=== PATIENT | female | born 1960 | race Caucasian/White ===

== ENCOUNTER 2018-10-16 19:24 | Inpatient (IN) | payer MEDICARE, OTHER ==
[~2018-10-16] VITALS: Ht 160 cm; Wt 58.1 kg
[2018-10-16 22:00] VITALS: BP 108/49
[2018-10-16] MEDS ORDERED: Isovue-370 150ml vial INJ PRN (23:00)
[2018-10-17] VITALS (7 sets, daily range): BP systolic 98–121; BP diastolic 51–63
[2018-10-17 04:23] LABS: BASOPHILS % (AUTO) 1.6 % (0.0-2.0); EOSINOPHILS % (AUTO) 1.5 % (0.0-3.0); HEMATOCRIT 45.8 % (37.0-47.0); LYMPHOCYTES % (AUTO) 49.9 % (20.0-45.0); MEAN CORPUSCULAR VOLUME 104 FL (80-99); MONOCYTES % (AUTO) 9.8 % (1.0-10.0); NEUTROPHILS % (AUTO) 37.2 % (45.0-75.0); PLATELET COUNT 304 K/UL (150-450); RED BLOOD COUNT 4.38 M/UL (4.20-5.40); RED CELL DISTRIBUTION WIDTH 13.9 % (11.6-14.8); WHITE BLOOD COUNT 8.4 K/UL (4.8-10.8)
[2018-10-17 04:33] LABS: ANION GAP 7 mmol/L (5-15); BLOOD UREA NITROGEN 9 mg/dL (7-18); CALCIUM 9.2 MG/DL (8.5-10.1); CARBON DIOXIDE 24 MMOL/L (21-32); CHLORIDE 107 MMOL/L (98-107); CREATININE 0.6 MG/DL (0.55-1.30); POTASSIUM 4.8 MMOL/L (3.5-5.1); SODIUM 138 MMOL/L (136-145)
[2018-10-17 04:53] LABS: ALANINE AMINOTRANSFERASE 20 U/L (12-78); ALBUMIN 2.5 G/DL (3.4-5.0); ALBUMIN/GLOBULIN RATIO 0.5 (1.0-2.7); ALKALINE PHOSPHATASE 58 U/L (46-116); ASPARTATE AMINO TRANSFERASE 24 U/L (15-37); BILIRUBIN,TOTAL 0.3 MG/DL (0.2-1.0)
[2018-10-17 04:59] LABS: CKMB 0.4 NG/ML (0.0-3.6)
--- NOTE | 2018-10-17 05:39 | Emergency Room Report ---
History of Present Illness General Chief Complaint: General Complaint Source: Medical Record, EMS Present Illness HPI 58-year-old female presents ED for evaluation. Patient was sent in for "cardiology evaluation". Coming from group home facility. Patient has cognitive delay. Per nursing staff patient was sent in because patient needs cardiology evaluation and patient has peripheral arterial disease. Upon arrival patient showing no signs of distress. No reported chest pain or shortness of breath. Patient initially hypotensive on arrival. No fevers or chills. No other aggravating relieving factors. No other associated symptoms Allergies: Coded Allergies: No Known Allergies (Unverified , 10/16/18) Patient History Past Medical History: seizures Past Surgical History: none Pertinent Family History: none Social History: Denies: smoking, alcohol use, drug use Now: No Immunizations: UTD Reviewed Nursing Documentation: PMH: Agreed; PSxH: Agreed Nursing Documentation-PMH Hx Diabetes: No - Hypothyroid Hx Seizures: Yes Review of Systems All Other Systems: limited Physical Exam Vital Signs Date Time Temp Pulse Resp B/P (MAP) Pulse Ox O2 Delivery O2 Flow Rate FiO2 10/16/18 19:35 97.5 56 18 91/56 94 Room Air Sp02 EP Interpretation: reviewed, normal General Appearance: other - cognitive delay Head: normocephalic Eyes: bilateral eye normal inspection, bilateral eye PERRL ENT: normal ENT inspection Neck: normal inspection Respiratory: chest non-tender, lungs clear, normal breath sounds, speaking full sentences Cardiovascular #1: regular rate, rhythm, no edema Gastrointestinal: normal inspection Rectal: deferred Genitourinary: no CVA tenderness Musculoskeletal: other - contracted lower extremities Neurologic: other - cognitive delay Psychiatric: other - cognitive delay Skin: normal inspection Lymphatic: normal inspection Procedures Critical Care Time Critical Care Time i. I feel this is a highly complex case requiring extensive working including EKG/Rhythm strip, Xray/CT/US, Blood/urine lab work, repeat exams while in ED, and administration of strong opiates/narcotics for pain control, admission to hospital or close patient follow up. Total time: 45 min bedside evaluation and treatment excludes procedures (EKG). Reason for critical care: hypotension Possible complications: hypotension, hypertension, SC, shock, arrhythmias, metabolic acidosis, end organ damage, respiratory failure. Interventions: labs, IVFs, EKG, CXR, venous/arterial duplex. Course: Patient sent in for cardiology evaluation. Also noted have history of peripheral arterial disease. Pulses noted in contracted extremities. Venous and arterial duplex limited due to contracted limbs. Difficult IV access obtained. Labs unremarkable. Patient hypotensive. Responded with IV fluids Consultations: nursing staff, EMS, family Performed by: Dr Campbell Tolerated well condition = serious j. because of unstable vital signs this patient had a condition that could potentially threaten life or limb. I feel this is a critical patient who required my full attention while patient was considered critical. Total Critical Care Time excluding procedures was greater than 35 minutes Medical Decision Making Diagnostic Impression: Primary Impression: Peripheral arterial disease Additional Impression: Hypotension Qualified Codes: I95.9 - Hypotension, unspecified ER Course Hospital Course 58 yo F presents to ED for 'cardiology evaluation'. also noted to have peripheral arterial disease Differential diagnoses include: SC/unstable angina, ACS, arterial occlusion Clinical course Patient placed on stretcher. on hospital monitor. After initial history and physical I ordered labs, EKG, chest x-ray, venous/arterial duplex labs reviewed- no leukocytosis, hb/hct stable, electrolyes ok, trop negative EKG - NSR, no acute ischemic changes interpreted by me Chest x-ray- no acute process venous and arterial duplex limited study due to contracted extremities. there is a distal pulse in both extremities initially hypotensive, but responded to IV hydration Case discussed with Dr. Allred and he agreed to accept the patient to his service for further care and support I. I feel this is a highly complex case requiring extensive working including EKG/Rhythm strip, Xray/CT/US, Blood/urine lab work, repeat exams while in ED, and administration of strong opiates/narcotics for pain control, admission to hospital or close patient follow up. Diagnosis - peripheral arterial disease, hypotension admitted to telemetry in serious condition Labs Test 10/17/18 04:00 White Blood Count 8.4 K/UL (4.8-10.8) Red Blood Count 4.38 M/UL (4.20-5.40) Hemoglobin 15.0 G/DL (12.0-16.0) Hematocrit 45.8 % (37.0-47.0) Mean Corpuscular Volume 104 FL (80-99) Mean Corpuscular Hemoglobin 34.3 PG (27.0-31.0) Mean Corpuscular Hemoglobin Concent 32.8 G/DL (32.0-36.0) Red Cell Distribution Width 13.9 % (11.6-14.8) Platelet Count 304 K/UL (150-450) Mean Platelet Volume 6.2 FL (6.5-10.1) Neutrophils (%) (Auto) 37.2 % (45.0-75.0) Lymphocytes (%) (Auto) 49.9 % (20.0-45.0) Monocytes (%) (Auto) 9.8 % (1.0-10.0) Eosinophils (%) (Auto) 1.5 % (0.0-3.0) Basophils (%) (Auto) 1.6 % (0.0-2.0) Prothrombin Time 10.4 SEC (9.30-11.50) Prothromb Time International Ratio 1.0 (0.9-1.1) Activated Partial Thromboplast Time 22 SEC (23-33) Sodium Level 138 MMOL/L (136-145) Potassium Level 4.8 MMOL/L (3.5-5.1) Chloride Level 107 MMOL/L (98-107) Carbon Dioxide Level 24 MMOL/L (21-32) Anion Gap 7 mmol/L (5-15) Blood Urea Nitrogen 9 mg/dL (7-18) Creatinine 0.6 MG/DL (0.55-1.30) Estimat Glomerular Filtration Rate > 60 mL/min (>60) Glucose Level 76 MG/DL (74-106) Calcium Level 9.2 MG/DL (8.5-10.1) Total Bilirubin 0.3 MG/DL (0.2-1.0) Aspartate Amino Transf (AST/SGOT) 24 U/L (15-37) Alanine Aminotransferase (ALT/SGPT) 20 U/L (12-78) Alkaline Phosphatase 58 U/L (46-116) Total Creatine Kinase 45 U/L (26-140) Creatine Kinase MB 0.4 NG/ML (0.0-3.6) Creatine Kinase MB Relative Index 0.8 Troponin I 0.005 ng/mL (0.000-0.056) Pro-B-Type Natriuretic Peptide 65 pg/mL (0-125) Total Protein 7.5 G/DL (6.4-8.2) Albumin 2.5 G/DL (3.4-5.0) Globulin 5.0 g/dL Albumin/Globulin Ratio 0.5 (1.0-2.7) EKG Diagnostic Results Rate: normal Rhythm: NSR ST Segments: no acute changes ASA given to the pt in ED: No Rhythm Strip Diag. Results EP Interpretation: yes Rhythm: NSR, no PVC's, no ectopy Chest X-Ray Diagnostic Results Chest X-Ray Diagnostic Results : Chest X-Ray Ordered: Yes # of Views/Limited/Complete: 1 View Indication: Other EP Interpretation: Yes Interpretation: no consolidation, no effusion, no pneumothorax, no acute cardiopulmonary disease Impression: No acute disease Electronically Signed by: Electronically signed by Jt Campbell MD CT/MRI/US Diagnostic Results CT/MRI/US Diagnostic Results : Imaging Test Ordered: venous and arterial duplex Impression limited due to contracted extremities. patent flow in L thigh. unable to properly evaluate distal LLE and R leg. Last Vital Signs Date Time Temp Pulse Resp B/P (MAP) Pulse Ox O2 Delivery O2 Flow Rate FiO2 10/17/18 02:15 98.3 61 21 98/51 99 Room Air Status: improved Disposition: ADMITTED INPATIENT Condition: Serious Referrals: NON PHYSICIAN (PCP) Jt Campbell MD Oct 17, 2018 05:39
[2018-10-17] MEDS ORDERED: Morphine Sulfate 4mg/ml Inj (IV/IM USE ONLY) IVP PRN (07:00)
[2018-10-17] MEDS ORDERED: dilTIAZem HCl 25mg/5ml Inj IV PRN (07:00)
[2018-10-17] MEDS ORDERED: Ketorolac 30mg Inj IV PRN (07:00)
[2018-10-17] MEDS ORDERED: Nitroglycerin Subl 0.4mg tab SL PRN (07:00)
[2018-10-17] MEDS ORDERED: Albuterol/Ipratropium 3ml neb HHN PRN (07:00)
[2018-10-17] MEDS ORDERED: Miralax 17gm pkt ORAL PRN (07:00)
[2018-10-17] MEDS ORDERED: Enalaprilat 2.5mg/2ml Inj IV PRN (07:00)
[2018-10-17] MEDS ORDERED: ATIVAN0.5 MG ORAL (08:05)
[2018-10-17] MEDS ORDERED: KEPPRA750 MG GT (08:05)
[2018-10-17] MEDS ORDERED: CALCIUM 500 +1 EAC3 PO (08:05)
[2018-10-17] MEDS ORDERED: ACETAMINOPHEN325 M1 GT (08:05)
[2018-10-17] MEDS ORDERED: VITAMIN D400 INTLU GT (08:05)
[2018-10-17] MEDS ORDERED: DEPAKOTE SPRIN125 M1 GT (08:05)
[2018-10-17] MEDS ORDERED: VITAMIN C500 M1 GT (08:05)
[2018-10-17] MEDS ORDERED: MULTIVITAMINS1 EAC8 ORAL (08:05)
[2018-10-17] MEDS ORDERED: MIRALAX17 G2 ORAL (08:05)
[2018-10-17] MEDS ORDERED: DOCUSATE SODIU100 MG GT (08:05)
[2018-10-17] MEDS ORDERED: LEVOTHYROXINE75 MCG GT (08:05)
[2018-10-17] MEDS ORDERED: MILK OF MA400 MG/51 ORAL (08:05)
[2018-10-17] MEDS ORDERED: GUAIFENESIN-CO118 M1 ORAL (08:05)
[2018-10-17] MEDS: Aspirin Baby 81mg ORAL SCH (08:57)
[2018-10-17] MEDS: Heparin 5000 units/ml inj SUBQ SCH ×2 (08:58→21:00)
--- NOTE | 2018-10-17 09:55 | Diagnostic Imaging Report ---
Indication: Left leg pain Technique: Limited study performed, only the left common femoral vein, downstream superficial femoral vein could be interrogated due to patient being very contracted Comparison: none Findings: In the interrogated veins, no evidence of intraluminal thrombus is demonstrated. Normal compressibility. Normal phasic Doppler waveforms., Impression: Very limited exam. No evidence of common femoral or downstream femoral venous thrombosis demonstrated This agrees with the preliminary interpretation provided [facility] by [facility].
--- NOTE | 2018-10-17 10:37 | Diagnostic Imaging Report ---
Indication: Left leg pain Technique: Grayscale and duplex imaging of the left lower extremity arteries. Note that only limited images could be obtained, of the common femoral and proximal to mid superficial femoral artery, patient contracture. Comparison: none Findings: Doppler waveforms at all visualized levels are biphasic with sharp systolic peaks. Color Doppler demonstrates normal luminal patency. Impression: Limited exam, as described No evidence of lower extremity arterial insufficiency to the level of the mid superficial femoral artery. Distal disease not excludable
[2018-10-17] MEDS ORDERED: DEPAKOTE SPRIN125 MG PO (10:59)
[2018-10-17] MEDS: NovoLOG Insulin Flexpen SUBQ SCH ×2 (12:00→17:41)
--- NOTE | 2018-10-17 12:11 | Diagnostic Imaging Report ---
Indication: Chest pain Technique: One view of the chest Comparison: none Findings: Patient's chin obscures the upper mediastinum. The lungs and pleural spaces are clear. Heart size is normal. Impression: No acute process
--- NOTE | 2018-10-17 12:41 | History and Physical ---
History of Present Illness General Date patient seen: Oct 17, 2018 Reason for Hospitalization: General Complaint Present Illness HPI 58 year old female with hx trisomy 21, PEG feeding tube, seizures, hypothyroid, bed bound, [facility] resident [facility] for cardiac and vascular evaluation. Pt cant give any history. It's unknown what triggered the transfer to ER for cardiac evaluation. Pt was hypotensive in ER , therefore she is admitted to telemetry for further work up. Allergies: Coded Allergies: No Known Allergies (Unverified , 10/16/18) Medication History Scheduled Ascorbic Acid* (Vitamin C*), 500 MG GT DAILY, (Reported) Docusate Sodium* (Docusate Sodium*), 100 MG GT TWICE A DAY, (Reported) Levetiracetam (Keppra), 750 MG GT TWICE A DAY, (Reported) Levothyroxine Sodium* (Levothyroxine Sodium*), 75 MCG GT DAILY, (Reported) Lorazepam* (Ativan*), 0.5 MG ORAL THREE TIMES A DAY, (Reported) Magnesium Hydroxide* (Milk Of Magnesia*), 30 ML ORAL DAILY, (Reported) Multivitamin With Minerals (Multivitamins With Minerals*), 1 TAB ORAL DAILY, ( Reported) Polyethylene Glycol 3350* (Miralax*), 17 GM ORAL DAILY, (Reported) Vitamin D (Vitamin D3), 100 UNITS GT DAILY, (Reported) Scheduled PRN Acetaminophen* (Acetaminophen 325MG Tablet*), 650 MG GT Q4H PRN for Mild Pain ( Pain Scale 1-3), (Reported) Guaifenesin/Codeine Phos* (Robitussin Ac*), 1 TSP ORAL Q4H PRN for For Cough, ( Reported) Miscellaneous Medications Calcium Carbonate/Vitamin D3 (Calcium 500 + D Tablet), 1 EACH PO, (Reported) Divalproex Sodium (Depakote Sprinkle), 500 MG PO, (Reported) Patient History Healthcare decision maker Resuscitation status Full Code Advanced Directive on File Past Medical/Surgical History Past Medical/Surgical History: (1) Trisomy 21, Down syndrome (2) Hypothyroidism (3) Seizure disorder Review of Systems All Other Systems: negative except mentioned in HPI Physical Exam General Appearance: cachetic Lines, tubes and drains: peripheral HEENT: normocephalic Neck: non-tender, normal alignment Respiratory/Chest: chest wall non-tender, lungs clear Cardiovascular/Chest: normal peripheral pulses, normal rate Abdomen: normal bowel sounds, non tender Genitourinary/Rectal: normal genital exam Extremities: normal range of motion Skin Exam: normal pigmentation Last 24 Hour Vital Signs Date Time Temp Pulse Resp B/P (MAP) Pulse Ox O2 Delivery O2 Flow Rate FiO2 10/17/18 12:00 97.2 71 20 109/55 (73) 95 10/17/18 10:07 98.3 63 16 104/55 100 Room Air 10/17/18 09:01 Room Air 10/17/18 08:07 97.0 62 21 121/57 (78) 97 10/17/18 06:15 98.3 63 16 104/55 100 Room Air 10/17/18 04:30 98.7 67 18 100/63 99 Room Air 10/17/18 02:15 98.3 61 21 98/51 99 Room Air 10/17/18 01:00 98.1 63 18 99/62 99 Room Air 10/17/18 00:15 98.1 60 14 101/62 99 Room Air 10/16/18 22:00 97.5 58 14 108/49 97 Room Air 10/16/18 19:35 97.5 56 18 91/56 94 Room Air Laboratory Tests Test 10/17/18 04:00 White Blood Count 8.4 K/UL (4.8-10.8) Red Blood Count 4.38 M/UL (4.20-5.40) Hemoglobin 15.0 G/DL (12.0-16.0) Hematocrit 45.8 % (37.0-47.0) Mean Corpuscular Volume 104 FL (80-99) H Mean Corpuscular Hemoglobin 34.3 PG (27.0-31.0) H Mean Corpuscular Hemoglobin Concent 32.8 G/DL (32.0-36.0) Red Cell Distribution Width 13.9 % (11.6-14.8) Platelet Count 304 K/UL (150-450) Mean Platelet Volume 6.2 FL (6.5-10.1) L Neutrophils (%) (Auto) 37.2 % (45.0-75.0) L Lymphocytes (%) (Auto) 49.9 % (20.0-45.0) H Monocytes (%) (Auto) 9.8 % (1.0-10.0) Eosinophils (%) (Auto) 1.5 % (0.0-3.0) Basophils (%) (Auto) 1.6 % (0.0-2.0) Prothrombin Time 10.4 SEC (9.30-11.50) Prothromb Time International Ratio 1.0 (0.9-1.1) Activated Partial Thromboplast Time 22 SEC (23-33) L Sodium Level 138 MMOL/L (136-145) Potassium Level 4.8 MMOL/L (3.5-5.1) Chloride Level 107 MMOL/L (98-107) Carbon Dioxide Level 24 MMOL/L (21-32) Anion Gap 7 mmol/L (5-15) Blood Urea Nitrogen 9 mg/dL (7-18) Creatinine 0.6 MG/DL (0.55-1.30) Estimat Glomerular Filtration Rate > 60 mL/min (>60) Glucose Level 76 MG/DL (74-106) Calcium Level 9.2 MG/DL (8.5-10.1) Total Bilirubin 0.3 MG/DL (0.2-1.0) Aspartate Amino Transf (AST/SGOT) 24 U/L (15-37) Alanine Aminotransferase (ALT/SGPT) 20 U/L (12-78) Alkaline Phosphatase 58 U/L (46-116) Total Creatine Kinase 45 U/L (26-140) Creatine Kinase MB 0.4 NG/ML (0.0-3.6) Creatine Kinase MB Relative Index 0.8 Troponin I 0.005 ng/mL (0.000-0.056) Pro-B-Type Natriuretic Peptide 65 pg/mL (0-125) Total Protein 7.5 G/DL (6.4-8.2) Albumin 2.5 G/DL (3.4-5.0) L Globulin 5.0 g/dL Albumin/Globulin Ratio 0.5 (1.0-2.7) L Height (Feet): 5 Height (Inches): 3.00 Weight (Pounds): 129 Medications Current Medications Medications (Trade) Dose Ordered Sig/Katy Route PRN Reason Start Time Stop Time Status Last Admin Dose Admin Acetaminophen (Tylenol) 650 mg Q4H PRN ORAL FEVER 10/17/18 07:00 11/16/18 06:59 Albuterol/ Ipratropium (Albuterol/ Ipratropium) 3 ml Q4H PRN HHN Shortness of Breath 10/17/18 07:00 10/22/18 06:59 Aspirin (ASA) 162 mg DAILY ORAL 10/17/18 09:00 11/16/18 08:59 10/17/18 08:57 Dextrose (Dextrose 50%) 25 ml Q30M PRN IV Hypoglycemia 10/17/18 11:15 11/16/18 11:14 Dextrose (Dextrose 50%) 50 ml Q30M PRN IV Hypoglycemia 10/17/18 11:15 11/16/18 11:14 Diltiazem HCl (Cardizem) 10 mg Q1H PRN IV heart rate more than 120, 10/17/18 07:00 11/16/18 06:59 Divalproex Sodium (Depakote Sprinkles) 500 mg Q12HR GT 10/17/18 21:00 11/16/18 20:59 Enalaprilat (Vasotec) 2.5 mg Q6H PRN IV sbp more than 160 10/17/18 07:00 11/16/18 06:59 Heparin Sodium (Porcine) (Heparin 5000 units/ml) 5,000 units EVERY 12 HOURS SUBQ 10/17/18 09:00 11/16/18 08:59 10/17/18 08:58 Insulin Aspart (NovoLOG) Q6HR SUBQ 10/17/18 12:00 11/16/18 11:59 Ketorolac Tromethamine (Toradol 30mg) 30 mg Q6H PRN IV moderate pain ( 4-6) 10/17/18 07:00 10/22/18 06:59 Levetiracetam (Keppra) 750 mg Q12HR GT 10/17/18 21:00 11/16/18 20:59 Levothyroxine Sodium (Synthroid) 75 mcg DAILY GT 10/17/18 12:30 11/16/18 12:29 UNV Levothyroxine Sodium (Synthroid) 75 mcg DAILY@0630 ORAL 10/18/18 06:30 11/17/18 06:29 Morphine Sulfate (Morphine Sulfate) 2 mg Q4H PRN IVP severe Pain (Pain Scale 7-10) 10/17/18 07:00 10/24/18 06:59 Nitroglycerin (Ntg) 0.4 mg Q5M PRN SL Prn Chest Pain 10/17/18 07:00 11/16/18 06:59 Ondansetron HCl (Zofran) 4 mg Q6H PRN IVP Nausea & Vomiting 10/17/18 07:00 11/16/18 06:59 Polyethylene Glycol (Miralax) 17 gm DAILYPRN PRN ORAL Constipation 10/17/18 07:00 11/16/18 06:59 Temazepam (Restoril) 15 mg HSPRN PRN ORAL Insomnia 10/17/18 07:00 10/24/18 06:59 Assessment/Plan Problem List: (1) Hypotension ICD Codes: I95.9 - Hypotension, unspecified SNOMED: 46554102, [id number] Qualifiers: Qualified Codes: I95.9 - Hypotension, unspecified (2) Peripheral arterial disease ICD Codes: I73.9 - Peripheral vascular disease, unspecified SNOMED: 849719936, 467151210 (3) Seizure disorder ICD Codes: G40.909 - Epilepsy, unspecified, not intractable, without status epilepticus SNOMED: 073720036 (4) Hypothyroidism ICD Codes: E03.9 - Hypothyroidism, unspecified SNOMED: 07722225 (5) Trisomy 21, Down syndrome ICD Codes: Q90.9 - Down syndrome, unspecified SNOMED: 79872206 Assessment/Plan telemetry monitoring 2D echo cardiology evaluation nutrition evaluation symptomatic treatment synthyroid replacement Elayne Allred MD Oct 17, 2018 12:41
--- NOTE | 2018-10-17 15:37 | Cardiology Report ---
APPROVED REPORT EXAM: Two-dimensional and M-mode echocardiogram with Doppler and color Doppler. M-Mode DIMENSIONS IVSd1.1 (0.7-1.1cm)Left Atrium (MM)2.5 (1.6-4.0cm) LVDd5.7 (3.5-5.6cm)Aortic Root3.5 (2.0-3.7cm) PWd0.8 (0.7-1.1cm)Aortic Cusp Exc.1.8 (1.5-2.0cm) IVSs1.4 cm LVDs3.7 (2.5-4.0cm) PWs1.3 cm Technically difficult study due to poor acoustical windows. Normal left ventricular chamber size, systolic function and wall motion to extent visualized. Left ventricular ejection fraction estimated to be 55-60 %. No evidence of left ventricular hypertrophy. Anterior Echo-free space, may be due to pericardial fat or effusion. All other cardiac chamber sizes are within normal limits. Focal aortic valve sclerosis with adequate cusp excursion. Thickened mitral valve leaflets with normal excursion. Mitral annulus and aortic root calcification. Pulmonic valve not well visualized. Normal tricuspid valve structure. IVC at normal size with physiologic collapse. A color flow and spectral Doppler study was performed and revealed: No aortic regurgitation. Trace mitral regurgitation. Mitral diastolic velocities suggest reduced left ventricular relaxation c/w mild LV diastolic dysfunction (Grade I ). Trace tricuspid regurgitation. Tricuspid systolic velocities suggests peak right ventricular systolic pressure of 10 mmHg. No pulmonic regurgitation present.
--- NOTE | 2018-10-17 15:59 | Cardiology Report ---
APPROVED REPORT EKG Measurement Heart [id number] [id number] Normal sinus rhythm Low voltage QRS Right bundle branch block Abnormal ECG
--- NOTE | 2018-10-17 20:16 | Cardiology Progress Note ---
Assessment/Plan Assessment/Plan [id number] Objective Last 24 Hour Vital Signs Date Time Temp Pulse Resp B/P (MAP) Pulse Ox O2 Delivery O2 Flow Rate FiO2 10/17/18 16:00 53 10/17/18 12:00 56 10/17/18 12:00 97.2 71 20 109/55 (73) 95 10/17/18 10:07 98.3 63 16 104/55 100 Room Air 10/17/18 09:01 Room Air 10/17/18 08:41 57 10/17/18 08:07 97.0 62 21 121/57 (78) 97 10/17/18 06:15 98.3 63 16 104/55 100 Room Air 10/17/18 04:30 98.7 67 18 100/63 99 Room Air 10/17/18 02:15 98.3 61 21 98/51 99 Room Air 10/17/18 01:00 98.1 63 18 99/62 99 Room Air 10/17/18 00:15 98.1 60 14 101/62 99 Room Air 10/16/18 22:00 97.5 58 14 108/49 97 Room Air Laboratory Tests Test 10/17/18 04:00 White Blood Count 8.4 K/UL (4.8-10.8) Red Blood Count 4.38 M/UL (4.20-5.40) Hemoglobin 15.0 G/DL (12.0-16.0) Hematocrit 45.8 % (37.0-47.0) Mean Corpuscular Volume 104 FL (80-99) H Mean Corpuscular Hemoglobin 34.3 PG (27.0-31.0) H Mean Corpuscular Hemoglobin Concent 32.8 G/DL (32.0-36.0) Red Cell Distribution Width 13.9 % (11.6-14.8) Platelet Count 304 K/UL (150-450) Mean Platelet Volume 6.2 FL (6.5-10.1) L Neutrophils (%) (Auto) 37.2 % (45.0-75.0) L Lymphocytes (%) (Auto) 49.9 % (20.0-45.0) H Monocytes (%) (Auto) 9.8 % (1.0-10.0) Eosinophils (%) (Auto) 1.5 % (0.0-3.0) Basophils (%) (Auto) 1.6 % (0.0-2.0) Prothrombin Time 10.4 SEC (9.30-11.50) Prothromb Time International Ratio 1.0 (0.9-1.1) Activated Partial Thromboplast Time 22 SEC (23-33) L Sodium Level 138 MMOL/L (136-145) Potassium Level 4.8 MMOL/L (3.5-5.1) Chloride Level 107 MMOL/L (98-107) Carbon Dioxide Level 24 MMOL/L (21-32) Anion Gap 7 mmol/L (5-15) Blood Urea Nitrogen 9 mg/dL (7-18) Creatinine 0.6 MG/DL (0.55-1.30) Estimat Glomerular Filtration Rate > 60 mL/min (>60) Glucose Level 76 MG/DL (74-106) Calcium Level 9.2 MG/DL (8.5-10.1) Total Bilirubin 0.3 MG/DL (0.2-1.0) Aspartate Amino Transf (AST/SGOT) 24 U/L (15-37) Alanine Aminotransferase (ALT/SGPT) 20 U/L (12-78) Alkaline Phosphatase 58 U/L (46-116) Total Creatine Kinase 45 U/L (26-140) Creatine Kinase MB 0.4 NG/ML (0.0-3.6) Creatine Kinase MB Relative Index 0.8 Troponin I 0.005 ng/mL (0.000-0.056) Pro-B-Type Natriuretic Peptide 65 pg/mL (0-125) Total Protein 7.5 G/DL (6.4-8.2) Albumin 2.5 G/DL (3.4-5.0) L Globulin 5.0 g/dL Albumin/Globulin Ratio 0.5 (1.0-2.7) L Josue Pantoja MD Oct 17, 2018 20:16
[2018-10-17] MEDS ORDERED: Depakote 125mg Sprinkles GT SCH (21:00)
[2018-10-17] MEDS: Depakote 125mg Sprinkles GT SCH (21:00)
[2018-10-17] MEDS: levETIRAcetam 500mg/5ml Liquid GT SCH (21:00)
--- NOTE | 2018-10-17 23:00 | Consultation ---
DATE OF CONSULTATION: 10/17/2018 CARDIAC CONSULTATION CONSULTING PHYSICIAN: Josue Pantoja M.D. REFERRING PHYSICIAN: Elayne Allred M.D. REASON FOR EVALUATION: Possible vascular insufficiency. HISTORY OF PRESENT ILLNESS: This is a middle-aged female, developmentally delayed. The patient is a resident of convalescent facility and was transferred because of possibility of vascular insufficiency of the lower extremities. Consultation was requested. The patient is not able to provide any meaningful history whatsoever. PAST MEDICAL HISTORY: Positive for Down syndrome and malnutrition, status post PEG, peripheral vascular disease, sacral decubitus ulcers being documented as part of her diagnoses. MEDICATIONS: Include Ativan, calcium, divalproex, Colace, Keppra, Synthroid, MiraLAX, multivitamin, Robitussin, Tylenol, vitamin C, vitamin D, and no other medical information is available. ALLERGIES: The patient is not allergic to any medications. SOCIAL HISTORY: She does not smoke or drink. She lives in a convalescent facility. PHYSICAL EXAMINATION: GENERAL: Shows to be a middle-aged female, in no respiratory distress. Poor dental hygiene. VITAL SIGNS: Blood pressure is 109/55 with heart rate between 53 and 71, temperature 97.2. NECK: Supple. LUNGS: Clear to auscultation. CARDIAC: Regular rate and rhythm. ABDOMEN: Soft. Difficult to examine because of contracted lower extremities over the abdomen. EXTREMITIES: Contracted severely that there are significant abnormalities of the toenail. The patient does have palpable pulses in dorsalis pedis bilaterally. NEUROLOGICAL: Awake and responsive. Not communicative. LABORATORY VALUES: An echocardiogram was performed and showed ejection fraction being normal. No significant valve pathology was noted. EKG shows sinus rhythm, but with right bundle-branch conduction defect with leftward axis. No ST-T wave abnormalities. Venous duplex study of the lower extremities, limited views, does not show any significant problems of the proximal veins of the lower extremities and arterial duplex of lower extremity did not show inflow disease in the proximal portion of the arteries, distal portion was not amenable to visualization secondary to contractures. A chest x-ray was performed in the emergency room that showed no evidence of any acute process. INR 1, PTT of 22. Sodium is 138, potassium 4.0, chloride 107, bicarbonate 24, BUN of 9, creatinine 0.8. Troponin 0.05. ProBNP is only 65. White count 8.4, hemoglobin 15, and platelet count 304,000. ASSESSMENT AND PLAN: 1. Right bundle-branch conduction defect. 2. Sinus bradycardia. 3. Severely contracted lower extremities. 4. Down syndrome. 5. History of sacral decubitus ulcers. Dr. Allred, this patient was seen in cardiac consultation. Although venous and arterial duplex of lower extremities are difficult to perform, she does have palpable pulses of the lower extremities. Her echocardiogram appears to be normal LV function. EKG shows sinus bradycardia, but no significant abnormalities are noted. I have no further recommendations from cardiac point of view at this time. Discharge planning as per yourself. Josue Pantoja M.D. DR: Ryan JOB#: [id number] CC:
[2018-10-18] MEDS: NovoLOG Insulin Flexpen SUBQ SCH ×4 (06:00→18:00)
[2018-10-18 08:00] VITALS: BP 100/59
[2018-10-18 08:04] LABS: BASOPHILS % (AUTO) 1.5 % (0.0-2.0); EOSINOPHILS % (AUTO) 1.6 % (0.0-3.0); HEMATOCRIT 39.8 % (37.0-47.0); HEMOGLOBIN 13.3 G/DL (12.0-16.0); LYMPHOCYTES % (AUTO) 51.5 % (20.0-45.0); MEAN CORPUSCULAR VOLUME 102 FL (80-99); MONOCYTES % (AUTO) 12.9 % (1.0-10.0); NEUTROPHILS % (AUTO) 32.6 % (45.0-75.0); PLATELET COUNT 353 K/UL (150-450); RED CELL DISTRIBUTION WIDTH 13.6 % (11.6-14.8); WHITE BLOOD COUNT 6.4 K/UL (4.8-10.8)
[2018-10-18] MEDS: Heparin 5000 units/ml inj SUBQ SCH ×2 (08:20→20:50)
[2018-10-18] MEDS: levETIRAcetam 500mg/5ml Liquid GT SCH ×2 (08:21→20:48)
[2018-10-18] MEDS: Depakote 125mg Sprinkles GT SCH ×2 (08:22→20:50)
[2018-10-18] MEDS: Aspirin Baby 81mg ORAL SCH (08:22)
[2018-10-18 09:25] LABS: HDL CHOLESTEROL 32 MG/DL (40-60); TRIGLYCERIDES 94 MG/DL (30-150)
[2018-10-18 11:01] LABS: CHOLESTEROL 142 MG/DL (< 200)
[2018-10-18 12:00] VITALS: BP 113/71
--- NOTE | 2018-10-18 12:06 | Pulmonology Progress Note ---
Assessment/Plan Problems: (1) Hypotension (2) Peripheral arterial disease (3) Seizure disorder (4) Hypothyroidism (5) Trisomy 21, Down syndrome Assessment/Plan bp better still bradycardic increase the dose of synthroid all noted cardiology consult appreciated echo reviewed no seizures witnessed sinus rafael with lowest rate of 44 Subjective ROS Limited/Unobtainable: No Constitutional: Reports: no symptoms HEENT: Repors: no symptoms Respiratory: Reports: no symptoms Allergies: Coded Allergies: No Known Allergies (Unverified , 10/16/18) Objective Last 24 Hour Vital Signs Date Time Temp Pulse Resp B/P (MAP) Pulse Ox O2 Delivery O2 Flow Rate FiO2 10/18/18 09:00 Room Air 10/18/18 08:50 60 18 21 10/18/18 08:00 53 10/18/18 08:00 97.8 60 20 100/59 (73) 95 10/18/18 04:00 64 10/18/18 00:00 57 10/17/18 21:00 Room Air 10/17/18 20:00 84 10/17/18 16:00 53 General Appearance: WD/WN HEENT: normocephalic, atraumatic Respiratory/Chest: chest wall non-tender, lungs clear Cardiovascular: normal peripheral pulses, normal rate Abdomen: normal bowel sounds, soft, non tender Genitourinary: normal external genitalia Extremities: no clubbing Skin: no lesions Microbiology Date/Time Source Procedure Growth Status 10/17/18 06:00 Nasal Nares MRSA Culture - Final Staphylococcus Aureus - Mrsa Complete Laboratory Tests 10/18/18 06:52: White Blood Count 6.4, Red Blood Count 3.90L, Hemoglobin 13.3, Hematocrit 39.8, Mean Corpuscular Volume 102H, Mean Corpuscular Hemoglobin 34.1H, Mean Corpuscular Hemoglobin Concent 33.5, Red Cell Distribution Width 13.6, Platelet Count 353, Mean Platelet Volume 6.8, Neutrophils (%) (Auto) 32.6L, Lymphocytes ( %) (Auto) 51.5H, Monocytes (%) (Auto) 12.9H, Eosinophils (%) (Auto) 1.6, Basophils (%) (Auto) 1.5, Prothrombin Time 10.8, Prothromb Time International Ratio 1.0, Activated Partial Thromboplast Time 30, Troponin I 0.000, C-Reactive Protein, Quantitative 2.6H, Triglycerides Level 94, Cholesterol Level 142, LDL Cholesterol 91, HDL Cholesterol 32L, Cholesterol/HDL Ratio 4.4, Thyroid Stimulating Hormone (TSH) 6.754H Current Medications Medications (Trade) Dose Ordered Sig/Katy Route PRN Reason Start Time Stop Time Status Last Admin Dose Admin Acetaminophen (Tylenol) 650 mg Q4H PRN ORAL FEVER 10/17/18 07:00 11/16/18 06:59 Albuterol/ Ipratropium (Albuterol/ Ipratropium) 3 ml Q4H PRN HHN Shortness of Breath 10/17/18 07:00 10/22/18 06:59 Aspirin (ASA) 162 mg DAILY ORAL 10/17/18 09:00 11/16/18 08:59 10/18/18 08:22 Dextrose (Dextrose 50%) 25 ml Q30M PRN IV Hypoglycemia 10/17/18 11:15 11/16/18 11:14 Dextrose (Dextrose 50%) 50 ml Q30M PRN IV Hypoglycemia 10/17/18 11:15 11/16/18 11:14 Diltiazem HCl (Cardizem) 10 mg Q1H PRN IV heart rate more than 120, 10/17/18 07:00 11/16/18 06:59 Divalproex Sodium (Depakote Sprinkles) 500 mg Q12HR GT 10/17/18 21:00 11/16/18 20:59 10/18/18 08:22 Enalaprilat (Vasotec) 2.5 mg Q6H PRN IV sbp more than 160 10/17/18 07:00 11/16/18 06:59 Heparin Sodium (Porcine) (Heparin 5000 units/ml) 5,000 units EVERY 12 HOURS SUBQ 10/17/18 09:00 11/16/18 08:59 10/18/18 08:20 Insulin Aspart (NovoLOG) Q6HR SUBQ 10/17/18 12:00 11/16/18 11:59 10/17/18 17:41 Ketorolac Tromethamine (Toradol 30mg) 30 mg Q6H PRN IV moderate pain ( 4-6) 10/17/18 07:00 10/22/18 06:59 Levetiracetam (Keppra) 750 mg Q12HR GT 10/17/18 21:00 11/16/18 20:59 10/18/18 08:21 Levothyroxine Sodium (Synthroid) 75 mcg DAILY@0630 ORAL 10/18/18 06:30 11/17/18 06:29 10/18/18 06:30 Morphine Sulfate (Morphine Sulfate) 2 mg Q4H PRN IVP severe Pain (Pain Scale 7-10) 10/17/18 07:00 10/24/18 06:59 Nitroglycerin (Ntg) 0.4 mg Q5M PRN SL Prn Chest Pain 10/17/18 07:00 11/16/18 06:59 Ondansetron HCl (Zofran) 4 mg Q6H PRN IVP Nausea & Vomiting 10/17/18 07:00 11/16/18 06:59 Polyethylene Glycol (Miralax) 17 gm DAILYPRN PRN ORAL Constipation 10/17/18 07:00 11/16/18 06:59 Temazepam (Restoril) 15 mg HSPRN PRN ORAL Insomnia 10/17/18 07:00 10/24/18 06:59 Elayne Allred MD Oct 18, 2018 12:06
[2018-10-18 16:00] VITALS: BP 114/63
[2018-10-18 20:00] VITALS: BP 104/68
--- NOTE | 2018-10-18 20:10 | Cardiology Progress Note ---
Assessment/Plan Assessment/Plan 1. Right bundle-branch conduction defect. 2. Sinus bradycardia. 3. Severely contracted lower extremities. 4. Down syndrome. 5. History of sacral decubitus ulcers. noted synthorid dose increase tele sinus no new labs Subjective ROS Limited/Unobtainable: Yes Objective Last 24 Hour Vital Signs Date Time Temp Pulse Resp B/P (MAP) Pulse Ox O2 Delivery O2 Flow Rate FiO2 10/18/18 16:00 97.0 85 19 114/63 (80) 96 10/18/18 16:00 59 10/18/18 12:00 97.0 48 20 113/71 (85) 96 10/18/18 12:00 72 10/18/18 09:00 Room Air 10/18/18 08:50 60 18 21 10/18/18 08:00 53 10/18/18 08:00 97.8 60 20 100/59 (73) 95 10/18/18 04:00 64 10/18/18 00:00 57 10/17/18 21:00 Room Air General Appearance: no apparent distress, alert Cardiovascular: normal rate Respiratory/Chest: lungs clear, normal breath sounds Abdomen: normal bowel sounds, non tender, soft Extremities: no swelling Laboratory Tests Test 10/18/18 06:52 White Blood Count 6.4 K/UL (4.8-10.8) Red Blood Count 3.90 M/UL (4.20-5.40) L Hemoglobin 13.3 G/DL (12.0-16.0) Hematocrit 39.8 % (37.0-47.0) Mean Corpuscular Volume 102 FL (80-99) H Mean Corpuscular Hemoglobin 34.1 PG (27.0-31.0) H Mean Corpuscular Hemoglobin Concent 33.5 G/DL (32.0-36.0) Red Cell Distribution Width 13.6 % (11.6-14.8) Platelet Count 353 K/UL (150-450) Mean Platelet Volume 6.8 FL (6.5-10.1) Neutrophils (%) (Auto) 32.6 % (45.0-75.0) L Lymphocytes (%) (Auto) 51.5 % (20.0-45.0) H Monocytes (%) (Auto) 12.9 % (1.0-10.0) H Eosinophils (%) (Auto) 1.6 % (0.0-3.0) Basophils (%) (Auto) 1.5 % (0.0-2.0) Prothrombin Time 10.8 SEC (9.30-11.50) Prothromb Time International Ratio 1.0 (0.9-1.1) Activated Partial Thromboplast Time 30 SEC (23-33) Troponin I 0.000 ng/mL (0.000-0.056) C-Reactive Protein, Quantitative 2.6 mg/dL (0.00-0.90) H Triglycerides Level 94 MG/DL (30-150) Cholesterol Level 142 MG/DL (< 200) LDL Cholesterol 91 mg/dL (<100) HDL Cholesterol 32 MG/DL (40-60) L Cholesterol/HDL Ratio 4.4 (3.3-4.4) Thyroid Stimulating Hormone (TSH) 6.754 uiU/mL (0.358-3.740) Free Thyroxine 0.92 NG/DL (0.76-1.46) Free Triiodothyronine 1.5 pg/mL (2.3-4.2) L Microbiology Date/Time Source Procedure Growth Status 10/17/18 06:00 Nasal Nares MRSA Culture - Final Staphylococcus Aureus - Mrsa Complete Josue Pantoja MD Oct 18, 2018 20:10
--- NOTE | 2018-10-18 23:11 | Consultation ---
History of Present Illness General Chief Complaint: General Complaint Present Illness HPI 58 yo female with hx of down syndrome who was transferred via vascular insufficiency of the lower extremities. The patient was confused and he was not able to provide any meaningful history. the pt has been suffering from DD, anxiety and mood lability. the pt has been taking Ativan and Depakote outside of the hospital . the pt is manageable however has episodes of agitation Allergies: Coded Allergies: No Known Allergies (Unverified , 10/16/18) Medication History Scheduled Ascorbic Acid* (Vitamin C*), 500 MG GT DAILY, (Reported) Docusate Sodium* (Docusate Sodium*), 100 MG GT TWICE A DAY, (Reported) Levetiracetam (Keppra), 750 MG GT TWICE A DAY, (Reported) Levothyroxine Sodium* (Levothyroxine Sodium*), 75 MCG GT DAILY, (Reported) Lorazepam* (Ativan*), 0.5 MG ORAL THREE TIMES A DAY, (Reported) Magnesium Hydroxide* (Milk Of Magnesia*), 30 ML ORAL DAILY, (Reported) Multivitamin With Minerals (Multivitamins With Minerals*), 1 TAB ORAL DAILY, ( Reported) Polyethylene Glycol 3350* (Miralax*), 17 GM ORAL DAILY, (Reported) Vitamin D (Vitamin D3), 100 UNITS GT DAILY, (Reported) Scheduled PRN Acetaminophen* (Acetaminophen 325MG Tablet*), 650 MG GT Q4H PRN for Mild Pain ( Pain Scale 1-3), (Reported) Guaifenesin/Codeine Phos* (Robitussin Ac*), 1 TSP ORAL Q4H PRN for For Cough, ( Reported) Miscellaneous Medications Calcium Carbonate/Vitamin D3 (Calcium 500 + D Tablet), 1 EACH PO, (Reported) Divalproex Sodium (Depakote Sprinkle), 500 MG PO, (Reported) Patient History Limited by: medical condition History Provided By: Medical Record, PMD Healthcare decision maker Resuscitation status Full Code Advanced Directive on File Past Medical/Surgical History Past Medical/Surgical History: (1) Trisomy 21, Down syndrome (2) Hypotension (3) Peripheral arterial disease (4) Seizure disorder (5) Hypothyroidism Review of Systems Psychiatric: Reports: emotional problems Physical Exam General Appearance: alert, confused, agitated, overweight Last 24 Hour Vital Signs Date Time Temp Pulse Resp B/P (MAP) Pulse Ox O2 Delivery O2 Flow Rate FiO2 10/18/18 21:21 69 18 Room Air 21 10/18/18 21:00 Room Air 10/18/18 20:00 97.7 74 18 104/68 (80) 92 10/18/18 20:00 74 10/18/18 16:00 97.0 85 19 114/63 (80) 96 10/18/18 16:00 59 10/18/18 12:00 97.0 48 20 113/71 (85) 96 10/18/18 12:00 72 10/18/18 09:00 Room Air 10/18/18 08:50 60 18 21 10/18/18 08:00 53 10/18/18 08:00 97.8 60 20 100/59 (73) 95 10/18/18 04:00 64 10/18/18 00:00 57 Laboratory Tests Test 10/18/18 06:52 White Blood Count 6.4 K/UL (4.8-10.8) Red Blood Count 3.90 M/UL (4.20-5.40) L Hemoglobin 13.3 G/DL (12.0-16.0) Hematocrit 39.8 % (37.0-47.0) Mean Corpuscular Volume 102 FL (80-99) H Mean Corpuscular Hemoglobin 34.1 PG (27.0-31.0) H Mean Corpuscular Hemoglobin Concent 33.5 G/DL (32.0-36.0) Red Cell Distribution Width 13.6 % (11.6-14.8) Platelet Count 353 K/UL (150-450) Mean Platelet Volume 6.8 FL (6.5-10.1) Neutrophils (%) (Auto) 32.6 % (45.0-75.0) L Lymphocytes (%) (Auto) 51.5 % (20.0-45.0) H Monocytes (%) (Auto) 12.9 % (1.0-10.0) H Eosinophils (%) (Auto) 1.6 % (0.0-3.0) Basophils (%) (Auto) 1.5 % (0.0-2.0) Prothrombin Time 10.8 SEC (9.30-11.50) Prothromb Time International Ratio 1.0 (0.9-1.1) Activated Partial Thromboplast Time 30 SEC (23-33) Troponin I 0.000 ng/mL (0.000-0.056) C-Reactive Protein, Quantitative 2.6 mg/dL (0.00-0.90) H Triglycerides Level 94 MG/DL (30-150) Cholesterol Level 142 MG/DL (< 200) LDL Cholesterol 91 mg/dL (<100) HDL Cholesterol 32 MG/DL (40-60) L Cholesterol/HDL Ratio 4.4 (3.3-4.4) Thyroid Stimulating Hormone (TSH) 6.754 uiU/mL (0.358-3.740) Free Thyroxine 0.92 NG/DL (0.76-1.46) Free Triiodothyronine 1.5 pg/mL (2.3-4.2) L Height (Feet): 5 Height (Inches): 3.00 Weight (Pounds): 128 Medications Current Medications Medications (Trade) Dose Ordered Sig/Katy Route PRN Reason Start Time Stop Time Status Last Admin Dose Admin Acetaminophen (Tylenol) 650 mg Q4H PRN ORAL FEVER 10/17/18 07:00 11/16/18 06:59 Albuterol/ Ipratropium (Albuterol/ Ipratropium) 3 ml Q4H PRN HHN Shortness of Breath 10/17/18 07:00 10/22/18 06:59 Aspirin (ASA) 162 mg DAILY ORAL 10/17/18 09:00 11/16/18 08:59 10/18/18 08:22 Dextrose (Dextrose 50%) 25 ml Q30M PRN IV Hypoglycemia 10/17/18 11:15 11/16/18 11:14 Dextrose (Dextrose 50%) 50 ml Q30M PRN IV Hypoglycemia 10/17/18 11:15 11/16/18 11:14 Divalproex Sodium (Depakote Sprinkles) 500 mg Q12HR GT 10/17/18 21:00 11/16/18 20:59 10/18/18 20:50 Heparin Sodium (Porcine) (Heparin 5000 units/ml) 5,000 units EVERY 12 HOURS SUBQ 10/17/18 09:00 11/16/18 08:59 10/18/18 20:50 Insulin Aspart (NovoLOG) Q6HR SUBQ 10/17/18 12:00 11/16/18 11:59 10/17/18 17:41 Levetiracetam (Keppra) 750 mg Q12HR GT 10/17/18 21:00 11/16/18 20:59 10/18/18 20:48 Levothyroxine Sodium (Synthroid) 125 mcg DAILY@0630 ORAL 10/19/18 06:30 11/17/18 06:29 Assessment/Plan Problem List: (1) Trisomy 21, Down syndrome ICD Codes: Q90.9 - Down syndrome, unspecified SNOMED: 65981434 (2) Seizure disorder ICD Codes: G40.909 - Epilepsy, unspecified, not intractable, without status epilepticus SNOMED: 541973666 Assessment/Plan con tdepakote cont José Antonio Landis MD Oct 18, 2018 23:11
[2018-10-18] MEDS ORDERED: LORazepam 0.5mg tab ORAL PRN (23:15)
[2018-10-19] VITALS: BP 107/61
[2018-10-19 04:00] VITALS: BP 105/66
[2018-10-19] MEDS: NovoLOG Insulin Flexpen SUBQ SCH ×5 (05:48→23:16)
[2018-10-19] MEDS ORDERED: Levothyroxine 125mcg tab ORAL SCH (06:30)
[2018-10-19 08:00] VITALS: BP 98/93
[2018-10-19] MEDS: levETIRAcetam 500mg/5ml Liquid GT SCH ×2 (08:38→21:27)
[2018-10-19] MEDS: Heparin 5000 units/ml inj SUBQ SCH ×2 (08:39→21:28)
[2018-10-19] MEDS: Aspirin Baby 81mg ORAL SCH (08:40)
[2018-10-19] MEDS: Depakote 125mg Sprinkles GT SCH ×2 (08:46→21:25)
[2018-10-19 12:00] VITALS: BP 126/77
[2018-10-19] MEDS ORDERED: LEVOTHYROXINE125 MCG ORAL (12:29)
--- NOTE | 2018-10-19 12:31 | Pulmonology Progress Note ---
Assessment/Plan Problems: (1) Hypotension (2) Peripheral arterial disease (3) Seizure disorder (4) Hypothyroidism (5) Trisomy 21, Down syndrome Assessment/Plan bp better heart rate better increase the dose of synthroid all noted cardiology consult appreciated echo reviewed no seizures witnessed check TSH in a few weeks Subjective ROS Limited/Unobtainable: No Constitutional: Reports: no symptoms HEENT: Repors: no symptoms Allergies: Coded Allergies: No Known Allergies (Unverified , 10/16/18) Objective Last 24 Hour Vital Signs Date Time Temp Pulse Resp B/P (MAP) Pulse Ox O2 Delivery O2 Flow Rate FiO2 10/19/18 11:07 72 18 Room Air 21 10/19/18 09:00 Room Air 10/19/18 08:00 86 10/19/18 08:00 97.7 91 16 98/93 (95) 94 10/19/18 04:00 97.1 71 18 105/66 (79) 94 10/19/18 04:00 70 10/19/18 00:00 62 10/19/18 00:00 97.6 65 18 107/61 (76) 93 10/18/18 21:21 69 18 Room Air 21 10/18/18 21:00 Room Air 10/18/18 20:00 97.7 74 18 104/68 (80) 92 10/18/18 20:00 74 10/18/18 16:00 97.0 85 19 114/63 (80) 96 10/18/18 16:00 59 Intake and Output 10/18/18 10/19/18 19:00 07:00 Intake Total 780 ml Balance 780 ml Intake Free Water 330 ml Tube Feeding 450 ml # Voids 2 2 General Appearance: WD/WN HEENT: normocephalic Respiratory/Chest: chest wall non-tender, lungs clear Breasts: no masses Cardiovascular: normal rate Abdomen: normal bowel sounds, soft, non tender Extremities: no cyanosis Neurologic/Psychiatric: online education manager II-XII grossly normal Microbiology Date/Time Source Procedure Growth Status 10/17/18 06:00 Nasal Nares MRSA Culture - Final Staphylococcus Aureus - Mrsa Complete 10/17/18 06:00 Rectum VRE Culture - Final Enterococcus Faecium - Vre Complete 10/17/18 06:00 Rectum - Final NO CARBAPENEM-RESISTANT ENTEROBACTERI... Complete Laboratory Tests 10/19/18 07:00: Troponin I 0.005 Current Medications Medications (Trade) Dose Ordered Sig/Katy Route PRN Reason Start Time Stop Time Status Last Admin Dose Admin Acetaminophen (Tylenol) 650 mg Q4H PRN ORAL FEVER 10/17/18 07:00 11/16/18 06:59 Albuterol/ Ipratropium (Albuterol/ Ipratropium) 3 ml Q4H PRN HHN Shortness of Breath 10/17/18 07:00 10/22/18 06:59 Aspirin (ASA) 162 mg DAILY ORAL 10/17/18 09:00 11/16/18 08:59 10/19/18 08:40 Dextrose (Dextrose 50%) 25 ml Q30M PRN IV Hypoglycemia 10/17/18 11:15 11/16/18 11:14 Dextrose (Dextrose 50%) 50 ml Q30M PRN IV Hypoglycemia 10/17/18 11:15 11/16/18 11:14 Divalproex Sodium (Depakote Sprinkles) 500 mg Q12HR GT 10/17/18 21:00 11/16/18 20:59 10/19/18 08:46 Heparin Sodium (Porcine) (Heparin 5000 units/ml) 5,000 units EVERY 12 HOURS SUBQ 10/17/18 09:00 11/16/18 08:59 10/19/18 08:39 Insulin Aspart (NovoLOG) Q6HR SUBQ 10/17/18 12:00 11/16/18 11:59 10/19/18 05:48 Levetiracetam (Keppra) 750 mg Q12HR GT 10/17/18 21:00 11/16/18 20:59 10/19/18 08:38 Levothyroxine Sodium (Synthroid) 125 mcg DAILY@0630 ORAL 10/19/18 06:30 11/17/18 06:29 10/19/18 06:00 Lorazepam (Ativan) 1 mg Q6H PRN ORAL For Anxiety 10/18/18 23:15 10/25/18 23:14 Elayne Allred MD Oct 19, 2018 12:31
--- NOTE | 2018-10-19 15:38 | General Progress Note ---
Assessment/Plan Problem List: (1) Trisomy 21, Down syndrome ICD Codes: Q90.9 - Down syndrome, unspecified SNOMED: 91070032 (2) Seizure disorder ICD Codes: G40.909 - Epilepsy, unspecified, not intractable, without status epilepticus SNOMED: 534790410 Assessment/Plan con tdepakote cont ativan Subjective Neurologic/Psychiatric: Reports: anxiety, depressed, emotional problems Allergies: Coded Allergies: No Known Allergies (Unverified , 10/16/18) Objective Last 24 Hour Vital Signs Date Time Temp Pulse Resp B/P (MAP) Pulse Ox O2 Delivery O2 Flow Rate FiO2 10/19/18 11:07 72 18 Room Air 21 10/19/18 09:00 Room Air 10/19/18 08:00 86 10/19/18 08:00 97.7 91 16 98/93 (95) 94 10/19/18 04:00 97.1 71 18 105/66 (79) 94 10/19/18 04:00 70 10/19/18 00:00 62 10/19/18 00:00 97.6 65 18 107/61 (76) 93 10/18/18 21:21 69 18 Room Air 21 10/18/18 21:00 Room Air 10/18/18 20:00 97.7 74 18 104/68 (80) 92 10/18/18 20:00 74 10/18/18 16:00 97.0 85 19 114/63 (80) 96 10/18/18 16:00 59 Intake and Output 10/18/18 10/19/18 19:00 07:00 Intake Total 780 ml Balance 780 ml Intake Free Water 330 ml Tube Feeding 450 ml # Voids 2 2 Laboratory Tests 10/19/18 07:00: Troponin I 0.005 Height (Feet): 5 Height (Inches): 3.00 Weight (Pounds): 128 General Appearance: alert, confused Neurologic: depressed affect José Antonio Wilde MD Oct 19, 2018 15:38
[2018-10-19 16:00] VITALS: BP 121/69
--- NOTE | 2018-10-19 19:33 | Cardiology Progress Note ---
Assessment/Plan Assessment/Plan 1. Right bundle-branch conduction defect. 2. Sinus bradycardia. 3. Severely contracted lower extremities. 4. Down syndrome. 5. History of sacral decubitus ulcers. noted synthorid dose increase tele sinus rate better no new labs Subjective ROS Limited/Unobtainable: Yes Objective Last 24 Hour Vital Signs Date Time Temp Pulse Resp B/P (MAP) Pulse Ox O2 Delivery O2 Flow Rate FiO2 10/19/18 16:00 98.0 79 16 121/69 (86) 92 10/19/18 12:00 98.0 79 16 126/77 (93) 93 10/19/18 11:50 78 10/19/18 11:07 72 18 Room Air 21 10/19/18 09:00 Room Air 10/19/18 08:00 86 10/19/18 08:00 97.7 91 16 98/93 (95) 94 10/19/18 04:00 97.1 71 18 105/66 (79) 94 10/19/18 04:00 70 10/19/18 00:00 62 10/19/18 00:00 97.6 65 18 107/61 (76) 93 10/18/18 21:21 69 18 Room Air 21 10/18/18 21:00 Room Air 10/18/18 20:00 97.7 74 18 104/68 (80) 92 10/18/18 20:00 74 General Appearance: no apparent distress, other - sleeping Intake and Output 10/18/18 10/19/18 18:59 06:59 Intake Total 780 ml Balance 780 ml Intake Free Water 330 ml Tube Feeding 450 ml # Voids 4 2 Laboratory Tests Test 10/19/18 07:00 Troponin I 0.005 ng/mL (0.000-0.056) Microbiology Date/Time Source Procedure Growth Status 10/17/18 06:00 Nasal Nares MRSA Culture - Final Staphylococcus Aureus - Mrsa Complete 10/17/18 06:00 Rectum VRE Culture - Final Enterococcus Faecium - Vre Complete 10/17/18 06:00 Rectum - Final NO CARBAPENEM-RESISTANT ENTEROBACTERI... Complete Josue Pantoja MD Oct 19, 2018 19:33
[2018-10-19] MEDS ORDERED: LORazepam 0.5mg tab ORAL PRN (22:00)
[2018-10-19] MEDS ORDERED: Albuterol/Ipratropium 3ml neb HHN PRN (22:30)
[2018-10-20] VITALS: BP 136/76
[2018-10-20 00:31] VITALS: BP 109/67
[2018-10-20 04:00] VITALS: BP 106/68
[2018-10-20] MEDS: NovoLOG Insulin Flexpen SUBQ SCH ×2 (06:00→11:33)
[2018-10-20] MEDS ORDERED: Levothyroxine 125mcg tab ORAL SCH (06:30)
[2018-10-20 08:00] VITALS: BP 114/82
[2018-10-20] MEDS ORDERED: Heparin 5000 units/ml inj SUBQ SCH (09:00)
[2018-10-20] MEDS ORDERED: Depakote 125mg Sprinkles GT SCH (09:00)
[2018-10-20] MEDS ORDERED: levETIRAcetam 500mg/5ml Liquid GT SCH (09:00)
[2018-10-20] MEDS ORDERED: Aspirin Baby 81mg ORAL SCH (09:00)
[2018-10-20] MEDS ORDERED: Sterile Water Irrig 1000ml IRRIG ONE (10:29)
[2018-10-20 12:00] VITALS: BP 95/44
[2018-10-20 13:35] VITALS: BP 100/58
--- NOTE | 2018-10-20 23:40 | General Progress Note ---
Assessment/Plan Problem List: (1) Trisomy 21, Down syndrome ICD Codes: Q90.9 - Down syndrome, unspecified SNOMED: 97329097 (2) Seizure disorder ICD Codes: G40.909 - Epilepsy, unspecified, not intractable, without status epilepticus SNOMED: 646731285 Assessment/Plan con tdepakote cont ativan Subjective Date patient seen: Oct 20, 2018 Neurologic/Psychiatric: Reports: anxiety, depressed, emotional problems Allergies: Coded Allergies: No Known Allergies (Unverified , 10/16/18) Objective Last 24 Hour Vital Signs Date Time Temp Pulse Resp B/P (MAP) Pulse Ox O2 Delivery O2 Flow Rate FiO2 10/20/18 13:35 97.2 77 20 100/58 (72) 93 10/20/18 12:00 97.6 51 20 95/44 (61) 97 10/20/18 09:00 Room Air 10/20/18 08:00 97.5 76 20 114/82 (93) 98 10/20/18 05:00 Nasal Cannula 2.0 10/20/18 04:00 98.9 70 20 106/68 (81) 96 10/20/18 00:31 99.4 85 20 109/67 (81) 91 10/20/18 00:00 98.5 72 20 136/76 (96) 94 Intake and Output 10/19/18 10/20/18 18:59 06:59 Intake Total 515 ml Balance 515 ml Intake Free Water 200 ml Tube Feeding 315 ml # Voids 1 1 Height (Feet): 5 Height (Inches): 3.00 Weight (Pounds): 128 General Appearance: alert, confused José Antonio Wilde MD Oct 20, 2018 23:40
--- NOTE | 2018-10-22 08:43 | Discharge Summary ---
Discharge Summary Discharge Summary _ DATE OF ADMISSION: 10/17/2018 DATE OF DISCHARGE: 10/20/2018 DISCHARGED BY: Dr. Allred REASON FOR ADMISSION: 58 years old fe male with history of trisomy 21, dysphagia , feeding by G-tube, seizure disorder, hypothyroidism, bedbound, residential resident, was brought by paramedics from [facility] for cardiac evaluation. Patient with history of peripheral arterial disease. No reported chest pain or shortness of breath. No fever , no chills. Patient by herself was unable to provide any history. Upon evaluation patient was hypotensive with blood pressure 91/56. Heart rate was 56. Distal pulse in both extremities were present. Troponin negative , EKG revealed sinus rhythm, no acute ischemic changes. Chest x-ray revealed no acute cardiopulmonary pathology. Laboratory workup revealed no leukocytosis, stable hemoglobin hematocrit. Patient initially was hypotensive but responded to IV hydration. Patient admitted for further management. CONSULTANTS: box gluer Dr. Pantoja psychiatrist [facility]: Patient initially admitted to telemetry floor and started on gentle IV hydration. Cardiology consult was requested. Venous duplex of left lower extremity was of limited value due to contracted lower extremity ; no evidence of common femoral or downstream femoral venous thrombosis was demonstrated. Arterial duplex of left lower extremity was limited due to severe contraction , but showed no evidence of lower extremity arterial insufficiency to the level of the mid superficial femoral artery. Distal disease was not excludable. Antiplatelet therapy with aspirin continued. Echocardiogram revealed preserved ejection fraction 55-60%. No evidence of left ventricular hypertrophy. No evidence of wall motion abnormality. Right ventricular systolic pressure of 10. TSH elevated with low T3 . Dose of Synthroid was increased. Seizure precautions were maintained. No evidence of seizure activity while in the hospital. Keppra and Depakote were continued. Blood sugar was managed with sliding scale of insulin. DVT prophylaxis provided. Strict aspiration precautions were maintained. Patient was able to tolerate tube feeding. Supportive care provided. Bowel regimen instituted Bradycardia was mild and resolved with IV hydration. Blood pressure stabilized with IV hydration. Patient stabilized and was ready for transfer back to facility for continuation of care. FINAL DIAGNOSES: Hypotension Peripheral arterial disease Right bundle branch conduction defect Sinus bradycardia -resolved Hypothyroidism Seizure disorder Trisomy 21/Down syndrome DISCHARGE MEDICATION See Medication Reconciliation list. DISCHARGE INSTRUCTIONS: [facility] Follow up with medical doctor at the facility. I have been assigned to dictate discharge summary for this account. I was not involved in the patient's management. Carla Jj NP Oct 22, 2018 08:43
== END 2018-10-20 15:45 | DRG 315 ==
LOC: EDBD 19:24 → EMR 22:07 → 2E 10-17 02:53 → EDBEDREQ 10-17 06:01 → 4E 10-19 22:06
DX: I95.9 Hypotension, unspecified (principal); I45.89 Other specified conduction disorders; Z43.1 Encounter for attention to gastrostomy; I73.9 Peripheral vascular disease, unspecified; R00.1 Bradycardia, unspecified; G40.909 Epilepsy, unspecified, not intractable, without status epilepticus; Q90.9 Down syndrome, unspecified; Z74.01 Bed confinement status; E03.9 Hypothyroidism, unspecified; I99.8 Other disorder of circulatory system; L89.159 Pressure ulcer of sacral region, unspecified stage; M62.462 Contracture of muscle, left lower leg; M62.461 Contracture of muscle, right lower leg
CPT/HCPCS: 36415; 71045; 80053; 80061; 82550; 82553; 82962; 83880; 84439; 84443; 84481; 84484; 85025; 85610; 85730; 86140; 87081; 93005; 93306; 93926; 93971; 94664; 96360; 96361; 99291; J1815

== ENCOUNTER 2018-11-09 18:46 | Inpatient (IN) | payer MEDICARE, OTHER ==
[~2018-11-09] VITALS: Ht 162.6 cm; Wt 58.7 kg
[~2018-11-09 18:46] MED LIST: ACETAMINOPHEN325 M1 GT; ATIVAN0.5 MG ORAL; CALCIUM 500 +1 EAC3 PO; DEPAKOTE SPRIN125 M1 GT; DEPAKOTE SPRIN125 MG PO; DOCUSATE SODIU100 MG GT; GUAIFENESIN-CO118 M1 ORAL; KEPPRA750 MG GT; LEVOTHYROXINE125 MCG ORAL; LEVOTHYROXINE75 MCG GT; MILK OF MA400 MG/51 ORAL; MIRALAX17 G2 ORAL; MULTIVITAMINS1 EAC8 ORAL; VITAMIN C500 M1 GT; VITAMIN D400 INTLU GT
[2018-11-09 19:00] VITALS: BP 110/87
[2018-11-09] MEDS ORDERED: Albuterol ud Inhalation HHN ONE (19:15)
[2018-11-09] MEDS ORDERED: Ipratropium 0.02% Inh Soln 2.5ml UD HHN ONE (19:15)
[2018-11-09] MEDS ORDERED: Solu-MEDROL 125mg Inj IVP ONE (19:15)
[2018-11-09 19:33] LABS: BASOPHILS % (AUTO) 0.9 % (0.0-2.0); EOSINOPHILS % (AUTO) 0.8 % (0.0-3.0); HEMATOCRIT 45.1 % (37.0-47.0); HEMOGLOBIN 15.1 G/DL (12.0-16.0); LYMPHOCYTES % (AUTO) 28.3 % (20.0-45.0); MEAN CORPUSCULAR VOLUME 103 FL (80-99); MONOCYTES % (AUTO) 9.2 % (1.0-10.0); NEUTROPHILS % (AUTO) 60.8 % (45.0-75.0); PLATELET COUNT 219 K/UL (150-450); RED BLOOD COUNT 4.39 M/UL (4.20-5.40); RED CELL DISTRIBUTION WIDTH 13.6 % (11.6-14.8); WHITE BLOOD COUNT 11.6 K/UL (4.8-10.8)
[2018-11-09 19:34] LABS: ANION GAP 2 mmol/L (5-15); BLOOD UREA NITROGEN 11 mg/dL (7-18); CALCIUM 8.7 MG/DL (8.5-10.1); CARBON DIOXIDE 32 MMOL/L (21-32); CHLORIDE 105 MMOL/L (98-107); CREATININE 0.5 MG/DL (0.55-1.30); POTASSIUM 4.2 MMOL/L (3.5-5.1); SODIUM 139 MMOL/L (136-145)
[2018-11-09 19:38] LABS: ALANINE AMINOTRANSFERASE 20 U/L (12-78); ALBUMIN 2.2 G/DL (3.4-5.0); ALBUMIN/GLOBULIN RATIO 0.5 (1.0-2.7); ALKALINE PHOSPHATASE 60 U/L (46-116); ASPARTATE AMINO TRANSFERASE 19 U/L (15-37); BILIRUBIN,TOTAL 0.2 MG/DL (0.2-1.0); CREATINE KINASE 45 U/L (26-308)
--- NOTE | 2018-11-09 20:13 | Diagnostic Imaging Report ---
EXAM: XR Chest, 1 View CLINICAL HISTORY: PAIN TECHNIQUE: Frontal view of the chest. COMPARISON: 10/17/2018 FINDINGS: Lungs: Nonspecific bilateral interstitial prominence can be seen in the setting of mild interstitial edema or chronic interstitial lung disease. Hypoventilatory lungs. Pleural space: Unremarkable. No pneumothorax. Heart: Stable cardiomediastinal silhouette. Mediastinum: See above. Bones/joints: No acute osseous abnormality. IMPRESSION: Nonspecific bilateral interstitial prominence can be seen in the setting of mild interstitial edema or chronic interstitial lung disease.
[2018-11-09 20:41] LABS: APPEARANCE,URINE SLIGHTLY CLOUDY; BILIRUBIN, URINE NEGATIVE (NEGATIVE); COLOR,URINE PALE YELLOW; GLUCOSE, URINE (UA) NEGATIVE (NEGATIVE); KETONES,URINE NEGATIVE (NEGATIVE); LEUKOCYTE ESTERASE ,URINE 1+ (NEGATIVE); NITRITE,URINE NEGATIVE (NEGATIVE); PH,URINE 7 (4.5-8.0); PROTEIN,URINE NEGATIVE (NEGATIVE); UROBILINOGEN,URINE NORMAL MG/DL (0.0-1.0)
[2018-11-09] MEDS ORDERED: Albuterol/Ipratropium 3ml neb HHN PRN (21:00)
[2018-11-09] MEDS ORDERED: Morphine Sulfate 4mg/ml Inj (IV/IM USE ONLY) IVP PRN (21:00)
[2018-11-09] MEDS ORDERED: LORazepam Inj 2mg/ml 1ml IV PRN (21:00)
[2018-11-09] MEDS ORDERED: Dextrose 50% 25ml Syringe IV PRN (21:00)
[2018-11-09] MEDS ORDERED: Miralax 17gm pkt ORAL PRN (21:00)
[2018-11-09] MEDS ORDERED: Miralax 17gm pkt GT PRN (21:15)
[2018-11-09] MEDS ORDERED: Acetaminophen 650mg/20.3ml GT PRN (21:15)
[2018-11-09] MEDS ORDERED: LEVOTHYROXINE125 MCG ORAL (21:25)
[2018-11-09] MEDS ORDERED: KEPPRA100 MG/1 M IV (21:25)
[2018-11-09] MEDS ORDERED: MILK OF MA400 MG/51 ORAL (21:25)
[2018-11-09] MEDS ORDERED: TYLENOL325 M1 PO (21:25)
[2018-11-09] MEDS ORDERED: ATIVAN1 MG ORAL (21:25)
[2018-11-09 21:29] VITALS: BP 111/85
--- NOTE | 2018-11-09 22:29 | Emergency Room Report ---
History of Present Illness General Chief Complaint: Upper Respiratory Illness Source: Medical Record Present Illness HPI 58-year-old female presents ED for evaluation. Referred to ED for reported cough and congestion for several days. Coming from [facility]. Chest x-ray done at [facility] which showed pneumonia. Patient afebrile. No signs of distress. No reported chest pain or shortness of breath. Patient is nonverbal at baseline. No other aggravating relieving factors. No other associated symptoms Allergies: Coded Allergies: No Known Allergies (Unverified , 10/16/18) Patient History Past Medical History: seizures, other - MR Past Surgical History: none Pertinent Family History: none Social History: Denies: smoking, alcohol use, drug use Now: No Immunizations: UTD Reviewed Nursing Documentation: PMH: Agreed; PSxH: Agreed Nursing Documentation-PMH Past Medical History: No History, Except For Hx Diabetes: No - Hypothyroid Hx Seizures: Yes Review of Systems All Other Systems: limited Physical Exam Vital Signs Date Time Temp Pulse Resp B/P (MAP) Pulse Ox O2 Delivery O2 Flow Rate FiO2 11/09/18 18:48 98.6 79 16 90/55 94 Nasal Cannula 2.0 11/09/18 19:00 99 Sp02 EP Interpretation: reviewed, normal General Appearance: no apparent distress, alert, non-toxic, other - nonverbal Head: normocephalic, atraumatic Eyes: bilateral eye normal inspection, bilateral eye PERRL ENT: hearing grossly normal, normal pharynx, no angioedema, normal voice Neck: full range of motion, supple/symm/no masses Respiratory: chest non-tender, crackles, speaking full sentences, wheezing Cardiovascular #1: regular rate, rhythm, no edema Cardiovascular #2: 2+ carotid (R), 2+ carotid (L), 2+ radial (R), 2+ radial (L) , 2+ dorsalis pedis (R), 2+ dorsalis pedis (L) Gastrointestinal: normal bowel sounds, non tender, soft, non-distended, no guarding, no rebound Rectal: deferred Genitourinary: normal inspection, no CVA tenderness Musculoskeletal: back normal, gait/station normal, normal range of motion, non- tender Neurologic: responsive, motor strength/tone normal, sensory intact, speech normal, other - nonverbal Psychiatric: other - nonverbal Reflexes: 3+ bicep (R), 3+ bicep (L), 3+ tricep (R), 3+ tricep (L), 3+ knee (R) , 3+ knee (L) Skin: normal color, no rash, warm/dry, well hydrated Lymphatic: no adenopathy Medical Decision Making Diagnostic Impression: Primary Impression: Pneumonia Qualified Codes: J18.9 - Pneumonia, unspecified organism Additional Impression: Trisomy 21, Down syndrome ER Course Hospital Course 58-year-old female presents to ED complaining of cough, congestion Differential diagnoses include: URI, bronchitis, asthma/COPD, pneumonia Clinical course Patient placed on stretcher. After initial history, physical exam reveals a female in no acute distress. Bilateral TM unremarkable. No pharyngeal erythema. No tonsillar exudates. No lymphadenopathy. lungs wheezing I ordered labs, IV fluids, nebs, solumedrol, chest x-ray. Labs reviewed-leukocytosis noted, hemoglobin/hematocrit stable, electrolytes okay, lactic ok EKG - NSR, no acute ischemic changes interpreted by me Chest x-ray shows bilateral intersitial congestion Antibiotics given. Patient will be admitted to Dr. Allred Diagnosis - pneumonia, trisomy admitted to floor in serious condition Labs Test 11/09/18 19:15 11/09/18 20:00 White Blood Count 11.6 K/UL (4.8-10.8) Red Blood Count 4.39 M/UL (4.20-5.40) Hemoglobin 15.1 G/DL (12.0-16.0) Hematocrit 45.1 % (37.0-47.0) Mean Corpuscular Volume 103 FL (80-99) Mean Corpuscular Hemoglobin 34.3 PG (27.0-31.0) Mean Corpuscular Hemoglobin Concent 33.4 G/DL (32.0-36.0) Red Cell Distribution Width 13.6 % (11.6-14.8) Platelet Count 219 K/UL (150-450) Mean Platelet Volume 7.4 FL (6.5-10.1) Neutrophils (%) (Auto) 60.8 % (45.0-75.0) Lymphocytes (%) (Auto) 28.3 % (20.0-45.0) Monocytes (%) (Auto) 9.2 % (1.0-10.0) Eosinophils (%) (Auto) 0.8 % (0.0-3.0) Basophils (%) (Auto) 0.9 % (0.0-2.0) Sodium Level 139 MMOL/L (136-145) Potassium Level 4.2 MMOL/L (3.5-5.1) Chloride Level 105 MMOL/L (98-107) Carbon Dioxide Level 32 MMOL/L (21-32) Anion Gap 2 mmol/L (5-15) Blood Urea Nitrogen 11 mg/dL (7-18) Creatinine 0.5 MG/DL (0.55-1.30) Estimat Glomerular Filtration Rate > 60 mL/min (>60) Glucose Level 102 MG/DL (74-106) Lactic Acid Level 1.10 mmol/L (0.4-2.0) Calcium Level 8.7 MG/DL (8.5-10.1) Total Bilirubin 0.2 MG/DL (0.2-1.0) Aspartate Amino Transf (AST/SGOT) 19 U/L (15-37) Alanine Aminotransferase (ALT/SGPT) 20 U/L (12-78) Alkaline Phosphatase 60 U/L (46-116) Total Creatine Kinase 45 U/L (26-308) Troponin I 0.007 ng/mL (0.000-0.056) Total Protein 7.0 G/DL (6.4-8.2) Albumin 2.2 G/DL (3.4-5.0) Globulin 4.8 g/dL Albumin/Globulin Ratio 0.5 (1.0-2.7) Urine Color Pale yellow Urine Appearance Slightly cloudy Urine pH 7 (4.5-8.0) Urine Specific [place] 1.005 (1.005-1.035) Urine Protein Negative (NEGATIVE) Urine Glucose (UA) Negative (NEGATIVE) Urine Ketones Negative (NEGATIVE) Urine Blood Negative (NEGATIVE) Urine Nitrite Negative (NEGATIVE) Urine Bilirubin Negative (NEGATIVE) Urine Urobilinogen Normal MG/DL (0.0-1.0) Urine Leukocyte Esterase 1+ (NEGATIVE) Urine RBC 0-2 /HPF (0 - 2) Urine WBC 2-4 /HPF (0 - 2) Urine Squamous Epithelial Cells Few /LPF (NONE/OCC) Urine Bacteria Few /HPF (NONE) EKG Diagnostic Results Rate: normal Rhythm: NSR ST Segments: no acute changes ASA given to the pt in ED: No Rhythm Strip Diag. Results EP Interpretation: yes Rhythm: NSR, no PVC's, no ectopy Chest X-Ray Diagnostic Results Chest X-Ray Diagnostic Results : Chest X-Ray Ordered: Yes # of Views/Limited/Complete: 1 View Indication: Shortness of Breath EP Interpretation: Yes Interpretation: no effusion, no pneumothorax, other - bilateral interstitial congestion Impression: Other Electronically Signed by: Electronically signed by Jt Campbell MD Last Vital Signs Date Time Temp Pulse Resp B/P (MAP) Pulse Ox O2 Delivery O2 Flow Rate FiO2 11/09/18 21:50 98.6 85 16 111/85 94 Nasal Cannula 2.0 21 Status: improved Disposition: ADMITTED INPATIENT Condition: Serious Referrals: NON PHYSICIAN (PCP) Jt Campbell MD Nov 09, 2018 22:29
[2018-11-09] MEDS ORDERED: Vancomycin 1 GM in D5W 275 ML IV SCH (23:00)
[2018-11-09] MEDS: Heparin 5000 units/ml inj SUBQ SCH (23:20)
[2018-11-10] MEDS ORDERED: Vancomycin 1250mg/D5W 275ml IVPB ONE
[2018-11-10] MEDS: Cefepime HCl 2 GM in D5W 110 ML IV SCH ×3 (00:34→21:00)
[2018-11-10 04:00] VITALS: BP 115/74
[2018-11-10 08:00] VITALS: BP 104/47
[2018-11-10] MEDS: Depakote 125mg Sprinkles GT SCH (08:39)
[2018-11-10] MEDS: Heparin 5000 units/ml inj SUBQ SCH ×2 (08:47→21:04)
[2018-11-10 10:32] LABS: BASOPHILS % (AUTO) 0.7 % (0.0-2.0); EOSINOPHILS % (AUTO) 0.1 % (0.0-3.0); HEMATOCRIT 44.1 % (37.0-47.0); HEMOGLOBIN 14.7 G/DL (12.0-16.0); LYMPHOCYTES % (AUTO) 23.8 % (20.0-45.0); MEAN CORPUSCULAR VOLUME 104 FL (80-99); MONOCYTES % (AUTO) 2.3 % (1.0-10.0); NEUTROPHILS % (AUTO) 73.2 % (45.0-75.0); PLATELET COUNT 218 K/UL (150-450); RED BLOOD COUNT 4.25 M/UL (4.20-5.40); RED CELL DISTRIBUTION WIDTH 13.5 % (11.6-14.8); WHITE BLOOD COUNT 8.7 K/UL (4.8-10.8)
[2018-11-10 10:38] LABS: ALBUMIN 2.3 G/DL (3.4-5.0); ANION GAP 6 mmol/L (5-15); BLOOD UREA NITROGEN 10 mg/dL (7-18); CALCIUM 9.6 MG/DL (8.5-10.1); CARBON DIOXIDE 30 MMOL/L (21-32); CHLORIDE 103 MMOL/L (98-107); CREATININE 0.6 MG/DL (0.55-1.30); PHOSPHORUS 3.5 MG/DL (2.5-4.9); POTASSIUM 4.6 MMOL/L (3.5-5.1); SODIUM 139 MMOL/L (136-145)
[2018-11-10] MEDS ORDERED: NovoLOG Insulin Flexpen SUBQ SCH (11:30)
[2018-11-10] MEDS: Vancomycin 750mg/NS 275ml IVPB SCH ×4 (11:42→23:58)
[2018-11-10 12:00] VITALS: BP 120/65
[2018-11-10] MEDS ORDERED: Tubing IV Secondary IV ONE (14:05)
--- NOTE | 2018-11-10 15:15 | History and Physical ---
History of Present Illness General Date patient seen: Nov 10, 2018 Time patient seen: 10:00 Reason for Hospitalization: Upper Respiratory Illness Present Illness HPI 58 years old female with past medical history of seizure disorder, hypothyroidism, G tube, Down syndrome, resident of shelter facility, presented to the emergency department for evaluation of cough and congestion, lasting for several days. Chest x-ray at the facility revealed pneumonia. Upon evaluation patient was afebrile, blood pressure was on the low side 90/55 ; patient required supplemental oxygen, and on 2 L of oxygen saturated 94%. Laboratory workup revealed leukocytosis, stable hemoglobin and hematocrit , stable renal parameters and electrolytes. Troponin negative, ECG revealed NSR, no acute ischemic changes. Lactic acid 1.1 . Urinalysis revealed no evidence of UTI. Chest x-ray showed nonspecific bilateral interstitial prominence , can be seen in the setting of mild interstitial edema versus chronic interstitial lung disease. Patient was started on empiric antibiotic and admitted for further management. Allergies: Coded Allergies: No Known Allergies (Unverified , 10/16/18) Medication History Scheduled Ascorbic Acid* (Vitamin C*), 500 MG GT DAILY, (Reported) Docusate Sodium* (Docusate Sodium*), 100 MG GT TWICE A DAY, (Reported) Levetiracetam (Keppra), 750 MG GT TWICE A DAY, (Reported) Levothyroxine Sodium* (Levothyroxine Sodium*), 75 MCG GT DAILY, (Reported) Levothyroxine Sodium* (Levothyroxine Sodium*), 125 MCG ORAL DAILY@0630 Levothyroxine Sodium* (Levothyroxine Sodium*), 125 MCG ORAL DAILY, (Reported) Lorazepam* (Ativan*), 0.5 MG ORAL THREE TIMES A DAY, (Reported) Lorazepam* (Ativan*), 1 MG ORAL BEDTIME, (Reported) Magnesium Hydroxide* (Milk Of Magnesia*), 30 ML ORAL DAILY, (Reported) Magnesium Hydroxide* (Milk Of Magnesia*), 30 ML ORAL DAILY, (Reported) Multivitamin With Minerals (Multivitamins With Minerals*), 1 TAB ORAL DAILY, ( Reported) Polyethylene Glycol 3350* (Miralax*), 17 GM ORAL DAILY, (Reported) Vitamin D (Vitamin D3), 100 UNITS GT DAILY, (Reported) Scheduled PRN Acetaminophen* (Acetaminophen 325MG Tablet*), 650 MG GT Q4H PRN for Mild Pain ( Pain Scale 1-3), (Reported) Guaifenesin/Codeine Phos* (Robitussin Ac*), 1 TSP ORAL Q4H PRN for For Cough, ( Reported) Miscellaneous Medications Acetaminophen (Tylenol), 325 MG PO, (Reported) Calcium Carbonate/Vitamin D3 (Calcium 500 + D Tablet), 1 EACH PO, (Reported) Divalproex Sodium (Depakote Sprinkle), 500 MG PO, (Reported) Levetiracetam (Keppra), 500 MG IV, (Reported) Patient History History Provided By: Medical Record Healthcare decision maker Resuscitation status Full Code Advanced Directive on File Past Medical/Surgical History Past Medical/Surgical History: (1) Hypothyroidism (2) Seizure disorder (3) Trisomy 21, Down syndrome Review of Systems ROS Narrative unable to obtain ROS due to patient mental status Physical Exam General Appearance: no apparent distress, other - awake, nonverbal , bedridden Lines, tubes and drains: peripheral HEENT: no JVD, other - Down syndrome facial features Neck: non-tender, supple Respiratory/Chest: other Cardiovascular/Chest: normal rate, no JVD Abdomen: normal bowel sounds, non tender, soft, feeding tube - GT with TF Skin Exam: warm/dry Neurologic: abnormal gait - bedridden , other - nonverbal Musculoskeletal: atrophy - BLE Last 24 Hour Vital Signs Date Time Temp Pulse Resp B/P (MAP) Pulse Ox O2 Delivery O2 Flow Rate FiO2 11/10/18 12:00 97.8 94 18 120/65 (83) 90 11/10/18 09:00 Nasal Cannula 2.0 11/10/18 08:00 98.5 64 17 104/47 (66) 95 11/10/18 04:01 Nasal Cannula 2.0 11/10/18 04:00 98.5 83 19 115/74 (88) 94 11/09/18 21:50 98.6 85 16 111/85 94 Nasal Cannula 2.0 21 11/09/18 21:29 98.6 85 16 111/85 94 Nasal Cannula 2.0 11/09/18 19:30 21 11/09/18 19:28 67 22 Nasal Cannula 2.0 28 11/09/18 19:25 67 22 95 Nasal Cannula 2.0 28 11/09/18 19:00 79 16 Nasal Cannula 2.0 99 11/09/18 19:00 98.6 88 16 110/87 94 Nasal Cannula 2.0 11/09/18 18:48 98.6 79 16 90/55 94 Nasal Cannula 2.0 Intake and Output 11/09/18 11/10/18 19:00 07:00 Intake Total 520 ml Balance 520 ml Intake IV Total 520 ml # Voids 3 # Bowel Movements 1 Laboratory Tests Test 11/09/18 19:15 11/09/18 20:00 11/10/18 09:45 White Blood Count 11.6 K/UL (4.8-10.8) H 8.7 K/UL (4.8-10.8) Red Blood Count 4.39 M/UL (4.20-5.40) 4.25 M/UL (4.20-5.40) Hemoglobin 15.1 G/DL (12.0-16.0) 14.7 G/DL (12.0-16.0) Hematocrit 45.1 % (37.0-47.0) 44.1 % (37.0-47.0) Mean Corpuscular Volume 103 FL (80-99) H 104 FL (80-99) H Mean Corpuscular Hemoglobin 34.3 PG (27.0-31.0) H 34.7 PG (27.0-31.0) H Mean Corpuscular Hemoglobin Concent 33.4 G/DL (32.0-36.0) 33.4 G/DL (32.0-36.0) Red Cell Distribution Width 13.6 % (11.6-14.8) 13.5 % (11.6-14.8) Platelet Count 219 K/UL (150-450) 218 K/UL (150-450) Mean Platelet Volume 7.4 FL (6.5-10.1) 7.6 FL (6.5-10.1) Neutrophils (%) (Auto) 60.8 % (45.0-75.0) 73.2 % (45.0-75.0) Lymphocytes (%) (Auto) 28.3 % (20.0-45.0) 23.8 % (20.0-45.0) Monocytes (%) (Auto) 9.2 % (1.0-10.0) 2.3 % (1.0-10.0) Eosinophils (%) (Auto) 0.8 % (0.0-3.0) 0.1 % (0.0-3.0) Basophils (%) (Auto) 0.9 % (0.0-2.0) 0.7 % (0.0-2.0) Sodium Level 139 MMOL/L (136-145) 139 MMOL/L (136-145) Potassium Level 4.2 MMOL/L (3.5-5.1) 4.6 MMOL/L (3.5-5.1) Chloride Level 105 MMOL/L (98-107) 103 MMOL/L (98-107) Carbon Dioxide Level 32 MMOL/L (21-32) 30 MMOL/L (21-32) Anion Gap 2 mmol/L (5-15) L 6 mmol/L (5-15) Blood Urea Nitrogen 11 mg/dL (7-18) 10 mg/dL (7-18) Creatinine 0.5 MG/DL (0.55-1.30) L 0.6 MG/DL (0.55-1.30) Estimat Glomerular Filtration Rate > 60 mL/min (>60) > 60 mL/min (>60) Glucose Level 102 MG/DL (74-106) 127 MG/DL (74-106) H Lactic Acid Level 1.10 mmol/L (0.4-2.0) Calcium Level 8.7 MG/DL (8.5-10.1) 9.6 MG/DL (8.5-10.1) Total Bilirubin 0.2 MG/DL (0.2-1.0) Aspartate Amino Transf (AST/SGOT) 19 U/L (15-37) Alanine Aminotransferase (ALT/SGPT) 20 U/L (12-78) Alkaline Phosphatase 60 U/L (46-116) Total Creatine Kinase 45 U/L (26-308) Troponin I 0.007 ng/mL (0.000-0.056) Total Protein 7.0 G/DL (6.4-8.2) Albumin 2.2 G/DL (3.4-5.0) L 2.3 G/DL (3.4-5.0) L Globulin 4.8 g/dL Albumin/Globulin Ratio 0.5 (1.0-2.7) L Urine Color Pale yellow Urine Appearance Slightly cloudy Urine pH 7 (4.5-8.0) Urine Specific [place] 1.005 (1.005-1.035) Urine Protein Negative (NEGATIVE) Urine Glucose (UA) Negative (NEGATIVE) Urine Ketones Negative (NEGATIVE) Urine Blood Negative (NEGATIVE) Urine Nitrite Negative (NEGATIVE) Urine Bilirubin Negative (NEGATIVE) Urine Urobilinogen Normal MG/DL (0.0-1.0) Urine Leukocyte Esterase 1+ (NEGATIVE) H Urine RBC 0-2 /HPF (0 - 2) Urine WBC 2-4 /HPF (0 - 2) Urine Squamous Epithelial Cells Few /LPF (NONE/OCC) Urine Bacteria Few /HPF (NONE) Phosphorus Level 3.5 MG/DL (2.5-4.9) Microbiology Date/Time Source Procedure Growth Status 11/09/18 20:20 Rectum Received Height (Feet): 5 Height (Inches): 4.00 Weight (Pounds): 140 Medications Current Medications Medications (Trade) Dose Ordered Sig/Katy Route PRN Reason Start Time Stop Time Status Last Admin Dose Admin Acetaminophen (Tylenol) 650 mg Q4H PRN GT FEVER (temp>100.5F) 11/09/18 21:15 12/09/18 20:59 Albuterol/ Ipratropium (Albuterol/ Ipratropium) 3 ml Q4H PRN HHN Shortness of Breath 11/09/18 21:00 11/14/18 20:59 Cefepime HCl 2 gm/ Dextrose 110 ml @ 220 mls/hr EVERY 12 HOURS IV 11/09/18 23:00 11/16/18 22:59 11/10/18 11:00 Dextrose (Dextrose 50%) 25 ml Q30M PRN IV Hypoglycemia 11/10/18 06:45 12/10/18 06:44 Dextrose (Dextrose 50%) 50 ml Q30M PRN IV Hypoglycemia 11/10/18 06:45 12/10/18 06:44 Divalproex Sodium (Depakote Sprinkles) 500 mg DAILY GT 11/10/18 09:00 12/10/18 08:59 11/10/18 08:39 Heparin Sodium (Porcine) (Heparin 5000 units/ml) 5,000 units EVERY 12 HOURS SUBQ 11/09/18 21:00 12/09/18 20:59 11/10/18 08:47 Insulin Aspart (NovoLOG) BEFORE MEALS AND HS SUBQ 11/10/18 11:30 12/10/18 11:29 11/10/18 12:58 Levothyroxine Sodium (Synthroid) 75 mcg DAILY GT 11/10/18 09:00 12/10/18 08:59 11/10/18 08:39 Lorazepam (Ativan 2mg/ml 1ml) 2 mg Q2H PRN IV For Anxiety 11/09/18 21:00 11/16/18 20:59 Morphine Sulfate (Morphine Sulfate) 4 mg Q4H PRN IVP Severe Pain (Pain Scale 7-10) 11/09/18 21:00 11/16/18 20:59 Ondansetron HCl (Zofran) 4 mg Q6H PRN IVP Nausea & Vomiting 11/09/18 21:00 12/09/18 20:59 Polyethylene Glycol (Miralax) 17 gm DAILYPRN PRN GT Constipation 11/09/18 21:15 12/09/18 20:59 Sodium Chloride 1,000 ml @ 50 mls/hr Q20H IV 11/09/18 21:00 12/09/18 20:59 11/09/18 23:18 Vancomycin HCl (Vanco rx to dose) 1 ea DAILY PRN MISC PER RX PROTOCOL 11/09/18 21:15 12/09/18 21:14 Vancomycin HCl 750 mg/Sodium Chloride 275 ml @ 183.333 mls/hr Q12HR@0000,1200 IVPB 11/10/18 12:00 11/15/18 11:59 11/10/18 11:42 Assessment/Plan Assessment/Plan ASSESSMENT Acute bronchitis Possible PNA Aspiration risk Dysphagia, G tube feeding Mentally challenged Down syndrome Seizure disorder Hypothyroidism Protein calorie malnutrition PLAN OF CARE Med Surg floor O2 titrate to keep pulse ox above 92% HHN Antitussive prn F/up with CXR on Monday Empiric antibiotics fup with cx ID consult Strict aspiration/reflux precaution G-tube feeding, monitor tolerance DVT prophylaxis Seizure precautions , continue Keppra and Depakote Continue levothyroxine ,check TSH Bowel regimen Pain management Supportive care Dietary eval re protein supplements case discussed and evaluated by supervising physician Carla Jj NP Nov 10, 2018 15:15
[2018-11-10 16:00] VITALS: BP 131/72
[2018-11-10 20:00] VITALS: BP 110/65
[2018-11-11] VITALS: BP 105/57
[2018-11-11 04:00] VITALS: BP 107/55
[2018-11-11 08:00] VITALS: BP 108/69
--- NOTE | 2018-11-11 08:15 | Pulmonology Progress Note ---
Assessment/Plan Assessment/Plan ASSESSMENT Acute bronchitis Possible PNA Aspiration risk Dysphagia, G tube feeding Mentally challenged Down syndrome Seizure disorder Hypothyroidism Protein calorie malnutrition PLAN OF CARE Med Surg floor O2 titrate to keep pulse ox above 92% HHN Antitussive prn F/up with CXR on Monday Empiric antibiotics fup with cx, sputum cx pending ID consult Strict aspiration/reflux precaution G-tube feeding, monitor tolerance DVT prophylaxis Seizure precautions , continue Keppra and Depakote Continue levothyroxine , TSH slightly low, will not change dose of Levothyroxine, very minimal change, repeat TSH in 4 wks Bowel regimen Pain management Supportive care Dietary eval re protein supplements and implements recs in POC case discussed and evaluated by supervising physician Subjective Allergies: Coded Allergies: No Known Allergies (Unverified , 10/16/18) Subjective leukocytosis resolved, afebrile, more awake and interactive Objective Last 24 Hour Vital Signs Date Time Temp Pulse Resp B/P (MAP) Pulse Ox O2 Delivery O2 Flow Rate FiO2 11/11/18 04:00 98.1 60 20 107/55 (72) 97 11/11/18 00:00 98.2 76 22 105/57 (73) 99 11/10/18 21:00 Nasal Cannula 2.0 11/10/18 20:00 97.4 73 20 110/65 (80) 95 11/10/18 16:00 98.6 71 18 131/72 (91) 96 11/10/18 12:00 97.8 94 18 120/65 (83) 90 11/10/18 09:00 Nasal Cannula 2.0 Intake and Output 11/10/18 11/11/18 19:00 07:00 Intake Total 220 ml 981.666 ml Balance 220 ml 981.666 ml Intake IV Total 50 ml 936.666 ml Tube Feeding 170 ml 45 ml # Voids 5 2 Objective General Appearance: no apparent distress, awake, speech incomprehensible , bedridden Lines, tubes and drains: peripheral HEENT: no JVD, facial features with evidence of Down syndrome Neck: non-tender, supple Respiratory/Chest: other Cardiovascular/Chest: normal rate, no JVD Abdomen: normal bowel sounds, non tender, soft, feeding tube - GT with TF Skin Exam: warm/dry Neurologic: bedridden , nonverbal Musculoskeletal: atrophy - BLE, atrophic toe nails Microbiology Date/Time Source Procedure Growth Status 11/09/18 20:03 Blood Blood Culture - Preliminary NO GROWTH AFTER 24 HOURS Resulted 11/09/18 19:47 Blood Blood Culture - Preliminary NO GROWTH AFTER 24 HOURS Resulted 11/10/18 14:44 Sputum Gram Stain - Final Resulted 11/10/18 14:44 Sputum Sputum Culture Pending Resulted 11/09/18 20:20 Rectum Received Laboratory Tests 11/10/18 09:45: White Blood Count 8.7, Red Blood Count 4.25, Hemoglobin 14.7, Hematocrit 44.1, Mean Corpuscular Volume 104H, Mean Corpuscular Hemoglobin 34.7H, Mean Corpuscular Hemoglobin Concent 33.4, Red Cell Distribution Width 13.5, Platelet Count 218, Mean Platelet Volume 7.6, Neutrophils (%) (Auto) 73.2, Lymphocytes (% ) (Auto) 23.8, Monocytes (%) (Auto) 2.3, Eosinophils (%) (Auto) 0.1, Basophils ( %) (Auto) 0.7, Sodium Level 139, Potassium Level 4.6, Chloride Level 103, Carbon Dioxide Level 30, Anion Gap 6, Blood Urea Nitrogen 10, Creatinine 0.6, Estimat Glomerular Filtration Rate > 60, Glucose Level 127H, Calcium Level 9.6, Phosphorus Level 3.5, Albumin 2.3L Current Medications Medications (Trade) Dose Ordered Sig/Katy Route PRN Reason Start Time Stop Time Status Last Admin Dose Admin Acetaminophen (Tylenol) 650 mg Q4H PRN GT FEVER (temp>100.5F) 11/09/18 21:15 12/09/18 20:59 Albuterol/ Ipratropium (Albuterol/ Ipratropium) 3 ml Q4H PRN HHN Shortness of Breath 11/09/18 21:00 11/14/18 20:59 Cefepime HCl 2 gm/ Dextrose 110 ml @ 220 mls/hr EVERY 12 HOURS IV 11/09/18 23:00 11/16/18 22:59 11/10/18 21:00 Divalproex Sodium (Depakote Sprinkles) 500 mg DAILY GT 11/10/18 09:00 12/10/18 08:59 11/10/18 08:39 Heparin Sodium (Porcine) (Heparin 5000 units/ml) 5,000 units EVERY 12 HOURS SUBQ 11/09/18 21:00 12/09/18 20:59 11/10/18 21:04 Levetiracetam (Keppra) 750 mg Q12HR ORAL 11/10/18 21:00 12/10/18 20:59 11/10/18 21:00 Levothyroxine Sodium (Synthroid) 75 mcg DAILY GT 11/10/18 09:00 12/10/18 08:59 11/10/18 08:39 Lorazepam (Ativan 2mg/ml 1ml) 2 mg Q2H PRN IV For Anxiety 11/09/18 21:00 11/16/18 20:59 Morphine Sulfate (Morphine Sulfate) 4 mg Q4H PRN IVP Severe Pain (Pain Scale 7-10) 11/09/18 21:00 11/16/18 20:59 Ondansetron HCl (Zofran) 4 mg Q6H PRN IVP Nausea & Vomiting 11/09/18 21:00 12/09/18 20:59 Polyethylene Glycol (Miralax) 17 gm DAILYPRN PRN GT Constipation 11/09/18 21:15 12/09/18 20:59 Sodium Chloride 1,000 ml @ 50 mls/hr Q20H IV 11/09/18 21:00 12/09/18 20:59 11/10/18 17:27 Vancomycin HCl (Vanco rx to dose) 1 ea DAILY PRN MISC PER RX PROTOCOL 11/09/18 21:15 12/09/18 21:14 Vancomycin HCl 750 mg/Sodium Chloride 275 ml @ 183.333 mls/hr Q12HR@0000,1200 IVPB 11/10/18 12:00 11/15/18 11:59 11/10/18 23:58 Carla Jj NP Nov 11, 2018 08:15
[2018-11-11 09:04] LABS: BASOPHILS % (AUTO) 1.4 % (0.0-2.0); EOSINOPHILS % (AUTO) 0.3 % (0.0-3.0); HEMATOCRIT 42.8 % (37.0-47.0); HEMOGLOBIN 14.1 G/DL (12.0-16.0); LYMPHOCYTES % (AUTO) 40.1 % (20.0-45.0); MEAN CORPUSCULAR VOLUME 105 FL (80-99); MONOCYTES % (AUTO) 13.1 % (1.0-10.0); NEUTROPHILS % (AUTO) 45.2 % (45.0-75.0); PLATELET COUNT 209 K/UL (150-450); RED BLOOD COUNT 4.07 M/UL (4.20-5.40); RED CELL DISTRIBUTION WIDTH 13.8 % (11.6-14.8); WHITE BLOOD COUNT 8.1 K/UL (4.8-10.8)
[2018-11-11] MEDS: Depakote 125mg Sprinkles GT SCH (09:10)
[2018-11-11] MEDS: Heparin 5000 units/ml inj SUBQ SCH ×2 (09:12→21:01)
[2018-11-11] MEDS: Cefepime HCl 2 GM in D5W 110 ML IV SCH ×2 (09:13→21:01)
[2018-11-11 09:17] LABS: ANION GAP 3 mmol/L (5-15); BLOOD UREA NITROGEN 10 mg/dL (7-18); CALCIUM 8.8 MG/DL (8.5-10.1); CARBON DIOXIDE 32 MMOL/L (21-32); CHLORIDE 108 MMOL/L (98-107); CREATININE 0.5 MG/DL (0.55-1.30); POTASSIUM 3.9 MMOL/L (3.5-5.1); SODIUM 143 MMOL/L (136-145)
[2018-11-11 12:00] VITALS: BP 108/89
--- NOTE | 2018-11-11 12:20 | Consultation ---
History of Present Illness General Date patient seen: Nov 11, 2018 Chief Complaint: Upper Respiratory Illness Present Illness HPI 58 y/o F with hx of seizure disorder, hypothyroidism, s/p PEG, Down syndrome, SNF resident presents to ED on 11/09 with cough and congestion for several days. CXR at showed PNA. Upon admission SPB 90s, WBC elevated. Dnies CP, SOB Allergies: Coded Allergies: No Known Allergies (Unverified , 10/16/18) Medication History Scheduled Ascorbic Acid* (Vitamin C*), 500 MG GT DAILY, (Reported) Docusate Sodium* (Docusate Sodium*), 100 MG GT TWICE A DAY, (Reported) Levetiracetam (Keppra), 750 MG GT TWICE A DAY, (Reported) Levothyroxine Sodium* (Levothyroxine Sodium*), 75 MCG GT DAILY, (Reported) Levothyroxine Sodium* (Levothyroxine Sodium*), 125 MCG ORAL DAILY@0630 Levothyroxine Sodium* (Levothyroxine Sodium*), 125 MCG ORAL DAILY, (Reported) Lorazepam* (Ativan*), 0.5 MG ORAL THREE TIMES A DAY, (Reported) Lorazepam* (Ativan*), 1 MG ORAL BEDTIME, (Reported) Magnesium Hydroxide* (Milk Of Magnesia*), 30 ML ORAL DAILY, (Reported) Magnesium Hydroxide* (Milk Of Magnesia*), 30 ML ORAL DAILY, (Reported) Multivitamin With Minerals (Multivitamins With Minerals*), 1 TAB ORAL DAILY, ( Reported) Polyethylene Glycol 3350* (Miralax*), 17 GM ORAL DAILY, (Reported) Vitamin D (Vitamin D3), 100 UNITS GT DAILY, (Reported) Scheduled PRN Acetaminophen* (Acetaminophen 325MG Tablet*), 650 MG GT Q4H PRN for Mild Pain ( Pain Scale 1-3), (Reported) Guaifenesin/Codeine Phos* (Robitussin Ac*), 1 TSP ORAL Q4H PRN for For Cough, ( Reported) Miscellaneous Medications Acetaminophen (Tylenol), 325 MG PO, (Reported) Calcium Carbonate/Vitamin D3 (Calcium 500 + D Tablet), 1 EACH PO, (Reported) Divalproex Sodium (Depakote Sprinkle), 500 MG PO, (Reported) Levetiracetam (Keppra), 500 MG IV, (Reported) Patient History Healthcare decision maker Resuscitation status Full Code Advanced Directive on File Patient History Narrative Pmhx: as above Shx:Denies: smoking, alcohol use, drug use Fhx: non contributory Review of Systems All Other Systems: negative except mentioned in HPI Physical Exam Physical Exam Narrative General Appearance: no apparent distress, other - awake, nonverbal , bedridden Lines, tubes and drains: peripheral HEENT: no JVD, other - Down syndrome facial features Neck: non-tender, supple Respiratory/Chest: other Cardiovascular/Chest: normal rate, no JVD Abdomen: normal bowel sounds, non tender, soft, feeding tube - GT with TF Skin Exam: warm/dry Neurologic: abnormal gait - bedridden , other - nonverbal Musculoskeletal: atrophy - BLE Last 24 Hour Vital Signs Date Time Temp Pulse Resp B/P (MAP) Pulse Ox O2 Delivery O2 Flow Rate FiO2 11/11/18 08:18 73 22 Nasal Cannula 2.0 28 11/11/18 08:00 97.1 63 20 108/69 (82) 98 11/11/18 04:00 98.1 60 20 107/55 (72) 97 11/11/18 00:00 98.2 76 22 105/57 (73) 99 11/10/18 21:00 Nasal Cannula 2.0 11/10/18 20:00 97.4 73 20 110/65 (80) 95 11/10/18 16:00 98.6 71 18 131/72 (91) 96 Intake and Output 11/10/18 11/11/18 18:59 06:59 Intake Total 220 ml 1031.666 ml Balance 220 ml 1031.666 ml IV Total 50 ml 986.666 ml Tube Feeding 170 ml 45 ml # Voids 5 2 Laboratory Tests Test 11/11/18 07:38 11/11/18 11:10 White Blood Count 8.1 K/UL (4.8-10.8) Red Blood Count 4.07 M/UL (4.20-5.40) L Hemoglobin 14.1 G/DL (12.0-16.0) Hematocrit 42.8 % (37.0-47.0) Mean Corpuscular Volume 105 FL (80-99) H Mean Corpuscular Hemoglobin 34.6 PG (27.0-31.0) H Mean Corpuscular Hemoglobin Concent 32.9 G/DL (32.0-36.0) Red Cell Distribution Width 13.8 % (11.6-14.8) Platelet Count 209 K/UL (150-450) Mean Platelet Volume 6.9 FL (6.5-10.1) Neutrophils (%) (Auto) 45.2 % (45.0-75.0) Lymphocytes (%) (Auto) 40.1 % (20.0-45.0) Monocytes (%) (Auto) 13.1 % (1.0-10.0) H Eosinophils (%) (Auto) 0.3 % (0.0-3.0) Basophils (%) (Auto) 1.4 % (0.0-2.0) Sodium Level 143 MMOL/L (136-145) Potassium Level 3.9 MMOL/L (3.5-5.1) Chloride Level 108 MMOL/L (98-107) H Carbon Dioxide Level 32 MMOL/L (21-32) Anion Gap 3 mmol/L (5-15) L Blood Urea Nitrogen 10 mg/dL (7-18) Creatinine 0.5 MG/DL (0.55-1.30) L Estimat Glomerular Filtration Rate > 60 mL/min (>60) Glucose Level 87 MG/DL (74-106) Calcium Level 8.8 MG/DL (8.5-10.1) Thyroid Stimulating Hormone (TSH) 0.349 uiU/mL (0.358-3.740) Vancomycin Level Trough Pending Microbiology Date/Time Source Procedure Growth Status 11/10/18 14:44 Sputum Gram Stain - Final Resulted 11/10/18 14:44 Sputum Sputum Culture Pending Resulted Height (Feet): 5 Height (Inches): 4.00 Weight (Pounds): 140 Medications Current Medications Medications (Trade) Dose Ordered Sig/Katy Route PRN Reason Start Time Stop Time Status Last Admin Dose Admin Acetaminophen (Tylenol) 650 mg Q4H PRN GT FEVER (temp>100.5F) 11/09/18 21:15 12/09/18 20:59 Albuterol/ Ipratropium (Albuterol/ Ipratropium) 3 ml Q4H PRN HHN Shortness of Breath 11/09/18 21:00 11/14/18 20:59 Cefepime HCl 2 gm/ Dextrose 110 ml @ 220 mls/hr EVERY 12 HOURS IV 11/09/18 23:00 11/16/18 22:59 11/11/18 09:13 Divalproex Sodium (Depakote Sprinkles) 500 mg DAILY GT 11/10/18 09:00 12/10/18 08:59 11/11/18 09:10 Heparin Sodium (Porcine) (Heparin 5000 units/ml) 5,000 units EVERY 12 HOURS SUBQ 11/09/18 21:00 12/09/18 20:59 11/11/18 09:12 Levetiracetam (Keppra) 750 mg Q12HR ORAL 11/10/18 21:00 12/10/18 20:59 11/11/18 09:10 Levothyroxine Sodium (Synthroid) 75 mcg DAILY GT 11/10/18 09:00 12/10/18 08:59 11/11/18 09:10 Lorazepam (Ativan 2mg/ml 1ml) 2 mg Q2H PRN IV For Anxiety 11/09/18 21:00 11/16/18 20:59 Morphine Sulfate (Morphine Sulfate) 4 mg Q4H PRN IVP Severe Pain (Pain Scale 7-10) 11/09/18 21:00 11/16/18 20:59 Ondansetron HCl (Zofran) 4 mg Q6H PRN IVP Nausea & Vomiting 11/09/18 21:00 12/09/18 20:59 Polyethylene Glycol (Miralax) 17 gm DAILYPRN PRN GT Constipation 11/09/18 21:15 12/09/18 20:59 Sodium Chloride 1,000 ml @ 50 mls/hr Q20H IV 11/09/18 21:00 12/09/18 20:59 11/10/18 17:27 Vancomycin HCl (Vanco rx to dose) 1 ea DAILY PRN MISC PER RX PROTOCOL 11/09/18 21:15 12/09/18 21:14 Vancomycin HCl 750 mg/Sodium Chloride 275 ml @ 183.333 mls/hr Q12HR@0000,1200 IVPB 11/10/18 12:00 11/15/18 11:59 11/10/18 23:58 Assessment/Plan Assessment/Plan Abx: IV Vancomycin 2/1- Cefepime 11/09- Assessment: Probable PNA -CXR: Nonspecific bilateral interstitial prominence can be seen in the setting of mild interstitial edema or chronic interstitial lung disease. Hypoventilatory lungs. sp cx p Mild leukocytosis, SP Afebrile Gram positive bacteremia- reaL vs contaminant seizure disorder hypothyroidism s/p PEG Down syndrome SNF resident Plan: -Continue empiric IV Vancomycin and Cefepime pending cultures -Bcx x2 -f/u cx -Monitor CBC/CMP, temperatures -influenza sc -aspiration precautions Thank you for this consultation. Will continue to follow along with you. Discussed with Suki Aguirre M.D. Nov 11, 2018 12:20
[2018-11-11] MEDS: Vancomycin 750mg/NS 275ml IVPB SCH ×2 (13:15)
[2018-11-11 16:00] VITALS: BP 106/59
[2018-11-11 20:00] VITALS: BP 108/57
[2018-11-12] VITALS: BP 105/54
[2018-11-12] MEDS: Vancomycin 750mg/NS 275ml IVPB SCH ×4 (00:18→11:36)
[2018-11-12 04:00] VITALS: BP 112/58
[2018-11-12 06:43] LABS: EOSINOPHILS % (AUTO) 1.2 % (0.0-3.0); HEMATOCRIT 39.7 % (37.0-47.0); LYMPHOCYTES % (AUTO) 37.3 % (20.0-45.0); MEAN CORPUSCULAR VOLUME 105 FL (80-99); NEUTROPHILS % (AUTO) 45.5 % (45.0-75.0); PLATELET COUNT 248 K/UL (150-450); RED BLOOD COUNT 3.79 M/UL (4.20-5.40); RED CELL DISTRIBUTION WIDTH 13.8 % (11.6-14.8); WHITE BLOOD COUNT 5.3 K/UL (4.8-10.8)
[2018-11-12 07:08] LABS: ANION GAP 5 mmol/L (5-15); BLOOD UREA NITROGEN 13 mg/dL (7-18); CALCIUM 9.1 MG/DL (8.5-10.1); CARBON DIOXIDE 29 MMOL/L (21-32); CHLORIDE 108 MMOL/L (98-107); CREATININE 0.4 MG/DL (0.55-1.30); POTASSIUM 3.6 MMOL/L (3.5-5.1); SODIUM 142 MMOL/L (136-145)
[2018-11-12 08:00] VITALS: BP 119/58
[2018-11-12] MEDS: Depakote 125mg Sprinkles GT SCH (08:10)
[2018-11-12] MEDS: Cefepime HCl 2 GM in D5W 110 ML IV SCH ×2 (08:10→22:32)
[2018-11-12] MEDS: Heparin 5000 units/ml inj SUBQ SCH ×2 (08:17→22:33)
[2018-11-12 11:55] VITALS: BP 110/67
--- NOTE | 2018-11-12 11:55 | Diagnostic Imaging Report ---
Indication: Dyspnea Comparison: 11/09/2018 A single view chest radiograph was obtained. Findings: Heart size is stable. There is patchy interstitial prominence at the lung bases probably chronic. No change compared to prior exam. Bones are osteopenic. IMPRESSION: No acute disease
--- NOTE | 2018-11-12 12:11 | Infectious Diseases Prog Note ---
Assessment/Plan Assessment/Plan Abx: IV Vancomycin 11/09- Cefepime 11/09- Assessment: Probable PNA -CXR: Nonspecific bilateral interstitial prominence can be seen in the setting of mild interstitial edema or chronic interstitial lung disease. Hypoventilatory lungs. sp cx p Mild leukocytosis, SP Afebrile Gram positive bacteremia- reaL vs contaminant seizure disorder hypothyroidism s/p PEG Down syndrome SNF resident Plan: -Continue empiric IV Vancomycin #4/ and Cefepime #4/7 pending cultures -Bcx x2 -f/u cx -Monitor CBC/CMP, temperatures -influenza sc -aspiration precautions Thank you for this consultation. Will continue to follow along with you. Subjective Allergies: Coded Allergies: No Known Allergies (Unverified , 10/16/18) Subjective Afebrile Leukocytosis resolved Objective Vital Signs Last 24 Hour Vital Signs Date Time Temp Pulse Resp B/P (MAP) Pulse Ox O2 Delivery O2 Flow Rate FiO2 11/12/18 11:55 97.1 64 20 110/67 (81) 97 11/12/18 09:00 Nasal Cannula 2.0 11/12/18 08:11 55 18 Nasal Cannula 2.0 28 11/12/18 08:00 97.4 76 20 119/58 (78) 97 11/12/18 04:00 98.2 64 18 112/58 (76) 95 11/12/18 00:53 74 18 Nasal Cannula 2.0 28 11/12/18 00:00 97.6 60 19 105/54 (71) 95 11/11/18 21:00 Nasal Cannula 2.0 11/11/18 20:00 97.8 63 19 108/57 (74) 93 11/11/18 16:00 97.7 62 18 106/59 (75) 94 Height (Feet): 5 Height (Inches): 4.00 Weight (Pounds): 140 Objective General Appearance: NAD - awake, nonverbal , bedridden HEENT: NCAT, MMM, Down syndrome facial features Respiratory/Chest: Course B/L Cardiovascular/Chest: normal rate, no JVD Abdomen: normal bowel sounds, non tender, soft, feeding tube - GT with TF Microbiology Date/Time Source Procedure Growth Status 11/09/18 20:03 Blood Blood Culture - Preliminary Gram Positive Cocci Resulted 11/09/18 19:47 Blood Blood Culture - Preliminary Gram Positive Cocci Resulted 11/10/18 14:44 Sputum Gram Stain - Final Resulted 11/10/18 14:44 Sputum Sputum Culture - Preliminary NORMAL UPPER RESPIRATORY MARIA A AT 48 ... Resulted 11/09/18 20:20 Rectum VRE Culture - Final Enterococcus Faecium - Vre Complete Laboratory Tests Test 11/12/18 06:03 White Blood Count 5.3 K/UL (4.8-10.8) Red Blood Count 3.79 M/UL (4.20-5.40) L Hemoglobin 13.0 G/DL (12.0-16.0) Hematocrit 39.7 % (37.0-47.0) Mean Corpuscular Volume 105 FL (80-99) H Mean Corpuscular Hemoglobin 34.2 PG (27.0-31.0) H Mean Corpuscular Hemoglobin Concent 32.7 G/DL (32.0-36.0) Red Cell Distribution Width 13.8 % (11.6-14.8) Platelet Count 248 K/UL (150-450) Mean Platelet Volume 6.8 FL (6.5-10.1) Neutrophils (%) (Auto) 45.5 % (45.0-75.0) Lymphocytes (%) (Auto) 37.3 % (20.0-45.0) Monocytes (%) (Auto) 14.0 % (1.0-10.0) H Eosinophils (%) (Auto) 1.2 % (0.0-3.0) Basophils (%) (Auto) 2.0 % (0.0-2.0) Sodium Level 142 MMOL/L (136-145) Potassium Level 3.6 MMOL/L (3.5-5.1) Chloride Level 108 MMOL/L (98-107) H Carbon Dioxide Level 29 MMOL/L (21-32) Anion Gap 5 mmol/L (5-15) Blood Urea Nitrogen 13 mg/dL (7-18) Creatinine 0.4 MG/DL (0.55-1.30) L Estimat Glomerular Filtration Rate > 60 mL/min (>60) Glucose Level 115 MG/DL (74-106) H Calcium Level 9.1 MG/DL (8.5-10.1) Current Medications Medications (Trade) Dose Ordered Sig/Katy Route PRN Reason Start Time Stop Time Status Last Admin Dose Admin Acetaminophen (Tylenol) 650 mg Q4H PRN GT FEVER (temp>100.5F) 11/09/18 21:15 12/09/18 20:59 Albuterol/ Ipratropium (Albuterol/ Ipratropium) 3 ml Q4H PRN HHN Shortness of Breath 11/09/18 21:00 11/14/18 20:59 Cefepime HCl 2 gm/ Dextrose 110 ml @ 220 mls/hr EVERY 12 HOURS IV 11/09/18 23:00 11/16/18 22:59 11/12/18 08:10 Divalproex Sodium (Depakote Sprinkles) 500 mg DAILY GT 11/10/18 09:00 12/10/18 08:59 11/12/18 08:10 Heparin Sodium (Porcine) (Heparin 5000 units/ml) 5,000 units EVERY 12 HOURS SUBQ 11/09/18 21:00 12/09/18 20:59 11/12/18 08:17 Levetiracetam (Keppra) 750 mg Q12HR ORAL 11/10/18 21:00 12/10/18 20:59 11/12/18 08:10 Levothyroxine Sodium (Synthroid) 75 mcg DAILY GT 11/10/18 09:00 12/10/18 08:59 11/12/18 08:10 Lorazepam (Ativan 2mg/ml 1ml) 2 mg Q2H PRN IV For Anxiety 11/09/18 21:00 11/16/18 20:59 Morphine Sulfate (Morphine Sulfate) 4 mg Q4H PRN IVP Severe Pain (Pain Scale 7-10) 11/09/18 21:00 11/16/18 20:59 Ondansetron HCl (Zofran) 4 mg Q6H PRN IVP Nausea & Vomiting 11/09/18 21:00 12/09/18 20:59 Polyethylene Glycol (Miralax) 17 gm DAILYPRN PRN GT Constipation 11/09/18 21:15 12/09/18 20:59 Sodium Chloride 1,000 ml @ 50 mls/hr Q20H IV 11/09/18 21:00 12/09/18 20:59 11/12/18 08:10 Vancomycin HCl (Vanco rx to dose) 1 ea DAILY PRN MISC PER RX PROTOCOL 11/09/18 21:15 12/09/18 21:14 Vancomycin HCl 750 mg/Sodium Chloride 275 ml @ 183.333 mls/hr Q12HR@0000,1200 IVPB 11/10/18 12:00 11/15/18 11:59 11/12/18 11:36 Chencho Corley MD Nov 12, 2018 12:11
--- NOTE | 2018-11-12 15:01 | Pulmonology Progress Note ---
Assessment/Plan Problems: (1) Pneumonia (2) Trisomy 21, Down syndrome (3) Seizure disorder (4) Hypothyroidism Assessment/Plan f/u cultures continue abx check electroltyes might get discharged once we know the cultures dvt prophylaxis. Subjective ROS Limited/Unobtainable: Yes Allergies: Coded Allergies: No Known Allergies (Unverified , 10/16/18) Objective Last 24 Hour Vital Signs Date Time Temp Pulse Resp B/P (MAP) Pulse Ox O2 Delivery O2 Flow Rate FiO2 11/12/18 11:55 97.1 64 20 110/67 (81) 97 11/12/18 09:00 Nasal Cannula 2.0 11/12/18 08:11 55 18 Nasal Cannula 2.0 28 11/12/18 08:00 97.4 76 20 119/58 (78) 97 11/12/18 04:00 98.2 64 18 112/58 (76) 95 11/12/18 00:53 74 18 Nasal Cannula 2.0 28 11/12/18 00:00 97.6 60 19 105/54 (71) 95 11/11/18 21:00 Nasal Cannula 2.0 11/11/18 20:00 97.8 63 19 108/57 (74) 93 11/11/18 16:00 97.7 62 18 106/59 (75) 94 Intake and Output 11/11/18 11/12/18 18:59 06:59 Intake Total 1430 ml 1576.666 ml Balance 1430 ml 1576.666 ml Free Water 300 ml IV Total 860 ml 1036.666 ml Tube Feeding 270 ml 540 ml # Voids 3 1 HEENT: normocephalic, atraumatic Respiratory/Chest: chest wall non-tender, normal breath sounds Breasts: no masses Cardiovascular: regular rhythm Genitourinary: normal external genitalia Extremities: no clubbing Skin: no lesions Microbiology Date/Time Source Procedure Growth Status 11/09/18 20:03 Blood Blood Culture - Preliminary Gram Positive Cocci Resulted 11/09/18 19:47 Blood Blood Culture - Preliminary Gram Positive Cocci Resulted 11/10/18 14:44 Sputum Gram Stain - Final Resulted 11/10/18 14:44 Sputum Sputum Culture - Preliminary NORMAL UPPER RESPIRATORY MARIA A AT 48 ... Resulted 11/09/18 20:20 Rectum VRE Culture - Final Enterococcus Faecium - Vre Complete Laboratory Tests 11/12/18 06:03: White Blood Count 5.3, Red Blood Count 3.79L, Hemoglobin 13.0, Hematocrit 39.7, Mean Corpuscular Volume 105H, Mean Corpuscular Hemoglobin 34.2H, Mean Corpuscular Hemoglobin Concent 32.7, Red Cell Distribution Width 13.8, Platelet Count 248, Mean Platelet Volume 6.8, Neutrophils (%) (Auto) 45.5, Lymphocytes (% ) (Auto) 37.3, Monocytes (%) (Auto) 14.0H, Eosinophils (%) (Auto) 1.2, Basophils (%) (Auto) 2.0, Sodium Level 142, Potassium Level 3.6, Chloride Level 108H, Carbon Dioxide Level 29, Anion Gap 5, Blood Urea Nitrogen 13, Creatinine 0.4L, Estimat Glomerular Filtration Rate > 60, Glucose Level 115H, Calcium Level 9.1 Current Medications Medications (Trade) Dose Ordered Sig/Katy Route PRN Reason Start Time Stop Time Status Last Admin Dose Admin Acetaminophen (Tylenol) 650 mg Q4H PRN GT FEVER (temp>100.5F) 11/09/18 21:15 12/09/18 20:59 Albuterol/ Ipratropium (Albuterol/ Ipratropium) 3 ml Q4H PRN HHN Shortness of Breath 11/09/18 21:00 11/14/18 20:59 Cefepime HCl 2 gm/ Dextrose 110 ml @ 220 mls/hr EVERY 12 HOURS IV 11/09/18 23:00 11/16/18 22:59 11/12/18 08:10 Divalproex Sodium (Depakote Sprinkles) 500 mg DAILY GT 11/10/18 09:00 12/10/18 08:59 11/12/18 08:10 Heparin Sodium (Porcine) (Heparin 5000 units/ml) 5,000 units EVERY 12 HOURS SUBQ 11/09/18 21:00 12/09/18 20:59 11/12/18 08:17 Levetiracetam (Keppra) 750 mg Q12HR ORAL 11/10/18 21:00 12/10/18 20:59 11/12/18 08:10 Levothyroxine Sodium (Synthroid) 75 mcg DAILY GT 11/10/18 09:00 12/10/18 08:59 2/4/19 08:10 Lorazepam (Ativan 2mg/ml 1ml) 2 mg Q2H PRN IV For Anxiety 11/09/18 21:00 11/16/18 20:59 Morphine Sulfate (Morphine Sulfate) 4 mg Q4H PRN IVP Severe Pain (Pain Scale 7-10) 11/09/18 21:00 11/16/18 20:59 Ondansetron HCl (Zofran) 4 mg Q6H PRN IVP Nausea & Vomiting 11/09/18 21:00 12/09/18 20:59 Polyethylene Glycol (Miralax) 17 gm DAILYPRN PRN GT Constipation 11/09/18 21:15 12/09/18 20:59 Sodium Chloride 1,000 ml @ 50 mls/hr Q20H IV 11/09/18 21:00 12/09/18 20:59 11/12/18 08:10 Vancomycin HCl (Vanco rx to dose) 1 ea DAILY PRN MISC PER RX PROTOCOL 11/09/18 21:15 12/09/18 21:14 Vancomycin HCl 1 gm/Dextrose 275 ml @ 183.708 mls/hr Q12H IVPB 11/12/18 23:00 11/17/18 22:59 Elayne Allred MD Nov 12, 2018 15:01
[2018-11-12 15:56] VITALS: BP 96/48
[2018-11-12] MEDS ORDERED: 1/2 NS 1000ml IV ONE (16:36)
[2018-11-12 20:00] VITALS: BP 110/79
[2018-11-12] MEDS: Vancomycin 1gm/D5W 275ml IVPB SCH ×2 (23:35)
[2018-11-13] VITALS: BP 152/78
[2018-11-13 04:00] VITALS: BP 109/62
[2018-11-13 08:00] VITALS: BP 118/66
[2018-11-13] MEDS ORDERED: levETIRAcetam 500mg/5ml Liquid ORAL SCH (09:00)
[2018-11-13] MEDS: Depakote 125mg Sprinkles GT SCH (09:24)
[2018-11-13] MEDS: levETIRAcetam 500mg/5ml Liquid GT SCH ×2 (09:25→21:13)
[2018-11-13] MEDS: Cefepime HCl 2 GM in D5W 110 ML IV SCH ×2 (09:26→21:12)
[2018-11-13] MEDS: Heparin 5000 units/ml inj SUBQ SCH ×2 (09:31→21:12)
--- NOTE | 2018-11-13 10:09 | Infectious Diseases Prog Note ---
Assessment/Plan Assessment/Plan Abx: IV Vancomycin 11/09- Cefepime 11/09- Assessment: Probable PNA -CXR: Nonspecific bilateral interstitial prominence can be seen in the setting of mild interstitial edema or chronic interstitial lung disease. Hypoventilatory lungs. sp cx p Mild leukocytosis, SP Afebrile Gram positive bacteremia- reaL vs contaminant seizure disorder hypothyroidism s/p PEG Down syndrome SNF resident Plan: -Continue empiric IV Vancomycin #5/ and Cefepime #5/7 pending cultures -Bcx x2 -f/u cx -Monitor CBC/CMP, temperatures -influenza sc -aspiration precautions Thank you for this consultation. Will continue to follow along with you. Subjective Allergies: Coded Allergies: No Known Allergies (Unverified , 10/16/18) Subjective Afebrile No Leukocytosis Objective Vital Signs Last 24 Hour Vital Signs Date Time Temp Pulse Resp B/P (MAP) Pulse Ox O2 Delivery O2 Flow Rate FiO2 11/13/18 04:00 98.3 65 20 109/62 (78) 97 11/13/18 00:00 98.0 78 18 152/78 (102) 100 11/12/18 21:00 Nasal Cannula 2.0 11/12/18 20:00 97.5 68 18 110/79 (89) 98 11/12/18 15:56 98.2 62 18 96/48 (64) 97 11/12/18 11:55 97.1 64 20 110/67 (81) 97 Height (Feet): 5 Height (Inches): 4.00 Weight (Pounds): 140 Objective General: NAD - awake, nonverbal HEENT: NCAT, MMM, Down syndrome facial features Respiratory/Chest: Course B/L Cardiovascular/Chest: normal rate, no JVD Abdomen: normal bowel sounds, non tender, soft, feeding tube - GT with TF Microbiology Date/Time Source Procedure Growth Status 11/11/18 15:00 Blood Blood Culture - Preliminary NO GROWTH AFTER 24 HOURS Resulted 11/11/18 15:00 Blood Blood Culture - Preliminary NO GROWTH AFTER 24 HOURS Resulted 11/10/18 14:44 Sputum Gram Stain - Final Resulted 11/10/18 14:44 Sputum Sputum Culture - Preliminary NORMAL UPPER RESPIRATORY MARIA A AT 48 ... Resulted Current Medications Medications (Trade) Dose Ordered Sig/Katy Route PRN Reason Start Time Stop Time Status Last Admin Dose Admin Acetaminophen (Tylenol) 650 mg Q4H PRN GT FEVER (temp>100.5F) 11/09/18 21:15 12/09/18 20:59 Albuterol/ Ipratropium (Albuterol/ Ipratropium) 3 ml Q4H PRN HHN Shortness of Breath 11/09/18 21:00 11/14/18 20:59 Cefepime HCl 2 gm/ Dextrose 110 ml @ 220 mls/hr EVERY 12 HOURS IV 11/09/18 23:00 11/16/18 22:59 11/13/18 09:26 Divalproex Sodium (Depakote Sprinkles) 500 mg DAILY GT 11/10/18 09:00 12/10/18 08:59 11/13/18 09:24 Heparin Sodium (Porcine) (Heparin 5000 units/ml) 5,000 units EVERY 12 HOURS SUBQ 11/09/18 21:00 12/09/18 20:59 11/13/18 09:31 Levetiracetam (Keppra) 750 mg Q12HR GT 11/13/18 09:15 12/13/18 08:59 11/13/18 09:25 Levothyroxine Sodium (Synthroid) 75 mcg DAILY GT 11/10/18 09:00 12/10/18 08:59 11/13/18 09:24 Lorazepam (Ativan 2mg/ml 1ml) 2 mg Q2H PRN IV For Anxiety 11/09/18 21:00 11/16/18 20:59 Morphine Sulfate (Morphine Sulfate) 4 mg Q4H PRN IVP Severe Pain (Pain Scale 7-10) 11/09/18 21:00 11/16/18 20:59 Ondansetron HCl (Zofran) 4 mg Q6H PRN IVP Nausea & Vomiting 11/09/18 21:00 12/09/18 20:59 Polyethylene Glycol (Miralax) 17 gm DAILYPRN PRN GT Constipation 11/09/18 21:15 12/09/18 20:59 Sodium Chloride 1,000 ml @ 50 mls/hr Q20H IV 11/09/18 21:00 12/09/18 20:59 11/12/18 08:10 Vancomycin HCl (Vanco rx to dose) 1 ea DAILY PRN MISC PER RX PROTOCOL 11/09/18 21:15 3/3/19 21:14 Vancomycin HCl 1 gm/Dextrose 275 ml @ 183.708 mls/hr Q12H IVPB 11/12/18 23:00 11/17/18 22:59 11/12/18 23:35 Chencho Corley MD Nov 13, 2018 10:09
[2018-11-13] MEDS: Vancomycin 1gm/D5W 275ml IVPB SCH ×4 (11:36→23:10)
[2018-11-13 12:00] VITALS: BP 116/64
--- NOTE | 2018-11-13 14:06 | Pulmonology Progress Note ---
Assessment/Plan Problems: (1) Pneumonia (2) Trisomy 21, Down syndrome (3) Seizure disorder (4) Hypothyroidism Assessment/Plan BC positive for GPCf/u cultures continue abx check electroltyes might get discharged once we know the cultures dvt prophylaxis. dc to [facility] when cultures are available. Subjective ROS Limited/Unobtainable: Yes Allergies: Coded Allergies: No Known Allergies (Unverified , 10/16/18) Objective Last 24 Hour Vital Signs Date Time Temp Pulse Resp B/P (MAP) Pulse Ox O2 Delivery O2 Flow Rate FiO2 11/13/18 12:00 97.2 64 18 116/64 (81) 99 11/13/18 11:24 Nasal Cannula 2.0 28 11/13/18 11:24 97 Nasal Cannula 2.0 28 11/13/18 11:24 54 18 Nasal Cannula 2.0 28 11/13/18 09:00 Nasal Cannula 2.0 11/13/18 08:00 97.2 18 118/66 (83) 98 11/13/18 04:00 98.3 65 20 109/62 (78) 97 11/13/18 00:00 98.0 78 18 152/78 (102) 100 11/12/18 21:00 Nasal Cannula 2.0 11/12/18 20:00 97.5 68 18 110/79 (89) 98 11/12/18 15:56 98.2 62 18 96/48 (64) 97 Intake and Output 11/12/18 11/13/18 18:59 06:59 Intake Total 1535.000 ml 1725.000 ml Balance 1535.000 ml 1725.000 ml Intake Oral 240 ml Free Water 150 ml 300 ml IV Total 785.000 ml 885.000 ml Tube Feeding 360 ml 540 ml # Voids 1 General Appearance: WD/WN HEENT: normocephalic, atraumatic Respiratory/Chest: chest wall non-tender, lungs clear Cardiovascular: normal peripheral pulses, regular rhythm Abdomen: normal bowel sounds, soft, non tender Genitourinary: normal external genitalia Skin: no rash Microbiology Date/Time Source Procedure Growth Status 11/11/18 15:00 Blood Blood Culture - Preliminary NO GROWTH AFTER 24 HOURS Resulted 11/11/18 15:00 Blood Blood Culture - Preliminary NO GROWTH AFTER 24 HOURS Resulted 11/10/18 14:44 Sputum Gram Stain - Final Resulted 11/10/18 14:44 Sputum Sputum Culture - Preliminary NORMAL UPPER RESPIRATORY MARIA A AT 48 ... Resulted Current Medications Medications (Trade) Dose Ordered Sig/Katy Route PRN Reason Start Time Stop Time Status Last Admin Dose Admin Acetaminophen (Tylenol) 650 mg Q4H PRN GT FEVER (temp>100.5F) 11/09/18 21:15 12/09/18 20:59 Albuterol/ Ipratropium (Albuterol/ Ipratropium) 3 ml Q4H PRN HHN Shortness of Breath 11/09/18 21:00 11/14/18 20:59 Cefepime HCl 2 gm/ Dextrose 110 ml @ 220 mls/hr EVERY 12 HOURS IV 11/09/18 23:00 11/16/18 22:59 11/13/18 09:26 Divalproex Sodium (Depakote Sprinkles) 500 mg DAILY GT 11/10/18 09:00 12/10/18 08:59 11/13/18 09:24 Heparin Sodium (Porcine) (Heparin 5000 units/ml) 5,000 units EVERY 12 HOURS SUBQ 11/09/18 21:00 12/09/18 20:59 11/13/18 09:31 Levetiracetam (Keppra) 750 mg Q12HR GT 11/13/18 09:15 12/13/18 08:59 11/13/18 09:25 Levothyroxine Sodium (Synthroid) 75 mcg DAILY GT 11/10/18 09:00 12/10/18 08:59 11/13/18 09:24 Lorazepam (Ativan 2mg/ml 1ml) 2 mg Q2H PRN IV For Anxiety 11/09/18 21:00 11/16/18 20:59 Morphine Sulfate (Morphine Sulfate) 4 mg Q4H PRN IVP Severe Pain (Pain Scale 7-10) 11/09/18 21:00 11/16/18 20:59 Ondansetron HCl (Zofran) 4 mg Q6H PRN IVP Nausea & Vomiting 11/09/18 21:00 12/09/18 20:59 Polyethylene Glycol (Miralax) 17 gm DAILYPRN PRN GT Constipation 11/09/18 21:15 12/09/18 20:59 Sodium Chloride 1,000 ml @ 50 mls/hr Q20H IV 11/09/18 21:00 12/09/18 20:59 11/12/18 08:10 Vancomycin HCl (Vanco rx to dose) 1 ea DAILY PRN MISC PER RX PROTOCOL 11/09/18 21:15 12/09/18 21:14 Vancomycin HCl 1 gm/Dextrose 275 ml @ 183.708 mls/hr Q12H IVPB 11/12/18 23:00 11/17/18 22:59 11/13/18 11:36 Elayne Allred MD Nov 13, 2018 14:06
[2018-11-13 16:00] VITALS: BP 112/58
[2018-11-13 20:00] VITALS: BP 105/55
--- NOTE | 2018-11-13 22:05 | Consultation ---
History of Present Illness General Date patient seen: Nov 10, 2018 Chief Complaint: Upper Respiratory Illness Present Illness HPI 58 years old female with past medical history of seizure disorder, hypothyroidism, G tube, Down syndrome, came to the emergency department for evaluation of cough and congestion, lasting for several days. the pt has episodes of agitation and is confused. waxing and waning of consciousness. Allergies: Coded Allergies: No Known Allergies (Unverified , 10/16/18) Medication History Scheduled Ascorbic Acid* (Vitamin C*), 500 MG GT DAILY, (Reported) Docusate Sodium* (Docusate Sodium*), 100 MG GT TWICE A DAY, (Reported) Levetiracetam (Keppra), 750 MG GT TWICE A DAY, (Reported) Levothyroxine Sodium* (Levothyroxine Sodium*), 75 MCG GT DAILY, (Reported) Levothyroxine Sodium* (Levothyroxine Sodium*), 125 MCG ORAL DAILY@0630 Levothyroxine Sodium* (Levothyroxine Sodium*), 125 MCG ORAL DAILY, (Reported) Lorazepam* (Ativan*), 0.5 MG ORAL THREE TIMES A DAY, (Reported) Lorazepam* (Ativan*), 1 MG ORAL BEDTIME, (Reported) Magnesium Hydroxide* (Milk Of Magnesia*), 30 ML ORAL DAILY, (Reported) Magnesium Hydroxide* (Milk Of Magnesia*), 30 ML ORAL DAILY, (Reported) Multivitamin With Minerals (Multivitamins With Minerals*), 1 TAB ORAL DAILY, ( Reported) Polyethylene Glycol 3350* (Miralax*), 17 GM ORAL DAILY, (Reported) Vitamin D (Vitamin D3), 100 UNITS GT DAILY, (Reported) Scheduled PRN Acetaminophen* (Acetaminophen 325MG Tablet*), 650 MG GT Q4H PRN for Mild Pain ( Pain Scale 1-3), (Reported) Guaifenesin/Codeine Phos* (Robitussin Ac*), 1 TSP ORAL Q4H PRN for For Cough, ( Reported) Miscellaneous Medications Acetaminophen (Tylenol), 325 MG PO, (Reported) Calcium Carbonate/Vitamin D3 (Calcium 500 + D Tablet), 1 EACH PO, (Reported) Divalproex Sodium (Depakote Sprinkle), 500 MG PO, (Reported) Levetiracetam (Keppra), 500 MG IV, (Reported) Patient History Limited by: medical condition History Provided By: Medical Record, PMD Healthcare decision maker Resuscitation status Full Code Advanced Directive on File Past Medical/Surgical History Past Medical/Surgical History: (1) Pneumonia (2) Trisomy 21, Down syndrome (3) Seizure disorder (4) Hypothyroidism Review of Systems Psychiatric: Reports: anxiety, emotional problems Physical Exam General Appearance: alert, confused, agitated Last 24 Hour Vital Signs Date Time Temp Pulse Resp B/P (MAP) Pulse Ox O2 Delivery O2 Flow Rate FiO2 11/13/18 20:00 98.1 71 18 105/55 (72) 98 11/13/18 16:00 97.7 62 18 112/58 (76) 98 11/13/18 12:00 97.2 64 18 116/64 (81) 99 11/13/18 11:24 Nasal Cannula 2.0 28 11/13/18 11:24 97 Nasal Cannula 2.0 28 11/13/18 11:24 54 18 Nasal Cannula 2.0 28 11/13/18 09:00 Nasal Cannula 2.0 11/13/18 08:00 97.2 18 118/66 (83) 98 11/13/18 04:00 98.3 65 20 109/62 (78) 97 11/13/18 00:00 98.0 78 18 152/78 (102) 100 Intake and Output 11/12/18 11/13/18 18:59 06:59 Intake Total 1535.000 ml 1725.000 ml Balance 1535.000 ml 1725.000 ml Intake Oral 240 ml Free Water 150 ml 300 ml IV Total 785.000 ml 885.000 ml Tube Feeding 360 ml 540 ml # Voids 1 Height (Feet): 5 Height (Inches): 4.00 Weight (Pounds): 140 Medications Current Medications Medications (Trade) Dose Ordered Sig/Katy Route PRN Reason Start Time Stop Time Status Last Admin Dose Admin Acetaminophen (Tylenol) 650 mg Q4H PRN GT FEVER (temp>100.5F) 11/09/18 21:15 12/09/18 20:59 Albuterol/ Ipratropium (Albuterol/ Ipratropium) 3 ml Q4H PRN HHN Shortness of Breath 11/09/18 21:00 11/14/18 20:59 Cefepime HCl 2 gm/ Dextrose 110 ml @ 220 mls/hr EVERY 12 HOURS IV 11/09/18 23:00 11/16/18 22:59 11/13/18 21:12 Divalproex Sodium (Depakote Sprinkles) 500 mg DAILY GT 11/10/18 09:00 12/10/18 08:59 11/13/18 09:24 Heparin Sodium (Porcine) (Heparin 5000 units/ml) 5,000 units EVERY 12 HOURS SUBQ 11/09/18 21:00 12/09/18 20:59 11/13/18 21:12 Levetiracetam (Keppra) 750 mg Q12HR GT 11/13/18 09:15 12/13/18 08:59 11/13/18 21:13 Levothyroxine Sodium (Synthroid) 75 mcg DAILY GT 11/10/18 09:00 12/10/18 08:59 11/13/18 09:24 Lorazepam (Ativan 2mg/ml 1ml) 2 mg Q2H PRN IV For Anxiety 11/09/18 21:00 11/16/18 20:59 Morphine Sulfate (Morphine Sulfate) 4 mg Q4H PRN IVP Severe Pain (Pain Scale 7-10) 11/09/18 21:00 11/16/18 20:59 Ondansetron HCl (Zofran) 4 mg Q6H PRN IVP Nausea & Vomiting 11/09/18 21:00 12/09/18 20:59 Polyethylene Glycol (Miralax) 17 gm DAILYPRN PRN GT Constipation 11/09/18 21:15 12/09/18 20:59 Sodium Chloride 1,000 ml @ 50 mls/hr Q20H IV 11/09/18 21:00 12/09/18 20:59 11/13/18 21:11 Vancomycin HCl (Vanco rx to dose) 1 ea DAILY PRN MISC PER RX PROTOCOL 11/09/18 21:15 12/09/18 21:14 Vancomycin HCl 1 gm/Dextrose 275 ml @ 183.708 mls/hr Q12H IVPB 11/12/18 23:00 11/17/18 22:59 11/13/18 11:36 Assessment/Plan Problem List: (1) Encephalopathy chronic ICD Codes: G93.49 - Other encephalopathy SNOMED: 58063040 Assessment/Plan Ativan prn Depakote would cover seizure and agitation José Antonio Wilde MD Nov 13, 2018 22:05
[2018-11-14] VITALS: BP 128/65
[2018-11-14 04:00] VITALS: BP 106/76
[2018-11-14 06:53] LABS: BASOPHILS % (AUTO) 1.3 % (0.0-2.0); EOSINOPHILS % (AUTO) 1.9 % (0.0-3.0); HEMATOCRIT 48.4 % (37.0-47.0); HEMOGLOBIN 15.8 G/DL (12.0-16.0); MEAN CORPUSCULAR VOLUME 105 FL (80-99); MONOCYTES % (AUTO) 9.6 % (1.0-10.0); NEUTROPHILS % (AUTO) 39.3 % (45.0-75.0); PLATELET COUNT 296 K/UL (150-450); RED CELL DISTRIBUTION WIDTH 13.8 % (11.6-14.8); WHITE BLOOD COUNT 6.3 K/UL (4.8-10.8)
[2018-11-14 07:09] LABS: ALANINE AMINOTRANSFERASE 53 U/L (12-78); ALBUMIN 2.6 G/DL (3.4-5.0); ALBUMIN/GLOBULIN RATIO 0.5 (1.0-2.7); ALKALINE PHOSPHATASE 69 U/L (46-116); ANION GAP 4 mmol/L (5-15); ASPARTATE AMINO TRANSFERASE 39 U/L (15-37); BILIRUBIN,TOTAL 0.4 MG/DL (0.2-1.0); BLOOD UREA NITROGEN 8 mg/dL (7-18); CALCIUM 9.8 MG/DL (8.5-10.1); CARBON DIOXIDE 32 MMOL/L (21-32); CHLORIDE 104 MMOL/L (98-107); CREATININE 0.4 MG/DL (0.55-1.30); PHOSPHORUS 3.5 MG/DL (2.5-4.9); POTASSIUM 4.5 MMOL/L (3.5-5.1); SODIUM 140 MMOL/L (136-145)
[2018-11-14 08:00] VITALS: BP 135/75
[2018-11-14] MEDS: Depakote 125mg Sprinkles GT SCH (08:59)
[2018-11-14] MEDS: levETIRAcetam 500mg/5ml Liquid GT SCH (08:59)
[2018-11-14] MEDS: Heparin 5000 units/ml inj SUBQ SCH (09:00)
[2018-11-14] MEDS: Cefepime HCl 2 GM in D5W 110 ML IV SCH (09:01)
[2018-11-14 12:00] VITALS: BP 121/71
[2018-11-14] MEDS: Vancomycin 1gm/D5W 275ml IVPB SCH ×2 (12:10)
--- NOTE | 2018-11-14 12:44 | Infectious Diseases Prog Note ---
Assessment/Plan Assessment/Plan Abx: IV Vancomycin 11/09- Cefepime 11/09- Assessment: Probable PNA -CXR: Nonspecific bilateral interstitial prominence can be seen in the setting of mild interstitial edema or chronic interstitial lung disease. Hypoventilatory lungs. 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 Will continue to follow along with you. Subjective Allergies: Coded Allergies: No Known Allergies (Unverified , 10/16/18) Subjective Doing well Afebrile No Leukocytosis Objective Vital Signs Last 24 Hour Vital Signs Date Time Temp Pulse Resp B/P (MAP) Pulse Ox O2 Delivery O2 Flow Rate FiO2 11/14/18 12:00 97.7 66 18 121/71 (88) 94 11/14/18 09:00 Nasal Cannula 2.0 11/14/18 08:00 98.3 86 19 135/75 (95) 96 11/14/18 04:00 97.4 61 16 106/76 (86) 95 11/14/18 00:00 98.3 67 18 128/65 (86) 96 11/13/18 21:00 Nasal Cannula 2.0 11/13/18 20:00 Nasal Cannula 2.0 28 11/13/18 20:00 70 18 Nasal Cannula 2.0 28 11/13/18 20:00 98.1 71 18 105/55 (72) 98 11/13/18 20:00 98 Nasal Cannula 2.0 28 11/13/18 16:00 97.7 62 18 112/58 (76) 98 Height (Feet): 5 Height (Inches): 4.00 Weight (Pounds): 129 Objective General: nonverbal HEENT: NCAT, MMM, Down syndrome facial features Respiratory/Chest: Course B/L Cardiovascular/Chest: normal rate, no JVD Abdomen: normal bowel sounds, non tender, soft, feeding tube - GT with TF Microbiology Date/Time Source Procedure Growth Status 11/11/18 15:00 Blood Blood Culture - Preliminary NO GROWTH AFTER 48 HOURS Resulted 11/11/18 15:00 Blood Blood Culture - Preliminary NO GROWTH AFTER 48 HOURS Resulted Laboratory Tests Test 11/14/18 05:40 11/14/18 10:10 White Blood Count 6.3 K/UL (4.8-10.8) Red Blood Count 4.60 M/UL (4.20-5.40) Hemoglobin 15.8 G/DL (12.0-16.0) Hematocrit 48.4 % (37.0-47.0) H Mean Corpuscular Volume 105 FL (80-99) H Mean Corpuscular Hemoglobin 34.3 PG (27.0-31.0) H Mean Corpuscular Hemoglobin Concent 32.6 G/DL (32.0-36.0) Red Cell Distribution Width 13.8 % (11.6-14.8) Platelet Count 296 K/UL (150-450) Mean Platelet Volume 6.8 FL (6.5-10.1) Neutrophils (%) (Auto) 39.3 % (45.0-75.0) L Lymphocytes (%) (Auto) 48.0 % (20.0-45.0) H Monocytes (%) (Auto) 9.6 % (1.0-10.0) Eosinophils (%) (Auto) 1.9 % (0.0-3.0) Basophils (%) (Auto) 1.3 % (0.0-2.0) Sodium Level 140 MMOL/L (136-145) Potassium Level 4.5 MMOL/L (3.5-5.1) Chloride Level 104 MMOL/L (98-107) Carbon Dioxide Level 32 MMOL/L (21-32) Anion Gap 4 mmol/L (5-15) L Blood Urea Nitrogen 8 mg/dL (7-18) Creatinine 0.4 MG/DL (0.55-1.30) L Estimat Glomerular Filtration Rate > 60 mL/min (>60) Glucose Level 89 MG/DL (74-106) Calcium Level 9.8 MG/DL (8.5-10.1) Phosphorus Level 3.5 MG/DL (2.5-4.9) Magnesium Level 2.2 MG/DL (1.8-2.4) Total Bilirubin 0.4 MG/DL (0.2-1.0) Aspartate Amino Transf (AST/SGOT) 39 U/L (15-37) H Alanine Aminotransferase (ALT/SGPT) 53 U/L (12-78) Alkaline Phosphatase 69 U/L (46-116) Total Protein 7.8 G/DL (6.4-8.2) Albumin 2.6 G/DL (3.4-5.0) L Globulin 5.2 g/dL Albumin/Globulin Ratio 0.5 (1.0-2.7) L Vancomycin Level Trough 17.1 ug/mL (5.0-12.0) H Current Medications Medications (Trade) Dose Ordered Sig/Katy Route PRN Reason Start Time Stop Time Status Last Admin Dose Admin Acetaminophen (Tylenol) 650 mg Q4H PRN GT FEVER (temp>100.5F) 11/09/18 21:15 12/09/18 20:59 Albuterol/ Ipratropium (Albuterol/ Ipratropium) 3 ml Q4H PRN HHN Shortness of Breath 11/09/18 21:00 11/14/18 20:59 Cefepime HCl 2 gm/ Dextrose 110 ml @ 220 mls/hr EVERY 12 HOURS IV 11/09/18 23:00 11/16/18 22:59 11/14/18 09:01 Divalproex Sodium (Depakote Sprinkles) 500 mg DAILY GT 11/10/18 09:00 12/10/18 08:59 11/14/18 08:59 Heparin Sodium (Porcine) (Heparin 5000 units/ml) 5,000 units EVERY 12 HOURS SUBQ 11/09/18 21:00 12/09/18 20:59 11/14/18 09:00 Levetiracetam (Keppra) 750 mg Q12HR GT 11/13/18 09:15 12/13/18 08:59 11/14/18 08:59 Levothyroxine Sodium (Synthroid) 75 mcg DAILY GT 11/10/18 09:00 12/10/18 08:59 11/14/18 08:59 Lorazepam (Ativan 2mg/ml 1ml) 2 mg Q2H PRN IV For Anxiety 11/09/18 21:00 11/16/18 20:59 Morphine Sulfate (Morphine Sulfate) 4 mg Q4H PRN IVP Severe Pain (Pain Scale 7-10) 11/09/18 21:00 11/16/18 20:59 Ondansetron HCl (Zofran) 4 mg Q6H PRN IVP Nausea & Vomiting 11/09/18 21:00 12/09/18 20:59 Polyethylene Glycol (Miralax) 17 gm DAILYPRN PRN GT Constipation 11/09/18 21:15 12/09/18 20:59 Sodium Chloride 1,000 ml @ 50 mls/hr Q20H IV 11/09/18 21:00 12/09/18 20:59 11/13/18 21:11 Vancomycin HCl (Vanco rx to dose) 1 ea DAILY PRN MISC PER RX PROTOCOL 11/09/18 21:15 12/09/18 21:14 Vancomycin HCl 1 gm/Dextrose 275 ml @ 183.708 mls/hr Q12H IVPB 11/12/18 23:00 11/17/18 22:59 11/14/18 12:10 Chencho Corley MD Nov 14, 2018 12:44
--- NOTE | 2018-11-14 13:23 | Pulmonology Progress Note ---
Assessment/Plan Problems: (1) Pneumonia (2) Trisomy 21, Down syndrome (3) Seizure disorder (4) Hypothyroidism Assessment/Plan BC positive for GPCf/u cultures, contaminated afebrile, no WBC check electroltyes might get discharged once we know the cultures dvt prophylaxis. Subjective ROS Limited/Unobtainable: No Constitutional: Reports: no symptoms HEENT: Repors: no symptoms Respiratory: Reports: no symptoms Allergies: Coded Allergies: No Known Allergies (Unverified , 10/16/18) Objective Last 24 Hour Vital Signs Date Time Temp Pulse Resp B/P (MAP) Pulse Ox O2 Delivery O2 Flow Rate FiO2 11/14/18 12:00 97.7 66 18 121/71 (88) 94 11/14/18 11:40 Room Air 21 11/14/18 11:40 97 Room Air 21 11/14/18 11:40 67 15 Nasal Cannula 2.0 28 11/14/18 09:00 Nasal Cannula 2.0 11/14/18 08:00 98.3 86 19 135/75 (95) 96 11/14/18 04:00 97.4 61 16 106/76 (86) 95 11/14/18 00:00 98.3 67 18 128/65 (86) 96 11/13/18 21:00 Nasal Cannula 2.0 11/13/18 20:00 Nasal Cannula 2.0 28 11/13/18 20:00 70 18 Nasal Cannula 2.0 28 11/13/18 20:00 98.1 71 18 105/55 (72) 98 11/13/18 20:00 98 Nasal Cannula 2.0 28 11/13/18 16:00 97.7 62 18 112/58 (76) 98 Intake and Output 11/13/18 11/14/18 19:00 07:00 Intake Total 672.416 ml 1530.000 ml Balance 672.416 ml 1530.000 ml Free Water 300 ml IV Total 627.416 ml 735.000 ml Tube Feeding 45 ml 495 ml # Voids 1 General Appearance: WD/WN HEENT: normocephalic, atraumatic Respiratory/Chest: chest wall non-tender, lungs clear Abdomen: no mass Extremities: no cyanosis, no clubbing Skin: no rash Microbiology Date/Time Source Procedure Growth Status 11/11/18 15:00 Blood Blood Culture - Preliminary NO GROWTH AFTER 48 HOURS Resulted 11/11/18 15:00 Blood Blood Culture - Preliminary NO GROWTH AFTER 48 HOURS Resulted Laboratory Tests 11/14/18 05:40: White Blood Count 6.3, Red Blood Count 4.60, Hemoglobin 15.8, Hematocrit 48.4H, Mean Corpuscular Volume 105H, Mean Corpuscular Hemoglobin 34.3H, Mean Corpuscular Hemoglobin Concent 32.6, Red Cell Distribution Width 13.8, Platelet Count 296, Mean Platelet Volume 6.8, Neutrophils (%) (Auto) 39.3L, Lymphocytes ( %) (Auto) 48.0H, Monocytes (%) (Auto) 9.6, Eosinophils (%) (Auto) 1.9, Basophils (%) (Auto) 1.3, Sodium Level 140, Potassium Level 4.5, Chloride Level 104, Carbon Dioxide Level 32, Anion Gap 4L, Blood Urea Nitrogen 8, Creatinine 0.4L, Estimat Glomerular Filtration Rate > 60, Glucose Level 89, Calcium Level 9.8, Phosphorus Level 3.5, Magnesium Level 2.2, Total Bilirubin 0.4, Aspartate Amino Transf (AST/SGOT) 39H, Alanine Aminotransferase (ALT/SGPT) 53, Alkaline Phosphatase 69, Total Protein 7.8, Albumin 2.6L, Globulin 5.2, Albumin/Globulin Ratio 0.5L 11/14/18 10:10: Vancomycin Level Trough 17.1H Current Medications Medications (Trade) Dose Ordered Sig/Katy Route PRN Reason Start Time Stop Time Status Last Admin Dose Admin Acetaminophen (Tylenol) 650 mg Q4H PRN GT FEVER (temp>100.5F) 11/09/18 21:15 12/09/18 20:59 Albuterol/ Ipratropium (Albuterol/ Ipratropium) 3 ml Q4H PRN HHN Shortness of Breath 11/09/18 21:00 11/14/18 20:59 Cefepime HCl 2 gm/ Dextrose 110 ml @ 220 mls/hr EVERY 12 HOURS IV 11/09/18 23:00 11/16/18 22:59 11/14/18 09:01 Divalproex Sodium (Depakote Sprinkles) 500 mg DAILY GT 11/10/18 09:00 12/10/18 08:59 11/14/18 08:59 Heparin Sodium (Porcine) (Heparin 5000 units/ml) 5,000 units EVERY 12 HOURS SUBQ 11/09/18 21:00 12/09/18 20:59 11/14/18 09:00 Levetiracetam (Keppra) 750 mg Q12HR GT 11/13/18 09:15 12/13/18 08:59 11/14/18 08:59 Levothyroxine Sodium (Synthroid) 75 mcg DAILY GT 11/10/18 09:00 12/10/18 08:59 11/14/18 08:59 Lorazepam (Ativan 2mg/ml 1ml) 2 mg Q2H PRN IV For Anxiety 11/09/18 21:00 11/16/18 20:59 Morphine Sulfate (Morphine Sulfate) 4 mg Q4H PRN IVP Severe Pain (Pain Scale 7-10) 11/09/18 21:00 11/16/18 20:59 Ondansetron HCl (Zofran) 4 mg Q6H PRN IVP Nausea & Vomiting 11/09/18 21:00 12/09/18 20:59 Polyethylene Glycol (Miralax) 17 gm DAILYPRN PRN GT Constipation 11/09/18 21:15 12/09/18 20:59 Sodium Chloride 1,000 ml @ 50 mls/hr Q20H IV 11/09/18 21:00 12/09/18 20:59 11/13/18 21:11 Vancomycin HCl (Vanco rx to dose) 1 ea DAILY PRN MISC PER RX PROTOCOL 11/09/18 21:15 12/09/18 21:14 Vancomycin HCl 1 gm/Dextrose 275 ml @ 183.708 mls/hr Q12H IVPB 11/12/18 23:00 11/17/18 22:59 11/14/18 12:10 Elayne Allred MD Nov 14, 2018 13:23
[2018-11-14] MEDS ORDERED: CEFEPIME-D2 GM/50 ML IVPB (14:32)
[2018-11-14] MEDS ORDERED: VANCOMYCIN HCL1 G1 IV (14:34)
[2018-11-14] MEDS ORDERED: 1/2 NS 1000ml IV ONE (15:19)
[2018-11-14 15:55] VITALS: BP 95/68
--- NOTE | 2018-11-15 10:30 | Discharge Summary ---
Discharge Summary Discharge Summary _ DATE OF ADMISSION: 11/09/2018 DATE OF DISCHARGE: 11/14/2018 DISCHARGED BY: Dr. Elayne Allred CONSULTANTS: Dr. José Antonio Corley BRIEF HOSPITAL COURSE: Patient is a 58-year-old female, with past medical history of seizure disorder, hypothyroidism, Down syndrome, G-tube, resident of a [facility] facility, presented to the emergency department for evaluation of cough and congestion for several days. Chest x-ray done at the nursing facility revealed pneumonia. Patient was nonverbal at baseline. Patient was afebrile. There were no signs of distress. No reported chest pain. On evaluation at ED, blood pressure was 90/55, pulse rate 79, she was saturating 94% on 2 L nasal cannula. Blood work showed WBC 11.6. Hemoglobin and hematocrit were stable. Lactic acid was normal. Troponin was negative. Urinalysis was essentially negative. EKG done showed normal sinus rhythm with no acute ischemic changes. Chest x-ray showed bilateral interstitial congestion. She was started empirically on levofloxacin. She was given 1 dose of Solu-Medrol. She was then admitted to [facility] for evaluation of acute bronchitis, possible pneumonia. She was given respiratory care. She was placed on strict aspiration and reflux precautions. She was placed on nebulizer treatment. She was continued on Keppra and Depakote. She was placed on seizure precautions. TSH was slightly low. She was continued on levothyroxine 75 mcg daily. Recommend repeat TSH in 4 weeks. ID was consulted. Blood culture showed growth of staph hominis. She was started empirically IV vancomycin and cefepime. Repeat blood culture was done. Sputum culture showed growth of Streptococcus and usual respiratory marie. Patient had episodes of agitation and confusion. She had waxing and waning of consciousness. She was diagnosed with encephalopathy. She was continued on Depakote for seizure and agitation. Leukocytosis resolved. Patient was afebrile. Repeat blood culture did not isolate any growth. She was eventually cleared for discharge. To continue antibiotics at the snf. FINAL DIAGNOSES: Pneumonia Trisomy 21, Down syndrome Seizure disorder Hypothyroidism Gram-positive bacteremia-real versus contaminant [facility] resident Encephalopathy High aspiration risk Dysphagia on G-tube Protein calorie malnutrition Acute bronchitis DISPOSITION: Patient was discharged to [facility]. DISCHARGE MEDICATIONS: Refer to Discharge Medication List. I have been assigned to complete a discharge summary on this account, I was not involved with the patient's management. Rina Guevara NP Nov 15, 2018 10:30
--- NOTE | 2018-11-15 14:00 | General Progress Note ---
Assessment/Plan Problem List: (1) Encephalopathy chronic ICD Codes: G93.49 - Other encephalopathy SNOMED: 75321105 Assessment/Plan Ativan prn Depakote would cover seizure and agitation Subjective Date patient seen: Nov 14, 2018 Neurologic/Psychiatric: Reports: anxiety, depressed Allergies: Coded Allergies: No Known Allergies (Unverified , 10/16/18) Objective Last 24 Hour Vital Signs Date Time Temp Pulse Resp B/P (MAP) Pulse Ox O2 Delivery O2 Flow Rate FiO2 11/14/18 15:55 97.4 82 20 95/68 (77) 97 Intake and Output 11/14/18 11/15/18 19:00 07:00 # Voids 3 Height (Feet): 5 Height (Inches): 4.00 Weight (Pounds): 129 General Appearance: alert, confused, agitated José Antonio Widle MD Nov 15, 2018 14:00
== END 2018-11-14 19:20 | DRG 194 ==
LOC: EDBD 18:46 → EMR 19:05 → 4E 20:18 → EDBEDREQ 20:33 → 4E 22:15
DX: J18.9 Pneumonia, unspecified organism (principal); E46 Unspecified protein-calorie malnutrition; G93.49 Other encephalopathy; J20.9 Acute bronchitis, unspecified; R13.10 Dysphagia, unspecified; Z93.1 Gastrostomy status; Q90.9 Down syndrome, unspecified; E03.9 Hypothyroidism, unspecified; G40.909 Epilepsy, unspecified, not intractable, without status epilepticus; D72.829 Elevated white blood cell count, unspecified; Z68.22 Body mass index [BMI] 22.0-22.9, adult; F41.9 Anxiety disorder, unspecified; F32.89 Other specified depressive episodes
CPT/HCPCS: 36415; 71045; 80048; 80053; 80069; 80202; 80299; 81003; 82550; 82962; 83605; 83735; 84100; 84443; 84484; 85025; 87040; 87070; 87081; 87181; 87205; 93005; 94640; 94664; 94760; 96365; 96375; 97802; 99285; J1815

== ENCOUNTER 2020-05-30 11:24 | Inpatient (IN) | payer MEDICARE, OTHER ==
[~2020-05-30] VITALS: Ht 160 cm; Wt 76.5 kg
[~2020-05-30 11:24] MED LIST changes: +ATIVAN1 MG ORAL; +CEFEPIME-D2 GM/50 ML IVPB; +KEPPRA100 MG/1 M IV; +MULTIVITAMINS1 EAC8 GT; -MULTIVITAMINS1 EAC8 ORAL; +TYLENOL325 M1 PO; +VANCOMYCIN HCL1 G1 IV
--- NOTE | 2020-05-30 11:30 | Emergency Room Report ---
History of Present Illness General Chief Complaint: Dyspnea/Respdistress Source: Patient, Medical Record Present Illness HPI Patient is a 59-year-old female [facility] decreased oxygen saturation beginning earlier in the day. Prior history of Down syndrome. Patient had been nonverbal at baseline. Reportedly had diminished oxygen since earlier in the day. No response to albuterol. Had been increased rales per EMS. She was started on supplemental oxygen via nonrebreather. Reportedly had negative coronavirus testing recently. Allergies: Coded Allergies: No Known Allergies (Unverified , 10/16/18) COVID-19 Screening Contact w/high risk pt: No Experienced COVID-19 symptoms?: No COVID-19 Testing performed [employer]: Yes COVID-19 Screening: Negative COVID-19 COVID-19 Testing Source: 05/18/20 Patient History Past Medical History: see triage record, seizures, other - hypothyroid Past Surgical History: other - gtube Reviewed Nursing Documentation: PMH: Agreed; PSxH: Agreed Nursing Documentation-PMH Past Medical History: No History, Except For Hx Cardiac Problems: No - PVD Hx Diabetes: No - Hypothyroid Hx Cancer: No Hx Gastrointestinal Problems: No - gastrostomy Hx Neurological Problems: Yes - down syndrome Hx Seizures: Yes Hx Speech Problem: Yes Review of Systems All Other Systems: limited - Limited by poor historian Physical Exam Vital Signs Date Time Temp Pulse Resp B/P (MAP) Pulse Ox O2 Delivery O2 Flow Rate FiO2 05/30/20 11:20 99.0 80 16 108/70 (83) 94 Non-Rebreather 15.0 Sp02 EP Interpretation: reviewed, normal General Appearance: alert, moderate distress, Chronically Ill Head: atraumatic ENT: hearing grossly normal, normal voice, other - Large amount of secretions Neck: normal inspection, supple, no bony tend, limited range of motion Respiratory: normal inspection, no respiratory distress, no retraction, no wheezing, rhonchi Cardiovascular #1: regular rate, rhythm, no edema Gastrointestinal: normal inspection, normal bowel sounds, non tender, soft, no guarding, no hernia Genitourinary: no CVA tenderness Musculoskeletal: normal inspection, back normal, normal range of motion Neurologic: alert, responsive, aphasia Psychiatric: normal inspection, judgement/insight normal, mood/affect normal Skin: no rash Procedures Critical Care Time Critical Care Time Patient had a critical medical condition which untreated could potentially result in life or limb threatening injury. Total critical care time excluding procedures approximately 45 minutes. Medical Decision Making Diagnostic Impression: Primary Impression: Pneumonia Additional Impressions: Trisomy 21, Down syndrome Seizure disorder ER Course Patient presented for shortness of breath. Differential included but was not limited to anemia, pneumonia, pneumothorax, myocardial infarction, pericardial effusion, congestive heart failure, acidosis. Because of complexity of patient' s case laboratory tests and imaging studies were ordered.Patient had previous history of hypothyroidism as well as Down syndrome and seizures. Patient was maintained on supplemental oxygen.patient was initially maintained on a nonrebreather. Patient's arterial blood gas showed no evidence of significant AA gradient. Patient was started on simple mask. Chest x-ray showed bilateral interstitial infiltrates right greater than left. Patient was orally suctioned with some improvement in respirations. Patient was admitted for further evaluation and treatment. Dr. Allred was contacted for inpatient management due to covering physician for [facility]. Laboratory Tests Test 05/31/20 06:30 05/31/20 14:10 05/31/20 17:15 05/31/20 23:10 White Blood Count 7.5 K/UL (4.8-10.8) Red Blood Count 3.84 M/UL (4.20-5.40) L Hemoglobin 13.3 G/DL (12.0-16.0) Hematocrit 39.8 % (37.0-47.0) Mean Corpuscular Volume 104 FL (80-99) H Mean Corpuscular Hemoglobin 34.5 PG (27.0-31.0) H Mean Corpuscular Hemoglobin Concent 33.3 G/DL (32.0-36.0) Red Cell Distribution Width 12.0 % (11.6-14.8) Platelet Count 206 K/UL (150-450) Mean Platelet Volume 7.0 FL (6.5-10.1) Neutrophils (%) (Auto) 61.4 % (45.0-75.0) Lymphocytes (%) (Auto) 25.7 % (20.0-45.0) Monocytes (%) (Auto) 10.9 % (1.0-10.0) H Eosinophils (%) (Auto) 1.1 % (0.0-3.0) Basophils (%) (Auto) 0.9 % (0.0-2.0) Sodium Level 135 MMOL/L (136-145) L Potassium Level 4.1 MMOL/L (3.5-5.1) Chloride Level 100 MMOL/L (98-107) Carbon Dioxide Level 28 MMOL/L (21-32) Anion Gap 7 mmol/L (5-15) Blood Urea Nitrogen 11 mg/dL (7-18) Creatinine 0.5 MG/DL (0.55-1.30) L Estimated Glomerular Filtration Rate > 60 mL/min (>60) Glucose Level 106 MG/DL (74-106) Calcium Level 8.5 MG/DL (8.5-10.1) Phosphorus Level 3.7 MG/DL (2.5-4.9) Albumin 2.1 G/DL (3.4-5.0) L Microbiology Date/Time Source Procedure Growth Status 05/31/20 14:10 Nasopharynx SARS-CoV-2 RdRp Gene Assay - Final Complete Last Vital Signs Date Time Temp Pulse Resp B/P (MAP) Pulse Ox O2 Delivery O2 Flow Rate FiO2 05/30/20 11:20 99.0 80 16 108/70 (83) 94 Non-Rebreather 15.0 Status: unchanged Disposition: ADMITTED INPATIENT Condition: Stable Jose Jensen MD May 30, 2020 11:30
[2020-05-30 11:45] VITALS: BP 108/70
--- NOTE | 2020-05-30 11:45 | NUR ---
ED Nurse Note: Patient was brought in by RA [facility] from [facility] due to respiratory distress started 0830am this morning. Patient reported to desat down to 86 % on room air. Pt came in with NR at 15 LPM sats 94% upon ED arrival. Patient has flat affect upon arrival, was placed in Trauma room, connected to the monitor, ER MD at bed side.
[2020-05-30] MEDS ORDERED: BACLOFEN10 MG GT (11:47)
[2020-05-30] MEDS ORDERED: DUONEB 0.5-3(2.53 ML HHN (11:47)
[2020-05-30] MEDS ORDERED: VITAMIN C500 M1 GT (11:47)
[2020-05-30] MEDS ORDERED: VALPROIC A250 MG/51 GT (11:47)
[2020-05-30] MEDS ORDERED: ACETAMINOPHEN325 M1 GT (11:47)
--- NOTE | 2020-05-30 11:55 | NUR ---
ED Nurse Note: RT @ bedside
[2020-05-30 12:06] LABS: BASOPHILS % (AUTO) 1.4 % (0.0-2.0); EOSINOPHILS % (AUTO) 0.3 % (0.0-3.0); HEMATOCRIT 44.3 % (37.0-47.0); HEMOGLOBIN 14.7 G/DL (12.0-16.0); LYMPHOCYTES % (AUTO) 34.1 % (20.0-45.0); MEAN CORPUSCULAR VOLUME 104 FL (80-99); NEUTROPHILS % (AUTO) 50.3 % (45.0-75.0); PLATELET COUNT 250 K/UL (150-450); RED BLOOD COUNT 4.28 M/UL (4.20-5.40); RED CELL DISTRIBUTION WIDTH 12.2 % (11.6-14.8); WHITE BLOOD COUNT 7.8 K/UL (4.8-10.8)
[2020-05-30 12:07] LABS: ANION GAP 6 mmol/L (5-15); BLOOD UREA NITROGEN 11 mg/dL (7-18); CALCIUM 8.6 MG/DL (8.5-10.1); CARBON DIOXIDE 28 MMOL/L (21-32); CHLORIDE 97 MMOL/L (98-107); CREATININE 0.5 MG/DL (0.55-1.30); POTASSIUM 3.8 MMOL/L (3.5-5.1); SODIUM 131 MMOL/L (136-145)
[2020-05-30 12:21] LABS: ALANINE AMINOTRANSFERASE 24 U/L (12-78); ALBUMIN 2.3 G/DL (3.4-5.0); ALBUMIN/GLOBULIN RATIO 0.5 (1.0-2.7); ALKALINE PHOSPHATASE 63 U/L (46-116); ASPARTATE AMINO TRANSFERASE 20 U/L (15-37); BILIRUBIN,TOTAL 0.3 MG/DL (0.2-1.0); CKMB < 0.5 NG/ML (0.0-3.6); CREATINE KINASE 31 U/L (26-308); PHOSPHORUS 3.3 MG/DL (2.5-4.9)
[2020-05-30 12:28] LABS: APPEARANCE,URINE CLEAR; BILIRUBIN, URINE NEGATIVE (NEGATIVE); COLOR,URINE PALE YELLOW; GLUCOSE, URINE (UA) NEGATIVE (NEGATIVE); KETONES,URINE NEGATIVE (NEGATIVE); LEUKOCYTE ESTERASE ,URINE 1+ (NEGATIVE); NITRITE,URINE NEGATIVE (NEGATIVE); PH,URINE 6 (4.5-8.0); PROTEIN,URINE 1+ (NEGATIVE); UROBILINOGEN,URINE NORMAL MG/DL (0.0-1.0)
--- NOTE | 2020-05-30 12:38 | Diagnostic Imaging Report ---
EXAM: XR Chest, 1 View CLINICAL HISTORY: SOB TECHNIQUE: Frontal view of the chest. COMPARISON: No relevant prior studies available. FINDINGS: Lungs: Reduced lung volumes. Patchy bilateral pulmonary opacities. Pleural space: Unremarkable. No pneumothorax. Heart: Large cardiomediastinal silhouette. Mediastinum: See above. Bones/joints: No acute fracture. IMPRESSION: Reduced lung volumes. Patchy bilateral predominantly interstitial pulmonary opacities. Could be from edema and/or pneumonia. There is a broader differential.
[2020-05-30] MEDS ORDERED: Cefepime HCl 1 GM in D5W 55 ML IVPB ONE (12:45)
[2020-05-30] MEDS ORDERED: Vancomycin 1 GM in NS 275 ML IVPB ONE (12:45)
--- NOTE | 2020-05-30 13:26 | NUR ---
ED Nurse Note: reflex lactic sent to lab
--- NOTE | 2020-05-30 13:43 | NUR ---
ED Nurse Note: per Dr. Jensen' orders, placed pt on 5 L simple mask. O2 sat 97%
--- NOTE | 2020-05-30 13:45 | NUR ---
ED Nurse Note: Recived repot from TAI Giron. Patient resting in the bed, with eyes close, VSS at this time.
--- NOTE | 2020-05-30 14:55 | NUR ---
ED Nurse Note: Patient was swabed for MRSA, VRE CRE, sent to lab
--- NOTE | 2020-05-30 15:15 | NUR ---
ED Nurse Note: Patient was admited to SDU unit due to pneumonia. Patient wa transfered to the unit via gurney by ACLS protocol. Patient has no bellongings. Patient AAO x0, VSS at this time, no skin issue found. Patient was transfered with Vancomycin 1.5 g drip.
--- NOTE | 2020-05-30 16:00 | NUR ---
NURSE NOTES: Received report from TAI Velazquez. Patient arrived to unit with simple mask on 5L SpO2 95%, patient noted with crackles - per ER nurse patient deep suctioned in ER multiple times with purulent drainage. Sputum culture sent to lab for analysis. Patient noted with medical history of down syndrome, able to open eyes, unable to answer questions at this time. Observed no presence of pain or discomfort. No belongings noted. Patient noted admitted with bilateral heel redness, bilateral feet and toes redness and dryness, sacral skin integrity is intact. Wound pictures taken, wound care plan entered, wound care nurse made aware and will be assessed tomorrow. Pericare rendered, void x 1, soft BM x 1. Patient provided purwick. Charge nurse at bedside for assessments. Dr. Allred aware of admission and admission orders to be entered by Dr. Allred. Will continue to monitor patient.
[2020-05-30] MEDS ORDERED: Miralax 17gm pkt ORAL PRN (16:15)
[2020-05-30] MEDS ORDERED: Albuterol/Ipratropium 3ml neb HHN PRN (16:15)
--- NOTE | 2020-05-30 16:41 | Consultation ---
History of Present Illness General Date patient seen: May 30, 2020 Chief Complaint: Dyspnea/Respdistress Present Illness HPI 59-year-old female with hx of trisomy 21, [facility] resident present ed to ER for decreased oxygen saturation. Patient had been nonverbal at baseline. Had been increased rales per EMS. She was started on supplemental oxygen via nonrebreather. Allergies: Coded Allergies: No Known Allergies (Unverified , 10/16/18) Medication History Scheduled Acetaminophen* (Acetaminophen 325MG Tablet*), 640 MG GT DAILY, (Reported) Ascorbic Acid* (Vitamin C*), 500 MG GT DAILY, (Reported) Ascorbic Acid* (Vitamin C*), 500 MG GT DAILY, (Reported) Baclofen* (Baclofen*), 10 MG GT Q8HR, (Reported) Cefepime Hcl/D5w (Cefepime-Dextrose 2 Gm/50 Ml), 2 GM IVPB EVERY 12 HOURS, ( Reported) Docusate Sodium* (Docusate Sodium*), 100 MG GT TWICE A DAY, (Reported) Ipratropium/Albuterol Sulfate (DuoNeb 0.5-3(2.5)mg/3ml), 3 ML HHN Q4HR, ( Reported) Levetiracetam (Keppra), 750 MG GT TWICE A DAY, (Reported) Levothyroxine Sodium* (Levothyroxine Sodium*), 75 MCG GT DAILY, (Reported) Levothyroxine Sodium* (Levothyroxine Sodium*), 125 MCG ORAL DAILY@0630 Levothyroxine Sodium* (Levothyroxine Sodium*), 125 MCG ORAL DAILY, (Reported) Lorazepam* (Ativan*), 0.5 MG ORAL THREE TIMES A DAY, (Reported) Lorazepam* (Ativan*), 1 MG ORAL BEDTIME, (Reported) Magnesium Hydroxide* (Milk Of Magnesia*), 30 ML ORAL DAILY, (Reported) Magnesium Hydroxide* (Milk Of Magnesia*), 30 ML ORAL DAILY, (Reported) Multivitamin With Minerals (Multivitamins With Minerals*), 1 TAB ORAL DAILY, ( Reported) Polyethylene Glycol 3350* (Miralax*), 17 GM ORAL DAILY, (Reported) Vancomycin Hcl (Vancomycin Hcl), 1 GM IV Q12HR, (Reported) Vitamin D (Vitamin D3), 100 UNITS GT DAILY, (Reported) Scheduled PRN Acetaminophen* (Acetaminophen 325MG Tablet*), 650 MG GT Q4H PRN for Mild Pain ( Pain Scale 1-3), (Reported) Guaifenesin/Codeine Phos* (Robitussin Ac*), 1 TSP ORAL Q4H PRN for For Cough, ( Reported) Miscellaneous Medications Acetaminophen (Tylenol), 325 MG PO, (Reported) Calcium Carbonate/Vitamin D3 (Calcium 500 + D Tablet), 1 EACH PO, (Reported) Divalproex Sodium (Depakote Sprinkle), 500 MG PO, (Reported) Levetiracetam (Keppra), 500 MG IV, (Reported) Valproate Sodium (Valproic Acid), 500 MG GT, (Reported) Patient History Healthcare decision maker Resuscitation status Advanced Directive on File Past Medical/Surgical History Past Medical/Surgical History: (1) Trisomy 21, Down syndrome (2) Seizure disorder (3) Hypothyroidism Review of Systems All Other Systems: negative except mentioned in HPI Physical Exam General Appearance: thin Lines, tubes and drains: peripheral HEENT: normocephalic, atraumatic Neck: non-tender, normal alignment Respiratory/Chest: chest wall non-tender, lungs clear Breasts: no masses Cardiovascular/Chest: normal peripheral pulses Abdomen: normal bowel sounds Last 24 Hour Vital Signs Date Time Temp Pulse Resp B/P (MAP) Pulse Ox O2 Delivery O2 Flow Rate FiO2 05/30/20 15:15 98.8 67 22 99/65 99 Simple Mask 6.0 05/30/20 11:45 80 16 Non-Rebreather 15.0 05/30/20 11:45 99.0 87 16 108/70 94 Non-Rebreather 15.0 05/30/20 11:20 99.0 80 16 108/70 (83) 94 Non-Rebreather 15.0 Laboratory Tests Test 05/30/20 11:40 05/30/20 11:50 05/30/20 12:18 05/30/20 13:20 White Blood Count 7.8 K/UL (4.8-10.8) Red Blood Count 4.28 M/UL (4.20-5.40) Hemoglobin 14.7 G/DL (12.0-16.0) Hematocrit 44.3 % (37.0-47.0) Mean Corpuscular Volume 104 FL (80-99) H Mean Corpuscular Hemoglobin 34.2 PG (27.0-31.0) H Mean Corpuscular Hemoglobin Concent 33.1 G/DL (32.0-36.0) Red Cell Distribution Width 12.2 % (11.6-14.8) Platelet Count 250 K/UL (150-450) Mean Platelet Volume 6.7 FL (6.5-10.1) Neutrophils (%) (Auto) 50.3 % (45.0-75.0) Lymphocytes (%) (Auto) 34.1 % (20.0-45.0) Monocytes (%) (Auto) 14.0 % (1.0-10.0) H Eosinophils (%) (Auto) 0.3 % (0.0-3.0) Basophils (%) (Auto) 1.4 % (0.0-2.0) Prothrombin Time 11.0 SEC (9.30-11.50) Prothromb Time International Ratio 1.0 (0.9-1.1) Activated Partial Thromboplast Time 27 SEC (23-33) Sodium Level 131 MMOL/L (136-145) L Potassium Level 3.8 MMOL/L (3.5-5.1) Chloride Level 97 MMOL/L (98-107) L Carbon Dioxide Level 28 MMOL/L (21-32) Anion Gap 6 mmol/L (5-15) Blood Urea Nitrogen 11 mg/dL (7-18) Creatinine 0.5 MG/DL (0.55-1.30) L Estimat Glomerular Filtration Rate > 60 mL/min (>60) Glucose Level 119 MG/DL (74-106) H Lactic Acid Level 2.30 mmol/L (0.4-2.0) H 2.20 mmol/L (0.66-2.22) Calcium Level 8.6 MG/DL (8.5-10.1) Phosphorus Level 3.3 MG/DL (2.5-4.9) Magnesium Level 2.2 MG/DL (1.8-2.4) Total Bilirubin 0.3 MG/DL (0.2-1.0) Aspartate Amino Transf (AST/SGOT) 20 U/L (15-37) Alanine Aminotransferase (ALT/SGPT) 24 U/L (12-78) Alkaline Phosphatase 63 U/L (46-116) Total Creatine Kinase 31 U/L (26-308) Creatine Kinase MB < 0.5 NG/ML (0.0-3.6) Creatine Kinase MB Relative Index 1.6 Troponin I 0.025 ng/mL (0.000-0.056) Pro-B-Type Natriuretic Peptide 296 pg/mL (0-125) H Total Protein 7.1 G/DL (6.4-8.2) Albumin 2.3 G/DL (3.4-5.0) L Globulin 4.8 g/dL Albumin/Globulin Ratio 0.5 (1.0-2.7) L Urine Color Pale yellow Urine Appearance Clear Urine pH 6 (4.5-8.0) Urine Specific [place] 1.015 (1.005-1.035) Urine Protein 1+ (NEGATIVE) H Urine Glucose (UA) Negative (NEGATIVE) Urine Ketones Negative (NEGATIVE) Urine Blood 1+ (NEGATIVE) H Urine Nitrite Negative (NEGATIVE) Urine Bilirubin Negative (NEGATIVE) Urine Urobilinogen Normal MG/DL (0.0-1.0) Urine Leukocyte Esterase 1+ (NEGATIVE) H Urine RBC 0-2 /HPF (0 - 2) Urine WBC 10-15 /HPF (0 - 2) H Urine Squamous Epithelial Cells Occasional /LPF Urine Bacteria Occasional /HPF (NONE) Arterial Blood pH 7.350 (7.350-7.450) Arterial Blood Partial Pressure CO2 44.7 mmHg (35.0-45.0) Arterial Blood Partial Pressure O2 306.4 mmHg (75.0-100.0) H Arterial Blood HCO3 24.1 mmol/L (22.0-26.0) Arterial Blood Oxygen Saturation 99.1 % (95-100) Arterial Blood Base Excess -1.6 (-2-2) Jonathan Test Positive Microbiology Date/Time Source Procedure Growth Status 05/30/20 11:40 Nasopharynx SARS-CoV-2 RdRp Gene Assay - Final Complete 05/30/20 11:40 Nasal Nares - Final Complete 05/30/20 11:40 Nasal Nares - Final Complete Height (Feet): 5 Height (Inches): 3.00 Weight (Pounds): 140 Medications Current Medications Medications (Trade) Dose Ordered Sig/Katy Route PRN Reason Start Time Stop Time Status Last Admin Dose Admin Acetaminophen (Tylenol) 650 mg Q4H PRN ORAL FEVER 05/30/20 16:15 06/29/20 16:14 Albuterol/ Ipratropium (Albuterol/ Ipratropium) 3 ml Q4H PRN HHN Shortness of Breath 05/30/20 16:15 06/04/20 16:14 Baclofen (Lioresal) 10 mg Q8HR GT 05/30/20 22:00 06/29/20 21:59 Dextrose (Dextrose 50%) 25 ml Q30M PRN IV Hypoglycemia 05/30/20 16:15 08/28/20 16:14 Dextrose (Dextrose 50%) 50 ml Q30M PRN IV Hypoglycemia 05/30/20 16:15 08/28/20 16:14 Heparin Sodium (Porcine) (Heparin 5000 units/ml) 5,000 units EVERY 12 HOURS SUBQ 05/30/20 21:00 07/14/20 20:59 Levothyroxine Sodium (Synthroid) 75 mcg DAILY GT 05/31/20 09:00 06/30/20 08:59 Ondansetron HCl (Zofran) 4 mg Q6H PRN IVP Nausea & Vomiting 05/30/20 16:15 06/29/20 16:14 Pantoprazole (Protonix) 40 mg DAILY IV 05/31/20 09:00 06/30/20 08:59 Piperacillin Sod/ Tazobactam Sod 3.375 gm/Sodium Chloride 110 ml @ 220 mls/hr EVERY 8 HOURS IVPB 05/30/20 22:00 06/06/20 21:59 Polyethylene Glycol (Miralax) 17 gm DAILYPRN PRN ORAL Constipation 05/30/20 16:15 06/29/20 16:14 Temazepam (Restoril) 15 mg HSPRN PRN ORAL Insomnia 05/30/20 16:15 06/06/20 16:14 Valproic Acid (Depakene) 500 mg EVERY 8 HOURS GT 05/30/20 22:00 06/29/20 21:59 Vancomycin HCl 1 gm/Dextrose 275 ml @ 183.3 mls/ hr Q12H IVPB 05/31/20 00:00 06/05/20 00:00 Assessment/Plan Problem List: (1) Respiratory distress ICD Codes: R06.03 - Acute respiratory distress SNOMED: 757911436 (2) Seizure disorder ICD Codes: G40.909 - Epilepsy, unspecified, not intractable, without status epilepticus SNOMED: 162723613 (3) Hypothyroidism ICD Codes: E03.9 - Hypothyroidism, unspecified SNOMED: 23066059 (4) Trisomy 21, Down syndrome ICD Codes: Q90.9 - Down syndrome, unspecified SNOMED: 75208077 (5) Encephalopathy chronic ICD Codes: G93.49 - Other encephalopathy SNOMED: 32546241 Assessment/Plan: respiratory treatment check sputum iv abx iv fluids seizure precaution ortiz culture resume gtube feeding dvt prophylaxis Elayne Allred MD May 30, 2020 16:41
[2020-05-30] MEDS ORDERED: Valproic Acid 250mg/5ml Liquid GT SCH (18:00)
--- NOTE | 2020-05-30 19:10 | NUR ---
NURSE NOTES: Received report from Roby Jernigan RN. patient alert x 1-2, eyes open tracks people, afebrile and has no respiratory distress noted. On Venturi mask wt FiO2 35 % saturating well at 98-100%. With GT on Jevity 1.2 at 30cc/hr intact, no residual and no sediments noted. With right hand and left hand 20G IV lines intact, patent and asymptomatic. With purewick connected to urine bag intact, no sediments and draining well. HOB elevated. Call light within reach. Bed rails are up and padded, wheels are locked. Continue plan of care
--- NOTE | 2020-05-30 19:25 | NUR ---
NURSE HAND-OFF REPORT: Important Events on Shift: Patient Status: Stable Diet: Jevity 1.2 30 ml/hr Pending Orders: None. Pending Results/Labs:None. Pending MD notification:None. Latest Vital Signs: Temperature 97.3 , Pulse 79 , B/P 96 /59 , Respiratory Rate 24 , O2 SAT 100 , Simple Mask, O2 Flow Rate 6.0 . Vital Sign Comment: Stable EKG Rhythm: Sinus Rhythm Rhythm change?: N MD Notified?: - MD Response: Latest Osorio Fall Score: 60 Fall Risk: High Risk Safety Measures: Call light Within Reach, Bed Alarm Zone 2, Side Rails Side Rails x2, Bed position Low and Locked. Fall Precautions: Yellow Socks Yellow Gown Door Sign Patient Fall Education Report given to TAI Sood.
--- NOTE | 2020-05-30 19:58 | NUR ---
NURSE NOTES: Placed a call and left a voice mail to Dr Allred regarding patient's BP 96/59. Pt is asleep at this time. Elevated foot of the bed. Awaiting for call back for any orders.
[2020-05-30 20:00] VITALS: BP 96/59
[2020-05-30] MEDS: Valproic Acid 250mg/5ml Liquid GT SCH (21:25)
[2020-05-30] MEDS: Piperacillin/Tazobactam 3.375 GM in NS 110 ML IVPB SCH (21:25)
[2020-05-30] MEDS: Heparin 5000 units/ml inj SUBQ SCH (21:26)
[2020-05-30] MEDS: Vancomycin 1 GM in D5W 275 ML IVPB SCH (23:31)
[2020-05-31] VITALS (7 sets, daily range): BP systolic 100–116; BP diastolic 52–79
--- NOTE | 2020-05-31 01:30 | NUR ---
NURSE NOTES: Patient was given partial bed bath, gown and linen changed. Pt tolerated well withotu discomforts. BP within normal limits too. Continue to monitor the patient.
[2020-05-31] MEDS: Valproic Acid 250mg/5ml Liquid GT SCH ×3 (05:06→21:37)
[2020-05-31] MEDS: Piperacillin/Tazobactam 3.375 GM in NS 110 ML IVPB SCH ×3 (05:07→21:38)
--- NOTE | 2020-05-31 07:15 | NUR ---
NURSE HAND-OFF REPORT: Important Events on Shift: Suction oral secretions PRN Patient Status: stable Diet: Jevity 1.2 at 30cc/hr Pending Orders: n Pending Results/Labs: n Pending MD notification: n Latest Vital Signs: Temperature 97.9 , Pulse 79 , B/P 112 /79 , Respiratory Rate 20 , O2 SAT 97 , Venturi Mask, O2 Flow Rate 5.0 . Vital Sign Comment: n EKG Rhythm: Sinus Rhythm Rhythm change?: N MD Notified?: - MD Response: Latest Osorio Fall Score: 60 Fall Risk: High Risk Safety Measures: Call light Within Reach, Bed Alarm Zone 1, Side Rails Side Rails x3, Bed position Low and Locked. Fall Precautions: Yellow Socks Yellow Gown Door Sign Patient Fall Education Report given to Soren Billings RN.
[2020-05-31 07:37] LABS: BASOPHILS % (AUTO) 0.9 % (0.0-2.0); EOSINOPHILS % (AUTO) 1.1 % (0.0-3.0); HEMATOCRIT 39.8 % (37.0-47.0); HEMOGLOBIN 13.3 G/DL (12.0-16.0); LYMPHOCYTES % (AUTO) 25.7 % (20.0-45.0); MEAN CORPUSCULAR VOLUME 104 FL (80-99); MONOCYTES % (AUTO) 10.9 % (1.0-10.0); NEUTROPHILS % (AUTO) 61.4 % (45.0-75.0); PLATELET COUNT 206 K/UL (150-450); RED BLOOD COUNT 3.84 M/UL (4.20-5.40); WHITE BLOOD COUNT 7.5 K/UL (4.8-10.8)
[2020-05-31 08:08] LABS: ALBUMIN 2.1 G/DL (3.4-5.0); ANION GAP 7 mmol/L (5-15); BLOOD UREA NITROGEN 11 mg/dL (7-18); CALCIUM 8.5 MG/DL (8.5-10.1); CARBON DIOXIDE 28 MMOL/L (21-32); CHLORIDE 100 MMOL/L (98-107); CREATININE 0.5 MG/DL (0.55-1.30); PHOSPHORUS 3.7 MG/DL (2.5-4.9); POTASSIUM 4.1 MMOL/L (3.5-5.1); SODIUM 135 MMOL/L (136-145)
--- NOTE | 2020-05-31 08:49 | NUR ---
NURSE NOTES: pt in bed resting. pt alert to name and non verbal. pt is very congested, contacted RT to suctioned pt. continue grooming assistant, no signs of cardiac or respiratory distress at this time. Bed locked and in lowest position, call light within reach. Will continue to monitor
--- NOTE | 2020-05-31 09:10 | NUR ---
RD ASSESSMENT & RECOMMENDATIONS SEE CARE ACTIVITY FOR COMPLETE ASSESSMENT DAILY ESTIMATED NEEDS: Needs based on TF BOARDING SPECIALIST, pulmonary 50kg abw 22-27 kcals/kg 8202-0196 total kcals 1.25-1.5 g protein/kg 63-75 g total protein 25-30 mL/kg 4064-2204 total fluid mLs NUTRITION DIAGNOSIS: Swallowing difficulty r/t dysphagia as evidenced by pt w/ Downs Syndrome, PEG dep for all nutritional needs. (CURRENT TF: Jevity 1.2 @30ml/hr) ENTERAL NUTRITION RECOMMENDATIONS: JEVITY 1.2 @50ml/hr x22 hrs + Prosource x1 daily to provide 1100ml, 1320 kcal, 61g + 11g prot, 888ml free H2O - REC TO INCREASE RATE AND TF RUN TIME TO 22 HRS PER DAY TO BETTER MEET EST NEEDS - Hold TF 1 hr before and after synthroid meds - Flush per , HOB over 30 degrees. ADDITIONAL RECOMMENDATIONS: 1) Ht of 61 inches per SNF; recalibrate bed scale for accurate CBW 2) Monitor BG, lytes, and tolerance TF 3) Weekly weights on Calibrated bed scale 4) F/up with WC eval, add LEIDY in 4oz H2O BID via GT .
[2020-05-31] MEDS: Pantoprazole Inj IV SCH (09:11)
[2020-05-31] MEDS: Heparin 5000 units/ml inj SUBQ SCH ×2 (09:18→21:36)
[2020-05-31] MEDS: Vancomycin 1 GM in D5W 275 ML IVPB SCH (12:07)
--- NOTE | 2020-05-31 12:21 | NUR ---
NURSE NOTES: notified doctor Paul about pt sputum results. He ordered a 2nd covid test for pt. today.
--- NOTE | 2020-05-31 12:50 | Consultation ---
History of Present Illness General Chief Complaint: Dyspnea/Respdistress Present Illness [facility] # [id number] Allergies: Coded Allergies: No Known Allergies (Unverified , 10/16/18) Medication History Scheduled Acetaminophen* (Acetaminophen 325MG Tablet*), 640 MG GT DAILY, (Reported) Ascorbic Acid* (Vitamin C*), 500 MG GT DAILY, (Reported) Ascorbic Acid* (Vitamin C*), 500 MG GT DAILY, (Reported) Baclofen* (Baclofen*), 10 MG GT Q8HR, (Reported) Cefepime Hcl/D5w (Cefepime-Dextrose 2 Gm/50 Ml), 2 GM IVPB EVERY 12 HOURS, ( Reported) Docusate Sodium* (Docusate Sodium*), 100 MG GT TWICE A DAY, (Reported) Ipratropium/Albuterol Sulfate (DuoNeb 0.5-3(2.5)mg/3ml), 3 ML HHN Q4HR, ( Reported) Levetiracetam (Keppra), 750 MG GT TWICE A DAY, (Reported) Levothyroxine Sodium* (Levothyroxine Sodium*), 75 MCG GT DAILY, (Reported) Levothyroxine Sodium* (Levothyroxine Sodium*), 125 MCG ORAL DAILY@0630 Levothyroxine Sodium* (Levothyroxine Sodium*), 125 MCG ORAL DAILY, (Reported) Lorazepam* (Ativan*), 0.5 MG ORAL THREE TIMES A DAY, (Reported) Lorazepam* (Ativan*), 1 MG ORAL BEDTIME, (Reported) Magnesium Hydroxide* (Milk Of Magnesia*), 30 ML ORAL DAILY, (Reported) Magnesium Hydroxide* (Milk Of Magnesia*), 30 ML ORAL DAILY, (Reported) Multivitamin With Minerals (Multivitamins With Minerals*), 1 TAB ORAL DAILY, ( Reported) Polyethylene Glycol 3350* (Miralax*), 17 GM ORAL DAILY, (Reported) Vancomycin Hcl (Vancomycin Hcl), 1 GM IV Q12HR, (Reported) Vitamin D (Vitamin D3), 100 UNITS GT DAILY, (Reported) Scheduled PRN Acetaminophen* (Acetaminophen 325MG Tablet*), 650 MG GT Q4H PRN for Mild Pain ( Pain Scale 1-3), (Reported) Guaifenesin/Codeine Phos* (Robitussin Ac*), 1 TSP ORAL Q4H PRN for For Cough, ( Reported) Miscellaneous Medications Acetaminophen (Tylenol), 325 MG PO, (Reported) Calcium Carbonate/Vitamin D3 (Calcium 500 + D Tablet), 1 EACH PO, (Reported) Divalproex Sodium (Depakote Sprinkle), 500 MG PO, (Reported) Levetiracetam (Keppra), 500 MG IV, (Reported) Valproate Sodium (Valproic Acid), 500 MG GT, (Reported) Patient History Healthcare decision maker Resuscitation status Advanced Directive on File Physical Exam Last 24 Hour Vital Signs Date Time Temp Pulse Resp B/P (MAP) Pulse Ox O2 Delivery O2 Flow Rate FiO2 05/31/20 12:00 35 05/31/20 12:00 Venturi Mask 5.0 05/31/20 10:34 Venturi Mask 5.0 05/31/20 08:15 98 Nasal Cannula 436.0 36 05/31/20 08:14 63 20 98 Nasal Cannula 4.0 36 05/31/20 08:00 70 05/31/20 08:00 97.7 68 18 100/62 (75) 98 05/31/20 08:00 35 05/31/20 08:00 Venturi Mask 5.0 05/31/20 04:00 Venturi Mask 5.0 05/31/20 04:00 35 05/31/20 04:00 97.9 79 20 112/79 (90) 97 05/31/20 03:54 82 05/31/20 00:00 Venturi Mask 5.0 05/31/20 00:00 97.7 77 20 116/54 (74) 100 05/30/20 23:39 61 05/30/20 21:00 97 Venturi Mask 6.0 35 05/30/20 20:00 Venturi Mask 5.0 05/30/20 20:00 35 05/30/20 20:00 97.3 60 24 96/59 (71) 100 05/30/20 20:00 57 20 97 Venturi Mask 6.0 35 05/30/20 19:33 61 05/30/20 16:51 Venturi Mask 6.0 05/30/20 16:00 79 05/30/20 15:15 98.8 67 22 99/65 99 Simple Mask 6.0 Intake and Output 05/30/20 05/31/20 19:00 07:00 Intake Total 1 ml 1005.0 ml Output Total 800 ml Balance 1 ml 205.0 ml Intake Oral 1 ml Free Water 150 ml IV Total 495.0 ml Tube Feeding 360 ml Output Urine Total 800 ml # Voids 1 # Bowel Movements 2 Laboratory Tests Test 05/30/20 13:20 05/31/20 06:30 Lactic Acid Level 2.20 mmol/L (0.66-2.22) White Blood Count 7.5 K/UL (4.8-10.8) Red Blood Count 3.84 M/UL (4.20-5.40) L Hemoglobin 13.3 G/DL (12.0-16.0) Hematocrit 39.8 % (37.0-47.0) Mean Corpuscular Volume 104 FL (80-99) H Mean Corpuscular Hemoglobin 34.5 PG (27.0-31.0) H Mean Corpuscular Hemoglobin Concent 33.3 G/DL (32.0-36.0) Red Cell Distribution Width 12.0 % (11.6-14.8) Platelet Count 206 K/UL (150-450) Mean Platelet Volume 7.0 FL (6.5-10.1) Neutrophils (%) (Auto) 61.4 % (45.0-75.0) Lymphocytes (%) (Auto) 25.7 % (20.0-45.0) Monocytes (%) (Auto) 10.9 % (1.0-10.0) H Eosinophils (%) (Auto) 1.1 % (0.0-3.0) Basophils (%) (Auto) 0.9 % (0.0-2.0) Sodium Level 135 MMOL/L (136-145) L Potassium Level 4.1 MMOL/L (3.5-5.1) Chloride Level 100 MMOL/L (98-107) Carbon Dioxide Level 28 MMOL/L (21-32) Anion Gap 7 mmol/L (5-15) Blood Urea Nitrogen 11 mg/dL (7-18) Creatinine 0.5 MG/DL (0.55-1.30) L Estimat Glomerular Filtration Rate > 60 mL/min (>60) Glucose Level 106 MG/DL (74-106) Calcium Level 8.5 MG/DL (8.5-10.1) Phosphorus Level 3.7 MG/DL (2.5-4.9) Albumin 2.1 G/DL (3.4-5.0) L Microbiology Date/Time Source Procedure Growth Status 05/30/20 17:29 Sputum Gram Stain - Final Resulted 05/30/20 17:29 Sputum Sputum Culture Pending Resulted Height (Feet): 5 Height (Inches): 3.00 Weight (Pounds): 140 Medications Current Medications Medications (Trade) Dose Ordered Sig/Katy Route PRN Reason Start Time Stop Time Status Last Admin Dose Admin Acetaminophen (Tylenol) 650 mg Q4H PRN ORAL FEVER 05/30/20 16:15 06/29/20 16:14 Albuterol/ Ipratropium (Albuterol/ Ipratropium) 3 ml Q4H PRN HHN Shortness of Breath 05/30/20 16:15 06/04/20 16:14 Baclofen (Lioresal) 10 mg Q8HR GT 05/30/20 22:00 06/29/20 21:59 05/31/20 05:06 Dextrose (Dextrose 50%) 25 ml Q30M PRN IV Hypoglycemia 05/30/20 16:15 08/28/20 16:14 Dextrose (Dextrose 50%) 50 ml Q30M PRN IV Hypoglycemia 05/30/20 16:15 08/28/20 16:14 Heparin Sodium (Porcine) (Heparin 5000 units/ml) 5,000 units EVERY 12 HOURS SUBQ 05/30/20 21:00 07/14/20 20:59 05/31/20 09:18 Levothyroxine Sodium (Synthroid) 75 mcg DAILY GT 05/31/20 09:00 06/30/20 08:59 05/31/20 09:11 Ondansetron HCl (Zofran) 4 mg Q6H PRN IVP Nausea & Vomiting 05/30/20 16:15 06/29/20 16:14 Pantoprazole (Protonix) 40 mg DAILY IV 05/31/20 09:00 06/30/20 08:59 05/31/20 09:11 Piperacillin Sod/ Tazobactam Sod 3.375 gm/Sodium Chloride 110 ml @ 220 mls/hr EVERY 8 HOURS IVPB 05/30/20 22:00 06/06/20 21:59 05/31/20 05:07 Polyethylene Glycol (Miralax) 17 gm DAILYPRN PRN ORAL Constipation 05/30/20 16:15 06/29/20 16:14 Temazepam (Restoril) 15 mg HSPRN PRN ORAL Insomnia 05/30/20 16:15 06/06/20 16:14 Valproic Acid (Depakene) 500 mg EVERY 8 HOURS GT 05/30/20 22:00 06/29/20 21:59 05/31/20 05:06 Vancomycin HCl 1 gm/Dextrose 275 ml @ 183.3 mls/ hr Q12H IVPB 05/31/20 00:00 06/05/20 00:00 05/31/20 12:07 Mitul Tucker MD May 31, 2020 12:50
--- NOTE | 2020-05-31 14:51 | NUR ---
CASE MANAGEMENT:REVIEW BIBA FROM [facility] CC: SOB SATS 86% ON RA SI: ACUTE RESPIRATORY DISTRESS 98.9 80 16 99/65 94% ON 15L NON REBREATHER NA-131 IS: 1L NS BOLUS IV VANCOMYCIN X1 IV CEFEPIME X1 IV FLAGYL X1 URINE CX COVID SWAB CXR : TO SDU
[2020-05-31] MEDS: Azithromycin 500 MG in D5W 275 ML IV SCH (15:44)
--- NOTE | 2020-05-31 18:09 | Pulmonology Progress Note ---
Subjective ROS Limited/Unobtainable: No Constitutional: Reports: no symptoms HEENT: Repors: no symptoms Allergies: Coded Allergies: No Known Allergies (Unverified , 10/16/18) Objective Last 24 Hour Vital Signs Date Time Temp Pulse Resp B/P (MAP) Pulse Ox O2 Delivery O2 Flow Rate FiO2 05/31/20 16:57 79 20 99 Venturi Mask 8.0 40 75 20 95 05/31/20 16:00 35 05/31/20 16:00 Venturi Mask 5.0 05/31/20 16:00 97.9 68 18 101/70 (80) 97 05/31/20 12:00 98.1 60 18 109/57 (74) 95 05/31/20 12:00 35 05/31/20 12:00 Venturi Mask 5.0 05/31/20 12:00 64 05/31/20 10:34 Venturi Mask 5.0 05/31/20 08:15 98 Nasal Cannula 436.0 36 05/31/20 08:14 63 20 98 Nasal Cannula 4.0 36 05/31/20 08:00 70 05/31/20 08:00 97.7 68 18 100/62 (75) 98 05/31/20 08:00 35 05/31/20 08:00 Venturi Mask 5.0 05/31/20 04:00 Venturi Mask 5.0 05/31/20 04:00 35 05/31/20 04:00 97.9 79 20 112/79 (90) 97 05/31/20 03:54 82 05/31/20 00:00 Venturi Mask 5.0 05/31/20 00:00 97.7 77 20 116/54 (74) 100 05/30/20 23:39 61 05/30/20 21:00 97 Venturi Mask 6.0 35 05/30/20 20:00 Venturi Mask 5.0 05/30/20 20:00 35 05/30/20 20:00 97.3 60 24 96/59 (71) 100 05/30/20 20:00 57 20 97 Venturi Mask 6.0 35 05/30/20 19:33 61 Intake and Output 05/30/20 05/31/20 19:00 07:00 Intake Total 1 ml 1005.0 ml Output Total 800 ml Balance 1 ml 205.0 ml Intake Oral 1 ml Free Water 150 ml IV Total 495.0 ml Tube Feeding 360 ml Output Urine Total 800 ml # Voids 1 # Bowel Movements 2 General Appearance: WD/WN HEENT: normocephalic, atraumatic Respiratory: chest wall non-tender, lungs clear Cardiovascular: normal peripheral pulses, normal rate Genitourinary: normal external genitalia Extremities: no cyanosis Skin: no rash 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 grossly normal Microbiology Date/Time Source Procedure Growth Status 05/30/20 11:40 Blood Blood Culture - Preliminary Resulted 05/31/20 14:10 Nasopharynx SARS-CoV-2 RdRp Gene Assay - Final Complete 05/30/20 17:29 Sputum Gram Stain - Final Resulted 05/30/20 17:29 Sputum Sputum Culture Pending Resulted 05/30/20 11:40 Nasopharynx SARS-CoV-2 RdRp Gene Assay - Final Complete 05/30/20 11:40 Nasal Nares - Final Complete 05/30/20 11:40 Nasal Nares - Final Complete Laboratory Tests 05/31/20 06:30: White Blood Count 7.5, Red Blood Count 3.84L, Hemoglobin 13.3, Hematocrit 39.8, Mean Corpuscular Volume 104H, Mean Corpuscular Hemoglobin 34.5H, Mean Corpuscular Hemoglobin Concent 33.3, Red Cell Distribution Width 12.0, Platelet Count 206, Mean Platelet Volume 7.0, Neutrophils (%) (Auto) 61.4, Lymphocytes (% ) (Auto) 25.7, Monocytes (%) (Auto) 10.9H, Eosinophils (%) (Auto) 1.1, Basophils (%) (Auto) 0.9, Sodium Level 135L, Potassium Level 4.1, Chloride Level 100, Carbon Dioxide Level 28, Anion Gap 7, Blood Urea Nitrogen 11, Creatinine 0.5L, Estimat Glomerular Filtration Rate > 60, Glucose Level 106, Calcium Level 8.5, Phosphorus Level 3.7, Albumin 2.1L 05/31/20 14:10: Urine Legionella Antigen [Pending] 05/31/20 17:15: Legionella pneumophilia IgM Group 1 [Pending], Mycoplasma pneumoniae IgM Ab Titer [Pending] Current Medications Medications (Trade) Dose Ordered Sig/Katy Route PRN Reason Start Time Stop Time Status Last Admin Dose Admin Acetaminophen (Tylenol) 650 mg Q4H PRN ORAL FEVER 05/30/20 16:15 06/29/20 16:14 Albuterol/ Ipratropium (Albuterol/ Ipratropium) 3 ml Q4H PRN HHN Shortness of Breath 05/30/20 16:15 06/04/20 16:14 05/31/20 16:59 Azithromycin 500 mg/Dextrose 275 ml @ 275 mls/hr Q24HRS IV 05/31/20 14:00 06/06/20 14:59 05/31/20 15:44 Baclofen (Lioresal) 10 mg Q8HR GT 05/30/20 22:00 06/29/20 21:59 05/31/20 15:46 Dextrose (Dextrose 50%) 25 ml Q30M PRN IV Hypoglycemia 05/30/20 16:15 08/28/20 16:14 Dextrose (Dextrose 50%) 50 ml Q30M PRN IV Hypoglycemia 05/30/20 16:15 08/28/20 16:14 Heparin Sodium (Porcine) (Heparin 5000 units/ml) 5,000 units EVERY 12 HOURS SUBQ 05/30/20 21:00 07/14/20 20:59 05/31/20 09:18 Levothyroxine Sodium (Synthroid) 75 mcg DAILY GT 05/31/20 09:00 06/30/20 08:59 05/31/20 09:11 Ondansetron HCl (Zofran) 4 mg Q6H PRN IVP Nausea & Vomiting 05/30/20 16:15 06/29/20 16:14 Pantoprazole (Protonix) 40 mg DAILY IV 05/31/20 09:00 06/30/20 08:59 05/31/20 09:11 Piperacillin Sod/ Tazobactam Sod 3.375 gm/Sodium Chloride 110 ml @ 220 mls/hr EVERY 8 HOURS IVPB 05/30/20 22:00 06/06/20 21:59 05/31/20 15:38 Polyethylene Glycol (Miralax) 17 gm DAILYPRN PRN ORAL Constipation 05/30/20 16:15 06/29/20 16:14 Temazepam (Restoril) 15 mg HSPRN PRN ORAL Insomnia 05/30/20 16:15 06/06/20 16:14 Valproic Acid (Depakene) 500 mg EVERY 8 HOURS GT 05/30/20 22:00 06/29/20 21:59 05/31/20 15:47 Vancomycin HCl 1 gm/Dextrose 275 ml @ 183.3 mls/ hr Q12H IVPB 05/31/20 00:00 06/05/20 00:00 05/31/20 12:07 Assessment/Plan Problems: (1) Respiratory distress (2) Seizure disorder (3) Hypothyroidism (4) Trisomy 21, Down syndrome (5) Encephalopathy chronic Assessment/Plan respiratory treatment check sputum iv abx iv fluids seizure precaution ortiz culture resume gtube feeding dvt prophylaxis Elayne Allred MD May 31, 2020 18:09
--- NOTE | 2020-05-31 18:49 | NUR ---
NURSE NOTES: inserted sarah for retention 16 fringe, 900ml out.
--- NOTE | 2020-05-31 19:29 | Consultation ---
DATE OF CONSULTATION: 05/31/2020 CONSULTING PHYSICIAN: Mitul Tucker M.D. REQUESTING PHYSICIAN: Elayne Allred M.D. REASON FOR CONSULTATION: Evaluation of the patient for pneumonia, sepsis, antibiotic management. HISTORY OF PRESENT ILLNESS: The patient is a 59-year-old female with multiple medical problems, who was admitted to this medical center due to hypoxemia, having fever, respiratory secretions. Infectious Disease consultation has been requested for further evaluation of the patient and for management of pneumonia. PAST MEDICAL HISTORY: 1. Down syndrome. 2. Seizure disorder. 3. History of PEG tube placement. 4. History of hypothyroidism. ALLERGIES: No known drug allergies. MEDICATIONS: The patient is on vancomycin and Zosyn. SOCIAL HISTORY: The patient lives in a alf. FAMILY HISTORY: Noncontributory. REVIEW OF SYSTEMS: Unobtainable. PHYSICAL EXAM: VITAL SIGNS: Temperature 97.7, pulse 86, respiratory rate 18, and blood pressure 100/62. HEENT: No pale conjunctivae. No icterus. NECK: No lymphadenopathy. CHEST: Coarse breathing sounds. HEART: S1 and S2. ABDOMEN: Soft. PEG tube in place. EXTREMITIES: No cyanosis at this time . NEUROLOGIC: Awake. LABS: White blood cells 7.5, hemoglobin 13, platelets 206. UA unremarkable. BUN 11, creatinine 0.1. ALT, AST, alkaline phosphatase unremarkable. Sputum culture pending. SARS COVID x 1 negative. Blood culture x1 was growing gram positive cocci in clusters. Chest x-ray, patchy bilateral interstitial opacities. ASSESSMENT: 1. Pneumonia. 2. Positive blood culture, gram-positive cocci? contaminant versus real. 3. Seizure disorder. 4. Hypothyroidism. 5. Down syndrome. PLAN: 1. We will continue the patient on vancomycin and Zosyn. We will add Zithromax for atypical coverage. 2. Monitor CBC. 3. Monitor BMP. 4. Monitor culture (blood, urine, sputum). 5. Repeat blood culture x2. 6. COVID test number 2, , discussed with RN. 7. Monitor chest x-ray. 8. Monitor the patient's clinical course and labs. Based on those, we will do further recommendation. Thank you, Dr. Allred, for allowing me to participate in the care of this patient. I will follow the patient with you at this hospitalization. Mitul Tucker M.D. DR: RIMA JOB#: [id number] CC:
--- NOTE | 2020-05-31 19:42 | NUR ---
NURSE NOTES: Received patient from TAI Oliver. Patient asleep bed in lowest position, call within reach. Venturi mask and G Tube feeding running. Will continue to monitor.
--- NOTE | 2020-05-31 19:48 | NUR ---
NURSE HAND-OFF REPORT: Important Events on Shift:inserted 16 f sarah, pt retaining 900ml urine. suction pt PRN she has a lot of phlegm sating 92-96 pt positive for gram +cocci in clusters doctor Paul sarmiento.. side rails padded Patient Status: Full code Diet: gtube feeding Pending Orders: Pending Results/Labs:urine sample Pending MD notification: Latest Vital Signs: Temperature 97.9 , Pulse 65 , B/P 101 /70 , Respiratory Rate 18 , O2 SAT 97 , Venturi Mask, O2 Flow Rate 5.0 . Vital Sign Comment: EKG Rhythm: SR w BBB Rhythm change?: N MD Notified?: - MD Response: Latest Osorio Fall Score: 60 Fall Risk: High Risk Safety Measures: Call light Within Reach, Bed Alarm Zone 1, Side Rails Side Rails x3, Bed position Low and Locked. Fall Precautions: y Yellow Socks y Yellow Gown y Door Sign Patient Fall Education y Report given to Taylor/RN.
[2020-06-01] VITALS: BP 118/62
[2020-06-01] MEDS: Vancomycin 1 GM in D5W 275 ML IVPB SCH ×3 (00:26→16:20)
[2020-06-01 04:00] VITALS: BP 128/81
--- NOTE | 2020-06-01 05:49 | NUR ---
NURSE NOTES: Left a message for Dr. Allred regarding patient's red color urine in her catheter. Awaiting for call back.
[2020-06-01] MEDS: Valproic Acid 250mg/5ml Liquid GT SCH ×3 (06:17→21:02)
[2020-06-01] MEDS: Piperacillin/Tazobactam 3.375 GM in NS 110 ML IVPB SCH ×3 (06:18→21:02)
[2020-06-01 06:56] LABS: BASOPHILS % (AUTO) 1.2 % (0.0-2.0); EOSINOPHILS % (AUTO) 1.1 % (0.0-3.0); HEMATOCRIT 39.9 % (37.0-47.0); HEMOGLOBIN 13.2 G/DL (12.0-16.0); LYMPHOCYTES % (AUTO) 29.5 % (20.0-45.0); MEAN CORPUSCULAR VOLUME 105 FL (80-99); MONOCYTES % (AUTO) 10.8 % (1.0-10.0); NEUTROPHILS % (AUTO) 57.4 % (45.0-75.0); PLATELET COUNT 242 K/UL (150-450); RED BLOOD COUNT 3.82 M/UL (4.20-5.40); RED CELL DISTRIBUTION WIDTH 12.5 % (11.6-14.8); WHITE BLOOD COUNT 8.6 K/UL (4.8-10.8)
--- NOTE | 2020-06-01 07:15 | NUR ---
NURSE HAND-OFF REPORT: Important Events on Shift: REPORTED BLOODY URINE TO MD. NO NEW ORDERS Patient Status: STABLE Diet: FEEDING Pending Orders: N Pending Results/Labs:N Pending MD notification:N Latest Vital Signs: Temperature 98.2 , Pulse 87 , B/P 128 /81 , Respiratory Rate 20 , O2 SAT 94 , Venturi Mask, O2 Flow Rate 5.0 . Vital Sign Comment: STABLE EKG Rhythm: SR w BBB Rhythm change?: N MD Notified?: - MD Response: Latest Osorio Fall Score: 60 Fall Risk: High Risk Safety Measures: Call light Within Reach, Bed Alarm Zone 1, Side Rails Side Rails x3, Bed position Low and Locked. Fall Precautions: Y Yellow Socks Y Yellow Gown Y Door Sign Y Patient Fall Education Y Report given to TAI NICOLE.
--- NOTE | 2020-06-01 07:45 | NUR ---
NURSE NOTES: Recvd pt. Pt is sleeping in bed. Pt is on venturi mask FiO2 50%. Pt has GT running Jevity 1.2 @ 30/hr and tolerating well. Pt has Gregorio cath in place and draining to gravity. Bed in lowest locked position, call light within reach, will continue with plan of care.
[2020-06-01 07:56] LABS: ALANINE AMINOTRANSFERASE 15 U/L (12-78); ALBUMIN 2.2 G/DL (3.4-5.0); ALBUMIN/GLOBULIN RATIO 0.5 (1.0-2.7); ALKALINE PHOSPHATASE 60 U/L (46-116); ANION GAP 12 mmol/L (5-15); ASPARTATE AMINO TRANSFERASE 17 U/L (15-37); BILIRUBIN,TOTAL 0.3 MG/DL (0.2-1.0); BLOOD UREA NITROGEN 8 mg/dL (7-18); CALCIUM 8.8 MG/DL (8.5-10.1); CARBON DIOXIDE 28 MMOL/L (21-32); CHLORIDE 100 MMOL/L (98-107); CREATININE 0.5 MG/DL (0.55-1.30); PHOSPHORUS 2.9 MG/DL (2.5-4.9); POTASSIUM 3.4 MMOL/L (3.5-5.1); SODIUM 140 MMOL/L (136-145)
[2020-06-01 08:00] VITALS: BP 120/69
[2020-06-01] MEDS: Heparin 5000 units/ml inj SUBQ SCH ×2 (09:00→21:00)
[2020-06-01] MEDS: Pantoprazole Inj IV SCH (09:25)
[2020-06-01 12:00] VITALS: BP 127/53
--- NOTE | 2020-06-01 12:53 | Pulmonology Progress Note ---
Subjective ROS Limited/Unobtainable: No Constitutional: Reports: no symptoms HEENT: Repors: no symptoms Respiratory: Reports: no symptoms Allergies: Coded Allergies: No Known Allergies (Unverified , 10/16/18) Objective Last 24 Hour Vital Signs Date Time Temp Pulse Resp B/P (MAP) Pulse Ox O2 Delivery O2 Flow Rate FiO2 06/01/20 12:00 Venturi Mask 5.0 06/01/20 12:00 97.9 91 20 127/53 (77) 94 06/01/20 12:00 50 06/01/20 12:00 89 06/01/20 08:00 84 06/01/20 08:00 Venturi Mask 5.0 06/01/20 08:00 97.9 81 20 120/69 (86) 94 06/01/20 08:00 50 06/01/20 04:00 98.2 85 20 128/81 (97) 94 06/01/20 04:00 Venturi Mask 5.0 06/01/20 04:00 87 06/01/20 04:00 50 06/01/20 00:00 98.4 94 28 118/62 (80) 92 06/01/20 00:00 50 06/01/20 00:00 Venturi Mask 5.0 05/31/20 20:00 Venturi Mask 5.0 05/31/20 20:00 98.4 80 20 100/52 (68) 95 05/31/20 20:00 94 Venturi Mask 6.0 35 05/31/20 20:00 80 05/31/20 19:30 81 18 94 Venturi Mask 6.0 35 05/31/20 16:57 79 20 99 Venturi Mask 8.0 40 75 20 95 05/31/20 16:00 35 05/31/20 16:00 65 05/31/20 16:00 Venturi Mask 5.0 05/31/20 16:00 97.9 68 18 101/70 (80) 97 Intake and Output 05/31/20 06/01/20 19:00 07:00 Intake Total 300 ml Output Total 350 ml Balance -50 ml Tube Feeding 300 ml Output Urine Total 350 ml # Bowel Movements 1 1 General Appearance: WD/WN HEENT: normocephalic, atraumatic Respiratory: chest wall non-tender, lungs clear Cardiovascular: normal peripheral pulses, normal rate Abdomen: normal bowel sounds, rebound tenderness Genitourinary: normal external genitalia Extremities: no cyanosis Skin: no rash Neurologic: degree clerk II-XII grossly normal Microbiology Date/Time Source Procedure Growth Status 05/30/20 11:40 Blood Blood Culture - Preliminary Gram Positive Cocci Resulted 05/30/20 11:40 Blood Blood Culture - Preliminary Resulted 05/31/20 14:10 Nasopharynx SARS-CoV-2 RdRp Gene Assay - Final Complete 05/30/20 17:29 Sputum Gram Stain - Final Resulted 05/30/20 17:29 Sputum Sputum Culture Pending Resulted 05/30/20 11:40 Nasopharynx SARS-CoV-2 RdRp Gene Assay - Final Complete 05/30/20 11:40 Nasal Nares - Final Complete 05/30/20 11:40 Nasal Nares - Final Complete 05/30/20 11:50 Urine,Clean Catch Urine Culture - Preliminary NO GROWTH AFTER 24 HOURS Resulted Laboratory Tests 05/31/20 14:10: Urine Legionella Antigen [Pending] 05/31/20 17:15: Legionella pneumophilia IgM Group 1 [Pending], Mycoplasma pneumoniae IgM Ab Titer [Pending] 05/31/20 23:10: Vancomycin Level Trough 10.2 06/01/20 03:05: White Blood Count 8.6, Red Blood Count 3.82L, Hemoglobin 13.2, Hematocrit 39.9, Mean Corpuscular Volume 105H, Mean Corpuscular Hemoglobin 34.6H, Mean Corpuscular Hemoglobin Concent 33.1, Red Cell Distribution Width 12.5, Platelet Count 242, Mean Platelet Volume 6.2L, Neutrophils (%) (Auto) 57.4, Lymphocytes ( %) (Auto) 29.5, Monocytes (%) (Auto) 10.8H, Eosinophils (%) (Auto) 1.1, Basophils (%) (Auto) 1.2, Erythrocyte Sedimentation Rate 49H, Sodium Level 140, Potassium Level 3.4L, Chloride Level 100, Carbon Dioxide Level 28, Anion Gap 12 , Blood Urea Nitrogen 8, Creatinine 0.5L, Estimat Glomerular Filtration Rate > 60, Glucose Level 87, Calcium Level 8.8, Phosphorus Level 2.9, Magnesium Level 2.1, Total Bilirubin 0.3, Aspartate Amino Transf (AST/SGOT) 17, Alanine Aminotransferase (ALT/SGPT) 15, Alkaline Phosphatase 60, C-Reactive Protein, Quantitative 2.8H, Total Protein 6.8, Albumin 2.2L, Globulin 4.6, Albumin/ Globulin Ratio 0.5L Current Medications Medications (Trade) Dose Ordered Sig/Katy Route PRN Reason Start Time Stop Time Status Last Admin Dose Admin Acetaminophen (Tylenol) 650 mg Q4H PRN ORAL FEVER 05/30/20 16:15 06/29/20 16:14 Albuterol/ Ipratropium (Albuterol/ Ipratropium) 3 ml Q4H PRN HHN Shortness of Breath 05/30/20 16:15 06/04/20 16:14 05/31/20 16:59 Azithromycin 500 mg/Dextrose 275 ml @ 275 mls/hr Q24HRS IV 05/31/20 14:00 06/06/20 14:59 05/31/20 15:44 Baclofen (Lioresal) 10 mg Q8HR GT 05/30/20 22:00 06/29/20 21:59 06/01/20 06:17 Dextrose (Dextrose 50%) 25 ml Q30M PRN IV Hypoglycemia 05/30/20 16:15 08/28/20 16:14 Dextrose (Dextrose 50%) 50 ml Q30M PRN IV Hypoglycemia 05/30/20 16:15 08/28/20 16:14 Heparin Sodium (Porcine) (Heparin 5000 units/ml) 5,000 units EVERY 12 HOURS SUBQ 05/30/20 21:00 07/14/20 20:59 05/31/20 21:36 Levothyroxine Sodium (Synthroid) 75 mcg DAILY GT 05/31/20 09:00 06/30/20 08:59 06/01/20 09:11 Ondansetron HCl (Zofran) 4 mg Q6H PRN IVP Nausea & Vomiting 05/30/20 16:15 06/29/20 16:14 Pantoprazole (Protonix) 40 mg DAILY IV 05/31/20 09:00 06/30/20 08:59 06/01/20 09:25 Piperacillin Sod/ Tazobactam Sod 3.375 gm/Sodium Chloride 110 ml @ 220 mls/hr EVERY 8 HOURS IVPB 05/30/20 22:00 06/06/20 21:59 06/01/20 06:18 Polyethylene Glycol (Miralax) 17 gm DAILYPRN PRN ORAL Constipation 05/30/20 16:15 06/29/20 16:14 Temazepam (Restoril) 15 mg HSPRN PRN ORAL Insomnia 05/30/20 16:15 06/06/20 16:14 Valproic Acid (Depakene) 500 mg EVERY 8 HOURS GT 05/30/20 22:00 06/29/20 21:59 06/01/20 06:17 Vancomycin HCl 1 gm/Dextrose 275 ml @ 183.3 mls/ hr Q8H IVPB 06/01/20 08:00 06/06/20 07:59 06/01/20 08:00 Assessment/Plan Problems: (1) Respiratory distress (2) Seizure disorder (3) Hypothyroidism (4) Trisomy 21, Down syndrome (5) Encephalopathy chronic Assessment/Plan doing better respiratory treatment check sputum iv abx iv fluids seizure precaution ortiz culture resume gtube feeding dvt prophylaxis Elayne Allred MD Jun 01, 2020 12:52
--- NOTE | 2020-06-01 13:35 | History & Physical ---
History and Physical History & Physicial Dictated for Int Med-Joni Silva MD Jun 01, 2020 13:35
[2020-06-01] MEDS: Azithromycin 500 MG in D5W 275 ML IV SCH (14:26)
--- NOTE | 2020-06-01 15:05 | NUR ---
CASE MANAGEMENT: REVIEW SI: PNA . DOWN SYNDROME . ENCEPHALOPATHY . SEIZURE DISORDER T 97.9 HR 91 RR 28 BP 100/52 SAT 94% VENTURI MASK FIO2 50 K 3.4 CR 0.5 ALBUMIN 2.2 IS: VANCOMYCIN IV Q8HR AZITHROMYCIN IV Q24HR PROTONIX IV QD VALPROIC ACID GT Q8HR ZOSYN IV Q8HR HEPARIN SUBQ Q12HR STEP DOWN UNIT STATUS DCP: PATIENT IS FROM [facility]
[2020-06-01 16:00] VITALS: BP 122/67
--- NOTE | 2020-06-01 17:10 | NUR ---
NURSE NOTES:WOUND CARE NOTES:Pt presented on admission with Moisture Intertrigo abdominal folds. Bilat groin folds are moist and erythematous. No erythema or evidence of skin breakdown noted to sacrum or buttocks. Non-Blanchable erythema without induration R Hallux. (L03cm x (W)3.5cm. R Heel is Boggy with non-Blanchable erythema. L heel is soft but easily blanches. Soft necrosis noted to tip of R 5th metatarsal(L)1.2cm x (W)1cm. Tx.Plan: Apply Moisture Barrier Paste to sacrum. Cover with Optifoam drsg. Change every 3 days and prn. Apply Phytoplex Antifungal cream to abdominal folds and groin twice daily.(May apply with Moisture Barrier paste ) Apply Cavilon Skin Barrier to both heels and malleoli.Cover each site with Optifoam drsgs. Change every 7 days and prn. Please request consult for further evaluation R 5th metatarsal. Reposition at least every 2hours or as tolerated. Place pillow between knees. Off-load heels with pillow. Addendum: 06/03/20 at 1413 by Yuri Norwood LVN ADDENDUM TO ABOVE WOUND NOTES: L 1st metatarsal deformity. toe is erythematous and mac erated with smal partial thickness wound plantar aspect (L)0.5cm x (W)0.7cm.
--- NOTE | 2020-06-01 19:20 | NUR ---
NURSE NOTES: received pt from Nell LUJAN., pt is awake and nonverbal. pt is on Ventury mask 50% with O2sat of 90%. oral suction given. Gtube site clean, intact, and patent. lef thand 20g intact clean, and patent. sarah cath draining well with gravity. side rails are padded. call light within reach. will continue to monitor pt with plan of care. bed at the lowest position, alarmed, and locked.
[2020-06-01 20:00] VITALS: BP 108/59
[2020-06-01] MEDS ORDERED: ACETAMINOP160 MG/5 M GT (20:21)
--- NOTE | 2020-06-01 20:24 | Infectious Diseases Prog Note ---
Assessment/Plan ASSESSMENT: 1. Pneumonia.- COVID 19 neg x2 Acute hypoxic resp filure on VM -COVID Rapid PCR neg 05/31, 05/31 -05/30 spc x p 2. Positive blood culture, gram-positive cocci? contaminant versus real. -05/30 Bcx 2/2 sets GPC R/o probable UTI ua/ wbc 10-15, nit neg, leuk +1; ucx NTD 3. Seizure disorder. 4. Hypothyroidism. 5. Down syndrome. History of PEG tube placement. [place] resident PLAN: 1. We will continue the patient on vancomycin #3 and Zosyn #3. Zithromax #2 for atypical coverage. -05/30 SP Cefepime x1, Flagyl x1 2. Monitor CBC. 3. Monitor BMP. 4. Monitor culture (blood, urine, sputum). 5. f/u Repeat blood culture x2. 6. COVID neg x2 7. Monitor chest x-ray. 8. Monitor the patient's clinical course and labs. Based on those, we will do further recommendation. Thank you, Dr. Allred, for allowing me to participate in the care of this patient. I will follow the patient with you at this hospitalization. Subjective Allergies: Coded Allergies: No Known Allergies (Unverified , 10/16/18) afebrile on VM 50%, 15L Objective Last 24 Hour Vital Signs Date Time Temp Pulse Resp B/P (MAP) Pulse Ox O2 Delivery O2 Flow Rate FiO2 06/01/20 16:00 90 06/01/20 16:00 97.9 92 23 122/67 (85) 97 06/01/20 16:00 Venturi Mask 15.0 06/01/20 16:00 50 06/01/20 12:00 Venturi Mask 5.0 06/01/20 12:00 97.9 91 20 127/53 (77) 94 06/01/20 12:00 50 06/01/20 12:00 89 06/01/20 08:00 84 06/01/20 08:00 Venturi Mask 5.0 06/01/20 08:00 97.9 81 20 120/69 (86) 94 06/01/20 08:00 50 06/01/20 04:00 98.2 85 20 128/81 (97) 94 06/01/20 04:00 Venturi Mask 5.0 06/01/20 04:00 87 06/01/20 04:00 50 06/01/20 00:00 98.4 94 28 118/62 (80) 92 06/01/20 00:00 50 06/01/20 00:00 Venturi Mask 5.0 Height (Feet): 5 Height (Inches): 3.00 Weight (Pounds): 144 HEENT: No pale conjunctivae. No icterus. NECK: No lymphadenopathy. CHEST: Coarse breathing sounds. HEART: S1 and S2. ABDOMEN: Soft. PEG tube in place. EXTREMITIES: No cyanosis at this time . NEUROLOGIC: Awake. Microbiology Date/Time Source Procedure Growth Status 05/30/20 11:40 Blood Blood Culture - Preliminary Gram Positive Cocci Resulted 05/30/20 11:40 Blood Blood Culture - Preliminary Resulted 05/31/20 14:10 Nasopharynx SARS-CoV-2 RdRp Gene Assay - Final Complete 05/30/20 17:29 Sputum Gram Stain - Final Resulted 05/30/20 17:29 Sputum Sputum Culture Pending Resulted 05/30/20 11:40 Nasopharynx SARS-CoV-2 RdRp Gene Assay - Final Complete 05/30/20 11:40 Nasal Nares - Final Complete 05/30/20 11:40 Nasal Nares - Final Complete 05/30/20 11:50 Urine,Clean Catch Urine Culture - Preliminary NO GROWTH AFTER 24 HOURS Resulted Laboratory Tests Test 05/31/20 23:10 06/01/20 03:05 Vancomycin Level Trough 10.2 ug/mL (5.0-12.0) White Blood Count 8.6 K/UL (4.8-10.8) Red Blood Count 3.82 M/UL (4.20-5.40) L Hemoglobin 13.2 G/DL (12.0-16.0) Hematocrit 39.9 % (37.0-47.0) Mean Corpuscular Volume 105 FL (80-99) H Mean Corpuscular Hemoglobin 34.6 PG (27.0-31.0) H Mean Corpuscular Hemoglobin Concent 33.1 G/DL (32.0-36.0) Red Cell Distribution Width 12.5 % (11.6-14.8) Platelet Count 242 K/UL (150-450) Mean Platelet Volume 6.2 FL (6.5-10.1) L Neutrophils (%) (Auto) 57.4 % (45.0-75.0) Lymphocytes (%) (Auto) 29.5 % (20.0-45.0) Monocytes (%) (Auto) 10.8 % (1.0-10.0) H Eosinophils (%) (Auto) 1.1 % (0.0-3.0) Basophils (%) (Auto) 1.2 % (0.0-2.0) Erythrocyte Sedimentation Rate 49 MM/HR (0-30) H Sodium Level 140 MMOL/L (136-145) Potassium Level 3.4 MMOL/L (3.5-5.1) L Chloride Level 100 MMOL/L (98-107) Carbon Dioxide Level 28 MMOL/L (21-32) Anion Gap 12 mmol/L (5-15) Blood Urea Nitrogen 8 mg/dL (7-18) Creatinine 0.5 MG/DL (0.55-1.30) L Estimat Glomerular Filtration Rate > 60 mL/min (>60) Glucose Level 87 MG/DL (74-106) Calcium Level 8.8 MG/DL (8.5-10.1) Phosphorus Level 2.9 MG/DL (2.5-4.9) Magnesium Level 2.1 MG/DL (1.8-2.4) Total Bilirubin 0.3 MG/DL (0.2-1.0) Aspartate Amino Transf (AST/SGOT) 17 U/L (15-37) Alanine Aminotransferase (ALT/SGPT) 15 U/L (12-78) Alkaline Phosphatase 60 U/L (46-116) C-Reactive Protein, Quantitative 2.8 mg/dL (0.00-0.90) H Total Protein 6.8 G/DL (6.4-8.2) Albumin 2.2 G/DL (3.4-5.0) L Globulin 4.6 g/dL Albumin/Globulin Ratio 0.5 (1.0-2.7) L Current Medications Medications (Trade) Dose Ordered Sig/Katy Route PRN Reason Start Time Stop Time Status Last Admin Dose Admin Acetaminophen (Tylenol) 650 mg Q4H PRN ORAL FEVER 05/30/20 16:15 06/29/20 16:14 Albuterol/ Ipratropium (Albuterol/ Ipratropium) 3 ml Q4H PRN HHN Shortness of Breath 05/30/20 16:15 06/04/20 16:14 05/31/20 16:59 Azithromycin 500 mg/Dextrose 275 ml @ 275 mls/hr Q24HRS IV 05/31/20 14:00 06/06/20 14:59 06/01/20 14:26 Baclofen (Lioresal) 10 mg Q8HR GT 05/30/20 22:00 06/29/20 21:59 06/01/20 14:26 Dextrose (Dextrose 50%) 25 ml Q30M PRN IV Hypoglycemia 05/30/20 16:15 08/28/20 16:14 Dextrose (Dextrose 50%) 50 ml Q30M PRN IV Hypoglycemia 05/30/20 16:15 08/28/20 16:14 Heparin Sodium (Porcine) (Heparin 5000 units/ml) 5,000 units EVERY 12 HOURS SUBQ 05/30/20 21:00 07/14/20 20:59 05/31/20 21:36 Levothyroxine Sodium (Synthroid) 75 mcg DAILY GT 05/31/20 09:00 06/30/20 08:59 06/01/20 09:11 Ondansetron HCl (Zofran) 4 mg Q6H PRN IVP Nausea & Vomiting 05/30/20 16:15 06/29/20 16:14 Pantoprazole (Protonix) 40 mg DAILY IV 05/31/20 09:00 06/30/20 08:59 06/01/20 09:25 Piperacillin Sod/ Tazobactam Sod 3.375 gm/Sodium Chloride 110 ml @ 220 mls/hr EVERY 8 HOURS IVPB 05/30/20 22:00 06/06/20 21:59 06/01/20 14:53 Polyethylene Glycol (Miralax) 17 gm DAILYPRN PRN ORAL Constipation 05/30/20 16:15 06/29/20 16:14 Potassium Chloride (K-Dur) 40 meq ONCE GT 06/01/20 21:00 06/01/20 22:00 Temazepam (Restoril) 15 mg HSPRN PRN ORAL Insomnia 05/30/20 16:15 06/06/20 16:14 Valproic Acid (Depakene) 500 mg EVERY 8 HOURS GT 05/30/20 22:00 06/29/20 21:59 06/01/20 14:26 Vancomycin HCl 1 gm/Dextrose 275 ml @ 183.3 mls/ hr Q8H IVPB 06/01/20 08:00 06/06/20 07:59 06/01/20 16:20 Suki Camejo M.D. Jun 01, 2020 20:24
--- NOTE | 2020-06-01 21:52 | NUR ---
NURSE NOTES: left Voice mail to Dr. Allred and notified regarding new ABG result. also notified Dr. Allred regarding pt is keep desaturating every 30 minutes after suction to 84-81%. will wait for call back. will continue to monitor pt closely.
[2020-06-02] VITALS: BP 98/60
--- NOTE | 2020-06-02 | NUR ---
NURSE NOTES: changed to non-breather mask due to desating. pt O2sat is at 95%. will continue to monitor pt with plan of care.
--- NOTE | 2020-06-02 00:06 | NUR ---
NURSE NOTES: did not administer Vaco that was scheduled on 0000, due to high level of vanco level. spoke with [facility] pharmacist Francie.
[2020-06-02 04:00] VITALS: BP 101/63
[2020-06-02] MEDS: Piperacillin/Tazobactam 3.375 GM in NS 110 ML IVPB SCH (05:48)
[2020-06-02] MEDS: Valproic Acid 250mg/5ml Liquid GT SCH ×3 (05:48→21:55)
[2020-06-02 05:49] LABS: BASOPHILS % (AUTO) 1.1 % (0.0-2.0); EOSINOPHILS % (AUTO) 0.4 % (0.0-3.0); HEMATOCRIT 42.2 % (37.0-47.0); LYMPHOCYTES % (AUTO) 29.1 % (20.0-45.0); MEAN CORPUSCULAR VOLUME 104 FL (80-99); MONOCYTES % (AUTO) 13.9 % (1.0-10.0); NEUTROPHILS % (AUTO) 55.4 % (45.0-75.0); PLATELET COUNT 264 K/UL (150-450); RED BLOOD COUNT 4.06 M/UL (4.20-5.40); RED CELL DISTRIBUTION WIDTH 12.4 % (11.6-14.8); WHITE BLOOD COUNT 12.7 K/UL (4.8-10.8)
--- NOTE | 2020-06-02 06:24 | NUR ---
NURSE NOTES: left voice mail to Dr. mayes regarding new result for ABG stat done in 0600. pt is lethargic, BP 148/80 O2sat is at 95% with non-breather mask, HR 90. will wait for call back. call light within reach. will continue to monitor pt with plan of care. ABG result: PH 7.400 PCO2 42.0 PO2 47.3 HCO3 25.4 SO2 84.0
[2020-06-02 06:44] LABS: ALANINE AMINOTRANSFERASE 10 U/L (12-78); ALBUMIN/GLOBULIN RATIO 0.4 (1.0-2.7); ALKALINE PHOSPHATASE 56 U/L (46-116); ANION GAP 6 mmol/L (5-15); ASPARTATE AMINO TRANSFERASE 28 U/L (15-37); BILIRUBIN,TOTAL 0.4 MG/DL (0.2-1.0); BLOOD UREA NITROGEN 11 mg/dL (7-18); CARBON DIOXIDE 30 MMOL/L (21-32); CHLORIDE 104 MMOL/L (98-107); CREATININE 1.3 MG/DL (0.55-1.30); POTASSIUM 4.7 MMOL/L (3.5-5.1); SODIUM 140 MMOL/L (136-145)
--- NOTE | 2020-06-02 06:57 | NUR ---
NURSE NOTES: oral suction, and deep suction done. pt is at 89%. called RT due to pt's low O2sat. call light within reach. will continue to monitor.
--- NOTE | 2020-06-02 07:04 | NUR ---
NURSE NOTES: left voice mail again to Dr. Allred regarding pt's low O2sat ranges from 81-88% at this time. left again regarding ABG result. RT at the bedside. call light within reach. will continue to monitor pt. will wait for call back.
--- NOTE | 2020-06-02 07:20 | NUR ---
NURSE HAND-OFF REPORT: Important Events on Shift:pt desat ranges from 80-88% Patient Status: full code, Diet: tube feeding Pending Orders: bIPAP Pending Results/Labs:none Pending MD notification:BIPAP, from Dr. Allred Latest Vital Signs: Temperature 97.5 , Pulse 70 , B/P 124 /60 , Respiratory Rate 23 , O2 SAT 100 , Mechanical Ventilator, O2 Flow Rate 30.0 . Vital Sign Comment: low O2sat EKG Rhythm: Sinus Rhythm Rhythm change?: N MD Notified?: - MD Response: Latest Osorio Fall Score: 35 Fall Risk: Medium Risk Safety Measures: Call light Within Reach, Bed Alarm Zone 2, Side Rails Side Rails x3, Bed position Low and Locked. Fall Precautions: Yellow Socks Yellow Gown Door Sign Patient Fall Education Report given to Ivania LUJAN
--- NOTE | 2020-06-02 07:47 | NUR ---
NURSE NOTES: Patient turned to left side, suction provided, O2 sat 93% at this time, on non-rebreather
--- NOTE | 2020-06-02 07:48 | NUR ---
NURSE NOTES: Received report from Maris Perdue RN. Patient in bed resting, no active s/s cardiac, respiratory distress noticed at this time. Patient obtunded, SR with HR 93, on non-rebreather, endorsed MD paged regarding further oxygen order. GT on hold due to increase in secretion, GT place intact, asymptomatic, patent. IV on left hand 20G, asymptomatic, patent, intact. Bed in lowest position, side rails upx3, call light within reach, bed alarm on, Will continue to monitor.
[2020-06-02 08:00] VITALS: BP 94/50
[2020-06-02] MEDS: Pantoprazole Inj IV SCH (08:18)
[2020-06-02] MEDS: Heparin 5000 units/ml inj SUBQ SCH ×2 (08:19→20:37)
--- NOTE | 2020-06-02 09:03 | NUR ---
RADIOLOGY DEPT., CHEST X-RAY DONE.-P.DYE
[2020-06-02] MEDS ORDERED: Vancomycin 750mg/D5W 275ml IVPB SCH ×2 (11:00)
[2020-06-02] MEDS ORDERED: Vancomycin 1 GM in D5W 275 ML IVPB SCH (11:00)
--- NOTE | 2020-06-02 11:38 | NUR ---
NURSE NOTES: Dr. lAlred at the nursing station, made aware of result of ABG. Per MD no need to order BIPAP at this time, patient comfortable, O2 sat 96%, titrate Oxygen if tolerated.
--- NOTE | 2020-06-02 11:39 | Pulmonology Progress Note ---
Subjective ROS Limited/Unobtainable: No Constitutional: Reports: no symptoms HEENT: Repors: no symptoms Respiratory: Reports: no symptoms Allergies: Coded Allergies: No Known Allergies (Unverified , 10/16/18) Objective Last 24 Hour Vital Signs Date Time Temp Pulse Resp B/P (MAP) Pulse Ox O2 Delivery O2 Flow Rate FiO2 06/02/20 08:30 58 06/02/20 08:00 15.0 100 06/02/20 08:00 Non-Rebreather 15.0 06/02/20 08:00 98.1 72 20 94/50 (65) 99 06/02/20 07:10 97 Non-Rebreather 15.0 100 06/02/20 07:08 84 20 97 Non-Rebreather 15.0 100 06/02/20 04:00 15.0 100 06/02/20 04:00 98.0 93 21 101/63 (76) 95 06/02/20 04:00 Non-Rebreather 15.0 06/02/20 03:35 75 06/02/20 00:00 Non-Rebreather 15.0 06/02/20 00:00 98.5 90 21 98/60 (73) 94 06/01/20 23:33 79 06/01/20 20:20 92 Venturi Mask 15.0 55 06/01/20 20:19 82 20 92 Venturi Mask 15.0 55 06/01/20 20:00 Venturi Mask 15.0 06/01/20 20:00 98.0 90 23 108/59 (75) 90 06/01/20 20:00 50 06/01/20 20:00 90 06/01/20 16:00 90 06/01/20 16:00 97.9 92 23 122/67 (85) 97 06/01/20 16:00 Venturi Mask 15.0 06/01/20 16:00 50 06/01/20 12:00 Venturi Mask 5.0 06/01/20 12:00 97.9 91 20 127/53 (77) 94 06/01/20 12:00 50 06/01/20 12:00 89 Intake and Output 06/01/20 06/02/20 19:00 07:00 Intake Total 330 ml 650 ml Output Total 850 ml 800 ml Balance -520 ml -150 ml Free Water 100 ml IV Total 220 ml Tube Feeding 330 ml 330 ml Output Urine Total 700 ml 800 ml Stool Total 150 ml General Appearance: WD/WN HEENT: normocephalic, atraumatic Respiratory: chest wall non-tender, lungs clear Cardiovascular: normal peripheral pulses, normal rate Abdomen: normal bowel sounds, rebound tenderness Genitourinary: normal external genitalia Extremities: no cyanosis Skin: no rash Neurologic: 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 II-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 grossly normal Microbiology Date/Time Source Procedure Growth Status 05/31/20 17:30 Blood Blood Culture - Preliminary Resulted 05/31/20 17:15 Blood Blood Culture - Preliminary Resulted 05/30/20 11:40 Blood Blood Culture - Preliminary Gram Positive Cocci Resulted 05/30/20 11:40 Blood Blood Culture - Preliminary Resulted 05/31/20 14:10 Nasopharynx SARS-CoV-2 RdRp Gene Assay - Final Complete 05/30/20 17:29 Sputum Gram Stain - Final Complete 05/30/20 17:29 Sputum Culture - Final Streptococcus Group G Usual Respiratory Yvonne Complete 05/30/20 11:40 Nasopharynx SARS-CoV-2 RdRp Gene Assay - Final Complete 05/30/20 11:40 Nasal Nares - Final Complete 05/30/20 11:40 Nasal Nares - Final Complete 05/30/20 11:50 Urine,Clean Catch Urine Culture - Final NO GROWTH AFTER 48 HOURS Complete Laboratory Tests 06/01/20 21:34: Arterial Blood pH 7.480H, Arterial Blood Partial Pressure CO2 39.6, Arterial Blood Partial Pressure O2 48.6*L, Arterial Blood HCO3 28.8H, Arterial Blood Oxygen Saturation 86.5*L, Arterial Blood Base Excess 5.0H, Jonathan Test Positive 06/01/20 23:00: Vancomycin Level Trough 35.3H 06/02/20 04:55: White Blood Count 12.7H, Red Blood Count 4.06L, Hemoglobin 14.0, Hematocrit 42.2 , Mean Corpuscular Volume 104H, Mean Corpuscular Hemoglobin 34.4H, Mean Corpuscular Hemoglobin Concent 33.1, Red Cell Distribution Width 12.4, Platelet Count 264, Mean Platelet Volume 6.7, Neutrophils (%) (Auto) 55.4, Lymphocytes (% ) (Auto) 29.1, Monocytes (%) (Auto) 13.9H, Eosinophils (%) (Auto) 0.4, Basophils (%) (Auto) 1.1, Sodium Level 140, Potassium Level 4.7, Chloride Level 104, Carbon Dioxide Level 30, Anion Gap 6, Blood Urea Nitrogen 11, Creatinine 1.3#, Estimat Glomerular Filtration Rate 42.1, Glucose Level 103, Calcium Level 9.0, Total Bilirubin 0.4, Aspartate Amino Transf (AST/SGOT) 28, Alanine Aminotransferase (ALT/SGPT) 10L, Alkaline Phosphatase 56, Pro-B-Type Natriuretic Peptide 1561H, Total Protein 6.7, Albumin 2.0L, Globulin 4.7, Albumin/Globulin Ratio 0.4L 06/02/20 06:14: Arterial Blood pH 7.400, Arterial Blood Partial Pressure CO2 42.0, Arterial Blood Partial Pressure O2 47.3*L, Arterial Blood HCO3 25.4, Arterial Blood Oxygen Saturation 84.0*L, Arterial Blood Base Excess 0.5, Jonathan Test Positive Current Medications Medications (Trade) Dose Ordered Sig/Katy Route PRN Reason Start Time Stop Time Status Last Admin Dose Admin Acetaminophen (Tylenol) 650 mg Q4H PRN ORAL FEVER 05/30/20 16:15 06/29/20 16:14 Albuterol/ Ipratropium (Albuterol/ Ipratropium) 3 ml Q4H PRN HHN Shortness of Breath 05/30/20 16:15 06/04/20 16:14 05/31/20 16:59 Azithromycin 500 mg/Dextrose 275 ml @ 275 mls/hr Q24HRS IV 05/31/20 14:00 06/06/20 14:59 06/01/20 14:26 Baclofen (Lioresal) 10 mg Q8HR GT 05/30/20 22:00 06/29/20 21:59 06/02/20 05:48 Dextrose (Dextrose 50%) 25 ml Q30M PRN IV Hypoglycemia 05/30/20 16:15 08/28/20 16:14 Dextrose (Dextrose 50%) 50 ml Q30M PRN IV Hypoglycemia 05/30/20 16:15 08/28/20 16:14 Heparin Sodium (Porcine) (Heparin 5000 units/ml) 5,000 units EVERY 12 HOURS SUBQ 05/30/20 21:00 07/14/20 20:59 05/31/20 21:36 Levothyroxine Sodium (Synthroid) 75 mcg DAILY GT 05/31/20 09:00 06/30/20 08:59 06/02/20 08:18 Ondansetron HCl (Zofran) 4 mg Q6H PRN IVP Nausea & Vomiting 05/30/20 16:15 06/29/20 16:14 Pantoprazole (Protonix) 40 mg DAILY IV 05/31/20 09:00 06/30/20 08:59 06/02/20 08:18 Piperacillin Sod/ Tazobactam Sod 3.375 gm/Sodium Chloride 110 ml @ 220 mls/hr EVERY 8 HOURS IVPB 05/30/20 22:00 06/06/20 21:59 06/02/20 05:48 Polyethylene Glycol (Miralax) 17 gm DAILYPRN PRN ORAL Constipation 05/30/20 16:15 06/29/20 16:14 Temazepam (Restoril) 15 mg HSPRN PRN ORAL Insomnia 05/30/20 16:15 06/06/20 16:14 Valproic Acid (Depakene) 500 mg EVERY 8 HOURS GT 05/30/20 22:00 06/29/20 21:59 06/02/20 05:48 Vancomycin HCl 1 gm/Dextrose 275 ml @ 184 mls/hr Q12H IVPB 06/02/20 11:00 06/07/20 10:59 06/02/20 11:09 Assessment/Plan Problems: (1) Respiratory distress (2) Seizure disorder (3) Hypothyroidism (4) Trisomy 21, Down syndrome (5) Encephalopathy chronic Assessment/Plan on 100% NRM respiratory treatment check sputum iv abx iv fluids seizure precaution ortiz culture tolerating gtube feeding dvt prophylaxis Elayne Allred MD Jun 02, 2020 11:39
--- NOTE | 2020-06-02 11:56 | Diagnostic Imaging Report ---
Indication: Dyspnea Technique: One view of the chest Comparison: 05/30/2020 Findings: Again demonstrated is decreased lung volume on the right, appearing progressive since the prior exam. There is interim development of a right pleural effusion. Left basilar atelectasis ectatic changes are again demonstrated, unchanged. There is increased hazy opacity at the left lung base, likely reflecting increased pleural fluid and/or consolidation. Impression: Increased atelectasis of the right lung, since prior exam of 3 days earlier New or increased right pleural effusion Increased left basilar consolidation and/or pleural fluid
[2020-06-02 12:00] VITALS: BP 109/55
--- NOTE | 2020-06-02 12:37 | Infectious Diseases Prog Note ---
Assessment/Plan ASSESSMENT: Afebrile Mild leukocytosis Pneumonia.- COVID 19 neg x2 Acute hypoxic resp filure on VM> NRB 15l 100% -COVID Rapid PCR neg 05/31, 05/31 -05/30 spc x Group G strep Persistent, high grade bacteremia- r/o MRSA; r/o endocarditis -05/30 Bcx 4/4 sets GPC; 05/31 Bcx 3/4 GPC clusters R/o probable UTI ua/ wbc 10-15, nit neg, leuk +1; ucx Neg LEANN -supratherapeutic vanco levels -Seizure disorder. - Hypothyroidism. - Down syndrome. History of PEG tube placement. [place] resident PLAN: 1. Switch IV vancomycin #4 to Daptomycin for GPC bacteremia in view of LEANN Switch Zosyn #4/5-7 to Ceftriaxone Zithromax #3/5 for atypical coverage. -05/30 SP Cefepime x1, Flagyl x1 2. Monitor CBC. 3. Monitor BMP. 4. Monitor culture 5. Repeat blood culture x2, 2d echo 6. COVID neg x2 7. Monitor chest x-ray. 8. Monitor the patient's clinical course and labs. Based on those, we will do further recommendation. Thank you, Dr. Allred, for allowing me to participate in the care of this patient. I will follow the patient with you at this hospitalization. Subjective Allergies: Coded Allergies: No Known Allergies (Unverified , 10/16/18) afebrile hypoxic, now on NRB 15L, Fio2 100% mild leukocytosis Cr increased; supratherapeutic vanco levels remains bacteremic Objective Last 24 Hour Vital Signs Date Time Temp Pulse Resp B/P (MAP) Pulse Ox O2 Delivery O2 Flow Rate FiO2 06/02/20 08:30 58 06/02/20 08:00 15.0 100 06/02/20 08:00 Non-Rebreather 15.0 06/02/20 08:00 98.1 72 20 94/50 (65) 99 06/02/20 07:10 97 Non-Rebreather 15.0 100 06/02/20 07:08 84 20 97 Non-Rebreather 15.0 100 06/02/20 04:00 15.0 100 06/02/20 04:00 98.0 93 21 101/63 (76) 95 06/02/20 04:00 Non-Rebreather 15.0 06/02/20 03:35 75 06/02/20 00:00 Non-Rebreather 15.0 06/02/20 00:00 98.5 90 21 98/60 (73) 94 06/01/20 23:33 79 06/01/20 20:20 92 Venturi Mask 15.0 55 06/01/20 20:19 82 20 92 Venturi Mask 15.0 55 06/01/20 20:00 Venturi Mask 15.0 06/01/20 20:00 98.0 90 23 108/59 (75) 90 06/01/20 20:00 50 06/01/20 20:00 90 06/01/20 16:00 90 06/01/20 16:00 97.9 92 23 122/67 (85) 97 06/01/20 16:00 Venturi Mask 15.0 06/01/20 16:00 50 Height (Feet): 5 Height (Inches): 3.00 Weight (Pounds): 145 HEENT: No pale conjunctivae. No icterus. NECK: No lymphadenopathy. CHEST: Coarse breathing sounds. HEART: S1 and S2. ABDOMEN: Soft. PEG tube in place. EXTREMITIES: No cyanosis at this time . Microbiology Date/Time Source Procedure Growth Status 05/31/20 17:30 Blood Blood Culture - Preliminary Resulted 05/31/20 17:15 Blood Blood Culture - Preliminary Resulted 05/31/20 14:10 Nasopharynx SARS-CoV-2 RdRp Gene Assay - Final Complete 05/30/20 17:29 Sputum Gram Stain - Final Complete 05/30/20 17:29 Sputum Culture - Final Streptococcus Group G Usual Respiratory Yvonne Complete Laboratory Tests Test 06/01/20 21:34 06/01/20 23:00 06/02/20 04:55 06/02/20 06:14 Arterial Blood pH 7.480 (7.350-7.450) 7.400 (7.350-7.450) Arterial Blood Partial Pressure CO2 39.6 mmHg (35.0-45.0) 42.0 mmHg (35.0-45.0) Arterial Blood Partial Pressure O2 48.6 mmHg (75.0-100.0) 47.3 mmHg (75.0-100.0) Arterial Blood HCO3 28.8 mmol/L (22.0-26.0) H 25.4 mmol/L (22.0-26.0) Arterial Blood Oxygen Saturation 86.5 % (95-100) *L 84.0 % (95-100) *L Arterial Blood Base Excess 5.0 (-2-2) H 0.5 (-2-2) Jonathan Test Positive Positive Vancomycin Level Trough 35.3 ug/mL (5.0-12.0) H White Blood Count 12.7 K/UL (4.8-10.8) H Red Blood Count 4.06 M/UL (4.20-5.40) L Hemoglobin 14.0 G/DL (12.0-16.0) Hematocrit 42.2 % (37.0-47.0) Mean Corpuscular Volume 104 FL (80-99) H Mean Corpuscular Hemoglobin 34.4 PG (27.0-31.0) H Mean Corpuscular Hemoglobin Concent 33.1 G/DL (32.0-36.0) Red Cell Distribution Width 12.4 % (11.6-14.8) Platelet Count 264 K/UL (150-450) Mean Platelet Volume 6.7 FL (6.5-10.1) Neutrophils (%) (Auto) 55.4 % (45.0-75.0) Lymphocytes (%) (Auto) 29.1 % (20.0-45.0) Monocytes (%) (Auto) 13.9 % (1.0-10.0) H Eosinophils (%) (Auto) 0.4 % (0.0-3.0) Basophils (%) (Auto) 1.1 % (0.0-2.0) Sodium Level 140 MMOL/L (136-145) Potassium Level 4.7 MMOL/L (3.5-5.1) Chloride Level 104 MMOL/L (98-107) Carbon Dioxide Level 30 MMOL/L (21-32) Anion Gap 6 mmol/L (5-15) Blood Urea Nitrogen 11 mg/dL (7-18) Creatinine 1.3 MG/DL (0.55-1.30) # Estimat Glomerular Filtration Rate 42.1 mL/min (>60) Glucose Level 103 MG/DL (74-106) Calcium Level 9.0 MG/DL (8.5-10.1) Total Bilirubin 0.4 MG/DL (0.2-1.0) Aspartate Amino Transf (AST/SGOT) 28 U/L (15-37) Alanine Aminotransferase (ALT/SGPT) 10 U/L (12-78) L Alkaline Phosphatase 56 U/L (46-116) Pro-B-Type Natriuretic Peptide 1561 pg/mL (0-125) H Total Protein 6.7 G/DL (6.4-8.2) Albumin 2.0 G/DL (3.4-5.0) L Globulin 4.7 g/dL Albumin/Globulin Ratio 0.4 (1.0-2.7) L Current Medications Medications (Trade) Dose Ordered Sig/Katy Route PRN Reason Start Time Stop Time Status Last Admin Dose Admin Acetaminophen (Tylenol) 650 mg Q4H PRN ORAL FEVER 05/30/20 16:15 06/29/20 16:14 Albuterol/ Ipratropium (Albuterol/ Ipratropium) 3 ml Q4H PRN HHN Shortness of Breath 05/30/20 16:15 06/04/20 16:14 05/31/20 16:59 Azithromycin 500 mg/Dextrose 275 ml @ 275 mls/hr Q24HRS IV 05/31/20 14:00 06/06/20 14:59 06/01/20 14:26 Baclofen (Lioresal) 10 mg Q8HR GT 05/30/20 22:00 06/29/20 21:59 06/02/20 05:48 Dextrose (Dextrose 50%) 25 ml Q30M PRN IV Hypoglycemia 05/30/20 16:15 08/28/20 16:14 Dextrose (Dextrose 50%) 50 ml Q30M PRN IV Hypoglycemia 05/30/20 16:15 08/28/20 16:14 Heparin Sodium (Porcine) (Heparin 5000 units/ml) 5,000 units EVERY 12 HOURS SUBQ 05/30/20 21:00 07/14/20 20:59 05/31/20 21:36 Levothyroxine Sodium (Synthroid) 75 mcg DAILY GT 05/31/20 09:00 06/30/20 08:59 06/02/20 08:18 Ondansetron HCl (Zofran) 4 mg Q6H PRN IVP Nausea & Vomiting 05/30/20 16:15 06/29/20 16:14 Pantoprazole (Protonix) 40 mg DAILY IV 05/31/20 09:00 06/30/20 08:59 06/02/20 08:18 Piperacillin Sod/ Tazobactam Sod 3.375 gm/Sodium Chloride 110 ml @ 220 mls/hr EVERY 8 HOURS IVPB 05/30/20 22:00 06/06/20 21:59 06/02/20 05:48 Polyethylene Glycol (Miralax) 17 gm DAILYPRN PRN ORAL Constipation 05/30/20 16:15 06/29/20 16:14 Temazepam (Restoril) 15 mg HSPRN PRN ORAL Insomnia 05/30/20 16:15 06/06/20 16:14 Valproic Acid (Depakene) 500 mg EVERY 8 HOURS GT 05/30/20 22:00 06/29/20 21:59 06/02/20 05:48 Vancomycin HCl 1 gm/Dextrose 275 ml @ 184 mls/hr Q12H IVPB 06/02/20 11:00 06/07/20 10:59 06/02/20 11:09 Suki Camejo M.D. Jun 02, 2020 12:37
[2020-06-02] MEDS ORDERED: cefTRIAXone 1 GM in D5W 55 ML IVPB SCH (13:00)
--- NOTE | 2020-06-02 13:00 | NUR ---
NURSE NOTES: RT made aware MD request titrate oxygen. Patient not tolerating venturi mask, back on Non-rebreather mask. O2 sat 97%
[2020-06-02] MEDS: Azithromycin 500 MG in D5W 275 ML IV SCH (14:06)
[2020-06-02] MEDS ORDERED: DAPTOmycin 550 MG in NS 55 ML IV SCH (15:00)
[2020-06-02 16:00] VITALS: BP 95/50
[2020-06-02] MEDS ORDERED: Tubing IV Secondary IV ONE (16:13)
[2020-06-02] MEDS ORDERED: NS 275ml ONE (16:13)
--- NOTE | 2020-06-02 18:19 | NUR ---
NURSE NOTES: Per Dr. Copeland, OB stool collection. Order noted, entered, specimen sent to lab.
--- NOTE | 2020-06-02 18:47 | Internal Med Progress Note ---
Subjective Date of Service: Jun 02, 2020 Physician Name Joni Copeland Attending Physician Elayne Allred MD Current Medications Medications (Trade) Dose Ordered Sig/Katy Route PRN Reason Start Time Stop Time Status Last Admin Dose Admin Acetaminophen (Tylenol) 650 mg Q4H PRN ORAL FEVER 05/30/20 16:15 06/29/20 16:14 Albuterol/ Ipratropium (Albuterol/ Ipratropium) 3 ml Q4H PRN HHN Shortness of Breath 05/30/20 16:15 06/04/20 16:14 05/31/20 16:59 Azithromycin 500 mg/Dextrose 275 ml @ 275 mls/hr Q24HRS IV 05/31/20 14:00 06/06/20 14:59 06/02/20 14:06 Baclofen (Lioresal) 10 mg Q8HR GT 05/30/20 22:00 06/29/20 21:59 06/02/20 14:05 Ceftriaxone Sodium 1 gm/ Dextrose 55 ml @ 110 mls/hr Q24H IVPB 06/02/20 13:00 06/09/20 12:59 06/02/20 13:02 Daptomycin 550 mg/ Sodium Chloride 55 ml @ 100 mls/hr Q24H IV 06/02/20 15:00 06/09/20 14:59 06/02/20 15:48 Dextrose (Dextrose 50%) 25 ml Q30M PRN IV Hypoglycemia 05/30/20 16:15 08/28/20 16:14 Dextrose (Dextrose 50%) 50 ml Q30M PRN IV Hypoglycemia 05/30/20 16:15 08/28/20 16:14 Heparin Sodium (Porcine) (Heparin 5000 units/ml) 5,000 units EVERY 12 HOURS SUBQ 05/30/20 21:00 07/14/20 20:59 05/31/20 21:36 Levothyroxine Sodium (Synthroid) 75 mcg DAILY GT 05/31/20 09:00 06/30/20 08:59 06/02/20 08:18 Ondansetron HCl (Zofran) 4 mg Q6H PRN IVP Nausea & Vomiting 05/30/20 16:15 06/29/20 16:14 Pantoprazole (Protonix) 40 mg DAILY IV 05/31/20 09:00 06/30/20 08:59 06/02/20 08:18 Polyethylene Glycol (Miralax) 17 gm DAILYPRN PRN ORAL Constipation 05/30/20 16:15 06/29/20 16:14 Temazepam (Restoril) 15 mg HSPRN PRN ORAL Insomnia 05/30/20 16:15 06/06/20 16:14 Valproic Acid (Depakene) 500 mg EVERY 8 HOURS GT 05/30/20 22:00 06/29/20 21:59 06/02/20 14:05 Allergies: Coded Allergies: No Known Allergies (Unverified , 10/16/18) ROS Limited/Unobtainable: Yes Subjective 59 YO F with Down's syndrome admitted with hypoxia. Now pneumonia. Cover for Int Med-DR Hawk. Step Down unit Objective Last Vital Signs Date Time Temp Pulse Resp B/P (MAP) Pulse Ox O2 Delivery O2 Flow Rate FiO2 06/02/20 16:00 68 06/02/20 16:00 15.0 100 06/02/20 16:00 Non-Rebreather 06/02/20 16:00 98.2 22 95/50 (65) 98 General Appearance: WD/WN, no apparent distress, alert EENT: PERRL/EOMI, normal ENT inspection Neck: non-tender, normal alignment, supple, normal inspection Cardiovascular: normal peripheral pulses, normal rate, regular rhythm, no gallop/murmur, no JVD Respiratory/Chest: decreased breath sounds, crackles/rales, rhonchi - bilaterally, expiratory wheezing Abdomen: normal bowel sounds, non tender, soft, no organomegaly, no mass Extremities: normal range of motion 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: 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 grossly normal Skin: normal pigmentation, warm/dry Laboratory Tests Test 06/01/20 21:34 06/01/20 23:00 06/02/20 04:55 06/02/20 06:14 Arterial Blood pH 7.480 (7.350-7.450) 7.400 (7.350-7.450) Arterial Blood Partial Pressure CO2 39.6 mmHg (35.0-45.0) 42.0 mmHg (35.0-45.0) Arterial Blood Partial Pressure O2 48.6 mmHg (75.0-100.0) 47.3 mmHg (75.0-100.0) Arterial Blood HCO3 28.8 mmol/L (22.0-26.0) H 25.4 mmol/L (22.0-26.0) Arterial Blood Oxygen Saturation 86.5 % (95-100) *L 84.0 % (95-100) *L Arterial Blood Base Excess 5.0 (-2-2) H 0.5 (-2-2) Jonathan Test Positive Positive Vancomycin Level Trough 35.3 ug/mL (5.0-12.0) H White Blood Count 12.7 K/UL (4.8-10.8) H Red Blood Count 4.06 M/UL (4.20-5.40) L Hemoglobin 14.0 G/DL (12.0-16.0) Hematocrit 42.2 % (37.0-47.0) Mean Corpuscular Volume 104 FL (80-99) H Mean Corpuscular Hemoglobin 34.4 PG (27.0-31.0) H Mean Corpuscular Hemoglobin Concent 33.1 G/DL (32.0-36.0) Red Cell Distribution Width 12.4 % (11.6-14.8) Platelet Count 264 K/UL (150-450) Mean Platelet Volume 6.7 FL (6.5-10.1) Neutrophils (%) (Auto) 55.4 % (45.0-75.0) Lymphocytes (%) (Auto) 29.1 % (20.0-45.0) Monocytes (%) (Auto) 13.9 % (1.0-10.0) H Eosinophils (%) (Auto) 0.4 % (0.0-3.0) Basophils (%) (Auto) 1.1 % (0.0-2.0) Sodium Level 140 MMOL/L (136-145) Potassium Level 4.7 MMOL/L (3.5-5.1) Chloride Level 104 MMOL/L (98-107) Carbon Dioxide Level 30 MMOL/L (21-32) Anion Gap 6 mmol/L (5-15) Blood Urea Nitrogen 11 mg/dL (7-18) Creatinine 1.3 MG/DL (0.55-1.30) # Estimat Glomerular Filtration Rate 42.1 mL/min (>60) Glucose Level 103 MG/DL (74-106) Calcium Level 9.0 MG/DL (8.5-10.1) Total Bilirubin 0.4 MG/DL (0.2-1.0) Aspartate Amino Transf (AST/SGOT) 28 U/L (15-37) Alanine Aminotransferase (ALT/SGPT) 10 U/L (12-78) L Alkaline Phosphatase 56 U/L (46-116) Pro-B-Type Natriuretic Peptide 1561 pg/mL (0-125) H Total Protein 6.7 G/DL (6.4-8.2) Albumin 2.0 G/DL (3.4-5.0) L Globulin 4.7 g/dL Albumin/Globulin Ratio 0.4 (1.0-2.7) L Microbiology Date/Time Source Procedure Growth Status 05/31/20 17:30 Blood Blood Culture - Preliminary Resulted 05/31/20 17:15 Blood Blood Culture - Preliminary Resulted 05/31/20 14:10 Nasopharynx SARS-CoV-2 RdRp Gene Assay - Final Complete Intake and Output 06/01/20 06/02/20 19:00 07:00 Intake Total 330 ml 650 ml Output Total 850 ml 800 ml Balance -520 ml -150 ml Free Water 100 ml IV Total 220 ml Tube Feeding 330 ml 330 ml Output Urine Total 700 ml 800 ml Stool Total 150 ml Assessment/Plan Problem List: (1) HCAP (healthcare-associated pneumonia) Assessment & Plan: Strep Group G. Continue daptomycin per ID=Dr Camejo. Pulmonary/Critical care=DR Allred (2) Sepsis Assessment & Plan: Gram pos cocci. Continue daptomycin and ceftriaxone per ID= Dr Camejo (3) Down's syndrome (4) Dysphagia Assessment & Plan: S/P PEG (5) Seizure disorder Assessment & Plan: Continue keppra and depakote (6) Hypothyroidism Assessment & Plan: Continue synthroid Joni Copeland MD Jun 02, 2020 18:47
--- NOTE | 2020-06-02 19:27 | NUR ---
NURSE HAND-OFF REPORT: Important Events on Shift: ELIECER, Dr. Allred made aware of ABG result Patient Status: stable Diet: Jevity 1.2 @ 30ml/h Pending Orders: na Pending Results/Labs:na Pending MD notification:eliecer Latest Vital Signs: Temperature 98.2 , Pulse 68 , B/P 95 /50 , Respiratory Rate 22 , O2 SAT 98 , Non-Rebreather, O2 Flow Rate 15.0 . Vital Sign Comment: stable EKG Rhythm: Sinus Rhythm Rhythm change?: N MD Notified?: - MD Response: Latest Osorio Fall Score: 50 Fall Risk: High Risk Safety Measures: Call light Within Reach, Bed Alarm Zone 1, Side Rails Side Rails x3, Bed position Low and Locked. Fall Precautions: Yellow Socks Yellow Gown Door Sign Patient Fall Education Report given to TAI Ca.
--- NOTE | 2020-06-02 19:30 | NUR ---
NURSE NOTES: Pt report received from SHAYLA LUJAN. pt remains stable. pt is obtunded neuro vela, however, no acute neuro abnormalities noted. pt is on a none rebreather, sating 95% O2, no other acute signs symptoms of resp distress noted. 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 pt bed is low, locked, armed, call light within easy reach, bed rails up times 3, will follow plan of care.
[2020-06-02 20:00] VITALS: BP 90/48
--- NOTE | 2020-06-02 20:14 | History and Physical Report ---
DATE OF ADMISSION: 05/30/2020 CHIEF COMPLAINT: Patient is a 59-year-old female with history of Down syndrome who presents with a chief complaint of shortness of breath. HISTORY OF PRESENT ILLNESS: Patient is a resident of [facility]. According to staff at [facility], patient began to experience shortness of breath on 05/30/2020. Patient presented to [facility] emergency room. Patient was found to be hypoxic with oxygen saturation down to the 80s. Patient is admitted with hypoxia to rule out probable pneumonia. REVIEW OF SYSTEMS: Unable to assess secondary to patient's mental status. PAST MEDICAL HISTORY: Significant for: 1. Down syndrome. 2. Seizure disorder. 3. Hypothyroidism. 4. Dysphagia. PAST SURGICAL HISTORY: Significant for PEG placement. CURRENT MEDICATIONS: 1. Vitamin C 500 mg per G-tube daily. 2. Baclofen 10 mg per G-tube q.8h p.r.n. 3. DuoNeb nebulized q.4h. p.r.n. 4. Keppra 750 mg per G-tube twice daily. 5. Levoxyl 0.075 mg per G-tube daily. 6. Depakote 500 mg per G-tube daily. 7. Vitamin D3 1000 units per G-tube daily. ALLERGIES: No known drug allergies. SOCIAL HISTORY: Patient is single and is a resident of [facility]. Patient denies tobacco or alcohol use. PHYSICAL EXAMINATION: VITAL SIGNS: Temperature 98.0, respirations 16, pulse 80, blood pressure 108/70. GENERAL: Patient is well developed, well nourished female, in no apparent distress. HEENT: Eyes, pupils are equal and responsive to light and accommodation. Extraocular movements are intact. NECK: Supple without lymphadenopathy. CHEST: Lungs are clear to auscultation bilaterally without wheezes or rales. CARDIOVASCULAR: Regular rhythm and rate. S1, S2 are normal without murmurs, rubs, gallops. ABDOMEN: Soft, nontender, nondistended. Positive bowel sounds. No evidence of hepatosplenomegaly. Currently, no rebound or guarding noted. EXTREMITIES: Negative for clubbing, cyanosis, or edema. RECTAL/GENITAL: Not performed. NEUROLOGIC: Cranial nerves II through XII are grossly intact without focal deficits. LABORATORY STUDIES: WBC 7.8, hemoglobin 14.7, hematocrit 44.3, platelets 250,000. Sodium 131, potassium 3.8, chloride 97, CO2 28, BUN 11, creatinine 0.5, glucose 119. Chest x-ray revealed bilateral interstitial opacities consistent with pneumonia. ASSESSMENT: This is a 59-year-old white female. 1. Pneumonia. 2. Hypoxia. 3. Down syndrome. 4. Seizure disorder. 5. Hypothyroidism. 6. Dysphagia. TREATMENT: 1. Pneumonia. Patient has been placed empirically on daptomycin and ceftriaxone. We will follow recommendations of Infectious Disease, Dr. Camejo. 2. Hypoxia secondary to pneumonia as above. 3. Down syndrome. 4. Seizure disorder. Continue Keppra and Depakote as above. 5. Hypothyroidism. Continue Synthroid as above. 6. Dysphagia. Patient is status post PEG placement. Joni Copeland M.D. DR: SARAH JOB#: [id number] CC:
--- NOTE | 2020-06-02 20:35 | NUR ---
NURSE NOTES: Heparin med on hold due to pending Stool specimen.
--- NOTE | 2020-06-02 22:06 | NUR ---
NURSE NOTES: called Doctor Chalino's urgent line to report Pts abnormal blood gas. stated pt is sating 95% O2 on non re breather. requested if doctor wants any new orders.
[2020-06-03] VITALS (31 sets, daily range): BP systolic 70–139; BP diastolic 25–94
--- NOTE | 2020-06-03 01:09 | NUR ---
NURSE NOTES: called doctor Mohan urgent line. left a message reading pts current ABGs. awaiting call back.
--- NOTE | 2020-06-03 01:10 | NUR ---
NURSE NOTES: pt vital signs are currently BP 121/54, HR 79, O2 sat 96% on non rebreather, respirations 20. will continue to monitor.
--- NOTE | 2020-06-03 01:13 | NUR ---
NURSE NOTES: 22 G IV line started on R hand and 22 G IV line started on L hand.
--- NOTE | 2020-06-03 01:30 | NUR ---
NURSE NOTES: large amount of secretions noted in pts mouth. called Lv RT to deep suction pt
[2020-06-03 05:42] LABS: BASOPHILS % (AUTO) 1.3 % (0.0-2.0); EOSINOPHILS % (AUTO) 0.6 % (0.0-3.0); HEMATOCRIT 34.4 % (37.0-47.0); HEMOGLOBIN 11.5 G/DL (12.0-16.0); LYMPHOCYTES % (AUTO) 12.7 % (20.0-45.0); MEAN CORPUSCULAR VOLUME 104 FL (80-99); MONOCYTES % (AUTO) 10.1 % (1.0-10.0); NEUTROPHILS % (AUTO) 75.3 % (45.0-75.0); PLATELET COUNT 223 K/UL (150-450); RED CELL DISTRIBUTION WIDTH 12.6 % (11.6-14.8); WHITE BLOOD COUNT 13.7 K/UL (4.8-10.8)
[2020-06-03] MEDS: Valproic Acid 250mg/5ml Liquid GT SCH ×3 (06:01→22:00)
[2020-06-03 06:14] LABS: ALANINE AMINOTRANSFERASE 8 U/L (12-78); ALBUMIN 1.5 G/DL (3.4-5.0); ALBUMIN/GLOBULIN RATIO 0.3 (1.0-2.7); ALKALINE PHOSPHATASE 44 U/L (46-116); ANION GAP 8 mmol/L (5-15); ASPARTATE AMINO TRANSFERASE 29 U/L (15-37); BILIRUBIN,TOTAL 0.3 MG/DL (0.2-1.0); BLOOD UREA NITROGEN 20 mg/dL (7-18); CALCIUM 8.6 MG/DL (8.5-10.1); CARBON DIOXIDE 26 MMOL/L (21-32); CHLORIDE 107 MMOL/L (98-107); CREATININE 1.8 MG/DL (0.55-1.30); POTASSIUM 4.1 MMOL/L (3.5-5.1); SODIUM 141 MMOL/L (136-145)
[2020-06-03 06:24] LABS: CREATINE KINASE 51 U/L (26-308)
--- NOTE | 2020-06-03 07:30 | NUR ---
NURSE HAND-OFF REPORT: Important Events on Shift:[CONTACTING DOCTOR ON SHIFT.] Patient Status: [STABLE.] Diet: [ DOCTOR ORDERED] Pending Orders: [AWAITING DOCTOR CALL BACK] Pending Results/Labs:[AWAITING DOCTOR CALL BACK] Pending MD notification:[AWAITING DOCTOR CALL BACK] Latest Vital Signs: Temperature 98.1 , Pulse 79 , B/P 139 /69 , Respiratory Rate 20 , O2 SAT 95 , Non-Rebreather, O2 Flow Rate 15.0 . Vital Sign Comment: [STABLE] EKG Rhythm: SR with BBB Rhythm change?: N MD Notified?: - MD Response: Latest Osorio Fall Score: 50 Fall Risk: High Risk Safety Measures: Call light Within Reach, Bed Alarm Zone 1, Side Rails Side Rails x3, Bed position Low and Locked. Fall Precautions: Yellow Socks Yellow Gown Door Sign Patient Fall Education Report given to [SHAYLA LUJAN].
--- NOTE | 2020-06-03 07:34 | NUR ---
NURSE NOTES: Received report from TAI Ca. Patient in bed, de sat 70%, deep suction provided, O2 sat 92%, patient does not open eyes at this time. BP HR 80 checked 63/25. GT feeding on hold due to change in condition. Gregorio Catheter draining well to gravity. On non-rebreather 15L, labored breathing. IV on right and left hand 22G, asymptomatic, patent, intact. Bed in lowest position, side rails upx3, call light within reach, bed alarm on, Will continue to monitor.
--- NOTE | 2020-06-03 07:35 | NUR ---
NURSE NOTES: Left message Dr. Allred regarding decreased BP. Awaiting for callback
--- NOTE | 2020-06-03 07:53 | NUR ---
NURSE NOTES: BP checked 71/36, awaiting for callback, HR 82 , O3 sat 92% on Non-rebreather mask 15L, patient labored breathing, is not responsive to deep pain stimuli.
--- NOTE | 2020-06-03 07:55 | NUR ---
CODE BLUE: See Code sheet which remains on paper. Patient unresponsive with deep pain stimuli, DISTRIBUTION SALES MANAGER initially called, patient remained unresponsive called CODE PERICO NSR with HR 60 BP 79/[address] Jensen 500ml bolus given BS 129
--- NOTE | 2020-06-03 08:08 | NUR ---
NURSE NOTES: Patient on monitor, SR 84, BP 83/51, HR 84 O2 93%, open eyes when turned, received NS bolus
--- NOTE | 2020-06-03 08:22 | NUR ---
NURSE NOTES: Per Dr. Allred, 500ml bolus once time, total of 1L NS bolus given. Order noted, entered, carried out.
[2020-06-03] MEDS: Pantoprazole Inj IV SCH (08:57)
[2020-06-03] MEDS: Heparin 5000 units/ml inj SUBQ SCH ×2 (09:00→21:00)
--- NOTE | 2020-06-03 09:00 | NUR ---
TRANSFER TO FLOOR: Patient transferred to ICU, per Dr. Allred. Report given to TAI Dhaliwal. No Belongings and medications given to TAI Dhaliwal. Family and or S/O informed of transfer.
--- NOTE | 2020-06-03 09:56 | Consultation ---
Consult Note Consult Note I am asked to evaluate the patient at the request of Dr Allred for renal failure Patient seen in room 239. RN present. Patient had a rapid response this morning. Due to low blood pressure. Serum creatinine today has risen to 1.8. This is her fourth day of hospitalization at [facility]. Patient is on nonrebreather mask. Patient examined, data reviewed Patient is a 59-year-old female presenting from long term after decreased oxygen saturation beginning earlier in the day. Prior history of Down syndrome. Patient had been nonverbal at baseline. Reportedly had diminished oxygen since earlier in the day. No response to albuterol. Had been increased rales per EMS. She was started on supplemental oxygen via nonrebreather. Reportedly had negative coronavirus testing recently. No Known Allergies (Unverified , 10/16/18) COVID-19 Screening Contact w/high risk pt: No Experienced COVID-19 symptoms?: No COVID-19 Testing performed FRONT DESK PERSON: Yes COVID-19 Screening: Negative COVID-19 COVID-19 Testing Source: 05/18/20 Past Medical History: see triage record, seizures, other - hypothyroid Past Surgical History: other - gtube Reviewed Nursing Documentation: PMH: Agreed; PSxH: Agreed Past Medical History: No History, Except For Hx Cardiac Problems: No - PVD Hx Diabetes: No - Hypothyroid Hx Gastrointestinal Problems: No - gastrostomy Hx Neurological Problems: Yes - down syndrome Hx Seizures: Yes Hx Speech Problem: Yes System review: limited - Limited by poor historian PHYSICAL EXAM: VITAL SIGNS: Temperature 97.7, pulse 86, respiratory rate 18, and blood pressure 100/62. HEENT: No pale conjunctivae. No icterus. NECK: No lymphadenopathy. CHEST: Coarse breathing sounds. HEART: S1 and S2. ABDOMEN: Soft. PEG tube in place. EXTREMITIES: No cyanosis at this time. NEUROLOGIC: Awake. LABS: White blood cells 7.5, hemoglobin 13, platelets 206. UA unremarkable. BUN 11, creatinine 0.1. ALT, AST, alkaline phosphatase unremarkable. Sputum culture pending. SARS COVID x 1 negative. Blood culture x1 was growing gram positive cocci in clusters. Chest x-ray, patchy bilateral interstitial opacities. . Assessment/Plan Impression: Acute renal failure, likely due to hypotension Acute respiratory distress, hypoxia Seizure disorder Hypothyroidism Down syndrome Full code SUggestions: Fluid challenge with IV fluids and albumin Midodrine for BP above 100 systolic Check TSH level Check Correct level Monitor renal parameters Urine studies Per orders Patient had 2 [place] [facility] [place] I spent an additional 36 minutes on review of medical records including prior hospital records,consult notes, progress notes, procedures ,imaging labs, hemodynamics, and other clinical documentation. Over 35 min Keron Pitt MD Jun 03, 2020 09:56
--- NOTE | 2020-06-03 10:00 | NUR ---
NURSE NOTES: Transfered from GENARO and received from Ivania LUJAN. Patient stable AOx0 with no s/sx of pain or distress. NSR on ekg monitor tech. Normal cardiac sounds. Rhoncus BL on inspiration and expiration with mild wheeze on expiration. RR even and unlabored on NRB. VSS. NPO. Feeding on hold Gregorio noted draining well to gravity. IV line flushed and patent. Side rails upx2, call light within reach, bed low and locked. Will contine to monitor. Oral care performed.
[2020-06-03] MEDS ORDERED: D5 1/2NS 1,000 ML IV SCH ×2 (10:30→11:30)
--- NOTE | 2020-06-03 11:00 | NUR ---
NURSE NOTES: Spoke with Dr. Allred regarding ABG results and O2 treatment.
--- NOTE | 2020-06-03 11:28 | Pulmonolgy Critical Care Note ---
Critical Care - Asmt/Plan Problems: (1) Acute respiratory failure (2) Pneumonia (3) Sepsis (4) HCAP (healthcare-associated pneumonia) (5) Seizure disorder (6) Down's syndrome Assessment/Plan: pt transferred to ICU for hypotension and desaturation. Respiratory: monitor respiratory rate, adjust FIO2, CXR Cardiac: continue pressors, continue to monitor HR/BP Renal: F/U I&O, keep IV fluid, check electrolytes Infectious Disease: check cultures, continue antibiotics Gastrointestinal: continue feedings/current rate Endocrine: monitor blood sugar, continue sliding scale insulin Hematologic: transfuse if hgb<8.5 Neurologic: PRN Ativan, keep patient comfortable Affect: PRN ativan Time Spent (Minutes): 40 Notes Reviewed: cardio, 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 with: nurses, consultants, immigration case managertown manager - Objective Last 24 Hour Vital Signs Date Time Temp Pulse Resp B/P (MAP) Pulse Ox O2 Delivery O2 Flow Rate FiO2 06/03/20 10:00 Non-Rebreather 15.0 06/03/20 09:24 69 06/03/20 08:00 Non-Rebreather 15.0 06/03/20 08:00 15.0 06/03/20 08:00 98.3 80 25 79/42 (54) 92 06/03/20 07:00 92 Non-Rebreather 15.0 100 06/03/20 07:00 78 18 92 Non-Rebreather 15.0 100 06/03/20 04:00 98.1 79 20 139/69 (92) 95 06/03/20 04:00 15.0 06/03/20 04:00 Non-Rebreather 15.0 06/03/20 03:52 67 06/03/20 00:00 Non-Rebreather 15.0 06/03/20 00:00 98.1 75 20 109/62 (78) 95 06/03/20 00:00 15.0 06/02/20 23:28 76 06/02/20 20:00 Non-Rebreather 15.0 06/02/20 20:00 67 06/02/20 20:00 15.0 06/02/20 20:00 97.9 74 20 90/48 (62) 98 06/02/20 19:37 95 Non-Rebreather 15.0 100 06/02/20 19:36 65 18 95 Non-Rebreather 15.0 100 06/02/20 16:00 68 06/02/20 16:00 15.0 100 06/02/20 16:00 Non-Rebreather 15.0 06/02/20 16:00 98.2 75 22 95/50 (65) 98 06/02/20 12:00 Non-Rebreather 15.0 06/02/20 12:00 15.0 100 06/02/20 12:00 97.3 75 21 109/55 (73) 96 06/02/20 12:00 73 Status: awake Condition: critical HEENT: atraumatic, normocephalic Lungs: clear Heart: HR/BP stable, HR/BP unstable Abdomen: soft, active bowel sounds Extremities: no C/C/E Micro: Microbiology Date/Time Source Procedure Growth Status 05/31/20 17:30 Blood Blood Culture - Preliminary Gram Positive Cocci Resulted 05/31/20 17:15 Blood Blood Culture - Preliminary Resulted 05/31/20 14:10 Nasopharynx SARS-CoV-2 RdRp Gene Assay - Final Complete Accucheck: 131 Critical Care - Subjective FI02: 100 Sputum Amount: Large Tube Feeding Amount: 30 I&O: Intake and Output 06/02/20 06/03/20 19:00 07:00 Intake Total 1000 ml 330 ml Output Total 350 ml 700 ml Balance 650 ml -370 ml Free Water 100 ml IV Total 660 ml Tube Feeding 240 ml 330 ml Output Urine Total 350 ml 700 ml # Bowel Movements 2 1 CXR: Increased atelectasis of the right lung, since prior exam of 3 days earlier. New or increased right pleural effusion Labs: Laboratory Tests Test 06/02/20 15:10 06/03/20 00:02 06/03/20 04:45 06/03/20 08:03 Stool Occult Blood Positive (NEGATIVE) Arterial Blood pH 7.390 (7.350-7.450) Arterial Blood Partial Pressure CO2 52.3 mmHg (35.0-45.0) H Arterial Blood Partial Pressure O2 52.2 mmHg (75.0-100.0) L Arterial Blood HCO3 30.9 mmol/L (22.0-26.0) H Arterial Blood Oxygen Saturation 87.1 % (95-100) *L Arterial Blood Base Excess 4.9 (-2-2) H Jonathan Test Positive White Blood Count 13.7 K/UL (4.8-10.8) H Red Blood Count 3.30 M/UL (4.20-5.40) L Hemoglobin 11.5 G/DL (12.0-16.0) L Hematocrit 34.4 % (37.0-47.0) L Mean Corpuscular Volume 104 FL (80-99) H Mean Corpuscular Hemoglobin 34.7 PG (27.0-31.0) H Mean Corpuscular Hemoglobin Concent 33.3 G/DL (32.0-36.0) Red Cell Distribution Width 12.6 % (11.6-14.8) Platelet Count 223 K/UL (150-450) Mean Platelet Volume 6.6 FL (6.5-10.1) Neutrophils (%) (Auto) 75.3 % (45.0-75.0) H Lymphocytes (%) (Auto) 12.7 % (20.0-45.0) L Monocytes (%) (Auto) 10.1 % (1.0-10.0) H Eosinophils (%) (Auto) 0.6 % (0.0-3.0) Basophils (%) (Auto) 1.3 % (0.0-2.0) Sodium Level 141 MMOL/L (136-145) Potassium Level 4.1 MMOL/L (3.5-5.1) Chloride Level 107 MMOL/L (98-107) Carbon Dioxide Level 26 MMOL/L (21-32) Anion Gap 8 mmol/L (5-15) Blood Urea Nitrogen 20 mg/dL (7-18) H Creatinine 1.8 MG/DL (0.55-1.30) H Estimat Glomerular Filtration Rate 28.9 mL/min (>60) Glucose Level 99 MG/DL (74-106) Calcium Level 8.6 MG/DL (8.5-10.1) Total Bilirubin 0.3 MG/DL (0.2-1.0) Aspartate Amino Transf (AST/SGOT) 29 U/L (15-37) Alanine Aminotransferase (ALT/SGPT) 8 U/L (12-78) L Alkaline Phosphatase 44 U/L (46-116) L Total Creatine Kinase 51 U/L (26-308) Pro-B-Type Natriuretic Peptide 1184 pg/mL (0-125) H Total Protein 5.9 G/DL (6.4-8.2) L Albumin 1.5 G/DL (3.4-5.0) L Globulin 4.4 g/dL Albumin/Globulin Ratio 0.3 (1.0-2.7) L Thyroid Stimulating Hormone (TSH) 1.309 uiU/mL (0.358-3.740) POC Whole Blood Glucose 129 MG/DL (74-106) H Elayne Allred MD Jun 03, 2020 11:28
--- NOTE | 2020-06-03 11:46 | NUR ---
CASE MANAGEMENT: REVIEW 06/03/20 SI: PNA . DOWN SYNDROME . ENCEPHALOPATHY . SEIZURE DISORDER 98.3 80 25 79/42 92% NON-REBREATHER MASK FiO2 100 WBC 13.7 BUN/CREAT 20/1.8 BNP 1184 ALB 1.5 ABG: pCO2 52.3 pO2 52.2 HCO3 30.9 O2 SAT 87.1 IS: IV ALBUMIN HUMAN BOLUS IVF NS BOLUS X2 VANCOMYCIN IV Q8HR AZITHROMYCIN IV Q24HR PROTONIX IV QD VALPROIC ACID GT Q8HR ZOSYN IV Q8HR HEPARIN SUBQ Q12HR \: TRANSFER TO ICU; ABG 02 SAT 87.1% DCP: PATIENT IS FROM [facility] Addendum: 06/03/20 at 1150 by ROME MALAVE LVN FRANK BLUE AT 0730
--- NOTE | 2020-06-03 11:58 | NUR ---
RD ASSESSMENT & RECOMMENDATIONS SEE CARE ACTIVITY FOR COMPLETE ASSESSMENT DAILY ESTIMATED NEEDS: Needs based on TF GRASS CUTTER, pulmonary 50kg abw 22-27 kcals/kg 5720-6264 total kcals 1.25-1.5 g protein/kg 63-75 g total protein 25-30 mL/kg 8585-3607 total fluid mLs NUTRITION DIAGNOSIS: Swallowing difficulty r/t dysphagia as evidenced by pt w/ Downs Syndrome, PEG dep for all nutritional needs. CURRENT TF: Jevity 1.2 @30ml/hr- ON HOLD ENTERAL NUTRITION RECOMMENDATIONS: JEVITY 1.2 @50ml/hr x22 hrs + Prosource x1 daily to provide 1100ml, 1320 kcal, 61g + 11g prot, 888ml free H2O - As medically able, restart Jevity 1.2 @20ml/hr, advance as tolerated to goal. - Hold TF 1 hr before and after synthroid meds - Flush per MD, HOB over 30 degrees. -> Rec trophic feeds if not hemodynamically stable. ADDITIONAL RECOMMENDATIONS: 1) Ht of 61 inches per SNF; recalibrate bed scale for accurate CBW 2) Monitor BG, lytes, and tolerance TF 3) Weekly weights on Calibrated bed scale 4) F/up with WC eval: add LEIDY in 4oz H2O BID via GT w/ TF orders 5) feed w/ stability, currently s/p Code, increased secretion today
[2020-06-03] MEDS ORDERED: Albuterol/Ipratropium 3ml neb HHN PRN (12:00)
[2020-06-03] MEDS ORDERED: Miralax 17gm pkt GT PRN (12:00)
--- NOTE | 2020-06-03 12:00 | NUR ---
NURSE NOTES: Wound pictures taken and uploaded. Wound care nurse applied Methasone cream on bilateral inguinal area. Dressing applied on bilateral feet and heels as per wound protocol. Order for podiatry received, noted and carried out.
--- NOTE | 2020-06-03 12:46 | Infectious Diseases Prog Note ---
Assessment/Plan ASSESSMENT: sp code blue 06/03 Afebrile Mild leukocytosis; increased Pneumonia.- COVID 19 neg x2 Acute hypoxic resp filure on VM> NRB 15l 100%; hypoxic on ABG -06/02 CXR: Increased atelectasis of the right lung, since prior exam of 3 days earlier. New or increased right pleural effusion. Increased left basilar consolidation and/or pleural fluid -COVID Rapid PCR neg 05/31, 05/31 -05/30 spc x Group G strep -05/30 CXR: Reduced lung volumes. Patchy bilateral predominantly interstitial pulmonary opacities. Could be from edema and/or pneumonia. There is a broader differential. Persistent, high grade bacteremia- r/o MRSA; r/o endocarditis -05/30 Bcx 4/4 sets S. haemolyticus; 05/31 Bcx 3/4 GPC clusters; 06/02 Bcx p -2d echo: no vegetaions seen R/o probable UTI ua/ wbc 10-15, nit neg, leuk +1; ucx Neg LEANN; worsening -supratherapeutic vanco levels -Seizure disorder. - Hypothyroidism. - Down syndrome. History of PEG tube placement. [place] resident PLAN: 1. empiric Daptomycin #2 (abx d #5) for GPC bacteremia in view of LEANN Switch Ceftriaxone #2 (abx d#5) to Meropenem given resp decompensation Zithromax #4/5 for atypical coverage. 06/02 SP IV Vancomycin #4, Zosyn #4 -05/30 SP Cefepime x1, Flagyl x1 2. Monitor CBC. 3. Monitor BMP. 4. Monitor culture 5. Repeat cx 6. COVID neg x2; repeat COVID PCR given ongoing hypoxia 7. Monitor chest x-ray. 8. Monitor the patient's clinical course and labs. Based on those, we will do further recommendation. Thank you, Dr. Allred, for allowing me to participate in the care of this patient. I will follow the patient with you at this hospitalization. Discussed with RN. Subjective Allergies: Coded Allergies: No Known Allergies (Unverified , 10/16/18) transferred to ICU this morning after patient had code blue- patient was hypotensive and hypoxic; hypoxic on ABG, currently on NRB 100% afebrile wbc and cr increased remains bacteremic Objective Last 24 Hour Vital Signs Date Time Temp Pulse Resp B/P (MAP) Pulse Ox O2 Delivery O2 Flow Rate FiO2 06/03/20 10:00 Non-Rebreather 15.0 06/03/20 09:24 69 06/03/20 08:00 Non-Rebreather 15.0 06/03/20 08:00 15.0 06/03/20 08:00 98.3 80 25 79/42 (54) 92 06/03/20 07:00 92 Non-Rebreather 15.0 100 06/03/20 07:00 78 18 92 Non-Rebreather 15.0 100 06/03/20 04:00 98.1 79 20 139/69 (92) 95 06/03/20 04:00 15.0 06/03/20 04:00 Non-Rebreather 15.0 06/03/20 03:52 67 06/03/20 00:00 Non-Rebreather 15.0 06/03/20 00:00 98.1 75 20 109/62 (78) 95 06/03/20 00:00 15.0 06/02/20 23:28 76 06/02/20 20:00 Non-Rebreather 15.0 06/02/20 20:00 67 06/02/20 20:00 15.0 06/02/20 20:00 97.9 74 20 90/48 (62) 98 06/02/20 19:37 95 Non-Rebreather 15.0 100 06/02/20 19:36 65 18 95 Non-Rebreather 15.0 100 06/02/20 16:00 68 06/02/20 16:00 15.0 100 06/02/20 16:00 Non-Rebreather 15.0 06/02/20 16:00 98.2 75 22 95/50 (65) 98 Height (Feet): 5 Height (Inches): 3.00 Weight (Pounds): 145 HEENT: No pale conjunctivae. No icterus. NRB in palce NECK: No lymphadenopathy. CHEST: Coarse breathing sounds. HEART: S1 and S2. ABDOMEN: Soft. PEG tube in place. EXTREMITIES: No cyanosis at this time . Microbiology Date/Time Source Procedure Growth Status 05/31/20 17:30 Blood Blood Culture - Preliminary Gram Positive Cocci Resulted 05/31/20 17:15 Blood Blood Culture - Preliminary Resulted 05/31/20 14:10 Nasopharynx SARS-CoV-2 RdRp Gene Assay - Final Complete Laboratory Tests Test 06/02/20 15:10 06/03/20 00:02 06/03/20 04:45 06/03/20 08:03 Stool Occult Blood Positive (NEGATIVE) Arterial Blood pH 7.390 (7.350-7.450) Arterial Blood Partial Pressure CO2 52.3 mmHg (35.0-45.0) H Arterial Blood Partial Pressure O2 52.2 mmHg (75.0-100.0) L Arterial Blood HCO3 30.9 mmol/L (22.0-26.0) H Arterial Blood Oxygen Saturation 87.1 % (95-100) *L Arterial Blood Base Excess 4.9 (-2-2) H Jonathan Test Positive White Blood Count 13.7 K/UL (4.8-10.8) H Red Blood Count 3.30 M/UL (4.20-5.40) L Hemoglobin 11.5 G/DL (12.0-16.0) L Hematocrit 34.4 % (37.0-47.0) L Mean Corpuscular Volume 104 FL (80-99) H Mean Corpuscular Hemoglobin 34.7 PG (27.0-31.0) H Mean Corpuscular Hemoglobin Concent 33.3 G/DL (32.0-36.0) Red Cell Distribution Width 12.6 % (11.6-14.8) Platelet Count 223 K/UL (150-450) Mean Platelet Volume 6.6 FL (6.5-10.1) Neutrophils (%) (Auto) 75.3 % (45.0-75.0) H Lymphocytes (%) (Auto) 12.7 % (20.0-45.0) L Monocytes (%) (Auto) 10.1 % (1.0-10.0) H Eosinophils (%) (Auto) 0.6 % (0.0-3.0) Basophils (%) (Auto) 1.3 % (0.0-2.0) Sodium Level 141 MMOL/L (136-145) Potassium Level 4.1 MMOL/L (3.5-5.1) Chloride Level 107 MMOL/L (98-107) Carbon Dioxide Level 26 MMOL/L (21-32) Anion Gap 8 mmol/L (5-15) Blood Urea Nitrogen 20 mg/dL (7-18) H Creatinine 1.8 MG/DL (0.55-1.30) H Estimat Glomerular Filtration Rate 28.9 mL/min (>60) Glucose Level 99 MG/DL (74-106) Calcium Level 8.6 MG/DL (8.5-10.1) Total Bilirubin 0.3 MG/DL (0.2-1.0) Aspartate Amino Transf (AST/SGOT) 29 U/L (15-37) Alanine Aminotransferase (ALT/SGPT) 8 U/L (12-78) L Alkaline Phosphatase 44 U/L (46-116) L Total Creatine Kinase 51 U/L (26-308) Pro-B-Type Natriuretic Peptide 1184 pg/mL (0-125) H Total Protein 5.9 G/DL (6.4-8.2) L Albumin 1.5 G/DL (3.4-5.0) L Globulin 4.4 g/dL Albumin/Globulin Ratio 0.3 (1.0-2.7) L Thyroid Stimulating Hormone (TSH) 1.309 uiU/mL (0.358-3.740) POC Whole Blood Glucose 129 MG/DL (74-106) H Current Medications Medications (Trade) Dose Ordered Sig/Katy Route PRN Reason Start Time Stop Time Status Last Admin Dose Admin Acetaminophen (Tylenol) 650 mg Q4H PRN GT FEVER 06/03/20 11:45 07/03/20 11:44 Albumin Human 500 ml @ 0 mls/hr Q0M IV 06/03/20 11:30 06/03/20 12:30 06/03/20 11:22 Albuterol/ Ipratropium (Albuterol/ Ipratropium) 3 ml Q4H PRN HHN Shortness of Breath 06/03/20 12:00 06/04/20 11:59 Azithromycin 500 mg/Dextrose 275 ml @ 275 mls/hr Q24HRS IV 06/03/20 14:00 06/06/20 14:59 Baclofen (Lioresal) 10 mg Q8HR GT 06/03/20 14:00 06/29/20 21:59 Ceftriaxone Sodium 1 gm/ Dextrose 55 ml @ 110 mls/hr Q24H IVPB 06/03/20 13:00 06/09/20 12:59 Daptomycin 550 mg/ Sodium Chloride 55 ml @ 100 mls/hr Q24H IV 06/03/20 15:00 06/09/20 14:59 Dextrose (Dextrose 50%) 25 ml Q30M PRN IV Hypoglycemia 06/03/20 11:30 08/28/20 11:29 Dextrose (Dextrose 50%) 50 ml Q30M PRN IV Hypoglycemia 06/03/20 11:30 08/28/20 11:29 Heparin Sodium (Porcine) (Heparin 5000 units/ml) 5,000 units EVERY 12 HOURS SUBQ 06/03/20 21:00 07/14/20 20:59 Levothyroxine Sodium (Synthroid) 75 mcg DAILY GT 06/04/20 09:00 06/30/20 08:59 Midodrine (Pro-Amatine) 2.5 mg Q6HR GT 06/03/20 12:00 09/01/20 11:59 06/03/20 11:46 Ondansetron HCl (Zofran) 4 mg Q6H PRN IVP Nausea & Vomiting 06/03/20 12:00 06/29/20 11:59 Pantoprazole (Protonix) 40 mg DAILY IV 06/04/20 09:00 06/30/20 08:59 Polyethylene Glycol (Miralax) 17 gm DAILYPRN PRN GT Constipation 06/03/20 12:00 06/29/20 11:59 Temazepam (Restoril) 15 mg HSPRN PRN GT Insomnia 06/03/20 21:00 06/06/20 20:59 Valproic Acid (Depakene) 500 mg EVERY 8 HOURS GT 06/03/20 14:00 06/29/20 21:59 Suki Camejo M.D. Jun 03, 2020 12:46
[2020-06-03] MEDS ORDERED: cefTRIAXone 1 GM in D5W 55 ML IVPB SCH (13:00)
--- NOTE | 2020-06-03 13:00 | NUR ---
NURSE NOTES: Patient stable resting comfortably. No s/sx of distress at this time. Medications given at this time as scheduled. Will continue to monitor.
[2020-06-03] MEDS: Azithromycin 500 MG in D5W 275 ML IV SCH (14:00)
--- NOTE | 2020-06-03 14:03 | Emergency Room Report ---
History of Present Illness General Chief Complaint: Dyspnea/Respdistress Source: Patient, Medical Record Present Illness Allergies: Coded Allergies: No Known Allergies (Unverified , 10/16/18) COVID-19 Screening Contact w/high risk pt: No Experienced COVID-19 symptoms?: No COVID-19 Testing performed STABBER: Yes COVID-19 Screening: PUI COVID-19 COVID-19 Testing Source: 05/18/20 Nursing Documentation-[facility] Past Medical History: No History, Except For Hx Cardiac Problems: No - PVD Hx Diabetes: No - Hypothyroid Hx Cancer: No Hx Gastrointestinal Problems: No - gastrostomy Hx Neurological Problems: Yes - down syndrome Hx Seizures: Yes Hx Speech Problem: Yes Physical Exam Vital Signs Date Time Temp Pulse Resp B/P (MAP) Pulse Ox O2 Delivery O2 Flow Rate FiO2 05/30/20 11:20 99.0 80 16 108/70 (83) 94 Non-Rebreather 15.0 05/30/20 20:00 35 Medical Decision Making Diagnostic Impression: Primary Impression: Pneumonia Additional Impressions: Trisomy 21, Down syndrome Seizure disorder ER Course I was called to evaluate patient after CODE BLUE. Patient had initially become unresponsive. Had diminished blood pressure. Patient had been negative for coronavirus. Patient was placed on a credit office manager and was noted to have narrow complex cardiac rhythm. Patient had spontaneous respirations and a low blood pressure. Patient started on a fluid bolus. Further management to be per primary care team. Last Vital Signs Date Time Temp Pulse Resp B/P (MAP) Pulse Ox O2 Delivery O2 Flow Rate FiO2 06/03/20 12:00 15.0 06/03/20 10:00 Non-Rebreather 06/03/20 09:24 69 06/03/20 08:00 98.3 25 79/42 (54) 92 06/03/20 07:00 100 Disposition: ADMITTED INPATIENT Condition: Stable Referrals: NON PHYSICIAN (PCP) Jose Jensen MD Jun 03, 2020 14:03
--- NOTE | 2020-06-03 14:08 | NUR ---
NURSE NOTES:WOUND CARE FOLLOW-UP NOTES: [place] Liquid Skin Protectant x1 application applied to moisture intertrigo abdominal folds.
[2020-06-03] MEDS ORDERED: Tubing IV Secondary IV ONE (14:24)
[2020-06-03] MEDS ORDERED: DAPTOmycin 550 MG in NS 55 ML IV SCH (15:00)
--- NOTE | 2020-06-03 15:19 | NUR ---
NURSE NOTES: Called and left a message to Dr Allred regarding low BP 72/28. Awaiting call back for new orders.
--- NOTE | 2020-06-03 16:12 | NUR ---
NURSE NOTES: Order for PICC line from Dr Allred received, noted, and carried out. Notified Radiology and PICC line team.
[2020-06-03] MEDS ORDERED: Heparin1,000 units/500ml Premix(Conc:2 units/ml) IV PRN (16:15)
[2020-06-03] MEDS ORDERED: Lidocaine 1% Plain 30 ml INJ PRN (16:15)
[2020-06-03 16:40] LABS: APPEARANCE,URINE CLEAR; BILIRUBIN, URINE NEGATIVE (NEGATIVE); COLOR,URINE YELLOW; GLUCOSE, URINE (UA) NEGATIVE (NEGATIVE); KETONES,URINE NEGATIVE (NEGATIVE); NITRITE,URINE NEGATIVE (NEGATIVE); PROTEIN,URINE NEGATIVE (NEGATIVE)
[2020-06-03 16:41] LABS: LEUKOCYTE ESTERASE ,URINE NEGATIVE (NEGATIVE); UROBILINOGEN,URINE NORMAL MG/DL (0.0-1.0)
--- NOTE | 2020-06-03 16:43 | NUR ---
NURSE NOTES: Attempted to obtain consent for PICC line from NOK but no answer. Guardian Kourtney Hartley unavailable and next officer available unable to give us consent and will contact her cloth laminating supervisor via email. Dr. Allred contacted.
[2020-06-03] MEDS: Meropenem 1 GM in NS 55 ML IVPB SCH (16:59)
--- NOTE | 2020-06-03 18:44 | Internal Med Progress Note ---
Subjective Date of Service: Jun 03, 2020 Physician Name Joni Copeland Attending Physician Elayne Allred MD Current Medications Medications (Trade) Dose Ordered Sig/Katy Route PRN Reason Start Time Stop Time Status Last Admin Dose Admin Acetaminophen (Tylenol) 650 mg Q4H PRN GT FEVER 06/03/20 11:45 07/03/20 11:44 Albuterol/ Ipratropium (Albuterol/ Ipratropium) 3 ml Q4H PRN HHN Shortness of Breath 06/03/20 12:00 06/04/20 11:59 Azithromycin 500 mg/Dextrose 275 ml @ 275 mls/hr Q24HRS IV 06/03/20 14:00 06/06/20 14:59 06/03/20 14:00 Baclofen (Lioresal) 10 mg Q8HR GT 06/03/20 14:00 06/29/20 21:59 06/03/20 14:00 Chlorhexidine Gluconate (Alla-Hex 2%) 1 applic DAILY@2000 TOPIC 06/03/20 20:00 09/01/20 19:59 Daptomycin 550 mg/ Sodium Chloride 55 ml @ 100 mls/hr Q24H IV 06/03/20 15:00 06/09/20 14:59 06/03/20 15:01 Dextrose (Dextrose 50%) 25 ml Q30M PRN IV Hypoglycemia 06/03/20 11:30 08/28/20 11:29 Dextrose (Dextrose 50%) 50 ml Q30M PRN IV Hypoglycemia 06/03/20 11:30 08/28/20 11:29 Heparin Sodium (Porcine) (Heparin 5000 units/ml) 5,000 units EVERY 12 HOURS SUBQ 06/03/20 21:00 07/14/20 20:59 Heparin Sodium/ Sodium Chloride (Heparin 1000 units/500ml Premix) 1,000 unit ONCE PRN IV radiology 06/03/20 16:15 06/05/20 18:00 Levothyroxine Sodium (Synthroid) 75 mcg DAILY GT 06/04/20 09:00 06/30/20 08:59 Lidocaine HCl (Xylocaine 1% 30ml) 30 ml ONCE PRN INJ radioloty 06/03/20 16:15 06/05/20 18:00 Meropenem 1 gm/ Sodium Chloride 55 ml @ 110 mls/hr Q12H IVPB 06/03/20 16:00 06/08/20 15:59 06/03/20 16:59 Midodrine (Pro-Amatine) 2.5 mg Q6HR GT 06/03/20 12:00 09/01/20 11:59 06/03/20 16:59 Ondansetron HCl (Zofran) 4 mg Q6H PRN IVP Nausea & Vomiting 06/03/20 12:00 06/29/20 11:59 Pantoprazole (Protonix) 40 mg DAILY IV 06/04/20 09:00 06/30/20 08:59 Polyethylene Glycol (Miralax) 17 gm DAILYPRN PRN GT Constipation 06/03/20 12:00 06/29/20 11:59 Temazepam (Restoril) 15 mg HSPRN PRN GT Insomnia 06/03/20 21:00 06/06/20 20:59 Valproic Acid (Depakene) 500 mg EVERY 8 HOURS GT 06/03/20 14:00 06/29/20 21:59 06/03/20 14:00 Allergies: Coded Allergies: No Known Allergies (Unverified , 10/16/18) ROS Limited/Unobtainable: Yes Subjective 59 YO F with Down's syndrome admitted with hypoxia. Now sepsis and pneumonia. Cover for Int Med-DR Hawk. ICU. Non rebreather mask Objective Last Vital Signs Date Time Temp Pulse Resp B/P (MAP) Pulse Ox O2 Delivery O2 Flow Rate FiO2 06/03/20 18:00 71 15 84/26 (45) 99 06/03/20 16:00 97.7 06/03/20 16:00 Non-Rebreather 15.0 06/03/20 07:00 100 Laboratory Tests Test 06/03/20 00:02 06/03/20 04:45 06/03/20 08:03 06/03/20 13:25 Arterial Blood pH 7.390 (7.350-7.450) Arterial Blood Partial Pressure CO2 52.3 mmHg (35.0-45.0) H Arterial Blood Partial Pressure O2 52.2 mmHg (75.0-100.0) L Arterial Blood HCO3 30.9 mmol/L (22.0-26.0) H Arterial Blood Oxygen Saturation 87.1 % (95-100) *L Arterial Blood Base Excess 4.9 (-2-2) H Jonathan Test Positive White Blood Count 13.7 K/UL (4.8-10.8) H Red Blood Count 3.30 M/UL (4.20-5.40) L Hemoglobin 11.5 G/DL (12.0-16.0) L Hematocrit 34.4 % (37.0-47.0) L Mean Corpuscular Volume 104 FL (80-99) H Mean Corpuscular Hemoglobin 34.7 PG (27.0-31.0) H Mean Corpuscular Hemoglobin Concent 33.3 G/DL (32.0-36.0) Red Cell Distribution Width 12.6 % (11.6-14.8) Platelet Count 223 K/UL (150-450) Mean Platelet Volume 6.6 FL (6.5-10.1) Neutrophils (%) (Auto) 75.3 % (45.0-75.0) H Lymphocytes (%) (Auto) 12.7 % (20.0-45.0) L Monocytes (%) (Auto) 10.1 % (1.0-10.0) H Eosinophils (%) (Auto) 0.6 % (0.0-3.0) Basophils (%) (Auto) 1.3 % (0.0-2.0) Sodium Level 141 MMOL/L (136-145) Potassium Level 4.1 MMOL/L (3.5-5.1) Chloride Level 107 MMOL/L (98-107) Carbon Dioxide Level 26 MMOL/L (21-32) Anion Gap 8 mmol/L (5-15) Blood Urea Nitrogen 20 mg/dL (7-18) H Creatinine 1.8 MG/DL (0.55-1.30) H Estimat Glomerular Filtration Rate 28.9 mL/min (>60) Glucose Level 99 MG/DL (74-106) Calcium Level 8.6 MG/DL (8.5-10.1) Total Bilirubin 0.3 MG/DL (0.2-1.0) Aspartate Amino Transf (AST/SGOT) 29 U/L (15-37) Alanine Aminotransferase (ALT/SGPT) 8 U/L (12-78) L Alkaline Phosphatase 44 U/L (46-116) L Total Creatine Kinase 51 U/L (26-308) Pro-B-Type Natriuretic Peptide 1184 pg/mL (0-125) H Total Protein 5.9 G/DL (6.4-8.2) L Albumin 1.5 G/DL (3.4-5.0) L Globulin 4.4 g/dL Albumin/Globulin Ratio 0.3 (1.0-2.7) L Thyroid Stimulating Hormone (TSH) 1.309 uiU/mL (0.358-3.740) Hepatitis B Surface Antibody, Quant Pending Hepatitis C Antibody Pending HIV (1&2) Antibody Rapid Negative (NEGATIVE) POC Whole Blood Glucose 129 MG/DL (74-106) H Urine Color Yellow Urine Appearance Clear Urine pH 5.0 (4.5-8.0) Urine Specific [place] 1.015 (1.005-1.035) Urine Protein Negative (NEGATIVE) Urine Glucose (UA) Negative (NEGATIVE) Urine Ketones Negative (NEGATIVE) Urine Blood 4+ (NEGATIVE) H Urine Nitrite Negative (NEGATIVE) Urine Bilirubin Negative (NEGATIVE) Urine Urobilinogen Normal MG/DL (0.0-1.0) Urine Leukocyte Esterase Negative (NEGATIVE) Urine RBC 20-30 /HPF (0 - 2) H Urine WBC 0-2 /HPF (0 - 2) Urine Squamous Epithelial Cells Occasional /LPF Urine Bacteria Occasional /HPF (NONE) Urine Random Sodium < 20 mmol/L (20-110) L Microbiology Date/Time Source Procedure Growth Status 06/03/20 13:20 Nasopharynx SARS-CoV-2 RdRp Gene Assay - Final Complete Intake and Output 06/02/20 06/03/20 19:00 07:00 Intake Total 1000 ml 330 ml Output Total 350 ml 700 ml Balance 650 ml -370 ml Free Water 100 ml IV Total 660 ml Tube Feeding 240 ml 330 ml Output Urine Total 350 ml 700 ml # Bowel Movements 2 1 Objective General Appearance: WD/WN, no apparent distress, alert EENT: PERRL/EOMI, normal ENT inspection Neck: non-tender, normal alignment, supple, normal inspection Cardiovascular: normal peripheral pulses, normal rate, regular rhythm, no gallop/murmur, no JVD Respiratory/Chest: Non rebreather mask; decreased breath sounds, crackles/rales , rhonchi - bilaterally, expiratory wheezing Abdomen: normal bowel sounds, non tender, soft, no organomegaly, no mass Extremities: normal range of motion Neurologic: lpn care manager II-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 Continue daptomycin per ID=Dr Caemjo. Pulmonary/Critical care=DR Allred (2) Sepsis Assessment & Plan: Staph haemolyticus. Continue daptomycin and ceftriaxone per ID=Dr Camejo (3) Down's syndrome (4) Dysphagia Assessment & Plan: S/P PEG (5) Seizure disorder Assessment & Plan: Continue keppra and depakote (6) Hypothyroidism Assessment & Plan: Continue synthroid (7) Acute respiratory failure Assessment & Plan: Pulmonary = Dr Allred; non rebreather mask Joni Copeland MD Jun 03, 2020 18:44
--- NOTE | 2020-06-03 19:32 | NUR ---
NURSE HAND-OFF REPORT: Latest Vital Signs: Temperature 97.7 , Pulse 92 , B/P 84 /32 , Respiratory Rate 18 , O2 SAT 97 , Non-Rebreather, O2 Flow Rate 15.0 . Vital Sign Comment: Hypotensive. MD aware. Currentlly SBP in 80's. O2 sat >90%. EKG Rhythm: Sinus Rhythm Rhythm change?: N MD Notified?: - MD Response: Latest Osorio Fall Score: 50 Fall Risk: High Risk Safety Measures: Call light Within Reach, Bed Alarm Zone 1, Side Rails Side Rails x3, Bed position Low and Locked. Fall Precautions: Yellow Socks Yellow Gown Door Sign Patient Fall Education Report given to Cole LUJAN. Patient remains guarded. Plan of care endorsed. RN aware that we were unable to obtain consent for PICC line.
[2020-06-03] MEDS: Dyna-Hex 2% Top Sol 2oz TOPIC SCH (19:38)
--- NOTE | 2020-06-03 19:50 | NUR ---
NURSE NOTES: PATIENT LETHARGIC, RESPIRATION REGULAR, TACHYPNEA O2 SATURATION 89% NOTED ON NRB 15LPM, NO N/V OR COUGH, KEPT ELEVATED RIGHT CHEST ORDER, ABDOMEN SOFT, G TUBE INTACT AND PATENT, KEPT NPO ORDER, KEPT ASPIRATION PRECAUTION, F/C INTACT AND PATENT, YELLOW URINE OUTED, MADE LOWER BED POSITION, ON BED ALARM AND LOCKED, WILL CONTINUE TO MONITOR.
--- NOTE | 2020-06-03 20:21 | NUR ---
NURSE NOTES: CALLED REGARDING LOWER BP 80/27 THAT LEFT MESSAGE.
--- NOTE | 2020-06-03 21:00 | NUR ---
NURSE NOTES: CALLED DR. SUN REGARDING SBP BELOW 90 THAT LEFT MESSAGE.
--- NOTE | 2020-06-03 21:36 | NUR ---
NURSE NOTES: CALLED ANIMAL SHELTER SUPERVISOR DUE NO ANSWERING FROM DR. SUN.
--- NOTE | 2020-06-03 21:48 | NUR ---
NURSE NOTES: CALLED BACK FROM DR. SUN THAT REPORTED NO PICC TERI, V/S AND PT'S SKIN IS WARM AT THIS TIME. SAID, " SKIN IS WARM, DON'T WORRY ."
--- NOTE | 2020-06-03 23:26 | NUR ---
NURSE NOTES: DESATURATION 75% NOTED, CALLED RT THAT RT CAME SUCTIONED BUT O2 SATURATION BELOW 80% NOTED AT THIS TIME, WILL CONTINUE TO MONITOR.
[2020-06-04] VITALS (75 sets, daily range): BP systolic 56–129; BP diastolic 23–95
--- NOTE | 2020-06-04 00:30 | NUR ---
RESPIRATORY NOTE: RN called because pt was desaturating 75% on 100% NRB, tried to suction pt through nasal trumpet but couldn't pass the suction catheter through it. Removed trumpet and pt started desaturating. STAT ABG ordered, confirmed and done. see lab for results. pt shows no improvement, getting pale, tachypneic. Pt placed on BiPAP 25/5, 100% for comfort measures. MD notified. Slight improvement on SpO2 and work of breathing. BiPAP plugged into red outlet, alarms on and audible, ambu bag at bedside. Will continue to monitor pt. Awaiting further MD orders Will endorse to next RT.
--- NOTE | 2020-06-04 00:43 | CDS Physician Query ---
Clarification is required for compliance, coding accuracy, and to reflect severity of illness for this patient Dear Dr. Copeland Date: 06/04/20 Event Sales Assistant/CDS Name: Prince Louis Exercise your independent professional judgment when responding to query. Question asked do not imply a particular answer is desired/expected Clinical Documentation States: Patient is a 59-year-old female with history of Down Syndrome who presents with a chief complaint of shortness of breath. (History and Physical, 06/03/20) Pneumonia. Patient has been placed empirically on daptomycin and ceftriaxone. Hypoxia secondary to pneumonia as above. (History and Physical, 06/03/20) SEPSIS: Staph haemolyticus. Continue daptomycin and ceftriaxone per ID. ( Progress note, 06/03/20) Clinical Findings Show: General variables [X] Fever (temp >38.3 degrees C or 100.4 degrees F) [] Hypothermia (temp<36 degrees C or 96.0 degrees F) [] Heart rate > 90/min [X] Tachypnea/RR > 20 bpm [] pCO2 < 32 mmHg [] Altered mental status [] Significant edema or positive fluid balance (>20 ml/kg over 24h) [] Hyperglycemia ( Plasma >140 mg/dL or 7.7 mmol/L) in the abscence of diabetes Inflammatory variables [X] Leukocytosis (WBC count > 12,000 L1 [] Leukopenia (WBC count < 4000 L1) [] Normal WBC count with greater than 10% immature forms (Bandemia) Hemodynamic variables [X] Arterial hypotension (SBP < 90 mm Hg, MAP < 70 mm Hg, or an SBP decrease > 40 mm Hg in adults or less than two sd below normal for age) Organ dysfunction variables [] Arterial hypoxemia (Pao2/Fio2 < 300) [] Acute oliguria (urine output < 0.5 mL/kg/hr for at least 2 hrs despite adequate fluid resuscitation) [X] Creatinine increase > 0.5 mg/dL or 44.2 mol/L [] Coagulation abnormalities (INR > 1.5 or aPTT > 60 s) [] Ileus (absent bowel sounds) [] Thrombocytopenia (platelet count < 100,000 L1) [] Hyperbilirubinemia (plasma total bilirubin > 4 mg/dL or 70 mol/L) Tissue Perfusion Variables [X] Hyperlactatemia (> 1 mmol/L) [] Decreased capillary refill or mottling Was SEPSIS present on admission? [X] Yes [] No [] Clinically undeterminable Physician signature Date Please also document in your Progress Notes and/or Discharge Summary and indicate if the condition was present on admission. MTDD
--- NOTE | 2020-06-04 01:15 | NUR ---
RESPIRATORY NOTE: PT RECEIVED ON BIPAP WITH INCREASED WOB. AT THIS TIME PT WAS INTUBATED PER MD ORDER. PT WAS PLACED ON MECHANICAL VENTILATION WITH THE FOLLOWING SETTINGS: AC 20, 500, 100%, +5. IMPROVED SATURATION WELL IMPROVEMENT IN WOB WAS NOTED. ALARMS ARE ON AND AUDIBLE. WILL CONTINUE TO CLOSELY MONITOR. ABG TO FOLLOW IN TWO HOURS.
--- NOTE | 2020-06-04 01:15 | NUR ---
NURSE NOTES: ER MD (Dr. Kee was here intubated pt) . Stat CXR was ordered
--- NOTE | 2020-06-04 01:29 | NUR ---
NURSE NOTES: central line was placed by ER (Dr Kee) Left femoral site.
--- NOTE | 2020-06-04 01:41 | NUR ---
NURSE NOTES: CXR was done
--- NOTE | 2020-06-04 02:11 | Emergency Room Report ---
History of Present Illness General Chief Complaint: Dyspnea/Respdistress Source: Medical Record Present Illness HPI This is a 59-year-old female from a senior living. She has a history of seizure , pneumonia, Down syndrome. She was admitted to the hospital for pneumonia and respiratory distress. COVID testing was negative. I was called to evaluate the patient in the ICU. She was hypotensive and hypoxic. She had a respiratory CODE BLUE and was placed on BiPAP earlier today. On my arrival patient was dyspneic with increased work of breathing. She was hypoxic to the low 90 percentile on BiPAP. She is also hypotensive with systolic in the 70s to 80. I proceeded to intubate the patient and place a central line for pressors. Allergies: Coded Allergies: No Known Allergies (Unverified , 10/16/18) COVID-19 Screening Contact w/high risk pt: No Experienced COVID-19 symptoms?: No COVID-19 Testing performed CHIROPRACTIC TEACHER: Yes COVID-19 Screening: Negative COVID-19 COVID-19 Testing Source: 05/18/20 Nursing Documentation-[facility] Past Medical History: No History, Except For Hx Cardiac Problems: No - PVD Hx Diabetes: No - Hypothyroid Hx Cancer: No Hx Gastrointestinal Problems: No - gastrostomy Hx Neurological Problems: Yes - down syndrome Hx Seizures: Yes Hx Speech Problem: Yes Review of Systems Respiratory: Reports: shortness of breath All Other Systems: limited - Secondary to her condition Physical Exam Vital Signs Date Time Temp Pulse Resp B/P (MAP) Pulse Ox O2 Delivery O2 Flow Rate FiO2 05/31/20 08:00 Venturi Mask 5.0 05/31/20 08:00 35 05/31/20 08:00 97.7 68 18 100/62 (75) 98 Sp02 EP Interpretation: abnormal General Appearance: severe distress, obese, Stupor Eyes: bilateral eye PERRL ENT: dry mucus membranes Neck: supple Respiratory: respiratory distress, decreased breath sounds, accessory muscle use, crackles Cardiovascular #1: regular rate, rhythm Gastrointestinal: normal inspection, normal bowel sounds, non tender Genitourinary: other - Blackish stool Musculoskeletal: other - Lower extremities contracted especially right side Neurologic: other - Grimaces to painful stimuli Skin: no rash Lymphatic: normal inspection Procedures Critical Care Time Critical Care Time Critical care is mandated in this patient who presented with vent dependent respiratory distress secondary to septic shock from pneumonia. Patient require my urgent intervention to attenuate the risks of metabolic collapse which may lead to cardiovascular collapse and . Critical care time is 35 minutes excluding any reportable procedure. Critical care time included evaluation, multiple reevaluation, looking at old charts, interpreting laboratory and diagnostic data, discussing case with patient and family and consultants, and charting. Central Line Central Line : Consent: Emergent Central Line Lumen: triple Maximal Sterile Barrier Tech: yes cap, yes mask, yes sterile gown, yes sterile gloves, yes large sterile sheet, yes hand hygiene, yes chlorhexidine prep Central Line Postion: femoral (L) US Guided Line?: No Complications: none Central Line Post Position: sutured, good blood return Attempts: One Patient Tolerated: Well Complications: None Intubation Intubation : Consent: Emergent Intubation Method: orotracheal Tube Size (cm): 7.5 Medications: Etomidate, Succinylcholine Breath Sounds after Intubation: equal Intubation Complications: no complications Post Intubation Xray: Yes Progress/Xray Impression: ETT in good position. worsening pneumonia Attempts: One Patient Tolerated: Well Complications: None Medical Decision Making Diagnostic Impression: Primary Impression: ARDS (adult respiratory distress syndrome) Additional Impressions: Septic shock HCAP (healthcare-associated pneumonia) Respiratory failure requiring intubation ER Course Patient presents with septic shock and respiratory distress secondary to worsening pneumonia. Patient is intubated without any difficulty. Central line was placed for pressors. I contacted modeling teacher Dr. Allred to update him on her condition. Chest X-Ray Diagnostic Results Chest X-Ray Diagnostic Results : Chest X-Ray Ordered: Yes # of Views/Limited/Complete: 1 View Indication: Shortness of Breath EP Interpretation: Yes Interpretation: no effusion, no pneumothorax, other - ETT in good position. worsening infiltrates Impression: Other - s/p intubation. worsening infiltrates Electronically Signed by: Demarco Kee MD Last Vital Signs Date Time Temp Pulse Resp B/P (MAP) Pulse Ox O2 Delivery O2 Flow Rate FiO2 06/04/20 00:53 84 32 64/37 (46) 93 06/04/20 00:25 100 06/04/20 00:00 99.1 06/04/20 00:00 Non-Rebreather 15.0 Status: improved Disposition: ADMITTED INPATIENT Condition: Critical Referrals: NON PHYSICIAN (PCP) Demarco Kee MD Jun 04, 2020 02:11
[2020-06-04] MEDS: Meropenem 1 GM in NS 55 ML IVPB SCH ×2 (02:17→15:54)
--- NOTE | 2020-06-04 02:17 | NUR ---
NURSE NOTES: GIVEN MERREM 1GM BY IVPB ER DR'S ORDER.
--- NOTE | 2020-06-04 02:17 | Diagnostic Imaging Report ---
EXAM: XR Chest, 1 View CLINICAL HISTORY: S/P INTUB TECHNIQUE: Frontal view of the chest. COMPARISON: 06/02/2020 FINDINGS: Limitations: The lower thorax is excluded from the [id number]. Lungs: Bilateral opacities. Improved right lung volume. Pleural space: Small to moderate bilateral pleural effusions. No pneumothorax. Heart: Stable cardiomediastinal silhouette. Mediastinum: See above. Bones/joints: No acute osseous abnormality. Tubes, lines and devices: Endotracheal tube tip projects approximately 1.9 cm above the joseph. IMPRESSION: 1. Endotracheal tube tip projects approximately 1.9 cm above the joseph. 2. Small to moderate bilateral pleural effusions. No pneumothorax. 3. Bilateral diffuse bilateral parenchymal opacities are nonspecific and may be related to edema or an infectious or inflammatory process.
--- NOTE | 2020-06-04 04:10 | NUR ---
NURSE NOTES: MORNING CARE AND ORAL CARE WAS DONE.
--- NOTE | 2020-06-04 05:25 | NUR ---
RESPIRATORY NOTE: PT REMAINED STABLE ON CMV WITH CURRENT SETTINGS. SX PRN. AIRWAY IS SECURE AND PATENT. NO S/S OF RESPIRATORY DISTRESS NOTED AT THIS TIME.
[2020-06-04] MEDS: Valproic Acid 250mg/5ml Liquid GT SCH ×3 (05:32→21:28)
[2020-06-04 06:00] LABS: HEMATOCRIT 33.1 % (37.0-47.0); HEMOGLOBIN 10.9 G/DL (12.0-16.0); MEAN CORPUSCULAR VOLUME 106 FL (80-99); PLATELET COUNT 212 K/UL (150-450); RED BLOOD COUNT 3.13 M/UL (4.20-5.40); RED CELL DISTRIBUTION WIDTH 12.8 % (11.6-14.8); WHITE BLOOD COUNT 19.8 K/UL (4.8-10.8)
--- NOTE | 2020-06-04 06:10 | NUR ---
NURSE NOTES: PATIENT NO RESPONSIVE TI TACTILE STIMULI, ONGOING LEVOPHED 22MCG/MIN AND IV FLUID NS AT 100ML/HR VIA RIGHT FEMORAL TLC, WILL CONTINUE TO MONITOR.
[2020-06-04 06:50] LABS: ALANINE AMINOTRANSFERASE 9 U/L (12-78); ALBUMIN 1.9 G/DL (3.4-5.0); ALBUMIN/GLOBULIN RATIO 0.5 (1.0-2.7); ALKALINE PHOSPHATASE 39 U/L (46-116); ANION GAP 14 mmol/L (5-15); ASPARTATE AMINO TRANSFERASE 25 U/L (15-37); BILIRUBIN,TOTAL 0.5 MG/DL (0.2-1.0); BLOOD UREA NITROGEN 19 mg/dL (7-18); CALCIUM 8.2 MG/DL (8.5-10.1); CARBON DIOXIDE 22 MMOL/L (21-32); CHLORIDE 110 MMOL/L (98-107); CHOLESTEROL 81 MG/DL (< 200); CREATININE 2.2 MG/DL (0.55-1.30); GAMMA GLUTAMYL TRANSPEPTIDASE 10 U/L (5-85); HDL CHOLESTEROL 15 MG/DL (40-60); LACTATE DEHYDROGENASE 247 U/L (81-234); PHOSPHORUS 2.7 MG/DL (2.5-4.9); POTASSIUM 3.4 MMOL/L (3.5-5.1); SODIUM 146 MMOL/L (136-145); TRIGLYCERIDES 67 MG/DL (30-150)
--- NOTE | 2020-06-04 07:15 | NUR ---
NURSE HAND-OFF REPORT: Latest Vital Signs: Temperature 99.0 , Pulse 78 , B/P 102 /46 , Respiratory Rate 20 , O2 SAT 94 , Mechanical Ventilator, O2 Flow Rate 15.0 . Vital Sign Comment: EKG Rhythm: Sinus Rhythm Rhythm change?: N MD Notified?: - MD Response: Latest Osorio Fall Score: 50 Fall Risk: High Risk Safety Measures: Call light Within Reach, Bed Alarm Zone 1, Side Rails Side Rails x3, Bed position Low and Locked. Fall Precautions: Yellow Socks Door Sign Patient Fall Education Report given to TAI JIMENEZ.
--- NOTE | 2020-06-04 07:30 | NUR ---
NURSE NOTES: Patient received from Cole RN. Patient stable AOx0 with no s/sx of pain or distress. NSR on vehicle monitor technician. Normal cardiac sounds. Rhoncus BL on inspiration and expiration with mild wheeze on expiration. RR even and unlabored ETT Shiley 7.5 lip line 22. Vent settings AC 20 500mL 100% FIO2 100% VSS. NPO. Feeding on hold. Gregorio noted draining 20mLs to gravity. IV line flushed and patent. LT Femoral patent with dressing dry and intact. Levophed infusing at 22mL/hr and IV NS @100. Oral care performed. Patient has fever of 102F. Cooling measures applied. Will administer Tylenol. Patient repositioned. Side rails upx2, call light within reach, bed low and locked. Will continue to monitor.
[2020-06-04] MEDS ORDERED: Etomidate 40mg/20ml Inj IV ONE (07:51)
[2020-06-04] MEDS ORDERED: Succinylcholine 20mg/ml 10ml vial ONE (07:51)
[2020-06-04] MEDS: Pantoprazole Inj IV SCH (08:43)
[2020-06-04] MEDS: Heparin 5000 units/ml inj SUBQ SCH ×2 (08:44→20:19)
[2020-06-04] MEDS: Acetaminophen 650mg/20.3ml GT PRN (09:00)
--- NOTE | 2020-06-04 09:00 | NUR ---
NURSE NOTES: PRN Tylenol 650mg given via GT. Initiated cooling measures. Will recheck temp.
--- NOTE | 2020-06-04 09:10 | NUR ---
NURSE NOTES: FIO2 titrated down to 90%. Patient in no distress. RR 20 o2 sat 97%.
--- NOTE | 2020-06-04 09:36 | Nephrology Progress Note ---
Assessment/Plan Problem List: (1) LEANN (acute kidney injury) (2) Respiratory failure requiring intubation (3) Down's syndrome (4) Seizure disorder (5) Hypothyroidism Assessment Acute renal failure, likely due to hypotension Acute respiratory distress, hypoxia Seizure disorder Hypothyroidism Down syndrome Full code Fluid challenge with IV fluids and albumin Midodrine for BP above 100 systolic Check TSH level Check Correct level Monitor renal parameters Urine studies Per orders Plan June 04: Patient now in ICU. Intubated. On pressors. Labs reviewed. Will increase midodrine. Aim to keep blood pressure over 100 systolic. Will give albumin bolus. Will check vancomycin level which was elevated when checked previously on June 01. Will monitor renal parameters. Continue per consultants. Subjective ROS Limited/Unobtainable: Yes Objective Objective Last 24 Hour Vital Signs Date Time Temp Pulse Resp B/P (MAP) Pulse Ox O2 Delivery O2 Flow Rate FiO2 06/04/20 09:11 74 20 100 06/04/20 08:02 99/44 06/04/20 07:26 78 20 100 06/04/20 07:00 102/46 06/04/20 07:00 83 21 102/46 (64) 94 06/04/20 06:45 78 20 90/43 (59) 94 06/04/20 06:30 79 20 89/40 (56) 93 06/04/20 06:15 79 20 94/39 (57) 98 06/04/20 06:00 80 20 89/39 (56) 93 06/04/20 06:00 89/39 06/04/20 05:45 80 20 89/51 (64) 93 06/04/20 05:41 80 20 91/38 (55) 94 06/04/20 05:30 81 20 94/36 (55) 94 06/04/20 05:25 80 20 100 06/04/20 05:15 80 20 82/36 (51) 95 06/04/20 05:08 80 20 86/37 (53) 97 06/04/20 05:00 84/36 06/04/20 05:00 81 20 85/38 (54) 98 06/04/20 04:45 85/38 06/04/20 04:45 80 20 85/38 (54) 99 06/04/20 04:30 83/37 06/04/20 04:30 79 20 83/37 (52) 99 06/04/20 04:15 78 20 89/32 (51) 100 06/04/20 04:15 89/32 06/04/20 04:05 78 20 83/31 (48) 100 06/04/20 04:00 Mechanical Ventilator 06/04/20 04:00 100 06/04/20 04:00 75/41 06/04/20 04:00 99.0 76 20 75/41 (52) 98 06/04/20 03:50 80/40 06/04/20 03:45 77 19 80/40 (53) 99 06/04/20 03:41 78 20 73/35 (48) 97 06/04/20 03:40 73/35 06/04/20 03:37 79 20 63/37 (46) 99 06/04/20 03:37 79 06/04/20 03:35 63/37 06/04/20 03:30 80 20 67/32 (44) 98 06/04/20 03:30 67/32 06/04/20 03:24 73/38 06/04/20 03:22 79 20 100 06/04/20 03:15 80 20 73/38 (50) 100 06/04/20 03:00 81 20 76/45 (55) 100 06/04/20 02:00 79 20 98/52 (67) 100 06/04/20 01:45 79 20 91/43 (59) 99 06/04/20 01:30 88 25 89/44 (59) 95 06/04/20 01:15 78 23 100 06/04/20 01:15 100 06/04/20 01:15 99 23 84/46 (59) 97 06/04/20 01:02 83 33 71/32 (45) 95 06/04/20 01:00 85 33 92 06/04/20 00:53 84 32 64/37 (46) 93 84 06/04/20 00:45 83 38 65/32 (43) 95 06/04/20 00:36 88 38 69/36 (47) 97 06/04/20 00:34 86 43 65/23 (37) 98 06/04/20 00:30 87 21 73/40 (51) 94 06/04/20 00:28 88 27 121/78 (92) 97 06/04/20 00:25 88 33 94 100 06/04/20 00:20 107 40 125/95 (105) 73 06/04/20 00:18 108 38 80/34 (49) 81 06/04/20 00:15 106 35 88/46 (60) 77 06/04/20 00:10 122 38 75/36 (49) 73 06/04/20 00:06 107 27 78/40 (53) 84 06/04/20 00:00 99.1 99 51 56/24 (35) 100 06/04/20 00:00 15.0 06/04/20 00:00 Non-Rebreather 15.0 06/04/20 00:00 99 06/03/20 23:50 90 27 110/94 (99) 39 06/03/20 23:45 96 30 100/44 (62) 78 06/03/20 23:30 93 34 70/33 (45) 66 06/03/20 23:00 90 32 83/28 (46) 84 90 06/03/20 22:30 88 32 78/29 (45) 84 06/03/20 22:15 77 31 80/26 (44) 86 06/03/20 22:00 79 33 79/29 (46) 94 06/03/20 21:30 78 36 84/31 (48) 97 06/03/20 21:15 79 23 86/27 (46) 86 06/03/20 21:00 77 17 81/29 (46) 91 06/03/20 20:45 76 19 81/30 (47) 90 06/03/20 20:30 75 20 80/25 (43) 90 06/03/20 20:15 74 18 75/29 (44) 89 06/03/20 20:00 98.2 71 21 84/32 (49) 92 06/03/20 20:00 Non-Rebreather 15.0 06/03/20 20:00 71 06/03/20 20:00 15.0 06/03/20 19:45 71 20 76/27 (43) 88 06/03/20 19:30 71 20 84/32 (49) 88 06/03/20 19:15 69 22 78/31 (47) 91 06/03/20 19:05 97 Non-Rebreather 15.0 100 06/03/20 19:05 92 18 97 Non-Rebreather 15.0 100 06/03/20 19:00 69 22 84/32 (49) 99 06/03/20 18:00 71 15 84/26 (45) 99 06/03/20 17:00 66 14 86/28 (47) 99 06/03/20 16:00 97.7 69 22 86/31 (49) 97 06/03/20 16:00 Non-Rebreather 15.0 06/03/20 16:00 15.0 06/03/20 16:00 62 06/03/20 15:00 70 18 87/31 (49) 95 06/03/20 14:00 65 19 95/33 (53) 100 06/03/20 13:00 69 18 96/43 (60) 100 06/03/20 12:00 97.2 70 15 93/36 (55) 99 06/03/20 12:00 Non-Rebreather 15.0 06/03/20 12:00 15.0 06/03/20 12:00 68 06/03/20 11:00 67 14 99/34 (55) 100 06/03/20 10:00 Non-Rebreather 15.0 06/03/20 10:00 67 14 98/41 (60) 100 Intake and Output 06/03/20 06/04/20 19:00 07:00 Intake Total 1885 ml 1230.620 ml Output Total 225 ml 255 ml Balance 1660 ml 975.620 ml IV Total 1885 ml 1140.620 ml Other 90 ml Output Urine Total 225 ml 255 ml # Bowel Movements 1 2 Laboratory Tests 06/03/20 13:25: Urine Color Yellow, Urine Appearance Clear, Urine pH 5.0, Urine Specific [place] 1.015, Urine Protein Negative, Urine Glucose (UA) Negative, Urine Ketones Negative, Urine Blood 4+H, Urine Nitrite Negative, Urine Bilirubin Negative, Urine Urobilinogen Normal, Urine Leukocyte Esterase Negative, Urine RBC 20-30H, Urine WBC 0-2, Urine Squamous Epithelial Cells Occasional, Urine Bacteria Occasional, Urine Random Sodium < 20L 06/03/20 23:59: Arterial Blood pH 7.130*L, Arterial Blood Partial Pressure CO2 77.9*H, Arterial Blood Partial Pressure O2 46.0*L, Arterial Blood HCO3 25.3, Arterial Blood Oxygen Saturation 71.7*L, Arterial Blood Base Excess -5L, Jonathan Test Negative 06/04/20 03:54: Arterial Blood pH 7.487H, Arterial Blood Partial Pressure CO2 27.4L, Arterial Blood Partial Pressure O2 53.3L, Arterial Blood HCO3 20.3L, Arterial Blood Oxygen Saturation 90.2L, Arterial Blood Base Excess -2.2L, Jonathan Test Positive 06/04/20 05:14: White Blood Count 19.8H, Red Blood Count 3.13L, Hemoglobin 10.9L, Hematocrit 33.1L, Mean Corpuscular Volume 106H, Mean Corpuscular Hemoglobin 34.7H, Mean Corpuscular Hemoglobin Concent 32.9, Red Cell Distribution Width 12.8, Platelet Count 212, Mean Platelet Volume 7.0, Neutrophils (%) (Auto) , Lymphocytes (%) ( Auto) , Monocytes (%) (Auto) , Eosinophils (%) (Auto) , Basophils (%) (Auto) , Neutrophils % (Manual) [Pending], Lymphocytes % (Manual) [Pending], Platelet Estimate [Pending], Platelet Morphology [Pending], Sodium Level 146H, Potassium Level 3.4L, Chloride Level 110H, Carbon Dioxide Level 22, Anion Gap 14, Blood Urea Nitrogen 19H, Creatinine 2.2H, Estimat Glomerular Filtration Rate 22.9, Glucose Level 79, Hemoglobin A1c 4.6, Lactic Acid Level 3.00H, Uric Acid 4.0, Calcium Level 8.2L, Phosphorus Level 2.7, Magnesium Level 2.2, Total Bilirubin 0.5, Gamma Glutamyl Transpeptidase 10, Aspartate Amino Transf (AST/SGOT) 25, Alanine Aminotransferase (ALT/SGPT) 9L, Alkaline Phosphatase 39L, Lactate Dehydrogenase 247H, Troponin I 0.057H, C-Reactive Protein, Quantitative 19.4H, Pro-B-Type Natriuretic Peptide 11768B, Total Protein 5.6L, Albumin 1.9L, Globulin 3.7, Albumin/Globulin Ratio 0.5L, Triglycerides Level 67, Cholesterol Level 81, LDL Cholesterol 51, HDL Cholesterol 15L, Cholesterol/HDL Ratio 5.4H, Valproic Acid (Depakene) Level 43L Height (Feet): 5 Height (Inches): 3.00 Weight (Pounds): 147 General Appearance: no apparent distress EENT: other - Intubated on ventilator Cardiovascular: normal rate Respiratory/Chest: decreased breath sounds Abdomen: soft Keron Pitt MD Jun 04, 2020 09:36
--- NOTE | 2020-06-04 10:11 | NUR ---
NURSE NOTES: Called and left a message to guardian regarding consent for PICC line order. Awaiting call back for the consent.
--- NOTE | 2020-06-04 10:28 | NUR ---
NURSE NOTES: FIO2 titrated to 80%.
[2020-06-04] MEDS: Norepinephrine Bitartrate 8 MG in D5W 500ml 550 ML IV SCH ×3 (10:31→23:17)
--- NOTE | 2020-06-04 10:33 | NUR ---
Social Work This SW met with patient who is currently in the ICU; intubated, sedated. Patient is from [facility] and is managed by public guardian: Kourtney Hartley ([phone]) for decision making, currently full code, full treatment. Pending current progress; SW follow as needed.
--- NOTE | 2020-06-04 11:31 | Pulmonolgy Critical Care Note ---
Critical Care - Asmt/Plan Problems: (1) Acute respiratory failure (2) Pneumonia (3) Sepsis (4) HCAP (healthcare-associated pneumonia) (5) Seizure disorder (6) Down's syndrome Respiratory: monitor respiratory rate, adjust FIO2, CXR Cardiac: continue pressors, continue to monitor HR/BP Renal: F/U I&O, keep IV fluid, check electrolytes Infectious Disease: check cultures Gastrointestinal: continue feedings/current rate Endocrine: check TSH, continue sliding scale insulin Hematologic: transfuse if hgb<8.5 Neurologic: PRN Ativan, keep patient comfortable Prophylaxis: Heparin Time Spent (Minutes): 40 Notes Reviewed: cardio, 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 with: nurses, consultants, family independence case managerrenewable energy project manager - Objective Last 24 Hour Vital Signs Date Time Temp Pulse Resp B/P (MAP) Pulse Ox O2 Delivery O2 Flow Rate FiO2 06/04/20 11:00 62 20 110/48 (68) 96 06/04/20 10:31 102/51 06/04/20 10:25 80 06/04/20 10:22 67 20 80 06/04/20 10:00 68 20 99/45 (63) 97 06/04/20 09:30 100.3 06/04/20 09:30 71 20 100/44 (62) 97 06/04/20 09:11 74 20 90 06/04/20 09:10 90 06/04/20 09:00 76 20 98/46 (63) 95 06/04/20 08:30 77 20 99/46 (63) 95 06/04/20 08:02 99/44 06/04/20 08:00 102.8 77 20 99/46 (63) 97 06/04/20 08:00 63 06/04/20 08:00 Endotracheal Tube 06/04/20 08:00 100 06/04/20 07:30 102.0 77 20 102/47 (65) 97 06/04/20 07:26 78 20 100 06/04/20 07:00 102/46 06/04/20 07:00 83 21 102/46 (64) 94 06/04/20 06:45 78 20 90/43 (59) 94 06/04/20 06:30 79 20 89/40 (56) 93 06/04/20 06:15 79 20 94/39 (57) 98 06/04/20 06:00 80 20 89/39 (56) 93 06/04/20 06:00 89/39 06/04/20 05:45 80 20 89/51 (64) 93 06/04/20 05:41 80 20 91/38 (55) 94 06/04/20 05:30 81 20 94/36 (55) 94 06/04/20 05:25 80 20 100 06/04/20 05:15 80 20 82/36 (51) 95 06/04/20 05:08 80 20 86/37 (53) 97 06/04/20 05:00 84/36 06/04/20 05:00 81 20 85/38 (54) 98 06/04/20 04:45 85/38 06/04/20 04:45 80 20 85/38 (54) 99 06/04/20 04:30 83/37 06/04/20 04:30 79 20 83/37 (52) 99 06/04/20 04:15 78 20 89/32 (51) 100 06/04/20 04:15 89/32 06/04/20 04:05 78 20 83/31 (48) 100 06/04/20 04:00 Mechanical Ventilator 06/04/20 04:00 100 06/04/20 04:00 75/41 06/04/20 04:00 99.0 76 20 75/41 (52) 98 06/04/20 03:50 80/40 06/04/20 03:45 77 19 80/40 (53) 99 06/04/20 03:41 78 20 73/35 (48) 97 06/04/20 03:40 73/35 06/04/20 03:37 79 20 63/37 (46) 99 06/04/20 03:37 79 06/04/20 03:35 63/37 06/04/20 03:30 80 20 67/32 (44) 98 06/04/20 03:30 67/32 06/04/20 03:24 73/38 06/04/20 03:22 79 20 100 06/04/20 03:15 80 20 73/38 (50) 100 06/04/20 03:00 81 20 76/45 (55) 100 06/04/20 02:00 79 20 98/52 (67) 100 06/04/20 01:45 79 20 91/43 (59) 99 06/04/20 01:30 88 25 89/44 (59) 95 06/04/20 01:15 78 23 100 06/04/20 01:15 100 06/04/20 01:15 99 23 84/46 (59) 97 06/04/20 01:02 83 33 71/32 (45) 95 06/04/20 01:00 85 33 92 06/04/20 00:53 84 32 64/37 (46) 93 84 06/04/20 00:45 83 38 65/32 (43) 95 06/04/20 00:36 88 38 69/36 (47) 97 06/04/20 00:34 86 43 65/23 (37) 98 06/04/20 00:30 87 21 73/40 (51) 94 06/04/20 00:28 88 27 121/78 (92) 97 06/04/20 00:25 88 33 94 100 06/04/20 00:20 107 40 125/95 (105) 73 06/04/20 00:18 108 38 80/34 (49) 81 06/04/20 00:15 106 35 88/46 (60) 77 06/04/20 00:10 122 38 75/36 (49) 73 06/04/20 00:06 107 27 78/40 (53) 84 06/04/20 00:00 99.1 99 51 56/24 (35) 100 06/04/20 00:00 15.0 06/04/20 00:00 Non-Rebreather 15.0 06/04/20 00:00 99 06/03/20 23:50 90 27 110/94 (99) 39 06/03/20 23:45 96 30 100/44 (62) 78 06/03/20 23:30 93 34 70/33 (45) 66 06/03/20 23:00 90 32 83/28 (46) 84 90 06/03/20 22:30 88 32 78/29 (45) 84 06/03/20 22:15 77 31 80/26 (44) 86 06/03/20 22:00 79 33 79/29 (46) 94 06/03/20 21:30 78 36 84/31 (48) 97 06/03/20 21:15 79 23 86/27 (46) 86 06/03/20 21:00 77 17 81/29 (46) 91 06/03/20 20:45 76 19 81/30 (47) 90 06/03/20 20:30 75 20 80/25 (43) 90 06/03/20 20:15 74 18 75/29 (44) 89 06/03/20 20:00 98.2 71 21 84/32 (49) 92 06/03/20 20:00 Non-Rebreather 15.0 06/03/20 20:00 71 06/03/20 20:00 15.0 06/03/20 19:45 71 20 76/27 (43) 88 06/03/20 19:30 71 20 84/32 (49) 88 06/03/20 19:15 69 22 78/31 (47) 91 06/03/20 19:05 97 Non-Rebreather 15.0 100 06/03/20 19:05 92 18 97 Non-Rebreather 15.0 100 06/03/20 19:00 69 22 84/32 (49) 99 06/03/20 18:00 71 15 84/26 (45) 99 06/03/20 17:00 66 14 86/28 (47) 99 06/03/20 16:00 97.7 69 22 86/31 (49) 97 06/03/20 16:00 Non-Rebreather 15.0 06/03/20 16:00 15.0 06/03/20 16:00 62 06/03/20 15:00 70 18 87/31 (49) 95 06/03/20 14:00 65 19 95/33 (53) 100 06/03/20 13:00 69 18 96/43 (60) 100 06/03/20 12:00 97.2 70 15 93/36 (55) 99 06/03/20 12:00 Non-Rebreather 15.0 06/03/20 12:00 15.0 06/03/20 12:00 68 Status: awake Condition: critical HEENT: atraumatic, normocephalic Neck: full ROM Lungs: clear, chest wall tender Heart: HR/BP stable Abdomen: soft Extremities: no C/C/E Micro: Microbiology Date/Time Source Procedure Growth Status 06/03/20 04:50 Blood Blood Culture - Preliminary NO GROWTH AFTER 24 HOURS Resulted 06/03/20 04:45 Blood Blood Culture - Preliminary NO GROWTH AFTER 24 HOURS Resulted 06/03/20 13:30 Sputum Expectorated Gram Stain - Final Resulted 06/03/20 13:30 Sputum Expectorated Sputum Culture Pending Resulted 06/03/20 13:20 Nasopharynx SARS-CoV-2 RdRp Gene Assay - Final Complete Accucheck: 131 Critical Care - Subjective FI02: 80 Vent Support Breath Rate: 20 Vent Support Mode: AC Vent Tidal Volume: 500 Sputum Amount: Small PEEP: 5.0 PIP: 29 Tube Feeding Amount: 30 I&O: Intake and Output 06/03/20 06/04/20 19:00 07:00 Intake Total 1885 ml 1230.620 ml Output Total 225 ml 255 ml Balance 1660 ml 975.620 ml IV Total 1885 ml 1140.620 ml Other 90 ml Output Urine Total 225 ml 255 ml # Bowel Movements 1 2 CXR: ET in good position, extensive infiltrate ET-Tube: 7.5 ET Position: 22 Labs: Laboratory Tests Test 06/03/20 13:25 06/03/20 23:59 06/04/20 03:54 06/04/20 05:14 Urine Color Yellow Urine Appearance Clear Urine pH 5.0 (4.5-8.0) Urine Specific [place] 1.015 (1.005-1.035) Urine Protein Negative (NEGATIVE) Urine Glucose (UA) Negative (NEGATIVE) Urine Ketones Negative (NEGATIVE) Urine Blood 4+ (NEGATIVE) H Urine Nitrite Negative (NEGATIVE) Urine Bilirubin Negative (NEGATIVE) Urine Urobilinogen Normal MG/DL (0.0-1.0) Urine Leukocyte Esterase Negative (NEGATIVE) Urine RBC 20-30 /HPF (0 - 2) H Urine WBC 0-2 /HPF (0 - 2) Urine Squamous Epithelial Cells Occasional /LPF Urine Bacteria Occasional /HPF (NONE) Urine Random Sodium < 20 mmol/L (20-110) L Arterial Blood pH 7.130 (7.350-7.450) 7.487 (7.350-7.450) Arterial Blood Partial Pressure CO2 77.9 mmHg (35.0-45.0) *H 27.4 mmHg (35.0-45.0) L Arterial Blood Partial Pressure O2 46.0 mmHg (75.0-100.0) 53.3 mmHg (75.0-100.0) L Arterial Blood HCO3 25.3 mmol/L (22.0-26.0) 20.3 mmol/L (22.0-26.0) L Arterial Blood Oxygen Saturation 71.7 % (95-100) *L 90.2 % (95-100) L Arterial Blood Base Excess -5 (-2-2) L -2.2 (-2-2) L Jonathan Test Negative Positive White Blood Count 19.8 K/UL (4.8-10.8) H Red Blood Count 3.13 M/UL (4.20-5.40) L Hemoglobin 10.9 G/DL (12.0-16.0) L Hematocrit 33.1 % (37.0-47.0) L Mean Corpuscular Volume 106 FL (80-99) H Mean Corpuscular Hemoglobin 34.7 PG (27.0-31.0) H Mean Corpuscular Hemoglobin Concent 32.9 G/DL (32.0-36.0) Red Cell Distribution Width 12.8 % (11.6-14.8) Platelet Count 212 K/UL (150-450) Mean Platelet Volume 7.0 FL (6.5-10.1) Neutrophils (%) (Auto) % (45.0-75.0) Lymphocytes (%) (Auto) % (20.0-45.0) Monocytes (%) (Auto) % (1.0-10.0) Eosinophils (%) (Auto) % (0.0-3.0) Basophils (%) (Auto) % (0.0-2.0) Differential Total Cells Counted 100 Neutrophils % (Manual) 84 % (45-75) H Lymphocytes % (Manual) 10 % (20-45) L Monocytes % (Manual) 6 % (1-10) Eosinophils % (Manual) 0 % (0-3) Basophils % (Manual) 0 % (0-2) Band Neutrophils 0 % (0-8) Platelet Estimate Adequate Platelet Morphology Normal Macrocytosis 1+ Sodium Level 146 MMOL/L (136-145) H Potassium Level 3.4 MMOL/L (3.5-5.1) L Chloride Level 110 MMOL/L (98-107) H Carbon Dioxide Level 22 MMOL/L (21-32) Anion Gap 14 mmol/L (5-15) Blood Urea Nitrogen 19 mg/dL (7-18) H Creatinine 2.2 MG/DL (0.55-1.30) H Estimat Glomerular Filtration Rate 22.9 mL/min (>60) Glucose Level 79 MG/DL (74-106) Hemoglobin A1c 4.6 % (4.3-6.0) Lactic Acid Level 3.00 mmol/L (0.4-2.0) H Uric Acid 4.0 MG/DL (2.6-7.2) Calcium Level 8.2 MG/DL (8.5-10.1) L Phosphorus Level 2.7 MG/DL (2.5-4.9) Magnesium Level 2.2 MG/DL (1.8-2.4) Total Bilirubin 0.5 MG/DL (0.2-1.0) Gamma Glutamyl Transpeptidase 10 U/L (5-85) Aspartate Amino Transf (AST/SGOT) 25 U/L (15-37) Alanine Aminotransferase (ALT/SGPT) 9 U/L (12-78) L Alkaline Phosphatase 39 U/L (46-116) L Lactate Dehydrogenase 247 U/L (81-234) H Troponin I 0.057 ng/mL (0.000-0.056) C-Reactive Protein, Quantitative 19.4 mg/dL (0.00-0.90) H Pro-B-Type Natriuretic Peptide 70948 pg/mL (0-125) H Total Protein 5.6 G/DL (6.4-8.2) L Albumin 1.9 G/DL (3.4-5.0) L Globulin 3.7 g/dL Albumin/Globulin Ratio 0.5 (1.0-2.7) L Triglycerides Level 67 MG/DL (30-150) Cholesterol Level 81 MG/DL (< 200) LDL Cholesterol 51 mg/dL (<100) HDL Cholesterol 15 MG/DL (40-60) L Cholesterol/HDL Ratio 5.4 (3.3-4.4) H Random Vancomycin Level 19.4 ug/mL Valproic Acid (Depakene) Level 43 MCG/ML (50-100) L Elayne Allred MD Jun 04, 2020 11:31
--- NOTE | 2020-06-04 12:00 | NUR ---
NURSE NOTES: Patient stable at this time. Bradycardic in 50's. Will continue to monitor.
[2020-06-04] MEDS ORDERED: Tubing IV Secondary IV ONE (12:37)
[2020-06-04] MEDS ORDERED: D5W 275ml ONE (12:37)
[2020-06-04] MEDS ORDERED: NS 275ml ONE (12:37)
--- NOTE | 2020-06-04 12:50 | Infectious Diseases Prog Note ---
Assessment/Plan ASSESSMENT: sp code blue 06/03 Septic Shock Fever Mild leukocytosis; increased -06/03 u/a no pyuria; ucxp \ Pneumonia.- COVID 19 neg x3 Acute hypoxic resp filure on VM> NRB 15l 100%; hypoxic on ABG> now VDRF 06/03 - Fio2 80% -06/03 sp cx p -06/02 CXR: Increased atelectasis of the right lung, since prior exam of 3 days earlier. New or increased right pleural effusion. Increased left basilar consolidation and/or pleural fluid -COVID Rapid PCR neg 05/31, 05/31, 06/03 -05/30 spc x Group G strep -05/30 CXR: Reduced lung volumes. Patchy bilateral predominantly interstitial pulmonary opacities. Could be from edema and/or pneumonia. There is a broader differential. Persistent, high grade bacteremia- r/o MRSA; r/o endocarditis -05/30 Bcx 4/4 sets S. haemolyticus; 05/31 Bcx 3/4 S/ epi; 06/03 Bcx NTD -2d echo: no vegetaions seen R/o probable UTI ua/ wbc 10-15, nit neg, leuk +1; ucx Neg LEANN; worsening -supratherapeutic vanco levels -Seizure disorder. - Hypothyroidism. - Down syndrome. History of PEG tube placement. NM resident PLAN: 1. empiric Daptomycin #3 (abx d #6) for GPC bacteremia in view of LEANN Meropenem#2 (abx d #6) given resp decompensation add empiric Micafungin 06/03 SP Azithromycin #5, Ceftriaxone #2 06/02 SP IV Vancomycin #4, Zosyn #4 -05/30 SP Cefepime x1, Flagyl x1 2. Monitor CBC. 3. Monitor BMP. 4. Monitor culture 5.f/u Repeat cx 6. COVID neg x3 7. Monitor chest x-ray. 8. Monitor the patient's clinical course and labs. Based on those, we will do further recommendation. Thank you, Dr. Allred, for allowing me to participate in the care of this patient. I will follow the patient with you at this hospitalization. Discussed with RN. Subjective Allergies: Coded Allergies: No Known Allergies (Unverified , 10/16/18) sp intubation yesterday, now FIo2 80% now on levophed at 22 wbc and cr increased Tm 102.8 Objective Last 24 Hour Vital Signs Date Time Temp Pulse Resp B/P (MAP) Pulse Ox O2 Delivery O2 Flow Rate FiO2 06/04/20 12:00 61 06/04/20 11:00 62 20 110/48 (68) 96 06/04/20 10:31 102/51 06/04/20 10:25 80 06/04/20 10:22 67 20 80 06/04/20 10:00 68 20 99/45 (63) 97 06/04/20 09:30 100.3 06/04/20 09:30 71 20 100/44 (62) 97 06/04/20 09:11 74 20 90 06/04/20 09:10 90 06/04/20 09:00 76 20 98/46 (63) 95 06/04/20 08:30 77 20 99/46 (63) 95 06/04/20 08:02 99/44 06/04/20 08:00 102.8 77 20 99/46 (63) 97 06/04/20 08:00 63 06/04/20 08:00 Endotracheal Tube 06/04/20 08:00 100 06/04/20 07:30 102.0 77 20 102/47 (65) 97 06/04/20 07:26 78 20 100 06/04/20 07:00 102/46 06/04/20 07:00 83 21 102/46 (64) 94 06/04/20 06:45 78 20 90/43 (59) 94 06/04/20 06:30 79 20 89/40 (56) 93 06/04/20 06:15 79 20 94/39 (57) 98 06/04/20 06:00 80 20 89/39 (56) 93 06/04/20 06:00 89/39 06/04/20 05:45 80 20 89/51 (64) 93 06/04/20 05:41 80 20 91/38 (55) 94 06/04/20 05:30 81 20 94/36 (55) 94 06/04/20 05:25 80 20 100 06/04/20 05:15 80 20 82/36 (51) 95 06/04/20 05:08 80 20 86/37 (53) 97 06/04/20 05:00 84/36 06/04/20 05:00 81 20 85/38 (54) 98 06/04/20 04:45 85/38 06/04/20 04:45 80 20 85/38 (54) 99 06/04/20 04:30 83/37 06/04/20 04:30 79 20 83/37 (52) 99 06/04/20 04:15 78 20 89/32 (51) 100 06/04/20 04:15 89/32 06/04/20 04:05 78 20 83/31 (48) 100 06/04/20 04:00 Mechanical Ventilator 06/04/20 04:00 100 06/04/20 04:00 75/41 06/04/20 04:00 99.0 76 20 75/41 (52) 98 06/04/20 03:50 80/40 06/04/20 03:45 77 19 80/40 (53) 99 06/04/20 03:41 78 20 73/35 (48) 97 06/04/20 03:40 73/35 06/04/20 03:37 79 20 63/37 (46) 99 06/04/20 03:37 79 06/04/20 03:35 63/37 06/04/20 03:30 80 20 67/32 (44) 98 06/04/20 03:30 67/32 06/04/20 03:24 73/38 06/04/20 03:22 79 20 100 06/04/20 03:15 80 20 73/38 (50) 100 06/04/20 03:00 81 20 76/45 (55) 100 06/04/20 02:00 79 20 98/52 (67) 100 06/04/20 01:45 79 20 91/43 (59) 99 06/04/20 01:30 88 25 89/44 (59) 95 06/04/20 01:15 78 23 100 06/04/20 01:15 100 06/04/20 01:15 99 23 84/46 (59) 97 06/04/20 01:02 83 33 71/32 (45) 95 06/04/20 01:00 85 33 92 06/04/20 00:53 84 32 64/37 (46) 93 84 06/04/20 00:45 83 38 65/32 (43) 95 06/04/20 00:36 88 38 69/36 (47) 97 06/04/20 00:34 86 43 65/23 (37) 98 06/04/20 00:30 87 21 73/40 (51) 94 06/04/20 00:28 88 27 121/78 (92) 97 06/04/20 00:25 88 33 94 100 06/04/20 00:20 107 40 125/95 (105) 73 06/04/20 00:18 108 38 80/34 (49) 81 06/04/20 00:15 106 35 88/46 (60) 77 06/04/20 00:10 122 38 75/36 (49) 73 06/04/20 00:06 107 27 78/40 (53) 84 06/04/20 00:00 99.1 99 51 56/24 (35) 100 06/04/20 00:00 15.0 06/04/20 00:00 Non-Rebreather 15.0 06/04/20 00:00 99 06/03/20 23:50 90 27 110/94 (99) 39 06/03/20 23:45 96 30 100/44 (62) 78 06/03/20 23:30 93 34 70/33 (45) 66 06/03/20 23:00 90 32 83/28 (46) 84 90 06/03/20 22:30 88 32 78/29 (45) 84 06/03/20 22:15 77 31 80/26 (44) 86 06/03/20 22:00 79 33 79/29 (46) 94 06/03/20 21:30 78 36 84/31 (48) 97 06/03/20 21:15 79 23 86/27 (46) 86 06/03/20 21:00 77 17 81/29 (46) 91 06/03/20 20:45 76 19 81/30 (47) 90 06/03/20 20:30 75 20 80/25 (43) 90 06/03/20 20:15 74 18 75/29 (44) 89 06/03/20 20:00 98.2 71 21 84/32 (49) 92 06/03/20 20:00 Non-Rebreather 15.0 06/03/20 20:00 71 06/03/20 20:00 15.0 8/26/20 19:45 71 20 76/27 (43) 88 06/03/20 19:30 71 20 84/32 (49) 88 06/03/20 19:15 69 22 78/31 (47) 91 06/03/20 19:05 97 Non-Rebreather 15.0 100 06/03/20 19:05 92 18 97 Non-Rebreather 15.0 100 06/03/20 19:00 69 22 84/32 (49) 99 06/03/20 18:00 71 15 84/26 (45) 99 06/03/20 17:00 66 14 86/28 (47) 99 06/03/20 16:00 97.7 69 22 86/31 (49) 97 06/03/20 16:00 Non-Rebreather 15.0 06/03/20 16:00 15.0 06/03/20 16:00 62 06/03/20 15:00 70 18 87/31 (49) 95 06/03/20 14:00 65 19 95/33 (53) 100 06/03/20 13:00 69 18 96/43 (60) 100 Height (Feet): 5 Height (Inches): 3.00 Weight (Pounds): 147 HEENT: No pale conjunctivae. No icterus. NRB in palce NECK: No lymphadenopathy. CHEST: Coarse breathing sounds. HEART: S1 and S2. ABDOMEN: Soft. PEG tube in place. EXTREMITIES: No cyanosis at this time . Microbiology Date/Time Source Procedure Growth Status 06/03/20 04:50 Blood Blood Culture - Preliminary NO GROWTH AFTER 24 HOURS Resulted 06/03/20 04:45 Blood Blood Culture - Preliminary NO GROWTH AFTER 24 HOURS Resulted 06/03/20 13:30 Sputum Expectorated Gram Stain - Final Resulted 06/03/20 13:30 Sputum Expectorated Sputum Culture Pending Resulted 06/03/20 13:20 Nasopharynx SARS-CoV-2 RdRp Gene Assay - Final Complete Laboratory Tests Test 06/03/20 13:25 06/03/20 23:59 06/04/20 03:54 06/04/20 05:14 Urine Color Yellow Urine Appearance Clear Urine pH 5.0 (4.5-8.0) Urine Specific [place] 1.015 (1.005-1.035) Urine Protein Negative (NEGATIVE) Urine Glucose (UA) Negative (NEGATIVE) Urine Ketones Negative (NEGATIVE) Urine Blood 4+ (NEGATIVE) H Urine Nitrite Negative (NEGATIVE) Urine Bilirubin Negative (NEGATIVE) Urine Urobilinogen Normal MG/DL (0.0-1.0) Urine Leukocyte Esterase Negative (NEGATIVE) Urine RBC 20-30 /HPF (0 - 2) H Urine WBC 0-2 /HPF (0 - 2) Urine Squamous Epithelial Cells Occasional /LPF Urine Bacteria Occasional /HPF (NONE) Urine Random Sodium < 20 mmol/L (20-110) L Arterial Blood pH 7.130 (7.350-7.450) 7.487 (7.350-7.450) Arterial Blood Partial Pressure CO2 77.9 mmHg (35.0-45.0) *H 27.4 mmHg (35.0-45.0) L Arterial Blood Partial Pressure O2 46.0 mmHg (75.0-100.0) 53.3 mmHg (75.0-100.0) L Arterial Blood HCO3 25.3 mmol/L (22.0-26.0) 20.3 mmol/L (22.0-26.0) L Arterial Blood Oxygen Saturation 71.7 % (95-100) *L 90.2 % (95-100) L Arterial Blood Base Excess -5 (-2-2) L -2.2 (-2-2) L Jonathan Test Negative Positive White Blood Count 19.8 K/UL (4.8-10.8) H Red Blood Count 3.13 M/UL (4.20-5.40) L Hemoglobin 10.9 G/DL (12.0-16.0) L Hematocrit 33.1 % (37.0-47.0) L Mean Corpuscular Volume 106 FL (80-99) H Mean Corpuscular Hemoglobin 34.7 PG (27.0-31.0) H Mean Corpuscular Hemoglobin Concent 32.9 G/DL (32.0-36.0) Red Cell Distribution Width 12.8 % (11.6-14.8) Platelet Count 212 K/UL (150-450) Mean Platelet Volume 7.0 FL (6.5-10.1) Neutrophils (%) (Auto) % (45.0-75.0) Lymphocytes (%) (Auto) % (20.0-45.0) Monocytes (%) (Auto) % (1.0-10.0) Eosinophils (%) (Auto) % (0.0-3.0) Basophils (%) (Auto) % (0.0-2.0) Differential Total Cells Counted 100 Neutrophils % (Manual) 84 % (45-75) H Lymphocytes % (Manual) 10 % (20-45) L Monocytes % (Manual) 6 % (1-10) Eosinophils % (Manual) 0 % (0-3) Basophils % (Manual) 0 % (0-2) Band Neutrophils 0 % (0-8) Platelet Estimate Adequate Platelet Morphology Normal Macrocytosis 1+ Sodium Level 146 MMOL/L (136-145) H Potassium Level 3.4 MMOL/L (3.5-5.1) L Chloride Level 110 MMOL/L (98-107) H Carbon Dioxide Level 22 MMOL/L (21-32) Anion Gap 14 mmol/L (5-15) Blood Urea Nitrogen 19 mg/dL (7-18) H Creatinine 2.2 MG/DL (0.55-1.30) H Estimat Glomerular Filtration Rate 22.9 mL/min (>60) Glucose Level 79 MG/DL (74-106) Hemoglobin A1c 4.6 % (4.3-6.0) Lactic Acid Level 3.00 mmol/L (0.4-2.0) H Uric Acid 4.0 MG/DL (2.6-7.2) Calcium Level 8.2 MG/DL (8.5-10.1) L Phosphorus Level 2.7 MG/DL (2.5-4.9) Magnesium Level 2.2 MG/DL (1.8-2.4) Total Bilirubin 0.5 MG/DL (0.2-1.0) Gamma Glutamyl Transpeptidase 10 U/L (5-85) Aspartate Amino Transf (AST/SGOT) 25 U/L (15-37) Alanine Aminotransferase (ALT/SGPT) 9 U/L (12-78) L Alkaline Phosphatase 39 U/L (46-116) L Lactate Dehydrogenase 247 U/L (81-234) H Troponin I 0.057 ng/mL (0.000-0.056) C-Reactive Protein, Quantitative 19.4 mg/dL (0.00-0.90) H Pro-B-Type Natriuretic Peptide 04787 pg/mL (0-125) H Total Protein 5.6 G/DL (6.4-8.2) L Albumin 1.9 G/DL (3.4-5.0) L Globulin 3.7 g/dL Albumin/Globulin Ratio 0.5 (1.0-2.7) L Triglycerides Level 67 MG/DL (30-150) Cholesterol Level 81 MG/DL (< 200) LDL Cholesterol 51 mg/dL (<100) HDL Cholesterol 15 MG/DL (40-60) L Cholesterol/HDL Ratio 5.4 (3.3-4.4) H Random Vancomycin Level 19.4 ug/mL Valproic Acid (Depakene) Level 43 MCG/ML (50-100) L Current Medications Medications (Trade) Dose Ordered Sig/Katy Route PRN Reason Start Time Stop Time Status Last Admin Dose Admin Acetaminophen (Tylenol) 650 mg Q4H PRN GT FEVER 06/03/20 11:45 07/03/20 11:44 06/04/20 09:00 Azithromycin 500 mg/Dextrose 275 ml @ 275 mls/hr Q24HRS IV 06/03/20 14:00 06/06/20 14:59 06/03/20 14:00 Chlorhexidine Gluconate (Alla-Hex 2%) 1 applic DAILY@2000 TOPIC 06/03/20 20:00 09/01/20 19:59 Daptomycin 350 mg/ Sodium Chloride 55 ml @ 100 mls/hr Q48H IV 06/05/20 11:00 06/09/20 10:59 Dextrose (Dextrose 50%) 25 ml Q30M PRN IV Hypoglycemia 06/03/20 11:30 08/28/20 11:29 Dextrose (Dextrose 50%) 50 ml Q30M PRN IV Hypoglycemia 06/03/20 11:30 08/28/20 11:29 Heparin Sodium (Porcine) (Heparin 5000 units/ml) 5,000 units EVERY 12 HOURS SUBQ 06/03/20 21:00 07/14/20 20:59 Heparin Sodium/ Sodium Chloride (Heparin 1000 units/500ml Premix) 1,000 unit ONCE PRN IV radiology 06/03/20 16:15 06/05/20 18:00 Levothyroxine Sodium (Synthroid) 75 mcg DAILY GT 06/04/20 09:00 06/30/20 08:59 06/04/20 08:44 Lidocaine HCl (Xylocaine 1% 30ml) 30 ml ONCE PRN INJ radioloty 06/03/20 16:15 06/05/20 18:00 Meropenem 1 gm/ Sodium Chloride 55 ml @ 110 mls/hr Q12H IVPB 06/03/20 16:00 06/08/20 15:59 06/04/20 02:17 Midodrine (Pro-Amatine) 5 mg Q6HR GT 06/04/20 12:00 09/01/20 11:59 06/04/20 12:14 Norepinephrine Bitartrate 8 mg/ Dextrose 558 ml @ 0 mls/hr Q24H IV 06/04/20 09:00 07/04/20 08:59 06/04/20 10:31 Ondansetron HCl (Zofran) 4 mg Q6H PRN IVP Nausea & Vomiting 06/03/20 12:00 06/29/20 11:59 Pantoprazole (Protonix) 40 mg DAILY IV 06/04/20 09:00 06/30/20 08:59 06/04/20 08:43 Polyethylene Glycol (Miralax) 17 gm DAILYPRN PRN GT Constipation 06/03/20 12:00 06/29/20 11:59 Sodium Chloride 1,000 ml @ 100 mls/hr Q10H IV 06/03/20 23:00 07/03/20 22:59 06/04/20 08:44 Temazepam (Restoril) 15 mg HSPRN PRN GT Insomnia 06/03/20 21:00 06/06/20 20:59 Valproic Acid (Depakene) 500 mg EVERY 8 HOURS GT 06/03/20 14:00 06/29/20 21:59 06/03/20 14:00 Suki Camejo M.D. Jun 04, 2020 12:49
[2020-06-04] MEDS: Azithromycin 500 MG in D5W 275 ML IV SCH (14:12)
[2020-06-04] MEDS: Micafungin 100 MG in NS 110 ML IVPB SCH (14:12)
--- NOTE | 2020-06-04 15:19 | NUR ---
CASE MANAGEMENT: REVIEW 06/04/20 SI: S/P CODE BLUE 06/03 PNA . DOWN SYNDROME . ENCEPHALOPATHY . SEIZURE DISORDER 99.5 61 20 110/43 95% ENDOTRACHEAL FiO2 70 TROP 0.057 BNP 26960 ALB 1.9 WBC 19.8 K+3.4 CL-110 BUN/CREAT 19/2.2 LACTIC ACID 3 LDH 247 ABG: pH 7.487 pCO2 27.4 pO2 53.3 HCO3 20.3 O2 SAT 90.2 ABG FROM 06/03@2359: pH 7.130 pCO2 77.9 pO2 46 O2 SAT 71.7 IS: LEVOPHED GTT PROTOCOL IV MEROPENEM BID IV AZITHROMYCIN QD IVF NS @100ML/HR IV SYNTHROID GT QAC IV DEPAKENE GT TID PRO-AMATINE GT Q6HR \: ICU DCP: PATIENT IS FROM [facility] PLAN: STABLE BP AND RESPIRATORY
--- NOTE | 2020-06-04 16:07 | NUR ---
NURSE NOTES: Patient titrated to 60% FIO2. Temperature 98.5F. Will start feeding now.
--- NOTE | 2020-06-04 18:58 | Internal Med Progress Note ---
Subjective Date of Service: Jun 04, 2020 Physician Name Joni Copeladn Attending Physician Elayne Allred MD Current Medications Medications (Trade) Dose Ordered Sig/Katy Route PRN Reason Start Time Stop Time Status Last Admin Dose Admin Acetaminophen (Tylenol) 650 mg Q4H PRN GT FEVER 06/03/20 11:45 07/03/20 11:44 06/04/20 09:00 Azithromycin 500 mg/Dextrose 275 ml @ 275 mls/hr Q24HRS IV 06/03/20 14:00 06/06/20 14:59 06/04/20 14:12 Chlorhexidine Gluconate (Alla-Hex 2%) 1 applic DAILY@2000 TOPIC 06/03/20 20:00 09/01/20 19:59 Daptomycin 350 mg/ Sodium Chloride 55 ml @ 100 mls/hr Q48H IV 06/05/20 11:00 06/09/20 10:59 Dextrose (Dextrose 50%) 25 ml Q30M PRN IV Hypoglycemia 06/03/20 11:30 08/28/20 11:29 Dextrose (Dextrose 50%) 50 ml Q30M PRN IV Hypoglycemia 06/03/20 11:30 08/28/20 11:29 Heparin Sodium (Porcine) (Heparin 5000 units/ml) 5,000 units EVERY 12 HOURS SUBQ 06/03/20 21:00 07/14/20 20:59 Heparin Sodium/ Sodium Chloride (Heparin 1000 units/500ml Premix) 1,000 unit ONCE PRN IV radiology 06/03/20 16:15 06/05/20 18:00 Levothyroxine Sodium (Synthroid) 75 mcg DAILY GT 06/04/20 09:00 06/30/20 08:59 06/04/20 08:44 Lidocaine HCl (Xylocaine 1% 30ml) 30 ml ONCE PRN INJ radioloty 06/03/20 16:15 06/05/20 18:00 Meropenem 1 gm/ Sodium Chloride 55 ml @ 110 mls/hr Q12H IVPB 06/03/20 16:00 06/08/20 15:59 06/04/20 15:54 Micafungin Sodium 100 mg/Sodium Chloride 110 ml @ 110 mls/hr Q24H IVPB 06/04/20 14:00 06/11/20 13:59 06/04/20 14:12 Midodrine (Pro-Amatine) 5 mg Q6HR GT 06/04/20 12:00 09/01/20 11:59 06/04/20 18:15 Norepinephrine Bitartrate 8 mg/ Dextrose 558 ml @ 0 mls/hr Q24H IV 06/04/20 09:00 07/04/20 08:59 06/04/20 17:49 Ondansetron HCl (Zofran) 4 mg Q6H PRN IVP Nausea & Vomiting 06/03/20 12:00 06/29/20 11:59 Pantoprazole (Protonix) 40 mg DAILY IV 06/04/20 09:00 06/30/20 08:59 06/04/20 08:43 Polyethylene Glycol (Miralax) 17 gm DAILYPRN PRN GT Constipation 06/03/20 12:00 06/29/20 11:59 Sodium Chloride 1,000 ml @ 100 mls/hr Q10H IV 06/03/20 23:00 07/03/20 22:59 06/04/20 18:16 Temazepam (Restoril) 15 mg HSPRN PRN GT Insomnia 06/03/20 21:00 06/06/20 20:59 Valproic Acid (Depakene) 500 mg EVERY 8 HOURS GT 06/03/20 14:00 06/29/20 21:59 06/04/20 14:12 Allergies: Coded Allergies: No Known Allergies (Unverified , 10/16/18) ROS Limited/Unobtainable: Yes Subjective 59 YO F with Down's syndrome admitted with hypoxia. Now sepsis and pneumonia. Cover for Int Med-DR [facility]. ICU. Intubated and sedated Objective Last Vital Signs Date Time Temp Pulse Resp B/P (MAP) Pulse Ox O2 Delivery O2 Flow Rate FiO2 06/04/20 18:00 60 20 104/42 (62) 94 06/04/20 16:43 60 06/04/20 16:30 98.5 06/04/20 16:00 Endotracheal Tube 06/04/20 00:00 15.0 Laboratory Tests Test 06/03/20 23:59 06/04/20 03:54 06/04/20 05:14 06/04/20 15:20 Arterial Blood pH 7.130 (7.350-7.450) 7.487 (7.350-7.450) Arterial Blood Partial Pressure CO2 77.9 mmHg (35.0-45.0) *H 27.4 mmHg (35.0-45.0) L Arterial Blood Partial Pressure O2 46.0 mmHg (75.0-100.0) 53.3 mmHg (75.0-100.0) L Arterial Blood HCO3 25.3 mmol/L (22.0-26.0) 20.3 mmol/L (22.0-26.0) L Arterial Blood Oxygen Saturation 71.7 % (95-100) *L 90.2 % (95-100) L Arterial Blood Base Excess -5 (-2-2) L -2.2 (-2-2) L Jonathan Test Negative Positive White Blood Count 19.8 K/UL (4.8-10.8) H Red Blood Count 3.13 M/UL (4.20-5.40) L Hemoglobin 10.9 G/DL (12.0-16.0) L Hematocrit 33.1 % (37.0-47.0) L Mean Corpuscular Volume 106 FL (80-99) H Mean Corpuscular Hemoglobin 34.7 PG (27.0-31.0) H Mean Corpuscular Hemoglobin Concent 32.9 G/DL (32.0-36.0) Red Cell Distribution Width 12.8 % (11.6-14.8) Platelet Count 212 K/UL (150-450) Mean Platelet Volume 7.0 FL (6.5-10.1) Neutrophils (%) (Auto) % (45.0-75.0) Lymphocytes (%) (Auto) % (20.0-45.0) Monocytes (%) (Auto) % (1.0-10.0) Eosinophils (%) (Auto) % (0.0-3.0) Basophils (%) (Auto) % (0.0-2.0) Differential Total Cells Counted 100 Neutrophils % (Manual) 84 % (45-75) H Lymphocytes % (Manual) 10 % (20-45) L Monocytes % (Manual) 6 % (1-10) Eosinophils % (Manual) 0 % (0-3) Basophils % (Manual) 0 % (0-2) Band Neutrophils 0 % (0-8) Platelet Estimate Adequate Platelet Morphology Normal Macrocytosis 1+ Sodium Level 146 MMOL/L (136-145) H Potassium Level 3.4 MMOL/L (3.5-5.1) L Chloride Level 110 MMOL/L (98-107) H Carbon Dioxide Level 22 MMOL/L (21-32) Anion Gap 14 mmol/L (5-15) Blood Urea Nitrogen 19 mg/dL (7-18) H Creatinine 2.2 MG/DL (0.55-1.30) H Estimat Glomerular Filtration Rate 22.9 mL/min (>60) Glucose Level 79 MG/DL (74-106) Hemoglobin A1c 4.6 % (4.3-6.0) Lactic Acid Level 3.00 mmol/L (0.4-2.0) H 2.50 mmol/L (0.4-2.0) H Uric Acid 4.0 MG/DL (2.6-7.2) Calcium Level 8.2 MG/DL (8.5-10.1) L Phosphorus Level 2.7 MG/DL (2.5-4.9) Magnesium Level 2.2 MG/DL (1.8-2.4) Total Bilirubin 0.5 MG/DL (0.2-1.0) Gamma Glutamyl Transpeptidase 10 U/L (5-85) Aspartate Amino Transf (AST/SGOT) 25 U/L (15-37) Alanine Aminotransferase (ALT/SGPT) 9 U/L (12-78) L Alkaline Phosphatase 39 U/L (46-116) L Lactate Dehydrogenase 247 U/L (81-234) H Troponin I 0.057 ng/mL (0.000-0.056) C-Reactive Protein, Quantitative 19.4 mg/dL (0.00-0.90) H Pro-B-Type Natriuretic Peptide 55968 pg/mL (0-125) H Total Protein 5.6 G/DL (6.4-8.2) L Albumin 1.9 G/DL (3.4-5.0) L Globulin 3.7 g/dL Albumin/Globulin Ratio 0.5 (1.0-2.7) L Triglycerides Level 67 MG/DL (30-150) Cholesterol Level 81 MG/DL (< 200) LDL Cholesterol 51 mg/dL (<100) HDL Cholesterol 15 MG/DL (40-60) L Cholesterol/HDL Ratio 5.4 (3.3-4.4) H Random Vancomycin Level 19.4 ug/mL Valproic Acid (Depakene) Level 43 MCG/ML (50-100) L Microbiology Date/Time Source Procedure Growth Status 06/03/20 04:50 Blood Blood Culture - Preliminary NO GROWTH AFTER 24 HOURS Resulted 06/03/20 04:45 Blood Blood Culture - Preliminary NO GROWTH AFTER 24 HOURS Resulted 06/03/20 13:30 Sputum Expectorated Gram Stain - Final Resulted 06/03/20 13:30 Sputum Expectorated Sputum Culture Pending Resulted 06/03/20 13:20 Nasopharynx SARS-CoV-2 RdRp Gene Assay - Final Complete Intake and Output 06/03/20 06/04/20 19:00 07:00 Intake Total 1885 ml 1230.620 ml Output Total 225 ml 255 ml Balance 1660 ml 975.620 ml IV Total 1885 ml 1140.620 ml Other 90 ml Output Urine Total 225 ml 255 ml # Bowel Movements 1 2 Objective General Appearance: WD/WN, no apparent distress, alert EENT: PERRL/EOMI, normal ENT inspection Neck: non-tender, normal alignment, supple, normal inspection Cardiovascular: normal peripheral pulses, normal rate, regular rhythm, no gallop/murmur, no JVD Respiratory/Chest: Mech vent; decreased breath sounds, crackles/rales, rhonchi - bilaterally, expiratory wheezing Abdomen: normal bowel sounds, non tender, soft, no organomegaly, no mass Extremities: normal range of motion 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 Continue daptomycin per ID=Dr Camejo. Pulmonary/Critical care=DR Allred. COVID NEG (2) Sepsis Assessment & Plan: Staph haemolyticus. Continue daptomycin and ceftriaxone per ID=Dr Camejo (3) Down's syndrome (4) Dysphagia Assessment & Plan: S/P PEG (5) Seizure disorder Assessment & Plan: Continue keppra and depakote (6) Hypothyroidism Assessment & Plan: Continue synthroid (7) Acute respiratory failure Assessment & Plan: Pulmonary = Dr Allred; [facility] vent Joni Copeland MD Jun 04, 2020 18:58
--- NOTE | 2020-06-04 19:20 | NUR ---
NURSE HAND-OFF REPORT: Latest Vital Signs: Temperature 98.5 , Pulse 61 , B/P 98 /37 , Respiratory Rate 20 , O2 SAT 94 , Endotracheal Tube, O2 Flow Rate 15.0 . Vital Sign Comment: Stable with Levophed EKG Rhythm: Sinus Rhythm Rhythm change?: N MD Notified?: - MD Response: Latest Osorio Fall Score: 50 Fall Risk: High Risk Safety Measures: Call light Within Reach, Bed Alarm Zone 1, Side Rails Side Rails x3, Bed position Low and Locked. Fall Precautions: Yellow Socks Door Sign Patient Fall Education Report given to .
--- NOTE | 2020-06-04 19:20 | NUR ---
NURSE NOTES: Received patient and report from [facility]. Patient is observed resting in bed and noted to be confused but responsive to stimuli. Pt is currently unable to follow commands. Eyes noted to open spontaneously, 4mm sluggish reaction to light and pt withdrawals to pain. No pain noted upon assessment. Pt is currently orally intubated ett size 7.5 noted to be 22 @ lip. Pt appears to be tolerating vent settings well; Vent settings as follows: AC 20 TV 500 FiO2 60% PEEP 5 with an O2 saturation of 97% noted at this time. Bilateral lower lobe breath sounds noted to be diminished upon auscultation and rhonchi noted in bilateral upper and lower lobes. Pt noted to be SR on tele monitor with a HR of 72 with no s/sx of acute cardiac distress noted. R Hand 22g and L Hand 22g IV catheters noted which remains asymptomatic, intact and patent. L femoral TLC noted which remains intact, patent and asymptomatic. Central line dressing remains clean ,dry and intact. G tube noted which remains intact and patent. Jevity 1.2 currently infusing at 20mL/hr as ordered with 35mL residual noted. Active bowel sounds noted in all four quadrants, abdomen remains large, soft and round. Diagnostics reviewed at bedside. Skin alterations noted. Pt repositioned for comfort and safety. Fall, Aspiration and Skin precautions observed. Pt remains resting in bed; Bed remains in the lowest position with the safety wheels engaged, call light within reach, side rails up x3 and bed alarm activated. Will continue plan of care. Will continue to monitor.
[2020-06-04] MEDS: Dyna-Hex 2% Top Sol 2oz TOPIC SCH (20:19)
--- NOTE | 2020-06-04 21:00 | NUR ---
NURSE NOTES: Pt provided with a CHG bed bath, oral care and linen change. ROM exercises performed per pt tolerance. Pt tolerated care well. Bedside assessment performed, assessed pt with a FLACC scale of 0 noted. VS obtained and remain stable at this time. Levophed continues to infuse at 22 mcg/min with no adverse effects noted. SBP remains between 90-104, will continue to monitor and titrate accordingly. NS continues infusing at 100mL/hr as ordered without incident. Fall, Aspiration and Skin precautions observed. Pt remains resting in bed; Bed remains in the lowest position with the safety wheels engaged, call light within reach, side rails up x3 and bed alarm activated. Will continue plan of care. Will continue to monitor.
--- NOTE | 2020-06-04 23:00 | NUR ---
NURSE NOTES: Pt provided with a CHG bed bath, oral care and linen change. ROM exercises performed per pt tolerance. Pt tolerated care well. Bedside assessment performed, assessed pt with a FLACC scale of 0 noted. VS obtained and remain stable at this time. Levophed continues to infuse at 22 mcg/min with no adverse effects noted from medication administration. VS obtained and SBP remains >90 at this time. Fall, Aspiration and Skin precautions observed. Pt remains resting in bed; Bed remains in the lowest position with the safety wheels engaged, call light within reach, side rails up x3 and bed alarm activated. Will continue plan of care. Will continue to monitor.
[2020-06-05] VITALS (75 sets, daily range): BP systolic 56–137; BP diastolic 22–109
--- NOTE | 2020-06-05 01:00 | NUR ---
NURSE NOTES: Pt provided with a bed bath, oral care and linen change. Pt tolerated care well. Bedside assessment performed, assessed pt with a FLACC scale of 0 noted. VS obtained and remain stable at this time. SBP remains >90 and Levophed continues infusing at 22 mcg/min without evidence of adverse effects. Fall, Aspiration and Skin precautions observed. Pt remains resting in bed; Bed remains in the lowest position with the safety wheels engaged, call light within reach, side rails up x3 and bed alarm activated. Will continue plan of care. Will continue to monitor.
--- NOTE | 2020-06-05 03:00 | NUR ---
NURSE NOTES: Pt provided with a bed bath, oral care and linen change. Pt tolerated care well. Bedside assessment performed, assessed pt with a FLACC scale of 0 noted. VS obtained and remain stable at this time. SBP remains >90 and Levophed continues infusing at 22 mcg/min without evidence of adverse effects. Lactic Acid ordered along with AM labs per protocol as last result was >2 Fall, Aspiration, Seizure and Skin precautions observed. Pt remains resting in bed; Bed remains in the lowest position with the safety wheels engaged, call light within reach, side rails up x3 and bed alarm activated. Will continue plan of care. Will continue to monitor.
[2020-06-05] MEDS: Meropenem 1 GM in NS 55 ML IVPB SCH ×2 (04:07→16:26)
[2020-06-05 04:57] LABS: HEMATOCRIT 33.1 % (37.0-47.0); HEMOGLOBIN 11.2 G/DL (12.0-16.0); MEAN CORPUSCULAR VOLUME 103 FL (80-99); PLATELET COUNT 201 K/UL (150-450); RED BLOOD COUNT 3.21 M/UL (4.20-5.40); RED CELL DISTRIBUTION WIDTH 12.6 % (11.6-14.8); WHITE BLOOD COUNT 15.4 K/UL (4.8-10.8)
--- NOTE | 2020-06-05 05:00 | NUR ---
NURSE NOTES: Pt provided with a bed bath, oral care and linen change. Small, black, liquid stool noted. Pt tolerated care well. Bedside assessment performed, assessed pt for pain in which she currently denies. VS obtained and remain stable at this time. SBP remains >90 and Levophed continues infusing at 22 mcg/min without evidence of adverse effects. Urine output noted to gradually increase over duration of shift. FiO2 increased to 70% as pt noted to desaturate to 87% Fall, Aspiration, Seizure and Skin precautions observed. Pt remains resting in bed; Bed remains in the lowest position with the safety wheels engaged, call light within reach, side rails up x3 and bed alarm activated. Will continue plan of care. Will continue to monitor.
[2020-06-05] MEDS: Norepinephrine Bitartrate 8 MG in D5W 500ml 550 ML IV SCH ×4 (05:03→22:43)
[2020-06-05] MEDS: Valproic Acid 250mg/5ml Liquid GT SCH ×3 (05:03→22:38)
[2020-06-05 05:40] LABS: ALANINE AMINOTRANSFERASE 9 U/L (12-78); ALBUMIN 1.3 G/DL (3.4-5.0); ALBUMIN/GLOBULIN RATIO 0.4 (1.0-2.7); ALKALINE PHOSPHATASE 55 U/L (46-116); ANION GAP 11 mmol/L (5-15); ASPARTATE AMINO TRANSFERASE 34 U/L (15-37); BILIRUBIN,TOTAL 0.2 MG/DL (0.2-1.0); BLOOD UREA NITROGEN 18 mg/dL (7-18); CALCIUM 7.6 MG/DL (8.5-10.1); CARBON DIOXIDE 20 MMOL/L (21-32); CHLORIDE 105 MMOL/L (98-107); PHOSPHORUS 2.3 MG/DL (2.5-4.9); POTASSIUM 3.5 MMOL/L (3.5-5.1); SODIUM 136 MMOL/L (136-145)
--- NOTE | 2020-06-05 07:25 | NUR ---
NURSE HAND-OFF REPORT: Latest Vital Signs: Temperature 98.8 , Pulse 63 , B/P 100 /42 , Respiratory Rate 20 , O2 SAT 95 , Endotracheal Tube, O2 Flow Rate 15.0 . Vital Sign Comment: FiO2 increased to 70% EKG Rhythm: Sinus Rhythm Rhythm change?: N MD Notified?: - MD Response: N/A Latest Osorio Fall Score: 50 Fall Risk: High Risk Safety Measures: Call light Within Reach, Bed Alarm Zone 2, Side Rails Side Rails x3, Bed position Low and Locked. Fall Precautions: Yellow Socks Door Sign Patient Fall Education Report given to Nadine. LUJAN. Endorsed plan of care.
--- NOTE | 2020-06-05 07:54 | NUR ---
NURSE NOTES: Report received from TAI Renee. Alert and open eyes to deep pain. Orally intubated 7.5 AC 20 VT 500 FiO2 100.Afebrile at this time with no apparent acute distress.On GT feeding Jevity 1.2 at 30cc /hr and tolerate well.Placement intact and no residual at this time.LF/TLC running Levophed at 22mcg/hr and NS at 100 cc/hr.Gregorio catheter in place draining clear yellow urine with no apparent sediment. Abdomen soft and non distended.Bilateral lungs sounds diminished.HOB elevated to prevent aspiration and mouth care done, suctioned as tolerate.Patient turned and repositioned for comfort.Call light within easy reach.Will continue close monitoring.
--- NOTE | 2020-06-05 07:59 | NUR ---
RD ASSESSMENT & RECOMMENDATIONS SEE CARE ACTIVITY FOR COMPLETE ASSESSMENT DAILY ESTIMATED NEEDS: Needs based on CRITICAL CARE, 50kg 22-27 kcals/kg 7174-3792 total kcals 1.25-2 g protein/kg 63-100 g total protein 25-30 mL/kg 7144-8059 total fluid mLs NUTRITION DIAGNOSIS: Swallowing difficulty r/t dysphagia as evidenced by pt w/ Downs Syndrome, PEG dep for all nutritional needs, now intubated, pressor support, ICU status. CURRENT TF: Jevity 1.2 @30ml/hr ENTERAL NUTRITION RECOMMENDATIONS: VITAL AF 1.2 @50ml/hr x22 hrs to provide 1100ml, 1320 kcal, 83g pro, 892ml free H2O - As medically able, start VITAL 1.2 @20ml/hr for critical care and high pro needs. - Advance as tolerated to goal when hemodynamically stable - Hold TF 1 hr before and after synthroid meds - Flush per MD, HOB over 30 degrees. -> Rec trophic feeds if not hemodynamically stable. ADDITIONAL RECOMMENDATIONS: 1) Ht of 61 inches per SNF; recalibrate bed scale for accurate CBW 2) Monitor BG, lytes, and tolerance TF 3) Weekly weights on Calibrated bed scale 4) F/up with WC eval: add LEIDY in 4oz H2O BID via GT w/ TF orders 5) feed w/ stability, currently s/p Code, intubated, Levo @22
[2020-06-05] MEDS ORDERED: Potassium Phosphate 20 MM in NS 275 ML IV ONE (09:00)
[2020-06-05] MEDS: Pantoprazole Inj IV SCH (09:11)
[2020-06-05] MEDS: Heparin 5000 units/ml inj SUBQ SCH ×2 (09:12→20:54)
--- NOTE | 2020-06-05 10:14 | NUR ---
NURSE NOTES: Turned and repositioned, mouth care done.Tolerate well feeding.No significant change at this time. Call light within easy reach.Seen by Dr Pitt, will follow up with new orders
[2020-06-05] MEDS: Acetaminophen 650mg/20.3ml GT PRN (10:31)
[2020-06-05] MEDS: DAPTOmycin 350 MG in NS 55 ML IV SCH (10:31)
--- NOTE | 2020-06-05 10:36 | NUR ---
CASE MANAGEMENT: REVIEW 06/05/20 SI: ACUTE RESPIRATORY FAILURE .S/P CODE BLUE 06/03 AND INTUBATED . HCAP .SEPSIS . PHX: ENCEPHALOPATHY. DOWN SYNDROME . SEIZURE DISORDER 100.5 66 20 108/49 94% ENDOTRACHEAL FiO2 100 WBC 15.4 CO2 20 CREAT 2.0 CA+ 7.6 PHOS 2.3 ALB 1.3 ABG: CO2 33.2 PO2 74.9 HCO3 18.8 O2 SAT 94.5 BASE EXCESS -5.7 IS: IV KPHOS/NS X1 LEVOPHED GTT PROTOCOL IV DAPTOMYCIN Q48HR IV MEROPENEM BID IV AZITHROMYCIN QD IVF NS @100ML/HR IV SYNTHROID GT QAC IV DEPAKENE GT TID PRO-AMATINE GT Q6HR \: ICU DCP: PATIENT IS [facility]: STABLE BP AND RESPIRATORY STATUS CONTROL FEVER
--- NOTE | 2020-06-05 10:38 | Nephrology Progress Note ---
Assessment/Plan Problem List: (1) LEANN (acute kidney injury) (2) Respiratory failure requiring intubation (3) Down's syndrome (4) Seizure disorder (5) Hypothyroidism Assessment Acute renal failure, likely due to hypotension Acute respiratory distress, hypoxia Seizure disorder Hypothyroidism Down syndrome Full code Fluid challenge with IV fluids and albumin Midodrine for BP above 100 systolic Check TSH level Check Correct level Monitor renal parameters Urine studies Per orders Plan June 05: Remains intubated. Labs reviewed. Serum creatinine lower to 2. Vancomycin level lower. Remains hypotensive on pressors. Will increase midodrine to 10 mg every 8 hours. Continue per consultants. Continue to monitor renal parameters. June 04: Patient now in ICU. Intubated. On pressors. Labs reviewed. Will increase midodrine. Aim to keep blood pressure over 100 systolic. Will give albumin bolus. Will check vancomycin level which was elevated when checked previously on June 01. Will monitor renal parameters. Continue per consultants. Subjective ROS Limited/Unobtainable: Yes Objective Objective Last 24 Hour Vital Signs Date Time Temp Pulse Resp B/P (MAP) Pulse Ox O2 Delivery O2 Flow Rate FiO2 06/05/20 10:00 68 22 97/47 (64) 98 06/05/20 09:30 73 21 98/51 (67) 98 06/05/20 09:00 73 22 94/53 (67) 97 06/05/20 08:30 70 20 92/47 (62) 96 06/05/20 08:00 81 06/05/20 08:00 Endotracheal Tube 06/05/20 08:00 74 22 108/66 (80) 100 06/05/20 08:00 100 06/05/20 07:30 100.5 66 20 108/49 (68) 94 06/05/20 07:25 62 20 100 06/05/20 07:00 101/45 06/05/20 07:00 63 20 101/45 (63) 92 06/05/20 06:30 63 20 100/42 (61) 95 06/05/20 06:00 98/39 06/05/20 06:00 70 20 98/39 (58) 94 06/05/20 05:30 73 21 107/52 (70) 92 06/05/20 05:20 70 06/05/20 05:14 67 20 70 06/05/20 05:03 96/46 06/05/20 05:02 96/43 06/05/20 05:00 96/43 06/05/20 05:00 66 20 96/43 (60) 88 06/05/20 04:30 67 20 94/43 (60) 92 06/05/20 04:00 104/41 06/05/20 04:00 98.8 71 20 104/41 (62) 91 06/05/20 04:00 Endotracheal Tube 06/05/20 04:00 60 06/05/20 03:31 68 20 60 06/05/20 03:30 68 20 107/55 (72) 97 06/05/20 03:15 69 06/05/20 03:00 99/40 06/05/20 03:00 72 20 99/40 (59) 89 06/05/20 02:30 72 19 104/41 (62) 90 06/05/20 02:00 98/46 06/05/20 02:00 72 21 98/46 (63) 92 06/05/20 01:39 68 20 60 06/05/20 01:30 67 20 93/39 (57) 93 06/05/20 01:00 71 20 108/49 (68) 97 06/05/20 01:00 108/49 06/05/20 00:30 65 20 106/51 (69) 95 06/05/20 00:00 Endotracheal Tube 06/05/20 00:00 99.1 69 20 104/40 (61) 94 06/05/20 00:00 104/40 06/05/20 00:00 60 06/04/20 23:32 74 20 60 06/04/20 23:30 68 20 109/52 (71) 93 06/04/20 23:22 62 19 129/59 (82) 93 06/04/20 23:17 94/38 06/04/20 23:16 94/38 06/04/20 23:15 71 06/04/20 23:15 71 20 64/35 (45) 87 06/04/20 23:00 98/42 06/04/20 23:00 66 20 98/42 (60) 89 06/04/20 22:30 66 20 98/44 (62) 91 06/04/20 22:00 65 20 90/38 (55) 93 06/04/20 22:00 90/38 8/27/20 21:30 75 21 104/46 (65) 97 06/04/20 21:21 71 20 60 06/04/20 21:00 78 22 98/61 (73) 99 06/04/20 21:00 103/55 06/04/20 20:30 80 19 100/85 (90) 99 06/04/20 20:00 Endotracheal Tube 06/04/20 20:00 60 06/04/20 20:00 93/38 06/04/20 20:00 99.0 62 20 93/38 (56) 97 06/04/20 19:30 59 20 98/46 (63) 98 06/04/20 19:28 61 20 60 06/04/20 19:21 61 06/04/20 19:00 61 20 97/41 (59) 94 06/04/20 19:00 98/37 06/04/20 18:30 61 20 98/37 (57) 93 06/04/20 18:00 104/42 06/04/20 18:00 60 20 104/42 (62) 94 06/04/20 17:49 102/42 06/04/20 17:30 58 20 101/46 (64) 96 06/04/20 17:00 103/49 06/04/20 17:00 58 20 103/49 (67) 100 06/04/20 16:43 70 20 60 06/04/20 16:30 98.5 58 20 81/48 (59) 99 06/04/20 16:00 Endotracheal Tube 06/04/20 16:00 61 06/04/20 16:00 114/46 06/04/20 16:00 55 20 123/86 (98) 94 06/04/20 16:00 60 06/04/20 15:30 58 20 112/49 (70) 91 06/04/20 15:00 113/62 06/04/20 15:00 65 20 113/62 (79) 99 06/04/20 14:50 59 20 50 06/04/20 14:30 60 20 120/55 (76) 98 06/04/20 14:00 116/59 06/04/20 14:00 62 20 116/58 (77) 100 06/04/20 13:30 65 15 113/47 (69) 100 06/04/20 13:15 64 20 70 06/04/20 13:00 116/46 06/04/20 13:00 60 20 116/46 (69) 96 60 06/04/20 12:45 57 20 110/47 (68) 96 06/04/20 12:30 99.5 58 20 102/48 (66) 95 06/04/20 12:00 Endotracheal Tube 06/04/20 12:00 110/43 06/04/20 12:00 61 06/04/20 12:00 99.5 62 20 110/43 (65) 95 06/04/20 11:30 64 20 114/46 (68) 95 06/04/20 11:00 106/47 06/04/20 11:00 62 20 110/48 (68) 96 Intake and Output 06/04/20 06/05/20 19:00 07:00 Intake Total 3216.13 ml 2722.856 ml Output Total 175 ml 845 ml Balance 3041.13 ml 1877.856 ml Free Water 90 ml IV Total 3156.13 ml 2352.856 ml Tube Feeding 60 ml 280 ml Output Urine Total 175 ml 845 ml # Bowel Movements 1 Laboratory Tests 06/04/20 15:20: Lactic Acid Level 2.50H 06/05/20 04:05: Lactic Acid Level 1.90, White Blood Count 15.4H, Red Blood Count 3.21L, Hemoglobin 11.2L, Hematocrit 33.1L, Mean Corpuscular Volume 103H, Mean Corpuscular Hemoglobin 34.9H, Mean Corpuscular Hemoglobin Concent 33.9, Red Cell Distribution Width 12.6, Platelet Count 201, Mean Platelet Volume 6.7, Neutrophils (%) (Auto) , Lymphocytes (%) (Auto) , Monocytes (%) (Auto) , Eosinophils (%) (Auto) , Basophils (%) (Auto) , Sodium Level 136#, Potassium Level 3.5, Chloride Level 105, Carbon Dioxide Level 20L, Anion Gap 11, Blood Urea Nitrogen 18, Creatinine 2.0H, Estimat Glomerular Filtration Rate 25.6, Glucose Level 112H, Calcium Level 7.6L, Phosphorus Level 2.3L, Magnesium Level 1.8, Total Bilirubin 0.2, Aspartate Amino Transf (AST/SGOT) 34, Alanine Aminotransferase (ALT/SGPT) 9L, Alkaline Phosphatase 55, Total Protein 5.0L, Albumin 1.3L, Globulin 3.7, Albumin/Globulin Ratio 0.4L 06/05/20 08:10: Arterial Blood pH 7.370, Arterial Blood Partial Pressure CO2 33.2L, Arterial Blood Partial Pressure O2 74.9L, Arterial Blood HCO3 18.8L, Arterial Blood Oxygen Saturation 94.5L, Arterial Blood Base Excess -5.7L, Jonathan Test Positive Height (Feet): 5 Height (Inches): 3.00 Weight (Pounds): 149 General Appearance: no apparent distress EENT: other - Intubated on ventilator Cardiovascular: normal rate Respiratory/Chest: decreased breath sounds Abdomen: distended Keron Pitt MD Jun 05, 2020 10:38
--- NOTE | 2020-06-05 11:27 | Pulmonolgy Critical Care Note ---
Critical Care - Asmt/Plan Problems: (1) Acute respiratory failure (2) Pneumonia (3) Sepsis (4) HCAP (healthcare-associated pneumonia) (5) Seizure disorder (6) Down's syndrome Respiratory: monitor respiratory rate, adjust FIO2, CXR Cardiac: continue to monitor HR/BP Renal: F/U I&O, keep IV fluid Infectious Disease: check cultures Gastrointestinal: continue feedings/current rate Endocrine: monitor blood sugar Hematologic: monitor H/H, transfuse if hgb<8.5 Neurologic: PRN Ativan, keep patient comfortable Prophylaxis: Heparin Time Spent (Minutes): 40 Discussed with: nurses, consultants, medical case managerterritory account manager - Objective Last 24 Hour Vital Signs Date Time Temp Pulse Resp B/P (MAP) Pulse Ox O2 Delivery O2 Flow Rate FiO2 06/05/20 10:00 68 22 97/47 (64) 98 06/05/20 09:30 73 21 98/51 (67) 98 06/05/20 09:00 73 22 94/53 (67) 97 06/05/20 08:30 70 20 92/47 (62) 96 06/05/20 08:00 81 06/05/20 08:00 Endotracheal Tube 06/05/20 08:00 74 22 108/66 (80) 100 06/05/20 08:00 100 06/05/20 07:30 100.5 66 20 108/49 (68) 94 06/05/20 07:25 62 20 100 06/05/20 07:00 101/45 06/05/20 07:00 63 20 101/45 (63) 92 06/05/20 06:30 63 20 100/42 (61) 95 06/05/20 06:00 98/39 06/05/20 06:00 70 20 98/39 (58) 94 06/05/20 05:30 73 21 107/52 (70) 92 06/05/20 05:20 70 06/05/20 05:14 67 20 70 06/05/20 05:03 96/46 06/05/20 05:02 96/43 06/05/20 05:00 96/43 06/05/20 05:00 66 20 96/43 (60) 88 06/05/20 04:30 67 20 94/43 (60) 92 06/05/20 04:00 104/41 06/05/20 04:00 98.8 71 20 104/41 (62) 91 06/05/20 04:00 Endotracheal Tube 06/05/20 04:00 60 06/05/20 03:31 68 20 60 06/05/20 03:30 68 20 107/55 (72) 97 06/05/20 03:15 69 06/05/20 03:00 99/40 06/05/20 03:00 72 20 99/40 (59) 89 06/05/20 02:30 72 19 104/41 (62) 90 06/05/20 02:00 98/46 06/05/20 02:00 72 21 98/46 (63) 92 06/05/20 01:39 68 20 60 06/05/20 01:30 67 20 93/39 (57) 93 06/05/20 01:00 71 20 108/49 (68) 97 06/05/20 01:00 108/49 06/05/20 00:30 65 20 106/51 (69) 95 06/05/20 00:00 Endotracheal Tube 06/05/20 00:00 99.1 69 20 104/40 (61) 94 06/05/20 00:00 104/40 06/05/20 00:00 60 06/04/20 23:32 74 20 60 06/04/20 23:30 68 20 109/52 (71) 93 06/04/20 23:22 62 19 129/59 (82) 93 06/04/20 23:17 94/38 06/04/20 23:16 94/38 06/04/20 23:15 71 06/04/20 23:15 71 20 64/35 (45) 87 06/04/20 23:00 98/42 06/04/20 23:00 66 20 98/42 (60) 89 06/04/20 22:30 66 20 98/44 (62) 91 06/04/20 22:00 65 20 90/38 (55) 93 06/04/20 22:00 90/38 06/04/20 21:30 75 21 104/46 (65) 97 06/04/20 21:21 71 20 60 06/04/20 21:00 78 22 98/61 (73) 99 06/04/20 21:00 103/55 8/27/20 20:30 80 19 100/85 (90) 99 06/04/20 20:00 Endotracheal Tube 06/04/20 20:00 60 06/04/20 20:00 93/38 06/04/20 20:00 99.0 62 20 93/38 (56) 97 06/04/20 19:30 59 20 98/46 (63) 98 06/04/20 19:28 61 20 60 06/04/20 19:21 61 06/04/20 19:00 61 20 97/41 (59) 94 06/04/20 19:00 98/37 06/04/20 18:30 61 20 98/37 (57) 93 06/04/20 18:00 104/42 06/04/20 18:00 60 20 104/42 (62) 94 06/04/20 17:49 102/42 06/04/20 17:30 58 20 101/46 (64) 96 06/04/20 17:00 103/49 06/04/20 17:00 58 20 103/49 (67) 100 06/04/20 16:43 70 20 60 06/04/20 16:30 98.5 58 20 81/48 (59) 99 06/04/20 16:00 Endotracheal Tube 06/04/20 16:00 61 06/04/20 16:00 114/46 06/04/20 16:00 55 20 123/86 (98) 94 06/04/20 16:00 60 06/04/20 15:30 58 20 112/49 (70) 91 06/04/20 15:00 113/62 06/04/20 15:00 65 20 113/62 (79) 99 06/04/20 14:50 59 20 50 06/04/20 14:30 60 20 120/55 (76) 98 06/04/20 14:00 116/59 06/04/20 14:00 62 20 116/58 (77) 100 06/04/20 13:30 65 15 113/47 (69) 100 06/04/20 13:15 64 20 70 06/04/20 13:00 116/46 06/04/20 13:00 60 20 116/46 (69) 96 60 06/04/20 12:45 57 20 110/47 (68) 96 06/04/20 12:30 99.5 58 20 102/48 (66) 95 06/04/20 12:00 Endotracheal Tube 06/04/20 12:00 110/43 06/04/20 12:00 61 06/04/20 12:00 99.5 62 20 110/43 (65) 95 06/04/20 11:30 64 20 114/46 (68) 95 Status: sedated Condition: critical, grave Neck: full ROM Lungs: clear Heart: HR/BP stable Abdomen: soft, feeding tube Extremities: no C/C/E Micro: Microbiology Date/Time Source Procedure Growth Status 06/03/20 04:50 Blood Blood Culture - Preliminary NO GROWTH AFTER 24 HOURS Resulted 06/03/20 04:45 Blood Blood Culture - Preliminary NO GROWTH AFTER 24 HOURS Resulted 06/03/20 13:30 Nasal Nares MRSA Culture - Final NO METHICILLIN RESISTANT STAPH AUREUS... Complete 06/03/20 13:30 Sputum Expectorated Gram Stain - Final Complete 06/03/20 13:30 Sputum Expectorated Sputum Culture - Final NORMAL UPPER RESPIRATORY MARIA A PRESENT Complete 06/03/20 13:20 Nasopharynx SARS-CoV-2 RdRp Gene Assay - Final Complete Accucheck: 131 Critical Care - Subjective ROS Limited/Unobtainable: Yes Interval Events: looks comfortable FI02: 100 Vent Support Breath Rate: 20 Vent Support Mode: AC Vent Tidal Volume: 500 Sputum Amount: Small PEEP: 5.0 PIP: 30 Tube Feeding Amount: 30 I&O: Intake and Output 06/04/20 06/05/20 19:00 07:00 Intake Total 3216.13 ml 2722.856 ml Output Total 175 ml 845 ml Balance 3041.13 ml 1877.856 ml Free Water 90 ml IV Total 3156.13 ml 2352.856 ml Tube Feeding 60 ml 280 ml Output Urine Total 175 ml 845 ml # Bowel Movements 1 ET-Tube: 7.5 ET Position: 22 Labs: Laboratory Tests Test 06/04/20 15:20 06/05/20 04:05 06/05/20 08:10 Lactic Acid Level 2.50 mmol/L (0.4-2.0) H 1.90 mmol/L (0.4-2.0) White Blood Count 15.4 K/UL (4.8-10.8) H Red Blood Count 3.21 M/UL (4.20-5.40) L Hemoglobin 11.2 G/DL (12.0-16.0) L Hematocrit 33.1 % (37.0-47.0) L Mean Corpuscular Volume 103 FL (80-99) H Mean Corpuscular Hemoglobin 34.9 PG (27.0-31.0) H Mean Corpuscular Hemoglobin Concent 33.9 G/DL (32.0-36.0) Red Cell Distribution Width 12.6 % (11.6-14.8) Platelet Count 201 K/UL (150-450) Mean Platelet Volume 6.7 FL (6.5-10.1) Neutrophils (%) (Auto) % (45.0-75.0) Lymphocytes (%) (Auto) % (20.0-45.0) Monocytes (%) (Auto) % (1.0-10.0) Eosinophils (%) (Auto) % (0.0-3.0) Basophils (%) (Auto) % (0.0-2.0) Sodium Level 136 MMOL/L (136-145) # Potassium Level 3.5 MMOL/L (3.5-5.1) Chloride Level 105 MMOL/L (98-107) Carbon Dioxide Level 20 MMOL/L (21-32) L Anion Gap 11 mmol/L (5-15) Blood Urea Nitrogen 18 mg/dL (7-18) Creatinine 2.0 MG/DL (0.55-1.30) H Estimat Glomerular Filtration Rate 25.6 mL/min (>60) Glucose Level 112 MG/DL (74-106) H Calcium Level 7.6 MG/DL (8.5-10.1) L Phosphorus Level 2.3 MG/DL (2.5-4.9) L Magnesium Level 1.8 MG/DL (1.8-2.4) Total Bilirubin 0.2 MG/DL (0.2-1.0) Aspartate Amino Transf (AST/SGOT) 34 U/L (15-37) Alanine Aminotransferase (ALT/SGPT) 9 U/L (12-78) L Alkaline Phosphatase 55 U/L (46-116) Total Protein 5.0 G/DL (6.4-8.2) L Albumin 1.3 G/DL (3.4-5.0) L Globulin 3.7 g/dL Albumin/Globulin Ratio 0.4 (1.0-2.7) L Arterial Blood pH 7.370 (7.350-7.450) Arterial Blood Partial Pressure CO2 33.2 mmHg (35.0-45.0) L Arterial Blood Partial Pressure O2 74.9 mmHg (75.0-100.0) L Arterial Blood HCO3 18.8 mmol/L (22.0-26.0) L Arterial Blood Oxygen Saturation 94.5 % (95-100) L Arterial Blood Base Excess -5.7 (-2-2) L Jonathan Test Positive Elayne Allred MD Jun 05, 2020 11:27
--- NOTE | 2020-06-05 11:30 | NUR ---
NURSE NOTES: Dr. Allred here- seen patient - made aware of low BP, Levophed drip at 30 mcg/mi at this time - with new order given
--- NOTE | 2020-06-05 12:19 | NUR ---
NURSE NOTES: Pt turned and repositioned for skin management.Levophed increase to 30mcg/hr due to SBP below the 60's. Seen by Dr Allred, made aware oxygen saturation and oxygen on ABG, no new orders.Will continue close monitoring.Also charge nurse spoke with legal guardian for PICC line consent.As stated she does not give telephone consent and requested consent to be faxed.Consent faxed and awaiting for feedback.
--- NOTE | 2020-06-05 12:20 | Infectious Diseases Prog Note ---
Assessment/Plan ASSESSMENT: sp code blue 06/03 Septic Shock Fever Leukocytosis; improving -06/03 u/a no pyuria Pneumonia.- COVID 19 neg x3 Acute hypoxic resp filure on VM> NRB 15l 100%; hypoxic on ABG> now VDRF 06/03 - Fio2 80% >100% -06/03 sp cx normal resp marie -06/02 CXR: Increased atelectasis of the right lung, since prior exam of 3 days earlier. New or increased right pleural effusion. Increased left basilar consolidation and/or pleural fluid -COVID Rapid PCR neg 05/31, 05/31, 06/03 -05/30 spc x Group G strep -05/30 CXR: Reduced lung volumes. Patchy bilateral predominantly interstitial pulmonary opacities. Could be from edema and/or pneumonia. There is a broader differential. Persistent, high grade bacteremia- r/o endocarditis -05/30 Bcx 4/4 sets S. haemolyticus; 05/31 Bcx 3/4 S/ epi; 06/03 Bcx NTD -2d echo: no vegetaions seen R/o probable UTI ua/ wbc 10-15, nit neg, leuk +1; ucx Neg LEANN; worsening -supratherapeutic vanco levels -Seizure disorder. - Hypothyroidism. - Down syndrome. History of PEG tube placement. [place] resident PLAN: 1. empiric Daptomycin #4 (abx d #7) for GPC bacteremia in view of LEANN Meropenem#3 (abx d #7) given resp decompensation add empiric Micafungin #2 Azithromycin #7/7 06/03 SP Ceftriaxone #2 06/02 SP IV Vancomycin #4, Zosyn #4 -05/30 SP Cefepime x1, Flagyl x1 2. Monitor CBC. 3. Monitor BMP. 4. Cocci ab, CrAg 5.f/u Repeat cx 6. COVID neg x3; will continue isolation for now given ongoing hypoxia and fever 7. Monitor chest x-ray. 8. Monitor the patient's clinical course and labs. Based on those, we will do further recommendation. Thank you, Dr. Allred, for allowing me to participate in the care of this patient. I will follow the patient with you at this hospitalization. Discussed with RN. Subjective Allergies: Coded Allergies: No Known Allergies (Unverified , 10/16/18) Tm 100.5 FIo2 on 100% wbc improving latest Bcx NTD maxed on levophed Objective Last 24 Hour Vital Signs Date Time Temp Pulse Resp B/P (MAP) Pulse Ox O2 Delivery O2 Flow Rate FiO2 06/05/20 11:46 56/22 06/05/20 10:00 68 22 97/47 (64) 98 06/05/20 09:30 73 21 98/51 (67) 98 06/05/20 09:00 73 22 94/53 (67) 97 06/05/20 08:30 70 20 92/47 (62) 96 06/05/20 08:00 81 06/05/20 08:00 Endotracheal Tube 06/05/20 08:00 74 22 108/66 (80) 100 06/05/20 08:00 100 06/05/20 07:30 100.5 66 20 108/49 (68) 94 06/05/20 07:25 62 20 100 06/05/20 07:00 101/45 06/05/20 07:00 63 20 101/45 (63) 92 06/05/20 06:30 63 20 100/42 (61) 95 06/05/20 06:00 98/39 06/05/20 06:00 70 20 98/39 (58) 94 06/05/20 05:30 73 21 107/52 (70) 92 06/05/20 05:20 70 06/05/20 05:14 67 20 70 06/05/20 05:03 96/46 06/05/20 05:02 96/43 06/05/20 05:00 96/43 06/05/20 05:00 66 20 96/43 (60) 88 06/05/20 04:30 67 20 94/43 (60) 92 06/05/20 04:00 104/41 06/05/20 04:00 98.8 71 20 104/41 (62) 91 06/05/20 04:00 Endotracheal Tube 06/05/20 04:00 60 06/05/20 03:31 68 20 60 06/05/20 03:30 68 20 107/55 (72) 97 06/05/20 03:15 69 06/05/20 03:00 99/40 06/05/20 03:00 72 20 99/40 (59) 89 06/05/20 02:30 72 19 104/41 (62) 90 06/05/20 02:00 98/46 06/05/20 02:00 72 21 98/46 (63) 92 06/05/20 01:39 68 20 60 06/05/20 01:30 67 20 93/39 (57) 93 06/05/20 01:00 71 20 108/49 (68) 97 06/05/20 01:00 108/49 06/05/20 00:30 65 20 106/51 (69) 95 06/05/20 00:00 Endotracheal Tube 06/05/20 00:00 99.1 69 20 104/40 (61) 94 06/05/20 00:00 104/40 06/05/20 00:00 60 06/04/20 23:32 74 20 60 06/04/20 23:30 68 20 109/52 (71) 93 06/04/20 23:22 62 19 129/59 (82) 93 06/04/20 23:17 94/38 06/04/20 23:16 94/38 06/04/20 23:15 71 06/04/20 23:15 71 20 64/35 (45) 87 06/04/20 23:00 98/42 06/04/20 23:00 66 20 98/42 (60) 89 06/04/20 22:30 66 20 98/44 (62) 91 06/04/20 22:00 65 20 90/38 (55) 93 06/04/20 22:00 90/38 06/04/20 21:30 75 21 104/46 (65) 97 06/04/20 21:21 71 20 60 06/04/20 21:00 78 22 98/61 (73) 99 06/04/20 21:00 103/55 06/04/20 20:30 80 19 100/85 (90) 99 06/04/20 20:00 Endotracheal Tube 06/04/20 20:00 60 06/04/20 20:00 93/38 06/04/20 20:00 99.0 62 20 93/38 (56) 97 06/04/20 19:30 59 20 98/46 (63) 98 06/04/20 19:28 61 20 60 06/04/20 19:21 61 06/04/20 19:00 61 20 97/41 (59) 94 06/04/20 19:00 98/37 06/04/20 18:30 61 20 98/37 (57) 93 06/04/20 18:00 104/42 06/04/20 18:00 60 20 104/42 (62) 94 06/04/20 17:49 102/42 06/04/20 17:30 58 20 101/46 (64) 96 06/04/20 17:00 103/49 06/04/20 17:00 58 20 103/49 (67) 100 06/04/20 16:43 70 20 60 06/04/20 16:30 98.5 58 20 81/48 (59) 99 06/04/20 16:00 Endotracheal Tube 06/04/20 16:00 61 06/04/20 16:00 114/46 06/04/20 16:00 55 20 123/86 (98) 94 06/04/20 16:00 60 06/04/20 15:30 58 20 112/49 (70) 91 06/04/20 15:00 113/62 06/04/20 15:00 65 20 113/62 (79) 99 06/04/20 14:50 59 20 50 06/04/20 14:30 60 20 120/55 (76) 98 06/04/20 14:00 116/59 06/04/20 14:00 62 20 116/58 (77) 100 06/04/20 13:30 65 15 113/47 (69) 100 06/04/20 13:15 64 20 70 06/04/20 13:00 116/46 06/04/20 13:00 60 20 116/46 (69) 96 60 06/04/20 12:45 57 20 110/47 (68) 96 06/04/20 12:30 99.5 58 20 102/48 (66) 95 Height (Feet): 5 Height (Inches): 3.00 Weight (Pounds): 149 HEENT: No pale conjunctivae. No icterus. ETT in place NECK: No lymphadenopathy. CHEST: Coarse breathing sounds. HEART: S1 and S2. ABDOMEN: Soft. PEG tube in place. EXTREMITIES: No cyanosis at this time . Microbiology Date/Time Source Procedure Growth Status 06/03/20 04:50 Blood Blood Culture - Preliminary NO GROWTH AFTER 24 HOURS Resulted 06/03/20 04:45 Blood Blood Culture - Preliminary NO GROWTH AFTER 24 HOURS Resulted 06/03/20 13:30 Nasal Nares MRSA Culture - Final NO METHICILLIN RESISTANT STAPH AUREUS... Complete 06/03/20 13:30 Sputum Expectorated Gram Stain - Final Complete 06/03/20 13:30 Sputum Expectorated Sputum Culture - Final NORMAL UPPER RESPIRATORY MARIE PRESENT Complete 06/03/20 13:20 Nasopharynx SARS-CoV-2 RdRp Gene Assay - Final Complete Laboratory Tests Test 06/04/20 15:20 06/05/20 04:05 06/05/20 08:10 Lactic Acid Level 2.50 mmol/L (0.4-2.0) H 1.90 mmol/L (0.4-2.0) White Blood Count 15.4 K/UL (4.8-10.8) H Red Blood Count 3.21 M/UL (4.20-5.40) L Hemoglobin 11.2 G/DL (12.0-16.0) L Hematocrit 33.1 % (37.0-47.0) L Mean Corpuscular Volume 103 FL (80-99) H Mean Corpuscular Hemoglobin 34.9 PG (27.0-31.0) H Mean Corpuscular Hemoglobin Concent 33.9 G/DL (32.0-36.0) Red Cell Distribution Width 12.6 % (11.6-14.8) Platelet Count 201 K/UL (150-450) Mean Platelet Volume 6.7 FL (6.5-10.1) Neutrophils (%) (Auto) % (45.0-75.0) Lymphocytes (%) (Auto) % (20.0-45.0) Monocytes (%) (Auto) % (1.0-10.0) Eosinophils (%) (Auto) % (0.0-3.0) Basophils (%) (Auto) % (0.0-2.0) Sodium Level 136 MMOL/L (136-145) # Potassium Level 3.5 MMOL/L (3.5-5.1) Chloride Level 105 MMOL/L (98-107) Carbon Dioxide Level 20 MMOL/L (21-32) L Anion Gap 11 mmol/L (5-15) Blood Urea Nitrogen 18 mg/dL (7-18) Creatinine 2.0 MG/DL (0.55-1.30) H Estimat Glomerular Filtration Rate 25.6 mL/min (>60) Glucose Level 112 MG/DL (74-106) H Calcium Level 7.6 MG/DL (8.5-10.1) L Phosphorus Level 2.3 MG/DL (2.5-4.9) L Magnesium Level 1.8 MG/DL (1.8-2.4) Total Bilirubin 0.2 MG/DL (0.2-1.0) Aspartate Amino Transf (AST/SGOT) 34 U/L (15-37) Alanine Aminotransferase (ALT/SGPT) 9 U/L (12-78) L Alkaline Phosphatase 55 U/L (46-116) Total Protein 5.0 G/DL (6.4-8.2) L Albumin 1.3 G/DL (3.4-5.0) L Globulin 3.7 g/dL Albumin/Globulin Ratio 0.4 (1.0-2.7) L Arterial Blood pH 7.370 (7.350-7.450) Arterial Blood Partial Pressure CO2 33.2 mmHg (35.0-45.0) L Arterial Blood Partial Pressure O2 74.9 mmHg (75.0-100.0) L Arterial Blood HCO3 18.8 mmol/L (22.0-26.0) L Arterial Blood Oxygen Saturation 94.5 % (95-100) L Arterial Blood Base Excess -5.7 (-2-2) L Jonathan Test Positive Current Medications Medications (Trade) Dose Ordered Sig/Katy Route PRN Reason Start Time Stop Time Status Last Admin Dose Admin Acetaminophen (Tylenol) 650 mg Q4H PRN GT FEVER 06/03/20 11:45 07/03/20 11:44 06/05/20 10:31 Azithromycin 500 mg/Dextrose 275 ml @ 275 mls/hr Q24HRS IV 06/03/20 14:00 06/06/20 14:59 06/04/20 14:12 Chlorhexidine Gluconate (Alla-Hex 2%) 1 applic DAILY@2000 TOPIC 06/03/20 20:00 09/01/20 19:59 06/04/20 20:19 Daptomycin 350 mg/ Sodium Chloride 55 ml @ 100 mls/hr Q48H IV 06/05/20 11:00 06/09/20 10:59 06/05/20 10:31 Dextrose (Dextrose 50%) 25 ml Q30M PRN IV Hypoglycemia 06/03/20 11:30 08/28/20 11:29 Dextrose (Dextrose 50%) 50 ml Q30M PRN IV Hypoglycemia 06/03/20 11:30 08/28/20 11:29 Heparin Sodium (Porcine) (Heparin 5000 units/ml) 5,000 units EVERY 12 HOURS SUBQ 06/03/20 21:00 07/14/20 20:59 06/05/20 09:12 Heparin Sodium/ Sodium Chloride (Heparin 1000 units/500ml Premix) 1,000 unit ONCE PRN IV radiology 06/03/20 16:15 06/05/20 18:00 Levothyroxine Sodium (Synthroid) 75 mcg DAILY GT 06/04/20 09:00 06/30/20 08:59 06/05/20 09:11 Lidocaine HCl (Xylocaine 1% 30ml) 30 ml ONCE PRN INJ radioloty 06/03/20 16:15 06/05/20 18:00 Meropenem 1 gm/ Sodium Chloride 55 ml @ 110 mls/hr Q12H IVPB 06/03/20 16:00 06/08/20 15:59 06/05/20 04:07 Micafungin Sodium 100 mg/Sodium Chloride 110 ml @ 110 mls/hr Q24H IVPB 06/04/20 14:00 06/11/20 13:59 06/04/20 14:12 Midodrine (Pro-Amatine) 10 mg Q8HR GT 06/05/20 14:00 09/03/20 13:59 Norepinephrine Bitartrate 8 mg/ Dextrose 558 ml @ 0 mls/hr Q24H IV 06/04/20 09:00 07/04/20 08:59 06/05/20 11:46 Ondansetron HCl (Zofran) 4 mg Q6H PRN IVP Nausea & Vomiting 06/03/20 12:00 06/29/20 11:59 Pantoprazole (Protonix) 40 mg DAILY IV 06/04/20 09:00 06/30/20 08:59 06/05/20 09:11 Polyethylene Glycol (Miralax) 17 gm DAILYPRN PRN GT Constipation 06/03/20 12:00 06/29/20 11:59 Potassium Phosphate 20 mm/ Sodium Chloride 281.6667 ml @ 46.944 m... ONCE ONCE IV 06/05/20 09:00 06/05/20 14:59 06/05/20 09:13 Sodium Chloride 1,000 ml @ 100 mls/hr Q10H IV 06/03/20 23:00 07/03/20 22:59 06/05/20 04:08 Sodium Chloride 1,000 ml @ 999 mls/hr Q1H1M IV 06/05/20 12:15 06/05/20 13:15 Temazepam (Restoril) 15 mg HSPRN PRN GT Insomnia 06/03/20 21:00 06/06/20 20:59 Valproic Acid (Depakene) 500 mg EVERY 8 HOURS GT 06/03/20 14:00 06/29/20 21:59 06/05/20 05:03 Suki Camejo M.D. Jun 05, 2020 12:20
[2020-06-05] MEDS ORDERED: NS 275ml ONE (12:32)
[2020-06-05] MEDS ORDERED: D5W 275ml ONE (12:32)
--- NOTE | 2020-06-05 12:50 | Internal Med Progress Note ---
Subjective Date of Service: Jun 05, 2020 Physician Name Joni Copeland Attending Physician Elayne Allred MD Current Medications Medications (Trade) Dose Ordered Sig/Katy Route PRN Reason Start Time Stop Time Status Last Admin Dose Admin Acetaminophen (Tylenol) 650 mg Q4H PRN GT FEVER 06/03/20 11:45 07/03/20 11:44 06/05/20 10:31 Azithromycin 500 mg/Dextrose 275 ml @ 275 mls/hr Q24HRS IV 06/03/20 14:00 06/06/20 14:59 06/04/20 14:12 Chlorhexidine Gluconate (Alla-Hex 2%) 1 applic DAILY@2000 TOPIC 06/03/20 20:00 09/01/20 19:59 06/04/20 20:19 Daptomycin 350 mg/ Sodium Chloride 55 ml @ 100 mls/hr Q48H IV 06/05/20 11:00 06/09/20 10:59 06/05/20 10:31 Dextrose (Dextrose 50%) 25 ml Q30M PRN IV Hypoglycemia 06/03/20 11:30 08/28/20 11:29 Dextrose (Dextrose 50%) 50 ml Q30M PRN IV Hypoglycemia 06/03/20 11:30 08/28/20 11:29 Heparin Sodium (Porcine) (Heparin 5000 units/ml) 5,000 units EVERY 12 HOURS SUBQ 06/03/20 21:00 07/14/20 20:59 06/05/20 09:12 Heparin Sodium/ Sodium Chloride (Heparin 1000 units/500ml Premix) 1,000 unit ONCE PRN IV radiology 06/03/20 16:15 06/05/20 18:00 Levothyroxine Sodium (Synthroid) 75 mcg DAILY GT 06/04/20 09:00 06/30/20 08:59 06/05/20 09:11 Lidocaine HCl (Xylocaine 1% 30ml) 30 ml ONCE PRN INJ radioloty 06/03/20 16:15 06/05/20 18:00 Meropenem 1 gm/ Sodium Chloride 55 ml @ 110 mls/hr Q12H IVPB 06/03/20 16:00 06/08/20 15:59 06/05/20 04:07 Micafungin Sodium 100 mg/Sodium Chloride 110 ml @ 110 mls/hr Q24H IVPB 06/04/20 14:00 06/11/20 13:59 06/04/20 14:12 Midodrine (Pro-Amatine) 10 mg Q8HR GT 06/05/20 14:00 09/03/20 13:59 Norepinephrine Bitartrate 8 mg/ Dextrose 558 ml @ 0 mls/hr Q24H IV 06/04/20 09:00 07/04/20 08:59 06/05/20 11:46 Ondansetron HCl (Zofran) 4 mg Q6H PRN IVP Nausea & Vomiting 06/03/20 12:00 06/29/20 11:59 Pantoprazole (Protonix) 40 mg DAILY IV 06/04/20 09:00 06/30/20 08:59 06/05/20 09:11 Polyethylene Glycol (Miralax) 17 gm DAILYPRN PRN GT Constipation 06/03/20 12:00 06/29/20 11:59 Potassium Phosphate 20 mm/ Sodium Chloride 281.6667 ml @ 46.944 m... ONCE ONCE IV 06/05/20 09:00 06/05/20 14:59 06/05/20 09:13 Sodium Chloride 1,000 ml @ 100 mls/hr Q10H IV 06/03/20 23:00 07/03/20 22:59 06/05/20 04:08 Sodium Chloride 1,000 ml @ 999 mls/hr Q1H1M IV 06/05/20 12:15 06/05/20 13:15 06/05/20 12:40 Temazepam (Restoril) 15 mg HSPRN PRN GT Insomnia 06/03/20 21:00 06/06/20 20:59 Valproic Acid (Depakene) 500 mg EVERY 8 HOURS GT 06/03/20 14:00 06/29/20 21:59 06/05/20 05:03 Allergies: Coded Allergies: No Known Allergies (Unverified , 10/16/18) ROS Limited/Unobtainable: Yes Subjective 59 YO F with Down's syndrome admitted with hypoxia. Now sepsis and pneumonia. Cover for Int Arturo-DR Hawk. ICU. Intubated and sedated Objective Last Vital Signs Date Time Temp Pulse Resp B/P (MAP) Pulse Ox O2 Delivery O2 Flow Rate FiO2 06/05/20 12:00 52 06/05/20 12:00 20 115/51 (72) 100 06/05/20 12:00 100 06/05/20 12:00 Endotracheal Tube 06/05/20 11:01 100.0 06/04/20 00:00 15.0 Laboratory Tests Test 06/04/20 15:20 06/05/20 04:05 06/05/20 08:10 Lactic Acid Level 2.50 mmol/L (0.4-2.0) H 1.90 mmol/L (0.4-2.0) White Blood Count 15.4 K/UL (4.8-10.8) H Red Blood Count 3.21 M/UL (4.20-5.40) L Hemoglobin 11.2 G/DL (12.0-16.0) L Hematocrit 33.1 % (37.0-47.0) L Mean Corpuscular Volume 103 FL (80-99) H Mean Corpuscular Hemoglobin 34.9 PG (27.0-31.0) H Mean Corpuscular Hemoglobin Concent 33.9 G/DL (32.0-36.0) Red Cell Distribution Width 12.6 % (11.6-14.8) Platelet Count 201 K/UL (150-450) Mean Platelet Volume 6.7 FL (6.5-10.1) Neutrophils (%) (Auto) % (45.0-75.0) Lymphocytes (%) (Auto) % (20.0-45.0) Monocytes (%) (Auto) % (1.0-10.0) Eosinophils (%) (Auto) % (0.0-3.0) Basophils (%) (Auto) % (0.0-2.0) Sodium Level 136 MMOL/L (136-145) # Potassium Level 3.5 MMOL/L (3.5-5.1) Chloride Level 105 MMOL/L (98-107) Carbon Dioxide Level 20 MMOL/L (21-32) L Anion Gap 11 mmol/L (5-15) Blood Urea Nitrogen 18 mg/dL (7-18) Creatinine 2.0 MG/DL (0.55-1.30) H Estimat Glomerular Filtration Rate 25.6 mL/min (>60) Glucose Level 112 MG/DL (74-106) H Calcium Level 7.6 MG/DL (8.5-10.1) L Phosphorus Level 2.3 MG/DL (2.5-4.9) L Magnesium Level 1.8 MG/DL (1.8-2.4) Total Bilirubin 0.2 MG/DL (0.2-1.0) Aspartate Amino Transf (AST/SGOT) 34 U/L (15-37) Alanine Aminotransferase (ALT/SGPT) 9 U/L (12-78) L Alkaline Phosphatase 55 U/L (46-116) Total Protein 5.0 G/DL (6.4-8.2) L Albumin 1.3 G/DL (3.4-5.0) L Globulin 3.7 g/dL Albumin/Globulin Ratio 0.4 (1.0-2.7) L Arterial Blood pH 7.370 (7.350-7.450) Arterial Blood Partial Pressure CO2 33.2 mmHg (35.0-45.0) L Arterial Blood Partial Pressure O2 74.9 mmHg (75.0-100.0) L Arterial Blood HCO3 18.8 mmol/L (22.0-26.0) L Arterial Blood Oxygen Saturation 94.5 % (95-100) L Arterial Blood Base Excess -5.7 (-2-2) L Jonathan Test Positive Microbiology Date/Time Source Procedure Growth Status 06/03/20 04:50 Blood Blood Culture - Preliminary NO GROWTH AFTER 24 HOURS Resulted 06/03/20 04:45 Blood Blood Culture - Preliminary NO GROWTH AFTER 24 HOURS Resulted 06/03/20 13:30 Nasal Nares MRSA Culture - Final NO METHICILLIN RESISTANT STAPH AUREUS... Complete 06/03/20 13:30 Sputum Expectorated Gram Stain - Final Complete 06/03/20 13:30 Sputum Expectorated Sputum Culture - Final NORMAL UPPER RESPIRATORY MARIA A PRESENT Complete 06/03/20 13:20 Nasopharynx SARS-CoV-2 RdRp Gene Assay - Final Complete Intake and Output 06/04/20 06/05/20 19:00 07:00 Intake Total 3216.13 ml 2722.856 ml Output Total 175 ml 845 ml Balance 3041.13 ml 1877.856 ml Free Water 90 ml IV Total 3156.13 ml 2352.856 ml Tube Feeding 60 ml 280 ml Output Urine Total 175 ml 845 ml # Bowel Movements 1 Objective General Appearance: WD/WN, no apparent distress, alert EENT: PERRL/EOMI, normal ENT inspection Neck: non-tender, normal alignment, supple, normal inspection Cardiovascular: normal peripheral pulses, normal rate, regular rhythm, no gallop/murmur, no JVD Respiratory/Chest: [facility] vent; decreased breath sounds, crackles/rales, rhonchi - bilaterally, expiratory wheezing Abdomen: normal bowel sounds, non tender, soft, no organomegaly, no mass Extremities: normal range of motion Neurologic: service order dispatcher II-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 Continue daptomycin per ID=Dr Camejo. Pulmonary/Critical care=DR Allred. COVID NEG (2) Sepsis Assessment & Plan: Staph haemolyticus. Continue daptomycin and ceftriaxone per ID=Dr Caemjo (3) Down's syndrome (4) Dysphagia Assessment & Plan: S/P PEG (5) Seizure disorder Assessment & Plan: Continue keppra and depakote (6) Hypothyroidism Assessment & Plan: Continue synthroid (7) Acute respiratory failure Assessment & Plan: Pulmonary = Dr Allred; [facility] vent Joni Copeland MD Jun 05, 2020 12:50
[2020-06-05] MEDS: Micafungin 100 MG in NS 110 ML IVPB SCH (13:36)
[2020-06-05] MEDS: Azithromycin 500 MG in D5W 275 ML IV SCH (13:36)
[2020-06-05] MEDS: Midodrine 10mg tab GT SCH ×2 (13:37→22:38)
--- NOTE | 2020-06-05 14:05 | NUR ---
NURSE NOTES: ADLs done, mouth care performed and suctioned as tolerated.HOB elevated to prevent aspiration.No apparent acute distress, no significant change.Will continue close monitoring.Call light within easy reach.
--- NOTE | 2020-06-05 16:01 | NUR ---
NURSE NOTES: Patient asleep, no apparent distress.Continue to titrate Levophed as tolerated.ADLs done, mouth care performed and suctioned as tolerated.Turned and repositioned.HOB elevated to prevent aspiration.Tolerate well feeding. Call light within easy reach.Will continue close monitoring.
--- NOTE | 2020-06-05 16:21 | Diagnostic Imaging Report ---
Indication: Dyspnea Technique: One view of the chest Comparison: 06/04/2020 Findings: There is increasing dense consolidation in the left upper lobe. Diffuse extensive infiltrates elsewhere persist, unchanged. There is pleural fluid on the right, likely increased although this area was not well imaged on the previous exam Impression: Increasing left upper lobe dense consolidation and likely increasing bilateral pleural fluid. Persistent diffuse dense consolidation elsewhere
--- NOTE | 2020-06-05 18:10 | NUR ---
NURSE NOTES: ADLs done,turned and repositioned.GT feeding held due to residual 105cc. Will continue close monitoring.HOB elevated to prevent aspiration.No significant change at this time.Will continue close monitoring.
--- NOTE | 2020-06-05 18:15 | NUR ---
HAND-OFF: Report given to TAI Marvin.
--- NOTE | 2020-06-05 19:29 | NUR ---
HAND-OFF: Report given to TAI Marvin.
--- NOTE | 2020-06-05 19:30 | NUR ---
NURSE NOTES: Received report from TAI Weston. patient in bed resting, responsive to verbal and tactile stimuli. Orally intubated 7.02/28 AC 20 VT 500 FiO2 100 satting 100%.On GT feeding Jevity 1.2 at 30cc held GT feeding due to residual of 200cc. HOB elevated. Left femoral TLC running Levophed at 22mcg/hr and NS at 100 cc/hr.Gregorio catheter in place draining clear yellow urine with no apparent sediment.Patient turned and repositioned for comfort. contact isolation and seizure precaution maintained and observed. no s/s of hypo/hyperglycemia. Bed alarm on. bed locked and in low position. Call light within easy reach.Will continue to monitor plan of care.
--- NOTE | 2020-06-05 19:59 | NUR ---
NURSE NOTES: Called regarding patient with 200cc residual from GT. will follow up. HOB elevated.
--- NOTE | 2020-06-05 20:27 | NUR ---
NURSE NOTES: Called Dr. Hawk regarding patient with 200cc gt residual, Dr. Hawk gave order noted and carried out.
[2020-06-05] MEDS: Dyna-Hex 2% Top Sol 2oz TOPIC SCH (20:53)
[2020-06-05] MEDS: Metoclopramide 10mg/2ml Inj IVP SCH (20:53)
--- NOTE | 2020-06-05 21:00 | NUR ---
NURSE NOTES: Reglan 5mg IVP given, rechecked with 100cc residual. HOB elevated. will monitor patient.
--- NOTE | 2020-06-05 23:00 | NUR ---
NURSE NOTES: patient in bed awake, no s/s of acute distress noted. HOB elevated. with 15cc gt residual. continue on Levophed drip at 28mcg/min BP 112/45. no s/s of hypo/hyperglycemia. skin warm and dry to touch. will continue plan of care.
[2020-06-06] VITALS (75 sets, daily range): BP systolic 55–154; BP diastolic 29–112
--- NOTE | 2020-06-06 01:00 | NUR ---
NURSE NOTES: Bed bath given tolerated well. no s/s of acute distress noted. Started Jevity 1.2 at 10cc/hr no residual. continue on Levophed drip at 28mcg/min BP 119/40 HR 70. no s/s of hypo/hyperglycemia. skin warm and dry to touch. will continue plan of care.
[2020-06-06] MEDS: Metoclopramide 10mg/2ml Inj IVP SCH ×2 (01:49→08:50)
--- NOTE | 2020-06-06 03:00 | NUR ---
NURSE NOTES: patient in bed sleeping. no s/s of acute distress noted. on Jevity 1.2 at 10cc/hr via GT no residual. continue on Levophed drip at 28mcg/min BP 116/49 HR 70. no s/s of hypo/hyperglycemia. skin warm and dry to touch. will continue plan of care.
[2020-06-06] MEDS: Norepinephrine Bitartrate 8 MG in D5W 500ml 550 ML IV SCH ×5 (03:27→23:34)
[2020-06-06] MEDS: Meropenem 1 GM in NS 55 ML IVPB SCH ×2 (03:27→16:10)
--- NOTE | 2020-06-06 05:00 | NUR ---
NURSE NOTES: Patient on fi02 100% satting 100%. no s/s of acute distress noted. Started Jevity 1.2 at 20cc/hr no residual. continue on Levophed drip at 28mcg/min BP 109/42 HR 64. no s/s of hypo/hyperglycemia. skin warm and dry to touch. will continue plan of care.
[2020-06-06] MEDS: Valproic Acid 250mg/5ml Liquid GT SCH ×3 (05:16→21:32)
[2020-06-06] MEDS: Midodrine 10mg tab GT SCH ×3 (05:16→21:32)
[2020-06-06 05:39] LABS: HEMATOCRIT 32.4 % (37.0-47.0); HEMOGLOBIN 10.7 G/DL (12.0-16.0); MEAN CORPUSCULAR VOLUME 104 FL (80-99); PLATELET COUNT 174 K/UL (150-450); RED BLOOD COUNT 3.13 M/UL (4.20-5.40); RED CELL DISTRIBUTION WIDTH 13.2 % (11.6-14.8); WHITE BLOOD COUNT 19.4 K/UL (4.8-10.8)
[2020-06-06 06:11] LABS: ALANINE AMINOTRANSFERASE 16 U/L (12-78); ALBUMIN 1.5 G/DL (3.4-5.0); ALBUMIN/GLOBULIN RATIO 0.5 (1.0-2.7); ALKALINE PHOSPHATASE 60 U/L (46-116); ANION GAP 9 mmol/L (5-15); ASPARTATE AMINO TRANSFERASE 32 U/L (15-37); BILIRUBIN,TOTAL 0.2 MG/DL (0.2-1.0); BLOOD UREA NITROGEN 16 mg/dL (7-18); CALCIUM 7.1 MG/DL (8.5-10.1); CARBON DIOXIDE 20 MMOL/L (21-32); CHLORIDE 107 MMOL/L (98-107); CREATININE 1.9 MG/DL (0.55-1.30); PHOSPHORUS 3.3 MG/DL (2.5-4.9); POTASSIUM 3.2 MMOL/L (3.5-5.1); SODIUM 136 MMOL/L (136-145)
--- NOTE | 2020-06-06 06:30 | NUR ---
NURSE NOTES: patient temp 99.5 axillary cooling measure provided. will continue to monitor patient.
--- NOTE | 2020-06-06 07:25 | NUR ---
HAND-OFF: Report given to Mary LUJAN.
--- NOTE | 2020-06-06 07:26 | NUR ---
NURSE NOTES: Pt received from TAI Marvin. Pt opens eyes spontaneously; does not follow commands; withdraws to pain; bilat pupils equal and round 3 mm with sluggish rxn to light. Pt is SR to cardiac cath lab manager with 2+ radial pulses and 1+ dorsalis pedis pulses present. Cap refill noted 4 sec, mottling noted to extremities. Pt is afebrile at this time. Pt is mechanically ventilated with 7.5 ETT noted 22 cm at the lip with the following settings: AC 20 TV 500 FiO2 100% Peep 5- bilat upper lung sounds noted with crackles and lower lung lobes diminished upon auscultation. SpO2 noted 99-100% - will begin to titrate down FiO2. Abd is round, and slightly distended+firm to palpation with hypoactive bowel sounds to all quadrants. GT site noted with small amount of green/yellow exudate currently running Jevity 1.2 at 20 cc/hr with 5 cc gastric residuals noted at this time. Willl f/u with ID. F/C noted draining pale, yellow urine. Skin alterations noted. Pt has a left femoral TLC with dry and intact dressing running NS at 100 cc/hr and Levophed at 28 mcg/min. BP noted 115/90 mmHg. Will begin to titrate down levo as tolerated. Bed in lowest position, alarm on, side rails up x 2 and padded per seizure precaution, call light within reach. Will continue to monitor.
--- NOTE | 2020-06-06 07:30 | NUR ---
NURSE NOTES: Received report from TAI Hernandez. Pt opens eyes spontaneously; does not follow commands; withdraws to pain. Pt is Afebrile, and ST on monitor worker Intubated on 06/04 with 7.5 ETT noted 22 cm at the lip line. Settings: AC/VC30 TV 500 FiO2 100% Peep 5 G-Tube noted, CDI. Jevity 1.2 at 20 cc/hr HOLD for unstable condition per AMRN. Gregorio noted draining pale, yellow urine. Skin alterations noted on pt's toe bilaterally. Pt has a left femoral TLC, CDI Running NS at 100 cc/hr and Levophed at 30 mcg/min. Safe measures observed. Side rails up x 2 and padded per seizure precaution. No acute distress noted. Will continue to monitor. Addendum: 06/07/20 at 0549 by Sowmya Andrea RN This is 0 note
--- NOTE | 2020-06-06 07:50 | NUR ---
RESPIRATORY NOTE: Patient received mechanically ventilated on PB 840 with current ordered vent settings. Patient is orally intubated with an ETT tube size 7.5 with 22cm at the lip line that is secured with commercial holster. Vent alarms are functional and audible. There is an ambu bag with filter available at the bedside and the vent is connected to a red outlet. Will continue to monitor.
--- NOTE | 2020-06-06 08:00 | NUR ---
NURSE NOTES: Pt repositioned, oral care provided, Carla Jj assessing pt at bedside. No distress noted. Pt endotracheally suctioned and positioned with right lung elevated. FiO2 down to 80%. SpO2 noted 98%. Will continue to monitor. Addendum: 06/06/20 at 0836 by Mary Britt RN Late entry: Carla also made aware of brief episodes of bradycardia while pt is asleep per police shift commander RN and that OBS results are positive.
--- NOTE | 2020-06-06 08:22 | NUR ---
NURSE NOTES: Dr Camejo notified of blood cutlure results positive for gram + cocci in [facility]. No new orders received. Addendum: 06/06/20 at 1141 by Mary Britt RN Late entry: Carla Jj also made aware that pt's labial folds are erythematous and indurated - she states continue to apply the phytoplex antifungal cream. Cream applied per order.
--- NOTE | 2020-06-06 08:26 | Infectious Diseases Prog Note ---
Assessment/Plan ASSESSMENT: sp code blue 06/03 Septic Shock Fever Leukocytosis; improving -06/03 u/a no pyuria Pneumonia.- COVID 19 neg x3 Acute hypoxic resp failure on VM> NRB 15l 100%; hypoxic on ABG> now VDRF 06/03 - Fio2 80% >100% 06/05 CXR: Increasing left upper lobe dense consolidation and likely increasing bilateral pleural fluid. Persistent diffuse dense consolidation elsewhere -06/03 sp cx normal resp marie -06/02 CXR: Increased atelectasis of the right lung, since prior exam of 3 days earlier. New or increased right pleural effusion. Increased left basilar consolidation and/or pleural fluid -COVID Rapid PCR neg 05/31, 05/31, 06/03 -05/30 spc x Group G strep -05/30 CXR: Reduced lung volumes. Patchy bilateral predominantly interstitial pulmonary opacities. Could be from edema and/or pneumonia. There is a broader differential. Persistent, high grade bacteremia- r/o endocarditis -05/30 Bcx 4/4 sets S. haemolyticus; 05/31 Bcx 3/4 S/ epi; 06/03 Bcx NTD -2d echo: no vegetaions seen R/o probable UTI ua/ wbc 10-15, nit neg, leuk +1; ucx Neg LEANN; worsening -supratherapeutic vanco levels -Seizure disorder. - Hypothyroidism. - Down syndrome. History of PEG tube placement. [place] resident PLAN: Start linezolid given persistent GPC bacteremia (double coverage, though not ideal for bacteremia) and pneumonia (dapto doesn't cover for pneumonia) Cont Daptomycin #5 (abx d #8) for GPC bacteremia in view of LEANN [monitor CK, was 51 on 06/03] Cont Meropenem#4 (abx d #8) given resp decompensation Cont Micafungin #3 Repeat BCx given persistent bacteremia CT chest when stable enough, not currently given on FiO2 100% and pressors If pleural effusions, should be tapped to r/o empyema, send for bacterial cx as well as cell count and diff F/u cx of exudate around G-tube Trend GIB (black stools) 06/05 SP Azithromycin #7/7 06/03 SP Ceftriaxone #2 06/02 SP IV Vancomycin #4, Zosyn #4 05/30 SP Cefepime x1, Flagyl x1 2. Monitor CBC. 3. Monitor BMP. 4. Cocci ab, CrAg 5.f/u Repeat cx 6. COVID neg x3; will continue isolation for now given ongoing hypoxia and fever 7. Monitor chest x-ray. 8. Monitor the patient's clinical course and labs. Based on those, we will do further recommendation. Thank you, Dr. Allred, for allowing me to participate in the care of this patient. I will follow the patient with you at this hospitalization. Discussed with RN and Pharmacy Subjective Allergies: Coded Allergies: No Known Allergies (Unverified , 10/16/18) AF x24hrs, improved WBC 19, overall stable from prior though not improving NAD on vent, but remains on FiO2 100% with poor saturation BCx w/ GPCs Swabbed exudate from G-tube given Objective Last 24 Hour Vital Signs Date Time Temp Pulse Resp B/P (MAP) Pulse Ox O2 Delivery O2 Flow Rate FiO2 06/06/20 08:00 98.7 78 21 120/93 (102) 94 06/06/20 08:00 70 06/06/20 07:48 78 22 70 06/06/20 07:45 78 22 90/62 (71) 100 06/06/20 07:30 74 21 115/90 (98) 97 06/06/20 07:15 59 20 117/55 (75) 97 06/06/20 07:00 117/55 06/06/20 07:00 61 20 110/54 (72) 96 06/06/20 06:30 63 20 110/46 (67) 96 06/06/20 06:00 106/54 06/06/20 06:00 62 20 108/52 (70) 96 06/06/20 05:30 64 20 105/50 (68) 95 06/06/20 05:00 65 20 105/48 (67) 94 06/06/20 05:00 109/42 06/06/20 04:36 66 20 100 06/06/20 04:30 66 20 106/50 (68) 93 06/06/20 04:00 99.5 68 20 104/48 (66) 92 06/06/20 04:00 Endotracheal Tube 06/06/20 04:00 111/58 06/06/20 04:00 100 8/29/20 03:58 70 06/06/20 03:45 69 20 105/48 (67) 92 06/06/20 03:30 70 20 104/49 (67) 92 06/06/20 03:27 116/49 06/06/20 03:15 71 21 116/49 (71) 92 06/06/20 03:03 67 22 100 06/06/20 03:00 73 23 113/52 (72) 94 06/06/20 02:45 94 22 111/58 (75) 91 06/06/20 02:30 68 20 107/54 (71) 94 06/06/20 02:15 69 20 104/55 (71) 94 06/06/20 02:00 72 21 104/51 (68) 95 06/06/20 02:00 104/55 06/06/20 01:45 76 26 110/50 (70) 95 06/06/20 01:15 73 22 119/40 (66) 93 06/06/20 01:08 74 21 100 06/06/20 01:00 74 21 118/47 (70) 93 06/06/20 01:00 119/40 06/06/20 00:30 74 23 127/38 (67) 95 06/06/20 00:00 98.4 65 20 122/39 (66) 97 06/06/20 00:00 100 06/06/20 00:00 127/36 06/06/20 00:00 Endotracheal Tube 06/06/20 00:00 77 06/05/20 23:30 71 20 121/41 (67) 98 06/05/20 23:16 71 22 100 06/05/20 23:00 122/45 06/05/20 23:00 71 20 122/45 (70) 99 06/05/20 22:43 119/45 06/05/20 22:30 71 21 119/45 (69) 99 06/05/20 22:00 72 20 115/44 (67) 99 06/05/20 22:00 115/44 06/05/20 21:49 73 20 113/47 (69) 97 06/05/20 21:48 65 20 93/60 (71) 98 06/05/20 21:32 72 20 88/51 (63) 95 06/05/20 21:15 74 23 106/64 (78) 99 06/05/20 21:00 97/82 06/05/20 21:00 75 21 97/82 (87) 100 06/05/20 20:45 70 23 122/45 (70) 99 06/05/20 20:43 70 22 100 06/05/20 20:30 70 21 131/87 (102) 99 06/05/20 20:15 70 23 112/46 (68) 99 06/05/20 20:00 98.8 67 22 112/55 (74) 99 06/05/20 20:00 70 06/05/20 20:00 112/55 06/05/20 20:00 Endotracheal Tube 06/05/20 20:00 100 06/05/20 19:52 66 20 104/49 (67) 100 06/05/20 19:45 71 23 76/52 (60) 99 06/05/20 19:30 67 21 87/57 (67) 99 06/05/20 19:22 70 22 97/45 (62) 99 06/05/20 19:19 68 22 82/49 (60) 99 06/05/20 19:15 73 25 82/58 (66) 99 06/05/20 19:02 72 22 100 06/05/20 19:00 110/68 06/05/20 19:00 72 23 110/68 (82) 99 06/05/20 18:30 88 27 137/109 (118) 94 06/05/20 18:19 79/42 06/05/20 18:15 69 17 77/39 (52) 100 06/05/20 18:00 75 22 79/41 (54) 99 06/05/20 18:00 122/58 06/05/20 17:45 69 22 85/40 (55) 99 06/05/20 17:30 65 22 122/58 (79) 100 06/05/20 17:15 63 19 124/49 (74) 100 06/05/20 17:00 68 26 115/48 (70) 100 06/05/20 17:00 111/52 06/05/20 16:45 71 27 118/56 (76) 100 06/05/20 16:30 68 30 112/56 (74) 100 06/05/20 16:15 67 31 124/57 (79) 100 8/28/20 16:00 99.8 67 31 124/57 (79) 100 06/05/20 16:00 66 06/05/20 16:00 100 06/05/20 16:00 124/57 06/05/20 16:00 Endotracheal Tube 06/05/20 15:45 87 26 122/106 (111) 99 06/05/20 15:30 61 19 123/92 (102) 100 06/05/20 15:15 61 23 120/101 (107) 100 06/05/20 15:12 60 23 100 06/05/20 15:02 73 19 59/41 (47) 99 06/05/20 15:00 72/43 06/05/20 15:00 62 18 72/43 (53) 99 06/05/20 14:45 68 20 108/69 (82) 99 06/05/20 14:30 73 20 70/43 (52) 99 06/05/20 14:15 77 18 124/43 (70) 99 06/05/20 14:00 79 27 114/44 (67) 100 06/05/20 14:00 114/44 06/05/20 13:45 92 27 123/79 (94) 96 06/05/20 13:30 79 23 119/45 (69) 99 06/05/20 13:15 75 19 128/65 (86) 100 06/05/20 13:00 71 19 128/65 (86) 99 06/05/20 13:00 128/65 06/05/20 12:45 52 19 115/47 (69) 100 06/05/20 12:30 53 17 121/48 (72) 100 06/05/20 12:15 100.0 53 18 116/59 (78) 100 06/05/20 12:00 52 06/05/20 12:00 56 20 115/51 (72) 100 06/05/20 12:00 100 06/05/20 12:00 115/51 06/05/20 12:00 Endotracheal Tube 06/05/20 11:46 56/22 06/05/20 11:45 61 21 113/42 (65) 100 06/05/20 11:30 88 18 56/22 (33) 99 06/05/20 11:29 84 20 100 06/05/20 11:17 83 20 60/30 (40) 100 06/05/20 11:15 79 20 64/27 (39) 99 06/05/20 11:01 100.0 06/05/20 11:00 65 20 101/43 (62) 100 06/05/20 11:00 101/43 06/05/20 10:30 59 21 93/53 (66) 98 06/05/20 10:00 97/47 06/05/20 10:00 68 22 97/47 (64) 98 06/05/20 09:30 73 21 98/51 (67) 98 06/05/20 09:00 73 22 94/53 (67) 97 06/05/20 09:00 98/51 06/05/20 08:30 70 20 92/47 (62) 96 Height (Feet): 5 Height (Inches): 3.00 Weight (Pounds): 155 Gen: NAD Pulm: BL chest rise Abd: Non-distended Ext: No c/c/e Skin: No visible skin rashes Microbiology Date/Time Source Procedure Growth Status 06/04/20 16:15 Blood Blood Culture - Preliminary NO GROWTH AFTER 24 HOURS Resulted 06/04/20 16:05 Blood Blood Culture - Preliminary NO GROWTH AFTER 24 HOURS Resulted 06/03/20 13:30 Nasal Nares MRSA Culture - Final NO METHICILLIN RESISTANT STAPH AUREUS... Complete 06/03/20 13:30 Sputum Expectorated Gram Stain - Final Complete 06/03/20 13:30 Sputum Expectorated Sputum Culture - Final NORMAL UPPER RESPIRATORY MARIE PRESENT Complete 06/03/20 13:20 Nasopharynx SARS-CoV-2 RdRp Gene Assay - Final Complete Laboratory Tests Test 06/06/20 04:35 06/06/20 05:00 White Blood Count 19.4 K/UL (4.8-10.8) H Red Blood Count 3.13 M/UL (4.20-5.40) L Hemoglobin 10.7 G/DL (12.0-16.0) L Hematocrit 32.4 % (37.0-47.0) L Mean Corpuscular Volume 104 FL (80-99) H Mean Corpuscular Hemoglobin 34.3 PG (27.0-31.0) H Mean Corpuscular Hemoglobin Concent 33.1 G/DL (32.0-36.0) Red Cell Distribution Width 13.2 % (11.6-14.8) Platelet Count 174 K/UL (150-450) Mean Platelet Volume 6.5 FL (6.5-10.1) Neutrophils (%) (Auto) % (45.0-75.0) Lymphocytes (%) (Auto) % (20.0-45.0) Monocytes (%) (Auto) % (1.0-10.0) Eosinophils (%) (Auto) % (0.0-3.0) Basophils (%) (Auto) % (0.0-2.0) Neutrophils % (Manual) Pending Lymphocytes % (Manual) Pending Platelet Estimate Pending Platelet Morphology Pending Sodium Level 136 MMOL/L (136-145) Potassium Level 3.2 MMOL/L (3.5-5.1) L Chloride Level 107 MMOL/L (98-107) Carbon Dioxide Level 20 MMOL/L (21-32) L Anion Gap 9 mmol/L (5-15) Blood Urea Nitrogen 16 mg/dL (7-18) Creatinine 1.9 MG/DL (0.55-1.30) H Estimat Glomerular Filtration Rate 27.2 mL/min (>60) Glucose Level 106 MG/DL (74-106) Uric Acid 4.0 MG/DL (2.6-7.2) Calcium Level 7.1 MG/DL (8.5-10.1) L Phosphorus Level 3.3 MG/DL (2.5-4.9) Magnesium Level 1.8 MG/DL (1.8-2.4) Total Bilirubin 0.2 MG/DL (0.2-1.0) Aspartate Amino Transf (AST/SGOT) 32 U/L (15-37) Alanine Aminotransferase (ALT/SGPT) 16 U/L (12-78) Alkaline Phosphatase 60 U/L (46-116) C-Reactive Protein, Quantitative 21.8 mg/dL (0.00-0.90) H Pro-B-Type Natriuretic Peptide 64928 pg/mL (0-125) H Total Protein 4.7 G/DL (6.4-8.2) L Albumin 1.5 G/DL (3.4-5.0) L Globulin 3.2 g/dL Albumin/Globulin Ratio 0.5 (1.0-2.7) L Anti-Nuclear Antibody Screen Pending c-ANCA Titer Pending p-ANCA Titer Pending Blastomyces Ab Immunodiffusion Pending Coccidioides Antibody (Comp Fix) Pending Histoplasma Mycelial Antibody Pending Histoplasma Antibody w Mycelial Ag Pending Histoplasma Antibody with Yeast Ag Pending Histoplasma Antigen Pending Current Medications Medications (Trade) Dose Ordered Sig/Katy Route PRN Reason Start Time Stop Time Status Last Admin Dose Admin Acetaminophen (Tylenol) 650 mg Q4H PRN GT FEVER 06/03/20 11:45 07/03/20 11:44 06/05/20 10:31 Azithromycin 500 mg/Dextrose 275 ml @ 275 mls/hr Q24HRS IV 06/03/20 14:00 06/06/20 14:59 06/05/20 13:36 Chlorhexidine Gluconate (Alla-Hex 2%) 1 applic DAILY@2000 TOPIC 06/03/20 20:00 09/01/20 19:59 06/05/20 20:53 Daptomycin 350 mg/ Sodium Chloride 55 ml @ 100 mls/hr Q48H IV 06/05/20 11:00 06/09/20 10:59 06/05/20 10:31 Dextrose (Dextrose 50%) 25 ml Q30M PRN IV Hypoglycemia 06/03/20 11:30 08/28/20 11:29 Dextrose (Dextrose 50%) 50 ml Q30M PRN IV Hypoglycemia 06/03/20 11:30 08/28/20 11:29 Heparin Sodium (Porcine) (Heparin 5000 units/ml) 5,000 units EVERY 12 HOURS SUBQ 06/03/20 21:00 07/14/20 20:59 06/05/20 20:54 Levothyroxine Sodium (Synthroid) 75 mcg DAILY GT 06/04/20 09:00 06/30/20 08:59 06/05/20 09:11 Meropenem 1 gm/ Sodium Chloride 55 ml @ 110 mls/hr Q12H IVPB 06/03/20 16:00 06/08/20 15:59 06/06/20 03:27 Metoclopramide HCl (Reglan) 5 mg Q6H IVP 06/05/20 20:30 07/05/20 20:29 06/06/20 01:49 Micafungin Sodium 100 mg/Sodium Chloride 110 ml @ 110 mls/hr Q24H IVPB 06/04/20 14:00 06/11/20 13:59 06/05/20 13:36 Midodrine (Pro-Amatine) 10 mg Q8HR GT 06/05/20 14:00 09/03/20 13:59 06/06/20 05:16 Norepinephrine Bitartrate 8 mg/ Dextrose 558 ml @ 0 mls/hr Q24H IV 06/04/20 09:00 07/04/20 08:59 06/06/20 03:27 Ondansetron HCl (Zofran) 4 mg Q6H PRN IVP Nausea & Vomiting 06/03/20 12:00 06/29/20 11:59 Pantoprazole (Protonix) 40 mg DAILY IV 06/04/20 09:00 06/30/20 08:59 06/05/20 09:11 Polyethylene Glycol (Miralax) 17 gm DAILYPRN PRN GT Constipation 06/03/20 12:00 06/29/20 11:59 Sodium Chloride 1,000 ml @ 100 mls/hr Q10H IV 06/03/20 23:00 07/03/20 22:59 06/06/20 01:49 Temazepam (Restoril) 15 mg HSPRN PRN GT Insomnia 06/03/20 21:00 06/06/20 20:59 Valproic Acid (Depakene) 500 mg EVERY 8 HOURS GT 06/03/20 14:00 06/29/20 21:59 06/06/20 05:16 Graciela Henry M.D. Jun 06, 2020 08:26
--- NOTE | 2020-06-06 08:32 | NUR ---
NURSE NOTES: Order received from Carla Jj for potassium replacement (40 mEq KDUR GT once), bilat lower extremity Venous duplex, and hold heparin for today for + OBS - OK to place pt on SCDs if venous duplex results return negative.
[2020-06-06] MEDS: Pantoprazole Inj IV SCH (08:50)
[2020-06-06] MEDS: Heparin 5000 units/ml inj SUBQ SCH (08:51)
[2020-06-06] MEDS ORDERED: Potassium Chloride 40 MEQ in Sodium Chloride 550 ML IVPB SCH (10:00)
--- NOTE | 2020-06-06 10:00 | NUR ---
NURSE NOTES: Pt repositioned - right lung remains elevated. Pt in no distress.
--- NOTE | 2020-06-06 10:40 | Pulmonolgy Critical Care Note ---
Critical Care - Asmt/Plan Assessment/Plan: ASSESSMENT s/p cardiopulmonary arrest Acute hypoxemic respiratory failure requiring intubation Sepsis with shock Persistent CONS bacteremia Pneumonia AINRUDH LEANN Down syndrome Hypothyroidism Seizure disorder PLAN OF CARE ICU vent support, pulmonary toilet with CPT and HHN ( COVID x 3 NGT) fup with CXR and ABG titrate settings based on results now down to 85% FiO2 Venous duplex BLE NGT, dc Heparin given stool OB + and start SCD ABG after FiO2 up to100% noted, keep settings as is and titrate Fio2 to keep sat above 92% CXR and ABG in am pressors; titrate to keep mean arterial BP > 65 also on IVF, midodrine and periodic albumin boluses Echo with pEF 65% Abx as per ID recs COVID-19 x3 NGT BCX 05/30 and 05/31 + CONS BCX 06/03 NGTD, BCX 06/04 + [facility] initial SCX + with Strep group G, repeated SCX NGT UCX NGT Echo no evidence of vegetation abx regimen broadened as per ID recs: daptomycin, meropenem, azithromycin, micafungin creatinine worsening, likely due to vancomycin IVF avoid nephrotoxic correct electrolytes as needed renal ultrasound nephro follows DVT GI prophylaxis continue levothyroxine , TSH within normal limits seizure precautions, continue Depakote 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 re necrotic toe case discussed and evaluated by supervising physician Critical Care - Objective Last 24 Hour Vital Signs Date Time Temp Pulse Resp B/P (MAP) Pulse Ox O2 Delivery O2 Flow Rate FiO2 06/06/20 10:00 81 23 100/37 (58) 91 06/06/20 09:16 85 06/06/20 09:15 75 21 101/72 (82) 94 06/06/20 09:00 77 22 91/72 (78) 93 06/06/20 09:00 91/56 06/06/20 08:00 98.7 78 21 120/93 (102) 94 06/06/20 08:00 71 06/06/20 08:00 80 06/06/20 07:48 78 22 70 06/06/20 07:45 78 22 90/62 (71) 100 06/06/20 07:30 74 21 115/90 (98) 97 06/06/20 07:15 59 20 117/55 (75) 97 06/06/20 07:00 117/55 06/06/20 07:00 61 20 110/54 (72) 96 06/06/20 06:30 63 20 110/46 (67) 96 06/06/20 06:00 106/54 06/06/20 06:00 62 20 108/52 (70) 96 06/06/20 05:30 64 20 105/50 (68) 95 06/06/20 05:00 65 20 105/48 (67) 94 06/06/20 05:00 109/42 06/06/20 04:36 66 20 100 06/06/20 04:30 66 20 106/50 (68) 93 06/06/20 04:00 99.5 68 20 104/48 (66) 92 06/06/20 04:00 Endotracheal Tube 06/06/20 04:00 111/58 06/06/20 04:00 100 06/06/20 03:58 70 06/06/20 03:45 69 20 105/48 (67) 92 06/06/20 03:30 70 20 104/49 (67) 92 06/06/20 03:27 116/49 06/06/20 03:15 71 21 116/49 (71) 92 06/06/20 03:03 67 22 100 06/06/20 03:00 73 23 113/52 (72) 94 06/06/20 02:45 94 22 111/58 (75) 91 06/06/20 02:30 68 20 107/54 (71) 94 06/06/20 02:15 69 20 104/55 (71) 94 06/06/20 02:00 72 21 104/51 (68) 95 06/06/20 02:00 104/55 06/06/20 01:45 76 26 110/50 (70) 95 06/06/20 01:15 73 22 119/40 (66) 93 06/06/20 01:08 74 21 100 06/06/20 01:00 74 21 118/47 (70) 93 06/06/20 01:00 119/40 06/06/20 00:30 74 23 127/38 (67) 95 06/06/20 00:00 98.4 65 20 122/39 (66) 97 06/06/20 00:00 100 06/06/20 00:00 127/36 8/29/20 00:00 Endotracheal Tube 06/06/20 00:00 77 06/05/20 23:30 71 20 121/41 (67) 98 06/05/20 23:16 71 22 100 06/05/20 23:00 122/45 06/05/20 23:00 71 20 122/45 (70) 99 20 22:43 119/45 06/05/20 22:30 71 21 119/45 (69) 99 06/05/20 22:00 72 20 115/44 (67) 99 06/05/20 22:00 115/44 06/05/20 21:49 73 20 113/47 (69) 97 06/05/20 21:48 65 20 93/60 (71) 98 06/05/20 21:32 72 20 88/51 (63) 95 06/05/20 21:15 74 23 106/64 (78) 99 06/05/20 21:00 97/82 06/05/20 21:00 75 21 97/82 (87) 100 06/05/20 20:45 70 23 122/45 (70) 99 06/05/20 20:43 70 22 100 06/05/20 20:30 70 21 131/87 (102) 99 06/05/20 20:15 70 23 112/46 (68) 99 06/05/20 20:00 98.8 67 22 112/55 (74) 99 06/05/20 20:00 70 06/05/20 20:00 112/55 06/05/20 20:00 Endotracheal Tube 06/05/20 20:00 100 06/05/20 19:52 66 20 104/49 (67) 100 06/05/20 19:45 71 23 76/52 (60) 99 06/05/20 19:30 67 21 87/57 (67) 99 06/05/20 19:22 70 22 97/45 (62) 99 06/05/20 19:19 68 22 82/49 (60) 99 06/05/20 19:15 73 25 82/58 (66) 99 06/05/20 19:02 72 22 100 06/05/20 19:00 110/68 06/05/20 19:00 72 23 110/68 (82) 99 06/05/20 18:30 88 27 137/109 (118) 94 06/05/20 18:19 79/42 06/05/20 18:15 69 17 77/39 (52) 100 06/05/20 18:00 75 22 79/41 (54) 99 06/05/20 18:00 122/58 06/05/20 17:45 69 22 85/40 (55) 99 06/05/20 17:30 65 22 122/58 (79) 100 06/05/20 17:15 63 19 124/49 (74) 100 06/05/20 17:00 68 26 115/48 (70) 100 06/05/20 17:00 111/52 06/05/20 16:45 71 27 118/56 (76) 100 06/05/20 16:30 68 30 112/56 (74) 100 06/05/20 16:15 67 31 124/57 (79) 100 06/05/20 16:00 99.8 67 31 124/57 (79) 100 06/05/20 16:00 66 06/05/20 16:00 100 06/05/20 16:00 124/57 06/05/20 16:00 Endotracheal Tube 06/05/20 15:45 87 26 122/106 (111) 99 06/05/20 15:30 61 19 123/92 (102) 100 06/05/20 15:15 61 23 120/101 (107) 100 06/05/20 15:12 60 23 100 06/05/20 15:02 73 19 59/41 (47) 99 06/05/20 15:00 72/43 06/05/20 15:00 62 18 72/43 (53) 99 06/05/20 14:45 68 20 108/69 (82) 99 06/05/20 14:30 73 20 70/43 (52) 99 06/05/20 14:15 77 18 124/43 (70) 99 06/05/20 14:00 79 27 114/44 (67) 100 06/05/20 14:00 114/44 06/05/20 13:45 92 27 123/79 (94) 96 06/05/20 13:30 79 23 119/45 (69) 99 06/05/20 13:15 75 19 128/65 (86) 100 06/05/20 13:00 71 19 128/65 (86) 99 06/05/20 13:00 128/65 06/05/20 12:45 52 19 115/47 (69) 100 06/05/20 12:30 53 17 121/48 (72) 100 06/05/20 12:15 100.0 53 18 116/59 (78) 100 06/05/20 12:00 52 06/05/20 12:00 56 20 115/51 (72) 100 06/05/20 12:00 100 06/05/20 12:00 115/51 06/05/20 12:00 Endotracheal Tube 06/05/20 11:46 56/22 06/05/20 11:45 61 21 113/42 (65) 100 06/05/20 11:30 88 18 56/22 (33) 99 06/05/20 11:29 84 20 100 06/05/20 11:17 83 20 60/30 (40) 100 06/05/20 11:15 79 20 64/27 (39) 99 06/05/20 11:01 100.0 06/05/20 11:00 65 20 101/43 (62) 100 06/05/20 11:00 101/43 Status: other - sedated, on Vent AC 500-20-100% PEEP5 Condition: critical HEENT: atraumatic, normocephalic, other - face with Down features, OP with ET in palce, intact Lungs: rhonchi - ANIRUDH Abdomen: soft, non-tender, feeding tube Decubiti: other - trace edema BLE Micro: Microbiology Date/Time Source Procedure Growth Status 06/04/20 16:15 Blood Blood Culture - Preliminary Resulted 06/04/20 16:05 Blood Blood Culture - Preliminary NO GROWTH AFTER 24 HOURS Resulted 06/03/20 13:30 Nasal Nares MRSA Culture - Final NO METHICILLIN RESISTANT STAPH AUREUS... Complete 06/03/20 13:30 Sputum Expectorated Gram Stain - Final Complete 06/03/20 13:30 Sputum Expectorated Sputum Culture - Final NORMAL UPPER RESPIRATORY MARIA A PRESENT Complete 06/03/20 13:20 Nasopharynx SARS-CoV-2 RdRp Gene Assay - Final Complete Accucheck: 131 Critical Care - Subjective ROS Limited/Unobtainable: Yes Interval Events: intubated, was on FiO2 85% earlier, desaturated, back to 100% CXR 06/05 increasing ANIRUDH consolidation leukocytosis worse, fevers yesterday, currently afebrile on levo 24 mcg/hr last BCX 06/04 just phoned again [facility] Condition: critical IV Access: central - femoral line intact EKG Rhythm: Sinus Rhythm FI02: 85 Vent Support Breath Rate: 20 Vent Support Mode: AC Vent Tidal Volume: 500 Sputum Amount: Scant PEEP: 5.0 PIP: 36 Drips: Levo 24 mcg/min Tube Feeding Amount: 20 I&O: Intake and Output 06/05/20 06/06/20 19:00 07:00 Intake Total 3315.996 ml 3020.35 ml Output Total 1875 ml 1425 ml Balance 1440.996 ml 1595.35 ml Free Water 290 ml 380 ml IV Total 2815.996 ml 2540.35 ml Tube Feeding 210 ml 100 ml Output Urine Total 1875 ml 1425 ml # Bowel Movements 5 2 CXR: Increasing left upper lobe dense consolidation and likely increasing bilateral pleural fluid. Persistent diffuse dense consolidation elsewhere ET-Tube: 7.5 ET Position: 22 Carla Jj BAIL BONDSMAN Jun 06, 2020 10:40
--- NOTE | 2020-06-06 11:00 | NUR ---
NURSE NOTES: ABG results for today relayed to Carla Jj, no new vent setting orders received- however, she states she will place orders for breathing Tx and CPT.
--- NOTE | 2020-06-06 11:25 | Nephrology Progress Note ---
Assessment/Plan Problem List: (1) LEANN (acute kidney injury) (2) Respiratory failure requiring intubation (3) Down's syndrome (4) Seizure disorder (5) Hypothyroidism Assessment Acute renal failure, likely due to hypotension Acute respiratory distress, hypoxia Seizure disorder Hypothyroidism Down syndrome Full code Fluid challenge with IV fluids and albumin Midodrine for BP above 100 systolic Check TSH level Check Correct level Monitor renal parameters Urine studies Per orders Plan June 06: Remains intubated. Labs reviewed. Creatinine 1.9. Blood pressure systolic 90s. Continue per consultants. June 05: Remains intubated. Labs reviewed. Serum creatinine lower to 2. Vancomycin level lower. Remains hypotensive on pressors. Will increase midodrine to 10 mg every 8 hours. Continue per consultants. Continue to monitor renal parameters. June 04: Patient now in ICU. Intubated. On pressors. Labs reviewed. Will increase midodrine. Aim to keep blood pressure over 100 systolic. Will give albumin bolus. Will check vancomycin level which was elevated when checked previously on June 01. Will monitor renal parameters. Continue per consultants. Subjective ROS Limited/Unobtainable: Yes Objective Objective Last 24 Hour Vital Signs Date Time Temp Pulse Resp B/P (MAP) Pulse Ox O2 Delivery O2 Flow Rate FiO2 06/06/20 11:00 83 24 99/44 (62) 89 06/06/20 10:45 91 27 70 06/06/20 10:00 81 23 100/37 (58) 91 06/06/20 09:16 85 06/06/20 09:15 75 21 101/72 (82) 94 06/06/20 09:00 77 22 91/72 (78) 93 06/06/20 09:00 91/56 06/06/20 08:00 Mechanical Ventilator Mechanical Ventilator 06/06/20 08:00 98.7 78 21 120/93 (102) 94 06/06/20 08:00 71 06/06/20 08:00 80 06/06/20 07:48 78 22 70 06/06/20 07:45 78 22 90/62 (71) 100 06/06/20 07:30 74 21 115/90 (98) 97 06/06/20 07:15 59 20 117/55 (75) 97 06/06/20 07:00 117/55 06/06/20 07:00 61 20 110/54 (72) 96 06/06/20 06:30 63 20 110/46 (67) 96 06/06/20 06:00 106/54 06/06/20 06:00 62 20 108/52 (70) 96 06/06/20 05:30 64 20 105/50 (68) 95 06/06/20 05:00 65 20 105/48 (67) 94 06/06/20 05:00 109/42 06/06/20 04:36 66 20 100 06/06/20 04:30 66 20 106/50 (68) 93 06/06/20 04:00 99.5 68 20 104/48 (66) 92 06/06/20 04:00 Endotracheal Tube 06/06/20 04:00 111/58 06/06/20 04:00 100 06/06/20 03:58 70 06/06/20 03:45 69 20 105/48 (67) 92 06/06/20 03:30 70 20 104/49 (67) 92 06/06/20 03:27 116/49 06/06/20 03:15 71 21 116/49 (71) 92 06/06/20 03:03 67 22 100 06/06/20 03:00 73 23 113/52 (72) 94 06/06/20 02:45 94 22 111/58 (75) 91 06/06/20 02:30 68 20 107/54 (71) 94 06/06/20 02:15 69 20 104/55 (71) 94 06/06/20 02:00 72 21 104/51 (68) 95 06/06/20 02:00 104/55 06/06/20 01:45 76 26 110/50 (70) 95 06/06/20 01:15 73 22 119/40 (66) 93 06/06/20 01:08 74 21 100 06/06/20 01:00 74 21 118/47 (70) 93 06/06/20 01:00 119/40 06/06/20 00:30 74 23 127/38 (67) 95 06/06/20 00:00 98.4 65 20 122/39 (66) 97 06/06/20 00:00 100 06/06/20 00:00 127/36 06/06/20 00:00 Endotracheal Tube 06/06/20 00:00 77 06/05/20 23:30 71 20 121/41 (67) 98 06/05/20 23:16 71 22 100 06/05/20 23:00 122/45 06/05/20 23:00 71 20 122/45 (70) 99 06/05/20 22:43 119/45 20 22:30 71 21 119/45 (69) 99 20 22:00 72 20 115/44 (67) 99 06/05/20 22:00 115/44 06/05/20 21:49 73 20 113/47 (69) 97 06/05/20 21:48 65 20 93/60 (71) 98 06/05/20 21:32 72 20 88/51 (63) 95 06/05/20 21:15 74 23 106/64 (78) 99 06/05/20 21:00 97/82 06/05/20 21:00 75 21 97/82 (87) 100 06/05/20 20:45 70 23 122/45 (70) 99 06/05/20 20:43 70 22 100 06/05/20 20:30 70 21 131/87 (102) 99 06/05/20 20:15 70 23 112/46 (68) 99 06/05/20 20:00 98.8 67 22 112/55 (74) 99 06/05/20 20:00 70 06/05/20 20:00 112/55 06/05/20 20:00 Endotracheal Tube 06/05/20 20:00 100 06/05/20 19:52 66 20 104/49 (67) 100 06/05/20 19:45 71 23 76/52 (60) 99 06/05/20 19:30 67 21 87/57 (67) 99 06/05/20 19:22 70 22 97/45 (62) 99 06/05/20 19:19 68 22 82/49 (60) 99 06/05/20 19:15 73 25 82/58 (66) 99 06/05/20 19:02 72 22 100 06/05/20 19:00 110/68 06/05/20 19:00 72 23 110/68 (82) 99 06/05/20 18:30 88 27 137/109 (118) 94 06/05/20 18:19 79/42 06/05/20 18:15 69 17 77/39 (52) 100 06/05/20 18:00 75 22 79/41 (54) 99 06/05/20 18:00 122/58 06/05/20 17:45 69 22 85/40 (55) 99 06/05/20 17:30 65 22 122/58 (79) 100 06/05/20 17:15 63 19 124/49 (74) 100 06/05/20 17:00 68 26 115/48 (70) 100 06/05/20 17:00 111/52 06/05/20 16:45 71 27 118/56 (76) 100 06/05/20 16:30 68 30 112/56 (74) 100 06/05/20 16:15 67 31 124/57 (79) 100 06/05/20 16:00 99.8 67 31 124/57 (79) 100 06/05/20 16:00 66 06/05/20 16:00 100 06/05/20 16:00 124/57 06/05/20 16:00 Endotracheal Tube 06/05/20 15:45 87 26 122/106 (111) 99 06/05/20 15:30 61 19 123/92 (102) 100 06/05/20 15:15 61 23 120/101 (107) 100 06/05/20 15:12 60 23 100 06/05/20 15:02 73 19 59/41 (47) 99 06/05/20 15:00 72/43 06/05/20 15:00 62 18 72/43 (53) 99 06/05/20 14:45 68 20 108/69 (82) 99 06/05/20 14:30 73 20 70/43 (52) 99 06/05/20 14:15 77 18 124/43 (70) 99 06/05/20 14:00 79 27 114/44 (67) 100 06/05/20 14:00 114/44 06/05/20 13:45 92 27 123/79 (94) 96 06/05/20 13:30 79 23 119/45 (69) 99 06/05/20 13:15 75 19 128/65 (86) 100 06/05/20 13:00 71 19 128/65 (86) 99 06/05/20 13:00 128/65 06/05/20 12:45 52 19 115/47 (69) 100 06/05/20 12:30 53 17 121/48 (72) 100 06/05/20 12:15 100.0 53 18 116/59 (78) 100 06/05/20 12:00 52 06/05/20 12:00 56 20 115/51 (72) 100 06/05/20 12:00 100 06/05/20 12:00 115/51 06/05/20 12:00 Endotracheal Tube 06/05/20 11:46 56/22 06/05/20 11:45 61 21 113/42 (65) 100 06/05/20 11:30 88 18 56/22 (33) 99 06/05/20 11:29 84 20 100 Intake and Output 06/05/20 06/06/20 19:00 07:00 Intake Total 3315.996 ml 3020.35 ml Output Total 1875 ml 1425 ml Balance 1440.996 ml 1595.35 ml Free Water 290 ml 380 ml IV Total 2815.996 ml 2540.35 ml Tube Feeding 210 ml 100 ml Output Urine Total 1875 ml 1425 ml # Bowel Movements 5 2 Current Medications Medications (Trade) Dose Ordered Sig/Katy Route PRN Reason Start Time Stop Time Status Last Admin Dose Admin Acetaminophen (Tylenol) 650 mg Q4H PRN GT FEVER 06/03/20 11:45 07/03/20 11:44 06/05/20 10:31 Chlorhexidine Gluconate (Alla-Hex 2%) 1 applic DAILY@2000 TOPIC 06/03/20 20:00 09/01/20 19:59 06/05/20 20:53 Daptomycin 350 mg/ Sodium Chloride 55 ml @ 100 mls/hr Q48H IV 06/05/20 11:00 06/09/20 10:59 06/05/20 10:31 Dextrose (Dextrose 50%) 25 ml Q30M PRN IV Hypoglycemia 06/03/20 11:30 08/28/20 11:29 Dextrose (Dextrose 50%) 50 ml Q30M PRN IV Hypoglycemia 06/03/20 11:30 08/28/20 11:29 Heparin Sodium (Porcine) (Heparin 5000 units/ml) 5,000 units EVERY 12 HOURS SUBQ 06/03/20 21:00 07/14/20 20:59 06/05/20 20:54 Levothyroxine Sodium (Synthroid) 75 mcg DAILY GT 06/04/20 09:00 06/30/20 08:59 06/06/20 08:50 Meropenem 1 gm/ Sodium Chloride 55 ml @ 110 mls/hr Q12H IVPB 06/03/20 16:00 06/08/20 15:59 06/06/20 03:27 Metoclopramide HCl (Reglan) 5 mg Q6H IVP 06/05/20 20:30 07/05/20 20:29 06/06/20 08:50 Micafungin Sodium 100 mg/Sodium Chloride 110 ml @ 110 mls/hr Q24H IVPB 06/04/20 14:00 06/11/20 13:59 06/05/20 13:36 Midodrine (Pro-Amatine) 10 mg Q8HR GT 06/05/20 14:00 09/03/20 13:59 06/06/20 05:16 Norepinephrine Bitartrate 8 mg/ Dextrose 558 ml @ 0 mls/hr Q24H IV 06/04/20 09:00 07/04/20 08:59 06/06/20 09:00 Ondansetron HCl (Zofran) 4 mg Q6H PRN IVP Nausea & Vomiting 06/03/20 12:00 06/29/20 11:59 Pantoprazole (Protonix) 40 mg DAILY IV 06/04/20 09:00 06/30/20 08:59 06/06/20 08:50 Polyethylene Glycol (Miralax) 17 gm DAILYPRN PRN GT Constipation 06/03/20 12:00 06/29/20 11:59 Potassium Chloride 40 meq/ Sodium Chloride 570 ml @ 142.5 mls/ hr ONCE IVPB 06/06/20 10:00 06/06/20 13:59 06/06/20 10:06 Sodium Chloride 1,000 ml @ 100 mls/hr Q10H IV 06/03/20 23:00 07/03/20 22:59 06/06/20 10:06 Temazepam (Restoril) 15 mg HSPRN PRN GT Insomnia 06/03/20 21:00 06/06/20 20:59 Valproic Acid (Depakene) 500 mg EVERY 8 HOURS GT 06/03/20 14:00 06/29/20 21:59 06/06/20 05:16 Laboratory Tests 06/06/20 04:35: White Blood Count 19.4H, Red Blood Count 3.13L, Hemoglobin 10.7L, Hematocrit 32.4L, Mean Corpuscular Volume 104H, Mean Corpuscular Hemoglobin 34.3H, Mean Corpuscular Hemoglobin Concent 33.1, Red Cell Distribution Width 13.2, Platelet Count 174, Mean Platelet Volume 6.5, Neutrophils (%) (Auto) , Lymphocytes (%) ( Auto) , Monocytes (%) (Auto) , Eosinophils (%) (Auto) , Basophils (%) (Auto) , Differential Total Cells Counted 100, Neutrophils % (Manual) 91H, Lymphocytes % (Manual) 6L, Monocytes % (Manual) 3, Eosinophils % (Manual) 0, Basophils % ( Manual) 0, Band Neutrophils 0, Platelet Estimate Adequate, Platelet Morphology Normal, Hypochromasia 2+, Anisocytosis 1+, Macrocytosis 1+, Sodium Level 136, Potassium Level 3.2L, Chloride Level 107, Carbon Dioxide Level 20L, Anion Gap 9 , Blood Urea Nitrogen 16, Creatinine 1.9H, Estimat Glomerular Filtration Rate 27.2, Glucose Level 106, Uric Acid 4.0, Calcium Level 7.1L, Phosphorus Level 3.3 , Magnesium Level 1.8, Total Bilirubin 0.2, Aspartate Amino Transf (AST/SGOT) 32 , Alanine Aminotransferase (ALT/SGPT) 16, Alkaline Phosphatase 60, C-Reactive Protein, Quantitative 21.8H, Pro-B-Type Natriuretic Peptide 56638Y, Total Protein 4.7L, Albumin 1.5L, Globulin 3.2, Albumin/Globulin Ratio 0.5L, Anti- Nuclear Antibody Screen [Pending], c-ANCA Titer [Pending], p-ANCA Titer [Pending ], Blastomyces Ab Immunodiffusion [Pending], Coccidioides Antibody (Comp Fix) [ Pending], Histoplasma Mycelial Antibody [Pending], Histoplasma Antibody w Mycelial Ag [Pending], Histoplasma Antibody with Yeast Ag [Pending] 06/06/20 05:00: Histoplasma Antigen [Pending] Height (Feet): 5 Height (Inches): 3.00 Weight (Pounds): 155 General Appearance: no apparent distress Cardiovascular: normal rate - Rate 80s Respiratory/Chest: decreased breath sounds Abdomen: soft Keron Pitt MD Jun 06, 2020 11:25
[2020-06-06] MEDS ORDERED: Albuterol/Ipratropium 3ml neb HHN PRN (11:30)
--- NOTE | 2020-06-06 11:41 | Diagnostic Imaging Report ---
EXAM: US Duplex Bilateral Lower Extremities Veins CLINICAL HISTORY: DVT TECHNIQUE: Real-time duplex ultrasound scan of the bilateral lower extremity veins integrating B-mode two-dimensional vascular structure, Doppler spectral analysis, color flow Doppler imaging and compression. COMPARISON: None FINDINGS: Right deep veins: Unremarkable. No DVT in the right common femoral, femoral, proximal deep femoral or popliteal veins. The veins demonstrate normal color flow, are normally compressible, with normal phasic flow and/or augmentation response. Right superficial veins: Unremarkable. No thrombus in the visualized right great saphenous vein. Left deep veins: Unremarkable. No DVT in the left common femoral, femoral, proximal deep femoral or popliteal veins. The veins demonstrate normal color flow, are normally compressible, with normal phasic flow and/or augmentation response. Left superficial veins: Unremarkable. No thrombus in the visualized left great saphenous vein. Soft tissues: Soft tissue edema. No popliteal cyst. IMPRESSION: No deep venous thrombosis identified in either lower extremity.
--- NOTE | 2020-06-06 11:46 | NUR ---
NURSE NOTES: Venous duplex results noted negative. SCDs applied to bilat lower extremities. Heparin d/c per order from Carla Jj for OBS positive results.
--- NOTE | 2020-06-06 11:59 | NUR ---
NURSE NOTES: bedside renal US currently being performed. Pt repositioned prior and oral care provided. bLOOD CULTURE AND gt SITE CULTURE SENT DOWN TO LAB. No distress noted at this time. WILL continue to monitor.
--- NOTE | 2020-06-06 12:00 | NUR ---
NURSE NOTES: Pt noted desaturating in 70-80s- received new vent setting orders from Carla Jj to place pt on VC plus mode with inverse I:E ratio - pt placed on new vent setting per RT. Aibgail Will continue to monitor. Addendum: 06/06/20 at 1342 by Mary Britt RN Late entry: respirations appear labored - RR noted 30-40s prior to vent settings change
--- NOTE | 2020-06-06 12:18 | Diagnostic Imaging Report ---
EXAM: US Retroperitoneal Complete, Renal CLINICAL HISTORY: RENAL-A TECHNIQUE: Real-time complete ultrasound of the retroperitoneum with image documentation. COMPARISON: None FINDINGS: Inferior vena cava: Visualized portions of the IVC are grossly unremarkable. Right kidney: Right kidney measures 10.6 cm in length. No hydronephrosis or stone. Left kidney: Left kidney measures 10.5 cm in length. No hydronephrosis or stone. Bladder: Gregorio catheter in a decompressed bladder. IMPRESSION: No hydronephrosis or stone.
--- NOTE | 2020-06-06 12:30 | NUR ---
NURSE NOTES: SpO2 now noted consistently above 92% with new vent settings - respirations also appear less labored- RR 20-22.
[2020-06-06] MEDS: Albuterol/Ipratropium 3ml neb HHN SCH ×2 (12:34→18:51)
[2020-06-06] MEDS: Micafungin 100 MG in NS 110 ML IVPB SCH (13:15)
--- NOTE | 2020-06-06 14:00 | NUR ---
NURSE NOTES: Pt repositioned with right lung remaining elevated. New levophed bag hung - rate remains 28 mcg/min BP 96/56. Will continue to monitor.
--- NOTE | 2020-06-06 15:09 | Internal Med Progress Note ---
Subjective Date of Service: Jun 06, 2020 Physician Name Joni Copeland Attending Physician Elayne Allred MD Current Medications Medications (Trade) Dose Ordered Sig/Katy Route PRN Reason Start Time Stop Time Status Last Admin Dose Admin Acetaminophen (Tylenol) 650 mg Q4H PRN GT FEVER 06/03/20 11:45 07/03/20 11:44 06/05/20 10:31 Albuterol/ Ipratropium (Albuterol/ Ipratropium) 3 ml Q4H PRN HHN Shortness of Breath 06/06/20 11:30 06/11/20 11:29 Albuterol/ Ipratropium (Albuterol/ Ipratropium) 3 ml TIDRT HHN 06/06/20 13:00 06/11/20 12:59 06/06/20 12:34 Chlorhexidine Gluconate (Alla-Hex 2%) 1 applic DAILY@2000 TOPIC 06/03/20 20:00 09/01/20 19:59 06/05/20 20:53 Daptomycin 350 mg/ Sodium Chloride 55 ml @ 100 mls/hr Q48H IV 06/05/20 11:00 06/09/20 10:59 06/05/20 10:31 Dextrose (Dextrose 50%) 25 ml Q30M PRN IV Hypoglycemia 06/03/20 11:30 08/28/20 11:29 Dextrose (Dextrose 50%) 50 ml Q30M PRN IV Hypoglycemia 06/03/20 11:30 08/28/20 11:29 Levothyroxine Sodium (Synthroid) 75 mcg DAILY GT 06/04/20 09:00 06/30/20 08:59 06/06/20 08:50 Linezolid 300 ml @ 300 mls/hr Q12H IVPB 06/06/20 15:00 06/13/20 14:59 06/06/20 13:59 Meropenem 1 gm/ Sodium Chloride 55 ml @ 110 mls/hr Q12H IVPB 06/03/20 16:00 06/08/20 15:59 06/06/20 03:27 Micafungin Sodium 100 mg/Sodium Chloride 110 ml @ 110 mls/hr Q24H IVPB 06/04/20 14:00 06/11/20 13:59 06/06/20 13:15 Midodrine (Pro-Amatine) 10 mg Q8HR GT 06/05/20 14:00 09/03/20 13:59 06/06/20 13:22 Norepinephrine Bitartrate 8 mg/ Dextrose 558 ml @ 0 mls/hr Q24H IV 06/04/20 09:00 07/04/20 08:59 06/06/20 13:59 Ondansetron HCl (Zofran) 4 mg Q6H PRN IVP Nausea & Vomiting 06/03/20 12:00 06/29/20 11:59 Pantoprazole (Protonix) 40 mg DAILY IV 06/04/20 09:00 06/30/20 08:59 06/06/20 08:50 Polyethylene Glycol (Miralax) 17 gm DAILYPRN PRN GT Constipation 06/03/20 12:00 06/29/20 11:59 Sodium Chloride 1,000 ml @ 100 mls/hr Q10H IV 06/03/20 23:00 07/03/20 22:59 06/06/20 10:06 Temazepam (Restoril) 15 mg HSPRN PRN GT Insomnia 06/03/20 21:00 06/06/20 20:59 Valproic Acid (Depakene) 500 mg EVERY 8 HOURS GT 06/03/20 14:00 06/29/20 21:59 06/06/20 13:15 Allergies: Coded Allergies: No Known Allergies (Unverified , 10/16/18) ROS Limited/Unobtainable: Yes Subjective 59 YO F with Down's syndrome admitted with hypoxia. Now sepsis and pneumonia. Cover for Int Med-DR Hawk. ICU. Intubated and sedated Objective Last Vital Signs Date Time Temp Pulse Resp B/P (MAP) Pulse Ox O2 Delivery O2 Flow Rate FiO2 06/06/20 14:00 96/56 06/06/20 14:00 64 20 94 06/06/20 12:00 98.5 06/06/20 12:00 100 06/06/20 12:00 Mechanical Ventilator Mechanical Ventilator 06/04/20 00:00 15.0 Laboratory Tests Test 06/06/20 04:35 06/06/20 05:00 06/06/20 10:43 White Blood Count 19.4 K/UL (4.8-10.8) H Red Blood Count 3.13 M/UL (4.20-5.40) L Hemoglobin 10.7 G/DL (12.0-16.0) L Hematocrit 32.4 % (37.0-47.0) L Mean Corpuscular Volume 104 FL (80-99) H Mean Corpuscular Hemoglobin 34.3 PG (27.0-31.0) H Mean Corpuscular Hemoglobin Concent 33.1 G/DL (32.0-36.0) Red Cell Distribution Width 13.2 % (11.6-14.8) Platelet Count 174 K/UL (150-450) Mean Platelet Volume 6.5 FL (6.5-10.1) Neutrophils (%) (Auto) % (45.0-75.0) Lymphocytes (%) (Auto) % (20.0-45.0) Monocytes (%) (Auto) % (1.0-10.0) Eosinophils (%) (Auto) % (0.0-3.0) Basophils (%) (Auto) % (0.0-2.0) Differential Total Cells Counted 100 Neutrophils % (Manual) 91 % (45-75) H Lymphocytes % (Manual) 6 % (20-45) L Monocytes % (Manual) 3 % (1-10) Eosinophils % (Manual) 0 % (0-3) Basophils % (Manual) 0 % (0-2) Band Neutrophils 0 % (0-8) Platelet Estimate Adequate Platelet Morphology Normal Hypochromasia 2+ Anisocytosis 1+ Macrocytosis 1+ Sodium Level 136 MMOL/L (136-145) Potassium Level 3.2 MMOL/L (3.5-5.1) L Chloride Level 107 MMOL/L (98-107) Carbon Dioxide Level 20 MMOL/L (21-32) L Anion Gap 9 mmol/L (5-15) Blood Urea Nitrogen 16 mg/dL (7-18) Creatinine 1.9 MG/DL (0.55-1.30) H Estimat Glomerular Filtration Rate 27.2 mL/min (>60) Glucose Level 106 MG/DL (74-106) Uric Acid 4.0 MG/DL (2.6-7.2) Calcium Level 7.1 MG/DL (8.5-10.1) L Phosphorus Level 3.3 MG/DL (2.5-4.9) Magnesium Level 1.8 MG/DL (1.8-2.4) Total Bilirubin 0.2 MG/DL (0.2-1.0) Aspartate Amino Transf (AST/SGOT) 32 U/L (15-37) Alanine Aminotransferase (ALT/SGPT) 16 U/L (12-78) Alkaline Phosphatase 60 U/L (46-116) C-Reactive Protein, Quantitative 21.8 mg/dL (0.00-0.90) H Pro-B-Type Natriuretic Peptide 29591 pg/mL (0-125) H Total Protein 4.7 G/DL (6.4-8.2) L Albumin 1.5 G/DL (3.4-5.0) L Globulin 3.2 g/dL Albumin/Globulin Ratio 0.5 (1.0-2.7) L Anti-Nuclear Antibody Screen Pending c-ANCA Titer Pending p-ANCA Titer Pending Blastomyces Ab Immunodiffusion Pending Coccidioides Antibody (Comp Fix) Pending Histoplasma Mycelial Antibody Pending Histoplasma Antibody w Mycelial Ag Pending Histoplasma Antibody with Yeast Ag Pending Histoplasma Antigen Pending Arterial Blood pH 7.272 (7.350-7.450) Arterial Blood Partial Pressure CO2 36.7 mmHg (35.0-45.0) Arterial Blood Partial Pressure O2 50.6 mmHg (75.0-100.0) L Arterial Blood HCO3 16.6 mmol/L (22.0-26.0) *L Arterial Blood Oxygen Saturation 84.2 % (95-100) *L Arterial Blood Base Excess -9.5 (-2-2) *L Jonathan Test Positive Microbiology Date/Time Source Procedure Growth Status 06/04/20 16:15 Blood Blood Culture - Preliminary Resulted 06/04/20 16:05 Blood Blood Culture - Preliminary NO GROWTH AFTER 24 HOURS Resulted Intake and Output 06/05/20 06/06/20 19:00 07:00 Intake Total 3315.996 ml 3020.35 ml Output Total 1875 ml 1425 ml Balance 1440.996 ml 1595.35 ml Free Water 290 ml 380 ml IV Total 2815.996 ml 2540.35 ml Tube Feeding 210 ml 100 ml Output Urine Total 1875 ml 1425 ml # Bowel Movements 5 2 Objective General Appearance: WD/WN, no apparent distress, alert EENT: PERRL/EOMI, normal ENT inspection Neck: non-tender, normal alignment, supple, normal inspection Cardiovascular: normal peripheral pulses, normal rate, regular rhythm, no gallop/murmur, no JVD Respiratory/Chest: Mec vent; decreased breath sounds, crackles/rales, rhonchi - bilaterally, expiratory wheezing Abdomen: normal bowel sounds, non tender, soft, no organomegaly, no mass Extremities: normal range of motion 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 Continue daptomycin per ID=Dr Camejo. Pulmonary/Critical care=DR Allred. COVID NEG (2) Sepsis Assessment & Plan: Staph haemolyticus. Continue daptomycin and ceftriaxone per ID=Dr Camejo (3) Down's syndrome (4) Dysphagia Assessment & Plan: S/P PEG (5) Seizure disorder Assessment & Plan: Continue keppra and depakote (6) Hypothyroidism Assessment & Plan: Continue synthroid (7) Acute respiratory failure Assessment & Plan: Pulmonary = Dr Allred; [facility] vent Joni Copeland MD Jun 06, 2020 15:09
--- NOTE | 2020-06-06 16:00 | NUR ---
NURSE NOTES: Pt repositioned with right chest up; oral care provided; afebrile at this time; 1 BM noted- pt cleaned. BP noted 83/54 - Levo titrated up to 30 mcg/min. Left message for Carla Jj with BP trends and requested stand-by order for second vasopressor. Awaiting call back.
--- NOTE | 2020-06-06 16:15 | NUR ---
NURSE NOTES: BP now 98/66 on 30 mcg/min of Levo. No distress noted. Will continue to monitor pt.
[2020-06-06] MEDS ORDERED: Tubing IV Secondary IV ONE (17:50)
[2020-06-06] MEDS ORDERED: NS 500ML ONE (17:50)
[2020-06-06] MEDS ORDERED: NS 275ml ONE (17:50)
[2020-06-06] MEDS ORDERED: D5W 550ml IV ONE (17:50)
--- NOTE | 2020-06-06 18:00 | NUR ---
NURSE NOTES: Pt repositioned, right side remains elevated.
--- NOTE | 2020-06-06 18:30 | NUR ---
NURSE NOTES: Spoke to Carla Jj, let her know pt still desaturating with AC 20. Order received to increase rate to 30 and give 1 amp of HCO3- and repeat ABG in one hour. RT notified. Addendum: 06/06/20 at 1854 by Mary Britt RN Amendment: 1 amp of NaHCO3
[2020-06-06] MEDS ORDERED: Sodium Bicarbonate 50ml Carp IV SCH (18:45)
--- NOTE | 2020-06-06 19:30 | NUR ---
NURSE NOTES: Received report from TAI Hernandez. Pt opens eyes spontaneously; does not follow commands; withdraws to pain. Pt is Afebrile, and ST on monitor technician Intubated on 06/04 with 7.5 ETT noted 22 cm at the lip line. Settings: AC/VC30 TV 500 FiO2 100% Peep 5 G-Tube noted, CDI. Jevity 1.2 at 20 cc/hr HOLD for unstable condition per AMRN. Gregorio noted draining pale, yellow urine. Skin alterations noted on pt's toe bilaterally. Pt has a left femoral TLC, CDI Running NS at 100 cc/hr and Levophed at 30 mcg/min. Safe measures observed. Side rails up x 2 and padded per seizure precaution. No acute distress noted. Will continue to monitor.
--- NOTE | 2020-06-06 19:34 | NUR ---
NURSE HAND-OFF REPORT: Latest Vital Signs: Temperature 98.9 , Pulse 77 , B/P 111 /68 , Respiratory Rate 30 , O2 SAT 94 , Mechanical Ventilator, O2 Flow Rate 15.0 . Vital Sign Comment: now stable on max levo - endorsed to titrate down Levo. ABG currently being drawn EKG Rhythm: Sinus Rhythm Rhythm change?: N MD Notified?: n/a MD Response: n/a Latest Osorio Fall Score: 50 Fall Risk: High Risk Safety Measures: Call light Within Reach, Bed Alarm Zone 2, Side Rails Side Rails x3, Bed position Low and Locked. SZ Precaution implemented. Fall Precautions: Yellow Socks Door Sign Patient Fall Education Report given to Sowmya Andrea RN.
[2020-06-06] MEDS: Dyna-Hex 2% Top Sol 2oz TOPIC SCH (20:17)
[2020-06-06] MEDS: Phenylephrine 50 MG in D5W 245 ML IV PRN (22:27)
--- NOTE | 2020-06-06 22:30 | NUR ---
NURSE NOTES: BP decreases. Phenylephrine (ZAKIYA) started @20mcg/min. Pt is asymptomatic.
[2020-06-06] MEDS: Acetaminophen 650mg/20.3ml GT PRN (23:15)
[2020-06-07] VITALS (64 sets, daily range): BP systolic 67–148; BP diastolic 14–109
--- NOTE | 2020-06-07 01:00 | NUR ---
NURSE NOTES: Pt's BP and saturation were ups and downs. Hold feeding due to unstable condition.
--- NOTE | 2020-06-07 02:30 | NUR ---
NURSE NOTES: AM care given Soiled gowns, linens, and slider all changed. 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 Settings: AC/VC30 TV 500 FiO2 100% Peep 5 G-Tube dressing changed. Jevity 1.2 at 20 cc/hr HOLD for unstable condition per AMRN. Gregorio noted draining pale, yellow urine. Skin alterations noted on pt's toe bilaterally. Pt has a left femoral TLC, CDI Running NS at 100 cc/hr and Levophed at 30 mcg/min. Safe measures observed. Side rails up x 2 and padded per seizure precaution. No acute distress noted. Will continue to monitor.
--- NOTE | 2020-06-07 03:30 | NUR ---
NURSE NOTES: 3rd loose stool withih 24 hours noted. C-Diff collected and sent to the lab.
[2020-06-07] MEDS: Meropenem 1 GM in NS 55 ML IVPB SCH ×2 (03:43→15:43)
[2020-06-07] MEDS: Norepinephrine Bitartrate 8 MG in D5W 500ml 550 ML IV SCH ×2 (04:16→08:30)
--- NOTE | 2020-06-07 05:45 | NUR ---
NURSE NOTES: Desats to 60s. primary RN and 2RTs are the bedside. Using Ambu-bag and suction. Back up to 90s. Will continue to monitor.
--- NOTE | 2020-06-07 05:48 | NUR ---
[place] fast not changed due to Pt condition. Addendum: 06/07/20 at 0550 by Oren Leavitt, RT Amended: Links added.
[2020-06-07] MEDS: Valproic Acid 250mg/5ml Liquid GT SCH ×3 (06:12→21:39)
[2020-06-07] MEDS: Midodrine 10mg tab GT SCH ×3 (06:13→21:39)
[2020-06-07 06:14] LABS: BASOPHILS % (AUTO) 0.8 % (0.0-2.0); EOSINOPHILS % (AUTO) 0.6 % (0.0-3.0); HEMATOCRIT 39.5 % (37.0-47.0); HEMOGLOBIN 12.8 G/DL (12.0-16.0); LYMPHOCYTES % (AUTO) 7.2 % (20.0-45.0); MEAN CORPUSCULAR VOLUME 106 FL (80-99); MONOCYTES % (AUTO) 7.5 % (1.0-10.0); NEUTROPHILS % (AUTO) 83.9 % (45.0-75.0); PLATELET COUNT 180 K/UL (150-450); RED BLOOD COUNT 3.73 M/UL (4.20-5.40); RED CELL DISTRIBUTION WIDTH 13.6 % (11.6-14.8)
[2020-06-07 06:33] LABS: PHOSPHORUS 2.7 MG/DL (2.5-4.9)
[2020-06-07 06:38] LABS: ALANINE AMINOTRANSFERASE 8 U/L (12-78); ALBUMIN 1.7 G/DL (3.4-5.0); ALBUMIN/GLOBULIN RATIO 0.5 (1.0-2.7); ALKALINE PHOSPHATASE 74 U/L (46-116); ANION GAP 10 mmol/L (5-15); ASPARTATE AMINO TRANSFERASE 32 U/L (15-37); BILIRUBIN,TOTAL 0.5 MG/DL (0.2-1.0); BLOOD UREA NITROGEN 14 mg/dL (7-18); CALCIUM 7.8 MG/DL (8.5-10.1); CARBON DIOXIDE 19 MMOL/L (21-32); CHLORIDE 106 MMOL/L (98-107); CREATININE 1.9 MG/DL (0.55-1.30); POTASSIUM 3.7 MMOL/L (3.5-5.1); SODIUM 135 MMOL/L (136-145)
--- NOTE | 2020-06-07 07:30 | NUR ---
HAND-OFF: Report given to TAI Zamorano. Endorsed POC.
--- NOTE | 2020-06-07 07:31 | NUR ---
NURSE NOTES: Received report from TAI Deng. Patient is obtunded. ETT 7.5/23cm at lip line with vent setting AC 30, VT 500, Peep 5 and FiO2 100%. O2 sat 94% on the monitor at this time. Gtube intact and clamped at this time. Gregorio intact and draining with yellow color urine. Left femoral TLC intact and running with levophed 30mcg/min, Wiliam 60mcg/min and NS 100mlhr. Kept dry, clean, comfortable and HOB>30. Will continue plan of care.
[2020-06-07] MEDS: Albuterol/Ipratropium 3ml neb HHN SCH ×3 (08:25→19:07)
[2020-06-07] MEDS: Pantoprazole Inj IV SCH (08:29)
--- NOTE | 2020-06-07 08:50 | NUR ---
NURSE NOTES: Seen by Carla Jj and assessed patient. She said she will put cardio consult.
--- NOTE | 2020-06-07 09:27 | Nephrology Progress Note ---
Assessment/Plan Problem List: (1) LEANN (acute kidney injury) (2) Respiratory failure requiring intubation (3) Down's syndrome (4) Seizure disorder (5) Hypothyroidism Assessment Acute renal failure, likely due to hypotension Acute respiratory distress, hypoxia Seizure disorder Hypothyroidism Down syndrome Full code Fluid challenge with IV fluids and albumin Midodrine for BP above 100 systolic Check TSH level Check Correct level Monitor renal parameters Urine studies Per orders Plan June 07: Intubated. Labs reviewed. Creatinine 1.9 unchanged. Continue same treatment plan. Per consultants. Overall poor prognosis since the patient remains on pressors and her pulmonary status is worsening. June 06: Remains intubated. Labs reviewed. Creatinine 1.9. Blood pressure systolic 90s. Continue per consultants. June 05: Remains intubated. Labs reviewed. Serum creatinine lower to 2. Vancomycin level lower. Remains hypotensive on pressors. Will increase midodrine to 10 mg every 8 hours. Continue per consultants. Continue to monitor renal parameters. June 04: Patient now in ICU. Intubated. On pressors. Labs reviewed. Will increase midodrine. Aim to keep blood pressure over 100 systolic. Will give albumin bolus. Will check vancomycin level which was elevated when checked previously on June 01. Will monitor renal parameters. Continue per consultants. Subjective ROS Limited/Unobtainable: Yes Objective Objective Last 24 Hour Vital Signs Date Time Temp Pulse Resp B/P (MAP) Pulse Ox O2 Delivery O2 Flow Rate FiO2 06/07/20 08:30 144/109 06/07/20 07:54 70 30 100 06/07/20 06:30 99.1 73 30 142/59 (86) 100 73 06/07/20 06:00 77 30 138/67 (90) 99 77 06/07/20 05:30 89 27 118/64 (82) 92 89 06/07/20 05:00 85 26 125/94 (104) 97 85 06/07/20 04:36 82 30 100 06/07/20 04:30 72 29 119/91 (100) 98 72 06/07/20 04:16 140/96 06/07/20 04:00 Mechanical Ventilator Mechanical Ventilator 06/07/20 04:00 100 06/07/20 04:00 140/96 06/07/20 04:00 72 28 140/96 (111) 100 72 06/07/20 04:00 72 06/07/20 03:30 68 30 147/61 (89) 100 68 06/07/20 03:21 68 30 100 06/07/20 03:00 76 29 125/81 (96) 97 76 06/07/20 03:00 125/81 06/07/20 02:30 99.5 71 29 133/53 (79) 100 71 06/07/20 02:00 63 29 96/60 (72) 99 63 06/07/20 02:00 96/60 06/07/20 01:30 69 26 118/68 (85) 99 69 06/07/20 01:00 71 28 87/55 (66) 99 71 06/07/20 01:00 107/89 06/07/20 01:00 67 30 107/89 (95) 98 67 06/07/20 00:38 73 30 100 06/07/20 00:30 76 29 124/65 (84) 99 76 06/07/20 00:00 82 29 118/59 (78) 97 82 06/07/20 00:00 100 06/07/20 00:00 82 06/07/20 00:00 118/59 06/07/20 00:00 Mechanical Ventilator Mechanical Ventilator 06/06/20 23:45 100.9 06/06/20 23:34 128/80 06/06/20 23:30 74 27 128/80 (96) 99 74 06/06/20 23:00 100.9 71 28 112/85 (94) 99 71 06/06/20 23:00 112/85 06/06/20 22:45 91 30 100 06/06/20 22:30 75 28 103/63 (76) 99 75 06/06/20 22:27 74 80/53 06/06/20 22:00 77 28 101/59 (73) 98 77 06/06/20 22:00 101/59 06/06/20 21:47 67 20 143/108 (120) 98 67 06/06/20 21:30 80 29 76/49 (58) 98 80 06/06/20 21:00 105/54 06/06/20 21:00 81 30 105/54 (71) 98 81 06/06/20 20:34 81 30 100 06/06/20 20:30 78 30 83/62 (69) 98 78 06/06/20 20:15 99.1 76 29 110/73 (85) 98 76 06/06/20 20:00 76 29 113/62 (79) 98 76 06/06/20 20:00 113/62 06/06/20 20:00 Mechanical Ventilator Mechanical Ventilator 06/06/20 19:00 77 30 111/68 (82) 94 06/06/20 19:00 111/68 06/06/20 18:52 72 30 94 Mechanical Ventilator 100 81 30 100 06/06/20 18:45 85 27 96/63 (74) 91 06/06/20 18:30 79 30 110/67 (81) 92 06/06/20 18:30 100 06/06/20 18:15 98 27 94/64 (74) 89 06/06/20 18:00 115/72 06/06/20 18:00 76 30 115/72 (86) 91 06/06/20 17:45 78 30 121/78 (92) 94 06/06/20 17:30 79 45 108/36 (60) 94 06/06/20 17:15 77 27 91/51 (64) 97 06/06/20 17:00 83 20 109/47 (67) 94 06/06/20 17:00 109/47 06/06/20 16:45 84 20 102/57 (72) 90 06/06/20 16:30 82 20 103/43 (63) 93 06/06/20 16:15 82 19 98/66 (77) 97 06/06/20 16:00 98.9 68 20 83/54 (64) 97 06/06/20 16:00 100 06/06/20 16:00 70 06/06/20 16:00 83/54 06/06/20 16:00 Mechanical Ventilator Mechanical Ventilator 06/06/20 15:59 68 20 70 06/06/20 15:45 68 20 91/51 (64) 97 06/06/20 15:30 74 20 118/74 (89) 97 06/06/20 15:15 70 20 111/45 (67) 97 06/06/20 15:00 119/80 06/06/20 15:00 65 20 119/80 (93) 97 06/06/20 14:45 67 20 109/39 (62) 96 06/06/20 14:30 67 20 103/53 (70) 95 06/06/20 14:15 67 20 99/57 (71) 95 06/06/20 14:00 96/56 06/06/20 14:00 64 20 96/56 (69) 94 06/06/20 13:59 126/29 06/06/20 13:45 74 20 126/29 (61) 95 06/06/20 13:30 73 21 124/78 (93) 96 06/06/20 13:15 74 20 96/52 (67) 94 06/06/20 13:00 83 20 94/68 (77) 97 06/06/20 13:00 94/68 06/06/20 12:45 76 20 154/112 (126) 100 06/06/20 12:30 87 20 118/102 (107) 94 06/06/20 12:15 112 45 102/84 (90) 86 06/06/20 12:00 98.5 114 38 94/31 (52) 87 06/06/20 12:00 94/31 06/06/20 12:00 100 06/06/20 12:00 Mechanical Ventilator Mechanical Ventilator 06/06/20 11:45 79 25 111/48 (69) 98 06/06/20 11:40 80 06/06/20 11:30 76 20 92/47 (62) 93 06/06/20 11:15 80 25 104/42 (62) 93 06/06/20 11:00 99/44 06/06/20 11:00 83 24 99/44 (62) 89 06/06/20 10:45 86 24 92/43 (59) 91 06/06/20 10:45 91 27 70 06/06/20 10:30 80 23 95/41 (59) 93 06/06/20 10:15 79 22 100/41 (60) 94 06/06/20 10:00 100/37 06/06/20 10:00 81 23 100/37 (58) 91 06/06/20 09:45 78 22 107/45 (65) 93 06/06/20 09:30 85 23 109/49 (69) 91 Intake and Output 06/06/20 06/07/20 19:00 07:00 Intake Total 3756.13 ml 1747.205 ml Output Total 1690 ml 550 ml Balance 2066.13 ml 1197.205 ml Free Water 20 ml IV Total 3696.13 ml 1667.205 ml Tube Feeding 40 ml 80 ml Output Urine Total 1690 ml 550 ml # Bowel Movements 5 1 Laboratory Tests 06/06/20 10:43: Arterial Blood pH 7.272L, Arterial Blood Partial Pressure CO2 36.7, Arterial Blood Partial Pressure O2 50.6L, Arterial Blood HCO3 16.6*L, Arterial Blood Oxygen Saturation 84.2*L, Arterial Blood Base Excess -9.5*L, Jonathan Test Positive 06/06/20 19:30: Arterial Blood pH 7.358, Arterial Blood Partial Pressure CO2 33.2L, Arterial Blood Partial Pressure O2 60.4L, Arterial Blood HCO3 18.3L, Arterial Blood Oxygen Saturation 92.6L, Arterial Blood Base Excess -6.4L, Jonathan Test Positive 06/07/20 05:49: White Blood Count 17.0H, Red Blood Count 3.73L, Hemoglobin 12.8, Hematocrit 39.5 , Mean Corpuscular Volume 106H, Mean Corpuscular Hemoglobin 34.2H, Mean Corpuscular Hemoglobin Concent 32.3, Red Cell Distribution Width 13.6, Platelet Count 180, Mean Platelet Volume 6.9, Neutrophils (%) (Auto) 83.9H, Lymphocytes ( %) (Auto) 7.2L, Monocytes (%) (Auto) 7.5, Eosinophils (%) (Auto) 0.6, Basophils (%) (Auto) 0.8, Sodium Level 135L, Potassium Level 3.7, Chloride Level 106, Carbon Dioxide Level 19L, Anion Gap 10, Blood Urea Nitrogen 14, Creatinine 1.9H , Estimat Glomerular Filtration Rate 27.2, Glucose Level 122H, Calcium Level 7.8L, Phosphorus Level 2.7, Magnesium Level 1.8, Total Bilirubin 0.5, Aspartate Amino Transf (AST/SGOT) 32, Alanine Aminotransferase (ALT/SGPT) 8L, Alkaline Phosphatase 74, Total Protein 5.3L, Albumin 1.7L, Globulin 3.6, Albumin/ Globulin Ratio 0.5L, Random Vancomycin Level 6.7 06/07/20 08:10: Arterial Blood pH 7.305L, Arterial Blood Partial Pressure CO2 33.5L, Arterial Blood Partial Pressure O2 77.3, Arterial Blood HCO3 16.3*L, Arterial Blood Oxygen Saturation 95.9, Arterial Blood Base Excess -9.0L, Jonathan Test Positive Height (Feet): 5 Height (Inches): 3.00 Weight (Pounds): 159 General Appearance: no apparent distress EENT: other - On ventilator Cardiovascular: normal rate Respiratory/Chest: decreased breath sounds Abdomen: distended Keron Pitt MD Jun 07, 2020 09:27
--- NOTE | 2020-06-07 09:27 | Diagnostic Imaging Report ---
EXAM: XR Chest, 1 View CLINICAL HISTORY: SOB TECHNIQUE: Frontal view of the chest. COMPARISON: 05/28/20 FINDINGS: Lungs: Since the prior study, there has been slight interval worsening of severe diffuse alveolar traits throughout the right lung with improving moderate diffuse left lung infiltrate. Pleural space: There is been slight increase in mild bilateral pleural effusions. No pneumothorax. Heart: Unremarkable. No cardiomegaly. Mediastinum: Unremarkable. Bones/joints: Unremarkable. Tubes, lines and devices: There is an endotracheal tube in good position. IMPRESSION: 1. Since the prior study, there has been slight interval worsening of severe diffuse alveolar traits throughout the right lung with improving moderate diffuse left lung infiltrate. 2. There is been slight increase in mild bilateral pleural effusions.
--- NOTE | 2020-06-07 09:58 | NUR ---
NURSE NOTES: Spoke to Carla Merchant NP. Dr. Pantoja on the case. Patient does not need bicarb at this time. Will continue plan of care.
--- NOTE | 2020-06-07 10:16 | Pulmonolgy Critical Care Note ---
Critical Care - Asmt/Plan Assessment/Plan: ASSESSMENT s/p cardiopulmonary arrest Acute hypoxemic respiratory failure requiring intubation Sepsis with shock Persistent CONS bacteremia Pneumonia ANIRUDH LEANN Down syndrome Hypothyroidism Seizure disorder Stool OB positive Diarrhea PLAN OF CARE ICU vent support, pulmonary toilet with CPT and HHN ( COVID x 3 NGT) start IV Hydrocortisone fup with CXR and ABG in am Venous duplex BLE NGT, stool OB + off Heparin given stool OB + on SCD HH remain stable pressors; titrate to keep mean arterial BP > 65 now on Levo and Wiliam cardio consult pending also on midodrine and periodic albumin boluses Echo with pEF 65% need Lasix, however hemodynamically unstable on 2 pressors- per cardio abx as per ID recs COVID-19 x3 NGT BCX 05/30 and 05/31 + CONS BCX 06/03 NGTD, BCX 06/04 + CONS initial SCX + with Strep group G, repeated SCX NGT UCX NGT Echo no evidence of vegetation abx regimen broadened as per ID recs: daptomycin, meropenem, azithromycin, micafungin diarrhea x3 06/06 stool C dif ordered, was cancelled due to hospital policy needing approval by ID nurse and show design supervisor if sx > 3 days in the hospital creat worsened due to Vanco s/p IVF avoid nephrotoxic correct electrolytes as needed renal ultrasound nephro follows creat 1.9 this am GI prophylaxis continue levothyroxine , TSH within normal limits seizure precautions, continue Depakote supportive care photography assistant consulted re necrotic toe case discussed and evaluated by supervising physician Critical Care - Objective Last 24 Hour Vital Signs Date Time Temp Pulse Resp B/P (MAP) Pulse Ox O2 Delivery O2 Flow Rate FiO2 06/07/20 09:30 70 30 125/51 (75) 100 06/07/20 09:15 74 29 125/62 (83) 100 06/07/20 09:00 70 30 124/53 (76) 100 06/07/20 08:45 71 30 125/65 (85) 100 06/07/20 08:30 73 29 138/71 (93) 100 06/07/20 08:30 144/109 06/07/20 08:15 75 27 144/109 (121) 100 06/07/20 08:00 100 06/07/20 08:00 Mechanical Ventilator Mechanical Ventilator 06/07/20 08:00 98.6 66 29 145/67 (93) 99 06/07/20 07:54 70 30 100 06/07/20 07:45 67 30 142/65 (90) 99 06/07/20 07:30 66 30 148/106 (120) 98 06/07/20 07:15 67 30 145/58 (87) 99 06/07/20 07:00 69 30 144/62 (89) 99 06/07/20 06:30 99.1 73 30 142/59 (86) 100 73 06/07/20 06:00 77 30 138/67 (90) 99 77 06/07/20 05:30 89 27 118/64 (82) 92 89 06/07/20 05:00 85 26 125/94 (104) 97 85 06/07/20 04:36 82 30 100 06/07/20 04:30 72 29 119/91 (100) 98 72 06/07/20 04:16 140/96 06/07/20 04:00 Mechanical Ventilator Mechanical Ventilator 06/07/20 04:00 100 06/07/20 04:00 140/96 06/07/20 04:00 72 28 140/96 (111) 100 72 06/07/20 04:00 72 06/07/20 03:30 68 30 147/61 (89) 100 68 06/07/20 03:21 68 30 100 06/07/20 03:00 76 29 125/81 (96) 97 76 06/07/20 03:00 125/81 06/07/20 02:30 99.5 71 29 133/53 (79) 100 71 06/07/20 02:00 63 29 96/60 (72) 99 63 06/07/20 02:00 96/60 06/07/20 01:30 69 26 118/68 (85) 99 69 06/07/20 01:00 71 28 87/55 (66) 99 71 06/07/20 01:00 107/89 06/07/20 01:00 67 30 107/89 (95) 98 67 06/07/20 00:38 73 30 100 06/07/20 00:30 76 29 124/65 (84) 99 76 06/07/20 00:00 82 29 118/59 (78) 97 82 06/07/20 00:00 100 06/07/20 00:00 82 06/07/20 00:00 118/59 06/07/20 00:00 Mechanical Ventilator Mechanical Ventilator 06/06/20 23:45 100.9 06/06/20 23:34 128/80 06/06/20 23:30 74 27 128/80 (96) 99 74 06/06/20 23:00 100.9 71 28 112/85 (94) 99 71 06/06/20 23:00 112/85 06/06/20 22:45 91 30 100 06/06/20 22:30 75 28 103/63 (76) 99 75 06/06/20 22:27 74 80/53 06/06/20 22:00 77 28 101/59 (73) 98 77 06/06/20 22:00 101/59 06/06/20 21:47 67 20 143/108 (120) 98 67 06/06/20 21:30 80 29 76/49 (58) 98 80 06/06/20 21:00 105/54 06/06/20 21:00 81 30 105/54 (71) 98 81 06/06/20 20:34 81 30 100 06/06/20 20:30 78 30 83/62 (69) 98 78 06/06/20 20:15 99.1 76 29 110/73 (85) 98 76 06/06/20 20:00 76 29 113/62 (79) 98 76 06/06/20 20:00 113/62 06/06/20 20:00 Mechanical Ventilator Mechanical Ventilator 06/06/20 19:00 77 30 111/68 (82) 94 06/06/20 19:00 111/68 06/06/20 18:52 72 30 94 Mechanical Ventilator 100 81 30 100 06/06/20 18:45 85 27 96/63 (74) 91 06/06/20 18:30 79 30 110/67 (81) 92 06/06/20 18:30 100 06/06/20 18:15 98 27 94/64 (74) 89 06/06/20 18:00 115/72 06/06/20 18:00 76 30 115/72 (86) 91 06/06/20 17:45 78 30 121/78 (92) 94 06/06/20 17:30 79 45 108/36 (60) 94 06/06/20 17:15 77 27 91/51 (64) 97 06/06/20 17:00 83 20 109/47 (67) 94 06/06/20 17:00 109/47 06/06/20 16:45 84 20 102/57 (72) 90 06/06/20 16:30 82 20 103/43 (63) 93 06/06/20 16:15 82 19 98/66 (77) 97 06/06/20 16:00 98.9 68 20 83/54 (64) 97 06/06/20 16:00 100 06/06/20 16:00 70 06/06/20 16:00 83/54 06/06/20 16:00 Mechanical Ventilator Mechanical Ventilator 06/06/20 15:59 68 20 70 06/06/20 15:45 68 20 91/51 (64) 97 06/06/20 15:30 74 20 118/74 (89) 97 06/06/20 15:15 70 20 111/45 (67) 97 06/06/20 15:00 119/80 06/06/20 15:00 65 20 119/80 (93) 97 06/06/20 14:45 67 20 109/39 (62) 96 06/06/20 14:30 67 20 103/53 (70) 95 06/06/20 14:15 67 20 99/57 (71) 95 06/06/20 14:00 96/56 06/06/20 14:00 64 20 96/56 (69) 94 06/06/20 13:59 126/29 06/06/20 13:45 74 20 126/29 (61) 95 06/06/20 13:30 73 21 124/78 (93) 96 06/06/20 13:15 74 20 96/52 (67) 94 06/06/20 13:00 83 20 94/68 (77) 97 06/06/20 13:00 94/68 06/06/20 12:45 76 20 154/112 (126) 100 06/06/20 12:30 87 20 118/102 (107) 94 06/06/20 12:15 112 45 102/84 (90) 86 06/06/20 12:00 98.5 114 38 94/31 (52) 87 06/06/20 12:00 94/31 06/06/20 12:00 100 06/06/20 12:00 Mechanical Ventilator Mechanical Ventilator 06/06/20 11:45 79 25 111/48 (69) 98 06/06/20 11:40 80 06/06/20 11:30 76 20 92/47 (62) 93 06/06/20 11:15 80 25 104/42 (62) 93 06/06/20 11:00 99/44 06/06/20 11:00 83 24 99/44 (62) 89 06/06/20 10:45 86 24 92/43 (59) 91 06/06/20 10:45 91 27 70 06/06/20 10:30 80 23 95/41 (59) 93 06/06/20 10:15 79 22 100/41 (60) 94 Status: other - on vent Objective: Status: sedated, on Vent AC 500-30-100% PEEP5 Condition: critical HEENT: atraumatic, normocephalic, face with Down features, OP with ET in place , intact Lungs: scattered rhonchi , isolated crackles at bases Abdomen: soft, non-tender, feeding tube Decubiti: +1 edema BLE Micro: Microbiology Date/Time Source Procedure Growth Status 06/04/20 16:15 Blood Blood Culture - Preliminary Staphylococcus Sp Coag Neg Resulted 06/04/20 16:05 Blood Blood Culture - Preliminary NO GROWTH AFTER 48 HOURS Resulted 06/06/20 09:30 Abdomen Gram Stain - Final Resulted 06/06/20 09:30 Abdomen Wound Culture Pending Resulted Accucheck: 131 Critical Care - Subjective ROS Limited/Unobtainable: Yes Interval Events: steff settings titrated 06/06, since was desaturated, now on AC 30 with FiO2 100% additional pressors -Wiliam added since levo was maxed up fevers last night, currently afebrile, leukocytosis with small trend down CXR this am w/out much change, ABG with mild met acidosis persistent CONS bacteremia Condition: critical IV Access: central - femoral CL intact FI02: 100 Vent Support Breath Rate: 30 Vent Support Mode: AC Vent Tidal Volume: 500 Sputum Amount: Scant PEEP: 5.0 PIP: 46 Drips: Levo 30 mcg/min, Wiliam 60 mcg/min Tube Feeding Amount: 0 I&O: Intake and Output 06/06/20 06/07/20 19:00 07:00 Intake Total 3756.13 ml 1747.205 ml Output Total 1690 ml 550 ml Balance 2066.13 ml 1197.205 ml Free Water 20 ml IV Total 3696.13 ml 1667.205 ml Tube Feeding 40 ml 80 ml Output Urine Total 1690 ml 550 ml # Bowel Movements 5 1 CXR: CXR 06/07 -> 1.slight interval worsening of severe diffuse alveolar traits throughout the right lung with improving moderate diffuse left lung infiltrate. 2. There is been slight increase in mild bilateral pleural effusions. ET-Tube: 7.5 ET Position: 22 Carla Jj ASSISTANT MANAGER AIRSIDE OPERATIONS Jun 07, 2020 10:16
--- NOTE | 2020-06-07 11:02 | NUR ---
NURSE NOTES: Seen by Dr. Bailey and assessed patient. Ordered Lotrimin 1% BID x 21days on bilateral foot. Will continue plan of care.
[2020-06-07] MEDS: DAPTOmycin 350 MG in NS 55 ML IV SCH (11:36)
--- NOTE | 2020-06-07 12:02 | NUR ---
NURSE NOTES: Repositioned patient. Provided oral and trach care.
[2020-06-07] MEDS: Hydrocortisone 100mg Inj IV SCH ×2 (13:03→21:39)
[2020-06-07] MEDS: Norepinephrine Bitartrate 16 MG in D5W 500ml 550 ML IV SCH ×2 (13:04→22:47)
[2020-06-07] MEDS: Micafungin 100 MG in NS 110 ML IVPB SCH (13:04)
[2020-06-07] MEDS: Phenylephrine 50 MG in D5W 245 ML IV PRN (14:00)
--- NOTE | 2020-06-07 15:50 | NUR ---
NURSE NOTES: Seen by Dr. Isaacs and assessed patient. No new orders at this time.
--- NOTE | 2020-06-07 15:52 | Consultation ---
Consult Note Consult Note Cardiology for Dr Pantjoa Full consult dictated #[id number] Brooke Isaacs MD Jun 07, 2020 15:52
--- NOTE | 2020-06-07 16:04 | Internal Med Progress Note ---
Subjective Date of Service: Jun 07, 2020 Physician Name Joni Copeland Attending Physician Elayne Allred MD Current Medications Medications (Trade) Dose Ordered Sig/Katy Route PRN Reason Start Time Stop Time Status Last Admin Dose Admin Acetaminophen (Tylenol) 650 mg Q4H PRN GT FEVER 06/03/20 11:45 07/03/20 11:44 06/06/20 23:15 Albuterol/ Ipratropium (Albuterol/ Ipratropium) 3 ml Q4H PRN HHN Shortness of Breath 06/06/20 11:30 06/11/20 11:29 Albuterol/ Ipratropium (Albuterol/ Ipratropium) 3 ml TIDRT HHN 06/06/20 13:00 06/11/20 12:59 06/07/20 15:53 Chlorhexidine Gluconate (Alla-Hex 2%) 1 applic DAILY@1999 TOPIC 06/03/20 20:00 09/01/20 19:59 06/06/20 20:17 Clotrimazole (Lotrimin) 1 applic Q12HR TOPIC 06/07/20 13:00 09/05/20 12:59 06/07/20 13:03 Daptomycin 350 mg/ Sodium Chloride 55 ml @ 100 mls/hr Q48H IV 06/05/20 11:00 06/09/20 10:59 06/07/20 11:36 Dextrose (Dextrose 50%) 25 ml Q30M PRN IV Hypoglycemia 06/03/20 11:30 08/28/20 11:29 Dextrose (Dextrose 50%) 50 ml Q30M PRN IV Hypoglycemia 06/03/20 11:30 08/28/20 11:29 Hydrocortisone (Solu-CORTEF) 100 mg EVERY 8 HOURS IV 06/07/20 14:00 09/05/20 13:59 06/07/20 13:03 Levothyroxine Sodium (Synthroid) 75 mcg DAILY GT 06/04/20 09:00 06/30/20 08:59 06/07/20 08:29 Linezolid 300 ml @ 300 mls/hr Q12H IVPB 06/06/20 15:00 06/13/20 14:59 06/07/20 14:01 Meropenem 1 gm/ Sodium Chloride 55 ml @ 110 mls/hr Q12H IVPB 06/03/20 16:00 06/08/20 15:59 06/07/20 15:43 Micafungin Sodium 100 mg/Sodium Chloride 110 ml @ 110 mls/hr Q24H IVPB 06/04/20 14:00 06/11/20 13:59 06/07/20 13:04 Midodrine (Pro-Amatine) 10 mg Q8HR GT 06/05/20 14:00 09/03/20 13:59 06/07/20 13:03 Norepinephrine Bitartrate 16 mg/ Dextrose 566 ml @ 0 mls/hr Q24H IV 06/07/20 13:00 07/07/20 12:59 06/07/20 13:04 Ondansetron HCl (Zofran) 4 mg Q6H PRN IVP Nausea & Vomiting 06/03/20 12:00 06/29/20 11:59 Pantoprazole (Protonix) 40 mg DAILY IV 06/04/20 09:00 06/30/20 08:59 06/07/20 08:29 Phenylephrine HCl 50 mg/Dextrose 250 ml @ 0 mls/hr Q24H PRN IV For hypotension 06/06/20 17:45 07/06/20 17:44 06/07/20 14:00 Polyethylene Glycol (Miralax) 17 gm DAILYPRN PRN GT Constipation 06/03/20 12:00 06/29/20 11:59 Sodium Chloride 1,000 ml @ 100 mls/hr Q10H IV 06/03/20 23:00 07/03/20 22:59 06/07/20 06:50 Valproic Acid (Depakene) 500 mg EVERY 8 HOURS GT 06/03/20 14:00 06/29/20 21:59 06/07/20 13:03 Allergies: Coded Allergies: No Known Allergies (Unverified , 10/16/18) ROS Limited/Unobtainable: Yes Subjective 59 YO F with Down's syndrome admitted with hypoxia. Now sepsis and pneumonia. Cover for Int Arturo-DR Hawk. ICU. Intubated and sedated Objective Last Vital Signs Date Time Temp Pulse Resp B/P (MAP) Pulse Ox O2 Delivery O2 Flow Rate FiO2 06/07/20 15:00 73 30 131/62 (85) 98 8/30/20 13:06 100 06/07/20 12:00 Mechanical Ventilator Mechanical Ventilator 06/07/20 12:00 98.3 06/04/20 00:00 15.0 Laboratory Tests Test 06/06/20 19:30 06/07/20 05:49 06/07/20 08:10 Arterial Blood pH 7.358 (7.350-7.450) 7.305 (7.350-7.450) Arterial Blood Partial Pressure CO2 33.2 mmHg (35.0-45.0) L 33.5 mmHg (35.0-45.0) L Arterial Blood Partial Pressure O2 60.4 mmHg (75.0-100.0) L 77.3 mmHg (75.0-100.0) Arterial Blood HCO3 18.3 mmol/L (22.0-26.0) L 16.3 mmol/L (22.0-26.0) *L Arterial Blood Oxygen Saturation 92.6 % (95-100) L 95.9 % (95-100) Arterial Blood Base Excess -6.4 (-2-2) L -9.0 (-2-2) L Jonathan Test Positive Positive White Blood Count 17.0 K/UL (4.8-10.8) H Red Blood Count 3.73 M/UL (4.20-5.40) L Hemoglobin 12.8 G/DL (12.0-16.0) Hematocrit 39.5 % (37.0-47.0) Mean Corpuscular Volume 106 FL (80-99) H Mean Corpuscular Hemoglobin 34.2 PG (27.0-31.0) H Mean Corpuscular Hemoglobin Concent 32.3 G/DL (32.0-36.0) Red Cell Distribution Width 13.6 % (11.6-14.8) Platelet Count 180 K/UL (150-450) Mean Platelet Volume 6.9 FL (6.5-10.1) Neutrophils (%) (Auto) 83.9 % (45.0-75.0) H Lymphocytes (%) (Auto) 7.2 % (20.0-45.0) L Monocytes (%) (Auto) 7.5 % (1.0-10.0) Eosinophils (%) (Auto) 0.6 % (0.0-3.0) Basophils (%) (Auto) 0.8 % (0.0-2.0) Sodium Level 135 MMOL/L (136-145) L Potassium Level 3.7 MMOL/L (3.5-5.1) Chloride Level 106 MMOL/L (98-107) Carbon Dioxide Level 19 MMOL/L (21-32) L Anion Gap 10 mmol/L (5-15) Blood Urea Nitrogen 14 mg/dL (7-18) Creatinine 1.9 MG/DL (0.55-1.30) H Estimat Glomerular Filtration Rate 27.2 mL/min (>60) Glucose Level 122 MG/DL (74-106) H Calcium Level 7.8 MG/DL (8.5-10.1) L Phosphorus Level 2.7 MG/DL (2.5-4.9) Magnesium Level 1.8 MG/DL (1.8-2.4) Total Bilirubin 0.5 MG/DL (0.2-1.0) Aspartate Amino Transf (AST/SGOT) 32 U/L (15-37) Alanine Aminotransferase (ALT/SGPT) 8 U/L (12-78) L Alkaline Phosphatase 74 U/L (46-116) Total Protein 5.3 G/DL (6.4-8.2) L Albumin 1.7 G/DL (3.4-5.0) L Globulin 3.6 g/dL Albumin/Globulin Ratio 0.5 (1.0-2.7) L Random Vancomycin Level 6.7 ug/mL Microbiology Date/Time Source Procedure Growth Status 06/04/20 16:15 Blood Blood Culture - Preliminary Staphylococcus Sp Coag Neg Resulted 06/04/20 16:05 Blood Blood Culture - Preliminary NO GROWTH AFTER 48 HOURS Resulted 06/06/20 09:30 Abdomen Gram Stain - Final Resulted 06/06/20 09:30 Abdomen Wound Culture Pending Resulted Intake and Output 06/06/20 06/07/20 19:00 07:00 Intake Total 3756.13 ml 1943.755 ml Output Total 1690 ml 550 ml Balance 2066.13 ml 1393.755 ml Free Water 20 ml IV Total 3696.13 ml 1863.755 ml Tube Feeding 40 ml 80 ml Output Urine Total 1690 ml 550 ml # Bowel Movements 5 1 Objective General Appearance: WD/WN, no apparent distress, alert EENT: PERRL/EOMI, normal ENT inspection Neck: non-tender, normal alignment, supple, normal inspection Cardiovascular: normal peripheral pulses, normal rate, regular rhythm, no gallop/murmur, no JVD Respiratory/Chest: [facility] vent; decreased breath sounds, crackles/rales, rhonchi - bilaterally, expiratory wheezing Abdomen: normal bowel sounds, non tender, soft, no organomegaly, no mass Extremities: normal range of motion Neurologic: insurance follow up representative II-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 Continue daptomycin per ID=Dr Camejo. Pulmonary/Critical care=DR Allred. COVID NEG (2) Sepsis Assessment & Plan: Staph haemolyticus. Continue daptomycin and ceftriaxone per ID=Dr Camejo (3) Down's syndrome (4) Dysphagia Assessment & Plan: S/P PEG (5) Seizure disorder Assessment & Plan: Continue keppra and depakote (6) Hypothyroidism Assessment & Plan: Continue synthroid (7) Acute respiratory failure Assessment & Plan: Pulmonary = Dr Allred; [facility] vent Joni Copeland MD Jun 07, 2020 16:04
[2020-06-07] MEDS ORDERED: NS 275ml ONE (17:14)
[2020-06-07] MEDS ORDERED: Sterile Water Irrig 1000ml IRRIG ONE (17:14)
[2020-06-07] MEDS ORDERED: D5W 275ml ONE (17:14)
[2020-06-07] MEDS ORDERED: Tubing IV Secondary IV ONE (17:14)
--- NOTE | 2020-06-07 17:46 | NUR ---
NURSE NOTES: Bed bath given. Noted with crackle lung sounds and swollen neck area. Kept dry, clean and comfortable.
--- NOTE | 2020-06-07 18:20 | NUR ---
NURSE NOTES: Stopped fluid and tube feeding d/t s/sx of fluid overload. Paged Carla Merchant NP.
--- NOTE | 2020-06-07 19:18 | NUR ---
HAND-OFF: Report given to TAI Galvan. Endorsed plan of care.
[2020-06-07] MEDS: Dyna-Hex 2% Top Sol 2oz TOPIC SCH (19:31)
--- NOTE | 2020-06-07 19:47 | NUR ---
NURSE NOTES: PATIENT OBTUNDED, ON ETT TO VENT AC 30/TV 500/FIO2 100%/PEEP 5, O2 SATURATION 99% NOTED, HR 80'S/MIN SR, ABDOMEN SOFT, NON TENDER, G TUBE INTACT AND PATENT, JEVITY 1.2 AT 20ML/HR HELD FEEDING STATUS, F/C INTACT AND PATENT, YELLOW COLOR URINE OUTED, SCD'S TO BOTH LEGS, TLC TO LEFT FEMORAL INTACT AND PATENT, ONGOING LEVOPHED 30MCG/MIN , PHENYLEPHRINE 60MCG/MIN AND IV FLUID NS AT 100ML/HR VIA TLC, ON P200 BED, MADE LOWER BED POSITION , ON BED ALARM AND LOCKED, WILL CONTINUE TO MONITOR.
--- NOTE | 2020-06-07 21:15 | NUR ---
NURSE NOTES: LE: BP 73/38MMHG NOTED, INCREASED PHENYLEPHRINE DRIP 100MCG/MIN AT THIS TIME, WILL CONTINUE TO MONITOR.
--- NOTE | 2020-06-07 22:14 | Consultation ---
DATE OF CONSULTATION: 06/07/2020 CARDIOLOGY CONSULTATION CONSULTING PHYSICIAN: Brooke Isaacs MD. REASON FOR CONSULT: Hypotension and mild troponin elevation. HISTORY OF PRESENT ILLNESS: History is obtained from the chart as the patient is intubated and unable to give any history. The patient is a 59-year-old woman with Down syndrome and hypothyroidism, who was initially admitted, transferred from a convalescent facility on 06/01/2020 with shortness of breath. She was found to have an oxygen saturation in the 80s and was admitted for treatment of pneumonia. Her initial COVID test was negative. She suffered a respiratory arrest on the telemetry unit on 06/04/2020 and was intubated, and she is now on the ventilator and has had progressive hypotension currently requiring two pressors, Levophed at 28 mcg and Wiliam-Synephrine at 40 mcg. She is noted to have bilateral diffuse infiltrates on chest x-ray. Troponin was 0.057. EKG showed sinus rhythm with right bundle-branch block. She has no previous history of cardiac disease and an echo done on admission showed normal left ventricular function, EF 65%, and no significant valve lesions. MEDICATIONS: Hydrocortisone 100 mg IV every 8 hours, norepinephrine and phenylephrine titrated to mean arterial pressure of greater than or equal to 65, linezolid q.12 hours, DuoNeb three times a day as needed, ProAmatine 10 mg every 8 hours per G-tube, daptomycin 350 mg every 48 hours, micafungin 100 mg every 24 hours, Synthroid 75 mcg daily per G-tube, Protonix 40 mg daily intravenously, meropenem 1 g IV q.12 hours, valproic acid 500 mg every 12 hours, Zofran as needed, and Tylenol as needed. ALLERGIES: No known drug allergies. PAST MEDICAL HISTORY: As noted above. History of Down's syndrome, history of hypothyroidism, history of percutaneous gastrostomy tube placement. REVIEW OF SYSTEMS: Not obtainable from the patient or chart. PHYSICAL EXAMINATION: VITAL SIGNS: Blood pressure is 131/62, pulse 73 and regular, respiratory rate 30, and temperature 98.3. GENERAL: The patient is intubated and unresponsive on the ventilator. HEENT: Endotracheal tube in place. Pupils are equal, round, and reactive to light. NECK: Supple. Jugular venous pressure is about 5 cm. LUNGS: Coarse breath sounds bilaterally. Fair air movement. HEART: Regular S1 and S2 with distant heart sounds. No murmurs or S3. ABDOMEN: Obese, soft, nontender. No palpable mass. EXTREMITIES: There is 2+ pitting edema of the distal upper and lower extremities bilaterally. LABORATORY DATA: Sodium 146, potassium 3.4, chloride 110, bicarbonate 22, BUN 19, and creatinine 2.2. Hemoglobin is 12.8, hematocrit 39, white blood count 17,100, and platelets 180,000. Cultures, blood culture from 06/04/2020, 1 positive for coag-negative Staph aureus. Blood cultures from 05/31/2020 and 1 from 06/04/2020 are positive for coag-negative staph. COVID screen was negative on 06/03/2020. Chest x-ray shows bilateral diffuse infiltrates, possible right pleural effusion. EKG from 05/30/2020 showed normal sinus rhythm, 69 beats per minute, left axis and right bundle-branch block. ASSESSMENT AND RECOMMENDATIONS: The patient is a 59-year-old woman with Down syndrome and hypothyroidism, who presents with bilateral pneumonia, ARDS, and septic shock. She did have a mild troponin elevation of 0.057 on 06/04/2020, which has not been repeated and has a proBNP of 20,015. However, in the setting of renal insufficiency this may not reflect congestive heart failure. Her elevated troponin is likely due to demand ischemia in the setting of respiratory failure and hypotension, would favor continuing on pressor support, titrating Levophed and Wiliam-Synephrine as needed to maintain MAP greater than 65. We would consider ultrasound of the right lung to determine if she might benefit from thoracentesis. Her prognosis overall appears poor. Dr. Pantoja will continue to follow her and make further recommendations based on her clinical course. Brooke Isaacs M.D. DR: GAYE JOB#: [id number] CC:
--- NOTE | 2020-06-07 23:47 | NUR ---
NURSE NOTES: VSS WITH LEVOPHED 30MCG/MIN AND PHENYLEPHRINE 100MCG/MIN AT THIS TIME, WILL CONTINUE TO MONITOR.
[2020-06-08] VITALS (74 sets, daily range): BP systolic 87–159; BP diastolic 19–108
[2020-06-08] MEDS: Phenylephrine 50 MG in D5W 245 ML IV PRN (01:49)
--- NOTE | 2020-06-08 02:15 | NUR ---
NURSE NOTES: PATIENT ASLEEP STATUS, RESPONSE TO TACTILE STIMULI, WILL CONTINUE PLAN OF CARE.
--- NOTE | 2020-06-08 02:45 | Consultation ---
DATE OF CONSULTATION: 06/07/2020 CONSULTING PHYSICIAN: Chencho Bailey DPM REFERRING PHYSICIAN: Elayne Allred MD REASON FOR CONSULTATION: Laceration to the right foot. HISTORY OF PRESENT ILLNESS: This is a 59-year-old patient with a history of Down syndrome, seen in the ICU at [facility] for cellulitis and ulceration to the right foot. Patient is bedbound and. PAST MEDICAL HISTORY: Per PCP, Dr. Allred. PODIATRY EXAMINATION: VASCULAR: Dorsalis pedis is palpable 1/4 bilaterally, noted to be swollen. Capillary filling time is less than 5 seconds. NEUROLOGICAL: Could not be assessed due to patient's current condition. MUSCULOSKELETAL: Full evaluation could not be done due to patient's bed-bound status. Patient is contracted. She was noted to be contracted as well at the MPJ and PIPJ consistent with hammertoe deformity and bunion deformity bilaterally. DERMATOLOGICAL: Attention was directed to the right hallux where a discoloration, minimal necrotic tissue is noted at the tip of the toe, stable. No sign of cellulitis, drainage, or discharge. No purulent matter. No probing or undermining was identified. The plantar foot skin was identified of scaly red patches with wound clean and erythema was identified consistent with fungal infection. ASSESSMENT AND PLAN: Bed-bound patient with history of Down syndrome identified with fungal infection to the bilateral feet. Order was written for clotrimazole cream to be applied to feet bilaterally b.i.d. x21 days. Order was written for application of Betadine to the tip of the right second toe daily as needed. No further treatment needed at this time. Chencho Bailey D.P.M DR: ZAIRE JOB#: [id number] CC: [facility]
--- NOTE | 2020-06-08 03:33 | NUR ---
NURSE NOTES: MORNING CARE AND ORAL CARE WAS DONE, NO BM STATUS.
[2020-06-08] MEDS: Meropenem 1 GM in NS 55 ML IVPB SCH ×2 (03:51→17:27)
--- NOTE | 2020-06-08 05:20 | NUR ---
NURSE NOTES: ONGOING PHENYLEPHRINE 80MCG/MIN VIA TLC, WILL CONTINUE TO MONITOR.
[2020-06-08] MEDS: Hydrocortisone 100mg Inj IV SCH ×3 (05:38→22:43)
[2020-06-08] MEDS: Midodrine 10mg tab GT SCH ×3 (05:38→22:44)
[2020-06-08] MEDS: Valproic Acid 250mg/5ml Liquid GT SCH ×3 (05:39→22:44)
[2020-06-08 06:32] LABS: HEMATOCRIT 37.9 % (37.0-47.0); HEMOGLOBIN 12.3 G/DL (12.0-16.0); MEAN CORPUSCULAR VOLUME 105 FL (80-99); PLATELET COUNT 134 K/UL (150-450); RED BLOOD COUNT 3.62 M/UL (4.20-5.40); RED CELL DISTRIBUTION WIDTH 13.6 % (11.6-14.8); WHITE BLOOD COUNT 16.4 K/UL (4.8-10.8)
--- NOTE | 2020-06-08 06:40 | NUR ---
NURSE NOTES: ONGOING LEVOPHED 28MCG/MIN AND PHENYLEPHRINE 60MCG/MIN VIA TLC, NO ACUTE DISTRESS NOTED AT THIS SHIFT.
[2020-06-08 06:59] LABS: ANION GAP 12 mmol/L (5-15); BLOOD UREA NITROGEN 17 mg/dL (7-18); CALCIUM 8.5 MG/DL (8.5-10.1); CARBON DIOXIDE 18 MMOL/L (21-32); CHLORIDE 104 MMOL/L (98-107); CREATININE 1.9 MG/DL (0.55-1.30); POTASSIUM 4.4 MMOL/L (3.5-5.1); SODIUM 134 MMOL/L (136-145)
[2020-06-08] MEDS: Albuterol/Ipratropium 3ml neb HHN SCH ×3 (07:04→20:22)
--- NOTE | 2020-06-08 07:22 | NUR ---
NURSE HAND-OFF REPORT: Latest Vital Signs: Temperature 98.9 , Pulse 81 , B/P 130 /60 , Respiratory Rate 30 , O2 SAT 100 , Mechanical Ventilator, O2 Flow Rate 15.0 . Vital Sign Comment: EKG Rhythm: Sinus Rhythm Rhythm change?: N MD Notified?: - MD Response: Latest Osorio Fall Score: 50 Fall Risk: High Risk Safety Measures: Call light Within Reach, Bed Alarm Zone 2, Side Rails Side Rails x3, Bed position Low and Locked. Fall Precautions: Yellow Socks Door Sign Patient Fall Education Report given to Ally FUCHS RN.
--- NOTE | 2020-06-08 07:25 | NUR ---
NURSE NOTES: Patient stable AOx0 with no s/sx of pain or distress. RR even and unlabored through ETT tube 7.5 lip line 22. Vent settings AC 30 500mL 100% P5. Cardiac sounds benign. BL lung sounds rhoncus. Pitting edema +2 on BL hands and feet with weak pulses to dorsalis pedis. Gregorio draining well to gravity. LT Femoral TLC line dressing dry and intact, patent. IV fluids and Levophed at 28mcg and Wiliam infusing. Bowel sounds present. Gastric tube in place with no residual. Side rails upx2 call light within reach, bed low and locked. Will continue to monitor.
[2020-06-08] MEDS: Pantoprazole Inj IV SCH (07:49)
[2020-06-08] MEDS: Norepinephrine Bitartrate 16 MG in D5W 500ml 484 ML IV SCH ×2 (07:49→08:10)
--- NOTE | 2020-06-08 08:46 | NUR ---
RD ASSESSMENT & RECOMMENDATIONS SEE CARE ACTIVITY FOR COMPLETE ASSESSMENT DAILY ESTIMATED NEEDS: Needs based on CRITICAL CARE, 50kg 22-27 kcals/kg [id number] total kcals 1.25-2 g protein/kg 63-100 g total protein 25-30 mL/kg [id number] total fluid mLs NUTRITION DIAGNOSIS: Swallowing difficulty r/t dysphagia as evdienced by pt w/ Downs Syndrome, PEG dep for all nutritional needs, now intubated, pressor support, ICU status. CURRENT TF: Jevity 1.2 @30ml/hr -> held ENTERAL NUTRITION RECOMMENDATIONS: WITH HEMODYNAMIC STBAILITY: VITAL AF 1.2 @50ml/hr x22 hrs to provide 1100ml, 1320 kcal, 83g pro, 892ml free H2O - As medically able, start VITAL 1.2 @20ml/hr for critical care and high pro needs. - Advance as tolerated to goal when hemodynamically stable - Hold TF 1 hr before and after synthroid meds - Flush per , HOB over 30 degrees. WITHOUT HEMODYANAMIC STABILITY, rec trophic feeds of Vital AF 1.2 @ 10ml/hr ADDITIONAL RECOMMENDATIONS: 1) Ht of 61 inches per SNF; recalibrate bed scale for accurate CBW 2) Monitor BG closely w/ Solucortef, need for NISS 3) Monitor hemodynamic stability: on pressors x 2 (Levo @ 28, PHE @ 60) -> rec trophic feeds while not hemodynamically stable 4) Wound healing: add Vit C 250mg QD, LEIDY in 4oz H2O BID via GT 5) Monitor lytes, replete as needed
--- NOTE | 2020-06-08 09:30 | Nephrology Progress Note ---
Assessment/Plan Problem List: (1) LEANN (acute kidney injury) (2) Respiratory failure requiring intubation (3) Down's syndrome (4) Seizure disorder (5) Hypothyroidism Assessment Acute renal failure, likely due to hypotension Acute respiratory distress, hypoxia Seizure disorder Hypothyroidism Down syndrome Full code Fluid challenge with IV fluids and albumin Midodrine for BP above 100 systolic Check TSH level Check Correct level Monitor renal parameters Urine studies Per orders Plan June 08: Continues to be intubated. Labs reviewed. Serum creatinine 1.9 unchanged. Blood pressure more stable. Off 1 of the pressors. Continue to monitor renal parameters. Continue per consultants. Patient now on hydrocortisone 100 mg every 8 hours. Will decrease IV fluid. Normal saline down to 50 cc an hour. June 07: Intubated. Labs reviewed. Creatinine 1.9 unchanged. Continue same treatment plan. Per consultants. Overall poor prognosis since the patient remains on pressors and her pulmonary status is worsening. June 06: Remains intubated. Labs reviewed. Creatinine 1.9. Blood pressure systolic 90s. Continue per consultants. June 05: Remains intubated. Labs reviewed. Serum creatinine lower to 2. Vancomycin level lower. Remains hypotensive on pressors. Will increase midodrine to 10 mg every 8 hours. Continue per consultants. Continue to monitor renal parameters. June 04: Patient now in ICU. Intubated. On pressors. Labs reviewed. Will increase midodrine. Aim to keep blood pressure over 100 systolic. Will give albumin bolus. Will check vancomycin level which was elevated when checked previously on June 01. Will monitor renal parameters. Continue per consultants. Subjective ROS Limited/Unobtainable: Yes Objective Objective Last 24 Hour Vital Signs Date Time Temp Pulse Resp B/P (MAP) Pulse Ox O2 Delivery O2 Flow Rate FiO2 06/08/20 08:10 150/64 06/08/20 07:04 95 30 100 06/08/20 07:00 77 30 148/61 (90) 99 06/08/20 06:45 77 30 134/78 (96) 99 06/08/20 06:30 82 30 130/60 (83) 100 06/08/20 06:30 130/60 06/08/20 06:20 81 30 149/49 (82) 100 06/08/20 06:15 82 30 149/108 (122) 100 06/08/20 06:15 149/108 06/08/20 06:00 136/77 06/08/20 06:00 97 31 136/77 (96) 97 06/08/20 05:34 107 32 100 06/08/20 05:30 96 29 115/75 (88) 92 06/08/20 05:00 82 30 159/96 (117) 98 06/08/20 05:00 159/96 06/08/20 04:30 85 30 138/93 (108) 95 06/08/20 04:00 100 06/08/20 04:00 98.9 82 29 113/96 (102) 98 06/08/20 04:00 75 06/08/20 04:00 113/96 06/08/20 04:00 Mechanical Ventilator Mechanical Ventilator 06/08/20 03:45 78 30 130/76 (94) 100 06/08/20 03:30 73 30 100 06/08/20 03:30 73 30 149/69 (95) 100 06/08/20 03:15 78 30 132/57 (82) 100 06/08/20 03:04 89 27 119/103 (108) 99 06/08/20 03:00 123/106 06/08/20 03:00 88 29 123/106 (112) 96 06/08/20 02:45 88 23 110/87 (95) 93 06/08/20 02:30 68 30 124/52 (76) 99 06/08/20 02:15 81 29 106/75 (85) 100 06/08/20 02:00 78 30 107/66 (80) 100 06/08/20 02:00 107/66 06/08/20 01:49 84 129/85 06/08/20 01:45 82 30 103/90 (94) 99 06/08/20 01:30 90 27 129/85 (100) 97 06/08/20 01:15 82 30 115/54 (74) 100 06/08/20 01:00 117/60 06/08/20 01:00 79 30 117/60 (79) 99 06/08/20 00:50 79 30 100 06/08/20 00:45 87 30 98/84 (89) 97 06/08/20 00:30 83 29 113/97 (102) 100 06/08/20 00:15 79 30 104/88 (93) 100 06/08/20 00:00 Mechanical Ventilator Mechanical Ventilator 06/08/20 00:00 87 06/08/20 00:00 105/85 06/08/20 00:00 99.0 87 28 105/85 (92) 96 06/08/20 00:00 100 06/07/20 23:45 87 30 112/94 (100) 100 06/07/20 23:30 88 29 109/70 (83) 98 06/07/20 23:15 94 26 97/51 (66) 97 06/07/20 23:00 83 29 109/69 (82) 99 06/07/20 23:00 109/69 06/07/20 22:55 83 30 100 06/07/20 22:47 106/57 06/07/20 22:45 81 30 106/57 (73) 99 06/07/20 22:30 85 30 91/67 (75) 99 06/07/20 22:15 89 28 91/66 (74) 94 06/07/20 22:00 103/89 06/07/20 22:00 85 26 103/89 (94) 99 06/07/20 21:45 80 30 83/65 (71) 100 06/07/20 21:30 79 30 107/44 (65) 99 06/07/20 21:21 83 30 99/60 (73) 100 06/07/20 21:15 83 30 73/38 (50) 99 06/07/20 21:15 73/38 06/07/20 21:10 87 30 97/53 (68) 93 06/07/20 21:00 88/63 06/07/20 21:00 94 26 88/63 (71) 94 06/07/20 20:45 86 28 88/66 (73) 100 06/07/20 20:36 80 30 100 06/07/20 20:30 84 30 93/51 (65) 100 06/07/20 20:15 80 30 102/59 (73) 100 06/07/20 20:00 Mechanical Ventilator Mechanical Ventilator 06/07/20 20:00 106/71 06/07/20 20:00 100 06/07/20 20:00 98.5 82 30 106/71 (83) 100 06/07/20 19:45 82 30 93/69 (77) 99 06/07/20 19:30 85 28 117/91 (100) 100 06/07/20 19:20 81 06/07/20 19:07 80 30 100 Mechanical Ventilator 100 84 30 100 06/07/20 19:00 101/53 06/07/20 19:00 80 30 98/65 (76) 100 06/07/20 18:45 98/65 06/07/20 18:30 84 30 93/60 (71) 100 06/07/20 18:30 103/65 06/07/20 18:15 93/60 06/07/20 18:00 91 30 90/54 (66) 98 06/07/20 18:00 90/54 06/07/20 17:30 98.6 99 26 117/96 (103) 93 06/07/20 17:18 89 30 100 06/07/20 17:00 93/73 06/07/20 17:00 88 30 91/29 (49) 95 06/07/20 16:30 87 30 100/69 (79) 96 06/07/20 16:00 Mechanical Ventilator Mechanical Ventilator 06/07/20 16:00 100 06/07/20 16:00 97 30 123/39 (67) 97 06/07/20 16:00 123/39 06/07/20 16:00 88 06/07/20 15:30 77 30 125/48 (73) 99 06/07/20 15:29 69 30 98 Mechanical Ventilator 100 78 30 100 06/07/20 15:00 131/62 06/07/20 15:00 73 30 131/62 (85) 98 06/07/20 14:45 130/50 06/07/20 14:30 73 30 131/32 (65) 98 06/07/20 14:30 131/32 06/07/20 14:15 113/64 06/07/20 14:00 73 30 113/64 (80) 98 06/07/20 14:00 112/86 06/07/20 14:00 75 110/61 06/07/20 13:30 75 30 67/14 (31) 98 06/07/20 13:06 71 30 100 06/07/20 13:04 126/62 06/07/20 13:00 126/62 06/07/20 13:00 72 30 126/62 (83) 98 06/07/20 12:30 72 30 138/62 (87) 98 06/07/20 12:00 100 06/07/20 12:00 Mechanical Ventilator Mechanical Ventilator 06/07/20 12:00 98.3 72 30 110/45 (66) 98 06/07/20 12:00 96/68 06/07/20 12:00 69 06/07/20 11:30 74 30 100 06/07/20 11:28 81 30 113/92 (99) 99 06/07/20 11:00 103/60 06/07/20 11:00 76 29 115/66 (82) 98 06/07/20 10:30 78 29 112/68 (83) 98 06/07/20 10:00 80/52 06/07/20 10:00 79 30 80/52 (61) 96 06/07/20 09:30 70 30 125/51 (75) 100 Intake and Output 06/07/20 06/08/20 19:00 07:00 Intake Total 2894.80 ml 2280.920 ml Output Total 1130 ml 910 ml Balance 1764.80 ml 1370.920 ml Free Water 30 ml IV Total 2744.80 ml 2140.920 ml Tube Feeding 120 ml 60 ml Other 80 ml Output Urine Total 1130 ml 910 ml # Bowel Movements 1 Laboratory Tests 06/08/20 06:09: White Blood Count 16.4H, Red Blood Count 3.62L, Hemoglobin 12.3, Hematocrit 37.9 , Mean Corpuscular Volume 105H, Mean Corpuscular Hemoglobin 34.1H, Mean Corpuscular Hemoglobin Concent 32.5, Red Cell Distribution Width 13.6, Platelet Count 134L, Mean Platelet Volume 7.2, Neutrophils (%) (Auto) , Lymphocytes (%) ( Auto) , Monocytes (%) (Auto) , Eosinophils (%) (Auto) , Basophils (%) (Auto) , Neutrophils % (Manual) [Pending], Lymphocytes % (Manual) [Pending], Platelet Estimate [Pending], Platelet Morphology [Pending], Sodium Level 134L, Potassium Level 4.4, Chloride Level 104, Carbon Dioxide Level 18L, Anion Gap 12, Blood Urea Nitrogen 17, Creatinine 1.9H, Estimat Glomerular Filtration Rate 27.2, Glucose Level 142H, Calcium Level 8.5 06/08/20 07:04: Arterial Blood pH 7.327L, Arterial Blood Partial Pressure CO2 27.7L, Arterial Blood Partial Pressure O2 95.6, Arterial Blood HCO3 14.2*L, Arterial Blood Oxygen Saturation 97.5, Arterial Blood Base Excess -10.3*L, Jonathan Test Positive Height (Feet): 5 Height (Inches): 3.00 Weight (Pounds): 177 General Appearance: no apparent distress EENT: other - Trach to vent Cardiovascular: normal rate Respiratory/Chest: decreased breath sounds Abdomen: soft Keron Pitt MD Jun 08, 2020 09:30
--- NOTE | 2020-06-08 10:09 | NUR ---
RADIOLOGY DEPT., CHEST X-RAY DONE.-P.DYE
--- NOTE | 2020-06-08 10:30 | NUR ---
NURSE NOTES: Levophed titrated down to 26mcg.
--- NOTE | 2020-06-08 10:45 | NUR ---
NURSE NOTES: Levophed titrated down to 24mcg.
--- NOTE | 2020-06-08 11:00 | NUR ---
NURSE NOTES: Levophed titrated down to 22mcg.
--- NOTE | 2020-06-08 11:12 | Pulmonolgy Critical Care Note ---
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 with: nurses, consultants, case operatorescrow manager - Objective Last 24 Hour Vital Signs Date Time Temp Pulse Resp B/P (MAP) Pulse Ox O2 Delivery O2 Flow Rate FiO2 06/08/20 09:31 63 30 100 06/08/20 09:30 71 30 114/79 (91) 100 06/08/20 09:00 74 30 108/76 (87) 100 06/08/20 08:30 70 30 133/62 (85) 100 06/08/20 08:10 150/64 06/08/20 08:00 100 06/08/20 08:00 73 06/08/20 08:00 97.8 72 30 146/63 (90) 100 06/08/20 08:00 Mechanical Ventilator Mechanical Ventilator 06/08/20 07:30 76 30 143/63 (89) 99 06/08/20 07:04 95 30 100 06/08/20 07:00 77 30 148/61 (90) 99 06/08/20 06:45 77 30 134/78 (96) 99 06/08/20 06:30 82 30 130/60 (83) 100 06/08/20 06:30 130/60 06/08/20 06:20 81 30 149/49 (82) 100 06/08/20 06:15 82 30 149/108 (122) 100 06/08/20 06:15 149/108 06/08/20 06:00 136/77 06/08/20 06:00 97 31 136/77 (96) 97 06/08/20 05:34 107 32 100 06/08/20 05:30 96 29 115/75 (88) 92 06/08/20 05:00 82 30 159/96 (117) 98 06/08/20 05:00 159/96 06/08/20 04:30 85 30 138/93 (108) 95 06/08/20 04:00 100 06/08/20 04:00 98.9 82 29 113/96 (102) 98 06/08/20 04:00 75 06/08/20 04:00 113/96 06/08/20 04:00 Mechanical Ventilator Mechanical Ventilator 06/08/20 03:45 78 30 130/76 (94) 100 06/08/20 03:30 73 30 100 06/08/20 03:30 73 30 149/69 (95) 100 06/08/20 03:15 78 30 132/57 (82) 100 06/08/20 03:04 89 27 119/103 (108) 99 06/08/20 03:00 123/106 06/08/20 03:00 88 29 123/106 (112) 96 06/08/20 02:45 88 23 110/87 (95) 93 06/08/20 02:30 68 30 124/52 (76) 99 06/08/20 02:15 81 29 106/75 (85) 100 06/08/20 02:00 78 30 107/66 (80) 100 06/08/20 02:00 107/66 06/08/20 01:49 84 129/85 06/08/20 01:45 82 30 103/90 (94) 99 06/08/20 01:30 90 27 129/85 (100) 97 06/08/20 01:15 82 30 115/54 (74) 100 06/08/20 01:00 117/60 06/08/20 01:00 79 30 117/60 (79) 99 06/08/20 00:50 79 30 100 06/08/20 00:45 87 30 98/84 (89) 97 06/08/20 00:30 83 29 113/97 (102) 100 06/08/20 00:15 79 30 104/88 (93) 100 06/08/20 00:00 Mechanical Ventilator Mechanical Ventilator 06/08/20 00:00 87 06/08/20 00:00 105/85 06/08/20 00:00 99.0 87 28 105/85 (92) 96 06/08/20 00:00 100 06/07/20 23:45 87 30 112/94 (100) 100 06/07/20 23:30 88 29 109/70 (83) 98 06/07/20 23:15 94 26 97/51 (66) 97 06/07/20 23:00 83 29 109/69 (82) 99 06/07/20 23:00 109/69 06/07/20 22:55 83 30 100 06/07/20 22:47 106/57 06/07/20 22:45 81 30 106/57 (73) 99 06/07/20 22:30 85 30 91/67 (75) 99 06/07/20 22:15 89 28 91/66 (74) 94 06/07/20 22:00 103/89 06/07/20 22:00 85 26 103/89 (94) 99 06/07/20 21:45 80 30 83/65 (71) 100 06/07/20 21:30 79 30 107/44 (65) 99 06/07/20 21:21 83 30 99/60 (73) 100 06/07/20 21:15 83 30 73/38 (50) 99 06/07/20 21:15 73/38 06/07/20 21:10 87 30 97/53 (68) 93 06/07/20 21:00 88/63 06/07/20 21:00 94 26 88/63 (71) 94 06/07/20 20:45 86 28 88/66 (73) 100 06/07/20 20:36 80 30 100 06/07/20 20:30 84 30 93/51 (65) 100 06/07/20 20:15 80 30 102/59 (73) 100 06/07/20 20:00 Mechanical Ventilator Mechanical Ventilator 06/07/20 20:00 106/71 06/07/20 20:00 100 06/07/20 20:00 98.5 82 30 106/71 (83) 100 06/07/20 19:45 82 30 93/69 (77) 99 06/07/20 19:30 85 28 117/91 (100) 100 06/07/20 19:20 81 06/07/20 19:07 80 30 100 Mechanical Ventilator 100 84 30 100 06/07/20 19:00 101/53 06/07/20 19:00 80 30 98/65 (76) 100 8/30/20 18:45 98/65 8/30/20 18:30 84 30 93/60 (71) 100 06/07/20 18:30 103/65 06/07/20 18:15 93/60 06/07/20 18:00 91 30 90/54 (66) 98 06/07/20 18:00 90/54 06/07/20 17:30 98.6 99 26 117/96 (103) 93 06/07/20 17:18 89 30 100 06/07/20 17:00 93/73 06/07/20 17:00 88 30 91/29 (49) 95 06/07/20 16:30 87 30 100/69 (79) 96 06/07/20 16:00 Mechanical Ventilator Mechanical Ventilator 06/07/20 16:00 100 06/07/20 16:00 97 30 123/39 (67) 97 06/07/20 16:00 123/39 06/07/20 16:00 88 06/07/20 15:30 77 30 125/48 (73) 99 06/07/20 15:29 69 30 98 Mechanical Ventilator 100 78 30 100 06/07/20 15:00 131/62 06/07/20 15:00 73 30 131/62 (85) 98 06/07/20 14:45 130/50 06/07/20 14:30 73 30 131/32 (65) 98 06/07/20 14:30 131/32 06/07/20 14:15 113/64 06/07/20 14:00 73 30 113/64 (80) 98 06/07/20 14:00 112/86 06/07/20 14:00 75 110/61 06/07/20 13:30 75 30 67/14 (31) 98 06/07/20 13:06 71 30 100 06/07/20 13:04 126/62 06/07/20 13:00 126/62 06/07/20 13:00 72 30 126/62 (83) 98 06/07/20 12:30 72 30 138/62 (87) 98 06/07/20 12:00 100 06/07/20 12:00 Mechanical Ventilator Mechanical Ventilator 06/07/20 12:00 98.3 72 30 110/45 (66) 98 06/07/20 12:00 96/68 8/30/20 12:00 69 06/07/20 11:30 74 30 100 06/07/20 11:28 81 30 113/92 (99) 99 Status: sedated Condition: critical, grave HEENT: atraumatic Neck: full ROM Heart: HR/BP stable, HR/BP unstable Abdomen: non-tender, feeding tube Extremities: edema Decubiti: location Micro: Microbiology Date/Time Source Procedure Growth Status 06/06/20 11:50 Blood Blood Culture - Preliminary NO GROWTH AFTER 24 HOURS Resulted 06/06/20 11:40 Blood Blood Culture - Preliminary NO GROWTH AFTER 24 HOURS Resulted 06/06/20 09:30 Abdomen Gram Stain - Final Resulted 06/06/20 09:30 Wound Culture - Preliminary Yeast Species Resulted Accucheck: 131 Critical Care - Subjective Condition: critical, unchanged FI02: 100 Vent Support Breath Rate: 30 Vent Support Mode: AC Vent Tidal Volume: 500 Sputum Amount: Scant PEEP: 5.0 PIP: 37 Tube Feeding Amount: 20 I&O: Intake and Output 06/07/20 06/08/20 19:00 07:00 Intake Total 2894.80 ml 2280.920 ml Output Total 1130 ml 910 ml Balance 1764.80 ml 1370.920 ml Free Water 30 ml IV Total 2744.80 ml 2140.920 ml Tube Feeding 120 ml 60 ml Other 80 ml Output Urine Total 1130 ml 910 ml # Bowel Movements 1 ET-Tube: 7.5 ET Position: 22 Labs: Laboratory Tests Test 06/08/20 06:09 06/08/20 07:04 White Blood Count 16.4 K/UL (4.8-10.8) H Red Blood Count 3.62 M/UL (4.20-5.40) L Hemoglobin 12.3 G/DL (12.0-16.0) Hematocrit 37.9 % (37.0-47.0) Mean Corpuscular Volume 105 FL (80-99) H Mean Corpuscular Hemoglobin 34.1 PG (27.0-31.0) H Mean Corpuscular Hemoglobin Concent 32.5 G/DL (32.0-36.0) Red Cell Distribution Width 13.6 % (11.6-14.8) Platelet Count 134 K/UL (150-450) L Mean Platelet Volume 7.2 FL (6.5-10.1) Neutrophils (%) (Auto) % (45.0-75.0) Lymphocytes (%) (Auto) % (20.0-45.0) Monocytes (%) (Auto) % (1.0-10.0) Eosinophils (%) (Auto) % (0.0-3.0) Basophils (%) (Auto) % (0.0-2.0) Differential Total Cells Counted 100 Neutrophils % (Manual) 85 % (45-75) H Lymphocytes % (Manual) 10 % (20-45) L Monocytes % (Manual) 5 % (1-10) Eosinophils % (Manual) 0 % (0-3) Basophils % (Manual) 0 % (0-2) Band Neutrophils 0 % (0-8) Platelet Estimate Decreased L Platelet Morphology Normal Anisocytosis 1+ Macrocytosis 1+ Sodium Level 134 MMOL/L (136-145) L Potassium Level 4.4 MMOL/L (3.5-5.1) Chloride Level 104 MMOL/L (98-107) Carbon Dioxide Level 18 MMOL/L (21-32) L Anion Gap 12 mmol/L (5-15) Blood Urea Nitrogen 17 mg/dL (7-18) Creatinine 1.9 MG/DL (0.55-1.30) H Estimat Glomerular Filtration Rate 27.2 mL/min (>60) Glucose Level 142 MG/DL (74-106) H Calcium Level 8.5 MG/DL (8.5-10.1) Arterial Blood pH 7.327 (7.350-7.450) Arterial Blood Partial Pressure CO2 27.7 mmHg (35.0-45.0) L Arterial Blood Partial Pressure O2 95.6 mmHg (75.0-100.0) Arterial Blood HCO3 14.2 mmol/L (22.0-26.0) *L Arterial Blood Oxygen Saturation 97.5 % (95-100) Arterial Blood Base Excess -10.3 (-2-2) *L Jonathan Test Positive Elayne Allred MD Jun 08, 2020 11:12
--- NOTE | 2020-06-08 11:15 | NUR ---
NURSE NOTES: Levophed titrated down to 20mcg.
--- NOTE | 2020-06-08 11:28 | Infectious Diseases Prog Note ---
Assessment/Plan ASSESSMENT: sp code blue 06/03 Septic Shock Fever Leukocytosis; improving -06/03 u/a no pyuria Pneumonia.- COVID 19 neg x3 Acute hypoxic resp failure on VM> NRB 15l 100%; hypoxic on ABG> now VDRF 06/03 - Fio2 80% >100% 06/05 06/05 CXR: Increasing left upper lobe dense consolidation and likely increasing bilateral pleural fluid. Persistent diffuse dense consolidation elsewhere -06/03 sp cx normal resp marie -06/02 CXR: Increased atelectasis of the right lung, since prior exam of 3 days earlier. New or increased right pleural effusion. Increased left basilar consolidation and/or pleural fluid -COVID Rapid PCR neg 05/31, 05/31, 06/03 -05/30 spc x Group G strep -05/30 CXR: Reduced lung volumes. Patchy bilateral predominantly interstitial pulmonary opacities. Could be from edema and/or pneumonia. There is a broader differential. Persistent, high grade bacteremia- r/o endocarditis -05/30 Bcx 4/4 sets S. haemolyticus; 05/31 Bcx 3/4 S/ epi; 06/04 Bcx 1.4 S. warnerri; 06/06 Bcx NTD -2d echo: no vegetaions seen R/o probable UTI ua/ wbc 10-15, nit neg, leuk +1; ucx Neg LEANN; worsening -supratherapeutic vanco levels -Seizure disorder. - Hypothyroidism. - Down syndrome. History of PEG tube placement. SD resident PLAN: Cont linezolid #3 given persistent GPC bacteremia (double coverage, though not ideal for bacteremia) and pneumonia (dapto doesn't cover for pneumonia) -monitor plts Cont Daptomycin #7(abx d #10) for GPC bacteremia in view of LEANN [monitor CK, was 51 on 06/03] Cont Meropenem#6 (abx d #10) given resp decompensation Cont Micafungin #5 f/u Repeat BCx given persistent bacteremia CT chest when stable enough, not currently given on FiO2 100% and pressors If pleural effusions, should be tapped to r/o empyema, send for bacterial cx as well as cell count and diff F/u cx of exudate around G-tube Trend GIB (black stools) 06/05 SP Azithromycin #7/7 8/26 SP Ceftriaxone #2 06/02 SP IV Vancomycin #4, Zosyn #4 05/30 SP Cefepime x1, Flagyl x1 - Monitor CBC, BMP. -f/u Cocci ab, CrAg .f/u Repeat cx - COVID neg x3; will continue isolation for now given ongoing hypoxia and fever - Monitor chest x-ray. - Monitor the patient's clinical course and labs. Based on those, we will do further recommendation. Thank you, Dr. Allred, for allowing me to participate in the care of this patient. I will follow the patient with you at this hospitalization. Discussed with RN Subjective Allergies: Coded Allergies: No Known Allergies (Unverified , 10/16/18) afebrile >24hrs remains intubated, Fio2 100% on levo at 28 and james at 60 Objective Last 24 Hour Vital Signs Date Time Temp Pulse Resp B/P (MAP) Pulse Ox O2 Delivery O2 Flow Rate FiO2 06/08/20 09:31 63 30 100 06/08/20 09:30 71 30 114/79 (91) 100 06/08/20 09:00 74 30 108/76 (87) 100 06/08/20 08:30 70 30 133/62 (85) 100 06/08/20 08:10 150/64 06/08/20 08:00 100 06/08/20 08:00 73 06/08/20 08:00 97.8 72 30 146/63 (90) 100 06/08/20 08:00 Mechanical Ventilator Mechanical Ventilator 06/08/20 07:30 76 30 143/63 (89) 99 06/08/20 07:04 95 30 100 06/08/20 07:00 77 30 148/61 (90) 99 06/08/20 06:45 77 30 134/78 (96) 99 06/08/20 06:30 82 30 130/60 (83) 100 06/08/20 06:30 130/60 06/08/20 06:20 81 30 149/49 (82) 100 06/08/20 06:15 82 30 149/108 (122) 100 06/08/20 06:15 149/108 06/08/20 06:00 136/77 06/08/20 06:00 97 31 136/77 (96) 97 06/08/20 05:34 107 32 100 06/08/20 05:30 96 29 115/75 (88) 92 06/08/20 05:00 82 30 159/96 (117) 98 06/08/20 05:00 159/96 06/08/20 04:30 85 30 138/93 (108) 95 06/08/20 04:00 100 06/08/20 04:00 98.9 82 29 113/96 (102) 98 06/08/20 04:00 75 06/08/20 04:00 113/96 06/08/20 04:00 Mechanical Ventilator Mechanical Ventilator 06/08/20 03:45 78 30 130/76 (94) 100 06/08/20 03:30 73 30 100 06/08/20 03:30 73 30 149/69 (95) 100 06/08/20 03:15 78 30 132/57 (82) 100 06/08/20 03:04 89 27 119/103 (108) 99 06/08/20 03:00 123/106 06/08/20 03:00 88 29 123/106 (112) 96 06/08/20 02:45 88 23 110/87 (95) 93 06/08/20 02:30 68 30 124/52 (76) 99 06/08/20 02:15 81 29 106/75 (85) 100 06/08/20 02:00 78 30 107/66 (80) 100 06/08/20 02:00 107/66 06/08/20 01:49 84 129/85 06/08/20 01:45 82 30 103/90 (94) 99 06/08/20 01:30 90 27 129/85 (100) 97 06/08/20 01:15 82 30 115/54 (74) 100 06/08/20 01:00 117/60 06/08/20 01:00 79 30 117/60 (79) 99 06/08/20 00:50 79 30 100 06/08/20 00:45 87 30 98/84 (89) 97 06/08/20 00:30 83 29 113/97 (102) 100 06/08/20 00:15 79 30 104/88 (93) 100 06/08/20 00:00 Mechanical Ventilator Mechanical Ventilator 06/08/20 00:00 87 06/08/20 00:00 105/85 06/08/20 00:00 99.0 87 28 105/85 (92) 96 06/08/20 00:00 100 06/07/20 23:45 87 30 112/94 (100) 100 06/07/20 23:30 88 29 109/70 (83) 98 06/07/20 23:15 94 26 97/51 (66) 97 06/07/20 23:00 83 29 109/69 (82) 99 06/07/20 23:00 109/69 06/07/20 22:55 83 30 100 06/07/20 22:47 106/57 06/07/20 22:45 81 30 106/57 (73) 99 06/07/20 22:30 85 30 91/67 (75) 99 06/07/20 22:15 89 28 91/66 (74) 94 06/07/20 22:00 103/89 06/07/20 22:00 85 26 103/89 (94) 99 06/07/20 21:45 80 30 83/65 (71) 100 06/07/20 21:30 79 30 107/44 (65) 99 06/07/20 21:21 83 30 99/60 (73) 100 06/07/20 21:15 83 30 73/38 (50) 99 06/07/20 21:15 73/38 06/07/20 21:10 87 30 97/53 (68) 93 06/07/20 21:00 88/63 06/07/20 21:00 94 26 88/63 (71) 94 06/07/20 20:45 86 28 88/66 (73) 100 06/07/20 20:36 80 30 100 06/07/20 20:30 84 30 93/51 (65) 100 06/07/20 20:15 80 30 102/59 (73) 100 06/07/20 20:00 Mechanical Ventilator Mechanical Ventilator 06/07/20 20:00 106/71 06/07/20 20:00 100 06/07/20 20:00 98.5 82 30 106/71 (83) 100 06/07/20 19:45 82 30 93/69 (77) 99 06/07/20 19:30 85 28 117/91 (100) 100 06/07/20 19:20 81 06/07/20 19:07 80 30 100 Mechanical Ventilator 100 84 30 100 06/07/20 19:00 101/53 06/07/20 19:00 80 30 98/65 (76) 100 06/07/20 18:45 98/65 06/07/20 18:30 84 30 93/60 (71) 100 06/07/20 18:30 103/65 06/07/20 18:15 93/60 06/07/20 18:00 91 30 90/54 (66) 98 06/07/20 18:00 90/54 06/07/20 17:30 98.6 99 26 117/96 (103) 93 06/07/20 17:18 89 30 100 06/07/20 17:00 93/73 06/07/20 17:00 88 30 91/29 (49) 95 06/07/20 16:30 87 30 100/69 (79) 96 06/07/20 16:00 Mechanical Ventilator Mechanical Ventilator 06/07/20 16:00 100 06/07/20 16:00 97 30 123/39 (67) 97 06/07/20 16:00 123/39 06/07/20 16:00 88 06/07/20 15:30 77 30 125/48 (73) 99 06/07/20 15:29 69 30 98 Mechanical Ventilator 100 78 30 100 06/07/20 15:00 131/62 06/07/20 15:00 73 30 131/62 (85) 98 06/07/20 14:45 130/50 06/07/20 14:30 73 30 131/32 (65) 98 06/07/20 14:30 131/32 06/07/20 14:15 113/64 06/07/20 14:00 73 30 113/64 (80) 98 06/07/20 14:00 112/86 06/07/20 14:00 75 110/61 06/07/20 13:30 75 30 67/14 (31) 98 06/07/20 13:06 71 30 100 06/07/20 13:04 126/62 06/07/20 13:00 126/62 06/07/20 13:00 72 30 126/62 (83) 98 06/07/20 12:30 72 30 138/62 (87) 98 06/07/20 12:00 100 06/07/20 12:00 Mechanical Ventilator Mechanical Ventilator 06/07/20 12:00 98.3 72 30 110/45 (66) 98 06/07/20 12:00 96/68 06/07/20 12:00 69 06/07/20 11:30 74 30 100 06/07/20 11:28 81 30 113/92 (99) 99 Height (Feet): 5 Height (Inches): 3.00 Weight (Pounds): 177 HEENT: No pale conjunctivae. No icterus. ETT in place NECK: No lymphadenopathy. CHEST: Coarse breathing sounds. HEART: S1 and S2. ABDOMEN: Soft. PEG tube in place. EXTREMITIES: No cyanosis at this time . Microbiology Date/Time Source Procedure Growth Status 06/06/20 11:50 Blood Blood Culture - Preliminary NO GROWTH AFTER 24 HOURS Resulted 06/06/20 11:40 Blood Blood Culture - Preliminary NO GROWTH AFTER 24 HOURS Resulted 06/06/20 09:30 Abdomen Gram Stain - Final Resulted 06/06/20 09:30 Wound Culture - Preliminary Yeast Species Resulted Laboratory Tests Test 06/08/20 06:09 06/08/20 07:04 White Blood Count 16.4 K/UL (4.8-10.8) H Red Blood Count 3.62 M/UL (4.20-5.40) L Hemoglobin 12.3 G/DL (12.0-16.0) Hematocrit 37.9 % (37.0-47.0) Mean Corpuscular Volume 105 FL (80-99) H Mean Corpuscular Hemoglobin 34.1 PG (27.0-31.0) H Mean Corpuscular Hemoglobin Concent 32.5 G/DL (32.0-36.0) Red Cell Distribution Width 13.6 % (11.6-14.8) Platelet Count 134 K/UL (150-450) L Mean Platelet Volume 7.2 FL (6.5-10.1) Neutrophils (%) (Auto) % (45.0-75.0) Lymphocytes (%) (Auto) % (20.0-45.0) Monocytes (%) (Auto) % (1.0-10.0) Eosinophils (%) (Auto) % (0.0-3.0) Basophils (%) (Auto) % (0.0-2.0) Differential Total Cells Counted 100 Neutrophils % (Manual) 85 % (45-75) H Lymphocytes % (Manual) 10 % (20-45) L Monocytes % (Manual) 5 % (1-10) Eosinophils % (Manual) 0 % (0-3) Basophils % (Manual) 0 % (0-2) Band Neutrophils 0 % (0-8) Platelet Estimate Decreased L Platelet Morphology Normal Anisocytosis 1+ Macrocytosis 1+ Sodium Level 134 MMOL/L (136-145) L Potassium Level 4.4 MMOL/L (3.5-5.1) Chloride Level 104 MMOL/L (98-107) Carbon Dioxide Level 18 MMOL/L (21-32) L Anion Gap 12 mmol/L (5-15) Blood Urea Nitrogen 17 mg/dL (7-18) Creatinine 1.9 MG/DL (0.55-1.30) H Estimat Glomerular Filtration Rate 27.2 mL/min (>60) Glucose Level 142 MG/DL (74-106) H Calcium Level 8.5 MG/DL (8.5-10.1) Arterial Blood pH 7.327 (7.350-7.450) Arterial Blood Partial Pressure CO2 27.7 mmHg (35.0-45.0) L Arterial Blood Partial Pressure O2 95.6 mmHg (75.0-100.0) Arterial Blood HCO3 14.2 mmol/L (22.0-26.0) *L Arterial Blood Oxygen Saturation 97.5 % (95-100) Arterial Blood Base Excess -10.3 (-2-2) *L Jonathan Test Positive Current Medications Medications (Trade) Dose Ordered Sig/Katy Route PRN Reason Start Time Stop Time Status Last Admin Dose Admin Acetaminophen (Tylenol) 650 mg Q4H PRN GT FEVER 06/03/20 11:45 07/03/20 11:44 06/06/20 23:15 Albuterol/ Ipratropium (Albuterol/ Ipratropium) 3 ml Q4H PRN HHN Shortness of Breath 06/06/20 11:30 06/11/20 11:29 Albuterol/ Ipratropium (Albuterol/ Ipratropium) 3 ml TIDRT HHN 06/06/20 13:00 06/11/20 12:59 06/08/20 07:04 Chlorhexidine Gluconate (Alla-Hex 2%) 1 applic DAILY@1999 TOPIC 06/03/20 20:00 09/01/20 19:59 06/07/20 19:31 Clotrimazole (Lotrimin) 1 applic Q12HR TOPIC 06/07/20 13:00 09/05/20 12:59 06/08/20 07:50 Daptomycin 350 mg/ Sodium Chloride 55 ml @ 100 mls/hr Q48H IV 06/05/20 11:00 06/13/20 10:59 06/07/20 11:36 Dextrose (Dextrose 50%) 25 ml Q30M PRN IV Hypoglycemia 06/03/20 11:30 08/28/20 11:29 Dextrose (Dextrose 50%) 50 ml Q30M PRN IV Hypoglycemia 06/03/20 11:30 08/28/20 11:29 Hydrocortisone (Solu-CORTEF) 100 mg EVERY 8 HOURS IV 06/07/20 14:00 09/05/20 13:59 06/08/20 05:38 Levothyroxine Sodium (Synthroid) 75 mcg DAILY GT 06/04/20 09:00 06/30/20 08:59 06/08/20 07:49 Linezolid 300 ml @ 300 mls/hr Q12H IVPB 06/06/20 15:00 06/13/20 14:59 06/08/20 03:12 Meropenem 1 gm/ Sodium Chloride 55 ml @ 110 mls/hr Q12H IVPB 06/03/20 16:00 06/13/20 15:59 06/08/20 03:51 Micafungin Sodium 100 mg/Sodium Chloride 110 ml @ 110 mls/hr Q24H IVPB 06/04/20 14:00 06/11/20 13:59 06/07/20 13:04 Midodrine (Pro-Amatine) 10 mg Q8HR GT 06/05/20 14:00 09/03/20 13:59 06/08/20 05:38 Norepinephrine Bitartrate 16 mg/ Dextrose 500 ml @ 0 mls/hr Q24H IV 06/08/20 07:45 07/07/20 12:59 06/08/20 08:10 Ondansetron HCl (Zofran) 4 mg Q6H PRN IVP Nausea & Vomiting 06/03/20 12:00 06/29/20 11:59 Pantoprazole (Protonix) 40 mg DAILY IV 06/04/20 09:00 06/30/20 08:59 06/08/20 07:49 Phenylephrine HCl 50 mg/Dextrose 250 ml @ 0 mls/hr Q24H PRN IV For hypotension 06/06/20 17:45 07/06/20 17:44 06/08/20 01:49 Polyethylene Glycol (Miralax) 17 gm DAILYPRN PRN GT Constipation 06/03/20 12:00 06/29/20 11:59 Sodium Chloride 1,000 ml @ 50 mls/hr Q20H IV 06/08/20 09:32 07/08/20 09:31 06/08/20 10:10 Valproic Acid (Depakene) 500 mg EVERY 8 HOURS GT 06/03/20 14:00 06/29/20 21:59 06/07/20 13:03 Suki Camejo M.D. Jun 08, 2020 11:28
--- NOTE | 2020-06-08 12:00 | NUR ---
NURSE NOTES: Levophed titrated down to 14mcg. BP 110/67 HR 68. Will wait to titrate again. Patient stable at this time.
--- NOTE | 2020-06-08 12:16 | Diagnostic Imaging Report ---
Indication: Tortuous of breath Technique: One view of the chest Comparison: 06/07/2020 Findings: Extensive bilateral interstitial and airspace disease appears similar to the prior exam. Moderate to large bilateral pleural effusions appear unchanged. Stable satisfactory position of endotracheal tube. The heart size is difficult to assess, probably enlarged Impression: Unchanged, over one day, findings as above.
[2020-06-08] MEDS ORDERED: Lidocaine 1% Plain 30 ml INJ PRN ×2 (12:36→14:41)
[2020-06-08] MEDS ORDERED: Heparin1,000 units/500ml Premix(Conc:2 units/ml) IV PRN ×2 (12:37→14:41)
--- NOTE | 2020-06-08 14:00 | NUR ---
NURSE NOTES: Patient stable at this time. No s/sx of pain or distress at this time.
[2020-06-08] MEDS: Micafungin 100 MG in NS 110 ML IVPB SCH (15:06)
--- NOTE | 2020-06-08 15:34 | NUR ---
CASE MANAGEMENT: REVIEW 06/08/20 SI: BACTEREMIA . LEANN . ACUTE RESPIRATORY FAILURE .S/P CODE BLUE 06/03 AND INTUBATED . HCAP .SEPSIS . PHX: ENCEPHALOPATHY. DOWN SYNDROME . SEIZURE DISORDER 97.8 72 30 146/63 100% ENDOTRACHEAL FiO2 100 WBC 16.4 PLT 134 CREAT 1.9 ABG: pH 7.327 CO2 27.7 HCO3 14.2 BASE EXCESS -10.3 IS: LEVOPHED GTT PROTOCOL IV DAPTOMYCIN Q48HR IV MEROPENEM BID IV AZITHROMYCIN QD IVF NS @50ML/HR IV SYNTHROID GT QAC IV DEPAKENE GT TID PRO-AMATINE GT Q6HR \: ICU [facility]: [facility] C[facility] FRO LACERATION TO FOOT IV HYDRATION WEANING OFF LEVOPHED PICC LINE TODAY
--- NOTE | 2020-06-08 16:00 | NUR ---
NURSE NOTES: Patient stable oral care performed. Patient cleaned. FIO2 dropped to 60%. VSS.
--- NOTE | 2020-06-08 16:45 | Brief Operative Note ---
Immediate Post Operative Note Operative Note Pre-op Diagnosis: needs long term acute care registered nurse IV access Procedure: PICC Surgeon: Abhijeet Last Anesthesia: local Specimen: none Complications: none Fluids: none Implant(s) used?: No Huey Last MD Jun 08, 2020 16:45
--- NOTE | 2020-06-08 16:51 | NUR ---
RADIOLOGY NOTE: LEFT UPPER EXTREMITY PICC LINE PLACEMENT BY DR. MAYRA DEAL AT [id number]. FA
--- NOTE | 2020-06-08 17:00 | NUR ---
NURSE NOTES: Levophed dropped to 12mcg. VSS.
--- NOTE | 2020-06-08 17:15 | NUR ---
NURSE NOTES: Levophed dropped to 10mcg. VSS.
--- NOTE | 2020-06-08 17:16 | Diagnostic Imaging Report ---
Indications: Needs long-term IV access Technique: Procedure performed at bedside. Procedural timeout performed. Ultrasound confirms patent compressible left distal vein. Total sterile technique, including sterile probe cover and sterile gel, sterile gloves, hand hygiene, hat, mask,, sterile gown, large sterile drape, and preparation with 2% chlorhexidine utilized. Local anesthesia with 1% lidocaine. Under real-time ultrasound guidance, puncture basilic vein using 21-gauge needle, passage 0.018 guidewire, exchange for 4 [place] peel-away sheath. 4 [place] Bard dual-lumen power PICC cut to 40 cm. It was inserted through the peel-away sheath. Peel-away sheath and guidewire removed. Catheter fixed to the skin. Both catheter ports aspirated and flushed. Patient tolerated procedure well, without immediate complication. Followup chest x-ray obtained, documents catheter tip position at the cavoatrial junction Impression: Successful bedside placement of left arm PICC under sonographic guidance, as described above.
--- NOTE | 2020-06-08 17:30 | NUR ---
NURSE NOTES: Levophed dropped to 8mcg. VSS. Will monitor at this time before changing rate. Addendum: 06/08/20 at 1935 by MIKE FUCHS RN Levophed not changed at this time. Rate still at 10mcg.
--- NOTE | 2020-06-08 18:00 | NUR ---
NURSE NOTES: LT Femoral TLC discontinued as ordered. LT UA used now for IV medications.
--- NOTE | 2020-06-08 19:30 | NUR ---
NURSE NOTES: Received pt obtunded opened eyes to pain stimuli only,orally intubated on ac mode, with 60% fio2 02 sat 95% SR on the monitor, Bp been supported with Levophed drip at 10mcg/min as well as Ns at 50ml/hr. Tolerating Jevity 1.2 at 20c/hr, residuals been acceptable Gregorio to gravity with yellowish urine moderate in amt. Pt with new JODY PICC line where IV drips infusing well. Site with drsg dry and intact. Pt with sacral redness , bilateral toes with fungal infection mds are aware with TX on. Pt also has generalized body swelling, extremities supported with pillows, padded siderails up placed on seizure precautions. Will continue to monitor.
[2020-06-08] MEDS: Dyna-Hex 2% Top Sol 2oz TOPIC SCH (19:33)
--- NOTE | 2020-06-08 19:33 | NUR ---
NURSE HAND-OFF REPORT: Latest Vital Signs: Temperature 97.5 , Pulse 72 , B/P 103 /53 , Respiratory Rate 30 , O2 SAT 96 , Mechanical Ventilator, O2 Flow Rate 15.0 . Vital Sign Comment: STABLE EKG Rhythm: Sinus Rhythm Rhythm change?: N MD Notified?: - MD Response: Latest Osorio Fall Score: 50 Fall Risk: High Risk Safety Measures: Call light Within Reach, Bed Alarm Zone 2, Side Rails Side Rails x3, Bed position Low and Locked. Fall Precautions: Yellow Socks Door Sign Patient Fall Education Report given to Grisel LUJAN. Patient stable. Plan of care endorsed. [place] [facility].
--- NOTE | 2020-06-08 19:36 | Internal Med Progress Note ---
Subjective Date of Service: Jun 08, 2020 Physician Name Joni Copeland Attending Physician Elayne Allred MD Current Medications Medications (Trade) Dose Ordered Sig/Katy Route PRN Reason Start Time Stop Time Status Last Admin Dose Admin Acetaminophen (Tylenol) 650 mg Q4H PRN GT FEVER 06/03/20 11:45 07/03/20 11:44 06/06/20 23:15 Albuterol/ Ipratropium (Albuterol/ Ipratropium) 3 ml Q4H PRN HHN Shortness of Breath 06/06/20 11:30 06/11/20 11:29 Albuterol/ Ipratropium (Albuterol/ Ipratropium) 3 ml TIDRT HHN 06/06/20 13:00 06/11/20 12:59 06/08/20 12:24 Chlorhexidine Gluconate (Alla-Hex 2%) 1 applic DAILY@1999 TOPIC 06/08/20 20:00 09/06/20 19:59 06/08/20 19:33 Clotrimazole (Lotrimin) 1 applic Q12HR TOPIC 06/07/20 13:00 09/05/20 12:59 06/08/20 07:50 Daptomycin 350 mg/ Sodium Chloride 55 ml @ 100 mls/hr Q48H IV 06/05/20 11:00 06/13/20 10:59 06/07/20 11:36 Dextrose (Dextrose 50%) 25 ml Q30M PRN IV Hypoglycemia 06/03/20 11:30 08/28/20 11:29 Dextrose (Dextrose 50%) 50 ml Q30M PRN IV Hypoglycemia 06/03/20 11:30 08/28/20 11:29 Heparin Sodium/ Sodium Chloride (Heparin 1000 units/500ml Premix) 1,000 unit ONCE PRN IV PICC 06/08/20 12:37 06/08/20 23:59 Heparin Sodium/ Sodium Chloride (Heparin 1000 units/500ml Premix) 1,000 unit ONCE PRN IV PICC 06/08/20 14:41 06/08/20 23:59 Hydrocortisone (Solu-CORTEF) 100 mg EVERY 8 HOURS IV 06/07/20 14:00 09/05/20 13:59 06/08/20 15:06 Levothyroxine Sodium (Synthroid) 75 mcg DAILY GT 06/04/20 09:00 06/30/20 08:59 06/08/20 07:49 Lidocaine HCl (Xylocaine 1% 30ml) 30 ml ONCE PRN INJ PICC 06/08/20 12:36 06/08/20 23:59 Lidocaine HCl (Xylocaine 1% 30ml) 30 ml ONCE PRN INJ PICC 06/08/20 14:41 06/08/20 23:59 Linezolid 300 ml @ 300 mls/hr Q12H IVPB 06/06/20 15:00 06/13/20 14:59 06/08/20 15:06 Meropenem 1 gm/ Sodium Chloride 55 ml @ 110 mls/hr Q12H IVPB 06/03/20 16:00 06/13/20 15:59 06/08/20 17:27 Micafungin Sodium 100 mg/Sodium Chloride 110 ml @ 110 mls/hr Q24H IVPB 06/04/20 14:00 06/11/20 13:59 06/08/20 15:06 Midodrine (Pro-Amatine) 10 mg Q8HR GT 06/05/20 14:00 09/03/20 13:59 06/08/20 15:06 Norepinephrine Bitartrate 16 mg/ Dextrose 500 ml @ 0 mls/hr Q24H IV 06/08/20 07:45 07/07/20 12:59 06/08/20 08:10 Ondansetron HCl (Zofran) 4 mg Q6H PRN IVP Nausea & Vomiting 06/03/20 12:00 06/29/20 11:59 Pantoprazole (Protonix) 40 mg DAILY IV 06/04/20 09:00 06/30/20 08:59 06/08/20 07:49 Phenylephrine HCl 50 mg/Dextrose 250 ml @ 0 mls/hr Q24H PRN IV For hypotension 06/06/20 17:45 07/06/20 17:44 06/08/20 01:49 Polyethylene Glycol (Miralax) 17 gm DAILYPRN PRN GT Constipation 06/03/20 12:00 06/29/20 11:59 Sodium Chloride 1,000 ml @ 50 mls/hr Q20H IV 06/08/20 09:32 07/08/20 09:31 06/08/20 10:10 Valproic Acid (Depakene) 500 mg EVERY 8 HOURS GT 06/03/20 14:00 06/29/20 21:59 06/08/20 15:06 Allergies: Coded Allergies: No Known Allergies (Unverified , 10/16/18) ROS Limited/Unobtainable: Yes Subjective 59 YO F with Down's syndrome admitted with hypoxia. Now sepsis and pneumonia. Cover for Int [facility]. ICU. Intubated and sedated Objective Last Vital Signs Date Time Temp Pulse Resp B/P (MAP) Pulse Ox O2 Delivery O2 Flow Rate FiO2 06/08/20 19:00 72 30 103/53 (70) 96 06/08/20 17:15 97.5 06/08/20 17:00 Mechanical Ventilator Mechanical Ventilator 06/08/20 17:00 60 06/04/20 00:00 15.0 Laboratory Tests Test 06/08/20 06:09 06/08/20 07:04 White Blood Count 16.4 K/UL (4.8-10.8) H Red Blood Count 3.62 M/UL (4.20-5.40) L Hemoglobin 12.3 G/DL (12.0-16.0) Hematocrit 37.9 % (37.0-47.0) Mean Corpuscular Volume 105 FL (80-99) H Mean Corpuscular Hemoglobin 34.1 PG (27.0-31.0) H Mean Corpuscular Hemoglobin Concent 32.5 G/DL (32.0-36.0) Red Cell Distribution Width 13.6 % (11.6-14.8) Platelet Count 134 K/UL (150-450) L Mean Platelet Volume 7.2 FL (6.5-10.1) Neutrophils (%) (Auto) % (45.0-75.0) Lymphocytes (%) (Auto) % (20.0-45.0) Monocytes (%) (Auto) % (1.0-10.0) Eosinophils (%) (Auto) % (0.0-3.0) Basophils (%) (Auto) % (0.0-2.0) Differential Total Cells Counted 100 Neutrophils % (Manual) 85 % (45-75) H Lymphocytes % (Manual) 10 % (20-45) L Monocytes % (Manual) 5 % (1-10) Eosinophils % (Manual) 0 % (0-3) Basophils % (Manual) 0 % (0-2) Band Neutrophils 0 % (0-8) Platelet Estimate Decreased L Platelet Morphology Normal Anisocytosis 1+ Macrocytosis 1+ Sodium Level 134 MMOL/L (136-145) L Potassium Level 4.4 MMOL/L (3.5-5.1) Chloride Level 104 MMOL/L (98-107) Carbon Dioxide Level 18 MMOL/L (21-32) L Anion Gap 12 mmol/L (5-15) Blood Urea Nitrogen 17 mg/dL (7-18) Creatinine 1.9 MG/DL (0.55-1.30) H Estimat Glomerular Filtration Rate 27.2 mL/min (>60) Glucose Level 142 MG/DL (74-106) H Calcium Level 8.5 MG/DL (8.5-10.1) Arterial Blood pH 7.327 (7.350-7.450) Arterial Blood Partial Pressure CO2 27.7 mmHg (35.0-45.0) L Arterial Blood Partial Pressure O2 95.6 mmHg (75.0-100.0) Arterial Blood HCO3 14.2 mmol/L (22.0-26.0) *L Arterial Blood Oxygen Saturation 97.5 % (95-100) Arterial Blood Base Excess -10.3 (-2-2) *L Jonathan Test Positive Microbiology Date/Time Source Procedure Growth Status 06/06/20 11:50 Blood Blood Culture - Preliminary NO GROWTH AFTER 24 HOURS Resulted 06/06/20 11:40 Blood Blood Culture - Preliminary NO GROWTH AFTER 24 HOURS Resulted 06/06/20 09:30 Abdomen Gram Stain - Final Resulted 06/06/20 09:30 Wound Culture - Preliminary Yeast Species Resulted Intake and Output 06/07/20 06/08/20 19:00 07:00 Intake Total 2894.80 ml 2280.920 ml Output Total 1130 ml 910 ml Balance 1764.80 ml 1370.920 ml Free Water 30 ml IV Total 2744.80 ml 2140.920 ml Tube Feeding 120 ml 60 ml Other 80 ml Output Urine Total 1130 ml 910 ml # Bowel Movements 1 Objective General Appearance: WD/WN, no apparent distress, alert EENT: PERRL/EOMI, normal ENT inspection Neck: non-tender, normal alignment, supple, normal inspection Cardiovascular: normal peripheral pulses, normal rate, regular rhythm, no gallop/murmur, no JVD Respiratory/Chest: Mech vent; decreased breath sounds, crackles/rales, rhonchi - bilaterally, expiratory wheezing Abdomen: normal bowel sounds, non tender, soft, no organomegaly, no mass Extremities: normal range of motion Neurologic: investment consultant II-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 Continue daptomycin per ID=Dr Camejo. Pulmonary/Critical care=DR Allred. COVID NEG (2) Sepsis Assessment & Plan: Staph haemolyticus. Continue daptomycin and ceftriaxone per ID=Dr Camejo (3) Down's syndrome (4) Dysphagia Assessment & Plan: S/P PEG (5) Seizure disorder Assessment & Plan: Continue keppra and depakote (6) Hypothyroidism Assessment & Plan: Continue synthroid (7) Acute respiratory failure Assessment & Plan: Pulmonary = Dr Allred; [facility] vent Joni Copeland MD Jun 08, 2020 19:36
[2020-06-08] MEDS ORDERED: Dyna-Hex 2% Top Sol 2oz TOPIC SCH (20:00)
--- NOTE | 2020-06-08 21:30 | NUR ---
NURSE NOTES: Suctioned tn whitish secretions moderate in amt. 02 sat >95%
--- NOTE | 2020-06-08 23:30 | NUR ---
NURSE NOTES: Had x1 soft brownish stool, cleaned up pt,.
[2020-06-09] VITALS (56 sets, daily range): BP systolic 66–141; BP diastolic 36–113
--- NOTE | 2020-06-09 01:30 | NUR ---
NURSE NOTES: Pt continue to tolerate GT fdg . HOB kept elevated. On aspiration precaution.
--- NOTE | 2020-06-09 02:00 | NUR ---
NURSE NOTES: BP 75/21, Increased Levophed derip up to 15mcg/min.
[2020-06-09] MEDS: Norepinephrine Bitartrate 16 MG in D5W 500ml 484 ML IV SCH (02:44)
--- NOTE | 2020-06-09 03:00 | NUR ---
NURSE NOTES: bp 141/68, Levophed drip down to 10mcg/min at this time.
[2020-06-09] MEDS: Meropenem 1 GM in NS 55 ML IVPB SCH ×2 (04:03→16:03)
--- NOTE | 2020-06-09 04:56 | NUR ---
NURSE NOTES: complete bed bath with bed changed done.
[2020-06-09 05:24] LABS: HEMATOCRIT 29.2 % (37.0-47.0); HEMOGLOBIN 9.7 G/DL (12.0-16.0); MEAN CORPUSCULAR VOLUME 103 FL (80-99); PLATELET COUNT 99 K/UL (150-450); RED BLOOD COUNT 2.83 M/UL (4.20-5.40); RED CELL DISTRIBUTION WIDTH 13.4 % (11.6-14.8); WHITE BLOOD COUNT 13.5 K/UL (4.8-10.8)
[2020-06-09 05:53] LABS: ALBUMIN 1.2 G/DL (3.4-5.0); ALBUMIN/GLOBULIN RATIO 0.3 (1.0-2.7); ALKALINE PHOSPHATASE 61 U/L (46-116); ANION GAP 10 mmol/L (5-15); ASPARTATE AMINO TRANSFERASE 20 U/L (15-37); BILIRUBIN,TOTAL 0.3 MG/DL (0.2-1.0); BLOOD UREA NITROGEN 26 mg/dL (7-18); CALCIUM 8.1 MG/DL (8.5-10.1); CARBON DIOXIDE 19 MMOL/L (21-32); CHLORIDE 106 MMOL/L (98-107); PHOSPHORUS 4.9 MG/DL (2.5-4.9); POTASSIUM 3.5 MMOL/L (3.5-5.1); SODIUM 135 MMOL/L (136-145)
[2020-06-09] MEDS: Hydrocortisone 100mg Inj IV SCH ×3 (06:13→21:34)
[2020-06-09] MEDS: Valproic Acid 250mg/5ml Liquid GT SCH ×3 (06:13→21:34)
[2020-06-09] MEDS: Midodrine 10mg tab GT SCH ×3 (06:13→21:34)
--- NOTE | 2020-06-09 06:30 | NUR ---
NURSE NOTES: Bp still labile , Pt was kept on Levophed drip at 10mcg/min.
[2020-06-09] MEDS: Albuterol/Ipratropium 3ml neb HHN SCH ×3 (07:05→19:40)
--- NOTE | 2020-06-09 07:16 | NUR ---
NURSE HAND-OFF REPORT: Latest Vital Signs: Temperature 98.8 , Pulse 82 , B/P 120 /59 , Respiratory Rate 30 , O2 SAT 96 , Mechanical Ventilator, O2 Flow Rate 15.0 . Vital Sign Comment: EKG Rhythm: Sinus Rhythm Rhythm change?: N MD Notified?: - MD Response: Latest Osorio Fall Score: 50 Fall Risk: High Risk Safety Measures: Call light Within Reach, Bed Alarm Zone 2, Side Rails Side Rails x3, Bed position Low and Locked. Fall Precautions: Yellow Socks Door Sign Patient Fall Education Report given to Vivien Doty RN.
--- NOTE | 2020-06-09 07:20 | NUR ---
NURSE NOTES: Patient received from Marci LUJAN. Patient stable AOx0 with no s/sx of pain or distress. RR even and unlabored through ETT tube 7.5 lip line 22. Vent settings AC 30 500mL 60% P5. Cardiac sounds benign. BL lung sounds rhoncus. Pitting edema +2 on BL hands and feet with weak pulses to dorsalis pedis. Gregorio draining well to gravity. LT UA PICC line dressing dry and intact, patent. IV fluids and Levophed at 10mcg infusing. Bowel sounds hyperactive. Gastric tube in place with no residual. Side rails upx2 call light within reach, bed low and locked. Will continue to monitor.
[2020-06-09 07:26] LABS: ALANINE AMINOTRANSFERASE 11 U/L (12-78); CREATININE 1.9 MG/DL (0.55-1.30)
[2020-06-09] MEDS ORDERED: NS 275ml ONE (08:15)
[2020-06-09] MEDS ORDERED: Tubing IV Secondary IV ONE (08:15)
--- NOTE | 2020-06-09 08:30 | NUR ---
NURSE NOTES: Feeding held prior to synthroid administration. Magnesium will be given now.
--- NOTE | 2020-06-09 08:45 | NUR ---
NURSE NOTES: Levophed titrated to 8mcg. VSS. Will continue to monitor.
--- NOTE | 2020-06-09 09:30 | NUR ---
NURSE NOTES: Levophed dropped to 6mcg. Will continue to monitor.
[2020-06-09] MEDS: Pantoprazole Inj IV SCH (09:43)
--- NOTE | 2020-06-09 10:00 | NUR ---
NURSE NOTES: Patient's levophed titrated down to 4mcg at 0945. Patient tolerated with VSS.
--- NOTE | 2020-06-09 11:06 | Pulmonolgy Critical Care Note ---
Critical Care - Asmt/Plan Problems: (1) Acute respiratory failure (2) Bacteremia (3) Pneumonia (4) Sepsis (5) HCAP (healthcare-associated pneumonia) (6) Seizure disorder (7) Down's syndrome Respiratory: monitor respiratory rate, adjust FIO2, CXR Cardiac: continue pressors, continue to monitor HR/BP Renal: F/U I&O, check electrolytes Infectious Disease: check cultures Gastrointestinal: continue feedings/current rate Endocrine: monitor blood sugar, check HgA1C Hematologic: transfuse if hgb<8.5 Neurologic: PRN Ativan Affect: PRN ativan Prophylaxis: Protonix, Heparin Notes Reviewed: logistics officer, cardio, 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 with: nurses, consultants, case management rnresearch project manager - Objective Last 24 Hour Vital Signs Date Time Temp Pulse Resp B/P (MAP) Pulse Ox O2 Delivery O2 Flow Rate FiO2 06/09/20 10:54 65 30 60 06/09/20 10:15 69 30 96/44 (61) 97 06/09/20 10:00 71 30 96/50 (65) 96 06/09/20 10:00 96/50 06/09/20 09:45 103/90 06/09/20 09:45 82 25 103/90 (94) 95 06/09/20 09:30 116/56 06/09/20 09:30 75 30 103/51 (68) 96 06/09/20 09:15 82 27 116/56 (76) 91 06/09/20 09:14 73 30 60 06/09/20 09:00 81 26 130/63 (85) 93 06/09/20 09:00 130/63 06/09/20 08:45 70 30 123/47 (72) 96 06/09/20 08:45 123/47 06/09/20 08:30 73 30 130/67 (88) 96 06/09/20 08:00 78 06/09/20 08:00 60 06/09/20 08:00 97.7 75 30 115/53 (73) 96 06/09/20 08:00 115/53 06/09/20 08:00 Mechanical Ventilator Mechanical Ventilator 06/09/20 07:00 82 30 99 Mechanical Ventilator 60 79 30 60 06/09/20 07:00 120/59 06/09/20 07:00 80 30 120/59 (79) 99 06/09/20 06:30 73 30 126/52 (76) 96 06/09/20 06:15 85 30 106/56 (73) 94 06/09/20 06:00 106/56 06/09/20 06:00 86 29 95/67 (76) 96 06/09/20 05:48 99 28 87/65 (72) 87 06/09/20 05:45 87 24 66/44 (51) 89 06/09/20 05:30 82 25 102/79 (87) 91 06/09/20 05:29 87 30 60 06/09/20 05:00 136/60 06/09/20 05:00 69 30 113/62 (79) 94 06/09/20 04:30 70 30 130/71 (90) 94 06/09/20 04:00 119/74 06/09/20 04:00 98.8 86 30 122/106 (111) 95 06/09/20 04:00 72 06/09/20 04:00 Mechanical Ventilator Mechanical Ventilator 06/09/20 04:00 60 06/09/20 03:30 77 30 60 06/09/20 03:30 82 29 136/69 (91) 95 06/09/20 03:00 84 29 133/73 (93) 94 06/09/20 03:00 100/60 06/09/20 02:44 80/45 06/09/20 02:30 75 26 128/90 (103) 94 06/09/20 02:00 79 30 71/36 (48) 94 06/09/20 02:00 75/21 06/09/20 01:30 84 29 141/113 (122) 93 06/09/20 01:30 79 30 60 06/09/20 01:00 79 30 120/64 (82) 95 06/09/20 01:00 129/58 06/09/20 00:30 76 30 120/54 (76) 96 06/09/20 00:00 60 06/09/20 00:00 Mechanical Ventilator Mechanical Ventilator 06/09/20 00:00 122/56 06/09/20 00:00 98.4 83 30 118/47 (70) 96 06/09/20 00:00 81 06/08/20 23:30 82 30 107/69 (82) 95 06/08/20 23:24 93 30 60 06/08/20 23:15 82 29 115/60 (78) 94 06/08/20 23:00 85 27 104/19 (47) 93 06/08/20 23:00 104/55 06/08/20 22:30 78 29 123/60 (81) 96 06/08/20 22:15 79 30 112/53 (72) 96 06/08/20 22:00 75 30 115/49 (71) 96 06/08/20 22:00 115/49 06/08/20 21:45 75 30 113/57 (75) 95 06/08/20 21:30 88 29 103/48 (66) 93 06/08/20 21:29 84 30 60 06/08/20 21:15 90 28 106/60 (75) 92 06/08/20 21:00 108/50 06/08/20 21:00 80 30 108/50 (69) 94 06/08/20 20:45 90 26 111/74 (86) 90 06/08/20 20:30 86 28 102/59 (73) 94 06/08/20 20:17 87 27 108/57 (74) 93 06/08/20 20:00 98.8 81 30 109/45 (66) 95 06/08/20 20:00 86 06/08/20 20:00 109/45 06/08/20 20:00 Mechanical Ventilator Mechanical Ventilator 06/08/20 19:45 85 30 113/60 (77) 95 06/08/20 19:30 86 29 105/62 (76) 94 06/08/20 19:30 87 30 94 Mechanical Ventilator 60 90 30 60 06/08/20 19:00 72 30 103/53 (70) 96 06/08/20 19:00 103/53 06/08/20 18:30 74 30 105/57 (73) 95 06/08/20 18:15 82 28 110/65 (80) 95 06/08/20 18:00 110/55 06/08/20 18:00 83 30 110/55 (73) 94 06/08/20 17:45 75 29 119/62 (81) 97 06/08/20 17:30 73 30 122/63 (82) 97 06/08/20 17:15 119/61 06/08/20 17:15 97.5 74 30 119/61 (80) 97 06/08/20 17:00 Mechanical Ventilator Mechanical Ventilator 06/08/20 17:00 111/61 06/08/20 17:00 60 06/08/20 17:00 74 30 111/64 (80) 96 06/08/20 16:41 84 30 60 06/08/20 16:30 84 29 116/59 (78) 96 06/08/20 16:00 93 06/08/20 16:00 83 29 123/89 (100) 97 06/08/20 16:00 123/89 06/08/20 16:00 100 06/08/20 16:00 Mechanical Ventilator Mechanical Ventilator 06/08/20 15:30 82 30 87/48 (61) 97 06/08/20 15:00 87 29 102/60 (74) 94 06/08/20 15:00 102/60 06/08/20 14:48 81 30 100 06/08/20 14:30 79 29 104/68 (80) 100 06/08/20 14:00 93/58 06/08/20 14:00 89 27 93/58 (70) 100 06/08/20 13:30 80 29 87/65 (72) 100 06/08/20 13:00 75 30 112/62 (79) 100 06/08/20 13:00 95/65 06/08/20 12:45 98.6 71 29 95/65 (75) 100 06/08/20 12:30 72 29 125/82 (96) 100 06/08/20 12:25 67 30 100 Mechanical Ventilator 100 65 30 100 06/08/20 12:00 Mechanical Ventilator Mechanical Ventilator 06/08/20 12:00 119/70 06/08/20 12:00 100 06/08/20 12:00 82 06/08/20 12:00 68 30 119/70 (86) 100 06/08/20 11:45 67 30 110/67 (81) 100 06/08/20 11:45 110/67 06/08/20 11:30 133/57 06/08/20 11:30 64 30 133/57 (82) 100 06/08/20 11:15 69 29 128/62 (84) 100 06/08/20 11:15 131/62 Status: sedated Condition: critical HEENT: atraumatic Neck: full ROM Lungs: clear Heart: HR/BP unstable Abdomen: soft Extremities: no C/C/E Micro: Microbiology Date/Time Source Procedure Growth Status 06/06/20 11:50 Blood Blood Culture - Preliminary NO GROWTH AFTER 48 HOURS Resulted 06/06/20 11:40 Blood Blood Culture - Preliminary NO GROWTH AFTER 48 HOURS Resulted Accucheck: 131 Critical Care - Subjective ROS Limited/Unobtainable: Yes Condition: critical EKG Rhythm: Sinus Rhythm FI02: 60 Vent Support Breath Rate: 30 Vent Support Mode: AC Vent Tidal Volume: 500 Sputum Amount: Small PEEP: 5.0 PIP: 34 Tube Feeding Amount: 20 I&O: Intake and Output 06/08/20 06/09/20 19:00 07:00 Intake Total 1822.0000 ml 1469.37 ml Output Total 550 ml 670 ml Balance 1272.0000 ml 799.37 ml Free Water 90 ml IV Total 1622.0000 ml 1139.37 ml Tube Feeding 200 ml 240 ml Output Urine Total 550 ml 670 ml # Bowel Movements 1 5 CXR: extensive dense, bilateral infiltrate ET-Tube: 7.5 ET Position: 22 Labs: Laboratory Tests Test 06/09/20 04:00 White Blood Count 13.5 K/UL (4.8-10.8) H Red Blood Count 2.83 M/UL (4.20-5.40) L Hemoglobin 9.7 G/DL (12.0-16.0) L Hematocrit 29.2 % (37.0-47.0) L Mean Corpuscular Volume 103 FL (80-99) H Mean Corpuscular Hemoglobin 34.2 PG (27.0-31.0) H Mean Corpuscular Hemoglobin Concent 33.2 G/DL (32.0-36.0) Red Cell Distribution Width 13.4 % (11.6-14.8) Platelet Count 99 K/UL (150-450) L Mean Platelet Volume 8.2 FL (6.5-10.1) Neutrophils (%) (Auto) % (45.0-75.0) Lymphocytes (%) (Auto) % (20.0-45.0) Monocytes (%) (Auto) % (1.0-10.0) Eosinophils (%) (Auto) % (0.0-3.0) Basophils (%) (Auto) % (0.0-2.0) Differential Total Cells Counted 100 Neutrophils % (Manual) 84 % (45-75) H Lymphocytes % (Manual) 10 % (20-45) L Monocytes % (Manual) 6 % (1-10) Eosinophils % (Manual) 0 % (0-3) Basophils % (Manual) 0 % (0-2) Band Neutrophils 0 % (0-8) Platelet Estimate Decreased L Platelet Morphology Normal Macrocytosis 1+ Erythrocyte Sedimentation Rate 68 MM/HR (0-30) H Sodium Level 135 MMOL/L (136-145) L Potassium Level 3.5 MMOL/L (3.5-5.1) Chloride Level 106 MMOL/L (98-107) Carbon Dioxide Level 19 MMOL/L (21-32) L Anion Gap 10 mmol/L (5-15) Blood Urea Nitrogen 26 mg/dL (7-18) H Creatinine 1.9 MG/DL (0.55-1.30) H Estimat Glomerular Filtration Rate 27.2 mL/min (>60) Glucose Level 114 MG/DL (74-106) H Uric Acid 4.4 MG/DL (2.6-7.2) Calcium Level 8.1 MG/DL (8.5-10.1) L Phosphorus Level 4.9 MG/DL (2.5-4.9) Magnesium Level 1.7 MG/DL (1.8-2.4) L Total Bilirubin 0.3 MG/DL (0.2-1.0) Aspartate Amino Transf (AST/SGOT) 20 U/L (15-37) Alanine Aminotransferase (ALT/SGPT) 11 U/L (12-78) L Alkaline Phosphatase 61 U/L (46-116) C-Reactive Protein, Quantitative 10.7 mg/dL (0.00-0.90) H Pro-B-Type Natriuretic Peptide 95119 pg/mL (0-125) H Total Protein 4.8 G/DL (6.4-8.2) L Albumin 1.2 G/DL (3.4-5.0) L Globulin 3.6 g/dL Albumin/Globulin Ratio 0.3 (1.0-2.7) L Elayne Allred MD Jun 09, 2020 11:06
[2020-06-09] MEDS: DAPTOmycin 350 MG in NS 55 ML IV SCH (11:09)
--- NOTE | 2020-06-09 11:47 | Infectious Diseases Prog Note ---
Assessment/Plan ASSESSMENT: sp code blue 06/03 Septic Shock; pressors requirements improving Fever, SP Leukocytosis; improving -06/03 u/a no pyuria Pneumonia.- COVID 19 neg x3 Acute hypoxic resp failure on VM> NRB 15l 100%; hypoxic on ABG> now VDRF 06/03 - Fio2 80% >100% 06/05> 60% 06/09 06/08 CXR: Extensive bilateral interstitial and airspace disease appears similar to the prior exam. Moderate to large bilateral pleural effusions appear unchanged. 06/05 CXR: Increasing left upper lobe dense consolidation and likely increasing bilateral pleural fluid. Persistent diffuse dense consolidation elsewhere -06/03 sp cx normal resp marie -06/02 CXR: Increased atelectasis of the right lung, since prior exam of 3 days earlier. New or increased right pleural effusion. Increased left basilar consolidation and/or pleural fluid -COVID Rapid PCR neg 05/31, 05/31, 06/03 -05/30 spc x Group G strep -05/30 CXR: Reduced lung volumes. Patchy bilateral predominantly interstitial pulmonary opacities. Could be from edema and/or pneumonia. There is a broader differential. Persistent, high grade bacteremia- r/o endocarditis -05/30 Bcx 4/4 sets S. haemolyticus; 05/31 Bcx 3/4 S/ epi; 06/04 Bcx 1.4 S. warnerri; 06/06 Bcx NTD -2d echo: no vegetaions seen ua/ wbc 10-15, nit neg, leuk +1; ucx Neg LEANN; -supratherapeutic vanco levels -Seizure disorder. - Hypothyroidism. - Down syndrome. History of PEG tube placement. [place] resident PLAN: Cont linezolid #4 given persistent GPC bacteremia (double coverage, though not ideal for bacteremia) and pneumonia (dapto doesn't cover for pneumonia) -monitor plts Cont Daptomycin #8(abx d #11) for GPC bacteremia in view of LEANN [monitor CK, was 51 on 06/03] Cont Meropenem#7 (abx d #11) given resp decompensation Cont Micafungin #6/7 f/u Repeat BCx given persistent bacteremia CT chest when stable enough, not currently given on FiO2 100% and pressors If pleural effusions, should be tapped to r/o empyema, send for bacterial cx as well as cell count and diff F/u cx of exudate around G-tube Trend GIB (black stools) 06/05 SP Azithromycin #7/7 06/03 SP Ceftriaxone #2 06/02 SP IV Vancomycin #4, Zosyn #4 05/30 SP Cefepime x1, Flagyl x1 - Monitor CBC, BMP. -f/u Cocci ab, CrAg .f/u Repeat cx - COVID neg x3; ok to dc isolation as afebrile >48hrs, alternative diagnosis - Monitor chest x-ray. - Monitor the patient's clinical course and labs. Based on those, we will do further recommendation. Thank you, Dr. Allred, for allowing me to participate in the care of this patient. I will follow the patient with you at this hospitalization. Discussed with RN Subjective Allergies: Coded Allergies: No Known Allergies (Unverified , 10/16/18) afebrile >48hrs remains intubated, Fio2 down to 60% levo down to 4 and james down to 20 Objective Last 24 Hour Vital Signs Date Time Temp Pulse Resp B/P (MAP) Pulse Ox O2 Delivery O2 Flow Rate FiO2 06/09/20 10:54 65 30 60 06/09/20 10:15 69 30 96/44 (61) 97 06/09/20 10:00 71 30 96/50 (65) 96 06/09/20 10:00 96/50 06/09/20 09:45 103/90 06/09/20 09:45 82 25 103/90 (94) 95 06/09/20 09:30 116/56 06/09/20 09:30 75 30 103/51 (68) 96 06/09/20 09:15 82 27 116/56 (76) 91 06/09/20 09:14 73 30 60 06/09/20 09:00 81 26 130/63 (85) 93 06/09/20 09:00 130/63 06/09/20 08:45 70 30 123/47 (72) 96 06/09/20 08:45 123/47 06/09/20 08:30 73 30 130/67 (88) 96 06/09/20 08:00 78 06/09/20 08:00 60 06/09/20 08:00 97.7 75 30 115/53 (73) 96 06/09/20 08:00 115/53 06/09/20 08:00 Mechanical Ventilator Mechanical Ventilator 06/09/20 07:00 82 30 99 Mechanical Ventilator 60 79 30 60 06/09/20 07:00 120/59 06/09/20 07:00 80 30 120/59 (79) 99 06/09/20 06:30 73 30 126/52 (76) 96 06/09/20 06:15 85 30 106/56 (73) 94 06/09/20 06:00 106/56 06/09/20 06:00 86 29 95/67 (76) 96 06/09/20 05:48 99 28 87/65 (72) 87 06/09/20 05:45 87 24 66/44 (51) 89 06/09/20 05:30 82 25 102/79 (87) 91 06/09/20 05:29 87 30 60 06/09/20 05:00 136/60 06/09/20 05:00 69 30 113/62 (79) 94 06/09/20 04:30 70 30 130/71 (90) 94 06/09/20 04:00 119/74 06/09/20 04:00 98.8 86 30 122/106 (111) 95 06/09/20 04:00 72 06/09/20 04:00 Mechanical Ventilator Mechanical Ventilator 06/09/20 04:00 60 06/09/20 03:30 77 30 60 06/09/20 03:30 82 29 136/69 (91) 95 06/09/20 03:00 84 29 133/73 (93) 94 06/09/20 03:00 100/60 06/09/20 02:44 80/45 06/09/20 02:30 75 26 128/90 (103) 94 06/09/20 02:00 79 30 71/36 (48) 94 06/09/20 02:00 75/21 06/09/20 01:30 84 29 141/113 (122) 93 06/09/20 01:30 79 30 60 06/09/20 01:00 79 30 120/64 (82) 95 06/09/20 01:00 129/58 06/09/20 00:30 76 30 120/54 (76) 96 06/09/20 00:00 60 06/09/20 00:00 Mechanical Ventilator Mechanical Ventilator 06/09/20 00:00 122/56 06/09/20 00:00 98.4 83 30 118/47 (70) 96 06/09/20 00:00 81 06/08/20 23:30 82 30 107/69 (82) 95 06/08/20 23:24 93 30 60 06/08/20 23:15 82 29 115/60 (78) 94 06/08/20 23:00 85 27 104/19 (47) 93 06/08/20 23:00 104/55 06/08/20 22:30 78 29 123/60 (81) 96 06/08/20 22:15 79 30 112/53 (72) 96 06/08/20 22:00 75 30 115/49 (71) 96 06/08/20 22:00 115/49 06/08/20 21:45 75 30 113/57 (75) 95 06/08/20 21:30 88 29 103/48 (66) 93 06/08/20 21:29 84 30 60 06/08/20 21:15 90 28 106/60 (75) 92 06/08/20 21:00 108/50 06/08/20 21:00 80 30 108/50 (69) 94 06/08/20 20:45 90 26 111/74 (86) 90 06/08/20 20:30 86 28 102/59 (73) 94 06/08/20 20:17 87 27 108/57 (74) 93 06/08/20 20:00 98.8 81 30 109/45 (66) 95 06/08/20 20:00 86 06/08/20 20:00 109/45 06/08/20 20:00 Mechanical Ventilator Mechanical Ventilator 06/08/20 19:45 85 30 113/60 (77) 95 06/08/20 19:30 86 29 105/62 (76) 94 06/08/20 19:30 87 30 94 Mechanical Ventilator 60 90 30 60 06/08/20 19:00 72 30 103/53 (70) 96 06/08/20 19:00 103/53 06/08/20 18:30 74 30 105/57 (73) 95 06/08/20 18:15 82 28 110/65 (80) 95 06/08/20 18:00 110/55 8/31/20 18:00 83 30 110/55 (73) 94 06/08/20 17:45 75 29 119/62 (81) 97 06/08/20 17:30 73 30 122/63 (82) 97 06/08/20 17:15 119/61 06/08/20 17:15 97.5 74 30 119/61 (80) 97 06/08/20 17:00 Mechanical Ventilator Mechanical Ventilator 06/08/20 17:00 111/61 06/08/20 17:00 60 06/08/20 17:00 74 30 111/64 (80) 96 06/08/20 16:41 84 30 60 06/08/20 16:30 84 29 116/59 (78) 96 06/08/20 16:00 93 06/08/20 16:00 83 29 123/89 (100) 97 06/08/20 16:00 123/89 06/08/20 16:00 100 06/08/20 16:00 Mechanical Ventilator Mechanical Ventilator 06/08/20 15:30 82 30 87/48 (61) 97 06/08/20 15:00 87 29 102/60 (74) 94 06/08/20 15:00 102/60 06/08/20 14:48 81 30 100 06/08/20 14:30 79 29 104/68 (80) 100 06/08/20 14:00 93/58 06/08/20 14:00 89 27 93/58 (70) 100 06/08/20 13:30 80 29 87/65 (72) 100 06/08/20 13:00 75 30 112/62 (79) 100 06/08/20 13:00 95/65 06/08/20 12:45 98.6 71 29 95/65 (75) 100 06/08/20 12:30 72 29 125/82 (96) 100 06/08/20 12:25 67 30 100 Mechanical Ventilator 100 65 30 100 06/08/20 12:00 Mechanical Ventilator Mechanical Ventilator 06/08/20 12:00 119/70 06/08/20 12:00 100 06/08/20 12:00 82 06/08/20 12:00 68 30 119/70 (86) 100 06/08/20 11:45 67 30 110/67 (81) 100 06/08/20 11:45 110/67 Height (Feet): 5 Height (Inches): 3.00 Weight (Pounds): 172 HEENT: No pale conjunctivae. No icterus. ETT in place NECK: No lymphadenopathy. CHEST: Coarse breathing sounds. HEART: S1 and S2. ABDOMEN: Soft. PEG tube in place. EXTREMITIES: No cyanosis at this time . SKIN: no rash Microbiology Date/Time Source Procedure Growth Status 06/06/20 11:50 Blood Blood Culture - Preliminary NO GROWTH AFTER 48 HOURS Resulted Laboratory Tests Test 06/09/20 04:00 White Blood Count 13.5 K/UL (4.8-10.8) H Red Blood Count 2.83 M/UL (4.20-5.40) L Hemoglobin 9.7 G/DL (12.0-16.0) L Hematocrit 29.2 % (37.0-47.0) L Mean Corpuscular Volume 103 FL (80-99) H Mean Corpuscular Hemoglobin 34.2 PG (27.0-31.0) H Mean Corpuscular Hemoglobin Concent 33.2 G/DL (32.0-36.0) Red Cell Distribution Width 13.4 % (11.6-14.8) Platelet Count 99 K/UL (150-450) L Mean Platelet Volume 8.2 FL (6.5-10.1) Neutrophils (%) (Auto) % (45.0-75.0) Lymphocytes (%) (Auto) % (20.0-45.0) Monocytes (%) (Auto) % (1.0-10.0) Eosinophils (%) (Auto) % (0.0-3.0) Basophils (%) (Auto) % (0.0-2.0) Differential Total Cells Counted 100 Neutrophils % (Manual) 84 % (45-75) H Lymphocytes % (Manual) 10 % (20-45) L Monocytes % (Manual) 6 % (1-10) Eosinophils % (Manual) 0 % (0-3) Basophils % (Manual) 0 % (0-2) Band Neutrophils 0 % (0-8) Platelet Estimate Decreased L Platelet Morphology Normal Macrocytosis 1+ Erythrocyte Sedimentation Rate 68 MM/HR (0-30) H Sodium Level 135 MMOL/L (136-145) L Potassium Level 3.5 MMOL/L (3.5-5.1) Chloride Level 106 MMOL/L (98-107) Carbon Dioxide Level 19 MMOL/L (21-32) L Anion Gap 10 mmol/L (5-15) Blood Urea Nitrogen 26 mg/dL (7-18) H Creatinine 1.9 MG/DL (0.55-1.30) H Estimat Glomerular Filtration Rate 27.2 mL/min (>60) Glucose Level 114 MG/DL (74-106) H Uric Acid 4.4 MG/DL (2.6-7.2) Calcium Level 8.1 MG/DL (8.5-10.1) L Phosphorus Level 4.9 MG/DL (2.5-4.9) Magnesium Level 1.7 MG/DL (1.8-2.4) L Total Bilirubin 0.3 MG/DL (0.2-1.0) Aspartate Amino Transf (AST/SGOT) 20 U/L (15-37) Alanine Aminotransferase (ALT/SGPT) 11 U/L (12-78) L Alkaline Phosphatase 61 U/L (46-116) C-Reactive Protein, Quantitative 10.7 mg/dL (0.00-0.90) H Pro-B-Type Natriuretic Peptide 62250 pg/mL (0-125) H Total Protein 4.8 G/DL (6.4-8.2) L Albumin 1.2 G/DL (3.4-5.0) L Globulin 3.6 g/dL Albumin/Globulin Ratio 0.3 (1.0-2.7) L Current Medications Medications (Trade) Dose Ordered Sig/Katy Route PRN Reason Start Time Stop Time Status Last Admin Dose Admin Acetaminophen (Tylenol) 650 mg Q4H PRN GT FEVER 06/03/20 11:45 07/03/20 11:44 06/06/20 23:15 Albuterol/ Ipratropium (Albuterol/ Ipratropium) 3 ml Q4H PRN HHN Shortness of Breath 06/06/20 11:30 06/11/20 11:29 Albuterol/ Ipratropium (Albuterol/ Ipratropium) 3 ml TIDRT HHN 06/06/20 13:00 06/11/20 12:59 06/09/20 07:05 Chlorhexidine Gluconate (Alla-Hex 2%) 1 applic DAILY@1999 TOPIC 06/08/20 20:00 09/06/20 19:59 06/08/20 19:33 Clotrimazole (Lotrimin) 1 applic Q12HR TOPIC 06/07/20 13:00 09/05/20 12:59 06/09/20 09:43 Daptomycin 350 mg/ Sodium Chloride 55 ml @ 100 mls/hr Q48H IV 06/05/20 11:00 06/13/20 10:59 06/09/20 11:09 Dextrose (Dextrose 50%) 25 ml Q30M PRN IV Hypoglycemia 06/03/20 11:30 08/28/20 11:29 Dextrose (Dextrose 50%) 50 ml Q30M PRN IV Hypoglycemia 06/03/20 11:30 08/28/20 11:29 Hydrocortisone (Solu-CORTEF) 100 mg EVERY 8 HOURS IV 06/07/20 14:00 09/05/20 13:59 06/09/20 06:13 Levothyroxine Sodium (Synthroid) 75 mcg DAILY GT 06/04/20 09:00 06/30/20 08:59 06/09/20 09:44 Linezolid 300 ml @ 300 mls/hr Q12H IVPB 06/06/20 15:00 06/13/20 14:59 06/09/20 02:44 Meropenem 1 gm/ Sodium Chloride 55 ml @ 110 mls/hr Q12H IVPB 06/03/20 16:00 06/13/20 15:59 06/09/20 04:03 Micafungin Sodium 100 mg/Sodium Chloride 110 ml @ 110 mls/hr Q24H IVPB 06/04/20 14:00 06/11/20 13:59 06/08/20 15:06 Midodrine (Pro-Amatine) 10 mg Q8HR GT 06/05/20 14:00 09/03/20 13:59 06/09/20 06:13 Norepinephrine Bitartrate 16 mg/ Dextrose 500 ml @ 0 mls/hr Q24H IV 06/08/20 07:45 07/07/20 12:59 06/09/20 02:44 Ondansetron HCl (Zofran) 4 mg Q6H PRN IVP Nausea & Vomiting 06/03/20 12:00 06/29/20 11:59 Pantoprazole (Protonix) 40 mg DAILY IV 06/04/20 09:00 06/30/20 08:59 06/09/20 09:43 Phenylephrine HCl 50 mg/Dextrose 250 ml @ 0 mls/hr Q24H PRN IV For hypotension 06/06/20 17:45 07/06/20 17:44 06/08/20 01:49 Polyethylene Glycol (Miralax) 17 gm DAILYPRN PRN GT Constipation 06/03/20 12:00 06/29/20 11:59 Sodium Chloride 1,000 ml @ 50 mls/hr Q20H IV 06/08/20 09:32 07/08/20 09:31 06/09/20 06:10 Valproic Acid (Depakene) 500 mg EVERY 8 HOURS GT 06/03/20 14:00 06/29/20 21:59 06/09/20 06:13 Suki Camejo M.D. Jun 09, 2020 11:47
--- NOTE | 2020-06-09 11:51 | NUR ---
NURSE NOTES: RT called for sputum culture.
--- NOTE | 2020-06-09 13:48 | Cardiology Progress Note ---
Assessment/Plan Assessment/Plan sepsis respiratory failure ards renal insuf bacteremia abn cardiac enzyme due to demand covid isolation removed as covid -x3 min trop abn ekg lat one form 05/30 reviewed non ischemic echo preformed 06/02 nl lv function personally reviewed pressor as need vent support abx noted recommendation for possible thoracentesis tele sinus now wbc improved renal insuf not seems to have changed Subjective ROS Limited/Unobtainable: Yes Subjective on [place] not communicative Objective Last 24 Hour Vital Signs Date Time Temp Pulse Resp B/P (MAP) Pulse Ox O2 Delivery O2 Flow Rate FiO2 06/09/20 13:00 77 29 93/53 (66) 96 06/09/20 12:32 73 30 98 Mechanical Ventilator 60 75 30 60 06/09/20 12:30 74 29 84/47 (59) 96 06/09/20 12:00 70 28 94/60 (71) 95 06/09/20 12:00 70 06/09/20 11:30 61 30 112/44 (66) 97 06/09/20 11:15 62 30 105/41 (62) 96 06/09/20 11:00 63 30 100/52 (68) 97 06/09/20 10:54 65 30 60 06/09/20 10:45 70 30 108/49 (68) 97 06/09/20 10:30 66 30 97/46 (63) 97 06/09/20 10:15 69 30 96/44 (61) 97 06/09/20 10:00 71 30 96/50 (65) 96 06/09/20 10:00 96/50 06/09/20 09:45 103/90 06/09/20 09:45 82 25 103/90 (94) 95 06/09/20 09:30 116/56 06/09/20 09:30 75 30 103/51 (68) 96 06/09/20 09:15 82 27 116/56 (76) 91 06/09/20 09:14 73 30 60 06/09/20 09:00 81 26 130/63 (85) 93 06/09/20 09:00 130/63 06/09/20 08:45 70 30 123/47 (72) 96 06/09/20 08:45 123/47 06/09/20 08:30 73 30 130/67 (88) 96 06/09/20 08:00 78 06/09/20 08:00 60 06/09/20 08:00 97.7 75 30 115/53 (73) 96 06/09/20 08:00 115/53 06/09/20 08:00 Mechanical Ventilator Mechanical Ventilator 06/09/20 07:00 82 30 99 Mechanical Ventilator 60 79 30 60 06/09/20 07:00 120/59 06/09/20 07:00 80 30 120/59 (79) 99 06/09/20 06:30 73 30 126/52 (76) 96 06/09/20 06:15 85 30 106/56 (73) 94 06/09/20 06:00 106/56 06/09/20 06:00 86 29 95/67 (76) 96 06/09/20 05:48 99 28 87/65 (72) 87 06/09/20 05:45 87 24 66/44 (51) 89 06/09/20 05:30 82 25 102/79 (87) 91 06/09/20 05:29 87 30 60 06/09/20 05:00 136/60 06/09/20 05:00 69 30 113/62 (79) 94 06/09/20 04:30 70 30 130/71 (90) 94 06/09/20 04:00 119/74 06/09/20 04:00 98.8 86 30 122/106 (111) 95 06/09/20 04:00 72 06/09/20 04:00 Mechanical Ventilator Mechanical Ventilator 06/09/20 04:00 60 06/09/20 03:30 77 30 60 06/09/20 03:30 82 29 136/69 (91) 95 06/09/20 03:00 84 29 133/73 (93) 94 06/09/20 03:00 100/60 06/09/20 02:44 80/45 06/09/20 02:30 75 26 128/90 (103) 94 06/09/20 02:00 79 30 71/36 (48) 94 06/09/20 02:00 75/21 06/09/20 01:30 84 29 141/113 (122) 93 06/09/20 01:30 79 30 60 06/09/20 01:00 79 30 120/64 (82) 95 06/09/20 01:00 129/58 06/09/20 00:30 76 30 120/54 (76) 96 06/09/20 00:00 60 06/09/20 00:00 Mechanical Ventilator Mechanical Ventilator 06/09/20 00:00 122/56 06/09/20 00:00 98.4 83 30 118/47 (70) 96 06/09/20 00:00 81 06/08/20 23:30 82 30 107/69 (82) 95 06/08/20 23:24 93 30 60 06/08/20 23:15 82 29 115/60 (78) 94 06/08/20 23:00 85 27 104/19 (47) 93 06/08/20 23:00 104/55 06/08/20 22:30 78 29 123/60 (81) 96 06/08/20 22:15 79 30 112/53 (72) 96 06/08/20 22:00 75 30 115/49 (71) 96 06/08/20 22:00 115/49 06/08/20 21:45 75 30 113/57 (75) 95 06/08/20 21:30 88 29 103/48 (66) 93 06/08/20 21:29 84 30 60 06/08/20 21:15 90 28 106/60 (75) 92 06/08/20 21:00 108/50 06/08/20 21:00 80 30 108/50 (69) 94 06/08/20 20:45 90 26 111/74 (86) 90 06/08/20 20:30 86 28 102/59 (73) 94 06/08/20 20:17 87 27 108/57 (74) 93 06/08/20 20:00 98.8 81 30 109/45 (66) 95 06/08/20 20:00 86 06/08/20 20:00 109/45 06/08/20 20:00 Mechanical Ventilator Mechanical Ventilator 06/08/20 19:45 85 30 113/60 (77) 95 06/08/20 19:30 86 29 105/62 (76) 94 06/08/20 19:30 87 30 94 Mechanical Ventilator 60 90 30 60 06/08/20 19:00 72 30 103/53 (70) 96 06/08/20 19:00 103/53 06/08/20 18:30 74 30 105/57 (73) 95 06/08/20 18:15 82 28 110/65 (80) 95 06/08/20 18:00 110/55 06/08/20 18:00 83 30 110/55 (73) 94 06/08/20 17:45 75 29 119/62 (81) 97 06/08/20 17:30 73 30 122/63 (82) 97 06/08/20 17:15 119/61 06/08/20 17:15 97.5 74 30 119/61 (80) 97 06/08/20 17:00 Mechanical Ventilator Mechanical Ventilator 06/08/20 17:00 111/61 06/08/20 17:00 60 06/08/20 17:00 74 30 111/64 (80) 96 06/08/20 16:41 84 30 60 06/08/20 16:30 84 29 116/59 (78) 96 06/08/20 16:00 93 06/08/20 16:00 83 29 123/89 (100) 97 06/08/20 16:00 123/89 06/08/20 16:00 100 06/08/20 16:00 Mechanical Ventilator Mechanical Ventilator 06/08/20 15:30 82 30 87/48 (61) 97 06/08/20 15:00 87 29 102/60 (74) 94 06/08/20 15:00 102/60 06/08/20 14:48 81 30 100 06/08/20 14:30 79 29 104/68 (80) 100 06/08/20 14:00 93/58 06/08/20 14:00 89 27 93/58 (70) 100 General Appearance: no apparent distress, obese, on vent, patient on isolation Neck: supple Cardiovascular: normal rate Respiratory/Chest: crackles/rales Abdomen: normal bowel sounds, non tender, soft Extremities: no swelling Intake and Output 06/08/20 06/09/20 19:00 07:00 Intake Total 1822.0000 ml 1469.37 ml Output Total 550 ml 670 ml Balance 1272.0000 ml 799.37 ml Free Water 90 ml IV Total 1622.0000 ml 1139.37 ml Tube Feeding 200 ml 240 ml Output Urine Total 550 ml 670 ml # Bowel Movements 1 5 Laboratory Tests Test 06/09/20 04:00 White Blood Count 13.5 K/UL (4.8-10.8) H Red Blood Count 2.83 M/UL (4.20-5.40) L Hemoglobin 9.7 G/DL (12.0-16.0) L Hematocrit 29.2 % (37.0-47.0) L Mean Corpuscular Volume 103 FL (80-99) H Mean Corpuscular Hemoglobin 34.2 PG (27.0-31.0) H Mean Corpuscular Hemoglobin Concent 33.2 G/DL (32.0-36.0) Red Cell Distribution Width 13.4 % (11.6-14.8) Platelet Count 99 K/UL (150-450) L Mean Platelet Volume 8.2 FL (6.5-10.1) Neutrophils (%) (Auto) % (45.0-75.0) Lymphocytes (%) (Auto) % (20.0-45.0) Monocytes (%) (Auto) % (1.0-10.0) Eosinophils (%) (Auto) % (0.0-3.0) Basophils (%) (Auto) % (0.0-2.0) Differential Total Cells Counted 100 Neutrophils % (Manual) 84 % (45-75) H Lymphocytes % (Manual) 10 % (20-45) L Monocytes % (Manual) 6 % (1-10) Eosinophils % (Manual) 0 % (0-3) Basophils % (Manual) 0 % (0-2) Band Neutrophils 0 % (0-8) Platelet Estimate Decreased L Platelet Morphology Normal Macrocytosis 1+ Erythrocyte Sedimentation Rate 68 MM/HR (0-30) H Sodium Level 135 MMOL/L (136-145) L Potassium Level 3.5 MMOL/L (3.5-5.1) Chloride Level 106 MMOL/L (98-107) Carbon Dioxide Level 19 MMOL/L (21-32) L Anion Gap 10 mmol/L (5-15) Blood Urea Nitrogen 26 mg/dL (7-18) H Creatinine 1.9 MG/DL (0.55-1.30) H Estimat Glomerular Filtration Rate 27.2 mL/min (>60) Glucose Level 114 MG/DL (74-106) H Uric Acid 4.4 MG/DL (2.6-7.2) Calcium Level 8.1 MG/DL (8.5-10.1) L Phosphorus Level 4.9 MG/DL (2.5-4.9) Magnesium Level 1.7 MG/DL (1.8-2.4) L Total Bilirubin 0.3 MG/DL (0.2-1.0) Aspartate Amino Transf (AST/SGOT) 20 U/L (15-37) Alanine Aminotransferase (ALT/SGPT) 11 U/L (12-78) L Alkaline Phosphatase 61 U/L (46-116) C-Reactive Protein, Quantitative 10.7 mg/dL (0.00-0.90) H Pro-B-Type Natriuretic Peptide 12370 pg/mL (0-125) H Total Protein 4.8 G/DL (6.4-8.2) L Albumin 1.2 G/DL (3.4-5.0) L Globulin 3.6 g/dL Albumin/Globulin Ratio 0.3 (1.0-2.7) L Josue Pantoja MD Jun 09, 2020 13:48
--- NOTE | 2020-06-09 14:00 | NUR ---
NURSE NOTES: Patient stable at this time. No s/sx of pain or distress. More awake now. Makes eye contact and tracks. Trying to cough up and push out bite block. Bite block resecured again. Will continue to monitor.
[2020-06-09] MEDS: Micafungin 100 MG in NS 110 ML IVPB SCH (15:07)
--- NOTE | 2020-06-09 15:36 | Nephrology Progress Note ---
Assessment/Plan Problem List: (1) LEANN (acute kidney injury) (2) Respiratory failure requiring intubation (3) Down's syndrome (4) Seizure disorder (5) Hypothyroidism Assessment Acute renal failure, likely due to hypotension Acute respiratory distress, hypoxia Seizure disorder Hypothyroidism Down syndrome Full code Fluid challenge with IV fluids and albumin Midodrine for BP above 100 systolic Check TSH level Check Correct level Monitor renal parameters Urine studies Per orders Plan June 09: Requires less pressors. Albumin bolus given. 1 dose of Lasix IV ordered as the patient severely edematous. Patient serum albumin is very low. Continue per consultants. June 08: Continues to be intubated. Labs reviewed. Serum creatinine 1.9 unchanged. Blood pressure more stable. Off 1 of the pressors. Continue to monitor renal parameters. Continue per consultants. Patient now on hydrocortisone 100 mg every 8 hours. Will decrease IV fluid. Normal saline down to 50 cc an hour. June 07: Intubated. Labs reviewed. Creatinine 1.9 unchanged. Continue same treatment plan. Per consultants. Overall poor prognosis since the patient remains on pressors and her pulmonary status is worsening. June 06: Remains intubated. Labs reviewed. Creatinine 1.9. Blood pressure systolic 90s. Continue per consultants. June 05: Remains intubated. Labs reviewed. Serum creatinine lower to 2. Vancomycin level lower. Remains hypotensive on pressors. Will increase midodrine to 10 mg every 8 hours. Continue per consultants. Continue to monitor renal parameters. June 04: Patient now in ICU. Intubated. On pressors. Labs reviewed. Will increase midodrine. Aim to keep blood pressure over 100 systolic. Will give albumin bolus. Will check vancomycin level which was elevated when checked previously on June 01. Will monitor renal parameters. Continue per consultants. Subjective ROS Limited/Unobtainable: Yes Objective Objective Last 24 Hour Vital Signs Date Time Temp Pulse Resp B/P (MAP) Pulse Ox O2 Delivery O2 Flow Rate FiO2 06/09/20 15:02 71 30 60 06/09/20 13:00 77 29 93/53 (66) 96 06/09/20 12:32 73 30 98 Mechanical Ventilator 60 75 30 60 06/09/20 12:30 74 29 84/47 (59) 96 06/09/20 12:00 70 28 94/60 (71) 95 06/09/20 12:00 70 06/09/20 11:30 61 30 112/44 (66) 97 06/09/20 11:15 62 30 105/41 (62) 96 06/09/20 11:00 63 30 100/52 (68) 97 06/09/20 10:54 65 30 60 06/09/20 10:45 70 30 108/49 (68) 97 06/09/20 10:30 66 30 97/46 (63) 97 06/09/20 10:15 69 30 96/44 (61) 97 06/09/20 10:00 71 30 96/50 (65) 96 06/09/20 10:00 96/50 06/09/20 09:45 103/90 06/09/20 09:45 82 25 103/90 (94) 95 06/09/20 09:30 116/56 06/09/20 09:30 75 30 103/51 (68) 96 06/09/20 09:15 82 27 116/56 (76) 91 06/09/20 09:14 73 30 60 06/09/20 09:00 81 26 130/63 (85) 93 06/09/20 09:00 130/63 06/09/20 08:45 70 30 123/47 (72) 96 06/09/20 08:45 123/47 06/09/20 08:30 73 30 130/67 (88) 96 06/09/20 08:00 78 06/09/20 08:00 60 06/09/20 08:00 97.7 75 30 115/53 (73) 96 06/09/20 08:00 115/53 06/09/20 08:00 Mechanical Ventilator Mechanical Ventilator 06/09/20 07:00 82 30 99 Mechanical Ventilator 60 79 30 60 06/09/20 07:00 120/59 06/09/20 07:00 80 30 120/59 (79) 99 06/09/20 06:30 73 30 126/52 (76) 96 06/09/20 06:15 85 30 106/56 (73) 94 06/09/20 06:00 106/56 06/09/20 06:00 86 29 95/67 (76) 96 06/09/20 05:48 99 28 87/65 (72) 87 06/09/20 05:45 87 24 66/44 (51) 89 06/09/20 05:30 82 25 102/79 (87) 91 06/09/20 05:29 87 30 60 06/09/20 05:00 136/60 06/09/20 05:00 69 30 113/62 (79) 94 06/09/20 04:30 70 30 130/71 (90) 94 06/09/20 04:00 119/74 06/09/20 04:00 98.8 86 30 122/106 (111) 95 06/09/20 04:00 72 06/09/20 04:00 Mechanical Ventilator Mechanical Ventilator 06/09/20 04:00 60 06/09/20 03:30 77 30 60 06/09/20 03:30 82 29 136/69 (91) 95 06/09/20 03:00 84 29 133/73 (93) 94 06/09/20 03:00 100/60 06/09/20 02:44 80/45 06/09/20 02:30 75 26 128/90 (103) 94 06/09/20 02:00 79 30 71/36 (48) 94 06/09/20 02:00 75/21 06/09/20 01:30 84 29 141/113 (122) 93 06/09/20 01:30 79 30 60 06/09/20 01:00 79 30 120/64 (82) 95 06/09/20 01:00 129/58 06/09/20 00:30 76 30 120/54 (76) 96 06/09/20 00:00 60 06/09/20 00:00 Mechanical Ventilator Mechanical Ventilator 06/09/20 00:00 122/56 06/09/20 00:00 98.4 83 30 118/47 (70) 96 06/09/20 00:00 81 06/08/20 23:30 82 30 107/69 (82) 95 06/08/20 23:24 93 30 60 06/08/20 23:15 82 29 115/60 (78) 94 06/08/20 23:00 85 27 104/19 (47) 93 06/08/20 23:00 104/55 06/08/20 22:30 78 29 123/60 (81) 96 06/08/20 22:15 79 30 112/53 (72) 96 06/08/20 22:00 75 30 115/49 (71) 96 06/08/20 22:00 115/49 06/08/20 21:45 75 30 113/57 (75) 95 06/08/20 21:30 88 29 103/48 (66) 93 06/08/20 21:29 84 30 60 06/08/20 21:15 90 28 106/60 (75) 92 06/08/20 21:00 108/50 06/08/20 21:00 80 30 108/50 (69) 94 06/08/20 20:45 90 26 111/74 (86) 90 06/08/20 20:30 86 28 102/59 (73) 94 06/08/20 20:17 87 27 108/57 (74) 93 06/08/20 20:00 98.8 81 30 109/45 (66) 95 06/08/20 20:00 86 06/08/20 20:00 109/45 06/08/20 20:00 Mechanical Ventilator Mechanical Ventilator 06/08/20 19:45 85 30 113/60 (77) 95 06/08/20 19:30 86 29 105/62 (76) 94 06/08/20 19:30 87 30 94 Mechanical Ventilator 60 90 30 60 06/08/20 19:00 72 30 103/53 (70) 96 06/08/20 19:00 103/53 06/08/20 18:30 74 30 105/57 (73) 95 06/08/20 18:15 82 28 110/65 (80) 95 06/08/20 18:00 110/55 06/08/20 18:00 83 30 110/55 (73) 94 06/08/20 17:45 75 29 119/62 (81) 97 06/08/20 17:30 73 30 122/63 (82) 97 06/08/20 17:15 119/61 06/08/20 17:15 97.5 74 30 119/61 (80) 97 06/08/20 17:00 Mechanical Ventilator Mechanical Ventilator 06/08/20 17:00 111/61 06/08/20 17:00 60 06/08/20 17:00 74 30 111/64 (80) 96 06/08/20 16:41 84 30 60 06/08/20 16:30 84 29 116/59 (78) 96 06/08/20 16:00 93 06/08/20 16:00 83 29 123/89 (100) 97 06/08/20 16:00 123/89 06/08/20 16:00 100 06/08/20 16:00 Mechanical Ventilator Mechanical Ventilator Intake and Output 06/08/20 06/09/20 19:00 07:00 Intake Total 1822.0000 ml 1469.37 ml Output Total 550 ml 670 ml Balance 1272.0000 ml 799.37 ml Free Water 90 ml IV Total 1622.0000 ml 1139.37 ml Tube Feeding 200 ml 240 ml Output Urine Total 550 ml 670 ml # Bowel Movements 1 5 Laboratory Tests 06/09/20 04:00: White Blood Count 13.5H, Red Blood Count 2.83L, Hemoglobin 9.7L, Hematocrit 29.2L, Mean Corpuscular Volume 103H, Mean Corpuscular Hemoglobin 34.2H, Mean Corpuscular Hemoglobin Concent 33.2, Red Cell Distribution Width 13.4, Platelet Count 99L, Mean Platelet Volume 8.2, Neutrophils (%) (Auto) , Lymphocytes (%) ( Auto) , Monocytes (%) (Auto) , Eosinophils (%) (Auto) , Basophils (%) (Auto) , Differential Total Cells Counted 100, Neutrophils % (Manual) 84H, Lymphocytes % (Manual) 10L, Monocytes % (Manual) 6, Eosinophils % (Manual) 0, Basophils % ( Manual) 0, Band Neutrophils 0, Platelet Estimate DecreasedL, Platelet Morphology Normal, Macrocytosis 1+, Erythrocyte Sedimentation Rate 68H, Sodium Level 135L, Potassium Level 3.5, Chloride Level 106, Carbon Dioxide Level 19L, Anion Gap 10, Blood Urea Nitrogen 26H, Creatinine 1.9H, Estimat Glomerular Filtration Rate 27.2, Glucose Level 114H, Uric Acid 4.4, Calcium Level 8.1L, Phosphorus Level 4.9, Magnesium Level 1.7L, Total Bilirubin 0.3, Aspartate Amino Transf (AST/SGOT) 20, Alanine Aminotransferase (ALT/SGPT) 11L, Alkaline Phosphatase 61, C-Reactive Protein, Quantitative 10.7H, Pro-B-Type Natriuretic Peptide 95512O, Total Protein 4.8L, Albumin 1.2L, Globulin 3.6, Albumin/ Globulin Ratio 0.3L Height (Feet): 5 Height (Inches): 3.00 Weight (Pounds): 172 General Appearance: no apparent distress EENT: other - On ventilator Cardiovascular: normal rate Respiratory/Chest: decreased breath sounds Abdomen: distended Keron Pitt MD Jun 09, 2020 15:36
--- NOTE | 2020-06-09 15:53 | NUR ---
CASE MANAGEMENT: REVIEW SI: PNA . DOWN SYNDROME . SEIZURE DISORDER T 97.7 HR 72 RR 30 BP 91/45 SAT 93% MECH VENT FIO2 60 WBC 13.5 H/H 9.7/29.2 NA 135 CR 1.9 BNP 60616 IS: ALBUMIN IV X1 LASIX IV X1 MAG SULFATE IV X1 ZYVOX IV Q12HR LEVOPHED IV Q24HR DAPTOMYCIN IV Q24HR MICAFUNGIN IV Q24HR MEROPENEM IV Q12HR ICU STATUS DCP: PATIENT IS FROM HOME [facility]
--- NOTE | 2020-06-09 16:00 | NUR ---
NURSE NOTES: Patient cleaned and bathed. BM at this time with liquid consistency. Medications given. Feeding tubing changed. Gtube flushed and patent.
--- NOTE | 2020-06-09 18:31 | Internal Med Progress Note ---
Subjective Date of Service: Jun 09, 2020 Physician Name Joni Copeland Attending Physician Elayne Allred MD Current Medications Medications (Trade) Dose Ordered Sig/Katy Route PRN Reason Start Time Stop Time Status Last Admin Dose Admin Acetaminophen (Tylenol) 650 mg Q4H PRN GT FEVER 06/03/20 11:45 07/03/20 11:44 06/06/20 23:15 Albuterol/ Ipratropium (Albuterol/ Ipratropium) 3 ml Q4H PRN HHN Shortness of Breath 06/06/20 11:30 06/11/20 11:29 Albuterol/ Ipratropium (Albuterol/ Ipratropium) 3 ml TIDRT HHN 06/06/20 13:00 06/11/20 12:59 06/09/20 12:35 Chlorhexidine Gluconate (Alla-Hex 2%) 1 applic DAILY@1999 TOPIC 06/08/20 20:00 09/06/20 19:59 06/08/20 19:33 Clotrimazole (Lotrimin) 1 applic Q12HR TOPIC 06/07/20 13:00 09/05/20 12:59 06/09/20 09:43 Daptomycin 350 mg/ Sodium Chloride 55 ml @ 100 mls/hr Q48H IV 06/05/20 11:00 06/13/20 10:59 06/09/20 11:09 Dextrose (Dextrose 50%) 25 ml Q30M PRN IV Hypoglycemia 06/03/20 11:30 08/28/20 11:29 Dextrose (Dextrose 50%) 50 ml Q30M PRN IV Hypoglycemia 06/03/20 11:30 08/28/20 11:29 Hydrocortisone (Solu-CORTEF) 100 mg EVERY 8 HOURS IV 06/07/20 14:00 09/05/20 13:59 06/09/20 15:07 Levothyroxine Sodium (Synthroid) 75 mcg DAILY GT 06/04/20 09:00 06/30/20 08:59 06/09/20 09:44 Linezolid 300 ml @ 300 mls/hr Q12H IVPB 06/06/20 15:00 06/13/20 14:59 06/09/20 16:03 Meropenem 1 gm/ Sodium Chloride 55 ml @ 110 mls/hr Q12H IVPB 06/03/20 16:00 06/13/20 15:59 06/09/20 16:03 Micafungin Sodium 100 mg/Sodium Chloride 110 ml @ 110 mls/hr Q24H IVPB 06/04/20 14:00 06/11/20 13:59 06/09/20 15:07 Midodrine (Pro-Amatine) 10 mg Q8HR GT 06/05/20 14:00 09/03/20 13:59 06/09/20 15:07 Norepinephrine Bitartrate 16 mg/ Dextrose 500 ml @ 0 mls/hr Q24H IV 06/08/20 07:45 07/07/20 12:59 06/09/20 02:44 Ondansetron HCl (Zofran) 4 mg Q6H PRN IVP Nausea & Vomiting 06/03/20 12:00 06/29/20 11:59 Pantoprazole (Protonix) 40 mg DAILY IV 06/04/20 09:00 06/30/20 08:59 06/09/20 09:43 Phenylephrine HCl 50 mg/Dextrose 250 ml @ 0 mls/hr Q24H PRN IV For hypotension 06/06/20 17:45 07/06/20 17:44 06/08/20 01:49 Polyethylene Glycol (Miralax) 17 gm DAILYPRN PRN GT Constipation 06/03/20 12:00 06/29/20 11:59 Sodium Chloride 1,000 ml @ 50 mls/hr Q20H IV 06/08/20 09:32 07/08/20 09:31 06/09/20 06:10 Valproic Acid (Depakene) 500 mg EVERY 8 HOURS GT 06/03/20 14:00 06/29/20 21:59 06/09/20 15:07 Allergies: Coded Allergies: No Known Allergies (Unverified , 10/16/18) ROS Limited/Unobtainable: Yes Subjective 59 YO F with Down's syndrome admitted with hypoxia. Now sepsis and pneumonia. Cover for Int [facility]. ICU. Intubated and sedated Objective Last Vital Signs Date Time Temp Pulse Resp B/P (MAP) Pulse Ox O2 Delivery O2 Flow Rate FiO2 06/09/20 18:01 82 27 116/58 (77) 90 06/09/20 16:00 Mechanical Ventilator Mechanical Ventilator 06/09/20 16:00 60 06/09/20 08:00 97.7 06/04/20 00:00 15.0 Laboratory Tests Test 06/09/20 04:00 White Blood Count 13.5 K/UL (4.8-10.8) H Red Blood Count 2.83 M/UL (4.20-5.40) L Hemoglobin 9.7 G/DL (12.0-16.0) L Hematocrit 29.2 % (37.0-47.0) L Mean Corpuscular Volume 103 FL (80-99) H Mean Corpuscular Hemoglobin 34.2 PG (27.0-31.0) H Mean Corpuscular Hemoglobin Concent 33.2 G/DL (32.0-36.0) Red Cell Distribution Width 13.4 % (11.6-14.8) Platelet Count 99 K/UL (150-450) L Mean Platelet Volume 8.2 FL (6.5-10.1) Neutrophils (%) (Auto) % (45.0-75.0) Lymphocytes (%) (Auto) % (20.0-45.0) Monocytes (%) (Auto) % (1.0-10.0) Eosinophils (%) (Auto) % (0.0-3.0) Basophils (%) (Auto) % (0.0-2.0) Differential Total Cells Counted 100 Neutrophils % (Manual) 84 % (45-75) H Lymphocytes % (Manual) 10 % (20-45) L Monocytes % (Manual) 6 % (1-10) Eosinophils % (Manual) 0 % (0-3) Basophils % (Manual) 0 % (0-2) Band Neutrophils 0 % (0-8) Platelet Estimate Decreased L Platelet Morphology Normal Macrocytosis 1+ Erythrocyte Sedimentation Rate 68 MM/HR (0-30) H Sodium Level 135 MMOL/L (136-145) L Potassium Level 3.5 MMOL/L (3.5-5.1) Chloride Level 106 MMOL/L (98-107) Carbon Dioxide Level 19 MMOL/L (21-32) L Anion Gap 10 mmol/L (5-15) Blood Urea Nitrogen 26 mg/dL (7-18) H Creatinine 1.9 MG/DL (0.55-1.30) H Estimat Glomerular Filtration Rate 27.2 mL/min (>60) Glucose Level 114 MG/DL (74-106) H Uric Acid 4.4 MG/DL (2.6-7.2) Calcium Level 8.1 MG/DL (8.5-10.1) L Phosphorus Level 4.9 MG/DL (2.5-4.9) Magnesium Level 1.7 MG/DL (1.8-2.4) L Total Bilirubin 0.3 MG/DL (0.2-1.0) Aspartate Amino Transf (AST/SGOT) 20 U/L (15-37) Alanine Aminotransferase (ALT/SGPT) 11 U/L (12-78) L Alkaline Phosphatase 61 U/L (46-116) C-Reactive Protein, Quantitative 10.7 mg/dL (0.00-0.90) H Pro-B-Type Natriuretic Peptide 56464 pg/mL (0-125) H Total Protein 4.8 G/DL (6.4-8.2) L Albumin 1.2 G/DL (3.4-5.0) L Globulin 3.6 g/dL Albumin/Globulin Ratio 0.3 (1.0-2.7) L Intake and Output 06/08/20 06/09/20 19:00 07:00 Intake Total 1822.0000 ml 1469.37 ml Output Total 550 ml 670 ml Balance 1272.0000 ml 799.37 ml Free Water 90 ml IV Total 1622.0000 ml 1139.37 ml Tube Feeding 200 ml 240 ml Output Urine Total 550 ml 670 ml # Bowel Movements 1 5 Objective General Appearance: WD/WN, no apparent distress, alert EENT: PERRL/EOMI, normal ENT inspection Neck: non-tender, normal alignment, supple, normal inspection Cardiovascular: normal peripheral pulses, normal rate, regular rhythm, no gallop/murmur, no JVD Respiratory/Chest: Mech vent; decreased breath sounds, crackles/rales, rhonchi - bilaterally, expiratory wheezing Abdomen: normal bowel sounds, non tender, soft, no organomegaly, no mass Extremities: normal range of motion Neurologic: clinical counselor II-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 Continue daptomycin per ID=Dr Camejo. Pulmonary/Critical care=DR Allred. COVID NEG (2) Sepsis Assessment & Plan: Staph haemolyticus. Continue daptomycin and ceftriaxone per ID=Dr Camejo (3) Down's syndrome (4) Dysphagia Assessment & Plan: S/P PEG (5) Seizure disorder Assessment & Plan: Continue keppra and depakote (6) Hypothyroidism Assessment & Plan: Continue synthroid (7) Acute respiratory failure Assessment & Plan: Pulmonary = Dr Allred; [facility] Joni Copeland MD Jun 09, 2020 18:31
--- NOTE | 2020-06-09 19:25 | NUR ---
NURSE HAND-OFF REPORT: Latest Vital Signs: Temperature 99.0 , Pulse 73 , B/P 107 /45 , Respiratory Rate 30 , O2 SAT 93 , Mechanical Ventilator, O2 Flow Rate 15.0 . Vital Sign Comment: STABLE EKG Rhythm: Sinus Rhythm Rhythm change?: N MD Notified?: - MD Response: Latest Osorio Fall Score: 50 Fall Risk: High Risk Safety Measures: Call light Within Reach, Bed Alarm Zone 2, Side Rails Side Rails x3, Bed position Low and Locked. Fall Precautions: Yellow Socks Door Sign Patient Fall Education Report given to Marci LUJAN. Patient stable. Plan of care endorsed. Patient now on 4mcg of Levophed.
--- NOTE | 2020-06-09 19:30 | NUR ---
NURSE NOTES: Received pt awake, opened eyes to tactile stimulation, (more awake at this time), orally intubated on ac mode SR on the monitor, Bp been supported with Levophed drip at 4mcg/min, infusing to JODY PICC , site with drsg dry and intact. will continue to monitor.
[2020-06-09] MEDS: Dyna-Hex 2% Top Sol 2oz TOPIC SCH (19:54)
--- NOTE | 2020-06-09 20:00 | NUR ---
NURSE NOTES: Tolerating Jevity 1.2 at 20cc/hr with acceptable residuals. HOb kept elevated, on aspiration precaution.
--- NOTE | 2020-06-09 22:00 | NUR ---
NURSE NOTES: Had x1 soft to watery stools. Cleaned up pt.
[2020-06-10] VITALS (67 sets, daily range): BP systolic 77–136; BP diastolic 27–96
--- NOTE | 2020-06-10 | NUR ---
NURSE NOTES: Levophed drip down to 3mcg/min SBP >100
--- NOTE | 2020-06-10 02:00 | NUR ---
NURSE NOTES: Pts desat easily down to 88%, during bed bath, bagged with 100% and pt 02 sat back to >90s
[2020-06-10] MEDS: Meropenem 1 GM in NS 55 ML IVPB SCH ×2 (03:50→15:46)
--- NOTE | 2020-06-10 04:00 | NUR ---
NURSE NOTES: Had another episode of soft to watery stools, cleaned up pt.
[2020-06-10 05:30] LABS: HEMATOCRIT 24.9 % (37.0-47.0); HEMOGLOBIN 8.3 G/DL (12.0-16.0); MEAN CORPUSCULAR VOLUME 102 FL (80-99); PLATELET COUNT 73 K/UL (150-450); RED BLOOD COUNT 2.43 M/UL (4.20-5.40); RED CELL DISTRIBUTION WIDTH 13.5 % (11.6-14.8); WHITE BLOOD COUNT 10.3 K/UL (4.8-10.8)
[2020-06-10] MEDS: Hydrocortisone 100mg Inj IV SCH ×3 (05:45→21:06)
[2020-06-10] MEDS: Midodrine 10mg tab GT SCH ×3 (05:45→21:06)
[2020-06-10] MEDS: Valproic Acid 250mg/5ml Liquid GT SCH ×3 (05:45→21:05)
[2020-06-10 05:56] LABS: ALANINE AMINOTRANSFERASE 13 U/L (12-78); ALBUMIN 1.6 G/DL (3.4-5.0); ALBUMIN/GLOBULIN RATIO 0.6 (1.0-2.7); ALKALINE PHOSPHATASE 43 U/L (46-116); ANION GAP 13 mmol/L (5-15); ASPARTATE AMINO TRANSFERASE 26 U/L (15-37); BILIRUBIN,TOTAL 0.4 MG/DL (0.2-1.0); BLOOD UREA NITROGEN 31 mg/dL (7-18); CALCIUM 8.4 MG/DL (8.5-10.1); CARBON DIOXIDE 19 MMOL/L (21-32); CHLORIDE 111 MMOL/L (98-107); CREATINE KINASE 9 U/L (26-308); POTASSIUM 3.2 MMOL/L (3.5-5.1); SODIUM 143 MMOL/L (136-145)
--- NOTE | 2020-06-10 06:00 | NUR ---
NURSE NOTES: Pts left eye slightly swollen due to constant positioning with Rt Chest elevated as well as pulling of fluids. Aware gastroenterology professorTAI Dao. Will endorsed to TAI Hwang to notify Dr Allred.
[2020-06-10 06:14] LABS: PHOSPHORUS 3.1 MG/DL (2.5-4.9)
--- NOTE | 2020-06-10 07:10 | NUR ---
NURSE HAND-OFF REPORT: Latest Vital Signs: Temperature 98.2 , Pulse 73 , B/P 98 /44 , Respiratory Rate 30 , O2 SAT 92 , Mechanical Ventilator, O2 Flow Rate 15.0 . Vital Sign Comment: EKG Rhythm: Sinus Rhythm Rhythm change?: N MD Notified?: - MD Response: Latest Osorio Fall Score: 50 Fall Risk: High Risk Safety Measures: Call light Within Reach, Bed Alarm Zone 2, Side Rails Side Rails x3, Bed position Low and Locked. Fall Precautions: Yellow Socks Door Sign Patient Fall Education Report given to Vivien Doty RN.
--- NOTE | 2020-06-10 07:13 | NUR ---
NURSE NOTES: Patient received from Marci LUJAN. VSS. NSR. Patient stable AOx0 with no s/sx of pain or distress. Patient now able to make eye contact and track. Eyes MARTY but unable to determine size due to pupil shape. RR even and unlabored through ETT tube 7.5 lip line 22. Vent settings AC 30 500mL 60% P5. Cardiac sounds benign. BL lung sounds rales. Pitting edema +2 on BL hands and feet with weak pulses to dorsalis pedis. +1 edema to arms. Gregorio draining well to gravity with 50mL. LT UA PICC line dressing dry and intact, patent. IV fluids and Levophed at 3mcg infusing. Bowel sounds hyperactive. Gastric tube in place. Feeding held at this time prior to synthroid admiistration.Side rails upx2 call light within reach, bed low and locked. Will continue to monitor.
--- NOTE | 2020-06-10 07:57 | NUR ---
NURSE NOTES: Patient is hypoxic based on ABG. FIO2 changed to 80%
[2020-06-10] MEDS: Norepinephrine Bitartrate 16 MG in D5W 500ml 484 ML IV SCH (08:20)
[2020-06-10] MEDS: Pantoprazole Inj IV SCH (08:20)
--- NOTE | 2020-06-10 08:27 | NUR ---
RADIOLOGY DEPT., CHEST X-RAY DONE.-P.DYE
[2020-06-10] MEDS: Albuterol/Ipratropium 3ml neb HHN SCH ×3 (08:30→19:51)
--- NOTE | 2020-06-10 08:45 | NUR ---
NURSE NOTES: ABG reported to Dr. Allred. Orders received to increase peep to 10. RT called and notified. Addendum: 06/10/20 at 0853 by MIKE FUCHS RN Peep changed to 10 as ordered.
--- NOTE | 2020-06-10 09:23 | Nephrology Progress Note ---
Assessment/Plan Problem List: (1) LEANN (acute kidney injury) (2) Respiratory failure requiring intubation (3) Down's syndrome (4) Seizure disorder (5) Hypothyroidism Assessment Acute renal failure, likely due to hypotension Acute respiratory distress, hypoxia Seizure disorder Hypothyroidism Down syndrome Full code Fluid challenge with IV fluids and albumin Midodrine for BP above 100 systolic Check TSH level Check Correct level Monitor renal parameters Urine studies Per orders Plan June 10: Status quo. Labs reviewed. Phosphorus supplement IV given. Serum creatinine 2. Continue per consultants. June 09: Requires less pressors. Albumin bolus given. 1 dose of Lasix IV ordered as the patient severely edematous. Patient serum albumin is very low. Continue per consultants. June 08: Continues to be intubated. Labs reviewed. Serum creatinine 1.9 unchanged. Blood pressure more stable. Off 1 of the pressors. Continue to monitor renal parameters. Continue per consultants. Patient now on hydrocortisone 100 mg every 8 hours. Will decrease IV fluid. Normal saline down to 50 cc an hour. June 07: Intubated. Labs reviewed. Creatinine 1.9 unchanged. Continue same treatment plan. Per consultants. Overall poor prognosis since the patient remains on pressors and her pulmonary status is worsening. June 06: Remains intubated. Labs reviewed. Creatinine 1.9. Blood pressure systolic 90s. Continue per consultants. June 05: Remains intubated. Labs reviewed. Serum creatinine lower to 2. Vancomycin level lower. Remains hypotensive on pressors. Will increase midodrine to 10 mg every 8 hours. Continue per consultants. Continue to monitor renal parameters. June 04: Patient now in ICU. Intubated. On pressors. Labs reviewed. Will increase midodrine. Aim to keep blood pressure over 100 systolic. Will give albumin bolus. Will check vancomycin level which was elevated when checked previously on June 01. Will monitor renal parameters. Continue per consultants. Subjective ROS Limited/Unobtainable: Yes Objective Objective Last 24 Hour Vital Signs Date Time Temp Pulse Resp B/P (MAP) Pulse Ox O2 Delivery O2 Flow Rate FiO2 06/10/20 08:52 80 06/10/20 08:20 115/60 06/10/20 08:00 63 06/10/20 07:56 80 06/10/20 07:50 Mechanical Ventilator Mechanical Ventilator 06/10/20 07:47 60 06/10/20 07:30 64 29 107/58 (74) 94 06/10/20 07:00 107/58 06/10/20 07:00 68 29 110/50 (70) 92 06/10/20 06:30 69 30 98/44 (62) 94 06/10/20 06:00 73 30 96/49 (65) 92 06/10/20 06:00 98/44 06/10/20 05:30 83 32 99/47 (64) 94 06/10/20 05:15 84 30 60 06/10/20 05:00 84 35 95/59 (71) 87 06/10/20 05:00 99/47 06/10/20 04:30 73 30 95/44 (61) 91 06/10/20 04:00 80 06/10/20 04:00 Mechanical Ventilator Mechanical Ventilator 06/10/20 04:00 95/44 06/10/20 04:00 60 06/10/20 04:00 98.2 81 30 110/51 (70) 95 06/10/20 03:30 75 28 111/50 (70) 94 06/10/20 03:02 77 32 60 06/10/20 03:00 111/50 06/10/20 03:00 67 30 129/59 (82) 95 06/10/20 02:30 79 29 97/65 (76) 92 06/10/20 02:00 72 30 120/65 (83) 96 06/10/20 02:00 97/65 06/10/20 01:30 74 31 60 06/10/20 01:30 82 30 121/94 (103) 91 06/10/20 01:00 121/94 06/10/20 01:00 70 30 116/51 (72) 94 06/10/20 00:30 79 27 98/57 (71) 90 06/10/20 00:00 60 06/10/20 00:00 98/57 06/10/20 00:00 Mechanical Ventilator Mechanical Ventilator 06/10/20 00:00 72 06/10/20 00:00 98.2 83 23 111/57 (75) 87 06/09/20 23:30 71 30 96/54 (68) 93 06/09/20 23:00 77 30 98/51 (67) 95 06/09/20 23:00 96/54 06/09/20 22:51 82 33 60 06/09/20 22:30 80 30 124/55 (78) 94 06/09/20 22:00 124/55 06/09/20 22:00 82 30 95/53 (67) 93 06/09/20 21:30 84 29 104/45 (64) 92 06/09/20 21:12 72 30 60 06/09/20 21:00 104/45 06/09/20 21:00 79 27 100/50 (67) 94 06/09/20 20:30 83 27 113/99 (104) 93 06/09/20 20:00 72 06/09/20 20:00 98.4 83 28 114/57 (76) 93 06/09/20 20:00 60 06/09/20 20:00 113/99 06/09/20 20:00 Mechanical Ventilator Mechanical Ventilator 06/09/20 19:30 68 30 111/90 (97) 93 06/09/20 19:30 73 30 100 Mechanical Ventilator 60 80 30 60 06/09/20 19:00 107/45 06/09/20 18:45 73 30 107/45 (65) 93 06/09/20 18:30 99.0 71 30 113/52 (72) 93 06/09/20 18:01 82 27 116/58 (77) 90 06/09/20 18:00 116/58 06/09/20 17:30 81 26 109/51 (70) 91 06/09/20 17:00 80 25 104/58 (73) 98 06/09/20 17:00 104/48 06/09/20 16:30 81 27 90/53 (65) 93 06/09/20 16:00 72 30 98/42 (60) 93 06/09/20 16:00 Mechanical Ventilator Mechanical Ventilator 06/09/20 16:00 99.0 06/09/20 16:00 110/51 06/09/20 16:00 72 06/09/20 16:00 60 06/09/20 15:30 81 26 94/70 (78) 94 06/09/20 15:02 71 30 60 06/09/20 15:00 105/50 06/09/20 15:00 80 29 110/71 (84) 94 06/09/20 14:30 74 29 97/71 (80) 96 06/09/20 14:00 72 28 91/45 (60) 96 06/09/20 14:00 91/70 06/09/20 13:30 79 28 75/55 (62) 96 06/09/20 13:00 77 29 93/53 (66) 96 06/09/20 13:00 93/53 06/09/20 12:32 73 30 98 Mechanical Ventilator 60 75 30 60 06/09/20 12:30 74 29 84/47 (59) 96 06/09/20 12:00 Mechanical Ventilator Mechanical Ventilator 06/09/20 12:00 70 28 94/60 (71) 95 06/09/20 12:00 94/60 06/09/20 12:00 70 06/09/20 11:30 61 30 112/44 (66) 97 06/09/20 11:15 62 30 105/41 (62) 96 06/09/20 11:00 63 30 100/52 (68) 97 06/09/20 11:00 105/41 06/09/20 10:54 65 30 60 06/09/20 10:45 70 30 108/49 (68) 97 06/09/20 10:30 66 30 97/46 (63) 97 06/09/20 10:15 69 30 96/44 (61) 97 06/09/20 10:00 71 30 96/50 (65) 96 06/09/20 10:00 96/50 06/09/20 09:45 103/90 06/09/20 09:45 82 25 103/90 (94) 95 06/09/20 09:30 116/56 06/09/20 09:30 75 30 103/51 (68) 96 Intake and Output 06/09/20 06/10/20 19:00 07:00 Intake Total 1736.2545 ml 1389.96 ml Output Total 1025 ml 1390 ml Balance 711.2545 ml -0.04 ml Free Water 120 ml IV Total 1536.2545 ml 1029.96 ml Tube Feeding 200 ml 240 ml Output Urine Total 1025 ml 1390 ml # Bowel Movements 1 5 Current Medications Medications (Trade) Dose Ordered Sig/Katy Route PRN Reason Start Time Stop Time Status Last Admin Dose Admin Acetaminophen (Tylenol) 650 mg Q4H PRN GT FEVER 06/03/20 11:45 07/03/20 11:44 06/06/20 23:15 Albuterol/ Ipratropium (Albuterol/ Ipratropium) 3 ml Q4H PRN HHN Shortness of Breath 06/06/20 11:30 06/11/20 11:29 Albuterol/ Ipratropium (Albuterol/ Ipratropium) 3 ml TIDRT HHN 06/06/20 13:00 06/11/20 12:59 06/10/20 08:30 Chlorhexidine Gluconate (Alla-Hex 2%) 1 applic DAILY@2000 TOPIC 06/08/20 20:00 09/06/20 19:59 06/09/20 19:54 Clotrimazole (Lotrimin) 1 applic Q12HR TOPIC 06/07/20 13:00 09/05/20 12:59 06/10/20 08:21 Daptomycin 350 mg/ Sodium Chloride 55 ml @ 100 mls/hr Q48H IV 06/05/20 11:00 06/13/20 10:59 06/09/20 11:09 Dextrose (Dextrose 50%) 25 ml Q30M PRN IV Hypoglycemia 06/03/20 11:30 08/28/20 11:29 Dextrose (Dextrose 50%) 50 ml Q30M PRN IV Hypoglycemia 06/03/20 11:30 08/28/20 11:29 Hydrocortisone (Solu-CORTEF) 100 mg EVERY 8 HOURS IV 06/07/20 14:00 09/05/20 13:59 06/10/20 05:45 Levothyroxine Sodium (Synthroid) 75 mcg DAILY GT 06/04/20 09:00 06/30/20 08:59 06/10/20 08:20 Linezolid 300 ml @ 300 mls/hr Q12H IVPB 06/06/20 15:00 06/13/20 14:59 06/10/20 02:47 Meropenem 1 gm/ Sodium Chloride 55 ml @ 110 mls/hr Q12H IVPB 06/03/20 16:00 06/13/20 15:59 06/10/20 03:50 Micafungin Sodium 100 mg/Sodium Chloride 110 ml @ 110 mls/hr Q24H IVPB 06/04/20 14:00 06/11/20 13:59 06/09/20 15:07 Midodrine (Pro-Amatine) 10 mg Q8HR GT 06/05/20 14:00 09/03/20 13:59 06/10/20 05:45 Norepinephrine Bitartrate 16 mg/ Dextrose 500 ml @ 0 mls/hr Q24H IV 06/08/20 07:45 07/07/20 12:59 06/10/20 08:20 Ondansetron HCl (Zofran) 4 mg Q6H PRN IVP Nausea & Vomiting 06/03/20 12:00 06/29/20 11:59 Pantoprazole (Protonix) 40 mg DAILY IV 06/04/20 09:00 06/30/20 08:59 06/10/20 08:20 Phenylephrine HCl 50 mg/Dextrose 250 ml @ 0 mls/hr Q24H PRN IV For hypotension 06/06/20 17:45 07/06/20 17:44 06/08/20 01:49 Polyethylene Glycol (Miralax) 17 gm DAILYPRN PRN GT Constipation 06/03/20 12:00 06/29/20 11:59 Potassium Chloride 100 ml @ 50 mls/hr ONCE ONCE IVPB 06/10/20 08:00 06/10/20 09:59 06/10/20 08:19 Sodium Chloride 1,000 ml @ 50 mls/hr Q20H IV 06/08/20 09:32 07/08/20 09:31 06/09/20 22:51 Valproic Acid (Depakene) 500 mg EVERY 8 HOURS GT 06/03/20 14:00 06/29/20 21:59 06/10/20 05:45 Laboratory Tests 06/10/20 04:35: White Blood Count 10.3, Red Blood Count 2.43L, Hemoglobin 8.3L, Hematocrit 24.9L , Mean Corpuscular Volume 102H, Mean Corpuscular Hemoglobin 34.1H, Mean Corpuscular Hemoglobin Concent 33.3, Red Cell Distribution Width 13.5, Platelet Count 73L, Mean Platelet Volume 8.6, Neutrophils (%) (Auto) , Lymphocytes (%) ( Auto) , Monocytes (%) (Auto) , Eosinophils (%) (Auto) , Basophils (%) (Auto) , Differential Total Cells Counted 100, Neutrophils % (Manual) 84H, Lymphocytes % (Manual) 6L, Monocytes % (Manual) 10, Eosinophils % (Manual) 0, Basophils % ( Manual) 0, Band Neutrophils 0, Nucleated Red Blood Cells 1, Platelet Estimate DecreasedL, Platelet Morphology Normal, Hypochromasia 2+, Anisocytosis 1+, Macrocytosis 1+, Sodium Level 143, Potassium Level 3.2L, Chloride Level 111H, Carbon Dioxide Level 19L, Anion Gap 13, Blood Urea Nitrogen 31H, Creatinine 2.0H , Estimat Glomerular Filtration Rate 25.6, Glucose Level 109H, Calcium Level 8.4L, Phosphorus Level 3.1, Magnesium Level 2.0, Total Bilirubin 0.4, Aspartate Amino Transf (AST/SGOT) 26, Alanine Aminotransferase (ALT/SGPT) 13, Alkaline Phosphatase 43L, Total Creatine Kinase 9L, Total Protein 4.3L, Albumin 1.6L, Globulin 2.7, Albumin/Globulin Ratio 0.6L 06/10/20 07:42: Arterial Blood pH 7.390, Arterial Blood Partial Pressure CO2 26.3L, Arterial Blood Partial Pressure O2 54.0L, Arterial Blood HCO3 15.6*L, Arterial Blood Oxygen Saturation 88.0*L, Arterial Blood Base Excess -8.2L, Jonathan Test Positive Height (Feet): 5 Height (Inches): 3.00 Weight (Pounds): 172 General Appearance: no apparent distress Cardiovascular: normal rate Respiratory/Chest: decreased breath sounds Abdomen: distended Keron Pitt MD Jun 10, 2020 09:23
--- NOTE | 2020-06-10 09:40 | NUR ---
NURSE NOTES: Dr. Camejo called and message left regarding 4 bowel movement today. Asked if stool should be tested. Awaiting call back. Addendum: 06/10/20 at 1011 by MIKE FUCHS RN No new orders. Continue to monitor.
--- NOTE | 2020-06-10 10:10 | NUR ---
NURSE NOTES: At 1055 SBP 77. Levophed titrated up to 5mcg. After 5min, SBP 86. Levophed titrated again to 6mcg. After 5min at 1005, SBP in 90's. Will continue to monitor.
--- NOTE | 2020-06-10 11:01 | NUR ---
NURSE NOTES: Order received for feeding to be increased to 50mL/hr with [place] BID and Vitamin C. Feeding increased now to 30mL/hr. Will reassess for tolerance. Addendum: 06/10/20 at 1235 by MIKE FUCHS RN Also reported at this time to Dr. Allred, LT facial swelling, pitting edema and blue discoloration around joints of finger.
--- NOTE | 2020-06-10 11:02 | Pulmonolgy Critical Care Note ---
Critical Care - Asmt/Plan Problems: (1) Acute respiratory failure (2) Bacteremia (3) Pneumonia (4) Sepsis (5) HCAP (healthcare-associated pneumonia) (6) Seizure disorder (7) Down's syndrome Respiratory: adjust tidal volume, monitor respiratory rate, adjust FIO2, CXR, ABG Cardiac: continue pressors, continue to monitor HR/BP Renal: F/U I&O, keep IV fluid Infectious Disease: check cultures, continue antibiotics Gastrointestinal: start feedings Endocrine: monitor blood sugar, check TSH, check HgA1C Hematologic: monitor H/H Neurologic: PRN Ativan, PRN Morphine Affect: PRN ativan Prophylaxis: Protonix, Heparin Time Spent (Minutes): 40 Notes 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, 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, 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 with: nurses, consultants, home health care case managermanager program - Objective Last 24 Hour Vital Signs Date Time Temp Pulse Resp B/P (MAP) Pulse Ox O2 Delivery O2 Flow Rate FiO2 06/10/20 10:30 76 27 114/42 (66) 100 06/10/20 10:15 76 28 95/56 (69) 98 06/10/20 10:10 72 30 96/43 (60) 99 06/10/20 10:05 72 30 96/43 (60) 99 06/10/20 10:00 71 30 86/37 (53) 99 06/10/20 10:00 86/37 06/10/20 09:55 77/41 06/10/20 09:55 73 30 77/41 (53) 100 06/10/20 09:30 83 25 100/33 (55) 98 06/10/20 09:29 68 31 60 06/10/20 09:00 76 29 101/57 (72) 95 06/10/20 09:00 101/57 06/10/20 08:52 80 06/10/20 08:30 70 26 104/55 (71) 94 06/10/20 08:20 115/60 06/10/20 08:00 63 06/10/20 08:00 98.2 62 30 115/60 (78) 97 06/10/20 08:00 115/60 06/10/20 07:56 80 06/10/20 07:50 Mechanical Ventilator Mechanical Ventilator 06/10/20 07:47 60 06/10/20 07:30 64 29 107/58 (74) 94 06/10/20 07:16 64 30 60 06/10/20 07:00 107/58 06/10/20 07:00 68 29 110/50 (70) 92 06/10/20 06:30 69 30 98/44 (62) 94 06/10/20 06:00 73 30 96/49 (65) 92 06/10/20 06:00 98/44 06/10/20 05:30 83 32 99/47 (64) 94 06/10/20 05:15 84 30 60 06/10/20 05:00 84 35 95/59 (71) 87 06/10/20 05:00 99/47 06/10/20 04:30 73 30 95/44 (61) 91 06/10/20 04:00 80 06/10/20 04:00 Mechanical Ventilator Mechanical Ventilator 06/10/20 04:00 95/44 06/10/20 04:00 60 06/10/20 04:00 98.2 81 30 110/51 (70) 95 06/10/20 03:30 75 28 111/50 (70) 94 06/10/20 03:02 77 32 60 06/10/20 03:00 111/50 06/10/20 03:00 67 30 129/59 (82) 95 06/10/20 02:30 79 29 97/65 (76) 92 06/10/20 02:00 72 30 120/65 (83) 96 06/10/20 02:00 97/65 06/10/20 01:30 74 31 60 06/10/20 01:30 82 30 121/94 (103) 91 06/10/20 01:00 121/94 06/10/20 01:00 70 30 116/51 (72) 94 06/10/20 00:30 79 27 98/57 (71) 90 06/10/20 00:00 60 06/10/20 00:00 98/57 06/10/20 00:00 Mechanical Ventilator Mechanical Ventilator 06/10/20 00:00 72 06/10/20 00:00 98.2 83 23 111/57 (75) 87 06/09/20 23:30 71 30 96/54 (68) 93 06/09/20 23:00 77 30 98/51 (67) 95 06/09/20 23:00 96/54 06/09/20 22:51 82 33 60 06/09/20 22:30 80 30 124/55 (78) 94 06/09/20 22:00 124/55 06/09/20 22:00 82 30 95/53 (67) 93 06/09/20 21:30 84 29 104/45 (64) 92 06/09/20 21:12 72 30 60 06/09/20 21:00 104/45 06/09/20 21:00 79 27 100/50 (67) 94 06/09/20 20:30 83 27 113/99 (104) 93 06/09/20 20:00 72 06/09/20 20:00 98.4 83 28 114/57 (76) 93 06/09/20 20:00 60 06/09/20 20:00 113/99 06/09/20 20:00 Mechanical Ventilator Mechanical Ventilator 06/09/20 19:30 68 30 111/90 (97) 93 06/09/20 19:30 73 30 100 Mechanical Ventilator 60 80 30 60 06/09/20 19:00 107/45 06/09/20 18:45 73 30 107/45 (65) 93 06/09/20 18:30 99.0 71 30 113/52 (72) 93 06/09/20 18:01 82 27 116/58 (77) 90 06/09/20 18:00 116/58 06/09/20 17:30 81 26 109/51 (70) 91 06/09/20 17:00 80 25 104/58 (73) 98 06/09/20 17:00 104/48 06/09/20 16:30 81 27 90/53 (65) 93 06/09/20 16:00 72 30 98/42 (60) 93 06/09/20 16:00 Mechanical Ventilator Mechanical Ventilator 06/09/20 16:00 99.0 06/09/20 16:00 110/51 06/09/20 16:00 72 06/09/20 16:00 60 06/09/20 15:30 81 26 94/70 (78) 94 06/09/20 15:02 71 30 60 06/09/20 15:00 105/50 06/09/20 15:00 80 29 110/71 (84) 94 06/09/20 14:30 74 29 97/71 (80) 96 06/09/20 14:00 72 28 91/45 (60) 96 06/09/20 14:00 91/70 06/09/20 13:30 79 28 75/55 (62) 96 06/09/20 13:00 77 29 93/53 (66) 96 06/09/20 13:00 93/53 06/09/20 12:32 73 30 98 Mechanical Ventilator 60 75 30 60 06/09/20 12:30 74 29 84/47 (59) 96 06/09/20 12:00 Mechanical Ventilator Mechanical Ventilator 06/09/20 12:00 70 28 94/60 (71) 95 06/09/20 12:00 94/60 06/09/20 12:00 70 06/09/20 11:30 61 30 112/44 (66) 97 06/09/20 11:15 62 30 105/41 (62) 96 Status: sedated Condition: critical, grave HEENT: atraumatic, normocephalic Lungs: rales, rhonchi Heart: HR/BP stable Abdomen: feeding tube Extremities: edema Micro: Microbiology Date/Time Source Procedure Growth Status 06/09/20 16:14 Sputum Gram Stain Pending Resulted 06/09/20 16:14 Sputum Sputum Culture - Preliminary NO GROWTH Resulted Accucheck: 131 Critical Care - Subjective ROS Limited/Unobtainable: Yes Condition: critical EKG Rhythm: Sinus Rhythm FI02: 60 Vent Support Breath Rate: 30 Vent Support Mode: AC Vent Tidal Volume: 500 Sputum Amount: Small PEEP: 10.0 PIP: 45 Tube Feeding Amount: 20 I&O: Intake and Output 06/09/20 06/10/20 19:00 07:00 Intake Total 1736.2545 ml 1389.96 ml Output Total 1025 ml 1390 ml Balance 711.2545 ml -0.04 ml Free Water 120 ml IV Total 1536.2545 ml 1029.96 ml Tube Feeding 200 ml 240 ml Output Urine Total 1025 ml 1390 ml # Bowel Movements 1 5 ET-Tube: 7.5 ET Position: 22 Labs: Laboratory Tests Test 06/10/20 04:35 06/10/20 07:42 White Blood Count 10.3 K/UL (4.8-10.8) Red Blood Count 2.43 M/UL (4.20-5.40) L Hemoglobin 8.3 G/DL (12.0-16.0) L Hematocrit 24.9 % (37.0-47.0) L Mean Corpuscular Volume 102 FL (80-99) H Mean Corpuscular Hemoglobin 34.1 PG (27.0-31.0) H Mean Corpuscular Hemoglobin Concent 33.3 G/DL (32.0-36.0) Red Cell Distribution Width 13.5 % (11.6-14.8) Platelet Count 73 K/UL (150-450) L Mean Platelet Volume 8.6 FL (6.5-10.1) Neutrophils (%) (Auto) % (45.0-75.0) Lymphocytes (%) (Auto) % (20.0-45.0) Monocytes (%) (Auto) % (1.0-10.0) Eosinophils (%) (Auto) % (0.0-3.0) Basophils (%) (Auto) % (0.0-2.0) Differential Total Cells Counted 100 Neutrophils % (Manual) 84 % (45-75) H Lymphocytes % (Manual) 6 % (20-45) L Monocytes % (Manual) 10 % (1-10) Eosinophils % (Manual) 0 % (0-3) Basophils % (Manual) 0 % (0-2) Band Neutrophils 0 % (0-8) Nucleated Red Blood Cells 1 /100 WBC Platelet Estimate Decreased L Platelet Morphology Normal Hypochromasia 2+ Anisocytosis 1+ Macrocytosis 1+ Sodium Level 143 MMOL/L (136-145) Potassium Level 3.2 MMOL/L (3.5-5.1) L Chloride Level 111 MMOL/L (98-107) H Carbon Dioxide Level 19 MMOL/L (21-32) L Anion Gap 13 mmol/L (5-15) Blood Urea Nitrogen 31 mg/dL (7-18) H Creatinine 2.0 MG/DL (0.55-1.30) H Estimat Glomerular Filtration Rate 25.6 mL/min (>60) Glucose Level 109 MG/DL (74-106) H Calcium Level 8.4 MG/DL (8.5-10.1) L Phosphorus Level 3.1 MG/DL (2.5-4.9) Magnesium Level 2.0 MG/DL (1.8-2.4) Total Bilirubin 0.4 MG/DL (0.2-1.0) Aspartate Amino Transf (AST/SGOT) 26 U/L (15-37) Alanine Aminotransferase (ALT/SGPT) 13 U/L (12-78) Alkaline Phosphatase 43 U/L (46-116) L Total Creatine Kinase 9 U/L (26-308) L Total Protein 4.3 G/DL (6.4-8.2) L Albumin 1.6 G/DL (3.4-5.0) L Globulin 2.7 g/dL Albumin/Globulin Ratio 0.6 (1.0-2.7) L Arterial Blood pH 7.390 (7.350-7.450) Arterial Blood Partial Pressure CO2 26.3 mmHg (35.0-45.0) L Arterial Blood Partial Pressure O2 54.0 mmHg (75.0-100.0) L Arterial Blood HCO3 15.6 mmol/L (22.0-26.0) *L Arterial Blood Oxygen Saturation 88.0 % (95-100) *L Arterial Blood Base Excess -8.2 (-2-2) L Jonathan Test Positive Elayne Allred MD Jun 10, 2020 11:02
--- NOTE | 2020-06-10 11:47 | NUR ---
NURSE NOTES: FIO2 changed to 70%. Will continue to monitor.
--- NOTE | 2020-06-10 12:00 | NUR ---
NURSE NOTES: No residual from Gtube. Will increase feed to 40mL/hr. Will reassess in 1 hour.
--- NOTE | 2020-06-10 12:03 | Infectious Diseases Prog Note ---
Assessment/Plan ASSESSMENT: sp code blue 06/03 Septic Shock; pressors requirements improving Fever, SP Leukocytosis; SP -06/03 u/a no pyuria Pneumonia.- COVID 19 neg x3 Acute hypoxic resp failure on VM> NRB 15l 100%; hypoxic on ABG> now VDRF 06/03 - Fio2 80% >100% 06/05> 60% 06/09 >80% 06/10 -06/09 sp cx NTD 06/08 CXR: Extensive bilateral interstitial and airspace disease appears similar to the prior exam. Moderate to large bilateral pleural effusions appear unchanged. 06/05 CXR: Increasing left upper lobe dense consolidation and likely increasing bilateral pleural fluid. Persistent diffuse dense consolidation elsewhere -06/03 sp cx normal resp marie -06/02 CXR: Increased atelectasis of the right lung, since prior exam of 3 days earlier. New or increased right pleural effusion. Increased left basilar consolidation and/or pleural fluid -COVID Rapid PCR neg 05/31, 05/31, 06/03 -05/30 spc x Group G strep -05/30 CXR: Reduced lung volumes. Patchy bilateral predominantly interstitial pulmonary opacities. Could be from edema and/or pneumonia. There is a broader differential. Persistent, high grade bacteremia- r/o endocarditis -05/30 Bcx 4/4 sets S. haemolyticus; 05/31 Bcx 3/4 S/ epi; 06/04 Bcx 1.4 S. warnerri; 06/06 Bcx NTD -2d echo: no vegetaions seen ua/ wbc 10-15, nit neg, leuk +1; ucx Neg LEANN; -supratherapeutic vanco levels -Seizure disorder. - Hypothyroidism. - Down syndrome. History of PEG tube placement. CT resident PLAN: Dc empiric linezolid #5 no MRSA in sp cx and thrombocytopenia Cont Daptomycin #9(abx d #12) for GPC bacteremia in view of LEANN [monitor CK, was 51 on 06/03] Cont Meropenem#8 (abx d #12) given resp decompensation Cont Micafungin #7/7 f/u Repeat BCx given persistent bacteremia CT chest when stable enough, not currently given on FiO2 100% and pressors If pleural effusions, should be tapped to r/o empyema, send for bacterial cx as well as cell count and diff F/u cx of exudate around G-tube Trend GIB (black stools) 06/05 SP Azithromycin #7/7 06/03 SP Ceftriaxone #2 06/02 SP IV Vancomycin #4, Zosyn #4 05/30 SP Cefepime x1, Flagyl x1 - Monitor CBC, BMP. -f/u Cocci ab, CrAg .f/u Repeat cx - COVID neg x3; ok to dc isolation as afebrile >48hrs, alternative diagnosis - Monitor chest x-ray. - Monitor the patient's clinical course and labs. Based on those, we will do further recommendation. Thank you, Dr. Allred, for allowing me to participate in the care of this patient. I will follow the patient with you at this hospitalization. Discussed with RN Subjective Allergies: Coded Allergies: No Known Allergies (Unverified , 10/16/18) afebrile >48hrs remains intubated, Fio2 down to 60% levo down to 4 and james down to 20 Objective Last 24 Hour Vital Signs Date Time Temp Pulse Resp B/P (MAP) Pulse Ox O2 Delivery O2 Flow Rate FiO2 06/10/20 11:53 Mechanical Ventilator Mechanical Ventilator 06/10/20 11:47 70 06/10/20 11:30 84 22 106/49 (68) 97 06/10/20 11:15 78 26 104/46 (65) 99 06/10/20 11:00 78 25 103/27 (52) 96 06/10/20 10:45 67 29 103/49 (67) 99 06/10/20 10:30 76 27 114/42 (66) 100 06/10/20 10:15 76 28 95/56 (69) 98 06/10/20 10:10 72 30 96/43 (60) 99 06/10/20 10:05 72 30 96/43 (60) 99 06/10/20 10:00 71 30 86/37 (53) 99 06/10/20 10:00 86/37 06/10/20 09:55 77/41 06/10/20 09:55 73 30 77/41 (53) 100 06/10/20 09:30 83 25 100/33 (55) 98 06/10/20 09:29 68 31 60 06/10/20 09:00 76 29 101/57 (72) 95 06/10/20 09:00 101/57 06/10/20 08:52 80 06/10/20 08:30 70 26 104/55 (71) 94 06/10/20 08:20 115/60 06/10/20 08:00 63 06/10/20 08:00 98.2 62 30 115/60 (78) 97 06/10/20 08:00 115/60 06/10/20 07:56 80 06/10/20 07:50 Mechanical Ventilator Mechanical Ventilator 06/10/20 07:47 60 06/10/20 07:30 64 29 107/58 (74) 94 06/10/20 07:16 64 30 60 06/10/20 07:00 107/58 06/10/20 07:00 68 29 110/50 (70) 92 06/10/20 06:30 69 30 98/44 (62) 94 06/10/20 06:00 73 30 96/49 (65) 92 06/10/20 06:00 98/44 06/10/20 05:30 83 32 99/47 (64) 94 06/10/20 05:15 84 30 60 06/10/20 05:00 84 35 95/59 (71) 87 06/10/20 05:00 99/47 06/10/20 04:30 73 30 95/44 (61) 91 06/10/20 04:00 80 06/10/20 04:00 Mechanical Ventilator Mechanical Ventilator 06/10/20 04:00 95/44 06/10/20 04:00 60 06/10/20 04:00 98.2 81 30 110/51 (70) 95 06/10/20 03:30 75 28 111/50 (70) 94 06/10/20 03:02 77 32 60 06/10/20 03:00 111/50 06/10/20 03:00 67 30 129/59 (82) 95 06/10/20 02:30 79 29 97/65 (76) 92 06/10/20 02:00 72 30 120/65 (83) 96 06/10/20 02:00 97/65 06/10/20 01:30 74 31 60 06/10/20 01:30 82 30 121/94 (103) 91 06/10/20 01:00 121/94 06/10/20 01:00 70 30 116/51 (72) 94 9/2/20 00:30 79 27 98/57 (71) 90 06/10/20 00:00 60 06/10/20 00:00 98/57 06/10/20 00:00 Mechanical Ventilator Mechanical Ventilator 06/10/20 00:00 72 06/10/20 00:00 98.2 83 23 111/57 (75) 87 06/09/20 23:30 71 30 96/54 (68) 93 06/09/20 23:00 77 30 98/51 (67) 95 06/09/20 23:00 96/54 06/09/20 22:51 82 33 60 06/09/20 22:30 80 30 124/55 (78) 94 06/09/20 22:00 124/55 06/09/20 22:00 82 30 95/53 (67) 93 06/09/20 21:30 84 29 104/45 (64) 92 06/09/20 21:12 72 30 60 06/09/20 21:00 104/45 06/09/20 21:00 79 27 100/50 (67) 94 06/09/20 20:30 83 27 113/99 (104) 93 06/09/20 20:00 72 06/09/20 20:00 98.4 83 28 114/57 (76) 93 06/09/20 20:00 60 06/09/20 20:00 113/99 06/09/20 20:00 Mechanical Ventilator Mechanical Ventilator 06/09/20 19:30 68 30 111/90 (97) 93 06/09/20 19:30 73 30 100 Mechanical Ventilator 60 80 30 60 06/09/20 19:00 107/45 06/09/20 18:45 73 30 107/45 (65) 93 06/09/20 18:30 99.0 71 30 113/52 (72) 93 06/09/20 18:01 82 27 116/58 (77) 90 06/09/20 18:00 116/58 06/09/20 17:30 81 26 109/51 (70) 91 06/09/20 17:00 80 25 104/58 (73) 98 06/09/20 17:00 104/48 06/09/20 16:30 81 27 90/53 (65) 93 06/09/20 16:00 72 30 98/42 (60) 93 06/09/20 16:00 Mechanical Ventilator Mechanical Ventilator 06/09/20 16:00 99.0 06/09/20 16:00 110/51 06/09/20 16:00 72 06/09/20 16:00 60 06/09/20 15:30 81 26 94/70 (78) 94 06/09/20 15:02 71 30 60 06/09/20 15:00 105/50 06/09/20 15:00 80 29 110/71 (84) 94 06/09/20 14:30 74 29 97/71 (80) 96 06/09/20 14:00 72 28 91/45 (60) 96 06/09/20 14:00 91/70 06/09/20 13:30 79 28 75/55 (62) 96 06/09/20 13:00 77 29 93/53 (66) 96 06/09/20 13:00 93/53 06/09/20 12:32 73 30 98 Mechanical Ventilator 60 75 30 60 06/09/20 12:30 74 29 84/47 (59) 96 06/09/20 12:00 Mechanical Ventilator Mechanical Ventilator 06/09/20 12:00 70 28 94/60 (71) 95 06/09/20 12:00 94/60 06/09/20 12:00 70 Height (Feet): 5 Height (Inches): 3.00 Weight (Pounds): 172 HEENT: No pale conjunctivae. No icterus. ETT in place NECK: No lymphadenopathy. CHEST: Coarse breathing sounds. HEART: S1 and S2. ABDOMEN: Soft. PEG tube in place. EXTREMITIES: No cyanosis at this time . SKIN: no rash Microbiology Date/Time Source Procedure Growth Status 06/09/20 16:14 Sputum Gram Stain Pending Resulted 06/09/20 16:14 Sputum Sputum Culture - Preliminary NO GROWTH Resulted Laboratory Tests Test 06/10/20 04:35 06/10/20 07:42 White Blood Count 10.3 K/UL (4.8-10.8) Red Blood Count 2.43 M/UL (4.20-5.40) L Hemoglobin 8.3 G/DL (12.0-16.0) L Hematocrit 24.9 % (37.0-47.0) L Mean Corpuscular Volume 102 FL (80-99) H Mean Corpuscular Hemoglobin 34.1 PG (27.0-31.0) H Mean Corpuscular Hemoglobin Concent 33.3 G/DL (32.0-36.0) Red Cell Distribution Width 13.5 % (11.6-14.8) Platelet Count 73 K/UL (150-450) L Mean Platelet Volume 8.6 FL (6.5-10.1) Neutrophils (%) (Auto) % (45.0-75.0) Lymphocytes (%) (Auto) % (20.0-45.0) Monocytes (%) (Auto) % (1.0-10.0) Eosinophils (%) (Auto) % (0.0-3.0) Basophils (%) (Auto) % (0.0-2.0) Differential Total Cells Counted 100 Neutrophils % (Manual) 84 % (45-75) H Lymphocytes % (Manual) 6 % (20-45) L Monocytes % (Manual) 10 % (1-10) Eosinophils % (Manual) 0 % (0-3) Basophils % (Manual) 0 % (0-2) Band Neutrophils 0 % (0-8) Nucleated Red Blood Cells 1 /100 WBC Platelet Estimate Decreased L Platelet Morphology Normal Hypochromasia 2+ Anisocytosis 1+ Macrocytosis 1+ Sodium Level 143 MMOL/L (136-145) Potassium Level 3.2 MMOL/L (3.5-5.1) L Chloride Level 111 MMOL/L (98-107) H Carbon Dioxide Level 19 MMOL/L (21-32) L Anion Gap 13 mmol/L (5-15) Blood Urea Nitrogen 31 mg/dL (7-18) H Creatinine 2.0 MG/DL (0.55-1.30) H Estimat Glomerular Filtration Rate 25.6 mL/min (>60) Glucose Level 109 MG/DL (74-106) H Calcium Level 8.4 MG/DL (8.5-10.1) L Phosphorus Level 3.1 MG/DL (2.5-4.9) Magnesium Level 2.0 MG/DL (1.8-2.4) Total Bilirubin 0.4 MG/DL (0.2-1.0) Aspartate Amino Transf (AST/SGOT) 26 U/L (15-37) Alanine Aminotransferase (ALT/SGPT) 13 U/L (12-78) Alkaline Phosphatase 43 U/L (46-116) L Total Creatine Kinase 9 U/L (26-308) L Total Protein 4.3 G/DL (6.4-8.2) L Albumin 1.6 G/DL (3.4-5.0) L Globulin 2.7 g/dL Albumin/Globulin Ratio 0.6 (1.0-2.7) L Arterial Blood pH 7.390 (7.350-7.450) Arterial Blood Partial Pressure CO2 26.3 mmHg (35.0-45.0) L Arterial Blood Partial Pressure O2 54.0 mmHg (75.0-100.0) L Arterial Blood HCO3 15.6 mmol/L (22.0-26.0) *L Arterial Blood Oxygen Saturation 88.0 % (95-100) *L Arterial Blood Base Excess -8.2 (-2-2) L Jonathan Test Positive Current Medications Medications (Trade) Dose Ordered Sig/Katy Route PRN Reason Start Time Stop Time Status Last Admin Dose Admin Acetaminophen (Tylenol) 650 mg Q4H PRN GT FEVER 06/03/20 11:45 07/03/20 11:44 06/06/20 23:15 Albuterol/ Ipratropium (Albuterol/ Ipratropium) 3 ml Q4H PRN HHN Shortness of Breath 06/06/20 11:30 06/11/20 11:29 Albuterol/ Ipratropium (Albuterol/ Ipratropium) 3 ml TIDRT HHN 06/06/20 13:00 06/11/20 12:59 06/10/20 08:30 Ascorbic Acid (Vitamin C) 250 mg DAILY GT 06/11/20 09:00 07/11/20 08:59 Chlorhexidine Gluconate (Alla-Hex 2%) 1 applic DAILY@1999 TOPIC 06/08/20 20:00 09/06/20 19:59 06/09/20 19:54 Clotrimazole (Lotrimin) 1 applic Q12HR TOPIC 06/07/20 13:00 09/05/20 12:59 06/10/20 08:21 Daptomycin 350 mg/ Sodium Chloride 55 ml @ 100 mls/hr Q48H IV 06/05/20 11:00 06/13/20 10:59 06/09/20 11:09 Dextrose (Dextrose 50%) 25 ml Q30M PRN IV Hypoglycemia 06/03/20 11:30 08/28/20 11:29 Dextrose (Dextrose 50%) 50 ml Q30M PRN IV Hypoglycemia 06/03/20 11:30 08/28/20 11:29 Hydrocortisone (Solu-CORTEF) 100 mg EVERY 8 HOURS IV 06/07/20 14:00 09/05/20 13:59 06/10/20 05:45 Levothyroxine Sodium (Synthroid) 75 mcg DAILY GT 06/04/20 09:00 06/30/20 08:59 06/10/20 08:20 Linezolid 300 ml @ 300 mls/hr Q12H IVPB 06/06/20 15:00 06/13/20 14:59 06/10/20 02:47 Meropenem 1 gm/ Sodium Chloride 55 ml @ 110 mls/hr Q12H IVPB 06/03/20 16:00 06/13/20 15:59 06/10/20 03:50 Micafungin Sodium 100 mg/Sodium Chloride 110 ml @ 110 mls/hr Q24H IVPB 06/04/20 14:00 06/11/20 13:59 06/09/20 15:07 Midodrine (Pro-Amatine) 10 mg Q8HR GT 06/05/20 14:00 09/03/20 13:59 06/10/20 05:45 Norepinephrine Bitartrate 16 mg/ Dextrose 500 ml @ 0 mls/hr Q24H IV 06/08/20 07:45 07/07/20 12:59 06/10/20 08:20 Ondansetron HCl (Zofran) 4 mg Q6H PRN IVP Nausea & Vomiting 06/03/20 12:00 06/29/20 11:59 Pantoprazole (Protonix) 40 mg DAILY IV 06/04/20 09:00 06/30/20 08:59 06/10/20 08:20 Phenylephrine HCl 50 mg/Dextrose 250 ml @ 0 mls/hr Q24H PRN IV For hypotension 06/06/20 17:45 07/06/20 17:44 06/08/20 01:49 Polyethylene Glycol (Miralax) 17 gm DAILYPRN PRN GT Constipation 06/03/20 12:00 06/29/20 11:59 Sodium Chloride 1,000 ml @ 50 mls/hr Q20H IV 06/08/20 09:32 07/08/20 09:31 06/09/20 22:51 Valproic Acid (Depakene) 500 mg EVERY 8 HOURS GT 06/03/20 14:00 06/29/20 21:59 06/10/20 05:45 Suki Camejo M.D. Jun 10, 2020 12:03
--- NOTE | 2020-06-10 12:28 | Diagnostic Imaging Report ---
Indication: Dyspnea Technique: One view of the chest Comparison: 06/08/2020 Findings: Stable satisfactory position of endotracheal tube, left arm PICC. Bilateral extensive diffuse infiltrates versus edema and bilateral large pleural effusions persist Impression: Unchanged, over 2 days, findings as above.
--- NOTE | 2020-06-10 13:00 | NUR ---
NURSE NOTES: Residual of 50mL. Will monitor feeding for now.
[2020-06-10] MEDS: Micafungin 100 MG in NS 110 ML IVPB SCH (13:39)
[2020-06-10] MEDS ORDERED: Tubing IV Secondary IV ONE (13:47)
--- NOTE | 2020-06-10 14:00 | NUR ---
NURSE NOTES: Residual of 10mLs. Feeding continued and medications given. Patient continues to be stable with no s/sx of pain or distress. Appears more alert and is able to follow simple commands. Able to squeeze hand when asked with strength 2/5 BL. Urine output 60mLs. No BM at this time. Patient repositioned and suctioned.
--- NOTE | 2020-06-10 16:10 | NUR ---
NURSE NOTES: Patient cleaned and prior to lowering the head of the bed, patient desated to 84%. RT called and Fio2 changed to 100%. Patient had 1 BM, soft. urine output 50mLs. Levophed running at 6mcg and abx. Feeding running at 40mL/hr with 10mL residual. Oral care and suctioning performed.
--- NOTE | 2020-06-10 17:15 | NUR ---
NURSE NOTES: Patient's SBP consistantly over 110 and as high as 130. Levophed titrated to 4mcg. Addendum: 06/10/20 at 1739 by MIKE FUCHS RN FIO2 changed to 80%.
--- NOTE | 2020-06-10 17:31 | Internal Med Progress Note ---
Subjective Physician Name Guillaume Hawk Attending Physician Elayne Allred MD Current Medications Medications (Trade) Dose Ordered Sig/Katy Route PRN Reason Start Time Stop Time Status Last Admin Dose Admin Acetaminophen (Tylenol) 650 mg Q4H PRN GT FEVER 06/03/20 11:45 07/03/20 11:44 06/06/20 23:15 Albuterol/ Ipratropium (Albuterol/ Ipratropium) 3 ml Q4H PRN HHN Shortness of Breath 06/06/20 11:30 06/11/20 11:29 Albuterol/ Ipratropium (Albuterol/ Ipratropium) 3 ml TIDRT HHN 06/06/20 13:00 06/11/20 12:59 06/10/20 14:28 Ascorbic Acid (Vitamin C) 250 mg DAILY GT 06/11/20 09:00 07/11/20 08:59 Chlorhexidine Gluconate (Alla-Hex 2%) 1 applic DAILY@1999 TOPIC 06/08/20 20:00 09/06/20 19:59 06/09/20 19:54 Clotrimazole (Lotrimin) 1 applic Q12HR TOPIC 06/07/20 13:00 09/05/20 12:59 06/10/20 08:21 Daptomycin 350 mg/ Sodium Chloride 55 ml @ 100 mls/hr Q48H IV 06/05/20 11:00 06/13/20 10:59 06/09/20 11:09 Dextrose (Dextrose 50%) 25 ml Q30M PRN IV Hypoglycemia 06/03/20 11:30 08/28/20 11:29 Dextrose (Dextrose 50%) 50 ml Q30M PRN IV Hypoglycemia 06/03/20 11:30 08/28/20 11:29 Hydrocortisone (Solu-CORTEF) 100 mg EVERY 8 HOURS IV 06/07/20 14:00 09/05/20 13:59 06/10/20 13:39 Levothyroxine Sodium (Synthroid) 75 mcg DAILY GT 06/04/20 09:00 06/30/20 08:59 06/10/20 08:20 Meropenem 1 gm/ Sodium Chloride 55 ml @ 110 mls/hr Q12H IVPB 06/03/20 16:00 06/13/20 15:59 06/10/20 15:46 Micafungin Sodium 100 mg/Sodium Chloride 110 ml @ 110 mls/hr Q24H IVPB 06/04/20 14:00 06/11/20 13:59 06/10/20 13:39 Midodrine (Pro-Amatine) 10 mg Q8HR GT 06/05/20 14:00 09/03/20 13:59 06/10/20 13:39 Norepinephrine Bitartrate 16 mg/ Dextrose 500 ml @ 0 mls/hr Q24H IV 06/08/20 07:45 07/07/20 12:59 06/10/20 08:20 Ondansetron HCl (Zofran) 4 mg Q6H PRN IVP Nausea & Vomiting 06/03/20 12:00 06/29/20 11:59 Pantoprazole (Protonix) 40 mg DAILY IV 06/04/20 09:00 06/30/20 08:59 06/10/20 08:20 Phenylephrine HCl 50 mg/Dextrose 250 ml @ 0 mls/hr Q24H PRN IV For hypotension 06/06/20 17:45 07/06/20 17:44 06/08/20 01:49 Polyethylene Glycol (Miralax) 17 gm DAILYPRN PRN GT Constipation 06/03/20 12:00 06/29/20 11:59 Sodium Chloride 1,000 ml @ 50 mls/hr Q20H IV 06/08/20 09:32 07/08/20 09:31 06/10/20 14:03 Valproic Acid (Depakene) 500 mg EVERY 8 HOURS GT 06/03/20 14:00 06/29/20 21:59 06/10/20 13:39 Allergies: Coded Allergies: No Known Allergies (Unverified , 10/16/18) Subjective in ICU, remained intubated on the vent, open eyes, unable to follow command. Objective Last Vital Signs Date Time Temp Pulse Resp B/P (MAP) Pulse Ox O2 Delivery O2 Flow Rate FiO2 06/10/20 16:30 70 29 136/71 (92) 100 06/10/20 16:05 100 06/10/20 16:00 Mechanical Ventilator Mechanical Ventilator 06/10/20 16:00 97.8 06/04/20 00:00 15.0 Laboratory Tests Test 06/10/20 04:35 06/10/20 07:42 White Blood Count 10.3 K/UL (4.8-10.8) Red Blood Count 2.43 M/UL (4.20-5.40) L Hemoglobin 8.3 G/DL (12.0-16.0) L Hematocrit 24.9 % (37.0-47.0) L Mean Corpuscular Volume 102 FL (80-99) H Mean Corpuscular Hemoglobin 34.1 PG (27.0-31.0) H Mean Corpuscular Hemoglobin Concent 33.3 G/DL (32.0-36.0) Red Cell Distribution Width 13.5 % (11.6-14.8) Platelet Count 73 K/UL (150-450) L Mean Platelet Volume 8.6 FL (6.5-10.1) Neutrophils (%) (Auto) % (45.0-75.0) Lymphocytes (%) (Auto) % (20.0-45.0) Monocytes (%) (Auto) % (1.0-10.0) Eosinophils (%) (Auto) % (0.0-3.0) Basophils (%) (Auto) % (0.0-2.0) Differential Total Cells Counted 100 Neutrophils % (Manual) 84 % (45-75) H Lymphocytes % (Manual) 6 % (20-45) L Monocytes % (Manual) 10 % (1-10) Eosinophils % (Manual) 0 % (0-3) Basophils % (Manual) 0 % (0-2) Band Neutrophils 0 % (0-8) Nucleated Red Blood Cells 1 /100 WBC Platelet Estimate Decreased L Platelet Morphology Normal Hypochromasia 2+ Anisocytosis 1+ Macrocytosis 1+ Sodium Level 143 MMOL/L (136-145) Potassium Level 3.2 MMOL/L (3.5-5.1) L Chloride Level 111 MMOL/L (98-107) H Carbon Dioxide Level 19 MMOL/L (21-32) L Anion Gap 13 mmol/L (5-15) Blood Urea Nitrogen 31 mg/dL (7-18) H Creatinine 2.0 MG/DL (0.55-1.30) H Estimat Glomerular Filtration Rate 25.6 mL/min (>60) Glucose Level 109 MG/DL (74-106) H Calcium Level 8.4 MG/DL (8.5-10.1) L Phosphorus Level 3.1 MG/DL (2.5-4.9) Magnesium Level 2.0 MG/DL (1.8-2.4) Total Bilirubin 0.4 MG/DL (0.2-1.0) Aspartate Amino Transf (AST/SGOT) 26 U/L (15-37) Alanine Aminotransferase (ALT/SGPT) 13 U/L (12-78) Alkaline Phosphatase 43 U/L (46-116) L Total Creatine Kinase 9 U/L (26-308) L Total Protein 4.3 G/DL (6.4-8.2) L Albumin 1.6 G/DL (3.4-5.0) L Globulin 2.7 g/dL Albumin/Globulin Ratio 0.6 (1.0-2.7) L Arterial Blood pH 7.390 (7.350-7.450) Arterial Blood Partial Pressure CO2 26.3 mmHg (35.0-45.0) L Arterial Blood Partial Pressure O2 54.0 mmHg (75.0-100.0) L Arterial Blood HCO3 15.6 mmol/L (22.0-26.0) *L Arterial Blood Oxygen Saturation 88.0 % (95-100) *L Arterial Blood Base Excess -8.2 (-2-2) L Jonathan Test Positive Microbiology Date/Time Source Procedure Growth Status 06/09/20 16:14 Sputum Gram Stain - Final Resulted 06/09/20 16:14 Sputum Sputum Culture - Preliminary NO GROWTH Resulted Intake and Output 06/09/20 06/10/20 19:00 07:00 Intake Total 1736.2545 ml 1389.96 ml Output Total 1025 ml 1390 ml Balance 711.2545 ml -0.04 ml Free Water 120 ml IV Total 1536.2545 ml 1029.96 ml Tube Feeding 200 ml 240 ml Output Urine Total 1025 ml 1390 ml # Bowel Movements 1 5 Objective General: remain intubated, unable to follow command, open eyes. HEENT: NCAT, sclera anicteric, PERRL, ET Tube. Neck: Supple, no significant jugular venous distention, Lungs: mechanical breath sounds decreased air at the bases, no Wheeze or Rales. Heart: Regular rate and rhythm, normal S1/S2, no murmurs/gallops Abdomen: soft, not tender, not distended. + bowel sounds, Morbid Obesity, PEG site intact. Extremities: No Cyanosis , clubbing, upper extremities edema. left upper extremity PICC line. Neuro: limited secondary to patient status, unable to follow command, bilateral upper and lower extremities contracted. Assessment/Plan Assessment/Plan Problem List: (1) HCAP (healthcare-associated pneumonia) (2) Sepsis (3) Down's syndrome (4) Dysphagia S/P PEG (5) Seizure disorder (6) Hypothyroidism (7) Acute Hypoxemic respiratory failure Plan: Tolerated tube feeding @ 40 cc/hr Follow-up with laboratory and cultures Cont Daptomycin #9(abx d #12) for GPC bacteremia in view of LEANN [monitor CK, was 51 on 06/03] Cont Meropenem#8 (abx d #12) given resp decompensation Cont Micafungin #7/7 COVID neg x3; Guillaume Hawk MD Jun 10, 2020 17:31
--- NOTE | 2020-06-10 19:25 | NUR ---
NURSE HAND-OFF REPORT: Latest Vital Signs: Temperature 97.8 , Pulse 64 , B/P 117 /60 , Respiratory Rate 29 , O2 SAT 100 , Mechanical Ventilator, O2 Flow Rate 15.0 . Vital Sign Comment: STABLE. Titrated Levophed to 2mcg at 1830. RN Sowmya aware. EKG Rhythm: Sinus Rhythm Rhythm change?: N Notified?: - MD Response: Latest Osorio Fall Score: 50 Fall Risk: High Risk Safety Measures: Call light Within Reach, Bed Alarm Zone 2, Side Rails Side Rails x3, Bed position Low and Locked. Fall Precautions: Yellow Socks Door Sign Patient Fall Education Report given to Sowmya LUJAN. Patient stable. Plan of care endorsed. RN aware that feeding is on hold due to a residual of 150mLs at 1800. Reassessed at 1900 and residual found to be 60mLs.
--- NOTE | 2020-06-10 19:28 | NUR ---
NURSE NOTES: Received report from TAI Hwang. Pt opens eyes spontaneously; follow simple commands. Pt is Afebrile, and SR on youth nutritional monitor Intubated on 06/04 with 7.5 ETT noted 22 cm at the lip line. Settings: AC/VC30 TV 500 FiO2 80% Peep 10 G-Tube noted, CDI. Jevity 1.2 at 50 cc/hr. HOLD now for residual 150cc per AMRN. Gregorio noted draining pale, yellow urine 50mL/hr Skin: see assessment. Pt has PICC JODY with double lumen, CDI Running NS at 50 mL/hr and Levophed at 2 mcg/min. Safe measures observed. Side rails up x 2 and padded per seizure precaution. No acute distress noted. Will continue to monitor.
[2020-06-10] MEDS: Dyna-Hex 2% Top Sol 2oz TOPIC SCH (19:42)
--- NOTE | 2020-06-10 20:00 | NUR ---
NURSE NOTES: Volume has not been delivered. Suctioned several times. RT and promary RN are at the bedside to fix the volume.
--- NOTE | 2020-06-10 20:30 | NUR ---
NURSE NOTES: BP decrease 81/54. Levo increased to 4mcg. Notified to chargemaster specialist. Pt is asymptomatic. Will continue to monitor.
--- NOTE | 2020-06-10 21:00 | NUR ---
NURSE NOTES: PM med given. Pt is comfortably asleep. Afebrile and VSS. BP is stable with Levo 4mcgs. Safety measures observed. Will continue to monitor.
--- NOTE | 2020-06-10 23:00 | NUR ---
NURSE NOTES: Suctioned and oral care provided. Afebrile and VSS. Feeding kept holding due to high residual. BP stable with Levo 4mcg/min. Safety measures observed. Will continue to monitor.
[2020-06-11] VITALS (51 sets, daily range): BP systolic 94–150; BP diastolic 43–115
--- NOTE | 2020-06-11 01:30 | NUR ---
NURSE NOTES: Am care provided Changed soiled gowns, linens, and sliders Moderate soft BM noted Prophylaxis Optiform applied on sacram Suctioned and oral care provided Afebrile and VSS PICC line and IV sites are CDI Gregorio is intact Safety measures observed and will continue to monitor
[2020-06-11] MEDS: Meropenem 1 GM in NS 55 ML IVPB SCH ×2 (03:09→16:00)
--- NOTE | 2020-06-11 03:30 | NUR ---
NURSE NOTES: Suctioned and oral care provided Afebrile and VSS PICC line and IV sites are CDI Gregorio is intact Safety measures observed and will continue to monitor
[2020-06-11 05:07] LABS: HEMATOCRIT 26.9 % (37.0-47.0); HEMOGLOBIN 8.8 G/DL (12.0-16.0); MEAN CORPUSCULAR VOLUME 102 FL (80-99); PLATELET COUNT 68 K/UL (150-450); RED BLOOD COUNT 2.63 M/UL (4.20-5.40); RED CELL DISTRIBUTION WIDTH 13.5 % (11.6-14.8); WHITE BLOOD COUNT 9.7 K/UL (4.8-10.8)
[2020-06-11 05:33] LABS: ALANINE AMINOTRANSFERASE 12 U/L (12-78); ALBUMIN 1.6 G/DL (3.4-5.0); ALBUMIN/GLOBULIN RATIO 0.5 (1.0-2.7); ALKALINE PHOSPHATASE 50 U/L (46-116); ANION GAP 11 mmol/L (5-15); ASPARTATE AMINO TRANSFERASE 23 U/L (15-37); BILIRUBIN,TOTAL 0.5 MG/DL (0.2-1.0); BLOOD UREA NITROGEN 37 mg/dL (7-18); CALCIUM 8.8 MG/DL (8.5-10.1); CARBON DIOXIDE 20 MMOL/L (21-32); CHLORIDE 112 MMOL/L (98-107); CREATININE 1.8 MG/DL (0.55-1.30); PHOSPHORUS 3.9 MG/DL (2.5-4.9); POTASSIUM 3.4 MMOL/L (3.5-5.1); SODIUM 143 MMOL/L (136-145)
[2020-06-11] MEDS: Valproic Acid 250mg/5ml Liquid GT SCH ×3 (05:49→21:05)
[2020-06-11] MEDS: Hydrocortisone 100mg Inj IV SCH ×3 (05:50→21:05)
[2020-06-11] MEDS: Midodrine 10mg tab GT SCH ×3 (05:50→21:05)
--- NOTE | 2020-06-11 06:30 | NUR ---
NURSE NOTES: Suctioned and oral care provided Afebrile and VSS PICC line and IV sites are CDI Gregorio is intact GT intact. Residual 25mL. feeding started. Safety measures observed and will continue to monitor
[2020-06-11] MEDS: Albuterol/Ipratropium 3ml neb HHN SCH (07:14)
--- NOTE | 2020-06-11 07:15 | NUR ---
HAND-OFF: Report given to TAI Hwang. Endorsed POC.
--- NOTE | 2020-06-11 07:20 | NUR ---
NURSE NOTES: Patient received from Sowmya LUJAN. VSS with BP 120/78 HR 58. SB. Patient stable AOx0 with no s/sx of pain or distress. Patient still making eye contact and tracking. When asked to squeeze hand, patient is able to follow command. BL hand strength 2/5. Eyes MARTY but unable to determine size due to pupil shape. LT facial swelling improved. RR even and unlabored through ETT tube 7.5 lip line 22. Vent settings AC 30 500mL 80% P10. Cardiac sounds benign. BL lung sounds rales improved from yesterday. Pitting edema +2 on BL hands and feet with weak pulses to dorsalis pedis. Generalized edema +1 edema. Gregorio draining well to gravity with 25mL. LT UA PICC line dressing dry and intact, patent. IV fluids and Levophed at 4mcg infusing. Will monitor BP and titrate down if patient SBP is maintained above 110. Bowel sounds hypoactive. Gastric tube in place. Feeding held at this time prior to synthroid admiistration.Side rails upx2 call light within reach, bed low and locked. Will continue to monitor.
--- NOTE | 2020-06-11 07:33 | NUR ---
NURSE NOTES: Dr. Allred contacted regarding ABG results. Awaiting response.
[2020-06-11] MEDS: Norepinephrine Bitartrate 16 MG in D5W 500ml 484 ML IV SCH (07:39)
--- NOTE | 2020-06-11 08:16 | NUR ---
RD ASSESSMENT & RECOMMENDATIONS SEE CARE ACTIVITY FOR COMPLETE ASSESSMENT DAILY ESTIMATED NEEDS: Needs based on CRITICAL CARE, 50kg 22-27 kcals/kg 5800-2265 total kcals 1.25-2 g protein/kg 63-100 g total protein 25-30 mL/kg 3896-3035 total fluid mLs NUTRITION DIAGNOSIS: Swallowing difficulty r/t dysphagia as evdienced by pt w/ Downs Syndrome, PEG dep for all nutritional needs, now intubated, pressor support, ICU status. CURRENT TF: Jevity 1.2 @50ml/hr x 22 hrs ENTERAL NUTRITION RECOMMENDATIONS: VITAL AF 1.2 @ 50ml/hr x22 hrs to provide 1100ml, 1320 kcal, 83g pro, 892ml free H2O - Rec VITAL AF 1.2 for critical care, high pro needs, possible improved tolerance. - Initiate @ 20ml/hr x 6hrs, advance as tolerated to goal w/ hemodynamic stability. - Hold TF 1 hr before and after Synthroid med - Flush per , HOB over 30 degrees. WITHOUT HEMODYANAMIC STABILITY, rec trophic feeds of Vital AF 1.2 @ 10ml/hr ADDITIONAL RECOMMENDATIONS: 1) Ht of 61 inches per SNF; recalibrate bed scale for accurate CBW 2) Monitor BG closely w/ Solucortef, need for NISS 3) Monitor hemodynamic stability: on pressors x 2, titrating down -> rec trophic feeds while not hemodyanmically stable 4) Wound healing: Continue Vit C 250mg QD + [place] BID 5) Monitor lytes, replete as needed 6) Rec prokinetics w/ continued residuals.
--- NOTE | 2020-06-11 08:31 | NUR ---
RADIOLOGY NOTE: PORTABLE CHEST X-RAY AT 0800 HRS. FA
--- NOTE | 2020-06-11 08:45 | NUR ---
CASE MANAGEMENT: REVIEW 06/10/20 SI: PNA . DOWN SYNDROME . SEIZURE DISORDER 97.5 67 30 112/91 100% MECH VENT FIO2 80 H/H 8.8/26.9 PLT 68 BUN/CREAT 37/1.8 ALB 1.6 K+3.4 ABG pCO2 26.3 pO2 54.0 HCO3 15.6 O2 SAT 94.5 IS: LEVOPHED QD PROTOCOL TITRATED IV NS @50ML/HR IV PHENYLEPHRINE QD PROTOCOL TITRATE DAPTOMYCIN Q48HR ALBUTEROL HHN PRO-AMATINE GT TID DEPAKENE GT TID ICU STATUS DCP: PATIENT IS FROM HOME [facility]
[2020-06-11] MEDS: Ascorbic Acid 500mg tab GT SCH (09:53)
[2020-06-11] MEDS: Pantoprazole Inj IV SCH (09:53)
--- NOTE | 2020-06-11 10:05 | Diagnostic Imaging Report ---
Indication: Dyspnea Technique: One view of the chest Comparison: 06/10/2020 Findings: Stable satisfactory position of endotracheal tube and PICC. Bilateral extensive diffuse infiltrates versus edema, bilateral left greater than right pleural effusions are unchanged. Impression: Unchanged, over one day, findings as above.
--- NOTE | 2020-06-11 11:16 | NUR ---
NURSE NOTES: Spoke with Dialysis nurse Kavin who will be dializing patient now. Also called pharmacy for scheduled cubicin.
[2020-06-11] MEDS: DAPTOmycin 350 MG in NS 55 ML IV SCH (11:25)
--- NOTE | 2020-06-11 11:57 | Infectious Diseases Prog Note ---
Assessment/Plan ASSESSMENT: sp code blue 06/03 Septic Shock; pressors requirements improving Fever, SP Leukocytosis; SP -06/03 u/a no pyuria Pneumonia.- COVID 19 neg x3 Acute hypoxic resp failure on VM> NRB 15l 100%; hypoxic on ABG> now VDRF 06/03 - Fio2 80% >100% 06/05> 60% 06/09 >80% 06/10 -06/09 sp cx NTD 06/08 CXR: Extensive bilateral interstitial and airspace disease appears similar to the prior exam. Moderate to large bilateral pleural effusions appear unchanged. 06/05 CXR: Increasing left upper lobe dense consolidation and likely increasing bilateral pleural fluid. Persistent diffuse dense consolidation elsewhere -06/03 sp cx normal resp marie -06/02 CXR: Increased atelectasis of the right lung, since prior exam of 3 days earlier. New or increased right pleural effusion. Increased left basilar consolidation and/or pleural fluid -COVID Rapid PCR neg 05/31, 05/31, 06/03 -05/30 spc x Group G strep -05/30 CXR: Reduced lung volumes. Patchy bilateral predominantly interstitial pulmonary opacities. Could be from edema and/or pneumonia. There is a broader differential. -legionella ag urine, blasto ab, Histo ab, HIV ab screen neg Persistent, high grade bacteremia- r/o endocarditis -05/30 Bcx 4/4 sets S. haemolyticus; 05/31 Bcx 3/4 S/ epi; 06/04 Bcx 1.4 S. warnerri; 06/06 Bcx NTD -2d echo: no vegetaions seen ua/ wbc 10-15, nit neg, leuk +1; ucx Neg LEANN; -supratherapeutic vanco levels -Seizure disorder. - Hypothyroidism. - Down syndrome. History of PEG tube placement. ID resident PLAN: Cont Daptomycin #10(abx d #13) for GPC bacteremia in view of LEANN [monitor CK, was 51 on 06/03] Cont Meropenem#9 (abx d #13) given resp decompensation -06/10 SP MIcafungin #7, Linezolid #5 f/u Repeat BCx given persistent bacteremia CT chest when stable enough, not currently given on FiO2 100% and pressors If pleural effusions, should be tapped to r/o empyema, send for bacterial cx as well as cell count and diff F/u cx of exudate around G-tube Trend GIB (black stools) 06/05 SP Azithromycin #7/7 06/03 SP Ceftriaxone #2 06/02 SP IV Vancomycin #4, Zosyn #4 05/30 SP Cefepime x1, Flagyl x1 - Monitor CBC, BMP. -f/u Cocci ab, CrAg .f/u Repeat cx - COVID neg x3 - Monitor chest x-ray. - Monitor the patient's clinical course and labs. Based on those, we will do further recommendation. Thank you, Dr. Allred, for allowing me to participate in the care of this patient. I will follow the patient with you at this hospitalization. Discussed with RN Subjective Allergies: Coded Allergies: No Known Allergies (Unverified , 10/16/18) afebrile remains intubated, Fio2 up to 80% levo at 4 and james at 20 Objective Last 24 Hour Vital Signs Date Time Temp Pulse Resp B/P (MAP) Pulse Ox O2 Delivery O2 Flow Rate FiO2 06/11/20 11:00 63 30 106/60 (75) 98 06/11/20 10:30 63 30 110/54 (72) 99 06/11/20 10:00 65 25 94/74 (81) 06/11/20 09:30 66 27 119/71 (87) 91 06/11/20 09:00 64 29 124/64 (84) 91 06/11/20 08:30 67 25 129/56 (80) 95 06/11/20 08:00 Mechanical Ventilator Mechanical Ventilator 06/11/20 08:00 98.6 64 29 112/65 (81) 96 06/11/20 08:00 71 06/11/20 08:00 80 06/11/20 07:45 70 28 139/93 (108) 97 06/11/20 07:30 69 27 134/115 (121) 97 06/11/20 07:05 60 30 97 Mechanical Ventilator 80 65 30 06/11/20 07:00 60 30 120/70 (87) 95 06/11/20 07:00 120/70 06/11/20 06:45 60 30 106/72 (83) 95 06/11/20 06:30 63 27 112/64 (80) 96 06/11/20 06:15 68 25 106/65 (79) 96 06/11/20 06:00 65 29 114/58 (76) 95 06/11/20 06:00 114/58 06/11/20 05:45 61 30 120/54 (76) 98 06/11/20 05:30 64 27 111/62 (78) 97 06/11/20 05:15 64 28 120/78 (92) 98 06/11/20 05:00 62 29 108/91 (97) 97 06/11/20 05:00 69 30 80 06/11/20 05:00 108/91 06/11/20 04:45 64 28 120/78 (92) 98 06/11/20 04:30 63 29 132/65 (87) 97 06/11/20 04:15 64 25 119/75 (90) 97 06/11/20 04:00 67 25 113/77 (89) 97 06/11/20 04:00 80 06/11/20 04:00 67 06/11/20 04:00 113/77 06/11/20 04:00 Mechanical Ventilator Mechanical Ventilator 06/11/20 03:45 64 27 135/95 (108) 97 06/11/20 03:30 66 26 122/63 (82) 98 06/11/20 03:15 69 32 80 06/11/20 03:15 72 25 135/81 (99) 97 06/11/20 03:00 61 29 130/67 (88) 99 06/11/20 03:00 130/67 06/11/20 02:45 62 29 112/70 (84) 99 06/11/20 02:30 68 27 116/85 (95) 99 06/11/20 02:15 68 27 133/57 (82) 100 06/11/20 02:00 64 27 115/57 (76) 100 06/11/20 02:00 115/57 06/11/20 01:45 73 31 109/43 (65) 99 06/11/20 01:40 74 33 80 06/11/20 01:30 85 25 122/70 (87) 86 06/11/20 01:15 67 27 115/68 (84) 98 06/11/20 01:00 109/92 06/11/20 01:00 69 23 109/92 (98) 98 9/3/20 00:45 71 26 103/69 (80) 96 06/11/20 00:30 66 28 121/67 (85) 99 06/11/20 00:15 72 26 117/79 (92) 98 06/11/20 00:00 74 24 150/84 (106) 96 06/11/20 00:00 80 06/11/20 00:00 150/84 06/11/20 00:00 Mechanical Ventilator Mechanical Ventilator 06/10/20 23:30 73 32 80 06/10/20 23:30 61 30 117/57 (77) 98 06/10/20 23:15 78 22 125/67 (86) 97 06/10/20 23:00 65 28 109/58 (75) 96 06/10/20 23:00 109/58 06/10/20 22:45 71 24 102/67 (79) 97 06/10/20 22:30 75 24 110/88 (95) 97 06/10/20 22:15 64 30 118/74 (89) 100 06/10/20 22:00 72 30 98/68 (78) 100 06/10/20 22:00 98/68 06/10/20 21:45 74 27 97/57 (70) 100 06/10/20 21:43 76 30 80 06/10/20 21:30 68 30 108/57 (74) 100 06/10/20 21:30 108/57 06/10/20 21:15 72 29 101/58 (72) 100 06/10/20 21:15 101/58 06/10/20 21:00 74 28 97/55 (69) 100 06/10/20 21:00 97/55 06/10/20 20:45 72 28 110/81 (91) 100 06/10/20 20:45 110/81 06/10/20 20:30 72 28 81/54 (63) 100 06/10/20 20:30 81/54 06/10/20 20:15 77 27 114/53 (73) 98 06/10/20 20:00 97.5 67 30 112/91 (98) 100 06/10/20 20:00 112/91 06/10/20 20:00 67 06/10/20 20:00 Mechanical Ventilator Mechanical Ventilator 06/10/20 19:45 79 20 115/96 (102) 95 06/10/20 19:45 76 32 100 Mechanical Ventilator 80 79 30 80 06/10/20 19:30 59 30 89/67 (74) 100 06/10/20 19:15 64 29 117/60 (79) 100 06/10/20 19:00 95/46 06/10/20 19:00 66 29 95/46 (62) 100 06/10/20 18:45 69 29 108/54 (72) 99 06/10/20 18:30 123/96 06/10/20 18:30 75 29 123/96 (105) 98 06/10/20 18:15 64 30 116/72 (87) 98 06/10/20 18:00 102/61 06/10/20 18:00 64 30 102/61 (75) 100 06/10/20 17:45 71 30 104/57 (73) 100 06/10/20 17:30 80 06/10/20 17:30 64 30 112/45 (67) 100 06/10/20 17:29 62 30 80 06/10/20 17:15 127/91 06/10/20 17:15 80 26 127/91 (103) 100 06/10/20 17:00 125/61 06/10/20 17:00 64 30 125/61 (82) 100 06/10/20 16:30 70 29 136/71 (92) 100 06/10/20 16:05 100 06/10/20 16:00 66 06/10/20 16:00 Mechanical Ventilator Mechanical Ventilator 06/10/20 16:00 97.8 65 30 118/53 (74) 97 06/10/20 16:00 118/53 06/10/20 15:30 66 30 114/52 (72) 97 06/10/20 15:00 112/51 06/10/20 15:00 69 30 112/50 (70) 97 06/10/20 15:00 60 06/10/20 14:40 74 30 97 Mechanical Ventilator 60 71 30 60 06/10/20 14:30 77 23 118/79 (92) 98 06/10/20 14:01 83 20 99/48 (65) 97 06/10/20 14:00 99/48 06/10/20 13:30 73 24 100/53 (69) 95 06/10/20 13:16 76 33 70 06/10/20 13:00 63 30 109/54 (72) 96 06/10/20 13:00 109/54 06/10/20 12:30 66 30 110/52 (71) 97 06/10/20 12:00 98.1 80 28 100/45 (63) 98 06/10/20 12:00 68 06/10/20 12:00 100/45 06/10/20 11:53 Mechanical Ventilator Mechanical Ventilator Height (Feet): 5 Height (Inches): 3.00 Weight (Pounds): 172 HEENT: No pale conjunctivae. No icterus. ETT in place NECK: No lymphadenopathy. CHEST: Coarse breathing sounds. HEART: S1 and S2. ABDOMEN: Soft. PEG tube in place. EXTREMITIES: No cyanosis at this time . SKIN: no rash Microbiology Date/Time Source Procedure Growth Status 06/09/20 16:14 Sputum Gram Stain - Final Resulted 06/09/20 16:14 Sputum Sputum Culture - Preliminary NO GROWTH AFTER 24 HOURS Resulted Laboratory Tests Test 06/11/20 04:10 06/11/20 07:10 White Blood Count 9.7 K/UL (4.8-10.8) Red Blood Count 2.63 M/UL (4.20-5.40) L Hemoglobin 8.8 G/DL (12.0-16.0) L Hematocrit 26.9 % (37.0-47.0) L Mean Corpuscular Volume 102 FL (80-99) H Mean Corpuscular Hemoglobin 33.7 PG (27.0-31.0) H Mean Corpuscular Hemoglobin Concent 32.9 G/DL (32.0-36.0) Red Cell Distribution Width 13.5 % (11.6-14.8) Platelet Count 68 K/UL (150-450) L Mean Platelet Volume 8.8 FL (6.5-10.1) Neutrophils (%) (Auto) % (45.0-75.0) Lymphocytes (%) (Auto) % (20.0-45.0) Monocytes (%) (Auto) % (1.0-10.0) Eosinophils (%) (Auto) % (0.0-3.0) Basophils (%) (Auto) % (0.0-2.0) Differential Total Cells Counted 100 Neutrophils % (Manual) 84 % (45-75) H Lymphocytes % (Manual) 11 % (20-45) L Monocytes % (Manual) 5 % (1-10) Eosinophils % (Manual) 0 % (0-3) Basophils % (Manual) 0 % (0-2) Band Neutrophils 0 % (0-8) Platelet Estimate Decreased L Platelet Morphology Normal Hypochromasia 2+ Anisocytosis 1+ Macrocytosis 1+ Sodium Level 143 MMOL/L (136-145) Potassium Level 3.4 MMOL/L (3.5-5.1) L Chloride Level 112 MMOL/L (98-107) H Carbon Dioxide Level 20 MMOL/L (21-32) L Anion Gap 11 mmol/L (5-15) Blood Urea Nitrogen 37 mg/dL (7-18) H Creatinine 1.8 MG/DL (0.55-1.30) H Estimat Glomerular Filtration Rate 28.9 mL/min (>60) Glucose Level 96 MG/DL (74-106) Calcium Level 8.8 MG/DL (8.5-10.1) Phosphorus Level 3.9 MG/DL (2.5-4.9) Magnesium Level 2.1 MG/DL (1.8-2.4) Total Bilirubin 0.5 MG/DL (0.2-1.0) Aspartate Amino Transf (AST/SGOT) 23 U/L (15-37) Alanine Aminotransferase (ALT/SGPT) 12 U/L (12-78) Alkaline Phosphatase 50 U/L (46-116) Total Protein 4.8 G/DL (6.4-8.2) L Albumin 1.6 G/DL (3.4-5.0) L Globulin 3.2 g/dL Albumin/Globulin Ratio 0.5 (1.0-2.7) L Arterial Blood pH 7.438 (7.350-7.450) Arterial Blood Partial Pressure CO2 23.3 mmHg (35.0-45.0) *L Arterial Blood Partial Pressure O2 77.1 mmHg (75.0-100.0) Arterial Blood HCO3 15.4 mmol/L (22.0-26.0) *L Arterial Blood Oxygen Saturation 94.5 % (95-100) L Arterial Blood Base Excess -7.5 (-2-2) L Jonathan Test Positive Current Medications Medications (Trade) Dose Ordered Sig/Katy Route PRN Reason Start Time Stop Time Status Last Admin Dose Admin Acetaminophen (Tylenol) 650 mg Q4H PRN GT FEVER 06/03/20 11:45 07/03/20 11:44 06/06/20 23:15 Albuterol/ Ipratropium (Albuterol/ Ipratropium) 3 ml TIDRT HHN 06/06/20 13:00 06/11/20 12:59 06/11/20 07:14 Ascorbic Acid (Vitamin C) 250 mg DAILY GT 06/11/20 09:00 07/11/20 08:59 06/11/20 09:53 Chlorhexidine Gluconate (Alla-Hex 2%) 1 applic DAILY@2000 TOPIC 06/08/20 20:00 09/06/20 19:59 06/10/20 19:42 Clotrimazole (Lotrimin) 1 applic Q12HR TOPIC 06/07/20 13:00 09/05/20 12:59 06/11/20 09:53 Daptomycin 350 mg/ Sodium Chloride 55 ml @ 100 mls/hr Q48H IV 06/05/20 11:00 06/13/20 10:59 06/11/20 11:25 Dextrose (Dextrose 50%) 25 ml Q30M PRN IV Hypoglycemia 06/03/20 11:30 08/28/20 11:29 Dextrose (Dextrose 50%) 50 ml Q30M PRN IV Hypoglycemia 06/03/20 11:30 08/28/20 11:29 Hydrocortisone (Solu-CORTEF) 100 mg EVERY 8 HOURS IV 06/07/20 14:00 09/05/20 13:59 06/11/20 05:50 Levothyroxine Sodium (Synthroid) 75 mcg DAILY GT 06/04/20 09:00 06/30/20 08:59 06/11/20 09:53 Meropenem 1 gm/ Sodium Chloride 55 ml @ 110 mls/hr Q12H IVPB 06/03/20 16:00 06/13/20 15:59 06/11/20 03:09 Micafungin Sodium 100 mg/Sodium Chloride 110 ml @ 110 mls/hr Q24H IVPB 06/04/20 14:00 06/11/20 13:59 06/10/20 13:39 Midodrine (Pro-Amatine) 10 mg Q8HR GT 06/05/20 14:00 09/03/20 13:59 06/11/20 05:50 Norepinephrine Bitartrate 16 mg/ Dextrose 500 ml @ 0 mls/hr Q24H IV 06/08/20 07:45 07/07/20 12:59 06/10/20 08:20 Ondansetron HCl (Zofran) 4 mg Q6H PRN IVP Nausea & Vomiting 06/03/20 12:00 06/29/20 11:59 Pantoprazole (Protonix) 40 mg DAILY IV 06/04/20 09:00 06/30/20 08:59 06/11/20 09:53 Phenylephrine HCl 50 mg/Dextrose 250 ml @ 0 mls/hr Q24H PRN IV For hypotension 06/06/20 17:45 07/06/20 17:44 06/08/20 01:49 Polyethylene Glycol (Miralax) 17 gm DAILYPRN PRN GT Constipation 06/03/20 12:00 06/29/20 11:59 Sodium Chloride 1,000 ml @ 50 mls/hr Q20H IV 06/08/20 09:32 07/08/20 09:31 06/11/20 06:46 Valproic Acid (Depakene) 500 mg EVERY 8 HOURS GT 06/03/20 14:00 06/29/20 21:59 06/11/20 05:49 Suki Camejo M.D. Jun 11, 2020 11:57
--- NOTE | 2020-06-11 12:07 | Nephrology Progress Note ---
Assessment/Plan Problem List: (1) LEANN (acute kidney injury) (2) Respiratory failure requiring intubation (3) Down's syndrome (4) Seizure disorder (5) Hypothyroidism Assessment Acute renal failure, likely due to hypotension Acute respiratory distress, hypoxia Seizure disorder Hypothyroidism Down syndrome Full code Fluid challenge with IV fluids and albumin Midodrine for BP above 100 systolic Check TSH level Check Correct level Monitor renal parameters Urine studies Per orders Plan June 11: Status quo. Labs reviewed. Electrolytes adjusted. Serum creatinine down to 1.8. Continue per consultants. June 10: Status quo. Labs reviewed. Phosphorus supplement IV given. Serum creatinine 2. Continue per consultants. June 09: Requires less pressors. Albumin bolus given. 1 dose of Lasix IV ordered as the patient severely edematous. Patient serum albumin is very low. Continue per consultants. June 08: Continues to be intubated. Labs reviewed. Serum creatinine 1.9 unchanged. Blood pressure more stable. Off 1 of the pressors. Continue to monitor renal parameters. Continue per consultants. Patient now on hydrocortisone 100 mg every 8 hours. Will decrease IV fluid. Normal saline down to 50 cc an hour. June 07: Intubated. Labs reviewed. Creatinine 1.9 unchanged. Continue same treatment plan. Per consultants. Overall poor prognosis since the patient remains on pressors and her pulmonary status is worsening. June 06: Remains intubated. Labs reviewed. Creatinine 1.9. Blood pressure systolic 90s. Continue per consultants. June 05: Remains intubated. Labs reviewed. Serum creatinine lower to 2. Vancomycin level lower. Remains hypotensive on pressors. Will increase midodrine to 10 mg every 8 hours. Continue per consultants. Continue to monitor renal parameters. June 04: Patient now in ICU. Intubated. On pressors. Labs reviewed. Will increase midodrine. Aim to keep blood pressure over 100 systolic. Will give albumin bolus. Will check vancomycin level which was elevated when checked previously on June 01. Will monitor renal parameters. Continue per consultants. Subjective ROS Limited/Unobtainable: Yes Objective Objective Last 24 Hour Vital Signs Date Time Temp Pulse Resp B/P (MAP) Pulse Ox O2 Delivery O2 Flow Rate FiO2 06/11/20 11:00 63 30 106/60 (75) 98 06/11/20 10:30 63 30 110/54 (72) 99 06/11/20 10:00 65 25 94/74 (81) 06/11/20 09:30 66 27 119/71 (87) 91 06/11/20 09:00 64 29 124/64 (84) 91 06/11/20 08:30 67 25 129/56 (80) 95 06/11/20 08:00 Mechanical Ventilator Mechanical Ventilator 06/11/20 08:00 98.6 64 29 112/65 (81) 96 06/11/20 08:00 71 06/11/20 08:00 80 06/11/20 07:45 70 28 139/93 (108) 97 06/11/20 07:30 69 27 134/115 (121) 97 06/11/20 07:05 60 30 97 Mechanical Ventilator 80 65 30 06/11/20 07:00 60 30 120/70 (87) 95 06/11/20 07:00 120/70 06/11/20 06:45 60 30 106/72 (83) 95 06/11/20 06:30 63 27 112/64 (80) 96 06/11/20 06:15 68 25 106/65 (79) 96 06/11/20 06:00 65 29 114/58 (76) 95 06/11/20 06:00 114/58 06/11/20 05:45 61 30 120/54 (76) 98 06/11/20 05:30 64 27 111/62 (78) 97 06/11/20 05:15 64 28 120/78 (92) 98 06/11/20 05:00 62 29 108/91 (97) 97 06/11/20 05:00 69 30 80 06/11/20 05:00 108/91 06/11/20 04:45 64 28 120/78 (92) 98 06/11/20 04:30 63 29 132/65 (87) 97 06/11/20 04:15 64 25 119/75 (90) 97 06/11/20 04:00 67 25 113/77 (89) 97 06/11/20 04:00 80 06/11/20 04:00 67 06/11/20 04:00 113/77 06/11/20 04:00 Mechanical Ventilator Mechanical Ventilator 06/11/20 03:45 64 27 135/95 (108) 97 06/11/20 03:30 66 26 122/63 (82) 98 06/11/20 03:15 69 32 80 06/11/20 03:15 72 25 135/81 (99) 97 06/11/20 03:00 61 29 130/67 (88) 99 06/11/20 03:00 130/67 06/11/20 02:45 62 29 112/70 (84) 99 06/11/20 02:30 68 27 116/85 (95) 99 06/11/20 02:15 68 27 133/57 (82) 100 06/11/20 02:00 64 27 115/57 (76) 100 06/11/20 02:00 115/57 06/11/20 01:45 73 31 109/43 (65) 99 06/11/20 01:40 74 33 80 06/11/20 01:30 85 25 122/70 (87) 86 06/11/20 01:15 67 27 115/68 (84) 98 06/11/20 01:00 109/92 06/11/20 01:00 69 23 109/92 (98) 98 06/11/20 00:45 71 26 103/69 (80) 96 06/11/20 00:30 66 28 121/67 (85) 99 06/11/20 00:15 72 26 117/79 (92) 98 06/11/20 00:00 74 24 150/84 (106) 96 06/11/20 00:00 80 06/11/20 00:00 150/84 06/11/20 00:00 Mechanical Ventilator Mechanical Ventilator 06/10/20 23:30 73 32 80 06/10/20 23:30 61 30 117/57 (77) 98 06/10/20 23:15 78 22 125/67 (86) 97 06/10/20 23:00 65 28 109/58 (75) 96 06/10/20 23:00 109/58 06/10/20 22:45 71 24 102/67 (79) 97 06/10/20 22:30 75 24 110/88 (95) 97 06/10/20 22:15 64 30 118/74 (89) 100 06/10/20 22:00 72 30 98/68 (78) 100 06/10/20 22:00 98/68 06/10/20 21:45 74 27 97/57 (70) 100 06/10/20 21:43 76 30 80 06/10/20 21:30 68 30 108/57 (74) 100 06/10/20 21:30 108/57 06/10/20 21:15 72 29 101/58 (72) 100 06/10/20 21:15 101/58 06/10/20 21:00 74 28 97/55 (69) 100 06/10/20 21:00 97/55 06/10/20 20:45 72 28 110/81 (91) 100 06/10/20 20:45 110/81 06/10/20 20:30 72 28 81/54 (63) 100 06/10/20 20:30 81/54 06/10/20 20:15 77 27 114/53 (73) 98 06/10/20 20:00 97.5 67 30 112/91 (98) 100 06/10/20 20:00 112/91 06/10/20 20:00 67 06/10/20 20:00 Mechanical Ventilator Mechanical Ventilator 06/10/20 19:45 79 20 115/96 (102) 95 06/10/20 19:45 76 32 100 Mechanical Ventilator 80 79 30 80 06/10/20 19:30 59 30 89/67 (74) 100 06/10/20 19:15 64 29 117/60 (79) 100 06/10/20 19:00 95/46 06/10/20 19:00 66 29 95/46 (62) 100 06/10/20 18:45 69 29 108/54 (72) 99 06/10/20 18:30 123/96 06/10/20 18:30 75 29 123/96 (105) 98 06/10/20 18:15 64 30 116/72 (87) 98 06/10/20 18:00 102/61 06/10/20 18:00 64 30 102/61 (75) 100 06/10/20 17:45 71 30 104/57 (73) 100 06/10/20 17:30 80 06/10/20 17:30 64 30 112/45 (67) 100 06/10/20 17:29 62 30 80 06/10/20 17:15 127/91 06/10/20 17:15 80 26 127/91 (103) 100 06/10/20 17:00 125/61 06/10/20 17:00 64 30 125/61 (82) 100 06/10/20 16:30 70 29 136/71 (92) 100 06/10/20 16:05 100 06/10/20 16:00 66 06/10/20 16:00 Mechanical Ventilator Mechanical Ventilator 06/10/20 16:00 97.8 65 30 118/53 (74) 97 06/10/20 16:00 118/53 06/10/20 15:30 66 30 114/52 (72) 97 06/10/20 15:00 112/51 06/10/20 15:00 69 30 112/50 (70) 97 06/10/20 15:00 60 06/10/20 14:40 74 30 97 Mechanical Ventilator 60 71 30 60 06/10/20 14:30 77 23 118/79 (92) 98 06/10/20 14:01 83 20 99/48 (65) 97 06/10/20 14:00 99/48 06/10/20 13:30 73 24 100/53 (69) 95 06/10/20 13:16 76 33 70 06/10/20 13:00 63 30 109/54 (72) 96 06/10/20 13:00 109/54 06/10/20 12:30 66 30 110/52 (71) 97 Intake and Output 06/10/20 06/11/20 19:00 07:00 Intake Total 1284.9555 ml 654.375 ml Output Total 701 ml 410 ml Balance 583.9555 ml 244.375 ml Free Water 30 ml IV Total 974.9555 ml 584.375 ml Tube Feeding 310 ml 40 ml Output Urine Total 700 ml 410 ml Stool Total 1 ml # Bowel Movements 2 Laboratory Tests 06/11/20 04:10: White Blood Count 9.7, Red Blood Count 2.63L, Hemoglobin 8.8L, Hematocrit 26.9L , Mean Corpuscular Volume 102H, Mean Corpuscular Hemoglobin 33.7H, Mean Corpuscular Hemoglobin Concent 32.9, Red Cell Distribution Width 13.5, Platelet Count 68L, Mean Platelet Volume 8.8, Neutrophils (%) (Auto) , Lymphocytes (%) ( Auto) , Monocytes (%) (Auto) , Eosinophils (%) (Auto) , Basophils (%) (Auto) , Differential Total Cells Counted 100, Neutrophils % (Manual) 84H, Lymphocytes % (Manual) 11L, Monocytes % (Manual) 5, Eosinophils % (Manual) 0, Basophils % ( Manual) 0, Band Neutrophils 0, Platelet Estimate DecreasedL, Platelet Morphology Normal, Hypochromasia 2+, Anisocytosis 1+, Macrocytosis 1+, Sodium Level 143, Potassium Level 3.4L, Chloride Level 112H, Carbon Dioxide Level 20L, Anion Gap 11, Blood Urea Nitrogen 37H, Creatinine 1.8H, Estimat Glomerular Filtration Rate 28.9, Glucose Level 96, Calcium Level 8.8, Phosphorus Level 3.9 , Magnesium Level 2.1, Total Bilirubin 0.5, Aspartate Amino Transf (AST/SGOT) 23 , Alanine Aminotransferase (ALT/SGPT) 12, Alkaline Phosphatase 50, Total Protein 4.8L, Albumin 1.6L, Globulin 3.2, Albumin/Globulin Ratio 0.5L 06/11/20 07:10: Arterial Blood pH 7.438, Arterial Blood Partial Pressure CO2 23.3*L, Arterial Blood Partial Pressure O2 77.1, Arterial Blood HCO3 15.4*L, Arterial Blood Oxygen Saturation 94.5L, Arterial Blood Base Excess -7.5L, Jonathan Test Positive Height (Feet): 5 Height (Inches): 3.00 Weight (Pounds): 172 General Appearance: no apparent distress EENT: other - Patient is vented Cardiovascular: normal rate Respiratory/Chest: decreased breath sounds Abdomen: distended Keron Pitt MD Jun 11, 2020 12:07
--- NOTE | 2020-06-11 19:00 | NUR ---
NURSE NOTES: Received patient and report from TAI Hand. Patient is observed resting in bed and noted to be lethargic but responsive to stimuli; withdraws to pain, opens eyes spontaneously, MARTY and tracks. Pt is currently unable to follow commands. Eyes noted to open spontaneously, 4mm sluggish reaction to light and pt withdrawals to pain. No pain noted upon assessment. Pt is currently orally intubated ett size 7.5 noted to be 22 @ lip. Pt appears to be tolerating vent settings well; Vent settings as follows: AC 30 TV 500 FiO2 100% PEEP 10 with an O2 saturation of 100% noted at this time. Bilateral lower lobe breath sounds noted to be diminished upon auscultation and rhonchi noted in bilateral upper and lower lobes. Pt noted to be SB on tele monitor with a HR of 54 with no s/sx of acute cardiac distress noted. Cardiology notified of change in pt rhythm by previous shift, no further orders at this time. Left upper arm PICC line noted which remains asymptomatic, intact and patent. Central line dressing remains clean ,dry and intact. G tube noted which remains intact and patent. Jevity 1.2 currently infusing at 20mL/hr as ordered with 30mL residual noted. Milan administered as ordered and flushed appropriately, will continue to monitor residual. Active bowel sounds noted in all four quadrants, abdomen remains large, soft and round. Diagnostics reviewed at bedside. Skin alterations noted. Pt repositioned for comfort and safety. Fall, Aspiration, Seizure and Skin precautions observed. Pt remains resting in bed; Bed remains in the lowest position with the safety wheels engaged, call light within reach, side rails up x3 and bed alarm activated. Will continue plan of care. Will continue to monitor. Addendum: 06/11/20 at 2036 by TRISTEN RINALDI RN Levophed currently infusing at 4mcg/min
--- NOTE | 2020-06-11 19:30 | NUR ---
NURSE HAND-OFF REPORT: Latest Vital Signs: Temperature 98.2 , Pulse 54 , B/P 133 /65 , Respiratory Rate 30 , O2 SAT 100 , Mechanical Ventilator, O2 Flow Rate 15.0 . Vital Sign Comment: STABLE EKG Rhythm: Sinus Bradycardia Rhythm change?: Y Notified?: Dr. Scarlett PRAKASH Response: Order for EKG. Aware of results. No new orders. Latest Osorio Fall Score: 50 Fall Risk: High Risk Safety Measures: Call light Within Reach, Bed Alarm Zone 2, Side Rails Side Rails x3, Bed position Low and Locked. Fall Precautions: Patient Fall Education Report given to Thelma RN. Patient stable. Plan of care endorsed. Aware that sacral picture not taken.
--- NOTE | 2020-06-11 19:53 | Pulmonolgy Critical Care Note ---
Critical Care - Asmt/Plan Problems: (1) Acute respiratory failure (2) Bacteremia (3) Pneumonia (4) Sepsis (5) HCAP (healthcare-associated pneumonia) (6) Seizure disorder (7) Down's syndrome Respiratory: monitor respiratory rate, adjust FIO2, CXR Cardiac: continue to monitor HR/BP Renal: F/U I&O, keep IV fluid, check electrolytes Infectious Disease: check cultures Gastrointestinal: hold feedings Endocrine: check TSH, check HgA1C Hematologic: transfuse if hgb<8.5 Neurologic: PRN Ativan, keep patient comfortable Affect: PRN ativan Time Spent (Minutes): 40 Notes Reviewed: cardio, 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 with: nurses, consultants, case manager specialistdeveloper relations manager - Objective Last 24 Hour Vital Signs Date Time Temp Pulse Resp B/P (MAP) Pulse Ox O2 Delivery O2 Flow Rate FiO2 06/11/20 19:14 60 30 80 06/11/20 11:00 63 30 106/60 (75) 98 06/11/20 10:30 63 30 110/54 (72) 99 06/11/20 10:00 65 25 94/74 (81) 06/11/20 09:30 66 27 119/71 (87) 91 06/11/20 09:00 64 29 124/64 (84) 91 06/11/20 08:30 67 25 129/56 (80) 95 06/11/20 08:00 Mechanical Ventilator Mechanical Ventilator 06/11/20 08:00 98.6 64 29 112/65 (81) 96 06/11/20 08:00 71 06/11/20 08:00 80 06/11/20 07:45 70 28 139/93 (108) 97 06/11/20 07:30 69 27 134/115 (121) 97 06/11/20 07:05 60 30 97 Mechanical Ventilator 80 65 30 06/11/20 07:00 60 30 120/70 (87) 95 06/11/20 07:00 120/70 06/11/20 06:45 60 30 106/72 (83) 95 06/11/20 06:30 63 27 112/64 (80) 96 06/11/20 06:15 68 25 106/65 (79) 96 06/11/20 06:00 65 29 114/58 (76) 95 06/11/20 06:00 114/58 06/11/20 05:45 61 30 120/54 (76) 98 06/11/20 05:30 64 27 111/62 (78) 97 06/11/20 05:15 64 28 120/78 (92) 98 06/11/20 05:00 62 29 108/91 (97) 97 06/11/20 05:00 69 30 80 06/11/20 05:00 108/91 06/11/20 04:45 64 28 120/78 (92) 98 06/11/20 04:30 63 29 132/65 (87) 97 06/11/20 04:15 64 25 119/75 (90) 97 06/11/20 04:00 67 25 113/77 (89) 97 06/11/20 04:00 80 06/11/20 04:00 67 06/11/20 04:00 113/77 06/11/20 04:00 Mechanical Ventilator Mechanical Ventilator 06/11/20 03:45 64 27 135/95 (108) 97 06/11/20 03:30 66 26 122/63 (82) 98 06/11/20 03:15 69 32 80 06/11/20 03:15 72 25 135/81 (99) 97 06/11/20 03:00 61 29 130/67 (88) 99 06/11/20 03:00 130/67 06/11/20 02:45 62 29 112/70 (84) 99 06/11/20 02:30 68 27 116/85 (95) 99 06/11/20 02:15 68 27 133/57 (82) 100 06/11/20 02:00 64 27 115/57 (76) 100 06/11/20 02:00 115/57 06/11/20 01:45 73 31 109/43 (65) 99 06/11/20 01:40 74 33 80 06/11/20 01:30 85 25 122/70 (87) 86 06/11/20 01:15 67 27 115/68 (84) 98 06/11/20 01:00 109/92 06/11/20 01:00 69 23 109/92 (98) 98 06/11/20 00:45 71 26 103/69 (80) 96 06/11/20 00:30 66 28 121/67 (85) 99 06/11/20 00:15 72 26 117/79 (92) 98 9/3/20 00:00 74 24 150/84 (106) 96 06/11/20 00:00 80 06/11/20 00:00 150/84 06/11/20 00:00 Mechanical Ventilator Mechanical Ventilator 06/10/20 23:30 73 32 80 06/10/20 23:30 61 30 117/57 (77) 98 06/10/20 23:15 78 22 125/67 (86) 97 06/10/20 23:00 65 28 109/58 (75) 96 06/10/20 23:00 109/58 06/10/20 22:45 71 24 102/67 (79) 97 06/10/20 22:30 75 24 110/88 (95) 97 06/10/20 22:15 64 30 118/74 (89) 100 06/10/20 22:00 72 30 98/68 (78) 100 06/10/20 22:00 98/68 06/10/20 21:45 74 27 97/57 (70) 100 06/10/20 21:43 76 30 80 06/10/20 21:30 68 30 108/57 (74) 100 06/10/20 21:30 108/57 06/10/20 21:15 72 29 101/58 (72) 100 06/10/20 21:15 101/58 06/10/20 21:00 74 28 97/55 (69) 100 06/10/20 21:00 97/55 06/10/20 20:45 72 28 110/81 (91) 100 06/10/20 20:45 110/81 06/10/20 20:30 72 28 81/54 (63) 100 06/10/20 20:30 81/54 06/10/20 20:15 77 27 114/53 (73) 98 06/10/20 20:00 97.5 67 30 112/91 (98) 100 06/10/20 20:00 112/91 06/10/20 20:00 67 06/10/20 20:00 Mechanical Ventilator Mechanical Ventilator Status: sedated Condition: critical HEENT: atraumatic, normocephalic Lungs: rales, rhonchi Heart: HR/BP unstable Abdomen: soft, non-tender, feeding tube Extremities: edema Micro: Microbiology Date/Time Source Procedure Growth Status 06/09/20 16:14 Sputum Gram Stain - Final Resulted 06/09/20 16:14 Sputum Sputum Culture - Preliminary NO GROWTH AFTER 24 HOURS Resulted Accucheck: 131 Critical Care - Subjective FI02: 80 Vent Support Breath Rate: 30 Vent Support Mode: AC Vent Tidal Volume: 500 Sputum Amount: Small PEEP: 10.0 PIP: 41 Tube Feeding Amount: 20 I&O: Intake and Output 06/10/20 06/11/20 19:00 07:00 Intake Total 1284.9555 ml 654.375 ml Output Total 701 ml 410 ml Balance 583.9555 ml 244.375 ml Free Water 30 ml IV Total 974.9555 ml 584.375 ml Tube Feeding 310 ml 40 ml Output Urine Total 700 ml 410 ml Stool Total 1 ml # Bowel Movements 2 ET-Tube: 7.5 ET Position: 22 Labs: Laboratory Tests Test 06/11/20 04:10 06/11/20 07:10 White Blood Count 9.7 K/UL (4.8-10.8) Red Blood Count 2.63 M/UL (4.20-5.40) L Hemoglobin 8.8 G/DL (12.0-16.0) L Hematocrit 26.9 % (37.0-47.0) L Mean Corpuscular Volume 102 FL (80-99) H Mean Corpuscular Hemoglobin 33.7 PG (27.0-31.0) H Mean Corpuscular Hemoglobin Concent 32.9 G/DL (32.0-36.0) Red Cell Distribution Width 13.5 % (11.6-14.8) Platelet Count 68 K/UL (150-450) L Mean Platelet Volume 8.8 FL (6.5-10.1) Neutrophils (%) (Auto) % (45.0-75.0) Lymphocytes (%) (Auto) % (20.0-45.0) Monocytes (%) (Auto) % (1.0-10.0) Eosinophils (%) (Auto) % (0.0-3.0) Basophils (%) (Auto) % (0.0-2.0) Differential Total Cells Counted 100 Neutrophils % (Manual) 84 % (45-75) H Lymphocytes % (Manual) 11 % (20-45) L Monocytes % (Manual) 5 % (1-10) Eosinophils % (Manual) 0 % (0-3) Basophils % (Manual) 0 % (0-2) Band Neutrophils 0 % (0-8) Platelet Estimate Decreased L Platelet Morphology Normal Hypochromasia 2+ Anisocytosis 1+ Macrocytosis 1+ Sodium Level 143 MMOL/L (136-145) Potassium Level 3.4 MMOL/L (3.5-5.1) L Chloride Level 112 MMOL/L (98-107) H Carbon Dioxide Level 20 MMOL/L (21-32) L Anion Gap 11 mmol/L (5-15) Blood Urea Nitrogen 37 mg/dL (7-18) H Creatinine 1.8 MG/DL (0.55-1.30) H Estimat Glomerular Filtration Rate 28.9 mL/min (>60) Glucose Level 96 MG/DL (74-106) Calcium Level 8.8 MG/DL (8.5-10.1) Phosphorus Level 3.9 MG/DL (2.5-4.9) Magnesium Level 2.1 MG/DL (1.8-2.4) Total Bilirubin 0.5 MG/DL (0.2-1.0) Aspartate Amino Transf (AST/SGOT) 23 U/L (15-37) Alanine Aminotransferase (ALT/SGPT) 12 U/L (12-78) Alkaline Phosphatase 50 U/L (46-116) Total Protein 4.8 G/DL (6.4-8.2) L Albumin 1.6 G/DL (3.4-5.0) L Globulin 3.2 g/dL Albumin/Globulin Ratio 0.5 (1.0-2.7) L Arterial Blood pH 7.438 (7.350-7.450) Arterial Blood Partial Pressure CO2 23.3 mmHg (35.0-45.0) *L Arterial Blood Partial Pressure O2 77.1 mmHg (75.0-100.0) Arterial Blood HCO3 15.4 mmol/L (22.0-26.0) *L Arterial Blood Oxygen Saturation 94.5 % (95-100) L Arterial Blood Base Excess -7.5 (-2-2) L Jonathan Test Positive Elayne Allred MD Jun 11, 2020 19:53
[2020-06-11] MEDS: Dyna-Hex 2% Top Sol 2oz TOPIC SCH (20:11)
--- NOTE | 2020-06-11 20:24 | NUR ---
NURSE NOTES: Dr Pantoja present at bedside to assess patient. Discussed current pt condition and plan of care. Pt BP noted to be stable attempting to titrate Levophed to 2mcg/min from 4mcg/min Will continue to evaluate and monitor pt
--- NOTE | 2020-06-11 20:30 | Cardiology Progress Note ---
Assessment/Plan Assessment/Plan sepsis respiratory failure ards renal insuf bacteremia abn cardiac enzyme due to demand sinsu rafael thrombocytopenia covid isolation removed as covid -x3 min trop abn ekg lat one form 05/30 reviewed non ischemic echo preformed 06/02 nl lv function pressor beign titrated off vent support abx tele sinus now i was called by miguel hall ekg persoanlly reviewed tele personally reviewed no pauses wbc improved renal insuf min better titrate off pressor if needed adn if rafael can use DA insted but at this time not needed Subjective ROS Limited/Unobtainable: Yes Subjective on [place] not communicative Objective Last 24 Hour Vital Signs Date Time Temp Pulse Resp B/P (MAP) Pulse Ox O2 Delivery O2 Flow Rate FiO2 06/11/20 20:00 100 06/11/20 20:00 133/65 06/11/20 20:00 Mechanical Ventilator Mechanical Ventilator 06/11/20 20:00 98.2 54 30 133/55 (81) 100 06/11/20 19:33 60 06/11/20 19:30 58 27 113/76 (88) 100 06/11/20 19:14 60 30 80 06/11/20 19:00 59 25 117/65 (82) 100 06/11/20 19:00 117/65 06/11/20 16:00 66 06/11/20 12:00 59 06/11/20 11:00 63 30 106/60 (75) 98 06/11/20 10:30 63 30 110/54 (72) 99 06/11/20 10:00 65 25 94/74 (81) 06/11/20 09:30 66 27 119/71 (87) 91 06/11/20 09:00 64 29 124/64 (84) 91 06/11/20 08:30 67 25 129/56 (80) 95 06/11/20 08:00 Mechanical Ventilator Mechanical Ventilator 06/11/20 08:00 98.6 64 29 112/65 (81) 96 06/11/20 08:00 71 06/11/20 08:00 80 06/11/20 07:45 70 28 139/93 (108) 97 06/11/20 07:30 69 27 134/115 (121) 97 06/11/20 07:05 60 30 97 Mechanical Ventilator 80 65 30 06/11/20 07:00 60 30 120/70 (87) 95 06/11/20 07:00 120/70 06/11/20 06:45 60 30 106/72 (83) 95 06/11/20 06:30 63 27 112/64 (80) 96 06/11/20 06:15 68 25 106/65 (79) 96 06/11/20 06:00 65 29 114/58 (76) 95 06/11/20 06:00 114/58 06/11/20 05:45 61 30 120/54 (76) 98 06/11/20 05:30 64 27 111/62 (78) 97 06/11/20 05:15 64 28 120/78 (92) 98 06/11/20 05:00 62 29 108/91 (97) 97 06/11/20 05:00 69 30 80 06/11/20 05:00 108/91 06/11/20 04:45 64 28 120/78 (92) 98 06/11/20 04:30 63 29 132/65 (87) 97 06/11/20 04:15 64 25 119/75 (90) 97 06/11/20 04:00 67 25 113/77 (89) 97 06/11/20 04:00 80 06/11/20 04:00 67 06/11/20 04:00 113/77 06/11/20 04:00 Mechanical Ventilator Mechanical Ventilator 06/11/20 03:45 64 27 135/95 (108) 97 06/11/20 03:30 66 26 122/63 (82) 98 06/11/20 03:15 69 32 80 06/11/20 03:15 72 25 135/81 (99) 97 06/11/20 03:00 61 29 130/67 (88) 99 06/11/20 03:00 130/67 06/11/20 02:45 62 29 112/70 (84) 99 06/11/20 02:30 68 27 116/85 (95) 99 06/11/20 02:15 68 27 133/57 (82) 100 06/11/20 02:00 64 27 115/57 (76) 100 06/11/20 02:00 115/57 06/11/20 01:45 73 31 109/43 (65) 99 06/11/20 01:40 74 33 80 06/11/20 01:30 85 25 122/70 (87) 86 06/11/20 01:15 67 27 115/68 (84) 98 06/11/20 01:00 109/92 06/11/20 01:00 69 23 109/92 (98) 98 06/11/20 00:45 71 26 103/69 (80) 96 06/11/20 00:30 66 28 121/67 (85) 99 06/11/20 00:15 72 26 117/79 (92) 98 06/11/20 00:00 74 24 150/84 (106) 96 06/11/20 00:00 80 06/11/20 00:00 150/84 06/11/20 00:00 Mechanical Ventilator Mechanical Ventilator 06/10/20 23:30 73 32 80 06/10/20 23:30 61 30 117/57 (77) 98 06/10/20 23:15 78 22 125/67 (86) 97 06/10/20 23:00 65 28 109/58 (75) 96 06/10/20 23:00 109/58 06/10/20 22:45 71 24 102/67 (79) 97 06/10/20 22:30 75 24 110/88 (95) 97 06/10/20 22:15 64 30 118/74 (89) 100 06/10/20 22:00 72 30 98/68 (78) 100 06/10/20 22:00 98/68 06/10/20 21:45 74 27 97/57 (70) 100 06/10/20 21:43 76 30 80 06/10/20 21:30 68 30 108/57 (74) 100 06/10/20 21:30 108/57 06/10/20 21:15 72 29 101/58 (72) 100 06/10/20 21:15 101/58 06/10/20 21:00 74 28 97/55 (69) 100 06/10/20 21:00 97/55 06/10/20 20:45 72 28 110/81 (91) 100 06/10/20 20:45 110/81 06/10/20 20:30 72 28 81/54 (63) 100 06/10/20 20:30 81/54 General Appearance: no apparent distress, alert, on vent, patient on isolation , isolation precautions Cardiovascular: normal rate Respiratory/Chest: rhonchi - bilaterally Abdomen: normal bowel sounds, non tender, soft Extremities: no swelling Intake and Output 06/10/20 06/11/20 19:00 07:00 Intake Total 1284.9555 ml 654.375 ml Output Total 701 ml 410 ml Balance 583.9555 ml 244.375 ml Free Water 30 ml IV Total 974.9555 ml 584.375 ml Tube Feeding 310 ml 40 ml Output Urine Total 700 ml 410 ml Stool Total 1 ml # Bowel Movements 2 Laboratory Tests Test 06/11/20 04:10 06/11/20 07:10 White Blood Count 9.7 K/UL (4.8-10.8) Red Blood Count 2.63 M/UL (4.20-5.40) L Hemoglobin 8.8 G/DL (12.0-16.0) L Hematocrit 26.9 % (37.0-47.0) L Mean Corpuscular Volume 102 FL (80-99) H Mean Corpuscular Hemoglobin 33.7 PG (27.0-31.0) H Mean Corpuscular Hemoglobin Concent 32.9 G/DL (32.0-36.0) Red Cell Distribution Width 13.5 % (11.6-14.8) Platelet Count 68 K/UL (150-450) L Mean Platelet Volume 8.8 FL (6.5-10.1) Neutrophils (%) (Auto) % (45.0-75.0) Lymphocytes (%) (Auto) % (20.0-45.0) Monocytes (%) (Auto) % (1.0-10.0) Eosinophils (%) (Auto) % (0.0-3.0) Basophils (%) (Auto) % (0.0-2.0) Differential Total Cells Counted 100 Neutrophils % (Manual) 84 % (45-75) H Lymphocytes % (Manual) 11 % (20-45) L Monocytes % (Manual) 5 % (1-10) Eosinophils % (Manual) 0 % (0-3) Basophils % (Manual) 0 % (0-2) Band Neutrophils 0 % (0-8) Platelet Estimate Decreased L Platelet Morphology Normal Hypochromasia 2+ Anisocytosis 1+ Macrocytosis 1+ Sodium Level 143 MMOL/L (136-145) Potassium Level 3.4 MMOL/L (3.5-5.1) L Chloride Level 112 MMOL/L (98-107) H Carbon Dioxide Level 20 MMOL/L (21-32) L Anion Gap 11 mmol/L (5-15) Blood Urea Nitrogen 37 mg/dL (7-18) H Creatinine 1.8 MG/DL (0.55-1.30) H Estimat Glomerular Filtration Rate 28.9 mL/min (>60) Glucose Level 96 MG/DL (74-106) Calcium Level 8.8 MG/DL (8.5-10.1) Phosphorus Level 3.9 MG/DL (2.5-4.9) Magnesium Level 2.1 MG/DL (1.8-2.4) Total Bilirubin 0.5 MG/DL (0.2-1.0) Aspartate Amino Transf (AST/SGOT) 23 U/L (15-37) Alanine Aminotransferase (ALT/SGPT) 12 U/L (12-78) Alkaline Phosphatase 50 U/L (46-116) Total Protein 4.8 G/DL (6.4-8.2) L Albumin 1.6 G/DL (3.4-5.0) L Globulin 3.2 g/dL Albumin/Globulin Ratio 0.5 (1.0-2.7) L Arterial Blood pH 7.438 (7.350-7.450) Arterial Blood Partial Pressure CO2 23.3 mmHg (35.0-45.0) *L Arterial Blood Partial Pressure O2 77.1 mmHg (75.0-100.0) Arterial Blood HCO3 15.4 mmol/L (22.0-26.0) *L Arterial Blood Oxygen Saturation 94.5 % (95-100) L Arterial Blood Base Excess -7.5 (-2-2) L Jonathan Test Positive Microbiology Date/Time Source Procedure Growth Status 06/09/20 16:14 Sputum Gram Stain - Final Resulted 06/09/20 16:14 Sputum Sputum Culture - Preliminary NO GROWTH AFTER 24 HOURS Resulted Josue Pantoja MD Jun 11, 2020 20:30
--- NOTE | 2020-06-11 21:00 | NUR ---
NURSE NOTES: Bedside assessment performed, assessed pt with a FLACC scale of 0 noted. VS obtained and remain stable at this time. Levophed continues to infuse at 2 mcg/min with no adverse effects noted. SBP remains >90 at this time, will continue to monitor and titrate accordingly. NS continues infusing at 50 mL/hr as ordered without incident. GT residual noted to decrease from 30mL to 10mL, will reassess and increase infusion rate as indicated towards goal. Fall, Aspiration, Seizure and Skin precautions observed. Pt remains resting in bed; Bed remains in the lowest position with the safety wheels engaged, call light within reach, side rails up x3 and bed alarm activated. Will continue plan of care. Will continue to monitor.
--- NOTE | 2020-06-11 23:00 | NUR ---
NURSE NOTES: Pt provided with a CHG bed bath, oral care and linen change. Anchorfast changed without incident due to soiling. ROM exercises performed per pt tolerance. Pt tolerated care well. Bedside assessment performed, assessed pt with a FLACC scale of 0 noted. VS obtained and remain stable at this time. Levophed continues to infuse at 2 mcg/min with no adverse effects noted from medication administration. VS obtained and SBP remains >90 at this time. Fall, Aspiration and Skin precautions observed. Pt remains resting in bed; Bed remains in the lowest position with the safety wheels engaged, call light within reach, side rails up x3 and bed alarm activated. Will continue plan of care. Will continue to monitor.
--- NOTE | 2020-06-11 23:03 | Internal Med Progress Note ---
Subjective Physician Name Guillaume Hawk Attending Physician Elayne Allred MD Current Medications Medications (Trade) Dose Ordered Sig/Katy Route PRN Reason Start Time Stop Time Status Last Admin Dose Admin Acetaminophen (Tylenol) 650 mg Q4H PRN GT FEVER 06/03/20 11:45 07/03/20 11:44 06/06/20 23:15 Ascorbic Acid (Vitamin C) 250 mg DAILY GT 06/11/20 09:00 07/11/20 08:59 06/11/20 09:53 Chlorhexidine Gluconate (Alla-Hex 2%) 1 applic DAILY@1999 TOPIC 06/08/20 20:00 09/06/20 19:59 06/11/20 20:11 Clotrimazole (Lotrimin) 1 applic Q12HR TOPIC 06/07/20 13:00 09/05/20 12:59 06/11/20 20:11 Daptomycin 350 mg/ Sodium Chloride 55 ml @ 100 mls/hr Q48H IV 06/05/20 11:00 06/13/20 10:59 06/11/20 11:25 Dextrose (Dextrose 50%) 25 ml Q30M PRN IV Hypoglycemia 06/03/20 11:30 08/28/20 11:29 Dextrose (Dextrose 50%) 50 ml Q30M PRN IV Hypoglycemia 06/03/20 11:30 08/28/20 11:29 Hydrocortisone (Solu-CORTEF) 100 mg EVERY 8 HOURS IV 06/07/20 14:00 09/05/20 13:59 06/11/20 21:05 Levothyroxine Sodium (Synthroid) 75 mcg DAILY GT 06/04/20 09:00 06/30/20 08:59 06/11/20 09:53 Meropenem 1 gm/ Sodium Chloride 55 ml @ 110 mls/hr Q12H IVPB 06/03/20 16:00 06/13/20 15:59 06/11/20 03:09 Midodrine (Pro-Amatine) 10 mg Q8HR GT 06/05/20 14:00 09/03/20 13:59 06/11/20 21:05 Norepinephrine Bitartrate 16 mg/ Dextrose 500 ml @ 0 mls/hr Q24H IV 06/08/20 07:45 07/07/20 12:59 06/10/20 08:20 Ondansetron HCl (Zofran) 4 mg Q6H PRN IVP Nausea & Vomiting 06/03/20 12:00 06/29/20 11:59 Pantoprazole (Protonix) 40 mg DAILY IV 06/04/20 09:00 06/30/20 08:59 06/11/20 09:53 Phenylephrine HCl 50 mg/Dextrose 250 ml @ 0 mls/hr Q24H PRN IV For hypotension 06/06/20 17:45 07/06/20 17:44 06/08/20 01:49 Polyethylene Glycol (Miralax) 17 gm DAILYPRN PRN GT Constipation 06/03/20 12:00 06/29/20 11:59 Sodium Chloride 1,000 ml @ 50 mls/hr Q20H IV 06/08/20 09:32 07/08/20 09:31 06/11/20 06:46 Valproic Acid (Depakene) 500 mg EVERY 8 HOURS GT 06/03/20 14:00 06/29/20 21:59 06/11/20 21:05 Allergies: Coded Allergies: No Known Allergies (Unverified , 10/16/18) Subjective in ICU, remained intubated on the vent, open eyes, unable to follow command. WBC : 9.7. Renal function improving. Objective Last Vital Signs Date Time Temp Pulse Resp B/P (MAP) Pulse Ox O2 Delivery O2 Flow Rate FiO2 06/11/20 22:54 65 30 80 06/11/20 22:30 109/55 (73) 100 06/11/20 20:00 Mechanical Ventilator Mechanical Ventilator 06/11/20 20:00 98.2 06/04/20 00:00 15.0 Laboratory Tests Test 06/11/20 04:10 06/11/20 07:10 White Blood Count 9.7 K/UL (4.8-10.8) Red Blood Count 2.63 M/UL (4.20-5.40) L Hemoglobin 8.8 G/DL (12.0-16.0) L Hematocrit 26.9 % (37.0-47.0) L Mean Corpuscular Volume 102 FL (80-99) H Mean Corpuscular Hemoglobin 33.7 PG (27.0-31.0) H Mean Corpuscular Hemoglobin Concent 32.9 G/DL (32.0-36.0) Red Cell Distribution Width 13.5 % (11.6-14.8) Platelet Count 68 K/UL (150-450) L Mean Platelet Volume 8.8 FL (6.5-10.1) Neutrophils (%) (Auto) % (45.0-75.0) Lymphocytes (%) (Auto) % (20.0-45.0) Monocytes (%) (Auto) % (1.0-10.0) Eosinophils (%) (Auto) % (0.0-3.0) Basophils (%) (Auto) % (0.0-2.0) Differential Total Cells Counted 100 Neutrophils % (Manual) 84 % (45-75) H Lymphocytes % (Manual) 11 % (20-45) L Monocytes % (Manual) 5 % (1-10) Eosinophils % (Manual) 0 % (0-3) Basophils % (Manual) 0 % (0-2) Band Neutrophils 0 % (0-8) Platelet Estimate Decreased L Platelet Morphology Normal Hypochromasia 2+ Anisocytosis 1+ Macrocytosis 1+ Sodium Level 143 MMOL/L (136-145) Potassium Level 3.4 MMOL/L (3.5-5.1) L Chloride Level 112 MMOL/L (98-107) H Carbon Dioxide Level 20 MMOL/L (21-32) L Anion Gap 11 mmol/L (5-15) Blood Urea Nitrogen 37 mg/dL (7-18) H Creatinine 1.8 MG/DL (0.55-1.30) H Estimat Glomerular Filtration Rate 28.9 mL/min (>60) Glucose Level 96 MG/DL (74-106) Calcium Level 8.8 MG/DL (8.5-10.1) Phosphorus Level 3.9 MG/DL (2.5-4.9) Magnesium Level 2.1 MG/DL (1.8-2.4) Total Bilirubin 0.5 MG/DL (0.2-1.0) Aspartate Amino Transf (AST/SGOT) 23 U/L (15-37) Alanine Aminotransferase (ALT/SGPT) 12 U/L (12-78) Alkaline Phosphatase 50 U/L (46-116) Total Protein 4.8 G/DL (6.4-8.2) L Albumin 1.6 G/DL (3.4-5.0) L Globulin 3.2 g/dL Albumin/Globulin Ratio 0.5 (1.0-2.7) L Arterial Blood pH 7.438 (7.350-7.450) Arterial Blood Partial Pressure CO2 23.3 mmHg (35.0-45.0) *L Arterial Blood Partial Pressure O2 77.1 mmHg (75.0-100.0) Arterial Blood HCO3 15.4 mmol/L (22.0-26.0) *L Arterial Blood Oxygen Saturation 94.5 % (95-100) L Arterial Blood Base Excess -7.5 (-2-2) L Jonathan Test Positive Microbiology Date/Time Source Procedure Growth Status 06/09/20 16:14 Sputum Gram Stain - Final Resulted 06/09/20 16:14 Sputum Sputum Culture - Preliminary NO GROWTH AFTER 24 HOURS Resulted Intake and Output 06/10/20 06/11/20 19:00 07:00 Intake Total 1284.9555 ml 654.375 ml Output Total 701 ml 410 ml Balance 583.9555 ml 244.375 ml Free Water 30 ml IV Total 974.9555 ml 584.375 ml Tube Feeding 310 ml 40 ml Output Urine Total 700 ml 410 ml Stool Total 1 ml # Bowel Movements 2 Objective General: remain intubated, unable to follow command, open eyes. HEENT: NCAT, sclera anicteric, PERRL, ET Tube. Neck: Supple, no significant jugular venous distention, Lungs: mechanical breath sounds decreased air at the bases, no Wheeze or Rales. Heart: Regular rate and rhythm, normal S1/S2, no murmurs/gallops Abdomen: soft, not tender, not distended. + bowel sounds, Morbid Obesity, PEG site intact. Extremities: No Cyanosis , clubbing, upper extremities edema. left upper extremity PICC line. Neuro: limited secondary to patient status, unable to follow command, bilateral upper and lower extremities contracted. Assessment/Plan Assessment/Plan Problem List: (1) HCAP (healthcare-associated pneumonia) (2) Sepsis (3) Down's syndrome (4) Dysphagia S/P PEG (5) Seizure disorder (6) Hypothyroidism (7) Acute Hypoxemic respiratory failure (8) Persistent, high grade bacteremia- r/o endocarditis (9) LEANN Plan: Tolerated tube feeding @ 40 cc/hr Follow-up with laboratory and cultures on Levophed drip @ 4 MCG Cont Daptomycin #10(abx d #13) for GPC bacteremia in view of LEANN Cont Meropenem#9 (abx d #13) given resp decompensation Guillaume Hawk MD Jun 11, 2020 23:03
[2020-06-12] VITALS (69 sets, daily range): BP systolic 72–154; BP diastolic 36–81
--- NOTE | 2020-06-12 01:00 | NUR ---
NURSE NOTES: Bedside assessment performed, assessed pt with a FLACC scale of 0 noted. VS obtained and remain stable at this time. Levophed continues to infuse at 2 mcg/min with no adverse effects noted. SBP remains >90 at this time, will continue to monitor and titrate accordingly. NS continues infusing at 50 mL/hr as ordered without incident. GT residual noted to be 10mL, will reassess and increase infusion rate as indicated towards goal. Wound care performed per orders without incident. Pt tolerated care well. Fall, Aspiration, Seizure and Skin precautions observed. Pt remains resting in bed; Bed remains in the lowest position with the safety wheels engaged, call light within reach, side rails up x3 and bed alarm activated. Will continue plan of care. Will continue to monitor.
--- NOTE | 2020-06-12 03:00 | NUR ---
NURSE NOTES: Bedside assessment performed, assessed pt with a FLACC scale of 0 noted. VS obtained and remain stable at this time. Levophed continues to infuse at 2 mcg/min with no adverse effects noted. SBP remains >90 at this time, will continue to monitor and titrate accordingly. RT present at bedside performing pt care. Pt noted to have a large amount of thick, clear/white secretions. Pt O2 saturation remains between 97-100% at this time. Fall, Aspiration, Seizure and Skin precautions observed. Pt remains resting in bed; Bed remains in the lowest position with the safety wheels engaged, call light within reach, side rails up x3 and bed alarm activated. Will continue plan of care. Will continue to monitor.
[2020-06-12] MEDS: Meropenem 1 GM in NS 55 ML IVPB SCH ×2 (04:12→15:28)
--- NOTE | 2020-06-12 05:00 | NUR ---
NURSE NOTES: Bedside assessment performed, assessed pt with a FLACC scale of 0 noted. VS obtained and remain stable at this time. Levophed continues to infuse at 2 mcg/min with no adverse effects noted. SBP remains >90 at this time, will continue to monitor and titrate accordingly. RT present at bedside performing pt care. Pt still noted to have a large amount of secretions. Pt O2 saturation remains between 97-100% at this time. Fall, Aspiration, Seizure and Skin precautions observed. Pt remains resting in bed; Bed remains in the lowest position with the safety wheels engaged, call light within reach, side rails up x3 and bed alarm activated. Will continue plan of care. Will continue to monitor.
[2020-06-12] MEDS: Valproic Acid 250mg/5ml Liquid GT SCH ×3 (05:19→21:19)
[2020-06-12] MEDS: Midodrine 10mg tab GT SCH ×3 (05:19→21:19)
[2020-06-12] MEDS: Hydrocortisone 100mg Inj IV SCH ×3 (05:19→21:19)
[2020-06-12 05:21] LABS: HEMATOCRIT 24.6 % (37.0-47.0); HEMOGLOBIN 8.3 G/DL (12.0-16.0); MEAN CORPUSCULAR VOLUME 101 FL (80-99); PLATELET COUNT 53 K/UL (150-450); RED BLOOD COUNT 2.44 M/UL (4.20-5.40); RED CELL DISTRIBUTION WIDTH 12.7 % (11.6-14.8); WHITE BLOOD COUNT 9.1 K/UL (4.8-10.8)
[2020-06-12 06:03] LABS: ALANINE AMINOTRANSFERASE 14 U/L (12-78); ALBUMIN 1.4 G/DL (3.4-5.0); ALBUMIN/GLOBULIN RATIO 0.5 (1.0-2.7); ALKALINE PHOSPHATASE 48 U/L (46-116); ANION GAP 13 mmol/L (5-15); ASPARTATE AMINO TRANSFERASE 28 U/L (15-37); BILIRUBIN,TOTAL 0.5 MG/DL (0.2-1.0); BLOOD UREA NITROGEN 43 mg/dL (7-18); CALCIUM 8.4 MG/DL (8.5-10.1); CARBON DIOXIDE 18 MMOL/L (21-32); CHLORIDE 116 MMOL/L (98-107); CREATININE 1.6 MG/DL (0.55-1.30); PHOSPHORUS 3.2 MG/DL (2.5-4.9); POTASSIUM 3.5 MMOL/L (3.5-5.1); SODIUM 147 MMOL/L (136-145)
--- NOTE | 2020-06-12 07:06 | NUR ---
NURSE HAND-OFF REPORT: Latest Vital Signs: Temperature 98.1 , Pulse 54 , B/P 113 /52 , Respiratory Rate 30 , O2 SAT 99 , Mechanical Ventilator, O2 Flow Rate 15.0 . Vital Sign Comment: - EKG Rhythm: Sinus Bradycardia Rhythm change?: N MD Notified?: - MD Response: Latest Osorio Fall Score: 50 Fall Risk: High Risk Safety Measures: Call light Within Reach, Bed Alarm Zone 2, Side Rails Side Rails x3, Bed position Low and Locked. Fall Precautions: Door Sign Patient Fall Education Report given to TAI Weston. Endorsed plan of care.
--- NOTE | 2020-06-12 07:31 | NUR ---
NURSE NOTES: Report received from TAI Renee. Patient noted with short episode of HR 49 for less than 1 second and go back to between 51-66, message left to Dr Gamez, awaiting new order.Patient afebrile and orally intubated 7.02/27 AC 30 VT 500 FIO2 100% Peep 10.On GT feeding Jevity 1.2 at 30cc/hr goal 50cc. Tolerate well at this time and placement intact.Keep HOB elevated at 35 degree to prevent risks for aspiration.On P20 mattress for sacral wound stage II. JODY PICC dressing clean dry and intact running Levophed at 2mcg/hr and NS at 50 cc/hr.Gregorio catheter intact draining clear yellow urine with no apparent sediments.Turned and repositioned,kept clean and dry.Call light within easy reach.Will continue same care plan Addendum: 06/12/20 at 0751 by Trista Montes RN Per Dr Gamez if patient does not need dopamine for BP than she does not need it for bradycardia yet.
[2020-06-12] MEDS: Norepinephrine Bitartrate 16 MG in D5W 500ml 484 ML IV SCH ×2 (07:45→08:43)
[2020-06-12] MEDS: Ascorbic Acid 500mg tab GT SCH (08:24)
[2020-06-12] MEDS: Pantoprazole Inj IV SCH (08:24)
[2020-06-12] MEDS ORDERED: NS 275ml ONE ×2 (09:25→18:42)
--- NOTE | 2020-06-12 10:10 | NUR ---
Payment Analyst: Patient seen by Dr Allred, will follow up with new orders.Made aware Sodium level. Turned and repositioned, no significant change in condition.Off Levophed ,will continue close monitoring.HOB remains elevated to prevent aspiration. Addendum: 06/12/20 at 1043 by Trista Montes RN NURSE NOTES: Patient seen by Dr Allred, will follow up with new orders.Made aware Sodium level. Turned and repositioned, no significant change in condition.Off Levophed ,will continue close monitoring.HOB remains elevated to prevent aspiration.
--- NOTE | 2020-06-12 10:55 | NUR ---
NURSE NOTES: Patient was noted for episode of bradycardia at 48, Dr Allred aware order to start Dopamine drip
--- NOTE | 2020-06-12 11:13 | Pulmonolgy Critical Care Note ---
Critical Care - Asmt/Plan Problems: (1) Acute respiratory failure (2) Bacteremia (3) Pneumonia (4) Sepsis (5) HCAP (healthcare-associated pneumonia) (6) Seizure disorder (7) Down's syndrome Respiratory: monitor respiratory rate, adjust FIO2, CXR Cardiac: continue pressors, continue to monitor HR/BP Renal: F/U I&O, keep IV fluid, check electrolytes Infectious Disease: check cultures, continue antibiotics Gastrointestinal: continue feedings/current rate Endocrine: monitor blood sugar, check HgA1C Neurologic: PRN Ativan, PRN Morphine Affect: PRN ativan Prophylaxis: Heparin Time Spent (Minutes): 40 Notes 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, 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, 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, ID Critical Care - Objective Last 24 Hour Vital Signs Date Time Temp Pulse Resp B/P (MAP) Pulse Ox O2 Delivery O2 Flow Rate FiO2 06/12/20 11:00 50 30 113/52 (72) 100 06/12/20 10:45 54 30 98/50 (66) 100 06/12/20 10:30 58 29 109/53 (71) 99 06/12/20 10:15 55 30 108/52 (70) 100 06/12/20 10:00 98/50 06/12/20 10:00 57 27 96/50 (65) 99 06/12/20 09:45 61 29 107/68 (81) 99 06/12/20 09:30 55 27 126/57 (80) 97 06/12/20 09:15 53 30 111/51 (71) 100 06/12/20 09:00 59 28 109/53 (71) 100 06/12/20 09:00 107/68 06/12/20 08:57 54 30 80 06/12/20 08:45 61 25 116/47 (70) 99 06/12/20 08:43 135/58 06/12/20 08:30 53 30 135/58 (83) 99 06/12/20 08:15 98.4 53 30 140/65 (90) 99 06/12/20 08:00 51 06/12/20 08:00 Mechanical Ventilator Mechanical Ventilator 06/12/20 08:00 53 29 122/62 (82) 99 06/12/20 08:00 100 06/12/20 07:45 140/78 06/12/20 07:30 60 24 108/51 (70) 98 06/12/20 07:29 58 30 80 06/12/20 07:00 108/71 06/12/20 07:00 53 30 108/51 (70) 100 06/12/20 06:30 54 30 113/52 (72) 99 06/12/20 06:15 55 30 121/48 (72) 99 06/12/20 06:00 122/57 06/12/20 06:00 56 30 122/57 (78) 99 06/12/20 05:47 62 30 72/47 (55) 99 06/12/20 05:45 72/47 06/12/20 05:30 61 26 109/44 (65) 99 06/12/20 05:30 109/44 06/12/20 05:05 70 30 80 06/12/20 05:00 112/59 06/12/20 05:00 60 25 112/59 (76) 99 06/12/20 04:30 62 28 103/58 (73) 99 06/12/20 04:00 98.1 56 29 105/57 (73) 99 06/12/20 04:00 105/57 06/12/20 04:00 100 06/12/20 04:00 Mechanical Ventilator Mechanical Ventilator 06/12/20 03:30 59 29 102/53 (69) 100 06/12/20 03:14 68 32 80 06/12/20 03:11 61 06/12/20 03:00 63 25 92/53 (66) 99 06/12/20 03:00 92/53 06/12/20 02:30 59 28 102/56 (71) 99 06/12/20 02:00 72 30 125/73 (90) 98 06/12/20 02:00 125/73 06/12/20 01:30 61 27 115/60 (78) 97 06/12/20 01:00 102/69 06/12/20 01:00 59 27 102/69 (80) 99 06/12/20 00:56 63 30 80 06/12/20 00:30 54 30 103/58 (73) 99 06/12/20 00:00 100 06/12/20 00:00 98.2 55 30 111/49 (69) 98 06/12/20 00:00 Mechanical Ventilator Mechanical Ventilator 06/12/20 00:00 111/49 06/11/20 23:30 57 30 108/54 (72) 99 06/11/20 23:17 67 06/11/20 23:00 102/49 06/11/20 23:00 64 27 102/49 (66) 100 06/11/20 22:54 65 30 80 06/11/20 22:30 59 28 109/55 (73) 100 06/11/20 22:00 59 25 108/52 (70) 100 06/11/20 22:00 108/52 06/11/20 21:45 61 27 103/50 (67) 99 06/11/20 21:30 55 30 102/55 (71) 100 06/11/20 21:15 63 28 97/47 (64) 99 06/11/20 21:00 100/55 06/11/20 21:00 61 27 100/55 (70) 99 06/11/20 20:57 68 30 80 06/11/20 20:45 58 26 101/51 (68) 100 06/11/20 20:30 66 23 94/53 (67) 99 06/11/20 20:25 118/57 06/11/20 20:00 100 06/11/20 20:00 133/65 06/11/20 20:00 Mechanical Ventilator Mechanical Ventilator 06/11/20 20:00 98.2 54 30 133/55 (81) 100 06/11/20 19:33 60 06/11/20 19:30 58 27 113/76 (88) 100 06/11/20 19:14 60 30 80 06/11/20 19:00 59 25 117/65 (82) 100 06/11/20 19:00 117/65 06/11/20 16:00 66 06/11/20 12:00 59 Status: sedated Condition: critical HEENT: atraumatic Neck: full ROM Heart: HR/BP stable, regular Abdomen: soft, active bowel sounds Extremities: no C/C/E, edema Micro: Microbiology Date/Time Source Procedure Growth Status 06/09/20 16:14 Sputum Gram Stain - Final Complete 06/09/20 16:14 Sputum Sputum Culture - Final NO GROWTH AFTER 48 HOURS Complete Accucheck: 131 Critical Care - Subjective ROS Limited/Unobtainable: Yes Condition: critical EKG Rhythm: Sinus Rhythm FI02: 80 Vent Support Breath Rate: 30 Vent Support Mode: AC Vent Tidal Volume: 500 Sputum Amount: Scant PEEP: 10.0 PIP: 45 Tube Feeding Amount: 30 I&O: Intake and Output 06/11/20 06/12/20 19:00 07:00 Intake Total 97.5 ml 1044.3725 ml Output Total 175 ml 550 ml Balance -77.5 ml 494.3725 ml Free Water 120 ml IV Total 57.5 ml 674.3725 ml Tube Feeding 40 ml 250 ml Output Urine Total 175 ml 550 ml CXR: right effusion, ET in good position ET-Tube: 7.5 ET Position: 22 Labs: Laboratory Tests Test 06/12/20 04:20 06/12/20 07:30 White Blood Count 9.1 K/UL (4.8-10.8) Red Blood Count 2.44 M/UL (4.20-5.40) L Hemoglobin 8.3 G/DL (12.0-16.0) L Hematocrit 24.6 % (37.0-47.0) L Mean Corpuscular Volume 101 FL (80-99) H Mean Corpuscular Hemoglobin 33.9 PG (27.0-31.0) H Mean Corpuscular Hemoglobin Concent 33.7 G/DL (32.0-36.0) Red Cell Distribution Width 12.7 % (11.6-14.8) Platelet Count 53 K/UL (150-450) L Mean Platelet Volume 8.9 FL (6.5-10.1) Neutrophils (%) (Auto) % (45.0-75.0) Lymphocytes (%) (Auto) % (20.0-45.0) Monocytes (%) (Auto) % (1.0-10.0) Eosinophils (%) (Auto) % (0.0-3.0) Basophils (%) (Auto) % (0.0-2.0) Sodium Level 147 MMOL/L (136-145) H Potassium Level 3.5 MMOL/L (3.5-5.1) Chloride Level 116 MMOL/L (98-107) H Carbon Dioxide Level 18 MMOL/L (21-32) L Anion Gap 13 mmol/L (5-15) Blood Urea Nitrogen 43 mg/dL (7-18) H Creatinine 1.6 MG/DL (0.55-1.30) H Estimat Glomerular Filtration Rate 33.1 mL/min (>60) Glucose Level 99 MG/DL (74-106) Calcium Level 8.4 MG/DL (8.5-10.1) L Phosphorus Level 3.2 MG/DL (2.5-4.9) Magnesium Level 2.2 MG/DL (1.8-2.4) Total Bilirubin 0.5 MG/DL (0.2-1.0) Aspartate Amino Transf (AST/SGOT) 28 U/L (15-37) Alanine Aminotransferase (ALT/SGPT) 14 U/L (12-78) Alkaline Phosphatase 48 U/L (46-116) Total Protein 4.4 G/DL (6.4-8.2) L Albumin 1.4 G/DL (3.4-5.0) L Globulin 3.0 g/dL Albumin/Globulin Ratio 0.5 (1.0-2.7) L Cryptococcus Antigen Pending Arterial Blood pH 7.477 (7.350-7.450) Arterial Blood Partial Pressure CO2 20.4 mmHg (35.0-45.0) *L Arterial Blood Partial Pressure O2 82.0 mmHg (75.0-100.0) Arterial Blood HCO3 14.7 mmol/L (22.0-26.0) *L Arterial Blood Oxygen Saturation 95.1 % (95-100) Arterial Blood Base Excess -7.5 (-2-2) L Jonathan Test Positive Elayne Allred MD Jun 12, 2020 11:13
--- NOTE | 2020-06-12 11:14 | Nephrology Progress Note ---
Assessment/Plan Problem List: (1) LEANN (acute kidney injury) (2) Respiratory failure requiring intubation (3) Down's syndrome (4) Seizure disorder (5) Hypothyroidism Assessment Acute renal failure, likely due to hypotension Acute respiratory distress, hypoxia Seizure disorder Hypothyroidism Down syndrome Full code Fluid challenge with IV fluids and albumin Midodrine for BP above 100 systolic Check TSH level Check Correct level Monitor renal parameters Urine studies Per orders Plan June 12: Status quo. Labs reviewed. Renal parameters stable. Serum creatinine down to 1.6. Medication list reviewed. Continues to be on midodrine. Continue per consultants. June 11: Status quo. Labs reviewed. Electrolytes adjusted. Serum creatinine down to 1.8. Continue per consultants. June 10: Status quo. Labs reviewed. Phosphorus supplement IV given. Serum creatinine 2. Continue per consultants. June 09: Requires less pressors. Albumin bolus given. 1 dose of Lasix IV ordered as the patient severely edematous. Patient serum albumin is very low. Continue per consultants. June 08: Continues to be intubated. Labs reviewed. Serum creatinine 1.9 unchanged. Blood pressure more stable. Off 1 of the pressors. Continue to monitor renal parameters. Continue per consultants. Patient now on hydrocortisone 100 mg every 8 hours. Will decrease IV fluid. Normal saline down to 50 cc an hour. June 07: Intubated. Labs reviewed. Creatinine 1.9 unchanged. Continue same treatment plan. Per consultants. Overall poor prognosis since the patient remains on pressors and her pulmonary status is worsening. June 06: Remains intubated. Labs reviewed. Creatinine 1.9. Blood pressure systolic 90s. Continue per consultants. June 05: Remains intubated. Labs reviewed. Serum creatinine lower to 2. Vancomycin level lower. Remains hypotensive on pressors. Will increase midodrine to 10 mg every 8 hours. Continue per consultants. Continue to monitor renal parameters. June 04: Patient now in ICU. Intubated. On pressors. Labs reviewed. Will increase midodrine. Aim to keep blood pressure over 100 systolic. Will give albumin bolus. Will check vancomycin level which was elevated when checked previously on June 01. Will monitor renal parameters. Continue per consultants. Subjective ROS Limited/Unobtainable: Yes Objective Objective Last 24 Hour Vital Signs Date Time Temp Pulse Resp B/P (MAP) Pulse Ox O2 Delivery O2 Flow Rate FiO2 06/12/20 11:00 50 30 113/52 (72) 100 06/12/20 10:45 54 30 98/50 (66) 100 06/12/20 10:30 58 29 109/53 (71) 99 06/12/20 10:15 55 30 108/52 (70) 100 06/12/20 10:00 98/50 06/12/20 10:00 57 27 96/50 (65) 99 06/12/20 09:45 61 29 107/68 (81) 99 06/12/20 09:30 55 27 126/57 (80) 97 06/12/20 09:15 53 30 111/51 (71) 100 06/12/20 09:00 59 28 109/53 (71) 100 06/12/20 09:00 107/68 06/12/20 08:57 54 30 80 06/12/20 08:45 61 25 116/47 (70) 99 06/12/20 08:43 135/58 06/12/20 08:30 53 30 135/58 (83) 99 06/12/20 08:15 98.4 53 30 140/65 (90) 99 06/12/20 08:00 51 06/12/20 08:00 Mechanical Ventilator Mechanical Ventilator 06/12/20 08:00 53 29 122/62 (82) 99 06/12/20 08:00 100 06/12/20 07:45 140/78 06/12/20 07:30 60 24 108/51 (70) 98 06/12/20 07:29 58 30 80 06/12/20 07:00 108/71 06/12/20 07:00 53 30 108/51 (70) 100 06/12/20 06:30 54 30 113/52 (72) 99 06/12/20 06:15 55 30 121/48 (72) 99 06/12/20 06:00 122/57 06/12/20 06:00 56 30 122/57 (78) 99 06/12/20 05:47 62 30 72/47 (55) 99 06/12/20 05:45 72/47 06/12/20 05:30 61 26 109/44 (65) 99 06/12/20 05:30 109/44 06/12/20 05:05 70 30 80 06/12/20 05:00 112/59 9/4/20 05:00 60 25 112/59 (76) 99 06/12/20 04:30 62 28 103/58 (73) 99 06/12/20 04:00 98.1 56 29 105/57 (73) 99 06/12/20 04:00 105/57 06/12/20 04:00 100 06/12/20 04:00 Mechanical Ventilator Mechanical Ventilator 06/12/20 03:30 59 29 102/53 (69) 100 06/12/20 03:14 68 32 80 06/12/20 03:11 61 06/12/20 03:00 63 25 92/53 (66) 99 06/12/20 03:00 92/53 06/12/20 02:30 59 28 102/56 (71) 99 06/12/20 02:00 72 30 125/73 (90) 98 06/12/20 02:00 125/73 06/12/20 01:30 61 27 115/60 (78) 97 06/12/20 01:00 102/69 06/12/20 01:00 59 27 102/69 (80) 99 06/12/20 00:56 63 30 80 06/12/20 00:30 54 30 103/58 (73) 99 06/12/20 00:00 100 06/12/20 00:00 98.2 55 30 111/49 (69) 98 06/12/20 00:00 Mechanical Ventilator Mechanical Ventilator 06/12/20 00:00 111/49 06/11/20 23:30 57 30 108/54 (72) 99 06/11/20 23:17 67 06/11/20 23:00 102/49 06/11/20 23:00 64 27 102/49 (66) 100 06/11/20 22:54 65 30 80 06/11/20 22:30 59 28 109/55 (73) 100 06/11/20 22:00 59 25 108/52 (70) 100 06/11/20 22:00 108/52 06/11/20 21:45 61 27 103/50 (67) 99 06/11/20 21:30 55 30 102/55 (71) 100 06/11/20 21:15 63 28 97/47 (64) 99 06/11/20 21:00 100/55 06/11/20 21:00 61 27 100/55 (70) 99 06/11/20 20:57 68 30 80 06/11/20 20:45 58 26 101/51 (68) 100 06/11/20 20:30 66 23 94/53 (67) 99 06/11/20 20:25 118/57 06/11/20 20:00 100 06/11/20 20:00 133/65 06/11/20 20:00 Mechanical Ventilator Mechanical Ventilator 06/11/20 20:00 98.2 54 30 133/55 (81) 100 06/11/20 19:33 60 06/11/20 19:30 58 27 113/76 (88) 100 06/11/20 19:14 60 30 80 06/11/20 19:00 59 25 117/65 (82) 100 06/11/20 19:00 117/65 06/11/20 16:00 66 06/11/20 12:00 59 Intake and Output 06/11/20 06/12/20 19:00 07:00 Intake Total 97.5 ml 1044.3725 ml Output Total 175 ml 550 ml Balance -77.5 ml 494.3725 ml Free Water 120 ml IV Total 57.5 ml 674.3725 ml Tube Feeding 40 ml 250 ml Output Urine Total 175 ml 550 ml Laboratory Tests 06/12/20 04:20: White Blood Count 9.1, Red Blood Count 2.44L, Hemoglobin 8.3L, Hematocrit 24.6L , Mean Corpuscular Volume 101H, Mean Corpuscular Hemoglobin 33.9H, Mean Corpuscular Hemoglobin Concent 33.7, Red Cell Distribution Width 12.7, Platelet Count 53L, Mean Platelet Volume 8.9, Neutrophils (%) (Auto) , Lymphocytes (%) ( Auto) , Monocytes (%) (Auto) , Eosinophils (%) (Auto) , Basophils (%) (Auto) , Sodium Level 147H, Potassium Level 3.5, Chloride Level 116H, Carbon Dioxide Level 18L, Anion Gap 13, Blood Urea Nitrogen 43H, Creatinine 1.6H, Estimat Glomerular Filtration Rate 33.1, Glucose Level 99, Calcium Level 8.4L, Phosphorus Level 3.2, Magnesium Level 2.2, Total Bilirubin 0.5, Aspartate Amino Transf (AST/SGOT) 28, Alanine Aminotransferase (ALT/SGPT) 14, Alkaline Phosphatase 48, Total Protein 4.4L, Albumin 1.4L, Globulin 3.0, Albumin/ Globulin Ratio 0.5L, Cryptococcus Antigen [Pending] 06/12/20 07:30: Arterial Blood pH 7.477H, Arterial Blood Partial Pressure CO2 20.4*L, Arterial Blood Partial Pressure O2 82.0, Arterial Blood HCO3 14.7*L, Arterial Blood Oxygen Saturation 95.1, Arterial Blood Base Excess -7.5L, Jonathan Test Positive Height (Feet): 5 Height (Inches): 3.00 Weight (Pounds): 172 General Appearance: no apparent distress EENT: other - Continues to be vented Cardiovascular: bradycardia - Rate 50s Respiratory/Chest: decreased breath sounds Abdomen: distended Keron Pitt MD Jun 12, 2020 11:14
[2020-06-12] MEDS: DOPamine 400mg/250ml 250 ML IV SCH (11:19)
--- NOTE | 2020-06-12 12:47 | NUR ---
NURSE NOTES: Patient remains on Dopamine drip , increase rate at 3mcg/hr HR at 52 bpm, will continue to monitor.No significant change in condition at this time.Will continue close monitoring.Call light within easy reach.
--- NOTE | 2020-06-12 14:02 | Infectious Diseases Prog Note ---
Assessment/Plan ASSESSMENT: sp code blue 06/03 Septic Shock; SP Fever, SP Leukocytosis; SP -06/03 u/a no pyuria Pneumonia.- COVID 19 neg x3 Acute hypoxic resp failure on VM> NRB 15l 100%; hypoxic on ABG> now VDRF 06/03 - Fio2 80% >100% 06/05> 60% 06/09 >80% 06/10 -06/09 sp cx Neg 06/08 CXR: Extensive bilateral interstitial and airspace disease appears similar to the prior exam. Moderate to large bilateral pleural effusions appear unchanged. 06/05 CXR: Increasing left upper lobe dense consolidation and likely increasing bilateral pleural fluid. Persistent diffuse dense consolidation elsewhere -06/03 sp cx normal resp marie -06/02 CXR: Increased atelectasis of the right lung, since prior exam of 3 days earlier. New or increased right pleural effusion. Increased left basilar consolidation and/or pleural fluid -COVID Rapid PCR neg 05/31, 05/31, 06/03 -05/30 spc x Group G strep -05/30 CXR: Reduced lung volumes. Patchy bilateral predominantly interstitial pulmonary opacities. Could be from edema and/or pneumonia. There is a broader differential. -legionella ag urine, blasto ab, Histo ab, HIV ab screen neg Persistent, high grade bacteremia- -05/30 Bcx 4/4 sets S. haemolyticus; 05/31 Bcx 3/4 S/ epi; 06/04 Bcx 1.4 S. warnerri; 06/06 Bcx Neg -2d echo: no vegetaions seen ua/ wbc 10-15, nit neg, leuk +1; ucx Neg LEANN; -supratherapeutic vanco levels -Seizure disorder. - Hypothyroidism. - Down syndrome. History of PEG tube placement. [facility] resident PLAN: Cont Daptomycin #11(abx d #14/14) for GPC bacteremia in view of LEANN [monitor CK , was 51 on 06/03] Cont Meropenem#10/10-14 (abx d #14) given resp decompensation -06/10 SP MIcafungin #7, Linezolid #5 f/u Repeat BCx given persistent bacteremia CT chest when stable enough, not currently given on FiO2 100% and pressors If pleural effusions, should be tapped to r/o empyema, send for bacterial cx as well as cell count and diff F/u cx of exudate around G-tube Trend GIB (black stools) 06/05 SP Azithromycin #7/7 06/03 SP Ceftriaxone #2 06/02 SP IV Vancomycin #4, Zosyn #4 05/30 SP Cefepime x1, Flagyl x1 - Monitor CBC, BMP. -f/u Cocci ab, CrAg .f/u Repeat cx - COVID neg x3 - Monitor chest x-ray. - Monitor the patient's clinical course and labs. Based on those, we will do further recommendation. Thank you, Dr. Allred, for allowing me to participate in the care of this patient. I will follow the patient with you at this hospitalization. Discussed with RN Subjective Allergies: Coded Allergies: No Known Allergies (Unverified , 10/16/18) afebrile remains intubated, Fio2 80% off pressors now Objective Last 24 Hour Vital Signs Date Time Temp Pulse Resp B/P (MAP) Pulse Ox O2 Delivery O2 Flow Rate FiO2 06/12/20 13:00 58 29 154/56 (88) 95 06/12/20 13:00 154/58 06/12/20 12:51 53 30 80 06/12/20 12:45 53 30 122/50 (74) 96 06/12/20 12:30 53 30 123/54 (77) 95 06/12/20 12:15 55 30 126/57 (80) 95 06/12/20 12:00 98.6 57 30 123/48 (73) 96 06/12/20 12:00 Mechanical Ventilator Mechanical Ventilator 06/12/20 12:00 100 06/12/20 12:00 61 06/12/20 12:00 128/57 06/12/20 11:45 78 28 151/74 (99) 95 06/12/20 11:30 57 28 111/74 (86) 99 06/12/20 11:26 66 30 80 06/12/20 11:19 100/46 06/12/20 11:15 49 30 100/46 (64) 99 06/12/20 11:00 50 30 113/52 (72) 100 06/12/20 10:45 54 30 98/50 (66) 100 06/12/20 10:30 58 29 109/53 (71) 99 06/12/20 10:15 55 30 108/52 (70) 100 06/12/20 10:00 98/50 06/12/20 10:00 57 27 96/50 (65) 99 06/12/20 09:45 61 29 107/68 (81) 99 06/12/20 09:30 55 27 126/57 (80) 97 06/12/20 09:15 53 30 111/51 (71) 100 06/12/20 09:00 59 28 109/53 (71) 100 06/12/20 09:00 107/68 06/12/20 08:57 54 30 80 06/12/20 08:45 61 25 116/47 (70) 99 06/12/20 08:43 135/58 06/12/20 08:30 53 30 135/58 (83) 99 06/12/20 08:15 98.4 53 30 140/65 (90) 99 06/12/20 08:00 51 06/12/20 08:00 Mechanical Ventilator Mechanical Ventilator 06/12/20 08:00 53 29 122/62 (82) 99 06/12/20 08:00 100 06/12/20 07:45 140/78 06/12/20 07:30 60 24 108/51 (70) 98 06/12/20 07:29 58 30 80 06/12/20 07:00 108/71 06/12/20 07:00 53 30 108/51 (70) 100 06/12/20 06:30 54 30 113/52 (72) 99 06/12/20 06:15 55 30 121/48 (72) 99 06/12/20 06:00 122/57 06/12/20 06:00 56 30 122/57 (78) 99 06/12/20 05:47 62 30 72/47 (55) 99 06/12/20 05:45 72/47 06/12/20 05:30 61 26 109/44 (65) 99 06/12/20 05:30 109/44 06/12/20 05:05 70 30 80 06/12/20 05:00 112/59 06/12/20 05:00 60 25 112/59 (76) 99 06/12/20 04:30 62 28 103/58 (73) 99 06/12/20 04:00 98.1 56 29 105/57 (73) 99 06/12/20 04:00 105/57 06/12/20 04:00 100 06/12/20 04:00 Mechanical Ventilator Mechanical Ventilator 06/12/20 03:30 59 29 102/53 (69) 100 06/12/20 03:14 68 32 80 06/12/20 03:11 61 06/12/20 03:00 63 25 92/53 (66) 99 06/12/20 03:00 92/53 06/12/20 02:30 59 28 102/56 (71) 99 06/12/20 02:00 72 30 125/73 (90) 98 06/12/20 02:00 125/73 06/12/20 01:30 61 27 115/60 (78) 97 06/12/20 01:00 102/69 06/12/20 01:00 59 27 102/69 (80) 99 06/12/20 00:56 63 30 80 06/12/20 00:30 54 30 103/58 (73) 99 06/12/20 00:00 100 06/12/20 00:00 98.2 55 30 111/49 (69) 98 06/12/20 00:00 Mechanical Ventilator Mechanical Ventilator 06/12/20 00:00 111/49 06/11/20 23:30 57 30 108/54 (72) 99 06/11/20 23:17 67 06/11/20 23:00 102/49 06/11/20 23:00 64 27 102/49 (66) 100 06/11/20 22:54 65 30 80 06/11/20 22:30 59 28 109/55 (73) 100 06/11/20 22:00 59 25 108/52 (70) 100 06/11/20 22:00 108/52 06/11/20 21:45 61 27 103/50 (67) 99 06/11/20 21:30 55 30 102/55 (71) 100 06/11/20 21:15 63 28 97/47 (64) 99 06/11/20 21:00 100/55 06/11/20 21:00 61 27 100/55 (70) 99 06/11/20 20:57 68 30 80 06/11/20 20:45 58 26 101/51 (68) 100 06/11/20 20:30 66 23 94/53 (67) 99 06/11/20 20:25 118/57 06/11/20 20:00 100 06/11/20 20:00 133/65 06/11/20 20:00 Mechanical Ventilator Mechanical Ventilator 06/11/20 20:00 98.2 54 30 133/55 (81) 100 06/11/20 19:33 60 06/11/20 19:30 58 27 113/76 (88) 100 06/11/20 19:14 60 30 80 06/11/20 19:00 59 25 117/65 (82) 100 06/11/20 19:00 117/65 06/11/20 16:00 66 Height (Feet): 5 Height (Inches): 3.00 Weight (Pounds): 172 HEENT: No pale conjunctivae. No icterus. ETT in place NECK: No lymphadenopathy. CHEST: Coarse breathing sounds. HEART: S1 and S2. ABDOMEN: Soft. PEG tube in place. EXTREMITIES: No cyanosis at this time . SKIN: no rash Microbiology Date/Time Source Procedure Growth Status 06/09/20 16:14 Sputum Gram Stain - Final Complete 06/09/20 16:14 Sputum Sputum Culture - Final NO GROWTH AFTER 48 HOURS Complete Laboratory Tests Test 06/12/20 04:20 06/12/20 07:30 White Blood Count 9.1 K/UL (4.8-10.8) Red Blood Count 2.44 M/UL (4.20-5.40) L Hemoglobin 8.3 G/DL (12.0-16.0) L Hematocrit 24.6 % (37.0-47.0) L Mean Corpuscular Volume 101 FL (80-99) H Mean Corpuscular Hemoglobin 33.9 PG (27.0-31.0) H Mean Corpuscular Hemoglobin Concent 33.7 G/DL (32.0-36.0) Red Cell Distribution Width 12.7 % (11.6-14.8) Platelet Count 53 K/UL (150-450) L Mean Platelet Volume 8.9 FL (6.5-10.1) Neutrophils (%) (Auto) % (45.0-75.0) Lymphocytes (%) (Auto) % (20.0-45.0) Monocytes (%) (Auto) % (1.0-10.0) Eosinophils (%) (Auto) % (0.0-3.0) Basophils (%) (Auto) % (0.0-2.0) Sodium Level 147 MMOL/L (136-145) H Potassium Level 3.5 MMOL/L (3.5-5.1) Chloride Level 116 MMOL/L (98-107) H Carbon Dioxide Level 18 MMOL/L (21-32) L Anion Gap 13 mmol/L (5-15) Blood Urea Nitrogen 43 mg/dL (7-18) H Creatinine 1.6 MG/DL (0.55-1.30) H Estimat Glomerular Filtration Rate 33.1 mL/min (>60) Glucose Level 99 MG/DL (74-106) Calcium Level 8.4 MG/DL (8.5-10.1) L Phosphorus Level 3.2 MG/DL (2.5-4.9) Magnesium Level 2.2 MG/DL (1.8-2.4) Total Bilirubin 0.5 MG/DL (0.2-1.0) Aspartate Amino Transf (AST/SGOT) 28 U/L (15-37) Alanine Aminotransferase (ALT/SGPT) 14 U/L (12-78) Alkaline Phosphatase 48 U/L (46-116) Total Protein 4.4 G/DL (6.4-8.2) L Albumin 1.4 G/DL (3.4-5.0) L Globulin 3.0 g/dL Albumin/Globulin Ratio 0.5 (1.0-2.7) L Cryptococcus Antigen Pending Arterial Blood pH 7.477 (7.350-7.450) Arterial Blood Partial Pressure CO2 20.4 mmHg (35.0-45.0) *L Arterial Blood Partial Pressure O2 82.0 mmHg (75.0-100.0) Arterial Blood HCO3 14.7 mmol/L (22.0-26.0) *L Arterial Blood Oxygen Saturation 95.1 % (95-100) Arterial Blood Base Excess -7.5 (-2-2) L Jonathan Test Positive Current Medications Medications (Trade) Dose Ordered Sig/Katy Route PRN Reason Start Time Stop Time Status Last Admin Dose Admin Acetaminophen (Tylenol) 650 mg Q4H PRN GT FEVER 06/03/20 11:45 07/03/20 11:44 06/06/20 23:15 Ascorbic Acid (Vitamin C) 250 mg DAILY GT 06/11/20 09:00 07/11/20 08:59 06/12/20 08:24 Chlorhexidine Gluconate (Alla-Hex 2%) 1 applic DAILY@2000 TOPIC 06/08/20 20:00 09/06/20 19:59 06/11/20 20:11 Clotrimazole (Lotrimin) 1 applic Q12HR TOPIC 06/07/20 13:00 09/05/20 12:59 06/12/20 08:42 Daptomycin 350 mg/ Sodium Chloride 55 ml @ 100 mls/hr Q48H IV 06/05/20 11:00 06/13/20 10:59 06/11/20 11:25 Dextrose (Dextrose 50%) 25 ml Q30M PRN IV Hypoglycemia 06/03/20 11:30 08/28/20 11:29 Dextrose (Dextrose 50%) 50 ml Q30M PRN IV Hypoglycemia 06/03/20 11:30 08/28/20 11:29 Dopamine HCl/ Dextrose 250 ml @ 0 mls/hr Q24H IV 06/12/20 11:15 09/10/20 11:14 06/12/20 11:19 Hydrocortisone (Solu-CORTEF) 100 mg EVERY 8 HOURS IV 06/07/20 14:00 09/05/20 13:59 06/12/20 13:30 Levothyroxine Sodium (Synthroid) 75 mcg DAILY GT 06/04/20 09:00 06/30/20 08:59 06/12/20 08:24 Meropenem 1 gm/ Sodium Chloride 55 ml @ 110 mls/hr Q12H IVPB 06/03/20 16:00 06/13/20 15:59 06/12/20 04:12 Midodrine (Pro-Amatine) 10 mg Q8HR GT 06/05/20 14:00 09/03/20 13:59 06/12/20 05:19 Norepinephrine Bitartrate 16 mg/ Dextrose 500 ml @ 0 mls/hr Q24H IV 06/08/20 07:45 07/07/20 12:59 06/12/20 08:43 Ondansetron HCl (Zofran) 4 mg Q6H PRN IVP Nausea & Vomiting 06/03/20 12:00 06/29/20 11:59 Pantoprazole (Protonix) 40 mg DAILY IV 06/04/20 09:00 06/30/20 08:59 06/12/20 08:24 Phenylephrine HCl 50 mg/Dextrose 250 ml @ 0 mls/hr Q24H PRN IV For hypotension 06/06/20 17:45 07/06/20 17:44 06/08/20 01:49 Polyethylene Glycol (Miralax) 17 gm DAILYPRN PRN GT Constipation 06/03/20 12:00 06/29/20 11:59 Valproic Acid (Depakene) 500 mg EVERY 8 HOURS GT 06/03/20 14:00 06/29/20 21:59 06/12/20 13:30 Suki Camejo M.D. Jun 12, 2020 14:02
--- NOTE | 2020-06-12 14:11 | NUR ---
NURSE NOTES: Patient turned and repositioned, no significant change. Continue titrate Dopamine as tolerated. Tolerate well feeding.Call light within easy reach.
--- NOTE | 2020-06-12 15:04 | NUR ---
NURSE NOTES: Patient seen by Dr Hawk, order to give 1 dose of Lasix 20mg, order noted and carry out
--- NOTE | 2020-06-12 16:40 | NUR ---
NURSE NOTES: ADLs done, mouth care performed,patient suctioned as tolerated.No significant change at this time.Feeding increase to 40cc/hr and tolerate well.Turned and repositioned.HOB elevated to prevent aspiration.Call light within easy reach.Kept clean dry and comfortable.Will continue same care plan
--- NOTE | 2020-06-12 16:45 | Diagnostic Imaging Report ---
Indication: Shortness of breath Technique: One view of the chest Comparison: 06/11/2020 Findings: Patient is rotated to the left. Right-sided pleural effusion appears slightly improved. Left-sided pleural effusion likewise appears somewhat improved. Bilateral interstitial and airspace edema appear unchanged. Stable satisfactory position of endotracheal tube Impression: Apparent improvement in bilateral pleural effusions, over one day Stable bilateral parenchymal disease
[2020-06-12] MEDS ORDERED: LORazepam Inj 2mg/ml 1ml IV PRN (17:30)
--- NOTE | 2020-06-12 17:43 | NUR ---
NURSE NOTES: Patient noted with episode of fighting the vent and RR 44, Dr Allred made aware with new order Ativan 2mg IV Q2hrs PRN. One dose given will continue close monitoring
--- NOTE | 2020-06-12 18:21 | NUR ---
NURSE NOTES: ADLs done,turned and repositioned. Mouth care performed. Anxiety has slightly decreased, RR 28 after Ativan.Will continue close monitoring.Call light within easy reach.
[2020-06-12] MEDS ORDERED: Tubing IV Secondary IV ONE (18:42)
--- NOTE | 2020-06-12 19:00 | NUR ---
NURSE NOTES: Received patient and report from TAI Weston. Patient is observed resting in bed and noted to be lethargic but responsive to stimuli; withdraws to pain, opens eyes spontaneously, MARTY and not noted to track at this time. Pt is currently unable to follow commands. No pain noted upon assessment. Pt is currently orally intubated ett size 7.5 noted to be 22 @ lip. Vent settings as follows: AC 30 TV 500 FiO2 100% PEEP 10 with an O2 saturation of 97% noted at this time. Pt noted to be tachypneic with increased WOB. RT present at bedside to assist with pt care, mucous plug noted and tubing changed as indicated. Bilateral lower lobe breath sounds noted to be diminished upon auscultation and rhonchi noted in bilateral upper and lower lobes. Pt noted to be SR on tele monitor with a HR of 61 with no s/sx of acute cardiac distress noted. Dr Pantoja present at bedside to assess patient. Left upper arm PICC line noted which remains asymptomatic, intact and patent. Central line dressing remains clean ,dry and intact. Dopamine currently infusing at 4mch/kg/min. No s/sx of adverse effects noted at this time from medication administration. G tube noted which remains intact and patent. Jevity 1.2 currently paused due to respiratory condition; no residual noted. Hypoactive bowel sounds noted in all four quadrants, abdomen remains large, soft and round. Diagnostics reviewed at bedside. Skin alterations noted. Pt repositioned for comfort and safety. Fall, Aspiration, Seizure and Skin precautions observed. Pt remains resting in bed; Bed remains in the lowest position with the safety wheels engaged, call light within reach, side rails up x3 and bed alarm activated. Will continue plan of care. Will continue to monitor.
--- NOTE | 2020-06-12 19:03 | NUR ---
HAND-OFF: Report given to TAI Renee.Patient seen by Dr Gamez endorsed to next nurse to follow up with new orders.Patient seen by Dr Gamez,endorsed to next nurse for follow up.
--- NOTE | 2020-06-12 19:05 | Cardiology Progress Note ---
Assessment/Plan Assessment/Plan sepsis respiratory failure ards renal insuf bacteremia abn cardiac enzyme due to demand sinsu rafael thrombocytopenia covid isolation removed as covid -x3 min trop abn ekg lat one form 05/30 reviewed non ischemic echo preformed 06/02 nl lv function pressor vent support abx tele sinus now sinus rafael imrpoved on DA ekg persoanlly reviewed tele personally reviewed no pauses wbc improved renal insuf min better 3rd spacing but bp now allwo effective diureisis yet Subjective ROS Limited/Unobtainable: Yes Subjective on [place] not communicative Objective Last 24 Hour Vital Signs Date Time Temp Pulse Resp B/P (MAP) Pulse Ox O2 Delivery O2 Flow Rate FiO2 06/12/20 18:30 73 33 101/37 (58) 100 06/12/20 18:07 70 28 85/36 99 06/12/20 18:00 77 33 88/36 (53) 92 06/12/20 18:00 85/36 06/12/20 17:37 81 51 100 06/12/20 17:37 80 44 95/56 06/12/20 17:30 72 40 94/56 (69) 99 06/12/20 17:17 69 37 80 06/12/20 17:00 67 22 108/81 (90) 97 06/12/20 17:00 108/81 06/12/20 16:30 60 30 108/46 (66) 94 06/12/20 16:00 Mechanical Ventilator Mechanical Ventilator 06/12/20 16:00 80 06/12/20 16:00 64 06/12/20 16:00 108/46 06/12/20 16:00 98.0 55 30 108/54 (72) 94 06/12/20 15:45 53 30 134/80 (98) 97 06/12/20 15:30 58 29 145/54 (84) 94 06/12/20 15:24 52 30 80 06/12/20 15:15 53 30 109/62 (78) 95 06/12/20 15:00 128/57 06/12/20 15:00 55 29 128/57 (80) 96 06/12/20 14:45 52 30 113/53 (73) 97 06/12/20 14:30 55 30 119/53 (75) 95 06/12/20 14:15 55 30 112/49 (70) 94 06/12/20 14:00 113/53 06/12/20 14:00 60 29 123/52 (75) 93 06/12/20 13:45 59 29 127/52 (77) 94 06/12/20 13:30 52 30 112/55 (74) 96 06/12/20 13:15 58 29 119/50 (73) 95 06/12/20 13:00 58 29 154/56 (88) 95 06/12/20 13:00 154/58 06/12/20 12:51 53 30 80 06/12/20 12:45 53 30 122/50 (74) 96 06/12/20 12:30 53 30 123/54 (77) 95 06/12/20 12:15 55 30 126/57 (80) 95 06/12/20 12:00 98.6 57 30 123/48 (73) 96 06/12/20 12:00 Mechanical Ventilator Mechanical Ventilator 06/12/20 12:00 100 06/12/20 12:00 61 06/12/20 12:00 128/57 06/12/20 11:45 78 28 151/74 (99) 95 06/12/20 11:30 57 28 111/74 (86) 99 06/12/20 11:26 66 30 80 06/12/20 11:19 100/46 06/12/20 11:15 49 30 100/46 (64) 99 06/12/20 11:00 50 30 113/52 (72) 100 06/12/20 10:45 54 30 98/50 (66) 100 06/12/20 10:30 58 29 109/53 (71) 99 06/12/20 10:15 55 30 108/52 (70) 100 06/12/20 10:00 98/50 06/12/20 10:00 57 27 96/50 (65) 99 06/12/20 09:45 61 29 107/68 (81) 99 06/12/20 09:30 55 27 126/57 (80) 97 06/12/20 09:15 53 30 111/51 (71) 100 06/12/20 09:00 59 28 109/53 (71) 100 06/12/20 09:00 107/68 06/12/20 08:57 54 30 80 06/12/20 08:45 61 25 116/47 (70) 99 06/12/20 08:43 135/58 06/12/20 08:30 53 30 135/58 (83) 99 06/12/20 08:15 98.4 53 30 140/65 (90) 99 06/12/20 08:00 51 06/12/20 08:00 Mechanical Ventilator Mechanical Ventilator 06/12/20 08:00 53 29 122/62 (82) 99 06/12/20 08:00 100 06/12/20 07:45 140/78 06/12/20 07:30 60 24 108/51 (70) 98 06/12/20 07:29 58 30 80 06/12/20 07:00 108/71 06/12/20 07:00 53 30 108/51 (70) 100 06/12/20 06:30 54 30 113/52 (72) 99 06/12/20 06:15 55 30 121/48 (72) 99 06/12/20 06:00 122/57 06/12/20 06:00 56 30 122/57 (78) 99 06/12/20 05:47 62 30 72/47 (55) 99 06/12/20 05:45 72/47 06/12/20 05:30 61 26 109/44 (65) 99 06/12/20 05:30 109/44 06/12/20 05:05 70 30 80 06/12/20 05:00 112/59 06/12/20 05:00 60 25 112/59 (76) 99 06/12/20 04:30 62 28 103/58 (73) 99 06/12/20 04:00 98.1 56 29 105/57 (73) 99 06/12/20 04:00 105/57 06/12/20 04:00 100 06/12/20 04:00 Mechanical Ventilator Mechanical Ventilator 06/12/20 03:30 59 29 102/53 (69) 100 06/12/20 03:14 68 32 80 06/12/20 03:11 61 06/12/20 03:00 63 25 92/53 (66) 99 06/12/20 03:00 92/53 06/12/20 02:30 59 28 102/56 (71) 99 06/12/20 02:00 72 30 125/73 (90) 98 06/12/20 02:00 125/73 06/12/20 01:30 61 27 115/60 (78) 97 06/12/20 01:00 102/69 06/12/20 01:00 59 27 102/69 (80) 99 06/12/20 00:56 63 30 80 06/12/20 00:30 54 30 103/58 (73) 99 06/12/20 00:00 100 06/12/20 00:00 98.2 55 30 111/49 (69) 98 06/12/20 00:00 Mechanical Ventilator Mechanical Ventilator 06/12/20 00:00 111/49 06/11/20 23:30 57 30 108/54 (72) 99 06/11/20 23:17 67 06/11/20 23:00 102/49 06/11/20 23:00 64 27 102/49 (66) 100 06/11/20 22:54 65 30 80 06/11/20 22:30 59 28 109/55 (73) 100 06/11/20 22:00 59 25 108/52 (70) 100 06/11/20 22:00 108/52 06/11/20 21:45 61 27 103/50 (67) 99 06/11/20 21:30 55 30 102/55 (71) 100 06/11/20 21:15 63 28 97/47 (64) 99 06/11/20 21:00 100/55 06/11/20 21:00 61 27 100/55 (70) 99 06/11/20 20:57 68 30 80 06/11/20 20:45 58 26 101/51 (68) 100 06/11/20 20:30 66 23 94/53 (67) 99 06/11/20 20:25 118/57 06/11/20 20:00 100 06/11/20 20:00 133/65 06/11/20 20:00 Mechanical Ventilator Mechanical Ventilator 06/11/20 20:00 98.2 54 30 133/55 (81) 100 06/11/20 19:33 60 06/11/20 19:30 58 27 113/76 (88) 100 06/11/20 19:14 60 30 80 General Appearance: no apparent distress, on vent, patient on isolation Cardiovascular: normal rate Respiratory/Chest: rhonchi - bilaterally Abdomen: normal bowel sounds, non tender, soft Extremities: moderate edema Intake and Output 06/11/20 06/12/20 19:00 07:00 Intake Total 97.5 ml 1044.3725 ml Output Total 175 ml 550 ml Balance -77.5 ml 494.3725 ml Free Water 120 ml IV Total 57.5 ml 674.3725 ml Tube Feeding 40 ml 250 ml Output Urine Total 175 ml 550 ml Laboratory Tests Test 06/12/20 04:20 06/12/20 07:30 White Blood Count 9.1 K/UL (4.8-10.8) Red Blood Count 2.44 M/UL (4.20-5.40) L Hemoglobin 8.3 G/DL (12.0-16.0) L Hematocrit 24.6 % (37.0-47.0) L Mean Corpuscular Volume 101 FL (80-99) H Mean Corpuscular Hemoglobin 33.9 PG (27.0-31.0) H Mean Corpuscular Hemoglobin Concent 33.7 G/DL (32.0-36.0) Red Cell Distribution Width 12.7 % (11.6-14.8) Platelet Count 53 K/UL (150-450) L Mean Platelet Volume 8.9 FL (6.5-10.1) Neutrophils (%) (Auto) % (45.0-75.0) Lymphocytes (%) (Auto) % (20.0-45.0) Monocytes (%) (Auto) % (1.0-10.0) Eosinophils (%) (Auto) % (0.0-3.0) Basophils (%) (Auto) % (0.0-2.0) Sodium Level 147 MMOL/L (136-145) H Potassium Level 3.5 MMOL/L (3.5-5.1) Chloride Level 116 MMOL/L (98-107) H Carbon Dioxide Level 18 MMOL/L (21-32) L Anion Gap 13 mmol/L (5-15) Blood Urea Nitrogen 43 mg/dL (7-18) H Creatinine 1.6 MG/DL (0.55-1.30) H Estimat Glomerular Filtration Rate 33.1 mL/min (>60) Glucose Level 99 MG/DL (74-106) Calcium Level 8.4 MG/DL (8.5-10.1) L Phosphorus Level 3.2 MG/DL (2.5-4.9) Magnesium Level 2.2 MG/DL (1.8-2.4) Total Bilirubin 0.5 MG/DL (0.2-1.0) Aspartate Amino Transf (AST/SGOT) 28 U/L (15-37) Alanine Aminotransferase (ALT/SGPT) 14 U/L (12-78) Alkaline Phosphatase 48 U/L (46-116) Total Protein 4.4 G/DL (6.4-8.2) L Albumin 1.4 G/DL (3.4-5.0) L Globulin 3.0 g/dL Albumin/Globulin Ratio 0.5 (1.0-2.7) L Cryptococcus Antigen Pending Arterial Blood pH 7.477 (7.350-7.450) Arterial Blood Partial Pressure CO2 20.4 mmHg (35.0-45.0) *L Arterial Blood Partial Pressure O2 82.0 mmHg (75.0-100.0) Arterial Blood HCO3 14.7 mmol/L (22.0-26.0) *L Arterial Blood Oxygen Saturation 95.1 % (95-100) Arterial Blood Base Excess -7.5 (-2-2) L Jonathan Test Positive Josue Pantoja MD Jun 12, 2020 19:05
--- NOTE | 2020-06-12 19:23 | NUR ---
RESPIRATORY NOTES: Received pt on vent settings 30/ 500/ 100%/ +10. pt is 7.5/ 22 at the lips secured by anchor fast.. pt saturation 100% on 100 Fio2. pt was tachy breathing 40's- 50's, fighting the vent. Rn aware. sx small amount of clear secretions. alarms are on and audible, vent plugged into red outlet, bmv at bedside. will continue to monitor throughout the night.
[2020-06-12] MEDS: Dyna-Hex 2% Top Sol 2oz TOPIC SCH (20:33)
--- NOTE | 2020-06-12 21:00 | NUR ---
NURSE NOTES: Bedside assessment performed, assessed pt with a FLACC scale of 0 noted. VS obtained and remain stable at this time. Dopamine continues to infuse at 4 mcg/kg/min with no adverse effects noted. Will continue to monitor and titrate accordingly. Respiratory status now stable, decrease in WOB and RR of 30, consistent with vent settings, noted. Enteral support reinitiated, will increase rate towards goal as pt condition allows. Pt remains clean and dry. Pt repositioned for safety and comfort. Fall, Aspiration, Seizure and Skin precautions observed. Pt remains resting in bed; Bed remains in the lowest position with the safety wheels engaged, call light within reach, side rails up x3 and bed alarm activated. Will continue plan of care. Will continue to monitor.
--- NOTE | 2020-06-12 21:20 | NUR ---
NURSE NOTES: Elected to hold Midodrine due to current pt BP/HR and potential for changing rate on Dopamine. Pill already crushed, disposed of per protocol with cuprous chloride operator.
--- NOTE | 2020-06-12 21:35 | Internal Med Progress Note ---
Subjective Physician Name Guillaume Hawk Attending Physician Elayne Allred MD Current Medications Medications (Trade) Dose Ordered Sig/Katy Route PRN Reason Start Time Stop Time Status Last Admin Dose Admin Acetaminophen (Tylenol) 650 mg Q4H PRN GT FEVER 06/03/20 11:45 07/03/20 11:44 06/06/20 23:15 Ascorbic Acid (Vitamin C) 250 mg DAILY GT 06/11/20 09:00 07/11/20 08:59 06/12/20 08:24 Chlorhexidine Gluconate (Alla-Hex 2%) 1 applic DAILY@1999 TOPIC 06/08/20 20:00 09/06/20 19:59 06/12/20 20:33 Clotrimazole (Lotrimin) 1 applic Q12HR TOPIC 06/07/20 13:00 09/05/20 12:59 06/12/20 21:18 Daptomycin 350 mg/ Sodium Chloride 55 ml @ 100 mls/hr Q48H IV 06/05/20 11:00 06/13/20 10:59 06/11/20 11:25 Dextrose (Dextrose 50%) 25 ml Q30M PRN IV Hypoglycemia 06/03/20 11:30 08/28/20 11:29 Dextrose (Dextrose 50%) 50 ml Q30M PRN IV Hypoglycemia 06/03/20 11:30 08/28/20 11:29 Dopamine HCl/ Dextrose 250 ml @ 0 mls/hr Q24H IV 06/12/20 11:15 09/10/20 11:14 06/12/20 11:19 Hydrocortisone (Solu-CORTEF) 100 mg EVERY 8 HOURS IV 06/07/20 14:00 09/05/20 13:59 06/12/20 21:19 Levothyroxine Sodium (Synthroid) 75 mcg DAILY GT 06/04/20 09:00 06/30/20 08:59 06/12/20 08:24 Lorazepam (Ativan 2mg/ml 1ml) 2 mg Q2H PRN IV For Anxiety 06/12/20 17:30 06/19/20 17:29 06/12/20 17:37 Meropenem 1 gm/ Sodium Chloride 55 ml @ 110 mls/hr Q12H IVPB 06/03/20 16:00 06/18/20 15:59 06/12/20 15:28 Midodrine (Pro-Amatine) 10 mg Q8HR GT 06/05/20 14:00 09/03/20 13:59 06/12/20 05:19 Norepinephrine Bitartrate 16 mg/ Dextrose 500 ml @ 0 mls/hr Q24H IV 06/08/20 07:45 07/07/20 12:59 06/12/20 08:43 Ondansetron HCl (Zofran) 4 mg Q6H PRN IVP Nausea & Vomiting 06/03/20 12:00 06/29/20 11:59 Pantoprazole (Protonix) 40 mg DAILY IV 06/04/20 09:00 06/30/20 08:59 06/12/20 08:24 Phenylephrine HCl 50 mg/Dextrose 250 ml @ 0 mls/hr Q24H PRN IV For hypotension 06/06/20 17:45 07/06/20 17:44 06/08/20 01:49 Polyethylene Glycol (Miralax) 17 gm DAILYPRN PRN GT Constipation 06/03/20 12:00 06/29/20 11:59 Valproic Acid (Depakene) 500 mg EVERY 8 HOURS GT 06/03/20 14:00 06/29/20 21:59 06/12/20 21:19 Allergies: Coded Allergies: No Known Allergies (Unverified , 10/16/18) Subjective in ICU, remained intubated on the vent, open eyes, unable to follow command. WBC : 9.1. Renal function improving. Objective Last Vital Signs Date Time Temp Pulse Resp B/P (MAP) Pulse Ox O2 Delivery O2 Flow Rate FiO2 06/12/20 20:43 50 30 100 06/12/20 20:30 120/57 (78) 100 06/12/20 20:00 Mechanical Ventilator Mechanical Ventilator 06/12/20 16:00 98.0 06/04/20 00:00 15.0 Laboratory Tests Test 06/12/20 04:20 06/12/20 07:30 White Blood Count 9.1 K/UL (4.8-10.8) Red Blood Count 2.44 M/UL (4.20-5.40) L Hemoglobin 8.3 G/DL (12.0-16.0) L Hematocrit 24.6 % (37.0-47.0) L Mean Corpuscular Volume 101 FL (80-99) H Mean Corpuscular Hemoglobin 33.9 PG (27.0-31.0) H Mean Corpuscular Hemoglobin Concent 33.7 G/DL (32.0-36.0) Red Cell Distribution Width 12.7 % (11.6-14.8) Platelet Count 53 K/UL (150-450) L Mean Platelet Volume 8.9 FL (6.5-10.1) Neutrophils (%) (Auto) % (45.0-75.0) Lymphocytes (%) (Auto) % (20.0-45.0) Monocytes (%) (Auto) % (1.0-10.0) Eosinophils (%) (Auto) % (0.0-3.0) Basophils (%) (Auto) % (0.0-2.0) Sodium Level 147 MMOL/L (136-145) H Potassium Level 3.5 MMOL/L (3.5-5.1) Chloride Level 116 MMOL/L (98-107) H Carbon Dioxide Level 18 MMOL/L (21-32) L Anion Gap 13 mmol/L (5-15) Blood Urea Nitrogen 43 mg/dL (7-18) H Creatinine 1.6 MG/DL (0.55-1.30) H Estimat Glomerular Filtration Rate 33.1 mL/min (>60) Glucose Level 99 MG/DL (74-106) Calcium Level 8.4 MG/DL (8.5-10.1) L Phosphorus Level 3.2 MG/DL (2.5-4.9) Magnesium Level 2.2 MG/DL (1.8-2.4) Total Bilirubin 0.5 MG/DL (0.2-1.0) Aspartate Amino Transf (AST/SGOT) 28 U/L (15-37) Alanine Aminotransferase (ALT/SGPT) 14 U/L (12-78) Alkaline Phosphatase 48 U/L (46-116) Total Protein 4.4 G/DL (6.4-8.2) L Albumin 1.4 G/DL (3.4-5.0) L Globulin 3.0 g/dL Albumin/Globulin Ratio 0.5 (1.0-2.7) L Cryptococcus Antigen Pending Arterial Blood pH 7.477 (7.350-7.450) Arterial Blood Partial Pressure CO2 20.4 mmHg (35.0-45.0) *L Arterial Blood Partial Pressure O2 82.0 mmHg (75.0-100.0) Arterial Blood HCO3 14.7 mmol/L (22.0-26.0) *L Arterial Blood Oxygen Saturation 95.1 % (95-100) Arterial Blood Base Excess -7.5 (-2-2) L Jonathan Test Positive Intake and Output 06/11/20 06/12/20 19:00 07:00 Intake Total 97.5 ml 1044.3725 ml Output Total 175 ml 550 ml Balance -77.5 ml 494.3725 ml Free Water 120 ml IV Total 57.5 ml 674.3725 ml Tube Feeding 40 ml 250 ml Output Urine Total 175 ml 550 ml Objective General: remain intubated, unable to follow command, open eyes. HEENT: NCAT, sclera anicteric, PERRL, ET Tube. Neck: Supple, no significant jugular venous distention, Lungs: mechanical breath sounds decreased air at the bases, no Wheeze or Rales. Heart: Regular rate and rhythm, normal S1/S2, no murmurs/gallops Abdomen: soft, not tender, not distended. + bowel sounds, Morbid Obesity, PEG site intact. Extremities: No Cyanosis , clubbing, upper extremities edema. left upper extremity PICC line. Neuro: limited secondary to patient status, unable to follow command, bilateral upper and lower extremities contracted. Assessment/Plan Assessment/Plan Problem List: (1) HCAP (healthcare-associated pneumonia) (2) Sepsis (3) Down's syndrome (4) Dysphagia S/P PEG (5) Seizure disorder (6) Hypothyroidism (7) Acute Hypoxemic respiratory failure (8) Persistent, high grade bacteremia- r/o endocarditis (9) LEANN Plan: Tolerated tube feeding @ 30 cc/hr Follow-up with laboratory and cultures on Levophed drip and dopamine drip. Hydrocortisone 100 mg IV every 8 Cont Daptomycin #11(abx d #14/14) for GPC bacteremia in view of LEANN. Cont Meropenem#10/10-14 (abx d #14) given resp decompensation chest x-ray: Improving. Lasix 20 mg IV 1 dose Guillaume Hawk MD Jun 12, 2020 21:35
--- NOTE | 2020-06-12 23:00 | NUR ---
NURSE NOTES: Pt provided with a CHG bed bath, oral care and linen change. ROM exercises performed per pt tolerance. Pt tolerated care well. Bedside assessment performed, assessed pt with a FLACC scale of 0 noted. VS obtained and remain stable at this time. Dopamine continues to infuse at 2 mcg/kg/min with no adverse effects noted from medication administration. Decreased Dopamine from 4mcg/kg/min r/t increasing SBP with static HR. VS obtained and SBP remains >100 and HR remains >50 at this time. Respiratory status remains stable, RR remains between 30-32 consistent with ventilator settings. WOB notably decreased from start of shift. Pt remains clean and dry. Pt repositioned for comfort and safety. Fall, Aspiration, Seizure and Skin precautions observed. Pt remains resting in bed; Bed remains in the lowest position with the safety wheels engaged, call light within reach, side rails up x3 and bed alarm activated. Will continue plan of care. Will continue to monitor.
[2020-06-13] VITALS (48 sets, daily range): BP systolic 84–119; BP diastolic 38–60
--- NOTE | 2020-06-13 01:00 | NUR ---
NURSE NOTES: Pt provided with a partial bed bath, oral care and wound care per orders. Moderate, brown liquid stool noted. ROM exercises performed per pt tolerance. Pt tolerated care well. Bedside assessment performed, assessed pt with a FLACC scale of 0 noted. VS obtained and remain stable at this time. Dopamine continues to infuse at 2 mcg/kg/min with no adverse effects noted from medication administration. VS obtained and SBP remains >100 and HR remains >50 at this time. Respiratory status remains stable, RR remains between 30-31 consistent with ventilator settings. WOB remains notably decreased from start of shift. Pt remains clean and dry. Pt repositioned for comfort and safety. Bilateral upper and lower extremities elevated, dependent edema noted. Fall, Aspiration, Seizure and Skin precautions observed. Pt remains resting in bed; Bed remains in the lowest position with the safety wheels engaged, call light within reach, side rails up x3 and bed alarm activated. Will continue plan of care. Will continue to monitor.
[2020-06-13] MEDS: Meropenem 1 GM in NS 55 ML IVPB SCH ×2 (03:00→16:18)
--- NOTE | 2020-06-13 03:00 | NUR ---
NURSE NOTES: Bedside assessment performed, assessed pt with a FLACC scale of 0 noted. VS obtained and remain stable at this time. Dopamine continues to infuse at 2 mcg/kg/min with no adverse effects noted from medication administration. VS obtained remain consistent and stable at this time.. Respiratory status remains stable, RR remains at 30 consistent with ventilator settings. Pt remains clean and dry. Pt repositioned for comfort and safety. Bilateral upper and lower extremities elevated, dependent edema noted. Pt noted to be tolerating GT feeding well, minimal residual 0-10mL noted for duration of shift. Fall, Aspiration, Seizure and Skin precautions observed. Pt remains resting in bed; Bed remains in the lowest position with the safety wheels engaged, call light within reach, side rails up x3 and bed alarm activated. Will continue plan of care. Will continue to monitor.
[2020-06-13 04:28] LABS: HEMATOCRIT 25.9 % (37.0-47.0); HEMOGLOBIN 8.9 G/DL (12.0-16.0); MEAN CORPUSCULAR VOLUME 99 FL (80-99); PLATELET COUNT 57 K/UL (150-450); RED BLOOD COUNT 2.61 M/UL (4.20-5.40); RED CELL DISTRIBUTION WIDTH 13.6 % (11.6-14.8); WHITE BLOOD COUNT 11.3 K/UL (4.8-10.8)
--- NOTE | 2020-06-13 05:00 | NUR ---
NURSE NOTES: Bedside assessment performed, assessed pt with a FLACC scale of 0 noted. VS obtained and remain stable at this time. Dopamine continues to infuse at 2 mcg/kg/min with no adverse effects noted from medication administration. VS obtained remain consistent and stable at this time. Respiratory status remains stable, RR remains at 30 consistent with ventilator settings. Thick, yellow secretions noted while suctioning. Pt remains clean and dry. Pt repositioned for comfort and safety. Pt noted to be tolerating GT feeding well, minimal residual 0mL noted at this time, increased GT feeding rate to 50mL, goal met. Will consult with nutrition in order to obtain [place] as prescribed. Fall, Aspiration, Seizure and Skin precautions observed. Pt remains resting in bed; Bed remains in the lowest position with the safety wheels engaged, call light within reach, side rails up x3 and bed alarm activated. Will continue plan of care. Will continue to monitor.
[2020-06-13] MEDS: Hydrocortisone 100mg Inj IV SCH ×3 (05:01→21:02)
[2020-06-13] MEDS: Midodrine 10mg tab GT SCH ×3 (05:01→21:02)
[2020-06-13] MEDS: Valproic Acid 250mg/5ml Liquid GT SCH ×3 (05:01→21:02)
[2020-06-13 05:11] LABS: ALBUMIN 1.5 G/DL (3.4-5.0); ALBUMIN/GLOBULIN RATIO 0.4 (1.0-2.7); ALKALINE PHOSPHATASE 53 U/L (46-116); ANION GAP 13 mmol/L (5-15); ASPARTATE AMINO TRANSFERASE 21 U/L (15-37); BLOOD UREA NITROGEN 49 mg/dL (7-18); CALCIUM 8.3 MG/DL (8.5-10.1); CARBON DIOXIDE 19 MMOL/L (21-32); CHLORIDE 115 MMOL/L (98-107); CREATININE 1.6 MG/DL (0.55-1.30); SODIUM 148 MMOL/L (136-145)
[2020-06-13 05:13] LABS: POTASSIUM 2.7 MMOL/L (3.5-5.1)
[2020-06-13 05:39] LABS: ALANINE AMINOTRANSFERASE 16 U/L (12-78); PHOSPHORUS 3.3 MG/DL (2.5-4.9)
--- NOTE | 2020-06-13 06:40 | NUR ---
NURSE NOTES: Left message for physician to report abnormal lab values including k Will await a call back and continue to monitor.
--- NOTE | 2020-06-13 07:11 | NUR ---
NURSE HAND-OFF REPORT: Latest Vital Signs: Temperature 97.6 , Pulse 52 , B/P 111 /49 , Respiratory Rate 30 , O2 SAT 100 , Mechanical Ventilator, O2 Flow Rate 15.0 . Vital Sign Comment: VS remain stable; improvement in RR and WOB, titrated Dopamine infusion to 2mcg/kg/min without incident EKG Rhythm: Sinus Bradycardia Rhythm change?: N MD Notified?: - MD Response: N/A Latest Osorio Fall Score: 50 Fall Risk: High Risk Safety Measures: Call light Within Reach, Bed Alarm Zone 2, Side Rails Side Rails x3, Bed position Low and Locked. Fall Precautions: Door Sign Patient Fall Education Report given to TAI Pereira. Endorsed plan of care and pending call regarding abnormal lab values.
--- NOTE | 2020-06-13 07:12 | NUR ---
NURSE NOTES: Received patient from Nevin LUJAN. Patient is obtunded, Sinus Bradycardia on the heart monitor, HR 51. Receiving oxygen via ET Tube 7.5 23cm at the lip line, vent settings: AC 30, TV 500, FiO2 100%, PEEP 10. Left Upper Arm PICC is intact and receiving Dopamine at 2mcg/kg/min. G-tube is intact and receiving Jevity @50cc/hr. Gregorio catheter is intact and draining. Bed is locked placed in lowest position, side rails up x3, bed alarm on, head of bed elevated. Will continue to monitor. Addendum: 06/13/20 at 0804 by Dalton Johnston RN NURSE NOTES: Received patient from Nevin LUJAN. Patient is obtunded, Sinus Bradycardia on the heart monitor, HR 51. Receiving oxygen via ET Tube 7.5 22cm at the lip line, vent settings: AC 30, TV 500, FiO2 100%, PEEP 10. Left Upper Arm PICC is intact and receiving Dopamine at 2mcg/kg/min. G-tube is intact and receiving Jevity @50cc/hr. Gregorio catheter is intact and draining. Bed is locked placed in lowest position, side rails up x3, bed alarm on, head of bed elevated. Will continue to monitor.
--- NOTE | 2020-06-13 08:27 | Pulmonolgy Critical Care Note ---
Critical Care - Asmt/Plan Problems: (1) Acute respiratory failure (2) Bacteremia (3) Pneumonia (4) Sepsis (5) HCAP (healthcare-associated pneumonia) (6) Seizure disorder (7) Down's syndrome Respiratory: monitor respiratory rate, adjust FIO2, CXR Cardiac: continue pressors, continue to monitor HR/BP Renal: F/U I&O, keep IV fluid, check electrolytes Infectious Disease: check cultures, continue antibiotics Gastrointestinal: continue feedings/current rate Endocrine: monitor blood sugar, continue sliding scale insulin Hematologic: monitor H/H, transfuse if hgb<8.5 Neurologic: PRN Ativan, keep patient comfortable Affect: PRN ativan Time Spent (Minutes): 40 Notes 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: 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, 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, 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 with: nurses, consultants, catalytic case operatorhardware manager - Objective Last 24 Hour Vital Signs Date Time Temp Pulse Resp B/P (MAP) Pulse Ox O2 Delivery O2 Flow Rate FiO2 06/13/20 08:00 97.5 65 29 106/51 (69) 99 06/13/20 08:00 100 06/13/20 08:00 Mechanical Ventilator Mechanical Ventilator 06/13/20 07:30 51 30 100 06/13/20 07:30 76 26 101/48 (65) 97 06/13/20 07:00 52 30 101/51 (68) 100 06/13/20 07:00 101/51 06/13/20 06:30 52 30 111/49 (69) 100 06/13/20 06:00 52 30 100/50 (67) 100 06/13/20 06:00 100/50 06/13/20 05:30 52 30 107/50 (69) 100 06/13/20 05:01 53 30 100 06/13/20 05:00 50 29 104/51 (68) 100 06/13/20 05:00 104/51 06/13/20 04:30 50 30 108/54 (72) 100 06/13/20 04:00 Mechanical Ventilator Mechanical Ventilator 06/13/20 04:00 97.6 50 30 108/54 (72) 100 06/13/20 04:00 108/54 06/13/20 04:00 100 06/13/20 03:30 50 30 113/54 (73) 100 06/13/20 03:24 53 06/13/20 03:08 52 30 100 06/13/20 03:00 109/53 06/13/20 03:00 51 30 109/53 (71) 100 06/13/20 02:30 51 30 103/50 (67) 100 06/13/20 02:00 107/50 06/13/20 02:00 52 30 107/50 (69) 100 06/13/20 01:30 51 30 113/57 (75) 100 06/13/20 01:00 51 30 100 06/13/20 01:00 51 30 113/55 (74) 100 06/13/20 01:00 113/55 06/13/20 00:30 51 29 110/56 (74) 100 06/13/20 00:00 100 06/13/20 00:00 114/58 06/13/20 00:00 97.4 52 30 114/58 (76) 100 06/13/20 00:00 Mechanical Ventilator Mechanical Ventilator 06/12/20 23:45 51 30 112/56 (74) 100 06/12/20 23:30 51 30 108/55 (72) 100 06/12/20 23:17 51 06/12/20 23:15 51 30 108/52 (70) 100 06/12/20 23:08 55 30 100 06/12/20 23:00 52 30 105/55 (72) 100 06/12/20 23:00 105/55 06/12/20 22:45 52 30 109/56 (73) 100 06/12/20 22:30 51 29 98/55 (69) 100 06/12/20 22:15 154/60 06/12/20 22:00 51 29 135/64 (87) 100 06/12/20 22:00 135/64 06/12/20 21:30 49 30 136/63 (87) 100 06/12/20 21:00 115/55 06/12/20 21:00 52 29 115/55 (75) 100 06/12/20 20:43 50 30 100 06/12/20 20:30 51 30 120/57 (78) 100 06/12/20 20:00 117/59 06/12/20 20:00 55 30 117/59 (78) 100 06/12/20 20:00 Mechanical Ventilator Mechanical Ventilator 06/12/20 20:00 100 06/12/20 19:39 64 06/12/20 19:32 71 21 89/46 (60) 100 06/12/20 19:06 95 42 100 06/12/20 19:00 84 35 94/44 (61) 100 06/12/20 19:00 94/44 06/12/20 18:30 73 33 101/37 (58) 100 06/12/20 18:07 70 28 85/36 99 06/12/20 18:00 77 33 88/36 (53) 92 06/12/20 18:00 85/36 06/12/20 17:37 81 51 100 06/12/20 17:37 80 44 95/56 06/12/20 17:30 72 40 94/56 (69) 99 06/12/20 17:17 69 37 80 06/12/20 17:00 67 22 108/81 (90) 97 06/12/20 17:00 108/81 06/12/20 16:30 60 30 108/46 (66) 94 06/12/20 16:00 Mechanical Ventilator Mechanical Ventilator 06/12/20 16:00 80 06/12/20 16:00 64 06/12/20 16:00 108/46 06/12/20 16:00 98.0 55 30 108/54 (72) 94 06/12/20 15:45 53 30 134/80 (98) 97 06/12/20 15:30 58 29 145/54 (84) 94 06/12/20 15:24 52 30 80 06/12/20 15:15 53 30 109/62 (78) 95 06/12/20 15:00 128/57 06/12/20 15:00 55 29 128/57 (80) 96 06/12/20 14:45 52 30 113/53 (73) 97 06/12/20 14:30 55 30 119/53 (75) 95 06/12/20 14:15 55 30 112/49 (70) 94 06/12/20 14:00 113/53 06/12/20 14:00 60 29 123/52 (75) 93 06/12/20 13:45 59 29 127/52 (77) 94 06/12/20 13:30 52 30 112/55 (74) 96 06/12/20 13:15 58 29 119/50 (73) 95 06/12/20 13:00 58 29 154/56 (88) 95 06/12/20 13:00 154/58 06/12/20 12:51 53 30 80 06/12/20 12:45 53 30 122/50 (74) 96 06/12/20 12:30 53 30 123/54 (77) 95 06/12/20 12:15 55 30 126/57 (80) 95 06/12/20 12:00 98.6 57 30 123/48 (73) 96 06/12/20 12:00 Mechanical Ventilator Mechanical Ventilator 06/12/20 12:00 100 06/12/20 12:00 61 06/12/20 12:00 128/57 06/12/20 11:45 78 28 151/74 (99) 95 06/12/20 11:30 57 28 111/74 (86) 99 06/12/20 11:26 66 30 80 06/12/20 11:19 100/46 06/12/20 11:15 49 30 100/46 (64) 99 06/12/20 11:00 50 30 113/52 (72) 100 06/12/20 10:45 54 30 98/50 (66) 100 06/12/20 10:30 58 29 109/53 (71) 99 06/12/20 10:15 55 30 108/52 (70) 100 06/12/20 10:00 98/50 06/12/20 10:00 57 27 96/50 (65) 99 06/12/20 09:45 61 29 107/68 (81) 99 06/12/20 09:30 55 27 126/57 (80) 97 06/12/20 09:15 53 30 111/51 (71) 100 06/12/20 09:00 59 28 109/53 (71) 100 06/12/20 09:00 107/68 06/12/20 08:57 54 30 80 06/12/20 08:45 61 25 116/47 (70) 99 06/12/20 08:43 135/58 06/12/20 08:30 53 30 135/58 (83) 99 Status: sedated Condition: critical HEENT: atraumatic, normocephalic Neck: full ROM Heart: HR/BP stable Abdomen: soft, non-tender, feeding tube Extremities: edema Decubiti: stage Accucheck: 131 Critical Care - Subjective ROS Limited/Unobtainable: Yes Condition: critical EKG Rhythm: Sinus Rhythm FI02: 100 Vent Support Breath Rate: 30 Vent Support Mode: AC Vent Tidal Volume: 500 Sputum Amount: Scant PEEP: 10.0 PIP: 56 Tube Feeding Amount: 50 I&O: Intake and Output 06/12/20 06/13/20 19:00 07:00 Intake Total 771.02767 ml 777.34717 ml Output Total 1060 ml 940 ml Balance -288.06953 ml -162.83816 ml Free Water 90 ml 90 ml IV Total 281.17346 ml 177.79796 ml Tube Feeding 400 ml 510 ml Output Urine Total 1060 ml 940 ml # Bowel Movements 1 1 ET-Tube: 7.5 ET Position: 22 Labs: Laboratory Tests Test 06/13/20 04:00 06/13/20 07:30 White Blood Count 11.3 K/UL (4.8-10.8) H Red Blood Count 2.61 M/UL (4.20-5.40) L Hemoglobin 8.9 G/DL (12.0-16.0) L Hematocrit 25.9 % (37.0-47.0) L Mean Corpuscular Volume 99 FL (80-99) Mean Corpuscular Hemoglobin 33.9 PG (27.0-31.0) H Mean Corpuscular Hemoglobin Concent 34.3 G/DL (32.0-36.0) Red Cell Distribution Width 13.6 % (11.6-14.8) Platelet Count 57 K/UL (150-450) L Mean Platelet Volume 7.7 FL (6.5-10.1) Neutrophils (%) (Auto) % (45.0-75.0) Lymphocytes (%) (Auto) % (20.0-45.0) Monocytes (%) (Auto) % (1.0-10.0) Eosinophils (%) (Auto) % (0.0-3.0) Basophils (%) (Auto) % (0.0-2.0) Sodium Level 148 MMOL/L (136-145) H Potassium Level 2.7 MMOL/L (3.5-5.1) *L Chloride Level 115 MMOL/L (98-107) H Carbon Dioxide Level 19 MMOL/L (21-32) L Anion Gap 13 mmol/L (5-15) Blood Urea Nitrogen 49 mg/dL (7-18) H Creatinine 1.6 MG/DL (0.55-1.30) H Estimat Glomerular Filtration Rate 33.1 mL/min (>60) Glucose Level 128 MG/DL (74-106) H Calcium Level 8.3 MG/DL (8.5-10.1) L Phosphorus Level 3.3 MG/DL (2.5-4.9) Magnesium Level 2.2 MG/DL (1.8-2.4) Total Bilirubin 1.0 MG/DL (0.2-1.0) Aspartate Amino Transf (AST/SGOT) 21 U/L (15-37) Alanine Aminotransferase (ALT/SGPT) 16 U/L (12-78) Alkaline Phosphatase 53 U/L (46-116) C-Reactive Protein, Quantitative 2.1 mg/dL (0.00-0.90) H Total Protein 4.9 G/DL (6.4-8.2) L Albumin 1.5 G/DL (3.4-5.0) L Globulin 3.4 g/dL Albumin/Globulin Ratio 0.4 (1.0-2.7) L Thyroid Stimulating Hormone (TSH) 0.332 uiU/mL (0.358-3.740) Valproic Acid (Depakene) Level 28 MCG/ML (50-100) L Arterial Blood pH 7.482 (7.350-7.450) Arterial Blood Partial Pressure CO2 21.8 mmHg (35.0-45.0) *L Arterial Blood Partial Pressure O2 146.5 mmHg (75.0-100.0) H Arterial Blood HCO3 15.9 mmol/L (22.0-26.0) *L Arterial Blood Oxygen Saturation 98.0 % (95-100) Arterial Blood Base Excess -6.3 (-2-2) L Jonathan Test Positive Elayne Allred MD Jun 13, 2020 08:27
[2020-06-13] MEDS: Pantoprazole Inj IV SCH (09:01)
--- NOTE | 2020-06-13 10:00 | Diagnostic Imaging Report ---
EXAM: XR Chest, 1 View CLINICAL HISTORY: DYSPNEA TECHNIQUE: Frontal view of the chest. COMPARISON: Chest radiograph June 12, 2020. FINDINGS/IMPRESSION: Endotracheal tube terminates 1.4 cm above the joseph. Retraction by approximately 2.5 cm recommended. EKG leads overlie the patient. Small bilateral pleural effusions with minor edema. Stable edema with mild worsening in the degree of pleural effusion on the right. Cardiomegaly.
--- NOTE | 2020-06-13 10:29 | NUR ---
NURSE NOTES: Medications given as prescribed, no adverse reaction noted. Provided oral care for patient, turned and repositioned. Will continue to monitor.
--- NOTE | 2020-06-13 10:51 | NUR ---
NURSE NOTES: Patient seen and assessed by Dr. Pitt.
[2020-06-13] MEDS: DOPamine 400mg/250ml 250 ML IV SCH ×2 (11:15→14:00)
--- NOTE | 2020-06-13 11:22 | Nephrology Progress Note ---
Assessment/Plan Problem List: (1) LEANN (acute kidney injury) (2) Respiratory failure requiring intubation (3) Down's syndrome (4) Seizure disorder (5) Hypothyroidism Assessment Acute renal failure, likely due to hypotension Acute respiratory distress, hypoxia Seizure disorder Hypothyroidism Down syndrome Full code Fluid challenge with IV fluids and albumin Midodrine for BP above 100 systolic Check TSH level Check Correct level Monitor renal parameters Urine studies Per orders Plan June 13: Status unchanged. Lab reviewed. Serum potassium 2.7. IV potassium chloride ordered. Serum creatinine low at 1.6 stable. Blood pressure 90s systolic June 12: Status quo. Labs reviewed. Renal parameters stable. Serum creatinine down to 1.6. Medication list reviewed. Continues to be on midodrine. Continue per consultants. June 11: Status quo. Labs reviewed. Electrolytes adjusted. Serum creatinine down to 1.8. Continue per consultants. June 10: Status quo. Labs reviewed. Phosphorus supplement IV given. Serum creatinine 2. Continue per consultants. June 09: Requires less pressors. Albumin bolus given. 1 dose of Lasix IV ordered as the patient severely edematous. Patient serum albumin is very low. Continue per consultants. June 08: Continues to be intubated. Labs reviewed. Serum creatinine 1.9 unchanged. Blood pressure more stable. Off 1 of the pressors. Continue to monitor renal parameters. Continue per consultants. Patient now on hydrocortisone 100 mg every 8 hours. Will decrease IV fluid. Normal saline down to 50 cc an hour. June 07: Intubated. Labs reviewed. Creatinine 1.9 unchanged. Continue same treatment plan. Per consultants. Overall poor prognosis since the patient remains on pressors and her pulmonary status is worsening. June 06: Remains intubated. Labs reviewed. Creatinine 1.9. Blood pressure systolic 90s. Continue per consultants. June 05: Remains intubated. Labs reviewed. Serum creatinine lower to 2. Vancomycin level lower. Remains hypotensive on pressors. Will increase midodrine to 10 mg every 8 hours. Continue per consultants. Continue to monitor renal parameters. June 04: Patient now in ICU. Intubated. On pressors. Labs reviewed. Will increase midodrine. Aim to keep blood pressure over 100 systolic. Will give albumin bolus. Will check vancomycin level which was elevated when checked previously on June 01. Will monitor renal parameters. Continue per consultants. Subjective ROS Limited/Unobtainable: Yes Objective Objective Last 24 Hour Vital Signs Date Time Temp Pulse Resp B/P (MAP) Pulse Ox O2 Delivery O2 Flow Rate FiO2 06/13/20 10:30 54 26 95/48 (64) 100 06/13/20 10:00 99/39 06/13/20 10:00 54 26 99/39 (59) 100 06/13/20 09:30 54 26 95/45 (62) 100 06/13/20 09:00 98/48 06/13/20 09:00 54 30 98/48 (65) 100 06/13/20 08:58 53 26 100 06/13/20 08:30 54 26 98/48 (65) 100 06/13/20 08:00 52 06/13/20 08:00 106/51 06/13/20 08:00 97.5 65 29 106/51 (69) 99 06/13/20 08:00 100 06/13/20 08:00 Mechanical Ventilator Mechanical Ventilator 06/13/20 07:30 51 30 100 06/13/20 07:30 76 26 101/48 (65) 97 06/13/20 07:00 52 30 101/51 (68) 100 06/13/20 07:00 101/51 06/13/20 06:30 52 30 111/49 (69) 100 06/13/20 06:00 52 30 100/50 (67) 100 06/13/20 06:00 100/50 06/13/20 05:30 52 30 107/50 (69) 100 06/13/20 05:01 53 30 100 06/13/20 05:00 50 29 104/51 (68) 100 06/13/20 05:00 104/51 06/13/20 04:30 50 30 108/54 (72) 100 06/13/20 04:00 Mechanical Ventilator Mechanical Ventilator 06/13/20 04:00 97.6 50 30 108/54 (72) 100 06/13/20 04:00 108/54 06/13/20 04:00 100 06/13/20 03:30 50 30 113/54 (73) 100 06/13/20 03:24 53 06/13/20 03:08 52 30 100 06/13/20 03:00 109/53 06/13/20 03:00 51 30 109/53 (71) 100 06/13/20 02:30 51 30 103/50 (67) 100 06/13/20 02:00 107/50 06/13/20 02:00 52 30 107/50 (69) 100 06/13/20 01:30 51 30 113/57 (75) 100 06/13/20 01:00 51 30 100 06/13/20 01:00 51 30 113/55 (74) 100 06/13/20 01:00 113/55 06/13/20 00:30 51 29 110/56 (74) 100 06/13/20 00:00 100 06/13/20 00:00 114/58 06/13/20 00:00 97.4 52 30 114/58 (76) 100 06/13/20 00:00 Mechanical Ventilator Mechanical Ventilator 06/12/20 23:45 51 30 112/56 (74) 100 06/12/20 23:30 51 30 108/55 (72) 100 06/12/20 23:17 51 06/12/20 23:15 51 30 108/52 (70) 100 06/12/20 23:08 55 30 100 06/12/20 23:00 52 30 105/55 (72) 100 06/12/20 23:00 105/55 06/12/20 22:45 52 30 109/56 (73) 100 06/12/20 22:30 51 29 98/55 (69) 100 06/12/20 22:15 154/60 06/12/20 22:00 51 29 135/64 (87) 100 06/12/20 22:00 135/64 06/12/20 21:30 49 30 136/63 (87) 100 06/12/20 21:00 115/55 06/12/20 21:00 52 29 115/55 (75) 100 06/12/20 20:43 50 30 100 06/12/20 20:30 51 30 120/57 (78) 100 06/12/20 20:00 117/59 06/12/20 20:00 55 30 117/59 (78) 100 06/12/20 20:00 Mechanical Ventilator Mechanical Ventilator 06/12/20 20:00 100 06/12/20 19:39 64 06/12/20 19:32 71 21 89/46 (60) 100 06/12/20 19:06 95 42 100 06/12/20 19:00 84 35 94/44 (61) 100 06/12/20 19:00 94/44 06/12/20 18:30 73 33 101/37 (58) 100 06/12/20 18:07 70 28 85/36 99 06/12/20 18:00 77 33 88/36 (53) 92 06/12/20 18:00 85/36 06/12/20 17:37 81 51 100 06/12/20 17:37 80 44 95/56 06/12/20 17:30 72 40 94/56 (69) 99 06/12/20 17:17 69 37 80 06/12/20 17:00 67 22 108/81 (90) 97 06/12/20 17:00 108/81 06/12/20 16:30 60 30 108/46 (66) 94 06/12/20 16:00 Mechanical Ventilator Mechanical Ventilator 06/12/20 16:00 80 06/12/20 16:00 64 06/12/20 16:00 108/46 06/12/20 16:00 98.0 55 30 108/54 (72) 94 06/12/20 15:45 53 30 134/80 (98) 97 06/12/20 15:30 58 29 145/54 (84) 94 06/12/20 15:24 52 30 80 06/12/20 15:15 53 30 109/62 (78) 95 06/12/20 15:00 128/57 06/12/20 15:00 55 29 128/57 (80) 96 06/12/20 14:45 52 30 113/53 (73) 97 06/12/20 14:30 55 30 119/53 (75) 95 06/12/20 14:15 55 30 112/49 (70) 94 06/12/20 14:00 113/53 06/12/20 14:00 60 29 123/52 (75) 93 06/12/20 13:45 59 29 127/52 (77) 94 06/12/20 13:30 52 30 112/55 (74) 96 06/12/20 13:15 58 29 119/50 (73) 95 06/12/20 13:00 58 29 154/56 (88) 95 06/12/20 13:00 154/58 06/12/20 12:51 53 30 80 06/12/20 12:45 53 30 122/50 (74) 96 06/12/20 12:30 53 30 123/54 (77) 95 06/12/20 12:15 55 30 126/57 (80) 95 06/12/20 12:00 98.6 57 30 123/48 (73) 96 06/12/20 12:00 Mechanical Ventilator Mechanical Ventilator 06/12/20 12:00 100 06/12/20 12:00 61 06/12/20 12:00 128/57 06/12/20 11:45 78 28 151/74 (99) 95 06/12/20 11:30 57 28 111/74 (86) 99 06/12/20 11:26 66 30 80 Intake and Output 06/12/20 06/13/20 19:00 07:00 Intake Total 771.29881 ml 777.04323 ml Output Total 1060 ml 940 ml Balance -288.22458 ml -162.90579 ml Free Water 90 ml 90 ml IV Total 281.07320 ml 177.61346 ml Tube Feeding 400 ml 510 ml Output Urine Total 1060 ml 940 ml # Bowel Movements 1 1 Laboratory Tests 06/13/20 04:00: White Blood Count 11.3H, Red Blood Count 2.61L, Hemoglobin 8.9L, Hematocrit 25.9L, Mean Corpuscular Volume 99, Mean Corpuscular Hemoglobin 33.9H, Mean Corpuscular Hemoglobin Concent 34.3, Red Cell Distribution Width 13.6, Platelet Count 57L, Mean Platelet Volume 7.7, Neutrophils (%) (Auto) , Lymphocytes (%) ( Auto) , Monocytes (%) (Auto) , Eosinophils (%) (Auto) , Basophils (%) (Auto) , Neutrophils % (Manual) [Pending], Lymphocytes % (Manual) [Pending], Platelet Estimate [Pending], Platelet Morphology [Pending], Sodium Level 148H, Potassium Level 2.7*L, Chloride Level 115H, Carbon Dioxide Level 19L, Anion Gap 13, Blood Urea Nitrogen 49H, Creatinine 1.6H, Estimat Glomerular Filtration Rate 33.1, Glucose Level 128H, Calcium Level 8.3L, Phosphorus Level 3.3, Magnesium Level 2.2, Total Bilirubin 1.0, Aspartate Amino Transf (AST/SGOT) 21, Alanine Aminotransferase (ALT/SGPT) 16, Alkaline Phosphatase 53, C-Reactive Protein, Quantitative 2.1H, Total Protein 4.9L, Albumin 1.5L, Globulin 3.4, Albumin/ Globulin Ratio 0.4L, Thyroid Stimulating Hormone (TSH) 0.332L, Valproic Acid ( Depakene) Level 28L 06/13/20 07:30: Arterial Blood pH 7.482H, Arterial Blood Partial Pressure CO2 21.8*L, Arterial Blood Partial Pressure O2 146.5H, Arterial Blood HCO3 15.9*L, Arterial Blood Oxygen Saturation 98.0, Arterial Blood Base Excess -6.3L, Jonathan Test Positive Height (Feet): 5 Height (Inches): 3.00 Weight (Pounds): 172 General Appearance: no apparent distress, lethargic EENT: other - Trach to vent Cardiovascular: normal rate, bradycardia Respiratory/Chest: decreased breath sounds Abdomen: distended Keron Pitt MD Jun 13, 2020 11:22
--- NOTE | 2020-06-13 15:13 | NUR ---
NURSE NOTES: Bed bath given to patient, turned and repositioned. Patient tolerated well, patient is stable, and all safety measures met. Will continue to monitor.
--- NOTE | 2020-06-13 16:13 | NUR ---
CASE MANAGEMENT: REVIEW 06/12/20 SI: PNA . DOWN SYNDROME . SEIZURE DISORDER. THROMBOCYTOPENIA 98.4 53 30 140/65 99% MECH VENT FIO2 80 H/H 8.3/24.6 PLT 53 NA + 147 BUN/CREAT 43/1.6 ABG: pH 7.477 pCO2 20.4 HCO3 14.7 IS: LEVOPHED QD PROTOCOL TITRATED DOPAMINE QD PROTOCOL IV PHENYLEPHRINE QD PROTOCOL TITRATE IV LASIX X1 ICU STATUS DCP: PATIENT IS FROM HOME [employer]: ACTIVELY WEANING FAILED WEANING ATTEMPTS
--- NOTE | 2020-06-13 18:11 | Cardiology Progress Note ---
Assessment/Plan Assessment/Plan pneumonia, severe hypotension,on pressors, attempt to wean off Subjective Subjective The patient is sedated and intubated. Does not respond to verbal stimuli Objective Last 24 Hour Vital Signs Date Time Temp Pulse Resp B/P (MAP) Pulse Ox O2 Delivery O2 Flow Rate FiO2 06/13/20 17:30 55 26 93/48 (63) 100 06/13/20 17:00 93/48 06/13/20 17:00 56 26 89/45 (60) 100 06/13/20 16:41 60 26 100 06/13/20 16:30 65 26 93/44 (60) 100 06/13/20 16:00 100 06/13/20 16:00 Mechanical Ventilator Mechanical Ventilator 06/13/20 16:00 63 06/13/20 16:00 89/45 06/13/20 16:00 99.2 64 26 84/44 (57) 100 06/13/20 15:30 63 26 119/60 (79) 100 06/13/20 15:00 72 26 93/40 (57) 100 06/13/20 15:00 93/40 06/13/20 14:30 61 26 100 06/13/20 14:30 68 26 99/38 (58) 100 06/13/20 14:00 96/41 06/13/20 14:00 99/38 06/13/20 14:00 66 26 96/41 (59) 100 06/13/20 13:30 64 26 92/42 (59) 100 06/13/20 13:00 98/44 06/13/20 13:00 57 26 98/44 (62) 100 06/13/20 12:52 54 26 100 06/13/20 12:30 55 26 89/49 (62) 100 06/13/20 12:00 98.5 55 26 95/47 (63) 99 06/13/20 12:00 95/47 06/13/20 12:00 Mechanical Ventilator Mechanical Ventilator 06/13/20 12:00 100 06/13/20 11:30 55 26 98/51 (67) 100 06/13/20 11:30 56 06/13/20 11:15 95/47 06/13/20 11:05 55 26 100 06/13/20 11:00 97/49 06/13/20 11:00 54 26 97/49 (65) 100 06/13/20 10:30 54 26 95/48 (64) 100 06/13/20 10:00 99/39 06/13/20 10:00 54 26 99/39 (59) 100 06/13/20 09:30 54 26 95/45 (62) 100 06/13/20 09:00 98/48 06/13/20 09:00 54 30 98/48 (65) 100 06/13/20 08:58 53 26 100 06/13/20 08:30 54 26 98/48 (65) 100 06/13/20 08:00 52 06/13/20 08:00 106/51 06/13/20 08:00 97.5 65 29 106/51 (69) 99 06/13/20 08:00 100 06/13/20 08:00 Mechanical Ventilator Mechanical Ventilator 06/13/20 07:30 51 30 100 06/13/20 07:30 76 26 101/48 (65) 97 06/13/20 07:00 52 30 101/51 (68) 100 06/13/20 07:00 101/51 06/13/20 06:30 52 30 111/49 (69) 100 06/13/20 06:00 52 30 100/50 (67) 100 06/13/20 06:00 100/50 06/13/20 05:30 52 30 107/50 (69) 100 06/13/20 05:01 53 30 100 06/13/20 05:00 50 29 104/51 (68) 100 06/13/20 05:00 104/51 06/13/20 04:30 50 30 108/54 (72) 100 06/13/20 04:00 Mechanical Ventilator Mechanical Ventilator 06/13/20 04:00 97.6 50 30 108/54 (72) 100 06/13/20 04:00 108/54 06/13/20 04:00 100 06/13/20 03:30 50 30 113/54 (73) 100 06/13/20 03:24 53 06/13/20 03:08 52 30 100 06/13/20 03:00 109/53 06/13/20 03:00 51 30 109/53 (71) 100 06/13/20 02:30 51 30 103/50 (67) 100 06/13/20 02:00 107/50 06/13/20 02:00 52 30 107/50 (69) 100 06/13/20 01:30 51 30 113/57 (75) 100 06/13/20 01:00 51 30 100 06/13/20 01:00 51 30 113/55 (74) 100 06/13/20 01:00 113/55 06/13/20 00:30 51 29 110/56 (74) 100 06/13/20 00:00 100 06/13/20 00:00 114/58 06/13/20 00:00 97.4 52 30 114/58 (76) 100 06/13/20 00:00 Mechanical Ventilator Mechanical Ventilator 06/12/20 23:45 51 30 112/56 (74) 100 06/12/20 23:30 51 30 108/55 (72) 100 06/12/20 23:17 51 06/12/20 23:15 51 30 108/52 (70) 100 06/12/20 23:08 55 30 100 06/12/20 23:00 52 30 105/55 (72) 100 06/12/20 23:00 105/55 06/12/20 22:45 52 30 109/56 (73) 100 06/12/20 22:30 51 29 98/55 (69) 100 06/12/20 22:15 154/60 06/12/20 22:00 51 29 135/64 (87) 100 06/12/20 22:00 135/64 06/12/20 21:30 49 30 136/63 (87) 100 06/12/20 21:00 115/55 06/12/20 21:00 52 29 115/55 (75) 100 06/12/20 20:43 50 30 100 06/12/20 20:30 51 30 120/57 (78) 100 06/12/20 20:00 117/59 06/12/20 20:00 55 30 117/59 (78) 100 06/12/20 20:00 Mechanical Ventilator Mechanical Ventilator 06/12/20 20:00 100 06/12/20 19:39 64 06/12/20 19:32 71 21 89/46 (60) 100 06/12/20 19:06 95 42 100 06/12/20 19:00 84 35 94/44 (61) 100 06/12/20 19:00 94/44 9/4/20 18:30 73 33 101/37 (58) 100 General Appearance: on vent, other - not responsive EENT: other - no asymmetry Neck: no JVD Rhythm: SB Cardiovascular: bradycardia, systolic murmur Respiratory/Chest: decreased breath sounds, crackles/rales Abdomen: other Extremities: other - generalized edema Intake and Output 06/12/20 06/13/20 19:00 07:00 Intake Total 771.80162 ml 777.51041 ml Output Total 1060 ml 940 ml Balance -288.46943 ml -162.00952 ml Free Water 90 ml 90 ml IV Total 281.50469 ml 177.67429 ml Tube Feeding 400 ml 510 ml Output Urine Total 1060 ml 940 ml # Bowel Movements 1 1 Laboratory Tests Test 06/13/20 04:00 06/13/20 07:30 White Blood Count 11.3 K/UL (4.8-10.8) H Red Blood Count 2.61 M/UL (4.20-5.40) L Hemoglobin 8.9 G/DL (12.0-16.0) L Hematocrit 25.9 % (37.0-47.0) L Mean Corpuscular Volume 99 FL (80-99) Mean Corpuscular Hemoglobin 33.9 PG (27.0-31.0) H Mean Corpuscular Hemoglobin Concent 34.3 G/DL (32.0-36.0) Red Cell Distribution Width 13.6 % (11.6-14.8) Platelet Count 57 K/UL (150-450) L Mean Platelet Volume 7.7 FL (6.5-10.1) Neutrophils (%) (Auto) % (45.0-75.0) Lymphocytes (%) (Auto) % (20.0-45.0) Monocytes (%) (Auto) % (1.0-10.0) Eosinophils (%) (Auto) % (0.0-3.0) Basophils (%) (Auto) % (0.0-2.0) Differential Total Cells Counted 100 Neutrophils % (Manual) 81 % (45-75) H Lymphocytes % (Manual) 10 % (20-45) L Monocytes % (Manual) 7 % (1-10) Eosinophils % (Manual) 0 % (0-3) Basophils % (Manual) 0 % (0-2) Band Neutrophils 2 % (0-8) Platelet Estimate Decreased L Platelet Morphology Normal Hypochromasia 1+ Sodium Level 148 MMOL/L (136-145) H Potassium Level 2.7 MMOL/L (3.5-5.1) *L Chloride Level 115 MMOL/L (98-107) H Carbon Dioxide Level 19 MMOL/L (21-32) L Anion Gap 13 mmol/L (5-15) Blood Urea Nitrogen 49 mg/dL (7-18) H Creatinine 1.6 MG/DL (0.55-1.30) H Estimat Glomerular Filtration Rate 33.1 mL/min (>60) Glucose Level 128 MG/DL (74-106) H Calcium Level 8.3 MG/DL (8.5-10.1) L Phosphorus Level 3.3 MG/DL (2.5-4.9) Magnesium Level 2.2 MG/DL (1.8-2.4) Total Bilirubin 1.0 MG/DL (0.2-1.0) Aspartate Amino Transf (AST/SGOT) 21 U/L (15-37) Alanine Aminotransferase (ALT/SGPT) 16 U/L (12-78) Alkaline Phosphatase 53 U/L (46-116) C-Reactive Protein, Quantitative 2.1 mg/dL (0.00-0.90) H Total Protein 4.9 G/DL (6.4-8.2) L Albumin 1.5 G/DL (3.4-5.0) L Globulin 3.4 g/dL Albumin/Globulin Ratio 0.4 (1.0-2.7) L Thyroid Stimulating Hormone (TSH) 0.332 uiU/mL (0.358-3.740) Valproic Acid (Depakene) Level 28 MCG/ML (50-100) L Arterial Blood pH 7.482 (7.350-7.450) Arterial Blood Partial Pressure CO2 21.8 mmHg (35.0-45.0) *L Arterial Blood Partial Pressure O2 146.5 mmHg (75.0-100.0) H Arterial Blood HCO3 15.9 mmol/L (22.0-26.0) *L Arterial Blood Oxygen Saturation 98.0 % (95-100) Arterial Blood Base Excess -6.3 (-2-2) L Jonathan Test Positive Tequila,Lesley Y. MD Jun 13, 2020 18:11
--- NOTE | 2020-06-13 18:43 | NUR ---
NURSE NOTES: Patient seen and assessed by Dr. Hawk.
--- NOTE | 2020-06-13 19:00 | NUR ---
NURSE NOTES: Received patient and report from TAI Pereira. Patient is observed resting in bed and noted to be lethargic but responsive to stimuli; withdraws to pain, opens eyes spontaneously, MARTY and noted to be tracking. Pt is currently able to follow very simple commands. No pain noted upon assessment. Pt is currently orally intubated ett size 7.5 noted to be 22 @ lip. Vent settings as follows: AC 26 TV 500 FiO2 100% PEEP 10 with an O2 saturation of 100% noted at this time. No s/sx of acute respiratory distress noted at this time, pt tolerating current vent settings well. Bilateral lower lobe breath sounds noted to be diminished upon auscultation and rhonchi noted in bilateral upper and lower lobes. Pt noted to be SB on tele monitor with a HR of 52 with no s/sx of acute cardiac distress noted. Left upper arm PICC line noted which remains asymptomatic, intact and patent. Central line dressing remains clean ,dry and intact. Dopamine currently infusing at 2 mcg/kg/min. No s/sx of adverse effects noted at this time from medication administration. G tube noted which remains intact and patent. Jevity 1.2 infusing at 50mL/hr as prescribed with no residual noted at this time. Active bowel sounds noted in all four quadrants, abdomen remains large, soft and round. Diagnostics reviewed at bedside. Skin alterations noted. Pt repositioned for comfort and safety. Fall, Aspiration, Seizure and Skin precautions observed. Pt remains resting in bed; Bed remains in the lowest position with the safety wheels engaged, call light within reach, side rails up x3 and bed alarm activated. Will continue plan of care. Will continue to monitor.
--- NOTE | 2020-06-13 19:10 | NUR ---
NURSE HAND-OFF REPORT: Latest Vital Signs: Temperature 99.2 , Pulse 53 , B/P 102 /52 , Respiratory Rate 26 , O2 SAT 100 , Mechanical Ventilator, O2 Flow Rate 15.0 . Vital Sign Comment: EKG Rhythm: Sinus Rhythm Rhythm change?: N MD Notified?: - MD Response: Latest Osorio Fall Score: 50 Fall Risk: High Risk Safety Measures: Call light Within Reach, Bed Alarm Zone 2, Side Rails Side Rails x3, Bed position Low and Locked. Fall Precautions: Door Sign Patient Fall Education Report given to Nevin LUJAN.
[2020-06-13] MEDS: Dyna-Hex 2% Top Sol 2oz TOPIC SCH (20:07)
--- NOTE | 2020-06-13 21:28 | NUR ---
NURSE NOTES: Bedside assessment performed, assessed pt with a FLACC scale of 0 noted. VS obtained and remain stable at this time. Dopamine continues to infuse at 2 mcg/kg/min with no adverse effects noted. SBP remains between 93-105 at this time. Will continue to monitor and titrate accordingly. Respiratory status remains stable with no s/sx of acute distress noted. Pt tolerating current vent settings well. Neuro assessment remains consistent with previous physical assessment, no s/sx of seizures noted. Pt remains clean and dry. Pt repositioned for safety and comfort. Fall, Aspiration, Seizure and Skin precautions observed. Pt remains resting in bed; Bed remains in the lowest position with the safety wheels engaged, call light within reach, side rails up x3 and bed alarm activated. Will continue plan of care. Will continue to monitor.
--- NOTE | 2020-06-13 23:00 | NUR ---
NURSE NOTES: Pt provided with a CHG bed bath, oral care and linen change. ROM exercises performed per pt tolerance. Pt tolerated care well. Bedside assessment performed, assessed pt with a FLACC scale of 0 noted. VS obtained and remain stable at this time. Dopamine continues to infuse at 2 mcg/kg/min with no adverse effects noted from medication administration. Respiratory status remains stable, RR remains between 26-28 consistent with ventilator settings. Pt remains clean and dry. Pt repositioned for comfort and safety. Fall, Aspiration, Seizure and Skin precautions observed. Pt remains resting in bed; Bed remains in the lowest position with the safety wheels engaged, call light within reach, side rails up x3 and bed alarm activated. Will continue plan of care. Will continue to monitor.
--- NOTE | 2020-06-13 23:39 | Internal Med Progress Note ---
Subjective Physician Name Guillaume Hawk Attending Physician Elayne Allred MD Current Medications Medications (Trade) Dose Ordered Sig/Katy Route PRN Reason Start Time Stop Time Status Last Admin Dose Admin Acetaminophen (Tylenol) 650 mg Q4H PRN GT FEVER 06/03/20 11:45 07/03/20 11:44 06/06/20 23:15 Chlorhexidine Gluconate (Alla-Hex 2%) 1 applic DAILY@2000 TOPIC 06/08/20 20:00 09/06/20 19:59 06/13/20 20:07 Clotrimazole (Lotrimin) 1 applic Q12HR TOPIC 06/07/20 13:00 09/05/20 12:59 06/13/20 20:07 Dextrose (Dextrose 50%) 25 ml Q30M PRN IV Hypoglycemia 06/03/20 11:30 08/28/20 11:29 Dextrose (Dextrose 50%) 50 ml Q30M PRN IV Hypoglycemia 06/03/20 11:30 08/28/20 11:29 Dopamine HCl/ Dextrose 250 ml @ 0 mls/hr Q24H IV 06/12/20 11:15 09/10/20 11:14 06/13/20 14:00 Hydrocortisone (Solu-CORTEF) 100 mg EVERY 8 HOURS IV 06/07/20 14:00 09/05/20 13:59 06/13/20 21:02 Levothyroxine Sodium (Synthroid) 75 mcg DAILY GT 06/04/20 09:00 06/30/20 08:59 06/13/20 09:01 Lorazepam (Ativan 2mg/ml 1ml) 2 mg Q2H PRN IV For Anxiety 06/12/20 17:30 06/19/20 17:29 06/12/20 17:37 Meropenem 1 gm/ Sodium Chloride 55 ml @ 110 mls/hr Q12H IVPB 06/03/20 16:00 06/18/20 15:59 06/13/20 16:18 Midodrine (Pro-Amatine) 10 mg Q8HR GT 06/05/20 14:00 09/03/20 13:59 06/13/20 21:02 Norepinephrine Bitartrate 16 mg/ Dextrose 500 ml @ 0 mls/hr Q24H IV 06/08/20 07:45 07/07/20 12:59 06/12/20 08:43 Ondansetron HCl (Zofran) 4 mg Q6H PRN IVP Nausea & Vomiting 06/03/20 12:00 06/29/20 11:59 Pantoprazole (Protonix) 40 mg DAILY IV 06/04/20 09:00 06/30/20 08:59 06/13/20 09:01 Phenylephrine HCl 50 mg/Dextrose 250 ml @ 0 mls/hr Q24H PRN IV For hypotension 06/06/20 17:45 07/06/20 17:44 06/08/20 01:49 Polyethylene Glycol (Miralax) 17 gm DAILYPRN PRN GT Constipation 06/03/20 12:00 06/29/20 11:59 Valproic Acid (Depakene) 500 mg EVERY 8 HOURS GT 06/03/20 14:00 06/29/20 21:59 06/13/20 21:02 Allergies: Coded Allergies: No Known Allergies (Unverified , 10/16/18) Subjective in ICU, remained intubated on the vent, open eyes, unable to follow command. WBC : 11.3, K: 2.7. Renal function stable Objective Last Vital Signs Date Time Temp Pulse Resp B/P (MAP) Pulse Ox O2 Delivery O2 Flow Rate FiO2 06/13/20 23:00 98/50 06/13/20 23:00 56 25 100 06/13/20 20:45 100 06/13/20 20:00 Mechanical Ventilator Mechanical Ventilator 06/13/20 20:00 98.4 Laboratory Tests Test 06/13/20 04:00 06/13/20 07:30 White Blood Count 11.3 K/UL (4.8-10.8) H Red Blood Count 2.61 M/UL (4.20-5.40) L Hemoglobin 8.9 G/DL (12.0-16.0) L Hematocrit 25.9 % (37.0-47.0) L Mean Corpuscular Volume 99 FL (80-99) Mean Corpuscular Hemoglobin 33.9 PG (27.0-31.0) H Mean Corpuscular Hemoglobin Concent 34.3 G/DL (32.0-36.0) Red Cell Distribution Width 13.6 % (11.6-14.8) Platelet Count 57 K/UL (150-450) L Mean Platelet Volume 7.7 FL (6.5-10.1) Neutrophils (%) (Auto) % (45.0-75.0) Lymphocytes (%) (Auto) % (20.0-45.0) Monocytes (%) (Auto) % (1.0-10.0) Eosinophils (%) (Auto) % (0.0-3.0) Basophils (%) (Auto) % (0.0-2.0) Differential Total Cells Counted 100 Neutrophils % (Manual) 81 % (45-75) H Lymphocytes % (Manual) 10 % (20-45) L Monocytes % (Manual) 7 % (1-10) Eosinophils % (Manual) 0 % (0-3) Basophils % (Manual) 0 % (0-2) Band Neutrophils 2 % (0-8) Platelet Estimate Decreased L Platelet Morphology Normal Hypochromasia 1+ Sodium Level 148 MMOL/L (136-145) H Potassium Level 2.7 MMOL/L (3.5-5.1) *L Chloride Level 115 MMOL/L (98-107) H Carbon Dioxide Level 19 MMOL/L (21-32) L Anion Gap 13 mmol/L (5-15) Blood Urea Nitrogen 49 mg/dL (7-18) H Creatinine 1.6 MG/DL (0.55-1.30) H Estimat Glomerular Filtration Rate 33.1 mL/min (>60) Glucose Level 128 MG/DL (74-106) H Calcium Level 8.3 MG/DL (8.5-10.1) L Phosphorus Level 3.3 MG/DL (2.5-4.9) Magnesium Level 2.2 MG/DL (1.8-2.4) Total Bilirubin 1.0 MG/DL (0.2-1.0) Aspartate Amino Transf (AST/SGOT) 21 U/L (15-37) Alanine Aminotransferase (ALT/SGPT) 16 U/L (12-78) Alkaline Phosphatase 53 U/L (46-116) C-Reactive Protein, Quantitative 2.1 mg/dL (0.00-0.90) H Total Protein 4.9 G/DL (6.4-8.2) L Albumin 1.5 G/DL (3.4-5.0) L Globulin 3.4 g/dL Albumin/Globulin Ratio 0.4 (1.0-2.7) L Thyroid Stimulating Hormone (TSH) 0.332 uiU/mL (0.358-3.740) Valproic Acid (Depakene) Level 28 MCG/ML (50-100) L Arterial Blood pH 7.482 (7.350-7.450) Arterial Blood Partial Pressure CO2 21.8 mmHg (35.0-45.0) *L Arterial Blood Partial Pressure O2 146.5 mmHg (75.0-100.0) H Arterial Blood HCO3 15.9 mmol/L (22.0-26.0) *L Arterial Blood Oxygen Saturation 98.0 % (95-100) Arterial Blood Base Excess -6.3 (-2-2) L Jonathan Test Positive Intake and Output 06/12/20 06/13/20 19:00 07:00 Intake Total 771.74652 ml 777.82579 ml Output Total 1060 ml 940 ml Balance -288.24787 ml -162.78894 ml Free Water 90 ml 90 ml IV Total 281.55487 ml 177.52528 ml Tube Feeding 400 ml 510 ml Output Urine Total 1060 ml 940 ml # Bowel Movements 1 1 Objective General: remain intubated, unable to follow command, open eyes. HEENT: NCAT, sclera anicteric, PERRL, ET Tube. Neck: Supple, no significant jugular venous distention, Lungs: mechanical breath sounds decreased air at the bases, no Wheeze or Rales. Heart: Regular rate and rhythm, normal S1/S2, no murmurs/gallops Abdomen: soft, not tender, not distended. + bowel sounds, Morbid Obesity, PEG site intact. Extremities: No Cyanosis , clubbing, upper extremities less edema. left upper extremity PICC line. Neuro: limited secondary to patient status, unable to follow command, bilateral upper and lower extremities contracted. Assessment/Plan Assessment/Plan Problem List: (1) HCAP (healthcare-associated pneumonia) (2) Sepsis (3) Down's syndrome (4) Dysphagia S/P PEG (5) Seizure disorder (6) Hypothyroidism (7) Acute Hypoxemic respiratory failure (8) Persistent, high grade bacteremia- r/o endocarditis (9) LEANN Plan: Tolerated tube feeding @ 50 cc/hr Follow-up with laboratory and cultures on Dopamine drip @ 2 Mcq Hydrocortisone 100 mg IV every 8 Cont Daptomycin #12(abx d #14/14) for GPC bacteremia in view of LEANN. Cont Meropenem#11/10-14 (abx d #14) given resp decompensation chest x-ray: Improving. Guillaume Hawk MD Jun 13, 2020 23:39
[2020-06-14] VITALS (53 sets, daily range): BP systolic 89–119; BP diastolic 40–92
--- NOTE | 2020-06-14 01:00 | NUR ---
NURSE NOTES: Bedside assessment performed, assessed pt with a FLACC scale of 0 noted. Pt observed to be resting comfortably in bed. VS obtained and remain stable at this time. Dopamine continues to infuse at 2 mcg/kg/min with no adverse effects noted. Respiratory status remains stable with no s/sx of acute distress noted, consistent with ventilator settings at this time. Neuro assessment remains consistent with previous physical assessment, no s/sx of seizures noted. Pt remains clean and dry. Pt repositioned for safety and comfort. Fall, Aspiration, Seizure and Skin precautions observed. Pt remains resting in bed; Bed remains in the lowest position with the safety wheels engaged, call light within reach, side rails up x3 and bed alarm activated. Will continue plan of care. Will continue to monitor.
--- NOTE | 2020-06-14 03:00 | NUR ---
NURSE NOTES: Bedside assessment performed, assessed pt with a FLACC scale of 0 noted. Pt observed to be resting comfortably in bed. VS obtained and remain stable at this time. Pt provided with a partial bed bath and oral care. Dopamine continues to infuse at 2 mcg/kg/min with no adverse effects noted. Respiratory status remains stable with no s/sx of acute distress noted, consistent with ventilator settings at this time. Pt remains clean and dry. Pt repositioned for safety and comfort. Fall, Aspiration, Seizure and Skin precautions observed. Pt remains resting in bed; Bed remains in the lowest position with the safety wheels engaged, call light within reach, side rails up x3 and bed alarm activated. Will continue plan of care. Will continue to monitor.
[2020-06-14] MEDS: Meropenem 1 GM in NS 55 ML IVPB SCH ×3 (03:02→19:46)
--- NOTE | 2020-06-14 05:00 | NUR ---
NURSE NOTES: Bedside assessment performed, assessed pt with a FLACC scale of 0 noted. Pt observed to be resting comfortably in bed. VS obtained and remain stable at this time. Pt provided with a partial bed bath and oral care. Dopamine continues to infuse at 2 mcg/kg/min with no adverse effects noted. Respiratory status remains stable with no s/sx of acute distress noted, consistent with ventilator settings at this time. AM lab draw performed without incident and samples delivered to laboratory for analysis. Will await results and continue to monitor. No change in neurological assessment, findings remain consistent with previous physical assessment. No s/sx of seizures noted for duration of shift. Pt remains clean and dry. Pt repositioned for safety and comfort. Fall, Aspiration, Seizure and Skin precautions observed. Pt remains resting in bed; Bed remains in the lowest position with the safety wheels engaged, call light within reach, side rails up x3 and bed alarm activated. Will continue plan of care. Will continue to monitor.
[2020-06-14 05:20] LABS: HEMATOCRIT 24.3 % (37.0-47.0); HEMOGLOBIN 8.3 G/DL (12.0-16.0); MEAN CORPUSCULAR VOLUME 100 FL (80-99); PLATELET COUNT 58 K/UL (150-450); RED BLOOD COUNT 2.44 M/UL (4.20-5.40); RED CELL DISTRIBUTION WIDTH 14.2 % (11.6-14.8); WHITE BLOOD COUNT 14.9 K/UL (4.8-10.8)
[2020-06-14] MEDS: Hydrocortisone 100mg Inj IV SCH ×3 (05:23→19:46)
[2020-06-14] MEDS: Midodrine 10mg tab GT SCH ×3 (05:23→19:46)
[2020-06-14] MEDS: Valproic Acid 250mg/5ml Liquid GT SCH ×3 (05:23→19:46)
--- NOTE | 2020-06-14 06:28 | NUR ---
NURSE NOTES: Nutrition present at bedside, discussed current pt condition and plan of care. [place] obtained per order.
[2020-06-14 06:39] LABS: ALANINE AMINOTRANSFERASE 86 U/L (12-78); ALBUMIN 1.4 G/DL (3.4-5.0); ALBUMIN/GLOBULIN RATIO 0.4 (1.0-2.7); ALKALINE PHOSPHATASE 61 U/L (46-116); ANION GAP 11 mmol/L (5-15); ASPARTATE AMINO TRANSFERASE 83 U/L (15-37); BILIRUBIN,TOTAL 0.7 MG/DL (0.2-1.0); BLOOD UREA NITROGEN 45 mg/dL (7-18); CALCIUM 8.3 MG/DL (8.5-10.1); CARBON DIOXIDE 22 MMOL/L (21-32); CHLORIDE 117 MMOL/L (98-107); CREATININE 1.4 MG/DL (0.55-1.30); PHOSPHORUS 3.1 MG/DL (2.5-4.9); POTASSIUM 3.4 MMOL/L (3.5-5.1); SODIUM 150 MMOL/L (136-145)
--- NOTE | 2020-06-14 07:13 | NUR ---
NURSE HAND-OFF REPORT: Latest Vital Signs: Temperature 98.5 , Pulse 58 , B/P 119 /73 , Respiratory Rate 26 , O2 SAT 100 , Mechanical Ventilator, O2 Flow Rate 15.0 . Vital Sign Comment: - EKG Rhythm: Sinus Bradycardia Rhythm change?: N MD Notified?: - MD Response: N/A Latest Osorio Fall Score: 50 Fall Risk: High Risk Safety Measures: Call light Within Reach, Bed Alarm Zone 2, Side Rails Side Rails x3, Bed position Low and Locked. Fall Precautions: Door Sign Patient Fall Education Report given to TAI Zamorano. Endorsed plan of care.
--- NOTE | 2020-06-14 07:15 | NUR ---
NURSE NOTES: Received report from TAI Rooney. Patient asleep and responsive to shaking. ETT 7.5/22cm at lip line with vent setting AC 26, VT 500, FiO2 100% and Peep 10. O2 sat 100% on the monitor. Gtube intact and running with Jevity 1.2 @50ml/hr. Gregorio intact, patent and draining with yellow color urine. Left upper arm PICC intact and running Dopamine 2mcg/kg/min. Kept dry, clean, comfortable and HOB>30. Will continue plan of care.
[2020-06-14] MEDS: Norepinephrine Bitartrate 16 MG in D5W 500ml 484 ML IV SCH (07:45)
[2020-06-14] MEDS: Pantoprazole Inj IV SCH (08:31)
--- NOTE | 2020-06-14 11:55 | Infectious Diseases Prog Note ---
Assessment/Plan ASSESSMENT: sp code blue 06/03 Septic Shock; SP Fever, SP Leukocytosis; SP -06/03 u/a no pyuria Pneumonia.- COVID 19 neg x3 Acute hypoxic resp failure on VM> NRB 15l 100%; hypoxic on ABG> now VDRF 06/03 - Fio2 80% >100% 06/05> 60% 06/09 >80% 06/10 -06/09 sp cx Neg 06/08 CXR: Extensive bilateral interstitial and airspace disease appears similar to the prior exam. Moderate to large bilateral pleural effusions appear unchanged. 06/05 CXR: Increasing left upper lobe dense consolidation and likely increasing bilateral pleural fluid. Persistent diffuse dense consolidation elsewhere -06/03 sp cx normal resp marie -06/02 CXR: Increased atelectasis of the right lung, since prior exam of 3 days earlier. New or increased right pleural effusion. Increased left basilar consolidation and/or pleural fluid -COVID Rapid PCR neg 05/31, 05/31, 06/03 -05/30 spc x Group G strep -05/30 CXR: Reduced lung volumes. Patchy bilateral predominantly interstitial pulmonary opacities. Could be from edema and/or pneumonia. There is a broader differential. -legionella ag urine, blasto ab, Histo ab, HIV ab screen neg Persistent, high grade bacteremia- -05/30 Bcx 4/4 sets S. haemolyticus; 05/31 Bcx 3/4 S/ epi; 06/04 Bcx 1.4 S. warnerri; 06/06 Bcx Neg -2d echo: no vegetaions seen ua/ wbc 10-15, nit neg, leuk +1; ucx Neg LEANN; -supratherapeutic vanco levels -Seizure disorder. - Hypothyroidism. - Down syndrome. History of PEG tube placement. [place] resident PLAN: -repeat blood Cx Cont Meropenem#12/10-14 (abx d #16) given resp decompensation -06/10 SP MIcafungin #7, Linezolid #5 f/u Repeat BCx given persistent bacteremia CT chest when stable enough, not currently given on FiO2 100% and pressors If pleural effusions, should be tapped to r/o empyema, send for bacterial cx as well as cell count and diff F/u cx of exudate around G-tube Trend GIB (black stools) 06/12/20 SP Daptomycin #11 06/05 SP Azithromycin #7/7 06/03 SP Ceftriaxone #2 06/02 SP IV Vancomycin #4, Zosyn #4 05/30 SP Cefepime x1, Flagyl x1 - Monitor CBC, BMP. -f/u Cocci ab, CrAg .f/u Repeat cx - COVID neg x3 - Monitor chest x-ray. - Monitor the patient's clinical course and labs. Based on those, we will do further recommendation. Thank you, Dr. Allred, for allowing me to participate in the care of this patient. I will follow the patient with you at this hospitalization. Discussed with RN Subjective Allergies: Coded Allergies: No Known Allergies (Unverified , 10/16/18) Objective Last 24 Hour Vital Signs Date Time Temp Pulse Resp B/P (MAP) Pulse Ox O2 Delivery O2 Flow Rate FiO2 06/14/20 11:30 67 26 104/44 (64) 100 06/14/20 11:01 63 26 100 06/14/20 11:00 61 26 107/47 (67) 100 06/14/20 10:30 61 26 96/44 (61) 100 06/14/20 10:00 59 26 104/46 (65) 100 06/14/20 09:30 62 26 98/44 (62) 100 06/14/20 09:00 59 26 102/46 (64) 100 06/14/20 08:30 59 26 100 06/14/20 08:30 59 26 101/51 (68) 100 06/14/20 08:00 98.2 61 26 104/48 (66) 100 06/14/20 08:00 Mechanical Ventilator Mechanical Ventilator 06/14/20 08:00 100 06/14/20 07:45 99/45 06/14/20 07:30 59 26 103/47 (65) 100 06/14/20 07:11 59 26 100 06/14/20 07:00 99/45 06/14/20 07:00 57 26 99/45 (63) 100 06/14/20 06:30 58 26 119/73 (88) 100 06/14/20 06:00 56 26 104/45 (64) 100 06/14/20 05:30 61 26 97/46 (63) 100 06/14/20 05:05 56 26 100 06/14/20 05:00 66 26 108/47 (67) 100 06/14/20 05:00 108/47 06/14/20 04:30 55 26 98/47 (64) 100 06/14/20 04:00 55 06/14/20 04:00 100 06/14/20 04:00 98.5 57 26 97/48 (64) 100 06/14/20 04:00 97/48 06/14/20 04:00 Mechanical Ventilator Mechanical Ventilator 06/14/20 03:30 64 25 109/50 (69) 100 06/14/20 03:00 55 26 107/47 (67) 100 06/14/20 03:00 107/47 06/14/20 02:39 52 26 100 06/14/20 02:30 54 26 106/45 (65) 100 06/14/20 02:00 57 26 105/49 (67) 100 06/14/20 02:00 105/49 06/14/20 01:30 52 26 105/47 (66) 100 06/14/20 01:30 51 26 100 06/14/20 01:00 101/45 06/14/20 01:00 57 26 101/45 (63) 100 06/14/20 00:30 57 26 97/50 (66) 100 06/14/20 00:19 58 06/14/20 00:00 99/50 06/14/20 00:00 98.2 63 21 99/50 (66) 100 06/14/20 00:00 Mechanical Ventilator Mechanical Ventilator 06/14/20 00:00 100 06/13/20 23:30 66 26 100 06/13/20 23:30 84 20 87/57 (67) 97 06/13/20 23:00 98/50 06/13/20 23:00 56 25 98/50 (66) 100 06/13/20 22:30 66 22 92/50 (64) 94 06/13/20 22:00 57 26 91/48 (62) 100 06/13/20 22:00 91/48 06/13/20 21:30 59 26 94/45 (61) 100 06/13/20 21:00 93/53 06/13/20 21:00 61 26 93/53 (66) 100 06/13/20 20:45 55 26 100 06/13/20 20:30 60 25 93/48 (63) 99 06/13/20 20:00 Mechanical Ventilator Mechanical Ventilator 06/13/20 20:00 98.4 61 26 98/45 (62) 100 06/13/20 20:00 98/45 06/13/20 20:00 100 06/13/20 19:30 56 26 100 06/13/20 19:30 53 26 91/47 (62) 100 06/13/20 19:14 52 06/13/20 19:00 102/52 06/13/20 19:00 53 26 102/52 (69) 100 06/13/20 18:28 59 26 103/55 (71) 100 06/13/20 18:00 54 26 101/45 (63) 100 06/13/20 18:00 101/45 06/13/20 17:30 55 26 93/48 (63) 100 06/13/20 17:00 93/48 06/13/20 17:00 56 26 89/45 (60) 100 06/13/20 16:41 60 26 100 06/13/20 16:30 65 26 93/44 (60) 100 06/13/20 16:00 100 06/13/20 16:00 Mechanical Ventilator Mechanical Ventilator 06/13/20 16:00 63 06/13/20 16:00 89/45 06/13/20 16:00 99.2 64 26 84/44 (57) 100 06/13/20 15:30 63 26 119/60 (79) 100 06/13/20 15:00 72 26 93/40 (57) 100 06/13/20 15:00 93/40 06/13/20 14:30 61 26 100 06/13/20 14:30 68 26 99/38 (58) 100 06/13/20 14:00 96/41 06/13/20 14:00 99/38 06/13/20 14:00 66 26 96/41 (59) 100 06/13/20 13:30 64 26 92/42 (59) 100 06/13/20 13:00 98/44 06/13/20 13:00 57 26 98/44 (62) 100 06/13/20 12:52 54 26 100 06/13/20 12:30 55 26 89/49 (62) 100 06/13/20 12:00 98.5 55 26 95/47 (63) 99 06/13/20 12:00 95/47 06/13/20 12:00 Mechanical Ventilator Mechanical Ventilator 06/13/20 12:00 100 Height (Feet): 5 Height (Inches): 3.00 Weight (Pounds): 172 GEN: NAD on Vent HEENT: NCAT,Intubated Pulm: Equal chest rise and fall B/L, No accessory muscle use ABD: Soft, ND SKIN: Exposed skin with no rash, Normal in color Laboratory Tests Test 06/14/20 04:00 White Blood Count 14.9 K/UL (4.8-10.8) H Red Blood Count 2.44 M/UL (4.20-5.40) L Hemoglobin 8.3 G/DL (12.0-16.0) L Hematocrit 24.3 % (37.0-47.0) L Mean Corpuscular Volume 100 FL (80-99) H Mean Corpuscular Hemoglobin 34.0 PG (27.0-31.0) H Mean Corpuscular Hemoglobin Concent 34.1 G/DL (32.0-36.0) Red Cell Distribution Width 14.2 % (11.6-14.8) Platelet Count 58 K/UL (150-450) L Mean Platelet Volume 8.0 FL (6.5-10.1) Neutrophils (%) (Auto) % (45.0-75.0) Lymphocytes (%) (Auto) % (20.0-45.0) Monocytes (%) (Auto) % (1.0-10.0) Eosinophils (%) (Auto) % (0.0-3.0) Basophils (%) (Auto) % (0.0-2.0) Differential Total Cells Counted 100 Neutrophils % (Manual) 80 % (45-75) H Lymphocytes % (Manual) 10 % (20-45) L Monocytes % (Manual) 10 % (1-10) Eosinophils % (Manual) 0 % (0-3) Basophils % (Manual) 0 % (0-2) Band Neutrophils 0 % (0-8) Platelet Estimate Decreased L Platelet Morphology Normal Hypochromasia 2+ Anisocytosis 1+ Macrocytosis 1+ Sodium Level 150 MMOL/L (136-145) H Potassium Level 3.4 MMOL/L (3.5-5.1) L Chloride Level 117 MMOL/L (98-107) H Carbon Dioxide Level 22 MMOL/L (21-32) Anion Gap 11 mmol/L (5-15) Blood Urea Nitrogen 45 mg/dL (7-18) H Creatinine 1.4 MG/DL (0.55-1.30) H Estimat Glomerular Filtration Rate 38.7 mL/min (>60) Glucose Level 147 MG/DL (74-106) H Calcium Level 8.3 MG/DL (8.5-10.1) L Phosphorus Level 3.1 MG/DL (2.5-4.9) Magnesium Level 2.1 MG/DL (1.8-2.4) Total Bilirubin 0.7 MG/DL (0.2-1.0) Aspartate Amino Transf (AST/SGOT) 83 U/L (15-37) H Alanine Aminotransferase (ALT/SGPT) 86 U/L (12-78) H Alkaline Phosphatase 61 U/L (46-116) C-Reactive Protein, Quantitative 1.3 mg/dL (0.00-0.90) H Pro-B-Type Natriuretic Peptide 6073 pg/mL (0-125) H Total Protein 5.0 G/DL (6.4-8.2) L Albumin 1.4 G/DL (3.4-5.0) L Globulin 3.6 g/dL Albumin/Globulin Ratio 0.4 (1.0-2.7) L Current Medications Medications (Trade) Dose Ordered Sig/Katy Route PRN Reason Start Time Stop Time Status Last Admin Dose Admin Acetaminophen (Tylenol) 650 mg Q4H PRN GT FEVER 06/03/20 11:45 07/03/20 11:44 06/06/20 23:15 Chlorhexidine Gluconate (Alla-Hex 2%) 1 applic DAILY@1999 TOPIC 06/08/20 20:00 09/06/20 19:59 06/13/20 20:07 Clotrimazole (Lotrimin) 1 applic Q12HR TOPIC 06/07/20 13:00 09/05/20 12:59 06/14/20 08:31 Dextrose 500 ml @ 500 mls/hr ONCE IV 06/14/20 10:00 06/14/20 12:00 06/14/20 10:17 Dextrose (Dextrose 50%) 25 ml Q30M PRN IV Hypoglycemia 06/03/20 11:30 08/28/20 11:29 Dextrose (Dextrose 50%) 50 ml Q30M PRN IV Hypoglycemia 06/03/20 11:30 08/28/20 11:29 Dopamine HCl/ Dextrose 250 ml @ 0 mls/hr Q24H IV 06/12/20 11:15 09/10/20 11:14 06/13/20 14:00 Hydrocortisone (Solu-CORTEF) 100 mg EVERY 8 HOURS IV 06/07/20 14:00 09/05/20 13:59 06/14/20 05:23 Levothyroxine Sodium (Synthroid) 75 mcg DAILY GT 06/04/20 09:00 06/30/20 08:59 06/14/20 08:31 Lorazepam (Ativan 2mg/ml 1ml) 2 mg Q2H PRN IV For Anxiety 06/12/20 17:30 06/19/20 17:29 06/12/20 17:37 Meropenem 1 gm/ Sodium Chloride 55 ml @ 110 mls/hr Q8H IVPB 06/14/20 12:00 06/19/20 11:59 06/14/20 11:29 Midodrine (Pro-Amatine) 10 mg Q8HR GT 06/05/20 14:00 09/03/20 13:59 06/14/20 05:23 Norepinephrine Bitartrate 16 mg/ Dextrose 500 ml @ 0 mls/hr Q24H IV 06/08/20 07:45 07/07/20 12:59 06/12/20 08:43 Ondansetron HCl (Zofran) 4 mg Q6H PRN IVP Nausea & Vomiting 06/03/20 12:00 06/29/20 11:59 Pantoprazole (Protonix) 40 mg DAILY IV 06/04/20 09:00 06/30/20 08:59 06/14/20 08:31 Phenylephrine HCl 50 mg/Dextrose 250 ml @ 0 mls/hr Q24H PRN IV For hypotension 06/06/20 17:45 07/06/20 17:44 06/08/20 01:49 Polyethylene Glycol (Miralax) 17 gm DAILYPRN PRN GT Constipation 06/03/20 12:00 06/29/20 11:59 Potassium Chloride 100 ml @ 50 mls/hr ONCE ONCE IVPB 06/14/20 10:00 06/14/20 11:59 06/14/20 10:15 Valproic Acid (Depakene) 500 mg EVERY 8 HOURS GT 06/03/20 14:00 06/29/20 21:59 06/14/20 05:23 Chencho Corley MD Jun 14, 2020 11:55
--- NOTE | 2020-06-14 12:10 | Nephrology Progress Note ---
Assessment/Plan Problem List: (1) LEANN (acute kidney injury) (2) Respiratory failure requiring intubation (3) Down's syndrome (4) Seizure disorder (5) Hypothyroidism Assessment Acute renal failure, likely due to hypotension Acute respiratory distress, hypoxia Seizure disorder Hypothyroidism Down syndrome Full code Fluid challenge with IV fluids and albumin Midodrine for BP above 100 systolic Check TSH level Check Correct level Monitor renal parameters Urine studies Per orders Plan June 14: Electrolyte abnormalities addressed. Serum creatinine lower. Continue per current management. June 13: Status unchanged. Lab reviewed. Serum potassium 2.7. IV potassium chloride ordered. Serum creatinine low at 1.6 stable. Blood pressure 90s systolic June 12: Status quo. Labs reviewed. Renal parameters stable. Serum creatinine down to 1.6. Medication list reviewed. Continues to be on midodrine. Continue per consultants. June 11: Status quo. Labs reviewed. Electrolytes adjusted. Serum creatinine down to 1.8. Continue per consultants. June 10: Status quo. Labs reviewed. Phosphorus supplement IV given. Serum creatinine 2. Continue per consultants. June 09: Requires less pressors. Albumin bolus given. 1 dose of Lasix IV ordered as the patient severely edematous. Patient serum albumin is very low. Continue per consultants. June 08: Continues to be intubated. Labs reviewed. Serum creatinine 1.9 unchanged. Blood pressure more stable. Off 1 of the pressors. Continue to monitor renal parameters. Continue per consultants. Patient now on hydrocortisone 100 mg every 8 hours. Will decrease IV fluid. Normal saline down to 50 cc an hour. June 07: Intubated. Labs reviewed. Creatinine 1.9 unchanged. Continue same treatment plan. Per consultants. Overall poor prognosis since the patient remains on pressors and her pulmonary status is worsening. June 06: Remains intubated. Labs reviewed. Creatinine 1.9. Blood pressure systolic 90s. Continue per consultants. June 05: Remains intubated. Labs reviewed. Serum creatinine lower to 2. Vancomycin level lower. Remains hypotensive on pressors. Will increase midodrine to 10 mg every 8 hours. Continue per consultants. Continue to monitor renal parameters. June 04: Patient now in ICU. Intubated. On pressors. Labs reviewed. Will increase midodrine. Aim to keep blood pressure over 100 systolic. Will give albumin bolus. Will check vancomycin level which was elevated when checked previously on June 01. Will monitor renal parameters. Continue per consultants. Subjective ROS Limited/Unobtainable: Yes Objective Objective Last 24 Hour Vital Signs Date Time Temp Pulse Resp B/P (MAP) Pulse Ox O2 Delivery O2 Flow Rate FiO2 06/14/20 11:30 67 26 104/44 (64) 100 06/14/20 11:01 63 26 100 06/14/20 11:00 61 26 107/47 (67) 100 06/14/20 10:30 61 26 96/44 (61) 100 06/14/20 10:00 59 26 104/46 (65) 100 06/14/20 09:30 62 26 98/44 (62) 100 06/14/20 09:00 59 26 102/46 (64) 100 06/14/20 08:30 59 26 100 06/14/20 08:30 59 26 101/51 (68) 100 06/14/20 08:00 98.2 61 26 104/48 (66) 100 06/14/20 08:00 Mechanical Ventilator Mechanical Ventilator 06/14/20 08:00 100 06/14/20 07:45 99/45 06/14/20 07:30 59 26 103/47 (65) 100 06/14/20 07:11 59 26 100 06/14/20 07:00 99/45 06/14/20 07:00 57 26 99/45 (63) 100 06/14/20 06:30 58 26 119/73 (88) 100 06/14/20 06:00 56 26 104/45 (64) 100 06/14/20 05:30 61 26 97/46 (63) 100 06/14/20 05:05 56 26 100 06/14/20 05:00 66 26 108/47 (67) 100 06/14/20 05:00 108/47 06/14/20 04:30 55 26 98/47 (64) 100 06/14/20 04:00 55 06/14/20 04:00 100 06/14/20 04:00 98.5 57 26 97/48 (64) 100 06/14/20 04:00 97/48 06/14/20 04:00 Mechanical Ventilator Mechanical Ventilator 06/14/20 03:30 64 25 109/50 (69) 100 06/14/20 03:00 55 26 107/47 (67) 100 06/14/20 03:00 107/47 06/14/20 02:39 52 26 100 06/14/20 02:30 54 26 106/45 (65) 100 06/14/20 02:00 57 26 105/49 (67) 100 06/14/20 02:00 105/49 06/14/20 01:30 52 26 105/47 (66) 100 06/14/20 01:30 51 26 100 06/14/20 01:00 101/45 06/14/20 01:00 57 26 101/45 (63) 100 06/14/20 00:30 57 26 97/50 (66) 100 06/14/20 00:19 58 06/14/20 00:00 99/50 06/14/20 00:00 98.2 63 21 99/50 (66) 100 06/14/20 00:00 Mechanical Ventilator Mechanical Ventilator 06/14/20 00:00 100 06/13/20 23:30 66 26 100 06/13/20 23:30 84 20 87/57 (67) 97 06/13/20 23:00 98/50 06/13/20 23:00 56 25 98/50 (66) 100 06/13/20 22:30 66 22 92/50 (64) 94 06/13/20 22:00 57 26 91/48 (62) 100 06/13/20 22:00 91/48 06/13/20 21:30 59 26 94/45 (61) 100 06/13/20 21:00 93/53 06/13/20 21:00 61 26 93/53 (66) 100 06/13/20 20:45 55 26 100 06/13/20 20:30 60 25 93/48 (63) 99 06/13/20 20:00 Mechanical Ventilator Mechanical Ventilator 06/13/20 20:00 98.4 61 26 98/45 (62) 100 06/13/20 20:00 98/45 06/13/20 20:00 100 06/13/20 19:30 56 26 100 06/13/20 19:30 53 26 91/47 (62) 100 06/13/20 19:14 52 06/13/20 19:00 102/52 06/13/20 19:00 53 26 102/52 (69) 100 9/5/20 18:28 59 26 103/55 (71) 100 06/13/20 18:00 54 26 101/45 (63) 100 06/13/20 18:00 101/45 06/13/20 17:30 55 26 93/48 (63) 100 06/13/20 17:00 93/48 06/13/20 17:00 56 26 89/45 (60) 100 06/13/20 16:41 60 26 100 06/13/20 16:30 65 26 93/44 (60) 100 06/13/20 16:00 100 06/13/20 16:00 Mechanical Ventilator Mechanical Ventilator 06/13/20 16:00 63 06/13/20 16:00 89/45 06/13/20 16:00 99.2 64 26 84/44 (57) 100 06/13/20 15:30 63 26 119/60 (79) 100 06/13/20 15:00 72 26 93/40 (57) 100 06/13/20 15:00 93/40 06/13/20 14:30 61 26 100 06/13/20 14:30 68 26 99/38 (58) 100 06/13/20 14:00 96/41 06/13/20 14:00 99/38 06/13/20 14:00 66 26 96/41 (59) 100 06/13/20 13:30 64 26 92/42 (59) 100 06/13/20 13:00 98/44 06/13/20 13:00 57 26 98/44 (62) 100 06/13/20 12:52 54 26 100 06/13/20 12:30 55 26 89/49 (62) 100 Intake and Output 06/13/20 06/14/20 19:00 07:00 Intake Total 751.01195 ml 863.275 ml Output Total 390 ml 685 ml Balance 361.66447 ml 178.275 ml Free Water 120 ml IV Total 251.04078 ml 143.275 ml Tube Feeding 500 ml 600 ml Output Urine Total 390 ml 685 ml # Bowel Movements 1 1 Laboratory Tests 06/14/20 04:00: White Blood Count 14.9H, Red Blood Count 2.44L, Hemoglobin 8.3L, Hematocrit 24.3L, Mean Corpuscular Volume 100H, Mean Corpuscular Hemoglobin 34.0H, Mean Corpuscular Hemoglobin Concent 34.1, Red Cell Distribution Width 14.2, Platelet Count 58L, Mean Platelet Volume 8.0, Neutrophils (%) (Auto) , Lymphocytes (%) ( Auto) , Monocytes (%) (Auto) , Eosinophils (%) (Auto) , Basophils (%) (Auto) , Differential Total Cells Counted 100, Neutrophils % (Manual) 80H, Lymphocytes % (Manual) 10L, Monocytes % (Manual) 10, Eosinophils % (Manual) 0, Basophils % ( Manual) 0, Band Neutrophils 0, Platelet Estimate DecreasedL, Platelet Morphology Normal, Hypochromasia 2+, Anisocytosis 1+, Macrocytosis 1+, Sodium Level 150H, Potassium Level 3.4L, Chloride Level 117H, Carbon Dioxide Level 22, Anion Gap 11, Blood Urea Nitrogen 45H, Creatinine 1.4H, Estimat Glomerular Filtration Rate 38.7, Glucose Level 147H, Calcium Level 8.3L, Phosphorus Level 3.1, Magnesium Level 2.1, Total Bilirubin 0.7, Aspartate Amino Transf (AST/SGOT ) 83H, Alanine Aminotransferase (ALT/SGPT) 86H, Alkaline Phosphatase 61, C- Reactive Protein, Quantitative 1.3H, Pro-B-Type Natriuretic Peptide 6073H, Total Protein 5.0L, Albumin 1.4L, Globulin 3.6, Albumin/Globulin Ratio 0.4L Height (Feet): 5 Height (Inches): 3.00 Weight (Pounds): 172 General Appearance: no apparent distress EENT: other - Connected to ventilator Cardiovascular: normal rate - Rate 60s Respiratory/Chest: decreased breath sounds Abdomen: distended Keron Pitt MD Jun 14, 2020 12:10
--- NOTE | 2020-06-14 12:25 | NUR ---
NURSE NOTES: Seen by Dr. Corley and assessed patient. He said he ordered blood culture. Will follow up.
--- NOTE | 2020-06-14 13:12 | NUR ---
RD ASSESSMENT & RECOMMENDATIONS SEE CARE ACTIVITY FOR COMPLETE ASSESSMENT DAILY ESTIMATED NEEDS: Needs based on CRITICAL CARE, 50kg 22-27 kcals/kg 2366-6226 total kcals 1.25-2 g protein/kg 63-100 g total protein 25-30 mL/kg 4971-7721 total fluid mLs NUTRITION DIAGNOSIS: Swallowing difficulty r/t dysphagia as evidenced by pt w/ Downs Syndrome, PEG dep for all nutritional needs, now intubated, pressor support, ICU status. CURRENT TF: Jevity 1.2 @50ml/hr x 22 hrs ENTERAL NUTRITION RECOMMENDATIONS: VITAL AF 1.2 @ 50ml/hr x22 hrs to provide 1100ml, 1320 kcal, 83g pro, 892ml free H2O - Rec VITAL AF 1.2 for critical care, high pro needs, possible improved tolerance. - Initiate @ 20ml/hr x 6hrs, advance as tolerated to goal w/ hemodynamic stability. - Hold TF 1 hr before and after synthroid meds. - Flush per , HOB over 30 degrees. WITHOUT HEMODYANAMIC STABILITY, rec trophic feeds of Vital AF 1.2 @ 10ml/hr ADDITIONAL RECOMMENDATIONS: 1) Ht of 61 inches per SNF; recalibrate bed scale for accurate CBW 2) Monitor BG closely w/ Solucortef, need for NISS 3) Monitor hemodynamic stability: on pressors x 2, titrating down -> rec trophic feeds while not hemodynamically stable 4) Wound healing: Continue Vit C 250mg QD + [place] BID 5) Monitor lytes, replete as needed 6) Rec prokinetics w/ continued residuals.
--- NOTE | 2020-06-14 13:42 | NUR ---
NURSE NOTES: Seen by Dr. Mandel and assessed patient. No new orders at this time.
--- NOTE | 2020-06-14 15:05 | NUR ---
NURSE NOTES: Collected blood for culture and sent to lab.
--- NOTE | 2020-06-14 16:02 | NUR ---
NURSE NOTES: Seen by Dr. Allred and assessed patient. No new order at this time.
--- NOTE | 2020-06-14 16:19 | Pulmonolgy Critical Care Note ---
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 with: nurses, consultants, 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 - Objective Last 24 Hour Vital Signs Date Time Temp Pulse Resp B/P (MAP) Pulse Ox O2 Delivery O2 Flow Rate FiO2 06/14/20 15:00 104/43 06/14/20 15:00 63 26 107/92 (97) 100 06/14/20 14:51 61 26 100 06/14/20 14:30 78 26 92/40 (57) 98 06/14/20 14:00 71 26 96/41 (59) 99 06/14/20 14:00 96/41 06/14/20 13:30 72 27 91/44 (60) 100 06/14/20 13:00 98/45 06/14/20 13:00 68 24 98/45 (62) 100 06/14/20 12:43 67 26 100 06/14/20 12:30 61 26 99/44 (62) 100 06/14/20 12:00 Mechanical Ventilator Mechanical Ventilator 06/14/20 12:00 100 06/14/20 12:00 102/43 06/14/20 12:00 98.4 70 25 102/43 (62) 100 06/14/20 11:30 67 26 104/44 (64) 100 06/14/20 11:01 63 26 100 06/14/20 11:00 61 26 107/47 (67) 100 06/14/20 11:00 107/47 06/14/20 10:30 61 26 96/44 (61) 100 06/14/20 10:00 104/46 06/14/20 10:00 59 26 104/46 (65) 100 06/14/20 09:30 62 26 98/44 (62) 100 06/14/20 09:00 59 26 102/46 (64) 100 06/14/20 09:00 102/46 06/14/20 08:30 59 26 100 06/14/20 08:30 59 26 101/51 (68) 100 06/14/20 08:00 98.2 61 26 104/48 (66) 100 06/14/20 08:00 104/48 06/14/20 08:00 Mechanical Ventilator Mechanical Ventilator 06/14/20 08:00 100 06/14/20 07:45 99/45 06/14/20 07:30 59 26 103/47 (65) 100 06/14/20 07:11 59 26 100 06/14/20 07:00 99/45 06/14/20 07:00 57 26 99/45 (63) 100 06/14/20 06:30 58 26 119/73 (88) 100 06/14/20 06:00 56 26 104/45 (64) 100 06/14/20 05:30 61 26 97/46 (63) 100 06/14/20 05:05 56 26 100 06/14/20 05:00 66 26 108/47 (67) 100 06/14/20 05:00 108/47 06/14/20 04:30 55 26 98/47 (64) 100 06/14/20 04:00 55 06/14/20 04:00 100 06/14/20 04:00 98.5 57 26 97/48 (64) 100 06/14/20 04:00 97/48 06/14/20 04:00 Mechanical Ventilator Mechanical Ventilator 06/14/20 03:30 64 25 109/50 (69) 100 06/14/20 03:00 55 26 107/47 (67) 100 06/14/20 03:00 107/47 06/14/20 02:39 52 26 100 06/14/20 02:30 54 26 106/45 (65) 100 06/14/20 02:00 57 26 105/49 (67) 100 06/14/20 02:00 105/49 06/14/20 01:30 52 26 105/47 (66) 100 06/14/20 01:30 51 26 100 06/14/20 01:00 101/45 06/14/20 01:00 57 26 101/45 (63) 100 06/14/20 00:30 57 26 97/50 (66) 100 06/14/20 00:19 58 06/14/20 00:00 99/50 06/14/20 00:00 98.2 63 21 99/50 (66) 100 06/14/20 00:00 Mechanical Ventilator Mechanical Ventilator 06/14/20 00:00 100 06/13/20 23:30 66 26 100 06/13/20 23:30 84 20 87/57 (67) 97 06/13/20 23:00 98/50 06/13/20 23:00 56 25 98/50 (66) 100 06/13/20 22:30 66 22 92/50 (64) 94 06/13/20 22:00 57 26 91/48 (62) 100 06/13/20 22:00 91/48 06/13/20 21:30 59 26 94/45 (61) 100 06/13/20 21:00 93/53 06/13/20 21:00 61 26 93/53 (66) 100 06/13/20 20:45 55 26 100 06/13/20 20:30 60 25 93/48 (63) 99 06/13/20 20:00 Mechanical Ventilator Mechanical Ventilator 06/13/20 20:00 98.4 61 26 98/45 (62) 100 06/13/20 20:00 98/45 06/13/20 20:00 100 06/13/20 19:30 56 26 100 06/13/20 19:30 53 26 91/47 (62) 100 06/13/20 19:14 52 06/13/20 19:00 102/52 06/13/20 19:00 53 26 102/52 (69) 100 06/13/20 18:28 59 26 103/55 (71) 100 06/13/20 18:00 54 26 101/45 (63) 100 06/13/20 18:00 101/45 06/13/20 17:30 55 26 93/48 (63) 100 06/13/20 17:00 93/48 06/13/20 17:00 56 26 89/45 (60) 100 06/13/20 16:41 60 26 100 06/13/20 16:30 65 26 93/44 (60) 100 Status: sedated Condition: critical HEENT: atraumatic Neck: full ROM Heart: HR/BP stable, HR/BP unstable Abdomen: non-tender Accucheck: 131 Critical Care - Subjective ROS Limited/Unobtainable: Yes Condition: critical EKG Rhythm: Sinus Rhythm FI02: 100 Vent Support Breath Rate: 26 Vent Support Mode: AC Vent Tidal Volume: 500 Sputum Amount: Scant PEEP: 10.0 PIP: 39 Tube Feeding Amount: 50 I&O: Intake and Output 06/13/20 06/14/20 19:00 07:00 Intake Total 751.42808 ml 863.275 ml Output Total 390 ml 685 ml Balance 361.60916 ml 178.275 ml Free Water 120 ml IV Total 251.67966 ml 143.275 ml Tube Feeding 500 ml 600 ml Output Urine Total 390 ml 685 ml # Bowel Movements 1 1 ET-Tube: 7.5 ET Position: 22 Labs: Laboratory Tests Test 06/14/20 04:00 White Blood Count 14.9 K/UL (4.8-10.8) H Red Blood Count 2.44 M/UL (4.20-5.40) L Hemoglobin 8.3 G/DL (12.0-16.0) L Hematocrit 24.3 % (37.0-47.0) L Mean Corpuscular Volume 100 FL (80-99) H Mean Corpuscular Hemoglobin 34.0 PG (27.0-31.0) H Mean Corpuscular Hemoglobin Concent 34.1 G/DL (32.0-36.0) Red Cell Distribution Width 14.2 % (11.6-14.8) Platelet Count 58 K/UL (150-450) L Mean Platelet Volume 8.0 FL (6.5-10.1) Neutrophils (%) (Auto) % (45.0-75.0) Lymphocytes (%) (Auto) % (20.0-45.0) Monocytes (%) (Auto) % (1.0-10.0) Eosinophils (%) (Auto) % (0.0-3.0) Basophils (%) (Auto) % (0.0-2.0) Differential Total Cells Counted 100 Neutrophils % (Manual) 80 % (45-75) H Lymphocytes % (Manual) 10 % (20-45) L Monocytes % (Manual) 10 % (1-10) Eosinophils % (Manual) 0 % (0-3) Basophils % (Manual) 0 % (0-2) Band Neutrophils 0 % (0-8) Platelet Estimate Decreased L Platelet Morphology Normal Hypochromasia 2+ Anisocytosis 1+ Macrocytosis 1+ Sodium Level 150 MMOL/L (136-145) H Potassium Level 3.4 MMOL/L (3.5-5.1) L Chloride Level 117 MMOL/L (98-107) H Carbon Dioxide Level 22 MMOL/L (21-32) Anion Gap 11 mmol/L (5-15) Blood Urea Nitrogen 45 mg/dL (7-18) H Creatinine 1.4 MG/DL (0.55-1.30) H Estimat Glomerular Filtration Rate 38.7 mL/min (>60) Glucose Level 147 MG/DL (74-106) H Calcium Level 8.3 MG/DL (8.5-10.1) L Phosphorus Level 3.1 MG/DL (2.5-4.9) Magnesium Level 2.1 MG/DL (1.8-2.4) Total Bilirubin 0.7 MG/DL (0.2-1.0) Aspartate Amino Transf (AST/SGOT) 83 U/L (15-37) H Alanine Aminotransferase (ALT/SGPT) 86 U/L (12-78) H Alkaline Phosphatase 61 U/L (46-116) C-Reactive Protein, Quantitative 1.3 mg/dL (0.00-0.90) H Pro-B-Type Natriuretic Peptide 6073 pg/mL (0-125) H Total Protein 5.0 G/DL (6.4-8.2) L Albumin 1.4 G/DL (3.4-5.0) L Globulin 3.6 g/dL Albumin/Globulin Ratio 0.4 (1.0-2.7) L Elayne Allred MD Jun 14, 2020 16:19
--- NOTE | 2020-06-14 17:17 | Internal Med Progress Note ---
Subjective Physician Name Guillaume Hawk Attending Physician Elayne Allred MD Current Medications Medications (Trade) Dose Ordered Sig/Katy Route PRN Reason Start Time Stop Time Status Last Admin Dose Admin Acetaminophen (Tylenol) 650 mg Q4H PRN GT FEVER 06/03/20 11:45 07/03/20 11:44 06/06/20 23:15 Chlorhexidine Gluconate (Alla-Hex 2%) 1 applic DAILY@2000 TOPIC 06/08/20 20:00 09/06/20 19:59 06/13/20 20:07 Clotrimazole (Lotrimin) 1 applic Q12HR TOPIC 06/07/20 13:00 09/05/20 12:59 06/14/20 08:31 Dextrose (Dextrose 50%) 25 ml Q30M PRN IV Hypoglycemia 06/03/20 11:30 08/28/20 11:29 Dextrose (Dextrose 50%) 50 ml Q30M PRN IV Hypoglycemia 06/03/20 11:30 08/28/20 11:29 Dopamine HCl/ Dextrose 250 ml @ 0 mls/hr Q24H IV 06/12/20 11:15 09/10/20 11:14 06/13/20 14:00 Hydrocortisone (Solu-CORTEF) 100 mg EVERY 8 HOURS IV 06/07/20 14:00 09/05/20 13:59 06/14/20 13:41 Levothyroxine Sodium (Synthroid) 75 mcg DAILY GT 06/04/20 09:00 06/30/20 08:59 06/14/20 08:31 Lorazepam (Ativan 2mg/ml 1ml) 2 mg Q2H PRN IV For Anxiety 06/12/20 17:30 06/19/20 17:29 06/12/20 17:37 Meropenem 1 gm/ Sodium Chloride 55 ml @ 110 mls/hr Q8H IVPB 06/14/20 12:00 06/19/20 11:59 06/14/20 11:29 Midodrine (Pro-Amatine) 10 mg Q8HR GT 06/05/20 14:00 09/03/20 13:59 06/14/20 13:41 Norepinephrine Bitartrate 16 mg/ Dextrose 500 ml @ 0 mls/hr Q24H IV 06/08/20 07:45 07/07/20 12:59 06/12/20 08:43 Ondansetron HCl (Zofran) 4 mg Q6H PRN IVP Nausea & Vomiting 06/03/20 12:00 06/29/20 11:59 Pantoprazole (Protonix) 40 mg DAILY IV 06/04/20 09:00 06/30/20 08:59 06/14/20 08:31 Phenylephrine HCl 50 mg/Dextrose 250 ml @ 0 mls/hr Q24H PRN IV For hypotension 06/06/20 17:45 07/06/20 17:44 06/08/20 01:49 Polyethylene Glycol (Miralax) 17 gm DAILYPRN PRN GT Constipation 06/03/20 12:00 06/29/20 11:59 Valproic Acid (Depakene) 500 mg EVERY 8 HOURS GT 06/03/20 14:00 06/29/20 21:59 06/14/20 13:41 Allergies: Coded Allergies: No Known Allergies (Unverified , 10/16/18) Subjective in ICU, remained intubated on the vent, open eyes, unable to follow command. WBC : 14.9 K: 3.4. Renal function stable Objective Last Vital Signs Date Time Temp Pulse Resp B/P (MAP) Pulse Ox O2 Delivery O2 Flow Rate FiO2 06/14/20 15:00 104/43 06/14/20 15:00 63 26 100 06/14/20 14:51 100 06/14/20 12:00 Mechanical Ventilator Mechanical Ventilator 06/14/20 12:00 98.4 Laboratory Tests Test 06/14/20 04:00 White Blood Count 14.9 K/UL (4.8-10.8) H Red Blood Count 2.44 M/UL (4.20-5.40) L Hemoglobin 8.3 G/DL (12.0-16.0) L Hematocrit 24.3 % (37.0-47.0) L Mean Corpuscular Volume 100 FL (80-99) H Mean Corpuscular Hemoglobin 34.0 PG (27.0-31.0) H Mean Corpuscular Hemoglobin Concent 34.1 G/DL (32.0-36.0) Red Cell Distribution Width 14.2 % (11.6-14.8) Platelet Count 58 K/UL (150-450) L Mean Platelet Volume 8.0 FL (6.5-10.1) Neutrophils (%) (Auto) % (45.0-75.0) Lymphocytes (%) (Auto) % (20.0-45.0) Monocytes (%) (Auto) % (1.0-10.0) Eosinophils (%) (Auto) % (0.0-3.0) Basophils (%) (Auto) % (0.0-2.0) Differential Total Cells Counted 100 Neutrophils % (Manual) 80 % (45-75) H Lymphocytes % (Manual) 10 % (20-45) L Monocytes % (Manual) 10 % (1-10) Eosinophils % (Manual) 0 % (0-3) Basophils % (Manual) 0 % (0-2) Band Neutrophils 0 % (0-8) Platelet Estimate Decreased L Platelet Morphology Normal Hypochromasia 2+ Anisocytosis 1+ Macrocytosis 1+ Sodium Level 150 MMOL/L (136-145) H Potassium Level 3.4 MMOL/L (3.5-5.1) L Chloride Level 117 MMOL/L (98-107) H Carbon Dioxide Level 22 MMOL/L (21-32) Anion Gap 11 mmol/L (5-15) Blood Urea Nitrogen 45 mg/dL (7-18) H Creatinine 1.4 MG/DL (0.55-1.30) H Estimat Glomerular Filtration Rate 38.7 mL/min (>60) Glucose Level 147 MG/DL (74-106) H Calcium Level 8.3 MG/DL (8.5-10.1) L Phosphorus Level 3.1 MG/DL (2.5-4.9) Magnesium Level 2.1 MG/DL (1.8-2.4) Total Bilirubin 0.7 MG/DL (0.2-1.0) Aspartate Amino Transf (AST/SGOT) 83 U/L (15-37) H Alanine Aminotransferase (ALT/SGPT) 86 U/L (12-78) H Alkaline Phosphatase 61 U/L (46-116) C-Reactive Protein, Quantitative 1.3 mg/dL (0.00-0.90) H Pro-B-Type Natriuretic Peptide 6073 pg/mL (0-125) H Total Protein 5.0 G/DL (6.4-8.2) L Albumin 1.4 G/DL (3.4-5.0) L Globulin 3.6 g/dL Albumin/Globulin Ratio 0.4 (1.0-2.7) L Intake and Output 06/13/20 06/14/20 19:00 07:00 Intake Total 751.04641 ml 863.275 ml Output Total 390 ml 685 ml Balance 361.01399 ml 178.275 ml Free Water 120 ml IV Total 251.88856 ml 143.275 ml Tube Feeding 500 ml 600 ml Output Urine Total 390 ml 685 ml # Bowel Movements 1 1 Objective General: remain intubated, unable to follow command, open eyes. HEENT: NCAT, sclera anicteric, PERRL, ET Tube. Neck: Supple, no significant jugular venous distention, Lungs: mechanical breath sounds decreased air at the bases, no Wheeze or Rales. Heart: Regular rate and rhythm, normal S1/S2, no murmurs/gallops Abdomen: soft, not tender, not distended. + bowel sounds, Morbid Obesity, PEG site intact. Extremities: No Cyanosis , clubbing, upper extremities less edema. left upper extremity PICC line. Neuro: limited secondary to patient status, unable to follow command, bilateral upper and lower extremities contracted. Assessment/Plan Assessment/Plan Problem List: (1) HCAP (healthcare-associated pneumonia) (2) Sepsis (3) Down's syndrome (4) Dysphagia S/P PEG (5) Seizure disorder (6) Hypothyroidism (7) Acute Hypoxemic respiratory failure (8) Persistent, high grade bacteremia- r/o endocarditis (9) LEANN Plan: Tolerated tube feeding @ 50 cc/hr Follow-up with laboratory and cultures on Dopamine drip @ 2 Mcq Hydrocortisone 100 mg IV every 8 Cont Daptomycin #13(abx d #14/14) for GPC bacteremia in view of LEANN. Kcl supplements. Guillaume Hawk MD Jun 14, 2020 17:17
--- NOTE | 2020-06-14 18:01 | NUR ---
NURSE NOTES: Bed bath given. Kept dry, clean and comfortable. Still on dopamine @ 2mcg/kg/min. SBP 100s on the monitor. Will continue plan of care.
[2020-06-14] MEDS: Dyna-Hex 2% Top Sol 2oz TOPIC SCH (19:45)
[2020-06-14] MEDS: DOPamine 400mg/250ml 250 ML IV SCH (19:47)
--- NOTE | 2020-06-14 19:47 | Cardiology Progress Note ---
Assessment/Plan Assessment/Plan pneumonia, severe hypotension,on pressors, attempt to wean off Subjective Subjective The patient is more alert today and looking around Objective Last 24 Hour Vital Signs Date Time Temp Pulse Resp B/P (MAP) Pulse Ox O2 Delivery O2 Flow Rate FiO2 06/14/20 19:00 102/51 06/14/20 19:00 62 26 102/51 (68) 100 06/14/20 18:30 68 26 114/42 (66) 100 06/14/20 18:00 72 25 96/44 (61) 100 06/14/20 18:00 96/44 06/14/20 17:30 68 25 100/61 (74) 100 06/14/20 17:00 94/43 06/14/20 17:00 65 26 94/43 (60) 100 06/14/20 16:30 68 26 100 06/14/20 16:30 62 26 100/45 (63) 100 06/14/20 16:00 100 06/14/20 16:00 62 06/14/20 16:00 98.3 68 26 98/44 (62) 97 06/14/20 16:00 Mechanical Ventilator Mechanical Ventilator 06/14/20 16:00 98/44 06/14/20 15:30 62 26 99/44 (62) 98 06/14/20 15:00 104/43 06/14/20 15:00 63 26 107/92 (97) 100 06/14/20 14:51 61 26 100 06/14/20 14:30 78 26 92/40 (57) 98 06/14/20 14:00 71 26 96/41 (59) 99 06/14/20 14:00 96/41 06/14/20 13:30 72 27 91/44 (60) 100 06/14/20 13:00 98/45 06/14/20 13:00 68 24 98/45 (62) 100 06/14/20 12:43 67 26 100 06/14/20 12:30 61 26 99/44 (62) 100 06/14/20 12:00 Mechanical Ventilator Mechanical Ventilator 06/14/20 12:00 100 06/14/20 12:00 102/43 06/14/20 12:00 98.4 70 25 102/43 (62) 100 06/14/20 12:00 61 06/14/20 11:30 67 26 104/44 (64) 100 06/14/20 11:01 63 26 100 06/14/20 11:00 61 26 107/47 (67) 100 06/14/20 11:00 107/47 06/14/20 10:30 61 26 96/44 (61) 100 06/14/20 10:00 104/46 06/14/20 10:00 59 26 104/46 (65) 100 06/14/20 09:30 62 26 98/44 (62) 100 06/14/20 09:00 59 26 102/46 (64) 100 06/14/20 09:00 102/46 06/14/20 08:30 59 26 100 06/14/20 08:30 59 26 101/51 (68) 100 06/14/20 08:00 98.2 61 26 104/48 (66) 100 06/14/20 08:00 104/48 06/14/20 08:00 66 06/14/20 08:00 Mechanical Ventilator Mechanical Ventilator 06/14/20 08:00 100 06/14/20 07:45 99/45 06/14/20 07:30 59 26 103/47 (65) 100 06/14/20 07:11 59 26 100 06/14/20 07:00 99/45 06/14/20 07:00 57 26 99/45 (63) 100 06/14/20 06:30 58 26 119/73 (88) 100 06/14/20 06:00 56 26 104/45 (64) 100 06/14/20 05:30 61 26 97/46 (63) 100 06/14/20 05:05 56 26 100 06/14/20 05:00 66 26 108/47 (67) 100 06/14/20 05:00 108/47 06/14/20 04:30 55 26 98/47 (64) 100 06/14/20 04:00 55 06/14/20 04:00 100 06/14/20 04:00 98.5 57 26 97/48 (64) 100 06/14/20 04:00 97/48 06/14/20 04:00 Mechanical Ventilator Mechanical Ventilator 06/14/20 03:30 64 25 109/50 (69) 100 06/14/20 03:00 55 26 107/47 (67) 100 06/14/20 03:00 107/47 06/14/20 02:39 52 26 100 06/14/20 02:30 54 26 106/45 (65) 100 06/14/20 02:00 57 26 105/49 (67) 100 06/14/20 02:00 105/49 06/14/20 01:30 52 26 105/47 (66) 100 06/14/20 01:30 51 26 100 06/14/20 01:00 101/45 06/14/20 01:00 57 26 101/45 (63) 100 06/14/20 00:30 57 26 97/50 (66) 100 06/14/20 00:19 58 06/14/20 00:00 99/50 06/14/20 00:00 98.2 63 21 99/50 (66) 100 06/14/20 00:00 Mechanical Ventilator Mechanical Ventilator 06/14/20 00:00 100 06/13/20 23:30 66 26 100 06/13/20 23:30 84 20 87/57 (67) 97 06/13/20 23:00 98/50 06/13/20 23:00 56 25 98/50 (66) 100 06/13/20 22:30 66 22 92/50 (64) 94 06/13/20 22:00 57 26 91/48 (62) 100 06/13/20 22:00 91/48 06/13/20 21:30 59 26 94/45 (61) 100 06/13/20 21:00 93/53 06/13/20 21:00 61 26 93/53 (66) 100 06/13/20 20:45 55 26 100 06/13/20 20:30 60 25 93/48 (63) 99 06/13/20 20:00 Mechanical Ventilator Mechanical Ventilator 06/13/20 20:00 98.4 61 26 98/45 (62) 100 06/13/20 20:00 98/45 06/13/20 20:00 100 General Appearance: alert, on vent EENT: PERRL/EOMI Rhythm: SB Cardiovascular: normal rate, bradycardia Respiratory/Chest: crackles/rales Abdomen: soft Extremities: other - generalzied edema Intake and Output 06/13/20 06/14/20 19:00 07:00 Intake Total 751.11226 ml 863.275 ml Output Total 390 ml 685 ml Balance 361.76301 ml 178.275 ml Free Water 120 ml IV Total 251.34695 ml 143.275 ml Tube Feeding 500 ml 600 ml Output Urine Total 390 ml 685 ml # Bowel Movements 1 1 Laboratory Tests Test 06/14/20 04:00 White Blood Count 14.9 K/UL (4.8-10.8) H Red Blood Count 2.44 M/UL (4.20-5.40) L Hemoglobin 8.3 G/DL (12.0-16.0) L Hematocrit 24.3 % (37.0-47.0) L Mean Corpuscular Volume 100 FL (80-99) H Mean Corpuscular Hemoglobin 34.0 PG (27.0-31.0) H Mean Corpuscular Hemoglobin Concent 34.1 G/DL (32.0-36.0) Red Cell Distribution Width 14.2 % (11.6-14.8) Platelet Count 58 K/UL (150-450) L Mean Platelet Volume 8.0 FL (6.5-10.1) Neutrophils (%) (Auto) % (45.0-75.0) Lymphocytes (%) (Auto) % (20.0-45.0) Monocytes (%) (Auto) % (1.0-10.0) Eosinophils (%) (Auto) % (0.0-3.0) Basophils (%) (Auto) % (0.0-2.0) Differential Total Cells Counted 100 Neutrophils % (Manual) 80 % (45-75) H Lymphocytes % (Manual) 10 % (20-45) L Monocytes % (Manual) 10 % (1-10) Eosinophils % (Manual) 0 % (0-3) Basophils % (Manual) 0 % (0-2) Band Neutrophils 0 % (0-8) Platelet Estimate Decreased L Platelet Morphology Normal Hypochromasia 2+ Anisocytosis 1+ Macrocytosis 1+ Sodium Level 150 MMOL/L (136-145) H Potassium Level 3.4 MMOL/L (3.5-5.1) L Chloride Level 117 MMOL/L (98-107) H Carbon Dioxide Level 22 MMOL/L (21-32) Anion Gap 11 mmol/L (5-15) Blood Urea Nitrogen 45 mg/dL (7-18) H Creatinine 1.4 MG/DL (0.55-1.30) H Estimat Glomerular Filtration Rate 38.7 mL/min (>60) Glucose Level 147 MG/DL (74-106) H Calcium Level 8.3 MG/DL (8.5-10.1) L Phosphorus Level 3.1 MG/DL (2.5-4.9) Magnesium Level 2.1 MG/DL (1.8-2.4) Total Bilirubin 0.7 MG/DL (0.2-1.0) Aspartate Amino Transf (AST/SGOT) 83 U/L (15-37) H Alanine Aminotransferase (ALT/SGPT) 86 U/L (12-78) H Alkaline Phosphatase 61 U/L (46-116) C-Reactive Protein, Quantitative 1.3 mg/dL (0.00-0.90) H Pro-B-Type Natriuretic Peptide 6073 pg/mL (0-125) H Total Protein 5.0 G/DL (6.4-8.2) L Albumin 1.4 G/DL (3.4-5.0) L Globulin 3.6 g/dL Albumin/Globulin Ratio 0.4 (1.0-2.7) L Lesley Mandel MD Jun 14, 2020 19:47
--- NOTE | 2020-06-14 20:00 | NUR ---
NURSE NOTES: Received patient and report from TAI Pereira. Patient is observed resting in bed and noted to be lethargic but responsive to stimuli; withdraws to pain, opens eyes spontaneously, MARTY and noted to be tracking. Pt is currently able to follow very simple commands. No pain noted upon assessment. Pt is currently orally intubated ett size 7.5 noted to be 22 @ lip. Vent settings as follows: AC 26 TV 500 FiO2 100% PEEP 10 with an O2 saturation of 100% noted at this time. No s/sx of acute respiratory distress noted at this time, pt tolerating current vent settings well. Bilateral lower lobe breath sounds noted to be diminished upon auscultation and rhonchi noted in bilateral upper and lower lobes. Pt noted to be SR on tele monitor with a HR of 62 with no s/sx of acute cardiac distress noted. Left upper arm PICC line noted which remains asymptomatic, intact and patent. Central line dressing remains clean ,dry and intact. Dopamine currently infusing at 2 mcg/kg/min. No s/sx of adverse effects noted at this time from medication administration. G tube noted which remains intact and patent. Jevity 1.2 infusing at 50mL/hr as prescribed with no residual noted at this time. Active bowel sounds noted in all four quadrants, abdomen remains large, soft and round. Diagnostics reviewed at bedside. Skin alterations noted. Pt repositioned for comfort and safety. Fall, Aspiration, Seizure and Skin precautions observed. Pt remains resting in bed; Bed remains in the lowest position with the safety wheels engaged, call light within reach, side rails up x3 and bed alarm activated. Will continue plan of care. Will continue to monitor.
--- NOTE | 2020-06-14 21:00 | NUR ---
NURSE NOTES: Bedside assessment performed, assessed pt with a FLACC scale of 0 noted. VS obtained and remain stable at this time. Dopamine decreased and now at 1 mcg/kg/min with no adverse effects noted. All due meds given, water flush given about 60ml. SBP remains between 93-105 at this time. Will continue to monitor and titrate accordingly. Fio2 brouhght down to 85%. Respiratory status remains stable with no s/sx of acute distress noted. Pt tolerating current vent settings well. Neuro assessment remains consistent with previous physical assessment, no s/sx of seizures noted. Pt remains clean and dry. Pt repositioned for safety and comfort. Fall, Aspiration, Seizure and Skin precautions observed. Pt remains resting in bed; Bed remains in the lowest position with the safety wheels engaged, call light within reach, side rails up x3 and bed alarm activated. Will continue plan of care. Will continue to monitor.
[2020-06-15] VITALS (52 sets, daily range): BP systolic 87–128; BP diastolic 39–77
--- NOTE | 2020-06-15 00:24 | NUR ---
NURSE NOTES: Bedside assessment performed, assessed pt with a FLACC scale of 0 noted. Pt observed to be resting comfortably in bed. VS obtained and remain stable at this time. Dopamine continues to infuse at 1 mcg/kg/min with no adverse effects noted. Respiratory status remains stable with no s/sx of acute distress noted, consistent with ventilator settings at this time. Neuro assessment remains consistent with previous physical assessment, no s/sx of seizures noted. Pt remains clean and dry. Pt repositioned for safety and comfort. Fall, Aspiration, Seizure and Skin precautions observed. Pt remains resting in bed; Bed remains in the lowest position with the safety wheels engaged, call light within reach, side rails up x3 and bed alarm activated. Will continue plan of care. Will continue to monitor.
[2020-06-15] MEDS: Acetaminophen 650mg/20.3ml GT PRN (03:17)
--- NOTE | 2020-06-15 03:17 | NUR ---
NURSE NOTES: Tylenol 650mg via GT for temperature of 99.9F (ax)
--- NOTE | 2020-06-15 04:00 | NUR ---
NURSE NOTES: Bedside assessment performed, assessed pt with a FLACC scale of 0 noted. Pt observed to be resting comfortably in bed. VS obtained and remain stable at this time. Pt provided with a complete bed bath and oral care. Dopamine continues to infuse at 1 mcg/kg/min with no adverse effects noted. Blood drawn and sent to lab. Respiratory status remains stable with no s/sx of acute distress noted, consistent with ventilator settings at this time. Pt remains clean and dry. Pt repositioned for safety and comfort. Fall, Aspiration, Seizure and Skin precautions observed. Pt remains resting in bed; Bed remains in the lowest position with the safety wheels engaged, call light within reach, side rails up x3 and bed alarm activated. Will continue plan of care. Will continue to monitor.
--- NOTE | 2020-06-15 04:10 | NUR ---
NURSE NOTES: Temperature reassessment; temperature now is 99.5F ax
[2020-06-15] MEDS: Meropenem 1 GM in NS 55 ML IVPB SCH ×3 (04:26→19:54)
[2020-06-15] MEDS: Hydrocortisone 100mg Inj IV SCH ×3 (04:48→21:38)
[2020-06-15] MEDS: Valproic Acid 250mg/5ml Liquid GT SCH ×3 (04:48→21:38)
[2020-06-15] MEDS: Midodrine 10mg tab GT SCH ×3 (04:48→21:38)
[2020-06-15 05:53] LABS: HEMATOCRIT 20.9 % (37.0-47.0); MEAN CORPUSCULAR VOLUME 100 FL (80-99); PLATELET COUNT 71 K/UL (150-450); RED BLOOD COUNT 2.09 M/UL (4.20-5.40); RED CELL DISTRIBUTION WIDTH 14.9 % (11.6-14.8); WHITE BLOOD COUNT 18.8 K/UL (4.8-10.8)
[2020-06-15 06:20] LABS: ANION GAP 5 mmol/L (5-15); BLOOD UREA NITROGEN 47 mg/dL (7-18); CALCIUM 8.2 MG/DL (8.5-10.1); CARBON DIOXIDE 24 MMOL/L (21-32); CHLORIDE 119 MMOL/L (98-107); CREATININE 1.2 MG/DL (0.55-1.30); POTASSIUM 3.6 MMOL/L (3.5-5.1); SODIUM 148 MMOL/L (136-145)
--- NOTE | 2020-06-15 07:30 | NUR ---
NURSE NOTES: Pt received from TAI Hicks. Pt is awake in bed, opens eyes spontaneously and makes eye contact when called by name but unable to follow simple commands. pupils are equal and round 4 mm bilaterally with brisk rxn to light. 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 radial pulses 2+ and dorsalis pedis pulses 1+. 2+ pitting edema noted to bilat upper extremities and feet. Temp 99.4 F ax. Pt is mechanically ventilated with a 7.5 ETT noted 22 cm at the lip line with following settings: AC 26 TV 500 FiO2 80% Peep 10. All lung lobes sound diminished upon auscultation. Abd appears slightly distended and firm with active bowel sounds to all quadrants. Pt has a GT clamped at this time for 0900 Synthroid administration. Will resume 1 hr after administration. F/C noted draining yellow, clear urine. Skin alterations noted. Pt on CACHORRO mattress. Pt has a JODY PICC with dry and intact dressing running dopamine gtt at 1 mcg/kg/min. Bed in lowest position, alarm on, side rails up x 2 and padded per seizure precaution. Call light within reach. Will continue to monitor pt and f/u with Dr Allred regarding Hgb and possible order for ABG.
[2020-06-15] MEDS: Norepinephrine Bitartrate 16 MG in D5W 500ml 484 ML IV SCH (07:45)
[2020-06-15] MEDS: Pantoprazole Inj IV SCH (08:51)
--- NOTE | 2020-06-15 09:53 | Nephrology Progress Note ---
Assessment/Plan Problem List: (1) LEANN (acute kidney injury) (2) Respiratory failure requiring intubation (3) Down's syndrome (4) Seizure disorder (5) Hypothyroidism Assessment Acute renal failure, likely due to hypotension Acute respiratory distress, hypoxia Seizure disorder Hypothyroidism Down syndrome Full code Fluid challenge with IV fluids and albumin Midodrine for BP above 100 systolic Check TSH level Check Correct level Monitor renal parameters Urine studies Per orders Plan June 15: Status quo. Overall condition poor. Very low albumin. Edematous. Hypotensive. Hemoglobin lower. Anemia work-up ordered. I favor transfusion 2 units of packed RBCs. Patient remains full code. I favor supportive care only. Will discuss. June 14: Electrolyte abnormalities addressed. Serum creatinine lower. Continue per current management. June 13: Status unchanged. Lab reviewed. Serum potassium 2.7. IV potassium chloride ordered. Serum creatinine low at 1.6 stable. Blood pressure 90s systolic June 12: Status quo. Labs reviewed. Renal parameters stable. Serum creatinine down to 1.6. Medication list reviewed. Continues to be on midodrine. Continue per consultants. June 11: Status quo. Labs reviewed. Electrolytes adjusted. Serum creatinine down to 1.8. Continue per consultants. June 10: Status quo. Labs reviewed. Phosphorus supplement IV given. Serum creatinine 2. Continue per consultants. June 09: Requires less pressors. Albumin bolus given. 1 dose of Lasix IV ordered as the patient severely edematous. Patient serum albumin is very low. Continue per consultants. June 08: Continues to be intubated. Labs reviewed. Serum creatinine 1.9 unchanged. Blood pressure more stable. Off 1 of the pressors. Continue to monitor renal parameters. Continue per consultants. Patient now on hydrocortisone 100 mg every 8 hours. Will decrease IV fluid. Normal saline down to 50 cc an hour. June 07: Intubated. Labs reviewed. Creatinine 1.9 unchanged. Continue same treatment plan. Per consultants. Overall poor prognosis since the patient remains on pressors and her pulmonary status is worsening. June 06: Remains intubated. Labs reviewed. Creatinine 1.9. Blood pressure systolic 90s. Continue per consultants. June 05: Remains intubated. Labs reviewed. Serum creatinine lower to 2. Vancomycin level lower. Remains hypotensive on pressors. Will increase midodrine to 10 mg every 8 hours. Continue per consultants. Continue to monitor renal parameters. June 04: Patient now in ICU. Intubated. On pressors. Labs reviewed. Will increase midodrine. Aim to keep blood pressure over 100 systolic. Will give albumin bolus. Will check vancomycin level which was elevated when checked previously on June 01. Will monitor renal parameters. Continue per consultants. Subjective ROS Limited/Unobtainable: Yes Objective Objective Last 24 Hour Vital Signs Date Time Temp Pulse Resp B/P (MAP) Pulse Ox O2 Delivery O2 Flow Rate FiO2 06/15/20 09:00 99/47 06/15/20 09:00 76 26 99/47 (64) 93 06/15/20 08:30 69 26 101/46 (64) 94 06/15/20 08:00 80 06/15/20 08:00 104/55 06/15/20 08:00 99.4 65 26 104/55 (71) 94 06/15/20 07:45 70 26 104/53 (70) 94 06/15/20 07:45 104/53 06/15/20 07:30 69 26 98/51 (67) 94 06/15/20 07:10 67 26 80 06/15/20 07:00 69 26 93/48 (63) 93 06/15/20 07:00 93/48 06/15/20 06:45 62 26 95/48 (64) 93 06/15/20 06:30 66 26 96/50 (65) 92 06/15/20 06:00 67 26 102/50 (67) 93 06/15/20 06:00 99/52 06/15/20 05:30 78 28 95/46 (62) 94 06/15/20 05:15 71 26 80 06/15/20 05:00 95/50 06/15/20 05:00 67 27 95/51 (66) 95 06/15/20 04:00 99.5 84 29 97/56 (70) 97 06/15/20 04:00 Mechanical Ventilator Mechanical Ventilator 06/15/20 04:00 65 06/15/20 04:00 97/56 06/15/20 04:00 80 06/15/20 03:54 78 30 70 06/15/20 03:47 99.7 06/15/20 03:30 72 27 91/48 (62) 91 06/15/20 03:00 99.9 85 24 92/49 (63) 96 06/15/20 03:00 92/49 06/15/20 02:30 64 26 96/43 (60) 93 06/15/20 02:00 66 26 90/39 (56) 93 06/15/20 02:00 90/39 06/15/20 01:30 64 26 92/43 (59) 94 06/15/20 01:11 63 26 60 06/15/20 01:00 93/41 06/15/20 01:00 64 26 93/41 (58) 94 06/15/20 00:30 65 26 92/43 (59) 95 06/15/20 00:15 66 26 97/42 (60) 97 06/15/20 00:00 Mechanical Ventilator Mechanical Ventilator 06/15/20 00:00 70 06/15/20 00:00 98.7 68 26 97/41 (59) 96 06/15/20 00:00 97/42 06/15/20 00:00 61 06/14/20 23:48 80 26 70 06/14/20 23:45 79 26 89/40 (56) 95 06/14/20 23:30 81 26 93/47 (62) 97 06/14/20 23:15 68 26 103/44 (63) 98 06/14/20 23:00 75 24 99/51 (67) 98 06/14/20 23:00 93/47 06/14/20 22:45 72 26 102/44 (63) 98 06/14/20 22:30 67 26 98/45 (62) 98 06/14/20 22:00 64 26 111/59 (76) 100 06/14/20 21:52 60 26 100 20 21:45 61 26 108/47 (67) 99 06/14/20 21:30 65 26 111/54 (73) 100 06/14/20 21:15 62 26 102/48 (66) 99 06/14/20 21:00 64 26 105/47 (66) 100 20 21:00 111/59 06/14/20 20:30 63 26 104/52 (69) 100 06/14/20 20:00 100 06/14/20 20:00 64 20 20:00 108/56 9/6/20 20:00 105/47 9/6/20 20:00 99.0 61 26 108/46 (66) 100 06/14/20 20:00 Mechanical Ventilator Mechanical Ventilator 06/14/20 19:56 63 26 100 06/14/20 19:47 102/51 06/14/20 19:30 70 24 96/47 (63) 100 06/14/20 19:00 102/51 06/14/20 19:00 62 26 102/51 (68) 100 06/14/20 18:30 68 26 114/42 (66) 100 06/14/20 18:00 72 25 96/44 (61) 100 06/14/20 18:00 96/44 06/14/20 17:30 68 25 100/61 (74) 100 06/14/20 17:00 94/43 06/14/20 17:00 65 26 94/43 (60) 100 06/14/20 16:30 68 26 100 06/14/20 16:30 62 26 100/45 (63) 100 06/14/20 16:00 100 06/14/20 16:00 62 06/14/20 16:00 98.3 68 26 98/44 (62) 97 06/14/20 16:00 Mechanical Ventilator Mechanical Ventilator 06/14/20 16:00 98/44 06/14/20 15:30 62 26 99/44 (62) 98 06/14/20 15:00 104/43 06/14/20 15:00 63 26 107/92 (97) 100 06/14/20 14:51 61 26 100 06/14/20 14:30 78 26 92/40 (57) 98 06/14/20 14:00 71 26 96/41 (59) 99 06/14/20 14:00 96/41 06/14/20 13:30 72 27 91/44 (60) 100 06/14/20 13:00 98/45 06/14/20 13:00 68 24 98/45 (62) 100 06/14/20 12:43 67 26 100 06/14/20 12:30 61 26 99/44 (62) 100 06/14/20 12:00 Mechanical Ventilator Mechanical Ventilator 06/14/20 12:00 100 06/14/20 12:00 102/43 06/14/20 12:00 98.4 70 25 102/43 (62) 100 06/14/20 12:00 61 06/14/20 11:30 67 26 104/44 (64) 100 06/14/20 11:01 63 26 100 06/14/20 11:00 61 26 107/47 (67) 100 06/14/20 11:00 107/47 06/14/20 10:30 61 26 96/44 (61) 100 06/14/20 10:00 104/46 06/14/20 10:00 59 26 104/46 (65) 100 Intake and Output 06/14/20 06/15/20 19:00 07:00 Intake Total 1211.300 ml 882.168 ml Output Total 755 ml 1000 ml Balance 456.300 ml -117.832 ml Free Water 110 ml 120 ml IV Total 651.300 ml 162.168 ml Tube Feeding 450 ml 600 ml Output Urine Total 755 ml 1000 ml Current Medications Medications (Trade) Dose Ordered Sig/Katy Route PRN Reason Start Time Stop Time Status Last Admin Dose Admin Acetaminophen (Tylenol) 650 mg Q4H PRN GT FEVER 06/03/20 11:45 07/03/20 11:44 06/15/20 03:17 Chlorhexidine Gluconate (Alla-Hex 2%) 1 applic DAILY@1999 TOPIC 06/08/20 20:00 09/06/20 19:59 06/14/20 19:45 Clotrimazole (Lotrimin) 1 applic Q12HR TOPIC 06/07/20 13:00 09/05/20 12:59 06/15/20 09:02 Dextrose (Dextrose 50%) 25 ml Q30M PRN IV Hypoglycemia 06/03/20 11:30 08/28/20 11:29 Dextrose (Dextrose 50%) 50 ml Q30M PRN IV Hypoglycemia 06/03/20 11:30 08/28/20 11:29 Dopamine HCl/ Dextrose 250 ml @ 0 mls/hr Q24H IV 06/12/20 11:15 09/10/20 11:14 06/14/20 19:47 Hydrocortisone (Solu-CORTEF) 100 mg EVERY 8 HOURS IV 06/07/20 14:00 09/05/20 13:59 06/15/20 04:48 Levothyroxine Sodium (Synthroid) 75 mcg DAILY GT 06/04/20 09:00 06/30/20 08:59 06/15/20 08:51 Lorazepam (Ativan 2mg/ml 1ml) 2 mg Q2H PRN IV For Anxiety 06/12/20 17:30 06/19/20 17:29 06/12/20 17:37 Meropenem 1 gm/ Sodium Chloride 55 ml @ 110 mls/hr Q8H IVPB 06/14/20 12:00 06/19/20 11:59 06/15/20 04:26 Midodrine (Pro-Amatine) 10 mg Q8HR GT 06/05/20 14:00 09/03/20 13:59 06/15/20 04:48 Norepinephrine Bitartrate 16 mg/ Dextrose 500 ml @ 0 mls/hr Q24H IV 06/08/20 07:45 07/07/20 12:59 06/12/20 08:43 Ondansetron HCl (Zofran) 4 mg Q6H PRN IVP Nausea & Vomiting 06/03/20 12:00 06/29/20 11:59 Pantoprazole (Protonix) 40 mg DAILY IV 06/04/20 09:00 06/30/20 08:59 06/15/20 08:51 Phenylephrine HCl 50 mg/Dextrose 250 ml @ 0 mls/hr Q24H PRN IV For hypotension 06/06/20 17:45 07/06/20 17:44 06/08/20 01:49 Polyethylene Glycol (Miralax) 17 gm DAILYPRN PRN GT Constipation 06/03/20 12:00 06/29/20 11:59 Valproic Acid (Depakene) 500 mg EVERY 8 HOURS GT 06/03/20 14:00 06/29/20 21:59 06/15/20 04:48 Laboratory Tests 06/15/20 04:45: White Blood Count 18.8H, Red Blood Count 2.09L, Hemoglobin 7.0L, Hematocrit 20.9L, Mean Corpuscular Volume 100H, Mean Corpuscular Hemoglobin 33.3H, Mean Corpuscular Hemoglobin Concent 33.3, Red Cell Distribution Width 14.9H, Platelet Count 71L, Mean Platelet Volume 9.1, Neutrophils (%) (Auto) , Lymphocytes (%) (Auto) , Monocytes (%) (Auto) , Eosinophils (%) (Auto) , Basophils (%) (Auto) , Neutrophils % (Manual) [Pending], Lymphocytes % (Manual) [Pending], Platelet Estimate [Pending], Platelet Morphology [Pending], Sodium Level 148H, Potassium Level 3.6, Chloride Level 119H, Carbon Dioxide Level 24, Anion Gap 5, Blood Urea Nitrogen 47H, Creatinine 1.2, Estimat Glomerular Filtration Rate 46.2, Glucose Level 129H, Calcium Level 8.2L Height (Feet): 5 Height (Inches): 3.00 Weight (Pounds): 172 General Appearance: no apparent distress EENT: other - On ventilator Cardiovascular: normal rate Respiratory/Chest: decreased breath sounds Abdomen: distended Extremities: other - Edematous Keron Pitt MD Jun 15, 2020 09:53
--- NOTE | 2020-06-15 10:00 | NUR ---
NURSE NOTES: Dr Pitt assessing pt at bedside - all labs reviewed for today - discussed Hgb level - will f/u with Dr Allred for further evaluation. Pt repositioned in bed, no acute distress noted at this time. Will continue to monitor.
--- NOTE | 2020-06-15 11:17 | Infectious Diseases Prog Note ---
Assessment/Plan ASSESSMENT: sp code blue 06/03 Septic Shock; SP Fever, SP Leukocytosis; SP -06/03 u/a no pyuria Pneumonia.- COVID 19 neg x3 Acute hypoxic resp failure on VM> NRB 15l 100%; hypoxic on ABG> now VDRF 06/03 - Fio2 80% >100% 06/05> 60% 06/09 >80% 06/10 -06/09 sp cx Neg 06/08 CXR: Extensive bilateral interstitial and airspace disease appears similar to the prior exam. Moderate to large bilateral pleural effusions appear unchanged. 06/05 CXR: Increasing left upper lobe dense consolidation and likely increasing bilateral pleural fluid. Persistent diffuse dense consolidation elsewhere -06/03 sp cx normal resp marie -06/02 CXR: Increased atelectasis of the right lung, since prior exam of 3 days earlier. New or increased right pleural effusion. Increased left basilar consolidation and/or pleural fluid -COVID Rapid PCR neg 05/31, 05/31, 06/03 -05/30 spc x Group G strep -05/30 CXR: Reduced lung volumes. Patchy bilateral predominantly interstitial pulmonary opacities. Could be from edema and/or pneumonia. There is a broader differential. -legionella ag urine, blasto ab, Histo ab, HIV ab screen neg Persistent, high grade bacteremia- -05/30 Bcx 4/4 sets S. haemolyticus; 05/31 Bcx 3/4 S/ epi; 06/04 Bcx 1.4 S. warnerri; 06/06 Bcx Neg -2d echo: no vegetaions seen ua/ wbc 10-15, nit neg, leuk +1; ucx Neg LEANN; -supratherapeutic vanco levels -Seizure disorder. - Hypothyroidism. - Down syndrome. History of PEG tube placement. SD resident PLAN: -repeat blood Cx sputum and Urine Cx Cont Meropenem#12/10-14 (abx d #16) given resp decompensation -06/10 SP MIcafungin #7, Linezolid #5 f/u Repeat BCx given persistent bacteremia CT chest when stable enough, not currently given on FiO2 100% and pressors If pleural effusions, should be tapped to r/o empyema, send for bacterial cx as well as cell count and diff F/u cx of exudate around G-tube Trend GIB (black stools) 06/12/20 SP Daptomycin #11 06/05 SP Azithromycin #7/7 06/03 SP Ceftriaxone #2 06/02 SP IV Vancomycin #4, Zosyn #4 05/30 SP Cefepime x1, Flagyl x1 - Monitor CBC, BMP. -f/u Cocci ab, CrAg .f/u Repeat cx - COVID neg x3 - Monitor chest x-ray. - Monitor the patient's clinical course and labs. Based on those, we will do further recommendation. Thank you, Dr. Allred, for allowing me to participate in the care of this patient. I will follow the patient with you at this hospitalization. Discussed with RN Subjective Allergies: Coded Allergies: No Known Allergies (Unverified , 10/16/18) increasing wbcs afebrile Objective Last 24 Hour Vital Signs Date Time Temp Pulse Resp B/P (MAP) Pulse Ox O2 Delivery O2 Flow Rate FiO2 06/15/20 11:06 86 30 80 06/15/20 10:30 68 26 99/53 (68) 92 06/15/20 10:00 70 26 90/64 (73) 93 06/15/20 10:00 90/64 06/15/20 09:30 77 27 92/48 (63) 92 06/15/20 09:00 99/47 06/15/20 09:00 76 26 99/47 (64) 93 06/15/20 08:30 69 26 101/46 (64) 94 06/15/20 08:00 80 06/15/20 08:00 104/55 06/15/20 08:00 99.4 65 26 104/55 (71) 94 06/15/20 08:00 Mechanical Ventilator Mechanical Ventilator 06/15/20 08:00 74 06/15/20 07:45 70 26 104/53 (70) 94 06/15/20 07:45 104/53 06/15/20 07:30 69 26 98/51 (67) 94 06/15/20 07:10 67 26 80 06/15/20 07:00 69 26 93/48 (63) 93 06/15/20 07:00 93/48 06/15/20 06:45 62 26 95/48 (64) 93 06/15/20 06:30 66 26 96/50 (65) 92 06/15/20 06:00 67 26 102/50 (67) 93 06/15/20 06:00 99/52 06/15/20 05:30 78 28 95/46 (62) 94 06/15/20 05:15 71 26 80 06/15/20 05:00 95/50 06/15/20 05:00 67 27 95/51 (66) 95 06/15/20 04:00 99.5 84 29 97/56 (70) 97 06/15/20 04:00 Mechanical Ventilator Mechanical Ventilator 06/15/20 04:00 65 06/15/20 04:00 97/56 06/15/20 04:00 80 06/15/20 03:54 78 30 70 06/15/20 03:47 99.7 06/15/20 03:30 72 27 91/48 (62) 91 06/15/20 03:00 99.9 85 24 92/49 (63) 96 06/15/20 03:00 92/49 06/15/20 02:30 64 26 96/43 (60) 93 06/15/20 02:00 66 26 90/39 (56) 93 06/15/20 02:00 90/39 06/15/20 01:30 64 26 92/43 (59) 94 06/15/20 01:11 63 26 60 06/15/20 01:00 93/41 06/15/20 01:00 64 26 93/41 (58) 94 06/15/20 00:30 65 26 92/43 (59) 95 06/15/20 00:15 66 26 97/42 (60) 97 06/15/20 00:00 Mechanical Ventilator Mechanical Ventilator 06/15/20 00:00 70 06/15/20 00:00 98.7 68 26 97/41 (59) 96 06/15/20 00:00 97/42 06/15/20 00:00 61 06/14/20 23:48 80 26 70 06/14/20 23:45 79 26 89/40 (56) 95 06/14/20 23:30 81 26 93/47 (62) 97 06/14/20 23:15 68 26 103/44 (63) 98 06/14/20 23:00 75 24 99/51 (67) 98 06/14/20 23:00 93/47 06/14/20 22:45 72 26 102/44 (63) 98 06/14/20 22:30 67 26 98/45 (62) 98 06/14/20 22:00 64 26 111/59 (76) 100 06/14/20 21:52 60 26 100 06/14/20 21:45 61 26 108/47 (67) 99 06/14/20 21:30 65 26 111/54 (73) 100 06/14/20 21:15 62 26 102/48 (66) 99 06/14/20 21:00 64 26 105/47 (66) 100 06/14/20 21:00 111/59 06/14/20 20:30 63 26 104/52 (69) 100 06/14/20 20:00 100 06/14/20 20:00 64 06/14/20 20:00 108/56 06/14/20 20:00 105/47 06/14/20 20:00 99.0 61 26 108/46 (66) 100 06/14/20 20:00 Mechanical Ventilator Mechanical Ventilator 06/14/20 19:56 63 26 100 06/14/20 19:47 102/51 06/14/20 19:30 70 24 96/47 (63) 100 06/14/20 19:00 102/51 06/14/20 19:00 62 26 102/51 (68) 100 06/14/20 18:30 68 26 114/42 (66) 100 06/14/20 18:00 72 25 96/44 (61) 100 06/14/20 18:00 96/44 06/14/20 17:30 68 25 100/61 (74) 100 06/14/20 17:00 94/43 06/14/20 17:00 65 26 94/43 (60) 100 06/14/20 16:30 68 26 100 06/14/20 16:30 62 26 100/45 (63) 100 06/14/20 16:00 100 06/14/20 16:00 62 06/14/20 16:00 98.3 68 26 98/44 (62) 97 06/14/20 16:00 Mechanical Ventilator Mechanical Ventilator 06/14/20 16:00 98/44 06/14/20 15:30 62 26 99/44 (62) 98 06/14/20 15:00 104/43 06/14/20 15:00 63 26 107/92 (97) 100 06/14/20 14:51 61 26 100 06/14/20 14:30 78 26 92/40 (57) 98 06/14/20 14:00 71 26 96/41 (59) 99 06/14/20 14:00 96/41 06/14/20 13:30 72 27 91/44 (60) 100 06/14/20 13:00 98/45 06/14/20 13:00 68 24 98/45 (62) 100 06/14/20 12:43 67 26 100 06/14/20 12:30 61 26 99/44 (62) 100 06/14/20 12:00 Mechanical Ventilator Mechanical Ventilator 06/14/20 12:00 100 06/14/20 12:00 102/43 06/14/20 12:00 98.4 70 25 102/43 (62) 100 06/14/20 12:00 61 06/14/20 11:30 67 26 104/44 (64) 100 Height (Feet): 5 Height (Inches): 3.00 Weight (Pounds): 172 GEN: NAD on Vent 80% HEENT: NCAT, Intubated Pulm: Equal chest rise and fall B/L, No accessory muscle use ABD: Soft, ND SKIN: Exposed skin with no rash, Normal in color Laboratory Tests Test 06/15/20 04:45 06/15/20 10:09 White Blood Count 18.8 K/UL (4.8-10.8) H Red Blood Count 2.09 M/UL (4.20-5.40) L Hemoglobin 7.0 G/DL (12.0-16.0) L Hematocrit 20.9 % (37.0-47.0) L Mean Corpuscular Volume 100 FL (80-99) H Mean Corpuscular Hemoglobin 33.3 PG (27.0-31.0) H Mean Corpuscular Hemoglobin Concent 33.3 G/DL (32.0-36.0) Red Cell Distribution Width 14.9 % (11.6-14.8) H Platelet Count 71 K/UL (150-450) L Mean Platelet Volume 9.1 FL (6.5-10.1) Neutrophils (%) (Auto) % (45.0-75.0) Lymphocytes (%) (Auto) % (20.0-45.0) Monocytes (%) (Auto) % (1.0-10.0) Eosinophils (%) (Auto) % (0.0-3.0) Basophils (%) (Auto) % (0.0-2.0) Differential Total Cells Counted 100 Neutrophils % (Manual) 86 % (45-75) H Lymphocytes % (Manual) 5 % (20-45) L Monocytes % (Manual) 9 % (1-10) Eosinophils % (Manual) 0 % (0-3) Basophils % (Manual) 0 % (0-2) Band Neutrophils 0 % (0-8) Platelet Estimate Decreased L Platelet Morphology Normal Hypochromasia 3+ Anisocytosis 1+ Spherocytes 2+ Sodium Level 148 MMOL/L (136-145) H Potassium Level 3.6 MMOL/L (3.5-5.1) Chloride Level 119 MMOL/L (98-107) H Carbon Dioxide Level 24 MMOL/L (21-32) Anion Gap 5 mmol/L (5-15) Blood Urea Nitrogen 47 mg/dL (7-18) H Creatinine 1.2 MG/DL (0.55-1.30) Estimat Glomerular Filtration Rate 46.2 mL/min (>60) Glucose Level 129 MG/DL (74-106) H Calcium Level 8.2 MG/DL (8.5-10.1) L Iron Level Pending Unsaturated Iron Binding Pending Ferritin Pending Vitamin B12 Level Pending Folate Pending Current Medications Medications (Trade) Dose Ordered Sig/Katy Route PRN Reason Start Time Stop Time Status Last Admin Dose Admin Acetaminophen (Tylenol) 650 mg Q4H PRN GT FEVER 06/03/20 11:45 07/03/20 11:44 06/15/20 03:17 Chlorhexidine Gluconate (Alla-Hex 2%) 1 applic DAILY@1999 TOPIC 06/08/20 20:00 09/06/20 19:59 06/14/20 19:45 Clotrimazole (Lotrimin) 1 applic Q12HR TOPIC 06/07/20 13:00 09/05/20 12:59 06/15/20 09:02 Dextrose (Dextrose 50%) 25 ml Q30M PRN IV Hypoglycemia 06/03/20 11:30 08/28/20 11:29 Dextrose (Dextrose 50%) 50 ml Q30M PRN IV Hypoglycemia 06/03/20 11:30 08/28/20 11:29 Dopamine HCl/ Dextrose 250 ml @ 0 mls/hr Q24H IV 06/12/20 11:15 09/10/20 11:14 06/14/20 19:47 Hydrocortisone (Solu-CORTEF) 100 mg EVERY 8 HOURS IV 06/07/20 14:00 09/05/20 13:59 06/15/20 04:48 Levothyroxine Sodium (Synthroid) 75 mcg DAILY GT 06/04/20 09:00 06/30/20 08:59 06/15/20 08:51 Lorazepam (Ativan 2mg/ml 1ml) 2 mg Q2H PRN IV For Anxiety 06/12/20 17:30 06/19/20 17:29 06/12/20 17:37 Meropenem 1 gm/ Sodium Chloride 55 ml @ 110 mls/hr Q8H IVPB 06/14/20 12:00 06/19/20 11:59 06/15/20 04:26 Midodrine (Pro-Amatine) 10 mg Q8HR GT 06/05/20 14:00 09/03/20 13:59 06/15/20 04:48 Norepinephrine Bitartrate 16 mg/ Dextrose 500 ml @ 0 mls/hr Q24H IV 06/08/20 07:45 07/07/20 12:59 06/12/20 08:43 Ondansetron HCl (Zofran) 4 mg Q6H PRN IVP Nausea & Vomiting 06/03/20 12:00 06/29/20 11:59 Pantoprazole (Protonix) 40 mg DAILY IV 06/04/20 09:00 06/30/20 08:59 06/15/20 08:51 Phenylephrine HCl 50 mg/Dextrose 250 ml @ 0 mls/hr Q24H PRN IV For hypotension 06/06/20 17:45 07/06/20 17:44 06/08/20 01:49 Polyethylene Glycol (Miralax) 17 gm DAILYPRN PRN GT Constipation 06/03/20 12:00 06/29/20 11:59 Valproic Acid (Depakene) 500 mg EVERY 8 HOURS GT 06/03/20 14:00 06/29/20 21:59 06/15/20 04:48 Chencho Corley MD Jun 15, 2020 11:17
--- NOTE | 2020-06-15 12:00 | NUR ---
NURSE NOTES: Pt repositioned, Oral care provided, no distress noted at this time. Dr Corley assessing pt at bedside. Orders placed to collect urine and sputum for culture.
--- NOTE | 2020-06-15 13:20 | NUR ---
RESPIRATORY NOTE: PT RECEIVED STABLE ON CURRENT SETTINGS. ACVC+: 26, 500, 80%, +10. ALARMS ARE ON AND AUDIBLE. NO S/S OF RESPIRATORY DISTRESS ARE NOTED AT THIS TIME.
[2020-06-15 13:21] LABS: % IRON SATURATION 16 % (15-50); IRON 18 ug/dL (50-175); TOTAL IRON BINDING CAPACITY 112 ug/dL (250-450)
--- NOTE | 2020-06-15 13:28 | Pulmonolgy Critical Care Note ---
Critical Care - Asmt/Plan Problems: (1) Acute respiratory failure (2) Bacteremia (3) Pneumonia (4) Sepsis (5) HCAP (healthcare-associated pneumonia) (6) Seizure disorder (7) Down's syndrome Respiratory: monitor respiratory rate, adjust FIO2, CXR Cardiac: continue to monitor HR/BP Renal: F/U I&O, check electrolytes Infectious Disease: check cultures, continue antibiotics Gastrointestinal: continue feedings/current rate Endocrine: monitor blood sugar Hematologic: monitor H/H, transfuse if hgb<8.5 Neurologic: keep patient comfortable Affect: PRN ativan Prophylaxis: Protonix, Heparin Disposition: keep in ICU Time Spent (Minutes): 40 Notes 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, 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 with: nurses, consultants, 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 operations manager - Objective Last 24 Hour Vital Signs Date Time Temp Pulse Resp B/P (MAP) Pulse Ox O2 Delivery O2 Flow Rate FiO2 06/15/20 12:30 71 26 96/50 (65) 95 06/15/20 12:00 99.6 65 26 95/50 (65) 94 06/15/20 12:00 80 06/15/20 11:30 67 26 98/50 (66) 94 06/15/20 11:06 86 30 80 06/15/20 11:00 93/48 06/15/20 11:00 66 26 93/48 (63) 93 06/15/20 10:30 68 26 99/53 (68) 92 06/15/20 10:00 70 26 90/64 (73) 93 06/15/20 10:00 90/64 06/15/20 09:30 77 27 92/48 (63) 92 06/15/20 09:15 70 26 80 06/15/20 09:00 99/47 06/15/20 09:00 76 26 99/47 (64) 93 06/15/20 08:30 69 26 101/46 (64) 94 06/15/20 08:00 80 06/15/20 08:00 104/55 06/15/20 08:00 99.4 65 26 104/55 (71) 94 06/15/20 08:00 Mechanical Ventilator Mechanical Ventilator 06/15/20 08:00 74 06/15/20 07:45 70 26 104/53 (70) 94 06/15/20 07:45 104/53 06/15/20 07:30 69 26 98/51 (67) 94 06/15/20 07:10 67 26 80 06/15/20 07:00 69 26 93/48 (63) 93 06/15/20 07:00 93/48 06/15/20 06:45 62 26 95/48 (64) 93 06/15/20 06:30 66 26 96/50 (65) 92 06/15/20 06:00 67 26 102/50 (67) 93 06/15/20 06:00 99/52 06/15/20 05:30 78 28 95/46 (62) 94 06/15/20 05:15 71 26 80 06/15/20 05:00 95/50 06/15/20 05:00 67 27 95/51 (66) 95 06/15/20 04:00 99.5 84 29 97/56 (70) 97 06/15/20 04:00 Mechanical Ventilator Mechanical Ventilator 06/15/20 04:00 65 06/15/20 04:00 97/56 06/15/20 04:00 80 06/15/20 03:54 78 30 70 06/15/20 03:47 99.7 06/15/20 03:30 72 27 91/48 (62) 91 06/15/20 03:00 99.9 85 24 92/49 (63) 96 06/15/20 03:00 92/49 06/15/20 02:30 64 26 96/43 (60) 93 06/15/20 02:00 66 26 90/39 (56) 93 06/15/20 02:00 90/39 06/15/20 01:30 64 26 92/43 (59) 94 06/15/20 01:11 63 26 60 06/15/20 01:00 93/41 06/15/20 01:00 64 26 93/41 (58) 94 06/15/20 00:30 65 26 92/43 (59) 95 06/15/20 00:15 66 26 97/42 (60) 97 06/15/20 00:00 Mechanical Ventilator Mechanical Ventilator 06/15/20 00:00 70 06/15/20 00:00 98.7 68 26 97/41 (59) 96 06/15/20 00:00 97/42 06/15/20 00:00 61 06/14/20 23:48 80 26 70 06/14/20 23:45 79 26 89/40 (56) 95 06/14/20 23:30 81 26 93/47 (62) 97 06/14/20 23:15 68 26 103/44 (63) 98 20 23:00 75 24 99/51 (67) 98 20 23:00 93/47 06/14/20 22:45 72 26 102/44 (63) 98 20 22:30 67 26 98/45 (62) 98 20 22:00 64 26 111/59 (76) 100 06/14/20 21:52 60 26 100 06/14/20 21:45 61 26 108/47 (67) 99 06/14/20 21:30 65 26 111/54 (73) 100 06/14/20 21:15 62 26 102/48 (66) 99 06/14/20 21:00 64 26 105/47 (66) 100 06/14/20 21:00 111/59 06/14/20 20:30 63 26 104/52 (69) 100 06/14/20 20:00 100 06/14/20 20:00 64 06/14/20 20:00 108/56 06/14/20 20:00 105/47 06/14/20 20:00 99.0 61 26 108/46 (66) 100 06/14/20 20:00 Mechanical Ventilator Mechanical Ventilator 06/14/20 19:56 63 26 100 06/14/20 19:47 102/51 06/14/20 19:30 70 24 96/47 (63) 100 06/14/20 19:00 102/51 20 19:00 62 26 102/51 (68) 100 06/14/20 18:30 68 26 114/42 (66) 100 06/14/20 18:00 72 25 96/44 (61) 100 20 18:00 96/44 06/14/20 17:30 68 25 100/61 (74) 100 20 17:00 94/43 20 17:00 65 26 94/43 (60) 100 06/14/20 16:30 68 26 100 20 16:30 62 26 100/45 (63) 100 06/14/20 16:00 100 06/14/20 16:00 62 06/14/20 16:00 98.3 68 26 98/44 (62) 97 06/14/20 16:00 Mechanical Ventilator Mechanical Ventilator 06/14/20 16:00 98/44 06/14/20 15:30 62 26 99/44 (62) 98 06/14/20 15:00 104/43 06/14/20 15:00 63 26 107/92 (97) 100 06/14/20 14:51 61 26 100 06/14/20 14:30 78 26 92/40 (57) 98 06/14/20 14:00 71 26 96/41 (59) 99 06/14/20 14:00 96/41 06/14/20 13:30 72 27 91/44 (60) 100 Status: sedated Condition: critical HEENT: atraumatic Lungs: clear Heart: HR/BP stable, regular Abdomen: soft, non-tender, feeding tube Extremities: no C/C/E Decubiti: stage Accucheck: 131 Critical Care - Subjective ROS Limited/Unobtainable: Yes Condition: critical EKG Rhythm: Sinus Rhythm FI02: 80 Vent Support Breath Rate: 26 Vent Support Mode: AC Vent Tidal Volume: 500 Sputum Amount: Scant PEEP: 10.0 PIP: 36 Tube Feeding Amount: 50 I&O: Intake and Output 06/14/20 06/15/20 19:00 07:00 Intake Total 1211.300 ml 882.168 ml Output Total 755 ml 1000 ml Balance 456.300 ml -117.832 ml Free Water 110 ml 120 ml IV Total 651.300 ml 162.168 ml Tube Feeding 450 ml 600 ml Output Urine Total 755 ml 1000 ml CXR: no change ET-Tube: 7.5 ET Position: 22 Labs: Laboratory Tests Test 06/15/20 04:45 06/15/20 10:09 White Blood Count 18.8 K/UL (4.8-10.8) H Red Blood Count 2.09 M/UL (4.20-5.40) L Hemoglobin 7.0 G/DL (12.0-16.0) L Hematocrit 20.9 % (37.0-47.0) L Mean Corpuscular Volume 100 FL (80-99) H Mean Corpuscular Hemoglobin 33.3 PG (27.0-31.0) H Mean Corpuscular Hemoglobin Concent 33.3 G/DL (32.0-36.0) Red Cell Distribution Width 14.9 % (11.6-14.8) H Platelet Count 71 K/UL (150-450) L Mean Platelet Volume 9.1 FL (6.5-10.1) Neutrophils (%) (Auto) % (45.0-75.0) Lymphocytes (%) (Auto) % (20.0-45.0) Monocytes (%) (Auto) % (1.0-10.0) Eosinophils (%) (Auto) % (0.0-3.0) Basophils (%) (Auto) % (0.0-2.0) Differential Total Cells Counted 100 Neutrophils % (Manual) 86 % (45-75) H Lymphocytes % (Manual) 5 % (20-45) L Monocytes % (Manual) 9 % (1-10) Eosinophils % (Manual) 0 % (0-3) Basophils % (Manual) 0 % (0-2) Band Neutrophils 0 % (0-8) Platelet Estimate Decreased L Platelet Morphology Normal Hypochromasia 3+ Anisocytosis 1+ Spherocytes 2+ Sodium Level 148 MMOL/L (136-145) H Potassium Level 3.6 MMOL/L (3.5-5.1) Chloride Level 119 MMOL/L (98-107) H Carbon Dioxide Level 24 MMOL/L (21-32) Anion Gap 5 mmol/L (5-15) Blood Urea Nitrogen 47 mg/dL (7-18) H Creatinine 1.2 MG/DL (0.55-1.30) Estimat Glomerular Filtration Rate 46.2 mL/min (>60) Glucose Level 129 MG/DL (74-106) H Calcium Level 8.2 MG/DL (8.5-10.1) L Iron Level 18 ug/dL (50-175) L Total Iron Binding Capacity 112 ug/dL (250-450) L Percent Iron Saturation 16 % (15-50) Unsaturated Iron Binding 94 ug/dL (112-346) L Ferritin Pending Vitamin B12 Level 989 PG/ML (193-986) H Folate 10.0 NG/ML (8.6-58.9) Elayne Allred MD Jun 15, 2020 13:28
--- NOTE | 2020-06-15 13:32 | General Progress Note ---
Progress Note Progress Note Pt is critically ill in ICU. She needs urgently blood transfusion. She is under the care of public guardian, who defers the consent for blood transfusion to medical staff taking care her. Elayne Allred MD Jun 15, 2020 13:32
--- NOTE | 2020-06-15 13:45 | NUR ---
NURSE NOTES: Dr Allred assessing pt at bedside - 1 unit of PRBCs ordered. Will draw ABO/RH and send down to lab.
--- NOTE | 2020-06-15 14:00 | NUR ---
NURSE NOTES: Left message for Dr Allred with recent ABG results. Awaiting call back for new vent setting orders. Pt repositioned, no distress noted.
--- NOTE | 2020-06-15 14:14 | Internal Med Progress Note ---
Subjective Physician Name Guillaume Hawk Attending Physician Elayne Allred MD Current Medications Medications (Trade) Dose Ordered Sig/Katy Route PRN Reason Start Time Stop Time Status Last Admin Dose Admin Acetaminophen (Tylenol) 650 mg Q4H PRN GT FEVER 06/03/20 11:45 07/03/20 11:44 06/15/20 03:17 Chlorhexidine Gluconate (Alla-Hex 2%) 1 applic DAILY@2000 TOPIC 06/08/20 20:00 09/06/20 19:59 06/14/20 19:45 Clotrimazole (Lotrimin) 1 applic Q12HR TOPIC 06/07/20 13:00 09/05/20 12:59 06/15/20 09:02 Dextrose (Dextrose 50%) 25 ml Q30M PRN IV Hypoglycemia 06/03/20 11:30 08/28/20 11:29 Dextrose (Dextrose 50%) 50 ml Q30M PRN IV Hypoglycemia 06/03/20 11:30 08/28/20 11:29 Dopamine HCl/ Dextrose 250 ml @ 0 mls/hr Q24H IV 06/12/20 11:15 09/10/20 11:14 06/14/20 19:47 Hydrocortisone (Solu-CORTEF) 100 mg EVERY 8 HOURS IV 06/07/20 14:00 09/05/20 13:59 06/15/20 04:48 Levothyroxine Sodium (Synthroid) 75 mcg DAILY GT 06/04/20 09:00 06/30/20 08:59 06/15/20 08:51 Lorazepam (Ativan 2mg/ml 1ml) 2 mg Q2H PRN IV For Anxiety 06/12/20 17:30 06/19/20 17:29 06/12/20 17:37 Meropenem 1 gm/ Sodium Chloride 55 ml @ 110 mls/hr Q8H IVPB 06/14/20 12:00 06/19/20 11:59 06/15/20 11:59 Midodrine (Pro-Amatine) 10 mg Q8HR GT 06/05/20 14:00 09/03/20 13:59 06/15/20 04:48 Norepinephrine Bitartrate 16 mg/ Dextrose 500 ml @ 0 mls/hr Q24H IV 06/08/20 07:45 07/07/20 12:59 06/12/20 08:43 Ondansetron HCl (Zofran) 4 mg Q6H PRN IVP Nausea & Vomiting 06/03/20 12:00 06/29/20 11:59 Pantoprazole (Protonix) 40 mg DAILY IV 06/04/20 09:00 06/30/20 08:59 06/15/20 08:51 Phenylephrine HCl 50 mg/Dextrose 250 ml @ 0 mls/hr Q24H PRN IV For hypotension 06/06/20 17:45 07/06/20 17:44 06/08/20 01:49 Polyethylene Glycol (Miralax) 17 gm DAILYPRN PRN GT Constipation 06/03/20 12:00 06/29/20 11:59 Valproic Acid (Depakene) 500 mg EVERY 8 HOURS GT 06/03/20 14:00 06/29/20 21:59 06/15/20 04:48 Allergies: Coded Allergies: No Known Allergies (Unverified , 10/16/18) Subjective in ICU, remained intubated on the vent, open eyes, unable to follow command. WBC : 18.8, Hgb: 7.0 Objective Last Vital Signs Date Time Temp Pulse Resp B/P (MAP) Pulse Ox O2 Delivery O2 Flow Rate FiO2 06/15/20 14:00 78 28 92/53 (66) 91 06/15/20 12:00 Mechanical Ventilator Mechanical Ventilator 06/15/20 12:00 99.6 06/15/20 12:00 80 Laboratory Tests Test 06/15/20 04:45 06/15/20 10:09 06/15/20 13:38 White Blood Count 18.8 K/UL (4.8-10.8) H Red Blood Count 2.09 M/UL (4.20-5.40) L Hemoglobin 7.0 G/DL (12.0-16.0) L Hematocrit 20.9 % (37.0-47.0) L Mean Corpuscular Volume 100 FL (80-99) H Mean Corpuscular Hemoglobin 33.3 PG (27.0-31.0) H Mean Corpuscular Hemoglobin Concent 33.3 G/DL (32.0-36.0) Red Cell Distribution Width 14.9 % (11.6-14.8) H Platelet Count 71 K/UL (150-450) L Mean Platelet Volume 9.1 FL (6.5-10.1) Neutrophils (%) (Auto) % (45.0-75.0) Lymphocytes (%) (Auto) % (20.0-45.0) Monocytes (%) (Auto) % (1.0-10.0) Eosinophils (%) (Auto) % (0.0-3.0) Basophils (%) (Auto) % (0.0-2.0) Differential Total Cells Counted 100 Neutrophils % (Manual) 86 % (45-75) H Lymphocytes % (Manual) 5 % (20-45) L Monocytes % (Manual) 9 % (1-10) Eosinophils % (Manual) 0 % (0-3) Basophils % (Manual) 0 % (0-2) Band Neutrophils 0 % (0-8) Platelet Estimate Decreased L Platelet Morphology Normal Hypochromasia 3+ Anisocytosis 1+ Spherocytes 2+ Sodium Level 148 MMOL/L (136-145) H Potassium Level 3.6 MMOL/L (3.5-5.1) Chloride Level 119 MMOL/L (98-107) H Carbon Dioxide Level 24 MMOL/L (21-32) Anion Gap 5 mmol/L (5-15) Blood Urea Nitrogen 47 mg/dL (7-18) H Creatinine 1.2 MG/DL (0.55-1.30) Estimat Glomerular Filtration Rate 46.2 mL/min (>60) Glucose Level 129 MG/DL (74-106) H Calcium Level 8.2 MG/DL (8.5-10.1) L Iron Level 18 ug/dL (50-175) L Total Iron Binding Capacity 112 ug/dL (250-450) L Percent Iron Saturation 16 % (15-50) Unsaturated Iron Binding 94 ug/dL (112-346) L Ferritin Pending Vitamin B12 Level 989 PG/ML (193-986) H Folate 10.0 NG/ML (8.6-58.9) Arterial Blood pH 7.466 (7.350-7.450) Arterial Blood Partial Pressure CO2 28.0 mmHg (35.0-45.0) L Arterial Blood Partial Pressure O2 59.6 mmHg (75.0-100.0) L Arterial Blood HCO3 19.7 mmol/L (22.0-26.0) L Arterial Blood Oxygen Saturation 91.1 % (95-100) L Arterial Blood Base Excess -3.4 (-2-2) L Jonathan Test Positive Intake and Output 06/14/20 06/15/20 19:00 07:00 Intake Total 1211.300 ml 882.168 ml Output Total 755 ml 1000 ml Balance 456.300 ml -117.832 ml Free Water 110 ml 120 ml IV Total 651.300 ml 162.168 ml Tube Feeding 450 ml 600 ml Output Urine Total 755 ml 1000 ml Objective General: remain intubated, unable to follow command, open eyes. HEENT: NCAT, sclera anicteric, PERRL, ET Tube. Neck: Supple, no significant jugular venous distention, Lungs: mechanical breath sounds decreased air at the bases, no Wheeze or Rales. Heart: Regular rate and rhythm, normal S1/S2, no murmurs/gallops Abdomen: soft, not tender, not distended. + bowel sounds, Morbid Obesity, PEG site intact. Extremities: No Cyanosis , clubbing, upper extremities less edema. left upper extremity PICC line. Neuro: limited secondary to patient status, unable to follow command, bilateral upper and lower extremities contracted. Assessment/Plan Assessment/Plan Problem List: (1) HCAP (healthcare-associated pneumonia) (2) Sepsis (3) Down's syndrome (4) Dysphagia S/P PEG (5) Seizure disorder (6) Hypothyroidism (7) Acute Hypoxemic respiratory failure (8) Persistent, high grade bacteremia- r/o endocarditis (9) LEANN Plan: Tolerated tube feeding @ 50 cc/hr Follow-up with laboratory and cultures on Dopamine drip Hydrocortisone 100 mg IV every 8 Cont Meropenem#12/10-14 (abx d #16) given resp decompensation Transfuse PR[facility] GI consult Guillaume Hawk MD Jun 15, 2020 14:14
[2020-06-15 14:47] LABS: FERRITIN 732 NG/ML (8-388)
--- NOTE | 2020-06-15 14:49 | NUR ---
NURSE NOTES: urine, sputum, and ABO/RH sent down to lab for processing.
--- NOTE | 2020-06-15 15:15 | NUR ---
NURSE NOTES: Received call back from Dr Allred with order to increase peep to 12. vent settings changed per RT.
--- NOTE | 2020-06-15 15:16 | NUR ---
NURSE HAND-OFF REPORT: Latest Vital Signs: Temperature 99.6 , Pulse 79 , B/P 95 /51 , Respiratory Rate 28 , O2 SAT 92 , Mechanical Ventilator, O2 Flow Rate 15.0 . Vital Sign Comment: stable on 1 mcg/kg/min of dopa EKG Rhythm: Sinus Rhythm Rhythm change?: N MD Notified?: n/a MD Response: n/a Latest Osorio Fall Score: 50 Fall Risk: High Risk Safety Measures: Call light Within Reach, Bed Alarm Zone 2, Side Rails Side Rails x3, Bed position Low and Locked. Fall Precautions: Yellow Socks Yellow Gown Door Sign Patient Fall Education Report given to TAI Small.
--- NOTE | 2020-06-15 15:17 | NUR ---
NURSE NOTES: Received patient in bed. Orally intubated, vent dependent. Able to open eyes, non verbal. No facial grimace, no respiratory distress. On continuous GTF per order. Gregorio cath inplace. Contact isolation observed. Will continue plan of care.
--- NOTE | 2020-06-15 16:00 | NUR ---
NURSE NOTES: On continuous dopamine drip at 1mcg/hour. Vital signs remains stable.
--- NOTE | 2020-06-15 16:54 | NUR ---
RESPIRATORY NOTE: PT REMAINED STABLE ON CMV WITH CURRENT SETTINGS. SXN'D PRN WITH NO COMPLICATIONS. AIRWAY IS SECURE AND PATENT. NO S/S OF RESPIRATORY DISTRESS NOTED.
--- NOTE | 2020-06-15 17:00 | NUR ---
NURSE NOTES: Oral care provided. No signs and symptoms of bleeding at this time.
--- NOTE | 2020-06-15 18:15 | NUR ---
NURSE NOTES: 1 PRBC started, will monitor for transfusion reaction.
--- NOTE | 2020-06-15 18:30 | NUR ---
NURSE NOTES: No blood transfusion reaction noted after 15 mins. Will continue blood transfusion per protocol.
--- NOTE | 2020-06-15 19:25 | NUR ---
NURSE HAND-OFF REPORT: Latest Vital Signs: Temperature 99.1 , Pulse 73 , B/P 98 /48 , Respiratory Rate 26 , O2 SAT 100 , Mechanical Ventilator, FiO2 90%. Vital Sign Comment: Currently on 1 PRBC transfusion. EKG Rhythm: Sinus Rhythm Rhythm change?: N On continuous GTF as tolerated. Latest Osorio Fall Score: 50 Fall Risk: High Risk Safety Measures: Call light Within Reach, Bed Alarm Zone 2, Side Rails Side Rails x3, Bed position Low and Locked. Fall Precautions: Yellow Socks Yellow Gown Door Sign Patient Fall Education Contact isolation endorsed Report given to Marci Perez RN.
--- NOTE | 2020-06-15 19:30 | NUR ---
NURSE NOTES: received pt with Dx PNA, Hx down syndrome, opened eyes to tactile stimulation, SR on the monitor Bp been supported with Dopamine drip at 1 mcg/kg/min,infusing to JODY PICC line, site with drsg dry and intact, orally intubated on ac mode, Suctioned tn tk whitish to beige secretions moderate in amt. Will continue to monitor.
[2020-06-15] MEDS: Dyna-Hex 2% Top Sol 2oz TOPIC SCH (19:54)
--- NOTE | 2020-06-15 21:15 | NUR ---
NURSE NOTES: 1 unit PRBC was finished , no reactions noted.
--- NOTE | 2020-06-15 21:45 | Cardiology Progress Note ---
Assessment/Plan Assessment/Plan pneumonia, severe hypotension,on pressors, dopamine is weaned to 1 mcg/kg/hour Subjective Subjective The patient is more alert today and looking around Objective Last 24 Hour Vital Signs Date Time Temp Pulse Resp B/P (MAP) Pulse Ox O2 Delivery O2 Flow Rate FiO2 06/15/20 19:30 73 26 98/48 (65) 100 06/15/20 19:00 101/50 06/15/20 19:00 73 25 101/50 (67) 100 06/15/20 18:53 75 27 90 06/15/20 18:45 69 24 97/51 (66) 100 06/15/20 18:30 99.1 67 26 99/51 (67) 100 06/15/20 18:15 99.4 76 25 99/53 (68) 100 06/15/20 18:00 97/50 06/15/20 18:00 70 25 97/50 (66) 99 06/15/20 17:30 69 26 96/50 (65) 99 06/15/20 17:00 87/74 06/15/20 17:00 74 25 87/74 (78) 99 06/15/20 16:54 67 26 90 06/15/20 16:30 68 26 98/50 (66) 99 06/15/20 16:06 78 06/15/20 16:00 99.2 73 26 98/47 (64) 99 06/15/20 16:00 Mechanical Ventilator Mechanical Ventilator 06/15/20 16:00 98/47 06/15/20 16:00 90 06/15/20 15:30 74 23 91/46 (61) 99 06/15/20 15:16 90 06/15/20 15:14 74 26 90 06/15/20 15:00 107/61 06/15/20 15:00 90 27 107/61 (76) 92 90 06/15/20 14:30 79 28 95/51 (66) 92 06/15/20 14:00 78 28 92/53 (66) 91 06/15/20 14:00 92/53 06/15/20 13:45 90 06/15/20 13:30 77 26 93/77 (82) 93 06/15/20 13:20 75 26 80 06/15/20 13:00 98/50 9/7/20 13:00 70 26 98/50 (66) 93 06/15/20 12:30 71 26 96/50 (65) 95 06/15/20 12:00 Mechanical Ventilator Mechanical Ventilator 06/15/20 12:00 99.6 65 26 95/50 (65) 94 06/15/20 12:00 66 06/15/20 12:00 80 06/15/20 12:00 95/50 06/15/20 11:30 67 26 98/50 (66) 94 06/15/20 11:06 86 30 80 06/15/20 11:00 93/48 06/15/20 11:00 66 26 93/48 (63) 93 06/15/20 10:30 68 26 99/53 (68) 92 06/15/20 10:00 70 26 90/64 (73) 93 06/15/20 10:00 90/64 06/15/20 09:30 77 27 92/48 (63) 92 06/15/20 09:15 70 26 80 06/15/20 09:00 99/47 06/15/20 09:00 76 26 99/47 (64) 93 06/15/20 08:30 69 26 101/46 (64) 94 06/15/20 08:00 80 06/15/20 08:00 104/55 06/15/20 08:00 99.4 65 26 104/55 (71) 94 06/15/20 08:00 Mechanical Ventilator Mechanical Ventilator 06/15/20 08:00 74 06/15/20 07:45 70 26 104/53 (70) 94 06/15/20 07:45 104/53 06/15/20 07:30 69 26 98/51 (67) 94 06/15/20 07:10 67 26 80 06/15/20 07:00 69 26 93/48 (63) 93 06/15/20 07:00 93/48 06/15/20 06:45 62 26 95/48 (64) 93 06/15/20 06:30 66 26 96/50 (65) 92 06/15/20 06:00 67 26 102/50 (67) 93 06/15/20 06:00 99/52 06/15/20 05:30 78 28 95/46 (62) 94 06/15/20 05:15 71 26 80 06/15/20 05:00 95/50 06/15/20 05:00 67 27 95/51 (66) 95 06/15/20 04:00 99.5 84 29 97/56 (70) 97 06/15/20 04:00 Mechanical Ventilator Mechanical Ventilator 06/15/20 04:00 65 06/15/20 04:00 97/56 06/15/20 04:00 80 06/15/20 03:54 78 30 70 06/15/20 03:47 99.7 06/15/20 03:30 72 27 91/48 (62) 91 06/15/20 03:00 99.9 85 24 92/49 (63) 96 06/15/20 03:00 92/49 06/15/20 02:30 64 26 96/43 (60) 93 06/15/20 02:00 66 26 90/39 (56) 93 06/15/20 02:00 90/39 06/15/20 01:30 64 26 92/43 (59) 94 06/15/20 01:11 63 26 60 06/15/20 01:00 93/41 06/15/20 01:00 64 26 93/41 (58) 94 06/15/20 00:30 65 26 92/43 (59) 95 06/15/20 00:15 66 26 97/42 (60) 97 06/15/20 00:00 Mechanical Ventilator Mechanical Ventilator 06/15/20 00:00 70 06/15/20 00:00 98.7 68 26 97/41 (59) 96 06/15/20 00:00 97/42 06/15/20 00:00 61 06/14/20 23:48 80 26 70 06/14/20 23:45 79 26 89/40 (56) 95 06/14/20 23:30 81 26 93/47 (62) 97 06/14/20 23:15 68 26 103/44 (63) 98 06/14/20 23:00 75 24 99/51 (67) 98 06/14/20 23:00 93/47 06/14/20 22:45 72 26 102/44 (63) 98 06/14/20 22:30 67 26 98/45 (62) 98 06/14/20 22:00 64 26 111/59 (76) 100 9/6/20 21:52 60 26 100 06/14/20 21:45 61 26 108/47 (67) 99 General Appearance: on vent EENT: PERRL/EOMI Neck: no JVD Rhythm: SB Cardiovascular: regular rhythm Respiratory/Chest: rhonchi - bilaterally Abdomen: soft Extremities: other - generalized edema Intake and Output 06/14/20 06/15/20 19:00 07:00 Intake Total 1211.300 ml 882.168 ml Output Total 755 ml 1000 ml Balance 456.300 ml -117.832 ml Free Water 110 ml 120 ml IV Total 651.300 ml 162.168 ml Tube Feeding 450 ml 600 ml Output Urine Total 755 ml 1000 ml Laboratory Tests Test 06/15/20 04:45 06/15/20 10:09 06/15/20 13:38 White Blood Count 18.8 K/UL (4.8-10.8) H Red Blood Count 2.09 M/UL (4.20-5.40) L Hemoglobin 7.0 G/DL (12.0-16.0) L Hematocrit 20.9 % (37.0-47.0) L Mean Corpuscular Volume 100 FL (80-99) H Mean Corpuscular Hemoglobin 33.3 PG (27.0-31.0) H Mean Corpuscular Hemoglobin Concent 33.3 G/DL (32.0-36.0) Red Cell Distribution Width 14.9 % (11.6-14.8) H Platelet Count 71 K/UL (150-450) L Mean Platelet Volume 9.1 FL (6.5-10.1) Neutrophils (%) (Auto) % (45.0-75.0) Lymphocytes (%) (Auto) % (20.0-45.0) Monocytes (%) (Auto) % (1.0-10.0) Eosinophils (%) (Auto) % (0.0-3.0) Basophils (%) (Auto) % (0.0-2.0) Differential Total Cells Counted 100 Neutrophils % (Manual) 86 % (45-75) H Lymphocytes % (Manual) 5 % (20-45) L Monocytes % (Manual) 9 % (1-10) Eosinophils % (Manual) 0 % (0-3) Basophils % (Manual) 0 % (0-2) Band Neutrophils 0 % (0-8) Platelet Estimate Decreased L Platelet Morphology Normal Hypochromasia 3+ Anisocytosis 1+ Spherocytes 2+ Sodium Level 148 MMOL/L (136-145) H Potassium Level 3.6 MMOL/L (3.5-5.1) Chloride Level 119 MMOL/L (98-107) H Carbon Dioxide Level 24 MMOL/L (21-32) Anion Gap 5 mmol/L (5-15) Blood Urea Nitrogen 47 mg/dL (7-18) H Creatinine 1.2 MG/DL (0.55-1.30) Estimat Glomerular Filtration Rate 46.2 mL/min (>60) Glucose Level 129 MG/DL (74-106) H Calcium Level 8.2 MG/DL (8.5-10.1) L Iron Level 18 ug/dL (50-175) L Total Iron Binding Capacity 112 ug/dL (250-450) L Percent Iron Saturation 16 % (15-50) Unsaturated Iron Binding 94 ug/dL (112-346) L Ferritin 732 NG/ML (8-388) H Vitamin B12 Level 989 PG/ML (193-986) H Folate 10.0 NG/ML (8.6-58.9) Arterial Blood pH 7.466 (7.350-7.450) Arterial Blood Partial Pressure CO2 28.0 mmHg (35.0-45.0) L Arterial Blood Partial Pressure O2 59.6 mmHg (75.0-100.0) L Arterial Blood HCO3 19.7 mmol/L (22.0-26.0) L Arterial Blood Oxygen Saturation 91.1 % (95-100) L Arterial Blood Base Excess -3.4 (-2-2) L Jonathan Test Positive Lesley Mandel MD Jun 15, 2020 21:45
--- NOTE | 2020-06-15 23:00 | NUR ---
NURSE NOTES: Suctioned tn tk whitish secretions moderate in amt. Turned q 2hrs prn with good skin care done.
[2020-06-16] VITALS (31 sets, daily range): BP systolic 92–138; BP diastolic 45–99
--- NOTE | 2020-06-16 01:00 | NUR ---
NURSE NOTES: Had x1 soft brownish stool. cleaned up pt.
--- NOTE | 2020-06-16 01:00 | NUR ---
NURSE NOTES: Turned off dopamine drip SBP >90.
--- NOTE | 2020-06-16 04:00 | NUR ---
NURSE NOTES: Complete bed bath with bed changed done.
[2020-06-16] MEDS: Meropenem 1 GM in NS 55 ML IVPB SCH ×3 (04:08→20:13)
[2020-06-16 05:25] LABS: HEMATOCRIT 25.4 % (37.0-47.0); HEMOGLOBIN 8.6 G/DL (12.0-16.0); MEAN CORPUSCULAR VOLUME 96 FL (80-99); PLATELET COUNT 100 K/UL (150-450); RED BLOOD COUNT 2.65 M/UL (4.20-5.40); RED CELL DISTRIBUTION WIDTH 15.5 % (11.6-14.8)
--- NOTE | 2020-06-16 06:00 | NUR ---
NURSE NOTES: Dopamine still off . VSS, neuro unchanged.
[2020-06-16] MEDS: Midodrine 10mg tab GT SCH ×3 (06:07→21:47)
[2020-06-16] MEDS: Hydrocortisone 100mg Inj IV SCH ×3 (06:07→21:47)
[2020-06-16] MEDS: Valproic Acid 250mg/5ml Liquid GT SCH ×3 (06:07→21:47)
--- NOTE | 2020-06-16 07:10 | NUR ---
NURSE HAND-OFF REPORT: Latest Vital Signs: Temperature 99.8 , Pulse 69 , B/P 95 /50 , Respiratory Rate 25 , O2 SAT 93 , Mechanical Ventilator, O2 Flow Rate 15.0 . Vital Sign Comment: EKG Rhythm: Sinus Rhythm Rhythm change?: N MD Notified?: - MD Response: Latest Osorio Fall Score: 50 Fall Risk: High Risk Safety Measures: Call light Within Reach, Bed Alarm Zone 2, Side Rails Side Rails x3, Bed position Low and Locked. Fall Precautions: Yellow Socks Yellow Gown Door Sign Patient Fall Education Report given to Delmar LUJAN
[2020-06-16 07:12] LABS: ALANINE AMINOTRANSFERASE 221 U/L (12-78); ALBUMIN 1.2 G/DL (3.4-5.0); ALBUMIN/GLOBULIN RATIO 0.4 (1.0-2.7); ALKALINE PHOSPHATASE 60 U/L (46-116); ANION GAP 7 mmol/L (5-15); ASPARTATE AMINO TRANSFERASE 81 U/L (15-37); BILIRUBIN,TOTAL 0.4 MG/DL (0.2-1.0); BLOOD UREA NITROGEN 46 mg/dL (7-18); CALCIUM 7.9 MG/DL (8.5-10.1); CARBON DIOXIDE 25 MMOL/L (21-32); CHLORIDE 120 MMOL/L (98-107); CREATININE 1.2 MG/DL (0.55-1.30); GAMMA GLUTAMYL TRANSPEPTIDASE 45 U/L (5-85); PHOSPHORUS 2.8 MG/DL (2.5-4.9); POTASSIUM 3.5 MMOL/L (3.5-5.1); SODIUM 152 MMOL/L (136-145)
--- NOTE | 2020-06-16 07:12 | NUR ---
NURSE NOTES: Received report from TAI Covarrubias. Patient asleep and responsive to verbal with eye tracking. ETT 7.5/22cm at lip line with vent setting AC 26, VT 500, FiO2 80% and Peep 12. Gtube intact and running with jevity 1.2 @50ml/hr. Gregorio intact and draining with yellow color urine. Left upper arm PICC intact and clean with TKO. kept dry, clean, comfortable and HOB>30. Will continue plan of care.
[2020-06-16] MEDS: Norepinephrine Bitartrate 16 MG in D5W 500ml 484 ML IV SCH (07:45)
[2020-06-16] MEDS: Pantoprazole Inj IV SCH (08:17)
--- NOTE | 2020-06-16 08:39 | NUR ---
RADIOLOGY DEPT., CHEST X-RAY DONE.-P.DYE
--- NOTE | 2020-06-16 10:01 | NUR ---
NURSE NOTES: Seen by Dr. Allred and assessed patient. Updated patient's status.
--- NOTE | 2020-06-16 10:06 | Nephrology Progress Note ---
Assessment/Plan Problem List: (1) LEANN (acute kidney injury) (2) Respiratory failure requiring intubation (3) Down's syndrome (4) Seizure disorder (5) Hypothyroidism Assessment Acute renal failure, likely due to hypotension Acute respiratory distress, hypoxia Seizure disorder Hypothyroidism Down syndrome Full code Fluid challenge with IV fluids and albumin Midodrine for BP above 100 systolic Check TSH level Check Correct level Monitor renal parameters Urine studies Per orders Plan June 16: Status quo. Labs reviewed. Overall condition unchanged. Patient was transfused and hemoglobin higher. Continue current management. Patient remains full code. June 15: Status quo. Overall condition poor. Very low albumin. Edematous. Hypotensive. Hemoglobin lower. Anemia work-up ordered. I favor transfusion 2 units of packed RBCs. Patient remains full code. I favor supportive care only. Will discuss. June 14: Electrolyte abnormalities addressed. Serum creatinine lower. Continue per current management. June 13: Status unchanged. Lab reviewed. Serum potassium 2.7. IV potassium chloride ordered. Serum creatinine low at 1.6 stable. Blood pressure 90s systolic June 12: Status quo. Labs reviewed. Renal parameters stable. Serum creatinine down to 1.6. Medication list reviewed. Continues to be on midodrine. Continue per consultants. June 11: Status quo. Labs reviewed. Electrolytes adjusted. Serum creatinine down to 1.8. Continue per consultants. June 10: Status quo. Labs reviewed. Phosphorus supplement IV given. Serum creatinine 2. Continue per consultants. June 09: Requires less pressors. Albumin bolus given. 1 dose of Lasix IV ordered as the patient severely edematous. Patient serum albumin is very low. Continue per consultants. June 08: Continues to be intubated. Labs reviewed. Serum creatinine 1.9 unchanged. Blood pressure more stable. Off 1 of the pressors. Continue to monitor renal parameters. Continue per consultants. Patient now on hydrocortisone 100 mg every 8 hours. Will decrease IV fluid. Normal saline down to 50 cc an hour. June 07: Intubated. Labs reviewed. Creatinine 1.9 unchanged. Continue same treatment plan. Per consultants. Overall poor prognosis since the patient remains on pressors and her pulmonary status is worsening. June 06: Remains intubated. Labs reviewed. Creatinine 1.9. Blood pressure systolic 90s. Continue per consultants. June 05: Remains intubated. Labs reviewed. Serum creatinine lower to 2. Vancomycin level lower. Remains hypotensive on pressors. Will increase midodrine to 10 mg every 8 hours. Continue per consultants. Continue to monitor renal parameters. June 04: Patient now in ICU. Intubated. On pressors. Labs reviewed. Will increase midodrine. Aim to keep blood pressure over 100 systolic. Will give albumin bolus. Will check vancomycin level which was elevated when checked previously on June 01. Will monitor renal parameters. Continue per consultants. Subjective ROS Limited/Unobtainable: Yes Objective Objective Last 24 Hour Vital Signs Date Time Temp Pulse Resp B/P (MAP) Pulse Ox O2 Delivery O2 Flow Rate FiO2 06/16/20 09:00 63 26 114/56 (75) 90 06/16/20 08:00 Mechanical Ventilator Mechanical Ventilator 06/16/20 08:00 99.4 63 25 121/59 (79) 94 06/16/20 08:00 70 06/16/20 07:45 117/54 06/16/20 07:24 59 26 70 06/16/20 07:00 73 25 117/54 (75) 93 06/16/20 06:30 69 25 95/50 (65) 93 06/16/20 06:00 99.8 81 20 99/45 (63) 91 06/16/20 05:30 66 26 99/45 (63) 93 06/16/20 05:00 83 23 99/52 (68) 96 06/16/20 05:00 74 27 70 06/16/20 04:30 63 26 111/47 (68) 96 06/16/20 04:00 Mechanical Ventilator Mechanical Ventilator 06/16/20 04:00 100.4 62 26 109/50 (69) 96 06/16/20 04:00 80 06/16/20 04:00 92 06/16/20 03:30 61 26 94/70 (78) 97 06/16/20 03:00 67 26 110/52 (71) 98 06/16/20 02:46 79 28 80 06/16/20 02:30 79 25 93/71 (78) 98 06/16/20 02:00 110/50 06/16/20 02:00 71 25 94/80 (85) 96 06/16/20 01:30 65 25 116/55 (75) 97 06/16/20 01:00 65 26 117/52 (73) 98 06/16/20 01:00 116/55 06/16/20 00:30 68 26 121/68 (85) 98 06/16/20 00:00 98.8 67 26 134/68 (90) 97 06/16/20 00:00 Mechanical Ventilator Mechanical Ventilator 06/16/20 00:00 121/68 06/16/20 00:00 72 06/16/20 00:00 80 06/15/20 23:30 66 26 121/61 (81) 97 06/15/20 23:00 70 26 115/69 (84) 98 06/15/20 23:00 115/69 06/15/20 22:56 76 30 80 06/15/20 22:30 69 25 122/59 (80) 99 06/15/20 22:00 104/54 06/15/20 22:00 67 26 104/54 (71) 100 06/15/20 21:30 72 25 104/56 (72) 100 06/15/20 21:00 68 24 128/65 (86) 100 06/15/20 21:00 128/65 06/15/20 20:30 68 26 100/51 (67) 100 06/15/20 20:00 98.6 72 24 113/56 (75) 100 06/15/20 20:00 113/56 06/15/20 20:00 80 06/15/20 20:00 Mechanical Ventilator Mechanical Ventilator 06/15/20 20:00 69 06/15/20 19:30 73 26 98/48 (65) 100 06/15/20 19:00 101/50 06/15/20 19:00 73 25 101/50 (67) 100 06/15/20 18:53 75 27 90 06/15/20 18:45 69 24 97/51 (66) 100 06/15/20 18:30 99.1 67 26 99/51 (67) 100 06/15/20 18:15 99.4 76 25 99/53 (68) 100 06/15/20 18:00 97/50 06/15/20 18:00 70 25 97/50 (66) 99 06/15/20 17:30 69 26 96/50 (65) 99 06/15/20 17:00 87/74 06/15/20 17:00 74 25 87/74 (78) 99 06/15/20 16:54 67 26 90 06/15/20 16:30 68 26 98/50 (66) 99 06/15/20 16:06 78 06/15/20 16:00 99.2 73 26 98/47 (64) 99 06/15/20 16:00 Mechanical Ventilator Mechanical Ventilator 06/15/20 16:00 98/47 06/15/20 16:00 90 06/15/20 15:30 74 23 91/46 (61) 99 06/15/20 15:16 90 06/15/20 15:14 74 26 90 06/15/20 15:00 107/61 06/15/20 15:00 90 27 107/61 (76) 92 90 06/15/20 14:30 79 28 95/51 (66) 92 06/15/20 14:00 78 28 92/53 (66) 91 06/15/20 14:00 92/53 06/15/20 13:45 90 06/15/20 13:30 77 26 93/77 (82) 93 06/15/20 13:20 75 26 80 06/15/20 13:00 98/50 06/15/20 13:00 70 26 98/50 (66) 93 06/15/20 12:30 71 26 96/50 (65) 95 06/15/20 12:00 Mechanical Ventilator Mechanical Ventilator 06/15/20 12:00 99.6 65 26 95/50 (65) 94 06/15/20 12:00 66 06/15/20 12:00 80 06/15/20 12:00 95/50 06/15/20 11:30 67 26 98/50 (66) 94 06/15/20 11:06 86 30 80 06/15/20 11:00 93/48 06/15/20 11:00 66 26 93/48 (63) 93 06/15/20 10:30 68 26 99/53 (68) 92 Intake and Output 06/15/20 06/16/20 19:00 07:00 Intake Total 668.156 ml 1144.068 ml Output Total 1355 ml 870 ml Balance -686.844 ml 274.068 ml Free Water 10 ml 110 ml IV Total 158.156 ml 134.068 ml Tube Feeding 500 ml 600 ml Blood Product 300 ml Output Urine Total 1355 ml 870 ml # Bowel Movements 1 3 Laboratory Tests 06/15/20 10:09: Iron Level 18L, Total Iron Binding Capacity 112L, Percent Iron Saturation 16, Unsaturated Iron Binding 94L, Ferritin 732H, Vitamin B12 Level 989H, Folate 10.0 06/15/20 13:38: Arterial Blood pH 7.466H, Arterial Blood Partial Pressure CO2 28.0L, Arterial Blood Partial Pressure O2 59.6L, Arterial Blood HCO3 19.7L, Arterial Blood Oxygen Saturation 91.1L, Arterial Blood Base Excess -3.4L, Jonathan Test Positive 06/16/20 04:00: White Blood Count 22.0H, Red Blood Count 2.65L, Hemoglobin 8.6L, Hematocrit 25.4L, Mean Corpuscular Volume 96, Mean Corpuscular Hemoglobin 32.6H, Mean Corpuscular Hemoglobin Concent 34.1, Red Cell Distribution Width 15.5H, Platelet Count 100L, Mean Platelet Volume 10.7H, Neutrophils (%) (Auto) , Lymphocytes (%) (Auto) , Monocytes (%) (Auto) , Eosinophils (%) (Auto) , Basophils (%) (Auto) , Neutrophils % (Manual) [Pending], Lymphocytes % (Manual) [Pending], Platelet Estimate [Pending], Platelet Morphology [Pending], Sodium Level 152H, Potassium Level 3.5, Chloride Level 120H, Carbon Dioxide Level 25, Anion Gap 7, Blood Urea Nitrogen 46H, Creatinine 1.2, Estimat Glomerular Filtration Rate 46.2, Glucose Level 134H, Calcium Level 7.9L, Phosphorus Level 2.8, Magnesium Level 2.1, Total Bilirubin 0.4, Gamma Glutamyl Transpeptidase 45 , Aspartate Amino Transf (AST/SGOT) 81H, Alanine Aminotransferase (ALT/SGPT) 221H, Alkaline Phosphatase 60, C-Reactive Protein, Quantitative 0.6, Pro-B-Type Natriuretic Peptide 6066H, Total Protein 4.4L, Albumin 1.2L, Globulin 3.2, Albumin/Globulin Ratio 0.4L, Thyroid Stimulating Hormone (TSH) 0.894 06/16/20 08:48: Arterial Blood pH 7.479H, Arterial Blood Partial Pressure CO2 29.3L, Arterial Blood Partial Pressure O2 56.8L, Arterial Blood HCO3 21.3L, Arterial Blood Oxygen Saturation 88.6*L, Arterial Blood Base Excess -1.7, Jonathan Test Positive Height (Feet): 5 Height (Inches): 3.00 Weight (Pounds): 172 General Appearance: no apparent distress, lethargic EENT: other - Connected to ventilator Cardiovascular: normal rate Respiratory/Chest: decreased breath sounds Abdomen: distended Extremities: other - Edematous extremities Keron Pitt MD Jun 16, 2020 10:06
--- NOTE | 2020-06-16 10:13 | Pulmonolgy Critical Care Note ---
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, 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, 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 with: nurses, consultants, special education case managerbusiness affairs manager - Objective Last 24 Hour Vital Signs Date Time Temp Pulse Resp B/P (MAP) Pulse Ox O2 Delivery O2 Flow Rate FiO2 06/16/20 09:00 63 26 114/56 (75) 90 06/16/20 08:00 Mechanical Ventilator Mechanical Ventilator 06/16/20 08:00 99.4 63 25 121/59 (79) 94 06/16/20 08:00 70 06/16/20 07:45 117/54 06/16/20 07:24 59 26 70 06/16/20 07:00 73 25 117/54 (75) 93 06/16/20 06:30 69 25 95/50 (65) 93 06/16/20 06:00 99.8 81 20 99/45 (63) 91 06/16/20 05:30 66 26 99/45 (63) 93 06/16/20 05:00 83 23 99/52 (68) 96 06/16/20 05:00 74 27 70 06/16/20 04:30 63 26 111/47 (68) 96 06/16/20 04:00 Mechanical Ventilator Mechanical Ventilator 06/16/20 04:00 100.4 62 26 109/50 (69) 96 06/16/20 04:00 80 06/16/20 04:00 92 06/16/20 03:30 61 26 94/70 (78) 97 06/16/20 03:00 67 26 110/52 (71) 98 06/16/20 02:46 79 28 80 06/16/20 02:30 79 25 93/71 (78) 98 06/16/20 02:00 110/50 9/8/20 02:00 71 25 94/80 (85) 96 06/16/20 01:30 65 25 116/55 (75) 97 06/16/20 01:00 65 26 117/52 (73) 98 06/16/20 01:00 116/55 06/16/20 00:30 68 26 121/68 (85) 98 06/16/20 00:00 98.8 67 26 134/68 (90) 97 06/16/20 00:00 Mechanical Ventilator Mechanical Ventilator 06/16/20 00:00 121/68 06/16/20 00:00 72 06/16/20 00:00 80 06/15/20 23:30 66 26 121/61 (81) 97 06/15/20 23:00 70 26 115/69 (84) 98 06/15/20 23:00 115/69 06/15/20 22:56 76 30 80 06/15/20 22:30 69 25 122/59 (80) 99 06/15/20 22:00 104/54 06/15/20 22:00 67 26 104/54 (71) 100 06/15/20 21:30 72 25 104/56 (72) 100 06/15/20 21:00 68 24 128/65 (86) 100 06/15/20 21:00 128/65 06/15/20 20:30 68 26 100/51 (67) 100 06/15/20 20:00 98.6 72 24 113/56 (75) 100 06/15/20 20:00 113/56 06/15/20 20:00 80 06/15/20 20:00 Mechanical Ventilator Mechanical Ventilator 06/15/20 20:00 69 06/15/20 19:30 73 26 98/48 (65) 100 06/15/20 19:00 101/50 06/15/20 19:00 73 25 101/50 (67) 100 06/15/20 18:53 75 27 90 06/15/20 18:45 69 24 97/51 (66) 100 06/15/20 18:30 99.1 67 26 99/51 (67) 100 06/15/20 18:15 99.4 76 25 99/53 (68) 100 06/15/20 18:00 97/50 06/15/20 18:00 70 25 97/50 (66) 99 06/15/20 17:30 69 26 96/50 (65) 99 06/15/20 17:00 87/74 06/15/20 17:00 74 25 87/74 (78) 99 06/15/20 16:54 67 26 90 06/15/20 16:30 68 26 98/50 (66) 99 06/15/20 16:06 78 06/15/20 16:00 99.2 73 26 98/47 (64) 99 06/15/20 16:00 Mechanical Ventilator Mechanical Ventilator 06/15/20 16:00 98/47 06/15/20 16:00 90 06/15/20 15:30 74 23 91/46 (61) 99 06/15/20 15:16 90 06/15/20 15:14 74 26 90 06/15/20 15:00 107/61 06/15/20 15:00 90 27 107/61 (76) 92 90 06/15/20 14:30 79 28 95/51 (66) 92 06/15/20 14:00 78 28 92/53 (66) 91 06/15/20 14:00 92/53 06/15/20 13:45 90 06/15/20 13:30 77 26 93/77 (82) 93 06/15/20 13:20 75 26 80 06/15/20 13:00 98/50 06/15/20 13:00 70 26 98/50 (66) 93 06/15/20 12:30 71 26 96/50 (65) 95 06/15/20 12:00 Mechanical Ventilator Mechanical Ventilator 06/15/20 12:00 99.6 65 26 95/50 (65) 94 06/15/20 12:00 66 06/15/20 12:00 80 06/15/20 12:00 95/50 06/15/20 11:30 67 26 98/50 (66) 94 06/15/20 11:06 86 30 80 06/15/20 11:00 93/48 06/15/20 11:00 66 26 93/48 (63) 93 06/15/20 10:30 68 26 99/53 (68) 92 Status: awake Condition: critical HEENT: atraumatic, normocephalic Lungs: chest wall tender Heart: HR/BP stable Abdomen: soft Extremities: no C/C/E Micro: Microbiology Date/Time Source Procedure Growth Status 06/14/20 13:35 Blood Blood Culture - Preliminary NO GROWTH AFTER 24 HOURS Resulted 06/14/20 13:35 Blood Blood Culture - Preliminary NO GROWTH AFTER 24 HOURS Resulted 06/15/20 14:00 Indwelling Cath Urine Culture - Preliminary NO GROWTH Resulted Accucheck: 131 Critical Care - Subjective ROS Limited/Unobtainable: Yes Condition: critical FI02: 70 Vent Support Breath Rate: 26 Vent Support Mode: AC Vent Tidal Volume: 500 Sputum Amount: Small PEEP: 12.0 PIP: 41 Tube Feeding Amount: 50 I&O: Intake and Output 06/15/20 06/16/20 19:00 07:00 Intake Total 668.156 ml 1144.068 ml Output Total 1355 ml 870 ml Balance -686.844 ml 274.068 ml Free Water 10 ml 110 ml IV Total 158.156 ml 134.068 ml Tube Feeding 500 ml 600 ml Blood Product 300 ml Output Urine Total 1355 ml 870 ml # Bowel Movements 1 3 ET-Tube: 7.5 ET Position: 22 Labs: Laboratory Tests Test 06/15/20 13:38 06/16/20 04:00 06/16/20 08:48 Arterial Blood pH 7.466 (7.350-7.450) 7.479 (7.350-7.450) Arterial Blood Partial Pressure CO2 28.0 mmHg (35.0-45.0) L 29.3 mmHg (35.0-45.0) L Arterial Blood Partial Pressure O2 59.6 mmHg (75.0-100.0) L 56.8 mmHg (75.0-100.0) L Arterial Blood HCO3 19.7 mmol/L (22.0-26.0) L 21.3 mmol/L (22.0-26.0) L Arterial Blood Oxygen Saturation 91.1 % (95-100) L 88.6 % (95-100) *L Arterial Blood Base Excess -3.4 (-2-2) L -1.7 (-2-2) Jonathan Test Positive Positive White Blood Count 22.0 K/UL (4.8-10.8) H Red Blood Count 2.65 M/UL (4.20-5.40) L Hemoglobin 8.6 G/DL (12.0-16.0) L Hematocrit 25.4 % (37.0-47.0) L Mean Corpuscular Volume 96 FL (80-99) Mean Corpuscular Hemoglobin 32.6 PG (27.0-31.0) H Mean Corpuscular Hemoglobin Concent 34.1 G/DL (32.0-36.0) Red Cell Distribution Width 15.5 % (11.6-14.8) H Platelet Count 100 K/UL (150-450) L Mean Platelet Volume 10.7 FL (6.5-10.1) H Neutrophils (%) (Auto) % (45.0-75.0) Lymphocytes (%) (Auto) % (20.0-45.0) Monocytes (%) (Auto) % (1.0-10.0) Eosinophils (%) (Auto) % (0.0-3.0) Basophils (%) (Auto) % (0.0-2.0) Differential Total Cells Counted 100 Neutrophils % (Manual) 89 % (45-75) H Lymphocytes % (Manual) 5 % (20-45) L Monocytes % (Manual) 6 % (1-10) Eosinophils % (Manual) 0 % (0-3) Basophils % (Manual) 0 % (0-2) Band Neutrophils 0 % (0-8) Platelet Estimate Decreased L Platelet Morphology Giant Platelets Rare Polychromasia 1+ Hypochromasia 1+ Anisocytosis 1+ Sodium Level 152 MMOL/L (136-145) H Potassium Level 3.5 MMOL/L (3.5-5.1) Chloride Level 120 MMOL/L (98-107) H Carbon Dioxide Level 25 MMOL/L (21-32) Anion Gap 7 mmol/L (5-15) Blood Urea Nitrogen 46 mg/dL (7-18) H Creatinine 1.2 MG/DL (0.55-1.30) Estimat Glomerular Filtration Rate 46.2 mL/min (>60) Glucose Level 134 MG/DL (74-106) H Calcium Level 7.9 MG/DL (8.5-10.1) L Phosphorus Level 2.8 MG/DL (2.5-4.9) Magnesium Level 2.1 MG/DL (1.8-2.4) Total Bilirubin 0.4 MG/DL (0.2-1.0) Gamma Glutamyl Transpeptidase 45 U/L (5-85) Aspartate Amino Transf (AST/SGOT) 81 U/L (15-37) H Alanine Aminotransferase (ALT/SGPT) 221 U/L (12-78) H Alkaline Phosphatase 60 U/L (46-116) C-Reactive Protein, Quantitative 0.6 mg/dL (0.00-0.90) Pro-B-Type Natriuretic Peptide 6066 pg/mL (0-125) H Total Protein 4.4 G/DL (6.4-8.2) L Albumin 1.2 G/DL (3.4-5.0) L Globulin 3.2 g/dL Albumin/Globulin Ratio 0.4 (1.0-2.7) L Thyroid Stimulating Hormone (TSH) 0.894 uiU/mL (0.358-3.740) Elayne Allred MD Jun 16, 2020 10:13
[2020-06-16] MEDS: DOPamine 400mg/250ml 250 ML IV SCH (11:15)
--- NOTE | 2020-06-16 11:52 | Infectious Diseases Prog Note ---
Assessment/Plan ASSESSMENT: sp code blue 06/03 Septic Shock; SP Fever, recurrent Leukocytosis; recurrent; worsening -06/14 Bcx NTD ucx NTD sp cx p -06/03 u/a no pyuria Pneumonia.- COVID 19 neg x3 Acute hypoxic resp failure on VM> NRB 15l 100%; hypoxic on ABG> now VDRF 06/03 - Fio2 80% >100% 06/05> 60% 06/09 >80% 06/10 -06/13 CXR:Small bilateral pleural effusions with minor edema. Stable edema with mild worsening in the degree of pleural effusion on the right. -06/09 sp cx Neg 06/08 CXR: Extensive bilateral interstitial and airspace disease appears similar to the prior exam. Moderate to large bilateral pleural effusions appear unchanged. 06/05 CXR: Increasing left upper lobe dense consolidation and likely increasing bilateral pleural fluid. Persistent diffuse dense consolidation elsewhere -06/03 sp cx normal resp marie -06/02 CXR: Increased atelectasis of the right lung, since prior exam of 3 days earlier. New or increased right pleural effusion. Increased left basilar consolidation and/or pleural fluid -COVID Rapid PCR neg 05/31, 05/31, 06/03 -05/30 spc x Group G strep -05/30 CXR: Reduced lung volumes. Patchy bilateral predominantly interstitial pulmonary opacities. Could be from edema and/or pneumonia. There is a broader differential. -legionella ag urine, blasto ab, Histo ab, HIV ab screen, FRANCIS, ANCA neg Persistent, high grade bacteremia- -05/30 Bcx 4/4 sets S. haemolyticus; 05/31 Bcx 3/4 S/ epi; 06/04 Bcx 1.4 S. warnerri; 06/06 Bcx Neg -2d echo: no vegetaions seen ua/ wbc 10-15, nit neg, leuk +1; ucx Neg LEANN; -supratherapeutic vanco levels -Seizure disorder. - Hypothyroidism. - Down syndrome. History of PEG tube placement. PR resident PLAN: -f/u repeat blood Cx sputum and Urine Cx Cont Meropenem#13/14 (abx d #17) given resp decompensation Empiric Amikacin x1 pending repeat cultures 06/12/20 SP Daptomycin #11 06/10 SP MIcafungin #7, Linezolid #5 06/05 SP Azithromycin #7/7 06/03 SP Ceftriaxone #2 06/02 SP IV Vancomycin #4, Zosyn #4 05/30 SP Cefepime x1, Flagyl x1 - Monitor CBC, BMP. -f/u Cocci ab, CrAg .f/u Repeat cx - COVID neg x3 - Monitor chest x-ray. - Monitor the patient's clinical course and labs. Based on those, we will do further recommendation. -Bcx from picc line, cdiff if diarrhea Thank you, Dr. Allred, for allowing me to participate in the care of this patient. I will follow the patient with you at this hospitalization. Discussed with RN Subjective Allergies: Coded Allergies: No Known Allergies (Unverified , 10/16/18) Tm 100.4 off pressors wbc increasing Fio2 100% Objective Last 24 Hour Vital Signs Date Time Temp Pulse Resp B/P (MAP) Pulse Ox O2 Delivery O2 Flow Rate FiO2 06/16/20 11:26 100 06/16/20 11:00 60 26 113/56 (75) 92 06/16/20 10:00 61 26 120/59 (79) 91 06/16/20 09:00 63 26 114/56 (75) 90 06/16/20 08:00 Mechanical Ventilator Mechanical Ventilator 06/16/20 08:00 99.4 63 25 121/59 (79) 94 06/16/20 08:00 70 06/16/20 07:45 117/54 06/16/20 07:24 59 26 70 06/16/20 07:00 73 25 117/54 (75) 93 06/16/20 06:30 69 25 95/50 (65) 93 06/16/20 06:00 99.8 81 20 99/45 (63) 91 06/16/20 05:30 66 26 99/45 (63) 93 06/16/20 05:00 83 23 99/52 (68) 96 06/16/20 05:00 74 27 70 06/16/20 04:30 63 26 111/47 (68) 96 06/16/20 04:00 Mechanical Ventilator Mechanical Ventilator 06/16/20 04:00 100.4 62 26 109/50 (69) 96 06/16/20 04:00 80 06/16/20 04:00 92 06/16/20 03:30 61 26 94/70 (78) 97 06/16/20 03:00 67 26 110/52 (71) 98 06/16/20 02:46 79 28 80 06/16/20 02:30 79 25 93/71 (78) 98 06/16/20 02:00 110/50 06/16/20 02:00 71 25 94/80 (85) 96 06/16/20 01:30 65 25 116/55 (75) 97 06/16/20 01:00 65 26 117/52 (73) 98 06/16/20 01:00 116/55 06/16/20 00:30 68 26 121/68 (85) 98 06/16/20 00:00 98.8 67 26 134/68 (90) 97 06/16/20 00:00 Mechanical Ventilator Mechanical Ventilator 06/16/20 00:00 121/68 06/16/20 00:00 72 06/16/20 00:00 80 06/15/20 23:30 66 26 121/61 (81) 97 06/15/20 23:00 70 26 115/69 (84) 98 06/15/20 23:00 115/69 06/15/20 22:56 76 30 80 06/15/20 22:30 69 25 122/59 (80) 99 06/15/20 22:00 104/54 06/15/20 22:00 67 26 104/54 (71) 100 06/15/20 21:30 72 25 104/56 (72) 100 06/15/20 21:00 68 24 128/65 (86) 100 06/15/20 21:00 128/65 06/15/20 20:30 68 26 100/51 (67) 100 06/15/20 20:00 98.6 72 24 113/56 (75) 100 06/15/20 20:00 113/56 06/15/20 20:00 80 06/15/20 20:00 Mechanical Ventilator Mechanical Ventilator 06/15/20 20:00 69 06/15/20 19:30 73 26 98/48 (65) 100 06/15/20 19:00 101/50 06/15/20 19:00 73 25 101/50 (67) 100 06/15/20 18:53 75 27 90 06/15/20 18:45 69 24 97/51 (66) 100 06/15/20 18:30 99.1 67 26 99/51 (67) 100 06/15/20 18:15 99.4 76 25 99/53 (68) 100 06/15/20 18:00 97/50 06/15/20 18:00 70 25 97/50 (66) 99 06/15/20 17:30 69 26 96/50 (65) 99 06/15/20 17:00 87/74 06/15/20 17:00 74 25 87/74 (78) 99 06/15/20 16:54 67 26 90 06/15/20 16:30 68 26 98/50 (66) 99 06/15/20 16:06 78 06/15/20 16:00 99.2 73 26 98/47 (64) 99 06/15/20 16:00 Mechanical Ventilator Mechanical Ventilator 06/15/20 16:00 98/47 06/15/20 16:00 90 06/15/20 15:30 74 23 91/46 (61) 99 06/15/20 15:16 90 06/15/20 15:14 74 26 90 06/15/20 15:00 107/61 06/15/20 15:00 90 27 107/61 (76) 92 90 06/15/20 14:30 79 28 95/51 (66) 92 06/15/20 14:00 78 28 92/53 (66) 91 06/15/20 14:00 92/53 06/15/20 13:45 90 06/15/20 13:30 77 26 93/77 (82) 93 06/15/20 13:20 75 26 80 06/15/20 13:00 98/50 06/15/20 13:00 70 26 98/50 (66) 93 06/15/20 12:30 71 26 96/50 (65) 95 06/15/20 12:00 Mechanical Ventilator Mechanical Ventilator 06/15/20 12:00 99.6 65 26 95/50 (65) 94 06/15/20 12:00 66 06/15/20 12:00 80 06/15/20 12:00 95/50 Height (Feet): 5 Height (Inches): 3.00 Weight (Pounds): 172 HEENT: No pale conjunctivae. No icterus. ETT in place NECK: No lymphadenopathy. CHEST: Coarse breathing sounds. HEART: S1 and S2. ABDOMEN: Soft. PEG tube in place. EXTREMITIES: No cyanosis at this time . SKIN: no rash Microbiology Date/Time Source Procedure Growth Status 06/14/20 13:35 Blood Blood Culture - Preliminary NO GROWTH AFTER 24 HOURS Resulted 06/14/20 13:35 Blood Blood Culture - Preliminary NO GROWTH AFTER 24 HOURS Resulted 06/15/20 14:00 Indwelling Cath Urine Culture - Preliminary NO GROWTH Resulted Laboratory Tests Test 06/15/20 13:38 06/16/20 04:00 06/16/20 08:48 Arterial Blood pH 7.466 (7.350-7.450) 7.479 (7.350-7.450) Arterial Blood Partial Pressure CO2 28.0 mmHg (35.0-45.0) L 29.3 mmHg (35.0-45.0) L Arterial Blood Partial Pressure O2 59.6 mmHg (75.0-100.0) L 56.8 mmHg (75.0-100.0) L Arterial Blood HCO3 19.7 mmol/L (22.0-26.0) L 21.3 mmol/L (22.0-26.0) L Arterial Blood Oxygen Saturation 91.1 % (95-100) L 88.6 % (95-100) *L Arterial Blood Base Excess -3.4 (-2-2) L -1.7 (-2-2) Jonathan Test Positive Positive White Blood Count 22.0 K/UL (4.8-10.8) H Red Blood Count 2.65 M/UL (4.20-5.40) L Hemoglobin 8.6 G/DL (12.0-16.0) L Hematocrit 25.4 % (37.0-47.0) L Mean Corpuscular Volume 96 FL (80-99) Mean Corpuscular Hemoglobin 32.6 PG (27.0-31.0) H Mean Corpuscular Hemoglobin Concent 34.1 G/DL (32.0-36.0) Red Cell Distribution Width 15.5 % (11.6-14.8) H Platelet Count 100 K/UL (150-450) L Mean Platelet Volume 10.7 FL (6.5-10.1) H Neutrophils (%) (Auto) % (45.0-75.0) Lymphocytes (%) (Auto) % (20.0-45.0) Monocytes (%) (Auto) % (1.0-10.0) Eosinophils (%) (Auto) % (0.0-3.0) Basophils (%) (Auto) % (0.0-2.0) Differential Total Cells Counted 100 Neutrophils % (Manual) 89 % (45-75) H Lymphocytes % (Manual) 5 % (20-45) L Monocytes % (Manual) 6 % (1-10) Eosinophils % (Manual) 0 % (0-3) Basophils % (Manual) 0 % (0-2) Band Neutrophils 0 % (0-8) Platelet Estimate Decreased L Platelet Morphology Giant Platelets Rare Polychromasia 1+ Hypochromasia 1+ Anisocytosis 1+ Sodium Level 152 MMOL/L (136-145) H Potassium Level 3.5 MMOL/L (3.5-5.1) Chloride Level 120 MMOL/L (98-107) H Carbon Dioxide Level 25 MMOL/L (21-32) Anion Gap 7 mmol/L (5-15) Blood Urea Nitrogen 46 mg/dL (7-18) H Creatinine 1.2 MG/DL (0.55-1.30) Estimat Glomerular Filtration Rate 46.2 mL/min (>60) Glucose Level 134 MG/DL (74-106) H Calcium Level 7.9 MG/DL (8.5-10.1) L Phosphorus Level 2.8 MG/DL (2.5-4.9) Magnesium Level 2.1 MG/DL (1.8-2.4) Total Bilirubin 0.4 MG/DL (0.2-1.0) Gamma Glutamyl Transpeptidase 45 U/L (5-85) Aspartate Amino Transf (AST/SGOT) 81 U/L (15-37) H Alanine Aminotransferase (ALT/SGPT) 221 U/L (12-78) H Alkaline Phosphatase 60 U/L (46-116) C-Reactive Protein, Quantitative 0.6 mg/dL (0.00-0.90) Pro-B-Type Natriuretic Peptide 6066 pg/mL (0-125) H Total Protein 4.4 G/DL (6.4-8.2) L Albumin 1.2 G/DL (3.4-5.0) L Globulin 3.2 g/dL Albumin/Globulin Ratio 0.4 (1.0-2.7) L Thyroid Stimulating Hormone (TSH) 0.894 uiU/mL (0.358-3.740) Current Medications Medications (Trade) Dose Ordered Sig/Katy Route PRN Reason Start Time Stop Time Status Last Admin Dose Admin Acetaminophen (Tylenol) 650 mg Q4H PRN GT FEVER 06/03/20 11:45 07/03/20 11:44 06/15/20 03:17 Chlorhexidine Gluconate (Alla-Hex 2%) 1 applic DAILY@2000 TOPIC 06/08/20 20:00 09/06/20 19:59 06/15/20 19:54 Clotrimazole (Lotrimin) 1 applic Q12HR TOPIC 06/07/20 13:00 09/05/20 12:59 06/16/20 08:18 Dextrose (Dextrose 50%) 25 ml Q30M PRN IV Hypoglycemia 06/03/20 11:30 08/28/20 11:29 Dextrose (Dextrose 50%) 50 ml Q30M PRN IV Hypoglycemia 06/03/20 11:30 08/28/20 11:29 Dopamine HCl/ Dextrose 250 ml @ 0 mls/hr Q24H IV 06/12/20 11:15 09/10/20 11:14 06/14/20 19:47 Hydrocortisone (Solu-CORTEF) 100 mg EVERY 8 HOURS IV 06/07/20 14:00 09/05/20 13:59 06/16/20 06:07 Levothyroxine Sodium (Synthroid) 75 mcg DAILY GT 06/04/20 09:00 06/30/20 08:59 06/16/20 08:16 Lorazepam (Ativan 2mg/ml 1ml) 2 mg Q2H PRN IV For Anxiety 06/12/20 17:30 06/19/20 17:29 06/12/20 17:37 Meropenem 1 gm/ Sodium Chloride 55 ml @ 110 mls/hr Q8H IVPB 06/14/20 12:00 06/19/20 11:59 06/16/20 04:08 Midodrine (Pro-Amatine) 10 mg Q8HR GT 06/05/20 14:00 09/03/20 13:59 06/16/20 06:07 Norepinephrine Bitartrate 16 mg/ Dextrose 500 ml @ 0 mls/hr Q24H IV 06/08/20 07:45 07/07/20 12:59 06/12/20 08:43 Ondansetron HCl (Zofran) 4 mg Q6H PRN IVP Nausea & Vomiting 06/03/20 12:00 06/29/20 11:59 Pantoprazole (Protonix) 40 mg DAILY IV 06/04/20 09:00 06/30/20 08:59 06/16/20 08:17 Phenylephrine HCl 50 mg/Dextrose 250 ml @ 0 mls/hr Q24H PRN IV For hypotension 06/06/20 17:45 07/06/20 17:44 06/08/20 01:49 Polyethylene Glycol (Miralax) 17 gm DAILYPRN PRN GT Constipation 06/03/20 12:00 06/29/20 11:59 Valproic Acid (Depakene) 500 mg EVERY 8 HOURS GT 06/03/20 14:00 06/29/20 21:59 06/16/20 06:07 Suki Camejo M.D. Jun 16, 2020 11:52
[2020-06-16] MEDS ORDERED: Amikacin Rx to dose MISC PRN (12:00)
--- NOTE | 2020-06-16 12:45 | NUR ---
NURSE NOTES: Seen by Dr. Pantoja and assessed patient. Updated patient's status. No new orders at this time.
--- NOTE | 2020-06-16 12:47 | Cardiology Progress Note ---
Assessment/Plan Assessment/Plan sepsis respiratory failure ards renal insuf bacteremia abn cardiac enzyme due to demand sinus rafael stable thrombocytopenia resolved hypernatremia covid isolation removed as covid -x3 min trop abn ekg last one form 05/30 reviewed non ischemic echo preformed 06/02 nl lv function now off pressor vent support abx ekg personally reviewed tele personally reviewed no pauses wbc up na increased renal insuf min better 3rd spacing alot now on peep 12 an 100 % oxygen cxr form 06/13 reviewed tsh seems fine Subjective ROS Limited/Unobtainable: Yes Subjective on a vent not communicative Objective Last 24 Hour Vital Signs Date Time Temp Pulse Resp B/P (MAP) Pulse Ox O2 Delivery O2 Flow Rate FiO2 06/16/20 11:26 100 06/16/20 11:24 58 26 100 06/16/20 11:15 113/56 06/16/20 11:00 60 26 113/56 (75) 92 06/16/20 10:00 61 26 120/59 (79) 91 06/16/20 09:00 63 26 114/56 (75) 90 06/16/20 08:00 Mechanical Ventilator Mechanical Ventilator 06/16/20 08:00 99.4 63 25 121/59 (79) 94 06/16/20 08:00 70 06/16/20 07:45 117/54 06/16/20 07:24 59 26 70 06/16/20 07:00 73 25 117/54 (75) 93 06/16/20 06:30 69 25 95/50 (65) 93 06/16/20 06:00 99.8 81 20 99/45 (63) 91 06/16/20 05:30 66 26 99/45 (63) 93 06/16/20 05:00 83 23 99/52 (68) 96 06/16/20 05:00 74 27 70 06/16/20 04:30 63 26 111/47 (68) 96 06/16/20 04:00 Mechanical Ventilator Mechanical Ventilator 06/16/20 04:00 100.4 62 26 109/50 (69) 96 06/16/20 04:00 80 06/16/20 04:00 92 06/16/20 03:30 61 26 94/70 (78) 97 06/16/20 03:00 67 26 110/52 (71) 98 06/16/20 02:46 79 28 80 06/16/20 02:30 79 25 93/71 (78) 98 06/16/20 02:00 110/50 06/16/20 02:00 71 25 94/80 (85) 96 06/16/20 01:30 65 25 116/55 (75) 97 06/16/20 01:00 65 26 117/52 (73) 98 06/16/20 01:00 116/55 06/16/20 00:30 68 26 121/68 (85) 98 06/16/20 00:00 98.8 67 26 134/68 (90) 97 06/16/20 00:00 Mechanical Ventilator Mechanical Ventilator 06/16/20 00:00 121/68 06/16/20 00:00 72 06/16/20 00:00 80 06/15/20 23:30 66 26 121/61 (81) 97 06/15/20 23:00 70 26 115/69 (84) 98 06/15/20 23:00 115/69 06/15/20 22:56 76 30 80 06/15/20 22:30 69 25 122/59 (80) 99 06/15/20 22:00 104/54 06/15/20 22:00 67 26 104/54 (71) 100 06/15/20 21:30 72 25 104/56 (72) 100 06/15/20 21:00 68 24 128/65 (86) 100 06/15/20 21:00 128/65 06/15/20 20:30 68 26 100/51 (67) 100 06/15/20 20:00 98.6 72 24 113/56 (75) 100 06/15/20 20:00 113/56 06/15/20 20:00 80 06/15/20 20:00 Mechanical Ventilator Mechanical Ventilator 06/15/20 20:00 69 06/15/20 19:30 73 26 98/48 (65) 100 06/15/20 19:00 101/50 06/15/20 19:00 73 25 101/50 (67) 100 06/15/20 18:53 75 27 90 06/15/20 18:45 69 24 97/51 (66) 100 06/15/20 18:30 99.1 67 26 99/51 (67) 100 9/7/20 18:15 99.4 76 25 99/53 (68) 100 06/15/20 18:00 97/50 06/15/20 18:00 70 25 97/50 (66) 99 06/15/20 17:30 69 26 96/50 (65) 99 06/15/20 17:00 87/74 06/15/20 17:00 74 25 87/74 (78) 99 06/15/20 16:54 67 26 90 06/15/20 16:30 68 26 98/50 (66) 99 06/15/20 16:06 78 06/15/20 16:00 99.2 73 26 98/47 (64) 99 06/15/20 16:00 Mechanical Ventilator Mechanical Ventilator 06/15/20 16:00 98/47 06/15/20 16:00 90 06/15/20 15:30 74 23 91/46 (61) 99 06/15/20 15:16 90 06/15/20 15:14 74 26 90 06/15/20 15:00 107/61 06/15/20 15:00 90 27 107/61 (76) 92 90 06/15/20 14:30 79 28 95/51 (66) 92 06/15/20 14:00 78 28 92/53 (66) 91 06/15/20 14:00 92/53 06/15/20 13:45 90 06/15/20 13:30 77 26 93/77 (82) 93 06/15/20 13:20 75 26 80 06/15/20 13:00 98/50 06/15/20 13:00 70 26 98/50 (66) 93 General Appearance: no apparent distress, alert, on vent, patient on isolation Neck: supple Cardiovascular: normal rate Respiratory/Chest: lungs clear - ant Abdomen: normal bowel sounds, non tender, soft Extremities: no swelling Intake and Output 06/15/20 06/16/20 19:00 07:00 Intake Total 668.156 ml 1144.068 ml Output Total 1355 ml 870 ml Balance -686.844 ml 274.068 ml Free Water 10 ml 110 ml IV Total 158.156 ml 134.068 ml Tube Feeding 500 ml 600 ml Blood Product 300 ml Output Urine Total 1355 ml 870 ml # Bowel Movements 1 3 Laboratory Tests Test 06/15/20 13:38 06/16/20 04:00 06/16/20 08:48 Arterial Blood pH 7.466 (7.350-7.450) 7.479 (7.350-7.450) Arterial Blood Partial Pressure CO2 28.0 mmHg (35.0-45.0) L 29.3 mmHg (35.0-45.0) L Arterial Blood Partial Pressure O2 59.6 mmHg (75.0-100.0) L 56.8 mmHg (75.0-100.0) L Arterial Blood HCO3 19.7 mmol/L (22.0-26.0) L 21.3 mmol/L (22.0-26.0) L Arterial Blood Oxygen Saturation 91.1 % (95-100) L 88.6 % (95-100) *L Arterial Blood Base Excess -3.4 (-2-2) L -1.7 (-2-2) Jonathan Test Positive Positive White Blood Count 22.0 K/UL (4.8-10.8) H Red Blood Count 2.65 M/UL (4.20-5.40) L Hemoglobin 8.6 G/DL (12.0-16.0) L Hematocrit 25.4 % (37.0-47.0) L Mean Corpuscular Volume 96 FL (80-99) Mean Corpuscular Hemoglobin 32.6 PG (27.0-31.0) H Mean Corpuscular Hemoglobin Concent 34.1 G/DL (32.0-36.0) Red Cell Distribution Width 15.5 % (11.6-14.8) H Platelet Count 100 K/UL (150-450) L Mean Platelet Volume 10.7 FL (6.5-10.1) H Neutrophils (%) (Auto) % (45.0-75.0) Lymphocytes (%) (Auto) % (20.0-45.0) Monocytes (%) (Auto) % (1.0-10.0) Eosinophils (%) (Auto) % (0.0-3.0) Basophils (%) (Auto) % (0.0-2.0) Differential Total Cells Counted 100 Neutrophils % (Manual) 89 % (45-75) H Lymphocytes % (Manual) 5 % (20-45) L Monocytes % (Manual) 6 % (1-10) Eosinophils % (Manual) 0 % (0-3) Basophils % (Manual) 0 % (0-2) Band Neutrophils 0 % (0-8) Platelet Estimate Decreased L Platelet Morphology Giant Platelets Rare Polychromasia 1+ Hypochromasia 1+ Anisocytosis 1+ Sodium Level 152 MMOL/L (136-145) H Potassium Level 3.5 MMOL/L (3.5-5.1) Chloride Level 120 MMOL/L (98-107) H Carbon Dioxide Level 25 MMOL/L (21-32) Anion Gap 7 mmol/L (5-15) Blood Urea Nitrogen 46 mg/dL (7-18) H Creatinine 1.2 MG/DL (0.55-1.30) Estimat Glomerular Filtration Rate 46.2 mL/min (>60) Glucose Level 134 MG/DL (74-106) H Calcium Level 7.9 MG/DL (8.5-10.1) L Phosphorus Level 2.8 MG/DL (2.5-4.9) Magnesium Level 2.1 MG/DL (1.8-2.4) Total Bilirubin 0.4 MG/DL (0.2-1.0) Gamma Glutamyl Transpeptidase 45 U/L (5-85) Aspartate Amino Transf (AST/SGOT) 81 U/L (15-37) H Alanine Aminotransferase (ALT/SGPT) 221 U/L (12-78) H Alkaline Phosphatase 60 U/L (46-116) C-Reactive Protein, Quantitative 0.6 mg/dL (0.00-0.90) Pro-B-Type Natriuretic Peptide 6066 pg/mL (0-125) H Total Protein 4.4 G/DL (6.4-8.2) L Albumin 1.2 G/DL (3.4-5.0) L Globulin 3.2 g/dL Albumin/Globulin Ratio 0.4 (1.0-2.7) L Thyroid Stimulating Hormone (TSH) 0.894 uiU/mL (0.358-3.740) Microbiology Date/Time Source Procedure Growth Status 06/14/20 13:35 Blood Blood Culture - Preliminary NO GROWTH AFTER 24 HOURS Resulted 06/14/20 13:35 Blood Blood Culture - Preliminary NO GROWTH AFTER 24 HOURS Resulted 06/15/20 14:00 Indwelling Cath Urine Culture - Preliminary NO GROWTH Resulted Josue Pantoja MD Jun 16, 2020:47
--- NOTE | 2020-06-16 13:12 | NUR ---
NURSE NOTES: Sent blood culture to lab.
--- NOTE | 2020-06-16 13:43 | Diagnostic Imaging Report ---
Indication: Dyspnea Technique: One view of the chest Comparison: 06/13/2020 Findings: Left arm PICC is again demonstrated. Bilateral interstitial and airspace infiltrates versus edema again demonstrated, unchanged. Left-sided pleural effusion appears slightly decreased. Small right-sided pleural effusion is probably unchanged. The heart remains enlarged. Impression: Unchanged bilateral parenchymal disease Evidence of slightly improved left pleural effusion
[2020-06-16] MEDS: Amikacin 1,000 MG in NS 110 ML IV SCH (13:56)
--- NOTE | 2020-06-16 14:15 | Consultation ---
DATE OF CONSULTATION: 06/16/2020 CHIEF COMPLAINT: Anemia, GI bleeding, dysphagia. HISTORY OF PRESENT ILLNESS: Most of history per chart. The patient is intubated in ICU. PAST MEDICAL HISTORY: 1. History of Down syndrome. 2. Dysphagia with G-tube. 3. Seizure disorder. 4. Hypothyroidism. 5. LEANN. 6. Pneumonia. 7. Sepsis. ALLERGIES: No known allergies. MEDICATIONS: Please see medication reconciliation list. SOCIAL HISTORY: There is no history of tobacco, alcohol, or drug abuse. FAMILY HISTORY: Noncontributory. REVIEW OF SYSTEMS: Limited. PHYSICAL EXAMINATION: VITAL SIGNS: Temperature is 99.4, pulse 68, respirations 26, blood pressure is 113/56. HEENT: Normocephalic and atraumatic. Pale conjunctivae. NECK: Supple. CARDIOVASCULAR: Tachy. Regular rate. Plus S1, S2. LUNGS: Decreased breath sounds bilaterally. The patient has crackles on both lung bases. ABDOMEN: Soft and nontender. G-tube in place. No rebound. No guarding. No peritoneal sign. EXTREMITIES: Bilateral lower extremity edema. The patient has anasarca. LABORATORY DATA: White count is 22,000, hemoglobin 8.6, hematocrit 25, platelets of 100. Chem-7, sodium is 152, potassium 3.5, BUN is 46, creatinine is 1.2. ASSESSMENT AND PLAN: This is a 59-year-old female with numerous medical problems. From GI standpoint, has a dysphagia with a G-tube, anemia. PLAN: In terms of anemia, the patient has no overt evidence of GI bleeding, although the stool OB x1 has been positive. The patient had a unit of blood transfusion with a good response. The patient is very sick and not very stable to have any GI procedures. At this time, she is on vent setting. Plan to monitor hemoglobin and hematocrit. Transfuse as needed. Send the repeat stool for OB. Continue on PPI. In terms G-tube feeding, the patient is tolerating feeding without any residuals. We will continue. I want to thank, Dr. Guillaume Hawk, for this kind referral. Nehemiah Perez M.D. DR: Alyx JOB#: [id number] CC: Guillaume Hawk M.D.; Fax#: [phone]
--- NOTE | 2020-06-16 16:26 | NUR ---
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 99.0 HR 61 RR 26 B/P 110/61 AC 26 TV 500 FIO2 100% PEEP 12 PH 7.47 PCO2 29.3 PO2 56.8 HCO3 21.3 O2 SAT 88.6 WBC 22.0 H/H 8.6/25.4 NA 152 BUN 46 BNP 6068 IS: DOPAMINE GTT MEROPENEM IV SOLU CORTEF IV ICU STATUS
--- NOTE | 2020-06-16 17:00 | NUR ---
NURSE NOTES: Seen by Dr. Camejo and assessed patient. No new orders at this time.
[2020-06-16] MEDS ORDERED: Tubing IV Secondary IV ONE (17:43)
[2020-06-16] MEDS ORDERED: D5W 550ml IV ONE (17:43)
[2020-06-16] MEDS ORDERED: NS 500ML ONE (17:43)
[2020-06-16] MEDS ORDERED: NS 275ml ONE ×3 (17:43→17:47)
[2020-06-16] MEDS ORDERED: Tubing Blood Filter IV ONE (17:47)
[2020-06-16] MEDS ORDERED: Sterile Water Irrig 1000ml IRRIG ONE (17:47)
--- NOTE | 2020-06-16 19:09 | NUR ---
HAND-OFF: Report given to TAI Covarrubias. Endorsed plan of care.
--- NOTE | 2020-06-16 19:12 | Internal Med Progress Note ---
Subjective Date of Service: Jun 16, 2020 Physician Name Joni Copeland Attending Physician Elayne Allred MD Current Medications Medications (Trade) Dose Ordered Sig/Katy Route PRN Reason Start Time Stop Time Status Last Admin Dose Admin Acetaminophen (Tylenol) 650 mg Q4H PRN GT FEVER 06/03/20 11:45 07/03/20 11:44 06/15/20 03:17 Amikacin Protocol (Amikacin pharmacy to dose) 1 ea DAILY PRN MISC Per rx protocol 06/16/20 12:00 07/16/20 11:59 Amikacin Sulfate 1000 mg/Sodium Chloride 114 ml @ 114 mls/hr Q36H IV 06/16/20 14:00 06/23/20 13:59 06/16/20 13:56 Chlorhexidine Gluconate (Alla-Hex 2%) 1 applic DAILY@1999 TOPIC 06/08/20 20:00 09/06/20 19:59 06/15/20 19:54 Clotrimazole (Lotrimin) 1 applic Q12HR TOPIC 06/07/20 13:00 09/05/20 12:59 06/16/20 08:18 Dextrose (Dextrose 50%) 25 ml Q30M PRN IV Hypoglycemia 06/03/20 11:30 08/28/20 11:29 Dextrose (Dextrose 50%) 50 ml Q30M PRN IV Hypoglycemia 06/03/20 11:30 08/28/20 11:29 Dopamine HCl/ Dextrose 250 ml @ 0 mls/hr Q24H IV 06/12/20 11:15 09/10/20 11:14 06/14/20 19:47 Hydrocortisone (Solu-CORTEF) 100 mg EVERY 8 HOURS IV 06/07/20 14:00 09/05/20 13:59 06/16/20 13:38 Levothyroxine Sodium (Synthroid) 75 mcg DAILY GT 06/04/20 09:00 06/30/20 08:59 06/16/20 08:16 Lorazepam (Ativan 2mg/ml 1ml) 2 mg Q2H PRN IV For Anxiety 06/12/20 17:30 06/19/20 17:29 06/12/20 17:37 Meropenem 1 gm/ Sodium Chloride 55 ml @ 110 mls/hr Q8H IVPB 06/14/20 12:00 06/19/20 11:59 06/16/20 12:20 Midodrine (Pro-Amatine) 10 mg Q8HR GT 06/05/20 14:00 09/03/20 13:59 06/16/20 13:37 Norepinephrine Bitartrate 16 mg/ Dextrose 500 ml @ 0 mls/hr Q24H IV 06/08/20 07:45 07/07/20 12:59 06/12/20 08:43 Ondansetron HCl (Zofran) 4 mg Q6H PRN IVP Nausea & Vomiting 06/03/20 12:00 06/29/20 11:59 Pantoprazole (Protonix) 40 mg DAILY IV 06/04/20 09:00 06/30/20 08:59 06/16/20 08:17 Phenylephrine HCl 50 mg/Dextrose 250 ml @ 0 mls/hr Q24H PRN IV For hypotension 06/06/20 17:45 07/06/20 17:44 06/08/20 01:49 Polyethylene Glycol (Miralax) 17 gm DAILYPRN PRN GT Constipation 06/03/20 12:00 06/29/20 11:59 Valproic Acid (Depakene) 500 mg EVERY 8 HOURS GT 06/03/20 14:00 06/29/20 21:59 06/16/20 13:37 Allergies: Coded Allergies: No Known Allergies (Unverified , 10/16/18) ROS Limited/Unobtainable: Yes Subjective 59 YO F with Down's syndrome admitted with hypoxia. Now sepsis and pneumonia. Cover for Int Arturo-DR Hawk. ICU. Intubated and sedated Objective Last Vital Signs Date Time Temp Pulse Resp B/P (MAP) Pulse Ox O2 Delivery O2 Flow Rate FiO2 06/16/20 18:00 84 23 138/99 (112) 93 06/16/20 16:00 Mechanical Ventilator Mechanical Ventilator 06/16/20 16:00 100 06/16/20 16:00 99.3 Laboratory Tests Test 06/16/20 04:00 06/16/20 08:48 White Blood Count 22.0 K/UL (4.8-10.8) H Red Blood Count 2.65 M/UL (4.20-5.40) L Hemoglobin 8.6 G/DL (12.0-16.0) L Hematocrit 25.4 % (37.0-47.0) L Mean Corpuscular Volume 96 FL (80-99) Mean Corpuscular Hemoglobin 32.6 PG (27.0-31.0) H Mean Corpuscular Hemoglobin Concent 34.1 G/DL (32.0-36.0) Red Cell Distribution Width 15.5 % (11.6-14.8) H Platelet Count 100 K/UL (150-450) L Mean Platelet Volume 10.7 FL (6.5-10.1) H Neutrophils (%) (Auto) % (45.0-75.0) Lymphocytes (%) (Auto) % (20.0-45.0) Monocytes (%) (Auto) % (1.0-10.0) Eosinophils (%) (Auto) % (0.0-3.0) Basophils (%) (Auto) % (0.0-2.0) Differential Total Cells Counted 100 Neutrophils % (Manual) 89 % (45-75) H Lymphocytes % (Manual) 5 % (20-45) L Monocytes % (Manual) 6 % (1-10) Eosinophils % (Manual) 0 % (0-3) Basophils % (Manual) 0 % (0-2) Band Neutrophils 0 % (0-8) Platelet Estimate Decreased L Platelet Morphology Giant Platelets Rare Polychromasia 1+ Hypochromasia 1+ Anisocytosis 1+ Sodium Level 152 MMOL/L (136-145) H Potassium Level 3.5 MMOL/L (3.5-5.1) Chloride Level 120 MMOL/L (98-107) H Carbon Dioxide Level 25 MMOL/L (21-32) Anion Gap 7 mmol/L (5-15) Blood Urea Nitrogen 46 mg/dL (7-18) H Creatinine 1.2 MG/DL (0.55-1.30) Estimat Glomerular Filtration Rate 46.2 mL/min (>60) Glucose Level 134 MG/DL (74-106) H Calcium Level 7.9 MG/DL (8.5-10.1) L Phosphorus Level 2.8 MG/DL (2.5-4.9) Magnesium Level 2.1 MG/DL (1.8-2.4) Total Bilirubin 0.4 MG/DL (0.2-1.0) Gamma Glutamyl Transpeptidase 45 U/L (5-85) Aspartate Amino Transf (AST/SGOT) 81 U/L (15-37) H Alanine Aminotransferase (ALT/SGPT) 221 U/L (12-78) H Alkaline Phosphatase 60 U/L (46-116) C-Reactive Protein, Quantitative 0.6 mg/dL (0.00-0.90) Pro-B-Type Natriuretic Peptide 6066 pg/mL (0-125) H Total Protein 4.4 G/DL (6.4-8.2) L Albumin 1.2 G/DL (3.4-5.0) L Globulin 3.2 g/dL Albumin/Globulin Ratio 0.4 (1.0-2.7) L Thyroid Stimulating Hormone (TSH) 0.894 uiU/mL (0.358-3.740) Arterial Blood pH 7.479 (7.350-7.450) Arterial Blood Partial Pressure CO2 29.3 mmHg (35.0-45.0) L Arterial Blood Partial Pressure O2 56.8 mmHg (75.0-100.0) L Arterial Blood HCO3 21.3 mmol/L (22.0-26.0) L Arterial Blood Oxygen Saturation 88.6 % (95-100) *L Arterial Blood Base Excess -1.7 (-2-2) Jonathan Test Positive Microbiology Date/Time Source Procedure Growth Status 06/14/20 13:35 Blood Blood Culture - Preliminary NO GROWTH AFTER 24 HOURS Resulted 06/14/20 13:35 Blood Blood Culture - Preliminary NO GROWTH AFTER 24 HOURS Resulted 06/15/20 14:00 Indwelling Cath Urine Culture - Preliminary NO GROWTH Resulted Intake and Output 06/15/20 06/16/20 19:00 07:00 Intake Total 668.156 ml 1144.068 ml Output Total 1355 ml 870 ml Balance -686.844 ml 274.068 ml Free Water 10 ml 110 ml IV Total 158.156 ml 134.068 ml Tube Feeding 500 ml 600 ml Blood Product 300 ml Output Urine Total 1355 ml 870 ml # Bowel Movements 1 3 Objective General Appearance: WD/WN, no apparent distress, alert EENT: PERRL/EOMI, normal ENT inspection Neck: non-tender, normal alignment, supple, normal inspection Cardiovascular: normal peripheral pulses, normal rate, regular rhythm, no gallop/murmur, no JVD Respiratory/Chest: Mech vent; decreased breath sounds, crackles/rales, rhonchi - bilaterally, expiratory wheezing Abdomen: normal bowel sounds, non tender, soft, no organomegaly, no mass Extremities: normal range of motion Neurologic: mainspring torque tester II-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 Continue daptomycin per ID=Dr Camejo. Pulmonary/Critical care=DR Allred. COVID NEG (2) Sepsis Assessment & Plan: Staph haemolyticus. Continue daptomycin and ceftriaxone per ID=Dr Camejo (3) Down's syndrome (4) Dysphagia Assessment & Plan: S/P PEG (5) Seizure disorder Assessment & Plan: Continue keppra and depakote (6) Hypothyroidism Assessment & Plan: Continue synthroid (7) Acute respiratory failure Assessment & Plan: Pulmonary = Dr Allred; [facility] vent Joni Copeland MD Jun 16, 2020 19:12
--- NOTE | 2020-06-16 19:30 | NUR ---
NURSE NOTES: received pt awake, respond to pain stimuli only with good eye contact. Orally intubated on ac mode, SR on the monitor, Bp stable. afebrile. pt been off dopamine drip. Ns at tko rate been infusing to JODY PICC line, Site with drsg dry and intact. pt has 2-3+ edema to all extremities. pt has redness on the buttocks area covered with optifoam as well as fungal infection, lower abdomen and underbreast, as well as bilateral toes treated with lotrimen cream.Tolerated GT fdg. HOB kept elevated. on aspiration precaution. will continue to monitor.
[2020-06-16] MEDS: Dyna-Hex 2% Top Sol 2oz TOPIC SCH (20:03)
--- NOTE | 2020-06-16 21:00 | NUR ---
NURSE NOTES: Suctioned tn whitish secretions from ETT and mouth. Turned q 2hrs prn with good skin care done.
--- NOTE | 2020-06-16 23:00 | NUR ---
NURSE NOTES: Bp remained stable, afebrile.
[2020-06-17] VITALS (26 sets, daily range): BP systolic 93–136; BP diastolic 47–69
--- NOTE | 2020-06-17 | NUR ---
NURSE NOTES: turned q 2hrs prn with good skin care done.
--- NOTE | 2020-06-17 01:48 | Cardiology Report ---
APPROVED REPORT EXAM: Two-dimensional and M-mode echocardiogram with Doppler and color Doppler. INDICATION Veg[employer] M-Mode DIMENSIONS IVSd0.9 (0.7-1.1cm)Left Atrium (MM)3.4 (1.6-4.0cm) LVDd5.4 (3.5-5.6cm)Aortic Root3.5 (2.0-3.7cm) PWd0.7 (0.7-1.1cm)Aortic Cusp Exc.1.8 (1.5-2.0cm) IVSs1.8 cmEPSS0.7 (>1.0cm) LVDs2.9 (2.5-4.0cm) PWs1.5 cm <Conclusion> Technically difficult study due to poor acoustic windows. Normal left ventricular chamber size, systolic function and wall motion to extent visualized. Left ventricular ejection fraction grossly estimated to be 65 %. Mild left ventricular hypertrophy. Anterior Echo-free space, may be due to pericardial fat or effusion. All other cardiac chamber sizes are within normal limits. Focal aortic valve sclerosis with adequate cusp excursion. Thickened mitral valve leaflets with normal excursion. Mitral annulus and aortic root calcification. Pulmonic valve not well visualized. Normal tricuspid valve structure. IVC view is not obtainable due to GI-tube. No discrete vegetations seen, however SBE may not be excluded by transthoracic 2-D echo. A color flow and spectral Doppler study was performed and revealed: No aortic regurgitation. Trace mitral regurgitation. Mitral diastolic velocities suggest mild left ventricular diastolic dysfunction (Grade I). Trace tricuspid regurgitation. Tricuspid systolic velocities suggests peak right ventricular systolic pressure of 12 mmHg.
--- NOTE | 2020-06-17 01:48 | Cardiology Report ---
APPROVED REPORT EKG Measurement Heart [id number] MD [id number] <Conclusion> Normal sinus rhythm Left axis deviation Right bundle branch block Abnormal ECG
--- NOTE | 2020-06-17 02:15 | NUR ---
NURSE NOTES: Amikacin random was drawn via PICC line.
[2020-06-17] MEDS: Meropenem 1 GM in NS 55 ML IVPB SCH ×3 (03:32→20:47)
--- NOTE | 2020-06-17 04:00 | NUR ---
NURSE NOTES: Sent stool specimen for occult blood.
[2020-06-17 05:13] LABS: HEMATOCRIT 26.2 % (37.0-47.0); MEAN CORPUSCULAR VOLUME 97 FL (80-99); PLATELET COUNT 127 K/UL (150-450); RED BLOOD COUNT 2.71 M/UL (4.20-5.40); RED CELL DISTRIBUTION WIDTH 15.1 % (11.6-14.8)
--- NOTE | 2020-06-17 05:30 | NUR ---
NURSE NOTES: complete bed bath with bed changed was done.
[2020-06-17] MEDS: Midodrine 10mg tab GT SCH ×3 (05:32→21:28)
[2020-06-17] MEDS: Hydrocortisone 100mg Inj IV SCH ×3 (05:32→21:28)
[2020-06-17] MEDS: Valproic Acid 250mg/5ml Liquid GT SCH ×3 (05:33→21:27)
[2020-06-17 05:35] LABS: WHITE BLOOD COUNT 22.8 K/UL (4.8-10.8)
[2020-06-17 05:43] LABS: ALANINE AMINOTRANSFERASE 169 U/L (12-78); ALBUMIN 1.2 G/DL (3.4-5.0); ALBUMIN/GLOBULIN RATIO 0.4 (1.0-2.7); ALKALINE PHOSPHATASE 60 U/L (46-116); ANION GAP 6 mmol/L (5-15); ASPARTATE AMINO TRANSFERASE 54 U/L (15-37); BILIRUBIN,TOTAL 0.4 MG/DL (0.2-1.0); BLOOD UREA NITROGEN 44 mg/dL (7-18); CALCIUM 7.5 MG/DL (8.5-10.1); CARBON DIOXIDE 26 MMOL/L (21-32); CHLORIDE 119 MMOL/L (98-107); CREATININE 1.1 MG/DL (0.55-1.30); POTASSIUM 3.8 MMOL/L (3.5-5.1); SODIUM 151 MMOL/L (136-145)
--- NOTE | 2020-06-17 07:15 | NUR ---
NURSE HAND-OFF REPORT: Latest Vital Signs: Temperature 98.8 , Pulse 58 , B/P 136 /67 , Respiratory Rate 24 , O2 SAT 98 , Mechanical Ventilator, O2 Flow Rate 15.0 . Vital Sign Comment: EKG Rhythm: Sinus Bradycardia Rhythm change?: N MD Notified?: - MD Response: Latest Osorio Fall Score: 50 Fall Risk: High Risk Safety Measures: Call light Within Reach, Bed Alarm Zone 2, Side Rails Side Rails x3, Bed position Low and Locked. Fall Precautions: Yellow Socks Yellow Gown Door Sign Patient Fall Education Report given to Delmar LUJAN
--- NOTE | 2020-06-17 07:29 | NUR ---
NURSE NOTES: Received report from TAI Covarrubias. Patient asleep and responsive when shaking. ETT 7.5/22cm at lip line with vent setting AC 26, VT 500, Peep 12 and FiO2 90%. O2 Sat 98% on the monitor. Gtube intact, clean and running Jevity 1.2 @50ml/hr. Gregorio intact and draining with yellow color urine. Left upper arm PICC intact, clean and running TKO. Kept dry, clean, comfortable and HOB>30. Call light placed in easy reach. Bed in lowest position and locked. Will continue plan of care.
[2020-06-17] MEDS: Norepinephrine Bitartrate 16 MG in D5W 500ml 484 ML IV SCH (07:45)
[2020-06-17] MEDS: Pantoprazole Inj IV SCH (08:57)
--- NOTE | 2020-06-17 09:14 | NUR ---
NURSE NOTES: Seen by Dr. Allred and assessed patient. Ordered new vent setting. Will follow up with RT.
--- NOTE | 2020-06-17 09:43 | NUR ---
RD ASSESSMENT & RECOMMENDATIONS SEE CARE ACTIVITY FOR COMPLETE ASSESSMENT DAILY ESTIMATED NEEDS: Needs based on CRITICAL CARE, 50kg 22-27 kcals/kg 4424-9583 total kcals 1.25-2 g protein/kg 63-100 g total protein 25-30 mL/kg 6540-3416 total fluid mLs NUTRITION DIAGNOSIS: Swallowing difficulty r/t dysphagia as evidenced by pt w/ Downs Syndrome, PEG dep for all nutritional needs, now intubated, pressor support, ICU status. CURRENT TF: Jevity 1.2 @50ml/hr x 22 hrs ENTERAL NUTRITION RECOMMENDATIONS: VITAL AF 1.2 @ 50ml/hr x22 hrs to provide 1100ml, 1320 kcal, 83g pro, 892ml free H2O - Rec VITAL AF 1.2 for critical care, high pro needs, possible improved tolerance. - Initiate @ 20ml/hr x 6hrs, advance as tolerated to goal w/ hemodynamic stability. - Hold TF 1 hr before and after synthroid meds. - Flush per MD HOB over 30 degrees. WITHOUT HEMODYNAMIC STABILITY, rec trophic feeds of Vital AF 1.2 @ 10ml/hr ADDITIONAL RECOMMENDATIONS: 1) Ht of 61 inches per SNF; recalibrate bed scale for accurate CBW 2) Monitor BG closely w/ Solucortef-> rec lawanda for BG control 3) Monitor hemodynamic stability: on pressors x 2, titrating down -> rec trophic feeds while not hemodynamically stable 4) Wound healing: Continue Vit C 250mg QD + [place] BID 5) Monitor lytes, replete as needed 6) Rec prokinetics w/ continued residuals-> minimal now, 6ml, 8ml.
--- NOTE | 2020-06-17 11:02 | NUR ---
NURSE NOTES: Seen by Dr. Pitt and assessed patient.
--- NOTE | 2020-06-17 11:08 | General Progress Note ---
Assessment/Plan Assessment/Plan: 1. History of Down syndrome. 2. Dysphagia with G-tube. 3. Seizure disorder. 4. Hypothyroidism. 5. LEANN. 6. Pneumonia. 7. Sepsis. fu H&H ppi GTF hold GI procedures for now Subjective ROS Limited/Unobtainable: No Allergies: Coded Allergies: No Known Allergies (Unverified , 10/16/18) Objective Last 24 Hour Vital Signs Date Time Temp Pulse Resp B/P (MAP) Pulse Ox O2 Delivery O2 Flow Rate FiO2 06/17/20 10:00 51 26 130/63 (85) 90 06/17/20 09:00 100 06/17/20 09:00 56 24 120/63 (82) 98 06/17/20 08:00 97.8 60 24 120/63 (82) 94 06/17/20 08:00 100 06/17/20 08:00 Mechanical Ventilator Mechanical Ventilator 06/17/20 08:00 51 06/17/20 07:45 136/67 06/17/20 07:15 59 26 90 06/17/20 07:00 58 24 136/67 (90) 98 06/17/20 06:00 55 26 110/56 (74) 98 06/17/20 05:00 59 27 109/50 (69) 97 06/17/20 04:00 100 06/17/20 04:00 Mechanical Ventilator Mechanical Ventilator 06/17/20 04:00 98.8 66 26 95/57 (70) 98 06/17/20 04:00 61 06/17/20 03:00 67 27 107/63 (78) 97 06/17/20 02:41 65 30 100 06/17/20 02:00 56 26 113/65 (81) 98 06/17/20 01:30 59 26 120/69 (86) 96 06/17/20 01:00 61 25 104/53 (70) 96 06/17/20 00:30 58 26 117/54 (75) 94 06/17/20 00:00 Mechanical Ventilator Mechanical Ventilator 06/17/20 00:00 98.8 62 26 119/62 (81) 96 06/16/20 23:00 57 26 106/76 (86) 97 06/16/20 22:39 58 26 100 06/16/20 22:00 62 25 92/65 (74) 91 06/16/20 21:00 61 26 96/49 (65) 94 06/16/20 20:00 Mechanical Ventilator Mechanical Ventilator 06/16/20 20:00 100 06/16/20 20:00 60 06/16/20 20:00 99.0 54 26 109/52 (71) 93 06/16/20 19:06 58 26 100 06/16/20 19:00 62 26 104/52 (69) 94 06/16/20 18:00 84 23 138/99 (112) 93 06/16/20 17:03 69 26 108/52 (70) 93 06/16/20 16:00 Mechanical Ventilator Mechanical Ventilator 06/16/20 16:00 63 06/16/20 16:00 100 06/16/20 16:00 99.3 70 28 109/52 (71) 93 06/16/20 16:00 70 28 109/52 (71) 93 06/16/20 16:00 62 06/16/20 15:28 62 26 100 06/16/20 15:00 69 26 105/57 (73) 91 06/16/20 14:00 67 26 106/50 (68) 91 06/16/20 13:00 57 26 110/61 (77) 91 06/16/20 12:00 109 06/16/20 12:00 Mechanical Ventilator Mechanical Ventilator 06/16/20 12:00 99.0 61 25 119/61 (80) 92 06/16/20 11:26 100 06/16/20 11:24 58 26 100 06/16/20 11:15 113/56 Intake and Output 06/16/20 06/17/20 19:00 07:00 Intake Total 1189 ml 680 ml Output Total 550 ml 610 ml Balance 639 ml 70 ml Free Water 120 ml 80 ml IV Total 669 ml Tube Feeding 400 ml 600 ml Output Urine Total 550 ml 610 ml # Bowel Movements 2 Laboratory Tests 06/17/20 02:00: Random Amikacin Level [Pending] 06/17/20 04:00: Stool Occult Blood [Pending] 06/17/20 04:30: White Blood Count 22.8*H, Red Blood Count 2.71L, Hemoglobin 9.0L, Hematocrit 26.2L, Mean Corpuscular Volume 97, Mean Corpuscular Hemoglobin 33.0H, Mean Corpuscular Hemoglobin Concent 34.2, Red Cell Distribution Width 15.1H, Platelet Count 127L, Mean Platelet Volume 9.0, Neutrophils (%) (Auto) , Lymphocytes (%) (Auto) , Monocytes (%) (Auto) , Eosinophils (%) (Auto) , Basophils (%) (Auto) , Differential Total Cells Counted 100, Neutrophils % ( Manual) 89H, Lymphocytes % (Manual) 7L, Monocytes % (Manual) 4, Eosinophils % ( Manual) 0, Basophils % (Manual) 0, Band Neutrophils 0, Platelet Estimate DecreasedL, Platelet Morphology Normal, Anisocytosis 1+, Sodium Level 151H, Potassium Level 3.8, Chloride Level 119H, Carbon Dioxide Level 26, Anion Gap 6, Blood Urea Nitrogen 44H, Creatinine 1.1, Estimat Glomerular Filtration Rate 51.0 , Glucose Level 177H, Calcium Level 7.5L, Phosphorus Level 3.0, Magnesium Level 2.1, Total Bilirubin 0.4, Aspartate Amino Transf (AST/SGOT) 54H, Alanine Aminotransferase (ALT/SGPT) 169H, Alkaline Phosphatase 60, Total Protein 4.6L, Albumin 1.2L, Globulin 3.4, Albumin/Globulin Ratio 0.4L 06/17/20 07:29: Arterial Blood pH 7.479H, Arterial Blood Partial Pressure CO2 30.4L, Arterial Blood Partial Pressure O2 80.1, Arterial Blood HCO3 22.1, Arterial Blood Oxygen Saturation 94.8L, Arterial Blood Base Excess -0.9, Jonathan Test Positive Height (Feet): 5 Height (Inches): 3.00 Weight (Pounds): 172 General Appearance: no apparent distress EENT: normal ENT inspection Neck: supple Cardiovascular: normal rate Respiratory/Chest: decreased breath sounds Abdomen: normal bowel sounds, non tender, soft Extremities: non-tender Nehemiah Perez MD Jun 17, 2020 11:08
[2020-06-17] MEDS: DOPamine 400mg/250ml 250 ML IV SCH (11:15)
--- NOTE | 2020-06-17 11:43 | Internal Med Progress Note ---
Subjective Date of Service: Jun 17, 2020 Physician Name Joni Copeland Attending Physician Elayne Allred MD Current Medications Medications (Trade) Dose Ordered Sig/Katy Route PRN Reason Start Time Stop Time Status Last Admin Dose Admin Acetaminophen (Tylenol) 650 mg Q4H PRN GT FEVER 06/03/20 11:45 07/03/20 11:44 06/15/20 03:17 Amikacin Protocol (Amikacin pharmacy to dose) 1 ea DAILY PRN MISC Per rx protocol 06/16/20 12:00 07/16/20 11:59 Amikacin Sulfate 1000 mg/Sodium Chloride 114 ml @ 114 mls/hr Q36H IV 06/16/20 14:00 06/23/20 13:59 06/16/20 13:56 Chlorhexidine Gluconate (Alla-Hex 2%) 1 applic DAILY@1999 TOPIC 06/08/20 20:00 09/06/20 19:59 06/16/20 20:03 Clotrimazole (Lotrimin) 1 applic Q12HR TOPIC 06/07/20 13:00 09/05/20 12:59 06/17/20 08:57 Dextrose (Dextrose 50%) 25 ml Q30M PRN IV Hypoglycemia 06/03/20 11:30 08/28/20 11:29 Dextrose (Dextrose 50%) 50 ml Q30M PRN IV Hypoglycemia 06/03/20 11:30 08/28/20 11:29 Dopamine HCl/ Dextrose 250 ml @ 0 mls/hr Q24H IV 06/12/20 11:15 09/10/20 11:14 06/14/20 19:47 Hydrocortisone (Solu-CORTEF) 100 mg EVERY 8 HOURS IV 06/07/20 14:00 09/05/20 13:59 06/17/20 05:32 Levothyroxine Sodium (Synthroid) 75 mcg DAILY GT 06/04/20 09:00 06/30/20 08:59 06/17/20 08:57 Lorazepam (Ativan 2mg/ml 1ml) 2 mg Q2H PRN IV For Anxiety 06/12/20 17:30 06/19/20 17:29 06/12/20 17:37 Meropenem 1 gm/ Sodium Chloride 55 ml @ 110 mls/hr Q8H IVPB 06/14/20 12:00 06/19/20 11:59 06/17/20 11:13 Midodrine (Pro-Amatine) 10 mg Q8HR GT 06/05/20 14:00 09/03/20 13:59 06/17/20 05:32 Norepinephrine Bitartrate 16 mg/ Dextrose 500 ml @ 0 mls/hr Q24H IV 06/08/20 07:45 07/07/20 12:59 06/12/20 08:43 Ondansetron HCl (Zofran) 4 mg Q6H PRN IVP Nausea & Vomiting 06/03/20 12:00 06/29/20 11:59 Pantoprazole (Protonix) 40 mg DAILY IV 06/04/20 09:00 06/30/20 08:59 06/17/20 08:57 Phenylephrine HCl 50 mg/Dextrose 250 ml @ 0 mls/hr Q24H PRN IV For hypotension 06/06/20 17:45 07/06/20 17:44 06/08/20 01:49 Polyethylene Glycol (Miralax) 17 gm DAILYPRN PRN GT Constipation 06/03/20 12:00 06/29/20 11:59 Valproic Acid (Depakene) 500 mg EVERY 8 HOURS GT 06/03/20 14:00 06/29/20 21:59 06/17/20 05:33 Allergies: Coded Allergies: No Known Allergies (Unverified , 10/16/18) ROS Limited/Unobtainable: Yes Subjective 59 YO F with Down's syndrome admitted with hypoxia. Now sepsis and pneumonia. Cover for Int Med-[facility]. ICU. Intubated and sedated Objective Last Vital Signs Date Time Temp Pulse Resp B/P (MAP) Pulse Ox O2 Delivery O2 Flow Rate FiO2 06/17/20 11:30 55 26 90 06/17/20 11:15 130/63 06/17/20 11:00 90 06/17/20 08:00 97.8 06/17/20 08:00 Mechanical Ventilator Mechanical Ventilator Laboratory Tests Test 06/17/20 02:00 06/17/20 04:00 06/17/20 04:30 06/17/20 07:29 Random Amikacin Level 15.8 MG/L Stool Occult Blood Pending White Blood Count 22.8 K/UL (4.8-10.8) *H Red Blood Count 2.71 M/UL (4.20-5.40) L Hemoglobin 9.0 G/DL (12.0-16.0) L Hematocrit 26.2 % (37.0-47.0) L Mean Corpuscular Volume 97 FL (80-99) Mean Corpuscular Hemoglobin 33.0 PG (27.0-31.0) H Mean Corpuscular Hemoglobin Concent 34.2 G/DL (32.0-36.0) Red Cell Distribution Width 15.1 % (11.6-14.8) H Platelet Count 127 K/UL (150-450) L Mean Platelet Volume 9.0 FL (6.5-10.1) Neutrophils (%) (Auto) % (45.0-75.0) Lymphocytes (%) (Auto) % (20.0-45.0) Monocytes (%) (Auto) % (1.0-10.0) Eosinophils (%) (Auto) % (0.0-3.0) Basophils (%) (Auto) % (0.0-2.0) Differential Total Cells Counted 100 Neutrophils % (Manual) 89 % (45-75) H Lymphocytes % (Manual) 7 % (20-45) L Monocytes % (Manual) 4 % (1-10) Eosinophils % (Manual) 0 % (0-3) Basophils % (Manual) 0 % (0-2) Band Neutrophils 0 % (0-8) Platelet Estimate Decreased L Platelet Morphology Normal Anisocytosis 1+ Sodium Level 151 MMOL/L (136-145) H Potassium Level 3.8 MMOL/L (3.5-5.1) Chloride Level 119 MMOL/L (98-107) H Carbon Dioxide Level 26 MMOL/L (21-32) Anion Gap 6 mmol/L (5-15) Blood Urea Nitrogen 44 mg/dL (7-18) H Creatinine 1.1 MG/DL (0.55-1.30) Estimat Glomerular Filtration Rate 51.0 mL/min (>60) Glucose Level 177 MG/DL (74-106) H Calcium Level 7.5 MG/DL (8.5-10.1) L Phosphorus Level 3.0 MG/DL (2.5-4.9) Magnesium Level 2.1 MG/DL (1.8-2.4) Total Bilirubin 0.4 MG/DL (0.2-1.0) Aspartate Amino Transf (AST/SGOT) 54 U/L (15-37) H Alanine Aminotransferase (ALT/SGPT) 169 U/L (12-78) H Alkaline Phosphatase 60 U/L (46-116) Total Protein 4.6 G/DL (6.4-8.2) L Albumin 1.2 G/DL (3.4-5.0) L Globulin 3.4 g/dL Albumin/Globulin Ratio 0.4 (1.0-2.7) L Arterial Blood pH 7.479 (7.350-7.450) Arterial Blood Partial Pressure CO2 30.4 mmHg (35.0-45.0) L Arterial Blood Partial Pressure O2 80.1 mmHg (75.0-100.0) Arterial Blood HCO3 22.1 mmol/L (22.0-26.0) Arterial Blood Oxygen Saturation 94.8 % (95-100) L Arterial Blood Base Excess -0.9 (-2-2) Jonathan Test Positive Microbiology Date/Time Source Procedure Growth Status 06/14/20 13:35 Blood Blood Culture - Preliminary NO GROWTH AFTER 48 HOURS Resulted 06/14/20 13:35 Blood Blood Culture - Preliminary NO GROWTH AFTER 48 HOURS Resulted 06/15/20 14:00 Sputum Gram Stain Pending Resulted 06/15/20 14:00 Sputum Sputum Culture - Preliminary NO GROWTH AFTER 24 HOURS Resulted 06/15/20 14:00 Indwelling Cath Urine Culture - Preliminary NO GROWTH AFTER 24 HOURS Resulted Intake and Output 06/16/20 06/17/20 19:00 07:00 Intake Total 1189 ml 735 ml Output Total 550 ml 610 ml Balance 639 ml 125 ml Free Water 120 ml 80 ml IV Total 669 ml 55 ml Tube Feeding 400 ml 600 ml Output Urine Total 550 ml 610 ml # Bowel Movements 2 Objective General Appearance: WD/WN, no apparent distress, alert EENT: PERRL/EOMI, normal ENT inspection Neck: non-tender, normal alignment, supple, normal inspection Cardiovascular: normal peripheral pulses, normal rate, regular rhythm, no gallop/murmur, no JVD Respiratory/Chest: Mech vent; decreased breath sounds, crackles/rales, rhonchi - bilaterally, expiratory wheezing Abdomen: normal bowel sounds, non tender, soft, no organomegaly, no mass Extremities: normal range of motion 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 Continue daptomycin per ID=Dr Camejo. Pulmonary/Critical care=DR Allred. COVID NEG (2) Sepsis Assessment & Plan: Staph haemolyticus. Continue amikacin and meropenem per ID= Dr Camejo (3) Down's syndrome (4) Dysphagia Assessment & Plan: S/P PEG (5) Seizure disorder Assessment & Plan: Continue keppra and depakote (6) Hypothyroidism Assessment & Plan: Continue synthroid (7) Acute respiratory failure Assessment & Plan: Pulmonary = Dr Allred; [facility] Joni Copeland MD Jun 17, 2020 11:43
--- NOTE | 2020-06-17 12:08 | Diagnostic Imaging Report ---
Indication: Dyspnea Technique: One view of the chest Comparison: 06/16/2020 Findings: Stable satisfactory position of endotracheal tube. Bilateral interstitial and airspace infiltrates versus edema are unchanged. Left sided PICC remains. Impression: Unchanged, over one day, findings as above.
--- NOTE | 2020-06-17 12:20 | NUR ---
NURSE NOTES: Repositioned patient. Started tube feeding vital af 1.2 @ 50ml/hr.
--- NOTE | 2020-06-17 12:46 | Infectious Diseases Prog Note ---
Assessment/Plan ASSESSMENT: sp code blue 06/03 Septic Shock; SP Fever, recurrent Leukocytosis; recurrent; worsening -06/14 Bcx NTD ucx NTD sp cx NTD -06/03 u/a no pyuria Pneumonia.- COVID 19 neg x3 Acute hypoxic resp failure on VM> NRB 15l 100%; hypoxic on ABG> now VDRF 06/03 - Fio2 80% >100% 06/05> 60% 06/09 >80% 06/10 -06/13 CXR:Small bilateral pleural effusions with minor edema. Stable edema with mild worsening in the degree of pleural effusion on the right. -06/09 sp cx Neg 06/08 CXR: Extensive bilateral interstitial and airspace disease appears similar to the prior exam. Moderate to large bilateral pleural effusions appear unchanged. 06/05 CXR: Increasing left upper lobe dense consolidation and likely increasing bilateral pleural fluid. Persistent diffuse dense consolidation elsewhere -06/03 sp cx normal resp marie -06/02 CXR: Increased atelectasis of the right lung, since prior exam of 3 days earlier. New or increased right pleural effusion. Increased left basilar consolidation and/or pleural fluid -COVID Rapid PCR neg 05/31, 05/31, 06/03 -05/30 spc x Group G strep -05/30 CXR: Reduced lung volumes. Patchy bilateral predominantly interstitial pulmonary opacities. Could be from edema and/or pneumonia. There is a broader differential. -legionella ag urine, blasto ab, Histo ab, HIV ab screen, FRANCIS, ANCA neg Persistent, high grade bacteremia- -05/30 Bcx 4/4 sets S. haemolyticus; 05/31 Bcx 3/4 S/ epi; 06/04 Bcx 1.4 S. warnerri; 06/06 Bcx Neg -2d echo: no vegetaions seen ua/ wbc 10-15, nit neg, leuk +1; ucx Neg LEANN; -supratherapeutic vanco levels -Seizure disorder. - Hypothyroidism. - Down syndrome. History of PEG tube placement. ID resident PLAN: -f/u repeat blood Cx sputum and Urine Cx Cont Meropenem#14/14 (abx d #18) given resp decompensation Empiric Amikacin #2 pending repeat cultures 06/12/20 SP Daptomycin #11 06/10 SP MIcafungin #7, Linezolid #5 06/05 SP Azithromycin #7/7 06/03 SP Ceftriaxone #2 06/02 SP IV Vancomycin #4, Zosyn #4 05/30 SP Cefepime x1, Flagyl x1 - Monitor CBC, BMP. -f/u Cocci ab, CrAg .f/u Repeat cx - COVID neg x3 - Monitor chest x-ray. - Monitor the patient's clinical course and labs. Based on those, we will do further recommendation. -f/u Bcx from picc line, cdiff if diarrhea Thank you, Dr. Allred, for allowing me to participate in the care of this patient. I will follow the patient with you at this hospitalization. Discussed with RN Subjective Allergies: Coded Allergies: No Known Allergies (Unverified , 10/16/18) afebrile >24hrs off pressors Fio2 90% Objective Last 24 Hour Vital Signs Date Time Temp Pulse Resp B/P (MAP) Pulse Ox O2 Delivery O2 Flow Rate FiO2 06/17/20 12:00 98.0 55 26 105/56 (72) 94 06/17/20 12:00 Mechanical Ventilator Mechanical Ventilator 06/17/20 12:00 55 06/17/20 12:00 90 06/17/20 11:30 55 26 90 06/17/20 11:15 130/63 06/17/20 11:00 55 25 114/57 (76) 90 06/17/20 10:00 51 26 130/63 (85) 90 06/17/20 09:16 56 26 90 06/17/20 09:00 90 06/17/20 09:00 56 24 120/63 (82) 98 06/17/20 08:00 97.8 60 24 120/63 (82) 94 06/17/20 08:00 90 06/17/20 08:00 Mechanical Ventilator Mechanical Ventilator 06/17/20 08:00 51 06/17/20 07:45 136/67 06/17/20 07:15 59 26 90 06/17/20 07:00 58 24 136/67 (90) 98 06/17/20 06:00 55 26 110/56 (74) 98 06/17/20 05:00 59 27 109/50 (69) 97 06/17/20 04:00 100 06/17/20 04:00 Mechanical Ventilator Mechanical Ventilator 06/17/20 04:00 98.8 66 26 95/57 (70) 98 06/17/20 04:00 61 06/17/20 03:00 67 27 107/63 (78) 97 06/17/20 02:41 65 30 100 06/17/20 02:00 56 26 113/65 (81) 98 06/17/20 01:30 59 26 120/69 (86) 96 06/17/20 01:00 61 25 104/53 (70) 96 06/17/20 00:30 58 26 117/54 (75) 94 06/17/20 00:00 Mechanical Ventilator Mechanical Ventilator 06/17/20 00:00 98.8 62 26 119/62 (81) 96 06/16/20 23:00 57 26 106/76 (86) 97 06/16/20 22:39 58 26 100 06/16/20 22:00 62 25 92/65 (74) 91 06/16/20 21:00 61 26 96/49 (65) 94 06/16/20 20:00 Mechanical Ventilator Mechanical Ventilator 06/16/20 20:00 100 06/16/20 20:00 60 06/16/20 20:00 99.0 54 26 109/52 (71) 93 06/16/20 19:06 58 26 100 06/16/20 19:00 62 26 104/52 (69) 94 06/16/20 18:00 84 23 138/99 (112) 93 06/16/20 17:03 69 26 108/52 (70) 93 06/16/20 16:00 Mechanical Ventilator Mechanical Ventilator 06/16/20 16:00 63 06/16/20 16:00 100 06/16/20 16:00 99.3 70 28 109/52 (71) 93 06/16/20 16:00 70 28 109/52 (71) 93 06/16/20 16:00 62 06/16/20 15:28 62 26 100 06/16/20 15:00 69 26 105/57 (73) 91 06/16/20 14:00 67 26 106/50 (68) 91 06/16/20 13:00 57 26 110/61 (77) 91 Height (Feet): 5 Height (Inches): 3.00 Weight (Pounds): 172 HEENT: No pale conjunctivae. No icterus. ETT in place NECK: No lymphadenopathy. CHEST: Coarse breathing sounds. HEART: S1 and S2. ABDOMEN: Soft. PEG tube in place. EXTREMITIES: No cyanosis at this time . SKIN: no rash Microbiology Date/Time Source Procedure Growth Status 06/14/20 13:35 Blood Blood Culture - Preliminary NO GROWTH AFTER 48 HOURS Resulted 06/14/20 13:35 Blood Blood Culture - Preliminary NO GROWTH AFTER 48 HOURS Resulted 06/15/20 14:00 Sputum Gram Stain Pending Resulted 06/15/20 14:00 Sputum Sputum Culture - Preliminary NO GROWTH AFTER 24 HOURS Resulted 06/15/20 14:00 Indwelling Cath Urine Culture - Preliminary NO GROWTH AFTER 24 HOURS Resulted Laboratory Tests Test 06/17/20 02:00 06/17/20 04:00 06/17/20 04:30 06/17/20 07:29 Random Amikacin Level 15.8 MG/L Stool Occult Blood Negative (NEGATIVE) White Blood Count 22.8 K/UL (4.8-10.8) *H Red Blood Count 2.71 M/UL (4.20-5.40) L Hemoglobin 9.0 G/DL (12.0-16.0) L Hematocrit 26.2 % (37.0-47.0) L Mean Corpuscular Volume 97 FL (80-99) Mean Corpuscular Hemoglobin 33.0 PG (27.0-31.0) H Mean Corpuscular Hemoglobin Concent 34.2 G/DL (32.0-36.0) Red Cell Distribution Width 15.1 % (11.6-14.8) H Platelet Count 127 K/UL (150-450) L Mean Platelet Volume 9.0 FL (6.5-10.1) Neutrophils (%) (Auto) % (45.0-75.0) Lymphocytes (%) (Auto) % (20.0-45.0) Monocytes (%) (Auto) % (1.0-10.0) Eosinophils (%) (Auto) % (0.0-3.0) Basophils (%) (Auto) % (0.0-2.0) Differential Total Cells Counted 100 Neutrophils % (Manual) 89 % (45-75) H Lymphocytes % (Manual) 7 % (20-45) L Monocytes % (Manual) 4 % (1-10) Eosinophils % (Manual) 0 % (0-3) Basophils % (Manual) 0 % (0-2) Band Neutrophils 0 % (0-8) Platelet Estimate Decreased L Platelet Morphology Normal Anisocytosis 1+ Sodium Level 151 MMOL/L (136-145) H Potassium Level 3.8 MMOL/L (3.5-5.1) Chloride Level 119 MMOL/L (98-107) H Carbon Dioxide Level 26 MMOL/L (21-32) Anion Gap 6 mmol/L (5-15) Blood Urea Nitrogen 44 mg/dL (7-18) H Creatinine 1.1 MG/DL (0.55-1.30) Estimat Glomerular Filtration Rate 51.0 mL/min (>60) Glucose Level 177 MG/DL (74-106) H Calcium Level 7.5 MG/DL (8.5-10.1) L Phosphorus Level 3.0 MG/DL (2.5-4.9) Magnesium Level 2.1 MG/DL (1.8-2.4) Total Bilirubin 0.4 MG/DL (0.2-1.0) Aspartate Amino Transf (AST/SGOT) 54 U/L (15-37) H Alanine Aminotransferase (ALT/SGPT) 169 U/L (12-78) H Alkaline Phosphatase 60 U/L (46-116) Total Protein 4.6 G/DL (6.4-8.2) L Albumin 1.2 G/DL (3.4-5.0) L Globulin 3.4 g/dL Albumin/Globulin Ratio 0.4 (1.0-2.7) L Arterial Blood pH 7.479 (7.350-7.450) Arterial Blood Partial Pressure CO2 30.4 mmHg (35.0-45.0) L Arterial Blood Partial Pressure O2 80.1 mmHg (75.0-100.0) Arterial Blood HCO3 22.1 mmol/L (22.0-26.0) Arterial Blood Oxygen Saturation 94.8 % (95-100) L Arterial Blood Base Excess -0.9 (-2-2) Jonathan Test Positive Current Medications Medications (Trade) Dose Ordered Sig/Katy Route PRN Reason Start Time Stop Time Status Last Admin Dose Admin Acetaminophen (Tylenol) 650 mg Q4H PRN GT FEVER 06/03/20 11:45 07/03/20 11:44 06/15/20 03:17 Amikacin Protocol (Amikacin pharmacy to dose) 1 ea DAILY PRN MISC Per rx protocol 06/16/20 12:00 07/16/20 11:59 Amikacin Sulfate 1000 mg/Sodium Chloride 114 ml @ 114 mls/hr Q36H IV 06/16/20 14:00 06/23/20 13:59 06/16/20 13:56 Chlorhexidine Gluconate (Alla-Hex 2%) 1 applic DAILY@2000 TOPIC 06/08/20 20:00 09/06/20 19:59 06/16/20 20:03 Clotrimazole (Lotrimin) 1 applic Q12HR TOPIC 06/07/20 13:00 09/05/20 12:59 06/17/20 08:57 Dextrose (Dextrose 50%) 25 ml Q30M PRN IV Hypoglycemia 06/03/20 11:30 08/28/20 11:29 Dextrose (Dextrose 50%) 50 ml Q30M PRN IV Hypoglycemia 06/03/20 11:30 08/28/20 11:29 Dopamine HCl/ Dextrose 250 ml @ 0 mls/hr Q24H IV 06/12/20 11:15 09/10/20 11:14 06/14/20 19:47 Hydrocortisone (Solu-CORTEF) 100 mg EVERY 8 HOURS IV 06/07/20 14:00 09/05/20 13:59 06/17/20 05:32 Levothyroxine Sodium (Synthroid) 75 mcg DAILY GT 06/04/20 09:00 06/30/20 08:59 06/17/20 08:57 Lorazepam (Ativan 2mg/ml 1ml) 2 mg Q2H PRN IV For Anxiety 06/12/20 17:30 06/19/20 17:29 06/12/20 17:37 Meropenem 1 gm/ Sodium Chloride 55 ml @ 110 mls/hr Q8H IVPB 06/14/20 12:00 06/19/20 11:59 06/17/20 11:13 Midodrine (Pro-Amatine) 10 mg Q8HR GT 06/05/20 14:00 09/03/20 13:59 06/17/20 05:32 Norepinephrine Bitartrate 16 mg/ Dextrose 500 ml @ 0 mls/hr Q24H IV 06/08/20 07:45 07/07/20 12:59 06/12/20 08:43 Ondansetron HCl (Zofran) 4 mg Q6H PRN IVP Nausea & Vomiting 06/03/20 12:00 06/29/20 11:59 Pantoprazole (Protonix) 40 mg DAILY IV 06/04/20 09:00 06/30/20 08:59 06/17/20 08:57 Phenylephrine HCl 50 mg/Dextrose 250 ml @ 0 mls/hr Q24H PRN IV For hypotension 06/06/20 17:45 07/06/20 17:44 06/08/20 01:49 Polyethylene Glycol (Miralax) 17 gm DAILYPRN PRN GT Constipation 06/03/20 12:00 06/29/20 11:59 Valproic Acid (Depakene) 500 mg EVERY 8 HOURS GT 06/03/20 14:00 06/29/20 21:59 06/17/20 05:33 Suki Camejo M.D. Jun 17, 2020 12:46
--- NOTE | 2020-06-17 15:02 | NUR ---
NURSE NOTES: Seen by Dr. Camejo and assessed patient.
--- NOTE | 2020-06-17 15:25 | Nephrology Progress Note ---
Assessment/Plan Problem List: (1) LEANN (acute kidney injury) (2) Respiratory failure requiring intubation (3) Down's syndrome (4) Seizure disorder (5) Hypothyroidism Assessment Acute renal failure, likely due to hypotension Acute respiratory distress, hypoxia Seizure disorder Hypothyroidism Down syndrome Full code Fluid challenge with IV fluids and albumin Midodrine for BP above 100 systolic Check TSH level Check Correct level Monitor renal parameters Urine studies Per orders Plan June 17: Labs reviewed. Status quo. D5W 500 cc IV ordered. Continue to monitor renal parameters. June 16: Status quo. Labs reviewed. Overall condition unchanged. Patient was transfused and hemoglobin higher. Continue current management. Patient remains full code. June 15: Status quo. Overall condition poor. Very low albumin. Edematous. Hypotensive. Hemoglobin lower. Anemia work-up ordered. I favor transfusion 2 units of packed RBCs. Patient remains full code. I favor supportive care only. Will discuss. June 14: Electrolyte abnormalities addressed. Serum creatinine lower. Continue per current management. June 13: Status unchanged. Lab reviewed. Serum potassium 2.7. IV potassium chloride ordered. Serum creatinine low at 1.6 stable. Blood pressure 90s systolic June 12: Status quo. Labs reviewed. Renal parameters stable. Serum creatinine down to 1.6. Medication list reviewed. Continues to be on midodrine. Continue per consultants. June 11: Status quo. Labs reviewed. Electrolytes adjusted. Serum creatinine down to 1.8. Continue per consultants. June 10: Status quo. Labs reviewed. Phosphorus supplement IV given. Serum creatinine 2. Continue per consultants. June 09: Requires less pressors. Albumin bolus given. 1 dose of Lasix IV ordered as the patient severely edematous. Patient serum albumin is very low. Continue per consultants. June 08: Continues to be intubated. Labs reviewed. Serum creatinine 1.9 unchanged. Blood pressure more stable. Off 1 of the pressors. Continue to monitor renal parameters. Continue per consultants. Patient now on hydrocortisone 100 mg every 8 hours. Will decrease IV fluid. Normal saline down to 50 cc an hour. June 07: Intubated. Labs reviewed. Creatinine 1.9 unchanged. Continue same treatment plan. Per consultants. Overall poor prognosis since the patient remains on pressors and her pulmonary status is worsening. June 06: Remains intubated. Labs reviewed. Creatinine 1.9. Blood pressure systolic 90s. Continue per consultants. June 05: Remains intubated. Labs reviewed. Serum creatinine lower to 2. Vancomycin level lower. Remains hypotensive on pressors. Will increase midodrine to 10 mg every 8 hours. Continue per consultants. Continue to monitor renal parameters. June 04: Patient now in ICU. Intubated. On pressors. Labs reviewed. Will increase midodrine. Aim to keep blood pressure over 100 systolic. Will give albumin bolus. Will check vancomycin level which was elevated when checked previously on June 01. Will monitor renal parameters. Continue per consultants. Subjective ROS Limited/Unobtainable: Yes Objective Objective Last 24 Hour Vital Signs Date Time Temp Pulse Resp B/P (MAP) Pulse Ox O2 Delivery O2 Flow Rate FiO2 06/17/20 13:00 58 26 108/58 (75) 92 06/17/20 12:00 98.0 55 26 105/56 (72) 94 06/17/20 12:00 Mechanical Ventilator Mechanical Ventilator 06/17/20 12:00 55 06/17/20 12:00 90 06/17/20 11:30 55 26 90 06/17/20 11:15 130/63 06/17/20 11:00 55 25 114/57 (76) 90 06/17/20 10:00 51 26 130/63 (85) 90 06/17/20 09:16 56 26 90 06/17/20 09:00 90 06/17/20 09:00 56 24 120/63 (82) 98 06/17/20 08:00 97.8 60 24 120/63 (82) 94 06/17/20 08:00 90 06/17/20 08:00 Mechanical Ventilator Mechanical Ventilator 06/17/20 08:00 51 06/17/20 07:45 136/67 06/17/20 07:15 59 26 90 06/17/20 07:00 58 24 136/67 (90) 98 06/17/20 06:00 55 26 110/56 (74) 98 06/17/20 05:00 59 27 109/50 (69) 97 06/17/20 04:00 100 06/17/20 04:00 Mechanical Ventilator Mechanical Ventilator 06/17/20 04:00 98.8 66 26 95/57 (70) 98 06/17/20 04:00 61 06/17/20 03:00 67 27 107/63 (78) 97 06/17/20 02:41 65 30 100 06/17/20 02:00 56 26 113/65 (81) 98 06/17/20 01:30 59 26 120/69 (86) 96 06/17/20 01:00 61 25 104/53 (70) 96 06/17/20 00:30 58 26 117/54 (75) 94 06/17/20 00:00 Mechanical Ventilator Mechanical Ventilator 06/17/20 00:00 98.8 62 26 119/62 (81) 96 06/16/20 23:00 57 26 106/76 (86) 97 06/16/20 22:39 58 26 100 06/16/20 22:00 62 25 92/65 (74) 91 06/16/20 21:00 61 26 96/49 (65) 94 06/16/20 20:00 Mechanical Ventilator Mechanical Ventilator 06/16/20 20:00 100 06/16/20 20:00 60 06/16/20 20:00 99.0 54 26 109/52 (71) 93 06/16/20 19:06 58 26 100 06/16/20 19:00 62 26 104/52 (69) 94 06/16/20 18:00 84 23 138/99 (112) 93 06/16/20 17:03 69 26 108/52 (70) 93 06/16/20 16:00 Mechanical Ventilator Mechanical Ventilator 06/16/20 16:00 63 06/16/20 16:00 100 06/16/20 16:00 99.3 70 28 109/52 (71) 93 06/16/20 16:00 70 28 109/52 (71) 93 06/16/20 16:00 62 06/16/20 15:28 62 26 100 Intake and Output 06/16/20 06/17/20 19:00 07:00 Intake Total 1189 ml 735 ml Output Total 550 ml 610 ml Balance 639 ml 125 ml Free Water 120 ml 80 ml IV Total 669 ml 55 ml Tube Feeding 400 ml 600 ml Output Urine Total 550 ml 610 ml # Bowel Movements 2 Laboratory Tests 06/17/20 02:00: Random Amikacin Level 15.8 06/17/20 04:00: Stool Occult Blood Negative 06/17/20 04:30: White Blood Count 22.8*H, Red Blood Count 2.71L, Hemoglobin 9.0L, Hematocrit 26.2L, Mean Corpuscular Volume 97, Mean Corpuscular Hemoglobin 33.0H, Mean Corpuscular Hemoglobin Concent 34.2, Red Cell Distribution Width 15.1H, Platelet Count 127L, Mean Platelet Volume 9.0, Neutrophils (%) (Auto) , Lymphocytes (%) (Auto) , Monocytes (%) (Auto) , Eosinophils (%) (Auto) , Basophils (%) (Auto) , Differential Total Cells Counted 100, Neutrophils % ( Manual) 89H, Lymphocytes % (Manual) 7L, Monocytes % (Manual) 4, Eosinophils % ( Manual) 0, Basophils % (Manual) 0, Band Neutrophils 0, Platelet Estimate DecreasedL, Platelet Morphology Normal, Anisocytosis 1+, Sodium Level 151H, Potassium Level 3.8, Chloride Level 119H, Carbon Dioxide Level 26, Anion Gap 6, Blood Urea Nitrogen 44H, Creatinine 1.1, Estimat Glomerular Filtration Rate 51.0 , Glucose Level 177H, Calcium Level 7.5L, Phosphorus Level 3.0, Magnesium Level 2.1, Total Bilirubin 0.4, Aspartate Amino Transf (AST/SGOT) 54H, Alanine Aminotransferase (ALT/SGPT) 169H, Alkaline Phosphatase 60, Total Protein 4.6L, Albumin 1.2L, Globulin 3.4, Albumin/Globulin Ratio 0.4L 06/17/20 07:29: Arterial Blood pH 7.479H, Arterial Blood Partial Pressure CO2 30.4L, Arterial Blood Partial Pressure O2 80.1, Arterial Blood HCO3 22.1, Arterial Blood Oxygen Saturation 94.8L, Arterial Blood Base Excess -0.9, Jonathan Test Positive Height (Feet): 5 Height (Inches): 3.00 Weight (Pounds): 172 General Appearance: no apparent distress EENT: other - Being vented Cardiovascular: bradycardia Respiratory/Chest: decreased breath sounds Abdomen: distended Keron Pitt MD Jun 17, 2020 15:25
[2020-06-17 15:27] LABS: APPEARANCE,URINE CLEAR; BILIRUBIN, URINE NEGATIVE (NEGATIVE); GLUCOSE, URINE (UA) NEGATIVE (NEGATIVE); KETONES,URINE NEGATIVE (NEGATIVE); LEUKOCYTE ESTERASE ,URINE NEGATIVE (NEGATIVE); NITRITE,URINE NEGATIVE (NEGATIVE); PH,URINE 6 (4.5-8.0); PROTEIN,URINE 2+ (NEGATIVE); UROBILINOGEN,URINE NORMAL MG/DL (0.0-1.0)
[2020-06-17 15:29] LABS: COLOR,URINE YELLOW
--- NOTE | 2020-06-17 16:42 | NUR ---
NURSE NOTES: Bed bath given. Patient had small soft brown color BM.
--- NOTE | 2020-06-17 18:10 | NUR ---
NURSE NOTES: Vent setting AC 26, VT 500, FiO2 90% and Peep 10. O2 sat 93% on the monitor. SB 50s on the monitor. No distress noted. Kept dry, clean, comfortable. Will continue plan of care.
--- NOTE | 2020-06-17 19:15 | NUR ---
HAND-OFF: Report given to TAI Marvin. Endorsed plan of care.
--- NOTE | 2020-06-17 19:30 | NUR ---
NURSE NOTES: Received report from TAI Zamorano. Patient in bed sleeping comfortable, no s/s of acute distress noted. No fever. Orally intubated Fi02 90%O2 Sat 94% on the monitor. HOB elevated.G-tube intact, clean and running Vital AF 1.2 at 60ml/hr. Gregorio intact and draining with yellow color urine. Left upper arm PICC intact, clean and running TKO. Kept dry, clean, comfortable and HOB>30. Call light placed in easy reach. Bed in lowest position and locked. Seizure precaution and contact isolation maintained and observed.SCD on bilateral legs. Will continue plan of care.
--- NOTE | 2020-06-17 19:33 | Pulmonolgy Critical Care Note ---
Critical Care - Asmt/Plan Problems: (1) Acute respiratory failure (2) Bacteremia (3) Pneumonia (4) Sepsis (5) HCAP (healthcare-associated pneumonia) (6) Seizure disorder (7) Down's syndrome Respiratory: monitor respiratory rate, adjust FIO2 Cardiac: continue pressors, stop pressors, continue to monitor HR/BP Renal: keep IV fluid, check electrolytes Infectious Disease: check cultures Gastrointestinal: continue feedings/current rate Endocrine: continue sliding scale insulin Hematologic: transfuse if hgb<8.5 Neurologic: PRN Ativan, PRN Morphine, keep patient comfortable Prophylaxis: Protonix, Heparin Notes Reviewed: police magistrate, 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 with: nurses, consultants, pillowcase cuttermanager parking - Objective Last 24 Hour Vital Signs Date Time Temp Pulse Resp B/P (MAP) Pulse Ox O2 Delivery O2 Flow Rate FiO2 06/17/20 19:00 54 26 101/51 (68) 93 06/17/20 18:00 54 26 109/50 (69) 91 06/17/20 17:00 57 26 97/47 (64) 94 06/17/20 16:00 65 06/17/20 16:00 98.8 59 26 121/58 (79) 94 06/17/20 16:00 90 06/17/20 16:00 Mechanical Ventilator Mechanical Ventilator 06/17/20 15:25 67 26 90 06/17/20 15:00 61 25 128/60 (82) 94 06/17/20 14:00 58 25 107/67 (80) 93 06/17/20 13:00 58 26 108/58 (75) 92 06/17/20 12:00 98.0 55 26 105/56 (72) 94 06/17/20 12:00 Mechanical Ventilator Mechanical Ventilator 06/17/20 12:00 55 06/17/20 12:00 90 06/17/20 11:30 55 26 90 06/17/20 11:15 130/63 06/17/20 11:00 55 25 114/57 (76) 90 06/17/20 10:00 51 26 130/63 (85) 90 06/17/20 09:16 56 26 90 06/17/20 09:00 90 06/17/20 09:00 56 24 120/63 (82) 98 06/17/20 08:00 97.8 60 24 120/63 (82) 94 06/17/20 08:00 90 06/17/20 08:00 Mechanical Ventilator Mechanical Ventilator 06/17/20 08:00 51 06/17/20 07:45 136/67 06/17/20 07:15 59 26 90 06/17/20 07:00 58 24 136/67 (90) 98 06/17/20 06:00 55 26 110/56 (74) 98 06/17/20 05:00 59 27 109/50 (69) 97 06/17/20 04:00 100 06/17/20 04:00 Mechanical Ventilator Mechanical Ventilator 06/17/20 04:00 98.8 66 26 95/57 (70) 98 06/17/20 04:00 61 06/17/20 03:00 67 27 107/63 (78) 97 06/17/20 02:41 65 30 100 06/17/20 02:00 56 26 113/65 (81) 98 06/17/20 01:30 59 26 120/69 (86) 96 06/17/20 01:00 61 25 104/53 (70) 96 06/17/20 00:30 58 26 117/54 (75) 94 06/17/20 00:00 Mechanical Ventilator Mechanical Ventilator 06/17/20 00:00 98.8 62 26 119/62 (81) 96 06/16/20 23:00 57 26 106/76 (86) 97 06/16/20 22:39 58 26 100 06/16/20 22:00 62 25 92/65 (74) 91 06/16/20 21:00 61 26 96/49 (65) 94 06/16/20 20:00 Mechanical Ventilator Mechanical Ventilator 06/16/20 20:00 100 06/16/20 20:00 60 06/16/20 20:00 99.0 54 26 109/52 (71) 93 Status: sedated Condition: critical HEENT: atraumatic, normocephalic Neck: full ROM Heart: HR/BP stable Abdomen: non-tender Extremities: no C/C/E Decubiti: stage Micro: Microbiology Date/Time Source Procedure Growth Status 06/15/20 14:00 Sputum Gram Stain - Final Resulted 06/15/20 14:00 Sputum Sputum Culture - Preliminary NO GROWTH AFTER 24 HOURS Resulted 06/15/20 14:00 Indwelling Cath Urine Culture - Preliminary NO GROWTH AFTER 24 HOURS Resulted Accucheck: 131 Critical Care - Subjective ROS Limited/Unobtainable: Yes FI02: 90 Vent Support Breath Rate: 26 Vent Support Mode: AC Vent Tidal Volume: 500 Sputum Amount: Small PEEP: 10.0 PIP: 55 Tube Feeding Amount: 60 I&O: Intake and Output 06/16/20 06/17/20 19:00 07:00 Intake Total 1189 ml 735 ml Output Total 550 ml 610 ml Balance 639 ml 125 ml Free Water 120 ml 80 ml IV Total 669 ml 55 ml Tube Feeding 400 ml 600 ml Output Urine Total 550 ml 610 ml # Bowel Movements 2 ET-Tube: 7.5 ET Position: 22 Labs: Laboratory Tests Test 06/17/20 02:00 06/17/20 04:00 06/17/20 04:30 06/17/20 07:29 Random Amikacin Level 15.8 MG/L Stool Occult Blood Negative (NEGATIVE) White Blood Count 22.8 K/UL (4.8-10.8) *H Red Blood Count 2.71 M/UL (4.20-5.40) L Hemoglobin 9.0 G/DL (12.0-16.0) L Hematocrit 26.2 % (37.0-47.0) L Mean Corpuscular Volume 97 FL (80-99) Mean Corpuscular Hemoglobin 33.0 PG (27.0-31.0) H Mean Corpuscular Hemoglobin Concent 34.2 G/DL (32.0-36.0) Red Cell Distribution Width 15.1 % (11.6-14.8) H Platelet Count 127 K/UL (150-450) L Mean Platelet Volume 9.0 FL (6.5-10.1) Neutrophils (%) (Auto) % (45.0-75.0) Lymphocytes (%) (Auto) % (20.0-45.0) Monocytes (%) (Auto) % (1.0-10.0) Eosinophils (%) (Auto) % (0.0-3.0) Basophils (%) (Auto) % (0.0-2.0) Differential Total Cells Counted 100 Neutrophils % (Manual) 89 % (45-75) H Lymphocytes % (Manual) 7 % (20-45) L Monocytes % (Manual) 4 % (1-10) Eosinophils % (Manual) 0 % (0-3) Basophils % (Manual) 0 % (0-2) Band Neutrophils 0 % (0-8) Platelet Estimate Decreased L Platelet Morphology Normal Anisocytosis 1+ Sodium Level 151 MMOL/L (136-145) H Potassium Level 3.8 MMOL/L (3.5-5.1) Chloride Level 119 MMOL/L (98-107) H Carbon Dioxide Level 26 MMOL/L (21-32) Anion Gap 6 mmol/L (5-15) Blood Urea Nitrogen 44 mg/dL (7-18) H Creatinine 1.1 MG/DL (0.55-1.30) Estimat Glomerular Filtration Rate 51.0 mL/min (>60) Glucose Level 177 MG/DL (74-106) H Calcium Level 7.5 MG/DL (8.5-10.1) L Phosphorus Level 3.0 MG/DL (2.5-4.9) Magnesium Level 2.1 MG/DL (1.8-2.4) Total Bilirubin 0.4 MG/DL (0.2-1.0) Aspartate Amino Transf (AST/SGOT) 54 U/L (15-37) H Alanine Aminotransferase (ALT/SGPT) 169 U/L (12-78) H Alkaline Phosphatase 60 U/L (46-116) Total Protein 4.6 G/DL (6.4-8.2) L Albumin 1.2 G/DL (3.4-5.0) L Globulin 3.4 g/dL Albumin/Globulin Ratio 0.4 (1.0-2.7) L Arterial Blood pH 7.479 (7.350-7.450) Arterial Blood Partial Pressure CO2 30.4 mmHg (35.0-45.0) L Arterial Blood Partial Pressure O2 80.1 mmHg (75.0-100.0) Arterial Blood HCO3 22.1 mmol/L (22.0-26.0) Arterial Blood Oxygen Saturation 94.8 % (95-100) L Arterial Blood Base Excess -0.9 (-2-2) Jonathan Test Positive Test 06/17/20 13:55 Urine Color Yellow Urine Appearance Clear Urine pH 6 (4.5-8.0) Urine Specific [place] 1.015 (1.005-1.035) Urine Protein 2+ (NEGATIVE) H Urine Glucose (UA) Negative (NEGATIVE) Urine Ketones Negative (NEGATIVE) Urine Blood 5+ (NEGATIVE) H Urine Nitrite Negative (NEGATIVE) Urine Bilirubin Negative (NEGATIVE) Urine Urobilinogen Normal MG/DL (0.0-1.0) Urine Leukocyte Esterase Negative (NEGATIVE) Urine RBC 15-20 /HPF (0 - 2) H Urine WBC 0-2 /HPF (0 - 2) Urine Squamous Epithelial Cells Occasional /LPF Urine Bacteria Few /HPF (NONE) Elayne Allred MD Jun 17, 2020 19:33
[2020-06-17] MEDS: Dyna-Hex 2% Top Sol 2oz TOPIC SCH (20:44)
--- NOTE | 2020-06-17 22:00 | NUR ---
NURSE NOTES: patient in bed suctioned orally. no s/s of acute distress noted. HOB elevated. Gt intact no residual. seizure precaution and contact isolation maintained and observed. frequent visual checks continued.
[2020-06-18] VITALS (24 sets, daily range): BP systolic 95–127; BP diastolic 45–72
--- NOTE | 2020-06-18 | NUR ---
NURSE NOTES: Bed bath given tolerated well.
[2020-06-18] MEDS: Amikacin 1,000 MG in NS 110 ML IV SCH (01:31)
[2020-06-18] MEDS: Meropenem 1 GM in NS 55 ML IVPB SCH ×3 (03:50→20:45)
--- NOTE | 2020-06-18 04:00 | NUR ---
NURSE NOTES: Patient in bed sleeping comfortable, no s/s of acute distress noted. No fever. Orally intubated Fi02 95%O2 Sat 92% on the monitor. HOB elevated.G-tube intact, clean and running Vital AF 1.2 at 60ml/hr. Gregorio intact and draining with yellow color urine. Left upper arm PICC intact, clean and running TKO. Kept dry, clean, comfortable and HOB>30. Call light placed in easy reach. Bed in lowest position and locked. Seizure precaution and contact isolation maintained and observed.SCD on bilateral legs. Will continue plan of care.
[2020-06-18 05:27] LABS: HEMOGLOBIN 9.1 G/DL (12.0-16.0); MEAN CORPUSCULAR VOLUME 97 FL (80-99); PLATELET COUNT 161 K/UL (150-450); RED BLOOD COUNT 2.79 M/UL (4.20-5.40); RED CELL DISTRIBUTION WIDTH 14.8 % (11.6-14.8); WHITE BLOOD COUNT 20.4 K/UL (4.8-10.8)
[2020-06-18 05:41] LABS: ALANINE AMINOTRANSFERASE 155 U/L (12-78); ALBUMIN 1.2 G/DL (3.4-5.0); ALBUMIN/GLOBULIN RATIO 0.3 (1.0-2.7); ALKALINE PHOSPHATASE 63 U/L (46-116); ANION GAP 5 mmol/L (5-15); ASPARTATE AMINO TRANSFERASE 60 U/L (15-37); BILIRUBIN,TOTAL 0.4 MG/DL (0.2-1.0); BLOOD UREA NITROGEN 41 mg/dL (7-18); CALCIUM 7.5 MG/DL (8.5-10.1); CARBON DIOXIDE 27 MMOL/L (21-32); CHLORIDE 119 MMOL/L (98-107); POTASSIUM 3.5 MMOL/L (3.5-5.1); SODIUM 151 MMOL/L (136-145)
[2020-06-18] MEDS: Hydrocortisone 100mg Inj IV SCH ×3 (05:59→22:16)
[2020-06-18] MEDS: Midodrine 10mg tab GT SCH ×3 (05:59→22:16)
[2020-06-18] MEDS: Valproic Acid 250mg/5ml Liquid GT SCH ×3 (05:59→22:16)
--- NOTE | 2020-06-18 06:00 | NUR ---
NURSE NOTES: patient in bed awake, Repositioned patient in bed. TV therapy provided. no s/s of acute distress noted. HOB elevated. Gt intact no residual. seizure precaution and contact isolation maintained and observed. frequent visual checks continued. no s/s of hypo/hyperglycemia. SR on groundwater monitoring technician HR 67. will continue plan of care.
--- NOTE | 2020-06-18 07:12 | NUR ---
HAND-OFF: Report given to Fredrick LUJAN.
--- NOTE | 2020-06-18 07:15 | NUR ---
NURSE NOTES: Report received from Shavonne Billings RN.Pt resting quietly in bed awake,with flat affect, Down Syndrome noted no resp distress,orally intubated,ETT 7.5,Lip line 22cm, hooked to vent,ordered vent settings tolerated ,GTF Vital AF 1.2 at 60 ml/hr no residual noted,Gregorio cath draining yellow urine with adequate amount,skin warm,dry and edematous,IV site to JODY PICC line intact ,SR up x2 HOB elevated,bed lock in lowest position,will continue with plans of care.
[2020-06-18] MEDS: Norepinephrine Bitartrate 16 MG in D5W 500ml 484 ML IV SCH (07:45)
[2020-06-18] MEDS: Pantoprazole Inj IV SCH (08:59)
--- NOTE | 2020-06-18 09:00 | NUR ---
NURSE NOTES: Pulled up and repositioned,ETT suctioning done PRN,no resp distress noted,pt stable.
--- NOTE | 2020-06-18 09:14 | Nephrology Progress Note ---
Assessment/Plan Problem List: (1) LEANN (acute kidney injury) (2) Respiratory failure requiring intubation (3) Down's syndrome (4) Seizure disorder (5) Hypothyroidism Assessment Acute renal failure, likely due to hypotension Acute respiratory distress, hypoxia Seizure disorder Hypothyroidism Down syndrome Full code Fluid challenge with IV fluids and albumin Midodrine for BP above 100 systolic Check TSH level Check Correct level Monitor renal parameters Urine studies Per orders Plan June 18: Lab reviewed. Status unchanged. Serum sodium 151 unchanged. Stable from renal standpoint of view. June 17: Labs reviewed. Status quo. D5W 500 cc IV ordered. Continue to monitor renal parameters. June 16: Status quo. Labs reviewed. Overall condition unchanged. Patient was transfused and hemoglobin higher. Continue current management. Patient remains full code. June 15: Status quo. Overall condition poor. Very low albumin. Edematous. Hypotensive. Hemoglobin lower. Anemia work-up ordered. I favor transfusion 2 units of packed RBCs. Patient remains full code. I favor supportive care only. Will discuss. June 14: Electrolyte abnormalities addressed. Serum creatinine lower. Continue per current management. June 13: Status unchanged. Lab reviewed. Serum potassium 2.7. IV potassium chloride ordered. Serum creatinine low at 1.6 stable. Blood pressure 90s systolic June 12: Status quo. Labs reviewed. Renal parameters stable. Serum creatinine down to 1.6. Medication list reviewed. Continues to be on midodrine. Continue per consultants. June 11: Status quo. Labs reviewed. Electrolytes adjusted. Serum creatinine down to 1.8. Continue per consultants. June 10: Status quo. Labs reviewed. Phosphorus supplement IV given. Serum creatinine 2. Continue per consultants. June 09: Requires less pressors. Albumin bolus given. 1 dose of Lasix IV ordered as the patient severely edematous. Patient serum albumin is very low. Continue per consultants. June 08: Continues to be intubated. Labs reviewed. Serum creatinine 1.9 unchanged. Blood pressure more stable. Off 1 of the pressors. Continue to monitor renal parameters. Continue per consultants. Patient now on hydrocortisone 100 mg every 8 hours. Will decrease IV fluid. Normal saline down to 50 cc an hour. June 07: Intubated. Labs reviewed. Creatinine 1.9 unchanged. Continue same treatment plan. Per consultants. Overall poor prognosis since the patient remains on pressors and her pulmonary status is worsening. June 06: Remains intubated. Labs reviewed. Creatinine 1.9. Blood pressure systolic 90s. Continue per consultants. June 05: Remains intubated. Labs reviewed. Serum creatinine lower to 2. Vancomycin level lower. Remains hypotensive on pressors. Will increase midodrine to 10 mg every 8 hours. Continue per consultants. Continue to monitor renal parameters. June 04: Patient now in ICU. Intubated. On pressors. Labs reviewed. Will increase midodrine. Aim to keep blood pressure over 100 systolic. Will give albumin bolus. Will check vancomycin level which was elevated when checked previously on June 01. Will monitor renal parameters. Continue per consultants. Subjective ROS Limited/Unobtainable: Yes Objective Objective Last 24 Hour Vital Signs Date Time Temp Pulse Resp B/P (MAP) Pulse Ox O2 Delivery O2 Flow Rate FiO2 06/18/20 08:00 95 06/18/20 08:00 98.5 64 25 107/61 (76) 94 06/18/20 07:00 69 25 107/72 (84) 94 06/18/20 06:50 66 27 95 06/18/20 06:00 62 25 95/72 (80) 91 06/18/20 05:00 68 23 98/51 (67) 92 06/18/20 04:00 Mechanical Ventilator Mechanical Ventilator 06/18/20 04:00 95 06/18/20 04:00 98.0 67 25 101/52 (68) 91 06/18/20 03:42 66 06/18/20 03:17 61 26 95 06/18/20 03:00 52 24 127/62 (83) 93 06/18/20 02:00 47 26 116/61 (79) 90 06/18/20 01:00 48 26 110/66 (81) 93 06/18/20 00:00 68 06/18/20 00:00 95 06/18/20 00:00 75 25 117/57 (77) 93 06/18/20 00:00 Mechanical Ventilator Mechanical Ventilator 06/17/20 23:05 58 26 95 06/17/20 23:00 59 26 114/49 (70) 94 06/17/20 22:00 64 26 93/50 (64) 93 06/17/20 21:00 58 26 98/53 (68) 92 06/17/20 20:00 Mechanical Ventilator Mechanical Ventilator 06/17/20 20:00 98.9 62 26 107/50 (69) 91 06/17/20 20:00 60 06/17/20 20:00 95 06/17/20 19:30 62 26 95 06/17/20 19:00 54 26 101/51 (68) 93 06/17/20 18:00 54 26 109/50 (69) 91 06/17/20 17:00 57 26 97/47 (64) 94 06/17/20 16:00 65 06/17/20 16:00 98.8 59 26 121/58 (79) 94 06/17/20 16:00 90 06/17/20 16:00 Mechanical Ventilator Mechanical Ventilator 06/17/20 15:25 67 26 90 06/17/20 15:00 61 25 128/60 (82) 94 06/17/20 14:00 58 25 107/67 (80) 93 06/17/20 13:00 58 26 108/58 (75) 92 06/17/20 12:00 98.0 55 26 105/56 (72) 94 06/17/20 12:00 Mechanical Ventilator Mechanical Ventilator 06/17/20 12:00 55 06/17/20 12:00 90 06/17/20 11:30 55 26 90 06/17/20 11:15 130/63 06/17/20 11:00 55 25 114/57 (76) 90 06/17/20 10:00 51 26 130/63 (85) 90 06/17/20 09:16 56 26 90 Intake and Output 06/17/20 06/18/20 19:00 07:00 Intake Total 1175 ml 1314 ml Output Total 680 ml 670 ml Balance 495 ml 644 ml Free Water 130 ml 150 ml IV Total 555 ml 334 ml Tube Feeding 490 ml 770 ml Other 60 ml Output Urine Total 680 ml 670 ml # Bowel Movements 2 4 Laboratory Tests 06/17/20 13:55: Urine Color Yellow, Urine Appearance Clear, Urine pH 6, Urine Specific [place] 1.015, Urine Protein 2+H, Urine Glucose (UA) Negative, Urine Ketones Negative, Urine Blood 5+H, Urine Nitrite Negative, Urine Bilirubin Negative, Urine Urobilinogen Normal, Urine Leukocyte Esterase Negative, Urine RBC 15-20H, Urine WBC 0-2, Urine Squamous Epithelial Cells Occasional, Urine Bacteria Few 06/18/20 04:30: White Blood Count 20.4H, Red Blood Count 2.79L, Hemoglobin 9.1L, Hematocrit 27.0L, Mean Corpuscular Volume 97, Mean Corpuscular Hemoglobin 32.6H, Mean Corpuscular Hemoglobin Concent 33.7, Red Cell Distribution Width 14.8, Platelet Count 161, Mean Platelet Volume 9.1, Neutrophils (%) (Auto) , Lymphocytes (%) ( Auto) , Monocytes (%) (Auto) , Eosinophils (%) (Auto) , Basophils (%) (Auto) , Differential Total Cells Counted 100, Neutrophils % (Manual) 93H, Lymphocytes % (Manual) 5L, Monocytes % (Manual) 2, Eosinophils % (Manual) 0, Basophils % ( Manual) 0, Band Neutrophils 0, Platelet Estimate Adequate, Platelet Morphology Normal, Hypochromasia 1+, Anisocytosis 1+, Macrocytosis 1+, Sodium Level 151H, Potassium Level 3.5, Chloride Level 119H, Carbon Dioxide Level 27, Anion Gap 5, Blood Urea Nitrogen 41H, Creatinine 1.0, Estimat Glomerular Filtration Rate 56.9 , Glucose Level 143H, Calcium Level 7.5L, Phosphorus Level 3.0, Magnesium Level 2.0, Total Bilirubin 0.4, Aspartate Amino Transf (AST/SGOT) 60H, Alanine Aminotransferase (ALT/SGPT) 155H, Alkaline Phosphatase 63, Total Protein 4.7L, Albumin 1.2L, Globulin 3.5, Albumin/Globulin Ratio 0.3L 06/18/20 08:30: Arterial Blood pH 7.483H, Arterial Blood Partial Pressure CO2 30.1L, Arterial Blood Partial Pressure O2 63.4L, Arterial Blood HCO3 22.1, Arterial Blood Oxygen Saturation 91.9L, Arterial Blood Base Excess -0.8, Jonathan Test Positive Height (Feet): 5 Height (Inches): 3.00 Weight (Pounds): 172 General Appearance: no apparent distress EENT: other Cardiovascular: normal rate Respiratory/Chest: decreased breath sounds Abdomen: distended Keron Pitt MD Jun 18, 2020 09:14
[2020-06-18] MEDS: DOPamine 400mg/250ml 250 ML IV SCH (11:15)
--- NOTE | 2020-06-18 11:45 | Pulmonolgy Critical Care Note ---
Critical Care - Asmt/Plan Problems: (1) Acute respiratory failure (2) Bacteremia (3) Pneumonia (4) Sepsis (5) HCAP (healthcare-associated pneumonia) (6) Seizure disorder (7) Down's syndrome Respiratory: monitor respiratory rate, adjust FIO2, CXR Cardiac: continue pressors, continue to monitor HR/BP Renal: F/U I&O, check electrolytes Infectious Disease: check cultures Gastrointestinal: continue feedings/current rate Endocrine: monitor blood sugar Hematologic: monitor H/H, transfuse if hgb<8.5 Neurologic: PRN Ativan, keep patient comfortable Affect: PRN ativan Prophylaxis: Protonix Time Spent (Minutes): 40 Notes 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, 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, 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 with: nurses, consultants, residential case managersenior consulting manager - Objective Last 24 Hour Vital Signs Date Time Temp Pulse Resp B/P (MAP) Pulse Ox O2 Delivery O2 Flow Rate FiO2 06/18/20 11:00 68 25 113/66 (82) 92 06/18/20 10:50 60 26 95 06/18/20 10:00 65 25 101/58 (72) 90 06/18/20 09:00 66 26 113/67 (82) 94 06/18/20 08:00 65 06/18/20 08:00 Mechanical Ventilator Mechanical Ventilator 06/18/20 08:00 95 06/18/20 08:00 98.5 64 25 107/61 (76) 94 06/18/20 07:00 69 25 107/72 (84) 94 06/18/20 06:50 66 27 95 06/18/20 06:00 62 25 95/72 (80) 91 06/18/20 05:00 68 23 98/51 (67) 92 06/18/20 04:00 Mechanical Ventilator Mechanical Ventilator 06/18/20 04:00 95 06/18/20 04:00 98.0 67 25 101/52 (68) 91 06/18/20 03:42 66 06/18/20 03:17 61 26 95 06/18/20 03:00 52 24 127/62 (83) 93 06/18/20 02:00 47 26 116/61 (79) 90 06/18/20 01:00 48 26 110/66 (81) 93 06/18/20 00:00 68 06/18/20 00:00 95 06/18/20 00:00 75 25 117/57 (77) 93 06/18/20 00:00 Mechanical Ventilator Mechanical Ventilator 06/17/20 23:05 58 26 95 06/17/20 23:00 59 26 114/49 (70) 94 06/17/20 22:00 64 26 93/50 (64) 93 06/17/20 21:00 58 26 98/53 (68) 92 06/17/20 20:00 Mechanical Ventilator Mechanical Ventilator 06/17/20 20:00 98.9 62 26 107/50 (69) 91 06/17/20 20:00 60 06/17/20 20:00 95 06/17/20 19:30 62 26 95 06/17/20 19:00 54 26 101/51 (68) 93 06/17/20 18:00 54 26 109/50 (69) 91 06/17/20 17:00 57 26 97/47 (64) 94 06/17/20 16:00 65 06/17/20 16:00 98.8 59 26 121/58 (79) 94 06/17/20 16:00 90 06/17/20 16:00 Mechanical Ventilator Mechanical Ventilator 06/17/20 15:25 67 26 90 06/17/20 15:00 61 25 128/60 (82) 94 06/17/20 14:00 58 25 107/67 (80) 93 06/17/20 13:00 58 26 108/58 (75) 92 06/17/20 12:00 98.0 55 26 105/56 (72) 94 06/17/20 12:00 Mechanical Ventilator Mechanical Ventilator 06/17/20 12:00 55 06/17/20 12:00 90 Status: sedated Condition: critical HEENT: atraumatic, normocephalic Lungs: clear, chest wall tender Heart: HR/BP stable Abdomen: soft, non-tender Extremities: edema Decubiti: location Micro: Microbiology Date/Time Source Procedure Growth Status 06/16/20 13:11 Blood Blood Culture - Preliminary NO GROWTH AFTER 24 HOURS Resulted 06/15/20 14:00 Sputum Gram Stain - Final Resulted 06/15/20 14:00 Sputum Culture - Preliminary Yeast Species Resulted 06/15/20 14:00 Indwelling Cath Urine Culture - Final NO GROWTH AFTER 48 HOURS Complete Accucheck: 131 Critical Care - Subjective ROS Limited/Unobtainable: Yes Condition: critical EKG Rhythm: Sinus Rhythm FI02: 95 Vent Support Breath Rate: 26 Vent Support Mode: AC Vent Tidal Volume: 500 Sputum Amount: Small PEEP: 10.0 PIP: 54 Tube Feeding Amount: 60 I&O: Intake and Output 06/17/20 06/18/20 19:00 07:00 Intake Total 1175 ml 1314 ml Output Total 680 ml 670 ml Balance 495 ml 644 ml Free Water 130 ml 150 ml IV Total 555 ml 334 ml Tube Feeding 490 ml 770 ml Other 60 ml Output Urine Total 680 ml 670 ml # Bowel Movements 2 4 CXR: extensive infiltrate ET-Tube: 7.5 ET Position: 22 Labs: Laboratory Tests Test 06/17/20 13:55 06/18/20 04:30 06/18/20 08:30 Urine Color Yellow Urine Appearance Clear Urine pH 6 (4.5-8.0) Urine Specific [place] 1.015 (1.005-1.035) Urine Protein 2+ (NEGATIVE) H Urine Glucose (UA) Negative (NEGATIVE) Urine Ketones Negative (NEGATIVE) Urine Blood 5+ (NEGATIVE) H Urine Nitrite Negative (NEGATIVE) Urine Bilirubin Negative (NEGATIVE) Urine Urobilinogen Normal MG/DL (0.0-1.0) Urine Leukocyte Esterase Negative (NEGATIVE) Urine RBC 15-20 /HPF (0 - 2) H Urine WBC 0-2 /HPF (0 - 2) Urine Squamous Epithelial Cells Occasional /LPF Urine Bacteria Few /HPF (NONE) White Blood Count 20.4 K/UL (4.8-10.8) H Red Blood Count 2.79 M/UL (4.20-5.40) L Hemoglobin 9.1 G/DL (12.0-16.0) L Hematocrit 27.0 % (37.0-47.0) L Mean Corpuscular Volume 97 FL (80-99) Mean Corpuscular Hemoglobin 32.6 PG (27.0-31.0) H Mean Corpuscular Hemoglobin Concent 33.7 G/DL (32.0-36.0) Red Cell Distribution Width 14.8 % (11.6-14.8) Platelet Count 161 K/UL (150-450) Mean Platelet Volume 9.1 FL (6.5-10.1) Neutrophils (%) (Auto) % (45.0-75.0) Lymphocytes (%) (Auto) % (20.0-45.0) Monocytes (%) (Auto) % (1.0-10.0) Eosinophils (%) (Auto) % (0.0-3.0) Basophils (%) (Auto) % (0.0-2.0) Differential Total Cells Counted 100 Neutrophils % (Manual) 93 % (45-75) H Lymphocytes % (Manual) 5 % (20-45) L Monocytes % (Manual) 2 % (1-10) Eosinophils % (Manual) 0 % (0-3) Basophils % (Manual) 0 % (0-2) Band Neutrophils 0 % (0-8) Platelet Estimate Adequate Platelet Morphology Normal Hypochromasia 1+ Anisocytosis 1+ Macrocytosis 1+ Sodium Level 151 MMOL/L (136-145) H Potassium Level 3.5 MMOL/L (3.5-5.1) Chloride Level 119 MMOL/L (98-107) H Carbon Dioxide Level 27 MMOL/L (21-32) Anion Gap 5 mmol/L (5-15) Blood Urea Nitrogen 41 mg/dL (7-18) H Creatinine 1.0 MG/DL (0.55-1.30) Estimat Glomerular Filtration Rate 56.9 mL/min (>60) Glucose Level 143 MG/DL (74-106) H Calcium Level 7.5 MG/DL (8.5-10.1) L Phosphorus Level 3.0 MG/DL (2.5-4.9) Magnesium Level 2.0 MG/DL (1.8-2.4) Total Bilirubin 0.4 MG/DL (0.2-1.0) Aspartate Amino Transf (AST/SGOT) 60 U/L (15-37) H Alanine Aminotransferase (ALT/SGPT) 155 U/L (12-78) H Alkaline Phosphatase 63 U/L (46-116) Total Protein 4.7 G/DL (6.4-8.2) L Albumin 1.2 G/DL (3.4-5.0) L Globulin 3.5 g/dL Albumin/Globulin Ratio 0.3 (1.0-2.7) L Arterial Blood pH 7.483 (7.350-7.450) Arterial Blood Partial Pressure CO2 30.1 mmHg (35.0-45.0) L Arterial Blood Partial Pressure O2 63.4 mmHg (75.0-100.0) L Arterial Blood HCO3 22.1 mmol/L (22.0-26.0) Arterial Blood Oxygen Saturation 91.9 % (95-100) L Arterial Blood Base Excess -0.8 (-2-2) Jonathan Test Positive Elayne Allred MD Jun 18, 2020 11:45
--- NOTE | 2020-06-18 12:00 | NUR ---
NURSE NOTES: ETT suctioned PRN,HOB elevated,no resp distress presented ,asleep on and off.
--- NOTE | 2020-06-18 12:26 | Diagnostic Imaging Report ---
Indication: Dyspnea Technique: One view of the chest Comparison: 06/17/2020 Findings: Stable satisfactory position of endotracheal tube. Left arm PICC is again aerated. Bilateral interstitial and airspace diffuse infiltrates versus edema are unchanged. Impression: Unchanged, over one day, findings as above.
--- NOTE | 2020-06-18 12:30 | Infectious Diseases Prog Note ---
Assessment/Plan ASSESSMENT: sp code blue 06/03 Septic Shock; SP Fever, recurrent Leukocytosis; recurrent; persistent -06/17 u/a no pyuria -06/16 Bcx NTD (Picc line) -06/14 Bcx NTD ucx Neg sp cx yeast (prelim) -06/03 u/a no pyuria Pneumonia.- COVID 19 neg x3 Acute hypoxic resp failure on VM> NRB 15l 100%; hypoxic on ABG> now VDRF 06/03 - Fio2 80% >100% 06/05> 60% 06/09 >80% 06/10 >95% 06/18 -06/13 CXR:Small bilateral pleural effusions with minor edema. Stable edema with mild worsening in the degree of pleural effusion on the right. -06/09 sp cx Neg 06/08 CXR: Extensive bilateral interstitial and airspace disease appears similar to the prior exam. Moderate to large bilateral pleural effusions appear unchanged. 06/05 CXR: Increasing left upper lobe dense consolidation and likely increasing bilateral pleural fluid. Persistent diffuse dense consolidation elsewhere -06/03 sp cx normal resp marie -06/02 CXR: Increased atelectasis of the right lung, since prior exam of 3 days earlier. New or increased right pleural effusion. Increased left basilar consolidation and/or pleural fluid -COVID Rapid PCR neg 05/31, 05/31, 06/03 -05/30 spc x Group G strep -05/30 CXR: Reduced lung volumes. Patchy bilateral predominantly interstitial pulmonary opacities. Could be from edema and/or pneumonia. There is a broader differential. -legionella ag urine, blasto ab, Histo ab, HIV ab screen, FRANCIS, ANCA neg Persistent, high grade bacteremia- -05/30 Bcx 4/4 sets S. haemolyticus; 05/31 Bcx 3/4 S/ epi; 06/04 Bcx 1.4 S. warnerri; 06/06 Bcx Neg -2d echo: no vegetaions seen ua/ wbc 10-15, nit neg, leuk +1; ucx Neg LEANN; -supratherapeutic vanco levels -Seizure disorder. - Hypothyroidism. - Down syndrome. History of PEG tube placement. [place] resident PLAN: -f/u repeat blood Cx sputum and Urine Cx Cont Meropenem#15/14 (abx d #18-21) given resp decompensation Empiric Amikacin #3 pending repeat cultures 06/12/20 SP Daptomycin #11 9 SP MIcafungin #7, Linezolid #5 06/05 SP Azithromycin #7/7 06/03 SP Ceftriaxone #2 06/02 SP IV Vancomycin #4, Zosyn #4 05/30 SP Cefepime x1, Flagyl x1 - Monitor CBC, BMP. .f/u Repeat cx - COVID neg x3 - Monitor chest x-ray. - Monitor the patient's clinical course and labs. Based on those, we will do further recommendation. -f/u Bcx from picc line, cdiff if diarrhea -Fungitell, asp ag, flow cytometry -Once stable, CT chest/abd/pw/ given persistent leukocytosis Thank you, Dr. Allred, for allowing me to participate in the care of this patient. I will follow the patient with you at this hospitalization. Discussed with RN Subjective Allergies: Coded Allergies: No Known Allergies (Unverified , 10/16/18) afebrile >48hrs off pressors Fio2 95% wbc slightly improved but still on the 20s Objective Last 24 Hour Vital Signs Date Time Temp Pulse Resp B/P (MAP) Pulse Ox O2 Delivery O2 Flow Rate FiO2 06/18/20 12:04 Mechanical Ventilator Mechanical Ventilator 06/18/20 12:00 98.9 66 26 96/59 (71) 92 06/18/20 12:00 95 06/18/20 11:00 68 25 113/66 (82) 92 06/18/20 10:50 60 26 95 06/18/20 10:00 65 25 101/58 (72) 90 06/18/20 09:00 66 26 113/67 (82) 94 06/18/20 08:00 65 06/18/20 08:00 Mechanical Ventilator Mechanical Ventilator 06/18/20 08:00 95 06/18/20 08:00 98.5 64 25 107/61 (76) 94 06/18/20 07:00 69 25 107/72 (84) 94 06/18/20 06:50 66 27 95 06/18/20 06:00 62 25 95/72 (80) 91 06/18/20 05:00 68 23 98/51 (67) 92 06/18/20 04:00 Mechanical Ventilator Mechanical Ventilator 9/10/20 04:00 95 06/18/20 04:00 98.0 67 25 101/52 (68) 91 06/18/20 03:42 66 06/18/20 03:17 61 26 95 06/18/20 03:00 52 24 127/62 (83) 93 06/18/20 02:00 47 26 116/61 (79) 90 06/18/20 01:00 48 26 110/66 (81) 93 06/18/20 00:00 68 06/18/20 00:00 95 06/18/20 00:00 75 25 117/57 (77) 93 06/18/20 00:00 Mechanical Ventilator Mechanical Ventilator 06/17/20 23:05 58 26 95 06/17/20 23:00 59 26 114/49 (70) 94 06/17/20 22:00 64 26 93/50 (64) 93 06/17/20 21:00 58 26 98/53 (68) 92 06/17/20 20:00 Mechanical Ventilator Mechanical Ventilator 06/17/20 20:00 98.9 62 26 107/50 (69) 91 06/17/20 20:00 60 06/17/20 20:00 95 06/17/20 19:30 62 26 95 06/17/20 19:00 54 26 101/51 (68) 93 06/17/20 18:00 54 26 109/50 (69) 91 06/17/20 17:00 57 26 97/47 (64) 94 06/17/20 16:00 65 06/17/20 16:00 98.8 59 26 121/58 (79) 94 06/17/20 16:00 90 06/17/20 16:00 Mechanical Ventilator Mechanical Ventilator 06/17/20 15:25 67 26 90 06/17/20 15:00 61 25 128/60 (82) 94 06/17/20 14:00 58 25 107/67 (80) 93 06/17/20 13:00 58 26 108/58 (75) 92 Height (Feet): 5 Height (Inches): 3.00 Weight (Pounds): 172 HEENT: No pale conjunctivae. No icterus. ETT in place NECK: No lymphadenopathy. CHEST: Coarse breathing sounds. HEART: S1 and S2. ABDOMEN: Soft. PEG tube in place. EXTREMITIES: No cyanosis at this time . SKIN: no rash Microbiology Date/Time Source Procedure Growth Status 06/16/20 13:11 Blood Blood Culture - Preliminary NO GROWTH AFTER 24 HOURS Resulted 06/15/20 14:00 Sputum Gram Stain - Final Resulted 06/15/20 14:00 Sputum Culture - Preliminary Yeast Species Resulted 06/15/20 14:00 Indwelling Cath Urine Culture - Final NO GROWTH AFTER 48 HOURS Complete Laboratory Tests Test 06/17/20 13:55 06/18/20 04:30 06/18/20 08:30 Urine Color Yellow Urine Appearance Clear Urine pH 6 (4.5-8.0) Urine Specific [place] 1.015 (1.005-1.035) Urine Protein 2+ (NEGATIVE) H Urine Glucose (UA) Negative (NEGATIVE) Urine Ketones Negative (NEGATIVE) Urine Blood 5+ (NEGATIVE) H Urine Nitrite Negative (NEGATIVE) Urine Bilirubin Negative (NEGATIVE) Urine Urobilinogen Normal MG/DL (0.0-1.0) Urine Leukocyte Esterase Negative (NEGATIVE) Urine RBC 15-20 /HPF (0 - 2) H Urine WBC 0-2 /HPF (0 - 2) Urine Squamous Epithelial Cells Occasional /LPF Urine Bacteria Few /HPF (NONE) White Blood Count 20.4 K/UL (4.8-10.8) H Red Blood Count 2.79 M/UL (4.20-5.40) L Hemoglobin 9.1 G/DL (12.0-16.0) L Hematocrit 27.0 % (37.0-47.0) L Mean Corpuscular Volume 97 FL (80-99) Mean Corpuscular Hemoglobin 32.6 PG (27.0-31.0) H Mean Corpuscular Hemoglobin Concent 33.7 G/DL (32.0-36.0) Red Cell Distribution Width 14.8 % (11.6-14.8) Platelet Count 161 K/UL (150-450) Mean Platelet Volume 9.1 FL (6.5-10.1) Neutrophils (%) (Auto) % (45.0-75.0) Lymphocytes (%) (Auto) % (20.0-45.0) Monocytes (%) (Auto) % (1.0-10.0) Eosinophils (%) (Auto) % (0.0-3.0) Basophils (%) (Auto) % (0.0-2.0) Differential Total Cells Counted 100 Neutrophils % (Manual) 93 % (45-75) H Lymphocytes % (Manual) 5 % (20-45) L Monocytes % (Manual) 2 % (1-10) Eosinophils % (Manual) 0 % (0-3) Basophils % (Manual) 0 % (0-2) Band Neutrophils 0 % (0-8) Platelet Estimate Adequate Platelet Morphology Normal Hypochromasia 1+ Anisocytosis 1+ Macrocytosis 1+ Sodium Level 151 MMOL/L (136-145) H Potassium Level 3.5 MMOL/L (3.5-5.1) Chloride Level 119 MMOL/L (98-107) H Carbon Dioxide Level 27 MMOL/L (21-32) Anion Gap 5 mmol/L (5-15) Blood Urea Nitrogen 41 mg/dL (7-18) H Creatinine 1.0 MG/DL (0.55-1.30) Estimat Glomerular Filtration Rate 56.9 mL/min (>60) Glucose Level 143 MG/DL (74-106) H Calcium Level 7.5 MG/DL (8.5-10.1) L Phosphorus Level 3.0 MG/DL (2.5-4.9) Magnesium Level 2.0 MG/DL (1.8-2.4) Total Bilirubin 0.4 MG/DL (0.2-1.0) Aspartate Amino Transf (AST/SGOT) 60 U/L (15-37) H Alanine Aminotransferase (ALT/SGPT) 155 U/L (12-78) H Alkaline Phosphatase 63 U/L (46-116) Total Protein 4.7 G/DL (6.4-8.2) L Albumin 1.2 G/DL (3.4-5.0) L Globulin 3.5 g/dL Albumin/Globulin Ratio 0.3 (1.0-2.7) L Arterial Blood pH 7.483 (7.350-7.450) Arterial Blood Partial Pressure CO2 30.1 mmHg (35.0-45.0) L Arterial Blood Partial Pressure O2 63.4 mmHg (75.0-100.0) L Arterial Blood HCO3 22.1 mmol/L (22.0-26.0) Arterial Blood Oxygen Saturation 91.9 % (95-100) L Arterial Blood Base Excess -0.8 (-2-2) Jonathan Test Positive Current Medications Medications (Trade) Dose Ordered Sig/Katy Route PRN Reason Start Time Stop Time Status Last Admin Dose Admin Acetaminophen (Tylenol) 650 mg Q4H PRN GT FEVER 06/03/20 11:45 07/03/20 11:44 06/15/20 03:17 Amikacin Protocol (Amikacin pharmacy to dose) 1 ea DAILY PRN MISC Per rx protocol 06/16/20 12:00 07/16/20 11:59 Amikacin Sulfate 1000 mg/Sodium Chloride 114 ml @ 114 mls/hr Q36H IV 06/16/20 14:00 06/23/20 13:59 06/18/20 01:31 Chlorhexidine Gluconate (Alla-Hex 2%) 1 applic DAILY@1999 TOPIC 06/08/20 20:00 09/06/20 19:59 06/17/20 20:44 Clotrimazole (Lotrimin) 1 applic Q12HR TOPIC 06/07/20 13:00 09/05/20 12:59 06/18/20 08:59 Dextrose (Dextrose 50%) 25 ml Q30M PRN IV Hypoglycemia 06/03/20 11:30 08/28/20 11:29 Dextrose (Dextrose 50%) 50 ml Q30M PRN IV Hypoglycemia 06/03/20 11:30 08/28/20 11:29 Dopamine HCl/ Dextrose 250 ml @ 0 mls/hr Q24H IV 06/12/20 11:15 09/10/20 11:14 06/14/20 19:47 Hydrocortisone (Solu-CORTEF) 100 mg EVERY 8 HOURS IV 06/07/20 14:00 09/05/20 13:59 06/18/20 05:59 Levothyroxine Sodium (Synthroid) 75 mcg DAILY GT 06/04/20 09:00 06/30/20 08:59 06/18/20 08:59 Lorazepam (Ativan 2mg/ml 1ml) 2 mg Q2H PRN IV For Anxiety 06/12/20 17:30 06/19/20 17:29 06/12/20 17:37 Meropenem 1 gm/ Sodium Chloride 55 ml @ 110 mls/hr Q8H IVPB 06/14/20 12:00 06/19/20 11:59 06/18/20 11:55 Midodrine (Pro-Amatine) 10 mg Q8HR GT 06/05/20 14:00 09/03/20 13:59 06/18/20 05:59 Norepinephrine Bitartrate 16 mg/ Dextrose 500 ml @ 0 mls/hr Q24H IV 06/08/20 07:45 07/07/20 12:59 06/12/20 08:43 Ondansetron HCl (Zofran) 4 mg Q6H PRN IVP Nausea & Vomiting 06/03/20 12:00 06/29/20 11:59 Pantoprazole (Protonix) 40 mg DAILY IV 06/04/20 09:00 06/30/20 08:59 06/18/20 08:59 Phenylephrine HCl 50 mg/Dextrose 250 ml @ 0 mls/hr Q24H PRN IV For hypotension 06/06/20 17:45 07/06/20 17:44 06/08/20 01:49 Polyethylene Glycol (Miralax) 17 gm DAILYPRN PRN GT Constipation 06/03/20 12:00 06/29/20 11:59 Valproic Acid (Depakene) 500 mg EVERY 8 HOURS GT 06/03/20 14:00 06/29/20 21:59 06/18/20 05:59 Suki Camejo M.D. Jun 18, 2020 12:30
--- NOTE | 2020-06-18 13:00 | NUR ---
NURSE NOTES: Dr Allred at bedside,updated re pt's status,pt stable no resp distress presented.
--- NOTE | 2020-06-18 13:01 | NUR ---
RADIOLOGY DEPT., CHEST X-RAY DONE.-P.DYE
--- NOTE | 2020-06-18 13:36 | General Progress Note ---
Assessment/Plan Assessment/Plan: 1. History of Down syndrome. 2. Dysphagia with G-tube. 3. Seizure disorder. 4. Hypothyroidism. 5. LEANN. 6. Pneumonia. 7. Sepsis. fu H&H ppi GTF hold GI procedures for now Subjective ROS Limited/Unobtainable: No Allergies: Coded Allergies: No Known Allergies (Unverified , 10/16/18) Objective Last 24 Hour Vital Signs Date Time Temp Pulse Resp B/P (MAP) Pulse Ox O2 Delivery O2 Flow Rate FiO2 06/18/20 13:00 56 25 98/55 (69) 90 06/18/20 12:04 Mechanical Ventilator Mechanical Ventilator 06/18/20 12:00 57 06/18/20 12:00 98.9 66 26 96/59 (71) 92 06/18/20 12:00 95 06/18/20 11:00 68 25 113/66 (82) 92 06/18/20 10:50 60 26 95 06/18/20 10:00 65 25 101/58 (72) 90 06/18/20 09:00 66 26 113/67 (82) 94 06/18/20 08:00 65 06/18/20 08:00 Mechanical Ventilator Mechanical Ventilator 06/18/20 08:00 95 06/18/20 08:00 98.5 64 25 107/61 (76) 94 06/18/20 07:00 69 25 107/72 (84) 94 06/18/20 06:50 66 27 95 06/18/20 06:00 62 25 95/72 (80) 91 06/18/20 05:00 68 23 98/51 (67) 92 06/18/20 04:00 Mechanical Ventilator Mechanical Ventilator 06/18/20 04:00 95 06/18/20 04:00 98.0 67 25 101/52 (68) 91 06/18/20 03:42 66 06/18/20 03:17 61 26 95 06/18/20 03:00 52 24 127/62 (83) 93 06/18/20 02:00 47 26 116/61 (79) 90 06/18/20 01:00 48 26 110/66 (81) 93 06/18/20 00:00 68 06/18/20 00:00 95 06/18/20 00:00 75 25 117/57 (77) 93 06/18/20 00:00 Mechanical Ventilator Mechanical Ventilator 06/17/20 23:05 58 26 95 06/17/20 23:00 59 26 114/49 (70) 94 06/17/20 22:00 64 26 93/50 (64) 93 06/17/20 21:00 58 26 98/53 (68) 92 06/17/20 20:00 Mechanical Ventilator Mechanical Ventilator 06/17/20 20:00 98.9 62 26 107/50 (69) 91 06/17/20 20:00 60 06/17/20 20:00 95 06/17/20 19:30 62 26 95 06/17/20 19:00 54 26 101/51 (68) 93 06/17/20 18:00 54 26 109/50 (69) 91 06/17/20 17:00 57 26 97/47 (64) 94 06/17/20 16:00 65 06/17/20 16:00 98.8 59 26 121/58 (79) 94 06/17/20 16:00 90 06/17/20 16:00 Mechanical Ventilator Mechanical Ventilator 06/17/20 15:25 67 26 90 06/17/20 15:00 61 25 128/60 (82) 94 06/17/20 14:00 58 25 107/67 (80) 93 Intake and Output 06/17/20 06/18/20 19:00 07:00 Intake Total 1175 ml 1314 ml Output Total 680 ml 670 ml Balance 495 ml 644 ml Free Water 130 ml 150 ml IV Total 555 ml 334 ml Tube Feeding 490 ml 770 ml Other 60 ml Output Urine Total 680 ml 670 ml # Bowel Movements 2 4 Laboratory Tests 06/17/20 13:55: Urine Color Yellow, Urine Appearance Clear, Urine pH 6, Urine Specific [place] 1.015, Urine Protein 2+H, Urine Glucose (UA) Negative, Urine Ketones Negative, Urine Blood 5+H, Urine Nitrite Negative, Urine Bilirubin Negative, Urine Urobilinogen Normal, Urine Leukocyte Esterase Negative, Urine RBC 15-20H, Urine WBC 0-2, Urine Squamous Epithelial Cells Occasional, Urine Bacteria Few 06/18/20 04:30: White Blood Count 20.4H, Red Blood Count 2.79L, Hemoglobin 9.1L, Hematocrit 27.0L, Mean Corpuscular Volume 97, Mean Corpuscular Hemoglobin 32.6H, Mean Corpuscular Hemoglobin Concent 33.7, Red Cell Distribution Width 14.8, Platelet Count 161, Mean Platelet Volume 9.1, Neutrophils (%) (Auto) , Lymphocytes (%) ( Auto) , Monocytes (%) (Auto) , Eosinophils (%) (Auto) , Basophils (%) (Auto) , Differential Total Cells Counted 100, Neutrophils % (Manual) 93H, Lymphocytes % (Manual) 5L, Monocytes % (Manual) 2, Eosinophils % (Manual) 0, Basophils % ( Manual) 0, Band Neutrophils 0, Platelet Estimate Adequate, Platelet Morphology Normal, Hypochromasia 1+, Anisocytosis 1+, Macrocytosis 1+, Sodium Level 151H, Potassium Level 3.5, Chloride Level 119H, Carbon Dioxide Level 27, Anion Gap 5, Blood Urea Nitrogen 41H, Creatinine 1.0, Estimat Glomerular Filtration Rate 56.9 , Glucose Level 143H, Calcium Level 7.5L, Phosphorus Level 3.0, Magnesium Level 2.0, Total Bilirubin 0.4, Aspartate Amino Transf (AST/SGOT) 60H, Alanine Aminotransferase (ALT/SGPT) 155H, Alkaline Phosphatase 63, Total Protein 4.7L, Albumin 1.2L, Globulin 3.5, Albumin/Globulin Ratio 0.3L 06/18/20 08:30: Arterial Blood pH 7.483H, Arterial Blood Partial Pressure CO2 30.1L, Arterial Blood Partial Pressure O2 63.4L, Arterial Blood HCO3 22.1, Arterial Blood Oxygen Saturation 91.9L, Arterial Blood Base Excess -0.8, Jonathan Test Positive Height (Feet): 5 Height (Inches): 3.00 Weight (Pounds): 172 General Appearance: no apparent distress EENT: normal ENT inspection Neck: supple Cardiovascular: normal rate Respiratory/Chest: decreased breath sounds Abdomen: normal bowel sounds, non tender, soft Extremities: non-tender Nehemiah Perez MD Jun 18, 2020 13:36
--- NOTE | 2020-06-18 15:32 | NUR ---
HEDIS SPECIALISTSHIPMASTER SI: RESP FAILURE ETT/VENT SUPPORT,PNA T. 98.9 HR 56 RR 25 B/P 96/69 AC 12 TV 500 FIO2 95% PEEP 10 WBC 25.4 NA 151 BUN 41 IS: AMIKACIN IV MEROPENEM IV SOLU CORTEF IV PROTONIX IV ICU STATUS
--- NOTE | 2020-06-18 16:30 | NUR ---
NURSE NOTES: Dr Camejo at bedside,updated re pt's status.
[2020-06-18] MEDS ORDERED: NS 500ML ONE (17:06)
[2020-06-18] MEDS ORDERED: Tubing IV Secondary IV ONE (17:06)
[2020-06-18] MEDS ORDERED: NS 275ml ONE (17:06)
--- NOTE | 2020-06-18 17:30 | NUR ---
NURSE NOTES: Pt noted with large BM to formed brown stools,bed bath given, pulled up repositioned to LT side.
--- NOTE | 2020-06-18 19:04 | Internal Med Progress Note ---
Subjective Date of Service: Jun 18, 2020 Physician Name Joni Copeland Attending Physician Elayne Allred MD Current Medications Medications (Trade) Dose Ordered Sig/Katy Route PRN Reason Start Time Stop Time Status Last Admin Dose Admin Acetaminophen (Tylenol) 650 mg Q4H PRN GT FEVER 06/03/20 11:45 07/03/20 11:44 06/15/20 03:17 Amikacin Protocol (Amikacin pharmacy to dose) 1 ea DAILY PRN MISC Per rx protocol 06/16/20 12:00 07/16/20 11:59 Amikacin Sulfate 1000 mg/Sodium Chloride 114 ml @ 114 mls/hr Q36H IV 06/16/20 14:00 06/23/20 13:59 06/18/20 01:31 Chlorhexidine Gluconate (Alla-Hex 2%) 1 applic DAILY@1999 TOPIC 06/08/20 20:00 09/06/20 19:59 06/17/20 20:44 Clotrimazole (Lotrimin) 1 applic Q12HR TOPIC 06/07/20 13:00 09/05/20 12:59 06/18/20 08:59 Dextrose (Dextrose 50%) 25 ml Q30M PRN IV Hypoglycemia 06/03/20 11:30 08/28/20 11:29 Dextrose (Dextrose 50%) 50 ml Q30M PRN IV Hypoglycemia 06/03/20 11:30 08/28/20 11:29 Dopamine HCl/ Dextrose 250 ml @ 0 mls/hr Q24H IV 06/12/20 11:15 09/10/20 11:14 06/14/20 19:47 Hydrocortisone (Solu-CORTEF) 100 mg EVERY 8 HOURS IV 06/07/20 14:00 09/05/20 13:59 06/18/20 13:17 Levothyroxine Sodium (Synthroid) 75 mcg DAILY GT 06/04/20 09:00 06/30/20 08:59 06/18/20 08:59 Lorazepam (Ativan 2mg/ml 1ml) 2 mg Q2H PRN IV For Anxiety 06/12/20 17:30 06/19/20 17:29 06/12/20 17:37 Meropenem 1 gm/ Sodium Chloride 55 ml @ 110 mls/hr Q8H IVPB 06/14/20 12:00 06/20/20 11:59 06/18/20 11:55 Midodrine (Pro-Amatine) 10 mg Q8HR GT 06/05/20 14:00 09/03/20 13:59 06/18/20 13:17 Norepinephrine Bitartrate 16 mg/ Dextrose 500 ml @ 0 mls/hr Q24H IV 06/08/20 07:45 07/07/20 12:59 06/12/20 08:43 Ondansetron HCl (Zofran) 4 mg Q6H PRN IVP Nausea & Vomiting 06/03/20 12:00 06/29/20 11:59 Pantoprazole (Protonix) 40 mg DAILY IV 06/04/20 09:00 06/30/20 08:59 06/18/20 08:59 Phenylephrine HCl 50 mg/Dextrose 250 ml @ 0 mls/hr Q24H PRN IV For hypotension 06/06/20 17:45 07/06/20 17:44 06/08/20 01:49 Polyethylene Glycol (Miralax) 17 gm DAILYPRN PRN GT Constipation 06/03/20 12:00 06/29/20 11:59 Valproic Acid (Depakene) 500 mg EVERY 8 HOURS GT 06/03/20 14:00 06/29/20 21:59 06/18/20 13:17 Allergies: Coded Allergies: No Known Allergies (Unverified , 10/16/18) ROS Limited/Unobtainable: Yes Subjective 59 YO F with Down's syndrome admitted with hypoxia. Now sepsis and pneumonia. Cover for Int Arturo-DR Hawk. ICU. Intubated and sedated Objective Last Vital Signs Date Time Temp Pulse Resp B/P (MAP) Pulse Ox O2 Delivery O2 Flow Rate FiO2 06/18/20 18:05 57 26 119/47 (71) 94 06/18/20 17:00 Mechanical Ventilator Mechanical Ventilator 06/18/20 16:00 98.9 06/18/20 16:00 95 Laboratory Tests Test 06/18/20 04:30 06/18/20 08:30 White Blood Count 20.4 K/UL (4.8-10.8) H Red Blood Count 2.79 M/UL (4.20-5.40) L Hemoglobin 9.1 G/DL (12.0-16.0) L Hematocrit 27.0 % (37.0-47.0) L Mean Corpuscular Volume 97 FL (80-99) Mean Corpuscular Hemoglobin 32.6 PG (27.0-31.0) H Mean Corpuscular Hemoglobin Concent 33.7 G/DL (32.0-36.0) Red Cell Distribution Width 14.8 % (11.6-14.8) Platelet Count 161 K/UL (150-450) Mean Platelet Volume 9.1 FL (6.5-10.1) Neutrophils (%) (Auto) % (45.0-75.0) Lymphocytes (%) (Auto) % (20.0-45.0) Monocytes (%) (Auto) % (1.0-10.0) Eosinophils (%) (Auto) % (0.0-3.0) Basophils (%) (Auto) % (0.0-2.0) Differential Total Cells Counted 100 Neutrophils % (Manual) 93 % (45-75) H Lymphocytes % (Manual) 5 % (20-45) L Monocytes % (Manual) 2 % (1-10) Eosinophils % (Manual) 0 % (0-3) Basophils % (Manual) 0 % (0-2) Band Neutrophils 0 % (0-8) Platelet Estimate Adequate Platelet Morphology Normal Hypochromasia 1+ Anisocytosis 1+ Macrocytosis 1+ Sodium Level 151 MMOL/L (136-145) H Potassium Level 3.5 MMOL/L (3.5-5.1) Chloride Level 119 MMOL/L (98-107) H Carbon Dioxide Level 27 MMOL/L (21-32) Anion Gap 5 mmol/L (5-15) Blood Urea Nitrogen 41 mg/dL (7-18) H Creatinine 1.0 MG/DL (0.55-1.30) Estimat Glomerular Filtration Rate 56.9 mL/min (>60) Glucose Level 143 MG/DL (74-106) H Calcium Level 7.5 MG/DL (8.5-10.1) L Phosphorus Level 3.0 MG/DL (2.5-4.9) Magnesium Level 2.0 MG/DL (1.8-2.4) Total Bilirubin 0.4 MG/DL (0.2-1.0) Aspartate Amino Transf (AST/SGOT) 60 U/L (15-37) H Alanine Aminotransferase (ALT/SGPT) 155 U/L (12-78) H Alkaline Phosphatase 63 U/L (46-116) Total Protein 4.7 G/DL (6.4-8.2) L Albumin 1.2 G/DL (3.4-5.0) L Globulin 3.5 g/dL Albumin/Globulin Ratio 0.3 (1.0-2.7) L Arterial Blood pH 7.483 (7.350-7.450) Arterial Blood Partial Pressure CO2 30.1 mmHg (35.0-45.0) L Arterial Blood Partial Pressure O2 63.4 mmHg (75.0-100.0) L Arterial Blood HCO3 22.1 mmol/L (22.0-26.0) Arterial Blood Oxygen Saturation 91.9 % (95-100) L Arterial Blood Base Excess -0.8 (-2-2) Jonathan Test Positive Microbiology Date/Time Source Procedure Growth Status 06/16/20 13:11 Blood Blood Culture - Preliminary NO GROWTH AFTER 24 HOURS Resulted Intake and Output 06/17/20 06/18/20 19:00 07:00 Intake Total 1175 ml 1314 ml Output Total 680 ml 670 ml Balance 495 ml 644 ml Free Water 130 ml 150 ml IV Total 555 ml 334 ml Tube Feeding 490 ml 770 ml Other 60 ml Output Urine Total 680 ml 670 ml # Bowel Movements 2 4 Objective General Appearance: WD/WN, no apparent distress, alert EENT: PERRL/EOMI, normal ENT inspection Neck: non-tender, normal alignment, supple, normal inspection Cardiovascular: normal peripheral pulses, normal rate, regular rhythm, no gallop/murmur, no JVD Respiratory/Chest: Mech vent; decreased breath sounds, crackles/rales, rhonchi - bilaterally, expiratory wheezing Abdomen: normal bowel sounds, non tender, soft, no organomegaly, no mass Extremities: normal range of motion Neurologic: [employer] demonstr[employer] II-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 Continue daptomycin per ID=Dr Camejo. Pulmonary/Critical care=DR Allred. COVID NEG (2) Sepsis Assessment & Plan: Staph haemolyticus. Continue amikacin and meropenem per ID= Dr Camejo (3) Down's syndrome (4) Dysphagia Assessment & Plan: S/P PEG (5) Seizure disorder Assessment & Plan: Continue keppra and depakote (6) Hypothyroidism Assessment & Plan: Continue synthroid (7) Acute respiratory failure Assessment & Plan: Pulmonary = Dr Allred; [facility] Joni Copeland MD Jun 18, 2020 19:04
--- NOTE | 2020-06-18 19:08 | NUR ---
RESPIRATORY NOTE: Received pt on AC 26, 500VT, 95%, PEEP +10. Pt intubated w/ ETT 7.5 @ 22cm lipline, secured by anchorfast. Pt is awake/disoriented, responds to stimuli. B/S sissy. rhonchi, sxn small amounts of thin/frothy, pale-yellow secretions. Vent plugged into red outlet, [place] at bedside. Pt resting comfortably, in no apparent distress at this time. Will continue to monitor pt.
--- NOTE | 2020-06-18 19:25 | NUR ---
NURSE HAND-OFF REPORT: Latest Vital Signs: Temperature 98.9 , Pulse 63 , B/P 108 /58 , Respiratory Rate 26 , O2 SAT 92 , Mechanical Ventilator, O2 Flow Rate 15.0 . Vital Sign Comment: stable EKG Rhythm: Sinus Bradycardia Rhythm change?: N MD Notified?: - MD Response: Latest Osorio Fall Score: 50 Fall Risk: High Risk Safety Measures: Call light Within Reach, Bed Alarm Zone 3, Side Rails Side Rails x2, Bed position Low and Locked. Fall Precautions: Yellow Socks Yellow Gown Door Sign Patient Fall Education Report given to .Shavonne Billings RN.
--- NOTE | 2020-06-18 19:27 | Cardiology Progress Note ---
Assessment/Plan Assessment/Plan sepsis respiratory failure ards renal insuf bacteremia abn cardiac enzyme due to demand sinus rafael stable thrombocytopenia resolved hypernatremia covid isolation removed as covid -x3 min trop abn ekg last one form 05/30 reviewed non ischemic echo preformed 06/02 nl lv function now off pressor vent support abx tele personally reviewed no pauses wbc improved but still up as ofn 06/18 na increased still renal insuf min better 3rd spacing alot cxr form 06/18 reviewed tsh seems fine sig edema with hypernatremia need nauteresis eventually when bp is better Subjective ROS Limited/Unobtainable: Yes Subjective on a vent not communicative Objective Last 24 Hour Vital Signs Date Time Temp Pulse Resp B/P (MAP) Pulse Ox O2 Delivery O2 Flow Rate FiO2 06/18/20 19:05 63 26 95 06/18/20 18:05 57 26 119/47 (71) 94 06/18/20 17:00 65 26 106/45 (65) 97 06/18/20 17:00 Mechanical Ventilator Mechanical Ventilator 06/18/20 16:00 98.9 68 26 118/67 (84) 93 06/18/20 16:00 66 06/18/20 16:00 Mechanical Ventilator Mechanical Ventilator 06/18/20 16:00 95 06/18/20 15:20 69 26 95 06/18/20 15:00 67 28 122/62 (82) 91 06/18/20 14:00 60 26 98/55 (69) 91 06/18/20 13:00 56 25 98/55 (69) 90 06/18/20 12:04 Mechanical Ventilator Mechanical Ventilator 06/18/20 12:00 57 06/18/20 12:00 98.9 66 26 96/59 (71) 92 06/18/20 12:00 95 06/18/20 11:00 68 25 113/66 (82) 92 06/18/20 10:50 60 26 95 06/18/20 10:00 65 25 101/58 (72) 90 06/18/20 09:00 66 26 113/67 (82) 94 06/18/20 08:00 65 06/18/20 08:00 Mechanical Ventilator Mechanical Ventilator 06/18/20 08:00 95 06/18/20 08:00 98.5 64 25 107/61 (76) 94 06/18/20 07:00 69 25 107/72 (84) 94 06/18/20 06:50 66 27 95 06/18/20 06:00 62 25 95/72 (80) 91 06/18/20 05:00 68 23 98/51 (67) 92 06/18/20 04:00 Mechanical Ventilator Mechanical Ventilator 06/18/20 04:00 95 06/18/20 04:00 98.0 67 25 101/52 (68) 91 06/18/20 03:42 66 06/18/20 03:17 61 26 95 06/18/20 03:00 52 24 127/62 (83) 93 06/18/20 02:00 47 26 116/61 (79) 90 06/18/20 01:00 48 26 110/66 (81) 93 06/18/20 00:00 68 06/18/20 00:00 95 06/18/20 00:00 75 25 117/57 (77) 93 06/18/20 00:00 Mechanical Ventilator Mechanical Ventilator 06/17/20 23:05 58 26 95 06/17/20 23:00 59 26 114/49 (70) 94 06/17/20 22:00 64 26 93/50 (64) 93 06/17/20 21:00 58 26 98/53 (68) 92 06/17/20 20:00 Mechanical Ventilator Mechanical Ventilator 06/17/20 20:00 98.9 62 26 107/50 (69) 91 06/17/20 20:00 60 06/17/20 20:00 95 06/17/20 19:30 62 26 95 General Appearance: no apparent distress, on vent, patient on isolation, isolation precautions Neck: supple Cardiovascular: normal rate Respiratory/Chest: lungs clear Abdomen: normal bowel sounds, non tender, soft Extremities: moderate edema Intake and Output 06/17/20 06/18/20 19:00 07:00 Intake Total 1175 ml 1314 ml Output Total 680 ml 670 ml Balance 495 ml 644 ml Free Water 130 ml 150 ml IV Total 555 ml 334 ml Tube Feeding 490 ml 770 ml Other 60 ml Output Urine Total 680 ml 670 ml # Bowel Movements 2 4 Laboratory Tests Test 06/18/20 04:30 06/18/20 08:30 White Blood Count 20.4 K/UL (4.8-10.8) H Red Blood Count 2.79 M/UL (4.20-5.40) L Hemoglobin 9.1 G/DL (12.0-16.0) L Hematocrit 27.0 % (37.0-47.0) L Mean Corpuscular Volume 97 FL (80-99) Mean Corpuscular Hemoglobin 32.6 PG (27.0-31.0) H Mean Corpuscular Hemoglobin Concent 33.7 G/DL (32.0-36.0) Red Cell Distribution Width 14.8 % (11.6-14.8) Platelet Count 161 K/UL (150-450) Mean Platelet Volume 9.1 FL (6.5-10.1) Neutrophils (%) (Auto) % (45.0-75.0) Lymphocytes (%) (Auto) % (20.0-45.0) Monocytes (%) (Auto) % (1.0-10.0) Eosinophils (%) (Auto) % (0.0-3.0) Basophils (%) (Auto) % (0.0-2.0) Differential Total Cells Counted 100 Neutrophils % (Manual) 93 % (45-75) H Lymphocytes % (Manual) 5 % (20-45) L Monocytes % (Manual) 2 % (1-10) Eosinophils % (Manual) 0 % (0-3) Basophils % (Manual) 0 % (0-2) Band Neutrophils 0 % (0-8) Platelet Estimate Adequate Platelet Morphology Normal Hypochromasia 1+ Anisocytosis 1+ Macrocytosis 1+ Sodium Level 151 MMOL/L (136-145) H Potassium Level 3.5 MMOL/L (3.5-5.1) Chloride Level 119 MMOL/L (98-107) H Carbon Dioxide Level 27 MMOL/L (21-32) Anion Gap 5 mmol/L (5-15) Blood Urea Nitrogen 41 mg/dL (7-18) H Creatinine 1.0 MG/DL (0.55-1.30) Estimat Glomerular Filtration Rate 56.9 mL/min (>60) Glucose Level 143 MG/DL (74-106) H Calcium Level 7.5 MG/DL (8.5-10.1) L Phosphorus Level 3.0 MG/DL (2.5-4.9) Magnesium Level 2.0 MG/DL (1.8-2.4) Total Bilirubin 0.4 MG/DL (0.2-1.0) Aspartate Amino Transf (AST/SGOT) 60 U/L (15-37) H Alanine Aminotransferase (ALT/SGPT) 155 U/L (12-78) H Alkaline Phosphatase 63 U/L (46-116) Total Protein 4.7 G/DL (6.4-8.2) L Albumin 1.2 G/DL (3.4-5.0) L Globulin 3.5 g/dL Albumin/Globulin Ratio 0.3 (1.0-2.7) L Arterial Blood pH 7.483 (7.350-7.450) Arterial Blood Partial Pressure CO2 30.1 mmHg (35.0-45.0) L Arterial Blood Partial Pressure O2 63.4 mmHg (75.0-100.0) L Arterial Blood HCO3 22.1 mmol/L (22.0-26.0) Arterial Blood Oxygen Saturation 91.9 % (95-100) L Arterial Blood Base Excess -0.8 (-2-2) Jonathan Test Positive Microbiology Date/Time Source Procedure Growth Status 06/16/20 13:11 Blood Blood Culture - Preliminary NO GROWTH AFTER 24 HOURS Resulted Josue Pantoja MD Jun 18, 2020 19:27
[2020-06-18] MEDS: Dyna-Hex 2% Top Sol 2oz TOPIC SCH (20:45)
--- NOTE | 2020-06-18 23:30 | NUR ---
NURSE NOTES: patient in bed sleeping comfortably. no s/s of acute distress noted. HOB elevated. Gt intact no residual. seizure precaution and contact isolation maintained and observed. frequent visual checks continued
[2020-06-19] VITALS (24 sets, daily range): BP systolic 92–125; BP diastolic 48–86
--- NOTE | 2020-06-19 01:30 | NUR ---
NURSE NOTES: Bed bath given tolerated well.
--- NOTE | 2020-06-19 03:30 | NUR ---
NURSE NOTES: Patient in bed sleeping comfortable, no s/s of acute distress noted. No fever. Orally intubated Fi02 90%O2 Sat 94% on the monitor. HOB elevated.G-tube intact, clean and running Vital AF 1.2 at 60ml/hr. Gregorio intact and draining with yellow color urine. Left upper arm PICC intact, clean and running TKO. Kept dry, clean, comfortable and HOB>30. Call light placed in easy reach. Bed in lowest position and locked. Seizure precaution and contact isolation maintained and observed.SCD on bilateral legs. Will continue plan of care.
[2020-06-19] MEDS: Meropenem 1 GM in NS 55 ML IVPB SCH ×3 (04:28→19:58)
[2020-06-19 05:14] LABS: HEMATOCRIT 25.4 % (37.0-47.0); HEMOGLOBIN 8.5 G/DL (12.0-16.0); MEAN CORPUSCULAR VOLUME 96 FL (80-99); PLATELET COUNT 161 K/UL (150-450); RED BLOOD COUNT 2.64 M/UL (4.20-5.40); RED CELL DISTRIBUTION WIDTH 14.7 % (11.6-14.8); WHITE BLOOD COUNT 19.2 K/UL (4.8-10.8)
--- NOTE | 2020-06-19 05:30 | NUR ---
NURSE NOTES: patient in bed awake, Repositioned patient in bed. TV therapy provided. no s/s of acute distress noted. HOB elevated. Gt intact no residual. seizure precaution and contact isolation maintained and observed. frequent visual checks continued. no s/s of hypo/hyperglycemia. SR on cardiac rn HR 67. will continue plan of care.
[2020-06-19] MEDS: Midodrine 10mg tab GT SCH ×3 (05:33→21:38)
[2020-06-19] MEDS: Valproic Acid 250mg/5ml Liquid GT SCH ×3 (05:33→21:38)
[2020-06-19 05:36] LABS: ANION GAP 8 mmol/L (5-15); BLOOD UREA NITROGEN 38 mg/dL (7-18); CALCIUM 7.7 MG/DL (8.5-10.1); CARBON DIOXIDE 27 MMOL/L (21-32); CHLORIDE 117 MMOL/L (98-107); CREATININE 0.9 MG/DL (0.55-1.30); POTASSIUM 3.1 MMOL/L (3.5-5.1); SODIUM 152 MMOL/L (136-145)
[2020-06-19] MEDS: Hydrocortisone 100mg Inj IV SCH ×3 (05:37→21:38)
--- NOTE | 2020-06-19 07:10 | NUR ---
HAND-OFF: Report given to Fredrick LUJAN.
--- NOTE | 2020-06-19 07:15 | NUR ---
NURSE NOTES: Report received from Shavonne Billings RN.Pt asleep noted no resp distress,orally intubated,connected to vent,ETT 7.5 lip line 22cm,AC 26,TV 500,Fio2 95%,PEEP 5,no signs of pain or discomfort,S-R on the monitor,GTF Vital AF 1.2 at 60 ml/hr,with 30 ml residual,Gregorio cath draining yellow urine,skin warm,dry and edematous, SCD's to bilat lower extremities,IV site to JODY PICC line intact,SR up x2 HOB elevated ,bed lock in lowest position,will continue with plans of care.
[2020-06-19] MEDS: Norepinephrine Bitartrate 16 MG in D5W 500ml 484 ML IV SCH (07:45)
[2020-06-19] MEDS: Pantoprazole Inj IV SCH (08:26)
--- NOTE | 2020-06-19 09:00 | NUR ---
NURSE NOTES: Oral /ETT secretions suctioned PRN,oral care done,repositioned to keep RT side up.
--- NOTE | 2020-06-19 10:01 | General Progress Note ---
Assessment/Plan Assessment/Plan: 1. History of Down syndrome. 2. Dysphagia with G-tube. 3. Seizure disorder. 4. Hypothyroidism. 5. LEANN. 6. Pneumonia. 7. Sepsis. fu H&H ppi GTF hold GI procedures for now Subjective ROS Limited/Unobtainable: No Allergies: Coded Allergies: No Known Allergies (Unverified , 10/16/18) Objective Last 24 Hour Vital Signs Date Time Temp Pulse Resp B/P (MAP) Pulse Ox O2 Delivery O2 Flow Rate FiO2 06/19/20 09:00 98.0 57 17 104/58 (73) 99 06/19/20 08:05 95 06/19/20 08:00 Mechanical Ventilator Mechanical Ventilator 06/19/20 08:00 98.9 85 25 107/64 (78) 100 06/19/20 08:00 63 06/19/20 07:45 104/58 06/19/20 07:15 55 26 95 06/19/20 07:00 61 24 114/58 (76) 98 06/19/20 06:00 65 23 108/58 (75) 97 06/19/20 05:00 68 17 112/57 (75) 96 06/19/20 04:00 98.9 64 20 97/55 (69) 97 06/19/20 04:00 Mechanical Ventilator Mechanical Ventilator 06/19/20 04:00 95 06/19/20 03:55 63 06/19/20 03:00 71 23 114/53 (73) 95 06/19/20 02:59 74 26 95 06/19/20 02:00 73 25 103/66 (78) 96 06/19/20 01:00 76 25 98/73 (81) 97 06/19/20 00:00 73 24 113/55 (74) 96 06/19/20 00:00 Mechanical Ventilator Mechanical Ventilator 06/19/20 00:00 95 06/19/20 00:00 66 06/18/20 23:00 69 24 115/52 (73) 97 06/18/20 22:56 68 26 95 06/18/20 22:00 72 24 114/60 (78) 97 06/18/20 21:00 66 24 105/58 (74) 94 06/18/20 20:00 Mechanical Ventilator Mechanical Ventilator 06/18/20 20:00 98.9 59 25 115/56 (75) 92 06/18/20 20:00 71 06/18/20 20:00 95 06/18/20 19:05 63 26 95 06/18/20 19:00 58 26 108/58 (75) 92 06/18/20 18:05 57 26 119/47 (71) 94 06/18/20 17:00 65 26 106/45 (65) 97 06/18/20 17:00 Mechanical Ventilator Mechanical Ventilator 06/18/20 16:00 98.9 68 26 118/67 (84) 93 06/18/20 16:00 66 06/18/20 16:00 Mechanical Ventilator Mechanical Ventilator 06/18/20 16:00 95 06/18/20 15:20 69 26 95 06/18/20 15:00 67 28 122/62 (82) 91 06/18/20 14:00 60 26 98/55 (69) 91 06/18/20 13:00 56 25 98/55 (69) 90 06/18/20 12:04 Mechanical Ventilator Mechanical Ventilator 06/18/20 12:00 57 06/18/20 12:00 98.9 66 26 96/59 (71) 92 06/18/20 12:00 95 06/18/20 11:00 68 25 113/66 (82) 92 06/18/20 10:50 60 26 95 Intake and Output 06/18/20 06/19/20 19:00 07:00 Intake Total 1000 ml 1160 ml Output Total 710 ml 880 ml Balance 290 ml 280 ml Free Water 100 ml 100 ml IV Total 220 ml Tube Feeding 720 ml 720 ml Other 180 ml 120 ml Output Urine Total 710 ml 880 ml # Bowel Movements 2 5 Laboratory Tests 06/19/20 04:25: White Blood Count 19.2H, Red Blood Count 2.64L, Hemoglobin 8.5L, Hematocrit 25.4L, Mean Corpuscular Volume 96, Mean Corpuscular Hemoglobin 32.4H, Mean Corpuscular Hemoglobin Concent 33.6, Red Cell Distribution Width 14.7, Platelet Count 161, Mean Platelet Volume 8.7, Neutrophils (%) (Auto) , Lymphocytes (%) ( Auto) , Monocytes (%) (Auto) , Eosinophils (%) (Auto) , Basophils (%) (Auto) , Neutrophils % (Manual) [Pending], Lymphocytes % (Manual) [Pending], Platelet Estimate [Pending], Platelet Morphology [Pending], Sodium Level 152H, Potassium Level 3.1L, Chloride Level 117H, Carbon Dioxide Level 27, Anion Gap 8, Blood Urea Nitrogen 38H, Creatinine 0.9, Estimat Glomerular Filtration Rate > 60, Glucose Level 177H, Calcium Level 7.7L Height (Feet): 5 Height (Inches): 3.00 Weight (Pounds): 172 General Appearance: no apparent distress EENT: normal ENT inspection Neck: supple Cardiovascular: normal rate Respiratory/Chest: decreased breath sounds Abdomen: normal bowel sounds, non tender, soft Extremities: non-tender Nehemiah Perez MD Jun 19, 2020 10:01
--- NOTE | 2020-06-19 10:45 | NUR ---
NURSE NOTES: Dr Allred at bedside,updated re pt's status.
[2020-06-19] MEDS: DOPamine 400mg/250ml 250 ML IV SCH (11:15)
--- NOTE | 2020-06-19 11:19 | Pulmonolgy Critical Care Note ---
Critical Care - Asmt/Plan Problems: (1) Acute respiratory failure (2) Bacteremia (3) Pneumonia (4) Sepsis (5) HCAP (healthcare-associated pneumonia) (6) Seizure disorder (7) Down's syndrome Respiratory: monitor respiratory rate, adjust FIO2, CXR Cardiac: continue pressors, continue to monitor HR/BP Renal: F/U I&O, keep IV fluid, check electrolytes Infectious Disease: check cultures Gastrointestinal: continue feedings/current rate Endocrine: monitor blood sugar, continue sliding scale insulin Hematologic: monitor H/H, transfuse if hgb<8.5 Neurologic: keep patient comfortable Affect: PRN ativan Notes Reviewed: stable manager, cardio, 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 with: nurses, consultants, case specialistmanager clinical informatics - Objective Last 24 Hour Vital Signs Date Time Temp Pulse Resp B/P (MAP) Pulse Ox O2 Delivery O2 Flow Rate FiO2 06/19/20 11:00 65 26 99/48 (65) 98 06/19/20 10:00 59 23 114/57 (76) 98 06/19/20 09:00 98.0 57 17 104/58 (73) 99 06/19/20 08:05 95 06/19/20 08:00 Mechanical Ventilator Mechanical Ventilator 06/19/20 08:00 98.9 85 25 107/64 (78) 100 06/19/20 08:00 63 06/19/20 07:45 104/58 06/19/20 07:15 55 26 95 06/19/20 07:00 61 24 114/58 (76) 98 06/19/20 06:00 65 23 108/58 (75) 97 06/19/20 05:00 68 17 112/57 (75) 96 06/19/20 04:00 98.9 64 20 97/55 (69) 97 06/19/20 04:00 Mechanical Ventilator Mechanical Ventilator 06/19/20 04:00 95 06/19/20 03:55 63 06/19/20 03:00 71 23 114/53 (73) 95 06/19/20 02:59 74 26 95 06/19/20 02:00 73 25 103/66 (78) 96 06/19/20 01:00 76 25 98/73 (81) 97 06/19/20 00:00 73 24 113/55 (74) 96 06/19/20 00:00 Mechanical Ventilator Mechanical Ventilator 06/19/20 00:00 95 06/19/20 00:00 66 06/18/20 23:00 69 24 115/52 (73) 97 06/18/20 22:56 68 26 95 06/18/20 22:00 72 24 114/60 (78) 97 06/18/20 21:00 66 24 105/58 (74) 94 06/18/20 20:00 Mechanical Ventilator Mechanical Ventilator 06/18/20 20:00 98.9 59 25 115/56 (75) 92 06/18/20 20:00 71 06/18/20 20:00 95 06/18/20 19:05 63 26 95 06/18/20 19:00 58 26 108/58 (75) 92 06/18/20 18:05 57 26 119/47 (71) 94 06/18/20 17:00 65 26 106/45 (65) 97 06/18/20 17:00 Mechanical Ventilator Mechanical Ventilator 06/18/20 16:00 98.9 68 26 118/67 (84) 93 06/18/20 16:00 66 06/18/20 16:00 Mechanical Ventilator Mechanical Ventilator 06/18/20 16:00 95 06/18/20 15:20 69 26 95 06/18/20 15:00 67 28 122/62 (82) 91 06/18/20 14:00 60 26 98/55 (69) 91 06/18/20 13:00 56 25 98/55 (69) 90 06/18/20 12:04 Mechanical Ventilator Mechanical Ventilator 06/18/20 12:00 57 06/18/20 12:00 98.9 66 26 96/59 (71) 92 06/18/20 12:00 95 Status: sedated Condition: critical HEENT: atraumatic, normocephalic Lungs: chest wall tender Heart: HR/BP unstable Abdomen: soft, non-tender Micro: Microbiology Date/Time Source Procedure Growth Status 06/16/20 13:11 Blood Blood Culture - Preliminary NO GROWTH AFTER 48 HOURS Resulted Accucheck: 131 Critical Care - Subjective ROS Limited/Unobtainable: Yes Condition: critical EKG Rhythm: Sinus Rhythm FI02: 95 Vent Support Breath Rate: 26 Vent Support Mode: AC Vent Tidal Volume: 500 Sputum Amount: Moderate PEEP: 10.0 PIP: 44 Tube Feeding Amount: 60 I&O: Intake and Output 06/18/20 06/19/20 19:00 07:00 Intake Total 1000 ml 1160 ml Output Total 710 ml 880 ml Balance 290 ml 280 ml Free Water 100 ml 100 ml IV Total 220 ml Tube Feeding 720 ml 720 ml Other 180 ml 120 ml Output Urine Total 710 ml 880 ml # Bowel Movements 2 5 ET-Tube: 7.5 ET Position: 22 Labs: Laboratory Tests Test 06/19/20 04:25 06/19/20 10:55 White Blood Count 19.2 K/UL (4.8-10.8) H Red Blood Count 2.64 M/UL (4.20-5.40) L Hemoglobin 8.5 G/DL (12.0-16.0) L Hematocrit 25.4 % (37.0-47.0) L Mean Corpuscular Volume 96 FL (80-99) Mean Corpuscular Hemoglobin 32.4 PG (27.0-31.0) H Mean Corpuscular Hemoglobin Concent 33.6 G/DL (32.0-36.0) Red Cell Distribution Width 14.7 % (11.6-14.8) Platelet Count 161 K/UL (150-450) Mean Platelet Volume 8.7 FL (6.5-10.1) Neutrophils (%) (Auto) % (45.0-75.0) Lymphocytes (%) (Auto) % (20.0-45.0) Monocytes (%) (Auto) % (1.0-10.0) Eosinophils (%) (Auto) % (0.0-3.0) Basophils (%) (Auto) % (0.0-2.0) Differential Total Cells Counted 100 Neutrophils % (Manual) 89 % (45-75) H Lymphocytes % (Manual) 6 % (20-45) L Monocytes % (Manual) 5 % (1-10) Eosinophils % (Manual) 0 % (0-3) Basophils % (Manual) 0 % (0-2) Band Neutrophils 0 % (0-8) Platelet Estimate Adequate Platelet Morphology Normal Hypochromasia 2+ Anisocytosis 1+ Sodium Level 152 MMOL/L (136-145) H Potassium Level 3.1 MMOL/L (3.5-5.1) L Chloride Level 117 MMOL/L (98-107) H Carbon Dioxide Level 27 MMOL/L (21-32) Anion Gap 8 mmol/L (5-15) Blood Urea Nitrogen 38 mg/dL (7-18) H Creatinine 0.9 MG/DL (0.55-1.30) Estimat Glomerular Filtration Rate > 60 mL/min (>60) Glucose Level 177 MG/DL (74-106) H Calcium Level 7.7 MG/DL (8.5-10.1) L Aspergillus galactomannan Antigen Pending Beta-(1,3)-D-Glucan Pending Elayne Allred MD Jun 19, 2020 11:19
--- NOTE | 2020-06-19 11:29 | NUR ---
NURSE NOTES: Pt asleep noted no distress,pt's goes bradycardia HR 57/min and BP 98/48 when asleep.
--- NOTE | 2020-06-19 11:33 | Nephrology Progress Note ---
Assessment/Plan Problem List: (1) LEANN (acute kidney injury) (2) Respiratory failure requiring intubation (3) Down's syndrome (4) Seizure disorder (5) Hypothyroidism Assessment Acute renal failure, likely due to hypotension Acute respiratory distress, hypoxia Seizure disorder Hypothyroidism Down syndrome Full code Fluid challenge with IV fluids and albumin Midodrine for BP above 100 systolic Check TSH level Check Correct level Monitor renal parameters Urine studies Per orders Plan June 19: Lab reviewed. Electrolyte abnormalities addressed. Continue per pulmonary and ID. June 18: Lab reviewed. Status unchanged. Serum sodium 151 unchanged. Stable from renal standpoint of view. June 17: Labs reviewed. Status quo. D5W 500 cc IV ordered. Continue to monitor renal parameters. June 16: Status quo. Labs reviewed. Overall condition unchanged. Patient was transfused and hemoglobin higher. Continue current management. Patient remains full code. June 15: Status quo. Overall condition poor. Very low albumin. Edematous. Hypotensive. Hemoglobin lower. Anemia work-up ordered. I favor transfusion 2 units of packed RBCs. Patient remains full code. I favor supportive care only. Will discuss. June 14: Electrolyte abnormalities addressed. Serum creatinine lower. Continue per current management. June 13: Status unchanged. Lab reviewed. Serum potassium 2.7. IV potassium chloride ordered. Serum creatinine low at 1.6 stable. Blood pressure 90s systolic June 12: Status quo. Labs reviewed. Renal parameters stable. Serum creatinine down to 1.6. Medication list reviewed. Continues to be on midodrine. Continue per consultants. June 11: Status quo. Labs reviewed. Electrolytes adjusted. Serum creatinine down to 1.8. Continue per consultants. June 10: Status quo. Labs reviewed. Phosphorus supplement IV given. Serum creatinine 2. Continue per consultants. June 09: Requires less pressors. Albumin bolus given. 1 dose of Lasix IV ordered as the patient severely edematous. Patient serum albumin is very low. Continue per consultants. June 08: Continues to be intubated. Labs reviewed. Serum creatinine 1.9 unchanged. Blood pressure more stable. Off 1 of the pressors. Continue to monitor renal parameters. Continue per consultants. Patient now on hydrocortisone 100 mg every 8 hours. Will decrease IV fluid. Normal saline down to 50 cc an hour. June 07: Intubated. Labs reviewed. Creatinine 1.9 unchanged. Continue same treatment plan. Per consultants. Overall poor prognosis since the patient remains on pressors and her pulmonary status is worsening. June 06: Remains intubated. Labs reviewed. Creatinine 1.9. Blood pressure systolic 90s. Continue per consultants. June 05: Remains intubated. Labs reviewed. Serum creatinine lower to 2. Vancomycin level lower. Remains hypotensive on pressors. Will increase midodrine to 10 mg every 8 hours. Continue per consultants. Continue to monitor renal parameters. June 04: Patient now in ICU. Intubated. On pressors. Labs reviewed. Will increase midodrine. Aim to keep blood pressure over 100 systolic. Will give albumin bolus. Will check vancomycin level which was elevated when checked previously on June 01. Will monitor renal parameters. Continue per consultants. Subjective ROS Limited/Unobtainable: Yes Objective Objective Last 24 Hour Vital Signs Date Time Temp Pulse Resp B/P (MAP) Pulse Ox O2 Delivery O2 Flow Rate FiO2 06/19/20 11:00 65 26 99/48 (65) 98 06/19/20 10:00 59 23 114/57 (76) 98 06/19/20 09:00 98.0 57 17 104/58 (73) 99 06/19/20 08:05 95 06/19/20 08:00 Mechanical Ventilator Mechanical Ventilator 06/19/20 08:00 98.9 85 25 107/64 (78) 100 06/19/20 08:00 63 06/19/20 07:45 104/58 06/19/20 07:15 55 26 95 06/19/20 07:00 61 24 114/58 (76) 98 06/19/20 06:00 65 23 108/58 (75) 97 06/19/20 05:00 68 17 112/57 (75) 96 06/19/20 04:00 98.9 64 20 97/55 (69) 97 06/19/20 04:00 Mechanical Ventilator Mechanical Ventilator 06/19/20 04:00 95 06/19/20 03:55 63 06/19/20 03:00 71 23 114/53 (73) 95 06/19/20 02:59 74 26 95 06/19/20 02:00 73 25 103/66 (78) 96 06/19/20 01:00 76 25 98/73 (81) 97 06/19/20 00:00 73 24 113/55 (74) 96 06/19/20 00:00 Mechanical Ventilator Mechanical Ventilator 06/19/20 00:00 95 06/19/20 00:00 66 06/18/20 23:00 69 24 115/52 (73) 97 06/18/20 22:56 68 26 95 06/18/20 22:00 72 24 114/60 (78) 97 06/18/20 21:00 66 24 105/58 (74) 94 06/18/20 20:00 Mechanical Ventilator Mechanical Ventilator 06/18/20 20:00 98.9 59 25 115/56 (75) 92 06/18/20 20:00 71 06/18/20 20:00 95 06/18/20 19:05 63 26 95 06/18/20 19:00 58 26 108/58 (75) 92 06/18/20 18:05 57 26 119/47 (71) 94 06/18/20 17:00 65 26 106/45 (65) 97 06/18/20 17:00 Mechanical Ventilator Mechanical Ventilator 06/18/20 16:00 98.9 68 26 118/67 (84) 93 06/18/20 16:00 66 06/18/20 16:00 Mechanical Ventilator Mechanical Ventilator 06/18/20 16:00 95 06/18/20 15:20 69 26 95 06/18/20 15:00 67 28 122/62 (82) 91 06/18/20 14:00 60 26 98/55 (69) 91 06/18/20 13:00 56 25 98/55 (69) 90 06/18/20 12:04 Mechanical Ventilator Mechanical Ventilator 06/18/20 12:00 57 06/18/20 12:00 98.9 66 26 96/59 (71) 92 06/18/20 12:00 95 Intake and Output 06/18/20 06/19/20 19:00 07:00 Intake Total 1000 ml 1160 ml Output Total 710 ml 880 ml Balance 290 ml 280 ml Free Water 100 ml 100 ml IV Total 220 ml Tube Feeding 720 ml 720 ml Other 180 ml 120 ml Output Urine Total 710 ml 880 ml # Bowel Movements 2 5 Laboratory Tests 06/19/20 04:25: White Blood Count 19.2H, Red Blood Count 2.64L, Hemoglobin 8.5L, Hematocrit 25.4L, Mean Corpuscular Volume 96, Mean Corpuscular Hemoglobin 32.4H, Mean Corpuscular Hemoglobin Concent 33.6, Red Cell Distribution Width 14.7, Platelet Count 161, Mean Platelet Volume 8.7, Neutrophils (%) (Auto) , Lymphocytes (%) ( Auto) , Monocytes (%) (Auto) , Eosinophils (%) (Auto) , Basophils (%) (Auto) , Differential Total Cells Counted 100, Neutrophils % (Manual) 89H, Lymphocytes % (Manual) 6L, Monocytes % (Manual) 5, Eosinophils % (Manual) 0, Basophils % ( Manual) 0, Band Neutrophils 0, Platelet Estimate Adequate, Platelet Morphology Normal, Hypochromasia 2+, Anisocytosis 1+, Sodium Level 152H, Potassium Level 3.1L, Chloride Level 117H, Carbon Dioxide Level 27, Anion Gap 8, Blood Urea Nitrogen 38H, Creatinine 0.9, Estimat Glomerular Filtration Rate > 60, Glucose Level 177H, Calcium Level 7.7L 06/19/20 10:55: Aspergillus galactomannan Antigen [Pending], Beta-(1,3)-D-Glucan [Pending] Height (Feet): 5 Height (Inches): 3.00 Weight (Pounds): 172 General Appearance: no apparent distress EENT: other - Intubated on ventilator Cardiovascular: normal rate, other - Heart rate variable from 60-85 Respiratory/Chest: decreased breath sounds Keron Pitt MD Jun 19, 2020 11:33
--- NOTE | 2020-06-19 12:46 | Infectious Diseases Prog Note ---
Assessment/Plan ASSESSMENT: sp code blue 06/03 Septic Shock; SP Fever, recurrent Leukocytosis; recurrent; persistent -06/17 u/a no pyuria -06/16 Bcx NTD (Picc line) -06/14 Bcx NTD ucx Neg sp cx yeast (prelim) -06/03 u/a no pyuria Pneumonia.- COVID 19 neg x3 Acute hypoxic resp failure on VM> NRB 15l 100%; hypoxic on ABG> now VDRF 06/03 - Fio2 80% >100% 06/05> 60% 06/09 >80% 06/10 >95% 06/18 -06/13 CXR:Small bilateral pleural effusions with minor edema. Stable edema with mild worsening in the degree of pleural effusion on the right. -06/09 sp cx Neg 06/08 CXR: Extensive bilateral interstitial and airspace disease appears similar to the prior exam. Moderate to large bilateral pleural effusions appear unchanged. 06/05 CXR: Increasing left upper lobe dense consolidation and likely increasing bilateral pleural fluid. Persistent diffuse dense consolidation elsewhere -06/03 sp cx normal resp marie -06/02 CXR: Increased atelectasis of the right lung, since prior exam of 3 days earlier. New or increased right pleural effusion. Increased left basilar consolidation and/or pleural fluid -COVID Rapid PCR neg 05/31, 05/31, 06/03 -05/30 spc x Group G strep -05/30 CXR: Reduced lung volumes. Patchy bilateral predominantly interstitial pulmonary opacities. Could be from edema and/or pneumonia. There is a broader differential. -legionella ag urine, blasto ab, Histo ab, HIV ab screen, FRANCIS, ANCA neg Persistent, high grade bacteremia- -05/30 Bcx 4/4 sets S. haemolyticus; 05/31 Bcx 3/4 S/ epi; 06/04 Bcx 1.4 S. warnerri; 06/06 Bcx Neg -2d echo: no vegetaions seen ua/ wbc 10-15, nit neg, leuk +1; ucx Neg LEANN; -supratherapeutic vanco levels -Seizure disorder. - Hypothyroidism. - Down syndrome. History of PEG tube placement. [place] resident PLAN: -f/u repeat blood Cx sputum and Urine Cx Cont Meropenem#15(abx d #/) given resp decompensation Empiric Amikacin #4 pending repeat cultures 06/12/20 SP Daptomycin #11 9/ SP MIcafungin #7, Linezolid #5 06/05 SP Azithromycin #7/7 06/03 SP Ceftriaxone #2 06/02 SP IV Vancomycin #4, Zosyn #4 05/30 SP Cefepime x1, Flagyl x1 - Monitor CBC, BMP. .f/u Repeat cx - COVID neg x3 - Monitor chest x-ray. - Monitor the patient's clinical course and labs. Based on those, we will do further recommendation. -f/u Bcx from picc line, cdiff if diarrhea -f/u Fungitell, asp ag, flow cytometry -Once stable, CT chest/abd/pw/ given persistent leukocytosis Thank you, Dr. Allred, for allowing me to participate in the care of this patient. I will follow the patient with you at this hospitalization. Discussed with RN Subjective Allergies: Coded Allergies: No Known Allergies (Unverified , 10/16/18) afebrile >72hrs off pressors Fio2 95% wbc improving slightly bcx NTD Objective Last 24 Hour Vital Signs Date Time Temp Pulse Resp B/P (MAP) Pulse Ox O2 Delivery O2 Flow Rate FiO2 06/19/20 12:13 95 06/19/20 12:11 99.0 67 26 105/57 (73) 99 06/19/20 12:00 Mechanical Ventilator Mechanical Ventilator 06/19/20 12:00 60 06/19/20 11:00 65 26 99/48 (65) 98 06/19/20 10:54 55 26 95 06/19/20 10:00 59 23 114/57 (76) 98 06/19/20 09:00 98.0 57 17 104/58 (73) 99 06/19/20 08:05 95 06/19/20 08:00 Mechanical Ventilator Mechanical Ventilator 06/19/20 08:00 98.9 85 25 107/64 (78) 100 06/19/20 08:00 63 06/19/20 07:45 104/58 06/19/20 07:15 55 26 95 06/19/20 07:00 61 24 114/58 (76) 98 06/19/20 06:00 65 23 108/58 (75) 97 06/19/20 05:00 68 17 112/57 (75) 96 06/19/20 04:00 98.9 64 20 97/55 (69) 97 06/19/20 04:00 Mechanical Ventilator Mechanical Ventilator 06/19/20 04:00 95 06/19/20 03:55 63 06/19/20 03:00 71 23 114/53 (73) 95 06/19/20 02:59 74 26 95 06/19/20 02:00 73 25 103/66 (78) 96 06/19/20 01:00 76 25 98/73 (81) 97 06/19/20 00:00 73 24 113/55 (74) 96 06/19/20 00:00 Mechanical Ventilator Mechanical Ventilator 06/19/20 00:00 95 06/19/20 00:00 66 06/18/20 23:00 69 24 115/52 (73) 97 06/18/20 22:56 68 26 95 06/18/20 22:00 72 24 114/60 (78) 97 06/18/20 21:00 66 24 105/58 (74) 94 06/18/20 20:00 Mechanical Ventilator Mechanical Ventilator 06/18/20 20:00 98.9 59 25 115/56 (75) 92 06/18/20 20:00 71 06/18/20 20:00 95 06/18/20 19:05 63 26 95 06/18/20 19:00 58 26 108/58 (75) 92 06/18/20 18:05 57 26 119/47 (71) 94 06/18/20 17:00 65 26 106/45 (65) 97 06/18/20 17:00 Mechanical Ventilator Mechanical Ventilator 06/18/20 16:00 98.9 68 26 118/67 (84) 93 06/18/20 16:00 66 06/18/20 16:00 Mechanical Ventilator Mechanical Ventilator 06/18/20 16:00 95 06/18/20 15:20 69 26 95 06/18/20 15:00 67 28 122/62 (82) 91 06/18/20 14:00 60 26 98/55 (69) 91 06/18/20 13:00 56 25 98/55 (69) 90 Height (Feet): 5 Height (Inches): 3.00 Weight (Pounds): 172 HEENT: No pale conjunctivae. No icterus. ETT in place NECK: No lymphadenopathy. CHEST: Coarse breathing sounds. HEART: S1 and S2. ABDOMEN: Soft. PEG tube in place. EXTREMITIES: No cyanosis at this time . SKIN: no rash Microbiology Date/Time Source Procedure Growth Status 06/16/20 13:11 Blood Blood Culture - Preliminary NO GROWTH AFTER 48 HOURS Resulted Laboratory Tests Test 06/19/20 04:25 06/19/20 10:55 White Blood Count 19.2 K/UL (4.8-10.8) H Red Blood Count 2.64 M/UL (4.20-5.40) L Hemoglobin 8.5 G/DL (12.0-16.0) L Hematocrit 25.4 % (37.0-47.0) L Mean Corpuscular Volume 96 FL (80-99) Mean Corpuscular Hemoglobin 32.4 PG (27.0-31.0) H Mean Corpuscular Hemoglobin Concent 33.6 G/DL (32.0-36.0) Red Cell Distribution Width 14.7 % (11.6-14.8) Platelet Count 161 K/UL (150-450) Mean Platelet Volume 8.7 FL (6.5-10.1) Neutrophils (%) (Auto) % (45.0-75.0) Lymphocytes (%) (Auto) % (20.0-45.0) Monocytes (%) (Auto) % (1.0-10.0) Eosinophils (%) (Auto) % (0.0-3.0) Basophils (%) (Auto) % (0.0-2.0) Differential Total Cells Counted 100 Neutrophils % (Manual) 89 % (45-75) H Lymphocytes % (Manual) 6 % (20-45) L Monocytes % (Manual) 5 % (1-10) Eosinophils % (Manual) 0 % (0-3) Basophils % (Manual) 0 % (0-2) Band Neutrophils 0 % (0-8) Platelet Estimate Adequate Platelet Morphology Normal Hypochromasia 2+ Anisocytosis 1+ Sodium Level 152 MMOL/L (136-145) H Potassium Level 3.1 MMOL/L (3.5-5.1) L Chloride Level 117 MMOL/L (98-107) H Carbon Dioxide Level 27 MMOL/L (21-32) Anion Gap 8 mmol/L (5-15) Blood Urea Nitrogen 38 mg/dL (7-18) H Creatinine 0.9 MG/DL (0.55-1.30) Estimat Glomerular Filtration Rate > 60 mL/min (>60) Glucose Level 177 MG/DL (74-106) H Calcium Level 7.7 MG/DL (8.5-10.1) L Aspergillus galactomannan Antigen Pending Beta-(1,3)-D-Glucan Pending Current Medications Medications (Trade) Dose Ordered Sig/Katy Route PRN Reason Start Time Stop Time Status Last Admin Dose Admin Acetaminophen (Tylenol) 650 mg Q4H PRN GT FEVER 06/03/20 11:45 07/03/20 11:44 06/15/20 03:17 Amikacin Protocol (Amikacin pharmacy to dose) 1 ea DAILY PRN MISC Per rx protocol 06/16/20 12:00 07/16/20 11:59 Amikacin Sulfate 1000 mg/Sodium Chloride 114 ml @ 114 mls/hr Q36H IV 06/16/20 14:00 06/23/20 13:59 06/18/20 01:31 Chlorhexidine Gluconate (Alla-Hex 2%) 1 applic DAILY@1999 TOPIC 06/08/20 20:00 09/06/20 19:59 06/18/20 20:45 Clotrimazole (Lotrimin) 1 applic Q12HR TOPIC 06/07/20 13:00 09/05/20 12:59 06/19/20 08:27 Dextrose (Dextrose 50%) 25 ml Q30M PRN IV Hypoglycemia 06/03/20 11:30 08/28/20 11:29 Dextrose (Dextrose 50%) 50 ml Q30M PRN IV Hypoglycemia 06/03/20 11:30 08/28/20 11:29 Dopamine HCl/ Dextrose 250 ml @ 0 mls/hr Q24H IV 06/12/20 11:15 09/10/20 11:14 06/14/20 19:47 Hydrocortisone (Solu-CORTEF) 100 mg EVERY 8 HOURS IV 06/07/20 14:00 09/05/20 13:59 06/19/20 05:37 Levothyroxine Sodium (Synthroid) 75 mcg DAILY GT 06/04/20 09:00 06/30/20 08:59 06/19/20 08:26 Lorazepam (Ativan 2mg/ml 1ml) 2 mg Q2H PRN IV For Anxiety 06/12/20 17:30 06/19/20 17:29 06/12/20 17:37 Meropenem 1 gm/ Sodium Chloride 55 ml @ 110 mls/hr Q8H IVPB 06/14/20 12:00 06/24/20 23:59 06/19/20 12:10 Midodrine (Pro-Amatine) 10 mg Q8HR GT 06/05/20 14:00 09/03/20 13:59 06/19/20 05:33 Norepinephrine Bitartrate 16 mg/ Dextrose 500 ml @ 0 mls/hr Q24H IV 06/08/20 07:45 07/07/20 12:59 06/12/20 08:43 Ondansetron HCl (Zofran) 4 mg Q6H PRN IVP Nausea & Vomiting 06/03/20 12:00 06/29/20 11:59 Pantoprazole (Protonix) 40 mg DAILY IV 06/04/20 09:00 06/30/20 08:59 06/19/20 08:26 Phenylephrine HCl 50 mg/Dextrose 250 ml @ 0 mls/hr Q24H PRN IV For hypotension 06/06/20 17:45 07/06/20 17:44 06/08/20 01:49 Polyethylene Glycol (Miralax) 17 gm DAILYPRN PRN GT Constipation 06/03/20 12:00 06/29/20 11:59 Valproic Acid (Depakene) 500 mg EVERY 8 HOURS GT 06/03/20 14:00 06/29/20 21:59 06/19/20 05:33 Suki Camejo M.D. Jun 19, 2020 12:46
--- NOTE | 2020-06-19 14:00 | NUR ---
NURSE NOTES: Patient asleep with no sign of distress noted. On GT feed and tolerating well. Will continue to monitor.
[2020-06-19] MEDS: Amikacin 1,000 MG in NS 110 ML IV SCH (15:23)
--- NOTE | 2020-06-19 16:00 | NUR ---
NURSE NOTES: Patient awake and maintains eye contact. No apparent signs or symptoms of distress of pain noted. Tolerating GT feed well. GT patent and flushing well. Will continue with current plan of care.
--- NOTE | 2020-06-19 16:40 | NUR ---
CASE MANAGEMENT: REVIEW 06/19/2020 SI:SEPSIS. PNA. VS: T 99 HR 65 RR 26 B/P 119/60 SATS 99% ON MECH VENT FIO2 95 LABS: WBC 19.2 NA 152 K 3.1 CL 117 BUN 38 GLU 177 CA 7.7 IS:DEPAKENE GT Q8H SOLU CORTEF IV Q8H PROTONIX IV QD LEVOPHED IV PER PARAMETERS DOPAMINE IV PER PARAMETERS AMIKACIN IV Q36H MEROPENEM IV Q8H ICU PLAN OF CARE: Fluid challenge with IV fluids and albumin fu H&H ppi GTF
--- NOTE | 2020-06-19 18:00 | NUR ---
NURSE NOTES: Patient asleep, and resting. Noted with soft BM. Gregorio catheter patent and flushing well, noted with clear yellow urine. Perineal care provided. Kept clean and dry at all times. will continue to monitor.
--- NOTE | 2020-06-19 18:43 | Cardiology Progress Note ---
Assessment/Plan Assessment/Plan sepsis respiratory failure ards renal insuf bacteremia abn cardiac enzyme due to demand sinus rafael stable thrombocytopenia resolved hypernatremia covid isolation removed as covid -x3 min trop abn ekg last one form 05/30 reviewed non ischemic echo preformed 06/02 nl lv function now off pressor bp borderline again vent support abx tele personally reviewed no pauses wbc improved but still up as ofn 06/18 na increased still renal insuf min better 3rd spacing alot cxr form 06/18 reviewed tsh seems fine sig edema with hypernatremia need nauteresis eventually when bp is better Subjective Subjective on a vent not communicative Objective Last 24 Hour Vital Signs Date Time Temp Pulse Resp B/P (MAP) Pulse Ox O2 Delivery O2 Flow Rate FiO2 06/19/20 18:00 57 26 96/53 (67) 96 06/19/20 17:00 66 26 109/55 (73) 99 06/19/20 16:10 95 06/19/20 16:06 99.0 65 26 119/60 (79) 99 06/19/20 16:00 65 06/19/20 16:00 Mechanical Ventilator Mechanical Ventilator 06/19/20 15:41 62 26 95 06/19/20 15:00 68 21 93/55 (68) 99 06/19/20 14:00 64 23 103/52 (69) 99 06/19/20 13:00 99.0 61 26 99/86 (90) 99 06/19/20 12:13 95 06/19/20 12:11 99.0 67 26 105/57 (73) 99 06/19/20 12:00 Mechanical Ventilator Mechanical Ventilator 06/19/20 12:00 60 06/19/20 11:00 65 26 99/48 (65) 98 06/19/20 10:54 55 26 95 06/19/20 10:00 59 23 114/57 (76) 98 06/19/20 09:00 98.0 57 17 104/58 (73) 99 06/19/20 08:05 95 06/19/20 08:00 Mechanical Ventilator Mechanical Ventilator 06/19/20 08:00 98.9 85 25 107/64 (78) 100 06/19/20 08:00 63 06/19/20 07:45 104/58 06/19/20 07:15 55 26 95 06/19/20 07:00 61 24 114/58 (76) 98 06/19/20 06:00 65 23 108/58 (75) 97 06/19/20 05:00 68 17 112/57 (75) 96 06/19/20 04:00 98.9 64 20 97/55 (69) 97 06/19/20 04:00 Mechanical Ventilator Mechanical Ventilator 06/19/20 04:00 95 06/19/20 03:55 63 06/19/20 03:00 71 23 114/53 (73) 95 06/19/20 02:59 74 26 95 06/19/20 02:00 73 25 103/66 (78) 96 06/19/20 01:00 76 25 98/73 (81) 97 06/19/20 00:00 73 24 113/55 (74) 96 06/19/20 00:00 Mechanical Ventilator Mechanical Ventilator 06/19/20 00:00 95 06/19/20 00:00 66 06/18/20 23:00 69 24 115/52 (73) 97 06/18/20 22:56 68 26 95 06/18/20 22:00 72 24 114/60 (78) 97 06/18/20 21:00 66 24 105/58 (74) 94 06/18/20 20:00 Mechanical Ventilator Mechanical Ventilator 06/18/20 20:00 98.9 59 25 115/56 (75) 92 06/18/20 20:00 71 06/18/20 20:00 95 06/18/20 19:05 63 26 95 06/18/20 19:00 58 26 108/58 (75) 92 General Appearance: no apparent distress, on vent, patient on isolation, isolation precautions Neck: supple Cardiovascular: normal rate Respiratory/Chest: rhonchi - bilaterally Abdomen: normal bowel sounds, non tender, soft Extremities: moderate edema Intake and Output 06/18/20 06/19/20 19:00 07:00 Intake Total 1000 ml 1160 ml Output Total 710 ml 880 ml Balance 290 ml 280 ml Free Water 100 ml 100 ml IV Total 220 ml Tube Feeding 720 ml 720 ml Other 180 ml 120 ml Output Urine Total 710 ml 880 ml # Bowel Movements 2 5 Laboratory Tests Test 06/19/20 04:25 06/19/20 10:55 White Blood Count 19.2 K/UL (4.8-10.8) H Red Blood Count 2.64 M/UL (4.20-5.40) L Hemoglobin 8.5 G/DL (12.0-16.0) L Hematocrit 25.4 % (37.0-47.0) L Mean Corpuscular Volume 96 FL (80-99) Mean Corpuscular Hemoglobin 32.4 PG (27.0-31.0) H Mean Corpuscular Hemoglobin Concent 33.6 G/DL (32.0-36.0) Red Cell Distribution Width 14.7 % (11.6-14.8) Platelet Count 161 K/UL (150-450) Mean Platelet Volume 8.7 FL (6.5-10.1) Neutrophils (%) (Auto) % (45.0-75.0) Lymphocytes (%) (Auto) % (20.0-45.0) Monocytes (%) (Auto) % (1.0-10.0) Eosinophils (%) (Auto) % (0.0-3.0) Basophils (%) (Auto) % (0.0-2.0) Differential Total Cells Counted 100 Neutrophils % (Manual) 89 % (45-75) H Lymphocytes % (Manual) 6 % (20-45) L Monocytes % (Manual) 5 % (1-10) Eosinophils % (Manual) 0 % (0-3) Basophils % (Manual) 0 % (0-2) Band Neutrophils 0 % (0-8) Platelet Estimate Adequate Platelet Morphology Normal Hypochromasia 2+ Anisocytosis 1+ Sodium Level 152 MMOL/L (136-145) H Potassium Level 3.1 MMOL/L (3.5-5.1) L Chloride Level 117 MMOL/L (98-107) H Carbon Dioxide Level 27 MMOL/L (21-32) Anion Gap 8 mmol/L (5-15) Blood Urea Nitrogen 38 mg/dL (7-18) H Creatinine 0.9 MG/DL (0.55-1.30) Estimat Glomerular Filtration Rate > 60 mL/min (>60) Glucose Level 177 MG/DL (74-106) H Calcium Level 7.7 MG/DL (8.5-10.1) L Aspergillus galactomannan Antigen Pending Beta-(1,3)-D-Glucan Pending Josue Pantoja MD Jun 19, 2020 18:43
--- NOTE | 2020-06-19 19:10 | NUR ---
NURSE HAND-OFF REPORT: Latest Vital Signs: Temperature 99.0 , Pulse 57 , B/P 96 /53 , Respiratory Rate 26 , O2 SAT 96 , Mechanical Ventilator, O2 Flow Rate 15.0 . Vital Sign Comment: Stable EKG Rhythm: Sinus Rhythm Rhythm change?: N MD Notified?: - MD Response: Latest Osorio Fall Score: 50 Fall Risk: High Risk Safety Measures: Call light Within Reach, Bed Alarm Zone 3, Side Rails Side Rails x2, Bed position Low and Locked. Fall Precautions: Yellow Socks Yellow Gown Door Sign Patient Fall Education Report given to Shavonne Billings RN.
--- NOTE | 2020-06-19 19:30 | NUR ---
NURSE NOTES: Received report from TAI Alcala. Patient in bed awake with eyes open, watching TV, no s/s of acute distress noted. No fever. Full code. Orally intubated Fi02 95%O2 Sat 95% on the monitor. SR on laboratory monitor HR 72. HOB elevated.G-tube intact, clean and running Vital AF 1.2 at 60ml/hr. Gregorio intact and draining with yellow color urine. Left upper arm PICC intact, clean and running TKO. Kept dry, clean, comfortable and HOB>30. Call light placed in easy reach. Bed in lowest position and locked. Seizure precaution and contact isolation maintained and observed.SCD on bilateral legs. no bleeding. Will continue plan of care.
[2020-06-19] MEDS: Dyna-Hex 2% Top Sol 2oz TOPIC SCH (19:57)
--- NOTE | 2020-06-19 20:37 | Internal Med Progress Note ---
Subjective Physician Name Guillaume Hawk Attending Physician Elayne Allred MD Current Medications Medications (Trade) Dose Ordered Sig/Katy Route PRN Reason Start Time Stop Time Status Last Admin Dose Admin Acetaminophen (Tylenol) 650 mg Q4H PRN GT FEVER 06/03/20 11:45 07/03/20 11:44 06/15/20 03:17 Amikacin Protocol (Amikacin pharmacy to dose) 1 ea DAILY PRN MISC Per rx protocol 06/16/20 12:00 07/16/20 11:59 Amikacin Sulfate 1000 mg/Sodium Chloride 114 ml @ 114 mls/hr Q36H IV 06/16/20 14:00 06/23/20 13:59 06/19/20 15:23 Chlorhexidine Gluconate (Alla-Hex 2%) 1 applic DAILY@1999 TOPIC 06/08/20 20:00 09/06/20 19:59 06/19/20 19:57 Clotrimazole (Lotrimin) 1 applic Q12HR TOPIC 06/07/20 13:00 09/05/20 12:59 06/19/20 08:27 Dextrose (Dextrose 50%) 25 ml Q30M PRN IV Hypoglycemia 06/03/20 11:30 08/28/20 11:29 Dextrose (Dextrose 50%) 50 ml Q30M PRN IV Hypoglycemia 06/03/20 11:30 08/28/20 11:29 Dopamine HCl/ Dextrose 250 ml @ 0 mls/hr Q24H IV 06/12/20 11:15 09/10/20 11:14 06/14/20 19:47 Hydrocortisone (Solu-CORTEF) 100 mg EVERY 8 HOURS IV 06/07/20 14:00 09/05/20 13:59 06/19/20 15:21 Levothyroxine Sodium (Synthroid) 75 mcg DAILY GT 06/04/20 09:00 06/30/20 08:59 06/19/20 08:26 Meropenem 1 gm/ Sodium Chloride 55 ml @ 110 mls/hr Q8H IVPB 06/14/20 12:00 06/24/20 23:59 06/19/20 19:58 Midodrine (Pro-Amatine) 10 mg Q8HR GT 06/05/20 14:00 09/03/20 13:59 06/19/20 15:22 Norepinephrine Bitartrate 16 mg/ Dextrose 500 ml @ 0 mls/hr Q24H IV 06/08/20 07:45 07/07/20 12:59 06/12/20 08:43 Ondansetron HCl (Zofran) 4 mg Q6H PRN IVP Nausea & Vomiting 06/03/20 12:00 06/29/20 11:59 Pantoprazole (Protonix) 40 mg DAILY IV 06/04/20 09:00 06/30/20 08:59 06/19/20 08:26 Phenylephrine HCl 50 mg/Dextrose 250 ml @ 0 mls/hr Q24H PRN IV For hypotension 06/06/20 17:45 07/06/20 17:44 06/08/20 01:49 Polyethylene Glycol (Miralax) 17 gm DAILYPRN PRN GT Constipation 06/03/20 12:00 06/29/20 11:59 Valproic Acid (Depakene) 500 mg EVERY 8 HOURS GT 06/03/20 14:00 06/29/20 21:59 06/19/20 15:22 Allergies: Coded Allergies: No Known Allergies (Unverified , 10/16/18) Subjective in ICU, remained intubated on the vent, open eyes, unable to follow command. WBC : 18.2, K; 3.1 Objective Last Vital Signs Date Time Temp Pulse Resp B/P (MAP) Pulse Ox O2 Delivery O2 Flow Rate FiO2 06/19/20 19:16 51 26 95 06/19/20 18:00 96/53 (67) 96 06/19/20 16:06 99.0 06/19/20 16:00 Mechanical Ventilator Mechanical Ventilator Laboratory Tests Test 06/19/20 04:25 06/19/20 10:55 White Blood Count 19.2 K/UL (4.8-10.8) H Red Blood Count 2.64 M/UL (4.20-5.40) L Hemoglobin 8.5 G/DL (12.0-16.0) L Hematocrit 25.4 % (37.0-47.0) L Mean Corpuscular Volume 96 FL (80-99) Mean Corpuscular Hemoglobin 32.4 PG (27.0-31.0) H Mean Corpuscular Hemoglobin Concent 33.6 G/DL (32.0-36.0) Red Cell Distribution Width 14.7 % (11.6-14.8) Platelet Count 161 K/UL (150-450) Mean Platelet Volume 8.7 FL (6.5-10.1) Neutrophils (%) (Auto) % (45.0-75.0) Lymphocytes (%) (Auto) % (20.0-45.0) Monocytes (%) (Auto) % (1.0-10.0) Eosinophils (%) (Auto) % (0.0-3.0) Basophils (%) (Auto) % (0.0-2.0) Differential Total Cells Counted 100 Neutrophils % (Manual) 89 % (45-75) H Lymphocytes % (Manual) 6 % (20-45) L Monocytes % (Manual) 5 % (1-10) Eosinophils % (Manual) 0 % (0-3) Basophils % (Manual) 0 % (0-2) Band Neutrophils 0 % (0-8) Platelet Estimate Adequate Platelet Morphology Normal Hypochromasia 2+ Anisocytosis 1+ Sodium Level 152 MMOL/L (136-145) H Potassium Level 3.1 MMOL/L (3.5-5.1) L Chloride Level 117 MMOL/L (98-107) H Carbon Dioxide Level 27 MMOL/L (21-32) Anion Gap 8 mmol/L (5-15) Blood Urea Nitrogen 38 mg/dL (7-18) H Creatinine 0.9 MG/DL (0.55-1.30) Estimat Glomerular Filtration Rate > 60 mL/min (>60) Glucose Level 177 MG/DL (74-106) H Calcium Level 7.7 MG/DL (8.5-10.1) L Aspergillus galactomannan Antigen Pending Beta-(1,3)-D-Glucan Pending Intake and Output 06/18/20 06/19/20 19:00 07:00 Intake Total 1000 ml 1160 ml Output Total 710 ml 880 ml Balance 290 ml 280 ml Free Water 100 ml 100 ml IV Total 220 ml Tube Feeding 720 ml 720 ml Other 180 ml 120 ml Output Urine Total 710 ml 880 ml # Bowel Movements 2 5 Objective General: remain intubated, unable to follow command, open eyes. HEENT: NCAT, sclera anicteric, PERRL, ET Tube. Neck: Supple, no significant jugular venous distention, Lungs: mechanical breath sounds decreased air at the bases, no Wheeze or Rales. Heart: Regular rate and rhythm, normal S1/S2, no murmurs/gallops Abdomen: soft, not tender, not distended. + bowel sounds, Morbid Obesity, PEG site intact. Extremities: No Cyanosis , clubbing, resolving upper extremities edema. left upper extremity PICC line. Neuro: limited secondary to patient status, unable to follow command, bilateral upper and lower extremities contracted. Assessment/Plan Assessment/Plan Problem List: (1) HCAP (healthcare-associated pneumonia) (2) Sepsis (3) Down's syndrome (4) Dysphagia S/P PEG (5) Seizure disorder (6) Hypothyroidism (7) Acute Hypoxemic respiratory failure (8) Persistent, high grade bacteremia- r/o endocarditis (9) LEANN Plan: Tolerated tube feeding @ 60 cc/hr Follow-up with laboratory and cultures Hydrocortisone 100 mg IV every 8 Cont Meropenem#15(abx d #20/) Empiric Amikacin #4 Guillaume Hawk MD Jun 19, 2020 20:37
--- NOTE | 2020-06-19 21:30 | NUR ---
NURSE NOTES: patient in bed awake, suctioned orally. no s/s of acute distress noted. no moaning no facial grimaces. HOB elevated. Temp 98.9 axillary. Gt intact no residual. seizure precaution and contact isolation maintained and observed. frequent visual checks continued
--- NOTE | 2020-06-19 23:30 | NUR ---
NURSE NOTES: patient in bed sleeping comfortably. Sinus Blair on cardiac cath rn HR 55. no s/s of acute distress. no s/s of hypo/hyperglycemia. Repositioned patient in bed with pillow support. call light within easy reach.
[2020-06-20] VITALS (24 sets, daily range): BP systolic 94–121; BP diastolic 47–72
--- NOTE | 2020-06-20 01:30 | NUR ---
NURSE NOTES: Bed bath given tolerated well. no s/s of acute distress. no fever. no diarrhea. no n/v. will continue plan of care.
--- NOTE | 2020-06-20 03:30 | NUR ---
NURSE NOTES: patient in bed sleeping comfortably. Sinus Blair on cardiac specialist HR 59. no s/s of acute distress. no s/s of hypo/hyperglycemia. Suctioned patient orally. Repositioned patient in bed with pillow support. call light within easy reach.
[2020-06-20] MEDS: Meropenem 1 GM in NS 55 ML IVPB SCH ×3 (04:01→19:44)
--- NOTE | 2020-06-20 05:30 | NUR ---
NURSE NOTES: patient in bed awake, suctioned orally. no s/s of acute distress noted. no moaning no facial grimaces. HOB elevated. Temp 98.0 axillary. Gt intact no residual. seizure precaution and contact isolation maintained and observed. frequent visual checks continued
[2020-06-20] MEDS: Midodrine 10mg tab GT SCH ×3 (05:31→21:34)
[2020-06-20] MEDS: Valproic Acid 250mg/5ml Liquid GT SCH ×3 (05:32→21:34)
[2020-06-20] MEDS: Hydrocortisone 100mg Inj IV SCH ×3 (05:32→21:34)
[2020-06-20 05:44] LABS: HEMATOCRIT 25.9 % (37.0-47.0); HEMOGLOBIN 8.7 G/DL (12.0-16.0); MEAN CORPUSCULAR VOLUME 97 FL (80-99); PLATELET COUNT 178 K/UL (150-450); RED BLOOD COUNT 2.67 M/UL (4.20-5.40); RED CELL DISTRIBUTION WIDTH 14.5 % (11.6-14.8); WHITE BLOOD COUNT 11.3 K/UL (4.8-10.8)
[2020-06-20 05:53] LABS: ALANINE AMINOTRANSFERASE 118 U/L (12-78); ALBUMIN 1.1 G/DL (3.4-5.0); ALBUMIN/GLOBULIN RATIO 0.3 (1.0-2.7); ALKALINE PHOSPHATASE 59 U/L (46-116); ANION GAP 4 mmol/L (5-15); ASPARTATE AMINO TRANSFERASE 40 U/L (15-37); BILIRUBIN,TOTAL 0.5 MG/DL (0.2-1.0); BLOOD UREA NITROGEN 35 mg/dL (7-18); CALCIUM 7.5 MG/DL (8.5-10.1); CARBON DIOXIDE 29 MMOL/L (21-32); CHLORIDE 117 MMOL/L (98-107); CREATININE 0.9 MG/DL (0.55-1.30); POTASSIUM 3.2 MMOL/L (3.5-5.1); SODIUM 150 MMOL/L (136-145)
--- NOTE | 2020-06-20 07:08 | NUR ---
HAND-OFF: Report given to Madhuri LUJAN.
--- NOTE | 2020-06-20 07:09 | NUR ---
NURSE NOTES: Report received from TAI Marvin. Patient is awake and resting in bed. Eyes follow. Oriented to name. Non-verbal. Unable to follow commands. SR on bus driver/monitor. ETT 7.5/22 cm at lip line. AC 26, TV 500, FiO2 95%, P 10. O2 sat 93-94%. GT in place, receiving Vital AF 1.2 at 60cc/hr. No residual noted. Pitting +2 edema on bilateral upper extremitas and feet noted. Gregorio in place draining to gravity. JODY PICC line patent and asymptomatic, open for TKO. Bed in lowest position. Side rails up x3. Will resume plan of care.
[2020-06-20] MEDS: Norepinephrine Bitartrate 16 MG in D5W 500ml 484 ML IV SCH (07:45)
--- NOTE | 2020-06-20 08:06 | Pulmonolgy Critical Care Note ---
Critical Care - Asmt/Plan Problems: (1) Acute respiratory failure (2) Bacteremia (3) Pneumonia (4) Sepsis (5) HCAP (healthcare-associated pneumonia) (6) Seizure disorder (7) Down's syndrome Respiratory: monitor respiratory rate, adjust FIO2, CXR Cardiac: continue to monitor HR/BP Renal: F/U I&O, keep IV fluid, check electrolytes Infectious Disease: check cultures Gastrointestinal: continue feedings/current rate Hematologic: monitor H/H, transfuse if hgb<8.5 Neurologic: PRN Ativan, keep patient comfortable Affect: PRN ativan Prophylaxis: Protonix, Heparin Disposition: keep in ICU Time Spent (Minutes): 40 Notes Reviewed: 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 crew member, cardio Discussed with: nurses, consultants, case management 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 - Objective Last 24 Hour Vital Signs Date Time Temp Pulse Resp B/P (MAP) Pulse Ox O2 Delivery O2 Flow Rate FiO2 06/20/20 07:00 58 25 112/51 (71) 95 06/20/20 06:00 62 25 104/47 (66) 94 06/20/20 05:00 70 24 114/66 (82) 90 06/20/20 04:00 98.0 59 25 107/47 (67) 92 06/20/20 04:00 Mechanical Ventilator Mechanical Ventilator 06/20/20 04:00 95 06/20/20 03:41 57 06/20/20 03:16 59 26 95 06/20/20 03:00 57 23 102/49 (66) 95 06/20/20 02:00 59 24 103/56 (72) 94 06/20/20 01:00 50 26 118/59 (78) 94 06/20/20 00:00 98.7 51 26 121/61 (81) 95 06/20/20 00:00 Mechanical Ventilator Mechanical Ventilator 06/20/20 00:00 95 06/20/20 00:00 53 06/19/20 23:00 52 26 125/63 (83) 97 06/19/20 22:59 57 26 95 06/19/20 22:00 67 26 103/52 (69) 98 06/19/20 21:00 67 26 99/52 (68) 98 06/19/20 20:00 95 06/19/20 20:00 56 06/19/20 20:00 98.9 58 26 119/63 (81) 99 06/19/20 20:00 Mechanical Ventilator Mechanical Ventilator 06/19/20 19:16 51 26 95 06/19/20 19:00 52 26 92/50 (64) 97 06/19/20 18:00 57 26 96/53 (67) 96 06/19/20 17:00 66 26 109/55 (73) 99 06/19/20 16:10 95 06/19/20 16:06 99.0 65 26 119/60 (79) 99 06/19/20 16:00 65 06/19/20 16:00 Mechanical Ventilator Mechanical Ventilator 06/19/20 15:41 62 26 95 06/19/20 15:00 68 21 93/55 (68) 99 06/19/20 14:00 64 23 103/52 (69) 99 06/19/20 13:00 99.0 61 26 99/86 (90) 99 06/19/20 12:13 95 06/19/20 12:11 99.0 67 26 105/57 (73) 99 06/19/20 12:00 Mechanical Ventilator Mechanical Ventilator 06/19/20 12:00 60 06/19/20 11:00 65 26 99/48 (65) 98 06/19/20 10:54 55 26 95 06/19/20 10:00 59 23 114/57 (76) 98 06/19/20 09:00 98.0 57 17 104/58 (73) 99 Status: awake Condition: critical HEENT: atraumatic, normocephalic Neck: full ROM Heart: HR/BP stable Abdomen: non-tender Extremities: no C/C/E, edema Accucheck: 131 Critical Care - Subjective ROS Limited/Unobtainable: Yes Condition: critical EKG Rhythm: Sinus Rhythm FI02: 95 Vent Support Breath Rate: 26 Vent Support Mode: AC Vent Tidal Volume: 500 Sputum Amount: Moderate PEEP: 10.0 PIP: 50 Tube Feeding Amount: 60 I&O: Intake and Output 06/19/20 06/20/20 19:00 07:00 Intake Total 1020 ml 1260 ml Output Total 1255 ml 705 ml Balance -235 ml 555 ml Free Water 200 ml 200 ml IV Total 220 ml Tube Feeding 720 ml 720 ml Other 100 ml 120 ml Output Urine Total 1255 ml 705 ml # Bowel Movements 4 3 ET-Tube: 7.5 ET Position: 22 Labs: Laboratory Tests Test 06/19/20 10:55 06/20/20 04:00 Aspergillus galactomannan Antigen Pending Beta-(1,3)-D-Glucan Pending White Blood Count 11.3 K/UL (4.8-10.8) H Red Blood Count 2.67 M/UL (4.20-5.40) L Hemoglobin 8.7 G/DL (12.0-16.0) L Hematocrit 25.9 % (37.0-47.0) L Mean Corpuscular Volume 97 FL (80-99) Mean Corpuscular Hemoglobin 32.6 PG (27.0-31.0) H Mean Corpuscular Hemoglobin Concent 33.6 G/DL (32.0-36.0) Red Cell Distribution Width 14.5 % (11.6-14.8) Platelet Count 178 K/UL (150-450) Mean Platelet Volume 8.8 FL (6.5-10.1) Neutrophils (%) (Auto) % (45.0-75.0) Lymphocytes (%) (Auto) % (20.0-45.0) Monocytes (%) (Auto) % (1.0-10.0) Eosinophils (%) (Auto) % (0.0-3.0) Basophils (%) (Auto) % (0.0-2.0) Neutrophils % (Manual) Pending Lymphocytes % (Manual) Pending Platelet Estimate Pending Platelet Morphology Pending Sodium Level 150 MMOL/L (136-145) H Potassium Level 3.2 MMOL/L (3.5-5.1) L Chloride Level 117 MMOL/L (98-107) H Carbon Dioxide Level 29 MMOL/L (21-32) Anion Gap 4 mmol/L (5-15) L Blood Urea Nitrogen 35 mg/dL (7-18) H Creatinine 0.9 MG/DL (0.55-1.30) Estimat Glomerular Filtration Rate > 60 mL/min (>60) Glucose Level 158 MG/DL (74-106) H Calcium Level 7.5 MG/DL (8.5-10.1) L Phosphorus Level 3.0 MG/DL (2.5-4.9) Magnesium Level 1.8 MG/DL (1.8-2.4) Total Bilirubin 0.5 MG/DL (0.2-1.0) Aspartate Amino Transf (AST/SGOT) 40 U/L (15-37) H Alanine Aminotransferase (ALT/SGPT) 118 U/L (12-78) H Alkaline Phosphatase 59 U/L (46-116) Total Protein 4.6 G/DL (6.4-8.2) L Albumin 1.1 G/DL (3.4-5.0) L Globulin 3.5 g/dL Albumin/Globulin Ratio 0.3 (1.0-2.7) L Elayne Allred MD Jun 20, 2020 08:06
--- NOTE | 2020-06-20 08:06 | NUR ---
NURSE NOTES: Dr Allred here to see the patient. Updated him with patient's current condition. No new orders for now.
[2020-06-20] MEDS: Pantoprazole Inj IV SCH (08:39)
[2020-06-20] MEDS: KCl 20mEq 100ml Premix IVPB SCH ×2 (08:39→11:03)
--- NOTE | 2020-06-20 10:00 | NUR ---
NURSE NOTES: Turned patient to left side to keep the right chest elevated as per order. Suctioned as needed. Patient is watching TV in bed. No acute distress noted.
--- NOTE | 2020-06-20 10:27 | Nephrology Progress Note ---
Assessment/Plan Problem List: (1) LEANN (acute kidney injury) (2) Respiratory failure requiring intubation (3) Down's syndrome (4) Seizure disorder (5) Hypothyroidism Assessment Acute renal failure, likely due to hypotension Acute respiratory distress, hypoxia Seizure disorder Hypothyroidism Down syndrome Full code Fluid challenge with IV fluids and albumin Midodrine for BP above 100 systolic Check TSH level Check Correct level Monitor renal parameters Urine studies Per orders Plan June 20: Labs reviewed. Potassium supplement given. Patient remains full code. Continue per consultants. June 19: Lab reviewed. Electrolyte abnormalities addressed. Continue per pulmonary and ID. June 18: Lab reviewed. Status unchanged. Serum sodium 151 unchanged. Stable from renal standpoint of view. June 17: Labs reviewed. Status quo. D5W 500 cc IV ordered. Continue to monitor renal parameters. June 16: Status quo. Labs reviewed. Overall condition unchanged. Patient was transfused and hemoglobin higher. Continue current management. Patient remains full code. June 15: Status quo. Overall condition poor. Very low albumin. Edematous. Hypotensive. Hemoglobin lower. Anemia work-up ordered. I favor transfusion 2 units of packed RBCs. Patient remains full code. I favor supportive care only. Will discuss. June 14: Electrolyte abnormalities addressed. Serum creatinine lower. Continue per current management. June 13: Status unchanged. Lab reviewed. Serum potassium 2.7. IV potassium chloride ordered. Serum creatinine low at 1.6 stable. Blood pressure 90s systolic June 12: Status quo. Labs reviewed. Renal parameters stable. Serum creatinine down to 1.6. Medication list reviewed. Continues to be on midodrine. Continue per consultants. June 11: Status quo. Labs reviewed. Electrolytes adjusted. Serum creatinine down to 1.8. Continue per consultants. June 10: Status quo. Labs reviewed. Phosphorus supplement IV given. Serum creatinine 2. Continue per consultants. June 09: Requires less pressors. Albumin bolus given. 1 dose of Lasix IV ordered as the patient severely edematous. Patient serum albumin is very low. Continue per consultants. June 08: Continues to be intubated. Labs reviewed. Serum creatinine 1.9 unchanged. Blood pressure more stable. Off 1 of the pressors. Continue to monitor renal parameters. Continue per consultants. Patient now on hydrocortisone 100 mg every 8 hours. Will decrease IV fluid. Normal saline down to 50 cc an hour. June 07: Intubated. Labs reviewed. Creatinine 1.9 unchanged. Continue same treatment plan. Per consultants. Overall poor prognosis since the patient remains on pressors and her pulmonary status is worsening. June 06: Remains intubated. Labs reviewed. Creatinine 1.9. Blood pressure systolic 90s. Continue per consultants. June 05: Remains intubated. Labs reviewed. Serum creatinine lower to 2. Vancomycin level lower. Remains hypotensive on pressors. Will increase midodrine to 10 mg every 8 hours. Continue per consultants. Continue to monitor renal parameters. June 04: Patient now in ICU. Intubated. On pressors. Labs reviewed. Will increase midodrine. Aim to keep blood pressure over 100 systolic. Will give albumin bolus. Will check vancomycin level which was elevated when checked previously on June 01. Will monitor renal parameters. Continue per consultants. Subjective ROS Limited/Unobtainable: Yes Objective Objective Last 24 Hour Vital Signs Date Time Temp Pulse Resp B/P (MAP) Pulse Ox O2 Delivery O2 Flow Rate FiO2 06/20/20 10:00 69 23 107/54 (71) 78 06/20/20 09:00 57 26 97/49 (65) 95 06/20/20 08:00 58 06/20/20 08:00 98.6 58 26 106/49 (68) 92 06/20/20 08:00 Mechanical Ventilator Mechanical Ventilator 06/20/20 08:00 95 06/20/20 07:00 58 25 112/51 (71) 95 06/20/20 06:00 62 25 104/47 (66) 94 06/20/20 05:00 70 24 114/66 (82) 90 06/20/20 04:00 98.0 59 25 107/47 (67) 92 06/20/20 04:00 Mechanical Ventilator Mechanical Ventilator 06/20/20 04:00 95 06/20/20 03:41 57 06/20/20 03:16 59 26 95 06/20/20 03:00 57 23 102/49 (66) 95 06/20/20 02:00 59 24 103/56 (72) 94 06/20/20 01:00 50 26 118/59 (78) 94 06/20/20 00:00 98.7 51 26 121/61 (81) 95 06/20/20 00:00 Mechanical Ventilator Mechanical Ventilator 06/20/20 00:00 95 06/20/20 00:00 53 06/19/20 23:00 52 26 125/63 (83) 97 06/19/20 22:59 57 26 95 06/19/20 22:00 67 26 103/52 (69) 98 06/19/20 21:00 67 26 99/52 (68) 98 06/19/20 20:00 95 06/19/20 20:00 56 06/19/20 20:00 98.9 58 26 119/63 (81) 99 06/19/20 20:00 Mechanical Ventilator Mechanical Ventilator 06/19/20 19:16 51 26 95 06/19/20 19:00 52 26 92/50 (64) 97 06/19/20 18:00 57 26 96/53 (67) 96 06/19/20 17:00 66 26 109/55 (73) 99 06/19/20 16:10 95 06/19/20 16:06 99.0 65 26 119/60 (79) 99 06/19/20 16:00 65 06/19/20 16:00 Mechanical Ventilator Mechanical Ventilator 06/19/20 15:41 62 26 95 06/19/20 15:00 68 21 93/55 (68) 99 06/19/20 14:00 64 23 103/52 (69) 99 06/19/20 13:00 99.0 61 26 99/86 (90) 99 06/19/20 12:13 95 06/19/20 12:11 99.0 67 26 105/57 (73) 99 06/19/20 12:00 Mechanical Ventilator Mechanical Ventilator 06/19/20 12:00 60 06/19/20 11:00 65 26 99/48 (65) 98 06/19/20 10:54 55 26 95 Intake and Output 06/19/20 06/20/20 19:00 07:00 Intake Total 1020 ml 1260 ml Output Total 1255 ml 705 ml Balance -235 ml 555 ml Free Water 200 ml 200 ml IV Total 220 ml Tube Feeding 720 ml 720 ml Other 100 ml 120 ml Output Urine Total 1255 ml 705 ml # Bowel Movements 4 3 Laboratory Tests 06/19/20 10:55: Aspergillus galactomannan Antigen [Pending], Beta-(1,3)-D-Glucan [Pending] 06/20/20 04:00: White Blood Count 11.3H, Red Blood Count 2.67L, Hemoglobin 8.7L, Hematocrit 25.9L, Mean Corpuscular Volume 97, Mean Corpuscular Hemoglobin 32.6H, Mean Corpuscular Hemoglobin Concent 33.6, Red Cell Distribution Width 14.5, Platelet Count 178, Mean Platelet Volume 8.8, Neutrophils (%) (Auto) , Lymphocytes (%) ( Auto) , Monocytes (%) (Auto) , Eosinophils (%) (Auto) , Basophils (%) (Auto) , Differential Total Cells Counted 100, Neutrophils % (Manual) 90H, Lymphocytes % (Manual) 6L, Monocytes % (Manual) 3, Eosinophils % (Manual) 1, Basophils % ( Manual) 0, Band Neutrophils 0, Platelet Estimate Adequate, Platelet Morphology Normal, Hypochromasia 2+, Anisocytosis 1+, Spherocytes 1+, Sodium Level 150H, Potassium Level 3.2L, Chloride Level 117H, Carbon Dioxide Level 29, Anion Gap 4L , Blood Urea Nitrogen 35H, Creatinine 0.9, Estimat Glomerular Filtration Rate > 60, Glucose Level 158H, Calcium Level 7.5L, Phosphorus Level 3.0, Magnesium Level 1.8, Total Bilirubin 0.5, Aspartate Amino Transf (AST/SGOT) 40H, Alanine Aminotransferase (ALT/SGPT) 118H, Alkaline Phosphatase 59, Total Protein 4.6L, Albumin 1.1L, Globulin 3.5, Albumin/Globulin Ratio 0.3L Height (Feet): 5 Height (Inches): 3.00 Weight (Pounds): 172 General Appearance: no apparent distress EENT: other - On ventilator Cardiovascular: normal rate Respiratory/Chest: decreased breath sounds Abdomen: distended Keron Pitt MD Jun 20, 2020 10:27
--- NOTE | 2020-06-20 10:30 | NUR ---
NURSE NOTES: Dr Pitt here to see the patient. Updated him with patient's current condition, including low K level. Replacement is already ordered and running. Will continue to monitor.
[2020-06-20] MEDS: DOPamine 400mg/250ml 250 ML IV SCH (11:03)
--- NOTE | 2020-06-20 12:29 | NUR ---
RD ASSESSMENT & RECOMMENDATIONS SEE CARE ACTIVITY FOR COMPLETE ASSESSMENT DAILY ESTIMATED NEEDS: Needs based on CRITICAL CARE, 50kg 22-27 kcals/kg 3039-4635 total kcals 1.25-2 g protein/kg 63-100 g total protein 25-30 mL/kg 0539-8060 total fluid mLs NUTRITION DIAGNOSIS: Swallowing difficulty r/t dysphagia as evidenced by pt w/ Downs Syndrome, PEG dep for all nutritional needs, now intubated, now off pressor support, ICU status. CURRENT TF:Vital AF 1.2 @ 60ml/hr x 22 hrs ENTERAL NUTRITION RECOMMENDATIONS: VITAL AF 1.2 @ 50ml/hr x22 hrs to provide 1100ml, 1320 kcal, 83g pro, 892ml free H2O - LOWER goal rate to 50ml/hr not to exceed est kcal needs -> will meet 100% est kcal/prot needs - Hold TF 1 hr before and after synthroid meds. - Flush per MD, HOB over 30 degrees. WITHOUT HEMODYNAMIC STABILITY, rec trophic feeds of Vital AF 1.2 @ 10ml/hr ADDITIONAL RECOMMENDATIONS: 1) Ht of 61 inches per SNF; recalibrate bed scale for accurate CBW 2) Monitor BG closely w/ Solucortef-> rec add novolog for BG control 3) Monitor hemodynamic stability: pressors held at this time 4) Wound healing: Continue Vit C 250mg QD + [place] BID 5) Monitor lytes, replete as needed 6) Monitor TF tolerance: h/o elev residuals, TF now well tolerated 6) Rec prokinetics w/ continued residuals-> minimal now, 6ml, 8ml.
--- NOTE | 2020-06-20 12:51 | NUR ---
NURSE NOTES: Turned and repositioned patient. Afebrile. IV KCL placement is still running as ordered. No signs or symptoms of pain or discomfort noted.
--- NOTE | 2020-06-20 14:00 | NUR ---
NURSE NOTES: Patient is sleeping in bed. Blair down to 50's when sleeping. Turned and repositioned patient. HR back up to 60's. Will closely monitor HR.
--- NOTE | 2020-06-20 14:06 | Infectious Diseases Prog Note ---
Assessment/Plan ASSESSMENT: sp code blue 06/03 Septic Shock; SP Fever, recurrent Leukocytosis; recurrent; persistent -06/17 u/a no pyuria -06/16 Bcx NTD (Picc line) -06/14 Bcx NTD ucx Neg sp cx C. parapsilopsis -06/03 u/a no pyuria Pneumonia.- COVID 19 neg x3 Acute hypoxic resp failure on VM> NRB 15l 100%; hypoxic on ABG> now VDRF 06/03 - Fio2 80% >100% 06/05> 60% 06/09 >80% 06/10 >95% 06/18 -06/13 CXR:Small bilateral pleural effusions with minor edema. Stable edema with mild worsening in the degree of pleural effusion on the right. -06/09 sp cx Neg 06/08 CXR: Extensive bilateral interstitial and airspace disease appears similar to the prior exam. Moderate to large bilateral pleural effusions appear unchanged. 06/05 CXR: Increasing left upper lobe dense consolidation and likely increasing bilateral pleural fluid. Persistent diffuse dense consolidation elsewhere -06/03 sp cx normal resp marie -06/02 CXR: Increased atelectasis of the right lung, since prior exam of 3 days earlier. New or increased right pleural effusion. Increased left basilar consolidation and/or pleural fluid -COVID Rapid PCR neg 05/31, 05/31, 06/03 -05/30 spc x Group G strep -05/30 CXR: Reduced lung volumes. Patchy bilateral predominantly interstitial pulmonary opacities. Could be from edema and/or pneumonia. There is a broader differential. -legionella ag urine, blasto ab, Histo ab, HIV ab screen, FRANCIS, ANCA neg Persistent, high grade bacteremia- -05/30 Bcx 4/4 sets S. haemolyticus; 05/31 Bcx 3/4 S/ epi; 06/04 Bcx 1.4 S. warnerri; 06/06 Bcx Neg -2d echo: no vegetaions seen ua/ wbc 10-15, nit neg, leuk +1; ucx Neg LEANN; -supratherapeutic vanco levels -Seizure disorder. - Hypothyroidism. - Down syndrome. History of PEG tube placement. CT resident PLAN: -f/u repeat blood Cx sputum and Urine Cx Cont Meropenem#16(abx d #) given resp decompensation Empiric Amikacin #5/5-7 pending repeat cultures 06/12/20 SP Daptomycin #11 06/10 SP MIcafungin #7, Linezolid #5 06/05 SP Azithromycin #7/7 06/03 SP Ceftriaxone #2 06/02 SP IV Vancomycin #4, Zosyn #4 05/30 SP Cefepime x1, Flagyl x1 - Monitor CBC, BMP. .f/u Repeat cx - COVID neg x3 - Monitor chest x-ray. - Monitor the patient's clinical course and labs. Based on those, we will do further recommendation. -f/u Bcx from picc line, cdiff if diarrhea -f/u Fungitell, asp ag, flow cytometry -Once stable, CT chest/abd/pw/ given persistent leukocytosis Thank you, Dr. Allred, for allowing me to participate in the care of this patient. I will follow the patient with you at this hospitalization. Discussed with RN Subjective Allergies: Coded Allergies: No Known Allergies (Unverified , 10/16/18) afebrile leukocytosis resolving Bcx NTD Fio2 95% Objective Last 24 Hour Vital Signs Date Time Temp Pulse Resp B/P (MAP) Pulse Ox O2 Delivery O2 Flow Rate FiO2 06/20/20 13:00 62 26 105/56 (72) 96 06/20/20 12:00 64 25 106/51 (69) 96 06/20/20 12:00 Mechanical Ventilator Mechanical Ventilator 06/20/20 12:00 95 06/20/20 12:00 63 06/20/20 11:28 63 26 95 06/20/20 11:00 62 23 97/56 (70) 92 06/20/20 10:00 69 23 107/54 (71) 92 06/20/20 09:00 57 26 97/49 (65) 95 06/20/20 08:00 58 06/20/20 08:00 98.6 58 26 106/49 (68) 92 06/20/20 08:00 Mechanical Ventilator Mechanical Ventilator 06/20/20 08:00 95 06/20/20 07:16 68 27 95 06/20/20 07:00 58 25 112/51 (71) 95 06/20/20 06:00 62 25 104/47 (66) 94 06/20/20 05:00 70 24 114/66 (82) 90 06/20/20 04:00 98.0 59 25 107/47 (67) 92 06/20/20 04:00 Mechanical Ventilator Mechanical Ventilator 06/20/20 04:00 95 06/20/20 03:41 57 06/20/20 03:16 59 26 95 06/20/20 03:00 57 23 102/49 (66) 95 06/20/20 02:00 59 24 103/56 (72) 94 06/20/20 01:00 50 26 118/59 (78) 94 06/20/20 00:00 98.7 51 26 121/61 (81) 95 06/20/20 00:00 Mechanical Ventilator Mechanical Ventilator 06/20/20 00:00 95 06/20/20 00:00 53 06/19/20 23:00 52 26 125/63 (83) 97 06/19/20 22:59 57 26 95 06/19/20 22:00 67 26 103/52 (69) 98 06/19/20 21:00 67 26 99/52 (68) 98 06/19/20 20:00 95 06/19/20 20:00 56 06/19/20 20:00 98.9 58 26 119/63 (81) 99 06/19/20 20:00 Mechanical Ventilator Mechanical Ventilator 06/19/20 19:16 51 26 95 06/19/20 19:00 52 26 92/50 (64) 97 06/19/20 18:00 57 26 96/53 (67) 96 06/19/20 17:00 66 26 109/55 (73) 99 06/19/20 16:10 95 06/19/20 16:06 99.0 65 26 119/60 (79) 99 06/19/20 16:00 65 06/19/20 16:00 Mechanical Ventilator Mechanical Ventilator 06/19/20 15:41 62 26 95 06/19/20 15:00 68 21 93/55 (68) 99 Height (Feet): 5 Height (Inches): 3.00 Weight (Pounds): 172 HEENT: No pale conjunctivae. No icterus. ETT in place NECK: No lymphadenopathy. CHEST: Coarse breathing sounds. HEART: S1 and S2. ABDOMEN: Soft. PEG tube in place. EXTREMITIES: No cyanosis at this time . SKIN: no rash Laboratory Tests Test 06/20/20 04:00 White Blood Count 11.3 K/UL (4.8-10.8) H Red Blood Count 2.67 M/UL (4.20-5.40) L Hemoglobin 8.7 G/DL (12.0-16.0) L Hematocrit 25.9 % (37.0-47.0) L Mean Corpuscular Volume 97 FL (80-99) Mean Corpuscular Hemoglobin 32.6 PG (27.0-31.0) H Mean Corpuscular Hemoglobin Concent 33.6 G/DL (32.0-36.0) Red Cell Distribution Width 14.5 % (11.6-14.8) Platelet Count 178 K/UL (150-450) Mean Platelet Volume 8.8 FL (6.5-10.1) Neutrophils (%) (Auto) % (45.0-75.0) Lymphocytes (%) (Auto) % (20.0-45.0) Monocytes (%) (Auto) % (1.0-10.0) Eosinophils (%) (Auto) % (0.0-3.0) Basophils (%) (Auto) % (0.0-2.0) Differential Total Cells Counted 100 Neutrophils % (Manual) 90 % (45-75) H Lymphocytes % (Manual) 6 % (20-45) L Monocytes % (Manual) 3 % (1-10) Eosinophils % (Manual) 1 % (0-3) Basophils % (Manual) 0 % (0-2) Band Neutrophils 0 % (0-8) Platelet Estimate Adequate Platelet Morphology Normal Hypochromasia 2+ Anisocytosis 1+ Spherocytes 1+ Sodium Level 150 MMOL/L (136-145) H Potassium Level 3.2 MMOL/L (3.5-5.1) L Chloride Level 117 MMOL/L (98-107) H Carbon Dioxide Level 29 MMOL/L (21-32) Anion Gap 4 mmol/L (5-15) L Blood Urea Nitrogen 35 mg/dL (7-18) H Creatinine 0.9 MG/DL (0.55-1.30) Estimat Glomerular Filtration Rate > 60 mL/min (>60) Glucose Level 158 MG/DL (74-106) H Calcium Level 7.5 MG/DL (8.5-10.1) L Phosphorus Level 3.0 MG/DL (2.5-4.9) Magnesium Level 1.8 MG/DL (1.8-2.4) Total Bilirubin 0.5 MG/DL (0.2-1.0) Aspartate Amino Transf (AST/SGOT) 40 U/L (15-37) H Alanine Aminotransferase (ALT/SGPT) 118 U/L (12-78) H Alkaline Phosphatase 59 U/L (46-116) Total Protein 4.6 G/DL (6.4-8.2) L Albumin 1.1 G/DL (3.4-5.0) L Globulin 3.5 g/dL Albumin/Globulin Ratio 0.3 (1.0-2.7) L Current Medications Medications (Trade) Dose Ordered Sig/Katy Route PRN Reason Start Time Stop Time Status Last Admin Dose Admin Acetaminophen (Tylenol) 650 mg Q4H PRN GT FEVER 06/03/20 11:45 07/03/20 11:44 06/15/20 03:17 Amikacin Protocol (Amikacin pharmacy to dose) 1 ea DAILY PRN MISC Per rx protocol 06/16/20 12:00 07/16/20 11:59 Amikacin Sulfate 1000 mg/Sodium Chloride 114 ml @ 114 mls/hr Q36H IV 06/16/20 14:00 06/23/20 13:59 06/19/20 15:23 Chlorhexidine Gluconate (Alla-Hex 2%) 1 applic DAILY@1999 TOPIC 06/08/20 20:00 09/06/20 19:59 06/19/20 19:57 Clotrimazole (Lotrimin) 1 applic Q12HR TOPIC 06/07/20 13:00 09/05/20 12:59 06/20/20 08:40 Dextrose (Dextrose 50%) 25 ml Q30M PRN IV Hypoglycemia 06/03/20 11:30 08/28/20 11:29 Dextrose (Dextrose 50%) 50 ml Q30M PRN IV Hypoglycemia 06/03/20 11:30 08/28/20 11:29 Dopamine HCl/ Dextrose 250 ml @ 0 mls/hr Q24H IV 06/12/20 11:15 09/10/20 11:14 06/14/20 19:47 Hydrocortisone (Solu-CORTEF) 100 mg EVERY 8 HOURS IV 06/07/20 14:00 09/05/20 13:59 06/20/20 13:19 Levothyroxine Sodium (Synthroid) 75 mcg DAILY GT 06/04/20 09:00 06/30/20 08:59 06/20/20 08:40 Meropenem 1 gm/ Sodium Chloride 55 ml @ 110 mls/hr Q8H IVPB 06/14/20 12:00 06/24/20 23:59 06/20/20 11:26 Midodrine (Pro-Amatine) 10 mg Q8HR GT 06/05/20 14:00 09/03/20 13:59 06/20/20 13:19 Norepinephrine Bitartrate 16 mg/ Dextrose 500 ml @ 0 mls/hr Q24H IV 06/08/20 07:45 07/07/20 12:59 06/12/20 08:43 Ondansetron HCl (Zofran) 4 mg Q6H PRN IVP Nausea & Vomiting 06/03/20 12:00 06/29/20 11:59 Pantoprazole (Protonix) 40 mg DAILY IV 06/04/20 09:00 06/30/20 08:59 06/20/20 08:39 Phenylephrine HCl 50 mg/Dextrose 250 ml @ 0 mls/hr Q24H PRN IV For hypotension 06/06/20 17:45 07/06/20 17:44 06/08/20 01:49 Polyethylene Glycol (Miralax) 17 gm DAILYPRN PRN GT Constipation 06/03/20 12:00 06/29/20 11:59 Valproic Acid (Depakene) 500 mg EVERY 8 HOURS GT 06/03/20 14:00 06/29/20 21:59 06/20/20 13:19 Suki Camejo M.D. Jun 20, 2020 14:06
--- NOTE | 2020-06-20 14:42 | Cardiology Progress Note ---
Assessment/Plan Assessment/Plan sepsis respiratory failure ards renal insuf bacteremia abn cardiac enzyme due to demand sinus rafael stable thrombocytopenia resolved hypernatremia covid isolation removed as covid -x3 min trop abn ekg last one form 05/30 reviewed non ischemic echo preformed 06/02 nl lv function off pressor bp borderline again vent support abx wbc improved na increased still renal insuf min better 3rd spacing alot cxr form 06/18 reviewed tsh seems fine sig edema with hypernatremia need nauteresis eventually when bp is better Subjective ROS Limited/Unobtainable: Yes Subjective on a vent not communicative Objective Last 24 Hour Vital Signs Date Time Temp Pulse Resp B/P (MAP) Pulse Ox O2 Delivery O2 Flow Rate FiO2 06/20/20 13:00 62 26 105/56 (72) 96 06/20/20 12:00 64 25 106/51 (69) 96 06/20/20 12:00 Mechanical Ventilator Mechanical Ventilator 06/20/20 12:00 95 06/20/20 12:00 63 06/20/20 11:28 63 26 95 06/20/20 11:00 62 23 97/56 (70) 92 06/20/20 10:00 69 23 107/54 (71) 92 06/20/20 09:00 57 26 97/49 (65) 95 06/20/20 08:00 58 06/20/20 08:00 98.6 58 26 106/49 (68) 92 06/20/20 08:00 Mechanical Ventilator Mechanical Ventilator 06/20/20 08:00 95 06/20/20 07:16 68 27 95 06/20/20 07:00 58 25 112/51 (71) 95 06/20/20 06:00 62 25 104/47 (66) 94 06/20/20 05:00 70 24 114/66 (82) 90 06/20/20 04:00 98.0 59 25 107/47 (67) 92 06/20/20 04:00 Mechanical Ventilator Mechanical Ventilator 06/20/20 04:00 95 06/20/20 03:41 57 06/20/20 03:16 59 26 95 06/20/20 03:00 57 23 102/49 (66) 95 06/20/20 02:00 59 24 103/56 (72) 94 06/20/20 01:00 50 26 118/59 (78) 94 06/20/20 00:00 98.7 51 26 121/61 (81) 95 06/20/20 00:00 Mechanical Ventilator Mechanical Ventilator 06/20/20 00:00 95 06/20/20 00:00 53 06/19/20 23:00 52 26 125/63 (83) 97 06/19/20 22:59 57 26 95 06/19/20 22:00 67 26 103/52 (69) 98 06/19/20 21:00 67 26 99/52 (68) 98 06/19/20 20:00 95 06/19/20 20:00 56 06/19/20 20:00 98.9 58 26 119/63 (81) 99 06/19/20 20:00 Mechanical Ventilator Mechanical Ventilator 06/19/20 19:16 51 26 95 06/19/20 19:00 52 26 92/50 (64) 97 06/19/20 18:00 57 26 96/53 (67) 96 06/19/20 17:00 66 26 109/55 (73) 99 06/19/20 16:10 95 06/19/20 16:06 99.0 65 26 119/60 (79) 99 06/19/20 16:00 65 06/19/20 16:00 Mechanical Ventilator Mechanical Ventilator 06/19/20 15:41 62 26 95 06/19/20 15:00 68 21 93/55 (68) 99 Intake and Output 06/19/20 06/20/20 19:00 07:00 Intake Total 1020 ml 1260 ml Output Total 1255 ml 705 ml Balance -235 ml 555 ml Free Water 200 ml 200 ml IV Total 220 ml Tube Feeding 720 ml 720 ml Other 100 ml 120 ml Output Urine Total 1255 ml 705 ml # Bowel Movements 4 3 Laboratory Tests Test 06/20/20 04:00 White Blood Count 11.3 K/UL (4.8-10.8) H Red Blood Count 2.67 M/UL (4.20-5.40) L Hemoglobin 8.7 G/DL (12.0-16.0) L Hematocrit 25.9 % (37.0-47.0) L Mean Corpuscular Volume 97 FL (80-99) Mean Corpuscular Hemoglobin 32.6 PG (27.0-31.0) H Mean Corpuscular Hemoglobin Concent 33.6 G/DL (32.0-36.0) Red Cell Distribution Width 14.5 % (11.6-14.8) Platelet Count 178 K/UL (150-450) Mean Platelet Volume 8.8 FL (6.5-10.1) Neutrophils (%) (Auto) % (45.0-75.0) Lymphocytes (%) (Auto) % (20.0-45.0) Monocytes (%) (Auto) % (1.0-10.0) Eosinophils (%) (Auto) % (0.0-3.0) Basophils (%) (Auto) % (0.0-2.0) Differential Total Cells Counted 100 Neutrophils % (Manual) 90 % (45-75) H Lymphocytes % (Manual) 6 % (20-45) L Monocytes % (Manual) 3 % (1-10) Eosinophils % (Manual) 1 % (0-3) Basophils % (Manual) 0 % (0-2) Band Neutrophils 0 % (0-8) Platelet Estimate Adequate Platelet Morphology Normal Hypochromasia 2+ Anisocytosis 1+ Spherocytes 1+ Sodium Level 150 MMOL/L (136-145) H Potassium Level 3.2 MMOL/L (3.5-5.1) L Chloride Level 117 MMOL/L (98-107) H Carbon Dioxide Level 29 MMOL/L (21-32) Anion Gap 4 mmol/L (5-15) L Blood Urea Nitrogen 35 mg/dL (7-18) H Creatinine 0.9 MG/DL (0.55-1.30) Estimat Glomerular Filtration Rate > 60 mL/min (>60) Glucose Level 158 MG/DL (74-106) H Calcium Level 7.5 MG/DL (8.5-10.1) L Phosphorus Level 3.0 MG/DL (2.5-4.9) Magnesium Level 1.8 MG/DL (1.8-2.4) Total Bilirubin 0.5 MG/DL (0.2-1.0) Aspartate Amino Transf (AST/SGOT) 40 U/L (15-37) H Alanine Aminotransferase (ALT/SGPT) 118 U/L (12-78) H Alkaline Phosphatase 59 U/L (46-116) Total Protein 4.6 G/DL (6.4-8.2) L Albumin 1.1 G/DL (3.4-5.0) L Globulin 3.5 g/dL Albumin/Globulin Ratio 0.3 (1.0-2.7) L Josue Pantoja MD Jun 20, 2020 14:42
--- NOTE | 2020-06-20 15:05 | Internal Med Progress Note ---
Subjective Date of Service: Jun 20, 2020 Physician Name Joni Copeland Attending Physician Elayne Allred MD Current Medications Medications (Trade) Dose Ordered Sig/Katy Route PRN Reason Start Time Stop Time Status Last Admin Dose Admin Acetaminophen (Tylenol) 650 mg Q4H PRN GT FEVER 06/03/20 11:45 07/03/20 11:44 06/15/20 03:17 Amikacin Protocol (Amikacin pharmacy to dose) 1 ea DAILY PRN MISC Per rx protocol 06/16/20 12:00 07/16/20 11:59 Amikacin Sulfate 1000 mg/Sodium Chloride 114 ml @ 114 mls/hr Q36H IV 06/16/20 14:00 06/23/20 13:59 06/19/20 15:23 Chlorhexidine Gluconate (Alla-Hex 2%) 1 applic DAILY@1999 TOPIC 06/08/20 20:00 09/06/20 19:59 06/19/20 19:57 Clotrimazole (Lotrimin) 1 applic Q12HR TOPIC 06/07/20 13:00 09/05/20 12:59 06/20/20 08:40 Dextrose (Dextrose 50%) 25 ml Q30M PRN IV Hypoglycemia 06/03/20 11:30 08/28/20 11:29 Dextrose (Dextrose 50%) 50 ml Q30M PRN IV Hypoglycemia 06/03/20 11:30 08/28/20 11:29 Dopamine HCl/ Dextrose 250 ml @ 0 mls/hr Q24H IV 06/12/20 11:15 09/10/20 11:14 06/14/20 19:47 Hydrocortisone (Solu-CORTEF) 100 mg EVERY 8 HOURS IV 06/07/20 14:00 09/05/20 13:59 06/20/20 13:19 Levothyroxine Sodium (Synthroid) 75 mcg DAILY GT 06/04/20 09:00 06/30/20 08:59 06/20/20 08:40 Meropenem 1 gm/ Sodium Chloride 55 ml @ 110 mls/hr Q8H IVPB 06/14/20 12:00 06/24/20 23:59 06/20/20 11:26 Midodrine (Pro-Amatine) 10 mg Q8HR GT 06/05/20 14:00 09/03/20 13:59 06/20/20 13:19 Norepinephrine Bitartrate 16 mg/ Dextrose 500 ml @ 0 mls/hr Q24H IV 06/08/20 07:45 07/07/20 12:59 06/12/20 08:43 Ondansetron HCl (Zofran) 4 mg Q6H PRN IVP Nausea & Vomiting 06/03/20 12:00 06/29/20 11:59 Pantoprazole (Protonix) 40 mg DAILY IV 06/04/20 09:00 06/30/20 08:59 06/20/20 08:39 Phenylephrine HCl 50 mg/Dextrose 250 ml @ 0 mls/hr Q24H PRN IV For hypotension 06/06/20 17:45 07/06/20 17:44 06/08/20 01:49 Polyethylene Glycol (Miralax) 17 gm DAILYPRN PRN GT Constipation 06/03/20 12:00 06/29/20 11:59 Valproic Acid (Depakene) 500 mg EVERY 8 HOURS GT 06/03/20 14:00 06/29/20 21:59 06/20/20 13:19 Allergies: Coded Allergies: No Known Allergies (Unverified , 10/16/18) ROS Limited/Unobtainable: Yes Subjective 59 YO F with Down's syndrome admitted with hypoxia. Now sepsis and pneumonia. Cover for Int Med-DR Hawk. ICU. Intubated and sedated Objective Last Vital Signs Date Time Temp Pulse Resp B/P (MAP) Pulse Ox O2 Delivery O2 Flow Rate FiO2 06/20/20 14:00 51 26 101/52 (68) 94 06/20/20 12:00 Mechanical Ventilator Mechanical Ventilator 06/20/20 12:00 95 06/20/20 08:00 98.6 Laboratory Tests Test 06/20/20 04:00 White Blood Count 11.3 K/UL (4.8-10.8) H Red Blood Count 2.67 M/UL (4.20-5.40) L Hemoglobin 8.7 G/DL (12.0-16.0) L Hematocrit 25.9 % (37.0-47.0) L Mean Corpuscular Volume 97 FL (80-99) Mean Corpuscular Hemoglobin 32.6 PG (27.0-31.0) H Mean Corpuscular Hemoglobin Concent 33.6 G/DL (32.0-36.0) Red Cell Distribution Width 14.5 % (11.6-14.8) Platelet Count 178 K/UL (150-450) Mean Platelet Volume 8.8 FL (6.5-10.1) Neutrophils (%) (Auto) % (45.0-75.0) Lymphocytes (%) (Auto) % (20.0-45.0) Monocytes (%) (Auto) % (1.0-10.0) Eosinophils (%) (Auto) % (0.0-3.0) Basophils (%) (Auto) % (0.0-2.0) Differential Total Cells Counted 100 Neutrophils % (Manual) 90 % (45-75) H Lymphocytes % (Manual) 6 % (20-45) L Monocytes % (Manual) 3 % (1-10) Eosinophils % (Manual) 1 % (0-3) Basophils % (Manual) 0 % (0-2) Band Neutrophils 0 % (0-8) Platelet Estimate Adequate Platelet Morphology Normal Hypochromasia 2+ Anisocytosis 1+ Spherocytes 1+ Sodium Level 150 MMOL/L (136-145) H Potassium Level 3.2 MMOL/L (3.5-5.1) L Chloride Level 117 MMOL/L (98-107) H Carbon Dioxide Level 29 MMOL/L (21-32) Anion Gap 4 mmol/L (5-15) L Blood Urea Nitrogen 35 mg/dL (7-18) H Creatinine 0.9 MG/DL (0.55-1.30) Estimat Glomerular Filtration Rate > 60 mL/min (>60) Glucose Level 158 MG/DL (74-106) H Calcium Level 7.5 MG/DL (8.5-10.1) L Phosphorus Level 3.0 MG/DL (2.5-4.9) Magnesium Level 1.8 MG/DL (1.8-2.4) Total Bilirubin 0.5 MG/DL (0.2-1.0) Aspartate Amino Transf (AST/SGOT) 40 U/L (15-37) H Alanine Aminotransferase (ALT/SGPT) 118 U/L (12-78) H Alkaline Phosphatase 59 U/L (46-116) Total Protein 4.6 G/DL (6.4-8.2) L Albumin 1.1 G/DL (3.4-5.0) L Globulin 3.5 g/dL Albumin/Globulin Ratio 0.3 (1.0-2.7) L Intake and Output 06/19/20 06/20/20 19:00 07:00 Intake Total 1020 ml 1260 ml Output Total 1255 ml 705 ml Balance -235 ml 555 ml Free Water 200 ml 200 ml IV Total 220 ml Tube Feeding 720 ml 720 ml Other 100 ml 120 ml Output Urine Total 1255 ml 705 ml # Bowel Movements 4 3 Objective General Appearance: WD/WN, no apparent distress, alert EENT: PERRL/EOMI, normal ENT inspection Neck: non-tender, normal alignment, supple, normal inspection Cardiovascular: normal peripheral pulses, normal rate, regular rhythm, no gallop/murmur, no JVD Respiratory/Chest: Mech vent; decreased breath sounds, crackles/rales, rhonchi - bilaterally, expiratory wheezing Abdomen: normal bowel sounds, non tender, soft, no organomegaly, no mass Extremities: normal range of motion Neurologic: junior underwriter II-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 Continue daptomycin per ID=Dr Camejo. Pulmonary/Critical care=DR Allred. COVID NEG (2) Sepsis Assessment & Plan: Staph haemolyticus. Continue amikacin and meropenem per ID= Dr Camejo (3) Down's syndrome (4) Dysphagia Assessment & Plan: S/P PEG (5) Seizure disorder Assessment & Plan: Continue keppra and depakote (6) Hypothyroidism Assessment & Plan: Continue synthroid (7) Acute respiratory failure Assessment & Plan: Pulmonary = Dr Allred; [facility] vent Joni Copeland MD Jun 20, 2020 15:05
--- NOTE | 2020-06-20 16:40 | NUR ---
NURSE NOTES: Cleaned patient for 1 moderate amount of brown soft BM. Turned and repositioned patient. O2 sat 93-95% on FiO2 95%. RR 25. Will continue to monitor.
--- NOTE | 2020-06-20 19:05 | NUR ---
NURSE HAND-OFF REPORT: Latest Vital Signs: Temperature 98.9 , Pulse 59 , B/P 108 /54 , Respiratory Rate 25 , O2 SAT 96 , Mechanical Ventilator, O2 Flow Rate 15.0 . Vital Sign Comment: EKG Rhythm: Sinus Bradycardia Rhythm change?: N MD Notified?: - MD Response: Latest Osorio Fall Score: 70 Fall Risk: High Risk Safety Measures: Call light Within Reach, Bed Alarm Zone 3, Side Rails Side Rails x2, Bed position Low and Locked. Fall Precautions: Yellow Socks Yellow Gown Door Sign Patient Fall Education Report given to Cole Benitez RN.
[2020-06-20] MEDS: Dyna-Hex 2% Top Sol 2oz TOPIC SCH (19:44)
--- NOTE | 2020-06-20 19:45 | NUR ---
NURSE NOTES: PATIENT AWOKE, OPEN EYES, ON ETT TO VENT, AC 26/TV 500/FIO2 95%/PEEP 10, O2 SATURATION 96% NOTED, HR 60'S/MIN, SR NOTED, G TUBE INTACT AND PATENT, ONGOING VITAL AF 1.2 AT 60ML/HR, RESIDUE 40ML NOTED, KEPT HOB OVER 30 DEGREES, ASPIRATION AND SZ PRECAUTION, ABDOMEN SOFT, NON TENDER, F/C INTACT AND PATENT, HARISH COLOR URINE OUTED, PICC LINE TO LEFT UPPER ARM, INTACT AND PATENT, TKO STATUS, ON P200 BED, MADE LOWER BED POSITION, ON BED ALARM AND LOCKED, PLACE CALL LIGHT WITHIN REACH, WILL CONTINUE TO MONITOR.
--- NOTE | 2020-06-20 22:00 | NUR ---
NURSE NOTES: PATIENT AWOKE, NO PAIN OR SOB NOTED AT THIS TIME, NO RESISTANCE TO CARE STATUS, WILL CONTINUE TO MONITOR.
[2020-06-21] VITALS (25 sets, daily range): BP systolic 96–153; BP diastolic 29–102
--- NOTE | 2020-06-21 00:10 | NUR ---
NURSE NOTES: PATIENT AWOKE, VSS, TOLERATED G TUBE FEEDING, MADE CALM ENVIRONMENT, WILL CONTINUE TO MONITOR.
[2020-06-21] MEDS: Amikacin 1,000 MG in NS 110 ML IV SCH (01:51)
--- NOTE | 2020-06-21 02:17 | NUR ---
NURSE NOTES: NO PAIN OR DISTRESS NOTED AT THIS TIME, VSS, WILL CONTINUE PLAN OF CARE.
[2020-06-21] MEDS: Meropenem 1 GM in NS 55 ML IVPB SCH ×3 (03:31→19:47)
--- NOTE | 2020-06-21 04:15 | NUR ---
NURSE NOTES: MORNING CARE AND ORAL CARE WAS DONE, NO BM STATUS, WILL CONTINUE TO MONITOR.
[2020-06-21] MEDS: Midodrine 10mg tab GT SCH ×3 (05:30→21:44)
[2020-06-21] MEDS: Hydrocortisone 100mg Inj IV SCH ×3 (05:30→21:44)
[2020-06-21] MEDS: Valproic Acid 250mg/5ml Liquid GT SCH ×3 (05:30→21:44)
--- NOTE | 2020-06-21 06:30 | NUR ---
NURSE NOTES: PATIENT ASLEEP STATUS, HR 50'S/MIN SB NOTED, NO ACUTE DISTRESS NOTED AT THIS SHIFT.
--- NOTE | 2020-06-21 07:02 | NUR ---
NURSE HAND-OFF REPORT: Latest Vital Signs: Temperature 98.9 , Pulse 57 , B/P 128 /64 , Respiratory Rate 25 , O2 SAT 99 , Mechanical Ventilator, O2 Flow Rate 15.0 . Vital Sign Comment: EKG Rhythm: Sinus Bradycardia Rhythm change?: N MD Notified?: - MD Response: Latest Osorio Fall Score: 70 Fall Risk: High Risk Safety Measures: Call light Within Reach, Bed Alarm Zone 1, Side Rails Side Rails x3, Bed position Low and Locked. Fall Precautions: Yellow Socks Door Sign Patient Fall Education Report given to TAI JIMENEZ.
--- NOTE | 2020-06-21 07:03 | NUR ---
NURSE NOTES: Report received from Cole Benitez RN. Patient is sleeping in bed. Eyes follow. Oriented to name. Non-verbal. Unable to follow commands. Afebrile. SB on monitoring analyst in HR 50's. ETT 7.5/22 cm at lip line. AC 26, TV 500, FiO2 95%, P 10. O2 sat 95-96%. GT in place, receiving Vital AF 1.2 at 60cc/hr. No residual noted. Pitting +2 edema on bilateral upper extremitas and feet noted. Gregorio in place draining to gravity. JODY PICC line patent and asymptomatic, open for TKO. Bed in lowest position. Side rails up x3. Will resume plan of care.
[2020-06-21] MEDS: Norepinephrine Bitartrate 16 MG in D5W 500ml 484 ML IV SCH (07:07)
[2020-06-21 07:33] LABS: HEMATOCRIT 24.4 % (37.0-47.0); HEMOGLOBIN 8.1 G/DL (12.0-16.0); MEAN CORPUSCULAR VOLUME 98 FL (80-99); PLATELET COUNT 164 K/UL (150-450); RED BLOOD COUNT 2.49 M/UL (4.20-5.40)
[2020-06-21 09:01] LABS: ALANINE AMINOTRANSFERASE 77 U/L (12-78); ALBUMIN 1.1 G/DL (3.4-5.0); ALBUMIN/GLOBULIN RATIO 0.3 (1.0-2.7); ALKALINE PHOSPHATASE 54 U/L (46-116); ANION GAP 8 mmol/L (5-15); ASPARTATE AMINO TRANSFERASE 27 U/L (15-37); BILIRUBIN,TOTAL 0.5 MG/DL (0.2-1.0); BLOOD UREA NITROGEN 33 mg/dL (7-18); CALCIUM 7.1 MG/DL (8.5-10.1); CARBON DIOXIDE 27 MMOL/L (21-32); CHLORIDE 120 MMOL/L (98-107); CREATININE 0.8 MG/DL (0.55-1.30); PHOSPHORUS 2.3 MG/DL (2.5-4.9); POTASSIUM 3.1 MMOL/L (3.5-5.1); SODIUM 155 MMOL/L (136-145)
[2020-06-21] MEDS: Pantoprazole Inj IV SCH (09:01)
--- NOTE | 2020-06-21 09:26 | Pulmonolgy Critical Care Note ---
Critical Care - Asmt/Plan Problems: (1) Acute respiratory failure (2) Bacteremia (3) Pneumonia (4) Sepsis (5) HCAP (healthcare-associated pneumonia) (6) Seizure disorder (7) Down's syndrome Respiratory: monitor respiratory rate, adjust FIO2 Cardiac: continue to monitor HR/BP Renal: F/U I&O, keep IV fluid, check electrolytes Infectious Disease: check cultures Gastrointestinal: continue feedings/current rate Endocrine: monitor blood sugar, continue sliding scale insulin Hematologic: transfuse if hgb<8.5 Neurologic: PRN Ativan, keep patient comfortable Affect: PRN ativan Time Spent (Minutes): 40 Notes Reviewed: cardio, 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 with: nurses, 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, 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 - Objective Last 24 Hour Vital Signs Date Time Temp Pulse Resp B/P (MAP) Pulse Ox O2 Delivery O2 Flow Rate FiO2 06/21/20 08:10 80 06/21/20 07:26 51 26 80 06/21/20 07:00 47 26 140/69 (92) 99 06/21/20 06:13 57 25 128/64 (85) 99 06/21/20 06:00 55 26 128/102 (111) 99 06/21/20 05:00 68 23 114/85 (95) 98 06/21/20 04:00 Mechanical Ventilator Mechanical Ventilator 06/21/20 04:00 98.9 72 24 114/90 (98) 99 06/21/20 04:00 72 06/21/20 04:00 95 06/21/20 03:30 48 26 95 06/21/20 03:00 70 24 153/77 (102) 99 06/21/20 02:00 64 24 106/80 (89) 99 06/21/20 01:00 62 23 109/61 (77) 97 06/21/20 00:05 64 26 95 06/21/20 00:00 98.6 60 24 106/59 (75) 98 06/21/20 00:00 Mechanical Ventilator Mechanical Ventilator 06/21/20 00:00 60 06/21/20 00:00 95 06/20/20 23:00 61 22 111/67 (82) 98 06/20/20 22:00 64 21 105/64 (78) 99 06/20/20 21:00 58 25 105/56 (72) 98 06/20/20 20:00 98.7 58 26 98/52 (67) 96 06/20/20 20:00 95 06/20/20 20:00 Mechanical Ventilator Mechanical Ventilator 06/20/20 19:29 59 06/20/20 19:25 66 26 95 06/20/20 19:00 59 25 108/54 (72) 96 06/20/20 19:00 71 24 95/49 (64) 97 06/20/20 18:00 71 24 95/49 (64) 97 06/20/20 17:00 61 26 98/59 (72) 95 06/20/20 16:00 60 06/20/20 16:00 95 06/20/20 16:00 98.9 53 26 105/72 (83) 95 06/20/20 16:00 Mechanical Ventilator Mechanical Ventilator 06/20/20 15:28 69 26 95 06/20/20 15:00 47 26 94/52 (66) 94 06/20/20 14:00 51 26 101/52 (68) 94 06/20/20 13:00 62 26 105/56 (72) 96 06/20/20 12:00 98.8 64 25 106/51 (69) 96 06/20/20 12:00 Mechanical Ventilator Mechanical Ventilator 06/20/20 12:00 95 06/20/20 12:00 63 06/20/20 11:28 63 26 95 06/20/20 11:00 62 23 97/56 (70) 92 06/20/20 10:00 69 23 107/54 (71) 92 Status: awake Condition: critical HEENT: atraumatic, normocephalic Lungs: rales, rhonchi Heart: HR/BP stable Abdomen: soft Extremities: no C/C/E Accucheck: 131 Critical Care - Subjective ROS Limited/Unobtainable: Yes FI02: 80 Vent Support Breath Rate: 26 Vent Support Mode: AC Vent Tidal Volume: 500 Sputum Amount: Moderate PEEP: 10.0 PIP: 49 Tube Feeding Amount: 60 I&O: Intake and Output 06/20/20 06/21/20 19:00 07:00 Intake Total 905 ml 1204 ml Output Total 730 ml 800 ml Balance 175 ml 404 ml IV Total 255 ml 224 ml Tube Feeding 600 ml 780 ml Other 50 ml 200 ml Output Urine Total 730 ml 800 ml # Bowel Movements 3 ET-Tube: 7.5 ET Position: 22 Labs: Laboratory Tests Test 06/21/20 05:35 White Blood Count 12.0 K/UL (4.8-10.8) H Red Blood Count 2.49 M/UL (4.20-5.40) L Hemoglobin 8.1 G/DL (12.0-16.0) L Hematocrit 24.4 % (37.0-47.0) L Mean Corpuscular Volume 98 FL (80-99) Mean Corpuscular Hemoglobin 32.7 PG (27.0-31.0) H Mean Corpuscular Hemoglobin Concent 33.4 G/DL (32.0-36.0) Red Cell Distribution Width 15.0 % (11.6-14.8) H Platelet Count 164 K/UL (150-450) Mean Platelet Volume 8.8 FL (6.5-10.1) Neutrophils (%) (Auto) % (45.0-75.0) Lymphocytes (%) (Auto) % (20.0-45.0) Monocytes (%) (Auto) % (1.0-10.0) Eosinophils (%) (Auto) % (0.0-3.0) Basophils (%) (Auto) % (0.0-2.0) Neutrophils % (Manual) Pending Lymphocytes % (Manual) Pending Platelet Estimate Pending Platelet Morphology Pending Erythrocyte Sedimentation Rate Pending Sodium Level 155 MMOL/L (136-145) H Potassium Level 3.1 MMOL/L (3.5-5.1) L Chloride Level 120 MMOL/L (98-107) H Carbon Dioxide Level 27 MMOL/L (21-32) Anion Gap 8 mmol/L (5-15) Blood Urea Nitrogen 33 mg/dL (7-18) H Creatinine 0.8 MG/DL (0.55-1.30) Estimat Glomerular Filtration Rate > 60 mL/min (>60) Glucose Level 182 MG/DL (74-106) H Calcium Level 7.1 MG/DL (8.5-10.1) L Phosphorus Level 2.3 MG/DL (2.5-4.9) L Magnesium Level 1.8 MG/DL (1.8-2.4) Total Bilirubin 0.5 MG/DL (0.2-1.0) Aspartate Amino Transf (AST/SGOT) 27 U/L (15-37) Alanine Aminotransferase (ALT/SGPT) 77 U/L (12-78) Alkaline Phosphatase 54 U/L (46-116) C-Reactive Protein, Quantitative 1.9 mg/dL (0.00-0.90) H Total Protein 4.4 G/DL (6.4-8.2) L Albumin 1.1 G/DL (3.4-5.0) L Globulin 3.3 g/dL Albumin/Globulin Ratio 0.3 (1.0-2.7) L Elayne Allred MD Jun 21, 2020 09:26
--- NOTE | 2020-06-21 09:40 | NUR ---
NURSE NOTES: Turned and repositioned patient. Oral care done. Suctioned small amount of clear and white thick secretion. Will continue to monitor.
[2020-06-21] MEDS: DOPamine 400mg/250ml 250 ML IV SCH (11:15)
--- NOTE | 2020-06-21 12:03 | NUR ---
NURSE NOTES: Turned and repositioned patient. Oral are done. BP 145/71, HR 58, O2 sat 95% on FiO2 80%. No signs and symptoms of pain or discomfort noted. Will continue to monitor.
--- NOTE | 2020-06-21 12:35 | NUR ---
NURSE NOTES: Dr Pantoja here to see the patient. Updated him with patient's current condition. Notified him that patient does rafael lowest 47 when she sleeps. No new orders.
--- NOTE | 2020-06-21 12:35 | Cardiology Progress Note ---
Assessment/Plan Assessment/Plan sepsis respiratory failure ards renal insuf bacteremia abn cardiac enzyme due to demand sinus rafael stable thrombocytopenia resolved hypernatremia vent support abx wbc improved na increased still 3rd spacing alot cxr form 06/18 reviewed tsh seems fine sig edema with hypernatremia need nauteresis eventually remains off pressor hr inthe 40's-60's no sig pauses on tlee tele personally reviewed Subjective ROS Limited/Unobtainable: Yes Subjective on a vent not communicative Objective Last 24 Hour Vital Signs Date Time Temp Pulse Resp B/P (MAP) Pulse Ox O2 Delivery O2 Flow Rate FiO2 06/21/20 12:00 80 06/21/20 12:00 Mechanical Ventilator Mechanical Ventilator 06/21/20 12:00 58 21 145/71 (95) 95 06/21/20 11:39 59 26 80 06/21/20 11:00 56 23 138/68 (91) 94 06/21/20 10:00 60 23 123/93 (103) 95 06/21/20 09:00 51 26 115/91 (99) 95 06/21/20 08:10 80 06/21/20 08:00 97.9 49 26 144/70 (94) 98 06/21/20 08:00 Mechanical Ventilator Mechanical Ventilator 06/21/20 07:43 52 06/21/20 07:26 51 26 80 06/21/20 07:00 47 26 140/69 (92) 99 06/21/20 06:13 57 25 128/64 (85) 99 06/21/20 06:00 55 26 128/102 (111) 99 06/21/20 05:00 68 23 114/85 (95) 98 06/21/20 04:00 Mechanical Ventilator Mechanical Ventilator 06/21/20 04:00 98.9 72 24 114/90 (98) 99 06/21/20 04:00 72 06/21/20 04:00 95 06/21/20 03:30 48 26 95 06/21/20 03:00 70 24 153/77 (102) 99 06/21/20 02:00 64 24 106/80 (89) 99 06/21/20 01:00 62 23 109/61 (77) 97 06/21/20 00:05 64 26 95 06/21/20 00:00 98.6 60 24 106/59 (75) 98 06/21/20 00:00 Mechanical Ventilator Mechanical Ventilator 06/21/20 00:00 60 06/21/20 00:00 95 06/20/20 23:00 61 22 111/67 (82) 98 06/20/20 22:00 64 21 105/64 (78) 99 06/20/20 21:00 58 25 105/56 (72) 98 06/20/20 20:00 98.7 58 26 98/52 (67) 96 06/20/20 20:00 95 06/20/20 20:00 Mechanical Ventilator Mechanical Ventilator 06/20/20 19:29 59 06/20/20 19:25 66 26 95 06/20/20 19:00 59 25 108/54 (72) 96 06/20/20 19:00 71 24 95/49 (64) 97 06/20/20 18:00 71 24 95/49 (64) 97 06/20/20 17:00 61 26 98/59 (72) 95 06/20/20 16:00 60 06/20/20 16:00 95 06/20/20 16:00 98.9 53 26 105/72 (83) 95 06/20/20 16:00 Mechanical Ventilator Mechanical Ventilator 06/20/20 15:28 69 26 95 06/20/20 15:00 47 26 94/52 (66) 94 06/20/20 14:00 51 26 101/52 (68) 94 06/20/20 13:00 62 26 105/56 (72) 96 General Appearance: on vent, patient on isolation, other - awake Cardiovascular: normal rate Respiratory/Chest: lungs clear Abdomen: non tender, soft Extremities: moderate edema Intake and Output 06/20/20 06/21/20 19:00 07:00 Intake Total 905 ml 1204 ml Output Total 730 ml 800 ml Balance 175 ml 404 ml IV Total 255 ml 224 ml Tube Feeding 600 ml 780 ml Other 50 ml 200 ml Output Urine Total 730 ml 800 ml # Bowel Movements 3 Laboratory Tests Test 06/21/20 05:35 White Blood Count 12.0 K/UL (4.8-10.8) H Red Blood Count 2.49 M/UL (4.20-5.40) L Hemoglobin 8.1 G/DL (12.0-16.0) L Hematocrit 24.4 % (37.0-47.0) L Mean Corpuscular Volume 98 FL (80-99) Mean Corpuscular Hemoglobin 32.7 PG (27.0-31.0) H Mean Corpuscular Hemoglobin Concent 33.4 G/DL (32.0-36.0) Red Cell Distribution Width 15.0 % (11.6-14.8) H Platelet Count 164 K/UL (150-450) Mean Platelet Volume 8.8 FL (6.5-10.1) Neutrophils (%) (Auto) % (45.0-75.0) Lymphocytes (%) (Auto) % (20.0-45.0) Monocytes (%) (Auto) % (1.0-10.0) Eosinophils (%) (Auto) % (0.0-3.0) Basophils (%) (Auto) % (0.0-2.0) Differential Total Cells Counted 100 Neutrophils % (Manual) 89 % (45-75) H Lymphocytes % (Manual) 7 % (20-45) L Monocytes % (Manual) 4 % (1-10) Eosinophils % (Manual) 0 % (0-3) Basophils % (Manual) 0 % (0-2) Band Neutrophils 0 % (0-8) Platelet Estimate Adequate Platelet Morphology Normal Hypochromasia 2+ Anisocytosis 1+ Erythrocyte Sedimentation Rate 35 MM/HR (0-30) H Sodium Level 155 MMOL/L (136-145) H Potassium Level 3.1 MMOL/L (3.5-5.1) L Chloride Level 120 MMOL/L (98-107) H Carbon Dioxide Level 27 MMOL/L (21-32) Anion Gap 8 mmol/L (5-15) Blood Urea Nitrogen 33 mg/dL (7-18) H Creatinine 0.8 MG/DL (0.55-1.30) Estimat Glomerular Filtration Rate > 60 mL/min (>60) Glucose Level 182 MG/DL (74-106) H Calcium Level 7.1 MG/DL (8.5-10.1) L Phosphorus Level 2.3 MG/DL (2.5-4.9) L Magnesium Level 1.8 MG/DL (1.8-2.4) Total Bilirubin 0.5 MG/DL (0.2-1.0) Aspartate Amino Transf (AST/SGOT) 27 U/L (15-37) Alanine Aminotransferase (ALT/SGPT) 77 U/L (12-78) Alkaline Phosphatase 54 U/L (46-116) C-Reactive Protein, Quantitative 1.9 mg/dL (0.00-0.90) H Total Protein 4.4 G/DL (6.4-8.2) L Albumin 1.1 G/DL (3.4-5.0) L Globulin 3.3 g/dL Albumin/Globulin Ratio 0.3 (1.0-2.7) L Josue Pantoja MD Jun 21, 2020 12:35
[2020-06-21] MEDS ORDERED: Potassium Phosphate 20 MM in NS 275 ML IV ONE (14:00)
--- NOTE | 2020-06-21 14:04 | Nephrology Progress Note ---
Assessment/Plan Problem List: (1) LEANN (acute kidney injury) (2) Respiratory failure requiring intubation (3) Down's syndrome (4) Seizure disorder (5) Hypothyroidism Assessment Acute renal failure, likely due to hypotension Acute respiratory distress, hypoxia Seizure disorder Hypothyroidism Down syndrome Full code Fluid challenge with IV fluids and albumin Midodrine for BP above 100 systolic Check TSH level Check Correct level Monitor renal parameters Urine studies Per orders Plan June 21: Lab reviewed. Abnormal electrolytes noted and addressed. June 20: Labs reviewed. Potassium supplement given. Patient remains full code. Continue per consultants. June 19: Lab reviewed. Electrolyte abnormalities addressed. Continue per pulmonary and ID. June 18: Lab reviewed. Status unchanged. Serum sodium 151 unchanged. Stable from renal standpoint of view. June 17: Labs reviewed. Status quo. D5W 500 cc IV ordered. Continue to monitor renal parameters. June 16: Status quo. Labs reviewed. Overall condition unchanged. Patient was transfused and hemoglobin higher. Continue current management. Patient remains full code. June 15: Status quo. Overall condition poor. Very low albumin. Edematous. Hypotensive. Hemoglobin lower. Anemia work-up ordered. I favor transfusion 2 units of packed RBCs. Patient remains full code. I favor supportive care only. Will discuss. June 14: Electrolyte abnormalities addressed. Serum creatinine lower. Continue per current management. June 13: Status unchanged. Lab reviewed. Serum potassium 2.7. IV potassium chloride ordered. Serum creatinine low at 1.6 stable. Blood pressure 90s systolic June 12: Status quo. Labs reviewed. Renal parameters stable. Serum creatinine down to 1.6. Medication list reviewed. Continues to be on midodrine. Continue per consultants. June 11: Status quo. Labs reviewed. Electrolytes adjusted. Serum creatinine down to 1.8. Continue per consultants. June 10: Status quo. Labs reviewed. Phosphorus supplement IV given. Serum creatinine 2. Continue per consultants. June 09: Requires less pressors. Albumin bolus given. 1 dose of Lasix IV ordered as the patient severely edematous. Patient serum albumin is very low. Continue per consultants. June 08: Continues to be intubated. Labs reviewed. Serum creatinine 1.9 unchanged. Blood pressure more stable. Off 1 of the pressors. Continue to monitor renal parameters. Continue per consultants. Patient now on hydrocortisone 100 mg every 8 hours. Will decrease IV fluid. Normal saline down to 50 cc an hour. June 07: Intubated. Labs reviewed. Creatinine 1.9 unchanged. Continue same treatment plan. Per consultants. Overall poor prognosis since the patient remains on pressors and her pulmonary status is worsening. June 06: Remains intubated. Labs reviewed. Creatinine 1.9. Blood pressure systolic 90s. Continue per consultants. June 05: Remains intubated. Labs reviewed. Serum creatinine lower to 2. Vancomycin level lower. Remains hypotensive on pressors. Will increase midodrine to 10 mg every 8 hours. Continue per consultants. Continue to monitor renal parameters. June 04: Patient now in ICU. Intubated. On pressors. Labs reviewed. Will increase midodrine. Aim to keep blood pressure over 100 systolic. Will give albumin bolus. Will check vancomycin level which was elevated when checked previously on June 01. Will monitor renal parameters. Continue per consultants. Subjective ROS Limited/Unobtainable: Yes Objective Objective Last 24 Hour Vital Signs Date Time Temp Pulse Resp B/P (MAP) Pulse Ox O2 Delivery O2 Flow Rate FiO2 06/21/20 12:00 80 06/21/20 12:00 Mechanical Ventilator Mechanical Ventilator 06/21/20 12:00 58 21 145/71 (95) 95 06/21/20 11:39 59 26 80 06/21/20 11:00 56 23 138/68 (91) 94 06/21/20 10:00 60 23 123/93 (103) 95 06/21/20 09:00 51 26 115/91 (99) 95 06/21/20 08:10 80 06/21/20 08:00 97.9 49 26 144/70 (94) 98 06/21/20 08:00 Mechanical Ventilator Mechanical Ventilator 06/21/20 07:43 52 06/21/20 07:26 51 26 80 06/21/20 07:00 47 26 140/69 (92) 99 06/21/20 06:13 57 25 128/64 (85) 99 06/21/20 06:00 55 26 128/102 (111) 99 06/21/20 05:00 68 23 114/85 (95) 98 06/21/20 04:00 Mechanical Ventilator Mechanical Ventilator 06/21/20 04:00 98.9 72 24 114/90 (98) 99 06/21/20 04:00 72 06/21/20 04:00 95 06/21/20 03:30 48 26 95 06/21/20 03:00 70 24 153/77 (102) 99 06/21/20 02:00 64 24 106/80 (89) 99 06/21/20 01:00 62 23 109/61 (77) 97 06/21/20 00:05 64 26 95 06/21/20 00:00 98.6 60 24 106/59 (75) 98 06/21/20 00:00 Mechanical Ventilator Mechanical Ventilator 06/21/20 00:00 60 06/21/20 00:00 95 06/20/20 23:00 61 22 111/67 (82) 98 06/20/20 22:00 64 21 105/64 (78) 99 06/20/20 21:00 58 25 105/56 (72) 98 06/20/20 20:00 98.7 58 26 98/52 (67) 96 06/20/20 20:00 95 06/20/20 20:00 Mechanical Ventilator Mechanical Ventilator 06/20/20 19:29 59 06/20/20 19:25 66 26 95 06/20/20 19:00 59 25 108/54 (72) 96 06/20/20 19:00 71 24 95/49 (64) 97 06/20/20 18:00 71 24 95/49 (64) 97 06/20/20 17:00 61 26 98/59 (72) 95 06/20/20 16:00 60 06/20/20 16:00 95 06/20/20 16:00 98.9 53 26 105/72 (83) 95 06/20/20 16:00 Mechanical Ventilator Mechanical Ventilator 06/20/20 15:28 69 26 95 06/20/20 15:00 47 26 94/52 (66) 94 Intake and Output 06/20/20 06/21/20 19:00 07:00 Intake Total 905 ml 1204 ml Output Total 730 ml 800 ml Balance 175 ml 404 ml IV Total 255 ml 224 ml Tube Feeding 600 ml 780 ml Other 50 ml 200 ml Output Urine Total 730 ml 800 ml # Bowel Movements 3 Laboratory Tests 06/21/20 05:35: White Blood Count 12.0H, Red Blood Count 2.49L, Hemoglobin 8.1L, Hematocrit 24.4L, Mean Corpuscular Volume 98, Mean Corpuscular Hemoglobin 32.7H, Mean Corpuscular Hemoglobin Concent 33.4, Red Cell Distribution Width 15.0H, Platelet Count 164, Mean Platelet Volume 8.8, Neutrophils (%) (Auto) , Lymphocytes (%) (Auto) , Monocytes (%) (Auto) , Eosinophils (%) (Auto) , Basophils (%) (Auto) , Differential Total Cells Counted 100, Neutrophils % ( Manual) 89H, Lymphocytes % (Manual) 7L, Monocytes % (Manual) 4, Eosinophils % ( Manual) 0, Basophils % (Manual) 0, Band Neutrophils 0, Platelet Estimate Adequate, Platelet Morphology Normal, Hypochromasia 2+, Anisocytosis 1+, Erythrocyte Sedimentation Rate 35H, Sodium Level 155H, Potassium Level 3.1L, Chloride Level 120H, Carbon Dioxide Level 27, Anion Gap 8, Blood Urea Nitrogen 33H, Creatinine 0.8, Estimat Glomerular Filtration Rate > 60, Glucose Level 182H , Calcium Level 7.1L, Phosphorus Level 2.3L, Magnesium Level 1.8, Total Bilirubin 0.5, Aspartate Amino Transf (AST/SGOT) 27, Alanine Aminotransferase ( ALT/SGPT) 77, Alkaline Phosphatase 54, C-Reactive Protein, Quantitative 1.9H, Total Protein 4.4L, Albumin 1.1L, Globulin 3.3, Albumin/Globulin Ratio 0.3L Height (Feet): 5 Height (Inches): 3.00 Weight (Pounds): 172 General Appearance: no apparent distress EENT: other - Intubated on ventilator Cardiovascular: normal rate Respiratory/Chest: decreased breath sounds Abdomen: soft Keron Pitt MD Jun 21, 2020 14:04
--- NOTE | 2020-06-21 14:30 | NUR ---
NURSE NOTES: Patient is sleeping. Turned and repositioned patient. Oral care done. No signs of pain or discomfort noted. O2 sat 92% on FiO2 80%. SB with HR 47 on clinical research monitor. Will continue to monitor.
--- NOTE | 2020-06-21 15:37 | Internal Med Progress Note ---
Subjective Date of Service: Jun 21, 2020 Physician Name Joni Copeland Attending Physician Elayne Allred MD Current Medications Medications (Trade) Dose Ordered Sig/Katy Route PRN Reason Start Time Stop Time Status Last Admin Dose Admin Acetaminophen (Tylenol) 650 mg Q4H PRN GT FEVER 06/03/20 11:45 07/03/20 11:44 06/15/20 03:17 Amikacin Protocol (Amikacin pharmacy to dose) 1 ea DAILY PRN MISC Per rx protocol 06/16/20 12:00 07/16/20 11:59 Amikacin Sulfate 1000 mg/Sodium Chloride 114 ml @ 114 mls/hr Q36H IV 06/16/20 14:00 06/23/20 13:59 06/21/20 01:51 Chlorhexidine Gluconate (Alla-Hex 2%) 1 applic DAILY@1999 TOPIC 06/08/20 20:00 09/06/20 19:59 06/20/20 19:44 Clotrimazole (Lotrimin) 1 applic Q12HR TOPIC 06/07/20 13:00 09/05/20 12:59 06/21/20 09:01 Dextrose (Dextrose 50%) 25 ml Q30M PRN IV Hypoglycemia 06/03/20 11:30 08/28/20 11:29 Dextrose (Dextrose 50%) 50 ml Q30M PRN IV Hypoglycemia 06/03/20 11:30 08/28/20 11:29 Dopamine HCl/ Dextrose 250 ml @ 0 mls/hr Q24H IV 06/12/20 11:15 09/10/20 11:14 06/14/20 19:47 Hydrocortisone (Solu-CORTEF) 100 mg EVERY 8 HOURS IV 06/07/20 14:00 09/05/20 13:59 06/21/20 14:36 Levothyroxine Sodium (Synthroid) 75 mcg DAILY GT 06/04/20 09:00 06/30/20 08:59 06/21/20 09:01 Meropenem 1 gm/ Sodium Chloride 55 ml @ 110 mls/hr Q8H IVPB 06/14/20 12:00 06/24/20 23:59 06/21/20 11:55 Midodrine (Pro-Amatine) 10 mg Q8HR GT 06/05/20 14:00 09/03/20 13:59 06/21/20 14:35 Norepinephrine Bitartrate 16 mg/ Dextrose 500 ml @ 0 mls/hr Q24H IV 06/08/20 07:45 07/07/20 12:59 06/12/20 08:43 Ondansetron HCl (Zofran) 4 mg Q6H PRN IVP Nausea & Vomiting 06/03/20 12:00 06/29/20 11:59 Pantoprazole (Protonix) 40 mg DAILY IV 06/04/20 09:00 06/30/20 08:59 06/21/20 09:01 Phenylephrine HCl 50 mg/Dextrose 250 ml @ 0 mls/hr Q24H PRN IV For hypotension 06/06/20 17:45 07/06/20 17:44 06/08/20 01:49 Polyethylene Glycol (Miralax) 17 gm DAILYPRN PRN GT Constipation 06/03/20 12:00 06/29/20 11:59 Potassium Phosphate 20 mm/ Sodium Chloride 281.6667 ml @ 46.944 m... ONCE ONCE IV 06/21/20 14:00 06/21/20 19:59 06/21/20 14:35 Valproic Acid (Depakene) 500 mg EVERY 8 HOURS GT 06/03/20 14:00 06/29/20 21:59 06/21/20 14:35 Allergies: Coded Allergies: No Known Allergies (Unverified , 10/16/18) ROS Limited/Unobtainable: Yes Subjective 59 YO F with Down's syndrome admitted with hypoxia. Now sepsis and pneumonia. Cover for Int Med-[facility]. ICU. Intubated and sedated Objective Last Vital Signs Date Time Temp Pulse Resp B/P (MAP) Pulse Ox O2 Delivery O2 Flow Rate FiO2 06/21/20 15:33 75 26 80 06/21/20 12:00 Mechanical Ventilator Mechanical Ventilator 06/21/20 12:00 145/71 (95) 95 06/21/20 08:00 97.9 Laboratory Tests Test 06/21/20 05:35 White Blood Count 12.0 K/UL (4.8-10.8) H Red Blood Count 2.49 M/UL (4.20-5.40) L Hemoglobin 8.1 G/DL (12.0-16.0) L Hematocrit 24.4 % (37.0-47.0) L Mean Corpuscular Volume 98 FL (80-99) Mean Corpuscular Hemoglobin 32.7 PG (27.0-31.0) H Mean Corpuscular Hemoglobin Concent 33.4 G/DL (32.0-36.0) Red Cell Distribution Width 15.0 % (11.6-14.8) H Platelet Count 164 K/UL (150-450) Mean Platelet Volume 8.8 FL (6.5-10.1) Neutrophils (%) (Auto) % (45.0-75.0) Lymphocytes (%) (Auto) % (20.0-45.0) Monocytes (%) (Auto) % (1.0-10.0) Eosinophils (%) (Auto) % (0.0-3.0) Basophils (%) (Auto) % (0.0-2.0) Differential Total Cells Counted 100 Neutrophils % (Manual) 89 % (45-75) H Lymphocytes % (Manual) 7 % (20-45) L Monocytes % (Manual) 4 % (1-10) Eosinophils % (Manual) 0 % (0-3) Basophils % (Manual) 0 % (0-2) Band Neutrophils 0 % (0-8) Platelet Estimate Adequate Platelet Morphology Normal Hypochromasia 2+ Anisocytosis 1+ Erythrocyte Sedimentation Rate 35 MM/HR (0-30) H Sodium Level 155 MMOL/L (136-145) H Potassium Level 3.1 MMOL/L (3.5-5.1) L Chloride Level 120 MMOL/L (98-107) H Carbon Dioxide Level 27 MMOL/L (21-32) Anion Gap 8 mmol/L (5-15) Blood Urea Nitrogen 33 mg/dL (7-18) H Creatinine 0.8 MG/DL (0.55-1.30) Estimat Glomerular Filtration Rate > 60 mL/min (>60) Glucose Level 182 MG/DL (74-106) H Calcium Level 7.1 MG/DL (8.5-10.1) L Phosphorus Level 2.3 MG/DL (2.5-4.9) L Magnesium Level 1.8 MG/DL (1.8-2.4) Total Bilirubin 0.5 MG/DL (0.2-1.0) Aspartate Amino Transf (AST/SGOT) 27 U/L (15-37) Alanine Aminotransferase (ALT/SGPT) 77 U/L (12-78) Alkaline Phosphatase 54 U/L (46-116) C-Reactive Protein, Quantitative 1.9 mg/dL (0.00-0.90) H Total Protein 4.4 G/DL (6.4-8.2) L Albumin 1.1 G/DL (3.4-5.0) L Globulin 3.3 g/dL Albumin/Globulin Ratio 0.3 (1.0-2.7) L Intake and Output 06/20/20 06/21/20 19:00 07:00 Intake Total 905 ml 1204 ml Output Total 730 ml 800 ml Balance 175 ml 404 ml IV Total 255 ml 224 ml Tube Feeding 600 ml 780 ml Other 50 ml 200 ml Output Urine Total 730 ml 800 ml # Bowel Movements 3 Objective General Appearance: WD/WN, no apparent distress, alert EENT: PERRL/EOMI, normal ENT inspection Neck: non-tender, normal alignment, supple, normal inspection Cardiovascular: normal peripheral pulses, normal rate, regular rhythm, no gallop/murmur, no JVD Respiratory/Chest: Mech vent; decreased breath sounds, crackles/rales, rhonchi - bilaterally, expiratory wheezing Abdomen: normal bowel sounds, non tender, soft, no organomegaly, no mass Extremities: normal range of motion Neurologic: tray filler II-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 Continue daptomycin per ID=Dr Camejo. Pulmonary/Critical care=DR Allred. COVID NEG (2) Sepsis Assessment & Plan: Staph haemolyticus. Continue amikacin and meropenem per ID= Dr Camejo (3) Down's syndrome (4) Dysphagia Assessment & Plan: S/P PEG (5) Seizure disorder Assessment & Plan: Continue keppra and depakote (6) Hypothyroidism Assessment & Plan: Continue synthroid (7) Acute respiratory failure Assessment & Plan: Pulmonary = Dr Allred; [facility] vent Joni Copeland MD Jun 21, 2020 15:37
--- NOTE | 2020-06-21 17:50 | NUR ---
NURSE NOTES: Cleaned patient for small amount of soft brown BM. Turned and repositioned patient. Will continue to monitor.
--- NOTE | 2020-06-21 19:30 | NUR ---
NURSE HAND-OFF REPORT: Latest Vital Signs: Temperature 98.1 , Pulse 51 , B/P 120 /72 , Respiratory Rate 26 , O2 SAT 94 , Mechanical Ventilator, O2 Flow Rate 15.0 . Vital Sign Comment: EKG Rhythm: Sinus Bradycardia Rhythm change?: N MD Notified?: - MD Response: Latest Osorio Fall Score: 70 Fall Risk: High Risk Safety Measures: Call light Within Reach, Bed Alarm Zone 1, Side Rails Side Rails x3, Bed position Low and Locked. Fall Precautions: Yellow Socks Door Sign Patient Fall Education Report given to Cole Benitez RN .
--- NOTE | 2020-06-21 19:45 | NUR ---
NURSE NOTES: PATIENT AWOKE, OPEN EYES, DID NOT FOLLOW COMMANS, ON ETT TO VENT, AC 26/TV 500/FIO2 80%/PEEP 10, O2 SATURATION 97% NOTED, HR 60'S/MIN, SR NOTED, G TUBE INTACT AND PATENT, ONGOING VITAL AF 1.2 AT 60ML/HR, RESIDUE 30ML NOTED, KEPT HOB OVER 30 DEGREES, ASPIRATION AND SZ PRECAUTION, ABDOMEN SOFT, NON TENDER, F/C INTACT AND PATENT, HARISH COLOR URINE OUTED, PICC LINE TO LEFT UPPER ARM, INTACT AND PATENT, TKO STATUS, ON P200 BED, MADE LOWER BED POSITION, ON BED ALARM AND LOCKED, PLACE CALL LIGHT WITHIN REACH, WILL CONTINUE TO MONITOR.
[2020-06-21] MEDS: Dyna-Hex 2% Top Sol 2oz TOPIC SCH (19:47)
--- NOTE | 2020-06-21 21:50 | NUR ---
NURSE NOTES: PATIENT AWOKE, WATCHING TV STATUS, NO PAIN OR SOB NOTED AT THIS TIME, WILL CONTINUE TO MONITOR.
[2020-06-21] MEDS ORDERED: D5W 550ml IV ONE (22:51)
[2020-06-21] MEDS ORDERED: NS 275ml ONE (22:51)
[2020-06-21] MEDS ORDERED: Tubing IV Secondary IV ONE ×2 (22:51→22:52)
[2020-06-21] MEDS ORDERED: D5NS 1000ml IV ONE (22:52)
--- NOTE | 2020-06-21 23:55 | NUR ---
NURSE NOTES: PATIENT CALM, VSS, TOLERATED G TUBE FEEDING, KEPT HOB 30 DEGREES AND ASPIRATION PRECAUTION, WILL CONTINUE TO MONITOR.
[2020-06-22] VITALS (24 sets, daily range): BP systolic 93–139; BP diastolic 45–104
--- NOTE | 2020-06-22 02:10 | NUR ---
NURSE NOTES: PATIENT AWOKE STATUS, MADE CALM ENVIRONMENT, VSS, WILL CONTINUE TO MONITOR.
[2020-06-22] MEDS: Meropenem 1 GM in NS 55 ML IVPB SCH ×2 (03:35→13:00)
--- NOTE | 2020-06-22 04:30 | NUR ---
NURSE NOTES: LE; MORNING CARE WAS DONE, INSERTED RECTAL TUBE DUE TO DIARRHEA, WILL CONTINUE TO MONITOR.
[2020-06-22] MEDS: Hydrocortisone 100mg Inj IV SCH ×3 (05:56→21:40)
[2020-06-22] MEDS: Valproic Acid 250mg/5ml Liquid GT SCH ×3 (05:57→21:41)
[2020-06-22] MEDS: Midodrine 10mg tab GT SCH ×3 (05:57→21:40)
--- NOTE | 2020-06-22 06:40 | NUR ---
NURSE NOTES: PATIENT ASLEEP STATUS, NO ACUTE DISTRESS NOTED AT THIS SHIFT.
--- NOTE | 2020-06-22 07:20 | NUR ---
NURSE HAND-OFF REPORT: Latest Vital Signs: Temperature 99.1 , Pulse 45 , B/P 134 /71 , Respiratory Rate 26 , O2 SAT 100 , Mechanical Ventilator, O2 Flow Rate 15.0 . Vital Sign Comment: EKG Rhythm: Sinus Bradycardia Rhythm change?: N MD Notified?: - MD Response: Latest Osorio Fall Score: 70 Fall Risk: High Risk Safety Measures: Call light Within Reach, Bed Alarm Zone 1, Side Rails Side Rails x3, Bed position Low and Locked. Fall Precautions: Yellow Socks Door Sign Patient Fall Education Report given to PEDRO FUCHS RN.
[2020-06-22 07:30] LABS: HEMATOCRIT 24.6 % (37.0-47.0); HEMOGLOBIN 8.1 G/DL (12.0-16.0); MEAN CORPUSCULAR VOLUME 99 FL (80-99); PLATELET COUNT 166 K/UL (150-450); RED BLOOD COUNT 2.49 M/UL (4.20-5.40); RED CELL DISTRIBUTION WIDTH 15.4 % (11.6-14.8); WHITE BLOOD COUNT 12.9 K/UL (4.8-10.8)
[2020-06-22 07:42] LABS: ALANINE AMINOTRANSFERASE 69 U/L (12-78); ALBUMIN 1.1 G/DL (3.4-5.0); ALBUMIN/GLOBULIN RATIO 0.3 (1.0-2.7); ALKALINE PHOSPHATASE 52 U/L (46-116); ANION GAP 9 mmol/L (5-15); ASPARTATE AMINO TRANSFERASE 26 U/L (15-37); BILIRUBIN,TOTAL 0.4 MG/DL (0.2-1.0); BLOOD UREA NITROGEN 32 mg/dL (7-18); CARBON DIOXIDE 28 MMOL/L (21-32); CHLORIDE 120 MMOL/L (98-107); CREATININE 0.8 MG/DL (0.55-1.30); PHOSPHORUS 2.7 MG/DL (2.5-4.9); POTASSIUM 3.1 MMOL/L (3.5-5.1); SODIUM 156 MMOL/L (136-145)
[2020-06-22] MEDS: Norepinephrine Bitartrate 16 MG in D5W 500ml 484 ML IV SCH (07:45)
--- NOTE | 2020-06-22 10:00 | NUR ---
NURSE NOTES: Patient stable, opening eyes and making eye contact. Patient stable with no s/sx of pain or distress.
--- NOTE | 2020-06-22 10:42 | Diagnostic Imaging Report ---
Procedure: XRAY Chest 1v Reason for study: Reason For Exam: [id number] Comparison films: 06/18/2020. FINDINGS: Endotracheal tube remain in place. There is slightly improved aeration of both lungs. There is still residual alveolar densities bilaterally. Cardiac and mediastinal silhouette are within normal limits. Small left effusion noted. The bony thorax appear unremarkable. IMPRESSION: Improved aeration of both lungs.
--- NOTE | 2020-06-22 10:57 | Pulmonolgy Critical Care Note ---
Critical Care - Asmt/Plan Problems: (1) Acute respiratory failure (2) Bacteremia (3) Pneumonia (4) Sepsis (5) HCAP (healthcare-associated pneumonia) (6) Seizure disorder (7) Down's syndrome Respiratory: monitor respiratory rate, adjust FIO2, CXR Cardiac: continue to monitor HR/BP Renal: F/U I&O, keep IV fluid, check electrolytes Infectious Disease: check cultures, continue antibiotics, add antibiotics Gastrointestinal: continue feedings/current rate Endocrine: monitor blood sugar Hematologic: transfuse if hgb<8.5 Neurologic: PRN Ativan, PRN Morphine, keep patient comfortable Prophylaxis: Protonix, Heparin Disposition: transfer to Notes Reviewed: 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, cardio, 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 with: nurses, consultants, case management specialistesthetician and manager medical spa - Objective Last 24 Hour Vital Signs Date Time Temp Pulse Resp B/P (MAP) Pulse Ox O2 Delivery O2 Flow Rate FiO2 06/22/20 08:56 100 06/22/20 07:15 45 26 80 06/22/20 07:00 47 26 115/64 (81) 100 06/22/20 06:00 51 26 134/71 (92) 100 06/22/20 05:00 51 26 116/61 (79) 100 06/22/20 04:00 85 06/22/20 04:00 99.1 85 25 117/71 (86) 98 06/22/20 04:00 Mechanical Ventilator Mechanical Ventilator 06/22/20 04:00 80 06/22/20 03:00 67 34 139/79 (99) 100 06/22/20 02:50 67 26 80 06/22/20 02:00 69 29 119/81 (94) 100 06/22/20 01:00 57 16 119/66 (83) 100 06/22/20 00:00 80 06/22/20 00:00 62 06/22/20 00:00 Mechanical Ventilator Mechanical Ventilator 06/22/20 00:00 98.8 62 15 119/71 (87) 100 06/21/20 23:11 63 26 80 06/21/20 23:00 63 17 133/82 (99) 100 06/21/20 22:00 66 21 115/29 (57) 100 06/21/20 21:00 60 20 101/56 (71) 100 06/21/20 20:00 Mechanical Ventilator Mechanical Ventilator 06/21/20 20:00 98.5 64 20 111/89 (96) 100 06/21/20 20:00 80 06/21/20 19:34 61 06/21/20 19:29 76 26 80 06/21/20 19:00 51 26 120/72 (88) 94 06/21/20 19:00 60 22 116/67 (83) 100 06/21/20 18:00 51 26 120/72 (88) 94 06/21/20 17:00 66 25 109/54 (72) 97 06/21/20 16:00 98.1 67 21 96/72 (80) 97 06/21/20 16:00 80 06/21/20 16:00 Mechanical Ventilator Mechanical Ventilator 06/21/20 15:54 60 06/21/20 15:33 75 26 80 06/21/20 15:00 58 22 133/73 (93) 95 06/21/20 14:00 47 26 113/59 (77) 94 06/21/20 13:00 98.2 49 26 114/59 (77) 92 06/21/20 12:26 55 06/21/20 12:00 80 06/21/20 12:00 Mechanical Ventilator Mechanical Ventilator 06/21/20 12:00 58 21 145/71 (95) 95 06/21/20 11:39 59 26 80 06/21/20 11:00 56 23 138/68 (91) 94 Status: awake Condition: critical HEENT: atraumatic, normocephalic Lungs: chest wall tender Heart: HR/BP unstable Abdomen: soft, active bowel sounds Extremities: no C/C/E Accucheck: 131 Critical Care - Subjective ROS Limited/Unobtainable: Yes Condition: critical EKG Rhythm: Sinus Rhythm FI02: 100 Vent Support Breath Rate: 26 Vent Support Mode: AC Vent Tidal Volume: 500 Sputum Amount: Moderate PEEP: 10.0 PIP: 66 Tube Feeding Amount: 60 I&O: Intake and Output 06/21/20 06/22/20 19:00 07:00 Intake Total 942.776 ml 930 ml Output Total 685 ml 680 ml Balance 257.776 ml 250 ml IV Total 242.776 ml 110 ml Tube Feeding 600 ml 720 ml Other 100 ml 100 ml Output Urine Total 685 ml 680 ml Stool Total 0 ml # Bowel Movements 2 2 ET-Tube: 7.5 ET Position: 22 Labs: Laboratory Tests Test 06/22/20 05:10 06/22/20 08:04 White Blood Count 12.9 K/UL (4.8-10.8) H Red Blood Count 2.49 M/UL (4.20-5.40) L Hemoglobin 8.1 G/DL (12.0-16.0) L Hematocrit 24.6 % (37.0-47.0) L Mean Corpuscular Volume 99 FL (80-99) Mean Corpuscular Hemoglobin 32.4 PG (27.0-31.0) H Mean Corpuscular Hemoglobin Concent 32.8 G/DL (32.0-36.0) Red Cell Distribution Width 15.4 % (11.6-14.8) H Platelet Count 166 K/UL (150-450) Mean Platelet Volume 8.9 FL (6.5-10.1) Neutrophils (%) (Auto) % (45.0-75.0) Lymphocytes (%) (Auto) % (20.0-45.0) Monocytes (%) (Auto) % (1.0-10.0) Eosinophils (%) (Auto) % (0.0-3.0) Basophils (%) (Auto) % (0.0-2.0) Differential Total Cells Counted 100 Neutrophils % (Manual) 97 % (45-75) H Lymphocytes % (Manual) 2 % (20-45) L Monocytes % (Manual) 1 % (1-10) Eosinophils % (Manual) 0 % (0-3) Basophils % (Manual) 0 % (0-2) Band Neutrophils 0 % (0-8) Platelet Estimate Adequate Platelet Morphology Normal Hypochromasia 2+ Anisocytosis 1+ Sodium Level 156 MMOL/L (136-145) H Potassium Level 3.1 MMOL/L (3.5-5.1) L Chloride Level 120 MMOL/L (98-107) H Carbon Dioxide Level 28 MMOL/L (21-32) Anion Gap 9 mmol/L (5-15) Blood Urea Nitrogen 32 mg/dL (7-18) H Creatinine 0.8 MG/DL (0.55-1.30) Estimat Glomerular Filtration Rate > 60 mL/min (>60) Glucose Level 179 MG/DL (74-106) H Calcium Level 7.0 MG/DL (8.5-10.1) L Phosphorus Level 2.7 MG/DL (2.5-4.9) Magnesium Level 1.8 MG/DL (1.8-2.4) Total Bilirubin 0.4 MG/DL (0.2-1.0) Aspartate Amino Transf (AST/SGOT) 26 U/L (15-37) Alanine Aminotransferase (ALT/SGPT) 69 U/L (12-78) Alkaline Phosphatase 52 U/L (46-116) Total Protein 4.4 G/DL (6.4-8.2) L Albumin 1.1 G/DL (3.4-5.0) L Globulin 3.3 g/dL Albumin/Globulin Ratio 0.3 (1.0-2.7) L Arterial Blood pH 7.425 (7.350-7.450) Arterial Blood Partial Pressure CO2 41.3 mmHg (35.0-45.0) Arterial Blood Partial Pressure O2 52.7 mmHg (75.0-100.0) L Arterial Blood HCO3 26.5 mmol/L (22.0-26.0) H Arterial Blood Oxygen Saturation 84.7 % (95-100) *L Arterial Blood Base Excess 1.9 (-2-2) Jonathan Test Positive Elayne Allred MD Jun 22, 2020 10:57
[2020-06-22] MEDS: DOPamine 400mg/250ml 250 ML IV SCH (11:15)
[2020-06-22] MEDS: Pantoprazole Inj IV SCH (11:16)
--- NOTE | 2020-06-22 12:00 | NUR ---
NURSE NOTES: Patient stable, opening eyes and making eye contact. Patient stable with no s/sx of pain or distress.
--- NOTE | 2020-06-22 12:10 | General Progress Note ---
Assessment/Plan Assessment/Plan: 1. History of Down syndrome. 2. Dysphagia with G-tube. 3. Seizure disorder. 4. Hypothyroidism. 5. LEANN. 6. Pneumonia. 7. Sepsis. fu H&H ppi GTF hold GI procedures for now check C.diff Subjective ROS Limited/Unobtainable: No Allergies: Coded Allergies: No Known Allergies (Unverified , 10/16/18) Objective Last 24 Hour Vital Signs Date Time Temp Pulse Resp B/P (MAP) Pulse Ox O2 Delivery O2 Flow Rate FiO2 06/22/20 11:00 55 26 111/70 (84) 100 06/22/20 10:59 55 26 90 06/22/20 10:00 58 26 121/104 (110) 100 06/22/20 09:00 67 26 128/68 (88) 100 06/22/20 08:56 100 06/22/20 08:00 98.9 59 24 124/72 (89) 99 06/22/20 08:00 Mechanical Ventilator Mechanical Ventilator 06/22/20 08:00 100 06/22/20 07:15 45 26 80 06/22/20 07:00 47 26 115/64 (81) 100 06/22/20 06:00 51 26 134/71 (92) 100 06/22/20 05:00 51 26 116/61 (79) 100 06/22/20 04:00 85 06/22/20 04:00 99.1 85 25 117/71 (86) 98 06/22/20 04:00 Mechanical Ventilator Mechanical Ventilator 06/22/20 04:00 80 06/22/20 03:00 67 34 139/79 (99) 100 06/22/20 02:50 67 26 80 06/22/20 02:00 69 29 119/81 (94) 100 06/22/20 01:00 57 16 119/66 (83) 100 06/22/20 00:00 80 06/22/20 00:00 62 06/22/20 00:00 Mechanical Ventilator Mechanical Ventilator 06/22/20 00:00 98.8 62 15 119/71 (87) 100 06/21/20 23:11 63 26 80 06/21/20 23:00 63 17 133/82 (99) 100 06/21/20 22:00 66 21 115/29 (57) 100 06/21/20 21:00 60 20 101/56 (71) 100 06/21/20 20:00 Mechanical Ventilator Mechanical Ventilator 06/21/20 20:00 98.5 64 20 111/89 (96) 100 06/21/20 20:00 80 06/21/20 19:34 61 06/21/20 19:29 76 26 80 06/21/20 19:00 51 26 120/72 (88) 94 06/21/20 19:00 60 22 116/67 (83) 100 06/21/20 18:00 51 26 120/72 (88) 94 06/21/20 17:00 66 25 109/54 (72) 97 06/21/20 16:00 98.1 67 21 96/72 (80) 97 06/21/20 16:00 80 06/21/20 16:00 Mechanical Ventilator Mechanical Ventilator 06/21/20 15:54 60 06/21/20 15:33 75 26 80 06/21/20 15:00 58 22 133/73 (93) 95 06/21/20 14:00 47 26 113/59 (77) 94 06/21/20 13:00 98.2 49 26 114/59 (77) 92 06/21/20 12:26 55 Intake and Output 06/21/20 06/22/20 19:00 07:00 Intake Total 942.776 ml 930 ml Output Total 685 ml 680 ml Balance 257.776 ml 250 ml IV Total 242.776 ml 110 ml Tube Feeding 600 ml 720 ml Other 100 ml 100 ml Output Urine Total 685 ml 680 ml Stool Total 0 ml # Bowel Movements 2 2 Laboratory Tests 06/22/20 05:10: White Blood Count 12.9H, Red Blood Count 2.49L, Hemoglobin 8.1L, Hematocrit 24.6L, Mean Corpuscular Volume 99, Mean Corpuscular Hemoglobin 32.4H, Mean Corpuscular Hemoglobin Concent 32.8, Red Cell Distribution Width 15.4H, Platelet Count 166, Mean Platelet Volume 8.9, Neutrophils (%) (Auto) , Lymphocytes (%) (Auto) , Monocytes (%) (Auto) , Eosinophils (%) (Auto) , Basophils (%) (Auto) , Differential Total Cells Counted 100, Neutrophils % ( Manual) 97H, Lymphocytes % (Manual) 2L, Monocytes % (Manual) 1, Eosinophils % ( Manual) 0, Basophils % (Manual) 0, Band Neutrophils 0, Platelet Estimate Adequate, Platelet Morphology Normal, Hypochromasia 2+, Anisocytosis 1+, Sodium Level 156H, Potassium Level 3.1L, Chloride Level 120H, Carbon Dioxide Level 28, Anion Gap 9, Blood Urea Nitrogen 32H, Creatinine 0.8, Estimat Glomerular Filtration Rate > 60, Glucose Level 179H, Calcium Level 7.0L, Phosphorus Level 2.7, Magnesium Level 1.8, Total Bilirubin 0.4, Aspartate Amino Transf (AST/SGOT ) 26, Alanine Aminotransferase (ALT/SGPT) 69, Alkaline Phosphatase 52, Total Protein 4.4L, Albumin 1.1L, Globulin 3.3, Albumin/Globulin Ratio 0.3L 06/22/20 08:04: Arterial Blood pH 7.425, Arterial Blood Partial Pressure CO2 41.3, Arterial Blood Partial Pressure O2 52.7L, Arterial Blood HCO3 26.5H, Arterial Blood Oxygen Saturation 84.7*L, Arterial Blood Base Excess 1.9, Jonathan Test Positive Height (Feet): 5 Height (Inches): 3.00 Weight (Pounds): 172 General Appearance: no apparent distress EENT: normal ENT inspection Neck: supple Cardiovascular: normal rate Respiratory/Chest: decreased breath sounds Abdomen: normal bowel sounds, non tender, soft Extremities: non-tender Nehemiah Perez MD Jun 22, 2020 12:10
--- NOTE | 2020-06-22 12:22 | Nephrology Progress Note ---
Assessment/Plan Problem List: (1) LEANN (acute kidney injury) (2) Respiratory failure requiring intubation (3) Down's syndrome (4) Seizure disorder (5) Hypothyroidism Assessment Acute renal failure, likely due to hypotension Acute respiratory distress, hypoxia Seizure disorder Hypothyroidism Down syndrome Full code Fluid challenge with IV fluids and albumin Midodrine for BP above 100 systolic Check TSH level Check Correct level Monitor renal parameters Urine studies Per orders Plan June 22: Labs reviewed. Low potassium and high sodium noted. Hemoglobin 8.1 stable. Aim to correct abnormal electrolyte. Continue rest. Will give 2 boluses of D5W 500 cc. June 21: Lab reviewed. Abnormal electrolytes noted and addressed. June 20: Labs reviewed. Potassium supplement given. Patient remains full code. Continue per consultants. June 19: Lab reviewed. Electrolyte abnormalities addressed. Continue per pulmonary and ID. June 18: Lab reviewed. Status unchanged. Serum sodium 151 unchanged. Stable from renal standpoint of view. June 17: Labs reviewed. Status quo. D5W 500 cc IV ordered. Continue to monitor renal parameters. June 16: Status quo. Labs reviewed. Overall condition unchanged. Patient was transfused and hemoglobin higher. Continue current management. Patient remains full code. June 15: Status quo. Overall condition poor. Very low albumin. Edematous. Hypotensive. Hemoglobin lower. Anemia work-up ordered. I favor transfusion 2 units of packed RBCs. Patient remains full code. I favor supportive care only. Will discuss. June 14: Electrolyte abnormalities addressed. Serum creatinine lower. Continue per current management. June 13: Status unchanged. Lab reviewed. Serum potassium 2.7. IV potassium chloride ordered. Serum creatinine low at 1.6 stable. Blood pressure 90s systolic June 12: Status quo. Labs reviewed. Renal parameters stable. Serum creatinine down to 1.6. Medication list reviewed. Continues to be on midodrine. Continue per consultants. June 11: Status quo. Labs reviewed. Electrolytes adjusted. Serum creatinine down to 1.8. Continue per consultants. June 10: Status quo. Labs reviewed. Phosphorus supplement IV given. Serum creatinine 2. Continue per consultants. June 09: Requires less pressors. Albumin bolus given. 1 dose of Lasix IV ordered as the patient severely edematous. Patient serum albumin is very low. Continue per consultants. June 08: Continues to be intubated. Labs reviewed. Serum creatinine 1.9 unchanged. Blood pressure more stable. Off 1 of the pressors. Continue to monitor renal parameters. Continue per consultants. Patient now on hydrocortisone 100 mg every 8 hours. Will decrease IV fluid. Normal saline down to 50 cc an hour. June 07: Intubated. Labs reviewed. Creatinine 1.9 unchanged. Continue same treatment plan. Per consultants. Overall poor prognosis since the patient remains on pressors and her pulmonary status is worsening. June 06: Remains intubated. Labs reviewed. Creatinine 1.9. Blood pressure systolic 90s. Continue per consultants. June 05: Remains intubated. Labs reviewed. Serum creatinine lower to 2. Vancomycin level lower. Remains hypotensive on pressors. Will increase midodrine to 10 mg every 8 hours. Continue per consultants. Continue to monitor renal parameters. June 04: Patient now in ICU. Intubated. On pressors. Labs reviewed. Will increase midodrine. Aim to keep blood pressure over 100 systolic. Will give albumin bolus. Will check vancomycin level which was elevated when checked previously on June 01. Will monitor renal parameters. Continue per consultants. Subjective ROS Limited/Unobtainable: Yes Objective Objective Last 24 Hour Vital Signs Date Time Temp Pulse Resp B/P (MAP) Pulse Ox O2 Delivery O2 Flow Rate FiO2 06/22/20 11:00 55 26 111/70 (84) 100 06/22/20 10:59 55 26 90 06/22/20 10:00 58 26 121/104 (110) 100 06/22/20 09:00 67 26 128/68 (88) 100 06/22/20 08:56 100 06/22/20 08:00 98.9 59 24 124/72 (89) 99 06/22/20 08:00 Mechanical Ventilator Mechanical Ventilator 06/22/20 08:00 100 06/22/20 07:15 45 26 80 06/22/20 07:00 47 26 115/64 (81) 100 06/22/20 06:00 51 26 134/71 (92) 100 06/22/20 05:00 51 26 116/61 (79) 100 06/22/20 04:00 85 06/22/20 04:00 99.1 85 25 117/71 (86) 98 06/22/20 04:00 Mechanical Ventilator Mechanical Ventilator 06/22/20 04:00 80 06/22/20 03:00 67 34 139/79 (99) 100 06/22/20 02:50 67 26 80 06/22/20 02:00 69 29 119/81 (94) 100 06/22/20 01:00 57 16 119/66 (83) 100 06/22/20 00:00 80 06/22/20 00:00 62 06/22/20 00:00 Mechanical Ventilator Mechanical Ventilator 06/22/20 00:00 98.8 62 15 119/71 (87) 100 06/21/20 23:11 63 26 80 06/21/20 23:00 63 17 133/82 (99) 100 06/21/20 22:00 66 21 115/29 (57) 100 06/21/20 21:00 60 20 101/56 (71) 100 06/21/20 20:00 Mechanical Ventilator Mechanical Ventilator 06/21/20 20:00 98.5 64 20 111/89 (96) 100 06/21/20 20:00 80 06/21/20 19:34 61 06/21/20 19:29 76 26 80 06/21/20 19:00 51 26 120/72 (88) 94 06/21/20 19:00 60 22 116/67 (83) 100 06/21/20 18:00 51 26 120/72 (88) 94 06/21/20 17:00 66 25 109/54 (72) 97 06/21/20 16:00 98.1 67 21 96/72 (80) 97 06/21/20 16:00 80 06/21/20 16:00 Mechanical Ventilator Mechanical Ventilator 06/21/20 15:54 60 06/21/20 15:33 75 26 80 06/21/20 15:00 58 22 133/73 (93) 95 06/21/20 14:00 47 26 113/59 (77) 94 06/21/20 13:00 98.2 49 26 114/59 (77) 92 06/21/20 12:26 55 Intake and Output 06/21/20 06/22/20 19:00 07:00 Intake Total 942.776 ml 930 ml Output Total 685 ml 680 ml Balance 257.776 ml 250 ml IV Total 242.776 ml 110 ml Tube Feeding 600 ml 720 ml Other 100 ml 100 ml Output Urine Total 685 ml 680 ml Stool Total 0 ml # Bowel Movements 2 2 Laboratory Tests 06/22/20 05:10: White Blood Count 12.9H, Red Blood Count 2.49L, Hemoglobin 8.1L, Hematocrit 24.6L, Mean Corpuscular Volume 99, Mean Corpuscular Hemoglobin 32.4H, Mean Corpuscular Hemoglobin Concent 32.8, Red Cell Distribution Width 15.4H, Platelet Count 166, Mean Platelet Volume 8.9, Neutrophils (%) (Auto) , Lymphocytes (%) (Auto) , Monocytes (%) (Auto) , Eosinophils (%) (Auto) , Basophils (%) (Auto) , Differential Total Cells Counted 100, Neutrophils % ( Manual) 97H, Lymphocytes % (Manual) 2L, Monocytes % (Manual) 1, Eosinophils % ( Manual) 0, Basophils % (Manual) 0, Band Neutrophils 0, Platelet Estimate Adequate, Platelet Morphology Normal, Hypochromasia 2+, Anisocytosis 1+, Sodium Level 156H, Potassium Level 3.1L, Chloride Level 120H, Carbon Dioxide Level 28, Anion Gap 9, Blood Urea Nitrogen 32H, Creatinine 0.8, Estimat Glomerular Filtration Rate > 60, Glucose Level 179H, Calcium Level 7.0L, Phosphorus Level 2.7, Magnesium Level 1.8, Total Bilirubin 0.4, Aspartate Amino Transf (AST/SGOT ) 26, Alanine Aminotransferase (ALT/SGPT) 69, Alkaline Phosphatase 52, Total Protein 4.4L, Albumin 1.1L, Globulin 3.3, Albumin/Globulin Ratio 0.3L 06/22/20 08:04: Arterial Blood pH 7.425, Arterial Blood Partial Pressure CO2 41.3, Arterial Blood Partial Pressure O2 52.7L, Arterial Blood HCO3 26.5H, Arterial Blood Oxygen Saturation 84.7*L, Arterial Blood Base Excess 1.9, Jonathan Test Positive Height (Feet): 5 Height (Inches): 3.00 Weight (Pounds): 172 General Appearance: no apparent distress EENT: other - On mechanical ventilation Cardiovascular: normal rate - Heart rate in 50s Respiratory/Chest: decreased breath sounds Abdomen: soft, distended Keron Pitt MD Jun 22, 2020 12:22
--- NOTE | 2020-06-22 13:31 | Infectious Diseases Prog Note ---
Assessment/Plan ASSESSMENT: sp code blue 06/03 Septic Shock; SP Fever, recurrent Leukocytosis; recurrent; improved -06/17 u/a no pyuria -06/16 Bcx NTD (Picc line) -06/14 Bcx NTD ucx Neg sp cx C. parapsilopsis -06/03 u/a no pyuria Pneumonia.- COVID 19 neg x3 Acute hypoxic resp failure on VM> NRB 15l 100%; hypoxic on ABG> now VDRF 06/03 - Fio2 80% >100% 06/05> 60% 06/09 >80% 06/10 >95% 06/18 >90% 06/22 -06/22 CXR: Improved aeration of both lungs. -06/13 CXR:Small bilateral pleural effusions with minor edema. Stable edema with mild worsening in the degree of pleural effusion on the right. -06/09 sp cx Neg 06/08 CXR: Extensive bilateral interstitial and airspace disease appears similar to the prior exam. Moderate to large bilateral pleural effusions appear unchanged. 06/05 CXR: Increasing left upper lobe dense consolidation and likely increasing bilateral pleural fluid. Persistent diffuse dense consolidation elsewhere -06/03 sp cx normal resp marie -06/02 CXR: Increased atelectasis of the right lung, since prior exam of 3 days earlier. New or increased right pleural effusion. Increased left basilar consolidation and/or pleural fluid -COVID Rapid PCR neg 05/31, 05/31, 06/03 -05/30 spc x Group G strep -05/30 CXR: Reduced lung volumes. Patchy bilateral predominantly interstitial pulmonary opacities. Could be from edema and/or pneumonia. There is a broader differential. -legionella ag urine, blasto ab, Histo ab, HIV ab screen, FRANCIS, ANCA neg Persistent, high grade bacteremia- -05/30 Bcx 4/4 sets S. haemolyticus; 05/31 Bcx 3/4 S/ epi; 06/04 Bcx 1.4 S. warnerri; 06/06 Bcx Neg -2d echo: no vegetaions seen ua/ wbc 10-15, nit neg, leuk +1; ucx Neg LEANN; -supratherapeutic vanco levels -Seizure disorder. - Hypothyroidism. - Down syndrome. History of PEG tube placement. [place] resident PLAN: Dc Meropenem#18(abx d #) given resp decompensation Empiric Amikacin #7/7 pending repeat cultures 06/12/20 SP Daptomycin #11 9/ SP MIcafungin #7, Linezolid #5 06/05 SP Azithromycin #7/7 06/03 SP Ceftriaxone #2 06/02 SP IV Vancomycin #4, Zosyn #4 05/30 SP Cefepime x1, Flagyl x1 - Monitor CBC, BMP. .f/u Repeat cx - COVID neg x3 - Monitor chest x-ray. - Monitor the patient's clinical course and labs. Based on those, we will do further recommendation. -f/u Bcx from picc line, cdiff if diarrhea -f/u Fungitell, asp ag, flow cytometry -Once stable, CT chest/abd/pw/ given persistent leukocytosis Thank you, Dr. Allred, for allowing me to participate in the care of this patient. I will follow the patient with you at this hospitalization. Discussed with RN Subjective Allergies: Coded Allergies: No Known Allergies (Unverified , 10/16/18) afebrile leukocytosis improving Bcx NTD Fio2 90% CXR improving Objective Last 24 Hour Vital Signs Date Time Temp Pulse Resp B/P (MAP) Pulse Ox O2 Delivery O2 Flow Rate FiO2 06/22/20 11:00 55 26 111/70 (84) 100 06/22/20 10:59 55 26 90 06/22/20 10:00 58 26 121/104 (110) 100 06/22/20 09:00 67 26 128/68 (88) 100 06/22/20 08:56 100 06/22/20 08:00 98.9 59 24 124/72 (89) 99 06/22/20 08:00 Mechanical Ventilator Mechanical Ventilator 06/22/20 08:00 100 06/22/20 07:15 45 26 80 06/22/20 07:00 47 26 115/64 (81) 100 06/22/20 06:00 51 26 134/71 (92) 100 06/22/20 05:00 51 26 116/61 (79) 100 06/22/20 04:00 85 06/22/20 04:00 99.1 85 25 117/71 (86) 98 06/22/20 04:00 Mechanical Ventilator Mechanical Ventilator 06/22/20 04:00 80 06/22/20 03:00 67 34 139/79 (99) 100 06/22/20 02:50 67 26 80 06/22/20 02:00 69 29 119/81 (94) 100 06/22/20 01:00 57 16 119/66 (83) 100 06/22/20 00:00 80 06/22/20 00:00 62 06/22/20 00:00 Mechanical Ventilator Mechanical Ventilator 06/22/20 00:00 98.8 62 15 119/71 (87) 100 06/21/20 23:11 63 26 80 06/21/20 23:00 63 17 133/82 (99) 100 06/21/20 22:00 66 21 115/29 (57) 100 06/21/20 21:00 60 20 101/56 (71) 100 06/21/20 20:00 Mechanical Ventilator Mechanical Ventilator 06/21/20 20:00 98.5 64 20 111/89 (96) 100 06/21/20 20:00 80 06/21/20 19:34 61 06/21/20 19:29 76 26 80 06/21/20 19:00 51 26 120/72 (88) 94 06/21/20 19:00 60 22 116/67 (83) 100 06/21/20 18:00 51 26 120/72 (88) 94 06/21/20 17:00 66 25 109/54 (72) 97 06/21/20 16:00 98.1 67 21 96/72 (80) 97 06/21/20 16:00 80 06/21/20 16:00 Mechanical Ventilator Mechanical Ventilator 06/21/20 15:54 60 06/21/20 15:33 75 26 80 06/21/20 15:00 58 22 133/73 (93) 95 06/21/20 14:00 47 26 113/59 (77) 94 Height (Feet): 5 Height (Inches): 3.00 Weight (Pounds): 172 HEENT: No pale conjunctivae. No icterus. ETT in place NECK: No lymphadenopathy. CHEST: Coarse breathing sounds. HEART: S1 and S2. ABDOMEN: Soft. PEG tube in place. EXTREMITIES: No cyanosis at this time . SKIN: no rash Laboratory Tests Test 06/22/20 05:10 06/22/20 08:04 White Blood Count 12.9 K/UL (4.8-10.8) H Red Blood Count 2.49 M/UL (4.20-5.40) L Hemoglobin 8.1 G/DL (12.0-16.0) L Hematocrit 24.6 % (37.0-47.0) L Mean Corpuscular Volume 99 FL (80-99) Mean Corpuscular Hemoglobin 32.4 PG (27.0-31.0) H Mean Corpuscular Hemoglobin Concent 32.8 G/DL (32.0-36.0) Red Cell Distribution Width 15.4 % (11.6-14.8) H Platelet Count 166 K/UL (150-450) Mean Platelet Volume 8.9 FL (6.5-10.1) Neutrophils (%) (Auto) % (45.0-75.0) Lymphocytes (%) (Auto) % (20.0-45.0) Monocytes (%) (Auto) % (1.0-10.0) Eosinophils (%) (Auto) % (0.0-3.0) Basophils (%) (Auto) % (0.0-2.0) Differential Total Cells Counted 100 Neutrophils % (Manual) 97 % (45-75) H Lymphocytes % (Manual) 2 % (20-45) L Monocytes % (Manual) 1 % (1-10) Eosinophils % (Manual) 0 % (0-3) Basophils % (Manual) 0 % (0-2) Band Neutrophils 0 % (0-8) Platelet Estimate Adequate Platelet Morphology Normal Hypochromasia 2+ Anisocytosis 1+ Sodium Level 156 MMOL/L (136-145) H Potassium Level 3.1 MMOL/L (3.5-5.1) L Chloride Level 120 MMOL/L (98-107) H Carbon Dioxide Level 28 MMOL/L (21-32) Anion Gap 9 mmol/L (5-15) Blood Urea Nitrogen 32 mg/dL (7-18) H Creatinine 0.8 MG/DL (0.55-1.30) Estimat Glomerular Filtration Rate > 60 mL/min (>60) Glucose Level 179 MG/DL (74-106) H Calcium Level 7.0 MG/DL (8.5-10.1) L Phosphorus Level 2.7 MG/DL (2.5-4.9) Magnesium Level 1.8 MG/DL (1.8-2.4) Total Bilirubin 0.4 MG/DL (0.2-1.0) Aspartate Amino Transf (AST/SGOT) 26 U/L (15-37) Alanine Aminotransferase (ALT/SGPT) 69 U/L (12-78) Alkaline Phosphatase 52 U/L (46-116) Total Protein 4.4 G/DL (6.4-8.2) L Albumin 1.1 G/DL (3.4-5.0) L Globulin 3.3 g/dL Albumin/Globulin Ratio 0.3 (1.0-2.7) L Arterial Blood pH 7.425 (7.350-7.450) Arterial Blood Partial Pressure CO2 41.3 mmHg (35.0-45.0) Arterial Blood Partial Pressure O2 52.7 mmHg (75.0-100.0) L Arterial Blood HCO3 26.5 mmol/L (22.0-26.0) H Arterial Blood Oxygen Saturation 84.7 % (95-100) *L Arterial Blood Base Excess 1.9 (-2-2) Jonathan Test Positive Current Medications Medications (Trade) Dose Ordered Sig/Katy Route PRN Reason Start Time Stop Time Status Last Admin Dose Admin Acetaminophen (Tylenol) 650 mg Q4H PRN GT FEVER 06/03/20 11:45 07/03/20 11:44 06/15/20 03:17 Amikacin Protocol (Amikacin pharmacy to dose) 1 ea DAILY PRN MISC Per rx protocol 06/16/20 12:00 07/16/20 11:59 Amikacin Sulfate 1000 mg/Sodium Chloride 114 ml @ 114 mls/hr Q36H IV 06/16/20 14:00 06/23/20 13:59 06/21/20 01:51 Chlorhexidine Gluconate (Alla-Hex 2%) 1 applic DAILY@1999 TOPIC 06/08/20 20:00 09/06/20 19:59 06/21/20 19:47 Clotrimazole (Lotrimin) 1 applic Q12HR TOPIC 06/07/20 13:00 09/05/20 12:59 06/22/20 11:16 Dextrose 500 ml @ 500 mls/hr ONCE ONCE IV 06/22/20 12:30 06/22/20 13:29 06/22/20 13:07 Dextrose (Dextrose 50%) 25 ml Q30M PRN IV Hypoglycemia 06/03/20 11:30 08/28/20 11:29 Dextrose (Dextrose 50%) 50 ml Q30M PRN IV Hypoglycemia 06/03/20 11:30 08/28/20 11:29 Dopamine HCl/ Dextrose 250 ml @ 0 mls/hr Q24H IV 06/12/20 11:15 09/10/20 11:14 06/14/20 19:47 Hydrocortisone (Solu-CORTEF) 100 mg EVERY 8 HOURS IV 06/07/20 14:00 09/05/20 13:59 06/22/20 05:56 Levothyroxine Sodium (Synthroid) 75 mcg DAILY GT 06/04/20 09:00 06/30/20 08:59 06/22/20 11:16 Meropenem 1 gm/ Sodium Chloride 55 ml @ 110 mls/hr Q8H IVPB 06/14/20 12:00 06/24/20 23:59 06/22/20 13:00 Midodrine (Pro-Amatine) 10 mg Q8HR GT 06/05/20 14:00 09/03/20 13:59 06/22/20 05:57 Norepinephrine Bitartrate 16 mg/ Dextrose 500 ml @ 0 mls/hr Q24H IV 06/08/20 07:45 07/07/20 12:59 06/12/20 08:43 Ondansetron HCl (Zofran) 4 mg Q6H PRN IVP Nausea & Vomiting 06/03/20 12:00 06/29/20 11:59 Pantoprazole (Protonix) 40 mg DAILY IV 06/04/20 09:00 06/30/20 08:59 06/22/20 11:16 Phenylephrine HCl 50 mg/Dextrose 250 ml @ 0 mls/hr Q24H PRN IV For hypotension 06/06/20 17:45 07/06/20 17:44 06/08/20 01:49 Polyethylene Glycol (Miralax) 17 gm DAILYPRN PRN GT Constipation 06/03/20 12:00 06/29/20 11:59 Valproic Acid (Depakene) 500 mg EVERY 8 HOURS GT 06/03/20 14:00 06/29/20 21:59 06/22/20 05:57 Suki Camejo M.D. Jun 22, 2020 13:31
--- NOTE | 2020-06-22 14:00 | NUR ---
NURSE NOTES: Patient stable, opening eyes and making eye contact. Patient stable with no s/sx of pain or distress.
[2020-06-22] MEDS: Amikacin 1,000 MG in NS 110 ML IV SCH (15:58)
--- NOTE | 2020-06-22 16:00 | NUR ---
NURSE NOTES: Patient stable, opening eyes and making eye contact. Patient stable with no s/sx of pain or distress. Oral care performed.
--- NOTE | 2020-06-22 16:52 | NUR ---
CASE MANAGEMENT: REVIEW 06/22/2020 SI:SEPSIS. PNA. 98.9 59 24 124/72 99% ON MECH VENT FIO2 100 WBC 12.9 H/H 8.1/24.6 NA+156 K+3.1 CL-120 BUN 32 BG 179 CA+ 7.0 ALB 1.1 ABG: pO2 52.7 HCO3 26.5 O2 SAT% 84.7 IS:IV D5 BOLUS X1 IV LEVOPHED PROTOCOL ~TITRATED IV DOPAMINE PROTOCOL ~TITRATED IV AMIKACIN Q36HR GT DEPAKENE TID CHEST X-RAY -improved aeration of both lungs. ICU PLAN OF CARE: PLACE RECTAL TUBE ADJUST FiO2 CONT REPARATORY CARE ~WEAN
--- NOTE | 2020-06-22 18:00 | NUR ---
NURSE NOTES: Patient stable, opening eyes and making eye contact. Patient stable with no s/sx of pain or distress. Patient cleaned, rectal tube replaced and stool sample collected.
[2020-06-22] MEDS ORDERED: Tubing IV Secondary IV ONE (18:44)
[2020-06-22] MEDS ORDERED: NS 275ml ONE (18:44)
--- NOTE | 2020-06-22 18:44 | Internal Med Progress Note ---
Subjective Date of Service: Jun 22, 2020 Physician Name Joni Copeland Attending Physician Elayne Allred MD Current Medications Medications (Trade) Dose Ordered Sig/Katy Route PRN Reason Start Time Stop Time Status Last Admin Dose Admin Acetaminophen (Tylenol) 650 mg Q4H PRN GT FEVER 06/03/20 11:45 07/03/20 11:44 06/15/20 03:17 Amikacin Protocol (Amikacin pharmacy to dose) 1 ea DAILY PRN MISC Per rx protocol 06/16/20 12:00 07/16/20 11:59 Amikacin Sulfate 1000 mg/Sodium Chloride 114 ml @ 114 mls/hr Q36H IV 06/16/20 14:00 06/23/20 13:59 06/22/20 15:58 Chlorhexidine Gluconate (Alla-Hex 2%) 1 applic DAILY@1999 TOPIC 06/08/20 20:00 09/06/20 19:59 06/21/20 19:47 Clotrimazole (Lotrimin) 1 applic Q12HR TOPIC 06/07/20 13:00 09/05/20 12:59 06/22/20 11:16 Dextrose (Dextrose 50%) 25 ml Q30M PRN IV Hypoglycemia 06/03/20 11:30 08/28/20 11:29 Dextrose (Dextrose 50%) 50 ml Q30M PRN IV Hypoglycemia 06/03/20 11:30 08/28/20 11:29 Dopamine HCl/ Dextrose 250 ml @ 0 mls/hr Q24H IV 06/12/20 11:15 09/10/20 11:14 06/14/20 19:47 Hydrocortisone (Solu-CORTEF) 100 mg EVERY 8 HOURS IV 06/07/20 14:00 09/05/20 13:59 06/22/20 15:58 Levothyroxine Sodium (Synthroid) 75 mcg DAILY GT 06/04/20 09:00 06/30/20 08:59 06/22/20 11:16 Midodrine (Pro-Amatine) 10 mg Q8HR GT 06/05/20 14:00 09/03/20 13:59 06/22/20 15:57 Norepinephrine Bitartrate 16 mg/ Dextrose 500 ml @ 0 mls/hr Q24H IV 06/08/20 07:45 07/07/20 12:59 06/12/20 08:43 Ondansetron HCl (Zofran) 4 mg Q6H PRN IVP Nausea & Vomiting 06/03/20 12:00 06/29/20 11:59 Pantoprazole (Protonix) 40 mg DAILY IV 06/04/20 09:00 06/30/20 08:59 06/22/20 11:16 Phenylephrine HCl 50 mg/Dextrose 250 ml @ 0 mls/hr Q24H PRN IV For hypotension 06/06/20 17:45 07/06/20 17:44 06/08/20 01:49 Polyethylene Glycol (Miralax) 17 gm DAILYPRN PRN GT Constipation 06/03/20 12:00 06/29/20 11:59 Potassium Chloride 100 ml @ 50 mls/hr Q2H IVPB 06/22/20 18:30 06/22/20 22:29 Valproic Acid (Depakene) 500 mg EVERY 8 HOURS GT 06/03/20 14:00 06/29/20 21:59 06/22/20 15:57 Allergies: Coded Allergies: No Known Allergies (Unverified , 10/16/18) ROS Limited/Unobtainable: Yes Subjective 59 YO F with Down's syndrome admitted with hypoxia. Now sepsis and pneumonia. Cover for Int Med-DR Hawk. ICU. Intubated and sedated Objective Last Vital Signs Date Time Temp Pulse Resp B/P (MAP) Pulse Ox O2 Delivery O2 Flow Rate FiO2 06/22/20 16:00 Mechanical Ventilator Mechanical Ventilator 06/22/20 16:00 100 06/22/20 16:00 59 06/22/20 15:03 26 06/22/20 15:00 93/61 (72) 100 06/22/20 12:00 98.4 Laboratory Tests Test 06/22/20 05:10 06/22/20 08:04 White Blood Count 12.9 K/UL (4.8-10.8) H Red Blood Count 2.49 M/UL (4.20-5.40) L Hemoglobin 8.1 G/DL (12.0-16.0) L Hematocrit 24.6 % (37.0-47.0) L Mean Corpuscular Volume 99 FL (80-99) Mean Corpuscular Hemoglobin 32.4 PG (27.0-31.0) H Mean Corpuscular Hemoglobin Concent 32.8 G/DL (32.0-36.0) Red Cell Distribution Width 15.4 % (11.6-14.8) H Platelet Count 166 K/UL (150-450) Mean Platelet Volume 8.9 FL (6.5-10.1) Neutrophils (%) (Auto) % (45.0-75.0) Lymphocytes (%) (Auto) % (20.0-45.0) Monocytes (%) (Auto) % (1.0-10.0) Eosinophils (%) (Auto) % (0.0-3.0) Basophils (%) (Auto) % (0.0-2.0) Differential Total Cells Counted 100 Neutrophils % (Manual) 97 % (45-75) H Lymphocytes % (Manual) 2 % (20-45) L Monocytes % (Manual) 1 % (1-10) Eosinophils % (Manual) 0 % (0-3) Basophils % (Manual) 0 % (0-2) Band Neutrophils 0 % (0-8) Platelet Estimate Adequate Platelet Morphology Normal Hypochromasia 2+ Anisocytosis 1+ Sodium Level 156 MMOL/L (136-145) H Potassium Level 3.1 MMOL/L (3.5-5.1) L Chloride Level 120 MMOL/L (98-107) H Carbon Dioxide Level 28 MMOL/L (21-32) Anion Gap 9 mmol/L (5-15) Blood Urea Nitrogen 32 mg/dL (7-18) H Creatinine 0.8 MG/DL (0.55-1.30) Estimat Glomerular Filtration Rate > 60 mL/min (>60) Glucose Level 179 MG/DL (74-106) H Calcium Level 7.0 MG/DL (8.5-10.1) L Phosphorus Level 2.7 MG/DL (2.5-4.9) Magnesium Level 1.8 MG/DL (1.8-2.4) Total Bilirubin 0.4 MG/DL (0.2-1.0) Aspartate Amino Transf (AST/SGOT) 26 U/L (15-37) Alanine Aminotransferase (ALT/SGPT) 69 U/L (12-78) Alkaline Phosphatase 52 U/L (46-116) Total Protein 4.4 G/DL (6.4-8.2) L Albumin 1.1 G/DL (3.4-5.0) L Globulin 3.3 g/dL Albumin/Globulin Ratio 0.3 (1.0-2.7) L Arterial Blood pH 7.425 (7.350-7.450) Arterial Blood Partial Pressure CO2 41.3 mmHg (35.0-45.0) Arterial Blood Partial Pressure O2 52.7 mmHg (75.0-100.0) L Arterial Blood HCO3 26.5 mmol/L (22.0-26.0) H Arterial Blood Oxygen Saturation 84.7 % (95-100) *L Arterial Blood Base Excess 1.9 (-2-2) Jonathan Test Positive Intake and Output 06/21/20 06/22/20 19:00 07:00 Intake Total 942.776 ml 930 ml Output Total 685 ml 680 ml Balance 257.776 ml 250 ml IV Total 242.776 ml 110 ml Tube Feeding 600 ml 720 ml Other 100 ml 100 ml Output Urine Total 685 ml 680 ml Stool Total 0 ml # Bowel Movements 2 2 Objective General Appearance: WD/WN, no apparent distress, alert EENT: PERRL/EOMI, normal ENT inspection Neck: non-tender, normal alignment, supple, normal inspection Cardiovascular: normal peripheral pulses, normal rate, regular rhythm, no gallop/murmur, no JVD Respiratory/Chest: [facility] vent; decreased breath sounds, crackles/rales, rhonchi - bilaterally, expiratory wheezing Abdomen: normal bowel sounds, non tender, soft, no organomegaly, no mass Extremities: normal range of motion Neurologic: information services consultant II-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 Continue daptomycin per ID=Dr Camejo. Pulmonary/Critical care=DR Allred. COVID NEG (2) Sepsis Assessment & Plan: Staph haemolyticus. Continue amikacin and meropenem per ID= Dr Camejo (3) Down's syndrome (4) Dysphagia Assessment & Plan: S/P PEG (5) Seizure disorder Assessment & Plan: Continue keppra and depakote (6) Hypothyroidism Assessment & Plan: Continue synthroid (7) Acute respiratory failure Assessment & Plan: Pulmonary = Dr Allred; [facility] vent Joni Copeland MD Jun 22, 2020 18:44
--- NOTE | 2020-06-22 18:58 | Cardiology Progress Note ---
Assessment/Plan Assessment/Plan sepsis respiratory failure ards renal insuf bacteremia abn cardiac enzyme due to demand sinus rafael stable thrombocytopenia resolved hypernatremia vent support abx wbc min increased na increased still 3rd spacing alot cxr form 06/18 reviewed and compared to cxr from today appears improved to my reading and with radiologsit reading as well tsh seems fine sig edema with hypernatremia need nauteresis eventually remains off pressor still at this time hr inthe 40's-60's no sig pauses on tele slower heart rate occure during sleep per [place] personally reviewed hopefully will be able to wean Subjective Subjective on a vent not communicative but look awake Objective Last 24 Hour Vital Signs Date Time Temp Pulse Resp B/P (MAP) Pulse Ox O2 Delivery O2 Flow Rate FiO2 06/22/20 16:00 Mechanical Ventilator Mechanical Ventilator 06/22/20 16:00 100 06/22/20 16:00 59 06/22/20 15:03 50 26 80 06/22/20 15:00 56 26 93/61 (72) 100 06/22/20 14:00 63 24 108/67 (81) 100 06/22/20 13:00 55 26 110/78 (89) 100 06/22/20 12:00 Mechanical Ventilator Mechanical Ventilator 06/22/20 12:00 98.4 59 26 120/87 (98) 100 06/22/20 12:00 60 06/22/20 12:00 100 06/22/20 11:00 55 26 111/70 (84) 100 06/22/20 10:59 55 26 90 06/22/20 10:00 58 26 121/104 (110) 100 06/22/20 09:00 67 26 128/68 (88) 100 06/22/20 08:56 100 06/22/20 08:00 98.9 59 24 124/72 (89) 99 06/22/20 08:00 65 06/22/20 08:00 Mechanical Ventilator Mechanical Ventilator 06/22/20 08:00 100 06/22/20 07:15 45 26 80 06/22/20 07:00 47 26 115/64 (81) 100 06/22/20 06:00 51 26 134/71 (92) 100 06/22/20 05:00 51 26 116/61 (79) 100 06/22/20 04:00 85 06/22/20 04:00 99.1 85 25 117/71 (86) 98 06/22/20 04:00 Mechanical Ventilator Mechanical Ventilator 06/22/20 04:00 80 06/22/20 03:00 67 34 139/79 (99) 100 06/22/20 02:50 67 26 80 06/22/20 02:00 69 29 119/81 (94) 100 06/22/20 01:00 57 16 119/66 (83) 100 06/22/20 00:00 80 06/22/20 00:00 62 06/22/20 00:00 Mechanical Ventilator Mechanical Ventilator 06/22/20 00:00 98.8 62 15 119/71 (87) 100 06/21/20 23:11 63 26 80 06/21/20 23:00 63 17 133/82 (99) 100 06/21/20 22:00 66 21 115/29 (57) 100 06/21/20 21:00 60 20 101/56 (71) 100 06/21/20 20:00 Mechanical Ventilator Mechanical Ventilator 06/21/20 20:00 98.5 64 20 111/89 (96) 100 06/21/20 20:00 80 06/21/20 19:34 61 06/21/20 19:29 76 26 80 06/21/20 19:00 51 26 120/72 (88) 94 06/21/20 19:00 60 22 116/67 (83) 100 General Appearance: on vent, patient on isolation, other - awake Cardiovascular: normal rate Respiratory/Chest: lungs clear Abdomen: normal bowel sounds, non tender, soft Extremities: moderate edema Intake and Output 06/21/20 06/22/20 19:00 07:00 Intake Total 942.776 ml 930 ml Output Total 685 ml 680 ml Balance 257.776 ml 250 ml IV Total 242.776 ml 110 ml Tube Feeding 600 ml 720 ml Other 100 ml 100 ml Output Urine Total 685 ml 680 ml Stool Total 0 ml # Bowel Movements 2 2 Laboratory Tests Test 06/22/20 05:10 06/22/20 08:04 White Blood Count 12.9 K/UL (4.8-10.8) H Red Blood Count 2.49 M/UL (4.20-5.40) L Hemoglobin 8.1 G/DL (12.0-16.0) L Hematocrit 24.6 % (37.0-47.0) L Mean Corpuscular Volume 99 FL (80-99) Mean Corpuscular Hemoglobin 32.4 PG (27.0-31.0) H Mean Corpuscular Hemoglobin Concent 32.8 G/DL (32.0-36.0) Red Cell Distribution Width 15.4 % (11.6-14.8) H Platelet Count 166 K/UL (150-450) Mean Platelet Volume 8.9 FL (6.5-10.1) Neutrophils (%) (Auto) % (45.0-75.0) Lymphocytes (%) (Auto) % (20.0-45.0) Monocytes (%) (Auto) % (1.0-10.0) Eosinophils (%) (Auto) % (0.0-3.0) Basophils (%) (Auto) % (0.0-2.0) Differential Total Cells Counted 100 Neutrophils % (Manual) 97 % (45-75) H Lymphocytes % (Manual) 2 % (20-45) L Monocytes % (Manual) 1 % (1-10) Eosinophils % (Manual) 0 % (0-3) Basophils % (Manual) 0 % (0-2) Band Neutrophils 0 % (0-8) Platelet Estimate Adequate Platelet Morphology Normal Hypochromasia 2+ Anisocytosis 1+ Sodium Level 156 MMOL/L (136-145) H Potassium Level 3.1 MMOL/L (3.5-5.1) L Chloride Level 120 MMOL/L (98-107) H Carbon Dioxide Level 28 MMOL/L (21-32) Anion Gap 9 mmol/L (5-15) Blood Urea Nitrogen 32 mg/dL (7-18) H Creatinine 0.8 MG/DL (0.55-1.30) Estimat Glomerular Filtration Rate > 60 mL/min (>60) Glucose Level 179 MG/DL (74-106) H Calcium Level 7.0 MG/DL (8.5-10.1) L Phosphorus Level 2.7 MG/DL (2.5-4.9) Magnesium Level 1.8 MG/DL (1.8-2.4) Total Bilirubin 0.4 MG/DL (0.2-1.0) Aspartate Amino Transf (AST/SGOT) 26 U/L (15-37) Alanine Aminotransferase (ALT/SGPT) 69 U/L (12-78) Alkaline Phosphatase 52 U/L (46-116) Total Protein 4.4 G/DL (6.4-8.2) L Albumin 1.1 G/DL (3.4-5.0) L Globulin 3.3 g/dL Albumin/Globulin Ratio 0.3 (1.0-2.7) L Arterial Blood pH 7.425 (7.350-7.450) Arterial Blood Partial Pressure CO2 41.3 mmHg (35.0-45.0) Arterial Blood Partial Pressure O2 52.7 mmHg (75.0-100.0) L Arterial Blood HCO3 26.5 mmol/L (22.0-26.0) H Arterial Blood Oxygen Saturation 84.7 % (95-100) *L Arterial Blood Base Excess 1.9 (-2-2) Jonathan Test Positive Josue Pantoja MD Jun 22, 2020 18:58
--- NOTE | 2020-06-22 19:15 | NUR ---
NURSE HAND-OFF REPORT: Latest Vital Signs: Temperature 98.8 , Pulse 58 , B/P 108 /73 , Respiratory Rate 22 , O2 SAT 100 , Mechanical Ventilator, O2 Flow Rate 15.0 . Vital Sign Comment: STABLe EKG Rhythm: Sinus Bradycardia Rhythm change?: N MD Notified?: Dr. Scarlett PRAKASH Response: In person notified of lowest HR of 42 Latest Osorio Fall Score: 70 Fall Risk: High Risk Safety Measures: Call light Within Reach, Bed Alarm Zone 1, Side Rails Side Rails x3, Bed position Low and Locked. Fall Precautions: Yellow Socks Door Sign Patient Fall Education Report given to Cole. Plan of care endorsed.
--- NOTE | 2020-06-22 19:40 | NUR ---
NURSE NOTES: PATIENT AWOKE, OPEN EYES, DID NOT FOLLOW COMMAND, ON ETT TO VENT, AC 26/TV 500/FIO2 90%/PEEP 10, O2 SATURATION OVER 96% NOTED, HR 60'S/MIN, SR NOTED, G TUBE INTACT AND PATENT, ONGOING VITAL AF 1.2 AT 60ML/HR, RESIDUE 30ML NOTED, KEPT HOB OVER 30 DEGREES, ASPIRATION AND SZ PRECAUTION, ABDOMEN SOFT, NON TENDER, RECTAL TUBE INTACT AND PATENT, BROWN COLOR STOOL OUTED, F/C INTACT AND PATENT, HARISH COLOR URINE OUTED, PICC LINE TO LEFT UPPER ARM, INTACT AND PATENT, RUNNING POTASSIUM 20MEQ/100ML AT 50ML/HR STATUS, ON P200 BED, MADE LOWER BED POSITION, ON BED ALARM AND LOCKED, PLACE CALL LIGHT WITHIN REACH, WILL CONTINUE TO MONITOR.
[2020-06-22] MEDS: Dyna-Hex 2% Top Sol 2oz TOPIC SCH (20:27)
--- NOTE | 2020-06-22 21:00 | NUR ---
NURSE NOTES: CHANGED FIO2 70% BY RT, O2 SATURATION 100% NOTED AT THIS TIME, WILL CONTINUE TO MONITOR.
--- NOTE | 2020-06-22 23:00 | NUR ---
NURSE NOTES: PATIENT AWOKE, VSS, NO PAIN OR SOB NOTED AT THIS TIME.
[2020-06-23] VITALS (24 sets, daily range): BP systolic 107–160; BP diastolic 54–168
--- NOTE | 2020-06-23 01:44 | NUR ---
NURSE NOTES: PATIENT ASLEEP STATUS, NO PAIN OR SOB NOTED AT THIS TIME, WILL CONTINUE TO MONITOR.
--- NOTE | 2020-06-23 04:01 | NUR ---
NURSE NOTES: MORNING CARE AND ORAL CARE WAS DONE, RECTAL TUBE INTACT AND PATENT, WILL CONTINUE PLAN OF CARE.
[2020-06-23] MEDS: Valproic Acid 250mg/5ml Liquid GT SCH ×3 (05:34→22:18)
[2020-06-23] MEDS: Hydrocortisone 100mg Inj IV SCH ×3 (05:34→22:18)
[2020-06-23] MEDS: Midodrine 10mg tab GT SCH ×3 (05:34→22:18)
[2020-06-23 05:53] LABS: HEMATOCRIT 25.1 % (37.0-47.0); HEMOGLOBIN 8.4 G/DL (12.0-16.0); MEAN CORPUSCULAR VOLUME 99 FL (80-99); PLATELET COUNT 150 K/UL (150-450); RED BLOOD COUNT 2.54 M/UL (4.20-5.40); RED CELL DISTRIBUTION WIDTH 15.2 % (11.6-14.8); WHITE BLOOD COUNT 16.3 K/UL (4.8-10.8)
[2020-06-23 05:55] LABS: ALANINE AMINOTRANSFERASE 86 U/L (12-78); ALBUMIN 1.3 G/DL (3.4-5.0); ALBUMIN/GLOBULIN RATIO 0.4 (1.0-2.7); ALKALINE PHOSPHATASE 54 U/L (46-116); ANION GAP 7 mmol/L (5-15); ASPARTATE AMINO TRANSFERASE 27 U/L (15-37); BILIRUBIN,TOTAL 0.6 MG/DL (0.2-1.0); BLOOD UREA NITROGEN 31 mg/dL (7-18); CALCIUM 7.6 MG/DL (8.5-10.1); CARBON DIOXIDE 28 MMOL/L (21-32); CHLORIDE 116 MMOL/L (98-107); CREATININE 0.8 MG/DL (0.55-1.30); PHOSPHORUS 6.3 MG/DL (2.5-4.9); POTASSIUM 3.4 MMOL/L (3.5-5.1); SODIUM 151 MMOL/L (136-145)
--- NOTE | 2020-06-23 06:07 | NUR ---
NURSE NOTES: PATIENT ASLEEP STATUS, NO ACUTE DISTRESS NOTED AT THIS TIME.
--- NOTE | 2020-06-23 07:08 | NUR ---
NURSE HAND-OFF REPORT: Latest Vital Signs: Temperature 98.5 , Pulse 62 , B/P 128 /66 , Respiratory Rate 24 , O2 SAT 99 , Mechanical Ventilator, O2 Flow Rate 15.0 . Vital Sign Comment: EKG Rhythm: Sinus Rhythm Rhythm change?: N MD Notified?: - MD Response: Latest Osorio Fall Score: 70 Fall Risk: High Risk Safety Measures: Call light Within Reach, Bed Alarm Zone 1, Side Rails Side Rails x3, Bed position Low and Locked. Fall Precautions: Yellow Socks Door Sign Patient Fall Education Report given to TAI DE LEON.
--- NOTE | 2020-06-23 07:09 | NUR ---
NURSE NOTES: Received patient from Cole RN. Patient is awake, alert and oriented x2. Sinus Rhythm on the heart monitor, HR 68. Receiving oxygen via ET Tube 7.5 22cm at the lip line, vent settings: AC 26, TV 500, FiO2 60%, PEEP 10. IV site is Left Upper Arm PICC patent and intact. G-tube is intact and receiving Vital AF at 60cc/hr. Gregorio catheter is intact and draining, rectal tube is also intact and draining. Bed is locked, placed in lowest position, side rails up x3, bed alarm on, head of bed elevated, call light within reach. Will continue to monitor.
--- NOTE | 2020-06-23 07:30 | General Progress Note ---
Assessment/Plan Assessment/Plan: 1. History of Down syndrome. 2. Dysphagia with G-tube. 3. Seizure disorder. 4. Hypothyroidism. 5. LEANN. 6. Pneumonia. 7. Sepsis. fu H&H ppi GTF hold GI procedures for now check C.diff stool ob + 1/2 Subjective ROS Limited/Unobtainable: No Allergies: Coded Allergies: No Known Allergies (Unverified , 10/16/18) Objective Last 24 Hour Vital Signs Date Time Temp Pulse Resp B/P (MAP) Pulse Ox O2 Delivery O2 Flow Rate FiO2 06/23/20 07:08 59 26 60 06/23/20 07:00 48 26 140/66 (90) 98 06/23/20 06:00 62 24 128/66 (86) 99 06/23/20 05:00 75 24 110/72 (85) 99 06/23/20 04:00 Mechanical Ventilator Mechanical Ventilator 06/23/20 04:00 60 06/23/20 04:00 98.5 106 32 119/101 (107) 100 06/23/20 04:00 106 06/23/20 03:40 68 26 60 06/23/20 03:00 60 23 125/74 (91) 99 06/23/20 02:00 59 24 114/56 (75) 98 06/23/20 01:00 60 26 124/54 (77) 99 06/23/20 00:00 60 06/23/20 00:00 Mechanical Ventilator Mechanical Ventilator 06/23/20 00:00 98.6 59 21 124/82 (96) 99 06/23/20 00:00 59 06/22/20 23:40 57 26 60 06/22/20 23:40 60 06/22/20 23:00 57 22 116/60 (78) 100 06/22/20 22:00 58 20 124/77 (93) 99 06/22/20 21:00 70 06/22/20 21:00 55 26 122/69 (86) 100 06/22/20 20:00 98.5 61 26 109/50 (69) 100 06/22/20 20:00 Mechanical Ventilator Mechanical Ventilator 06/22/20 20:00 90 06/22/20 19:45 62 06/22/20 19:30 64 26 70 06/22/20 19:00 58 22 108/73 (85) 100 06/22/20 18:00 53 26 131/66 (87) 100 06/22/20 17:00 65 25 117/57 (77) 100 06/22/20 16:09 98.8 61 23 113/45 (67) 99 06/22/20 16:00 Mechanical Ventilator Mechanical Ventilator 06/22/20 16:00 100 06/22/20 16:00 59 06/22/20 15:03 50 26 80 06/22/20 15:00 56 26 93/61 (72) 100 06/22/20 14:00 63 24 108/67 (81) 100 06/22/20 13:00 55 26 110/78 (89) 100 06/22/20 12:00 Mechanical Ventilator Mechanical Ventilator 06/22/20 12:00 98.4 59 26 120/87 (98) 100 06/22/20 12:00 60 06/22/20 12:00 100 06/22/20 11:00 55 26 111/70 (84) 100 06/22/20 10:59 55 26 90 06/22/20 10:00 58 26 121/104 (110) 100 06/22/20 09:00 67 26 128/68 (88) 100 06/22/20 08:56 100 06/22/20 08:00 98.9 59 24 124/72 (89) 99 06/22/20 08:00 65 06/22/20 08:00 Mechanical Ventilator Mechanical Ventilator 06/22/20 08:00 100 Intake and Output 06/22/20 06/23/20 19:00 07:00 Intake Total 720 ml 1120 ml Output Total 550 ml 690 ml Balance 170 ml 430 ml IV Total 200 ml Tube Feeding 720 ml 720 ml Other 200 ml Output Urine Total 550 ml 590 ml Stool Total 100 ml # Bowel Movements 1 Laboratory Tests 06/22/20 08:04: Arterial Blood pH 7.425, Arterial Blood Partial Pressure CO2 41.3, Arterial Blood Partial Pressure O2 52.7L, Arterial Blood HCO3 26.5H, Arterial Blood Oxygen Saturation 84.7*L, Arterial Blood Base Excess 1.9, Jonathan Test Positive 06/23/20 03:40: White Blood Count 16.3H, Red Blood Count 2.54L, Hemoglobin 8.4L, Hematocrit 25.1L, Mean Corpuscular Volume 99, Mean Corpuscular Hemoglobin 33.1H, Mean Corpuscular Hemoglobin Concent 33.5, Red Cell Distribution Width 15.2H, Platelet Count 150, Mean Platelet Volume 9.2, Neutrophils (%) (Auto) , Lymphocytes (%) (Auto) , Monocytes (%) (Auto) , Eosinophils (%) (Auto) , Basophils (%) (Auto) , Neutrophils % (Manual) [Pending], Lymphocytes % (Manual) [Pending], Platelet Estimate [Pending], Platelet Morphology [Pending], Sodium Level 151H, Potassium Level 3.4L, Chloride Level 116H, Carbon Dioxide Level 28, Anion Gap 7, Blood Urea Nitrogen 31H, Creatinine 0.8, Estimat Glomerular Filtration Rate > 60, Glucose Level 197H, Calcium Level 7.6L, Phosphorus Level 6.3H, Magnesium Level 1.8, Total Bilirubin 0.6, Aspartate Amino Transf (AST/SGOT ) 27, Alanine Aminotransferase (ALT/SGPT) 86H, Alkaline Phosphatase 54, Total Protein 4.8L, Albumin 1.3L, Globulin 3.5, Albumin/Globulin Ratio 0.4L Height (Feet): 5 Height (Inches): 3.00 Weight (Pounds): 172 General Appearance: lethargic EENT: normal ENT inspection Neck: supple Cardiovascular: normal rate Respiratory/Chest: decreased breath sounds Abdomen: normal bowel sounds, non tender, soft Extremities: non-tender Nehemiah Perez MD Jun 23, 2020 07:30
[2020-06-23] MEDS: Norepinephrine Bitartrate 16 MG in D5W 500ml 484 ML IV SCH (07:45)
[2020-06-23] MEDS: Pantoprazole Inj IV SCH (08:36)
--- NOTE | 2020-06-23 08:49 | NUR ---
NURSE NOTES: Turned and repositioned patient. Medications given as prescribed, no adverse reaction noted. Patient is afebrile and FLACC score 0.
--- NOTE | 2020-06-23 09:08 | NUR ---
RD ASSESSMENT & RECOMMENDATIONS SEE CARE ACTIVITY FOR COMPLETE ASSESSMENT DAILY ESTIMATED NEEDS: Needs based on CRITICAL CARE, 50kg 22-27 kcals/kg 8077-3836 total kcals 1.25-2 g protein/kg 63-100 g total protein 25-30 mL/kg 2531-0384 total fluid mLs NUTRITION DIAGNOSIS: Swallowing difficulty r/t dysphagia as evidenced by pt w/ Downs Syndrome, PEG dep for all nutritional needs, now intubated, now off pressor support, ICU status. CURRENT TF:Vital AF 1.2 @ 60ml/hr x 22 hrs ENTERAL NUTRITION RECOMMENDATIONS: VITAL AF 1.2 @ 50ml/hr x22 hrs to provide 1100ml, 1320 kcal, 83g pro, 892ml free H2O - LOWER goal rate to 50ml/hr not to exceed est kcal needs -> will meet 100% est kcal/prot needs - Hold TF 1 hr before and after synthroid meds. - Flush per MD, HOB over 30 degrees. ADDITIONAL RECOMMENDATIONS: 1) Ht of 61 inches per SNF; recalibrate bed scale for accurate CBW 2) Monitor BG closely w/ Solucortef-> rec lawanda for BG control 3) Monitor hemodynamic stability: pressors held at this time 4) Wound healing: Continue Vit C 250mg QD + [place] BID 5) Monitor lytes, replete as needed (low K)/ trend phos (elev 06/23) 6) Monitor TF tolerance: h/o elev residuals, now well tolerated .
--- NOTE | 2020-06-23 09:30 | NUR ---
NURSE NOTES: Patient seen and assessed by Carla Jj NP.
--- NOTE | 2020-06-23 10:30 | NUR ---
NURSE NOTES: Informed Dr. Allred regarding patient being hypertensive and Potassium level. Orders received.
[2020-06-23] MEDS: DOPamine 400mg/250ml 250 ML IV SCH (10:50)
--- NOTE | 2020-06-23 11:24 | Pulmonolgy Critical Care Note ---
Critical Care - Asmt/Plan Problems: (1) Acute respiratory failure (2) Bacteremia (3) Pneumonia (4) Sepsis (5) HCAP (healthcare-associated pneumonia) (6) Seizure disorder (7) Down's syndrome Respiratory: monitor respiratory rate, adjust FIO2, CXR Cardiac: continue pressors, continue to monitor HR/BP Renal: F/U I&O, keep IV fluid, check electrolytes Infectious Disease: check cultures, continue antibiotics Gastrointestinal: continue feedings/current rate Endocrine: monitor blood sugar, continue sliding scale insulin Hematologic: monitor H/H, transfuse if hgb<8.5 Neurologic: PRN Ativan, keep patient comfortable Time Spent (Minutes): 40 Notes Reviewed: chicken cleaner, cardio, 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 with: nurses, consultants, case monitorfreight manager - Objective Last 24 Hour Vital Signs Date Time Temp Pulse Resp B/P (MAP) Pulse Ox O2 Delivery O2 Flow Rate FiO2 06/23/20 11:00 61 23 137/62 (87) 90 06/23/20 10:50 160/99 06/23/20 10:00 52 26 160/99 (119) 93 06/23/20 09:00 57 23 138/118 (125) 96 06/23/20 08:00 98.8 55 24 141/75 (97) 98 06/23/20 08:00 60 06/23/20 08:00 Mechanical Ventilator Mechanical Ventilator 06/23/20 07:47 57 06/23/20 07:45 140/66 06/23/20 07:08 59 26 60 06/23/20 07:00 48 26 140/66 (90) 98 06/23/20 06:00 62 24 128/66 (86) 99 06/23/20 05:00 75 24 110/72 (85) 99 06/23/20 04:00 Mechanical Ventilator Mechanical Ventilator 06/23/20 04:00 60 06/23/20 04:00 98.5 106 32 119/101 (107) 100 06/23/20 04:00 106 06/23/20 03:40 68 26 60 06/23/20 03:00 60 23 125/74 (91) 99 06/23/20 02:00 59 24 114/56 (75) 98 06/23/20 01:00 60 26 124/54 (77) 99 06/23/20 00:00 60 06/23/20 00:00 Mechanical Ventilator Mechanical Ventilator 06/23/20 00:00 98.6 59 21 124/82 (96) 99 06/23/20 00:00 59 06/22/20 23:40 57 26 60 06/22/20 23:40 60 06/22/20 23:00 57 22 116/60 (78) 100 06/22/20 22:00 58 20 124/77 (93) 99 06/22/20 21:00 70 06/22/20 21:00 55 26 122/69 (86) 100 06/22/20 20:00 98.5 61 26 109/50 (69) 100 06/22/20 20:00 Mechanical Ventilator Mechanical Ventilator 06/22/20 20:00 90 06/22/20 19:45 62 06/22/20 19:30 64 26 70 06/22/20 19:00 58 22 108/73 (85) 100 06/22/20 18:00 53 26 131/66 (87) 100 06/22/20 17:00 65 25 117/57 (77) 100 06/22/20 16:09 98.8 61 23 113/45 (67) 99 06/22/20 16:00 Mechanical Ventilator Mechanical Ventilator 06/22/20 16:00 100 06/22/20 16:00 59 06/22/20 15:03 50 26 80 06/22/20 15:00 56 26 93/61 (72) 100 06/22/20 14:00 63 24 108/67 (81) 100 06/22/20 13:00 55 26 110/78 (89) 100 06/22/20 12:00 Mechanical Ventilator Mechanical Ventilator 06/22/20 12:00 98.4 59 26 120/87 (98) 100 06/22/20 12:00 60 06/22/20 12:00 100 Status: awake Condition: critical HEENT: atraumatic, normocephalic Lungs: rales, rhonchi Heart: HR/BP stable Abdomen: soft, non-tender Extremities: no C/C/E Decubiti: location Micro: Microbiology Date/Time Source Procedure Growth Status 06/22/20 18:05 Stool Clostridium difficile Toxin Assay - Final Complete Accucheck: 131 Critical Care - Subjective ROS Limited/Unobtainable: Yes Condition: critical EKG Rhythm: Sinus Rhythm FI02: 60 Vent Support Breath Rate: 26 Vent Support Mode: AC Vent Tidal Volume: 500 Sputum Amount: Moderate PEEP: 10.0 PIP: 46 Tube Feeding Amount: 60 I&O: Intake and Output 06/22/20 06/23/20 19:00 07:00 Intake Total 720 ml 1120 ml Output Total 550 ml 690 ml Balance 170 ml 430 ml IV Total 200 ml Tube Feeding 720 ml 720 ml Other 200 ml Output Urine Total 550 ml 590 ml Stool Total 100 ml # Bowel Movements 1 CXR: ET in good position ET-Tube: 7.5 ET Position: 22 Labs: Laboratory Tests Test 06/23/20 03:40 White Blood Count 16.3 K/UL (4.8-10.8) H Red Blood Count 2.54 M/UL (4.20-5.40) L Hemoglobin 8.4 G/DL (12.0-16.0) L Hematocrit 25.1 % (37.0-47.0) L Mean Corpuscular Volume 99 FL (80-99) Mean Corpuscular Hemoglobin 33.1 PG (27.0-31.0) H Mean Corpuscular Hemoglobin Concent 33.5 G/DL (32.0-36.0) Red Cell Distribution Width 15.2 % (11.6-14.8) H Platelet Count 150 K/UL (150-450) Mean Platelet Volume 9.2 FL (6.5-10.1) Neutrophils (%) (Auto) % (45.0-75.0) Lymphocytes (%) (Auto) % (20.0-45.0) Monocytes (%) (Auto) % (1.0-10.0) Eosinophils (%) (Auto) % (0.0-3.0) Basophils (%) (Auto) % (0.0-2.0) Differential Total Cells Counted 100 Neutrophils % (Manual) 89 % (45-75) H Lymphocytes % (Manual) 4 % (20-45) L Monocytes % (Manual) 7 % (1-10) Eosinophils % (Manual) 0 % (0-3) Basophils % (Manual) 0 % (0-2) Band Neutrophils 0 % (0-8) Platelet Estimate Adequate Platelet Morphology Normal Hypochromasia 1+ Anisocytosis 1+ Sodium Level 151 MMOL/L (136-145) H Potassium Level 3.4 MMOL/L (3.5-5.1) L Chloride Level 116 MMOL/L (98-107) H Carbon Dioxide Level 28 MMOL/L (21-32) Anion Gap 7 mmol/L (5-15) Blood Urea Nitrogen 31 mg/dL (7-18) H Creatinine 0.8 MG/DL (0.55-1.30) Estimat Glomerular Filtration Rate > 60 mL/min (>60) Glucose Level 197 MG/DL (74-106) H Calcium Level 7.6 MG/DL (8.5-10.1) L Phosphorus Level 6.3 MG/DL (2.5-4.9) H Magnesium Level 1.8 MG/DL (1.8-2.4) Total Bilirubin 0.6 MG/DL (0.2-1.0) Aspartate Amino Transf (AST/SGOT) 27 U/L (15-37) Alanine Aminotransferase (ALT/SGPT) 86 U/L (12-78) H Alkaline Phosphatase 54 U/L (46-116) Total Protein 4.8 G/DL (6.4-8.2) L Albumin 1.3 G/DL (3.4-5.0) L Globulin 3.5 g/dL Albumin/Globulin Ratio 0.4 (1.0-2.7) L Elayne Allred MD Jun 23, 2020 11:24
--- NOTE | 2020-06-23 11:46 | NUR ---
NURSE NOTES: Endotracheal suctioning done on patient, O2 saturation raised from 89% to 99%.
--- NOTE | 2020-06-23 13:29 | Nephrology Progress Note ---
Assessment/Plan Problem List: (1) LEANN (acute kidney injury) (2) Respiratory failure requiring intubation (3) Down's syndrome (4) Seizure disorder (5) Hypothyroidism Assessment Acute renal failure, likely due to hypotension Acute respiratory distress, hypoxia Seizure disorder Hypothyroidism Down syndrome Full code Fluid challenge with IV fluids and albumin Midodrine for BP above 100 systolic Check TSH level Check Correct level Monitor renal parameters Urine studies Per orders Plan June 23: Labs reviewed. Patient continues to be on ventilator. D5W for high sodium and also potassium chloride intravenously as supplement given. Hemoglobin 8.4. Continue to monitor electrolytes and renal parameters. June 22: Labs reviewed. Low potassium and high sodium noted. Hemoglobin 8.1 stable. Aim to correct abnormal electrolyte. Continue rest. Will give 2 boluses of D5W 500 cc. June 21: Lab reviewed. Abnormal electrolytes noted and addressed. June 20: Labs reviewed. Potassium supplement given. Patient remains full code. Continue per consultants. June 19: Lab reviewed. Electrolyte abnormalities addressed. Continue per pulmonary and ID. June 18: Lab reviewed. Status unchanged. Serum sodium 151 unchanged. Stable from renal standpoint of view. June 17: Labs reviewed. Status quo. D5W 500 cc IV ordered. Continue to monitor renal parameters. June 16: Status quo. Labs reviewed. Overall condition unchanged. Patient was transfused and hemoglobin higher. Continue current management. Patient remains full code. June 15: Status quo. Overall condition poor. Very low albumin. Edematous. Hypotensive. Hemoglobin lower. Anemia work-up ordered. I favor transfusion 2 units of packed RBCs. Patient remains full code. I favor supportive care only. Will discuss. June 14: Electrolyte abnormalities addressed. Serum creatinine lower. Continue per current management. June 13: Status unchanged. Lab reviewed. Serum potassium 2.7. IV potassium chloride ordered. Serum creatinine low at 1.6 stable. Blood pressure 90s systolic June 12: Status quo. Labs reviewed. Renal parameters stable. Serum creatinine down to 1.6. Medication list reviewed. Continues to be on midodrine. Continue per consultants. June 11: Status quo. Labs reviewed. Electrolytes adjusted. Serum creatinine down to 1.8. Continue per consultants. June 10: Status quo. Labs reviewed. Phosphorus supplement IV given. Serum creatinine 2. Continue per consultants. June 09: Requires less pressors. Albumin bolus given. 1 dose of Lasix IV ordered as the patient severely edematous. Patient serum albumin is very low. Continue per consultants. June 08: Continues to be intubated. Labs reviewed. Serum creatinine 1.9 unchanged. Blood pressure more stable. Off 1 of the pressors. Continue to monitor renal parameters. Continue per consultants. Patient now on hydrocortisone 100 mg every 8 hours. Will decrease IV fluid. Normal saline down to 50 cc an hour. June 07: Intubated. Labs reviewed. Creatinine 1.9 unchanged. Continue same treatment plan. Per consultants. Overall poor prognosis since the patient remains on pressors and her pulmonary status is worsening. June 06: Remains intubated. Labs reviewed. Creatinine 1.9. Blood pressure systolic 90s. Continue per consultants. June 05: Remains intubated. Labs reviewed. Serum creatinine lower to 2. Vancomycin level lower. Remains hypotensive on pressors. Will increase midodrine to 10 mg every 8 hours. Continue per consultants. Continue to monitor renal parameters. June 04: Patient now in ICU. Intubated. On pressors. Labs reviewed. Will increase midodrine. Aim to keep blood pressure over 100 systolic. Will give albumin bolus. Will check vancomycin level which was elevated when checked previously on June 01. Will monitor renal parameters. Continue per consultants. Subjective ROS Limited/Unobtainable: Yes Objective Objective Last 24 Hour Vital Signs Date Time Temp Pulse Resp B/P (MAP) Pulse Ox O2 Delivery O2 Flow Rate FiO2 06/23/20 12:31 70 26 60 06/23/20 12:00 60 06/23/20 12:00 Mechanical Ventilator Mechanical Ventilator 06/23/20 12:00 62 18 115/65 (82) 96 06/23/20 12:00 63 06/23/20 11:00 61 23 137/62 (87) 90 06/23/20 10:50 160/99 06/23/20 10:00 52 26 160/99 (119) 93 06/23/20 09:00 57 23 138/118 (125) 96 06/23/20 08:00 98.8 55 24 141/75 (97) 98 06/23/20 08:00 60 06/23/20 08:00 Mechanical Ventilator Mechanical Ventilator 06/23/20 07:47 57 06/23/20 07:45 140/66 06/23/20 07:08 59 26 60 06/23/20 07:00 48 26 140/66 (90) 98 06/23/20 06:00 62 24 128/66 (86) 99 06/23/20 05:00 75 24 110/72 (85) 99 06/23/20 04:00 Mechanical Ventilator Mechanical Ventilator 06/23/20 04:00 60 06/23/20 04:00 98.5 106 32 119/101 (107) 100 06/23/20 04:00 106 06/23/20 03:40 68 26 60 06/23/20 03:00 60 23 125/74 (91) 99 06/23/20 02:00 59 24 114/56 (75) 98 06/23/20 01:00 60 26 124/54 (77) 99 06/23/20 00:00 60 06/23/20 00:00 Mechanical Ventilator Mechanical Ventilator 06/23/20 00:00 98.6 59 21 124/82 (96) 99 06/23/20 00:00 59 06/22/20 23:40 57 26 60 06/22/20 23:40 60 06/22/20 23:00 57 22 116/60 (78) 100 06/22/20 22:00 58 20 124/77 (93) 99 06/22/20 21:00 70 06/22/20 21:00 55 26 122/69 (86) 100 06/22/20 20:00 98.5 61 26 109/50 (69) 100 06/22/20 20:00 Mechanical Ventilator Mechanical Ventilator 06/22/20 20:00 90 06/22/20 19:45 62 06/22/20 19:30 64 26 70 06/22/20 19:00 58 22 108/73 (85) 100 06/22/20 18:00 53 26 131/66 (87) 100 06/22/20 17:00 65 25 117/57 (77) 100 06/22/20 16:09 98.8 61 23 113/45 (67) 99 06/22/20 16:00 Mechanical Ventilator Mechanical Ventilator 06/22/20 16:00 100 06/22/20 16:00 59 06/22/20 15:03 50 26 80 06/22/20 15:00 56 26 93/61 (72) 100 06/22/20 14:00 63 24 108/67 (81) 100 Intake and Output 06/22/20 06/23/20 19:00 07:00 Intake Total 720 ml 1120 ml Output Total 550 ml 690 ml Balance 170 ml 430 ml IV Total 200 ml Tube Feeding 720 ml 720 ml Other 200 ml Output Urine Total 550 ml 590 ml Stool Total 100 ml # Bowel Movements 1 Laboratory Tests 06/23/20 03:40: White Blood Count 16.3H, Red Blood Count 2.54L, Hemoglobin 8.4L, Hematocrit 25.1L, Mean Corpuscular Volume 99, Mean Corpuscular Hemoglobin 33.1H, Mean Corpuscular Hemoglobin Concent 33.5, Red Cell Distribution Width 15.2H, Platelet Count 150, Mean Platelet Volume 9.2, Neutrophils (%) (Auto) , Lymphocytes (%) (Auto) , Monocytes (%) (Auto) , Eosinophils (%) (Auto) , Basophils (%) (Auto) , Differential Total Cells Counted 100, Neutrophils % ( Manual) 89H, Lymphocytes % (Manual) 4L, Monocytes % (Manual) 7, Eosinophils % ( Manual) 0, Basophils % (Manual) 0, Band Neutrophils 0, Platelet Estimate Adequate, Platelet Morphology Normal, Hypochromasia 1+, Anisocytosis 1+, Sodium Level 151H, Potassium Level 3.4L, Chloride Level 116H, Carbon Dioxide Level 28, Anion Gap 7, Blood Urea Nitrogen 31H, Creatinine 0.8, Estimat Glomerular Filtration Rate > 60, Glucose Level 197H, Calcium Level 7.6L, Phosphorus Level 6.3H, Magnesium Level 1.8, Total Bilirubin 0.6, Aspartate Amino Transf (AST/SGOT ) 27, Alanine Aminotransferase (ALT/SGPT) 86H, Alkaline Phosphatase 54, Total Protein 4.8L, Albumin 1.3L, Globulin 3.5, Albumin/Globulin Ratio 0.4L Height (Feet): 5 Height (Inches): 3.00 Weight (Pounds): 172 General Appearance: no apparent distress EENT: other - On ventilator Cardiovascular: normal rate Respiratory/Chest: decreased breath sounds Abdomen: distended Keron Pitt MD Jun 23, 2020 13:29
--- NOTE | 2020-06-23 15:01 | Infectious Diseases Prog Note ---
Assessment/Plan ASSESSMENT: sp code blue 06/03 Septic Shock; SP Fever, recurrent Leukocytosis; persistent/fluctuating -06/17 u/a no pyuria -06/16 Bcx NTD (Picc line) -06/14 Bcx NTD ucx Neg sp cx C. parapsilopsis -06/03 u/a no pyuria Pneumonia.- COVID 19 neg x3 Acute hypoxic resp failure on VM> NRB 15l 100%; hypoxic on ABG> now VDRF 06/03 - Fio2 80% >100% 06/05> 60% 06/09 >80% 06/10 >95% 06/18 >90% 06/22 >60% 06/23 -06/22 CXR: Improved aeration of both lungs. -06/13 CXR:Small bilateral pleural effusions with minor edema. Stable edema with mild worsening in the degree of pleural effusion on the right. -06/09 sp cx Neg 06/08 CXR: Extensive bilateral interstitial and airspace disease appears similar to the prior exam. Moderate to large bilateral pleural effusions appear unchanged. 06/05 CXR: Increasing left upper lobe dense consolidation and likely increasing bilateral pleural fluid. Persistent diffuse dense consolidation elsewhere -06/03 sp cx normal resp marie -06/02 CXR: Increased atelectasis of the right lung, since prior exam of 3 days earlier. New or increased right pleural effusion. Increased left basilar consolidation and/or pleural fluid -COVID Rapid PCR neg 05/31, 05/31, 06/03 -05/30 spc x Group G strep -05/30 CXR: Reduced lung volumes. Patchy bilateral predominantly interstitial pulmonary opacities. Could be from edema and/or pneumonia. There is a broader differential. -legionella ag urine, blasto ab, Histo ab, HIV ab screen, FRANCIS, ANCA neg Persistent, high grade bacteremia- -05/30 Bcx 4/4 sets S. haemolyticus; 05/31 Bcx 3/4 S/ epi; 06/04 Bcx 1.4 S. warnerri; 06/06 Bcx Neg -2d echo: no vegetaions seen ua/ wbc 10-15, nit neg, leuk +1; ucx Neg LEANN; -supratherapeutic vanco levels -Seizure disorder. - Hypothyroidism. - Down syndrome. History of PEG tube placement. [place] resident PLAN: Continue to monitor off abx 06/22 SP Meropenem #18, IV AMikacin #7 06/12/20 SP Daptomycin #11 06/10 SP MIcafungin #7, Linezolid #5 06/05 SP Azithromycin #7/7 06/03 SP Ceftriaxone #2 06/02 SP IV Vancomycin #4, Zosyn #4 05/30 SP Cefepime x1, Flagyl x1 - Monitor CBC, BMP. .f/u Repeat cx - COVID neg x3 - Monitor chest x-ray. - Monitor the patient's clinical course and labs. Based on those, we will do further recommendation. -f/u Bcx from picc line, cdiff if diarrhea -f/u Fungitell, asp ag, flow cytometry -Once stable, CT chest/abd/pw/ given persistent leukocytosis Thank you, Dr. Allred, for allowing me to participate in the care of this patient. I will follow the patient with you at this hospitalization. Discussed with RN Subjective Allergies: Coded Allergies: No Known Allergies (Unverified , 10/16/18) afebrile wbc increased now off abx fio2 down to 60% cdif neg Objective Last 24 Hour Vital Signs Date Time Temp Pulse Resp B/P (MAP) Pulse Ox O2 Delivery O2 Flow Rate FiO2 06/23/20 14:00 47 26 107/57 (74) 96 06/23/20 13:00 62 22 111/59 (76) 95 06/23/20 12:31 70 26 60 06/23/20 12:00 98.4 62 18 115/65 (82) 96 06/23/20 12:00 60 06/23/20 12:00 Mechanical Ventilator Mechanical Ventilator 06/23/20 12:00 62 18 115/65 (82) 96 06/23/20 12:00 63 06/23/20 11:00 61 23 137/62 (87) 90 06/23/20 10:50 160/99 06/23/20 10:00 52 26 160/99 (119) 93 06/23/20 09:00 57 23 138/118 (125) 96 06/23/20 08:00 98.8 55 24 141/75 (97) 98 06/23/20 08:00 60 06/23/20 08:00 Mechanical Ventilator Mechanical Ventilator 06/23/20 07:47 57 06/23/20 07:45 140/66 06/23/20 07:08 59 26 60 06/23/20 07:00 48 26 140/66 (90) 98 06/23/20 06:00 62 24 128/66 (86) 99 06/23/20 05:00 75 24 110/72 (85) 99 06/23/20 04:00 Mechanical Ventilator Mechanical Ventilator 06/23/20 04:00 60 06/23/20 04:00 98.5 106 32 119/101 (107) 100 06/23/20 04:00 106 06/23/20 03:40 68 26 60 06/23/20 03:00 60 23 125/74 (91) 99 06/23/20 02:00 59 24 114/56 (75) 98 06/23/20 01:00 60 26 124/54 (77) 99 06/23/20 00:00 60 06/23/20 00:00 Mechanical Ventilator Mechanical Ventilator 06/23/20 00:00 98.6 59 21 124/82 (96) 99 06/23/20 00:00 59 06/22/20 23:40 57 26 60 06/22/20 23:40 60 06/22/20 23:00 57 22 116/60 (78) 100 06/22/20 22:00 58 20 124/77 (93) 99 06/22/20 21:00 70 06/22/20 21:00 55 26 122/69 (86) 100 06/22/20 20:00 98.5 61 26 109/50 (69) 100 06/22/20 20:00 Mechanical Ventilator Mechanical Ventilator 06/22/20 20:00 90 06/22/20 19:45 62 06/22/20 19:30 64 26 70 06/22/20 19:00 58 22 108/73 (85) 100 06/22/20 18:00 53 26 131/66 (87) 100 06/22/20 17:00 65 25 117/57 (77) 100 06/22/20 16:09 98.8 61 23 113/45 (67) 99 06/22/20 16:00 Mechanical Ventilator Mechanical Ventilator 06/22/20 16:00 100 06/22/20 16:00 59 06/22/20 15:03 50 26 80 06/22/20 15:00 56 26 93/61 (72) 100 Height (Feet): 5 Height (Inches): 3.00 Weight (Pounds): 172 HEENT: No pale conjunctivae. No icterus. ETT in place NECK: No lymphadenopathy. CHEST: Coarse breathing sounds. HEART: S1 and S2. ABDOMEN: Soft. PEG tube in place. EXTREMITIES: No cyanosis at this time . SKIN: no rash Microbiology Date/Time Source Procedure Growth Status 06/22/20 18:05 Stool Clostridium difficile Toxin Assay - Final Complete Laboratory Tests Test 06/23/20 03:40 White Blood Count 16.3 K/UL (4.8-10.8) H Red Blood Count 2.54 M/UL (4.20-5.40) L Hemoglobin 8.4 G/DL (12.0-16.0) L Hematocrit 25.1 % (37.0-47.0) L Mean Corpuscular Volume 99 FL (80-99) Mean Corpuscular Hemoglobin 33.1 PG (27.0-31.0) H Mean Corpuscular Hemoglobin Concent 33.5 G/DL (32.0-36.0) Red Cell Distribution Width 15.2 % (11.6-14.8) H Platelet Count 150 K/UL (150-450) Mean Platelet Volume 9.2 FL (6.5-10.1) Neutrophils (%) (Auto) % (45.0-75.0) Lymphocytes (%) (Auto) % (20.0-45.0) Monocytes (%) (Auto) % (1.0-10.0) Eosinophils (%) (Auto) % (0.0-3.0) Basophils (%) (Auto) % (0.0-2.0) Differential Total Cells Counted 100 Neutrophils % (Manual) 89 % (45-75) H Lymphocytes % (Manual) 4 % (20-45) L Monocytes % (Manual) 7 % (1-10) Eosinophils % (Manual) 0 % (0-3) Basophils % (Manual) 0 % (0-2) Band Neutrophils 0 % (0-8) Platelet Estimate Adequate Platelet Morphology Normal Hypochromasia 1+ Anisocytosis 1+ Sodium Level 151 MMOL/L (136-145) H Potassium Level 3.4 MMOL/L (3.5-5.1) L Chloride Level 116 MMOL/L (98-107) H Carbon Dioxide Level 28 MMOL/L (21-32) Anion Gap 7 mmol/L (5-15) Blood Urea Nitrogen 31 mg/dL (7-18) H Creatinine 0.8 MG/DL (0.55-1.30) Estimat Glomerular Filtration Rate > 60 mL/min (>60) Glucose Level 197 MG/DL (74-106) H Calcium Level 7.6 MG/DL (8.5-10.1) L Phosphorus Level 6.3 MG/DL (2.5-4.9) H Magnesium Level 1.8 MG/DL (1.8-2.4) Total Bilirubin 0.6 MG/DL (0.2-1.0) Aspartate Amino Transf (AST/SGOT) 27 U/L (15-37) Alanine Aminotransferase (ALT/SGPT) 86 U/L (12-78) H Alkaline Phosphatase 54 U/L (46-116) Total Protein 4.8 G/DL (6.4-8.2) L Albumin 1.3 G/DL (3.4-5.0) L Globulin 3.5 g/dL Albumin/Globulin Ratio 0.4 (1.0-2.7) L Current Medications Medications (Trade) Dose Ordered Sig/Katy Route PRN Reason Start Time Stop Time Status Last Admin Dose Admin Acetaminophen (Tylenol) 650 mg Q4H PRN GT FEVER 06/03/20 11:45 07/03/20 11:44 06/15/20 03:17 Chlorhexidine Gluconate (Alla-Hex 2%) 1 applic DAILY@1999 TOPIC 06/08/20 20:00 09/06/20 19:59 06/22/20 20:27 Clotrimazole (Lotrimin) 1 applic Q12HR TOPIC 06/07/20 13:00 09/05/20 12:59 06/23/20 08:37 Dextrose 500 ml @ 500 mls/hr ONCE ONCE IV 06/23/20 17:00 06/23/20 17:59 Dextrose (Dextrose 50%) 25 ml Q30M PRN IV Hypoglycemia 06/03/20 11:30 08/28/20 11:29 Dextrose (Dextrose 50%) 50 ml Q30M PRN IV Hypoglycemia 06/03/20 11:30 08/28/20 11:29 Dopamine HCl/ Dextrose 250 ml @ 0 mls/hr Q24H IV 06/12/20 11:15 09/10/20 11:14 06/14/20 19:47 Hydrocortisone (Solu-CORTEF) 100 mg EVERY 8 HOURS IV 06/07/20 14:00 09/05/20 13:59 06/23/20 13:28 Levothyroxine Sodium (Synthroid) 75 mcg DAILY GT 06/04/20 09:00 06/30/20 08:59 06/23/20 08:36 Midodrine (Pro-Amatine) 10 mg Q8HR GT 06/05/20 14:00 09/03/20 13:59 06/23/20 13:28 Norepinephrine Bitartrate 16 mg/ Dextrose 500 ml @ 0 mls/hr Q24H IV 06/08/20 07:45 07/07/20 12:59 06/12/20 08:43 Ondansetron HCl (Zofran) 4 mg Q6H PRN IVP Nausea & Vomiting 06/03/20 12:00 06/29/20 11:59 Pantoprazole (Protonix) 40 mg DAILY IV 06/04/20 09:00 06/30/20 08:59 06/23/20 08:36 Phenylephrine HCl 50 mg/Dextrose 250 ml @ 0 mls/hr Q24H PRN IV For hypotension 06/06/20 17:45 07/06/20 17:44 06/08/20 01:49 Polyethylene Glycol (Miralax) 17 gm DAILYPRN PRN GT Constipation 06/03/20 12:00 06/29/20 11:59 Potassium Chloride 100 ml @ 50 mls/hr Q2H IVPB 06/23/20 11:00 06/23/20 14:59 06/23/20 13:28 Valproic Acid (Depakene) 500 mg EVERY 8 HOURS GT 06/03/20 14:00 06/29/20 21:59 06/23/20 13:28 Suki Camejo M.D. Jun 23, 2020 15:01
[2020-06-23] MEDS ORDERED: NS 275ml ONE ×2 (15:13→15:38)
[2020-06-23] MEDS ORDERED: Tubing IV Secondary IV ONE ×2 (15:13→15:38)
[2020-06-23] MEDS ORDERED: D5W 550ml IV ONE (15:38)
--- NOTE | 2020-06-23 16:37 | Internal Med Progress Note ---
Subjective Date of Service: Jun 23, 2020 Physician Name Joni Copeland Attending Physician Elayne Allred MD Current Medications Medications (Trade) Dose Ordered Sig/Katy Route PRN Reason Start Time Stop Time Status Last Admin Dose Admin Acetaminophen (Tylenol) 650 mg Q4H PRN GT FEVER 06/03/20 11:45 07/03/20 11:44 06/15/20 03:17 Chlorhexidine Gluconate (Alla-Hex 2%) 1 applic DAILY@1999 TOPIC 06/08/20 20:00 09/06/20 19:59 06/22/20 20:27 Clotrimazole (Lotrimin) 1 applic Q12HR TOPIC 06/07/20 13:00 09/05/20 12:59 06/23/20 08:37 Dextrose 500 ml @ 500 mls/hr ONCE ONCE IV 06/23/20 17:00 06/23/20 17:59 Dextrose (Dextrose 50%) 25 ml Q30M PRN IV Hypoglycemia 06/03/20 11:30 08/28/20 11:29 Dextrose (Dextrose 50%) 50 ml Q30M PRN IV Hypoglycemia 06/03/20 11:30 08/28/20 11:29 Dopamine HCl/ Dextrose 250 ml @ 0 mls/hr Q24H IV 06/12/20 11:15 09/10/20 11:14 06/14/20 19:47 Hydrocortisone (Solu-CORTEF) 100 mg EVERY 8 HOURS IV 06/07/20 14:00 09/05/20 13:59 06/23/20 13:28 Levothyroxine Sodium (Synthroid) 75 mcg DAILY GT 06/04/20 09:00 06/30/20 08:59 06/23/20 08:36 Midodrine (Pro-Amatine) 10 mg Q8HR GT 06/05/20 14:00 09/03/20 13:59 06/23/20 13:28 Norepinephrine Bitartrate 16 mg/ Dextrose 500 ml @ 0 mls/hr Q24H IV 06/08/20 07:45 07/07/20 12:59 06/12/20 08:43 Ondansetron HCl (Zofran) 4 mg Q6H PRN IVP Nausea & Vomiting 06/03/20 12:00 06/29/20 11:59 Pantoprazole (Protonix) 40 mg DAILY IV 06/04/20 09:00 06/30/20 08:59 06/23/20 08:36 Phenylephrine HCl 50 mg/Dextrose 250 ml @ 0 mls/hr Q24H PRN IV For hypotension 06/06/20 17:45 07/06/20 17:44 06/08/20 01:49 Polyethylene Glycol (Miralax) 17 gm DAILYPRN PRN GT Constipation 06/03/20 12:00 06/29/20 11:59 Valproic Acid (Depakene) 500 mg EVERY 8 HOURS GT 06/03/20 14:00 06/29/20 21:59 06/23/20 13:28 Allergies: Coded Allergies: No Known Allergies (Unverified , 10/16/18) ROS Limited/Unobtainable: Yes Subjective 59 YO F with Down's syndrome admitted with hypoxia. Now sepsis and pneumonia. Cover for Int Med-[facility]. ICU. Intubated and sedated Objective Last Vital Signs Date Time Temp Pulse Resp B/P (MAP) Pulse Ox O2 Delivery O2 Flow Rate FiO2 06/23/20 15:29 45 26 100 06/23/20 15:00 132/90 (104) 97 06/23/20 12:00 98.4 06/23/20 12:00 Mechanical Ventilator Mechanical Ventilator Laboratory Tests Test 06/23/20 03:40 White Blood Count 16.3 K/UL (4.8-10.8) H Red Blood Count 2.54 M/UL (4.20-5.40) L Hemoglobin 8.4 G/DL (12.0-16.0) L Hematocrit 25.1 % (37.0-47.0) L Mean Corpuscular Volume 99 FL (80-99) Mean Corpuscular Hemoglobin 33.1 PG (27.0-31.0) H Mean Corpuscular Hemoglobin Concent 33.5 G/DL (32.0-36.0) Red Cell Distribution Width 15.2 % (11.6-14.8) H Platelet Count 150 K/UL (150-450) Mean Platelet Volume 9.2 FL (6.5-10.1) Neutrophils (%) (Auto) % (45.0-75.0) Lymphocytes (%) (Auto) % (20.0-45.0) Monocytes (%) (Auto) % (1.0-10.0) Eosinophils (%) (Auto) % (0.0-3.0) Basophils (%) (Auto) % (0.0-2.0) Differential Total Cells Counted 100 Neutrophils % (Manual) 89 % (45-75) H Lymphocytes % (Manual) 4 % (20-45) L Monocytes % (Manual) 7 % (1-10) Eosinophils % (Manual) 0 % (0-3) Basophils % (Manual) 0 % (0-2) Band Neutrophils 0 % (0-8) Platelet Estimate Adequate Platelet Morphology Normal Hypochromasia 1+ Anisocytosis 1+ Sodium Level 151 MMOL/L (136-145) H Potassium Level 3.4 MMOL/L (3.5-5.1) L Chloride Level 116 MMOL/L (98-107) H Carbon Dioxide Level 28 MMOL/L (21-32) Anion Gap 7 mmol/L (5-15) Blood Urea Nitrogen 31 mg/dL (7-18) H Creatinine 0.8 MG/DL (0.55-1.30) Estimat Glomerular Filtration Rate > 60 mL/min (>60) Glucose Level 197 MG/DL (74-106) H Calcium Level 7.6 MG/DL (8.5-10.1) L Phosphorus Level 6.3 MG/DL (2.5-4.9) H Magnesium Level 1.8 MG/DL (1.8-2.4) Total Bilirubin 0.6 MG/DL (0.2-1.0) Aspartate Amino Transf (AST/SGOT) 27 U/L (15-37) Alanine Aminotransferase (ALT/SGPT) 86 U/L (12-78) H Alkaline Phosphatase 54 U/L (46-116) Total Protein 4.8 G/DL (6.4-8.2) L Albumin 1.3 G/DL (3.4-5.0) L Globulin 3.5 g/dL Albumin/Globulin Ratio 0.4 (1.0-2.7) L Microbiology Date/Time Source Procedure Growth Status 06/22/20 18:05 Stool Clostridium difficile Toxin Assay - Final Complete Intake and Output 06/22/20 06/23/20 19:00 07:00 Intake Total 720 ml 1120 ml Output Total 550 ml 690 ml Balance 170 ml 430 ml IV Total 200 ml Tube Feeding 720 ml 720 ml Other 200 ml Output Urine Total 550 ml 590 ml Stool Total 100 ml # Bowel Movements 1 Objective General Appearance: WD/WN, no apparent distress, alert EENT: PERRL/EOMI, normal ENT inspection Neck: non-tender, normal alignment, supple, normal inspection Cardiovascular: normal peripheral pulses, normal rate, regular rhythm, no gallop/murmur, no JVD Respiratory/Chest: Mech vent; decreased breath sounds, crackles/rales, rhonchi - bilaterally, expiratory wheezing Abdomen: normal bowel sounds, non tender, soft, no organomegaly, no mass Extremities: normal range of motion Neurologic: envelope adjuster II-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 Continue amikacin per ID=Dr Camejo. Pulmonary/Critical care=DR Allred. COVID NEG (2) Sepsis Assessment & Plan: Staph haemolyticus. Continue amikacin per ID=Dr Camejo (3) Down's syndrome (4) Dysphagia Assessment & Plan: S/P PEG (5) Seizure disorder Assessment & Plan: Continue keppra and depakote (6) Hypothyroidism Assessment & Plan: Continue synthroid (7) Acute respiratory failure Assessment & Plan: Pulmonary = Dr Allred; [facility] vent Joni Copeland MD Jun 23, 2020 16:37
--- NOTE | 2020-06-23 17:17 | Cardiology Progress Note ---
Assessment/Plan Assessment/Plan sepsis respiratory failure ards renal insuf bacteremia abn cardiac enzyme due to demand sinus rafael stable thrombocytopenia resolved hypernatremia vent support abx wbc higher na increased still 3rd spacing alot cxr from 06/22 appears improved to my reading and with radiologsit reading as well tsh seems fine sig edema with hypernatremia need nauteresis eventually remains off pressor still at this time hr inthe 40's-60's no sig pauses on tele slower heart rate occure during sleep per rn teacher personally reviewed hopefully will be able to wean soon Subjective ROS Limited/Unobtainable: Yes Subjective on a vent not communicative but look awake Objective Last 24 Hour Vital Signs Date Time Temp Pulse Resp B/P (MAP) Pulse Ox O2 Delivery O2 Flow Rate FiO2 06/23/20 15:29 45 26 100 06/23/20 15:00 54 26 132/90 (104) 97 06/23/20 14:00 47 26 107/57 (74) 96 06/23/20 13:00 62 22 111/59 (76) 95 06/23/20 12:31 70 26 60 06/23/20 12:00 98.4 62 18 115/65 (82) 96 06/23/20 12:00 60 06/23/20 12:00 Mechanical Ventilator Mechanical Ventilator 06/23/20 12:00 62 18 115/65 (82) 96 06/23/20 12:00 63 06/23/20 11:00 61 23 137/62 (87) 90 06/23/20 10:50 160/99 06/23/20 10:00 52 26 160/99 (119) 93 06/23/20 09:00 57 23 138/118 (125) 96 06/23/20 08:00 98.8 55 24 141/75 (97) 98 06/23/20 08:00 60 06/23/20 08:00 Mechanical Ventilator Mechanical Ventilator 06/23/20 07:47 57 06/23/20 07:45 140/66 06/23/20 07:08 59 26 60 06/23/20 07:00 48 26 140/66 (90) 98 06/23/20 06:00 62 24 128/66 (86) 99 06/23/20 05:00 75 24 110/72 (85) 99 06/23/20 04:00 Mechanical Ventilator Mechanical Ventilator 06/23/20 04:00 60 06/23/20 04:00 98.5 106 32 119/101 (107) 100 06/23/20 04:00 106 06/23/20 03:40 68 26 60 06/23/20 03:00 60 23 125/74 (91) 99 06/23/20 02:00 59 24 114/56 (75) 98 06/23/20 01:00 60 26 124/54 (77) 99 06/23/20 00:00 60 06/23/20 00:00 Mechanical Ventilator Mechanical Ventilator 06/23/20 00:00 98.6 59 21 124/82 (96) 99 06/23/20 00:00 59 06/22/20 23:40 57 26 60 06/22/20 23:40 60 06/22/20 23:00 57 22 116/60 (78) 100 06/22/20 22:00 58 20 124/77 (93) 99 06/22/20 21:00 70 06/22/20 21:00 55 26 122/69 (86) 100 06/22/20 20:00 98.5 61 26 109/50 (69) 100 06/22/20 20:00 Mechanical Ventilator Mechanical Ventilator 06/22/20 20:00 90 06/22/20 19:45 62 06/22/20 19:30 64 26 70 06/22/20 19:00 58 22 108/73 (85) 100 06/22/20 18:00 53 26 131/66 (87) 100 General Appearance: no apparent distress, alert, on vent, patient on isolation , isolation precautions Cardiovascular: normal rate Respiratory/Chest: lungs clear Abdomen: normal bowel sounds, non tender, soft Extremities: moderate edema Intake and Output 06/22/20 06/23/20 19:00 07:00 Intake Total 720 ml 1120 ml Output Total 550 ml 690 ml Balance 170 ml 430 ml IV Total 200 ml Tube Feeding 720 ml 720 ml Other 200 ml Output Urine Total 550 ml 590 ml Stool Total 100 ml # Bowel Movements 1 Laboratory Tests Test 06/23/20 03:40 White Blood Count 16.3 K/UL (4.8-10.8) H Red Blood Count 2.54 M/UL (4.20-5.40) L Hemoglobin 8.4 G/DL (12.0-16.0) L Hematocrit 25.1 % (37.0-47.0) L Mean Corpuscular Volume 99 FL (80-99) Mean Corpuscular Hemoglobin 33.1 PG (27.0-31.0) H Mean Corpuscular Hemoglobin Concent 33.5 G/DL (32.0-36.0) Red Cell Distribution Width 15.2 % (11.6-14.8) H Platelet Count 150 K/UL (150-450) Mean Platelet Volume 9.2 FL (6.5-10.1) Neutrophils (%) (Auto) % (45.0-75.0) Lymphocytes (%) (Auto) % (20.0-45.0) Monocytes (%) (Auto) % (1.0-10.0) Eosinophils (%) (Auto) % (0.0-3.0) Basophils (%) (Auto) % (0.0-2.0) Differential Total Cells Counted 100 Neutrophils % (Manual) 89 % (45-75) H Lymphocytes % (Manual) 4 % (20-45) L Monocytes % (Manual) 7 % (1-10) Eosinophils % (Manual) 0 % (0-3) Basophils % (Manual) 0 % (0-2) Band Neutrophils 0 % (0-8) Platelet Estimate Adequate Platelet Morphology Normal Hypochromasia 1+ Anisocytosis 1+ Sodium Level 151 MMOL/L (136-145) H Potassium Level 3.4 MMOL/L (3.5-5.1) L Chloride Level 116 MMOL/L (98-107) H Carbon Dioxide Level 28 MMOL/L (21-32) Anion Gap 7 mmol/L (5-15) Blood Urea Nitrogen 31 mg/dL (7-18) H Creatinine 0.8 MG/DL (0.55-1.30) Estimat Glomerular Filtration Rate > 60 mL/min (>60) Glucose Level 197 MG/DL (74-106) H Calcium Level 7.6 MG/DL (8.5-10.1) L Phosphorus Level 6.3 MG/DL (2.5-4.9) H Magnesium Level 1.8 MG/DL (1.8-2.4) Total Bilirubin 0.6 MG/DL (0.2-1.0) Aspartate Amino Transf (AST/SGOT) 27 U/L (15-37) Alanine Aminotransferase (ALT/SGPT) 86 U/L (12-78) H Alkaline Phosphatase 54 U/L (46-116) Total Protein 4.8 G/DL (6.4-8.2) L Albumin 1.3 G/DL (3.4-5.0) L Globulin 3.5 g/dL Albumin/Globulin Ratio 0.4 (1.0-2.7) L Microbiology Date/Time Source Procedure Growth Status 06/22/20 18:05 Stool Clostridium difficile Toxin Assay - Final Complete Josue Pantoja MD Jun 23, 2020 17:17
--- NOTE | 2020-06-23 18:32 | NUR ---
NURSE NOTES: Patient is resting comfortably in bed, afebrile, FLACC score 0.
--- NOTE | 2020-06-23 19:13 | NUR ---
NURSE HAND-OFF REPORT: Latest Vital Signs: Temperature 98.4 , Pulse 60 , B/P 120 /72 , Respiratory Rate 20 , O2 SAT 100 , Mechanical Ventilator, O2 Flow Rate 15.0 . Vital Sign Comment: EKG Rhythm: Sinus Rhythm Rhythm change?: N MD Notified?: - MD Response: Latest Osorio Fall Score: 70 Fall Risk: High Risk Safety Measures: Call light Within Reach, Bed Alarm Zone 1, Side Rails Side Rails x3, Bed position Low and Locked. Fall Precautions: Yellow Socks Door Sign Patient Fall Education Report given to Cole RN.
[2020-06-23] MEDS: Dyna-Hex 2% Top Sol 2oz TOPIC SCH (19:38)
--- NOTE | 2020-06-23 19:40 | NUR ---
NURSE NOTES: PATIENT AWOKE, OPEN EYES, ABLE TO EYE CONTACT BUT DID NOT FOLLOW COMMAND, ON ETT TO VENT, AC 26/TV 500/FIO2 100%/PEEP 10, O2 SATURATION OVER 99% NOTED, HR 60'S/MIN, SR NOTED, G TUBE INTACT AND PATENT, ONGOING VITAL AF 1.2 AT 60ML/HR, RESIDUE 20ML NOTED, KEPT HOB OVER 30 DEGREES, ASPIRATION AND SZ PRECAUTION, ABDOMEN SOFT, NON TENDER, RECTAL TUBE INTACT AND PATENT, BROWN COLOR STOOL OUTED, F/C INTACT AND PATENT, HARISH COLOR URINE OUTED, PICC LINE TO LEFT UPPER ARM, INTACT AND PATENT, TKO STATUS, ON P200 BED, MADE LOWER BED POSITION, ON BED ALARM AND LOCKED, PLACE CALL LIGHT WITHIN REACH, WILL CONTINUE TO MONITOR.
--- NOTE | 2020-06-23 22:10 | NUR ---
NURSE NOTES: PATIENT CALM, REPOSITIONED, ORAL CARE WAS DONE, NO DISTRESS NOTED AT THIS TIME.
[2020-06-24] VITALS (26 sets, daily range): BP systolic 97–147; BP diastolic 49–135
--- NOTE | 2020-06-24 00:05 | NUR ---
NURSE NOTES: PATIENT ASLEEP STATUS, VSS, HR 50'S/MIN SB NOTED AT THIS TIME, WILL CONTINUE TO MONITOR.
--- NOTE | 2020-06-24 02:51 | NUR ---
NURSE NOTES: PATIENT AWOKE, TOLERATED G TUBE FEEDING, NO N/V NOTED, WILL CONTINUE TO MONITOR.
--- NOTE | 2020-06-24 05:00 | NUR ---
NURSE NOTES: MORNING CARE AND ORAL CARE WAS DONE, RECTAL TUBE INTACT AND PATENT, BROWN COLOR SOLID STOOL OUTED.
[2020-06-24] MEDS: Hydrocortisone 100mg Inj IV SCH ×3 (05:31→21:48)
[2020-06-24] MEDS: Valproic Acid 250mg/5ml Liquid GT SCH ×3 (05:32→21:49)
[2020-06-24] MEDS: Midodrine 10mg tab GT SCH ×3 (05:32→21:49)
[2020-06-24 05:44] LABS: HEMATOCRIT 24.3 % (37.0-47.0); HEMOGLOBIN 7.9 G/DL (12.0-16.0); MEAN CORPUSCULAR VOLUME 99 FL (80-99); PLATELET COUNT 140 K/UL (150-450); RED BLOOD COUNT 2.45 M/UL (4.20-5.40); RED CELL DISTRIBUTION WIDTH 14.8 % (11.6-14.8); WHITE BLOOD COUNT 15.3 K/UL (4.8-10.8)
--- NOTE | 2020-06-24 06:11 | NUR ---
NURSE NOTES: NO ACUTE DISTRESS NOTED AT THIS SHIFT.
[2020-06-24 06:14] LABS: ALANINE AMINOTRANSFERASE 69 U/L (12-78); ALBUMIN 1.3 G/DL (3.4-5.0); ALBUMIN/GLOBULIN RATIO 0.4 (1.0-2.7); ALKALINE PHOSPHATASE 55 U/L (46-116); ANION GAP 9 mmol/L (5-15); ASPARTATE AMINO TRANSFERASE 29 U/L (15-37); BILIRUBIN,TOTAL 0.5 MG/DL (0.2-1.0); BLOOD UREA NITROGEN 30 mg/dL (7-18); CALCIUM 7.4 MG/DL (8.5-10.1); CARBON DIOXIDE 28 MMOL/L (21-32); CHLORIDE 116 MMOL/L (98-107); CREATININE 0.7 MG/DL (0.55-1.30); PHOSPHORUS 1.8 MG/DL (2.5-4.9); POTASSIUM 3.1 MMOL/L (3.5-5.1); SODIUM 153 MMOL/L (136-145)
--- NOTE | 2020-06-24 07:31 | NUR ---
NURSE HAND-OFF REPORT: Latest Vital Signs: Temperature 98.7 , Pulse 46 , B/P 128 /55 , Respiratory Rate 25 , O2 SAT 100 , Mechanical Ventilator, O2 Flow Rate 15.0 . Vital Sign Comment: EKG Rhythm: Sinus Bradycardia Rhythm change?: N MD Notified?: - MD Response: Latest Osorio Fall Score: 70 Fall Risk: High Risk Safety Measures: Call light Within Reach, Bed Alarm Zone 1, Side Rails Side Rails x3, Bed position Low and Locked. Fall Precautions: Yellow Socks Door Sign Patient Fall Education Report given to TAI JIMENEZ.
--- NOTE | 2020-06-24 07:32 | NUR ---
NURSE NOTES: Report received from Cole Benitez RN. Patient is awake and resting in bed. Able to make eye contacts. Oriented to name. Non-verbal. Unable to follow commands. Afebrile. SB on monitor and storage bin tender with HR 57-58. ETT 7.5/22 cm at lip line. AC 26, TV 500, FiO2 100%, P 10. O2 sat 93-96%. White and clear thin secretion from mouth noted and suctioned. GT in place, receiving Vital AF 1.2 at 60cc/hr. 20cc residual noted. Pitting +2 edema on bilateral upper extremitas and feet noted. Non-pitting edema on bilateral legs. Gregorio in place draining to gravity. JODY PICC line patent and asymptomatic, open for TKO. Bed in lowest position. Side rails up x3. Will resume plan of care.
[2020-06-24] MEDS: Norepinephrine Bitartrate 16 MG in D5W 500ml 484 ML IV SCH (07:40)
[2020-06-24] MEDS ORDERED: Potassium Phosphate 20 MM in NS 275 ML IV SCH (08:30)
--- NOTE | 2020-06-24 08:50 | Pulmonolgy Critical Care Note ---
Critical Care - Asmt/Plan Problems: (1) Acute respiratory failure (2) Bacteremia (3) Pneumonia (4) Sepsis (5) HCAP (healthcare-associated pneumonia) (6) Seizure disorder (7) Down's syndrome Respiratory: monitor respiratory rate, adjust FIO2, CXR Cardiac: continue to monitor HR/BP Renal: F/U I&O, keep IV fluid, check electrolytes Infectious Disease: check cultures, continue antibiotics Gastrointestinal: continue feedings/current rate, hold feedings Endocrine: monitor blood sugar Hematologic: transfuse if hgb<8.5 Neurologic: PRN Ativan, PRN Morphine, keep patient comfortable Affect: PRN ativan Prophylaxis: Protonix Time Spent (Minutes): 40 Notes Reviewed: user experience researcher, cardio Discussed with: nurses, consultants, test case developershared services manager - Objective Last 24 Hour Vital Signs Date Time Temp Pulse Resp B/P (MAP) Pulse Ox O2 Delivery O2 Flow Rate FiO2 06/24/20 07:00 46 25 128/55 (79) 100 06/24/20 06:00 55 21 129/60 (83) 100 06/24/20 05:00 63 24 100/61 (74) 100 06/24/20 04:00 98.7 57 26 102/49 (66) 98 06/24/20 04:00 Mechanical Ventilator Mechanical Ventilator 06/24/20 04:00 100 06/24/20 04:00 57 06/24/20 03:00 59 17 123/56 (78) 93 06/24/20 02:43 60 26 100 06/24/20 02:30 63 22 117/61 (79) 99 06/24/20 02:18 65 25 147/120 (129) 98 06/24/20 02:00 56 23 147/135 (139) 99 06/24/20 01:00 53 21 146/90 (108) 100 06/24/20 00:00 Mechanical Ventilator Mechanical Ventilator 06/24/20 00:00 98.4 55 26 129/62 (84) 99 06/24/20 00:00 100 06/24/20 00:00 55 06/23/20 23:30 54 26 100 06/23/20 23:00 57 21 126/88 (101) 99 06/23/20 22:00 48 26 123/67 (85) 100 06/23/20 21:00 50 26 135/79 (97) 97 06/23/20 20:00 100 06/23/20 20:00 98.6 61 21 115/97 (103) 99 06/23/20 20:00 Mechanical Ventilator Mechanical Ventilator 06/23/20 19:30 58 26 100 06/23/20 19:30 60 06/23/20 19:00 60 20 120/72 (88) 100 06/23/20 18:00 58 26 118/168 (152) 100 06/23/20 17:00 58 26 116/84 (95) 100 06/23/20 16:00 62 06/23/20 16:00 62 23 126/95 (105) 100 06/23/20 16:00 60 06/23/20 16:00 Mechanical Ventilator Mechanical Ventilator 06/23/20 15:29 45 26 100 06/23/20 15:00 54 26 132/90 (104) 97 06/23/20 14:00 47 26 107/57 (74) 96 06/23/20 13:00 62 22 111/59 (76) 95 06/23/20 12:31 70 26 60 06/23/20 12:00 98.4 62 18 115/65 (82) 96 06/23/20 12:00 60 06/23/20 12:00 Mechanical Ventilator Mechanical Ventilator 06/23/20 12:00 62 18 115/65 (82) 96 06/23/20 12:00 63 06/23/20 11:00 61 23 137/62 (87) 90 06/23/20 10:50 160/99 06/23/20 10:00 52 26 160/99 (119) 93 06/23/20 09:00 57 23 138/118 (125) 96 Status: awake, sedated Condition: critical HEENT: atraumatic Neck: full ROM Lungs: clear Heart: HR/BP stable Abdomen: soft, active bowel sounds Extremities: no C/C/E Decubiti: location Micro: Microbiology Date/Time Source Procedure Growth Status 06/22/20 18:05 Stool Clostridium difficile Toxin Assay - Final Complete Accucheck: 131 Critical Care - Subjective ROS Limited/Unobtainable: Yes Condition: critical EKG Rhythm: Sinus Rhythm FI02: 100 Vent Support Breath Rate: 26 Vent Support Mode: AC Vent Tidal Volume: 500 Sputum Amount: Small PEEP: 10.0 PIP: 51 Tube Feeding Amount: 60 I&O: Intake and Output 06/23/20 06/24/20 19:00 07:00 Intake Total 946.66 ml 880 ml Output Total 1120 ml 800 ml Balance -173.34 ml 80 ml Free Water 100 ml IV Total 126.66 ml Tube Feeding 720 ml 720 ml Other 160 ml Output Urine Total 1020 ml 700 ml Stool Total 100 ml 100 ml ET-Tube: 7.5 ET Position: 22 Labs: Laboratory Tests Test 06/24/20 03:10 White Blood Count 15.3 K/UL (4.8-10.8) H Red Blood Count 2.45 M/UL (4.20-5.40) L Hemoglobin 7.9 G/DL (12.0-16.0) L Hematocrit 24.3 % (37.0-47.0) L Mean Corpuscular Volume 99 FL (80-99) Mean Corpuscular Hemoglobin 32.4 PG (27.0-31.0) H Mean Corpuscular Hemoglobin Concent 32.7 G/DL (32.0-36.0) Red Cell Distribution Width 14.8 % (11.6-14.8) Platelet Count 140 K/UL (150-450) L Mean Platelet Volume 9.4 FL (6.5-10.1) Neutrophils (%) (Auto) % (45.0-75.0) Lymphocytes (%) (Auto) % (20.0-45.0) Monocytes (%) (Auto) % (1.0-10.0) Eosinophils (%) (Auto) % (0.0-3.0) Basophils (%) (Auto) % (0.0-2.0) Neutrophils % (Manual) Pending Lymphocytes % (Manual) Pending Platelet Estimate Pending Platelet Morphology Pending Sodium Level 153 MMOL/L (136-145) H Potassium Level 3.1 MMOL/L (3.5-5.1) L Chloride Level 116 MMOL/L (98-107) H Carbon Dioxide Level 28 MMOL/L (21-32) Anion Gap 9 mmol/L (5-15) Blood Urea Nitrogen 30 mg/dL (7-18) H Creatinine 0.7 MG/DL (0.55-1.30) Estimat Glomerular Filtration Rate > 60 mL/min (>60) Glucose Level 246 MG/DL (74-106) H Calcium Level 7.4 MG/DL (8.5-10.1) L Phosphorus Level 1.8 MG/DL (2.5-4.9) L Magnesium Level 1.6 MG/DL (1.8-2.4) L Total Bilirubin 0.5 MG/DL (0.2-1.0) Aspartate Amino Transf (AST/SGOT) 29 U/L (15-37) Alanine Aminotransferase (ALT/SGPT) 69 U/L (12-78) Alkaline Phosphatase 55 U/L (46-116) Total Protein 4.7 G/DL (6.4-8.2) L Albumin 1.3 G/DL (3.4-5.0) L Globulin 3.4 g/dL Albumin/Globulin Ratio 0.4 (1.0-2.7) L Valproic Acid (Depakene) Level Pending Elayne Allred MD Jun 24, 2020 08:50
--- NOTE | 2020-06-24 08:58 | General Progress Note ---
Assessment/Plan Assessment/Plan: 1. History of Down syndrome. 2. Dysphagia with G-tube. 3. Seizure disorder. 4. Hypothyroidism. 5. LEANN. 6. Pneumonia. 7. Sepsis. fu H&H ppi GTF hold GI procedures for now check C.diff stool ob + / Subjective ROS Limited/Unobtainable: No Allergies: Coded Allergies: No Known Allergies (Unverified , 10/16/18) Objective Last 24 Hour Vital Signs Date Time Temp Pulse Resp B/P (MAP) Pulse Ox O2 Delivery O2 Flow Rate FiO2 06/24/20 08:00 98.8 55 23 122/107 (112) 99 06/24/20 07:00 46 25 128/55 (79) 100 06/24/20 06:00 55 21 129/60 (83) 100 06/24/20 05:00 63 24 100/61 (74) 100 06/24/20 04:00 98.7 57 26 102/49 (66) 98 06/24/20 04:00 Mechanical Ventilator Mechanical Ventilator 06/24/20 04:00 100 06/24/20 04:00 57 06/24/20 03:00 59 17 123/56 (78) 93 06/24/20 02:43 60 26 100 06/24/20 02:30 63 22 117/61 (79) 99 06/24/20 02:18 65 25 147/120 (129) 98 06/24/20 02:00 56 23 147/135 (139) 99 06/24/20 01:00 53 21 146/90 (108) 100 06/24/20 00:00 Mechanical Ventilator Mechanical Ventilator 06/24/20 00:00 98.4 55 26 129/62 (84) 99 06/24/20 00:00 100 06/24/20 00:00 55 06/23/20 23:30 54 26 100 06/23/20 23:00 57 21 126/88 (101) 99 06/23/20 22:00 48 26 123/67 (85) 100 06/23/20 21:00 50 26 135/79 (97) 97 06/23/20 20:00 100 06/23/20 20:00 98.6 61 21 115/97 (103) 99 06/23/20 20:00 Mechanical Ventilator Mechanical Ventilator 06/23/20 19:30 58 26 100 06/23/20 19:30 60 06/23/20 19:00 60 20 120/72 (88) 100 06/23/20 18:00 58 26 118/168 (152) 100 06/23/20 17:00 58 26 116/84 (95) 100 06/23/20 16:00 62 06/23/20 16:00 62 23 126/95 (105) 100 06/23/20 16:00 60 06/23/20 16:00 Mechanical Ventilator Mechanical Ventilator 06/23/20 15:29 45 26 100 06/23/20 15:00 54 26 132/90 (104) 97 06/23/20 14:00 47 26 107/57 (74) 96 06/23/20 13:00 62 22 111/59 (76) 95 06/23/20 12:31 70 26 60 06/23/20 12:00 98.4 62 18 115/65 (82) 96 06/23/20 12:00 60 06/23/20 12:00 Mechanical Ventilator Mechanical Ventilator 06/23/20 12:00 62 18 115/65 (82) 96 06/23/20 12:00 63 06/23/20 11:00 61 23 137/62 (87) 90 06/23/20 10:50 160/99 06/23/20 10:00 52 26 160/99 (119) 93 06/23/20 09:00 57 23 138/118 (125) 96 Intake and Output 06/23/20 06/24/20 19:00 07:00 Intake Total 946.66 ml 880 ml Output Total 1120 ml 800 ml Balance -173.34 ml 80 ml Free Water 100 ml IV Total 126.66 ml Tube Feeding 720 ml 720 ml Other 160 ml Output Urine Total 1020 ml 700 ml Stool Total 100 ml 100 ml Laboratory Tests 06/24/20 03:10: White Blood Count 15.3H, Red Blood Count 2.45L, Hemoglobin 7.9L, Hematocrit 24.3L, Mean Corpuscular Volume 99, Mean Corpuscular Hemoglobin 32.4H, Mean Corpuscular Hemoglobin Concent 32.7, Red Cell Distribution Width 14.8, Platelet Count 140L, Mean Platelet Volume 9.4, Neutrophils (%) (Auto) , Lymphocytes (%) (Auto) , Monocytes (%) (Auto) , Eosinophils (%) (Auto) , Basophils (%) (Auto) , Neutrophils % (Manual) [Pending], Lymphocytes % (Manual) [Pending], Platelet Estimate [Pending], Platelet Morphology [Pending], Sodium Level 153H, Potassium Level 3.1L, Chloride Level 116H, Carbon Dioxide Level 28, Anion Gap 9, Blood Urea Nitrogen 30H, Creatinine 0.7, Estimat Glomerular Filtration Rate > 60, Glucose Level 246H, Calcium Level 7.4L, Phosphorus Level 1.8L, Magnesium Level 1.6L, Total Bilirubin 0.5, Aspartate Amino Transf (AST/SGOT) 29, Alanine Ami notransferase (ALT/SGPT) 69, Alkaline Phosphatase 55, Total Protein 4.7L, Albumin 1.3L, Globulin 3.4, Albumin/Globulin Ratio 0.4L, Valproic Acid (Depakene) Level [Pending] Height (Feet): 5 Height (Inches): 3.00 Weight (Pounds): 172 General Appearance: no apparent distress EENT: normal ENT inspection Neck: supple Cardiovascular: normal rate Respiratory/Chest: decreased breath sounds Abdomen: hypoactive bowel sounds Extremities: non-tender Nehemiah Perez MD Jun 24, 2020 08:58
--- NOTE | 2020-06-24 09:20 | NUR ---
NURSE HAND-OFF REPORT: Latest Vital Signs: Temperature 98.8 , Pulse 55 , B/P 118 /59 , Respiratory Rate 24 , O2 SAT 99 , Mechanical Ventilator, O2 Flow Rate 15.0 . Vital Sign Comment: EKG Rhythm: Sinus Bradycardia Rhythm change?: N MD Notified?: - MD Response: Latest Osorio Fall Score: 70 Fall Risk: High Risk Safety Measures: Call light Within Reach, Bed Alarm Zone 1, Side Rails Side Rails x3, Bed position Low and Locked. Fall Precautions: Yellow Socks Door Sign Patient Fall Education Report given to TAI Oh.
--- NOTE | 2020-06-24 09:22 | NUR ---
NURSE NOTES: Patient received lying in bed, awake, makes eye contact. Orally intubated, on vent settings: AC-24, TV-500, FiO2-100%, PEEP - 10, oxygen saturation 100%, respiration even and unlabored. No respiratory distress. On g-tube feeding, Vital 1.2 at 60 ml/hr, restarted. Placed on semi-cabrera's position, on aspiration precaution. On rectal tube, draining brown output. Gregorio catheter patent and draining, yellow urine noted. Left upper arm PICC dressing intact, running TKO. Upper and lower extremities elevated, edema noted to both. Sinus bradycardia, rate of 50s. Safety measures implemented, bed kept at lowest position. Will continue to monitor.
[2020-06-24] MEDS: Pantoprazole Inj IV SCH (09:58)
--- NOTE | 2020-06-24 10:17 | Nephrology Progress Note ---
Assessment/Plan Problem List: (1) LEANN (acute kidney injury) (2) Respiratory failure requiring intubation (3) Down's syndrome (4) Seizure disorder (5) Hypothyroidism Assessment Acute renal failure, likely due to hypotension Acute respiratory distress, hypoxia Seizure disorder Hypothyroidism Down syndrome Full code Fluid challenge with IV fluids and albumin Midodrine for BP above 100 systolic Check TSH level Check Correct level Monitor renal parameters Urine studies Per orders Plan June 24: Lab reviewed. Low phosphorus low magnesium and low potassium was addressed. Hemoglobin drifting lower. Continue per consultants. Patient remains full code. June 23: Labs reviewed. Patient continues to be on ventilator. D5W for high sodium and also potassium chloride intravenously as supplement given. H emoglobin 8.4. Continue to monitor electrolytes and renal parameters. June 22: Labs reviewed. Low potassium and high sodium noted. Hemoglobin 8.1 stable. Aim to correct abnormal electrolyte. Continue rest. Will give 2 boluses of D5W 500 cc. June 21: Lab reviewed. Abnormal electrolytes noted and addressed. June 20: Labs reviewed. Potassium supplement given. Patient remains full code. Continue per consultants. June 19: Lab reviewed. Electrolyte abnormalities addressed. Continue per pulmonary and ID. June 18: Lab reviewed. Status unchanged. Serum sodium 151 unchanged. Stable from renal standpoint of view. June 17: Labs reviewed. Status quo. D5W 500 cc IV ordered. Continue to monitor renal parameters. June 16: Status quo. Labs reviewed. Overall condition unchanged. Patient was transfused and hemoglobin higher. Continue current management. Patient remains full code. June 15: Status quo. Overall condition poor. Very low albumin. Edematous. Hypotensive. Hemoglobin lower. Anemia work-up ordered. I favor transfusion 2 units of packed RBCs. Patient remains full code. I favor supportive care only. Will discuss. June 14: Electrolyte abnormalities addressed. Serum creatinine lower. Continue per current management. June 13: Status unchanged. Lab reviewed. Serum potassium 2.7. IV potassium chloride ordered. Serum creatinine low at 1.6 stable. Blood pressure 90s systolic June 12: Status quo. Labs reviewed. Renal parameters stable. Serum creatinine down to 1.6. Medication list reviewed. Continues to be on midodrine. Continue per consultants. June 11: Status quo. Labs reviewed. Electrolytes adjusted. Serum creatinine down to 1.8. Continue per consultants. June 10: Status quo. Labs reviewed. Phosphorus supplement IV given. Serum creatinine 2. Continue per consultants. June 09: Requires less pressors. Albumin bolus given. 1 dose of Lasix IV ordered as the patient severely edematous. Patient serum albumin is very low. Continue per consultants. June 08: Continues to be intubated. Labs reviewed. Serum creatinine 1.9 unchanged. Blood pressure more stable. Off 1 of the pressors. Continue to monitor renal parameters. Continue per consultants. Patient now on hydroc ortisone 100 mg every 8 hours. Will decrease IV fluid. Normal saline down to 50 cc an hour. June 07: Intubated. Labs reviewed. Creatinine 1.9 unchanged. Continue same treatment plan. Per consultants. Overall poor prognosis since the patient remains on pressors and her pulmonary status is worsening. June 06: Remains intubated. Labs reviewed. Creatinine 1.9. Blood pressure systolic 90s. Continue per consultants. June 05: Remains intubated. Labs reviewed. Serum creatinine lower to 2. Vancomycin level lower. Remains hypotensive on pressors. Will increase midodrine to 10 mg every 8 hours. Continue per consultants. Continue to monitor renal parameters. June 04: Patient now in ICU. Intubated. On pressors. Labs reviewed. Will increase midodrine. Aim to keep blood pressure over 100 systolic. Will give albumin bolus. Will check vancomycin level which was elevated when checked previously on June 01. Will monitor renal parameters. Continue per consultants. Subjective ROS Limited/Unobtainable: Yes Objective Objective Last 24 Hour Vital Signs Date Time Temp Pulse Resp B/P (MAP) Pulse Ox O2 Delivery O2 Flow Rate FiO2 06/24/20 09:00 55 24 118/59 (78) 99 06/24/20 08:00 Mechanical Ventilator Mechanical Ventilator 06/24/20 08:00 100 06/24/20 08:00 98.8 55 23 122/107 (112) 99 06/24/20 07:41 49 06/24/20 07:05 46 27 100 06/24/20 07:00 46 25 128/55 (79) 100 06/24/20 06:00 55 21 129/60 (83) 100 06/24/20 05:00 63 24 100/61 (74) 100 06/24/20 04:00 98.7 57 26 102/49 (66) 98 06/24/20 04:00 Mechanical Ventilator Mechanical Ventilator 06/24/20 04:00 100 06/24/20 04:00 57 06/24/20 03:00 59 17 123/56 (78) 93 06/24/20 02:43 60 26 100 06/24/20 02:30 63 22 117/61 (79) 99 06/24/20 02:18 65 25 147/120 (129) 98 06/24/20 02:00 56 23 147/135 (139) 99 06/24/20 01:00 53 21 146/90 (108) 100 06/24/20 00:00 Mechanical Ventilator Mechanical Ventilator 06/24/20 00:00 98.4 55 26 129/62 (84) 99 06/24/20 00:00 100 06/24/20 00:00 55 06/23/20 23:30 54 26 100 06/23/20 23:00 57 21 126/88 (101) 99 06/23/20 22:00 48 26 123/67 (85) 100 06/23/20 21:00 50 26 135/79 (97) 97 06/23/20 20:00 100 06/23/20 20:00 98.6 61 21 115/97 (103) 99 06/23/20 20:00 Mechanical Ventilator Mechanical Ventilator 06/23/20 19:30 58 26 100 06/23/20 19:30 60 06/23/20 19:00 60 20 120/72 (88) 100 06/23/20 18:00 58 26 118/168 (152) 100 06/23/20 17:00 58 26 116/84 (95) 100 06/23/20 16:00 62 06/23/20 16:00 62 23 126/95 (105) 100 06/23/20 16:00 60 06/23/20 16:00 Mechanical Ventilator Mechanical Ventilator 06/23/20 15:29 45 26 100 06/23/20 15:00 54 26 132/90 (104) 97 06/23/20 14:00 47 26 107/57 (74) 96 06/23/20 13:00 62 22 111/59 (76) 95 06/23/20 12:31 70 26 60 06/23/20 12:00 98.4 62 18 115/65 (82) 96 06/23/20 12:00 60 06/23/20 12:00 Mechanical Ventilator Mechanical Ventilator 06/23/20 12:00 62 18 115/65 (82) 96 06/23/20 12:00 63 06/23/20 11:00 61 23 137/62 (87) 90 06/23/20 10:50 160/99 Intake and Output 06/23/20 06/24/20 19:00 07:00 Intake Total 946.66 ml 880 ml Output Total 1120 ml 800 ml Balance -173.34 ml 80 ml Free Water 100 ml IV Total 126.66 ml Tube Feeding 720 ml 720 ml Other 160 ml Output Urine Total 1020 ml 700 ml Stool Total 100 ml 100 ml Laboratory Tests 06/24/20 03:10: White Blood Count 15.3H, Red Blood Count 2.45L, Hemoglobin 7.9L, Hematocrit 24.3L, Mean Corpuscular Volume 99, Mean Corpuscular Hemoglobin 32.4H, Mean Corpuscular Hemoglobin Concent 32.7, Red Cell Distribution Width 14.8, Platelet Count 140L, Mean Platelet Volume 9.4, Neutrophils (%) (Auto) , Lymphocytes (%) (Auto) , Monocytes (%) (Auto) , Eosinophils (%) (Auto) , Basophils (%) (Auto) , Differential Total Cells Counted 100, Neutrophils % (Manual) 88H, Lymphocytes % (Manual) 5L, Monocytes % (Manual) 7, Eosinophils % (Manual) 0, Basophils % (Manual) 0, Band Neutrophils 0, Platelet Estimate DecreasedL, Platelet Morphology Normal, Hypochromasia 3+, Anisocytosis 1+, Sodium Level 153H, Potassium Level 3.1L, Chloride Level 116H, Carbon Dioxide Level 28, Anion Gap 9, Blood Urea Nitrogen 30H, Creatinine 0.7, Estimat Glomerular Filtration Rate > 60, Glucose Level 246H, Calcium Level 7.4L, Phosphorus Level 1.8L, Magnesium Level 1.6L, Total Bilirubin 0.5, Aspartate Amino Transf (AST/SGOT) 29, Alanine Aminotransferase (ALT/SGPT) 69, Alkaline Phosphatase 55, Total Protein 4.7L, Albumin 1.3L, Globulin 3.4, Albumin/Globulin Ratio 0.4L, Valproic Acid (Depakene) Level [Pending] Height (Feet): 5 Height (Inches): 3.00 Weight (Pounds): 172 General Appearance: no apparent distress EENT: other - On ventilator Cardiovascular: normal rate - Rate in 50s Respiratory/Chest: decreased breath sounds Abdomen: distended Extremities: moderate edema Keron Pitt MD Jun 24, 2020 10:17
[2020-06-24] MEDS: DOPamine 400mg/250ml 250 ML IV SCH (11:15)
--- NOTE | 2020-06-24 11:49 | Infectious Diseases Prog Note ---
Assessment/Plan ASSESSMENT: sp code blue 06/03 Septic Shock; SP Fever, recurrent- SP Leukocytosis; persistent/fluctuating -06/17 u/a no pyuria -06/16 Bcx NTD (Picc line) -06/14 Bcx NTD ucx Neg sp cx C. parapsilopsis -06/03 u/a no pyuria Pneumonia.- COVID 19 neg x3 Acute hypoxic resp failure on VM> NRB 15l 100%; hypoxic on ABG> now VDRF 06/03- Fio2 80% >100% 06/05> 60% 06/09 >80% 06/10 >95% 06/18 >90% 06/22 >60% 06/23 -06/22 CXR: Improved aeration of both lungs. -06/13 CXR:Small bilateral pleural effusions with minor edema. Stable edema with mild worsening in the degree of pleural effusion on the right. -06/09 sp cx Neg 06/08 CXR: Extensive bilateral interstitial and airspace disease appears similar to the prior exam. Moderate to large bilateral pleural effusions appear unchanged. 06/05 CXR: Increasing left upper lobe dense consolidation and likely increasing bilateral pleural fluid. Persistent diffuse dense consolidation elsewhere -06/03 sp cx normal resp marie -06/02 CXR: Increased atelectasis of the right lung, since prior exam of 3 days earlier. New or increased right pleural effusion. Increased left basilar consolidation and/or pleural fluid -COVID Rapid PCR neg 05/31, 05/31, 06/03 -05/30 spc x Group G strep -05/30 CXR: Reduced lung volumes. Patchy bilateral predominantly interstitial pulmonary opacities. Could be from edema and/or pneumonia. There is a broader differential. -legionella ag urine, blasto ab, Histo ab, HIV ab screen, FRANCIS, ANCA neg Persistent, high grade bacteremia- -05/30 Bcx 4/4 sets S. haemolyticus; 05/31 Bcx 3/4 S/ epi; 06/04 Bcx 1.4 S. warnerri; 06/06 Bcx Neg -2d echo: no vegetaions seen ua/ wbc 10-15, nit neg, leuk +1; ucx Neg LEANN; -supratherapeutic vanco levels -Seizure disorder. - Hypothyroidism. - Down syndrome. History of PEG tube placement. [place] resident PLAN: Continue to monitor off abx 06/22 SP Meropenem #18, IV AMikacin #7 06/12/20 SP Daptomycin #11 06/10 SP MIcafungin #7, Linezolid #5 06/05 SP Azithromycin #7/7 06/03 SP Ceftriaxone #2 06/02 SP IV Vancomycin #4, Zosyn #4 05/30 SP Cefepime x1, Flagyl x1 - Monitor CBC, BMP. .f/u Repeat cx - COVID neg x3 - Monitor chest x-ray. - Monitor the patient's clinical course and labs. Based on those, we will do further recommendation. -f/u Bcx from picc line, cdiff if diarrhea -f/u Fungitell, asp ag, flow cytometry -Once stable, CT chest/abd/pw/ given persistent leukocytosis -poor prognosis Thank you, Dr. Allred, for allowing me to participate in the care of this patient. I will follow the patient with you at this hospitalization. Discussed with RN Subjective Allergies: Coded Allergies: No Known Allergies (Unverified , 10/16/18) afebrile wbc improving remains on 100% FIo2 Objective Last 24 Hour Vital Signs Date Time Temp Pulse Resp B/P (MAP) Pulse Ox O2 Delivery O2 Flow Rate FiO2 06/24/20 11:00 46 26 127/54 (78) 99 06/24/20 11:00 45 26 100 06/24/20 10:00 47 26 125/84 (98) 100 06/24/20 09:00 55 24 118/59 (78) 99 06/24/20 08:00 Mechanical Ventilator Mechanical Ventilator 06/24/20 08:00 100 06/24/20 08:00 98.8 55 23 122/107 (112) 99 06/24/20 07:41 49 06/24/20 07:05 46 27 100 06/24/20 07:00 46 25 128/55 (79) 100 06/24/20 06:00 55 21 129/60 (83) 100 06/24/20 05:00 63 24 100/61 (74) 100 06/24/20 04:00 98.7 57 26 102/49 (66) 98 06/24/20 04:00 Mechanical Ventilator Mechanical Ventilator 06/24/20 04:00 100 06/24/20 04:00 57 06/24/20 03:00 59 17 123/56 (78) 93 06/24/20 02:43 60 26 100 06/24/20 02:30 63 22 117/61 (79) 99 06/24/20 02:18 65 25 147/120 (129) 98 06/24/20 02:00 56 23 147/135 (139) 99 06/24/20 01:00 53 21 146/90 (108) 100 06/24/20 00:00 Mechanical Ventilator Mechanical Ventilator 06/24/20 00:00 98.4 55 26 129/62 (84) 99 06/24/20 00:00 100 06/24/20 00:00 55 06/23/20 23:30 54 26 100 06/23/20 23:00 57 21 126/88 (101) 99 06/23/20 22:00 48 26 123/67 (85) 100 06/23/20 21:00 50 26 135/79 (97) 97 06/23/20 20:00 100 06/23/20 20:00 98.6 61 21 115/97 (103) 99 06/23/20 20:00 Mechanical Ventilator Mechanical Ventilator 06/23/20 19:30 58 26 100 06/23/20 19:30 60 06/23/20 19:00 60 20 120/72 (88) 100 06/23/20 18:00 58 26 118/168 (152) 100 06/23/20 17:00 58 26 116/84 (95) 100 06/23/20 16:00 62 06/23/20 16:00 62 23 126/95 (105) 100 06/23/20 16:00 60 06/23/20 16:00 Mechanical Ventilator Mechanical Ventilator 06/23/20 15:29 45 26 100 06/23/20 15:00 54 26 132/90 (104) 97 06/23/20 14:00 47 26 107/57 (74) 96 06/23/20 13:00 62 22 111/59 (76) 95 06/23/20 12:31 70 26 60 06/23/20 12:00 98.4 62 18 115/65 (82) 96 06/23/20 12:00 60 06/23/20 12:00 Mechanical Ventilator Mechanical Ventilator 06/23/20 12:00 62 18 115/65 (82) 96 06/23/20 12:00 63 Height (Feet): 5 Height (Inches): 3.00 Weight (Pounds): 172 HEENT: No pale conjunctivae. No icterus. ETT in place NECK: No lymphadenopathy. CHEST: Coarse breathing sounds. HEART: S1 and S2. ABDOMEN: Soft. PEG tube in place. EXTREMITIES: No cyanosis at this time . SKIN: no rash Microbiology Date/Time Source Procedure Growth Status 06/22/20 18:05 Stool Clostridium difficile Toxin Assay - Final Complete Laboratory Tests Test 06/24/20 03:10 White Blood Count 15.3 K/UL (4.8-10.8) H Red Blood Count 2.45 M/UL (4.20-5.40) L Hemoglobin 7.9 G/DL (12.0-16.0) L Hematocrit 24.3 % (37.0-47.0) L Mean Corpuscular Volume 99 FL (80-99) Mean Corpuscular Hemoglobin 32.4 PG (27.0-31.0) H Mean Corpuscular Hemoglobin Concent 32.7 G/DL (32.0-36.0) Red Cell Distribution Width 14.8 % (11.6-14.8) Platelet Count 140 K/UL (150-450) L Mean Platelet Volume 9.4 FL (6.5-10.1) Neutrophils (%) (Auto) % (45.0-75.0) Lymphocytes (%) (Auto) % (20.0-45.0) Monocytes (%) (Auto) % (1.0-10.0) Eosinophils (%) (Auto) % (0.0-3.0) Basophils (%) (Auto) % (0.0-2.0) Differential Total Cells Counted 100 Neutrophils % (Manual) 88 % (45-75) H Lymphocytes % (Manual) 5 % (20-45) L Monocytes % (Manual) 7 % (1-10) Eosinophils % (Manual) 0 % (0-3) Basophils % (Manual) 0 % (0-2) Band Neutrophils 0 % (0-8) Platelet Estimate Decreased L Platelet Morphology Normal Hypochromasia 3+ Anisocytosis 1+ Sodium Level 153 MMOL/L (136-145) H Potassium Level 3.1 MMOL/L (3.5-5.1) L Chloride Level 116 MMOL/L (98-107) H Carbon Dioxide Level 28 MMOL/L (21-32) Anion Gap 9 mmol/L (5-15) Blood Urea Nitrogen 30 mg/dL (7-18) H Creatinine 0.7 MG/DL (0.55-1.30) Estimat Glomerular Filtration Rate > 60 mL/min (>60) Glucose Level 246 MG/DL (74-106) H Calcium Level 7.4 MG/DL (8.5-10.1) L Phosphorus Level 1.8 MG/DL (2.5-4.9) L Magnesium Level 1.6 MG/DL (1.8-2.4) L Total Bilirubin 0.5 MG/DL (0.2-1.0) Aspartate Amino Transf (AST/SGOT) 29 U/L (15-37) Alanine Aminotransferase (ALT/SGPT) 69 U/L (12-78) Alkaline Phosphatase 55 U/L (46-116) Total Protein 4.7 G/DL (6.4-8.2) L Albumin 1.3 G/DL (3.4-5.0) L Globulin 3.4 g/dL Albumin/Globulin Ratio 0.4 (1.0-2.7) L Valproic Acid (Depakene) Level 21 MCG/ML (50-100) L Current Medications Medications (Trade) Dose Ordered Sig/Katy Route PRN Reason Start Time Stop Time Status Last Admin Dose Admin Acetaminophen (Tylenol) 650 mg Q4H PRN GT FEVER 06/03/20 11:45 07/03/20 11:44 06/15/20 03:17 Chlorhexidine Gluconate (Alla-Hex 2%) 1 applic DAILY@1999 TOPIC 06/08/20 20:00 09/06/20 19:59 06/23/20 19:38 Clotrimazole (Lotrimin) 1 applic Q12HR TOPIC 06/07/20 13:00 09/05/20 12:59 06/24/20 08:19 Dextrose (Dextrose 50%) 25 ml Q30M PRN IV Hypoglycemia 06/03/20 11:30 08/28/20 11:29 Dextrose (Dextrose 50%) 50 ml Q30M PRN IV Hypoglycemia 06/03/20 11:30 08/28/20 11:29 Dopamine HCl/ Dextrose 250 ml @ 0 mls/hr Q24H IV 06/12/20 11:15 09/10/20 11:14 06/14/20 19:47 Hydrocortisone (Solu-CORTEF) 100 mg EVERY 8 HOURS IV 06/07/20 14:00 09/05/20 13:59 06/24/20 05:31 Levothyroxine Sodium (Synthroid) 75 mcg DAILY GT 06/04/20 09:00 06/30/20 08:59 06/24/20 08:19 Loperamide HCl (Imodium) 2 mg Q6H PRN NG Diarrhea 06/24/20 10:30 07/24/20 10:29 Midodrine (Pro-Amatine) 10 mg Q8HR GT 06/05/20 14:00 09/03/20 13:59 06/24/20 05:32 Norepinephrine Bitartrate 16 mg/ Dextrose 500 ml @ 0 mls/hr Q24H IV 06/08/20 07:45 07/07/20 12:59 06/12/20 08:43 Ondansetron HCl (Zofran) 4 mg Q6H PRN IVP Nausea & Vomiting 06/03/20 12:00 06/29/20 11:59 Pantoprazole (Protonix) 40 mg DAILY IV 06/04/20 09:00 06/30/20 08:59 06/24/20 09:58 Phenylephrine HCl 50 mg/Dextrose 250 ml @ 0 mls/hr Q24H PRN IV For hypotension 06/06/20 17:45 07/06/20 17:44 06/08/20 01:49 Polyethylene Glycol (Miralax) 17 gm DAILYPRN PRN GT Constipation 06/03/20 12:00 06/29/20 11:59 Valproic Acid (Depakene) 500 mg EVERY 8 HOURS GT 06/03/20 14:00 06/29/20 21:59 06/24/20 05:32 Suki Camejo M.D. Jun 24, 2020 11:49
--- NOTE | 2020-06-24 12:00 | NUR ---
NURSE NOTES: Patient remains stable at this time. Respirations even and unlabored.
--- NOTE | 2020-06-24 13:01 | Internal Med Progress Note ---
Subjective Date of Service: Jun 24, 2020 Physician Name Joni Copeland Attending Physician Elayne Allred MD Current Medications Medications (Trade) Dose Ordered Sig/Katy Route PRN Reason Start Time Stop Time Status Last Admin Dose Admin Acetaminophen (Tylenol) 650 mg Q4H PRN GT FEVER 06/03/20 11:45 07/03/20 11:44 06/15/20 03:17 Chlorhexidine Gluconate (Alla-Hex 2%) 1 applic DAILY@1999 TOPIC 06/08/20 20:00 09/06/20 19:59 06/23/20 19:38 Clotrimazole (Lotrimin) 1 applic Q12HR TOPIC 06/07/20 13:00 09/05/20 12:59 06/24/20 08:19 Dextrose (Dextrose 50%) 25 ml Q30M PRN IV Hypoglycemia 06/03/20 11:30 08/28/20 11:29 Dextrose (Dextrose 50%) 50 ml Q30M PRN IV Hypoglycemia 06/03/20 11:30 08/28/20 11:29 Dopamine HCl/ Dextrose 250 ml @ 0 mls/hr Q24H IV 06/12/20 11:15 09/10/20 11:14 06/14/20 19:47 Hydrocortisone (Solu-CORTEF) 100 mg EVERY 8 HOURS IV 06/07/20 14:00 09/05/20 13:59 06/24/20 05:31 Levothyroxine Sodium (Synthroid) 75 mcg DAILY GT 06/04/20 09:00 06/30/20 08:59 06/24/20 08:19 Loperamide HCl (Imodium) 2 mg Q6H PRN NG Diarrhea 06/24/20 10:30 07/24/20 10:29 Midodrine (Pro-Amatine) 10 mg Q8HR GT 06/05/20 14:00 09/03/20 13:59 06/24/20 05:32 Norepinephrine Bitartrate 16 mg/ Dextrose 500 ml @ 0 mls/hr Q24H IV 06/08/20 07:45 07/07/20 12:59 06/12/20 08:43 Ondansetron HCl (Zofran) 4 mg Q6H PRN IVP Nausea & Vomiting 06/03/20 12:00 06/29/20 11:59 Pantoprazole (Protonix) 40 mg DAILY IV 06/04/20 09:00 06/30/20 08:59 06/24/20 09:58 Phenylephrine HCl 50 mg/Dextrose 250 ml @ 0 mls/hr Q24H PRN IV For hypotension 06/06/20 17:45 07/06/20 17:44 06/08/20 01:49 Polyethylene Glycol (Miralax) 17 gm DAILYPRN PRN GT Constipation 06/03/20 12:00 06/29/20 11:59 Valproic Acid (Depakene) 500 mg EVERY 8 HOURS GT 06/03/20 14:00 06/29/20 21:59 06/24/20 05:32 Allergies: Coded Allergies: No Known Allergies (Unverified , 10/16/18) ROS Limited/Unobtainable: Yes Subjective 59 YO F with Down's syndrome admitted with hypoxia. Now sepsis and pneumonia. Cover for Int Med-DR Hawk. ICU. Intubated and sedated Objective Last Vital Signs Date Time Temp Pulse Resp B/P (MAP) Pulse Ox O2 Delivery O2 Flow Rate FiO2 06/24/20 11:00 46 26 127/54 (78) 99 06/24/20 11:00 100 06/24/20 08:00 Mechanical Ventilator Mechanical Ventilator 06/24/20 08:00 98.8 Laboratory Tests Test 06/24/20 03:10 White Blood Count 15.3 K/UL (4.8-10.8) H Red Blood Count 2.45 M/UL (4.20-5.40) L Hemoglobin 7.9 G/DL (12.0-16.0) L Hematocrit 24.3 % (37.0-47.0) L Mean Corpuscular Volume 99 FL (80-99) Mean Corpuscular Hemoglobin 32.4 PG (27.0-31.0) H Mean Corpuscular Hemoglobin Concent 32.7 G/DL (32.0-36.0) Red Cell Distribution Width 14.8 % (11.6-14.8) Platelet Count 140 K/UL (150-450) L Mean Platelet Volume 9.4 FL (6.5-10.1) Neutrophils (%) (Auto) % (45.0-75.0) Lymphocytes (%) (Auto) % (20.0-45.0) Monocytes (%) (Auto) % (1.0-10.0) Eosinophils (%) (Auto) % (0.0-3.0) Basophils (%) (Auto) % (0.0-2.0) Differential Total Cells Counted 100 Neutrophils % (Manual) 88 % (45-75) H Lymphocytes % (Manual) 5 % (20-45) L Monocytes % (Manual) 7 % (1-10) Eosinophils % (Manual) 0 % (0-3) Basophils % (Manual) 0 % (0-2) Band Neutrophils 0 % (0-8) Platelet Estimate Decreased L Platelet Morphology Normal Hypochromasia 3+ Anisocytosis 1+ Sodium Level 153 MMOL/L (136-145) H Potassium Level 3.1 MMOL/L (3.5-5.1) L Chloride Level 116 MMOL/L (98-107) H Carbon Dioxide Level 28 MMOL/L (21-32) Anion Gap 9 mmol/L (5-15) Blood Urea Nitrogen 30 mg/dL (7-18) H Creatinine 0.7 MG/DL (0.55-1.30) Estimat Glomerular Filtration Rate > 60 mL/min (>60) Glucose Level 246 MG/DL (74-106) H Calcium Level 7.4 MG/DL (8.5-10.1) L Phosphorus Level 1.8 MG/DL (2.5-4.9) L Magnesium Level 1.6 MG/DL (1.8-2.4) L Total Bilirubin 0.5 MG/DL (0.2-1.0) Aspartate Amino Transf (AST/SGOT) 29 U/L (15-37) Alanine Aminotransferase (ALT/SGPT) 69 U/L (12-78) Alkaline Phosphatase 55 U/L (46-116) Total Protein 4.7 G/DL (6.4-8.2) L Albumin 1.3 G/DL (3.4-5.0) L Globulin 3.4 g/dL Albumin/Globulin Ratio 0.4 (1.0-2.7) L Valproic Acid (Depakene) Level 21 MCG/ML (50-100) L Microbiology Date/Time Source Procedure Growth Status 06/22/20 18:05 Stool Clostridium difficile Toxin Assay - Final Complete Intake and Output 06/23/20 06/24/20 19:00 07:00 Intake Total 946.66 ml 880 ml Output Total 1120 ml 800 ml Balance -173.34 ml 80 ml Free Water 100 ml IV Total 126.66 ml Tube Feeding 720 ml 720 ml Other 160 ml Output Urine Total 1020 ml 700 ml Stool Total 100 ml 100 ml Objective General Appearance: WD/WN, no apparent distress, alert EENT: PERRL/EOMI, normal ENT inspection Neck: non-tender, normal alignment, supple, normal inspection Cardiovascular: normal peripheral pulses, normal rate, regular rhythm, no gallop/murmur, no JVD Respiratory/Chest: Mech vent; decreased breath sounds, crackles/rales, rhonchi - bilaterally, expiratory wheezing Abdomen: normal bowel sounds, non tender, soft, no organomegaly, no mass Extremities: normal range of motion Neurologic: private advisor II-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 Continue amikacin per ID=Dr Camejo. Pulmonary/Critical care=DR Allred. COVID NEG (2) Sepsis Assessment & Plan: Staph haemolyticus. Continue amikacin per ID=Dr Camejo (3) Down's syndrome (4) Dysphagia Assessment & Plan: S/P PEG (5) Seizure disorder Assessment & Plan: Continue keppra and depakote (6) Hypothyroidism Assessment & Plan: Continue synthroid (7) Acute respiratory failure Assessment & Plan: Pulmonary = Dr Allred; [facility] vent Joni Copeland MD Jun 24, 2020 13:01
--- NOTE | 2020-06-24 13:18 | NUR ---
CASE MANAGEMENT: REVIEW 06/24/2020 SI:SEPSIS. PNA. HX: DOWN SYNDROME 98.8 55 23 122/107 99% ON MECH VENT ET FIO2 100 WBC 15.3 H/H 7.9/24.3 NA+153 K+3.1 CL-116 BUN 30 BG 246 CA+7.4 PHOS 1.8 MG 1.6 ALB 1.3 IS:IV KPHOS/NS BOLUS X1 IV KCL BOLUS X1 IV MG SULFATE X2 BAGS IV LEVOPHED PROTOCOL ~TITRATED IV DOPAMINE PROTOCOL ~TITRATED LOTRIMIN TP BID CHEST X-RAY -improved aeration of both lungs. ICU PLAN OF CARE: PLACE RECTAL TUBE ADJUST FiO2 CONT REPARATORY CARE ~WEAN
--- NOTE | 2020-06-24 16:00 | NUR ---
NURSE NOTES: Patient provided with oral suctioning. Tolerated well. HOB remains elevated for aspiration precaution.
[2020-06-24] MEDS ORDERED: Tubing IV Secondary IV ONE (16:15)
[2020-06-24] MEDS ORDERED: D5W 550ml IV ONE (16:15)
[2020-06-24] MEDS ORDERED: NS 275ml ONE (16:15)
--- NOTE | 2020-06-24 18:41 | Cardiology Progress Note ---
Assessment/Plan Assessment/Plan sepsis respiratory failure ards renal insuf bacteremia abn cardiac enzyme due to demand sinus rafael stable thrombocytopenia resolved hypernatremia vent support abx wbc higher na increased still 3rd spacing alot cxr from 06/22 appears improved to my reading and with radiologsit reading as well tsh seems fine sig edema with hypernatremia need nauteresis eventually remains off pressor still at this time hr inthe 40's-60's no sig pauses on tele slower heart rate occur during sleep per technical support internship personally reviewed hopefully will be able to wean soon Subjective ROS Limited/Unobtainable: Yes Subjective on a vent not communicative but look awake Objective Last 24 Hour Vital Signs Date Time Temp Pulse Resp B/P (MAP) Pulse Ox O2 Delivery O2 Flow Rate FiO2 06/24/20 18:00 57 23 146/57 (86) 100 06/24/20 17:00 46 26 123/70 (87) 98 06/24/20 16:00 85 06/24/20 16:00 Mechanical Ventilator Mechanical Ventilator 06/24/20 16:00 50 26 116/56 (76) 98 06/24/20 16:00 62 06/24/20 15:05 58 26 85 06/24/20 15:00 56 26 117/75 (89) 99 06/24/20 14:00 58 25 108/64 (79) 100 06/24/20 13:00 50 24 117/54 (75) 98 06/24/20 12:00 100 06/24/20 12:00 Mechanical Ventilator Mechanical Ventilator 06/24/20 12:00 44 06/24/20 12:00 97.1 45 26 98/51 (67) 99 06/24/20 11:00 46 26 127/54 (78) 99 06/24/20 11:00 45 26 100 06/24/20 10:00 47 26 125/84 (98) 100 06/24/20 09:00 55 24 118/59 (78) 99 06/24/20 08:00 Mechanical Ventilator Mechanical Ventilator 06/24/20 08:00 100 06/24/20 08:00 98.8 55 23 122/107 (112) 99 06/24/20 07:41 49 06/24/20 07:05 46 27 100 06/24/20 07:00 46 25 128/55 (79) 100 06/24/20 06:00 55 21 129/60 (83) 100 06/24/20 05:00 63 24 100/61 (74) 100 06/24/20 04:00 98.7 57 26 102/49 (66) 98 06/24/20 04:00 Mechanical Ventilator Mechanical Ventilator 06/24/20 04:00 100 06/24/20 04:00 57 06/24/20 03:00 59 17 123/56 (78) 93 06/24/20 02:43 60 26 100 06/24/20 02:30 63 22 117/61 (79) 99 06/24/20 02:18 65 25 147/120 (129) 98 06/24/20 02:00 56 23 147/135 (139) 99 06/24/20 01:00 53 21 146/90 (108) 100 06/24/20 00:00 Mechanical Ventilator Mechanical Ventilator 06/24/20 00:00 98.4 55 26 129/62 (84) 99 06/24/20 00:00 100 06/24/20 00:00 55 06/23/20 23:30 54 26 100 06/23/20 23:00 57 21 126/88 (101) 99 06/23/20 22:00 48 26 123/67 (85) 100 06/23/20 21:00 50 26 135/79 (97) 97 06/23/20 20:00 100 06/23/20 20:00 98.6 61 21 115/97 (103) 99 06/23/20 20:00 Mechanical Ventilator Mechanical Ventilator 06/23/20 19:30 58 26 100 06/23/20 19:30 60 06/23/20 19:00 60 20 120/72 (88) 100 General Appearance: no apparent distress, on vent, patient on isolation, isolation precautions Cardiovascular: normal rate, bradycardia Respiratory/Chest: lungs clear Abdomen: normal bowel sounds, non tender, soft Extremities: no swelling Intake and Output 06/23/20 06/24/20 19:00 07:00 Intake Total 946.66 ml 880 ml Output Total 1120 ml 800 ml Balance -173.34 ml 80 ml Free Water 100 ml IV Total 126.66 ml Tube Feeding 720 ml 720 ml Other 160 ml Output Urine Total 1020 ml 700 ml Stool Total 100 ml 100 ml Laboratory Tests Test 06/24/20 03:10 White Blood Count 15.3 K/UL (4.8-10.8) H Red Blood Count 2.45 M/UL (4.20-5.40) L Hemoglobin 7.9 G/DL (12.0-16.0) L Hematocrit 24.3 % (37.0-47.0) L Mean Corpuscular Volume 99 FL (80-99) Mean Corpuscular Hemoglobin 32.4 PG (27.0-31.0) H Mean Corpuscular Hemoglobin Concent 32.7 G/DL (32.0-36.0) Red Cell Distribution Width 14.8 % (11.6-14.8) Platelet Count 140 K/UL (150-450) L Mean Platelet Volume 9.4 FL (6.5-10.1) Neutrophils (%) (Auto) % (45.0-75.0) Lymphocytes (%) (Auto) % (20.0-45.0) Monocytes (%) (Auto) % (1.0-10.0) Eosinophils (%) (Auto) % (0.0-3.0) Basophils (%) (Auto) % (0.0-2.0) Differential Total Cells Counted 100 Neutrophils % (Manual) 88 % (45-75) H Lymphocytes % (Manual) 5 % (20-45) L Monocytes % (Manual) 7 % (1-10) Eosinophils % (Manual) 0 % (0-3) Basophils % (Manual) 0 % (0-2) Band Neutrophils 0 % (0-8) Platelet Estimate Decreased L Platelet Morphology Normal Hypochromasia 3+ Anisocytosis 1+ Sodium Level 153 MMOL/L (136-145) H Potassium Level 3.1 MMOL/L (3.5-5.1) L Chloride Level 116 MMOL/L (98-107) H Carbon Dioxide Level 28 MMOL/L (21-32) Anion Gap 9 mmol/L (5-15) Blood Urea Nitrogen 30 mg/dL (7-18) H Creatinine 0.7 MG/DL (0.55-1.30) Estimat Glomerular Filtration Rate > 60 mL/min (>60) Glucose Level 246 MG/DL (74-106) H Calcium Level 7.4 MG/DL (8.5-10.1) L Phosphorus Level 1.8 MG/DL (2.5-4.9) L Magnesium Level 1.6 MG/DL (1.8-2.4) L Total Bilirubin 0.5 MG/DL (0.2-1.0) Aspartate Amino Transf (AST/SGOT) 29 U/L (15-37) Alanine Aminotransferase (ALT/SGPT) 69 U/L (12-78) Alkaline Phosphatase 55 U/L (46-116) Total Protein 4.7 G/DL (6.4-8.2) L Albumin 1.3 G/DL (3.4-5.0) L Globulin 3.4 g/dL Albumin/Globulin Ratio 0.4 (1.0-2.7) L Valproic Acid (Depakene) Level 21 MCG/ML (50-100) L Microbiology Date/Time Source Procedure Growth Status 06/22/20 18:05 Stool Clostridium difficile Toxin Assay - Final Complete Josue Pantoja MD Jun 24, 2020 18:41
--- NOTE | 2020-06-24 19:21 | NUR ---
NURSE HAND-OFF REPORT: Latest Vital Signs: Temperature 97.1 , Pulse 69 , B/P 105 /57 , Respiratory Rate 22 , O2 SAT 94 , Mechanical Ventilator, O2 Flow Rate 15.0 . Vital Sign Comment: EKG Rhythm: Sinus Bradycardia Rhythm change?: N MD Notified?: - MD Response: Latest Osorio Fall Score: 70 Fall Risk: High Risk Safety Measures: Call light Within Reach, Bed Alarm Zone 1, Side Rails Side Rails x3, Bed position Low and Locked. Fall Precautions: Yellow Socks Door Sign Patient Fall Education Report given to Cole .
[2020-06-24] MEDS: Dyna-Hex 2% Top Sol 2oz TOPIC SCH (19:31)
--- NOTE | 2020-06-24 19:51 | NUR ---
NURSE NOTES: PATIENT AWOKE, OPEN EYES, ABLE TO EYE CONTACT BUT DID NOT FOLLOW COMMANDS, ON ETT TO VENT, AC 26/TV 500/FIO2 85%/PEEP 10, O2 SATURATION OVER 98% NOTED, HR 60'S/MIN, SR NOTED, G TUBE INTACT AND PATENT, ONGOING VITAL AF 1.2 AT 60ML/HR, RESIDUE 20ML NOTED, KEPT HOB OVER 30 DEGREES, ASPIRATION AND SZ PRECAUTION, ABDOMEN SOFT, NON TENDER, RECTAL TUBE INTACT AND PATENT, BROWN COLOR STOOL OUTED, F/C INTACT AND PATENT, HARISH COLOR URINE OUTED, PICC LINE TO LEFT UPPER ARM, INTACT AND PATENT, ON P200 BED, MADE LOWER BED POSITION, ON BED ALARM AND LOCKED, PLACE CALL LIGHT WITHIN REACH, WILL CONTINUE TO MONITOR.
--- NOTE | 2020-06-24 21:55 | NUR ---
NURSE NOTES: PATIENT AWOKE, NO DISTRESS NOTED, REPOSITIONED, WILL CONTINUE TO MONITOR.
[2020-06-25] VITALS (24 sets, daily range): BP systolic 99–143; BP diastolic 45–84
--- NOTE | 2020-06-25 00:10 | NUR ---
NURSE NOTES: PATIENT AWOKE, NO HULL OR SOB NOTED AT THIS TIME, WILL CONTINUE TO MONITOR.
--- NOTE | 2020-06-25 02:19 | NUR ---
NURSE NOTES: PATIENT AWOKE, TOLERATED G TUBE FEEDING, F/C INTACT AND PATENT, HARISH COLOR URINE OUTED, WILL CONTINUE TO MONITOR.
--- NOTE | 2020-06-25 04:15 | NUR ---
NURSE NOTES: MORNING CARE AND ORAL CARE WAS DONE, RECTAL TUBE LEAKED, FIXED RECTAL TUBE, WILL CONTINUE TO MONITOR.
[2020-06-25 04:36] LABS: HEMATOCRIT 23.9 % (37.0-47.0); MEAN CORPUSCULAR VOLUME 98 FL (80-99); PLATELET COUNT 126 K/UL (150-450); RED BLOOD COUNT 2.45 M/UL (4.20-5.40); RED CELL DISTRIBUTION WIDTH 14.7 % (11.6-14.8); WHITE BLOOD COUNT 15.7 K/UL (4.8-10.8)
[2020-06-25 05:01] LABS: ALANINE AMINOTRANSFERASE 59 U/L (12-78); ALBUMIN 1.3 G/DL (3.4-5.0); ALBUMIN/GLOBULIN RATIO 0.4 (1.0-2.7); ALKALINE PHOSPHATASE 56 U/L (46-116); ANION GAP 10 mmol/L (5-15); ASPARTATE AMINO TRANSFERASE 20 U/L (15-37); BILIRUBIN,TOTAL 0.5 MG/DL (0.2-1.0); BLOOD UREA NITROGEN 30 mg/dL (7-18); CALCIUM 7.3 MG/DL (8.5-10.1); CARBON DIOXIDE 26 MMOL/L (21-32); CHLORIDE 114 MMOL/L (98-107); CREATININE 0.7 MG/DL (0.55-1.30); PHOSPHORUS 2.2 MG/DL (2.5-4.9); POTASSIUM 2.8 MMOL/L (3.5-5.1); SODIUM 149 MMOL/L (136-145)
[2020-06-25] MEDS: Valproic Acid 250mg/5ml Liquid GT SCH ×3 (05:33→21:36)
[2020-06-25] MEDS: Midodrine 10mg tab GT SCH ×3 (05:34→21:36)
[2020-06-25] MEDS: Hydrocortisone 100mg Inj IV SCH ×3 (05:34→21:36)
--- NOTE | 2020-06-25 06:31 | NUR ---
NURSE NOTES: PATIENT ASLEEP STATUS, NO ACUTE DISTRESS NOTED AT THIS SHIFT.
--- NOTE | 2020-06-25 06:49 | NUR ---
NURSE NOTES: LE: CALLED DR. SUN REGARDING POTASSIUM LEVEL 2.8 THAT LEFT MESSAGE.
--- NOTE | 2020-06-25 07:30 | NUR ---
NURSE HAND-OFF REPORT: Latest Vital Signs: Temperature 98.4 , Pulse 67 , B/P 129 /69 , Respiratory Rate 21 , O2 SAT 99 , Mechanical Ventilator, O2 Flow Rate 15.0 . Vital Sign Comment: EKG Rhythm: Sinus Rhythm Rhythm change?: N MD Notified?: - MD Response: Latest Osorio Fall Score: 70 Fall Risk: High Risk Safety Measures: Call light Within Reach, Bed Alarm Zone 1, Side Rails Side Rails x3, Bed position Low and Locked. Fall Precautions: Yellow Socks Door Sign Patient Fall Education Report given to TAI DE LEON.
--- NOTE | 2020-06-25 07:31 | NUR ---
NURSE NOTES: Received patient from Cole RN. Patient is awake, alert and oriented x2. Sinus Rhythm on the heart monitor, HR 66. Receiving oxygen via ET Tube 7.5 22cm at the lip line, vent settings: AC 26, TV 500, FiO2 85%, PEEP 10. IV site is Left Upper Arm PICC patent and intact. G-tube is intact and receiving Vital AF at 60cc/hr. Gregorio catheter is intact and draining, rectal tube is also intact and draining. Bed is locked, placed in lowest position, side rails up x3, bed alarm on, head of bed elevated, call light within reach. Will continue to monitor.
[2020-06-25] MEDS: Norepinephrine Bitartrate 16 MG in D5W 500ml 484 ML IV SCH (07:45)
[2020-06-25] MEDS: Pantoprazole Inj IV SCH (08:25)
--- NOTE | 2020-06-25 08:30 | NUR ---
NURSE NOTES: Medications given as prescribed, no adverse reaction noted. Turned and repositioned patient. Pain assessment patient's FLACC score was 0. Patient is afebrile, will continue to monitor.
[2020-06-25] MEDS ORDERED: Potassium Phosphate 15mm/250ml 250 ML IVPB SCH (09:00)
[2020-06-25] MEDS: Potassium Phosphate 15 MM in NS 275 ML IV SCH ×2 (09:28→13:28)
--- NOTE | 2020-06-25 09:31 | NUR ---
RADIOLOGY DEPT., CHEST X-RAY DONE.-P.DYE
--- NOTE | 2020-06-25 10:20 | Infectious Diseases Prog Note ---
Assessment/Plan ASSESSMENT: sp code blue 06/03 Septic Shock; SP Fever, recurrent- SP Leukocytosis; persistent/fluctuating -06/17 u/a no pyuria -06/16 Bcx NTD (Picc line) -06/14 Bcx NTD ucx Neg sp cx C. parapsilopsis -06/03 u/a no pyuria Pneumonia.- COVID 19 neg x3 Acute hypoxic resp failure on VM> NRB 15l 100%; hypoxic on ABG> now VDRF 06/03- Fio2 80% >100% 06/05> 60% 06/09 >80% 06/10 >95% 06/18 >90% 06/22 >60% 06/23 -06/22 CXR: Improved aeration of both lungs. -06/13 CXR:Small bilateral pleural effusions with minor edema. Stable edema with mild worsening in the degree of pleural effusion on the right. -06/09 sp cx Neg 06/08 CXR: Extensive bilateral interstitial and airspace disease appears similar to the prior exam. Moderate to large bilateral pleural effusions appear unchanged. 06/05 CXR: Increasing left upper lobe dense consolidation and likely increasing bilateral pleural fluid. Persistent diffuse dense consolidation elsewhere -06/03 sp cx normal resp marie -06/02 CXR: Increased atelectasis of the right lung, since prior exam of 3 days earlier. New or increased right pleural effusion. Increased left basilar consolidation and/or pleural fluid -COVID Rapid PCR neg 05/31, 05/31, 06/03 -05/30 spc x Group G strep -05/30 CXR: Reduced lung volumes. Patchy bilateral predominantly interstitial pulmonary opacities. Could be from edema and/or pneumonia. There is a broader differential. -legionella ag urine, blasto ab, Histo ab, HIV ab screen, FRANCIS, ANCA neg Persistent, high grade bacteremia- -05/30 Bcx 4/4 sets S. haemolyticus; 05/31 Bcx 3/4 S/ epi; 06/04 Bcx 1.4 S. warnerri; 06/06 Bcx Neg -2d echo: no vegetaions seen ua/ wbc 10-15, nit neg, leuk +1; ucx Neg LEANN; -supratherapeutic vanco levels -Seizure disorder. - Hypothyroidism. - Down syndrome. History of PEG tube placement. OR resident PLAN: Continue to monitor off abx 06/22 SP Meropenem #18, IV AMikacin #7 06/12/20 SP Daptomycin #11 06/10 SP MIcafungin #7, Linezolid #5 06/05 SP Azithromycin #7/7 06/03 SP Ceftriaxone #2 06/02 SP IV Vancomycin #4, Zosyn #4 05/30 SP Cefepime x1, Flagyl x1 - Monitor CBC, BMP. .f/u Repeat cx - COVID neg x3 - Monitor chest x-ray. - Monitor the patient's clinical course and labs. Based on those, we will do further recommendation. -f/u Bcx from picc line, cdiff if diarrhea -f/u Fungitell, asp ag, flow cytometry -Once stable, CT chest/abd/pw/ given persistent leukocytosis -poor prognosis Thank you, Dr. Allred, for allowing me to participate in the care of this patient. I will follow the patient with you at this hospitalization. Discussed with RN Subjective Allergies: Coded Allergies: No Known Allergies (Unverified , 10/16/18) afebrile wbc remains at 15 Fio2 85% off abx Objective Last 24 Hour Vital Signs Date Time Temp Pulse Resp B/P (MAP) Pulse Ox O2 Delivery O2 Flow Rate FiO2 06/25/20 08:00 85 06/25/20 08:00 99.2 66 21 124/81 (95) 97 06/25/20 08:00 Mechanical Ventilator Mechanical Ventilator 06/25/20 07:45 124/81 06/25/20 07:09 50 26 85 06/25/20 07:00 60 24 106/67 (80) 99 06/25/20 06:00 67 21 129/69 (89) 99 06/25/20 05:00 65 22 126/68 (87) 100 06/25/20 04:00 67 06/25/20 04:00 85 06/25/20 04:00 Mechanical Ventilator Mechanical Ventilator 06/25/20 04:00 98.4 67 26 111/77 (88) 100 06/25/20 03:20 78 26 85 06/25/20 03:00 73 20 102/66 (78) 99 06/25/20 02:00 66 24 121/66 (84) 100 06/25/20 01:00 63 21 121/59 (79) 100 06/25/20 00:00 85 06/25/20 00:00 98.4 60 22 116/55 (75) 100 06/25/20 00:00 Mechanical Ventilator Mechanical Ventilator 06/24/20 23:58 59 06/24/20 23:00 65 21 131/77 (95) 100 06/24/20 22:50 48 26 85 06/24/20 22:00 61 22 107/75 (86) 100 06/24/20 21:00 57 23 105/54 (71) 100 06/24/20 20:00 85 06/24/20 20:00 Mechanical Ventilator Mechanical Ventilator 06/24/20 20:00 98.4 58 19 97/54 (68) 100 06/24/20 19:32 59 06/24/20 19:00 69 22 105/57 (73) 94 06/24/20 18:51 55 26 85 06/24/20 18:00 57 23 146/57 (86) 100 06/24/20 17:00 46 26 123/70 (87) 98 06/24/20 16:00 85 06/24/20 16:00 Mechanical Ventilator Mechanical Ventilator 06/24/20 16:00 50 26 116/56 (76) 98 06/24/20 16:00 62 06/24/20 15:05 58 26 85 06/24/20 15:00 56 26 117/75 (89) 99 06/24/20 14:00 58 25 108/64 (79) 100 06/24/20 13:00 50 24 117/54 (75) 98 06/24/20 12:00 100 06/24/20 12:00 Mechanical Ventilator Mechanical Ventilator 06/24/20 12:00 44 06/24/20 12:00 97.1 45 26 98/51 (67) 99 06/24/20 11:00 46 26 127/54 (78) 99 06/24/20 11:00 45 26 100 Height (Feet): 5 Height (Inches): 3.00 Weight (Pounds): 172 HEENT: No pale conjunctivae. No icterus. ETT in place NECK: No lymphadenopathy. CHEST: Coarse breathing sounds. HEART: S1 and S2. ABDOMEN: Soft. PEG tube in place. EXTREMITIES: No cyanosis at this time . SKIN: no rash Microbiology Date/Time Source Procedure Growth Status 06/22/20 18:05 Stool Clostridium difficile Toxin Assay - Final Complete Laboratory Tests Test 06/25/20 03:50 06/25/20 08:05 White Blood Count 15.7 K/UL (4.8-10.8) H Red Blood Count 2.45 M/UL (4.20-5.40) L Hemoglobin 8.0 G/DL (12.0-16.0) L Hematocrit 23.9 % (37.0-47.0) L Mean Corpuscular Volume 98 FL (80-99) Mean Corpuscular Hemoglobin 32.8 PG (27.0-31.0) H Mean Corpuscular Hemoglobin Concent 33.6 G/DL (32.0-36.0) Red Cell Distribution Width 14.7 % (11.6-14.8) Platelet Count 126 K/UL (150-450) L Mean Platelet Volume 9.0 FL (6.5-10.1) Neutrophils (%) (Auto) % (45.0-75.0) Lymphocytes (%) (Auto) % (20.0-45.0) Monocytes (%) (Auto) % (1.0-10.0) Eosinophils (%) (Auto) % (0.0-3.0) Basophils (%) (Auto) % (0.0-2.0) Neutrophils % (Manual) Pending Lymphocytes % (Manual) Pending Platelet Estimate Pending Platelet Morphology Pending Sodium Level 149 MMOL/L (136-145) H Potassium Level 2.8 MMOL/L (3.5-5.1) L Chloride Level 114 MMOL/L (98-107) H Carbon Dioxide Level 26 MMOL/L (21-32) Anion Gap 10 mmol/L (5-15) Blood Urea Nitrogen 30 mg/dL (7-18) H Creatinine 0.7 MG/DL (0.55-1.30) Estimat Glomerular Filtration Rate > 60 mL/min (>60) Glucose Level 252 MG/DL (74-106) H Calcium Level 7.3 MG/DL (8.5-10.1) L Phosphorus Level 2.2 MG/DL (2.5-4.9) L Magnesium Level 2.0 MG/DL (1.8-2.4) Total Bilirubin 0.5 MG/DL (0.2-1.0) Aspartate Amino Transf (AST/SGOT) 20 U/L (15-37) Alanine Aminotransferase (ALT/SGPT) 59 U/L (12-78) Alkaline Phosphatase 56 U/L (46-116) Total Protein 4.9 G/DL (6.4-8.2) L Albumin 1.3 G/DL (3.4-5.0) L Globulin 3.6 g/dL Albumin/Globulin Ratio 0.4 (1.0-2.7) L Arterial Blood pH 7.558 (7.350-7.450) Arterial Blood Partial Pressure CO2 33.5 mmHg (35.0-45.0) L Arterial Blood Partial Pressure O2 87.5 mmHg (75.0-100.0) Arterial Blood HCO3 29.2 mmol/L (22.0-26.0) H Arterial Blood Oxygen Saturation 96.2 % (95-100) Arterial Blood Base Excess 6.6 (-2-2) H Jonathan Test Positive Current Medications Medications (Trade) Dose Ordered Sig/Katy Route PRN Reason Start Time Stop Time Status Last Admin Dose Admin Acetaminophen (Tylenol) 650 mg Q4H PRN GT FEVER 06/03/20 11:45 07/03/20 11:44 06/15/20 03:17 Chlorhexidine Gluconate (Alla-Hex 2%) 1 applic DAILY@1999 TOPIC 06/08/20 20:00 09/06/20 19:59 06/24/20 19:31 Clotrimazole (Lotrimin) 1 applic Q12HR TOPIC 06/07/20 13:00 09/05/20 12:59 06/25/20 08:25 Dextrose (Dextrose 50%) 25 ml Q30M PRN IV Hypoglycemia 06/03/20 11:30 08/28/20 11:29 Dextrose (Dextrose 50%) 50 ml Q30M PRN IV Hypoglycemia 06/03/20 11:30 08/28/20 11:29 Dopamine HCl/ Dextrose 250 ml @ 0 mls/hr Q24H IV 06/12/20 11:15 09/10/20 11:14 06/14/20 19:47 Hydrocortisone (Solu-CORTEF) 100 mg EVERY 8 HOURS IV 06/07/20 14:00 09/05/20 13:59 06/25/20 05:34 Levothyroxine Sodium (Synthroid) 75 mcg DAILY GT 06/04/20 09:00 06/30/20 08:59 06/25/20 08:25 Loperamide HCl (Imodium) 2 mg Q6H PRN NG Diarrhea 06/24/20 10:30 07/24/20 10:29 Midodrine (Pro-Amatine) 10 mg Q8HR GT 06/05/20 14:00 09/03/20 13:59 06/25/20 05:34 Norepinephrine Bitartrate 16 mg/ Dextrose 500 ml @ 0 mls/hr Q24H IV 06/08/20 07:45 07/07/20 12:59 06/12/20 08:43 Ondansetron HCl (Zofran) 4 mg Q6H PRN IVP Nausea & Vomiting 06/03/20 12:00 06/29/20 11:59 Pantoprazole (Protonix) 40 mg DAILY IV 06/04/20 09:00 06/30/20 08:59 06/25/20 08:25 Phenylephrine HCl 50 mg/Dextrose 250 ml @ 0 mls/hr Q24H PRN IV For hypotension 06/06/20 17:45 07/06/20 17:44 06/08/20 01:49 Polyethylene Glycol (Miralax) 17 gm DAILYPRN PRN GT Constipation 06/03/20 12:00 06/29/20 11:59 Potassium Phosphate 15 mm/ Sodium Chloride 280 ml @ 70 mls/hr Q4H IV 06/25/20 09:00 06/25/20 16:59 06/25/20 09:28 Potassium Chloride 100 ml @ 50 mls/hr EVERY 2 HOURS IVPB 06/25/20 08:00 06/25/20 15:59 06/25/20 08:25 Valproic Acid (Depakene) 500 mg EVERY 8 HOURS GT 06/03/20 14:00 06/29/20 21:59 06/25/20 05:33 Suki Camejo M.D. Jun 25, 2020 10:19
[2020-06-25] MEDS: DOPamine 400mg/250ml 250 ML IV SCH (10:43)
--- NOTE | 2020-06-25 10:44 | Pulmonolgy Critical Care Note ---
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, 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, 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 with: nurses, 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, 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 - Objective Last 24 Hour Vital Signs Date Time Temp Pulse Resp B/P (MAP) Pulse Ox O2 Delivery O2 Flow Rate FiO2 06/25/20 10:38 55 26 85 06/25/20 10:00 48 26 115/59 (77) 98 06/25/20 09:00 48 26 131/56 (81) 99 06/25/20 08:07 59 06/25/20 08:00 85 06/25/20 08:00 99.2 66 21 124/81 (95) 97 06/25/20 08:00 Mechanical Ventilator Mechanical Ventilator 06/25/20 07:45 124/81 06/25/20 07:09 50 26 85 06/25/20 07:00 60 24 106/67 (80) 99 06/25/20 06:00 67 21 129/69 (89) 99 06/25/20 05:00 65 22 126/68 (87) 100 06/25/20 04:00 67 06/25/20 04:00 85 06/25/20 04:00 Mechanical Ventilator Mechanical Ventilator 06/25/20 04:00 98.4 67 26 111/77 (88) 100 06/25/20 03:20 78 26 85 06/25/20 03:00 73 20 102/66 (78) 99 06/25/20 02:00 66 24 121/66 (84) 100 06/25/20 01:00 63 21 121/59 (79) 100 06/25/20 00:00 85 06/25/20 00:00 98.4 60 22 116/55 (75) 100 06/25/20 00:00 Mechanical Ventilator Mechanical Ventilator 06/24/20 23:58 59 06/24/20 23:00 65 21 131/77 (95) 100 06/24/20 22:50 48 26 85 06/24/20 22:00 61 22 107/75 (86) 100 06/24/20 21:00 57 23 105/54 (71) 100 06/24/20 20:00 85 06/24/20 20:00 Mechanical Ventilator Mechanical Ventilator 06/24/20 20:00 98.4 58 19 97/54 (68) 100 06/24/20 19:32 59 06/24/20 19:00 69 22 105/57 (73) 94 06/24/20 18:51 55 26 85 06/24/20 18:00 57 23 146/57 (86) 100 06/24/20 17:00 46 26 123/70 (87) 98 06/24/20 16:00 85 06/24/20 16:00 Mechanical Ventilator Mechanical Ventilator 06/24/20 16:00 50 26 116/56 (76) 98 06/24/20 16:00 62 06/24/20 15:05 58 26 85 06/24/20 15:00 56 26 117/75 (89) 99 06/24/20 14:00 58 25 108/64 (79) 100 06/24/20 13:00 50 24 117/54 (75) 98 06/24/20 12:00 100 06/24/20 12:00 Mechanical Ventilator Mechanical Ventilator 06/24/20 12:00 44 06/24/20 12:00 97.1 45 26 98/51 (67) 99 06/24/20 11:00 46 26 127/54 (78) 99 06/24/20 11:00 45 26 100 Status: awake HEENT: atraumatic Neck: full ROM Lungs: rales, rhonchi Heart: HR/BP stable Abdomen: soft, active bowel sounds Extremities: no C/C/E Micro: Microbiology Date/Time Source Procedure Growth Status 06/22/20 18:05 Stool Clostridium difficile Toxin Assay - Final Complete Accucheck: 131 Critical Care - Subjective ROS Limited/Unobtainable: Yes FI02: 85 Vent Support Breath Rate: 26 Vent Support Mode: AC Vent Tidal Volume: 500 Sputum Amount: Moderate PEEP: 10.0 PIP: 45 Tube Feeding Amount: 60 I&O: Intake and Output 06/24/20 06/25/20 19:00 07:00 Intake Total 1241.6667 ml 880 ml Output Total 845 ml 1000 ml Balance 396.6667 ml -120 ml Free Water 60 ml IV Total 581.6667 ml Tube Feeding 600 ml 720 ml Other 160 ml Output Urine Total 825 ml 1000 ml Stool Total 20 ml 0 ml # Bowel Movements 1 CXR: no change ET-Tube: 7.5 ET Position: 22 Labs: Laboratory Tests Test 06/25/20 03:50 06/25/20 08:05 White Blood Count 15.7 K/UL (4.8-10.8) H Red Blood Count 2.45 M/UL (4.20-5.40) L Hemoglobin 8.0 G/DL (12.0-16.0) L Hematocrit 23.9 % (37.0-47.0) L Mean Corpuscular Volume 98 FL (80-99) Mean Corpuscular Hemoglobin 32.8 PG (27.0-31.0) H Mean Corpuscular Hemoglobin Concent 33.6 G/DL (32.0-36.0) Red Cell Distribution Width 14.7 % (11.6-14.8) Platelet Count 126 K/UL (150-450) L Mean Platelet Volume 9.0 FL (6.5-10.1) Neutrophils (%) (Auto) % (45.0-75.0) Lymphocytes (%) (Auto) % (20.0-45.0) Monocytes (%) (Auto) % (1.0-10.0) Eosinophils (%) (Auto) % (0.0-3.0) Basophils (%) (Auto) % (0.0-2.0) Neutrophils % (Manual) Pending Lymphocytes % (Manual) Pending Platelet Estimate Pending Platelet Morphology Pending Sodium Level 149 MMOL/L (136-145) H Potassium Level 2.8 MMOL/L (3.5-5.1) L Chloride Level 114 MMOL/L (98-107) H Carbon Dioxide Level 26 MMOL/L (21-32) Anion Gap 10 mmol/L (5-15) Blood Urea Nitrogen 30 mg/dL (7-18) H Creatinine 0.7 MG/DL (0.55-1.30) Estimat Glomerular Filtration Rate > 60 mL/min (>60) Glucose Level 252 MG/DL (74-106) H Calcium Level 7.3 MG/DL (8.5-10.1) L Phosphorus Level 2.2 MG/DL (2.5-4.9) L Magnesium Level 2.0 MG/DL (1.8-2.4) Total Bilirubin 0.5 MG/DL (0.2-1.0) Aspartate Amino Transf (AST/SGOT) 20 U/L (15-37) Alanine Aminotransferase (ALT/SGPT) 59 U/L (12-78) Alkaline Phosphatase 56 U/L (46-116) Total Protein 4.9 G/DL (6.4-8.2) L Albumin 1.3 G/DL (3.4-5.0) L Globulin 3.6 g/dL Albumin/Globulin Ratio 0.4 (1.0-2.7) L Arterial Blood pH 7.558 (7.350-7.450) Arterial Blood Partial Pressure CO2 33.5 mmHg (35.0-45.0) L Arterial Blood Partial Pressure O2 87.5 mmHg (75.0-100.0) Arterial Blood HCO3 29.2 mmol/L (22.0-26.0) H Arterial Blood Oxygen Saturation 96.2 % (95-100) Arterial Blood Base Excess 6.6 (-2-2) H Jonathan Test Positive Elayne Allred MD Jun 25, 2020 10:44
--- NOTE | 2020-06-25 13:42 | NUR ---
NURSE NOTES: Endotracheal suctioning done on patient, thin clear copious amounts of sputum removed. Turned and repositioned patient, oral care given. Will continue to monitor.
[2020-06-25] MEDS ORDERED: NS 275ml ONE (13:57)
[2020-06-25] MEDS ORDERED: Tubing IV Secondary IV ONE (13:57)
--- NOTE | 2020-06-25 14:03 | Diagnostic Imaging Report ---
Indication: Dyspnea Technique: Portable AP view of the chest Comparison: 06/22/2020 Findings: Endotracheal tube and left arm PICC line remain in place, satisfactory position. Heart size appears stable. There is persistent interstitial and bilateral alveolar opacities. There is slight interval worsening of aeration particularly left mid and upper lung. No appreciable pneumothorax. Small left pleural effusion not excluded. Osseous structures grossly stable. IMPRESSION: Extensive interstitial and bilateral alveolar opacities, with interval worsening of aeration of the left mid and upper lung compared to the prior exam. Endotracheal tube and left arm PICC line remain in place.
--- NOTE | 2020-06-25 14:46 | Nephrology Progress Note ---
Assessment/Plan Problem List: (1) LEANN (acute kidney injury) (2) Respiratory failure requiring intubation (3) Down's syndrome (4) Seizure disorder (5) Hypothyroidism Assessment Acute renal failure, likely due to hypotension Acute respiratory distress, hypoxia Seizure disorder Hypothyroidism Down syndrome Full code Fluid challenge with IV fluids and albumin Midodrine for BP above 100 systolic Check TSH level Check Correct level Monitor renal parameters Urine studies Per orders Plan June 25: Labs reviewed. Potassium, phosphorus, hemoglobin, are all low. Potassium and phosphorus IV replacement given. Continue to monitor electrolytes and CBC. Patient remains full code. June 24: Lab reviewed. Low phosphorus low magnesium and low potassium was addressed. Hemoglobin drifting lower. Continue per consultants. Patient remains full code. June 23: Labs reviewed. Patient continues to be on ventilator. D5W for high sodium and also potassium chloride intravenously as supplement given. Hemoglobin 8.4. Continue to monitor electrolytes and renal parameters. June 22: Labs reviewed. Low potassium and high sodium noted. Hemoglobin 8.1 stable. Aim to correct abnormal electrolyte. Continue rest. Will give 2 boluses of D5W 500 cc. June 21: Lab reviewed. Abnormal electrolytes noted and addressed. June 20: Labs reviewed. Potassium supplement given. Patient remains full code. Continue per consultants. June 19: Lab reviewed. Electrolyte abnormalities addressed. Continue per pulmonary and ID. June 18: Lab reviewed. Status unchanged. Serum sodium 151 unchanged. Stable from renal standpoint of view. June 17: Labs reviewed. Status quo. D5W 500 cc IV ordered. Continue to monitor renal parameters. June 16: Status quo. Labs reviewed. Overall condition unchanged. Patient was transfused and hemoglobin higher. Continue current management. Patient remains full code. June 15: Status quo. Overall condition poor. Very low albumin. Edematous. Hypotensive. Hemoglobin lower. Anemia work-up ordered. I favor transfusion 2 units of packed RBCs. Patient remains full code. I favor supportive care only. Will discuss. June 14: Electrolyte abnormalities addressed. Serum creatinine lower. Continue per current management. June 13: Status unchanged. Lab reviewed. Serum potassium 2.7. IV potassium chloride ordered. Serum creatinine low at 1.6 stable. Blood pressure 90s systolic June 12: Status quo. Labs reviewed. Renal parameters stable. Serum creatinine down to 1.6. Medication list reviewed. Continues to be on midodrine. Continue per consultants. Sofie 3: Status quo. Labs reviewed. Electrolytes adjusted. Serum creat inine down to 1.8. Continue per consultants. June 10: Status quo. Labs reviewed. Phosphorus supplement IV given. Serum creatinine 2. Continue per consultants. June 09: Requires less pressors. Albumin bolus given. 1 dose of Lasix IV ordered as the patient severely edematous. Patient serum albumin is very low. Continue per consultants. June 08: Continues to be intubated. Labs reviewed. Serum creatinine 1.9 unchanged. Blood pressure more stable. Off 1 of the pressors. Continue to monitor renal parameters. Continue per consultants. Patient now on hydrocortisone 100 mg every 8 hours. Will decrease IV fluid. Normal saline down to 50 cc an hour. June 07: Intubated. Labs reviewed. Creatinine 1.9 unchanged. Continue same treatment plan. Per consultants. Overall poor prognosis since the patient remains on pressors and her pulmonary status is worsening. June 06: Remains intubated. Labs reviewed. Creatinine 1.9. Blood pressure systolic 90s. Continue per consultants. June 05: Remains intubated. Labs reviewed. Serum creatinine lower to 2. Vancomycin level lower. Remains hypotensive on pressors. Will increase midodrine to 10 mg every 8 hours. Continue per consultants. Continue to monitor renal parameters. June 04: Patient now in ICU. Intubated. On pressors. Labs reviewed. Will increase midodrine. Aim to keep blood pressure over 100 systolic. Will give albumin bolus. Will check vancomycin level which was elevated when checked previously on June 01. Will monitor renal parameters. Continue per consultants. Subjective ROS Limited/Unobtainable: Yes Objective Objective Last 24 Hour Vital Signs Date Time Temp Pulse Resp B/P (MAP) Pulse Ox O2 Delivery O2 Flow Rate FiO2 06/25/20 14:00 61 25 116/70 (85) 99 06/25/20 14:00 61 21 116/70 (85) 98 06/25/20 13:00 50 26 129/58 (81) 98 06/25/20 12:00 Mechanical Ventilator Mechanical Ventilator 06/25/20 12:00 85 06/25/20 12:00 98.7 50 23 143/57 (85) 98 06/25/20 11:39 49 06/25/20 11:00 48 26 121/45 (70) 97 9/17/20 10:43 115/59 06/25/20 10:38 55 26 85 06/25/20 10:00 48 26 115/59 (77) 98 06/25/20 09:00 48 26 131/56 (81) 99 06/25/20 08:07 59 06/25/20 08:00 85 06/25/20 08:00 99.2 66 21 124/81 (95) 97 06/25/20 08:00 Mechanical Ventilator Mechanical Ventilator 06/25/20 07:45 124/81 06/25/20 07:09 50 26 85 06/25/20 07:00 60 24 106/67 (80) 99 06/25/20 06:00 67 21 129/69 (89) 99 06/25/20 05:00 65 22 126/68 (87) 100 06/25/20 04:00 67 06/25/20 04:00 85 06/25/20 04:00 Mechanical Ventilator Mechanical Ventilator 06/25/20 04:00 98.4 67 26 111/77 (88) 100 06/25/20 03:20 78 26 85 06/25/20 03:00 73 20 102/66 (78) 99 06/25/20 02:00 66 24 121/66 (84) 100 06/25/20 01:00 63 21 121/59 (79) 100 06/25/20 00:00 85 06/25/20 00:00 98.4 60 22 116/55 (75) 100 06/25/20 00:00 Mechanical Ventilator Mechanical Ventilator 06/24/20 23:58 59 06/24/20 23:00 65 21 131/77 (95) 100 06/24/20 22:50 48 26 85 06/24/20 22:00 61 22 107/75 (86) 100 06/24/20 21:00 57 23 105/54 (71) 100 06/24/20 20:00 85 06/24/20 20:00 Mechanical Ventilator Mechanical Ventilator 06/24/20 20:00 98.4 58 19 97/54 (68) 100 06/24/20 19:32 59 06/24/20 19:00 69 22 105/57 (73) 94 06/24/20 18:51 55 26 85 06/24/20 18:00 57 23 146/57 (86) 100 06/24/20 17:00 46 26 123/70 (87) 98 06/24/20 16:00 85 06/24/20 16:00 Mechanical Ventilator Mechanical Ventilator 06/24/20 16:00 50 26 116/56 (76) 98 06/24/20 16:00 62 06/24/20 15:05 58 26 85 06/24/20 15:00 56 26 117/75 (89) 99 Intake and Output 06/24/20 06/25/20 19:00 07:00 Intake Total 1241.6667 ml 880 ml Output Total 845 ml 1000 ml Balance 396.6667 ml -120 ml Free Water 60 ml IV Total 581.6667 ml Tube Feeding 600 ml 720 ml Other 160 ml Output Urine Total 825 ml 1000 ml Stool Total 20 ml 0 ml # Bowel Movements 1 Laboratory Tests 06/25/20 03:50: White Blood Count 15.7H, Red Blood Count 2.45L, Hemoglobin 8.0L, Hematocrit 23.9L, Mean Corpuscular Volume 98, Mean Corpuscular Hemoglobin 32.8H, Mean Corpuscular Hemoglobin Concent 33.6, Red Cell Distribution Width 14.7, Platelet Count 126L, Mean Platelet Volume 9.0, Neutrophils (%) (Auto) , Lymphocytes (%) (Auto) , Monocytes (%) (Auto) , Eosinophils (%) (Auto) , Basophils (%) (Auto) , Differential Total Cells Counted 100, Neutrophils % (Manual) 94H, Lymphocytes % (Manual) 3L, Monocytes % (Manual) 3, Eosinophils % (Manual) 0, Basophils % (Manual) 0, Band Neutrophils 0, Platelet Estimate DecreasedL, Platelet Morphology Normal, Hypochromasia 2+, Anisocytosis 1+, Sodium Level 149H, Potassium Level 2.8L, Chloride Level 114H, Carbon Dioxide Level 26, Anion Gap 10, Blood Urea Nitrogen 30H, Creatinine 0.7, Estimat Glomerular Filtration Rate > 60, Glucose Level 252H, Calcium Level 7.3L, Phosphorus Level 2.2L, Magnesium Level 2.0, Total Bilirubin 0.5, Aspartate Amino Transf (AST/SGOT) 20, Alanine Aminotransferase (ALT/SGPT) 59, Alkaline Phosphatase 56, Total Protein 4.9L, Albumin 1.3L, Globulin 3.6, Albumin/Globulin Ratio 0.4L 06/25/20 08:05: Arterial Blood pH 7.558*H, Arterial Blood Partial Pressure CO2 33.5L, Arterial Blood Partial Pressure O2 87.5, Arterial Blood HCO3 29.2H, Arterial Blood Oxygen Saturation 96.2, Arterial Blood Base Excess 6.6H, Jonathan Test Positive Height (Feet): 5 Height (Inches): 3.00 Weight (Pounds): 172 General Appearance: no apparent distress, lethargic EENT: other - On ventilator Cardiovascular: tachycardia Respiratory/Chest: decreased breath sounds Abdomen: distended Keron Pitt MD Jun 25, 2020 14:46
--- NOTE | 2020-06-25 16:20 | NUR ---
NURSE NOTES: Bed bath given to patient, turned and repositioned. Sacral wound dressing replaced. Rectal tube was found out of place, approximately 100ml of liquid stool was on bed linen. Reinserted rectal tube and it is draining properly.
--- NOTE | 2020-06-25 19:21 | NUR ---
NURSE HAND-OFF REPORT: Latest Vital Signs: Temperature 99.0 , Pulse 65 , B/P 122 /84 , Respiratory Rate 20 , O2 SAT 100 , Mechanical Ventilator, O2 Flow Rate 15.0 . Vital Sign Comment: EKG Rhythm: Sinus Rhythm Rhythm change?: N MD Notified?: - MD Response: Latest Osorio Fall Score: 70 Fall Risk: High Risk Safety Measures: Call light Within Reach, Bed Alarm Zone 1, Side Rails Side Rails x3, Bed position Low and Locked. Fall Precautions: Yellow Socks Door Sign Patient Fall Education Report given to Marci LUJAN.
--- NOTE | 2020-06-25 19:25 | NUR ---
NURSE NOTES: Received pt, with Dx PNA, , a down syndrome, AO x2, SB-SR on the monitor, Bp stable,afebrile. With fio2 85% 02 sat 98%, suctioned lg amt of whitish secretions orally and moderate amt of beige secretions through ETT.Pt was orally intubated on ac mode. Tolerated GT fdg Vital AF at 60ml/hr with acceptable residuals. Rectal tube to gravity with moderate amt of brownish liquid stools. Gregorio to gravity with yellowish urine approx. 50-100ml/hr pt with sacral and perinneal area redness, On [id number].Turned q 2hrs prn with good skin care done. Pt turned only on his back and left side per Dr Preston order due to CXR result. Will continue to monitor.
--- NOTE | 2020-06-25 20:14 | Internal Med Progress Note ---
Subjective Date of Service: Jun 25, 2020 Physician Name Joni Copeland Attending Physician Elayne Allred MD Current Medications Medications (Trade) Dose Ordered Sig/Katy Route PRN Reason Start Time Stop Time Status Last Admin Dose Admin Acetaminophen (Tylenol) 650 mg Q4H PRN GT FEVER 06/03/20 11:45 07/03/20 11:44 06/15/20 03:17 Chlorhexidine Gluconate (Alla-Hex 2%) 1 applic DAILY@1999 TOPIC 06/08/20 20:00 09/06/20 19:59 06/24/20 19:31 Clotrimazole (Lotrimin) 1 applic Q12HR TOPIC 06/07/20 13:00 09/05/20 12:59 06/25/20 08:25 Dextrose (Dextrose 50%) 25 ml Q30M PRN IV Hypoglycemia 06/03/20 11:30 08/28/20 11:29 Dextrose (Dextrose 50%) 50 ml Q30M PRN IV Hypoglycemia 06/03/20 11:30 08/28/20 11:29 Dopamine HCl/ Dextrose 250 ml @ 0 mls/hr Q24H IV 06/12/20 11:15 09/10/20 11:14 06/14/20 19:47 Hydrocortisone (Solu-CORTEF) 100 mg EVERY 8 HOURS IV 06/07/20 14:00 09/05/20 13:59 06/25/20 13:27 Levothyroxine Sodium (Synthroid) 75 mcg DAILY GT 06/04/20 09:00 06/30/20 08:59 06/25/20 08:25 Loperamide HCl (Imodium) 2 mg Q6H PRN NG Diarrhea 06/24/20 10:30 07/24/20 10:29 Midodrine (Pro-Amatine) 10 mg Q8HR GT 06/05/20 14:00 09/03/20 13:59 06/25/20 13:27 Norepinephrine Bitartrate 16 mg/ Dextrose 500 ml @ 0 mls/hr Q24H IV 06/08/20 07:45 07/07/20 12:59 06/12/20 08:43 Ondansetron HCl (Zofran) 4 mg Q6H PRN IVP Nausea & Vomiting 06/03/20 12:00 06/29/20 11:59 Pantoprazole (Protonix) 40 mg DAILY IV 06/04/20 09:00 06/30/20 08:59 06/25/20 08:25 Phenylephrine HCl 50 mg/Dextrose 250 ml @ 0 mls/hr Q24H PRN IV For hypotension 06/06/20 17:45 07/06/20 17:44 06/08/20 01:49 Polyethylene Glycol (Miralax) 17 gm DAILYPRN PRN GT Constipation 06/03/20 12:00 06/29/20 11:59 Valproic Acid (Depakene) 500 mg EVERY 8 HOURS GT 06/03/20 14:00 06/29/20 21:59 06/25/20 13:27 Allergies: Coded Allergies: No Known Allergies (Unverified , 10/16/18) Subjective 59 YO F with Down's syndrome admitted with hypoxia. Now sepsis and pneumonia. Cover for Int Arturo-DR Hawk. ICU. Intubated and sedated Objective Last Vital Signs Date Time Temp Pulse Resp B/P (MAP) Pulse Ox O2 Delivery O2 Flow Rate FiO2 06/25/20 19:15 67 26 85 06/25/20 19:00 122/84 (97) 100 06/25/20 16:00 99.0 06/25/20 16:00 Mechanical Ventilator Mechanical Ventilator Laboratory Tests Test 06/25/20 03:50 06/25/20 08:05 White Blood Count 15.7 K/UL (4.8-10.8) H Red Blood Count 2.45 M/UL (4.20-5.40) L Hemoglobin 8.0 G/DL (12.0-16.0) L Hematocrit 23.9 % (37.0-47.0) L Mean Corpuscular Volume 98 FL (80-99) Mean Corpuscular Hemoglobin 32.8 PG (27.0-31.0) H Mean Corpuscular Hemoglobin Concent 33.6 G/DL (32.0-36.0) Red Cell Distribution Width 14.7 % (11.6-14.8) Platelet Count 126 K/UL (150-450) L Mean Platelet Volume 9.0 FL (6.5-10.1) Neutrophils (%) (Auto) % (45.0-75.0) Lymphocytes (%) (Auto) % (20.0-45.0) Monocytes (%) (Auto) % (1.0-10.0) Eosinophils (%) (Auto) % (0.0-3.0) Basophils (%) (Auto) % (0.0-2.0) Differential Total Cells Counted 100 Neutrophils % (Manual) 94 % (45-75) H Lymphocytes % (Manual) 3 % (20-45) L Monocytes % (Manual) 3 % (1-10) Eosinophils % (Manual) 0 % (0-3) Basophils % (Manual) 0 % (0-2) Band Neutrophils 0 % (0-8) Platelet Estimate Decreased L Platelet Morphology Normal Hypochromasia 2+ Anisocytosis 1+ Sodium Level 149 MMOL/L (136-145) H Potassium Level 2.8 MMOL/L (3.5-5.1) L Chloride Level 114 MMOL/L (98-107) H Carbon Dioxide Level 26 MMOL/L (21-32) Anion Gap 10 mmol/L (5-15) Blood Urea Nitrogen 30 mg/dL (7-18) H Creatinine 0.7 MG/DL (0.55-1.30) Estimat Glomerular Filtration Rate > 60 mL/min (>60) Glucose Level 252 MG/DL (74-106) H Calcium Level 7.3 MG/DL (8.5-10.1) L Phosphorus Level 2.2 MG/DL (2.5-4.9) L Magnesium Level 2.0 MG/DL (1.8-2.4) Total Bilirubin 0.5 MG/DL (0.2-1.0) Aspartate Amino Transf (AST/SGOT) 20 U/L (15-37) Alanine Aminotransferase (ALT/SGPT) 59 U/L (12-78) Alkaline Phosphatase 56 U/L (46-116) Total Protein 4.9 G/DL (6.4-8.2) L Albumin 1.3 G/DL (3.4-5.0) L Globulin 3.6 g/dL Albumin/Globulin Ratio 0.4 (1.0-2.7) L Arterial Blood pH 7.558 (7.350-7.450) Arterial Blood Partial Pressure CO2 33.5 mmHg (35.0-45.0) L Arterial Blood Partial Pressure O2 87.5 mmHg (75.0-100.0) Arterial Blood HCO3 29.2 mmol/L (22.0-26.0) H Arterial Blood Oxygen Saturation 96.2 % (95-100) Arterial Blood Base Excess 6.6 (-2-2) H Jonathan Test Positive Intake and Output 06/24/20 06/25/20 19:00 07:00 Intake Total 1241.6667 ml 880 ml Output Total 845 ml 1000 ml Balance 396.6667 ml -120 ml Free Water 60 ml IV Total 581.6667 ml Tube Feeding 600 ml 720 ml Other 160 ml Output Urine Total 825 ml 1000 ml Stool Total 20 ml 0 ml # Bowel Movements 1 Objective General Appearance: WD/WN, no apparent distress, alert EENT: PERRL/EOMI, normal ENT inspection Neck: non-tender, normal alignment, supple, normal inspection Cardiovascular: normal peripheral pulses, normal rate, regular rhythm, no gallop/murmur, no JVD Respiratory/Chest: Mech vent; decreased breath sounds, crackles/rales, rhonchi - bilaterally, expiratory wheezing Abdomen: normal bowel sounds, non tender, soft, no organomegaly, no mass Extremities: normal range of motion 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 Continue amikacin per ID=Dr Camejo. Pulmonary/Critical care=DR Allred. COVID NEG (2) Sepsis Assessment & Plan: Staph haemolyticus. Continue amikacin per ID=Dr Camejo (3) Down's syndrome (4) Dysphagia Assessment & Plan: S/P PEG (5) Seizure disorder Assessment & Plan: Continue keppra and depakote (6) Hypothyroidism Assessment & Plan: Continue synthroid (7) Acute respiratory failure Assessment & Plan: Pulmonary = Dr Allred; [facility] Joni Copeland MD Jun 25, 2020 20:14
--- NOTE | 2020-06-25 20:38 | Cardiology Progress Note ---
Assessment/Plan Assessment/Plan sepsis respiratory failure ards renal insuf bacteremia abn cardiac enzyme due to demand sinus rafael stable thrombocytopenia resolved hypernatremia vent support abx wbc higher na increased still but i mproved 3rd spacing alot cxr worsse tsh seems fine sig edema with hypernatremia need nauteresis eventually remains off pressor still at this time hr inthe 40's-60's no sig pauses on tele slower heart rate occur during sleep per pattern keeper personally reviewed Subjective ROS Limited/Unobtainable: Yes Subjective on a vent not communicative but look awake Objective Last 24 Hour Vital Signs Date Time Temp Pulse Resp B/P (MAP) Pulse Ox O2 Delivery O2 Flow Rate FiO2 06/25/20 19:15 67 26 85 06/25/20 19:00 65 20 122/84 (97) 100 06/25/20 18:00 66 18 119/69 (86) 100 06/25/20 17:00 58 26 116/54 (74) 97 06/25/20 16:00 74 34 131/74 (93) 96 06/25/20 16:00 85 06/25/20 16:00 99.0 74 34 131/74 (93) 96 06/25/20 16:00 Mechanical Ventilator Mechanical Ventilator 06/25/20 16:00 74 06/25/20 15:30 74 26 85 06/25/20 15:00 62 21 130/62 (84) 99 06/25/20 14:00 61 25 116/70 (85) 99 06/25/20 14:00 61 21 116/70 (85) 98 06/25/20 13:00 50 26 129/58 (81) 98 06/25/20 12:00 Mechanical Ventilator Mechanical Ventilator 06/25/20 12:00 85 06/25/20 12:00 98.7 50 23 143/57 (85) 98 06/25/20 11:39 49 06/25/20 11:00 48 26 121/45 (70) 97 06/25/20 10:43 115/59 06/25/20 10:38 55 26 85 06/25/20 10:00 48 26 115/59 (77) 98 06/25/20 09:00 48 26 131/56 (81) 99 06/25/20 08:07 59 06/25/20 08:00 85 9/17/20 08:00 99.2 66 21 124/81 (95) 97 06/25/20 08:00 Mechanical Ventilator Mechanical Ventilator 06/25/20 07:45 124/81 06/25/20 07:09 50 26 85 06/25/20 07:00 60 24 106/67 (80) 99 06/25/20 06:00 67 21 129/69 (89) 99 06/25/20 05:00 65 22 126/68 (87) 100 06/25/20 04:00 67 06/25/20 04:00 85 06/25/20 04:00 Mechanical Ventilator Mechanical Ventilator 06/25/20 04:00 98.4 67 26 111/77 (88) 100 06/25/20 03:20 78 26 85 06/25/20 03:00 73 20 102/66 (78) 99 06/25/20 02:00 66 24 121/66 (84) 100 06/25/20 01:00 63 21 121/59 (79) 100 06/25/20 00:00 85 06/25/20 00:00 98.4 60 22 116/55 (75) 100 06/25/20 00:00 Mechanical Ventilator Mechanical Ventilator 06/24/20 23:58 59 06/24/20 23:00 65 21 131/77 (95) 100 06/24/20 22:50 48 26 85 06/24/20 22:00 61 22 107/75 (86) 100 06/24/20 21:00 57 23 105/54 (71) 100 General Appearance: no apparent distress, on vent, patient on isolation, isolation precautions Cardiovascular: normal rate Respiratory/Chest: lungs clear Abdomen: normal bowel sounds, non tender, soft Extremities: moderate edema Intake and Output 06/24/20 06/25/20 19:00 07:00 Intake Total 1241.6667 ml 880 ml Output Total 845 ml 1000 ml Balance 396.6667 ml -120 ml Free Water 60 ml IV Total 581.6667 ml Tube Feeding 600 ml 720 ml Other 160 ml Output Urine Total 825 ml 1000 ml Stool Total 20 ml 0 ml # Bowel Movements 1 Laboratory Tests Test 06/25/20 03:50 06/25/20 08:05 White Blood Count 15.7 K/UL (4.8-10.8) H Red Blood Count 2.45 M/UL (4.20-5.40) L Hemoglobin 8.0 G/DL (12.0-16.0) L Hematocrit 23.9 % (37.0-47.0) L Mean Corpuscular Volume 98 FL (80-99) Mean Corpuscular Hemoglobin 32.8 PG (27.0-31.0) H Mean Corpuscular Hemoglobin Concent 33.6 G/DL (32.0-36.0) Red Cell Distribution Width 14.7 % (11.6-14.8) Platelet Count 126 K/UL (150-450) L Mean Platelet Volume 9.0 FL (6.5-10.1) Neutrophils (%) (Auto) % (45.0-75.0) Lymphocytes (%) (Auto) % (20.0-45.0) Monocytes (%) (Auto) % (1.0-10.0) Eosinophils (%) (Auto) % (0.0-3.0) Basophils (%) (Auto) % (0.0-2.0) Differential Total Cells Counted 100 Neutrophils % (Manual) 94 % (45-75) H Lymphocytes % (Manual) 3 % (20-45) L Monocytes % (Manual) 3 % (1-10) Eosinophils % (Manual) 0 % (0-3) Basophils % (Manual) 0 % (0-2) Band Neutrophils 0 % (0-8) Platelet Estimate Decreased L Platelet Morphology Normal Hypochromasia 2+ Anisocytosis 1+ Sodium Level 149 MMOL/L (136-145) H Potassium Level 2.8 MMOL/L (3.5-5.1) L Chloride Level 114 MMOL/L (98-107) H Carbon Dioxide Level 26 MMOL/L (21-32) Anion Gap 10 mmol/L (5-15) Blood Urea Nitrogen 30 mg/dL (7-18) H Creatinine 0.7 MG/DL (0.55-1.30) Estimat Glomerular Filtration Rate > 60 mL/min (>60) Glucose Level 252 MG/DL (74-106) H Calcium Level 7.3 MG/DL (8.5-10.1) L Phosphorus Level 2.2 MG/DL (2.5-4.9) L Magnesium Level 2.0 MG/DL (1.8-2.4) Total Bilirubin 0.5 MG/DL (0.2-1.0) Aspartate Amino Transf (AST/SGOT) 20 U/L (15-37) Alanine Aminotransferase (ALT/SGPT) 59 U/L (12-78) Alkaline Phosphatase 56 U/L (46-116) Total Protein 4.9 G/DL (6.4-8.2) L Albumin 1.3 G/DL (3.4-5.0) L Globulin 3.6 g/dL Albumin/Globulin Ratio 0.4 (1.0-2.7) L Arterial Blood pH 7.558 (7.350-7.450) Arterial Blood Partial Pressure CO2 33.5 mmHg (35.0-45.0) L Arterial Blood Partial Pressure O2 87.5 mmHg (75.0-100.0) Arterial Blood HCO3 29.2 mmol/L (22.0-26.0) H Arterial Blood Oxygen Saturation 96.2 % (95-100) Arterial Blood Base Excess 6.6 (-2-2) H Jonathan Test Positive Josue Pantoja MD Jun 25, 2020 20:38
[2020-06-25] MEDS: Dyna-Hex 2% Top Sol 2oz TOPIC SCH (20:53)
--- NOTE | 2020-06-25 21:30 | NUR ---
NURSE NOTES: Rectal tube accidentally came out, balloon deflated and reinserted.
--- NOTE | 2020-06-25 23:30 | NUR ---
NURSE NOTES: Suctioned tn tk whitish secretions moderate in amt. Turned pt only from back to left side per Dr Chalino tolentino.
[2020-06-26] VITALS (24 sets, daily range): BP systolic 109–153; BP diastolic 49–97
--- NOTE | 2020-06-26 02:30 | NUR ---
NURSE NOTES: Remained on SB-SR bp stable, more awake at this time, afebrile
--- NOTE | 2020-06-26 04:30 | NUR ---
NURSE NOTES: Complete bed bath with bed changed was done.
[2020-06-26 04:55] LABS: HEMATOCRIT 22.4 % (37.0-47.0); HEMOGLOBIN 7.5 G/DL (12.0-16.0); MEAN CORPUSCULAR VOLUME 97 FL (80-99); PLATELET COUNT 116 K/UL (150-450); RED BLOOD COUNT 2.31 M/UL (4.20-5.40); RED CELL DISTRIBUTION WIDTH 15.3 % (11.6-14.8); WHITE BLOOD COUNT 16.2 K/UL (4.8-10.8)
[2020-06-26 05:07] LABS: ALANINE AMINOTRANSFERASE 41 U/L (12-78); ALBUMIN 1.3 G/DL (3.4-5.0); ALBUMIN/GLOBULIN RATIO 0.4 (1.0-2.7); ALKALINE PHOSPHATASE 53 U/L (46-116); ANION GAP 10 mmol/L (5-15); ASPARTATE AMINO TRANSFERASE 16 U/L (15-37); BILIRUBIN,TOTAL 0.5 MG/DL (0.2-1.0); BLOOD UREA NITROGEN 26 mg/dL (7-18); CALCIUM 7.2 MG/DL (8.5-10.1); CARBON DIOXIDE 26 MMOL/L (21-32); CHLORIDE 114 MMOL/L (98-107); CREATININE 0.7 MG/DL (0.55-1.30); PHOSPHORUS 2.4 MG/DL (2.5-4.9); POTASSIUM 3.2 MMOL/L (3.5-5.1); SODIUM 150 MMOL/L (136-145)
[2020-06-26] MEDS: Valproic Acid 250mg/5ml Liquid GT SCH ×3 (05:44→21:30)
[2020-06-26] MEDS: Hydrocortisone 100mg Inj IV SCH ×3 (05:44→21:30)
[2020-06-26] MEDS: Midodrine 10mg tab GT SCH ×3 (05:44→21:30)
--- NOTE | 2020-06-26 07:00 | NUR ---
NURSE NOTES: No resp. distress noted. vss
--- NOTE | 2020-06-26 07:29 | NUR ---
NURSE HAND-OFF REPORT: Latest Vital Signs: Temperature 99.0 , Pulse 61 , B/P 133 /69 , Respiratory Rate 26 , O2 SAT 98 , Mechanical Ventilator, O2 Flow Rate 15.0 . Vital Sign Comment: EKG Rhythm: Sinus Rhythm Rhythm change?: N MD Notified?: - MD Response: Latest Osorio Fall Score: 70 Fall Risk: High Risk Safety Measures: Call light Within Reach, Bed Alarm Zone 1, Side Rails Side Rails x3, Bed position Low and Locked. Fall Precautions: Yellow Socks Door Sign Patient Fall Education Report given to Bree LUJAN.
[2020-06-26] MEDS: Norepinephrine Bitartrate 16 MG in D5W 500ml 484 ML IV SCH (07:41)
--- NOTE | 2020-06-26 07:41 | NUR ---
RD ASSESSMENT & RECOMMENDATIONS SEE CARE ACTIVITY FOR COMPLETE ASSESSMENT DAILY ESTIMATED NEEDS: Needs based on CRITICAL CARE, 50kg 22-28 kcals/kg 9701-4674 total kcals 1.25-2 g protein/kg 63-100 g total protein 25-30 mL/kg 0187-9860 total fluid mLs NUTRITION DIAGNOSIS: Swallowing difficulty r/t dysphagia as evidenced by pt w/ Downs Syndrome, PEG dep for all nutritional needs, now intubated, now off pressor support, ICU status. CURRENT TF:Vital AF 1.2 @ 60ml/hr x 22 hrs ENTERAL NUTRITION RECOMMENDATIONS: VITAL AF 1.2 @ 50ml/hr x22 hrs to provide 1100ml, 1320 kcal, 83g pro, 892ml free H2O - Maintain Vital AF for carb control, critical care, & elemental feeds for diarrhea - LOWER goal rate to 50ml/hr not to exceed est kcal needs, also for improved BG control and help alleviate diarrhea -> will meet 100% est kcal/prot needs - Hold TF 1 hr before and after synthroid meds. - Flush per MD, HOB over 30 degrees. ADDITIONAL RECOMMENDATIONS: 1) Ht of 61 inches per SNF; recalibrate bed scale for accurate CBW 2) Add NISS: BGs now in the 200's, on Solucortef 3) Monitor hemodynamic stability: pressors held at this time 4) Wound healing: Continue Vit C 250mg QD + [place] BID 5) Monitor lytes, replete as needed (low K and phos) 6) Add probiotics for diarrhea .
--- NOTE | 2020-06-26 08:00 | NUR ---
NURSE NOTES: Report received from TAI Covarrubias. Pt lying comfortably in semi-fowlers with no signs of acute distress noted. A+Ox1, with eyes closed, opens eyes to voice and tracks with eyes. Pt nonverbal and does not follow commands. Pt SR on the monitor @ 65. Respirations even and unlabored on mech vent with ETT 7.5, 22 cm @ the lip. Rhonchi heard bilaterally on auscultation. Vent settings AC 26 VT 500, peep of 10, 85% fio2. G-tube noted running feeding @ prescribed rate. Left upper arm PICC running TKO. Patient has sacral and perianal redness with labia swelling, clean and dry. All other vitals stable as documented. Bed at lowest position, brakes engaged, siderails x3, bed alarm on, and call light within reach. Pt at stable condition at this time, will continue to monitor.
[2020-06-26] MEDS: Pantoprazole Inj IV SCH (08:07)
[2020-06-26 08:37] LABS: % IRON SATURATION 22 % (15-50); IRON 28 ug/dL (50-175); TOTAL IRON BINDING CAPACITY 126 ug/dL (250-450)
--- NOTE | 2020-06-26 09:08 | Nephrology Progress Note ---
Assessment/Plan Problem List: (1) LEANN (acute kidney injury) (2) Respiratory failure requiring intubation (3) Down's syndrome (4) Seizure disorder (5) Hypothyroidism Assessment Acute renal failure, likely due to hypotension Acute respiratory distress, hypoxia Seizure disorder Hypothyroidism Down syndrome Full code Fluid challenge with IV fluids and albumin Midodrine for BP above 100 systolic Check TSH level Check Correct level Monitor renal parameters Urine studies Per orders Plan June 26: Day 27 of hospitalization. Full code. Labs reviewed. Hemoglobin down to 7.5. Electrolyte abnormalities addressed and corrections ordered. Continue to monitor renal parameters. Continue per consultants. Start on Levemir for blood sugar management. Questioning continuation of hydrocortisone? June 25: Labs reviewed. Potassium, phosphorus, hemoglobin, are all low. Potassium and phosphorus IV replacement given. Continue to monitor electrolytes and CBC. Patient remains full code. June 24: Lab reviewed. Low phosphorus low magnesium and low potassium was addressed. Hemoglobin drifting lower. Continue per consultants. Patient remains full code. June 23: Labs reviewed. Patient continues to be on ventilator. D5W for high sodium and also potassium chloride intravenously as supplement given. Hem oglobin 8.4. Continue to monitor electrolytes and renal parameters. June 22: Labs reviewed. Low potassium and high sodium noted. Hemoglobin 8.1 stable. Aim to correct abnormal electrolyte. Continue rest. Will give 2 boluses of D5W 500 cc. June 21: Lab reviewed. Abnormal electrolytes noted and addressed. June 20: Labs reviewed. Potassium supplement given. Patient remains full code. Continue per consultants. June 19: Lab reviewed. Electrolyte abnormalities addressed. Continue per pulmonary and ID. June 18: Lab reviewed. Status unchanged. Serum sodium 151 unchanged. Stable from renal standpoint of view. June 17: Labs reviewed. Status quo. D5W 500 cc IV ordered. Continue to monitor renal parameters. June 16: Status quo. Labs reviewed. Overall condition unchanged. Patient was transfused and hemoglobin higher. Continue current management. Patient remains full code. June 15: Status quo. Overall condition poor. Very low albumin. Edematous. Hypotensive. Hemoglobin lower. Anemia work-up ordered. I favor transfusion 2 units of packed RBCs. Patient remains full code. I favor supportive care only. Will discuss. June 14: Electrolyte abnormalities addressed. Serum creatinine lower. Continue per current management. June 13: Status unchanged. Lab reviewed. Serum potassium 2.7. IV potassium chloride ordered. Serum creatinine low at 1.6 stable. Blood pressure 90s systolic June 12: Status quo. Labs reviewed. Renal parameters stable. Serum c reatinine down to 1.6. Medication list reviewed. Continues to be on midodrine. Continue per consultants. June 11: Status quo. Labs reviewed. Electrolytes adjusted. Serum creatinine down to 1.8. Continue per consultants. June 10: Status quo. Labs reviewed. Phosphorus supplement IV given. Serum creatinine 2. Continue per consultants. June 09: Requires less pressors. Albumin bolus given. 1 dose of Lasix IV ordered as the patient severely edematous. Patient serum albumin is very low. Continue per consultants. June 08: Continues to be intubated. Labs reviewed. Serum creatinine 1.9 unchanged. Blood pressure more stable. Off 1 of the pressors. Continue to monitor renal parameters. Continue per consultants. Patient now on hydrocor tisone 100 mg every 8 hours. Will decrease IV fluid. Normal saline down to 50 cc an hour. June 07: Intubated. Labs reviewed. Creatinine 1.9 unchanged. Continue same treatment plan. Per consultants. Overall poor prognosis since the patient remains on pressors and her pulmonary status is worsening. June 06: Remains intubated. Labs reviewed. Creatinine 1.9. Blood pressure systolic 90s. Continue per consultants. June 05: Remains intubated. Labs reviewed. Serum creatinine lower to 2. Vancomycin level lower. Remains hypotensive on pressors. Will increase midodrine to 10 mg every 8 hours. Continue per consultants. Continue to monitor renal parameters. June 04: Patient now in ICU. Intubated. On pressors. Labs reviewed. Will increase midodrine. Aim to keep blood pressure over 100 systolic. Will give albumin bolus. Will check vancomycin level which was elevated when checked previously on June 01. Will monitor renal parameters. Continue per consultants. Subjective ROS Limited/Unobtainable: Yes Objective Objective Last 24 Hour Vital Signs Date Time Temp Pulse Resp B/P (MAP) Pulse Ox O2 Delivery O2 Flow Rate FiO2 06/26/20 08:00 85 06/26/20 07:20 78 26 85 06/26/20 06:00 61 26 133/69 (90) 98 06/26/20 05:00 58 26 143/64 (90) 98 06/26/20 04:00 Mechanical Ventilator Mechanical Ventilator 06/26/20 04:00 99.0 84 21 119/68 (85) 93 06/26/20 04:00 85 06/26/20 04:00 70 06/26/20 03:10 81 26 85 06/26/20 03:00 59 26 130/72 (91) 97 06/26/20 02:00 62 25 133/72 (92) 93 06/26/20 01:00 73 22 128/66 (86) 96 06/26/20 00:00 Mechanical Ventilator Mechanical Ventilator 06/26/20 00:00 75 06/26/20 00:00 99.2 68 23 130/97 (108) 86 06/26/20 00:00 85 06/25/20 23:10 73 26 85 06/25/20 23:00 58 26 125/71 (89) 97 06/25/20 22:00 77 23 123/51 (75) 99 06/25/20 21:00 73 19 108/50 (69) 94 06/25/20 20:00 99.0 68 21 99/51 (67) 98 06/25/20 20:00 85 06/25/20 20:00 Mechanical Ventilator Mechanical Ventilator 06/25/20 19:15 67 26 85 06/25/20 19:00 65 20 122/84 (97) 100 06/25/20 18:00 66 18 119/69 (86) 100 06/25/20 17:00 58 26 116/54 (74) 97 06/25/20 16:00 74 34 131/74 (93) 96 06/25/20 16:00 85 06/25/20 16:00 99.0 74 34 131/74 (93) 96 06/25/20 16:00 Mechanical Ventilator Mechanical Ventilator 06/25/20 16:00 74 06/25/20 15:30 74 26 85 06/25/20 15:00 62 21 130/62 (84) 99 06/25/20 14:00 61 25 116/70 (85) 99 06/25/20 14:00 61 21 116/70 (85) 98 06/25/20 13:00 50 26 129/58 (81) 98 06/25/20 12:00 Mechanical Ventilator Mechanical Ventilator 06/25/20 12:00 85 06/25/20 12:00 98.7 50 23 143/57 (85) 98 06/25/20 11:39 49 06/25/20 11:00 48 26 121/45 (70) 97 06/25/20 10:43 115/59 06/25/20 10:38 55 26 85 06/25/20 10:00 48 26 115/59 (77) 98 Intake and Output 06/25/20 06/26/20 19:00 07:00 Intake Total 1680.000 ml 810 ml Output Total 1035 ml 1080 ml Balance 645.000 ml -270 ml Free Water 90 ml IV Total 960.000 ml Tube Feeding 720 ml 720 ml Output Urine Total 935 ml 800 ml Stool Total 100 ml 280 ml Laboratory Tests 06/26/20 04:10: White Blood Count 16.2H, Red Blood Count 2.31L, Hemoglobin 7.5L, Hematocrit 22.4L, Mean Corpuscular Volume 97, Mean Corpuscular Hemoglobin 32.5H, Mean Corpuscular Hemoglobin Concent 33.5, Red Cell Distribution Width 15.3H, Platelet Count 116L, Mean Platelet Volume 9.6, Neutrophils (%) (Auto) , Lymphocytes (%) (Auto) , Monocytes (%) (Auto) , Eosinophils (%) (Auto) , Basophils (%) (Auto) , Differential Total Cells Counted 100, Neutrophils % (Manual) 94H, Lymphocytes % (Manual) 4L, Monocytes % (Manual) 2, Eosinophils % (Manual) 0, Basophils % (Manual) 0, Band Neutrophils 0, Platelet Estimate DecreasedL, Platelet Morphology Normal, Hypochromasia 1+, Anisocytosis 1+, Erythrocyte Sedimentation Rate 50H, Sodium Level 150H, Potassium Level 3.2L, Chloride Level 114H, Carbon Dioxide Level 26, Anion Gap 10, Blood Urea Nitrogen 26H, Creatinine 0.7, Estimat Glomerular Filtration Rate > 60, Glucose Level 283H, Calcium Level 7.2L, Phosphorus Level 2.4L, Magnesium Level 1.9, Iron Level 28L, Total Iron Binding Capacity 126L, Percent Iron Saturation 22, Unsaturated Iron Binding 98L, Ferritin [Pending], Total Bilirubin 0.5, Aspartate Amino Transf (AST/SGOT) 16, Alanine Aminotransferase (ALT/SGPT) 41, Alkaline Phosphatase 53, C-Reactive Protein, Quantitative 1.9H, Pro-B-Type Natriuretic Peptide 6967H, Total Protein 4.7L, Albumin 1.3L, Globulin 3.4, Albumin/Globulin Ratio 0.4L Height (Feet): 5 Height (Inches): 3.00 Weight (Pounds): 172 General Appearance: no apparent distress Neck: other - On mechanical ventilator Cardiovascular: normal rate Respiratory/Chest: decreased breath sounds Abdomen: distended Keron Pitt MD Jun 26, 2020 09:08
[2020-06-26 09:15] LABS: FERRITIN 369 NG/ML (8-388)
[2020-06-26] MEDS: Potassium Phosphate 15mm/250ml 250 ML IVPB SCH ×2 (09:31→14:05)
--- NOTE | 2020-06-26 10:06 | NUR ---
NURSE NOTES: Pt repositioned, oral care done. Pt pulled up in bed and suctioned.
[2020-06-26] MEDS: Levemir Flexpen SUBQ SCH ×2 (10:36→21:02)
[2020-06-26] MEDS: DOPamine 400mg/250ml 250 ML IV SCH (10:38)
--- NOTE | 2020-06-26 11:40 | Pulmonolgy Critical Care Note ---
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 with: nurses, consultants Critical Care - Objective Last 24 Hour Vital Signs Date Time Temp Pulse Resp B/P (MAP) Pulse Ox O2 Delivery O2 Flow Rate FiO2 06/26/20 11:08 78 26 85 06/26/20 11:00 78 21 125/92 (103) 100 06/26/20 10:00 72 24 132/86 (101) 100 06/26/20 09:00 60 26 131/85 (100) 99 06/26/20 08:00 Mechanical Ventilator Mechanical Ventilator 06/26/20 08:00 58 06/26/20 08:00 85 06/26/20 08:00 99.3 70 22 139/69 (92) 99 06/26/20 07:20 78 26 85 06/26/20 07:00 60 26 144/74 (97) 100 06/26/20 06:00 61 26 133/69 (90) 98 06/26/20 05:00 58 26 143/64 (90) 98 06/26/20 04:00 Mechanical Ventilator Mechanical Ventilator 06/26/20 04:00 99.0 84 21 119/68 (85) 93 06/26/20 04:00 85 06/26/20 04:00 70 06/26/20 03:10 81 26 85 06/26/20 03:00 59 26 130/72 (91) 97 06/26/20 02:00 62 25 133/72 (92) 93 06/26/20 01:00 73 22 128/66 (86) 96 06/26/20 00:00 Mechanical Ventilator Mechanical Ventilator 06/26/20 00:00 75 06/26/20 00:00 99.2 68 23 130/97 (108) 86 06/26/20 00:00 85 06/25/20 23:10 73 26 85 06/25/20 23:00 58 26 125/71 (89) 97 06/25/20 22:00 77 23 123/51 (75) 99 06/25/20 21:00 73 19 108/50 (69) 94 06/25/20 20:00 99.0 68 21 99/51 (67) 98 06/25/20 20:00 85 06/25/20 20:00 Mechanical Ventilator Mechanical Ventilator 06/25/20 19:15 67 26 85 06/25/20 19:00 65 20 122/84 (97) 100 06/25/20 18:00 66 18 119/69 (86) 100 06/25/20 17:00 58 26 116/54 (74) 97 06/25/20 16:00 74 34 131/74 (93) 96 06/25/20 16:00 85 06/25/20 16:00 99.0 74 34 131/74 (93) 96 06/25/20 16:00 Mechanical Ventilator Mechanical Ventilator 06/25/20 16:00 74 06/25/20 15:30 74 26 85 06/25/20 15:00 62 21 130/62 (84) 99 06/25/20 14:00 61 25 116/70 (85) 99 06/25/20 14:00 61 21 116/70 (85) 98 06/25/20 13:00 50 26 129/58 (81) 98 06/25/20 12:00 Mechanical Ventilator Mechanical Ventilator 06/25/20 12:00 85 06/25/20 12:00 98.7 50 23 143/57 (85) 98 Status: awake Condition: critical HEENT: atraumatic Neck: full ROM Lungs: clear Heart: HR/BP stable Abdomen: soft Extremities: no C/C/E Accucheck: 264 Critical Care - Subjective ROS Limited/Unobtainable: Yes Condition: grave EKG Rhythm: Sinus Rhythm FI02: 85 Vent Support Breath Rate: 26 Vent Support Mode: AC Vent Tidal Volume: 500 Sputum Amount: Small PEEP: 10.0 PIP: 35 Tube Feeding Amount: 50 I&O: Intake and Output 06/25/20 06/26/20 19:00 07:00 Intake Total 1680.000 ml 810 ml Output Total 1035 ml 1080 ml Balance 645.000 ml -270 ml Free Water 90 ml IV Total 960.000 ml Tube Feeding 720 ml 720 ml Output Urine Total 935 ml 800 ml Stool Total 100 ml 280 ml CXR: no change ET-Tube: 7.5 ET Position: 22 Labs: Laboratory Tests Test 06/26/20 04:10 White Blood Count 16.2 K/UL (4.8-10.8) H Red Blood Count 2.31 M/UL (4.20-5.40) L Hemoglobin 7.5 G/DL (12.0-16.0) L Hematocrit 22.4 % (37.0-47.0) L Mean Corpuscular Volume 97 FL (80-99) Mean Corpuscular Hemoglobin 32.5 PG (27.0-31.0) H Mean Corpuscular Hemoglobin Concent 33.5 G/DL (32.0-36.0) Red Cell Distribution Width 15.3 % (11.6-14.8) H Platelet Count 116 K/UL (150-450) L Mean Platelet Volume 9.6 FL (6.5-10.1) Neutrophils (%) (Auto) % (45.0-75.0) Lymphocytes (%) (Auto) % (20.0-45.0) Monocytes (%) (Auto) % (1.0-10.0) Eosinophils (%) (Auto) % (0.0-3.0) Basophils (%) (Auto) % (0.0-2.0) Differential Total Cells Counted 100 Neutrophils % (Manual) 94 % (45-75) H Lymphocytes % (Manual) 4 % (20-45) L Monocytes % (Manual) 2 % (1-10) Eosinophils % (Manual) 0 % (0-3) Basophils % (Manual) 0 % (0-2) Band Neutrophils 0 % (0-8) Platelet Estimate Decreased L Platelet Morphology Normal Hypochromasia 1+ Anisocytosis 1+ Erythrocyte Sedimentation Rate 50 MM/HR (0-30) H Sodium Level 150 MMOL/L (136-145) H Potassium Level 3.2 MMOL/L (3.5-5.1) L Chloride Level 114 MMOL/L (98-107) H Carbon Dioxide Level 26 MMOL/L (21-32) Anion Gap 10 mmol/L (5-15) Blood Urea Nitrogen 26 mg/dL (7-18) H Creatinine 0.7 MG/DL (0.55-1.30) Estimat Glomerular Filtration Rate > 60 mL/min (>60) Glucose Level 283 MG/DL (74-106) H Calcium Level 7.2 MG/DL (8.5-10.1) L Phosphorus Level 2.4 MG/DL (2.5-4.9) L Magnesium Level 1.9 MG/DL (1.8-2.4) Iron Level 28 ug/dL (50-175) L Total Iron Binding Capacity 126 ug/dL (250-450) L Percent Iron Saturation 22 % (15-50) Unsaturated Iron Binding 98 ug/dL (112-346) L Ferritin 369 NG/ML (8-388) Total Bilirubin 0.5 MG/DL (0.2-1.0) Aspartate Amino Transf (AST/SGOT) 16 U/L (15-37) Alanine Aminotransferase (ALT/SGPT) 41 U/L (12-78) Alkaline Phosphatase 53 U/L (46-116) C-Reactive Protein, Quantitative 1.9 mg/dL (0.00-0.90) H Pro-B-Type Natriuretic Peptide 6967 pg/mL (0-125) H Total Protein 4.7 G/DL (6.4-8.2) L Albumin 1.3 G/DL (3.4-5.0) L Globulin 3.4 g/dL Albumin/Globulin Ratio 0.4 (1.0-2.7) L Elayne Allred MD Jun 26, 2020 11:40
--- NOTE | 2020-06-26 12:07 | NUR ---
NURSE NOTES: Pt repositioned and suctioned. no acute distress noted.
--- NOTE | 2020-06-26 12:23 | Infectious Diseases Prog Note ---
Assessment/Plan ASSESSMENT: sp code blue 06/03 Septic Shock; SP Fever, recurrent- SP Leukocytosis; persistent/fluctuating -06/17 u/a no pyuria -06/16 Bcx NTD (Picc line) -06/14 Bcx NTD ucx Neg sp cx C. parapsilopsis -06/03 u/a no pyuria Pneumonia.- COVID 19 neg x3 Acute hypoxic resp failure on VM> NRB 15l 100%; hypoxic on ABG> now VDRF 06/03- Fio2 80% >100% 06/05> 60% 06/09 >80% 06/10 >95% 06/18 >90% 06/22 >60% 06/23 -06/22 CXR: Improved aeration of both lungs. -06/13 CXR:Small bilateral pleural effusions with minor edema. Stable edema with mild worsening in the degree of pleural effusion on the right. -06/09 sp cx Neg 06/08 CXR: Extensive bilateral interstitial and airspace disease appears similar to the prior exam. Moderate to large bilateral pleural effusions appear unchanged. 06/05 CXR: Increasing left upper lobe dense consolidation and likely increasing bilateral pleural fluid. Persistent diffuse dense consolidation elsewhere -06/03 sp cx normal resp marie -06/02 CXR: Increased atelectasis of the right lung, since prior exam of 3 days earlier. New or increased right pleural effusion. Increased left basilar consolidation and/or pleural fluid -COVID Rapid PCR neg 05/31, 05/31, 06/03 -05/30 spc x Group G strep -05/30 CXR: Reduced lung volumes. Patchy bilateral predominantly interstitial pulmonary opacities. Could be from edema and/or pneumonia. There is a broader differential. -legionella ag urine, blasto ab, Histo ab, HIV ab screen, FRANCIS, ANCA neg Persistent, high grade bacteremia- -05/30 Bcx 4/4 sets S. haemolyticus; 05/31 Bcx 3/4 S/ epi; 06/04 Bcx 1.4 S. warnerri; 06/06 Bcx Neg -2d echo: no vegetaions seen ua/ wbc 10-15, nit neg, leuk +1; ucx Neg LEANN; -supratherapeutic vanco levels -Seizure disorder. - Hypothyroidism. - Down syndrome. History of PEG tube placement. [place] resident PLAN: Continue to monitor off abx 06/22 SP Meropenem #18, IV AMikacin #7 06/12/20 SP Daptomycin #11 06/10 SP MIcafungin #7, Linezolid #5 06/05 SP Azithromycin #7/7 06/03 SP Ceftriaxone #2 06/02 SP IV Vancomycin #4, Zosyn #4 05/30 SP Cefepime x1, Flagyl x1 - Monitor CBC, BMP. .f/u Repeat cx - COVID neg x3 - Monitor chest x-ray. - Monitor the patient's clinical course and labs. Based on those, we will do further recommendation. -f/u Bcx from picc line, cdiff if diarrhea -f/u Fungitell, asp ag, flow cytometry -Once stable, CT chest/abd/pw/ given persistent leukocytosis -poor prognosis Thank you, Dr. Allred, for allowing me to participate in the care of this patient. I will follow the patient with you at this hospitalization. Discussed with RN Subjective Allergies: Coded Allergies: No Known Allergies (Unverified , 10/16/18) afebrile wbc bt 15-16 Fio2 85% off abx Objective Last 24 Hour Vital Signs Date Time Temp Pulse Resp B/P (MAP) Pulse Ox O2 Delivery O2 Flow Rate FiO2 06/26/20 11:08 78 26 85 06/26/20 11:00 78 21 125/92 (103) 100 06/26/20 10:00 72 24 132/86 (101) 100 06/26/20 09:00 60 26 131/85 (100) 99 06/26/20 08:00 Mechanical Ventilator Mechanical Ventilator 06/26/20 08:00 58 06/26/20 08:00 85 06/26/20 08:00 99.3 70 22 139/69 (92) 99 06/26/20 07:20 78 26 85 06/26/20 07:00 60 26 144/74 (97) 100 06/26/20 06:00 61 26 133/69 (90) 98 06/26/20 05:00 58 26 143/64 (90) 98 06/26/20 04:00 Mechanical Ventilator Mechanical Ventilator 06/26/20 04:00 99.0 84 21 119/68 (85) 93 06/26/20 04:00 85 06/26/20 04:00 70 06/26/20 03:10 81 26 85 06/26/20 03:00 59 26 130/72 (91) 97 06/26/20 02:00 62 25 133/72 (92) 93 06/26/20 01:00 73 22 128/66 (86) 96 06/26/20 00:00 Mechanical Ventilator Mechanical Ventilator 06/26/20 00:00 75 06/26/20 00:00 99.2 68 23 130/97 (108) 86 06/26/20 00:00 85 06/25/20 23:10 73 26 85 06/25/20 23:00 58 26 125/71 (89) 97 06/25/20 22:00 77 23 123/51 (75) 99 06/25/20 21:00 73 19 108/50 (69) 94 06/25/20 20:00 99.0 68 21 99/51 (67) 98 06/25/20 20:00 85 06/25/20 20:00 Mechanical Ventilator Mechanical Ventilator 06/25/20 19:15 67 26 85 06/25/20 19:00 65 20 122/84 (97) 100 06/25/20 18:00 66 18 119/69 (86) 100 06/25/20 17:00 58 26 116/54 (74) 97 06/25/20 16:00 74 34 131/74 (93) 96 06/25/20 16:00 85 06/25/20 16:00 99.0 74 34 131/74 (93) 96 06/25/20 16:00 Mechanical Ventilator Mechanical Ventilator 06/25/20 16:00 74 06/25/20 15:30 74 26 85 06/25/20 15:00 62 21 130/62 (84) 99 06/25/20 14:00 61 25 116/70 (85) 99 06/25/20 14:00 61 21 116/70 (85) 98 06/25/20 13:00 50 26 129/58 (81) 98 Height (Feet): 5 Height (Inches): 3.00 Weight (Pounds): 172 HEENT: No pale conjunctivae. No icterus. ETT in place NECK: No lymphadenopathy. CHEST: Coarse breathing sounds. HEART: S1 and S2. ABDOMEN: Soft. PEG tube in place. EXTREMITIES: No cyanosis at this time . SKIN: no rash Laboratory Tests Test 06/26/20 04:10 White Blood Count 16.2 K/UL (4.8-10.8) H Red Blood Count 2.31 M/UL (4.20-5.40) L Hemoglobin 7.5 G/DL (12.0-16.0) L Hematocrit 22.4 % (37.0-47.0) L Mean Corpuscular Volume 97 FL (80-99) Mean Corpuscular Hemoglobin 32.5 PG (27.0-31.0) H Mean Corpuscular Hemoglobin Concent 33.5 G/DL (32.0-36.0) Red Cell Distribution Width 15.3 % (11.6-14.8) H Platelet Count 116 K/UL (150-450) L Mean Platelet Volume 9.6 FL (6.5-10.1) Neutrophils (%) (Auto) % (45.0-75.0) Lymphocytes (%) (Auto) % (20.0-45.0) Monocytes (%) (Auto) % (1.0-10.0) Eosinophils (%) (Auto) % (0.0-3.0) Basophils (%) (Auto) % (0.0-2.0) Differential Total Cells Counted 100 Neutrophils % (Manual) 94 % (45-75) H Lymphocytes % (Manual) 4 % (20-45) L Monocytes % (Manual) 2 % (1-10) Eosinophils % (Manual) 0 % (0-3) Basophils % (Manual) 0 % (0-2) Band Neutrophils 0 % (0-8) Platelet Estimate Decreased L Platelet Morphology Normal Hypochromasia 1+ Anisocytosis 1+ Erythrocyte Sedimentation Rate 50 MM/HR (0-30) H Sodium Level 150 MMOL/L (136-145) H Potassium Level 3.2 MMOL/L (3.5-5.1) L Chloride Level 114 MMOL/L (98-107) H Carbon Dioxide Level 26 MMOL/L (21-32) Anion Gap 10 mmol/L (5-15) Blood Urea Nitrogen 26 mg/dL (7-18) H Creatinine 0.7 MG/DL (0.55-1.30) Estimat Glomerular Filtration Rate > 60 mL/min (>60) Glucose Level 283 MG/DL (74-106) H Calcium Level 7.2 MG/DL (8.5-10.1) L Phosphorus Level 2.4 MG/DL (2.5-4.9) L Magnesium Level 1.9 MG/DL (1.8-2.4) Iron Level 28 ug/dL (50-175) L Total Iron Binding Capacity 126 ug/dL (250-450) L Percent Iron Saturation 22 % (15-50) Unsaturated Iron Binding 98 ug/dL (112-346) L Ferritin 369 NG/ML (8-388) Total Bilirubin 0.5 MG/DL (0.2-1.0) Aspartate Amino Transf (AST/SGOT) 16 U/L (15-37) Alanine Aminotransferase (ALT/SGPT) 41 U/L (12-78) Alkaline Phosphatase 53 U/L (46-116) C-Reactive Protein, Quantitative 1.9 mg/dL (0.00-0.90) H Pro-B-Type Natriuretic Peptide 6967 pg/mL (0-125) H Total Protein 4.7 G/DL (6.4-8.2) L Albumin 1.3 G/DL (3.4-5.0) L Globulin 3.4 g/dL Albumin/Globulin Ratio 0.4 (1.0-2.7) L Current Medications Medications (Trade) Dose Ordered Sig/Katy Route PRN Reason Start Time Stop Time Status Last Admin Dose Admin Acetaminophen (Tylenol) 650 mg Q4H PRN GT FEVER 06/03/20 11:45 07/03/20 11:44 06/15/20 03:17 Chlorhexidine Gluconate (Alla-Hex 2%) 1 applic DAILY@1999 TOPIC 06/08/20 20:00 09/06/20 19:59 06/25/20 20:53 Clotrimazole (Lotrimin) 1 applic Q12HR TOPIC 06/07/20 13:00 09/05/20 12:59 06/26/20 08:07 Dextrose (Dextrose 50%) 25 ml Q30M PRN IV Hypoglycemia 06/03/20 11:30 08/28/20 11:29 Dextrose (Dextrose 50%) 50 ml Q30M PRN IV Hypoglycemia 06/03/20 11:30 08/28/20 11:29 Dopamine HCl/ Dextrose 250 ml @ 0 mls/hr Q24H IV 06/12/20 11:15 09/10/20 11:14 9/6/20 19:47 Hydrocortisone (Solu-CORTEF) 100 mg EVERY 8 HOURS IV 06/07/20 14:00 09/05/20 13:59 06/26/20 05:44 Insulin Aspart (NovoLOG) Q6HR SUBQ 06/26/20 12:00 09/24/20 11:59 Insulin Detemir (Levemir) 10 units Q12HR SUBQ 06/26/20 10:00 09/24/20 09:59 06/26/20 10:36 Levothyroxine Sodium (Synthroid) 75 mcg DAILY GT 06/04/20 09:00 06/30/20 08:59 06/26/20 08:06 Loperamide HCl (Imodium) 2 mg Q6H PRN NG Diarrhea 06/24/20 10:30 07/24/20 10:29 Midodrine (Pro-Amatine) 10 mg Q8HR GT 06/05/20 14:00 09/03/20 13:59 06/26/20 05:44 Norepinephrine Bitartrate 16 mg/ Dextrose 500 ml @ 0 mls/hr Q24H IV 06/08/20 07:45 07/07/20 12:59 06/12/20 08:43 Ondansetron HCl (Zofran) 4 mg Q6H PRN IVP Nausea & Vomiting 06/03/20 12:00 06/29/20 11:59 Pantoprazole (Protonix) 40 mg DAILY IV 06/04/20 09:00 06/30/20 08:59 06/26/20 08:07 Phenylephrine HCl 50 mg/Dextrose 250 ml @ 0 mls/hr Q24H PRN IV For hypotension 06/06/20 17:45 07/06/20 17:44 06/08/20 01:49 Polyethylene Glycol (Miralax) 17 gm DAILYPRN PRN GT Constipation 06/03/20 12:00 06/29/20 11:59 Potassium Phosphate 250 ml @ 62.5 mls/hr Q4H IVPB 06/26/20 09:00 06/26/20 16:59 06/26/20 09:31 Valproic Acid (Depakene) 500 mg EVERY 8 HOURS GT 06/03/20 14:00 06/29/20 21:59 06/26/20 05:44 Suki Camejo M.D. Jun 26, 2020 12:23
[2020-06-26] MEDS: NovoLOG Insulin Flexpen SUBQ SCH ×3 (12:32→23:43)
--- NOTE | 2020-06-26 12:46 | General Progress Note ---
Subjective ROS Limited/Unobtainable: No Allergies: Coded Allergies: No Known Allergies (Unverified , 10/16/18) Objective Last 24 Hour Vital Signs Date Time Temp Pulse Resp B/P (MAP) Pulse Ox O2 Delivery O2 Flow Rate FiO2 06/26/20 11:08 78 26 85 06/26/20 11:00 78 21 125/92 (103) 100 06/26/20 10:00 72 24 132/86 (101) 100 06/26/20 09:00 60 26 131/85 (100) 99 06/26/20 08:00 Mechanical Ventilator Mechanical Ventilator 06/26/20 08:00 58 06/26/20 08:00 85 06/26/20 08:00 99.3 70 22 139/69 (92) 99 06/26/20 07:20 78 26 85 06/26/20 07:00 60 26 144/74 (97) 100 06/26/20 06:00 61 26 133/69 (90) 98 06/26/20 05:00 58 26 143/64 (90) 98 06/26/20 04:00 Mechanical Ventilator Mechanical Ventilator 06/26/20 04:00 99.0 84 21 119/68 (85) 93 06/26/20 04:00 85 06/26/20 04:00 70 06/26/20 03:10 81 26 85 06/26/20 03:00 59 26 130/72 (91) 97 06/26/20 02:00 62 25 133/72 (92) 93 06/26/20 01:00 73 22 128/66 (86) 96 06/26/20 00:00 Mechanical Ventilator Mechanical Ventilator 06/26/20 00:00 75 06/26/20 00:00 99.2 68 23 130/97 (108) 86 06/26/20 00:00 85 06/25/20 23:10 73 26 85 06/25/20 23:00 58 26 125/71 (89) 97 06/25/20 22:00 77 23 123/51 (75) 99 06/25/20 21:00 73 19 108/50 (69) 94 06/25/20 20:00 99.0 68 21 99/51 (67) 98 06/25/20 20:00 85 06/25/20 20:00 Mechanical Ventilator Mechanical Ventilator 06/25/20 19:15 67 26 85 06/25/20 19:00 65 20 122/84 (97) 100 06/25/20 18:00 66 18 119/69 (86) 100 06/25/20 17:00 58 26 116/54 (74) 97 06/25/20 16:00 74 34 131/74 (93) 96 06/25/20 16:00 85 06/25/20 16:00 99.0 74 34 131/74 (93) 96 06/25/20 16:00 Mechanical Ventilator Mechanical Ventilator 06/25/20 16:00 74 06/25/20 15:30 74 26 85 06/25/20 15:00 62 21 130/62 (84) 99 06/25/20 14:00 61 25 116/70 (85) 99 06/25/20 14:00 61 21 116/70 (85) 98 06/25/20 13:00 50 26 129/58 (81) 98 Intake and Output 06/25/20 06/26/20 19:00 07:00 Intake Total 1680.000 ml 810 ml Output Total 1035 ml 1080 ml Balance 645.000 ml -270 ml Free Water 90 ml IV Total 960.000 ml Tube Feeding 720 ml 720 ml Output Urine Total 935 ml 800 ml Stool Total 100 ml 280 ml Laboratory Tests 06/26/20 04:10: White Blood Count 16.2H, Red Blood Count 2.31L, Hemoglobin 7.5L, Hematocrit 22.4 L, Mean Corpuscular Volume 97, Mean Corpuscular Hemoglobin 32.5H, Mean Corpuscular Hemoglobin Concent 33.5, Red Cell Distribution Width 15.3H, Platelet Count 116L, Mean Platelet Volume 9.6, Neutrophils (%) (Auto) , Lymphocytes (%) (Auto) , Monocytes (%) (Auto) , Eosinophils (%) (Auto) , Basophils (%) (Auto) , Differential Total Cells Counted 100, Neutrophils % (Manual) 94H, Lymphocytes % (Manual) 4L, Monocytes % (Manual) 2, Eosinophils % (Manual) 0, Basophils % (Manual) 0, Band Neutrophils 0, Platelet Estimate DecreasedL, Platelet Morphology Normal, Hypochromasia 1+, Anisocytosis 1+, Erythrocyte Sedimentation Rate 50H, Sodium Level 150H, Potassium Level 3.2L, Chloride Level 114H, Carbon Dioxide Level 26, Anion Gap 10, Blood Urea Nitrogen 26H, Creatinine 0.7, Estimat Glomerular Filtration Rate > 60, Glucose Level 283H, Calcium Level 7.2L, Phosphorus Level 2.4L, Magnesium Level 1.9, Iron Level 28L, Total Iron Binding Capacity 126L, Percent Iron Saturation 22, Unsaturated Iron Binding 98L, Ferritin 369, Total Bilirubin 0.5, Aspartate Amino Transf (AST/SGOT) 16, Alanine Aminotransferase (ALT/SGPT) 41, Alkaline Phosphatase 53, C-Reactive Protein, Quantitative 1.9H, Pro-B-Type Natriuretic Peptide 6967H, Total Protein 4.7L, Albumin 1.3L, Globulin 3.4, Albumin/Globulin Ratio 0.4L Height (Feet): 5 Height (Inches): 3.00 Weight (Pounds): 172 General Appearance: no apparent distress EENT: normal ENT inspection Neck: supple Cardiovascular: normal rate Respiratory/Chest: decreased breath sounds Abdomen: hypoactive bowel sounds Extremities: non-tender, swelling Assessment/Plan Assessment/Plan: 1. History of Down syndrome. 2. Dysphagia with G-tube. 3. Seizure disorder. 4. Hypothyroidism. 5. LEANN. 6. Pneumonia. 7. Sepsis. fu H&H ppi GTF hold GI procedures for now check C.diff stool ob + 1/2 Nehemiah Perez MD Jun 26, 2020 12:46
[2020-06-26] MEDS: Acetaminophen 650mg/20.3ml GT PRN (12:48)
--- NOTE | 2020-06-26 13:06 | NUR ---
NURSE NOTES: Previous bag not finished of potassium phosphate. Spoke with pharmacist who said okay to give late when 1st bag finished.
--- NOTE | 2020-06-26 13:30 | NUR ---
NURSE NOTES: pt still febrile after tylenol administration. Cooling measures placed.
--- NOTE | 2020-06-26 15:52 | NUR ---
CASE MANAGEMENT: REVIEW 06/26/2020 SI:SEPSIS. PNA. HX: DOWN SYNDROME 100.3 64 26 115/49 98% ON MECH VENT ET FIO2 85 WBC 16.3 H/H 7.5/22.4 PLT 116 NA+150 K+3.2 CL-114 BUN 26 BG 283 CA+7.2 PHOS 2.4 BNP 6967 ALB 1.3 IS:IV KPHOS/NS BOLUS X2 PRO-AMATINE GT TID DEPAKENE GT TID LEVEMIR SQ BID IV PROTONIX QD LOTRIMIN TP BID CHEST X-RAY- Extensive interstitial and bilateral alveolar opacities, with interval worsening of aeration of the left mid and upper lung compared to the prior exam.Endotracheal tube and left arm PICC line remain in place. ICU PLAN OF CARE: PLACE RECTAL TUBE ADJUST FiO2 CONT REPARATORY CARE ~WEAN CONSERVATOR TO TRACH PLACEMENT
--- NOTE | 2020-06-26 17:45 | NUR ---
NURSE NOTES: Rectal tube in place with no leakage. Bed bath given and linen changed. Pt repositioned and suctioned
--- NOTE | 2020-06-26 18:14 | Internal Med Progress Note ---
Subjective Physician Name Guillaume Hawk Attending Physician Elayne Allred MD Current Medications Medications (Trade) Dose Ordered Sig/Katy Route PRN Reason Start Time Stop Time Status Last Admin Dose Admin Acetaminophen (Tylenol) 650 mg Q4H PRN GT FEVER 06/03/20 11:45 07/03/20 11:44 06/26/20 12:48 Chlorhexidine Gluconate (Alla-Hex 2%) 1 applic DAILY@2000 TOPIC 06/08/20 20:00 09/06/20 19:59 06/25/20 20:53 Clotrimazole (Lotrimin) 1 applic Q12HR TOPIC 06/07/20 13:00 09/05/20 12:59 06/26/20 08:07 Dextrose (Dextrose 50%) 25 ml Q30M PRN IV Hypoglycemia 06/03/20 11:30 08/28/20 11:29 Dextrose (Dextrose 50%) 50 ml Q30M PRN IV Hypoglycemia 06/03/20 11:30 08/28/20 11:29 Dopamine HCl/ Dextrose 250 ml @ 0 mls/hr Q24H IV 06/12/20 11:15 09/10/20 11:14 06/14/20 19:47 Hydrocortisone (Solu-CORTEF) 100 mg EVERY 8 HOURS IV 06/07/20 14:00 09/05/20 13:59 06/26/20 14:05 Insulin Aspart (NovoLOG) Q6HR SUBQ 06/26/20 12:00 09/24/20 11:59 06/26/20 17:23 Insulin Detemir (Levemir) 10 units Q12HR SUBQ 06/26/20 10:00 09/24/20 09:59 06/26/20 10:36 Levothyroxine Sodium (Synthroid) 75 mcg DAILY GT 06/04/20 09:00 06/30/20 08:59 06/26/20 08:06 Loperamide HCl (Imodium) 2 mg Q6H PRN NG Diarrhea 06/24/20 10:30 07/24/20 10:29 Midodrine (Pro-Amatine) 10 mg Q8HR GT 06/05/20 14:00 09/03/20 13:59 06/26/20 14:05 Norepinephrine Bitartrate 16 mg/ Dextrose 500 ml @ 0 mls/hr Q24H IV 06/08/20 07:45 07/07/20 12:59 06/12/20 08:43 Ondansetron HCl (Zofran) 4 mg Q6H PRN IVP Nausea & Vomiting 06/03/20 12:00 06/29/20 11:59 Pantoprazole (Protonix) 40 mg DAILY IV 06/04/20 09:00 06/30/20 08:59 06/26/20 08:07 Phenylephrine HCl 50 mg/Dextrose 250 ml @ 0 mls/hr Q24H PRN IV For hypotension 06/06/20 17:45 07/06/20 17:44 06/08/20 01:49 Polyethylene Glycol (Miralax) 17 gm DAILYPRN PRN GT Constipation 06/03/20 12:00 06/29/20 11:59 Valproic Acid (Depakene) 500 mg EVERY 8 HOURS GT 06/03/20 14:00 06/29/20 21:59 06/26/20 14:05 Allergies: Coded Allergies: No Known Allergies (Unverified , 10/16/18) Subjective in ICU, remained intubated on the vent, unable to follow command. WBC: 16.2, K: 3.2 Objective Last Vital Signs Date Time Temp Pulse Resp B/P (MAP) Pulse Ox O2 Delivery O2 Flow Rate FiO2 06/26/20 17:00 61 26 126/54 (78) 100 06/26/20 16:00 85 06/26/20 16:00 100.0 06/26/20 16:00 Mechanical Ventilator Mechanical Ventilator Laboratory Tests Test 06/26/20 04:10 White Blood Count 16.2 K/UL (4.8-10.8) H Red Blood Count 2.31 M/UL (4.20-5.40) L Hemoglobin 7.5 G/DL (12.0-16.0) L Hematocrit 22.4 % (37.0-47.0) L Mean Corpuscular Volume 97 FL (80-99) Mean Corpuscular Hemoglobin 32.5 PG (27.0-31.0) H Mean Corpuscular Hemoglobin Concent 33.5 G/DL (32.0-36.0) Red Cell Distribution Width 15.3 % (11.6-14.8) H Platelet Count 116 K/UL (150-450) L Mean Platelet Volume 9.6 FL (6.5-10.1) Neutrophils (%) (Auto) % (45.0-75.0) Lymphocytes (%) (Auto) % (20.0-45.0) Monocytes (%) (Auto) % (1.0-10.0) Eosinophils (%) (Auto) % (0.0-3.0) Basophils (%) (Auto) % (0.0-2.0) Differential Total Cells Counted 100 Neutrophils % (Manual) 94 % (45-75) H Lymphocytes % (Manual) 4 % (20-45) L Monocytes % (Manual) 2 % (1-10) Eosinophils % (Manual) 0 % (0-3) Basophils % (Manual) 0 % (0-2) Band Neutrophils 0 % (0-8) Platelet Estimate Decreased L Platelet Morphology Normal Hypochromasia 1+ Anisocytosis 1+ Erythrocyte Sedimentation Rate 50 MM/HR (0-30) H Sodium Level 150 MMOL/L (136-145) H Potassium Level 3.2 MMOL/L (3.5-5.1) L Chloride Level 114 MMOL/L (98-107) H Carbon Dioxide Level 26 MMOL/L (21-32) Anion Gap 10 mmol/L (5-15) Blood Urea Nitrogen 26 mg/dL (7-18) H Creatinine 0.7 MG/DL (0.55-1.30) Estimat Glomerular Filtration Rate > 60 mL/min (>60) Glucose Level 283 MG/DL (74-106) H Calcium Level 7.2 MG/DL (8.5-10.1) L Phosphorus Level 2.4 MG/DL (2.5-4.9) L Magnesium Level 1.9 MG/DL (1.8-2.4) Iron Level 28 ug/dL (50-175) L Total Iron Binding Capacity 126 ug/dL (250-450) L Percent Iron Saturation 22 % (15-50) Unsaturated Iron Binding 98 ug/dL (112-346) L Ferritin 369 NG/ML (8-388) Total Bilirubin 0.5 MG/DL (0.2-1.0) Aspartate Amino Transf (AST/SGOT) 16 U/L (15-37) Alanine Aminotransferase (ALT/SGPT) 41 U/L (12-78) Alkaline Phosphatase 53 U/L (46-116) C-Reactive Protein, Quantitative 1.9 mg/dL (0.00-0.90) H Pro-B-Type Natriuretic Peptide 6967 pg/mL (0-125) H Total Protein 4.7 G/DL (6.4-8.2) L Albumin 1.3 G/DL (3.4-5.0) L Globulin 3.4 g/dL Albumin/Globulin Ratio 0.4 (1.0-2.7) L Intake and Output 06/25/20 06/26/20 19:00 07:00 Intake Total 1680.000 ml 810 ml Output Total 1035 ml 1080 ml Balance 645.000 ml -270 ml Free Water 90 ml IV Total 960.000 ml Tube Feeding 720 ml 720 ml Output Urine Total 935 ml 800 ml Stool Total 100 ml 280 ml Objective General: remain intubated, unable to follow command, open eyes with deep stimuli. HEENT: NCAT, sclera anicteric, PERRL, ET Tube. Neck: Supple, no significant jugular venous distention, Lungs: mechanical breath sounds decreased air at the bases, no Wheeze or Rales. Heart: Regular rate and rhythm, normal S1/S2, no murmurs/gallops Abdomen: soft, not tender, not distended. + bowel sounds, Morbid Obesity, PEG site intact. Extremities: No Cyanosis , clubbing, resolving upper extremities edema. left upper extremity PICC line. Neuro: limited secondary to patient status, unable to follow command, bilateral upper and lower extremities contracted. Assessment/Plan Assessment/Plan Problem List: (1) HCAP (healthcare-associated pneumonia) (2) Sepsis (3) Down's syndrome (4) Dysphagia S/P PEG (5) Seizure disorder (6) Hypothyroidism (7) Acute Hypoxemic respiratory failure (8) Persistent, high grade bacteremia- r/o endocarditis (9) LEANN Plan: Tolerated tube feeding @ 50 cc/hr Follow-up with laboratory and cultures Hydrocortisone 100 mg IV every 8 Continue to monitor off abx Kcl supplements Poor prognosis Guillaume Hawk MD Jun 26, 2020 18:14
--- NOTE | 2020-06-26 19:06 | NUR ---
NURSE HAND-OFF REPORT: Latest Vital Signs: Temperature 100.0 , Pulse 71 , B/P 129 /61 , Respiratory Rate 26 , O2 SAT 99 , Mechanical Ventilator, O2 Flow Rate 15.0 . Vital Sign Comment: EKG Rhythm: Sinus Rhythm Rhythm change?: N MD Notified?: - MD Response: Latest Osorio Fall Score: 70 Fall Risk: High Risk Safety Measures: Call light Within Reach, Bed Alarm Zone 1, Side Rails Side Rails x3, Bed position Low and Locked. Fall Precautions: Yellow Socks Door Sign Patient Fall Education Report given to TAI Galvan.
--- NOTE | 2020-06-26 19:50 | NUR ---
NURSE NOTES: PATIENT AWOKE, OPEN EYES, ABLE TO EYE CONTACT BUT DID NOT FOLLOW COMMANDS, ON ETT TO VENT, AC 26/TV 500/FIO2 85%/PEEP 10, O2 SATURATION 98% NOTED, HR 60'S/MIN, SR NOTED, G TUBE INTACT AND PATENT, ONGOING VITAL AF 1.2 AT 50ML/HR, NO RESIDUE NOTED, KEPT HOB OVER 30 DEGREES, ASPIRATION AND SZ PRECAUTION, ABDOMEN SOFT, NON TENDER, RECTAL TUBE INTACT AND PATENT, BROWN COLOR STOOL OUTED, F/C INTACT AND PATENT, HARISH COLOR URINE OUTED, PICC LINE TO LEFT UPPER ARM, INTACT AND PATENT, ON P200 BED, MADE LOWER BED POSITION, ON BED ALARM AND LOCKED, PLACE CALL LIGHT WITHIN REACH, WILL CONTINUE TO MONITOR.
[2020-06-26] MEDS: Dyna-Hex 2% Top Sol 2oz TOPIC SCH (19:51)
--- NOTE | 2020-06-26 20:00 | NUR ---
NURSE NOTES: TEMP 100.5F, APPLIED COOLING MEASURE, WILL CONTINUE TO MONITOR.
[2020-06-26] MEDS ORDERED: Tubing IV Secondary IV ONE (20:03)
--- NOTE | 2020-06-26 22:10 | NUR ---
NURSE NOTES: PATIENT ASLEEP STATUS, NO PAIN OR DISTRESS NOTED, WILL CONTINUE TO MONITOR.
[2020-06-27] VITALS (24 sets, daily range): BP systolic 98–157; BP diastolic 53–84
--- NOTE | 2020-06-27 00:05 | NUR ---
NURSE NOTES: PATIENT ASLEEP STATUS, REPOSITIONED, ORAL CARE WAS DONE, WILL CONTINUE TO MONITOR.
--- NOTE | 2020-06-27 02:30 | NUR ---
NURSE NOTES: PATIENT AWOKE, NO ACUTE DISTRESS NOTED AT THIS TIME, WILL CONTINUE PLAN OF CARE.
--- NOTE | 2020-06-27 04:53 | NUR ---
NURSE NOTES: MORNING CARE AND ORAL CARE WAS DONE.
[2020-06-27] MEDS: Valproic Acid 250mg/5ml Liquid GT SCH ×3 (05:33→20:56)
[2020-06-27] MEDS: Hydrocortisone 100mg Inj IV SCH ×3 (05:33→20:57)
[2020-06-27] MEDS: Midodrine 10mg tab GT SCH ×3 (05:33→20:56)
[2020-06-27] MEDS: NovoLOG Insulin Flexpen SUBQ SCH ×3 (05:34→18:15)
[2020-06-27 05:48] LABS: HEMATOCRIT 21.3 % (37.0-47.0); HEMOGLOBIN 7.1 G/DL (12.0-16.0); MEAN CORPUSCULAR VOLUME 98 FL (80-99); PLATELET COUNT 101 K/UL (150-450); RED BLOOD COUNT 2.18 M/UL (4.20-5.40); RED CELL DISTRIBUTION WIDTH 15.9 % (11.6-14.8); WHITE BLOOD COUNT 14.1 K/UL (4.8-10.8)
[2020-06-27 06:20] LABS: ALANINE AMINOTRANSFERASE 36 U/L (12-78); ALBUMIN 1.3 G/DL (3.4-5.0); ALBUMIN/GLOBULIN RATIO 0.4 (1.0-2.7); ALKALINE PHOSPHATASE 46 U/L (46-116); ANION GAP 8 mmol/L (5-15); ASPARTATE AMINO TRANSFERASE 18 U/L (15-37); BILIRUBIN,TOTAL 0.4 MG/DL (0.2-1.0); BLOOD UREA NITROGEN 24 mg/dL (7-18); CALCIUM 7.2 MG/DL (8.5-10.1); CARBON DIOXIDE 29 MMOL/L (21-32); CHLORIDE 116 MMOL/L (98-107); CREATININE 0.7 MG/DL (0.55-1.30); PHOSPHORUS 2.4 MG/DL (2.5-4.9); SODIUM 154 MMOL/L (136-145)
--- NOTE | 2020-06-27 06:27 | NUR ---
NURSE NOTES: PATIENT ASLEEP STATUS, HR 46/MIN SB NOTED AT THIS TIME, WILL CONTINUE TO MONITOR.
[2020-06-27 06:35] LABS: POTASSIUM 2.5 MMOL/L (3.5-5.1)
--- NOTE | 2020-06-27 06:56 | NUR ---
NURSE NOTES: CALLED DR. DIETZ REGARDING POTASSIUM LEVEL 2.5 THAT LEFT MESSAGE AWAIT CALL AT [id number].
--- NOTE | 2020-06-27 07:02 | NUR ---
NURSE HAND-OFF REPORT: Latest Vital Signs: Temperature 98.3 , Pulse 51 , B/P 108 /59 , Respiratory Rate 26 , O2 SAT 99 , Mechanical Ventilator, O2 Flow Rate 15.0 . Vital Sign Comment: EKG Rhythm: Sinus Bradycardia Rhythm change?: N MD Notified?: - MD Response: Latest Osorio Fall Score: 70 Fall Risk: High Risk Safety Measures: Call light Within Reach, Bed Alarm Zone 1, Side Rails Side Rails x3, Bed position Low and Locked. Fall Precautions: Yellow Socks Door Sign Patient Fall Education Report given to TAI DE LEON.
--- NOTE | 2020-06-27 07:03 | NUR ---
NURSE NOTES: Received patient from Cole RN. Patient is awake, alert and oriented x2. Sinus Bradycardia on the heart monitor, HR 48. Receiving oxygen via ET Tube 7.5 22cm at the lip line, vent settings: AC 26, TV 500, FiO2 85%, PEEP 10. IV site is Left Upper Arm PICC patent and intact. G-tube is intact and receiving Vital AF at 50cc/hr. Gregorio catheter is intact and draining, rectal tube is also intact and draining. Bed is locked, placed in lowest position, side rails up x3, bed alarm on, head of bed elevated, call light within reach. Will continue to monitor.
[2020-06-27] MEDS: Norepinephrine Bitartrate 16 MG in D5W 500ml 484 ML IV SCH (07:43)
--- NOTE | 2020-06-27 07:50 | NUR ---
NURSE NOTES: Patient seen and assessed by Dr. Allred.
[2020-06-27] MEDS: Pantoprazole Inj IV SCH (08:05)
[2020-06-27] MEDS: Levemir Flexpen SUBQ SCH ×2 (08:07→21:04)
--- NOTE | 2020-06-27 08:13 | Pulmonolgy Critical Care Note ---
Critical Care - Asmt/Plan Problems: (1) Acute respiratory failure (2) Bacteremia (3) Pneumonia (4) Sepsis (5) HCAP (healthcare-associated pneumonia) (6) Seizure disorder (7) Down's syndrome Respiratory: monitor respiratory rate, adjust FIO2, CXR Cardiac: continue to monitor HR/BP Renal: F/U I&O, keep IV fluid, check electrolytes Infectious Disease: check cultures, continue antibiotics Gastrointestinal: continue feedings/current rate Endocrine: monitor blood sugar Hematologic: monitor H/H, transfuse if hgb<8.5 Neurologic: PRN Ativan, keep patient comfortable Affect: PRN ativan Prophylaxis: Protonix Disposition: keep in ICU 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, 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, 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, ID Critical Care - Objective Last 24 Hour Vital Signs Date Time Temp Pulse Resp B/P (MAP) Pulse Ox O2 Delivery O2 Flow Rate FiO2 06/27/20 07:43 149/60 06/27/20 07:00 49 18 149/60 (89) 97 06/27/20 06:47 51 26 85 06/27/20 06:00 48 26 108/59 (75) 99 06/27/20 05:00 46 26 115/64 (81) 99 06/27/20 04:00 98.3 46 26 116/60 (78) 100 06/27/20 04:00 Mechanical Ventilator Mechanical Ventilator 06/27/20 04:00 85 06/27/20 03:00 59 23 123/67 (85) 100 06/27/20 02:30 78 26 85 06/27/20 02:00 68 23 132/76 (94) 99 06/27/20 01:00 67 23 138/64 (88) 100 06/27/20 00:07 57 06/27/20 00:00 85 06/27/20 00:00 97.5 58 12 130/62 (84) 97 06/27/20 00:00 Mechanical Ventilator Mechanical Ventilator 06/26/20 23:10 65 26 85 06/26/20 23:00 64 26 153/63 (93) 99 06/26/20 22:00 61 26 119/58 (78) 99 06/26/20 21:00 80 25 139/55 (83) 100 06/26/20 20:00 100.1 72 25 124/57 (79) 100 06/26/20 20:00 72 06/26/20 20:00 85 06/26/20 20:00 Mechanical Ventilator Mechanical Ventilator 06/26/20 19:35 89 26 85 06/26/20 19:00 70 25 129/63 (85) 99 06/26/20 18:00 71 26 129/61 (83) 99 06/26/20 17:00 61 26 126/54 (78) 100 06/26/20 16:00 85 06/26/20 16:00 100.0 69 26 133/55 (81) 100 06/26/20 16:00 66 06/26/20 16:00 Mechanical Ventilator Mechanical Ventilator 06/26/20 15:41 63 26 85 06/26/20 15:00 64 26 113/51 (71) 100 06/26/20 14:00 93 30 109/88 (95) 99 06/26/20 13:18 100.3 06/26/20 13:00 96 24 130/60 (83) 98 06/26/20 12:00 72 06/26/20 12:00 85 06/26/20 12:00 100.3 64 26 115/49 (71) 98 06/26/20 12:00 Mechanical Ventilator Mechanical Ventilator 06/26/20 11:08 78 26 85 06/26/20 11:00 78 21 125/92 (103) 100 06/26/20 10:00 72 24 132/86 (101) 100 06/26/20 09:00 60 26 131/85 (100) 99 Status: awake Condition: critical HEENT: atraumatic, normocephalic Neck: full ROM Lungs: clear, chest wall tender Heart: HR/BP stable Abdomen: soft, non-tender Extremities: no C/C/E Accucheck: 163 Critical Care - Subjective ROS Limited/Unobtainable: Yes Condition: critical EKG Rhythm: Sinus Rhythm FI02: 85 Vent Support Breath Rate: 26 Vent Support Mode: AC Vent Tidal Volume: 500 Sputum Amount: Small PEEP: 10.0 PIP: 37 Tube Feeding Amount: 50 I&O: Intake and Output 06/26/20 06/27/20 19:00 07:00 Intake Total 1120 ml 800 ml Output Total 1030 ml 1100 ml Balance 90 ml -300 ml IV Total 500 ml Tube Feeding 620 ml 600 ml Other 200 ml Output Urine Total 980 ml 1050 ml Stool Total 50 ml 50 ml ET-Tube: 7.5 ET Position: 22 Labs: Laboratory Tests Test 06/26/20 20:22 06/27/20 04:25 POC Whole Blood Glucose 236 MG/DL (74-106) H White Blood Count 14.1 K/UL (4.8-10.8) H Red Blood Count 2.18 M/UL (4.20-5.40) L Hemoglobin 7.1 G/DL (12.0-16.0) L Hematocrit 21.3 % (37.0-47.0) L Mean Corpuscular Volume 98 FL (80-99) Mean Corpuscular Hemoglobin 32.7 PG (27.0-31.0) H Mean Corpuscular Hemoglobin Concent 33.5 G/DL (32.0-36.0) Red Cell Distribution Width 15.9 % (11.6-14.8) H Platelet Count 101 K/UL (150-450) L Mean Platelet Volume 8.5 FL (6.5-10.1) Neutrophils (%) (Auto) % (45.0-75.0) Lymphocytes (%) (Auto) % (20.0-45.0) Monocytes (%) (Auto) % (1.0-10.0) Eosinophils (%) (Auto) % (0.0-3.0) Basophils (%) (Auto) % (0.0-2.0) Neutrophils % (Manual) Pending Lymphocytes % (Manual) Pending Platelet Estimate Pending Platelet Morphology Pending Sodium Level 154 MMOL/L (136-145) H Potassium Level 2.5 MMOL/L (3.5-5.1) *L Chloride Level 116 MMOL/L (98-107) H Carbon Dioxide Level 29 MMOL/L (21-32) Anion Gap 8 mmol/L (5-15) Blood Urea Nitrogen 24 mg/dL (7-18) H Creatinine 0.7 MG/DL (0.55-1.30) Estimat Glomerular Filtration Rate > 60 mL/min (>60) Glucose Level 171 MG/DL (74-106) #H Calcium Level 7.2 MG/DL (8.5-10.1) L Phosphorus Level 2.4 MG/DL (2.5-4.9) L Magnesium Level 1.9 MG/DL (1.8-2.4) Total Bilirubin 0.4 MG/DL (0.2-1.0) Aspartate Amino Transf (AST/SGOT) 18 U/L (15-37) Alanine Aminotransferase (ALT/SGPT) 36 U/L (12-78) Alkaline Phosphatase 46 U/L (46-116) C-Reactive Protein, Quantitative 1.5 mg/dL (0.00-0.90) H Pro-B-Type Natriuretic Peptide 45762 pg/mL (0-125) H Total Protein 4.6 G/DL (6.4-8.2) L Albumin 1.3 G/DL (3.4-5.0) L Globulin 3.3 g/dL Albumin/Globulin Ratio 0.4 (1.0-2.7) L Elayne Allred MD Jun 27, 2020 08:13
--- NOTE | 2020-06-27 09:20 | NUR ---
NURSE NOTES: Patient is resting in bed comfortably, no signs of acute distress. Medications given as prescribed, turned and repositioned patient, oral care given. Will continue to monitor.
--- NOTE | 2020-06-27 10:06 | General Progress Note ---
Subjective ROS Limited/Unobtainable: No Allergies: Coded Allergies: No Known Allergies (Unverified , 10/16/18) Objective Last 24 Hour Vital Signs Date Time Temp Pulse Resp B/P (MAP) Pulse Ox O2 Delivery O2 Flow Rate FiO2 06/27/20 09:00 44 34 118/60 (79) 94 06/27/20 08:05 48 06/27/20 08:00 98.3 49 35 143/65 (91) 94 06/27/20 08:00 75 06/27/20 08:00 Mechanical Ventilator Mechanical Ventilator 06/27/20 07:43 149/60 06/27/20 07:00 49 18 149/60 (89) 97 06/27/20 06:47 51 26 85 06/27/20 06:00 48 26 108/59 (75) 99 06/27/20 05:00 46 26 115/64 (81) 99 06/27/20 04:00 98.3 46 26 116/60 (78) 100 06/27/20 04:00 Mechanical Ventilator Mechanical Ventilator 06/27/20 04:00 85 06/27/20 03:00 59 23 123/67 (85) 100 06/27/20 02:30 78 26 85 06/27/20 02:00 68 23 132/76 (94) 99 06/27/20 01:00 67 23 138/64 (88) 100 06/27/20 00:07 57 06/27/20 00:00 85 06/27/20 00:00 97.5 58 12 130/62 (84) 97 06/27/20 00:00 Mechanical Ventilator Mechanical Ventilator 06/26/20 23:10 65 26 85 06/26/20 23:00 64 26 153/63 (93) 99 06/26/20 22:00 61 26 119/58 (78) 99 06/26/20 21:00 80 25 139/55 (83) 100 06/26/20 20:00 100.1 72 25 124/57 (79) 100 06/26/20 20:00 72 06/26/20 20:00 85 06/26/20 20:00 Mechanical Ventilator Mechanical Ventilator 06/26/20 19:35 89 26 85 06/26/20 19:00 70 25 129/63 (85) 99 06/26/20 18:00 71 26 129/61 (83) 99 06/26/20 17:00 61 26 126/54 (78) 100 06/26/20 16:00 85 06/26/20 16:00 100.0 69 26 133/55 (81) 100 06/26/20 16:00 66 06/26/20 16:00 Mechanical Ventilator Mechanical Ventilator 06/26/20 15:41 63 26 85 06/26/20 15:00 64 26 113/51 (71) 100 06/26/20 14:00 93 30 109/88 (95) 99 06/26/20 13:18 100.3 06/26/20 13:00 96 24 130/60 (83) 98 06/26/20 12:00 72 06/26/20 12:00 85 06/26/20 12:00 100.3 64 26 115/49 (71) 98 06/26/20 12:00 Mechanical Ventilator Mechanical Ventilator 06/26/20 11:08 78 26 85 06/26/20 11:00 78 21 125/92 (103) 100 Intake and Output 06/26/20 06/27/20 19:00 07:00 Intake Total 1120 ml 800 ml Output Total 1030 ml 1100 ml Balance 90 ml -300 ml IV Total 500 ml Tube Feeding 620 ml 600 ml Other 200 ml Output Urine Total 980 ml 1050 ml Stool Total 50 ml 50 ml Laboratory Tests 06/26/20 20:22: POC Whole Blood Glucose 236H 06/27/20 04:25: White Blood Count 14.1H, Red Blood Count 2.18L, Hemoglobin 7.1L, Hematocrit 21.3L, Mean Corpuscular Volume 98, Mean Corpuscular Hemoglobin 32.7H, Mean Corpuscular Hemoglobin Concent 33.5, Red Cell Distribution Width 15.9H, Platelet Count 101L, Mean Platelet Volume 8.5, Neutrophils (%) (Auto) , Lymphocytes (%) (Auto) , Monocytes (%) (Auto) , Eosinophils (%) (Auto) , Basophils (%) (Auto) , Neutrophils % (Manual) [Pending], Lymphocytes % (Manual) [Pending], Platelet Estimate [Pending], Platelet Morphology [Pending], Sodium Level 154H, Potassium Level 2.5*L, Chloride Level 116H, Carbon Dioxide Level 29, Anion Gap 8, Blood Urea Nitrogen 24H, Creatinine 0.7, Estimat Glomerular Filtration Rate > 60, Glucose Level 171#H, Calcium Level 7.2L, Phosphorus Level 2.4L, Magnesium Level 1.9, Total Bilirubin 0.4, Aspartate Amino Transf (AST/SGOT) 18, Alanine Aminotransferase (ALT/SGPT) 36, Alkaline Phosphatase 46, C-Reactive Protein, Quantitative 1.5H, Pro-B-Type Natriuretic Peptide [id number], Total Protein 4.6L, Albumin 1.3L, Globulin 3.3, Albumin/Globulin Ratio 0.4L Height (Feet): 5 Height (Inches): 3.00 Weight (Pounds): 172 General Appearance: lethargic EENT: normal ENT inspection Neck: supple Cardiovascular: normal rate Respiratory/Chest: decreased breath sounds Abdomen: non tender, soft, decreased bowel sounds Extremities: non-tender Assessment/Plan Assessment/Plan: 1. History of Down syndrome. 2. Dysphagia with G-tube. 3. Seizure disorder. 4. Hypothyroidism. 5. LEANN. 6. Pneumonia. 7. Sepsis. fu H&H prn blood transfusion to keep HGB above 7 ppi GTF hold GI procedures for now stool ob + 1/2 Nehemiah Perez MD Jun 27, 2020 10:06
--- NOTE | 2020-06-27 10:07 | NUR ---
NURSE NOTES: Patient became tachypneic, RR 33 and O2 saturation at 89%. Increased patient's FiO2 to 80%, Patient's RR 24, O2 Saturation at 97%.
--- NOTE | 2020-06-27 10:33 | NUR ---
NURSE NOTES: Blood draw done on patient, sent sample to lab.
[2020-06-27] MEDS: DOPamine 400mg/250ml 250 ML IV SCH (11:09)
--- NOTE | 2020-06-27 13:41 | NUR ---
NURSE NOTES: Blood transfusion started on patient, Temperature 98.0 degrees Fahrenheit via axillary, Pulse 68, BP 98/53.
--- NOTE | 2020-06-27 13:56 | NUR ---
NURSE NOTES: Post 15 minutes of blood transfusion, patient is tolerating well. Temperature 98.1, B/P 119/66, Pulse 65.
--- NOTE | 2020-06-27 14:20 | NUR ---
NURSE NOTES: Patient not receiving full volume from ventilator. Assessed patient with RT and notified Dr. Allred.
--- NOTE | 2020-06-27 15:12 | Infectious Diseases Prog Note ---
Assessment/Plan ASSESSMENT: sp code blue 06/03 Septic Shock; SP Fever, recurrent- low grade over night Leukocytosis; persistent/fluctuating, improved -06/17 u/a no pyuria -06/16 Bcx NTD (Picc line) -06/14 Bcx NTD ucx Neg sp cx C. parapsilopsis -06/03 u/a no pyuria Pneumonia.- COVID 19 neg x3 Acute hypoxic resp failure on VM> NRB 15l 100%; hypoxic on ABG> now VDRF 06/03- Fio2 80% >100% 06/05> 60% 06/09 >80% 06/10 >95% 06/18 >90% 06/22 >60% 06/23 -06/22 CXR: Improved aeration of both lungs. -06/13 CXR:Small bilateral pleural effusions with minor edema. Stable edema with mild worsening in the degree of pleural effusion on the right. -06/09 sp cx Neg 06/08 CXR: Extensive bilateral interstitial and airspace disease appears similar to the prior exam. Moderate to large bilateral pleural effusions appear unchanged. 06/05 CXR: Increasing left upper lobe dense consolidation and likely increasing bilateral pleural fluid. Persistent diffuse dense consolidation elsewhere -06/03 sp cx normal resp marie -06/02 CXR: Increased atelectasis of the right lung, since prior exam of 3 days earlier. New or increased right pleural effusion. Increased left basilar consolidation and/or pleural fluid -COVID Rapid PCR neg 05/31, 05/31, 06/03 -05/30 spc x Group G strep -05/30 CXR: Reduced lung volumes. Patchy bilateral predominantly interstitial pulmonary opacities. Could be from edema and/or pneumonia. There is a broader differential. -legionella ag urine, blasto ab, Histo ab, HIV ab screen, FRANCIS, ANCA neg Persistent, high grade bacteremia- -05/30 Bcx 4/4 sets S. haemolyticus; 05/31 Bcx 3/4 S/ epi; 06/04 Bcx 1.4 S. warnerri; 06/06 Bcx Neg -2d echo: no vegetaions seen ua/ wbc 10-15, nit neg, leuk +1; ucx Neg LEANN; -supratherapeutic vanco levels -Seizure disorder. - Hypothyroidism. - Down syndrome. History of PEG tube placement. [place] resident PLAN: Continue to monitor off abx, if more episode of fever, will start Empiric AB Rx 06/22 SP Meropenem #18, IV AMikacin #7 06/12/20 SP Daptomycin #11 06/10 SP MIcafungin #7, Linezolid #5 06/05 SP Azithromycin #7/7 06/03 SP Ceftriaxone #2 06/02 SP IV Vancomycin #4, Zosyn #4 05/30 SP Cefepime x1, Flagyl x1 - Monitor CBC, BMP. .f/u Repeat cx - COVID neg x3 - Monitor chest x-ray. - Monitor the patient's clinical course and labs. Based on those, we will do further recommendation. -f/u Bcx from picc line, cdiff if diarrhea -f/u Fungitell, asp ag, flow cytometry -Once stable, CT chest/abd/pw/ given persistent leukocytosis -poor prognosis - ortiz Cx ( B,U, S) Thank you, Dr. Allred, for allowing me to participate in the care of this patient. I will follow the patient with you at this hospitalization. Discussed with RN Subjective Allergies: Coded Allergies: No Known Allergies (Unverified , 10/16/18) in ICU Afebrile Objective Last 24 Hour Vital Signs Date Time Temp Pulse Resp B/P (MAP) Pulse Ox O2 Delivery O2 Flow Rate FiO2 06/27/20 14:00 53 43 112/61 (78) 94 06/27/20 13:00 49 48 98/53 (68) 96 06/27/20 12:00 98.3 52 39 106/59 (75) 93 06/27/20 12:00 85 06/27/20 12:00 Mechanical Ventilator Mechanical Ventilator 06/27/20 11:46 53 26 85 06/27/20 11:42 55 06/27/20 11:00 56 41 117/60 (79) 95 06/27/20 10:00 55 26 134/68 (90) 94 06/27/20 09:00 44 34 118/60 (79) 94 06/27/20 08:05 48 06/27/20 08:00 98.3 49 35 143/65 (91) 94 06/27/20 08:00 75 06/27/20 08:00 Mechanical Ventilator Mechanical Ventilator 06/27/20 07:43 149/60 06/27/20 07:00 49 18 149/60 (89) 97 06/27/20 06:47 51 26 85 06/27/20 06:00 48 26 108/59 (75) 99 06/27/20 05:00 46 26 115/64 (81) 99 06/27/20 04:00 98.3 46 26 116/60 (78) 100 06/27/20 04:00 Mechanical Ventilator Mechanical Ventilator 06/27/20 04:00 85 06/27/20 03:00 59 23 123/67 (85) 100 06/27/20 02:30 78 26 85 06/27/20 02:00 68 23 132/76 (94) 99 06/27/20 01:00 67 23 138/64 (88) 100 06/27/20 00:07 57 06/27/20 00:00 85 06/27/20 00:00 97.5 58 12 130/62 (84) 97 06/27/20 00:00 Mechanical Ventilator Mechanical Ventilator 06/26/20 23:10 65 26 85 06/26/20 23:00 64 26 153/63 (93) 99 06/26/20 22:00 61 26 119/58 (78) 99 06/26/20 21:00 80 25 139/55 (83) 100 06/26/20 20:00 100.1 72 25 124/57 (79) 100 06/26/20 20:00 72 06/26/20 20:00 85 06/26/20 20:00 Mechanical Ventilator Mechanical Ventilator 06/26/20 19:35 89 26 85 06/26/20 19:00 70 25 129/63 (85) 99 06/26/20 18:00 71 26 129/61 (83) 99 06/26/20 17:00 61 26 126/54 (78) 100 06/26/20 16:00 85 06/26/20 16:00 100.0 69 26 133/55 (81) 100 06/26/20 16:00 66 06/26/20 16:00 Mechanical Ventilator Mechanical Ventilator 06/26/20 15:41 63 26 85 Height (Feet): 5 Height (Inches): 3.00 Weight (Pounds): 172 HEENT: atraumatic Respiratory/Chest: normal breath sounds Cardiovascular: regular rhythm Abdomen: no organomegaly Laboratory Tests Test 06/26/20 20:22 9/19/20 04:25 POC Whole Blood Glucose 236 MG/DL (74-106) H White Blood Count 14.1 K/UL (4.8-10.8) H Red Blood Count 2.18 M/UL (4.20-5.40) L Hemoglobin 7.1 G/DL (12.0-16.0) L Hematocrit 21.3 % (37.0-47.0) L Mean Corpuscular Volume 98 FL (80-99) Mean Corpuscular Hemoglobin 32.7 PG (27.0-31.0) H Mean Corpuscular Hemoglobin Concent 33.5 G/DL (32.0-36.0) Red Cell Distribution Width 15.9 % (11.6-14.8) H Platelet Count 101 K/UL (150-450) L Mean Platelet Volume 8.5 FL (6.5-10.1) Neutrophils (%) (Auto) % (45.0-75.0) Lymphocytes (%) (Auto) % (20.0-45.0) Monocytes (%) (Auto) % (1.0-10.0) Eosinophils (%) (Auto) % (0.0-3.0) Basophils (%) (Auto) % (0.0-2.0) Differential Total Cells Counted 100 Neutrophils % (Manual) 93 % (45-75) H Lymphocytes % (Manual) 4 % (20-45) L Monocytes % (Manual) 2 % (1-10) Eosinophils % (Manual) 0 % (0-3) Basophils % (Manual) 0 % (0-2) Band Neutrophils 1 % (0-8) Platelet Estimate Decreased L Platelet Morphology Normal Anisocytosis 1+ Sodium Level 154 MMOL/L (136-145) H Potassium Level 2.5 MMOL/L (3.5-5.1) *L Chloride Level 116 MMOL/L (98-107) H Carbon Dioxide Level 29 MMOL/L (21-32) Anion Gap 8 mmol/L (5-15) Blood Urea Nitrogen 24 mg/dL (7-18) H Creatinine 0.7 MG/DL (0.55-1.30) Estimat Glomerular Filtration Rate > 60 mL/min (>60) Glucose Level 171 MG/DL (74-106) #H Calcium Level 7.2 MG/DL (8.5-10.1) L Phosphorus Level 2.4 MG/DL (2.5-4.9) L Magnesium Level 1.9 MG/DL (1.8-2.4) Total Bilirubin 0.4 MG/DL (0.2-1.0) Aspartate Amino Transf (AST/SGOT) 18 U/L (15-37) Alanine Aminotransferase (ALT/SGPT) 36 U/L (12-78) Alkaline Phosphatase 46 U/L (46-116) C-Reactive Protein, Quantitative 1.5 mg/dL (0.00-0.90) H Pro-B-Type Natriuretic Peptide 82792 pg/mL (0-125) H Total Protein 4.6 G/DL (6.4-8.2) L Albumin 1.3 G/DL (3.4-5.0) L Globulin 3.3 g/dL Albumin/Globulin Ratio 0.4 (1.0-2.7) L Current Medications Medications (Trade) Dose Ordered Sig/Katy Route PRN Reason Start Time Stop Time Status Last Admin Dose Admin Acetaminophen (Tylenol) 650 mg Q4H PRN GT FEVER 06/03/20 11:45 07/03/20 11:44 06/26/20 12:48 Chlorhexidine Gluconate (Alla-Hex 2%) 1 applic DAILY@1999 TOPIC 06/08/20 20:00 09/06/20 19:59 06/26/20 19:51 Clotrimazole (Lotrimin) 1 applic Q12HR TOPIC 06/07/20 13:00 09/05/20 12:59 06/27/20 08:07 Dextrose (Dextrose 50%) 25 ml Q30M PRN IV Hypoglycemia 06/03/20 11:30 08/28/20 11:29 Dextrose (Dextrose 50%) 50 ml Q30M PRN IV Hypoglycemia 06/03/20 11:30 08/28/20 11:29 Dopamine HCl/ Dextrose 250 ml @ 0 mls/hr Q24H IV 06/12/20 11:15 09/10/20 11:14 06/14/20 19:47 Hydrocortisone (Solu-CORTEF) 100 mg EVERY 8 HOURS IV 06/07/20 14:00 09/05/20 13:59 06/27/20 14:02 Insulin Aspart (NovoLOG) Q6HR SUBQ 06/26/20 12:00 09/24/20 11:59 06/27/20 12:20 Insulin Detemir (Levemir) 10 units Q12HR SUBQ 06/26/20 10:00 09/24/20 09:59 06/27/20 08:07 Levothyroxine Sodium (Synthroid) 75 mcg DAILY GT 06/04/20 09:00 06/30/20 08:59 06/27/20 08:05 Loperamide HCl (Imodium) 2 mg Q6H PRN NG Diarrhea 06/24/20 10:30 07/24/20 10:29 Midodrine (Pro-Amatine) 10 mg Q8HR GT 06/05/20 14:00 09/03/20 13:59 06/27/20 14:02 Norepinephrine Bitartrate 16 mg/ Dextrose 500 ml @ 0 mls/hr Q24H IV 06/08/20 07:45 07/07/20 12:59 06/12/20 08:43 Ondansetron HCl (Zofran) 4 mg Q6H PRN IVP Nausea & Vomiting 06/03/20 12:00 06/29/20 11:59 Pantoprazole (Protonix) 40 mg DAILY IV 06/04/20 09:00 06/30/20 08:59 06/27/20 08:05 Phenylephrine HCl 50 mg/Dextrose 250 ml @ 0 mls/hr Q24H PRN IV For hypotension 06/06/20 17:45 07/06/20 17:44 06/08/20 01:49 Polyethylene Glycol (Miralax) 17 gm DAILYPRN PRN GT Constipation 06/03/20 12:00 06/29/20 11:59 Valproic Acid (Depakene) 500 mg EVERY 8 HOURS GT 06/03/20 14:00 06/29/20 21:59 06/27/20 14:02 Mitul Tucker MD Jun 27, 2020 15:12
--- NOTE | 2020-06-27 15:41 | Nephrology Progress Note ---
Assessment/Plan Problem List: (1) LEANN (acute kidney injury) (2) Respiratory failure requiring intubation (3) Down's syndrome (4) Seizure disorder (5) Hypothyroidism Assessment Acute renal failure, likely due to hypotension Acute respiratory distress, hypoxia Seizure disorder Hypothyroidism Down syndrome Full code Fluid challenge with IV fluids and albumin Midodrine for BP above 100 systolic Check TSH level Check Correct level Monitor renal parameters Urine studies Per orders Plan June 27: Labs reviewed. Abnormal electrolyte addressed. Remains full code. Remains vented. June 26: Day 27 of hospitalization. Full code. Labs reviewed. Hemoglobin down to 7.5. Electrolyte abnormalities addressed and corrections ordered. Continue to monitor renal parameters. Continue per consultants. Start on Levemir for blood sugar management. Questioning continuation of hydrocortisone? June 25: Labs reviewed. Potassium, phosphorus, hemoglobin, are all low. Potassium and phosphorus IV replacement given. Continue to monitor electrolytes and CBC. Patient remains full code. June 24: Lab reviewed. Low phosphorus low magnesium and low potassium was addressed. Hemoglobin drifting lower. Continue per consultants. Patient remains full code. June 23: Labs reviewed. Patient continues to be on ventilator. D5W for high sodium and also potassium chloride intravenously as supplement given. Hemoglobin 8.4. Continue to monitor electrolytes and renal parameters. June 22: Labs reviewed. Low potassium and high sodium noted. Hemoglobin 8.1 stable. Aim to correct abnormal electrolyte. Continue rest. Will give 2 boluses of D5W 500 cc. June 21: Lab reviewed. Abnormal electrolytes noted and addressed. June 20: Labs reviewed. Potassium supplement given. Patient remains full code. Continue per consultants. June 19: Lab reviewed. Electrolyte abnormalities addressed. Continue per pulmonary and ID. June 18: Lab reviewed. Status unchanged. Serum sodium 151 unchanged. Stable from renal standpoint of view. June 17: Labs reviewed. Status quo. D5W 500 cc IV ordered. Continue to monitor renal parameters. June 16: Status quo. Labs reviewed. Overall condition unchanged. Patient was transfused and hemoglobin higher. Continue current management. Patient remains full code. June 15: Status quo. Overall condition poor. Very low albumin. Edematous. Hypotensive. Hemoglobin lower. Anemia work-up ordered. I favor transfusion 2 units of packed RBCs. Patient remains full code. I favor supportive care only. Will discuss. June 14: Electrolyte abnormalities addressed. Serum creatinine lower. Continue per current management. Sofie 5: Status unchanged. Lab reviewed. Serum potassium 2.7. IV potassium chloride ordered. Serum creatinine low at 1.6 stable. Blood pressure 90s systolic June 12: Status quo. Labs reviewed. Renal parameters stable. Serum creatinine down to 1.6. Medication list reviewed. Continues to be on midodrine. Continue per consultants. June 11: Status quo. Labs reviewed. Electrolytes adjusted. Serum creatinine down to 1.8. Continue per consultants. June 10: Status quo. Labs reviewed. Phosphorus supplement IV given. Serum creatinine 2. Continue per consultants. June 09: Requires less pressors. Albumin bolus given. 1 dose of Lasix IV ordered as the patient severely edematous. Patient serum albumin is very low. Continue per consultants. June 08: Continues to be intubated. Labs reviewed. Serum creatinine 1.9 unchanged. Blood pressure more stable. Off 1 of the pressors. Continue to monitor renal parameters. Continue per consultants. Patient now on hydrocortisone 100 mg every 8 hours. Will decrease IV fluid. Normal saline down to 50 cc an hour. June 07: Intubated. Labs reviewed. Creatinine 1.9 unchanged. Continue same treatment plan. Per consultants. Overall poor prognosis since the patient remains on pressors and her pulmonary status is worsening. June 06: Remains intubated. Labs reviewed. Creatinine 1.9. Blood pressure systolic 90s. Continue per consultants. June 05: Remains intubated. Labs reviewed. Serum creatinine lower to 2. Vancomycin level lower. Remains hypotensive on pressors. Will increase midodrine to 10 mg every 8 hours. Continue per consultants. Continue to monitor renal parameters. June 04: Patient now in ICU. Intubated. On pressors. Labs reviewed. Will increase midodrine. Aim to keep blood pressure over 100 systolic. Will give albumin bolus. Will check vancomycin level which was elevated when checked previously on June 01. Will monitor renal parameters. Continue per consultants. Subjective ROS Limited/Unobtainable: Yes Objective Objective Last 24 Hour Vital Signs Date Time Temp Pulse Resp B/P (MAP) Pulse Ox O2 Delivery O2 Flow Rate FiO2 06/27/20 14:00 53 43 112/61 (78) 94 06/27/20 13:00 49 48 98/53 (68) 96 06/27/20 12:00 98.3 52 39 106/59 (75) 93 06/27/20 12:00 85 06/27/20 12:00 Mechanical Ventilator Mechanical Ventilator 06/27/20 11:46 53 26 85 06/27/20 11:42 55 06/27/20 11:00 56 41 117/60 (79) 95 06/27/20 10:00 55 26 134/68 (90) 94 06/27/20 09:00 44 34 118/60 (79) 94 06/27/20 08:05 48 06/27/20 08:00 98.3 49 35 143/65 (91) 94 06/27/20 08:00 75 06/27/20 08:00 Mechanical Ventilator Mechanical Ventilator 06/27/20 07:43 149/60 06/27/20 07:00 49 18 149/60 (89) 97 06/27/20 06:47 51 26 85 06/27/20 06:00 48 26 108/59 (75) 99 06/27/20 05:00 46 26 115/64 (81) 99 06/27/20 04:00 98.3 46 26 116/60 (78) 100 06/27/20 04:00 Mechanical Ventilator Mechanical Ventilator 06/27/20 04:00 85 06/27/20 03:00 59 23 123/67 (85) 100 06/27/20 02:30 78 26 85 06/27/20 02:00 68 23 132/76 (94) 99 06/27/20 01:00 67 23 138/64 (88) 100 06/27/20 00:07 57 06/27/20 00:00 85 06/27/20 00:00 97.5 58 12 130/62 (84) 97 06/27/20 00:00 Mechanical Ventilator Mechanical Ventilator 06/26/20 23:10 65 26 85 06/26/20 23:00 64 26 153/63 (93) 99 06/26/20 22:00 61 26 119/58 (78) 99 06/26/20 21:00 80 25 139/55 (83) 100 06/26/20 20:00 100.1 72 25 124/57 (79) 100 06/26/20 20:00 72 06/26/20 20:00 85 06/26/20 20:00 Mechanical Ventilator Mechanical Ventilator 06/26/20 19:35 89 26 85 06/26/20 19:00 70 25 129/63 (85) 99 06/26/20 18:00 71 26 129/61 (83) 99 06/26/20 17:00 61 26 126/54 (78) 100 06/26/20 16:00 85 06/26/20 16:00 100.0 69 26 133/55 (81) 100 06/26/20 16:00 66 06/26/20 16:00 Mechanical Ventilator Mechanical Ventilator 06/26/20 15:41 63 26 85 Intake and Output 06/26/20 06/27/20 19:00 07:00 Intake Total 1120 ml 800 ml Output Total 1030 ml 1100 ml Balance 90 ml -300 ml IV Total 500 ml Tube Feeding 620 ml 600 ml Other 200 ml Output Urine Total 980 ml 1050 ml Stool Total 50 ml 50 ml Laboratory Tests 06/26/20 20:22: POC Whole Blood Glucose 236H 06/27/20 04:25: White Blood Count 14.1H, Red Blood Count 2.18L, Hemoglobin 7.1L, Hematocrit 21.3L, Mean Corpuscular Volume 98, Mean Corpuscular Hemoglobin 32.7H, Mean Corpuscular Hemoglobin Concent 33.5, Red Cell Distribution Width 15.9H, Platelet Count 101L, Mean Platelet Volume 8.5, Neutrophils (%) (Auto) , Lymphocytes (%) (Auto) , Monocytes (%) (Auto) , Eosinophils (%) (Auto) , Basophils (%) (Auto) , Differential Total Cells Counted 100, Neutrophils % (Manual) 93H, Lymphocytes % (Manual) 4L, Monocytes % (Manual) 2, Eosinophils % (Manual) 0, Basophils % (Manual) 0, Band Neutrophils 1, Platelet Estimate DecreasedL, Platelet Morphology Normal, Anisocytosis 1+, Sodium Level 154H, Potassium Level 2.5*L, Chloride Level 116H, Carbon Dioxide Level 29, Anion Gap 8, Blood Urea Nitrogen 24H, Creatinine 0.7, Estimat Glomerular Filtration Rate > 60, Glucose Level 171#H, Calcium Level 7.2L, Phosphorus Level 2.4L, Magnesium Level 1.9, Total Bilirubin 0.4, Aspartate Amino Transf (AST/SGOT) 18, Alanine Aminotransferase (ALT/SGPT) 36, Alkaline Phosphatase 46, C-Reactive Protein, Quantitative 1.5H, Pro-B-Type Natriuretic Peptide 70920B, Total Protein 4.6L, Albumin 1.3L, Globulin 3.3, Albumin/Globulin Ratio 0.4L Height (Feet): 5 Height (Inches): 3.00 Weight (Pounds): 172 General Appearance: no apparent distress EENT: other - On ventilator Cardiovascular: normal rate Respiratory/Chest: decreased breath sounds Abdomen: distended Keron Pitt MD Jun 27, 2020 15:41
--- NOTE | 2020-06-27 16:34 | Internal Med Progress Note ---
Subjective Date of Service: Jun 27, 2020 Physician Name Joni Copeland Attending Physician Elayne Allred MD Current Medications Medications (Trade) Dose Ordered Sig/Katy Route PRN Reason Start Time Stop Time Status Last Admin Dose Admin Acetaminophen (Tylenol) 650 mg Q4H PRN GT FEVER 06/03/20 11:45 07/03/20 11:44 06/26/20 12:48 Chlorhexidine Gluconate (Alla-Hex 2%) 1 applic DAILY@2000 TOPIC 06/08/20 20:00 09/06/20 19:59 06/26/20 19:51 Clotrimazole (Lotrimin) 1 applic Q12HR TOPIC 06/07/20 13:00 09/05/20 12:59 06/27/20 08:07 Dextrose (Dextrose 50%) 25 ml Q30M PRN IV Hypoglycemia 06/03/20 11:30 08/28/20 11:29 Dextrose (Dextrose 50%) 50 ml Q30M PRN IV Hypoglycemia 06/03/20 11:30 08/28/20 11:29 Dopamine HCl/ Dextrose 250 ml @ 0 mls/hr Q24H IV 06/12/20 11:15 09/10/20 11:14 06/14/20 19:47 Hydrocortisone (Solu-CORTEF) 100 mg EVERY 8 HOURS IV 06/07/20 14:00 09/05/20 13:59 06/27/20 14:02 Insulin Aspart (NovoLOG) Q6HR SUBQ 06/26/20 12:00 09/24/20 11:59 06/27/20 12:20 Insulin Detemir (Levemir) 10 units Q12HR SUBQ 06/26/20 10:00 09/24/20 09:59 06/27/20 08:07 Levothyroxine Sodium (Synthroid) 75 mcg DAILY GT 06/04/20 09:00 06/30/20 08:59 06/27/20 08:05 Loperamide HCl (Imodium) 2 mg Q6H PRN NG Diarrhea 06/24/20 10:30 07/24/20 10:29 Midodrine (Pro-Amatine) 10 mg Q8HR GT 06/05/20 14:00 09/03/20 13:59 06/27/20 14:02 Norepinephrine Bitartrate 16 mg/ Dextrose 500 ml @ 0 mls/hr Q24H IV 06/08/20 07:45 07/07/20 12:59 06/12/20 08:43 Ondansetron HCl (Zofran) 4 mg Q6H PRN IVP Nausea & Vomiting 06/03/20 12:00 06/29/20 11:59 Pantoprazole (Protonix) 40 mg DAILY IV 06/04/20 09:00 06/30/20 08:59 06/27/20 08:05 Phenylephrine HCl 50 mg/Dextrose 250 ml @ 0 mls/hr Q24H PRN IV For hypotension 06/06/20 17:45 07/06/20 17:44 06/08/20 01:49 Polyethylene Glycol (Miralax) 17 gm DAILYPRN PRN GT Constipation 06/03/20 12:00 06/29/20 11:59 Valproic Acid (Depakene) 500 mg EVERY 8 HOURS GT 06/03/20 14:00 06/29/20 21:59 06/27/20 14:02 Allergies: Coded Allergies: No Known Allergies (Unverified , 10/16/18) ROS Limited/Unobtainable: Yes Subjective 59 YO F with Down's syndrome admitted with hypoxia. Now sepsis and pneumonia. Cover for Int Med-DR Hawk. ICU. Intubated and sedated Objective Last Vital Signs Date Time Temp Pulse Resp B/P (MAP) Pulse Ox O2 Delivery O2 Flow Rate FiO2 06/27/20 15:20 52 26 85 06/27/20 14:00 112/61 (78) 94 06/27/20 12:00 98.3 06/27/20 12:00 Mechanical Ventilator Mechanical Ventilator Laboratory Tests Test 06/26/20 20:22 06/27/20 04:25 POC Whole Blood Glucose 236 MG/DL (74-106) H White Blood Count 14.1 K/UL (4.8-10.8) H Red Blood Count 2.18 M/UL (4.20-5.40) L Hemoglobin 7.1 G/DL (12.0-16.0) L Hematocrit 21.3 % (37.0-47.0) L Mean Corpuscular Volume 98 FL (80-99) Mean Corpuscular Hemoglobin 32.7 PG (27.0-31.0) H Mean Corpuscular Hemoglobin Concent 33.5 G/DL (32.0-36.0) Red Cell Distribution Width 15.9 % (11.6-14.8) H Platelet Count 101 K/UL (150-450) L Mean Platelet Volume 8.5 FL (6.5-10.1) Neutrophils (%) (Auto) % (45.0-75.0) Lymphocytes (%) (Auto) % (20.0-45.0) Monocytes (%) (Auto) % (1.0-10.0) Eosinophils (%) (Auto) % (0.0-3.0) Basophils (%) (Auto) % (0.0-2.0) Differential Total Cells Counted 100 Neutrophils % (Manual) 93 % (45-75) H Lymphocytes % (Manual) 4 % (20-45) L Monocytes % (Manual) 2 % (1-10) Eosinophils % (Manual) 0 % (0-3) Basophils % (Manual) 0 % (0-2) Band Neutrophils 1 % (0-8) Platelet Estimate Decreased L Platelet Morphology Normal Anisocytosis 1+ Sodium Level 154 MMOL/L (136-145) H Potassium Level 2.5 MMOL/L (3.5-5.1) *L Chloride Level 116 MMOL/L (98-107) H Carbon Dioxide Level 29 MMOL/L (21-32) Anion Gap 8 mmol/L (5-15) Blood Urea Nitrogen 24 mg/dL (7-18) H Creatinine 0.7 MG/DL (0.55-1.30) Estimat Glomerular Filtration Rate > 60 mL/min (>60) Glucose Level 171 MG/DL (74-106) #H Calcium Level 7.2 MG/DL (8.5-10.1) L Phosphorus Level 2.4 MG/DL (2.5-4.9) L Magnesium Level 1.9 MG/DL (1.8-2.4) Total Bilirubin 0.4 MG/DL (0.2-1.0) Aspartate Amino Transf (AST/SGOT) 18 U/L (15-37) Alanine Aminotransferase (ALT/SGPT) 36 U/L (12-78) Alkaline Phosphatase 46 U/L (46-116) C-Reactive Protein, Quantitative 1.5 mg/dL (0.00-0.90) H Pro-B-Type Natriuretic Peptide 01111 pg/mL (0-125) H Total Protein 4.6 G/DL (6.4-8.2) L Albumin 1.3 G/DL (3.4-5.0) L Globulin 3.3 g/dL Albumin/Globulin Ratio 0.4 (1.0-2.7) L Intake and Output 06/26/20 06/27/20 19:00 07:00 Intake Total 1120 ml 800 ml Output Total 1030 ml 1100 ml Balance 90 ml -300 ml IV Total 500 ml Tube Feeding 620 ml 600 ml Other 200 ml Output Urine Total 980 ml 1050 ml Stool Total 50 ml 50 ml Objective General Appearance: WD/WN, no apparent distress, alert EENT: PERRL/EOMI, normal ENT inspection Neck: non-tender, normal alignment, supple, normal inspection Cardiovascular: normal peripheral pulses, normal rate, regular rhythm, no gallop/murmur, no JVD Respiratory/Chest: Mech vent; decreased breath sounds, crackles/rales, rhonchi - bilaterally, expiratory wheezing Abdomen: normal bowel sounds, non tender, soft, no organomegaly, no mass Extremities: normal range of motion 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 Continue amikacin per ID=Dr Camejo. Pulmonary/Critical care=DR Allred. COVID NEG (2) Sepsis Assessment & Plan: Staph haemolyticus. Continue amikacin per ID=Dr Camejo (3) Down's syndrome (4) Dysphagia Assessment & Plan: S/P PEG (5) Seizure disorder Assessment & Plan: Continue keppra and depakote (6) Hypothyroidism Assessment & Plan: Continue synthroid (7) Acute respiratory failure Assessment & Plan: Pulmonary = Dr Allred; [facility] vent Joni Copeland MD Jun 27, 2020 16:34
--- NOTE | 2020-06-27 17:00 | Cardiology Progress Note ---
Assessment/Plan Problem List: (1) Diarrhea (2) Anemia (3) Hypernatremia (4) Hypokalemia (5) Down's syndrome (6) Acute respiratory failure (7) Pneumonia (8) Respiratory failure requiring intubation Status: stable, unchanged Status Narrative Pt w/ pneumonia, respiratory failure. previous s epi bacteremia She has sinus bradycardia, while sedated, without hemodynamic compromise. Diarrhea - ? cause. C diff negative Has hypokalemia, hypernatrema, due to diarrhea, vol depletion. Assessment/Plan Rec supplement K, free water hydration Check stool guiacs. continue iv abx, vent support for pneumonia as per ID, pulmonary. Recheck cultures. repeat labs in am Subjective ROS Limited/Unobtainable: Yes Subjective Cardiology for Dr. Pantoja Intubated, sedated Objective Last 24 Hour Vital Signs Date Time Temp Pulse Resp B/P (MAP) Pulse Ox O2 Delivery O2 Flow Rate FiO2 06/27/20 15:20 52 26 85 06/27/20 14:00 53 43 112/61 (78) 94 06/27/20 13:00 49 48 98/53 (68) 96 06/27/20 12:00 98.3 52 39 106/59 (75) 93 06/27/20 12:00 85 06/27/20 12:00 Mechanical Ventilator Mechanical Ventilator 06/27/20 11:46 53 26 85 06/27/20 11:42 55 06/27/20 11:00 56 41 117/60 (79) 95 06/27/20 10:00 55 26 134/68 (90) 94 06/27/20 09:00 44 34 118/60 (79) 94 06/27/20 08:05 48 06/27/20 08:00 98.3 49 35 143/65 (91) 94 06/27/20 08:00 75 06/27/20 08:00 Mechanical Ventilator Mechanical Ventilator 06/27/20 07:43 149/60 06/27/20 07:00 49 18 149/60 (89) 97 06/27/20 06:47 51 26 85 06/27/20 06:00 48 26 108/59 (75) 99 06/27/20 05:00 46 26 115/64 (81) 99 06/27/20 04:00 98.3 46 26 116/60 (78) 100 06/27/20 04:00 Mechanical Ventilator Mechanical Ventilator 06/27/20 04:00 85 06/27/20 03:00 59 23 123/67 (85) 100 06/27/20 02:30 78 26 85 06/27/20 02:00 68 23 132/76 (94) 99 06/27/20 01:00 67 23 138/64 (88) 100 06/27/20 00:07 57 06/27/20 00:00 85 06/27/20 00:00 97.5 58 12 130/62 (84) 97 06/27/20 00:00 Mechanical Ventilator Mechanical Ventilator 06/26/20 23:10 65 26 85 06/26/20 23:00 64 26 153/63 (93) 99 06/26/20 22:00 61 26 119/58 (78) 99 06/26/20 21:00 80 25 139/55 (83) 100 06/26/20 20:00 100.1 72 25 124/57 (79) 100 06/26/20 20:00 72 06/26/20 20:00 85 06/26/20 20:00 Mechanical Ventilator Mechanical Ventilator 06/26/20 19:35 89 26 85 06/26/20 19:00 70 25 129/63 (85) 99 06/26/20 18:00 71 26 129/61 (83) 99 06/26/20 17:00 61 26 126/54 (78) 100 General Appearance: WD/WN, on vent EENT: PERRL/EOMI, other - et tube Neck: no JVD Rhythm: NSR, SB Cardiovascular: regular rhythm, no gallop/murmur, bradycardia Respiratory/Chest: other - occ rhonchi. Transmitted upper airway sounds Abdomen: non tender, soft, other - + g tube Extremities: other - 1+ pedal edema bilat Intake and Output 06/26/20 06/27/20 19:00 07:00 Intake Total 1120 ml 800 ml Output Total 1030 ml 1100 ml Balance 90 ml -300 ml IV Total 500 ml Tube Feeding 620 ml 600 ml Other 200 ml Output Urine Total 980 ml 1050 ml Stool Total 50 ml 50 ml Laboratory Tests Test 06/26/20 20:22 06/27/20 04:25 POC Whole Blood Glucose 236 MG/DL (74-106) H White Blood Count 14.1 K/UL (4.8-10.8) H Red Blood Count 2.18 M/UL (4.20-5.40) L Hemoglobin 7.1 G/DL (12.0-16.0) L Hematocrit 21.3 % (37.0-47.0) L Mean Corpuscular Volume 98 FL (80-99) Mean Corpuscular Hemoglobin 32.7 PG (27.0-31.0) H Mean Corpuscular Hemoglobin Concent 33.5 G/DL (32.0-36.0) Red Cell Distribution Width 15.9 % (11.6-14.8) H Platelet Count 101 K/UL (150-450) L Mean Platelet Volume 8.5 FL (6.5-10.1) Neutrophils (%) (Auto) % (45.0-75.0) Lymphocytes (%) (Auto) % (20.0-45.0) Monocytes (%) (Auto) % (1.0-10.0) Eosinophils (%) (Auto) % (0.0-3.0) Basophils (%) (Auto) % (0.0-2.0) Differential Total Cells Counted 100 Neutrophils % (Manual) 93 % (45-75) H Lymphocytes % (Manual) 4 % (20-45) L Monocytes % (Manual) 2 % (1-10) Eosinophils % (Manual) 0 % (0-3) Basophils % (Manual) 0 % (0-2) Band Neutrophils 1 % (0-8) Platelet Estimate Decreased L Platelet Morphology Normal Anisocytosis 1+ Sodium Level 154 MMOL/L (136-145) H Potassium Level 2.5 MMOL/L (3.5-5.1) *L Chloride Level 116 MMOL/L (98-107) H Carbon Dioxide Level 29 MMOL/L (21-32) Anion Gap 8 mmol/L (5-15) Blood Urea Nitrogen 24 mg/dL (7-18) H Creatinine 0.7 MG/DL (0.55-1.30) Estimat Glomerular Filtration Rate > 60 mL/min (>60) Glucose Level 171 MG/DL (74-106) #H Calcium Level 7.2 MG/DL (8.5-10.1) L Phosphorus Level 2.4 MG/DL (2.5-4.9) L Magnesium Level 1.9 MG/DL (1.8-2.4) Total Bilirubin 0.4 MG/DL (0.2-1.0) Aspartate Amino Transf (AST/SGOT) 18 U/L (15-37) Alanine Aminotransferase (ALT/SGPT) 36 U/L (12-78) Alkaline Phosphatase 46 U/L (46-116) C-Reactive Protein, Quantitative 1.5 mg/dL (0.00-0.90) H Pro-B-Type Natriuretic Peptide 18384 pg/mL (0-125) H Total Protein 4.6 G/DL (6.4-8.2) L Albumin 1.3 G/DL (3.4-5.0) L Globulin 3.3 g/dL Albumin/Globulin Ratio 0.4 (1.0-2.7) Brooke Nascimento MD Jun 27, 2020 17:00
--- NOTE | 2020-06-27 18:02 | NUR ---
NURSE NOTES: Bed bath given to patient, reinserted rectal tube. Turned and repositioned, will continue to monitor.
--- NOTE | 2020-06-27 19:10 | NUR ---
NURSE NOTES: Received patient from TAI Mullen. Pt A/A/Ox2. SB on bus driver/monitor, HR 45. ET Tube at 7.5 22cm at lip line. Vent settings: AC 26, TV 500, FiO2 85%, PEEP 10. Left Upper Arm PICC intact w/drsg dry, clean and intact. G-tube infusing Vital AF at 50cc/hr. w/no residual noted. F/c draining well of clear yellow urine. Rectal tube in place. Bed locked in lowest position, side rails up x3, bed alarm engaged, head of bed elevated, call light within reach. Will continue POC.
--- NOTE | 2020-06-27 19:18 | NUR ---
NURSE HAND-OFF REPORT: Latest Vital Signs: Temperature 98.1 , Pulse 43 , B/P 145 /68 , Respiratory Rate 26 , O2 SAT 100 , Mechanical Ventilator, O2 Flow Rate 15.0 . Vital Sign Comment: EKG Rhythm: Sinus Bradycardia Rhythm change?: N MD Notified?: - MD Response: Latest Osorio Fall Score: 70 Fall Risk: High Risk Safety Measures: Call light Within Reach, Bed Alarm Zone 1, Side Rails Side Rails x3, Bed position Low and Locked. Fall Precautions: Yellow Socks Door Sign Patient Fall Education Report given to Roby LUJAN.
[2020-06-27] MEDS: Dyna-Hex 2% Top Sol 2oz TOPIC SCH (20:55)
[2020-06-28] VITALS (23 sets, daily range): BP systolic 89–152; BP diastolic 54–73
[2020-06-28] MEDS: NovoLOG Insulin Flexpen SUBQ SCH ×4 (00:14→17:16)
--- NOTE | 2020-06-28 01:00 | NUR ---
NURSE NOTES: Picture to left toe taken.
--- NOTE | 2020-06-28 04:00 | NUR ---
NURSE NOTES: Remain SB on hall monitor all night, HR 42-55. ET Tube at 7.5 22cm at lip line. Vent settings: AC 26, TV 500, FiO2 85%PEEP 10. Left Upper Arm PICC intact w/drsg dry, clean and intact. G-tube infusing Vital AF at 50cc/hr. w/no residual noted. F/c draining well of clear yellow urine. Rectal tube in place. Bed locked in lowest position, side rails up x3, bed alarm engaged, head of bed elevated, call light within reach. No SOB or distress noted. Will continue POC.
--- NOTE | 2020-06-28 05:00 | NUR ---
NURSE NOTES: AM Blood draw sent to lab
[2020-06-28] MEDS: Hydrocortisone 100mg Inj IV SCH ×3 (06:02→21:37)
[2020-06-28] MEDS: Valproic Acid 250mg/5ml Liquid GT SCH ×3 (06:03→21:37)
[2020-06-28] MEDS: Midodrine 10mg tab GT SCH ×3 (06:03→21:37)
[2020-06-28 06:11] LABS: HEMOGLOBIN 8.8 G/DL (12.0-16.0); MEAN CORPUSCULAR VOLUME 92 FL (80-99); PLATELET COUNT 90 K/UL (150-450); RED BLOOD COUNT 2.83 M/UL (4.20-5.40); RED CELL DISTRIBUTION WIDTH 18.8 % (11.6-14.8); WHITE BLOOD COUNT 12.4 K/UL (4.8-10.8)
[2020-06-28 07:03] LABS: ALANINE AMINOTRANSFERASE 32 U/L (12-78); ALBUMIN 1.2 G/DL (3.4-5.0); ALBUMIN/GLOBULIN RATIO 0.4 (1.0-2.7); ALKALINE PHOSPHATASE 43 U/L (46-116); ANION GAP 5 mmol/L (5-15); ASPARTATE AMINO TRANSFERASE 23 U/L (15-37); BILIRUBIN,TOTAL 0.6 MG/DL (0.2-1.0); BLOOD UREA NITROGEN 25 mg/dL (7-18); CALCIUM 7.7 MG/DL (8.5-10.1); CARBON DIOXIDE 30 MMOL/L (21-32); CHLORIDE 115 MMOL/L (98-107); CREATININE 0.7 MG/DL (0.55-1.30); SODIUM 151 MMOL/L (136-145)
--- NOTE | 2020-06-28 07:15 | NUR ---
HAND-OFF: Report given to Sheyla Alcala RN.
--- NOTE | 2020-06-28 07:20 | NUR ---
NURSE NOTES: Report received from Roby Rodriguez RN.Pt asleep noted no resp distress,orally intubated,ETT 7.5 lip line 22 cm ,AC26,TV500,Fio2 85%,PEEP5,GTF Vital AF1.2 at 50 ml/hr,no residual noted,Gregorio cath draining yellow urine,Rectal tube in placed with liquid brown stools,skin warm and dry IV site to JODY PICC line intact ,SR up x2 HOB elevated ,bed lock in lowest position ,will continue with plans of care.
[2020-06-28 07:25] LABS: POTASSIUM 2.6 MMOL/L (3.5-5.1)
[2020-06-28] MEDS: Norepinephrine Bitartrate 16 MG in D5W 500ml 484 ML IV SCH (07:45)
--- NOTE | 2020-06-28 09:07 | NUR ---
NURSE NOTES: pt awake on and off but sleeps most of the time,remains bradycardic while asleep,asymptomatic no distress presented .
[2020-06-28] MEDS: Pantoprazole Inj IV SCH (09:10)
[2020-06-28] MEDS: Levemir Flexpen SUBQ SCH ×2 (09:11→21:01)
--- NOTE | 2020-06-28 09:16 | General Progress Note ---
Subjective ROS Limited/Unobtainable: No Allergies: Coded Allergies: No Known Allergies (Unverified , 10/16/18) Objective Last 24 Hour Vital Signs Date Time Temp Pulse Resp B/P (MAP) Pulse Ox O2 Delivery O2 Flow Rate FiO2 06/28/20 08:00 85 06/28/20 08:00 97.5 46 29 149/61 (90) 97 06/28/20 08:00 Mechanical Ventilator Mechanical Ventilator 06/28/20 07:45 122/57 06/28/20 07:28 49 26 85 06/28/20 07:00 44 42 126/58 (80) 99 06/28/20 06:00 97.2 52 29 122/57 (78) 99 06/28/20 05:00 47 46 113/55 (74) 93 06/28/20 04:00 Mechanical Ventilator Mechanical Ventilator 06/28/20 04:00 47 06/28/20 04:00 46 29 99 06/28/20 04:00 85 06/28/20 03:25 47 26 85 06/28/20 03:00 47 30 126/65 (85) 100 06/28/20 02:00 43 26 140/59 (86) 100 06/28/20 01:00 41 26 136/68 (90) 99 06/28/20 00:00 98.2 42 26 152/69 (96) 99 06/28/20 00:00 85 06/28/20 00:00 Mechanical Ventilator Mechanical Ventilator 06/27/20 23:00 43 26 144/79 (100) 100 06/27/20 22:55 40 26 85 06/27/20 22:00 46 26 157/65 (95) 100 06/27/20 21:00 53 26 128/57 (80) 100 06/27/20 20:00 Mechanical Ventilator Mechanical Ventilator 06/27/20 20:00 48 06/27/20 20:00 98.8 52 26 135/62 (86) 100 06/27/20 20:00 85 06/27/20 19:31 42 26 85 06/27/20 19:00 43 26 145/68 (93) 100 06/27/20 18:00 46 25 129/70 (89) 100 06/27/20 17:00 67 31 138/84 (102) 98 06/27/20 16:00 Mechanical Ventilator Mechanical Ventilator 06/27/20 16:00 85 06/27/20 16:00 98.1 49 42 137/70 (92) 98 06/27/20 15:28 45 06/27/20 15:20 52 26 85 06/27/20 15:00 53 35 131/62 (85) 95 06/27/20 14:00 53 43 112/61 (78) 94 06/27/20 13:00 49 48 98/53 (68) 96 06/27/20 12:00 98.3 52 39 106/59 (75) 93 06/27/20 12:00 85 06/27/20 12:00 Mechanical Ventilator Mechanical Ventilator 06/27/20 11:46 53 26 85 06/27/20 11:42 55 06/27/20 11:00 56 41 117/60 (79) 95 06/27/20 10:00 55 26 134/68 (90) 94 Intake and Output 06/27/20 06/28/20 19:00 07:00 Intake Total 950 ml 600 ml Output Total 1435 ml 650 ml Balance -485 ml -50 ml IV Total 300 ml Tube Feeding 650 ml 600 ml Output Urine Total 1335 ml 600 ml Stool Total 100 ml 50 ml Laboratory Tests 06/28/20 05:10: White Blood Count 12.4H, Red Blood Count 2.83L, Hemoglobin 8.8L, Hematocrit 26.0L, Mean Corpuscular Volume 92, Mean Corpuscular Hemoglobin 31.3H, Mean Corpuscular Hemoglobin Concent 34.0, Red Cell Distribution Width 18.8H, Platelet Count 90L, Mean Platelet Volume 9.0, Neutrophils (%) (Auto) , Lymphocytes (%) (Auto) , Monocytes (%) (Auto) , Eosinophils (%) (Auto) , Basophils (%) (Auto) , Differential Total Cells Counted 100, Neutrophils % (Manual) 92H, Lymphocytes % (Manual) 5L, Monocytes % (Manual) 3, Eosinophils % (Manual) 0, Basophils % (Manual) 0, Band Neutrophils 0, Platelet Estimate DecreasedL, Platelet Morphology Normal, Hypochromasia 1+, Anisocytosis 2+, Sodium Level 151H, Potassium Level 2.6*L, Chloride Level 115H, Carbon Dioxide Level 30, Anion Gap 5, Blood Urea Nitrogen 25H, Creatinine 0.7, Estimat Glomerular Filtration Rate > 60, Glucose Level 132H, Calcium Level 7.7L, Phosphorus Level 3.0, Magnesium Level 1.7L, Total Bilirubin 0.6, Aspartate Amino Transf (AST/SGOT) 23, Alanine Aminotransferase (ALT/SGPT) 32, Alkaline Phosphatase 43L, Total Protein 4.6L, Albumin 1.2L, Globulin 3.4, Albumin/Globulin Ratio 0.4L 06/28/20 09:06: POC Whole Blood Glucose 153H Height (Feet): 5 Height (Inches): 3.00 Weight (Pounds): 172 General Appearance: no apparent distress EENT: normal ENT inspection Neck: supple Cardiovascular: normal rate Respiratory/Chest: decreased breath sounds Abdomen: normal bowel sounds, non tender, soft Extremities: non-tender Assessment/Plan Status: stable, unchanged Assessment/Plan: 1. History of Down syndrome. 2. Dysphagia with G-tube. 3. Seizure disorder. 4. Hypothyroidism. 5. LEANN. 6. Pneumonia. 7. Sepsis. fu H&H prn blood transfusion to keep HGB above 7 ppi GTF hold GI procedures for now stool ob + 1/2 Nehemiah Perez MD Jun 28, 2020 09:16
--- NOTE | 2020-06-28 10:16 | Pulmonolgy Critical Care Note ---
Critical Care - Asmt/Plan Problems: (1) Acute respiratory failure (2) Bacteremia (3) Pneumonia (4) Sepsis (5) HCAP (healthcare-associated pneumonia) (6) Seizure disorder (7) Down's syndrome Respiratory: monitor respiratory rate, adjust FIO2, CXR Cardiac: continue to monitor HR/BP Renal: F/U I&O, keep IV fluid, check electrolytes Infectious Disease: check cultures Gastrointestinal: continue feedings/current rate Endocrine: monitor blood sugar, continue sliding scale insulin Hematologic: monitor H/H, transfuse if hgb<8.5 Neurologic: PRN Morphine, keep patient comfortable Prophylaxis: Protonix Notes Reviewed: cone former, 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 with: nurses, consultants, case assembleraudience development manager - Objective Last 24 Hour Vital Signs Date Time Temp Pulse Resp B/P (MAP) Pulse Ox O2 Delivery O2 Flow Rate FiO2 06/28/20 08:00 85 06/28/20 08:00 97.5 46 29 149/61 (90) 97 06/28/20 08:00 Mechanical Ventilator Mechanical Ventilator 06/28/20 07:45 122/57 06/28/20 07:28 49 26 85 06/28/20 07:00 44 42 126/58 (80) 99 06/28/20 06:00 97.2 52 29 122/57 (78) 99 06/28/20 05:00 47 46 113/55 (74) 93 06/28/20 04:00 Mechanical Ventilator Mechanical Ventilator 06/28/20 04:00 47 06/28/20 04:00 46 29 99 06/28/20 04:00 85 06/28/20 03:25 47 26 85 06/28/20 03:00 47 30 126/65 (85) 100 06/28/20 02:00 43 26 140/59 (86) 100 06/28/20 01:00 41 26 136/68 (90) 99 06/28/20 00:00 98.2 42 26 152/69 (96) 99 06/28/20 00:00 85 06/28/20 00:00 Mechanical Ventilator Mechanical Ventilator 06/27/20 23:00 43 26 144/79 (100) 100 06/27/20 22:55 40 26 85 06/27/20 22:00 46 26 157/65 (95) 100 06/27/20 21:00 53 26 128/57 (80) 100 06/27/20 20:00 Mechanical Ventilator Mechanical Ventilator 06/27/20 20:00 48 06/27/20 20:00 98.8 52 26 135/62 (86) 100 06/27/20 20:00 85 06/27/20 19:31 42 26 85 06/27/20 19:00 43 26 145/68 (93) 100 06/27/20 18:00 46 25 129/70 (89) 100 06/27/20 17:00 67 31 138/84 (102) 98 06/27/20 16:00 Mechanical Ventilator Mechanical Ventilator 06/27/20 16:00 85 06/27/20 16:00 98.1 49 42 137/70 (92) 98 06/27/20 15:28 45 06/27/20 15:20 52 26 85 06/27/20 15:00 53 35 131/62 (85) 95 06/27/20 14:00 53 43 112/61 (78) 94 06/27/20 13:00 49 48 98/53 (68) 96 06/27/20 12:00 98.3 52 39 106/59 (75) 93 06/27/20 12:00 85 06/27/20 12:00 Mechanical Ventilator Mechanical Ventilator 06/27/20 11:46 53 26 85 06/27/20 11:42 55 06/27/20 11:00 56 41 117/60 (79) 95 Status: awake Condition: critical HEENT: atraumatic Neck: full ROM Heart: HR/BP stable Abdomen: soft, active bowel sounds, feeding tube Extremities: no C/C/E Decubiti: location Micro: Microbiology Date/Time Source Procedure Growth Status 06/27/20 16:34 Urine,Clean Catch Urine Culture - Preliminary NO GROWTH Resulted 06/27/20 16:34 Sputum Gram Stain - Final Resulted 06/27/20 16:34 Sputum Sputum Culture - Preliminary NO GROWTH Resulted Accucheck: 153 Critical Care - Subjective ROS Limited/Unobtainable: Yes Condition: critical FI02: 85 Vent Support Breath Rate: 26 Vent Support Mode: AC Vent Tidal Volume: 500 Sputum Amount: Moderate PEEP: 10.0 PIP: 51 Tube Feeding Amount: 50 I&O: Intake and Output 06/27/20 06/28/20 19:00 07:00 Intake Total 950 ml 600 ml Output Total 1435 ml 650 ml Balance -485 ml -50 ml IV Total 300 ml Tube Feeding 650 ml 600 ml Output Urine Total 1335 ml 600 ml Stool Total 100 ml 50 ml ET-Tube: 7.5 ET Position: 22 Labs: Laboratory Tests Test 06/28/20 05:10 06/28/20 09:06 White Blood Count 12.4 K/UL (4.8-10.8) H Red Blood Count 2.83 M/UL (4.20-5.40) L Hemoglobin 8.8 G/DL (12.0-16.0) L Hematocrit 26.0 % (37.0-47.0) L Mean Corpuscular Volume 92 FL (80-99) Mean Corpuscular Hemoglobin 31.3 PG (27.0-31.0) H Mean Corpuscular Hemoglobin Concent 34.0 G/DL (32.0-36.0) Red Cell Distribution Width 18.8 % (11.6-14.8) H Platelet Count 90 K/UL (150-450) L Mean Platelet Volume 9.0 FL (6.5-10.1) Neutrophils (%) (Auto) % (45.0-75.0) Lymphocytes (%) (Auto) % (20.0-45.0) Monocytes (%) (Auto) % (1.0-10.0) Eosinophils (%) (Auto) % (0.0-3.0) Basophils (%) (Auto) % (0.0-2.0) Differential Total Cells Counted 100 Neutrophils % (Manual) 92 % (45-75) H Lymphocytes % (Manual) 5 % (20-45) L Monocytes % (Manual) 3 % (1-10) Eosinophils % (Manual) 0 % (0-3) Basophils % (Manual) 0 % (0-2) Band Neutrophils 0 % (0-8) Platelet Estimate Decreased L Platelet Morphology Normal Hypochromasia 1+ Anisocytosis 2+ Sodium Level 151 MMOL/L (136-145) H Potassium Level 2.6 MMOL/L (3.5-5.1) *L Chloride Level 115 MMOL/L (98-107) H Carbon Dioxide Level 30 MMOL/L (21-32) Anion Gap 5 mmol/L (5-15) Blood Urea Nitrogen 25 mg/dL (7-18) H Creatinine 0.7 MG/DL (0.55-1.30) Estimat Glomerular Filtration Rate > 60 mL/min (>60) Glucose Level 132 MG/DL (74-106) H Calcium Level 7.7 MG/DL (8.5-10.1) L Phosphorus Level 3.0 MG/DL (2.5-4.9) Magnesium Level 1.7 MG/DL (1.8-2.4) L Total Bilirubin 0.6 MG/DL (0.2-1.0) Aspartate Amino Transf (AST/SGOT) 23 U/L (15-37) Alanine Aminotransferase (ALT/SGPT) 32 U/L (12-78) Alkaline Phosphatase 43 U/L (46-116) L Total Protein 4.6 G/DL (6.4-8.2) L Albumin 1.2 G/DL (3.4-5.0) L Globulin 3.4 g/dL Albumin/Globulin Ratio 0.4 (1.0-2.7) L POC Whole Blood Glucose 153 MG/DL (74-106) H Elayne Allred MD Jun 28, 2020 10:15
--- NOTE | 2020-06-28 10:30 | NUR ---
NURSE NOTES: K level 2.6,K replacement given,pt will need 60 MEQ KCL IVPB per JODY PICC LINE.
[2020-06-28] MEDS: DOPamine 400mg/250ml 250 ML IV SCH (10:46)
--- NOTE | 2020-06-28 11:35 | NUR ---
NURSE NOTES: Dr Pitt at bedside,updated re pt's status and low Phos level.
--- NOTE | 2020-06-28 12:00 | NUR ---
NURSE NOTES: Oral care done ,turned to LT side ,pulled up and kept HOB elevated 30 degrees.
--- NOTE | 2020-06-28 12:18 | Nephrology Progress Note ---
Assessment/Plan Problem List: (1) LEANN (acute kidney injury) (2) Respiratory failure requiring intubation (3) Down's syndrome (4) Seizure disorder (5) Hypothyroidism Assessment Acute renal failure, likely due to hypotension Acute respiratory distress, hypoxia Seizure disorder Hypothyroidism Down syndrome Full code Fluid challenge with IV fluids and albumin Midodrine for BP above 100 systolic Check TSH level Check Correct level Monitor renal parameters Urine studies Per orders Plan June 28: Labs reviewed. Serum potassium again low today. Potassium supplement IV and through GT given. Patient remains full code and is on ventilator. Continue per consultants. Continue to monitor electrolytes and renal parameters. June 27: Labs reviewed. Abnormal electrolyte addressed. Remains full code. Remains vented. June 26: Day 27 of hospitalization. Full code. Labs reviewed. Hemoglobin down to 7.5. Electrolyte abnormalities addressed and corrections ordered. Continue to monitor renal parameters. Continue per consultants. Start on Levemir for blood sugar management. Questioning continuation of hydrocortisone? June 25: Labs reviewed. Potassium, phosphorus, hemoglobin, are all low. Potassium and phosphorus IV replacement given. Continue to monitor electrolytes and CBC. Patient remains full code. June 24: Lab reviewed. Low phosphorus low magnesium and low potassium was addressed. Hemoglobin drifting lower. Continue per consultants. Patient remains full code. June 23: Labs reviewed. Patient continues to be on ventilator. D5W for high sodium and also potassium chloride intravenously as supplement given. Hemoglobin 8.4. Continue to monitor electrolytes and renal parameters. June 22: Labs reviewed. Low potassium and high sodium noted. Hemoglobin 8.1 stable. Aim to correct abnormal electrolyte. Continue rest. Will give 2 boluses of D5W 500 cc. June 21: Lab reviewed. Abnormal electrolytes noted and addressed. June 20: Labs reviewed. Potassium supplement given. Patient remains full code. Continue per consultants. June 19: Lab reviewed. Electrolyte abnormalities addressed. Continue per pulmonary and ID. June 18: Lab reviewed. Status unchanged. Serum sodium 151 unchanged. Stable from renal standpoint of view. June 17: Labs reviewed. Status quo. D5W 500 cc IV ordered. Continue to monitor renal parameters. June 16: Status quo. Labs reviewed. Overall condition unchanged. Patient was transfused and hemoglobin higher. Continue current management. Patient remains full code. June 15: Status quo. Overall condition poor. Very low albumin. Edematous. Hypotensive. Hemoglobin lower. Anemia work-up ordered. I favor transfusion 2 units of packed RBCs. Patient remains full code. I favor supportive care only. Will discuss. June 14: Electrolyte abnormalities addressed. Serum creatinine lower. Continue per current management. June 13: Status unchanged. Lab reviewed. Serum potassium 2.7. IV potassium chloride ordered. Serum creatinine low at 1.6 stable. Blood pressure 90s systolic June 12: Status quo. Labs reviewed. Renal parameters stable. Serum creatinine down to 1.6. Medication list reviewed. Continues to be on midodrine. Continue per consultants. June 11: Status quo. Labs reviewed. Electrolytes adjusted. Serum creatinine down to 1.8. Continue per consultants. June 10: Status quo. Labs reviewed. Phosphorus supplement IV given. Serum creatinine 2. Continue per consultants. June 09: Requires less pressors. Albumin bolus given. 1 dose of Lasix IV ordered as the patient severely edematous. Patient serum albumin is very low. Continue per consultants. June 08: Continues to be intubated. Labs reviewed. Serum creatinine 1.9 unchanged. Blood pressure more stable. Off 1 of the pressors. Continue to monitor renal parameters. Continue per consultants. Patient now on hydrocortisone 100 mg every 8 hours. Will decrease IV fluid. Normal saline down to 50 cc an hour. June 07: Intubated. Labs reviewed. Creatinine 1.9 unchanged. Continue same treatment plan. Per consultants. Overall poor prognosis since the patient remains on pressors and her pulmonary status is worsening. June 06: Remains intubated. Labs reviewed. Creatinine 1.9. Blood pressure systolic 90s. Continue per consultants. June 05: Remains intubated. Labs reviewed. Serum creatinine lower to 2. Vancomycin level lower. Remains hypotensive on pressors. Will increase midodrine to 10 mg every 8 hours. Continue per consultants. Continue to monitor renal parameters. June 04: Patient now in ICU. Intubated. On pressors. Labs reviewed. Will increase midodrine. Aim to keep blood pressure over 100 systolic. Will give albumin bolus. Will check vancomycin level which was elevated when checked previously on June 01. Will monitor renal parameters. Continue per consultants. Subjective ROS Limited/Unobtainable: Yes Objective Objective Last 24 Hour Vital Signs Date Time Temp Pulse Resp B/P (MAP) Pulse Ox O2 Delivery O2 Flow Rate FiO2 06/28/20 11:03 40 26 85 06/28/20 11:00 41 26 119/61 (80) 96 06/28/20 10:46 149/61 06/28/20 10:00 44 26 139/70 (93) 97 06/28/20 09:00 46 26 124/57 (79) 97 06/28/20 08:00 45 06/28/20 08:00 47 06/28/20 08:00 85 06/28/20 08:00 97.5 46 29 149/61 (90) 97 06/28/20 08:00 Mechanical Ventilator Mechanical Ventilator 06/28/20 07:45 122/57 06/28/20 07:28 49 26 85 06/28/20 07:00 44 42 126/58 (80) 99 06/28/20 06:00 97.2 52 29 122/57 (78) 99 06/28/20 05:00 47 46 113/55 (74) 93 06/28/20 04:00 Mechanical Ventilator Mechanical Ventilator 06/28/20 04:00 47 06/28/20 04:00 46 29 99 06/28/20 04:00 85 06/28/20 03:25 47 26 85 06/28/20 03:00 47 30 126/65 (85) 100 06/28/20 02:00 43 26 140/59 (86) 100 06/28/20 01:00 41 26 136/68 (90) 99 06/28/20 00:00 98.2 42 26 152/69 (96) 99 06/28/20 00:00 85 06/28/20 00:00 Mechanical Ventilator Mechanical Ventilator 06/27/20 23:00 43 26 144/79 (100) 100 06/27/20 22:55 40 26 85 06/27/20 22:00 46 26 157/65 (95) 100 06/27/20 21:00 53 26 128/57 (80) 100 20 20:00 Mechanical Ventilator Mechanical Ventilator 06/27/20 20:00 48 06/27/20 20:00 98.8 52 26 135/62 (86) 100 20 20:00 85 06/27/20 19:31 42 26 85 06/27/20 19:00 43 26 145/68 (93) 100 06/27/20 18:00 46 25 129/70 (89) 100 06/27/20 17:00 67 31 138/84 (102) 98 06/27/20 16:00 Mechanical Ventilator Mechanical Ventilator 06/27/20 16:00 85 06/27/20 16:00 98.1 49 42 137/70 (92) 98 06/27/20 15:28 45 06/27/20 15:20 52 26 85 06/27/20 15:00 53 35 131/62 (85) 95 06/27/20 14:00 53 43 112/61 (78) 94 06/27/20 13:00 49 48 98/53 (68) 96 Intake and Output 06/27/20 06/28/20 19:00 07:00 Intake Total 950 ml 600 ml Output Total 1435 ml 650 ml Balance -485 ml -50 ml IV Total 300 ml Tube Feeding 650 ml 600 ml Output Urine Total 1335 ml 600 ml Stool Total 100 ml 50 ml Laboratory Tests 06/28/20 05:10: White Blood Count 12.4H, Red Blood Count 2.83L, Hemoglobin 8.8L, Hematocrit 26.0L, Mean Corpuscular Volume 92, Mean Corpuscular Hemoglobin 31.3H, Mean Corpuscular Hemoglobin Concent 34.0, Red Cell Distribution Width 18.8H, Platelet Count 90L, Mean Platelet Volume 9.0, Neutrophils (%) (Auto) , Lymphocytes (%) (Auto) , Monocytes (%) (Auto) , Eosinophils (%) (Auto) , Basophils (%) (Auto) , Differential Total Cells Counted 100, Neutrophils % (Manual) 92H, Lymphocytes % (Manual) 5L, Monocytes % (Manual) 3, Eosinophils % (Manual) 0, Basophils % (Manual) 0, Band Neutrophils 0, Platelet Estimate DecreasedL, Platelet Morphology Normal, Hypochromasia 1+, Anisocytosis 2+, Sodium Level 151H, Potassium Level 2.6*L, Chloride Level 115H, Carbon Dioxide Level 30, Anion Gap 5, Blood Urea Nitrogen 25H, Creatinine 0.7, Estimat Glomerular Filtration Rate > 60, Glucose Level 132H, Calcium Level 7.7L, Phosphorus Level 3.0, Magnesium Level 1.7L, Total Bilirubin 0.6, Aspartate Amino Transf (AST/SGOT) 23, Alanine Aminotransferase (ALT/SGPT) 32, Alkaline Phosphatase 43L, Total Protein 4.6L, Albumin 1.2L, Globulin 3.4, Albumin/Globulin Ratio 0.4L 06/28/20 09:06: POC Whole Blood Glucose 153H Height (Feet): 5 Height (Inches): 3.00 Weight (Pounds): 172 General Appearance: no apparent distress EENT: other - Remains intubated on ventilator Cardiovascular: tachycardia Respiratory/Chest: decreased breath sounds Abdomen: distended Keron Pitt MD Jun 28, 2020 12:18
--- NOTE | 2020-06-28 15:00 | NUR ---
NURSE NOTES: Pt awake on and off ,noted no resp distress,always Bradycardic thru out the shift.
--- NOTE | 2020-06-28 17:00 | NUR ---
NURSE NOTES: Rectal tube came out ,bed bath given, liquid stools for OB collected, and sent to lab ,stools very aromatic in odor.
--- NOTE | 2020-06-28 17:01 | Internal Med Progress Note ---
Subjective Date of Service: Jun 28, 2020 Physician Name Joni Copeland Attending Physician Elayne Allred MD Current Medications Medications (Trade) Dose Ordered Sig/Katy Route PRN Reason Start Time Stop Time Status Last Admin Dose Admin Acetaminophen (Tylenol) 650 mg Q4H PRN GT FEVER 06/03/20 11:45 07/03/20 11:44 06/26/20 12:48 Chlorhexidine Gluconate (Alla-Hex 2%) 1 applic DAILY@2000 TOPIC 06/08/20 20:00 09/06/20 19:59 06/27/20 20:55 Clotrimazole (Lotrimin) 1 applic Q12HR TOPIC 06/07/20 13:00 09/05/20 12:59 06/28/20 09:09 Dextrose (Dextrose 50%) 25 ml Q30M PRN IV Hypoglycemia 06/03/20 11:30 08/28/20 11:29 Dextrose (Dextrose 50%) 50 ml Q30M PRN IV Hypoglycemia 06/03/20 11:30 08/28/20 11:29 Dopamine HCl/ Dextrose 250 ml @ 0 mls/hr Q24H IV 06/12/20 11:15 09/10/20 11:14 06/14/20 19:47 Hydrocortisone (Solu-CORTEF) 100 mg EVERY 8 HOURS IV 06/07/20 14:00 09/05/20 13:59 06/28/20 13:07 Insulin Aspart (NovoLOG) Q6HR SUBQ 06/26/20 12:00 09/24/20 11:59 06/28/20 00:14 Insulin Detemir (Levemir) 10 units Q12HR SUBQ 06/26/20 10:00 09/24/20 09:59 06/28/20 09:11 Levothyroxine Sodium (Synthroid) 75 mcg DAILY GT 06/04/20 09:00 06/30/20 08:59 06/28/20 09:10 Loperamide HCl (Imodium) 2 mg Q6H PRN NG Diarrhea 06/24/20 10:30 07/24/20 10:29 Midodrine (Pro-Amatine) 10 mg Q8HR GT 06/05/20 14:00 09/03/20 13:59 06/28/20 13:07 Norepinephrine Bitartrate 16 mg/ Dextrose 500 ml @ 0 mls/hr Q24H IV 06/08/20 07:45 07/07/20 12:59 06/12/20 08:43 Ondansetron HCl (Zofran) 4 mg Q6H PRN IVP Nausea & Vomiting 06/03/20 12:00 06/29/20 11:59 Pantoprazole (Protonix) 40 mg DAILY IV 06/04/20 09:00 06/30/20 08:59 06/28/20 09:10 Phenylephrine HCl 50 mg/Dextrose 250 ml @ 0 mls/hr Q24H PRN IV For hypotension 06/06/20 17:45 07/06/20 17:44 06/08/20 01:49 Polyethylene Glycol (Miralax) 17 gm DAILYPRN PRN GT Constipation 06/03/20 12:00 06/29/20 11:59 Potassium Chloride (K-Dur) 40 meq TWICE A DAY GT 06/28/20 12:15 09/26/20 12:14 06/28/20 13:17 Valproic Acid (Depakene) 500 mg EVERY 8 HOURS GT 06/03/20 14:00 06/29/20 21:59 06/28/20 13:07 Allergies: Coded Allergies: No Known Allergies (Unverified , 10/16/18) ROS Limited/Unobtainable: Yes Subjective 59 YO F with Down's syndrome admitted with hypoxia. Now sepsis and pneumonia. Cover for Int Arturo-DR Hawk. ICU. Intubated and sedated Objective Last Vital Signs Date Time Temp Pulse Resp B/P (MAP) Pulse Ox O2 Delivery O2 Flow Rate FiO2 06/28/20 16:00 47 06/28/20 16:00 96.8 30 143/70 (94) 98 06/28/20 16:00 Mechanical Ventilator Mechanical Ventilator 06/28/20 16:00 85 Laboratory Tests Test 06/28/20 05:10 06/28/20 09:06 White Blood Count 12.4 K/UL (4.8-10.8) H Red Blood Count 2.83 M/UL (4.20-5.40) L Hemoglobin 8.8 G/DL (12.0-16.0) L Hematocrit 26.0 % (37.0-47.0) L Mean Corpuscular Volume 92 FL (80-99) Mean Corpuscular Hemoglobin 31.3 PG (27.0-31.0) H Mean Corpuscular Hemoglobin Concent 34.0 G/DL (32.0-36.0) Red Cell Distribution Width 18.8 % (11.6-14.8) H Platelet Count 90 K/UL (150-450) L Mean Platelet Volume 9.0 FL (6.5-10.1) Neutrophils (%) (Auto) % (45.0-75.0) Lymphocytes (%) (Auto) % (20.0-45.0) Monocytes (%) (Auto) % (1.0-10.0) Eosinophils (%) (Auto) % (0.0-3.0) Basophils (%) (Auto) % (0.0-2.0) Differential Total Cells Counted 100 Neutrophils % (Manual) 92 % (45-75) H Lymphocytes % (Manual) 5 % (20-45) L Monocytes % (Manual) 3 % (1-10) Eosinophils % (Manual) 0 % (0-3) Basophils % (Manual) 0 % (0-2) Band Neutrophils 0 % (0-8) Platelet Estimate Decreased L Platelet Morphology Normal Hypochromasia 1+ Anisocytosis 2+ Sodium Level 151 MMOL/L (136-145) H Potassium Level 2.6 MMOL/L (3.5-5.1) *L Chloride Level 115 MMOL/L (98-107) H Carbon Dioxide Level 30 MMOL/L (21-32) Anion Gap 5 mmol/L (5-15) Blood Urea Nitrogen 25 mg/dL (7-18) H Creatinine 0.7 MG/DL (0.55-1.30) Estimat Glomerular Filtration Rate > 60 mL/min (>60) Glucose Level 132 MG/DL (74-106) H Calcium Level 7.7 MG/DL (8.5-10.1) L Phosphorus Level 3.0 MG/DL (2.5-4.9) Magnesium Level 1.7 MG/DL (1.8-2.4) L Total Bilirubin 0.6 MG/DL (0.2-1.0) Aspartate Amino Transf (AST/SGOT) 23 U/L (15-37) Alanine Aminotransferase (ALT/SGPT) 32 U/L (12-78) Alkaline Phosphatase 43 U/L (46-116) L Total Protein 4.6 G/DL (6.4-8.2) L Albumin 1.2 G/DL (3.4-5.0) L Globulin 3.4 g/dL Albumin/Globulin Ratio 0.4 (1.0-2.7) L POC Whole Blood Glucose 153 MG/DL (74-106) H Microbiology Date/Time Source Procedure Growth Status 06/27/20 16:34 Urine,Clean Catch Urine Culture - Preliminary NO GROWTH Resulted 06/27/20 16:34 Sputum Gram Stain - Final Resulted 06/27/20 16:34 Sputum Sputum Culture - Preliminary NO GROWTH Resulted Intake and Output 06/27/20 06/28/20 19:00 07:00 Intake Total 950 ml 600 ml Output Total 1435 ml 650 ml Balance -485 ml -50 ml IV Total 300 ml Tube Feeding 650 ml 600 ml Output Urine Total 1335 ml 600 ml Stool Total 100 ml 50 ml Objective General Appearance: WD/WN, no apparent distress, alert EENT: PERRL/EOMI, normal ENT inspection Neck: non-tender, normal alignment, supple, normal inspection Cardiovascular: normal peripheral pulses, normal rate, regular rhythm, no gallop/murmur, no JVD Respiratory/Chest: Mech vent; decreased breath sounds, crackles/rales, rhonchi - bilaterally, expiratory wheezing Abdomen: normal bowel sounds, non tender, soft, no organomegaly, no mass Extremities: normal range of motion Neurologic: slider assembler II-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 Continue amikacin per ID=Dr Camejo. Pulmonary/Critical care=DR Allred. COVID NEG (2) Sepsis Assessment & Plan: Staph haemolyticus. Continue amikacin per ID=Dr Camejo (3) Down's syndrome (4) Dysphagia Assessment & Plan: S/P PEG (5) Seizure disorder Assessment & Plan: Continue keppra and depakote (6) Hypothyroidism Assessment & Plan: Continue synthroid (7) Acute respiratory failure Assessment & Plan: Pulmonary = Dr Allred; mech vent Joni Copeland MD Jun 28, 2020 17:01
--- NOTE | 2020-06-28 18:00 | NUR ---
NURSE NOTES: Reinserted Rectal tube ,draining liquid brown stools.Turned to Lt side with Rt side up.
--- NOTE | 2020-06-28 19:11 | NUR ---
NURSE HAND-OFF REPORT: Latest Vital Signs: Temperature 96.8 , Pulse 44 , B/P 135 /60 , Respiratory Rate 26 , O2 SAT 100 , Mechanical Ventilator, O2 Flow Rate 15.0 . Vital Sign Comment: stable EKG Rhythm: Sinus Bradycardia Rhythm change?: N MD Notified?: -N aware MD Response: Latest Osorio Fall Score: 70 Fall Risk: High Risk Safety Measures: Call light Within Reach, Bed Alarm Zone 1, Side Rails Side Rails x3, Bed position Low and Locked. Fall Precautions: Yellow Socks Door Sign Patient Fall Education Report given to Tj LUJAN.
--- NOTE | 2020-06-28 19:42 | NUR ---
NURSE NOTES: received report from esperanza rivera pt orally intubated -vent o2sat 100% hr 48 TOLERATING TUBE FEEDING NO RESIDUAL URINARY OUTPUT 50CC/HR IV SITE PATENT INFUSING TKO REPOSITION AND SUCTION
--- NOTE | 2020-06-28 20:03 | Cardiology Progress Note ---
Assessment/Plan Problem List: (1) Diarrhea (2) Anemia (3) Hypernatremia (4) Hypokalemia (5) Down's syndrome (6) Acute respiratory failure (7) Pneumonia (8) Respiratory failure requiring intubation Status: stable, not improved, unchanged Status Narrative Pt w/ Down's syndrome, admitted w/ pneumonia, respiratory failure. previous s epi bacteremia. Covid negative She has sinus bradycardia, while sedated, without hemodynamic compromise. Diarrhea - ? cause. C diff negative Has hypokalemia, hypernatrema, due to diarrhea, vol depletion. Assessment/Plan continue free water and K supplementation Check stool guiacs. Evaluation for cause of diarrhea per primary team continue iv abx per ID, Wean Fi02, as tolerated. . . Subjective ROS Limited/Unobtainable: Yes Subjective Cardiology for Dr. Pantoja Intubated, opens eyes to voice Objective Last 24 Hour Vital Signs Date Time Temp Pulse Resp B/P (MAP) Pulse Ox O2 Delivery O2 Flow Rate FiO2 06/28/20 19:08 44 26 85 06/28/20 19:03 42 26 135/60 (85) 100 06/28/20 18:00 45 23 116/54 (74) 100 06/28/20 18:00 51 28 89/56 (67) 100 06/28/20 17:00 48 141/69 (93) 99 06/28/20 17:00 48 26 141/69 (93) 100 06/28/20 16:00 47 06/28/20 16:00 96.8 44 30 143/70 (94) 98 06/28/20 16:00 Mechanical Ventilator Mechanical Ventilator 06/28/20 16:00 45 06/28/20 16:00 85 06/28/20 15:00 48 20 138/69 (92) 97 06/28/20 14:56 64 26 85 06/28/20 14:00 44 20 117/58 (77) 97 06/28/20 13:00 51 20 117/56 (76) 97 06/28/20 12:00 85 06/28/20 12:00 47 06/28/20 12:00 98.2 48 18 123/59 (80) 98 06/28/20 12:00 Mechanical Ventilator Mechanical Ventilator 06/28/20 11:03 40 26 85 06/28/20 11:00 41 26 119/61 (80) 96 06/28/20 10:46 149/61 06/28/20 10:00 44 26 139/70 (93) 97 06/28/20 09:00 46 26 124/57 (79) 97 06/28/20 08:00 45 06/28/20 08:00 47 06/28/20 08:00 85 06/28/20 08:00 97.5 46 29 149/61 (90) 97 06/28/20 08:00 Mechanical Ventilator Mechanical Ventilator 06/28/20 07:45 122/57 06/28/20 07:28 49 26 85 06/28/20 07:00 44 42 126/58 (80) 99 06/28/20 06:00 97.2 52 29 122/57 (78) 99 06/28/20 05:00 47 46 113/55 (74) 93 06/28/20 04:00 Mechanical Ventilator Mechanical Ventilator 06/28/20 04:00 47 06/28/20 04:00 46 29 99 06/28/20 04:00 85 06/28/20 03:25 47 26 85 06/28/20 03:00 47 30 126/65 (85) 100 06/28/20 02:00 43 26 140/59 (86) 100 06/28/20 01:00 41 26 136/68 (90) 99 06/28/20 00:00 98.2 42 26 152/69 (96) 99 06/28/20 00:00 85 06/28/20 00:00 Mechanical Ventilator Mechanical Ventilator 06/27/20 23:00 43 26 144/79 (100) 100 06/27/20 22:55 40 26 85 06/27/20 22:00 46 26 157/65 (95) 100 06/27/20 21:00 53 26 128/57 (80) 100 06/27/20 20:00 Mechanical Ventilator Mechanical Ventilator 06/27/20 20:00 48 06/27/20 20:00 98.8 52 26 135/62 (86) 100 06/27/20 20:00 85 General Appearance: on vent EENT: PERRL/EOMI, other - ET tube Neck: no JVD Rhythm: NSR Cardiovascular: normal rate, regular rhythm, no gallop/murmur Respiratory/Chest: other - occ rhonchi Abdomen: non tender, soft, other - + g tube Extremities: moderate edema - 1-2+ peripheral edema bilat Intake and Output 06/27/20 06/28/20 19:00 07:00 Intake Total 950 ml 600 ml Output Total 1435 ml 650 ml Balance -485 ml -50 ml IV Total 300 ml Tube Feeding 650 ml 600 ml Output Urine Total 1335 ml 600 ml Stool Total 100 ml 50 ml Laboratory Tests Test 06/28/20 05:10 06/28/20 09:06 06/28/20 18:00 White Blood Count 12.4 K/UL (4.8-10.8) H Red Blood Count 2.83 M/UL (4.20-5.40) L Hemoglobin 8.8 G/DL (12.0-16.0) L Hematocrit 26.0 % (37.0-47.0) L Mean Corpuscular Volume 92 FL (80-99) Mean Corpuscular Hemoglobin 31.3 PG (27.0-31.0) H Mean Corpuscular Hemoglobin Concent 34.0 G/DL (32.0-36.0) Red Cell Distribution Width 18.8 % (11.6-14.8) H Platelet Count 90 K/UL (150-450) L Mean Platelet Volume 9.0 FL (6.5-10.1) Neutrophils (%) (Auto) % (45.0-75.0) Lymphocytes (%) (Auto) % (20.0-45.0) Monocytes (%) (Auto) % (1.0-10.0) Eosinophils (%) (Auto) % (0.0-3.0) Basophils (%) (Auto) % (0.0-2.0) Differential Total Cells Counted 100 Neutrophils % (Manual) 92 % (45-75) H Lymphocytes % (Manual) 5 % (20-45) L Monocytes % (Manual) 3 % (1-10) Eosinophils % (Manual) 0 % (0-3) Basophils % (Manual) 0 % (0-2) Band Neutrophils 0 % (0-8) Platelet Estimate Decreased L Platelet Morphology Normal Hypochromasia 1+ Anisocytosis 2+ Sodium Level 151 MMOL/L (136-145) H Potassium Level 2.6 MMOL/L (3.5-5.1) *L Chloride Level 115 MMOL/L (98-107) H Carbon Dioxide Level 30 MMOL/L (21-32) Anion Gap 5 mmol/L (5-15) Blood Urea Nitrogen 25 mg/dL (7-18) H Creatinine 0.7 MG/DL (0.55-1.30) Estimat Glomerular Filtration Rate > 60 mL/min (>60) Glucose Level 132 MG/DL (74-106) H Calcium Level 7.7 MG/DL (8.5-10.1) L Phosphorus Level 3.0 MG/DL (2.5-4.9) Magnesium Level 1.7 MG/DL (1.8-2.4) L Total Bilirubin 0.6 MG/DL (0.2-1.0) Aspartate Amino Transf (AST/SGOT) 23 U/L (15-37) Alanine Aminotransferase (ALT/SGPT) 32 U/L (12-78) Alkaline Phosphatase 43 U/L (46-116) L Total Protein 4.6 G/DL (6.4-8.2) L Albumin 1.2 G/DL (3.4-5.0) L Globulin 3.4 g/dL Albumin/Globulin Ratio 0.4 (1.0-2.7) L POC Whole Blood Glucose 153 MG/DL (74-106) H Stool Occult Blood Pending Microbiology Date/Time Source Procedure Growth Status 06/27/20 16:34 Urine,Clean Catch Urine Culture - Preliminary NO GROWTH Resulted 06/27/20 16:34 Sputum Gram Stain - Final Resulted 06/27/20 16:34 Sputum Sputum Culture - Preliminary NO GROWTH Resulted Brooke Isaacs MD Jun 28, 2020 20:03
[2020-06-28] MEDS: Dyna-Hex 2% Top Sol 2oz TOPIC SCH (20:59)
--- NOTE | 2020-06-28 22:00 | NUR ---
NURSE NOTES: reposition and suction
[2020-06-29] VITALS (26 sets, daily range): BP systolic 78–165; BP diastolic 36–93
--- NOTE | 2020-06-29 | NUR ---
NURSE NOTES:pt having resp distress tv 0 peep pressure 70 ett ballon basted resp tech suction and ett flush and dr chapa was call and al 4x did not anser all caii nursing paint roller covers supervisor and charge nurse was notify resp tech able to in>[id number] pt able open eyes to touch vs stable
[2020-06-29] MEDS: NovoLOG Insulin Flexpen SUBQ SCH ×4 (00:27→17:30)
--- NOTE | 2020-06-29 04:00 | NUR ---
NURSE NOTES: complete bed bath oral care wound care done suction and reposition
[2020-06-29] MEDS: Midodrine 10mg tab GT SCH ×3 (05:20→21:48)
[2020-06-29] MEDS: Hydrocortisone 100mg Inj IV SCH ×3 (05:20→21:48)
[2020-06-29] MEDS: Valproic Acid 250mg/5ml Liquid GT SCH ×2 (05:20→13:39)
--- NOTE | 2020-06-29 06:30 | NUR ---
NURSE NOTES: dr mayes call back [phone] [id number] dr mayes will er md to reintubate
[2020-06-29 06:40] LABS: HEMATOCRIT 26.2 % (37.0-47.0); HEMOGLOBIN 8.7 G/DL (12.0-16.0); MEAN CORPUSCULAR VOLUME 93 FL (80-99); PLATELET COUNT 89 K/UL (150-450); RED CELL DISTRIBUTION WIDTH 19.4 % (11.6-14.8); WHITE BLOOD COUNT 12.4 K/UL (4.8-10.8)
--- NOTE | 2020-06-29 07:00 | NUR ---
NURSE HAND-OFF REPORT: Latest Vital Signs: Temperature 98.5 , Pulse 55 , B/P 146 /64 , Respiratory Rate 24 , O2 SAT 98 , Mechanical Ventilator, O2 Flow Rate 15.0 . Vital Sign Comment: EKG Rhythm: Sinus Bradycardia Rhythm change?: N Notified?: -sugey PRAKASH Response: at 06 Latest Osorio Fall Score: 70 Fall Risk: High Risk Safety Measures: Call light Within Reach, Bed Alarm Zone 1, Side Rails Side Rails x3, Bed position Low and Locked. Fall Precautions: Yellow Socks Door Sign Patient Fall Education Report given to matt rivera using sbar.
--- NOTE | 2020-06-29 07:30 | NUR ---
NURSE NOTES: Pt received from TAI Ash at 0730. Pt opens eyes spontaneously; does not follow commands; withdraws to pain; bilat pupils equal and round 3 mm with brisk rxn to light. Pt is SR to awake overnight monitor with 1+ radial and dorsalis pedis pulses present. Pt is afebrile at this time. Pt received mechanically ventilated with 7.5 ETT noted 24 cm at the lip with the following settings: AC 26 TV 500 FiO2 70% Peep 10- All lung sounds noted diminished upon auscultation. Pt is pending CXR for recent ETT placement. Abd is round, large, and slightly firm to palpation with active bowel sounds to all quadrants. GT noted running Vital at 50 cc/gr without gastric residuals noted at this time. F/C noted draining yellow urine. Skin alterations noted. Pt has a JODY PICC with dry and intact dressing running NS TKO at 5 cc/hr. Bed in lowest position, alarm on, side rails up x 2 and padded per seizure precaution, call light within reach. Will continue to monitor.
[2020-06-29 07:33] LABS: ALANINE AMINOTRANSFERASE 25 U/L (12-78); ALBUMIN 1.2 G/DL (3.4-5.0); ALBUMIN/GLOBULIN RATIO 0.4 (1.0-2.7); ALKALINE PHOSPHATASE 46 U/L (46-116); ANION GAP 9 mmol/L (5-15); ASPARTATE AMINO TRANSFERASE 19 U/L (15-37); BILIRUBIN,TOTAL 0.5 MG/DL (0.2-1.0); BLOOD UREA NITROGEN 26 mg/dL (7-18); CALCIUM 7.6 MG/DL (8.5-10.1); CARBON DIOXIDE 27 MMOL/L (21-32); CHLORIDE 115 MMOL/L (98-107); CREATININE 0.8 MG/DL (0.55-1.30); PHOSPHORUS 2.1 MG/DL (2.5-4.9); POTASSIUM 3.5 MMOL/L (3.5-5.1); SODIUM 150 MMOL/L (136-145)
[2020-06-29] MEDS: Norepinephrine Bitartrate 16 MG in D5W 500ml 484 ML IV SCH (07:45)
--- NOTE | 2020-06-29 08:30 | NUR ---
NURSE NOTES: ABG results relayed tro Dr Allred. FiO2 increased to 100% at this time. No new orders received.
[2020-06-29] MEDS: Pantoprazole Inj IV SCH (08:56)
[2020-06-29] MEDS: Levemir Flexpen SUBQ SCH ×2 (09:05→20:48)
[2020-06-29] MEDS ORDERED: NS 275ml ONE (09:45)
[2020-06-29] MEDS ORDERED: Tubing Blood Filter IV ONE (09:45)
[2020-06-29] MEDS ORDERED: Potassium Phosphate 20 MM in NS 275 ML IV ONE (10:00)
--- NOTE | 2020-06-29 10:00 | NUR ---
NURSE NOTES: Dr Allred assessing pt at bedside. ABGs and labs for today reviewed. SBP noted in 70s. Order received to bolus 1 liter NS IV. Bolus initiated at this time.
--- NOTE | 2020-06-29 10:19 | Pulmonolgy Critical Care Note ---
Critical Care - Asmt/Plan Problems: (1) Acute respiratory failure (2) Bacteremia (3) Pneumonia (4) Sepsis (5) HCAP (healthcare-associated pneumonia) (6) Seizure disorder (7) Down's syndrome Respiratory: monitor respiratory rate, adjust FIO2, CXR Cardiac: continue pressors, continue to monitor HR/BP Renal: F/U I&O, keep IV fluid, check electrolytes Infectious Disease: check cultures, continue antibiotics Gastrointestinal: continue feedings/current rate Endocrine: monitor blood sugar Hematologic: monitor H/H, transfuse if hgb<8.5 Neurologic: PRN Ativan, keep patient comfortable Affect: PRN ativan Prophylaxis: Protonix Time Spent (Minutes): 40 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, 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 Discussed with: nurses, 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, 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 - Objective Last 24 Hour Vital Signs Date Time Temp Pulse Resp B/P (MAP) Pulse Ox O2 Delivery O2 Flow Rate FiO2 06/29/20 07:45 142/84 06/29/20 07:29 74 26 100 06/29/20 07:00 53 26 142/84 (103) 94 06/29/20 07:00 53 26 142/84 (103) 94 06/29/20 06:00 55 24 146/64 (91) 98 06/29/20 05:00 58 24 118/66 (83) 98 06/29/20 04:00 Mechanical Ventilator Mechanical Ventilator 06/29/20 04:00 98.5 56 25 119/91 (100) 99 06/29/20 04:00 85 06/29/20 04:00 56 06/29/20 03:00 46 26 142/83 (102) 99 06/29/20 02:59 46 26 70 06/29/20 02:00 42 26 126/61 (82) 100 06/29/20 01:00 54 26 131/55 (80) 97 06/29/20 00:00 65 45 99/57 (71) 99 06/29/20 00:00 Mechanical Ventilator Mechanical Ventilator 06/28/20 23:00 51 25 140/73 (95) 100 06/28/20 22:57 51 26 70 06/28/20 22:00 44 26 119/63 (81) 100 06/28/20 21:00 56 21 127/58 (81) 100 06/28/20 20:00 85 06/28/20 20:00 Mechanical Ventilator Mechanical Ventilator 06/28/20 20:00 97.8 49 23 145/65 (91) 100 06/28/20 20:00 48 06/28/20 19:08 44 26 85 06/28/20 19:03 42 26 135/60 (85) 100 06/28/20 18:00 45 23 116/54 (74) 100 06/28/20 18:00 51 28 89/56 (67) 100 06/28/20 17:00 48 141/69 (93) 99 06/28/20 17:00 48 26 141/69 (93) 100 06/28/20 16:00 47 06/28/20 16:00 96.8 44 30 143/70 (94) 98 06/28/20 16:00 Mechanical Ventilator Mechanical Ventilator 06/28/20 16:00 45 06/28/20 16:00 85 06/28/20 15:00 48 20 138/69 (92) 97 06/28/20 14:56 64 26 85 06/28/20 14:00 44 20 117/58 (77) 97 06/28/20 13:00 51 20 117/56 (76) 97 06/28/20 12:00 85 06/28/20 12:00 47 06/28/20 12:00 98.2 48 18 123/59 (80) 98 06/28/20 12:00 Mechanical Ventilator Mechanical Ventilator 06/28/20 11:03 40 26 85 06/28/20 11:00 41 26 119/61 (80) 96 06/28/20 10:46 149/61 Status: awake Condition: critical HEENT: atraumatic Neck: full ROM Lungs: clear Heart: HR/BP stable, HR/BP unstable Abdomen: soft, non-tender Extremities: no C/C/E, edema Decubiti: location Micro: Microbiology Date/Time Source Procedure Growth Status 06/27/20 16:34 Urine,Clean Catch Urine Culture - Final NO GROWTH AFTER 48 HOURS Complete 06/27/20 16:34 Sputum Gram Stain - Final Resulted 06/27/20 16:34 Sputum Culture - Preliminary YEAST Resulted Accucheck: 200 Critical Care - Subjective ROS Limited/Unobtainable: Yes Interval Events: ET tube was changed this morning by ER physician. The balloon was ruptured. Condition: critical EKG Rhythm: Sinus Rhythm FI02: 100 Vent Support Breath Rate: 26 Vent Support Mode: AC Vent Tidal Volume: 500 Sputum Amount: Moderate PEEP: 10.0 PIP: 51 Tube Feeding Amount: 50 I&O: Intake and Output 06/28/20 06/29/20 19:00 07:00 Intake Total 830 ml 1050 ml Output Total 925 ml 1040 ml Balance -95 ml 10 ml Free Water 200 ml 400 ml Tube Feeding 450 ml 650 ml Other 180 ml Output Urine Total 925 ml 1040 ml # Bowel Movements 50 100 ET-Tube: 7.5 ET Position: 22 Labs: Laboratory Tests Test 06/28/20 18:00 06/29/20 06:14 06/29/20 08:19 Stool Occult Blood Pending White Blood Count 12.4 K/UL (4.8-10.8) H Red Blood Count 2.80 M/UL (4.20-5.40) L Hemoglobin 8.7 G/DL (12.0-16.0) L Hematocrit 26.2 % (37.0-47.0) L Mean Corpuscular Volume 93 FL (80-99) Mean Corpuscular Hemoglobin 31.2 PG (27.0-31.0) H Mean Corpuscular Hemoglobin Concent 33.5 G/DL (32.0-36.0) Red Cell Distribution Width 19.4 % (11.6-14.8) H Platelet Count 89 K/UL (150-450) L Mean Platelet Volume 9.5 FL (6.5-10.1) Neutrophils (%) (Auto) % (45.0-75.0) Lymphocytes (%) (Auto) % (20.0-45.0) Monocytes (%) (Auto) % (1.0-10.0) Eosinophils (%) (Auto) % (0.0-3.0) Basophils (%) (Auto) % (0.0-2.0) Neutrophils % (Manual) Pending Lymphocytes % (Manual) Pending Platelet Estimate Pending Platelet Morphology Pending Sodium Level 150 MMOL/L (136-145) H Potassium Level 3.5 MMOL/L (3.5-5.1) Chloride Level 115 MMOL/L (98-107) H Carbon Dioxide Level 27 MMOL/L (21-32) Anion Gap 9 mmol/L (5-15) Blood Urea Nitrogen 26 mg/dL (7-18) H Creatinine 0.8 MG/DL (0.55-1.30) Estimat Glomerular Filtration Rate > 60 mL/min (>60) Glucose Level 201 MG/DL (74-106) H Calcium Level 7.6 MG/DL (8.5-10.1) L Phosphorus Level 2.1 MG/DL (2.5-4.9) L Magnesium Level 1.7 MG/DL (1.8-2.4) L Total Bilirubin 0.5 MG/DL (0.2-1.0) Aspartate Amino Transf (AST/SGOT) 19 U/L (15-37) Alanine Aminotransferase (ALT/SGPT) 25 U/L (12-78) Alkaline Phosphatase 46 U/L (46-116) C-Reactive Protein, Quantitative 3.8 mg/dL (0.00-0.90) H Pro-B-Type Natriuretic Peptide 5966 pg/mL (0-125) H Total Protein 4.5 G/DL (6.4-8.2) L Albumin 1.2 G/DL (3.4-5.0) L Globulin 3.3 g/dL Albumin/Globulin Ratio 0.4 (1.0-2.7) L Arterial Blood pH 7.443 (7.350-7.450) Arterial Blood Partial Pressure CO2 30.3 mmHg (35.0-45.0) L Arterial Blood Partial Pressure O2 53.1 mmHg (75.0-100.0) L Arterial Blood HCO3 20.3 mmol/L (22.0-26.0) L Arterial Blood Oxygen Saturation 86.4 % (95-100) *L Arterial Blood Base Excess -3.0 (-2-2) L Jonathan Test N/a Elayne Allred MD Jun 29, 2020 10:19
--- NOTE | 2020-06-29 10:40 | General Progress Note ---
Subjective ROS Limited/Unobtainable: No Allergies: Coded Allergies: No Known Allergies (Unverified , 10/16/18) Objective Last 24 Hour Vital Signs Date Time Temp Pulse Resp B/P (MAP) Pulse Ox O2 Delivery O2 Flow Rate FiO2 06/29/20 07:45 142/84 06/29/20 07:29 74 26 100 06/29/20 07:00 53 26 142/84 (103) 94 06/29/20 07:00 53 26 142/84 (103) 94 06/29/20 06:00 55 24 146/64 (91) 98 06/29/20 05:00 58 24 118/66 (83) 98 06/29/20 04:00 Mechanical Ventilator Mechanical Ventilator 06/29/20 04:00 98.5 56 25 119/91 (100) 99 06/29/20 04:00 85 06/29/20 04:00 56 06/29/20 03:00 46 26 142/83 (102) 99 06/29/20 02:59 46 26 70 06/29/20 02:00 42 26 126/61 (82) 100 06/29/20 01:00 54 26 131/55 (80) 97 06/29/20 00:00 65 45 99/57 (71) 99 06/29/20 00:00 Mechanical Ventilator Mechanical Ventilator 06/28/20 23:00 51 25 140/73 (95) 100 06/28/20 22:57 51 26 70 06/28/20 22:00 44 26 119/63 (81) 100 06/28/20 21:00 56 21 127/58 (81) 100 06/28/20 20:00 85 06/28/20 20:00 Mechanical Ventilator Mechanical Ventilator 06/28/20 20:00 97.8 49 23 145/65 (91) 100 06/28/20 20:00 48 06/28/20 19:08 44 26 85 06/28/20 19:03 42 26 135/60 (85) 100 06/28/20 18:00 45 23 116/54 (74) 100 06/28/20 18:00 51 28 89/56 (67) 100 06/28/20 17:00 48 141/69 (93) 99 06/28/20 17:00 48 26 141/69 (93) 100 06/28/20 16:00 47 06/28/20 16:00 96.8 44 30 143/70 (94) 98 06/28/20 16:00 Mechanical Ventilator Mechanical Ventilator 06/28/20 16:00 45 06/28/20 16:00 85 06/28/20 15:00 48 20 138/69 (92) 97 06/28/20 14:56 64 26 85 06/28/20 14:00 44 20 117/58 (77) 97 06/28/20 13:00 51 20 117/56 (76) 97 06/28/20 12:00 85 06/28/20 12:00 47 06/28/20 12:00 98.2 48 18 123/59 (80) 98 06/28/20 12:00 Mechanical Ventilator Mechanical Ventilator 06/28/20 11:03 40 26 85 06/28/20 11:00 41 26 119/61 (80) 96 06/28/20 10:46 149/61 Intake and Output 06/28/20 06/29/20 19:00 07:00 Intake Total 830 ml 1050 ml Output Total 925 ml 1040 ml Balance -95 ml 10 ml Free Water 200 ml 400 ml Tube Feeding 450 ml 650 ml Other 180 ml Output Urine Total 925 ml 1040 ml # Bowel Movements 50 100 Laboratory Tests 06/28/20 18:00: Stool Occult Blood [Pending] 06/29/20 06:14: White Blood Count 12.4H, Red Blood Count 2.80L, Hemoglobin 8.7L, Hematocrit 26.2L, Mean Corpuscular Volume 93, Mean Corpuscular Hemoglobin 31.2H, Mean Corpuscular Hemoglobin Concent 33.5, Red Cell Distribution Width 19.4H, Platelet Count 89L, Mean Platelet Volume 9.5, Neutrophils (%) (Auto) , Lymphocytes (%) (Auto) , Monocytes (%) (Auto) , Eosinophils (%) (Auto) , Basophils (%) (Auto) , Differential Total Cells Counted 100, Neutrophils % (Manual) 91H, Lymphocytes % (Manual) 4L, Monocytes % (Manual) 5, Eosinophils % (Manual) 0, Basophils % (Manual) 0, Band Neutrophils 0, Platelet Estimate DecreasedL, Platelet Morphology Normal, Hypochromasia 1+, Anisocytosis 2+, Sodium Level 150H, Potassium Level 3.5, Chloride Level 115H, Carbon Dioxide Level 27, Anion Gap 9, Blood Urea Nitrogen 26H, Creatinine 0.8, Estimat Glomerular Filtration Rate > 60, Glucose Level 201H, Calcium Level 7.6L, Phosphorus Level 2.1L, Magnesium Level 1.7L, Total Bilirubin 0.5, Aspartate Amino Transf (AST/SGOT) 19, Alanine Aminotransferase (ALT/SGPT) 25, Alkaline Phosphatase 46, C-Reactive Protein, Quantitative 3.8H, Pro-B-Type Natriuretic Peptide 5966H, Total Protein 4.5L, Albumin 1.2L, Globulin 3.3, Albumin/Globulin Ratio 0.4L 06/29/20 08:19: Arterial Blood pH 7.443, Arterial Blood Partial Pressure CO2 30.3L, Arterial Blood Partial Pressure O2 53.1L, Arterial Blood HCO3 20.3L, Arterial Blood Oxygen Saturation 86.4*L, Arterial Blood Base Excess -3.0L, Jonathan Test N/a Height (Feet): 5 Height (Inches): 3.00 Weight (Pounds): 172 General Appearance: no apparent distress EENT: normal ENT inspection Neck: supple Cardiovascular: normal rate Respiratory/Chest: decreased breath sounds Abdomen: normal bowel sounds, non tender, soft Extremities: swelling Assessment/Plan Status: stable, not improved, unchanged Assessment/Plan: 1. History of Down syndrome. 2. Dysphagia with G-tube. 3. Seizure disorder. 4. Hypothyroidism. 5. LEANN. 6. Pneumonia. 7. Sepsis. fu H&H prn blood transfusion to keep HGB above 7 ppi GTF hold GI procedures for now stool ob + 1/2 Nehemiah Perez MD Jun 29, 2020 10:40
[2020-06-29] MEDS: DOPamine 400mg/250ml 250 ML IV SCH (11:15)
--- NOTE | 2020-06-29 12:00 | NUR ---
NURSE NOTES: Dr Allred present in the unit - made aware pt has a right-sided tension PNX per Dr Cardozo. An 18g large bore needle was inserted in the right upper chest area per Dr Allred - ER doctor was also contacted for thoravent insertion.
--- NOTE | 2020-06-29 12:46 | Nephrology Progress Note ---
Assessment/Plan Problem List: (1) LEANN (acute kidney injury) (2) Respiratory failure requiring intubation (3) Down's syndrome (4) Seizure disorder (5) Hypothyroidism Assessment Acute renal failure, likely due to hypotension Acute respiratory distress, hypoxia Seizure disorder Hypothyroidism Down syndrome Full code Fluid challenge with IV fluids and albumin Midodrine for BP above 100 systolic Check TSH level Check Correct level Monitor renal parameters Urine studies Per orders Plan June 29: Labs reviewed. Electrolyte imbalances addressed and supplemented. Remains full code and on ventilator. Continue to monitor renal parameters. Continue per consultants. June 28: Labs reviewed. Serum potassium again low today. Potassium supplement IV and through GT given. Patient remains full code and is on ventilator. Continue per consultants. Continue to monitor electrolytes and renal parameters. June 27: Labs reviewed. Abnormal electrolyte addressed. Remains full code. Remains vented. June 26: Day 27 of hospitalization. Full code. Labs reviewed. Hemoglobin down to 7.5. Electrolyte abnormalities addressed and corrections ordered. Continue to monitor renal parameters. Continue per consultants. Start on Levemir for blood sugar management. Questioning continuation of hydrocortisone? June 25: Labs reviewed. Potassium, phosphorus, hemoglobin, are all low. Potassium and phosphorus IV replacement given. Continue to monitor electrolytes and CBC. Patient remains full code. June 24: Lab reviewed. Low phosphorus low magnesium and low potassium was addressed. Hemoglobin drifting lower. Continue per consultants. Patient remains full code. June 23: Labs reviewed. Patient continues to be on ventilator. D5W for high sodium and also potassium chloride intravenously as supplement given. Hemoglobin 8.4. Continue to monitor electrolytes and renal parameters. June 22: Labs reviewed. Low potassium and high sodium noted. Hemoglobin 8.1 stable. Aim to correct abnormal electrolyte. Continue rest. Will give 2 boluses of D5W 500 cc. June 21: Lab reviewed. Abnormal electrolytes noted and addressed. June 20: Labs reviewed. Potassium supplement given. Patient remains full code. Continue per consultants. June 19: Lab reviewed. Electrolyte abnormalities addressed. Continue per pulmonary and ID. June 18: Lab reviewed. Status unchanged. Serum sodium 151 unchanged. Stable from renal standpoint of view. June 17: Labs reviewed. Status quo. D5W 500 cc IV ordered. Continue to monitor renal parameters. June 16: Status quo. Labs reviewed. Overall condition unchanged. Patient was transfused and hemoglobin higher. Continue current management. Patient remains full code. June 15: Status quo. Overall condition poor. Very low albumin. Edematous. Hypotensive. Hemoglobin lower. Anemia work-up ordered. I favor transfusion 2 units of packed RBCs. Patient remains full code. I favor supportive care only. Will discuss. June 14: Electrolyte abnormalities addressed. Serum creatinine lower. Cont inue per current management. June 13: Status unchanged. Lab reviewed. Serum potassium 2.7. IV potassium chloride ordered. Serum creatinine low at 1.6 stable. Blood pressure 90s systolic June 12: Status quo. Labs reviewed. Renal parameters stable. Serum creatinine down to 1.6. Medication list reviewed. Continues to be on midodrine. Continue per consultants. June 11: Status quo. Labs reviewed. Electrolytes adjusted. Serum creatinine down to 1.8. Continue per consultants. June 10: Status quo. Labs reviewed. Phosphorus supplement IV given. Serum creatinine 2. Continue per consultants. June 09: Requires less pressors. Albumin bolus given. 1 dose of Lasix IV ordered as the patient severely edematous. Patient serum albumin is very low. Continue per consultants. June 08: Continues to be intubated. Labs reviewed. Serum creatinine 1.9 unchanged. Blood pressure more stable. Off 1 of the pressors. Continue to monitor renal parameters. Continue per consultants. Patient now on hydrocortisone 100 mg every 8 hours. Will decrease IV fluid. Normal saline down to 50 cc an hour. June 07: Intubated. Labs reviewed. Creatinine 1.9 unchanged. Continue same treatment plan. Per consultants. Overall poor prognosis since the patient remains on pressors and her pulmonary status is worsening. June 06: Remains intubated. Labs reviewed. Creatinine 1.9. Blood pressure systolic 90s. Continue per consultants. June 05: Remains intubated. Labs reviewed. Serum creatinine lower to 2. Vancomycin level lower. Remains hypotensive on pressors. Will increase midodrine to 10 mg every 8 hours. Continue per consultants. Continue to monitor renal parameters. June 04: Patient now in ICU. Intubated. On pressors. Labs reviewed. Will increase midodrine. Aim to keep blood pressure over 100 systolic. Will give albumin bolus. Will check vancomycin level which was elevated when checked previously on June 01. Will monitor renal parameters. Continue per consultants. Subjective ROS Limited/Unobtainable: Yes Objective Objective Last 24 Hour Vital Signs Date Time Temp Pulse Resp B/P (MAP) Pulse Ox O2 Delivery O2 Flow Rate FiO2 06/29/20 12:00 71 06/29/20 12:00 100 06/29/20 12:00 98.6 76 21 95/55 (68) 90 06/29/20 11:15 92/43 06/29/20 11:00 72 24 92/43 (59) 99 06/29/20 10:30 69 26 81/36 (51) 97 06/29/20 10:15 71 25 78/45 (56) 98 06/29/20 10:00 70 24 83/38 (53) 97 06/29/20 09:00 76 40 102/71 (81) 91 06/29/20 08:30 100 06/29/20 08:00 65 06/29/20 08:00 98.4 76 40 117/93 (101) 86 06/29/20 08:00 70 06/29/20 07:45 142/84 06/29/20 07:29 74 26 100 06/29/20 07:00 53 26 142/84 (103) 94 06/29/20 07:00 53 26 142/84 (103) 94 06/29/20 06:00 55 24 146/64 (91) 98 06/29/20 05:00 58 24 118/66 (83) 98 06/29/20 04:00 Mechanical Ventilator Mechanical Ventilator 06/29/20 04:00 98.5 56 25 119/91 (100) 99 06/29/20 04:00 85 06/29/20 04:00 56 06/29/20 03:00 46 26 142/83 (102) 99 06/29/20 02:59 46 26 70 06/29/20 02:00 42 26 126/61 (82) 100 06/29/20 01:00 54 26 131/55 (80) 97 06/29/20 00:00 65 45 99/57 (71) 99 06/29/20 00:00 Mechanical Ventilator Mechanical Ventilator 06/28/20 23:00 51 25 140/73 (95) 100 06/28/20 22:57 51 26 70 06/28/20 22:00 44 26 119/63 (81) 100 06/28/20 21:00 56 21 127/58 (81) 100 06/28/20 20:00 85 06/28/20 20:00 Mechanical Ventilator Mechanical Ventilator 06/28/20 20:00 97.8 49 23 145/65 (91) 100 06/28/20 20:00 48 06/28/20 19:08 44 26 85 06/28/20 19:03 42 26 135/60 (85) 100 06/28/20 18:00 45 23 116/54 (74) 100 06/28/20 18:00 51 28 89/56 (67) 100 06/28/20 17:00 48 141/69 (93) 99 06/28/20 17:00 48 26 141/69 (93) 100 06/28/20 16:00 47 06/28/20 16:00 96.8 44 30 143/70 (94) 98 06/28/20 16:00 Mechanical Ventilator Mechanical Ventilator 06/28/20 16:00 45 06/28/20 16:00 85 06/28/20 15:00 48 20 138/69 (92) 97 06/28/20 14:56 64 26 85 06/28/20 14:00 44 20 117/58 (77) 97 06/28/20 13:00 51 20 117/56 (76) 97 Intake and Output 06/28/20 06/29/20 19:00 07:00 Intake Total 830 ml 1050 ml Output Total 925 ml 1040 ml Balance -95 ml 10 ml Free Water 200 ml 400 ml Tube Feeding 450 ml 650 ml Other 180 ml Output Urine Total 925 ml 1040 ml # Bowel Movements 50 100 Laboratory Tests 06/28/20 18:00: Stool Occult Blood [Pending] 06/29/20 06:14: White Blood Count 12.4H, Red Blood Count 2.80L, Hemoglobin 8.7L, Hematocrit 26.2L, Mean Corpuscular Volume 93, Mean Corpuscular Hemoglobin 31.2H, Mean Corpuscular Hemoglobin Concent 33.5, Red Cell Distribution Width 19.4H, Platelet Count 89L, Mean Platelet Volume 9.5, Neutrophils (%) (Auto) , Lymphocytes (%) (Auto) , Monocytes (%) (Auto) , Eosinophils (%) (Auto) , Basophils (%) (Auto) , Differential Total Cells Counted 100, Neutrophils % (Manual) 91H, Lymphocytes % (Manual) 4L, Monocytes % (Manual) 5, Eosinophils % (Manual) 0, Basophils % (Manual) 0, Band Neutrophils 0, Platelet Estimate DecreasedL, Platelet Morphology Normal, Hypochromasia 1+, Anisocytosis 2+, Sodium Level 150H, Potassium Level 3.5, Chloride Level 115H, Carbon Dioxide Level 27, Anion Gap 9, Blood Urea Nitrogen 26H, Creatinine 0.8, Estimat Glomerular Filtration Rate > 60, Glucose Level 201H, Calcium Level 7.6L, Phosphorus Level 2.1L, Magnesium Level 1.7L, Total Bilirubin 0.5, Aspartate Amino Transf (AST/SGOT) 19, Alanine Aminotransferase (ALT/SGPT) 25, Alkaline Phosphatase 46, C-Reactive Protein, Quantitative 3.8H, Pro-B-Type Natriuretic Peptide 5966H, Total Protein 4.5L, Albumin 1.2L, Globulin 3.3, Albumin/Globulin Ratio 0.4L 06/29/20 08:19: Arterial Blood pH 7.443, Arterial Blood Partial Pressure CO2 30.3L, Arterial Blood Partial Pressure O2 53.1L, Arterial Blood HCO3 20.3L, Arterial Blood Oxygen Saturation 86.4*L, Arterial Blood Base Excess -3.0L, Jonathan Test N/a Height (Feet): 5 Height (Inches): 3.00 Weight (Pounds): 172 General Appearance: no apparent distress EENT: other - On ventilator Cardiovascular: normal rate Respiratory/Chest: decreased breath sounds Abdomen: distended Keron Pitt MD Jun 29, 2020 12:46
--- NOTE | 2020-06-29 13:00 | NUR ---
NURSE NOTES: Thoravent placed per SAMMY Cortes MD. Connected to wall suction (low continuous) per Dr Allred's order.
--- NOTE | 2020-06-29 13:46 | Internal Med Progress Note ---
Subjective Date of Service: Jun 29, 2020 Physician Name Joni Copeland Attending Physician Elayne Allred MD Current Medications Medications (Trade) Dose Ordered Sig/Katy Route PRN Reason Start Time Stop Time Status Last Admin Dose Admin Acetaminophen (Tylenol) 650 mg Q4H PRN GT FEVER 06/03/20 11:45 07/03/20 11:44 06/26/20 12:48 Chlorhexidine Gluconate (Alla-Hex 2%) 1 applic DAILY@2000 TOPIC 06/08/20 20:00 09/06/20 19:59 06/28/20 20:59 Clotrimazole (Lotrimin) 1 applic Q12HR TOPIC 06/07/20 13:00 09/05/20 12:59 06/29/20 09:05 Dextrose (Dextrose 50%) 25 ml Q30M PRN IV Hypoglycemia 06/03/20 11:30 08/28/20 11:29 Dextrose (Dextrose 50%) 50 ml Q30M PRN IV Hypoglycemia 06/03/20 11:30 08/28/20 11:29 Dopamine HCl/ Dextrose 250 ml @ 0 mls/hr Q24H IV 06/12/20 11:15 09/10/20 11:14 06/14/20 19:47 Hydrocortisone (Solu-CORTEF) 100 mg EVERY 8 HOURS IV 06/07/20 14:00 09/05/20 13:59 06/29/20 13:39 Insulin Aspart (NovoLOG) Q6HR SUBQ 06/26/20 12:00 09/24/20 11:59 06/29/20 12:42 Insulin Detemir (Levemir) 10 units Q12HR SUBQ 06/26/20 10:00 09/24/20 09:59 06/29/20 09:05 Levothyroxine Sodium (Synthroid) 75 mcg DAILY GT 06/04/20 09:00 06/30/20 08:59 06/29/20 08:57 Loperamide HCl (Imodium) 2 mg Q6H PRN NG Diarrhea 06/24/20 10:30 07/24/20 10:29 Midodrine (Pro-Amatine) 10 mg Q8HR GT 06/05/20 14:00 09/03/20 13:59 06/29/20 13:39 Norepinephrine Bitartrate 16 mg/ Dextrose 500 ml @ 0 mls/hr Q24H IV 06/08/20 07:45 07/07/20 12:59 06/12/20 08:43 Pantoprazole (Protonix) 40 mg DAILY IV 06/04/20 09:00 06/30/20 08:59 06/29/20 08:56 Phenylephrine HCl 50 mg/Dextrose 250 ml @ 0 mls/hr Q24H PRN IV For hypotension 06/06/20 17:45 07/06/20 17:44 06/08/20 01:49 Potassium Phosphate 20 mm/ Sodium Chloride 281.6667 ml @ 46.944 m... ONCE ONCE IV 06/29/20 10:00 06/29/20 15:59 06/29/20 10:20 Potassium Chloride (K-Dur) 40 meq TWICE A DAY GT 06/28/20 12:15 09/26/20 12:14 06/29/20 08:55 Valproic Acid (Depakene) 500 mg EVERY 8 HOURS GT 06/03/20 14:00 06/29/20 21:59 06/29/20 13:39 Allergies: Coded Allergies: No Known Allergies (Unverified , 10/16/18) ROS Limited/Unobtainable: Yes Subjective 59 YO F with Down's syndrome admitted with hypoxia. Now sepsis and pneumonia. Cover for Int Med-DR Hawk. ICU. Intubated and sedated Objective Last Vital Signs Date Time Temp Pulse Resp B/P (MAP) Pulse Ox O2 Delivery O2 Flow Rate FiO2 06/29/20 12:00 71 06/29/20 12:00 100 06/29/20 12:00 98.6 21 95/55 (68) 90 06/29/20 04:00 Mechanical Ventilator Mechanical Ventilator Laboratory Tests Test 06/28/20 18:00 06/29/20 06:14 06/29/20 08:19 Stool Occult Blood Pending White Blood Count 12.4 K/UL (4.8-10.8) H Red Blood Count 2.80 M/UL (4.20-5.40) L Hemoglobin 8.7 G/DL (12.0-16.0) L Hematocrit 26.2 % (37.0-47.0) L Mean Corpuscular Volume 93 FL (80-99) Mean Corpuscular Hemoglobin 31.2 PG (27.0-31.0) H Mean Corpuscular Hemoglobin Concent 33.5 G/DL (32.0-36.0) Red Cell Distribution Width 19.4 % (11.6-14.8) H Platelet Count 89 K/UL (150-450) L Mean Platelet Volume 9.5 FL (6.5-10.1) Neutrophils (%) (Auto) % (45.0-75.0) Lymphocytes (%) (Auto) % (20.0-45.0) Monocytes (%) (Auto) % (1.0-10.0) Eosinophils (%) (Auto) % (0.0-3.0) Basophils (%) (Auto) % (0.0-2.0) Differential Total Cells Counted 100 Neutrophils % (Manual) 91 % (45-75) H Lymphocytes % (Manual) 4 % (20-45) L Monocytes % (Manual) 5 % (1-10) Eosinophils % (Manual) 0 % (0-3) Basophils % (Manual) 0 % (0-2) Band Neutrophils 0 % (0-8) Platelet Estimate Decreased L Platelet Morphology Normal Hypochromasia 1+ Anisocytosis 2+ Sodium Level 150 MMOL/L (136-145) H Potassium Level 3.5 MMOL/L (3.5-5.1) Chloride Level 115 MMOL/L (98-107) H Carbon Dioxide Level 27 MMOL/L (21-32) Anion Gap 9 mmol/L (5-15) Blood Urea Nitrogen 26 mg/dL (7-18) H Creatinine 0.8 MG/DL (0.55-1.30) Estimat Glomerular Filtration Rate > 60 mL/min (>60) Glucose Level 201 MG/DL (74-106) H Calcium Level 7.6 MG/DL (8.5-10.1) L Phosphorus Level 2.1 MG/DL (2.5-4.9) L Magnesium Level 1.7 MG/DL (1.8-2.4) L Total Bilirubin 0.5 MG/DL (0.2-1.0) Aspartate Amino Transf (AST/SGOT) 19 U/L (15-37) Alanine Aminotransferase (ALT/SGPT) 25 U/L (12-78) Alkaline Phosphatase 46 U/L (46-116) C-Reactive Protein, Quantitative 3.8 mg/dL (0.00-0.90) H Pro-B-Type Natriuretic Peptide 5966 pg/mL (0-125) H Total Protein 4.5 G/DL (6.4-8.2) L Albumin 1.2 G/DL (3.4-5.0) L Globulin 3.3 g/dL Albumin/Globulin Ratio 0.4 (1.0-2.7) L Arterial Blood pH 7.443 (7.350-7.450) Arterial Blood Partial Pressure CO2 30.3 mmHg (35.0-45.0) L Arterial Blood Partial Pressure O2 53.1 mmHg (75.0-100.0) L Arterial Blood HCO3 20.3 mmol/L (22.0-26.0) L Arterial Blood Oxygen Saturation 86.4 % (95-100) *L Arterial Blood Base Excess -3.0 (-2-2) L Jonathan Test N/a Microbiology Date/Time Source Procedure Growth Status 06/27/20 16:34 Urine,Clean Catch Urine Culture - Final NO GROWTH AFTER 48 HOURS Complete 06/27/20 16:34 Sputum Gram Stain - Final Resulted 06/27/20 16:34 Sputum Culture - Preliminary YEAST Resulted Intake and Output 06/28/20 06/29/20 19:00 07:00 Intake Total 830 ml 1050 ml Output Total 925 ml 1040 ml Balance -95 ml 10 ml Free Water 200 ml 400 ml Tube Feeding 450 ml 650 ml Other 180 ml Output Urine Total 925 ml 1040 ml # Bowel Movements 50 100 Objective General Appearance: WD/WN, no apparent distress, alert EENT: PERRL/EOMI, normal ENT inspection Neck: non-tender, normal alignment, supple, normal inspection Cardiovascular: normal peripheral pulses, normal rate, regular rhythm, no gallop/murmur, no JVD Respiratory/Chest: Mech vent; decreased breath sounds, crackles/rales, rhonchi - bilaterally, expiratory wheezing Abdomen: normal bowel sounds, non tender, soft, no organomegaly, no mass Extremities: normal range of motion Neurologic: animal assistant II-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 Continue amikacin per ID=Dr Camejo. Pulmonary/Critical care=DR Allred. COVID NEG (2) Sepsis Assessment & Plan: Staph haemolyticus. Continue amikacin per ID=Dr Camejo (3) Down's syndrome (4) Dysphagia Assessment & Plan: S/P PEG (5) Seizure disorder Assessment & Plan: Continue keppra and depakote (6) Hypothyroidism Assessment & Plan: Continue synthroid (7) Acute respiratory failure Assessment & Plan: Pulmonary = Dr Allred; [facility] Joni Copeland MD Jun 29, 2020 13:46
--- NOTE | 2020-06-29 14:00 | NUR ---
NURSE NOTES: Pt repositioned. Seen by Dr Camejo. No distress noted.
--- NOTE | 2020-06-29 14:10 | NUR ---
CASE MANAGEMENT: REVIEW SI: LEANN . RESP FAILURE . DOWN'S SYNDROME . RENAL FAILURE T 98.4 HR 55 RR 28 BP 92/43 SAT 90% MECH VENT FIO2 100 WBC 12.4 H/H 8.7/26.2 NA 150 BNP 5966 IS: K PHOS IV X1 K DUR 40MEQ GT BID DOPAMINE IV Q24HR SOLU CORTEF IV Q8HR LEVOPHED IV Q24HR MIDODRINE GT Q8HR ICU STATUS DCP: PATIENT IS FROM [facility]
--- NOTE | 2020-06-29 14:20 | Diagnostic Imaging Report ---
Indication: Endotracheal tube placement, status post CODE BLUE Technique: One view of the chest Comparison: 06/25/2020 Findings: Interim development of a massive right pneumothorax, with complete collapse of the right lung and shift of the mediastinum to the left, volume loss of the left lung. Satisfactory position of endotracheal tube, tip projecting approximately 8 cm above the joseph but well below the thoracic inlet. Left arm PICC is again demonstrated. Impression: Interim development of massive tension pneumothorax on the right. ICU charge nurse Pascale notified of this critical value finding at approximately 11:[address] Allred also notified Satisfactory endotracheal intubation
--- NOTE | 2020-06-29 14:25 | Diagnostic Imaging Report ---
Indication: Status post chest tube for pneumothorax Technique: One view of the chest Comparison: 5 1/2 hours earlier Findings: Interim placement of a smallbore chest vent catheter in the right first intercostal space. The right lung has partially reexpanded and the mediastinal shift has resolved, but there is still a sizable pneumothorax. The catheter tip parallels the inside of the chest wall but there is no adjacent lung to appose it to the chest wall, so suspect that the catheter is just extrapleural rather than intrapleural. Stable satisfactory position of endotracheal tube. Extensive left lung infiltrate and left pleural fluid persists. Impression: Improved but still large right pneumothorax, with resolution of the tension component, status post chest vent catheter placement. Position of the catheter tip, however, is suspicious for it being in the extrapleural space rather than the pleural space. Other findings as noted Findings discussed by phone with Dr. Campbell at the time of interpretation
--- NOTE | 2020-06-29 14:40 | NUR ---
RESPIRATORY NOTE: PT REMAINED STABLE ON CMV WITH CURRENT SETTINGS. SX PRN. AIRWAY IS SECURE AND PATENT. VENT CIRCUIT IS SECURE AND OUT OF THE WAY. NO S/S OF RESPIRATORY DISTRESS NOTED AT THIS TIME.
--- NOTE | 2020-06-29 15:00 | NUR ---
NURSE NOTES: Dr Campbell, ER MD contacted by Dr Cardozo, radiologist stating thoravent is not fully inserted. Chest tube (pleuravac) now inserted at bedside per Dr Campbell - awaiting CXR results.
[2020-06-29] MEDS ORDERED: Etomidate 40mg/20ml Inj IV ONE (15:14)
--- NOTE | 2020-06-29 15:59 | Emergency Room Report ---
History of Present Illness General Chief Complaint: Dyspnea/Respdistress Source: Medical Record Present Illness Allergies: Coded Allergies: No Known Allergies (Unverified , 10/16/18) COVID-19 Screening Contact w/high risk pt: No Experienced COVID-19 symptoms?: No COVID-19 Testing performed CRANE HELPER: Yes COVID-19 Screening: Negative COVID-19 COVID-19 Testing Source: 05/18/20 Patient History Reviewed Nursing Documentation: PMH: Agreed; PSxH: Agreed Nursing Documentation-PMH Past Medical History: No History, Except For Hx Cardiac Problems: No - PVD Hx Diabetes: No - Hypothyroid Hx Cancer: No Hx Gastrointestinal Problems: No - gastrostomy Hx Neurological Problems: Yes - down syndrome Hx Seizures: Yes Hx Speech Problem: Yes Physical Exam Vital Signs Date Time Temp Pulse Resp B/P (MAP) Pulse Ox O2 Delivery O2 Flow Rate FiO2 06/25/20 07:00 60 24 106/67 (80) 99 06/25/20 07:09 85 06/25/20 08:00 Mechanical Ventilator Mechanical Ventilator 06/25/20 08:00 99.2 Procedures Critical Care Time Critical Care Time i. I feel this is a highly complex case requiring extensive working including EKG/Rhythm strip, Xray/CT/US, Blood/urine lab work, repeat exams while in ED, and administration of strong opiates/narcotics for pain control, admission to hospital or close patient follow up. Total time: 60 min bedside evaluation and treatment excludes procedures (EKG). Reason for critical care: respiratory distress, PTX Possible complications: hypotension, hypertension, MN, shock, arrhythmias, metabolic acidosis, end organ damage, respiratory failure. Interventions: Intubation, Thora vent, chest tube Course: Patient evaluated for possible leak in ET tube. Patient likely biting the tube. Down syndrome. Using bougie I was able to exchange the ET tube. Equal breath sounds bilaterally. I was called later by the ICU. Chest x-ray shows pneumothorax. Dock Superintendent decompressed with needle. I attempted to fix with Thora vent. Thora vent did help with the pneumothorax and oxygenation did improve however was likely an extrapleural space. I then performed chest tube on the right midaxillary line. Chest tube placement confirmed on chest x-ray. Improved expansion of lung noted Consultations: nursing staff, EMS, family Performed by: Dr [place]oth[place] Tolerated well condition = critical j. because of unstable vital signs this patient had a condition that could potentially threaten life or limb. I feel this is a critical patient who required my full attention while patient was considered critical. Total Critical Care Time excluding procedures was greater than 60 minutes Chest Tube Chest Tube : Consent: Verbal Chest Tube Location: mid axillary line Chest Tube Procedure: betadine prep, sterile drapes applied, sterile dressing applied Anesthesia: 1% Lidocaine Forbes of Air [place]: Yes Number of Attempts: One Tube Drainage: see nurses notes Tube Sutured to Skin: Yes Post Procedure CXR?: Yes Patient Tolerated: Well Complications: None Intubation Intubation : Consent: Emergent Intubation Method: orotracheal Tube Size (cm): 7.5 Medications: Etomidate Breath Sounds after Intubation: equal Intubation Complications: no complications Post Intubation Xray: Yes Attempts: One Patient Tolerated: Well Complications: Other - PTX noted Medical Decision Making Diagnostic Impression: Primary Impression: ARDS (adult respiratory distress syndrome) Additional Impressions: HCAP (healthcare-associated pneumonia) Septic shock Respiratory failure requiring intubation ER Course I was called to the ICU to evaluate this patient. History of ARDS. Down syndrome. Patient likely bit through her ET tube and was not achieving good peak pressures. Using bougie I was able to exchange the ET tube without difficulty. Improved breath sounds bilaterally. I was called later to the ICU as chest x-ray shows a pneumothorax on the right side. Tension. Was needle decompressed by inspector screen printing. I attempted to with a Thora vent. It did show proved lung expansion but not completely. The Thora vent there appeared in the extrapleural space. I then placed a right-sided chest tube which did improve lung expansion was confirmed on chest x-ray. Last Vital Signs Date Time Temp Pulse Resp B/P (MAP) Pulse Ox O2 Delivery O2 Flow Rate FiO2 06/29/20 15:00 58 22 125/67 (86) 88 06/29/20 12:00 Mechanical Ventilator Mechanical Ventilator 06/29/20 12:00 100 06/29/20 12:00 98.6 Disposition: ADMITTED INPATIENT Condition: Critical Referrals: NON PHYSICIAN (PCP) Jt Campbell MD Jun 29, 2020 15:59
--- NOTE | 2020-06-29 16:00 | NUR ---
NURSE NOTES: CXR results received by Dr Campbell- OK to unclamp and hook to low continuous wall suction at 20 cm H20 per order. Pt in no distress. SpO2 99-100% at this time. Addendum: 06/29/20 at 1720 by Mary Britt RN NURSE NOTES: Late entry: Thoravent removed per Dr Campbell - area covered with gauze - no gross bleeding observed.
--- NOTE | 2020-06-29 16:13 | Diagnostic Imaging Report ---
Indication: Shortness of breath, pneumothorax demonstrated on recent chest radiograph, status post chest tube placement Technique: One view of the chest Comparison: 2 hours earlier Findings: Interim placement of a large-bore chest tube. Interim reexpansion of the right lung. No definite residual pneumothorax demonstrated. There is some subcutaneous emphysema in the right chest wall. There is diffuse right lung opacity, which is less extensive than the extensive opacity in the left lung. Stable satisfactory position of endotracheal tube, left arm PICC. Small bore chest catheter remains in place. Impression: Interim reexpansion of previously demonstrated right pneumothorax, status post large bore chest tube placement. Other findings as noted Findings previously discussed by phone with Dr. Campbell in the emergency room
--- NOTE | 2020-06-29 18:00 | NUR ---
NURSE NOTES: Pt repositioned and cleaned. No distress noted at this time.
--- NOTE | 2020-06-29 18:33 | Cardiology Progress Note ---
Assessment/Plan Assessment/Plan sepsis respiratory failure ards renal insuf bacteremia abn cardiac enzyme due to demand sinus rafael stable thrombocytopenia resolved hypernatremia vent support abx wbc na increased still but i mproved 3rd spacing alot cxr left side seems lmost white out tsh seems fine sig edema with hypernatremia need nauteresis eventually remains off pressor still at this time hr inthe 40's-60's no sig pauses on tele tele personally reviewed Subjective ROS Limited/Unobtainable: Yes Subjective on a vent not communicative sleeeping Objective Last 24 Hour Vital Signs Date Time Temp Pulse Resp B/P (MAP) Pulse Ox O2 Delivery O2 Flow Rate FiO2 06/29/20 18:00 52 26 108/55 (72) 100 06/29/20 17:00 60 46 122/60 (80) 100 06/29/20 16:00 57 06/29/20 16:00 98.9 54 28 126/79 (95) 93 06/29/20 16:00 100 06/29/20 16:00 Mechanical Ventilator Mechanical Ventilator 06/29/20 15:00 58 22 125/67 (86) 88 06/29/20 14:40 54 26 100 06/29/20 14:00 55 25 133/54 (80) 86 06/29/20 13:00 59 28 125/55 (78) 92 06/29/20 12:00 Mechanical Ventilator Mechanical Ventilator 06/29/20 12:00 71 06/29/20 12:00 100 06/29/20 12:00 98.6 76 21 95/55 (68) 90 06/29/20 11:26 67 26 100 06/29/20 11:15 92/43 06/29/20 11:00 72 24 92/43 (59) 99 06/29/20 10:30 69 26 81/36 (51) 97 06/29/20 10:15 71 25 78/45 (56) 98 06/29/20 10:00 70 24 83/38 (53) 97 06/29/20 09:00 76 40 102/71 (81) 91 06/29/20 08:30 100 06/29/20 08:00 65 06/29/20 08:00 98.4 76 40 117/93 (101) 86 06/29/20 08:00 Mechanical Ventilator Mechanical Ventilator 06/29/20 08:00 70 06/29/20 07:45 142/84 06/29/20 07:29 74 26 100 06/29/20 07:00 53 26 142/84 (103) 94 06/29/20 07:00 53 26 142/84 (103) 94 06/29/20 06:00 55 24 146/64 (91) 98 06/29/20 05:00 58 24 118/66 (83) 98 06/29/20 04:00 Mechanical Ventilator Mechanical Ventilator 06/29/20 04:00 98.5 56 25 119/91 (100) 99 06/29/20 04:00 85 06/29/20 04:00 56 06/29/20 03:00 46 26 142/83 (102) 99 06/29/20 02:59 46 26 70 06/29/20 02:00 42 26 126/61 (82) 100 06/29/20 01:00 54 26 131/55 (80) 97 06/29/20 00:00 65 45 99/57 (71) 99 06/29/20 00:00 Mechanical Ventilator Mechanical Ventilator 06/28/20 23:00 51 25 140/73 (95) 100 06/28/20 22:57 51 26 70 06/28/20 22:00 44 26 119/63 (81) 100 06/28/20 21:00 56 21 127/58 (81) 100 06/28/20 20:00 85 06/28/20 20:00 Mechanical Ventilator Mechanical Ventilator 06/28/20 20:00 97.8 49 23 145/65 (91) 100 06/28/20 20:00 48 06/28/20 19:08 44 26 85 06/28/20 19:03 42 26 135/60 (85) 100 General Appearance: no apparent distress, on vent, isolation precautions Neck: supple Respiratory/Chest: crackles/rales - anteriorly righside upper Abdomen: normal bowel sounds, non tender, soft Extremities: moderate edema Intake and Output 06/28/20 06/29/20 19:00 07:00 Intake Total 830 ml 1050 ml Output Total 925 ml 1040 ml Balance -95 ml 10 ml Free Water 200 ml 400 ml Tube Feeding 450 ml 650 ml Other 180 ml Output Urine Total 925 ml 1040 ml # Bowel Movements 50 100 Laboratory Tests Test 06/29/20 06:14 06/29/20 08:19 White Blood Count 12.4 K/UL (4.8-10.8) H Red Blood Count 2.80 M/UL (4.20-5.40) L Hemoglobin 8.7 G/DL (12.0-16.0) L Hematocrit 26.2 % (37.0-47.0) L Mean Corpuscular Volume 93 FL (80-99) Mean Corpuscular Hemoglobin 31.2 PG (27.0-31.0) H Mean Corpuscular Hemoglobin Concent 33.5 G/DL (32.0-36.0) Red Cell Distribution Width 19.4 % (11.6-14.8) H Platelet Count 89 K/UL (150-450) L Mean Platelet Volume 9.5 FL (6.5-10.1) Neutrophils (%) (Auto) % (45.0-75.0) Lymphocytes (%) (Auto) % (20.0-45.0) Monocytes (%) (Auto) % (1.0-10.0) Eosinophils (%) (Auto) % (0.0-3.0) Basophils (%) (Auto) % (0.0-2.0) Differential Total Cells Counted 100 Neutrophils % (Manual) 91 % (45-75) H Lymphocytes % (Manual) 4 % (20-45) L Monocytes % (Manual) 5 % (1-10) Eosinophils % (Manual) 0 % (0-3) Basophils % (Manual) 0 % (0-2) Band Neutrophils 0 % (0-8) Platelet Estimate Decreased L Platelet Morphology Normal Hypochromasia 1+ Anisocytosis 2+ Sodium Level 150 MMOL/L (136-145) H Potassium Level 3.5 MMOL/L (3.5-5.1) Chloride Level 115 MMOL/L (98-107) H Carbon Dioxide Level 27 MMOL/L (21-32) Anion Gap 9 mmol/L (5-15) Blood Urea Nitrogen 26 mg/dL (7-18) H Creatinine 0.8 MG/DL (0.55-1.30) Estimat Glomerular Filtration Rate > 60 mL/min (>60) Glucose Level 201 MG/DL (74-106) H Calcium Level 7.6 MG/DL (8.5-10.1) L Phosphorus Level 2.1 MG/DL (2.5-4.9) L Magnesium Level 1.7 MG/DL (1.8-2.4) L Total Bilirubin 0.5 MG/DL (0.2-1.0) Aspartate Amino Transf (AST/SGOT) 19 U/L (15-37) Alanine Aminotransferase (ALT/SGPT) 25 U/L (12-78) Alkaline Phosphatase 46 U/L (46-116) C-Reactive Protein, Quantitative 3.8 mg/dL (0.00-0.90) H Pro-B-Type Natriuretic Peptide 5966 pg/mL (0-125) H Total Protein 4.5 G/DL (6.4-8.2) L Albumin 1.2 G/DL (3.4-5.0) L Globulin 3.3 g/dL Albumin/Globulin Ratio 0.4 (1.0-2.7) L Arterial Blood pH 7.443 (7.350-7.450) Arterial Blood Partial Pressure CO2 30.3 mmHg (35.0-45.0) L Arterial Blood Partial Pressure O2 53.1 mmHg (75.0-100.0) L Arterial Blood HCO3 20.3 mmol/L (22.0-26.0) L Arterial Blood Oxygen Saturation 86.4 % (95-100) *L Arterial Blood Base Excess -3.0 (-2-2) L Jonathan Test N/a Microbiology Date/Time Source Procedure Growth Status 06/27/20 16:34 Urine,Clean Catch Urine Culture - Final NO GROWTH AFTER 48 HOURS Complete 06/27/20 16:34 Sputum Gram Stain - Final Resulted 06/27/20 16:34 Sputum Culture - Preliminary YEAST Resulted Josue Pantoja MD Jun 29, 2020 18:33
--- NOTE | 2020-06-29 19:04 | NUR ---
NURSE HAND-OFF REPORT: Latest Vital Signs: Temperature 98.9 , Pulse 46 , B/P 140 /64 , Respiratory Rate 26 , O2 SAT 100 , Mechanical Ventilator, O2 Flow Rate 15.0 . EKG Rhythm: Sinus Bradycardia Rhythm change?: Marce PRAKASH Notified?: Y -Dr Arlin PRAKASH Response: No New Orders Received Latest Osroio Fall Score: 70 Fall Risk: High Risk Safety Measures: Call light Within Reach, Bed Alarm Zone 1, Side Rails Side Rails x3, Bed position Low and Locked. Fall Precautions: Yellow Socks Door Sign Patient Fall Education Report given to TAI Ash.
--- NOTE | 2020-06-29 19:17 | NUR ---
NURSE NOTES: received report from matt rivera pt orally intubated to vent with o2 sat 100% chest tube -suction 20 chest dressing dry and intact i reposition and suction tolerating tube feeding no residual iv infusing well site good dressing dry and intact
[2020-06-29] MEDS: Dyna-Hex 2% Top Sol 2oz TOPIC SCH (20:00)
--- NOTE | 2020-06-29 21:34 | Infectious Diseases Prog Note ---
Assessment/Plan ASSESSMENT: sp code blue 06/03 Septic Shock; SP Fever, recurrent- low grade over night Leukocytosis; persistent/fluctuating, improved -06/17 u/a no pyuria -06/16 Bcx NTD (Picc line) -06/14 Bcx NTD ucx Neg sp cx C. parapsilopsis -06/03 u/a no pyuria Pneumonia.- COVID 19 neg x3 Acute hypoxic resp failure on VM> NRB 15l 100%; hypoxic on ABG> now VDRF 06/03- Fio2 80% >100% 06/05> 60% 06/09 >80% 06/10 >95% 06/18 >90% 06/22 >60% 06/23 -06/29 CXR: Interim reexpansion of previously demonstrated right pneumothorax, status post large bore chest tube placement. -06/22 CXR: Improved aeration of both lungs. -06/13 CXR:Small bilateral pleural effusions with minor edema. Stable edema with mild worsening in the degree of pleural effusion on the right. -06/09 sp cx Neg 06/08 CXR: Extensive bilateral interstitial and airspace disease appears similar to the prior exam. Moderate to large bilateral pleural effusions appear unchanged. 06/05 CXR: Increasing left upper lobe dense consolidation and likely increasing bilateral pleural fluid. Persistent diffuse dense consolidation elsewhere -06/03 sp cx normal resp marie -06/02 CXR: Increased atelectasis of the right lung, since prior exam of 3 days earlier. New or increased right pleural effusion. Increased left basilar consolidation and/or pleural fluid -COVID Rapid PCR neg 05/31, 05/31, 06/03 -05/30 spc x Group G strep -05/30 CXR: Reduced lung volumes. Patchy bilateral predominantly interstitial pulmonary opacities. Could be from edema and/or pneumonia. There is a broader differential. -legionella ag urine, blasto ab, Histo ab, HIV ab screen, FRANCIS, ANCA neg Persistent, high grade bacteremia- -05/30 Bcx 4/4 sets S. haemolyticus; 05/31 Bcx 3/4 S/ epi; 06/04 Bcx 1.4 S. warnerri; 06/06 Bcx Neg -2d echo: no vegetaions seen ua/ wbc 10-15, nit neg, leuk +1; ucx Neg LEANN; -supratherapeutic vanco levels -Seizure disorder. - Hypothyroidism. - Down syndrome. History of PEG tube placement. [place] resident PLAN: Continue to monitor off abx, if more episode of fever, will start Empiric AB Rx 06/22 SP Meropenem #18, IV AMikacin #7 06/12/20 SP Daptomycin #11 06/10 SP MIcafungin #7, Linezolid #5 06/05 SP Azithromycin #7/7 06/03 SP Ceftriaxone #2 06/02 SP IV Vancomycin #4, Zosyn #4 05/30 SP Cefepime x1, Flagyl x1 - Monitor CBC, BMP. .f/u Repeat cx - COVID neg x3 - Monitor chest x-ray. - Monitor the patient's clinical course and labs. Based on those, we will do further recommendation. -f/u Bcx from picc line, cdiff if diarrhea -f/u Fungitell, asp ag, flow cytometry -Once stable, CT chest/abd/pw/ given persistent leukocytosis -poor prognosis - ortiz Cx ( B,U, S) Thank you, Dr. Allred, for allowing me to participate in the care of this patient. I will follow the patient with you at this hospitalization. Discussed with RN Subjective Allergies: Coded Allergies: No Known Allergies (Unverified , 10/16/18) *late entry* afebrile >48hrs Fio2 100% on pressors leukocytosis improving Objective Last 24 Hour Vital Signs Date Time Temp Pulse Resp B/P (MAP) Pulse Ox O2 Delivery O2 Flow Rate FiO2 06/29/20 19:25 51 26 100 06/29/20 19:00 46 26 140/64 (89) 100 06/29/20 18:00 52 26 108/55 (72) 100 06/29/20 18:00 100 06/29/20 17:00 60 46 122/60 (80) 100 06/29/20 16:00 57 06/29/20 16:00 98.9 54 28 126/79 (95) 93 06/29/20 16:00 100 06/29/20 16:00 Mechanical Ventilator Mechanical Ventilator 06/29/20 15:00 58 22 125/67 (86) 88 06/29/20 14:40 54 26 100 06/29/20 14:00 55 25 133/54 (80) 86 06/29/20 13:00 59 28 125/55 (78) 92 06/29/20 12:00 Mechanical Ventilator Mechanical Ventilator 06/29/20 12:00 71 06/29/20 12:00 100 06/29/20 12:00 98.6 76 21 95/55 (68) 90 06/29/20 11:26 67 26 100 06/29/20 11:15 92/43 06/29/20 11:00 72 24 92/43 (59) 99 06/29/20 10:30 69 26 81/36 (51) 97 06/29/20 10:15 71 25 78/45 (56) 98 06/29/20 10:00 70 24 83/38 (53) 97 06/29/20 09:00 76 40 102/71 (81) 91 06/29/20 08:30 100 06/29/20 08:00 65 06/29/20 08:00 98.4 76 40 117/93 (101) 86 06/29/20 08:00 Mechanical Ventilator Mechanical Ventilator 06/29/20 08:00 70 06/29/20 07:45 142/84 06/29/20 07:29 74 26 100 06/29/20 07:00 53 26 142/84 (103) 94 06/29/20 07:00 53 26 142/84 (103) 94 06/29/20 06:00 55 24 146/64 (91) 98 06/29/20 05:00 58 24 118/66 (83) 98 06/29/20 04:00 Mechanical Ventilator Mechanical Ventilator 06/29/20 04:00 98.5 56 25 119/91 (100) 99 06/29/20 04:00 85 06/29/20 04:00 56 06/29/20 03:00 46 26 142/83 (102) 99 06/29/20 02:59 46 26 70 06/29/20 02:00 42 26 126/61 (82) 100 06/29/20 01:00 54 26 131/55 (80) 97 06/29/20 00:00 65 45 99/57 (71) 99 06/29/20 00:00 Mechanical Ventilator Mechanical Ventilator 06/28/20 23:00 51 25 140/73 (95) 100 06/28/20 22:57 51 26 70 06/28/20 22:00 44 26 119/63 (81) 100 Height (Feet): 5 Height (Inches): 3.00 Weight (Pounds): 172 HEENT: No pale conjunctivae. No icterus. ETT in place NECK: No lymphadenopathy. CHEST: Coarse breathing sounds. HEART: S1 and S2. ABDOMEN: Soft. PEG tube in place. EXTREMITIES: No cyanosis at this time . SKIN: no rash Microbiology Date/Time Source Procedure Growth Status 06/27/20 16:34 Urine,Clean Catch Urine Culture - Final NO GROWTH AFTER 48 HOURS Complete 06/27/20 16:34 Sputum Gram Stain - Final Resulted 06/27/20 16:34 Sputum Culture - Preliminary YEAST Resulted Laboratory Tests Test 06/29/20 06:14 06/29/20 08:19 White Blood Count 12.4 K/UL (4.8-10.8) H Red Blood Count 2.80 M/UL (4.20-5.40) L Hemoglobin 8.7 G/DL (12.0-16.0) L Hematocrit 26.2 % (37.0-47.0) L Mean Corpuscular Volume 93 FL (80-99) Mean Corpuscular Hemoglobin 31.2 PG (27.0-31.0) H Mean Corpuscular Hemoglobin Concent 33.5 G/DL (32.0-36.0) Red Cell Distribution Width 19.4 % (11.6-14.8) H Platelet Count 89 K/UL (150-450) L Mean Platelet Volume 9.5 FL (6.5-10.1) Neutrophils (%) (Auto) % (45.0-75.0) Lymphocytes (%) (Auto) % (20.0-45.0) Monocytes (%) (Auto) % (1.0-10.0) Eosinophils (%) (Auto) % (0.0-3.0) Basophils (%) (Auto) % (0.0-2.0) Differential Total Cells Counted 100 Neutrophils % (Manual) 91 % (45-75) H Lymphocytes % (Manual) 4 % (20-45) L Monocytes % (Manual) 5 % (1-10) Eosinophils % (Manual) 0 % (0-3) Basophils % (Manual) 0 % (0-2) Band Neutrophils 0 % (0-8) Platelet Estimate Decreased L Platelet Morphology Normal Hypochromasia 1+ Anisocytosis 2+ Sodium Level 150 MMOL/L (136-145) H Potassium Level 3.5 MMOL/L (3.5-5.1) Chloride Level 115 MMOL/L (98-107) H Carbon Dioxide Level 27 MMOL/L (21-32) Anion Gap 9 mmol/L (5-15) Blood Urea Nitrogen 26 mg/dL (7-18) H Creatinine 0.8 MG/DL (0.55-1.30) Estimat Glomerular Filtration Rate > 60 mL/min (>60) Glucose Level 201 MG/DL (74-106) H Calcium Level 7.6 MG/DL (8.5-10.1) L Phosphorus Level 2.1 MG/DL (2.5-4.9) L Magnesium Level 1.7 MG/DL (1.8-2.4) L Total Bilirubin 0.5 MG/DL (0.2-1.0) Aspartate Amino Transf (AST/SGOT) 19 U/L (15-37) Alanine Aminotransferase (ALT/SGPT) 25 U/L (12-78) Alkaline Phosphatase 46 U/L (46-116) C-Reactive Protein, Quantitative 3.8 mg/dL (0.00-0.90) H Pro-B-Type Natriuretic Peptide 5966 pg/mL (0-125) H Total Protein 4.5 G/DL (6.4-8.2) L Albumin 1.2 G/DL (3.4-5.0) L Globulin 3.3 g/dL Albumin/Globulin Ratio 0.4 (1.0-2.7) L Arterial Blood pH 7.443 (7.350-7.450) Arterial Blood Partial Pressure CO2 30.3 mmHg (35.0-45.0) L Arterial Blood Partial Pressure O2 53.1 mmHg (75.0-100.0) L Arterial Blood HCO3 20.3 mmol/L (22.0-26.0) L Arterial Blood Oxygen Saturation 86.4 % (95-100) *L Arterial Blood Base Excess -3.0 (-2-2) L Jonathan Test N/a Current Medications Medications (Trade) Dose Ordered Sig/Katy Route PRN Reason Start Time Stop Time Status Last Admin Dose Admin Acetaminophen (Tylenol) 650 mg Q4H PRN GT FEVER 06/03/20 11:45 07/03/20 11:44 06/26/20 12:48 Chlorhexidine Gluconate (Alla-Hex 2%) 1 applic DAILY@2000 TOPIC 06/08/20 20:00 09/06/20 19:59 06/28/20 20:59 Clotrimazole (Lotrimin) 1 applic Q12HR TOPIC 06/07/20 13:00 09/05/20 12:59 06/29/20 20:48 Dextrose (Dextrose 50%) 25 ml Q30M PRN IV Hypoglycemia 06/03/20 11:30 08/28/20 11:29 Dextrose (Dextrose 50%) 50 ml Q30M PRN IV Hypoglycemia 06/03/20 11:30 08/28/20 11:29 Dopamine HCl/ Dextrose 250 ml @ 0 mls/hr Q24H IV 06/12/20 11:15 09/10/20 11:14 06/14/20 19:47 Hydrocortisone (Solu-CORTEF) 100 mg EVERY 8 HOURS IV 06/07/20 14:00 09/05/20 13:59 06/29/20 13:39 Insulin Aspart (NovoLOG) Q6HR SUBQ 06/26/20 12:00 09/24/20 11:59 06/29/20 12:42 Insulin Detemir (Levemir) 10 units Q12HR SUBQ 06/26/20 10:00 09/24/20 09:59 06/29/20 20:48 Levothyroxine Sodium (Synthroid) 75 mcg DAILY GT 06/04/20 09:00 06/30/20 08:59 06/29/20 08:57 Loperamide HCl (Imodium) 2 mg Q6H PRN NG Diarrhea 06/24/20 10:30 07/24/20 10:29 Midodrine (Pro-Amatine) 10 mg Q8HR GT 06/05/20 14:00 09/03/20 13:59 06/29/20 13:39 Norepinephrine Bitartrate 16 mg/ Dextrose 500 ml @ 0 mls/hr Q24H IV 06/08/20 07:45 07/07/20 12:59 06/12/20 08:43 Pantoprazole (Protonix) 40 mg DAILY IV 06/04/20 09:00 06/30/20 08:59 06/29/20 08:56 Phenylephrine HCl 50 mg/Dextrose 250 ml @ 0 mls/hr Q24H PRN IV For hypotension 06/06/20 17:45 07/06/20 17:44 06/08/20 01:49 Potassium Chloride (K-Dur) 40 meq TWICE A DAY GT 06/28/20 12:15 09/26/20 12:14 06/29/20 17:30 Valproic Acid (Depakene) 500 mg EVERY 8 HOURS GT 06/03/20 14:00 06/29/20 21:59 06/29/20 13:39 Suki Camejo M.D. Jun 29, 2020 21:34
--- NOTE | 2020-06-29 22:00 | NUR ---
NURSE NOTES: reposition and suction no acute resp distress note
[2020-06-30] VITALS (24 sets, daily range): BP systolic 101–182; BP diastolic 53–88
--- NOTE | 2020-06-30 | NUR ---
NURSE NOTES: BS 126 NO INSULIN COVERAGE
--- NOTE | 2020-06-30 04:00 | NUR ---
NURSE NOTES: complete bed bath oral care back care done reposition and suction
[2020-06-30] MEDS: Midodrine 10mg tab GT SCH ×3 (05:36→21:44)
[2020-06-30] MEDS: Hydrocortisone 100mg Inj IV SCH ×3 (05:36→21:44)
[2020-06-30] MEDS: NovoLOG Insulin Flexpen SUBQ SCH ×4 (05:37→19:25)
[2020-06-30 05:49] LABS: HEMATOCRIT 27.1 % (37.0-47.0); MEAN CORPUSCULAR VOLUME 94 FL (80-99); PLATELET COUNT 74 K/UL (150-450); RED BLOOD COUNT 2.89 M/UL (4.20-5.40); RED CELL DISTRIBUTION WIDTH 18.5 % (11.6-14.8); WHITE BLOOD COUNT 9.7 K/UL (4.8-10.8)
--- NOTE | 2020-06-30 06:00 | NUR ---
NURSE NOTES: BS 151 INSULIN COVERAGE GIVEN ORDER
[2020-06-30 06:19] LABS: ALANINE AMINOTRANSFERASE 43 U/L (12-78); ALBUMIN 1.2 G/DL (3.4-5.0); ALBUMIN/GLOBULIN RATIO 0.4 (1.0-2.7); ALKALINE PHOSPHATASE 47 U/L (46-116); ANION GAP 8 mmol/L (5-15); ASPARTATE AMINO TRANSFERASE 35 U/L (15-37); BILIRUBIN,TOTAL 0.7 MG/DL (0.2-1.0); BLOOD UREA NITROGEN 28 mg/dL (7-18); CALCIUM 7.7 MG/DL (8.5-10.1); CARBON DIOXIDE 27 MMOL/L (21-32); CHLORIDE 116 MMOL/L (98-107); CREATININE 0.8 MG/DL (0.55-1.30); SODIUM 151 MMOL/L (136-145)
--- NOTE | 2020-06-30 07:26 | NUR ---
NURSE HAND-OFF REPORT: Latest Vital Signs: Temperature 98.2 , Pulse 53 , B/P 147 /88 , Respiratory Rate 20 , O2 SAT 99 , Mechanical Ventilator, O2 Flow Rate 15.0 . Vital Sign Comment: EKG Rhythm: Sinus Bradycardia Rhythm change?: Marce PRAKASH Notified?: Y -Dr Arlin PRAKASH Response: No New Orders Received Latest Osorio Fall Score: 70 Fall Risk: High Risk Safety Measures: Call light Within Reach, Bed Alarm Zone 1, Side Rails Side Rails x3, Bed position Low and Locked. Fall Precautions: Yellow Socks Door Sign Patient Fall Education Report given to faiza rivera using sbar .
--- NOTE | 2020-06-30 07:35 | NUR ---
NURSE NOTES: Pt received from TAI Ash. Patient observed bedside. Patient opens eyes spontaneously, tracks to voice however does not follow commands. Patient is responsive to both tactile and painful stimuli. Patient does not appear to be in any acute distress however when assessing close to the chest tube site, patient did grimace and wince as if she experienced discomfort. Patient is being monitored on the surveillance monitor. VS with HR 42 RR 26 SPO2 99% with BP 182/70. Pt is afebrile at this time. Patient is orally intubated with ETT 20 cm at the lip 7.5 with vent settings: AC 26 TV 500 FiO2 100% Peep 10. Upon auscultation, patient is noted to have diminished lung sounds on the L. Patient is with chest tube on the R side with what appears to be an air leak draining serous fluid. Oral care has been performed. Patient has a GT running Vital at 50 cc/gr with only 2 ml residuals, a 50 ml flush was given. Bowel sounds are hypoactive in all four quadrants. Patient is with a Gregorio catheter that is patent and draining good urine output with yellow urine. Patient has a JODY PICC line that is TKO. Patient has BL heel DTI with dressings that are dry and intact. Pt is with 2+ edema. Safety measures are in place with bed locked in the lowest position, safety alarm on, side rails up x 2 with seizure precautions, call light within reach. Will continue to monitor and follow MD orders.
[2020-06-30] MEDS: Norepinephrine Bitartrate 16 MG in D5W 500ml 484 ML IV SCH (07:45)
[2020-06-30] MEDS: Levemir Flexpen SUBQ SCH ×2 (08:59→20:56)
--- NOTE | 2020-06-30 09:00 | NUR ---
RD ASSESSMENT & RECOMMENDATIONS SEE CARE ACTIVITY FOR COMPLETE ASSESSMENT DAILY ESTIMATED NEEDS: Needs based on CRITICAL CARE, 50kg 22-28 kcals/kg [id number] total kcals 1.25-2 g protein/kg 63-100 g total protein 25-30 mL/kg [id number] total fluid mLs NUTRITION DIAGNOSIS: Swallowing difficulty r/t dysphagia as evidenced by pt w/ Downs Syndrome, PEG dep for all nutritional needs, now intubated, now off pressor support, ICU status. CURRENT TF:Vital AF 1.2 @ 60ml/hr x 22 hrs ENTERAL NUTRITION RECOMMENDATIONS: VITAL AF 1.2 @ 50ml/hr x22 hrs to provide 1100ml, 1320 kcal, 83g pro, 892ml free H2O - Maintain Vital AF for carb control, critical care, elemental feeds for diarrhea - LOWER goal rate to 50ml/hr not to exceed est kcal needs, also for improved BG control and help alleviate diarrhea -> will meet 100% est kcal/prot needs - Hold TF 1 hr before and after synthroid meds. - Flush per MD, HOB over 30 degrees. ADDITIONAL RECOMMENDATIONS: 1) Ht of 61 inches per SNF; recalibrate bed scale for accurate CBW 2) Add NISS: BGs now in the 200's, on Solucortef 3) Monitor hemodynamic stability: pressors held at this time 4) Wound healing: Continue Vit C 250mg QD + [place] BID 5) Monitor lytes, replete as needed (low K and phos) 6) Add probiotics for diarrhea .
--- NOTE | 2020-06-30 09:51 | Diagnostic Imaging Report ---
Indication: Dyspnea Technique: One view of the chest Comparison: 06/29/2020 Findings: In retrospect, a small pneumothorax is still visible on previous day's exam. However, on the current study the right lung appears completely reexpanded. Right chest tube remains in good position. Bilateral diffuse infiltrates versus edema are again demonstrated, better demonstrated in the right lung now that is completely reexpanded. Stable satisfactory positions of endotracheal tube and left arm PICC. Markedly decreased subcutaneous emphysema, now largely resolved Impression: Interim complete reexpansion of right lung without evidence of residual pneumothorax Bilateral diffuse and extensive infiltrates. Markedly improved chest wall subcutaneous emphysema Other stable findings as described
--- NOTE | 2020-06-30 10:20 | Pulmonolgy Critical Care Note ---
Critical Care - Asmt/Plan Problems: (1) Acute respiratory failure (2) Bacteremia (3) Pneumonia (4) Sepsis (5) HCAP (healthcare-associated pneumonia) (6) Seizure disorder (7) Down's syndrome Respiratory: adjust tidal volume, monitor respiratory rate, adjust FIO2 Cardiac: start pressors, stop pressors, continue to monitor HR/BP Renal: keep IV fluid, check electrolytes Infectious Disease: check cultures Gastrointestinal: continue feedings/current rate Endocrine: monitor blood sugar, check HgA1C, continue sliding scale insulin Hematologic: transfuse if hgb<8.5 Neurologic: PRN Ativan, keep patient comfortable Affect: PRN ativan Prophylaxis: Heparin Notes Reviewed: 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 with: nurses, consultants, casermanager radiation - Objective Last 24 Hour Vital Signs Date Time Temp Pulse Resp B/P (MAP) Pulse Ox O2 Delivery O2 Flow Rate FiO2 06/30/20 07:45 158/71 06/30/20 07:08 49 26 100 06/30/20 06:00 53 20 147/88 (107) 99 06/30/20 05:00 67 30 153/78 (103) 95 06/30/20 05:00 Mechanical Ventilator Mechanical Ventilator 06/30/20 04:00 Mechanical Ventilator Mechanical Ventilator 06/30/20 04:00 100 06/30/20 04:00 50 06/30/20 04:00 98.2 50 23 143/84 (103) 100 06/30/20 03:00 50 26 146/83 (104) 100 06/30/20 02:32 48 26 100 06/30/20 02:00 47 30 140/69 (92) 100 06/30/20 01:00 51 24 160/74 (102) 99 06/30/20 00:00 98.0 43 31 151/72 (98) 100 06/30/20 00:00 100 06/30/20 00:00 Mechanical Ventilator Mechanical Ventilator 06/30/20 00:00 52 06/29/20 23:00 97.8 44 31 165/72 (103) 100 06/29/20 22:30 44 26 100 06/29/20 22:00 49 27 124/66 (85) 100 06/29/20 21:00 54 22 132/68 (89) 100 06/29/20 20:00 Mechanical Ventilator Mechanical Ventilator 06/29/20 20:00 56 06/29/20 20:00 46 32 134/50 (78) 99 06/29/20 19:25 51 26 100 06/29/20 19:00 46 26 140/64 (89) 100 06/29/20 18:00 52 26 108/55 (72) 100 06/29/20 18:00 100 06/29/20 17:00 60 46 122/60 (80) 100 06/29/20 16:00 57 06/29/20 16:00 98.9 54 28 126/79 (95) 93 06/29/20 16:00 100 06/29/20 16:00 Mechanical Ventilator Mechanical Ventilator 06/29/20 15:00 58 22 125/67 (86) 88 06/29/20 14:40 54 26 100 06/29/20 14:00 55 25 133/54 (80) 86 06/29/20 13:00 59 28 125/55 (78) 92 06/29/20 12:00 Mechanical Ventilator Mechanical Ventilator 06/29/20 12:00 71 06/29/20 12:00 100 06/29/20 12:00 98.6 76 21 95/55 (68) 90 06/29/20 11:26 67 26 100 06/29/20 11:15 92/43 06/29/20 11:00 72 24 92/43 (59) 99 06/29/20 10:30 69 26 81/36 (51) 97 Status: awake, sedated Condition: critical, improving HEENT: atraumatic Neck: full ROM Lungs: clear Heart: HR/BP stable Abdomen: soft, active bowel sounds Extremities: edema Decubiti: location Micro: Microbiology Date/Time Source Procedure Growth Status 06/27/20 19:45 Blood Blood Culture - Preliminary NO GROWTH AFTER 48 HOURS Resulted 06/27/20 19:30 Blood Blood Culture - Preliminary NO GROWTH AFTER 48 HOURS Resulted 06/27/20 16:34 Urine,Clean Catch Urine Culture - Final NO GROWTH AFTER 48 HOURS Complete 06/27/20 16:34 Sputum Gram Stain - Final Resulted 06/27/20 16:34 Sputum Culture - Preliminary YEAST Resulted Accucheck: 165 Critical Care - Subjective ROS Limited/Unobtainable: No Interval Events: chest tube in place. with air leak. pt had a tension pneumothorax yesterday. FI02: 100 Vent Support Breath Rate: 26 Vent Support Mode: AC Vent Tidal Volume: 500 Sputum Amount: Moderate PEEP: 10.0 PIP: 38 Tube Feeding Amount: 50 I&O: Intake and Output 06/29/20 06/30/20 19:00 07:00 Intake Total 961.664 ml 950 ml Output Total 895 ml 960 ml Balance 66.664 ml -10 ml Free Water 30 ml 300 ml IV Total 481.664 ml Tube Feeding 450 ml 650 ml Output Urine Total 745 ml 710 ml Chest Tube Drainage Total 150 ml 250 ml # Bowel Movements 3 6 CXR: extensive infiltrate, chest tube in place. ET-Tube: 7.5 ET Position: 22 Labs: Laboratory Tests Test 06/30/20 05:15 06/30/20 05:33 06/30/20 08:13 White Blood Count 9.7 K/UL (4.8-10.8) Red Blood Count 2.89 M/UL (4.20-5.40) L Hemoglobin 9.0 G/DL (12.0-16.0) L Hematocrit 27.1 % (37.0-47.0) L Mean Corpuscular Volume 94 FL (80-99) Mean Corpuscular Hemoglobin 31.3 PG (27.0-31.0) H Mean Corpuscular Hemoglobin Concent 33.3 G/DL (32.0-36.0) Red Cell Distribution Width 18.5 % (11.6-14.8) H Platelet Count 74 K/UL (150-450) L Mean Platelet Volume 10.3 FL (6.5-10.1) H Neutrophils (%) (Auto) % (45.0-75.0) Lymphocytes (%) (Auto) % (20.0-45.0) Monocytes (%) (Auto) % (1.0-10.0) Eosinophils (%) (Auto) % (0.0-3.0) Basophils (%) (Auto) % (0.0-2.0) Differential Total Cells Counted 100 Neutrophils % (Manual) 95 % (45-75) H Lymphocytes % (Manual) 4 % (20-45) L Monocytes % (Manual) 1 % (1-10) Eosinophils % (Manual) 0 % (0-3) Basophils % (Manual) 0 % (0-2) Band Neutrophils 0 % (0-8) Platelet Estimate Decreased L Platelet Morphology Normal Hypochromasia 1+ Anisocytosis 1+ Sodium Level 151 MMOL/L (136-145) H Potassium Level 4.0 MMOL/L (3.5-5.1) Chloride Level 116 MMOL/L (98-107) H Carbon Dioxide Level 27 MMOL/L (21-32) Anion Gap 8 mmol/L (5-15) Blood Urea Nitrogen 28 mg/dL (7-18) H Creatinine 0.8 MG/DL (0.55-1.30) Estimat Glomerular Filtration Rate > 60 mL/min (>60) Glucose Level 154 MG/DL (74-106) H Calcium Level 7.7 MG/DL (8.5-10.1) L Phosphorus Level 3.0 MG/DL (2.5-4.9) Magnesium Level 2.1 MG/DL (1.8-2.4) Total Bilirubin 0.7 MG/DL (0.2-1.0) Aspartate Amino Transf (AST/SGOT) 35 U/L (15-37) Alanine Aminotransferase (ALT/SGPT) 43 U/L (12-78) Alkaline Phosphatase 47 U/L (46-116) Total Protein 4.6 G/DL (6.4-8.2) L Albumin 1.2 G/DL (3.4-5.0) L Globulin 3.4 g/dL Albumin/Globulin Ratio 0.4 (1.0-2.7) L POC Whole Blood Glucose Pending Arterial Blood pH 7.527 (7.350-7.450) Arterial Blood Partial Pressure CO2 30.1 mmHg (35.0-45.0) L Arterial Blood Partial Pressure O2 128.8 mmHg (75.0-100.0) H Arterial Blood HCO3 24.4 mmol/L (22.0-26.0) Arterial Blood Oxygen Saturation 97.8 % (95-100) Arterial Blood Base Excess 2 (-2-2) Jonathan Test Positive Elayne Allred MD Jun 30, 2020 10:20
--- NOTE | 2020-06-30 10:40 | General Progress Note ---
Subjective ROS Limited/Unobtainable: No Allergies: Coded Allergies: No Known Allergies (Unverified , 10/16/18) Objective Last 24 Hour Vital Signs Date Time Temp Pulse Resp B/P (MAP) Pulse Ox O2 Delivery O2 Flow Rate FiO2 06/30/20 07:45 158/71 06/30/20 07:08 49 26 100 06/30/20 06:00 53 20 147/88 (107) 99 06/30/20 05:00 67 30 153/78 (103) 95 06/30/20 05:00 Mechanical Ventilator Mechanical Ventilator 06/30/20 04:00 Mechanical Ventilator Mechanical Ventilator 06/30/20 04:00 100 06/30/20 04:00 50 06/30/20 04:00 98.2 50 23 143/84 (103) 100 06/30/20 03:00 50 26 146/83 (104) 100 06/30/20 02:32 48 26 100 06/30/20 02:00 47 30 140/69 (92) 100 06/30/20 01:00 51 24 160/74 (102) 99 06/30/20 00:00 98.0 43 31 151/72 (98) 100 06/30/20 00:00 100 06/30/20 00:00 Mechanical Ventilator Mechanical Ventilator 06/30/20 00:00 52 06/29/20 23:00 97.8 44 31 165/72 (103) 100 06/29/20 22:30 44 26 100 06/29/20 22:00 49 27 124/66 (85) 100 06/29/20 21:00 54 22 132/68 (89) 100 06/29/20 20:00 Mechanical Ventilator Mechanical Ventilator 06/29/20 20:00 56 06/29/20 20:00 46 32 134/50 (78) 99 06/29/20 19:25 51 26 100 06/29/20 19:00 46 26 140/64 (89) 100 06/29/20 18:00 52 26 108/55 (72) 100 06/29/20 18:00 100 06/29/20 17:00 60 46 122/60 (80) 100 06/29/20 16:00 57 06/29/20 16:00 98.9 54 28 126/79 (95) 93 06/29/20 16:00 100 06/29/20 16:00 Mechanical Ventilator Mechanical Ventilator 06/29/20 15:00 58 22 125/67 (86) 88 06/29/20 14:40 54 26 100 06/29/20 14:00 55 25 133/54 (80) 86 06/29/20 13:00 59 28 125/55 (78) 92 06/29/20 12:00 Mechanical Ventilator Mechanical Ventilator 06/29/20 12:00 71 06/29/20 12:00 100 06/29/20 12:00 98.6 76 21 95/55 (68) 90 06/29/20 11:26 67 26 100 06/29/20 11:15 92/43 06/29/20 11:00 72 24 92/43 (59) 99 06/29/20 10:30 69 26 81/36 (51) 97 Intake and Output 06/29/20 06/30/20 19:00 07:00 Intake Total 961.664 ml 950 ml Output Total 895 ml 960 ml Balance 66.664 ml -10 ml Free Water 30 ml 300 ml IV Total 481.664 ml Tube Feeding 450 ml 650 ml Output Urine Total 745 ml 710 ml Chest Tube Drainage Total 150 ml 250 ml # Bowel Movements 3 6 Laboratory Tests 06/30/20 05:15: White Blood Count 9.7, Red Blood Count 2.89L, Hemoglobin 9.0L, Hematocrit 27.1L, Mean Corpuscular Volume 94, Mean Corpuscular Hemoglobin 31.3H, Mean Corpuscular Hemoglobin Concent 33.3, Red Cell Distribution Width 18.5H, Platelet Count 74L, Mean Platelet Volume 10.3H, Neutrophils (%) (Auto) , Lymphocytes (%) (Auto) , Monocytes (%) (Auto) , Eosinophils (%) (Auto) , Basophils (%) (Auto) , Differential Total Cells Counted 100, Neutrophils % (Manual) 95H, Lymphocytes % (Manual) 4L, Monocytes % (Manual) 1, Eosinophils % (Manual) 0, Basophils % (Manual) 0, Band Neutrophils 0, Platelet Estimate DecreasedL, Platelet Morphology Normal, Hypochromasia 1+, Anisocytosis 1+, Sodium Level 151H, Potassium Level 4.0, Chloride Level 116H, Carbon Dioxide Level 27, Anion Gap 8, Blood Urea Nitrogen 28H, Creatinine 0.8, Estimat Glomerular Filtration Rate > 60, Glucose Level 154H, Calcium Level 7.7L, Phosphorus Level 3.0, Magnesium Level 2.1, Total Bilirubin 0.7, Aspartate Amino Transf (AST/SGOT) 35, Alanine Aminotransferase (ALT/SGPT) 43, Alkaline Phosphatase 47, Total Protein 4.6L, Albumin 1.2L, Globulin 3.4, Albumin/Globulin Ratio 0.4L 06/30/20 05:33: POC Whole Blood Glucose [Pending] 06/30/20 08:13: Arterial Blood pH 7.527H, Arterial Blood Partial Pressure CO2 30.1L, Arterial Blood Partial Pressure O2 128.8H, Arterial Blood HCO3 24.4, Arterial Blood Oxygen Saturation 97.8, Arterial Blood Base Excess 2, Jonathan Test Positive Height (Feet): 5 Height (Inches): 3.00 Weight (Pounds): 172 General Appearance: no apparent distress EENT: normal ENT inspection Neck: supple Cardiovascular: normal rate Respiratory/Chest: decreased breath sounds Abdomen: normal bowel sounds, non tender, soft Extremities: non-tender Assessment/Plan Status: stable, not improved, unchanged Assessment/Plan: 1. History of Down syndrome. 2. Dysphagia with G-tube. 3. Seizure disorder. 4. Hypothyroidism. 5. LEANN. 6. Pneumonia. 7. Sepsis. fu H&H prn blood transfusion to keep HGB above 7 ppi GTF hold GI procedures for now stool ob + 1/2 Nehemiah Perez MD Jun 30, 2020 10:40
--- NOTE | 2020-06-30 11:00 | NUR ---
NURSE NOTES: Dr Light assessed patient bedside. Noted was patient has an airleak in the chest tube. MD orders are to titrate PEEP to ZERO. PEEP was at start of 10>8>5. Goal of ZERO. Patient is tolerating. Also to note, patient is no longer SB. If patient's airleak does not improve, MD would like repeat CT Chest. Will continue to closely monitor and follow MD orders.
[2020-06-30] MEDS: DOPamine 400mg/250ml 250 ML IV SCH (11:15)
--- NOTE | 2020-06-30 11:29 | Consultation ---
DATE OF CONSULTATION: 06/30/2020 SURGEON: John Light MD., specialty in Thoracic surgery. REFERRING PHYSICIAN: Elayne Allred MD. HISTORY OF PRESENT ILLNESS: The patient is a 60-year-old resident of a long-term facility who presented to [facility] with shortness of breath. Over the course of her hospitalization, the patient underwent respiratory decompensation requiring mechanical ventilation. Recent chest x-ray demonstrated right-sided tension pneumothorax for which a chest tube was placed. Thoracic surgery was then consulted for further evaluation. PAST MEDICAL HISTORY: Notable for: 1. Down syndrome. 2. Seizure disorder. 3. Hypothyroidism. 4. Dysphagia. PAST SURGICAL HISTORY: Notable for PEG placement. MEDICATIONS: Reviewed. ALLERGIES: The patient has no known drug allergies. FAMILY/SOCIAL HISTORY: Noncontributory. PHYSICAL EXAMINATION: VITAL SIGNS: She is noted to be afebrile. Her vitals are within normal limits. CARDIAC: Regular rate and rhythm. No gallops. No murmur. RESPIRATORY: Clear to auscultation on the left with crackles on the right. There is a chest tube in place with a continuous air leak. ABDOMEN: Soft, nondistended, nontender with normoactive bowel sounds. EXTREMITIES: No evidence of cyanosis, clubbing, or edema. LABORATORY AND DIAGNOSTIC DATA: Laboratory studies performed on June 30, 2020 showed WBC of 9.7, hemoglobin 9, hematocrit 27, and platelet count of 74. Chemistry sodium is 151, potassium 4.0, chloride 116, bicarb 27, BUN is 20, creatinine 0.8, and glucose is 60. A chest x-ray performed on June 29, 2020 demonstrated a right-sided pneumothorax. Chest x-ray performed on June 30, 2020 demonstrated a placement of large bore chest tube in the right hemithorax with a resolution of the pneumothorax. ASSESSMENT/PLAN: This is a 60-year-old female with Down syndrome, who presented with a right-sided tension pneumothorax requiring chest tube decompression. The patient was evaluated at bedside. After reviewing her clinical database, I recommend to turn down the PEEP to a minimal level. If the patient continues to have air leak, suggestive of underlying bronchopleural fistula, then a noncontrast chest CT scan should be ordered. At the present time, I recommend the chest tube to be placed on continuous suction to prevent subcutaneous emphysema. I want to thank you for referring this patient to my attention. If any questions in regards to this patient's clinical care, please do not hesitate to contact me. Crump M.D. DR: Pippa JOB#: [id number] CC: [facility]
--- NOTE | 2020-06-30 11:31 | Cardiology Progress Note ---
Assessment/Plan Assessment/Plan sepsis respiratory failure ards renal insuf bacteremia abn cardiac enzyme due to demand sinus rafael stable thrombocytopenia resolved hypernatremia pneumothorax now s/p chest tube vent support abx wbc bettter 3rd spacing alot cxr pers reviewed there is expansion ontherigh ptx but bilater pulm infiltrates has air leak tsh seems fine sig edema with hypernatremia need nauteresis eventually remains off pressor still at this time hr inthe 40's-60's no sig pauses on tele tele personally reviewed weanign to lower fio2 and peep Subjective ROS Limited/Unobtainable: Yes Subjective on a vent not communicative sleeeping Objective Last 24 Hour Vital Signs Date Time Temp Pulse Resp B/P (MAP) Pulse Ox O2 Delivery O2 Flow Rate FiO2 06/30/20 07:45 158/71 06/30/20 07:08 49 26 100 06/30/20 06:00 53 20 147/88 (107) 99 06/30/20 05:00 67 30 153/78 (103) 95 06/30/20 05:00 Mechanical Ventilator Mechanical Ventilator 06/30/20 04:00 Mechanical Ventilator Mechanical Ventilator 06/30/20 04:00 100 06/30/20 04:00 50 06/30/20 04:00 98.2 50 23 143/84 (103) 100 06/30/20 03:00 50 26 146/83 (104) 100 06/30/20 02:32 48 26 100 06/30/20 02:00 47 30 140/69 (92) 100 06/30/20 01:00 51 24 160/74 (102) 99 06/30/20 00:00 98.0 43 31 151/72 (98) 100 06/30/20 00:00 100 06/30/20 00:00 Mechanical Ventilator Mechanical Ventilator 06/30/20 00:00 52 06/29/20 23:00 97.8 44 31 165/72 (103) 100 06/29/20 22:30 44 26 100 06/29/20 22:00 49 27 124/66 (85) 100 06/29/20 21:00 54 22 132/68 (89) 100 06/29/20 20:00 Mechanical Ventilator Mechanical Ventilator 06/29/20 20:00 56 06/29/20 20:00 46 32 134/50 (78) 99 9/21/20 19:25 51 26 100 06/29/20 19:00 46 26 140/64 (89) 100 06/29/20 18:00 52 26 108/55 (72) 100 06/29/20 18:00 100 06/29/20 17:00 60 46 122/60 (80) 100 06/29/20 16:00 57 06/29/20 16:00 98.9 54 28 126/79 (95) 93 06/29/20 16:00 100 06/29/20 16:00 Mechanical Ventilator Mechanical Ventilator 06/29/20 15:00 58 22 125/67 (86) 88 06/29/20 14:40 54 26 100 06/29/20 14:00 55 25 133/54 (80) 86 06/29/20 13:00 59 28 125/55 (78) 92 06/29/20 12:00 Mechanical Ventilator Mechanical Ventilator 06/29/20 12:00 71 06/29/20 12:00 100 06/29/20 12:00 98.6 76 21 95/55 (68) 90 General Appearance: no apparent distress, alert, on vent, patient on isolation, isolation precautions Neck: supple Cardiovascular: normal rate Respiratory/Chest: crackles/rales, other - resolved ride sided crepitation on cleopatra rihgtr chest wall Abdomen: normal bowel sounds, non tender, soft Extremities: moderate edema Intake and Output 06/29/20 06/30/20 19:00 07:00 Intake Total 961.664 ml 950 ml Output Total 895 ml 960 ml Balance 66.664 ml -10 ml Free Water 30 ml 300 ml IV Total 481.664 ml Tube Feeding 450 ml 650 ml Output Urine Total 745 ml 710 ml Chest Tube Drainage Total 150 ml 250 ml # Bowel Movements 3 6 Laboratory Tests Test 06/30/20 05:15 06/30/20 05:33 06/30/20 08:13 White Blood Count 9.7 K/UL (4.8-10.8) Red Blood Count 2.89 M/UL (4.20-5.40) L Hemoglobin 9.0 G/DL (12.0-16.0) L Hematocrit 27.1 % (37.0-47.0) L Mean Corpuscular Volume 94 FL (80-99) Mean Corpuscular Hemoglobin 31.3 PG (27.0-31.0) H Mean Corpuscular Hemoglobin Concent 33.3 G/DL (32.0-36.0) Red Cell Distribution Width 18.5 % (11.6-14.8) H Platelet Count 74 K/UL (150-450) L Mean Platelet Volume 10.3 FL (6.5-10.1) H Neutrophils (%) (Auto) % (45.0-75.0) Lymphocytes (%) (Auto) % (20.0-45.0) Monocytes (%) (Auto) % (1.0-10.0) Eosinophils (%) (Auto) % (0.0-3.0) Basophils (%) (Auto) % (0.0-2.0) Differential Total Cells Counted 100 Neutrophils % (Manual) 95 % (45-75) H Lymphocytes % (Manual) 4 % (20-45) L Monocytes % (Manual) 1 % (1-10) Eosinophils % (Manual) 0 % (0-3) Basophils % (Manual) 0 % (0-2) Band Neutrophils 0 % (0-8) Platelet Estimate Decreased L Platelet Morphology Normal Hypochromasia 1+ Anisocytosis 1+ Sodium Level 151 MMOL/L (136-145) H Potassium Level 4.0 MMOL/L (3.5-5.1) Chloride Level 116 MMOL/L (98-107) H Carbon Dioxide Level 27 MMOL/L (21-32) Anion Gap 8 mmol/L (5-15) Blood Urea Nitrogen 28 mg/dL (7-18) H Creatinine 0.8 MG/DL (0.55-1.30) Estimat Glomerular Filtration Rate > 60 mL/min (>60) Glucose Level 154 MG/DL (74-106) H Calcium Level 7.7 MG/DL (8.5-10.1) L Phosphorus Level 3.0 MG/DL (2.5-4.9) Magnesium Level 2.1 MG/DL (1.8-2.4) Total Bilirubin 0.7 MG/DL (0.2-1.0) Aspartate Amino Transf (AST/SGOT) 35 U/L (15-37) Alanine Aminotransferase (ALT/SGPT) 43 U/L (12-78) Alkaline Phosphatase 47 U/L (46-116) Total Protein 4.6 G/DL (6.4-8.2) L Albumin 1.2 G/DL (3.4-5.0) L Globulin 3.4 g/dL Albumin/Globulin Ratio 0.4 (1.0-2.7) L POC Whole Blood Glucose Pending Arterial Blood pH 7.527 (7.350-7.450) Arterial Blood Partial Pressure CO2 30.1 mmHg (35.0-45.0) L Arterial Blood Partial Pressure O2 128.8 mmHg (75.0-100.0) H Arterial Blood HCO3 24.4 mmol/L (22.0-26.0) Arterial Blood Oxygen Saturation 97.8 % (95-100) Arterial Blood Base Excess 2 (-2-2) Jonathan Test Positive Microbiology Date/Time Source Procedure Growth Status 06/27/20 19:45 Blood Blood Culture - Preliminary NO GROWTH AFTER 48 HOURS Resulted 06/27/20 19:30 Blood Blood Culture - Preliminary NO GROWTH AFTER 48 HOURS Resulted 06/27/20 16:34 Urine,Clean Catch Urine Culture - Final NO GROWTH AFTER 48 HOURS Complete 06/27/20 16:34 Sputum Gram Stain - Final Resulted 06/27/20 16:34 Sputum Culture - Preliminary YEAST Resulted Josue Pantoja MD Jun 30, 2020 11:31
--- NOTE | 2020-06-30 11:45 | NUR ---
NURSE NOTES: Dr Pantoja assessed patient bedside. Patient with improved SB. Off pressors. VSS. Pt with edema however good UOP. Will continue to monitor and carry out MD orders.
--- NOTE | 2020-06-30 11:46 | Infectious Diseases Prog Note ---
Assessment/Plan ASSESSMENT: sp code blue 06/03 Septic Shock; SP Fever, recurrent- low grade over night Leukocytosis; persistent/fluctuating, improved -06/17 u/a no pyuria -06/16 Bcx NTD (Picc line) -06/14 Bcx NTD ucx Neg sp cx C. parapsilopsis -06/03 u/a no pyuria Pneumonia.- COVID 19 neg x3 Acute hypoxic resp failure on VM> NRB 15l 100%; hypoxic on ABG> now VDRF 06/03- Fio2 80% >100% 06/05> 60% 06/09 >80% 06/10 >95% 06/18 >90% 06/22 >60% 06/23 R tension Pneumothroax sp CT 06/29 -06/30 CXR: Interim complete reexpansion of right lung without evidence of residual pneumothorax. Bilateral diffuse and extensive infiltrates. Markedly improved chest wall subcutaneous emphysema -06/29 CXR: Interim reexpansion of previously demonstrated right pneumothorax, status post large bore chest tube placement. -06/22 CXR: Improved aeration of both lungs. -06/13 CXR:Small bilateral pleural effusions with minor edema. Stable edema with mild worsening in the degree of pleural effusion on the right. -06/09 sp cx Neg 06/08 CXR: Extensive bilateral interstitial and airspace disease appears similar to the prior exam. Moderate to large bilateral pleural effusions appear unchanged. 06/05 CXR: Increasing left upper lobe dense consolidation and likely increasing bilateral pleural fluid. Persistent diffuse dense consolidation elsewhere -06/03 sp cx normal resp marie -06/02 CXR: Increased atelectasis of the right lung, since prior exam of 3 days earlier. New or increased right pleural effusion. Increased left basilar consolidation and/or pleural fluid -COVID Rapid PCR neg 05/31, 05/31, 06/03 -05/30 spc x Group G strep -05/30 CXR: Reduced lung volumes. Patchy bilateral predominantly interstitial pulmonary opacities. Could be from edema and/or pneumonia. There is a broader differential. -legionella ag urine, blasto ab, Histo ab, HIV ab screen, FRANCIS, ANCA neg Persistent, high grade bacteremia- -05/30 Bcx 4/4 sets S. haemolyticus; 05/31 Bcx 3/4 S/ epi; 06/04 Bcx 1.4 S. warnerri; 06/06 Bcx Neg -2d echo: no vegetaions seen ua/ wbc 10-15, nit neg, leuk +1; ucx Neg LEANN; -supratherapeutic vanco levels -Seizure disorder. - Hypothyroidism. - Down syndrome. History of PEG tube placement. [place] resident PLAN: Continue to monitor off abx, if more episode of fever, will start Empiric AB Rx 06/22 SP Meropenem #18, IV AMikacin #7 06/12/20 SP Daptomycin #11 06/10 SP MIcafungin #7, Linezolid #5 06/05 SP Azithromycin #7/7 06/03 SP Ceftriaxone #2 06/02 SP IV Vancomycin #4, Zosyn #4 05/30 SP Cefepime x1, Flagyl x1 - Monitor CBC, BMP. .f/u cx - COVID neg x3 - Monitor chest x-ray. - Monitor the patient's clinical course and labs. Based on those, we will do further recommendation. -f/u Fungitell, asp ag, flow cytometry -poor prognosis Thank you, Dr. Allred, for allowing me to participate in the care of this patient. I will follow the patient with you at this hospitalization. Discussed with RN Subjective Allergies: Coded Allergies: No Known Allergies (Unverified , 10/16/18) *late entry* afebrile >48hrs Fio2 100% on pressors leukocytosis improving Objective Last 24 Hour Vital Signs Date Time Temp Pulse Resp B/P (MAP) Pulse Ox O2 Delivery O2 Flow Rate FiO2 06/30/20 11:15 128/54 06/30/20 07:45 158/71 06/30/20 07:08 49 26 100 06/30/20 06:00 53 20 147/88 (107) 99 06/30/20 05:00 67 30 153/78 (103) 95 06/30/20 05:00 Mechanical Ventilator Mechanical Ventilator 06/30/20 04:00 Mechanical Ventilator Mechanical Ventilator 06/30/20 04:00 100 06/30/20 04:00 50 06/30/20 04:00 98.2 50 23 143/84 (103) 100 06/30/20 03:00 50 26 146/83 (104) 100 06/30/20 02:32 48 26 100 06/30/20 02:00 47 30 140/69 (92) 100 06/30/20 01:00 51 24 160/74 (102) 99 06/30/20 00:00 98.0 43 31 151/72 (98) 100 06/30/20 00:00 100 06/30/20 00:00 Mechanical Ventilator Mechanical Ventilator 06/30/20 00:00 52 06/29/20 23:00 97.8 44 31 165/72 (103) 100 06/29/20 22:30 44 26 100 06/29/20 22:00 49 27 124/66 (85) 100 06/29/20 21:00 54 22 132/68 (89) 100 06/29/20 20:00 Mechanical Ventilator Mechanical Ventilator 06/29/20 20:00 56 06/29/20 20:00 46 32 134/50 (78) 99 06/29/20 19:25 51 26 100 06/29/20 19:00 46 26 140/64 (89) 100 06/29/20 18:00 52 26 108/55 (72) 100 06/29/20 18:00 100 06/29/20 17:00 60 46 122/60 (80) 100 06/29/20 16:00 57 06/29/20 16:00 98.9 54 28 126/79 (95) 93 06/29/20 16:00 100 06/29/20 16:00 Mechanical Ventilator Mechanical Ventilator 06/29/20 15:00 58 22 125/67 (86) 88 06/29/20 14:40 54 26 100 06/29/20 14:00 55 25 133/54 (80) 86 06/29/20 13:00 59 28 125/55 (78) 92 06/29/20 12:00 Mechanical Ventilator Mechanical Ventilator 06/29/20 12:00 71 06/29/20 12:00 100 06/29/20 12:00 98.6 76 21 95/55 (68) 90 Height (Feet): 5 Height (Inches): 3.00 Weight (Pounds): 172 HEENT: No pale conjunctivae. No icterus. ETT in place NECK: No lymphadenopathy. CHEST: Coarse breathing sounds. HEART: S1 and S2. ABDOMEN: Soft. PEG tube in place. EXTREMITIES: No cyanosis at this time . SKIN: no rash Microbiology Date/Time Source Procedure Growth Status 06/27/20 19:45 Blood Blood Culture - Preliminary NO GROWTH AFTER 48 HOURS Resulted 06/27/20 19:30 Blood Blood Culture - Preliminary NO GROWTH AFTER 48 HOURS Resulted 06/27/20 16:34 Urine,Clean Catch Urine Culture - Final NO GROWTH AFTER 48 HOURS Complete 06/27/20 16:34 Sputum Gram Stain - Final Resulted 06/27/20 16:34 Sputum Culture - Preliminary YEAST Resulted Laboratory Tests Test 06/30/20 05:15 06/30/20 05:33 06/30/20 08:13 White Blood Count 9.7 K/UL (4.8-10.8) Red Blood Count 2.89 M/UL (4.20-5.40) L Hemoglobin 9.0 G/DL (12.0-16.0) L Hematocrit 27.1 % (37.0-47.0) L Mean Corpuscular Volume 94 FL (80-99) Mean Corpuscular Hemoglobin 31.3 PG (27.0-31.0) H Mean Corpuscular Hemoglobin Concent 33.3 G/DL (32.0-36.0) Red Cell Distribution Width 18.5 % (11.6-14.8) H Platelet Count 74 K/UL (150-450) L Mean Platelet Volume 10.3 FL (6.5-10.1) H Neutrophils (%) (Auto) % (45.0-75.0) Lymphocytes (%) (Auto) % (20.0-45.0) Monocytes (%) (Auto) % (1.0-10.0) Eosinophils (%) (Auto) % (0.0-3.0) Basophils (%) (Auto) % (0.0-2.0) Differential Total Cells Counted 100 Neutrophils % (Manual) 95 % (45-75) H Lymphocytes % (Manual) 4 % (20-45) L Monocytes % (Manual) 1 % (1-10) Eosinophils % (Manual) 0 % (0-3) Basophils % (Manual) 0 % (0-2) Band Neutrophils 0 % (0-8) Platelet Estimate Decreased L Platelet Morphology Normal Hypochromasia 1+ Anisocytosis 1+ Sodium Level 151 MMOL/L (136-145) H Potassium Level 4.0 MMOL/L (3.5-5.1) Chloride Level 116 MMOL/L (98-107) H Carbon Dioxide Level 27 MMOL/L (21-32) Anion Gap 8 mmol/L (5-15) Blood Urea Nitrogen 28 mg/dL (7-18) H Creatinine 0.8 MG/DL (0.55-1.30) Estimat Glomerular Filtration Rate > 60 mL/min (>60) Glucose Level 154 MG/DL (74-106) H Calcium Level 7.7 MG/DL (8.5-10.1) L Phosphorus Level 3.0 MG/DL (2.5-4.9) Magnesium Level 2.1 MG/DL (1.8-2.4) Total Bilirubin 0.7 MG/DL (0.2-1.0) Aspartate Amino Transf (AST/SGOT) 35 U/L (15-37) Alanine Aminotransferase (ALT/SGPT) 43 U/L (12-78) Alkaline Phosphatase 47 U/L (46-116) Total Protein 4.6 G/DL (6.4-8.2) L Albumin 1.2 G/DL (3.4-5.0) L Globulin 3.4 g/dL Albumin/Globulin Ratio 0.4 (1.0-2.7) L POC Whole Blood Glucose Pending Arterial Blood pH 7.527 (7.350-7.450) Arterial Blood Partial Pressure CO2 30.1 mmHg (35.0-45.0) L Arterial Blood Partial Pressure O2 128.8 mmHg (75.0-100.0) H Arterial Blood HCO3 24.4 mmol/L (22.0-26.0) Arterial Blood Oxygen Saturation 97.8 % (95-100) Arterial Blood Base Excess 2 (-2-2) Jonathan Test Positive Current Medications Medications (Trade) Dose Ordered Sig/Katy Route PRN Reason Start Time Stop Time Status Last Admin Dose Admin Acetaminophen (Tylenol) 650 mg Q4H PRN GT FEVER 06/03/20 11:45 07/03/20 11:44 06/26/20 12:48 Chlorhexidine Gluconate (Alla-Hex 2%) 1 applic DAILY@1999 TOPIC 06/08/20 20:00 09/06/20 19:59 06/29/20 20:00 Clotrimazole (Lotrimin) 1 applic Q12HR TOPIC 06/07/20 13:00 09/05/20 12:59 06/30/20 08:33 Dextrose (Dextrose 50%) 25 ml Q30M PRN IV Hypoglycemia 06/03/20 11:30 08/28/20 11:29 Dextrose (Dextrose 50%) 50 ml Q30M PRN IV Hypoglycemia 06/03/20 11:30 08/28/20 11:29 Dopamine HCl/ Dextrose 250 ml @ 0 mls/hr Q24H IV 06/12/20 11:15 09/10/20 11:14 06/14/20 19:47 Hydrocortisone (Solu-CORTEF) 100 mg EVERY 8 HOURS IV 06/07/20 14:00 09/05/20 13:59 06/30/20 05:36 Insulin Aspart (NovoLOG) Q6HR SUBQ 06/26/20 12:00 09/24/20 11:59 06/30/20 05:37 Insulin Detemir (Levemir) 10 units Q12HR SUBQ 06/26/20 10:00 09/24/20 09:59 06/30/20 08:59 Loperamide HCl (Imodium) 2 mg Q6H PRN NG Diarrhea 06/24/20 10:30 07/24/20 10:29 Midodrine (Pro-Amatine) 10 mg Q8HR GT 06/05/20 14:00 09/03/20 13:59 06/30/20 05:36 Norepinephrine Bitartrate 16 mg/ Dextrose 500 ml @ 0 mls/hr Q24H IV 06/08/20 07:45 07/07/20 12:59 06/12/20 08:43 Phenylephrine HCl 50 mg/Dextrose 250 ml @ 0 mls/hr Q24H PRN IV For hypotension 06/06/20 17:45 07/06/20 17:44 06/08/20 01:49 Potassium Chloride (K-Dur) 40 meq TWICE A DAY GT 06/28/20 12:15 09/26/20 12:14 06/30/20 08:32 Suki Camejo M.D. Jun 30, 2020 11:46
--- NOTE | 2020-06-30 12:15 | NUR ---
NURSE NOTES: Patient observed bedside. Patient continues to be alert, and awake however resting comfortably. Patient responds to care appropriately. Patient does grimace with discomfort when anywhere near her chest tube otherwise does not appear in any acute distress. Patient is being monitored on the court recording monitor with VSS. Pt continues to be afebrile and no BMs. Patient remains orally intubated with ETT 7.5 with vent settings: AC 26 TV 500 FiO2 80% Peep 5. Chest tube continues with air leak and drainage of serous fluid. Oral care has been performed. GT running Vital AF at 50 cc/hr. Patient is with a Gregorio catheter that is patent and draining good urine output with yellow urine. JODY PICC line that is TKO. Patient has BL heel DTI with dressings that are dry and intact. Pt is with 2+ edema. Safety measures are in place with bed locked in the lowest position, safety alarm on, side rails up x 2 with seizure precautions, call light within reach. Will continue to monitor and follow MD orders
--- NOTE | 2020-06-30 13:10 | NUR ---
RADIOLOGY DEPT., CHEST X-RAY DONE.-P.DYE
--- NOTE | 2020-06-30 15:13 | Nephrology Progress Note ---
Assessment/Plan Problem List: (1) LEANN (acute kidney injury) (2) Respiratory failure requiring intubation (3) Down's syndrome (4) Seizure disorder (5) Hypothyroidism Assessment Acute renal failure, likely due to hypotension Acute respiratory distress, hypoxia Seizure disorder Hypothyroidism Down syndrome Full code Fluid challenge with IV fluids and albumin Midodrine for BP above 100 systolic Check TSH level Check Correct level Monitor renal parameters Urine studies Per orders Plan June 30: Labs reviewed. Renal parameters stable. Remains full code. Remains on ventilator. Due for tracheostomy tomorrow. Continue per consultants. Patient has a right chest tube in place at this time. June 29: Labs reviewed. Electrolyte imbalances addressed and supplemented. Remains full code and on ventilator. Continue to monitor renal parameters. Continue per consultants. June 28: Labs reviewed. Serum potassium again low today. Potassium supplement IV and through GT given. Patient remains full code and is on ventilator. Continue per consultants. Continue to monitor electrolytes and renal parameters. June 27: Labs reviewed. Abnormal electrolyte addressed. Remains full code. Remains vented. June 26: Day 27 of hospitalization. Full code. Labs reviewed. Hemoglobin down to 7.5. Electrolyte abnormalities addressed and corrections ordered. Continue to monitor renal parameters. Continue per consultants. Start on Levemir for blood sugar management. Questioning continuation of hydrocortisone? June 25: Labs reviewed. Potassium, phosphorus, hemoglobin, are all low. Potassium and phosphorus IV replacement given. Continue to monitor electrolytes and CBC. Patient remains full code. June 24: Lab reviewed. Low phosphorus low magnesium and low potassium was addressed. Hemoglobin drifting lower. Continue per consultants. Patient remains full code. June 23: Labs reviewed. Patient continues to be on ventilator. D5W for high sodium and also potassium chloride intravenously as supplement given. Hemoglobin 8.4. Continue to monitor electrolytes and renal parameters. June 22: Labs reviewed. Low potassium and high sodium noted. Hemoglobin 8.1 stable. Aim to correct abnormal electrolyte. Continue rest. Will give 2 boluses of D5W 500 cc. June 21: Lab reviewed. Abnormal electrolytes noted and addressed. June 20: Labs reviewed. Potassium supplement given. Patient remains full code. Continue per consultants. June 19: Lab reviewed. Electrolyte abnormalities addressed. Continue per pulmonary and ID. June 18: Lab reviewed. Status unchanged. Serum sodium 151 unchanged. Stable from renal standpoint of view. June 17: Labs reviewed. Status quo. D5W 500 cc IV ordered. Continue to monitor renal parameters. June 16: Status quo. Labs reviewed. Overall condition unchanged. Patient was transfused and hemoglobin higher. Continue current management. Patient remains full code. June 15: Status quo. Overall condition poor. Very low albumin. Edematous. Hypotensive. Hemoglobin lower. Anemia work-up ordered. I favor transfusion 2 units of packed RBCs. Patient remains full code. I favor supportive care only. Will discuss. June 14: Electrolyte abnormalities addressed. Serum creatinine lower. Continue per current management. June 13: Status unchanged. Lab reviewed. Serum potassium 2.7. IV potassium chloride ordered. Serum creatinine low at 1.6 stable. Blood pressure 90s systolic June 12: Status quo. Labs reviewed. Renal parameters stable. Serum creatinine down to 1.6. Medication list reviewed. Continues to be on midodrine. Continue per consultants. June 11: Status quo. Labs reviewed. Electrolytes adjusted. Serum creatinine down to 1.8. Continue per consultants. June 10: Status quo. Labs reviewed. Phosphorus supplement IV given. Serum creatinine 2. Continue per consultants. June 09: Requires less pressors. Albumin bolus given. 1 dose of Lasix IV ordered as the patient severely edematous. Patient serum albumin is very low. Continue per consultants. June 08: Continues to be intubated. Labs reviewed. Serum creatinine 1.9 unchanged. Blood pressure more stable. Off 1 of the pressors. Continue to monitor renal parameters. Continue per consultants. Patient now on hydrocortisone 100 mg every 8 hours. Will decrease IV fluid. Normal saline down to 50 cc an hour. June 07: Intubated. Labs reviewed. Creatinine 1.9 unchanged. Continue same treatment plan. Per consultants. Overall poor prognosis since the patient remains on pressors and her pulmonary status is worsening. June 06: Remains intubated. Labs reviewed. Creatinine 1.9. Blood pressure systolic 90s. Continue per consultants. June 05: Remains intubated. Labs reviewed. Serum creatinine lower to 2. Vancomycin level lower. Remains hypotensive on pressors. Will increase midodrine to 10 mg every 8 hours. Continue per consultants. Continue to monitor renal parameters. June 04: Patient now in ICU. Intubated. On pressors. Labs reviewed. Will increase midodrine. Aim to keep blood pressure over 100 systolic. Will give albumin bolus. Will check vancomycin level which was elevated when checked previously on June 01. Will monitor renal parameters. Continue per consultants. Subjective ROS Limited/Unobtainable: Yes Objective Objective Last 24 Hour Vital Signs Date Time Temp Pulse Resp B/P (MAP) Pulse Ox O2 Delivery O2 Flow Rate FiO2 06/30/20 12:00 57 06/30/20 12:00 Mechanical Ventilator Mechanical Ventilator 06/30/20 12:00 97.0 52 26 130/60 (83) 98 06/30/20 11:32 61 26 90 06/30/20 11:15 128/54 06/30/20 11:00 55 26 128/54 (78) 97 06/30/20 10:00 54 26 139/55 (83) 98 06/30/20 09:00 55 25 132/59 (83) 98 06/30/20 09:00 80 06/30/20 08:15 90 06/30/20 08:00 Mechanical Ventilator Mechanical Ventilator 06/30/20 08:00 80 06/30/20 08:00 98.4 53 25 158/71 (100) 99 06/30/20 07:45 158/71 06/30/20 07:08 49 26 100 06/30/20 07:00 42 26 182/88 (119) 99 06/30/20 06:00 53 20 147/88 (107) 99 06/30/20 05:00 67 30 153/78 (103) 95 06/30/20 05:00 Mechanical Ventilator Mechanical Ventilator 06/30/20 04:00 Mechanical Ventilator Mechanical Ventilator 06/30/20 04:00 100 06/30/20 04:00 50 06/30/20 04:00 98.2 50 23 143/84 (103) 100 06/30/20 03:00 50 26 146/83 (104) 100 06/30/20 02:32 48 26 100 06/30/20 02:00 47 30 140/69 (92) 100 06/30/20 01:00 51 24 160/74 (102) 99 06/30/20 00:00 98.0 43 31 151/72 (98) 100 06/30/20 00:00 100 06/30/20 00:00 Mechanical Ventilator Mechanical Ventilator 06/30/20 00:00 52 06/29/20 23:00 97.8 44 31 165/72 (103) 100 06/29/20 22:30 44 26 100 06/29/20 22:00 49 27 124/66 (85) 100 06/29/20 21:00 54 22 132/68 (89) 100 06/29/20 20:00 Mechanical Ventilator Mechanical Ventilator 06/29/20 20:00 56 06/29/20 20:00 46 32 134/50 (78) 99 06/29/20 19:25 51 26 100 06/29/20 19:00 46 26 140/64 (89) 100 06/29/20 18:00 52 26 108/55 (72) 100 06/29/20 18:00 100 06/29/20 17:00 60 46 122/60 (80) 100 06/29/20 16:00 57 06/29/20 16:00 98.9 54 28 126/79 (95) 93 06/29/20 16:00 100 06/29/20 16:00 Mechanical Ventilator Mechanical Ventilator Intake and Output 06/29/20 06/30/20 19:00 07:00 Intake Total 961.664 ml 950 ml Output Total 895 ml 960 ml Balance 66.664 ml -10 ml Free Water 30 ml 300 ml IV Total 481.664 ml Tube Feeding 450 ml 650 ml Output Urine Total 745 ml 710 ml Chest Tube Drainage Total 150 ml 250 ml # Bowel Movements 3 6 Laboratory Tests 06/30/20 00:25: POC Whole Blood Glucose [Pending] 06/30/20 05:15: White Blood Count 9.7, Red Blood Count 2.89L, Hemoglobin 9.0L, Hematocrit 27.1L, Mean Corpuscular Volume 94, Mean Corpuscular Hemoglobin 31.3H, Mean Corpuscular Hemoglobin Concent 33.3, Red Cell Distribution Width 18.5H, Platelet Count 74L, Mean Platelet Volume 10.3H, Neutrophils (%) (Auto) , Lymphocytes (%) (Auto) , Monocytes (%) (Auto) , Eosinophils (%) (Auto) , Basophils (%) (Auto) , Differential Total Cells Counted 100, Neutrophils % (Manual) 95H, Lymphocytes % (Manual) 4L, Monocytes % (Manual) 1, Eosinophils % (Manual) 0, Basophils % (Manual) 0, Band Neutrophils 0, Platelet Estimate DecreasedL, Platelet Morphology Normal, Hypochromasia 1+, Anisocytosis 1+, Sodium Level 151H, Potassium Level 4.0, Chloride Level 116H, Carbon Dioxide Level 27, Anion Gap 8, Blood Urea Nitrogen 28H, Creatinine 0.8, Estimat Glomerular Filtration Rate > 60, Glucose Level 154H, Calcium Level 7.7L, Phosphorus Level 3.0, Magnesium Level 2.1, Total Bilirubin 0.7, Aspartate Amino Transf (AST/SGOT) 35, Alanine Aminotransferase (ALT/SGPT) 43, Alkaline Phosphatase 47, Total Protein 4.6L, Albumin 1.2L, Globulin 3.4, Albumin/Globulin Ratio 0.4L 06/30/20 05:33: POC Whole Blood Glucose [Pending] 06/30/20 08:13: Arterial Blood pH 7.527H, Arterial Blood Partial Pressure CO2 30.1L, Arterial Blood Partial Pressure O2 128.8H, Arterial Blood HCO3 24.4, Arterial Blood Oxygen Saturation 97.8, Arterial Blood Base Excess 2, Jonathan Test Positive Height (Feet): 5 Height (Inches): 3.00 Weight (Pounds): 172 General Appearance: no apparent distress EENT: other - Continue to be intubated on ventilator Cardiovascular: normal rate Respiratory/Chest: decreased breath sounds - Rate mid 50s Abdomen: distended Keron Pitt MD Jun 30, 2020 15:13
--- NOTE | 2020-06-30 16:30 | NUR ---
NURSE NOTES: Patient observed bedside. Patient is sleeping and resting comfortably. Patient continues to grimace with discomfort when anywhere near her chest tube otherwise does not appear in any acute distress. Patient is being monitored on the rail transit operator with VSS. Pt continues to be afebrile and no BMs. Patient remains orally intubated with ETT 7.5 with vent settings: AC 26 TV 500 FiO2 80% Peep 5. Chest tube continues with air leak and drainage of serous fluid. Oral care has been performed. GT running Vital AF at 50 cc/hr. Patient is with a Gregorio catheter that is patent and draining good urine output with yellow urine. JODY PICC line that is TKO. Pericare performed. Safety measures are in place with bed locked in the lowest position, safety alarm on, side rails up x 2 with seizure precautions, call light within reach. Will continue to monitor and follow MD orders.
--- NOTE | 2020-06-30 17:15 | Internal Med Progress Note ---
Subjective Date of Service: Jun 30, 2020 Physician Name Joni Copeland Attending Physician Elayne Allred MD Current Medications Medications (Trade) Dose Ordered Sig/Katy Route PRN Reason Start Time Stop Time Status Last Admin Dose Admin Acetaminophen (Tylenol) 650 mg Q4H PRN GT FEVER 06/03/20 11:45 07/03/20 11:44 06/26/20 12:48 Chlorhexidine Gluconate (Alla-Hex 2%) 1 applic DAILY@2000 TOPIC 06/08/20 20:00 09/06/20 19:59 06/29/20 20:00 Clotrimazole (Lotrimin) 1 applic Q12HR TOPIC 06/07/20 13:00 09/05/20 12:59 06/30/20 08:33 Dextrose (Dextrose 50%) 25 ml Q30M PRN IV Hypoglycemia 06/03/20 11:30 08/28/20 11:29 Dextrose (Dextrose 50%) 50 ml Q30M PRN IV Hypoglycemia 06/03/20 11:30 08/28/20 11:29 Dopamine HCl/ Dextrose 250 ml @ 0 mls/hr Q24H IV 06/12/20 11:15 07/03/20 23:59 06/14/20 19:47 Hydrocortisone (Solu-CORTEF) 100 mg EVERY 8 HOURS IV 06/07/20 14:00 09/05/20 13:59 06/30/20 14:10 Insulin Aspart (NovoLOG) Q6HR SUBQ 06/26/20 12:00 09/24/20 11:59 06/30/20 05:37 Insulin Detemir (Levemir) 10 units Q12HR SUBQ 06/26/20 10:00 09/24/20 09:59 06/30/20 08:59 Loperamide HCl (Imodium) 2 mg Q6H PRN NG Diarrhea 06/24/20 10:30 07/24/20 10:29 Midodrine (Pro-Amatine) 10 mg Q8HR GT 06/05/20 14:00 09/03/20 13:59 06/30/20 05:36 Norepinephrine Bitartrate 16 mg/ Dextrose 500 ml @ 0 mls/hr Q24H IV 06/08/20 07:45 07/03/20 23:59 06/12/20 08:43 Phenylephrine HCl 50 mg/Dextrose 250 ml @ 0 mls/hr Q24H PRN IV For hypotension 06/06/20 17:45 07/03/20 23:59 06/08/20 01:49 Potassium Chloride (K-Dur) 40 meq TWICE A DAY GT 06/28/20 12:15 09/26/20 12:14 06/30/20 08:32 Allergies: Coded Allergies: No Known Allergies (Unverified , 10/16/18) ROS Limited/Unobtainable: Yes Subjective 59 YO F with Down's syndrome admitted with hypoxia. Now sepsis and pneumonia. Cover for Int Arturo-DR Hawk. ICU. Intubated and sedated Objective Last Vital Signs Date Time Temp Pulse Resp B/P (MAP) Pulse Ox O2 Delivery O2 Flow Rate FiO2 06/30/20 15:06 66 26 90 06/30/20 12:00 Mechanical Ventilator Mechanical Ventilator 06/30/20 12:00 97.0 130/60 (83) 98 Laboratory Tests Test 06/30/20 00:25 06/30/20 05:15 06/30/20 05:33 06/30/20 08:13 POC Whole Blood Glucose Pending Pending White Blood Count 9.7 K/UL (4.8-10.8) Red Blood Count 2.89 M/UL (4.20-5.40) L Hemoglobin 9.0 G/DL (12.0-16.0) L Hematocrit 27.1 % (37.0-47.0) L Mean Corpuscular Volume 94 FL (80-99) Mean Corpuscular Hemoglobin 31.3 PG (27.0-31.0) H Mean Corpuscular Hemoglobin Concent 33.3 G/DL (32.0-36.0) Red Cell Distribution Width 18.5 % (11.6-14.8) H Platelet Count 74 K/UL (150-450) L Mean Platelet Volume 10.3 FL (6.5-10.1) H Neutrophils (%) (Auto) % (45.0-75.0) Lymphocytes (%) (Auto) % (20.0-45.0) Monocytes (%) (Auto) % (1.0-10.0) Eosinophils (%) (Auto) % (0.0-3.0) Basophils (%) (Auto) % (0.0-2.0) Differential Total Cells Counted 100 Neutrophils % (Manual) 95 % (45-75) H Lymphocytes % (Manual) 4 % (20-45) L Monocytes % (Manual) 1 % (1-10) Eosinophils % (Manual) 0 % (0-3) Basophils % (Manual) 0 % (0-2) Band Neutrophils 0 % (0-8) Platelet Estimate Decreased L Platelet Morphology Normal Hypochromasia 1+ Anisocytosis 1+ Sodium Level 151 MMOL/L (136-145) H Potassium Level 4.0 MMOL/L (3.5-5.1) Chloride Level 116 MMOL/L (98-107) H Carbon Dioxide Level 27 MMOL/L (21-32) Anion Gap 8 mmol/L (5-15) Blood Urea Nitrogen 28 mg/dL (7-18) H Creatinine 0.8 MG/DL (0.55-1.30) Estimat Glomerular Filtration Rate > 60 mL/min (>60) Glucose Level 154 MG/DL (74-106) H Calcium Level 7.7 MG/DL (8.5-10.1) L Phosphorus Level 3.0 MG/DL (2.5-4.9) Magnesium Level 2.1 MG/DL (1.8-2.4) Total Bilirubin 0.7 MG/DL (0.2-1.0) Aspartate Amino Transf (AST/SGOT) 35 U/L (15-37) Alanine Aminotransferase (ALT/SGPT) 43 U/L (12-78) Alkaline Phosphatase 47 U/L (46-116) Total Protein 4.6 G/DL (6.4-8.2) L Albumin 1.2 G/DL (3.4-5.0) L Globulin 3.4 g/dL Albumin/Globulin Ratio 0.4 (1.0-2.7) L Arterial Blood pH 7.527 (7.350-7.450) Arterial Blood Partial Pressure CO2 30.1 mmHg (35.0-45.0) L Arterial Blood Partial Pressure O2 128.8 mmHg (75.0-100.0) H Arterial Blood HCO3 24.4 mmol/L (22.0-26.0) Arterial Blood Oxygen Saturation 97.8 % (95-100) Arterial Blood Base Excess 2 (-2-2) Jonathan Test Positive Microbiology Date/Time Source Procedure Growth Status 9/19/20 19:45 Blood Blood Culture - Preliminary NO GROWTH AFTER 48 HOURS Resulted 06/27/20 19:30 Blood Blood Culture - Preliminary NO GROWTH AFTER 48 HOURS Resulted Intake and Output 06/29/20 06/30/20 19:00 07:00 Intake Total 961.664 ml 950 ml Output Total 895 ml 960 ml Balance 66.664 ml -10 ml Free Water 30 ml 300 ml IV Total 481.664 ml Tube Feeding 450 ml 650 ml Output Urine Total 745 ml 710 ml Chest Tube Drainage Total 150 ml 250 ml # Bowel Movements 3 6 Objective General Appearance: WD/WN, no apparent distress, alert EENT: PERRL/EOMI, normal ENT inspection Neck: non-tender, normal alignment, supple, normal inspection Cardiovascular: normal peripheral pulses, normal rate, regular rhythm, no gallop/murmur, no JVD Respiratory/Chest: Mech vent; decreased breath sounds, crackles/rales, rhonchi - bilaterally, expiratory wheezing Abdomen: normal bowel sounds, non tender, soft, no organomegaly, no mass Extremities: normal range of motion Neurologic: animal attendants and trainers II-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 Continue amikacin per ID=Dr Camejo. Pulmonary/Critical care=DR Allred. COVID NEG (2) Sepsis Assessment & Plan: Staph haemolyticus. Continue amikacin per ID=Dr Camejo (3) Down's syndrome (4) Dysphagia Assessment & Plan: S/P PEG (5) Seizure disorder Assessment & Plan: Continue keppra and depakote (6) Hypothyroidism Assessment & Plan: Continue synthroid (7) Acute respiratory failure Assessment & Plan: Pulmonary = Dr Allred; [facility] vent oJni Copeland MD Jun 30, 2020 17:15
--- NOTE | 2020-06-30 17:15 | NUR ---
NURSE NOTES: Patient was cleaned, linens changed. Patient tolerated although continues to grimace when repositioned. VSS and will continue to monitor.
--- NOTE | 2020-06-30 18:30 | NUR ---
NURSE NOTES: RT notified that PEEP dropped to ZERO per order. Patient appears drowsy. Will endorse to BUSTER LUJAN. Addendum: 06/30/20 at 1947 by Nell Peoples RN FIO2 is at 90% not 80% as previously noted.
--- NOTE | 2020-06-30 19:50 | NUR ---
NURSE NOTES: received report from judie rn pt orally intubated-vent o2 sat 100% no acute resp distress note tolerating tube feeding chest tube to suction with yellow color drainage reposition and suction iv infusing well site good reposition and suction
--- NOTE | 2020-06-30 19:51 | NUR ---
HAND-OFF: Report given to TAI Ash. Endorsed to RN that patient is with airleak in the chest tube and now at PEEP at ZERO. If airleak without improvement, patient will need CT Chest tomorrow. Pt with improved SB. Pt is more drowsy this early evening. VSS. Patient does not appear in any acute distress. Chest tube output is serous.
[2020-06-30] MEDS: Dyna-Hex 2% Top Sol 2oz TOPIC SCH (20:55)
--- NOTE | 2020-06-30 22:00 | NUR ---
NURSE NOTES: Repositioned and suction. Tolerating current f102
[2020-07-01] VITALS (24 sets, daily range): BP systolic 113–174; BP diastolic 53–117
--- NOTE | 2020-07-01 | NUR ---
NURSE NOTES: BS 156 INSULIN COVERAGE GIVEN ORDER AND TEMP 1OO.7 MEDICATION GIVEN FOR FEVER AND COOLING MEASURE DONE
[2020-07-01] MEDS: NovoLOG Insulin Flexpen SUBQ SCH ×5 (00:10→23:58)
[2020-07-01] MEDS: Acetaminophen 650mg/20.3ml GT PRN ×3 (00:20→20:07)
--- NOTE | 2020-07-01 02:00 | NUR ---
NURSE NOTES: TEMP <99.4 AX
--- NOTE | 2020-07-01 04:00 | NUR ---
NURSE NOTES: COMPLETE BED BATH ORAL CARE AND BACK CARE DONE
[2020-07-01] MEDS: Hydrocortisone 100mg Inj IV SCH ×3 (05:55→20:07)
[2020-07-01] MEDS: Midodrine 10mg tab GT SCH ×3 (05:55→20:07)
[2020-07-01] MEDS: Norepinephrine Bitartrate 16 MG in D5W 500ml 484 ML IV SCH (05:58)
[2020-07-01 06:00] LABS: HEMATOCRIT 23.8 % (37.0-47.0); HEMOGLOBIN 7.8 G/DL (12.0-16.0); MEAN CORPUSCULAR VOLUME 95 FL (80-99); PLATELET COUNT 63 K/UL (150-450); RED BLOOD COUNT 2.51 M/UL (4.20-5.40); WHITE BLOOD COUNT 9.9 K/UL (4.8-10.8)
--- NOTE | 2020-07-01 06:00 | NUR ---
NURSE NOTES: BS 150 INSULIN COVERAGE GIVEN ORDER
[2020-07-01 06:09] LABS: INR 1.2 (0.9-1.1)
[2020-07-01 06:20] LABS: ALANINE AMINOTRANSFERASE 49 U/L (12-78); ALBUMIN 1.1 G/DL (3.4-5.0); ALBUMIN/GLOBULIN RATIO 0.4 (1.0-2.7); ALKALINE PHOSPHATASE 45 U/L (46-116); ANION GAP 6 mmol/L (5-15); ASPARTATE AMINO TRANSFERASE 34 U/L (15-37); BILIRUBIN,TOTAL 0.6 MG/DL (0.2-1.0); BLOOD UREA NITROGEN 29 mg/dL (7-18); CALCIUM 7.8 MG/DL (8.5-10.1); CARBON DIOXIDE 28 MMOL/L (21-32); CHLORIDE 115 MMOL/L (98-107); CREATININE 0.8 MG/DL (0.55-1.30); PHOSPHORUS 3.2 MG/DL (2.5-4.9); POTASSIUM 3.7 MMOL/L (3.5-5.1); SODIUM 149 MMOL/L (136-145)
--- NOTE | 2020-07-01 07:30 | NUR ---
NURSE NOTES: Report received from TAI Johnson. Pt is lethargic. Able to wake up to light touch. Unable to follow commands. SB on cardiac technician in HR 50's. ETT 7.5/ 22cm at lip line. AC 26, TV500, FiO2 70%, no peep. O2 sat 93-96%. Right chest tube is draining serous yellow liquid. Gregorio in place draining to yellow urine. GT in place receiving Vital AF 1.2 at 50cc/hr. No residual noted. JODY PICC line patient and asymptomatic, open for TKO. Bed in lowest position. Side rails up x3. Will resume plan of care.
--- NOTE | 2020-07-01 08:04 | Nephrology Progress Note ---
Assessment/Plan Problem List: (1) LEANN (acute kidney injury) (2) Respiratory failure requiring intubation (3) Down's syndrome (4) Seizure disorder (5) Hypothyroidism Assessment Acute renal failure, likely due to hypotension Acute respiratory distress, hypoxia Seizure disorder Hypothyroidism Down syndrome Full code Fluid challenge with IV fluids and albumin Midodrine for BP above 100 systolic Check TSH level Check Correct level Monitor renal parameters Urine studies Per orders Plan July 01: Lab reviewed. Renal parameters stable. Full code. Has right chest tube. Planning process for tracheostomy. Defer to chest and general surgeon. June 30: Labs reviewed. Renal parameters stable. Remains full code. Remains on ventilator. Due for tracheostomy tomorrow. Continue per consultants. Patient has a right chest tube in place at this time. June 29: Labs reviewed. Electrolyte imbalances addressed and supplemented. Remains full code and on ventilator. Continue to monitor renal parameters. Continue per consultants. June 28: Labs reviewed. Serum potassium again low today. Potassium supplement IV and through GT given. Patient remains full code and is on ventil ator. Continue per consultants. Continue to monitor electrolytes and renal parameters. June 27: Labs reviewed. Abnormal electrolyte addressed. Remains full code. Remains vented. June 26: Day 27 of hospitalization. Full code. Labs reviewed. Hemoglobin down to 7.5. Electrolyte abnormalities addressed and corrections ordered. Continue to monitor renal parameters. Continue per consultants. Start on Levemir for blood sugar management. Questioning continuation of hydrocortisone? June 25: Labs reviewed. Potassium, phosphorus, hemoglobin, are all low. Potassium and phosphorus IV replacement given. Continue to monitor electrolytes and CBC. Patient remains full code. June 24: Lab reviewed. Low phosphorus low magnesium and low potassium was addressed. Hemoglobin drifting lower. Continue per consultants. Patient remains full code. June 23: Labs reviewed. Patient continues to be on ventilator. D5W for high sodium and also potassium chloride intravenously as supplement given. Hemoglobin 8.4. Continue to monitor electrolytes and renal parameters. June 22: Labs reviewed. Low potassium and high sodium noted. Hemoglobin 8.1 stable. Aim to correct abnormal electrolyte. Continue rest. Will give 2 boluses of D5W 500 cc. June 21: Lab reviewed. Abnormal electrolytes noted and addressed. June 20: Labs reviewed. Potassium supplement given. Patient remains full code. Continue per consultants. June 19: Lab reviewed. Electrolyte abnormalities addressed. Continue per pulmonary and ID. June 18: Lab reviewed. Status unchanged. Serum sodium 151 unchanged. Stable from renal standpoint of view. June 17: Labs reviewed. Status quo. D5W 500 cc IV ordered. Continue to monitor renal parameters. June 16: Status quo. Labs reviewed. Overall condition unchanged. Patient was transfused and hemoglobin higher. Continue current management. Patient remains full code. June 15: Status quo. Overall condition poor. Very low albumin. Edematous. Hypotensive. Hemoglobin lower. Anemia work-up ordered. I favor transfusion 2 units of packed RBCs. Patient remains full code. I favor supportive care only. Will discuss. June 14: Electrolyte abnormalities addressed. Serum creatinine lower. Continue per current management. June 13: Status unchanged. Lab reviewed. Serum potassium 2.7. IV potassium chloride ordered. Serum creatinine low at 1.6 stable. Blood pressure 90s systolic June 12: Status quo. Labs reviewed. Renal parameters stable. Serum creatinine down to 1.6. Medication list reviewed. Continues to be on midodrine. Continue per consultants. June 11: Status quo. Labs reviewed. Electrolytes adjusted. Serum creatinine down to 1.8. Continue per consultants. June 10: Status quo. Labs reviewed. Phosphorus supplement IV given. Serum creatinine 2. Continue per consultants. June 09: Requires less pressors. Albumin bolus given. 1 dose of Lasix IV ordered as the patient severely edematous. Patient serum albumin is very low. Continue per consultants. June 08: Continues to be intubated. Labs reviewed. Serum creatinine 1.9 unchanged. Blood pressure more stable. Off 1 of the pressors. Continue to monitor renal parameters. Continue per consultants. Patient now on hyd rocortisone 100 mg every 8 hours. Will decrease IV fluid. Normal saline down to 50 cc an hour. June 07: Intubated. Labs reviewed. Creatinine 1.9 unchanged. Continue same treatment plan. Per consultants. Overall poor prognosis since the patient rem ains on pressors and her pulmonary status is worsening. June 06: Remains intubated. Labs reviewed. Creatinine 1.9. Blood pressure systolic 90s. Continue per consultants. June 05: Remains intubated. Labs reviewed. Serum creatinine lower to 2. Van comycin level lower. Remains hypotensive on pressors. Will increase midodrine to 10 mg every 8 hours. Continue per consultants. Continue to monitor renal parameters. June 04: Patient now in ICU. Intubated. On pressors. Labs reviewed. Will increase midodrine. Aim to keep blood pressure over 100 systolic. Will give albumin bolus. Will check vancomycin level which was elevated when checked previously on June 01. Will monitor renal parameters. Continue per consultants. Subjective ROS Limited/Unobtainable: Yes Objective Objective Last 24 Hour Vital Signs Date Time Temp Pulse Resp B/P (MAP) Pulse Ox O2 Delivery O2 Flow Rate FiO2 07/01/20 06:00 69 27 125/66 (85) 89 07/01/20 05:58 117/56 07/01/20 05:00 63 25 117/56 (76) 92 07/01/20 04:00 Mechanical Ventilator Mechanical Ventilator 07/01/20 04:00 60 07/01/20 04:00 98.6 62 37 113/79 (90) 94 07/01/20 03:00 66 32 114/53 (73) 93 07/01/20 03:00 66 32 114/53 (73) 93 07/01/20 02:30 63 26 70 07/01/20 02:00 70 07/01/20 02:00 64 26 123/58 (79) 96 07/01/20 01:00 99.8 58 26 120/57 (78) 98 07/01/20 00:50 100.7 07/01/20 00:00 80 07/01/20 00:00 100.7 69 21 128/58 (81) 98 07/01/20 00:00 Mechanical Ventilator Mechanical Ventilator 07/01/20 00:00 63 06/30/20 23:00 65 24 118/62 (80) 96 06/30/20 22:30 59 26 80 06/30/20 22:00 55 26 112/86 (95) 99 06/30/20 21:00 63 06/30/20 21:00 68 16 101/55 (70) 98 06/30/20 20:00 80 06/30/20 20:00 98.8 65 15 109/54 (72) 99 06/30/20 20:00 Mechanical Ventilator Mechanical Ventilator 06/30/20 19:01 98.3 65 24 104/53 (70) 98 06/30/20 18:30 67 26 90 06/30/20 18:00 98.3 60 30 128/60 (82) 99 06/30/20 17:00 66 27 121/60 (80) 98 06/30/20 16:00 66 06/30/20 16:00 Mechanical Ventilator Mechanical Ventilator 06/30/20 16:00 61 26 118/59 (78) 97 06/30/20 15:06 66 26 90 06/30/20 15:00 80 06/30/20 15:00 62 26 109/58 (75) 97 06/30/20 14:00 63 25 111/53 (72) 97 06/30/20 13:00 59 26 118/72 (87) 97 06/30/20 12:00 57 06/30/20 12:00 Mechanical Ventilator Mechanical Ventilator 06/30/20 12:00 97.0 52 26 130/60 (83) 98 06/30/20 11:32 61 26 90 06/30/20 11:15 128/54 06/30/20 11:00 55 26 128/54 (78) 97 06/30/20 10:00 54 26 139/55 (83) 98 06/30/20 09:00 55 25 132/59 (83) 98 06/30/20 09:00 80 06/30/20 08:15 90 Intake and Output 06/30/20 07/01/20 19:00 07:00 Intake Total 725 ml 850 ml Output Total 1325 ml 1550 ml Balance -600 ml -700 ml Free Water 300 ml Tube Feeding 600 ml 550 ml Other 125 ml Output Urine Total 1125 ml 1250 ml Chest Tube Drainage Total 200 ml 300 ml # Bowel Movements 3 4 Laboratory Tests 06/30/20 08:13: Arterial Blood pH 7.527H, Arterial Blood Partial Pressure CO2 30.1L, Arterial Blood Partial Pressure O2 128.8H, Arterial Blood HCO3 24.4, Arterial Blood Oxygen Saturation 97.8, Arterial Blood Base Excess 2, Jonathan Test Positive 07/01/20 04:59: White Blood Count 9.9, Red Blood Count 2.51L, Hemoglobin 7.8L, Hematocrit 23.8L, Mean Corpuscular Volume 95, Mean Corpuscular Hemoglobin 31.0, Mean Corpuscular Hemoglobin Concent 32.7, Red Cell Distribution Width 19.0H, Platelet Count 63L, Mean Platelet Volume 9.3, Neutrophils (%) (Auto) , Lymphocytes (%) (Auto) , Monocytes (%) (Auto) , Eosinophils (%) (Auto) , Basophils (%) (Auto) , Neutrophils % (Manual) [Pending], Lymphocytes % (Manual) [Pending], Platelet Estimate [Pending], Platelet Morphology [Pending], Prothrombin Time 13.0H, Prothromb Time International Ratio 1.2H, Activated Partial Thromboplast Time 28, Sodium Level 149H, Potassium Level 3.7, Chloride Level 115H, Carbon Dioxide Level 28, Anion Gap 6, Blood Urea Nitrogen 29H, Creatinine 0.8, Estimat Glomerular Filtration Rate > 60, Glucose Level 170H, Calcium Level 7.8L, Phosphorus Level 3.2, Magnesium Level 1.9, Total Bilirubin 0.6, Aspartate Amino Transf (AST/SGOT) 34, Alanine Aminotransferase (ALT/SGPT) 49, Alkaline Phosphatase 45L, Total Protein 4.1L, Albumin 1.1L, Globulin 3.0, Albumin/Globulin Ratio 0.4L Height (Feet): 5 Height (Inches): 3.00 Weight (Pounds): 172 General Appearance: no apparent distress EENT: other - Intubated on ventilator Cardiovascular: normal rate Respiratory/Chest: decreased breath sounds, other - Right chest tube in place Keron Pitt MD Jul 01, 2020 08:04
--- NOTE | 2020-07-01 08:30 | NUR ---
NURSE NOTES: Right Chest tube in place, connected to 20mmHG low continuous suction as per order. Serous yellow drainage noted on collection chamber. Dressing dry and intact. Continuos bubbling noted on water seal. With the tubing to patient clamped, bubbling continues. Dr Allred here to see the patient and notified him of the air leak. No new orders for now.
--- NOTE | 2020-07-01 08:33 | Pulmonolgy Critical Care Note ---
Critical Care - Asmt/Plan Problems: (1) Acute respiratory failure (2) Bacteremia (3) Pneumonia (4) Sepsis (5) HCAP (healthcare-associated pneumonia) (6) Seizure disorder (7) Down's syndrome Respiratory: monitor respiratory rate, adjust FIO2, CXR Cardiac: continue pressors, continue to monitor HR/BP Renal: F/U I&O, keep IV fluid, check electrolytes Infectious Disease: check cultures Gastrointestinal: continue feedings/current rate Endocrine: monitor blood sugar, continue sliding scale insulin Hematologic: monitor H/H, transfuse if hgb<8.5 Neurologic: PRN Ativan, keep patient comfortable Affect: PRN ativan Notes Reviewed: senior design engineering specialist, cardio, 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 with: nurses, consultants, field case managermanager urgent care - Objective Last 24 Hour Vital Signs Date Time Temp Pulse Resp B/P (MAP) Pulse Ox O2 Delivery O2 Flow Rate FiO2 07/01/20 06:00 69 27 125/66 (85) 89 07/01/20 05:58 117/56 07/01/20 05:00 63 25 117/56 (76) 92 07/01/20 04:00 Mechanical Ventilator Mechanical Ventilator 07/01/20 04:00 60 07/01/20 04:00 98.6 62 37 113/79 (90) 94 07/01/20 03:00 66 32 114/53 (73) 93 07/01/20 03:00 66 32 114/53 (73) 93 07/01/20 02:30 63 26 70 07/01/20 02:00 70 07/01/20 02:00 64 26 123/58 (79) 96 07/01/20 01:00 99.8 58 26 120/57 (78) 98 07/01/20 00:50 100.7 07/01/20 00:00 80 07/01/20 00:00 100.7 69 21 128/58 (81) 98 07/01/20 00:00 Mechanical Ventilator Mechanical Ventilator 07/01/20 00:00 63 06/30/20 23:00 65 24 118/62 (80) 96 06/30/20 22:30 59 26 80 06/30/20 22:00 55 26 112/86 (95) 99 06/30/20 21:00 63 06/30/20 21:00 68 16 101/55 (70) 98 06/30/20 20:00 80 9/22/20 20:00 98.8 65 15 109/54 (72) 99 06/30/20 20:00 Mechanical Ventilator Mechanical Ventilator 06/30/20 19:01 98.3 65 24 104/53 (70) 98 06/30/20 18:30 67 26 90 06/30/20 18:00 98.3 60 30 128/60 (82) 99 06/30/20 17:00 66 27 121/60 (80) 98 06/30/20 16:00 66 06/30/20 16:00 Mechanical Ventilator Mechanical Ventilator 06/30/20 16:00 61 26 118/59 (78) 97 06/30/20 15:06 66 26 90 06/30/20 15:00 80 06/30/20 15:00 62 26 109/58 (75) 97 06/30/20 14:00 63 25 111/53 (72) 97 06/30/20 13:00 59 26 118/72 (87) 97 06/30/20 12:00 57 06/30/20 12:00 Mechanical Ventilator Mechanical Ventilator 06/30/20 12:00 97.0 52 26 130/60 (83) 98 06/30/20 11:32 61 26 90 06/30/20 11:15 128/54 06/30/20 11:00 55 26 128/54 (78) 97 06/30/20 10:00 54 26 139/55 (83) 98 06/30/20 09:00 55 25 132/59 (83) 98 06/30/20 09:00 80 Status: awake, sedated Condition: critical HEENT: atraumatic, normocephalic Neck: full ROM Lungs: clear, chest wall tender Heart: HR/BP stable Abdomen: soft, non-tender Extremities: no C/C/E Decubiti: location Accucheck: 150 Critical Care - Subjective ROS Limited/Unobtainable: Yes Condition: critical EKG Rhythm: Sinus Rhythm FI02: 70 Vent Support Breath Rate: 26 Vent Support Mode: AC Vent Tidal Volume: 500 Sputum Amount: Moderate PEEP: 0.0 PIP: 50 Tube Feeding Amount: 50 I&O: Intake and Output 06/30/20 07/01/20 19:00 07:00 Intake Total 725 ml 850 ml Output Total 1325 ml 1550 ml Balance -600 ml -700 ml Free Water 300 ml Tube Feeding 600 ml 550 ml Other 125 ml Output Urine Total 1125 ml 1250 ml Chest Tube Drainage Total 200 ml 300 ml # Bowel Movements 3 4 CXR: chest tube and ET tube in place ET-Tube: 7.5 ET Position: 22 Labs: Laboratory Tests Test 07/01/20 04:59 White Blood Count 9.9 K/UL (4.8-10.8) Red Blood Count 2.51 M/UL (4.20-5.40) L Hemoglobin 7.8 G/DL (12.0-16.0) L Hematocrit 23.8 % (37.0-47.0) L Mean Corpuscular Volume 95 FL (80-99) Mean Corpuscular Hemoglobin 31.0 PG (27.0-31.0) Mean Corpuscular Hemoglobin Concent 32.7 G/DL (32.0-36.0) Red Cell Distribution Width 19.0 % (11.6-14.8) H Platelet Count 63 K/UL (150-450) L Mean Platelet Volume 9.3 FL (6.5-10.1) Neutrophils (%) (Auto) % (45.0-75.0) Lymphocytes (%) (Auto) % (20.0-45.0) Monocytes (%) (Auto) % (1.0-10.0) Eosinophils (%) (Auto) % (0.0-3.0) Basophils (%) (Auto) % (0.0-2.0) Differential Total Cells Counted 100 Neutrophils % (Manual) 92 % (45-75) H Lymphocytes % (Manual) 7 % (20-45) L Monocytes % (Manual) 1 % (1-10) Eosinophils % (Manual) 0 % (0-3) Basophils % (Manual) 0 % (0-2) Band Neutrophils 0 % (0-8) Platelet Estimate Decreased L Platelet Morphology Normal Anisocytosis 1+ Prothrombin Time 13.0 SEC (9.30-11.50) H Prothromb Time International Ratio 1.2 (0.9-1.1) H Activated Partial Thromboplast Time 28 SEC (23-33) Sodium Level 149 MMOL/L (136-145) H Potassium Level 3.7 MMOL/L (3.5-5.1) Chloride Level 115 MMOL/L (98-107) H Carbon Dioxide Level 28 MMOL/L (21-32) Anion Gap 6 mmol/L (5-15) Blood Urea Nitrogen 29 mg/dL (7-18) H Creatinine 0.8 MG/DL (0.55-1.30) Estimat Glomerular Filtration Rate > 60 mL/min (>60) Glucose Level 170 MG/DL (74-106) H Calcium Level 7.8 MG/DL (8.5-10.1) L Phosphorus Level 3.2 MG/DL (2.5-4.9) Magnesium Level 1.9 MG/DL (1.8-2.4) Total Bilirubin 0.6 MG/DL (0.2-1.0) Aspartate Amino Transf (AST/SGOT) 34 U/L (15-37) Alanine Aminotransferase (ALT/SGPT) 49 U/L (12-78) Alkaline Phosphatase 45 U/L (46-116) L Total Protein 4.1 G/DL (6.4-8.2) L Albumin 1.1 G/DL (3.4-5.0) L Globulin 3.0 g/dL Albumin/Globulin Ratio 0.4 (1.0-2.7) L Elayne Allred MD Jul 01, 2020 08:33
--- NOTE | 2020-07-01 08:36 | General Progress Note ---
Progress Note Progress Note Pt needs blood transfusion urgently. She can't sign her consents and she doesn't have any next of kin either. Elayne Allred MD Jul 01, 2020 08:36
[2020-07-01] MEDS: Levemir Flexpen SUBQ SCH ×2 (09:06→20:06)
--- NOTE | 2020-07-01 10:30 | General Progress Note ---
Subjective ROS Limited/Unobtainable: No Allergies: Coded Allergies: No Known Allergies (Unverified , 10/16/18) Objective Last 24 Hour Vital Signs Date Time Temp Pulse Resp B/P (MAP) Pulse Ox O2 Delivery O2 Flow Rate FiO2 07/01/20 10:00 55 26 129/77 (94) 92 07/01/20 09:00 99.0 59 26 130/53 (78) 92 07/01/20 08:00 59 26 131/57 (81) 92 07/01/20 07:00 60 28 129/63 (85) 92 07/01/20 06:45 66 26 70 07/01/20 06:00 69 27 125/66 (85) 89 07/01/20 05:58 117/56 07/01/20 05:00 63 25 117/56 (76) 92 07/01/20 04:00 Mechanical Ventilator Mechanical Ventilator 07/01/20 04:00 60 07/01/20 04:00 98.6 62 37 113/79 (90) 94 07/01/20 03:00 66 32 114/53 (73) 93 07/01/20 03:00 66 32 114/53 (73) 93 07/01/20 02:30 63 26 70 07/01/20 02:00 70 07/01/20 02:00 64 26 123/58 (79) 96 07/01/20 01:00 99.8 58 26 120/57 (78) 98 07/01/20 00:50 100.7 07/01/20 00:00 80 07/01/20 00:00 100.7 69 21 128/58 (81) 98 07/01/20 00:00 Mechanical Ventilator Mechanical Ventilator 07/01/20 00:00 63 06/30/20 23:00 65 24 118/62 (80) 96 06/30/20 22:30 59 26 80 06/30/20 22:00 55 26 112/86 (95) 99 06/30/20 21:00 63 06/30/20 21:00 68 16 101/55 (70) 98 06/30/20 20:00 80 06/30/20 20:00 98.8 65 15 109/54 (72) 99 06/30/20 20:00 Mechanical Ventilator Mechanical Ventilator 06/30/20 19:01 98.3 65 24 104/53 (70) 98 06/30/20 18:30 67 26 90 06/30/20 18:00 98.3 60 30 128/60 (82) 99 06/30/20 17:00 66 27 121/60 (80) 98 06/30/20 16:00 66 06/30/20 16:00 Mechanical Ventilator Mechanical Ventilator 06/30/20 16:00 61 26 118/59 (78) 97 06/30/20 15:06 66 26 90 06/30/20 15:00 80 06/30/20 15:00 62 26 109/58 (75) 97 06/30/20 14:00 63 25 111/53 (72) 97 06/30/20 13:00 59 26 118/72 (87) 97 06/30/20 12:00 57 06/30/20 12:00 Mechanical Ventilator Mechanical Ventilator 06/30/20 12:00 97.0 52 26 130/60 (83) 98 06/30/20 11:32 61 26 90 06/30/20 11:15 128/54 06/30/20 11:00 55 26 128/54 (78) 97 Intake and Output 06/30/20 07/01/20 19:00 07:00 Intake Total 725 ml 900 ml Output Total 1325 ml 1620 ml Balance -600 ml -720 ml Free Water 300 ml Tube Feeding 600 ml 600 ml Other 125 ml Output Urine Total 1125 ml 1320 ml Chest Tube Drainage Total 200 ml 300 ml # Bowel Movements 3 4 Laboratory Tests 07/01/20 04:59: White Blood Count 9.9, Red Blood Count 2.51L, Hemoglobin 7.8L, Hematocrit 23.8L, Mean Corpuscular Volume 95, Mean Corpuscular Hemoglobin 31.0, Mean Corpuscular Hemoglobin Concent 32.7, Red Cell Distribution Width 19.0H, Platelet Count 63L, Mean Platelet Volume 9.3, Neutrophils (%) (Auto) , Lymphocytes (%) (Auto) , Monocytes (%) (Auto) , Eosinophils (%) (Auto) , Basophils (%) (Auto) , Differential Total Cells Counted 100, Neutrophils % (Manual) 92H, Lymphocytes % (Manual) 7L, Monocytes % (Manual) 1, Eosinophils % (Manual) 0, Basophils % (Manual) 0, Band Neutrophils 0, Platelet Estimate DecreasedL, Platelet Morphology Normal, Anisocytosis 1+, Prothrombin Time 13.0H, Prothromb Time International Ratio 1.2H, Activated Partial Thromboplast Time 28, Sodium Level 149H, Potassium Level 3.7, Chloride Level 115H, Carbon Dioxide Level 28, Anion Gap 6, Blood Urea Nitrogen 29H, Creatinine 0.8, Estimat Glomerular Filtration Rate > 60, Glucose Level 170H, Calcium Level 7.8L, Phosphorus Level 3.2, Magnesium Level 1.9, Total Bilirubin 0.6, Aspartate Amino Transf (AST/SGOT) 34, Alanine Aminotransferase (ALT/SGPT) 49, Alkaline Phosphatase 45L, Total Protein 4.1L, Albumin 1.1L, Globulin 3.0, Albumin/Globulin Ratio 0.4L Height (Feet): 5 Height (Inches): 3.00 Weight (Pounds): 172 General Appearance: lethargic EENT: normal ENT inspection Neck: supple Cardiovascular: normal rate Respiratory/Chest: decreased breath sounds, other - chest tube Extremities: non-tender Assessment/Plan Status: stable, not improved, unchanged Assessment/Plan: 1. History of Down syndrome. 2. Dysphagia with G-tube. 3. Seizure disorder. 4. Hypothyroidism. 5. LEANN. 6. Pneumonia. 7. Sepsis. fu H&H prn blood transfusion to keep HGB above 7 ppi GTF hold GI procedures for now stool ob + 1/2 Nehemiah Perez MD Jul 01, 2020 10:29
--- NOTE | 2020-07-01 11:05 | NUR ---
RADIOLOGY DEPT., CHEST X-RAY DONE.-P.DYE
[2020-07-01] MEDS: DOPamine 400mg/250ml 250 ML IV SCH (11:15)
--- NOTE | 2020-07-01 11:20 | NUR ---
NURSE NOTES: Started 1 unit pRBC transfusion. Cosigned with TAI Perdomo. Pre-transfusion temp 99.3, HR 65, BP 148/69. Will continue to monitor.
--- NOTE | 2020-07-01 11:41 | NUR ---
NURSE NOTES: PRN Immodium 2mg given via GT for diarrhea.
[2020-07-01] MEDS ORDERED: Tubing IV Secondary IV ONE (13:31)
[2020-07-01] MEDS ORDERED: NS 275ml ONE (13:31)
--- NOTE | 2020-07-01 14:30 | NUR ---
NURSE NOTES: pRBC transfusion is done. Post transfusion temp 99.2, HR 60, BP 151/77. No adverse transfusion reaction noted.
--- NOTE | 2020-07-01 14:54 | NUR ---
NURSE NOTES: Notified Dr Light that patient still has continuos bubbling in water weal chamber even with peep of 0. Order received, noted and carried out.
--- NOTE | 2020-07-01 15:25 | Diagnostic Imaging Report ---
Indication: History of pneumothorax, history of intubation Technique: One view of the chest Comparison: 06/30/2020 Findings: Extensive bilateral diffuse interstitial and airspace infiltrates are unchanged. Right chest tube remains. Left arm PICC is again demonstrated. No pneumothorax. No residual subcutaneous emphysema. Stable satisfactory position of endotracheal tube. The heart is borderline enlarged. Impression: Unchanged, over one day, findings as above.
--- NOTE | 2020-07-01 15:37 | NUR ---
NURSE NOTES: Cleaned patient for moderate amount of 1 brown loose BM. Right chest tube dressing changed with petroleum gauze, 4x4, abdominal pad and silk tapes. RR26, O2 92-94% on 80%. No acute respiratory distress noted. Patient tolerated procedure well.
--- NOTE | 2020-07-01 16:13 | Infectious Diseases Prog Note ---
Assessment/Plan ASSESSMENT: sp code blue 06/03 Septic Shock; SP Fever, recurrent- low grade Leukocytosis; persistent/fluctuating, SP -06/27 Bcx NTD -06/17 u/a no pyuria -06/16 Bcx NTD (Picc line) -06/14 Bcx NTD ucx Neg sp cx C. parapsilopsis -06/03 u/a no pyuria Pneumonia.- COVID 19 neg x3 Acute hypoxic resp failure on VM> NRB 15l 100%; hypoxic on ABG> now VDRF 06/03- Fio2 80% >100% 06/05> 60% 06/09 >80% 06/10 >95% 06/18 >90% 06/22 >60% 06/23 R tension Pneumothroax sp CT 06/29 -06/30 CXR: Interim complete reexpansion of right lung without evidence of residual pneumothorax. Bilateral diffuse and extensive infiltrates. Markedly improved chest wall subcutaneous emphysema -06/29 CXR: Interim reexpansion of previously demonstrated right pneumothorax, status post large bore chest tube placement. -06/22 CXR: Improved aeration of both lungs. -06/13 CXR:Small bilateral pleural effusions with minor edema. Stable edema with mild worsening in the degree of pleural effusion on the right. -06/09 sp cx Neg 06/08 CXR: Extensive bilateral interstitial and airspace disease appears similar to the prior exam. Moderate to large bilateral pleural effusions appear unchanged. 06/05 CXR: Increasing left upper lobe dense consolidation and likely increasing bilateral pleural fluid. Persistent diffuse dense consolidation elsewhere -06/03 sp cx normal resp marie -06/02 CXR: Increased atelectasis of the right lung, since prior exam of 3 days earlier. New or increased right pleural effusion. Increased left basilar consolidation and/or pleural fluid -COVID Rapid PCR neg 05/31, 05/31, 06/03 -05/30 spc x Group G strep -05/30 CXR: Reduced lung volumes. Patchy bilateral predominantly interstitial pulmonary opacities. Could be from edema and/or pneumonia. There is a broader differential. -legionella ag urine, blasto ab, Histo ab, HIV ab screen, FRANCIS, ANCA neg Persistent, high grade bacteremia- -05/30 Bcx 4/4 sets S. haemolyticus; 05/31 Bcx 3/4 S/ epi; 06/04 Bcx 1.4 S. warnerri; 06/06 Bcx Neg -2d echo: no vegetaions seen ua/ wbc 10-15, nit neg, leuk +1; ucx Neg LEANN; -supratherapeutic vanco levels -Seizure disorder. - Hypothyroidism. - Down syndrome. History of PEG tube placement. [place] resident PLAN: Continue to monitor off abx, if more episode of fever, will start Empiric AB Rx 06/22 SP Meropenem #18, IV AMikacin #7 06/12/20 SP Daptomycin #11 06/10 SP MIcafungin #7, Linezolid #5 06/05 SP Azithromycin #7/7 06/03 SP Ceftriaxone #2 06/02 SP IV Vancomycin #4, Zosyn #4 05/30 SP Cefepime x1, Flagyl x1 - Monitor CBC, BMP. .f/u cx - COVID neg x3 - Monitor chest x-ray. - Monitor the patient's clinical course and labs. Based on those, we will do further recommendation. -f/u Fungitell, asp ag, flow cytometry -poor prognosis Thank you, Dr. Allred, for allowing me to participate in the care of this patient. I will follow the patient with you at this hospitalization. Discussed with RN Subjective Allergies: Coded Allergies: No Known Allergies (Unverified , 10/16/18) Tm 100.7 no leukcoytosis Bcx NTD Objective Last 24 Hour Vital Signs Date Time Temp Pulse Resp B/P (MAP) Pulse Ox O2 Delivery O2 Flow Rate FiO2 07/01/20 15:10 48 26 80 07/01/20 15:00 59 38 142/66 (91) 92 07/01/20 14:00 57 28 151/77 (101) 93 07/01/20 13:00 54 26 120/66 (84) 94 07/01/20 12:04 72 07/01/20 12:00 Mechanical Ventilator Mechanical Ventilator 07/01/20 12:00 99.3 62 28 138/67 (90) 95 07/01/20 11:20 80 07/01/20 11:16 69 26 80 07/01/20 11:00 58 26 138/62 (87) 91 07/01/20 10:00 55 26 129/77 (94) 92 07/01/20 09:00 99.0 59 26 130/53 (78) 92 07/01/20 08:06 56 07/01/20 08:00 70 07/01/20 08:00 Mechanical Ventilator Mechanical Ventilator 07/01/20 08:00 59 26 131/57 (81) 92 07/01/20 07:00 60 28 129/63 (85) 92 07/01/20 06:45 66 26 70 07/01/20 06:00 69 27 125/66 (85) 89 07/01/20 05:58 117/56 07/01/20 05:00 63 25 117/56 (76) 92 07/01/20 04:00 Mechanical Ventilator Mechanical Ventilator 07/01/20 04:00 60 07/01/20 04:00 98.6 62 37 113/79 (90) 94 07/01/20 03:00 66 32 114/53 (73) 93 07/01/20 03:00 66 32 114/53 (73) 93 07/01/20 02:30 63 26 70 07/01/20 02:00 70 07/01/20 02:00 64 26 123/58 (79) 96 07/01/20 01:00 99.8 58 26 120/57 (78) 98 07/01/20 00:50 100.7 07/01/20 00:00 80 07/01/20 00:00 100.7 69 21 128/58 (81) 98 07/01/20 00:00 Mechanical Ventilator Mechanical Ventilator 07/01/20 00:00 63 06/30/20 23:00 65 24 118/62 (80) 96 06/30/20 22:30 59 26 80 06/30/20 22:00 55 26 112/86 (95) 99 06/30/20 21:00 63 06/30/20 21:00 68 16 101/55 (70) 98 06/30/20 20:00 80 06/30/20 20:00 98.8 65 15 109/54 (72) 99 06/30/20 20:00 Mechanical Ventilator Mechanical Ventilator 06/30/20 19:01 98.3 65 24 104/53 (70) 98 06/30/20 18:30 67 26 90 06/30/20 18:00 98.3 60 30 128/60 (82) 99 06/30/20 17:00 66 27 121/60 (80) 98 Height (Feet): 5 Height (Inches): 3.00 Weight (Pounds): 172 HEENT: No pale conjunctivae. No icterus. ETT in place NECK: No lymphadenopathy. CHEST: Coarse breathing sounds. HEART: S1 and S2. ABDOMEN: Soft. PEG tube in place. EXTREMITIES: No cyanosis at this time . SKIN: no rash Laboratory Tests Test 07/01/20 04:59 White Blood Count 9.9 K/UL (4.8-10.8) Red Blood Count 2.51 M/UL (4.20-5.40) L Hemoglobin 7.8 G/DL (12.0-16.0) L Hematocrit 23.8 % (37.0-47.0) L Mean Corpuscular Volume 95 FL (80-99) Mean Corpuscular Hemoglobin 31.0 PG (27.0-31.0) Mean Corpuscular Hemoglobin Concent 32.7 G/DL (32.0-36.0) Red Cell Distribution Width 19.0 % (11.6-14.8) H Platelet Count 63 K/UL (150-450) L Mean Platelet Volume 9.3 FL (6.5-10.1) Neutrophils (%) (Auto) % (45.0-75.0) Lymphocytes (%) (Auto) % (20.0-45.0) Monocytes (%) (Auto) % (1.0-10.0) Eosinophils (%) (Auto) % (0.0-3.0) Basophils (%) (Auto) % (0.0-2.0) Differential Total Cells Counted 100 Neutrophils % (Manual) 92 % (45-75) H Lymphocytes % (Manual) 7 % (20-45) L Monocytes % (Manual) 1 % (1-10) Eosinophils % (Manual) 0 % (0-3) Basophils % (Manual) 0 % (0-2) Band Neutrophils 0 % (0-8) Platelet Estimate Decreased L Platelet Morphology Normal Anisocytosis 1+ Prothrombin Time 13.0 SEC (9.30-11.50) H Prothromb Time International Ratio 1.2 (0.9-1.1) H Activated Partial Thromboplast Time 28 SEC (23-33) Sodium Level 149 MMOL/L (136-145) H Potassium Level 3.7 MMOL/L (3.5-5.1) Chloride Level 115 MMOL/L (98-107) H Carbon Dioxide Level 28 MMOL/L (21-32) Anion Gap 6 mmol/L (5-15) Blood Urea Nitrogen 29 mg/dL (7-18) H Creatinine 0.8 MG/DL (0.55-1.30) Estimat Glomerular Filtration Rate > 60 mL/min (>60) Glucose Level 170 MG/DL (74-106) H Calcium Level 7.8 MG/DL (8.5-10.1) L Phosphorus Level 3.2 MG/DL (2.5-4.9) Magnesium Level 1.9 MG/DL (1.8-2.4) Total Bilirubin 0.6 MG/DL (0.2-1.0) Aspartate Amino Transf (AST/SGOT) 34 U/L (15-37) Alanine Aminotransferase (ALT/SGPT) 49 U/L (12-78) Alkaline Phosphatase 45 U/L (46-116) L Total Protein 4.1 G/DL (6.4-8.2) L Albumin 1.1 G/DL (3.4-5.0) L Globulin 3.0 g/dL Albumin/Globulin Ratio 0.4 (1.0-2.7) L Current Medications Medications (Trade) Dose Ordered Sig/Katy Route PRN Reason Start Time Stop Time Status Last Admin Dose Admin Acetaminophen (Tylenol) 650 mg Q4H PRN GT FEVER 06/03/20 11:45 07/03/20 11:44 07/01/20 00:20 Chlorhexidine Gluconate (Alla-Hex 2%) 1 applic DAILY@1999 TOPIC 06/08/20 20:00 09/06/20 19:59 06/30/20 20:55 Clotrimazole (Lotrimin) 1 applic Q12HR TOPIC 06/07/20 13:00 09/05/20 12:59 07/01/20 08:31 Dextrose (Dextrose 50%) 25 ml Q30M PRN IV Hypoglycemia 06/03/20 11:30 08/28/20 11:29 Dextrose (Dextrose 50%) 50 ml Q30M PRN IV Hypoglycemia 06/03/20 11:30 08/28/20 11:29 Dopamine HCl/ Dextrose 250 ml @ 0 mls/hr Q24H IV 06/12/20 11:15 07/03/20 23:59 06/14/20 19:47 Hydrocortisone (Solu-CORTEF) 100 mg EVERY 8 HOURS IV 06/07/20 14:00 09/05/20 13:59 07/01/20 13:14 Insulin Aspart (NovoLOG) Q6HR SUBQ 06/26/20 12:00 09/24/20 11:59 07/01/20 11:46 Insulin Detemir (Levemir) 10 units Q12HR SUBQ 06/26/20 10:00 09/24/20 09:59 07/01/20 09:06 Loperamide HCl (Imodium) 2 mg Q6H PRN NG Diarrhea 06/24/20 10:30 07/24/20 10:29 07/01/20 11:41 Midodrine (Pro-Amatine) 10 mg Q8HR GT 06/05/20 14:00 09/03/20 13:59 07/01/20 13:14 Norepinephrine Bitartrate 16 mg/ Dextrose 500 ml @ 0 mls/hr Q24H IV 06/08/20 07:45 07/03/20 23:59 06/12/20 08:43 Phenylephrine HCl 50 mg/Dextrose 250 ml @ 0 mls/hr Q24H PRN IV For hypotension 06/06/20 17:45 07/03/20 23:59 06/08/20 01:49 Potassium Chloride (K-Dur) 40 meq TWICE A DAY GT 06/28/20 12:15 09/26/20 12:14 07/01/20 08:30 Suki Camejo M.D. Jul 01, 2020 16:13
--- NOTE | 2020-07-01 16:28 | NUR ---
CASE MANAGEMENT: REVIEW 07/01/20 SI: LEANN . RESP FAILURE . DOWN'S SYNDROME . RENAL FAILURE / THROMBOCYTOPENIA 100.7 69 21 128/58 98% MECH VENT FIO2 80 H/H 7.8/23.8 PLT 63 NA+ 149 BUN 29 CA+ 7.8 ALB 1.1 IS: K-DUR GT BID DOPAMINE IV Q24HR~TITRATE LEVOPHED IV Q24HR~TITRATE SOLU CORTEF IV Q8HR MIDODRINE GT Q8HR LEVEMIR SQ BID ICU STATUS DCP: [facility]: NEED TWO MD TO CONSENT FOR TRACH
--- NOTE | 2020-07-01 17:23 | NUR ---
NURSE NOTES: PRN Tylenol 650mg given for mild pain. Will reassess pain.
--- NOTE | 2020-07-01 18:00 | NUR ---
NURSE NOTES: 125cc pinkish serous drainage from chest tube noted. Continuos bubbling in water weal chamber still noted. Will follow Dr Light's order. New chest tube dressing dry and intact.
--- NOTE | 2020-07-01 18:59 | Cardiology Progress Note ---
Assessment/Plan Assessment/Plan sepsis respiratory failure ards renal insuf bacteremia abn cardiac enzyme due to demand sinus rafael stable thrombocytopenia resolved hypernatremia pneumothorax now s/p chest tube vent support abx wbc stabel hgb lower 3rd spacing alot cxr pers reviewed not seem changed has air leak tsh seems fine sig edema with hypernatremia na improved remains off pressor still at this time hr inthe 40's-70's no sig pauses on tele tele personally reviewed weanign to lower fio2 and now off peep possible trach soon watch hgb Subjective ROS Limited/Unobtainable: Yes Subjective on a vent not communicative sleeeping Objective Last 24 Hour Vital Signs Date Time Temp Pulse Resp B/P (MAP) Pulse Ox O2 Delivery O2 Flow Rate FiO2 07/01/20 18:00 98.5 67 28 148/75 (99) 96 07/01/20 17:00 63 34 137/63 (87) 91 07/01/20 16:00 80 07/01/20 16:00 99.2 71 28 146/68 (94) 94 07/01/20 16:00 Mechanical Ventilator Mechanical Ventilator 07/01/20 16:00 59 38 142/66 (91) 92 07/01/20 15:12 52 07/01/20 15:10 48 26 80 07/01/20 15:00 59 38 142/66 (91) 92 07/01/20 14:00 57 28 151/77 (101) 93 07/01/20 13:00 54 26 120/66 (84) 94 07/01/20 12:04 72 07/01/20 12:00 Mechanical Ventilator Mechanical Ventilator 07/01/20 12:00 99.3 62 28 138/67 (90) 95 07/01/20 11:20 80 07/01/20 11:16 69 26 80 07/01/20 11:00 58 26 138/62 (87) 91 07/01/20 10:00 55 26 129/77 (94) 92 07/01/20 09:00 99.0 59 26 130/53 (78) 92 07/01/20 08:06 56 07/01/20 08:00 70 07/01/20 08:00 Mechanical Ventilator Mechanical Ventilator 07/01/20 08:00 59 26 131/57 (81) 92 07/01/20 07:00 60 28 129/63 (85) 92 07/01/20 06:45 66 26 70 07/01/20 06:00 69 27 125/66 (85) 89 07/01/20 05:58 117/56 07/01/20 05:00 63 25 117/56 (76) 92 07/01/20 04:00 Mechanical Ventilator Mechanical Ventilator 07/01/20 04:00 60 07/01/20 04:00 98.6 62 37 113/79 (90) 94 07/01/20 03:00 66 32 114/53 (73) 93 07/01/20 03:00 66 32 114/53 (73) 93 07/01/20 02:30 63 26 70 07/01/20 02:00 70 07/01/20 02:00 64 26 123/58 (79) 96 07/01/20 01:00 99.8 58 26 120/57 (78) 98 07/01/20 00:50 100.7 07/01/20 00:00 80 07/01/20 00:00 100.7 69 21 128/58 (81) 98 07/01/20 00:00 Mechanical Ventilator Mechanical Ventilator 07/01/20 00:00 63 06/30/20 23:00 65 24 118/62 (80) 96 06/30/20 22:30 59 26 80 06/30/20 22:00 55 26 112/86 (95) 99 06/30/20 21:00 63 06/30/20 21:00 68 16 101/55 (70) 98 06/30/20 20:00 80 06/30/20 20:00 98.8 65 15 109/54 (72) 99 06/30/20 20:00 Mechanical Ventilator Mechanical Ventilator 06/30/20 19:01 98.3 65 24 104/53 (70) 98 General Appearance: no apparent distress, on vent, patient on isolation, isolation precautions Neck: supple Cardiovascular: normal rate Respiratory/Chest: crackles/rales - anternmro,ly left side upper Abdomen: normal bowel sounds, non tender, soft Extremities: moderate edema Intake and Output 06/30/20 07/01/20 19:00 07:00 Intake Total 725 ml 900 ml Output Total 1325 ml 1620 ml Balance -600 ml -720 ml Free Water 300 ml Tube Feeding 600 ml 600 ml Other 125 ml Output Urine Total 1125 ml 1320 ml Chest Tube Drainage Total 200 ml 300 ml # Bowel Movements 3 4 Laboratory Tests Test 06/30/20 23:59 07/01/20 04:59 07/01/20 17:27 POC Whole Blood Glucose Pending 180 MG/DL (74-106) H White Blood Count 9.9 K/UL (4.8-10.8) Red Blood Count 2.51 M/UL (4.20-5.40) L Hemoglobin 7.8 G/DL (12.0-16.0) L Hematocrit 23.8 % (37.0-47.0) L Mean Corpuscular Volume 95 FL (80-99) Mean Corpuscular Hemoglobin 31.0 PG (27.0-31.0) Mean Corpuscular Hemoglobin Concent 32.7 G/DL (32.0-36.0) Red Cell Distribution Width 19.0 % (11.6-14.8) H Platelet Count 63 K/UL (150-450) L Mean Platelet Volume 9.3 FL (6.5-10.1) Neutrophils (%) (Auto) % (45.0-75.0) Lymphocytes (%) (Auto) % (20.0-45.0) Monocytes (%) (Auto) % (1.0-10.0) Eosinophils (%) (Auto) % (0.0-3.0) Basophils (%) (Auto) % (0.0-2.0) Differential Total Cells Counted 100 Neutrophils % (Manual) 92 % (45-75) H Lymphocytes % (Manual) 7 % (20-45) L Monocytes % (Manual) 1 % (1-10) Eosinophils % (Manual) 0 % (0-3) Basophils % (Manual) 0 % (0-2) Band Neutrophils 0 % (0-8) Platelet Estimate Decreased L Platelet Morphology Normal Anisocytosis 1+ Prothrombin Time 13.0 SEC (9.30-11.50) H Prothromb Time International Ratio 1.2 (0.9-1.1) H Activated Partial Thromboplast Time 28 SEC (23-33) Sodium Level 149 MMOL/L (136-145) H Potassium Level 3.7 MMOL/L (3.5-5.1) Chloride Level 115 MMOL/L (98-107) H Carbon Dioxide Level 28 MMOL/L (21-32) Anion Gap 6 mmol/L (5-15) Blood Urea Nitrogen 29 mg/dL (7-18) H Creatinine 0.8 MG/DL (0.55-1.30) Estimat Glomerular Filtration Rate > 60 mL/min (>60) Glucose Level 170 MG/DL (74-106) H Calcium Level 7.8 MG/DL (8.5-10.1) L Phosphorus Level 3.2 MG/DL (2.5-4.9) Magnesium Level 1.9 MG/DL (1.8-2.4) Total Bilirubin 0.6 MG/DL (0.2-1.0) Aspartate Amino Transf (AST/SGOT) 34 U/L (15-37) Alanine Aminotransferase (ALT/SGPT) 49 U/L (12-78) Alkaline Phosphatase 45 U/L (46-116) L Total Protein 4.1 G/DL (6.4-8.2) L Albumin 1.1 G/DL (3.4-5.0) L Globulin 3.0 g/dL Albumin/Globulin Ratio 0.4 (1.0-2.7) L Josue Pantoja MD Jul 01, 2020 18:59
--- NOTE | 2020-07-01 19:04 | Internal Med Progress Note ---
Subjective Date of Service: Jul 01, 2020 Physician Name Joni Copeland Attending Physician Elayne Allred MD Current Medications Medications (Trade) Dose Ordered Sig/Katy Route PRN Reason Start Time Stop Time Status Last Admin Dose Admin Acetaminophen (Tylenol) 650 mg Q4H PRN GT FEVER 06/03/20 11:45 07/03/20 11:44 07/01/20 00:20 Acetaminophen (Tylenol) 650 mg Q4H PRN GT For Pain 07/01/20 17:15 07/31/20 17:14 07/01/20 17:23 Chlorhexidine Gluconate (Alla-Hex 2%) 1 applic DAILY@2000 TOPIC 06/08/20 20:00 09/06/20 19:59 06/30/20 20:55 Clotrimazole (Lotrimin) 1 applic Q12HR TOPIC 06/07/20 13:00 09/05/20 12:59 07/01/20 08:31 Dextrose (Dextrose 50%) 25 ml Q30M PRN IV Hypoglycemia 06/03/20 11:30 08/28/20 11:29 Dextrose (Dextrose 50%) 50 ml Q30M PRN IV Hypoglycemia 06/03/20 11:30 08/28/20 11:29 Dopamine HCl/ Dextrose 250 ml @ 0 mls/hr Q24H IV 06/12/20 11:15 07/03/20 23:59 06/14/20 19:47 Hydrocortisone (Solu-CORTEF) 100 mg EVERY 8 HOURS IV 06/07/20 14:00 09/05/20 13:59 07/01/20 13:14 Insulin Aspart (NovoLOG) Q6HR SUBQ 06/26/20 12:00 09/24/20 11:59 07/01/20 17:33 Insulin Detemir (Levemir) 10 units Q12HR SUBQ 06/26/20 10:00 09/24/20 09:59 07/01/20 09:06 Loperamide HCl (Imodium) 2 mg Q6H PRN NG Diarrhea 06/24/20 10:30 07/24/20 10:29 07/01/20 11:41 Midodrine (Pro-Amatine) 10 mg Q8HR GT 06/05/20 14:00 09/03/20 13:59 07/01/20 13:14 Norepinephrine Bitartrate 16 mg/ Dextrose 500 ml @ 0 mls/hr Q24H IV 06/08/20 07:45 07/03/20 23:59 06/12/20 08:43 Phenylephrine HCl 50 mg/Dextrose 250 ml @ 0 mls/hr Q24H PRN IV For hypotension 06/06/20 17:45 07/03/20 23:59 06/08/20 01:49 Potassium Chloride (K-Dur) 40 meq TWICE A DAY GT 06/28/20 12:15 09/26/20 12:14 07/01/20 17:24 Allergies: Coded Allergies: No Known Allergies (Unverified , 10/16/18) ROS Limited/Unobtainable: Yes Subjective 59 YO F with Down's syndrome admitted with hypoxia. Now sepsis and pneumonia. Cover for Int Med-DR Hawk. ICU. Intubated and sedated Objective Last Vital Signs Date Time Temp Pulse Resp B/P (MAP) Pulse Ox O2 Delivery O2 Flow Rate FiO2 07/01/20 18:00 98.5 67 28 148/75 (99) 96 07/01/20 16:00 80 07/01/20 16:00 Mechanical Ventilator Mechanical Ventilator Laboratory Tests Test 06/30/20 23:59 07/01/20 04:59 07/01/20 17:27 POC Whole Blood Glucose Pending 180 MG/DL (74-106) H White Blood Count 9.9 K/UL (4.8-10.8) Red Blood Count 2.51 M/UL (4.20-5.40) L Hemoglobin 7.8 G/DL (12.0-16.0) L Hematocrit 23.8 % (37.0-47.0) L Mean Corpuscular Volume 95 FL (80-99) Mean Corpuscular Hemoglobin 31.0 PG (27.0-31.0) Mean Corpuscular Hemoglobin Concent 32.7 G/DL (32.0-36.0) Red Cell Distribution Width 19.0 % (11.6-14.8) H Platelet Count 63 K/UL (150-450) L Mean Platelet Volume 9.3 FL (6.5-10.1) Neutrophils (%) (Auto) % (45.0-75.0) Lymphocytes (%) (Auto) % (20.0-45.0) Monocytes (%) (Auto) % (1.0-10.0) Eosinophils (%) (Auto) % (0.0-3.0) Basophils (%) (Auto) % (0.0-2.0) Differential Total Cells Counted 100 Neutrophils % (Manual) 92 % (45-75) H Lymphocytes % (Manual) 7 % (20-45) L Monocytes % (Manual) 1 % (1-10) Eosinophils % (Manual) 0 % (0-3) Basophils % (Manual) 0 % (0-2) Band Neutrophils 0 % (0-8) Platelet Estimate Decreased L Platelet Morphology Normal Anisocytosis 1+ Prothrombin Time 13.0 SEC (9.30-11.50) H Prothromb Time International Ratio 1.2 (0.9-1.1) H Activated Partial Thromboplast Time 28 SEC (23-33) Sodium Level 149 MMOL/L (136-145) H Potassium Level 3.7 MMOL/L (3.5-5.1) Chloride Level 115 MMOL/L (98-107) H Carbon Dioxide Level 28 MMOL/L (21-32) Anion Gap 6 mmol/L (5-15) Blood Urea Nitrogen 29 mg/dL (7-18) H Creatinine 0.8 MG/DL (0.55-1.30) Estimat Glomerular Filtration Rate > 60 mL/min (>60) Glucose Level 170 MG/DL (74-106) H Calcium Level 7.8 MG/DL (8.5-10.1) L Phosphorus Level 3.2 MG/DL (2.5-4.9) Magnesium Level 1.9 MG/DL (1.8-2.4) Total Bilirubin 0.6 MG/DL (0.2-1.0) Aspartate Amino Transf (AST/SGOT) 34 U/L (15-37) Alanine Aminotransferase (ALT/SGPT) 49 U/L (12-78) Alkaline Phosphatase 45 U/L (46-116) L Total Protein 4.1 G/DL (6.4-8.2) L Albumin 1.1 G/DL (3.4-5.0) L Globulin 3.0 g/dL Albumin/Globulin Ratio 0.4 (1.0-2.7) L Intake and Output 06/30/20 07/01/20 19:00 07:00 Intake Total 725 ml 900 ml Output Total 1325 ml 1620 ml Balance -600 ml -720 ml Free Water 300 ml Tube Feeding 600 ml 600 ml Other 125 ml Output Urine Total 1125 ml 1320 ml Chest Tube Drainage Total 200 ml 300 ml # Bowel Movements 3 4 Objective General Appearance: WD/WN, no apparent distress, alert EENT: PERRL/EOMI, normal ENT inspection Neck: non-tender, normal alignment, supple, normal inspection Cardiovascular: normal peripheral pulses, normal rate, regular rhythm, no gallop/murmur, no JVD Respiratory/Chest: Mech vent; decreased breath sounds, crackles/rales, rhonchi - bilaterally, expiratory wheezing Abdomen: normal bowel sounds, non tender, soft, no organomegaly, no mass Extremities: normal range of motion 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 Continue amikacin per ID=Dr Camejo. Pulmonary/Critical care=DR Allred. COVID NEG (2) Sepsis Assessment & Plan: Staph haemolyticus. Continue amikacin per ID=Dr Camejo (3) Down's syndrome (4) Dysphagia Assessment & Plan: S/P PEG (5) Seizure disorder Assessment & Plan: Continue keppra and depakote (6) Hypothyroidism Assessment & Plan: Continue synthroid (7) Acute respiratory failure Assessment & Plan[facility] Joni Copeland MD Jul 01, 2020 19:04
--- NOTE | 2020-07-01 19:08 | NUR ---
RESPIRATORY NOTE: Received pt on AC 26, 500VT, 80%, no PEEP. Pt intubated w/ ETT 7.5 @ 22cm lipline, secured by anchorfast. Pt is awake/disoriented, responds to stimuli. B/S sissy. rhonchi, sxn small amounts of thick/thin, pale-yellow secretions. Vent plugged into red outlet, [place] at bedside. Pt in no apparent distress at this time. Will continue to monitor pt.
--- NOTE | 2020-07-01 19:30 | NUR ---
NURSE HAND-OFF REPORT: Latest Vital Signs: Temperature 98.5 , Pulse 63 , B/P 150 /71 , Respiratory Rate 26 , O2 SAT 97 , Mechanical Ventilator, FiO2 80% . Vital Sign Comment: EKG Rhythm: Sinus Rhythm Rhythm change?: N MD Notified?: MD Response: Latest Osorio Fall Score: 70 Fall Risk: High Risk Safety Measures: Call light Within Reach, Bed Alarm Zone 1, Side Rails Side Rails x3, Bed position Low and Locked. Fall Precautions: Yellow Socks Door Sign Patient Fall Education Report given to TAI Hicks.
--- NOTE | 2020-07-01 19:31 | NUR ---
NURSE NOTES: SBAR from TAI De Los Santos. Pt is sleeping able to wake up to light touch. Unable to follow commands. SB to NSR on sparmaker in HR 60s. ETT 7.5/ 22cm at lip line. AC 26, TV500, FiO2 80%, no peep. O2 sat 97%. Right chest tube is draining serous yellow liquid. Gregorio in place draining to yellow urine. GT in place receiving Vital AF 1.2 at 50cc/hr. No residual noted. JODY PICC line patient and asymptomatic, open for TKO. Bed in lowest position. Side rails up x3. Will resume plan of care.
--- NOTE | 2020-07-01 20:00 | NUR ---
NURSE NOTES: Patients temperature noted to be 100F, tylenol 650mg via GT was given and Cooling measures performed. Dr. Camejo at bedside and informed her of the Temperature, no new orders at this time. CHG bath was given. Repositioned patient and oral care performed. Will continue to monitor.
[2020-07-01] MEDS: Dyna-Hex 2% Top Sol 2oz TOPIC SCH (20:06)
--- NOTE | 2020-07-01 22:00 | NUR ---
NURSE NOTES: Patient repositioned and suctioned patient. Oral care performed. Patient is making good urine output. NAD at this time. No BM. Temperature now is 99.0 (ax). HR is 55 SB with good blood pressures.
[2020-07-02] VITALS (24 sets, daily range): BP systolic 125–173; BP diastolic 65–84
--- NOTE | 2020-07-02 | NUR ---
NURSE NOTES: Repositioned and suctioned patient. Clear yellow fluid coming from Chest tube, Chest tube remains secured properly. No respiratory distress noted. vitals remains stable. Will continue to monitor.
--- NOTE | 2020-07-02 04:00 | NUR ---
NURSE NOTES: Sponge bath given. Blood drawn and sent to lab. Patient is afebrile at this time. Making good urine output. NAD at this time. Patient repositioned and oral care provided, range of motioned performed. Vitals are stable, blood pressures stable. Will continue to monitor.
[2020-07-02] MEDS: Midodrine 10mg tab GT SCH ×3 (05:31→22:02)
[2020-07-02] MEDS: Norepinephrine Bitartrate 16 MG in D5W 500ml 484 ML IV SCH (05:31)
[2020-07-02] MEDS: Hydrocortisone 100mg Inj IV SCH ×3 (05:31→22:02)
[2020-07-02] MEDS: NovoLOG Insulin Flexpen SUBQ SCH ×3 (05:31→18:06)
[2020-07-02 05:38] LABS: HEMATOCRIT 29.2 % (37.0-47.0); MEAN CORPUSCULAR VOLUME 94 FL (80-99); PLATELET COUNT 78 K/UL (150-450); RED BLOOD COUNT 3.11 M/UL (4.20-5.40); RED CELL DISTRIBUTION WIDTH 17.5 % (11.6-14.8); WHITE BLOOD COUNT 10.4 K/UL (4.8-10.8)
--- NOTE | 2020-07-02 06:00 | NUR ---
NURSE NOTES: Repositioned and suctioned patient. Clear yellow fluid coming from Chest tube, Chest tube remains secured properly. No respiratory distress noted. vitals remains stable. 60ml of yellow fluid total output for the night.
[2020-07-02 06:15] LABS: ALANINE AMINOTRANSFERASE 52 U/L (12-78); ALBUMIN 1.2 G/DL (3.4-5.0); ALBUMIN/GLOBULIN RATIO 0.4 (1.0-2.7); ALKALINE PHOSPHATASE 55 U/L (46-116); ANION GAP 7 mmol/L (5-15); ASPARTATE AMINO TRANSFERASE 27 U/L (15-37); BILIRUBIN,TOTAL 0.7 MG/DL (0.2-1.0); BLOOD UREA NITROGEN 30 mg/dL (7-18); CALCIUM 7.6 MG/DL (8.5-10.1); CARBON DIOXIDE 29 MMOL/L (21-32); CHLORIDE 113 MMOL/L (98-107); CREATININE 0.7 MG/DL (0.55-1.30); PHOSPHORUS 2.3 MG/DL (2.5-4.9); POTASSIUM 3.8 MMOL/L (3.5-5.1); SODIUM 149 MMOL/L (136-145)
--- NOTE | 2020-07-02 06:27 | NUR ---
NURSE NOTES: Called Dr. Light and notified him regarding patients chest tube, I let him know that the patients chest tube air leak has resolved. Dr. Light mentioned to keep patient on intermediate suctioning and to monitor for now and have a CXR done tomorrow morning
--- NOTE | 2020-07-02 07:13 | NUR ---
HAND-OFF: Report given to Sebas LUJAN.
--- NOTE | 2020-07-02 07:14 | NUR ---
NURSE NOTES: Received patient from Kurt LUJAN. Patient is awake, alert and oriented x1. Sinus Bradycardia on the heart monitor, HR 52. Receiving oxygen via ET tube 7.5 22cm at the lip line, vent settings: AC 26, TV 500, FiO2 80%, PEEP 0. G-tube is intact and receiving Vital AF at 50cc/hr. Left Upper arm PICC is patent and intact. Gregorio catheter is intact and draining. Right side chest tube is intact and draining. Bed is locked, placed in lowest position, side rails up x3, bed alarm on, head of bed elevated. Will continue to monitor.
[2020-07-02] MEDS: Levemir Flexpen SUBQ SCH ×2 (08:40→21:06)
--- NOTE | 2020-07-02 08:45 | NUR ---
NURSE NOTES: Turned and repositioned patient, Right side chest tube connected to low intermittent suctioning. Patient's temperature read 99.8 degrees via axillary, removed extra blankets from patient. Medications given as prescribed, will continue to monitor.
[2020-07-02] MEDS ORDERED: Potassium Phosphate 20 MM in NS 275 ML IV ONE (09:30)
--- NOTE | 2020-07-02 09:35 | Nephrology Progress Note ---
Assessment/Plan Problem List: (1) LEANN (acute kidney injury) (2) Respiratory failure requiring intubation (3) Down's syndrome (4) Seizure disorder (5) Hypothyroidism Assessment Acute renal failure, likely due to hypotension Acute respiratory distress, hypoxia Seizure disorder Hypothyroidism Down syndrome Full code Fluid challenge with IV fluids and albumin Midodrine for BP above 100 systolic Check TSH level Check Correct level Monitor renal parameters Urine studies Per orders Plan July 02: Lab reviewed. Renal parameters stable. Full code. Intubated. Has right side chest tube. Continue per consultants. July 01: Lab reviewed. Renal parameters stable. Full code. Has right chest tube. Planning process for tracheostomy. Defer to chest and general surgeon. June 30: Labs reviewed. Renal parameters stable. Remains full code. Remains on ventilator. Due for tracheostomy tomorrow. Continue per consultants. Patient has a right chest tube in place at this time. June 29: Labs reviewed. Electrolyte imbalances addressed and supplemented. Remains full code and on ventilator. Continue to monitor renal parameters. Continue per consultants. June 28: Labs reviewed. Serum potassium again low today. Potassium supplement IV and through GT given. Patient remains full code and is on v entilator. Continue per consultants. Continue to monitor electrolytes and renal parameters. June 27: Labs reviewed. Abnormal electrolyte addressed. Remains full code. Remains vented. June 26: Day 27 of hospitalization. Full code. Labs reviewed. Hemoglobin down to 7.5. Electrolyte abnormalities addressed and corrections ordered. Continue to monitor renal parameters. Continue per consultants. Start on Levemir for blood sugar management. Questioning continuation of hydrocortisone? June 25: Labs reviewed. Potassium, phosphorus, hemoglobin, are all low. Potassium and phosphorus IV replacement given. Continue to monitor electrolytes and CBC. Patient remains full code. June 24: Lab reviewed. Low phosphorus low magnesium and low potassium was addressed. Hemoglobin drifting lower. Continue per consultants. Patient remains full code. June 23: Labs reviewed. Patient continues to be on ventilator. D5W for high sodium and also potassium chloride intravenously as supplement given. Hemoglobin 8.4. Continue to monitor electrolytes and renal parameters. June 22: Labs reviewed. Low potassium and high sodium noted. Hemoglobin 8.1 stable. Aim to correct abnormal electrolyte. Continue rest. Will give 2 boluses of D5W 500 cc. June 21: Lab reviewed. Abnormal electrolytes noted and addressed. June 20: Labs reviewed. Potassium supplement given. Patient remains full code. Continue per consultants. June 19: Lab reviewed. Electrolyte abnormalities addressed. Continue per pulmonary and ID. June 18: Lab reviewed. Status unchanged. Serum sodium 151 unchanged. Stable from renal standpoint of view. June 17: Labs reviewed. Status quo. D5W 500 cc IV ordered. Continue to monitor renal parameters. June 16: Status quo. Labs reviewed. Overall condition unchanged. Patient was transfused and hemoglobin higher. Continue current management. Patient remains full code. June 15: Status quo. Overall condition poor. Very low albumin. Edematous. Hypotensive. Hemoglobin lower. Anemia work-up ordered. I favor transfusion 2 units of packed RBCs. Patient remains full code. I favor supportive care only. Will discuss. June 14: Electrolyte abnormalities addressed. Serum creatinine lower. Continue per current management. June 13: Status unchanged. Lab reviewed. Serum potassium 2.7. IV potassium chloride ordered. Serum creatinine low at 1.6 stable. Blood pressure 90s systolic June 12: Status quo. Labs reviewed. Renal parameters stable. Serum creatinine down to 1.6. Medication list reviewed. Continues to be on midodrine. Continue per consultants. June 11: Status quo. Labs reviewed. Electrolytes adjusted. Serum creatinine down to 1.8. Continue per consultants. June 10: Status quo. Labs reviewed. Phosphorus supplement IV given. Serum creatinine 2. Continue per consultants. June 09: Requires less pressors. Albumin bolus given. 1 dose of Lasix IV ordered as the patient severely edematous. Patient serum albumin is very low. Continue per consultants. June 08: Continues to be intubated. Labs reviewed. Serum creatinine 1.9 unchanged. Blood pressure more stable. Off 1 of the pressors. Continue to monitor renal parameters. Continue per consultants. Patient now on hydrocortisone 100 mg every 8 hours. Will decrease IV fluid. Normal saline down to 50 cc an hour. June 07: Intubated. Labs reviewed. Creatinine 1.9 unchanged. Continue same treatment plan. Per consultants. Overall poor prognosis since the patient remains on pressors and her pulmonary status is worsening. June 06: Remains intubated. Labs reviewed. Creatinine 1.9. Blood pressure systolic 90s. Continue per consultants. June 05: Remains intubated. Labs reviewed. Serum creatinine lower to 2. Vancomycin level lower. Remains hypotensive on pressors. Will increase midodrine to 10 mg every 8 hours. Continue per consultants. Continue to monitor renal parameters. June 04: Patient now in ICU. Intubated. On pressors. Labs reviewed. Will increase midodrine. Aim to keep blood pressure over 100 systolic. Will give albumin bolus. Will check vancomycin level which was elevated when checked previously on June 01. Will monitor renal parameters. Continue per consultants. Subjective ROS Limited/Unobtainable: Yes Objective Objective Last 24 Hour Vital Signs Date Time Temp Pulse Resp B/P (MAP) Pulse Ox O2 Delivery O2 Flow Rate FiO2 07/02/20 09:00 46 26 160/72 (101) 96 07/02/20 08:00 99.8 51 25 171/79 (109) 95 07/02/20 08:00 Mechanical Ventilator Mechanical Ventilator 07/02/20 08:00 80 07/02/20 07:38 43 07/02/20 07:00 49 26 163/70 (101) 95 07/02/20 07:00 44 26 80 07/02/20 06:00 54 26 133/75 (94) 95 07/02/20 05:31 125/69 07/02/20 05:00 60 26 169/75 (106) 97 07/02/20 04:00 Mechanical Ventilator Mechanical Ventilator 07/02/20 04:00 55 07/02/20 04:00 80 07/02/20 04:00 98.8 48 26 146/69 (94) 97 07/02/20 03:00 49 25 130/75 (93) 96 07/02/20 03:00 51 26 80 07/02/20 02:00 75 23 125/69 (87) 97 07/02/20 01:00 63 46 163/84 (110) 95 07/02/20 00:00 Mechanical Ventilator Mechanical Ventilator 07/02/20 00:00 66 39 168/78 (108) 97 07/02/20 00:00 80 07/01/20 23:00 60 26 147/68 (94) 96 07/01/20 22:49 60 26 80 07/01/20 22:00 99.0 51 26 174/75 (108) 95 07/01/20 21:00 99.0 07/01/20 21:00 58 33 167/117 (134) 97 07/01/20 20:00 Mechanical Ventilator Mechanical Ventilator 07/01/20 20:00 61 07/01/20 20:00 80 07/01/20 20:00 100.0 60 28 141/72 (95) 96 07/01/20 19:05 63 26 80 07/01/20 19:00 62 26 150/71 (97) 97 07/01/20 18:00 98.5 67 28 148/75 (99) 96 07/01/20 17:00 63 34 137/63 (87) 91 07/01/20 16:00 80 07/01/20 16:00 99.2 71 28 146/68 (94) 94 07/01/20 16:00 Mechanical Ventilator Mechanical Ventilator 07/01/20 16:00 59 38 142/66 (91) 92 07/01/20 15:12 52 07/01/20 15:10 48 26 80 07/01/20 15:00 59 28 142/66 (91) 92 07/01/20 14:00 57 28 151/77 (101) 93 07/01/20 13:00 54 26 120/66 (84) 94 07/01/20 12:04 72 07/01/20 12:00 Mechanical Ventilator Mechanical Ventilator 07/01/20 12:00 99.3 62 28 138/67 (90) 95 07/01/20 11:20 80 07/01/20 11:16 69 26 80 07/01/20 11:00 58 26 138/62 (87) 91 07/01/20 10:00 55 26 129/77 (94) 92 Intake and Output 07/01/20 07/02/20 19:00 07:00 Intake Total 950 ml 660 ml Output Total 845 ml 960 ml Balance 105 ml -300 ml Free Water 60 ml Tube Feeding 600 ml 600 ml Blood Product 250 ml Other 100 ml Output Urine Total 720 ml 900 ml Chest Tube Drainage Total 125 ml 60 ml # Bowel Movements 2 Laboratory Tests 07/01/20 17:27: POC Whole Blood Glucose 180H 07/01/20 20:05: POC Whole Blood Glucose [Pending] 07/01/20 23:55: POC Whole Blood Glucose [Pending] 07/02/20 04:00: White Blood Count 10.4, Red Blood Count 3.11L, Hemoglobin 10.0L, Hematocrit 29.2L, Mean Corpuscular Volume 94, Mean Corpuscular Hemoglobin 32.2H, Mean Corpuscular Hemoglobin Concent 34.3, Red Cell Distribution Width 17.5H, Platelet Count 78L, Mean Platelet Volume 9.7, Neutrophils (%) (Auto) , Lymphocytes (%) (Auto) , Monocytes (%) (Auto) , Eosinophils (%) (Auto) , Basophils (%) (Auto) , Differential Total Cells Counted 100, Neutrophils % (Manual) 91H, Lymphocytes % (Manual) 7L, Monocytes % (Manual) 2, Eosinophils % (Manual) 0, Basophils % (Manual) 0, Band Neutrophils 0, Platelet Estimate DecreasedL, Platelet Morphology Normal, Anisocytosis 1+, Sodium Level 149H, Potassium Level 3.8, Chloride Level 113H, Carbon Dioxide Level 29, Anion Gap 7, Blood Urea Nitrogen 30H, Creatinine 0.7, Estimat Glomerular Filtration Rate > 60, Glucose Level 193H , Calcium Level 7.6L, Phosphorus Level 2.3L, Magnesium Level 1.9, Total Bilirubin 0.7, Aspartate Amino Transf (AST/SGOT) 27, Alanine Aminotransferase (ALT/SGPT) 52, Alkaline Phosphatase 55, Total Protein 4.6L, Albumin 1.2L, Globulin 3.4, Albumin/Globulin Ratio 0.4L 07/02/20 05:29: POC Whole Blood Glucose [Pending] 07/02/20 08:39: Arterial Blood pH 7.510H, Arterial Blood Partial Pressure CO2 31.4L, Arterial Blood Partial Pressure O2 86.4, Arterial Blood HCO3 24.5, Arterial Blood Oxygen Saturation 96.5, Arterial Blood Base Excess 1.9, Jonathan Test Positive Height (Feet): 5 Height (Inches): 3.00 Weight (Pounds): 172 General Appearance: no apparent distress EENT: other - Intubated on ventilator Cardiovascular: bradycardia Respiratory/Chest: decreased breath sounds, other - Right-sided chest tube Keron Pitt MD Jul 02, 2020 09:35
--- NOTE | 2020-07-02 09:57 | Pulmonolgy Critical Care Note ---
Critical Care - Asmt/Plan Problems: (1) Acute respiratory failure (2) Pneumothorax (3) Bacteremia (4) Pneumonia (5) Sepsis (6) HCAP (healthcare-associated pneumonia) (7) Seizure disorder (8) Down's syndrome (9) Trisomy 21, Down syndrome Respiratory: monitor respiratory rate, adjust FIO2, CXR Cardiac: continue to monitor HR/BP Renal: F/U I&O, check electrolytes Infectious Disease: check cultures Gastrointestinal: continue feedings/current rate Endocrine: monitor blood sugar, check HgA1C Hematologic: monitor H/H Neurologic: PRN Morphine Affect: PRN ativan Prophylaxis: Heparin Time Spent (Minutes): 40 Discussed with: nurses, consultants Critical Care - Objective Last 24 Hour Vital Signs Date Time Temp Pulse Resp B/P (MAP) Pulse Ox O2 Delivery O2 Flow Rate FiO2 07/02/20 09:00 46 26 160/72 (101) 96 07/02/20 08:00 99.8 51 25 171/79 (109) 95 07/02/20 08:00 Mechanical Ventilator Mechanical Ventilator 07/02/20 08:00 80 07/02/20 07:38 43 07/02/20 07:00 49 26 163/70 (101) 95 07/02/20 07:00 44 26 80 07/02/20 06:00 54 26 133/75 (94) 95 07/02/20 05:31 125/69 07/02/20 05:00 60 26 169/75 (106) 97 07/02/20 04:00 Mechanical Ventilator Mechanical Ventilator 07/02/20 04:00 55 07/02/20 04:00 80 07/02/20 04:00 98.8 48 26 146/69 (94) 97 07/02/20 03:00 49 25 130/75 (93) 96 07/02/20 03:00 51 26 80 07/02/20 02:00 75 23 125/69 (87) 97 07/02/20 01:00 63 46 163/84 (110) 95 07/02/20 00:00 Mechanical Ventilator Mechanical Ventilator 07/02/20 00:00 66 39 168/78 (108) 97 07/02/20 00:00 80 07/01/20 23:00 60 26 147/68 (94) 96 07/01/20 22:49 60 26 80 07/01/20 22:00 99.0 51 26 174/75 (108) 95 07/01/20 21:00 99.0 07/01/20 21:00 58 33 167/117 (134) 97 07/01/20 20:00 Mechanical Ventilator Mechanical Ventilator 07/01/20 20:00 61 07/01/20 20:00 80 07/01/20 20:00 100.0 60 28 141/72 (95) 96 07/01/20 19:05 63 26 80 07/01/20 19:00 62 26 150/71 (97) 97 07/01/20 18:00 98.5 67 28 148/75 (99) 96 07/01/20 17:00 63 34 137/63 (87) 91 07/01/20 16:00 80 07/01/20 16:00 99.2 71 28 146/68 (94) 94 07/01/20 16:00 Mechanical Ventilator Mechanical Ventilator 07/01/20 16:00 59 38 142/66 (91) 92 07/01/20 15:12 52 07/01/20 15:10 48 26 80 07/01/20 15:00 59 28 142/66 (91) 92 07/01/20 14:00 57 28 151/77 (101) 93 07/01/20 13:00 54 26 120/66 (84) 94 07/01/20 12:04 72 07/01/20 12:00 Mechanical Ventilator Mechanical Ventilator 07/01/20 12:00 99.3 62 28 138/67 (90) 95 07/01/20 11:20 80 07/01/20 11:16 69 26 80 07/01/20 11:00 58 26 138/62 (87) 91 07/01/20 10:00 55 26 129/77 (94) 92 Status: sedated Condition: critical HEENT: atraumatic, normocephalic Neck: full ROM Heart: HR/BP stable, HR/BP unstable Abdomen: soft, non-tender Extremities: no C/C/E Accucheck: 172 Critical Care - Subjective ROS Limited/Unobtainable: Yes Condition: critical EKG Rhythm: Sinus Rhythm FI02: 80 Vent Support Breath Rate: 26 Vent Support Mode: AC Vent Tidal Volume: 500 Sputum Amount: Small PEEP: 0.0 PIP: 35 Tube Feeding Amount: 50 I&O: Intake and Output 07/01/20 07/02/20 19:00 07:00 Intake Total 950 ml 660 ml Output Total 845 ml 960 ml Balance 105 ml -300 ml Free Water 60 ml Tube Feeding 600 ml 600 ml Blood Product 250 ml Other 100 ml Output Urine Total 720 ml 900 ml Chest Tube Drainage Total 125 ml 60 ml # Bowel Movements 2 CXR: extensive bilateral infiltrate, Chest tube in place ET-Tube: 7.5 ET Position: 22 Labs: Laboratory Tests Test 07/01/20 17:27 07/01/20 20:05 07/01/20 23:55 07/02/20 04:00 POC Whole Blood Glucose 180 MG/DL (74-106) H Pending Pending White Blood Count 10.4 K/UL (4.8-10.8) Red Blood Count 3.11 M/UL (4.20-5.40) L Hemoglobin 10.0 G/DL (12.0-16.0) L Hematocrit 29.2 % (37.0-47.0) L Mean Corpuscular Volume 94 FL (80-99) Mean Corpuscular Hemoglobin 32.2 PG (27.0-31.0) H Mean Corpuscular Hemoglobin Concent 34.3 G/DL (32.0-36.0) Red Cell Distribution Width 17.5 % (11.6-14.8) H Platelet Count 78 K/UL (150-450) L Mean Platelet Volume 9.7 FL (6.5-10.1) Neutrophils (%) (Auto) % (45.0-75.0) Lymphocytes (%) (Auto) % (20.0-45.0) Monocytes (%) (Auto) % (1.0-10.0) Eosinophils (%) (Auto) % (0.0-3.0) Basophils (%) (Auto) % (0.0-2.0) Differential Total Cells Counted 100 Neutrophils % (Manual) 91 % (45-75) H Lymphocytes % (Manual) 7 % (20-45) L Monocytes % (Manual) 2 % (1-10) Eosinophils % (Manual) 0 % (0-3) Basophils % (Manual) 0 % (0-2) Band Neutrophils 0 % (0-8) Platelet Estimate Decreased L Platelet Morphology Normal Anisocytosis 1+ Sodium Level 149 MMOL/L (136-145) H Potassium Level 3.8 MMOL/L (3.5-5.1) Chloride Level 113 MMOL/L (98-107) H Carbon Dioxide Level 29 MMOL/L (21-32) Anion Gap 7 mmol/L (5-15) Blood Urea Nitrogen 30 mg/dL (7-18) H Creatinine 0.7 MG/DL (0.55-1.30) Estimat Glomerular Filtration Rate > 60 mL/min (>60) Glucose Level 193 MG/DL (74-106) H Calcium Level 7.6 MG/DL (8.5-10.1) L Phosphorus Level 2.3 MG/DL (2.5-4.9) L Magnesium Level 1.9 MG/DL (1.8-2.4) Total Bilirubin 0.7 MG/DL (0.2-1.0) Aspartate Amino Transf (AST/SGOT) 27 U/L (15-37) Alanine Aminotransferase (ALT/SGPT) 52 U/L (12-78) Alkaline Phosphatase 55 U/L (46-116) Total Protein 4.6 G/DL (6.4-8.2) L Albumin 1.2 G/DL (3.4-5.0) L Globulin 3.4 g/dL Albumin/Globulin Ratio 0.4 (1.0-2.7) L Test 07/02/20 05:29 07/02/20 08:39 POC Whole Blood Glucose Pending Arterial Blood pH 7.510 (7.350-7.450) Arterial Blood Partial Pressure CO2 31.4 mmHg (35.0-45.0) L Arterial Blood Partial Pressure O2 86.4 mmHg (75.0-100.0) Arterial Blood HCO3 24.5 mmol/L (22.0-26.0) Arterial Blood Oxygen Saturation 96.5 % (95-100) Arterial Blood Base Excess 1.9 (-2-2) Jonathan Test Positive Elayne Allred MD Jul 02, 2020 09:57
[2020-07-02] MEDS: DOPamine 400mg/250ml 250 ML IV SCH (10:41)
--- NOTE | 2020-07-02 11:12 | Infectious Diseases Prog Note ---
Assessment/Plan ASSESSMENT: sp code blue 06/03 Septic Shock; SP Fever, recurrent- low grade Leukocytosis; persistent/fluctuating, SP -06/27 Bcx NTD -06/17 u/a no pyuria -06/16 Bcx NTD (Picc line) -06/14 Bcx NTD ucx Neg sp cx C. parapsilopsis -06/03 u/a no pyuria Pneumonia.- COVID 19 neg x3 Acute hypoxic resp failure on VM> NRB 15l 100%; hypoxic on ABG> now VDRF 06/03- Fio2 80% >100% 06/05> 60% 06/09 >80% 06/10 >95% 06/18 >90% 06/22 >60% 06/23 R tension Pneumothroax sp CT 06/29 -06/30 CXR: Interim complete reexpansion of right lung without evidence of residual pneumothorax. Bilateral diffuse and extensive infiltrates. Markedly improved chest wall subcutaneous emphysema -06/29 CXR: Interim reexpansion of previously demonstrated right pneumothorax, status post large bore chest tube placement. -06/22 CXR: Improved aeration of both lungs. -06/13 CXR:Small bilateral pleural effusions with minor edema. Stable edema with mild worsening in the degree of pleural effusion on the right. -06/09 sp cx Neg 06/08 CXR: Extensive bilateral interstitial and airspace disease appears similar to the prior exam. Moderate to large bilateral pleural effusions appear unchanged. 06/05 CXR: Increasing left upper lobe dense consolidation and likely increasing bilateral pleural fluid. Persistent diffuse dense consolidation elsewhere -06/03 sp cx normal resp marie -06/02 CXR: Increased atelectasis of the right lung, since prior exam of 3 days earlier. New or increased right pleural effusion. Increased left basilar consolidation and/or pleural fluid -COVID Rapid PCR neg 05/31, 05/31, 06/03 -05/30 spc x Group G strep -05/30 CXR: Reduced lung volumes. Patchy bilateral predominantly interstitial pulmonary opacities. Could be from edema and/or pneumonia. There is a broader differential. -legionella ag urine, blasto ab, Histo ab, HIV ab screen, FRANCIS, ANCA neg Persistent, high grade bacteremia- -05/30 Bcx 4/4 sets S. haemolyticus; 05/31 Bcx 3/4 S/ epi; 06/04 Bcx 1.4 S. warnerri; 06/06 Bcx Neg -2d echo: no vegetaions seen ua/ wbc 10-15, nit neg, leuk +1; ucx Neg LEANN; -supratherapeutic vanco levels -Seizure disorder. - Hypothyroidism. - Down syndrome. History of PEG tube placement. [place] resident PLAN: Monitor off abx, if more episode of fever, will start Empiric AB Rx 06/22 SP Meropenem #18, IV AMikacin #7 06/12/20 SP Daptomycin #11 06/10 SP MIcafungin #7, Linezolid #5 06/05 SP Azithromycin #7/7 06/03 SP Ceftriaxone #2 06/02 SP IV Vancomycin #4, Zosyn #4 05/30 SP Cefepime x1, Flagyl x1 - Monitor CBC, BMP. .f/u cx - COVID neg x3 - Monitor chest x-ray. - Monitor the patient's clinical course and labs. Based on those, we will do further recommendation. -f/u Fungitell, asp ag, flow cytometry -poor prognosis Thank you, Dr. Allred, for allowing me to participate in the care of this patient. I will follow the patient with you at this hospitalization. Discussed with RN Subjective Allergies: Coded Allergies: No Known Allergies (Unverified , 10/16/18) Afebrile ON Vent 80% O2 No leukocytosis Objective Last 24 Hour Vital Signs Date Time Temp Pulse Resp B/P (MAP) Pulse Ox O2 Delivery O2 Flow Rate FiO2 07/02/20 10:50 46 26 80 07/02/20 10:00 44 26 173/79 (110) 96 07/02/20 09:00 46 26 160/72 (101) 96 07/02/20 08:00 99.8 51 25 171/79 (109) 95 07/02/20 08:00 Mechanical Ventilator Mechanical Ventilator 07/02/20 08:00 80 07/02/20 07:38 43 07/02/20 07:00 49 26 163/70 (101) 95 07/02/20 07:00 44 26 80 07/02/20 06:00 54 26 133/75 (94) 95 07/02/20 05:31 125/69 07/02/20 05:00 60 26 169/75 (106) 97 07/02/20 04:00 Mechanical Ventilator Mechanical Ventilator 07/02/20 04:00 55 07/02/20 04:00 80 07/02/20 04:00 98.8 48 26 146/69 (94) 97 07/02/20 03:00 49 25 130/75 (93) 96 07/02/20 03:00 51 26 80 07/02/20 02:00 75 23 125/69 (87) 97 07/02/20 01:00 63 46 163/84 (110) 95 07/02/20 00:00 Mechanical Ventilator Mechanical Ventilator 07/02/20 00:00 66 39 168/78 (108) 97 07/02/20 00:00 80 07/01/20 23:00 60 26 147/68 (94) 96 07/01/20 22:49 60 26 80 07/01/20 22:00 99.0 51 26 174/75 (108) 95 07/01/20 21:00 99.0 07/01/20 21:00 58 33 167/117 (134) 97 07/01/20 20:00 Mechanical Ventilator Mechanical Ventilator 07/01/20 20:00 61 07/01/20 20:00 80 07/01/20 20:00 100.0 60 28 141/72 (95) 96 07/01/20 19:05 63 26 80 07/01/20 19:00 62 26 150/71 (97) 97 07/01/20 18:00 98.5 67 28 148/75 (99) 96 07/01/20 17:00 63 34 137/63 (87) 91 07/01/20 16:00 80 07/01/20 16:00 99.2 71 28 146/68 (94) 94 07/01/20 16:00 Mechanical Ventilator Mechanical Ventilator 07/01/20 16:00 59 38 142/66 (91) 92 07/01/20 15:12 52 07/01/20 15:10 48 26 80 07/01/20 15:00 59 28 142/66 (91) 92 07/01/20 14:00 57 28 151/77 (101) 93 07/01/20 13:00 54 26 120/66 (84) 94 07/01/20 12:04 72 07/01/20 12:00 Mechanical Ventilator Mechanical Ventilator 07/01/20 12:00 99.3 62 28 138/67 (90) 95 07/01/20 11:20 80 07/01/20 11:16 69 26 80 Height (Feet): 5 Height (Inches): 3.00 Weight (Pounds): 172 GEN: NAD on Vent HEENT: NCAT, Intubated, Pulm: Equal chest rise and fall B/L, No accessory muscle use ABD: Soft, ND SKIN: Exposed skin with no rash, Normal in color Laboratory Tests Test 07/01/20 17:27 07/01/20 20:05 07/01/20 23:55 07/02/20 04:00 POC Whole Blood Glucose 180 MG/DL (74-106) H Pending Pending White Blood Count 10.4 K/UL (4.8-10.8) Red Blood Count 3.11 M/UL (4.20-5.40) L Hemoglobin 10.0 G/DL (12.0-16.0) L Hematocrit 29.2 % (37.0-47.0) L Mean Corpuscular Volume 94 FL (80-99) Mean Corpuscular Hemoglobin 32.2 PG (27.0-31.0) H Mean Corpuscular Hemoglobin Concent 34.3 G/DL (32.0-36.0) Red Cell Distribution Width 17.5 % (11.6-14.8) H Platelet Count 78 K/UL (150-450) L Mean Platelet Volume 9.7 FL (6.5-10.1) Neutrophils (%) (Auto) % (45.0-75.0) Lymphocytes (%) (Auto) % (20.0-45.0) Monocytes (%) (Auto) % (1.0-10.0) Eosinophils (%) (Auto) % (0.0-3.0) Basophils (%) (Auto) % (0.0-2.0) Differential Total Cells Counted 100 Neutrophils % (Manual) 91 % (45-75) H Lymphocytes % (Manual) 7 % (20-45) L Monocytes % (Manual) 2 % (1-10) Eosinophils % (Manual) 0 % (0-3) Basophils % (Manual) 0 % (0-2) Band Neutrophils 0 % (0-8) Platelet Estimate Decreased L Platelet Morphology Normal Anisocytosis 1+ Sodium Level 149 MMOL/L (136-145) H Potassium Level 3.8 MMOL/L (3.5-5.1) Chloride Level 113 MMOL/L (98-107) H Carbon Dioxide Level 29 MMOL/L (21-32) Anion Gap 7 mmol/L (5-15) Blood Urea Nitrogen 30 mg/dL (7-18) H Creatinine 0.7 MG/DL (0.55-1.30) Estimat Glomerular Filtration Rate > 60 mL/min (>60) Glucose Level 193 MG/DL (74-106) H Calcium Level 7.6 MG/DL (8.5-10.1) L Phosphorus Level 2.3 MG/DL (2.5-4.9) L Magnesium Level 1.9 MG/DL (1.8-2.4) Total Bilirubin 0.7 MG/DL (0.2-1.0) Aspartate Amino Transf (AST/SGOT) 27 U/L (15-37) Alanine Aminotransferase (ALT/SGPT) 52 U/L (12-78) Alkaline Phosphatase 55 U/L (46-116) Total Protein 4.6 G/DL (6.4-8.2) L Albumin 1.2 G/DL (3.4-5.0) L Globulin 3.4 g/dL Albumin/Globulin Ratio 0.4 (1.0-2.7) L Test 07/02/20 05:29 07/02/20 08:39 POC Whole Blood Glucose Pending Arterial Blood pH 7.510 (7.350-7.450) Arterial Blood Partial Pressure CO2 31.4 mmHg (35.0-45.0) L Arterial Blood Partial Pressure O2 86.4 mmHg (75.0-100.0) Arterial Blood HCO3 24.5 mmol/L (22.0-26.0) Arterial Blood Oxygen Saturation 96.5 % (95-100) Arterial Blood Base Excess 1.9 (-2-2) Jonathan Test Positive Current Medications Medications (Trade) Dose Ordered Sig/Katy Route PRN Reason Start Time Stop Time Status Last Admin Dose Admin Acetaminophen (Tylenol) 650 mg Q4H PRN GT FEVER 06/03/20 11:45 07/03/20 11:44 07/01/20 20:07 Acetaminophen (Tylenol) 650 mg Q4H PRN GT For Pain 07/01/20 17:15 07/31/20 17:14 07/01/20 17:23 Chlorhexidine Gluconate (Alla-Hex 2%) 1 applic DAILY@2000 TOPIC 06/08/20 20:00 09/06/20 19:59 07/01/20 20:06 Clotrimazole (Lotrimin) 1 applic Q12HR TOPIC 06/07/20 13:00 09/05/20 12:59 07/02/20 08:41 Dextrose (Dextrose 50%) 25 ml Q30M PRN IV Hypoglycemia 06/03/20 11:30 08/28/20 11:29 Dextrose (Dextrose 50%) 50 ml Q30M PRN IV Hypoglycemia 06/03/20 11:30 08/28/20 11:29 Dopamine HCl/ Dextrose 250 ml @ 0 mls/hr Q24H IV 06/12/20 11:15 07/03/20 23:59 06/14/20 19:47 Hydrocortisone (Solu-CORTEF) 100 mg EVERY 8 HOURS IV 06/07/20 14:00 09/05/20 13:59 07/02/20 05:31 Insulin Aspart (NovoLOG) Q6HR SUBQ 06/26/20 12:00 09/24/20 11:59 07/02/20 05:31 Insulin Detemir (Levemir) 10 units Q12HR SUBQ 06/26/20 10:00 09/24/20 09:59 07/02/20 08:40 Loperamide HCl (Imodium) 2 mg Q6H PRN NG Diarrhea 06/24/20 10:30 07/24/20 10:29 07/01/20 11:41 Midodrine (Pro-Amatine) 10 mg Q8HR GT 06/05/20 14:00 09/03/20 13:59 07/02/20 05:31 Norepinephrine Bitartrate 16 mg/ Dextrose 500 ml @ 0 mls/hr Q24H IV 06/08/20 07:45 07/03/20 23:59 06/12/20 08:43 Phenylephrine HCl 50 mg/Dextrose 250 ml @ 0 mls/hr Q24H PRN IV For hypotension 06/06/20 17:45 07/03/20 23:59 06/08/20 01:49 Potassium Phosphate 20 mm/ Sodium Chloride 281.6667 ml @ 46.944 m... ONCE ONCE IV 07/02/20 09:30 07/02/20 15:29 07/02/20 09:36 Potassium Chloride (K-Dur) 40 meq TWICE A DAY GT 06/28/20 12:15 09/26/20 12:14 07/02/20 08:36 Chencho Corley MD Jul 02, 2020 11:12
--- NOTE | 2020-07-02 12:20 | NUR ---
NURSE NOTES: Patient is afebrile, axillary temperature 99.1. Turned and repositioned patient, will continue to monitor.
--- NOTE | 2020-07-02 13:14 | Diagnostic Imaging Report ---
Indication: Dyspnea Technique: One view of the chest Comparison: none Findings: Endotracheal tube, right chest tube, left arm PICC remain. Bilateral interstitial and airspace infiltrates are unchanged. There is no pneumothorax. Impression: Negative
--- NOTE | 2020-07-02 13:43 | NUR ---
NURSE NOTES: Midodrine held due to patient's blood pressure, 142/80.
--- NOTE | 2020-07-02 14:30 | General Progress Note ---
Subjective ROS Limited/Unobtainable: No Allergies: Coded Allergies: No Known Allergies (Unverified , 10/16/18) Objective Last 24 Hour Vital Signs Date Time Temp Pulse Resp B/P (MAP) Pulse Ox O2 Delivery O2 Flow Rate FiO2 07/02/20 13:00 58 26 142/80 (100) 96 07/02/20 12:00 Mechanical Ventilator Mechanical Ventilator 07/02/20 12:00 80 07/02/20 12:00 99.0 55 24 148/77 (100) 95 07/02/20 11:23 99 07/02/20 11:00 45 26 157/70 (99) 96 07/02/20 10:50 46 26 80 07/02/20 10:00 44 26 173/79 (110) 96 07/02/20 09:00 46 26 160/72 (101) 96 07/02/20 08:00 99.8 51 25 171/79 (109) 95 07/02/20 08:00 Mechanical Ventilator Mechanical Ventilator 07/02/20 08:00 80 07/02/20 07:38 43 07/02/20 07:00 49 26 163/70 (101) 95 07/02/20 07:00 44 26 80 07/02/20 06:00 54 26 133/75 (94) 95 07/02/20 05:31 125/69 07/02/20 05:00 60 26 169/75 (106) 97 07/02/20 04:00 Mechanical Ventilator Mechanical Ventilator 07/02/20 04:00 55 07/02/20 04:00 80 07/02/20 04:00 98.8 48 26 146/69 (94) 97 07/02/20 03:00 49 25 130/75 (93) 96 07/02/20 03:00 51 26 80 07/02/20 02:00 75 23 125/69 (87) 97 07/02/20 01:00 63 46 163/84 (110) 95 07/02/20 00:00 Mechanical Ventilator Mechanical Ventilator 07/02/20 00:00 66 39 168/78 (108) 97 07/02/20 00:00 80 07/01/20 23:00 60 26 147/68 (94) 96 07/01/20 22:49 60 26 80 07/01/20 22:00 99.0 51 26 174/75 (108) 95 07/01/20 21:00 99.0 07/01/20 21:00 58 33 167/117 (134) 97 07/01/20 20:00 Mechanical Ventilator Mechanical Ventilator 07/01/20 20:00 61 07/01/20 20:00 80 07/01/20 20:00 100.0 60 28 141/72 (95) 96 07/01/20 19:05 63 26 80 07/01/20 19:00 62 26 150/71 (97) 97 07/01/20 18:00 98.5 67 28 148/75 (99) 96 07/01/20 17:00 63 34 137/63 (87) 91 07/01/20 16:00 80 07/01/20 16:00 99.2 71 28 146/68 (94) 94 07/01/20 16:00 Mechanical Ventilator Mechanical Ventilator 07/01/20 16:00 59 38 142/66 (91) 92 07/01/20 15:12 52 07/01/20 15:10 48 26 80 07/01/20 15:00 59 28 142/66 (91) 92 Intake and Output 07/01/20 07/02/20 19:00 07:00 Intake Total 950 ml 660 ml Output Total 845 ml 960 ml Balance 105 ml -300 ml Free Water 60 ml Tube Feeding 600 ml 600 ml Blood Product 250 ml Other 100 ml Output Urine Total 720 ml 900 ml Chest Tube Drainage Total 125 ml 60 ml # Bowel Movements 2 Laboratory Tests 07/01/20 17:27: POC Whole Blood Glucose 180H 07/01/20 20:05: POC Whole Blood Glucose [Pending] 07/01/20 23:55: POC Whole Blood Glucose [Pending] 07/02/20 04:00: White Blood Count 10.4, Red Blood Count 3.11L, Hemoglobin 10.0L, Hematocrit 29.2 L, Mean Corpuscular Volume 94, Mean Corpuscular Hemoglobin 32.2H, Mean Corpuscular Hemoglobin Concent 34.3, Red Cell Distribution Width 17.5H, Platelet Count 78L, Mean Platelet Volume 9.7, Neutrophils (%) (Auto) , Lymphocytes (%) (Auto) , Monocytes (%) (Auto) , Eosinophils (%) (Auto) , Basophils (%) (Auto) , Differential Total Cells Counted 100, Neutrophils % (Manual) 91H, Lymphocytes % (Manual) 7L, Monocytes % (Manual) 2, Eosinophils % (Manual) 0, Basophils % (Manual) 0, Band Neutrophils 0, Platelet Estimate DecreasedL, Platelet Morphology Normal, Anisocytosis 1+, Sodium Level 149H, Potassium Level 3.8, Chloride Level 113H, Carbon Dioxide Level 29, Anion Gap 7, Blood Urea Nitrogen 30H, Creatinine 0.7, Estimat Glomerular Filtration Rate > 60, Glucose Level 193H , Calcium Level 7.6L, Phosphorus Level 2.3L, Magnesium Level 1.9, Total Bilirubin 0.7, Aspartate Amino Transf (AST/SGOT) 27, Alanine Aminotransferase (ALT/SGPT) 52, Alkaline Phosphatase 55, Total Protein 4.6L, Albumin 1.2L, Globulin 3.4, Albumin/Globulin Ratio 0.4L 07/02/20 05:29: POC Whole Blood Glucose [Pending] 07/02/20 08:39: Arterial Blood pH 7.510H, Arterial Blood Partial Pressure CO2 31.4L, Arterial Blood Partial Pressure O2 86.4, Arterial Blood HCO3 24.5, Arterial Blood Oxygen Saturation 96.5, Arterial Blood Base Excess 1.9, Jonathan Test Positive Height (Feet): 5 Height (Inches): 3.00 Weight (Pounds): 172 General Appearance: no apparent distress EENT: normal ENT inspection Neck: supple Cardiovascular: normal rate Respiratory/Chest: decreased breath sounds Abdomen: normal bowel sounds, non tender, soft Extremities: non-tender Assessment/Plan Status: stable, not improved, unchanged Assessment/Plan: 1. History of Down syndrome. 2. Dysphagia with G-tube. 3. Seizure disorder. 4. Hypothyroidism. 5. LEANN. 6. Pneumonia. 7. Sepsis. fu H&H prn blood transfusion to keep HGB above 7 ppi GTF hold GI procedures for now stool ob + 1/2 Nehemiah Perez MD Jul 02, 2020 14:30
--- NOTE | 2020-07-02 17:31 | NUR ---
NURSE NOTES: Bed bath given to patient, turned and repositioned. Oral care given to patient, thick clear secretions removed via endotracheal suctioning.
--- NOTE | 2020-07-02 17:35 | Internal Med Progress Note ---
Subjective Date of Service: Jul 02, 2020 Physician Name Joni Copeland Attending Physician Elayne Allred MD Current Medications Medications (Trade) Dose Ordered Sig/Katy Route PRN Reason Start Time Stop Time Status Last Admin Dose Admin Acetaminophen (Tylenol) 650 mg Q4H PRN GT FEVER 06/03/20 11:45 07/03/20 11:44 07/01/20 20:07 Acetaminophen (Tylenol) 650 mg Q4H PRN GT For Pain 07/01/20 17:15 07/31/20 17:14 07/01/20 17:23 Chlorhexidine Gluconate (Alla-Hex 2%) 1 applic DAILY@2000 TOPIC 06/08/20 20:00 09/06/20 19:59 07/01/20 20:06 Clotrimazole (Lotrimin) 1 applic Q12HR TOPIC 06/07/20 13:00 09/05/20 12:59 07/02/20 08:41 Dextrose (Dextrose 50%) 25 ml Q30M PRN IV Hypoglycemia 06/03/20 11:30 08/28/20 11:29 Dextrose (Dextrose 50%) 50 ml Q30M PRN IV Hypoglycemia 06/03/20 11:30 08/28/20 11:29 Dopamine HCl/ Dextrose 250 ml @ 0 mls/hr Q24H IV 06/12/20 11:15 07/03/20 23:59 06/14/20 19:47 Hydrocortisone (Solu-CORTEF) 100 mg EVERY 8 HOURS IV 06/07/20 14:00 09/05/20 13:59 07/02/20 13:46 Insulin Aspart (NovoLOG) Q6HR SUBQ 06/26/20 12:00 09/24/20 11:59 07/02/20 11:37 Insulin Detemir (Levemir) 10 units Q12HR SUBQ 06/26/20 10:00 09/24/20 09:59 07/02/20 08:40 Loperamide HCl (Imodium) 2 mg Q6H PRN NG Diarrhea 06/24/20 10:30 07/24/20 10:29 07/01/20 11:41 Midodrine (Pro-Amatine) 10 mg Q8HR GT 06/05/20 14:00 09/03/20 13:59 07/02/20 05:31 Norepinephrine Bitartrate 16 mg/ Dextrose 500 ml @ 0 mls/hr Q24H IV 06/08/20 07:45 07/03/20 23:59 06/12/20 08:43 Phenylephrine HCl 50 mg/Dextrose 250 ml @ 0 mls/hr Q24H PRN IV For hypotension 06/06/20 17:45 07/03/20 23:59 06/08/20 01:49 Potassium Chloride (K-Dur) 40 meq TWICE A DAY GT 06/28/20 12:15 09/26/20 12:14 07/02/20 08:36 Allergies: Coded Allergies: No Known Allergies (Unverified , 10/16/18) ROS Limited/Unobtainable: Yes Subjective 59 YO F with Down's syndrome admitted with hypoxia. Now sepsis and pneumonia. Cover for Int Med-DR Hawk. ICU. Intubated and sedated Objective Last Vital Signs Date Time Temp Pulse Resp B/P (MAP) Pulse Ox O2 Delivery O2 Flow Rate FiO2 07/02/20 16:00 99.5 55 26 153/78 (103) 96 07/02/20 16:00 Mechanical Ventilator Mechanical Ventilator 07/02/20 16:00 80 Laboratory Tests Test 07/01/20 20:05 07/01/20 23:55 07/02/20 04:00 07/02/20 05:29 POC Whole Blood Glucose Pending Pending Pending White Blood Count 10.4 K/UL (4.8-10.8) Red Blood Count 3.11 M/UL (4.20-5.40) L Hemoglobin 10.0 G/DL (12.0-16.0) L Hematocrit 29.2 % (37.0-47.0) L Mean Corpuscular Volume 94 FL (80-99) Mean Corpuscular Hemoglobin 32.2 PG (27.0-31.0) H Mean Corpuscular Hemoglobin Concent 34.3 G/DL (32.0-36.0) Red Cell Distribution Width 17.5 % (11.6-14.8) H Platelet Count 78 K/UL (150-450) L Mean Platelet Volume 9.7 FL (6.5-10.1) Neutrophils (%) (Auto) % (45.0-75.0) Lymphocytes (%) (Auto) % (20.0-45.0) Monocytes (%) (Auto) % (1.0-10.0) Eosinophils (%) (Auto) % (0.0-3.0) Basophils (%) (Auto) % (0.0-2.0) Differential Total Cells Counted 100 Neutrophils % (Manual) 91 % (45-75) H Lymphocytes % (Manual) 7 % (20-45) L Monocytes % (Manual) 2 % (1-10) Eosinophils % (Manual) 0 % (0-3) Basophils % (Manual) 0 % (0-2) Band Neutrophils 0 % (0-8) Platelet Estimate Decreased L Platelet Morphology Normal Anisocytosis 1+ Sodium Level 149 MMOL/L (136-145) H Potassium Level 3.8 MMOL/L (3.5-5.1) Chloride Level 113 MMOL/L (98-107) H Carbon Dioxide Level 29 MMOL/L (21-32) Anion Gap 7 mmol/L (5-15) Blood Urea Nitrogen 30 mg/dL (7-18) H Creatinine 0.7 MG/DL (0.55-1.30) Estimat Glomerular Filtration Rate > 60 mL/min (>60) Glucose Level 193 MG/DL (74-106) H Calcium Level 7.6 MG/DL (8.5-10.1) L Phosphorus Level 2.3 MG/DL (2.5-4.9) L Magnesium Level 1.9 MG/DL (1.8-2.4) Total Bilirubin 0.7 MG/DL (0.2-1.0) Aspartate Amino Transf (AST/SGOT) 27 U/L (15-37) Alanine Aminotransferase (ALT/SGPT) 52 U/L (12-78) Alkaline Phosphatase 55 U/L (46-116) Total Protein 4.6 G/DL (6.4-8.2) L Albumin 1.2 G/DL (3.4-5.0) L Globulin 3.4 g/dL Albumin/Globulin Ratio 0.4 (1.0-2.7) L Test 07/02/20 08:39 Arterial Blood pH 7.510 (7.350-7.450) Arterial Blood Partial Pressure CO2 31.4 mmHg (35.0-45.0) L Arterial Blood Partial Pressure O2 86.4 mmHg (75.0-100.0) Arterial Blood HCO3 24.5 mmol/L (22.0-26.0) Arterial Blood Oxygen Saturation 96.5 % (95-100) Arterial Blood Base Excess 1.9 (-2-2) Jonathan Test Positive Intake and Output 07/01/20 07/02/20 19:00 07:00 Intake Total 950 ml 660 ml Output Total 845 ml 960 ml Balance 105 ml -300 ml Free Water 60 ml Tube Feeding 600 ml 600 ml Blood Product 250 ml Other 100 ml Output Urine Total 720 ml 900 ml Chest Tube Drainage Total 125 ml 60 ml # Bowel Movements 2 Objective General Appearance: WD/WN, no apparent distress, alert EENT: PERRL/EOMI, normal ENT inspection Neck: non-tender, normal alignment, supple, normal inspection Cardiovascular: normal peripheral pulses, normal rate, regular rhythm, no gallop/murmur, no JVD Respiratory/Chest: Mech vent; decreased breath sounds, crackles/rales, rhonchi - bilaterally, expiratory wheezing Abdomen: normal bowel sounds, non tender, soft, no organomegaly, no mass Extremities: normal range of motion Neurologic: information technology consultant II-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 Continue amikacin per ID=Dr Camejo. Pulmonary/Critical care=DR Allred. COVID NEG (2) Sepsis Assessment & Plan: Staph haemolyticus. Continue amikacin per ID=Dr Camejo (3) Down's syndrome (4) Dysphagia Assessment & Plan: S/P PEG (5) Seizure disorder Assessment & Plan: Continue keppra and depakote (6) Hypothyroidism Assessment & Plan: Continue synthroid (7) Acute respiratory failure Assessment & Plan: Pulmonary = Dr Allred; [facility] vent Joni Copeland MD Jul 02, 2020 17:34
--- NOTE | 2020-07-02 19:08 | NUR ---
NURSE HAND-OFF REPORT: Latest Vital Signs: Temperature 99.5 , Pulse 57 , B/P 130 /66 , Respiratory Rate 24 , O2 SAT 95 , Mechanical Ventilator, O2 Flow Rate 15.0 . Vital Sign Comment: EKG Rhythm: Sinus Bradycardia Rhythm change?: N Notified?: Marce Oliveros MD Response: No New Orders Received Latest Osorio Fall Score: 70 Fall Risk: High Risk Safety Measures: Call light Within Reach, Bed Alarm Zone 1, Side Rails Side Rails x3, Bed position Low and Locked. Fall Precautions: Yellow Socks Door Sign Patient Fall Education Report given to Elizabeth LUJAN.
--- NOTE | 2020-07-02 19:20 | NUR ---
NURSE NOTES: received report from carrol rn pt orally intubated -vent o2 sat 100% no acute resp distress noted [id number] chest [id number] 20 with leak serous dranage pt open eyes to touch reposition and suction
--- NOTE | 2020-07-02 19:53 | Cardiology Progress Note ---
Assessment/Plan Assessment/Plan sepsis respiratory failure ards renal insuf bacteremia abn cardiac enzyme due to demand sinus rafael stable thrombocytopenia resolved hypernatremia pneumothorax now s/p chest tube vent support abx 3rd spacing alot cxr pers reviewed not seem changed has air leak still tsh seems fine sig edema with hypernatremia na improved remains off pressor still at this time hr inthe 60's s no sig pauses on tele tele personally reviewed weanign to lower fio2 and now off peep on 70% possible trach soon watch hgb no up but not get prbc tx is urinamatt vick per rn maybe mobilizing fluid on her own Subjective ROS Limited/Unobtainable: Yes Subjective on a vent not communicative sleeeping Objective Last 24 Hour Vital Signs Date Time Temp Pulse Resp B/P (MAP) Pulse Ox O2 Delivery O2 Flow Rate FiO2 07/02/20 19:00 57 24 130/66 (87) 95 07/02/20 18:00 62 24 135/70 (91) 96 07/02/20 17:00 53 26 149/72 (97) 95 07/02/20 16:00 99.5 55 26 153/78 (103) 96 07/02/20 16:00 Mechanical Ventilator Mechanical Ventilator 07/02/20 16:00 56 07/02/20 16:00 80 07/02/20 15:05 58 26 80 07/02/20 15:00 49 26 154/82 (106) 96 07/02/20 14:00 56 28 144/71 (95) 96 07/02/20 13:00 58 26 142/80 (100) 96 07/02/20 12:00 Mechanical Ventilator Mechanical Ventilator 07/02/20 12:00 80 07/02/20 12:00 99.0 55 24 148/77 (100) 95 07/02/20 11:23 99 07/02/20 11:00 45 26 157/70 (99) 96 07/02/20 10:50 46 26 80 07/02/20 10:00 44 26 173/79 (110) 96 07/02/20 09:00 46 26 160/72 (101) 96 07/02/20 08:00 99.8 51 25 171/79 (109) 95 07/02/20 08:00 Mechanical Ventilator Mechanical Ventilator 07/02/20 08:00 80 07/02/20 07:38 43 07/02/20 07:00 49 26 163/70 (101) 95 07/02/20 07:00 44 26 80 07/02/20 06:00 54 26 133/75 (94) 95 07/02/20 05:31 125/69 07/02/20 05:00 60 26 169/75 (106) 97 07/02/20 04:00 Mechanical Ventilator Mechanical Ventilator 07/02/20 04:00 55 07/02/20 04:00 80 07/02/20 04:00 98.8 48 26 146/69 (94) 97 07/02/20 03:00 49 25 130/75 (93) 96 07/02/20 03:00 51 26 80 07/02/20 02:00 75 23 125/69 (87) 97 07/02/20 01:00 63 46 163/84 (110) 95 07/02/20 00:00 Mechanical Ventilator Mechanical Ventilator 07/02/20 00:00 66 39 168/78 (108) 97 07/02/20 00:00 80 07/01/20 23:00 60 26 147/68 (94) 96 07/01/20 22:49 60 26 80 07/01/20 22:00 99.0 51 26 174/75 (108) 95 07/01/20 21:00 99.0 07/01/20 21:00 58 33 167/117 (134) 97 07/01/20 20:00 Mechanical Ventilator Mechanical Ventilator 07/01/20 20:00 61 07/01/20 20:00 80 07/01/20 20:00 100.0 60 28 141/72 (95) 96 General Appearance: no apparent distress, on vent, patient on isolation, isolation precautions Cardiovascular: normal rate Respiratory/Chest: rhonchi - bilaterally Abdomen: normal bowel sounds, non tender, soft Extremities: moderate edema Intake and Output 07/01/20 07/02/20 19:00 07:00 Intake Total 950 ml 660 ml Output Total 845 ml 960 ml Balance 105 ml -300 ml Free Water 60 ml Tube Feeding 600 ml 600 ml Blood Product 250 ml Other 100 ml Output Urine Total 720 ml 900 ml Chest Tube Drainage Total 125 ml 60 ml # Bowel Movements 2 Laboratory Tests Test 07/01/20 20:05 07/01/20 23:55 07/02/20 04:00 07/02/20 05:29 POC Whole Blood Glucose Pending Pending Pending White Blood Count 10.4 K/UL (4.8-10.8) Red Blood Count 3.11 M/UL (4.20-5.40) L Hemoglobin 10.0 G/DL (12.0-16.0) L Hematocrit 29.2 % (37.0-47.0) L Mean Corpuscular Volume 94 FL (80-99) Mean Corpuscular Hemoglobin 32.2 PG (27.0-31.0) H Mean Corpuscular Hemoglobin Concent 34.3 G/DL (32.0-36.0) Red Cell Distribution Width 17.5 % (11.6-14.8) H Platelet Count 78 K/UL (150-450) L Mean Platelet Volume 9.7 FL (6.5-10.1) Neutrophils (%) (Auto) % (45.0-75.0) Lymphocytes (%) (Auto) % (20.0-45.0) Monocytes (%) (Auto) % (1.0-10.0) Eosinophils (%) (Auto) % (0.0-3.0) Basophils (%) (Auto) % (0.0-2.0) Differential Total Cells Counted 100 Neutrophils % (Manual) 91 % (45-75) H Lymphocytes % (Manual) 7 % (20-45) L Monocytes % (Manual) 2 % (1-10) Eosinophils % (Manual) 0 % (0-3) Basophils % (Manual) 0 % (0-2) Band Neutrophils 0 % (0-8) Platelet Estimate Decreased L Platelet Morphology Normal Anisocytosis 1+ Sodium Level 149 MMOL/L (136-145) H Potassium Level 3.8 MMOL/L (3.5-5.1) Chloride Level 113 MMOL/L (98-107) H Carbon Dioxide Level 29 MMOL/L (21-32) Anion Gap 7 mmol/L (5-15) Blood Urea Nitrogen 30 mg/dL (7-18) H Creatinine 0.7 MG/DL (0.55-1.30) Estimat Glomerular Filtration Rate > 60 mL/min (>60) Glucose Level 193 MG/DL (74-106) H Calcium Level 7.6 MG/DL (8.5-10.1) L Phosphorus Level 2.3 MG/DL (2.5-4.9) L Magnesium Level 1.9 MG/DL (1.8-2.4) Total Bilirubin 0.7 MG/DL (0.2-1.0) Aspartate Amino Transf (AST/SGOT) 27 U/L (15-37) Alanine Aminotransferase (ALT/SGPT) 52 U/L (12-78) Alkaline Phosphatase 55 U/L (46-116) Total Protein 4.6 G/DL (6.4-8.2) L Albumin 1.2 G/DL (3.4-5.0) L Globulin 3.4 g/dL Albumin/Globulin Ratio 0.4 (1.0-2.7) L Test 07/02/20 08:39 Arterial Blood pH 7.510 (7.350-7.450) Arterial Blood Partial Pressure CO2 31.4 mmHg (35.0-45.0) L Arterial Blood Partial Pressure O2 86.4 mmHg (75.0-100.0) Arterial Blood HCO3 24.5 mmol/L (22.0-26.0) Arterial Blood Oxygen Saturation 96.5 % (95-100) Arterial Blood Base Excess 1.9 (-2-2) Jonathan Test Positive Josue Pantoja MD Jul 02, 2020 19:53
[2020-07-02] MEDS: Dyna-Hex 2% Top Sol 2oz TOPIC SCH (20:56)
--- NOTE | 2020-07-02 22:00 | NUR ---
NURSE NOTES: reposition and suction
[2020-07-03] VITALS (24 sets, daily range): BP systolic 98–158; BP diastolic 53–94
--- NOTE | 2020-07-03 | NUR ---
NURSE NOTES: bs 221 insulin coverage given as order
--- NOTE | 2020-07-03 02:00 | NUR ---
NURSE NOTES: reposition and suction
--- NOTE | 2020-07-03 04:00 | NUR ---
NURSE NOTES: complete bed bath oral care and chest tube dressing change done reposition and suction
[2020-07-03] MEDS: Hydrocortisone 100mg Inj IV SCH ×3 (05:52→21:40)
[2020-07-03] MEDS: Midodrine 10mg tab GT SCH ×3 (05:52→21:39)
[2020-07-03] MEDS: NovoLOG Insulin Flexpen SUBQ SCH ×4 (06:00→17:48)
[2020-07-03 06:01] LABS: ALANINE AMINOTRANSFERASE 38 U/L (12-78); ALBUMIN 1.1 G/DL (3.4-5.0); ALBUMIN/GLOBULIN RATIO 0.3 (1.0-2.7); ALKALINE PHOSPHATASE 49 U/L (46-116); ANION GAP 7 mmol/L (5-15); ASPARTATE AMINO TRANSFERASE 29 U/L (15-37); BILIRUBIN,TOTAL 0.7 MG/DL (0.2-1.0); BLOOD UREA NITROGEN 33 mg/dL (7-18); CALCIUM 7.7 MG/DL (8.5-10.1); CARBON DIOXIDE 27 MMOL/L (21-32); CHLORIDE 113 MMOL/L (98-107); CREATININE 0.7 MG/DL (0.55-1.30); POTASSIUM 3.7 MMOL/L (3.5-5.1); SODIUM 147 MMOL/L (136-145)
[2020-07-03] MEDS: Norepinephrine Bitartrate 16 MG in D5W 500ml 484 ML IV SCH (06:08)
--- NOTE | 2020-07-03 06:23 | NUR ---
RD ASSESSMENT & RECOMMENDATIONS SEE CARE ACTIVITY FOR COMPLETE ASSESSMENT DAILY ESTIMATED NEEDS: Needs based on CRITICAL CARE, 50kg 22-28 kcals/kg 6419-5401 total kcals 1.25-2 g protein/kg 63-100 g total protein 25-30 mL/kg 7036-3732 total fluid mLs NUTRITION DIAGNOSIS: Swallowing difficulty r/t dysphagia as evdienced by pt w/ Downs Syndrome, PEG dep for all nutritional needs, now intubated, now off pressor support, ICU status. CURRENT TF:Vital AF 1.2 @ 50ml/hr 24 hrs ENTERAL NUTRITION RECOMMENDATIONS: VITAL AF 1.2 @ 45ml/hr x 24 hrs to provide 1080ml, 1296kcal, 81g prot, 876ml free water - Maintain Vital AF for carb control, critical care, elemental feeds for diarrhea - For continuous TF of x 24 hrs (off Synthroid at this time), rec goal rate of 45ml/hr x 24 hrs -> will meet 100% est kcal/prot needs ----- If Synthroid is re-added to medlist, recommend: VITAL AF 1.2 @ 50ml/hr x22 hrs to provide 1100ml, 1320 kcal, 83g pro, 892ml free H2O (hold TF 1 hr before and after Synthroid) ADDITIONAL RECOMMENDATIONS: 1) Ht of 61 inches per SNF; recalibrate bed scale for accurate CBW 2) Add NISS: BGs now in the 200's, on Solucortef-> NOW ON NISS + LEVEMIR 3) Monitor hemodynamic stability: pressors held at this time 4) Wound healing: Continue Vit C 250mg QD + [place] BID 5) Monitor lytes, replete as needed (low phos) 6) Add probiotics for diarrhea .
--- NOTE | 2020-07-03 07:41 | NUR ---
NURSE HAND-OFF REPORT: Latest Vital Signs: Temperature 98.2 , Pulse 59 , B/P 136 /60 , Respiratory Rate 30 , O2 SAT 97 , Mechanical Ventilator, O2 Flow Rate 15.0 . Vital Sign Comment: EKG Rhythm: Sinus Rhythm Rhythm change?: N Notified?: Y Chaparro Oliveros MD Response: No New Orders Received Latest Osorio Fall Score: 70 Fall Risk: High Risk Safety Measures: Call light Within Reach, Bed Alarm Zone 1, Side Rails Side Rails x3, Bed position Low and Locked. Fall Precautions: Yellow Socks Door Sign Patient Fall Education Report given to mart rivera using sbar .
--- NOTE | 2020-07-03 07:42 | NUR ---
NURSE NOTES: Received patient from Hung Doty RN. Orally intubated, ET size of 7.5, 22 cm in the lip, mechanical ventilator dependent. Ventilator settings of AC 26, Tidal Volume 500, FiO2 of 80%, no PEEP. On continuous GTF of Vital running at 50ml/hour. Left upper arm PICC noted. Gregorio cath inplace with yellow clear urine output noted in drainage bag by gravity. Contact isolation observed. Will continue plan of care.
[2020-07-03 07:51] LABS: HEMATOCRIT 30.4 % (37.0-47.0); HEMOGLOBIN 10.2 G/DL (12.0-16.0); MEAN CORPUSCULAR VOLUME 94 FL (80-99); PLATELET COUNT 82 K/UL (150-450); RED BLOOD COUNT 3.23 M/UL (4.20-5.40); RED CELL DISTRIBUTION WIDTH 17.1 % (11.6-14.8); WHITE BLOOD COUNT 10.2 K/UL (4.8-10.8)
[2020-07-03 08:45] LABS: PHOSPHORUS 2.4 MG/DL (2.5-4.9)
[2020-07-03] MEDS: Levemir Flexpen SUBQ SCH ×2 (09:34→21:06)
--- NOTE | 2020-07-03 09:40 | NUR ---
NURSE NOTES: Dr. Pitt at bedside. Aware of today's lab results.
--- NOTE | 2020-07-03 10:12 | NUR ---
RADIOLOGY DEPT., CHEST X-RAY DONE.-P.DYE
--- NOTE | 2020-07-03 10:28 | Pulmonolgy Critical Care Note ---
Critical Care - Asmt/Plan Problems: (1) Acute respiratory failure (2) Pneumothorax (3) Bacteremia (4) Pneumonia (5) Sepsis (6) HCAP (healthcare-associated pneumonia) (7) Seizure disorder (8) Down's syndrome (9) Trisomy 21, Down syndrome Respiratory: monitor respiratory rate, adjust FIO2, CXR Cardiac: continue pressors, continue to monitor HR/BP Renal: F/U I&O, keep IV fluid, check electrolytes Infectious Disease: check cultures Gastrointestinal: continue feedings/current rate Endocrine: monitor blood sugar, check HgA1C, continue sliding scale insulin Hematologic: monitor H/H, transfuse if hgb<8.5 Neurologic: keep patient comfortable Affect: PRN ativan Prophylaxis: Heparin Time Spent (Minutes): 40 Notes Reviewed: cardio, 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 with: nurses, consultants, 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 - Objective Last 24 Hour Vital Signs Date Time Temp Pulse Resp B/P (MAP) Pulse Ox O2 Delivery O2 Flow Rate FiO2 07/03/20 09:00 52 34 155/76 (102) 97 07/03/20 09:00 52 34 155/76 (102) 97 07/03/20 08:00 98.9 54 26 135/67 (89) 94 07/03/20 08:00 80 07/03/20 08:00 Mechanical Ventilator Mechanical Ventilator 07/03/20 07:48 56 07/03/20 07:20 60 26 80 07/03/20 07:00 56 27 158/77 (104) 97 07/03/20 06:08 136/60 07/03/20 06:00 59 30 136/73 (94) 97 07/03/20 05:00 58 26 130/72 (91) 96 07/03/20 04:00 98.2 59 22 138/71 (93) 96 07/03/20 04:00 57 07/03/20 04:00 80 07/03/20 04:00 Mechanical Ventilator Mechanical Ventilator 07/03/20 03:59 65 26 80 07/03/20 03:00 62 27 138/71 (93) 95 07/03/20 02:00 60 29 135/85 (102) 95 07/03/20 01:00 98.8 63 27 139/75 (96) 90 07/03/20 00:00 50 32 148/75 (99) 92 07/03/20 00:00 58 07/03/20 00:00 80 07/03/20 00:00 Mechanical Ventilator Mechanical Ventilator 07/02/20 23:12 58 26 80 07/02/20 22:00 65 30 125/65 (85) 95 07/02/20 21:00 99.4 57 25 144/69 (94) 94 07/02/20 20:00 Mechanical Ventilator Mechanical Ventilator 07/02/20 20:00 80 07/02/20 20:00 61 25 126/68 (87) 94 07/02/20 20:00 57 07/02/20 19:52 58 26 80 07/02/20 19:00 57 24 130/66 (87) 95 07/02/20 18:00 62 24 135/70 (91) 96 07/02/20 17:00 53 26 149/72 (97) 95 07/02/20 16:00 99.5 55 26 153/78 (103) 96 07/02/20 16:00 Mechanical Ventilator Mechanical Ventilator 07/02/20 16:00 56 07/02/20 16:00 80 07/02/20 15:05 58 26 80 07/02/20 15:00 49 26 154/82 (106) 96 07/02/20 14:00 56 28 144/71 (95) 96 07/02/20 13:00 58 26 142/80 (100) 96 07/02/20 12:00 Mechanical Ventilator Mechanical Ventilator 07/02/20 12:00 80 07/02/20 12:00 99.0 55 24 148/77 (100) 95 07/02/20 11:23 99 07/02/20 11:00 45 26 157/70 (99) 96 07/02/20 10:50 46 26 80 Status: sedated Condition: critical HEENT: atraumatic, normocephalic Neck: full ROM Heart: HR/BP stable Abdomen: soft, feeding tube Extremities: edema Accucheck: 152 Critical Care - Subjective Intubation Day: 34 FI02: 80 Vent Support Breath Rate: 26 Vent Support Mode: AC Vent Tidal Volume: 500 Sputum Amount: Moderate PEEP: 0.0 PIP: 33 Tube Feeding Amount: 50 I&O: Intake and Output 07/02/20 07/03/20 19:00 07:00 Intake Total 800 ml 900 ml Output Total 1900 ml 1090 ml Balance -1100 ml -190 ml Free Water 200 ml 300 ml Tube Feeding 600 ml 600 ml Output Urine Total 1900 ml 840 ml Chest Tube Drainage Total 250 ml # Bowel Movements 1 ET-Tube: 7.5 ET Position: 22 Labs: Laboratory Tests Test 07/02/20 21:04 07/03/20 01:09 07/03/20 04:40 07/03/20 07:35 POC Whole Blood Glucose Pending Pending Sodium Level 147 MMOL/L (136-145) H Potassium Level 3.7 MMOL/L (3.5-5.1) Chloride Level 113 MMOL/L (98-107) H Carbon Dioxide Level 27 MMOL/L (21-32) Anion Gap 7 mmol/L (5-15) Blood Urea Nitrogen 33 mg/dL (7-18) H Creatinine 0.7 MG/DL (0.55-1.30) Estimat Glomerular Filtration Rate > 60 mL/min (>60) Glucose Level 175 MG/DL (74-106) H Calcium Level 7.7 MG/DL (8.5-10.1) L Total Bilirubin 0.7 MG/DL (0.2-1.0) Aspartate Amino Transf (AST/SGOT) 29 U/L (15-37) Alanine Aminotransferase (ALT/SGPT) 38 U/L (12-78) Alkaline Phosphatase 49 U/L (46-116) Pro-B-Type Natriuretic Peptide 7364 pg/mL (0-125) H Total Protein 4.3 G/DL (6.4-8.2) L Albumin 1.1 G/DL (3.4-5.0) L Globulin 3.2 g/dL Albumin/Globulin Ratio 0.3 (1.0-2.7) L White Blood Count 10.2 K/UL (4.8-10.8) Red Blood Count 3.23 M/UL (4.20-5.40) L Hemoglobin 10.2 G/DL (12.0-16.0) L Hematocrit 30.4 % (37.0-47.0) L Mean Corpuscular Volume 94 FL (80-99) Mean Corpuscular Hemoglobin 31.6 PG (27.0-31.0) H Mean Corpuscular Hemoglobin Concent 33.6 G/DL (32.0-36.0) Red Cell Distribution Width 17.1 % (11.6-14.8) H Platelet Count 82 K/UL (150-450) L Mean Platelet Volume 8.8 FL (6.5-10.1) Neutrophils (%) (Auto) % (45.0-75.0) Lymphocytes (%) (Auto) % (20.0-45.0) Monocytes (%) (Auto) % (1.0-10.0) Eosinophils (%) (Auto) % (0.0-3.0) Basophils (%) (Auto) % (0.0-2.0) Neutrophils % (Manual) Pending Lymphocytes % (Manual) Pending Platelet Estimate Pending Platelet Morphology Pending Phosphorus Level 2.4 MG/DL (2.5-4.9) L Magnesium Level 1.7 MG/DL (1.8-2.4) L Test 07/03/20 09:32 POC Whole Blood Glucose 152 MG/DL (74-106) H Elayne Allred MD Jul 03, 2020 10:28
--- NOTE | 2020-07-03 10:48 | Nephrology Progress Note ---
Assessment/Plan Problem List: (1) LEANN (acute kidney injury) (2) Respiratory failure requiring intubation (3) Down's syndrome (4) Seizure disorder (5) Hypothyroidism Assessment Acute renal failure, likely due to hypotension Acute respiratory distress, hypoxia Seizure disorder Hypothyroidism Down syndrome Full code Fluid challenge with IV fluids and albumin Midodrine for BP above 100 systolic Check TSH level Check Correct level Monitor renal parameters Urine studies Per orders Plan July 03: Lab reviewed. Renal parameters stable. Full code. Intubated. Electrolyte abnormalities addressed and replacement done. July 02: Lab reviewed. Renal parameters stable. Full code. Intubated. Has right side chest tube. Continue per consultants. July 01: Lab reviewed. Renal parameters stable. Full code. Has right chest tube. Planning process for tracheostomy. Defer to chest and general surgeon. June 30: Labs reviewed. Renal parameters stable. Remains full code. Remains on ventilator. Due for tracheostomy tomorrow. Continue per consulta nts. Patient has a right chest tube in place at this time. June 29: Labs reviewed. Electrolyte imbalances addressed and supplemented. Remains full code and on ventilator. Continue to monitor renal parameters. Continue per consultants. June 28: Labs reviewed. Serum potassium again low today. Potassium supplement IV and through GT given. Patient remains full code and is on ventilator. Continue per consultants. Continue to monitor electrolytes and renal parameters. June 27: Labs reviewed. Abnormal electrolyte addressed. Remains full code. Remains vented. June 26: Day 27 of hospitalization. Full code. Labs reviewed. Hemoglobin down to 7.5. Electrolyte abnormalities addressed and corrections ordered. Continue to monitor renal parameters. Continue per consultants. Start on Levemir for blood sugar management. Questioning continuation of hydrocortisone? June 25: Labs reviewed. Potassium, phosphorus, hemoglobin, are all low. Potassium and phosphorus IV replacement given. Continue to monitor electrolytes and CBC. Patient remains full code. June 24: Lab reviewed. Low phosphorus low magnesium and low potassium was addressed. Hemoglobin drifting lower. Continue per consultants. Patient remains full code. June 23: Labs reviewed. Patient continues to be on ventilator. D5W for high sodium and also potassium chloride intravenously as supplement given. Hemoglobin 8.4. Continue to monitor electrolytes and renal parameters. June 22: Labs reviewed. Low potassium and high sodium noted. Hemoglobin 8.1 stable. Aim to correct abnormal electrolyte. Continue rest. Will give 2 boluses of D5W 500 cc. June 21: Lab reviewed. Abnormal electrolytes noted and addressed. June 20: Labs reviewed. Potassium supplement given. Patient remains full code. Continue per consultants. June 19: Lab reviewed. Electrolyte abnormalities addressed. Continue per pulmonary and ID. June 18: Lab reviewed. Status unchanged. Serum sodium 151 unchanged. Stable from renal standpoint of view. June 17: Labs reviewed. Status quo. D5W 500 cc IV ordered. Continue to monitor renal parameters. June 16: Status quo. Labs reviewed. Overall condition unchanged. Patient was transfused and hemoglobin higher. Continue current management. Patient remains full code. June 15: Status quo. Overall condition poor. Very low albumin. Edematous. Hypotensive. Hemoglobin lower. Anemia work-up ordered. I favor transfusion 2 units of packed RBCs. Patient remains full code. I favor supportive care only. Will discuss. June 14: Electrolyte abnormalities addressed. Serum creatinine lower. Continue per current management. June 13: Status unchanged. Lab reviewed. Serum potassium 2.7. IV potassium chloride ordered. Serum creatinine low at 1.6 stable. Blood pressure 90s systolic June 12: Status quo. Labs reviewed. Renal parameters stable. Serum creatinine down to 1.6. Medication list reviewed. Continues to be on midodrine. Continue per consultants. June 11: Status quo. Labs reviewed. Electrolytes adjusted. Serum creatinine down to 1.8. Continue per consultants. June 10: Status quo. Labs reviewed. Phosphorus supplement IV given. Serum creatinine 2. Continue per consultants. June 09: Requires less pressors. Albumin bolus given. 1 dose of Lasix IV ordered as the patient severely edematous. Patient serum albumin is very low. Continue per consultants. June 08: Continues to be intubated. Labs reviewed. Serum creatinine 1.9 unchanged. Blood pressure more stable. Off 1 of the pressors. Continue to monitor renal parameters. Continue per consultants. Patient now on hydrocortisone 100 mg every 8 hours. Will decrease IV fluid. Normal saline down to 50 cc an hour. June 07: Intubated. Labs reviewed. Creatinine 1.9 unchanged. Continue same treatment plan. Per consultants. Overall poor prognosis since the patient remains on pressors and her pulmonary status is worsening. June 06: Remains intubated. Labs reviewed. Creatinine 1.9. Blood pressure systolic 90s. Continue per consultants. June 05: Remains intubated. Labs reviewed. Serum creatinine lower to 2. Vancomycin level lower. Remains hypotensive on pressors. Will increase midodrine to 10 mg every 8 hours. Continue per consultants. Continue to monitor renal parameters. June 04: Patient now in ICU. Intubated. On pressors. Labs reviewed. Will increase midodrine. Aim to keep blood pressure over 100 systolic. Will give albumin bolus. Will check vancomycin level which was elevated when checked previously on June 01. Will monitor renal parameters. Continue per consultants. Subjective ROS Limited/Unobtainable: Yes Objective Objective Last 24 Hour Vital Signs Date Time Temp Pulse Resp B/P (MAP) Pulse Ox O2 Delivery O2 Flow Rate FiO2 07/03/20 10:00 56 25 137/72 (93) 96 07/03/20 09:00 52 34 155/76 (102) 97 07/03/20 09:00 52 34 155/76 (102) 97 07/03/20 08:00 98.9 54 26 135/67 (89) 94 07/03/20 08:00 80 07/03/20 08:00 Mechanical Ventilator Mechanical Ventilator 07/03/20 07:48 56 07/03/20 07:20 60 26 80 07/03/20 07:00 56 27 158/77 (104) 97 07/03/20 06:08 136/60 07/03/20 06:00 59 30 136/73 (94) 97 07/03/20 05:00 58 26 130/72 (91) 96 07/03/20 04:00 98.2 59 22 138/71 (93) 96 07/03/20 04:00 57 07/03/20 04:00 80 07/03/20 04:00 Mechanical Ventilator Mechanical Ventilator 07/03/20 03:59 65 26 80 07/03/20 03:00 62 27 138/71 (93) 95 07/03/20 02:00 60 29 135/85 (102) 95 07/03/20 01:00 98.8 63 27 139/75 (96) 90 07/03/20 00:00 50 32 148/75 (99) 92 07/03/20 00:00 58 07/03/20 00:00 80 07/03/20 00:00 Mechanical Ventilator Mechanical Ventilator 07/02/20 23:12 58 26 80 07/02/20 22:00 65 30 125/65 (85) 95 07/02/20 21:00 99.4 57 25 144/69 (94) 94 07/02/20 20:00 Mechanical Ventilator Mechanical Ventilator 07/02/20 20:00 80 07/02/20 20:00 61 25 126/68 (87) 94 07/02/20 20:00 57 07/02/20 19:52 58 26 80 07/02/20 19:00 57 24 130/66 (87) 95 07/02/20 18:00 62 24 135/70 (91) 96 07/02/20 17:00 53 26 149/72 (97) 95 07/02/20 16:00 99.5 55 26 153/78 (103) 96 07/02/20 16:00 Mechanical Ventilator Mechanical Ventilator 07/02/20 16:00 56 07/02/20 16:00 80 07/02/20 15:05 58 26 80 07/02/20 15:00 49 26 154/82 (106) 96 07/02/20 14:00 56 28 144/71 (95) 96 07/02/20 13:00 58 26 142/80 (100) 96 07/02/20 12:00 Mechanical Ventilator Mechanical Ventilator 07/02/20 12:00 80 07/02/20 12:00 99.0 55 24 148/77 (100) 95 07/02/20 11:23 99 07/02/20 11:00 45 26 157/70 (99) 96 07/02/20 10:50 46 26 80 Intake and Output 07/02/20 07/03/20 19:00 07:00 Intake Total 800 ml 900 ml Output Total 1900 ml 1090 ml Balance -1100 ml -190 ml Free Water 200 ml 300 ml Tube Feeding 600 ml 600 ml Output Urine Total 1900 ml 840 ml Chest Tube Drainage Total 250 ml # Bowel Movements 1 Laboratory Tests 07/02/20 21:04: POC Whole Blood Glucose [Pending] 07/03/20 01:09: POC Whole Blood Glucose [Pending] 07/03/20 04:40: Sodium Level 147H, Potassium Level 3.7, Chloride Level 113H, Carbon Dioxide Level 27, Anion Gap 7, Blood Urea Nitrogen 33H, Creatinine 0.7, Estimat Glomerular Filtration Rate > 60, Glucose Level 175H, Calcium Level 7.7L, Total Bilirubin 0.7, Aspartate Amino Transf (AST/SGOT) 29, Alanine Aminotransferase (ALT/SGPT) 38, Alkaline Phosphatase 49, Pro-B-Type Natriuretic Peptide 7364H, Total Protein 4.3L, Albumin 1.1L, Globulin 3.2, Albumin/Globulin Ratio 0.3L 07/03/20 07:35: White Blood Count 10.2, Red Blood Count 3.23L, Hemoglobin 10.2L, Hematocrit 30.4L, Mean Corpuscular Volume 94, Mean Corpuscular Hemoglobin 31.6H, Mean Corpuscular Hemoglobin Concent 33.6, Red Cell Distribution Width 17.1H, Platelet Count 82L, Mean Platelet Volume 8.8, Neutrophils (%) (Auto) , Lymphocytes (%) (Auto) , Monocytes (%) (Auto) , Eosinophils (%) (Auto) , Basophils (%) (Auto) , Neutrophils % (Manual) [Pending], Lymphocytes % (Manual) [Pending], Platelet Estimate [Pending], Platelet Morphology [Pending], Phosphorus Level 2.4L, Magnesium Level 1.7L 07/03/20 09:32: POC Whole Blood Glucose 152H Height (Feet): 5 Height (Inches): 3.00 Weight (Pounds): 172 General Appearance: no apparent distress EENT: other - Intubated on ventilator Cardiovascular: normal rate Respiratory/Chest: decreased breath sounds Abdomen: distended Keron Pitt MD Jul 03, 2020 10:48
--- NOTE | 2020-07-03 11:00 | NUR ---
NURSE NOTES: Right chest tube remains inplace. Serous drainage noted in pleurovac. Will continue to monitor.
--- NOTE | 2020-07-03 11:05 | General Progress Note ---
Subjective ROS Limited/Unobtainable: No Allergies: Coded Allergies: No Known Allergies (Unverified , 10/16/18) Objective Last 24 Hour Vital Signs Date Time Temp Pulse Resp B/P (MAP) Pulse Ox O2 Delivery O2 Flow Rate FiO2 07/03/20 10:00 56 25 137/72 (93) 96 07/03/20 09:00 52 34 155/76 (102) 97 07/03/20 09:00 52 34 155/76 (102) 97 07/03/20 08:00 98.9 54 26 135/67 (89) 94 07/03/20 08:00 80 07/03/20 08:00 Mechanical Ventilator Mechanical Ventilator 07/03/20 07:48 56 07/03/20 07:20 60 26 80 07/03/20 07:00 56 27 158/77 (104) 97 07/03/20 06:08 136/60 07/03/20 06:00 59 30 136/73 (94) 97 07/03/20 05:00 58 26 130/72 (91) 96 07/03/20 04:00 98.2 59 22 138/71 (93) 96 07/03/20 04:00 57 07/03/20 04:00 80 07/03/20 04:00 Mechanical Ventilator Mechanical Ventilator 07/03/20 03:59 65 26 80 07/03/20 03:00 62 27 138/71 (93) 95 07/03/20 02:00 60 29 135/85 (102) 95 07/03/20 01:00 98.8 63 27 139/75 (96) 90 07/03/20 00:00 50 32 148/75 (99) 92 07/03/20 00:00 58 07/03/20 00:00 80 07/03/20 00:00 Mechanical Ventilator Mechanical Ventilator 07/02/20 23:12 58 26 80 07/02/20 22:00 65 30 125/65 (85) 95 07/02/20 21:00 99.4 57 25 144/69 (94) 94 07/02/20 20:00 Mechanical Ventilator Mechanical Ventilator 07/02/20 20:00 80 07/02/20 20:00 61 25 126/68 (87) 94 07/02/20 20:00 57 07/02/20 19:52 58 26 80 07/02/20 19:00 57 24 130/66 (87) 95 07/02/20 18:00 62 24 135/70 (91) 96 07/02/20 17:00 53 26 149/72 (97) 95 07/02/20 16:00 99.5 55 26 153/78 (103) 96 07/02/20 16:00 Mechanical Ventilator Mechanical Ventilator 07/02/20 16:00 56 07/02/20 16:00 80 07/02/20 15:05 58 26 80 07/02/20 15:00 49 26 154/82 (106) 96 07/02/20 14:00 56 28 144/71 (95) 96 07/02/20 13:00 58 26 142/80 (100) 96 07/02/20 12:00 Mechanical Ventilator Mechanical Ventilator 07/02/20 12:00 80 07/02/20 12:00 99.0 55 24 148/77 (100) 95 07/02/20 11:23 99 Intake and Output 07/02/20 07/03/20 19:00 07:00 Intake Total 800 ml 900 ml Output Total 1900 ml 1090 ml Balance -1100 ml -190 ml Free Water 200 ml 300 ml Tube Feeding 600 ml 600 ml Output Urine Total 1900 ml 840 ml Chest Tube Drainage Total 250 ml # Bowel Movements 1 Laboratory Tests 07/02/20 21:04: POC Whole Blood Glucose [Pending] 07/03/20 01:09: POC Whole Blood Glucose [Pending] 07/03/20 04:40: Sodium Level 147H, Potassium Level 3.7, Chloride Level 113H, Carbon Dioxide Level 27, Anion Gap 7, Blood Urea Nitrogen 33H, Creatinine 0.7, Estimat Glomerular Filtration Rate > 60, Glucose Level 175H, Calcium Level 7.7L, Total Bilirubin 0.7, Aspartate Amino Transf (AST/SGOT) 29, Alanine Aminotransferase (ALT/SGPT) 38, Alkaline Phosphatase 49, Pro-B-Type Natriuretic Peptide 7364H, Total Protein 4.3L, Albumin 1.1L, Globulin 3.2, Albumin/Globulin Ratio 0.3L 07/03/20 07:35: White Blood Count 10.2, Red Blood Count 3.23L, Hemoglobin 10.2L, Hematocrit 30.4L, Mean Corpuscular Volume 94, Mean Corpuscular Hemoglobin 31.6H, Mean Corpuscular Hemoglobin Concent 33.6, Red Cell Distribution Width 17.1H, Platelet Count 82L, Mean Platelet Volume 8.8, Neutrophils (%) (Auto) , Lymphocytes (%) (Auto) , Monocytes (%) (Auto) , Eosinophils (%) (Auto) , Basophils (%) (Auto) , Neutrophils % (Manual) [Pending], Lymphocytes % (Manual) [Pending], Platelet Estimate [Pending], Platelet Morphology [Pending], Phosphorus Level 2.4L, Magnesium Level 1.7L 07/03/20 09:32: POC Whole Blood Glucose 152H Height (Feet): 5 Height (Inches): 3.00 Weight (Pounds): 172 General Appearance: no apparent distress EENT: normal ENT inspection Neck: supple Cardiovascular: normal rate Respiratory/Chest: decreased breath sounds Abdomen: normal bowel sounds, non tender, soft Extremities: non-tender Assessment/Plan Status: stable, not improved, unchanged Assessment/Plan: 1. History of Down syndrome. 2. Dysphagia with G-tube. 3. Seizure disorder. 4. Hypothyroidism. 5. LEANN. 6. Pneumonia. 7. Sepsis. fu H&H prn blood transfusion to keep HGB above 7 ppi GTF hold GI procedures for now stool ob + 1/2 Nehemiah Perez MD Jul 03, 2020 11:05
[2020-07-03] MEDS: DOPamine 400mg/250ml 250 ML IV SCH (11:15)
--- NOTE | 2020-07-03 11:24 | Infectious Diseases Prog Note ---
Assessment/Plan ASSESSMENT: sp code blue 06/03 Septic Shock; SP Fever, recurrent- low grade Leukocytosis; persistent/fluctuating, SP -06/27 Bcx NTD -06/17 u/a no pyuria -06/16 Bcx NTD (Picc line) -06/14 Bcx NTD ucx Neg sp cx C. parapsilopsis -06/03 u/a no pyuria Pneumonia.- COVID 19 neg x3 Acute hypoxic resp failure on VM> NRB 15l 100%; hypoxic on ABG> now VDRF 06/03- Fio2 80% >100% 06/05> 60% 06/09 >80% 06/10 >95% 06/18 >90% 06/22 >60% 06/23 R tension Pneumothroax sp CT 06/29 -06/30 CXR: Interim complete reexpansion of right lung without evidence of residual pneumothorax. Bilateral diffuse and extensive infiltrates. Markedly improved chest wall subcutaneous emphysema -06/29 CXR: Interim reexpansion of previously demonstrated right pneumothorax, status post large bore chest tube placement. -06/22 CXR: Improved aeration of both lungs. -06/13 CXR:Small bilateral pleural effusions with minor edema. Stable edema with mild worsening in the degree of pleural effusion on the right. -06/09 sp cx Neg 06/08 CXR: Extensive bilateral interstitial and airspace disease appears similar to the prior exam. Moderate to large bilateral pleural effusions appear unchanged. 06/05 CXR: Increasing left upper lobe dense consolidation and likely increasing bilateral pleural fluid. Persistent diffuse dense consolidation elsewhere -06/03 sp cx normal resp marie -06/02 CXR: Increased atelectasis of the right lung, since prior exam of 3 days earlier. New or increased right pleural effusion. Increased left basilar consolidation and/or pleural fluid -COVID Rapid PCR neg 05/31, 05/31, 06/03 -05/30 spc x Group G strep -05/30 CXR: Reduced lung volumes. Patchy bilateral predominantly interstitial pulmonary opacities. Could be from edema and/or pneumonia. There is a broader differential. -legionella ag urine, blasto ab, Histo ab, HIV ab screen, FRANCIS, ANCA neg Persistent, high grade bacteremia- -05/30 Bcx 4/4 sets S. haemolyticus; 05/31 Bcx 3/4 S/ epi; 06/04 Bcx 1.4 S. warnerri; 06/06 Bcx Neg -2d echo: no vegetaions seen ua/ wbc 10-15, nit neg, leuk +1; ucx Neg LEANN; -supratherapeutic vanco levels -Seizure disorder. - Hypothyroidism. - Down syndrome. History of PEG tube placement. [place] resident PLAN: Monitor off abx, if more episode of fever, will start Empiric AB Rx 06/22 SP Meropenem #18, IV AMikacin #7 06/12/20 SP Daptomycin #11 06/10 SP MIcafungin #7, Linezolid #5 06/05 SP Azithromycin #7/7 06/03 SP Ceftriaxone #2 06/02 SP IV Vancomycin #4, Zosyn #4 05/30 SP Cefepime x1, Flagyl x1 - Monitor CBC, BMP. .f/u cx - COVID neg x3 - Monitor chest x-ray. - Monitor the patient's clinical course and labs. Based on those, we will do further recommendation. -f/u Fungitell, asp ag, flow cytometry -poor prognosis Thank you, Dr. Allred, for allowing me to participate in the care of this patient. I will follow the patient with you at this hospitalization. Discussed with RN Subjective Allergies: Coded Allergies: No Known Allergies (Unverified , 10/16/18) Afebrile ON Vent 80% O2 No leukocytosis MOLLY Objective Last 24 Hour Vital Signs Date Time Temp Pulse Resp B/P (MAP) Pulse Ox O2 Delivery O2 Flow Rate FiO2 07/03/20 11:00 50 26 143/78 (99) 96 07/03/20 10:00 56 25 137/72 (93) 96 07/03/20 09:00 52 34 155/76 (102) 97 07/03/20 09:00 52 34 155/76 (102) 97 07/03/20 08:00 98.9 54 26 135/67 (89) 94 07/03/20 08:00 80 07/03/20 08:00 Mechanical Ventilator Mechanical Ventilator 07/03/20 07:48 56 07/03/20 07:20 60 26 80 07/03/20 07:00 56 27 158/77 (104) 97 07/03/20 06:08 136/60 07/03/20 06:00 59 30 136/73 (94) 97 07/03/20 05:00 58 26 130/72 (91) 96 07/03/20 04:00 98.2 59 22 138/71 (93) 96 07/03/20 04:00 57 07/03/20 04:00 80 07/03/20 04:00 Mechanical Ventilator Mechanical Ventilator 07/03/20 03:59 65 26 80 07/03/20 03:00 62 27 138/71 (93) 95 07/03/20 02:00 60 29 135/85 (102) 95 07/03/20 01:00 98.8 63 27 139/75 (96) 90 07/03/20 00:00 50 32 148/75 (99) 92 07/03/20 00:00 58 07/03/20 00:00 80 07/03/20 00:00 Mechanical Ventilator Mechanical Ventilator 07/02/20 23:12 58 26 80 07/02/20 22:00 65 30 125/65 (85) 95 07/02/20 21:00 99.4 57 25 144/69 (94) 94 07/02/20 20:00 Mechanical Ventilator Mechanical Ventilator 07/02/20 20:00 80 07/02/20 20:00 61 25 126/68 (87) 94 07/02/20 20:00 57 07/02/20 19:52 58 26 80 07/02/20 19:00 57 24 130/66 (87) 95 07/02/20 18:00 62 24 135/70 (91) 96 07/02/20 17:00 53 26 149/72 (97) 95 07/02/20 16:00 99.5 55 26 153/78 (103) 96 07/02/20 16:00 Mechanical Ventilator Mechanical Ventilator 07/02/20 16:00 56 07/02/20 16:00 80 07/02/20 15:05 58 26 80 07/02/20 15:00 49 26 154/82 (106) 96 07/02/20 14:00 56 28 144/71 (95) 96 07/02/20 13:00 58 26 142/80 (100) 96 07/02/20 12:00 Mechanical Ventilator Mechanical Ventilator 07/02/20 12:00 80 07/02/20 12:00 99.0 55 24 148/77 (100) 95 Height (Feet): 5 Height (Inches): 3.00 Weight (Pounds): 172 GEN: NAD on Vent 80% O2 HEENT: NCAT, Intubated, Pulm: Equal chest rise and fall B/L, No accessory muscle use ABD: Soft, ND SKIN: Exposed skin with no rash, Normal in color Laboratory Tests Test 07/02/20 21:04 07/03/20 01:09 07/03/20 04:40 07/03/20 07:35 POC Whole Blood Glucose Pending Pending Sodium Level 147 MMOL/L (136-145) H Potassium Level 3.7 MMOL/L (3.5-5.1) Chloride Level 113 MMOL/L (98-107) H Carbon Dioxide Level 27 MMOL/L (21-32) Anion Gap 7 mmol/L (5-15) Blood Urea Nitrogen 33 mg/dL (7-18) H Creatinine 0.7 MG/DL (0.55-1.30) Estimat Glomerular Filtration Rate > 60 mL/min (>60) Glucose Level 175 MG/DL (74-106) H Calcium Level 7.7 MG/DL (8.5-10.1) L Total Bilirubin 0.7 MG/DL (0.2-1.0) Aspartate Amino Transf (AST/SGOT) 29 U/L (15-37) Alanine Aminotransferase (ALT/SGPT) 38 U/L (12-78) Alkaline Phosphatase 49 U/L (46-116) Pro-B-Type Natriuretic Peptide 7364 pg/mL (0-125) H Total Protein 4.3 G/DL (6.4-8.2) L Albumin 1.1 G/DL (3.4-5.0) L Globulin 3.2 g/dL Albumin/Globulin Ratio 0.3 (1.0-2.7) L White Blood Count 10.2 K/UL (4.8-10.8) Red Blood Count 3.23 M/UL (4.20-5.40) L Hemoglobin 10.2 G/DL (12.0-16.0) L Hematocrit 30.4 % (37.0-47.0) L Mean Corpuscular Volume 94 FL (80-99) Mean Corpuscular Hemoglobin 31.6 PG (27.0-31.0) H Mean Corpuscular Hemoglobin Concent 33.6 G/DL (32.0-36.0) Red Cell Distribution Width 17.1 % (11.6-14.8) H Platelet Count 82 K/UL (150-450) L Mean Platelet Volume 8.8 FL (6.5-10.1) Neutrophils (%) (Auto) % (45.0-75.0) Lymphocytes (%) (Auto) % (20.0-45.0) Monocytes (%) (Auto) % (1.0-10.0) Eosinophils (%) (Auto) % (0.0-3.0) Basophils (%) (Auto) % (0.0-2.0) Neutrophils % (Manual) Pending Lymphocytes % (Manual) Pending Platelet Estimate Pending Platelet Morphology Pending Phosphorus Level 2.4 MG/DL (2.5-4.9) L Magnesium Level 1.7 MG/DL (1.8-2.4) L Test 07/03/20 09:32 POC Whole Blood Glucose 152 MG/DL (74-106) H Current Medications Medications (Trade) Dose Ordered Sig/Katy Route PRN Reason Start Time Stop Time Status Last Admin Dose Admin Acetaminophen (Tylenol) 650 mg Q4H PRN GT FEVER 06/03/20 11:45 07/03/20 11:44 07/01/20 20:07 Acetaminophen (Tylenol) 650 mg Q4H PRN GT For Pain 07/01/20 17:15 07/31/20 17:14 07/01/20 17:23 Chlorhexidine Gluconate (Alla-Hex 2%) 1 applic DAILY@2000 TOPIC 06/08/20 20:00 09/06/20 19:59 07/02/20 20:56 Clotrimazole (Lotrimin) 1 applic Q12HR TOPIC 06/07/20 13:00 09/05/20 12:59 07/03/20 09:33 Dextrose (Dextrose 50%) 25 ml Q30M PRN IV Hypoglycemia 06/03/20 11:30 08/28/20 11:29 Dextrose (Dextrose 50%) 50 ml Q30M PRN IV Hypoglycemia 06/03/20 11:30 08/28/20 11:29 Dopamine HCl/ Dextrose 250 ml @ 0 mls/hr Q24H IV 06/12/20 11:15 07/03/20 23:59 06/14/20 19:47 Hydrocortisone (Solu-CORTEF) 100 mg EVERY 8 HOURS IV 06/07/20 14:00 09/05/20 13:59 07/03/20 05:52 Insulin Aspart (NovoLOG) Q6HR SUBQ 06/26/20 12:00 09/24/20 11:59 07/03/20 00:00 Insulin Detemir (Levemir) 10 units Q12HR SUBQ 06/26/20 10:00 09/24/20 09:59 07/03/20 09:34 Loperamide HCl (Imodium) 2 mg Q6H PRN NG Diarrhea 06/24/20 10:30 07/24/20 10:29 07/01/20 11:41 Midodrine (Pro-Amatine) 10 mg Q8HR GT 06/05/20 14:00 09/03/20 13:59 07/03/20 05:52 Norepinephrine Bitartrate 16 mg/ Dextrose 500 ml @ 0 mls/hr Q24H IV 06/08/20 07:45 07/03/20 23:59 06/12/20 08:43 Phenylephrine HCl 50 mg/Dextrose 250 ml @ 0 mls/hr Q24H PRN IV For hypotension 06/06/20 17:45 07/03/20 23:59 06/08/20 01:49 Potassium Chloride (K-Dur) 40 meq TWICE A DAY GT 06/28/20 12:15 09/26/20 12:14 07/03/20 09:35 Chencho Corley MD Jul 03, 2020 11:24
--- NOTE | 2020-07-03 13:00 | NUR ---
NURSE NOTES: Bed Bath provided. Kept clean and dry.
--- NOTE | 2020-07-03 15:00 | NUR ---
NURSE NOTES: Oral care provided. Mechanical Vent dependent.
--- NOTE | 2020-07-03 15:24 | Internal Med Progress Note ---
Subjective Physician Name Guillaume Hawk Attending Physician Elayne Allred MD Current Medications Medications (Trade) Dose Ordered Sig/Katy Route PRN Reason Start Time Stop Time Status Last Admin Dose Admin Acetaminophen (Tylenol) 650 mg Q4H PRN GT For Pain 07/01/20 17:15 07/31/20 17:14 07/01/20 17:23 Chlorhexidine Gluconate (Alla-Hex 2%) 1 applic DAILY@1999 TOPIC 06/08/20 20:00 09/06/20 19:59 07/02/20 20:56 Clotrimazole (Lotrimin) 1 applic Q12HR TOPIC 06/07/20 13:00 09/05/20 12:59 07/03/20 09:33 Dextrose (Dextrose 50%) 25 ml Q30M PRN IV Hypoglycemia 06/03/20 11:30 08/28/20 11:29 Dextrose (Dextrose 50%) 50 ml Q30M PRN IV Hypoglycemia 06/03/20 11:30 08/28/20 11:29 Dopamine HCl/ Dextrose 250 ml @ 0 mls/hr Q24H IV 06/12/20 11:15 07/03/20 23:59 06/14/20 19:47 Hydrocortisone (Solu-CORTEF) 100 mg EVERY 8 HOURS IV 06/07/20 14:00 09/05/20 13:59 07/03/20 14:18 Insulin Aspart (NovoLOG) Q6HR SUBQ 06/26/20 12:00 09/24/20 11:59 07/03/20 14:19 Insulin Detemir (Levemir) 10 units Q12HR SUBQ 06/26/20 10:00 09/24/20 09:59 07/03/20 09:34 Loperamide HCl (Imodium) 2 mg Q6H PRN NG Diarrhea 06/24/20 10:30 07/24/20 10:29 07/01/20 11:41 Midodrine (Pro-Amatine) 10 mg Q8HR GT 06/05/20 14:00 09/03/20 13:59 07/03/20 14:18 Norepinephrine Bitartrate 16 mg/ Dextrose 500 ml @ 0 mls/hr Q24H IV 06/08/20 07:45 07/03/20 23:59 06/12/20 08:43 Phenylephrine HCl 50 mg/Dextrose 250 ml @ 0 mls/hr Q24H PRN IV For hypotension 06/06/20 17:45 07/03/20 23:59 06/08/20 01:49 Potassium Chloride (K-Dur) 40 meq TWICE A DAY GT 06/28/20 12:15 09/26/20 12:14 07/03/20 09:35 Allergies: Coded Allergies: No Known Allergies (Unverified , 10/16/18) Subjective in ICU, remained intubated on the vent, open eyes, unable to follow command. WBC: 10.2. Objective Last Vital Signs Date Time Temp Pulse Resp B/P (MAP) Pulse Ox O2 Delivery O2 Flow Rate FiO2 07/03/20 15:22 68 26 80 07/03/20 12:00 98.9 141/76 (97) 96 07/03/20 12:00 Mechanical Ventilator Mechanical Ventilator Laboratory Tests Test 07/02/20 21:04 07/03/20 01:09 07/03/20 04:40 07/03/20 07:35 POC Whole Blood Glucose Pending Pending Sodium Level 147 MMOL/L (136-145) H Potassium Level 3.7 MMOL/L (3.5-5.1) Chloride Level 113 MMOL/L (98-107) H Carbon Dioxide Level 27 MMOL/L (21-32) Anion Gap 7 mmol/L (5-15) Blood Urea Nitrogen 33 mg/dL (7-18) H Creatinine 0.7 MG/DL (0.55-1.30) Estimat Glomerular Filtration Rate > 60 mL/min (>60) Glucose Level 175 MG/DL (74-106) H Calcium Level 7.7 MG/DL (8.5-10.1) L Total Bilirubin 0.7 MG/DL (0.2-1.0) Aspartate Amino Transf (AST/SGOT) 29 U/L (15-37) Alanine Aminotransferase (ALT/SGPT) 38 U/L (12-78) Alkaline Phosphatase 49 U/L (46-116) Pro-B-Type Natriuretic Peptide 7364 pg/mL (0-125) H Total Protein 4.3 G/DL (6.4-8.2) L Albumin 1.1 G/DL (3.4-5.0) L Globulin 3.2 g/dL Albumin/Globulin Ratio 0.3 (1.0-2.7) L White Blood Count 10.2 K/UL (4.8-10.8) Red Blood Count 3.23 M/UL (4.20-5.40) L Hemoglobin 10.2 G/DL (12.0-16.0) L Hematocrit 30.4 % (37.0-47.0) L Mean Corpuscular Volume 94 FL (80-99) Mean Corpuscular Hemoglobin 31.6 PG (27.0-31.0) H Mean Corpuscular Hemoglobin Concent 33.6 G/DL (32.0-36.0) Red Cell Distribution Width 17.1 % (11.6-14.8) H Platelet Count 82 K/UL (150-450) L Mean Platelet Volume 8.8 FL (6.5-10.1) Neutrophils (%) (Auto) % (45.0-75.0) Lymphocytes (%) (Auto) % (20.0-45.0) Monocytes (%) (Auto) % (1.0-10.0) Eosinophils (%) (Auto) % (0.0-3.0) Basophils (%) (Auto) % (0.0-2.0) Differential Total Cells Counted 100 Neutrophils % (Manual) 92 % (45-75) H Lymphocytes % (Manual) 7 % (20-45) L Monocytes % (Manual) 1 % (1-10) Eosinophils % (Manual) 0 % (0-3) Basophils % (Manual) 0 % (0-2) Band Neutrophils 0 % (0-8) Platelet Estimate Decreased L Platelet Morphology Normal Hypochromasia 1+ Anisocytosis 1+ Spherocytes 1+ Phosphorus Level 2.4 MG/DL (2.5-4.9) L Magnesium Level 1.7 MG/DL (1.8-2.4) L Test 07/03/20 09:32 POC Whole Blood Glucose 152 MG/DL (74-106) H Intake and Output 07/02/20 07/03/20 19:00 07:00 Intake Total 800 ml 900 ml Output Total 1900 ml 1090 ml Balance -1100 ml -190 ml Free Water 200 ml 300 ml Tube Feeding 600 ml 600 ml Output Urine Total 1900 ml 840 ml Chest Tube Drainage Total 250 ml # Bowel Movements 1 Objective General: remain intubated, unable to follow command, open eyes with deep stimuli. HEENT: NCAT, sclera anicteric, PERRL, ET Tube. Neck: Supple, no significant jugular venous distention, Lungs: mechanical breath sounds decreased air at the bases, no Wheeze, +coarse breath sound. CHEST WALL: right side chest tube. Heart: Regular rate and rhythm, normal S1/S2, no murmurs/gallops Abdomen: soft, not tender, not distended. + bowel sounds, Morbid Obesity, PEG site intact. : Gregorio cath Extremities: No Cyanosis , clubbing, Bilateral upper extremities edema. left upper extremity PICC line. Neuro: limited secondary to patient status, unable to follow command, bilateral upper and lower extremities contracted. Assessment/Plan Assessment/Plan Problem List: (1) HCAP (healthcare-associated pneumonia) (2) Sepsis (3) Down's syndrome (4) Dysphagia S/P PEG (5) Seizure disorder (6) Hypothyroidism (7) Acute Hypoxemic respiratory failure (8) Persistent, high grade bacteremia- r/o endocarditis (9) LEANN (10) right-sided pneumothorax status post chest tube placement. Plan: Tolerated tube feeding @ 50 cc/hr Follow-up with laboratory and cultures decrease Hydrocortisone 50 mg IV every 8 Continue to monitor off abx Poor prognosis Guillaume Hawk MD Jul 03, 2020 15:24
--- NOTE | 2020-07-03 15:46 | Diagnostic Imaging Report ---
Indication: Dyspnea Technique: One view of the chest Comparison: 07/02/2020 Findings: Stable satisfactory positions of endotracheal tube, PICC, right chest tube. No pneumothorax. Bilateral extensive pulmonary infiltrates are unchanged Impression: Unchanged, over one day, findings as above.
--- NOTE | 2020-07-03 16:11 | NUR ---
CASE MANAGEMENT: REVIEW 07/03/2020 SI;SEPSIS. PNA. VS: T 98.9 HR 58 RR 26 B/P 141/76 SATS 96% ON MECH VENT FIO2 80 LABS: NA 147 CL 113 BUN 33 GLU 175 CA 7.7 IS:K-DUR GT BID DOPAMINE IV PER PARAMETERS LEVOPHED IV PER PARAMETERS SOLU CORTEF IV Q8HR MIDODRINE GT Q8HR LEVEMIR SQ BID ICU PLAN OF CARE: MAINTAIN CHEST TUBE
[2020-07-03] MEDS ORDERED: Cathflo Alteplase 2mg Inj INJ SCH (19:30)
--- NOTE | 2020-07-03 19:30 | NUR ---
NURSE HAND-OFF REPORT: Latest Vital Signs: Temperature 98.7 , Pulse 67 , B/P 118 /71 , Respiratory Rate 27 , O2 SAT 97 , Mechanical Ventilator, O2 Flow Rate 15.0 . EKG Rhythm: Sinus Rhythm Rhythm change?: N Latest Osorio Fall Score: 70 Fall Risk: High Risk Safety Measures: Call light Within Reach, Bed Alarm Zone 1, Side Rails Side Rails x3, Bed position Low and Locked. Yellow Socks Door Sign Patient Fall Education On continuous right chest tube to pleurovac. Report given to Hung Doty RN.
--- NOTE | 2020-07-03 20:09 | NUR ---
NURSE NOTES: received report from carol rn pt awake and alert orally intubated -vent o2 sat 100% no acute resp distress noted hr 58-60 sb-sr cath mary lou given to 2port picc line and aspirated and 30min
[2020-07-03] MEDS: Dyna-Hex 2% Top Sol 2oz TOPIC SCH (20:57)
--- NOTE | 2020-07-03 22:00 | NUR ---
NURSE NOTES: reposition and suction no acute resp distress noted
[2020-07-04] VITALS (24 sets, daily range): BP systolic 98–149; BP diastolic 59–107
--- NOTE | 2020-07-04 | NUR ---
NURSE NOTES: BS [id number] INSULIN COVERAGE GIVEN ORDER
[2020-07-04] MEDS: NovoLOG Insulin Flexpen SUBQ SCH ×5 (00:05→23:35)
--- NOTE | 2020-07-04 02:00 | NUR ---
NURSE NOTES: reposition and suction
--- NOTE | 2020-07-04 04:00 | NUR ---
NURSE NOTES: complete bed bath oral care back care wound care done chest care done reposition and suction
[2020-07-04 05:14] LABS: HEMOGLOBIN 9.5 G/DL (12.0-16.0); MEAN CORPUSCULAR VOLUME 94 FL (80-99); PLATELET COUNT 86 K/UL (150-450); RED BLOOD COUNT 2.96 M/UL (4.20-5.40); RED CELL DISTRIBUTION WIDTH 16.7 % (11.6-14.8); WHITE BLOOD COUNT 8.8 K/UL (4.8-10.8)
[2020-07-04 05:41] LABS: ALANINE AMINOTRANSFERASE 52 U/L (12-78); ALBUMIN 1.1 G/DL (3.4-5.0); ALBUMIN/GLOBULIN RATIO 0.4 (1.0-2.7); ANION GAP 4 mmol/L (5-15); ASPARTATE AMINO TRANSFERASE 30 U/L (15-37); BILIRUBIN,TOTAL 0.8 MG/DL (0.2-1.0); BLOOD UREA NITROGEN 29 mg/dL (7-18); CALCIUM 7.2 MG/DL (8.5-10.1); CARBON DIOXIDE 31 MMOL/L (21-32); CHLORIDE 113 MMOL/L (98-107); CREATININE 0.7 MG/DL (0.55-1.30); POTASSIUM 2.8 MMOL/L (3.5-5.1); SODIUM 148 MMOL/L (136-145)
[2020-07-04] MEDS: Hydrocortisone 100mg Inj IV SCH ×3 (05:47→22:38)
[2020-07-04] MEDS: Midodrine 10mg tab GT SCH ×3 (05:47→22:38)
[2020-07-04 05:58] LABS: ALKALINE PHOSPHATASE 54 U/L (46-116)
--- NOTE | 2020-07-04 06:00 | NUR ---
NURSE NOTES: BS 156 INSULIN COVERAGE ORDER
--- NOTE | 2020-07-04 07:27 | NUR ---
NURSE HAND-OFF REPORT: Latest Vital Signs: Temperature 98.6 , Pulse 47 , B/P 120 /105 , Respiratory Rate 26 , O2 SAT 98 , Mechanical Ventilator, O2 Flow Rate 15.0 . Vital Sign Comment: EKG Rhythm: Sinus Bradycardia Rhythm change?: N Notified?: Marce Oliveros MD Response: No New Orders Received Latest Osorio Fall Score: 70 Fall Risk: High Risk Safety Measures: Call light Within Reach, Bed Alarm Zone 1, Side Rails Side Rails x3, Bed position Low and Locked. Fall Precautions: Yellow Socks Door Sign Patient Fall Education Report given to carol rivera.
--- NOTE | 2020-07-04 07:28 | NUR ---
NURSE NOTES: Received patient from Hung Doty RN. Orally intubated, ET size of 7.5, 22 cm in the lip, mechanical ventilator dependent. Ventilator settings of AC 26, Tidal Volume 500, FiO2 of 80%, no PEEP. On continuous GTF of Vital running at 50ml/hour. Left upper arm PICC noted. Gregorio cath inplace with yellow clear urine output noted in drainage bag by gravity. Right lateral chest tube remains in place, connected to intermittent suction, with serous drainage noted in the pleurovac. Contact isolation observed. Will continue plan of care.
--- NOTE | 2020-07-04 08:01 | Infectious Diseases Prog Note ---
Assessment/Plan ASSESSMENT: sp code blue 06/03 Septic Shock; SP Fever, recurrent- low grade Leukocytosis; persistent/fluctuating, SP -06/27 Bcx NTD -06/17 u/a no pyuria -06/16 Bcx NTD (Picc line) -06/14 Bcx NTD ucx Neg sp cx C. parapsilopsis -06/03 u/a no pyuria Pneumonia.- COVID 19 neg x3 Acute hypoxic resp failure on VM> NRB 15l 100%; hypoxic on ABG> now VDRF 06/03- Fio2 80% >100% 06/05> 60% 06/09 >80% 06/10 >95% 06/18 >90% 06/22 >60% 06/23 R tension Pneumothroax sp CT 06/29 -06/30 CXR: Interim complete reexpansion of right lung without evidence of residual pneumothorax. Bilateral diffuse and extensive infiltrates. Markedly improved chest wall subcutaneous emphysema -06/29 CXR: Interim reexpansion of previously demonstrated right pneumothorax, status post large bore chest tube placement. -06/22 CXR: Improved aeration of both lungs. -06/13 CXR:Small bilateral pleural effusions with minor edema. Stable edema with mild worsening in the degree of pleural effusion on the right. -06/09 sp cx Neg 06/08 CXR: Extensive bilateral interstitial and airspace disease appears similar to the prior exam. Moderate to large bilateral pleural effusions appear unchanged. 06/05 CXR: Increasing left upper lobe dense consolidation and likely increasing bilateral pleural fluid. Persistent diffuse dense consolidation el sewhere -06/03 sp cx normal resp marie -06/02 CXR: Increased atelectasis of the right lung, since prior e xam of 3 days earlier. New or increased right pleural effusion. Increased left basilar consolidation and/or pleural fluid -COVID Rapid PCR neg 05/31, 05/31, 06/03 -05/30 spc x Group G strep -05/30 CXR: Reduced lung volumes. Patchy bilateral predominantly interstitial pulmonary opacities. Could be from edema and/or pneumonia. There is a broader differential. -legionella ag urine, blasto ab, Histo ab, HIV ab screen, FRANCIS, ANCA neg Persistent, high grade bacteremia- -05/30 Bcx 4/4 sets S. haemolyticus; 05/31 Bcx 3/4 S/ epi; 06/04 Bcx 1.4 S. warnerri; 06/06 Bcx Neg -2d echo: no vegetaions seen ua/ wbc 10-15, nit neg, leuk +1; ucx Neg LEANN; -supratherapeutic vanco levels -Seizure disorder. - Hypothyroidism. - Down syndrome. History of PEG tube placement. [facility] resident PLAN: Monitor off abx, if more episode of fever, will start Empiric AB Rx 06/22 SP Meropenem #18, IV AMikacin #7 06/12/20 SP Daptomycin #11 06/10 SP MIcafungin #7, Linezolid #5 06/05 SP Azithromycin #7/7 06/03 SP Ceftriaxone #2 06/02 SP IV Vancomycin #4, Zosyn #4 05/30 SP Cefepime x1, Flagyl x1 - Monitor CBC, BMP. .f/u cx - COVID neg x3 - Monitor chest x-ray. - Monitor the patient's clinical course and labs. Based on those, we will do further recommendation. -f/u Fungitell, asp ag, flow cytometry -poor prognosis Thank you, Dr. Allred, for allowing me to participate in the care of this patient. I will follow the patient with you at this hospitalization. Discussed with RN Subjective Allergies: Coded Allergies: No Known Allergies (Unverified , 10/16/18) AF Remains on vent WBC 8 Objective Last 24 Hour Vital Signs Date Time Temp Pulse Resp B/P (MAP) Pulse Ox O2 Delivery O2 Flow Rate FiO2 07/04/20 07:00 55 26 126/62 (83) 98 07/04/20 06:00 47 26 120/105 (110) 98 07/04/20 05:00 58 26 131/65 (87) 98 07/04/20 04:00 Mechanical Ventilator Mechanical Ventilator 07/04/20 04:00 56 07/04/20 04:00 80 07/04/20 04:00 98.6 49 26 107/62 (77) 97 07/04/20 03:37 54 26 80 07/04/20 03:00 65 27 120/90 (100) 99 07/04/20 02:00 59 25 126/87 (100) 99 07/04/20 01:00 55 26 144/76 (98) 100 9/26/20 00:00 Mechanical Ventilator Mechanical Ventilator 07/04/20 00:00 57 07/04/20 00:00 98.2 57 26 106/65 (79) 97 07/04/20 00:00 80 07/03/20 23:37 61 26 80 07/03/20 23:00 98.2 57 26 106/65 (79) 97 07/03/20 22:00 57 26 115/61 (79) 97 07/03/20 21:00 62 26 98/53 (68) 97 07/03/20 20:00 80 07/03/20 20:00 64 26 103/71 (82) 96 07/03/20 20:00 Mechanical Ventilator Mechanical Ventilator 07/03/20 20:00 64 07/03/20 19:49 61 26 80 07/03/20 19:00 67 27 118/71 (87) 97 07/03/20 18:00 66 20 135/73 (93) 97 07/03/20 17:00 59 25 113/94 (100) 98 07/03/20 16:26 60 07/03/20 16:00 Mechanical Ventilator Mechanical Ventilator 07/03/20 16:00 98.7 63 27 128/65 (86) 96 07/03/20 16:00 80 07/03/20 15:22 68 26 80 07/03/20 15:00 61 25 123/69 (87) 97 07/03/20 14:00 64 24 119/89 (99) 97 07/03/20 13:00 64 25 130/70 (90) 96 07/03/20 12:10 52 07/03/20 12:00 98.9 58 26 141/76 (97) 96 07/03/20 12:00 80 07/03/20 12:00 Mechanical Ventilator Mechanical Ventilator 07/03/20 11:47 55 26 80 07/03/20 11:15 143/78 07/03/20 11:00 50 26 143/78 (99) 96 07/03/20 10:00 56 25 137/72 (93) 96 07/03/20 09:00 52 34 155/76 (102) 97 07/03/20 09:00 52 34 155/76 (102) 97 07/03/20 08:00 98.9 54 26 135/67 (89) 94 07/03/20 08:00 80 07/03/20 08:00 Mechanical Ventilator Mechanical Ventilator Height (Feet): 5 Height (Inches): 3.00 Weight (Pounds): 172 Gen: NAD Pulm: BL chest rise Abd: Non-distended Ext: No c/c/e Skin: No visible skin rashes Laboratory Tests Test 07/03/20 09:32 07/03/20 21:02 07/03/20 23:57 07/04/20 04:00 POC Whole Blood Glucose 152 MG/DL (74-106) H 166 MG/DL (74-106) H 186 MG/DL (74-106) H White Blood Count 8.8 K/UL (4.8-10.8) Red Blood Count 2.96 M/UL (4.20-5.40) L Hemoglobin 9.5 G/DL (12.0-16.0) L Hematocrit 28.0 % (37.0-47.0) L Mean Corpuscular Volume 94 FL (80-99) Mean Corpuscular Hemoglobin 31.9 PG (27.0-31.0) H Mean Corpuscular Hemoglobin Concent 33.8 G/DL (32.0-36.0) Red Cell Distribution Width 16.7 % (11.6-14.8) H Platelet Count 86 K/UL (150-450) L Mean Platelet Volume 9.4 FL (6.5-10.1) Neutrophils (%) (Auto) % (45.0-75.0) Lymphocytes (%) (Auto) % (20.0-45.0) Monocytes (%) (Auto) % (1.0-10.0) Eosinophils (%) (Auto) % (0.0-3.0) Basophils (%) (Auto) % (0.0-2.0) Neutrophils % (Manual) Pending Lymphocytes % (Manual) Pending Platelet Estimate Pending Platelet Morphology Pending Sodium Level 148 MMOL/L (136-145) H Potassium Level 2.8 MMOL/L (3.5-5.1) L Chloride Level 113 MMOL/L (98-107) H Carbon Dioxide Level 31 MMOL/L (21-32) Anion Gap 4 mmol/L (5-15) L Blood Urea Nitrogen 29 mg/dL (7-18) H Creatinine 0.7 MG/DL (0.55-1.30) Estimat Glomerular Filtration Rate > 60 mL/min (>60) Glucose Level 177 MG/DL (74-106) H Calcium Level 7.2 MG/DL (8.5-10.1) L Phosphorus Level 2.0 MG/DL (2.5-4.9) L Magnesium Level 1.6 MG/DL (1.8-2.4) L Total Bilirubin 0.8 MG/DL (0.2-1.0) Aspartate Amino Transf (AST/SGOT) 30 U/L (15-37) Alanine Aminotransferase (ALT/SGPT) 52 U/L (12-78) Alkaline Phosphatase 54 U/L (46-116) Total Protein 4.0 G/DL (6.4-8.2) L Albumin 1.1 G/DL (3.4-5.0) L Globulin 2.9 g/dL Albumin/Globulin Ratio 0.4 (1.0-2.7) L Current Medications Medications (Trade) Dose Ordered Sig/Katy Route PRN Reason Start Time Stop Time Status Last Admin Dose Admin Acetaminophen (Tylenol) 650 mg Q4H PRN GT For Pain 07/01/20 17:15 07/31/20 17:14 07/01/20 17:23 Chlorhexidine Gluconate (Alla-Hex 2%) 1 applic DAILY@1999 TOPIC 06/08/20 20:00 09/06/20 19:59 07/03/20 20:57 Clotrimazole (Lotrimin) 1 applic Q12HR TOPIC 06/07/20 13:00 09/05/20 12:59 07/03/20 20:57 Dextrose (Dextrose 50%) 25 ml Q30M PRN IV Hypoglycemia 06/03/20 11:30 08/28/20 11:29 Dextrose (Dextrose 50%) 50 ml Q30M PRN IV Hypoglycemia 06/03/20 11:30 08/28/20 11:29 Hydrocortisone (Solu-CORTEF) 50 mg EVERY 8 HOURS IV 07/03/20 22:00 09/05/20 13:59 07/04/20 05:47 Insulin Aspart (NovoLOG) Q6HR SUBQ 06/26/20 12:00 09/24/20 11:59 07/04/20 05:49 Insulin Detemir (Levemir) 10 units Q12HR SUBQ 06/26/20 10:00 09/24/20 09:59 07/03/20 21:06 Loperamide HCl (Imodium) 2 mg Q6H PRN NG Diarrhea 06/24/20 10:30 07/24/20 10:29 07/01/20 11:41 Midodrine (Pro-Amatine) 10 mg Q8HR GT 06/05/20 14:00 09/03/20 13:59 07/04/20 05:47 Potassium Chloride (K-Dur) 40 meq TWICE A DAY GT 06/28/20 12:15 09/26/20 12:14 07/03/20 17:47 Graciela Henry M.D. Jul 04, 2020 08:01
--- NOTE | 2020-07-04 08:56 | Diagnostic Imaging Report ---
EXAM: XR Chest, 1 View CLINICAL HISTORY: DYSPNEA TECHNIQUE: Frontal view of the chest. COMPARISON: Chest radiograph July 03, 2020. FINDINGS/IMPRESSION: Endotracheal tube terminates approximately 4.0 cm above the joseph. EKG leads overlie the patient. Extensive bilateral airspace opacities consistent with multifocal infiltrate, similar in appearance to chest radiograph from July 03, 2020. Right-sided chest tube, unchanged. No definite pneumothorax. Cardiomegaly.
[2020-07-04] MEDS ORDERED: Potassium Phosphate 15mm/250ml 250 ML IVPB SCH ×2 (09:00→15:00)
--- NOTE | 2020-07-04 09:16 | NUR ---
NURSE NOTES: Carla Jj NP at bedside. Made aware of today's ABG results. FiO2 was decreased from 80% to 70%. No new order at this time.
--- NOTE | 2020-07-04 09:17 | Nephrology Progress Note ---
Assessment/Plan Problem List: (1) LEANN (acute kidney injury) (2) Respiratory failure requiring intubation (3) Down's syndrome (4) Seizure disorder (5) Hypothyroidism Assessment Acute renal failure, likely due to hypotension Acute respiratory distress, hypoxia Seizure disorder Hypothyroidism Down syndrome Full code Fluid challenge with IV fluids and albumin Midodrine for BP above 100 systolic Check TSH level Check Correct level Monitor renal parameters Urine studies Per orders Plan July 04: Labs reviewed. Discussed with RN. Potassium and phosphorus and magnesium replacement ordered. Hemoglobin 9.5. Patient remains full code. Continue per consultants. July 03: Lab reviewed. Renal parameters stable. Full code. Intubated. Electrolyte abnormalities addressed and replacement done. July 02: Lab reviewed. Renal parameters stable. Full code. Intubated. Has right side chest tube. Continue per consultants. July 01: Lab reviewed. Renal parameters stable. Full code. Has right chest tube. Planning process for tracheostomy. Defer to chest and general surgeon. June 30: Labs reviewed. Renal parameters stable. Remains full code. Remains on ventilator. Due for tracheostomy tomorrow. Continue per consultants. Patient has a right chest tube in place at this time. June 29: Labs reviewed. Electrolyte imbalances addressed and supplemented. Remains full code and on ventilator. Continue to monitor renal parameters. Continue per consultants. June 28: Labs reviewed. Serum potassium again low today. Potassium supplement IV and through GT given. Patient remains full code and is on ventilator. Continue per consultants. Continue to monitor electrolytes and renal parameters. June 27: Labs reviewed. Abnormal electrolyte addressed. Remains full code. Remains vented. June 26: Day 27 of hospitalization. Full code. Labs reviewed. Hemoglobin down to 7.5. Electrolyte abnormalities addressed and corrections ordered. Continue to monitor renal parameters. Continue per consultants. Start on Levemir for blood sugar management. Questioning continuation of hydrocortisone? June 25: Labs reviewed. Potassium, phosphorus, hemoglobin, are all low. Potassium and phosphorus IV replacement given. Continue to monitor electrolytes and CBC. Patient remains full code. June 24: Lab reviewed. Low phosphorus low magnesium and low potassium was addressed. Hemoglobin drifting lower. Continue per consultants. Patient remains full code. June 23: Labs reviewed. Patient continues to be on ventilator. D5W for high sodium and also potassium chloride intravenously as supplement given. Hemoglobin 8.4. Continue to monitor electrolytes and renal parameters. June 22: Labs reviewed. Low potassium and high sodium noted. Hemoglobin 8.1 stable. Aim to correct abnormal electrolyte. Continue rest. Will give 2 boluses of D5W 500 cc. June 21: Lab reviewed. Abnormal electrolytes noted and addressed. June 20: Labs reviewed. Potassium supplement given. Patient remains full code. Continue per consultants. June 19: Lab reviewed. Electrolyte abnormalities addressed. Continue per pulmonary and ID. June 18: Lab reviewed. Status unchanged. Serum sodium 151 unchanged. Stable from renal standpoint of view. June 17: Labs reviewed. Status quo. D5W 500 cc IV ordered. Continue to monitor renal parameters. June 16: Status quo. Labs reviewed. Overall condition unchanged. Patient was transfused and hemoglobin higher. Continue current management. Patient remains full code. June 15: Status quo. Overall condition poor. Very low albumin. Edematous. Hypotensive. Hemoglobin lower. Anemia work-up ordered. I favor transfusion 2 units of packed RBCs. Patient remains full code. I favor supportive care only. Will discuss. June 14: Electrolyte abnormalities addressed. Serum creatinine lower. Continue per current management. June 13: Status unchanged. Lab reviewed. Serum potassium 2.7. IV potassium chloride ordered. Serum creatinine low at 1.6 stable. Blood pressure 90s systolic June 12: Status quo. Labs reviewed. Renal parameters stable. Serum creatinine down to 1.6. Medication list reviewed. Continues to be on midodrine. Continue per consultants. June 11: Status quo. Labs reviewed. Electrolytes adjusted. Serum cre atinine down to 1.8. Continue per consultants. June 10: Status quo. Labs reviewed. Phosphorus supplement IV given. Serum creatinine 2. Continue per consultants. June 09: Requires less pressors. Albumin bolus given. 1 dose of Lasix IV ordered as the patient severely edematous. Patient serum albumin is very low. Continue per consultants. June 08: Continues to be intubated. Labs reviewed. Serum creatinine 1.9 unchanged. Blood pressure more stable. Off 1 of the pressors. Continue to monitor renal parameters. Continue per consultants. Patient now on hydrocortisone 100 mg every 8 hours. Will decrease IV fluid. Normal saline down to 50 cc an hour. June 07: Intubated. Labs reviewed. Creatinine 1.9 unchanged. Continue same treatment plan. Per consultants. Overall poor prognosis since the patient remains on pressors and her pulmonary status is worsening. June 06: Remains intubated. Labs reviewed. Creatinine 1.9. Blood pressure systolic 90s. Continue per consultants. June 05: Remains intubated. Labs reviewed. Serum creatinine lower to 2. Vancomycin level lower. Remains hypotensive on pressors. Will increase midodrine to 10 mg every 8 hours. Continue per consultants. Continue to monitor renal parameters. June 04: Patient now in ICU. Intubated. On pressors. Labs reviewed. Will increase midodrine. Aim to keep blood pressure over 100 systolic. Will give albumin bolus. Will check vancomycin level which was elevated when checked previously on June 01. Will monitor renal parameters. Continue per consultants. Subjective ROS Limited/Unobtainable: Yes Objective Objective Last 24 Hour Vital Signs Date Time Temp Pulse Resp B/P (MAP) Pulse Ox O2 Delivery O2 Flow Rate FiO2 07/04/20 08:25 70 07/04/20 08:20 70 07/04/20 08:00 98.8 50 26 125/65 (85) 98 07/04/20 08:00 Mechanical Ventilator Mechanical Ventilator 07/04/20 08:00 80 07/04/20 07:05 51 26 80 07/04/20 07:00 55 26 126/62 (83) 98 07/04/20 06:00 47 26 120/105 (110) 98 07/04/20 05:00 58 26 131/65 (87) 98 07/04/20 04:00 Mechanical Ventilator Mechanical Ventilator 07/04/20 04:00 56 07/04/20 04:00 80 07/04/20 04:00 98.6 49 26 107/62 (77) 97 07/04/20 03:37 54 26 80 07/04/20 03:00 65 27 120/90 (100) 99 07/04/20 02:00 59 25 126/87 (100) 99 07/04/20 01:00 55 26 144/76 (98) 100 07/04/20 00:00 Mechanical Ventilator Mechanical Ventilator 07/04/20 00:00 57 07/04/20 00:00 98.2 57 26 106/65 (79) 97 07/04/20 00:00 80 07/03/20 23:37 61 26 80 07/03/20 23:00 98.2 57 26 106/65 (79) 97 9/25/20 22:00 57 26 115/61 (79) 97 07/03/20 21:00 62 26 98/53 (68) 97 07/03/20 20:00 80 07/03/20 20:00 64 26 103/71 (82) 96 07/03/20 20:00 Mechanical Ventilator Mechanical Ventilator 07/03/20 20:00 64 07/03/20 19:49 61 26 80 07/03/20 19:00 67 27 118/71 (87) 97 07/03/20 18:00 66 20 135/73 (93) 97 07/03/20 17:00 59 25 113/94 (100) 98 07/03/20 16:26 60 07/03/20 16:00 Mechanical Ventilator Mechanical Ventilator 07/03/20 16:00 98.7 63 27 128/65 (86) 96 07/03/20 16:00 80 07/03/20 15:22 68 26 80 07/03/20 15:00 61 25 123/69 (87) 97 07/03/20 14:00 64 24 119/89 (99) 97 07/03/20 13:00 64 25 130/70 (90) 96 07/03/20 12:10 52 07/03/20 12:00 98.9 58 26 141/76 (97) 96 07/03/20 12:00 80 07/03/20 12:00 Mechanical Ventilator Mechanical Ventilator 07/03/20 11:47 55 26 80 07/03/20 11:15 143/78 07/03/20 11:00 50 26 143/78 (99) 96 07/03/20 10:00 56 25 137/72 (93) 96 Intake and Output 07/03/20 07/04/20 19:00 07:00 Intake Total 700 ml 800 ml Output Total 690 ml 1130 ml Balance 10 ml -330 ml Free Water 200 ml Tube Feeding 600 ml 600 ml Other 100 ml Output Urine Total 640 ml 1055 ml Chest Tube Drainage Total 50 ml 75 ml # Bowel Movements 1 3 Laboratory Tests 07/03/20 09:32: POC Whole Blood Glucose 152H 07/03/20 21:02: POC Whole Blood Glucose 166H 07/03/20 23:57: POC Whole Blood Glucose 186H 07/04/20 04:00: White Blood Count 8.8, Red Blood Count 2.96L, Hemoglobin 9.5L, Hematocrit 28.0L, Mean Corpuscular Volume 94, Mean Corpuscular Hemoglobin 31.9H, Mean Corpuscular Hemoglobin Concent 33.8, Red Cell Distribution Width 16.7H, Platelet Count 86L, Mean Platelet Volume 9.4, Neutrophils (%) (Auto) , Lymphocytes (%) (Auto) , Monocytes (%) (Auto) , Eosinophils (%) (Auto) , Basophils (%) (Auto) , Differential Total Cells Counted 100, Neutrophils % (Manual) 88H, Lymphocytes % (Manual) 6L, Monocytes % (Manual) 6, Eosinophils % (Manual) 0, Basophils % (Manual) 0, Band Neutrophils 0, Platelet Estimate DecreasedL, Platelet Morphology Normal, Hypochromasia 2+, Anisocytosis 1+, Sodium Level 148H, P otassium Level 2.8L, Chloride Level 113H, Carbon Dioxide Level 31, Anion Gap 4L, Blood Urea Nitrogen 29H, Creatinine 0.7, Estimat Glomerular Filtration Rate > 60, Glucose Level 177H, Calcium Level 7.2L, Phosphorus Level 2.0L, Magnesium L evel 1.6L, Total Bilirubin 0.8, Aspartate Amino Transf (AST/SGOT) 30, Alanine Aminotransferase (ALT/SGPT) 52, Alkaline Phosphatase 54, Total Protein 4.0L, Albumin 1.1L, Globulin 2.9, Albumin/Globulin Ratio 0.4L 07/04/20 07:57: Arterial Blood pH 7.533H, Arterial Blood Partial Pressure CO2 32.2L, Arterial Blood Partial Pressure O2 87.4, Arterial Blood HCO3 26.5H, Arterial Blood Oxygen Saturation 96.1, Arterial Blood Base Excess 4.0H, Jonathan Test Positive Height (Feet): 5 Height (Inches): 3.00 Weight (Pounds): 172 General Appearance: no apparent distress EENT: other - Intubated on ventilator Cardiovascular: bradycardia Respiratory/Chest: decreased breath sounds Abdomen: distended Keron Pitt MD Jul 04, 2020 09:17
--- NOTE | 2020-07-04 10:00 | NUR ---
NURSE NOTES: Turned and repositioned with another nurse. No respiratory distress.
[2020-07-04] MEDS: Levemir Flexpen SUBQ SCH ×2 (10:04→20:33)
--- NOTE | 2020-07-04 12:00 | NUR ---
NURSE NOTES: No signs and symptoms of hypoglycemia. Patient tolerating gastrostomy tube feeding.
--- NOTE | 2020-07-04 12:11 | Pulmonolgy Critical Care Note ---
Critical Care - Asmt/Plan Assessment/Plan: ASSESSMENT s/p cardiopulmonary arrest Acute hypoxemic respiratory failure requiring intubation Sepsis with shock Persistent CONS bacteremia Pneumonia ANIRUDH ARDS R PTX, s/p CT placement 06/29 LEANN due to ATN 2 to hypotension Down syndrome Hypothyroidism Seizure disorder Anemia, requiring blood transfusion DM PLAN OF CARE ICU vent support, pulmonary toilet COVID x 3 NGT fup with ABG , remains on high FiO2 , but down to 70 % this am after reviewing of morning ABG R sided PTX, s/p CT placement 06/29, monitor output , daily CXR off PEEP CT surgery follwos Venous duplex BLE NGT, on steroids-Hydrocortisone off pressors; on midodrine Echo with pEF 65% s/p abx as per ID recs COVID-19 x3 NGT prior persistent CONS bacteremia Echo no evidence of vegetation however BCX 06/06, 06/14, 06/16, 06/27 NGT per ID recs keep off abx unless febrile or evidence of infection stool OB + prior off Heparin given stool OB + on SCD s/p 3 u PRBC GI procedures on hold given current condition HH stabilized GI prophylaxis creat worsened due to Vanco , now resolved s/p IVF avoid nephrotoxic correct electrolytes as needed fup with further nephro recs continue levothyroxine , TSH within normal limits BS management with LA Levemir and SSI as needed seizure precautions, supportive care case discussed and evaluated by supervising physician Critical Care - Objective Last 24 Hour Vital Signs Date Time Temp Pulse Resp B/P (MAP) Pulse Ox O2 Delivery O2 Flow Rate FiO2 07/04/20 11:00 47 26 120/67 (84) 96 07/04/20 10:00 48 26 110/61 (77) 96 07/04/20 09:00 48 26 149/107 (121) 98 07/04/20 08:25 70 07/04/20 08:20 70 07/04/20 08:00 98.8 50 26 125/65 (85) 98 07/04/20 08:00 46 07/04/20 08:00 Mechanical Ventilator Mechanical Ventilator 07/04/20 08:00 80 07/04/20 07:05 51 26 80 07/04/20 07:00 55 26 126/62 (83) 98 07/04/20 06:00 47 26 120/105 (110) 98 07/04/20 05:00 58 26 131/65 (87) 98 07/04/20 04:00 Mechanical Ventilator Mechanical Ventilator 07/04/20 04:00 56 07/04/20 04:00 80 07/04/20 04:00 98.6 49 26 107/62 (77) 97 07/04/20 03:37 54 26 80 07/04/20 03:00 65 27 120/90 (100) 99 07/04/20 02:00 59 25 126/87 (100) 99 07/04/20 01:00 55 26 144/76 (98) 100 07/04/20 00:00 Mechanical Ventilator Mechanical Ventilator 07/04/20 00:00 57 07/04/20 00:00 98.2 57 26 106/65 (79) 97 07/04/20 00:00 80 07/03/20 23:37 61 26 80 07/03/20 23:00 98.2 57 26 106/65 (79) 97 07/03/20 22:00 57 26 115/61 (79) 97 07/03/20 21:00 62 26 98/53 (68) 97 07/03/20 20:00 80 07/03/20 20:00 64 26 103/71 (82) 96 07/03/20 20:00 Mechanical Ventilator Mechanical Ventilator 07/03/20 20:00 64 07/03/20 19:49 61 26 80 07/03/20 19:00 67 27 118/71 (87) 97 07/03/20 18:00 66 20 135/73 (93) 97 07/03/20 17:00 59 25 113/94 (100) 98 07/03/20 16:26 60 07/03/20 16:00 Mechanical Ventilator Mechanical Ventilator 07/03/20 16:00 98.7 63 27 128/65 (86) 96 07/03/20 16:00 80 07/03/20 15:22 68 26 80 07/03/20 15:00 61 25 123/69 (87) 97 07/03/20 14:00 64 24 119/89 (99) 97 07/03/20 13:00 64 25 130/70 (90) 96 07/03/20 12:10 52 Decubiti: stage Objective: Status: sedated, on Vent AC 500-26- 70% no PEEP Condition: critical HEENT: atraumatic, normocephalic, face with Down features, OP with ET in place, intact Lungs: decreased BS on the right side, R sided CT to Hemovac with serosanguineous drainage Abdomen: soft, non-tender, feeding tube Decubiti: +1 edema BLE Accucheck: 201 Critical Care - Subjective ROS Limited/Unobtainable: Yes Interval Events: no fevers, no leukocytosis tachypneic ABG this am stable, FiO2 down to 70% from 80%, no PEEP R sided CT with serosanguineous drainage, CXR 07/04 - no definite PTX low K, Mg and P- already replaced by nephro Condition: critical IV Access: PICC - LUE PICC intact EKG Rhythm: Sinus Bradycardia FI02: 70 Vent Support Breath Rate: 26 Vent Support Mode: AC Vent Tidal Volume: 500 Sputum Amount: Moderate PEEP: 0.0 PIP: 42 Tube Feeding Amount: 50 I&O: Intake and Output 07/03/20 07/04/20 19:00 07:00 Intake Total 700 ml 800 ml Output Total 690 ml 1130 ml Balance 10 ml -330 ml Free Water 200 ml Tube Feeding 600 ml 600 ml Other 100 ml Output Urine Total 640 ml 1055 ml Chest Tube Drainage Total 50 ml 75 ml # Bowel Movements 1 3 CXR: 07/04 -Endotracheal tube terminates approximately 4.0 cm above the joseph. EKG leads overlie the patient. Extensive bilateral airspace opacities consistent with multifocal infiltrate, similar in appearance to chest radiograph from July 03, 2020. Right-sided chest tube, unchanged. No definite pneumothorax. Cardiomegaly. ET-Tube: 7.5 ET Position: 22 Carla Jj [employer] Jul 04, 2020 12:11
--- NOTE | 2020-07-04 13:20 | NUR ---
NURSE NOTES: Dr. Copeland at bedside.
--- NOTE | 2020-07-04 13:20 | Internal Med Progress Note ---
Subjective Date of Service: Jul 04, 2020 Physician Name Joni Copeland Attending Physician Elayne Allred MD Current Medications Medications (Trade) Dose Ordered Sig/Katy Route PRN Reason Start Time Stop Time Status Last Admin Dose Admin Acetaminophen (Tylenol) 650 mg Q4H PRN GT For Pain 07/01/20 17:15 07/31/20 17:14 07/01/20 17:23 Chlorhexidine Gluconate (Alla-Hex 2%) 1 applic [id number]@1999 TOPIC 06/08/20 20:00 09/06/20 19:59 07/03/20 20:57 Clotrimazole (Lotrimin) 1 applic Q12HR TOPIC 06/07/20 13:00 09/05/20 12:59 07/04/20 08:48 Dextrose (Dextrose 50%) 25 ml Q30M PRN IV Hypoglycemia 06/03/20 11:30 08/28/20 11:29 Dextrose (Dextrose 50%) 50 ml Q30M PRN IV Hypoglycemia 06/03/20 11:30 08/28/20 11:29 Hydrocortisone (Solu-CORTEF) 50 mg EVERY 8 HOURS IV 07/03/20 22:00 09/05/20 13:59 07/04/20 13:12 Insulin Aspart (NovoLOG) Q6HR SUBQ 06/26/20 12:00 09/24/20 11:59 07/04/20 13:13 Insulin Detemir (Levemir) 10 units Q12HR SUBQ 06/26/20 10:00 09/24/20 09:59 07/04/20 10:04 Loperamide HCl (Imodium) 2 mg Q6H PRN NG Diarrhea 06/24/20 10:30 07/24/20 10:29 07/01/20 11:41 Midodrine (Pro-Amatine) 10 mg Q8HR GT 06/05/20 14:00 09/03/20 13:59 07/04/20 13:12 Potassium Phosphate 250 ml @ 62.5 mls/hr Q4H IVPB 07/04/20 16:30 07/05/20 00:29 Potassium Chloride 100 ml @ 50 mls/hr Q2H IVPB 07/04/20 10:00 07/04/20 13:59 07/04/20 12:24 Potassium Chloride (K-Dur) 40 meq TWICE A DAY GT 06/28/20 12:15 09/26/20 12:14 07/04/20 09:31 Allergies: Coded Allergies: No Known Allergies (Unverified , 10/16/18) ROS Limited/Unobtainable: Yes Subjective 59 YO F with Down's syndrome admitted with hypoxia. Now sepsis and pneumonia. Cover for Int Arturo-DR Hawk. ICU. Intubated and sedated Objective Last Vital Signs Date Time Temp Pulse Resp B/P (MAP) Pulse Ox O2 Delivery O2 Flow Rate FiO2 07/04/20 13:00 45 26 107/83 (91) 95 07/04/20 12:00 Mechanical Ventilator Mechanical Ventilator 07/04/20 08:25 70 07/04/20 08:00 98.8 Laboratory Tests Test 07/03/20 21:02 07/03/20 23:57 07/04/20 04:00 07/04/20 07:57 POC Whole Blood Glucose 166 MG/DL (74-106) H 186 MG/DL (74-106) H White Blood Count 8.8 K/UL (4.8-10.8) Red Blood Count 2.96 M/UL (4.20-5.40) L Hemoglobin 9.5 G/DL (12.0-16.0) L Hematocrit 28.0 % (37.0-47.0) L Mean Corpuscular Volume 94 FL (80-99) Mean Corpuscular Hemoglobin 31.9 PG (27.0-31.0) H Mean Corpuscular Hemoglobin Concent 33.8 G/DL (32.0-36.0) Red Cell Distribution Width 16.7 % (11.6-14.8) H Platelet Count 86 K/UL (150-450) L Mean Platelet Volume 9.4 FL (6.5-10.1) Neutrophils (%) (Auto) % (45.0-75.0) Lymphocytes (%) (Auto) % (20.0-45.0) Monocytes (%) (Auto) % (1.0-10.0) Eosinophils (%) (Auto) % (0.0-3.0) Basophils (%) (Auto) % (0.0-2.0) Differential Total Cells Counted 100 Neutrophils % (Manual) 88 % (45-75) H Lymphocytes % (Manual) 6 % (20-45) L Monocytes % (Manual) 6 % (1-10) Eosinophils % (Manual) 0 % (0-3) Basophils % (Manual) 0 % (0-2) Band Neutrophils 0 % (0-8) Platelet Estimate Decreased L Platelet Morphology Normal Hypochromasia 2+ Anisocytosis 1+ Sodium Level 148 MMOL/L (136-145) H Potassium Level 2.8 MMOL/L (3.5-5.1) L Chloride Level 113 MMOL/L (98-107) H Carbon Dioxide Level 31 MMOL/L (21-32) Anion Gap 4 mmol/L (5-15) L Blood Urea Nitrogen 29 mg/dL (7-18) H Creatinine 0.7 MG/DL (0.55-1.30) Estimat Glomerular Filtration Rate > 60 mL/min (>60) Glucose Level 177 MG/DL (74-106) H Calcium Level 7.2 MG/DL (8.5-10.1) L Phosphorus Level 2.0 MG/DL (2.5-4.9) L Magnesium Level 1.6 MG/DL (1.8-2.4) L Total Bilirubin 0.8 MG/DL (0.2-1.0) Aspartate Amino Transf (AST/SGOT) 30 U/L (15-37) Alanine Aminotransferase (ALT/SGPT) 52 U/L (12-78) Alkaline Phosphatase 54 U/L (46-116) Total Protein 4.0 G/DL (6.4-8.2) L Albumin 1.1 G/DL (3.4-5.0) L Globulin 2.9 g/dL Albumin/Globulin Ratio 0.4 (1.0-2.7) L Arterial Blood pH 7.533 (7.350-7.450) Arterial Blood Partial Pressure CO2 32.2 mmHg (35.0-45.0) L Arterial Blood Partial Pressure O2 87.4 mmHg (75.0-100.0) Arterial Blood HCO3 26.5 mmol/L (22.0-26.0) H Arterial Blood Oxygen Saturation 96.1 % (95-100) Arterial Blood Base Excess 4.0 (-2-2) H Jonathan Test Positive Intake and Output 07/03/20 07/04/20 19:00 07:00 Intake Total 700 ml 800 ml Output Total 690 ml 1130 ml Balance 10 ml -330 ml Free Water 200 ml Tube Feeding 600 ml 600 ml Other 100 ml Output Urine Total 640 ml 1055 ml Chest Tube Drainage Total 50 ml 75 ml # Bowel Movements 2 3 Objective General Appearance: WD/WN, no apparent distress, alert EENT: PERRL/EOMI, normal ENT inspection Neck: non-tender, normal alignment, supple, normal inspection Cardiovascular: normal peripheral pulses, normal rate, regular rhythm, no gallop/murmur, no JVD Respiratory/Chest: Mech vent; decreased breath sounds, crackles/rales, rhonchi - bilaterally, expiratory wheezing Abdomen: normal bowel sounds, non tender, soft, no organomegaly, no mass Extremities: normal range of motion 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 Continue amikacin per ID=Dr Camejo. Pulmonary/Critical care=DR Allred. COVID NEG (2) Sepsis Assessment & Plan: Staph haemolyticus. Continue amikacin per ID=Dr Camejo (3) Down's syndrome (4) Dysphagia Assessment & Plan: S/P PEG (5) Seizure disorder Assessment & Plan: Continue keppra and depakote (6) Hypothyroidism Assessment & Plan: Continue synthroid (7) Acute respiratory failure Assessment & Plan: Pulmonary = Dr Allred; [facility] vent Joni Copeland MD Jul 04, 2020 13:20
--- NOTE | 2020-07-04 15:00 | NUR ---
NURSE NOTES: Bedbath provided. Right lateral chest tube remains inplace, on low intermittent suction.
[2020-07-04] MEDS: Potassium Phosphate 15mm/250ml 250 ML IVPB SCH ×2 (16:46→20:34)
--- NOTE | 2020-07-04 17:00 | NUR ---
NURSE NOTES: No signs and symptoms of hypoglycemia. Blood sugar of 120 noted.
--- NOTE | 2020-07-04 17:52 | Cardiology Progress Note ---
Assessment/Plan Assessment/Plan pneumonia, respiratory distress, on vent and intubated for a long time Subjective Subjective The patient is lethargic, does not follow commands Objective Last 24 Hour Vital Signs Date Time Temp Pulse Resp B/P (MAP) Pulse Ox O2 Delivery O2 Flow Rate FiO2 07/04/20 17:00 53 29 110/59 (76) 96 07/04/20 16:00 98.5 72 24 101/78 (86) 95 07/04/20 16:00 70 07/04/20 16:00 Mechanical Ventilator Mechanical Ventilator 07/04/20 15:46 64 07/04/20 15:05 62 26 70 07/04/20 15:00 55 27 106/93 (97) 95 07/04/20 14:00 56 28 110/73 (85) 98 07/04/20 13:00 45 26 107/83 (91) 95 07/04/20 12:00 99.0 57 28 138/63 (88) 96 07/04/20 12:00 Mechanical Ventilator Mechanical Ventilator 07/04/20 11:52 46 07/04/20 11:05 47 26 70 07/04/20 11:00 47 26 120/67 (84) 96 07/04/20 10:00 48 26 110/61 (77) 96 07/04/20 09:00 48 26 149/107 (121) 98 07/04/20 08:25 70 07/04/20 08:20 70 07/04/20 08:00 98.8 50 26 125/65 (85) 98 07/04/20 08:00 46 07/04/20 08:00 Mechanical Ventilator Mechanical Ventilator 07/04/20 08:00 80 07/04/20 07:05 51 26 80 07/04/20 07:00 55 26 126/62 (83) 98 07/04/20 06:00 47 26 120/105 (110) 98 07/04/20 05:00 58 26 131/65 (87) 98 07/04/20 04:00 Mechanical Ventilator Mechanical Ventilator 07/04/20 04:00 56 07/04/20 04:00 80 07/04/20 04:00 98.6 49 26 107/62 (77) 97 07/04/20 03:37 54 26 80 07/04/20 03:00 65 27 120/90 (100) 99 07/04/20 02:00 59 25 126/87 (100) 99 07/04/20 01:00 55 26 144/76 (98) 100 07/04/20 00:00 Mechanical Ventilator Mechanical Ventilator 07/04/20 00:00 57 07/04/20 00:00 98.2 57 26 106/65 (79) 97 07/04/20 00:00 80 07/03/20 23:37 61 26 80 07/03/20 23:00 98.2 57 26 106/65 (79) 97 07/03/20 22:00 57 26 115/61 (79) 97 07/03/20 21:00 62 26 98/53 (68) 97 07/03/20 20:00 80 07/03/20 20:00 64 26 103/71 (82) 96 07/03/20 20:00 Mechanical Ventilator Mechanical Ventilator 07/03/20 20:00 64 07/03/20 19:49 61 26 80 07/03/20 19:00 67 27 118/71 (87) 97 07/03/20 18:00 66 20 135/73 (93) 97 General Appearance: on vent, other - unresponsive EENT: PERRL/EOMI Neck: no JVD Cardiovascular: regular rhythm, bradycardia Respiratory/Chest: rhonchi - bilaterally Abdomen: no mass Intake and Output 07/03/20 07/04/20 19:00 07:00 Intake Total 700 ml 800 ml Output Total 690 ml 1130 ml Balance 10 ml -330 ml Free Water 200 ml Tube Feeding 600 ml 600 ml Other 100 ml Output Urine Total 640 ml 1055 ml Chest Tube Drainage Total 50 ml 75 ml # Bowel Movements 2 3 Laboratory Tests Test 07/03/20 21:02 07/03/20 23:57 07/04/20 04:00 07/04/20 07:57 POC Whole Blood Glucose 166 MG/DL (74-106) H 186 MG/DL (74-106) H White Blood Count 8.8 K/UL (4.8-10.8) Red Blood Count 2.96 M/UL (4.20-5.40) L Hemoglobin 9.5 G/DL (12.0-16.0) L Hematocrit 28.0 % (37.0-47.0) L Mean Corpuscular Volume 94 FL (80-99) Mean Corpuscular Hemoglobin 31.9 PG (27.0-31.0) H Mean Corpuscular Hemoglobin Concent 33.8 G/DL (32.0-36.0) Red Cell Distribution Width 16.7 % (11.6-14.8) H Platelet Count 86 K/UL (150-450) L Mean Platelet Volume 9.4 FL (6.5-10.1) Neutrophils (%) (Auto) % (45.0-75.0) Lymphocytes (%) (Auto) % (20.0-45.0) Monocytes (%) (Auto) % (1.0-10.0) Eosinophils (%) (Auto) % (0.0-3.0) Basophils (%) (Auto) % (0.0-2.0) Differential Total Cells Counted 100 Neutrophils % (Manual) 88 % (45-75) H Lymphocytes % (Manual) 6 % (20-45) L Monocytes % (Manual) 6 % (1-10) Eosinophils % (Manual) 0 % (0-3) Basophils % (Manual) 0 % (0-2) Band Neutrophils 0 % (0-8) Platelet Estimate Decreased L Platelet Morphology Normal Hypochromasia 2+ Anisocytosis 1+ Sodium Level 148 MMOL/L (136-145) H Potassium Level 2.8 MMOL/L (3.5-5.1) L Chloride Level 113 MMOL/L (98-107) H Carbon Dioxide Level 31 MMOL/L (21-32) Anion Gap 4 mmol/L (5-15) L Blood Urea Nitrogen 29 mg/dL (7-18) H Creatinine 0.7 MG/DL (0.55-1.30) Estimat Glomerular Filtration Rate > 60 mL/min (>60) Glucose Level 177 MG/DL (74-106) H Calcium Level 7.2 MG/DL (8.5-10.1) L Phosphorus Level 2.0 MG/DL (2.5-4.9) L Magnesium Level 1.6 MG/DL (1.8-2.4) L Total Bilirubin 0.8 MG/DL (0.2-1.0) Aspartate Amino Transf (AST/SGOT) 30 U/L (15-37) Alanine Aminotransferase (ALT/SGPT) 52 U/L (12-78) Alkaline Phosphatase 54 U/L (46-116) Total Protein 4.0 G/DL (6.4-8.2) L Albumin 1.1 G/DL (3.4-5.0) L Globulin 2.9 g/dL Albumin/Globulin Ratio 0.4 (1.0-2.7) L Arterial Blood pH 7.533 (7.350-7.450) Arterial Blood Partial Pressure CO2 32.2 mmHg (35.0-45.0) L Arterial Blood Partial Pressure O2 87.4 mmHg (75.0-100.0) Arterial Blood HCO3 26.5 mmol/L (22.0-26.0) H Arterial Blood Oxygen Saturation 96.1 % (95-100) Arterial Blood Base Excess 4.0 (-2-2) H Jonathan Test Positive Test 07/04/20 10:02 07/04/20 13:03 07/04/20 17:09 POC Whole Blood Glucose 201 MG/DL (74-106) H 186 MG/DL (74-106) H 120 MG/DL (74-106) H Lesley Mandel MD Jul 04, 2020 17:52
--- NOTE | 2020-07-04 18:00 | NUR ---
NURSE NOTES: 40ml fluid output noted from right lateral chest tube within the shift.
--- NOTE | 2020-07-04 19:35 | NUR ---
NURSE HAND-OFF REPORT: Latest Vital Signs: Temperature 98.5 , Pulse 61 , B/P 109 /67 , Respiratory Rate 26 , O2 SAT 92 , Mechanical Ventilator, O2 Flow Rate 15.0 . Vital Sign Comment: Currently on K Phos drip, first bag out of 2. Right lateral chest tube connected to low intermittent suction. EKG Rhythm: Sinus Rhythm Rhythm change?: N Latest Osorio Fall Score: 70 Fall Risk: High Risk Safety Measures: Call light Within Reach, Bed Alarm Zone 1, Side Rails Side Rails x3, Bed position Low and Locked. Fall Precautions: Yellow Socks Door Sign Patient Fall Education Contact isolation endorsed. Report given to Ana Rojas RN.
[2020-07-04] MEDS: Dyna-Hex 2% Top Sol 2oz TOPIC SCH (20:31)
--- NOTE | 2020-07-04 20:44 | NUR ---
NURSE NOTES: Received patient with eyes open. Aox1 opens eyes to name. Orally intubated ETT 7.5, 22cm lipline. Vent settings AC 26, VT 500, fio2 70%. JODY PICC line noted TKO. Lines flush well but no blood return noted. Right chest tube connected to Low intermittent suction, Dressing dry and intact at this time. Gregorio cath draining to gravity,. SCD's on. Bilateral Heels and Arms elevated at this time. P200 mattress on. Afebrile. No signs of distress noted. Will continue to monitor.
--- NOTE | 2020-07-04 22:30 | NUR ---
NURSE NOTES: Wound care pictures taken and dressing changes done. Bed bath with CHG also provided. Patient noted to have small skin tears on right abdomen, draining serious fluid, covered with Optifoam. Chest tube continues on low intermittent suction at this time. Dressing remains dry and intact. Oral care provided. Will continue to monitor.
--- NOTE | 2020-07-04 23:30 | NUR ---
NURSE NOTES: Central line dressing changed. Turned and repositioned for comfort. Now signs of distress noted. Will continue to monitor.
[2020-07-05] VITALS (23 sets, daily range): BP systolic 89–153; BP diastolic 55–95
--- NOTE | 2020-07-05 01:30 | NUR ---
NURSE NOTES: Patient awake at this time. Chest tube continues to drain serous fluid at this time. Dressing remain dry and intact. Gregorio Draining. FIO2 continues at 70% with Sats 95-97%. Will Continue to monitor.
--- NOTE | 2020-07-05 03:30 | NUR ---
NURSE NOTES: Patient turned and repositioned. Noted to leak Serous fluid from abdominal skin tear. Dressing changed at this time. Chest tuned dressing dry and on tact. Patient has one brown BM also. Sacral dressing remains dry and intact. FIO2 now 60%. Oral care provided. No signs of distress noted. Will continue to monitor.
--- NOTE | 2020-07-05 04:13 | NUR ---
NURSE NOTES: Placed back on 70% fio2. Noted Sats 90-91%. RT made aware. Sats now 96%. Will continue to monitor.
[2020-07-05] MEDS: Midodrine 10mg tab GT SCH ×3 (05:18→22:00)
[2020-07-05] MEDS: Hydrocortisone 100mg Inj IV SCH ×4 (05:18→22:11)
[2020-07-05] MEDS: NovoLOG Insulin Flexpen SUBQ SCH ×3 (05:19→17:56)
[2020-07-05 05:31] LABS: ALANINE AMINOTRANSFERASE 45 U/L (12-78); ALBUMIN 1.2 G/DL (3.4-5.0); ALBUMIN/GLOBULIN RATIO 0.4 (1.0-2.7); ALKALINE PHOSPHATASE 54 U/L (46-116); ANION GAP 4 mmol/L (5-15); ASPARTATE AMINO TRANSFERASE 23 U/L (15-37); BILIRUBIN,TOTAL 0.7 MG/DL (0.2-1.0); BLOOD UREA NITROGEN 25 mg/dL (7-18); CALCIUM 7.2 MG/DL (8.5-10.1); CARBON DIOXIDE 30 MMOL/L (21-32); CHLORIDE 113 MMOL/L (98-107); CREATININE 0.6 MG/DL (0.55-1.30); PHOSPHORUS 3.3 MG/DL (2.5-4.9); POTASSIUM 3.7 MMOL/L (3.5-5.1); SODIUM 147 MMOL/L (136-145)
[2020-07-05 05:41] LABS: HEMATOCRIT 28.3 % (37.0-47.0); HEMOGLOBIN 9.4 G/DL (12.0-16.0); MEAN CORPUSCULAR VOLUME 94 FL (80-99); PLATELET COUNT 89 K/UL (150-450); RED CELL DISTRIBUTION WIDTH 16.6 % (11.6-14.8); WHITE BLOOD COUNT 6.7 K/UL (4.8-10.8)
--- NOTE | 2020-07-05 06:10 | NUR ---
NURSE NOTES: Patient turned and repositioned at this time. Chest tube continues on Low intermitted Suction. Not signs of distress noted. Will continue to monitor .
--- NOTE | 2020-07-05 07:03 | NUR ---
NURSE HAND-OFF REPORT: Latest Vital Signs: Temperature 98.4 , Pulse 55 , B/P 131 /62 , Respiratory Rate 26 , O2 SAT 96 , Mechanical Ventilator, O2 Flow Rate 15.0 . Vital Sign Comment: EKG Rhythm: Sinus Bradycardia Rhythm change?: N MD Notified?: N- MD Aware MD Response: Latest Osorio Fall Score: 70 Fall Risk: High Risk Safety Measures: Call light Within Reach, Bed Alarm Zone 1, Side Rails Side Rails x3, Bed position Low and Locked. Fall Precautions: Yellow Socks Door Sign Patient Fall Education Report given to Haley Ashraf Charge Nurse.
--- NOTE | 2020-07-05 07:30 | NUR ---
NURSE NOTES: Report received from Pascale manriquez RN.Pt awake,noted no resp distress orally intubated,ETT 7.5 lip line 22 cm,AC26,TV500,Fio2 70% RT Chest tube in placed,no signs of pain or discomfort, SR on the , GTF Vital AF 1.2 at 50 m,l/hrs Gregorio cath draining yellow urine ,skin warm and edematous,with water sipping thru the skin,IV site to JODY PICC line intact ,SR up x2 HOB elevated bed lock in lowest position,will continue with plans of care.
[2020-07-05] MEDS ORDERED: NS 275ml ONE (08:37)
[2020-07-05] MEDS ORDERED: Tubing IV Secondary IV ONE ×2 (08:37→21:17)
--- NOTE | 2020-07-05 09:01 | Nephrology Progress Note ---
Assessment/Plan Problem List: (1) LEANN (acute kidney injury) (2) Respiratory failure requiring intubation (3) Down's syndrome (4) Seizure disorder (5) Hypothyroidism Assessment Acute renal failure, likely due to hypotension Acute respiratory distress, hypoxia Seizure disorder Hypothyroidism Down syndrome Full code Fluid challenge with IV fluids and albumin Midodrine for BP above 100 systolic Check TSH level Check Correct level Monitor renal parameters Urine studies Per orders Plan July 05: Remains intubated. Full code. No plan for tracheostomy yet. Labs reviewed. All acceptable. Continue same management July 04: Labs reviewed. Discussed with RN. Potassium and phosphorus and magnesium replacement ordered. Hemoglobin 9.5. Patient remains full code. Continue per consultants. July 03: Lab reviewed. Renal parameters stable. Full code. Intubated. Electrolyte abnormalities addressed and replacement done. July 02: Lab reviewed. Renal parameters stable. Full code. Intubated. Has right side chest tube. Continue per consultants. July 01: Lab reviewed. Renal parameters stable. Full code. Has right chest tube. Planning process for tracheostomy. Defer to chest and general surgeon. June 30: Labs reviewed. Renal parameters stable. Remains full code. Remains on ventilator. Due for tracheostomy tomorrow. Continue per consultants. Patient has a right chest tube in place at this time. June 29: Labs reviewed. Electrolyte imbalances addressed and supplemented. Remains full code and on ventilator. Continue to monitor renal parameters. Continue per consultants. June 28: Labs reviewed. Serum potassium again low today. Potassium supp lement IV and through GT given. Patient remains full code and is on ventilator. Continue per consultants. Continue to monitor electrolytes and renal parameters. June 27: Labs reviewed. Abnormal electrolyte addressed. Remains full code. Remains vented. June 26: Day 27 of hospitalization. Full code. Labs reviewed. Hemoglobin down to 7.5. Electrolyte abnormalities addressed and corrections ordered. Continue to monitor renal parameters. Continue per consultants. Start on Levemir for blood sugar management. Questioning continuation of hydrocortisone? June 25: Labs reviewed. Potassium, phosphorus, hemoglobin, are all low. Potassium and phosphorus IV replacement given. Continue to monitor electrolytes and CBC. Patient remains full code. June 24: Lab reviewed. Low phosphorus low magnesium and low potassium was addressed. Hemoglobin drifting lower. Continue per consultants. Patient remains full code. June 23: Labs reviewed. Patient continues to be on ventilator. D5W for high sodium and also potassium chloride intravenously as supplement given. Hemoglobin 8.4. Continue to monitor electrolytes and renal parameters. June 22: Labs reviewed. Low potassium and high sodium noted. Hemoglobin 8.1 stable. Aim to correct abnormal electrolyte. Continue rest. Will give 2 boluses of D5W 500 cc. June 21: Lab reviewed. Abnormal electrolytes noted and addressed. June 20: Labs reviewed. Potassium supplement given. Patient remains full code. Continue per consultants. June 19: Lab reviewed. Electrolyte abnormalities addressed. Continue per pulmonary and ID. June 18: Lab reviewed. Status unchanged. Serum sodium 151 unchanged. Stable from renal standpoint of view. June 17: Labs reviewed. Status quo. D5W 500 cc IV ordered. Continue to monitor renal parameters. June 16: Status quo. Labs reviewed. Overall condition unchanged. Patient was transfused and hemoglobin higher. Continue current management. Patient remains full code. June 15: Status quo. Overall condition poor. Very low albumin. Edematous. Hypotensive. Hemoglobin lower. Anemia work-up ordered. I favor transfusion 2 units of packed RBCs. Patient remains full code. I favor supportive care only. Will discuss. June 14: Electrolyte abnormalities addressed. Serum creatinine lower. Continue per current management. June 13: Status unchanged. Lab reviewed. Serum potassium 2.7. IV potassium chloride ordered. Serum creatinine low at 1.6 stable. Blood pressure 90s systolic June 12: Status quo. Labs reviewed. Renal parameters stable. Serum creatinine down to 1.6. Medication list reviewed. Continues to be on midodrine. Continue per consultants. June 11: Status quo. Labs reviewed. Electrolytes adjusted. Serum creatinine down to 1.8. Continue per consultants. June 10: Status quo. Labs reviewed. Phosphorus supplement IV given. Serum creatinine 2. Continue per consultants. June 09: Requires less pressors. Albumin bolus given. 1 dose of Lasix IV ordered as the patient severely edematous. Patient serum albumin is very low. Continue per consultants. June 08: Continues to be intubated. Labs reviewed. Serum creatinine 1.9 unchanged. Blood pressure more stable. Off 1 of the pressors. Continue to monitor renal parameters. Continue per consultants. Patient now on hydrocortisone 100 mg every 8 hours. Will decrease IV fluid. Normal saline down to 50 cc an hour. June 07: Intubated. Labs reviewed. Creatinine 1.9 unchanged. Continue same treatment plan. Per consultants. Overall poor prognosis since the patient remains on pressors and her pulmonary status is worsening. June 06: Remains intubated. Labs reviewed. Creatinine 1.9. Blood pressure systolic 90s. Continue per consultants. June 05: Remains intubated. Labs reviewed. Serum creatinine lower to 2. Vancomycin level lower. Remains hypotensive on pressors. Will increase midodrine to 10 mg every 8 hours. Continue per consultants. Continue to monitor renal parameters. June 04: Patient now in ICU. Intubated. On pressors. Labs reviewed. Will increase midodrine. Aim to keep blood pressure over 100 systolic. Will give albumin bolus. Will check vancomycin level which was elevated when checked previously on June 01. Will monitor renal parameters. Continue per consultants. Subjective ROS Limited/Unobtainable: Yes Objective Objective Last 24 Hour Vital Signs Date Time Temp Pulse Resp B/P (MAP) Pulse Ox O2 Delivery O2 Flow Rate FiO2 07/05/20 08:00 Mechanical Ventilator Mechanical Ventilator Mechanical Ventilator 07/05/20 08:00 98.7 52 26 133/66 (88) 95 07/05/20 08:00 54 07/05/20 08:00 70 07/05/20 06:00 55 26 131/62 (85) 96 07/05/20 05:00 57 25 103/61 (75) 97 07/05/20 04:00 70 07/05/20 04:00 Mechanical Ventilator Mechanical Ventilator Mechanical Ventilator 07/05/20 04:00 63 07/05/20 04:00 98.4 62 30 98/58 (71) 96 07/05/20 03:07 60 26 60 07/05/20 03:00 62 23 115/80 (92) 97 07/05/20 02:00 56 20 132/68 (89) 96 07/05/20 01:00 54 20 127/86 (100) 96 07/05/20 00:00 70 07/05/20 00:00 Mechanical Ventilator Mechanical Ventilator Mechanical Ventilator 07/05/20 00:00 55 07/05/20 00:00 98.6 54 23 116/64 (81) 97 07/04/20 23:00 71 20 111/95 (100) 68 07/04/20 22:51 58 26 70 07/04/20 22:00 64 30 103/79 (87) 93 07/04/20 21:00 64 27 108/86 (93) 100 07/04/20 20:00 98.7 64 26 107/63 (78) 95 07/04/20 20:00 70 07/04/20 20:00 Mechanical Ventilator Mechanical Ventilator Mechanical Ventilator Mechanical Ventilator 07/04/20 20:00 62 07/04/20 19:18 61 26 70 07/04/20 19:00 60 26 109/67 (81) 92 07/04/20 18:00 55 26 98/64 (75) 96 07/04/20 17:00 53 29 110/59 (76) 96 07/04/20 16:00 98.5 72 24 101/78 (86) 95 07/04/20 16:00 70 07/04/20 16:00 Mechanical Ventilator Mechanical Ventilator 07/04/20 15:46 64 07/04/20 15:05 62 26 70 07/04/20 15:00 55 27 106/93 (97) 95 07/04/20 14:00 56 28 110/73 (85) 98 07/04/20 13:00 45 26 107/83 (91) 95 07/04/20 12:00 99.0 57 28 138/63 (88) 96 07/04/20 12:00 Mechanical Ventilator Mechanical Ventilator 07/04/20 11:52 46 07/04/20 11:05 47 26 70 07/04/20 11:00 47 26 120/67 (84) 96 07/04/20 10:00 48 26 110/61 (77) 96 07/04/20 09:00 48 26 149/107 (121) 98 Intake and Output 07/04/20 07/05/20 19:00 07:00 Intake Total 1385.0 ml 1100.0 ml Output Total 685 ml 1115 ml Balance 700.0 ml -15.0 ml IV Total 725.0 ml 250.0 ml Tube Feeding 600 ml 550 ml Other 60 ml 300 ml Output Urine Total 645 ml 1075 ml Chest Tube Drainage Total 40 ml 40 ml # Bowel Movements 2 Laboratory Tests 07/04/20 10:02: POC Whole Blood Glucose 201H 07/04/20 13:03: POC Whole Blood Glucose 186H 07/04/20 17:09: POC Whole Blood Glucose 120H 07/04/20 20:29: POC Whole Blood Glucose [Pending] 07/04/20 23:32: POC Whole Blood Glucose 141H 07/05/20 03:30: White Blood Count 6.7, Red Blood Count 3.00L, Hemoglobin 9.4L, Hematocrit 28.3L, Mean Corpuscular Volume 94, Mean Corpuscular Hemoglobin 31.4H, Mean Corpuscular Hemoglobin Concent 33.3, Red Cell Distribution Width 16.6H, Platelet Count 89L, Mean Platelet Volume 9.3, Neutrophils (%) (Auto) , Lymphocytes (%) (Auto) , Monocytes (%) (Auto) , Eosinophils (%) (Auto) , Basophils (%) (Auto) , Differential Total Cells Counted 100, Neutrophils % (Manual) 87H, Lymphocytes % (Manual) 9L, Monocytes % (Manual) 4, Eosinophils % (Manual) 0, Basophils % (Manual) 0, Band Neutrophils 0, Platelet Estimate DecreasedL, Platelet Morphology Normal, Hypochromasia 2+, Anisocytosis 1+, Spherocytes 1+, Sodium Level 147H, Potassium Level 3.7, Chloride Level 113H, Carbon Dioxide Level 30, Anion Gap 4L, Blood Urea Nitrogen 25H, Creatinine 0.6, Estimat Glomerular Filtration Rate > 60, Glucose Level 172H, Calcium Level 7.2L, Phosphorus Level 3.3, Magnesium Level 2.0, Total Bilirubin 0.7, Aspartate Amino Transf (AST/SGOT) 23, Alanine Aminotransferase (ALT/SGPT) 45, Alkaline Phosphatase 54, Total Protein 4.3L, Albumin 1.2L, Globulin 3.1, Albumin/Globulin Ratio 0.4L 07/05/20 05:12: POC Whole Blood Glucose 180H 07/05/20 07:52: Arterial Blood pH 7.514H, Arterial Blood Partial Pressure CO2 31.1L, Arterial Blood Partial Pressure O2 82.0, Arterial Blood HCO3 24.5, Arterial Blood Oxygen Saturation 95.5, Arterial Blood Base Excess 1.9, Jonathan Test Positive Height (Feet): 5 Height (Inches): 3.00 Weight (Pounds): 172 General Appearance: no apparent distress EENT: other - Remains intubated ventilator Cardiovascular: bradycardia Respiratory/Chest: decreased breath sounds Abdomen: soft Keron Pitt MD Jul 05, 2020 09:01
[2020-07-05] MEDS: Levemir Flexpen SUBQ SCH ×2 (09:33→20:44)
--- NOTE | 2020-07-05 09:38 | Diagnostic Imaging Report ---
EXAM: XR Chest, 1 View CLINICAL HISTORY: SOB TECHNIQUE: Frontal view of the chest. COMPARISON: Chest radiograph July 04, 2020. FINDINGS/IMPRESSION: Endotracheal tube terminates 3.5 cm above the joseph. Left upper extremity PICC line terminates in the superior vena cava. Right-sided chest tube. Pulmonary edema versus multifocal infiltrate/ARDS. Small bilateral pleural effusions. No pneumothorax. Overall, the degree of airspace opacification is similar in appearance to July 04, 2020. Continued follow up recommended. Cardiomegaly.
--- NOTE | 2020-07-05 10:00 | NUR ---
NURSE NOTES: Bed bath given,pt soaked up with urine,Gregorio cath got detached from th connection,pulled up repositioned,kept dry and clean.
--- NOTE | 2020-07-05 10:29 | Pulmonolgy Critical Care Note ---
Critical Care - Asmt/Plan Assessment/Plan: ASSESSMENT s/p cardiopulmonary arrest Acute hypoxemic respiratory failure requiring intubation Sepsis with shock Persistent CONS bacteremia Pneumonia ANIRUDH Pulm edema/ ARDS R PTX, s/p CT placement 06/29 LEANN due to ATN 2 to hypotension Down syndrome Hypothyroidism Seizure disorder Anemia, requiring blood transfusion DM PLAN OF CARE ICU vent support, pulmonary toilet COVID x 3 NGT fup with ABG , remains on high FiO2 , decrease rate to 24 repeat ABG in am R sided PTX, s/p CT placement 06/29, monitor output , decreasing daily CXR , CXR 07/05 - no PTX off PEEP CT surgery follows Venous duplex BLE NGT, on steroids-Hydrocortisone off pressors; on midodrine Echo with pEF 65% s/p abx as per ID recs COVID-19 x3 NGT prior persistent CONS bacteremia Echo no evidence of vegetation however BCX 06/06, 06/14, 06/16, 06/27 NGT per ID recs keep off abx unless febrile or evidence of infection stool OB + prior off Heparin given stool OB + on SCD s/p 3 u PRBC GI procedures on hold given current condition HH stabilized GI prophylaxis creat worsened due to Vanco , now resolved s/p IVF avoid nephrotoxic correct electrolytes as needed fup with further nephro recs continue levothyroxine , TSH within normal limits BS management with LA Levemir and SSI as needed seizure precautions, supportive care case discussed and evaluated by supervising physician Critical Care - Objective Last 24 Hour Vital Signs Date Time Temp Pulse Resp B/P (MAP) Pulse Ox O2 Delivery O2 Flow Rate FiO2 07/05/20 09:00 57 21 124/95 (105) 97 07/05/20 08:00 Mechanical Ventilator Mechanical Ventilator Mechanical Ventilator 07/05/20 08:00 98.7 52 26 133/66 (88) 95 07/05/20 08:00 54 07/05/20 08:00 70 07/05/20 07:05 63 26 60 07/05/20 06:00 55 26 131/62 (85) 96 07/05/20 05:00 57 25 103/61 (75) 97 07/05/20 04:00 70 07/05/20 04:00 Mechanical Ventilator Mechanical Ventilator Mechanical Ventilator 07/05/20 04:00 63 07/05/20 04:00 98.4 62 30 98/58 (71) 96 07/05/20 03:07 60 26 60 07/05/20 03:00 62 23 115/80 (92) 97 07/05/20 02:00 56 20 132/68 (89) 96 07/05/20 01:00 54 20 127/86 (100) 96 07/05/20 00:00 70 07/05/20 00:00 Mechanical Ventilator Mechanical Ventilator Mechanical Ventilator 07/05/20 00:00 55 07/05/20 00:00 98.6 54 23 116/64 (81) 97 07/04/20 23:00 71 20 111/95 (100) 68 07/04/20 22:51 58 26 70 07/04/20 22:00 64 30 103/79 (87) 93 07/04/20 21:00 64 27 108/86 (93) 100 07/04/20 20:00 98.7 64 26 107/63 (78) 95 07/04/20 20:00 70 07/04/20 20:00 Mechanical Ventilator Mechanical Ventilator Mechanical Ventilator Mechanical Ventilator 07/04/20 20:00 62 07/04/20 19:18 61 26 70 07/04/20 19:00 60 26 109/67 (81) 92 07/04/20 18:00 55 26 98/64 (75) 96 07/04/20 17:00 53 29 110/59 (76) 96 07/04/20 16:00 98.5 72 24 101/78 (86) 95 07/04/20 16:00 70 07/04/20 16:00 Mechanical Ventilator Mechanical Ventilator 07/04/20 15:46 64 07/04/20 15:05 62 26 70 07/04/20 15:00 55 27 106/93 (97) 95 07/04/20 14:00 56 28 110/73 (85) 98 07/04/20 13:00 45 26 107/83 (91) 95 07/04/20 12:00 99.0 57 28 138/63 (88) 96 07/04/20 12:00 Mechanical Ventilator Mechanical Ventilator 07/04/20 11:52 46 07/04/20 11:05 47 26 70 07/04/20 11:00 47 26 120/67 (84) 96 Objective: Status: sedated, on Vent AC 500-26- 70% no PEEP Condition: critical HEENT: atraumatic, normocephalic, face with Down features, OP with ET in place, intact Lungs: R sided CT to Hemovac with serosanguineous drainage ( output decreasing), BL crackles, R side also few exp wheezes Abdomen: soft, non-tender, feeding tube Decubiti: +1 edema BLE Accucheck: 180 Critical Care - Subjective ROS Limited/Unobtainable: Yes Interval Events: remains afebrile, no leukocytosis ABG noted this am , on 70% FIO2 CXR this am no evidence of PTX remains bradycardic in high 50 [address] output [address] CT decreasing Condition: critical IV Access: PICC - LUE intact EKG Rhythm: Sinus Bradycardia FI02: 70 Vent Support Breath Rate: 26 Vent Support Mode: AC Vent Tidal Volume: 500 Sputum Amount: Small PEEP: 0.0 PIP: 45 Tube Feeding Amount: 50 I&O: Intake and Output 07/04/20 07/05/20 19:00 07:00 Intake Total 1385.0 ml 1100.0 ml Output Total 685 ml 1115 ml Balance 700.0 ml -15.0 ml IV Total 725.0 ml 250.0 ml Tube Feeding 600 ml 550 ml Other 60 ml 300 ml Output Urine Total 645 ml 1075 ml Chest Tube Drainage Total 40 ml 40 ml # Bowel Movements 2 CXR: 07/05 Endotracheal tube terminates 3.5 cm above the joseph. Left upper extremity PICC line terminates in the superior vena cava. Right-sided chest tube. Pulmonary edema versus multifocal infiltrate/ARDS. Small bilateral pleural effusions. No pneumothorax. Overall, the degree of airspace opacification is similar in appearance to July 04, 2020. Continued follow up recommended. Cardiomegaly. ET-Tube: 7.5 ET Position: 22 Carla Jj NP Jul 05, 2020 10:29
--- NOTE | 2020-07-05 13:00 | NUR ---
NURSE NOTES: Pt resting in bed awake,stable no resp distress presented,RT Chest tube in placed and patent.
--- NOTE | 2020-07-05 13:13 | Internal Med Progress Note ---
Subjective Date of Service: Jul 05, 2020 Physician Name Joni Copeland Attending Physician Elayne Allred MD Current Medications Medications (Trade) Dose Ordered Sig/Katy Route PRN Reason Start Time Stop Time Status Last Admin Dose Admin Acetaminophen (Tylenol) 650 mg Q4H PRN GT For Pain 07/01/20 17:15 07/31/20 17:14 07/01/20 17:23 Chlorhexidine Gluconate (Alla-Hex 2%) 1 applic [email or web address] TOPIC 06/08/20 20:00 09/06/20 19:59 07/04/20 20:31 Clotrimazole (Lotrimin) 1 applic Q12HR TOPIC 06/07/20 13:00 09/05/20 12:59 07/05/20 09:33 Dextrose (Dextrose 50%) 25 ml Q30M PRN IV Hypoglycemia 06/03/20 11:30 08/28/20 11:29 Dextrose (Dextrose 50%) 50 ml Q30M PRN IV Hypoglycemia 06/03/20 11:30 08/28/20 11:29 Hydrocortisone (Solu-CORTEF) 50 mg EVERY 8 HOURS IV 07/03/20 22:00 09/05/20 13:59 07/05/20 13:07 Insulin Aspart (NovoLOG) Q6HR SUBQ 06/26/20 12:00 09/24/20 11:59 07/05/20 13:00 Insulin Detemir (Levemir) 10 units Q12HR SUBQ 06/26/20 10:00 09/24/20 09:59 07/05/20 09:33 Loperamide HCl (Imodium) 2 mg Q6H PRN NG Diarrhea 06/24/20 10:30 07/24/20 10:29 07/01/20 11:41 Midodrine (Pro-Amatine) 10 mg Q8HR GT 06/05/20 14:00 09/03/20 13:59 07/05/20 13:07 Potassium Chloride (K-Dur) 40 meq EVERY 12 HOURS GT 07/04/20 21:00 09/26/20 12:14 07/05/20 09:32 Allergies: Coded Allergies: No Known Allergies (Unverified , 10/16/18) ROS Limited/Unobtainable: Yes Subjective 59 YO F with Down's syndrome admitted with hypoxia. Now sepsis and pneumonia. Cover for Int Nomi Hawk. ICU. Intubated and sedated Objective Last Vital Signs Date Time Temp Pulse Resp B/P (MAP) Pulse Ox O2 Delivery O2 Flow Rate FiO2 07/05/20 12:00 70 07/05/20 12:00 50 21 132/75 (94) 96 07/05/20 08:00 Mechanical Ventilator Mechanical Ventilator Mechanical Ventilator 07/05/20 08:00 98.7 Laboratory Tests Test 07/04/20 17:09 07/04/20 20:29 07/04/20 23:32 07/05/20 03:30 POC Whole Blood Glucose 120 MG/DL (74-106) H Pending 141 MG/DL (74-106) H White Blood Count 6.7 K/UL (4.8-10.8) Red Blood Count 3.00 M/UL (4.20-5.40) L Hemoglobin 9.4 G/DL (12.0-16.0) L Hematocrit 28.3 % (37.0-47.0) L Mean Corpuscular Volume 94 FL (80-99) Mean Corpuscular Hemoglobin 31.4 PG (27.0-31.0) H Mean Corpuscular Hemoglobin Concent 33.3 G/DL (32.0-36.0) Red Cell Distribution Width 16.6 % (11.6-14.8) H Platelet Count 89 K/UL (150-450) L Mean Platelet Volume 9.3 FL (6.5-10.1) Neutrophils (%) (Auto) % (45.0-75.0) Lymphocytes (%) (Auto) % (20.0-45.0) Monocytes (%) (Auto) % (1.0-10.0) Eosinophils (%) (Auto) % (0.0-3.0) Basophils (%) (Auto) % (0.0-2.0) Differential Total Cells Counted 100 Neutrophils % (Manual) 87 % (45-75) H Lymphocytes % (Manual) 9 % (20-45) L Monocytes % (Manual) 4 % (1-10) Eosinophils % (Manual) 0 % (0-3) Basophils % (Manual) 0 % (0-2) Band Neutrophils 0 % (0-8) Platelet Estimate Decreased L Platelet Morphology Normal Hypochromasia 2+ Anisocytosis 1+ Spherocytes 1+ Sodium Level 147 MMOL/L (136-145) H Potassium Level 3.7 MMOL/L (3.5-5.1) Chloride Level 113 MMOL/L (98-107) H Carbon Dioxide Level 30 MMOL/L (21-32) Anion Gap 4 mmol/L (5-15) L Blood Urea Nitrogen 25 mg/dL (7-18) H Creatinine 0.6 MG/DL (0.55-1.30) Estimat Glomerular Filtration Rate > 60 mL/min (>60) Glucose Level 172 MG/DL (74-106) H Calcium Level 7.2 MG/DL (8.5-10.1) L Phosphorus Level 3.3 MG/DL (2.5-4.9) Magnesium Level 2.0 MG/DL (1.8-2.4) Total Bilirubin 0.7 MG/DL (0.2-1.0) Aspartate Amino Transf (AST/SGOT) 23 U/L (15-37) Alanine Aminotransferase (ALT/SGPT) 45 U/L (12-78) Alkaline Phosphatase 54 U/L (46-116) Total Protein 4.3 G/DL (6.4-8.2) L Albumin 1.2 G/DL (3.4-5.0) L Globulin 3.1 g/dL Albumin/Globulin Ratio 0.4 (1.0-2.7) L Test 07/05/20 05:12 07/05/20 07:52 07/05/20 12:58 POC Whole Blood Glucose 180 MG/DL (74-106) H 167 MG/DL (74-106) H Arterial Blood pH 7.514 (7.350-7.450) Arterial Blood Partial Pressure CO2 31.1 mmHg (35.0-45.0) L Arterial Blood Partial Pressure O2 82.0 mmHg (75.0-100.0) Arterial Blood HCO3 24.5 mmol/L (22.0-26.0) Arterial Blood Oxygen Saturation 95.5 % (95-100) Arterial Blood Base Excess 1.9 (-2-2) Jonathan Test Positive Intake and Output 07/04/20 07/05/20 19:00 07:00 Intake Total 1385.0 ml 1100.0 ml Output Total 685 ml 1115 ml Balance 700.0 ml -15.0 ml IV Total 725.0 ml 250.0 ml Tube Feeding 600 ml 550 ml Other 60 ml 300 ml Output Urine Total 645 ml 1075 ml Chest Tube Drainage Total 40 ml 40 ml # Bowel Movements 2 Objective General Appearance: WD/WN, no apparent distress, alert EENT: PERRL/EOMI, normal ENT inspection Neck: non-tender, normal alignment, supple, normal inspection Cardiovascular: normal peripheral pulses, normal rate, regular rhythm, no gallop/murmur, no JVD Respiratory/Chest: Mech vent; decreased breath sounds, crackles/rales, rhonchi - bilaterally, expiratory wheezing Abdomen: normal bowel sounds, non tender, soft, no organomegaly, no mass Extremities: normal range of motion Neurologic: grinding machine tender II-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 Continue amikacin per ID=Dr Camejo. Pulmonary/Critical care=DR Allred. COVID NEG (2) Sepsis Assessment & Plan: Staph haemolyticus. Continue amikacin per ID=Dr Camejo (3) Down's syndrome (4) Dysphagia Assessment & Plan: S/P PEG (5) Seizure disorder Assessment & Plan: Continue keppra and depakote (6) Hypothyroidism Assessment & Plan: Continue synthroid (7) Acute respiratory failure Assessment & Plan: Pulmonary = Dr Allred; [facility] vent Joni Copeland MD Jul 05, 2020 13:13
--- NOTE | 2020-07-05 16:00 | NUR ---
NURSE NOTES: Pt stable ,but HR dip down to LOw 30's when asleep,woke pt up,hr went back up to 50's/min.
--- NOTE | 2020-07-05 18:37 | NUR ---
NURSE NOTES: Pt awake,watching TV cartoon,no distress noted,remains stable.Pt's gown changed again,noted with water seeping around the abdomen,covered with abd pad to keep dry and clean.
--- NOTE | 2020-07-05 19:03 | NUR ---
NURSE HAND-OFF REPORT: Latest Vital Signs: Temperature 98.3 , Pulse 47 , B/P 105 /64 , Respiratory Rate 18 , O2 SAT 95 , Mechanical Ventilator, O2 Flow Rate 15.0 . Vital Sign Comment: stable EKG Rhythm: Sinus Bradycardia Rhythm change?: N Notified?: N Response: No New Orders Received Latest Osorio Fall Score: 70 Fall Risk: High Risk Safety Measures: Call light Within Reach, Bed Alarm Zone 1, Side Rails Side Rails x3, Bed position Low and Locked. Fall Precautions: Yellow Socks Door Sign Patient Fall Education Report given to Hiwot Reynoso RN.
--- NOTE | 2020-07-05 19:20 | NUR ---
NURSE NOTES: received report from esperanza rivera pt orally intubated -vent o2 sat 100% [id number] tube feeding chest tube -marie vac at inter-suction with minimal drinnage reposition and suction
[2020-07-05] MEDS: Dyna-Hex 2% Top Sol 2oz TOPIC SCH (20:42)
--- NOTE | 2020-07-05 21:21 | Cardiology Progress Note ---
Assessment/Plan Assessment/Plan pneumonia, respiratory distress, on vent and intubated for a long time Subjective Subjective The patient is intubated she is looking arounds but does not communicate Objective Last 24 Hour Vital Signs Date Time Temp Pulse Resp B/P (MAP) Pulse Ox O2 Delivery O2 Flow Rate FiO2 07/05/20 19:08 47 24 70 07/05/20 19:00 50 18 105/64 (78) 95 07/05/20 18:00 47 18 105/64 (78) 95 07/05/20 17:00 98.3 45 18 144/68 (93) 94 07/05/20 16:00 45 07/05/20 16:00 45 22 137/68 (91) 95 07/05/20 16:00 Mechanical Ventilator Mechanical Ventilator Mechanical Ventilator 07/05/20 16:00 70 07/05/20 15:05 47 24 60 07/05/20 15:00 41 15 153/82 (105) 95 07/05/20 14:00 46 23 146/79 (101) 97 07/05/20 13:00 53 16 147/95 (112) 94 07/05/20 12:00 70 07/05/20 12:00 Mechanical Ventilator Mechanical Ventilator Mechanical Ventilator 07/05/20 12:00 50 21 132/75 (94) 96 07/05/20 12:00 98.5 07/05/20 12:00 49 07/05/20 11:05 67 25 60 07/05/20 11:00 46 21 119/68 (85) 95 07/05/20 10:00 53 24 118/67 (84) 94 07/05/20 09:00 57 21 124/95 (105) 97 07/05/20 08:00 Mechanical Ventilator Mechanical Ventilator Mechanical Ventilator 07/05/20 08:00 98.7 52 26 133/66 (88) 95 07/05/20 08:00 54 07/05/20 08:00 70 07/05/20 07:05 63 26 60 07/05/20 06:00 55 26 131/62 (85) 96 07/05/20 05:00 57 25 103/61 (75) 97 07/05/20 04:00 70 07/05/20 04:00 Mechanical Ventilator Mechanical Ventilator Mechanical Ventilator 07/05/20 04:00 63 07/05/20 04:00 98.4 62 30 98/58 (71) 96 07/05/20 03:07 60 26 60 07/05/20 03:00 62 23 115/80 (92) 97 07/05/20 02:00 56 20 132/68 (89) 96 07/05/20 01:00 54 20 127/86 (100) 96 07/05/20 00:00 70 07/05/20 00:00 Mechanical Ventilator Mechanical Ventilator Mechanical Ventilator 07/05/20 00:00 55 07/05/20 00:00 98.6 54 23 116/64 (81) 97 07/04/20 23:00 71 20 111/95 (100) 68 07/04/20 22:51 58 26 70 07/04/20 22:00 64 30 103/79 (87) 93 General Appearance: on vent - no communication EENT: PERRL/EOMI Neck: supple Rhythm: SB Cardiovascular: bradycardia Respiratory/Chest: crackles/rales Abdomen: soft Extremities: pitting Intake and Output 07/04/20 07/05/20 19:00 07:00 Intake Total 1385.0 ml 1100.0 ml Output Total 685 ml 1115 ml Balance 700.0 ml -15.0 ml IV Total 725.0 ml 250.0 ml Tube Feeding 600 ml 550 ml Other 60 ml 300 ml Output Urine Total 645 ml 1075 ml Chest Tube Drainage Total 40 ml 40 ml # Bowel Movements 2 Laboratory Tests Test 07/04/20 23:32 07/05/20 03:30 07/05/20 05:12 07/05/20 07:52 POC Whole Blood Glucose 141 MG/DL (74-106) H 180 MG/DL (74-106) H White Blood Count 6.7 K/UL (4.8-10.8) Red Blood Count 3.00 M/UL (4.20-5.40) L Hemoglobin 9.4 G/DL (12.0-16.0) L Hematocrit 28.3 % (37.0-47.0) L Mean Corpuscular Volume 94 FL (80-99) Mean Corpuscular Hemoglobin 31.4 PG (27.0-31.0) H Mean Corpuscular Hemoglobin Concent 33.3 G/DL (32.0-36.0) Red Cell Distribution Width 16.6 % (11.6-14.8) H Platelet Count 89 K/UL (150-450) L Mean Platelet Volume 9.3 FL (6.5-10.1) Neutrophils (%) (Auto) % (45.0-75.0) Lymphocytes (%) (Auto) % (20.0-45.0) Monocytes (%) (Auto) % (1.0-10.0) Eosinophils (%) (Auto) % (0.0-3.0) Basophils (%) (Auto) % (0.0-2.0) Differential Total Cells Counted 100 Neutrophils % (Manual) 87 % (45-75) H Lymphocytes % (Manual) 9 % (20-45) L Monocytes % (Manual) 4 % (1-10) Eosinophils % (Manual) 0 % (0-3) Basophils % (Manual) 0 % (0-2) Band Neutrophils 0 % (0-8) Platelet Estimate Decreased L Platelet Morphology Normal Hypochromasia 2+ Anisocytosis 1+ Spherocytes 1+ Sodium Level 147 MMOL/L (136-145) H Potassium Level 3.7 MMOL/L (3.5-5.1) Chloride Level 113 MMOL/L (98-107) H Carbon Dioxide Level 30 MMOL/L (21-32) Anion Gap 4 mmol/L (5-15) L Blood Urea Nitrogen 25 mg/dL (7-18) H Creatinine 0.6 MG/DL (0.55-1.30) Estimat Glomerular Filtration Rate > 60 mL/min (>60) Glucose Level 172 MG/DL (74-106) H Calcium Level 7.2 MG/DL (8.5-10.1) L Phosphorus Level 3.3 MG/DL (2.5-4.9) Magnesium Level 2.0 MG/DL (1.8-2.4) Total Bilirubin 0.7 MG/DL (0.2-1.0) Aspartate Amino Transf (AST/SGOT) 23 U/L (15-37) Alanine Aminotransferase (ALT/SGPT) 45 U/L (12-78) Alkaline Phosphatase 54 U/L (46-116) Total Protein 4.3 G/DL (6.4-8.2) L Albumin 1.2 G/DL (3.4-5.0) L Globulin 3.1 g/dL Albumin/Globulin Ratio 0.4 (1.0-2.7) L Arterial Blood pH 7.514 (7.350-7.450) Arterial Blood Partial Pressure CO2 31.1 mmHg (35.0-45.0) L Arterial Blood Partial Pressure O2 82.0 mmHg (75.0-100.0) Arterial Blood HCO3 24.5 mmol/L (22.0-26.0) Arterial Blood Oxygen Saturation 95.5 % (95-100) Arterial Blood Base Excess 1.9 (-2-2) Jonathan Test Positive Test 07/05/20 12:58 07/05/20 16:46 07/05/20 20:38 POC Whole Blood Glucose 167 MG/DL (74-106) H 151 MG/DL (74-106) H Pending Lesley Mandel MD Jul 05, 2020 21:21
--- NOTE | 2020-07-05 22:00 | NUR ---
HAND-OFF: Report given to [].
--- NOTE | 2020-07-05 22:00 | NUR ---
NURSE NOTES: REPOSITION AND SUCTION
[2020-07-06] VITALS (24 sets, daily range): BP systolic 94–138; BP diastolic 41–87
[2020-07-06] MEDS: NovoLOG Insulin Flexpen SUBQ SCH ×4 (00:22→17:58)
--- NOTE | 2020-07-06 04:00 | NUR ---
NURSE NOTES: COMPLETE BED ORALCARE DONE REPOSITION AND SUCTION
[2020-07-06 05:23] LABS: HEMATOCRIT 27.6 % (37.0-47.0); HEMOGLOBIN 9.5 G/DL (12.0-16.0); MEAN CORPUSCULAR VOLUME 93 FL (80-99); PLATELET COUNT 115 K/UL (150-450); RED BLOOD COUNT 2.95 M/UL (4.20-5.40); RED CELL DISTRIBUTION WIDTH 16.3 % (11.6-14.8); WHITE BLOOD COUNT 6.7 K/UL (4.8-10.8)
[2020-07-06] MEDS: Midodrine 10mg tab GT SCH (05:41)
[2020-07-06 05:50] LABS: ANION GAP 6 mmol/L (5-15); BLOOD UREA NITROGEN 23 mg/dL (7-18); CALCIUM 7.3 MG/DL (8.5-10.1); CARBON DIOXIDE 30 MMOL/L (21-32); CHLORIDE 113 MMOL/L (98-107); CREATININE 0.6 MG/DL (0.55-1.30); POTASSIUM 3.5 MMOL/L (3.5-5.1); SODIUM 148 MMOL/L (136-145)
--- NOTE | 2020-07-06 06:00 | NUR ---
NURSE NOTES: NURSE NOTES: BS 177 INSULIN COVERAGE GIVEN ORDER
[2020-07-06] MEDS: Hydrocortisone 100mg Inj IV SCH ×3 (06:08→21:49)
--- NOTE | 2020-07-06 06:51 | NUR ---
NURSE NOTES: BS 176 INSULIN COVERAGE GIVEN ORDER
--- NOTE | 2020-07-06 07:24 | NUR ---
NURSE HAND-OFF REPORT: Latest Vital Signs: Temperature 98.0 , Pulse 48 , B/P 94 /74 , Respiratory Rate 23 , O2 SAT 97 , Mechanical Ventilator, O2 Flow Rate 15.0 . Vital Sign Comment: EKG Rhythm: Sinus Bradycardia Rhythm change?: N Notified?: Y Chaparro Oliveros MD Response: No New Orders Received Latest Osorio Fall Score: 70 Fall Risk: High Risk Safety Measures: Call light Within Reach, Bed Alarm Zone 1, Side Rails Side Rails x3, Bed position Low and Locked. Fall Precautions: Yellow Socks Door Sign Patient Fall Education Report given to clinton tellez using sbar .
--- NOTE | 2020-07-06 07:25 | NUR ---
NURSE NOTES: Received patient from Hung Doty RN. Orally intubated, ET size of 7.5, 22 cm in the lip, mechanical ventilator dependent. Ventilator settings of AC 26, Tidal Volume 500, FiO2 of 70%, no PEEP. On continuous GTF of Vital running at 50ml/hour. Left upper arm PICC noted. Gregorio cath inplace with yellow clear urine output noted in drainage bag by gravity. Right lateral chest tube remains in place, connected to low intermittent suction, with serous drainage noted in the pleurovac. Contact isolation observed. Will continue plan of care.
[2020-07-06] MEDS: Levemir Flexpen SUBQ SCH ×2 (08:40→20:56)
--- NOTE | 2020-07-06 09:37 | NUR ---
NURSE NOTES: Dr. Pitt at bedside. With orders noted to discontinue midodrine. And to monitor patient's heart rate.
[2020-07-06 09:53] LABS: ALANINE AMINOTRANSFERASE 41 U/L (12-78); ALBUMIN 1.3 G/DL (3.4-5.0); ALKALINE PHOSPHATASE 53 U/L (46-116); ASPARTATE AMINO TRANSFERASE 20 U/L (15-37); BILIRUBIN,DIRECT 0.2 MG/DL (0.0-0.3); BILIRUBIN,TOTAL 0.6 MG/DL (0.2-1.0); PHOSPHORUS 2.7 MG/DL (2.5-4.9)
--- NOTE | 2020-07-06 10:12 | Pulmonolgy Critical Care Note ---
Critical Care - Asmt/Plan Problems: (1) Acute respiratory failure (2) Pneumothorax (3) Bacteremia (4) Pneumonia (5) Sepsis (6) HCAP (healthcare-associated pneumonia) (7) Seizure disorder (8) Down's syndrome (9) Trisomy 21, Down syndrome Respiratory: monitor respiratory rate, adjust FIO2, CXR Cardiac: continue pressors Renal: F/U I&O, keep IV fluid, check electrolytes Infectious Disease: check cultures, continue antibiotics Gastrointestinal: continue feedings/current rate Endocrine: monitor blood sugar, continue sliding scale insulin Hematologic: monitor H/H, transfuse if hgb<8.5 Neurologic: keep patient comfortable Prophylaxis: Heparin Time Spent (Minutes): 40 Notes Reviewed: cardio, 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 with: nurses, consultants, 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 - Objective Last 24 Hour Vital Signs Date Time Temp Pulse Resp B/P (MAP) Pulse Ox O2 Delivery O2 Flow Rate FiO2 07/06/20 09:00 50 24 121/87 (98) 94 07/06/20 08:03 51 07/06/20 08:00 Mechanical Ventilator Mechanical Ventilator Mechanical Ventilator 07/06/20 08:00 96.5 47 26 109/78 (88) 97 07/06/20 08:00 70 07/06/20 07:33 52 24 70 07/06/20 07:00 48 23 94/74 (81) 97 07/06/20 06:00 48 30 120/76 (91) 98 07/06/20 05:00 50 24 106/74 (85) 96 07/06/20 05:00 50 24 106/74 (85) 96 07/06/20 04:00 56 07/06/20 04:00 98.0 56 31 110/86 (94) 94 07/06/20 04:00 70 07/06/20 04:00 Mechanical Ventilator Mechanical Ventilator Mechanical Ventilator 07/06/20 04:00 56 31 110/86 (94) 94 07/06/20 03:30 55 24 70 07/06/20 03:00 48 29 112/61 (78) 97 07/06/20 03:00 48 29 112/61 (78) 97 07/06/20 02:00 47 23 123/67 (85) 97 07/06/20 02:00 50 24 123/67 (85) 97 07/06/20 01:00 46 23 132/64 (86) 96 07/06/20 01:00 46 23 132/64 (86) 96 07/06/20 00:00 Mechanical Ventilator Mechanical Ventilator Mechanical Ventilator 07/06/20 00:00 41 18 124/67 (86) 95 07/06/20 00:00 70 07/06/20 00:00 40 07/06/20 00:00 97.8 41 18 124/67 (86) 95 07/05/20 23:00 49 25 121/58 (79) 95 07/05/20 22:58 48 25 70 07/05/20 22:00 41 24 89/55 (66) 96 07/05/20 21:00 43 30 123/90 (101) 98 07/05/20 20:00 98.5 50 21 147/68 (94) 95 07/05/20 20:00 Mechanical Ventilator Mechanical Ventilator Mechanical Ventilator 07/05/20 20:00 70 07/05/20 20:00 47 07/05/20 19:08 47 24 70 07/05/20 19:00 50 18 105/64 (78) 95 07/05/20 18:00 47 18 105/64 (78) 95 07/05/20 17:00 98.3 45 18 144/68 (93) 94 07/05/20 16:00 45 07/05/20 16:00 45 22 137/68 (91) 95 07/05/20 16:00 Mechanical Ventilator Mechanical Ventilator Mechanical Ventilator 07/05/20 16:00 70 07/05/20 15:05 47 24 60 07/05/20 15:00 41 15 153/82 (105) 95 07/05/20 14:00 46 23 146/79 (101) 97 07/05/20 13:00 53 16 147/95 (112) 94 07/05/20 12:00 70 07/05/20 12:00 Mechanical Ventilator Mechanical Ventilator Mechanical Ventilator 07/05/20 12:00 50 21 132/75 (94) 96 07/05/20 12:00 98.5 07/05/20 12:00 49 07/05/20 11:05 67 25 60 07/05/20 11:00 46 21 119/68 (85) 95 Status: awake Condition: critical HEENT: atraumatic, normocephalic Neck: full ROM Lungs: clear Heart: HR/BP stable Abdomen: soft, non-tender Extremities: no C/C/E Decubiti: location Accucheck: 202 Critical Care - Subjective FI02: 70 Vent Support Breath Rate: 24 Vent Support Mode: AC Vent Tidal Volume: 500 Sputum Amount: Small PEEP: 0.0 PIP: 38 Tube Feeding Amount: 50 I&O: Intake and Output 07/05/20 07/06/20 19:00 07:00 Intake Total 1140 ml 1000 ml Output Total 1080 ml 1160 ml Balance 60 ml -160 ml Free Water 300 ml 350 ml Tube Feeding 600 ml 600 ml Other 240 ml 50 ml Output Urine Total 1050 ml 1060 ml Chest Tube Drainage Total 30 ml 100 ml # Bowel Movements 3 2 CXR: extensive bilateral infiltrate ET-Tube: 7.5 ET Position: 22 Labs: Laboratory Tests Test 07/05/20 12:58 07/05/20 16:46 07/05/20 20:38 07/06/20 04:00 POC Whole Blood Glucose 167 MG/DL (74-106) H 151 MG/DL (74-106) H Pending White Blood Count 6.7 K/UL (4.8-10.8) Red Blood Count 2.95 M/UL (4.20-5.40) L Hemoglobin 9.5 G/DL (12.0-16.0) L Hematocrit 27.6 % (37.0-47.0) L Mean Corpuscular Volume 93 FL (80-99) Mean Corpuscular Hemoglobin 32.2 PG (27.0-31.0) H Mean Corpuscular Hemoglobin Concent 34.4 G/DL (32.0-36.0) Red Cell Distribution Width 16.3 % (11.6-14.8) H Platelet Count 115 K/UL (150-450) L Mean Platelet Volume 9.5 FL (6.5-10.1) Neutrophils (%) (Auto) % (45.0-75.0) Lymphocytes (%) (Auto) % (20.0-45.0) Monocytes (%) (Auto) % (1.0-10.0) Eosinophils (%) (Auto) % (0.0-3.0) Basophils (%) (Auto) % (0.0-2.0) Sodium Level 148 MMOL/L (136-145) H Potassium Level 3.5 MMOL/L (3.5-5.1) Chloride Level 113 MMOL/L (98-107) H Carbon Dioxide Level 30 MMOL/L (21-32) Anion Gap 6 mmol/L (5-15) Blood Urea Nitrogen 23 mg/dL (7-18) H Creatinine 0.6 MG/DL (0.55-1.30) Estimat Glomerular Filtration Rate > 60 mL/min (>60) Glucose Level 194 MG/DL (74-106) H Calcium Level 7.3 MG/DL (8.5-10.1) L Test 07/06/20 05:34 07/06/20 07:43 07/06/20 09:00 POC Whole Blood Glucose 177 MG/DL (74-106) H Arterial Blood pH 7.524 (7.350-7.450) Arterial Blood Partial Pressure CO2 34.3 mmHg (35.0-45.0) L Arterial Blood Partial Pressure O2 87.2 mmHg (75.0-100.0) Arterial Blood HCO3 27.6 mmol/L (22.0-26.0) H Arterial Blood Oxygen Saturation 96.1 % (95-100) Arterial Blood Base Excess 4.8 (-2-2) H Jonathan Test Positive Phosphorus Level 2.7 MG/DL (2.5-4.9) Magnesium Level 2.0 MG/DL (1.8-2.4) Total Bilirubin 0.6 MG/DL (0.2-1.0) Direct Bilirubin 0.2 MG/DL (0.0-0.3) Aspartate Amino Transf (AST/SGOT) 20 U/L (15-37) Alanine Aminotransferase (ALT/SGPT) 41 U/L (12-78) Alkaline Phosphatase 53 U/L (46-116) Total Protein 4.4 G/DL (6.4-8.2) L Albumin 1.3 G/DL (3.4-5.0) Elayne Hancock MD Jul 06, 2020 10:12
--- NOTE | 2020-07-06 11:00 | NUR ---
NURSE NOTES: Oral care provided. Tolerating current mechanical ventilator settings. Will continue to monitor.
--- NOTE | 2020-07-06 11:56 | Nephrology Progress Note ---
Assessment/Plan Problem List: (1) LEANN (acute kidney injury) (2) Respiratory failure requiring intubation (3) Down's syndrome (4) Seizure disorder (5) Hypothyroidism Assessment Acute renal failure, likely due to hypotension Acute respiratory distress, hypoxia Seizure disorder Hypothyroidism Down syndrome Full code Fluid challenge with IV fluids and albumin Midodrine for BP above 100 systolic Check TSH level Check Correct level Monitor renal parameters Urine studies Per orders Plan July 06: On ventilator. Full code. Heart rate low. Will discontinue Midodrin. Continue to rest. Electrolytes within normal limit. Discussed with RN. July 05: Remains intubated. Full code. No plan for tracheostomy yet. Labs reviewed. All acceptable. Continue same management July 04: Labs reviewed. Discussed with RN. Potassium and phosphorus and magnesium replacement ordered. Hemoglobin 9.5. Patient remains full code. Continue per consultants. July 03: Lab reviewed. Renal parameters stable. Full code. Intubated. Electrolyte abnormalities addressed and replacement done. July 02: Lab reviewed. Renal parameters stable. Full code. Intubated. Has right side chest tube. Continue per consultants. July 01: Lab reviewed. Renal parameters stable. Full code. Has right chest tube. Planning process for tracheostomy. Defer to chest and general surgeon. June 30: Labs reviewed. Renal parameters stable. Remains full code. Remains on ventilator. Due for tracheostomy tomorrow. Continue per consultants. Patient has a right chest tube in place at this time. June 29: Labs reviewed. Electrolyte imbalances addressed and supplemented. Remains full code and on ventilator. Continue to monitor renal parameters. Continue per consultants. June 28: Labs reviewed. Serum potassium again low today. Potassium supplement IV and through GT given. Patient remains full code and is on ventilator. Continue per consultants. Continue to monitor electrolytes and renal parameters. June 27: Labs reviewed. Abnormal electrolyte addressed. Remains full code. Remains vented. June 26: Day 27 of hospitalization. Full code. Labs reviewed. Hemoglobin down to 7.5. Electrolyte abnormalities addressed and corrections ordered. Continue to monitor renal parameters. Continue per consultants. Start on Levemir for blood sugar management. Questioning continuation of hydrocortisone? June 25: Labs reviewed. Potassium, phosphorus, hemoglobin, are all low. Potassium and phosphorus IV replacement given. Continue to monitor electrolytes and CBC. Patient remains full code. June 24: Lab reviewed. Low phosphorus low magnesium and low potassium was addressed. Hemoglobin drifting lower. Continue per consultants. Patient remains full code. June 23: Labs reviewed. Patient continues to be on ventilator. D5W for high sodium and also potassium chloride intravenously as supplement given. Hemoglobin 8.4. Continue to monitor electrolytes and renal parameters. June 22: Labs reviewed. Low potassium and high sodium noted. Hemoglobin 8.1 stable. Aim to correct abnormal electrolyte. Continue rest. Will give 2 boluses of D5W 500 cc. June 21: Lab reviewed. Abnormal electrolytes noted and addressed. June 20: Labs reviewed. Potassium supplement given. Patient remains full code. Continue per consultants. June 19: Lab reviewed. Electrolyte abnormalities addressed. Continue per pulmonary and ID. June 18: Lab reviewed. Status unchanged. Serum sodium 151 unchanged. Stable from renal standpoint of view. June 17: Labs reviewed. Status quo. D5W 500 cc IV ordered. Continue to monitor renal parameters. June 16: Status quo. Labs reviewed. Overall condition unchanged. Patient was transfused and hemoglobin higher. Continue current management. Patient rem ains full code. June 15: Status quo. Overall condition poor. Very low albumin. Edematous. Hypotensive. Hemoglobin lower. Anemia work-up ordered. I favor transfusion 2 units of packed RBCs. Patient remains full code. I favor supportive care only. Will discuss. June 14: Electrolyte abnormalities addressed. Serum creatinine lower. Continue per current management. June 13: Status unchanged. Lab reviewed. Serum potassium 2.7. IV potassium chloride ordered. Serum creatinine low at 1.6 stable. Blood pressure 90s systolic June 12: Status quo. Labs reviewed. Renal parameters stable. Serum creatinine down to 1.6. Medication list reviewed. Continues to be on midodrine. Continue per consultants. June 11: Status quo. Labs reviewed. Electrolytes adjusted. Serum creatinine down to 1.8. Continue per consultants. June 10: Status quo. Labs reviewed. Phosphorus supplement IV given. Serum creatinine 2. Continue per consultants. June 09: Requires less pressors. Albumin bolus given. 1 dose of Lasix IV ordered as the patient severely edematous. Patient serum albumin is very low. Continue per consultants. June 08: Continues to be intubated. Labs reviewed. Serum creatinine 1.9 unchanged. Blood pressure more stable. Off 1 of the pressors. Continue to monitor renal parameters. Continue per consultants. Patient now on hydrocortisone 100 mg every 8 hours. Will decrease IV fluid. Normal saline down to 50 cc an hour. June 07: Intubated. Labs reviewed. Creatinine 1.9 unchanged. Continue same treatment plan. Per consultants. Overall poor prognosis since the patient remains on pressors and her pulmonary status is worsening. June 06: Remains intubated. Labs reviewed. Creatinine 1.9. Blood pressure systolic 90s. Continue per consultants. June 05: Remains intubated. Labs reviewed. Serum creatinine lower to 2. Vancomycin level lower. Remains hypotensive on pressors. Will increase midodrine to 10 mg every 8 hours. Continue per consultants. Continue to monit or renal parameters. June 04: Patient now in ICU. Intubated. On pressors. Labs reviewed. Will increase midodrine. Aim to keep blood pressure over 100 systolic. Will give albumin bolus. Will check vancomycin level which was elevated when checked pr eviously on June 01. Will monitor renal parameters. Continue per consultants. Subjective ROS Limited/Unobtainable: Yes Objective Objective Last 24 Hour Vital Signs Date Time Temp Pulse Resp B/P (MAP) Pulse Ox O2 Delivery O2 Flow Rate FiO2 07/06/20 11:00 51 20 128/85 (99) 97 07/06/20 10:30 49 24 70 07/06/20 10:00 48 22 138/77 (97) 96 07/06/20 09:00 50 24 121/87 (98) 94 07/06/20 08:03 51 07/06/20 08:00 Mechanical Ventilator Mechanical Ventilator Mechanical Ventilator 07/06/20 08:00 96.5 47 26 109/78 (88) 97 07/06/20 08:00 70 07/06/20 07:33 52 24 70 07/06/20 07:00 48 23 94/74 (81) 97 07/06/20 06:00 48 30 120/76 (91) 98 07/06/20 05:00 50 24 106/74 (85) 96 07/06/20 05:00 50 24 106/74 (85) 96 07/06/20 04:00 56 07/06/20 04:00 98.0 56 31 110/86 (94) 94 07/06/20 04:00 70 07/06/20 04:00 Mechanical Ventilator Mechanical Ventilator Mechanical Ventilator 07/06/20 04:00 56 31 110/86 (94) 94 07/06/20 03:30 55 24 70 07/06/20 03:00 48 29 112/61 (78) 97 07/06/20 03:00 48 29 112/61 (78) 97 07/06/20 02:00 47 23 123/67 (85) 97 07/06/20 02:00 50 24 123/67 (85) 97 07/06/20 01:00 46 23 132/64 (86) 96 07/06/20 01:00 46 23 132/64 (86) 96 07/06/20 00:00 Mechanical Ventilator Mechanical Ventilator Mechanical Ventilator 07/06/20 00:00 41 18 124/67 (86) 95 07/06/20 00:00 70 07/06/20 00:00 40 07/06/20 00:00 97.8 41 18 124/67 (86) 95 07/05/20 23:00 49 25 121/58 (79) 95 07/05/20 22:58 48 25 70 07/05/20 22:00 41 24 89/55 (66) 96 07/05/20 21:00 43 30 123/90 (101) 98 07/05/20 20:00 98.5 50 21 147/68 (94) 95 07/05/20 20:00 Mechanical Ventilator Mechanical Ventilator Mechanical Ventilator 07/05/20 20:00 70 07/05/20 20:00 47 07/05/20 19:08 47 24 70 07/05/20 19:00 50 18 105/64 (78) 95 07/05/20 18:00 47 18 105/64 (78) 95 07/05/20 17:00 98.3 45 18 144/68 (93) 94 07/05/20 16:00 45 07/05/20 16:00 45 22 137/68 (91) 95 07/05/20 16:00 Mechanical Ventilator Mechanical Ventilator Mechanical Ventilator 07/05/20 16:00 70 07/05/20 15:05 47 24 60 07/05/20 15:00 41 15 153/82 (105) 95 07/05/20 14:00 46 23 146/79 (101) 97 07/05/20 13:00 53 16 147/95 (112) 94 07/05/20 12:00 70 07/05/20 12:00 Mechanical Ventilator Mechanical Ventilator Mechanical Ventilator 07/05/20 12:00 50 21 132/75 (94) 96 07/05/20 12:00 98.5 07/05/20 12:00 49 Intake and Output 07/05/20 07/06/20 19:00 07:00 Intake Total 1140 ml 1000 ml Output Total 1080 ml 1160 ml Balance 60 ml -160 ml Free Water 300 ml 350 ml Tube Feeding 600 ml 600 ml Other 240 ml 50 ml Output Urine Total 1050 ml 1060 ml Chest Tube Drainage Total 30 ml 100 ml # Bowel Movements 3 2 Laboratory Tests 07/05/20 12:58: POC Whole Blood Glucose 167H 07/05/20 16:46: POC Whole Blood Glucose 151H 07/05/20 20:38: POC Whole Blood Glucose [Pending] 07/06/20 04:00: White Blood Count 6.7, Red Blood Count 2.95L, Hemoglobin 9.5L, Hematocrit 27.6L, Mean Corpuscular Volume 93, Mean Corpuscular Hemoglobin 32.2H, Mean Corpuscular Hemoglobin Concent 34.4, Red Cell Distribution Width 16.3H, Platelet Count 115L , Mean Platelet Volume 9.5, Neutrophils (%) (Auto) , Lymphocytes (%) (Auto) , Monocytes (%) (Auto) , Eosinophils (%) (Auto) , Basophils (%) (Auto) , Sodium Level 148H, Potassium Level 3.5, Chloride Level 113H, Carbon Dioxide Level 30, Anion Gap 6, Blood Urea Nitrogen 23H, Creatinine 0.6, Estimat Glomerular Filtration Rate > 60, Glucose Level 194H, Calcium Level 7.3L 07/06/20 05:34: POC Whole Blood Glucose 177H 07/06/20 07:43: Arterial Blood pH 7.524H, Arterial Blood Partial Pressure CO2 34.3L, Arterial Blood Partial Pressure O2 87.2, Arterial Blood HCO3 27.6H, Arterial Blood Oxygen Saturation 96.1, Arterial Blood Base Excess 4.8H, Jonathan Test Positive 07/06/20 09:00: Phosphorus Level 2.7, Magnesium Level 2.0, Total Bilirubin 0.6, Direct Bilirubin 0.2, Aspartate Amino Transf (AST/SGOT) 20, Alanine Aminotransferase (ALT/SGPT) 41, Alkaline Phosphatase 53, Total Protein 4.4L, Albumin 1.3L Height (Feet): 5 Height (Inches): 3.00 Weight (Pounds): 172 General Appearance: no apparent distress EENT: other - On ventilator Cardiovascular: bradycardia Respiratory/Chest: decreased breath sounds Abdomen: distended Keron Pitt MD Jul 06, 2020 11:56
--- NOTE | 2020-07-06 11:57 | Infectious Diseases Prog Note ---
Assessment/Plan ASSESSMENT: sp code blue 06/03 Septic Shock; SP Fever, recurrent- low grade Leukocytosis; persistent/fluctuating, SP -06/27 Bcx NTD -06/17 u/a no pyuria -06/16 Bcx NTD (Picc line) -06/14 Bcx NTD ucx Neg sp cx C. parapsilopsis -06/03 u/a no pyuria Pneumonia.- COVID 19 neg x3 Acute hypoxic resp failure on VM> NRB 15l 100%; hypoxic on ABG> now VDRF 06/03- Fio2 80% >100% 06/05> 60% 06/09 >80% 06/10 >95% 06/18 >90% 06/22 >60% 06/23 R tension Pneumothroax sp CT 06/29 -06/30 CXR: Interim complete reexpansion of right lung without evidence of residual pneumothorax. Bilateral diffuse and extensive infiltrates. Markedly improved chest wall subcutaneous emphysema -06/29 CXR: Interim reexpansion of previously demonstrated right pneumothorax, status post large bore chest tube placement. -06/22 CXR: Improved aeration of both lungs. -06/13 CXR:Small bilateral pleural effusions with minor edema. Stable edema with mild worsening in the degree of pleural effusion on the right. -06/09 sp cx Neg 06/08 CXR: Extensive bilateral interstitial and airspace disease appears similar to the prior exam. Moderate to large bilateral pleural effusions appear unchanged. 06/05 CXR: Increasing left upper lobe dense consolidation and likely increasing bilateral pleural fluid. Persistent diffuse dense consolidation el sewhere -06/03 sp cx normal resp marie -06/02 CXR: Increased atelectasis of the right lung, since prior e xam of 3 days earlier. New or increased right pleural effusion. Increased left basilar consolidation and/or pleural fluid -COVID Rapid PCR neg 05/31, 05/31, 06/03 -05/30 spc x Group G strep -05/30 CXR: Reduced lung volumes. Patchy bilateral predominantly interstitial pulmonary opacities. Could be from edema and/or pneumonia. There is a broader differential. -legionella ag urine, blasto ab, Histo ab, HIV ab screen, FRANCIS, ANCA neg Persistent, high grade bacteremia- -05/30 Bcx 4/4 sets S. haemolyticus; 05/31 Bcx 3/4 S/ epi; 06/04 Bcx 1.4 S. warnerri; 06/06 Bcx Neg -2d echo: no vegetaions seen ua/ wbc 10-15, nit neg, leuk +1; ucx Neg LEANN; -supratherapeutic vanco levels -Seizure disorder. - Hypothyroidism. - Down syndrome. History of PEG tube placement. ID resident PLAN: Monitor off abx 06/22 SP Meropenem #18, IV AMikacin #7 06/12/20 SP Daptomycin #11 06/10 SP MIcafungin #7, Linezolid #5 06/05 SP Azithromycin #7/7 06/03 SP Ceftriaxone #2 06/02 SP IV Vancomycin #4, Zosyn #4 05/30 SP Cefepime x1, Flagyl x1 - Monitor CBC, BMP. .f/u cx - COVID neg x3 - Monitor chest x-ray. - Monitor the patient's clinical course and labs. Based on those, we will do further recommendation. -f/u Fungitell, asp ag, flow cytometry -poor prognosis Thank you, Dr. Allred, for allowing me to participate in the care of this patient. I will follow the patient with you at this hospitalization. Discussed with RN Subjective Allergies: Coded Allergies: No Known Allergies (Unverified , 10/16/18) Afebrile On Vent 70% O2 No leukocytosis Objective Last 24 Hour Vital Signs Date Time Temp Pulse Resp B/P (MAP) Pulse Ox O2 Delivery O2 Flow Rate FiO2 07/06/20 11:00 51 20 128/85 (99) 97 07/06/20 10:30 49 24 70 07/06/20 10:00 48 22 138/77 (97) 96 07/06/20 09:00 50 24 121/87 (98) 94 07/06/20 08:03 51 07/06/20 08:00 Mechanical Ventilator Mechanical Ventilator Mechanical Ventilator 07/06/20 08:00 96.5 47 26 109/78 (88) 97 07/06/20 08:00 70 07/06/20 07:33 52 24 70 07/06/20 07:00 48 23 94/74 (81) 97 07/06/20 06:00 48 30 120/76 (91) 98 07/06/20 05:00 50 24 106/74 (85) 96 07/06/20 05:00 50 24 106/74 (85) 96 07/06/20 04:00 56 07/06/20 04:00 98.0 56 31 110/86 (94) 94 07/06/20 04:00 70 07/06/20 04:00 Mechanical Ventilator Mechanical Ventilator Mechanical Ventilator 07/06/20 04:00 56 31 110/86 (94) 94 07/06/20 03:30 55 24 70 07/06/20 03:00 48 29 112/61 (78) 97 07/06/20 03:00 48 29 112/61 (78) 97 07/06/20 02:00 47 23 123/67 (85) 97 07/06/20 02:00 50 24 123/67 (85) 97 07/06/20 01:00 46 23 132/64 (86) 96 07/06/20 01:00 46 23 132/64 (86) 96 07/06/20 00:00 Mechanical Ventilator Mechanical Ventilator Mechanical Ventilator 07/06/20 00:00 41 18 124/67 (86) 95 07/06/20 00:00 70 07/06/20 00:00 40 07/06/20 00:00 97.8 41 18 124/67 (86) 95 07/05/20 23:00 49 25 121/58 (79) 95 07/05/20 22:58 48 25 70 07/05/20 22:00 41 24 89/55 (66) 96 07/05/20 21:00 43 30 123/90 (101) 98 07/05/20 20:00 98.5 50 21 147/68 (94) 95 07/05/20 20:00 Mechanical Ventilator Mechanical Ventilator Mechanical Ventilator 07/05/20 20:00 70 07/05/20 20:00 47 07/05/20 19:08 47 24 70 07/05/20 19:00 50 18 105/64 (78) 95 07/05/20 18:00 47 18 105/64 (78) 95 07/05/20 17:00 98.3 45 18 144/68 (93) 94 07/05/20 16:00 45 07/05/20 16:00 45 22 137/68 (91) 95 07/05/20 16:00 Mechanical Ventilator Mechanical Ventilator Mechanical Ventilator 07/05/20 16:00 70 07/05/20 15:05 47 24 60 9/27/20 15:00 41 15 153/82 (105) 95 07/05/20 14:00 46 23 146/79 (101) 97 07/05/20 13:00 53 16 147/95 (112) 94 07/05/20 12:00 70 07/05/20 12:00 Mechanical Ventilator Mechanical Ventilator Mechanical Ventilator 07/05/20 12:00 50 21 132/75 (94) 96 07/05/20 12:00 98.5 07/05/20 12:00 49 Height (Feet): 5 Height (Inches): 3.00 Weight (Pounds): 172 GEN: NAD on Vent 70% O2 HEENT: NCAT, Intubated, Pulm: Equal chest rise and fall B/L, No accessory muscle use ABD: Soft, ND SKIN: Exposed skin with no rash, Normal in color Laboratory Tests Test 07/05/20 12:58 07/05/20 16:46 07/05/20 20:38 07/06/20 04:00 POC Whole Blood Glucose 167 MG/DL (74-106) H 151 MG/DL (74-106) H Pending White Blood Count 6.7 K/UL (4.8-10.8) Red Blood Count 2.95 M/UL (4.20-5.40) L Hemoglobin 9.5 G/DL (12.0-16.0) L Hematocrit 27.6 % (37.0-47.0) L Mean Corpuscular Volume 93 FL (80-99) Mean Corpuscular Hemoglobin 32.2 PG (27.0-31.0) H Mean Corpuscular Hemoglobin Concent 34.4 G/DL (32.0-36.0) Red Cell Distribution Width 16.3 % (11.6-14.8) H Platelet Count 115 K/UL (150-450) L Mean Platelet Volume 9.5 FL (6.5-10.1) Neutrophils (%) (Auto) % (45.0-75.0) Lymphocytes (%) (Auto) % (20.0-45.0) Monocytes (%) (Auto) % (1.0-10.0) Eosinophils (%) (Auto) % (0.0-3.0) Basophils (%) (Auto) % (0.0-2.0) Sodium Level 148 MMOL/L (136-145) H Potassium Level 3.5 MMOL/L (3.5-5.1) Chloride Level 113 MMOL/L (98-107) H Carbon Dioxide Level 30 MMOL/L (21-32) Anion Gap 6 mmol/L (5-15) Blood Urea Nitrogen 23 mg/dL (7-18) H Creatinine 0.6 MG/DL (0.55-1.30) Estimat Glomerular Filtration Rate > 60 mL/min (>60) Glucose Level 194 MG/DL (74-106) H Calcium Level 7.3 MG/DL (8.5-10.1) L Test 07/06/20 05:34 07/06/20 07:43 07/06/20 09:00 POC Whole Blood Glucose 177 MG/DL (74-106) H Arterial Blood pH 7.524 (7.350-7.450) Arterial Blood Partial Pressure CO2 34.3 mmHg (35.0-45.0) L Arterial Blood Partial Pressure O2 87.2 mmHg (75.0-100.0) Arterial Blood HCO3 27.6 mmol/L (22.0-26.0) H Arterial Blood Oxygen Saturation 96.1 % (95-100) Arterial Blood Base Excess 4.8 (-2-2) H Jonathan Test Positive Phosphorus Level 2.7 MG/DL (2.5-4.9) Magnesium Level 2.0 MG/DL (1.8-2.4) Total Bilirubin 0.6 MG/DL (0.2-1.0) Direct Bilirubin 0.2 MG/DL (0.0-0.3) Aspartate Amino Transf (AST/SGOT) 20 U/L (15-37) Alanine Aminotransferase (ALT/SGPT) 41 U/L (12-78) Alkaline Phosphatase 53 U/L (46-116) Total Protein 4.4 G/DL (6.4-8.2) L Albumin 1.3 G/DL (3.4-5.0) L Current Medications Medications (Trade) Dose Ordered Sig/Katy Route PRN Reason Start Time Stop Time Status Last Admin Dose Admin Acetaminophen (Tylenol) 650 mg Q4H PRN GT For Pain 07/01/20 17:15 07/31/20 17:14 07/01/20 17:23 Chlorhexidine Gluconate (Alla-Hex 2%) 1 applic DAILY@1999 TOPIC 06/08/20 20:00 09/06/20 19:59 07/05/20 20:42 Clotrimazole (Lotrimin) 1 applic Q12HR TOPIC 06/07/20 13:00 09/05/20 12:59 07/06/20 08:38 Dextrose (Dextrose 50%) 25 ml Q30M PRN IV Hypoglycemia 06/03/20 11:30 08/28/20 11:29 Dextrose (Dextrose 50%) 50 ml Q30M PRN IV Hypoglycemia 06/03/20 11:30 08/28/20 11:29 Hydrocortisone (Solu-CORTEF) 50 mg EVERY 8 HOURS IV 07/06/20 06:00 10/04/20 05:59 07/06/20 06:08 Insulin Aspart (NovoLOG) Q6HR SUBQ 06/26/20 12:00 09/24/20 11:59 07/06/20 05:43 Insulin Detemir (Levemir) 10 units Q12HR SUBQ 06/26/20 10:00 09/24/20 09:59 07/06/20 08:40 Loperamide HCl (Imodium) 2 mg Q6H PRN NG Diarrhea 06/24/20 10:30 07/24/20 10:29 07/01/20 11:41 Potassium Chloride (K-Dur) 40 meq EVERY 12 HOURS GT 07/04/20 21:00 09/26/20 12:14 07/06/20 08:39 Chencho Corley MD Jul 06, 2020 11:57
--- NOTE | 2020-07-06 13:00 | NUR ---
NURSE NOTES: No signs and symptoms of hypoglycemia. Tolerating GT feeding. No residuals noted.
[2020-07-06] MEDS: Acetaminophen 650mg/20.3ml GT PRN (13:04)
--- NOTE | 2020-07-06 14:07 | Diagnostic Imaging Report ---
Indication: Shortness of breath Technique: One view of the chest Comparison: 07/05/2020 Findings: Right chest tube remains. There is a tiny sliver of a pneumothorax in the right lung apex. Stable satisfactory position of endotracheal tube and left arm PICC. Diffuse bilateral interstitial and airspace infiltrates are unchanged Impression: There is a sliver of a right apical pneumothorax, but adequate chest tube position. Recommend further monitoring. Otherwise unchanged over one day
--- NOTE | 2020-07-06 15:00 | NUR ---
NURSE NOTES: Bed bath provided. Right lateral chest tube remains inplace. Dressing changed.
--- NOTE | 2020-07-06 17:00 | NUR ---
NURSE NOTES: No signs and symptoms of hypoglycemia.
--- NOTE | 2020-07-06 17:48 | NUR ---
CASE MANAGEMENT: REVIEW 07/06/2020 SI;SEPSIS. PNA. 96.5 47 26 109/78 97% ON MECH VENT FIO2 70 H/H 9.5/27.6 PLT 115 PLT 148 BUN 23 BG 194 CA+ 7.3 ALB 1.3 IS:K-DUR GT BID DOPAMINE IV PER PARAMETERS LEVOPHED IV PER PARAMETERS SOLU CORTEF IV Q8HR MIDODRINE GT Q8HR LEVEMIR SQ BID CHEST X-RAY- There is a sliver of a right apical pneumothorax, but adequate chest tube position. Recommend further monitoring. Otherwise unchanged over one day ICU PLAN OF CARE: MAINTAIN CHEST TUBE
--- NOTE | 2020-07-06 18:30 | NUR ---
NURSE NOTES: Protonix 40mg IV every 12 hrs order obtained from Dr. Allred.
[2020-07-06] MEDS ORDERED: NS 275ml ONE (18:50)
--- NOTE | 2020-07-06 19:08 | NUR ---
NURSE HAND-OFF REPORT: Latest Vital Signs: Temperature 98.6 , Pulse 49 , B/P 123 /73 , Respiratory Rate 22 , O2 SAT 98 , Mechanical Ventilator, O2 Flow Rate 15.0 . Vital Sign Comment: With right lateral chest tube connected to low intermittent suction. EKG Rhythm: Sinus Bradycardia Rhythm change?: N Latest Osorio Fall Score: 70 Fall Risk: High Risk Safety Measures: Call light Within Reach, Bed Alarm Zone 1, Side Rails Side Rails x3, Bed position Low and Locked. Fall Precautions: Yellow Socks Door Sign Patient Fall Education Contact isolation observed. Report given to Hung Doty RN
--- NOTE | 2020-07-06 19:13 | NUR ---
RESPIRATORY NOTE: Received Pt on AC 24, 500VT, 70%, no PEEP. Pt is intubated 7.5 @ 22cm lipline, secured by anchorfast. Pt awake/disoriented. B/S sissy. rhonchi, sxn small amounts of thick, newman-yellow secretions. Vent plugged into red outlet, [place]ub[place] at bedside. Pt in no apparent distress at this time. Will continue to monitor pt.
--- NOTE | 2020-07-06 19:19 | Internal Med Progress Note ---
Subjective Date of Service: Jul 06, 2020 Physician Name DinorahJoni Attending Physician Elayne Allred MD Current Medications Medications (Trade) Dose Ordered Sig/Katy Route PRN Reason Start Time Stop Time Status Last Admin Dose Admin Acetaminophen (Tylenol) 650 mg Q4H PRN GT For Pain 07/01/20 17:15 07/31/20 17:14 07/06/20 13:04 Chlorhexidine Gluconate (Alla-Hex 2%) 1 applic DAILY@1999 TOPIC 06/08/20 20:00 09/06/20 19:59 07/05/20 20:42 Clotrimazole (Lotrimin) 1 applic Q12HR TOPIC 06/07/20 13:00 09/05/20 12:59 07/06/20 08:38 Dextrose (Dextrose 50%) 25 ml Q30M PRN IV Hypoglycemia 06/03/20 11:30 08/28/20 11:29 Dextrose (Dextrose 50%) 50 ml Q30M PRN IV Hypoglycemia 06/03/20 11:30 08/28/20 11:29 Hydrocortisone (Solu-CORTEF) 50 mg EVERY 8 HOURS IV 07/06/20 06:00 10/04/20 05:59 07/06/20 13:04 Insulin Aspart (NovoLOG) Q6HR SUBQ 06/26/20 12:00 09/24/20 11:59 07/06/20 13:06 Insulin Detemir (Levemir) 10 units Q12HR SUBQ 06/26/20 10:00 09/24/20 09:59 07/06/20 08:40 Loperamide HCl (Imodium) 2 mg Q6H PRN NG Diarrhea 06/24/20 10:30 07/24/20 10:29 07/01/20 11:41 Pantoprazole (Protonix) 40 mg EVERY 12 HOURS IVP 07/06/20 21:00 08/05/20 20:59 Potassium Chloride (K-Dur) 40 meq EVERY 12 HOURS GT 07/04/20 21:00 09/26/20 12:14 07/06/20 08:39 Allergies: Coded Allergies: No Known Allergies (Unverified , 10/16/18) ROS Limited/Unobtainable: Yes Subjective 59 YO F with Down's syndrome admitted with hypoxia. Now sepsis and pneumonia. Cover for Int Med-DR Hawk. ICU. Intubated and sedated Objective Last Vital Signs Date Time Temp Pulse Resp B/P (MAP) Pulse Ox O2 Delivery O2 Flow Rate FiO2 07/06/20 19:10 50 24 70 07/06/20 19:00 123/73 (90) 98 07/06/20 16:00 Mechanical Ventilator Mechanical Ventilator Mechanical Ventilator 07/06/20 16:00 98.6 Laboratory Tests Test 07/05/20 20:38 07/06/20 04:00 07/06/20 05:34 07/06/20 07:43 POC Whole Blood Glucose Pending 177 MG/DL (74-106) H White Blood Count 6.7 K/UL (4.8-10.8) Red Blood Count 2.95 M/UL (4.20-5.40) L Hemoglobin 9.5 G/DL (12.0-16.0) L Hematocrit 27.6 % (37.0-47.0) L Mean Corpuscular Volume 93 FL (80-99) Mean Corpuscular Hemoglobin 32.2 PG (27.0-31.0) H Mean Corpuscular Hemoglobin Concent 34.4 G/DL (32.0-36.0) Red Cell Distribution Width 16.3 % (11.6-14.8) H Platelet Count 115 K/UL (150-450) L Mean Platelet Volume 9.5 FL (6.5-10.1) Neutrophils (%) (Auto) % (45.0-75.0) Lymphocytes (%) (Auto) % (20.0-45.0) Monocytes (%) (Auto) % (1.0-10.0) Eosinophils (%) (Auto) % (0.0-3.0) Basophils (%) (Auto) % (0.0-2.0) Sodium Level 148 MMOL/L (136-145) H Potassium Level 3.5 MMOL/L (3.5-5.1) Chloride Level 113 MMOL/L (98-107) H Carbon Dioxide Level 30 MMOL/L (21-32) Anion Gap 6 mmol/L (5-15) Blood Urea Nitrogen 23 mg/dL (7-18) H Creatinine 0.6 MG/DL (0.55-1.30) Estimat Glomerular Filtration Rate > 60 mL/min (>60) Glucose Level 194 MG/DL (74-106) H Calcium Level 7.3 MG/DL (8.5-10.1) L Arterial Blood pH 7.524 (7.350-7.450) Arterial Blood Partial Pressure CO2 34.3 mmHg (35.0-45.0) L Arterial Blood Partial Pressure O2 87.2 mmHg (75.0-100.0) Arterial Blood HCO3 27.6 mmol/L (22.0-26.0) H Arterial Blood Oxygen Saturation 96.1 % (95-100) Arterial Blood Base Excess 4.8 (-2-2) H Jonathan Test Positive Test 07/06/20 09:00 Phosphorus Level 2.7 MG/DL (2.5-4.9) Magnesium Level 2.0 MG/DL (1.8-2.4) Total Bilirubin 0.6 MG/DL (0.2-1.0) Direct Bilirubin 0.2 MG/DL (0.0-0.3) Aspartate Amino Transf (AST/SGOT) 20 U/L (15-37) Alanine Aminotransferase (ALT/SGPT) 41 U/L (12-78) Alkaline Phosphatase 53 U/L (46-116) Total Protein 4.4 G/DL (6.4-8.2) L Albumin 1.3 G/DL (3.4-5.0) L Intake and Output 07/05/20 07/06/20 19:00 07:00 Intake Total 1140 ml 1000 ml Output Total 1080 ml 1160 ml Balance 60 ml -160 ml Free Water 300 ml 350 ml Tube Feeding 600 ml 600 ml Other 240 ml 50 ml Output Urine Total 1050 ml 1060 ml Chest Tube Drainage Total 30 ml 100 ml # Bowel Movements 3 2 Objective General Appearance: WD/WN, no apparent distress, alert EENT: PERRL/EOMI, normal ENT inspection Neck: non-tender, normal alignment, supple, normal inspection Cardiovascular: normal peripheral pulses, normal rate, regular rhythm, no gallop/murmur, no JVD Respiratory/Chest: Mech vent; decreased breath sounds, crackles/rales, rhonchi - bilaterally, expiratory wheezing Abdomen: normal bowel sounds, non tender, soft, no organomegaly, no mass Extremities: normal range of motion 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 S/P amikacin per ID=Dr Camejo. Pulmonary/Critical care=DR Allred. COVID NEG (2) Sepsis Assessment & Plan: Staph haemolyticus. S/P amikacin per ID=Dr Camejo (3) Down's syndrome (4) Dysphagia Assessment & Plan: S/P PEG (5) Seizure disorder Assessment & Plan: Continue keppra and depakote (6) Hypothyroidism Assessment & Plan: Continue synthroid (7) Acute respiratory failure Assessment & Plan: Pulmonary = Dr Allred; [facility] Joni Ovalle MD Jul 06, 2020 19:19
--- NOTE | 2020-07-06 19:29 | NUR ---
NURSE NOTES: received report from clinton rn pt orally intubated -vent o2 sat 100% open eyes to touch moving left upper hand chest -tube marie vac- intret suction with serous drainage reposition and suction
[2020-07-06] MEDS: Dyna-Hex 2% Top Sol 2oz TOPIC SCH (20:51)
[2020-07-06] MEDS: Pantoprazole Inj IVP SCH (20:53)
--- NOTE | 2020-07-06 22:00 | NUR ---
NURSE NOTES: reposition and suction
[2020-07-07] VITALS (24 sets, daily range): BP systolic 87–133; BP diastolic 48–89
--- NOTE | 2020-07-07 | NUR ---
NURSE NOTES: bs 155 insulin coverage given as order
[2020-07-07] MEDS: NovoLOG Insulin Flexpen SUBQ SCH ×5 (00:05→23:35)
--- NOTE | 2020-07-07 02:00 | NUR ---
NURSE NOTES:condition un change
--- NOTE | 2020-07-07 04:00 | NUR ---
NURSE NOTES: COMPLETE BED BATH
[2020-07-07 05:36] LABS: BASOPHILS % (AUTO) 0.5 % (0.0-2.0); EOSINOPHILS % (AUTO) 0.3 % (0.0-3.0); HEMATOCRIT 26.3 % (37.0-47.0); HEMOGLOBIN 8.8 G/DL (12.0-16.0); LYMPHOCYTES % (AUTO) 13.4 % (20.0-45.0); MEAN CORPUSCULAR VOLUME 94 FL (80-99); MONOCYTES % (AUTO) 8.1 % (1.0-10.0); NEUTROPHILS % (AUTO) 77.8 % (45.0-75.0); PLATELET COUNT 104 K/UL (150-450); RED CELL DISTRIBUTION WIDTH 16.7 % (11.6-14.8)
[2020-07-07] MEDS: Hydrocortisone 100mg Inj IV SCH ×3 (05:50→22:13)
--- NOTE | 2020-07-07 05:50 | NUR ---
NURSE NOTES: Given Solu Cortef 50mg IV as ordered. Solu Cortef vial was 100mg and 50mg was wasted. But accidently entered waste medication 2 times on the Pyxis. Will inform to pharmacy in the morning.
--- NOTE | 2020-07-07 06:00 | NUR ---
NURSE NOTES: BS 158 INSULIN COVERAGE ORDER
[2020-07-07 06:17] LABS: ALANINE AMINOTRANSFERASE 30 U/L (12-78); ALBUMIN 1.2 G/DL (3.4-5.0); ALBUMIN/GLOBULIN RATIO 0.4 (1.0-2.7); ALKALINE PHOSPHATASE 52 U/L (46-116); ANION GAP 7 mmol/L (5-15); ASPARTATE AMINO TRANSFERASE 22 U/L (15-37); BILIRUBIN,TOTAL 0.6 MG/DL (0.2-1.0); BLOOD UREA NITROGEN 22 mg/dL (7-18); CALCIUM 7.1 MG/DL (8.5-10.1); CARBON DIOXIDE 27 MMOL/L (21-32); CHLORIDE 112 MMOL/L (98-107); CREATININE 0.6 MG/DL (0.55-1.30); POTASSIUM 3.1 MMOL/L (3.5-5.1); SODIUM 146 MMOL/L (136-145)
--- NOTE | 2020-07-07 07:08 | NUR ---
NURSE HAND-OFF REPORT: Latest Vital Signs: Temperature 98.4 , Pulse 41 , B/P 116 /61 , Respiratory Rate 26 , O2 SAT 99 , Mechanical Ventilator, O2 Flow Rate 15.0 . Vital Sign Comment: EKG Rhythm: Sinus Bradycardia Rhythm change?: N Response: No New Orders Received Latest Osorio Fall Score: 70 Fall Risk: High Risk Safety Measures: Call light Within Reach, Bed Alarm Zone 1, Side Rails Side Rails x3, Bed position Low and Locked. Fall Precautions: Yellow Socks Door Sign Patient Fall Education Report given to RUPA CAMPOS.
--- NOTE | 2020-07-07 07:09 | NUR ---
NURSE NOTES: Received patient from Hung Doty RN. Orally intubated, ET size of 7.5, 22 cm in the lip, mechanical ventilator dependent. Ventilator settings of AC 26, Tidal Volume 500, FiO2 of 70%, no PEEP. On continuous GTF of Vital running at 50ml/hour. Patient asleep. Remains Sinus Blair in the monitor, heart rate of 41. Left upper arm PICC noted. Gregorio cath inplace with yellow clear urine output noted in drainage bag by gravity. Right lateral chest tube remains in place, connected to low intermittent suction, with serous drainage noted in the pleurovac. Contact isolation observed. Will continue plan of care.
--- NOTE | 2020-07-07 07:47 | NUR ---
RD ASSESSMENT & RECOMMENDATIONS SEE CARE ACTIVITY FOR COMPLETE ASSESSMENT DAILY ESTIMATED NEEDS: Needs based on CRITICAL CARE, 50kg 22-28 kcals/kg 8490-4862 total kcals 1.25-2 g protein/kg 63-100 g total protein 25-30 mL/kg 9456-9021 total fluid mLs NUTRITION DIAGNOSIS: Swallowing difficulty r/t dysphagia as evdienced by pt w/ Downs Syndrome, PEG dep for all nutritional needs, now intubated, now off pressor support, ICU status. CURRENT TF:Vital AF 1.2 @ 50ml/hr 24 hrs ENTERAL NUTRITION RECOMMENDATIONS: VITAL AF 1.2 @ 45ml/hr x 24 hrs to provide 1080ml, 1296kcal, 81g prot, 876ml free water - Maintain Vital AF for carb control, critical care, elemental feeds for diarrhea - For continuous TF of x 24 hrs (off Synthroid at this time), rec goal rate of 45ml/hr x 24 hrs -> will meet 100% est kcal/prot needs ----- If Synthroid is re-added to medlist, recommend: VITAL AF 1.2 @ 50ml/hr x22 hrs to provide 1100ml, 1320 kcal, 83g pro, 892ml free H2O (hold TF 1 hr before and after Synthroid) ADDITIONAL RECOMMENDATIONS: 1) Ht of 61 inches per SNF; recalibrate bed scale for accurate CBW 2) Add NISS: BGs now in the 200's, on Solucortef-> NOW ON NISS + LEVEMIR 3) Monitor hemodynamic stability: pressors held at this time 4) Wound healing: add Vit C 250mg QD + continue [place] BID 5) Monitor lytes, replete as needed (low K) . .
[2020-07-07] MEDS: Pantoprazole Inj IVP SCH ×2 (08:56→20:35)
[2020-07-07] MEDS: Levemir Flexpen SUBQ SCH ×2 (08:59→20:36)
--- NOTE | 2020-07-07 09:00 | NUR ---
NURSE NOTES: Dr. Pitt at bedside, aware of today's lab results. 20meq Potassium IV x 1 currently infusing.
[2020-07-07] MEDS ORDERED: NS 275ml ONE (10:10)
[2020-07-07] MEDS ORDERED: Sterile Water Irrig 1000ml IRRIG ONE (10:10)
--- NOTE | 2020-07-07 11:45 | General Progress Note ---
Subjective ROS Limited/Unobtainable: No Allergies: Coded Allergies: No Known Allergies (Unverified , 10/16/18) Objective Last 24 Hour Vital Signs Date Time Temp Pulse Resp B/P (MAP) Pulse Ox O2 Delivery O2 Flow Rate FiO2 07/07/20 11:17 60 07/07/20 11:16 59 24 70 07/07/20 11:00 55 24 104/59 (74) 99 07/07/20 10:00 54 25 101/56 (71) 99 07/07/20 09:00 54 22 93/58 (70) 98 07/07/20 08:00 98.3 61 24 118/89 (99) 100 07/07/20 08:00 Mechanical Ventilator Mechanical Ventilator Mechanical Ventilator 07/07/20 08:00 70 07/07/20 07:57 60 24 70 07/07/20 07:41 42 07/07/20 07:00 39 24 111/60 (77) 99 07/07/20 06:00 41 26 116/61 (79) 99 07/07/20 05:00 45 30 96/48 (64) 97 07/07/20 04:00 45 07/07/20 04:00 98.4 57 30 117/52 (73) 97 07/07/20 04:00 70 07/07/20 04:00 Mechanical Ventilator Mechanical Ventilator Mechanical Ventilator 07/07/20 03:32 60 24 70 07/07/20 03:00 61 26 106/74 (85) 94 07/07/20 02:00 42 26 87/49 (62) 97 07/07/20 01:00 44 24 89/57 (68) 97 07/07/20 00:00 70 07/07/20 00:00 Mechanical Ventilator Mechanical Ventilator Mechanical Ventilator 07/07/20 00:00 54 07/07/20 00:00 98.6 50 29 113/61 (78) 98 07/06/20 23:04 58 24 70 07/06/20 23:00 54 20 116/62 (80) 97 07/06/20 22:00 50 26 114/66 (82) 98 07/06/20 21:00 53 26 101/41 (61) 98 07/06/20 20:00 50 07/06/20 20:00 98.5 48 27 108/52 (70) 97 07/06/20 20:00 70 07/06/20 20:00 Mechanical Ventilator Mechanical Ventilator Mechanical Ventilator 07/06/20 19:10 50 24 70 07/06/20 19:00 49 22 123/73 (90) 98 07/06/20 18:00 49 28 124/77 (93) 100 07/06/20 17:00 46 25 103/78 (86) 99 07/06/20 16:00 Mechanical Ventilator Mechanical Ventilator Mechanical Ventilator 07/06/20 16:00 48 07/06/20 16:00 98.6 49 25 107/60 (76) 98 07/06/20 16:00 70 07/06/20 15:00 69 16 124/74 (91) 98 07/06/20 14:40 49 24 70 07/06/20 14:00 52 23 116/74 (88) 98 07/06/20 13:00 53 24 126/63 (84) 97 07/06/20 12:00 70 07/06/20 12:00 Mechanical Ventilator Mechanical Ventilator Mechanical Ventilator 07/06/20 12:00 98.6 51 21 131/57 (81) 97 Intake and Output 07/06/20 07/07/20 18:59 06:59 Intake Total 760 ml 800 ml Output Total 735 ml 896 ml Balance 25 ml -96 ml Free Water 200 ml Tube Feeding 600 ml 500 ml Blood Product 100 ml Other 160 ml Output Urine Total 735 ml 790 ml Stool Total 1 ml Chest Tube Drainage Total 45 ml Drainage Total 60 ml # Bowel Movements 2 3 Laboratory Tests 07/06/20 17:52: POC Whole Blood Glucose 112H 07/06/20 20:43: POC Whole Blood Glucose [Pending] 07/07/20 00:02: POC Whole Blood Glucose [Pending] 07/07/20 04:40: White Blood Count 5.0, Red Blood Count 2.80L, Hemoglobin 8.8L, Hematocrit 26.3L, Mean Corpuscular Volume 94, Mean Corpuscular Hemoglobin 31.7H, Mean Corpuscular Hemoglobin Concent 33.7, Red Cell Distribution Width 16.7H, Platelet Count 104L, Mean Platelet Volume 8.5, Neutrophils (%) (Auto) 77.8H, Lymphocytes (%) (Auto) 13.4L, Monocytes (%) (Auto) 8.1, Eosinophils (%) (Auto) 0.3, Basophils (%) (Auto) 0.5, Sodium Level 146H, Potassium Level 3.1L, Chloride Level 112H, Carbon Dioxide Level 27, Anion Gap 7, Blood Urea Nitrogen 22H, Creatinine 0.6, Estimat Glomerular Filtration Rate > 60, Glucose Level 170H, Calcium Level 7.1L, Total Bilirubin 0.6, Aspartate Amino Transf (AST/SGOT) 22, Alanine Aminotransferase (ALT/SGPT) 30, Alkaline Phosphatase 52, Pro-B-Type Natriuretic Peptide 3540H, Total Protein 4.2L, Albumin 1.2L, Globulin 3.0, Albumin/Globulin Ratio 0.4L, Thyroid Stimulating Hormone (TSH) 3.345 07/07/20 05:30: POC Whole Blood Glucose [Pending] 07/07/20 08:55: POC Whole Blood Glucose [Pending] Height (Feet): 5 Height (Inches): 3.00 Weight (Pounds): 172 General Appearance: lethargic EENT: normal ENT inspection Neck: supple Cardiovascular: normal rate Respiratory/Chest: decreased breath sounds Abdomen: normal bowel sounds, non tender, soft Extremities: non-tender Assessment/Plan Status: stable, not improved, unchanged Assessment/Plan: 1. History of Down syndrome. 2. Dysphagia with G-tube. 3. Seizure disorder. 4. Hypothyroidism. 5. LEANN. 6. Pneumonia. 7. Sepsis. fu H&H prn blood transfusion to keep HGB above 7 ppi GTF hold GI procedures for now stool ob + 1/2 Nehemiah Perez MD Jul 07, 2020 11:45
--- NOTE | 2020-07-07 11:49 | Infectious Diseases Prog Note ---
Assessment/Plan ASSESSMENT: sp code blue 06/03 Septic Shock; SP Fever, recurrent- low grade Leukocytosis; persistent/fluctuating, SP -06/27 Bcx NTD -06/17 u/a no pyuria -06/16 Bcx NTD (Picc line) -06/14 Bcx NTD ucx Neg sp cx C. parapsilopsis -06/03 u/a no pyuria Pneumonia.- COVID 19 neg x3 Acute hypoxic resp failure on VM> NRB 15l 100%; hypoxic on ABG> now VDRF 06/03- Fio2 80% >100% 06/05> 60% 06/09 >80% 06/10 >95% 06/18 >90% 06/22 >60% 06/23 R tension Pneumothroax sp CT 06/29 -06/30 CXR: Interim complete reexpansion of right lung without evidence of residual pneumothorax. Bilateral diffuse and extensive infiltrates. Markedly improved chest wall subcutaneous emphysema -06/29 CXR: Interim reexpansion of previously demonstrated right pneumothorax, status post large bore chest tube placement. -06/22 CXR: Improved aeration of both lungs. -06/13 CXR:Small bilateral pleural effusions with minor edema. Stable edema with mild worsening in the degree of pleural effusion on the right. -06/09 sp cx Neg 06/08 CXR: Extensive bilateral interstitial and airspace disease appears similar to the prior exam. Moderate to large bilateral pleural effusions appear unchanged. 06/05 CXR: Increasing left upper lobe dense consolidation and likely increasing bilateral pleural fluid. Persistent diffuse dense consolidation el sewhere -06/03 sp cx normal resp marie -06/02 CXR: Increased atelectasis of the right lung, since prior e xam of 3 days earlier. New or increased right pleural effusion. Increased left basilar consolidation and/or pleural fluid -COVID Rapid PCR neg 05/31, 05/31, 06/03 -05/30 spc x Group G strep -05/30 CXR: Reduced lung volumes. Patchy bilateral predominantly interstitial pulmonary opacities. Could be from edema and/or pneumonia. There is a broader differential. -legionella ag urine, blasto ab, Histo ab, HIV ab screen, FRANCIS, ANCA neg Persistent, high grade bacteremia- -05/30 Bcx 4/4 sets S. haemolyticus; 05/31 Bcx 3/4 S/ epi; 06/04 Bcx 1.4 S. warnerri; 06/06 Bcx Neg -2d echo: no vegetaions seen ua/ wbc 10-15, nit neg, leuk +1; ucx Neg LEANN; -supratherapeutic vanco levels -Seizure disorder. - Hypothyroidism. - Down syndrome. History of PEG tube placement. [place] resident PLAN: Continue to monitor off abx 06/22 SP Meropenem #18, IV Amikacin #7 06/12/20 SP Daptomycin #11 06/10 SP MIcafungin #7, Linezolid #5 06/05 SP Azithromycin #7/7 06/03 SP Ceftriaxone #2 06/02 SP IV Vancomycin #4, Zosyn #4 05/30 SP Cefepime x1, Flagyl x1 - Monitor CBC, BMP. .f/u cx - COVID neg x3 - Monitor chest x-ray. - Monitor the patient's clinical course and labs. Based on those, we will do further recommendation. -f/u Fungitell, asp ag, flow cytometry -poor prognosis Thank you, Dr. Allred, for allowing me to participate in the care of this patient. I will follow the patient with you at this hospitalization. Discussed with RN Subjective Allergies: Coded Allergies: No Known Allergies (Unverified , 10/16/18) Afebrile On Vent 60% O2 No leukocytosis Objective Last 24 Hour Vital Signs Date Time Temp Pulse Resp B/P (MAP) Pulse Ox O2 Delivery O2 Flow Rate FiO2 07/07/20 11:17 60 07/07/20 11:16 59 24 70 07/07/20 11:00 55 24 104/59 (74) 99 07/07/20 10:00 54 25 101/56 (71) 99 07/07/20 09:00 54 22 93/58 (70) 98 07/07/20 08:00 98.3 61 24 118/89 (99) 100 07/07/20 08:00 Mechanical Ventilator Mechanical Ventilator Mechanical Ventilator 07/07/20 08:00 70 07/07/20 07:57 60 24 70 07/07/20 07:41 42 07/07/20 07:00 39 24 111/60 (77) 99 07/07/20 06:00 41 26 116/61 (79) 99 07/07/20 05:00 45 30 96/48 (64) 97 07/07/20 04:00 45 07/07/20 04:00 98.4 57 30 117/52 (73) 97 07/07/20 04:00 70 07/07/20 04:00 Mechanical Ventilator Mechanical Ventilator Mechanical Ventilator 07/07/20 03:32 60 24 70 07/07/20 03:00 61 26 106/74 (85) 94 07/07/20 02:00 42 26 87/49 (62) 97 07/07/20 01:00 44 24 89/57 (68) 97 07/07/20 00:00 70 07/07/20 00:00 Mechanical Ventilator Mechanical Ventilator Mechanical Ventilator 07/07/20 00:00 54 07/07/20 00:00 98.6 50 29 113/61 (78) 98 07/06/20 23:04 58 24 70 07/06/20 23:00 54 20 116/62 (80) 97 07/06/20 22:00 50 26 114/66 (82) 98 07/06/20 21:00 53 26 101/41 (61) 98 07/06/20 20:00 50 07/06/20 20:00 98.5 48 27 108/52 (70) 97 07/06/20 20:00 70 07/06/20 20:00 Mechanical Ventilator Mechanical Ventilator Mechanical Ventilator 07/06/20 19:10 50 24 70 07/06/20 19:00 49 22 123/73 (90) 98 07/06/20 18:00 49 28 124/77 (93) 100 07/06/20 17:00 46 25 103/78 (86) 99 07/06/20 16:00 Mechanical Ventilator Mechanical Ventilator Mechanical Ventilator 07/06/20 16:00 48 07/06/20 16:00 98.6 49 25 107/60 (76) 98 07/06/20 16:00 70 07/06/20 15:00 69 16 124/74 (91) 98 07/06/20 14:40 49 24 70 07/06/20 14:00 52 23 116/74 (88) 98 07/06/20 13:00 53 24 126/63 (84) 97 07/06/20 12:00 70 07/06/20 12:00 Mechanical Ventilator Mechanical Ventilator Mechanical Ventilator 07/06/20 12:00 98.6 51 21 131/57 (81) 97 Height (Feet): 5 Height (Inches): 3.00 Weight (Pounds): 172 GEN: NAD on Vent 60% O2 HEENT: NCAT, Intubated, Pulm: Equal chest rise and fall B/L, No accessory muscle use ABD: Soft, ND SKIN: Exposed skin with no rash, Normal in color Laboratory Tests Test 07/06/20 17:52 07/06/20 20:43 07/07/20 00:02 07/07/20 04:40 POC Whole Blood Glucose 112 MG/DL (74-106) H Pending Pending White Blood Count 5.0 K/UL (4.8-10.8) Red Blood Count 2.80 M/UL (4.20-5.40) L Hemoglobin 8.8 G/DL (12.0-16.0) L Hematocrit 26.3 % (37.0-47.0) L Mean Corpuscular Volume 94 FL (80-99) Mean Corpuscular Hemoglobin 31.7 PG (27.0-31.0) H Mean Corpuscular Hemoglobin Concent 33.7 G/DL (32.0-36.0) Red Cell Distribution Width 16.7 % (11.6-14.8) H Platelet Count 104 K/UL (150-450) L Mean Platelet Volume 8.5 FL (6.5-10.1) Neutrophils (%) (Auto) 77.8 % (45.0-75.0) H Lymphocytes (%) (Auto) 13.4 % (20.0-45.0) L Monocytes (%) (Auto) 8.1 % (1.0-10.0) Eosinophils (%) (Auto) 0.3 % (0.0-3.0) Basophils (%) (Auto) 0.5 % (0.0-2.0) Sodium Level 146 MMOL/L (136-145) H Potassium Level 3.1 MMOL/L (3.5-5.1) L Chloride Level 112 MMOL/L (98-107) H Carbon Dioxide Level 27 MMOL/L (21-32) Anion Gap 7 mmol/L (5-15) Blood Urea Nitrogen 22 mg/dL (7-18) H Creatinine 0.6 MG/DL (0.55-1.30) Estimat Glomerular Filtration Rate > 60 mL/min (>60) Glucose Level 170 MG/DL (74-106) H Calcium Level 7.1 MG/DL (8.5-10.1) L Total Bilirubin 0.6 MG/DL (0.2-1.0) Aspartate Amino Transf (AST/SGOT) 22 U/L (15-37) Alanine Aminotransferase (ALT/SGPT) 30 U/L (12-78) Alkaline Phosphatase 52 U/L (46-116) Pro-B-Type Natriuretic Peptide 3540 pg/mL (0-125) H Total Protein 4.2 G/DL (6.4-8.2) L Albumin 1.2 G/DL (3.4-5.0) L Globulin 3.0 g/dL Albumin/Globulin Ratio 0.4 (1.0-2.7) L Thyroid Stimulating Hormone (TSH) 3.345 uiU/mL (0.358-3.740) Test 07/07/20 05:30 07/07/20 08:55 POC Whole Blood Glucose Pending Pending Current Medications Medications (Trade) Dose Ordered Sig/Katy Route PRN Reason Start Time Stop Time Status Last Admin Dose Admin Acetaminophen (Tylenol) 650 mg Q4H PRN GT For Pain 07/01/20 17:15 07/31/20 17:14 07/06/20 13:04 Chlorhexidine Gluconate (Alla-Hex 2%) 1 applic DAILY@1999 TOPIC 06/08/20 20:00 09/06/20 19:59 07/06/20 20:51 Clotrimazole (Lotrimin) 1 applic Q12HR TOPIC 06/07/20 13:00 09/05/20 12:59 07/07/20 08:56 Dextrose (Dextrose 50%) 25 ml Q30M PRN IV Hypoglycemia 06/03/20 11:30 08/28/20 11:29 Dextrose (Dextrose 50%) 50 ml Q30M PRN IV Hypoglycemia 06/03/20 11:30 08/28/20 11:29 Hydrocortisone (Solu-CORTEF) 50 mg EVERY 8 HOURS IV 07/06/20 06:00 10/04/20 05:59 07/07/20 05:50 Insulin Aspart (NovoLOG) Q6HR SUBQ 06/26/20 12:00 09/24/20 11:59 07/07/20 06:08 Insulin Detemir (Levemir) 10 units Q12HR SUBQ 06/26/20 10:00 09/24/20 09:59 07/07/20 08:59 Loperamide HCl (Imodium) 2 mg Q6H PRN NG Diarrhea 06/24/20 10:30 07/24/20 10:29 07/01/20 11:41 Pantoprazole (Protonix) 40 mg EVERY 12 HOURS IVP 07/06/20 21:00 08/05/20 20:59 07/07/20 08:56 Potassium Chloride (K-Dur) 40 meq EVERY 12 HOURS GT 07/04/20 21:00 09/26/20 12:14 07/07/20 08:56 Chencho Corley MD Jul 07, 2020 11:49
--- NOTE | 2020-07-07 12:11 | Pulmonolgy Critical Care Note ---
Critical Care - Asmt/Plan Problems: (1) Acute respiratory failure (2) Pneumothorax (3) Bacteremia (4) Pneumonia (5) Sepsis (6) HCAP (healthcare-associated pneumonia) (7) Seizure disorder (8) Down's syndrome (9) Trisomy 21, Down syndrome Respiratory: monitor respiratory rate, adjust FIO2, CXR Cardiac: continue pressors, continue to monitor HR/BP Renal: F/U I&O Infectious Disease: check cultures Gastrointestinal: continue feedings/current rate Endocrine: monitor blood sugar, continue sliding scale insulin Hematologic: transfuse if hgb<8.5 Neurologic: PRN Ativan, keep patient comfortable Affect: PRN ativan Disposition: keep in ICU Notes Reviewed: ash handler Discussed with: nurses, consultants, case management managerticket manager - Objective Last 24 Hour Vital Signs Date Time Temp Pulse Resp B/P (MAP) Pulse Ox O2 Delivery O2 Flow Rate FiO2 07/07/20 11:17 60 07/07/20 11:16 59 24 70 07/07/20 11:00 55 24 104/59 (74) 99 07/07/20 10:00 54 25 101/56 (71) 99 07/07/20 09:00 54 22 93/58 (70) 98 07/07/20 08:00 98.3 61 24 118/89 (99) 100 07/07/20 08:00 Mechanical Ventilator Mechanical Ventilator Mechanical Ventilator 07/07/20 08:00 70 07/07/20 07:57 60 24 70 07/07/20 07:41 42 07/07/20 07:00 39 24 111/60 (77) 99 07/07/20 06:00 41 26 116/61 (79) 99 07/07/20 05:00 45 30 96/48 (64) 97 07/07/20 04:00 45 07/07/20 04:00 98.4 57 30 117/52 (73) 97 07/07/20 04:00 70 07/07/20 04:00 Mechanical Ventilator Mechanical Ventilator Mechanical Ventilator 07/07/20 03:32 60 24 70 07/07/20 03:00 61 26 106/74 (85) 94 07/07/20 02:00 42 26 87/49 (62) 97 07/07/20 01:00 44 24 89/57 (68) 97 07/07/20 00:00 70 07/07/20 00:00 Mechanical Ventilator Mechanical Ventilator Mechanical Ventilator 07/07/20 00:00 54 07/07/20 00:00 98.6 50 29 113/61 (78) 98 07/06/20 23:04 58 24 70 07/06/20 23:00 54 20 116/62 (80) 97 07/06/20 22:00 50 26 114/66 (82) 98 07/06/20 21:00 53 26 101/41 (61) 98 07/06/20 20:00 50 07/06/20 20:00 98.5 48 27 108/52 (70) 97 07/06/20 20:00 70 07/06/20 20:00 Mechanical Ventilator Mechanical Ventilator Mechanical Ventilator 07/06/20 19:10 50 24 70 07/06/20 19:00 49 22 123/73 (90) 98 07/06/20 18:00 49 28 124/77 (93) 100 07/06/20 17:00 46 25 103/78 (86) 99 07/06/20 16:00 Mechanical Ventilator Mechanical Ventilator Mechanical Ventilator 07/06/20 16:00 48 07/06/20 16:00 98.6 49 25 107/60 (76) 98 07/06/20 16:00 70 07/06/20 15:00 69 16 124/74 (91) 98 07/06/20 14:40 49 24 70 07/06/20 14:00 52 23 116/74 (88) 98 07/06/20 13:00 53 24 126/63 (84) 97 Status: sedated Condition: improving HEENT: atraumatic Lungs: chest wall tender Heart: HR/BP stable Abdomen: soft Extremities: no C/C/E Accucheck: 185 Critical Care - Subjective ROS Limited/Unobtainable: Yes Condition: critical EKG Rhythm: Sinus Rhythm FI02: 60 Vent Support Breath Rate: 24 Vent Support Mode: AC Vent Tidal Volume: 500 Sputum Amount: Moderate PEEP: 0.0 PIP: 33 Tube Feeding Amount: 50 I&O: Intake and Output 07/06/20 07/07/20 19:00 07:00 Intake Total 760 ml 800 ml Output Total 765 ml 831 ml Balance -5 ml -31 ml Free Water 200 ml Tube Feeding 600 ml 500 ml Blood Product 100 ml Other 160 ml Output Urine Total 705 ml 785 ml Stool Total 1 ml Chest Tube Drainage Total 45 ml Drainage Total 60 ml # Bowel Movements 2 3 CXR: extensive bilateral infiltrate. ET-Tube: 7.5 ET Position: 22 Labs: Laboratory Tests Test 07/06/20 17:52 07/06/20 20:43 07/07/20 00:02 07/07/20 04:40 POC Whole Blood Glucose 112 MG/DL (74-106) H Pending Pending White Blood Count 5.0 K/UL (4.8-10.8) Red Blood Count 2.80 M/UL (4.20-5.40) L Hemoglobin 8.8 G/DL (12.0-16.0) L Hematocrit 26.3 % (37.0-47.0) L Mean Corpuscular Volume 94 FL (80-99) Mean Corpuscular Hemoglobin 31.7 PG (27.0-31.0) H Mean Corpuscular Hemoglobin Concent 33.7 G/DL (32.0-36.0) Red Cell Distribution Width 16.7 % (11.6-14.8) H Platelet Count 104 K/UL (150-450) L Mean Platelet Volume 8.5 FL (6.5-10.1) Neutrophils (%) (Auto) 77.8 % (45.0-75.0) H Lymphocytes (%) (Auto) 13.4 % (20.0-45.0) L Monocytes (%) (Auto) 8.1 % (1.0-10.0) Eosinophils (%) (Auto) 0.3 % (0.0-3.0) Basophils (%) (Auto) 0.5 % (0.0-2.0) Sodium Level 146 MMOL/L (136-145) H Potassium Level 3.1 MMOL/L (3.5-5.1) L Chloride Level 112 MMOL/L (98-107) H Carbon Dioxide Level 27 MMOL/L (21-32) Anion Gap 7 mmol/L (5-15) Blood Urea Nitrogen 22 mg/dL (7-18) H Creatinine 0.6 MG/DL (0.55-1.30) Estimat Glomerular Filtration Rate > 60 mL/min (>60) Glucose Level 170 MG/DL (74-106) H Calcium Level 7.1 MG/DL (8.5-10.1) L Total Bilirubin 0.6 MG/DL (0.2-1.0) Aspartate Amino Transf (AST/SGOT) 22 U/L (15-37) Alanine Aminotransferase (ALT/SGPT) 30 U/L (12-78) Alkaline Phosphatase 52 U/L (46-116) Pro-B-Type Natriuretic Peptide 3540 pg/mL (0-125) H Total Protein 4.2 G/DL (6.4-8.2) L Albumin 1.2 G/DL (3.4-5.0) L Globulin 3.0 g/dL Albumin/Globulin Ratio 0.4 (1.0-2.7) L Thyroid Stimulating Hormone (TSH) 3.345 uiU/mL (0.358-3.740) Test 07/07/20 05:30 07/07/20 08:55 07/07/20 12:06 POC Whole Blood Glucose Pending Pending 185 MG/DL (74-106) H Elayne Allred MD Jul 07, 2020 12:11
--- NOTE | 2020-07-07 12:42 | NUR ---
NURSE NOTES: Dr Allred observed patient bedside. Spoke to MD regarding POC. Per MD, original POC is to be full code. Able to wean only very slowly. Patient is under conservator and at time of admission SW spoke to conservator that requested FULL CODE status. At this time, patient is with decreased mentation, less arousable. Patient opens eyes to voice however, appears lethargic. Bioethics was discussed with Dr. Allred in which he agreed that it was necessary at this time for possible End of Life issues in the event that patient was to suffer another cardiac arrest given that patient has already done so once before. Bioethics consults has been placed per the MD. Will continue to monitor and will contact DWAYNE to follow up at the request of the MD.
--- NOTE | 2020-07-07 12:48 | NUR ---
NURSE NOTES: Called SW and Spoke to SANDEEP Dumas. Advised that Bioethics consult has been placed. Updated on the current status of the patient and the concern at present with a decreased mentation. EXECUTIVE ACCOUNT MANAGER will contact Dr. Allred to get further clarification regarding what type of code status he wants at this time. Will update the primary nurse as well as PM Charge.
--- NOTE | 2020-07-07 12:54 | NUR ---
[employer]N NOTE SW spoke w/ LULÚ Camejo and Dr. Allred and discussed the case. SW reviewed the chart. DWANYE spoke w/ Daysi from [facility] office [phone] that pt is NOT conserved. DWAYNE attempted to call pt's vocational case manager at [facility], Kourtney Hartley [phone] and left a voicemail for call back. DWAYNE also attempted to call the other emergency contact, Almaz Mercedes [phone], the call was not answered w/o voicemail option. DWAYNE will proceed with Bioethics consult after clarifying pt's guardianship with [facility]. DWAYNE will continue to F/U.
--- NOTE | 2020-07-07 13:18 | Cardiology Progress Note ---
Assessment/Plan Assessment/Plan sepsis respiratory failure ards renal insuf bacteremia abn cardiac enzyme due to demand sinus rafael stable thrombocytopenia resolved hypernatremia pneumothorax now s/p chest tube vent support abx may be mobilizing her fluids cxr pers reviewed not seem changed has air leak still tsh seems fine remains off pressor still at this time hr inthe 60's s no sig pauses on tele tele personally reviewed Subjective ROS Limited/Unobtainable: Yes Subjective on a vent not communicative AWAKE Objective Last 24 Hour Vital Signs Date Time Temp Pulse Resp B/P (MAP) Pulse Ox O2 Delivery O2 Flow Rate FiO2 07/07/20 12:00 Mechanical Ventilator Mechanical Ventilator Mechanical Ventilator 07/07/20 12:00 98.3 59 25 102/59 (73) 97 07/07/20 11:48 54 07/07/20 11:17 60 07/07/20 11:16 59 24 70 07/07/20 11:00 55 24 104/59 (74) 99 07/07/20 10:00 54 25 101/56 (71) 99 07/07/20 09:00 54 22 93/58 (70) 98 07/07/20 08:00 98.3 61 24 118/89 (99) 100 07/07/20 08:00 Mechanical Ventilator Mechanical Ventilator Mechanical Ventilator 07/07/20 08:00 70 07/07/20 07:57 60 24 70 07/07/20 07:41 42 07/07/20 07:00 39 24 111/60 (77) 99 07/07/20 06:00 41 26 116/61 (79) 99 07/07/20 05:00 45 30 96/48 (64) 97 07/07/20 04:00 45 07/07/20 04:00 98.4 57 30 117/52 (73) 97 07/07/20 04:00 70 07/07/20 04:00 Mechanical Ventilator Mechanical Ventilator Mechanical Ventilator 07/07/20 03:32 60 24 70 07/07/20 03:00 61 26 106/74 (85) 94 07/07/20 02:00 42 26 87/49 (62) 97 07/07/20 01:00 44 24 89/57 (68) 97 07/07/20 00:00 70 07/07/20 00:00 Mechanical Ventilator Mechanical Ventilator Mechanical Ventilator 07/07/20 00:00 54 07/07/20 00:00 98.6 50 29 113/61 (78) 98 07/06/20 23:04 58 24 70 07/06/20 23:00 54 20 116/62 (80) 97 07/06/20 22:00 50 26 114/66 (82) 98 07/06/20 21:00 53 26 101/41 (61) 98 07/06/20 20:00 50 07/06/20 20:00 98.5 48 27 108/52 (70) 97 07/06/20 20:00 70 07/06/20 20:00 Mechanical Ventilator Mechanical Ventilator Mechanical Ventilator 07/06/20 19:10 50 24 70 07/06/20 19:00 49 22 123/73 (90) 98 07/06/20 18:00 49 28 124/77 (93) 100 07/06/20 17:00 46 25 103/78 (86) 99 07/06/20 16:00 Mechanical Ventilator Mechanical Ventilator Mechanical Ventilator 07/06/20 16:00 48 07/06/20 16:00 98.6 49 25 107/60 (76) 98 07/06/20 16:00 70 07/06/20 15:00 69 16 124/74 (91) 98 07/06/20 14:40 49 24 70 07/06/20 14:00 52 23 116/74 (88) 98 General Appearance: no apparent distress, on vent, patient on isolation, isolation precautions Cardiovascular: normal rate Respiratory/Chest: crackles/rales - upper left , rhonchi - bilaterally Abdomen: normal bowel sounds, non tender, soft Extremities: moderate edema - improved edema Intake and Output 07/06/20 07/07/20 18:59 06:59 Intake Total 760 ml 800 ml Output Total 735 ml 896 ml Balance 25 ml -96 ml Free Water 200 ml Tube Feeding 600 ml 500 ml Blood Product 100 ml Other 160 ml Output Urine Total 735 ml 790 ml Stool Total 1 ml Chest Tube Drainage Total 45 ml Drainage Total 60 ml # Bowel Movements 2 3 Laboratory Tests Test 07/06/20 17:52 07/06/20 20:43 07/07/20 00:02 07/07/20 04:40 POC Whole Blood Glucose 112 MG/DL (74-106) H Pending Pending White Blood Count 5.0 K/UL (4.8-10.8) Red Blood Count 2.80 M/UL (4.20-5.40) L Hemoglobin 8.8 G/DL (12.0-16.0) L Hematocrit 26.3 % (37.0-47.0) L Mean Corpuscular Volume 94 FL (80-99) Mean Corpuscular Hemoglobin 31.7 PG (27.0-31.0) H Mean Corpuscular Hemoglobin Concent 33.7 G/DL (32.0-36.0) Red Cell Distribution Width 16.7 % (11.6-14.8) H Platelet Count 104 K/UL (150-450) L Mean Platelet Volume 8.5 FL (6.5-10.1) Neutrophils (%) (Auto) 77.8 % (45.0-75.0) H Lymphocytes (%) (Auto) 13.4 % (20.0-45.0) L Monocytes (%) (Auto) 8.1 % (1.0-10.0) Eosinophils (%) (Auto) 0.3 % (0.0-3.0) Basophils (%) (Auto) 0.5 % (0.0-2.0) Sodium Level 146 MMOL/L (136-145) H Potassium Level 3.1 MMOL/L (3.5-5.1) L Chloride Level 112 MMOL/L (98-107) H Carbon Dioxide Level 27 MMOL/L (21-32) Anion Gap 7 mmol/L (5-15) Blood Urea Nitrogen 22 mg/dL (7-18) H Creatinine 0.6 MG/DL (0.55-1.30) Estimat Glomerular Filtration Rate > 60 mL/min (>60) Glucose Level 170 MG/DL (74-106) H Calcium Level 7.1 MG/DL (8.5-10.1) L Total Bilirubin 0.6 MG/DL (0.2-1.0) Aspartate Amino Transf (AST/SGOT) 22 U/L (15-37) Alanine Aminotransferase (ALT/SGPT) 30 U/L (12-78) Alkaline Phosphatase 52 U/L (46-116) Pro-B-Type Natriuretic Peptide 3540 pg/mL (0-125) H Total Protein 4.2 G/DL (6.4-8.2) L Albumin 1.2 G/DL (3.4-5.0) L Globulin 3.0 g/dL Albumin/Globulin Ratio 0.4 (1.0-2.7) L Thyroid Stimulating Hormone (TSH) 3.345 uiU/mL (0.358-3.740) Test 07/07/20 05:30 07/07/20 08:55 07/07/20 12:06 POC Whole Blood Glucose Pending Pending 185 MG/DL (74-106) H Josue Pantoja MD Jul 07, 2020 13:18
--- NOTE | 2020-07-07 13:49 | NUR ---
STREET LIGHT REPAIRER HELPER NOTE There is a copy of POLST- full code signed by pt in December 2017. SW attempted to meet w/ pt to assess her current mental status. Pt is awake and making eye contacts w/ this SW. SW attempted to assess pt by asking her to blink her eyes, pointing, or using her fingers/hands to give signals. However, pt was starring at this SW and was unable to express herself in a meaningful way. SW received a voicemail from the director of casework, Kourtney Hartley [phone]. SW left another voicemail for call back.
--- NOTE | 2020-07-07 13:55 | Diagnostic Imaging Report ---
Indication: Reason For Exam: [id number] Technique: Single AP view of the chest. Comparison: Chest dated 06/28/2020 Findings: The cardiomediastinal silhouette is unchanged in appearance. Redemonstration of bilateral diffuse severe airspace disease. Increasing right pneumothorax. No increasing pleural effusion. Interval retraction of right-sided chest tube. Unchanged endotracheal tube and left PICC. IMPRESSION: Interval retraction of right-sided chest tube with increasing right pneumothorax. Repositioning of chest tube is recommended. Findings reported to treating nurse Small at 1345 on 07/07/2020
--- NOTE | 2020-07-07 13:59 | NUR ---
NURSE NOTES: Called Dr. Light's office, spoke with executive secretary. Left message that it's urgent. [place] said that she will page Dr. Light.
--- NOTE | 2020-07-07 14:09 | NUR ---
NURSE NOTES: Informed Dr. Allred regarding today's xray result. Informed MD the Chest Xray Impression: Interval retraction of right sided chest tube with increasing right pneumothorax. Repositioning of chest tube recommended. Informed Dr. Allred that Dr. Light was already paged and awaiting for call back. Dr. Allred recommends to connect right chest tube to low continuous suction instead of intermittent.
--- NOTE | 2020-07-07 14:23 | Nephrology Progress Note ---
Assessment/Plan Problem List: (1) LEANN (acute kidney injury) (2) Respiratory failure requiring intubation (3) Down's syndrome (4) Seizure disorder (5) Hypothyroidism Assessment Acute renal failure, likely due to hypotension Acute respiratory distress, hypoxia Seizure disorder Hypothyroidism Down syndrome Full code Fluid challenge with IV fluids and albumin Midodrine for BP above 100 systolic Check TSH level Check Correct level Monitor renal parameters Urine studies Per orders Plan July 07: Labs reviewed. Electrolyte abnormalities addressed and replaced. Medication list reviewed. Heart rate remains mid 50s. Continue as is. July 06: On ventilator. Full code. Heart rate low. Will discontinue Midodrin. Continue to rest. Electrolytes within normal limit. Discussed with RN. July 05: Remains intubated. Full code. No plan for tracheostomy yet. Labs reviewed. All acceptable. Continue same management July 04: Labs reviewed. Discussed with RN. Potassium and phosphorus and magnesium replacement ordered. Hemoglobin 9.5. Patient remains full code. Continue per consultants. July 03: Lab reviewed. Renal parameters stable. Full code. Intubated. Electrolyte abnormalities addressed and replacement done. July 02: Lab reviewed. Renal parameters stable. Full code. Intubated. Has right side chest tube. Continue per consultants. July 01: Lab reviewed. Renal parameters stable. Full code. Has right chest tube. Planning process for tracheostomy. Defer to chest and general surgeon. June 30: Labs reviewed. Renal parameters stable. Remains full code. Remains on ventilator. Due for tracheostomy tomorrow. Continue per consultants. Patient has a right chest tube in place at this time. June 29: Labs reviewed. Electrolyte imbalances addressed and supplemented. Remains full code and on ventilator. Continue to monitor renal parameters. Continue per consultants. June 28: Labs reviewed. Serum potassium again low today. Potassium supplement IV and through GT given. Patient remains full code and is on ve ntilator. Continue per consultants. Continue to monitor electrolytes and renal parameters. June 27: Labs reviewed. Abnormal electrolyte addressed. Remains full code. Remains vented. June 26: Day 27 of hospitalization. Full code. Labs reviewed. Hemoglobin down to 7.5. Electrolyte abnormalities addressed and corrections ordered. Continue to monitor renal parameters. Continue per consultants. Start on Levemir for blood sugar management. Questioning continuation of hydrocortisone? June 25: Labs reviewed. Potassium, phosphorus, hemoglobin, are all low. Potassium and phosphorus IV replacement given. Continue to monitor electrolytes and CBC. Patient remains full code. June 24: Lab reviewed. Low phosphorus low magnesium and low potassium was addressed. Hemoglobin drifting lower. Continue per consultants. Patient remains full code. June 23: Labs reviewed. Patient continues to be on ventilator. D5W for high sodium and also potassium chloride intravenously as supplement given. Hemoglobin 8.4. Continue to monitor electrolytes and renal parameters. June 22: Labs reviewed. Low potassium and high sodium noted. Hemoglobin 8.1 stable. Aim to correct abnormal electrolyte. Continue rest. Will give 2 boluses of D5W 500 cc. June 21: Lab reviewed. Abnormal electrolytes noted and addressed. June 20: Labs reviewed. Potassium supplement given. Patient remains full code. Continue per consultants. June 19: Lab reviewed. Electrolyte abnormalities addressed. Continue per pulmonary and ID. June 18: Lab reviewed. Status unchanged. Serum sodium 151 unchanged. Stable from renal standpoint of view. June 17: Labs reviewed. Status quo. D5W 500 cc IV ordered. Continue to monitor renal parameters. June 16: Status quo. Labs reviewed. Overall condition unchanged. Patient was transfused and hemoglobin higher. Continue current management. Patient remains full code. June 15: Status quo. Overall condition poor. Very low albumin. Edematous. Hypotensive. Hemoglobin lower. Anemia work-up ordered. I favor transfusion 2 units of packed RBCs. Patient remains full code. I favor supportive care only. Will discuss. June 14: Electrolyte abnormalities addressed. Serum creatinine lower. Continue per current management. June 13: Status unchanged. Lab reviewed. Serum potassium 2.7. IV potassium chloride ordered. Serum creatinine low at 1.6 stable. Blood pressure 90s systolic June 12: Status quo. Labs reviewed. Renal parameters stable. Serum creatinine down to 1.6. Medication list reviewed. Continues to be on midodrine. Continue per consultants. June 11: Status quo. Labs reviewed. Electrolytes adjusted. Serum creatinine down to 1.8. Continue per consultants. June 10: Status quo. Labs reviewed. Phosphorus supplement IV given. Serum creatinine 2. Continue per consultants. June 09: Requires less pressors. Albumin bolus given. 1 dose of Lasix IV ordered as the patient severely edematous. Patient serum albumin is very low. Continue per consultants. June 08: Continues to be intubated. Labs reviewed. Serum creatinine 1.9 unchanged. Blood pressure more stable. Off 1 of the pressors. Continue to monitor renal parameters. Continue per consultants. Patient now on hydrocortisone 100 mg every 8 hours. Will decrease IV fluid. Normal saline down to 50 cc an hour. June 07: Intubated. Labs reviewed. Creatinine 1.9 unchanged. Continue same treatment plan. Per consultants. Overall poor prognosis since the patient remains on pressors and her pulmonary status is worsening. June 06: Remains intubated. Labs reviewed. Creatinine 1.9. Blood pressure systolic 90s. Continue per consultants. June 05: Remains intubated. Labs reviewed. Serum creatinine lower to 2. Vancomycin level lower. Remains hypotensive on pressors. Will increase midodrine to 10 mg every 8 hours. Continue per consultants. Continue to monitor renal parameters. June 04: Patient now in ICU. Intubated. On pressors. Labs reviewed. Will increase midodrine. Aim to keep blood pressure over 100 systolic. Will give albumin bolus. Will check vancomycin level which was elevated when checked previously on June 01. Will monitor renal parameters. Continue per consultants. Subjective ROS Limited/Unobtainable: Yes Objective Objective Last 24 Hour Vital Signs Date Time Temp Pulse Resp B/P (MAP) Pulse Ox O2 Delivery O2 Flow Rate FiO2 07/07/20 14:00 53 20 99/55 (70) 98 07/07/20 13:00 62 23 128/55 (79) 97 07/07/20 12:00 Mechanical Ventilator Mechanical Ventilator Mechanical Ventilator 07/07/20 12:00 98.3 59 25 102/59 (73) 97 07/07/20 11:48 54 07/07/20 11:17 60 07/07/20 11:16 59 24 70 07/07/20 11:00 55 24 104/59 (74) 99 07/07/20 10:00 54 25 101/56 (71) 99 07/07/20 09:00 54 22 93/58 (70) 98 07/07/20 08:00 98.3 61 24 118/89 (99) 100 07/07/20 08:00 Mechanical Ventilator Mechanical Ventilator Mechanical Ventilator 07/07/20 08:00 70 07/07/20 07:57 60 24 70 07/07/20 07:41 42 07/07/20 07:00 39 24 111/60 (77) 99 07/07/20 06:00 41 26 116/61 (79) 99 07/07/20 05:00 45 30 96/48 (64) 97 07/07/20 04:00 45 07/07/20 04:00 98.4 57 30 117/52 (73) 97 07/07/20 04:00 70 07/07/20 04:00 Mechanical Ventilator Mechanical Ventilator Mechanical Ventilator 07/07/20 03:32 60 24 70 07/07/20 03:00 61 26 106/74 (85) 94 07/07/20 02:00 42 26 87/49 (62) 97 07/07/20 01:00 44 24 89/57 (68) 97 07/07/20 00:00 70 07/07/20 00:00 Mechanical Ventilator Mechanical Ventilator Mechanical Ventilator 07/07/20 00:00 54 07/07/20 00:00 98.6 50 29 113/61 (78) 98 07/06/20 23:04 58 24 70 07/06/20 23:00 54 20 116/62 (80) 97 07/06/20 22:00 50 26 114/66 (82) 98 07/06/20 21:00 53 26 101/41 (61) 98 07/06/20 20:00 50 07/06/20 20:00 98.5 48 27 108/52 (70) 97 07/06/20 20:00 70 07/06/20 20:00 Mechanical Ventilator Mechanical Ventilator Mechanical Ventilator 07/06/20 19:10 50 24 70 07/06/20 19:00 49 22 123/73 (90) 98 07/06/20 18:00 49 28 124/77 (93) 100 07/06/20 17:00 46 25 103/78 (86) 99 07/06/20 16:00 Mechanical Ventilator Mechanical Ventilator Mechanical Ventilator 07/06/20 16:00 48 07/06/20 16:00 98.6 49 25 107/60 (76) 98 07/06/20 16:00 70 07/06/20 15:00 69 16 124/74 (91) 98 07/06/20 14:40 49 24 70 Intake and Output 07/06/20 07/07/20 19:00 07:00 Intake Total 760 ml 800 ml Output Total 765 ml 831 ml Balance -5 ml -31 ml Free Water 200 ml Tube Feeding 600 ml 500 ml Blood Product 100 ml Other 160 ml Output Urine Total 705 ml 785 ml Stool Total 1 ml Chest Tube Drainage Total 45 ml Drainage Total 60 ml # Bowel Movements 2 3 Laboratory Tests 07/06/20 17:52: POC Whole Blood Glucose 112H 07/06/20 20:43: POC Whole Blood Glucose [Pending] 07/07/20 00:02: POC Whole Blood Glucose [Pending] 07/07/20 04:40: White Blood Count 5.0, Red Blood Count 2.80L, Hemoglobin 8.8L, Hematocrit 26.3L, Mean Corpuscular Volume 94, Mean Corpuscular Hemoglobin 31.7H, Mean Corpuscular Hemoglobin Concent 33.7, Red Cell Distribution Width 16.7H, Platelet Count 104L , Mean Platelet Volume 8.5, Neutrophils (%) (Auto) 77.8H, Lymphocytes (%) (Auto) 13.4L, Monocytes (%) (Auto) 8.1, Eosinophils (%) (Auto) 0.3, Basophils (%) (Auto) 0.5, Sodium Level 146H, Potassium Level 3.1L, Chloride Level 112H, Carbon Dioxide Level 27, Anion Gap 7, Blood Urea Nitrogen 22H, Creatinine 0.6, Estimat Glomerular Filtration Rate > 60, Glucose Level 170H, Calcium Level 7.1L, Total Bilirubin 0.6, Aspartate Amino Transf (AST/SGOT) 22, Alanine Aminotransferase (ALT/SGPT) 30, Alkaline Phosphatase 52, Pro-B-Type Natriuretic Peptide 3540H, Total Protein 4.2L, Albumin 1.2L, Globulin 3.0, Albumin/Globulin Ratio 0.4L, Thyroid Stimulating Hormone (TSH) 3.345 07/07/20 05:30: POC Whole Blood Glucose [Pending] 07/07/20 08:55: POC Whole Blood Glucose [Pending] 07/07/20 12:06: POC Whole Blood Glucose 185H Height (Feet): 5 Height (Inches): 3.00 Weight (Pounds): 172 General Appearance: no apparent distress Cardiovascular: normal rate, bradycardia Respiratory/Chest: decreased breath sounds Abdomen: soft, distended Keron Pitt MD Jul 07, 2020 14:23
--- NOTE | 2020-07-07 14:38 | NUR ---
NURSE NOTES: Called Dr. Light's office again, spoke with medical secretary teacher again, followed up regarding patient's urgent report. She said that Dr. Light is not answering the pager. She will call Dr. Light again. ICU phone number left with Dr. Light's medical secretary teacher. Charge nurse made aware.
--- NOTE | 2020-07-07 15:17 | NUR ---
NURSE NOTES: Dr. Light called back, discussed patient's condition. Read today's chest Xray Impression: Interval retraction of right sided chest tube with increasing right pneumothorax. Repositioning of chest tube recommended. And that Dr. Allred recommends to connect right chest tube to low continuous suction instead of intermittent. Dr. Light ordered to connect patient's right chest tube to low continuous suction. And to repeat chest xray tomorrow, and call him for chest xray results.
--- NOTE | 2020-07-07 17:00 | NUR ---
NURSE NOTES: Bedbath provided by 2 staff.
--- NOTE | 2020-07-07 17:12 | NUR ---
RECREATION ADVISER NOTE SW spoke w/ pt's skilled nursing case manager, Kourtney Hartley [phone] that she will talk to the medical team at [facility] on the next day and find out their policy on addressing code status. SW will continue to F/U.
[2020-07-07] MEDS: Acetaminophen 650mg/20.3ml GT PRN (17:33)
--- NOTE | 2020-07-07 17:45 | Internal Med Progress Note ---
Subjective Date of Service: Jul 07, 2020 Physician Name Joni Copeland Attending Physician Elayne Allred MD Current Medications Medications (Trade) Dose Ordered Sig/Katy Route PRN Reason Start Time Stop Time Status Last Admin Dose Admin Acetaminophen (Tylenol) 650 mg Q4H PRN GT For Pain 07/01/20 17:15 07/31/20 17:14 07/07/20 17:33 Chlorhexidine Gluconate (Alla-Hex 2%) 1 applic DAILY@1999 TOPIC 06/08/20 20:00 09/06/20 19:59 07/06/20 20:51 Clotrimazole (Lotrimin) 1 applic Q12HR TOPIC 06/07/20 13:00 09/05/20 12:59 07/07/20 08:56 Dextrose (Dextrose 50%) 25 ml Q30M PRN IV Hypoglycemia 06/03/20 11:30 08/28/20 11:29 Dextrose (Dextrose 50%) 50 ml Q30M PRN IV Hypoglycemia 06/03/20 11:30 08/28/20 11:29 Hydrocortisone (Solu-CORTEF) 50 mg EVERY 8 HOURS IV 07/06/20 06:00 10/04/20 05:59 07/07/20 13:22 Insulin Aspart (NovoLOG) Q6HR SUBQ 06/26/20 12:00 09/24/20 11:59 07/07/20 12:09 Insulin Detemir (Levemir) 10 units Q12HR SUBQ 06/26/20 10:00 09/24/20 09:59 07/07/20 08:59 Levothyroxine Sodium (Synthroid) 75 mcg DAILY@0630 GT 07/08/20 06:30 08/07/20 06:29 Loperamide HCl (Imodium) 2 mg Q6H PRN NG Diarrhea 06/24/20 10:30 07/24/20 10:29 07/01/20 11:41 Pantoprazole (Protonix) 40 mg EVERY 12 HOURS IVP 07/06/20 21:00 08/05/20 20:59 07/07/20 08:56 Potassium Chloride (K-Dur) 40 meq EVERY 12 HOURS GT 07/04/20 21:00 09/26/20 12:14 07/07/20 08:56 Allergies: Coded Allergies: No Known Allergies (Unverified , 10/16/18) ROS Limited/Unobtainable: Yes Subjective 59 YO F with Down's syndrome admitted with hypoxia. Now sepsis and pneumonia. Cover for Int Med-DR Hawk. ICU. Intubated and sedated Objective Last Vital Signs Date Time Temp Pulse Resp B/P (MAP) Pulse Ox O2 Delivery O2 Flow Rate FiO2 07/07/20 17:00 66 28 102/57 (72) 96 07/07/20 16:00 Mechanical Ventilator Mechanical Ventilator Mechanical Ventilator 07/07/20 16:00 60 07/07/20 12:00 98.3 Laboratory Tests Test 07/06/20 17:52 07/06/20 20:43 07/07/20 00:02 07/07/20 04:40 POC Whole Blood Glucose 112 MG/DL (74-106) H Pending Pending White Blood Count 5.0 K/UL (4.8-10.8) Red Blood Count 2.80 M/UL (4.20-5.40) L Hemoglobin 8.8 G/DL (12.0-16.0) L Hematocrit 26.3 % (37.0-47.0) L Mean Corpuscular Volume 94 FL (80-99) Mean Corpuscular Hemoglobin 31.7 PG (27.0-31.0) H Mean Corpuscular Hemoglobin Concent 33.7 G/DL (32.0-36.0) Red Cell Distribution Width 16.7 % (11.6-14.8) H Platelet Count 104 K/UL (150-450) L Mean Platelet Volume 8.5 FL (6.5-10.1) Neutrophils (%) (Auto) 77.8 % (45.0-75.0) H Lymphocytes (%) (Auto) 13.4 % (20.0-45.0) L Monocytes (%) (Auto) 8.1 % (1.0-10.0) Eosinophils (%) (Auto) 0.3 % (0.0-3.0) Basophils (%) (Auto) 0.5 % (0.0-2.0) Sodium Level 146 MMOL/L (136-145) H Potassium Level 3.1 MMOL/L (3.5-5.1) L Chloride Level 112 MMOL/L (98-107) H Carbon Dioxide Level 27 MMOL/L (21-32) Anion Gap 7 mmol/L (5-15) Blood Urea Nitrogen 22 mg/dL (7-18) H Creatinine 0.6 MG/DL (0.55-1.30) Estimat Glomerular Filtration Rate > 60 mL/min (>60) Glucose Level 170 MG/DL (74-106) H Calcium Level 7.1 MG/DL (8.5-10.1) L Total Bilirubin 0.6 MG/DL (0.2-1.0) Aspartate Amino Transf (AST/SGOT) 22 U/L (15-37) Alanine Aminotransferase (ALT/SGPT) 30 U/L (12-78) Alkaline Phosphatase 52 U/L (46-116) Pro-B-Type Natriuretic Peptide 3540 pg/mL (0-125) H Total Protein 4.2 G/DL (6.4-8.2) L Albumin 1.2 G/DL (3.4-5.0) L Globulin 3.0 g/dL Albumin/Globulin Ratio 0.4 (1.0-2.7) L Thyroid Stimulating Hormone (TSH) 3.345 uiU/mL (0.358-3.740) Test 07/07/20 05:30 07/07/20 08:55 07/07/20 12:06 07/07/20 12:41 POC Whole Blood Glucose Pending Pending 185 MG/DL (74-106) H Arterial Blood pH 7.508 (7.350-7.450) Arterial Blood Partial Pressure CO2 37.2 mmHg (35.0-45.0) Arterial Blood Partial Pressure O2 89.8 mmHg (75.0-100.0) Arterial Blood HCO3 28.9 mmol/L (22.0-26.0) H Arterial Blood Oxygen Saturation 96.6 % (95-100) Arterial Blood Base Excess 5.5 (-2-2) H Jonathan Test Positive Test 07/07/20 17:25 POC Whole Blood Glucose 102 MG/DL (74-106) Intake and Output 07/06/20 07/07/20 18:59 06:59 Intake Total 760 ml 800 ml Output Total 735 ml 896 ml Balance 25 ml -96 ml Free Water 200 ml Tube Feeding 600 ml 500 ml Blood Product 100 ml Other 160 ml Output Urine Total 735 ml 790 ml Stool Total 1 ml Chest Tube Drainage Total 45 ml Drainage Total 60 ml # Bowel Movements 2 3 Objective General Appearance: WD/WN, no apparent distress, alert EENT: PERRL/EOMI, normal ENT inspection Neck: non-tender, normal alignment, supple, normal inspection Cardiovascular: normal peripheral pulses, normal rate, regular rhythm, no gallop/murmur, no JVD Respiratory/Chest: Mech vent; decreased breath sounds, crackles/rales, rhonchi - bilaterally, expiratory wheezing Abdomen: normal bowel sounds, non tender, soft, no organomegaly, no mass Extremities: normal range of motion Neurologic: military pay clerk II-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 S/P amikacin per ID=Dr Camejo. Pulmonary/Critical care=DR Allred. COVID NEG (2) Sepsis Assessment & Plan: Staph haemolyticus. S/P amikacin per ID=Dr Camejo (3) Down's syndrome (4) Dysphagia Assessment & Plan: S/P PEG (5) Seizure disorder Assessment & Plan: Continue keppra and depakote (6) Hypothyroidism Assessment & Plan: Continue synthroid (7) Acute respiratory failure Assessment & Plan: Pulmonary = Dr Allred; mech vent (8) Pneumothorax, right Assessment & Plan: Continue chest tube per pulmonary (9) Cardiac arrest Assessment & Plan: 06/03/20-see cardiology note=Joni Lord MD Jul 07, 2020 17:45
--- NOTE | 2020-07-07 19:20 | NUR ---
NURSE HAND-OFF REPORT: Latest Vital Signs: Temperature 98.0 , Pulse 61 , B/P 99 /51 , Respiratory Rate 20 , O2 SAT 99 , Mechanical Ventilator, O2 Flow Rate 15.0 . Vital Sign Comment: right chest tube connected to low continuous suction. EKG Rhythm: Sinus Rhythm Rhythm change?: N Latest Osorio Fall Score: 70 Fall Risk: High Risk Safety Measures: Call light Within Reach, Bed Alarm Zone 1, Side Rails Side Rails x3, Bed position Low and Locked. Fall Precautions: Yellow Socks Door Sign Patient Fall Education Contact isolation endorsed. Report given to Hung Doty RN.
--- NOTE | 2020-07-07 19:37 | NUR ---
NURSE NOTES: received from carol rn pt orally intubated -vent 02 sat 100% NO ACUTE RESP DISTRESS CHEST [id number] TO CONT SUCTION PT AWAKE DO NOT FOLLOWS COMMAND MOVING UPPER LIFT EXT TOLERATING TUBE FEEDING NO RESIDUAL REPOSITION AND SUCTION IV INFUSING WELL
[2020-07-07] MEDS: Dyna-Hex 2% Top Sol 2oz TOPIC SCH (20:34)
--- NOTE | 2020-07-07 23:29 | NUR ---
NURSE NOTES: Called and left message for MD Allred at this time. patient noted with low Tidal Volumes. RT at the beside. Awaiting Call back
--- NOTE | 2020-07-07 23:45 | NUR ---
NURSE NOTES: Notified Nursing instrument maintenance supervisor THERESA Allred not calling back. Patient noted to be more Lethargic.
--- NOTE | 2020-07-07 23:49 | NUR ---
NURSE NOTES: Nursing hematology supervisor was able to get a hold of Chalino at this time. MD will call ER MD for reintubation.
[2020-07-08] VITALS (24 sets, daily range): BP systolic 100–152; BP diastolic 57–93
--- NOTE | 2020-07-08 | NUR ---
NURSE NOTES: DR SOTELO IN AND REINTUBATE PT AND TOLERATE WILL CHEST X-RAY DONE AND ETT WAS PULL BACK 2 CM POR ORDER RODIOLOGY AND REPEAT CHEST X-RAY DONE
--- NOTE | 2020-07-08 01:12 | Diagnostic Imaging Report ---
EXAM: XR Chest, 1 View CLINICAL HISTORY: S/P INTUB TECHNIQUE: Frontal view of the chest. COMPARISON: 07/07/2020 IMPRESSION: ET tube terminates at the joseph. Recommend pullback 4-5 cm. Right central line terminates in the proximal right atrium/cavoatrial junction. Diffuse lung opacities are again seen. <MYCVCSECTION> Communications: 07/08/20 01:17 Call Nurse Called ASSISTANT FIELD HOCKEY COACHTAI Croft on 07/08 01:17 (-07:00)
--- NOTE | 2020-07-08 02:00 | NUR ---
NURSE NOTES: asleep o2 sat 100% no acute resp distress noted
--- NOTE | 2020-07-08 02:27 | Diagnostic Imaging Report ---
EXAM: XR Chest, 1 View CLINICAL HISTORY: TUBE PLCMT TECHNIQUE: Frontal view of the chest. COMPARISON: 07/08/2020 IMPRESSION: ET tube terminates 3.5 cm from the joseph.
--- NOTE | 2020-07-08 03:08 | Emergency Room Report ---
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: Yes COVID-19 Screening: Negative COVID-19 COVID-19 Testing Source: 05/18/20 Nursing Documentation-[facility] Past Medical History: No History, Except For Hx Cardiac Problems: No - PVD Hx Diabetes: No - Hypothyroid Hx Cancer: No Hx Gastrointestinal Problems: No - gastrostomy Hx Neurological Problems: Yes - down syndrome Hx Seizures: Yes Hx Speech Problem: Yes Physical Exam Vital Signs Date Time Temp Pulse Resp B/P (MAP) Pulse Ox O2 Delivery O2 Flow Rate FiO2 07/03/20 03:59 65 26 80 07/03/20 04:00 Mechanical Ventilator Mechanical Ventilator 07/03/20 04:00 98.2 138/71 (93) 96 Procedures Intubation Intubation : Consent: Emergent Tube Size (cm): 7.5 Medications: Etomidate, Rocuronium Breath Sounds after Intubation: equal Post Intubation Xray: Yes Attempts: One Patient Tolerated: Well Complications: None Medical Decision Making Diagnostic Impression: Primary Impression: ARDS (adult respiratory distress syndrome) Additional Impressions: HCAP (healthcare-associated pneumonia) Septic shock Respiratory failure requiring intubation ER Course Total critical care time: Approximately 15 minutes Due to a high probability of clinically significant, life threatening deterioration, the patient required the highest level of preparedness to intervene emergently and I personally spent this critical care time directly and personally managing the patient. This critical care time included obtaining a history, examining the patient, pulse oximetry, ordering and reviewing studies, ordering treatments, evaluating response to treatment and updating management plan as needed, frequent reassessment and discussion with other providers as well as arranging for ultimate disposition. This critical to care time was perf ormed to assess and manage the high probability of life-threatening deterioration that could result in multiorgan failure. This critical care time is separate from the separately billable procedures and treating other patients. I was called to the ICU as the cause of the patient's endotracheal tube appeared to have deflated. When arrived to the ICU the patient had normal oxygen s aturation and did not appear to be in any respiratory distress on the ventilator. The patient's ETT cuff could not be inflated. Patient was actively biting the tube. She was given etomidate and rocuronium. The bougie was passed through the patient's endotracheal tube which was easily removed and a new 7.5 endotracheal tube was replaced over the bougie. Placed at 22 cm at the lip. Patient never had any episodes of hypoxia or respiratory distress during the procedure. Post intubation chest x-ray was ordered. Last Vital Signs Date Time Temp Pulse Resp B/P (MAP) Pulse Ox O2 Delivery O2 Flow Rate FiO2 07/08/20 02:00 53 20 129/69 (89) 93 07/08/20 00:00 Mechanical Ventilator Mechanical Ventilator Mechanical Ventilator 07/08/20 00:00 98.6 07/07/20 22:55 60 Disposition: ADMITTED INPATIENT Condition: Critical Referrals: NON PHYSICIAN (PCP) Med Marie M.D. Jul 08, 2020 03:08
--- NOTE | 2020-07-08 04:00 | NUR ---
NURSE NOTES: complete bed bath oral care and back care chest tube dressing change done
[2020-07-08 05:44] LABS: ALANINE AMINOTRANSFERASE 37 U/L (12-78); ALBUMIN 1.4 G/DL (3.4-5.0); ALBUMIN/GLOBULIN RATIO 0.4 (1.0-2.7); ALKALINE PHOSPHATASE 66 U/L (46-116); ANION GAP 6 mmol/L (5-15); ASPARTATE AMINO TRANSFERASE 23 U/L (15-37); BILIRUBIN,TOTAL 0.7 MG/DL (0.2-1.0); BLOOD UREA NITROGEN 20 mg/dL (7-18); CALCIUM 7.6 MG/DL (8.5-10.1); CARBON DIOXIDE 28 MMOL/L (21-32); CHLORIDE 113 MMOL/L (98-107); CREATININE 0.7 MG/DL (0.55-1.30); PHOSPHORUS 2.3 MG/DL (2.5-4.9); POTASSIUM 3.8 MMOL/L (3.5-5.1); SODIUM 147 MMOL/L (136-145)
[2020-07-08] MEDS: Hydrocortisone 100mg Inj IV SCH ×3 (05:56→22:00)
[2020-07-08] MEDS: NovoLOG Insulin Flexpen SUBQ SCH ×4 (05:58→23:56)
--- NOTE | 2020-07-08 06:00 | NUR ---
NURSE NOTES: bs 156 insulin coverage as order
--- NOTE | 2020-07-08 07:29 | NUR ---
NURSE HAND-OFF REPORT: Latest Vital Signs: Temperature 98.0 , Pulse 54 , B/P 125 /76 , Respiratory Rate 25 , O2 SAT 97 , Mechanical Ventilator, O2 Flow Rate 15.0 . Vital Sign Comment: EKG Rhythm: Sinus Bradycardia Rhythm change?: N Notified?: Y Chaparro Oliveros MD Response: No New Orders Received Latest Osorio Fall Score: 70 Fall Risk: High Risk Safety Measures: Call light Within Reach, Bed Alarm Zone 1, Side Rails Side Rails x3, Bed position Low and Locked. Fall Precautions: Yellow Socks Door Sign Patient Fall Education Report given to arias rn using sbar.
--- NOTE | 2020-07-08 07:38 | NUR ---
NURSE NOTES: Received patient from Nilsa Doty RN. Orally intubated, ET size of 7.5, 24 cm in the lip, mechanical ventilator dependent. Ventilator settings of AC 24, Tidal Volume 500, FiO2 of 60%, no PEEP. GT feeding on hold for synthroid. Patient asleep. Remains Sinus Blair in the monitor, heart rate of 53. Left upper arm PICC noted. Gregorio cath inplace with yellow clear urine output noted in drainage bag by gravity. Right lateral chest tube remains in place, connected to low continuous suction, with serous drainage noted in the pleurovac. Contact isolation observed. Will continue plan of care.
--- NOTE | 2020-07-08 08:10 | Pulmonolgy Critical Care Note ---
Critical Care - Asmt/Plan Problems: (1) Acute respiratory failure (2) Pneumothorax (3) Bacteremia (4) Pneumonia (5) Sepsis (6) HCAP (healthcare-associated pneumonia) (7) Seizure disorder (8) Down's syndrome (9) Trisomy 21, Down syndrome Respiratory: adjust tidal volume, monitor respiratory rate, adjust FIO2, CXR Cardiac: continue pressors, continue to monitor HR/BP Renal: F/U I&O, keep IV fluid, check electrolytes Infectious Disease: check cultures, continue antibiotics Gastrointestinal: continue feedings/current rate Endocrine: monitor blood sugar Hematologic: monitor H/H, transfuse if hgb<8.5 Neurologic: PRN Ativan, keep patient comfortable Affect: PRN ativan Prophylaxis: Heparin Time Spent (Minutes): 40 Notes 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, 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, 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 with: nurses, consultants, 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 - Objective Last 24 Hour Vital Signs Date Time Temp Pulse Resp B/P (MAP) Pulse Ox O2 Delivery O2 Flow Rate FiO2 07/08/20 07:00 54 25 125/76 (92) 97 07/08/20 06:00 55 25 125/73 (90) 96 07/08/20 05:00 64 27 100/87 (91) 98 07/08/20 04:00 60 07/08/20 04:00 Mechanical Ventilator Mechanical Ventilator Mechanical Ventilator 07/08/20 04:00 60 07/08/20 04:00 98.0 51 20 113/66 (82) 85 07/08/20 03:14 69 24 60 07/08/20 03:00 46 18 124/59 (80) 07/08/20 02:00 53 20 129/69 (89) 93 07/08/20 01:00 72 23 137/74 (95) 93 07/08/20 00:00 58 07/08/20 00:00 Mechanical Ventilator Mechanical Ventilator Mechanical Ventilator 07/08/20 00:00 98.6 56 30 108/71 (83) 95 07/08/20 00:00 60 07/07/20 23:00 67 29 117/57 (77) 99 07/07/20 22:55 52 24 60 07/07/20 22:00 70 23 133/49 (77) 98 07/07/20 21:00 50 24 122/79 (93) 97 07/07/20 20:00 98.5 68 25 126/51 (76) 97 07/07/20 20:00 54 07/07/20 20:00 60 07/07/20 20:00 Mechanical Ventilator Mechanical Ventilator Mechanical Ventilator 07/07/20 19:30 54 24 60 07/07/20 19:00 61 20 99/51 (67) 99 07/07/20 18:00 57 21 95/66 (76) 98 07/07/20 17:00 66 28 102/57 (72) 96 07/07/20 16:00 Mechanical Ventilator Mechanical Ventilator Mechanical Ventilator 07/07/20 16:00 60 07/07/20 16:00 98.0 55 18 129/55 (79) 95 07/07/20 15:25 51 07/07/20 15:03 65 24 60 07/07/20 15:00 55 24 121/76 (91) 96 07/07/20 14:00 53 20 99/55 (70) 98 07/07/20 13:00 62 23 128/55 (79) 97 07/07/20 12:00 Mechanical Ventilator Mechanical Ventilator Mechanical Ventilator 07/07/20 12:00 98.3 59 25 102/59 (73) 97 07/07/20 11:48 54 07/07/20 11:17 60 07/07/20 11:16 59 24 70 07/07/20 11:00 55 24 104/59 (74) 99 07/07/20 10:00 54 25 101/56 (71) 99 07/07/20 09:00 54 22 93/58 (70) 98 Status: sedated Condition: critical Neck: full ROM Lungs: clear Heart: HR/BP stable Abdomen: soft Extremities: no C/C/E Accucheck: 156 Critical Care - Subjective ROS Limited/Unobtainable: Yes Condition: critical EKG Rhythm: Sinus Rhythm FI02: 60 Vent Support Breath Rate: 24 Vent Support Mode: AC Vent Tidal Volume: 500 Sputum Amount: Moderate PEEP: 0.0 PIP: 37 Tube Feeding Amount: 50 I&O: Intake and Output 07/07/20 07/08/20 19:00 07:00 Intake Total 800 ml 700 ml Output Total 540 ml 540 ml Balance 260 ml 160 ml Free Water 200 ml IV Total 100 ml Tube Feeding 600 ml 500 ml Other 100 ml Output Urine Total 530 ml 540 ml Chest Tube Drainage Total 10 ml # Bowel Movements 2 3 CXR: extensive infiltrate ET-Tube: 7.5 ET Position: 22 Labs: Laboratory Tests Test 07/07/20 08:55 07/07/20 12:06 07/07/20 12:41 07/07/20 17:25 POC Whole Blood Glucose Pending 185 MG/DL (74-106) H 102 MG/DL (74-106) Arterial Blood pH 7.508 (7.350-7.450) Arterial Blood Partial Pressure CO2 37.2 mmHg (35.0-45.0) Arterial Blood Partial Pressure O2 89.8 mmHg (75.0-100.0) Arterial Blood HCO3 28.9 mmol/L (22.0-26.0) H Arterial Blood Oxygen Saturation 96.6 % (95-100) Arterial Blood Base Excess 5.5 (-2-2) H Jonathan Test Positive Test 07/07/20 20:28 07/07/20 23:30 07/08/20 04:20 POC Whole Blood Glucose Pending Pending Sodium Level 147 MMOL/L (136-145) H Potassium Level 3.8 MMOL/L (3.5-5.1) Chloride Level 113 MMOL/L (98-107) H Carbon Dioxide Level 28 MMOL/L (21-32) Anion Gap 6 mmol/L (5-15) Blood Urea Nitrogen 20 mg/dL (7-18) H Creatinine 0.7 MG/DL (0.55-1.30) Estimat Glomerular Filtration Rate > 60 mL/min (>60) Glucose Level 144 MG/DL (74-106) H Calcium Level 7.6 MG/DL (8.5-10.1) L Phosphorus Level 2.3 MG/DL (2.5-4.9) L Magnesium Level 1.8 MG/DL (1.8-2.4) Total Bilirubin 0.7 MG/DL (0.2-1.0) Aspartate Amino Transf (AST/SGOT) 23 U/L (15-37) Alanine Aminotransferase (ALT/SGPT) 37 U/L (12-78) Alkaline Phosphatase 66 U/L (46-116) Total Protein 5.3 G/DL (6.4-8.2) L Albumin 1.4 G/DL (3.4-5.0) L Globulin 3.9 g/dL Albumin/Globulin Ratio 0.4 (1.0-2.7) L Elayne Allred MD Jul 08, 2020 08:10
--- NOTE | 2020-07-08 08:10 | NUR ---
NURSE NOTES: Dr. Allred at bedside.
[2020-07-08] MEDS ORDERED: Rocuronium Bromide 50mg/5ml Inj IV ONE (08:29)
[2020-07-08] MEDS ORDERED: Etomidate 40mg/20ml Inj IV ONE (08:29)
[2020-07-08] MEDS: Pantoprazole Inj IVP SCH ×2 (08:49→20:56)
--- NOTE | 2020-07-08 08:50 | NUR ---
NURSE NOTES: Dr. Pitt at bedside.
[2020-07-08] MEDS: Levemir Flexpen SUBQ SCH ×2 (08:51→20:57)
--- NOTE | 2020-07-08 08:54 | General Progress Note ---
Subjective ROS Limited/Unobtainable: No Allergies: Coded Allergies: No Known Allergies (Unverified , 10/16/18) Objective Last 24 Hour Vital Signs Date Time Temp Pulse Resp B/P (MAP) Pulse Ox O2 Delivery O2 Flow Rate FiO2 07/08/20 07:11 45 24 60 07/08/20 07:00 54 25 125/76 (92) 97 07/08/20 06:00 55 25 125/73 (90) 96 07/08/20 05:00 64 27 100/87 (91) 98 07/08/20 04:00 60 07/08/20 04:00 Mechanical Ventilator Mechanical Ventilator Mechanical Ventilator 07/08/20 04:00 60 07/08/20 04:00 98.0 51 20 113/66 (82) 85 07/08/20 03:14 69 24 60 07/08/20 03:00 46 18 124/59 (80) 07/08/20 02:00 53 20 129/69 (89) 93 07/08/20 01:00 72 23 137/74 (95) 93 07/08/20 00:00 58 07/08/20 00:00 Mechanical Ventilator Mechanical Ventilator Mechanical Ventilator 07/08/20 00:00 98.6 56 30 108/71 (83) 95 07/08/20 00:00 60 07/07/20 23:00 67 29 117/57 (77) 99 07/07/20 22:55 52 24 60 07/07/20 22:00 70 23 133/49 (77) 98 07/07/20 21:00 50 24 122/79 (93) 97 07/07/20 20:00 98.5 68 25 126/51 (76) 97 07/07/20 20:00 54 07/07/20 20:00 60 07/07/20 20:00 Mechanical Ventilator Mechanical Ventilator Mechanical Ventilator 07/07/20 19:30 54 24 60 07/07/20 19:00 61 20 99/51 (67) 99 07/07/20 18:00 57 21 95/66 (76) 98 07/07/20 17:00 66 28 102/57 (72) 96 07/07/20 16:00 Mechanical Ventilator Mechanical Ventilator Mechanical Ventilator 07/07/20 16:00 60 07/07/20 16:00 98.0 55 18 129/55 (79) 95 07/07/20 15:25 51 07/07/20 15:03 65 24 60 07/07/20 15:00 55 24 121/76 (91) 96 07/07/20 14:00 53 20 99/55 (70) 98 07/07/20 13:00 62 23 128/55 (79) 97 07/07/20 12:00 Mechanical Ventilator Mechanical Ventilator Mechanical Ventilator 07/07/20 12:00 98.3 59 25 102/59 (73) 97 07/07/20 11:48 54 07/07/20 11:17 60 07/07/20 11:16 59 24 70 07/07/20 11:00 55 24 104/59 (74) 99 07/07/20 10:00 54 25 101/56 (71) 99 07/07/20 09:00 54 22 93/58 (70) 98 Intake and Output 0 07/07/20 07/08/20 18:59 06:59 Intake Total 800 ml 750 ml Output Total 535 ml 550 ml Balance 265 ml 200 ml Free Water 200 ml IV Total 100 ml Tube Feeding 600 ml 550 ml Other 100 ml Output Urine Total 535 ml 540 ml Chest Tube Drainage Total 10 ml # Bowel Movements 1 4 Laboratory Tests 07/07/20 08:55: POC Whole Blood Glucose [Pending] 07/07/20 12:06: POC Whole Blood Glucose 185H 07/07/20 12:41: Arterial Blood pH 7.508H, Arterial Blood Partial Pressure CO2 37.2, Arterial Blood Partial Pressure O2 89.8, Arterial Blood HCO3 28.9H, Arterial Blood Oxygen Saturation 96.6, Arterial Blood Base Excess 5.5H, Jonathan Test Positive 07/07/20 17:25: POC Whole Blood Glucose 102 07/07/20 20:28: POC Whole Blood Glucose [Pending] 07/07/20 23:30: POC Whole Blood Glucose [Pending] 07/08/20 04:20: Sodium Level 147H, Potassium Level 3.8, Chloride Level 113H, Carbon Dioxide Level 28, Anion Gap 6, Blood Urea Nitrogen 20H, Creatinine 0.7, Estimat Glomerular Filtration Rate > 60, Glucose Level 144H, Calcium Level 7.6L, Phosphorus Level 2.3L, Magnesium Level 1.8, Total Bilirubin 0.7, Aspartate Amino Transf (AST/SGOT) 23, Alanine Aminotransferase (ALT/SGPT) 37, Alkaline Phosphatase 66, Total Protein 5.3L, Albumin 1.4L, Globulin 3.9, Albumin/Globulin Ratio 0.4L Height (Feet): 5 Height (Inches): 3.00 Weight (Pounds): 172 General Appearance: lethargic EENT: normal ENT inspection Neck: supple Cardiovascular: normal rate Respiratory/Chest: decreased breath sounds Abdomen: hypoactive bowel sounds Extremities: non-tender Assessment/Plan Status: stable, not improved, unchanged Assessment/Plan: 1. History of Down syndrome. 2. Dysphagia with G-tube. 3. Seizure disorder. 4. Hypothyroidism. 5. LEANN. 6. Pneumonia. 7. Sepsis. fu H&H prn blood transfusion to keep HGB above 7 ppi GTF hold GI procedures for now stool ob + 1/2 Nehemiah Perez MD Jul 08, 2020 08:54
--- NOTE | 2020-07-08 09:45 | Diagnostic Imaging Report ---
Procedure: XRAY Chest 1v Reason for study: Chest tube adjustment. Shortness of breath. Comparison films: 07/08/2020 at 0136 hours. Present study at 0919 hours. FINDINGS: Endotracheal tube and left PICC line remain in place. A right chest tube again noted at the right lung base. On this single frontal projection, the chest tube appears to have been advanced slightly. Extensive bilateral alveolar densities otherwise unchanged. Cardiac and mediastinal silhouette are within normal limits. Small effusions noted. The bony thorax appear unremarkable. IMPRESSION: Compared to the prior exam, the chest tube at the right lung base is perhaps slightly advanced as seen on this frontal projection only. Rest of study otherwise unchanged
--- NOTE | 2020-07-08 10:27 | NUR ---
NURSE NOTES: Spoke with Dr. RAMOS. Read today's chest xray result: Compared to the prior exam, the chest tube at the right lung base is perhaps slightly advanced as seen on this frontal projection only. Dr. RAMOS said to continue low continuous right chest tube suction. Continuous air bubbling in plerovac reported to Dr. RAMOS.
--- NOTE | 2020-07-08 10:42 | NUR ---
RADIOLOGY DEPT., CHEST X-RAY FOR CHEST TUBE PLCMT COMPLETED.-P.DYE
--- NOTE | 2020-07-08 11:45 | Infectious Diseases Prog Note ---
Assessment/Plan ASSESSMENT: sp code blue 06/03 Septic Shock; SP Fever, recurrent- low grade Leukocytosis; persistent/fluctuating, SP -06/27 Bcx NTD -06/17 u/a no pyuria -06/16 Bcx NTD (Picc line) -06/14 Bcx NTD ucx Neg sp cx C. parapsilopsis -06/03 u/a no pyuria Pneumonia.- COVID 19 neg x3 Acute hypoxic resp failure on VM> NRB 15l 100%; hypoxic on ABG> now VDRF 06/03- Fio2 80% >100% 06/05> 60% 06/09 >80% 06/10 >95% 06/18 >90% 06/22 >60% 06/23 R tension Pneumothroax sp CT 06/29 -06/30 CXR: Interim complete reexpansion of right lung without evidence of residual pneumothorax. Bilateral diffuse and extensive infiltrates. Markedly improved chest wall subcutaneous emphysema -06/29 CXR: Interim reexpansion of previously demonstrated right pneumothorax, status post large bore chest tube placement. -06/22 CXR: Improved aeration of both lungs. -06/13 CXR:Small bilateral pleural effusions with minor edema. Stable edema with mild worsening in the degree of pleural effusion on the right. -06/09 sp cx Neg 06/08 CXR: Extensive bilateral interstitial and airspace disease appears similar to the prior exam. Moderate to large bilateral pleural effusions appear unchanged. 06/05 CXR: Increasing left upper lobe dense consolidation and likely increasing bilateral pleural fluid. Persistent diffuse dense consolidation el sewhere -06/03 sp cx normal resp marie -06/02 CXR: Increased atelectasis of the right lung, since prior e xam of 3 days earlier. New or increased right pleural effusion. Increased left basilar consolidation and/or pleural fluid -COVID Rapid PCR neg 05/31, 05/31, 06/03 -05/30 spc x Group G strep -05/30 CXR: Reduced lung volumes. Patchy bilateral predominantly interstitial pulmonary opacities. Could be from edema and/or pneumonia. There is a broader differential. -legionella ag urine, blasto ab, Histo ab, HIV ab screen, FRANCIS, ANCA neg Persistent, high grade bacteremia- -05/30 Bcx 4/4 sets S. haemolyticus; 05/31 Bcx 3/4 S/ epi; 06/04 Bcx 1.4 S. warnerri; 06/06 Bcx Neg -2d echo: no vegetaions seen ua/ wbc 10-15, nit neg, leuk +1; ucx Neg LEANN; -supratherapeutic vanco levels -Seizure disorder. - Hypothyroidism. - Down syndrome. History of PEG tube placement. [place] resident PLAN: Monitor off abx 06/22 SP Meropenem #18, IV Amikacin #7 06/12/20 SP Daptomycin #11 06/10 SP MIcafungin #7, Linezolid #5 06/05 SP Azithromycin #7/7 06/03 SP Ceftriaxone #2 06/02 SP IV Vancomycin #4, Zosyn #4 05/30 SP Cefepime x1, Flagyl x1 - Monitor CBC, BMP. .f/u cx - COVID neg x3 - Monitor chest x-ray. - Monitor the patient's clinical course and labs. Based on those, we will do further recommendation. -f/u Fungitell, asp ag, flow cytometry -poor prognosis Thank you, Dr. Allred, for allowing me to participate in the care of this patient. I will follow the patient with you at this hospitalization. Discussed with RN Subjective Allergies: Coded Allergies: No Known Allergies (Unverified , 10/16/18) Afebrile On Vent 60% O2 No leukocytosis MOLLY Objective Last 24 Hour Vital Signs Date Time Temp Pulse Resp B/P (MAP) Pulse Ox O2 Delivery O2 Flow Rate FiO2 07/08/20 11:06 61 24 60 07/08/20 11:00 52 21 142/93 (109) 94 07/08/20 10:00 49 26 140/75 (96) 95 07/08/20 09:00 63 24 117/69 (85) 96 07/08/20 08:00 60 07/08/20 08:00 98.3 53 27 141/72 (95) 96 07/08/20 08:00 Mechanical Ventilator Mechanical Ventilator Mechanical Ventilator 07/08/20 07:41 59 07/08/20 07:11 45 24 60 07/08/20 07:00 54 25 125/76 (92) 97 07/08/20 06:00 55 25 125/73 (90) 96 07/08/20 05:00 64 27 100/87 (91) 98 07/08/20 04:00 60 07/08/20 04:00 Mechanical Ventilator Mechanical Ventilator Mechanical Ventilator 07/08/20 04:00 60 07/08/20 04:00 98.0 51 20 113/66 (82) 85 07/08/20 03:14 69 24 60 07/08/20 03:00 46 18 124/59 (80) 07/08/20 02:00 53 20 129/69 (89) 93 07/08/20 01:00 72 23 137/74 (95) 93 07/08/20 00:00 58 07/08/20 00:00 Mechanical Ventilator Mechanical Ventilator Mechanical Ventilator 07/08/20 00:00 98.6 56 30 108/71 (83) 95 07/08/20 00:00 60 07/07/20 23:00 67 29 117/57 (77) 99 07/07/20 22:55 52 24 60 07/07/20 22:00 70 23 133/49 (77) 98 07/07/20 21:00 50 24 122/79 (93) 97 07/07/20 20:00 98.5 68 25 126/51 (76) 97 07/07/20 20:00 54 07/07/20 20:00 60 07/07/20 20:00 Mechanical Ventilator Mechanical Ventilator Mechanical Ventilator 07/07/20 19:30 54 24 60 07/07/20 19:00 61 20 99/51 (67) 99 07/07/20 18:00 57 21 95/66 (76) 98 07/07/20 17:00 66 28 102/57 (72) 96 07/07/20 16:00 Mechanical Ventilator Mechanical Ventilator Mechanical Ventilator 07/07/20 16:00 60 07/07/20 16:00 98.0 55 18 129/55 (79) 95 07/07/20 15:25 51 07/07/20 15:03 65 24 60 07/07/20 15:00 55 24 121/76 (91) 96 07/07/20 14:00 53 20 99/55 (70) 98 07/07/20 13:00 62 23 128/55 (79) 97 07/07/20 12:00 Mechanical Ventilator Mechanical Ventilator Mechanical Ventilator 07/07/20 12:00 98.3 59 25 102/59 (73) 97 07/07/20 11:48 54 Height (Feet): 5 Height (Inches): 3.00 Weight (Pounds): 172 GEN: NAD on Vent HEENT: NCAT, Intubated, Pulm: Equal chest rise and fall B/L, No accessory muscle use ABD: Soft, ND SKIN: Exposed skin with no rash, Normal in color Laboratory Tests Test 07/07/20 12:06 07/07/20 12:41 07/07/20 17:25 07/07/20 20:28 POC Whole Blood Glucose 185 MG/DL (74-106) H 102 MG/DL (74-106) Pending Arterial Blood pH 7.508 (7.350-7.450) Arterial Blood Partial Pressure CO2 37.2 mmHg (35.0-45.0) Arterial Blood Partial Pressure O2 89.8 mmHg (75.0-100.0) Arterial Blood HCO3 28.9 mmol/L (22.0-26.0) H Arterial Blood Oxygen Saturation 96.6 % (95-100) Arterial Blood Base Excess 5.5 (-2-2) H Jonathan Test Positive Test 07/07/20 23:30 07/08/20 04:20 POC Whole Blood Glucose Pending Sodium Level 147 MMOL/L (136-145) H Potassium Level 3.8 MMOL/L (3.5-5.1) Chloride Level 113 MMOL/L (98-107) H Carbon Dioxide Level 28 MMOL/L (21-32) Anion Gap 6 mmol/L (5-15) Blood Urea Nitrogen 20 mg/dL (7-18) H Creatinine 0.7 MG/DL (0.55-1.30) Estimat Glomerular Filtration Rate > 60 mL/min (>60) Glucose Level 144 MG/DL (74-106) H Calcium Level 7.6 MG/DL (8.5-10.1) L Phosphorus Level 2.3 MG/DL (2.5-4.9) L Magnesium Level 1.8 MG/DL (1.8-2.4) Total Bilirubin 0.7 MG/DL (0.2-1.0) Aspartate Amino Transf (AST/SGOT) 23 U/L (15-37) Alanine Aminotransferase (ALT/SGPT) 37 U/L (12-78) Alkaline Phosphatase 66 U/L (46-116) Total Protein 5.3 G/DL (6.4-8.2) L Albumin 1.4 G/DL (3.4-5.0) L Globulin 3.9 g/dL Albumin/Globulin Ratio 0.4 (1.0-2.7) L Current Medications Medications (Trade) Dose Ordered Sig/Katy Route PRN Reason Start Time Stop Time Status Last Admin Dose Admin Acetaminophen (Tylenol) 650 mg Q4H PRN GT For Pain 07/01/20 17:15 07/31/20 17:14 07/07/20 17:33 Chlorhexidine Gluconate (Alla-Hex 2%) 1 applic DAILY@1999 TOPIC 06/08/20 20:00 09/06/20 19:59 07/07/20 20:34 Clotrimazole (Lotrimin) 1 applic Q12HR TOPIC 06/07/20 13:00 09/05/20 12:59 07/08/20 08:49 Dextrose (Dextrose 50%) 25 ml Q30M PRN IV Hypoglycemia 06/03/20 11:30 08/28/20 11:29 Dextrose (Dextrose 50%) 50 ml Q30M PRN IV Hypoglycemia 06/03/20 11:30 08/28/20 11:29 Hydrocortisone (Solu-CORTEF) 50 mg EVERY 8 HOURS IV 07/06/20 06:00 10/04/20 05:59 07/08/20 05:56 Insulin Aspart (NovoLOG) Q6HR SUBQ 06/26/20 12:00 09/24/20 11:59 07/08/20 05:58 Insulin Detemir (Levemir) 10 units Q12HR SUBQ 06/26/20 10:00 09/24/20 09:59 07/08/20 08:51 Levothyroxine Sodium (Synthroid) 75 mcg DAILY@30 GT 07/08/20 06:30 08/07/20 06:29 07/08/20 05:58 Loperamide HCl (Imodium) 2 mg Q6H PRN NG Diarrhea 06/24/20 10:30 07/24/20 10:29 07/01/20 11:41 Pantoprazole (Protonix) 40 mg EVERY 12 HOURS IVP 07/06/20 21:00 08/05/20 20:59 07/08/20 08:49 Potassium Chloride (K-Dur) 40 meq EVERY 12 HOURS GT 07/04/20 21:00 09/26/20 12:14 07/08/20 08:49 Chencho Corley MD Jul 08, 2020 11:45
--- NOTE | 2020-07-08 11:53 | NUR ---
[employer] DRIVER NOTE DWAYNE received a call from Sinai from [facility] clinical department [phone]. Per Sinai, the department will review the clinicals and bioethics recommendation to address the code status. DWAYNE will fax clinicals to [phone]. DWAYNE notified Dr. Rowley of bioethics consult. WDAYNE will continue to F/U.
--- NOTE | 2020-07-08 12:30 | NUR ---
NURSE NOTES: No signs and symptoms of hypoglycemia. Tolerating current GTF.
--- NOTE | 2020-07-08 13:06 | Internal Med Progress Note ---
Subjective Date of Service: Jul 08, 2020 Physician Name Joni Copeland Attending Physician Elayne Allred MD Current Medications Medications (Trade) Dose Ordered Sig/Katy Route PRN Reason Start Time Stop Time Status Last Admin Dose Admin Acetaminophen (Tylenol) 650 mg Q4H PRN GT For Pain 07/01/20 17:15 07/31/20 17:14 07/07/20 17:33 Chlorhexidine Gluconate (Alla-Hex 2%) 1 applic DAILY@2000 TOPIC 06/08/20 20:00 09/06/20 19:59 07/07/20 20:34 Clotrimazole (Lotrimin) 1 applic Q12HR TOPIC 06/07/20 13:00 09/05/20 12:59 07/08/20 08:49 Dextrose (Dextrose 50%) 25 ml Q30M PRN IV Hypoglycemia 06/03/20 11:30 08/28/20 11:29 Dextrose (Dextrose 50%) 50 ml Q30M PRN IV Hypoglycemia 06/03/20 11:30 08/28/20 11:29 Hydrocortisone (Solu-CORTEF) 50 mg EVERY 8 HOURS IV 07/06/20 06:00 10/04/20 05:59 07/08/20 05:56 Insulin Aspart (NovoLOG) Q6HR SUBQ 06/26/20 12:00 09/24/20 11:59 07/08/20 05:58 Insulin Detemir (Levemir) 10 units Q12HR SUBQ 06/26/20 10:00 09/24/20 09:59 07/08/20 08:51 Levothyroxine Sodium (Synthroid) 75 mcg DAILY@0630 GT 07/08/20 06:30 08/07/20 06:29 07/08/20 05:58 Loperamide HCl (Imodium) 2 mg Q6H PRN NG Diarrhea 06/24/20 10:30 07/24/20 10:29 07/01/20 11:41 Pantoprazole (Protonix) 40 mg EVERY 12 HOURS IVP 07/06/20 21:00 08/05/20 20:59 07/08/20 08:49 Potassium Chloride (K-Dur) 40 meq EVERY 12 HOURS GT 07/04/20 21:00 09/26/20 12:14 07/08/20 08:49 Allergies: Coded Allergies: No Known Allergies (Unverified , 10/16/18) ROS Limited/Unobtainable: Yes Subjective 59 YO F with Down's syndrome admitted with hypoxia. Now sepsis and pneumonia. Cover for Int Arturo-DR Hawk. ICU. Intubated and sedated Objective Last Vital Signs Date Time Temp Pulse Resp B/P (MAP) Pulse Ox O2 Delivery O2 Flow Rate FiO2 07/08/20 12:00 60 07/08/20 12:00 46 24 152/68 (96) 96 07/08/20 12:00 Mechanical Ventilator Mechanical Ventilator Mechanical Ventilator 07/08/20 08:00 98.3 Laboratory Tests Test 07/07/20 17:25 07/07/20 20:28 07/07/20 23:30 07/08/20 04:20 POC Whole Blood Glucose 102 MG/DL (74-106) Pending Pending Sodium Level 147 MMOL/L (136-145) H Potassium Level 3.8 MMOL/L (3.5-5.1) Chloride Level 113 MMOL/L (98-107) H Carbon Dioxide Level 28 MMOL/L (21-32) Anion Gap 6 mmol/L (5-15) Blood Urea Nitrogen 20 mg/dL (7-18) H Creatinine 0.7 MG/DL (0.55-1.30) Estimat Glomerular Filtration Rate > 60 mL/min (>60) Glucose Level 144 MG/DL (74-106) H Calcium Level 7.6 MG/DL (8.5-10.1) L Phosphorus Level 2.3 MG/DL (2.5-4.9) L Magnesium Level 1.8 MG/DL (1.8-2.4) Total Bilirubin 0.7 MG/DL (0.2-1.0) Aspartate Amino Transf (AST/SGOT) 23 U/L (15-37) Alanine Aminotransferase (ALT/SGPT) 37 U/L (12-78) Alkaline Phosphatase 66 U/L (46-116) Total Protein 5.3 G/DL (6.4-8.2) L Albumin 1.4 G/DL (3.4-5.0) L Globulin 3.9 g/dL Albumin/Globulin Ratio 0.4 (1.0-2.7) L Intake and Output 07/07/20 07/08/20 19:00 07:00 Intake Total 800 ml 700 ml Output Total 540 ml 540 ml Balance 260 ml 160 ml Free Water 200 ml IV Total 100 ml Tube Feeding 600 ml 500 ml Other 100 ml Output Urine Total 530 ml 540 ml Chest Tube Drainage Total 10 ml # Bowel Movements 2 3 Objective General Appearance: WD/WN, no apparent distress, alert EENT: PERRL/EOMI, normal ENT inspection Neck: non-tender, normal alignment, supple, normal inspection Cardiovascular: normal peripheral pulses, normal rate, regular rhythm, no gallop/murmur, no JVD Respiratory/Chest: Mech vent; decreased breath sounds, crackles/rales, rhonchi - bilaterally, expiratory wheezing Abdomen: normal bowel sounds, non tender, soft, no organomegaly, no mass Extremities: normal range of motion 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 S/P amikacin per ID=Dr Camejo. Pulmonary/Critical care=DR Allred. COVID NEG (2) Sepsis Assessment & Plan: Staph haemolyticus. S/P amikacin per ID=Dr Camejo (3) Down's syndrome (4) Dysphagia Assessment & Plan: S/P PEG (5) Seizure disorder Assessment & Plan: Continue keppra and depakote (6) Hypothyroidism Assessment & Plan: Continue synthroid (7) Acute respiratory failure Assessment & Plan: Pulmonary = Dr Allred; mech vent (8) Pneumothorax, right Assessment & Plan: Continue chest tube per pulmonary (9) Cardiac arrest Assessment & Plan: 06/03/20-see cardiology note=Joni Lord MD Jul 08, 2020 13:06
--- NOTE | 2020-07-08 13:14 | General Progress Note ---
Progress Note Progress Note Bioethics Consult The patient is a 60 yo developmentally disabled woman with Trisomy 21 hospitalized Goyo Rowley MD Jul 08, 2020 13:14
--- NOTE | 2020-07-08 13:35 | Consultation ---
History of Present Illness General Date patient seen: Jul 08, 2020 Chief Complaint: Dyspnea/Respdistress Present Illness HPI This is a very unfortunate 60-year-old female with history of Down syndrome multiple comorbidities who presented to [facility] sometime ago with respiratory insufficiency and shortness of breath admitted further care and management currently intubated intensive care unit at [facility] under medical and ICU care teams. Patient has not been able to safely wean off ventilator support despite multiple attempts. Given her mental status and current condition safe extubation despite minimal events vent settings is conc erning. Surgery was called to evaluate for tracheostomy placement. Patient seen, patient evaluate, chart reviewed. Care plan discussed with medical pulmonary and ICU teams. Allergies: Coded Allergies: No Known Allergies (Unverified , 10/16/18) Medication History Scheduled Ascorbic Acid* (Vitamin C*), 500 MG GT DAILY, (Reported) Baclofen* (Baclofen*), 10 MG GT Q8HR, (Reported) Docusate Sodium* (Docusate Sodium*), 100 MG GT TWICE A DAY, (Reported) Ipratropium/Albuterol Sulfate (DuoNeb 0.5-3(2.5)mg/3ml), 3 ML HHN Q4HR, (Reported) Levetiracetam (Keppra), 750 MG GT TWICE A DAY, (Reported) Levothyroxine Sodium* (Levothyroxine Sodium*), 75 MCG GT DAILY, (Reported) Multivitamin With Minerals (Multivitamins With Minerals*), 1 TAB GT DAILY, (Repo rted) Valproate Sodium (Valproic Acid), 500 MG GT DAILY, (Reported) Vitamin D (Vitamin D3), 1,000 UNITS GT DAILY, (Reported) Scheduled PRN Acetaminophen 160MG/5ML* (Acetaminophen*), 20 ML GT DAILY PRN for For Pain, (Reported) Patient History Limited by: medical condition History Provided By: Medical Record, PMD Healthcare decision maker Resuscitation status Advanced Directive on File Past Medical/Surgical History Past Medical/Surgical History: (1) Respiratory distress (2) Encephalopathy chronic (3) Dysphagia (4) Down's syndrome (5) Sepsis (6) Acute respiratory failure (7) Pneumonia (8) Trisomy 21, Down syndrome (9) LEANN (acute kidney injury) (10) Bacteremia (11) Hypokalemia (12) Anemia (13) Diarrhea (14) Hypernatremia (15) Pneumothorax (16) Pneumothorax, right (17) Cardiac arrest (18) ARDS (adult respiratory distress syndrome) (19) Septic shock (20) HCAP (healthcare-associated pneumonia) (21) Respiratory failure requiring intubation (22) Seizure disorder (23) Hypothyroidism Review of Systems ROS Narrative unable to obtain given medical condition Physical Exam General Appearance: mild distress Lines, tubes and drains: peripheral, PICC, endotracheal tube, other HEENT: normocephalic, atraumatic, anicteric, mucous membranes moist Neck: supple, normal inspection Respiratory/Chest: decreased breath sounds, on vent Cardiovascular/Chest: normal peripheral pulses, normal rate, regular rhythm Abdomen: soft, no organomegaly, no mass, other Extremities: non-tender, normal inspection, no calf tenderness, normal capillary refill Skin Exam: warm/dry Neurologic: unresponsiveness Last 24 Hour Vital Signs Date Time Temp Pulse Resp B/P (MAP) Pulse Ox O2 Delivery O2 Flow Rate FiO2 07/08/20 13:00 48 24 130/60 (83) 95 07/08/20 12:00 60 07/08/20 12:00 46 24 152/68 (96) 96 07/08/20 12:00 Mechanical Ventilator Mechanical Ventilator Mechanical Ventilator 07/08/20 11:35 61 07/08/20 11:06 61 24 60 07/08/20 11:00 52 21 142/93 (109) 94 07/08/20 10:00 49 26 140/75 (96) 95 07/08/20 09:00 63 24 117/69 (85) 96 07/08/20 08:00 60 07/08/20 08:00 98.3 53 27 141/72 (95) 96 07/08/20 08:00 Mechanical Ventilator Mechanical Ventilator Mechanical Ventilator 07/08/20 07:41 59 07/08/20 07:11 45 24 60 07/08/20 07:00 54 25 125/76 (92) 97 07/08/20 06:00 55 25 125/73 (90) 96 07/08/20 05:00 64 27 100/87 (91) 98 07/08/20 04:00 60 07/08/20 04:00 Mechanical Ventilator Mechanical Ventilator Mechanical Ventilator 07/08/20 04:00 60 07/08/20 04:00 98.0 51 20 113/66 (82) 85 07/08/20 03:14 69 24 60 07/08/20 03:00 46 18 124/59 (80) 07/08/20 02:00 53 20 129/69 (89) 93 07/08/20 01:00 72 23 137/74 (95) 93 07/08/20 00:00 58 07/08/20 00:00 Mechanical Ventilator Mechanical Ventilator Mechanical Ventilator 07/08/20 00:00 98.6 56 30 108/71 (83) 95 07/08/20 00:00 60 07/07/20 23:00 67 29 117/57 (77) 99 07/07/20 22:55 52 24 60 07/07/20 22:00 70 23 133/49 (77) 98 07/07/20 21:00 50 24 122/79 (93) 97 07/07/20 20:00 98.5 68 25 126/51 (76) 97 07/07/20 20:00 54 07/07/20 20:00 60 07/07/20 20:00 Mechanical Ventilator Mechanical Ventilator Mechanical Ventilator 07/07/20 19:30 54 24 60 07/07/20 19:00 61 20 99/51 (67) 99 07/07/20 18:00 57 21 95/66 (76) 98 07/07/20 17:00 66 28 102/57 (72) 96 07/07/20 16:00 Mechanical Ventilator Mechanical Ventilator Mechanical Ventilator 07/07/20 16:00 60 07/07/20 16:00 98.0 55 18 129/55 (79) 95 07/07/20 15:25 51 07/07/20 15:03 65 24 60 07/07/20 15:00 55 24 121/76 (91) 96 07/07/20 14:00 53 20 99/55 (70) 98 Intake and Output 07/07/20 07/08/20 19:00 07:00 Intake Total 800 ml 700 ml Output Total 540 ml 540 ml Balance 260 ml 160 ml Free Water 200 ml IV Total 100 ml Tube Feeding 600 ml 500 ml Other 100 ml Output Urine Total 530 ml 540 ml Chest Tube Drainage Total 10 ml # Bowel Movements 2 3 Laboratory Tests Test 07/07/20 17:25 07/07/20 20:28 07/07/20 23:30 07/08/20 04:20 POC Whole Blood Glucose 102 MG/DL (74-106) Pending Pending Sodium Level 147 MMOL/L (136-145) H Potassium Level 3.8 MMOL/L (3.5-5.1) Chloride Level 113 MMOL/L (98-107) H Carbon Dioxide Level 28 MMOL/L (21-32) Anion Gap 6 mmol/L (5-15) Blood Urea Nitrogen 20 mg/dL (7-18) H Creatinine 0.7 MG/DL (0.55-1.30) Estimat Glomerular Filtration Rate > 60 mL/min (>60) Glucose Level 144 MG/DL (74-106) H Calcium Level 7.6 MG/DL (8.5-10.1) L Phosphorus Level 2.3 MG/DL (2.5-4.9) L Magnesium Level 1.8 MG/DL (1.8-2.4) Total Bilirubin 0.7 MG/DL (0.2-1.0) Aspartate Amino Transf (AST/SGOT) 23 U/L (15-37) Alanine Aminotransferase (ALT/SGPT) 37 U/L (12-78) Alkaline Phosphatase 66 U/L (46-116) Total Protein 5.3 G/DL (6.4-8.2) L Albumin 1.4 G/DL (3.4-5.0) L Globulin 3.9 g/dL Albumin/Globulin Ratio 0.4 (1.0-2.7) L Test 07/08/20 05:51 07/08/20 08:41 07/08/20 13:10 POC Whole Blood Glucose 157 MG/DL (74-106) H Pending 133 MG/DL (74-106) H Height (Feet): 5 Height (Inches): 3.00 Weight (Pounds): 172 Medications Current Medications Medications (Trade) Dose Ordered Sig/Katy Route PRN Reason Start Time Stop Time Status Last Admin Dose Admin Acetaminophen (Tylenol) 650 mg Q4H PRN GT For Pain 07/01/20 17:15 07/31/20 17:14 07/07/20 17:33 Chlorhexidine Gluconate (Alla-Hex 2%) 1 applic DAILY@1999 TOPIC 06/08/20 20:00 09/06/20 19:59 07/07/20 20:34 Clotrimazole (Lotrimin) 1 applic Q12HR TOPIC 06/07/20 13:00 09/05/20 12:59 07/08/20 08:49 Dextrose (Dextrose 50%) 25 ml Q30M PRN IV Hypoglycemia 06/03/20 11:30 08/28/20 11:29 Dextrose (Dextrose 50%) 50 ml Q30M PRN IV Hypoglycemia 06/03/20 11:30 08/28/20 11:29 Hydrocortisone (Solu-CORTEF) 50 mg EVERY 8 HOURS IV 07/06/20 06:00 10/04/20 05:59 07/08/20 05:56 Insulin Aspart (NovoLOG) Q6HR SUBQ 06/26/20 12:00 09/24/20 11:59 07/08/20 05:58 Insulin Detemir (Levemir) 10 units Q12HR SUBQ 06/26/20 10:00 09/24/20 09:59 07/08/20 08:51 Levothyroxine Sodium (Synthroid) 75 mcg DAILY@0630 GT 07/08/20 06:30 08/07/20 06:29 07/08/20 05:58 Loperamide HCl (Imodium) 2 mg Q6H PRN NG Diarrhea 06/24/20 10:30 07/24/20 10:29 07/01/20 11:41 Pantoprazole (Protonix) 40 mg EVERY 12 HOURS IVP 07/06/20 21:00 08/05/20 20:59 07/08/20 08:49 Potassium Chloride (K-Dur) 40 meq EVERY 12 HOURS GT 07/04/20 21:00 09/26/20 12:14 07/08/20 08:49 Assessment/Plan Problem List: (1) Respiratory distress Assessment & Plan: Respiratory insufficiency requiring prolonged ventilator support. Patient on minimal vent settings right now currently in stable but unfortunately not safe for extubation. Tracheostomy is indicated recommended. I discussed case with pulmonology team ICU team medical teams. Patient unable to make decisions and her current condition and given her history. The care team has been contacted and will be reviewed for evaluation and consideration of the tracheostomy. If consented I think it is reasonable for tracheostomy given patient's current CODE STATUS care plan and goals of care. Extubation his current status is potentially high risk for reintubation emergency complication. We will plan for tracheostomy if consent is obtained. Thank you for let me participate patient's care will follow with recommendations ICD Codes: R06.03 - Acute respiratory distress SNOMED: 063328478 (2) Encephalopathy chronic ICD Codes: G93.49 - Other encephalopathy SNOMED: 95666420 (3) Dysphagia ICD Codes: R13.10 - Dysphagia, unspecified SNOMED: 21513705, 920062311 (4) Down's syndrome ICD Codes: Q90.9 - Down syndrome, unspecified SNOMED: 79887996, 979853329 (5) Sepsis ICD Codes: A41.9 - Sepsis, unspecified organism SNOMED: 41886608 (6) Acute respiratory failure ICD Codes: J96.00 - Acute respiratory failure, unspecified whether with hypoxia or hypercapnia SNOMED: 72467845 (7) Pneumonia ICD Codes: J18.9 - Pneumonia, unspecified organism SNOMED: 468104642 (8) Trisomy 21, Down syndrome ICD Codes: Q90.9 - Down syndrome, unspecified SNOMED: 25277667 (9) LEANN (acute kidney injury) ICD Codes: N17.9 - Acute kidney failure, unspecified SNOMED: 3136863, 21005922 (10) Bacteremia ICD Codes: R78.81 - Bacteremia SNOMED: 1465748 (11) Hypokalemia ICD Codes: E87.6 - Hypokalemia SNOMED: 07483041 (12) Anemia ICD Codes: D64.9 - Anemia, unspecified SNOMED: 786796463 (13) Diarrhea ICD Codes: R19.7 - Diarrhea, unspecified SNOMED: 89892997 (14) Hypernatremia ICD Codes: E87.0 - Hyperosmolality and hypernatremia SNOMED: 821281964 (15) Pneumothorax ICD Codes: J93.9 - Pneumothorax, unspecified SNOMED: 34822215 (16) Pneumothorax, right ICD Codes: J93.9 - Pneumothorax, unspecified SNOMED: 964600928 (17) Cardiac arrest ICD Codes: I46.9 - Cardiac arrest, cause unspecified SNOMED: 764852519 (18) ARDS (adult respiratory distress syndrome) ICD Codes: J80 - Acute respiratory distress syndrome SNOMED: 89349516, 09025941 (19) Septic shock ICD Codes: A41.9 - Sepsis, unspecified organism; R65.21 - Severe sepsis with septic shock SNOMED: 86659776, 00629294 (20) HCAP (healthcare-associated pneumonia) ICD Codes: J18.9 - Pneumonia, unspecified organism SNOMED: 949645919, 885094460 (21) Respiratory failure requiring intubation ICD Codes: J96.90 - Respiratory failure, unspecified, unspecified whether with hypoxia or hypercapnia; R65.21 - Severe sepsis with septic shock SNOMED: 789555135, 98732016 (22) Seizure disorder ICD Codes: G40.909 - Epilepsy, unspecified, not intractable, without status epilepticus SNOMED: 246792396 (23) Hypothyroidism ICD Codes: E03.9 - Hypothyroidism, unspecified SNOMED: 23746964 Mark Gordon Jul 08, 2020 13:35
--- NOTE | 2020-07-08 14:30 | NUR ---
NURSE NOTES: Bedbath provided by 2 staff. No acute distress.
--- NOTE | 2020-07-08 16:30 | NUR ---
NURSE NOTES: Oral care provided.
--- NOTE | 2020-07-08 16:36 | NUR ---
CASE MANAGEMENT: REVIEW 07/08/2020 SI;SEPSIS. PNA. 98.3 53 27 141/72 96% ON MECH VENT FIO2 60 H/H 9.5/27.6 PLT 115 PLT 148 BUN 23 BG 194 CA+ 7.3 ALB 1.3 IS:IV SOLU-CORTEF TID LEVEMIR SQ BID IV PROTONIX BID K-DUR GT BID ICU PLAN OF CARE: MAINTAIN CHEST TUBE BIOETHIC MEETING CONSENT FOR TRACHEOSTOMY
--- NOTE | 2020-07-08 16:37 | Nephrology Progress Note ---
Assessment/Plan Problem List: (1) LEANN (acute kidney injury) (2) Respiratory failure requiring intubation (3) Down's syndrome (4) Seizure disorder (5) Hypothyroidism Assessment Acute renal failure, likely due to hypotension Acute respiratory distress, hypoxia Seizure disorder Hypothyroidism Down syndrome Full code Fluid challenge with IV fluids and albumin Midodrine for BP above 100 systolic Check TSH level Check Correct level Monitor renal parameters Urine studies Per orders Plan July 08: Labs reviewed. Electrolyte abnormalities addressed. Heart rate remains bradycardic. Continue per cardiology. Continue to monitor renal parameters and electrolytes. July 07: Labs reviewed. Electrolyte abnormalities addressed and replaced. Medication list reviewed. Heart rate remains mid 50s. Continue as is. July 06: On ventilator. Full code. Heart rate low. Will discontinue Midodrin. Continue to rest. Electrolytes within normal limit. Discussed with RN. July 05: Remains intubated. Full code. No plan for tracheostomy yet. Labs reviewed. All acceptable. Continue same management July 04: Labs reviewed. Discussed with RN. Potassium and phosphorus and magnesium replacement ordered. Hemoglobin 9.5. Patient remains full code. Continue per consultants. July 03: Lab reviewed. Renal parameters stable. Full code. Intubated. Electrolyte abnormalities addressed and replacement done. July 02: Lab reviewed. Renal parameters stable. Full code. Intubated. Has right side chest tube. Continue per consultants. July 01: Lab reviewed. Renal parameters stable. Full code. Has right chest tube. Planning process for tracheostomy. Defer to chest and general surgeon. June 30: Labs reviewed. Renal parameters stable. Remains full code. Remains on ventilator. Due for tracheostomy tomorrow. Continue per consultants. Patient has a right chest tube in place at this time. June 29: Labs reviewed. Electrolyte imbalances addressed and supplemented. Remains full code and on ventilator. Continue to monitor renal parameters. Continue per consultants. June 28: Labs reviewed. Serum potassium again low today. Potassium supplement IV and through GT given. Patient remains full code and is on ventilator. Continue per consultants. Continue to monitor electrolytes and renal parameters. June 27: Labs reviewed. Abnormal electrolyte addressed. Remains full code. Remains vented. June 26: Day 27 of hospitalization. Full code. Labs reviewed. Hemoglobin down to 7.5. Electrolyte abnormalities addressed and corrections ordered. Continue to monitor renal parameters. Continue per consultants. Start on Levemir for blood sugar management. Questioning continuation of hydrocortisone? June 25: Labs reviewed. Potassium, phosphorus, hemoglobin, are all low. Potassium and phosphorus IV replacement given. Continue to monitor electrolytes and CBC. Patient remains full code. June 24: Lab reviewed. Low phosphorus low magnesium and low potassium was addressed. Hemoglobin drifting lower. Continue per consultants. Patient remains full code. June 23: Labs reviewed. Patient continues to be on ventilator. D5W for high sodium and also potassium chloride intravenously as supplement given. Hemoglobin 8.4. Continue to monitor electrolytes and renal parameters. June 22: Labs reviewed. Low potassium and high sodium noted. Hemoglobin 8.1 stable. Aim to correct abnormal electrolyte. Continue rest. Will give 2 boluses of D5W 500 cc. June 21: Lab reviewed. Abnormal electrolytes noted and addressed. June 20: Labs reviewed. Potassium supplement given. Patient remains full code. Continue per consultants. June 19: Lab reviewed. Electrolyte abnormalities addressed. Continue per pulmonary and ID. June 18: Lab reviewed. Status unchanged. Serum sodium 151 unchanged. Stable from renal standpoint of view. June 17: Labs reviewed. Status quo. D5W 500 cc IV ordered. Continue to monitor renal parameters. June 16: Status quo. Labs reviewed. Overall condition unchanged. Patient was transfused and hemoglobin higher. Continue current management. Patient remains full code. June 15: Status quo. Overall condition poor. Very low albumin. Edematous. Hypotensive. Hemoglobin lower. Anemia work-up ordered. I favor transfusion 2 units of packed RBCs. Patient remains full code. I favor supportive care only. Will discuss. June 14: Electrolyte abnormalities addressed. Serum creatinine lower. Continue per current management. June 13: Status unchanged. Lab reviewed. Serum potassium 2.7. IV potassium chloride ordered. Serum creatinine low at 1.6 stable. Blood pressure 90s systolic June 12: Status quo. Labs reviewed. Renal parameters stable. Serum creatinine down to 1.6. Medication list reviewed. Continues to be on midodrine. Continue per consultants. June 11: Status quo. Labs reviewed. Electrolytes adjusted. Serum creatinine down to 1.8. Continue per consultants. June 10: Status quo. Labs reviewed. Phosphorus supplement IV given. Serum creatinine 2. Continue per consultants. June 09: Requires less pressors. Albumin bolus given. 1 dose of Lasix IV ordered as the patient severely edematous. Patient serum albumin is very low. Continue per consultants. June 08: Continues to be intubated. Labs reviewed. Serum creatinine 1.9 unchanged. Blood pressure more stable. Off 1 of the pressors. Continue to monitor renal parameters. Continue per consultants. Patient now on hydrocortisone 100 mg every 8 hours. Will decrease IV fluid. Normal saline down to 50 cc an hour. June 07: Intubated. Labs reviewed. Creatinine 1.9 unchanged. Continue same treatment plan. Per consultants. Overall poor prognosis since the patient remains on pressors and her pulmonary status is worsening. June 06: Remains intubated. Labs reviewed. Creatinine 1.9. Blood pressure systolic 90s. Continue per consultants. June 05: Remains intubated. Labs reviewed. Serum creatinine lower to 2. Vancomycin level lower. Remains hypotensive on pressors. Will increase midodrine to 10 mg every 8 hours. Continue per consultants. Continue to monitor renal parameters. June 04: Patient now in ICU. Intubated. On pressors. Labs reviewed. Will increase midodrine. Aim to keep blood pressure over 100 systolic. Will give albumin bolus. Will check vancomycin level which was elevated when checked previously on June 01. Will monitor renal parameters. Continue per consultants. Subjective ROS Limited/Unobtainable: Yes Objective Objective Last 24 Hour Vital Signs Date Time Temp Pulse Resp B/P (MAP) Pulse Ox O2 Delivery O2 Flow Rate FiO2 07/08/20 16:00 52 22 104/88 (93) 94 07/08/20 16:00 Mechanical Ventilator Mechanical Ventilator Mechanical Ventilator 07/08/20 16:00 60 07/08/20 15:41 52 07/08/20 15:00 43 24 129/57 (81) 95 07/08/20 14:00 43 25 118/59 (78) 94 07/08/20 13:00 48 24 130/60 (83) 95 07/08/20 12:00 60 07/08/20 12:00 46 24 152/68 (96) 96 07/08/20 12:00 Mechanical Ventilator Mechanical Ventilator Mechanical Ventilator 07/08/20 11:35 61 07/08/20 11:06 61 24 60 07/08/20 11:00 52 21 142/93 (109) 94 07/08/20 10:00 49 26 140/75 (96) 95 07/08/20 09:00 63 24 117/69 (85) 96 07/08/20 08:00 60 07/08/20 08:00 98.3 53 27 141/72 (95) 96 07/08/20 08:00 Mechanical Ventilator Mechanical Ventilator Mechanical Ventilator 07/08/20 07:41 59 07/08/20 07:11 45 24 60 07/08/20 07:00 54 25 125/76 (92) 97 07/08/20 06:00 55 25 125/73 (90) 96 07/08/20 05:00 64 27 100/87 (91) 98 07/08/20 04:00 60 07/08/20 04:00 Mechanical Ventilator Mechanical Ventilator Mechanical Ventilator 07/08/20 04:00 60 07/08/20 04:00 98.0 51 20 113/66 (82) 85 07/08/20 03:14 69 24 60 07/08/20 03:00 46 18 124/59 (80) 07/08/20 02:00 53 20 129/69 (89) 93 07/08/20 01:00 72 23 137/74 (95) 93 07/08/20 00:00 58 07/08/20 00:00 Mechanical Ventilator Mechanical Ventilator Mechanical Ventilator 07/08/20 00:00 98.6 56 30 108/71 (83) 95 07/08/20 00:00 60 07/07/20 23:00 67 29 117/57 (77) 99 07/07/20 22:55 52 24 60 07/07/20 22:00 70 23 133/49 (77) 98 07/07/20 21:00 50 24 122/79 (93) 97 07/07/20 20:00 98.5 68 25 126/51 (76) 97 07/07/20 20:00 54 07/07/20 20:00 60 07/07/20 20:00 Mechanical Ventilator Mechanical Ventilator Mechanical Ventilator 07/07/20 19:30 54 24 60 07/07/20 19:00 61 20 99/51 (67) 99 07/07/20 18:00 57 21 95/66 (76) 98 07/07/20 17:00 66 28 102/57 (72) 96 Intake and Output 07/07/20 07/08/20 19:00 07:00 Intake Total 800 ml 700 ml Output Total 540 ml 540 ml Balance 260 ml 160 ml Free Water 200 ml IV Total 100 ml Tube Feeding 600 ml 500 ml Other 100 ml Output Urine Total 530 ml 540 ml Chest Tube Drainage Total 10 ml # Bowel Movements 2 3 Laboratory Tests 07/07/20 17:25: POC Whole Blood Glucose 102 07/07/20 20:28: POC Whole Blood Glucose [Pending] 07/07/20 23:30: POC Whole Blood Glucose [Pending] 07/08/20 04:20: Sodium Level 147H, Potassium Level 3.8, Chloride Level 113H, Carbon Dioxide Level 28, Anion Gap 6, Blood Urea Nitrogen 20H, Creatinine 0.7, Estimat Glomerul ar Filtration Rate > 60, Glucose Level 144H, Calcium Level 7.6L, Phosphorus Level 2.3L, Magnesium Level 1.8, Total Bilirubin 0.7, Aspartate Amino Transf (AST/SGOT) 23, Alanine Aminotransferase (ALT/SGPT) 37, Alkaline Phosphatase 66, Total Protein 5.3L, Albumin 1.4L, Globulin 3.9, Albumin/Globulin Ratio 0.4L 07/08/20 05:51: POC Whole Blood Glucose 157H 07/08/20 08:41: POC Whole Blood Glucose [Pending] 07/08/20 13:10: POC Whole Blood Glucose 133H Height (Feet): 5 Height (Inches): 3.00 Weight (Pounds): 172 General Appearance: no apparent distress EENT: other - Intubated on ventilator Cardiovascular: bradycardia Respiratory/Chest: decreased breath sounds Abdomen: distended Keron Pitt MD Jul 08, 2020 16:37
--- NOTE | 2020-07-08 17:53 | Cardiology Progress Note ---
Assessment/Plan Assessment/Plan sepsis respiratory failure ards renal insuf bacteremia abn cardiac enzyme due to demand sinus rafael stable thrombocytopenia resolved hypernatremia pneumothorax now s/p chest tube vent support abx may be mobilizing her fluids ct in place tsh seems fine remains off pressor still at this time hr inthe 60's s no sig pauses on tele tele personally reviewed awiat public guardian for code status adn soncent for trach d/w rn Subjective ROS Limited/Unobtainable: Yes Subjective on a vent not communicative AWAKE Objective Last 24 Hour Vital Signs Date Time Temp Pulse Resp B/P (MAP) Pulse Ox O2 Delivery O2 Flow Rate FiO2 07/08/20 17:00 68 32 125/83 (97) 93 07/08/20 16:00 52 22 104/88 (93) 94 07/08/20 16:00 Mechanical Ventilator Mechanical Ventilator Mechanical Ventilator 07/08/20 16:00 60 07/08/20 15:41 52 07/08/20 15:15 54 24 60 07/08/20 15:00 43 24 129/57 (81) 95 07/08/20 14:00 43 25 118/59 (78) 94 07/08/20 13:00 48 24 130/60 (83) 95 07/08/20 12:00 60 07/08/20 12:00 46 24 152/68 (96) 96 07/08/20 12:00 Mechanical Ventilator Mechanical Ventilator Mechanical Ventilator 07/08/20 11:35 61 07/08/20 11:06 61 24 60 07/08/20 11:00 52 21 142/93 (109) 94 07/08/20 10:00 49 26 140/75 (96) 95 07/08/20 09:00 63 24 117/69 (85) 96 07/08/20 08:00 60 07/08/20 08:00 98.3 53 27 141/72 (95) 96 07/08/20 08:00 Mechanical Ventilator Mechanical Ventilator Mechanical Ventilator 07/08/20 07:41 59 07/08/20 07:11 45 24 60 07/08/20 07:00 54 25 125/76 (92) 97 07/08/20 06:00 55 25 125/73 (90) 96 07/08/20 05:00 64 27 100/87 (91) 98 07/08/20 04:00 60 07/08/20 04:00 Mechanical Ventilator Mechanical Ventilator Mechanical Ventilator 07/08/20 04:00 60 07/08/20 04:00 98.0 51 20 113/66 (82) 85 07/08/20 03:14 69 24 60 07/08/20 03:00 46 18 124/59 (80) 07/08/20 02:00 53 20 129/69 (89) 93 07/08/20 01:00 72 23 137/74 (95) 93 07/08/20 00:00 58 07/08/20 00:00 Mechanical Ventilator Mechanical Ventilator Mechanical Ventilator 07/08/20 00:00 98.6 56 30 108/71 (83) 95 07/08/20 00:00 60 07/07/20 23:00 67 29 117/57 (77) 99 07/07/20 22:55 52 24 60 07/07/20 22:00 70 23 133/49 (77) 98 07/07/20 21:00 50 24 122/79 (93) 97 07/07/20 20:00 98.5 68 25 126/51 (76) 97 07/07/20 20:00 54 07/07/20 20:00 60 07/07/20 20:00 Mechanical Ventilator Mechanical Ventilator Mechanical Ventilator 07/07/20 19:30 54 24 60 07/07/20 19:00 61 20 99/51 (67) 99 07/07/20 18:00 57 21 95/66 (76) 98 General Appearance: no apparent distress, alert, patient on isolation, isolation precautions Cardiovascular: normal rate, bradycardia Respiratory/Chest: crackles/rales, rhonchi - bilaterally Abdomen: normal bowel sounds, non tender, soft Extremities: moderate edema Intake and Output 07/07/20 07/08/20 19:00 07:00 Intake Total 800 ml 700 ml Output Total 540 ml 540 ml Balance 260 ml 160 ml Free Water 200 ml IV Total 100 ml Tube Feeding 600 ml 500 ml Other 100 ml Output Urine Total 530 ml 540 ml Chest Tube Drainage Total 10 ml # Bowel Movements 2 3 Laboratory Tests Test 07/07/20 20:28 07/07/20 23:30 07/08/20 04:20 07/08/20 05:51 POC Whole Blood Glucose Pending Pending 157 MG/DL (74-106) H Sodium Level 147 MMOL/L (136-145) H Potassium Level 3.8 MMOL/L (3.5-5.1) Chloride Level 113 MMOL/L (98-107) H Carbon Dioxide Level 28 MMOL/L (21-32) Anion Gap 6 mmol/L (5-15) Blood Urea Nitrogen 20 mg/dL (7-18) H Creatinine 0.7 MG/DL (0.55-1.30) Estimat Glomerular Filtration Rate > 60 mL/min (>60) Glucose Level 144 MG/DL (74-106) H Calcium Level 7.6 MG/DL (8.5-10.1) L Phosphorus Level 2.3 MG/DL (2.5-4.9) L Magnesium Level 1.8 MG/DL (1.8-2.4) Total Bilirubin 0.7 MG/DL (0.2-1.0) Aspartate Amino Transf (AST/SGOT) 23 U/L (15-37) Alanine Aminotransferase (ALT/SGPT) 37 U/L (12-78) Alkaline Phosphatase 66 U/L (46-116) Total Protein 5.3 G/DL (6.4-8.2) L Albumin 1.4 G/DL (3.4-5.0) L Globulin 3.9 g/dL Albumin/Globulin Ratio 0.4 (1.0-2.7) L Test 07/08/20 08:41 07/08/20 13:10 POC Whole Blood Glucose Pending 133 MG/DL (74-106) H Josue Pantoja MD Jul 08, 2020 17:53
--- NOTE | 2020-07-08 18:00 | NUR ---
NURSE NOTES: Dr. Pantoja at bedside. Patient remains sinus bradycardia in monitoring specialist. Heart rate of 51. No new order from Dr. Pantoja at this time. Will continue to monitor.
--- NOTE | 2020-07-08 19:20 | NUR ---
NURSE HAND-OFF REPORT: Latest Vital Signs: Temperature 98.9 , Pulse 43 , B/P 137 /73 , Respiratory Rate 24 , O2 SAT 94 , Mechanical Ventilator, O2 Flow Rate 15.0 . Vital Sign Comment: right chest tube connected to low continuous suction. EKG Rhythm: Sinus Bradycardia Rhythm change?: N Latest Osorio Fall Score: 70 Fall Risk: High Risk Safety Measures: Call light Within Reach, Bed Alarm Zone 1, Side Rails Side Rails x3, Bed position Low and Locked. Fall Precautions: Yellow Socks Door Sign Patient Fall Education Contact isolation endorsed. Report given to Nilsa Doty RN.
--- NOTE | 2020-07-08 19:43 | NUR ---
NURSE NOTES: received report from carol rn pt orally intubated -vent o2 sat 100% no acute resp distress noted chest tube -marie-vac cont suction with serous drainage tolerating tube no residual dressing dry and intact reposition and intact
[2020-07-08] MEDS: Dyna-Hex 2% Top Sol 2oz TOPIC SCH (20:55)
--- NOTE | 2020-07-08 22:00 | NUR ---
NURSE NOTES: reposition anr suction no acte resp distress
[2020-07-09] VITALS (25 sets, daily range): BP systolic 92–136; BP diastolic 50–104
--- NOTE | 2020-07-09 | NUR ---
NURSE NOTES: bs [id number] insulin coverage given as order
--- NOTE | 2020-07-09 02:00 | NUR ---
NURSE NOTES: condition unchange
--- NOTE | 2020-07-09 04:00 | NUR ---
NURSE NOTES: reposition and suction
[2020-07-09 04:58] LABS: BASOPHILS % (AUTO) 0.3 % (0.0-2.0); EOSINOPHILS % (AUTO) 0.1 % (0.0-3.0); HEMATOCRIT 25.7 % (37.0-47.0); HEMOGLOBIN 8.6 G/DL (12.0-16.0); LYMPHOCYTES % (AUTO) 17.9 % (20.0-45.0); MEAN CORPUSCULAR VOLUME 93 FL (80-99); MONOCYTES % (AUTO) 5.1 % (1.0-10.0); NEUTROPHILS % (AUTO) 76.6 % (45.0-75.0); PLATELET COUNT 125 K/UL (150-450); RED BLOOD COUNT 2.77 M/UL (4.20-5.40); RED CELL DISTRIBUTION WIDTH 16.4 % (11.6-14.8); WHITE BLOOD COUNT 6.5 K/UL (4.8-10.8)
[2020-07-09 05:24] LABS: ANION GAP 5 mmol/L (5-15); BLOOD UREA NITROGEN 20 mg/dL (7-18); CALCIUM 7.2 MG/DL (8.5-10.1); CARBON DIOXIDE 28 MMOL/L (21-32); CHLORIDE 112 MMOL/L (98-107); CREATININE 0.6 MG/DL (0.55-1.30); POTASSIUM 3.2 MMOL/L (3.5-5.1); SODIUM 145 MMOL/L (136-145)
[2020-07-09] MEDS: Hydrocortisone 100mg Inj IV SCH ×3 (05:57→21:15)
[2020-07-09] MEDS: NovoLOG Insulin Flexpen SUBQ SCH ×4 (05:59→23:38)
--- NOTE | 2020-07-09 06:00 | NUR ---
NURSE NOTES: complete bed bath done [id number] insulin coverage given as order
--- NOTE | 2020-07-09 07:34 | NUR ---
NURSE HAND-OFF REPORT: Latest Vital Signs: Temperature 98.8 , Pulse 59 , B/P 123 /54 , Respiratory Rate 25 , O2 SAT 96 , Mechanical Ventilator, O2 Flow Rate 15.0 . Vital Sign Comment: EKG Rhythm: Sinus Bradycardia Rhythm change?: N Notified?: Marce Oliveros MD Response: No New Orders Received Latest Osorio Fall Score: 70 Fall Risk: High Risk Safety Measures: Call light Within Reach, Bed Alarm Zone 1, Side Rails Side Rails x3, Bed position Low and Locked. Fall Precautions: Yellow Socks Door Sign Patient Fall Education Report given to .
--- NOTE | 2020-07-09 07:45 | NUR ---
NURSE NOTES: LATE ENTRY: REPORT RECEIVED FROM Marybeth SALAZARNSamantha A/O TO SELF. PT AWAKENS TO NAME, FOLLOWS SIMPLE COMMANDS. 3MM BRISK BILATERAL. SB ON MONITOR,. BP STABLE. PT INTUBATED, ETT 7.5, 22CM AT LIP. AC 24, VT 500, FI02 60%. GAG PRESENT. SECRETIONS THIN, WHITE. BILATERAL RHONCHI, LOWER LOBES DIMINISHED. HOB >30, ASPIRATION PRECAUTIONS. NO RESPIRATORY DISTRESS NOTED. ABDOMEN ROUND, NONTENDER. BOWEL SOUNDS HYPERACTIVE. G TUBE NOTED. NO RESIDUALS. TUBE FEEDING A.F 1.2, RUNNING AT 50ML/HR. 100 ML FLUSH FREE WATER. NO BM AT THIS TIME. LANG IN PLACE DRAINING YELLOW URINE. DRAINING BELOW BLADDER. SKIN - SEE ASSESSMENT. BILATERAL RADIAL PULSES WEAK. TRACE EDEMA NOTED ON FEET. NO JVD. CONTACT ISOLATION. BED LOCKED IN LOW POSITION. KAL CONTINUE TO MONITOR PT.
[2020-07-09] MEDS: Pantoprazole Inj IVP SCH ×2 (08:59→20:11)
--- NOTE | 2020-07-09 09:06 | NUR ---
NURSE NOTES: bg 150, am medication administered. pt in no acute distress.
--- NOTE | 2020-07-09 09:22 | Nephrology Progress Note ---
Assessment/Plan Problem List: (1) LEANN (acute kidney injury) (2) Respiratory failure requiring intubation (3) Down's syndrome (4) Seizure disorder (5) Hypothyroidism Assessment Acute renal failure, likely due to hypotension Acute respiratory distress, hypoxia Seizure disorder Hypothyroidism Down syndrome Full code Fluid challenge with IV fluids and albumin Midodrine for BP above 100 systolic Check TSH level Check Correct level Monitor renal parameters Urine studies Per orders Plan July 09: Intubated on ventilator. Labs reviewed. Potassium supplement given. Remains bradycardic. Continue per consultants. July 08: Labs reviewed. Electrolyte abnormalities addressed. Heart rate remains bradycardic. Continue per cardiology. Continue to monitor renal parameters and electrolytes. July 07: Labs reviewed. Electrolyte abnormalities addressed and replaced. Medication list reviewed. Heart rate remains mid 50s. Continue as is. July 06: On ventilator. Full code. Heart rate low. Will discontinue Midodrin. Continue to rest. Electrolytes within normal limit. Discussed with RN. July 05: Remains intubated. Full code. No plan for tracheostomy yet. Labs reviewed. All acceptable. Continue same management July 04: Labs reviewed. Discussed with RN. Potassium and phosphorus and magnesium replacement ordered. Hemoglobin 9.5. Patient remains full code. Continue per consultants. July 03: Lab reviewed. Renal parameters stable. Full code. Intubated. Electrolyte abnormalities addressed and replacement done. July 02: Lab reviewed. Renal parameters stable. Full code. Intubated. Has right side chest tube. Continue per consultants. July 01: Lab reviewed. Renal parameters stable. Full code. Has right chest tube. Planning process for tracheostomy. Defer to chest and general surgeon. June 30: Labs reviewed. Renal parameters stable. Remains full code. Remains on ventilator. Due for tracheostomy tomorrow. Continue per consultants. Patient has a right chest tube in place at this time. June 29: Labs reviewed. Electrolyte imbalances addressed and supplemented. Remains full code and on ventilator. Continue to monitor renal parameters. Continue per consultants. June 28: Labs reviewed. Serum potassium again low today. Potassium supplement IV and through GT given. Patient remains full code and is on ventilator. Continue per consultants. Continue to monitor electrolytes and renal parameters. June 27: Labs reviewed. Abnormal electrolyte addressed. Remains full code. Remains vented. June 26: Day 27 of hospitalization. Full code. Labs reviewed. Hemoglobin down to 7.5. Electrolyte abnormalities addressed and corrections ordered. Continue to monitor renal parameters. Continue per consultants. Start on Levemir for blood sugar management. Questioning continuation of hydrocortisone? June 25: Labs reviewed. Potassium, phosphorus, hemoglobin, are all low. Potassium and phosphorus IV replacement given. Continue to monitor electrolytes and CBC. Patient remains full code. June 24: Lab reviewed. Low phosphorus low magnesium and low potassium was addressed. Hemoglobin drifting lower. Continue per consultants. Patient remains full code. June 23: Labs reviewed. Patient continues to be on ventilator. D5W for high sodium and also potassium chloride intravenously as supplement given. Hemoglobin 8.4. Continue to monitor electrolytes and renal parameters. June 22: Labs reviewed. Low potassium and high sodium noted. Hemoglobin 8.1 stable. Aim to correct abnormal electrolyte. Continue rest. Will give 2 boluses of D5W 500 cc. June 21: Lab reviewed. Abnormal electrolytes noted and addressed. June 20: Labs reviewed. Potassium supplement given. Patient remains full code. Continue per consultants. June 19: Lab reviewed. Electrolyte abnormalities addressed. Continue per pulmonary and ID. June 18: Lab reviewed. Status unchanged. Serum sodium 151 unchanged. Stable from renal standpoint of view. June 17: Labs reviewed. Status quo. D5W 500 cc IV ordered. Continue to monitor renal parameters. June 16: Status quo. Labs reviewed. Overall condition unchanged. Patient was transfused and hemoglobin higher. Continue current management. Patient remains full code. June 15: Status quo. Overall condition poor. Very low albumin. Edematous. Hypotensive. Hemoglobin lower. Anemia work-up ordered. I favor transfusion 2 units of packed RBCs. Patient remains full code. I favor supportive care only. Will discuss. June 14: Electrolyte abnormalities addressed. Serum creatinine lower. Continue per current management. June 13: Status unchanged. Lab reviewed. Serum potassium 2.7. IV potassium chloride ordered. Serum creatinine low at 1.6 stable. Blood pressure 90s systolic June 12: Status quo. Labs reviewed. Renal parameters stable. Serum creatinine down to 1.6. Medication list reviewed. Continues to be on midodrine. Continue per consultants. June 11: Status quo. Labs reviewed. Electrolytes adjusted. Serum creatinine down to 1.8. Continue per consultants. June 10: Status quo. Labs reviewed. Phosphorus supplement IV given. Serum creatinine 2. Continue per consultants. June 09: Requires less pressors. Albumin bolus given. 1 dose of Lasix IV ordered as the patient severely edematous. Patient serum albumin is very low. Continue per consultants. June 08: Continues to be intubated. Labs reviewed. Serum creatinine 1.9 unchanged. Blood pressure more stable. Off 1 of the pressors. Continue to monitor renal parameters. Continue per consultants. Patient now on hydrocortisone 100 mg every 8 hours. Will decrease IV fluid. Normal saline down to 50 cc an hour. June 07: Intubated. Labs reviewed. Creatinine 1.9 unchanged. Continue same treatment plan. Per consultants. Overall poor prognosis since the patient remains on pressors and her pulmonary status is worsening. June 06: Remains intubated. Labs reviewed. Creatinine 1.9. Blood pressure systolic 90s. Continue per consultants. June 05: Remains intubated. Labs reviewed. Serum creatinine lower to 2. Vancomycin level lower. Remains hypotensive on pressors. Will increase midodrine to 10 mg every 8 hours. Continue per consultants. Continue to monitor renal parameters. June 04: Patient now in ICU. Intubated. On pressors. Labs reviewed. Will increase midodrine. Aim to keep blood pressure over 100 systolic. Will give albumin bolus. Will check vancomycin level which was elevated when checked previously on June 01. Will monitor renal parameters. Continue per consultants. Subjective ROS Limited/Unobtainable: Yes Objective Objective Last 24 Hour Vital Signs Date Time Temp Pulse Resp B/P (MAP) Pulse Ox O2 Delivery O2 Flow Rate FiO2 07/09/20 07:06 61 24 60 07/09/20 06:00 59 25 123/54 (77) 96 07/09/20 05:00 45 25 100/54 (69) 96 07/09/20 04:00 98.8 48 24 99/56 (70) 96 07/09/20 04:00 60 07/09/20 04:00 Mechanical Ventilator Mechanical Ventilator Mechanical Ventilator 07/09/20 04:00 48 07/09/20 03:30 61 24 60 07/09/20 03:00 66 23 118/72 (87) 97 07/09/20 02:00 60 21 136/78 (97) 96 07/09/20 01:00 63 16 133/80 (97) 94 07/09/20 00:00 Mechanical Ventilator Mechanical Ventilator Mechanical Ventilator 10/1/20 00:00 60 07/09/20 00:00 50 07/09/20 00:00 63 19 122/74 (90) 95 07/08/20 23:00 62 19 109/70 (83) 95 07/08/20 22:49 62 24 60 07/08/20 22:00 46 28 114/77 (89) 94 07/08/20 21:00 56 23 125/61 (82) 94 07/08/20 20:00 60 07/08/20 20:00 98.5 58 25 132/76 (94) 93 07/08/20 20:00 Mechanical Ventilator Mechanical Ventilator Mechanical Ventilator 07/08/20 20:00 48 07/08/20 19:15 43 24 60 07/08/20 19:00 52 23 137/73 (94) 94 07/08/20 18:00 58 27 135/75 (95) 92 07/08/20 17:00 68 32 125/83 (97) 93 07/08/20 16:00 98.9 52 22 104/88 (93) 94 07/08/20 16:00 Mechanical Ventilator Mechanical Ventilator Mechanical Ventilator 07/08/20 16:00 60 07/08/20 15:41 52 07/08/20 15:15 54 24 60 07/08/20 15:00 43 24 129/57 (81) 95 07/08/20 14:00 43 25 118/59 (78) 94 07/08/20 13:00 48 24 130/60 (83) 95 07/08/20 12:00 60 07/08/20 12:00 46 24 152/68 (96) 96 07/08/20 12:00 Mechanical Ventilator Mechanical Ventilator Mechanical Ventilator 07/08/20 11:35 61 07/08/20 11:06 61 24 60 07/08/20 11:00 52 21 142/93 (109) 94 07/08/20 10:00 49 26 140/75 (96) 95 Intake and Output0 07/08/20 07/09/20 19:00 07:00 Intake Total 650 ml 750 ml Output Total 530 ml 565 ml Balance 120 ml 185 ml Free Water 200 ml Tube Feeding 550 ml 550 ml Other 100 ml Output Urine Total 500 ml 540 ml Chest Tube Drainage Total 30 ml 25 ml # Bowel Movements 2 Laboratory Tests 07/08/20 13:10: POC Whole Blood Glucose 133H 07/08/20 18:14: POC Whole Blood Glucose 92 07/08/20 20:53: POC Whole Blood Glucose [Pending] 07/08/20 23:49: POC Whole Blood Glucose 153H 07/09/20 03:50: White Blood Count 6.5, Red Blood Count 2.77L, Hemoglobin 8.6L, Hematocrit 25.7L, Mean Corpuscular Volume 93, Mean Corpuscular Hemoglobin 31.1H, Mean Corpuscular Hemoglobin Concent 33.4, Red Cell Distribution Width 16.4H, Platelet Count 125L , Mean Platelet Volume 8.5, Neutrophils (%) (Auto) 76.6H, Lymphocytes (%) (Auto) 17.9L, Monocytes (%) (Auto) 5.1, Eosinophils (%) (Auto) 0.1, Basophils (%) (Auto) 0.3, Sodium Level 145, Potassium Level 3.2L, Chloride Level 112H, Carbon Dioxide Level 28, Anion Gap 5, Blood Urea Nitrogen 20H, Creatinine 0.6, Estimat Glomerular Filtration Rate > 60, Glucose Level 169H, Calcium Level 7.2L Height (Feet): 5 Height (Inches): 3.00 Weight (Pounds): 172 General Appearance: no apparent distress EENT: other - On ventilator Cardiovascular: bradycardia Respiratory/Chest: decreased breath sounds Abdomen: distended Keron Pitt MD Jul 09, 2020 09:22
[2020-07-09] MEDS: Levemir Flexpen SUBQ SCH ×2 (10:00→20:13)
--- NOTE | 2020-07-09 10:00 | NUR ---
NURSE NOTES: LATE ENTRY: ABHAY 10UNITS SUBCUT. PT RESTING IN BED. NO DISTRESS NOTED.
--- NOTE | 2020-07-09 10:25 | Pulmonolgy Critical Care Note ---
Critical Care - Asmt/Plan Problems: (1) Acute respiratory failure (2) Pneumothorax (3) Bacteremia (4) Pneumonia (5) Sepsis (6) HCAP (healthcare-associated pneumonia) (7) Seizure disorder (8) Down's syndrome (9) Trisomy 21, Down syndrome Respiratory: adjust tidal volume, monitor respiratory rate, adjust FIO2, CXR Cardiac: stop pressors Renal: F/U I&O, keep IV fluid, check electrolytes Infectious Disease: continue antibiotics Gastrointestinal: continue feedings/current rate Endocrine: continue sliding scale insulin Hematologic: transfuse if hgb<8.5 Neurologic: keep patient comfortable Affect: PRN 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 Care - Objective Last 24 Hour Vital Signs Date Time Temp Pulse Resp B/P (MAP) Pulse Ox O2 Delivery O2 Flow Rate FiO2 07/09/20 07:06 61 24 60 07/09/20 06:00 59 25 123/54 (77) 96 07/09/20 05:00 45 25 100/54 (69) 96 07/09/20 04:00 98.8 48 24 99/56 (70) 96 07/09/20 04:00 60 07/09/20 04:00 Mechanical Ventilator Mechanical Ventilator Mechanical Ventilator 07/09/20 04:00 48 07/09/20 03:30 61 24 60 07/09/20 03:00 66 23 118/72 (87) 97 07/09/20 02:00 60 21 136/78 (97) 96 07/09/20 01:00 63 16 133/80 (97) 94 07/09/20 00:00 Mechanical Ventilator Mechanical Ventilator Mechanical Ventilator 07/09/20 00:00 60 07/09/20 00:00 50 07/09/20 00:00 63 19 122/74 (90) 95 07/08/20 23:00 62 19 109/70 (83) 95 07/08/20 22:49 62 24 60 07/08/20 22:00 46 28 114/77 (89) 94 07/08/20 21:00 56 23 125/61 (82) 94 07/08/20 20:00 60 07/08/20 20:00 98.5 58 25 132/76 (94) 93 07/08/20 20:00 Mechanical Ventilator Mechanical Ventilator Mechanical Ventilator 07/08/20 20:00 48 07/08/20 19:15 43 24 60 07/08/20 19:00 52 23 137/73 (94) 94 07/08/20 18:00 58 27 135/75 (95) 92 07/08/20 17:00 68 32 125/83 (97) 93 07/08/20 16:00 98.9 52 22 104/88 (93) 94 07/08/20 16:00 Mechanical Ventilator Mechanical Ventilator Mechanical Ventilator 07/08/20 16:00 60 07/08/20 15:41 52 07/08/20 15:15 54 24 60 07/08/20 15:00 43 24 129/57 (81) 95 07/08/20 14:00 43 25 118/59 (78) 94 07/08/20 13:00 48 24 130/60 (83) 95 07/08/20 12:00 60 07/08/20 12:00 46 24 152/68 (96) 96 07/08/20 12:00 Mechanical Ventilator Mechanical Ventilator Mechanical Ventilator 07/08/20 11:35 61 07/08/20 11:06 61 24 60 07/08/20 11:00 52 21 142/93 (109) 94 Status: awake Condition: critical HEENT: atraumatic, normocephalic Neck: full ROM Lungs: chest wall tender Heart: HR/BP stable Abdomen: soft Extremities: edema Decubiti: location Accucheck: 150 Critical Care - Subjective ROS Limited/Unobtainable: Yes Condition: critical EKG Rhythm: Sinus Rhythm FI02: 60 Vent Support Breath Rate: 24 Vent Support Mode: AC Vent Tidal Volume: 500 Sputum Amount: Small PEEP: 0.0 PIP: 34 Tube Feeding Amount: 50 I&O: Intake and Output 07/08/20 07/09/20 19:00 07:00 Intake Total 650 ml 750 ml Output Total 530 ml 565 ml Balance 120 ml 185 ml Free Water 200 ml Tube Feeding 550 ml 550 ml Other 100 ml Output Urine Total 500 ml 540 ml Chest Tube Drainage Total 30 ml 25 ml # Bowel Movements 2 CXR: lungs reexpanded, ET tube in place ET-Tube: 7.5 ET Position: 22 Labs: Laboratory Tests Test 07/08/20 13:10 07/08/20 18:14 07/08/20 20:53 07/08/20 23:49 POC Whole Blood Glucose 133 MG/DL (74-106) H 92 MG/DL (74-106) Pending 153 MG/DL (74-106) H Test 07/09/20 03:50 White Blood Count 6.5 K/UL (4.8-10.8) Red Blood Count 2.77 M/UL (4.20-5.40) L Hemoglobin 8.6 G/DL (12.0-16.0) L Hematocrit 25.7 % (37.0-47.0) L Mean Corpuscular Volume 93 FL (80-99) Mean Corpuscular Hemoglobin 31.1 PG (27.0-31.0) H Mean Corpuscular Hemoglobin Concent 33.4 G/DL (32.0-36.0) Red Cell Distribution Width 16.4 % (11.6-14.8) H Platelet Count 125 K/UL (150-450) L Mean Platelet Volume 8.5 FL (6.5-10.1) Neutrophils (%) (Auto) 76.6 % (45.0-75.0) H Lymphocytes (%) (Auto) 17.9 % (20.0-45.0) L Monocytes (%) (Auto) 5.1 % (1.0-10.0) Eosinophils (%) (Auto) 0.1 % (0.0-3.0) Basophils (%) (Auto) 0.3 % (0.0-2.0) Sodium Level 145 MMOL/L (136-145) Potassium Level 3.2 MMOL/L (3.5-5.1) L Chloride Level 112 MMOL/L (98-107) H Carbon Dioxide Level 28 MMOL/L (21-32) Anion Gap 5 mmol/L (5-15) Blood Urea Nitrogen 20 mg/dL (7-18) H Creatinine 0.6 MG/DL (0.55-1.30) Estimat Glomerular Filtration Rate > 60 mL/min (>60) Glucose Level 169 MG/DL (74-106) H Calcium Level 7.2 MG/DL (8.5-10.1) Elayne Hancock MD Jul 09, 2020 10:25
--- NOTE | 2020-07-09 10:37 | Infectious Diseases Prog Note ---
Assessment/Plan ASSESSMENT: sp code blue 06/03 Septic Shock; SP Fever, recurrent- low grade Leukocytosis; persistent/fluctuating, SP -06/27 Bcx NTD -06/17 u/a no pyuria -06/16 Bcx NTD (Picc line) -06/14 Bcx NTD ucx Neg sp cx C. parapsilopsis -06/03 u/a no pyuria Pneumonia.- COVID 19 neg x3 Acute hypoxic resp failure on VM> NRB 15l 100%; hypoxic on ABG> now VDRF 06/03- Fio2 80% >100% 06/05> 60% 06/09 >80% 06/10 >95% 06/18 >90% 06/22 >60% 06/23 R tension Pneumothroax sp CT 06/29 -06/30 CXR: Interim complete reexpansion of right lung without evidence of residual pneumothorax. Bilateral diffuse and extensive infiltrates. Markedly improved chest wall subcutaneous emphysema -06/29 CXR: Interim reexpansion of previously demonstrated right pneumothorax, status post large bore chest tube placement. -06/22 CXR: Improved aeration of both lungs. -06/13 CXR:Small bilateral pleural effusions with minor edema. Stable edema with mild worsening in the degree of pleural effusion on the right. -06/09 sp cx Neg 06/08 CXR: Extensive bilateral interstitial and airspace disease appears similar to the prior exam. Moderate to large bilateral pleural effusions appear unchanged. 06/05 CXR: Increasing left upper lobe dense consolidation and likely increasing bilateral pleural fluid. Persistent diffuse dense consolidation el sewhere -06/03 sp cx normal resp marie -06/02 CXR: Increased atelectasis of the right lung, since prior e xam of 3 days earlier. New or increased right pleural effusion. Increased left basilar consolidation and/or pleural fluid -COVID Rapid PCR neg 05/31, 05/31, 06/03 -05/30 spc x Group G strep -05/30 CXR: Reduced lung volumes. Patchy bilateral predominantly interstitial pulmonary opacities. Could be from edema and/or pneumonia. There is a broader differential. -legionella ag urine, blasto ab, Histo ab, HIV ab screen, FRANCIS, ANCA neg Persistent, high grade bacteremia- -05/30 Bcx 4/4 sets S. haemolyticus; 05/31 Bcx 3/4 S/ epi; 06/04 Bcx 1.4 S. warnerri; 06/06 Bcx Neg -2d echo: no vegetaions seen ua/ wbc 10-15, nit neg, leuk +1; ucx Neg LEANN; -supratherapeutic vanco levels -Seizure disorder. - Hypothyroidism. - Down syndrome. History of PEG tube placement. [place] resident PLAN: Monitor off abx as she is stable 06/22 SP Meropenem #18, IV Amikacin #7 06/12/20 SP Daptomycin #11 06/10 SP MIcafungin #7, Linezolid #5 06/05 SP Azithromycin #7/7 06/03 SP Ceftriaxone #2 06/02 SP IV Vancomycin #4, Zosyn #4 05/30 SP Cefepime x1, Flagyl x1 - Monitor CBC, BMP. .f/u cx - COVID neg x3 - Monitor chest x-ray. - Monitor the patient's clinical course and labs. Based on those, we will do further recommendation. -f/u Fungitell, asp ag, flow cytometry -poor prognosis Thank you, Dr. Allred, for allowing me to participate in the care of this patient. I will follow the patient with you at this hospitalization. Discussed with RN Subjective Allergies: Coded Allergies: No Known Allergies (Unverified , 10/16/18) Afebrile On Vent 60% O2 No leukocytosis Objective Last 24 Hour Vital Signs Date Time Temp Pulse Resp B/P (MAP) Pulse Ox O2 Delivery O2 Flow Rate FiO2 07/09/20 07:06 61 24 60 07/09/20 06:00 59 25 123/54 (77) 96 07/09/20 05:00 45 25 100/54 (69) 96 07/09/20 04:00 98.8 48 24 99/56 (70) 96 07/09/20 04:00 60 07/09/20 04:00 Mechanical Ventilator Mechanical Ventilator Mechanical Ventilator 07/09/20 04:00 48 07/09/20 03:30 61 24 60 07/09/20 03:00 66 23 118/72 (87) 97 07/09/20 02:00 60 21 136/78 (97) 96 07/09/20 01:00 63 16 133/80 (97) 94 07/09/20 00:00 Mechanical Ventilator Mechanical Ventilator Mechanical Ventilator 07/09/20 00:00 60 07/09/20 00:00 50 07/09/20 00:00 63 19 122/74 (90) 95 07/08/20 23:00 62 19 109/70 (83) 95 07/08/20 22:49 62 24 60 07/08/20 22:00 46 28 114/77 (89) 94 07/08/20 21:00 56 23 125/61 (82) 94 07/08/20 20:00 60 07/08/20 20:00 98.5 58 25 132/76 (94) 93 07/08/20 20:00 Mechanical Ventilator Mechanical Ventilator Mechanical Ventilator 07/08/20 20:00 48 07/08/20 19:15 43 24 60 07/08/20 19:00 52 23 137/73 (94) 94 07/08/20 18:00 58 27 135/75 (95) 92 07/08/20 17:00 68 32 125/83 (97) 93 07/08/20 16:00 98.9 52 22 104/88 (93) 94 07/08/20 16:00 Mechanical Ventilator Mechanical Ventilator Mechanical Ventilator 07/08/20 16:00 60 07/08/20 15:41 52 07/08/20 15:15 54 24 60 07/08/20 15:00 43 24 129/57 (81) 95 07/08/20 14:00 43 25 118/59 (78) 94 07/08/20 13:00 48 24 130/60 (83) 95 07/08/20 12:00 60 07/08/20 12:00 46 24 152/68 (96) 96 07/08/20 12:00 Mechanical Ventilator Mechanical Ventilator Mechanical Ventilator 07/08/20 11:35 61 07/08/20 11:06 61 24 60 07/08/20 11:00 52 21 142/93 (109) 94 Height (Feet): 5 Height (Inches): 3.00 Weight (Pounds): 172 GEN: On Vent HEENT: NCAT, Intubated, Pulm: Equal chest rise and fall B/L, No accessory muscle use ABD: Soft, ND SKIN: Exposed skin with no rash, Normal in color Laboratory Tests Test 07/08/20 13:10 07/08/20 18:14 07/08/20 20:53 07/08/20 23:49 POC Whole Blood Glucose 133 MG/DL (74-106) H 92 MG/DL (74-106) Pending 153 MG/DL (74-106) H Test 07/09/20 03:50 White Blood Count 6.5 K/UL (4.8-10.8) Red Blood Count 2.77 M/UL (4.20-5.40) L Hemoglobin 8.6 G/DL (12.0-16.0) L Hematocrit 25.7 % (37.0-47.0) L Mean Corpuscular Volume 93 FL (80-99) Mean Corpuscular Hemoglobin 31.1 PG (27.0-31.0) H Mean Corpuscular Hemoglobin Concent 33.4 G/DL (32.0-36.0) Red Cell Distribution Width 16.4 % (11.6-14.8) H Platelet Count 125 K/UL (150-450) L Mean Platelet Volume 8.5 FL (6.5-10.1) Neutrophils (%) (Auto) 76.6 % (45.0-75.0) H Lymphocytes (%) (Auto) 17.9 % (20.0-45.0) L Monocytes (%) (Auto) 5.1 % (1.0-10.0) Eosinophils (%) (Auto) 0.1 % (0.0-3.0) Basophils (%) (Auto) 0.3 % (0.0-2.0) Sodium Level 145 MMOL/L (136-145) Potassium Level 3.2 MMOL/L (3.5-5.1) L Chloride Level 112 MMOL/L (98-107) H Carbon Dioxide Level 28 MMOL/L (21-32) Anion Gap 5 mmol/L (5-15) Blood Urea Nitrogen 20 mg/dL (7-18) H Creatinine 0.6 MG/DL (0.55-1.30) Estimat Glomerular Filtration Rate > 60 mL/min (>60) Glucose Level 169 MG/DL (74-106) H Calcium Level 7.2 MG/DL (8.5-10.1) L Current Medications Medications (Trade) Dose Ordered Sig/Katy Route PRN Reason Start Time Stop Time Status Last Admin Dose Admin Acetaminophen (Tylenol) 650 mg Q4H PRN GT For Pain 07/01/20 17:15 07/31/20 17:14 07/07/20 17:33 Chlorhexidine Gluconate (Alla-Hex 2%) 1 applic DAILY@1999 TOPIC 06/08/20 20:00 09/06/20 19:59 07/08/20 20:55 Clotrimazole (Lotrimin) 1 applic Q12HR TOPIC 06/07/20 13:00 09/05/20 12:59 07/09/20 09:01 Dextrose (Dextrose 50%) 25 ml Q30M PRN IV Hypoglycemia 06/03/20 11:30 08/28/20 11:29 Dextrose (Dextrose 50%) 50 ml Q30M PRN IV Hypoglycemia 06/03/20 11:30 08/28/20 11:29 Hydrocortisone (Solu-CORTEF) 50 mg EVERY 8 HOURS IV 07/06/20 06:00 10/04/20 05:59 07/09/20 05:57 Insulin Aspart (NovoLOG) Q6HR SUBQ 06/26/20 12:00 09/24/20 11:59 07/09/20 05:59 Insulin Detemir (Levemir) 10 units Q12HR SUBQ 06/26/20 10:00 09/24/20 09:59 07/09/20 10:00 Levothyroxine Sodium (Synthroid) 75 mcg DAILY@0630 GT 07/08/20 06:30 08/07/20 06:29 07/09/20 05:58 Loperamide HCl (Imodium) 2 mg Q6H PRN NG Diarrhea 06/24/20 10:30 07/24/20 10:29 07/01/20 11:41 Pantoprazole (Protonix) 40 mg EVERY 12 HOURS IVP 07/06/20 21:00 08/05/20 20:59 07/09/20 08:59 Potassium Chloride 100 ml @ 50 mls/hr ONCE ONCE IVPB 07/09/20 09:30 07/09/20 11:29 07/09/20 10:02 Potassium Chloride (K-Dur) 40 meq EVERY 12 HOURS GT 07/04/20 21:00 09/26/20 12:14 07/09/20 09:00 Chencho Corley MD Jul 09, 2020 10:37
[2020-07-09] MEDS ORDERED: Tubing IV Secondary IV ONE (11:37)
--- NOTE | 2020-07-09 12:00 | NUR ---
NURSE NOTES: LATE ENTRY: PT AWAKENS TO NAME. 3MM BRISK BILATERAL. SB ON MONITOR,. BP STABLE. PT INTUBATED, ETT 7.5, 22CM AT LIP. AC 24, VT 500, FI02 60%. SECRETIONS THIN, WHITE. NO RESPIRATORY DISTRESS NOTED. ABDOMEN ROUND, NONTENDER. BOWEL SOUNDS HYPERACTIVE. G TUBE NOTED. NO RESIDUALS. TUBE FEEDING A.F 1.2, RUNNING AT 50ML/HR. 100 ML FLUSH FREE WATER. ONE WATERY BM, LARGE. LANG DRAINING YELLOW URINE.BILATERAL RADIAL PULSES WEAK. TRACE EDEMA NOTED ON FEET. CONTACT ISOLATION. BED LOCKED IN LOW POSITION. WILL CONTINUE TO MONITOR PT.
--- NOTE | 2020-07-09 12:35 | Surgery Progress Note ---
Surgery Progress Note Subjective Additional Comments pending consent for trach no n/v Objective Last 24 Hour Vital Signs Date Time Temp Pulse Resp B/P (MAP) Pulse Ox O2 Delivery O2 Flow Rate FiO2 07/09/20 11:00 57 22 122/72 (89) 96 07/09/20 10:00 47 26 118/58 (78) 95 07/09/20 09:00 59 21 114/51 (72) 96 07/09/20 08:00 74 30 132/65 (87) 99 07/09/20 08:00 Mechanical Ventilator Mechanical Ventilator Mechanical Ventilator 07/09/20 07:06 61 24 60 07/09/20 07:00 98.0 56 23 120/68 (85) 94 07/09/20 06:00 59 25 123/54 (77) 96 07/09/20 05:00 45 25 100/54 (69) 96 07/09/20 04:00 98.8 48 24 99/56 (70) 96 07/09/20 04:00 60 07/09/20 04:00 Mechanical Ventilator Mechanical Ventilator Mechanical Ventilator 07/09/20 04:00 48 07/09/20 03:30 61 24 60 07/09/20 03:00 66 23 118/72 (87) 97 07/09/20 02:00 60 21 136/78 (97) 96 07/09/20 01:00 63 16 133/80 (97) 94 07/09/20 00:00 Mechanical Ventilator Mechanical Ventilator Mechanical Ventilator 07/09/20 00:00 60 07/09/20 00:00 50 07/09/20 00:00 63 19 122/74 (90) 95 07/08/20 23:00 62 19 109/70 (83) 95 07/08/20 22:49 62 24 60 07/08/20 22:00 46 28 114/77 (89) 94 07/08/20 21:00 56 23 125/61 (82) 94 07/08/20 20:00 60 07/08/20 20:00 98.5 58 25 132/76 (94) 93 07/08/20 20:00 Mechanical Ventilator Mechanical Ventilator Mechanical Ventilator 07/08/20 20:00 48 07/08/20 19:15 43 24 60 07/08/20 19:00 52 23 137/73 (94) 94 07/08/20 18:00 58 27 135/75 (95) 92 07/08/20 17:00 68 32 125/83 (97) 93 07/08/20 16:00 98.9 52 22 104/88 (93) 94 07/08/20 16:00 Mechanical Ventilator Mechanical Ventilator Mechanical Ventilator 07/08/20 16:00 60 07/08/20 15:41 52 07/08/20 15:15 54 24 60 07/08/20 15:00 43 24 129/57 (81) 95 07/08/20 14:00 43 25 118/59 (78) 94 07/08/20 13:00 48 24 130/60 (83) 95 I&O Intake and Output 07/08/20 07/09/20 18:59 06:59 Intake Total 600 ml 800 ml Output Total 495 ml 640 ml Balance 105 ml 160 ml Free Water 200 ml Tube Feeding 500 ml 600 ml Other 100 ml Output Urine Total 495 ml 585 ml Chest Tube Drainage Total 55 ml # Bowel Movements 2 Dressing: other Wound: other Cardiovascular: RSR Respiratory: decreased breath sounds Abdomen: soft, non-tender, present bowel sounds Extremities: edema, no tenderness, no cyanosis Laboratory Tests Test 07/08/20 13:10 07/08/20 18:14 07/08/20 20:53 07/08/20 23:49 POC Whole Blood Glucose 133 MG/DL (74-106) H 92 MG/DL (74-106) Pending 153 MG/DL (74-106) H Test 07/09/20 03:50 White Blood Count 6.5 K/UL (4.8-10.8) Red Blood Count 2.77 M/UL (4.20-5.40) L Hemoglobin 8.6 G/DL (12.0-16.0) L Hematocrit 25.7 % (37.0-47.0) L Mean Corpuscular Volume 93 FL (80-99) Mean Corpuscular Hemoglobin 31.1 PG (27.0-31.0) H Mean Corpuscular Hemoglobin Concent 33.4 G/DL (32.0-36.0) Red Cell Distribution Width 16.4 % (11.6-14.8) H Platelet Count 125 K/UL (150-450) L Mean Platelet Volume 8.5 FL (6.5-10.1) Neutrophils (%) (Auto) 76.6 % (45.0-75.0) H Lymphocytes (%) (Auto) 17.9 % (20.0-45.0) L Monocytes (%) (Auto) 5.1 % (1.0-10.0) Eosinophils (%) (Auto) 0.1 % (0.0-3.0) Basophils (%) (Auto) 0.3 % (0.0-2.0) Sodium Level 145 MMOL/L (136-145) Potassium Level 3.2 MMOL/L (3.5-5.1) L Chloride Level 112 MMOL/L (98-107) H Carbon Dioxide Level 28 MMOL/L (21-32) Anion Gap 5 mmol/L (5-15) Blood Urea Nitrogen 20 mg/dL (7-18) H Creatinine 0.6 MG/DL (0.55-1.30) Estimat Glomerular Filtration Rate > 60 mL/min (>60) Glucose Level 169 MG/DL (74-106) H Calcium Level 7.2 MG/DL (8.5-10.1) L Plan Problems: (1) Respiratory distress Assessment & Plan: Respiratory insufficiency requiring prolonged ventilator support. Patient on minimal vent settings right now currently in stable but unfortunately not safe for extubation. Tracheostomy is indicated recommended. I discussed case with pulmonology team ICU team medical teams. Patient unable to make decisions and her current condition and given her history. The care team has been contacted and will be reviewed for evaluation and consideration of the tracheostomy. If consented I think it is reasonable for tracheostomy given patient's current CODE STATUS care plan and goals of care. Extubation his curr ent status is potentially high risk for reintubation emergency complication. We will plan for tracheostomy if consent is obtained. Thank you for let me participate patient's care will follow with recommendations (2) Encephalopathy chronic (3) Dysphagia (4) Down's syndrome (5) Sepsis (6) Acute respiratory failure (7) Pneumonia (8) Trisomy 21, Down syndrome (9) LEANN (acute kidney injury) (10) Bacteremia (11) Hypokalemia (12) Anemia (13) Diarrhea (14) Hypernatremia (15) Pneumothorax (16) Pneumothorax, right (17) Cardiac arrest (18) ARDS (adult respiratory distress syndrome) (19) Septic shock (20) HCAP (healthcare-associated pneumonia) (21) Respiratory failure requiring intubation (22) Seizure disorder (23) Hypothyroidism Mark Gordon Jul 09, 2020 12:35
--- NOTE | 2020-07-09 13:17 | General Progress Note ---
Progress Note Progress Note Bioethics Committee Meeting July 09, 2020 The Committee met and included social media community manager, medical records director, worship director, Hiro York M.D and myself. Dr. Allred has asked for our opinion re a no code order. She is under the auspices of the [facility] for medical decision making. While seriously ill with pneumonia and intubated since late May her condition is currently improving with improved FI02 and no off pressors. She is awake and appears responsive. The Committee was of the opinion that despite the fact that at her age she is close to the longevity limit for Down's syndrome at the moment her code status should remain full code. Should her condition deteriorate we will be glad to reassess. Goyo Rowley M.D. Bioethics Chair Goyo Rowley MD Jul 09, 2020 13:17
--- NOTE | 2020-07-09 14:10 | General Progress Note ---
Subjective ROS Limited/Unobtainable: No Allergies: Coded Allergies: No Known Allergies (Unverified , 10/16/18) Objective Last 24 Hour Vital Signs Date Time Temp Pulse Resp B/P (MAP) Pulse Ox O2 Delivery O2 Flow Rate FiO2 07/09/20 13:00 98.9 48 24 114/50 (71) 94 07/09/20 12:00 58 24 128/54 (78) 93 07/09/20 12:00 58 07/09/20 12:00 Mechanical Ventilator Mechanical Ventilator Mechanical Ventilator 07/09/20 12:00 60 07/09/20 11:00 57 22 122/72 (89) 96 07/09/20 10:00 47 26 118/58 (78) 95 07/09/20 09:00 59 21 114/51 (72) 96 07/09/20 08:00 74 30 132/65 (87) 99 07/09/20 08:00 60 07/09/20 08:00 59 07/09/20 08:00 Mechanical Ventilator Mechanical Ventilator Mechanical Ventilator 07/09/20 07:06 61 24 60 07/09/20 07:00 98.0 56 23 120/68 (85) 94 07/09/20 06:00 59 25 123/54 (77) 96 07/09/20 05:00 45 25 100/54 (69) 96 07/09/20 04:00 98.8 48 24 99/56 (70) 96 07/09/20 04:00 60 07/09/20 04:00 Mechanical Ventilator Mechanical Ventilator Mechanical Ventilator 07/09/20 04:00 48 07/09/20 03:30 61 24 60 07/09/20 03:00 66 23 118/72 (87) 97 07/09/20 02:00 60 21 136/78 (97) 96 07/09/20 01:00 63 16 133/80 (97) 94 07/09/20 00:00 Mechanical Ventilator Mechanical Ventilator Mechanical Ventilator 07/09/20 00:00 60 07/09/20 00:00 50 07/09/20 00:00 63 19 122/74 (90) 95 07/08/20 23:00 62 19 109/70 (83) 95 07/08/20 22:49 62 24 60 07/08/20 22:00 46 28 114/77 (89) 94 07/08/20 21:00 56 23 125/61 (82) 94 07/08/20 20:00 60 07/08/20 20:00 98.5 58 25 132/76 (94) 93 07/08/20 20:00 Mechanical Ventilator Mechanical Ventilator Mechanical Ventilator 07/08/20 20:00 48 07/08/20 19:15 43 24 60 07/08/20 19:00 52 23 137/73 (94) 94 07/08/20 18:00 58 27 135/75 (95) 92 07/08/20 17:00 68 32 125/83 (97) 93 07/08/20 16:00 98.9 52 22 104/88 (93) 94 07/08/20 16:00 Mechanical Ventilator Mechanical Ventilator Mechanical Ventilator 07/08/20 16:00 60 07/08/20 15:41 52 07/08/20 15:15 54 24 60 07/08/20 15:00 43 24 129/57 (81) 95 Intake and Output 07/08/20 07/09/20 19:00 07:00 Intake Total 650 ml 800 ml Output Total 530 ml 610 ml Balance 120 ml 190 ml Free Water 200 ml Tube Feeding 550 ml 600 ml Other 100 ml Output Urine Total 500 ml 585 ml Chest Tube Drainage Total 30 ml 25 ml # Bowel Movements 2 Laboratory Tests 07/08/20 18:14: POC Whole Blood Glucose 92 07/08/20 20:53: POC Whole Blood Glucose [Pending] 07/08/20 23:49: POC Whole Blood Glucose 153H 07/09/20 03:50: White Blood Count 6.5, Red Blood Count 2.77L, Hemoglobin 8.6L, Hematocrit 25.7L, Mean Corpuscular Volume 93, Mean Corpuscular Hemoglobin 31.1H, Mean Corpuscular Hemoglobin Concent 33.4, Red Cell Distribution Width 16.4H, Platelet Count 125L , Mean Platelet Volume 8.5, Neutrophils (%) (Auto) 76.6H, Lymphocytes (%) (Auto) 17.9L, Monocytes (%) (Auto) 5.1, Eosinophils (%) (Auto) 0.1, Basophils (%) (Auto) 0.3, Sodium Level 145, Potassium Level 3.2L, Chloride Level 112H, Carbon Dioxide Level 28, Anion Gap 5, Blood Urea Nitrogen 20H, Creatinine 0.6, Estimat Glomerular Filtration Rate > 60, Glucose Level 169H, Calcium Level 7.2L Height (Feet): 5 Height (Inches): 3.00 Weight (Pounds): 172 General Appearance: no apparent distress EENT: normal ENT inspection Neck: supple Cardiovascular: normal rate Respiratory/Chest: decreased breath sounds Abdomen: normal bowel sounds, non tender, soft Extremities: non-tender Assessment/Plan Status: stable, not improved, unchanged Assessment/Plan: 1. History of Down syndrome. 2. Dysphagia with G-tube. 3. Seizure disorder. 4. Hypothyroidism. 5. LEANN. 6. Pneumonia. 7. Sepsis. fu H&H prn blood transfusion to keep HGB above 7 ppi GTF hold GI procedures for now stool ob + 1/2 Nehemiah Perez MD Jul 09, 2020 14:10
[2020-07-09] MEDS ORDERED: NS 500ML ONE (14:18)
[2020-07-09] MEDS ORDERED: NS 275ml ONE (14:18)
--- NOTE | 2020-07-09 14:49 | NUR ---
SCRAP DROP CRANE OPERATOR NOTE The case was discussed w/ the bioethics committee. The bioethics committee recommends pt remaining full code. Please refer Dr. Rowley's progress note. DWAYNE faxed requested clinicals and bioethics note to [facility] [phone]. DWAYNE will continue to F/U. Addendum: 07/09/20 at 1519 by GAYATHRI RICE DWAYNE confirmed w/ [facility] that she received the packet.
[2020-07-09] MEDS: Acetaminophen 650mg/20.3ml GT PRN (14:56)
--- NOTE | 2020-07-09 14:58 | NUR ---
NURSE NOTES: LATE ENTRY: PER EMAR ADMINISTERED SOLU- CORTEF 1ML IVP 50MG. VIA PICC LINE. PATENT, DRESSING DRY AND INTACT.
--- NOTE | 2020-07-09 16:15 | NUR ---
NURSE NOTES: PROVIDED PAIN RELIEF PRIOR TO DRESSING CHANGE OF ABDOMEN AND CHEST TUBE AREA. PT S/S PAIN 3/10, GRIMACE, SQUIRMING, DIFFICULT TO COMFORT. TYLENOL 650 20.3ML, VIA GT GIVEN.
--- NOTE | 2020-07-09 17:43 | Internal Med Progress Note ---
Subjective Date of Service: Jul 09, 2020 Physician Name Joni Copeland Attending Physician Elayne Allred MD Current Medications Medications (Trade) Dose Ordered Sig/Katy Route PRN Reason Start Time Stop Time Status Last Admin Dose Admin Acetaminophen (Tylenol) 650 mg Q4H PRN GT For Pain 07/01/20 17:15 07/31/20 17:14 07/09/20 14:56 Chlorhexidine Gluconate (Alla-Hex 2%) 1 applic DAILY@2000 TOPIC 06/08/20 20:00 09/06/20 19:59 07/08/20 20:55 Clotrimazole (Lotrimin) 1 applic Q12HR TOPIC 06/07/20 13:00 09/05/20 12:59 07/09/20 09:01 Dextrose (Dextrose 50%) 25 ml Q30M PRN IV Hypoglycemia 06/03/20 11:30 08/28/20 11:29 Dextrose (Dextrose 50%) 50 ml Q30M PRN IV Hypoglycemia 06/03/20 11:30 08/28/20 11:29 Hydrocortisone (Solu-CORTEF) 50 mg EVERY 8 HOURS IV 07/06/20 06:00 10/04/20 05:59 07/09/20 14:56 Insulin Aspart (NovoLOG) Q6HR SUBQ 06/26/20 12:00 09/24/20 11:59 07/09/20 12:09 Insulin Detemir (Levemir) 10 units Q12HR SUBQ 06/26/20 10:00 09/24/20 09:59 07/09/20 10:00 Levothyroxine Sodium (Synthroid) 75 mcg DAILY@0630 GT 07/08/20 06:30 08/07/20 06:29 07/09/20 05:58 Loperamide HCl (Imodium) 2 mg Q6H PRN NG Diarrhea 06/24/20 10:30 07/24/20 10:29 07/01/20 11:41 Pantoprazole (Protonix) 40 mg EVERY 12 HOURS IVP 07/06/20 21:00 08/05/20 20:59 07/09/20 08:59 Potassium Chloride (K-Dur) 40 meq EVERY 12 HOURS GT 07/04/20 21:00 09/26/20 12:14 07/09/20 09:00 Allergies: Coded Allergies: No Known Allergies (Unverified , 10/16/18) ROS Limited/Unobtainable: Yes Subjective 59 YO F with Down's syndrome admitted with hypoxia. Now sepsis and pneumonia. Cover for Int Arturo-DR Hawk. ICU. Intubated and sedated Objective Last Vital Signs Date Time Temp Pulse Resp B/P (MAP) Pulse Ox O2 Delivery O2 Flow Rate FiO2 07/09/20 17:00 46 27 112/71 (85) 95 07/09/20 15:23 60 07/09/20 13:00 98.9 07/09/20 12:00 Mechanical Ventilator Mechanical Ventilator Mechanical Ventilator Laboratory Tests Test 07/08/20 18:14 07/08/20 20:53 07/08/20 23:49 07/09/20 03:50 POC Whole Blood Glucose 92 MG/DL (74-106) Pending 153 MG/DL (74-106) H White Blood Count 6.5 K/UL (4.8-10.8) Red Blood Count 2.77 M/UL (4.20-5.40) L Hemoglobin 8.6 G/DL (12.0-16.0) L Hematocrit 25.7 % (37.0-47.0) L Mean Corpuscular Volume 93 FL (80-99) Mean Corpuscular Hemoglobin 31.1 PG (27.0-31.0) H Mean Corpuscular Hemoglobin Concent 33.4 G/DL (32.0-36.0) Red Cell Distribution Width 16.4 % (11.6-14.8) H Platelet Count 125 K/UL (150-450) L Mean Platelet Volume 8.5 FL (6.5-10.1) Neutrophils (%) (Auto) 76.6 % (45.0-75.0) H Lymphocytes (%) (Auto) 17.9 % (20.0-45.0) L Monocytes (%) (Auto) 5.1 % (1.0-10.0) Eosinophils (%) (Auto) 0.1 % (0.0-3.0) Basophils (%) (Auto) 0.3 % (0.0-2.0) Sodium Level 145 MMOL/L (136-145) Potassium Level 3.2 MMOL/L (3.5-5.1) L Chloride Level 112 MMOL/L (98-107) H Carbon Dioxide Level 28 MMOL/L (21-32) Anion Gap 5 mmol/L (5-15) Blood Urea Nitrogen 20 mg/dL (7-18) H Creatinine 0.6 MG/DL (0.55-1.30) Estimat Glomerular Filtration Rate > 60 mL/min (>60) Glucose Level 169 MG/DL (74-106) H Calcium Level 7.2 MG/DL (8.5-10.1) L Intake and Output 07/08/20 07/09/20 19:00 07:00 Intake Total 650 ml 800 ml Output Total 530 ml 610 ml Balance 120 ml 190 ml Free Water 200 ml Tube Feeding 550 ml 600 ml Other 100 ml Output Urine Total 500 ml 585 ml Chest Tube Drainage Total 30 ml 25 ml # Bowel Movements 2 Objective General Appearance: WD/WN, no apparent distress, alert EENT: PERRL/EOMI, normal ENT inspection Neck: non-tender, normal alignment, supple, normal inspection Cardiovascular: normal peripheral pulses, normal rate, regular rhythm, no gallop/murmur, no JVD Respiratory/Chest: Mech vent; decreased breath sounds, crackles/rales, rhonchi - bilaterally, expiratory wheezing Abdomen: normal bowel sounds, non tender, soft, no organomegaly, no mass Extremities: normal range of motion Neurologic: ultrasonic seaming machine operator II-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 S/P amikacin per ID=Dr Camejo. Pulmonary/Critical care=DR Allred. COVID NEG (2) Sepsis Assessment & Plan: Staph haemolyticus. S/P amikacin per ID=Dr Camejo (3) Down's syndrome (4) Dysphagia Assessment & Plan: S/P PEG (5) Seizure disorder Assessment & Plan: Continue keppra and depakote (6) Hypothyroidism Assessment & Plan: Continue synthroid (7) Acute respiratory failure Assessment & Plan: Pulmonary = Dr Allred; mech vent (8) Pneumothorax, right Assessment & Plan: Continue chest tube per pulmonary (9) Cardiac arrest Assessment & Plan: 06/03/20-see cardiology note=Joni Lord MD Jul 09, 2020 17:43
--- NOTE | 2020-07-09 19:10 | NUR ---
NURSE NOTES pt report received from Demian Nobles RN. pt remains stable resting in bed. pt is alert and oriented times 1, able to respond to name. pt is on digital experience manager showing NSR, no acute cardiac distress noted. pt is trach vented sating 98% O2. no acute resp distress noted. pt bed is low, locked, armed, call light within reach, bed rails up times 3. will follow plan of care.
--- NOTE | 2020-07-09 19:25 | NUR ---
HAND-OFF: Report given to SHILA Brizuela PT IN NO ACUTE DISTRESS.
[2020-07-09] MEDS: Dyna-Hex 2% Top Sol 2oz TOPIC SCH (20:10)
--- NOTE | 2020-07-09 21:00 | NUR ---
NURSE NOTES: pt turned, repositioned and cleaned. pts vital signs stable. pts blood sugar 161, Levemir given. pt remains a-symptomatic.
--- NOTE | 2020-07-09 21:24 | NUR ---
NURSE NOTES: Called RT to place pt back on BIPAP. resp at 30 per min. pt is sating 90% O2. pts is alert and oriented times 4. other vital signs stable. Addendum: 07/09/20 at 2125 by YECENIA MAGANA RN WRONG PT.
[2020-07-10] VITALS (27 sets, daily range): BP systolic 94–146; BP diastolic 58–101
--- NOTE | 2020-07-10 03:38 | NUR ---
NURSE NOTES: claims associate henrietta labs/ blood work.
[2020-07-10 05:23] LABS: ALANINE AMINOTRANSFERASE 26 U/L (12-78); ALBUMIN 1.3 G/DL (3.4-5.0); ALBUMIN/GLOBULIN RATIO 0.4 (1.0-2.7); ALKALINE PHOSPHATASE 61 U/L (46-116); ANION GAP 8 mmol/L (5-15); ASPARTATE AMINO TRANSFERASE 18 U/L (15-37); BILIRUBIN,TOTAL 0.5 MG/DL (0.2-1.0); BLOOD UREA NITROGEN 19 mg/dL (7-18); CALCIUM 7.3 MG/DL (8.5-10.1); CARBON DIOXIDE 26 MMOL/L (21-32); CHLORIDE 113 MMOL/L (98-107); CREATININE 0.7 MG/DL (0.55-1.30); PHOSPHORUS 2.1 MG/DL (2.5-4.9); POTASSIUM 3.4 MMOL/L (3.5-5.1); SODIUM 147 MMOL/L (136-145)
[2020-07-10] MEDS: Hydrocortisone 100mg Inj IV SCH ×3 (05:41→22:01)
[2020-07-10] MEDS: NovoLOG Insulin Flexpen SUBQ SCH ×3 (05:43→17:51)
--- NOTE | 2020-07-10 07:14 | NUR ---
NURSE HAND-OFF REPORT: Latest Vital Signs: Temperature 98.7 , Pulse 48 , B/P 107 /60 , Respiratory Rate 24 , O2 SAT 95 , Mechanical Ventilator, O2 Flow Rate 15.0 . Vital Sign Comment: [STABLE] EKG Rhythm: Sinus Bradycardia Rhythm change?: N Notified?: Y -Dr Arlin PRAKASH Response: No New Orders Received Latest Osorio Fall Score: 70 Fall Risk: High Risk Safety Measures: Call light Within Reach, Bed Alarm Zone 1, Side Rails Side Rails x3, Bed position Low and Locked. Fall Precautions: Door Sign Report given to [CESAR Nobles RN].
--- NOTE | 2020-07-10 08:00 | NUR ---
NURSE NOTES: LATE ENTRY: REPORT RECEIVED FROM Chata FUCHS PT DROWSY, AWAKENS TO NAME. 3MM BRISK BILATERAL. PT INTUBATED, ETT 7.5, 22CM AT LIP. AC 24, VT 500, FI02 60%. GAG PRESENT. SECRETIONS THIN, WHITE. BILATERAL RHONCHI, LOWER LOBES DIMINISHED. HOB >30, ASPIRATION PRECAUTIONS. INCREASED WORK OF BREATHING. SATING 99%. ABDOMEN ROUND. BOWEL SOUNDS HYPERACTIVE. G TUBE NOTED. NO RESIDUALS. TUBE FEEDING A.F 1.2, RUNNING AT 50ML/HR. 100 ML FLUSH FREE WATER. NO BM AT THIS TIME. ALNG IN PLACE DRAINING YELLOW URINE. DRAINING BELOW BLADDER. SKIN - SEE ASSESSMENT, WEEPING FROM ABDOMINAL FOLDS. BILATERAL RADIAL PULSES WEAK. TRACE EDEMA NOTED ON FEET. NO JVD. CONTACT ISOLATION. BED LOCKED IN LOW POSITION. WILL CONTINUE TO MONITOR PT.
--- NOTE | 2020-07-10 08:16 | NUR ---
RD ASSESSMENT & RECOMMENDATIONS SEE CARE ACTIVITY FOR COMPLETE ASSESSMENT DAILY ESTIMATED NEEDS: Needs based on CRITICAL CARE, 50kg 22-28 kcals/kg 7918-1982 total kcals 1.25-2 g protein/kg 63-100 g total protein 25-30 mL/kg 2704-4966 total fluid mLs NUTRITION DIAGNOSIS: Swallowing difficulty r/t dysphagia as evdienced by pt w/ Downs Syndrome, PEG dep for all nutritional needs, now intubated, off pressor support pending trach placement. CURRENT TF:Vital AF 1.2 @ 50ml/hr x 22 hrs (On Synthroid QD)- held for procedure ENTERAL NUTRITION RECOMMENDATIONS: VITAL AF 1.2 @ 50ml/hr x 22 hrs to provide 1100ml, 1320 kcal, 83g prot, 892ml free wa ter * Maintain current TF: meets 100% est kcal/prot needs * Hold 1 hr before and after Synthroid med * HOB over 30 degrees/ water flush per MD ADDITIONAL RECOMMENDATIONS: 1) Ht of 61 inches per SNF; recalibrate bed scale for accurate CBW 2) Add NISS: BGs now in the 200's, on Solucortef-> NOW ON NISS + LEVEMIR 3) Monitor hemodynamic stability: OFF PRESSOR SUPPORT 4) Wound healing: add Vit C 250mg QD + continue [place] BID 5) Monitor lytes, replete as needed (low K, phos, mag) 6) Probiotics for diarrhea .
[2020-07-10] MEDS: Pantoprazole Inj IVP SCH ×2 (09:06→22:01)
[2020-07-10] MEDS: Levemir Flexpen SUBQ SCH ×2 (09:09→22:03)
--- NOTE | 2020-07-10 10:11 | General Progress Note ---
Subjective ROS Limited/Unobtainable: No Allergies: Coded Allergies: No Known Allergies (Unverified , 10/16/18) Objective Last 24 Hour Vital Signs Date Time Temp Pulse Resp B/P (MAP) Pulse Ox O2 Delivery O2 Flow Rate FiO2 07/10/20 08:30 46 25 106/64 (78) 95 07/10/20 08:00 62 07/10/20 08:00 60 07/10/20 08:00 Mechanical Ventilator Mechanical Ventilator Mechanical Ventilator 07/10/20 08:00 43 24 114/59 (77) 95 07/10/20 07:30 54 25 117/60 (79) 94 07/10/20 07:10 95 24 55 07/10/20 07:00 98.8 46 25 131/71 (91) 95 07/10/20 06:00 48 24 107/60 (76) 95 07/10/20 05:00 54 24 108/63 (78) 95 07/10/20 04:00 52 07/10/20 04:00 98.7 73 27 124/101 (109) 96 07/10/20 04:00 60 07/10/20 04:00 Mechanical Ventilator Mechanical Ventilator Mechanical Ventilator 07/10/20 03:00 57 30 123/70 (87) 97 07/10/20 02:45 70 24 55 07/10/20 02:00 67 24 109/64 (79) 96 07/10/20 01:00 64 24 139/82 (101) 97 07/10/20 00:00 98.3 60 24 132/79 (96) 97 07/10/20 00:00 60 07/10/20 00:00 Mechanical Ventilator Mechanical Ventilator Mechanical Ventilator 07/10/20 00:00 64 07/09/20 23:00 61 24 102/59 (73) 96 07/09/20 22:19 72 24 55 07/09/20 22:00 65 24 134/68 (90) 96 07/09/20 21:00 64 24 118/69 (85) 96 07/09/20 20:00 64 07/09/20 20:00 60 07/09/20 20:00 Mechanical Ventilator Mechanical Ventilator Mechanical Ventilator 07/09/20 20:00 98.7 62 24 126/104 (111) 96 07/09/20 19:22 70 24 55 07/09/20 19:00 58 25 127/98 (108) 97 07/09/20 18:00 46 27 92/57 (69) 95 07/09/20 17:00 46 27 112/71 (85) 95 07/09/20 16:05 99.0 69 21 110/57 (74) 95 07/09/20 16:00 60 07/09/20 16:00 69 21 110/57 (74) 95 07/09/20 16:00 Mechanical Ventilator Mechanical Ventilator Mechanical Ventilator 07/09/20 16:00 67 07/09/20 15:23 64 24 60 07/09/20 15:00 62 20 112/53 (72) 95 07/09/20 14:00 66 24 115/67 (83) 94 07/09/20 13:00 98.9 48 24 114/50 (71) 94 07/09/20 12:00 58 24 128/54 (78) 93 07/09/20 12:00 58 07/09/20 12:00 Mechanical Ventilator Mechanical Ventilator Mechanical Ventilator 07/09/20 12:00 60 07/09/20 11:30 62 24 60 07/09/20 11:00 57 22 122/72 (89) 96 Intake and Output 0 07/09/20 07/10/20 19:00 07:00 Intake Total 800 ml 400 ml Output Total 610 ml 555 ml Balance 190 ml -155 ml Free Water 100 ml 200 ml IV Total 100 ml Tube Feeding 600 ml 200 ml Output Urine Total 590 ml 545 ml Chest Tube Drainage Total 20 ml 10 ml # Bowel Movements 4 1 Laboratory Tests 07/09/20 18:28: POC Whole Blood Glucose 183H 07/09/20 20:05: POC Whole Blood Glucose [Pending] 07/09/20 23:34: POC Whole Blood Glucose 171H 07/10/20 03:25: Sodium Level 147H, Potassium Level 3.4L, Chloride Level 113H, Carbon Dioxide Level 26, Anion Gap 8, Blood Urea Nitrogen 19H, Creatinine 0.7, Estimat Glomerular Filtration Rate > 60, Glucose Level 180H, Calcium Level 7.3L, Phosphorus Level 2.1L, Magnesium Level 1.7L, Total Bilirubin 0.5, Aspartate Amino Transf (AST/SGOT) 18, Alanine Aminotransferase (ALT/SGPT) 26, Alkaline Phosphatase 61, Total Protein 4.8L, Albumin 1.3L, Globulin 3.5, Albumin/Globulin Ratio 0.4L 07/10/20 05:33: POC Whole Blood Glucose [Pending] Height (Feet): 5 Height (Inches): 3.00 Weight (Pounds): 172 General Appearance: no apparent distress EENT: normal ENT inspection Neck: supple Cardiovascular: normal rate Respiratory/Chest: decreased breath sounds Abdomen: normal bowel sounds, non tender, soft Extremities: non-tender Assessment/Plan Status: stable, not improved, unchanged Assessment/Plan: 1. History of Down syndrome. 2. Dysphagia with G-tube. 3. Seizure disorder. 4. Hypothyroidism. 5. LEANN. 6. Pneumonia. 7. Sepsis. fu H&H prn blood transfusion to keep HGB above 7 ppi GTF hold GI procedures for now stool ob + 1/2 Nehemiah Perez MD Jul 10, 2020 10:11
--- NOTE | 2020-07-10 10:41 | Pulmonolgy Critical Care Note ---
Critical Care - Asmt/Plan Problems: (1) Acute respiratory failure (2) Pneumothorax (3) Bacteremia (4) Pneumonia (5) Sepsis (6) HCAP (healthcare-associated pneumonia) (7) Seizure disorder (8) Down's syndrome (9) Trisomy 21, Down syndrome Respiratory: monitor respiratory rate, adjust FIO2, CXR Cardiac: continue pressors, continue to monitor HR/BP Renal: F/U I&O, keep IV fluid, check electrolytes Infectious Disease: check cultures, continue antibiotics Gastrointestinal: continue feedings/current rate Endocrine: continue sliding scale insulin Hematologic: monitor H/H, transfuse if hgb<8.5 Neurologic: PRN Ativan, keep patient comfortable Prophylaxis: Protonix Disposition: keep in ICU 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, 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 with: nurses, consultants, case reviewermanager mental health - Objective Last 24 Hour Vital Signs Date Time Temp Pulse Resp B/P (MAP) Pulse Ox O2 Delivery O2 Flow Rate FiO2 07/10/20 08:30 46 25 106/64 (78) 95 07/10/20 08:00 62 07/10/20 08:00 60 07/10/20 08:00 Mechanical Ventilator Mechanical Ventilator Mechanical Ventilator 07/10/20 08:00 43 24 114/59 (77) 95 07/10/20 07:30 54 25 117/60 (79) 94 07/10/20 07:10 95 24 55 07/10/20 07:00 98.8 46 25 131/71 (91) 95 07/10/20 06:00 48 24 107/60 (76) 95 07/10/20 05:00 54 24 108/63 (78) 95 07/10/20 04:00 52 07/10/20 04:00 98.7 73 27 124/101 (109) 96 07/10/20 04:00 60 07/10/20 04:00 Mechanical Ventilator Mechanical Ventilator Mechanical Ventilator 07/10/20 03:00 57 30 123/70 (87) 97 07/10/20 02:45 70 24 55 07/10/20 02:00 67 24 109/64 (79) 96 07/10/20 01:00 64 24 139/82 (101) 97 07/10/20 00:00 98.3 60 24 132/79 (96) 97 07/10/20 00:00 60 07/10/20 00:00 Mechanical Ventilator Mechanical Ventilator Mechanical Ventilator 07/10/20 00:00 64 07/09/20 23:00 61 24 102/59 (73) 96 07/09/20 22:19 72 24 55 07/09/20 22:00 65 24 134/68 (90) 96 07/09/20 21:00 64 24 118/69 (85) 96 07/09/20 20:00 64 07/09/20 20:00 60 07/09/20 20:00 Mechanical Ventilator Mechanical Ventilator Mechanical Ventilator 07/09/20 20:00 98.7 62 24 126/104 (111) 96 07/09/20 19:22 70 24 55 07/09/20 19:00 58 25 127/98 (108) 97 07/09/20 18:00 46 27 92/57 (69) 95 07/09/20 17:00 46 27 112/71 (85) 95 07/09/20 16:05 99.0 69 21 110/57 (74) 95 07/09/20 16:00 60 07/09/20 16:00 69 21 110/57 (74) 95 07/09/20 16:00 Mechanical Ventilator Mechanical Ventilator Mechanical Ventilator 07/09/20 16:00 67 07/09/20 15:23 64 24 60 07/09/20 15:00 62 20 112/53 (72) 95 07/09/20 14:00 66 24 115/67 (83) 94 07/09/20 13:00 98.9 48 24 114/50 (71) 94 07/09/20 12:00 58 24 128/54 (78) 93 07/09/20 12:00 58 07/09/20 12:00 Mechanical Ventilator Mechanical Ventilator Mechanical Ventilator 07/09/20 12:00 60 07/09/20 11:30 62 24 60 07/09/20 11:00 57 22 122/72 (89) 96 Status: sedated Condition: critical HEENT: atraumatic, normocephalic Neck: full ROM Lungs: chest wall tender Heart: HR/BP stable Abdomen: soft, non-tender Extremities: no C/C/E Accucheck: 180 Critical Care - Subjective ROS Limited/Unobtainable: Yes Condition: critical EKG Rhythm: Sinus Rhythm FI02: 60 Vent Support Breath Rate: 24 Vent Support Mode: AC Vent Tidal Volume: 500 Sputum Amount: Small PEEP: 0.0 PIP: 34 Tube Feeding Amount: 50 I&O: Intake and Output 07/09/20 07/10/20 19:00 07:00 Intake Total 800 ml 400 ml Output Total 610 ml 555 ml Balance 190 ml -155 ml Free Water 100 ml 200 ml IV Total 100 ml Tube Feeding 600 ml 200 ml Output Urine Total 590 ml 545 ml Chest Tube Drainage Total 20 ml 10 ml # Bowel Movements 4 1 CXR: extensive infiltrate unchanged ET-Tube: 7.5 ET Position: 22 Labs: Laboratory Tests Test 07/09/20 18:28 07/09/20 20:05 07/09/20 23:34 07/10/20 03:25 POC Whole Blood Glucose 183 MG/DL (74-106) H Pending 171 MG/DL (74-106) H Sodium Level 147 MMOL/L (136-145) H Potassium Level 3.4 MMOL/L (3.5-5.1) L Chloride Level 113 MMOL/L (98-107) H Carbon Dioxide Level 26 MMOL/L (21-32) Anion Gap 8 mmol/L (5-15) Blood Urea Nitrogen 19 mg/dL (7-18) H Creatinine 0.7 MG/DL (0.55-1.30) Estimat Glomerular Filtration Rate > 60 mL/min (>60) Glucose Level 180 MG/DL (74-106) H Calcium Level 7.3 MG/DL (8.5-10.1) L Phosphorus Level 2.1 MG/DL (2.5-4.9) L Magnesium Level 1.7 MG/DL (1.8-2.4) L Total Bilirubin 0.5 MG/DL (0.2-1.0) Aspartate Amino Transf (AST/SGOT) 18 U/L (15-37) Alanine Aminotransferase (ALT/SGPT) 26 U/L (12-78) Alkaline Phosphatase 61 U/L (46-116) Total Protein 4.8 G/DL (6.4-8.2) L Albumin 1.3 G/DL (3.4-5.0) L Globulin 3.5 g/dL Albumin/Globulin Ratio 0.4 (1.0-2.7) L Test 07/10/20 05:33 POC Whole Blood Glucose Pending Elayne Allred MD Jul 10, 2020 10:41
[2020-07-10] MEDS: Potassium Phosphate 15mm/250ml 250 ML IVPB SCH ×2 (11:14→15:27)
--- NOTE | 2020-07-10 11:40 | Infectious Diseases Prog Note ---
Assessment/Plan ASSESSMENT: sp code blue 06/03 Septic Shock; SP Fever, recurrent- low grade Leukocytosis; persistent/fluctuating, SP -06/27 Bcx NTD -06/17 u/a no pyuria -06/16 Bcx NTD (Picc line) -06/14 Bcx NTD ucx Neg sp cx C. parapsilopsis -06/03 u/a no pyuria Pneumonia.- COVID 19 neg x3 Acute hypoxic resp failure on VM> NRB 15l 100%; hypoxic on ABG> now VDRF 06/03- Fio2 80% >100% 06/05> 60% 06/09 >80% 06/10 >95% 06/18 >90% 06/22 >60% 06/23 R tension Pneumothroax sp CT 06/29 -06/30 CXR: Interim complete reexpansion of right lung without evidence of residual pneumothorax. Bilateral diffuse and extensive infiltrates. Markedly improved chest wall subcutaneous emphysema -06/29 CXR: Interim reexpansion of previously demonstrated right pneumothorax, status post large bore chest tube placement. -06/22 CXR: Improved aeration of both lungs. -06/13 CXR:Small bilateral pleural effusions with minor edema. Stable edema with mild worsening in the degree of pleural effusion on the right. -06/09 sp cx Neg 06/08 CXR: Extensive bilateral interstitial and airspace disease appears similar to the prior exam. Moderate to large bilateral pleural effusions appear unchanged. 06/05 CXR: Increasing left upper lobe dense consolidation and likely increasing bilateral pleural fluid. Persistent diffuse dense consolidation el sewhere -06/03 sp cx normal resp marie -06/02 CXR: Increased atelectasis of the right lung, since prior e xam of 3 days earlier. New or increased right pleural effusion. Increased left basilar consolidation and/or pleural fluid -COVID Rapid PCR neg 05/31, 05/31, 06/03 -05/30 spc x Group G strep -05/30 CXR: Reduced lung volumes. Patchy bilateral predominantly interstitial pulmonary opacities. Could be from edema and/or pneumonia. There is a broader differential. -legionella ag urine, blasto ab, Histo ab, HIV ab screen, FRANCIS, ANCA neg Persistent, high grade bacteremia- -05/30 Bcx 4/4 sets S. haemolyticus; 05/31 Bcx 3/4 S/ epi; 06/04 Bcx 1.4 S. warnerri; 06/06 Bcx Neg -2d echo: no vegetaions seen ua/ wbc 10-15, nit neg, leuk +1; ucx Neg LEANN; -supratherapeutic vanco levels -Seizure disorder. - Hypothyroidism. - Down syndrome. History of PEG tube placement. [place] resident PLAN: Monitor off abx 06/22 SP Meropenem #18, IV Amikacin #7 06/12/20 SP Daptomycin #11 06/10 SP MIcafungin #7, Linezolid #5 06/05 SP Azithromycin #7/7 06/03 SP Ceftriaxone #2 06/02 SP IV Vancomycin #4, Zosyn #4 05/30 SP Cefepime x1, Flagyl x1 - Monitor CBC, BMP. .f/u cx - COVID neg x3 - Monitor chest x-ray. - Monitor the patient's clinical course and labs. Based on those, we will do further recommendation. -f/u Fungitell, asp ag, flow cytometry -poor prognosis Thank you, Dr. Allred, for allowing me to participate in the care of this patient. I will follow the patient with you at this hospitalization. Discussed with RN Subjective Allergies: Coded Allergies: No Known Allergies (Unverified , 10/16/18) Afebrile On Vent No leukocytosis Objective Last 24 Hour Vital Signs Date Time Temp Pulse Resp B/P (MAP) Pulse Ox O2 Delivery O2 Flow Rate FiO2 07/10/20 08:30 46 25 106/64 (78) 95 07/10/20 08:00 62 07/10/20 08:00 60 07/10/20 08:00 Mechanical Ventilator Mechanical Ventilator Mechanical Ventilator 07/10/20 08:00 43 24 114/59 (77) 95 07/10/20 07:30 54 25 117/60 (79) 94 07/10/20 07:10 95 24 55 07/10/20 07:00 98.8 46 25 131/71 (91) 95 07/10/20 06:00 48 24 107/60 (76) 95 07/10/20 05:00 54 24 108/63 (78) 95 07/10/20 04:00 52 07/10/20 04:00 98.7 73 27 124/101 (109) 96 07/10/20 04:00 60 10/2/20 04:00 Mechanical Ventilator Mechanical Ventilator Mechanical Ventilator 07/10/20 03:00 57 30 123/70 (87) 97 07/10/20 02:45 70 24 55 07/10/20 02:00 67 24 109/64 (79) 96 07/10/20 01:00 64 24 139/82 (101) 97 07/10/20 00:00 98.3 60 24 132/79 (96) 97 07/10/20 00:00 60 07/10/20 00:00 Mechanical Ventilator Mechanical Ventilator Mechanical Ventilator 07/10/20 00:00 64 07/09/20 23:00 61 24 102/59 (73) 96 07/09/20 22:19 72 24 55 07/09/20 22:00 65 24 134/68 (90) 96 07/09/20 21:00 64 24 118/69 (85) 96 07/09/20 20:00 64 07/09/20 20:00 60 07/09/20 20:00 Mechanical Ventilator Mechanical Ventilator Mechanical Ventilator 07/09/20 20:00 98.7 62 24 126/104 (111) 96 07/09/20 19:22 70 24 55 07/09/20 19:00 58 25 127/98 (108) 97 07/09/20 18:00 46 27 92/57 (69) 95 07/09/20 17:00 46 27 112/71 (85) 95 07/09/20 16:05 99.0 69 21 110/57 (74) 95 07/09/20 16:00 60 07/09/20 16:00 69 21 110/57 (74) 95 07/09/20 16:00 Mechanical Ventilator Mechanical Ventilator Mechanical Ventilator 07/09/20 16:00 67 07/09/20 15:23 64 24 60 07/09/20 15:00 62 20 112/53 (72) 95 07/09/20 14:00 66 24 115/67 (83) 94 07/09/20 13:00 98.9 48 24 114/50 (71) 94 07/09/20 12:00 58 24 128/54 (78) 93 07/09/20 12:00 58 07/09/20 12:00 Mechanical Ventilator Mechanical Ventilator Mechanical Ventilator 07/09/20 12:00 60 Height (Feet): 5 Height (Inches): 3.00 Weight (Pounds): 172 GEN: NAD, On Vent HEENT: NCAT, Intubated, Pulm: Equal chest rise and fall B/L, No accessory muscle use ABD: Soft, ND SKIN: Exposed skin with no rash, Normal in color Laboratory Tests Test 07/09/20 18:28 07/09/20 20:05 07/09/20 23:34 07/10/20 03:25 POC Whole Blood Glucose 183 MG/DL (74-106) H Pending 171 MG/DL (74-106) H Sodium Level 147 MMOL/L (136-145) H Potassium Level 3.4 MMOL/L (3.5-5.1) L Chloride Level 113 MMOL/L (98-107) H Carbon Dioxide Level 26 MMOL/L (21-32) Anion Gap 8 mmol/L (5-15) Blood Urea Nitrogen 19 mg/dL (7-18) H Creatinine 0.7 MG/DL (0.55-1.30) Estimat Glomerular Filtration Rate > 60 mL/min (>60) Glucose Level 180 MG/DL (74-106) H Calcium Level 7.3 MG/DL (8.5-10.1) L Phosphorus Level 2.1 MG/DL (2.5-4.9) L Magnesium Level 1.7 MG/DL (1.8-2.4) L Total Bilirubin 0.5 MG/DL (0.2-1.0) Aspartate Amino Transf (AST/SGOT) 18 U/L (15-37) Alanine Aminotransferase (ALT/SGPT) 26 U/L (12-78) Alkaline Phosphatase 61 U/L (46-116) Total Protein 4.8 G/DL (6.4-8.2) L Albumin 1.3 G/DL (3.4-5.0) L Globulin 3.5 g/dL Albumin/Globulin Ratio 0.4 (1.0-2.7) L Test 07/10/20 05:33 POC Whole Blood Glucose Pending Current Medications Medications (Trade) Dose Ordered Sig/Katy Route PRN Reason Start Time Stop Time Status Last Admin Dose Admin Acetaminophen (Tylenol) 650 mg Q4H PRN GT For Pain 07/01/20 17:15 07/31/20 17:14 07/09/20 14:56 Chlorhexidine Gluconate (Alla-Hex 2%) 1 applic DAILY@2000 TOPIC 06/08/20 20:00 09/06/20 19:59 07/09/20 20:10 Clotrimazole (Lotrimin) 1 applic Q12HR TOPIC 06/07/20 13:00 09/05/20 12:59 07/10/20 09:07 Dextrose (Dextrose 50%) 25 ml Q30M PRN IV Hypoglycemia 06/03/20 11:30 08/28/20 11:29 Dextrose (Dextrose 50%) 50 ml Q30M PRN IV Hypoglycemia 06/03/20 11:30 08/28/20 11:29 Hydrocortisone (Solu-CORTEF) 50 mg EVERY 8 HOURS IV 07/06/20 06:00 10/04/20 05:59 07/10/20 05:41 Insulin Aspart (NovoLOG) Q6HR SUBQ 06/26/20 12:00 09/24/20 11:59 07/10/20 05:43 Insulin Detemir (Levemir) 10 units Q12HR SUBQ 06/26/20 10:00 09/24/20 09:59 07/10/20 09:09 Levothyroxine Sodium (Synthroid) 75 mcg DAILY@0630 GT 07/08/20 06:30 08/07/20 06:29 07/10/20 05:41 Loperamide HCl (Imodium) 2 mg Q6H PRN NG Diarrhea 06/24/20 10:30 07/24/20 10:29 07/01/20 11:41 Magnesium Sulfate 100 ml @ 100 mls/hr Q1H IVPB 07/10/20 09:30 07/10/20 13:29 07/10/20 11:14 Pantoprazole (Protonix) 40 mg EVERY 12 HOURS IVP 07/06/20 21:00 08/05/20 20:59 07/10/20 09:06 Potassium Phosphate 250 ml @ 62.5 mls/hr Q4H IVPB 07/10/20 11:00 07/10/20 18:59 07/10/20 11:14 Potassium Chloride (K-Dur) 40 meq EVERY 12 HOURS GT 07/04/20 21:00 09/26/20 12:14 07/10/20 09:06 Chencho Corley MD Jul 10, 2020 11:40
--- NOTE | 2020-07-10 11:51 | Surgery Progress Note ---
Surgery Progress Note Subjective Additional Comments consent for trach currently et tube with leak. would recommend that tube be exchanged will plan trach but in meantime tube change to ensure safe trach Objective Last 24 Hour Vital Signs Date Time Temp Pulse Resp B/P (MAP) Pulse Ox O2 Delivery O2 Flow Rate FiO2 07/10/20 08:30 46 25 106/64 (78) 95 07/10/20 08:00 62 07/10/20 08:00 60 07/10/20 08:00 Mechanical Ventilator Mechanical Ventilator Mechanical Ventilator 07/10/20 08:00 43 24 114/59 (77) 95 07/10/20 07:30 54 25 117/60 (79) 94 07/10/20 07:10 95 24 55 07/10/20 07:00 98.8 46 25 131/71 (91) 95 07/10/20 06:00 48 24 107/60 (76) 95 07/10/20 05:00 54 24 108/63 (78) 95 07/10/20 04:00 52 07/10/20 04:00 98.7 73 27 124/101 (109) 96 07/10/20 04:00 60 07/10/20 04:00 Mechanical Ventilator Mechanical Ventilator Mechanical Ventilator 07/10/20 03:00 57 30 123/70 (87) 97 07/10/20 02:45 70 24 55 07/10/20 02:00 67 24 109/64 (79) 96 07/10/20 01:00 64 24 139/82 (101) 97 07/10/20 00:00 98.3 60 24 132/79 (96) 97 07/10/20 00:00 60 07/10/20 00:00 Mechanical Ventilator Mechanical Ventilator Mechanical Ventilator 07/10/20 00:00 64 07/09/20 23:00 61 24 102/59 (73) 96 07/09/20 22:19 72 24 55 07/09/20 22:00 65 24 134/68 (90) 96 07/09/20 21:00 64 24 118/69 (85) 96 07/09/20 20:00 64 07/09/20 20:00 60 07/09/20 20:00 Mechanical Ventilator Mechanical Ventilator Mechanical Ventilator 07/09/20 20:00 98.7 62 24 126/104 (111) 96 07/09/20 19:22 70 24 55 07/09/20 19:00 58 25 127/98 (108) 97 07/09/20 18:00 46 27 92/57 (69) 95 07/09/20 17:00 46 27 112/71 (85) 95 07/09/20 16:05 99.0 69 21 110/57 (74) 95 07/09/20 16:00 60 07/09/20 16:00 69 21 110/57 (74) 95 07/09/20 16:00 Mechanical Ventilator Mechanical Ventilator Mechanical Ventilator 07/09/20 16:00 67 07/09/20 15:23 64 24 60 07/09/20 15:00 62 20 112/53 (72) 95 07/09/20 14:00 66 24 115/67 (83) 94 07/09/20 13:00 98.9 48 24 114/50 (71) 94 07/09/20 12:00 58 24 128/54 (78) 93 07/09/20 12:00 58 07/09/20 12:00 Mechanical Ventilator Mechanical Ventilator Mechanical Ventilator 07/09/20 12:00 60 I&O Intake and Output 07/09/20 07/10/20 19:00 07:00 Intake Total 800 ml 400 ml Output Total 610 ml 555 ml Balance 190 ml -155 ml Free Water 100 ml 200 ml IV Total 100 ml Tube Feeding 600 ml 200 ml Output Urine Total 590 ml 545 ml Chest Tube Drainage Total 20 ml 10 ml # Bowel Movements 4 1 Dressing: other Wound: other Cardiovascular: RSR Respiratory: decreased breath sounds Abdomen: soft, non-tender, present bowel sounds Extremities: no tenderness, no cyanosis Laboratory Tests Test 07/09/20 18:28 07/09/20 20:05 07/09/20 23:34 07/10/20 03:25 POC Whole Blood Glucose 183 MG/DL (74-106) H Pending 171 MG/DL (74-106) H Sodium Level 147 MMOL/L (136-145) H Potassium Level 3.4 MMOL/L (3.5-5.1) L Chloride Level 113 MMOL/L (98-107) H Carbon Dioxide Level 26 MMOL/L (21-32) Anion Gap 8 mmol/L (5-15) Blood Urea Nitrogen 19 mg/dL (7-18) H Creatinine 0.7 MG/DL (0.55-1.30) Estimat Glomerular Filtration Rate > 60 mL/min (>60) Glucose Level 180 MG/DL (74-106) H Calcium Level 7.3 MG/DL (8.5-10.1) L Phosphorus Level 2.1 MG/DL (2.5-4.9) L Magnesium Level 1.7 MG/DL (1.8-2.4) L Total Bilirubin 0.5 MG/DL (0.2-1.0) Aspartate Amino Transf (AST/SGOT) 18 U/L (15-37) Alanine Aminotransferase (ALT/SGPT) 26 U/L (12-78) Alkaline Phosphatase 61 U/L (46-116) Total Protein 4.8 G/DL (6.4-8.2) L Albumin 1.3 G/DL (3.4-5.0) L Globulin 3.5 g/dL Albumin/Globulin Ratio 0.4 (1.0-2.7) L Test 07/10/20 05:33 POC Whole Blood Glucose Pending Plan Problems: (1) Respiratory distress Assessment & Plan: Respiratory insufficiency requiring prolonged ventilator support. Patient on minimal vent settings right now currently in stable but unfortunately not safe for extubation. Tracheostomy is indicated recommended. I discussed case with pulmonology team ICU team medical teams. Patient unable to make decisions and her current condition and given her history. The care team has been contacted and will be reviewed for evaluation and consideration of the tracheostomy. If consented I think it is reasonable for tracheostomy given patient's current CODE STATUS care plan and goals of care. Extubation his curr ent status is potentially high risk for reintubation emergency complication. We will plan for tracheostomy if consent is obtained. Thank you for let me participate patient's care will follow with recommendations (2) Encephalopathy chronic (3) Dysphagia (4) Down's syndrome (5) Sepsis (6) Acute respiratory failure (7) Pneumonia (8) Trisomy 21, Down syndrome (9) LEANN (acute kidney injury) (10) Bacteremia (11) Hypokalemia (12) Anemia (13) Diarrhea (14) Hypernatremia (15) Pneumothorax (16) Pneumothorax, right (17) Cardiac arrest (18) ARDS (adult respiratory distress syndrome) (19) Septic shock (20) HCAP (healthcare-associated pneumonia) (21) Respiratory failure requiring intubation (22) Seizure disorder (23) Hypothyroidism Mark Gordon Jul 10, 2020 11:51
--- NOTE | 2020-07-10 12:45 | NUR ---
NURSE NOTES: LATE ENTRY: MD. NIETO HERE TO INTUBATE PT. PT PREMEDICATED WITH 20MG/10ML ETOMIDATE, IVP. ET TUBE 7.5 23CM AT LIP. VENT SETTINGS: AC 24, VT 500, FI02 60%. BREATH SOUNDS CLEAR RT LUNG, DIMINISHED. SECRETIONS THICK, PINK. AWAITING POST INTUBATION CXR. Addendum: 07/10/20 at 1955 by Maribel Arciniega RN NURSE NOTES: LATE ENTRY: ET TUBE BEING CHANGED FOR CUFF LEAK NOTED. PT RR INCREASE, SATURATION FLUCTUATING AND NOT MAINTAINING VOLUMES, PT DROWSY.
--- NOTE | 2020-07-10 12:51 | Emergency Room Report ---
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 COVID-19 Screening: Negative COVID-19 COVID-19 Testing Source: 05/18/20 Nursing Documentation-PMH Past Medical History: No History, Except For Hx Cardiac Problems: No - PVD Hx Diabetes: No - Hypothyroid Hx Cancer: No Hx Gastrointestinal Problems: No - gastrostomy Hx Neurological Problems: Yes - down syndrome Hx Seizures: Yes Hx Speech Problem: Yes Physical Exam Vital Signs Date Time Temp Pulse Resp B/P (MAP) Pulse Ox O2 Delivery O2 Flow Rate FiO2 07/06/20 07:00 48 23 94/74 (81) 97 07/06/20 07:33 70 07/06/20 08:00 96.5 07/06/20 08:00 Mechanical Ventilator Mechanical Ventilator Mechanical Ventilator Procedures Intubation Intubation : Consent: Emergent Time of Intubation: 12:40 Medications: Etomidate Breath Sounds after Intubation: equal Intubation Complications: no complications Post Intubation Xray: Yes Attempts: One Patient Tolerated: Well Complications: None Progress . Patient intubated over bougie due to cuff leak. Post procedure x-ray after 2 hours of ventilation showed left-sided pneumothorax. Patient had previous right-sided pneumothorax. Radiology was consulted for management of pneumothorax with a Thora vent Medical Decision Making Diagnostic Impression: Primary Impression: ARDS (adult respiratory distress syndrome) Additional Impressions: HCAP (healthcare-associated pneumonia) Septic shock Respiratory failure requiring intubation Last Vital Signs Date Time Temp Pulse Resp B/P (MAP) Pulse Ox O2 Delivery O2 Flow Rate FiO2 07/10/20 12:00 98.6 55 23 107/61 (76) 95 07/10/20 12:00 Mechanical Ventilator Mechanical Ventilator Mechanical Ventilator 07/10/20 12:00 60 Disposition: ADMITTED INPATIENT Condition: Critical Referrals: NON PHYSICIAN (PCP) Jose Jensen MD Jul 10, 2020 12:51
--- NOTE | 2020-07-10 14:00 | NUR ---
NURSE NOTES: late entry: tech here to do chest x ray. pt has required increase in fi02 to 80%. lung sounds absent on lower left lobe. change in color of drainage on chest tube rt lung sanguinous fluid. pt made as comfortable as possible. awaiting results.
--- NOTE | 2020-07-10 14:00 | Nephrology Progress Note ---
Assessment/Plan Problem List: (1) LEANN (acute kidney injury) (2) Respiratory failure requiring intubation (3) Down's syndrome (4) Seizure disorder (5) Hypothyroidism Assessment Acute renal failure, likely due to hypotension Acute respiratory distress, hypoxia Seizure disorder Hypothyroidism Down syndrome Full code Fluid challenge with IV fluids and albumin Midodrine for BP above 100 systolic Check TSH level Check Correct level Monitor renal parameters Urine studies Per orders Plan July 10: Remains intubated on ventilator. Electrolyte abnormalities ad dressed. Supplements ordered. July 09: Intubated on ventilator. Labs reviewed. Potassium supplement given. Remains bradycardic. Continue per consultants. July 08: Labs reviewed. Electrolyte abnormalities addressed. Heart rate remains bradycardic. Continue per cardiology. Continue to monitor renal parameters and electrolytes. July 07: Labs reviewed. Electrolyte abnormalities addressed and replaced. Medication list reviewed. Heart rate remains mid 50s. Continue as is. July 06: On ventilator. Full code. Heart rate low. Will discontinue Midodrin. Continue to rest. Electrolytes within normal limit. Discussed with RN. July 05: Remains intubated. Full code. No plan for tracheostomy yet. Labs reviewed. All acceptable. Continue same management July 04: Labs reviewed. Discussed with RN. Potassium and phosphorus and magnesium replacement ordered. Hemoglobin 9.5. Patient remains full code. Continue per consultants. July 03: Lab reviewed. Renal parameters stable. Full code. Intubated. Electrolyte abnormalities addressed and replacement done. July 02: Lab reviewed. Renal parameters stable. Full code. Intubated. Has right side chest tube. Continue per consultants. July 01: Lab reviewed. Renal parameters stable. Full code. Has right chest tube. Planning process for tracheostomy. Defer to chest and general surgeon. June 30: Labs reviewed. Renal parameters stable. Remains full code. Remains on ventilator. Due for tracheostomy tomorrow. Continue per consultants. Patient has a right chest tube in place at this time. June 29: Labs reviewed. Electrolyte imbalances addressed and supplemented. Remains full code and on ventilator. Continue to monitor renal parameters. Continue per consultants. June 28: Labs reviewed. Serum potassium again low today. Potassium supplement IV and through GT given. Patient remains full code and is on ventilator. Continue per consultants. Continue to monitor electrolytes and renal parameters. June 27: Labs reviewed. Abnormal electrolyte addressed. Remains full code. Remains vented. June 26: Day 27 of hospitalization. Full code. Labs reviewed. Hemoglobin down to 7.5. Electrolyte abnormalities addressed and corrections ordered. Con tinue to monitor renal parameters. Continue per consultants. Start on Levemir for blood sugar management. Questioning continuation of hydrocortisone? June 25: Labs reviewed. Potassium, phosphorus, hemoglobin, are all low. Potassium and phosphorus IV replacement given. Continue to monitor electrolytes and CBC. Patient remains full code. June 24: Lab reviewed. Low phosphorus low magnesium and low potassium was addressed. Hemoglobin drifting lower. Continue per consultants. Patient remains full code. June 23: Labs reviewed. Patient continues to be on ventilator. D5W for high sodium and also potassium chloride intravenously as supplement given. Hemoglobin 8.4. Continue to monitor electrolytes and renal parameters. June 22: Labs reviewed. Low potassium and high sodium noted. Hemoglobin 8.1 stable. Aim to correct abnormal electrolyte. Continue rest. Will give 2 boluses of D5W 500 cc. June 21: Lab reviewed. Abnormal electrolytes noted and addressed. June 20: Labs reviewed. Potassium supplement given. Patient remains full code. Continue per consultants. June 19: Lab reviewed. Electrolyte abnormalities addressed. Continue per pulmonary and ID. June 18: Lab reviewed. Status unchanged. Serum sodium 151 unchanged. Stable from renal standpoint of view. June 17: Labs reviewed. Status quo. D5W 500 cc IV ordered. Continue to m onitor renal parameters. June 16: Status quo. Labs reviewed. Overall condition unchanged. Patient was transfused and hemoglobin higher. Continue current management. Patient remains full code. June 15: Status quo. Overall condition poor. Very low albumin. Edematous. Hypotensive. Hemoglobin lower. Anemia work-up ordered. I favor transfusion 2 units of packed RBCs. Patient remains full code. I favor supportive care only. Will discuss. June 14: Electrolyte abnormalities addressed. Serum creatinine lower. Continue per current management. June 13: Status unchanged. Lab reviewed. Serum potassium 2.7. IV potassium chloride ordered. Serum creatinine low at 1.6 stable. Blood pressure 90s systolic June 12: Status quo. Labs reviewed. Renal parameters stable. Serum creatinine down to 1.6. Medication list reviewed. Continues to be on midodrine. Continue per consultants. June 11: Status quo. Labs reviewed. Electrolytes adjusted. Serum creatinine down to 1.8. Continue per consultants. June 10: Status quo. Labs reviewed. Phosphorus supplement IV given. Serum creatinine 2. Continue per consultants. June 09: Requires less pressors. Albumin bolus given. 1 dose of Lasix IV ordered as the patient severely edematous. Patient serum albumin is very low. Continue per consultants. June 08: Continues to be intubated. Labs reviewed. Serum creatinine 1.9 unchanged. Blood pressure more stable. Off 1 of the pressors. Continue to monitor renal parameters. Continue per consultants. Patient now on hydrocortisone 100 mg every 8 hours. Will decrease IV fluid. Normal saline down to 50 cc an hour. June 07: Intubated. Labs reviewed. Creatinine 1.9 unchanged. Continue same treatment plan. Per consultants. Overall poor prognosis since the patient remains on pressors and her pulmonary status is worsening. June 06: Remains intubated. Labs reviewed. Creatinine 1.9. Blood pressure systolic 90s. Continue per consultants. June 05: Remains intubated. Labs reviewed. Serum creatinine lower to 2. Vancomycin level lower. Remains hypotensive on pressors. Will increase midodrine to 10 mg every 8 hours. Continue per consultants. Continue to monitor renal parameters. June 04: Patient now in ICU. Intubated. On pressors. Labs reviewed. Will increase midodrine. Aim to keep blood pressure over 100 systolic. Will give albumin bolus. Will check vancomycin level which was elevated when checked previously on June 01. Will monitor renal parameters. Continue per co nsultants. Subjective ROS Limited/Unobtainable: Yes Objective Objective Last 24 Hour Vital Signs Date Time Temp Pulse Resp B/P (MAP) Pulse Ox O2 Delivery O2 Flow Rate FiO2 07/10/20 13:00 67 28 99/69 (79) 94 07/10/20 12:40 74 28 55 07/10/20 12:00 98.6 55 23 107/61 (76) 95 07/10/20 12:00 68 07/10/20 12:00 Mechanical Ventilator Mechanical Ventilator Mechanical Ventilator 07/10/20 12:00 60 07/10/20 11:05 56 27 55 07/10/20 11:00 53 23 106/58 (74) 94 07/10/20 10:00 57 34 121/65 (83) 100 07/10/20 09:20 58 25 129/87 (101) 93 07/10/20 09:00 54 25 146/100 (115) 96 07/10/20 08:30 46 25 106/64 (78) 95 07/10/20 08:00 62 07/10/20 08:00 60 07/10/20 08:00 Mechanical Ventilator Mechanical Ventilator Mechanical Ventilator 07/10/20 08:00 43 24 114/59 (77) 95 07/10/20 07:30 54 25 117/60 (79) 94 07/10/20 07:10 95 24 55 07/10/20 07:00 98.8 46 25 131/71 (91) 95 07/10/20 06:00 48 24 107/60 (76) 95 07/10/20 05:00 54 24 108/63 (78) 95 07/10/20 04:00 52 07/10/20 04:00 98.7 73 27 124/101 (109) 96 07/10/20 04:00 60 07/10/20 04:00 Mechanical Ventilator Mechanical Ventilator Mechanical Ventilator 07/10/20 03:00 57 30 123/70 (87) 97 07/10/20 02:45 70 24 55 07/10/20 02:00 67 24 109/64 (79) 96 07/10/20 01:00 64 24 139/82 (101) 97 07/10/20 00:00 98.3 60 24 132/79 (96) 97 07/10/20 00:00 60 07/10/20 00:00 Mechanical Ventilator Mechanical Ventilator Mechanical Ventilator 07/10/20 00:00 64 07/09/20 23:00 61 24 102/59 (73) 96 07/09/20 22:19 72 24 55 07/09/20 22:00 65 24 134/68 (90) 96 07/09/20 21:00 64 24 118/69 (85) 96 07/09/20 20:00 64 07/09/20 20:00 60 07/09/20 20:00 Mechanical Ventilator Mechanical Ventilator Mechanical Ventilator 07/09/20 20:00 98.7 62 24 126/104 (111) 96 07/09/20 19:22 70 24 55 07/09/20 19:00 58 25 127/98 (108) 97 07/09/20 18:00 46 27 92/57 (69) 95 07/09/20 17:00 46 27 112/71 (85) 95 07/09/20 16:05 99.0 69 21 110/57 (74) 95 07/09/20 16:00 60 07/09/20 16:00 69 21 110/57 (74) 95 07/09/20 16:00 Mechanical Ventilator Mechanical Ventilator Mechanical Ventilator 07/09/20 16:00 67 07/09/20 15:23 64 24 60 07/09/20 15:00 62 20 112/53 (72) 95 07/09/20 14:00 66 24 115/67 (83) 94 Intake and Output 07/09/20 07/10/20 19:00 07:00 Intake Total 800 ml 400 ml Output Total 610 ml 555 ml Balance 190 ml -155 ml Free Water 100 ml 200 ml IV Total 100 ml Tube Feeding 600 ml 200 ml Output Urine Total 590 ml 545 ml Chest Tube Drainage Total 20 ml 10 ml # Bowel Movements 4 1 Laboratory Tests 07/09/20 18:28: POC Whole Blood Glucose 183H 07/09/20 20:05: POC Whole Blood Glucose [Pending] 07/09/20 23:34: POC Whole Blood Glucose 171H 07/10/20 03:25: Sodium Level 147H, Potassium Level 3.4L, Chloride Level 113H, Carbon Dioxide Level 26, Anion Gap 8, Blood Urea Nitrogen 19H, Creatinine 0.7, Estimat Glomerular Filtration Rate > 60, Glucose Level 180H, Calcium Level 7.3L, Phosphorus Level 2.1L, Magnesium Level 1.7L, Total Bilirubin 0.5, Aspartate Amino Transf (AST/SGOT) 18, Alanine Aminotransferase (ALT/SGPT) 26, Alkaline Phosphatase 61, Total Protein 4.8L, Albumin 1.3L, Globulin 3.5, Albumin/Globulin Ratio 0.4L 07/10/20 05:33: POC Whole Blood Glucose [Pending] 07/10/20 12:03: POC Whole Blood Glucose 138H Height (Feet): 5 Height (Inches): 3.00 Weight (Pounds): 172 General Appearance: no apparent distress EENT: other - Intubated on ventilator Cardiovascular: normal rate Respiratory/Chest: decreased breath sounds Abdomen: distended Keron Pitt MD Jul 10, 2020 14:00
--- NOTE | 2020-07-10 14:30 | NUR ---
NURSE NOTES: LATE ENTRY: RECEIVED CALL FROM MD. NIETO, REPORTED LARGE LEFT LUNG PNEUMOTHORAX. MD WILL CONTACT Sanya WARNER FOR CHEST TUBE INSERTION.
[2020-07-10] MEDS ORDERED: Lidocaine 1% Plain 30 ml INJ PRN (15:13)
--- NOTE | 2020-07-10 15:22 | Diagnostic Imaging Report ---
Indication: Post intubation Technique: One view of the chest Comparison: 07/08/2020 Findings: Endotracheal tube projects approximately 2 cm above the joseph, in satisfactory position. There is a large left pneumothorax, estimated 70-80%. There is questionably some rightward mediastinal shift. Right lung remains unchanged there are left arm PICC again demonstrated. Impression: Large left pneumothorax, possibly tension pneumothorax Satisfactory endotracheal intubation
--- NOTE | 2020-07-10 15:22 | NUR ---
NURSE NOTES: LATE ENTRY: CALLED MD. WARNER TO F/U ON ORDER FOR EMERGENT CHEST TUBE INTUBATION. AWARE. PROCEDURE NEEDED FOR PT SAFETY/ OUTCOME.
--- NOTE | 2020-07-10 15:25 | NUR ---
RADIOLOGY NOTE: LEFT UPPER ANTERIOR THORAVENT PLACED.
--- NOTE | 2020-07-10 15:48 | General Progress Note ---
Progress Note Progress Note Surgery: Patient had cuff leak on ET tube. decreased volumes and saturation. ET tube was replaced since and new tube with functional cuff. repeat CXR noted a large left pneumothorax. I have personally reviewed the imaging and have reviewed it with the ED physician and Radiologist. Attempt was made to contact the con servator but not able to do so at this time. Emergency tube thoracostomy indicated and recommended. This is potentially life threatening and reversible. procedure required now and medically necessary emergency. I have recommended for the radiologist who is kind enough to place a thoravent which would be in patients best interest and minimally invasive. recommend proceeding with procedure emergently in patients best interest and safety. thank you Mark Gordon Jul 10, 2020 15:48
--- NOTE | 2020-07-10 16:39 | Internal Med Progress Note ---
Subjective Physician Name Guillaume Hawk Attending Physician Elayne Allred MD Current Medications Medications (Trade) Dose Ordered Sig/Katy Route PRN Reason Start Time Stop Time Status Last Admin Dose Admin Acetaminophen (Tylenol) 650 mg Q4H PRN GT For Pain 07/01/20 17:15 07/31/20 17:14 07/09/20 14:56 Chlorhexidine Gluconate (Alla-Hex 2%) 1 applic DAILY@1999 TOPIC 06/08/20 20:00 09/06/20 19:59 07/09/20 20:10 Clotrimazole (Lotrimin) 1 applic Q12HR TOPIC 06/07/20 13:00 09/05/20 12:59 07/10/20 09:07 Dextrose (Dextrose 50%) 25 ml Q30M PRN IV Hypoglycemia 06/03/20 11:30 08/28/20 11:29 Dextrose (Dextrose 50%) 50 ml Q30M PRN IV Hypoglycemia 06/03/20 11:30 08/28/20 11:29 Hydrocortisone (Solu-CORTEF) 50 mg EVERY 8 HOURS IV 07/06/20 06:00 10/04/20 05:59 07/10/20 13:38 Insulin Aspart (NovoLOG) Q6HR SUBQ 06/26/20 12:00 09/24/20 11:59 07/10/20 05:43 Insulin Detemir (Levemir) 10 units Q12HR SUBQ 06/26/20 10:00 09/24/20 09:59 07/10/20 09:09 Levothyroxine Sodium (Synthroid) 75 mcg DAILY@0630 GT 07/08/20 06:30 08/07/20 06:29 07/10/20 05:41 Lidocaine HCl (Xylocaine 1% 30ml) 30 ml ONCE PRN INJ PROCEDURE 07/10/20 15:13 07/10/20 23:59 Loperamide HCl (Imodium) 2 mg Q6H PRN NG Diarrhea 06/24/20 10:30 07/24/20 10:29 07/01/20 11:41 Pantoprazole (Protonix) 40 mg EVERY 12 HOURS IVP 07/06/20 21:00 08/05/20 20:59 07/10/20 09:06 Potassium Phosphate 250 ml @ 62.5 mls/hr Q4H IVPB 07/10/20 11:00 07/10/20 18:59 07/10/20 15:27 Potassium Chloride (K-Dur) 40 meq EVERY 12 HOURS GT 07/04/20 21:00 09/26/20 12:14 07/10/20 09:06 Allergies: Coded Allergies: No Known Allergies (Unverified , 10/16/18) Subjective in ICU, remained intubated on the vent, status post left chest tube placement, WBC 6.5, Hemoglobin 8.6,. Objective Last Vital Signs Date Time Temp Pulse Resp B/P (MAP) Pulse Ox O2 Delivery O2 Flow Rate FiO2 07/10/20 15:00 78 19 94/74 (81) 97 07/10/20 12:40 55 07/10/20 12:00 98.6 07/10/20 12:00 Mechanical Ventilator Mechanical Ventilator Mechanical Ventilator Laboratory Tests Test 07/09/20 18:28 07/09/20 20:05 07/09/20 23:34 07/10/20 03:25 POC Whole Blood Glucose 183 MG/DL (74-106) H Pending 171 MG/DL (74-106) H Sodium Level 147 MMOL/L (136-145) H Potassium Level 3.4 MMOL/L (3.5-5.1) L Chloride Level 113 MMOL/L (98-107) H Carbon Dioxide Level 26 MMOL/L (21-32) Anion Gap 8 mmol/L (5-15) Blood Urea Nitrogen 19 mg/dL (7-18) H Creatinine 0.7 MG/DL (0.55-1.30) Estimat Glomerular Filtration Rate > 60 mL/min (>60) Glucose Level 180 MG/DL (74-106) H Calcium Level 7.3 MG/DL (8.5-10.1) L Phosphorus Level 2.1 MG/DL (2.5-4.9) L Magnesium Level 1.7 MG/DL (1.8-2.4) L Total Bilirubin 0.5 MG/DL (0.2-1.0) Aspartate Amino Transf (AST/SGOT) 18 U/L (15-37) Alanine Aminotransferase (ALT/SGPT) 26 U/L (12-78) Alkaline Phosphatase 61 U/L (46-116) Total Protein 4.8 G/DL (6.4-8.2) L Albumin 1.3 G/DL (3.4-5.0) L Globulin 3.5 g/dL Albumin/Globulin Ratio 0.4 (1.0-2.7) L Test 07/10/20 05:33 07/10/20 12:03 POC Whole Blood Glucose Pending 138 MG/DL (74-106) H Intake and Output 07/09/20 07/10/20 19:00 07:00 Intake Total 800 ml 400 ml Output Total 610 ml 555 ml Balance 190 ml -155 ml Free Water 100 ml 200 ml IV Total 100 ml Tube Feeding 600 ml 200 ml Output Urine Total 590 ml 545 ml Chest Tube Drainage Total 20 ml 10 ml # Bowel Movements 4 1 Objective General: remain intubated, unable to follow command, open eyes with deep stimuli. HEENT: NCAT, sclera anicteric, PERRL, ET Tube. Neck: Supple, no significant jugular venous distention, Lungs: mechanical breath sounds decreased air at the bases, no Wheeze, +coarse breath sound. CHEST WALL: Bilateral chest tubes. Heart: Regular rate and rhythm, normal S1/S2, no murmurs/gallops Abdomen: soft, not tender, not distended. + bowel sounds, Morbid Obesity, PEG site intact. : Gregorio cath Extremities: No Cyanosis , clubbing, Bilateral upper extremities edema. left upper extremity PICC line. Neuro: limited secondary to patient status, unable to follow command, bilateral upper and lower extremities contracted. Assessment/Plan Assessment/Plan Problem List: (1) HCAP (healthcare-associated pneumonia) (2) Sepsis (3) Down's syndrome (4) Dysphagia S/P PEG (5) Seizure disorder (6) Hypothyroidism (7) Acute Hypoxemic respiratory failure (8) Persistent, high grade bacteremia- r/o endocarditis (9) LEANN (10) Bilateral pneumothorax status post chest tube placement. Plan: Tolerated tube feeding @ 50 cc/hr Follow-up with laboratory and cultures decrease Hydrocortisone 50 mg IV every 12 Continue to monitor off abx Poor prognosis Guillaume Hawk MD Jul 10, 2020 16:39
--- NOTE | 2020-07-10 17:02 | Pre-Procedure Note/Attestation ---
Pre-Procedure Note/Attestation Complete Prior to Procedure Planned Procedure: left Procedure Narrative: Chest vent Indications for Procedure Pre-Operative Diagnosis: PTX Attestation I attest that I discussed the nature of the procedure; its benefits; risks and complications; and alternatives (and the risks and benefits of such alternatives), prior to the procedure, with the patient (or the patient's legal business representative). I attest that, if there was a reasonable possibility of needing a blood transfusion, the patient (or the patient's legal business representative) was given the [facility] standardized written summary, pursuant to the Billy Reymundo Blood Safety Act ([place] Health and Safety Code # 1645, as amended). I attest that I re-evaluated the patient just prior to the surgery and that there has been no change in the patient's H&P, except as documented below: Emergency consent by Huey Wheeler MD Jul 10, 2020 17:02
--- NOTE | 2020-07-10 17:03 | Brief Operative Note ---
Immediate Post Operative Note Operative Note Pre-op Diagnosis: PTX Procedure: L chest vent Post-op Diagnosis: same as pre-op Surgeon: Abhijeet Last Anesthesia: local Specimen: none Complications: none Fluids: none Drains: other - thoravent Implant(s) used?: No Huey Last MD Jul 10, 2020 17:03
--- NOTE | 2020-07-10 17:41 | Cardiology Progress Note ---
Assessment/Plan Assessment/Plan sepsis respiratory failure ards renal insuf bacteremia abn cardiac enzyme due to demand sinus rafael stable thrombocytopenia resolved hypernatremia pneumothorax now s/p chest tube vent support abx may be mobilizing her fluids ct in place tsh seems fine remains off pressor still at this time hr inthe 60's s no sig pauses on tele tele personally reviewed awiat public guardian for code status adn soncent for trach d/w rn Subjective Subjective on a vent not communicative AWAKE Objective Last 24 Hour Vital Signs Date Time Temp Pulse Resp B/P (MAP) Pulse Ox O2 Delivery O2 Flow Rate FiO2 07/10/20 17:00 77 29 112/65 (81) 95 07/10/20 16:00 53 24 105/65 (78) 97 07/10/20 16:00 67 07/10/20 16:00 60 07/10/20 15:10 78 24 55 07/10/20 15:00 78 19 94/74 (81) 97 07/10/20 14:00 69 24 104/71 (82) 94 07/10/20 13:00 67 28 99/69 (79) 94 07/10/20 12:40 74 28 55 07/10/20 12:00 98.6 55 23 107/61 (76) 95 07/10/20 12:00 68 07/10/20 12:00 Mechanical Ventilator Mechanical Ventilator Mechanical Ventilator 07/10/20 12:00 60 07/10/20 11:05 56 27 55 07/10/20 11:00 53 23 106/58 (74) 94 07/10/20 10:00 57 34 121/65 (83) 100 07/10/20 09:20 58 25 129/87 (101) 93 07/10/20 09:00 54 25 146/100 (115) 96 07/10/20 08:30 46 25 106/64 (78) 95 07/10/20 08:00 62 07/10/20 08:00 60 07/10/20 08:00 Mechanical Ventilator Mechanical Ventilator Mechanical Ventilator 07/10/20 08:00 43 24 114/59 (77) 95 07/10/20 07:30 54 25 117/60 (79) 94 07/10/20 07:10 95 24 55 07/10/20 07:00 98.8 46 25 131/71 (91) 95 07/10/20 06:00 48 24 107/60 (76) 95 07/10/20 05:00 54 24 108/63 (78) 95 07/10/20 04:00 52 07/10/20 04:00 98.7 73 27 124/101 (109) 96 07/10/20 04:00 60 07/10/20 04:00 Mechanical Ventilator Mechanical Ventilator Mechanical Ventilator 07/10/20 03:00 57 30 123/70 (87) 97 07/10/20 02:45 70 24 55 07/10/20 02:00 67 24 109/64 (79) 96 07/10/20 01:00 64 24 139/82 (101) 97 07/10/20 00:00 98.3 60 24 132/79 (96) 97 07/10/20 00:00 60 07/10/20 00:00 Mechanical Ventilator Mechanical Ventilator Mechanical Ventilator 07/10/20 00:00 64 07/09/20 23:00 61 24 102/59 (73) 96 07/09/20 22:19 72 24 55 07/09/20 22:00 65 24 134/68 (90) 96 07/09/20 21:00 64 24 118/69 (85) 96 07/09/20 20:00 64 07/09/20 20:00 60 07/09/20 20:00 Mechanical Ventilator Mechanical Ventilator Mechanical Ventilator 07/09/20 20:00 98.7 62 24 126/104 (111) 96 07/09/20 19:22 70 24 55 07/09/20 19:00 58 25 127/98 (108) 97 07/09/20 18:00 46 27 92/57 (69) 95 Intake and Output 07/09/20 07/10/20 19:00 07:00 Intake Total 800 ml 400 ml Output Total 610 ml 555 ml Balance 190 ml -155 ml Free Water 100 ml 200 ml IV Total 100 ml Tube Feeding 600 ml 200 ml Output Urine Total 590 ml 545 ml Chest Tube Drainage Total 20 ml 10 ml # Bowel Movements 4 1 Laboratory Tests Test 07/09/20 18:28 07/09/20 20:05 07/09/20 23:34 07/10/20 03:25 POC Whole Blood Glucose 183 MG/DL (74-106) H Pending 171 MG/DL (74-106) H Sodium Level 147 MMOL/L (136-145) H Potassium Level 3.4 MMOL/L (3.5-5.1) L Chloride Level 113 MMOL/L (98-107) H Carbon Dioxide Level 26 MMOL/L (21-32) Anion Gap 8 mmol/L (5-15) Blood Urea Nitrogen 19 mg/dL (7-18) H Creatinine 0.7 MG/DL (0.55-1.30) Estimat Glomerular Filtration Rate > 60 mL/min (>60) Glucose Level 180 MG/DL (74-106) H Calcium Level 7.3 MG/DL (8.5-10.1) L Phosphorus Level 2.1 MG/DL (2.5-4.9) L Magnesium Level 1.7 MG/DL (1.8-2.4) L Total Bilirubin 0.5 MG/DL (0.2-1.0) Aspartate Amino Transf (AST/SGOT) 18 U/L (15-37) Alanine Aminotransferase (ALT/SGPT) 26 U/L (12-78) Alkaline Phosphatase 61 U/L (46-116) Total Protein 4.8 G/DL (6.4-8.2) L Albumin 1.3 G/DL (3.4-5.0) L Globulin 3.5 g/dL Albumin/Globulin Ratio 0.4 (1.0-2.7) L Test 07/10/20 05:33 07/10/20 12:03 POC Whole Blood Glucose Pending 138 MG/DL (74-106) H Josue Pantoja MD Jul 10, 2020 17:41
[2020-07-10] MEDS: Acetaminophen 650mg/20.3ml GT PRN (17:46)
--- NOTE | 2020-07-10 18:04 | Diagnostic Imaging Report ---
Indication: Pneumothorax, status post tube placement for such Technique: One view of the chest Comparison: Two and one half hours earlier Findings: Interim placement of a chest vent catheter in the left hemithorax in the first intercostal space. This appears well-positioned. Interim partial reexpansion of the left lung with the evacuation of most of the left pneumothorax. Small upper lung pneumothorax persists, and there may also be a basilar component of pneumothorax. Bilateral parenchymal infiltrates versus edema persists. Stable satisfactory positions of endotracheal tube and Impression: Markedly improved although persistent left pneumothorax, status post chest vent catheter placement. Recommend follow-up radiographs
--- NOTE | 2020-07-10 18:13 | Diagnostic Imaging Report ---
Indication: Pneumothorax after intubation Technique: Are performed at bedside. Emergency physician consent obtained preprocedure. Prior imaging studies reviewed. Procedural timeout performed. The left chest was sterilely prepped and draped. Local anesthesia with 1% lidocaine. Using anatomic landmarks common the first intercostal space was punctured using a thoracic vent catheter. This was deployed in the usual fashion. The stylette was removed. Some of the pneumothorax was evacuated using a syringe. The catheter was fixed to the skin, and placed to Pleur-evac suction. Follow-up radiograph performed after aspiration, demonstrating partial evacuation of the pneumothorax. The patient tolerated the procedure well, without immediate complication. No fluoroscopy utilized. Single postprocedure radiograph was obtained Comparison: 2 hours earlier Findings: Completion image demonstrates satisfactory position of the ventricles are in the first intercostal space, and partial reduction of previously demonstrated large left tension pneumothorax Impression: Apparently successful left chest vent catheter placement for treatment of large tension pneumothorax
--- NOTE | 2020-07-10 20:18 | NUR ---
NURSE NOTES: INFORMED C.N THAT R.T NOTED DECREASED VOLUME FROM CUFF. PT REPOSITIONED, CUFF PRESSURE CHECKED AND ADJUSTED. WILL MONITOR CLOSELY. F/U CHEST CHEST XRAY.
--- NOTE | 2020-07-10 20:26 | NUR ---
HAND-OFF: Report given to Kiko CROCKETT/[facility].
--- NOTE | 2020-07-10 20:29 | Diagnostic Imaging Report ---
INDICATION: Pneumothorax COMPARISON: 07/08/2020. Same day study at 1635. Findings/impression: Previously identified left apical pneumothorax is not identified. No clinically significant pneumothorax visualized. Tip of the endotracheal tube is 2.2 cm above the joseph. Unchanged positioning of the left upper extremity PICC line. Left chest tube is present. Diffuse bilateral airspace opacities, increased in the left lung compared to the prior study. Small bilateral pleural effusions.
--- NOTE | 2020-07-10 20:30 | NUR ---
NURSE NOTES: Received patient from Maribel LUJAN. Patient is observed to be awake and alert. Patient opens eyes spontaneously, tracks with her eyes and does respond to stimuli. Patient is developmentally disabled, it is difficult to determine her ability to follow commands. Patient does not appear in any acute distress however, when inspected the site of the pleura vac, patient did grimace with pain otherwise, patient remains without acute distress. Patient is with a L thoravent as well that illicits the same response upon assessing the site. Patient is being monitored on the airport maintenance chief with VS HR 67 BP 113/67 SPO2 98% RR 27. Patient is orally intubated with ETT 7.5, with vent settings AC 24, TV 500 FIO2 50% no PEEP. Oral care was performed. Patient with GT that is currently clamped at the moment and NPO. Patient is with a Gregorio catheter draining good amounts of cloudy urine to gravity. Patient has a JODY that is patient and asymptomatic that is TKO. R chest tube is draining serous drainage on the R and thoravent is on the L chest. Safety measures are in place with bed locked in the lowest position, on a P200 mattress, seizure precautions and side rails up x 2. Will continue to monitor and carry out MD plan of care.
[2020-07-10] MEDS: Dyna-Hex 2% Top Sol 2oz TOPIC SCH (22:01)
[2020-07-10] MEDS ORDERED: Etomidate 40mg/20ml Inj IV ONE (22:09)
[2020-07-10] MEDS ORDERED: NS Irrig 1000ml ONE (22:26)
[2020-07-10] MEDS ORDERED: Tubing IV Secondary IV ONE (22:26)
[2020-07-11] VITALS (24 sets, daily range): BP systolic 87–126; BP diastolic 38–91
--- NOTE | 2020-07-11 00:11 | NUR ---
NURSE NOTES: Patient resting comfortably bedside. Patient does not appear to be in any acute distress however, patient does occasionally desaturate. RT reported that balloon is busted on ETT and may need to be reintubated. Patient was reintubated on 07/10/20 so not sure if this is correct. Patient is being monitored on the panel monitor with VSS. Patient continues on the ventilator with vent settings AC 24 TV 500 FIO2 50%. Oral care was performed. Patient continues to be NPO. Patient is with a Gregorio catheter draining good amounts of cloudy urine to gravity. Patient has a JODY that is patient running TKO. R chest tube is draining serous drainage on the R and thoravent is on the L chest. Safety measures are in place with bed locked in the lowest position, on a P200 mattress, seizure precautions and side rails up x 2. Will continue to monitor and carry out MD plan of care.
--- NOTE | 2020-07-11 04:14 | NUR ---
NURSE NOTES: At patient check, patient noted to be wet. Gown, slider and area all around R chest tube was wet. Followed the pleura vac that was bubbling in the chamber from to the patient and noted very little output from chest tube site because it appears to be leaking onto bed. Upon assessing, noted patient pulling on chest tube. Immediately initiated BL soft wrist restraints for safety. Changed patient's gown, requested for one of the nurse's to enter in STAT CXR to determine extent of chest tube removal and will call MD for follow up. O2 sats have been DEC. VS remain stable at this time, patient is AAO. Will monitor patient closely and await the CXR and notify MD immediately when available.
--- NOTE | 2020-07-11 05:01 | Diagnostic Imaging Report ---
EXAM: XR Chest, 1 View CLINICAL HISTORY: Bilateral chest tube. Nurse found patient pulling on the right-sided chest tube and the bed wet. TECHNIQUE: Frontal view of the chest. COMPARISON: 07/10/2020 chest x-ray at 8 PM FINDINGS: Lungs: See below. Pleural space: No pneumothorax is apparent. In the current projection, haziness to the bilateral lungs could reflect presence of layering pleural effusions. This is superimposed on bilateral pulmonary infiltrates that are marginally improved on the left in the interval. Heart: Heart and mediastinal contours are unchanged, showing borderline cardiac enlargement. Mediastinum: Unremarkable. Bones/joints: No acute or aggressive osseous lesions. Tubes, lines and devices: Partially imaged tubing along the right chest wall overlaps with quality assurance monitor chassis leads. No chest tube is visualized within the right pleural space. There is a second chest tube directed towards the left lung apex that appears in good position on the available projection. A left PICC line is present with the tip projecting over the distal SVC near the cavoatrial junction. Patient remains intubated with ET tube terminating approximately 2 cm above the joseph. IMPRESSION: 1. No right chest tube is identified in the right hemithorax. It has probably backed out. Consider repositioning if clinically appropriate. 2. The left chest tube appears unchanged and in apparent satisfactory position projecting over the left lung apex. 3. Stable endotracheal intubation with slight interval improvement in aeration of the lungs bilaterally, more notable on the left but with diffuse pulmonary infiltrates still present. <MYCVCSECTION> Communications: 07/11/20 05:07 Call Doctor Regarding Above results, called [employer] INSTRUCTIONAL ASSISTANTTAI Camejo on 07/11 05:07 (-07:00)
--- NOTE | 2020-07-11 05:20 | NUR ---
NURSE NOTES: Spoke to the Radiologist re: STAT CXR. Chest tube is not seen entering the pleural space. Only seen in the subcutaneous fat. L chest tube is unchanged. Will call Dr. Chalino galdamez.
[2020-07-11] MEDS: NovoLOG Insulin Flexpen SUBQ SCH ×5 (05:23→23:37)
--- NOTE | 2020-07-11 05:37 | NUR ---
NURSE NOTES: Called and LM for Dr. Allred re: update re: chest tube placement. Will await additional directions to from .
--- NOTE | 2020-07-11 06:38 | NUR ---
NURSE NOTES: Followed up regarding the CXR results with Dr. Allred. Will await instructions as to who will replace chest tube.
--- NOTE | 2020-07-11 07:36 | NUR ---
NURSE NOTES: Per Dr. Allred, no Chest Tube reinsertion. Will endorse to AM Charge to call ED MD to remove Chest Tube.
--- NOTE | 2020-07-11 07:37 | NUR ---
NURSE NOTES: REPORT RECEIVED FROM Kiko CROCKETT. PT DROWSY, AWAKENS TO NAME, TRACKS WITH HER EYES. SINUS BRADYCARDIA ON PATENT PROSECUTION ATTORNEY, HR 55. PT ORALLY INTUBATED, ETT 7.5, 23CM AT THE LIP LINE. AC 24, TV 500, FI02 50%. RECEIVED REPORT THAT PT'S ETT BALLOON IS POPPED; WILL FOLLOW UP WITH RT AND MD. O2SAT 98% AT THIS TIME. G TUBE NOTED. TUBE FEEDING VITAL A.F 1.2, RUNNING AT 50ML/HR. HOB >30, ASPIRATION PRECAUTIONS MAINTAINED. LANG IN PLACE DRAINING YELLOW URINE TO UROMETER. LEFT CHEST PLEURA VENT NOTED, TO SUCTION, WITH BUBBLING NOTED IN COLLECTION SYSTEM. ENDORSED THAT RIGHT CHEST TUBE WAS SLIGHTLY PULLED OUT AND IS NO LONGER IN THE PLEURAL SPACE, BUT INSTEAD IN THE SUBCUTANEOUS FAT. MD MADE AWARE AND AWAITING FURTHER INSTRUCTIONS. SKIN - SEE ASSESSMENT. TRACE EDEMA NOTED ON FEET. CONTACT ISOLATION MAINTAINED. PT RECEIVED AND MAINTAINED ON BL SOFT WRIST RESTRAINTS FOR SAFETY. BED LOCKED AND IN LOWEST POSITION. WILL CONTINUE TO MONITOR.
--- NOTE | 2020-07-11 07:41 | NUR ---
HAND-OFF: Report given to TAI Brown. Endorsed to AM RN that chest tube was pulled by patient. Dr. Allred has responded and does not want it reinserted. Patient with VSS and not in any acute distress.
--- NOTE | 2020-07-11 08:08 | NUR ---
NURSE NOTES: Dr Allred at bedside assessing pt. Per Dr Allred, Pt no longer requires the Rt chest tube and advises to have it pulled out. Will talk to Dr Gordon when he makes his rounds. Also discussed the ETT balloon, in which we are to just monitor pt's oxygenation. Will not reintubate at this time. Will continue to monitor.
--- NOTE | 2020-07-11 08:11 | General Progress Note ---
Subjective ROS Limited/Unobtainable: No Allergies: Coded Allergies: No Known Allergies (Unverified , 10/16/18) Objective Last 24 Hour Vital Signs Date Time Temp Pulse Resp B/P (MAP) Pulse Ox O2 Delivery O2 Flow Rate FiO2 07/11/20 07:20 56 27 80 07/11/20 07:00 60 29 108/54 (72) 100 07/11/20 06:00 62 30 101/66 (78) 98 07/11/20 05:00 61 28 96/74 (81) 96 07/11/20 04:00 64 07/11/20 04:00 50 07/11/20 04:00 98.0 55 28 115/75 (88) 99 07/11/20 04:00 Mechanical Ventilator Mechanical Ventilator 07/11/20 03:00 57 29 100/84 (89) 99 07/11/20 02:53 57 27 80 07/11/20 02:00 55 29 114/91 (99) 97 07/11/20 01:00 58 29 103/77 (86) 98 07/11/20 00:00 Mechanical Ventilator Mechanical Ventilator 07/11/20 00:00 45 07/11/20 00:00 98.4 45 24 122/72 (89) 100 07/10/20 23:00 47 23 121/61 (81) 97 07/10/20 22:53 49 26 80 07/10/20 22:00 62 29 127/90 (102) 99 07/10/20 21:00 60 28 121/84 (96) 97 07/10/20 20:00 50 07/10/20 20:00 67 27 113/67 (82) 98 07/10/20 20:00 Mechanical Ventilator Mechanical Ventilator 07/10/20 19:00 98.9 58 26 115/59 (77) 98 07/10/20 19:00 56 27 80 07/10/20 18:00 53 20 100/72 (81) 99 07/10/20 18:00 57 23 100/72 (81) 98 07/10/20 17:00 77 29 112/65 (81) 95 07/10/20 16:00 Mechanical Ventilator Mechanical Ventilator 07/10/20 16:00 53 24 105/65 (78) 97 07/10/20 16:00 67 07/10/20 16:00 60 07/10/20 15:10 78 24 55 07/10/20 15:00 78 19 94/74 (81) 97 07/10/20 14:00 69 24 104/71 (82) 94 07/10/20 13:00 67 28 99/69 (79) 94 07/10/20 12:40 74 28 55 07/10/20 12:00 98.6 55 23 107/61 (76) 95 07/10/20 12:00 68 07/10/20 12:00 Mechanical Ventilator Mechanical Ventilator Mechanical Ventilator 07/10/20 12:00 60 07/10/20 11:05 56 27 55 07/10/20 11:00 53 23 106/58 (74) 94 07/10/20 10:00 57 34 121/65 (83) 100 07/10/20 09:20 58 25 129/87 (101) 93 07/10/20 09:00 54 25 146/100 (115) 96 07/10/20 08:30 46 25 106/64 (78) 95 Intake and Output 07/10/20 07/11/20 19:00 07:00 Intake Total 527.5 ml 350 ml Output Total 665 ml 925 ml Balance -137.5 ml -575 ml IV Total 487.5 ml Tube Feeding 150 ml Other 40 ml 200 ml Output Urine Total 665 ml 925 ml # Bowel Movements 2 Laboratory Tests 07/10/20 12:03: POC Whole Blood Glucose 138H 07/10/20 17:49: POC Whole Blood Glucose 153H 07/10/20 21:50: POC Whole Blood Glucose 122H 07/11/20 00:53: POC Whole Blood Glucose 109H Height (Feet): 5 Height (Inches): 3.00 Weight (Pounds): 172 General Appearance: no apparent distress EENT: normal ENT inspection Neck: supple Cardiovascular: normal rate Respiratory/Chest: decreased breath sounds Abdomen: normal bowel sounds, non tender, soft Extremities: non-tender Assessment/Plan Status: stable, not improved, unchanged Assessment/Plan: 1. History of Down syndrome. 2. Dysphagia with G-tube. 3. Seizure disorder. 4. Hypothyroidism. 5. LEANN. 6. Pneumonia. 7. Sepsis. fu H&H prn blood transfusion to keep HGB above 7 ppi GTF hold GI procedures for now pulled chest tube pending possible Trach Nehemiah Perez MD Jul 11, 2020 08:11
[2020-07-11] MEDS: Pantoprazole Inj IVP SCH ×2 (08:50→20:30)
[2020-07-11] MEDS: Hydrocortisone 100mg Inj IV SCH ×2 (08:50→20:30)
[2020-07-11] MEDS: Levemir Flexpen SUBQ SCH ×2 (08:51→20:32)
--- NOTE | 2020-07-11 09:00 | NUR ---
NURSE NOTES: Rt chest tube removed by Dr Gordon. Pt tolerated well.
--- NOTE | 2020-07-11 09:26 | Surgery Progress Note ---
Surgery Progress Note Subjective Additional Comments right chest tube removed no n/v left ptx s/p tube Objective Last 24 Hour Vital Signs Date Time Temp Pulse Resp B/P (MAP) Pulse Ox O2 Delivery O2 Flow Rate FiO2 07/11/20 07:20 56 27 80 07/11/20 07:00 60 29 108/54 (72) 100 07/11/20 06:00 62 30 101/66 (78) 98 07/11/20 05:00 61 28 96/74 (81) 96 07/11/20 04:00 64 07/11/20 04:00 50 07/11/20 04:00 98.0 55 28 115/75 (88) 99 07/11/20 04:00 Mechanical Ventilator Mechanical Ventilator 07/11/20 03:00 57 29 100/84 (89) 99 07/11/20 02:53 57 27 80 07/11/20 02:00 55 29 114/91 (99) 97 07/11/20 01:00 58 29 103/77 (86) 98 07/11/20 00:00 Mechanical Ventilator Mechanical Ventilator 07/11/20 00:00 45 07/11/20 00:00 98.4 45 24 122/72 (89) 100 07/10/20 23:00 47 23 121/61 (81) 97 07/10/20 22:53 49 26 80 07/10/20 22:00 62 29 127/90 (102) 99 07/10/20 21:00 60 28 121/84 (96) 97 07/10/20 20:00 50 07/10/20 20:00 67 27 113/67 (82) 98 07/10/20 20:00 Mechanical Ventilator Mechanical Ventilator 07/10/20 19:00 98.9 58 26 115/59 (77) 98 07/10/20 19:00 56 27 80 07/10/20 18:00 53 20 100/72 (81) 99 07/10/20 18:00 57 23 100/72 (81) 98 07/10/20 17:00 77 29 112/65 (81) 95 07/10/20 16:00 Mechanical Ventilator Mechanical Ventilator 07/10/20 16:00 53 24 105/65 (78) 97 07/10/20 16:00 67 07/10/20 16:00 60 07/10/20 15:10 78 24 55 07/10/20 15:00 78 19 94/74 (81) 97 07/10/20 14:00 69 24 104/71 (82) 94 07/10/20 13:00 67 28 99/69 (79) 94 07/10/20 12:40 74 28 55 07/10/20 12:00 98.6 55 23 107/61 (76) 95 07/10/20 12:00 68 07/10/20 12:00 Mechanical Ventilator Mechanical Ventilator Mechanical Ventilator 07/10/20 12:00 60 07/10/20 11:05 56 27 55 07/10/20 11:00 53 23 106/58 (74) 94 07/10/20 10:00 57 34 121/65 (83) 100 I&O Intake and Output 07/10/20 07/11/20 19:00 07:00 Intake Total 527.5 ml 350 ml Output Total 665 ml 925 ml Balance -137.5 ml -575 ml IV Total 487.5 ml Tube Feeding 150 ml Other 40 ml 200 ml Output Urine Total 665 ml 925 ml # Bowel Movements 2 Cardiovascular: RSR Respiratory: decreased breath sounds Abdomen: non-tender, present bowel sounds Extremities: no edema, no tenderness, no cyanosis Laboratory Tests Test 07/10/20 12:03 07/10/20 17:49 07/10/20 21:50 07/11/20 00:53 POC Whole Blood Glucose 138 MG/DL (74-106) H 153 MG/DL (74-106) H 122 MG/DL (74-106) H 109 MG/DL (74-106) H Test 07/11/20 08:49 POC Whole Blood Glucose 120 MG/DL (74-106) H Plan Problems: (1) Respiratory distress Assessment & Plan: Respiratory insufficiency requiring prolonged ventilator support. Patient on minimal vent settings right now currently in stable but unfortunately not safe for extubation. Tracheostomy is indicated recommended. I discussed case with pulmonology team ICU team medical teams. Patient unable to make decisions and her current condition and given her history. The care team has been contacted and will be reviewed for evaluation and consideration of the tracheostomy. If consented I think it is reasonable for tracheostomy given patient's current CODE STATUS care plan and goals of care. Extubation his current status is potentially high risk for reintubation emergency complication. We will plan for tracheostomy if consent is obtained. Thank you for let me participate patient's care will follow with recommendations (2) Encephalopathy chronic (3) Dysphagia (4) Down's syndrome (5) Sepsis (6) Acute respiratory failure (7) Pneumonia (8) Trisomy 21, Down syndrome (9) LEANN (acute kidney injury) (10) Bacteremia (11) Hypokalemia (12) Anemia (13) Diarrhea (14) Hypernatremia (15) Pneumothorax (16) Pneumothorax, right Assessment & Plan: right ptx. s/p chest tube tube removed 07/11 left ptx tube placed 07/10 (17) Cardiac arrest (18) ARDS (adult respiratory distress syndrome) (19) Septic shock (20) HCAP (healthcare-associated pneumonia) (21) Respiratory failure requiring intubation (22) Seizure disorder (23) Hypothyroidism Mark Gordon Jul 11, 2020 09:25
--- NOTE | 2020-07-11 09:42 | Infectious Diseases Prog Note ---
Assessment/Plan ASSESSMENT: sp code blue 06/03 Septic Shock; SP Fever, recurrent- low grade Leukocytosis; persistent/fluctuating, SP -06/27 Bcx NTD -06/17 u/a no pyuria -06/16 Bcx NTD (Picc line) -06/14 Bcx NTD ucx Neg sp cx C. parapsilopsis -06/03 u/a no pyuria Pneumonia.- COVID 19 neg x3 Acute hypoxic resp failure on VM> NRB 15l 100%; hypoxic on ABG> now VDRF 06/03- Fio2 80% >100% 06/05> 60% 06/09 >80% 06/10 >95% 06/18 >90% 06/22 >60% 06/23 R tension Pneumothroax sp CT 06/29 -06/30 CXR: Interim complete reexpansion of right lung without evidence of residual pneumothorax. Bilateral diffuse and extensive infiltrates. Markedly improved chest wall subcutaneous emphysema -06/29 CXR: Interim reexpansion of previously demonstrated right pneumothorax, status post large bore chest tube placement. -06/22 CXR: Improved aeration of both lungs. -06/13 CXR:Small bilateral pleural effusions with minor edema. Stable edema with mild worsening in the degree of pleural effusion on the right. -06/09 sp cx Neg 06/08 CXR: Extensive bilateral interstitial and airspace disease appears similar to the prior exam. Moderate to large bilateral pleural effusions appear unchanged. 06/05 CXR: Increasing left upper lobe dense consolidation and likely increasing bilateral pleural fluid. Persistent diffuse dense consolidation el sewhere -06/03 sp cx normal resp marie -06/02 CXR: Increased atelectasis of the right lung, since prior e xam of 3 days earlier. New or increased right pleural effusion. Increased left basilar consolidation and/or pleural fluid -COVID Rapid PCR neg 05/31, 05/31, 06/03 -05/30 spc x Group G strep -05/30 CXR: Reduced lung volumes. Patchy bilateral predominantly interstitial pulmonary opacities. Could be from edema and/or pneumonia. There is a broader differential. -legionella ag urine, blasto ab, Histo ab, HIV ab screen, FRANCIS, ANCA neg Persistent, high grade bacteremia- -05/30 Bcx 4/4 sets S. haemolyticus; 05/31 Bcx 3/4 S/ epi; 06/04 Bcx 1.4 S. warnerri; 06/06 Bcx Neg -2d echo: no vegetaions seen ua/ wbc 10-15, nit neg, leuk +1; ucx Neg LEANN; -supratherapeutic vanco levels -Seizure disorder. - Hypothyroidism. - Down syndrome. History of PEG tube placement. IN resident PLAN: Monitor off abx as she is aseptic 06/22 SP Meropenem #18, IV Amikacin #7 06/12/20 SP Daptomycin #11 06/10 SP MIcafungin #7, Linezolid #5 06/05 SP Azithromycin #7/7 06/03 SP Ceftriaxone #2 06/02 SP IV Vancomycin #4, Zosyn #4 05/30 SP Cefepime x1, Flagyl x1 - Monitor CBC, BMP. .f/u cx - COVID neg x3 - Monitor chest x-ray. - Monitor the patient's clinical course and labs. Based on those, we will do further recommendation. -f/u Fungitell, asp ag, flow cytometry -poor prognosis Thank you, Dr. Allred, for allowing me to participate in the care of this patient. I will follow the patient with you at this hospitalization. Discussed with RN Subjective Allergies: Coded Allergies: No Known Allergies (Unverified , 10/16/18) Afebrile On Vent No leukocytosis MOLLY Objective Last 24 Hour Vital Signs Date Time Temp Pulse Resp B/P (MAP) Pulse Ox O2 Delivery O2 Flow Rate FiO2 07/11/20 09:00 70 32 126/70 (88) 99 07/11/20 08:00 Mechanical Ventilator Mechanical Ventilator 07/11/20 08:00 50 07/11/20 08:00 97.7 57 30 123/61 (81) 99 07/11/20 07:20 56 27 80 07/11/20 07:00 60 29 108/54 (72) 100 07/11/20 06:00 62 30 101/66 (78) 98 07/11/20 05:00 61 28 96/74 (81) 96 07/11/20 04:00 64 07/11/20 04:00 50 07/11/20 04:00 98.0 55 28 115/75 (88) 99 07/11/20 04:00 Mechanical Ventilator Mechanical Ventilator 07/11/20 03:00 57 29 100/84 (89) 99 07/11/20 02:53 57 27 80 07/11/20 02:00 55 29 114/91 (99) 97 07/11/20 01:00 58 29 103/77 (86) 98 07/11/20 00:00 Mechanical Ventilator Mechanical Ventilator 07/11/20 00:00 45 07/11/20 00:00 98.4 45 24 122/72 (89) 100 07/10/20 23:00 47 23 121/61 (81) 97 07/10/20 22:53 49 26 80 07/10/20 22:00 62 29 127/90 (102) 99 07/10/20 21:00 60 28 121/84 (96) 97 07/10/20 20:00 50 07/10/20 20:00 67 27 113/67 (82) 98 07/10/20 20:00 Mechanical Ventilator Mechanical Ventilator 07/10/20 19:00 98.9 58 26 115/59 (77) 98 07/10/20 19:00 56 27 80 07/10/20 18:00 53 20 100/72 (81) 99 07/10/20 18:00 57 23 100/72 (81) 98 07/10/20 17:00 77 29 112/65 (81) 95 07/10/20 16:00 Mechanical Ventilator Mechanical Ventilator 07/10/20 16:00 53 24 105/65 (78) 97 07/10/20 16:00 67 07/10/20 16:00 60 07/10/20 15:10 78 24 55 07/10/20 15:00 78 19 94/74 (81) 97 07/10/20 14:00 69 24 104/71 (82) 94 07/10/20 13:00 67 28 99/69 (79) 94 07/10/20 12:40 74 28 55 07/10/20 12:00 98.6 55 23 107/61 (76) 95 07/10/20 12:00 68 07/10/20 12:00 Mechanical Ventilator Mechanical Ventilator Mechanical Ventilator 07/10/20 12:00 60 07/10/20 11:05 56 27 55 07/10/20 11:00 53 23 106/58 (74) 94 07/10/20 10:00 57 34 121/65 (83) 100 Height (Feet): 5 Height (Inches): 3.00 Weight (Pounds): 172 GEN: NAD, On Vent 50% O2 HEENT: NCAT, Intubated, Pulm: Equal chest rise and fall B/L, No accessory muscle use ABD: Soft, ND SKIN: Exposed skin with no rash, Normal in color Laboratory Tests Test 07/10/20 12:03 07/10/20 17:49 07/10/20 21:50 07/11/20 00:53 POC Whole Blood Glucose 138 MG/DL (74-106) H 153 MG/DL (74-106) H 122 MG/DL (74-106) H 109 MG/DL (74-106) H Test 07/11/20 08:49 POC Whole Blood Glucose 120 MG/DL (74-106) H Current Medications Medications (Trade) Dose Ordered Sig/Katy Route PRN Reason Start Time Stop Time Status Last Admin Dose Admin Acetaminophen (Tylenol) 650 mg Q4H PRN GT For Pain 07/01/20 17:15 07/31/20 17:14 07/10/20 17:46 Chlorhexidine Gluconate (Alla-Hex 2%) 1 applic DAILY@2000 TOPIC 06/08/20 20:00 09/06/20 19:59 07/10/20 22:01 Clotrimazole (Lotrimin) 1 applic Q12HR TOPIC 06/07/20 13:00 09/05/20 12:59 07/11/20 08:50 Dextrose (Dextrose 50%) 25 ml Q30M PRN IV Hypoglycemia 06/03/20 11:30 08/28/20 11:29 Dextrose (Dextrose 50%) 50 ml Q30M PRN IV Hypoglycemia 06/03/20 11:30 08/28/20 11:29 Hydrocortisone (Solu-CORTEF) 50 mg EVERY 12 HOURS IV 07/10/20 21:00 10/04/20 20:59 07/11/20 08:50 Insulin Aspart (NovoLOG) Q6HR SUBQ 06/26/20 12:00 09/24/20 11:59 07/10/20 17:51 Insulin Detemir (Levemir) 10 units Q12HR SUBQ 06/26/20 10:00 09/24/20 09:59 07/11/20 08:51 Levothyroxine Sodium (Synthroid) 75 mcg DAILY@0630 GT 07/08/20 06:30 08/07/20 06:29 07/11/20 05:04 Loperamide HCl (Imodium) 2 mg Q6H PRN NG Diarrhea 06/24/20 10:30 07/24/20 10:29 07/01/20 11:41 Pantoprazole (Protonix) 40 mg EVERY 12 HOURS IVP 07/06/20 21:00 08/05/20 20:59 07/11/20 08:50 Potassium Chloride (K-Dur) 40 meq EVERY 12 HOURS GT 07/04/20 21:00 09/26/20 12:14 07/11/20 08:50 Chencho Corley MD Jul 11, 2020 09:41
--- NOTE | 2020-07-11 10:00 | NUR ---
NURSE NOTES: Pt turned and repositioned. No distress noted at this time. Left pleural vent remains to suction.
--- NOTE | 2020-07-11 12:00 | NUR ---
NURSE NOTES: Pt turned and repositioned. Oral care done. BS 111, no insulin coverage given per sliding scale.
--- NOTE | 2020-07-11 13:02 | Internal Med Progress Note ---
Subjective Date of Service: Jul 11, 2020 Physician Name Joni Copeland Attending Physician Elayne Allred MD Current Medications Medications (Trade) Dose Ordered Sig/Katy Route PRN Reason Start Time Stop Time Status Last Admin Dose Admin Acetaminophen (Tylenol) 650 mg Q4H PRN GT For Pain 07/01/20 17:15 07/31/20 17:14 07/10/20 17:46 Chlorhexidine Gluconate (Alla-Hex 2%) 1 applic DAILY@2000 TOPIC 06/08/20 20:00 09/06/20 19:59 07/10/20 22:01 Clotrimazole (Lotrimin) 1 applic Q12HR TOPIC 06/07/20 13:00 09/05/20 12:59 07/11/20 08:50 Dextrose (Dextrose 50%) 25 ml Q30M PRN IV Hypoglycemia 06/03/20 11:30 08/28/20 11:29 Dextrose (Dextrose 50%) 50 ml Q30M PRN IV Hypoglycemia 06/03/20 11:30 08/28/20 11:29 Hydrocortisone (Solu-CORTEF) 50 mg EVERY 12 HOURS IV 07/10/20 21:00 10/04/20 20:59 07/11/20 08:50 Insulin Aspart (NovoLOG) Q6HR SUBQ 06/26/20 12:00 09/24/20 11:59 07/10/20 17:51 Insulin Detemir (Levemir) 10 units Q12HR SUBQ 06/26/20 10:00 09/24/20 09:59 07/11/20 08:51 Levothyroxine Sodium (Synthroid) 75 mcg DAILY@0630 GT 07/08/20 06:30 08/07/20 06:29 07/11/20 05:04 Loperamide HCl (Imodium) 2 mg Q6H PRN NG Diarrhea 06/24/20 10:30 07/24/20 10:29 07/01/20 11:41 Pantoprazole (Protonix) 40 mg EVERY 12 HOURS IVP 07/06/20 21:00 08/05/20 20:59 07/11/20 08:50 Potassium Chloride (K-Dur) 40 meq EVERY 12 HOURS GT 07/04/20 21:00 09/26/20 12:14 07/11/20 08:50 Allergies: Coded Allergies: No Known Allergies (Unverified , 10/16/18) ROS Limited/Unobtainable: Yes Subjective 59 YO F with Down's syndrome admitted with hypoxia. Now sepsis and pneumonia. Cover for Int Med-DR Hawk. ICU. Intubated and sedated Objective Last Vital Signs Date Time Temp Pulse Resp B/P (MAP) Pulse Ox O2 Delivery O2 Flow Rate FiO2 07/11/20 12:00 50 07/11/20 12:00 59 07/11/20 12:00 Mechanical Ventilator Mechanical Ventilator 07/11/20 12:00 97.9 29 122/70 (87) 97 Laboratory Tests Test 07/10/20 17:49 07/10/20 21:50 07/11/20 00:53 07/11/20 08:49 POC Whole Blood Glucose 153 MG/DL (74-106) H 122 MG/DL (74-106) H 109 MG/DL (74-106) H 120 MG/DL (74-106) H Test 07/11/20 12:17 POC Whole Blood Glucose 111 MG/DL (74-106) H Intake and Output 07/10/20 07/11/20 19:00 07:00 Intake Total 527.5 ml 350 ml Output Total 665 ml 925 ml Balance -137.5 ml -575 ml IV Total 487.5 ml Tube Feeding 150 ml Other 40 ml 200 ml Output Urine Total 665 ml 925 ml # Bowel Movements 2 Objective General Appearance: WD/WN, no apparent distress, alert EENT: PERRL/EOMI, normal ENT inspection Neck: non-tender, normal alignment, supple, normal inspection Cardiovascular: normal peripheral pulses, normal rate, regular rhythm, no gallop/murmur, no JVD Respiratory/Chest: Mech vent; decreased breath sounds, crackles/rales, rhonchi - bilaterally, expiratory wheezing Abdomen: normal bowel sounds, non tender, soft, no organomegaly, no mass Extremities: normal range of motion Neurologic: pipe jeeper II-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 S/P amikacin per ID=Dr Camejo. Pulmonary/C ritical care=DR Allred. COVID NEG (2) Sepsis Assessment & Plan: Staph haemolyticus. S/P amikacin per ID=Dr Camejo (3) Down's syndrome (4) Dysphagia Assessment & Plan: S/P PEG (5) Seizure disorder Assessment & Plan: Continue keppra and depakote (6) Hypothyroidism Assessment & Plan: Continue synthroid (7) Acute respiratory failure Assessment & Plan: Pulmonary = Dr Allred; mech vent (8) Pneumothorax, right Assessment & Plan: Continue chest tube per pulmonary (9) Cardiac arrest Assessment & Plan: 06/03/20-see cardiology note=Joni Lord MD Jul 11, 2020 13:02
[2020-07-11] MEDS ORDERED: NS Irrig 1000ml ONE (13:04)
[2020-07-11] MEDS ORDERED: Tubing IV Secondary IV ONE (13:04)
[2020-07-11] MEDS ORDERED: NS 275ml ONE (13:04)
--- NOTE | 2020-07-11 14:00 | NUR ---
NURSE NOTES: O2sat 100%. No evidence of respiratory distress at this time. Pt turned and repositioned for comfort.
--- NOTE | 2020-07-11 14:20 | Nephrology Progress Note ---
Assessment/Plan Problem List: (1) LEANN (acute kidney injury) (2) Respiratory failure requiring intubation (3) Down's syndrome (4) Seizure disorder (5) Hypothyroidism Assessment Acute renal failure, likely due to hypotension Acute respiratory distress, hypoxia Seizure disorder Hypothyroidism Down syndrome Full code Fluid challenge with IV fluids and albumin Midodrine for BP above 100 systolic Check TSH level Check Correct level Monitor renal parameters Urine studies Per orders Plan July 11: Remains intubated on ventilator. Due for tracheostomy July 13. Has left-sided chest tube. Stable from renal standpoint to view. Continue per consultants. July 10: Remains intubated on ventilator. Electrolyte abnormalities addressed. Supplements ordered. July 09: Intubated on ventilator. Labs reviewed. Potassium supplement given. Remains bradycardic. Continue per consultants. July 08: Labs reviewed. Electrolyte abnormalities addressed. Heart rate remains bradycardic. Continue per cardiology. Continue to monitor renal parameters and electrolytes. July 07: Labs reviewed. Electrolyte abnormalities addressed and replaced. Medication list reviewed. Heart rate remains mid 50s. Continue as is. July 06: On ventilator. Full code. Heart rate low. Will discontinue Midodrin. Continue to rest. Electrolytes within normal limit. Discussed with RN. July 05: Remains intubated. Full code. No plan for tracheostomy yet. Labs reviewed. All acceptable. Continue same management July 04: Labs reviewed. Discussed with RN. Potassium and phosphorus and magnesium replacement ordered. Hemoglobin 9.5. Patient remains full code. Continue per consultants. July 03: Lab reviewed. Renal parameters stable. Full code. Intubated. Electrolyte abnormalities addressed and replacement done. July 02: Lab reviewed. Renal parameters stable. Full code. Intubated. Has right side chest tube. Continue per consultants. July 01: Lab reviewed. Renal parameters stable. Full code. Has right chest tube. Planning process for tracheostomy. Defer to chest and general surgeon. June 30: Labs reviewed. Renal parameters stable. Remains full code. Remains on ventilator. Due for tracheostomy tomorrow. Continue per consultants. Patient has a right chest tube in place at this time. June 29: Labs reviewed. Electrolyte imbalances addressed and supplemented. Remains full code and on ventilator. Continue to monitor renal parameters. Continue per consultants. June 28: Labs reviewed. Serum potassium again low today. Potassium supplement IV and through GT given. Patient remains full code and is on ventilator. Continue per consultants. Continue to monitor electrolytes and renal parameters. June 27: Labs reviewed. Abnormal electrolyte addressed. Remains full code. Remains vented. June 26: Day 27 of hospitalization. Full code. Labs reviewed. Hemoglobin down to 7.5. Electrolyte abnormalities addressed and corrections ordered. Continue to monitor renal parameters. Continue per consultants. Start on Levemir for blood sugar management. Questioning continuation of hydrocortisone? June 25: Labs reviewed. Potassium, phosphorus, hemoglobin, are all low. Potassium and phosphorus IV replacement given. Continue to monitor electrolytes and CBC. Patient remains full code. June 24: Lab reviewed. Low phosphorus low magnesium and low potassium was addressed. Hemoglobin drifting lower. Continue per consultants. Patient remains full code. June 23: Labs reviewed. Patient continues to be on ventilator. D5W for high sodium and also potassium chloride intravenously as supplement given. Hemoglobin 8.4. Continue to monitor electrolytes and renal parameters. June 22: Labs reviewed. Low potassium and high sodium noted. Hemoglobin 8.1 stable. Aim to correct abnormal electrolyte. Continue rest. Will give 2 boluses of D5W 500 cc. June 21: Lab reviewed. Abnormal electrolytes noted and addressed. June 20: Labs reviewed. Potassium supplement given. Patient remains full code. Continue per consultants. June 19: Lab reviewed. Electrolyte abnormalities addressed. Continue per pulmonary and ID. June 18: Lab reviewed. Status unchanged. Serum sodium 151 unchanged. Stable from renal standpoint of view. June 17: Labs reviewed. Status quo. D5W 500 cc IV ordered. Continue to monitor renal parameters. June 16: Status quo. Labs reviewed. Overall condition unchanged. Patient was transfused and hemoglobin higher. Continue current management. Patient remains full code. June 15: Status quo. Overall condition poor. Very low albumin. Edematous. Hypotensive. Hemoglobin lower. Anemia work-up ordered. I favor transfusion 2 units of packed RBCs. Patient remains full code. I favor supportive care only. Will discuss. June 14: Electrolyte abnormalities addressed. Serum creatinine lower. Continue per current management. June 13: Status unchanged. Lab reviewed. Serum potassium 2.7. IV potassium chloride ordered. Serum creatinine low at 1.6 stable. Blood pressure 90s systolic June 12: Status quo. Labs reviewed. Renal parameters stable. Serum creatinine down to 1.6. Medication list reviewed. Continues to be on midodrine. Continue per consultants. June 11: Status quo. Labs reviewed. Electrolytes adjusted. Serum creatinine down to 1.8. Continue per consultants. June 10: Status quo. Labs reviewed. Phosphorus supplement IV given. Serum creatinine 2. Continue per consultants. June 09: Requires less pressors. Albumin bolus given. 1 dose of Lasix IV ordered as the patient severely edematous. Patient serum albumin is very low. Continue per consultants. June 08: Continues to be intubated. Labs reviewed. Serum creatinine 1.9 unchanged. Blood pressure more stable. Off 1 of the pressors. Continue to monitor renal parameters. Continue per consultants. Patient now on hydrocortisone 100 mg every 8 hours. Will decrease IV fluid. Normal saline down to 50 cc an hour. June 07: Intubated. Labs reviewed. Creatinine 1.9 unchanged. Continue same treatment plan. Per consultants. Overall poor prognosis since the patient remains on pressors and her pulmonary status is worsening. June 06: Remains intubated. Labs reviewed. Creatinine 1.9. Blood pressure systolic 90s. Continue per consultants. June 05: Remains intubated. Labs reviewed. Serum creatinine lower to 2. Vancomycin level lower. Remains hypotensive on pressors. Will increase midodrine to 10 mg every 8 hours. Continue per consultants. Continue to monitor renal parameters. June 04: Patient now in ICU. Intubated. On pressors. Labs reviewed. Will increase midodrine. Aim to keep blood pressure over 100 systolic. Will give albumin bolus. Will check vancomycin level which was elevated when checked previously on June 01. Will monitor renal parameters. Continue per consultants. Subjective ROS Limited/Unobtainable: Yes Objective Objective Last 24 Hour Vital Signs Date Time Temp Pulse Resp B/P (MAP) Pulse Ox O2 Delivery O2 Flow Rate FiO2 07/11/20 14:00 58 27 99/44 (62) 100 07/11/20 13:00 64 29 87/38 (54) 99 07/11/20 12:00 50 07/11/20 12:00 59 07/11/20 12:00 Mechanical Ventilator Mechanical Ventilator 07/11/20 12:00 97.9 56 29 122/70 (87) 97 07/11/20 11:25 56 32 80 07/11/20 11:00 49 24 101/64 (76) 99 07/11/20 10:00 50 27 106/62 (77) 100 07/11/20 09:00 70 32 126/70 (88) 99 07/11/20 08:00 Mechanical Ventilator Mechanical Ventilator 07/11/20 08:00 50 07/11/20 08:00 56 07/11/20 08:00 97.7 57 30 123/61 (81) 99 07/11/20 07:20 56 27 80 07/11/20 07:00 60 29 108/54 (72) 100 07/11/20 06:00 62 30 101/66 (78) 98 07/11/20 05:00 61 28 96/74 (81) 96 07/11/20 04:00 64 07/11/20 04:00 50 07/11/20 04:00 98.0 55 28 115/75 (88) 99 07/11/20 04:00 Mechanical Ventilator Mechanical Ventilator 07/11/20 03:00 57 29 100/84 (89) 99 07/11/20 02:53 57 27 80 07/11/20 02:00 55 29 114/91 (99) 97 07/11/20 01:00 58 29 103/77 (86) 98 07/11/20 00:00 Mechanical Ventilator Mechanical Ventilator 07/11/20 00:00 45 07/11/20 00:00 98.4 45 24 122/72 (89) 100 07/10/20 23:00 47 23 121/61 (81) 97 07/10/20 22:53 49 26 80 07/10/20 22:00 62 29 127/90 (102) 99 07/10/20 21:00 60 28 121/84 (96) 97 07/10/20 20:00 50 07/10/20 20:00 67 27 113/67 (82) 98 07/10/20 20:00 Mechanical Ventilator Mechanical Ventilator 07/10/20 19:00 98.9 58 26 115/59 (77) 98 07/10/20 19:00 56 27 80 07/10/20 18:00 53 20 100/72 (81) 99 07/10/20 18:00 57 23 100/72 (81) 98 07/10/20 17:00 77 29 112/65 (81) 95 07/10/20 16:00 Mechanical Ventilator Mechanical Ventilator 07/10/20 16:00 53 24 105/65 (78) 97 07/10/20 16:00 67 10/2/20 16:00 60 07/10/20 15:10 78 24 55 07/10/20 15:00 78 19 94/74 (81) 97 Intake and Output 07/10/20 07/11/20 19:00 07:00 Intake Total 527.5 ml 350 ml Output Total 665 ml 925 ml Balance -137.5 ml -575 ml IV Total 487.5 ml Tube Feeding 150 ml Other 40 ml 200 ml Output Urine Total 665 ml 925 ml # Bowel Movements 2 Laboratory Tests 07/10/20 17:49: POC Whole Blood Glucose 153H 07/10/20 21:50: POC Whole Blood Glucose 122H 07/11/20 00:53: POC Whole Blood Glucose 109H 07/11/20 08:49: POC Whole Blood Glucose 120H 07/11/20 12:17: POC Whole Blood Glucose 111H Height (Feet): 5 Height (Inches): 3.00 Weight (Pounds): 172 General Appearance: no apparent distress EENT: other - Intubated on ventilator Respiratory/Chest: other - Has left chest tube Keron Pitt MD Jul 11, 2020 14:20
--- NOTE | 2020-07-11 15:01 | Cardiology Progress Note ---
Assessment/Plan Assessment/Plan sepsis respiratory failure ards renal insuf bacteremia abn cardiac enzyme due to demand sinus rafael stable thrombocytopenia resolved hypernatremia pneumothorax now s/p chest tube on the left now vent support abx ct in place tsh seems fine remains off pressor still at this time hr inthe 60's s no sig pauses on tele tele personally reviewed trach planned form 07/13 Subjective ROS Limited/Unobtainable: Yes Subjective on a vent not communicative AWAKE Objective Last 24 Hour Vital Signs Date Time Temp Pulse Resp B/P (MAP) Pulse Ox O2 Delivery O2 Flow Rate FiO2 07/11/20 14:00 58 27 99/44 (62) 100 07/11/20 13:00 64 29 87/38 (54) 99 07/11/20 12:00 50 07/11/20 12:00 59 07/11/20 12:00 Mechanical Ventilator Mechanical Ventilator 07/11/20 12:00 97.9 56 29 122/70 (87) 97 07/11/20 11:25 56 32 80 07/11/20 11:00 49 24 101/64 (76) 99 07/11/20 10:00 50 27 106/62 (77) 100 07/11/20 09:00 70 32 126/70 (88) 99 07/11/20 08:00 Mechanical Ventilator Mechanical Ventilator 07/11/20 08:00 50 07/11/20 08:00 56 07/11/20 08:00 97.7 57 30 123/61 (81) 99 07/11/20 07:20 56 27 80 07/11/20 07:00 60 29 108/54 (72) 100 07/11/20 06:00 62 30 101/66 (78) 98 07/11/20 05:00 61 28 96/74 (81) 96 07/11/20 04:00 64 07/11/20 04:00 50 07/11/20 04:00 98.0 55 28 115/75 (88) 99 07/11/20 04:00 Mechanical Ventilator Mechanical Ventilator 07/11/20 03:00 57 29 100/84 (89) 99 07/11/20 02:53 57 27 80 07/11/20 02:00 55 29 114/91 (99) 97 07/11/20 01:00 58 29 103/77 (86) 98 07/11/20 00:00 Mechanical Ventilator Mechanical Ventilator 07/11/20 00:00 45 07/11/20 00:00 98.4 45 24 122/72 (89) 100 07/10/20 23:00 47 23 121/61 (81) 97 07/10/20 22:53 49 26 80 07/10/20 22:00 62 29 127/90 (102) 99 07/10/20 21:00 60 28 121/84 (96) 97 07/10/20 20:00 50 07/10/20 20:00 67 27 113/67 (82) 98 07/10/20 20:00 Mechanical Ventilator Mechanical Ventilator 07/10/20 19:00 98.9 58 26 115/59 (77) 98 07/10/20 19:00 56 27 80 07/10/20 18:00 53 20 100/72 (81) 99 07/10/20 18:00 57 23 100/72 (81) 98 07/10/20 17:00 77 29 112/65 (81) 95 07/10/20 16:00 Mechanical Ventilator Mechanical Ventilator 07/10/20 16:00 53 24 105/65 (78) 97 07/10/20 16:00 67 07/10/20 16:00 60 07/10/20 15:10 78 24 55 General Appearance: no apparent distress, on vent Cardiovascular: normal rate, bradycardia Respiratory/Chest: rhonchi - bilaterally Abdomen: normal bowel sounds, non tender, soft Extremities: moderate edema Intake and Output 07/10/20 07/11/20 19:00 07:00 Intake Total 527.5 ml 350 ml Output Total 665 ml 925 ml Balance -137.5 ml -575 ml IV Total 487.5 ml Tube Feeding 150 ml Other 40 ml 200 ml Output Urine Total 665 ml 925 ml # Bowel Movements 2 Laboratory Tests Test 07/10/20 17:49 07/10/20 21:50 07/11/20 00:53 07/11/20 08:49 POC Whole Blood Glucose 153 MG/DL (74-106) H 122 MG/DL (74-106) H 109 MG/DL (74-106) H 120 MG/DL (74-106) H Test 07/11/20 12:17 POC Whole Blood Glucose 111 MG/DL (74-106) H Josue Pantoja MD Jul 11, 2020 15:01
--- NOTE | 2020-07-11 15:30 | Pulmonolgy Critical Care Note ---
Critical Care - Asmt/Plan Problems: (1) Acute respiratory failure (2) Pneumothorax Assessment & Plan: resolved (3) Bacteremia (4) Pneumonia (5) Sepsis (6) HCAP (healthcare-associated pneumonia) (7) Seizure disorder (8) Down's syndrome (9) Trisomy 21, Down syndrome Respiratory: monitor respiratory rate, adjust FIO2 Cardiac: continue to monitor HR/BP Renal: F/U I&O, keep IV fluid Infectious Disease: check cultures Gastrointestinal: continue feedings/current rate Endocrine: monitor blood sugar, continue sliding scale insulin Hematologic: transfuse if hgb<8.5 Neurologic: PRN Ativan, keep patient comfortable Affect: PRN ativan Disposition: keep in ICU Time Spent (Minutes): 40 Notes Reviewed: cardio, 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 with: nurses, consultants, manager case managementwastewater manager - Objective Last 24 Hour Vital Signs Date Time Temp Pulse Resp B/P (MAP) Pulse Ox O2 Delivery O2 Flow Rate FiO2 07/11/20 15:00 58 27 113/69 (84) 99 07/11/20 14:00 58 27 99/44 (62) 100 07/11/20 13:00 64 29 87/38 (54) 99 07/11/20 12:00 50 07/11/20 12:00 59 07/11/20 12:00 Mechanical Ventilator Mechanical Ventilator 07/11/20 12:00 97.9 56 29 122/70 (87) 97 07/11/20 11:25 56 32 80 07/11/20 11:00 49 24 101/64 (76) 99 07/11/20 10:00 50 27 106/62 (77) 100 07/11/20 09:00 70 32 126/70 (88) 99 07/11/20 08:00 Mechanical Ventilator Mechanical Ventilator 07/11/20 08:00 50 07/11/20 08:00 56 07/11/20 08:00 97.7 57 30 123/61 (81) 99 07/11/20 07:20 56 27 80 07/11/20 07:00 60 29 108/54 (72) 100 07/11/20 06:00 62 30 101/66 (78) 98 07/11/20 05:00 61 28 96/74 (81) 96 07/11/20 04:00 64 07/11/20 04:00 50 07/11/20 04:00 98.0 55 28 115/75 (88) 99 07/11/20 04:00 Mechanical Ventilator Mechanical Ventilator 07/11/20 03:00 57 29 100/84 (89) 99 07/11/20 02:53 57 27 80 07/11/20 02:00 55 29 114/91 (99) 97 07/11/20 01:00 58 29 103/77 (86) 98 07/11/20 00:00 Mechanical Ventilator Mechanical Ventilator 07/11/20 00:00 45 07/11/20 00:00 98.4 45 24 122/72 (89) 100 07/10/20 23:00 47 23 121/61 (81) 97 07/10/20 22:53 49 26 80 07/10/20 22:00 62 29 127/90 (102) 99 07/10/20 21:00 60 28 121/84 (96) 97 07/10/20 20:00 50 07/10/20 20:00 67 27 113/67 (82) 98 07/10/20 20:00 Mechanical Ventilator Mechanical Ventilator 07/10/20 19:00 98.9 58 26 115/59 (77) 98 07/10/20 19:00 56 27 80 07/10/20 18:00 53 20 100/72 (81) 99 07/10/20 18:00 57 23 100/72 (81) 98 07/10/20 17:00 77 29 112/65 (81) 95 07/10/20 16:00 Mechanical Ventilator Mechanical Ventilator 07/10/20 16:00 53 24 105/65 (78) 97 07/10/20 16:00 67 07/10/20 16:00 60 Status: awake Condition: critical, grave HEENT: atraumatic Lungs: clear Heart: HR/BP stable Abdomen: soft, active bowel sounds Extremities: no C/C/E Accucheck: 111 Critical Care - Subjective ROS Limited/Unobtainable: Yes Condition: critical FI02: 50 Vent Support Breath Rate: 24 Vent Support Mode: AC Vent Tidal Volume: 500 Sputum Amount: Small PEEP: 0.0 PIP: 28 Tube Feeding Amount: 50 I&O: Intake and Output 07/10/20 07/11/20 19:00 07:00 Intake Total 527.5 ml 350 ml Output Total 665 ml 925 ml Balance -137.5 ml -575 ml IV Total 487.5 ml Tube Feeding 150 ml Other 40 ml 200 ml Output Urine Total 665 ml 925 ml # Bowel Movements 2 ET-Tube: 7.5 ET Position: 22 Labs: Laboratory Tests Test 07/10/20 17:49 07/10/20 21:50 07/11/20 00:53 07/11/20 08:49 POC Whole Blood Glucose 153 MG/DL (74-106) H 122 MG/DL (74-106) H 109 MG/DL (74-106) H 120 MG/DL (74-106) H Test 07/11/20 12:17 POC Whole Blood Glucose 111 MG/DL (74-106) H Elayne Allred MD Jul 11, 2020 15:30
--- NOTE | 2020-07-11 16:00 | NUR ---
NURSE NOTES: Pt repositioned and suctioned. no acute resp distress noted at this time. O2 sat 99%.
--- NOTE | 2020-07-11 18:00 | NUR ---
NURSE NOTES: Pt fully cleaned and linens changed. Pt had a small yellow loose BM. Pt noted have generalized edema and a small skin tear on her lower rt abdomen causing a moderate amount of serous fluid to weep from the area requiring frequent linen changes. Pt repositioned for comfort. Pt remains on BL soft wrist restraints for safety- surround skin intact and pulses present. No distress noted.
--- NOTE | 2020-07-11 19:17 | NUR ---
NURSE HAND-OFF REPORT: Latest Vital Signs: Temperature 97.6 , Pulse 52 , B/P 109 /64 , Respiratory Rate 21 , O2 SAT 99 , Mechanical Ventilator, FiO2 50% . Vital Sign Comment: EKG Rhythm: Sinus Bradycardia Rhythm change?: N MD Notified?: MD Response: Latest Osorio Fall Score: 70 Fall Risk: High Risk Safety Measures: Call light Within Reach, Bed Alarm Zone 1, Side Rails Side Rails x3, Bed position Low and Locked. Fall Precautions: Door Sign Report given to TAI Galvan.
--- NOTE | 2020-07-11 19:40 | NUR ---
NURSE NOTES: LE: PATIENT AWOKE, OPEN EYES, ABLE TO EYE CONTACT BUT DID NOT FOLLOW COMMANDS, ON ETT TO VENT, AC 24/TV 500/FIO2 80%/NO PEEP, O2 SATURATION 96% NOTED, HR 50'S/MIN, SB NOTED, CHEST TUBE TO LEFT ANTERIOR UPPER CHEST WITH LOWER CONTINUE SUCTION STATUS, SEROSANGUINEOUS DISCHARGE OUTED, SECURED LINE, G TUBE INTACT AND PATENT, ONGOING VITAL AF 1.2 AT 50ML/HR, NO RESIDUE NOTED, KEPT HOB OVER 30 DEGREES, ASPIRATION AND SZ PRECAUTION, ABDOMEN SOFT, NON TENDER,F/C INTACT AND PATENT, YELLOW COLOR URINE OUTED, PICC LINE TO LEFT UPPER ARM, INTACT AND PATENT, ON P200 BED, MADE LOWER BED POSITION, ON BED ALARM AND LOCKED, PLACE CALL LIGHT WITHIN REACH, WILL CONTINUE TO MONITOR.
[2020-07-11] MEDS: Dyna-Hex 2% Top Sol 2oz TOPIC SCH (19:51)
--- NOTE | 2020-07-11 21:55 | NUR ---
NURSE NOTES: LE; PATIENT ASLEEP STATUS, REPOSITIONED, WILL CONTINUE TO MONITOR.
--- NOTE | 2020-07-11 23:46 | NUR ---
NURSE NOTES: PATIENT CALM, TOLERATED G TUBE FEEDING STATUS, WILL CONTINUE TO MONITOR.
[2020-07-12] VITALS (24 sets, daily range): BP systolic 93–147; BP diastolic 56–110
--- NOTE | 2020-07-12 01:45 | NUR ---
NURSE NOTES: LEFT SIDE CHEST TUBE INTACT AND PATENT, KEPT LOWER CONTINUE SUCTION, SECURED LINE, WILL CONTINUE TO MONITOR.
--- NOTE | 2020-07-12 04:10 | NUR ---
NURSE NOTES: MORNING CARE AND ORAL CARE WAS DONE, NO DISTRESS NOTED AT THIS TIME, WILL CONTINUE PLAN OF CARE.
[2020-07-12] MEDS: NovoLOG Insulin Flexpen SUBQ SCH ×3 (05:31→17:51)
[2020-07-12 06:05] LABS: BASOPHILS % (AUTO) 0.2 % (0.0-2.0); EOSINOPHILS % (AUTO) 0.6 % (0.0-3.0); HEMATOCRIT 27.1 % (37.0-47.0); LYMPHOCYTES % (AUTO) 16.4 % (20.0-45.0); MEAN CORPUSCULAR VOLUME 96 FL (80-99); MONOCYTES % (AUTO) 4.4 % (1.0-10.0); NEUTROPHILS % (AUTO) 78.4 % (45.0-75.0); PLATELET COUNT 125 K/UL (150-450); RED BLOOD COUNT 2.83 M/UL (4.20-5.40); RED CELL DISTRIBUTION WIDTH 17.2 % (11.6-14.8); WHITE BLOOD COUNT 7.5 K/UL (4.8-10.8)
--- NOTE | 2020-07-12 06:20 | NUR ---
NURSE NOTES: NO ACUTE DISTRESS NOTED AT THIS SHIFT.
[2020-07-12 06:27] LABS: ALANINE AMINOTRANSFERASE 24 U/L (12-78); ALBUMIN 1.3 G/DL (3.4-5.0); ALBUMIN/GLOBULIN RATIO 0.4 (1.0-2.7); ALKALINE PHOSPHATASE 56 U/L (46-116); ANION GAP 2 mmol/L (5-15); ASPARTATE AMINO TRANSFERASE 17 U/L (15-37); BILIRUBIN,TOTAL 0.5 MG/DL (0.2-1.0); BLOOD UREA NITROGEN 18 mg/dL (7-18); CALCIUM 7.3 MG/DL (8.5-10.1); CARBON DIOXIDE 30 MMOL/L (21-32); CHLORIDE 116 MMOL/L (98-107); CREATININE 0.7 MG/DL (0.55-1.30); PHOSPHORUS 2.6 MG/DL (2.5-4.9); POTASSIUM 3.6 MMOL/L (3.5-5.1); SODIUM 148 MMOL/L (136-145)
--- NOTE | 2020-07-12 07:20 | NUR ---
NURSE HAND-OFF REPORT: Latest Vital Signs: Temperature 98.2 , Pulse 51 , B/P 119 /65 , Respiratory Rate 25 , O2 SAT 97 , Mechanical Ventilator, O2 Flow Rate 15.0 . Vital Sign Comment: VSS EKG Rhythm: Sinus Bradycardia Rhythm change?: N Notified?: Marce Oliveros MD Response: No New Orders Received Latest Osorio Fall Score: 70 Fall Risk: High Risk Safety Measures: Call light Within Reach, Bed Alarm Zone 1, Side Rails Side Rails x3, Bed position Low and Locked. Fall Precautions: Yellow Socks Door Sign Patient Fall Education Report given to TAI GOODE.
--- NOTE | 2020-07-12 07:21 | NUR ---
NURSE NOTES: Received patient from Cole Benitez RN.. Orally intubated, ET size of 7.5, 24 cm in the lip, mechanical ventilator dependent. Ventilator settings of AC 24, Tidal Volume 500, FiO2 of 80%, no PEEP. GT feeding on hold for synthroid. Patient asleep. Remains Sinus Blair in the monitor, heart rate of 5. Left upper arm PICC noted. Gregorio cath inplace with yellow clear urine output noted in drainage bag by gravity. Left chest thoracic vent in place, connected to low continuous suction, with serous drainage noted in the pleurovac. Contact isolation observed. Will continue plan of care.
--- NOTE | 2020-07-12 08:50 | Diagnostic Imaging Report ---
EXAM: XR Chest, 1 View CLINICAL HISTORY: DYSPNEA TECHNIQUE: Frontal view of the chest. COMPARISON: Chest radiograph July 11, 2020 FINDINGS/IMPRESSION: Endotracheal tube in satisfactory position. Left upper extremity PICC line terminates in the right atrium. Stable appearing catheter projects over the left upper chest, correlate clinically. Extensive patchy bilateral airspace opacities, consistent with multifocal infiltrate/ARDS. This is unchanged compared to July 11, 2020. Small bilateral pleural effusions, left greater than right. No pneumothorax. The heart is enlarged. Overall, no significant interval change when compared to the chest radiograph one day prior.
--- NOTE | 2020-07-12 09:00 | NUR ---
NURSE NOTES: Left chest thoracic vent remains inplace. On low continuous suction. with serous drainage in pleurovac.
[2020-07-12] MEDS: Hydrocortisone 100mg Inj IV SCH ×2 (09:15→20:50)
[2020-07-12] MEDS: Pantoprazole Inj IVP SCH ×2 (09:16→20:50)
[2020-07-12] MEDS: Levemir Flexpen SUBQ SCH ×2 (09:17→20:58)
--- NOTE | 2020-07-12 09:20 | General Progress Note ---
Subjective ROS Limited/Unobtainable: No Allergies: Coded Allergies: No Known Allergies (Unverified , 10/16/18) Objective Last 24 Hour Vital Signs Date Time Temp Pulse Resp B/P (MAP) Pulse Ox O2 Delivery O2 Flow Rate FiO2 07/12/20 09:00 54 25 114/63 (80) 97 07/12/20 08:55 70 07/12/20 08:55 70 07/12/20 08:00 Mechanical Ventilator Mechanical Ventilator 07/12/20 08:00 98.5 48 32 97/57 (70) 97 07/12/20 08:00 80 07/12/20 07:56 48 07/12/20 07:15 55 24 80 07/12/20 07:00 51 25 119/65 (83) 97 07/12/20 06:00 57 26 119/66 (83) 97 07/12/20 05:00 60 23 101/82 (88) 95 07/12/20 04:00 51 07/12/20 04:00 Mechanical Ventilator Mechanical Ventilator 07/12/20 04:00 98.2 51 25 110/62 (78) 98 07/12/20 04:00 80 07/12/20 03:50 52 24 80 07/12/20 03:00 59 23 103/90 (94) 98 07/12/20 02:00 57 25 132/69 (90) 99 07/12/20 01:00 59 27 125/76 (92) 98 07/12/20 00:00 98.4 56 30 114/82 (93) 98 07/12/20 00:00 56 07/12/20 00:00 80 07/12/20 00:00 Mechanical Ventilator Mechanical Ventilator 07/11/20 23:02 49 25 80 07/11/20 23:00 51 24 96/61 (73) 98 07/11/20 22:00 47 23 113/62 (79) 98 07/11/20 21:00 51 24 98/56 (70) 98 07/11/20 20:00 Mechanical Ventilator Mechanical Ventilator 07/11/20 20:00 97.8 56 25 117/71 (86) 98 07/11/20 20:00 80 07/11/20 19:46 47 24 80 07/11/20 19:27 46 07/11/20 19:00 52 21 109/64 (79) 99 07/11/20 18:00 66 24 99/56 (70) 100 07/11/20 17:00 97.6 53 26 117/62 (80) 100 07/11/20 16:00 56 07/11/20 16:00 50 07/11/20 16:00 Mechanical Ventilator Mechanical Ventilator 07/11/20 16:00 57 32 106/53 (70) 100 07/11/20 15:00 53 28 80 07/11/20 15:00 58 27 113/69 (84) 99 07/11/20 14:00 58 27 99/44 (62) 100 07/11/20 13:00 64 29 87/38 (54) 99 07/11/20 12:00 50 07/11/20 12:00 59 07/11/20 12:00 Mechanical Ventilator Mechanical Ventilator 07/11/20 12:00 97.9 56 29 122/70 (87) 97 07/11/20 11:25 56 32 80 07/11/20 11:00 49 24 101/64 (76) 99 07/11/20 10:00 50 27 106/62 (77) 100 Intake and Output 07/11/20 07/12/20 19:00 07:00 Intake Total 720 ml 680 ml Output Total 920 ml 820 ml Balance -200 ml -140 ml Tube Feeding 600 ml 500 ml Other 120 ml 180 ml Output Urine Total 845 ml 600 ml Chest Tube Drainage Total 75 ml 220 ml # Bowel Movements 1 2 Laboratory Tests 07/11/20 12:17: POC Whole Blood Glucose 111H 07/12/20 04:00: White Blood Count 7.5, Red Blood Count 2.83L, Hemoglobin 9.0L, Hematocrit 27.1L, Mean Corpuscular Volume 96, Mean Corpuscular Hemoglobin 31.8H, Mean Corpuscular Hemoglobin Concent 33.2, Red Cell Distribution Width 17.2H, Platelet Count 125L, Mean Platelet Volume 7.8, Neutrophils (%) (Auto) 78.4H, Lymphocytes (%) (Auto) 16.4L, Monocytes (%) (Auto) 4.4, Eosinophils (%) (Auto) 0.6, Basophils (%) (Auto) 0.2, Sodium Level 148H, Potassium Level 3.6, Chloride Level 116H, Carbon Dioxide Level 30, Anion Gap 2L, Blood Urea Nitrogen 18, Creatinine 0.7, Estimat Glomerular Filtration Rate > 60, Glucose Level 166H, Calcium Level 7.3L, Phosphorus Level 2.6, Magnesium Level 2.1, Total Bilirubin 0.5, Aspartate Amino Transf (AST/SGOT) 17, Alanine Aminotransferase (ALT/SGPT) 24, Alkaline Phosphatase 56, C-Reactive Protein, Quantitative 1.6H, Pro-B-Type Natriuretic Peptide 2349H, Total Protein 4.5L, Albumin 1.3L, Globulin 3.2, Albumin/Globulin Ratio 0.4L 07/12/20 05:11: POC Whole Blood Glucose 190H 07/12/20 08:13: Arterial Blood pH 7.471H, Arterial Blood Partial Pressure CO2 39.9, Arterial Blood Partial Pressure O2 264.7H, Arterial Blood HCO3 28.5H, Arterial Blood Oxygen Saturation 98.9, Arterial Blood Base Excess 4.5H, Jonathan Test Positive Height (Feet): 5 Height (Inches): 3.00 Weight (Pounds): 172 General Appearance: no apparent distress Neck: non-tender Cardiovascular: normal rate Respiratory/Chest: decreased breath sounds Abdomen: hypoactive bowel sounds Extremities: non-tender Assessment/Plan Status: stable, not improved, unchanged Assessment/Plan: 1. History of Down syndrome. 2. Dysphagia with G-tube. 3. Seizure disorder. 4. Hypothyroidism. 5. LEANN. 6. Pneumonia. 7. Sepsis. fu H&H prn blood transfusion to keep HGB above 7 ppi GTF hold GI procedures for now pending possible Trach Nehemiah Perez MD Jul 12, 2020 09:20
--- NOTE | 2020-07-12 10:40 | NUR ---
NURSE NOTES: Dr. Pantoja at bedside. Latest blood pressure of 93/58. With orders obtained to bolus 1/2 NS 250ml x 1, and to start patient on continuous IVF of 1/2 NS at 50ml/hour after the bolus.
--- NOTE | 2020-07-12 10:44 | Cardiology Progress Note ---
Assessment/Plan Assessment/Plan sepsis respiratory failure ards renal insuf bacteremia abn cardiac enzyme due to demand sinus rafael stable thrombocytopenia resolved hypernatremia pneumothorax now s/p chest tube on the left now vent support abx tsh seems fine remains off pressor still at this time hr inthe 60's s no sig pauses on tele tele personally reviewed she pulled out the right sided ct has left thoravent trach planned form 07/13 bp low has been mobilizing fluid kimberley admisnter some ivf Subjective ROS Limited/Unobtainable: Yes Subjective on a vent not communicative not AWAKE Objective Last 24 Hour Vital Signs Date Time Temp Pulse Resp B/P (MAP) Pulse Ox O2 Delivery O2 Flow Rate FiO2 07/12/20 10:00 48 24 93/58 (70) 98 07/12/20 09:00 54 25 114/63 (80) 97 07/12/20 08:55 70 07/12/20 08:55 70 07/12/20 08:00 Mechanical Ventilator Mechanical Ventilator 07/12/20 08:00 98.5 48 32 97/57 (70) 97 07/12/20 08:00 80 07/12/20 07:56 48 07/12/20 07:15 55 24 80 07/12/20 07:00 51 25 119/65 (83) 97 07/12/20 06:00 57 26 119/66 (83) 97 07/12/20 05:00 60 23 101/82 (88) 95 07/12/20 04:00 51 07/12/20 04:00 Mechanical Ventilator Mechanical Ventilator 07/12/20 04:00 98.2 51 25 110/62 (78) 98 07/12/20 04:00 80 07/12/20 03:50 52 24 80 07/12/20 03:00 59 23 103/90 (94) 98 07/12/20 02:00 57 25 132/69 (90) 99 07/12/20 01:00 59 27 125/76 (92) 98 07/12/20 00:00 98.4 56 30 114/82 (93) 98 07/12/20 00:00 56 07/12/20 00:00 80 07/12/20 00:00 Mechanical Ventilator Mechanical Ventilator 07/11/20 23:02 49 25 80 07/11/20 23:00 51 24 96/61 (73) 98 07/11/20 22:00 47 23 113/62 (79) 98 07/11/20 21:00 51 24 98/56 (70) 98 07/11/20 20:00 Mechanical Ventilator Mechanical Ventilator 07/11/20 20:00 97.8 56 25 117/71 (86) 98 07/11/20 20:00 80 07/11/20 19:46 47 24 80 07/11/20 19:27 46 07/11/20 19:00 52 21 109/64 (79) 99 07/11/20 18:00 66 24 99/56 (70) 100 07/11/20 17:00 97.6 53 26 117/62 (80) 100 07/11/20 16:00 56 07/11/20 16:00 50 07/11/20 16:00 Mechanical Ventilator Mechanical Ventilator 07/11/20 16:00 57 32 106/53 (70) 100 07/11/20 15:00 53 28 80 07/11/20 15:00 58 27 113/69 (84) 99 07/11/20 14:00 58 27 99/44 (62) 100 07/11/20 13:00 64 29 87/38 (54) 99 07/11/20 12:00 50 07/11/20 12:00 59 07/11/20 12:00 Mechanical Ventilator Mechanical Ventilator 07/11/20 12:00 97.9 56 29 122/70 (87) 97 07/11/20 11:25 56 32 80 07/11/20 11:00 49 24 101/64 (76) 99 General Appearance: no apparent distress, on vent Neck: supple Cardiovascular: normal rate, bradycardia Respiratory/Chest: rhonchi - bilaterally Abdomen: normal bowel sounds, non tender, soft Extremities: no swelling Intake and Output 07/11/20 07/12/20 18:59 06:59 Intake Total 720 ml 730 ml Output Total 840 ml 925 ml Balance -120 ml -195 ml Tube Feeding 600 ml 550 ml Other 120 ml 180 ml Output Urine Total 840 ml 630 ml Chest Tube Drainage Total 295 ml # Bowel Movements 1 2 Laboratory Tests Test 07/11/20 12:17 07/12/20 04:00 07/12/20 05:11 07/12/20 08:13 POC Whole Blood Glucose 111 MG/DL (74-106) H 190 MG/DL (74-106) H White Blood Count 7.5 K/UL (4.8-10.8) Red Blood Count 2.83 M/UL (4.20-5.40) L Hemoglobin 9.0 G/DL (12.0-16.0) L Hematocrit 27.1 % (37.0-47.0) L Mean Corpuscular Volume 96 FL (80-99) Mean Corpuscular Hemoglobin 31.8 PG (27.0-31.0) H Mean Corpuscular Hemoglobin Concent 33.2 G/DL (32.0-36.0) Red Cell Distribution Width 17.2 % (11.6-14.8) H Platelet Count 125 K/UL (150-450) L Mean Platelet Volume 7.8 FL (6.5-10.1) Neutrophils (%) (Auto) 78.4 % (45.0-75.0) H Lymphocytes (%) (Auto) 16.4 % (20.0-45.0) L Monocytes (%) (Auto) 4.4 % (1.0-10.0) Eosinophils (%) (Auto) 0.6 % (0.0-3.0) Basophils (%) (Auto) 0.2 % (0.0-2.0) Sodium Level 148 MMOL/L (136-145) H Potassium Level 3.6 MMOL/L (3.5-5.1) Chloride Level 116 MMOL/L (98-107) H Carbon Dioxide Level 30 MMOL/L (21-32) Anion Gap 2 mmol/L (5-15) L Blood Urea Nitrogen 18 mg/dL (7-18) Creatinine 0.7 MG/DL (0.55-1.30) Estimat Glomerular Filtration Rate > 60 mL/min (>60) Glucose Level 166 MG/DL (74-106) H Calcium Level 7.3 MG/DL (8.5-10.1) L Phosphorus Level 2.6 MG/DL (2.5-4.9) Magnesium Level 2.1 MG/DL (1.8-2.4) Total Bilirubin 0.5 MG/DL (0.2-1.0) Aspartate Amino Transf (AST/SGOT) 17 U/L (15-37) Alanine Aminotransferase (ALT/SGPT) 24 U/L (12-78) Alkaline Phosphatase 56 U/L (46-116) C-Reactive Protein, Quantitative 1.6 mg/dL (0.00-0.90) H Pro-B-Type Natriuretic Peptide 2349 pg/mL (0-125) H Total Protein 4.5 G/DL (6.4-8.2) L Albumin 1.3 G/DL (3.4-5.0) L Globulin 3.2 g/dL Albumin/Globulin Ratio 0.4 (1.0-2.7) L Arterial Blood pH 7.471 (7.350-7.450) Arterial Blood Partial Pressure CO2 39.9 mmHg (35.0-45.0) Arterial Blood Partial Pressure O2 264.7 mmHg (75.0-100.0) H Arterial Blood HCO3 28.5 mmol/L (22.0-26.0) H Arterial Blood Oxygen Saturation 98.9 % (95-100) Arterial Blood Base Excess 4.5 (-2-2) H Jonathan Test Positive Josue Pantoja MD Jul 12, 2020 10:44
[2020-07-12] MEDS ORDERED: 1/2 NS 1000ml 250 ML IV SCH (10:45)
--- NOTE | 2020-07-12 11:24 | Nephrology Progress Note ---
Assessment/Plan Problem List: (1) LEANN (acute kidney injury) (2) Respiratory failure requiring intubation (3) Down's syndrome (4) Seizure disorder (5) Hypothyroidism Assessment Acute renal failure, likely due to hypotension Acute respiratory distress, hypoxia Seizure disorder Hypothyroidism Down syndrome Full code Fluid challenge with IV fluids and albumin Midodrine for BP above 100 systolic Check TSH level Check Correct level Monitor renal parameters Urine studies Per orders Plan July 12: Remains intubated on ventilator. Due for tracheostomy tomorrow. Left chest tube present. Patient is full code. Labs reviewed. Continue as is. July 11: Remains intubated on ventilator. Due for tracheostomy July 13. Has left-sided chest tube. Stable from renal standpoint to view. Continue per consultants. July 10: Remains intubated on ventilator. Electrolyte abnormalities addressed. Supplements ordered. July 09: Intubated on ventilator. Labs reviewed. Potassium supplement given. Remains bradycardic. Continue per consultants. July 08: Labs reviewed. Electrolyte abnormalities addressed. Heart rate remains bradycardic. Continue per cardiology. Continue to monitor renal parameters and electrolytes. July 07: Labs reviewed. Electrolyte abnormalities addressed and replaced. Medication list reviewed. Heart rate remains mid 50s. Continue as is. July 06: On ventilator. Full code. Heart rate low. Will discontinue Midodrin. Continue to rest. Electrolytes within normal limit. Discussed with RN. July 05: Remains intubated. Full code. No plan for tracheostomy yet. Labs reviewed. All acceptable. Continue same management July 04: Labs reviewed. Discussed with RN. Potassium and phosphorus and magnesium replacement ordered. Hemoglobin 9.5. Patient remains full code. Continue per consultants. July 03: Lab reviewed. Renal parameters stable. Full code. Intubated. Electrolyte abnormalities addressed and replacement done. July 02: Lab reviewed. Renal parameters stable. Full code. Intubated. Has right side chest tube. Continue per consultants. July 01: Lab reviewed. Renal parameters stable. Full code. Has right chest tube. Planning process for tracheostomy. Defer to chest and general surgeon. June 30: Labs reviewed. Renal parameters stable. Remains full code. Remains on ventilator. Due for tracheostomy tomorrow. Continue per consultants. Patient has a right chest tube in place at this time. June 29: Labs reviewed. Electrolyte imbalances addressed and supplemented. Remains full code and on ventilator. Continue to monitor renal parameters. Continue per consultants. June 28: Labs reviewed. Serum potassium again low today. Potassium supplement IV and through GT given. Patient remains full code and is on ventilator. Continue per consultants. Continue to monitor electrolytes and renal parameters. June 27: Labs reviewed. Abnormal electrolyte addressed. Remains full code. Remains vented. June 26: Day 27 of hospitalization. Full code. Labs reviewed. Hemoglobin down to 7.5. Electrolyte abnormalities addressed and corrections ordered. Continue to monitor renal parameters. Continue per consultants. Start on Levemir for blood sugar management. Questioning continuation of hydrocortisone? June 25: Labs reviewed. Potassium, phosphorus, hemoglobin, are all low. Potassium and phosphorus IV replacement given. Continue to monitor electrolytes and CBC. Patient remains full code. June 24: Lab reviewed. Low phosphorus low magnesium and low potassium was addressed. Hemoglobin drifting lower. Continue per consultants. Patient remains full code. June 23: Labs reviewed. Patient continues to be on ventilator. D5W for high sodium and also potassium chloride intravenously as supplement given. Hemoglobin 8.4. Continue to monitor electrolytes and renal parameters. June 22: Labs reviewed. Low potassium and high sodium noted. Hemoglobin 8.1 stable. Aim to correct abnormal electrolyte. Continue rest. Will give 2 boluses of D5W 500 cc. June 21: Lab reviewed. Abnormal electrolytes noted and addressed. June 20: Labs reviewed. Potassium supplement given. Patient remains full code. Continue per consultants. June 19: Lab reviewed. Electrolyte abnormalities addressed. Continue per pulmonary and ID. June 18: Lab reviewed. Status unchanged. Serum sodium 151 unchanged. Stable from renal standpoint of view. June 17: Labs reviewed. Status quo. D5W 500 cc IV ordered. Continue to monitor renal parameters. June 16: Status quo. Labs reviewed. Overall condition unchanged. Patient was transfused and hemoglobin higher. Continue current management. Patient r emains full code. June 15: Status quo. Overall condition poor. Very low albumin. Edematous. Hypotensive. Hemoglobin lower. Anemia work-up ordered. I favor transfusion 2 units of packed RBCs. Patient remains full code. I favor supportive care only. Will discuss. June 14: Electrolyte abnormalities addressed. Serum creatinine lower. Continue per current management. June 13: Status unchanged. Lab reviewed. Serum potassium 2.7. IV potassium chloride ordered. Serum creatinine low at 1.6 stable. Blood pressure 90s systolic Sofie 4: Status quo. Labs reviewed. Renal parameters stable. Serum creatinine down to 1.6. Medication list reviewed. Continues to be on midodrine. Continue per consultants. June 11: Status quo. Labs reviewed. Electrolytes adjusted. Serum creatinine down to 1.8. Continue per consultants. June 10: Status quo. Labs reviewed. Phosphorus supplement IV given. Serum creatinine 2. Continue per consultants. June 09: Requires less pressors. Albumin bolus given. 1 dose of Lasix IV ordered as the patient severely edematous. Patient serum albumin is very low. Continue per consultants. June 08: Continues to be intubated. Labs reviewed. Serum creatinine 1.9 unchanged. Blood pressure more stable. Off 1 of the pressors. Continue to monitor renal parameters. Continue per consultants. Patient now on hydrocortisone 100 mg every 8 hours. Will decrease IV fluid. Normal saline down to 50 cc an hour. June 07: Intubated. Labs reviewed. Creatinine 1.9 unchanged. Continue same treatment plan. Per consultants. Overall poor prognosis since the patient remains on pressors and her pulmonary status is worsening. June 06: Remains intubated. Labs reviewed. Creatinine 1.9. Blood pressure systolic 90s. Continue per consultants. June 05: Remains intubated. Labs reviewed. Serum creatinine lower to 2. Vancomycin level lower. Remains hypotensive on pressors. Will increase midodrine to 10 mg every 8 hours. Continue per consultants. Continue to mon itor renal parameters. June 04: Patient now in ICU. Intubated. On pressors. Labs reviewed. Will increase midodrine. Aim to keep blood pressure over 100 systolic. Will give albumin bolus. Will check vancomycin level which was elevated when checked previously on June 01. Will monitor renal parameters. Continue per consultants. Subjective ROS Limited/Unobtainable: Yes Objective Objective Last 24 Hour Vital Signs Date Time Temp Pulse Resp B/P (MAP) Pulse Ox O2 Delivery O2 Flow Rate FiO2 07/12/20 11:00 47 24 107/57 (74) 96 07/12/20 10:00 48 24 93/58 (70) 98 07/12/20 09:00 54 25 114/63 (80) 97 07/12/20 08:55 70 07/12/20 08:55 70 07/12/20 08:00 Mechanical Ventilator Mechanical Ventilator 07/12/20 08:00 98.5 48 32 97/57 (70) 97 07/12/20 08:00 80 07/12/20 07:56 48 07/12/20 07:15 55 24 80 07/12/20 07:00 51 25 119/65 (83) 97 07/12/20 06:00 57 26 119/66 (83) 97 07/12/20 05:00 60 23 101/82 (88) 95 07/12/20 04:00 51 07/12/20 04:00 Mechanical Ventilator Mechanical Ventilator 07/12/20 04:00 98.2 51 25 110/62 (78) 98 07/12/20 04:00 80 07/12/20 03:50 52 24 80 07/12/20 03:00 59 23 103/90 (94) 98 07/12/20 02:00 57 25 132/69 (90) 99 07/12/20 01:00 59 27 125/76 (92) 98 07/12/20 00:00 98.4 56 30 114/82 (93) 98 07/12/20 00:00 56 07/12/20 00:00 80 07/12/20 00:00 Mechanical Ventilator Mechanical Ventilator 07/11/20 23:02 49 25 80 07/11/20 23:00 51 24 96/61 (73) 98 07/11/20 22:00 47 23 113/62 (79) 98 07/11/20 21:00 51 24 98/56 (70) 98 07/11/20 20:00 Mechanical Ventilator Mechanical Ventilator 07/11/20 20:00 97.8 56 25 117/71 (86) 98 07/11/20 20:00 80 07/11/20 19:46 47 24 80 07/11/20 19:27 46 07/11/20 19:00 52 21 109/64 (79) 99 07/11/20 18:00 66 24 99/56 (70) 100 07/11/20 17:00 97.6 53 26 117/62 (80) 100 07/11/20 16:00 56 07/11/20 16:00 50 07/11/20 16:00 Mechanical Ventilator Mechanical Ventilator 07/11/20 16:00 57 32 106/53 (70) 100 07/11/20 15:00 53 28 80 07/11/20 15:00 58 27 113/69 (84) 99 07/11/20 14:00 58 27 99/44 (62) 100 07/11/20 13:00 64 29 87/38 (54) 99 07/11/20 12:00 50 07/11/20 12:00 59 07/11/20 12:00 Mechanical Ventilator Mechanical Ventilator 07/11/20 12:00 97.9 56 29 122/70 (87) 97 07/11/20 11:25 56 32 80 Intake and Output 07/11/20 07/12/20 19:00 07:00 Intake Total 720 ml 680 ml Output Total 920 ml 820 ml Balance -200 ml -140 ml Tube Feeding 600 ml 500 ml Other 120 ml 180 ml Output Urine Total 845 ml 600 ml Chest Tube Drainage Total 75 ml 220 ml # Bowel Movements 1 2 Laboratory Tests 07/11/20 12:17: POC Whole Blood Glucose 111H 07/12/20 04:00: White Blood Count 7.5, Red Blood Count 2.83L, Hemoglobin 9.0L, Hematocrit 27.1L, Mean Corpuscular Volume 96, Mean Corpuscular Hemoglobin 31.8H, Mean Corpuscular Hemoglobin Concent 33.2, Red Cell Distribution Width 17.2H, Platelet Count 125L, Mean Platelet Volume 7.8, Neutrophils (%) (Auto) 78.4H, Lymphocytes (%) (Auto) 16.4L, Monocytes (%) (Auto) 4.4, Eosinophils (%) (Auto) 0.6, Basophils (%) (Auto) 0.2, Sodium Level 148H, Potassium Level 3.6, Chloride Level 116H, Carbon Dioxide Level 30, Anion Gap 2L, Blood Urea Nitrogen 18, Creatinine 0.7, Estimat Glomerular Filtration Rate > 60, Glucose Level 166H, Calcium Level 7.3L, Phosphorus Level 2.6, Magnesium Level 2.1, Total Bilirubin 0.5, Aspartate Amino Transf (AST/SGOT) 17, Alanine Aminotransferase (ALT/SGPT) 24, Alkaline Phosphatase 56, C-Reactive Protein, Quantitative 1.6H, Pro-B-Type Natriuretic Peptide 2349H, Total Protein 4.5L, Albumin 1.3L, Globulin 3.2, Albumin/Globulin Ratio 0.4L 07/12/20 05:11: POC Whole Blood Glucose 190H 10/4/20 08:13: Arterial Blood pH 7.471H, Arterial Blood Partial Pressure CO2 39.9, Arterial Blood Partial Pressure O2 264.7H, Arterial Blood HCO3 28.5H, Arterial Blood Oxygen Saturation 98.9, Arterial Blood Base Excess 4.5H, Jonathan Test Positive Height (Feet): 5 Height (Inches): 3.00 Weight (Pounds): 172 General Appearance: no apparent distress EENT: other - Intubated on ventilator Cardiovascular: bradycardia Respiratory/Chest: decreased breath sounds Abdomen: distended Keron Pitt MD Jul 12, 2020 11:24
--- NOTE | 2020-07-12 12:00 | NUR ---
NURSE NOTES: Patient unable to follow commands. Turned and repositioned by 2 staff. Patient appears combative, and trying to reach ET tube while restraints are off during repositioning.
--- NOTE | 2020-07-12 12:50 | NUR ---
NURSE NOTES: Dr. Allred at bedside.
--- NOTE | 2020-07-12 13:00 | NUR ---
NURSE NOTES: No signs and symptoms of hypoglycemia.
--- NOTE | 2020-07-12 13:16 | Pulmonolgy Critical Care Note ---
Critical Care - Asmt/Plan Problems: (1) Acute respiratory failure (2) Pneumothorax Assessment & Plan: R chest tube is out (3) Bacteremia (4) Pneumonia (5) Sepsis (6) HCAP (healthcare-associated pneumonia) (7) Seizure disorder (8) Down's syndrome (9) Trisomy 21, Down syndrome Respiratory: adjust tidal volume, monitor respiratory rate, adjust FIO2 Cardiac: continue to monitor HR/BP Renal: F/U I&O, keep IV fluid, check electrolytes Infectious Disease: check cultures, continue antibiotics Gastrointestinal: continue feedings/current rate Endocrine: monitor blood sugar, continue sliding scale insulin Hematologic: monitor H/H, transfuse if hgb<8.5 Neurologic: PRN Ativan, PRN Morphine, keep patient comfortable Prophylaxis: Protonix, Heparin Disposition: keep in ICU Notes Reviewed: cardio, 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 with: nurses, consultants, telehealth case managerleasing manager - Objective Last 24 Hour Vital Signs Date Time Temp Pulse Resp B/P (MAP) Pulse Ox O2 Delivery O2 Flow Rate FiO2 07/12/20 12:00 Mechanical Ventilator Mechanical Ventilator 07/12/20 12:00 98.9 47 24 104/58 (73) 97 07/12/20 11:43 46 07/12/20 11:20 52 25 70 07/12/20 11:00 47 24 107/57 (74) 96 07/12/20 10:00 48 24 93/58 (70) 98 07/12/20 09:00 54 25 114/63 (80) 97 07/12/20 08:55 70 07/12/20 08:55 70 07/12/20 08:00 Mechanical Ventilator Mechanical Ventilator 07/12/20 08:00 98.5 48 32 97/57 (70) 97 07/12/20 08:00 80 07/12/20 07:56 48 07/12/20 07:15 55 24 80 07/12/20 07:00 51 25 119/65 (83) 97 07/12/20 06:00 57 26 119/66 (83) 97 07/12/20 05:00 60 23 101/82 (88) 95 07/12/20 04:00 51 07/12/20 04:00 Mechanical Ventilator Mechanical Ventilator 07/12/20 04:00 98.2 51 25 110/62 (78) 98 07/12/20 04:00 80 07/12/20 03:50 52 24 80 07/12/20 03:00 59 23 103/90 (94) 98 07/12/20 02:00 57 25 132/69 (90) 99 07/12/20 01:00 59 27 125/76 (92) 98 07/12/20 00:00 98.4 56 30 114/82 (93) 98 07/12/20 00:00 56 07/12/20 00:00 80 07/12/20 00:00 Mechanical Ventilator Mechanical Ventilator 07/11/20 23:02 49 25 80 07/11/20 23:00 51 24 96/61 (73) 98 07/11/20 22:00 47 23 113/62 (79) 98 07/11/20 21:00 51 24 98/56 (70) 98 07/11/20 20:00 Mechanical Ventilator Mechanical Ventilator 07/11/20 20:00 97.8 56 25 117/71 (86) 98 07/11/20 20:00 80 07/11/20 19:46 47 24 80 07/11/20 19:27 46 07/11/20 19:00 52 21 109/64 (79) 99 07/11/20 18:00 66 24 99/56 (70) 100 07/11/20 17:00 97.6 53 26 117/62 (80) 100 07/11/20 16:00 56 07/11/20 16:00 50 07/11/20 16:00 Mechanical Ventilator Mechanical Ventilator 07/11/20 16:00 57 32 106/53 (70) 100 07/11/20 15:00 53 28 80 07/11/20 15:00 58 27 113/69 (84) 99 07/11/20 14:00 58 27 99/44 (62) 100 Status: awake Condition: critical, improving HEENT: normocephalic Neck: full ROM Lungs: rales, rhonchi Heart: HR/BP stable Abdomen: soft, active bowel sounds Extremities: edema Decubiti: location Accucheck: 109 Critical Care - Subjective ROS Limited/Unobtainable: Yes Condition: critical EKG Rhythm: Sinus Rhythm FI02: 70 Vent Support Breath Rate: 24 Vent Support Mode: AC Vent Tidal Volume: 500 Sputum Amount: Small PEEP: 0.0 PIP: 48 Tube Feeding Amount: 50 I&O: Intake and Output 07/11/20 07/12/20 19:00 07:00 Intake Total 720 ml 680 ml Output Total 920 ml 820 ml Balance -200 ml -140 ml Tube Feeding 600 ml 500 ml Other 120 ml 180 ml Output Urine Total 845 ml 600 ml Chest Tube Drainage Total 75 ml 220 ml # Bowel Movements 1 2 ET-Tube: 7.5 ET Position: 23 Labs: Laboratory Tests Test 07/12/20 04:00 07/12/20 05:11 07/12/20 08:13 White Blood Count 7.5 K/UL (4.8-10.8) Red Blood Count 2.83 M/UL (4.20-5.40) L Hemoglobin 9.0 G/DL (12.0-16.0) L Hematocrit 27.1 % (37.0-47.0) L Mean Corpuscular Volume 96 FL (80-99) Mean Corpuscular Hemoglobin 31.8 PG (27.0-31.0) H Mean Corpuscular Hemoglobin Concent 33.2 G/DL (32.0-36.0) Red Cell Distribution Width 17.2 % (11.6-14.8) H Platelet Count 125 K/UL (150-450) L Mean Platelet Volume 7.8 FL (6.5-10.1) Neutrophils (%) (Auto) 78.4 % (45.0-75.0) H Lymphocytes (%) (Auto) 16.4 % (20.0-45.0) L Monocytes (%) (Auto) 4.4 % (1.0-10.0) Eosinophils (%) (Auto) 0.6 % (0.0-3.0) Basophils (%) (Auto) 0.2 % (0.0-2.0) Sodium Level 148 MMOL/L (136-145) H Potassium Level 3.6 MMOL/L (3.5-5.1) Chloride Level 116 MMOL/L (98-107) H Carbon Dioxide Level 30 MMOL/L (21-32) Anion Gap 2 mmol/L (5-15) L Blood Urea Nitrogen 18 mg/dL (7-18) Creatinine 0.7 MG/DL (0.55-1.30) Estimat Glomerular Filtration Rate > 60 mL/min (>60) Glucose Level 166 MG/DL (74-106) H Calcium Level 7.3 MG/DL (8.5-10.1) L Phosphorus Level 2.6 MG/DL (2.5-4.9) Magnesium Level 2.1 MG/DL (1.8-2.4) Total Bilirubin 0.5 MG/DL (0.2-1.0) Aspartate Amino Transf (AST/SGOT) 17 U/L (15-37) Alanine Aminotransferase (ALT/SGPT) 24 U/L (12-78) Alkaline Phosphatase 56 U/L (46-116) C-Reactive Protein, Quantitative 1.6 mg/dL (0.00-0.90) H Pro-B-Type Natriuretic Peptide 2349 pg/mL (0-125) H Total Protein 4.5 G/DL (6.4-8.2) L Albumin 1.3 G/DL (3.4-5.0) L Globulin 3.2 g/dL Albumin/Globulin Ratio 0.4 (1.0-2.7) L POC Whole Blood Glucose 190 MG/DL (74-106) H Arterial Blood pH 7.471 (7.350-7.450) Arterial Blood Partial Pressure CO2 39.9 mmHg (35.0-45.0) Arterial Blood Partial Pressure O2 264.7 mmHg (75.0-100.0) H Arterial Blood HCO3 28.5 mmol/L (22.0-26.0) H Arterial Blood Oxygen Saturation 98.9 % (95-100) Arterial Blood Base Excess 4.5 (-2-2) H Jonathan Test Positive Elayne Allred MD Jul 12, 2020 13:16
--- NOTE | 2020-07-12 15:45 | NUR ---
NURSE NOTES: Dr. Gordon at bedside. He said that he'll decide tomorrow if patient will have tracheostomy or different day.
[2020-07-12] MEDS ORDERED: NS 275ml ONE (15:59)
[2020-07-12] MEDS ORDERED: 1/2 NS 1000ml IV ONE (16:05)
--- NOTE | 2020-07-12 16:19 | Surgery Progress Note ---
Surgery Progress Note Subjective Additional Comments plan trach soon cont current care chest tube out on right left okay cxr Objective Last 24 Hour Vital Signs Date Time Temp Pulse Resp B/P (MAP) Pulse Ox O2 Delivery O2 Flow Rate FiO2 07/12/20 15:27 68 07/12/20 15:00 75 25 70 07/12/20 15:00 66 27 127/68 (87) 97 07/12/20 14:00 65 28 147/81 (103) 96 07/12/20 13:00 48 24 116/59 (78) 97 07/12/20 12:00 Mechanical Ventilator Mechanical Ventilator 07/12/20 12:00 98.9 47 24 104/58 (73) 97 07/12/20 11:43 46 07/12/20 11:20 52 25 70 07/12/20 11:00 47 24 107/57 (74) 96 07/12/20 10:00 48 24 93/58 (70) 98 07/12/20 09:00 54 25 114/63 (80) 97 07/12/20 08:55 70 07/12/20 08:55 70 07/12/20 08:00 Mechanical Ventilator Mechanical Ventilator 07/12/20 08:00 98.5 48 32 97/57 (70) 97 07/12/20 08:00 80 07/12/20 07:56 48 07/12/20 07:15 55 24 80 07/12/20 07:00 51 25 119/65 (83) 97 07/12/20 06:00 57 26 119/66 (83) 97 07/12/20 05:00 60 23 101/82 (88) 95 07/12/20 04:00 51 07/12/20 04:00 Mechanical Ventilator Mechanical Ventilator 07/12/20 04:00 98.2 51 25 110/62 (78) 98 07/12/20 04:00 80 07/12/20 03:50 52 24 80 07/12/20 03:00 59 23 103/90 (94) 98 07/12/20 02:00 57 25 132/69 (90) 99 07/12/20 01:00 59 27 125/76 (92) 98 07/12/20 00:00 98.4 56 30 114/82 (93) 98 07/12/20 00:00 56 07/12/20 00:00 80 07/12/20 00:00 Mechanical Ventilator Mechanical Ventilator 07/11/20 23:02 49 25 80 07/11/20 23:00 51 24 96/61 (73) 98 07/11/20 22:00 47 23 113/62 (79) 98 07/11/20 21:00 51 24 98/56 (70) 98 07/11/20 20:00 Mechanical Ventilator Mechanical Ventilator 07/11/20 20:00 97.8 56 25 117/71 (86) 98 07/11/20 20:00 80 07/11/20 19:46 47 24 80 07/11/20 19:27 46 07/11/20 19:00 52 21 109/64 (79) 99 07/11/20 18:00 66 24 99/56 (70) 100 07/11/20 17:00 97.6 53 26 117/62 (80) 100 I&O Intake and Output 07/11/20 07/12/20 19:00 07:00 Intake Total 720 ml 680 ml Output Total 920 ml 820 ml Balance -200 ml -140 ml Tube Feeding 600 ml 500 ml Other 120 ml 180 ml Output Urine Total 845 ml 600 ml Chest Tube Drainage Total 75 ml 220 ml # Bowel Movements 1 2 Dressing: other Wound: other Cardiovascular: RSR Respiratory: decreased breath sounds Abdomen: soft, non-tender, present bowel sounds Extremities: no cyanosis Laboratory Tests Test 07/12/20 04:00 07/12/20 05:11 07/12/20 08:13 White Blood Count 7.5 K/UL (4.8-10.8) Red Blood Count 2.83 M/UL (4.20-5.40) L Hemoglobin 9.0 G/DL (12.0-16.0) L Hematocrit 27.1 % (37.0-47.0) L Mean Corpuscular Volume 96 FL (80-99) Mean Corpuscular Hemoglobin 31.8 PG (27.0-31.0) H Mean Corpuscular Hemoglobin Concent 33.2 G/DL (32.0-36.0) Red Cell Distribution Width 17.2 % (11.6-14.8) H Platelet Count 125 K/UL (150-450) L Mean Platelet Volume 7.8 FL (6.5-10.1) Neutrophils (%) (Auto) 78.4 % (45.0-75.0) H Lymphocytes (%) (Auto) 16.4 % (20.0-45.0) L Monocytes (%) (Auto) 4.4 % (1.0-10.0) Eosinophils (%) (Auto) 0.6 % (0.0-3.0) Basophils (%) (Auto) 0.2 % (0.0-2.0) Sodium Level 148 MMOL/L (136-145) H Potassium Level 3.6 MMOL/L (3.5-5.1) Chloride Level 116 MMOL/L (98-107) H Carbon Dioxide Level 30 MMOL/L (21-32) Anion Gap 2 mmol/L (5-15) L Blood Urea Nitrogen 18 mg/dL (7-18) Creatinine 0.7 MG/DL (0.55-1.30) Estimat Glomerular Filtration Rate > 60 mL/min (>60) Glucose Level 166 MG/DL (74-106) H Calcium Level 7.3 MG/DL (8.5-10.1) L Phosphorus Level 2.6 MG/DL (2.5-4.9) Magnesium Level 2.1 MG/DL (1.8-2.4) Total Bilirubin 0.5 MG/DL (0.2-1.0) Aspartate Amino Transf (AST/SGOT) 17 U/L (15-37) Alanine Aminotransferase (ALT/SGPT) 24 U/L (12-78) Alkaline Phosphatase 56 U/L (46-116) C-Reactive Protein, Quantitative 1.6 mg/dL (0.00-0.90) H Pro-B-Type Natriuretic Peptide 2349 pg/mL (0-125) H Total Protein 4.5 G/DL (6.4-8.2) L Albumin 1.3 G/DL (3.4-5.0) L Globulin 3.2 g/dL Albumin/Globulin Ratio 0.4 (1.0-2.7) L POC Whole Blood Glucose 190 MG/DL (74-106) H Arterial Blood pH 7.471 (7.350-7.450) Arterial Blood Partial Pressure CO2 39.9 mmHg (35.0-45.0) Arterial Blood Partial Pressure O2 264.7 mmHg (75.0-100.0) H Arterial Blood HCO3 28.5 mmol/L (22.0-26.0) H Arterial Blood Oxygen Saturation 98.9 % (95-100) Arterial Blood Base Excess 4.5 (-2-2) H Jonathan Test Positive Plan Problems: (1) Respiratory distress Assessment & Plan: Respiratory insufficiency requiring prolonged ventilator support. Patient on minimal vent settings right now currently in stable but unfortunately not safe for extubation. Tracheostomy is indicated recommended. I discussed case with pulmonology team ICU team medical teams. Patient unable to make decisions and her current condition and given her history. The care team has been contacted and will be reviewed for evaluation and consideration of the tracheostomy. If consented I think it is reasonable for tracheostomy given patient's current CODE STATUS care plan and goals of care. Extubation his current status is potentially high risk for reintubation emergency complication. We will plan for tracheostomy if consent is obtained. Thank you for let me participate patient's care will follow with recommendations (2) Encephalopathy chronic (3) Dysphagia (4) Down's syndrome (5) Sepsis (6) Acute respiratory failure (7) Pneumonia (8) Trisomy 21, Down syndrome (9) LEANN (acute kidney injury) (10) Bacteremia (11) Hypokalemia (12) Anemia (13) Diarrhea (14) Hypernatremia (15) Pneumothorax (16) Pneumothorax, right Assessment & Plan: right ptx. s/p chest tube tube removed 07/11 left ptx tube placed 07/10 (17) Cardiac arrest (18) ARDS (adult respiratory distress syndrome) (19) Septic shock (20) HCAP (healthcare-associated pneumonia) (21) Respiratory failure requiring intubation (22) Seizure disorder (23) Hypothyroidism Mark Gordon Jul 12, 2020 16:19
--- NOTE | 2020-07-12 17:00 | NUR ---
NURSE NOTES: Bedbath provided by 2 staff. Patient remains vent dependent.
--- NOTE | 2020-07-12 18:00 | Internal Med Progress Note ---
Subjective Date of Service: Jul 12, 2020 Physician Name Joni Copeland Attending Physician Elayne Allred MD Current Medications Medications (Trade) Dose Ordered Sig/Katy Route PRN Reason Start Time Stop Time Status Last Admin Dose Admin Acetaminophen (Tylenol) 650 mg Q4H PRN GT For Pain 07/01/20 17:15 07/31/20 17:14 07/10/20 17:46 Chlorhexidine Gluconate (Alla-Hex 2%) 1 applic DAILY@2000 TOPIC 06/08/20 20:00 09/06/20 19:59 07/11/20 19:51 Clotrimazole (Lotrimin) 1 applic Q12HR TOPIC 06/07/20 13:00 09/05/20 12:59 07/12/20 09:16 Dextrose (Dextrose 50%) 25 ml Q30M PRN IV Hypoglycemia 06/03/20 11:30 08/28/20 11:29 Dextrose (Dextrose 50%) 50 ml Q30M PRN IV Hypoglycemia 06/03/20 11:30 08/28/20 11:29 Hydrocortisone (Solu-CORTEF) 50 mg EVERY 12 HOURS IV 07/10/20 21:00 10/04/20 20:59 07/12/20 09:15 Insulin Aspart (NovoLOG) Q6HR SUBQ 06/26/20 12:00 09/24/20 11:59 07/12/20 17:51 Insulin Detemir (Levemir) 10 units Q12HR SUBQ 06/26/20 10:00 09/24/20 09:59 07/12/20 09:17 Levothyroxine Sodium (Synthroid) 75 mcg DAILY@0630 GT 07/08/20 06:30 08/07/20 06:29 07/12/20 05:32 Loperamide HCl (Imodium) 2 mg Q6H PRN NG Diarrhea 06/24/20 10:30 07/24/20 10:29 07/01/20 11:41 Pantoprazole (Protonix) 40 mg EVERY 12 HOURS IVP 07/06/20 21:00 08/05/20 20:59 07/12/20 09:16 Potassium Chloride (K-Dur) 40 meq EVERY 12 HOURS GT 07/04/20 21:00 09/26/20 12:14 07/12/20 09:15 Sodium Chloride 1,000 ml @ 50 mls/hr Q20H IV 07/12/20 11:00 08/11/20 10:59 07/12/20 11:00 Allergies: Coded Allergies: No Known Allergies (Unverified , 10/16/18) ROS Limited/Unobtainable: Yes Subjective 59 YO F with Down's syndrome admitted with hypoxia. Now sepsis and pneumonia. Cover for Int Arturo-DR Hawk. ICU. Intubated and sedated Objective Last Vital Signs Date Time Temp Pulse Resp B/P (MAP) Pulse Ox O2 Delivery O2 Flow Rate FiO2 07/12/20 17:00 98.6 82 29 121/110 (114) 97 07/12/20 17:00 70 07/12/20 16:00 Mechanical Ventilator Mechanical Ventilator Laboratory Tests Test 07/12/20 04:00 07/12/20 05:11 07/12/20 08:13 07/12/20 17:47 White Blood Count 7.5 K/UL (4.8-10.8) Red Blood Count 2.83 M/UL (4.20-5.40) L Hemoglobin 9.0 G/DL (12.0-16.0) L Hematocrit 27.1 % (37.0-47.0) L Mean Corpuscular Volume 96 FL (80-99) Mean Corpuscular Hemoglobin 31.8 PG (27.0-31.0) H Mean Corpuscular Hemoglobin Concent 33.2 G/DL (32.0-36.0) Red Cell Distribution Width 17.2 % (11.6-14.8) H Platelet Count 125 K/UL (150-450) L Mean Platelet Volume 7.8 FL (6.5-10.1) Neutrophils (%) (Auto) 78.4 % (45.0-75.0) H Lymphocytes (%) (Auto) 16.4 % (20.0-45.0) L Monocytes (%) (Auto) 4.4 % (1.0-10.0) Eosinophils (%) (Auto) 0.6 % (0.0-3.0) Basophils (%) (Auto) 0.2 % (0.0-2.0) Sodium Level 148 MMOL/L (136-145) H Potassium Level 3.6 MMOL/L (3.5-5.1) Chloride Level 116 MMOL/L (98-107) H Carbon Dioxide Level 30 MMOL/L (21-32) Anion Gap 2 mmol/L (5-15) L Blood Urea Nitrogen 18 mg/dL (7-18) Creatinine 0.7 MG/DL (0.55-1.30) Estimat Glomerular Filtration Rate > 60 mL/min (>60) Glucose Level 166 MG/DL (74-106) H Calcium Level 7.3 MG/DL (8.5-10.1) L Phosphorus Level 2.6 MG/DL (2.5-4.9) Magnesium Level 2.1 MG/DL (1.8-2.4) Total Bilirubin 0.5 MG/DL (0.2-1.0) Aspartate Amino Transf (AST/SGOT) 17 U/L (15-37) Alanine Aminotransferase (ALT/SGPT) 24 U/L (12-78) Alkaline Phosphatase 56 U/L (46-116) C-Reactive Protein, Quantitative 1.6 mg/dL (0.00-0.90) H Pro-B-Type Natriuretic Peptide 2349 pg/mL (0-125) H Total Protein 4.5 G/DL (6.4-8.2) L Albumin 1.3 G/DL (3.4-5.0) L Globulin 3.2 g/dL Albumin/Globulin Ratio 0.4 (1.0-2.7) L POC Whole Blood Glucose 190 MG/DL (74-106) H 149 MG/DL (74-106) H Arterial Blood pH 7.471 (7.350-7.450) Arterial Blood Partial Pressure CO2 39.9 mmHg (35.0-45.0) Arterial Blood Partial Pressure O2 264.7 mmHg (75.0-100.0) H Arterial Blood HCO3 28.5 mmol/L (22.0-26.0) H Arterial Blood Oxygen Saturation 98.9 % (95-100) Arterial Blood Base Excess 4.5 (-2-2) H Jonathan Test Positive Intake and Output 07/11/20 07/12/20 19:00 07:00 Intake Total 720 ml 680 ml Output Total 920 ml 820 ml Balance -200 ml -140 ml Tube Feeding 600 ml 500 ml Other 120 ml 180 ml Output Urine Total 845 ml 600 ml Chest Tube Drainage Total 75 ml 220 ml # Bowel Movements 1 2 Objective General Appearance: WD/WN, no apparent distress, alert EENT: PERRL/EOMI, normal ENT inspection Neck: non-tender, normal alignment, supple, normal inspection Cardiovascular: normal peripheral pulses, normal rate, regular rhythm, no gallop/murmur, no JVD Respiratory/Chest: Mech vent; decreased breath sounds, crackles/rales, rhonchi - bilaterally, expiratory wheezing Abdomen: normal bowel sounds, non tender, soft, no organomegaly, no mass Extremities: normal range of motion 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 S/P amikacin per ID=Dr Camejo. Pulmonary/Critical care=DR Allred. COVID NEG (2) Sepsis Assessment & Plan: Staph haemolyticus. S/P amikacin per ID=Dr Camejo (3) Down's syndrome (4) Dysphagia Assessment & Plan: S/P PEG (5) Seizure disorder Assessment & Plan: Continue keppra and depakote (6) Hypothyroidism Assessment & Plan: Continue synthroid (7) Acute respiratory failure Assessment & Plan: Pulmonary = Dr Allred; mech vent (8) Pneumothorax, right Assessment & Plan: Continue chest tube per pulmonary (9) Cardiac arrest Assessment & Plan: 06/03/20-see cardiology note=Joni Lord MD Jul 12, 2020 18:00
--- NOTE | 2020-07-12 18:30 | NUR ---
NURSE NOTES: No signs and symptoms of hypoglycemia.
--- NOTE | 2020-07-12 19:30 | NUR ---
NURSE NOTES: Received pt with eyes open and with good eye contact , orally intubated on ac mode , pt vent always making sounds due to pt losing some volume Dr Allred was aware, SB, SR on the monitor, BP stable afebrile. Left chest Thoravent to low cont suction with light yellowish drainage, minimal to mod in amt, no airleak Will continue to monitor.
--- NOTE | 2020-07-12 19:35 | NUR ---
NURSE HAND-OFF REPORT: Latest Vital Signs: Temperature 98.6 , Pulse 57 , B/P 98 /62 , Respiratory Rate 31 , O2 SAT 99 , Mechanical Ventilator, O2 Flow Rate 15.0 . Vital Sign Comment: On continuous IVF of 1/2 NS running at 50ml/hour. EKG Rhythm: Sinus Bradycardia Rhythm change?: N Latest Osorio Fall Score: 70 Fall Risk: High Risk Safety Measures: Call light Within Reach, Bed Alarm Zone 1, Side Rails Side Rails x3, Bed position Low and Locked. Fall Precautions: Yellow Socks Door Sign Patient Fall Education Contact isolation endorsed. Report given to Marci Perez RN.
[2020-07-12] MEDS: Dyna-Hex 2% Top Sol 2oz TOPIC SCH (20:04)
--- NOTE | 2020-07-12 21:41 | NUR ---
NURSE NOTES: Notify Dr Allred that pt cont losing her Tidal volume,
[2020-07-13] VITALS (25 sets, daily range): BP systolic 79–132; BP diastolic 37–87
--- NOTE | 2020-07-13 00:30 | NUR ---
NURSE NOTES: RE intubated Raymond Lopez with size 7.5 ETT at 23cm lip line. CXR were ordered
[2020-07-13] MEDS ORDERED: LORazepam Inj 2mg/ml 1ml IV PRN (00:45)
[2020-07-13] MEDS: NovoLOG Insulin Flexpen SUBQ SCH ×5 (00:46→23:53)
--- NOTE | 2020-07-13 02:23 | Diagnostic Imaging Report ---
EXAM: XR Chest, 1 View CLINICAL HISTORY: S/P INTUB TECHNIQUE: Frontal view of the chest. COMPARISON: Chest radiograph July 12, 2020 FINDINGS/IMPRESSION: There is an endotracheal tube which terminates approximately 5 mm above the joseph. Left upper extremity PICC line terminates at the cavoatrial junction. Extensive bilateral airspace opacities, right greater than left, consistent with multifocal infiltrate worse pulmonary edema. This is similar in appearance to the prior study. Worsening, small left pleural effusion. This may be secondary to redistribution as the right-sided pleural effusion has mildly improved. Cardiomegaly.
--- NOTE | 2020-07-13 02:51 | Emergency Room Report ---
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 COVID-19 Screening: Negative COVID-19 COVID-19 Testing Source: 05/18/20 Nursing Documentation-PMH Past Medical History: No History, Except For Hx Cardiac Problems: No - PVD Hx Diabetes: No - Hypothyroid Hx Cancer: No Hx Gastrointestinal Problems: No - gastrostomy Hx Neurological Problems: Yes - down syndrome Hx Seizures: Yes Hx Speech Problem: Yes Physical Exam Vital Signs Date Time Temp Pulse Resp B/P (MAP) Pulse Ox O2 Delivery O2 Flow Rate FiO2 07/09/20 07:00 98.0 56 23 120/68 (85) 94 07/09/20 07:06 60 07/09/20 08:00 Mechanical Ventilator Mechanical Ventilator Mechanical Ventilator Procedures Critical Care Time Critical Care Time i. I feel this is a highly complex case requiring extensive working including EKG/Rhythm strip, Xray/CT/US, Blood/urine lab work, repeat exams while in ED, and administration of strong opiates/narcotics for pain control, admission to hospital or close patient follow up. Total time: 30 min bedside evaluation and treatment excludes procedures (EKG). Reason for critical care: respiratory failure. malfunctioning ET tube Possible complications: hypotension, hypertension, DE, shock, arrhythmias, metabolic acidosis, end organ damage, respiratory failure. Interventions: Intubation Course: Patient not getting adequate tidal volumes. Likely bit through her ET tube. History of Down syndrome. Using bougie I exchange the ET tube. Chest x- ray confirms ET tube in place. Significant ARDS. Consultations: nursing staff, EMS, family Performed by: Dr Campbell Tolerated well condition = critical j. because of unstable vital signs this patient had a condition that could potentially threaten life or limb. I feel this is a critical patient who required my full attention while patient was considered critical. Total Critical Care Time excluding procedures was greater than 35 minutes Intubation Intubation : Consent: Emergent Intubation Method: orotracheal Tube Size (cm): 7.5 Medications: Etomidate, Rocuronium Breath Sounds after Intubation: equal Intubation Complications: no complications Post Intubation Xray: Yes Attempts: One Patient Tolerated: Well Complications: None Medical Decision Making Diagnostic Impression: Primary Impression: ARDS (adult respiratory distress syndrome) Additional Impressions: HCAP (healthcare-associated pneumonia) Septic shock Respiratory failure requiring intubation ER Course Called to the ICU to evaluate this patient. History of Down syndrome. ARDS. Intubated. Patient is not getting adequate tidal volumes through her ET tube. Likely has bitten the balloon. Has done this previously. This is numerous times the ET tube has been replaced. Patient is scheduled for trach this week. Using bougie I exchange the ET tube without complication. Patient given etomid ate and rocuronium. Chest x-ray confirms ET tube placement. Significant ARDS. Ativan ordered as needed Last Vital Signs Date Time Temp Pulse Resp B/P (MAP) Pulse Ox O2 Delivery O2 Flow Rate FiO2 07/13/20 02:00 67 29 116/62 (80) 99 07/13/20 00:00 Mechanical Ventilator Mechanical Ventilator 07/13/20 00:00 98.4 07/12/20 22:36 70 Status: improved Disposition: ADMITTED INPATIENT Condition: Critical Referrals: NON PHYSICIAN (PCP) Jt Campbell MD Jul 13, 2020 02:50
--- NOTE | 2020-07-13 03:07 | NUR ---
NURSE NOTES: Ativan 2mg ivp was given due to pts anxiety .
--- NOTE | 2020-07-13 05:00 | NUR ---
NURSE NOTES: Complete bed bath with bed vhanged was done.
--- NOTE | 2020-07-13 06:00 | NUR ---
NURSE NOTES: Accucheck 159, with coverage pls see emar.
--- NOTE | 2020-07-13 07:15 | NUR ---
NURSE HAND-OFF REPORT: Latest Vital Signs: Temperature 98.8 , Pulse 66 , B/P 97 /54 , Respiratory Rate 27 , O2 SAT 99 , Mechanical Ventilator, O2 Flow Rate 15.0 . Vital Sign Comment: EKG Rhythm: Sinus Rhythm Rhythm change?: N Notified?: Y Chaparro Oliveros MD Response: No New Orders Received Latest Osorio Fall Score: 70 Fall Risk: High Risk Safety Measures: Call light Within Reach, Bed Alarm Zone 1, Side Rails Side Rails x3, Bed position Low and Locked. Fall Precautions: Yellow Socks Door Sign Patient Fall Education Report given to Juan C LUJAN
--- NOTE | 2020-07-13 07:16 | NUR ---
NURSE NOTES: Pt received from Marci Perez RN. Pt is asleep in bed, opens eyes spontaneously and makes eye contact when called by name but unable to follow simple commands. pupils are equal and round 3 mm bilaterally with sluggish rxn to light. Pt noted in SR to pvc monitor. radial and dorsalis pedis pulses 2+. no edema noted. Pt is mechanically ventilated with a 7.5 ETT noted 23 cm at the lip line with following settings: AC 24 TV 500 FiO2 100% Peep 0. Right upper lung lobe noted with crackles; left upper lung lobe noted with rhonchi; bilat lower lobes diminished upon auscultation. Abd is round, soft, and non-tender with active bowel sounds to all quadrants. Pt has a GT clamped at this time for recent Synthroid administration. F/C noted draining yellow, clear urine. Skin alterations noted. Pt on CACHORRO mattress. Pt has a JODY PICC with dry and intact dressing running NS TKO at 5 cc/hr. SOLDERER FURNACE restraints noted; radial pulses palpable; skin to both wrists intact without redness. Bed in lowest position, alarm on, side rails up x 2 and padded per seizure precaution. Call light within reach. Will continue to monitor. Addendum: 07/13/20 at 1444 by Mary Britt RN Amendment: Pt also receiving 1/2 NS at 50 cc/hr. Addendum: 07/14/20 at 0814 by Mary Britt RN Late entry: chest tube noted from anterior left upper chest (thoravent to pleurvac drainage system). water level adjusted. hooked to wall suction. no air leak present.
[2020-07-13 07:18] LABS: BASOPHILS % (AUTO) 0.6 % (0.0-2.0); EOSINOPHILS % (AUTO) 0.2 % (0.0-3.0); HEMOGLOBIN 10.3 G/DL (12.0-16.0); LYMPHOCYTES % (AUTO) 19.9 % (20.0-45.0); MEAN CORPUSCULAR VOLUME 97 FL (80-99); MONOCYTES % (AUTO) 1.9 % (1.0-10.0); NEUTROPHILS % (AUTO) 77.4 % (45.0-75.0); PLATELET COUNT 108 K/UL (150-450); RED BLOOD COUNT 3.21 M/UL (4.20-5.40); RED CELL DISTRIBUTION WIDTH 17.4 % (11.6-14.8); WHITE BLOOD COUNT 12.3 K/UL (4.8-10.8)
[2020-07-13 07:49] LABS: INR 1.2 (0.9-1.1)
[2020-07-13 07:58] LABS: ALBUMIN 1.4 G/DL (3.4-5.0); ALBUMIN/GLOBULIN RATIO 0.4 (1.0-2.7); ALKALINE PHOSPHATASE 58 U/L (46-116); ANION GAP 5 mmol/L (5-15); ASPARTATE AMINO TRANSFERASE 27 U/L (15-37); BILIRUBIN,TOTAL 0.6 MG/DL (0.2-1.0); BLOOD UREA NITROGEN 17 mg/dL (7-18); CALCIUM 7.7 MG/DL (8.5-10.1); CARBON DIOXIDE 28 MMOL/L (21-32); CHLORIDE 113 MMOL/L (98-107); CREATININE 0.7 MG/DL (0.55-1.30); PHOSPHORUS 1.8 MG/DL (2.5-4.9); POTASSIUM 3.7 MMOL/L (3.5-5.1); SODIUM 146 MMOL/L (136-145)
--- NOTE | 2020-07-13 08:37 | General Progress Note ---
Subjective ROS Limited/Unobtainable: No Allergies: Coded Allergies: No Known Allergies (Unverified , 10/16/18) Objective Last 24 Hour Vital Signs Date Time Temp Pulse Resp B/P (MAP) Pulse Ox O2 Delivery O2 Flow Rate FiO2 07/13/20 08:00 100 07/13/20 07:00 66 27 97/54 (68) 99 07/13/20 06:00 67 18 113/87 (96) 99 07/13/20 05:00 64 21 79/62 (68) 100 07/13/20 04:00 Mechanical Ventilator Mechanical Ventilator 07/13/20 04:00 98.8 73 19 104/74 (84) 89 07/13/20 04:00 100 07/13/20 04:00 59 07/13/20 03:36 60 20 113/87 95 07/13/20 03:30 73 24 70 07/13/20 03:06 74 26 104/60 95 07/13/20 03:00 71 27 96/51 (66) 94 07/13/20 02:00 67 29 116/62 (80) 99 07/13/20 01:00 67 30 132/82 (99) 98 07/13/20 00:00 Mechanical Ventilator Mechanical Ventilator 07/13/20 00:00 98.4 59 24 124/66 (85) 98 07/13/20 00:00 58 07/13/20 00:00 70 07/12/20 23:00 56 22 100/76 (84) 92 07/12/20 22:36 64 24 70 07/12/20 22:00 60 24 93/56 (68) 90 07/12/20 21:00 60 27 107/64 (78) 99 07/12/20 20:00 Mechanical Ventilator Mechanical Ventilator 07/12/20 20:00 98.0 54 24 106/81 (89) 98 07/12/20 20:00 59 07/12/20 19:30 58 24 70 07/12/20 19:00 57 31 98/62 (74) 99 07/12/20 18:00 65 23 104/60 (75) 97 07/12/20 17:00 98.6 82 29 121/110 (114) 97 07/12/20 17:00 70 07/12/20 16:00 100 29 110/61 (77) 96 07/12/20 16:00 70 07/12/20 16:00 Mechanical Ventilator Mechanical Ventilator 07/12/20 15:27 68 07/12/20 15:00 75 25 70 07/12/20 15:00 66 27 127/68 (87) 97 07/12/20 14:00 65 28 147/81 (103) 96 07/12/20 13:00 48 24 116/59 (78) 97 07/12/20 12:00 Mechanical Ventilator Mechanical Ventilator 07/12/20 12:00 98.9 47 24 104/58 (73) 97 07/12/20 11:43 46 07/12/20 11:20 52 25 70 07/12/20 11:00 47 24 107/57 (74) 96 07/12/20 10:00 48 24 93/58 (70) 98 07/12/20 09:00 54 25 114/63 (80) 97 07/12/20 08:55 70 07/12/20 08:55 70 Intake and Output 07/12/20 07/13/20 19:00 07:00 Intake Total 1410 ml 1040 ml Output Total 635 ml 730 ml Balance 775 ml 310 ml Free Water 100 ml 90 ml IV Total 650 ml 350 ml Tube Feeding 600 ml 600 ml Other 60 ml Output Urine Total 635 ml 730 ml # Bowel Movements 1 3 Laboratory Tests 07/12/20 17:47: POC Whole Blood Glucose 149H 07/12/20 20:55: POC Whole Blood Glucose 165H 07/13/20 06:25: White Blood Count 12.3#H, Red Blood Count 3.21L, Hemoglobin 10.3L, Hematocrit 31 .0L, Mean Corpuscular Volume 97, Mean Corpuscular Hemoglobin 32.0H, Mean Corpuscular Hemoglobin Concent 33.1, Red Cell Distribution Width 17.4H, Platelet Count 108L, Mean Platelet Volume 7.8, Neutrophils (%) (Auto) 77.4H, Lymphocytes (%) (Auto) 19.9L, Monocytes (%) (Auto) 1.9, Eosinophils (%) (Auto) 0.2, Basophils (%) (Auto) 0.6, Prothrombin Time 12.6H, Prothromb Time International Ratio 1.2H, Activated Partial Thromboplast Time 24, Sodium Level 146H, Potassium Level 3.7, Chloride Level 113H, Carbon Dioxide Level 28, Anion Gap 5, Blood Urea Nitrogen 17, Creatinine 0.7, Estimat Glomerular Filtration Rate > 60, Glucose Level 174H, Calcium Level 7.7L, Phosphorus Level 1.8L, Magnesium Level 2.0, Total Bilirubin 0.6, Aspartate Amino Transf (AST/SGOT) 27, Alanine Aminotransferase (ALT/SGPT) [Pending], Alkaline Phosphatase 58, Total Protein 5.0L, Albumin 1.4L, Globulin 3.6, Albumin/Globulin Ratio 0.4L 07/13/20 08:18: Arterial Blood pH 7.533H, Arterial Blood Partial Pressure CO2 33.5L, Arterial Blood Partial Pressure O2 283.3H, Arterial Blood HCO3 27.6H, Arterial Blood Oxygen Saturation 99.0, Arterial Blood Base Excess 4.9H, Jonathan Test Positive Height (Feet): 5 Height (Inches): 3.00 Weight (Pounds): 172 General Appearance: no apparent distress EENT: normal ENT inspection Neck: supple Cardiovascular: normal rate Respiratory/Chest: decreased breath sounds Abdomen: normal bowel sounds, non tender, soft Extremities: non-tender Assessment/Plan Status: stable, not improved, unchanged Assessment/Plan: 1. History of Down syndrome. 2. Dysphagia with G-tube. 3. Seizure disorder. 4. Hypothyroidism. 5. LEANN. 6. Pneumonia. 7. Sepsis. fu H&H prn blood transfusion to keep HGB above 7 ppi GTF hold GI procedures for now pending possible Trach Nehemiah Perez MD Jul 13, 2020 08:37
[2020-07-13] MEDS: Hydrocortisone 100mg Inj IV SCH ×2 (08:41→21:16)
[2020-07-13] MEDS: Pantoprazole Inj IVP SCH ×2 (08:41→21:16)
[2020-07-13] MEDS: Levemir Flexpen SUBQ SCH ×2 (08:47→21:23)
--- NOTE | 2020-07-13 09:56 | NUR ---
RADIOLOGY DEPT., LATE ENTRY. CHEST X-RAY PERFORMED AT 00:52 07/13.CONSTANTINE
--- NOTE | 2020-07-13 10:00 | NUR ---
NURSE NOTES: Pt cleaned and repositioned. No distress noted. FiO2 now 85%. Addendum: 07/13/20 at 1433 by Mary Britt RN Late entry: Pt seen by Dr Pitt.
[2020-07-13 10:04] LABS: ALANINE AMINOTRANSFERASE 21 U/L (12-78)
--- NOTE | 2020-07-13 10:20 | Pulmonolgy Critical Care Note ---
Critical Care - Asmt/Plan Problems: (1) Acute respiratory failure (2) Pneumothorax Assessment & Plan: resolved (3) Bacteremia (4) Pneumonia (5) Sepsis (6) HCAP (healthcare-associated pneumonia) (7) Seizure disorder (8) Down's syndrome (9) Trisomy 21, Down syndrome Respiratory: monitor respiratory rate, adjust FIO2, CXR Cardiac: stop pressors, continue to monitor HR/BP Renal: keep IV fluid, check electrolytes Infectious Disease: check cultures, continue antibiotics Gastrointestinal: continue feedings/current rate Endocrine: monitor blood sugar, continue sliding scale insulin Hematologic: monitor H/H, transfuse if hgb<8.5 Neurologic: PRN Ativan, PRN Morphine, keep patient comfortable Affect: PRN ativan Prophylaxis: Protonix Disposition: keep in ICU 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, 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, 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 with: nurses, consultants, telehealth case managerbilingual account manager - Objective Last 24 Hour Vital Signs Date Time Temp Pulse Resp B/P (MAP) Pulse Ox O2 Delivery O2 Flow Rate FiO2 07/13/20 09:00 85 07/13/20 08:35 75 07/13/20 08:00 100 07/13/20 07:25 71 24 100 07/13/20 07:00 66 27 97/54 (68) 99 07/13/20 06:00 67 18 113/87 (96) 99 07/13/20 05:00 64 21 79/62 (68) 100 07/13/20 04:00 Mechanical Ventilator Mechanical Ventilator 07/13/20 04:00 98.8 73 19 104/74 (84) 89 07/13/20 04:00 100 07/13/20 04:00 59 07/13/20 03:36 60 20 113/87 95 07/13/20 03:30 73 24 70 07/13/20 03:06 74 26 104/60 95 07/13/20 03:00 71 27 96/51 (66) 94 07/13/20 02:00 67 29 116/62 (80) 99 07/13/20 01:00 67 30 132/82 (99) 98 07/13/20 00:00 Mechanical Ventilator Mechanical Ventilator 07/13/20 00:00 98.4 59 24 124/66 (85) 98 07/13/20 00:00 58 07/13/20 00:00 70 10/4/20 23:00 56 22 100/76 (84) 92 07/12/20 22:36 64 24 70 07/12/20 22:00 60 24 93/56 (68) 90 07/12/20 21:00 60 27 107/64 (78) 99 07/12/20 20:00 Mechanical Ventilator Mechanical Ventilator 07/12/20 20:00 98.0 54 24 106/81 (89) 98 07/12/20 20:00 59 07/12/20 19:30 58 24 70 07/12/20 19:00 57 31 98/62 (74) 99 07/12/20 18:00 65 23 104/60 (75) 97 07/12/20 17:00 98.6 82 29 121/110 (114) 97 07/12/20 17:00 70 07/12/20 16:00 100 29 110/61 (77) 96 07/12/20 16:00 70 07/12/20 16:00 Mechanical Ventilator Mechanical Ventilator 07/12/20 15:27 68 07/12/20 15:00 75 25 70 07/12/20 15:00 66 27 127/68 (87) 97 07/12/20 14:00 65 28 147/81 (103) 96 07/12/20 13:00 48 24 116/59 (78) 97 07/12/20 12:00 Mechanical Ventilator Mechanical Ventilator 07/12/20 12:00 98.9 47 24 104/58 (73) 97 07/12/20 11:43 46 07/12/20 11:20 52 25 70 07/12/20 11:00 47 24 107/57 (74) 96 Status: awake Condition: critical HEENT: atraumatic Neck: full ROM Lungs: rales, rhonchi Heart: HR/BP stable Abdomen: soft, active bowel sounds Extremities: no C/C/E Decubiti: location Accucheck: 174 Critical Care - Subjective ROS Limited/Unobtainable: Yes Condition: critical EKG Rhythm: Sinus Rhythm FI02: 85 Vent Support Breath Rate: 24 Vent Support Mode: AC Vent Tidal Volume: 500 Sputum Amount: Small PEEP: 0.0 PIP: 41 Tube Feeding Amount: 50 I&O: Intake and Output 07/12/20 07/13/20 19:00 07:00 Intake Total 1410 ml 1040 ml Output Total 635 ml 730 ml Balance 775 ml 310 ml Free Water 100 ml 90 ml IV Total 650 ml 350 ml Tube Feeding 600 ml 600 ml Other 60 ml Output Urine Total 635 ml 730 ml # Bowel Movements 1 3 CXR: small chest tube in place at left side. No pneumo at right side ET-Tube: 7.5 ET Position: 23 Labs: Laboratory Tests Test 07/12/20 17:47 07/12/20 20:55 07/13/20 06:25 07/13/20 08:18 POC Whole Blood Glucose 149 MG/DL (74-106) H 165 MG/DL (74-106) H White Blood Count 12.3 K/UL (4.8-10.8) #H Red Blood Count 3.21 M/UL (4.20-5.40) L Hemoglobin 10.3 G/DL (12.0-16.0) L Hematocrit 31.0 % (37.0-47.0) L Mean Corpuscular Volume 97 FL (80-99) Mean Corpuscular Hemoglobin 32.0 PG (27.0-31.0) H Mean Corpuscular Hemoglobin Concent 33.1 G/DL (32.0-36.0) Red Cell Distribution Width 17.4 % (11.6-14.8) H Platelet Count 108 K/UL (150-450) L Mean Platelet Volume 7.8 FL (6.5-10.1) Neutrophils (%) (Auto) 77.4 % (45.0-75.0) H Lymphocytes (%) (Auto) 19.9 % (20.0-45.0) L Monocytes (%) (Auto) 1.9 % (1.0-10.0) Eosinophils (%) (Auto) 0.2 % (0.0-3.0) Basophils (%) (Auto) 0.6 % (0.0-2.0) Prothrombin Time 12.6 SEC (9.30-11.50) H Prothromb Time International Ratio 1.2 (0.9-1.1) H Activated Partial Thromboplast Time 24 SEC (23-33) Sodium Level 146 MMOL/L (136-145) H Potassium Level 3.7 MMOL/L (3.5-5.1) Chloride Level 113 MMOL/L (98-107) H Carbon Dioxide Level 28 MMOL/L (21-32) Anion Gap 5 mmol/L (5-15) Blood Urea Nitrogen 17 mg/dL (7-18) Creatinine 0.7 MG/DL (0.55-1.30) Estimat Glomerular Filtration Rate > 60 mL/min (>60) Glucose Level 174 MG/DL (74-106) H Calcium Level 7.7 MG/DL (8.5-10.1) L Phosphorus Level 1.8 MG/DL (2.5-4.9) L Magnesium Level 2.0 MG/DL (1.8-2.4) Total Bilirubin 0.6 MG/DL (0.2-1.0) Aspartate Amino Transf (AST/SGOT) 27 U/L (15-37) Alanine Aminotransferase (ALT/SGPT) 21 U/L (12-78) Alkaline Phosphatase 58 U/L (46-116) Total Protein 5.0 G/DL (6.4-8.2) L Albumin 1.4 G/DL (3.4-5.0) L Globulin 3.6 g/dL Albumin/Globulin Ratio 0.4 (1.0-2.7) L Arterial Blood pH 7.533 (7.350-7.450) Arterial Blood Partial Pressure CO2 33.5 mmHg (35.0-45.0) L Arterial Blood Partial Pressure O2 283.3 mmHg (75.0-100.0) H Arterial Blood HCO3 27.6 mmol/L (22.0-26.0) H Arterial Blood Oxygen Saturation 99.0 % (95-100) Arterial Blood Base Excess 4.9 (-2-2) H Jonathan Test Positive Elayne Allred MD Jul 13, 2020 10:20
--- NOTE | 2020-07-13 12:00 | NUR ---
NURSE NOTES: Pt repositioned. Afebrile. No acute distress noted.
--- NOTE | 2020-07-13 12:26 | NUR ---
OIL SCOUTINFORMATICA SI: RESP FAILURE ETT/VENT SUPPORT,LEUKOCYTOSIS T. 99.0 HR 69 RR 18 B/P 98/82 AC 24 TV 500 FIO2 100% WBC 12.3 NA 146 PT 12.6 INR 1.2 PTT 24 CXR=Worsening, small left pleural effusion. IS: IVF NS @ 50ML/HR PROTONIX IV SOLU CORTEF IV ICU STATUS
--- NOTE | 2020-07-13 12:34 | Nephrology Progress Note ---
Assessment/Plan Problem List: (1) LEANN (acute kidney injury) (2) Respiratory failure requiring intubation (3) Down's syndrome (4) Seizure disorder (5) Hypothyroidism Assessment Acute renal failure, likely due to hypotension Acute respiratory distress, hypoxia Seizure disorder Hypothyroidism Down syndrome Full code Fluid challenge with IV fluids and albumin Midodrine for BP above 100 systolic Check TSH level Check Correct level Monitor renal parameters Urine studies Per orders Plan July 13: Remains intubated on ventilator. Discussed with RN. Unclear if the patient is due for tracheostomy today or not. Apparently the patient was reintubated again yesterday. Patient has left chest tube. Electrolyte abnormalities addressed. July 12: Remains intubated on ventilator. Due for tracheostomy tomorrow. L eft chest tube present. Patient is full code. Labs reviewed. Continue as is. July 11: Remains intubated on ventilator. Due for tracheostomy July 13. Has left-sided chest tube. Stable from renal standpoint to view. Continue per consultants. July 10: Remains intubated on ventilator. Electrolyte abnormalities addressed. Supplements ordered. July 09: Intubated on ventilator. Labs reviewed. Potassium supplement given. Remains bradycardic. Continue per consultants. July 08: Labs reviewed. Electrolyte abnormalities addressed. Heart rate remains bradycardic. Continue per cardiology. Continue to monitor renal pa rameters and electrolytes. July 07: Labs reviewed. Electrolyte abnormalities addressed and replaced. Medication list reviewed. Heart rate remains mid 50s. Continue as is. July 06: On ventilator. Full code. Heart rate low. Will discontinue Midodrin. Continue to rest. Electrolytes within normal limit. Discussed with RN. July 05: Remains intubated. Full code. No plan for tracheostomy yet. Labs reviewed. All acceptable. Continue same management July 04: Labs reviewed. Discussed with RN. Potassium and phosphorus and magnesium replacement ordered. Hemoglobin 9.5. Patient remains full code. Continue per consultants. July 03: Lab reviewed. Renal parameters stable. Full code. Intubated. Electrolyte abnormalities addressed and replacement done. July 02: Lab reviewed. Renal parameters stable. Full code. Intubated. Has right side chest tube. Continue per consultants. July 01: Lab reviewed. Renal parameters stable. Full code. Has right chest tube. Planning process for tracheostomy. Defer to chest and general surgeon. June 30: Labs reviewed. Renal parameters stable. Remains full code. Remains on ventilator. Due for tracheostomy tomorrow. Continue per consultants. Patient has a right chest tube in place at this time. June 29: Labs reviewed. Electrolyte imbalances addressed and supplemented. Remains full code and on ventilator. Continue to monitor renal parameters. Continue per consultants. June 28: Labs reviewed. Serum potassium again low today. Potassium supplement IV and through GT given. Patient remains full code and is on ventilator. Continue per consultants. Continue to monitor electrolytes and renal parameters. June 27: Labs reviewed. Abnormal electrolyte addressed. Remains full code. Remains vented. June 26: Day 27 of hospitalization. Full code. Labs reviewed. Hemoglobin down to 7.5. Electrolyte abnormalities addressed and corrections ordered. Continue to monitor renal parameters. Continue per consultants. Start on Levemir for blood sugar management. Questioning continuation of hydrocortisone? June 25: Labs reviewed. Potassium, phosphorus, hemoglobin, are all low. Potassium and phosphorus IV replacement given. Continue to monitor electrolytes and CBC. Patient remains full code. June 24: Lab reviewed. Low phosphorus low magnesium and low potassium was addressed. Hemoglobin drifting lower. Continue per consultants. Patient remains full code. June 23: Labs reviewed. Patient continues to be on ventilator. D5W for high sodium and also potassium chloride intravenously as supplement given. Hemoglobin 8.4. Continue to monitor electrolytes and renal parameters. June 22: Labs reviewed. Low potassium and high sodium noted. Hemoglobin 8.1 stable. Aim to correct abnormal electrolyte. Continue rest. Will give 2 boluses of D5W 500 cc. June 21: Lab reviewed. Abnormal electrolytes noted and addressed. June 20: Labs reviewed. Potassium supplement given. Patient remains full code. Continue per consultants. June 19: Lab reviewed. Electrolyte abnormalities addressed. Continue per pulmonary and ID. June 18: Lab reviewed. Status unchanged. Serum sodium 151 unchanged. Stable from renal standpoint of view. June 17: Labs reviewed. Status quo. D5W 500 cc IV ordered. Continue to monitor renal parameters. June 16: Status quo. Labs reviewed. Overall condition unchanged. Patient was transfused and hemoglobin higher. Continue current management. Patient remains full code. June 15: Status quo. Overall condition poor. Very low albumin. Edematous. Hypotensive. Hemoglobin lower. Anemia work-up ordered. I favor transfusion 2 units of packed RBCs. Patient remains full code. I favor supportive care only. Will discuss. Sofie 6: Electrolyte abnormalities addressed. Serum creatinine lower. Continue per current management. June 13: Status unchanged. Lab reviewed. Serum potassium 2.7. IV potassium chloride ordered. Serum creatinine low at 1.6 stable. Blood pressure 90s systolic June 12: Status quo. Labs reviewed. Renal parameters stable. Serum creatinine down to 1.6. Medication list reviewed. Continues to be on midodrine. Continue per consultants. June 11: Status quo. Labs reviewed. Electrolytes adjusted. Serum creatinine down to 1.8. Continue per consultants. June 10: Status quo. Labs reviewed. Phosphorus supplement IV given. Serum creatinine 2. Continue per consultants. June 09: Requires less pressors. Albumin bolus given. 1 dose of Lasix IV ordered as the patient severely edematous. Patient serum albumin is very low. Continue per consultants. June 08: Continues to be intubated. Labs reviewed. Serum creatinine 1.9 unchanged. Blood pressure more stable. Off 1 of the pressors. Continue to monitor renal parameters. Continue per consultants. Patient now on hydrocortisone 100 mg every 8 hours. Will decrease IV fluid. Normal saline down to 50 cc an hour. June 07: Intubated. Labs reviewed. Creatinine 1.9 unchanged. Continue same treatment plan. Per consultants. Overall poor prognosis since the patient remains on pressors and her pulmonary status is worsening. June 06: Remains intubated. Labs reviewed. Creatinine 1.9. Blood pressure systolic 90s. Continue per consultants. June 05: Remains intubated. Labs reviewed. Serum creatinine lower to 2. Vancomycin level lower. Remains hypotensive on pressors. Will increase midodrine to 10 mg every 8 hours. Continue per consultants. Continue to monitor renal parameters. June 04: Patient now in ICU. Intubated. On pressors. Labs reviewed. Will increase midodrine. Aim to keep blood pressure over 100 systolic. Will give albumin bolus. Will check vancomycin level which was elevated when checked previously on June 01. Will monitor renal parameters. Continue per consultants. Subjective ROS Limited/Unobtainable: Yes Objective Objective Last 24 Hour Vital Signs Date Time Temp Pulse Resp B/P (MAP) Pulse Ox O2 Delivery O2 Flow Rate FiO2 07/13/20 12:00 98.8 61 24 106/45 (65) 98 07/13/20 12:00 85 07/13/20 11:00 82 27 114/46 (68) 95 07/13/20 10:00 69 25 98/47 (64) 100 07/13/20 09:00 70 24 98/82 (87) 99 07/13/20 09:00 85 07/13/20 08:35 75 07/13/20 08:00 100 07/13/20 08:00 99.0 69 18 99/71 (80) 100 07/13/20 07:25 71 24 100 07/13/20 07:00 66 27 97/54 (68) 99 07/13/20 06:00 67 18 113/87 (96) 99 07/13/20 05:00 64 21 79/62 (68) 100 07/13/20 04:00 Mechanical Ventilator Mechanical Ventilator 07/13/20 04:00 98.8 73 19 104/74 (84) 89 07/13/20 04:00 100 07/13/20 04:00 59 07/13/20 03:36 60 20 113/87 95 07/13/20 03:30 73 24 70 07/13/20 03:06 74 26 104/60 95 07/13/20 03:00 71 27 96/51 (66) 94 07/13/20 02:00 67 29 116/62 (80) 99 07/13/20 01:00 67 30 132/82 (99) 98 07/13/20 00:00 Mechanical Ventilator Mechanical Ventilator 07/13/20 00:00 98.4 59 24 124/66 (85) 98 07/13/20 00:00 58 07/13/20 00:00 70 07/12/20 23:00 56 22 100/76 (84) 92 07/12/20 22:36 64 24 70 07/12/20 22:00 60 24 93/56 (68) 90 07/12/20 21:00 60 27 107/64 (78) 99 07/12/20 20:00 Mechanical Ventilator Mechanical Ventilator 07/12/20 20:00 98.0 54 24 106/81 (89) 98 07/12/20 20:00 59 07/12/20 19:30 58 24 70 07/12/20 19:00 57 31 98/62 (74) 99 07/12/20 18:00 65 23 104/60 (75) 97 07/12/20 17:00 98.6 82 29 121/110 (114) 97 07/12/20 17:00 70 07/12/20 16:00 100 29 110/61 (77) 96 07/12/20 16:00 70 07/12/20 16:00 Mechanical Ventilator Mechanical Ventilator 07/12/20 15:27 68 07/12/20 15:00 75 25 70 07/12/20 15:00 66 27 127/68 (87) 97 07/12/20 14:00 65 28 147/81 (103) 96 07/12/20 13:00 48 24 116/59 (78) 97 Intake and Output 07/12/20 07/13/20 19:00 07:00 Intake Total 1410 ml 1040 ml Output Total 635 ml 730 ml Balance 775 ml 310 ml Free Water 100 ml 90 ml IV Total 650 ml 350 ml Tube Feeding 600 ml 600 ml Other 60 ml Output Urine Total 635 ml 730 ml # Bowel Movements 1 3 Laboratory Tests 07/12/20 17:47: POC Whole Blood Glucose 149H 07/12/20 20:55: POC Whole Blood Glucose 165H 07/13/20 06:25: White Blood Count 12.3#H, Red Blood Count 3.21L, Hemoglobin 10.3L, Hematocrit 31.0L, Mean Corpuscular Volume 97, Mean Corpuscular Hemoglobin 32.0H, Mean Corpuscular Hemoglobin Concent 33.1, Red Cell Distribution Width 17.4H, Platelet Count 108L, Mean Platelet Volume 7.8, Neutrophils (%) (Auto) 77.4H, Lymphocytes (%) (Auto) 19.9L, Monocytes (%) (Auto) 1.9, Eosinophils (%) (Auto) 0.2, Basophils (%) (Auto) 0.6, Prothrombin Time 12.6H, Prothromb Time International Ratio 1.2H, Activated Partial Thromboplast Time 24, Sodium Level 146H, Potassium Level 3.7, Chloride Level 113H, Carbon Dioxide Level 28, Anion Gap 5, Blood Urea Nitrogen 17, Creatinine 0.7, Estimat Glomerular Filtration Rate > 60, Glucose Level 174H, Calcium Level 7.7L, Phosphorus Level 1.8L, Magnesium Level 2.0, Total Bilirubin 0.6, Aspartate Amino Transf (AST/SGOT) 27, Alanine Aminotransferase (ALT/SGPT) 21, Alkaline Phosphatase 58, Total Protein 5.0L, Albumin 1.4L, Globulin 3.6, Albumin/Globulin Ratio 0.4L 07/13/20 08:18: Arterial Blood pH 7.533H, Arterial Blood Partial Pressure CO2 33.5L, Arterial Blood Partial Pressure O2 283.3H, Arterial Blood HCO3 27.6H, Arterial Blood Oxygen Saturation 99.0, Arterial Blood Base Excess 4.9H, Jonathan Test Positive 07/13/20 12:05: POC Whole Blood Glucose 143H Height (Feet): 5 Height (Inches): 3.00 Weight (Pounds): 172 EENT: other - Intubated on ventilator Cardiovascular: normal rate Respiratory/Chest: decreased breath sounds Abdomen: soft Keron Pitt MD Jul 13, 2020 12:34
--- NOTE | 2020-07-13 12:36 | Infectious Diseases Prog Note ---
Assessment/Plan ASSESSMENT: sp code blue 06/03 Septic Shock; SP Fever, recurrent- low grade Leukocytosis; persistent/fluctuating, SP- mild recurrent -06/27 Bcx Neg -06/17 u/a no pyuria -06/16 Bcx NTD (Picc line) -06/14 Bcx NTD ucx Neg sp cx C. parapsilopsis -06/03 u/a no pyuria Pneumonia.- COVID 19 neg x3 Acute hypoxic resp failure on VM> NRB 15l 100%; hypoxic on ABG> now VDRF 06/03- Fio2 80% >100% 06/05> 60% 06/09 >80% 06/10 >95% 06/18 >90% 06/22 >60% 06/23 R tension Pneumothroax sp CT 06/29 07/13 CXR: Extensive bilateral airspace opacities, right greater than left, consistent with multifocal infiltrate worse pulmonary edema. This is similar in appearance to the prior study. Worsening, small left pleural effusion. This may be secondary to redistribution as the right-sided pleural effusion has mildly improved. -06/30 CXR: Interim complete reexpansion of right lung without evidence of residual pneumothorax. Bilateral diffuse and extensive infiltrates. Markedly improved chest wall subcutaneous emphysema -06/29 CXR: Interim reexpansion of previously demonstrated right pneumothorax, status post large bore chest tube placement. -06/22 CXR: Improved aeration of both lungs. -06/13 CXR:Small bilateral pleural effusions with minor edema. Stable edema with mild worsening in the degree of pleural effusion on the right. -06/09 sp cx Neg 06/08 CXR: Extensive bilateral interstitial and airspace disease appears similar to the prior exam. Moderate to large bilateral pleural effusions appear unchanged. 06/05 CXR: Increasing left upper lobe dense consolidation and likely increasing bilateral pleural fluid. Persistent diffuse dense consolidation elsewhere -06/03 sp cx normal resp marie -06/02 CXR: Increased atelectasis of the right lung, since prior exam of 3 days earlier. New or increased right pleural effusion. Increased left basilar consolidation and/or pleural fluid -COVID Rapid PCR neg 05/31, 05/31, 06/03 -05/30 spc x Group G strep -05/30 CXR: Reduced lung volumes. Patchy bilateral predominantly interstitial pulmonary opacities. Could be from edema and/or pneumonia. There is a broader differential. -legionella ag urine, blasto ab, Histo ab, HIV ab screen, FRANCIS, ANCA neg Persistent, high grade bacteremia- -05/30 Bcx 4/4 sets S. haemolyticus; 05/31 Bcx 3/4 S/ epi; 06/04 Bcx 1.4 S. warnerri; 06/06 Bcx Neg -2d echo: no vegetaions seen ua/ wbc 10-15, nit neg, leuk +1; ucx Neg LEANN; -supratherapeutic vanco levels -Seizure disorder. - Hypothyroidism. - Down syndrome. History of PEG tube placement. NM resident PLAN: Monitor off abx unless febrile, increasing WBC and/or HD unstable 06/22 SP Meropenem #18, IV Amikacin #7 06/12/20 SP Daptomycin #11 06/10 SP MIcafungin #7, Linezolid #5 06/05 SP Azithromycin #7/7 06/03 SP Ceftriaxone #2 06/02 SP IV Vancomycin #4, Zosyn #4 05/30 SP Cefepime x1, Flagyl x1 - Monitor CBC, BMP. .f/u cx - COVID neg x3 - Monitor chest x-ray. - Monitor the patient's clinical course and labs. Based on those, we will do further recommendation. -f/u Fungitell, asp ag, flow cytometry -poor prognosis - u/a, ucx, sp cx Thank you, Dr. Allred, for allowing me to participate in the care of this patient. I will follow the patient with you at this hospitalization. Discussed with RN Subjective Allergies: Coded Allergies: No Known Allergies (Unverified , 10/16/18) afebrile remains intubated; Fio2 85% mild leukocytosis Objective Last 24 Hour Vital Signs Date Time Temp Pulse Resp B/P (MAP) Pulse Ox O2 Delivery O2 Flow Rate FiO2 07/13/20 12:00 98.8 61 24 106/45 (65) 98 07/13/20 12:00 85 07/13/20 11:00 82 27 114/46 (68) 95 07/13/20 10:00 69 25 98/47 (64) 100 07/13/20 09:00 70 24 98/82 (87) 99 07/13/20 09:00 85 07/13/20 08:35 75 07/13/20 08:00 100 07/13/20 08:00 99.0 69 18 99/71 (80) 100 07/13/20 07:25 71 24 100 07/13/20 07:00 66 27 97/54 (68) 99 07/13/20 06:00 67 18 113/87 (96) 99 07/13/20 05:00 64 21 79/62 (68) 100 07/13/20 04:00 Mechanical Ventilator Mechanical Ventilator 07/13/20 04:00 98.8 73 19 104/74 (84) 89 07/13/20 04:00 100 07/13/20 04:00 59 07/13/20 03:36 60 20 113/87 95 07/13/20 03:30 73 24 70 07/13/20 03:06 74 26 104/60 95 07/13/20 03:00 71 27 96/51 (66) 94 07/13/20 02:00 67 29 116/62 (80) 99 07/13/20 01:00 67 30 132/82 (99) 98 07/13/20 00:00 Mechanical Ventilator Mechanical Ventilator 07/13/20 00:00 98.4 59 24 124/66 (85) 98 07/13/20 00:00 58 07/13/20 00:00 70 07/12/20 23:00 56 22 100/76 (84) 92 07/12/20 22:36 64 24 70 07/12/20 22:00 60 24 93/56 (68) 90 07/12/20 21:00 60 27 107/64 (78) 99 07/12/20 20:00 Mechanical Ventilator Mechanical Ventilator 07/12/20 20:00 98.0 54 24 106/81 (89) 98 07/12/20 20:00 59 07/12/20 19:30 58 24 70 07/12/20 19:00 57 31 98/62 (74) 99 07/12/20 18:00 65 23 104/60 (75) 97 07/12/20 17:00 98.6 82 29 121/110 (114) 97 07/12/20 17:00 70 07/12/20 16:00 100 29 110/61 (77) 96 07/12/20 16:00 70 07/12/20 16:00 Mechanical Ventilator Mechanical Ventilator 07/12/20 15:27 68 07/12/20 15:00 75 25 70 07/12/20 15:00 66 27 127/68 (87) 97 07/12/20 14:00 65 28 147/81 (103) 96 07/12/20 13:00 48 24 116/59 (78) 97 Height (Feet): 5 Height (Inches): 3.00 Weight (Pounds): 172 HEENT: . ETT in place NECK: No lymphadenopathy. CHEST: Coarse breathing sounds. HEART: S1 and S2. ABDOMEN: Soft. PEG tube in place. EXTREMITIES: No cyanosis at this time . SKIN: no rash Laboratory Tests Test 07/12/20 17:47 07/12/20 20:55 07/13/20 06:25 07/13/20 08:18 POC Whole Blood Glucose 149 MG/DL (74-106) H 165 MG/DL (74-106) H White Blood Count 12.3 K/UL (4.8-10.8) #H Red Blood Count 3.21 M/UL (4.20-5.40) L Hemoglobin 10.3 G/DL (12.0-16.0) L Hematocrit 31.0 % (37.0-47.0) L Mean Corpuscular Volume 97 FL (80-99) Mean Corpuscular Hemoglobin 32.0 PG (27.0-31.0) H Mean Corpuscular Hemoglobin Concent 33.1 G/DL (32.0-36.0) Red Cell Distribution Width 17.4 % (11.6-14.8) H Platelet Count 108 K/UL (150-450) L Mean Platelet Volume 7.8 FL (6.5-10.1) Neutrophils (%) (Auto) 77.4 % (45.0-75.0) H Lymphocytes (%) (Auto) 19.9 % (20.0-45.0) L Monocytes (%) (Auto) 1.9 % (1.0-10.0) Eosinophils (%) (Auto) 0.2 % (0.0-3.0) Basophils (%) (Auto) 0.6 % (0.0-2.0) Prothrombin Time 12.6 SEC (9.30-11.50) H Prothromb Time International Ratio 1.2 (0.9-1.1) H Activated Partial Thromboplast Time 24 SEC (23-33) Sodium Level 146 MMOL/L (136-145) H Potassium Level 3.7 MMOL/L (3.5-5.1) Chloride Level 113 MMOL/L (98-107) H Carbon Dioxide Level 28 MMOL/L (21-32) Anion Gap 5 mmol/L (5-15) Blood Urea Nitrogen 17 mg/dL (7-18) Creatinine 0.7 MG/DL (0.55-1.30) Estimat Glomerular Filtration Rate > 60 mL/min (>60) Glucose Level 174 MG/DL (74-106) H Calcium Level 7.7 MG/DL (8.5-10.1) L Phosphorus Level 1.8 MG/DL (2.5-4.9) L Magnesium Level 2.0 MG/DL (1.8-2.4) Total Bilirubin 0.6 MG/DL (0.2-1.0) Aspartate Amino Transf (AST/SGOT) 27 U/L (15-37) Alanine Aminotransferase (ALT/SGPT) 21 U/L (12-78) Alkaline Phosphatase 58 U/L (46-116) Total Protein 5.0 G/DL (6.4-8.2) L Albumin 1.4 G/DL (3.4-5.0) L Globulin 3.6 g/dL Albumin/Globulin Ratio 0.4 (1.0-2.7) L Arterial Blood pH 7.533 (7.350-7.450) Arterial Blood Partial Pressure CO2 33.5 mmHg (35.0-45.0) L Arterial Blood Partial Pressure O2 283.3 mmHg (75.0-100.0) H Arterial Blood HCO3 27.6 mmol/L (22.0-26.0) H Arterial Blood Oxygen Saturation 99.0 % (95-100) Arterial Blood Base Excess 4.9 (-2-2) H Jonathan Test Positive Test 07/13/20 12:05 POC Whole Blood Glucose 143 MG/DL (74-106) H Current Medications Medications (Trade) Dose Ordered Sig/Katy Route PRN Reason Start Time Stop Time Status Last Admin Dose Admin Acetaminophen (Tylenol) 650 mg Q4H PRN GT For Pain 07/01/20 17:15 07/31/20 17:14 07/10/20 17:46 Chlorhexidine Gluconate (Alla-Hex 2%) 1 applic DAILY@1999 TOPIC 06/08/20 20:00 09/06/20 19:59 07/12/20 20:04 Clotrimazole (Lotrimin) 1 applic Q12HR TOPIC 06/07/20 13:00 09/05/20 12:59 07/13/20 08:41 Dextrose (Dextrose 50%) 25 ml Q30M PRN IV Hypoglycemia 06/03/20 11:30 08/28/20 11:29 Dextrose (Dextrose 50%) 50 ml Q30M PRN IV Hypoglycemia 06/03/20 11:30 08/28/20 11:29 Hydrocortisone (Solu-CORTEF) 50 mg EVERY 12 HOURS IV 07/10/20 21:00 10/04/20 20:59 07/13/20 08:41 Insulin Aspart (NovoLOG) Q6HR SUBQ 06/26/20 12:00 09/24/20 11:59 07/13/20 12:09 Insulin Detemir (Levemir) 10 units Q12HR SUBQ 06/26/20 10:00 09/24/20 09:59 07/13/20 08:47 Levothyroxine Sodium (Synthroid) 75 mcg DAILY@0630 GT 07/08/20 06:30 08/07/20 06:29 07/13/20 06:57 Loperamide HCl (Imodium) 2 mg Q6H PRN NG Diarrhea 06/24/20 10:30 07/24/20 10:29 07/01/20 11:41 Lorazepam (Ativan 2mg/ml 1ml) 2 mg Q4H PRN IV For Anxiety 07/13/20 00:45 07/20/20 00:44 07/13/20 03:06 Pantoprazole (Protonix) 40 mg EVERY 12 HOURS IVP 07/06/20 21:00 08/05/20 20:59 07/13/20 08:41 Potassium Chloride (K-Dur) 40 meq EVERY 12 HOURS GT 07/04/20 21:00 09/26/20 12:14 07/13/20 08:41 Sodium Chloride 1,000 ml @ 50 mls/hr Q20H IV 07/12/20 11:00 08/11/20 10:59 07/13/20 06:20 Suki Camejo M.D. Jul 13, 2020 12:36
--- NOTE | 2020-07-13 14:00 | NUR ---
NURSE NOTES: Pt seen by Dr Gordon. Repositioned. No distress noted. FiO2 titrated down to 75 %.
--- NOTE | 2020-07-13 14:30 | NUR ---
NURSE NOTES: urine and sputum sent down to lab.
--- NOTE | 2020-07-13 14:49 | Surgery Progress Note ---
Surgery Progress Note Subjective Additional Comments ill appearing cxr noted fi02 85% ct in place on suction labs noted wbc Objective Last 24 Hour Vital Signs Date Time Temp Pulse Resp B/P (MAP) Pulse Ox O2 Delivery O2 Flow Rate FiO2 07/13/20 14:00 63 30 90/47 (61) 98 07/13/20 13:50 75 07/13/20 13:00 59 34 95/42 (59) 100 07/13/20 12:00 61 07/13/20 12:00 98.8 61 24 106/45 (65) 98 07/13/20 12:00 85 07/13/20 12:00 Mechanical Ventilator Mechanical Ventilator Mechanical Ventilator 07/13/20 11:15 63 24 75 07/13/20 11:00 82 27 114/46 (68) 95 07/13/20 10:00 69 25 98/47 (64) 100 07/13/20 09:00 70 24 98/82 (87) 99 07/13/20 09:00 85 07/13/20 08:00 100 07/13/20 08:00 71 07/13/20 08:00 Mechanical Ventilator Mechanical Ventilator Mechanical Ventilator 07/13/20 08:00 99.0 69 18 99/71 (80) 100 07/13/20 07:25 71 24 100 07/13/20 07:00 66 27 97/54 (68) 99 07/13/20 06:00 67 18 113/87 (96) 99 07/13/20 05:00 64 21 79/62 (68) 100 07/13/20 04:00 Mechanical Ventilator Mechanical Ventilator 07/13/20 04:00 98.8 73 19 104/74 (84) 89 07/13/20 04:00 100 07/13/20 04:00 59 07/13/20 03:36 60 20 113/87 95 07/13/20 03:30 73 24 70 07/13/20 03:06 74 26 104/60 95 07/13/20 03:00 71 27 96/51 (66) 94 07/13/20 02:00 67 29 116/62 (80) 99 07/13/20 01:00 67 30 132/82 (99) 98 07/13/20 00:00 Mechanical Ventilator Mechanical Ventilator 07/13/20 00:00 98.4 59 24 124/66 (85) 98 07/13/20 00:00 58 07/13/20 00:00 70 07/12/20 23:00 56 22 100/76 (84) 92 07/12/20 22:36 64 24 70 07/12/20 22:00 60 24 93/56 (68) 90 07/12/20 21:00 60 27 107/64 (78) 99 07/12/20 20:00 Mechanical Ventilator Mechanical Ventilator 07/12/20 20:00 98.0 54 24 106/81 (89) 98 07/12/20 20:00 59 07/12/20 19:30 58 24 70 07/12/20 19:00 57 31 98/62 (74) 99 07/12/20 18:00 65 23 104/60 (75) 97 07/12/20 17:00 98.6 82 29 121/110 (114) 97 07/12/20 17:00 70 07/12/20 16:00 100 29 110/61 (77) 96 07/12/20 16:00 70 07/12/20 16:00 Mechanical Ventilator Mechanical Ventilator 07/12/20 15:27 68 07/12/20 15:00 75 25 70 07/12/20 15:00 66 27 127/68 (87) 97 I&O Intake and Output 07/12/20 07/13/20 19:00 07:00 Intake Total 1410 ml 1073.3333 ml Output Total 635 ml 730 ml Balance 775 ml 343.3333 ml Free Water 100 ml 90 ml IV Total 650 ml 383.3333 ml Tube Feeding 600 ml 600 ml Other 60 ml Output Urine Total 635 ml 730 ml # Bowel Movements 1 3 Drains: other Cardiovascular: RSR Respiratory: decreased breath sounds Abdomen: soft, non-tender, present bowel sounds Extremities: no tenderness, no cyanosis Laboratory Tests Test 07/12/20 17:47 07/12/20 20:55 07/13/20 06:25 07/13/20 08:18 POC Whole Blood Glucose 149 MG/DL (74-106) H 165 MG/DL (74-106) H White Blood Count 12.3 K/UL (4.8-10.8) #H Red Blood Count 3.21 M/UL (4.20-5.40) L Hemoglobin 10.3 G/DL (12.0-16.0) L Hematocrit 31.0 % (37.0-47.0) L Mean Corpuscular Volume 97 FL (80-99) Mean Corpuscular Hemoglobin 32.0 PG (27.0-31.0) H Mean Corpuscular Hemoglobin Concent 33.1 G/DL (32.0-36.0) Red Cell Distribution Width 17.4 % (11.6-14.8) H Platelet Count 108 K/UL (150-450) L Mean Platelet Volume 7.8 FL (6.5-10.1) Neutrophils (%) (Auto) 77.4 % (45.0-75.0) H Lymphocytes (%) (Auto) 19.9 % (20.0-45.0) L Monocytes (%) (Auto) 1.9 % (1.0-10.0) Eosinophils (%) (Auto) 0.2 % (0.0-3.0) Basophils (%) (Auto) 0.6 % (0.0-2.0) Prothrombin Time 12.6 SEC (9.30-11.50) H Prothromb Time International Ratio 1.2 (0.9-1.1) H Activated Partial Thromboplast Time 24 SEC (23-33) Sodium Level 146 MMOL/L (136-145) H Potassium Level 3.7 MMOL/L (3.5-5.1) Chloride Level 113 MMOL/L (98-107) H Carbon Dioxide Level 28 MMOL/L (21-32) Anion Gap 5 mmol/L (5-15) Blood Urea Nitrogen 17 mg/dL (7-18) Creatinine 0.7 MG/DL (0.55-1.30) Estimat Glomerular Filtration Rate > 60 mL/min (>60) Glucose Level 174 MG/DL (74-106) H Calcium Level 7.7 MG/DL (8.5-10.1) L Phosphorus Level 1.8 MG/DL (2.5-4.9) L Magnesium Level 2.0 MG/DL (1.8-2.4) Total Bilirubin 0.6 MG/DL (0.2-1.0) Aspartate Amino Transf (AST/SGOT) 27 U/L (15-37) Alanine Aminotransferase (ALT/SGPT) 21 U/L (12-78) Alkaline Phosphatase 58 U/L (46-116) Total Protein 5.0 G/DL (6.4-8.2) L Albumin 1.4 G/DL (3.4-5.0) L Globulin 3.6 g/dL Albumin/Globulin Ratio 0.4 (1.0-2.7) L Arterial Blood pH 7.533 (7.350-7.450) Arterial Blood Partial Pressure CO2 33.5 mmHg (35.0-45.0) L Arterial Blood Partial Pressure O2 283.3 mmHg (75.0-100.0) H Arterial Blood HCO3 27.6 mmol/L (22.0-26.0) H Arterial Blood Oxygen Saturation 99.0 % (95-100) Arterial Blood Base Excess 4.9 (-2-2) H Jonathan Test Positive Test 07/13/20 12:05 POC Whole Blood Glucose 143 MG/DL (74-106) H Plan Problems: (1) Respiratory distress Assessment & Plan: Respiratory insufficiency requiring prolonged ventilator support. Patient on minimal vent settings right now currently in stable but unfortunately not safe for extubation. Tracheostomy is indicated recommended. I discussed case with pulmonology team ICU team medical teams. Patient unable to make decisions and her current condition and given her history. The care team has been contacted and will be reviewed for evaluation and consideration of the tracheostomy. If consented I think it is reasonable for tracheostomy given patient's current CODE STATUS care plan and goals of care. Extubation his current status is potentially high risk for reintubation emergency complication. We will plan for tracheostomy if consent is obtained. Thank you for let me participate patient's care will follow with recommendations will plan for trach when ready wean fi02 (2) Encephalopathy chronic (3) Dysphagia (4) Down's syndrome (5) Sepsis (6) Acute respiratory failure (7) Pneumonia (8) Trisomy 21, Down syndrome (9) LEANN (acute kidney injury) (10) Bacteremia (11) Hypokalemia (12) Anemia (13) Diarrhea (14) Hypernatremia (15) Pneumothorax (16) Pneumothorax, right Assessment & Plan: right ptx. s/p chest tube tube removed 07/11 left ptx tube placed 07/10 (17) Cardiac arrest (18) ARDS (adult respiratory distress syndrome) (19) Septic shock (20) HCAP (healthcare-associated pneumonia) (21) Respiratory failure requiring intubation (22) Seizure disorder (23) Hypothyroidism Benyamini,Mark Jul 13, 2020 14:49
[2020-07-13 15:15] LABS: APPEARANCE,URINE CLEAR; BILIRUBIN, URINE NEGATIVE (NEGATIVE); GLUCOSE, URINE (UA) NEGATIVE (NEGATIVE); KETONES,URINE NEGATIVE (NEGATIVE); LEUKOCYTE ESTERASE ,URINE 2+ (NEGATIVE); NITRITE,URINE NEGATIVE (NEGATIVE); PH,URINE 8 (4.5-8.0); PROTEIN,URINE 1+ (NEGATIVE); UROBILINOGEN,URINE 12 MG/DL (0.0-1.0)
--- NOTE | 2020-07-13 15:20 | NUR ---
NURSE NOTES: Received report from Mary LUJAN
[2020-07-13 15:23] LABS: COLOR,URINE PALE YELLOW
--- NOTE | 2020-07-13 15:24 | NUR ---
NURSE HAND-OFF REPORT: Latest Vital Signs: Temperature 98.8 , Pulse 63 , B/P 101 /53 , Respiratory Rate 26 , O2 SAT 99 , Mechanical Ventilator, FiO2 75%. Vital Sign Comment: stable EKG Rhythm: Sinus Rhythm Rhythm change?: N MD Notified?:n/a MD Response: n/a Latest Osorio Fall Score: 70 Fall Risk: High Risk Safety Measures: Call light Within Reach, Bed Alarm Zone 1, Side Rails Side Rails x3, Bed position Low and Locked. Fall Precautions: Yellow Socks Door Sign Patient Fall Education Report given to Radha Gonzalez, transplant worker.
--- NOTE | 2020-07-13 16:00 | NUR ---
NURSE NOTES: Received patient orally intubated- no response to verbal stimulation but withdraws to stimulation.V/S stable , ekg monitor shows SR no ectopy noted. No resp. distress noted. Patient getting Vital AF 1.2 at 50 cc/hr via GT. Thora vent in place @ left upper chest connected to pleuravac with 20 cm H2o suction
--- NOTE | 2020-07-13 18:57 | Internal Med Progress Note ---
Subjective Date of Service: Jul 13, 2020 Physician Name Joni Copeland Attending Physician Elayne Allred MD Current Medications Medications (Trade) Dose Ordered Sig/Katy Route PRN Reason Start Time Stop Time Status Last Admin Dose Admin Acetaminophen (Tylenol) 650 mg Q4H PRN GT For Pain 07/01/20 17:15 07/31/20 17:14 07/10/20 17:46 Chlorhexidine Gluconate (Alla-Hex 2%) 1 applic DAILY@1999 TOPIC 06/08/20 20:00 09/06/20 19:59 07/12/20 20:04 Clotrimazole (Lotrimin) 1 applic Q12HR TOPIC 06/07/20 13:00 09/05/20 12:59 07/13/20 08:41 Dextrose (Dextrose 50%) 25 ml Q30M PRN IV Hypoglycemia 06/03/20 11:30 08/28/20 11:29 Dextrose (Dextrose 50%) 50 ml Q30M PRN IV Hypoglycemia 06/03/20 11:30 08/28/20 11:29 Hydrocortisone (Solu-CORTEF) 50 mg EVERY 12 HOURS IV 07/10/20 21:00 10/04/20 20:59 07/13/20 08:41 Insulin Aspart (NovoLOG) Q6HR SUBQ 06/26/20 12:00 09/24/20 11:59 07/13/20 17:52 Insulin Detemir (Levemir) 10 units Q12HR SUBQ 06/26/20 10:00 09/24/20 09:59 07/13/20 08:47 Levothyroxine Sodium (Synthroid) 75 mcg DAILY@0630 GT 07/08/20 06:30 08/07/20 06:29 07/13/20 06:57 Loperamide HCl (Imodium) 2 mg Q6H PRN NG Diarrhea 06/24/20 10:30 07/24/20 10:29 07/01/20 11:41 Lorazepam (Ativan 2mg/ml 1ml) 2 mg Q4H PRN IV For Anxiety 07/13/20 00:45 07/20/20 00:44 07/13/20 03:06 Pantoprazole (Protonix) 40 mg EVERY 12 HOURS IVP 07/06/20 21:00 08/05/20 20:59 07/13/20 08:41 Potassium Chloride (K-Dur) 40 meq EVERY 12 HOURS GT 07/04/20 21:00 09/26/20 12:14 07/13/20 08:41 Sodium Chloride 1,000 ml @ 50 mls/hr Q20H IV 07/12/20 11:00 08/11/20 10:59 07/13/20 06:20 Allergies: Coded Allergies: No Known Allergies (Unverified , 10/16/18) ROS Limited/Unobtainable: Yes Subjective 59 YO F with Down's syndrome admitted with hypoxia. Now sepsis and pneumonia. Cover for Int Arturo-DR Hawk. ICU. Intubated and sedated Objective Last Vital Signs Date Time Temp Pulse Resp B/P (MAP) Pulse Ox O2 Delivery O2 Flow Rate FiO2 07/13/20 18:00 98.8 62 24 86/38 (54) 98 07/13/20 16:00 Mechanical Ventilator Mechanical Ventilator Mechanical Ventilator 07/13/20 15:20 75 Laboratory Tests Test 07/12/20 20:55 07/13/20 06:25 07/13/20 08:18 07/13/20 12:05 POC Whole Blood Glucose 165 MG/DL (74-106) H 143 MG/DL (74-106) H White Blood Count 12.3 K/UL (4.8-10.8) #H Red Blood Count 3.21 M/UL (4.20-5.40) L Hemoglobin 10.3 G/DL (12.0-16.0) L Hematocrit 31.0 % (37.0-47.0) L Mean Corpuscular Volume 97 FL (80-99) Mean Corpuscular Hemoglobin 32.0 PG (27.0-31.0) H Mean Corpuscular Hemoglobin Concent 33.1 G/DL (32.0-36.0) Red Cell Distribution Width 17.4 % (11.6-14.8) H Platelet Count 108 K/UL (150-450) L Mean Platelet Volume 7.8 FL (6.5-10.1) Neutrophils (%) (Auto) 77.4 % (45.0-75.0) H Lymphocytes (%) (Auto) 19.9 % (20.0-45.0) L Monocytes (%) (Auto) 1.9 % (1.0-10.0) Eosinophils (%) (Auto) 0.2 % (0.0-3.0) Basophils (%) (Auto) 0.6 % (0.0-2.0) Prothrombin Time 12.6 SEC (9.30-11.50) H Prothromb Time International Ratio 1.2 (0.9-1.1) H Activated Partial Thromboplast Time 24 SEC (23-33) Sodium Level 146 MMOL/L (136-145) H Potassium Level 3.7 MMOL/L (3.5-5.1) Chloride Level 113 MMOL/L (98-107) H Carbon Dioxide Level 28 MMOL/L (21-32) Anion Gap 5 mmol/L (5-15) Blood Urea Nitrogen 17 mg/dL (7-18) Creatinine 0.7 MG/DL (0.55-1.30) Estimat Glomerular Filtration Rate > 60 mL/min (>60) Glucose Level 174 MG/DL (74-106) H Calcium Level 7.7 MG/DL (8.5-10.1) L Phosphorus Level 1.8 MG/DL (2.5-4.9) L Magnesium Level 2.0 MG/DL (1.8-2.4) Total Bilirubin 0.6 MG/DL (0.2-1.0) Aspartate Amino Transf (AST/SGOT) 27 U/L (15-37) Alanine Aminotransferase (ALT/SGPT) 21 U/L (12-78) Alkaline Phosphatase 58 U/L (46-116) Total Protein 5.0 G/DL (6.4-8.2) L Albumin 1.4 G/DL (3.4-5.0) L Globulin 3.6 g/dL Albumin/Globulin Ratio 0.4 (1.0-2.7) L Arterial Blood pH 7.533 (7.350-7.450) Arterial Blood Partial Pressure CO2 33.5 mmHg (35.0-45.0) L Arterial Blood Partial Pressure O2 283.3 mmHg (75.0-100.0) H Arterial Blood HCO3 27.6 mmol/L (22.0-26.0) H Arterial Blood Oxygen Saturation 99.0 % (95-100) Arterial Blood Base Excess 4.9 (-2-2) H Jonathan Test Positive Test 10/5/20 13:30 07/13/20 17:48 Urine Color Pale yellow Urine Appearance Clear Urine pH 8 (4.5-8.0) Urine Specific [place] 1.010 (1.005-1.035) Urine Protein 1+ (NEGATIVE) H Urine Glucose (UA) Negative (NEGATIVE) Urine Ketones Negative (NEGATIVE) Urine Blood 2+ (NEGATIVE) H Urine Nitrite Negative (NEGATIVE) Urine Bilirubin Negative (NEGATIVE) Urine Urobilinogen 12 MG/DL (0.0-1.0) H Urine Leukocyte Esterase 2+ (NEGATIVE) H Urine RBC 5-10 /HPF (0 - 2) H Urine WBC 10-15 /HPF (0 - 2) H Urine Squamous Epithelial Cells Few /LPF (NONE/OCC) Urine Bacteria Moderate /HPF (NONE) H POC Whole Blood Glucose Pending Intake and Output 07/12/20 07/13/20 19:00 07:00 Intake Total 1410 ml 1073.3333 ml Output Total 635 ml 730 ml Balance 775 ml 343.3333 ml Free Water 100 ml 90 ml IV Total 650 ml 383.3333 ml Tube Feeding 600 ml 600 ml Other 60 ml Output Urine Total 635 ml 730 ml # Bowel Movements 1 3 Objective General Appearance: WD/WN, no apparent distress, alert EENT: PERRL/EOMI, normal ENT inspection Neck: non-tender, normal alignment, supple, normal inspection Cardiovascular: normal peripheral pulses, normal rate, regular rhythm, no gallop/murmur, no JVD Respiratory/Chest: Mech vent; decreased breath sounds, crackles/rales, rhonchi - bilaterally, expiratory wheezing Abdomen: normal bowel sounds, non tender, soft, no organomegaly, no mass Extremities: normal range of motion 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 S/P amikacin per ID=Dr Camejo. Pulmonary/Critical care=DR Allred. COVID NEG (2) Sepsis Assessment & Plan: Staph haemolyticus. S/P amikacin per ID=Dr Camejo (3) Down's syndrome (4) Dysphagia Assessment & Plan: S/P PEG (5) Seizure disorder Assessment & Plan: Continue keppra and depakote (6) Hypothyroidism Assessment & Plan: Continue synthroid (7) Acute respiratory failure Assessment & Plan: Pulmonary = Dr Allred; [facility] vent (8) Pneumothorax, right Assessment & Plan: Continue chest tube per pulmonary (9) Cardiac arrest Assessment & Plan: 06/03/20-see cardiology note=Joni Lord MD Jul 13, 2020 18:57
--- NOTE | 2020-07-13 19:10 | NUR ---
HAND-OFF: Report given to Gayathri Perez RN.Endorsed
--- NOTE | 2020-07-13 19:30 | NUR ---
NURSE NOTES: Received pt , orally intubated on Ac mode SR on the monitor, Bp stable afebrile.Thoravent left chest to cont, suction with moderate amt of pale yellow drainage, no air leak. Tolerated GT fdg. with acceptable residuals. HOB kept elevated. On aspiration precaution.Will continue to monitor.
[2020-07-13] MEDS: Dyna-Hex 2% Top Sol 2oz TOPIC SCH (20:21)
--- NOTE | 2020-07-13 21:30 | NUR ---
NURSE NOTES: Turned q 2hrs prn with good skin care done. Suctioned Tn frothy secretions lg in amt. HOB kept elevated. Watch for any resp distress.
[2020-07-14] VITALS (24 sets, daily range): BP systolic 87–128; BP diastolic 39–79
--- NOTE | 2020-07-14 | NUR ---
NURSE NOTES: Accucheck with coverage pls see emar.
--- NOTE | 2020-07-14 02:00 | NUR ---
NURSE NOTES: Bilateral soft wrist restraints were re order for safety to avoid pulling out therapeutic devices. Will continue to monitor.
--- NOTE | 2020-07-14 04:00 | NUR ---
NURSE NOTES: Complete bed bath with bed changed done.
--- NOTE | 2020-07-14 06:00 | NUR ---
NURSE NOTES: Accucheck with coverage. pls see emar
[2020-07-14] MEDS ORDERED: Rocuronium Bromide 50mg/5ml Inj IV ONE (06:17)
[2020-07-14] MEDS ORDERED: Etomidate 40mg/20ml Inj IV ONE (06:17)
[2020-07-14] MEDS: NovoLOG Insulin Flexpen SUBQ SCH ×3 (06:36→17:20)
[2020-07-14 06:46] LABS: HEMATOCRIT 24.8 % (37.0-47.0); HEMOGLOBIN 8.2 G/DL (12.0-16.0); MEAN CORPUSCULAR VOLUME 96 FL (80-99); PLATELET COUNT 89 K/UL (150-450); RED BLOOD COUNT 2.58 M/UL (4.20-5.40); RED CELL DISTRIBUTION WIDTH 18.1 % (11.6-14.8); WHITE BLOOD COUNT 9.6 K/UL (4.8-10.8)
[2020-07-14 07:00] LABS: ALANINE AMINOTRANSFERASE 18 U/L (12-78); ALBUMIN 1.1 G/DL (3.4-5.0); ALBUMIN/GLOBULIN RATIO 0.3 (1.0-2.7); ALKALINE PHOSPHATASE 51 U/L (46-116); ASPARTATE AMINO TRANSFERASE 20 U/L (15-37); BILIRUBIN,TOTAL 0.7 MG/DL (0.2-1.0); BLOOD UREA NITROGEN 20 mg/dL (7-18); CALCIUM 6.9 MG/DL (8.5-10.1); CARBON DIOXIDE 29 MMOL/L (21-32); CREATININE 0.6 MG/DL (0.55-1.30); PHOSPHORUS 1.5 MG/DL (2.5-4.9)
[2020-07-14 07:15] LABS: CHLORIDE 112 MMOL/L (98-107); POTASSIUM 3.7 MMOL/L (3.5-5.1); SODIUM 144 MMOL/L (136-145)
--- NOTE | 2020-07-14 07:30 | NUR ---
NURSE NOTES: Pt received from Marci Perez RN. Pt is asleep in bed, opens eyes spontaneously and makes eye contact when called by name but unable to follow simple commands. pupils are equal and round 3 mm bilaterally with sluggish rxn to light. Pt noted in SR to lifestyle coordinator. radial and dorsalis pedis pulses 2+. no edema noted. Pt is mechanically ventilated with a 7.5 ETT noted 23 cm at the lip line with following settings: AC 24 TV 500 FiO2 75% Peep 0. FiO2 titrated down to 65 % at this time. SpO2 97%. Right upper lung lobe noted with crackles; left upper lung lobe noted with rhonchi; bilat lower lobes diminished upon auscultation. Chest tube noted from anterior right upper chest (thoravent to pleurevac drainage/ to wall suction) - water level adjusted per order - no air leak present. serous drainage noted in collection chamber. Abd is round, soft, and non-tender with active bowel sounds to all quadrants. Pt has a GT clamped at this time for recent Synthroid administration. Will resume shortly. F/C noted draining yellow, clear urine. Skin alterations noted. Pt on CACHORRO mattress. Pt has a OJDY PICC with dry and intact dressing running 1/2 NS at 50 cc/hr. CQ DEVELOPER restraints noted; radial pulses palpable; skin to both wrists intact without redness. Bed in lowest position, alarm on, side rails up x 2 and padded per seizure precaution. Call light within reach. Will continue to monitor. Addendum: 07/14/20 at 0825 by Mary Britt RN Late entry: chest tube to low intermittent suction at this time per Dr Cardozo's order (change to intermittent suction once PNX resolves).
--- NOTE | 2020-07-14 08:00 | NUR ---
NURSE NOTES: Pt repositioned; oral care provided.
--- NOTE | 2020-07-14 08:45 | Pulmonolgy Critical Care Note ---
Critical Care - Asmt/Plan Problems: (1) Acute respiratory failure (2) Pneumothorax Assessment & Plan: resolved (3) Bacteremia (4) Pneumonia (5) Sepsis (6) HCAP (healthcare-associated pneumonia) (7) Seizure disorder (8) Down's syndrome (9) Trisomy 21, Down syndrome Respiratory: monitor respiratory rate, adjust FIO2, CXR Cardiac: continue to monitor HR/BP Renal: F/U I&O, keep IV fluid, check electrolytes Infectious Disease: check cultures, continue antibiotics Gastrointestinal: continue feedings/current rate Endocrine: monitor blood sugar, continue sliding scale insulin Hematologic: monitor H/H, transfuse if hgb<8.5 Neurologic: PRN Ativan, PRN Morphine, keep patient comfortable Affect: PRN ativan Prophylaxis: Protonix Disposition: keep in ICU 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, 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, 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 with: nurses, consultants, case brieferpreconstruction manager - Objective Last 24 Hour Vital Signs Date Time Temp Pulse Resp B/P (MAP) Pulse Ox O2 Delivery O2 Flow Rate FiO2 07/14/20 08:00 Mechanical Ventilator Mechanical Ventilator Mechanical Ventilator 07/14/20 08:00 65 07/14/20 07:00 71 30 87/56 (66) 96 07/14/20 06:00 63 36 93/39 (57) 96 07/14/20 05:00 69 36 108/63 (78) 94 07/14/20 04:00 75 07/14/20 04:00 69 07/14/20 04:00 98.4 64 24 99/47 (64) 95 07/14/20 04:00 Mechanical Ventilator Mechanical Ventilator Mechanical Ventilator 07/14/20 03:08 56 24 75 07/14/20 03:00 61 24 104/47 (66) 96 07/14/20 02:00 69 22 125/53 (77) 96 07/14/20 01:00 62 27 128/44 (72) 98 07/14/20 00:00 98.2 65 25 104/59 (74) 98 07/14/20 00:00 Mechanical Ventilator Mechanical Ventilator Mechanical Ventilator 07/14/20 00:00 75 07/14/20 00:00 65 07/13/20 23:19 62 24 75 07/13/20 23:00 61 25 88/44 (59) 99 07/13/20 22:00 64 25 100/37 (58) 97 07/13/20 21:19 69 27 112/39 (63) 99 07/13/20 21:00 64 24 84/41 (55) 98 07/13/20 20:00 64 07/13/20 20:00 75 07/13/20 20:00 98.0 66 25 97/58 (71) 97 07/13/20 20:00 Mechanical Ventilator Mechanical Ventilator Mechanical Ventilator 07/13/20 19:30 67 24 75 07/13/20 19:00 61 24 94/45 (61) 99 07/13/20 18:00 98.8 62 24 86/38 (54) 98 07/13/20 17:00 98.8 63 23 116/49 (71) 98 07/13/20 16:00 Mechanical Ventilator Mechanical Ventilator Mechanical Ventilator 07/13/20 16:00 98.8 64 27 112/40 (64) 97 07/13/20 16:00 64 07/13/20 15:20 64 24 75 07/13/20 15:00 63 26 101/53 (69) 99 07/13/20 14:00 63 30 90/47 (61) 98 07/13/20 13:50 75 07/13/20 13:00 59 34 95/42 (59) 100 07/13/20 12:00 61 07/13/20 12:00 98.8 61 24 106/45 (65) 98 07/13/20 12:00 85 07/13/20 12:00 Mechanical Ventilator Mechanical Ventilator Mechanical Ventilator 07/13/20 11:15 63 24 75 07/13/20 11:00 82 27 114/46 (68) 95 07/13/20 10:00 69 25 98/47 (64) 100 07/13/20 09:00 70 24 98/82 (87) 99 07/13/20 09:00 85 Status: awake Condition: critical HEENT: atraumatic, normocephalic Neck: full ROM Lungs: rales, rhonchi Heart: HR/BP stable Abdomen: soft, non-tender Extremities: no C/C/E Decubiti: location Accucheck: 160 Critical Care - Subjective ROS Limited/Unobtainable: Yes Condition: critical EKG Rhythm: Sinus Rhythm FI02: 65 Vent Support Breath Rate: 24 Vent Support Mode: AC Vent Tidal Volume: 500 Sputum Amount: Small PEEP: 0.0 PIP: 44 Tube Feeding Amount: 50 I&O: Intake and Output 07/13/20 07/14/20 19:00 07:00 Intake Total 980 ml 1290 ml Output Total 720 ml 920 ml Balance 260 ml 370 ml Free Water 30 ml 90 ml IV Total 400 ml 600 ml Tube Feeding 550 ml 600 ml Output Urine Total 670 ml 850 ml Chest Tube Drainage Total 50 ml 70 ml # Bowel Movements 1 CXR: Extensive bilateral airspace opacities, right greater than left, consistent with multifocal infiltrate worse pulmonary edema. This is similar in appearance to the prior study. Worsening, small left pleural effusion ET-Tube: 7.5 ET Position: 23 Labs: Laboratory Tests Test 07/13/20 12:05 07/13/20 13:30 07/13/20 17:48 07/13/20 21:21 POC Whole Blood Glucose 143 MG/DL (74-106) H Pending 147 MG/DL (74-106) H Urine Color Pale yellow Urine Appearance Clear Urine pH 8 (4.5-8.0) Urine Specific [place] 1.010 (1.005-1.035) Urine Protein 1+ (NEGATIVE) H Urine Glucose (UA) Negative (NEGATIVE) Urine Ketones Negative (NEGATIVE) Urine Blood 2+ (NEGATIVE) H Urine Nitrite Negative (NEGATIVE) Urine Bilirubin Negative (NEGATIVE) Urine Urobilinogen 12 MG/DL (0.0-1.0) H Urine Leukocyte Esterase 2+ (NEGATIVE) H Urine RBC 5-10 /HPF (0 - 2) H Urine WBC 10-15 /HPF (0 - 2) H Urine Squamous Epithelial Cells Few /LPF (NONE/OCC) Urine Bacteria Moderate /HPF (NONE) H Test 07/13/20 23:51 07/14/20 04:30 POC Whole Blood Glucose 151 MG/DL (74-106) H White Blood Count 9.6 K/UL (4.8-10.8) Red Blood Count 2.58 M/UL (4.20-5.40) L Hemoglobin 8.2 G/DL (12.0-16.0) L Hematocrit 24.8 % (37.0-47.0) L Mean Corpuscular Volume 96 FL (80-99) Mean Corpuscular Hemoglobin 31.9 PG (27.0-31.0) H Mean Corpuscular Hemoglobin Concent 33.2 G/DL (32.0-36.0) Red Cell Distribution Width 18.1 % (11.6-14.8) H Platelet Count 89 K/UL (150-450) L Mean Platelet Volume 8.7 FL (6.5-10.1) Neutrophils (%) (Auto) % (45.0-75.0) Lymphocytes (%) (Auto) % (20.0-45.0) Monocytes (%) (Auto) % (1.0-10.0) Eosinophils (%) (Auto) % (0.0-3.0) Basophils (%) (Auto) % (0.0-2.0) Neutrophils % (Manual) Pending Lymphocytes % (Manual) Pending Platelet Estimate Pending Platelet Morphology Pending Erythrocyte Sedimentation Rate Pending Sodium Level 144 MMOL/L (136-145) Potassium Level 3.7 MMOL/L (3.5-5.1) Chloride Level 112 MMOL/L (98-107) H Carbon Dioxide Level 29 MMOL/L (21-32) Blood Urea Nitrogen 20 mg/dL (7-18) H Creatinine 0.6 MG/DL (0.55-1.30) Estimat Glomerular Filtration Rate > 60 mL/min (>60) Glucose Level 164 MG/DL (74-106) H Calcium Level 6.9 MG/DL (8.5-10.1) L Phosphorus Level 1.5 MG/DL (2.5-4.9) L Magnesium Level 1.8 MG/DL (1.8-2.4) Total Bilirubin 0.7 MG/DL (0.2-1.0) Aspartate Amino Transf (AST/SGOT) 20 U/L (15-37) Alanine Aminotransferase (ALT/SGPT) 18 U/L (12-78) Alkaline Phosphatase 51 U/L (46-116) C-Reactive Protein, Quantitative 15.5 mg/dL (0.00-0.90) H Total Protein 4.3 G/DL (6.4-8.2) L Albumin 1.1 G/DL (3.4-5.0) L Globulin 3.2 g/dL Albumin/Globulin Ratio 0.3 (1.0-2.7) L Elayne Allred MD Jul 14, 2020 08:45
--- NOTE | 2020-07-14 08:45 | NUR ---
RD ASSESSMENT & RECOMMENDATIONS SEE CARE ACTIVITY FOR COMPLETE ASSESSMENT DAILY ESTIMATED NEEDS: Needs based on CRITICAL CARE, 50kg 22-28 kcals/kg 2473-0713 total kcals 1.25-2 g protein/kg 63-100 g total protein 25-30 mL/kg 5871-3734 total fluid mLs NUTRITION DIAGNOSIS: Swallowing difficulty r/t dysphagia as evidenced by pt w/ Downs Syndrome, PEG dep for all nutritional needs, now intubated, off pressor support pending trach placement. CURRENT TF:Vital AF 1.2 @ 50ml/hr x 22 hrs (On Synthroid QD)- held for procedure ENTERAL NUTRITION RECOMMENDATIONS: VITAL AF 1.2 @ 50ml/hr x 22 hrs to provide 1100ml, 1320 kcal, 83g prot, 892ml free wa ter * Maintain current TF: meets 100% est kcal/prot needs * Hold 1 hr before and after Synthroid med * HOB over 30 degrees/ water flush per MD ADDITIONAL RECOMMENDATIONS: 1) Ht of 61 inches per SN[facility]; recalibrate bed scale for accurate CBW 2) Add NISS: BGs now in the 200's, on Solucortef-> NOW ON NISS + LEVEMIR 3) Monitor hemodynamic stability: OFF PRESSOR SUPPORT 4) Wound healing: add Vit C 250mg QD + continue [place] BID 5) Monitor lytes, replete as needed (low phos) 6) Probiotics for diarrhea .
[2020-07-14] MEDS: Hydrocortisone 100mg Inj IV SCH ×2 (09:21→21:14)
[2020-07-14] MEDS: Pantoprazole Inj IVP SCH ×2 (09:21→21:14)
[2020-07-14] MEDS: Levemir Flexpen SUBQ SCH ×2 (09:45→21:28)
--- NOTE | 2020-07-14 10:00 | NUR ---
RADIOLOGY DEPT., CHEST X-RAY DONE.-P.DYE
--- NOTE | 2020-07-14 10:00 | NUR ---
NURSE NOTES: Pt repositioned. Seen by Dr Gordon.
--- NOTE | 2020-07-14 11:21 | Infectious Diseases Prog Note ---
Assessment/Plan ASSESSMENT: sp code blue 06/03 Septic Shock; SP Fever, recurrent- low grade -SP Leukocytosis; recurrent; SP -06/27 Bcx Neg -06/17 u/a no pyuria -06/16 Bcx Neg(Picc line) -06/14 Bcx Neg ucx Neg sp cx C. parapsilopsis -06/03 u/a no pyuria Pneumonia.- COVID 19 neg x3 Acute hypoxic resp failure on VM> NRB 15l 100%; hypoxic on ABG> now VDRF 06/03- Fio2 80% >100% 06/05> 60% 06/09 >80% 06/10 >95% 06/18 >90% 06/22 >60% 06/23 R tension Pneumothroax sp CT 06/29 07/13 CXR: Extensive bilateral airspace opacities, right greater than left, consistent with multifocal infiltrate worse pulmonary edema. This is similar in appearance to the prior study. Worsening, small left pleural effusion. This may be secondary to redistribution as the right-sided pleural effusion has mildly improved. -06/30 CXR: Interim complete reexpansion of right lung without evidence of residual pneumothorax. Bilateral diffuse and extensive infiltrates. Markedly improved chest wall subcutaneous emphysema -06/29 CXR: Interim reexpansion of previously demonstrated right pneumothorax, status post large bore chest tube placement. -06/22 CXR: Improved aeration of both lungs. -06/13 CXR:Small bilateral pleural effusions with minor edema. Stable edema with mild worsening in the degree of pleural effusion on the right. -06/09 sp cx Neg 06/08 CXR: Extensive bilateral interstitial and airspace disease appears similar to the prior exam. Moderate to large bilateral pleural effusions appear unchanged. 06/05 CXR: Increasing left upper lobe dense consolidation and likely increasing bilateral pleural fluid. Persistent diffuse dense consolidation elsewhere -06/03 sp cx normal resp marie -06/02 CXR: Increased atelectasis of the right lung, since prior exam of 3 days earlier. New or increased right pleural effusion. Increased left basilar consolidation and/or pleural fluid -COVID Rapid PCR neg 05/31, 05/31, 06/03 -05/30 spc x Group G strep -05/30 CXR: Reduced lung volumes. Patchy bilateral predominantly interstitial pulmonary opacities. Could be from edema and/or pneumonia. There is a broader differential. -legionella ag urine, blasto ab, Histo ab, HIV ab screen, FRANCIS, ANCA neg Persistent, high grade bacteremia- -05/30 Bcx 4/4 sets S. haemolyticus; 05/31 Bcx 3/4 S/ epi; 06/04 Bcx 1.4 S. warnerri; 06/06 Bcx Neg -2d echo: no vegetaions seen ua/ wbc 10-15, nit neg, leuk +1; ucx Neg LEANN; -supratherapeutic vanco levels -Seizure disorder. - Hypothyroidism. - Down syndrome. History of PEG tube placement. [place] resident PLAN: Monitor off abx unless febrile, increasing WBC and/or HD unstable 06/22 SP Meropenem #18, IV Amikacin #7 06/12/20 SP Daptomycin #11 06/10 SP MIcafungin #7, Linezolid #5 06/05 SP Azithromycin #7/7 06/03 SP Ceftriaxone #2 06/02 SP IV Vancomycin #4, Zosyn #4 05/30 SP Cefepime x1, Flagyl x1 - Monitor CBC, BMP. .f/u cx - COVID neg x3 - Monitor chest x-ray. - Monitor the patient's clinical course and labs. Based on those, we will do further recommendation. -f/u Fungitell, asp ag, flow cytometry -poor prognosis -f/u u/a, ucx, sp cx Thank you, Dr. Allred, for allowing me to participate in the care of this patient. I will follow the patient with you at this hospitalization. Discussed with RN Subjective Allergies: Coded Allergies: No Known Allergies (Unverified , 10/16/18) afebrile remains intubated; Fio2 65% mild leukocytosis resolved Objective Last 24 Hour Vital Signs Date Time Temp Pulse Resp B/P (MAP) Pulse Ox O2 Delivery O2 Flow Rate FiO2 07/14/20 11:00 64 22 114/48 (70) 98 07/14/20 11:00 62 24 65 07/14/20 10:00 64 27 101/50 (67) 97 07/14/20 09:00 66 18 112/47 (68) 89 07/14/20 08:00 Mechanical Ventilator Mechanical Ventilator Mechanical Ventilator 07/14/20 08:00 98.2 66 29 101/47 (65) 96 07/14/20 08:00 65 07/14/20 08:00 64 07/14/20 07:00 71 30 90/56 (67) 96 07/14/20 06:00 63 36 93/39 (57) 96 07/14/20 05:00 69 36 108/63 (78) 94 07/14/20 04:00 75 07/14/20 04:00 69 07/14/20 04:00 98.4 64 24 99/47 (64) 95 07/14/20 04:00 Mechanical Ventilator Mechanical Ventilator Mechanical Ventilator 07/14/20 03:08 56 24 75 07/14/20 03:00 61 24 104/47 (66) 96 07/14/20 02:00 69 22 125/53 (77) 96 07/14/20 01:00 62 27 128/44 (72) 98 07/14/20 00:00 98.2 65 25 104/59 (74) 98 07/14/20 00:00 Mechanical Ventilator Mechanical Ventilator Mechanical Ventilator 07/14/20 00:00 75 07/14/20 00:00 65 07/13/20 23:19 62 24 75 07/13/20 23:00 61 25 88/44 (59) 99 07/13/20 22:00 64 25 100/37 (58) 97 07/13/20 21:19 69 27 112/39 (63) 99 07/13/20 21:00 64 24 84/41 (55) 98 07/13/20 20:00 64 07/13/20 20:00 75 07/13/20 20:00 98.0 66 25 97/58 (71) 97 07/13/20 20:00 Mechanical Ventilator Mechanical Ventilator Mechanical Ventilator 07/13/20 19:30 67 24 75 07/13/20 19:00 61 24 94/45 (61) 99 07/13/20 18:00 98.8 62 24 86/38 (54) 98 07/13/20 17:00 98.8 63 23 116/49 (71) 98 07/13/20 16:00 Mechanical Ventilator Mechanical Ventilator Mechanical Ventilator 07/13/20 16:00 98.8 64 27 112/40 (64) 97 07/13/20 16:00 64 07/13/20 15:20 64 24 75 07/13/20 15:00 63 26 101/53 (69) 99 07/13/20 14:00 63 30 90/47 (61) 98 07/13/20 13:50 75 07/13/20 13:00 59 34 95/42 (59) 100 07/13/20 12:00 61 07/13/20 12:00 98.8 61 24 106/45 (65) 98 07/13/20 12:00 85 07/13/20 12:00 Mechanical Ventilator Mechanical Ventilator Mechanical Ventilator Height (Feet): 5 Height (Inches): 3.00 Weight (Pounds): 172 HEENT: . ETT in place NECK: No lymphadenopathy. CHEST: Coarse breathing sounds. HEART: S1 and S2. ABDOMEN: Soft. PEG tube in place. SKIN: no rash Laboratory Tests Test 07/13/20 12:05 07/13/20 13:30 07/13/20 17:48 07/13/20 21:21 POC Whole Blood Glucose 143 MG/DL (74-106) H Pending 147 MG/DL (74-106) H Urine Color Pale yellow Urine Appearance Clear Urine pH 8 (4.5-8.0) Urine Specific [place] 1.010 (1.005-1.035) Urine Protein 1+ (NEGATIVE) H Urine Glucose (UA) Negative (NEGATIVE) Urine Ketones Negative (NEGATIVE) Urine Blood 2+ (NEGATIVE) H Urine Nitrite Negative (NEGATIVE) Urine Bilirubin Negative (NEGATIVE) Urine Urobilinogen 12 MG/DL (0.0-1.0) H Urine Leukocyte Esterase 2+ (NEGATIVE) H Urine RBC 5-10 /HPF (0 - 2) H Urine WBC 10-15 /HPF (0 - 2) H Urine Squamous Epithelial Cells Few /LPF (NONE/OCC) Urine Bacteria Moderate /HPF (NONE) H Test 07/13/20 23:51 07/14/20 04:30 POC Whole Blood Glucose 151 MG/DL (74-106) H White Blood Count 9.6 K/UL (4.8-10.8) Red Blood Count 2.58 M/UL (4.20-5.40) L Hemoglobin 8.2 G/DL (12.0-16.0) L Hematocrit 24.8 % (37.0-47.0) L Mean Corpuscular Volume 96 FL (80-99) Mean Corpuscular Hemoglobin 31.9 PG (27.0-31.0) H Mean Corpuscular Hemoglobin Concent 33.2 G/DL (32.0-36.0) Red Cell Distribution Width 18.1 % (11.6-14.8) H Platelet Count 89 K/UL (150-450) L Mean Platelet Volume 8.7 FL (6.5-10.1) Neutrophils (%) (Auto) % (45.0-75.0) Lymphocytes (%) (Auto) % (20.0-45.0) Monocytes (%) (Auto) % (1.0-10.0) Eosinophils (%) (Auto) % (0.0-3.0) Basophils (%) (Auto) % (0.0-2.0) Differential Total Cells Counted 100 Neutrophils % (Manual) 80 % (45-75) H Lymphocytes % (Manual) 14 % (20-45) L Monocytes % (Manual) 4 % (1-10) Eosinophils % (Manual) 1 % (0-3) Basophils % (Manual) 0 % (0-2) Band Neutrophils 1 % (0-8) Platelet Estimate Decreased L Platelet Morphology Normal Hypochromasia 1+ Anisocytosis 2+ Erythrocyte Sedimentation Rate 52 MM/HR (0-30) H Sodium Level 144 MMOL/L (136-145) Potassium Level 3.7 MMOL/L (3.5-5.1) Chloride Level 112 MMOL/L (98-107) H Carbon Dioxide Level 29 MMOL/L (21-32) Blood Urea Nitrogen 20 mg/dL (7-18) H Creatinine 0.6 MG/DL (0.55-1.30) Estimat Glomerular Filtration Rate > 60 mL/min (>60) Glucose Level 164 MG/DL (74-106) H Calcium Level 6.9 MG/DL (8.5-10.1) L Phosphorus Level 1.5 MG/DL (2.5-4.9) L Magnesium Level 1.8 MG/DL (1.8-2.4) Total Bilirubin 0.7 MG/DL (0.2-1.0) Aspartate Amino Transf (AST/SGOT) 20 U/L (15-37) Alanine Aminotransferase (ALT/SGPT) 18 U/L (12-78) Alkaline Phosphatase 51 U/L (46-116) C-Reactive Protein, Quantitative 15.5 mg/dL (0.00-0.90) H Total Protein 4.3 G/DL (6.4-8.2) L Albumin 1.1 G/DL (3.4-5.0) L Globulin 3.2 g/dL Albumin/Globulin Ratio 0.3 (1.0-2.7) L Current Medications Medications (Trade) Dose Ordered Sig/Katy Route PRN Reason Start Time Stop Time Status Last Admin Dose Admin Acetaminophen (Tylenol) 650 mg Q4H PRN GT For Pain 07/01/20 17:15 07/31/20 17:14 07/10/20 17:46 Chlorhexidine Gluconate (Alla-Hex 2%) 1 applic DAILY@1999 TOPIC 06/08/20 20:00 09/06/20 19:59 07/13/20 20:21 Clotrimazole (Lotrimin) 1 applic Q12HR TOPIC 06/07/20 13:00 09/05/20 12:59 07/14/20 09:22 Dextrose (Dextrose 50%) 25 ml Q30M PRN IV Hypoglycemia 06/03/20 11:30 08/28/20 11:29 Dextrose (Dextrose 50%) 50 ml Q30M PRN IV Hypoglycemia 06/03/20 11:30 08/28/20 11:29 Hydrocortisone (Solu-CORTEF) 50 mg EVERY 12 HOURS IV 07/10/20 21:00 10/04/20 20:59 07/14/20 09:21 Insulin Aspart (NovoLOG) Q6HR SUBQ 06/26/20 12:00 09/24/20 11:59 07/14/20 06:36 Insulin Detemir (Levemir) 10 units Q12HR SUBQ 06/26/20 10:00 09/24/20 09:59 07/14/20 09:45 Levothyroxine Sodium (Synthroid) 75 mcg DAILY@06 GT 07/08/20 06:30 08/07/20 06:29 07/14/20 06:35 Loperamide HCl (Imodium) 2 mg Q6H PRN NG Diarrhea 06/24/20 10:30 07/24/20 10:29 07/01/20 11:41 Lorazepam (Ativan 2mg/ml 1ml) 2 mg Q4H PRN IV For Anxiety 07/13/20 00:45 07/20/20 00:44 07/13/20 03:06 Pantoprazole (Protonix) 40 mg EVERY 12 HOURS IVP 07/06/20 21:00 08/05/20 20:59 07/14/20 09:21 Potassium Chloride (K-Dur) 40 meq EVERY 12 HOURS GT 07/04/20 21:00 09/26/20 12:14 07/14/20 09:21 Sodium Chloride 1,000 ml @ 50 mls/hr Q20H IV 07/12/20 11:00 08/11/20 10:59 07/14/20 01:27 Suki Camejo M.D. Jul 14, 2020 11:21
--- NOTE | 2020-07-14 12:00 | NUR ---
NURSE NOTES: Pt repositioned; oral care provided; afebrile; no distress noted. Seen by Dr Pitt; labs reviewed.
--- NOTE | 2020-07-14 12:46 | General Progress Note ---
Subjective ROS Limited/Unobtainable: No Allergies: Coded Allergies: No Known Allergies (Unverified , 10/16/18) Objective Last 24 Hour Vital Signs Date Time Temp Pulse Resp B/P (MAP) Pulse Ox O2 Delivery O2 Flow Rate FiO2 07/14/20 11:00 64 22 114/48 (70) 98 07/14/20 11:00 62 24 65 07/14/20 10:00 64 27 101/50 (67) 97 07/14/20 09:00 66 18 112/47 (68) 89 07/14/20 08:00 Mechanical Ventilator Mechanical Ventilator Mechanical Ventilator 07/14/20 08:00 98.2 66 29 101/47 (65) 96 07/14/20 08:00 65 07/14/20 08:00 64 07/14/20 07:00 71 30 90/56 (67) 96 07/14/20 06:00 63 36 93/39 (57) 96 07/14/20 05:00 69 36 108/63 (78) 94 07/14/20 04:00 75 07/14/20 04:00 69 07/14/20 04:00 98.4 64 24 99/47 (64) 95 07/14/20 04:00 Mechanical Ventilator Mechanical Ventilator Mechanical Ventilator 07/14/20 03:08 56 24 75 07/14/20 03:00 61 24 104/47 (66) 96 07/14/20 02:00 69 22 125/53 (77) 96 07/14/20 01:00 62 27 128/44 (72) 98 07/14/20 00:00 98.2 65 25 104/59 (74) 98 07/14/20 00:00 Mechanical Ventilator Mechanical Ventilator Mechanical Ventilator 07/14/20 00:00 75 07/14/20 00:00 65 07/13/20 23:19 62 24 75 07/13/20 23:00 61 25 88/44 (59) 99 07/13/20 22:00 64 25 100/37 (58) 97 07/13/20 21:19 69 27 112/39 (63) 99 07/13/20 21:00 64 24 84/41 (55) 98 07/13/20 20:00 64 07/13/20 20:00 75 07/13/20 20:00 98.0 66 25 97/58 (71) 97 07/13/20 20:00 Mechanical Ventilator Mechanical Ventilator Mechanical Ventilator 07/13/20 19:30 67 24 75 07/13/20 19:00 61 24 94/45 (61) 99 07/13/20 18:00 98.8 62 24 86/38 (54) 98 07/13/20 17:00 98.8 63 23 116/49 (71) 98 07/13/20 16:00 Mechanical Ventilator Mechanical Ventilator Mechanical Ventilator 07/13/20 16:00 98.8 64 27 112/40 (64) 97 07/13/20 16:00 64 07/13/20 15:20 64 24 75 07/13/20 15:00 63 26 101/53 (69) 99 07/13/20 14:00 63 30 90/47 (61) 98 07/13/20 13:50 75 07/13/20 13:00 59 34 95/42 (59) 100 Intake and Output 07/13/20 07/14/20 19:00 07:00 Intake Total 980 ml 1290 ml Output Total 720 ml 920 ml Balance 260 ml 370 ml Free Water 30 ml 90 ml IV Total 400 ml 600 ml Tube Feeding 550 ml 600 ml Output Urine Total 670 ml 850 ml Chest Tube Drainage Total 50 ml 70 ml # Bowel Movements 1 Laboratory Tests 07/13/20 13:30: Urine Color Pale yellow, Urine Appearance Clear, Urine pH 8, Urine Specific [place] 1.010, Urine Protein 1+H, Urine Glucose (UA) Negative, Urine Ketones Negative, Urine Blood 2+H, Urine Nitrite Negative, Urine Bilirubin Negative, Urine Urobilinogen 12H, Urine Leukocyte Esterase 2+H, Urine RBC 5-10H, Urine WBC 10-15H, Urine Squamous Epithelial Cells Few, Urine Bacteria ModerateH 07/13/20 17:48: POC Whole Blood Glucose [Pending] 07/13/20 21:21: POC Whole Blood Glucose 147H 07/13/20 23:51: POC Whole Blood Glucose 151H 07/14/20 04:30: White Blood Count 9.6, Red Blood Count 2.58L, Hemoglobin 8.2L, Hematocrit 24.8L, Mean Corpuscular Volume 96, Mean Corpuscular Hemoglobin 31.9H, Mean Corpuscular Hemoglobin Concent 33.2, Red Cell Distribution Width 18.1H, Platelet Count 89L, Mean Platelet Volume 8.7, Neutrophils (%) (Auto) , Lymphocytes (%) (Auto) , Monocytes (%) (Auto) , Eosinophils (%) (Auto) , Basophils (%) (Auto) , Differential Total Cells Counted 100, Neutrophils % (Manual) 80H, Lymphocytes % (Manual) 14L, Monocytes % (Manual) 4, Eosinophils % (Manual) 1, Basophils % (Manual) 0, Band Neutrophils 1, Platelet Estimate DecreasedL, Platelet Morphology Normal, Hypochromasia 1+, Anisocytosis 2+, Erythrocyte Sedimentation Rate 52H, Sodium Level 144, Potassium Level 3.7, Chloride Level 112H, Carbon Dioxide Level 29, Blood Urea Nitrogen 20H, Creatinine 0.6, Estimat Glomerular Filtration Rate > 60, Glucose Level 164H, Calcium Level 6.9L, Phosphorus Level 1.5L, Magnesium Level 1.8, Total Bilirubin 0.7, Aspartate Amino Transf (AST/SGOT) 20, Alanine Aminotransferase (ALT/SGPT) 18, Alkaline Phosphatase 51, C-Reactive Protein, Quantitative 15.5H, Total Protein 4.3L, Albumin 1.1L, Globulin 3.2, Albumin/Globulin Ratio 0.3L 07/14/20 12:13: POC Whole Blood Glucose 128H Height (Feet): 5 Height (Inches): 3.00 Weight (Pounds): 172 General Appearance: no apparent distress EENT: normal ENT inspection Neck: supple Cardiovascular: normal rate Respiratory/Chest: decreased breath sounds Abdomen: hypoactive bowel sounds Extremities: non-tender Assessment/Plan Status: stable, not improved, unchanged Assessment/Plan: 1. History of Down syndrome. 2. Dysphagia with G-tube. 3. Seizure disorder. 4. Hypothyroidism. 5. LEANN. 6. Pneumonia. 7. Sepsis. fu H&H prn blood transfusion to keep HGB above 7 ppi GTF hold GI procedures for now pending possible Trach Nehemiah Perez MD Jul 14, 2020 12:46
--- NOTE | 2020-07-14 12:58 | Nephrology Progress Note ---
Assessment/Plan Problem List: (1) LEANN (acute kidney injury) (2) Respiratory failure requiring intubation (3) Down's syndrome (4) Seizure disorder (5) Hypothyroidism Assessment Acute renal failure, likely due to hypotension Acute respiratory distress, hypoxia Seizure disorder Hypothyroidism Down syndrome Full code Fluid challenge with IV fluids and albumin Midodrine for BP above 100 systolic Check TSH level Check Correct level Monitor renal parameters Urine studies Per orders Plan July 14: On ventilator. Tracheostomy postponed because patient is clinically unstable. Still have left chest tube draining. Labs reviewed. Electrolyte abnormalities addressed. Continue per consultants. July 13: Remains intubated on ventilator. Discussed with RN. Unclear if the patient is due for tracheostomy today or not. Apparently the patient was reintubated again yesterday. Patient has left chest tube. Electrolyte abnormalities addressed. July 12: Remains intubated on ventilator. Due for tracheostomy tomorrow. Left chest tube present. Patient is full code. Labs reviewed. Continue as is. July 11: Remains intubated on ventilator. Due for tracheostomy July 13. Has left-sided chest tube. Stable from renal standpoint to view. Continue per consultants. July 10: Remains intubated on ventilator. Electrolyte abnormalities addressed. Supplements ordered. July 09: Intubated on ventilator. Labs reviewed. Potassium supplement given. Remains bradycardic. Continue per consultants. July 08: Labs reviewed. Electrolyte abnormalities addressed. Heart rate remains bradycardic. Continue per cardiology. Continue to monitor renal parameters and electrolytes. July 07: Labs reviewed. Electrolyte abnormalities addressed and replaced. Medication list reviewed. Heart rate remains mid 50s. Continue as is. July 06: On ventilator. Full code. Heart rate low. Will discontinue Midodrin. Continue to rest. Electrolytes within normal limit. Discussed with RN. July 05: Remains intubated. Full code. No plan for tracheostomy yet. Labs reviewed. All acceptable. Continue same management July 04: Labs reviewed. Discussed with RN. Potassium and phosphorus and magnesium replacement ordered. Hemoglobin 9.5. Patient remains full code. Continue per consultants. July 03: Lab reviewed. Renal parameters stable. Full code. Intubated. Electrolyte abnormalities addressed and replacement done. July 02: Lab reviewed. Renal parameters stable. Full code. Intubated. Has right side chest tube. Continue per consultants. July 01: Lab reviewed. Renal parameters stable. Full code. Has right chest tube. Planning process for tracheostomy. Defer to chest and general surgeon. June 30: Labs reviewed. Renal parameters stable. Remains full code. Remains on ventilator. Due for tracheostomy tomorrow. Continue per consultants. Patient has a right chest tube in place at this time. June 29: Labs reviewed. Electrolyte imbalances addressed and supplemented. Remains full code and on ventilator. Continue to monitor renal parameters. Continue per consultants. June 28: Labs reviewed. Serum potassium again low today. Potassium supplement IV and through GT given. Patient remains full code and is on ventilator. Continue per consultants. Continue to monitor electrolytes and renal parameters. June 27: Labs reviewed. Abnormal electrolyte addressed. Remains full code. Remains vented. June 26: Day 27 of hospitalization. Full code. Labs reviewed. Hemoglobin down to 7.5. Electrolyte abnormalities addressed and corrections ordered. Continue to monitor renal parameters. Continue per consultants. Start on Levemir for blood sugar management. Questioning continuation of hydrocortisone? June 25: Labs reviewed. Potassium, phosphorus, hemoglobin, are all low. Potassium and phosphorus IV replacement given. Continue to monitor electrolytes and CBC. Patient remains full code. June 24: Lab reviewed. Low phosphorus low magnesium and low potassium was addressed. Hemoglobin drifting lower. Continue per consultants. Patient remains full code. June 23: Labs reviewed. Patient continues to be on ventilator. D5W for high sodium and also potassium chloride intravenously as supplement given. Hemoglobin 8.4. Continue to monitor electrolytes and renal parameters. June 22: Labs reviewed. Low potassium and high sodium noted. Hemoglobin 8.1 stable. Aim to correct abnormal electrolyte. Continue rest. Will give 2 boluses of D5W 500 cc. June 21: Lab reviewed. Abnormal electrolytes noted and addressed. June 20: Labs reviewed. Potassium supplement given. Patient remains full code. Continue per consultants. June 19: Lab reviewed. Electrolyte abnormalities addressed. Continue per pulmonary and ID. June 18: Lab reviewed. Status unchanged. Serum sodium 151 unchanged. Stable from renal standpoint of view. June 17: Labs reviewed. Status quo. D5W 500 cc IV ordered. Continue to monitor renal parameters. June 16: Status quo. Labs reviewed. Overall condition unchanged. Patient was transfused and hemoglobin higher. Continue current management. Patient remains full code. June 15: Status quo. Overall condition poor. Very low albumin. Edematous. Hypotensive. Hemoglobin lower. Anemia work-up ordered. I favor transfusion 2 units of packed RBCs. Patient remains full code. I favor supportive care only. Will discuss. June 14: Electrolyte abnormalities addressed. Serum creatinine lower. Continue per current management. June 13: Status unchanged. Lab reviewed. Serum potassium 2.7. IV potassium chloride ordered. Serum creatinine low at 1.6 stable. Blood pressure 90s systolic June 12: Status quo. Labs reviewed. Renal parameters stable. Serum creatinine down to 1.6. Medication list reviewed. Continues to be on midodrine. Continue per consultants. June 11: Status quo. Labs reviewed. Electrolytes adjusted. Serum creatinine down to 1.8. Continue per consultants. June 10: Status quo. Labs reviewed. Phosphorus supplement IV given. Serum creatinine 2. Continue per consultants. June 09: Requires less pressors. Albumin bolus given. 1 dose of Lasix IV ordered as the patient severely edematous. Patient serum albumin is very low. Continue per consultants. June 08: Continues to be intubated. Labs reviewed. Serum creatinine 1.9 unchanged. Blood pressure more stable. Off 1 of the pressors. Continue to monitor renal parameters. Continue per consultants. Patient now on hydrocortisone 100 mg every 8 hours. Will decrease IV fluid. Normal saline down to 50 cc an hour. June 07: Intubated. Labs reviewed. Creatinine 1.9 unchanged. Continue same treatment plan. Per consultants. Overall poor prognosis since the patient remains on pressors and her pulmonary status is worsening. June 06: Remains intubated. Labs reviewed. Creatinine 1.9. Blood pressure systolic 90s. Continue per consultants. June 05: Remains intubated. Labs reviewed. Serum creatinine lower to 2. Vancomycin level lower. Remains hypotensive on pressors. Will increase m idodrine to 10 mg every 8 hours. Continue per consultants. Continue to monitor renal parameters. June 04: Patient now in ICU. Intubated. On pressors. Labs reviewed. Will increase midodrine. Aim to keep blood pressure over 100 systolic. Will give albumin bolus. Will check vancomycin level which was elevated when checked previously on June 01. Will monitor renal parameters. Continue per consultants. Subjective ROS Limited/Unobtainable: Yes Objective Objective Last 24 Hour Vital Signs Date Time Temp Pulse Resp B/P (MAP) Pulse Ox O2 Delivery O2 Flow Rate FiO2 10/6/20 11:00 64 22 114/48 (70) 98 07/14/20 11:00 62 24 65 07/14/20 10:00 64 27 101/50 (67) 97 07/14/20 09:00 66 18 112/47 (68) 89 07/14/20 08:00 Mechanical Ventilator Mechanical Ventilator Mechanical Ventilator 07/14/20 08:00 98.2 66 29 101/47 (65) 96 07/14/20 08:00 65 07/14/20 08:00 64 07/14/20 07:00 71 30 90/56 (67) 96 07/14/20 06:00 63 36 93/39 (57) 96 07/14/20 05:00 69 36 108/63 (78) 94 07/14/20 04:00 75 07/14/20 04:00 69 07/14/20 04:00 98.4 64 24 99/47 (64) 95 07/14/20 04:00 Mechanical Ventilator Mechanical Ventilator Mechanical Ventilator 07/14/20 03:08 56 24 75 07/14/20 03:00 61 24 104/47 (66) 96 07/14/20 02:00 69 22 125/53 (77) 96 07/14/20 01:00 62 27 128/44 (72) 98 07/14/20 00:00 98.2 65 25 104/59 (74) 98 07/14/20 00:00 Mechanical Ventilator Mechanical Ventilator Mechanical Ventilator 07/14/20 00:00 75 07/14/20 00:00 65 07/13/20 23:19 62 24 75 07/13/20 23:00 61 25 88/44 (59) 99 07/13/20 22:00 64 25 100/37 (58) 97 07/13/20 21:19 69 27 112/39 (63) 99 07/13/20 21:00 64 24 84/41 (55) 98 07/13/20 20:00 64 07/13/20 20:00 75 07/13/20 20:00 98.0 66 25 97/58 (71) 97 07/13/20 20:00 Mechanical Ventilator Mechanical Ventilator Mechanical Ventilator 07/13/20 19:30 67 24 75 07/13/20 19:00 61 24 94/45 (61) 99 07/13/20 18:00 98.8 62 24 86/38 (54) 98 07/13/20 17:00 98.8 63 23 116/49 (71) 98 07/13/20 16:00 Mechanical Ventilator Mechanical Ventilator Mechanical Ventilator 07/13/20 16:00 98.8 64 27 112/40 (64) 97 07/13/20 16:00 64 07/13/20 15:20 64 24 75 07/13/20 15:00 63 26 101/53 (69) 99 07/13/20 14:00 63 30 90/47 (61) 98 07/13/20 13:50 75 07/13/20 13:00 59 34 95/42 (59) 100 Intake and Output 07/13/20 07/14/20 19:00 07:00 Intake Total 980 ml 1290 ml Output Total 720 ml 920 ml Balance 260 ml 370 ml Free Water 30 ml 90 ml IV Total 400 ml 600 ml Tube Feeding 550 ml 600 ml Output Urine Total 670 ml 850 ml Chest Tube Drainage Total 50 ml 70 ml # Bowel Movements 1 Laboratory Tests 07/13/20 13:30: Urine Color Pale yellow, Urine Appearance Clear, Urine pH 8, Urine Specific Jay 1.010, Urine Protein 1+H, Urine Glucose (UA) Negative, Urine Ketones Negative, Urine Blood 2+H, Urine Nitrite Negative, Urine Bilirubin Negative, Urine Urobilinogen 12H, Urine Leukocyte Esterase 2+H, Urine RBC 5-10H, Urine WBC 10-15H, Urine Squamous Epithelial Cells Few, Urine Bacteria ModerateH 07/13/20 17:48: POC Whole Blood Glucose [Pending] 07/13/20 21:21: POC Whole Blood Glucose 147H 07/13/20 23:51: POC Whole Blood Glucose 151H 07/14/20 04:30: White Blood Count 9.6, Red Blood Count 2.58L, Hemoglobin 8.2L, Hematocrit 24.8L, Mean Corpuscular Volume 96, Mean Corpuscular Hemoglobin 31.9H, Mean Corpuscular Hemoglobin Concent 33.2, Red Cell Distribution Width 18.1H, Platelet Count 89L, Mean Platelet Volume 8.7, Neutrophils (%) (Auto) , Lymphocytes (%) (Auto) , Monocytes (%) (Auto) , Eosinophils (%) (Auto) , Basophils (%) (Auto) , Differential Total Cells Counted 100, Neutrophils % (Manual) 80H, Lymphocytes % (Manual) 14L, Monocytes % (Manual) 4, Eosinophils % (Manual) 1, Basophils % (Manual) 0, Band Neutrophils 1, Platelet Estimate DecreasedL, Platelet Morphology Normal, Hypochromasia 1+, Anisocytosis 2+, Erythrocyte Sedimentation Rate 52H, Sodium Level 144, Potassium Level 3.7, Chloride Level 112H, Carbon Dioxide Level 29, Blood Urea Nitrogen 20H, Creatinine 0.6, Estimat Glomerular Filtration Rate > 60, Glucose Level 164H, Calcium Level 6.9L, Phosphorus Level 1.5L, Magnesium Level 1.8, Total Bilirubin 0.7, Aspartate Amino Transf (AST/SGOT) 20, Alanine Aminotransferase (ALT/SGPT) 18, Alkaline Phosphatase 51, C-Reactive Protein, Quantitative 15.5H, Total Protein 4.3L, Albumin 1.1L, Globulin 3.2, Albumin/Globulin Ratio 0.3L 07/14/20 12:13: POC Whole Blood Glucose 128H Height (Feet): 5 Height (Inches): 3.00 Weight (Pounds): 172 General Appearance: no apparent distress EENT: other - Intubated on ventilator Cardiovascular: normal rate Respiratory/Chest: decreased breath sounds, other - Left-sided chest tube Keron Pitt MD Jul 14, 2020 12:58
--- NOTE | 2020-07-14 13:35 | NUR ---
THRESHING OPERATOR NOTE DWAYNE spoke w/ [facility] [phone] that pt will remain full code as bioethics committee recommended pt remaining full code. Renée reports her team already provided consent for tracheostomy.
--- NOTE | 2020-07-14 13:41 | Diagnostic Imaging Report ---
Indication: Dyspnea Technique: One view of the chest Comparison: 07/13/2020 Findings: Endotracheal tube projects just above the joseph. Left chest vent catheter is again demonstrated in good position. There is no pneumothorax. Stable satisfactory position left arm PICC. Bilateral extensive infiltrates are unchanged. Impression: Unchanged, over one day, findings as above.
[2020-07-14] MEDS ORDERED: Potassium Phosphate 20 MM in NS 275 ML IV ONE (14:00)
--- NOTE | 2020-07-14 14:00 | NUR ---
NURSE NOTES: Pt repositioned. No acute distress noted. Addendum: 07/14/20 at 1710 by Mary Britt RN Late entry: pt seen by Dr Camejo at this time
--- NOTE | 2020-07-14 14:37 | Surgery Progress Note ---
Surgery Progress Note Subjective Additional Comments pleuravac troubleshooting with RN recommend change to new vac not ready for trach Objective Last 24 Hour Vital Signs Date Time Temp Pulse Resp B/P (MAP) Pulse Ox O2 Delivery O2 Flow Rate FiO2 07/14/20 14:00 61 24 120/63 (82) 97 07/14/20 13:00 63 23 117/57 (77) 98 07/14/20 12:00 65 07/14/20 12:00 64 07/14/20 12:00 98.5 65 20 119/50 (73) 96 07/14/20 12:00 Mechanical Ventilator Mechanical Ventilator Mechanical Ventilator 07/14/20 11:00 64 22 114/48 (70) 98 07/14/20 11:00 62 24 65 07/14/20 10:00 64 27 101/50 (67) 97 07/14/20 09:00 66 18 112/47 (68) 89 07/14/20 08:00 Mechanical Ventilator Mechanical Ventilator Mechanical Ventilator 07/14/20 08:00 98.2 66 29 101/47 (65) 96 07/14/20 08:00 65 07/14/20 08:00 64 07/14/20 07:00 71 30 90/56 (67) 96 07/14/20 06:00 63 36 93/39 (57) 96 07/14/20 05:00 69 36 108/63 (78) 94 07/14/20 04:00 75 07/14/20 04:00 69 07/14/20 04:00 98.4 64 24 99/47 (64) 95 07/14/20 04:00 Mechanical Ventilator Mechanical Ventilator Mechanical Ventilator 07/14/20 03:08 56 24 75 07/14/20 03:00 61 24 104/47 (66) 96 07/14/20 02:00 69 22 125/53 (77) 96 07/14/20 01:00 62 27 128/44 (72) 98 07/14/20 00:00 98.2 65 25 104/59 (74) 98 07/14/20 00:00 Mechanical Ventilator Mechanical Ventilator Mechanical Ventilator 07/14/20 00:00 75 07/14/20 00:00 65 07/13/20 23:19 62 24 75 07/13/20 23:00 61 25 88/44 (59) 99 07/13/20 22:00 64 25 100/37 (58) 97 07/13/20 21:19 69 27 112/39 (63) 99 07/13/20 21:00 64 24 84/41 (55) 98 07/13/20 20:00 64 07/13/20 20:00 75 07/13/20 20:00 98.0 66 25 97/58 (71) 97 07/13/20 20:00 Mechanical Ventilator Mechanical Ventilator Mechanical Ventilator 07/13/20 19:30 67 24 75 07/13/20 19:00 61 24 94/45 (61) 99 07/13/20 18:00 98.8 62 24 86/38 (54) 98 07/13/20 17:00 98.8 63 23 116/49 (71) 98 07/13/20 16:00 Mechanical Ventilator Mechanical Ventilator Mechanical Ventilator 07/13/20 16:00 98.8 64 27 112/40 (64) 97 07/13/20 16:00 64 07/13/20 15:20 64 24 75 07/13/20 15:00 63 26 101/53 (69) 99 I&O Intake and Output 07/13/20 07/14/20 19:00 07:00 Intake Total 980 ml 1290 ml Output Total 720 ml 920 ml Balance 260 ml 370 ml Free Water 30 ml 90 ml IV Total 400 ml 600 ml Tube Feeding 550 ml 600 ml Output Urine Total 670 ml 850 ml Chest Tube Drainage Total 50 ml 70 ml # Bowel Movements 1 Dressing: other Wound: other Cardiovascular: RSR Respiratory: decreased breath sounds Abdomen: non-tender, present bowel sounds Extremities: edema, no cyanosis Laboratory Tests Test 07/13/20 17:48 07/13/20 21:21 07/13/20 23:51 07/14/20 04:30 POC Whole Blood Glucose Pending 147 MG/DL (74-106) H 151 MG/DL (74-106) H White Blood Count 9.6 K/UL (4.8-10.8) Red Blood Count 2.58 M/UL (4.20-5.40) L Hemoglobin 8.2 G/DL (12.0-16.0) L Hematocrit 24.8 % (37.0-47.0) L Mean Corpuscular Volume 96 FL (80-99) Mean Corpuscular Hemoglobin 31.9 PG (27.0-31.0) H Mean Corpuscular Hemoglobin Concent 33.2 G/DL (32.0-36.0) Red Cell Distribution Width 18.1 % (11.6-14.8) H Platelet Count 89 K/UL (150-450) L Mean Platelet Volume 8.7 FL (6.5-10.1) Neutrophils (%) (Auto) % (45.0-75.0) Lymphocytes (%) (Auto) % (20.0-45.0) Monocytes (%) (Auto) % (1.0-10.0) Eosinophils (%) (Auto) % (0.0-3.0) Basophils (%) (Auto) % (0.0-2.0) Differential Total Cells Counted 100 Neutrophils % (Manual) 80 % (45-75) H Lymphocytes % (Manual) 14 % (20-45) L Monocytes % (Manual) 4 % (1-10) Eosinophils % (Manual) 1 % (0-3) Basophils % (Manual) 0 % (0-2) Band Neutrophils 1 % (0-8) Platelet Estimate Decreased L Platelet Morphology Normal Hypochromasia 1+ Anisocytosis 2+ Erythrocyte Sedimentation Rate 52 MM/HR (0-30) H Sodium Level 144 MMOL/L (136-145) Potassium Level 3.7 MMOL/L (3.5-5.1) Chloride Level 112 MMOL/L (98-107) H Carbon Dioxide Level 29 MMOL/L (21-32) Blood Urea Nitrogen 20 mg/dL (7-18) H Creatinine 0.6 MG/DL (0.55-1.30) Estimat Glomerular Filtration Rate > 60 mL/min (>60) Glucose Level 164 MG/DL (74-106) H Calcium Level 6.9 MG/DL (8.5-10.1) L Phosphorus Level 1.5 MG/DL (2.5-4.9) L Magnesium Level 1.8 MG/DL (1.8-2.4) Total Bilirubin 0.7 MG/DL (0.2-1.0) Aspartate Amino Transf (AST/SGOT) 20 U/L (15-37) Alanine Aminotransferase (ALT/SGPT) 18 U/L (12-78) Alkaline Phosphatase 51 U/L (46-116) C-Reactive Protein, Quantitative 15.5 mg/dL (0.00-0.90) H Total Protein 4.3 G/DL (6.4-8.2) L Albumin 1.1 G/DL (3.4-5.0) L Globulin 3.2 g/dL Albumin/Globulin Ratio 0.3 (1.0-2.7) L Test 07/14/20 12:13 POC Whole Blood Glucose 128 MG/DL (74-106) H Plan Problems: (1) Respiratory distress Assessment & Plan: Respiratory insufficiency requiring prolonged ventilator support. Patient on minimal vent settings right now currently in stable but unfortunately not safe for extubation. Tracheostomy is indicated recommended. I discussed case with pulmonology team ICU team medical teams. Patient unable to make decisions and her current condition and given her history. The care team has been contacted and will be reviewed for evaluation and consideration of the tracheostomy. If consented I think it is reasonable for tracheostomy given patient's current CODE STATUS care plan and goals of care. Extubation his current status is potentially high risk for reintubation emergency complication. We will plan for tracheostomy if consent is obtained. Thank you for let me participate patient's care will follow with recommendations will plan for trach when ready wean [id number] (2) Encephalopathy chronic (3) Dysphagia (4) Down's syndrome (5) Sepsis (6) Acute respiratory failure (7) Pneumonia (8) Trisomy 21, Down syndrome (9) LEANN (acute kidney injury) (10) Bacteremia (11) Hypokalemia (12) Anemia (13) Diarrhea (14) Hypernatremia (15) Pneumothorax (16) Pneumothorax, right Assessment & Plan: right ptx. s/p chest tube tube removed 07/11 left ptx tube placed 07/10 (17) Cardiac arrest (18) ARDS (adult respiratory distress syndrome) (19) Septic shock (20) HCAP (healthcare-associated pneumonia) (21) Respiratory failure requiring intubation (22) Seizure disorder (23) Hypothyroidism Mark Gordon Jul 14, 2020 14:37
--- NOTE | 2020-07-14 15:31 | Cardiology Progress Note ---
Assessment/Plan Assessment/Plan sepsis respiratory failure ards renal insuf bacteremia abn cardiac enzyme due to demand sinus rafael stable thrombocytopenia resolved hypernatremia pneumothorax now s/p chest tube on the left now vent support abx tsh seems fine remains off pressor still at this time hr inthe 60's s no sig pauses on tele tele personally reviewed she pulled out the right sided ct has left thoravent trach plans cancelled on 07/13 bp better still sig secretions no on 60% Subjective Subjective on a vent not communicative not AWAKE Objective Last 24 Hour Vital Signs Date Time Temp Pulse Resp B/P (MAP) Pulse Ox O2 Delivery O2 Flow Rate FiO2 07/14/20 14:00 61 24 120/63 (82) 97 07/14/20 13:00 63 23 117/57 (77) 98 07/14/20 12:00 65 07/14/20 12:00 64 07/14/20 12:00 98.5 65 20 119/50 (73) 96 07/14/20 12:00 Mechanical Ventilator Mechanical Ventilator Mechanical Ventilator 07/14/20 11:00 64 22 114/48 (70) 98 07/14/20 11:00 62 24 65 07/14/20 10:00 64 27 101/50 (67) 97 07/14/20 09:00 66 18 112/47 (68) 89 07/14/20 08:00 Mechanical Ventilator Mechanical Ventilator Mechanical Ventilator 07/14/20 08:00 98.2 66 29 101/47 (65) 96 07/14/20 08:00 65 07/14/20 08:00 64 07/14/20 07:00 71 30 90/56 (67) 96 07/14/20 06:00 63 36 93/39 (57) 96 07/14/20 05:00 69 36 108/63 (78) 94 07/14/20 04:00 75 07/14/20 04:00 69 07/14/20 04:00 98.4 64 24 99/47 (64) 95 07/14/20 04:00 Mechanical Ventilator Mechanical Ventilator Mechanical Ventilator 07/14/20 03:08 56 24 75 07/14/20 03:00 61 24 104/47 (66) 96 07/14/20 02:00 69 22 125/53 (77) 96 07/14/20 01:00 62 27 128/44 (72) 98 07/14/20 00:00 98.2 65 25 104/59 (74) 98 07/14/20 00:00 Mechanical Ventilator Mechanical Ventilator Mechanical Ventilator 07/14/20 00:00 75 07/14/20 00:00 65 07/13/20 23:19 62 24 75 07/13/20 23:00 61 25 88/44 (59) 99 07/13/20 22:00 64 25 100/37 (58) 97 07/13/20 21:19 69 27 112/39 (63) 99 07/13/20 21:00 64 24 84/41 (55) 98 07/13/20 20:00 64 07/13/20 20:00 75 07/13/20 20:00 98.0 66 25 97/58 (71) 97 07/13/20 20:00 Mechanical Ventilator Mechanical Ventilator Mechanical Ventilator 07/13/20 19:30 67 24 75 07/13/20 19:00 61 24 94/45 (61) 99 07/13/20 18:00 98.8 62 24 86/38 (54) 98 07/13/20 17:00 98.8 63 23 116/49 (71) 98 07/13/20 16:00 Mechanical Ventilator Mechanical Ventilator Mechanical Ventilator 07/13/20 16:00 98.8 64 27 112/40 (64) 97 07/13/20 16:00 64 General Appearance: no apparent distress, on vent, patient on isolation, isolation precautions Neck: supple Cardiovascular: normal rate Respiratory/Chest: rhonchi - bilaterally Abdomen: normal bowel sounds, non tender, soft Extremities: no swelling Intake and Output 07/13/20 07/14/20 19:00 07:00 Intake Total 980 ml 1290 ml Output Total 720 ml 920 ml Balance 260 ml 370 ml Free Water 30 ml 90 ml IV Total 400 ml 600 ml Tube Feeding 550 ml 600 ml Output Urine Total 670 ml 850 ml Chest Tube Drainage Total 50 ml 70 ml # Bowel Movements 1 Laboratory Tests Test 07/13/20 17:48 07/13/20 21:21 07/13/20 23:51 07/14/20 04:30 POC Whole Blood Glucose Pending 147 MG/DL (74-106) H 151 MG/DL (74-106) H White Blood Count 9.6 K/UL (4.8-10.8) Red Blood Count 2.58 M/UL (4.20-5.40) L Hemoglobin 8.2 G/DL (12.0-16.0) L Hematocrit 24.8 % (37.0-47.0) L Mean Corpuscular Volume 96 FL (80-99) Mean Corpuscular Hemoglobin 31.9 PG (27.0-31.0) H Mean Corpuscular Hemoglobin Concent 33.2 G/DL (32.0-36.0) Red Cell Distribution Width 18.1 % (11.6-14.8) H Platelet Count 89 K/UL (150-450) L Mean Platelet Volume 8.7 FL (6.5-10.1) Neutrophils (%) (Auto) % (45.0-75.0) Lymphocytes (%) (Auto) % (20.0-45.0) Monocytes (%) (Auto) % (1.0-10.0) Eosinophils (%) (Auto) % (0.0-3.0) Basophils (%) (Auto) % (0.0-2.0) Differential Total Cells Counted 100 Neutrophils % (Manual) 80 % (45-75) H Lymphocytes % (Manual) 14 % (20-45) L Monocytes % (Manual) 4 % (1-10) Eosinophils % (Manual) 1 % (0-3) Basophils % (Manual) 0 % (0-2) Band Neutrophils 1 % (0-8) Platelet Estimate Decreased L Platelet Morphology Normal Hypochromasia 1+ Anisocytosis 2+ Erythrocyte Sedimentation Rate 52 MM/HR (0-30) H Sodium Level 144 MMOL/L (136-145) Potassium Level 3.7 MMOL/L (3.5-5.1) Chloride Level 112 MMOL/L (98-107) H Carbon Dioxide Level 29 MMOL/L (21-32) Blood Urea Nitrogen 20 mg/dL (7-18) H Creatinine 0.6 MG/DL (0.55-1.30) Estimat Glomerular Filtration Rate > 60 mL/min (>60) Glucose Level 164 MG/DL (74-106) H Calcium Level 6.9 MG/DL (8.5-10.1) L Phosphorus Level 1.5 MG/DL (2.5-4.9) L Magnesium Level 1.8 MG/DL (1.8-2.4) Total Bilirubin 0.7 MG/DL (0.2-1.0) Aspartate Amino Transf (AST/SGOT) 20 U/L (15-37) Alanine Aminotransferase (ALT/SGPT) 18 U/L (12-78) Alkaline Phosphatase 51 U/L (46-116) C-Reactive Protein, Quantitative 15.5 mg/dL (0.00-0.90) H Total Protein 4.3 G/DL (6.4-8.2) L Albumin 1.1 G/DL (3.4-5.0) L Globulin 3.2 g/dL Albumin/Globulin Ratio 0.3 (1.0-2.7) L Test 07/14/20 12:13 POC Whole Blood Glucose 128 MG/DL (74-106) H Josue Pantoja MD Jul 14, 2020 15:31
--- NOTE | 2020-07-14 16:00 | NUR ---
NURSE NOTES: Pt repositioned; oral care provided; pt afebrile. FiO2 titrated down to 55% at this time. Pt in no distress. SpO2 96-97%. Will continue to monitor.
--- NOTE | 2020-07-14 17:17 | Internal Med Progress Note ---
Subjective Date of Service: Jul 14, 2020 Physician Name Joni Copeland Attending Physician Elayne Allred MD Current Medications Medications (Trade) Dose Ordered Sig/Katy Route PRN Reason Start Time Stop Time Status Last Admin Dose Admin Acetaminophen (Tylenol) 650 mg Q4H PRN GT For Pain 07/01/20 17:15 07/31/20 17:14 07/10/20 17:46 Chlorhexidine Gluconate (Alla-Hex 2%) 1 applic DAILY@2000 TOPIC 06/08/20 20:00 09/06/20 19:59 07/13/20 20:21 Clotrimazole (Lotrimin) 1 applic Q12HR TOPIC 06/07/20 13:00 09/05/20 12:59 07/14/20 09:22 Dextrose (Dextrose 50%) 25 ml Q30M PRN IV Hypoglycemia 06/03/20 11:30 08/28/20 11:29 Dextrose (Dextrose 50%) 50 ml Q30M PRN IV Hypoglycemia 06/03/20 11:30 08/28/20 11:29 Hydrocortisone (Solu-CORTEF) 50 mg EVERY 12 HOURS IV 07/10/20 21:00 10/04/20 20:59 07/14/20 09:21 Insulin Aspart (NovoLOG) Q6HR SUBQ 06/26/20 12:00 09/24/20 11:59 07/14/20 06:36 Insulin Detemir (Levemir) 10 units Q12HR SUBQ 06/26/20 10:00 09/24/20 09:59 07/14/20 09:45 Levothyroxine Sodium (Synthroid) 75 mcg DAILY@0630 GT 07/08/20 06:30 08/07/20 06:29 07/14/20 06:35 Loperamide HCl (Imodium) 2 mg Q6H PRN NG Diarrhea 06/24/20 10:30 07/24/20 10:29 07/01/20 11:41 Lorazepam (Ativan 2mg/ml 1ml) 2 mg Q4H PRN IV For Anxiety 07/13/20 00:45 07/20/20 00:44 07/13/20 03:06 Pantoprazole (Protonix) 40 mg EVERY 12 HOURS IVP 07/06/20 21:00 08/05/20 20:59 07/14/20 09:21 Potassium Phosphate 20 mm/ Sodium Chloride 281.6667 ml @ 46.944 m... ONCE ONCE IV 07/14/20 14:00 07/14/20 19:59 07/14/20 14:41 Potassium Chloride (K-Dur) 40 meq EVERY 12 HOURS GT 07/04/20 21:00 09/26/20 12:14 07/14/20 09:21 Sodium Chloride 1,000 ml @ 50 mls/hr Q20H IV 07/12/20 11:00 08/11/20 10:59 07/14/20 01:27 Allergies: Coded Allergies: No Known Allergies (Unverified , 10/16/18) ROS Limited/Unobtainable: Yes Subjective 59 YO F with Down's syndrome admitted with hypoxia. Now sepsis and pneumonia. Cover for Int Med-[facility]. ICU. Intubated and sedated Objective Last Vital Signs Date Time Temp Pulse Resp B/P (MAP) Pulse Ox O2 Delivery O2 Flow Rate FiO2 07/14/20 17:00 59 22 99/44 (62) 94 07/14/20 16:00 55 07/14/20 16:00 Mechanical Ventilator Mechanical Ventilator Mechanical Ventilator 07/14/20 16:00 98.2 Laboratory Tests Test 07/13/20 17:48 07/13/20 21:21 07/13/20 23:51 07/14/20 04:30 POC Whole Blood Glucose Pending 147 MG/DL (74-106) H 151 MG/DL (74-106) H White Blood Count 9.6 K/UL (4.8-10.8) Red Blood Count 2.58 M/UL (4.20-5.40) L Hemoglobin 8.2 G/DL (12.0-16.0) L Hematocrit 24.8 % (37.0-47.0) L Mean Corpuscular Volume 96 FL (80-99) Mean Corpuscular Hemoglobin 31.9 PG (27.0-31.0) H Mean Corpuscular Hemoglobin Concent 33.2 G/DL (32.0-36.0) Red Cell Distribution Width 18.1 % (11.6-14.8) H Platelet Count 89 K/UL (150-450) L Mean Platelet Volume 8.7 FL (6.5-10.1) Neutrophils (%) (Auto) % (45.0-75.0) Lymphocytes (%) (Auto) % (20.0-45.0) Monocytes (%) (Auto) % (1.0-10.0) Eosinophils (%) (Auto) % (0.0-3.0) Basophils (%) (Auto) % (0.0-2.0) Differential Total Cells Counted 100 Neutrophils % (Manual) 80 % (45-75) H Lymphocytes % (Manual) 14 % (20-45) L Monocytes % (Manual) 4 % (1-10) Eosinophils % (Manual) 1 % (0-3) Basophils % (Manual) 0 % (0-2) Band Neutrophils 1 % (0-8) Platelet Estimate Decreased L Platelet Morphology Normal Hypochromasia 1+ Anisocytosis 2+ Erythrocyte Sedimentation Rate 52 MM/HR (0-30) H Sodium Level 144 MMOL/L (136-145) Potassium Level 3.7 MMOL/L (3.5-5.1) Chloride Level 112 MMOL/L (98-107) H Carbon Dioxide Level 29 MMOL/L (21-32) Blood Urea Nitrogen 20 mg/dL (7-18) H Creatinine 0.6 MG/DL (0.55-1.30) Estimat Glomerular Filtration Rate > 60 mL/min (>60) Glucose Level 164 MG/DL (74-106) H Calcium Level 6.9 MG/DL (8.5-10.1) L Phosphorus Level 1.5 MG/DL (2.5-4.9) L Magnesium Level 1.8 MG/DL (1.8-2.4) Total Bilirubin 0.7 MG/DL (0.2-1.0) Aspartate Amino Transf (AST/SGOT) 20 U/L (15-37) Alanine Aminotransferase (ALT/SGPT) 18 U/L (12-78) Alkaline Phosphatase 51 U/L (46-116) C-Reactive Protein, Quantitative 15.5 mg/dL (0.00-0.90) H Total Protein 4.3 G/DL (6.4-8.2) L Albumin 1.1 G/DL (3.4-5.0) L Globulin 3.2 g/dL Albumin/Globulin Ratio 0.3 (1.0-2.7) L Test 07/14/20 12:13 POC Whole Blood Glucose 128 MG/DL (74-106) H Intake and Output 07/13/20 07/14/20 19:00 07:00 Intake Total 980 ml 1290 ml Output Total 720 ml 920 ml Balance 260 ml 370 ml Free Water 30 ml 90 ml IV Total 400 ml 600 ml Tube Feeding 550 ml 600 ml Output Urine Total 670 ml 850 ml Chest Tube Drainage Total 50 ml 70 ml # Bowel Movements 1 Objective General Appearance: WD/WN, no apparent distress, alert EENT: PERRL/EOMI, normal ENT inspection Neck: non-tender, normal alignment, supple, normal inspection Cardiovascular: normal peripheral pulses, normal rate, regular rhythm, no gallop/murmur, no JVD Respiratory/Chest: Mech vent; decreased breath sounds, crackles/rales, rhonchi - bilaterally, expiratory wheezing Abdomen: normal bowel sounds, non tender, soft, no organomegaly, no mass Extremities: normal range of motion Neurologic: electrolysis investigator II-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 S/P amikacin per ID=Dr Camejo. Pulmonary/Critical care=DR Allred. COVID NEG (2) Sepsis Assessment & Plan: Staph haemolyticus. S/P amikacin per ID=Dr Camejo (3) Down's syndrome (4) Dysphagia Assessment & Plan: S/P PEG (5) Seizure disorder Assessment & Plan: Continue keppra and depakote (6) Hypothyroidism Assessment & Plan: Continue synthroid (7) Acute respiratory failure Assessment & Plan: Pulmonary = Dr Allred; mech vent (8) Pneumothorax, right Assessment & Plan: Continue chest tube per pulmonary (9) Cardiac arrest Assessment & Plan: 06/03/20-see cardiology note=Joni Lord MD Jul 14, 2020 17:17
--- NOTE | 2020-07-14 18:00 | NUR ---
NURSE NOTES: Pt repositioned and cleaned. No distress noted. Chest tube drainage device changed.
--- NOTE | 2020-07-14 19:19 | NUR ---
NURSE HAND-OFF REPORT: Latest Vital Signs: Temperature 98.2 , Pulse 61 , B/P 98 /57 , Respiratory Rate 24 , O2 SAT 95 , Mechanical Ventilator, FiO2 55%, spO2 96%. Vital Sign Comment: stable EKG Rhythm: Sinus Rhythm Rhythm change?: N MD Notified?: n/a MD Response: N/a Latest Osorio Fall Score: 70 Fall Risk: High Risk Safety Measures: Call light Within Reach, Bed Alarm Zone 1, Side Rails Side Rails x3, Bed position Low and Locked. Fall Precautions: Yellow Socks Door Sign Patient Fall Education Report given to Marci Perez RN.
--- NOTE | 2020-07-14 19:30 | NUR ---
NURSE NOTES: Received pt with eyes close but easily arousable to tactile stimulation, orally intubated on ac mode Thoravent left chest to low intermittent suction with pale yellow drainage approximately 50ml.. Tolerated GT fdg with acceptable residuals. HOB kept elevated on aspiration precaution. Pt with pressure sores pls see pictures. All are covered with Optifoam . On P 200 mattress. Turned q 2hrs pRN with good skin care done. Will continue to monitor.
[2020-07-14] MEDS: Dyna-Hex 2% Top Sol 2oz TOPIC SCH (20:20)
[2020-07-15] VITALS (24 sets, daily range): BP systolic 94–135; BP diastolic 36–60
--- NOTE | 2020-07-15 | NUR ---
NURSE NOTES: Accucheck with coverage. pls see emar
[2020-07-15 05:00] LABS: HEMATOCRIT 22.3 % (37.0-47.0); HEMOGLOBIN 7.5 G/DL (12.0-16.0); MEAN CORPUSCULAR VOLUME 95 FL (80-99); PLATELET COUNT 74 K/UL (150-450); RED BLOOD COUNT 2.35 M/UL (4.20-5.40); WHITE BLOOD COUNT 7.5 K/UL (4.8-10.8)
[2020-07-15 05:44] LABS: ALANINE AMINOTRANSFERASE 19 U/L (12-78); ALBUMIN 1.1 G/DL (3.4-5.0); ALBUMIN/GLOBULIN RATIO 0.3 (1.0-2.7); ALKALINE PHOSPHATASE 51 U/L (46-116); ANION GAP 8 mmol/L (5-15); ASPARTATE AMINO TRANSFERASE 18 U/L (15-37); BILIRUBIN,TOTAL 0.6 MG/DL (0.2-1.0); BLOOD UREA NITROGEN 16 mg/dL (7-18); CALCIUM 6.9 MG/DL (8.5-10.1); CARBON DIOXIDE 26 MMOL/L (21-32); CHLORIDE 111 MMOL/L (98-107); CREATININE 0.6 MG/DL (0.55-1.30); PHOSPHORUS 2.5 MG/DL (2.5-4.9); POTASSIUM 3.7 MMOL/L (3.5-5.1); SODIUM 145 MMOL/L (136-145)
[2020-07-15] MEDS: NovoLOG Insulin Flexpen SUBQ SCH ×5 (06:10→23:56)
--- NOTE | 2020-07-15 07:17 | NUR ---
NURSE HAND-OFF REPORT: Latest Vital Signs: Temperature 98.2 , Pulse 59 , B/P 110 /54 , Respiratory Rate 24 , O2 SAT 95 , Mechanical Ventilator, O2 Flow Rate 15.0 . Vital Sign Comment: EKG Rhythm: Sinus Bradycardia Rhythm change?: N Notified?: Y Chaparro Oliveros MD Response: No New Orders Received Latest Osorio Fall Score: 70 Fall Risk: High Risk Safety Measures: Call light Within Reach, Bed Alarm Zone 1, Side Rails Side Rails x3, Bed position Low and Locked. Fall Precautions: Yellow Socks Door Sign Patient Fall Education Report given to Kareem LUJAN
--- NOTE | 2020-07-15 07:19 | NUR ---
Report received from TAI Covarrubias. Pt is asleep in bed. Vitals stable at HR 66, 99% O2, 24RR, 95/54. Pt has a current out put of 15cc from chest tube. soft restraints still in place. Pt has noted redness on sacral region, perineum. pt has left toe DTI. PICC line patent and intact, current fluids running 1/2 NS @ 50mls/hr.
--- NOTE | 2020-07-15 08:01 | NUR ---
NURSE NOTES: Xray at bedside Addendum: 07/15/20 at 0802 by Leora Delgadillo RN RN NURSE NOTES: *correctection: RT at bedside.
[2020-07-15] MEDS: Hydrocortisone 100mg Inj IV SCH ×2 (08:27→20:04)
[2020-07-15] MEDS: Pantoprazole Inj IVP SCH ×2 (08:27→20:04)
[2020-07-15] MEDS: Levemir Flexpen SUBQ SCH ×2 (09:07→20:10)
--- NOTE | 2020-07-15 09:26 | Nephrology Progress Note ---
Assessment/Plan Problem List: (1) LEANN (acute kidney injury) (2) Respiratory failure requiring intubation (3) Down's syndrome (4) Seizure disorder (5) Hypothyroidism Assessment Acute renal failure, likely due to hypotension Acute respiratory distress, hypoxia Seizure disorder Hypothyroidism Down syndrome Full code Fluid challenge with IV fluids and albumin Midodrine for BP above 100 systolic Check TSH level Check Correct level Monitor renal parameters Urine studies Per orders Plan July 15: On ventilator. Left chest tube remains. Full code. Labs reviewed. Electrolyte abnormalities addressed. Continue per consultants. July 14: On ventilator. Tracheostomy postponed because patient is clinically unstable. Still have left chest tube draining. Labs reviewed. Electrolyte abnormalities addressed. Continue per consultants. July 13: Remains intubated on ventilator. Discussed with RN. Unclear if the patient is due for tracheostomy today or not. Apparently the patient was reintubated again yesterday. Patient has left chest tube. Electrolyte abnor malities addressed. July 12: Remains intubated on ventilator. Due for tracheostomy tomorrow. Left chest tube present. Patient is full code. Labs reviewed. Continue as is. July 11: Remains intubated on ventilator. Due for tracheostomy July 13. Has left-sided chest tube. Stable from renal standpoint to view. Continue per consultants. July 10: Remains intubated on ventilator. Electrolyte abnormalities addressed. Supplements ordered. July 09: Intubated on ventilator. Labs reviewed. Potassium supplement given. Remains bradycardic. Continue per consultants. July 08: Labs reviewed. Electrolyte abnormalities addressed. Heart rate remains bradycardic. Continue per cardiology. Continue to monitor renal parameters and electrolytes. July 07: Labs reviewed. Electrolyte abnormalities addressed and replaced. Medication list reviewed. Heart rate remains mid 50s. Continue as is. July 06: On ventilator. Full code. Heart rate low. Will discontinue Midodrin. Continue to rest. Electrolytes within normal limit. Discussed with RN. July 05: Remains intubated. Full code. No plan for tracheostomy yet. Labs reviewed. All acceptable. Continue same management July 04: Labs reviewed. Discussed with RN. Potassium and phosphorus and magnesium replacement ordered. Hemoglobin 9.5. Patient remains full code. Continue per consultants. July 03: Lab reviewed. Renal parameters stable. Full code. Intubated. Electrolyte abnormalities addressed and replacement done. July 02: Lab reviewed. Renal parameters stable. Full code. Intubated. Has right side chest tube. Continue per consultants. July 01: Lab reviewed. Renal parameters stable. Full code. Has right chest tube. Planning process for tracheostomy. Defer to chest and general surgeon. June 30: Labs reviewed. Renal parameters stable. Remains full code. Remains on ventilator. Due for tracheostomy tomorrow. Continue per consultants. Patient has a right chest tube in place at this time. June 29: Labs reviewed. Electrolyte imbalances addressed and supplemented. Remains full code and on ventilator. Continue to monitor renal parameters. Continue per consultants. June 28: Labs reviewed. Serum potassium again low today. Potassium suppl ement IV and through GT given. Patient remains full code and is on ventilator. Continue per consultants. Continue to monitor electrolytes and renal parameters. June 27: Labs reviewed. Abnormal electrolyte addressed. Remains full code. Remains vented. June 26: Day 27 of hospitalization. Full code. Labs reviewed. Hemoglobin down to 7.5. Electrolyte abnormalities addressed and corrections ordered. Continue to monitor renal parameters. Continue per consultants. Start on Levemir for blood sugar management. Questioning continuation of hydrocortisone? June 25: Labs reviewed. Potassium, phosphorus, hemoglobin, are all low. Potassium and phosphorus IV replacement given. Continue to monitor electrolytes and CBC. Patient remains full code. June 24: Lab reviewed. Low phosphorus low magnesium and low potassium was addressed. Hemoglobin drifting lower. Continue per consultants. Patient remains full code. June 23: Labs reviewed. Patient continues to be on ventilator. D5W for high sodium and also potassium chloride intravenously as supplement given. Hemoglobin 8.4. Continue to monitor electrolytes and renal parameters. June 22: Labs reviewed. Low potassium and high sodium noted. Hemoglobin 8.1 stable. Aim to correct abnormal electrolyte. Continue rest. Will give 2 boluses of D5W 500 cc. June 21: Lab reviewed. Abnormal electrolytes noted and addressed. June 20: Labs reviewed. Potassium supplement given. Patient remains full code. Continue per consultants. June 19: Lab reviewed. Electrolyte abnormalities addressed. Continue per pulmonary and ID. June 18: Lab reviewed. Status unchanged. Serum sodium 151 unchanged. Stable from renal standpoint of view. June 17: Labs reviewed. Status quo. D5W 500 cc IV ordered. Continue to monitor renal parameters. June 16: Status quo. Labs reviewed. Overall condition unchanged. Patient was transfused and hemoglobin higher. Continue current management. Patient remains full code. June 15: Status quo. Overall condition poor. Very low albumin. Edematous. Hypotensive. Hemoglobin lower. Anemia work-up ordered. I favor transfusion 2 units of packed RBCs. Patient remains full code. I favor supportive care only. Will discuss. June 14: Electrolyte abnormalities addressed. Serum creatinine lower. Continue per current management. June 13: Status unchanged. Lab reviewed. Serum potassium 2.7. IV potassium chloride ordered. Serum creatinine low at 1.6 stable. Blood pressure 90s systolic June 12: Status quo. Labs reviewed. Renal parameters stable. Serum creatinine down to 1.6. Medication list reviewed. Continues to be on midodrine. Continue per consultants. June 11: Status quo. Labs reviewed. Electrolytes adjusted. Serum creatinine down to 1.8. Continue per consultants. June 10: Status quo. Labs reviewed. Phosphorus supplement IV given. Serum creatinine 2. Continue per consultants. June 09: Requires less pressors. Albumin bolus given. 1 dose of Lasix IV o rdered as the patient severely edematous. Patient serum albumin is very low. Continue per consultants. June 08: Continues to be intubated. Labs reviewed. Serum creatinine 1.9 unchanged. Blood pressure more stable. Off 1 of the pressors. Continue to monitor renal parameters. Continue per consultants. Patient now on hydrocortisone 100 mg every 8 hours. Will decrease IV fluid. Normal saline down to 50 cc an hour. June 07: Intubated. Labs reviewed. Creatinine 1.9 unchanged. Continue same treatment plan. Per consultants. Overall poor prognosis since the patient remains on pressors and her pulmonary status is worsening. June 06: Remains intubated. Labs reviewed. Creatinine 1.9. Blood pressure systolic 90s. Continue per consultants. June 05: Remains intubated. Labs reviewed. Serum creatinine lower to 2. Vancomycin level lower. Remains hypotensive on pressors. Will increase midodrine to 10 mg every 8 hours. Continue per consultants. Continue to monitor renal parameters. June 04: Patient now in ICU. Intubated. On pressors. Labs reviewed. Will increase midodrine. Aim to keep blood pressure over 100 systolic. Will give albumin bolus. Will check vancomycin level which was elevated when checked previously on June 01. Will monitor renal parameters. Continue per consultants. Subjective ROS Limited/Unobtainable: Yes Objective Objective Last 24 Hour Vital Signs Date Time Temp Pulse Resp B/P (MAP) Pulse Ox O2 Delivery O2 Flow Rate FiO2 07/15/20 08:20 50 07/15/20 08:00 30 07/15/20 07:30 68 24 55 07/15/20 07:00 66 21 95/54 (68) 92 07/15/20 06:00 82 24 126/53 (77) 94 07/15/20 05:00 59 24 110/54 (72) 95 07/15/20 04:00 98.2 59 23 99/44 (62) 96 07/15/20 04:00 55 07/15/20 04:00 Mechanical Ventilator Mechanical Ventilator Mechanical Ventilator 07/15/20 04:00 61 07/15/20 03:20 59 24 55 07/15/20 03:00 60 24 104/36 (58) 96 07/15/20 02:00 70 21 127/54 (78) 96 07/15/20 01:00 61 24 119/58 (78) 96 07/15/20 00:00 98.4 62 25 113/52 (72) 95 07/15/20 00:00 55 07/15/20 00:00 Mechanical Ventilator Mechanical Ventilator Mechanical Ventilator 07/15/20 00:00 63 07/14/20 23:53 61 24 55 07/14/20 23:00 65 23 103/48 (66) 97 07/14/20 22:00 68 24 105/52 (69) 94 07/14/20 21:10 64 24 55 07/14/20 21:00 67 25 89/43 (58) 96 07/14/20 20:00 65 07/14/20 20:00 55 07/14/20 20:00 Mechanical Ventilator Mechanical Ventilator Mechanical Ventilator 07/14/20 20:00 98.0 75 27 109/79 (89) 93 07/14/20 19:00 61 24 98/57 (71) 95 07/14/20 18:00 58 25 96/45 (62) 96 07/14/20 17:00 59 22 99/44 (62) 94 07/14/20 16:00 55 07/14/20 16:00 60 07/14/20 16:00 Mechanical Ventilator Mechanical Ventilator Mechanical Ventilator 07/14/20 16:00 98.2 62 25 101/44 (63) 97 07/14/20 15:25 67 24 55 07/14/20 15:00 60 24 101/44 (63) 97 07/14/20 14:00 61 24 120/63 (82) 97 07/14/20 13:00 63 23 117/57 (77) 98 07/14/20 12:00 65 07/14/20 12:00 64 07/14/20 12:00 98.5 65 20 119/50 (73) 96 07/14/20 12:00 Mechanical Ventilator Mechanical Ventilator Mechanical Ventilator 07/14/20 11:32 67 24 65 07/14/20 11:00 64 22 114/48 (70) 98 07/14/20 11:00 62 24 65 07/14/20 10:00 64 27 101/50 (67) 97 Intake and Output 07/14/20 07/15/20 19:00 07:00 Intake Total 1427.776 ml 1100 ml Output Total 820 ml 500 ml Balance 607.776 ml 600 ml Free Water 40 ml 50 ml IV Total 787.776 ml 600 ml Tube Feeding 600 ml 450 ml Output Urine Total 720 ml 500 ml Chest Tube Drainage Total 100 ml # Bowel Movements 2 3 Laboratory Tests 07/14/20 12:13: POC Whole Blood Glucose 128H 07/15/20 00:28: POC Whole Blood Glucose 121H 07/15/20 04:00: White Blood Count 7.5, Red Blood Count 2.35L, Hemoglobin 7.5L, Hematocrit 22.3L, Mean Corpuscular Volume 95, Mean Corpuscular Hemoglobin 32.0H, Mean Corpuscular Hemoglobin Concent 33.7, Red Cell Distribution Width 18.0H, Platelet Count 74L, Mean Platelet Volume 7.7, Neutrophils (%) (Auto) , Lymphocytes (%) (Auto) , Monocytes (%) (Auto) , Eosinophils (%) (Auto) , Basophils (%) (Auto) , Sodium Level 145, Potassium Level 3.7, Chloride Level 111H, Carbon Dioxide Level 26, Anion Gap 8, Blood Urea Nitrogen 16, Creatinine 0.6, Estimat Glomerular Filtration Rate > 60, Glucose Level 156H, Calcium Level 6.9L, Phosphorus Level 2.5, Magnesium Level 1.6L, Total Bilirubin 0.6, Aspartate Amino Transf (AST/SGOT) 18, Alanine Aminotransferase (ALT/SGPT) 19, Alkaline Phosphatase 51, Total Protein 4.4L, Albumin 1.1L, Globulin 3.3, Albumin/Globulin Ratio 0.3L 07/15/20 04:13: POC Whole Blood Glucose 146H 07/15/20 08:06: Arterial Blood pH 7.524H, Arterial Blood Partial Pressure CO2 29.1L, Arterial Blood Partial Pressure O2 100.2H, Arterial Blood HCO3 23.4, Arterial Blood Oxygen Saturation 97.6, Arterial Blood Base Excess 0.9, Jonathan Test Positive Height (Feet): 5 Height (Inches): 3.00 Weight (Pounds): 172 General Appearance: no apparent distress Neck: limited range of motion Cardiovascular: normal rate Respiratory/Chest: decreased breath sounds Abdomen: distended Keron Pitt MD Jul 15, 2020 09:26
--- NOTE | 2020-07-15 09:52 | NUR ---
RADIOLOGY DEPT., CHEST X-RAY DONE.-P.DYE
--- NOTE | 2020-07-15 10:01 | Infectious Diseases Prog Note ---
Assessment/Plan ASSESSMENT: sp code blue 06/03 Septic Shock; SP Fever, recurrent- low grade -SP Leukocytosis; recurrent; SP -06/27 Bcx Neg -06/17 u/a no pyuria -06/16 Bcx Neg(Picc line) -06/14 Bcx Neg ucx Neg sp cx C. parapsilopsis -06/03 u/a no pyuria Pneumonia.- COVID 19 neg x3 Acute hypoxic resp failure on VM> NRB 15l 100%; hypoxic on ABG> now VDRF 06/03- Fio2 80% >100% 06/05> 60% 06/09 >80% 06/10 >95% 06/18 >90% 06/22 >60% 06/23 R tension Pneumothroax sp CT 06/29 07/13 CXR: Extensive bilateral airspace opacities, right greater than left, consistent with multifocal infiltrate worse pulmonary edema. This is similar in appearance to the prior study. Worsening, small left pleural effusion. This may be secondary to redistribution as the right-sided pleural effusion has mildly improved. -06/30 CXR: Interim complete reexpansion of right lung without evidence of residual pneumothorax. Bilateral diffuse and extensive infiltrates. Markedly improved chest wall subcutaneous emphysema -06/29 CXR: Interim reexpansion of previously demonstrated right pneumothorax, status post large bore chest tube placement. -06/22 CXR: Improved aeration of both lungs. -06/13 CXR:Small bilateral pleural effusions with minor edema. Stable edema with mild worsening in the degree of pleural effusion on the right. -06/09 sp cx Neg 06/08 CXR: Extensive bilateral interstitial and airspace disease appears similar to the prior exam. Moderate to large bilateral pleural effusions appear unchanged. 06/05 CXR: Increasing left upper lobe dense consolidation and likely increasing bilateral pleural fluid. Persistent diffuse dense consolidation elsewhere -06/03 sp cx normal resp marie -06/02 CXR: Increased atelectasis of the right lung, since prior exam of 3 days earlier. New or increased right pleural effusion. Increased left basilar consolidation and/or pleural fluid -COVID Rapid PCR neg 05/31, 05/31, 06/03 -05/30 spc x Group G strep -05/30 CXR: Reduced lung volumes. Patchy bilateral predominantly interstitial pulmonary opacities. Could be from edema and/or pneumonia. There is a broader differential. -legionella ag urine, blasto ab, Histo ab, HIV ab screen, FRANCIS, ANCA neg Persistent, high grade bacteremia- -05/30 Bcx 4/4 sets S. haemolyticus; 05/31 Bcx 3/4 S/ epi; 06/04 Bcx 1.4 S. warnerri; 06/06 Bcx Neg -2d echo: no vegetaions seen ua/ wbc 10-15, nit neg, leuk +1; ucx Neg LEANN; -supratherapeutic vanco levels -Seizure disorder. - Hypothyroidism. - Down syndrome. History of PEG tube placement. [place] resident PLAN: Monitor off abx unless febrile, increasing WBC and/or HD unstable 06/22 SP Meropenem #18, IV Amikacin #7 06/12/20 SP Daptomycin #11 06/10 SP MIcafungin #7, Linezolid #5 06/05 SP Azithromycin #77 06/03 SP Ceftriaxone #2 06/02 SP IV Vancomycin #4, Zosyn #4 05/30 SP Cefepime x1, Flagyl x1 - Monitor CBC, BMP. .f/u cx - COVID neg x3 - Monitor chest x-ray. Thank you, Dr. Allred, for allowing me to participate in the care of this patient. I will follow the patient with you at this hospitalization. Discussed with RN Subjective Allergies: Coded Allergies: No Known Allergies (Unverified , 10/16/18) afebrile remains intubated; Fio2 50% no leukocytosis off abx Objective Last 24 Hour Vital Signs Date Time Temp Pulse Resp B/P (MAP) Pulse Ox O2 Delivery O2 Flow Rate FiO2 07/15/20 09:00 66 22 110/49 (69) 94 07/15/20 08:20 50 07/15/20 08:00 98.3 68 21 99/47 (64) 96 07/15/20 08:00 30 07/15/20 08:00 Mechanical Ventilator Mechanical Ventilator Mechanical Ventilator 07/15/20 07:30 68 24 55 07/15/20 07:00 66 21 95/54 (68) 92 07/15/20 06:00 82 24 126/53 (77) 94 07/15/20 05:00 59 24 110/54 (72) 95 07/15/20 04:00 98.2 59 23 99/44 (62) 96 07/15/20 04:00 55 07/15/20 04:00 Mechanical Ventilator Mechanical Ventilator Mechanical Ventilator 07/15/20 04:00 61 07/15/20 03:20 59 24 55 07/15/20 03:00 60 24 104/36 (58) 96 07/15/20 02:00 70 21 127/54 (78) 96 07/15/20 01:00 61 24 119/58 (78) 96 07/15/20 00:00 98.4 62 25 113/52 (72) 95 07/15/20 00:00 55 07/15/20 00:00 Mechanical Ventilator Mechanical Ventilator Mechanical Ventilator 07/15/20 00:00 63 07/14/20 23:53 61 24 55 07/14/20 23:00 65 23 103/48 (66) 97 07/14/20 22:00 68 24 105/52 (69) 94 07/14/20 21:10 64 24 55 07/14/20 21:00 67 25 89/43 (58) 96 07/14/20 20:00 65 07/14/20 20:00 55 07/14/20 20:00 Mechanical Ventilator Mechanical Ventilator Mechanical Ventilator 07/14/20 20:00 98.0 75 27 109/79 (89) 93 07/14/20 19:00 61 24 98/57 (71) 95 07/14/20 18:00 58 25 96/45 (62) 96 07/14/20 17:00 59 22 99/44 (62) 94 07/14/20 16:00 55 07/14/20 16:00 60 07/14/20 16:00 Mechanical Ventilator Mechanical Ventilator Mechanical Ventilator 07/14/20 16:00 98.2 62 25 101/44 (63) 97 07/14/20 15:25 67 24 55 07/14/20 15:00 60 24 101/44 (63) 97 07/14/20 14:00 61 24 120/63 (82) 97 07/14/20 13:00 63 23 117/57 (77) 98 07/14/20 12:00 65 07/14/20 12:00 64 07/14/20 12:00 98.5 65 20 119/50 (73) 96 07/14/20 12:00 Mechanical Ventilator Mechanical Ventilator Mechanical Ventilator 07/14/20 11:32 67 24 65 07/14/20 11:00 64 22 114/48 (70) 98 07/14/20 11:00 62 24 65 07/14/20 10:00 64 27 101/50 (67) 97 Height (Feet): 5 Height (Inches): 3.00 Weight (Pounds): 172 HEENT: . ETT in place CHEST: Coarse breathing sounds. HEART: S1 and S2. ABDOMEN: Soft. PEG tube in place. SKIN: no rash Laboratory Tests Test 07/14/20 12:13 07/15/20 00:28 07/15/20 04:00 07/15/20 04:13 POC Whole Blood Glucose 128 MG/DL (74-106) H 121 MG/DL (74-106) H 146 MG/DL (74-106) H White Blood Count 7.5 K/UL (4.8-10.8) Red Blood Count 2.35 M/UL (4.20-5.40) L Hemoglobin 7.5 G/DL (12.0-16.0) L Hematocrit 22.3 % (37.0-47.0) L Mean Corpuscular Volume 95 FL (80-99) Mean Corpuscular Hemoglobin 32.0 PG (27.0-31.0) H Mean Corpuscular Hemoglobin Concent 33.7 G/DL (32.0-36.0) Red Cell Distribution Width 18.0 % (11.6-14.8) H Platelet Count 74 K/UL (150-450) L Mean Platelet Volume 7.7 FL (6.5-10.1) Neutrophils (%) (Auto) % (45.0-75.0) Lymphocytes (%) (Auto) % (20.0-45.0) Monocytes (%) (Auto) % (1.0-10.0) Eosinophils (%) (Auto) % (0.0-3.0) Basophils (%) (Auto) % (0.0-2.0) Sodium Level 145 MMOL/L (136-145) Potassium Level 3.7 MMOL/L (3.5-5.1) Chloride Level 111 MMOL/L (98-107) H Carbon Dioxide Level 26 MMOL/L (21-32) Anion Gap 8 mmol/L (5-15) Blood Urea Nitrogen 16 mg/dL (7-18) Creatinine 0.6 MG/DL (0.55-1.30) Estimat Glomerular Filtration Rate > 60 mL/min (>60) Glucose Level 156 MG/DL (74-106) H Calcium Level 6.9 MG/DL (8.5-10.1) L Phosphorus Level 2.5 MG/DL (2.5-4.9) Magnesium Level 1.6 MG/DL (1.8-2.4) L Total Bilirubin 0.6 MG/DL (0.2-1.0) Aspartate Amino Transf (AST/SGOT) 18 U/L (15-37) Alanine Aminotransferase (ALT/SGPT) 19 U/L (12-78) Alkaline Phosphatase 51 U/L (46-116) Total Protein 4.4 G/DL (6.4-8.2) L Albumin 1.1 G/DL (3.4-5.0) L Globulin 3.3 g/dL Albumin/Globulin Ratio 0.3 (1.0-2.7) L Test 07/15/20 08:06 Arterial Blood pH 7.524 (7.350-7.450) Arterial Blood Partial Pressure CO2 29.1 mmHg (35.0-45.0) L Arterial Blood Partial Pressure O2 100.2 mmHg (75.0-100.0) H Arterial Blood HCO3 23.4 mmol/L (22.0-26.0) Arterial Blood Oxygen Saturation 97.6 % (95-100) Arterial Blood Base Excess 0.9 (-2-2) Jonathan Test Positive Current Medications Medications (Trade) Dose Ordered Sig/Katy Route PRN Reason Start Time Stop Time Status Last Admin Dose Admin Acetaminophen (Tylenol) 650 mg Q4H PRN GT For Pain 07/01/20 17:15 07/31/20 17:14 07/10/20 17:46 Chlorhexidine Gluconate (Alla-Hex 2%) 1 applic DAILY@1999 TOPIC 06/08/20 20:00 09/06/20 19:59 07/14/20 20:20 Clotrimazole (Lotrimin) 1 applic Q12HR TOPIC 06/07/20 13:00 09/05/20 12:59 07/15/20 08:28 Dextrose (Dextrose 50%) 25 ml Q30M PRN IV Hypoglycemia 06/03/20 11:30 08/28/20 11:29 Dextrose (Dextrose 50%) 50 ml Q30M PRN IV Hypoglycemia 06/03/20 11:30 08/28/20 11:29 Hydrocortisone (Solu-CORTEF) 50 mg EVERY 12 HOURS IV 07/10/20 21:00 10/04/20 20:59 07/15/20 08:27 Insulin Aspart (NovoLOG) Q6HR SUBQ 06/26/20 12:00 09/24/20 11:59 07/15/20 06:10 Insulin Detemir (Levemir) 10 units Q12HR SUBQ 06/26/20 10:00 09/24/20 09:59 07/15/20 09:07 Levothyroxine Sodium (Synthroid) 75 mcg DAILY@0630 GT 07/08/20 06:30 08/07/20 06:29 07/15/20 06:09 Loperamide HCl (Imodium) 2 mg Q6H PRN NG Diarrhea 06/24/20 10:30 07/24/20 10:29 07/01/20 11:41 Lorazepam (Ativan 2mg/ml 1ml) 2 mg Q4H PRN IV For Anxiety 07/13/20 00:45 07/20/20 00:44 07/13/20 03:06 Magnesium Sulfate 100 ml @ 100 mls/hr Q1H IVPB 07/15/20 09:30 07/15/20 13:29 Pantoprazole (Protonix) 40 mg EVERY 12 HOURS IVP 07/06/20 21:00 08/05/20 20:59 07/15/20 08:27 Potassium Chloride (K-Dur) 40 meq EVERY 12 HOURS GT 07/04/20 21:00 09/26/20 12:14 07/15/20 08:27 Sodium Chloride 1,000 ml @ 50 mls/hr Q20H IV 07/12/20 11:00 08/11/20 10:59 07/14/20 22:31 Suki Camejo M.D. Jul 15, 2020 10:01
--- NOTE | 2020-07-15 10:24 | General Progress Note ---
Subjective ROS Limited/Unobtainable: No Allergies: Coded Allergies: No Known Allergies (Unverified , 10/16/18) Objective Last 24 Hour Vital Signs Date Time Temp Pulse Resp B/P (MAP) Pulse Ox O2 Delivery O2 Flow Rate FiO2 07/15/20 09:00 66 22 110/49 (69) 94 07/15/20 08:20 50 07/15/20 08:00 98.3 68 21 99/47 (64) 96 07/15/20 08:00 30 07/15/20 08:00 68 07/15/20 08:00 Mechanical Ventilator Mechanical Ventilator Mechanical Ventilator 07/15/20 07:30 68 24 55 07/15/20 07:00 66 21 95/54 (68) 92 07/15/20 06:00 82 24 126/53 (77) 94 07/15/20 05:00 59 24 110/54 (72) 95 07/15/20 04:00 98.2 59 23 99/44 (62) 96 07/15/20 04:00 55 07/15/20 04:00 Mechanical Ventilator Mechanical Ventilator Mechanical Ventilator 07/15/20 04:00 61 07/15/20 03:20 59 24 55 07/15/20 03:00 60 24 104/36 (58) 96 07/15/20 02:00 70 21 127/54 (78) 96 07/15/20 01:00 61 24 119/58 (78) 96 07/15/20 00:00 98.4 62 25 113/52 (72) 95 07/15/20 00:00 55 07/15/20 00:00 Mechanical Ventilator Mechanical Ventilator Mechanical Ventilator 07/15/20 00:00 63 07/14/20 23:53 61 24 55 07/14/20 23:00 65 23 103/48 (66) 97 07/14/20 22:00 68 24 105/52 (69) 94 07/14/20 21:10 64 24 55 07/14/20 21:00 67 25 89/43 (58) 96 07/14/20 20:00 65 07/14/20 20:00 55 07/14/20 20:00 Mechanical Ventilator Mechanical Ventilator Mechanical Ventilator 07/14/20 20:00 98.0 75 27 109/79 (89) 93 07/14/20 19:00 61 24 98/57 (71) 95 07/14/20 18:00 58 25 96/45 (62) 96 07/14/20 17:00 59 22 99/44 (62) 94 07/14/20 16:00 55 07/14/20 16:00 60 07/14/20 16:00 Mechanical Ventilator Mechanical Ventilator Mechanical Ventilator 07/14/20 16:00 98.2 62 25 101/44 (63) 97 07/14/20 15:25 67 24 55 07/14/20 15:00 60 24 101/44 (63) 97 07/14/20 14:00 61 24 120/63 (82) 97 07/14/20 13:00 63 23 117/57 (77) 98 07/14/20 12:00 65 07/14/20 12:00 64 07/14/20 12:00 98.5 65 20 119/50 (73) 96 07/14/20 12:00 Mechanical Ventilator Mechanical Ventilator Mechanical Ventilator 07/14/20 11:32 67 24 65 07/14/20 11:00 64 22 114/48 (70) 98 07/14/20 11:00 62 24 65 Intake and Output 07/14/20 07/15/20 19:00 07:00 Intake Total 1427.776 ml 1100 ml Output Total 820 ml 500 ml Balance 607.776 ml 600 ml Free Water 40 ml 50 ml IV Total 787.776 ml 600 ml Tube Feeding 600 ml 450 ml Output Urine Total 720 ml 500 ml Chest Tube Drainage Total 100 ml # Bowel Movements 2 3 Laboratory Tests 07/14/20 12:13: POC Whole Blood Glucose 128H 07/15/20 00:28: POC Whole Blood Glucose 121H 07/15/20 04:00: White Blood Count 7.5, Red Blood Count 2.35L, Hemoglobin 7.5L, Hematocrit 22.3L, Mean Corpuscular Volume 95, Mean Corpuscular Hemoglobin 32.0H, Mean Corpuscular Hemoglobin Concent 33.7, Red Cell Distribution Width 18.0H, Platelet Count 74L, Mean Platelet Volume 7.7, Neutrophils (%) (Auto) , Lymphocytes (%) (Auto) , Monocytes (%) (Auto) , Eosinophils (%) (Auto) , Basophils (%) (Auto) , Sodium Level 145, Potassium Level 3.7, Chloride Level 111H, Carbon Dioxide Level 26, Anion Gap 8, Blood Urea Nitrogen 16, Creatinine 0.6, Estimat Glomerular Filtration Rate > 60, Glucose Level 156H, Calcium Level 6.9L, Phosphorus Level 2.5, Magnesium Level 1.6L, Total Bilirubin 0.6, Aspartate Amino Transf (AST/SGOT) 18, Alanine Aminotransferase (ALT/SGPT) 19, Alkaline Phosphatase 51, Total Protein 4.4L, Albumin 1.1L, Globulin 3.3, Albumin/Globulin Ratio 0.3L 07/15/20 04:13: POC Whole Blood Glucose 146H 07/15/20 08:06: Arterial Blood pH 7.524H, Arterial Blood Partial Pressure CO2 29.1L, Arterial Blood Partial Pressure O2 100.2H, Arterial Blood HCO3 23.4, Arterial Blood Oxygen Saturation 97.6, Arterial Blood Base Excess 0.9, Jonathan Test Positive Height (Feet): 5 Height (Inches): 3.00 Weight (Pounds): 172 General Appearance: no apparent distress EENT: normal ENT inspection Neck: supple Cardiovascular: normal rate Respiratory/Chest: decreased breath sounds Abdomen: normal bowel sounds, non tender, soft Extremities: non-tender Assessment/Plan Status: stable, not improved, unchanged Assessment/Plan: 1. History of Down syndrome. 2. Dysphagia with G-tube. 3. Seizure disorder. 4. Hypothyroidism. 5. LEANN. 6. Pneumonia. 7. Sepsis. fu H&H prn blood transfusion to keep HGB above 7 ppi GTF hold GI procedures for now pending possible Trach Nehemiah Perez MD Jul 15, 2020 10:24
--- NOTE | 2020-07-15 10:41 | Pulmonolgy Critical Care Note ---
Critical Care - Asmt/Plan Problems: (1) Acute respiratory failure (2) Pneumothorax Assessment & Plan: resolved (3) Bacteremia (4) Pneumonia (5) Sepsis (6) HCAP (healthcare-associated pneumonia) (7) Seizure disorder (8) Down's syndrome (9) Trisomy 21, Down syndrome Respiratory: adjust tidal volume, monitor respiratory rate, adjust FIO2, CXR, ABG Cardiac: continue to monitor HR/BP Renal: F/U I&O, keep IV fluid Infectious Disease: check cultures, continue antibiotics Gastrointestinal: continue feedings/current rate Endocrine: monitor blood sugar Hematologic: monitor H/H, transfuse if hgb<8.5 Neurologic: PRN Ativan, keep patient comfortable Affect: PRN ativan Prophylaxis: Protonix, Heparin Disposition: keep in ICU Time Spent (Minutes): 40 Notes Reviewed: perinatal social worker, cardio, renal, ID Discussed with: nurses, consultants, special education case managerstudio operations manager - Objective Last 24 Hour Vital Signs Date Time Temp Pulse Resp B/P (MAP) Pulse Ox O2 Delivery O2 Flow Rate FiO2 07/15/20 09:00 66 22 110/49 (69) 94 07/15/20 08:20 50 07/15/20 08:00 98.3 68 21 99/47 (64) 96 07/15/20 08:00 30 07/15/20 08:00 68 07/15/20 08:00 Mechanical Ventilator Mechanical Ventilator Mechanical Ventilator 07/15/20 07:30 68 24 55 07/15/20 07:00 66 21 95/54 (68) 92 07/15/20 06:00 82 24 126/53 (77) 94 07/15/20 05:00 59 24 110/54 (72) 95 07/15/20 04:00 98.2 59 23 99/44 (62) 96 07/15/20 04:00 55 07/15/20 04:00 Mechanical Ventilator Mechanical Ventilator Mechanical Ventilator 07/15/20 04:00 61 07/15/20 03:20 59 24 55 07/15/20 03:00 60 24 104/36 (58) 96 07/15/20 02:00 70 21 127/54 (78) 96 07/15/20 01:00 61 24 119/58 (78) 96 07/15/20 00:00 98.4 62 25 113/52 (72) 95 07/15/20 00:00 55 10/7/20 00:00 Mechanical Ventilator Mechanical Ventilator Mechanical Ventilator 07/15/20 00:00 63 07/14/20 23:53 61 24 55 07/14/20 23:00 65 23 103/48 (66) 97 07/14/20 22:00 68 24 105/52 (69) 94 07/14/20 21:10 64 24 55 07/14/20 21:00 67 25 89/43 (58) 96 07/14/20 20:00 65 07/14/20 20:00 55 07/14/20 20:00 Mechanical Ventilator Mechanical Ventilator Mechanical Ventilator 07/14/20 20:00 98.0 75 27 109/79 (89) 93 07/14/20 19:00 61 24 98/57 (71) 95 07/14/20 18:00 58 25 96/45 (62) 96 07/14/20 17:00 59 22 99/44 (62) 94 07/14/20 16:00 55 07/14/20 16:00 60 07/14/20 16:00 Mechanical Ventilator Mechanical Ventilator Mechanical Ventilator 07/14/20 16:00 98.2 62 25 101/44 (63) 97 07/14/20 15:25 67 24 55 07/14/20 15:00 60 24 101/44 (63) 97 07/14/20 14:00 61 24 120/63 (82) 97 07/14/20 13:00 63 23 117/57 (77) 98 07/14/20 12:00 65 07/14/20 12:00 64 07/14/20 12:00 98.5 65 20 119/50 (73) 96 07/14/20 12:00 Mechanical Ventilator Mechanical Ventilator Mechanical Ventilator 07/14/20 11:32 67 24 65 07/14/20 11:00 64 22 114/48 (70) 98 07/14/20 11:00 62 24 65 Status: sedated Condition: critical HEENT: atraumatic Lungs: rales, rhonchi Heart: HR/BP stable Abdomen: soft, non-tender Extremities: no C/C/E Accucheck: 147 Critical Care - Subjective ROS Limited/Unobtainable: Yes Condition: critical EKG Rhythm: Sinus Rhythm FI02: 50 Vent Support Breath Rate: 24 Vent Support Mode: AC Vent Tidal Volume: 500 Sputum Amount: Moderate PEEP: 0.0 PIP: 43 Tube Feeding Amount: 50 I&O: Intake and Output 07/14/20 07/15/20 19:00 07:00 Intake Total 1427.776 ml 1100 ml Output Total 820 ml 500 ml Balance 607.776 ml 600 ml Free Water 40 ml 50 ml IV Total 787.776 ml 600 ml Tube Feeding 600 ml 450 ml Output Urine Total 720 ml 500 ml Chest Tube Drainage Total 100 ml # Bowel Movements 2 3 CXR: Bilateral extensive infiltrates are unchanged. ET-Tube: 7.5 ET Position: 23 Labs: Laboratory Tests Test 07/14/20 12:13 07/15/20 00:28 07/15/20 04:00 07/15/20 04:13 POC Whole Blood Glucose 128 MG/DL (74-106) H 121 MG/DL (74-106) H 146 MG/DL (74-106) H White Blood Count 7.5 K/UL (4.8-10.8) Red Blood Count 2.35 M/UL (4.20-5.40) L Hemoglobin 7.5 G/DL (12.0-16.0) L Hematocrit 22.3 % (37.0-47.0) L Mean Corpuscular Volume 95 FL (80-99) Mean Corpuscular Hemoglobin 32.0 PG (27.0-31.0) H Mean Corpuscular Hemoglobin Concent 33.7 G/DL (32.0-36.0) Red Cell Distribution Width 18.0 % (11.6-14.8) H Platelet Count 74 K/UL (150-450) L Mean Platelet Volume 7.7 FL (6.5-10.1) Neutrophils (%) (Auto) % (45.0-75.0) Lymphocytes (%) (Auto) % (20.0-45.0) Monocytes (%) (Auto) % (1.0-10.0) Eosinophils (%) (Auto) % (0.0-3.0) Basophils (%) (Auto) % (0.0-2.0) Sodium Level 145 MMOL/L (136-145) Potassium Level 3.7 MMOL/L (3.5-5.1) Chloride Level 111 MMOL/L (98-107) H Carbon Dioxide Level 26 MMOL/L (21-32) Anion Gap 8 mmol/L (5-15) Blood Urea Nitrogen 16 mg/dL (7-18) Creatinine 0.6 MG/DL (0.55-1.30) Estimat Glomerular Filtration Rate > 60 mL/min (>60) Glucose Level 156 MG/DL (74-106) H Calcium Level 6.9 MG/DL (8.5-10.1) L Phosphorus Level 2.5 MG/DL (2.5-4.9) Magnesium Level 1.6 MG/DL (1.8-2.4) L Total Bilirubin 0.6 MG/DL (0.2-1.0) Aspartate Amino Transf (AST/SGOT) 18 U/L (15-37) Alanine Aminotransferase (ALT/SGPT) 19 U/L (12-78) Alkaline Phosphatase 51 U/L (46-116) Total Protein 4.4 G/DL (6.4-8.2) L Albumin 1.1 G/DL (3.4-5.0) L Globulin 3.3 g/dL Albumin/Globulin Ratio 0.3 (1.0-2.7) L Test 07/15/20 08:06 Arterial Blood pH 7.524 (7.350-7.450) Arterial Blood Partial Pressure CO2 29.1 mmHg (35.0-45.0) L Arterial Blood Partial Pressure O2 100.2 mmHg (75.0-100.0) H Arterial Blood HCO3 23.4 mmol/L (22.0-26.0) Arterial Blood Oxygen Saturation 97.6 % (95-100) Arterial Blood Base Excess 0.9 (-2-2) Jonathan Test Positive Elayne Allred MD Jul 15, 2020 10:41
--- NOTE | 2020-07-15 12:25 | Internal Med Progress Note ---
Subjective Date of Service: Jul 15, 2020 Physician Name Joni Copeland Attending Physician Elayne Allred MD Current Medications Medications (Trade) Dose Ordered Sig/Katy Route PRN Reason Start Time Stop Time Status Last Admin Dose Admin Acetaminophen (Tylenol) 650 mg Q4H PRN GT For Pain 07/01/20 17:15 07/31/20 17:14 07/10/20 17:46 Chlorhexidine Gluconate (Alla-Hex 2%) 1 applic DAILY@2000 TOPIC 06/08/20 20:00 09/06/20 19:59 07/14/20 20:20 Clotrimazole (Lotrimin) 1 applic Q12HR TOPIC 06/07/20 13:00 09/05/20 12:59 07/15/20 08:28 Dextrose (Dextrose 50%) 25 ml Q30M PRN IV Hypoglycemia 06/03/20 11:30 08/28/20 11:29 Dextrose (Dextrose 50%) 50 ml Q30M PRN IV Hypoglycemia 06/03/20 11:30 08/28/20 11:29 Hydrocortisone (Solu-CORTEF) 50 mg EVERY 12 HOURS IV 07/10/20 21:00 10/04/20 20:59 07/15/20 08:27 Insulin Aspart (NovoLOG) Q6HR SUBQ 06/26/20 12:00 09/24/20 11:59 07/15/20 12:20 Insulin Detemir (Levemir) 10 units Q12HR SUBQ 06/26/20 10:00 09/24/20 09:59 07/15/20 09:07 Levothyroxine Sodium (Synthroid) 75 mcg DAILY@0630 GT 07/08/20 06:30 08/07/20 06:29 07/15/20 06:09 Loperamide HCl (Imodium) 2 mg Q6H PRN NG Diarrhea 06/24/20 10:30 07/24/20 10:29 07/01/20 11:41 Lorazepam (Ativan 2mg/ml 1ml) 2 mg Q4H PRN IV For Anxiety 07/13/20 00:45 07/20/20 00:44 07/13/20 03:06 Magnesium Sulfate 100 ml @ 100 mls/hr Q1H IVPB 07/15/20 09:30 07/15/20 13:29 07/15/20 12:18 Pantoprazole (Protonix) 40 mg EVERY 12 HOURS IVP 07/06/20 21:00 08/05/20 20:59 07/15/20 08:27 Potassium Chloride (K-Dur) 40 meq EVERY 12 HOURS GT 07/04/20 21:00 09/26/20 12:14 07/15/20 08:27 Sodium Chloride 1,000 ml @ 50 mls/hr Q20H IV 07/12/20 11:00 08/11/20 10:59 07/14/20 22:31 Allergies: Coded Allergies: No Known Allergies (Unverified , 10/16/18) ROS Limited/Unobtainable: Yes Subjective 59 YO F with Down's syndrome admitted with hypoxia. Now sepsis and pneumonia. Cover for Int Med-DR [place]. ICU. Intubated and sedated Objective Last Vital Signs Date Time Temp Pulse Resp B/P (MAP) Pulse Ox O2 Delivery O2 Flow Rate FiO2 07/15/20 11:00 62 28 115/56 (75) 95 07/15/20 08:20 50 07/15/20 08:00 98.3 07/15/20 08:00 Mechanical Ventilator Mechanical Ventilator Mechanical Ventilator Laboratory Tests Test 07/15/20 00:28 07/15/20 04:00 07/15/20 04:13 07/15/20 08:06 POC Whole Blood Glucose 121 MG/DL (74-106) H 146 MG/DL (74-106) H White Blood Count 7.5 K/UL (4.8-10.8) Red Blood Count 2.35 M/UL (4.20-5.40) L Hemoglobin 7.5 G/DL (12.0-16.0) L Hematocrit 22.3 % (37.0-47.0) L Mean Corpuscular Volume 95 FL (80-99) Mean Corpuscular Hemoglobin 32.0 PG (27.0-31.0) H Mean Corpuscular Hemoglobin Concent 33.7 G/DL (32.0-36.0) Red Cell Distribution Width 18.0 % (11.6-14.8) H Platelet Count 74 K/UL (150-450) L Mean Platelet Volume 7.7 FL (6.5-10.1) Neutrophils (%) (Auto) % (45.0-75.0) Lymphocytes (%) (Auto) % (20.0-45.0) Monocytes (%) (Auto) % (1.0-10.0) Eosinophils (%) (Auto) % (0.0-3.0) Basophils (%) (Auto) % (0.0-2.0) Sodium Level 145 MMOL/L (136-145) Potassium Level 3.7 MMOL/L (3.5-5.1) Chloride Level 111 MMOL/L (98-107) H Carbon Dioxide Level 26 MMOL/L (21-32) Anion Gap 8 mmol/L (5-15) Blood Urea Nitrogen 16 mg/dL (7-18) Creatinine 0.6 MG/DL (0.55-1.30) Estimat Glomerular Filtration Rate > 60 mL/min (>60) Glucose Level 156 MG/DL (74-106) H Calcium Level 6.9 MG/DL (8.5-10.1) L Phosphorus Level 2.5 MG/DL (2.5-4.9) Magnesium Level 1.6 MG/DL (1.8-2.4) L Total Bilirubin 0.6 MG/DL (0.2-1.0) Aspartate Amino Transf (AST/SGOT) 18 U/L (15-37) Alanine Aminotransferase (ALT/SGPT) 19 U/L (12-78) Alkaline Phosphatase 51 U/L (46-116) Total Protein 4.4 G/DL (6.4-8.2) L Albumin 1.1 G/DL (3.4-5.0) L Globulin 3.3 g/dL Albumin/Globulin Ratio 0.3 (1.0-2.7) L Arterial Blood pH 7.524 (7.350-7.450) Arterial Blood Partial Pressure CO2 29.1 mmHg (35.0-45.0) L Arterial Blood Partial Pressure O2 100.2 mmHg (75.0-100.0) H Arterial Blood HCO3 23.4 mmol/L (22.0-26.0) Arterial Blood Oxygen Saturation 97.6 % (95-100) Arterial Blood Base Excess 0.9 (-2-2) Jonathan Test Positive Intake and Output 07/14/20 07/15/20 19:00 07:00 Intake Total 1427.776 ml 1100 ml Output Total 820 ml 500 ml Balance 607.776 ml 600 ml Free Water 40 ml 50 ml IV Total 787.776 ml 600 ml Tube Feeding 600 ml 450 ml Output Urine Total 720 ml 500 ml Chest Tube Drainage Total 100 ml # Bowel Movements 2 3 Objective General Appearance: WD/WN, no apparent distress, alert EENT: PERRL/EOMI, normal ENT inspection Neck: non-tender, normal alignment, supple, normal inspection Cardiovascular: normal peripheral pulses, normal rate, regular rhythm, no gall op/murmur, no JVD Respiratory/Chest: Mech vent; decreased breath sounds, crackles/rales, rhonchi - bilaterally, expiratory wheezing Abdomen: normal bowel sounds, non tender, soft, no organomegaly, no mass Extremities: normal range of motion 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 S/P amikacin per ID=Dr Camejo. Pulmonary/Critical care=DR Allred. COVID NEG (2) Sepsis Assessment & Plan: Staph haemolyticus. S/P amikacin per ID=Dr Camejo (3) Down's syndrome (4) Dysphagia Assessment & Plan: S/P PEG (5) Seizure disorder Assessment & Plan: Continue keppra and depakote (6) Hypothyroidism Assessment & Plan: Continue synthroid (7) Acute respiratory failure Assessment & Plan: Pulmonary = Dr Allred; mech vent (8) Pneumothorax, right Assessment & Plan: Continue chest tube per pulmonary (9) Cardiac arrest Assessment & Plan: 06/03/20-see cardiology note=Joni Lord MD Jul 15, 2020 12:25
--- NOTE | 2020-07-15 13:24 | Diagnostic Imaging Report ---
Indication: Dyspnea Technique: One view of the chest Comparison: 07/14/2020 Findings: Stable satisfactory position of endotracheal tube, left chest vent catheter, left arm PICC. Bilateral infiltrates are unchanged. There is no pneumothorax. Impression: Unchanged, over one day, findings as above.
--- NOTE | 2020-07-15 14:31 | Surgery Progress Note ---
Surgery Progress Note Subjective Additional Comments plan trach tomorrow AM fi02 50% more comfortable Objective Last 24 Hour Vital Signs Date Time Temp Pulse Resp B/P (MAP) Pulse Ox O2 Delivery O2 Flow Rate FiO2 07/15/20 14:00 57 32 105/47 (66) 95 07/15/20 13:00 55 25 104/45 (64) 95 07/15/20 12:00 50 07/15/20 12:00 68 07/15/20 12:00 68 26 113/59 (77) 93 07/15/20 12:00 Mechanical Ventilator Mechanical Ventilator Mechanical Ventilator 07/15/20 11:00 62 28 115/56 (75) 95 07/15/20 10:00 65 24 123/53 (76) 94 07/15/20 10:00 65 27 123/53 (76) 95 07/15/20 09:00 66 22 110/49 (69) 94 07/15/20 08:20 50 07/15/20 08:00 98.3 68 21 99/47 (64) 96 07/15/20 08:00 50 07/15/20 08:00 68 07/15/20 08:00 Mechanical Ventilator Mechanical Ventilator Mechanical Ventilator 07/15/20 07:30 68 24 55 07/15/20 07:00 66 21 95/54 (68) 92 07/15/20 06:00 82 24 126/53 (77) 94 07/15/20 05:00 59 24 110/54 (72) 95 07/15/20 04:00 98.2 59 23 99/44 (62) 96 07/15/20 04:00 55 07/15/20 04:00 Mechanical Ventilator Mechanical Ventilator Mechanical Ventilator 07/15/20 04:00 61 07/15/20 03:20 59 24 55 07/15/20 03:00 60 24 104/36 (58) 96 07/15/20 02:00 70 21 127/54 (78) 96 07/15/20 01:00 61 24 119/58 (78) 96 07/15/20 00:00 98.4 62 25 113/52 (72) 95 07/15/20 00:00 55 07/15/20 00:00 Mechanical Ventilator Mechanical Ventilator Mechanical Ventilator 07/15/20 00:00 63 07/14/20 23:53 61 24 55 07/14/20 23:00 65 23 103/48 (66) 97 07/14/20 22:00 68 24 105/52 (69) 94 07/14/20 21:10 64 24 55 07/14/20 21:00 67 25 89/43 (58) 96 07/14/20 20:00 65 07/14/20 20:00 55 07/14/20 20:00 Mechanical Ventilator Mechanical Ventilator Mechanical Ventilator 07/14/20 20:00 98.0 75 27 109/79 (89) 93 07/14/20 19:00 61 24 98/57 (71) 95 07/14/20 18:00 58 25 96/45 (62) 96 07/14/20 17:00 59 22 99/44 (62) 94 07/14/20 16:00 55 07/14/20 16:00 60 07/14/20 16:00 Mechanical Ventilator Mechanical Ventilator Mechanical Ventilator 07/14/20 16:00 98.2 62 25 101/44 (63) 97 07/14/20 15:25 67 24 55 07/14/20 15:00 60 24 101/44 (63) 97 I&O Intake and Output 07/14/20 07/15/20 19:00 07:00 Intake Total 1427.776 ml 1100 ml Output Total 820 ml 500 ml Balance 607.776 ml 600 ml Free Water 40 ml 50 ml IV Total 787.776 ml 600 ml Tube Feeding 600 ml 450 ml Output Urine Total 720 ml 500 ml Chest Tube Drainage Total 100 ml # Bowel Movements 2 3 Dressing: other Wound: other Cardiovascular: RSR Respiratory: decreased breath sounds Abdomen: soft, non-tender, present bowel sounds Extremities: no tenderness, no cyanosis Laboratory Tests Test 07/15/20 00:28 07/15/20 04:00 07/15/20 04:13 07/15/20 08:06 POC Whole Blood Glucose 121 MG/DL (74-106) H 146 MG/DL (74-106) H White Blood Count 7.5 K/UL (4.8-10.8) Red Blood Count 2.35 M/UL (4.20-5.40) L Hemoglobin 7.5 G/DL (12.0-16.0) L Hematocrit 22.3 % (37.0-47.0) L Mean Corpuscular Volume 95 FL (80-99) Mean Corpuscular Hemoglobin 32.0 PG (27.0-31.0) H Mean Corpuscular Hemoglobin Concent 33.7 G/DL (32.0-36.0) Red Cell Distribution Width 18.0 % (11.6-14.8) H Platelet Count 74 K/UL (150-450) L Mean Platelet Volume 7.7 FL (6.5-10.1) Neutrophils (%) (Auto) % (45.0-75.0) Lymphocytes (%) (Auto) % (20.0-45.0) Monocytes (%) (Auto) % (1.0-10.0) Eosinophils (%) (Auto) % (0.0-3.0) Basophils (%) (Auto) % (0.0-2.0) Sodium Level 145 MMOL/L (136-145) Potassium Level 3.7 MMOL/L (3.5-5.1) Chloride Level 111 MMOL/L (98-107) H Carbon Dioxide Level 26 MMOL/L (21-32) Anion Gap 8 mmol/L (5-15) Blood Urea Nitrogen 16 mg/dL (7-18) Creatinine 0.6 MG/DL (0.55-1.30) Estimat Glomerular Filtration Rate > 60 mL/min (>60) Glucose Level 156 MG/DL (74-106) H Calcium Level 6.9 MG/DL (8.5-10.1) L Phosphorus Level 2.5 MG/DL (2.5-4.9) Magnesium Level 1.6 MG/DL (1.8-2.4) L Total Bilirubin 0.6 MG/DL (0.2-1.0) Aspartate Amino Transf (AST/SGOT) 18 U/L (15-37) Alanine Aminotransferase (ALT/SGPT) 19 U/L (12-78) Alkaline Phosphatase 51 U/L (46-116) Total Protein 4.4 G/DL (6.4-8.2) L Albumin 1.1 G/DL (3.4-5.0) L Globulin 3.3 g/dL Albumin/Globulin Ratio 0.3 (1.0-2.7) L Arterial Blood pH 7.524 (7.350-7.450) Arterial Blood Partial Pressure CO2 29.1 mmHg (35.0-45.0) L Arterial Blood Partial Pressure O2 100.2 mmHg (75.0-100.0) H Arterial Blood HCO3 23.4 mmol/L (22.0-26.0) Arterial Blood Oxygen Saturation 97.6 % (95-100) Arterial Blood Base Excess 0.9 (-2-2) Jonathan Test Positive Plan Problems: (1) Respiratory distress Assessment & Plan: Respiratory insufficiency requiring prolonged ventilator support. Patient on minimal vent settings right now currently in stable but unfortunately not safe for extubation. Tracheostomy is indicated recommended. I discussed case with pulmonology team ICU team medical teams. Patient unable to make decisions and her current condition and given her history. The care team has been contacted and will be reviewed for evaluation and consideration of the tracheostomy. If consented I think it is reasonable for tracheostomy given patient's current CODE STATUS care plan and goals of care. Extubation his current status is potentially high risk for reintubation emergency complication. We will plan for tracheostomy if consent is obtained. Thank you for let me participate patient's care will follow with recommendations will plan for trach when ready wean fi02 (2) Encephalopathy chronic (3) Dysphagia (4) Down's syndrome (5) Sepsis (6) Acute respiratory failure (7) Pneumonia (8) Trisomy 21, Down syndrome (9) LEANN (acute kidney injury) (10) Bacteremia (11) Hypokalemia (12) Anemia (13) Diarrhea (14) Hypernatremia (15) Pneumothorax (16) Pneumothorax, right Assessment & Plan: right ptx. s/p chest tube tube removed / left ptx tube placed / (17) Cardiac arrest (18) ARDS (adult respiratory distress syndrome) (19) Septic shock (20) HCAP (healthcare-associated pneumonia) (21) Respiratory failure requiring intubation (22) Seizure disorder (23) Hypothyroidism Mark Gordon Jul 15, 2020 14:31
--- NOTE | 2020-07-15 15:26 | Anethesia Preoperative Eval ---
Anesthesia Pre-op PMH/ROS General Date of Evaluation: Jul 15, 2020 Time of Evaluation: 15:25 Anesthesiologist: carol ASA Score: ASA 4 Mallampati Score Class I : Soft palate, uvula, fauces, pillars visible Class II: Soft palate, uvula, fauces visible Class III: Soft palate, base of uvula visible Class IV: Only hard plate visible Mallampati Classification: Class III Surgeon: Evan Diagnosis: Resp Failure Surgical Procedure: Tracheostomy Anesthesia History: none Family History: no anesthesia problems Allergies: Coded Allergies: No Known Allergies (Unverified , 10/16/18) Medications: see eMAR Patient NPO?: Yes NPO Date: Jul 15, 2020 NPO Time: 00:01 Past Medical History Cardiovascular: Reports: HTN, CAD, other Pulmonary: Reports: other - covid neg; pneumonia; Resp Failure; Denies: asthma, COPD, GAMAL Gastrointestinal/Genitourinary: Reports: GERD, CRI, other - Dysphagia; Denies: ESRD Neurologic/Psychiatric: Reports: other - Downs Syndrome; Denies: dementia, CVA, depression/anxiety, TIA Endocrine: Reports: hypothyroidism HEENT: Denies: cataract (L), cataract (R), glaucoma, [place] (L), [place] (R), other Hematology/Immune: Reports: anemia Musculoskeletal/Integumentary: Reports: other - Seizure ; Denies: OA, RA, DJD, DDD, edema PMH Narrative: (1) HCAP (healthcare-associated pneumonia) (2) Se (3) Down's syndrome (4) Dysphagia Assessment & Plan: S/P PEG (5) Seizure disorder (6) Hypothyroidism (7) Acute respiratory failure (8) Pneumothorax, right (9) Cardiac arrest Assessment & Plan: 06/03/20-see cardiology note=Dr Pantoja PSxH Narrative: unknown Anesthesia Pre-op Phys. Exam Physician Exam Last Vital Signs Date Time Temp Pulse Resp B/P (MAP) Pulse Ox O2 Delivery O2 Flow Rate FiO2 07/15/20 15:00 56 28 94/46 (62) 94 07/15/20 12:00 50 07/15/20 12:00 Mechanical Ventilator Mechanical Ventilator Mechanical Ventilator 07/15/20 08:00 98.3 Constitutional: other - Resp Failure; Neurologic: other Cardiovascular: RRR Respiratory: other - Intubated Airway Exam Mallampati Classification 7.0 ETT orally intubated Mallampati Score: Class III MO: limited ROM: limited Dentures: no upper, no lower Anesthesia Pre-op A/P Labs Hematology Test 07/15/20 04:00 White Blood Count 7.5 K/UL (4.8-10.8) Red Blood Count 2.35 M/UL (4.20-5.40) L Hemoglobin 7.5 G/DL (12.0-16.0) L Hematocrit 22.3 % (37.0-47.0) L Mean Corpuscular Volume 95 FL (80-99) Mean Corpuscular Hemoglobin 32.0 PG (27.0-31.0) H Mean Corpuscular Hemoglobin Concent 33.7 G/DL (32.0-36.0) Red Cell Distribution Width 18.0 % (11.6-14.8) H Platelet Count 74 K/UL (150-450) L Mean Platelet Volume 7.7 FL (6.5-10.1) Neutrophils (%) (Auto) % (45.0-75.0) Lymphocytes (%) (Auto) % (20.0-45.0) Monocytes (%) (Auto) % (1.0-10.0) Eosinophils (%) (Auto) % (0.0-3.0) Basophils (%) (Auto) % (0.0-2.0) Chemistry Test 07/15/20 00:28 07/15/20 04:00 07/15/20 04:13 POC Whole Blood Glucose 121 MG/DL (74-106) H 146 MG/DL (74-106) H Sodium Level 145 MMOL/L (136-145) Potassium Level 3.7 MMOL/L (3.5-5.1) Chloride Level 111 MMOL/L (98-107) H Carbon Dioxide Level 26 MMOL/L (21-32) Anion Gap 8 mmol/L (5-15) Blood Urea Nitrogen 16 mg/dL (7-18) Creatinine 0.6 MG/DL (0.55-1.30) Estimat Glomerular Filtration Rate > 60 mL/min (>60) Glucose Level 156 MG/DL (74-106) H Calcium Level 6.9 MG/DL (8.5-10.1) L Phosphorus Level 2.5 MG/DL (2.5-4.9) Magnesium Level 1.6 MG/DL (1.8-2.4) L Total Bilirubin 0.6 MG/DL (0.2-1.0) Aspartate Amino Transf (AST/SGOT) 18 U/L (15-37) Alanine Aminotransferase (ALT/SGPT) 19 U/L (12-78) Alkaline Phosphatase 51 U/L (46-116) Total Protein 4.4 G/DL (6.4-8.2) L Albumin 1.1 G/DL (3.4-5.0) L Globulin 3.3 g/dL Albumin/Globulin Ratio 0.3 (1.0-2.7) L Risk Assessment & Plan Assessment: Reassess in am Plan: Karina Martinez CRNA Jul 15, 2020 15:26
--- NOTE | 2020-07-15 16:31 | NUR ---
MAXILLOFACIAL PROSTHETICS DENTISTCHORUS DANCER SI; RESP FAILURE ETT/VENT SUPPORT T. 98.3 HR 68 RR 28 B/P 123/83 AC 24 TV 500 FIO2 50% H/H 7.5/22.3 CA 6.9 MG 1.6 IS: IVF NS 2 50ML/HR SOLU CORTEF IV K-PHOS IV MAGNESIUM IV ICU STATUS
--- NOTE | 2020-07-15 19:45 | NUR ---
NURSE NOTES: Received patient from Leora LUJAN. patient in bed, Sinus rafael at this time HR 46. Orally intubated with ordered vent settings noted at this time. Left Thora Vent connected to LIS draining Serous fluid. JODY picc line running 1/2 NS @50. Left lower chest dressing dry and intact. GT feeding Vital AF @50 with no residual noted at this time. Gregorio cath draining by gravity. Bed in lowest positions at this time. Patient is to be NPO at midnight for Trach tomorrow. No signs of distress noted will continue to monitor.
--- NOTE | 2020-07-15 19:46 | Cardiology Progress Note ---
Assessment/Plan Assessment/Plan sepsis respiratory failure ards renal insuf bacteremia abn cardiac enzyme due to demand sinus rafael stable thrombocytopenia resolved hypernatremia pneumothorax now s/p chest tube on the left now vent support abx tsh seems fine remains off pressor still at this time hr inthe 60's s no sig pauses on tele tele personally reviewed left thoravent trach plans 07/16 bp better still sig secretions no on 60% Subjective ROS Limited/Unobtainable: Yes Subjective on a vent not communicative not AWAKE Objective Last 24 Hour Vital Signs Date Time Temp Pulse Resp B/P (MAP) Pulse Ox O2 Delivery O2 Flow Rate FiO2 07/15/20 19:24 52 24 50 07/15/20 19:24 65 07/15/20 19:00 52 24 108/45 (66) 95 07/15/20 18:00 24 108/45 (66) 91 07/15/20 17:00 63 27 117/53 (74) 95 07/15/20 16:00 98.5 61 22 116/53 (74) 92 07/15/20 16:00 50 07/15/20 16:00 61 07/15/20 16:00 Mechanical Ventilator Mechanical Ventilator Mechanical Ventilator 07/15/20 15:00 56 28 94/46 (62) 94 07/15/20 14:59 66 24 50 07/15/20 14:00 57 32 105/47 (66) 95 07/15/20 13:00 55 25 104/45 (64) 95 07/15/20 12:00 50 07/15/20 12:00 68 07/15/20 12:00 68 26 113/59 (77) 93 07/15/20 12:00 Mechanical Ventilator Mechanical Ventilator Mechanical Ventilator 07/15/20 11:08 61 24 50 07/15/20 11:00 62 28 115/56 (75) 95 07/15/20 10:00 65 24 123/53 (76) 94 07/15/20 10:00 65 27 123/53 (76) 95 07/15/20 09:00 66 22 110/49 (69) 94 07/15/20 08:20 50 07/15/20 08:00 98.3 68 21 99/47 (64) 96 07/15/20 08:00 50 07/15/20 08:00 68 07/15/20 08:00 Mechanical Ventilator Mechanical Ventilator Mechanical Ventilator 07/15/20 07:30 68 24 55 07/15/20 07:00 66 21 95/54 (68) 92 07/15/20 06:00 82 24 126/53 (77) 94 07/15/20 05:00 59 24 110/54 (72) 95 07/15/20 04:00 98.2 59 23 99/44 (62) 96 07/15/20 04:00 55 07/15/20 04:00 Mechanical Ventilator Mechanical Ventilator Mechanical Ventilator 07/15/20 04:00 61 07/15/20 03:20 59 24 55 07/15/20 03:00 60 24 104/36 (58) 96 07/15/20 02:00 70 21 127/54 (78) 96 07/15/20 01:00 61 24 119/58 (78) 96 07/15/20 00:00 98.4 62 25 113/52 (72) 95 07/15/20 00:00 55 07/15/20 00:00 Mechanical Ventilator Mechanical Ventilator Mechanical Ventilator 07/15/20 00:00 63 07/14/20 23:53 61 24 55 07/14/20 23:00 65 23 103/48 (66) 97 07/14/20 22:00 68 24 105/52 (69) 94 07/14/20 21:10 64 24 55 07/14/20 21:00 67 25 89/43 (58) 96 07/14/20 20:00 65 07/14/20 20:00 55 07/14/20 20:00 Mechanical Ventilator Mechanical Ventilator Mechanical Ventilator 07/14/20 20:00 98.0 75 27 109/79 (89) 93 General Appearance: no apparent distress, alert, on vent, patient on isolation, isolation precautions Neck: supple Cardiovascular: normal rate Respiratory/Chest: rhonchi - bilaterally Abdomen: normal bowel sounds, non tender, soft Extremities: no swelling Intake and Output 07/14/20 07/15/20 19:00 07:00 Intake Total 1427.776 ml 1100 ml Output Total 820 ml 500 ml Balance 607.776 ml 600 ml Free Water 40 ml 50 ml IV Total 787.776 ml 600 ml Tube Feeding 600 ml 450 ml Output Urine Total 720 ml 500 ml Chest Tube Drainage Total 100 ml # Bowel Movements 2 3 Laboratory Tests Test 07/15/20 00:28 07/15/20 04:00 07/15/20 04:13 07/15/20 08:06 POC Whole Blood Glucose 121 MG/DL (74-106) H 146 MG/DL (74-106) H White Blood Count 7.5 K/UL (4.8-10.8) Red Blood Count 2.35 M/UL (4.20-5.40) L Hemoglobin 7.5 G/DL (12.0-16.0) L Hematocrit 22.3 % (37.0-47.0) L Mean Corpuscular Volume 95 FL (80-99) Mean Corpuscular Hemoglobin 32.0 PG (27.0-31.0) H Mean Corpuscular Hemoglobin Concent 33.7 G/DL (32.0-36.0) Red Cell Distribution Width 18.0 % (11.6-14.8) H Platelet Count 74 K/UL (150-450) L Mean Platelet Volume 7.7 FL (6.5-10.1) Neutrophils (%) (Auto) % (45.0-75.0) Lymphocytes (%) (Auto) % (20.0-45.0) Monocytes (%) (Auto) % (1.0-10.0) Eosinophils (%) (Auto) % (0.0-3.0) Basophils (%) (Auto) % (0.0-2.0) Sodium Level 145 MMOL/L (136-145) Potassium Level 3.7 MMOL/L (3.5-5.1) Chloride Level 111 MMOL/L (98-107) H Carbon Dioxide Level 26 MMOL/L (21-32) Anion Gap 8 mmol/L (5-15) Blood Urea Nitrogen 16 mg/dL (7-18) Creatinine 0.6 MG/DL (0.55-1.30) Estimat Glomerular Filtration Rate > 60 mL/min (>60) Glucose Level 156 MG/DL (74-106) H Calcium Level 6.9 MG/DL (8.5-10.1) L Phosphorus Level 2.5 MG/DL (2.5-4.9) Magnesium Level 1.6 MG/DL (1.8-2.4) L Total Bilirubin 0.6 MG/DL (0.2-1.0) Aspartate Amino Transf (AST/SGOT) 18 U/L (15-37) Alanine Aminotransferase (ALT/SGPT) 19 U/L (12-78) Alkaline Phosphatase 51 U/L (46-116) Total Protein 4.4 G/DL (6.4-8.2) L Albumin 1.1 G/DL (3.4-5.0) L Globulin 3.3 g/dL Albumin/Globulin Ratio 0.3 (1.0-2.7) L Arterial Blood pH 7.524 (7.350-7.450) Arterial Blood Partial Pressure CO2 29.1 mmHg (35.0-45.0) L Arterial Blood Partial Pressure O2 100.2 mmHg (75.0-100.0) H Arterial Blood HCO3 23.4 mmol/L (22.0-26.0) Arterial Blood Oxygen Saturation 97.6 % (95-100) Arterial Blood Base Excess 0.9 (-2-2) Jonathan Test Positive Microbiology Date/Time Source Procedure Growth Status 07/13/20 13:30 Urine,Clean Catch Urine Culture - Preliminary Gram Negative Bacillus 1 Resulted 07/13/20 13:30 Sputum Gram Stain - Final Resulted 07/13/20 13:30 Sputum Culture - Preliminary Gram Negative Bacillus 1 Usual Respiratory Yvonne Resulted Josue Pantoja MD Jul 15, 2020 19:46
[2020-07-15] MEDS: Dyna-Hex 2% Top Sol 2oz TOPIC SCH (20:04)
--- NOTE | 2020-07-15 21:00 | NUR ---
NURSE NOTES: Received patient from TAI Perez. Patient resting in bed with no acute distress. Patient AOx0 with episodes of confusion; presents with spontaneous eye opening; able to track with eyes. Attached to monitor; vitals stable to baseline. Sinus rafael 55. Mechanically vented; ETT 7.5 at 24 cm at the lip; AC 30 TV 500 PEEP 5 FIO2 50%. Left chest thoravac noted; draining to intermittent suction. GT flushed and patent; no residual noted; Vital AF running at 50cc/hr. Aspiration precautions observed. HOB raised >30 degrees. Left upper arm PICC noted; 1/2NS infusing at 50 ml/hr. Bilateral wrist restraints noted; patient free from injury. Gregorio noted; draining well to gravity Seizure precautions observed; side rails padded. All safety measures met; bed locked at lowest position; bed alarm set to zone 2; side rails raised x3; call light within reach.
--- NOTE | 2020-07-15 21:53 | NUR ---
NURSE HAND-OFF REPORT: Latest Vital Signs: Temperature 98.3 , Pulse 55 , B/P 135 /60 , Respiratory Rate 24 , O2 SAT 99 , Mechanical Ventilator, O2 Flow Rate 15.0 . Vital Sign Comment: EKG Rhythm: Sinus Rhythm Rhythm change?: N MD Notified?: N- MD aware of SB MD Response: Latest Osorio Fall Score: 70 Fall Risk: High Risk Safety Measures: Call light Within Reach, Bed Alarm Zone 1, Side Rails Side Rails x3, Bed position Low and Locked. Fall Precautions: Yellow Socks Report given to Baron GRESHAM RN Informed RN patient is to be NPO at Midnight for trach placement tomorrow
[2020-07-16] VITALS (28 sets, daily range): BP systolic 83–139; BP diastolic 40–76
--- NOTE | 2020-07-16 | NUR ---
NURSE NOTES: Partial bed bath provided. Patient remains free from injury. Axillary temp 98.5F. Accucheck 159; 2 units of insulin given. D/C feeding; patient NPO after midnight for pending procedure. Signed consent noted; consent in chart.
--- NOTE | 2020-07-16 02:00 | NUR ---
NURSE NOTES: Patient sleeping in bed with no signs of acute distress. Vitals stable to baseline. Will continue to monitor.
--- NOTE | 2020-07-16 04:00 | NUR ---
NURSE NOTES: AM labs drawn via PICC Line; sent down to lab.
[2020-07-16 05:06] LABS: HEMATOCRIT 23.6 % (37.0-47.0); HEMOGLOBIN 7.7 G/DL (12.0-16.0); MEAN CORPUSCULAR VOLUME 96 FL (80-99); PLATELET COUNT 70 K/UL (150-450); RED BLOOD COUNT 2.46 M/UL (4.20-5.40); RED CELL DISTRIBUTION WIDTH 17.8 % (11.6-14.8); WHITE BLOOD COUNT 6.8 K/UL (4.8-10.8)
[2020-07-16 05:47] LABS: ALANINE AMINOTRANSFERASE 34 U/L (12-78); ALBUMIN 1.2 G/DL (3.4-5.0); ALBUMIN/GLOBULIN RATIO 0.4 (1.0-2.7); ALKALINE PHOSPHATASE 69 U/L (46-116); ANION GAP 6 mmol/L (5-15); BILIRUBIN,TOTAL 0.7 MG/DL (0.2-1.0); BLOOD UREA NITROGEN 14 mg/dL (7-18); CALCIUM 7.1 MG/DL (8.5-10.1); CARBON DIOXIDE 25 MMOL/L (21-32); CHLORIDE 110 MMOL/L (98-107); CREATININE 0.6 MG/DL (0.55-1.30); POTASSIUM 3.6 MMOL/L (3.5-5.1); SODIUM 141 MMOL/L (136-145)
[2020-07-16] MEDS: NovoLOG Insulin Flexpen SUBQ SCH ×3 (06:00→18:00)
--- NOTE | 2020-07-16 06:00 | NUR ---
NURSE NOTES: Accucheck 95; no coverage needed. Total thoravent drainage for shift 45cc.
[2020-07-16 06:03] LABS: ASPARTATE AMINO TRANSFERASE 22 U/L (15-37)
--- NOTE | 2020-07-16 06:15 | NUR ---
CASE MANAGEMENT: REVIEW SI: ARDS . RESP FAILURE . DOWN'S SYNDROME . PNEUMOTHORAX TRACHEOSTOMY 07/16 RIGHT CHEST TUBE 07/10 T 98.5 HR 50 RR 25 BP 133/55 SAT 90% MECH VENT FIO2 65 H/H 7.7/23.6 GLUCOSE 158 ABG: PH 7.524 PCO2 29.1 PO2 100.2 HCO3 23.4 IS: NS IVF @ 50ML/HR SOLU CORTEF IV Q12HR PROTONIX IV Q12HR ICU STATUS DCP: PATIENT IS FROM [facility]
--- NOTE | 2020-07-16 08:00 | NUR ---
NURSE NOTES: spoke with CRISTINA caicedo. patient scheduled for tracheostomy with md eliecer at 1200. preopchecklist completed. patient remains NPO since midnight.
[2020-07-16] MEDS: Hydrocortisone 100mg Inj IV SCH ×2 (08:02→21:10)
[2020-07-16] MEDS: Pantoprazole Inj IVP SCH ×2 (08:03→21:10)
[2020-07-16] MEDS: Levemir Flexpen SUBQ SCH ×2 (08:04→21:19)
--- NOTE | 2020-07-16 09:59 | Nephrology Progress Note ---
Assessment/Plan Problem List: (1) LEANN (acute kidney injury) (2) Respiratory failure requiring intubation (3) Down's syndrome (4) Seizure disorder (5) Hypothyroidism Assessment Acute renal failure, likely due to hypotension Acute respiratory distress, hypoxia Seizure disorder Hypothyroidism Down syndrome Full code Fluid challenge with IV fluids and albumin Midodrine for BP above 100 systolic Check TSH level Check Correct level Monitor renal parameters Urine studies Per orders Plan July 16: Discussed with RN. Remains on ventilator. Labs reviewed. Stable from renal standpoint of view. Patient due for tracheostomy when clinically stable. July 15: On ventilator. Left chest tube remains. Full code. Labs reviewed. Electrolyte abnormalities addressed. Continue per consultants. July 14: On ventilator. Tracheostomy postponed because patient is clinically unstable. Still have left chest tube draining. Labs reviewed. Electrolyte abnormalities addressed. Continue per consultants. July 13: Remains intubated on ventilator. Discussed with RN. Unclear if the patient is due for tracheostomy today or not. Apparently the patient was reintubated again yesterday. Patient has left chest tube. Electrolyte abnormalities addressed. July 12: Remains intubated on ventilator. Due for tracheostomy tomorrow. Left chest tube present. Patient is full code. Labs reviewed. Continue as is. July 11: Remains intubated on ventilator. Due for tracheostomy July 13. Has left-sided chest tube. Stable from renal standpoint to view. Continue per consultants. July 10: Remains intubated on ventilator. Electrolyte abnormalities addressed. Supplements ordered. July 09: Intubated on ventilator. Labs reviewed. Potassium supplement given. Remains bradycardic. Continue per consultants. July 08: Labs reviewed. Electrolyte abnormalities addressed. Heart rate remains bradycardic. Continue per cardiology. Continue to monitor renal parameters and electrolytes. July 07: Labs reviewed. Electrolyte abnormalities addressed and replaced. Medication list reviewed. Heart rate remains mid 50s. Continue as is. July 06: On ventilator. Full code. Heart rate low. Will discontinue Midodrin. Continue to rest. Electrolytes within normal limit. Discussed with RN. July 05: Remains intubated. Full code. No plan for tracheostomy yet. Labs reviewed. All acceptable. Continue same management July 04: Labs reviewed. Discussed with RN. Potassium and phosphorus and magnesium replacement ordered. Hemoglobin 9.5. Patient remains full code. Continue per consultants. July 03: Lab reviewed. Renal parameters stable. Full code. Intubated. Electrolyte abnormalities addressed and replacement done. July 02: Lab reviewed. Renal parameters stable. Full code. Intubated. Has right side chest tube. Continue per consultants. July 01: Lab reviewed. Renal parameters stable. Full code. Has right chest tube. Planning process for tracheostomy. Defer to chest and general surgeon. June 30: Labs reviewed. Renal parameters stable. Remains full code. Remains on ventilator. Due for tracheostomy tomorrow. Continue per consultants. Patient has a right chest tube in place at this time. June 29: Labs reviewed. Electrolyte imbalances addressed and supplemented. Remains full code and on ventilator. Continue to monitor renal parameters. Continue per consultants. June 28: Labs reviewed. Serum potassium again low today. Potassium supplement IV and through GT given. Patient remains full code and is on ventilator. Continue per consultants. Continue to monitor electrolytes and renal parameters. June 27: Labs reviewed. Abnormal electrolyte addressed. Remains full code. Remains vented. June 26: Day 27 of hospitalization. Full code. Labs reviewed. Hemoglobin down to 7.5. Electrolyte abnormalities addressed and corrections ordered. Continue to monitor renal parameters. Continue per consultants. Start on Levemir for blood sugar management. Questioning continuation of hydrocortisone? June 25: Labs reviewed. Potassium, phosphorus, hemoglobin, are all low. Potassium and phosphorus IV replacement given. Continue to monitor electrolytes and CBC. Patient remains full code. June 24: Lab reviewed. Low phosphorus low magnesium and low potassium was addressed. Hemoglobin drifting lower. Continue per consultants. Patient remains full code. June 23: Labs reviewed. Patient continues to be on ventilator. D5W for high sodium and also potassium chloride intravenously as supplement given. Hemoglobin 8.4. Continue to monitor electrolytes and renal parameters. June 22: Labs reviewed. Low potassium and high sodium noted. Hemoglobin 8.1 stable. Aim to correct abnormal electrolyte. Continue rest. Will give 2 boluses of D5W 500 cc. June 21: Lab reviewed. Abnormal electrolytes noted and addressed. June 20: Labs reviewed. Potassium supplement given. Patient remains full code. Continue per consultants. June 19: Lab reviewed. Electrolyte abnormalities addressed. Continue per pulmonary and ID. June 18: Lab reviewed. Status unchanged. Serum sodium 151 unchanged. Stable from renal standpoint of view. June 17: Labs reviewed. Status quo. D5W 500 cc IV ordered. Continue to monitor renal parameters. June 16: Status quo. Labs reviewed. Overall condition unchanged. Patient was transfused and hemoglobin higher. Continue current management. Patient r beulah full code. June 15: Status quo. Overall condition poor. Very low albumin. Edematous. Hypotensive. Hemoglobin lower. Anemia work-up ordered. I favor transfusion 2 units of packed RBCs. Patient remains full code. I favor supportive care only. Will discuss. June 14: Electrolyte abnormalities addressed. Serum creatinine lower. Continue per current management. June 13: Status unchanged. Lab reviewed. Serum potassium 2.7. IV potassium chloride ordered. Serum creatinine low at 1.6 stable. Blood pressure 90s systolic June 12: Status quo. Labs reviewed. Renal parameters stable. Serum creatinine down to 1.6. Medication list reviewed. Continues to be on midodrine. Continue per consultants. June 11: Status quo. Labs reviewed. Electrolytes adjusted. Serum creatinine down to 1.8. Continue per consultants. June 10: Status quo. Labs reviewed. Phosphorus supplement IV given. Serum creatinine 2. Continue per consultants. June 09: Requires less pressors. Albumin bolus given. 1 dose of Lasix IV ordered as the patient severely edematous. Patient serum albumin is very low. Continue per consultants. June 08: Continues to be intubated. Labs reviewed. Serum creatinine 1.9 unchanged. Blood pressure more stable. Off 1 of the pressors. Continue to monitor renal parameters. Continue per consultants. Patient now on hydrocortisone 100 mg every 8 hours. Will decrease IV fluid. Normal saline down to 50 cc an hour. June 07: Intubated. Labs reviewed. Creatinine 1.9 unchanged. Continue same treatment plan. Per consultants. Overall poor prognosis since the patient remains on pressors and her pulmonary status is worsening. June 06: Remains intubated. Labs reviewed. Creatinine 1.9. Blood pressure systolic 90s. Continue per consultants. June 05: Remains intubated. Labs reviewed. Serum creatinine lower to 2. Vancomycin level lower. Remains hypotensive on pressors. Will increase midodrine to 10 mg every 8 hours. Continue per consultants. Continue to mon itor renal parameters. June 04: Patient now in ICU. Intubated. On pressors. Labs reviewed. Will increase midodrine. Aim to keep blood pressure over 100 systolic. Will give albumin bolus. Will check vancomycin level which was elevated when checked previously on June 01. Will monitor renal parameters. Continue per consultants. Subjective ROS Limited/Unobtainable: Yes Objective Objective Last 24 Hour Vital Signs Date Time Temp Pulse Resp B/P (MAP) Pulse Ox O2 Delivery O2 Flow Rate FiO2 07/16/20 09:00 56 22 116/47 (70) 95 07/16/20 08:00 98.7 52 25 125/54 (77) 97 07/16/20 08:00 59 07/16/20 08:00 Mechanical Ventilator Mechanical Ventilator Mechanical Ventilator 07/16/20 08:00 30 07/16/20 07:44 63 24 65 07/16/20 07:00 56 21 127/43 (71) 99 07/16/20 06:00 53 20 136/55 (82) 90 07/16/20 05:00 53 21 129/53 (78) 96 07/16/20 04:00 30 07/16/20 04:00 52 07/16/20 04:00 Mechanical Ventilator Mechanical Ventilator Mechanical Ventilator 07/16/20 04:00 98.5 50 21 128/66 (86) 95 07/16/20 03:10 53 24 65 07/16/20 03:00 50 22 133/55 (81) 97 07/16/20 02:00 53 25 139/62 (87) 97 07/16/20 01:00 53 25 130/57 (81) 96 07/16/20 00:00 Mechanical Ventilator Mechanical Ventilator Mechanical Ventilator 07/16/20 00:00 54 07/16/20 00:00 30 07/16/20 00:00 98.5 59 24 127/53 (77) 99 07/15/20 23:00 55 24 130/56 (80) 97 07/15/20 23:00 59 24 65 07/15/20 22:00 60 18 134/58 (83) 98 07/15/20 21:00 55 24 135/60 (85) 99 07/15/20 20:00 30 07/15/20 20:00 Mechanical Ventilator Mechanical Ventilator Mechanical Ventilator 07/15/20 20:00 54 07/15/20 20:00 98.3 54 24 113/50 (71) 99 07/15/20 19:24 52 24 50 07/15/20 19:24 65 07/15/20 19:00 52 24 108/45 (66) 95 07/15/20 18:00 24 108/45 (66) 91 07/15/20 17:00 63 27 117/53 (74) 95 07/15/20 16:00 98.5 61 22 116/53 (74) 92 07/15/20 16:00 50 07/15/20 16:00 61 07/15/20 16:00 Mechanical Ventilator Mechanical Ventilator Mechanical Ventilator 07/15/20 15:00 56 28 94/46 (62) 94 07/15/20 14:59 66 24 50 07/15/20 14:00 57 32 105/47 (66) 95 07/15/20 13:00 55 25 104/45 (64) 95 07/15/20 12:00 50 07/15/20 12:00 68 07/15/20 12:00 68 26 113/59 (77) 93 07/15/20 12:00 Mechanical Ventilator Mechanical Ventilator Mechanical Ventilator 07/15/20 11:08 61 24 50 07/15/20 11:00 62 28 115/56 (75) 95 07/15/20 10:00 65 24 123/53 (76) 94 07/15/20 10:00 65 27 123/53 (76) 95 Intake and Output 07/15/20 07/16/20 18:59 06:59 Intake Total 1400 ml 1110 ml Output Total 705 ml 750 ml Balance 695 ml 360 ml Free Water 160 ml IV Total 800 ml 550 ml Tube Feeding 600 ml 300 ml Other 100 ml Output Urine Total 700 ml 750 ml Chest Tube Drainage Total 5 ml # Voids 60 # Bowel Movements 4 3 Laboratory Tests 07/16/20 04:00: White Blood Count 6.8, Red Blood Count 2.46L, Hemoglobin 7.7L, Hematocrit 23.6L, Mean Corpuscular Volume 96, Mean Corpuscular Hemoglobin 31.4H, Mean Corpuscular Hemoglobin Concent 32.7, Red Cell Distribution Width 17.8H, Platelet Count 70L, Mean Platelet Volume 7.6, Neutrophils (%) (Auto) , Lymphocytes (%) (Auto) , Monocytes (%) (Auto) , Eosinophils (%) (Auto) , Basophils (%) (Auto) , Prothrombin Time 11.3, Prothromb Time International Ratio 1.0, Activated Partial Thromboplast Time 28, Sodium Level 141, Potassium Level 3.6, Chloride Level 110H , Carbon Dioxide Level 25, Anion Gap 6, Blood Urea Nitrogen 14, Creatinine 0.6, Estimat Glomerular Filtration Rate > 60, Glucose Level 158H, Calcium Level 7.1L, Total Bilirubin 0.7, Aspartate Amino Transf (AST/SGOT) 22, Alanine Aminotransferase (ALT/SGPT) 34, Alkaline Phosphatase 69, Total Protein 4.5L, Albumin 1.2L, Globulin 3.3, Albumin/Globulin Ratio 0.4L Height (Feet): 5 Height (Inches): 3.00 Weight (Pounds): 173 General Appearance: no apparent distress EENT: other - Intubated on ventilator Cardiovascular: normal rate Respiratory/Chest: decreased breath sounds Abdomen: distended Keron Pitt MD Jul 16, 2020 09:59
--- NOTE | 2020-07-16 10:00 | NUR ---
NURSE NOTES: performed oral care and suctioned patient. patient presents with thick clear secretions. repositioned for comfort.
--- NOTE | 2020-07-16 11:10 | NUR ---
NURSE NOTES: Report received from Baron Squires RN. Afebrile. Patient is awake and confused. Continued bilateral soft restraints. Opens eyes spontaneously. Non-verbal. Unable to follow commands. SB 50's on panel monitor. ETT 7.5/24, AC 24, TV 500, FiO2 65%. O2 sat 98-100%. Small clear thick secretion noted from mouth. GT in place and kept NPO for tracheostomy today. Gregorio in place draining to gravity. JODY PICC line patent and asymptomatic. 1/2NS is running at 50cc/hr. Bed in lowest position. Side rails up x3. Will resume plan fo care. Addendum: 07/16/20 at 1221 by DARREL MEI RN RN NURSE NOTES: Report received from Baron Squires RN. Afebrile. Patient is awake and confused. Continued bilateral soft restraints. Opens eyes spontaneously. Non-verbal. Unable to follow commands. SB 50's on panel monitor. ETT 7.5/24, AC 24, TV 500, FiO2 65%. O2 sat 96-98%. Small clear thick secretion noted from mouth. Left chest ThoraVent is connected to intermittent suction as per order, draining serous fluid. GT in place and kept NPO for tracheostomy today. Gregorio in place draining to gravity. JODY PICC line patent and asymptomatic. 1/2NS is running at 50cc/hr. Bed in lowest position. Side rails up x3. Will resume plan fo care.
[2020-07-16] MEDS ORDERED: Rocuronium Bromide 50mg/5ml Inj IV ONE (11:19)
[2020-07-16] MEDS ORDERED: fentaNYL 100 mcg/2 mL IV ONE (11:22)
--- NOTE | 2020-07-16 11:30 | Pulmonolgy Critical Care Note ---
Critical Care - Asmt/Plan Problems: (1) Acute respiratory failure (2) Pneumothorax Assessment & Plan: resolved, left Chest tube still in. (3) Bacteremia (4) Pneumonia (5) Sepsis (6) HCAP (healthcare-associated pneumonia) (7) Seizure disorder (8) Down's syndrome (9) Trisomy 21, Down syndrome Respiratory: monitor respiratory rate, adjust FIO2, CXR Cardiac: continue to monitor HR/BP Renal: F/U I&O, keep IV fluid, check electrolytes Infectious Disease: check cultures, continue antibiotics Gastrointestinal: continue feedings/current rate Hematologic: monitor H/H, transfuse if hgb<8.5 Neurologic: PRN Ativan, PRN Morphine, keep patient comfortable Affect: PRN ativan Disposition: keep in ICU Time Spent (Minutes): 40 Notes Reviewed: straw baler, cardio, 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 with: nurses, consultants, assistant case managerstudio operations manager - Objective Last 24 Hour Vital Signs Date Time Temp Pulse Resp B/P (MAP) Pulse Ox O2 Delivery O2 Flow Rate FiO2 07/16/20 11:00 56 24 126/66 (86) 97 07/16/20 10:00 53 21 125/55 (78) 97 07/16/20 09:00 56 22 116/47 (70) 95 07/16/20 08:00 98.7 52 25 125/54 (77) 97 07/16/20 08:00 59 07/16/20 08:00 Mechanical Ventilator Mechanical Ventilator Mechanical Ventilator 07/16/20 08:00 65 07/16/20 07:44 63 24 65 07/16/20 07:00 56 21 127/43 (71) 99 07/16/20 06:00 53 20 136/55 (82) 90 07/16/20 05:00 53 21 129/53 (78) 96 07/16/20 04:00 30 07/16/20 04:00 52 07/16/20 04:00 Mechanical Ventilator Mechanical Ventilator Mechanical Ventilator 07/16/20 04:00 98.5 50 21 128/66 (86) 95 07/16/20 03:10 53 24 65 07/16/20 03:00 50 22 133/55 (81) 97 07/16/20 02:00 53 25 139/62 (87) 97 07/16/20 01:00 53 25 130/57 (81) 96 07/16/20 00:00 Mechanical Ventilator Mechanical Ventilator Mechanical Ventilator 07/16/20 00:00 54 07/16/20 00:00 30 07/16/20 00:00 98.5 59 24 127/53 (77) 99 07/15/20 23:00 55 24 130/56 (80) 97 07/15/20 23:00 59 24 65 07/15/20 22:00 60 18 134/58 (83) 98 07/15/20 21:00 55 24 135/60 (85) 99 07/15/20 20:00 30 07/15/20 20:00 Mechanical Ventilator Mechanical Ventilator Mechanical Ventilator 07/15/20 20:00 54 07/15/20 20:00 98.3 54 24 113/50 (71) 99 07/15/20 19:24 52 24 50 07/15/20 19:24 65 07/15/20 19:00 52 24 108/45 (66) 95 07/15/20 18:00 24 108/45 (66) 91 07/15/20 17:00 63 27 117/53 (74) 95 07/15/20 16:00 98.5 61 22 116/53 (74) 92 07/15/20 16:00 50 07/15/20 16:00 61 07/15/20 16:00 Mechanical Ventilator Mechanical Ventilator Mechanical Ventilator 07/15/20 15:00 56 28 94/46 (62) 94 07/15/20 14:59 66 24 50 07/15/20 14:00 57 32 105/47 (66) 95 07/15/20 13:00 55 25 104/45 (64) 95 07/15/20 12:00 50 07/15/20 12:00 68 07/15/20 12:00 68 26 113/59 (77) 93 07/15/20 12:00 Mechanical Ventilator Mechanical Ventilator Mechanical Ventilator Status: sedated Condition: critical HEENT: atraumatic, normocephalic Lungs: rales, rhonchi Heart: HR/BP stable Abdomen: soft, non-tender, feeding tube Extremities: no C/C/E, edema Decubiti: location Micro: Microbiology Date/Time Source Procedure Growth Status 07/13/20 13:30 Urine,Clean Catch Urine Culture - Final Pseudomonas Aeruginosa Complete 07/13/20 13:30 Sputum Gram Stain - Final Complete 07/13/20 13:30 Sputum Culture - Final Proteus Mirabilis Usual Respiratory Yvonne Complete Accucheck: 95 Critical Care - Subjective ROS Limited/Unobtainable: Yes EKG Rhythm: Sinus Rhythm FI02: 65 Vent Support Breath Rate: 24 Vent Support Mode: AC Vent Tidal Volume: 500 Sputum Amount: Moderate PEEP: 0.0 PIP: 38 Tube Feeding Amount: 50 I&O: Intake and Output 07/15/20 07/16/20 18:59 06:59 Intake Total 1400 ml 1110 ml Output Total 705 ml 750 ml Balance 695 ml 360 ml Free Water 160 ml IV Total 800 ml 550 ml Tube Feeding 600 ml 300 ml Other 100 ml Output Urine Total 700 ml 750 ml Chest Tube Drainage Total 5 ml # Voids 60 # Bowel Movements 4 3 CXR: Bilateral infiltrates are unchanged. ET-Tube: 7.5 ET Position: 23 Labs: Laboratory Tests Test 07/16/20 04:00 White Blood Count 6.8 K/UL (4.8-10.8) Red Blood Count 2.46 M/UL (4.20-5.40) L Hemoglobin 7.7 G/DL (12.0-16.0) L Hematocrit 23.6 % (37.0-47.0) L Mean Corpuscular Volume 96 FL (80-99) Mean Corpuscular Hemoglobin 31.4 PG (27.0-31.0) H Mean Corpuscular Hemoglobin Concent 32.7 G/DL (32.0-36.0) Red Cell Distribution Width 17.8 % (11.6-14.8) H Platelet Count 70 K/UL (150-450) L Mean Platelet Volume 7.6 FL (6.5-10.1) Neutrophils (%) (Auto) % (45.0-75.0) Lymphocytes (%) (Auto) % (20.0-45.0) Monocytes (%) (Auto) % (1.0-10.0) Eosinophils (%) (Auto) % (0.0-3.0) Basophils (%) (Auto) % (0.0-2.0) Prothrombin Time 11.3 SEC (9.30-11.50) Prothromb Time International Ratio 1.0 (0.9-1.1) Activated Partial Thromboplast Time 28 SEC (23-33) Sodium Level 141 MMOL/L (136-145) Potassium Level 3.6 MMOL/L (3.5-5.1) Chloride Level 110 MMOL/L (98-107) H Carbon Dioxide Level 25 MMOL/L (21-32) Anion Gap 6 mmol/L (5-15) Blood Urea Nitrogen 14 mg/dL (7-18) Creatinine 0.6 MG/DL (0.55-1.30) Estimat Glomerular Filtration Rate > 60 mL/min (>60) Glucose Level 158 MG/DL (74-106) H Calcium Level 7.1 MG/DL (8.5-10.1) L Total Bilirubin 0.7 MG/DL (0.2-1.0) Aspartate Amino Transf (AST/SGOT) 22 U/L (15-37) Alanine Aminotransferase (ALT/SGPT) 34 U/L (12-78) Alkaline Phosphatase 69 U/L (46-116) Total Protein 4.5 G/DL (6.4-8.2) L Albumin 1.2 G/DL (3.4-5.0) L Globulin 3.3 g/dL Albumin/Globulin Ratio 0.4 (1.0-2.7) L Elayne Allred MD Jul 16, 2020 11:30
[2020-07-16] MEDS ORDERED: Lidocaine 1% 10mg/ml/Epi 0.005mg/ml 30ml vial INJ ONE (11:34)
[2020-07-16] MEDS ORDERED: Sterile Water Irrig 1000ml IRRIG ONE (12:00)
[2020-07-16] MEDS ORDERED: 1/2 NS 1000ml IV ONE (12:00)
[2020-07-16] MEDS ORDERED: NS Irrig 1000ml ONE (12:00)
--- NOTE | 2020-07-16 12:00 | NUR ---
NURSE NOTES: Clenaed patient for 1 small amount of brown loose BM. Patient was transferred to OR for tracheostomy.
--- NOTE | 2020-07-16 12:26 | General Progress Note ---
Subjective ROS Limited/Unobtainable: No Allergies: Coded Allergies: No Known Allergies (Unverified , 10/16/18) Objective Last 24 Hour Vital Signs Date Time Temp Pulse Resp B/P (MAP) Pulse Ox O2 Delivery O2 Flow Rate FiO2 07/16/20 12:00 65 07/16/20 11:50 98.5 65 24 126/66 (86) 98 07/16/20 11:42 62 24 65 07/16/20 11:10 Mechanical Ventilator Mechanical Ventilator Mechanical Ventilator 07/16/20 11:00 56 24 126/66 (86) 97 07/16/20 10:00 53 21 125/55 (78) 97 07/16/20 09:00 56 22 116/47 (70) 95 07/16/20 08:00 98.7 52 25 125/54 (77) 97 07/16/20 08:00 59 07/16/20 08:00 Mechanical Ventilator Mechanical Ventilator Mechanical Ventilator 07/16/20 08:00 65 07/16/20 07:44 63 24 65 07/16/20 07:00 56 21 127/43 (71) 99 07/16/20 06:00 53 20 136/55 (82) 90 07/16/20 05:00 53 21 129/53 (78) 96 07/16/20 04:00 30 07/16/20 04:00 52 07/16/20 04:00 Mechanical Ventilator Mechanical Ventilator Mechanical Ventilator 07/16/20 04:00 98.5 50 21 128/66 (86) 95 07/16/20 03:10 53 24 65 07/16/20 03:00 50 22 133/55 (81) 97 07/16/20 02:00 53 25 139/62 (87) 97 07/16/20 01:00 53 25 130/57 (81) 96 07/16/20 00:00 Mechanical Ventilator Mechanical Ventilator Mechanical Ventilator 07/16/20 00:00 54 07/16/20 00:00 30 07/16/20 00:00 98.5 59 24 127/53 (77) 99 07/15/20 23:00 55 24 130/56 (80) 97 07/15/20 23:00 59 24 65 07/15/20 22:00 60 18 134/58 (83) 98 07/15/20 21:00 55 24 135/60 (85) 99 07/15/20 20:00 30 07/15/20 20:00 Mechanical Ventilator Mechanical Ventilator Mechanical Ventilator 07/15/20 20:00 54 07/15/20 20:00 98.3 54 24 113/50 (71) 99 07/15/20 19:24 52 24 50 07/15/20 19:24 65 07/15/20 19:00 52 24 108/45 (66) 95 07/15/20 18:00 24 108/45 (66) 91 07/15/20 17:00 63 27 117/53 (74) 95 07/15/20 16:00 98.5 61 22 116/53 (74) 92 07/15/20 16:00 50 07/15/20 16:00 61 07/15/20 16:00 Mechanical Ventilator Mechanical Ventilator Mechanical Ventilator 07/15/20 15:00 56 28 94/46 (62) 94 07/15/20 14:59 66 24 50 07/15/20 14:00 57 32 105/47 (66) 95 07/15/20 13:00 55 25 104/45 (64) 95 Intake and Output 07/15/20 07/16/20 19:00 07:00 Intake Total 1400 ml 1110 ml Output Total 765 ml 795 ml Balance 635 ml 315 ml Free Water 160 ml IV Total 750 ml 600 ml Tube Feeding 650 ml 250 ml Other 100 ml Output Urine Total 760 ml 750 ml Chest Tube Drainage Total 5 ml 45 ml # Voids 60 # Bowel Movements 4 3 Laboratory Tests 07/16/20 04:00: White Blood Count 6.8, Red Blood Count 2.46L, Hemoglobin 7.7L, Hematocrit 23.6L, Mean Corpuscular Volume 96, Mean Corpuscular Hemoglobin 31.4H, Mean Corpuscular Hemoglobin Concent 32.7, Red Cell Distribution Width 17.8H, Platelet Count 70L, Mean Platelet Volume 7.6, Neutrophils (%) (Auto) , Lymphocytes (%) (Auto) , Monocytes (%) (Auto) , Eosinophils (%) (Auto) , Basophils (%) (Auto) , Prothrombin Time 11.3, Prothromb Time International Ratio 1.0, Activated Partial Thromboplast Time 28, Sodium Level 141, Potassium Level 3.6, Chloride Level 110H , Carbon Dioxide Level 25, Anion Gap 6, Blood Urea Nitrogen 14, Creatinine 0.6, Estimat Glomerular Filtration Rate > 60, Glucose Level 158H, Calcium Level 7.1L, Total Bilirubin 0.7, Aspartate Amino Transf (AST/SGOT) 22, Alanine Aminotransferase (ALT/SGPT) 34, Alkaline Phosphatase 69, Total Protein 4.5L, Albumin 1.2L, Globulin 3.3, Albumin/Globulin Ratio 0.4L Height (Feet): 5 Height (Inches): 3.00 Weight (Pounds): 173 General Appearance: no apparent distress EENT: normal ENT inspection Neck: supple Cardiovascular: normal rate Respiratory/Chest: decreased breath sounds Abdomen: normal bowel sounds, non tender, soft Extremities: non-tender Assessment/Plan Status: stable, not improved, unchanged Assessment/Plan: 1. History of Down syndrome. 2. Dysphagia with G-tube. 3. Seizure disorder. 4. Hypothyroidism. 5. LEANN. 6. Pneumonia. 7. Sepsis. fu H&H prn blood transfusion to keep HGB above 7 ppi GTF hold GI procedures for now pending possible Trach Nehemiah Perez MD Jul 16, 2020 12:26
--- NOTE | 2020-07-16 12:36 | Pre-Procedure Note/Attestation ---
Pre-Procedure Note/Attestation Complete Prior to Procedure Procedure Narrative: tracheostomy Indications for Procedure Pre-Operative Diagnosis: respirator insufficiency Attestation I attest that I discussed the nature of the procedure; its benefits; risks and complications; and alternatives (and the risks and benefits of such alternatives), prior to the procedure, with the patient (or the patient's legal hardware supplies sales representative). I attest that, if there was a reasonable possibility of needing a blood transfusion, the patient (or the patient's legal hardware supplies sales representative) was given the [facility] standardized written summary, pursuant to the [place] Blood Safety Act ([place] Health and Safety Code # 1645, as amended). I attest that I re-evaluated the patient just prior to the surgery and that there has been no change in the patient's H&P, except as documented below: Mark Gordon Jul 16, 2020 12:36
--- NOTE | 2020-07-16 12:45 | NUR ---
NURSE NOTES: Patient came back from OR with tracheostomy. No bleeding noted. Shiley 8 with the same vent setting. O2 sat 98%, RR 34. BP 83/40. Dr Day aware. Reconnected chest tube, IV, and monitor. Repositioned patient. Patient is still sedated.
--- NOTE | 2020-07-16 12:50 | Immediate Post-Op Evaluation ---
Immediate Post-Op Evalulation Immediate Post-Op Evalulation Procedure: Tracheostomy Date of Evaluation: Jul 16, 2020 Time of Evaluation: 12:49 IV Fluids: 100 Blood Products: none Estimated Blood Loss: min Urinary Output: none Blood Pressure Systolic: 95 Blood Pressure Diastolic: 52 Pulse Rate: 64 Respiratory Rate: 16 O2 Sat by Pulse Oximetry: 99 Temperature (Fahrenheit): 97.4 Pain Score (1-10): 1 Nausea: No Vomiting: No Complications none Patient Status: no response, ventilated, none Hydration Status: adequate Blayne Day MD Jul 16, 2020 12:50
--- NOTE | 2020-07-16 13:20 | NUR ---
NURSE NOTES: STAT CXR done at bedside.
--- NOTE | 2020-07-16 14:26 | NUR ---
RADIOLOGY DEPT., CHEST X-RAY DONE.-P.DYE
--- NOTE | 2020-07-16 15:04 | Diagnostic Imaging Report ---
Indication: Dyspnea Technique: One view of the chest Comparison: 07/15/2020 Findings: Left chest vent catheter is again demonstrated. No pneumothorax. Tracheostomy, left arm PICC, bilateral infiltrates are all unchanged. Impression: Unchanged, over one day, findings as above.
--- NOTE | 2020-07-16 15:38 | NUR ---
NURSE NOTES: Patient is awake and resting in bed. O2 sat 100% on FiO 2 65%. BP 108/73, HR 51, RR 29. Will continue to monitor.
--- NOTE | 2020-07-16 16:15 | Surgery Progress Note ---
Surgery Progress Note Subjective Procedure Performed Tracheostomy Additional Comments trach today Objective Last 24 Hour Vital Signs Date Time Temp Pulse Resp B/P (MAP) Pulse Ox O2 Delivery O2 Flow Rate FiO2 07/16/20 15:29 52 24 65 07/16/20 15:00 52 22 106/54 (71) 100 07/16/20 14:00 55 22 94/53 (67) 95 07/16/20 13:45 56 22 91/41 (58) 95 07/16/20 13:30 57 30 98/53 (68) 94 07/16/20 13:15 62 20 88/56 (67) 96 07/16/20 13:00 62 20 88/56 (67) 96 07/16/20 13:00 59 31 84/43 (57) 97 07/16/20 12:50 64 16 99 07/16/20 12:45 65 07/16/20 12:45 58 83/40 (54) 07/16/20 12:45 Mechanical Ventilator Mechanical Ventilator Mechanical Ventilator 07/16/20 12:00 65 07/16/20 12:00 56 07/16/20 11:50 98.5 65 24 126/66 (86) 98 07/16/20 11:42 62 24 65 07/16/20 11:10 Mechanical Ventilator Mechanical Ventilator Mechanical Ventilator 07/16/20 11:00 56 24 126/66 (86) 97 07/16/20 10:00 53 21 125/55 (78) 97 07/16/20 09:00 56 22 116/47 (70) 95 07/16/20 08:00 98.7 52 25 125/54 (77) 97 07/16/20 08:00 59 07/16/20 08:00 Mechanical Ventilator Mechanical Ventilator Mechanical Ventilator 07/16/20 08:00 65 07/16/20 07:44 63 24 65 07/16/20 07:00 56 21 127/43 (71) 99 07/16/20 06:00 53 20 136/55 (82) 90 07/16/20 05:00 53 21 129/53 (78) 96 07/16/20 04:00 30 07/16/20 04:00 52 07/16/20 04:00 Mechanical Ventilator Mechanical Ventilator Mechanical Ventilator 07/16/20 04:00 98.5 50 21 128/66 (86) 95 07/16/20 03:10 53 24 65 07/16/20 03:00 50 22 133/55 (81) 97 07/16/20 02:00 53 25 139/62 (87) 97 07/16/20 01:00 53 25 130/57 (81) 96 07/16/20 00:00 Mechanical Ventilator Mechanical Ventilator Mechanical Ventilator 07/16/20 00:00 54 07/16/20 00:00 30 07/16/20 00:00 98.5 59 24 127/53 (77) 99 07/15/20 23:00 55 24 130/56 (80) 97 07/15/20 23:00 59 24 65 07/15/20 22:00 60 18 134/58 (83) 98 07/15/20 21:00 55 24 135/60 (85) 99 07/15/20 20:00 30 07/15/20 20:00 Mechanical Ventilator Mechanical Ventilator Mechanical Ventilator 07/15/20 20:00 54 07/15/20 20:00 98.3 54 24 113/50 (71) 99 07/15/20 19:24 52 24 50 07/15/20 19:24 65 07/15/20 19:00 52 24 108/45 (66) 95 07/15/20 18:00 24 108/45 (66) 91 07/15/20 17:00 63 27 117/53 (74) 95 I&O Intake and Output 07/15/20 07/16/20 19:00 07:00 Intake Total 1400 ml 1110 ml Output Total 765 ml 795 ml Balance 635 ml 315 ml Free Water 160 ml IV Total 750 ml 600 ml Tube Feeding 650 ml 250 ml Other 100 ml Output Urine Total 760 ml 750 ml Chest Tube Drainage Total 5 ml 45 ml # Voids 60 # Bowel Movements 4 3 Laboratory Tests Test 07/16/20 04:00 White Blood Count 6.8 K/UL (4.8-10.8) Red Blood Count 2.46 M/UL (4.20-5.40) L Hemoglobin 7.7 G/DL (12.0-16.0) L Hematocrit 23.6 % (37.0-47.0) L Mean Corpuscular Volume 96 FL (80-99) Mean Corpuscular Hemoglobin 31.4 PG (27.0-31.0) H Mean Corpuscular Hemoglobin Concent 32.7 G/DL (32.0-36.0) Red Cell Distribution Width 17.8 % (11.6-14.8) H Platelet Count 70 K/UL (150-450) L Mean Platelet Volume 7.6 FL (6.5-10.1) Neutrophils (%) (Auto) % (45.0-75.0) Lymphocytes (%) (Auto) % (20.0-45.0) Monocytes (%) (Auto) % (1.0-10.0) Eosinophils (%) (Auto) % (0.0-3.0) Basophils (%) (Auto) % (0.0-2.0) Prothrombin Time 11.3 SEC (9.30-11.50) Prothromb Time International Ratio 1.0 (0.9-1.1) Activated Partial Thromboplast Time 28 SEC (23-33) Sodium Level 141 MMOL/L (136-145) Potassium Level 3.6 MMOL/L (3.5-5.1) Chloride Level 110 MMOL/L (98-107) H Carbon Dioxide Level 25 MMOL/L (21-32) Anion Gap 6 mmol/L (5-15) Blood Urea Nitrogen 14 mg/dL (7-18) Creatinine 0.6 MG/DL (0.55-1.30) Estimat Glomerular Filtration Rate > 60 mL/min (>60) Glucose Level 158 MG/DL (74-106) H Calcium Level 7.1 MG/DL (8.5-10.1) L Total Bilirubin 0.7 MG/DL (0.2-1.0) Aspartate Amino Transf (AST/SGOT) 22 U/L (15-37) Alanine Aminotransferase (ALT/SGPT) 34 U/L (12-78) Alkaline Phosphatase 69 U/L (46-116) Total Protein 4.5 G/DL (6.4-8.2) L Albumin 1.2 G/DL (3.4-5.0) L Globulin 3.3 g/dL Albumin/Globulin Ratio 0.4 (1.0-2.7) L Plan Problems: (1) Respiratory distress Assessment & Plan: Respiratory insufficiency requiring prolonged ventilator support. Patient on minimal vent settings right now currently in stable but unfortunately not safe for extubation. Tracheostomy is indicated recommended. I discussed case with pulmonology team ICU team medical teams. Patient unable to make decisions and her current condition and given her history. The care team has been contacted and will be reviewed for evaluation and consideration of the tracheostomy. If consented I think it is reasonable for tracheostomy given patient's current CODE STATUS care plan and goals of care. Extubation his current status is potentially high risk for reintubation emergency complication. We will plan for tracheostomy if consent is obtained. Thank you for let me participate patient's care will follow with recommendations will plan for trach when ready wean fi02 (2) Encephalopathy chronic (3) Dysphagia (4) Down's syndrome (5) Sepsis (6) Acute respiratory failure (7) Pneumonia (8) Trisomy 21, Down syndrome (9) LEANN (acute kidney injury) (10) Bacteremia (11) Hypokalemia (12) Anemia (13) Diarrhea (14) Hypernatremia (15) Pneumothorax (16) Pneumothorax, right Assessment & Plan: right ptx. s/p chest tube tube removed 07/11 left ptx tube placed 07/10 (17) Cardiac arrest (18) ARDS (adult respiratory distress syndrome) (19) Septic shock (20) HCAP (healthcare-associated pneumonia) (21) Respiratory failure requiring intubation (22) Seizure disorder (23) Hypothyroidism Mark Gordon Jul 16, 2020 16:15
--- NOTE | 2020-07-16 16:15 | Operative Note - PDOC ---
Operative Note Operative Note Date of Operation/Procedure: Jul 16, 2020 Pre-op Diagnosis: respirator insufficiency Procedure: Tracheostomy Post-op Diagnosis: same as pre-op Surgeon: Mark Gordon MD Anesthesiologist: Horace Day MD Anesthesia: general, local Specimen: none Complications: none Condition: stable Fluids: none Estimated Blood Loss: minimal Drains: none Implant(s) used?: No Indications for Procedure 60 female Risser insufficiency intubated prolonged period time multiple re- intubations unable to wean safely tracheostomy indicated recommended consent obtained from caregivers patient scheduled once stable Description of Procedure Patient was taken directly from the intensive care unit to the operating room placed on the hospital bed in the supine position all bony parts well padded. Shoulder was placed in the neck was hyper extended. Neck was prepped draped and sent surgical fashion. Anesthesiologist was present and provided general anesthesia and assistance with removal of the current ET tube. Chest tube was in place and patient was optimized prior to coming to the operating room. Proper timeout taken identifying the patient procedure operating room staff and surgical staff. Neck was prepped and draped in the same surgical fashion. Local anesthetic was infiltrated throughout the procedure for patient's comfort. Small skin incision was made 2 cm above the sternal notch and carried through the subcutaneous tissue and the platysma down to the median raphae. The median raphae was divided the strap muscles mobilized laterally. Trachea was identified and trach hook was placed. For second and third tracheal rings were identified and dissected clearly. Window was made between the first and second tracheal rings and the ET tube was identified. With assistance his anesthesiologist ET tube was slowly withdrawn to above the window and a 8 [place] Shiley tracheostomy tube was inserted under direct visualization without complication. Balloon of the tracheostomy was insufflated and patient was ventilated through the tracheostomy with good end-tidal CO2 and volumes. The lateral portions of the incision were reapproximated using 3-0 Monocryl sutures. Trach tie and dressings were applied. Patient taught procedure well was taken to the intensive care unit in stable condition. Mark Gordon Jul 16, 2020 16:15
--- NOTE | 2020-07-16 17:00 | NUR ---
NURSE NOTES: Started tube feeding at a low rate as per Dr Perez's order. O2 sat 100% on FiO2 65%. RR 26-27. No bleeding from trach site. No respiratory distress noted.
--- NOTE | 2020-07-16 17:45 | NUR ---
NURSE NOTES: BS 70. 120cc of orange juice given as per protocol. Will recheck sugar in 15 minutes.
--- NOTE | 2020-07-16 18:00 | NUR ---
NURSE NOTES: Left Thoravent is connected to low continuos suction as per order. Output 45cc of serous fluid from collection box noted. Cleaned patient for another small amount of brown soft loose BM. Turned and repositioned patient.
--- NOTE | 2020-07-16 18:21 | Infectious Diseases Prog Note ---
Assessment/Plan ASSESSMENT: sp code blue 06/03 Septic Shock; SP Fever, recurrent- low grade -SP Leukocytosis; recurrent; SP\ 07/13 ucx PsA (I Genta) sp cx P, mirabilsi (R levo) -06/27 Bcx Neg -06/17 u/a no pyuria -06/16 Bcx Neg(Picc line) -06/14 Bcx Neg ucx Neg sp cx C. parapsilopsis -06/03 u/a no pyuria Pneumonia.- COVID 19 neg x3 Acute hypoxic resp failure on VM> NRB 15l 100%; hypoxic on ABG> now VDRF 06/03- Fio2 80% >100% 06/05> 60% 06/09 >80% 06/10 >95% 06/18 >90% 06/22 >60% 06/23 R tension Pneumothroax sp CT 06/29 07/13 CXR: Extensive bilateral airspace opacities, right greater than left, consistent with multifocal infiltrate worse pulmonary edema. This is similar in appearance to the prior study. Worsening, small left pleural effusion. This may be secondary to redistribution as the right-sided pleural effusion has mildly improved. -06/30 CXR: Interim complete reexpansion of right lung without evidence of residual pneumothorax. Bilateral diffuse and extensive infiltrates. Markedly improved chest wall subcutaneous emphysema -06/29 CXR: Interim reexpansion of previously demonstrated right pneumothorax, status post large bore chest tube placement. -06/22 CXR: Improved aeration of both lungs. -06/13 CXR:Small bilateral pleural effusions with minor edema. Stable ed judson with mild worsening in the degree of pleural effusion on the right. -06/09 sp cx Neg 06/08 CXR: Extensive bilateral interstitial and airspace disease appears similar to the prior exam. Moderate to large bilateral pleural effusions appear unchanged. 06/05 CXR: Increasing left upper lobe dense consolidation and likely increasing bilateral pleural fluid. Persistent diffuse dense consolidation elsewhere -06/03 sp cx normal resp marie -06/02 CXR: Increased atelectasis of the right lung, since prior exam of 3 days earlier. New or increased right pleural effusion. Increased left basilar consolidation and/or pleural fluid -COVID Rapid PCR neg 05/31, 05/31, 06/03 -05/30 spc x Group G strep -05/30 CXR: Reduced lung volumes. Patchy bilateral predominantly interstitial pulmonary opacities. Could be from edema and/or pneumonia. There is a broader differential. -legionella ag urine, blasto ab, Histo ab, HIV ab screen, FRANCIS, ANCA neg Persistent, high grade bacteremia- -05/30 Bcx 4/4 sets S. haemolyticus; 05/31 Bcx 3/4 S/ epi; 06/04 Bcx 1.4 S. warnerri; 06/06 Bcx Neg -2d echo: no vegetaions seen ua/ wbc 10-15, nit neg, leuk +1; ucx Neg LEANN; -supratherapeutic vanco levels -Seizure disorder. - Hypothyroidism. - Down syndrome. History of PEG tube placement. [place] resident PLAN: Monitor off abx unless febrile, increasing WBC and/or HD unstable 06/22 SP Meropenem #18, IV Amikacin #7 06/12/20 SP Daptomycin #11 06/10 SP MIcafungin #7, Linezolid #5 06/05 SP Azithromycin #77 06/03 SP Ceftriaxone #2 06/02 SP IV Vancomycin #4, Zosyn #4 05/30 SP Cefepime x1, Flagyl x1 - Monitor CBC, BMP. .f/u cx - COVID neg x3 - Monitor chest x-ray. Thank you, Dr. Allred, for allowing me to participate in the care of this patient. I will follow the patient with you at this hospitalization. Discussed with RN Subjective Allergies: Coded Allergies: No Known Allergies (Unverified , 10/16/18) afebrile remains intubated; Fio2 50% no leukocytosis Objective Last 24 Hour Vital Signs Date Time Temp Pulse Resp B/P (MAP) Pulse Ox O2 Delivery O2 Flow Rate FiO2 07/16/20 18:00 54 18 119/76 (90) 100 07/16/20 17:00 48 17 96/72 (80) 100 07/16/20 16:00 47 07/16/20 16:00 47 24 105/61 (76) 100 07/16/20 16:00 Mechanical Ventilator Mechanical Ventilator Mechanical Ventilator 07/16/20 15:29 52 24 65 07/16/20 15:00 52 22 106/54 (71) 100 07/16/20 14:00 55 22 94/53 (67) 95 07/16/20 13:45 56 22 91/41 (58) 95 07/16/20 13:30 57 30 98/53 (68) 94 07/16/20 13:15 62 20 88/56 (67) 96 07/16/20 13:00 62 20 88/56 (67) 96 07/16/20 13:00 59 31 84/43 (57) 97 07/16/20 12:50 64 16 99 07/16/20 12:45 65 07/16/20 12:45 58 83/40 (54) 07/16/20 12:45 Mechanical Ventilator Mechanical Ventilator Mechanical Ventilator 07/16/20 12:00 65 07/16/20 12:00 56 07/16/20 11:50 98.5 65 24 126/66 (86) 98 07/16/20 11:42 62 24 65 07/16/20 11:10 Mechanical Ventilator Mechanical Ventilator Mechanical Ventilator 07/16/20 11:00 56 24 126/66 (86) 97 07/16/20 10:00 53 21 125/55 (78) 97 07/16/20 09:00 56 22 116/47 (70) 95 07/16/20 08:00 98.7 52 25 125/54 (77) 97 07/16/20 08:00 59 07/16/20 08:00 Mechanical Ventilator Mechanical Ventilator Mechanical Ventilator 07/16/20 08:00 65 07/16/20 07:44 63 24 65 07/16/20 07:00 56 21 127/43 (71) 99 07/16/20 06:00 53 20 136/55 (82) 90 07/16/20 05:00 53 21 129/53 (78) 96 07/16/20 04:00 30 07/16/20 04:00 52 07/16/20 04:00 Mechanical Ventilator Mechanical Ventilator Mechanical Ventilator 07/16/20 04:00 98.5 50 21 128/66 (86) 95 07/16/20 03:10 53 24 65 07/16/20 03:00 50 22 133/55 (81) 97 07/16/20 02:00 53 25 139/62 (87) 97 07/16/20 01:00 53 25 130/57 (81) 96 07/16/20 00:00 Mechanical Ventilator Mechanical Ventilator Mechanical Ventilator 07/16/20 00:00 54 07/16/20 00:00 30 10/8/20 00:00 98.5 59 24 127/53 (77) 99 07/15/20 23:00 55 24 130/56 (80) 97 07/15/20 23:00 59 24 65 07/15/20 22:00 60 18 134/58 (83) 98 07/15/20 21:00 55 24 135/60 (85) 99 07/15/20 20:00 30 07/15/20 20:00 Mechanical Ventilator Mechanical Ventilator Mechanical Ventilator 07/15/20 20:00 54 07/15/20 20:00 98.3 54 24 113/50 (71) 99 07/15/20 19:24 52 24 50 07/15/20 19:24 65 07/15/20 19:00 52 24 108/45 (66) 95 Height (Feet): 5 Height (Inches): 3.00 Weight (Pounds): 173 HEENT: . ETT in place CHEST: Coarse breathing sounds. HEART: S1 and S2. ABDOMEN: Soft. PEG tube in place. SKIN: no rash Laboratory Tests Test 07/16/20 04:00 White Blood Count 6.8 K/UL (4.8-10.8) Red Blood Count 2.46 M/UL (4.20-5.40) L Hemoglobin 7.7 G/DL (12.0-16.0) L Hematocrit 23.6 % (37.0-47.0) L Mean Corpuscular Volume 96 FL (80-99) Mean Corpuscular Hemoglobin 31.4 PG (27.0-31.0) H Mean Corpuscular Hemoglobin Concent 32.7 G/DL (32.0-36.0) Red Cell Distribution Width 17.8 % (11.6-14.8) H Platelet Count 70 K/UL (150-450) L Mean Platelet Volume 7.6 FL (6.5-10.1) Neutrophils (%) (Auto) % (45.0-75.0) Lymphocytes (%) (Auto) % (20.0-45.0) Monocytes (%) (Auto) % (1.0-10.0) Eosinophils (%) (Auto) % (0.0-3.0) Basophils (%) (Auto) % (0.0-2.0) Prothrombin Time 11.3 SEC (9.30-11.50) Prothromb Time International Ratio 1.0 (0.9-1.1) Activated Partial Thromboplast Time 28 SEC (23-33) Sodium Level 141 MMOL/L (136-145) Potassium Level 3.6 MMOL/L (3.5-5.1) Chloride Level 110 MMOL/L (98-107) H Carbon Dioxide Level 25 MMOL/L (21-32) Anion Gap 6 mmol/L (5-15) Blood Urea Nitrogen 14 mg/dL (7-18) Creatinine 0.6 MG/DL (0.55-1.30) Estimat Glomerular Filtration Rate > 60 mL/min (>60) Glucose Level 158 MG/DL (74-106) H Calcium Level 7.1 MG/DL (8.5-10.1) L Total Bilirubin 0.7 MG/DL (0.2-1.0) Aspartate Amino Transf (AST/SGOT) 22 U/L (15-37) Alanine Aminotransferase (ALT/SGPT) 34 U/L (12-78) Alkaline Phosphatase 69 U/L (46-116) Total Protein 4.5 G/DL (6.4-8.2) L Albumin 1.2 G/DL (3.4-5.0) L Globulin 3.3 g/dL Albumin/Globulin Ratio 0.4 (1.0-2.7) L Current Medications Medications (Trade) Dose Ordered Sig/Katy Route PRN Reason Start Time Stop Time Status Last Admin Dose Admin Acetaminophen (Tylenol) 650 mg Q4H PRN GT For Pain 07/01/20 17:15 07/31/20 17:14 07/10/20 17:46 Chlorhexidine Gluconate (Alla-Hex 2%) 1 applic DAILY@1999 TOPIC 06/08/20 20:00 09/06/20 19:59 07/15/20 20:04 Clotrimazole (Lotrimin) 1 applic Q12HR TOPIC 06/07/20 13:00 09/05/20 12:59 07/16/20 08:03 Dextrose (Dextrose 50%) 25 ml Q30M PRN IV Hypoglycemia 06/03/20 11:30 08/28/20 11:29 Dextrose (Dextrose 50%) 50 ml Q30M PRN IV Hypoglycemia 06/03/20 11:30 08/28/20 11:29 Hydrocortisone (Solu-CORTEF) 50 mg EVERY 12 HOURS IV 07/10/20 21:00 10/04/20 20:59 07/16/20 08:02 Insulin Aspart (NovoLOG) Q6HR SUBQ 06/26/20 12:00 09/24/20 11:59 07/15/20 23:56 Insulin Detemir (Levemir) 10 units Q12HR SUBQ 06/26/20 10:00 09/24/20 09:59 07/16/20 08:04 Levothyroxine Sodium (Synthroid) 75 mcg DAILY@0630 GT 07/08/20 06:30 08/07/20 06:29 07/16/20 05:52 Loperamide HCl (Imodium) 2 mg Q6H PRN NG Diarrhea 06/24/20 10:30 07/24/20 10:29 07/01/20 11:41 Lorazepam (Ativan 2mg/ml 1ml) 2 mg Q4H PRN IV For Anxiety 07/13/20 00:45 07/20/20 00:44 07/13/20 03:06 Pantoprazole (Protonix) 40 mg EVERY 12 HOURS IVP 07/06/20 21:00 08/05/20 20:59 07/16/20 08:03 Potassium Chloride (K-Dur) 40 meq EVERY 12 HOURS GT 07/04/20 21:00 09/26/20 12:14 07/15/20 20:04 Sodium Chloride 1,000 ml @ 50 mls/hr Q20H IV 07/12/20 11:00 08/11/20 10:59 07/16/20 15:00 Suki Camejo M.D. Jul 16, 2020 18:21
--- NOTE | 2020-07-16 19:30 | Cardiology Progress Note ---
Assessment/Plan Assessment/Plan sepsis respiratory failure ards renal insuf bacteremia abn cardiac enzyme due to demand sinus rafael stable thrombocytopenia resolved hypernatremia pneumothorax now s/p chest tube on the left now thrombocytopenia vent support abx s/p trach today tsh seems fine remains off pressor still at this time hr inthe 60's s no sig pauses on tele tele personally reviewed left thoravent trach plans 07/16 bp borderlines cxr noted now on 60% watch plt Subjective Subjective on a vent not communicative not AWAKE Objective Last 24 Hour Vital Signs Date Time Temp Pulse Resp B/P (MAP) Pulse Ox O2 Delivery O2 Flow Rate FiO2 07/16/20 18:00 54 18 119/76 (90) 100 07/16/20 17:00 48 17 96/72 (80) 100 07/16/20 16:00 47 07/16/20 16:00 47 24 105/61 (76) 100 07/16/20 16:00 Mechanical Ventilator Mechanical Ventilator Mechanical Ventilator 07/16/20 15:29 52 24 65 07/16/20 15:00 52 22 106/54 (71) 100 07/16/20 14:00 55 22 94/53 (67) 95 07/16/20 13:45 56 22 91/41 (58) 95 07/16/20 13:30 57 30 98/53 (68) 94 07/16/20 13:15 62 20 88/56 (67) 96 07/16/20 13:00 62 20 88/56 (67) 96 07/16/20 13:00 59 31 84/43 (57) 97 07/16/20 12:50 64 16 99 07/16/20 12:45 65 07/16/20 12:45 58 83/40 (54) 07/16/20 12:45 Mechanical Ventilator Mechanical Ventilator Mechanical Ventilator 07/16/20 12:00 65 07/16/20 12:00 56 07/16/20 11:50 98.5 65 24 126/66 (86) 98 07/16/20 11:42 62 24 65 07/16/20 11:10 Mechanical Ventilator Mechanical Ventilator Mechanical Ventilator 07/16/20 11:00 56 24 126/66 (86) 97 07/16/20 10:00 53 21 125/55 (78) 97 07/16/20 09:00 56 22 116/47 (70) 95 07/16/20 08:00 98.7 52 25 125/54 (77) 97 07/16/20 08:00 59 07/16/20 08:00 Mechanical Ventilator Mechanical Ventilator Mechanical Ventilator 07/16/20 08:00 65 07/16/20 07:44 63 24 65 07/16/20 07:00 56 21 127/43 (71) 99 07/16/20 06:00 53 20 136/55 (82) 90 07/16/20 05:00 53 21 129/53 (78) 96 07/16/20 04:00 30 07/16/20 04:00 52 07/16/20 04:00 Mechanical Ventilator Mechanical Ventilator Mechanical Ventilator 07/16/20 04:00 98.5 50 21 128/66 (86) 95 07/16/20 03:10 53 24 65 07/16/20 03:00 50 22 133/55 (81) 97 07/16/20 02:00 53 25 139/62 (87) 97 07/16/20 01:00 53 25 130/57 (81) 96 07/16/20 00:00 Mechanical Ventilator Mechanical Ventilator Mechanical Ventilator 07/16/20 00:00 54 07/16/20 00:00 30 07/16/20 00:00 98.5 59 24 127/53 (77) 99 07/15/20 23:00 55 24 130/56 (80) 97 07/15/20 23:00 59 24 65 07/15/20 22:00 60 18 134/58 (83) 98 07/15/20 21:00 55 24 135/60 (85) 99 07/15/20 20:00 30 07/15/20 20:00 Mechanical Ventilator Mechanical Ventilator Mechanical Ventilator 07/15/20 20:00 54 07/15/20 20:00 98.3 54 24 113/50 (71) 99 Intake and Output 07/15/20 07/16/20 19:00 07:00 Intake Total 1400 ml 1110 ml Output Total 765 ml 795 ml Balance 635 ml 315 ml Free Water 160 ml IV Total 750 ml 600 ml Tube Feeding 650 ml 250 ml Other 100 ml Output Urine Total 760 ml 750 ml Chest Tube Drainage Total 5 ml 45 ml # Voids 60 # Bowel Movements 4 3 Laboratory Tests Test 07/16/20 04:00 White Blood Count 6.8 K/UL (4.8-10.8) Red Blood Count 2.46 M/UL (4.20-5.40) L Hemoglobin 7.7 G/DL (12.0-16.0) L Hematocrit 23.6 % (37.0-47.0) L Mean Corpuscular Volume 96 FL (80-99) Mean Corpuscular Hemoglobin 31.4 PG (27.0-31.0) H Mean Corpuscular Hemoglobin Concent 32.7 G/DL (32.0-36.0) Red Cell Distribution Width 17.8 % (11.6-14.8) H Platelet Count 70 K/UL (150-450) L Mean Platelet Volume 7.6 FL (6.5-10.1) Neutrophils (%) (Auto) % (45.0-75.0) Lymphocytes (%) (Auto) % (20.0-45.0) Monocytes (%) (Auto) % (1.0-10.0) Eosinophils (%) (Auto) % (0.0-3.0) Basophils (%) (Auto) % (0.0-2.0) Prothrombin Time 11.3 SEC (9.30-11.50) Prothromb Time International Ratio 1.0 (0.9-1.1) Activated Partial Thromboplast Time 28 SEC (23-33) Sodium Level 141 MMOL/L (136-145) Potassium Level 3.6 MMOL/L (3.5-5.1) Chloride Level 110 MMOL/L (98-107) H Carbon Dioxide Level 25 MMOL/L (21-32) Anion Gap 6 mmol/L (5-15) Blood Urea Nitrogen 14 mg/dL (7-18) Creatinine 0.6 MG/DL (0.55-1.30) Estimat Glomerular Filtration Rate > 60 mL/min (>60) Glucose Level 158 MG/DL (74-106) H Calcium Level 7.1 MG/DL (8.5-10.1) L Total Bilirubin 0.7 MG/DL (0.2-1.0) Aspartate Amino Transf (AST/SGOT) 22 U/L (15-37) Alanine Aminotransferase (ALT/SGPT) 34 U/L (12-78) Alkaline Phosphatase 69 U/L (46-116) Total Protein 4.5 G/DL (6.4-8.2) L Albumin 1.2 G/DL (3.4-5.0) L Globulin 3.3 g/dL Albumin/Globulin Ratio 0.4 (1.0-2.7) L Josue Pantoja MD Jul 16, 2020 19:30
--- NOTE | 2020-07-16 19:30 | NUR ---
NURSE HAND-OFF REPORT: Latest Vital Signs: Temperature 98.6 , Pulse 47 , B/P 97 /55 , Respiratory Rate 27 , O2 SAT 100 , Mechanical Ventilator, O2 Flow Rate 65%. Vital Sign Comment: EKG Rhythm: Sinus Bradycardia Rhythm change?: N MD Notified?: MD Response: Latest Osorio Fall Score: 70 Fall Risk: High Risk Safety Measures: Call light Within Reach, Bed Alarm Zone 1, Side Rails Side Rails x3, Bed position Low and Locked. Fall Precautions: Yellow Socks Report given to TAI Castro
--- NOTE | 2020-07-16 19:31 | NUR ---
Nurse Notes: Patient received from TAI Sutton. patient asleep arousable to light shaking but nonverbal with Shiley 8 trach on ventilator AC 24 TV 500 FiO2 65%. BP97/55 HR47 Sinus Blair on monitor and afebrile. Left upper arm running 1/2NS @50ml/hr asymptomatic. thoravent on left chest set to low continuous suction. gtube running vital AF @10ml/hr. Gregorio catheter draining yellow urine. SCD's on, patient on p200 mattress. sacral and perineal redness noted. patient repositioned and oral care provided.
--- NOTE | 2020-07-16 20:07 | Internal Med Progress Note ---
Subjective Date of Service: Jul 16, 2020 Physician Name Joni Copeland Attending Physician Elayne Allred MD Current Medications Medications (Trade) Dose Ordered Sig/Katy Route PRN Reason Start Time Stop Time Status Last Admin Dose Admin Acetaminophen (Tylenol) 650 mg Q4H PRN GT For Pain 07/01/20 17:15 07/31/20 17:14 07/10/20 17:46 Chlorhexidine Gluconate (Alla-Hex 2%) 1 applic DAILY@2000 TOPIC 06/08/20 20:00 09/06/20 19:59 07/15/20 20:04 Clotrimazole (Lotrimin) 1 applic Q12HR TOPIC 06/07/20 13:00 09/05/20 12:59 07/16/20 08:03 Dextrose (Dextrose 50%) 25 ml Q30M PRN IV Hypoglycemia 06/03/20 11:30 08/28/20 11:29 Dextrose (Dextrose 50%) 50 ml Q30M PRN IV Hypoglycemia 06/03/20 11:30 08/28/20 11:29 Hydrocortisone (Solu-CORTEF) 50 mg EVERY 12 HOURS IV 07/10/20 21:00 10/04/20 20:59 07/16/20 08:02 Insulin Aspart (NovoLOG) Q6HR SUBQ 06/26/20 12:00 09/24/20 11:59 07/15/20 23:56 Insulin Detemir (Levemir) 10 units Q12HR SUBQ 06/26/20 10:00 09/24/20 09:59 07/16/20 08:04 Levothyroxine Sodium (Synthroid) 75 mcg DAILY@0630 GT 07/08/20 06:30 08/07/20 06:29 07/16/20 05:52 Loperamide HCl (Imodium) 2 mg Q6H PRN NG Diarrhea 06/24/20 10:30 07/24/20 10:29 07/01/20 11:41 Lorazepam (Ativan 2mg/ml 1ml) 2 mg Q4H PRN IV For Anxiety 07/13/20 00:45 07/20/20 00:44 07/13/20 03:06 Pantoprazole (Protonix) 40 mg EVERY 12 HOURS IVP 07/06/20 21:00 08/05/20 20:59 07/16/20 08:03 Potassium Chloride (K-Dur) 40 meq EVERY 12 HOURS GT 07/04/20 21:00 09/26/20 12:14 07/15/20 20:04 Sodium Chloride 1,000 ml @ 50 mls/hr Q20H IV 07/12/20 11:00 08/11/20 10:59 07/16/20 15:00 Allergies: Coded Allergies: No Known Allergies (Unverified , 10/16/18) ROS Limited/Unobtainable: Yes Subjective 59 YO F with Down's syndrome admitted with hypoxia. Now sepsis and pneumonia. Cover for Int Arturo-DR Hawk. ICU. Intubated and sedated Objective Last Vital Signs Date Time Temp Pulse Resp B/P (MAP) Pulse Ox O2 Delivery O2 Flow Rate FiO2 07/16/20 19:44 49 24 65 07/16/20 19:00 97/55 (69) 100 07/16/20 17:00 98.6 07/16/20 16:00 Mechanical Ventilator Mechanical Ventilator Mechanical Ventilator Laboratory Tests Test 07/16/20 04:00 White Blood Count 6.8 K/UL (4.8-10.8) Red Blood Count 2.46 M/UL (4.20-5.40) L Hemoglobin 7.7 G/DL (12.0-16.0) L Hematocrit 23.6 % (37.0-47.0) L Mean Corpuscular Volume 96 FL (80-99) Mean Corpuscular Hemoglobin 31.4 PG (27.0-31.0) H Mean Corpuscular Hemoglobin Concent 32.7 G/DL (32.0-36.0) Red Cell Distribution Width 17.8 % (11.6-14.8) H Platelet Count 70 K/UL (150-450) L Mean Platelet Volume 7.6 FL (6.5-10.1) Neutrophils (%) (Auto) % (45.0-75.0) Lymphocytes (%) (Auto) % (20.0-45.0) Monocytes (%) (Auto) % (1.0-10.0) Eosinophils (%) (Auto) % (0.0-3.0) Basophils (%) (Auto) % (0.0-2.0) Prothrombin Time 11.3 SEC (9.30-11.50) Prothromb Time International Ratio 1.0 (0.9-1.1) Activated Partial Thromboplast Time 28 SEC (23-33) Sodium Level 141 MMOL/L (136-145) Potassium Level 3.6 MMOL/L (3.5-5.1) Chloride Level 110 MMOL/L (98-107) H Carbon Dioxide Level 25 MMOL/L (21-32) Anion Gap 6 mmol/L (5-15) Blood Urea Nitrogen 14 mg/dL (7-18) Creatinine 0.6 MG/DL (0.55-1.30) Estimat Glomerular Filtration Rate > 60 mL/min (>60) Glucose Level 158 MG/DL (74-106) H Calcium Level 7.1 MG/DL (8.5-10.1) L Total Bilirubin 0.7 MG/DL (0.2-1.0) Aspartate Amino Transf (AST/SGOT) 22 U/L (15-37) Alanine Aminotransferase (ALT/SGPT) 34 U/L (12-78) Alkaline Phosphatase 69 U/L (46-116) Total Protein 4.5 G/DL (6.4-8.2) L Albumin 1.2 G/DL (3.4-5.0) L Globulin 3.3 g/dL Albumin/Globulin Ratio 0.4 (1.0-2.7) L Intake and Output 07/15/20 07/16/20 19:00 07:00 Intake Total 1400 ml 1110 ml Output Total 765 ml 795 ml Balance 635 ml 315 ml Free Water 160 ml IV Total 750 ml 600 ml Tube Feeding 650 ml 250 ml Other 100 ml Output Urine Total 760 ml 750 ml Chest Tube Drainage Total 5 ml 45 ml # Voids 60 # Bowel Movements 4 3 Objective General Appearance: WD/WN, no apparent distress, alert EENT: PERRL/EOMI, normal ENT inspection Neck: non-tender, normal alignment, supple, normal inspection Cardiovascular: normal peripheral pulses, normal rate, regular rhythm, no gallop/murmur, no JVD Respiratory/Chest: Mech vent; decreased breath sounds, crackles/rales, rhonchi - bilaterally, expiratory wheezing Abdomen: normal bowel sounds, non tender, soft, no organomegaly, no mass Extremities: normal range of motion Neurologic: cleaning custodian II-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 S/P amikacin per ID=Dr Camejo. Pulmonary/Critical care=DR Allred. COVID NEG (2) Sepsis Assessment & Plan: Staph haemolyticus. S/P amikacin per ID=Dr Camejo (3) Down's syndrome (4) Dysphagia Assessment & Plan: S/P PEG (5) Seizure disorder Assessment & Plan: Continue keppra and depakote (6) Hypothyroidism Assessment & Plan: Continue synthroid (7) Acute respiratory failure Assessment & Plan: Pulmonary = Dr Allred; mech vent (8) Pneumothorax, right Assessment & Plan: Continue chest tube per pulmonary (9) Cardiac arrest Assessment & Plan: 06/03/20-see cardiology note=Joni Lord MD Jul 16, 2020 20:07
[2020-07-16] MEDS: Dyna-Hex 2% Top Sol 2oz TOPIC SCH (21:11)
--- NOTE | 2020-07-16 22:00 | NUR ---
Nurse Notes: patient asleep arousable to light shaking but nonverbal with shiley 8 trach on ventilator AC 24 TV 500 FiO2 65%. BP97/64 HR45 Sinus Blair on monitor and afebrile. Left upper arm running 1/2NS @50ml/hr asymptomatic. thoravent on left chest set to low continuous suction. gtube running vital AF @20ml/hr with no residual. sarah catheter draining yellow urine. patient repositioned and oral care provided.
[2020-07-17] VITALS (24 sets, daily range): BP systolic 87–129; BP diastolic 42–90
--- NOTE | 2020-07-17 | NUR ---
Nurse Notes: patient asleep arousable to light shaking but nonverbal with Shiley 8 trach on ventilator AC 24 TV 500 FiO2 65%. BP129/87 HR47 Sinus Blair on monitor and afebrile. Left upper arm running 1/2NS @50ml/hr asymptomatic. thoravent on left chest set to low continuous suction. gtube running vital AF @20ml/hr. blood sugar 75, 120ml juice given per protocol, blood sugar 94 after 15min. Gregorio catheter draining yellow urine. patient repositioned and oral care provided.
--- NOTE | 2020-07-17 02:00 | NUR ---
Nurse Notes: patient asleep arousable to light shaking but nonverbal with Shiley 8 trach on ventilator AC 24 TV 500 FiO2 65%. BP105/42 HR49 Sinus Blair on monitor and afebrile. Left upper arm running 1/2NS @50ml/hr asymptomatic. thoravent on left chest set to low continuous suction. gtube running vital AF @30ml/hr. Gregorio catheter draining yellow urine. patient repositioned and oral care provided.
--- NOTE | 2020-07-17 04:00 | NUR ---
Nurse Notes: patient asleep arousable to light shaking but nonverbal with Shiley 8 trach on ventilator AC 24 TV 500 FiO2 50%. BP120/90 HR57 Sinus Blair on monitor and afebrile. Left upper arm running 1/2NS @50ml/hr asymptomatic. thoravent on left chest set to low continuous suction. gtube running vital AF @30ml/hr. Gregorio catheter draining yellow urine. patient given CHG bath, repositioned and oral care provided.
[2020-07-17] MEDS: NovoLOG Insulin Flexpen SUBQ SCH ×4 (06:00→17:28)
--- NOTE | 2020-07-17 06:00 | NUR ---
Nurse Notes: patient asleep arousable to light shaking and nonverbal with Shiley 8 trach on ventilator AC 24 TV 500 FiO2 50%. BP97/56 HR49 Sinus Blair on monitor and afebrile. left upper arm running 1/2NS @50ml/hr asymptomatic. thoravent on left chest set to low continuous suction. gtube running vital AF @40ml/hr, held for Synthroid. Gregorio catheter draining yellow urine. patient given repositioned and oral care provided.
[2020-07-17] MEDS ORDERED: Etomidate 40mg/20ml Inj IV ONE (06:19)
[2020-07-17 06:34] LABS: ALANINE AMINOTRANSFERASE 36 U/L (12-78); ALBUMIN 1.2 G/DL (3.4-5.0); ALBUMIN/GLOBULIN RATIO 0.3 (1.0-2.7); ALKALINE PHOSPHATASE 77 U/L (46-116); ANION GAP 9 mmol/L (5-15); ASPARTATE AMINO TRANSFERASE 31 U/L (15-37); BILIRUBIN,TOTAL 0.7 MG/DL (0.2-1.0); BLOOD UREA NITROGEN 13 mg/dL (7-18); CALCIUM 7.1 MG/DL (8.5-10.1); CARBON DIOXIDE 22 MMOL/L (21-32); CHLORIDE 109 MMOL/L (98-107); CREATININE 0.6 MG/DL (0.55-1.30); PHOSPHORUS 2.7 MG/DL (2.5-4.9); POTASSIUM 3.9 MMOL/L (3.5-5.1); SODIUM 140 MMOL/L (136-145)
[2020-07-17 06:38] LABS: HEMATOCRIT 23.8 % (37.0-47.0); HEMOGLOBIN 7.9 G/DL (12.0-16.0); MEAN CORPUSCULAR VOLUME 95 FL (80-99); PLATELET COUNT 66 K/UL (150-450); RED CELL DISTRIBUTION WIDTH 17.6 % (11.6-14.8)
--- NOTE | 2020-07-17 07:05 | NUR ---
NURSE HAND-OFF REPORT: Latest Vital Signs: Temperature 97.7 , Pulse 49 , B/P 97 /56 , Respiratory Rate 29 , O2 SAT 98 , Mechanical Ventilator, O2 Flow Rate 15.0 . Vital Sign Comment: Scarlett LAMBERT aware. EKG Rhythm: Sinus Bradycardia Rhythm change?: N Notified?: Marce Oliveros MD Response: No New Orders Received Latest Osorio Fall Score: 70 Fall Risk: High Risk Safety Measures: Call light Within Reach, Bed Alarm Zone 1, Side Rails Side Rails x3, Bed position Low and Locked. Fall Precautions: Yellow Socks Report given to TAI Giron.
--- NOTE | 2020-07-17 07:43 | NUR ---
NURSE NOTES: Report received from TAI Llamas. Pt lying comfortably in semi-fowlers with no signs of acute distress noted. A+Ox1, opens eyes to voice and tracks. Pt nonverbal and does not follow commands. Pt SB on the monitor @ 49. Respirations even and unlabored on trach/vent with shiley 8 and Vent settings AC 24 VT 500, 50% fio2. G-tube noted running feeding @ 40 ml/hr. Left upper arm picc running fluids @ prescribed rate. Patient has sacral and left foot wound dressed in optifoam, clean and dry. Thoravent on continuous suction, draining serous fluid. All other vitals stable as documented. Bed at lowest position, brakes engaged, siderails x3, bed alarm on, and call light within reach. Pt at stable condition at this time, will continue to monitor.
[2020-07-17] MEDS: Pantoprazole Inj IVP SCH ×2 (08:11→20:41)
[2020-07-17] MEDS: Hydrocortisone 100mg Inj IV SCH ×3 (08:13→22:00)
[2020-07-17] MEDS: Levemir Flexpen SUBQ SCH ×2 (08:15→20:43)
--- NOTE | 2020-07-17 08:45 | NUR ---
RD ASSESSMENT & RECOMMENDATIONS SEE CARE ACTIVITY FOR COMPLETE ASSESSMENT DAILY ESTIMATED NEEDS: Needs based on CRITICAL CARE, 50kg 22-28 kcals/kg 9639-2628 total kcals 1.25-2 g protein/kg 63-100 g total protein 25-30 mL/kg 4135-8398 total fluid mLs NUTRITION DIAGNOSIS: Swallowing difficulty r/t dysphagia as evidenced by pt w/ Downs Syndrome, PEG dep for all nutritional needs, now intubated, off pressor support pending trach placement. CURRENT TF:Vital AF 1.2 @ 50ml/hr x 22 hrs (On Synthroid QD)- held for procedure ENTERAL NUTRITION RECOMMENDATIONS: VITAL AF 1.2 @ 50ml/hr x 22 hrs to provide 1100ml, 1320 kcal, 83g prot, 892ml free wa ter * Maintain current TF: meets 100% est kcal/prot needs * Hold 1 hr before and after Synthroid med * HOB over 30 degrees/ water flush per MD ADDITIONAL RECOMMENDATIONS: 1) Ht of 61 inches per SNF; recalibrate bed scale for accurate CBW 2) Add NISS: BGs now in the 200's, on Solucortef-> NOW ON NISS + LEVEMIR 3) Monitor hemodynamic stability: OFF PRESSOR SUPPORT 4) Wound healing: add Vit C 250mg QD + continue [place] BID 5) Monitor lytes, replete as needed (low phos) 6) Probiotics for diarrhea .
--- NOTE | 2020-07-17 10:34 | NUR ---
NURSE NOTES: Dr. Allred @ bedside.
--- NOTE | 2020-07-17 10:54 | Pulmonolgy Critical Care Note ---
Critical Care - Asmt/Plan Problems: (1) Acute respiratory failure (2) Pneumothorax Assessment & Plan: resolved, left Chest tube still in. (3) Bacteremia (4) Pneumonia (5) Sepsis (6) HCAP (healthcare-associated pneumonia) (7) Seizure disorder (8) Down's syndrome (9) Trisomy 21, Down syndrome Respiratory: monitor respiratory rate, adjust FIO2, CXR Cardiac: continue to monitor HR/BP Renal: check electrolytes Infectious Disease: check cultures Gastrointestinal: continue feedings/current rate Endocrine: monitor blood sugar, check HgA1C Hematologic: monitor H/H Neurologic: PRN Ativan, PRN Morphine Disposition: keep in ICU Notes Reviewed: clinical team lead, cardio, 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 with: nurses, consultants, case fittersenior hr manager - Objective Last 24 Hour Vital Signs Date Time Temp Pulse Resp B/P (MAP) Pulse Ox O2 Delivery O2 Flow Rate FiO2 07/17/20 10:00 48 23 93/58 (70) 97 07/17/20 09:00 51 27 100/60 (73) 97 07/17/20 08:00 Mechanical Ventilator Mechanical Ventilator Mechanical Ventilator 07/17/20 08:00 47 07/17/20 08:00 98.6 44 22 98/67 (77) 98 07/17/20 08:00 50 07/17/20 07:05 60 24 50 07/17/20 07:00 45 21 95/56 (69) 98 07/17/20 06:00 49 29 97/56 (70) 98 07/17/20 05:00 45 29 106/42 (63) 98 07/17/20 04:00 97.7 57 22 120/90 (100) 97 07/17/20 04:00 51 07/17/20 04:00 Mechanical Ventilator Mechanical Ventilator Mechanical Ventilator 07/17/20 04:00 50 07/17/20 03:33 49 24 50 07/17/20 03:00 56 25 99/48 (65) 98 07/17/20 02:00 49 28 105/42 (63) 99 07/17/20 01:00 46 33 108/83 (91) 100 07/17/20 00:00 46 07/17/20 00:00 Mechanical Ventilator Mechanical Ventilator Mechanical Ventilator 07/17/20 00:00 97.7 47 24 129/87 (101) 100 07/16/20 23:58 48 24 50 07/16/20 23:00 44 29 92/54 (67) 100 07/16/20 22:00 45 24 97/64 (75) 100 07/16/20 21:00 45 26 104/57 (73) 100 07/16/20 20:00 Mechanical Ventilator Mechanical Ventilator Mechanical Ventilator 07/16/20 20:00 65 07/16/20 20:00 47 07/16/20 20:00 97.6 47 23 110/58 (75) 100 07/16/20 19:44 49 24 65 07/16/20 19:00 47 27 97/55 (69) 100 07/16/20 18:00 54 18 119/76 (90) 100 07/16/20 17:00 98.6 48 17 96/72 (80) 100 07/16/20 16:00 47 07/16/20 16:00 47 24 105/61 (76) 100 07/16/20 16:00 Mechanical Ventilator Mechanical Ventilator Mechanical Ventilator 07/16/20 15:29 52 24 65 07/16/20 15:00 52 22 106/54 (71) 100 07/16/20 14:00 55 22 94/53 (67) 95 07/16/20 13:45 56 22 91/41 (58) 95 07/16/20 13:30 57 30 98/53 (68) 94 07/16/20 13:15 62 20 88/56 (67) 96 07/16/20 13:00 62 20 88/56 (67) 96 07/16/20 13:00 59 31 84/43 (57) 97 07/16/20 12:50 64 16 99 07/16/20 12:45 65 07/16/20 12:45 58 83/40 (54) 07/16/20 12:45 Mechanical Ventilator Mechanical Ventilator Mechanical Ventilator 07/16/20 12:00 65 07/16/20 12:00 56 07/16/20 11:50 98.5 65 24 126/66 (86) 98 07/16/20 11:42 62 24 65 07/16/20 11:10 Mechanical Ventilator Mechanical Ventilator Mechanical Ventilator 07/16/20 11:00 56 24 126/66 (86) 97 Status: awake, sedated, somnolent Condition: improving HEENT: atraumatic, normocephalic Neck: trach Lungs: rales, rhonchi Heart: HR/BP stable, HR/BP unstable Abdomen: soft, non-tender Extremities: no C/C/E Decubiti: location Accucheck: 106 Critical Care - Subjective ROS Limited/Unobtainable: Yes Condition: critical EKG Rhythm: Sinus Rhythm FI02: 50 Vent Support Breath Rate: 24 Vent Support Mode: AC Vent Tidal Volume: 500 Sputum Amount: Small PEEP: 0.0 PIP: 33 Tube Feeding Amount: 40 I&O: Intake and Output 07/16/20 07/17/20 19:00 07:00 Intake Total 630 ml 1020 ml Output Total 530 ml 745 ml Balance 100 ml 275 ml Free Water 120 ml IV Total 600 ml 650 ml Tube Feeding 30 ml 250 ml Output Urine Total 485 ml 620 ml Chest Tube Drainage Total 45 ml 125 ml # Bowel Movements 4 1 CXR: Left chest vent catheter is again demonstrated. No pneumothorax. Tracheostomy, left arm PICC, bilateral infiltrates are all unchanged. ET-Tube: 7.5 ET Position: 23 Labs: Laboratory Tests Test 07/16/20 23:51 07/17/20 00:11 07/17/20 04:50 POC Whole Blood Glucose Pending 94 MG/DL (74-106) White Blood Count 8.0 K/UL (4.8-10.8) Red Blood Count 2.50 M/UL (4.20-5.40) L Hemoglobin 7.9 G/DL (12.0-16.0) L Hematocrit 23.8 % (37.0-47.0) L Mean Corpuscular Volume 95 FL (80-99) Mean Corpuscular Hemoglobin 31.6 PG (27.0-31.0) H Mean Corpuscular Hemoglobin Concent 33.2 G/DL (32.0-36.0) Red Cell Distribution Width 17.6 % (11.6-14.8) H Platelet Count 66 K/UL (150-450) L Mean Platelet Volume 9.0 FL (6.5-10.1) Neutrophils (%) (Auto) % (45.0-75.0) Lymphocytes (%) (Auto) % (20.0-45.0) Monocytes (%) (Auto) % (1.0-10.0) Eosinophils (%) (Auto) % (0.0-3.0) Basophils (%) (Auto) % (0.0-2.0) Sodium Level 140 MMOL/L (136-145) Potassium Level 3.9 MMOL/L (3.5-5.1) Chloride Level 109 MMOL/L (98-107) H Carbon Dioxide Level 22 MMOL/L (21-32) Anion Gap 9 mmol/L (5-15) Blood Urea Nitrogen 13 mg/dL (7-18) Creatinine 0.6 MG/DL (0.55-1.30) Estimat Glomerular Filtration Rate > 60 mL/min (>60) Glucose Level 112 MG/DL (74-106) H Calcium Level 7.1 MG/DL (8.5-10.1) L Phosphorus Level 2.7 MG/DL (2.5-4.9) Magnesium Level 2.2 MG/DL (1.8-2.4) Total Bilirubin 0.7 MG/DL (0.2-1.0) Aspartate Amino Transf (AST/SGOT) 31 U/L (15-37) Alanine Aminotransferase (ALT/SGPT) 36 U/L (12-78) Alkaline Phosphatase 77 U/L (46-116) Total Protein 5.1 G/DL (6.4-8.2) L Albumin 1.2 G/DL (3.4-5.0) L Globulin 3.9 g/dL Albumin/Globulin Ratio 0.3 (1.0-2.7) L Elayne Allred MD Jul 17, 2020 10:54
--- NOTE | 2020-07-17 11:29 | General Progress Note ---
Subjective ROS Limited/Unobtainable: No Allergies: Coded Allergies: No Known Allergies (Unverified , 10/16/18) Objective Last 24 Hour Vital Signs Date Time Temp Pulse Resp B/P (MAP) Pulse Ox O2 Delivery O2 Flow Rate FiO2 07/17/20 10:00 48 23 93/58 (70) 97 07/17/20 09:00 51 27 100/60 (73) 97 07/17/20 08:00 Mechanical Ventilator Mechanical Ventilator Mechanical Ventilator 07/17/20 08:00 47 07/17/20 08:00 98.6 44 22 98/67 (77) 98 07/17/20 08:00 50 07/17/20 07:05 60 24 50 07/17/20 07:00 45 21 95/56 (69) 98 07/17/20 06:00 49 29 97/56 (70) 98 07/17/20 05:00 45 29 106/42 (63) 98 07/17/20 04:00 97.7 57 22 120/90 (100) 97 07/17/20 04:00 51 07/17/20 04:00 Mechanical Ventilator Mechanical Ventilator Mechanical Ventilator 07/17/20 04:00 50 07/17/20 03:33 49 24 50 07/17/20 03:00 56 25 99/48 (65) 98 07/17/20 02:00 49 28 105/42 (63) 99 07/17/20 01:00 46 33 108/83 (91) 100 07/17/20 00:00 46 07/17/20 00:00 Mechanical Ventilator Mechanical Ventilator Mechanical Ventilator 07/17/20 00:00 97.7 47 24 129/87 (101) 100 07/16/20 23:58 48 24 50 07/16/20 23:00 44 29 92/54 (67) 100 07/16/20 22:00 45 24 97/64 (75) 100 07/16/20 21:00 45 26 104/57 (73) 100 07/16/20 20:00 Mechanical Ventilator Mechanical Ventilator Mechanical Ventilator 07/16/20 20:00 65 07/16/20 20:00 47 07/16/20 20:00 97.6 47 23 110/58 (75) 100 07/16/20 19:44 49 24 65 07/16/20 19:00 47 27 97/55 (69) 100 07/16/20 18:00 54 18 119/76 (90) 100 07/16/20 17:00 98.6 48 17 96/72 (80) 100 07/16/20 16:00 47 07/16/20 16:00 47 24 105/61 (76) 100 07/16/20 16:00 Mechanical Ventilator Mechanical Ventilator Mechanical Ventilator 07/16/20 15:29 52 24 65 07/16/20 15:00 52 22 106/54 (71) 100 07/16/20 14:00 55 22 94/53 (67) 95 07/16/20 13:45 56 22 91/41 (58) 95 07/16/20 13:30 57 30 98/53 (68) 94 07/16/20 13:15 62 20 88/56 (67) 96 07/16/20 13:00 62 20 88/56 (67) 96 07/16/20 13:00 59 31 84/43 (57) 97 07/16/20 12:50 64 16 99 07/16/20 12:45 65 07/16/20 12:45 58 83/40 (54) 07/16/20 12:45 Mechanical Ventilator Mechanical Ventilator Mechanical Ventilator 07/16/20 12:00 65 07/16/20 12:00 56 07/16/20 11:50 98.5 65 24 126/66 (86) 98 07/16/20 11:42 62 24 65 Intake and Output 07/16/20 07/17/20 19:00 07:00 Intake Total 630 ml 1020 ml Output Total 530 ml 745 ml Balance 100 ml 275 ml Free Water 120 ml IV Total 600 ml 650 ml Tube Feeding 30 ml 250 ml Output Urine Total 485 ml 620 ml Chest Tube Drainage Total 45 ml 125 ml # Bowel Movements 4 1 Laboratory Tests 07/16/20 23:51: POC Whole Blood Glucose [Pending] 07/17/20 00:11: POC Whole Blood Glucose 94 07/17/20 04:50: White Blood Count 8.0, Red Blood Count 2.50L, Hemoglobin 7.9L, Hematocrit 23.8L, Mean Corpuscular Volume 95, Mean Corpuscular Hemoglobin 31.6H, Mean Corpuscular Hemoglobin Concent 33.2, Red Cell Distribution Width 17.6H, Platelet Count 66L, Mean Platelet Volume 9.0, Neutrophils (%) (Auto) , Lymphocytes (%) (Auto) , Monocytes (%) (Auto) , Eosinophils (%) (Auto) , Basophils (%) (Auto) , Sodium Level 140, Potassium Level 3.9, Chloride Level 109H, Carbon Dioxide Level 22, Anion Gap 9, Blood Urea Nitrogen 13, Creatinine 0.6, Estimat Glomerular Filtration Rate > 60, Glucose Level 112H, Calcium Level 7.1L, Phosphorus Level 2.7, Magnesium Level 2.2, Total Bilirubin 0.7, Aspartate Amino Transf (AST/SGOT) 31, Alanine Aminotransferase (ALT/SGPT) 36, Alkaline Phosphatase 77, Total Protein 5.1L, Albumin 1.2L, Globulin 3.9, Albumin/Globulin Ratio 0.3L Height (Feet): 5 Height (Inches): 3.00 Weight (Pounds): 173 General Appearance: lethargic EENT: normal ENT inspection Neck: supple Cardiovascular: normal rate Respiratory/Chest: decreased breath sounds Abdomen: soft, hypoactive bowel sounds Extremities: non-tender Assessment/Plan Status: stable, not improved, unchanged Assessment/Plan: 1. History of Down syndrome. 2. Dysphagia with G-tube. 3. Seizure disorder. 4. Hypothyroidism. 5. LEANN. 6. Pneumonia. 7. Sepsis. fu H&H prn blood transfusion to keep HGB above 7 ppi GTF hold GI procedures for now Nehemiah Perez MD Jul 17, 2020 11:29
--- NOTE | 2020-07-17 11:34 | Infectious Diseases Prog Note ---
Assessment/Plan ASSESSMENT: sp code blue 06/03 Septic Shock; SP Fever, recurrent- low grade -SP Leukocytosis; recurrent; SP\ 10/ u/a -, nit neg, leuk +2; ucx PsA (I Genta); colonizer sp cx P, mirabilsi (R levo); colonzier -06/27 Bcx Neg -06/17 u/a no pyuria -06/16 Bcx Neg(Picc line) -06/14 Bcx Neg ucx Neg sp cx C. parapsilopsis -06/03 u/a no pyuria Pneumonia.- COVID 19 neg x3 Acute hypoxic resp failure on VM> NRB 15l 100%; hypoxic on ABG> now VDRF 06/03- Fio2 80% >100% 06/05> 60% 06/09 >80% 06/10 >95% 06/18 >90% 06/22 >60% 06/23 R tension Pneumothroax sp CT 06/29 07/16 CXR: bilateral infiltrates are all unchanged. 07/13 CXR: Extensive bilateral airspace opacities, right greater than left, consistent with multifocal infiltrate worse pulmonary edema. This is similar in appearance to the prior study. Worsening, small left pleural effusion. This may be secondary to redistribution as the right-sided pleural effusion has mildly improved. -06/30 CXR: Interim complete reexpansion of right lung without evidence of residual pneumothorax. Bilateral diffuse and extensive infiltrates. Markedly improved chest wall subcutaneous emphysema -06/29 CXR: Interim reexpansion of previously demonstrated right pneumothorax, status post large bore chest tube placement. -06/22 CXR: Improved aeration of both lungs. -06/13 CXR:Small bilateral pleural effusions with minor edema. Stable edema with mild worsening in the degree of pleural effusion on the right. -06/09 sp cx Neg 06/08 CXR: Extensive bilateral interstitial and airspace disease appears similar to the prior exam. Moderate to large bilateral pleural effusions appear unchanged. 06/05 CXR: Increasing left upper lobe dense consolidation and likely increasing bilateral pleural fluid. Persistent diffuse dense consolidation elsewhere -06/03 sp cx normal resp marie -06/02 CXR: Increased atelectasis of the right lung, since prior exam of 3 days earlier. New or increased right pleural effusion. Increased left basilar consolidation and/or pleural fluid -COVID Rapid PCR neg 05/31, 05/31, 06/03 -05/30 spc x Group G strep -05/30 CXR: Reduced lung volumes. Patchy bilateral predominantly interstitial pulmonary opacities. Could be from edema and/or pneumonia. There is a broader differential. -legionella ag urine, blasto ab, Histo ab, HIV ab screen, FRANCIS, ANCA neg Persistent, high grade bacteremia- -05/30 Bcx 4/4 sets S. haemolyticus; 05/31 Bcx 3/4 S/ epi; 06/04 Bcx 1.4 S. warnerri; 06/06 Bcx Neg -2d echo: no vegetaions seen ua/ wbc 10-15, nit neg, leuk +1; ucx Neg LEANN; -supratherapeutic vanco levels -Seizure disorder. - Hypothyroidism. - Down syndrome. History of PEG tube placement. [place] resident PLAN: Monitor off abx unless febrile, increasing WBC and/or HD unstable 06/22 SP Meropenem #18, IV Amikacin #7 06/12/20 SP Daptomycin #11 06/10 SP MIcafungin #7, Linezolid #5 06/05 SP Azithromycin #7/7 06/03 SP Ceftriaxone #2 06/02 SP IV Vancomycin #4, Zosyn #4 05/30 SP Cefepime x1, Flagyl x1 - Monitor CBC, BMP. .f/u cx - COVID neg x3 - Monitor chest x-ray. Thank you, Dr. Allred, for allowing me to participate in the care of this patient. I will follow the patient with you at this hospitalization. Discussed with RN Subjective Allergies: Coded Allergies: No Known Allergies (Unverified , 10/16/18) afebrile remains intubated; Fio2 50% no leukocytosis Objective Last 24 Hour Vital Signs Date Time Temp Pulse Resp B/P (MAP) Pulse Ox O2 Delivery O2 Flow Rate FiO2 07/17/20 10:00 48 23 93/58 (70) 97 07/17/20 09:00 51 27 100/60 (73) 97 07/17/20 08:00 Mechanical Ventilator Mechanical Ventilator Mechanical Ventilator 07/17/20 08:00 47 07/17/20 08:00 98.6 44 22 98/67 (77) 98 07/17/20 08:00 50 07/17/20 07:05 60 24 50 07/17/20 07:00 45 21 95/56 (69) 98 07/17/20 06:00 49 29 97/56 (70) 98 07/17/20 05:00 45 29 106/42 (63) 98 07/17/20 04:00 97.7 57 22 120/90 (100) 97 07/17/20 04:00 51 07/17/20 04:00 Mechanical Ventilator Mechanical Ventilator Mechanical Ventilator 07/17/20 04:00 50 07/17/20 03:33 49 24 50 07/17/20 03:00 56 25 99/48 (65) 98 07/17/20 02:00 49 28 105/42 (63) 99 07/17/20 01:00 46 33 108/83 (91) 100 07/17/20 00:00 46 07/17/20 00:00 Mechanical Ventilator Mechanical Ventilator Mechanical Ventilator 07/17/20 00:00 97.7 47 24 129/87 (101) 100 07/16/20 23:58 48 24 50 07/16/20 23:00 44 29 92/54 (67) 100 07/16/20 22:00 45 24 97/64 (75) 100 07/16/20 21:00 45 26 104/57 (73) 100 07/16/20 20:00 Mechanical Ventilator Mechanical Ventilator Mechanical Ventilator 07/16/20 20:00 65 07/16/20 20:00 47 07/16/20 20:00 97.6 47 23 110/58 (75) 100 07/16/20 19:44 49 24 65 07/16/20 19:00 47 27 97/55 (69) 100 07/16/20 18:00 54 18 119/76 (90) 100 07/16/20 17:00 98.6 48 17 96/72 (80) 100 07/16/20 16:00 47 07/16/20 16:00 47 24 105/61 (76) 100 07/16/20 16:00 Mechanical Ventilator Mechanical Ventilator Mechanical Ventilator 07/16/20 15:29 52 24 65 07/16/20 15:00 52 22 106/54 (71) 100 07/16/20 14:00 55 22 94/53 (67) 95 07/16/20 13:45 56 22 91/41 (58) 95 07/16/20 13:30 57 30 98/53 (68) 94 07/16/20 13:15 62 20 88/56 (67) 96 07/16/20 13:00 62 20 88/56 (67) 96 07/16/20 13:00 59 31 84/43 (57) 97 07/16/20 12:50 64 16 99 07/16/20 12:45 65 07/16/20 12:45 58 83/40 (54) 07/16/20 12:45 Mechanical Ventilator Mechanical Ventilator Mechanical Ventilator 07/16/20 12:00 65 07/16/20 12:00 56 07/16/20 11:50 98.5 65 24 126/66 (86) 98 07/16/20 11:42 62 24 65 Height (Feet): 5 Height (Inches): 3.00 Weight (Pounds): 173 HEENT: . ETT in place CHEST: Coarse breathing sounds. HEART: S1 and S2. ABDOMEN: Soft. PEG tube in place. SKIN: no rash Laboratory Tests Test 07/16/20 23:51 07/17/20 00:11 07/17/20 04:50 POC Whole Blood Glucose Pending 94 MG/DL (74-106) White Blood Count 8.0 K/UL (4.8-10.8) Red Blood Count 2.50 M/UL (4.20-5.40) L Hemoglobin 7.9 G/DL (12.0-16.0) L Hematocrit 23.8 % (37.0-47.0) L Mean Corpuscular Volume 95 FL (80-99) Mean Corpuscular Hemoglobin 31.6 PG (27.0-31.0) H Mean Corpuscular Hemoglobin Concent 33.2 G/DL (32.0-36.0) Red Cell Distribution Width 17.6 % (11.6-14.8) H Platelet Count 66 K/UL (150-450) L Mean Platelet Volume 9.0 FL (6.5-10.1) Neutrophils (%) (Auto) % (45.0-75.0) Lymphocytes (%) (Auto) % (20.0-45.0) Monocytes (%) (Auto) % (1.0-10.0) Eosinophils (%) (Auto) % (0.0-3.0) Basophils (%) (Auto) % (0.0-2.0) Sodium Level 140 MMOL/L (136-145) Potassium Level 3.9 MMOL/L (3.5-5.1) Chloride Level 109 MMOL/L (98-107) H Carbon Dioxide Level 22 MMOL/L (21-32) Anion Gap 9 mmol/L (5-15) Blood Urea Nitrogen 13 mg/dL (7-18) Creatinine 0.6 MG/DL (0.55-1.30) Estimat Glomerular Filtration Rate > 60 mL/min (>60) Glucose Level 112 MG/DL (74-106) H Calcium Level 7.1 MG/DL (8.5-10.1) L Phosphorus Level 2.7 MG/DL (2.5-4.9) Magnesium Level 2.2 MG/DL (1.8-2.4) Total Bilirubin 0.7 MG/DL (0.2-1.0) Aspartate Amino Transf (AST/SGOT) 31 U/L (15-37) Alanine Aminotransferase (ALT/SGPT) 36 U/L (12-78) Alkaline Phosphatase 77 U/L (46-116) Total Protein 5.1 G/DL (6.4-8.2) L Albumin 1.2 G/DL (3.4-5.0) L Globulin 3.9 g/dL Albumin/Globulin Ratio 0.3 (1.0-2.7) L Current Medications Medications (Trade) Dose Ordered Sig/Katy Route PRN Reason Start Time Stop Time Status Last Admin Dose Admin Acetaminophen (Tylenol) 650 mg Q4H PRN GT For Pain 07/01/20 17:15 07/31/20 17:14 07/10/20 17:46 Chlorhexidine Gluconate (Alla-Hex 2%) 1 applic DAILY@1999 TOPIC 06/08/20 20:00 09/06/20 19:59 07/16/20 21:11 Clotrimazole (Lotrimin) 1 applic Q12HR TOPIC 06/07/20 13:00 09/05/20 12:59 07/17/20 08:14 Dextrose (Dextrose 50%) 25 ml Q30M PRN IV Hypoglycemia 06/03/20 11:30 08/28/20 11:29 Dextrose (Dextrose 50%) 50 ml Q30M PRN IV Hypoglycemia 06/03/20 11:30 08/28/20 11:29 Hydrocortisone (Solu-CORTEF) 50 mg EVERY 12 HOURS IV 07/10/20 21:00 10/04/20 20:59 07/17/20 08:13 Insulin Aspart (NovoLOG) Q6HR SUBQ 06/26/20 12:00 09/24/20 11:59 07/15/20 23:56 Insulin Detemir (Levemir) 10 units Q12HR SUBQ 06/26/20 10:00 09/24/20 09:59 07/17/20 08:15 Levothyroxine Sodium (Synthroid) 75 mcg DAILY@0630 GT 07/08/20 06:30 08/07/20 06:29 07/17/20 05:45 Loperamide HCl (Imodium) 2 mg Q6H PRN NG Diarrhea 06/24/20 10:30 07/24/20 10:29 07/01/20 11:41 Lorazepam (Ativan 2mg/ml 1ml) 2 mg Q4H PRN IV For Anxiety 07/13/20 00:45 07/20/20 00:44 07/13/20 03:06 Pantoprazole (Protonix) 40 mg EVERY 12 HOURS IVP 07/06/20 21:00 08/05/20 20:59 07/17/20 08:11 Potassium Chloride (K-Dur) 40 meq EVERY 12 HOURS GT 07/04/20 21:00 09/26/20 12:14 07/17/20 08:11 Sodium Chloride 1,000 ml @ 50 mls/hr Q20H IV 07/12/20 11:00 08/11/20 10:59 07/17/20 08:22 Suki Camejo M.D. Jul 17, 2020 11:34
--- NOTE | 2020-07-17 11:54 | Nephrology Progress Note ---
Assessment/Plan Problem List: (1) LEANN (acute kidney injury) (2) Respiratory failure requiring intubation (3) Down's syndrome (4) Seizure disorder (5) Hypothyroidism Assessment Acute renal failure, likely due to hypotension Acute respiratory distress, hypoxia Seizure disorder Hypothyroidism Down syndrome Full code Fluid challenge with IV fluids and albumin Midodrine for BP above 100 systolic Check TSH level Check Correct level Monitor renal parameters Urine studies Per orders Plan July 17: Patient now has trach connected to vent. Left chest tube remains in place. Patient full code. Continue per consultants. Labs reviewed. July 16: Discussed with RN. Remains on ventilator. Labs reviewed. Stable from renal standpoint of view. Patient due for tracheostomy when clinically stable. July 15: On ventilator. Left chest tube remains. Full code. Labs reviewed. Electrolyte abnormalities addressed. Continue per consultants. July 14: On ventilator. Tracheostomy postponed because patient is clinically unstable. Still have left chest tube draining. Labs reviewed. Electrolyte abnormalities addressed. Continue per consultants. July 13: Remains intubated on ventilator. Discussed with RN. Unclear if the patient is due for tracheostomy today or not. Apparently the patient was reintubated again yesterday. Patient has left chest tube. Electrolyte abnormalities addressed. July 12: Remains intubated on ventilator. Due for tracheostomy tomorrow. Left chest tube present. Patient is full code. Labs reviewed. Continue as is. July 11: Remains intubated on ventilator. Due for tracheostomy July 13. Has left-sided chest tube. Stable from renal standpoint to view. Continue per consultants. July 10: Remains intubated on ventilator. Electrolyte abnormalities addressed. Supplements ordered. July 09: Intubated on ventilator. Labs reviewed. Potassium supplement given. Remains bradycardic. Continue per consultants. July 08: Labs reviewed. Electrolyte abnormalities addressed. Heart rate remains bradycardic. Continue per cardiology. Continue to monitor renal parameters and electrolytes. July 07: Labs reviewed. Electrolyte abnormalities addressed and replaced. Medication list reviewed. Heart rate remains mid 50s. Continue as is. July 06: On ventilator. Full code. Heart rate low. Will discontinue Midodrin. Continue to rest. Electrolytes within normal limit. Discussed with RN. July 05: Remains intubated. Full code. No plan for tracheostomy yet. Labs reviewed. All acceptable. Continue same management July 04: Labs reviewed. Discussed with RN. Potassium and phosphorus and magnesium replacement ordered. Hemoglobin 9.5. Patient remains full code. Continue per consultants. July 03: Lab reviewed. Renal parameters stable. Full code. Intubated. Electrolyte abnormalities addressed and replacement done. July 02: Lab reviewed. Renal parameters stable. Full code. Intubated. Has right side chest tube. Continue per consultants. July 01: Lab reviewed. Renal parameters stable. Full code. Has right chest tube. Planning process for tracheostomy. Defer to chest and general surgeon. June 30: Labs reviewed. Renal parameters stable. Remains full code. Remains on ventilator. Due for tracheostomy tomorrow. Continue per consultants. Patient has a right chest tube in place at this time. June 29: Labs reviewed. Electrolyte imbalances addressed and supplemented. Remains full code and on ventilator. Continue to monitor renal parameters. Continue per consultants. June 28: Labs reviewed. Serum potassium again low today. Potassium supplement IV and through GT given. Patient remains full code and is on steff tilator. Continue per consultants. Continue to monitor electrolytes and renal parameters. June 27: Labs reviewed. Abnormal electrolyte addressed. Remains full code. Remains vented. June 26: Day 27 of hospitalization. Full code. Labs reviewed. Hemoglobin down to 7.5. Electrolyte abnormalities addressed and corrections ordered. Continue to monitor renal parameters. Continue per consultants. Start on Levemir for blood sugar management. Questioning continuation of hydrocortisone? June 25: Labs reviewed. Potassium, phosphorus, hemoglobin, are all low. Potassium and phosphorus IV replacement given. Continue to monitor electrolytes and CBC. Patient remains full code. June 24: Lab reviewed. Low phosphorus low magnesium and low potassium was addressed. Hemoglobin drifting lower. Continue per consultants. Patient remains full code. June 23: Labs reviewed. Patient continues to be on ventilator. D5W for high sodium and also potassium chloride intravenously as supplement given. Hemoglobin 8.4. Continue to monitor electrolytes and renal parameters. June 22: Labs reviewed. Low potassium and high sodium noted. Hemoglobin 8.1 stable. Aim to correct abnormal electrolyte. Continue rest. Will give 2 boluses of D5W 500 cc. June 21: Lab reviewed. Abnormal electrolytes noted and addressed. June 20: Labs reviewed. Potassium supplement given. Patient remains full code. Continue per consultants. June 19: Lab reviewed. Electrolyte abnormalities addressed. Continue per pulmonary and ID. June 18: Lab reviewed. Status unchanged. Serum sodium 151 unchanged. Stable from renal standpoint of view. June 17: Labs reviewed. Status quo. D5W 500 cc IV ordered. Continue to monitor renal parameters. June 16: Status quo. Labs reviewed. Overall condition unchanged. Patient was transfused and hemoglobin higher. Continue current management. Patient remains full code. June 15: Status quo. Overall condition poor. Very low albumin. Edematous. Hypotensive. Hemoglobin lower. Anemia work-up ordered. I favor transfusion 2 units of packed RBCs. Patient remains full code. I favor supportive care only. Will discuss. June 14: Electrolyte abnormalities addressed. Serum creatinine lower. Continue per current management. June 13: Status unchanged. Lab reviewed. Serum potassium 2.7. IV potassium chloride ordered. Serum creatinine low at 1.6 stable. Blood pressure 90s systolic June 12: Status quo. Labs reviewed. Renal parameters stable. Serum creatinine down to 1.6. Medication list reviewed. Continues to be on midodrine. Continue per consultants. June 11: Status quo. Labs reviewed. Electrolytes adjusted. Serum creatinine down to 1.8. Continue per consultants. June 10: Status quo. Labs reviewed. Phosphorus supplement IV given. Serum creatinine 2. Continue per consultants. June 09: Requires less pressors. Albumin bolus given. 1 dose of Lasix IV ordered as the patient severely edematous. Patient serum albumin is very low. Continue per consultants. June 08: Continues to be intubated. Labs reviewed. Serum creatinine 1.9 unchanged. Blood pressure more stable. Off 1 of the pressors. Continue to monitor renal parameters. Continue per consultants. Patient now on hydrocortisone 100 mg every 8 hours. Will decrease IV fluid. Normal saline down to 50 cc an hour. June 07: Intubated. Labs reviewed. Creatinine 1.9 unchanged. Continue same treatment plan. Per consultants. Overall poor prognosis since the patient remains on pressors and her pulmonary status is worsening. June 06: Remains intubated. Labs reviewed. Creatinine 1.9. Blood pressure systolic 90s. Continue per consultants. June 05: Remains intubated. Labs reviewed. Serum creatinine lower to 2. Vancomycin level lower. Remains hypotensive on pressors. Will increase midodrine to 10 mg every 8 hours. Continue per consultants. Continue to monitor renal parameters. June 04: Patient now in ICU. Intubated. On pressors. Labs reviewed. Will increase midodrine. Aim to keep blood pressure over 100 systolic. Will give albumin bolus. Will check vancomycin level which was elevated when checked previously on June 01. Will monitor renal parameters. Continue per consultants. Subjective ROS Limited/Unobtainable: Yes Objective Objective Last 24 Hour Vital Signs Date Time Temp Pulse Resp B/P (MAP) Pulse Ox O2 Delivery O2 Flow Rate FiO2 07/17/20 10:00 48 23 93/58 (70) 97 07/17/20 09:00 51 27 100/60 (73) 97 07/17/20 08:00 Mechanical Ventilator Mechanical Ventilator Mechanical Ventilator 07/17/20 08:00 47 07/17/20 08:00 98.6 44 22 98/67 (77) 98 07/17/20 08:00 50 07/17/20 07:05 60 24 50 07/17/20 07:00 45 21 95/56 (69) 98 07/17/20 06:00 49 29 97/56 (70) 98 07/17/20 05:00 45 29 106/42 (63) 98 07/17/20 04:00 97.7 57 22 120/90 (100) 97 07/17/20 04:00 51 07/17/20 04:00 Mechanical Ventilator Mechanical Ventilator Mechanical Ventilator 07/17/20 04:00 50 07/17/20 03:33 49 24 50 07/17/20 03:00 56 25 99/48 (65) 98 07/17/20 02:00 49 28 105/42 (63) 99 07/17/20 01:00 46 33 108/83 (91) 100 07/17/20 00:00 46 07/17/20 00:00 Mechanical Ventilator Mechanical Ventilator Mechanical Ventilator 07/17/20 00:00 97.7 47 24 129/87 (101) 100 07/16/20 23:58 48 24 50 07/16/20 23:00 44 29 92/54 (67) 100 07/16/20 22:00 45 24 97/64 (75) 100 07/16/20 21:00 45 26 104/57 (73) 100 07/16/20 20:00 Mechanical Ventilator Mechanical Ventilator Mechanical Ventilator 07/16/20 20:00 65 07/16/20 20:00 47 07/16/20 20:00 97.6 47 23 110/58 (75) 100 07/16/20 19:44 49 24 65 07/16/20 19:00 47 27 97/55 (69) 100 07/16/20 18:00 54 18 119/76 (90) 100 07/16/20 17:00 98.6 48 17 96/72 (80) 100 07/16/20 16:00 47 07/16/20 16:00 47 24 105/61 (76) 100 07/16/20 16:00 Mechanical Ventilator Mechanical Ventilator Mechanical Ventilator 07/16/20 15:29 52 24 65 07/16/20 15:00 52 22 106/54 (71) 100 07/16/20 14:00 55 22 94/53 (67) 95 07/16/20 13:45 56 22 91/41 (58) 95 07/16/20 13:30 57 30 98/53 (68) 94 07/16/20 13:15 62 20 88/56 (67) 96 07/16/20 13:00 62 20 88/56 (67) 96 07/16/20 13:00 59 31 84/43 (57) 97 07/16/20 12:50 64 16 99 07/16/20 12:45 65 07/16/20 12:45 58 83/40 (54) 07/16/20 12:45 Mechanical Ventilator Mechanical Ventilator Mechanical Ventilator 07/16/20 12:00 65 07/16/20 12:00 56 07/16/20 11:50 98.5 65 24 126/66 (86) 98 Intake and Output 07/16/20 07/17/20 19:00 07:00 Intake Total 630 ml 1020 ml Output Total 530 ml 745 ml Balance 100 ml 275 ml Free Water 120 ml IV Total 600 ml 650 ml Tube Feeding 30 ml 250 ml Output Urine Total 485 ml 620 ml Chest Tube Drainage Total 45 ml 125 ml # Bowel Movements 4 1 Laboratory Tests 07/16/20 23:51: POC Whole Blood Glucose [Pending] 07/17/20 00:11: POC Whole Blood Glucose 94 07/17/20 04:50: White Blood Count 8.0, Red Blood Count 2.50L, Hemoglobin 7.9L, Hematocrit 23.8L, Mean Corpuscular Volume 95, Mean Corpuscular Hemoglobin 31.6H, Mean Corpuscular Hemoglobin Concent 33.2, Red Cell Distribution Width 17.6H, Platelet Count 66L, Mean Platelet Volume 9.0, Neutrophils (%) (Auto) , Lymphocytes (%) (Auto) , Monocytes (%) (Auto) , Eosinophils (%) (Auto) , Basophils (%) (Auto) , Sodium Level 140, Potassium Level 3.9, Chloride Level 109H, Carbon Dioxide Level 22, Anion Gap 9, Blood Urea Nitrogen 13, Creatinine 0.6, Estimat Glomerular Filtration Rate > 60, Glucose Level 112H, Calcium Level 7.1L, Phosphorus Level 2.7, Magnesium Level 2.2, Total Bilirubin 0.7, Aspartate Amino Transf (AST/SGOT) 31, Alanine Aminotransferase (ALT/SGPT) 36, Alkaline Phosphatase 77, Total Protein 5.1L, Albumin 1.2L, Globulin 3.9, Albumin/Globulin Ratio 0.3L Height (Feet): 5 Height (Inches): 3.00 Weight (Pounds): 173 General Appearance: no apparent distress Cardiovascular: bradycardia Respiratory/Chest: decreased breath sounds Abdomen: distended Keron Pitt MD Jul 17, 2020 11:54
--- NOTE | 2020-07-17 12:35 | NUR ---
NURSE NOTES: Pt repositioned, suctioned, and oral care done. No acute distress noted
--- NOTE | 2020-07-17 13:44 | NUR ---
TRANS[facility] [employer] NOTE SW faxed updated clinicals to [facility] [phone] as per request.
--- NOTE | 2020-07-17 14:21 | NUR ---
NURSE NOTES: pt turned and suctioned.
--- NOTE | 2020-07-17 16:00 | Internal Med Progress Note ---
Subjective Physician Name Guillaume Hawk Attending Physician Elayne Allred MD Current Medications Medications (Trade) Dose Ordered Sig/Katy Route PRN Reason Start Time Stop Time Status Last Admin Dose Admin Acetaminophen (Tylenol) 650 mg Q4H PRN GT For Pain 07/01/20 17:15 07/31/20 17:14 07/10/20 17:46 Chlorhexidine Gluconate (Alla-Hex 2%) 1 applic DAILY@1999 TOPIC 06/08/20 20:00 09/06/20 19:59 07/16/20 21:11 Clotrimazole (Lotrimin) 1 applic Q12HR TOPIC 06/07/20 13:00 09/05/20 12:59 07/17/20 08:14 Dextrose (Dextrose 50%) 25 ml Q30M PRN IV Hypoglycemia 06/03/20 11:30 08/28/20 11:29 Dextrose (Dextrose 50%) 50 ml Q30M PRN IV Hypoglycemia 06/03/20 11:30 08/28/20 11:29 Hydrocortisone (Solu-CORTEF) 50 mg EVERY 12 HOURS IV 07/10/20 21:00 10/04/20 20:59 07/17/20 08:13 Insulin Aspart (NovoLOG) Q6HR SUBQ 06/26/20 12:00 09/24/20 11:59 07/15/20 23:56 Insulin Detemir (Levemir) 10 units Q12HR SUBQ 06/26/20 10:00 09/24/20 09:59 07/17/20 08:15 Levothyroxine Sodium (Synthroid) 75 mcg DAILY@0630 GT 07/08/20 06:30 08/07/20 06:29 07/17/20 05:45 Loperamide HCl (Imodium) 2 mg Q6H PRN NG Diarrhea 06/24/20 10:30 07/24/20 10:29 07/01/20 11:41 Lorazepam (Ativan 2mg/ml 1ml) 2 mg Q4H PRN IV For Anxiety 07/13/20 00:45 07/20/20 00:44 07/13/20 03:06 Pantoprazole (Protonix) 40 mg EVERY 12 HOURS IVP 07/06/20 21:00 08/05/20 20:59 07/17/20 08:11 Potassium Chloride (K-Dur) 40 meq EVERY 12 HOURS GT 07/04/20 21:00 09/26/20 12:14 07/17/20 08:11 Sodium Chloride 1,000 ml @ 50 mls/hr Q20H IV 07/12/20 11:00 08/11/20 10:59 07/17/20 08:22 Allergies: Coded Allergies: No Known Allergies (Unverified , 10/16/18) Subjective in ICU,on the vent, status post tracheostomy, awake, responsive, open her eyes, WBC 8.0, Hemoglobin 7.9. Objective Last Vital Signs Date Time Temp Pulse Resp B/P (MAP) Pulse Ox O2 Delivery O2 Flow Rate FiO2 07/17/20 15:00 46 27 129/78 (95) 98 07/17/20 12:00 98.3 07/17/20 12:00 50 07/17/20 12:00 Mechanical Ventilator Mechanical Ventilator Mechanical Ventilator Laboratory Tests Test 07/16/20 23:51 07/17/20 00:11 07/17/20 04:50 POC Whole Blood Glucose Pending 94 MG/DL (74-106) White Blood Count 8.0 K/UL (4.8-10.8) Red Blood Count 2.50 M/UL (4.20-5.40) L Hemoglobin 7.9 G/DL (12.0-16.0) L Hematocrit 23.8 % (37.0-47.0) L Mean Corpuscular Volume 95 FL (80-99) Mean Corpuscular Hemoglobin 31.6 PG (27.0-31.0) H Mean Corpuscular Hemoglobin Concent 33.2 G/DL (32.0-36.0) Red Cell Distribution Width 17.6 % (11.6-14.8) H Platelet Count 66 K/UL (150-450) L Mean Platelet Volume 9.0 FL (6.5-10.1) Neutrophils (%) (Auto) % (45.0-75.0) Lymphocytes (%) (Auto) % (20.0-45.0) Monocytes (%) (Auto) % (1.0-10.0) Eosinophils (%) (Auto) % (0.0-3.0) Basophils (%) (Auto) % (0.0-2.0) Sodium Level 140 MMOL/L (136-145) Potassium Level 3.9 MMOL/L (3.5-5.1) Chloride Level 109 MMOL/L (98-107) H Carbon Dioxide Level 22 MMOL/L (21-32) Anion Gap 9 mmol/L (5-15) Blood Urea Nitrogen 13 mg/dL (7-18) Creatinine 0.6 MG/DL (0.55-1.30) Estimat Glomerular Filtration Rate > 60 mL/min (>60) Glucose Level 112 MG/DL (74-106) H Calcium Level 7.1 MG/DL (8.5-10.1) L Phosphorus Level 2.7 MG/DL (2.5-4.9) Magnesium Level 2.2 MG/DL (1.8-2.4) Total Bilirubin 0.7 MG/DL (0.2-1.0) Aspartate Amino Transf (AST/SGOT) 31 U/L (15-37) Alanine Aminotransferase (ALT/SGPT) 36 U/L (12-78) Alkaline Phosphatase 77 U/L (46-116) Total Protein 5.1 G/DL (6.4-8.2) L Albumin 1.2 G/DL (3.4-5.0) L Globulin 3.9 g/dL Albumin/Globulin Ratio 0.3 (1.0-2.7) L Intake and Output 07/16/20 07/17/20 19:00 07:00 Intake Total 630 ml 1020 ml Output Total 530 ml 745 ml Balance 100 ml 275 ml Free Water 120 ml IV Total 600 ml 650 ml Tube Feeding 30 ml 250 ml Output Urine Total 485 ml 620 ml Chest Tube Drainage Total 45 ml 125 ml # Bowel Movements 4 1 Objective General: awake, responsive, open eyes HEENT: NCAT, sclera anicteric, PERRL, EOMI Neck: Supple, tracheostomy site intact Lungs: mechanical breath sounds decreased air at the bases, no Wheeze, no rhonchi. CHEST WALL: left side chest tubes. Heart: Regular rate and rhythm, normal S1/S2, no murmurs/gallops Abdomen: soft, not tender, not distended. + bowel sounds, Morbid Obesity, PEG site intact. : Gregorio cath Extremities: No Cyanosis , clubbing, Bilateral upper extremities less edema. left upper extremity PICC line. Neuro: limited secondary to patient status, unable to follow command, bilateral upper and lower extremities contracted. Assessment/Plan Assessment/Plan Problem List: (1) HCAP (healthcare-associated pneumonia) (2) Sepsis (3) Down's syndrome (4) Dysphagia S/P PEG (5) Seizure disorder (6) Hypothyroidism (7) Acute Hypoxemic respiratory failure (8) Persistent, high grade bacteremia- r/o endocarditis (9) LEANN (10) Bilateral pneumothorax status post chest tube placement. Plan: Tolerated tube feeding @ 50 cc/hr Follow-up with laboratory and cultures decrease Hydrocortisone 25 mg IV every 12 Continue to monitor off abx transfer out of ICU to [facility] Guillaume Hawk MD Jul 17, 2020 16:00
--- NOTE | 2020-07-17 16:38 | NUR ---
NURSE NOTES: Pt had small BM. Pt cleaned, repositioned and linen changed. Pt in stable condition, SB on the monitor. All other vitals stable.
--- NOTE | 2020-07-17 17:00 | NUR ---
NURSE NOTES: spoke with Justino in radiology and let him know xray was never done today.
[2020-07-17] MEDS ORDERED: Sterile Water Irrig 1000ml IRRIG ONE (17:58)
[2020-07-17] MEDS ORDERED: NS 275ml ONE (17:58)
--- NOTE | 2020-07-17 18:20 | NUR ---
NURSE NOTES: xray @ bedside
--- NOTE | 2020-07-17 18:53 | Diagnostic Imaging Report ---
EXAM: XR Chest, 1 View CLINICAL HISTORY: DYSPNEA TECHNIQUE: Frontal view of the chest. COMPARISON: No relevant prior studies available. FINDINGS: Lungs: Diffuse airspace opacities. Pleural space: Small bilateral pleural effusions. Heart: Unremarkable. Mediastinum: Unremarkable. Bones/joints: Unremarkable. Tubes, lines and devices: Tracheostomy cannula within the thoracic inlet. Left upper extremity PICC with tip in the right atrium. Tubular structure projects over the left upper lung. Correlate clinically. IMPRESSION: Diffuse airspace opacities.
--- NOTE | 2020-07-17 18:57 | NUR ---
NURSE HAND-OFF REPORT: Latest Vital Signs: Temperature 98.5 , Pulse 48 , B/P 93 /49 , Respiratory Rate 24 , O2 SAT 95 , Mechanical Ventilator, O2 Flow Rate 15.0 . Vital Sign Comment: EKG Rhythm: Sinus Bradycardia Rhythm change?: N Notified?: Y Chaparro Oliveros MD Response: No New Orders Received Latest Osorio Fall Score: 70 Fall Risk: High Risk Safety Measures: Call light Within Reach, Bed Alarm Zone 1, Side Rails Side Rails x3, Bed position Low and Locked. Fall Precautions: Yellow Socks Report given to TAI Llamas.
--- NOTE | 2020-07-17 18:59 | NUR ---
Nurse Notes: Patient received from TAI Giron. Patient asleep arousable to name but nonverbal on with cuffed shiley 8 trach on ventilator AC 24 TV 500 FiO2 45%. BP96/51 HR50 Sinus Blair on monitor and afebrile. Left side chest thoravent set to low continuous suction. Left upper arm PICC running 1/2NS @50ml/hr asymptomatic. Gtube running Vital AF @ 50ml/hr no residual noted. Gregorio catheter draining yellow urine. Sacral and Perineal redness noted. Patient on p200 mattress, repositioned and oral care provided.
--- NOTE | 2020-07-17 20:38 | Surgery Progress Note ---
Surgery Progress Note Subjective Procedure Performed Tracheostomy Symptoms: improved, tolerating diet Objective Last 24 Hour Vital Signs Date Time Temp Pulse Resp B/P (MAP) Pulse Ox O2 Delivery O2 Flow Rate FiO2 07/17/20 20:00 97.8 52 23 87/48 (61) 96 07/17/20 20:00 45 07/17/20 20:00 Mechanical Ventilator Mechanical Ventilator Mechanical Ventilator 07/17/20 19:20 52 24 45 07/17/20 19:00 50 23 96/51 (66) 96 07/17/20 18:00 48 24 93/49 (64) 95 07/17/20 17:00 54 27 95/69 (78) 95 07/17/20 16:00 51 07/17/20 16:00 50 07/17/20 16:00 Mechanical Ventilator Mechanical Ventilator Mechanical Ventilator 07/17/20 16:00 98.5 55 23 96/50 (65) 96 07/17/20 15:00 43 24 45 07/17/20 15:00 46 27 129/78 (95) 98 07/17/20 14:00 49 26 105/66 (79) 98 07/17/20 13:00 49 24 116/54 (74) 98 07/17/20 12:00 98.3 50 24 102/65 (77) 98 07/17/20 12:00 46 07/17/20 12:00 50 07/17/20 12:00 Mechanical Ventilator Mechanical Ventilator Mechanical Ventilator 07/17/20 11:57 53 24 50 07/17/20 11:00 48 20 110/58 (75) 97 07/17/20 10:00 48 23 93/58 (70) 97 07/17/20 09:00 51 27 100/60 (73) 97 07/17/20 08:00 Mechanical Ventilator Mechanical Ventilator Mechanical Ventilator 07/17/20 08:00 47 07/17/20 08:00 98.6 44 22 98/67 (77) 98 07/17/20 08:00 50 07/17/20 07:05 60 24 50 07/17/20 07:00 45 21 95/56 (69) 98 07/17/20 06:00 49 29 97/56 (70) 98 07/17/20 05:00 45 29 106/42 (63) 98 07/17/20 04:00 97.7 57 22 120/90 (100) 97 07/17/20 04:00 51 07/17/20 04:00 Mechanical Ventilator Mechanical Ventilator Mechanical Ventilator 07/17/20 04:00 50 07/17/20 03:33 49 24 50 07/17/20 03:00 56 25 99/48 (65) 98 07/17/20 02:00 49 28 105/42 (63) 99 07/17/20 01:00 46 33 108/83 (91) 100 07/17/20 00:00 46 07/17/20 00:00 Mechanical Ventilator Mechanical Ventilator Mechanical Ventilator 07/17/20 00:00 97.7 47 24 129/87 (101) 100 07/16/20 23:58 48 24 50 07/16/20 23:00 44 29 92/54 (67) 100 07/16/20 22:00 45 24 97/64 (75) 100 07/16/20 21:00 45 26 104/57 (73) 100 I&O Intake and Output 07/16/20 07/17/20 19:00 07:00 Intake Total 630 ml 1020 ml Output Total 530 ml 745 ml Balance 100 ml 275 ml Free Water 120 ml IV Total 600 ml 650 ml Tube Feeding 30 ml 250 ml Output Urine Total 485 ml 620 ml Chest Tube Drainage Total 45 ml 125 ml # Bowel Movements 4 1 Dressing: dry Cardiovascular: RSR Respiratory: decreased breath sounds Abdomen: soft, non-tender, present bowel sounds Extremities: no tenderness, no cyanosis Laboratory Tests Test 07/16/20 23:51 07/17/20 00:11 07/17/20 04:50 POC Whole Blood Glucose Pending 94 MG/DL (74-106) White Blood Count 8.0 K/UL (4.8-10.8) Red Blood Count 2.50 M/UL (4.20-5.40) L Hemoglobin 7.9 G/DL (12.0-16.0) L Hematocrit 23.8 % (37.0-47.0) L Mean Corpuscular Volume 95 FL (80-99) Mean Corpuscular Hemoglobin 31.6 PG (27.0-31.0) H Mean Corpuscular Hemoglobin Concent 33.2 G/DL (32.0-36.0) Red Cell Distribution Width 17.6 % (11.6-14.8) H Platelet Count 66 K/UL (150-450) L Mean Platelet Volume 9.0 FL (6.5-10.1) Neutrophils (%) (Auto) % (45.0-75.0) Lymphocytes (%) (Auto) % (20.0-45.0) Monocytes (%) (Auto) % (1.0-10.0) Eosinophils (%) (Auto) % (0.0-3.0) Basophils (%) (Auto) % (0.0-2.0) Sodium Level 140 MMOL/L (136-145) Potassium Level 3.9 MMOL/L (3.5-5.1) Chloride Level 109 MMOL/L (98-107) H Carbon Dioxide Level 22 MMOL/L (21-32) Anion Gap 9 mmol/L (5-15) Blood Urea Nitrogen 13 mg/dL (7-18) Creatinine 0.6 MG/DL (0.55-1.30) Estimat Glomerular Filtration Rate > 60 mL/min (>60) Glucose Level 112 MG/DL (74-106) H Calcium Level 7.1 MG/DL (8.5-10.1) L Phosphorus Level 2.7 MG/DL (2.5-4.9) Magnesium Level 2.2 MG/DL (1.8-2.4) Total Bilirubin 0.7 MG/DL (0.2-1.0) Aspartate Amino Transf (AST/SGOT) 31 U/L (15-37) Alanine Aminotransferase (ALT/SGPT) 36 U/L (12-78) Alkaline Phosphatase 77 U/L (46-116) Total Protein 5.1 G/DL (6.4-8.2) L Albumin 1.2 G/DL (3.4-5.0) L Globulin 3.9 g/dL Albumin/Globulin Ratio 0.3 (1.0-2.7) L Plan Problems: (1) Respiratory distress Assessment & Plan: Respiratory insufficiency requiring prolonged ventilator support. Patient on minimal vent settings right now currently in stable but unfortunately not safe for extubation. Tracheostomy is indicated recommended. I discussed case with pulmonology team ICU team medical teams. Patient unable to make decisions and her current condition and given her history. The care team has been contacted and will be reviewed for evaluation and consideration of the tracheostomy. If consented I think it is reasonable for tracheostomy given patient's current CODE STATUS care plan and goals of care. Extubation his current status is potentially high risk for reintubation emergency complication. We will plan for tracheostomy if consent is obtained. Thank you for let me participate patient's care will follow with recommendations will plan for trach when ready wean fi02 s/p trach 10?8 (2) Encephalopathy chronic (3) Dysphagia (4) Down's syndrome (5) Sepsis (6) Acute respiratory failure (7) Pneumonia (8) Trisomy 21, Down syndrome (9) LEANN (acute kidney injury) (10) Bacteremia (11) Hypokalemia (12) Anemia (13) Diarrhea (14) Hypernatremia (15) Pneumothorax (16) Pneumothorax, right Assessment & Plan: right ptx. s/p chest tube tube removed 07/11 left ptx tube placed 07/10 (17) Cardiac arrest (18) ARDS (adult respiratory distress syndrome) (19) Septic shock (20) HCAP (healthcare-associated pneumonia) (21) Respiratory failure requiring intubation (22) Seizure disorder (23) Hypothyroidism Mark Gordon Jul 17, 2020 20:38
[2020-07-17] MEDS: Dyna-Hex 2% Top Sol 2oz TOPIC SCH (20:41)
--- NOTE | 2020-07-17 22:00 | NUR ---
Nurse Notes: Patient asleep arousable to light shaking but nonverbal on with cuffed shiley 8 trach on ventilator AC 24 TV 500 FiO2 45%. BP93/46 HR48 Sinus Blair on monitor and afebrile. Left side chest thoravent set to low continuous suction. Left upper arm PICC running 1/2NS @50ml/hr asymptomatic. Gtube running Vital AF @ 50ml/hr. Gregorio catheter draining yellow urine. Patient repositioned and oral care provided.
--- NOTE | 2020-07-17 23:35 | NUR ---
NURSE NOTES: Received patient from TAI Llamas under the care of Dr. Allred for the admitting dx. of PNA, R/O Covid. Patient has no allergies noted. On fall, aspiration, and seizure precautions observed and maintained at all times. Patient has Down syndrome and is oriented to self and responds to her name. Patient is noted with trach size shiley 8 with settings of AC-24 TV-500 FiO2-45%. Noted with GT feeding Vital AF at 50cc tolerated well. Patient has thoravent on L chest attached to low continuous suction. Patient has bilateral soft wrist restrains. Will continue with current plan of care.
--- NOTE | 2020-07-17 23:39 | NUR ---
NURSE HAND-OFF REPORT: Important Events on Shift: Bradycardic, HR 40 Patient Status: Diet: vital AF @50ml/hr Pending Orders: Pending Results/Labs: Pending MD notification: Latest Vital Signs: Temperature 97.8 , Pulse 40 , B/P 93 /46 , Respiratory Rate 24 , O2 SAT 97 , Mechanical Ventilator, O2 Flow Rate 15.0 . Vital Sign Comment: Sinus Blair, Daneshrad aware. EKG Rhythm: Sinus Bradycardia Rhythm change?: N MD Notified?: Y Chaparro Oliveros MD Response: No New Orders Received Latest Osorio Fall Score: 70 Fall Risk: High Risk Safety Measures: Call light Within Reach, Bed Alarm Zone 1, Side Rails Side Rails x3, Bed position Low and Locked. Fall Precautions: Yellow Socks Report given to TAI Perdomo.
[2020-07-18] VITALS (7 sets, daily range): BP systolic 100–115; BP diastolic 49–66
[2020-07-18] MEDS: NovoLOG Insulin Flexpen SUBQ SCH ×5 (00:28→23:57)
--- NOTE | 2020-07-18 01:00 | NUR ---
NURSE NOTES: Patien noted asleep. FLACC score of 0/10 noted. No apparent distress or discomfort noted. Patient appears to be tolerating vent settings well as saturation is noted to be 100%. Chest tube draining well noted with serous output.. Bed locked and alarm armed. Safety checks performed and maintained at all times. Will continue with current plan of care.
--- NOTE | 2020-07-18 03:00 | NUR ---
NURSE NOTES: Patient noted with small BM. Cleaned, repositioned and linen changed. Noted SB on the monitor. Noted FLACC score of 0/10. No sign of discomfort or distress at this time. Gregorio draining well noted with yellow urine with some sediments. Will continue to monitor.
--- NOTE | 2020-07-18 05:00 | NUR ---
NURSE NOTES: Patient noted asleep. FLACC score of 0/10 noted. No apparent distress or discomfort noted. Patient appears to be tolerating vent settings well as saturation is noted to be 100%. Chest tube draining well attached to low continuous suction, noted with serous output. Bed locked and alarm armed. Safety checks performed and maintained at all times. Will continue with current plan of care.
--- NOTE | 2020-07-18 07:15 | NUR ---
NURSE HAND-OFF REPORT: Important Events on Shift: Transfer from ICU Patient Status: stable Diet: GT feeding Pending Orders: Pending Results/Labs: Pending notification: Latest Vital Signs: Temperature 97.7 , Pulse 60 , B/P 113 /55 , Respiratory Rate 24 , O2 SAT 96 , Mechanical Ventilator, O2 Flow Rate 15.0 . Vital Sign Comment: EKG Rhythm: Sinus Bradycardia Rhythm change?: N MD Notified?: Marce Oliveros MD Response: No New Orders Received Latest Osorio Fall Score: 70 Fall Risk: High Risk Safety Measures: Call light Within Reach, Bed Alarm Zone 1, Side Rails Side Rails x3, Bed position Low and Locked. Fall Precautions: Yellow Socks Report given to TAI Trotter.
--- NOTE | 2020-07-18 07:34 | NUR ---
NURSE NOTES: Received patient in bed, A/O to self.Noted with trach size shiley 8 with settings of AC-24 TV-500 FiO2-45% tolerated well. In no apparent distress noted. On GT feeding Vital AF at 50cc tolerated well. Gtube is intact patent and flushed well. No residual notet. Patient has thoravent on L chest attached to low continuous suction. Patient has bilateral soft wrist restrains. Picc line on L upper Arm running 1/2 NS @ 50 ml/hr, intact, patent and flushed well. No infiltration noted. With sarah catheter, draining color yellowish urine with 100ml on the bag. Safety measures in place. Will continue to monitor.
--- NOTE | 2020-07-18 08:04 | Pulmonology Progress Note ---
Subjective ROS Limited/Unobtainable: Yes Allergies: Coded Allergies: No Known Allergies (Unverified , 10/16/18) Subjective transferred to [facility] no fevers, no leukocytosis no resp distress Objective Last 24 Hour Vital Signs Date Time Temp Pulse Resp B/P (MAP) Pulse Ox O2 Delivery O2 Flow Rate FiO2 07/18/20 04:00 61 07/18/20 04:00 Mechanical Ventilator Mechanical Ventilator Mechanical Ventilator 07/18/20 04:00 97.7 60 24 113/55 (74) 96 07/18/20 04:00 45 07/18/20 02:59 50 24 45 07/18/20 00:00 97.9 52 24 104/63 (77) 93 07/18/20 00:00 Mechanical Ventilator Mechanical Ventilator Mechanical Ventilator 07/17/20 23:24 40 24 45 07/17/20 23:00 45 24 96/56 (69) 93 07/17/20 22:00 48 28 93/46 (62) 97 07/17/20 21:00 52 26 93/53 (66) 94 07/17/20 20:00 97.8 52 23 87/48 (61) 96 07/17/20 20:00 52 07/17/20 20:00 45 07/17/20 20:00 Mechanical Ventilator Mechanical Ventilator Mechanical Ventilator 07/17/20 19:20 52 24 45 07/17/20 19:00 50 23 96/51 (66) 96 07/17/20 18:00 48 24 93/49 (64) 95 07/17/20 17:00 54 27 95/69 (78) 95 07/17/20 16:00 51 07/17/20 16:00 50 07/17/20 16:00 Mechanical Ventilator Mechanical Ventilator Mechanical Ventilator 07/17/20 16:00 98.5 55 23 96/50 (65) 96 07/17/20 15:00 43 24 45 07/17/20 15:00 46 27 129/78 (95) 98 07/17/20 14:00 49 26 105/66 (79) 98 07/17/20 13:00 49 24 116/54 (74) 98 07/17/20 12:00 98.3 50 24 102/65 (77) 98 07/17/20 12:00 46 07/17/20 12:00 50 07/17/20 12:00 Mechanical Ventilator Mechanical Ventilator Mechanical Ventilator 07/17/20 11:57 53 24 50 07/17/20 11:00 48 20 110/58 (75) 97 07/17/20 10:00 48 23 93/58 (70) 97 07/17/20 09:00 51 27 100/60 (73) 97 07/17/20 08:00 Mechanical Ventilator Mechanical Ventilator Mechanical Ventilator 07/17/20 08:00 47 07/17/20 08:00 98.6 44 22 98/67 (77) 98 07/17/20 08:00 50 Intake and Output 07/17/20 07/18/20 19:00 07:00 Intake Total 1130 ml 810 ml Output Total 1080 ml 650 ml Balance 50 ml 160 ml Free Water 60 ml 60 ml IV Total 550 ml 200 ml Tube Feeding 520 ml 550 ml Output Urine Total 1065 ml 650 ml Chest Tube Drainage Total 15 ml # Bowel Movements 1 1 Objective Status: on Vent AC 500-24- 45% no PEEP Condition: critical HEENT: atraumatic, normocephalic, face with Down features, Neck: trach Shiley #8, in place, intact' secretions small amount, thin consistency, clear Lungs: R sided CT with serosanguineous drainage , scattered rhonchi Heart: SR with BB, + 1 edema BLE Abdomen: soft, non-tender, G tube Decubiti: +1 edema BLE Lines: LUE PICC intact Laboratory Tests 07/18/20 00:09: POC Whole Blood Glucose 146H 07/18/20 06:02: POC Whole Blood Glucose [Pending] Current Medications Medications (Trade) Dose Ordered Sig/Katy Route PRN Reason Start Time Stop Time Status Last Admin Dose Admin Acetaminophen (Tylenol) 650 mg Q4H PRN GT For Pain 07/01/20 17:15 07/31/20 17:14 07/10/20 17:46 Chlorhexidine Gluconate (Alla-Hex 2%) 1 applic DAILY@1999 TOPIC 06/08/20 20:00 09/06/20 19:59 07/17/20 20:41 Clotrimazole (Lotrimin) 1 applic Q12HR TOPIC 06/07/20 13:00 09/05/20 12:59 07/17/20 20:42 Dextrose (Dextrose 50%) 25 ml Q30M PRN IV Hypoglycemia 06/03/20 11:30 11/20/20 11:29 Dextrose (Dextrose 50%) 50 ml Q30M PRN IV Hypoglycemia 06/03/20 11:30 08/28/20 11:29 Hydrocortisone (Solu-CORTEF) 25 mg Q12H IV 07/17/20 22:00 10/15/20 21:59 Insulin Aspart (NovoLOG) Q6HR SUBQ 06/26/20 12:00 09/24/20 11:59 07/18/20 06:05 Insulin Detemir (Levemir) 10 units Q12HR SUBQ 06/26/20 10:00 09/24/20 09:59 07/17/20 20:43 Levothyroxine Sodium (Synthroid) 75 mcg DAILY@0630 GT 07/08/20 06:30 08/07/20 06:29 07/18/20 06:29 Loperamide HCl (Imodium) 2 mg Q6H PRN NG Diarrhea 06/24/20 10:30 07/24/20 10:29 07/01/20 11:41 Lorazepam (Ativan 2mg/ml 1ml) 2 mg Q4H PRN IV For Anxiety 07/13/20 00:45 07/20/20 00:44 07/13/20 03:06 Pantoprazole (Protonix) 40 mg EVERY 12 HOURS IVP 07/06/20 21:00 08/05/20 20:59 07/17/20 20:41 Potassium Chloride (K-Dur) 40 meq EVERY 12 HOURS GT 07/04/20 21:00 09/26/20 12:14 07/17/20 20:41 Sodium Chloride 1,000 ml @ 50 mls/hr Q20H IV 07/12/20 11:00 08/11/20 10:59 07/18/20 06:56 Assessment/Plan Assessment/Plan ASSESSMENT s/p cardiopulmonary arrest Acute hypoxemic respiratory failure requiring intubation Failure to wean s/p trach 07/16 Sepsis with shock Persistent CONS bacteremia Pneumonia ANIRUDH Pulm edema/ ARDS R PTX, s/p CT placement 06/29 LEANN due to ATN 2 to hypotension Down syndrome Hypothyroidism Seizure disorder Anemia, requiring blood transfusion DM PLAN OF CARE [facility] vent support, pulmonary toilet trach care CXR 07/17 - Diffuse airspace opacities. Venous duplex BLE NGT, CT still there, PNT resolved, need to be removed ABG noted : decrease AC to 22, repeat ABG in am on steroids-Hydrocortisone, decreased frequency off pressors; off midodrine now as well Echo with pEF 65% s/p abx COVID-19 x3 NGT prior persistent CONS bacteremia Echo no evidence of vegetation however BCX 06/06, 06/14, 06/16, 06/27 NGT per ID recs keep off abx unless febrile or evidence of infection 07/13 UCX +PSA colonizer as per ID Legionella Ag urine, blasto Ab, Histo Ab, HIV ab screen, FRANCIS, ANCA neg now SCX 07/13 + Proteus, awaiting ID recs, possibly colonizer stool OB + x1 and - x 2 prior off Heparin given on SCD s/p 3 u PRBC GI procedures on hold given current condition HH stabilized GI prophylaxis creat prior worsened due to Vanco , now resolved gentle IVF avoid nephrotoxic correct electrolytes as needed fup with further nephro recs continue levothyroxine , TSH within normal limits BS management with LA Levemir and SSI as needed seizure precautions, supportive care case discussed and evaluated by supervising physician Carla Jj NP Jul 18, 2020 08:04
[2020-07-18] MEDS: Pantoprazole Inj IVP SCH ×2 (09:13→20:32)
[2020-07-18] MEDS: Levemir Flexpen SUBQ SCH ×2 (09:29→20:35)
[2020-07-18] MEDS: Hydrocortisone 100mg Inj IV SCH ×2 (10:25→22:17)
--- NOTE | 2020-07-18 11:01 | Nephrology Progress Note ---
Assessment/Plan Problem List: (1) LEANN (acute kidney injury) (2) Respiratory failure requiring intubation (3) Down's syndrome (4) Seizure disorder (5) Hypothyroidism Assessment Acute renal failure, likely due to hypotension Acute respiratory distress, hypoxia Seizure disorder Hypothyroidism Down syndrome Full code Fluid challenge with IV fluids and albumin Midodrine for BP above 100 systolic Check TSH level Check Correct level Monitor renal parameters Urine studies Per orders Plan July 18: Trached and vent. Still has left chest tube to drain. No chemistry panel today. Continue per consultants. Patient full code. July 17: Patient now has trach connected to vent. Left chest tube remains in place. Patient full code. Continue per consultants. Labs reviewed. July 16: Discussed with RN. Remains on ventilator. Labs reviewed. Stable from renal standpoint of view. Patient due for tracheostomy when clinically stable. July 15: On ventilator. Left chest tube remains. Full code. Labs reviewed. Electrolyte abnormalities addressed. Continue per consultants. July 14: On ventilator. Tracheostomy postponed because patient is clinically unstable. Still have left chest tube draining. Labs reviewed. Electrolyte abnormalities addressed. Continue per consultants. July 13: Remains intubated on ventilator. Discussed with RN. Unclear if the patient is due for tracheostomy today or not. Apparently the patient was reintubated again yesterday. Patient has left chest tube. Electrolyte abnormalities addressed. July 12: Remains intubated on ventilator. Due for tracheostomy tomorrow. Left chest tube present. Patient is full code. Labs reviewed. Continue as is. July 11: Remains intubated on ventilator. Due for tracheostomy July 13. Has left-sided chest tube. Stable from renal standpoint to view. Continue per consultants. July 10: Remains intubated on ventilator. Electrolyte abnormalities addressed. Supplements ordered. July 09: Intubated on ventilator. Labs reviewed. Potassium supplement given. Remains bradycardic. Continue per consultants. July 08: Labs reviewed. Electrolyte abnormalities addressed. Heart rate remains bradycardic. Continue per cardiology. Continue to monitor renal parameters and electrolytes. July 07: Labs reviewed. Electrolyte abnormalities addressed and replaced. Medication list reviewed. Heart rate remains mid 50s. Continue as is. July 06: On ventilator. Full code. Heart rate low. Will discontinue Midodrin. Continue to rest. Electrolytes within normal limit. Discussed with RN. July 05: Remains intubated. Full code. No plan for tracheostomy yet. Labs reviewed. All acceptable. Continue same management July 04: Labs reviewed. Discussed with RN. Potassium and phosphorus and magnesium replacement ordered. Hemoglobin 9.5. Patient remains full code. Continue per consultants. July 03: Lab reviewed. Renal parameters stable. Full code. Intubated. Electrolyte abnormalities addressed and replacement done. July 02: Lab reviewed. Renal parameters stable. Full code. Intubated. Has right side chest tube. Continue per consultants. July 01: Lab reviewed. Renal parameters stable. Full code. Has right chest tube. Planning process for tracheostomy. Defer to chest and general surgeon. June 30: Labs reviewed. Renal parameters stable. Remains full code. Remains on ventilator. Due for tracheostomy tomorrow. Continue per bekah tanabril. Patient has a right chest tube in place at this time. June 29: Labs reviewed. Electrolyte imbalances addressed and supplemented. Remains full code and on ventilator. Continue to monitor renal parameters. Continue per consultants. June 28: Labs reviewed. Serum potassium again low today. Potassium supplement IV and through GT given. Patient remains full code and is on ventilator. Continue per consultants. Continue to monitor electrolytes and renal parameters. June 27: Labs reviewed. Abnormal electrolyte addressed. Remains full code. Remains vented. June 26: Day 27 of hospitalization. Full code. Labs reviewed. Hemoglobin down to 7.5. Electrolyte abnormalities addressed and corrections ordered. Continue to monitor renal parameters. Continue per consultants. Start on Levemir for blood sugar management. Questioning continuation of hydrocortisone? June 25: Labs reviewed. Potassium, phosphorus, hemoglobin, are all low. Potassium and phosphorus IV replacement given. Continue to monitor electrolytes and CBC. Patient remains full code. June 24: Lab reviewed. Low phosphorus low magnesium and low potassium was addressed. Hemoglobin drifting lower. Continue per consultants. Patient remains full code. June 23: Labs reviewed. Patient continues to be on ventilator. D5W for high sodium and also potassium chloride intravenously as supplement given. Hemoglobin 8.4. Continue to monitor electrolytes and renal parameters. June 22: Labs reviewed. Low potassium and high sodium noted. Hemoglobin 8.1 stable. Aim to correct abnormal electrolyte. Continue rest. Will give 2 boluses of D5W 500 cc. June 21: Lab reviewed. Abnormal electrolytes noted and addressed. June 20: Labs reviewed. Potassium supplement given. Patient remains full code. Continue per consultants. June 19: Lab reviewed. Electrolyte abnormalities addressed. Continue per pulmonary and ID. June 18: Lab reviewed. Status unchanged. Serum sodium 151 unchanged. Stable from renal standpoint of view. June 17: Labs reviewed. Status quo. D5W 500 cc IV ordered. Continue to monitor renal parameters. June 16: Status quo. Labs reviewed. Overall condition unchanged. Patient was transfused and hemoglobin higher. Continue current management. Patient remains full code. June 15: Status quo. Overall condition poor. Very low albumin. Edematous. Hypotensive. Hemoglobin lower. Anemia work-up ordered. I favor transfusion 2 units of packed RBCs. Patient remains full code. I favor supportive care only. Will discuss. June 14: Electrolyte abnormalities addressed. Serum creatinine lower. Continue per current management. June 13: Status unchanged. Lab reviewed. Serum potassium 2.7. IV potassium chloride ordered. Serum creatinine low at 1.6 stable. Blood pressure 90s systolic June 12: Status quo. Labs reviewed. Renal parameters stable. Serum creatinine down to 1.6. Medication list reviewed. Continues to be on midodrine. Continue per consultants. June 11: Status quo. Labs reviewed. Electrolytes adjusted. Serum creatinine down to 1.8. Continue per consultants. June 10: Status quo. Labs reviewed. Phosphorus supplement IV given. Serum creatinine 2. Continue per consultants. June 09: Requires less pressors. Albumin bolus given. 1 dose of Lasix IV ordered as the patient severely edematous. Patient serum albumin is very low. Continue per consultants. June 08: Continues to be intubated. Labs reviewed. Serum creatinine 1.9 unchanged. Blood pressure more stable. Off 1 of the pressors. Continue to monitor renal parameters. Continue per consultants. Patient now on hydrocortisone 100 mg every 8 hours. Will decrease IV fluid. Normal saline down to 50 cc an hour. June 07: Intubated. Labs reviewed. Creatinine 1.9 unchanged. Continue same treatment plan. Per consultants. Overall poor prognosis since the patient remains on pressors and her pulmonary status is worsening. June 06: Remains intubated. Labs reviewed. Creatinine 1.9. Blood pressure systolic 90s. Continue per consultants. June 05: Remains intubated. Labs reviewed. Serum creatinine lower to 2. Vancomycin level lower. Remains hypotensive on pressors. Will increase midodrine to 10 mg every 8 hours. Continue per consultants. Continue to monitor renal parameters. June 04: Patient now in ICU. Intubated. On pressors. Labs reviewed. Will increase midodrine. Aim to keep blood pressure over 100 systolic. Will give albumin bolus. Will check vancomycin level which was elevated when checked previously on June 01. Will monitor renal parameters. Continue per consultants. Subjective ROS Limited/Unobtainable: Yes Objective Objective Last 24 Hour Vital Signs Date Time Temp Pulse Resp B/P (MAP) Pulse Ox O2 Delivery O2 Flow Rate FiO2 07/18/20 08:00 Mechanical Ventilator Mechanical Ventilator Mechanical Ventilator 07/18/20 08:00 48 07/18/20 08:00 45 07/18/20 08:00 97.7 57 24 106/58 (74) 96 07/18/20 07:05 57 24 45 07/18/20 04:00 61 07/18/20 04:00 Mechanical Ventilator Mechanical Ventilator Mechanical Ventilator 07/18/20 04:00 97.7 60 24 113/55 (74) 96 07/18/20 04:00 45 07/18/20 02:59 50 24 45 07/18/20 00:00 97.9 52 24 104/63 (77) 93 07/18/20 00:00 Mechanical Ventilator Mechanical Ventilator Mechanical Ventilator 07/17/20 23:24 40 24 45 07/17/20 23:00 45 24 96/56 (69) 93 07/17/20 22:00 48 28 93/46 (62) 97 07/17/20 21:00 52 26 93/53 (66) 94 07/17/20 20:00 97.8 52 23 87/48 (61) 96 07/17/20 20:00 52 07/17/20 20:00 45 07/17/20 20:00 Mechanical Ventilator Mechanical Ventilator Mechanical Ventilator 07/17/20 19:20 52 24 45 07/17/20 19:00 50 23 96/51 (66) 96 07/17/20 18:00 48 24 93/49 (64) 95 07/17/20 17:00 54 27 95/69 (78) 95 07/17/20 16:00 51 07/17/20 16:00 50 07/17/20 16:00 Mechanical Ventilator Mechanical Ventilator Mechanical Ventilator 07/17/20 16:00 98.5 55 23 96/50 (65) 96 07/17/20 15:00 43 24 45 07/17/20 15:00 46 27 129/78 (95) 98 07/17/20 14:00 49 26 105/66 (79) 98 07/17/20 13:00 49 24 116/54 (74) 98 07/17/20 12:00 98.3 50 24 102/65 (77) 98 07/17/20 12:00 46 07/17/20 12:00 50 07/17/20 12:00 Mechanical Ventilator Mechanical Ventilator Mechanical Ventilator 07/17/20 11:57 53 24 50 Intake and Output 07/17/20 07/18/20 19:00 07:00 Intake Total 1130 ml 810 ml Output Total 1080 ml 650 ml Balance 50 ml 160 ml Free Water 60 ml 60 ml IV Total 550 ml 200 ml Tube Feeding 520 ml 550 ml Output Urine Total 1065 ml 650 ml Chest Tube Drainage Total 15 ml # Bowel Movements 1 1 No chemistry panel done today laboratory Tests 07/18/20 00:09: POC Whole Blood Glucose 146H 07/18/20 06:02: POC Whole Blood Glucose [Pending] 07/18/20 09:28: POC Whole Blood Glucose 99 Height (Feet): 5 Height (Inches): 3.00 Weight (Pounds): 173 General Appearance: no apparent distress Cardiovascular: normal rate Respiratory/Chest: decreased breath sounds Abdomen: soft Keron Pitt MD Jul 18, 2020 11:01
[2020-07-18] MEDS ORDERED: NS 275ml ONE (12:03)
[2020-07-18] MEDS ORDERED: 1/2 NS 1000ml IV ONE (12:03)
--- NOTE | 2020-07-18 12:56 | Surgery Progress Note ---
Surgery Progress Note Subjective Procedure Performed Tracheostomy Additional Comments no acute events left CT placed to water seal AM CXR ordered Objective Last 24 Hour Vital Signs Date Time Temp Pulse Resp B/P (MAP) Pulse Ox O2 Delivery O2 Flow Rate FiO2 07/18/20 12:00 45 07/18/20 12:00 Mechanical Ventilator Mechanical Ventilator Mechanical Ventilator 07/18/20 12:00 98.8 57 24 100/64 (76) 97 07/18/20 11:48 53 07/18/20 11:03 54 24 45 07/18/20 08:00 Mechanical Ventilator Mechanical Ventilator Mechanical Ventilator 07/18/20 08:00 48 07/18/20 08:00 45 07/18/20 08:00 97.7 57 24 106/58 (74) 96 07/18/20 07:05 57 24 45 07/18/20 04:00 61 07/18/20 04:00 Mechanical Ventilator Mechanical Ventilator Mechanical Ventilator 07/18/20 04:00 97.7 60 24 113/55 (74) 96 07/18/20 04:00 45 07/18/20 02:59 50 24 45 07/18/20 00:00 97.9 52 24 104/63 (77) 93 07/18/20 00:00 Mechanical Ventilator Mechanical Ventilator Mechanical Ventilator 07/17/20 23:24 40 24 45 07/17/20 23:00 45 24 96/56 (69) 93 07/17/20 22:00 48 28 93/46 (62) 97 07/17/20 21:00 52 26 93/53 (66) 94 07/17/20 20:00 97.8 52 23 87/48 (61) 96 07/17/20 20:00 52 07/17/20 20:00 45 07/17/20 20:00 Mechanical Ventilator Mechanical Ventilator Mechanical Ventilator 07/17/20 19:20 52 24 45 07/17/20 19:00 50 23 96/51 (66) 96 07/17/20 18:00 48 24 93/49 (64) 95 07/17/20 17:00 54 27 95/69 (78) 95 07/17/20 16:00 51 07/17/20 16:00 50 07/17/20 16:00 Mechanical Ventilator Mechanical Ventilator Mechanical Ventilator 07/17/20 16:00 98.5 55 23 96/50 (65) 96 07/17/20 15:00 43 24 45 07/17/20 15:00 46 27 129/78 (95) 98 07/17/20 14:00 49 26 105/66 (79) 98 07/17/20 13:00 49 24 116/54 (74) 98 I&O Intake and Output 07/17/20 07/18/20 19:00 07:00 Intake Total 1130 ml 810 ml Output Total 1080 ml 650 ml Balance 50 ml 160 ml Free Water 60 ml 60 ml IV Total 550 ml 200 ml Tube Feeding 520 ml 550 ml Output Urine Total 1065 ml 650 ml Chest Tube Drainage Total 15 ml # Bowel Movements 1 1 Cardiovascular: RSR Respiratory: decreased breath sounds Abdomen: soft, non-tender, present bowel sounds Extremities: no tenderness, no cyanosis Laboratory Tests Test 07/18/20 00:09 07/18/20 06:02 07/18/20 09:28 POC Whole Blood Glucose 146 MG/DL (74-106) H Pending 99 MG/DL (74-106) Plan Problems: (1) Respiratory distress Assessment & Plan: Respiratory insufficiency requiring prolonged ventilator support. Patient on minimal vent settings right now currently in stable but unfortunately not safe for extubation. Tracheostomy is indicated recommended. I discussed case with pulmonology team ICU team medical teams. Patient unable to make decisions and her current condition and given her history. The care team has been contacted and will be reviewed for evaluation and consideration of the tracheostomy. If consented I think it is reasonable for tracheostomy given patient's current CODE STATUS care plan and goals of care. Extubation his current status is potentially high risk for reintubation emergency complication. We will plan for tracheostomy if consent is obtained. Thank you for let me participate patient's care will follow with recommendations will plan for trach when ready wean fi02 s/p trach 10?8 (2) Encephalopathy chronic (3) Dysphagia (4) Down's syndrome (5) Sepsis (6) Acute respiratory failure (7) Pneumonia (8) Trisomy 21, Down syndrome (9) LEANN (acute kidney injury) (10) Bacteremia (11) Hypokalemia (12) Anemia (13) Diarrhea (14) Hypernatremia (15) Pneumothorax (16) Pneumothorax, right Assessment & Plan: right ptx. s/p chest tube tube removed 07/11 left ptx tube placed 07/[address] to water seal (17) Cardiac arrest (18) ARDS (adult respiratory distress syndrome) (19) Septic shock (20) HCAP (healthcare-associated pneumonia) (21) Respiratory failure requiring intubation (22) Seizure disorder (23) Hypothyroidism Mark Gordon Jul 18, 2020 12:56
--- NOTE | 2020-07-18 16:35 | Infectious Diseases Prog Note ---
Assessment/Plan ASSESSMENT: sp code blue 06/03 Septic Shock; SP Fever, recurrent- low grade -SP Leukocytosis; recurrent; SP 10/5 u/a -, nit neg, leuk +2; ucx PsA (I Genta); colonizer sp cx P, mirabilsi (R levo); colonzier -06/27 Bcx Neg -06/17 u/a no pyuria -06/16 Bcx Neg(Picc line) -06/14 Bcx Neg ucx Neg sp cx C. parapsilopsis -06/03 u/a no pyuria Pneumonia.- COVID 19 neg x3 Acute hypoxic resp failure on VM> NRB 15l 100%; hypoxic on ABG> now VDRF 06/03- Fio2 80% >100% 06/05> 60% 06/09 >80% 06/10 >95% 06/18 >90% 06/22 >60% 06/23 R tension Pneumothroax sp CT 06/29 07/17 sp trach 07/17 CXR: Diffuse airspace opacities. 07/16 CXR: bilateral infiltrates are all unchanged. 07/13 CXR: Extensive bilateral airspace opacities, right greater than left, consistent with multifocal infiltrate worse pulmonary edema. This is similar in appearance to the prior study. Worsening, small left pleural effusion. This may be secondary to redistribution as the right-sided pleural effusion has mildly improved. -06/30 CXR: Interim complete reexpansion of right lung without evidence of residual pneumothorax. Bilateral diffuse and extensive infiltrates. Markedly improved chest wall subcutaneous emphysema -06/29 CXR: Interim reexpansion of previously demonstrated right pneumothorax, status post large bore chest tube placement. -06/22 CXR: Improved aeration of both lungs. -06/13 CXR:Small bilateral pleural effusions with minor edema. Stable edema with mild worsening in the degree of pleural effusion on the right. -06/09 sp cx Neg 06/08 CXR: Extensive bilateral interstitial and airspace disease appears similar to the prior exam. Moderate to large bilateral pleural effusions appear unchanged. 06/05 CXR: Increasing left upper lobe dense consolidation and likely increasing bilateral pleural fluid. Persistent diffuse dense consolidation elsewhere -06/03 sp cx normal resp marie -06/02 CXR: Increased atelectasis of the right lung, since prior exam of 3 days earlier. New or increased right pleural effusion. Increased left basilar consolidation and/or pleural fluid -COVID Rapid PCR neg 05/31, 05/31, 06/03 -05/30 spc x Group G strep -05/30 CXR: Reduced lung volumes. Patchy bilateral predominantly interstitial pulmonary opacities. Could be from edema and/or pneumonia. There is a broader differential. -legionella ag urine, blasto ab, Histo ab, HIV ab screen, FRNACIS, ANCA neg Persistent, high grade bacteremia- -05/30 Bcx 4/4 sets S. haemolyticus; 05/31 Bcx 3/4 S/ epi; 06/04 Bcx 1.4 S. warnerri; 06/06 Bcx Neg -2d echo: no vegetaions seen ua/ wbc 10-15, nit neg, leuk +1; ucx Neg LEANN; -supratherapeutic vanco levels -Seizure disorder. - Hypothyroidism. - Down syndrome. History of PEG tube placement. [place] resident PLAN: Monitor off abx unless febrile, increasing WBC and/or HD unstable 06/22 SP Meropenem #18, IV Amikacin #7 06/12/20 SP Daptomycin #11 06/10 SP MIcafungin #7, Linezolid #5 06/05 SP Azithromycin #7/7 06/03 SP Ceftriaxone #2 06/02 SP IV Vancomycin #4, Zosyn #4 05/30 SP Cefepime x1, Flagyl x1 - Monitor CBC, BMP. .f/u cx - COVID neg x3 - Monitor chest x-ray. -PEG/Trach care -aspiration precautions Thank you, Dr. Allred, for allowing me to participate in the care of this patient. I will follow the patient with you at this hospitalization. Discussed with RN Subjective Allergies: Coded Allergies: No Known Allergies (Unverified , 10/16/18) afebrile remains intubated; Fio2 45% no leukocytosis off abx transferred out of ICU to [facility] sp trach yesterday Objective Last 24 Hour Vital Signs Date Time Temp Pulse Resp B/P (MAP) Pulse Ox O2 Delivery O2 Flow Rate FiO2 07/18/20 16:00 Mechanical Ventilator Mechanical Ventilator Mechanical Ventilator 07/18/20 16:00 45 07/18/20 15:06 52 22 45 07/18/20 12:00 45 07/18/20 12:00 Mechanical Ventilator Mechanical Ventilator Mechanical Ventilator 07/18/20 12:00 98.8 57 24 100/64 (76) 97 07/18/20 11:48 53 07/18/20 11:03 54 24 45 07/18/20 08:00 Mechanical Ventilator Mechanical Ventilator Mechanical Ventilator 07/18/20 08:00 48 07/18/20 08:00 45 07/18/20 08:00 97.7 57 24 106/58 (74) 96 07/18/20 07:05 57 24 45 07/18/20 04:00 61 07/18/20 04:00 Mechanical Ventilator Mechanical Ventilator Mechanical Ventilator 07/18/20 04:00 97.7 60 24 113/55 (74) 96 07/18/20 04:00 45 07/18/20 02:59 50 24 45 07/18/20 00:00 97.9 52 24 104/63 (77) 93 07/18/20 00:00 Mechanical Ventilator Mechanical Ventilator Mechanical Ventilator 07/17/20 23:24 40 24 45 07/17/20 23:00 45 24 96/56 (69) 93 07/17/20 22:00 48 28 93/46 (62) 97 07/17/20 21:00 52 26 93/53 (66) 94 07/17/20 20:00 97.8 52 23 87/48 (61) 96 07/17/20 20:00 52 07/17/20 20:00 45 07/17/20 20:00 Mechanical Ventilator Mechanical Ventilator Mechanical Ventilator 07/17/20 19:20 52 24 45 07/17/20 19:00 50 23 96/51 (66) 96 07/17/20 18:00 48 24 93/49 (64) 95 07/17/20 17:00 54 27 95/69 (78) 95 Height (Feet): 5 Height (Inches): 3.00 Weight (Pounds): 173 HEENT: . ETT in place CHEST: Coarse breathing sounds. HEART: S1 and S2. ABDOMEN: Soft. PEG tube in place. SKIN: no rash Laboratory Tests Test 07/18/20 00:09 07/18/20 06:02 07/18/20 09:28 POC Whole Blood Glucose 146 MG/DL (74-106) H Pending 99 MG/DL (74-106) Current Medications Medications (Trade) Dose Ordered Sig/Katy Route PRN Reason Start Time Stop Time Status Last Admin Dose Admin Acetaminophen (Tylenol) 650 mg Q4H PRN GT For Pain 07/01/20 17:15 07/31/20 17:14 07/10/20 17:46 Chlorhexidine Gluconate (Alla-Hex 2%) 1 applic DAILY@1999 TOPIC 06/08/20 20:00 09/06/20 19:59 07/17/20 20:41 Clotrimazole (Lotrimin) 1 applic Q12HR TOPIC 06/07/20 13:00 09/05/20 12:59 07/18/20 10:13 Dextrose (Dextrose 50%) 25 ml Q30M PRN IV Hypoglycemia 06/03/20 11:30 08/28/20 11:29 Dextrose (Dextrose 50%) 50 ml Q30M PRN IV Hypoglycemia 06/03/20 11:30 08/28/20 11:29 Hydrocortisone (Solu-CORTEF) 25 mg Q12H IV 07/17/20 22:00 10/15/20 21:59 07/18/20 10:25 Insulin Aspart (NovoLOG) Q6HR SUBQ 06/26/20 12:00 09/24/20 11:59 07/18/20 06:05 Insulin Detemir (Levemir) 10 units Q12HR SUBQ 06/26/20 10:00 09/24/20 09:59 07/18/20 09:29 Levothyroxine Sodium (Synthroid) 75 mcg DAILY@0630 GT 07/08/20 06:30 08/07/20 06:29 07/18/20 06:29 Loperamide HCl (Imodium) 2 mg Q6H PRN NG Diarrhea 06/24/20 10:30 07/24/20 10:29 07/01/20 11:41 Lorazepam (Ativan 2mg/ml 1ml) 2 mg Q4H PRN IV For Anxiety 07/13/20 00:45 07/20/20 00:44 07/13/20 03:06 Pantoprazole (Protonix) 40 mg EVERY 12 HOURS IVP 07/06/20 21:00 08/05/20 20:59 07/18/20 09:13 Potassium Chloride (K-Dur) 40 meq EVERY 12 HOURS GT 07/04/20 21:00 09/26/20 12:14 07/18/20 09:13 Sodium Chloride 1,000 ml @ 50 mls/hr Q20H IV 07/12/20 11:00 08/11/20 10:59 07/18/20 06:56 Suki Camejo M.D. Jul 18, 2020 16:35
--- NOTE | 2020-07-18 16:38 | Cardiology Progress Note ---
Assessment/Plan Problem List: (1) Diarrhea (2) Anemia (3) Hypernatremia (4) Hypokalemia (5) Down's syndrome (6) Acute respiratory failure (7) Pneumonia (8) Respiratory failure requiring intubation Status: stable, progressing Status Narrative Pt w/ Down's syndrome, admitted w/ pneumonia, respiratory failure. previous s epi bacteremia. Covid negative She has sinus bradycardia, persistent, but without symptoms or hemodynamic compromise. Nl LV function by ECHO Now s/p L CT for Ptx and s/p trach Completed iv abx course for pneumonia and uti Assessment/Plan Continue supportive care. Wean from vent as tolerated Avoid negative chronotropic/ dromotropic agents, as pt w/ baseline sinus bradycardia, intrinsic SN disease. Subjective ROS Limited/Unobtainable: Yes Subjective Cardiology for Dr. Pantoja Pt transferred out of ICU. She is intubated/ awake. Opens eyes to voice. Objective Last 24 Hour Vital Signs Date Time Temp Pulse Resp B/P (MAP) Pulse Ox O2 Delivery O2 Flow Rate FiO2 07/18/20 16:00 Mechanical Ventilator Mechanical Ventilator Mechanical Ventilator 07/18/20 16:00 45 07/18/20 15:06 52 22 45 07/18/20 12:00 45 07/18/20 12:00 Mechanical Ventilator Mechanical Ventilator Mechanical Ventilator 07/18/20 12:00 98.8 57 24 100/64 (76) 97 07/18/20 11:48 53 07/18/20 11:03 54 24 45 07/18/20 08:00 Mechanical Ventilator Mechanical Ventilator Mechanical Ventilator 07/18/20 08:00 48 07/18/20 08:00 45 07/18/20 08:00 97.7 57 24 106/58 (74) 96 07/18/20 07:05 57 24 45 07/18/20 04:00 61 07/18/20 04:00 Mechanical Ventilator Mechanical Ventilator Mechanical Ventilator 07/18/20 04:00 97.7 60 24 113/55 (74) 96 07/18/20 04:00 45 07/18/20 02:59 50 24 45 07/18/20 00:00 97.9 52 24 104/63 (77) 93 07/18/20 00:00 Mechanical Ventilator Mechanical Ventilator Mechanical Ventilator 07/17/20 23:24 40 24 45 07/17/20 23:00 45 24 96/56 (69) 93 07/17/20 22:00 48 28 93/46 (62) 97 07/17/20 21:00 52 26 93/53 (66) 94 07/17/20 20:00 97.8 52 23 87/48 (61) 96 07/17/20 20:00 52 07/17/20 20:00 45 07/17/20 20:00 Mechanical Ventilator Mechanical Ventilator Mechanical Ventilator 07/17/20 19:20 52 24 45 07/17/20 19:00 50 23 96/51 (66) 96 07/17/20 18:00 48 24 93/49 (64) 95 07/17/20 17:00 54 27 95/69 (78) 95 General Appearance: alert, on vent, patient on isolation EENT: PERRL/EOMI, other - Neck: non-tender, supple, other - s/p trach Rhythm: SB Cardiovascular: no gallop/murmur, bradycardia Respiratory/Chest: no respiratory distress, other - L chest tube. Bilat scattered rhonchi Abdomen: non tender, soft, other - + g tube Intake and Output 07/17/20 07/18/20 19:00 07:00 Intake Total 1130 ml 860 ml Output Total 1080 ml 650 ml Balance 50 ml 210 ml Free Water 60 ml 60 ml IV Total 550 ml 200 ml Tube Feeding 520 ml 600 ml Output Urine Total 1065 ml 650 ml Chest Tube Drainage Total 15 ml # Bowel Movements 1 1 Laboratory Tests Test 07/18/20 00:09 07/18/20 06:02 07/18/20 09:28 POC Whole Blood Glucose 146 MG/DL (74-106) H Pending 99 MG/DL (74-106) Brooke Isaacs MD Jul 18, 2020 16:38
--- NOTE | 2020-07-18 17:50 | Internal Med Progress Note ---
Subjective Date of Service: Jul 18, 2020 Physician Name Joni Copeland Attending Physician Elayne Allred MD Current Medications Medications (Trade) Dose Ordered Sig/Katy Route PRN Reason Start Time Stop Time Status Last Admin Dose Admin Acetaminophen (Tylenol) 650 mg Q4H PRN GT For Pain 07/01/20 17:15 07/31/20 17:14 07/10/20 17:46 Chlorhexidine Gluconate (Alla-Hex 2%) 1 applic DAILY@2000 TOPIC 06/08/20 20:00 09/06/20 19:59 07/17/20 20:41 Clotrimazole (Lotrimin) 1 applic Q12HR TOPIC 06/07/20 13:00 09/05/20 12:59 07/18/20 10:13 Dextrose (Dextrose 50%) 25 ml Q30M PRN IV Hypoglycemia 06/03/20 11:30 08/28/20 11:29 Dextrose (Dextrose 50%) 50 ml Q30M PRN IV Hypoglycemia 06/03/20 11:30 08/28/20 11:29 Hydrocortisone (Solu-CORTEF) 25 mg Q12H IV 07/17/20 22:00 10/15/20 21:59 07/18/20 10:25 Insulin Aspart (NovoLOG) Q6HR SUBQ 06/26/20 12:00 09/24/20 11:59 07/18/20 06:05 Insulin Detemir (Levemir) 10 units Q12HR SUBQ 06/26/20 10:00 09/24/20 09:59 07/18/20 09:29 Levothyroxine Sodium (Synthroid) 75 mcg DAILY@0630 GT 07/08/20 06:30 08/07/20 06:29 07/18/20 06:29 Loperamide HCl (Imodium) 2 mg Q6H PRN NG Diarrhea 06/24/20 10:30 07/24/20 10:29 07/01/20 11:41 Lorazepam (Ativan 2mg/ml 1ml) 2 mg Q4H PRN IV For Anxiety 07/13/20 00:45 07/20/20 00:44 07/13/20 03:06 Pantoprazole (Protonix) 40 mg EVERY 12 HOURS IVP 07/06/20 21:00 08/05/20 20:59 07/18/20 09:13 Potassium Chloride (K-Dur) 40 meq EVERY 12 HOURS GT 07/04/20 21:00 09/26/20 12:14 07/18/20 09:13 Sodium Chloride 1,000 ml @ 50 mls/hr Q20H IV 07/12/20 11:00 08/11/20 10:59 07/18/20 06:56 Allergies: Coded Allergies: No Known Allergies (Unverified , 10/16/18) ROS Limited/Unobtainable: Yes Subjective 59 YO F with Down's syndrome admitted with hypoxia. Now sepsis and pneumonia. Cover for Int Med-DR Hawk. Step Down Unit Objective Last Vital Signs Date Time Temp Pulse Resp B/P (MAP) Pulse Ox O2 Delivery O2 Flow Rate FiO2 07/18/20 16:00 97.7 51 24 101/49 (66) 97 07/18/20 16:00 Mechanical Ventilator Mechanical Ventilator Mechanical Ventilator 07/18/20 16:00 45 Laboratory Tests Test 07/18/20 00:09 07/18/20 06:02 07/18/20 09:28 POC Whole Blood Glucose 146 MG/DL (74-106) H Pending 99 MG/DL (74-106) Intake and Output 07/17/20 07/18/20 19:00 07:00 Intake Total 1130 ml 860 ml Output Total 1080 ml 650 ml Balance 50 ml 210 ml Free Water 60 ml 60 ml IV Total 550 ml 200 ml Tube Feeding 520 ml 600 ml Output Urine Total 1065 ml 650 ml Chest Tube Drainage Total 15 ml # Bowel Movements 1 1 Objective General Appearance: WD/WN, no apparent distress, alert EENT: PERRL/EOMI, normal ENT inspection Neck: non-tender, normal alignment, supple, normal inspection Cardiovascular: normal peripheral pulses, normal rate, regular rhythm, no ga llop/murmur, no JVD Respiratory/Chest: Mech vent; decreased breath sounds, crackles/rales, rhonchi - bilaterally, expiratory wheezing Abdomen: normal bowel sounds, non tender, soft, no organomegaly, no mass Extremities: normal range of motion Neurologic: operating cost clerk II-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 S/P amikacin per ID=Dr Camejo. Pulmonary/Critical care=DR Allred. COVID NEG (2) Sepsis Assessment & Plan: Staph haemolyticus. S/P amikacin per ID=Dr Camejo (3) Down's syndrome (4) Dysphagia Assessment & Plan: S/P PEG (5) Seizure disorder Assessment & Plan: Continue keppra and depakote (6) Hypothyroidism Assessment & Plan: Continue synthroid (7) Acute respiratory failure Assessment & Plan: Pulmonary = Dr Allred; mech vent (8) Pneumothorax, right Assessment & Plan: Continue chest tube per pulmonary (9) Cardiac arrest Assessment & Plan: 06/03/20-see cardiology note=Joni Lord MD Jul 18, 2020 17:50
--- NOTE | 2020-07-18 19:17 | NUR ---
NURSE HAND-OFF REPORT: Important Events on Shift:Always Blair. Next Shift is aware Patient Status: Stable Diet: Vital Af 1.2 @50cc/hr Pending Orders: Pending Results/Labs: Pending MD notification: Latest Vital Signs: Temperature 97.7 , Pulse 45 , B/P 101 /49 , Respiratory Rate 23 , O2 SAT 97 , Mechanical Ventilator, O2 Flow Rate 15.0 . Vital Sign Comment: Stable EKG Rhythm: Sinus Bradycardia Rhythm change?: N MD Notified?: Y -Dr Arlin PRAKASH Response: No New Orders Received Latest Osorio Fall Score: 70 Fall Risk: High Risk Safety Measures: Call light Within Reach, Bed Alarm Zone 1, Side Rails Side Rails x3, Bed position Low and Locked. Fall Precautions: Yellow Socks Report given to .
[2020-07-18] MEDS: Dyna-Hex 2% Top Sol 2oz TOPIC SCH (20:32)
--- NOTE | 2020-07-18 23:11 | NUR ---
NURSE NOTES: received pt from Rose Marie LUJAN., pt is awake and AOX 1-2 at this time, opens eyes. pt is in SB 50 at this time. Gtube site intact, clean, and patent. Gtube site intact, clean, and patent. trach in place, no SOB noted O2sat is at 100%. pt is resting on the bed comfortably. left upper arm PICC line intact, clean, and patent. chest tube noted with water sealed without suction. chest tube site intact, dry, and patent. call light within reach. will continue to monitor pt with plan of care. bed at the lowest positioned, alarmed, and locked.
[2020-07-19 04:00] VITALS: BP 105/63
[2020-07-19 05:13] LABS: HEMATOCRIT 23.7 % (37.0-47.0); HEMOGLOBIN 7.8 G/DL (12.0-16.0); MEAN CORPUSCULAR VOLUME 95 FL (80-99); PLATELET COUNT 81 K/UL (150-450); RED BLOOD COUNT 2.49 M/UL (4.20-5.40); RED CELL DISTRIBUTION WIDTH 17.9 % (11.6-14.8); WHITE BLOOD COUNT 6.9 K/UL (4.8-10.8)
[2020-07-19 05:42] LABS: ALANINE AMINOTRANSFERASE 35 U/L (12-78); ALBUMIN 1.3 G/DL (3.4-5.0); ALBUMIN/GLOBULIN RATIO 0.4 (1.0-2.7); ALKALINE PHOSPHATASE 81 U/L (46-116); ANION GAP 6 mmol/L (5-15); ASPARTATE AMINO TRANSFERASE 22 U/L (15-37); BILIRUBIN,TOTAL 0.7 MG/DL (0.2-1.0); BLOOD UREA NITROGEN 14 mg/dL (7-18); CALCIUM 7.3 MG/DL (8.5-10.1); CARBON DIOXIDE 24 MMOL/L (21-32); CHLORIDE 112 MMOL/L (98-107); CREATININE 0.5 MG/DL (0.55-1.30); PHOSPHORUS 2.8 MG/DL (2.5-4.9); POTASSIUM 3.8 MMOL/L (3.5-5.1); SODIUM 142 MMOL/L (136-145)
[2020-07-19] MEDS: NovoLOG Insulin Flexpen SUBQ SCH ×3 (05:43→17:51)
--- NOTE | 2020-07-19 07:21 | NUR ---
NURSE HAND-OFF REPORT: Important Events on Shift: hbg 7.8 Patient Status: stable Diet: Vital 1.2 @50ml/hr Pending Orders: none Pending Results/Labs:n/a Pending notification:n/a Latest Vital Signs: Temperature 98.3 , Pulse 45 , B/P 105 /63 , Respiratory Rate 20 , O2 SAT 100 , Mechanical Ventilator, O2 Flow Rate 15.0 . Vital Sign Comment: stable EKG Rhythm: Sinus Bradycardia Rhythm change?: N MD Notified?: Y Chaparro Oliveros MD Response: No New Orders Received Latest Osorio Fall Score: 70 Fall Risk: High Risk Safety Measures: Call light Within Reach, Bed Alarm Zone 1, Side Rails Side Rails x3, Bed position Low and Locked. Fall Precautions: Yellow Socks Report given to Rose Marie LUJAN
--- NOTE | 2020-07-19 07:22 | NUR ---
NURSE NOTES: Received report from TAI MOLINA, patient in bed, sleeping . Noted with trach size shiley 8 with settings of AC-22 TV-500 FiO2-70% tolerated well. In no apparent distress noted. On GT feeding Vital AF at 50cc on hold per TAI Molina. Synthroid was given, will resume later. Gtube is intact patent and flushed well. No residual noted. Patient has thoravent on L chest attached to waterseal. Patient has bilateral soft wrist restraints . Picc line on L upper Arm running 1/2 NS @ 50 ml/hr, intact with remaining 700ml on the bag, line is patent, intact and flushed well. No infiltration noted. With sarah catheter, draining color yellowish urine with 50ml on the bag. Safety measures in place. Will continue to monitor.
[2020-07-19 08:00] VITALS: BP 121/85
[2020-07-19] MEDS: Pantoprazole Inj IVP SCH ×2 (08:10→20:57)
[2020-07-19] MEDS: Levemir Flexpen SUBQ SCH ×2 (08:12→21:03)
[2020-07-19] MEDS ORDERED: 1/2 NS 1000ml IV ONE (08:52)
[2020-07-19] MEDS ORDERED: NS 275ml ONE (08:52)
[2020-07-19] MEDS: Hydrocortisone 100mg Inj IV SCH ×2 (10:06→21:07)
--- NOTE | 2020-07-19 11:07 | Pulmonology Progress Note ---
Subjective ROS Limited/Unobtainable: Yes Allergies: Coded Allergies: No Known Allergies (Unverified , 10/16/18) Subjective CT placed to water seal 07/18 CXR this am 07/19 -> Diffuse airspace opacities. ABG noted on AC 22 no fevers, no leukocytosis no resp distress Objective Last 24 Hour Vital Signs Date Time Temp Pulse Resp B/P (MAP) Pulse Ox O2 Delivery O2 Flow Rate FiO2 07/19/20 08:00 97.9 54 24 121/85 (97) 98 07/19/20 08:00 Mechanical Ventilator Mechanical Ventilator Mechanical Ventilator 07/19/20 08:00 70 07/19/20 07:44 42 07/19/20 07:10 49 22 45 07/19/20 04:00 70 07/19/20 04:00 Mechanical Ventilator Mechanical Ventilator Mechanical Ventilator 07/19/20 04:00 98.3 45 20 105/63 (77) 100 07/19/20 03:48 43 07/19/20 02:35 50 22 45 07/19/20 00:00 Mechanical Ventilator Mechanical Ventilator Mechanical Ventilator 07/18/20 23:56 97.9 40 20 115/65 (82) 100 07/18/20 23:49 39 07/18/20 22:53 51 22 45 07/18/20 20:39 97.7 51 20 107/66 (80) 97 07/18/20 20:00 Mechanical Ventilator Mechanical Ventilator Mechanical Ventilator 07/18/20 20:00 70 07/18/20 19:28 51 07/18/20 18:49 45 23 45 07/18/20 16:00 97.7 51 24 101/49 (66) 97 07/18/20 16:00 Mechanical Ventilator Mechanical Ventilator Mechanical Ventilator 07/18/20 16:00 70 07/18/20 15:24 47 07/18/20 15:06 52 22 45 07/18/20 12:00 45 07/18/20 12:00 Mechanical Ventilator Mechanical Ventilator Mechanical Ventilator 07/18/20 12:00 98.8 57 24 100/64 (76) 97 07/18/20 11:48 53 07/18/20 11:03 54 24 45 Intake and Output 07/18/20 07/19/20 19:00 07:00 Intake Total 770 ml 1145 ml Output Total 1130 ml 1200 ml Balance -360 ml -55 ml Free Water 120 ml 80 ml IV Total 50 ml 515 ml Tube Feeding 600 ml 550 ml Output Urine Total 950 ml 1200 ml Chest Tube Drainage Total 180 ml # Bowel Movements 1 2 Objective Status: on Vent AC 500-22- 45% no PEEP Condition: critical HEENT: atraumatic, normocephalic, face with Down features, Neck: trach Shiley #8, in place, intact' secretions small amount, thin consistency, clear Lungs: R sided CT with serosanguineous drainage , few scattered rhonchi Heart: SR with BB, + 1 edema BLE Abdomen: soft, non-tender, G tube Decubiti: +1 edema BLE Lines: LUE PICC intact Laboratory Tests 07/18/20 17:50: POC Whole Blood Glucose 105 07/18/20 20:34: POC Whole Blood Glucose [Pending] 07/18/20 23:54: POC Whole Blood Glucose 93 07/19/20 03:00: White Blood Count 6.9, Red Blood Count 2.49L, Hemoglobin 7.8L, Hematocrit 23.7L, Mean Corpuscular Volume 95, Mean Corpuscular Hemoglobin 31.5H, Mean Corpuscular Hemoglobin Concent 33.1, Red Cell Distribution Width 17.9H, Platelet Count 81L, Mean Platelet Volume 9.4, Neutrophils (%) (Auto) , Lymphocytes (%) (Auto) , Monocytes (%) (Auto) , Eosinophils (%) (Auto) , Basophils (%) (Auto) , Di fferential Total Cells Counted 100, Neutrophils % (Manual) 61, Lymphocytes % (Manual) 33, Monocytes % (Manual) 4, Eosinophils % (Manual) 2, Basophils % (Manual) 0, Band Neutrophils 0, Platelet Estimate DecreasedL, Platelet Morphology Normal, Hypochromasia 1+, Anisocytosis 1+, Sodium Level 142, Potassium Level 3.8, Chloride Level 112H, Carbon Dioxide Level 24, Anion Gap 6, Blood Urea Nitrogen 14, Creatinine 0.5L, Estimat Glomerular Filtration Rate > 60, Glucose Level 114H, Uric Acid 3.1, Calcium Level 7.3L, Phosphorus Level 2.8, Magnesium Level 1.8, Total Bilirubin 0.7, Aspartate Amino Transf (AST/SGOT) 22, Alanine Aminotransferase (ALT/SGPT) 35, Alkaline Phosphatase 81, Total Protein 4.6L, Albumin 1.3L, Globulin 3.3, Albumin/Globulin Ratio 0.4L 07/19/20 05:06: POC Whole Blood Glucose 123H 07/19/20 07:56: Arterial Blood pH 7.503H, Arterial Blood Partial Pressure CO2 28.5L, Arterial Blood Partial Pressure O2 92.9, Arterial Blood HCO3 21.9L, Arterial Blood Oxygen Saturation 97.0, Arterial Blood Base Excess -0.8, Jonathan Test Positive 07/19/20 08:08: POC Whole Blood Glucose 88 Current Medications Medications (Trade) Dose Ordered Sig/Katy Route PRN Reason Start Time Stop Time Status Last Admin Dose Admin Acetaminophen (Tylenol) 650 mg Q4H PRN GT For Pain 07/01/20 17:15 07/31/20 17:14 07/10/20 17:46 Chlorhexidine Gluconate (Alla-Hex 2%) 1 applic DAILY@1999 TOPIC 06/08/20 20:00 09/06/20 19:59 07/18/20 20:32 Clotrimazole (Lotrimin) 1 applic Q12HR TOPIC 06/07/20 13:00 09/05/20 12:59 07/19/20 08:13 Dextrose (Dextrose 50%) 25 ml Q30M PRN IV Hypoglycemia 06/03/20 11:30 08/28/20 11:29 Dextrose (Dextrose 50%) 50 ml Q30M PRN IV Hypoglycemia 06/03/20 11:30 08/28/20 11:29 Hydrocortisone (Solu-CORTEF) 25 mg Q12H IV 07/17/20 22:00 10/15/20 21:59 07/19/20 10:06 Insulin Aspart (NovoLOG) Q6HR SUBQ 06/26/20 12:00 09/24/20 11:59 07/18/20 06:05 Insulin Detemir (Levemir) 10 units Q12HR SUBQ 06/26/20 10:00 09/24/20 09:59 07/19/20 08:12 Levothyroxine Sodium (Synthroid) 75 mcg DAILY@629 GT 07/08/20 06:30 08/07/20 06:29 07/19/20 05:59 Loperamide HCl (Imodium) 2 mg Q6H PRN NG Diarrhea 06/24/20 10:30 07/24/20 10:29 07/01/20 11:41 Lorazepam (Ativan 2mg/ml 1ml) 2 mg Q4H PRN IV For Anxiety 07/13/20 00:45 07/20/20 00:44 07/13/20 03:06 Pantoprazole (Protonix) 40 mg EVERY 12 HOURS IVP 07/06/20 21:00 08/05/20 20:59 07/19/20 08:10 Potassium Chloride (K-Dur) 40 meq EVERY 12 HOURS GT 07/04/20 21:00 09/26/20 12:14 07/19/20 08:10 Sodium Chloride 1,000 ml @ 50 mls/hr Q20H IV 07/12/20 11:00 08/11/20 10:59 07/19/20 02:42 Assessment/Plan Assessment/Plan ASSESSMENT s/p cardiopulmonary arrest Acute hypoxemic respiratory failure requiring intubation Failure to wean s/p trach 07/16 Sepsis with shock Persistent CONS bacteremia Pneumonia ANIRUDH Pulm edema/ ARDS R PTX, s/p CT placement 06/29 and subsequent removal L PTX s/p CT placement 07/10 LEANN due to ATN 2 to hypotension Down syndrome Hypothyroidism Seizure disorder Anemia, requiring blood transfusion DM PLAN OF CARE GENARO vent support, pulmonary toilet trach care CXR 07/17 - Diffuse airspace opacities. Venous duplex BLE L CT to water seal since 07/18 , CXR 07/19 - Diffuse airspace opacities. PTX long resolved ABG noted : decrease AC to 20 and repeat ABG in am on steroids-Hydrocortisone, decreased frequency off pressors; off midodrine now as well Echo with pEF 65% s/p abx COVID-19 x3 NGT prior persistent CONS bacteremia Echo no evidence of vegetation however BCX 06/06, 06/14, 06/16, 06/27 NGT per ID recs keep off abx unless febrile or evidence of infection 07/13 UCX +PSA colonizer as per ID Legionella Ag urine, blasto Ab, Histo Ab, HIV ab screen, FRANCIS, ANCA neg now SCX 07/13 + Proteus, awaiting ID recs, colonizer stool OB + x1 and - x 2 prior off Heparin given on SCD s/p 3 u PRBC GI procedures on hold given current condition HH stabilized GI prophylaxis creat prior worsened due to Vanco , now resolved gentle IVF avoid nephrotoxic correct electrolytes as needed fup with further nephro recs continue levothyroxine , TSH within normal limits BS management with LA Levemir and SSI as needed seizure precautions, supportive care case discussed and evaluated by supervising physician Carla Jj NP Jul 19, 2020 11:07
[2020-07-19 12:00] VITALS: BP 117/71
--- NOTE | 2020-07-19 13:50 | Nephrology Progress Note ---
Assessment/Plan Problem List: (1) LEANN (acute kidney injury) (2) Respiratory failure requiring intubation (3) Down's syndrome (4) Seizure disorder (5) Hypothyroidism Assessment Acute renal failure, likely due to hypotension Acute respiratory distress, hypoxia Seizure disorder Hypothyroidism Down syndrome Full code Fluid challenge with IV fluids and albumin Midodrine for BP above 100 systolic Check TSH level Check Correct level Monitor renal parameters Urine studies Per orders Plan July 19: Trach to vent. Left chest tube to drain. Full code. Labs r eviewed. Renal parameters stable. July 18: Trached and vent. Still has left chest tube to drain. No chemistry panel today. Continue per consultants. Patient full code. July 17: Patient now has trach connected to vent. Left chest tube remains in place. Patient full code. Continue per consultants. Labs reviewed. July 16: Discussed with RN. Remains on ventilator. Labs reviewed. Stable from renal standpoint of view. Patient due for tracheostomy when clinically stable. July 15: On ventilator. Left chest tube remains. Full code. Labs reviewed. Electrolyte abnormalities addressed. Continue per consultants. July 14: On ventilator. Tracheostomy postponed because patient is clinically unstable. Still have left chest tube draining. Labs reviewed. Electrolyte abnormalities addressed. Continue per consultants. July 13: Remains intubated on ventilator. Discussed with RN. Unclear if the patient is due for tracheostomy today or not. Apparently the patient was reintubated again yesterday. Patient has left chest tube. Electrolyte abnormalities addressed. July 12: Remains intubated on ventilator. Due for tracheostomy tomorrow. Left chest tube present. Patient is full code. Labs reviewed. Continue as is. July 11: Remains intubated on ventilator. Due for tracheostomy July 13. Has left-sided chest tube. Stable from renal standpoint to view. Continue per consultants. July 10: Remains intubated on ventilator. Electrolyte abnormalities addressed. Supplements ordered. July 09: Intubated on ventilator. Labs reviewed. Potassium supplement given. Remains bradycardic. Continue per consultants. July 08: Labs reviewed. Electrolyte abnormalities addressed. Heart rate remains bradycardic. Continue per cardiology. Continue to monitor renal parameters and electrolytes. July 07: Labs reviewed. Electrolyte abnormalities addressed and replaced. Medication list reviewed. Heart rate remains mid 50s. Continue as is. July 06: On ventilator. Full code. Heart rate low. Will discontinue Midodrin. Continue to rest. Electrolytes within normal limit. Discussed with RN. July 05: Remains intubated. Full code. No plan for tracheostomy yet. Labs reviewed. All acceptable. Continue same management July 04: Labs reviewed. Discussed with RN. Potassium and phosphorus and magnesium replacement ordered. Hemoglobin 9.5. Patient remains full code. Continue per consultants. July 03: Lab reviewed. Renal parameters stable. Full code. Intubated. Electrolyte abnormalities addressed and replacement done. July 02: Lab reviewed. Renal parameters stable. Full code. Intubated. Has right side chest tube. Continue per consultants. July 01: Lab reviewed. Renal parameters stable. Full code. Has right chest tube. Planning process for tracheostomy. Defer to chest and general surgeon. June 30: Labs reviewed. Renal parameters stable. Remains full code. Remains on ventilator. Due for tracheostomy tomorrow. Continue per consultants. Patient has a right chest tube in place at this time. June 29: Labs reviewed. Electrolyte imbalances addressed and supplemented. Remains full code and on ventilator. Continue to monitor renal parameters. Continue per consultants. June 28: Labs reviewed. Serum potassium again low today. Potassium supplement IV and through GT given. Patient remains full code and is on ventilator. Continue per consultants. Continue to monitor electrolytes and renal parameters. June 27: Labs reviewed. Abnormal electrolyte addressed. Remains full code. Remains vented. June 26: Day 27 of hospitalization. Full code. Labs reviewed. Hemoglobin down to 7.5. Electrolyte abnormalities addressed and corrections ordered. Continue to monitor renal parameters. Continue per consultants. Start on Levemir for blood sugar management. Questioning continuation of hydrocortisone? June 25: Labs reviewed. Potassium, phosphorus, hemoglobin, are all low. Potassium and phosphorus IV replacement given. Continue to monitor electrolytes and CBC. Patient remains full code. June 24: Lab reviewed. Low phosphorus low magnesium and low potassium was addressed. Hemoglobin drifting lower. Continue per consultants. Patient remains full code. June 23: Labs reviewed. Patient continues to be on ventilator. D5W for high sodium and also potassium chloride intravenously as supplement given. He moglobin 8.4. Continue to monitor electrolytes and renal parameters. June 22: Labs reviewed. Low potassium and high sodium noted. Hemoglobin 8.1 stable. Aim to correct abnormal electrolyte. Continue rest. Will give 2 boluses of D5W 500 cc. June 21: Lab reviewed. Abnormal electrolytes noted and addressed. June 20: Labs reviewed. Potassium supplement given. Patient remains full code. Continue per consultants. June 19: Lab reviewed. Electrolyte abnormalities addressed. Continue per pulmonary and ID. June 18: Lab reviewed. Status unchanged. Serum sodium 151 unchanged. Stable from renal standpoint of view. June 17: Labs reviewed. Status quo. D5W 500 cc IV ordered. Continue to monitor renal parameters. June 16: Status quo. Labs reviewed. Overall condition unchanged. Patient was transfused and hemoglobin higher. Continue current management. Patient remains full code. June 15: Status quo. Overall condition poor. Very low albumin. Edematous. Hypotensive. Hemoglobin lower. Anemia work-up ordered. I favor transfusion 2 units of packed RBCs. Patient remains full code. I favor supportive care only. Will discuss. June 14: Electrolyte abnormalities addressed. Serum creatinine lower. Continue per current management. June 13: Status unchanged. Lab reviewed. Serum potassium 2.7. IV potassium chloride ordered. Serum creatinine low at 1.6 stable. Blood pressure 90s systolic June 12: Status quo. Labs reviewed. Renal parameters stable. Serum creatinine down to 1.6. Medication list reviewed. Continues to be on midodrine. Continue per consultants. June 11: Status quo. Labs reviewed. Electrolytes adjusted. Serum creatinine down to 1.8. Continue per consultants. June 10: Status quo. Labs reviewed. Phosphorus supplement IV given. Serum creatinine 2. Continue per consultants. June 09: Requires less pressors. Albumin bolus given. 1 dose of Lasix IV ordered as the patient severely edematous. Patient serum albumin is very low. Continue per consultants. June 08: Continues to be intubated. Labs reviewed. Serum creatinine 1.9 unchanged. Blood pressure more stable. Off 1 of the pressors. Continue to monitor renal parameters. Continue per consultants. Patient now on hydroco rtisone 100 mg every 8 hours. Will decrease IV fluid. Normal saline down to 50 cc an hour. June 07: Intubated. Labs reviewed. Creatinine 1.9 unchanged. Continue same treatment plan. Per consultants. Overall poor prognosis since the patient remains on pressors and her pulmonary status is worsening. June 06: Remains intubated. Labs reviewed. Creatinine 1.9. Blood pressure systolic 90s. Continue per consultants. June 05: Remains intubated. Labs reviewed. Serum creatinine lower to 2. Vancomycin level lower. Remains hypotensive on pressors. Will increase midodrine to 10 mg every 8 hours. Continue per consultants. Continue to monitor renal parameters. June 04: Patient now in ICU. Intubated. On pressors. Labs reviewed. Will increase midodrine. Aim to keep blood pressure over 100 systolic. Will give albumin bolus. Will check vancomycin level which was elevated when checked previously on June 01. Will monitor renal parameters. Continue per consultants. Subjective ROS Limited/Unobtainable: Yes Objective Objective Last 24 Hour Vital Signs Date Time Temp Pulse Resp B/P (MAP) Pulse Ox O2 Delivery O2 Flow Rate FiO2 07/19/20 12:00 98.2 57 20 117/71 (86) 97 07/19/20 12:00 70 07/19/20 12:00 Mechanical Ventilator Mechanical Ventilator Mechanical Ventilator 07/19/20 11:40 48 07/19/20 08:00 97.9 54 24 121/85 (97) 98 07/19/20 08:00 Mechanical Ventilator Mechanical Ventilator Mechanical Ventilator 07/19/20 08:00 70 07/19/20 07:44 42 07/19/20 07:10 49 22 45 07/19/20 04:00 70 07/19/20 04:00 Mechanical Ventilator Mechanical Ventilator Mechanical Ventilator 07/19/20 04:00 98.3 45 20 105/63 (77) 100 07/19/20 03:48 43 07/19/20 02:35 50 22 45 07/19/20 00:00 Mechanical Ventilator Mechanical Ventilator Mechanical Ventilator 07/18/20 23:56 97.9 40 20 115/65 (82) 100 07/18/20 23:49 39 07/18/20 22:53 51 22 45 07/18/20 20:39 97.7 51 20 107/66 (80) 97 07/18/20 20:00 Mechanical Ventilator Mechanical Ventilator Mechanical Ventilator 07/18/20 20:00 70 07/18/20 19:28 51 07/18/20 18:49 45 23 45 07/18/20 16:00 97.7 51 24 101/49 (66) 97 07/18/20 16:00 Mechanical Ventilator Mechanical Ventilator Mechanical Ventilator 07/18/20 16:00 70 07/18/20 15:24 47 07/18/20 15:06 52 22 45 Intake and Output 07/18/20 07/19/20 19:00 07:00 Intake Total 770 ml 1145 ml Output Total 1130 ml 1200 ml Balance -360 ml -55 ml Free Water 120 ml 80 ml IV Total 50 ml 515 ml Tube Feeding 600 ml 550 ml Output Urine Total 950 ml 1200 ml Chest Tube Drainage Total 180 ml # Bowel Movements 1 2 Laboratory Tests 07/18/20 17:50: POC Whole Blood Glucose 105 07/18/20 20:34: POC Whole Blood Glucose [Pending] 07/18/20 23:54: POC Whole Blood Glucose 93 07/19/20 03:00: White Blood Count 6.9, Red Blood Count 2.49L, Hemoglobin 7.8L, Hematocrit 23.7L, Mean Corpuscular Volume 95, Mean Corpuscular Hemoglobin 31.5H, Mean Corpuscular Hemoglobin Concent 33.1, Red Cell Distribution Width 17.9H, Platelet Count 81L, Mean Platelet Volume 9.4, Neutrophils (%) (Auto) , Lymphocytes (%) (Auto) , Monocytes (%) (Auto) , Eosinophils (%) (Auto) , Basophils (%) (Auto) , Differential Total Cells Counted 100, Neutrophils % (Manual) 61, Lymphocytes % (Manual) 33, Monocytes % (Manual) 4, Eosinophils % (Manual) 2, Basophils % (Manual) 0, Band Neutrophils 0, Platelet Estimate DecreasedL, Platelet Morphology Normal, Hypochromasia 1+, Anisocytosis 1+, Sodium Level 142, Potassium Level 3.8, Chloride Level 112H, Carbon Dioxide Level 24, Anion Gap 6, Blood Urea Nitrogen 14, Creatinine 0.5L, Estimat Glomerular Filtration Rate > 60, Glucose Level 114H, Uric Acid 3.1, Calcium Level 7.3L, Phosphorus Level 2.8, Magnesium Level 1.8, Total Bilirubin 0.7, Aspartate Amino Transf (AST/SGOT) 22, Alanine Aminotransferase (ALT/SGPT) 35, Alkaline Phosphatase 81, Total Protein 4.6L, Albumin 1.3L, Globulin 3.3, Albumin/Globulin Ratio 0.4L 07/19/20 05:06: POC Whole Blood Glucose 123H 07/19/20 07:56: Arterial Blood pH 7.503H, Arterial Blood Partial Pressure CO2 28.5L, Arterial Blood Partial Pressure O2 92.9, Arterial Blood HCO3 21.9L, Arterial Blood Oxygen Saturation 97.0, Arterial Blood Base Excess -0.8, Jonathan Test Positive 07/19/20 08:08: POC Whole Blood Glucose 88 07/19/20 11:10: POC Whole Blood Glucose 109H Height (Feet): 5 Height (Inches): 3.00 Weight (Pounds): 173 General Appearance: no apparent distress EENT: other - Trach to vent Cardiovascular: bradycardia Respiratory/Chest: decreased breath sounds Abdomen: soft Keron Pitt MD Jul 19, 2020 13:50
--- NOTE | 2020-07-19 15:11 | Cardiology Progress Note ---
Assessment/Plan Problem List: (1) Anemia (2) Hypernatremia (3) Hypokalemia (4) Down's syndrome (5) Acute respiratory failure (6) Pneumonia (7) Respiratory failure requiring intubation Status: stable, unchanged Status Narrative Pt w/ Down's syndrome, admitted w/ pneumonia, respiratory failure. previous s epi bacteremia. Covid negative She has sinus bradycardia, persistent, but without symptoms or hemodynamic compromise. Nl LV function by ECHO Now s/p L CT for Ptx and s/p trach Completed iv abx course for pneumonia and uti Assessment/Plan Continue supportive care. Wean from vent as tolerated Avoid negative chronotropic/ dromotropic agents, as pt w/ baseline sinus bradycardia, intrinsic SN disease. Will check thyroid function tests - free T4 and TSH. She has hx of hypothyroidism and is on synthroid Subjective ROS Limited/Unobtainable: Yes Subjective Cardiology for Dr. Pantoja Pt transferred out of ICU. She is intubated and sedated. Objective Last 24 Hour Vital Signs Date Time Temp Pulse Resp B/P (MAP) Pulse Ox O2 Delivery O2 Flow Rate FiO2 07/19/20 12:00 98.2 57 20 117/71 (86) 97 07/19/20 12:00 70 07/19/20 12:00 Mechanical Ventilator Mechanical Ventilator Mechanical Ventilator 07/19/20 11:40 48 07/19/20 11:11 51 20 45 07/19/20 08:00 97.9 54 24 121/85 (97) 98 07/19/20 08:00 Mechanical Ventilator Mechanical Ventilator Mechanical Ventilator 07/19/20 08:00 70 07/19/20 07:44 42 07/19/20 07:10 49 22 45 07/19/20 04:00 70 07/19/20 04:00 Mechanical Ventilator Mechanical Ventilator Mechanical Ventilator 07/19/20 04:00 98.3 45 20 105/63 (77) 100 07/19/20 03:48 43 07/19/20 02:35 50 22 45 07/19/20 00:00 Mechanical Ventilator Mechanical Ventilator Mechanical Ventilator 07/18/20 23:56 97.9 40 20 115/65 (82) 100 07/18/20 23:49 39 07/18/20 22:53 51 22 45 07/18/20 20:39 97.7 51 20 107/66 (80) 97 07/18/20 20:00 Mechanical Ventilator Mechanical Ventilator Mechanical Ventilator 07/18/20 20:00 70 07/18/20 19:28 51 07/18/20 18:49 45 23 45 07/18/20 16:00 97.7 51 24 101/49 (66) 97 07/18/20 16:00 Mechanical Ventilator Mechanical Ventilator Mechanical Ventilator 07/18/20 16:00 70 07/18/20 15:24 47 General Appearance: no apparent distress, on vent, other - sedated EENT: PERRL/EOMI Neck: other - trach Rhythm: SB Cardiovascular: no gallop/murmur, bradycardia Respiratory/Chest: other - bilateral rhonchi and transmitted upper airway sounds Abdomen: non tender, soft, other - g tube Extremities: no swelling Intake and Output 07/18/20 07/19/20 19:00 07:00 Intake Total 770 ml 1165 ml Output Total 1130 ml 1200 ml Balance -360 ml -35 ml Free Water 120 ml 80 ml IV Total 50 ml 515 ml Tube Feeding 600 ml 550 ml Blood Product 20 ml Output Urine Total 950 ml 1200 ml Chest Tube Drainage Total 180 ml # Bowel Movements 1 2 Laboratory Tests Test 07/18/20 17:50 07/18/20 20:34 07/18/20 23:54 07/19/20 03:00 POC Whole Blood Glucose 105 MG/DL (74-106) Pending 93 MG/DL (74-106) White Blood Count 6.9 K/UL (4.8-10.8) Red Blood Count 2.49 M/UL (4.20-5.40) L Hemoglobin 7.8 G/DL (12.0-16.0) L Hematocrit 23.7 % (37.0-47.0) L Mean Corpuscular Volume 95 FL (80-99) Mean Corpuscular Hemoglobin 31.5 PG (27.0-31.0) H Mean Corpuscular Hemoglobin Concent 33.1 G/DL (32.0-36.0) Red Cell Distribution Width 17.9 % (11.6-14.8) H Platelet Count 81 K/UL (150-450) L Mean Platelet Volume 9.4 FL (6.5-10.1) Neutrophils (%) (Auto) % (45.0-75.0) Lymphocytes (%) (Auto) % (20.0-45.0) Monocytes (%) (Auto) % (1.0-10.0) Eosinophils (%) (Auto) % (0.0-3.0) Basophils (%) (Auto) % (0.0-2.0) Differential Total Cells Counted 100 Neutrophils % (Manual) 61 % (45-75) Lymphocytes % (Manual) 33 % (20-45) Monocytes % (Manual) 4 % (1-10) Eosinophils % (Manual) 2 % (0-3) Basophils % (Manual) 0 % (0-2) Band Neutrophils 0 % (0-8) Platelet Estimate Decreased L Platelet Morphology Normal Hypochromasia 1+ Anisocytosis 1+ Sodium Level 142 MMOL/L (136-145) Potassium Level 3.8 MMOL/L (3.5-5.1) Chloride Level 112 MMOL/L (98-107) H Carbon Dioxide Level 24 MMOL/L (21-32) Anion Gap 6 mmol/L (5-15) Blood Urea Nitrogen 14 mg/dL (7-18) Creatinine 0.5 MG/DL (0.55-1.30) L Estimat Glomerular Filtration Rate > 60 mL/min (>60) Glucose Level 114 MG/DL (74-106) H Uric Acid 3.1 MG/DL (2.6-7.2) Calcium Level 7.3 MG/DL (8.5-10.1) L Phosphorus Level 2.8 MG/DL (2.5-4.9) Magnesium Level 1.8 MG/DL (1.8-2.4) Total Bilirubin 0.7 MG/DL (0.2-1.0) Aspartate Amino Transf (AST/SGOT) 22 U/L (15-37) Alanine Aminotransferase (ALT/SGPT) 35 U/L (12-78) Alkaline Phosphatase 81 U/L (46-116) Total Protein 4.6 G/DL (6.4-8.2) L Albumin 1.3 G/DL (3.4-5.0) L Globulin 3.3 g/dL Albumin/Globulin Ratio 0.4 (1.0-2.7) L Test 07/19/20 05:06 07/19/20 07:56 07/19/20 08:08 07/19/20 11:10 POC Whole Blood Glucose 123 MG/DL (74-106) H 88 MG/DL (74-106) 109 MG/DL (74-106) H Arterial Blood pH 7.503 (7.350-7.450) Arterial Blood Partial Pressure CO2 28.5 mmHg (35.0-45.0) L Arterial Blood Partial Pressure O2 92.9 mmHg (75.0-100.0) Arterial Blood HCO3 21.9 mmol/L (22.0-26.0) L Arterial Blood Oxygen Saturation 97.0 % (95-100) Arterial Blood Base Excess -0.8 (-2-2) Jonathan Test Positive Brooke Isaacs MD Jul 19, 2020 15:11
[2020-07-19 16:00] VITALS: BP 130/86
--- NOTE | 2020-07-19 17:40 | Surgery Progress Note ---
Surgery Progress Note Subjective Procedure Performed Tracheostomy Additional Comments chest tube to water seal pending cxr plan tube removoal soon Objective Last 24 Hour Vital Signs Date Time Temp Pulse Resp B/P (MAP) Pulse Ox O2 Delivery O2 Flow Rate FiO2 07/19/20 16:00 70 07/19/20 16:00 Mechanical Ventilator Mechanical Ventilator Mechanical Ventilator 07/19/20 16:00 97.7 52 22 130/86 (101) 98 07/19/20 15:05 62 20 45 07/19/20 12:00 98.2 57 20 117/71 (86) 97 07/19/20 12:00 70 07/19/20 12:00 Mechanical Ventilator Mechanical Ventilator Mechanical Ventilator 07/19/20 11:40 48 07/19/20 11:11 51 20 45 07/19/20 08:00 97.9 54 24 121/85 (97) 98 07/19/20 08:00 Mechanical Ventilator Mechanical Ventilator Mechanical Ventilator 07/19/20 08:00 70 07/19/20 07:44 42 07/19/20 07:10 49 22 45 07/19/20 04:00 70 07/19/20 04:00 Mechanical Ventilator Mechanical Ventilator Mechanical Ventilator 07/19/20 04:00 98.3 45 20 105/63 (77) 100 07/19/20 03:48 43 07/19/20 02:35 50 22 45 07/19/20 00:00 Mechanical Ventilator Mechanical Ventilator Mechanical Ventilator 07/18/20 23:56 97.9 40 20 115/65 (82) 100 07/18/20 23:49 39 07/18/20 22:53 51 22 45 07/18/20 20:39 97.7 51 20 107/66 (80) 97 07/18/20 20:00 Mechanical Ventilator Mechanical Ventilator Mechanical Ventilator 07/18/20 20:00 70 07/18/20 19:28 51 07/18/20 18:49 45 23 45 I&O Intake and Output 07/18/20 07/19/20 19:00 07:00 Intake Total 770 ml 1165 ml Output Total 1130 ml 1200 ml Balance -360 ml -35 ml Free Water 120 ml 80 ml IV Total 50 ml 515 ml Tube Feeding 600 ml 550 ml Blood Product 20 ml Output Urine Total 950 ml 1200 ml Chest Tube Drainage Total 180 ml # Bowel Movements 1 2 Cardiovascular: RSR Respiratory: decreased breath sounds Abdomen: soft, non-tender, present bowel sounds Extremities: no edema, no tenderness, no cyanosis Laboratory Tests Test 07/18/20 17:50 07/18/20 20:34 07/18/20 23:54 07/19/20 03:00 POC Whole Blood Glucose 105 MG/DL (74-106) Pending 93 MG/DL (74-106) White Blood Count 6.9 K/UL (4.8-10.8) Red Blood Count 2.49 M/UL (4.20-5.40) L Hemoglobin 7.8 G/DL (12.0-16.0) L Hematocrit 23.7 % (37.0-47.0) L Mean Corpuscular Volume 95 FL (80-99) Mean Corpuscular Hemoglobin 31.5 PG (27.0-31.0) H Mean Corpuscular Hemoglobin Concent 33.1 G/DL (32.0-36.0) Red Cell Distribution Width 17.9 % (11.6-14.8) H Platelet Count 81 K/UL (150-450) L Mean Platelet Volume 9.4 FL (6.5-10.1) Neutrophils (%) (Auto) % (45.0-75.0) Lymphocytes (%) (Auto) % (20.0-45.0) Monocytes (%) (Auto) % (1.0-10.0) Eosinophils (%) (Auto) % (0.0-3.0) Basophils (%) (Auto) % (0.0-2.0) Differential Total Cells Counted 100 Neutrophils % (Manual) 61 % (45-75) Lymphocytes % (Manual) 33 % (20-45) Monocytes % (Manual) 4 % (1-10) Eosinophils % (Manual) 2 % (0-3) Basophils % (Manual) 0 % (0-2) Band Neutrophils 0 % (0-8) Platelet Estimate Decreased L Platelet Morphology Normal Hypochromasia 1+ Anisocytosis 1+ Sodium Level 142 MMOL/L (136-145) Potassium Level 3.8 MMOL/L (3.5-5.1) Chloride Level 112 MMOL/L (98-107) H Carbon Dioxide Level 24 MMOL/L (21-32) Anion Gap 6 mmol/L (5-15) Blood Urea Nitrogen 14 mg/dL (7-18) Creatinine 0.5 MG/DL (0.55-1.30) L Estimat Glomerular Filtration Rate > 60 mL/min (>60) Glucose Level 114 MG/DL (74-106) H Uric Acid 3.1 MG/DL (2.6-7.2) Calcium Level 7.3 MG/DL (8.5-10.1) L Phosphorus Level 2.8 MG/DL (2.5-4.9) Magnesium Level 1.8 MG/DL (1.8-2.4) Total Bilirubin 0.7 MG/DL (0.2-1.0) Aspartate Amino Transf (AST/SGOT) 22 U/L (15-37) Alanine Aminotransferase (ALT/SGPT) 35 U/L (12-78) Alkaline Phosphatase 81 U/L (46-116) Total Protein 4.6 G/DL (6.4-8.2) L Albumin 1.3 G/DL (3.4-5.0) L Globulin 3.3 g/dL Albumin/Globulin Ratio 0.4 (1.0-2.7) L Test 07/19/20 05:06 07/19/20 07:56 07/19/20 08:08 07/19/20 11:10 POC Whole Blood Glucose 123 MG/DL (74-106) H 88 MG/DL (74-106) 109 MG/DL (74-106) H Arterial Blood pH 7.503 (7.350-7.450) Arterial Blood Partial Pressure CO2 28.5 mmHg (35.0-45.0) L Arterial Blood Partial Pressure O2 92.9 mmHg (75.0-100.0) Arterial Blood HCO3 21.9 mmol/L (22.0-26.0) L Arterial Blood Oxygen Saturation 97.0 % (95-100) Arterial Blood Base Excess -0.8 (-2-2) Jonathan Test Positive Plan Problems: (1) Respiratory distress Assessment & Plan: Respiratory insufficiency requiring prolonged ventilator sup port. Patient on minimal vent settings right now currently in stable but unfortunately not safe for extubation. Tracheostomy is indicated recommended. I discussed case with pulmonology team ICU team medical teams. Patient unable to make decisions and her current condition and given her history. The care team has been contacted and will be reviewed for evaluation and consideration of the tracheostomy. If consented I think it is reasonable for tracheostomy given patient's current CODE STATUS care plan and goals of care. Extubation his current status is potentially high risk for reintubation emergency complication. We will plan for tracheostomy if consent is obtained. Thank you for let me participate patient's care will follow with recommendations will plan for trach when ready wean [id number] s/p trach 10?8 (2) Encephalopathy chronic (3) Dysphagia (4) Down's syndrome (5) Sepsis (6) Acute respiratory failure (7) Pneumonia (8) Trisomy 21, Down syndrome (9) LEANN (acute kidney injury) (10) Bacteremia (11) Hypokalemia (12) Anemia (13) Diarrhea (14) Hypernatremia (15) Pneumothorax (16) Pneumothorax, right Assessment & Plan: right ptx. s/p chest tube tube removed 07/11 left ptx tube placed / left CT to water seal (17) Cardiac arrest (18) ARDS (adult respiratory distress syndrome) (19) Septic shock (20) HCAP (healthcare-associated pneumonia) (21) Respiratory failure requiring intubation (22) Seizure disorder (23) Hypothyroidism Mark Gordon Jul 19, 2020 17:40
--- NOTE | 2020-07-19 17:42 | Internal Med Progress Note ---
Subjective Date of Service: Jul 19, 2020 Physician Name Joni Copeland Attending Physician Elayne Allred MD Current Medications Medications (Trade) Dose Ordered Sig/Katy Route PRN Reason Start Time Stop Time Status Last Admin Dose Admin Acetaminophen (Tylenol) 650 mg Q4H PRN GT For Pain 07/01/20 17:15 07/31/20 17:14 07/10/20 17:46 Chlorhexidine Gluconate (Alla-Hex 2%) 1 applic DAILY@2000 TOPIC 06/08/20 20:00 09/06/20 19:59 07/18/20 20:32 Clotrimazole (Lotrimin) 1 applic Q12HR TOPIC 06/07/20 13:00 09/05/20 12:59 07/19/20 08:13 Dextrose (Dextrose 50%) 25 ml Q30M PRN IV Hypoglycemia 06/03/20 11:30 08/28/20 11:29 Dextrose (Dextrose 50%) 50 ml Q30M PRN IV Hypoglycemia 06/03/20 11:30 08/28/20 11:29 Hydrocortisone (Solu-CORTEF) 25 mg Q12H IV 07/17/20 22:00 10/15/20 21:59 07/19/20 10:06 Insulin Aspart (NovoLOG) Q6HR SUBQ 06/26/20 12:00 09/24/20 11:59 07/18/20 06:05 Insulin Detemir (Levemir) 10 units Q12HR SUBQ 06/26/20 10:00 09/24/20 09:59 07/19/20 08:12 Levothyroxine Sodium (Synthroid) 75 mcg DAILY@0630 GT 07/08/20 06:30 08/07/20 06:29 07/19/20 05:59 Loperamide HCl (Imodium) 2 mg Q6H PRN NG Diarrhea 06/24/20 10:30 07/24/20 10:29 07/01/20 11:41 Lorazepam (Ativan 2mg/ml 1ml) 2 mg Q4H PRN IV For Anxiety 07/13/20 00:45 07/20/20 00:44 07/13/20 03:06 Pantoprazole (Protonix) 40 mg EVERY 12 HOURS IVP 07/06/20 21:00 08/05/20 20:59 07/19/20 08:10 Potassium Chloride (K-Dur) 40 meq EVERY 12 HOURS GT 07/04/20 21:00 09/26/20 12:14 07/19/20 08:10 Sodium Chloride 1,000 ml @ 50 mls/hr Q20H IV 07/12/20 11:00 08/11/20 10:59 07/19/20 02:42 Allergies: Coded Allergies: No Known Allergies (Unverified , 10/16/18) ROS Limited/Unobtainable: Yes Subjective 59 YO F with Down's syndrome admitted with hypoxia. Now sepsis and pneumonia. Cover for Int Med-DR Hawk. Step Down Unit Objective Last Vital Signs Date Time Temp Pulse Resp B/P (MAP) Pulse Ox O2 Delivery O2 Flow Rate FiO2 07/19/20 16:00 70 07/19/20 16:00 Mechanical Ventilator Mechanical Ventilator Mechanical Ventilator 07/19/20 16:00 97.7 52 22 130/86 (101) 98 Laboratory Tests Test 07/18/20 17:50 07/18/20 20:34 07/18/20 23:54 07/19/20 03:00 POC Whole Blood Glucose 105 MG/DL (74-106) Pending 93 MG/DL (74-106) White Blood Count 6.9 K/UL (4.8-10.8) Red Blood Count 2.49 M/UL (4.20-5.40) L Hemoglobin 7.8 G/DL (12.0-16.0) L Hematocrit 23.7 % (37.0-47.0) L Mean Corpuscular Volume 95 FL (80-99) Mean Corpuscular Hemoglobin 31.5 PG (27.0-31.0) H Mean Corpuscular Hemoglobin Concent 33.1 G/DL (32.0-36.0) Red Cell Distribution Width 17.9 % (11.6-14.8) H Platelet Count 81 K/UL (150-450) L Mean Platelet Volume 9.4 FL (6.5-10.1) Neutrophils (%) (Auto) % (45.0-75.0) Lymphocytes (%) (Auto) % (20.0-45.0) Monocytes (%) (Auto) % (1.0-10.0) Eosinophils (%) (Auto) % (0.0-3.0) Basophils (%) (Auto) % (0.0-2.0) Differential Total Cells Counted 100 Neutrophils % (Manual) 61 % (45-75) Lymphocytes % (Manual) 33 % (20-45) Monocytes % (Manual) 4 % (1-10) Eosinophils % (Manual) 2 % (0-3) Basophils % (Manual) 0 % (0-2) Band Neutrophils 0 % (0-8) Platelet Estimate Decreased L Platelet Morphology Normal Hypochromasia 1+ Anisocytosis 1+ Sodium Level 142 MMOL/L (136-145) Potassium Level 3.8 MMOL/L (3.5-5.1) Chloride Level 112 MMOL/L (98-107) H Carbon Dioxide Level 24 MMOL/L (21-32) Anion Gap 6 mmol/L (5-15) Blood Urea Nitrogen 14 mg/dL (7-18) Creatinine 0.5 MG/DL (0.55-1.30) L Estimat Glomerular Filtration Rate > 60 mL/min (>60) Glucose Level 114 MG/DL (74-106) H Uric Acid 3.1 MG/DL (2.6-7.2) Calcium Level 7.3 MG/DL (8.5-10.1) L Phosphorus Level 2.8 MG/DL (2.5-4.9) Magnesium Level 1.8 MG/DL (1.8-2.4) Total Bilirubin 0.7 MG/DL (0.2-1.0) Aspartate Amino Transf (AST/SGOT) 22 U/L (15-37) Alanine Aminotransferase (ALT/SGPT) 35 U/L (12-78) Alkaline Phosphatase 81 U/L (46-116) Total Protein 4.6 G/DL (6.4-8.2) L Albumin 1.3 G/DL (3.4-5.0) L Globulin 3.3 g/dL Albumin/Globulin Ratio 0.4 (1.0-2.7) L Test 07/19/20 05:06 07/19/20 07:56 07/19/20 08:08 07/19/20 11:10 POC Whole Blood Glucose 123 MG/DL (74-106) H 88 MG/DL (74-106) 109 MG/DL (74-106) H Arterial Blood pH 7.503 (7.350-7.450) Arterial Blood Partial Pressure CO2 28.5 mmHg (35.0-45.0) L Arterial Blood Partial Pressure O2 92.9 mmHg (75.0-100.0) Arterial Blood HCO3 21.9 mmol/L (22.0-26.0) L Arterial Blood Oxygen Saturation 97.0 % (95-100) Arterial Blood Base Excess -0.8 (-2-2) Jonathan Test Positive Intake and Output 07/18/20 07/19/20 19:00 07:00 Intake Total 770 ml 1165 ml Output Total 1130 ml 1200 ml Balance -360 ml -35 ml Free Water 120 ml 80 ml IV Total 50 ml 515 ml Tube Feeding 600 ml 550 ml Blood Product 20 ml Output Urine Total 950 ml 1200 ml Chest Tube Drainage Total 180 ml # Bowel Movements 1 2 Objective General Appearance: WD/WN, no apparent distress, alert EENT: PERRL/EOMI, normal ENT inspection Neck: non-tender, normal alignment, supple, normal inspection Cardiovascular: normal peripheral pulses, normal rate, regular rhythm, no gallop/murmur, no JVD Respiratory/Chest: Mech vent; decreased breath sounds, crackles/rales, rhonchi - bilaterally, expiratory wheezing Abdomen: normal bowel sounds, non tender, soft, no organomegaly, no mass Extremities: normal range of motion Neurologic: travel registered nurse icu II-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 S/P amikacin per ID=Dr Camejo. Pulmonary/Critical care=DR Allred. COVID NEG (2) Sepsis Assessment & Plan: Staph haemolyticus. S/P amikacin per ID=Dr Camejo (3) Down's syndrome (4) Dysphagia Assessment & Plan: S/P PEG (5) Seizure disorder Assessment & Plan: Continue keppra and depakote (6) Hypothyroidism Assessment & Plan: Continue synthroid (7) Acute respiratory failure Assessment & Plan: Pulmonary = Dr Allred; mech vent (8) Pneumothorax, right Assessment & Plan: Continue chest tube per pulmonary (9) Cardiac arrest Assessment & Plan: 06/03/20-see cardiology note=Joni Lord MD Jul 19, 2020 17:42
--- NOTE | 2020-07-19 19:19 | NUR ---
NURSE HAND-OFF REPORT: Important Events on Shift:Hgb 7.8, Notified Dr Allred, Dr Copeland is aware Patient Status: Stable Diet: Vital 1.2 @50 cc/hr Pending Orders: Pending Results/Labs: Pending MD notification: Latest Vital Signs: Temperature 97.7 , Pulse 44 , B/P 130 /86 , Respiratory Rate 22 , O2 SAT 98 , Mechanical Ventilator, O2 Flow Rate 15.0 . Vital Sign Comment:Stable EKG Rhythm: Sinus Bradycardia Rhythm change?: N MD Notified?: Y -Dr Arlin PRAKASH Response: No New Orders Received Latest Osorio Fall Score: 70 Fall Risk: High Risk Safety Measures: Call light Within Reach, Bed Alarm Zone 1, Side Rails Side Rails x3, Bed position Low and Locked. Fall Precautions: Yellow Socks Report given to Sugey LUJAN.
--- NOTE | 2020-07-19 19:20 | NUR ---
NURSE NOTES: Received report from TAI Kirk. Pt asleep and unable to make needs known. EKG shows SB at 50 BPM. Pt tolerating vent settings well at prescribed settings of A/C 20, Vt 500, 70% saturating 100%. JODY PICC patent and intact. GT running Vital AF at 50 cc with 0 residual. Gregorio draining well to gravity. Bed placed in lowest and locked position. Bed alarm on. Will continue morning.
[2020-07-19 20:00] VITALS: BP 138/78
[2020-07-19] MEDS: Dyna-Hex 2% Top Sol 2oz TOPIC SCH (20:57)
[2020-07-20] VITALS: BP_SYST 104; BP_SYST 110; BP_DIAS 64
[2020-07-20 04:00] VITALS: BP 105/61
--- NOTE | 2020-07-20 04:00 | NUR ---
NURSE NOTES: Pt in stable condition. RD at bedside.
[2020-07-20 04:26] LABS: HEMATOCRIT 22.8 % (37.0-47.0); HEMOGLOBIN 7.5 G/DL (12.0-16.0); MEAN CORPUSCULAR VOLUME 95 FL (80-99); PLATELET COUNT 72 K/UL (150-450); WHITE BLOOD COUNT 7.3 K/UL (4.8-10.8)
[2020-07-20 04:58] LABS: BLOOD UREA NITROGEN 14 mg/dL (7-18); CALCIUM 7.2 MG/DL (8.5-10.1); CARBON DIOXIDE 25 MMOL/L (21-32); CHLORIDE 109 MMOL/L (98-107); CREATININE 0.6 MG/DL (0.55-1.30); POTASSIUM 3.7 MMOL/L (3.5-5.1); SODIUM 140 MMOL/L (136-145)
[2020-07-20] MEDS: NovoLOG Insulin Flexpen SUBQ SCH ×4 (05:53→18:00)
--- NOTE | 2020-07-20 06:19 | Diagnostic Imaging Report ---
EXAM: XR Chest, 1 View CLINICAL HISTORY: Shortness of breath TECHNIQUE: Frontal view of the chest. COMPARISON: Chest x-ray dated 07/17/20 FINDINGS: Lungs: No significant change in diffuse bilateral airspace opacities. Pleural space: Unremarkable. The costophrenic angles are sharp. No visible pneumothorax. Heart: Unremarkable. No cardiomegaly. Mediastinum: Unremarkable. Bones/joints: Unremarkable. Tubes, lines and devices: Stable positioning of the tracheostomy tube .Telemetry leads overlie the thorax. IMPRESSION: No significant change compared to the prior chest x-ray from 07/17/20, with diffuse bilateral airspace opacities.
--- NOTE | 2020-07-20 07:30 | NUR ---
NURSE HAND-OFF: Important Events on Shift: n/a Patient Status: stable Diet: Vital AF Pending Orders: N Pending Results/Labs: N Pending MD notification: N Latest Vital Signs: Temperature 97.7 , Pulse 60 , B/P 105 /61 , Respiratory Rate 20 , O2 SAT 97 , Mechanical Ventilator, O2 Flow Rate 15.0 . Vital Sign Comment: Latest Osorio Fall Score: 70 Fall Risk: High Risk Safety Measures: Call light Within Reach, Bed Alarm Zone 1, Side Rails Side Rails x3, Bed position Low and Locked. Fall Precautions: Yellow Socks Report given to TAI Gao.
--- NOTE | 2020-07-20 07:30 | NUR ---
NURSE NOTES:Handoff received from TAI Nichols. Patient received resting in bed, no acute signs of distress noted. Patient has chest tube draining to gravity, breathing unlabored with O2 saturation of 96, patient has Shiley 8, vent settings are: AC 20 tidal volume 500, FIO2 of 45% and PEEP of 0. Patient G tube feeding is paused as patient received synthroid, will resume feeding after 1 hour, to continue Vital AF at 50ML/HR. Patient has left upper picc line running half NS at 50ml/hour. Patient has some sacral redness noted.Patient has side rails padded for seizure precaution, patient also on fall and aspiration precautions, bed in the lowest and locked position with call light within reach. Will monitor patient closely and follow plan of care.
[2020-07-20 08:00] VITALS: BP 114/58
--- NOTE | 2020-07-20 08:00 | NUR ---
NURSE NOTES: G tube feeding resumed.
--- NOTE | 2020-07-20 08:04 | NUR ---
RD ASSESSMENT & RECOMMENDATIONS SEE CARE ACTIVITY FOR COMPLETE ASSESSMENT DAILY ESTIMATED NEEDS: Needs based on CRITICAL CARE, 50kg 22-28 kcals/kg 5540-0116 total kcals 1.25-2 g protein/kg 63-100 g total protein 25-30 mL/kg 7013-4706 total fluid mLs NUTRITION DIAGNOSIS: Swallowing difficulty r/t dysphagia as evidenced by pt w/ Downs Syndrome, PEG dep for all nutritional needs, now intubated, off pressor support pending trach placement. CURRENT TF:Vital AF 1.2 @ 50ml/hr x 22 hrs (On Synthroid QD)- held for procedure ENTERAL NUTRITION RECOMMENDATIONS: Glucerna 1.2 @ 50ml/hr x 22 hrs to provide 1100ml, 1320 kcal, 66g prot, 886ml free wa ter * Rec TF change to Glucerna 1.2 for carb control formula. Start @30ml/hr, advance as tolerated to goal. * Hold 1 hr before and after Synthroid med * HOB over 30 degrees/ water flush per MD ADDITIONAL RECOMMENDATIONS: 1) Ht of 61 inches per SNF; recalibrate bed scale for accurate CBW 2) Add NISS: BGs elevated on Solucortef-> NOW ON NISS + LEVEMIR 3) Monitor hemodynamic stability: OFF PRESSOR SUPPORT 4) Wound healing: add Vit C 250mg QD + continue [place] BID 5) Monitor lytes, replete as needed 6) Probiotics for diarrhea -> none noted .
--- NOTE | 2020-07-20 09:02 | General Progress Note ---
Subjective ROS Limited/Unobtainable: No Allergies: Coded Allergies: No Known Allergies (Unverified , 10/16/18) Objective Last 24 Hour Vital Signs Date Time Temp Pulse Resp B/P (MAP) Pulse Ox O2 Delivery O2 Flow Rate FiO2 07/20/20 08:20 65 20 45 07/20/20 08:00 97.9 54 21 114/58 (76) 99 07/20/20 08:00 45 07/20/20 04:00 97.7 60 20 105/61 (76) 97 07/20/20 04:00 70 07/20/20 04:00 Mechanical Ventilator Mechanical Ventilator Mechanical Ventilator 07/20/20 03:37 64 07/20/20 03:00 57 20 45 07/20/20 00:00 Mechanical Ventilator Mechanical Ventilator Mechanical Ventilator 07/20/20 00:00 97.7 51 20 104/64 (77) 97 07/20/20 00:00 70 07/19/20 23:35 47 07/19/20 23:10 80 20 45 07/19/20 20:00 51 07/19/20 20:00 Mechanical Ventilator Mechanical Ventilator Mechanical Ventilator 07/19/20 20:00 70 07/19/20 20:00 97.8 64 20 138/78 (98) 98 07/19/20 19:59 50 20 45 07/19/20 16:26 44 07/19/20 16:00 70 07/19/20 16:00 Mechanical Ventilator Mechanical Ventilator Mechanical Ventilator 07/19/20 16:00 97.7 52 22 130/86 (101) 98 07/19/20 15:05 62 20 45 07/19/20 12:00 98.2 57 20 117/71 (86) 97 07/19/20 12:00 70 07/19/20 12:00 Mechanical Ventilator Mechanical Ventilator Mechanical Ventilator 07/19/20 11:40 48 07/19/20 11:11 51 20 45 Intake and Output 07/19/20 07/20/20 19:00 07:00 Intake Total 910 ml 1040 ml Output Total 1550 ml 600 ml Balance -640 ml 440 ml Free Water 260 ml 40 ml IV Total 50 ml 500 ml Tube Feeding 600 ml 500 ml Output Urine Total 1400 ml 600 ml Chest Tube Drainage Total 150 ml # Bowel Movements 2 Laboratory Tests 07/19/20 11:10: POC Whole Blood Glucose 109H 07/19/20 17:41: POC Whole Blood Glucose 149H 07/19/20 21:01: POC Whole Blood Glucose 129H 07/20/20 00:01: POC Whole Blood Glucose 133H 07/20/20 03:30: White Blood Count 7.3, Red Blood Count 2.40L, Hemoglobin 7.5L, Hematocrit 22.8L, Mean Corpuscular Volume 95, Mean Corpuscular Hemoglobin 31.3H, Mean Corpuscular Hemoglobin Concent 33.0, Red Cell Distribution Width 18.0H, Platelet Count 72L, Mean Platelet Volume 9.4, Neutrophils (%) (Auto) , Lymphocytes (%) (Auto) , Monocytes (%) (Auto) , Eosinophils (%) (Auto) , Basophils (%) (Auto) , Sodium Level 140, Potassium Level 3.7, Chloride Level 109H, Carbon Dioxide Level 25, Blood Urea Nitrogen 14, Creatinine 0.6, Estimat Glomerular Filtration Rate > 60, Glucose Level 171H, Calcium Level 7.2L, Thyroid Stimulating Hormone (TSH) 2.884, Free Thyroxine 0.94 07/20/20 05:51: POC Whole Blood Glucose 144H 07/20/20 07:30: Arterial Blood pH 7.444, Arterial Blood Partial Pressure CO2 36.4, Arterial Blood Partial Pressure O2 84.7, Arterial Blood HCO3 24.4, Arterial Blood Oxygen Saturation 96.1, Arterial Blood Base Excess 0.4, Jonathan Test Positive Height (Feet): 5 Height (Inches): 3.00 Weight (Pounds): 173 General Appearance: no apparent distress EENT: PERRL/EOMI Neck: supple Cardiovascular: normal rate Respiratory/Chest: decreased breath sounds Abdomen: normal bowel sounds, non tender, soft Extremities: non-tender Assessment/Plan Status: stable, unchanged Assessment/Plan: 1. History of Down syndrome. 2. Dysphagia with G-tube. 3. Seizure disorder. 4. Hypothyroidism. 5. LEANN. 6. Pneumonia. 7. Sepsis. fu H&H prn blood transfusion to keep HGB above 7 ppi GTF hold GI procedures for now Nehemiah Perez MD Jul 20, 2020 09:02
[2020-07-20] MEDS: Pantoprazole Inj IVP SCH ×2 (09:47→20:26)
[2020-07-20] MEDS: Levemir Flexpen SUBQ SCH ×2 (09:51→22:24)
[2020-07-20] MEDS: Hydrocortisone 100mg Inj IV SCH ×2 (09:52→22:28)
--- NOTE | 2020-07-20 11:23 | Pulmonology Progress Note ---
Subjective ROS Limited/Unobtainable: No Allergies: Coded Allergies: No Known Allergies (Unverified , 10/16/18) Subjective CT placed to water seal 07/18 CXR 07/19 -> Diffuse airspace opacities. ABG stable on AC 20 no fevers, no leukocytosis no resp distress Objective Last 24 Hour Vital Signs Date Time Temp Pulse Resp B/P (MAP) Pulse Ox O2 Delivery O2 Flow Rate FiO2 07/20/20 08:20 65 20 45 07/20/20 08:00 97.9 54 21 114/58 (76) 99 07/20/20 08:00 Mechanical Ventilator Mechanical Ventilator Mechanical Ventilator 07/20/20 08:00 45 07/20/20 08:00 58 07/20/20 04:00 97.7 60 20 105/61 (76) 97 07/20/20 04:00 70 07/20/20 04:00 Mechanical Ventilator Mechanical Ventilator Mechanical Ventilator 07/20/20 03:37 64 07/20/20 03:00 57 20 45 07/20/20 00:00 Mechanical Ventilator Mechanical Ventilator Mechanical Ventilator 07/20/20 00:00 97.7 51 20 104/64 (77) 97 07/20/20 00:00 70 07/19/20 23:35 47 07/19/20 23:10 80 20 45 07/19/20 20:00 51 07/19/20 20:00 Mechanical Ventilator Mechanical Ventilator Mechanical Ventilator 07/19/20 20:00 70 07/19/20 20:00 97.8 64 20 138/78 (98) 98 07/19/20 19:59 50 20 45 07/19/20 16:26 44 07/19/20 16:00 70 07/19/20 16:00 Mechanical Ventilator Mechanical Ventilator Mechanical Ventilator 07/19/20 16:00 97.7 52 22 130/86 (101) 98 07/19/20 15:05 62 20 45 07/19/20 12:00 98.2 57 20 117/71 (86) 97 07/19/20 12:00 70 07/19/20 12:00 Mechanical Ventilator Mechanical Ventilator Mechanical Ventilator 07/19/20 11:40 48 Intake and Output 07/19/20 07/20/20 19:00 07:00 Intake Total 910 ml 1040 ml Output Total 1550 ml 600 ml Balance -640 ml 440 ml Free Water 260 ml 40 ml IV Total 50 ml 500 ml Tube Feeding 600 ml 500 ml Output Urine Total 1400 ml 600 ml Chest Tube Drainage Total 150 ml # Bowel Movements 2 Objective Status: on Vent AC 500-20- 45% no PEEP Condition: critical HEENT: atraumatic, normocephalic, face with Down features, Neck: trach Shiley #8, in place, intact' secretions small amount, thin consistency, clear Lungs: R sided CT with serosanguineous drainage , few scattered rhonchi Heart: SR with BB, + 1 edema BLE Abdomen: soft, non-tender, G tube Decubiti: +1 edema BLE Lines: LUE PICC intact Laboratory Tests 07/19/20 17:41: POC Whole Blood Glucose 149H 07/19/20 21:01: POC Whole Blood Glucose 129H 07/20/20 00:01: POC Whole Blood Glucose 133H 07/20/20 03:30: White Blood Count 7.3, Red Blood Count 2.40L, Hemoglobin 7.5L, Hematocrit 22.8L, Mean Corpuscular Volume 95, Mean Corpuscular Hemoglobin 31.3H, Mean Corpuscular Hemoglobin Concent 33.0, Red Cell Distribution Width 18.0H, Platelet Count 72L, Mean Platelet Volume 9.4, Neutrophils (%) (Auto) , Lymphocytes (%) (Auto) , Monocytes (%) (Auto) , Eosinophils (%) (Auto) , Basophils (%) (Auto) , Sodium Level 140, Potassium Level 3.7, Chloride Level 109H, Carbon Dioxide Level 25, Blood Urea Nitrogen 14, Creatinine 0.6, Estimat Glomerular Filtration Rate > 60, Glucose Level 171H, Calcium Level 7.2L, Thyroid Stimulating Hormone (TSH) 2.884, Free Thyroxine 0.94 07/20/20 05:51: POC Whole Blood Glucose 144H 07/20/20 07:30: Arterial Blood pH 7.444, Arterial Blood Partial Pressure CO2 36.4, Arterial Blood Partial Pressure O2 84.7, Arterial Blood HCO3 24.4, Arterial Blood Oxygen Saturation 96.1, Arterial Blood Base Excess 0.4, Jonathan Test Positive Current Medications Medications (Trade) Dose Ordered Sig/Katy Route PRN Reason Start Time Stop Time Status Last Admin Dose Admin Acetaminophen (Tylenol) 650 mg Q4H PRN GT For Pain 07/01/20 17:15 07/31/20 17:14 07/10/20 17:46 Chlorhexidine Gluconate (Alla-Hex 2%) 1 applic DAILY@1999 TOPIC 06/08/20 20:00 09/06/20 19:59 07/19/20 20:57 Clotrimazole (Lotrimin) 1 applic Q12HR TOPIC 06/07/20 13:00 09/05/20 12:59 07/20/20 09:52 Dextrose (Dextrose 50%) 25 ml Q30M PRN IV Hypoglycemia 06/03/20 11:30 08/28/20 11:29 Dextrose (Dextrose 50%) 50 ml Q30M PRN IV Hypoglycemia 06/03/20 11:30 08/28/20 11:29 Hydrocortisone (Solu-CORTEF) 25 mg Q12H IV 07/17/20 22:00 10/15/20 21:59 07/20/20 09:52 Insulin Aspart (NovoLOG) Q6HR SUBQ 06/26/20 12:00 09/24/20 11:59 07/20/20 05:53 Insulin Detemir (Levemir) 10 units Q12HR SUBQ 06/26/20 10:00 09/24/20 09:59 07/20/20 09:51 Levothyroxine Sodium (Synthroid) 75 mcg DAILY@0630 GT 07/08/20 06:30 08/07/20 06:29 07/20/20 06:26 Loperamide HCl (Imodium) 2 mg Q6H PRN NG Diarrhea 06/24/20 10:30 07/24/20 10:29 07/01/20 11:41 Pantoprazole (Protonix) 40 mg EVERY 12 HOURS IVP 07/06/20 21:00 08/05/20 20:59 07/20/20 09:47 Potassium Chloride (K-Dur) 40 meq EVERY 12 HOURS GT 07/04/20 21:00 09/26/20 12:14 07/20/20 09:46 Sodium Chloride 1,000 ml @ 50 mls/hr Q20H IV 07/12/20 11:00 08/11/20 10:59 07/19/20 23:00 Assessment/Plan Assessment/Plan ASSESSMENT s/p cardiopulmonary arrest Acute hypoxemic respiratory failure requiring intubation Failure to wean s/p trach 07/16 Sepsis with shock Persistent CONS bacteremia Pneumonia ANIRUDH Pulm edema/ ARDS R PTX, s/p CT placement 06/29 and subsequent removal L PTX s/p CT placement 07/10 LEANN due to ATN 2 to hypotension Down syndrome Hypothyroidism Seizure disorder Anemia, requiring blood transfusion DM PLAN OF CARE GENARO vent support, pulmonary toilet trach care CXR 07/17 - Diffuse airspace opacities. Venous duplex BLE L CT to water seal since 07/18 , CXR 07/19 - Diffuse airspace opacities. PTX long resolved plan for dc CT soon - per surgery ABG stable this am on AC 20 on steroids-Hydrocortisone, decreased frequency off pressors; off midodrine now as well Echo with pEF 65% s/p abx COVID-19 x3 NGT prior persistent CONS bacteremia Echo no evidence of vegetation however BCX 06/06, 06/14, 06/16, 06/27 NGT per ID recs keep off abx unless febrile or evidence of infection 07/13 UCX +PSA colonizer as per ID Legionella Ag urine, blasto Ab, Histo Ab, HIV ab screen, FRANCIS, ANCA neg now SCX 07/13 + Proteus, colonizer stool OB + x1 and - x 2 prior off Heparin given on SCD s/p 3 u PRBC GI procedures on hold given current condition HH stabilized GI prophylaxis creat prior worsened due to Vanco , now resolved gentle IVF avoid nephrotoxic correct electrolytes as needed fup with further nephro recs continue levothyroxine , TSH within normal limits BS management with LA Levemir and SSI as needed seizure precautions, supportive care case discussed and evaluated by supervising physician Carla Jj NP Jul 20, 2020 11:23
--- NOTE | 2020-07-20 11:55 | NUR ---
NURSE NOTES: Bilateral soft wrist restraints removed as patient is co-operative and no longer requiring restraints at this time.
[2020-07-20 12:00] VITALS: BP 105/60
--- NOTE | 2020-07-20 12:34 | NUR ---
NURSE NOTES:Dr Gordon made rounds on patient. Chest tube removed by , patient tolerated well.
--- NOTE | 2020-07-20 12:46 | Surgery Progress Note ---
Surgery Progress Note Subjective Procedure Performed Tracheostomy Additional Comments cxr noted minimal ct output chest tube removed at bedside Objective Last 24 Hour Vital Signs Date Time Temp Pulse Resp B/P (MAP) Pulse Ox O2 Delivery O2 Flow Rate FiO2 07/20/20 12:00 45 07/20/20 12:00 Mechanical Ventilator Mechanical Ventilator Mechanical Ventilator 07/20/20 10:40 62 20 45 07/20/20 08:20 65 20 45 07/20/20 08:00 97.9 54 21 114/58 (76) 99 07/20/20 08:00 Mechanical Ventilator Mechanical Ventilator Mechanical Ventilator 07/20/20 08:00 45 07/20/20 08:00 58 07/20/20 04:00 97.7 60 20 105/61 (76) 97 07/20/20 04:00 70 07/20/20 04:00 Mechanical Ventilator Mechanical Ventilator Mechanical Ventilator 07/20/20 03:37 64 07/20/20 03:00 57 20 45 07/20/20 00:00 Mechanical Ventilator Mechanical Ventilator Mechanical Ventilator 07/20/20 00:00 97.7 51 20 104/64 (77) 97 07/20/20 00:00 70 07/19/20 23:35 47 07/19/20 23:10 80 20 45 07/19/20 20:00 51 07/19/20 20:00 Mechanical Ventilator Mechanical Ventilator Mechanical Ventilator 07/19/20 20:00 70 07/19/20 20:00 97.8 64 20 138/78 (98) 98 07/19/20 19:59 50 20 45 07/19/20 16:26 44 07/19/20 16:00 70 07/19/20 16:00 Mechanical Ventilator Mechanical Ventilator Mechanical Ventilator 07/19/20 16:00 97.7 52 22 130/86 (101) 98 07/19/20 15:05 62 20 45 I&O Intake and Output 07/19/20 07/20/20 19:00 07:00 Intake Total 910 ml 1040 ml Output Total 1550 ml 600 ml Balance -640 ml 440 ml Free Water 260 ml 40 ml IV Total 50 ml 500 ml Tube Feeding 600 ml 500 ml Output Urine Total 1400 ml 600 ml Chest Tube Drainage Total 150 ml # Bowel Movements 2 Drains: other Cardiovascular: RSR Respiratory: decreased breath sounds Abdomen: non-tender, present bowel sounds, non-distended Extremities: no tenderness, no cyanosis Laboratory Tests Test 07/19/20 17:41 07/19/20 21:01 07/20/20 00:01 07/20/20 03:30 POC Whole Blood Glucose 149 MG/DL (74-106) H 129 MG/DL (74-106) H 133 MG/DL (74-106) H White Blood Count 7.3 K/UL (4.8-10.8) Red Blood Count 2.40 M/UL (4.20-5.40) L Hemoglobin 7.5 G/DL (12.0-16.0) L Hematocrit 22.8 % (37.0-47.0) L Mean Corpuscular Volume 95 FL (80-99) Mean Corpuscular Hemoglobin 31.3 PG (27.0-31.0) H Mean Corpuscular Hemoglobin Concent 33.0 G/DL (32.0-36.0) Red Cell Distribution Width 18.0 % (11.6-14.8) H Platelet Count 72 K/UL (150-450) L Mean Platelet Volume 9.4 FL (6.5-10.1) Neutrophils (%) (Auto) % (45.0-75.0) Lymphocytes (%) (Auto) % (20.0-45.0) Monocytes (%) (Auto) % (1.0-10.0) Eosinophils (%) (Auto) % (0.0-3.0) Basophils (%) (Auto) % (0.0-2.0) Sodium Level 140 MMOL/L (136-145) Potassium Level 3.7 MMOL/L (3.5-5.1) Chloride Level 109 MMOL/L (98-107) H Carbon Dioxide Level 25 MMOL/L (21-32) Blood Urea Nitrogen 14 mg/dL (7-18) Creatinine 0.6 MG/DL (0.55-1.30) Estimat Glomerular Filtration Rate > 60 mL/min (>60) Glucose Level 171 MG/DL (74-106) H Calcium Level 7.2 MG/DL (8.5-10.1) L Thyroid Stimulating Hormone (TSH) 2.884 uiU/mL (0.358-3.740) Free Thyroxine 0.94 NG/DL (0.76-1.46) Test 07/20/20 05:51 07/20/20 07:30 07/20/20 12:18 POC Whole Blood Glucose 144 MG/DL (74-106) H 91 MG/DL (74-106) Arterial Blood pH 7.444 (7.350-7.450) Arterial Blood Partial Pressure CO2 36.4 mmHg (35.0-45.0) Arterial Blood Partial Pressure O2 84.7 mmHg (75.0-100.0) Arterial Blood HCO3 24.4 mmol/L (22.0-26.0) Arterial Blood Oxygen Saturation 96.1 % (95-100) Arterial Blood Base Excess 0.4 (-2-2) Jonathan Test Positive Plan Problems: (1) Respiratory distress Assessment & Plan: Respiratory insufficiency requiring prolonged ventilator support. Patient on minimal vent settings right now currently in stable but unfortunately not safe for extubation. Tracheostomy is indicated recommended. I discussed case with pulmonology team ICU team medical teams. Patient unable to make decisions and her current condition and given her history. The care team has been contacted and will be reviewed for evaluation and consideration of the tracheostomy. If consented I think it is reasonable for tracheostomy given patient's current CODE STATUS care plan and goals of care. Extubation his current status is potentially high risk for reintubation emergency complication. We will plan for tracheostomy if consent is obtained. Thank you for let me participate patient's care will follow with recommendations will plan for trach when ready wean fi02 s/p trach 10?8 (2) Encephalopathy chronic (3) Dysphagia (4) Down's syndrome (5) Sepsis (6) Acute respiratory failure (7) Pneumonia (8) Trisomy 21, Down syndrome (9) LEANN (acute kidney injury) (10) Bacteremia (11) Hypokalemia (12) Anemia (13) Diarrhea (14) Hypernatremia (15) Pneumothorax (16) Pneumothorax, right Assessment & Plan: right ptx. s/p chest tube tube removed 07/11 left ptx tube placed 07/[address] to water seal chest tube removed 07/20 (17) Cardiac arrest (18) ARDS (adult respiratory distress syndrome) (19) Septic shock (20) HCAP (healthcare-associated pneumonia) (21) Respiratory failure requiring intubation (22) Seizure disorder (23) Hypothyroidism Mark Gordon Jul 20, 2020 12:46
--- NOTE | 2020-07-20 12:49 | Operative Note - PDOC ---
Operative Note Operative Note Date of Operation/Procedure: Jul 20, 2020 Pre-op Diagnosis: left pneumothorax Procedure: removal left chest tube Post-op Diagnosis: same as pre-op Surgeon: Mark Gordon MD Specimen: none Complications: none Condition: stable Fluids: none Estimated Blood Loss: minimal Drains: none Implant(s) used?: No Description of Procedure cxr noted chest tube output minimal thoravent removed and dressings applied patient tolerated well cxr ordered Mark Gordon Jul 20, 2020 12:49
--- NOTE | 2020-07-20 13:02 | Nephrology Progress Note ---
Assessment/Plan Problem List: (1) LEANN (acute kidney injury) (2) Respiratory failure requiring intubation (3) Down's syndrome (4) Seizure disorder (5) Hypothyroidism Assessment Acute renal failure, likely due to hypotension Acute respiratory distress, hypoxia Seizure disorder Hypothyroidism Down syndrome Full code Fluid challenge with IV fluids and albumin Midodrine for BP above 100 systolic Check TSH level Check Correct level Monitor renal parameters Urine studies Per orders Plan July 20: Due discontinuation of chest tube today. Trach to vent. Renal parameters stable. July 19: Trach to vent. Left chest tube to drain. Full code. Labs reviewed. Renal parameters stable. July 18: Trached and vent. Still has left chest tube to drain. No chemistry panel today. Continue per consultants. Patient full code. July 17: Patient now has trach connected to vent. Left chest tube remains in place. Patient full code. Continue per consultants. Labs reviewed. July 16: Discussed with RN. Remains on ventilator. Labs reviewed. Stable from renal standpoint of view. Patient due for tracheostomy when clinically stable. July 15: On ventilator. Left chest tube remains. Full code. Labs reviewed. Electrolyte abnormalities addressed. Continue per consultants. July 14: On ventilator. Tracheostomy postponed because patient is clinically unstable. Still have left chest tube draining. Labs reviewed. Electrolyte abnormalities addressed. Continue per consultants. July 13: Remains intubated on ventilator. Discussed with RN. Unclear if the patient is due for tracheostomy today or not. Apparently the patient was reintubated again yesterday. Patient has left chest tube. Electrolyte abnormalities addressed. July 12: Remains intubated on ventilator. Due for tracheostomy tomorrow. Left chest tube present. Patient is full code. Labs reviewed. Continue as is. July 11: Remains intubated on ventilator. Due for tracheostomy July 13. Has left-sided chest tube. Stable from renal standpoint to view. Continue per consultants. July 10: Remains intubated on ventilator. Electrolyte abnormalities addressed. Supplements ordered. July 09: Intubated on ventilator. Labs reviewed. Potassium supplement given. Remains bradycardic. Continue per consultants. July 08: Labs reviewed. Electrolyte abnormalities addressed. Heart rate remains bradycardic. Continue per cardiology. Continue to monitor renal parameters and electrolytes. July 07: Labs reviewed. Electrolyte abnormalities addressed and replaced. Medication list reviewed. Heart rate remains mid 50s. Continue as is. July 06: On ventilator. Full code. Heart rate low. Will discontinue Midodrin. Continue to rest. Electrolytes within normal limit. Discussed with RN. July 05: Remains intubated. Full code. No plan for tracheostomy yet. Labs reviewed. All acceptable. Continue same management July 04: Labs reviewed. Discussed with RN. Potassium and phosphorus and magnesium replacement ordered. Hemoglobin 9.5. Patient remains full code. Continue per consultants. July 03: Lab reviewed. Renal parameters stable. Full code. Intubated. Electrolyte abnormalities addressed and replacement done. July 02: Lab reviewed. Renal parameters stable. Full code. Intubated. Has right side chest tube. Continue per consultants. July 01: Lab reviewed. Renal parameters stable. Full code. Has right chest tube. Planning process for tracheostomy. Defer to chest and general surgeon. June 30: Labs reviewed. Renal parameters stable. Remains full code. Remains on ventilator. Due for tracheostomy tomorrow. Continue per consultants. Patient has a right chest tube in place at this time. June 29: Labs reviewed. Electrolyte imbalances addressed and supplemented. Remains full code and on ventilator. Continue to monitor renal parameters. Continue per consultants. June 28: Labs reviewed. Serum potassium again low today. Potassium supplement IV and through GT given. Patient remains full code and is on ventilator. Continue per consultants. Continue to monitor electrolytes and renal parameters. June 27: Labs reviewed. Abnormal electrolyte addressed. Remains full code. Remains vented. June 26: Day 27 of hospitalization. Full code. Labs reviewed. Hemoglobin down to 7.5. Electrolyte abnormalities addressed and corrections ordered. Continue to monitor renal parameters. Continue per consultants. Start on L evemir for blood sugar management. Questioning continuation of hydrocortisone? June 25: Labs reviewed. Potassium, phosphorus, hemoglobin, are all low. Potassium and phosphorus IV replacement given. Continue to monitor electrolytes and CBC. Patient remains full code. June 24: Lab reviewed. Low phosphorus low magnesium and low potassium was addressed. Hemoglobin drifting lower. Continue per consultants. Patient remains full code. June 23: Labs reviewed. Patient continues to be on ventilator. D5W for high sodium and also potassium chloride intravenously as supplement given. Hemoglobin 8.4. Continue to monitor electrolytes and renal parameters. June 22: Labs reviewed. Low potassium and high sodium noted. Hemoglobin 8.1 stable. Aim to correct abnormal electrolyte. Continue rest. Will give 2 boluses of D5W 500 cc. June 21: Lab reviewed. Abnormal electrolytes noted and addressed. June 20: Labs reviewed. Potassium supplement given. Patient remains full code. Continue per consultants. June 19: Lab reviewed. Electrolyte abnormalities addressed. Continue per pulmonary and ID. June 18: Lab reviewed. Status unchanged. Serum sodium 151 unchanged. Stable from renal standpoint of view. June 17: Labs reviewed. Status quo. D5W 500 cc IV ordered. Continue to monitor renal parameters. June 16: Status quo. Labs reviewed. Overall condition unchanged. Patient was transfused and hemoglobin higher. Continue current management. Patient remains full code. June 15: Status quo. Overall condition poor. Very low albumin. Edematous. Hypotensive. Hemoglobin lower. Anemia work-up ordered. I favor transfusion 2 units of packed RBCs. Patient remains full code. I favor supportive care only. Will discuss. June 14: Electrolyte abnormalities addressed. Serum creatinine lower. Continue per current management. June 13: Status unchanged. Lab reviewed. Serum potassium 2.7. IV potassium chloride ordered. Serum creatinine low at 1.6 stable. Blood pressure 90s systolic June 12: Status quo. Labs reviewed. Renal parameters stable. Serum creatinine down to 1.6. Medication list reviewed. Continues to be on midodrine. Continue per consultants. June 11: Status quo. Labs reviewed. Electrolytes adjusted. Serum creatinine down to 1.8. Continue per consultants. June 10: Status quo. Labs reviewed. Phosphorus supplement IV given. Serum creatinine 2. Continue per consultants. June 09: Requires less pressors. Albumin bolus given. 1 dose of Lasix IV ordered as the patient severely edematous. Patient serum albumin is very low. Continue per consultants. June 08: Continues to be intubated. Labs reviewed. Serum creatinine 1.9 unchanged. Blood pressure more stable. Off 1 of the pressors. Continue to monitor renal parameters. Continue per consultants. Patient now on hydrocortisone 100 mg every 8 hours. Will decrease IV fluid. Normal saline down to 50 cc an hour. June 07: Intubated. Labs reviewed. Creatinine 1.9 unchanged. Continue same treatment plan. Per consultants. Overall poor prognosis since the patient remains on pressors and her pulmonary status is worsening. June 06: Remains intubated. Labs reviewed. Creatinine 1.9. Blood pressure systolic 90s. Continue per consultants. June 05: Remains intubated. Labs reviewed. Serum creatinine lower to 2. Vancomycin level lower. Remains hypotensive on pressors. Will increase midodrine to 10 mg every 8 hours. Continue per consultants. Continue to monitor renal parameters. June 04: Patient now in ICU. Intubated. On pressors. Labs reviewed. Will increase midodrine. Aim to keep blood pressure over 100 systolic. Will give albumin bolus. Will check vancomycin level which was elevated when checked previously on June 01. Will monitor renal parameters. Continue per consultants. Subjective ROS Limited/Unobtainable: Yes Objective Objective Last 24 Hour Vital Signs Date Time Temp Pulse Resp B/P (MAP) Pulse Ox O2 Delivery O2 Flow Rate FiO2 07/20/20 12:00 45 07/20/20 12:00 Mechanical Ventilator Mechanical Ventilator Mechanical Ventilator 07/20/20 12:00 57 07/20/20 10:40 62 20 45 07/20/20 08:20 65 20 45 07/20/20 08:00 97.9 54 21 114/58 (76) 99 07/20/20 08:00 Mechanical Ventilator Mechanical Ventilator Mechanical Ventilator 07/20/20 08:00 45 07/20/20 08:00 58 07/20/20 04:00 97.7 60 20 105/61 (76) 97 07/20/20 04:00 70 07/20/20 04:00 Mechanical Ventilator Mechanical Ventilator Mechanical Ventilator 07/20/20 03:37 64 07/20/20 03:00 57 20 45 07/20/20 00:00 Mechanical Ventilator Mechanical Ventilator Mechanical Ventilator 07/20/20 00:00 97.7 51 20 104/64 (77) 97 07/20/20 00:00 70 07/19/20 23:35 47 07/19/20 23:10 80 20 45 07/19/20 20:00 51 07/19/20 20:00 Mechanical Ventilator Mechanical Ventilator Mechanical Ventilator 07/19/20 20:00 70 07/19/20 20:00 97.8 64 20 138/78 (98) 98 07/19/20 19:59 50 20 45 07/19/20 16:26 44 07/19/20 16:00 70 07/19/20 16:00 Mechanical Ventilator Mechanical Ventilator Mechanical Ventilator 07/19/20 16:00 97.7 52 22 130/86 (101) 98 07/19/20 15:05 62 20 45 Intake and Output 07/19/20 07/20/20 19:00 07:00 Intake Total 910 ml 1040 ml Output Total 1550 ml 600 ml Balance -640 ml 440 ml Free Water 260 ml 40 ml IV Total 50 ml 500 ml Tube Feeding 600 ml 500 ml Output Urine Total 1400 ml 600 ml Chest Tube Drainage Total 150 ml # Bowel Movements 2 Laboratory Tests 07/19/20 17:41: POC Whole Blood Glucose 149H 07/19/20 21:01: POC Whole Blood Glucose 129H 07/20/20 00:01: POC Whole Blood Glucose 133H 07/20/20 03:30: White Blood Count 7.3, Red Blood Count 2.40L, Hemoglobin 7.5L, Hematocrit 22.8L, Mean Corpuscular Volume 95, Mean Corpuscular Hemoglobin 31.3H, Mean Corpuscular Hemoglobin Concent 33.0, Red Cell Distribution Width 18.0H, Platelet Count 72L, Mean Platelet Volume 9.4, Neutrophils (%) (Auto) , Lymphocytes (%) (Auto) , Monocytes (%) (Auto) , Eosinophils (%) (Auto) , Basophils (%) (Auto) , Sodium Level 140, Potassium Level 3.7, Chloride Level 109H, Carbon Dioxide Level 25, Blood Urea Nitrogen 14, Creatinine 0.6, Estimat Glomerular Filtration Rate > 60, Glucose Level 171H, Calcium Level 7.2L, Thyroid Stimulating Hormone (TSH) 2.884, Free Thyroxine 0.94 07/20/20 05:51: POC Whole Blood Glucose 144H 07/20/20 07:30: Arterial Blood pH 7.444, Arterial Blood Partial Pressure CO2 36.4, Arterial Blood Partial Pressure O2 84.7, Arterial Blood HCO3 24.4, Arterial Blood Oxygen Saturation 96.1, Arterial Blood Base Excess 0.4, Jonathan Test Positive 07/20/20 12:18: POC Whole Blood Glucose 91 Height (Feet): 5 Height (Inches): 3.00 Weight (Pounds): 173 General Appearance: no apparent distress EENT: other - Trach to vent Respiratory/Chest: other - Left chest tube Abdomen: distended Keron Pitt MD Jul 20, 2020 13:02
--- NOTE | 2020-07-20 13:40 | Infectious Diseases Prog Note ---
Assessment/Plan ASSESSMENT: sp code blue 06/03 Septic Shock; SP Fever, recurrent- low grade -SP Leukocytosis; recurrent; SP 10/5 u/a -, nit neg, leuk +2; ucx PsA (I Genta); colonizer sp cx P, mirabilsi (R levo); colonzier -06/27 Bcx Neg -06/17 u/a no pyuria -06/16 Bcx Neg(Picc line) -06/14 Bcx Neg ucx Neg sp cx C. parapsilopsis -06/03 u/a no pyuria Pneumonia.- COVID 19 neg x3 Acute hypoxic resp failure on VM> NRB 15l 100%; hypoxic on ABG> now VDRF 06/03- Fio2 80% >100% 06/05> 60% 06/09 >80% 06/10 >95% 06/18 >90% 06/22 >60% 06/23 R tension Pneumothroax sp CT 06/29 07/17 sp trach 07/17 CXR: Diffuse airspace opacities. 07/16 CXR: bilateral infiltrates are all unchanged. 07/13 CXR: Extensive bilateral airspace opacities, right greater than left, consistent with multifocal infiltrate worse pulmonary edema. This is similar in appearance to the prior study. Worsening, small left pleural effusion. This may be secondary to redistribution as the right-sided pleural effusion has mildly improved. -06/30 CXR: Interim complete reexpansion of right lung without evidence of residual pneumothorax. Bilateral diffuse and extensive infiltrates. Markedly improved chest wall subcutaneous emphysema -06/29 CXR: Interim reexpansion of previously demonstrated right pneumothorax, status post large bore chest tube placement. -06/22 CXR: Improved aeration of both lungs. -06/13 CXR:Small bilateral pleural effusions with minor edema. Stable edema with mild worsening in the degree of pleural effusion on the right. -06/09 sp cx Neg 06/08 CXR: Extensive bilateral interstitial and airspace disease appears similar to the prior exam. Moderate to large bilateral pleural effusions appear unchanged. 06/05 CXR: Increasing left upper lobe dense consolidation and likely increasing bilateral pleural fluid. Persistent diffuse dense consolidation elsewhere -06/03 sp cx normal resp marie -06/02 CXR: Increased atelectasis of the right lung, since prior exam of 3 days earlier. New or increased right pleural effusion. Increased left basilar consolidation and/or pleural fluid -COVID Rapid PCR neg 05/31, 05/31, 06/03 -05/30 spc x Group G strep -05/30 CXR: Reduced lung volumes. Patchy bilateral predominantly interstitial pulmonary opacities. Could be from edema and/or pneumonia. There is a broader differential. -legionella ag urine, blasto ab, Histo ab, HIV ab screen, FRANCIS, ANCA neg Persistent, high grade bacteremia- -05/30 Bcx 4/4 sets S. haemolyticus; 05/31 Bcx 3/4 S/ epi; 06/04 Bcx 1.4 S. warnerri; 06/06 Bcx Neg -2d echo: no vegetaions seen ua/ wbc 10-15, nit neg, leuk +1; ucx Neg LEANN; -supratherapeutic vanco levels -Seizure disorder. - Hypothyroidism. - Down syndrome. History of PEG tube placement. MD resident PLAN: Monitor off abx unless febrile, increasing WBC and/or HD unstable 06/22 SP Meropenem #18, IV Amikacin #7 06/12/20 SP Daptomycin #11 06/10 SP MIcafungin #7, Linezolid #5 06/05 SP Azithromycin #7/7 06/03 SP Ceftriaxone #2 06/02 SP IV Vancomycin #4, Zosyn #4 05/30 SP Cefepime x1, Flagyl x1 - Monitor CBC, BMP. .f/u cx - COVID neg x3 - Monitor chest x-ray. -PEG/Trach care -aspiration precautions Thank you, Dr. Allred, for allowing me to participate in the care of this patient. I will follow the patient with you at this hospitalization. Discussed with RN Subjective Allergies: Coded Allergies: No Known Allergies (Unverified , 10/16/18) afebrile no leukocytosis Objective Last 24 Hour Vital Signs Date Time Temp Pulse Resp B/P (MAP) Pulse Ox O2 Delivery O2 Flow Rate FiO2 07/20/20 12:00 45 07/20/20 12:00 Mechanical Ventilator Mechanical Ventilator Mechanical Ventilator 07/20/20 12:00 98.4 60 22 105/60 (75) 95 07/20/20 12:00 57 07/20/20 10:40 62 20 45 07/20/20 08:20 65 20 45 07/20/20 08:00 97.9 54 21 114/58 (76) 99 07/20/20 08:00 Mechanical Ventilator Mechanical Ventilator Mechanical Ventilator 07/20/20 08:00 45 07/20/20 08:00 58 07/20/20 04:00 97.7 60 20 105/61 (76) 97 07/20/20 04:00 70 07/20/20 04:00 Mechanical Ventilator Mechanical Ventilator Mechanical Ventilator 07/20/20 03:37 64 07/20/20 03:00 57 20 45 07/20/20 00:00 Mechanical Ventilator Mechanical Ventilator Mechanical Ventilator 07/20/20 00:00 97.7 51 20 104/64 (77) 97 07/20/20 00:00 70 07/19/20 23:35 47 07/19/20 23:10 80 20 45 07/19/20 20:00 51 07/19/20 20:00 Mechanical Ventilator Mechanical Ventilator Mechanical Ventilator 07/19/20 20:00 70 07/19/20 20:00 97.8 64 20 138/78 (98) 98 07/19/20 19:59 50 20 45 07/19/20 16:26 44 07/19/20 16:00 70 07/19/20 16:00 Mechanical Ventilator Mechanical Ventilator Mechanical Ventilator 07/19/20 16:00 97.7 52 22 130/86 (101) 98 07/19/20 15:05 62 20 45 Height (Feet): 5 Height (Inches): 3.00 Weight (Pounds): 173 HEENT: . trach in place CHEST: Coarse breathing sounds. HEART: S1 and S2. ABDOMEN: Soft. PEG tube in place. SKIN: no rash Laboratory Tests Test 07/19/20 17:41 07/19/20 21:01 07/20/20 00:01 07/20/20 03:30 POC Whole Blood Glucose 149 MG/DL (74-106) H 129 MG/DL (74-106) H 133 MG/DL (74-106) H White Blood Count 7.3 K/UL (4.8-10.8) Red Blood Count 2.40 M/UL (4.20-5.40) L Hemoglobin 7.5 G/DL (12.0-16.0) L Hematocrit 22.8 % (37.0-47.0) L Mean Corpuscular Volume 95 FL (80-99) Mean Corpuscular Hemoglobin 31.3 PG (27.0-31.0) H Mean Corpuscular Hemoglobin Concent 33.0 G/DL (32.0-36.0) Red Cell Distribution Width 18.0 % (11.6-14.8) H Platelet Count 72 K/UL (150-450) L Mean Platelet Volume 9.4 FL (6.5-10.1) Neutrophils (%) (Auto) % (45.0-75.0) Lymphocytes (%) (Auto) % (20.0-45.0) Monocytes (%) (Auto) % (1.0-10.0) Eosinophils (%) (Auto) % (0.0-3.0) Basophils (%) (Auto) % (0.0-2.0) Sodium Level 140 MMOL/L (136-145) Potassium Level 3.7 MMOL/L (3.5-5.1) Chloride Level 109 MMOL/L (98-107) H Carbon Dioxide Level 25 MMOL/L (21-32) Blood Urea Nitrogen 14 mg/dL (7-18) Creatinine 0.6 MG/DL (0.55-1.30) Estimat Glomerular Filtration Rate > 60 mL/min (>60) Glucose Level 171 MG/DL (74-106) H Calcium Level 7.2 MG/DL (8.5-10.1) L Thyroid Stimulating Hormone (TSH) 2.884 uiU/mL (0.358-3.740) Free Thyroxine 0.94 NG/DL (0.76-1.46) Test 07/20/20 05:51 07/20/20 07:30 07/20/20 12:18 POC Whole Blood Glucose 144 MG/DL (74-106) H 91 MG/DL (74-106) Arterial Blood pH 7.444 (7.350-7.450) Arterial Blood Partial Pressure CO2 36.4 mmHg (35.0-45.0) Arterial Blood Partial Pressure O2 84.7 mmHg (75.0-100.0) Arterial Blood HCO3 24.4 mmol/L (22.0-26.0) Arterial Blood Oxygen Saturation 96.1 % (95-100) Arterial Blood Base Excess 0.4 (-2-2) Jonathan Test Positive Current Medications Medications (Trade) Dose Ordered Sig/Katy Route PRN Reason Start Time Stop Time Status Last Admin Dose Admin Acetaminophen (Tylenol) 650 mg Q4H PRN GT For Pain 07/01/20 17:15 07/31/20 17:14 07/10/20 17:46 Chlorhexidine Gluconate (Alla-Hex 2%) 1 applic DAILY@2000 TOPIC 06/08/20 20:00 09/06/20 19:59 07/19/20 20:57 Clotrimazole (Lotrimin) 1 applic Q12HR TOPIC 06/07/20 13:00 09/05/20 12:59 07/20/20 09:52 Dextrose (Dextrose 50%) 25 ml Q30M PRN IV Hypoglycemia 06/03/20 11:30 08/28/20 11:29 Dextrose (Dextrose 50%) 50 ml Q30M PRN IV Hypoglycemia 06/03/20 11:30 08/28/20 11:29 Hydrocortisone (Solu-CORTEF) 25 mg Q12H IV 07/17/20 22:00 10/15/20 21:59 07/20/20 09:52 Insulin Aspart (NovoLOG) Q6HR SUBQ 06/26/20 12:00 09/24/20 11:59 07/20/20 05:53 Insulin Detemir (Levemir) 10 units Q12HR SUBQ 06/26/20 10:00 09/24/20 09:59 07/20/20 09:51 Levothyroxine Sodium (Synthroid) 75 mcg DAILY@0630 GT 07/08/20 06:30 08/07/20 06:29 07/20/20 06:26 Loperamide HCl (Imodium) 2 mg Q6H PRN NG Diarrhea 06/24/20 10:30 07/24/20 10:29 07/01/20 11:41 Pantoprazole (Protonix) 40 mg EVERY 12 HOURS IVP 07/06/20 21:00 08/05/20 20:59 07/20/20 09:47 Potassium Chloride (K-Dur) 40 meq EVERY 12 HOURS GT 07/04/20 21:00 09/26/20 12:14 07/20/20 09:46 Sodium Chloride 1,000 ml @ 50 mls/hr Q20H IV 07/12/20 11:00 08/11/20 10:59 07/19/20 23:00 Suki Camejo M.D. Jul 20, 2020 13:40
[2020-07-20 16:00] VITALS: BP 104/51
--- NOTE | 2020-07-20 16:43 | NUR ---
CASE MANAGEMENT: REVIEW SI: ARDS . RESP FAILURE . DOWN'S SYNDROME . PNEUMOTHORAX TRACHEOSTOMY 07/16 RIGHT CHEST TUBE 07/10 T 98.4 HR 54 RR 21 BP 114/58 SAT 99% MECH VENT FIO2 45 H/H 7.5/22.8 GLUCOSE 171 IS: NS IVF @ 50ML/HR SOLU CORTEF IV Q12HR PROTONIX IV Q12HR STEP DOWN UNIT STATUS DCP: PATIENT IS FROM [facility]
--- NOTE | 2020-07-20 18:57 | Diagnostic Imaging Report ---
Indication: Shortness of breath Technique: One view of the chest Comparison: 07/19/2020 Findings: Left chest vent catheter, tracheostomy, left arm PICC, bilateral interstitial and airspace infiltrates persist, unchanged Impression: . Unchanged, over one day, findings as above.
--- NOTE | 2020-07-20 19:08 | NUR ---
RESPIRATORY NOTE: Received pt on AC 20, 500VT, 45%, no PEEP. Pt is trach-dependent w/ a Cuffed, Shiley 8 tube. Pt is awake/disoriented. B/S sissy. rhonchi, sxn small to moderate amounts of thick/thin/frothy, pale-yellow secretions. Vent plugged into red outlet, ambubag at bedside. Pt in no apparent distress at this time. Will continue plan of care.
--- NOTE | 2020-07-20 19:14 | NUR ---
NURSE HAND-OFF REPORT: Important Events on Shift:Chest tube removed by Dr Gordon. Patient Status: Stable Diet: Vital A.F @ 50ML/HR Pending Orders: CXR 07/21 @ 0400 Pending Results/Labs: Pending MD notification: Latest Vital Signs: Temperature 98.1 , Pulse 59 , B/P 104 /51 , Respiratory Rate 21 , O2 SAT 99 , Mechanical Ventilator, O2 Flow Rate 15.0 . Vital Sign Comment: EKG Rhythm: Sinus Bradycardia Rhythm change?: N Notified?: Y -Dr Arlin PRAKASH Response: No New Orders Received Latest Osorio Fall Score: 70 Fall Risk: High Risk Safety Measures: Call light Within Reach, Bed Alarm Zone 1, Side Rails Side Rails x3, Bed position Low and Locked. Fall Precautions: Bed alarm, bed in low and locked position. Yellow Socks Report given to TAI Nichols.
--- NOTE | 2020-07-20 19:15 | NUR ---
NURSE NOTES: Received report from TAI Gao with update. Pt observed with no cardiac or respiratory distress. Tolerating vent settings well at prescribed rate. 0 residual g-tube running Vital AF. Observed with no chest tube as d/c by Dr. Gordon earlier today. No bleeding at the site noted. Pt in stable condition. Will continue monitoring.
[2020-07-20 20:00] VITALS: BP 109/58
--- NOTE | 2020-07-20 20:18 | Internal Med Progress Note ---
Subjective Date of Service: Jul 20, 2020 Physician Name Joni Copeland Attending Physician Elayne Allred MD Current Medications Medications (Trade) Dose Ordered Sig/Katy Route PRN Reason Start Time Stop Time Status Last Admin Dose Admin Acetaminophen (Tylenol) 650 mg Q4H PRN GT For Pain 07/01/20 17:15 07/31/20 17:14 07/10/20 17:46 Chlorhexidine Gluconate (Alla-Hex 2%) 1 applic DAILY@2000 TOPIC 06/08/20 20:00 09/06/20 19:59 07/19/20 20:57 Clotrimazole (Lotrimin) 1 applic Q12HR TOPIC 06/07/20 13:00 09/05/20 12:59 07/20/20 09:52 Dextrose (Dextrose 50%) 25 ml Q30M PRN IV Hypoglycemia 06/03/20 11:30 08/28/20 11:29 Dextrose (Dextrose 50%) 50 ml Q30M PRN IV Hypoglycemia 06/03/20 11:30 08/28/20 11:29 Hydrocortisone (Solu-CORTEF) 25 mg Q12H IV 07/17/20 22:00 10/15/20 21:59 07/20/20 09:52 Insulin Aspart (NovoLOG) Q6HR SUBQ 06/26/20 12:00 09/24/20 11:59 07/20/20 05:53 Insulin Detemir (Levemir) 10 units Q12HR SUBQ 06/26/20 10:00 09/24/20 09:59 07/20/20 09:51 Levothyroxine Sodium (Synthroid) 75 mcg DAILY@0630 GT 07/08/20 06:30 08/07/20 06:29 07/20/20 06:26 Loperamide HCl (Imodium) 2 mg Q6H PRN NG Diarrhea 06/24/20 10:30 07/24/20 10:29 07/01/20 11:41 Pantoprazole (Protonix) 40 mg EVERY 12 HOURS IVP 07/06/20 21:00 08/05/20 20:59 07/20/20 09:47 Potassium Chloride (K-Dur) 40 meq EVERY 12 HOURS GT 07/04/20 21:00 09/26/20 12:14 07/20/20 09:46 Sodium Chloride 1,000 ml @ 50 mls/hr Q20H IV 07/12/20 11:00 08/11/20 10:59 07/20/20 18:37 Allergies: Coded Allergies: No Known Allergies (Unverified , 10/16/18) ROS Limited/Unobtainable: Yes Subjective 59 YO F with Down's syndrome admitted with hypoxia. Now sepsis and pneumonia. Cover for Int Arturo-DR Hawk. Step Down Unit Objective Last Vital Signs Date Time Temp Pulse Resp B/P (MAP) Pulse Ox O2 Delivery O2 Flow Rate FiO2 07/20/20 19:04 59 21 45 07/20/20 16:00 98.1 104/51 (68) 99 07/20/20 16:00 Mechanical Ventilator Mechanical Ventilator Mechanical Ventilator Laboratory Tests Test 07/19/20 21:01 07/20/20 00:01 07/20/20 03:30 07/20/20 05:51 POC Whole Blood Glucose 129 MG/DL (74-106) H 133 MG/DL (74-106) H 144 MG/DL (74-106) H White Blood Count 7.3 K/UL (4.8-10.8) Red Blood Count 2.40 M/UL (4.20-5.40) L Hemoglobin 7.5 G/DL (12.0-16.0) L Hematocrit 22.8 % (37.0-47.0) L Mean Corpuscular Volume 95 FL (80-99) Mean Corpuscular Hemoglobin 31.3 PG (27.0-31.0) H Mean Corpuscular Hemoglobin Concent 33.0 G/DL (32.0-36.0) Red Cell Distribution Width 18.0 % (11.6-14.8) H Platelet Count 72 K/UL (150-450) L Mean Platelet Volume 9.4 FL (6.5-10.1) Neutrophils (%) (Auto) % (45.0-75.0) Lymphocytes (%) (Auto) % (20.0-45.0) Monocytes (%) (Auto) % (1.0-10.0) Eosinophils (%) (Auto) % (0.0-3.0) Basophils (%) (Auto) % (0.0-2.0) Sodium Level 140 MMOL/L (136-145) Potassium Level 3.7 MMOL/L (3.5-5.1) Chloride Level 109 MMOL/L (98-107) H Carbon Dioxide Level 25 MMOL/L (21-32) Blood Urea Nitrogen 14 mg/dL (7-18) Creatinine 0.6 MG/DL (0.55-1.30) Estimat Glomerular Filtration Rate > 60 mL/min (>60) Glucose Level 171 MG/DL (74-106) H Calcium Level 7.2 MG/DL (8.5-10.1) L Thyroid Stimulating Hormone (TSH) 2.884 uiU/mL (0.358-3.740) Free Thyroxine 0.94 NG/DL (0.76-1.46) Test 07/20/20 07:30 07/20/20 12:18 07/20/20 18:18 Arterial Blood pH 7.444 (7.350-7.450) Arterial Blood Partial Pressure CO2 36.4 mmHg (35.0-45.0) Arterial Blood Partial Pressure O2 84.7 mmHg (75.0-100.0) Arterial Blood HCO3 24.4 mmol/L (22.0-26.0) Arterial Blood Oxygen Saturation 96.1 % (95-100) Arterial Blood Base Excess 0.4 (-2-2) Jonathan Test Positive POC Whole Blood Glucose 91 MG/DL (74-106) 113 MG/DL (74-106) H Intake and Output 07/19/20 07/20/20 19:00 07:00 Intake Total 910 ml 1090 ml Output Total 1550 ml 600 ml Balance -640 ml 490 ml Free Water 260 ml 40 ml IV Total 50 ml 550 ml Tube Feeding 600 ml 500 ml Output Urine Total 1400 ml 600 ml Chest Tube Drainage Total 150 ml # Bowel Movements 2 Objective General Appearance: WD/WN, no apparent distress, alert EENT: PERRL/EOMI, normal ENT inspection Neck: non-tender, normal alignment, supple, normal inspection Cardiovascular: normal peripheral pulses, normal rate, regular rhythm, no gallop/murmur, no JVD Respiratory/Chest: Mech vent; decreased breath sounds, crackles/rales, rhonchi - bilaterally, expiratory wheezing Abdomen: normal bowel sounds, non tender, soft, no organomegaly, no mass Extremities: normal range of motion Neurologic: bleach tester II-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 S/P amikacin per ID=Dr Camejo. Pulm onary/Critical care=DR Allred. COVID NEG (2) Sepsis Assessment & Plan: Staph haemolyticus. S/P amikacin per ID=Dr Camejo (3) Down's syndrome (4) Dysphagia Assessment & Plan: S/P PEG (5) Seizure disorder Assessment & Plan: Continue keppra and depakote (6) Hypothyroidism Assessment & Plan: Continue synthroid (7) Acute respiratory failure Assessment & Plan: Pulmonary = Dr Allred; mech vent (8) Pneumothorax, right Assessment & Plan: Continue chest tube per pulmonary (9) Cardiac arrest Assessment & Plan: 06/03/20-see cardiology note=Joni Lord MD Jul 20, 2020 20:18
[2020-07-20] MEDS: Dyna-Hex 2% Top Sol 2oz TOPIC SCH (20:26)
[2020-07-21] VITALS: BP 137/51
[2020-07-21 04:00] VITALS: BP 125/55
[2020-07-21] MEDS: NovoLOG Insulin Flexpen SUBQ SCH ×4 (05:26→18:00)
--- NOTE | 2020-07-21 05:44 | NUR ---
NURSE NOTES: PICC line dressing changed. No signs of pulling medical devices. Pt awake and smiling at nurses. In stable condition.
[2020-07-21 05:48] LABS: HEMOGLOBIN 7.4 G/DL (12.0-16.0); MEAN CORPUSCULAR VOLUME 94 FL (80-99); PLATELET COUNT 79 K/UL (150-450); RED BLOOD COUNT 2.33 M/UL (4.20-5.40); RED CELL DISTRIBUTION WIDTH 17.6 % (11.6-14.8); WHITE BLOOD COUNT 8.6 K/UL (4.8-10.8)
[2020-07-21 06:05] LABS: PHOSPHORUS 2.6 MG/DL (2.5-4.9)
[2020-07-21 06:06] LABS: ALANINE AMINOTRANSFERASE 37 U/L (12-78); ALBUMIN 1.2 G/DL (3.4-5.0); ALBUMIN/GLOBULIN RATIO 0.3 (1.0-2.7); ALKALINE PHOSPHATASE 76 U/L (46-116); ANION GAP 7 mmol/L (5-15); ASPARTATE AMINO TRANSFERASE 21 U/L (15-37); BILIRUBIN,TOTAL 0.5 MG/DL (0.2-1.0); BLOOD UREA NITROGEN 14 mg/dL (7-18); CALCIUM 7.1 MG/DL (8.5-10.1); CARBON DIOXIDE 25 MMOL/L (21-32); CHLORIDE 109 MMOL/L (98-107); CREATININE 0.5 MG/DL (0.55-1.30); POTASSIUM 3.6 MMOL/L (3.5-5.1); SODIUM 141 MMOL/L (136-145)
--- NOTE | 2020-07-21 06:18 | General Progress Note ---
Subjective Allergies: Coded Allergies: No Known Allergies (Unverified , 10/16/18) Objective Last 24 Hour Vital Signs Date Time Temp Pulse Resp B/P (MAP) Pulse Ox O2 Delivery O2 Flow Rate FiO2 07/21/20 04:00 45 07/21/20 04:00 Mechanical Ventilator Mechanical Ventilator Mechanical Ventilator 07/21/20 04:00 97.7 97 20 125/55 (78) 99 07/21/20 03:28 53 07/21/20 03:14 50 20 45 07/21/20 00:00 Mechanical Ventilator Mechanical Ventilator Mechanical Ventilator 07/21/20 00:00 98.1 60 20 137/51 (79) 99 07/21/20 00:00 45 07/20/20 23:32 67 07/20/20 23:10 51 20 45 07/20/20 20:00 45 07/20/20 20:00 97.9 58 21 109/58 (75) 99 07/20/20 20:00 Mechanical Ventilator Mechanical Ventilator Mechanical Ventilator 07/20/20 20:00 58 07/20/20 19:06 58 07/20/20 19:04 59 21 45 07/20/20 16:00 48 07/20/20 16:00 98.1 59 20 104/51 (68) 99 07/20/20 16:00 Mechanical Ventilator Mechanical Ventilator Mechanical Ventilator 07/20/20 16:00 45 07/20/20 14:31 65 20 45 07/20/20 12:00 45 07/20/20 12:00 Mechanical Ventilator Mechanical Ventilator Mechanical Ventilator 07/20/20 12:00 98.4 60 22 105/60 (75) 95 07/20/20 12:00 57 07/20/20 10:40 62 20 45 07/20/20 08:20 65 20 45 07/20/20 08:00 97.9 54 21 114/58 (76) 99 07/20/20 08:00 Mechanical Ventilator Mechanical Ventilator Mechanical Ventilator 07/20/20 08:00 45 07/20/20 08:00 58 Intake and Output 07/20/20 07/21/20 19:00 07:00 Intake Total 1309.2 ml 1200 ml Output Total 750 ml Balance 559.2 ml 1200 ml Free Water 140 ml 100 ml IV Total 569.2 ml 550 ml Tube Feeding 600 ml 550 ml Output Urine Total 750 ml Laboratory Tests 07/20/20 07:30: Arterial Blood pH 7.444, Arterial Blood Partial Pressure CO2 36.4, Arterial Blood Partial Pressure O2 84.7, Arterial Blood HCO3 24.4, Arterial Blood Oxygen Saturation 96.1, Arterial Blood Base Excess 0.4, Jonathan Test Positive 07/20/20 12:18: POC Whole Blood Glucose 91 07/20/20 18:18: POC Whole Blood Glucose 113H 07/20/20 22:20: POC Whole Blood Glucose [Pending] 07/21/20 00:37: POC Whole Blood Glucose 111H 07/21/20 04:30: White Blood Count 8.6, Red Blood Count 2.33L, Hemoglobin 7.4L, Hematocrit 22.0L, Mean Corpuscular Volume 94, Mean Corpuscular Hemoglobin 31.8H, Mean Corpuscular Hemoglobin Concent 33.7, Red Cell Distribution Width 17.6H, Platelet Count 79L, Mean Platelet Volume 9.9, Neutrophils (%) (Auto) , Lymphocytes (%) (Auto) , Monocytes (%) (Auto) , Eosinophils (%) (Auto) , Basophils (%) (Auto) , Neutrophils % (Manual) [Pending], Lymphocytes % (Manual) [Pending], Platelet Estimate [Pending], Platelet Morphology [Pending], Sodium Level 141, Potassium Level 3.6, Chloride Level 109H, Carbon Dioxide Level 25, Anion Gap 7, Blood Urea Nitrogen 14, Creatinine 0.5L, Estimat Glomerular Filtration Rate > 60, Glucose Level 141H, Calcium Level 7.1L, Phosphorus Level 2.6, Magnesium Level 1.5L, Total Bilirubin 0.5, Aspartate Amino Transf (AST/SGOT) 21, Alanine Aminotransferase (ALT/SGPT) 37, Alkaline Phosphatase 76, Total Protein 5.0L, Albumin 1.2L, Globulin 3.8, Albumin/Globulin Ratio 0.3L Height (Feet): 5 Height (Inches): 3.00 Weight (Pounds): 173 General Appearance: no apparent distress EENT: normal ENT inspection Neck: supple Respiratory/Chest: decreased breath sounds Abdomen: hypoactive bowel sounds Extremities: non-tender Assessment/Plan Status: stable, unchanged Assessment/Plan: 1. History of Down syndrome. 2. Dysphagia with G-tube. 3. Seizure disorder. 4. Hypothyroidism. 5. LEANN. 6. Pneumonia. 7. Sepsis. fu H&H prn blood transfusion to keep HGB above 7 ppi GTF hold GI procedures for now Nehemiah Perez MD Jul 21, 2020 06:18
--- NOTE | 2020-07-21 07:09 | NUR ---
NURSE HAND-OFF REPORT: Important Events on Shift: n/a Patient Status: stable Diet: Vital AF Pending Orders: N Pending Results/Labs: CXR Pending MD notification: N Latest Vital Signs: Temperature 97.7 , Pulse 97 , B/P 125 /55 , Respiratory Rate 20 , O2 SAT 99 , Mechanical Ventilator, O2 Flow Rate 15.0 . Vital Sign Comment: Blair EKG Rhythm: Sinus Bradycardia Rhythm change?: N MD Notified?: Y -Dr Arlin PRAKASH Response: No New Orders Received Latest Osorio Fall Score: 70 Fall Risk: High Risk Safety Measures: Call light Within Reach, Bed Alarm Zone 1, Side Rails Side Rails x3, Bed position Low and Locked. Fall Precautions: Yellow Socks Report given to TAI Mullen.
--- NOTE | 2020-07-21 07:10 | NUR ---
NURSE NOTES: Received patient from Sugey LUJAN. Patient is awake, alert and oriented x1-x2. Sinus Bradycardia on the heart monitor, HR 48. Receiving oxygen via trach to vent, vent settings: AC 20, TV 500, FiO2 70% PEEP 0. IV site is Left upper arm PICC receiving 1/2 NS at 50cc/hr. G-tube is intact and receiving Vital AF at 50cc/hr. Gregorio catheter is intact and draining. Gregorio catheter is intact and draining. Bed is locked, placed in lowest position, side rails up x3, bed alarm on, head of bed elevated. Will continue to monitor.
[2020-07-21 08:00] VITALS: BP 118/74
[2020-07-21] MEDS ORDERED: Magnesium Sulfate 2ml Inj IV ONE (09:00)
[2020-07-21] MEDS: Levemir Flexpen SUBQ SCH ×2 (09:00→20:38)
[2020-07-21] MEDS: Pantoprazole Inj IVP SCH ×2 (09:07→20:27)
[2020-07-21] MEDS: Magnesium Sulfate 1gm/100ml IVPB SCH ×2 (09:07→10:09)
[2020-07-21] MEDS: Hydrocortisone 100mg Inj IV SCH ×2 (10:10→20:27)
--- NOTE | 2020-07-21 10:18 | NUR ---
NURSE HAND-OFF REPORT: Important Events on Shift: Patient Status: Diet: Vital AF at 50cc/hr Pending Orders: Pending Results/Labs: Pending MD notification: Latest Vital Signs: Temperature 98.4 , Pulse 48 , B/P 118 /74 , Respiratory Rate 21 , O2 SAT 100 , Mechanical Ventilator, O2 Flow Rate 15.0 . Vital Sign Comment: vital signs stable EKG Rhythm: Sinus Bradycardia Rhythm change?: N MD Notified?: N MD Response: N Latest Osorio Fall Score: 70 Fall Risk: High Risk Safety Measures: Call light Within Reach, Bed Alarm Zone 1, Side Rails Side Rails x3, Bed position Low and Locked. Fall Precautions: Yellow Socks Report given to Charge Nurse Pamella LUJAN.
--- NOTE | 2020-07-21 10:30 | NUR ---
NURSE NOTES: Received patient awake not in any acute cardio respiratory distress connected to vent with setting well tolerated. Hob eleveted. Suction secretion prn. Head to toe assessment done. Complete bath provided. Kept clean and dry.
--- NOTE | 2020-07-21 11:04 | Surgery Progress Note ---
Surgery Progress Note Subjective Procedure Performed removal left chest tube Additional Comments thoravent out stable since cxr noted labs stable Objective Last 24 Hour Vital Signs Date Time Temp Pulse Resp B/P (MAP) Pulse Ox O2 Delivery O2 Flow Rate FiO2 07/21/20 08:00 Mechanical Ventilator Mechanical Ventilator Mechanical Ventilator 07/21/20 08:00 98.4 48 21 118/74 (89) 100 07/21/20 08:00 45 07/21/20 08:00 45 07/21/20 07:02 52 20 45 07/21/20 04:00 45 07/21/20 04:00 Mechanical Ventilator Mechanical Ventilator Mechanical Ventilator 07/21/20 04:00 97.7 97 20 125/55 (78) 99 07/21/20 03:28 53 07/21/20 03:14 50 20 45 07/21/20 00:00 Mechanical Ventilator Mechanical Ventilator Mechanical Ventilator 07/21/20 00:00 98.1 60 20 137/51 (79) 99 07/21/20 00:00 45 07/20/20 23:32 67 07/20/20 23:10 51 20 45 07/20/20 20:00 45 07/20/20 20:00 97.9 58 21 109/58 (75) 99 07/20/20 20:00 Mechanical Ventilator Mechanical Ventilator Mechanical Ventilator 07/20/20 20:00 58 07/20/20 19:06 58 07/20/20 19:04 59 21 45 07/20/20 16:00 48 07/20/20 16:00 98.1 59 20 104/51 (68) 99 07/20/20 16:00 Mechanical Ventilator Mechanical Ventilator Mechanical Ventilator 07/20/20 16:00 45 07/20/20 14:31 65 20 45 07/20/20 12:00 45 07/20/20 12:00 Mechanical Ventilator Mechanical Ventilator Mechanical Ventilator 07/20/20 12:00 98.4 60 22 105/60 (75) 95 07/20/20 12:00 57 I&O Intake and Output 07/20/20 07/21/20 19:00 07:00 Intake Total 1309.2 ml 1250 ml Output Total 750 ml Balance 559.2 ml 1250 ml Free Water 140 ml 100 ml IV Total 569.2 ml 600 ml Tube Feeding 600 ml 550 ml Output Urine Total 750 ml Dressing: saturated Cardiovascular: RSR Respiratory: decreased breath sounds Abdomen: soft, non-tender, present bowel sounds Extremities: no tenderness, no cyanosis Laboratory Tests Test 07/20/20 12:18 07/20/20 18:18 07/20/20 22:20 07/21/20 00:37 POC Whole Blood Glucose 91 MG/DL (74-106) 113 MG/DL (74-106) H Pending 111 MG/DL (74-106) H Test 07/21/20 04:30 White Blood Count 8.6 K/UL (4.8-10.8) Red Blood Count 2.33 M/UL (4.20-5.40) L Hemoglobin 7.4 G/DL (12.0-16.0) L Hematocrit 22.0 % (37.0-47.0) L Mean Corpuscular Volume 94 FL (80-99) Mean Corpuscular Hemoglobin 31.8 PG (27.0-31.0) H Mean Corpuscular Hemoglobin Concent 33.7 G/DL (32.0-36.0) Red Cell Distribution Width 17.6 % (11.6-14.8) H Platelet Count 79 K/UL (150-450) L Mean Platelet Volume 9.9 FL (6.5-10.1) Neutrophils (%) (Auto) % (45.0-75.0) Lymphocytes (%) (Auto) % (20.0-45.0) Monocytes (%) (Auto) % (1.0-10.0) Eosinophils (%) (Auto) % (0.0-3.0) Basophils (%) (Auto) % (0.0-2.0) Differential Total Cells Counted 100 Neutrophils % (Manual) 69 % (45-75) Lymphocytes % (Manual) 23 % (20-45) Monocytes % (Manual) 5 % (1-10) Eosinophils % (Manual) 0 % (0-3) Basophils % (Manual) 0 % (0-2) Band Neutrophils 3 % (0-8) Platelet Estimate Decreased L Platelet Morphology Normal Anisocytosis 2+ Sodium Level 141 MMOL/L (136-145) Potassium Level 3.6 MMOL/L (3.5-5.1) Chloride Level 109 MMOL/L (98-107) H Carbon Dioxide Level 25 MMOL/L (21-32) Anion Gap 7 mmol/L (5-15) Blood Urea Nitrogen 14 mg/dL (7-18) Creatinine 0.5 MG/DL (0.55-1.30) L Estimat Glomerular Filtration Rate > 60 mL/min (>60) Glucose Level 141 MG/DL (74-106) H Calcium Level 7.1 MG/DL (8.5-10.1) L Phosphorus Level 2.6 MG/DL (2.5-4.9) Magnesium Level 1.5 MG/DL (1.8-2.4) L Total Bilirubin 0.5 MG/DL (0.2-1.0) Aspartate Amino Transf (AST/SGOT) 21 U/L (15-37) Alanine Aminotransferase (ALT/SGPT) 37 U/L (12-78) Alkaline Phosphatase 76 U/L (46-116) Total Protein 5.0 G/DL (6.4-8.2) L Albumin 1.2 G/DL (3.4-5.0) L Globulin 3.8 g/dL Albumin/Globulin Ratio 0.3 (1.0-2.7) L Plan Problems: (1) Respiratory distress Assessment & Plan: Respiratory insufficiency requiring prolonged ventilator support. Patient on minimal vent settings right now currently in stable but unfortunately not safe for extubation. Tracheostomy is indicated recommended. I discussed case with pulmonology team ICU team medical teams. Patient unable to make decisions and her current condition and given her history. The care team has been contacted and will be reviewed for evaluation and consideration of the tracheostomy. If consented I think it is reasonable for tracheostomy given patient's current CODE STATUS care plan and goals of care. Extubation his current status is potentially high risk for reintubation emergency complication. We will plan for tracheostomy if consent is obtained. Thank you for let me participate patient's care will follow with recommendations will plan for trach when ready wean fi02 s/p trach 10?8 (2) Encephalopathy chronic (3) Dysphagia (4) Down's syndrome (5) Sepsis (6) Acute respiratory failure (7) Pneumonia (8) Trisomy 21, Down syndrome (9) LEANN (acute kidney injury) (10) Bacteremia (11) Hypokalemia (12) Anemia (13) Diarrhea (14) Hypernatremia (15) Pneumothorax (16) Pneumothorax, right Assessment & Plan: right ptx. s/p chest tube tube removed 07/11 left ptx tube placed 07/[address] to water seal chest tube removed 07/20 (17) Cardiac arrest (18) ARDS (adult respiratory distress syndrome) (19) Septic shock (20) HCAP (healthcare-associated pneumonia) (21) Respiratory failure requiring intubation (22) Seizure disorder (23) Hypothyroidism Mark Gordon Jul 21, 2020 11:04
--- NOTE | 2020-07-21 11:16 | NUR ---
*-*DISCHARGE PLANNING*-* PATIENT HAS BEEN REFERRED BACK TO: [facility] P: [phone] S/W TENZIN, WILL CALL BACK WITH ROOM NUMBER
--- NOTE | 2020-07-21 11:58 | Diagnostic Imaging Report ---
Indication: Dyspnea Technique: One view of the chest Comparison: 07/20/2020 Findings: Interim removal of previously demonstrated left chest vent catheter. No pneumothorax. Bilateral diffuse parenchymal infiltrates are unchanged. Tracheostomy, left arm PICC remain. Impression: Interim vent catheter removal from the left chest. No pneumothorax. Otherwise unchanged
[2020-07-21 12:00] VITALS: BP 114/63
--- NOTE | 2020-07-21 12:27 | Pulmonolgy Critical Care Note ---
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, 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, renal, ID Discussed with: nurses, consultants, 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 - Objective Last 24 Hour Vital Signs Date Time Temp Pulse Resp B/P (MAP) Pulse Ox O2 Delivery O2 Flow Rate FiO2 07/21/20 12:00 47 07/21/20 10:53 54 20 45 07/21/20 08:00 Mechanical Ventilator Mechanical Ventilator Mechanical Ventilator 07/21/20 08:00 98.4 48 21 118/74 (89) 100 07/21/20 08:00 45 07/21/20 08:00 45 07/21/20 07:02 52 20 45 07/21/20 04:00 45 07/21/20 04:00 Mechanical Ventilator Mechanical Ventilator Mechanical Ventilator 07/21/20 04:00 97.7 97 20 125/55 (78) 99 07/21/20 03:28 53 07/21/20 03:14 50 20 45 07/21/20 00:00 Mechanical Ventilator Mechanical Ventilator Mechanical Ventilator 07/21/20 00:00 98.1 60 20 137/51 (79) 99 07/21/20 00:00 45 07/20/20 23:32 67 07/20/20 23:10 51 20 45 07/20/20 20:00 45 07/20/20 20:00 97.9 58 21 109/58 (75) 99 07/20/20 20:00 Mechanical Ventilator Mechanical Ventilator Mechanical Ventilator 07/20/20 20:00 58 07/20/20 19:06 58 07/20/20 19:04 59 21 45 07/20/20 16:00 48 07/20/20 16:00 98.1 59 20 104/51 (68) 99 07/20/20 16:00 Mechanical Ventilator Mechanical Ventilator Mechanical Ventilator 07/20/20 16:00 45 07/20/20 14:31 65 20 45 Status: sedated, somnolent Condition: critical HEENT: atraumatic, normocephalic Neck: full ROM Lungs: clear, chest wall tender Heart: HR/BP stable Abdomen: soft Extremities: no C/C/E Accucheck: 89 Critical Care - Subjective ROS Limited/Unobtainable: Yes Interval Events: looks comfortable Condition: critical, improving FI02: 45 Vent Support Breath Rate: 20 Vent Support Mode: AC Vent Tidal Volume: 500 Sputum Amount: Moderate PEEP: 0.0 PIP: 28 Tube Feeding Amount: 50 I&O: Intake and Output 07/20/20 07/21/20 19:00 07:00 Intake Total 1309.2 ml 1250 ml Output Total 750 ml Balance 559.2 ml 1250 ml Free Water 140 ml 100 ml IV Total 569.2 ml 600 ml Tube Feeding 600 ml 550 ml Output Urine Total 750 ml CXR: extensive interstitial infiltrate. ET-Tube: 7.5 ET Position: 23 Labs: Laboratory Tests Test 07/20/20 18:18 07/20/20 22:20 07/21/20 00:37 07/21/20 04:30 POC Whole Blood Glucose 113 MG/DL (74-106) H Pending 111 MG/DL (74-106) H White Blood Count 8.6 K/UL (4.8-10.8) Red Blood Count 2.33 M/UL (4.20-5.40) L Hemoglobin 7.4 G/DL (12.0-16.0) L Hematocrit 22.0 % (37.0-47.0) L Mean Corpuscular Volume 94 FL (80-99) Mean Corpuscular Hemoglobin 31.8 PG (27.0-31.0) H Mean Corpuscular Hemoglobin Concent 33.7 G/DL (32.0-36.0) Red Cell Distribution Width 17.6 % (11.6-14.8) H Platelet Count 79 K/UL (150-450) L Mean Platelet Volume 9.9 FL (6.5-10.1) Neutrophils (%) (Auto) % (45.0-75.0) Lymphocytes (%) (Auto) % (20.0-45.0) Monocytes (%) (Auto) % (1.0-10.0) Eosinophils (%) (Auto) % (0.0-3.0) Basophils (%) (Auto) % (0.0-2.0) Differential Total Cells Counted 100 Neutrophils % (Manual) 69 % (45-75) Lymphocytes % (Manual) 23 % (20-45) Monocytes % (Manual) 5 % (1-10) Eosinophils % (Manual) 0 % (0-3) Basophils % (Manual) 0 % (0-2) Band Neutrophils 3 % (0-8) Platelet Estimate Decreased L Platelet Morphology Normal Anisocytosis 2+ Sodium Level 141 MMOL/L (136-145) Potassium Level 3.6 MMOL/L (3.5-5.1) Chloride Level 109 MMOL/L (98-107) H Carbon Dioxide Level 25 MMOL/L (21-32) Anion Gap 7 mmol/L (5-15) Blood Urea Nitrogen 14 mg/dL (7-18) Creatinine 0.5 MG/DL (0.55-1.30) L Estimat Glomerular Filtration Rate > 60 mL/min (>60) Glucose Level 141 MG/DL (74-106) H Calcium Level 7.1 MG/DL (8.5-10.1) L Phosphorus Level 2.6 MG/DL (2.5-4.9) Magnesium Level 1.5 MG/DL (1.8-2.4) L Total Bilirubin 0.5 MG/DL (0.2-1.0) Aspartate Amino Transf (AST/SGOT) 21 U/L (15-37) Alanine Aminotransferase (ALT/SGPT) 37 U/L (12-78) Alkaline Phosphatase 76 U/L (46-116) Total Protein 5.0 G/DL (6.4-8.2) L Albumin 1.2 G/DL (3.4-5.0) L Globulin 3.8 g/dL Albumin/Globulin Ratio 0.3 (1.0-2.7) L Test 07/21/20 11:04 POC Whole Blood Glucose 89 MG/DL (74-106) Elayne Allred MD Jul 21, 2020 12:27
--- NOTE | 2020-07-21 13:03 | Infectious Diseases Prog Note ---
Assessment/Plan ASSESSMENT: sp code blue 06/03 Septic Shock; SP Fever, recurrent- low grade -SP Leukocytosis; recurrent; SP 10/5 u/a -, nit neg, leuk +2; ucx PsA (I Genta); colonizer sp cx P, mirabilsi (R levo); colonzier -06/27 Bcx Neg -06/17 u/a no pyuria -06/16 Bcx Neg(Picc line) -06/14 Bcx Neg ucx Neg sp cx C. parapsilopsis -06/03 u/a no pyuria Pneumonia.- COVID 19 neg x3 Acute hypoxic resp failure on VM> NRB 15l 100%; hypoxic on ABG> now VDRF 06/03- Fio2 80% >100% 06/05> 60% 06/09 >80% 06/10 >95% 06/18 >90% 06/22 >60% 06/23 R tension Pneumothroax sp CT 06/29 07/17 sp trach 07/17 CXR: Diffuse airspace opacities. 07/16 CXR: bilateral infiltrates are all unchanged. 07/13 CXR: Extensive bilateral airspace opacities, right greater than left, consistent with multifocal infiltrate worse pulmonary edema. This is similar in appearance to the prior study. Worsening, small left pleural effusion. This may be secondary to redistribution as the right-sided pleural effusion has mildly improved. -06/30 CXR: Interim complete reexpansion of right lung without evidence of residual pneumothorax. Bilateral diffuse and extensive infiltrates. Markedly improved chest wall subcutaneous emphysema -06/29 CXR: Interim reexpansion of previously demonstrated right pneumothorax, status post large bore chest tube placement. -06/22 CXR: Improved aeration of both lungs. -06/13 CXR:Small bilateral pleural effusions with minor edema. Stable edema with mild worsening in the degree of pleural effusion on the right. -06/09 sp cx Neg 06/08 CXR: Extensive bilateral interstitial and airspace disease appears similar to the prior exam. Moderate to large bilateral pleural effusions appear unchanged. 06/05 CXR: Increasing left upper lobe dense consolidation and likely increasing bilateral pleural fluid. Persistent diffuse dense consolidation elsewhere -06/03 sp cx normal resp marie -06/02 CXR: Increased atelectasis of the right lung, since prior exam of 3 days earlier. New or increased right pleural effusion. Increased left basilar consolidation and/or pleural fluid -COVID Rapid PCR neg 05/31, 05/31, 06/03 -05/30 spc x Group G strep -05/30 CXR: Reduced lung volumes. Patchy bilateral predominantly interstitial pulmonary opacities. Could be from edema and/or pneumonia. There is a broader differential. -legionella ag urine, blasto ab, Histo ab, HIV ab screen, FRANCIS, ANCA neg Persistent, high grade bacteremia- -05/30 Bcx 4/4 sets S. haemolyticus; 05/31 Bcx 3/4 S/ epi; 06/04 Bcx 1.4 S. warnerri; 06/06 Bcx Neg -2d echo: no vegetaions seen ua/ wbc 10-15, nit neg, leuk +1; ucx Neg LEANN; -supratherapeutic vanco levels -Seizure disorder. - Hypothyroidism. - Down syndrome. History of PEG tube placement. [place] resident PLAN: Monitor off abx unless febrile, increasing WBC and/or HD unstable 06/22 SP Meropenem #18, IV Amikacin #7 06/12/20 SP Daptomycin #11 06/10 SP MIcafungin #7, Linezolid #5 06/05 SP Azithromycin #7/7 06/03 SP Ceftriaxone #2 06/02 SP IV Vancomycin #4, Zosyn #4 05/30 SP Cefepime x1, Flagyl x1 - Monitor CBC, BMP. .f/u cx - COVID neg x3 - Monitor chest x-ray. -PEG/Trach care -aspiration precautions Thank you, Dr. Allred, for allowing me to participate in the care of this patient. I will follow the patient with you at this hospitalization. Discussed with RN Subjective Allergies: Coded Allergies: No Known Allergies (Unverified , 10/16/18) afebrile no leukocytosis discharge planning Objective Last 24 Hour Vital Signs Date Time Temp Pulse Resp B/P (MAP) Pulse Ox O2 Delivery O2 Flow Rate FiO2 07/21/20 12:00 47 07/21/20 10:53 54 20 45 07/21/20 08:00 Mechanical Ventilator Mechanical Ventilator Mechanical Ventilator 07/21/20 08:00 98.4 48 21 118/74 (89) 100 07/21/20 08:00 45 07/21/20 08:00 45 07/21/20 07:02 52 20 45 07/21/20 04:00 45 07/21/20 04:00 Mechanical Ventilator Mechanical Ventilator Mechanical Ventilator 07/21/20 04:00 97.7 97 20 125/55 (78) 99 07/21/20 03:28 53 07/21/20 03:14 50 20 45 07/21/20 00:00 Mechanical Ventilator Mechanical Ventilator Mechanical Ventilator 07/21/20 00:00 98.1 60 20 137/51 (79) 99 07/21/20 00:00 45 07/20/20 23:32 67 07/20/20 23:10 51 20 45 07/20/20 20:00 45 07/20/20 20:00 97.9 58 21 109/58 (75) 99 07/20/20 20:00 Mechanical Ventilator Mechanical Ventilator Mechanical Ventilator 07/20/20 20:00 58 07/20/20 19:06 58 07/20/20 19:04 59 21 45 07/20/20 16:00 48 07/20/20 16:00 98.1 59 20 104/51 (68) 99 07/20/20 16:00 Mechanical Ventilator Mechanical Ventilator Mechanical Ventilator 07/20/20 16:00 45 07/20/20 14:31 65 20 45 Height (Feet): 5 Height (Inches): 3.00 Weight (Pounds): 173 HEENT: . trach in place CHEST: Coarse breathing sounds. HEART: S1 and S2. ABDOMEN: Soft. PEG tube in place. SKIN: no rash Laboratory Tests Test 07/20/20 18:18 07/20/20 22:20 07/21/20 00:37 07/21/20 04:30 POC Whole Blood Glucose 113 MG/DL (74-106) H Pending 111 MG/DL (74-106) H White Blood Count 8.6 K/UL (4.8-10.8) Red Blood Count 2.33 M/UL (4.20-5.40) L Hemoglobin 7.4 G/DL (12.0-16.0) L Hematocrit 22.0 % (37.0-47.0) L Mean Corpuscular Volume 94 FL (80-99) Mean Corpuscular Hemoglobin 31.8 PG (27.0-31.0) H Mean Corpuscular Hemoglobin Concent 33.7 G/DL (32.0-36.0) Red Cell Distribution Width 17.6 % (11.6-14.8) H Platelet Count 79 K/UL (150-450) L Mean Platelet Volume 9.9 FL (6.5-10.1) Neutrophils (%) (Auto) % (45.0-75.0) Lymphocytes (%) (Auto) % (20.0-45.0) Monocytes (%) (Auto) % (1.0-10.0) Eosinophils (%) (Auto) % (0.0-3.0) Basophils (%) (Auto) % (0.0-2.0) Differential Total Cells Counted 100 Neutrophils % (Manual) 69 % (45-75) Lymphocytes % (Manual) 23 % (20-45) Monocytes % (Manual) 5 % (1-10) Eosinophils % (Manual) 0 % (0-3) Basophils % (Manual) 0 % (0-2) Band Neutrophils 3 % (0-8) Platelet Estimate Decreased L Platelet Morphology Normal Anisocytosis 2+ Sodium Level 141 MMOL/L (136-145) Potassium Level 3.6 MMOL/L (3.5-5.1) Chloride Level 109 MMOL/L (98-107) H Carbon Dioxide Level 25 MMOL/L (21-32) Anion Gap 7 mmol/L (5-15) Blood Urea Nitrogen 14 mg/dL (7-18) Creatinine 0.5 MG/DL (0.55-1.30) L Estimat Glomerular Filtration Rate > 60 mL/min (>60) Glucose Level 141 MG/DL (74-106) H Calcium Level 7.1 MG/DL (8.5-10.1) L Phosphorus Level 2.6 MG/DL (2.5-4.9) Magnesium Level 1.5 MG/DL (1.8-2.4) L Total Bilirubin 0.5 MG/DL (0.2-1.0) Aspartate Amino Transf (AST/SGOT) 21 U/L (15-37) Alanine Aminotransferase (ALT/SGPT) 37 U/L (12-78) Alkaline Phosphatase 76 U/L (46-116) Total Protein 5.0 G/DL (6.4-8.2) L Albumin 1.2 G/DL (3.4-5.0) L Globulin 3.8 g/dL Albumin/Globulin Ratio 0.3 (1.0-2.7) L Test 07/21/20 11:04 POC Whole Blood Glucose 89 MG/DL (74-106) Current Medications Medications (Trade) Dose Ordered Sig/Katy Route PRN Reason Start Time Stop Time Status Last Admin Dose Admin Acetaminophen (Tylenol) 650 mg Q4H PRN GT For Pain 07/01/20 17:15 07/31/20 17:14 07/10/20 17:46 Chlorhexidine Gluconate (Alla-Hex 2%) 1 applic DAILY@2000 TOPIC 06/08/20 20:00 09/06/20 19:59 07/20/20 20:26 Clotrimazole (Lotrimin) 1 applic Q12HR TOPIC 06/07/20 13:00 09/05/20 12:59 07/21/20 09:07 Dextrose (Dextrose 50%) 25 ml Q30M PRN IV Hypoglycemia 06/03/20 11:30 08/28/20 11:29 Dextrose (Dextrose 50%) 50 ml Q30M PRN IV Hypoglycemia 06/03/20 11:30 08/28/20 11:29 Hydrocortisone (Solu-CORTEF) 25 mg Q12H IV 07/17/20 22:00 10/15/20 21:59 07/21/20 10:10 Insulin Aspart (NovoLOG) Q6HR SUBQ 06/26/20 12:00 09/24/20 11:59 07/20/20 05:53 Insulin Detemir (Levemir) 10 units Q12HR SUBQ 06/26/20 10:00 09/24/20 09:59 07/20/20 22:24 Levothyroxine Sodium (Synthroid) 75 mcg DAILY@0630 GT 07/08/20 06:30 08/07/20 06:29 07/21/20 05:26 Loperamide HCl (Imodium) 2 mg Q6H PRN NG Diarrhea 06/24/20 10:30 07/24/20 10:29 07/01/20 11:41 Magnesium Sulfate 100 ml @ 100 mls/hr Q1H IVPB 07/21/20 11:15 07/21/20 13:14 07/21/20 12:12 Pantoprazole (Protonix) 40 mg EVERY 12 HOURS IVP 07/06/20 21:00 08/05/20 20:59 07/21/20 09:07 Potassium Chloride (K-Dur) 40 meq EVERY 12 HOURS GT 07/04/20 21:00 09/26/20 12:14 07/21/20 09:08 Suki Camejo M.D. Jul 21, 2020 13:03
--- NOTE | 2020-07-21 13:34 | NUR ---
RADIOLOGY DEPT., CHEST X-RAY DONE.-P.DYE
--- NOTE | 2020-07-21 13:38 | NUR ---
WAITER/WAITRESS FIRST CLASS NOTE SW faxed the clinicals to [facility] [phone] as per request.
--- NOTE | 2020-07-21 14:45 | Nephrology Progress Note ---
Assessment/Plan Problem List: (1) LEANN (acute kidney injury) (2) Respiratory failure requiring intubation (3) Down's syndrome (4) Seizure disorder (5) Hypothyroidism Assessment Acute renal failure, likely due to hypotension Acute respiratory distress, hypoxia Seizure disorder Hypothyroidism Down syndrome Full code Fluid challenge with IV fluids and albumin Midodrine for BP above 100 systolic Check TSH level Check Correct level Monitor renal parameters Urine studies Per orders Plan July 21: Labs reviewed. Magnesium supplement given. Hemoglobin 7.4. Defer transfusion to PMD. Continue to monitor electrolytes and renal parameters July 20: Due discontinuation of chest tube today. Trach to vent. Renal parameters stable. July 19: Trach to vent. Left chest tube to drain. Full code. Labs reviewe d. Renal parameters stable. July 18: Trached and vent. Still has left chest tube to drain. No chemistry panel today. Continue per consultants. Patient full code. July 17: Patient now has trach connected to vent. Left chest tube remains in place. Patient full code. Continue per consultants. Labs reviewed. July 16: Discussed with RN. Remains on ventilator. Labs reviewed. Stable from renal standpoint of view. Patient due for tracheostomy when clinically stable. July 15: On ventilator. Left chest tube remains. Full code. Labs reviewed. Electrolyte abnormalities addressed. Continue per consultants. July 14: On ventilator. Tracheostomy postponed because patient is clinically unstable. Still have left chest tube draining. Labs reviewed. Electrolyte abnormalities addressed. Continue per consultants. July 13: Remains intubated on ventilator. Discussed with RN. Unclear if the patient is due for tracheostomy today or not. Apparently the patient was reintubated again yesterday. Patient has left chest tube. Electrolyte abnormalities addressed. July 12: Remains intubated on ventilator. Due for tracheostomy tomorrow. Left chest tube present. Patient is full code. Labs reviewed. Continue as is. July 11: Remains intubated on ventilator. Due for tracheostomy July 13. Has left-sided chest tube. Stable from renal standpoint to view. Continue per consultants. July 10: Remains intubated on ventilator. Electrolyte abnormalities addressed. Supplements ordered. July 09: Intubated on ventilator. Labs reviewed. Potassium supplement given. Remains bradycardic. Continue per consultants. July 08: Labs reviewed. Electrolyte abnormalities addressed. Heart rate remains bradycardic. Continue per cardiology. Continue to monitor renal parameters and electrolytes. July 07: Labs reviewed. Electrolyte abnormalities addressed and replaced. Medication list reviewed. Heart rate remains mid 50s. Continue as is. July 06: On ventilator. Full code. Heart rate low. Will discontinue Midodrin. Continue to rest. Electrolytes within normal limit. Discussed with RN. July 05: Remains intubated. Full code. No plan for tracheostomy yet. Labs reviewed. All acceptable. Continue same management July 04: Labs reviewed. Discussed with RN. Potassium and phosphorus and magnesium replacement ordered. Hemoglobin 9.5. Patient remains full code. Continue per consultants. July 03: Lab reviewed. Renal parameters stable. Full code. Intubated. Electrolyte abnormalities addressed and replacement done. July 02: Lab reviewed. Renal parameters stable. Full code. Intubated. Has right side chest tube. Continue per consultants. July 01: Lab reviewed. Renal parameters stable. Full code. Has right chest tube. Planning process for tracheostomy. Defer to chest and general surgeon. June 30: Labs reviewed. Renal parameters stable. Remains full code. Remains on ventilator. Due for tracheostomy tomorrow. Continue per consultants. Patient has a right chest tube in place at this time. June 29: Labs reviewed. Electrolyte imbalances addressed and supplemented. Remains full code and on ventilator. Continue to monitor renal parameters. Continue per consultants. June 28: Labs reviewed. Serum potassium again low today. Potassium supplement IV and through GT given. Patient remains full code and is on ventilator. Continue per consultants. Continue to monitor electrolytes and renal parameters. June 27: Labs reviewed. Abnormal electrolyte addressed. Remains full code. Remains vented. June 26: Day 27 of hospitalization. Full code. Labs reviewed. Hemoglobin down to 7.5. Electrolyte abnormalities addressed and corrections ordered. Continue to monitor renal parameters. Continue per consultants. Start on Levemir for blood sugar management. Questioning continuation of hydrocortisone? June 25: Labs reviewed. Potassium, phosphorus, hemoglobin, are all low. Potassium and phosphorus IV replacement given. Continue to monitor electrolytes and CBC. Patient remains full code. June 24: Lab reviewed. Low phosphorus low magnesium and low potassium was addressed. Hemoglobin drifting lower. Continue per consultants. Patient remains full code. June 23: Labs reviewed. Patient continues to be on ventilator. D5W for high sodium and also potassium chloride intravenously as supplement given. Hemoglobin 8.4. Continue to monitor electrolytes and renal parameters. June 22: Labs reviewed. Low potassium and high sodium noted. Hemoglobin 8.1 stable. Aim to correct abnormal electrolyte. Continue rest. Will give 2 boluses of D5W 500 cc. June 21: Lab reviewed. Abnormal electrolytes noted and addressed. June 20: Labs reviewed. Potassium supplement given. Patient remains full code. Continue per consultants. June 19: Lab reviewed. Electrolyte abnormalities addressed. Continue per pulmonary and ID. June 18: Lab reviewed. Status unchanged. Serum sodium 151 unchanged. Stable from renal standpoint of view. June 17: Labs reviewed. Status quo. D5W 500 cc IV ordered. Continue to monitor renal parameters. June 16: Status quo. Labs reviewed. Overall condition unchanged. Patient was transfused and hemoglobin higher. Continue current management. Patient remains full code. June 15: Status quo. Overall condition poor. Very low albumin. Edematous. Hypotensive. Hemoglobin lower. Anemia work-up ordered. I favor transfusion 2 units of packed RBCs. Patient remains full code. I favor supportive care only. Will discuss. June 14: Electrolyte abnormalities addressed. Serum creatinine lower. Continue per current management. June 13: Status unchanged. Lab reviewed. Serum potassium 2.7. IV potassium chloride ordered. Serum creatinine low at 1.6 stable. Blood pressure 90s systolic June 12: Status quo. Labs reviewed. Renal parameters stable. Serum creati nine down to 1.6. Medication list reviewed. Continues to be on midodrine. Continue per consultants. June 11: Status quo. Labs reviewed. Electrolytes adjusted. Serum creatinine down to 1.8. Continue per consultants. June 10: Status quo. Labs reviewed. Phosphorus supplement IV given. Serum creatinine 2. Continue per consultants. June 09: Requires less pressors. Albumin bolus given. 1 dose of Lasix IV ordered as the patient severely edematous. Patient serum albumin is very low. Continue per consultants. June 08: Continues to be intubated. Labs reviewed. Serum creatinine 1.9 unchanged. Blood pressure more stable. Off 1 of the pressors. Continue to monitor renal parameters. Continue per consultants. Patient now on hydrocortisone 100 mg every 8 hours. Will decrease IV fluid. Normal saline down to 50 cc an hour. June 07: Intubated. Labs reviewed. Creatinine 1.9 unchanged. Continue same treatment plan. Per consultants. Overall poor prognosis since the patient remains on pressors and her pulmonary status is worsening. June 06: Remains intubated. Labs reviewed. Creatinine 1.9. Blood pressure systolic 90s. Continue per consultants. June 05: Remains intubated. Labs reviewed. Serum creatinine lower to 2. Vancomycin level lower. Remains hypotensive on pressors. Will increase midodrine to 10 mg every 8 hours. Continue per consultants. Continue to monitor renal parameters. June 04: Patient now in ICU. Intubated. On pressors. Labs reviewed. Will increase midodrine. Aim to keep blood pressure over 100 systolic. Will give albumin bolus. Will check vancomycin level which was elevated when checked previously on June 01. Will monitor renal parameters. Continue per consultants. Subjective ROS Limited/Unobtainable: Yes Objective Objective Last 24 Hour Vital Signs Date Time Temp Pulse Resp B/P (MAP) Pulse Ox O2 Delivery O2 Flow Rate FiO2 07/21/20 12:00 97.9 53 20 114/63 (80) 97 07/21/20 12:00 47 07/21/20 12:00 45 07/21/20 12:00 Mechanical Ventilator Mechanical Ventilator Mechanical Ventilator 07/21/20 10:53 54 20 45 07/21/20 08:00 Mechanical Ventilator Mechanical Ventilator Mechanical Ventilator 07/21/20 08:00 98.4 48 21 118/74 (89) 100 07/21/20 08:00 45 07/21/20 08:00 45 07/21/20 07:02 52 20 45 07/21/20 04:00 45 07/21/20 04:00 Mechanical Ventilator Mechanical Ventilator Mechanical Ventilator 07/21/20 04:00 97.7 97 20 125/55 (78) 99 07/21/20 03:28 53 07/21/20 03:14 50 20 45 07/21/20 00:00 Mechanical Ventilator Mechanical Ventilator Mechanical Ventilator 07/21/20 00:00 98.1 60 20 137/51 (79) 99 07/21/20 00:00 45 07/20/20 23:32 67 07/20/20 23:10 51 20 45 07/20/20 20:00 45 07/20/20 20:00 97.9 58 21 109/58 (75) 99 07/20/20 20:00 Mechanical Ventilator Mechanical Ventilator Mechanical Ventilator 07/20/20 20:00 58 07/20/20 19:06 58 07/20/20 19:04 59 21 45 10/12/20 16:00 48 07/20/20 16:00 98.1 59 20 104/51 (68) 99 07/20/20 16:00 Mechanical Ventilator Mechanical Ventilator Mechanical Ventilator 07/20/20 16:00 45 Intake and Output 07/20/20 07/21/20 19:00 07:00 Intake Total 1309.2 ml 1250 ml Output Total 750 ml Balance 559.2 ml 1250 ml Free Water 140 ml 100 ml IV Total 569.2 ml 600 ml Tube Feeding 600 ml 550 ml Output Urine Total 750 ml Laboratory Tests 07/20/20 18:18: POC Whole Blood Glucose 113H 07/20/20 22:20: POC Whole Blood Glucose [Pending] 07/21/20 00:37: POC Whole Blood Glucose 111H 07/21/20 04:30: White Blood Count 8.6, Red Blood Count 2.33L, Hemoglobin 7.4L, Hematocrit 22.0L, Mean Corpuscular Volume 94, Mean Corpuscular Hemoglobin 31.8H, Mean Corpuscular Hemoglobin Concent 33.7, Red Cell Distribution Width 17.6H, Platelet Count 79L, Mean Platelet Volume 9.9, Neutrophils (%) (Auto) , Lymphocytes (%) (Auto) , Monocytes (%) (Auto) , Eosinophils (%) (Auto) , Basophils (%) (Auto) , Differential Total Cells Counted 100, Neutrophils % (Manual) 69, Lymphocytes % (Manual) 23, Monocytes % (Manual) 5, Eosinophils % (Manual) 0, Basophils % (Manual) 0, Band Neutrophils 3, Platelet Estimate DecreasedL, Platelet Morphology Normal, Anisocytosis 2+, Sodium Level 141, Potassium Level 3.6, Chloride Level 109H, Carbon Dioxide Level 25, Anion Gap 7, Blood Urea Nitrogen 14, Creatinine 0.5L, Estimat Glomerular Filtration Rate > 60, Glucose Level 141H , Calcium Level 7.1L, Phosphorus Level 2.6, Magnesium Level 1.5L, Total Bilirubin 0.5, Aspartate Amino Transf (AST/SGOT) 21, Alanine Aminotransferase (ALT/SGPT) 37, Alkaline Phosphatase 76, Total Protein 5.0L, Albumin 1.2L, Globulin 3.8, Albumin/Globulin Ratio 0.3L 07/21/20 11:04: POC Whole Blood Glucose 89 Height (Feet): 5 Height (Inches): 3.00 Weight (Pounds): 173 General Appearance: no apparent distress EENT: other - Tracheostomy to vent Cardiovascular: bradycardia Respiratory/Chest: decreased breath sounds Abdomen: distended Keron Pitt MD Jul 21, 2020 14:45
[2020-07-21 16:00] VITALS: BP 102/54
--- NOTE | 2020-07-21 16:55 | NUR ---
CASE MANAGEMENT: REVIEW SI: ARDS . RESP FAILURE . DOWN'S SYNDROME . PNEUMOTHORAX TRACHEOSTOMY 07/16 RIGHT CHEST TUBE 07/10 T 97.9 HR 45 RR 20 BP 114/63 SAT 97% MECH VENT FIO2 45 H/H 7.4/22.0 MAG 1.5 IS: NS IVF @ 50ML/HR SOLU CORTEF IV Q12HR PROTONIX IV Q12HR MAG SULFATE IV X1 NS IVF X1 STEP DOWN UNIT STATUS DCP: PATIENT IS FROM [facility]
--- NOTE | 2020-07-21 18:46 | Internal Med Progress Note ---
Subjective Date of Service: Jul 21, 2020 Physician Name Joni Copeland Attending Physician Elayne Allred MD Current Medications Medications (Trade) Dose Ordered Sig/Katy Route PRN Reason Start Time Stop Time Status Last Admin Dose Admin Acetaminophen (Tylenol) 650 mg Q4H PRN GT For Pain 07/01/20 17:15 07/31/20 17:14 07/10/20 17:46 Chlorhexidine Gluconate (Alla-Hex 2%) 1 applic DAILY@2000 TOPIC 06/08/20 20:00 09/06/20 19:59 07/20/20 20:26 Clotrimazole (Lotrimin) 1 applic Q12HR TOPIC 06/07/20 13:00 09/05/20 12:59 07/21/20 09:07 Dextrose (Dextrose 50%) 25 ml Q30M PRN IV Hypoglycemia 06/03/20 11:30 08/28/20 11:29 Dextrose (Dextrose 50%) 50 ml Q30M PRN IV Hypoglycemia 06/03/20 11:30 08/28/20 11:29 Hydrocortisone (Solu-CORTEF) 25 mg Q12H IV 07/17/20 22:00 10/15/20 21:59 07/21/20 10:10 Insulin Aspart (NovoLOG) Q6HR SUBQ 06/26/20 12:00 09/24/20 11:59 07/20/20 05:53 Insulin Detemir (Levemir) 10 units Q12HR SUBQ 06/26/20 10:00 09/24/20 09:59 07/20/20 22:24 Levothyroxine Sodium (Synthroid) 75 mcg DAILY@0630 GT 07/08/20 06:30 08/07/20 06:29 07/21/20 05:26 Loperamide HCl (Imodium) 2 mg Q6H PRN NG Diarrhea 06/24/20 10:30 07/24/20 10:29 07/01/20 11:41 Pantoprazole (Protonix) 40 mg EVERY 12 HOURS IVP 07/06/20 21:00 08/05/20 20:59 07/21/20 09:07 Potassium Chloride (K-Dur) 40 meq EVERY 12 HOURS GT 07/04/20 21:00 09/26/20 12:14 07/21/20 09:08 Allergies: Coded Allergies: No Known Allergies (Unverified , 10/16/18) ROS Limited/Unobtainable: Yes Subjective 59 YO F with Down's syndrome admitted with hypoxia. Now sepsis and pneumonia. Cover for Int Arturo-DR Hawk. Step Down Unit Objective Last Vital Signs Date Time Temp Pulse Resp B/P (MAP) Pulse Ox O2 Delivery O2 Flow Rate FiO2 07/21/20 16:58 Mechanical Ventilator Mechanical Ventilator Mechanical Ventilator 07/21/20 16:35 45 07/21/20 16:00 97.3 48 20 102/54 (70) 100 Laboratory Tests Test 07/20/20 22:20 07/21/20 00:37 07/21/20 04:30 07/21/20 11:04 POC Whole Blood Glucose Pending 111 MG/DL (74-106) H 89 MG/DL (74-106) White Blood Count 8.6 K/UL (4.8-10.8) Red Blood Count 2.33 M/UL (4.20-5.40) L Hemoglobin 7.4 G/DL (12.0-16.0) L Hematocrit 22.0 % (37.0-47.0) L Mean Corpuscular Volume 94 FL (80-99) Mean Corpuscular Hemoglobin 31.8 PG (27.0-31.0) H Mean Corpuscular Hemoglobin Concent 33.7 G/DL (32.0-36.0) Red Cell Distribution Width 17.6 % (11.6-14.8) H Platelet Count 79 K/UL (150-450) L Mean Platelet Volume 9.9 FL (6.5-10.1) Neutrophils (%) (Auto) % (45.0-75.0) Lymphocytes (%) (Auto) % (20.0-45.0) Monocytes (%) (Auto) % (1.0-10.0) Eosinophils (%) (Auto) % (0.0-3.0) Basophils (%) (Auto) % (0.0-2.0) Differential Total Cells Counted 100 Neutrophils % (Manual) 69 % (45-75) Lymphocytes % (Manual) 23 % (20-45) Monocytes % (Manual) 5 % (1-10) Eosinophils % (Manual) 0 % (0-3) Basophils % (Manual) 0 % (0-2) Band Neutrophils 3 % (0-8) Platelet Estimate Decreased L Platelet Morphology Normal Anisocytosis 2+ Sodium Level 141 MMOL/L (136-145) Potassium Level 3.6 MMOL/L (3.5-5.1) Chloride Level 109 MMOL/L (98-107) H Carbon Dioxide Level 25 MMOL/L (21-32) Anion Gap 7 mmol/L (5-15) Blood Urea Nitrogen 14 mg/dL (7-18) Creatinine 0.5 MG/DL (0.55-1.30) L Estimat Glomerular Filtration Rate > 60 mL/min (>60) Glucose Level 141 MG/DL (74-106) H Calcium Level 7.1 MG/DL (8.5-10.1) L Phosphorus Level 2.6 MG/DL (2.5-4.9) Magnesium Level 1.5 MG/DL (1.8-2.4) L Total Bilirubin 0.5 MG/DL (0.2-1.0) Aspartate Amino Transf (AST/SGOT) 21 U/L (15-37) Alanine Aminotransferase (ALT/SGPT) 37 U/L (12-78) Alkaline Phosphatase 76 U/L (46-116) Total Protein 5.0 G/DL (6.4-8.2) L Albumin 1.2 G/DL (3.4-5.0) L Globulin 3.8 g/dL Albumin/Globulin Ratio 0.3 (1.0-2.7) L Test 07/21/20 16:16 POC Whole Blood Glucose Pending Intake and Output 07/20/20 07/21/20 19:00 07:00 Intake Total 1309.2 ml 1250 ml Output Total 750 ml Balance 559.2 ml 1250 ml Free Water 140 ml 100 ml IV Total 569.2 ml 600 ml Tube Feeding 600 ml 550 ml Output Urine Total 750 ml Objective General Appearance: WD/WN, no apparent distress, alert EENT: PERRL/EOMI, normal ENT inspection Neck: non-tender, normal alignment, supple, normal inspection Cardiovascular: normal peripheral pulses, normal rate, regular rhythm, no gallop/murmur, no JVD Respiratory/Chest: Mech vent; decreased breath sounds, crackles/rales, rhonchi - bilaterally, expiratory wheezing Abdomen: normal bowel sounds, non tender, soft, no organomegaly, no mass Extremities: normal range of motion 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 S/P amikacin per ID=Dr Camejo. Pulmonary/Critical care=DR Allred. COVID NEG (2) Sepsis Assessment & Plan: Staph haemolyticus. S/P amikacin per ID=Dr Camejo (3) Down's syndrome (4) Dysphagia Assessment & Plan: S/P PEG (5) Seizure disorder Assessment & Plan: Continue keppra and depakote (6) Hypothyroidism Assessment & Plan: Continue synthroid (7) Acute respiratory failure Assessment & Plan: Pulmonary = Dr Allred; mech vent (8) Pneumothorax, right Assessment & Plan: Continue chest tube per pulmonary (9) Cardiac arrest Assessment & Plan: 06/03/20-see cardiology note=Joni Lord MD Jul 21, 2020 18:46
--- NOTE | 2020-07-21 19:31 | NUR ---
NURSE HAND-OFF REPORT: Important Events on Shift:none Patient Status:full code Diet: vital af Pending Orders: none Pending Results/Labs:none Pending MD notification:none Latest Vital Signs: Temperature 97.3 , Pulse 48 , B/P 102 /54 , Respiratory Rate 20 , O2 SAT 100 , Mechanical Ventilator, O2 Flow Rate 15.0 . Vital Sign Comment: none EKG Rhythm: Sinus Bradycardia Rhythm change?: N MD Notified?: Y -Dr Arlin PRAKASH Response: No New Orders Received Latest Osorio Fall Score: 70 Fall Risk: High Risk Safety Measures: Call light Within Reach, Bed Alarm Zone 1, Side Rails Side Rails x3, Bed position Low and Locked. Fall Precautions: Yellow Socks Report given to Soren Long.
--- NOTE | 2020-07-21 19:35 | NUR ---
RESPIRATORY NOTE: Received pt on AC 20, 500VT, 45%, no PEEP. Pt is trach-dependent w/ a Cuffed, Shiley 8 tube. Pt is awake/disoriented. B/S sissy. rhonchi, sxn small to moderate amounts of thick/thin/frothy, pale-yellow to newman-yellow secretions. Vent plugged into red outlet, ambubag at bedside. Pt resting comfortably, in no apparent distress at this time. Will continue plan of care.
--- NOTE | 2020-07-21 19:43 | NUR ---
NURSE NOTES: Important Events on Shift: Received report from Pamella Ayala RN. Patient Status: stable Diet: Vital AF @ 50ml/hr Pending Orders: DC planning Pending Results/Labs:none Pending MD notification:none Latest Vital Signs: Temperature 97.3 , Pulse 53 , B/P 102 /54 , Respiratory Rate 20 , O2 SAT 100 , Mechanical Ventilator, O2 Flow Rate 15.0 . Vital Sign Comment: EKG Rhythm: Sinus Bradycardia Rhythm change?: N MD Notified?: Y -Dr Arlin PRAKASH Response: No New Orders Received Latest Osorio Fall Score: 70 Fall Risk: High Risk Safety Measures: Call light Within Reach, Bed Alarm Zone 1, Side Rails Side Rails x3, Bed position Low and Locked. Fall Precautions: Yellow Socks YES Bed alarm armed YES Side rail up x 3 YES Bed in lowest position YES Call light within reach YES
[2020-07-21 20:00] VITALS: BP 125/57
[2020-07-21] MEDS: Dyna-Hex 2% Top Sol 2oz TOPIC SCH (20:27)
[2020-07-22] MEDS: NovoLOG Insulin Flexpen SUBQ SCH ×5 (00:12→23:39)
[2020-07-22 00:25] VITALS: BP 121/60
[2020-07-22 04:00] VITALS: BP 117/56
[2020-07-22 04:51] LABS: HEMATOCRIT 21.7 % (37.0-47.0); HEMOGLOBIN 7.1 G/DL (12.0-16.0); MEAN CORPUSCULAR VOLUME 95 FL (80-99); PLATELET COUNT 94 K/UL (150-450); RED BLOOD COUNT 2.29 M/UL (4.20-5.40); RED CELL DISTRIBUTION WIDTH 17.6 % (11.6-14.8); WHITE BLOOD COUNT 7.5 K/UL (4.8-10.8)
[2020-07-22 04:58] LABS: ANION GAP 6 mmol/L (5-15); BLOOD UREA NITROGEN 15 mg/dL (7-18); CALCIUM 7.3 MG/DL (8.5-10.1); CARBON DIOXIDE 26 MMOL/L (21-32); CHLORIDE 111 MMOL/L (98-107); CREATININE 0.5 MG/DL (0.55-1.30); POTASSIUM 3.9 MMOL/L (3.5-5.1); SODIUM 143 MMOL/L (136-145)
--- NOTE | 2020-07-22 07:23 | NUR ---
NURSE HAND-OFF REPORT: Important Events on Shift: None Patient Status: Stable Diet: Vital @ 50ml/hr Pending Orders: none Pending Results/Labs: none Pending MD notification: none Latest Vital Signs: Temperature 98.9 , Pulse 58 , B/P 117 /56 , Respiratory Rate 20 , O2 SAT 99 , Mechanical Ventilator, O2 Flow Rate 15.0 . Vital Sign Comment: stable EKG Rhythm: Sinus Bradycardia Rhythm change?: N MD Notified?: Y -Dr Arlin PRAKASH Response: No New Orders Received Latest Osorio Fall Score: 70 Fall Risk: High Risk Safety Measures: Call light Within Reach, Bed Alarm Zone 1, Side Rails Side Rails x3, Bed position Low and Locked. Fall Precautions: yes Yellow Socks yes Report given to Sheyla De Leon RN.
--- NOTE | 2020-07-22 07:30 | NUR ---
NURSE NOTES: Received report from TAI Duarte, patient in bed, sleeping. Noted with trach size shiley 8 with settings of AC-20 TV-500 FiO2-45% tolerated well. In no apparent distress noted. On GT feeding Vital AF at 50cc on hold per TAI Duarte, Synthroid was given, will resume later. Gtube is intact patent and flushed well. Picc line on L upper Arm , line is patent, intact and flushed well no fluids running from previous shift. No infiltration noted. With sarah catheter, draining color yellowish urine with 150ml on the bag. Safety measures in placed . Will continue to monitor.
[2020-07-22 08:00] VITALS: BP 109/54
--- NOTE | 2020-07-22 08:10 | NUR ---
NURSE NOTES: Repositioned patient and oral care given.
--- NOTE | 2020-07-22 08:55 | NUR ---
NURSE NOTES: Dr Allred notified H/H 7.1 21.7,ordered to transfuse 1 U PRBC.
[2020-07-22] MEDS: Pantoprazole Inj IVP SCH ×2 (08:57→20:26)
[2020-07-22] MEDS: Levemir Flexpen SUBQ SCH ×2 (09:00→20:20)
--- NOTE | 2020-07-22 10:07 | General Progress Note ---
Subjective ROS Limited/Unobtainable: No Allergies: Coded Allergies: No Known Allergies (Unverified , 10/16/18) Objective Last 24 Hour Vital Signs Date Time Temp Pulse Resp B/P (MAP) Pulse Ox O2 Delivery O2 Flow Rate FiO2 07/22/20 08:00 Mechanical Ventilator Mechanical Ventilator Mechanical Ventilator 07/22/20 08:00 98.2 59 18 109/54 (72) 100 07/22/20 08:00 45 07/22/20 07:41 50 07/22/20 07:05 50 21 45 07/22/20 04:00 98.9 58 20 117/56 (76) 99 07/22/20 04:00 48 07/22/20 04:00 Mechanical Ventilator Mechanical Ventilator Mechanical Ventilator 07/22/20 04:00 45 07/22/20 03:03 49 20 45 07/22/20 00:25 98.3 53 21 121/60 (80) 100 07/22/20 00:00 Mechanical Ventilator Mechanical Ventilator Mechanical Ventilator 07/22/20 00:00 45 07/22/20 00:00 45 07/21/20 23:00 48 20 45 07/21/20 20:00 45 07/21/20 20:00 97.9 50 18 125/57 (79) 100 07/21/20 20:00 50 07/21/20 20:00 Mechanical Ventilator Mechanical Ventilator Mechanical Ventilator 07/21/20 19:32 53 20 45 07/21/20 16:58 Mechanical Ventilator Mechanical Ventilator Mechanical Ventilator 07/21/20 16:35 45 07/21/20 16:35 Mechanical Ventilator Mechanical Ventilator Mechanical Ventilator 07/21/20 16:00 97.3 48 20 102/54 (70) 100 07/21/20 15:39 53 07/21/20 14:50 50 20 45 07/21/20 12:00 97.9 53 20 114/63 (80) 97 07/21/20 12:00 47 07/21/20 12:00 45 07/21/20 12:00 Mechanical Ventilator Mechanical Ventilator Mechanical Ventilator 07/21/20 10:53 54 20 45 Intake and Output 07/21/20 07/22/20 19:00 07:00 Intake Total 1150 ml 850 ml Output Total 1800 ml Balance -650 ml 850 ml Free Water 100 ml 100 ml IV Total 500 ml Tube Feeding 550 ml 750 ml Output Urine Total 1800 ml # Bowel Movements 1 Laboratory Tests 07/21/20 11:04: POC Whole Blood Glucose 89 07/21/20 16:16: POC Whole Blood Glucose [Pending] 07/21/20 20:36: POC Whole Blood Glucose 133H 07/22/20 00:08: POC Whole Blood Glucose 156H 07/22/20 04:00: White Blood Count 7.5, Red Blood Count 2.29L, Hemoglobin 7.1L, Hematocrit 21.7L, Mean Corpuscular Volume 95, Mean Corpuscular Hemoglobin 31.0, Mean Corpuscular Hemoglobin Concent 32.7, Red Cell Distribution Width 17.6H, Platelet Count 94L, Mean Platelet Volume 9.4, Neutrophils (%) (Auto) , Lymphocytes (%) (Auto) , Monocytes (%) (Auto) , Eosinophils (%) (Auto) , Basophils (%) (Auto) , Differential Total Cells Counted 100, Neutrophils % (Manual) 67, Lymphocytes % (Manual) 26, Monocytes % (Manual) 5, Eosinophils % (Manual) 1, Basophils % (Manual) 0, Band Neutrophils 1, Platelet Estimate DecreasedL, Platelet Mo rphology Normal, Anisocytosis 1+, Sodium Level 143, Potassium Level 3.9, Chloride Level 111H, Carbon Dioxide Level 26, Anion Gap 6, Blood Urea Nitrogen 15, Creatinine 0.5L, Estimat Glomerular Filtration Rate > 60, Glucose Level 177H , Calcium Level 7.3L 07/22/20 05:24: POC Whole Blood Glucose [Pending] 07/22/20 08:55: POC Whole Blood Glucose 92 Height (Feet): 5 Height (Inches): 3.00 Weight (Pounds): 173 General Appearance: no apparent distress EENT: normal ENT inspection Neck: supple Cardiovascular: normal rate Respiratory/Chest: decreased breath sounds Abdomen: normal bowel sounds, non tender, soft Extremities: non-tender Assessment/Plan Status: stable, unchanged Assessment/Plan: 1. History of Down syndrome. 2. Dysphagia with G-tube. 3. Seizure disorder. 4. Hypothyroidism. 5. LEANN. 6. Pneumonia. 7. Sepsis. fu H&H prn blood transfusion to keep HGB above 7>>> one unit today ppi GTF hold GI procedures for now Nehemiah Perez MD Jul 22, 2020 10:07
--- NOTE | 2020-07-22 10:09 | Pulmonolgy Critical Care Note ---
Critical Care - Asmt/Plan Problems: (1) Acute respiratory failure (2) Pneumothorax (3) Bacteremia (4) Pneumonia (5) Sepsis (6) HCAP (healthcare-associated pneumonia) (7) Seizure disorder (8) Down's syndrome (9) Trisomy 21, Down syndrome Respiratory: monitor respiratory rate, adjust FIO2, CXR Cardiac: continue to monitor HR/BP Renal: F/U I&O, other - one dose of lasix today, check bnp and cxr in am Infectious Disease: check cultures Gastrointestinal: continue feedings/current rate Endocrine: monitor blood sugar Neurologic: PRN Ativan, PRN Morphine Time Spent (Minutes): 40 Notes Reviewed: supervisor lace tearing, cardio, ID, GI Discussed with: nurses, consultants Critical Care - Objective Last 24 Hour Vital Signs Date Time Temp Pulse Resp B/P (MAP) Pulse Ox O2 Delivery O2 Flow Rate FiO2 07/22/20 08:00 Mechanical Ventilator Mechanical Ventilator Mechanical Ventilator 07/22/20 08:00 98.2 59 18 109/54 (72) 100 07/22/20 08:00 45 07/22/20 07:41 50 07/22/20 07:05 50 21 45 07/22/20 04:00 98.9 58 20 117/56 (76) 99 07/22/20 04:00 48 07/22/20 04:00 Mechanical Ventilator Mechanical Ventilator Mechanical Ventilator 07/22/20 04:00 45 07/22/20 03:03 49 20 45 07/22/20 00:25 98.3 53 21 121/60 (80) 100 07/22/20 00:00 Mechanical Ventilator Mechanical Ventilator Mechanical Ventilator 07/22/20 00:00 45 07/22/20 00:00 45 07/21/20 23:00 48 20 45 07/21/20 20:00 45 07/21/20 20:00 97.9 50 18 125/57 (79) 100 07/21/20 20:00 50 07/21/20 20:00 Mechanical Ventilator Mechanical Ventilator Mechanical Ventilator 07/21/20 19:32 53 20 45 07/21/20 16:58 Mechanical Ventilator Mechanical Ventilator Mechanical Ventilator 07/21/20 16:35 45 07/21/20 16:35 Mechanical Ventilator Mechanical Ventilator Mechanical Ventilator 07/21/20 16:00 97.3 48 20 102/54 (70) 100 07/21/20 15:39 53 07/21/20 14:50 50 20 45 07/21/20 12:00 97.9 53 20 114/63 (80) 97 07/21/20 12:00 47 07/21/20 12:00 45 07/21/20 12:00 Mechanical Ventilator Mechanical Ventilator Mechanical Ventilator 07/21/20 10:53 54 20 45 Status: awake Condition: critical, improving HEENT: atraumatic Neck: trach Lungs: rales, rhonchi Heart: HR/BP stable, edema Abdomen: soft, non-tender, active bowel sounds Extremities: no C/C/E Accucheck: 92 Critical Care - Subjective ROS Limited/Unobtainable: Yes Condition: critical EKG Rhythm: Sinus Rhythm FI02: 45 Vent Support Breath Rate: 20 Vent Support Mode: AC Vent Tidal Volume: 500 Sputum Amount: Moderate PEEP: 0.0 PIP: 26 Tube Feeding Amount: 50 I&O: Intake and Output 07/21/20 07/22/20 19:00 07:00 Intake Total 1150 ml 850 ml Output Total 1800 ml Balance -650 ml 850 ml Free Water 100 ml 100 ml IV Total 500 ml Tube Feeding 550 ml 750 ml Output Urine Total 1800 ml # Bowel Movements 1 CXR: extensive infiltrate, trach intact ET-Tube: 7.5 ET Position: 23 Labs: Laboratory Tests Test 07/21/20 11:04 07/21/20 16:16 07/21/20 20:36 07/22/20 00:08 POC Whole Blood Glucose 89 MG/DL (74-106) Pending 133 MG/DL (74-106) H 156 MG/DL (74-106) H Test 07/22/20 04:00 07/22/20 05:24 07/22/20 08:55 White Blood Count 7.5 K/UL (4.8-10.8) Red Blood Count 2.29 M/UL (4.20-5.40) L Hemoglobin 7.1 G/DL (12.0-16.0) L Hematocrit 21.7 % (37.0-47.0) L Mean Corpuscular Volume 95 FL (80-99) Mean Corpuscular Hemoglobin 31.0 PG (27.0-31.0) Mean Corpuscular Hemoglobin Concent 32.7 G/DL (32.0-36.0) Red Cell Distribution Width 17.6 % (11.6-14.8) H Platelet Count 94 K/UL (150-450) L Mean Platelet Volume 9.4 FL (6.5-10.1) Neutrophils (%) (Auto) % (45.0-75.0) Lymphocytes (%) (Auto) % (20.0-45.0) Monocytes (%) (Auto) % (1.0-10.0) Eosinophils (%) (Auto) % (0.0-3.0) Basophils (%) (Auto) % (0.0-2.0) Differential Total Cells Counted 100 Neutrophils % (Manual) 67 % (45-75) Lymphocytes % (Manual) 26 % (20-45) Monocytes % (Manual) 5 % (1-10) Eosinophils % (Manual) 1 % (0-3) Basophils % (Manual) 0 % (0-2) Band Neutrophils 1 % (0-8) Platelet Estimate Decreased L Platelet Morphology Normal Anisocytosis 1+ Sodium Level 143 MMOL/L (136-145) Potassium Level 3.9 MMOL/L (3.5-5.1) Chloride Level 111 MMOL/L (98-107) H Carbon Dioxide Level 26 MMOL/L (21-32) Anion Gap 6 mmol/L (5-15) Blood Urea Nitrogen 15 mg/dL (7-18) Creatinine 0.5 MG/DL (0.55-1.30) L Estimat Glomerular Filtration Rate > 60 mL/min (>60) Glucose Level 177 MG/DL (74-106) H Calcium Level 7.3 MG/DL (8.5-10.1) L POC Whole Blood Glucose Pending 92 MG/DL (74-106) Elayne Allrde MD Jul 22, 2020 10:09
--- NOTE | 2020-07-22 10:15 | NUR ---
NURSE NOTES: Dr Allred at bedside,updated re pt's status,orders written and carried out.
[2020-07-22] MEDS: Hydrocortisone 100mg Inj IV SCH ×2 (10:20→21:21)
--- NOTE | 2020-07-22 10:55 | NUR ---
NURSE NOTES: PRBC initiated and running, no s/s transfusion noted at this time, Will continue to monitor
--- NOTE | 2020-07-22 11:10 | NUR ---
NURSE NOTES: Vital signs stable , no adverse reaction noted at this time after 15 minutes of transfusion initiated, Will continue to follow up.
--- NOTE | 2020-07-22 11:30 | NUR ---
CASE MANAGEMENT: REVIEW 07/22/20 SI: RESP FAILURE....NEW TRACH DOWN'S SYNDROME . PNEUMOTHORAX...S/P CHEST TUBE 98.2 51 18 109/54 100% ON 45% FIO2 H/H-7.1/21.7 PLT-94 IS: TRANSFUSE 1 UNIT PRBC'S IV SOLUCORTEF Q12 IV PROTONIX Q12 K-DUR GT Q12 : SDU DCP: PATIENT IS FROM [facility]
--- NOTE | 2020-07-22 11:43 | NUR ---
DISCHARGE BARRIER [facility] WILL NOT ACCEPT PATIENT ON 45% FIO2 FIO2 NEEDS TO BE 30% OR BELOW PLAN: TRANSFUSION AND LASIX TODAY
[2020-07-22 12:00] VITALS: BP 104/72
--- NOTE | 2020-07-22 12:03 | Infectious Diseases Prog Note ---
Assessment/Plan ASSESSMENT: sp code blue 06/03 Septic Shock; SP Fever, recurrent- low grade -SP Leukocytosis; recurrent; SP 10/5 u/a -, nit neg, leuk +2; ucx PsA (I Genta); colonizer sp cx P, mirabilsi (R levo); colonzier -06/27 Bcx Neg -06/17 u/a no pyuria -06/16 Bcx Neg(Picc line) -06/14 Bcx Neg ucx Neg sp cx C. parapsilopsis -06/03 u/a no pyuria Pneumonia.- COVID 19 neg x3 Acute hypoxic resp failure on VM> NRB 15l 100%; hypoxic on ABG> now VDRF 06/03- Fio2 80% >100% 06/05> 60% 06/09 >80% 06/10 >95% 06/18 >90% 06/22 >60% 06/23 R tension Pneumothroax sp CT 06/29 07/17 sp trach 07/17 CXR: Diffuse airspace opacities. 07/16 CXR: bilateral infiltrates are all unchanged. 07/13 CXR: Extensive bilateral airspace opacities, right greater than left, consistent with multifocal infiltrate worse pulmonary edema. This is similar in appearance to the prior study. Worsening, small left pleural effusion. This may be secondary to redistribution as the right-sided pleural effusion has mildly improved. -06/30 CXR: Interim complete reexpansion of right lung without evidence of residual pneumothorax. Bilateral diffuse and extensive infiltrates. Markedly improved chest wall subcutaneous emphysema -06/29 CXR: Interim reexpansion of previously demonstrated right pneumothorax, status post large bore chest tube placement. -06/22 CXR: Improved aeration of both lungs. -06/13 CXR:Small bilateral pleural effusions with minor edema. Stable edema with mild worsening in the degree of pleural effusion on the right. -06/09 sp cx Neg 06/08 CXR: Extensive bilateral interstitial and airspace disease appears similar to the prior exam. Moderate to large bilateral pleural effusions appear unchanged. 06/05 CXR: Increasing left upper lobe dense consolidation and likely increasing bilateral pleural fluid. Persistent diffuse dense consolidation elsewhere -06/03 sp cx normal resp marie -06/02 CXR: Increased atelectasis of the right lung, since prior exam of 3 days earlier. New or increased right pleural effusion. Increased left basilar consolidation and/or pleural fluid -COVID Rapid PCR neg 05/31, 05/31, 06/03 -05/30 spc x Group G strep -05/30 CXR: Reduced lung volumes. Patchy bilateral predominantly interstitial pulmonary opacities. Could be from edema and/or pneumonia. There is a broader differential. -legionella ag urine, blasto ab, Histo ab, HIV ab screen, FRANCIS, ANCA neg Persistent, high grade bacteremia- -05/30 Bcx 4/4 sets S. haemolyticus; 05/31 Bcx 3/4 S/ epi; 06/04 Bcx 1.4 S. warnerri; 06/06 Bcx Neg -2d echo: no vegetaions seen ua/ wbc 10-15, nit neg, leuk +1; ucx Neg LEANN; -supratherapeutic vanco levels -Seizure disorder. - Hypothyroidism. - Down syndrome. History of PEG tube placement. [facility] resident PLAN: Monitor off abx unless febrile, increasing WBC and/or HD unstable 06/22 SP Meropenem #18, IV Amikacin #7 06/12/20 SP Daptomycin #11 06/10 SP MIcafungin #7, Linezolid #5 06/05 SP Azithromycin #7/7 06/03 SP Ceftriaxone #2 06/02 SP IV Vancomycin #4, Zosyn #4 05/30 SP Cefepime x1, Flagyl x1 - Monitor CBC, BMP. .f/u cx - COVID neg x3 - Monitor chest x-ray. -PEG/Trach care -aspiration precautions -discharge planning to SNF-needs to be FIO2 30% or below Thank you, Dr. Allred, for allowing me to participate in the care of this patient. I will follow the patient with you at this hospitalization. Discussed with RN Subjective Allergies: Coded Allergies: No Known Allergies (Unverified , 10/16/18) afebrile no leukocytosis off abx Objective Last 24 Hour Vital Signs Date Time Temp Pulse Resp B/P (MAP) Pulse Ox O2 Delivery O2 Flow Rate FiO2 07/22/20 11:13 51 20 45 07/22/20 08:00 Mechanical Ventilator Mechanical Ventilator Mechanical Ventilator 07/22/20 08:00 98.2 59 18 109/54 (72) 100 07/22/20 08:00 45 07/22/20 07:41 50 07/22/20 07:05 50 21 45 07/22/20 04:00 98.9 58 20 117/56 (76) 99 07/22/20 04:00 48 07/22/20 04:00 Mechanical Ventilator Mechanical Ventilator Mechanical Ventilator 07/22/20 04:00 45 07/22/20 03:03 49 20 45 07/22/20 00:25 98.3 53 21 121/60 (80) 100 07/22/20 00:00 Mechanical Ventilator Mechanical Ventilator Mechanical Ventilator 07/22/20 00:00 45 07/22/20 00:00 45 07/21/20 23:00 48 20 45 07/21/20 20:00 45 07/21/20 20:00 97.9 50 18 125/57 (79) 100 07/21/20 20:00 50 07/21/20 20:00 Mechanical Ventilator Mechanical Ventilator Mechanical Ventilator 07/21/20 19:32 53 20 45 07/21/20 16:58 Mechanical Ventilator Mechanical Ventilator Mechanical Ventilator 07/21/20 16:35 45 07/21/20 16:35 Mechanical Ventilator Mechanical Ventilator Mechanical Ventilator 07/21/20 16:00 97.3 48 20 102/54 (70) 100 07/21/20 15:39 53 07/21/20 14:50 50 20 45 Height (Feet): 5 Height (Inches): 3.00 Weight (Pounds): 173 HEENT: . trach in place CHEST: Coarse breathing sounds. HEART: S1 and S2. ABDOMEN: Soft. PEG tube in place. SKIN: no rash Laboratory Tests Test 07/21/20 16:16 07/21/20 20:36 07/22/20 00:08 07/22/20 04:00 POC Whole Blood Glucose Pending 133 MG/DL (74-106) H 156 MG/DL (74-106) H White Blood Count 7.5 K/UL (4.8-10.8) Red Blood Count 2.29 M/UL (4.20-5.40) L Hemoglobin 7.1 G/DL (12.0-16.0) L Hematocrit 21.7 % (37.0-47.0) L Mean Corpuscular Volume 95 FL (80-99) Mean Corpuscular Hemoglobin 31.0 PG (27.0-31.0) Mean Corpuscular Hemoglobin Concent 32.7 G/DL (32.0-36.0) Red Cell Distribution Width 17.6 % (11.6-14.8) H Platelet Count 94 K/UL (150-450) L Mean Platelet Volume 9.4 FL (6.5-10.1) Neutrophils (%) (Auto) % (45.0-75.0) Lymphocytes (%) (Auto) % (20.0-45.0) Monocytes (%) (Auto) % (1.0-10.0) Eosinophils (%) (Auto) % (0.0-3.0) Basophils (%) (Auto) % (0.0-2.0) Differential Total Cells Counted 100 Neutrophils % (Manual) 67 % (45-75) Lymphocytes % (Manual) 26 % (20-45) Monocytes % (Manual) 5 % (1-10) Eosinophils % (Manual) 1 % (0-3) Basophils % (Manual) 0 % (0-2) Band Neutrophils 1 % (0-8) Platelet Estimate Decreased L Platelet Morphology Normal Anisocytosis 1+ Sodium Level 143 MMOL/L (136-145) Potassium Level 3.9 MMOL/L (3.5-5.1) Chloride Level 111 MMOL/L (98-107) H Carbon Dioxide Level 26 MMOL/L (21-32) Anion Gap 6 mmol/L (5-15) Blood Urea Nitrogen 15 mg/dL (7-18) Creatinine 0.5 MG/DL (0.55-1.30) L Estimat Glomerular Filtration Rate > 60 mL/min (>60) Glucose Level 177 MG/DL (74-106) H Calcium Level 7.3 MG/DL (8.5-10.1) L Test 07/22/20 05:24 07/22/20 08:55 07/22/20 11:44 POC Whole Blood Glucose Pending 92 MG/DL (74-106) 108 MG/DL (74-106) H Current Medications Medications (Trade) Dose Ordered Sig/Katy Route PRN Reason Start Time Stop Time Status Last Admin Dose Admin Acetaminophen (Tylenol) 650 mg Q4H PRN GT For Pain 07/01/20 17:15 07/31/20 17:14 07/10/20 17:46 Chlorhexidine Gluconate (Alla-Hex 2%) 1 applic DAILY@1999 TOPIC 06/08/20 20:00 09/06/20 19:59 07/21/20 20:27 Clotrimazole (Lotrimin) 1 applic Q12HR TOPIC 06/07/20 13:00 09/05/20 12:59 07/22/20 09:00 Dextrose (Dextrose 50%) 25 ml Q30M PRN IV Hypoglycemia 06/03/20 11:30 08/28/20 11:29 Dextrose (Dextrose 50%) 50 ml Q30M PRN IV Hypoglycemia 06/03/20 11:30 08/28/20 11:29 Hydrocortisone (Solu-CORTEF) 25 mg Q12H IV 07/17/20 22:00 10/15/20 21:59 07/22/20 10:20 Insulin Aspart (NovoLOG) Q6HR SUBQ 06/26/20 12:00 09/24/20 11:59 07/22/20 06:05 Insulin Detemir (Levemir) 10 units Q12HR SUBQ 06/26/20 10:00 09/24/20 09:59 07/21/20 20:38 Levothyroxine Sodium (Synthroid) 75 mcg DAILY@0630 GT 07/08/20 06:30 08/07/20 06:29 07/22/20 06:05 Loperamide HCl (Imodium) 2 mg Q6H PRN NG Diarrhea 06/24/20 10:30 07/24/20 10:29 07/01/20 11:41 Pantoprazole (Protonix) 40 mg EVERY 12 HOURS IVP 07/06/20 21:00 08/05/20 20:59 07/22/20 08:57 Potassium Chloride (K-Dur) 40 meq EVERY 12 HOURS GT 07/04/20 21:00 09/26/20 12:14 07/22/20 08:57 Suki Camejo M.D. Jul 22, 2020 12:03
--- NOTE | 2020-07-22 12:25 | NUR ---
NURSE NOTES: Blood transfusion on going. Will continue to monitor.
--- NOTE | 2020-07-22 12:38 | Nephrology Progress Note ---
Assessment/Plan Problem List: (1) LEANN (acute kidney injury) (2) Respiratory failure requiring intubation (3) Down's syndrome (4) Seizure disorder (5) Hypothyroidism Assessment Acute renal failure, likely due to hypotension Acute respiratory distress, hypoxia Seizure disorder Hypothyroidism Down syndrome Full code Fluid challenge with IV fluids and albumin Midodrine for BP above 100 systolic Check TSH level Check Correct level Monitor renal parameters Urine studies Per orders Plan July 22: Labs reviewed. Electrolyte abnormalities addressed. Hemoglobin lower. I suggest transfusion which I am deferring to PMD. Continue to monitor renal parameters. July 21: Labs reviewed. Magnesium supplement given. Hemoglobin 7.4. Defer transfusion to PMD. Continue to monitor electrolytes and renal parameters July 20: Due discontinuation of chest tube today. Trach to vent. Renal parameters stable. July 19: Trach to vent. Left chest tube to drain. Full code. Labs reviewed. Renal parameters stable. July 18: Trached and vent. Still has left chest tube to drain. No chemistry panel today. Continue per consultants. Patient full code. July 17: Patient now has trach connected to vent. Left chest tube remains in place. Patient full code. Continue per consultants. Labs reviewed. July 16: Discussed with RN. Remains on ventilator. Labs reviewed. Stable from renal standpoint of view. Patient due for tracheostomy when clinically stable. July 15: On ventilator. Left chest tube remains. Full code. Labs reviewed. Electrolyte abnormalities addressed. Continue per consultants. July 14: On ventilator. Tracheostomy postponed because patient is clinically unstable. Still have left chest tube draining. Labs reviewed. Electrolyte abnormalities addressed. Continue per consultants. July 13: Remains intubated on ventilator. Discussed with RN. Unclear if the patient is due for tracheostomy today or not. Apparently the patient was reintubated again yesterday. Patient has left chest tube. Electrolyte abnormalities addressed. July 12: Remains intubated on ventilator. Due for tracheostomy tomorrow. Left chest tube present. Patient is full code. Labs reviewed. Continue as is. July 11: Remains intubated on ventilator. Due for tracheostomy July 13. Has left-sided chest tube. Stable from renal standpoint to view. Continue per consultants. July 10: Remains intubated on ventilator. Electrolyte abnormalities a ddressed. Supplements ordered. July 09: Intubated on ventilator. Labs reviewed. Potassium supplement given. Remains bradycardic. Continue per consultants. July 08: Labs reviewed. Electrolyte abnormalities addressed. Heart rate remains bradycardic. Continue per cardiology. Continue to monitor renal parameters and electrolytes. July 07: Labs reviewed. Electrolyte abnormalities addressed and replaced. Medication list reviewed. Heart rate remains mid 50s. Continue as is. July 06: On ventilator. Full code. Heart rate low. Will discontinue Midodrin. Continue to rest. Electrolytes within normal limit. Discussed with RN. July 05: Remains intubated. Full code. No plan for tracheostomy yet. Labs reviewed. All acceptable. Continue same management July 04: Labs reviewed. Discussed with RN. Potassium and phosphorus and magnesium replacement ordered. Hemoglobin 9.5. Patient remains full code. Continue per consultants. July 03: Lab reviewed. Renal parameters stable. Full code. Intubated. Electrolyte abnormalities addressed and replacement done. July 02: Lab reviewed. Renal parameters stable. Full code. Intubated. Has right side chest tube. Continue per consultants. July 01: Lab reviewed. Renal parameters stable. Full code. Has right chest tube. Planning process for tracheostomy. Defer to chest and general surgeon. June 30: Labs reviewed. Renal parameters stable. Remains full code. Remains on ventilator. Due for tracheostomy tomorrow. Continue per consultants. Patient has a right chest tube in place at this time. June 29: Labs reviewed. Electrolyte imbalances addressed and supplemented. Remains full code and on ventilator. Continue to monitor renal parameters. Continue per consultants. June 28: Labs reviewed. Serum potassium again low today. Potassium supplement IV and through GT given. Patient remains full code and is on ventilator. Continue per consultants. Continue to monitor electrolytes and renal parameters. June 27: Labs reviewed. Abnormal electrolyte addressed. Remains full code. Remains vented. June 26: Day 27 of hospitalization. Full code. Labs reviewed. Hemoglobin down to 7.5. Electrolyte abnormalities addressed and corrections ordered. Co ntinue to monitor renal parameters. Continue per consultants. Start on Levemir for blood sugar management. Questioning continuation of hydrocortisone? June 25: Labs reviewed. Potassium, phosphorus, hemoglobin, are all low. Potassium and phosphorus IV replacement given. Continue to monitor electrolytes and CBC. Patient remains full code. June 24: Lab reviewed. Low phosphorus low magnesium and low potassium was addressed. Hemoglobin drifting lower. Continue per consultants. Patient remains full code. June 23: Labs reviewed. Patient continues to be on ventilator. D5W for high sodium and also potassium chloride intravenously as supplement given. Hemoglobin 8.4. Continue to monitor electrolytes and renal parameters. June 22: Labs reviewed. Low potassium and high sodium noted. Hemoglobin 8.1 stable. Aim to correct abnormal electrolyte. Continue rest. Will give 2 boluses of D5W 500 cc. June 21: Lab reviewed. Abnormal electrolytes noted and addressed. June 20: Labs reviewed. Potassium supplement given. Patient remains full code. Continue per consultants. June 19: Lab reviewed. Electrolyte abnormalities addressed. Continue per pulmonary and ID. June 18: Lab reviewed. Status unchanged. Serum sodium 151 unchanged. Stable from renal standpoint of view. June 17: Labs reviewed. Status quo. D5W 500 cc IV ordered. Continue to monitor renal parameters. June 16: Status quo. Labs reviewed. Overall condition unchanged. Patient was transfused and hemoglobin higher. Continue current management. Patient remains full code. June 15: Status quo. Overall condition poor. Very low albumin. Edematous. Hypotensive. Hemoglobin lower. Anemia work-up ordered. I favor transfusion 2 units of packed RBCs. Patient remains full code. I favor supportive care only. Will discuss. June 14: Electrolyte abnormalities addressed. Serum creatinine lower. Continue per current management. June 13: Status unchanged. Lab reviewed. Serum potassium 2.7. IV potassium chloride ordered. Serum creatinine low at 1.6 stable. Blood pressure 90s systolic June 12: Status quo. Labs reviewed. Renal parameters stable. Serum creatinine down to 1.6. Medication list reviewed. Continues to be on midodrine. Continue per consultants. June 11: Status quo. Labs reviewed. Electrolytes adjusted. Serum creatinine down to 1.8. Continue per consultants. June 10: Status quo. Labs reviewed. Phosphorus supplement IV given. Serum creatinine 2. Continue per consultants. June 09: Requires less pressors. Albumin bolus given. 1 dose of Lasix IV ordered as the patient severely edematous. Patient serum albumin is very low. Continue per consultants. June 08: Continues to be intubated. Labs reviewed. Serum creatinine 1.9 unchanged. Blood pressure more stable. Off 1 of the pressors. Continue to monitor renal parameters. Continue per consultants. Patient now on hydrocortisone 100 mg every 8 hours. Will decrease IV fluid. Normal saline down to 50 cc an hour. June 07: Intubated. Labs reviewed. Creatinine 1.9 unchanged. Continue same treatment plan. Per consultants. Overall poor prognosis since the patient remains on pressors and her pulmonary status is worsening. June 06: Remains intubated. Labs reviewed. Creatinine 1.9. Blood pressure systolic 90s. Continue per consultants. June 05: Remains intubated. Labs reviewed. Serum creatinine lower to 2. Vancomycin level lower. Remains hypotensive on pressors. Will increase midodrine to 10 mg every 8 hours. Continue per consultants. Continue to monitor renal parameters. June 04: Patient now in ICU. Intubated. On pressors. Labs reviewed. Will increase midodrine. Aim to keep blood pressure over 100 systolic. Will give albumin bolus. Will check vancomycin level which was elevated when checked previously on June 01. Will monitor renal parameters. Continue per c onsultants. Subjective ROS Limited/Unobtainable: Yes Objective Objective Last 24 Hour Vital Signs Date Time Temp Pulse Resp B/P (MAP) Pulse Ox O2 Delivery O2 Flow Rate FiO2 07/22/20 12:00 45 07/22/20 12:00 98.1 50 21 104/72 (83) 100 07/22/20 11:13 51 20 45 07/22/20 08:00 Mechanical Ventilator Mechanical Ventilator Mechanical Ventilator 07/22/20 08:00 98.2 59 18 109/54 (72) 100 07/22/20 08:00 45 07/22/20 07:41 50 07/22/20 07:05 50 21 45 07/22/20 04:00 98.9 58 20 117/56 (76) 99 07/22/20 04:00 48 07/22/20 04:00 Mechanical Ventilator Mechanical Ventilator Mechanical Ventilator 07/22/20 04:00 45 07/22/20 03:03 49 20 45 07/22/20 00:25 98.3 53 21 121/60 (80) 100 07/22/20 00:00 Mechanical Ventilator Mechanical Ventilator Mechanical Ventilator 07/22/20 00:00 45 07/22/20 00:00 45 07/21/20 23:00 48 20 45 07/21/20 20:00 45 07/21/20 20:00 97.9 50 18 125/57 (79) 100 07/21/20 20:00 50 07/21/20 20:00 Mechanical Ventilator Mechanical Ventilator Mechanical Ventilator 07/21/20 19:32 53 20 45 07/21/20 16:58 Mechanical Ventilator Mechanical Ventilator Mechanical Ventilator 07/21/20 16:35 45 07/21/20 16:35 Mechanical Ventilator Mechanical Ventilator Mechanical Ventilator 07/21/20 16:00 97.3 48 20 102/54 (70) 100 07/21/20 15:39 53 07/21/20 14:50 50 20 45 Intake and Output 07/21/20 07/22/20 19:00 07:00 Intake Total 1150 ml 850 ml Output Total 1800 ml Balance -650 ml 850 ml Free Water 100 ml 100 ml IV Total 500 ml Tube Feeding 550 ml 750 ml Output Urine Total 1800 ml # Bowel Movements 1 Current Medications Medications (Trade) Dose Ordered Sig/Katy Route PRN Reason Start Time Stop Time Status Last Admin Dose Admin Acetaminophen (Tylenol) 650 mg Q4H PRN GT For Pain 07/01/20 17:15 07/31/20 17:14 07/10/20 17:46 Chlorhexidine Gluconate (Alla-Hex 2%) 1 applic DAILY@1999 TOPIC 06/08/20 20:00 09/06/20 19:59 07/21/20 20:27 Clotrimazole (Lotrimin) 1 applic Q12HR TOPIC 06/07/20 13:00 09/05/20 12:59 07/22/20 09:00 Dextrose (Dextrose 50%) 25 ml Q30M PRN IV Hypoglycemia 06/03/20 11:30 08/28/20 11:29 Dextrose (Dextrose 50%) 50 ml Q30M PRN IV Hypoglycemia 06/03/20 11:30 08/28/20 11:29 Hydrocortisone (Solu-CORTEF) 25 mg Q12H IV 07/17/20 22:00 10/15/20 21:59 07/22/20 10:20 Insulin Aspart (NovoLOG) Q6HR SUBQ 06/26/20 12:00 09/24/20 11:59 07/22/20 06:05 Insulin Detemir (Levemir) 10 units Q12HR SUBQ 06/26/20 10:00 09/24/20 09:59 07/21/20 20:38 Levothyroxine Sodium (Synthroid) 75 mcg DAILY@629 GT 07/08/20 06:30 08/07/20 06:29 07/22/20 06:05 Loperamide HCl (Imodium) 2 mg Q6H PRN NG Diarrhea 06/24/20 10:30 07/24/20 10:29 07/01/20 11:41 Pantoprazole (Protonix) 40 mg EVERY 12 HOURS IVP 07/06/20 21:00 08/05/20 20:59 07/22/20 08:57 Potassium Chloride (K-Dur) 40 meq EVERY 12 HOURS GT 07/04/20 21:00 09/26/20 12:14 07/22/20 08:57 Laboratory Tests 07/21/20 16:16: POC Whole Blood Glucose [Pending] 07/21/20 20:36: POC Whole Blood Glucose 133H 07/22/20 00:08: POC Whole Blood Glucose 156H 07/22/20 04:00: White Blood Count 7.5, Red Blood Count 2.29L, Hemoglobin 7.1L, Hematocrit 21.7L, Mean Corpuscular Volume 95, Mean Corpuscular Hemoglobin 31.0, Mean Corpuscular Hemoglobin Concent 32.7, Red Cell Distribution Width 17.6H, Platelet Count 94L, Mean Platelet Volume 9.4, Neutrophils (%) (Auto) , Lymphocytes (%) (Auto) , Monocytes (%) (Auto) , Eosinophils (%) (Auto) , Basophils (%) (Auto) , Differential Total Cells Counted 100, Neutrophils % (Manual) 67, Lymphocytes % (Manual) 26, Monocytes % (Manual) 5, Eosinophils % (Manual) 1, Basophils % (Manual) 0, Band Neutrophils 1, Platelet Estimate DecreasedL, Platelet Morphology Normal, Anisocytosis 1+, Sodium Level 143, Potassium Level 3.9, Chloride Level 111H, Carbon Dioxide Level 26, Anion Gap 6, Blood Urea Nitrogen 15, Creatinine 0.5L, Estimat Glomerular Filtration Rate > 60, Glucose Level 177H , Calcium Level 7.3L 07/22/20 05:24: POC Whole Blood Glucose [Pending] 07/22/20 08:55: POC Whole Blood Glucose 92 07/22/20 11:44: POC Whole Blood Glucose 108H 07/22/20 12:25: POC Whole Blood Glucose 123H Height (Feet): 5 Height (Inches): 3.00 Weight (Pounds): 173 General Appearance: no apparent distress EENT: other - Trach to vent Cardiovascular: normal rate Respiratory/Chest: decreased breath sounds Abdomen: distended Keron Pitt MD Jul 22, 2020 12:38
--- NOTE | 2020-07-22 12:53 | Internal Med Progress Note ---
Subjective Date of Service: Jul 22, 2020 Physician Name Joni Copeland Attending Physician Elayne Allred MD Current Medications Medications (Trade) Dose Ordered Sig/Katy Route PRN Reason Start Time Stop Time Status Last Admin Dose Admin Acetaminophen (Tylenol) 650 mg Q4H PRN GT For Pain 07/01/20 17:15 07/31/20 17:14 07/10/20 17:46 Chlorhexidine Gluconate (Alla-Hex 2%) 1 applic DAILY@2000 TOPIC 06/08/20 20:00 09/06/20 19:59 07/21/20 20:27 Clotrimazole (Lotrimin) 1 applic Q12HR TOPIC 06/07/20 13:00 09/05/20 12:59 07/22/20 09:00 Dextrose (Dextrose 50%) 25 ml Q30M PRN IV Hypoglycemia 06/03/20 11:30 08/28/20 11:29 Dextrose (Dextrose 50%) 50 ml Q30M PRN IV Hypoglycemia 06/03/20 11:30 08/28/20 11:29 Hydrocortisone (Solu-CORTEF) 25 mg Q12H IV 07/17/20 22:00 10/15/20 21:59 07/22/20 10:20 Insulin Aspart (NovoLOG) Q6HR SUBQ 06/26/20 12:00 09/24/20 11:59 07/22/20 06:05 Insulin Detemir (Levemir) 10 units Q12HR SUBQ 06/26/20 10:00 09/24/20 09:59 07/21/20 20:38 Levothyroxine Sodium (Synthroid) 75 mcg DAILY@0630 GT 07/08/20 06:30 08/07/20 06:29 07/22/20 06:05 Loperamide HCl (Imodium) 2 mg Q6H PRN NG Diarrhea 06/24/20 10:30 07/24/20 10:29 07/01/20 11:41 Pantoprazole (Protonix) 40 mg EVERY 12 HOURS IVP 07/06/20 21:00 08/05/20 20:59 07/22/20 08:57 Potassium Chloride (K-Dur) 40 meq EVERY 12 HOURS GT 07/04/20 21:00 09/26/20 12:14 07/22/20 08:57 Allergies: Coded Allergies: No Known Allergies (Unverified , 10/16/18) ROS Limited/Unobtainable: Yes Subjective 59 YO F with Down's syndrome admitted with hypoxia. Now sepsis and pneumonia. Cover for Int Med-[facility]. Step Down Unit Objective Last Vital Signs Date Time Temp Pulse Resp B/P (MAP) Pulse Ox O2 Delivery O2 Flow Rate FiO2 07/22/20 12:00 45 07/22/20 12:00 Mechanical Ventilator Mechanical Ventilator Mechanical Ventilator 07/22/20 12:00 98.1 50 21 104/72 (83) 100 Laboratory Tests Test 07/21/20 16:16 07/21/20 20:36 07/22/20 00:08 07/22/20 04:00 POC Whole Blood Glucose Pending 133 MG/DL (74-106) H 156 MG/DL (74-106) H White Blood Count 7.5 K/UL (4.8-10.8) Red Blood Count 2.29 M/UL (4.20-5.40) L Hemoglobin 7.1 G/DL (12.0-16.0) L Hematocrit 21.7 % (37.0-47.0) L Mean Corpuscular Volume 95 FL (80-99) Mean Corpuscular Hemoglobin 31.0 PG (27.0-31.0) Mean Corpuscular Hemoglobin Concent 32.7 G/DL (32.0-36.0) Red Cell Distribution Width 17.6 % (11.6-14.8) H Platelet Count 94 K/UL (150-450) L Mean Platelet Volume 9.4 FL (6.5-10.1) Neutrophils (%) (Auto) % (45.0-75.0) Lymphocytes (%) (Auto) % (20.0-45.0) Monocytes (%) (Auto) % (1.0-10.0) Eosinophils (%) (Auto) % (0.0-3.0) Basophils (%) (Auto) % (0.0-2.0) Differential Total Cells Counted 100 Neutrophils % (Manual) 67 % (45-75) Lymphocytes % (Manual) 26 % (20-45) Monocytes % (Manual) 5 % (1-10) Eosinophils % (Manual) 1 % (0-3) Basophils % (Manual) 0 % (0-2) Band Neutrophils 1 % (0-8) Platelet Estimate Decreased L Platelet Morphology Normal Anisocytosis 1+ Sodium Level 143 MMOL/L (136-145) Potassium Level 3.9 MMOL/L (3.5-5.1) Chloride Level 111 MMOL/L (98-107) H Carbon Dioxide Level 26 MMOL/L (21-32) Anion Gap 6 mmol/L (5-15) Blood Urea Nitrogen 15 mg/dL (7-18) Creatinine 0.5 MG/DL (0.55-1.30) L Estimat Glomerular Filtration Rate > 60 mL/min (>60) Glucose Level 177 MG/DL (74-106) H Calcium Level 7.3 MG/DL (8.5-10.1) L Test 07/22/20 05:24 07/22/20 08:55 07/22/20 11:44 07/22/20 12:25 POC Whole Blood Glucose Pending 92 MG/DL (74-106) 108 MG/DL (74-106) H 123 MG/DL (74-106) H Intake and Output 07/21/20 07/22/20 19:00 07:00 Intake Total 1150 ml 850 ml Output Total 1800 ml Balance -650 ml 850 ml Free Water 100 ml 100 ml IV Total 500 ml Tube Feeding 550 ml 750 ml Output Urine Total 1800 ml # Bowel Movements 1 Objective General Appearance: WD/WN, no apparent distress, alert EENT: PERRL/EOMI, normal ENT inspection Neck: non-tender, normal alignment, supple, normal inspection Cardiovascular: normal peripheral pulses, normal rate, regular rhythm, no gallop/murmur, no JVD Respiratory/Chest: Mech vent; decreased breath sounds, crackles/rales, rhonchi - bilaterally, expiratory wheezing Abdomen: normal bowel sounds, non tender, soft, no organomegaly, no mass Extremities: normal range of motion Neurologic: alignment mechanic II-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 S/P amikacin per ID=Dr Camejo. Pulmonary/Critical care=DR Allred. COVID NEG (2) Sepsis Assessment & Plan: Staph haemolyticus. S/P amikacin per ID=Dr Camejo (3) Down's syndrome (4) Dysphagia Assessment & Plan: S/P PEG (5) Seizure disorder Assessment & Plan: Continue keppra and depakote (6) Hypothyroidism Assessment & Plan: Continue synthroid (7) Acute respiratory failure Assessment & Plan: Pulmonary = Dr Allred; [facility] vent (8) Pneumothorax, right Assessment & Plan: Continue chest tube per pulmonary (9) Cardiac arrest Assessment & Plan: 06/03/20-see cardiology note=Dr Pantoja (10) Severe anemia Assessment & Plan: S/P transfusion 4 units PRBC Joni Copeland MD Jul 22, 2020 12:53
--- NOTE | 2020-07-22 13:55 | NUR ---
NURSE NOTES: Blood transfusion completed. Patient is stable , vital signs wnl. No allergic reaction noted.
[2020-07-22] MEDS ORDERED: 1/2 NS 1000ml IV ONE (14:06)
[2020-07-22 16:00] VITALS: BP 114/61
--- NOTE | 2020-07-22 16:54 | Surgery Progress Note ---
Surgery Progress Note Subjective Procedure Performed removal left chest tube Additional Comments chest tube out comfortable no n/v labs okay cxr noted and reviewed Objective Last 24 Hour Vital Signs Date Time Temp Pulse Resp B/P (MAP) Pulse Ox O2 Delivery O2 Flow Rate FiO2 07/22/20 16:00 45 07/22/20 16:00 Mechanical Ventilator Mechanical Ventilator Mechanical Ventilator 07/22/20 16:00 98.1 60 19 114/61 (78) 98 07/22/20 15:13 70 07/22/20 12:00 45 07/22/20 12:00 Mechanical Ventilator Mechanical Ventilator Mechanical Ventilator 07/22/20 12:00 98.1 50 21 104/72 (83) 100 07/22/20 11:44 48 07/22/20 11:13 51 20 45 07/22/20 08:00 Mechanical Ventilator Mechanical Ventilator Mechanical Ventilator 07/22/20 08:00 98.2 59 18 109/54 (72) 100 07/22/20 08:00 45 07/22/20 07:41 50 07/22/20 07:05 50 21 45 07/22/20 04:00 98.9 58 20 117/56 (76) 99 07/22/20 04:00 48 07/22/20 04:00 Mechanical Ventilator Mechanical Ventilator Mechanical Ventilator 07/22/20 04:00 45 07/22/20 03:03 49 20 45 07/22/20 00:25 98.3 53 21 121/60 (80) 100 07/22/20 00:00 Mechanical Ventilator Mechanical Ventilator Mechanical Ventilator 07/22/20 00:00 45 07/22/20 00:00 45 07/21/20 23:00 48 20 45 07/21/20 20:00 45 07/21/20 20:00 97.9 50 18 125/57 (79) 100 07/21/20 20:00 50 07/21/20 20:00 Mechanical Ventilator Mechanical Ventilator Mechanical Ventilator 07/21/20 19:32 53 20 45 07/21/20 16:58 Mechanical Ventilator Mechanical Ventilator Mechanical Ventilator I&O Intake and Output 07/21/20 07/22/20 19:00 07:00 Intake Total 1150 ml 850 ml Output Total 1800 ml Balance -650 ml 850 ml Free Water 100 ml 100 ml IV Total 500 ml Tube Feeding 550 ml 750 ml Output Urine Total 1800 ml # Bowel Movements 1 Dressing: saturated Cardiovascular: RSR Respiratory: decreased breath sounds Abdomen: non-tender, present bowel sounds Extremities: no edema, no tenderness, no cyanosis Laboratory Tests Test 07/21/20 20:36 07/22/20 00:08 07/22/20 04:00 07/22/20 05:24 POC Whole Blood Glucose 133 MG/DL (74-106) H 156 MG/DL (74-106) H Pending White Blood Count 7.5 K/UL (4.8-10.8) Red Blood Count 2.29 M/UL (4.20-5.40) L Hemoglobin 7.1 G/DL (12.0-16.0) L Hematocrit 21.7 % (37.0-47.0) L Mean Corpuscular Volume 95 FL (80-99) Mean Corpuscular Hemoglobin 31.0 PG (27.0-31.0) Mean Corpuscular Hemoglobin Concent 32.7 G/DL (32.0-36.0) Red Cell Distribution Width 17.6 % (11.6-14.8) H Platelet Count 94 K/UL (150-450) L Mean Platelet Volume 9.4 FL (6.5-10.1) Neutrophils (%) (Auto) % (45.0-75.0) Lymphocytes (%) (Auto) % (20.0-45.0) Monocytes (%) (Auto) % (1.0-10.0) Eosinophils (%) (Auto) % (0.0-3.0) Basophils (%) (Auto) % (0.0-2.0) Differential Total Cells Counted 100 Neutrophils % (Manual) 67 % (45-75) Lymphocytes % (Manual) 26 % (20-45) Monocytes % (Manual) 5 % (1-10) Eosinophils % (Manual) 1 % (0-3) Basophils % (Manual) 0 % (0-2) Band Neutrophils 1 % (0-8) Platelet Estimate Decreased L Platelet Morphology Normal Anisocytosis 1+ Sodium Level 143 MMOL/L (136-145) Potassium Level 3.9 MMOL/L (3.5-5.1) Chloride Level 111 MMOL/L (98-107) H Carbon Dioxide Level 26 MMOL/L (21-32) Anion Gap 6 mmol/L (5-15) Blood Urea Nitrogen 15 mg/dL (7-18) Creatinine 0.5 MG/DL (0.55-1.30) L Estimat Glomerular Filtration Rate > 60 mL/min (>60) Glucose Level 177 MG/DL (74-106) H Calcium Level 7.3 MG/DL (8.5-10.1) L Test 07/22/20 08:55 07/22/20 11:44 07/22/20 12:25 POC Whole Blood Glucose 92 MG/DL (74-106) 108 MG/DL (74-106) H 123 MG/DL (74-106) H Plan Problems: (1) Respiratory distress Assessment & Plan: Respiratory insufficiency requiring prolonged ventilator support. Patient on minimal vent settings right now currently in stable but unfortunately not safe for extubation. Tracheostomy is indicated recommended. I discussed case with pulmonology team ICU team medical teams. Patient unable to make decisions and her current condition and given her history. The care team has been contacted and will be reviewed for evaluation and consideration of the tracheostomy. If consented I think it is reasonable for tracheostomy given patient's current CODE STATUS care plan and goals of care. Extubation his current status is potentially high risk for reintubation emergency complication. We will plan for tracheostomy if consent is obtained. Thank you for let me participate patient's care will follow with recommendations will plan for trach when ready wean fi02 s/p trach 10?8 (2) Encephalopathy chronic (3) Dysphagia (4) Down's syndrome (5) Sepsis (6) Acute respiratory failure (7) Pneumonia (8) Trisomy 21, Down syndrome (9) LEANN (acute kidney injury) (10) Bacteremia (11) Hypokalemia (12) Anemia (13) Diarrhea (14) Hypernatremia (15) Pneumothorax (16) Pneumothorax, right Assessment & Plan: right ptx. s/p chest tube tube removed 07/11 left ptx tube placed 07/[address] to water seal chest tube removed 07/20 (17) Cardiac arrest (18) ARDS (adult respiratory distress syndrome) (19) Septic shock (20) HCAP (healthcare-associated pneumonia) (21) Respiratory failure requiring intubation (22) Seizure disorder (23) Hypothyroidism Mark Gordon Jul 22, 2020 16:54
--- NOTE | 2020-07-22 17:00 | NUR ---
NURSE NOTES: Bed bath given pt with large BM to formed brown stools,kept dry and clean,pulled up and repositioned to sides.
--- NOTE | 2020-07-22 18:59 | NUR ---
NURSE HAND-OFF REPORT: Important Events on Shift:Blood transfusion 1 unit PRBC given for H?H 7.11/04.1 Patient Status: stable Diet: Vital AF1,2 at 50 ml/hr GT Pending Orders: N/A Pending Results/Labs:N/A Pending MD notification:N/A Latest Vital Signs: Temperature 98.1 , Pulse 60 , B/P 114 /61 , Respiratory Rate 19 , O2 SAT 98 , Mechanical Ventilator, O2 Flow Rate 15.0 . Vital Sign Comment: stable EKG Rhythm: Sinus Bradycardia Rhythm change?: N Notified?: Marce Oliveros MD Response: No New Orders Received Latest Osorio Fall Score: 70 Fall Risk: High Risk Safety Measures: Call light Within Reach, Bed Alarm Zone 1, Side Rails Side Rails x3, Bed position Low and Locked. Fall Precautions: Yellow Socks Report given to Vitor Fuller RN..
--- NOTE | 2020-07-22 19:04 | NUR ---
NURSE NOTES: Received report from Sheyla Davis and Mina Davis, pt. in bed awake- with eyes open, no signs or symptoms of acute cardiac or respiratory distress noted, bed alarm on, side rails up x's 3 and safety brakes engaged, bed locked in position, pt. appears to be sating well on current vent settings well- AC 20, TV 500, Fio2 at 45% and peep 5- no distress noted, pt. appears to be tolerating Vital AF 1.2 at 50cc/hr- no residual noted, Gregorio intact and draining to gravity, side rails padded for seizure precautions- no seizure activity noted- upon assessment, pt. appears clean and dry, JODY PICC intact and patent- TKO, safety measures continued, Aspiration precautions observed, skin precautions observed, will continue with plan of care. Addendum: 07/23/20 at 0408 by CHRISTOPH VERONICA RN RN correction to message above to vent settings- pt. has no peep.
[2020-07-22 20:00] VITALS: BP 101/50
--- NOTE | 2020-07-22 20:00 | NUR ---
NURSE NOTES: during body assessment noted pt. to have swollen labia to left side- will continue to monitor pt. and with plan of care.
[2020-07-22] MEDS: Dyna-Hex 2% Top Sol 2oz TOPIC SCH (20:26)
[2020-07-23] VITALS: BP 118/69
--- NOTE | 2020-07-23 00:30 | NUR ---
NURSE NOTES: bed bath given and linens changed, oral provided- pt. appears to be tolerating current feeding- no residual noted- appears to be tolerating current vent settings well - no distress noted- side rails padded for seizure precautions- HOB elevated- aspiration precautions observed- skin precautions observed- will continue to monitor pt. and with plan of care.
[2020-07-23 04:00] VITALS: BP 132/76
[2020-07-23] MEDS: NovoLOG Insulin Flexpen SUBQ SCH ×3 (05:13→18:00)
[2020-07-23 05:39] LABS: BASOPHILS % (AUTO) 0.4 % (0.0-2.0); EOSINOPHILS % (AUTO) 0.9 % (0.0-3.0); HEMOGLOBIN 8.8 G/DL (12.0-16.0); MEAN CORPUSCULAR VOLUME 92 FL (80-99); MONOCYTES % (AUTO) 5.4 % (1.0-10.0); NEUTROPHILS % (AUTO) 54.3 % (45.0-75.0); PLATELET COUNT 101 K/UL (150-450); RED BLOOD COUNT 2.84 M/UL (4.20-5.40); RED CELL DISTRIBUTION WIDTH 17.7 % (11.6-14.8); WHITE BLOOD COUNT 8.5 K/UL (4.8-10.8)
[2020-07-23 06:08] LABS: ALANINE AMINOTRANSFERASE 36 U/L (12-78); ALBUMIN 1.4 G/DL (3.4-5.0); ALBUMIN/GLOBULIN RATIO 0.4 (1.0-2.7); ALKALINE PHOSPHATASE 75 U/L (46-116); ANION GAP 5 mmol/L (5-15); ASPARTATE AMINO TRANSFERASE 24 U/L (15-37); BILIRUBIN,TOTAL 0.4 MG/DL (0.2-1.0); BLOOD UREA NITROGEN 16 mg/dL (7-18); CALCIUM 7.2 MG/DL (8.5-10.1); CARBON DIOXIDE 28 MMOL/L (21-32); CHLORIDE 110 MMOL/L (98-107); CREATININE 0.6 MG/DL (0.55-1.30); POTASSIUM 3.8 MMOL/L (3.5-5.1); SODIUM 143 MMOL/L (136-145)
--- NOTE | 2020-07-23 07:06 | NUR ---
NURSE HAND-OFF REPORT: Important Events on Shift:none Patient Status: fair Diet: Vital AF 1.2 Pending Orders: Pending Results/Labs: Pending MD notification: Latest Vital Signs: Temperature 97.9 , Pulse 59 , B/P 132 /76 , Respiratory Rate 20 , O2 SAT 100 , Mechanical Ventilator, O2 Flow Rate 15.0 . Vital Sign Comment: EKG Rhythm: Sinus Bradycardia Rhythm change?: N MD Notified?: N - MD Response: Latest Osorio Fall Score: 70 Fall Risk: High Risk Safety Measures: Call light Within Reach, Bed Alarm Zone 1, Side Rails Side Rails x3, Bed position Low and Locked. Fall Precautions: Yellow Socks Report given to Susan Bland- pt. remains stable and no signs of distress noted- aware to f/u on any abnormal am labs.
[2020-07-23 08:00] VITALS: BP 114/62
--- NOTE | 2020-07-23 08:00 | NUR ---
NURSE NOTES: Pt noted asleep no resp distress presented.
--- NOTE | 2020-07-23 08:28 | NUR ---
RADIOLOGY DEPT., CHEST X-RAY PERFORMED.-P.DYE
[2020-07-23 09:11] LABS: PHOSPHORUS 2.9 MG/DL (2.5-4.9)
[2020-07-23] MEDS: Pantoprazole Inj IVP SCH ×2 (09:20→20:09)
[2020-07-23] MEDS: Levemir Flexpen SUBQ SCH ×2 (09:23→20:08)
[2020-07-23] MEDS: Hydrocortisone 100mg Inj IV SCH ×2 (09:31→21:14)
--- NOTE | 2020-07-23 09:33 | NUR ---
RD ASSESSMENT & RECOMMENDATIONS SEE CARE ACTIVITY FOR COMPLETE ASSESSMENT DAILY ESTIMATED NEEDS: Needs based on CRITICAL CARE, 50kg 22-28 kcals/kg 9114-2684 total kcals 1.25-2 g protein/kg 63-100 g total protein 25-30 mL/kg 1909-2653 total fluid mLs NUTRITION DIAGNOSIS: Swallowing difficulty r/t dysphagia as evidenced by pt w/ Downs Syndrome, PEG dep for all nutritional needs, now intubated, off pressor support pending trach placement. CURRENT TF:Vital AF 1.2 @ 50ml/hr x 22 hrs (On Synthroid QD)- held for procedure ENTERAL NUTRITION RECOMMENDATIONS: Glucerna 1.2 @ 50ml/hr x 22 hrs to provide 1100ml, 1320 kcal, 66g prot, 886ml free wa ter * Rec TF change to Glucerna 1.2 for carb control formula. Start @30ml/hr, advance as tolerated to goal. * Hold 1 hr before and after Synthroid med * HOB over 30 degrees/ water flush per MD ADDITIONAL RECOMMENDATIONS: 1) Ht of 61 inches per SNF; recalibrate bed scale for accurate CBW 2) Add NISS: BGs elevated on Solucortef-> NOW ON NISS + LEVEMIR 3) Monitor hemodynamic stability: OFF PRESSOR SUPPORT 4) Wound healing: add Vit C 250mg QD + continue [place] BID 5) Monitor lytes, replete as needed (lytes wnl) 6) Probiotics for diarrhea -> none noted .
--- NOTE | 2020-07-23 11:07 | NUR ---
NURSE NOTES: Report received from Vitor Fuller RN.Pt sleeping quietly in bed ,noted no resp distress with trach tube to vent ,ordered vent settings tolerated,GTF Vital AF1.2 at 50 ml/hr ,no residual noted,Gregorio cath draining yellow urine,skin warm and dry , IV site to JODY PICC line intact and drsg is clean and updated, SR up x2 HOB elevated ,bed lock in lowest position,will continue with plans of care.
--- NOTE | 2020-07-23 11:39 | Pulmonolgy Critical Care Note ---
Critical Care - Asmt/Plan Problems: (1) Acute respiratory failure (2) Pneumothorax (3) Bacteremia (4) Pneumonia (5) Sepsis (6) HCAP (healthcare-associated pneumonia) (7) Seizure disorder (8) Down's syndrome (9) Trisomy 21, Down syndrome Respiratory: monitor respiratory rate, adjust FIO2, CXR Cardiac: continue to monitor HR/BP Renal: F/U I&O, keep IV fluid, check electrolytes Infectious Disease: check cultures, continue antibiotics Gastrointestinal: continue feedings/current rate Endocrine: continue sliding scale insulin Hematologic: monitor H/H, transfuse if hgb<8.5 Neurologic: PRN Ativan, keep patient comfortable Affect: PRN ativan Prophylaxis: Protonix Time Spent (Minutes): 40 Notes Reviewed: biodiesel engine specialist, cardio, 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 with: nurses, consultants, telehealth case managerlegal manager - Objective Last 24 Hour Vital Signs Date Time Temp Pulse Resp B/P (MAP) Pulse Ox O2 Delivery O2 Flow Rate FiO2 07/23/20 11:29 49 20 45 07/23/20 08:00 98.1 50 20 114/62 (79) 98 07/23/20 08:00 45 07/23/20 08:00 Mechanical Ventilator Mechanical Ventilator Mechanical Ventilator 07/23/20 07:46 60 07/23/20 07:08 54 20 45 07/23/20 04:00 Mechanical Ventilator Mechanical Ventilator Mechanical Ventilator 07/23/20 04:00 97.9 59 20 132/76 (94) 100 07/23/20 04:00 45 07/23/20 03:27 47 07/23/20 02:56 45 20 45 07/23/20 00:00 Mechanical Ventilator Mechanical Ventilator Mechanical Ventilator 07/23/20 00:00 45 07/23/20 00:00 98.1 53 20 118/69 (85) 99 07/22/20 23:34 48 07/22/20 23:15 59 22 45 07/22/20 20:00 45 07/22/20 20:00 Mechanical Ventilator Mechanical Ventilator Mechanical Ventilator 07/22/20 20:00 98.1 48 18 101/50 (67) 99 07/22/20 19:10 42 20 45 07/22/20 19:04 48 07/22/20 16:00 45 07/22/20 16:00 Mechanical Ventilator Mechanical Ventilator Mechanical Ventilator 07/22/20 16:00 98.1 60 19 114/61 (78) 98 07/22/20 15:13 70 07/22/20 15:09 49 20 45 07/22/20 12:01 Mechanical Ventilator Mechanical Ventilator Mechanical Ventilator 07/22/20 12:00 45 07/22/20 12:00 98.1 50 21 104/72 (83) 100 07/22/20 11:44 48 Status: awake Condition: critical, improving HEENT: atraumatic Neck: trach Lungs: rales, rhonchi Heart: HR/BP stable Abdomen: soft, non-tender, active bowel sounds Extremities: no C/C/E Accucheck: 122 Critical Care - Subjective ROS Limited/Unobtainable: Yes Interval Events: comfortable Condition: critical EKG Rhythm: Sinus Rhythm FI02: 45 Vent Support Breath Rate: 20 Vent Support Mode: AC Vent Tidal Volume: 500 Sputum Amount: Moderate PEEP: 0.0 PIP: 33 Tube Feeding Amount: 25 I&O: Intake and Output 07/22/20 07/23/20 19:00 07:00 Intake Total 1120 ml 600 ml Output Total 2300 ml 625 ml Balance -1180 ml -25 ml Free Water 200 ml 100 ml Tube Feeding 550 ml 500 ml Blood Product 250 ml Other 120 ml Output Urine Total 2300 ml 625 ml # Bowel Movements 1 1 CXR: extensive infiltrate present, trach intact ET-Tube: 7.5 ET Position: 23 Labs: Laboratory Tests Test 07/22/20 11:44 07/22/20 12:25 07/22/20 17:13 07/22/20 20:17 POC Whole Blood Glucose 108 MG/DL (74-106) H 123 MG/DL (74-106) H 141 MG/DL (74-106) H Pending Test 07/22/20 23:34 07/23/20 04:00 07/23/20 05:11 POC Whole Blood Glucose Pending Pending White Blood Count 8.5 K/UL (4.8-10.8) Red Blood Count 2.84 M/UL (4.20-5.40) L Hemoglobin 8.8 G/DL (12.0-16.0) L Hematocrit 26.0 % (37.0-47.0) L Mean Corpuscular Volume 92 FL (80-99) Mean Corpuscular Hemoglobin 31.0 PG (27.0-31.0) Mean Corpuscular Hemoglobin Concent 33.9 G/DL (32.0-36.0) Red Cell Distribution Width 17.7 % (11.6-14.8) H Platelet Count 101 K/UL (150-450) L Mean Platelet Volume 9.4 FL (6.5-10.1) Neutrophils (%) (Auto) 54.3 % (45.0-75.0) Lymphocytes (%) (Auto) 39.0 % (20.0-45.0) Monocytes (%) (Auto) 5.4 % (1.0-10.0) Eosinophils (%) (Auto) 0.9 % (0.0-3.0) Basophils (%) (Auto) 0.4 % (0.0-2.0) Sodium Level 143 MMOL/L (136-145) Potassium Level 3.8 MMOL/L (3.5-5.1) Chloride Level 110 MMOL/L (98-107) H Carbon Dioxide Level 28 MMOL/L (21-32) Anion Gap 5 mmol/L (5-15) Blood Urea Nitrogen 16 mg/dL (7-18) Creatinine 0.6 MG/DL (0.55-1.30) Estimat Glomerular Filtration Rate > 60 mL/min (>60) Glucose Level 132 MG/DL (74-106) H Calcium Level 7.2 MG/DL (8.5-10.1) L Phosphorus Level 2.9 MG/DL (2.5-4.9) Magnesium Level 1.9 MG/DL (1.8-2.4) Total Bilirubin 0.4 MG/DL (0.2-1.0) Aspartate Amino Transf (AST/SGOT) 24 U/L (15-37) Alanine Aminotransferase (ALT/SGPT) 36 U/L (12-78) Alkaline Phosphatase 75 U/L (46-116) Pro-B-Type Natriuretic Peptide 988 pg/mL (0-125) H Total Protein 4.8 G/DL (6.4-8.2) L Albumin 1.4 G/DL (3.4-5.0) L Globulin 3.4 g/dL Albumin/Globulin Ratio 0.4 (1.0-2.7) L Elayne Allred MD Jul 23, 2020 11:39
--- NOTE | 2020-07-23 11:40 | Surgery Progress Note ---
Surgery Progress Note Subjective Procedure Performed removal left chest tube Additional Comments no acute events cxr done pending upload and results labs okay comfortable appearing Objective Last 24 Hour Vital Signs Date Time Temp Pulse Resp B/P (MAP) Pulse Ox O2 Delivery O2 Flow Rate FiO2 07/23/20 11:29 49 20 45 07/23/20 08:00 98.1 50 20 114/62 (79) 98 07/23/20 08:00 45 07/23/20 08:00 Mechanical Ventilator Mechanical Ventilator Mechanical Ventilator 07/23/20 07:46 60 07/23/20 07:08 54 20 45 07/23/20 04:00 Mechanical Ventilator Mechanical Ventilator Mechanical Ventilator 07/23/20 04:00 97.9 59 20 132/76 (94) 100 07/23/20 04:00 45 07/23/20 03:27 47 07/23/20 02:56 45 20 45 07/23/20 00:00 Mechanical Ventilator Mechanical Ventilator Mechanical Ventilator 07/23/20 00:00 45 07/23/20 00:00 98.1 53 20 118/69 (85) 99 07/22/20 23:34 48 07/22/20 23:15 59 22 45 07/22/20 20:00 45 07/22/20 20:00 Mechanical Ventilator Mechanical Ventilator Mechanical Ventilator 07/22/20 20:00 98.1 48 18 101/50 (67) 99 07/22/20 19:10 42 20 45 07/22/20 19:04 48 07/22/20 16:00 45 07/22/20 16:00 Mechanical Ventilator Mechanical Ventilator Mechanical Ventilator 07/22/20 16:00 98.1 60 19 114/61 (78) 98 07/22/20 15:13 70 07/22/20 15:09 49 20 45 07/22/20 12:01 Mechanical Ventilator Mechanical Ventilator Mechanical Ventilator 07/22/20 12:00 45 07/22/20 12:00 98.1 50 21 104/72 (83) 100 07/22/20 11:44 48 I&O Intake and Output 07/22/20 07/23/20 19:00 07:00 Intake Total 1120 ml 600 ml Output Total 2300 ml 625 ml Balance -1180 ml -25 ml Free Water 200 ml 100 ml Tube Feeding 550 ml 500 ml Blood Product 250 ml Other 120 ml Output Urine Total 2300 ml 625 ml # Bowel Movements 1 1 Dressing: saturated Cardiovascular: RSR Respiratory: decreased breath sounds Abdomen: soft, non-tender, present bowel sounds Extremities: no tenderness, no cyanosis Laboratory Tests Test 07/22/20 11:44 07/22/20 12:25 07/22/20 17:13 07/22/20 20:17 POC Whole Blood Glucose 108 MG/DL (74-106) H 123 MG/DL (74-106) H 141 MG/DL (74-106) H Pending Test 07/22/20 23:34 07/23/20 04:00 07/23/20 05:11 POC Whole Blood Glucose Pending Pending White Blood Count 8.5 K/UL (4.8-10.8) Red Blood Count 2.84 M/UL (4.20-5.40) L Hemoglobin 8.8 G/DL (12.0-16.0) L Hematocrit 26.0 % (37.0-47.0) L Mean Corpuscular Volume 92 FL (80-99) Mean Corpuscular Hemoglobin 31.0 PG (27.0-31.0) Mean Corpuscular Hemoglobin Concent 33.9 G/DL (32.0-36.0) Red Cell Distribution Width 17.7 % (11.6-14.8) H Platelet Count 101 K/UL (150-450) L Mean Platelet Volume 9.4 FL (6.5-10.1) Neutrophils (%) (Auto) 54.3 % (45.0-75.0) Lymphocytes (%) (Auto) 39.0 % (20.0-45.0) Monocytes (%) (Auto) 5.4 % (1.0-10.0) Eosinophils (%) (Auto) 0.9 % (0.0-3.0) Basophils (%) (Auto) 0.4 % (0.0-2.0) Sodium Level 143 MMOL/L (136-145) Potassium Level 3.8 MMOL/L (3.5-5.1) Chloride Level 110 MMOL/L (98-107) H Carbon Dioxide Level 28 MMOL/L (21-32) Anion Gap 5 mmol/L (5-15) Blood Urea Nitrogen 16 mg/dL (7-18) Creatinine 0.6 MG/DL (0.55-1.30) Estimat Glomerular Filtration Rate > 60 mL/min (>60) Glucose Level 132 MG/DL (74-106) H Calcium Level 7.2 MG/DL (8.5-10.1) L Phosphorus Level 2.9 MG/DL (2.5-4.9) Magnesium Level 1.9 MG/DL (1.8-2.4) Total Bilirubin 0.4 MG/DL (0.2-1.0) Aspartate Amino Transf (AST/SGOT) 24 U/L (15-37) Alanine Aminotransferase (ALT/SGPT) 36 U/L (12-78) Alkaline Phosphatase 75 U/L (46-116) Pro-B-Type Natriuretic Peptide 988 pg/mL (0-125) H Total Protein 4.8 G/DL (6.4-8.2) L Albumin 1.4 G/DL (3.4-5.0) L Globulin 3.4 g/dL Albumin/Globulin Ratio 0.4 (1.0-2.7) L Plan Problems: (1) Respiratory distress Assessment & Plan: Respiratory insufficiency requiring prolonged ventilator support. Patient on minimal vent settings right now currently in stable but unfortunately not safe for extubation. Tracheostomy is indicated recommended. I discussed case with pulmonology team ICU team medical teams. Patient unable to make decisions and her current condition and given her history. The care team has been contacted and will be reviewed for evaluation and consideration of the tracheostomy. If consented I think it is reasonable for tracheostomy given patient's current CODE STATUS care plan and goals of care. Extubation his current status is potentially high risk for reintubation emergency complication. We will plan for tracheostomy if consent is obtained. Thank you for let me participate patient's care will follow with recommendations will plan for trach when ready wean fi02 s/p trach 10?8 (2) Encephalopathy chronic (3) Dysphagia (4) Down's syndrome (5) Sepsis Assessment & Plan: DAILY ESTIMATED NEEDS: Needs based on CRITICAL CARE, 50kg 22-28 kcals/kg 1513-3444 total kcals 1.25-2 g protein/kg 63-100 g total protein 25-30 mL/kg 2314-2667 total fluid mLs NUTRITION DIAGNOSIS: Swallowing difficulty r/t dysphagia as evidenced by pt w/ Downs Syndrome, PEG dep for all nutritional needs, now intubated, off pressor support pending trach placement. CURRENT TF:Vital AF 1.2 @ 50ml/hr x 22 hrs (On Synthroid QD)- held for procedure ENTERAL NUTRITION RECOMMENDATIONS: Glucerna 1.2 @ 50ml/hr x 22 hrs to provide 1100ml, 1320 kcal, 66g prot, 886ml free wa ter * Rec TF change to Glucerna 1.2 for carb control formula. Start @30ml/hr, advance as tolerated to goal. * Hold 1 hr before and after Synthroid med * HOB over 30 degrees/ water flush per MD ADDITIONAL RECOMMENDATIONS: 1) Ht of 61 inches per SNF; recalibrate bed scale for accurate CBW 2) Add NISS: BGs elevated on Solucortef-> NOW ON NISS + LEVEMIR 3) Monitor hemodynamic stability: OFF PRESSOR SUPPORT 4) Wound healing: add Vit C 250mg QD + continue [place] BID 5) Monitor lytes, replete as needed (lytes wnl) 6) Probiotics for diarrhea -> none noted . (6) Acute respiratory failure (7) Pneumonia (8) Trisomy 21, Down syndrome (9) LEANN (acute kidney injury) (10) Bacteremia (11) Hypokalemia (12) Anemia (13) Diarrhea (14) Hypernatremia (15) Pneumothorax (16) Pneumothorax, right Assessment & Plan: right ptx. s/p chest tube tube removed 07/11 left ptx tube placed 07/[address] to water seal chest tube removed 07/20 (17) Cardiac arrest (18) ARDS (adult respiratory distress syndrome) (19) Septic shock (20) HCAP (healthcare-associated pneumonia) (21) Respiratory failure requiring intubation (22) Seizure disorder (23) Hypothyroidism Mark Gordon Jul 23, 2020 11:40
[2020-07-23 11:41] VITALS: BP 111/50
--- NOTE | 2020-07-23 12:19 | Nephrology Progress Note ---
Assessment/Plan Problem List: (1) LEANN (acute kidney injury) (2) Respiratory failure requiring intubation (3) Down's syndrome (4) Seizure disorder (5) Hypothyroidism Assessment Acute renal failure, likely due to hypotension Acute respiratory distress, hypoxia Seizure disorder Hypothyroidism Down syndrome Full code Fluid challenge with IV fluids and albumin Midodrine for BP above 100 systolic Check TSH level Check Correct level Monitor renal parameters Urine studies Per orders Plan July 23: Labs reviewed. Renal parameters stable. Hemoglobin higher. Continue her consultants. July 22: Labs reviewed. Electrolyte abnormalities addressed. Hemoglobin lower. I suggest transfusion which I am deferring to PMD. Continue to monitor renal parameters. July 21: Labs reviewed. Magnesium supplement given. Hemoglobin 7.4. Defer transfusion to PMD. Continue to monitor electrolytes and renal parameters July 20: Due discontinuation of chest tube today. Trach to vent. Renal parameters stable. July 19: Trach to vent. Left chest tube to drain. Full code. Labs reviewed. Renal parameters stable. July 18: Trached and vent. Still has left chest tube to drain. No chemistry panel today. Continue per consultants. Patient full code. July 17: Patient now has trach connected to vent. Left chest tube remains in place. Patient full code. Continue per consultants. Labs reviewed. July 16: Discussed with RN. Remains on ventilator. Labs reviewed. Stable from renal standpoint of view. Patient due for tracheostomy when clinically stable. July 15: On ventilator. Left chest tube remains. Full code. Labs reviewed. Electrolyte abnormalities addressed. Continue per consultants. July 14: On ventilator. Tracheostomy postponed because patient is clinically unstable. Still have left chest tube draining. Labs reviewed. Electrolyte abnormalities addressed. Continue per consultants. July 13: Remains intubated on ventilator. Discussed with RN. Unclear if the patient is due for tracheostomy today or not. Apparently the patient was reintubated again yesterday. Patient has left chest tube. Electrolyte abnormalities addressed. July 12: Remains intubated on ventilator. Due for tracheostomy tomorrow. Left chest tube present. Patient is full code. Labs reviewed. Continue as is. July 11: Remains intubated on ventilator. Due for tracheostomy July 13. Has left-sided chest tube. Stable from renal standpoint to view. Continue per consultants. July 10: Remains intubated on ventilator. Electrolyte abnormalities addressed. Supplements ordered. July 09: Intubated on ventilator. Labs reviewed. Potassium supplement given. Remains bradycardic. Continue per consultants. July 08: Labs reviewed. Electrolyte abnormalities addressed. Heart rate remains bradycardic. Continue per cardiology. Continue to monitor renal parameters and electrolytes. July 07: Labs reviewed. Electrolyte abnormalities addressed and replaced. Medication list reviewed. Heart rate remains mid 50s. Continue as is. July 06: On ventilator. Full code. Heart rate low. Will discontinue Midodrin. Continue to rest. Electrolytes within normal limit. Discussed with RN. July 05: Remains intubated. Full code. No plan for tracheostomy yet. Labs reviewed. All acceptable. Continue same management July 04: Labs reviewed. Discussed with RN. Potassium and phosphorus and magnesium replacement ordered. Hemoglobin 9.5. Patient remains full code. Continue per consultants. July 03: Lab reviewed. Renal parameters stable. Full code. Intubated. Electrolyte abnormalities addressed and replacement done. July 02: Lab reviewed. Renal parameters stable. Full code. Intubated. Has right side chest tube. Continue per consultants. July 01: Lab reviewed. Renal parameters stable. Full code. Has right chest tube. Planning process for tracheostomy. Defer to chest and general surgeon. June 30: Labs reviewed. Renal parameters stable. Remains full code. Remains on ventilator. Due for tracheostomy tomorrow. Continue per consultants. Patient has a right chest tube in place at this time. June 29: Labs reviewed. Electrolyte imbalances addressed and supplemented. Remains full code and on ventilator. Continue to monitor renal parameters. Continue per consultants. June 28: Labs reviewed. Serum potassium again low today. Potassium supplement IV and through GT given. Patient remains full code and is on ventilator. Continue per consultants. Continue to monitor electrolytes and renal parameters. June 27: Labs reviewed. Abnormal electrolyte addressed. Remains full code. Remains vented. June 26: Day 27 of hospitalization. Full code. Labs reviewed. Hemoglobin down to 7.5. Electrolyte abnormalities addressed and corrections ordered. Continue to monitor renal parameters. Continue per consultants. Start on Levemir for blood sugar management. Questioning continuation of hydrocortisone? June 25: Labs reviewed. Potassium, phosphorus, hemoglobin, are all low. Potassium and phosphorus IV replacement given. Continue to monitor electrolytes and CBC. Patient remains full code. June 24: Lab reviewed. Low phosphorus low magnesium and low potassium was addressed. Hemoglobin drifting lower. Continue per consultants. Patient remains full code. June 23: Labs reviewed. Patient continues to be on ventilator. D5W for high sodium and also potassium chloride intravenously as supplement given. Hemoglobin 8.4. Continue to monitor electrolytes and renal parameters. June 22: Labs reviewed. Low potassium and high sodium noted. Hemoglobin 8.1 stable. Aim to correct abnormal electrolyte. Continue rest. Will give 2 boluses of D5W 500 cc. June 21: Lab reviewed. Abnormal electrolytes noted and addressed. June 20: Labs reviewed. Potassium supplement given. Patient remains full code. Continue per consultants. June 19: Lab reviewed. Electrolyte abnormalities addressed. Continue per pulmonary and ID. June 18: Lab reviewed. Status unchanged. Serum sodium 151 unchanged. Stable from renal standpoint of view. June 17: Labs reviewed. Status quo. D5W 500 cc IV ordered. Continue to monitor renal parameters. June 16: Status quo. Labs reviewed. Overall condition unchanged. Patient was transfused and hemoglobin higher. Continue current management. Patient remains full code. June 15: Status quo. Overall condition poor. Very low albumin. Edematous. Hypotensive. Hemoglobin lower. Anemia work-up ordered. I favor transfusion 2 units of packed RBCs. Patient remains full code. I favor supportive care only. Will discuss. June 14: Electrolyte abnormalities addressed. Serum creatinine lower. Cont inue per current management. June 13: Status unchanged. Lab reviewed. Serum potassium 2.7. IV potassium chloride ordered. Serum creatinine low at 1.6 stable. Blood pressure 90s systolic June 12: Status quo. Labs reviewed. Renal parameters stable. Serum creatinine down to 1.6. Medication list reviewed. Continues to be on midodrine. Continue per consultants. June 11: Status quo. Labs reviewed. Electrolytes adjusted. Serum creatinine down to 1.8. Continue per consultants. June 10: Status quo. Labs reviewed. Phosphorus supplement IV given. Serum creatinine 2. Continue per consultants. June 09: Requires less pressors. Albumin bolus given. 1 dose of Lasix IV ordered as the patient severely edematous. Patient serum albumin is very low. Continue per consultants. June 08: Continues to be intubated. Labs reviewed. Serum creatinine 1.9 unchanged. Blood pressure more stable. Off 1 of the pressors. Continue to monitor renal parameters. Continue per consultants. Patient now on hydrocortisone 100 mg every 8 hours. Will decrease IV fluid. Normal saline down to 50 cc an hour. June 07: Intubated. Labs reviewed. Creatinine 1.9 unchanged. Continue same treatment plan. Per consultants. Overall poor prognosis since the patient remains on pressors and her pulmonary status is worsening. June 06: Remains intubated. Labs reviewed. Creatinine 1.9. Blood pressure systolic 90s. Continue per consultants. June 05: Remains intubated. Labs reviewed. Serum creatinine lower to 2. Vancomycin level lower. Remains hypotensive on pressors. Will increase midodrine to 10 mg every 8 hours. Continue per consultants. Continue to monitor renal parameters. June 04: Patient now in ICU. Intubated. On pressors. Labs reviewed. Will increase midodrine. Aim to keep blood pressure over 100 systolic. Will give albumin bolus. Will check vancomycin level which was elevated when checked previously on June 01. Will monitor renal parameters. Continue per consultants. Subjective ROS Limited/Unobtainable: Yes Objective Objective Last 24 Hour Vital Signs Date Time Temp Pulse Resp B/P (MAP) Pulse Ox O2 Delivery O2 Flow Rate FiO2 07/23/20 11:41 97.9 51 18 111/50 (70) 96 07/23/20 11:29 49 20 45 07/23/20 08:00 98.1 50 20 114/62 (79) 98 07/23/20 08:00 45 07/23/20 08:00 Mechanical Ventilator Mechanical Ventilator Mechanical Ventilator 07/23/20 07:46 60 07/23/20 07:08 54 20 45 07/23/20 04:00 Mechanical Ventilator Mechanical Ventilator Mechanical Ventilator 07/23/20 04:00 97.9 59 20 132/76 (94) 100 07/23/20 04:00 45 07/23/20 03:27 47 07/23/20 02:56 45 20 45 07/23/20 00:00 Mechanical Ventilator Mechanical Ventilator Mechanical Ventilator 07/23/20 00:00 45 07/23/20 00:00 98.1 53 20 118/69 (85) 99 07/22/20 23:34 48 07/22/20 23:15 59 22 45 07/22/20 20:00 45 07/22/20 20:00 Mechanical Ventilator Mechanical Ventilator Mechanical Ventilator 07/22/20 20:00 98.1 48 18 101/50 (67) 99 07/22/20 19:10 42 20 45 07/22/20 19:04 48 07/22/20 16:00 45 07/22/20 16:00 Mechanical Ventilator Mechanical Ventilator Mechanical Ventilator 07/22/20 16:00 98.1 60 19 114/61 (78) 98 07/22/20 15:13 70 07/22/20 15:09 49 20 45 Intake and Output 07/22/20 07/23/20 19:00 07:00 Intake Total 1120 ml 600 ml Output Total 2300 ml 625 ml Balance -1180 ml -25 ml Free Water 200 ml 100 ml Tube Feeding 550 ml 500 ml Blood Product 250 ml Other 120 ml Output Urine Total 2300 ml 625 ml # Bowel Movements 1 1 Laboratory Tests 07/22/20 12:25: POC Whole Blood Glucose 123H 07/22/20 17:13: POC Whole Blood Glucose 141H 07/22/20 20:17: POC Whole Blood Glucose [Pending] 07/22/20 23:34: POC Whole Blood Glucose [Pending] 07/23/20 04:00: White Blood Count 8.5, Red Blood Count 2.84L, Hemoglobin 8.8L, Hematocrit 26.0L, Mean Corpuscular Volume 92, Mean Corpuscular Hemoglobin 31.0, Mean Corpuscular Hemoglobin Concent 33.9, Red Cell Distribution Width 17.7H, Platelet Count 101L, Mean Platelet Volume 9.4, Neutrophils (%) (Auto) 54.3, Lymphocytes (%) (Auto) 39.0, Monocytes (%) (Auto) 5.4, Eosinophils (%) (Auto) 0.9, Basophils (%) (Auto) 0.4, Sodium Level 143, Potassium Level 3.8, Chloride Level 110H, Carbon Dioxide Level 28, Anion Gap 5, Blood Urea Nitrogen 16, Creatinine 0.6, Estimat Gl omerular Filtration Rate > 60, Glucose Level 132H, Calcium Level 7.2L, Phosphorus Level 2.9, Magnesium Level 1.9, Total Bilirubin 0.4, Aspartate Amino Transf (AST/SGOT) 24, Alanine Aminotransferase (ALT/SGPT) 36, Alkaline Phosphatase 75, Pro-B-Type Natriuretic Peptide 988H, Total Protein 4.8L, Albumin 1.4L, Globulin 3.4, Albumin/Globulin Ratio 0.4L 07/23/20 05:11: POC Whole Blood Glucose [Pending] 07/23/20 11:40: POC Whole Blood Glucose [Pending] Height (Feet): 5 Height (Inches): 3.00 Weight (Pounds): 173 General Appearance: no apparent distress EENT: other - Trach and vent Cardiovascular: bradycardia Respiratory/Chest: decreased breath sounds Abdomen: distended Keron Pitt MD Jul 23, 2020 12:19
--- NOTE | 2020-07-23 12:32 | General Progress Note ---
Subjective ROS Limited/Unobtainable: No Allergies: Coded Allergies: No Known Allergies (Unverified , 10/16/18) Objective Last 24 Hour Vital Signs Date Time Temp Pulse Resp B/P (MAP) Pulse Ox O2 Delivery O2 Flow Rate FiO2 07/23/20 11:41 97.9 51 18 111/50 (70) 96 07/23/20 11:29 49 20 45 07/23/20 08:00 98.1 50 20 114/62 (79) 98 07/23/20 08:00 45 07/23/20 08:00 Mechanical Ventilator Mechanical Ventilator Mechanical Ventilator 07/23/20 07:46 60 07/23/20 07:08 54 20 45 07/23/20 04:00 Mechanical Ventilator Mechanical Ventilator Mechanical Ventilator 07/23/20 04:00 97.9 59 20 132/76 (94) 100 07/23/20 04:00 45 07/23/20 03:27 47 07/23/20 02:56 45 20 45 07/23/20 00:00 Mechanical Ventilator Mechanical Ventilator Mechanical Ventilator 07/23/20 00:00 45 07/23/20 00:00 98.1 53 20 118/69 (85) 99 07/22/20 23:34 48 07/22/20 23:15 59 22 45 07/22/20 20:00 45 07/22/20 20:00 Mechanical Ventilator Mechanical Ventilator Mechanical Ventilator 07/22/20 20:00 98.1 48 18 101/50 (67) 99 07/22/20 19:10 42 20 45 07/22/20 19:04 48 07/22/20 16:00 45 07/22/20 16:00 Mechanical Ventilator Mechanical Ventilator Mechanical Ventilator 07/22/20 16:00 98.1 60 19 114/61 (78) 98 07/22/20 15:13 70 07/22/20 15:09 49 20 45 Intake and Output 07/22/20 07/23/20 19:00 07:00 Intake Total 1120 ml 600 ml Output Total 2300 ml 625 ml Balance -1180 ml -25 ml Free Water 200 ml 100 ml Tube Feeding 550 ml 500 ml Blood Product 250 ml Other 120 ml Output Urine Total 2300 ml 625 ml # Bowel Movements 1 1 Laboratory Tests 07/22/20 17:13: POC Whole Blood Glucose 141H 07/22/20 20:17: POC Whole Blood Glucose [Pending] 07/22/20 23:34: POC Whole Blood Glucose [Pending] 07/23/20 04:00: White Blood Count 8.5, Red Blood Count 2.84L, Hemoglobin 8.8L, Hematocrit 26.0L, Mean Corpuscular Volume 92, Mean Corpuscular Hemoglobin 31.0, Mean Corpuscular Hemoglobin Concent 33.9, Red Cell Distribution Width 17.7H, Platelet Count 101L, Mean Platelet Volume 9.4, Neutrophils (%) (Auto) 54.3, Lymphocytes (%) (Auto) 39.0, Monocytes (%) (Auto) 5.4, Eosinophils (%) (Auto) 0.9, Basophils (%) (Auto) 0.4, Sodium Level 143, Potassium Level 3.8, Chloride Level 110H, Carbon Dioxide Level 28, Anion Gap 5, Blood Urea Nitrogen 16, Creatinine 0.6, Estimat Glomerular Filtration Rate > 60, Glucose Level 132H, Calcium Level 7.2L, Phosphorus Level 2.9, Magnesium Level 1.9, Total Bilirubin 0.4, Aspartate Amino Transf (AST/SGOT) 24, Alanine Aminotransferase (ALT/SGPT) 36, Alkaline Phosphatase 75, Pro-B-Type Natriuretic Peptide 988H, Total Protein 4.8L, Albumin 1.4L, Globulin 3.4, Albumin/Globulin Ratio 0.4L 07/23/20 05:11: POC Whole Blood Glucose [Pending] 07/23/20 11:40: POC Whole Blood Glucose [Pending] Height (Feet): 5 Height (Inches): 3.00 Weight (Pounds): 173 General Appearance: no apparent distress EENT: normal ENT inspection Neck: supple Cardiovascular: normal rate Respiratory/Chest: decreased breath sounds Abdomen: normal bowel sounds, non tender, soft Extremities: non-tender Assessment/Plan Status: stable, unchanged Assessment/Plan: 1. History of Down syndrome. 2. Dysphagia with G-tube. 3. Seizure disorder. 4. Hypothyroidism. 5. LEANN. 6. Pneumonia. 7. Sepsis. fu H&H prn blood transfusion to keep HGB above 7>>> one unit today ppi GTF hold GI procedures for now Nehemiah Perez MD Jul 23, 2020 12:32
--- NOTE | 2020-07-23 12:47 | NUR ---
CASE MANAGEMENT: REVIEW 07/23/20 SI: RESP FAILURE....NEW TRACH DOWN'S SYNDROME . PNEUMOTHORAX...S/P CHEST TUBE VS: T 97.9 HR 51 RR 18 B/P 111/50 SATS 96% ON MECH VENT FIO2 45 LABS: HGB 8.8 HCT 26 CL 110 GLU 132 BNP 988 CA 7.2 IS: IV SOLU CORTEF Q12 IV PROTONIX Q12H K-DUR GT Q12H : SDU DCP: PATIENT IS FROM [facility]
--- NOTE | 2020-07-23 12:53 | NUR ---
CASE MANAGEMENT: NOTE CM S/W RT REGARDING OXYGEN DEMANDS AND DC PLANNING RT WILL CONTINUE TO TITRATE OXYGEN CM S/W [facility]ARD AT [facility] REGARDING CURRENT O2 SETTINGS >> FIO2 40 MAXIMUM
--- NOTE | 2020-07-23 13:15 | Infectious Diseases Prog Note ---
Assessment/Plan ASSESSMENT: sp code blue 06/03 Septic Shock; SP Fever, recurrent- low grade -SP Leukocytosis; recurrent; SP 10/5 u/a -, nit neg, leuk +2; ucx PsA (I Genta); colonizer sp cx P, mirabilsi (R levo); colonzier -06/27 Bcx Neg -06/17 u/a no pyuria -06/16 Bcx Neg(Picc line) -06/14 Bcx Neg ucx Neg sp cx C. parapsilopsis -06/03 u/a no pyuria Pneumonia.- COVID 19 neg x3 Acute hypoxic resp failure on VM> NRB 15l 100%; hypoxic on ABG> now VDRF 06/03- Fio2 80% >100% 06/05> 60% 06/09 >80% 06/10 >95% 06/18 >90% 06/22 >60% 06/23 R tension Pneumothroax sp CT 06/29 07/17 sp trach 07/17 CXR: Diffuse airspace opacities. 07/16 CXR: bilateral infiltrates are all unchanged. 07/13 CXR: Extensive bilateral airspace opacities, right greater than left, consistent with multifocal infiltrate worse pulmonary edema. This is similar in appearance to the prior study. Worsening, small left pleural effusion. This may be secondary to redistribution as the right-sided pleural effusion has mildly improved. -06/30 CXR: Interim complete reexpansion of right lung without evidence of residual pneumothorax. Bilateral diffuse and extensive infiltrates. Markedly improved chest wall subcutaneous emphysema -06/29 CXR: Interim reexpansion of previously demonstrated right pneumothorax, status post large bore chest tube placement. -06/22 CXR: Improved aeration of both lungs. -06/13 CXR:Small bilateral pleural effusions with minor edema. Stable edema with mild worsening in the degree of pleural effusion on the right. -06/09 sp cx Neg 06/08 CXR: Extensive bilateral interstitial and airspace disease appears similar to the prior exam. Moderate to large bilateral pleural effusions appear unchanged. 06/05 CXR: Increasing left upper lobe dense consolidation and likely increasing bilateral pleural fluid. Persistent diffuse dense consolidation elsewhere -06/03 sp cx normal resp marie -06/02 CXR: Increased atelectasis of the right lung, since prior exam of 3 days earlier. New or increased right pleural effusion. Increased left basilar consolidation and/or pleural fluid -COVID Rapid PCR neg 05/31, 05/31, 06/03 -05/30 spc x Group G strep -05/30 CXR: Reduced lung volumes. Patchy bilateral predominantly interstitial pulmonary opacities. Could be from edema and/or pneumonia. There is a broader differential. -legionella ag urine, blasto ab, Histo ab, HIV ab screen, FRANCIS, ANCA neg Persistent, high grade bacteremia- -05/30 Bcx 4/4 sets S. haemolyticus; 05/31 Bcx 3/4 S/ epi; 06/04 Bcx 1.4 S. warnerri; 06/06 Bcx Neg -2d echo: no vegetaions seen ua/ wbc 10-15, nit neg, leuk +1; ucx Neg LEANN; -supratherapeutic vanco levels -Seizure disorder. - Hypothyroidism. - Down syndrome. History of PEG tube placement. [place] resident PLAN: Monitor off abx unless febrile, increasing WBC and/or HD unstable 06/22 SP Meropenem #18, IV Amikacin #7 06/12/20 SP Daptomycin #11 06/10 SP MIcafungin #7, Linezolid #5 06/05 SP Azithromycin #7/7 06/03 SP Ceftriaxone #2 06/02 SP IV Vancomycin #4, Zosyn #4 05/30 SP Cefepime x1, Flagyl x1 - Monitor CBC, BMP. .f/u cx - COVID neg x3 - Monitor chest x-ray. -PEG/Trach care -aspiration precautions -discharge planning to SNF-needs to be FIO2 30% or below Thank you, Dr. Allred, for allowing me to participate in the care of this patient. I will follow the patient with you at this hospitalization. Discussed with RN Subjective Allergies: Coded Allergies: No Known Allergies (Unverified , 10/16/18) afebrile no leukocytosis off abx discharge planning Objective Last 24 Hour Vital Signs Date Time Temp Pulse Resp B/P (MAP) Pulse Ox O2 Delivery O2 Flow Rate FiO2 07/23/20 12:00 45 07/23/20 12:00 Mechanical Ventilator Mechanical Ventilator Mechanical Ventilator 07/23/20 11:41 97.9 51 18 111/50 (70) 96 07/23/20 11:29 49 20 45 07/23/20 08:00 98.1 50 20 114/62 (79) 98 07/23/20 08:00 45 07/23/20 08:00 Mechanical Ventilator Mechanical Ventilator Mechanical Ventilator 07/23/20 07:46 60 07/23/20 07:08 54 20 45 07/23/20 04:00 Mechanical Ventilator Mechanical Ventilator Mechanical Ventilator 07/23/20 04:00 97.9 59 20 132/76 (94) 100 07/23/20 04:00 45 07/23/20 03:27 47 07/23/20 02:56 45 20 45 07/23/20 00:00 Mechanical Ventilator Mechanical Ventilator Mechanical Ventilator 07/23/20 00:00 45 07/23/20 00:00 98.1 53 20 118/69 (85) 99 07/22/20 23:34 48 07/22/20 23:15 59 22 45 07/22/20 20:00 45 07/22/20 20:00 Mechanical Ventilator Mechanical Ventilator Mechanical Ventilator 07/22/20 20:00 98.1 48 18 101/50 (67) 99 07/22/20 19:10 42 20 45 07/22/20 19:04 48 07/22/20 16:00 45 07/22/20 16:00 Mechanical Ventilator Mechanical Ventilator Mechanical Ventilator 07/22/20 16:00 98.1 60 19 114/61 (78) 98 07/22/20 15:13 70 07/22/20 15:09 49 20 45 Height (Feet): 5 Height (Inches): 3.00 Weight (Pounds): 173 HEENT: . trach in place CHEST: Coarse breathing sounds. HEART: S1 and S2. ABDOMEN: Soft. PEG tube in place. SKIN: no rash Laboratory Tests Test 07/22/20 17:13 07/22/20 20:17 07/22/20 23:34 07/23/20 04:00 POC Whole Blood Glucose 141 MG/DL (74-106) H Pending Pending White Blood Count 8.5 K/UL (4.8-10.8) Red Blood Count 2.84 M/UL (4.20-5.40) L Hemoglobin 8.8 G/DL (12.0-16.0) L Hematocrit 26.0 % (37.0-47.0) L Mean Corpuscular Volume 92 FL (80-99) Mean Corpuscular Hemoglobin 31.0 PG (27.0-31.0) Mean Corpuscular Hemoglobin Concent 33.9 G/DL (32.0-36.0) Red Cell Distribution Width 17.7 % (11.6-14.8) H Platelet Count 101 K/UL (150-450) L Mean Platelet Volume 9.4 FL (6.5-10.1) Neutrophils (%) (Auto) 54.3 % (45.0-75.0) Lymphocytes (%) (Auto) 39.0 % (20.0-45.0) Monocytes (%) (Auto) 5.4 % (1.0-10.0) Eosinophils (%) (Auto) 0.9 % (0.0-3.0) Basophils (%) (Auto) 0.4 % (0.0-2.0) Sodium Level 143 MMOL/L (136-145) Potassium Level 3.8 MMOL/L (3.5-5.1) Chloride Level 110 MMOL/L (98-107) H Carbon Dioxide Level 28 MMOL/L (21-32) Anion Gap 5 mmol/L (5-15) Blood Urea Nitrogen 16 mg/dL (7-18) Creatinine 0.6 MG/DL (0.55-1.30) Estimat Glomerular Filtration Rate > 60 mL/min (>60) Glucose Level 132 MG/DL (74-106) H Calcium Level 7.2 MG/DL (8.5-10.1) L Phosphorus Level 2.9 MG/DL (2.5-4.9) Magnesium Level 1.9 MG/DL (1.8-2.4) Total Bilirubin 0.4 MG/DL (0.2-1.0) Aspartate Amino Transf (AST/SGOT) 24 U/L (15-37) Alanine Aminotransferase (ALT/SGPT) 36 U/L (12-78) Alkaline Phosphatase 75 U/L (46-116) Pro-B-Type Natriuretic Peptide 988 pg/mL (0-125) H Total Protein 4.8 G/DL (6.4-8.2) L Albumin 1.4 G/DL (3.4-5.0) L Globulin 3.4 g/dL Albumin/Globulin Ratio 0.4 (1.0-2.7) L Test 07/23/20 05:11 07/23/20 11:40 POC Whole Blood Glucose Pending Pending Current Medications Medications (Trade) Dose Ordered Sig/Katy Route PRN Reason Start Time Stop Time Status Last Admin Dose Admin Acetaminophen (Tylenol) 650 mg Q4H PRN GT For Pain 07/01/20 17:15 07/31/20 17:14 07/10/20 17:46 Chlorhexidine Gluconate (Alla-Hex 2%) 1 applic DAILY@2000 TOPIC 06/08/20 20:00 09/06/20 19:59 07/22/20 20:26 Clotrimazole (Lotrimin) 1 applic Q12HR TOPIC 06/07/20 13:00 09/05/20 12:59 07/23/20 09:21 Dextrose (Dextrose 50%) 25 ml Q30M PRN IV Hypoglycemia 06/03/20 11:30 08/28/20 11:29 Dextrose (Dextrose 50%) 50 ml Q30M PRN IV Hypoglycemia 06/03/20 11:30 08/28/20 11:29 Hydrocortisone (Solu-CORTEF) 25 mg Q12H IV 07/17/20 22:00 10/15/20 21:59 07/23/20 09:31 Insulin Aspart (NovoLOG) Q6HR SUBQ 06/26/20 12:00 09/24/20 11:59 07/22/20 17:31 Insulin Detemir (Levemir) 10 units Q12HR SUBQ 06/26/20 10:00 09/24/20 09:59 07/23/20 09:23 Levothyroxine Sodium (Synthroid) 75 mcg DAILY@0630 GT 07/08/20 06:30 08/07/20 06:29 07/23/20 05:31 Loperamide HCl (Imodium) 2 mg Q6H PRN NG Diarrhea 06/24/20 10:30 07/24/20 10:29 07/01/20 11:41 Pantoprazole (Protonix) 40 mg EVERY 12 HOURS IVP 07/06/20 21:00 08/05/20 20:59 07/23/20 09:20 Potassium Chloride (K-Dur) 40 meq EVERY 12 HOURS GT 07/04/20 21:00 09/26/20 12:14 07/23/20 09:20 Suki Camejo M.D. Jul 23, 2020 13:15
--- NOTE | 2020-07-23 14:53 | Diagnostic Imaging Report ---
Indication: Dyspnea Technique: One view of the chest Comparison: 07/21/2020 Findings: Tracheostomy, left arm PICC are again demonstrated. Bilateral infiltrates versus edema are unchanged. The heart remains enlarged. Impression: Unchanged, over 2 days, findings as above.
[2020-07-23] MEDS ORDERED: NS 275ml ONE (15:07)
[2020-07-23] MEDS ORDERED: Tubing Blood Filter IV ONE (15:07)
[2020-07-23] MEDS ORDERED: Tubing IV Secondary IV ONE (15:07)
[2020-07-23 16:00] VITALS: BP 118/65
--- NOTE | 2020-07-23 16:00 | NUR ---
NURSE NOTES: Placed on 40% FIO2,tolerting well no resp distress presented.
--- NOTE | 2020-07-23 16:50 | Internal Med Progress Note ---
Subjective Physician Name Guillaume Hawk Attending Physician Elayen Allred MD Current Medications Medications (Trade) Dose Ordered Sig/Katy Route PRN Reason Start Time Stop Time Status Last Admin Dose Admin Acetaminophen (Tylenol) 650 mg Q4H PRN GT For Pain 07/01/20 17:15 07/31/20 17:14 07/10/20 17:46 Chlorhexidine Gluconate (Alla-Hex 2%) 1 applic DAILY@1999 TOPIC 06/08/20 20:00 09/06/20 19:59 07/22/20 20:26 Clotrimazole (Lotrimin) 1 applic Q12HR TOPIC 06/07/20 13:00 09/05/20 12:59 07/23/20 09:21 Dextrose (Dextrose 50%) 25 ml Q30M PRN IV Hypoglycemia 06/03/20 11:30 08/28/20 11:29 Dextrose (Dextrose 50%) 50 ml Q30M PRN IV Hypoglycemia 06/03/20 11:30 08/28/20 11:29 Hydrocortisone (Solu-CORTEF) 25 mg Q12H IV 07/17/20 22:00 10/15/20 21:59 07/23/20 09:31 Insulin Aspart (NovoLOG) Q6HR SUBQ 06/26/20 12:00 09/24/20 11:59 07/22/20 17:31 Insulin Detemir (Levemir) 10 units Q12HR SUBQ 06/26/20 10:00 09/24/20 09:59 07/23/20 09:23 Levothyroxine Sodium (Synthroid) 75 mcg DAILY@0630 GT 07/08/20 06:30 08/07/20 06:29 07/23/20 05:31 Loperamide HCl (Imodium) 2 mg Q6H PRN NG Diarrhea 06/24/20 10:30 07/24/20 10:29 07/01/20 11:41 Pantoprazole (Protonix) 40 mg EVERY 12 HOURS IVP 07/06/20 21:00 08/05/20 20:59 07/23/20 09:20 Potassium Chloride (K-Dur) 40 meq EVERY 12 HOURS GT 07/04/20 21:00 09/26/20 12:14 07/23/20 09:20 Allergies: Coded Allergies: No Known Allergies (Unverified , 10/16/18) Subjective in PCU, ,on the vent, tracheostomy , awake, responsive, open her eyes, WBC 9.1, Hemoglobin 8.7 Objective Last Vital Signs Date Time Temp Pulse Resp B/P (MAP) Pulse Ox O2 Delivery O2 Flow Rate FiO2 07/23/20 16:00 45 07/23/20 16:00 96.1 59 18 118/65 (82) 98 07/23/20 12:00 Mechanical Ventilator Mechanical Ventilator Mechanical Ventilator Laboratory Tests Test 07/22/20 17:13 07/22/20 20:17 07/22/20 23:34 07/23/20 04:00 POC Whole Blood Glucose 141 MG/DL (74-106) H Pending Pending White Blood Count 8.5 K/UL (4.8-10.8) Red Blood Count 2.84 M/UL (4.20-5.40) L Hemoglobin 8.8 G/DL (12.0-16.0) L Hematocrit 26.0 % (37.0-47.0) L Mean Corpuscular Volume 92 FL (80-99) Mean Corpuscular Hemoglobin 31.0 PG (27.0-31.0) Mean Corpuscular Hemoglobin Concent 33.9 G/DL (32.0-36.0) Red Cell Distribution Width 17.7 % (11.6-14.8) H Platelet Count 101 K/UL (150-450) L Mean Platelet Volume 9.4 FL (6.5-10.1) Neutrophils (%) (Auto) 54.3 % (45.0-75.0) Lymphocytes (%) (Auto) 39.0 % (20.0-45.0) Monocytes (%) (Auto) 5.4 % (1.0-10.0) Eosinophils (%) (Auto) 0.9 % (0.0-3.0) Basophils (%) (Auto) 0.4 % (0.0-2.0) Sodium Level 143 MMOL/L (136-145) Potassium Level 3.8 MMOL/L (3.5-5.1) Chloride Level 110 MMOL/L (98-107) H Carbon Dioxide Level 28 MMOL/L (21-32) Anion Gap 5 mmol/L (5-15) Blood Urea Nitrogen 16 mg/dL (7-18) Creatinine 0.6 MG/DL (0.55-1.30) Estimat Glomerular Filtration Rate > 60 mL/min (>60) Glucose Level 132 MG/DL (74-106) H Calcium Level 7.2 MG/DL (8.5-10.1) L Phosphorus Level 2.9 MG/DL (2.5-4.9) Magnesium Level 1.9 MG/DL (1.8-2.4) Total Bilirubin 0.4 MG/DL (0.2-1.0) Aspartate Amino Transf (AST/SGOT) 24 U/L (15-37) Alanine Aminotransferase (ALT/SGPT) 36 U/L (12-78) Alkaline Phosphatase 75 U/L (46-116) Pro-B-Type Natriuretic Peptide 988 pg/mL (0-125) H Total Protein 4.8 G/DL (6.4-8.2) L Albumin 1.4 G/DL (3.4-5.0) L Globulin 3.4 g/dL Albumin/Globulin Ratio 0.4 (1.0-2.7) L Test 07/23/20 05:11 07/23/20 11:40 POC Whole Blood Glucose Pending Pending Intake and Output 07/22/20 07/23/20 19:00 07:00 Intake Total 1120 ml 600 ml Output Total 2300 ml 625 ml Balance -1180 ml -25 ml Free Water 200 ml 100 ml Tube Feeding 550 ml 500 ml Blood Product 250 ml Other 120 ml Output Urine Total 2300 ml 625 ml # Bowel Movements 1 1 Objective General: awake, responsive, open eyes HEENT: NCAT, sclera anicteric, PERRL, EOMI Neck: Supple, tracheostomy site intact Lungs: mechanical breath sounds decreased air at the bases, no Wheeze, no rhonchi Heart: Regular rate and rhythm, normal S1/S2, no murmurs/gallops Abdomen: soft, not tender, not distended. + bowel sounds, Morbid Obesity, PEG site intact. : Gregorio cath Extremities: No Cyanosis , clubbing, Bilateral upper extremities less edema. left upper extremity PICC line. Neuro: limited secondary to patient status, unable to follow command, bilateral upper and lower extremities contracted. Assessment/Plan Assessment/Plan Problem List: (1) HCAP (healthcare-associated pneumonia) (2) Sepsis (3) Down's syndrome (4) Dysphagia S/P PEG (5) Seizure disorder (6) Hypothyroidism (7) Acute Hypoxemic respiratory failure (8) Persistent, high grade bacteremia- r/o endocarditis (9) LEANN (10) Bilateral pneumothorax status post chest tube placement and removal. Plan: Tolerated tube feeding @ 50 cc/hr Follow-up with laboratory and cultures decrease Hydrocortisone 25 mg IV daily Continue to monitor off abx DC Planning Guillaume Hawk MD Jul 23, 2020 16:50
--- NOTE | 2020-07-23 17:52 | NUR ---
NURSE NOTES: Bed bath given,pt turned and repositioned to sides,kept dry ans clean.
--- NOTE | 2020-07-23 19:15 | NUR ---
NURSE HAND-OFF REPORT: Important Events on Shift:Pt placed on Fio2 40% Patient Status: stable Diet: Vital AF 1.2 at 50 ml/hr per GT Pending Orders: N/A Pending Results/Labs:N/A Pending MD notification:N/A Latest Vital Signs: Temperature 96.1 , Pulse 51 , B/P 118 /65 , Respiratory Rate 20 , O2 SAT 98 , Mechanical Ventilator, O2 Flow Rate 15.0 . Vital Sign Comment: stable EKG Rhythm: SR,BBB Rhythm change?: N Notified?: N -Dr Arlin PRAKASH Response: No New Orders Received Latest Osorio Fall Score: 70 Fall Risk: High Risk Safety Measures: Call light Within Reach, Bed Alarm Zone 1, Side Rails Side Rails x3, Bed position Low and Locked. Fall Precautions: Yellow Socks Report given to .adalberto Fuller RN/Jennifer Hernandez RN
--- NOTE | 2020-07-23 19:17 | NUR ---
NURSE NOTES: Received report from Sheyla LUJAN. Pt is resting in bed, awake, not in distress. Tolerating trach to vent with the following settings AC 20, TV 500, FiO2 40%, PEEP 5 and saturating @ 98%. SB on the director of cardiac rehabilitation. GT is running Vital AF @ 50cc/hr. Skin issues were noted. PICC line in Left Upper arm is intact and patent. Fall precautions and aspiration precautions initiated. Beds are padded. HOB is elevated. Bed is locked and in lowest position. Call light is within reached, and bed alarms on. Will continue to monitor pt. Will continue with the plan of care.
--- NOTE | 2020-07-23 19:36 | Cardiology Progress Note ---
Assessment/Plan Assessment/Plan sepsis respiratory failure ards renal insuf bacteremia abn cardiac enzyme due to demand sinus rafael stable thrombocytopenia resolved hypernatremia pneumothorax now s/p chest tube on the left now thrombocytopenia vent support tsh seems fine hr inthe 60's s no sig pauses on tele tele personally reviewed bp ok probnp min elelvated but is better cxr noted watch plt Subjective ROS Limited/Unobtainable: Yes Subjective on a vent not communicative not AWAKE Objective Last 24 Hour Vital Signs Date Time Temp Pulse Resp B/P (MAP) Pulse Ox O2 Delivery O2 Flow Rate FiO2 07/23/20 19:02 51 20 40 07/23/20 16:00 Mechanical Ventilator Mechanical Ventilator Mechanical Ventilator 07/23/20 16:00 72 07/23/20 16:00 45 07/23/20 16:00 96.1 59 18 118/65 (82) 98 07/23/20 15:20 52 21 40 07/23/20 12:01 Mechanical Ventilator Mechanical Ventilator Mechanical Ventilator 07/23/20 12:00 45 07/23/20 12:00 51 07/23/20 11:41 97.9 51 18 111/50 (70) 96 07/23/20 11:29 49 20 45 07/23/20 08:01 Mechanical Ventilator Mechanical Ventilator Mechanical Ventilator 07/23/20 08:00 98.1 50 20 114/62 (79) 98 07/23/20 08:00 45 07/23/20 07:46 60 07/23/20 07:08 54 20 45 07/23/20 04:00 Mechanical Ventilator Mechanical Ventilator Mechanical Ventilator 07/23/20 04:00 97.9 59 20 132/76 (94) 100 07/23/20 04:00 45 07/23/20 03:27 47 07/23/20 02:56 45 20 45 07/23/20 00:00 Mechanical Ventilator Mechanical Ventilator Mechanical Ventilator 07/23/20 00:00 45 07/23/20 00:00 98.1 53 20 118/69 (85) 99 07/22/20 23:34 48 07/22/20 23:15 59 22 45 07/22/20 20:00 45 07/22/20 20:00 Mechanical Ventilator Mechanical Ventilator Mechanical Ventilator 07/22/20 20:00 98.1 48 18 101/50 (67) 99 General Appearance: no apparent distress, alert, patient on isolation Intake and Output 07/22/20 07/23/20 19:00 07:00 Intake Total 1120 ml 600 ml Output Total 2300 ml 625 ml Balance -1180 ml -25 ml Free Water 200 ml 100 ml Tube Feeding 550 ml 500 ml Blood Product 250 ml Other 120 ml Output Urine Total 2300 ml 625 ml # Bowel Movements 1 1 Laboratory Tests Test 07/22/20 20:17 07/22/20 23:34 07/23/20 04:00 07/23/20 05:11 POC Whole Blood Glucose Pending Pending Pending White Blood Count 8.5 K/UL (4.8-10.8) Red Blood Count 2.84 M/UL (4.20-5.40) L Hemoglobin 8.8 G/DL (12.0-16.0) L Hematocrit 26.0 % (37.0-47.0) L Mean Corpuscular Volume 92 FL (80-99) Mean Corpuscular Hemoglobin 31.0 PG (27.0-31.0) Mean Corpuscular Hemoglobin Concent 33.9 G/DL (32.0-36.0) Red Cell Distribution Width 17.7 % (11.6-14.8) H Platelet Count 101 K/UL (150-450) L Mean Platelet Volume 9.4 FL (6.5-10.1) Neutrophils (%) (Auto) 54.3 % (45.0-75.0) Lymphocytes (%) (Auto) 39.0 % (20.0-45.0) Monocytes (%) (Auto) 5.4 % (1.0-10.0) Eosinophils (%) (Auto) 0.9 % (0.0-3.0) Basophils (%) (Auto) 0.4 % (0.0-2.0) Sodium Level 143 MMOL/L (136-145) Potassium Level 3.8 MMOL/L (3.5-5.1) Chloride Level 110 MMOL/L (98-107) H Carbon Dioxide Level 28 MMOL/L (21-32) Anion Gap 5 mmol/L (5-15) Blood Urea Nitrogen 16 mg/dL (7-18) Creatinine 0.6 MG/DL (0.55-1.30) Estimat Glomerular Filtration Rate > 60 mL/min (>60) Glucose Level 132 MG/DL (74-106) H Calcium Level 7.2 MG/DL (8.5-10.1) L Phosphorus Level 2.9 MG/DL (2.5-4.9) Magnesium Level 1.9 MG/DL (1.8-2.4) Total Bilirubin 0.4 MG/DL (0.2-1.0) Aspartate Amino Transf (AST/SGOT) 24 U/L (15-37) Alanine Aminotransferase (ALT/SGPT) 36 U/L (12-78) Alkaline Phosphatase 75 U/L (46-116) Pro-B-Type Natriuretic Peptide 988 pg/mL (0-125) H Total Protein 4.8 G/DL (6.4-8.2) L Albumin 1.4 G/DL (3.4-5.0) L Globulin 3.4 g/dL Albumin/Globulin Ratio 0.4 (1.0-2.7) L Test 07/23/20 11:40 07/23/20 17:53 POC Whole Blood Glucose Pending 129 MG/DL (74-106) H Josue Pantoja MD Jul 23, 2020 19:36
[2020-07-23 20:00] VITALS: BP 127/71
[2020-07-23] MEDS: Dyna-Hex 2% Top Sol 2oz TOPIC SCH (20:08)
[2020-07-24] VITALS (7 sets, daily range): BP systolic 98–129; BP diastolic 48–70
[2020-07-24 04:47] LABS: EOSINOPHILS % (AUTO) 1.1 % (0.0-3.0); HEMATOCRIT 25.8 % (37.0-47.0); HEMOGLOBIN 8.7 G/DL (12.0-16.0); LYMPHOCYTES % (AUTO) 34.2 % (20.0-45.0); MEAN CORPUSCULAR VOLUME 92 FL (80-99); MONOCYTES % (AUTO) 7.6 % (1.0-10.0); PLATELET COUNT 106 K/UL (150-450); RED BLOOD COUNT 2.79 M/UL (4.20-5.40); RED CELL DISTRIBUTION WIDTH 17.4 % (11.6-14.8); WHITE BLOOD COUNT 9.1 K/UL (4.8-10.8)
[2020-07-24 05:18] LABS: ALANINE AMINOTRANSFERASE 37 U/L (12-78); ALBUMIN 1.3 G/DL (3.4-5.0); ALBUMIN/GLOBULIN RATIO 0.4 (1.0-2.7); ALKALINE PHOSPHATASE 70 U/L (46-116); ANION GAP 4 mmol/L (5-15); ASPARTATE AMINO TRANSFERASE 25 U/L (15-37); BILIRUBIN,TOTAL 0.4 MG/DL (0.2-1.0); BLOOD UREA NITROGEN 16 mg/dL (7-18); CALCIUM 7.4 MG/DL (8.5-10.1); CARBON DIOXIDE 28 MMOL/L (21-32); CHLORIDE 111 MMOL/L (98-107); CREATININE 0.6 MG/DL (0.55-1.30); POTASSIUM 3.8 MMOL/L (3.5-5.1); SODIUM 143 MMOL/L (136-145)
[2020-07-24] MEDS: NovoLOG Insulin Flexpen SUBQ SCH ×4 (05:48→18:00)
--- NOTE | 2020-07-24 07:08 | NUR ---
NURSE HAND-OFF REPORT: Important Events on Shift:stable Patient Status: stable Diet: Vital AF 1.2 Pending Orders: Pending Results/Labs: Pending MD notification: Latest Vital Signs: Temperature 96.9 , Pulse 55 , B/P 125 /70 , Respiratory Rate 20 , O2 SAT 97 , Mechanical Ventilator, O2 Flow Rate 15.0 . Vital Sign Comment: EKG Rhythm: Sinus Bradycardia- ST - SR - SB Rhythm change?: y MD Notified?: N -pt. SB - ST 130's- converted back to SR in few seconds then to SB- pt. remains stable. MD Response: Latest Osorio Fall Score: 70 Fall Risk: High Risk Safety Measures: Call light Within Reach, Bed Alarm Zone 1, Side Rails Side Rails x3, Bed position Low and Locked. Fall Precautions: Yellow Socks Report given to TAI Alcala pt. remains stable- aware to f/u on any abnormal am labs.
--- NOTE | 2020-07-24 07:10 | NUR ---
NURSE NOTES: Report received from Devaughn and Jennifer Hernandez RN.Pt asleep noted no resp distress,with trach tube to vent,AC20 TV500,Fio2 40% Peep5 no signs of pain or disvomfort SR on the monitor,GTF Vital AF 1.2 at 50 ml/hr no residual noted,skin warm and dry JODY PICC line intact,and clean,SR up x2 HOB elevated bed lock in lowest position will continue with plans of care.
[2020-07-24] MEDS ORDERED: Hydrocortisone 100mg Inj IV SCH (09:00)
--- NOTE | 2020-07-24 09:00 | NUR ---
NURSE NOTES: Resp Therapist tried to tapere Fio2 to 30% but pt unable to tolerate O2 sat desaturated to 91%.pt paced back to 40%.
[2020-07-24] MEDS: Pantoprazole Inj IVP SCH ×2 (09:06→20:09)
--- NOTE | 2020-07-24 09:09 | Internal Med Progress Note ---
Subjective Physician Name Guillaume Hawk Attending Physician Elayne Allred MD Current Medications Medications (Trade) Dose Ordered Sig/Katy Route PRN Reason Start Time Stop Time Status Last Admin Dose Admin Acetaminophen (Tylenol) 650 mg Q4H PRN GT For Pain 07/01/20 17:15 07/31/20 17:14 07/10/20 17:46 Chlorhexidine Gluconate (Alla-Hex 2%) 1 applic DAILY@2000 TOPIC 06/08/20 20:00 09/06/20 19:59 07/23/20 20:08 Clotrimazole (Lotrimin) 1 applic Q12HR TOPIC 06/07/20 13:00 09/05/20 12:59 07/23/20 20:08 Dextrose (Dextrose 50%) 25 ml Q30M PRN IV Hypoglycemia 06/03/20 11:30 08/28/20 11:29 Dextrose (Dextrose 50%) 50 ml Q30M PRN IV Hypoglycemia 06/03/20 11:30 08/28/20 11:29 Hydrocortisone (Solu-CORTEF) 25 mg DAILY IV 07/24/20 09:00 10/15/20 08:59 Insulin Aspart (NovoLOG) Q6HR SUBQ 06/26/20 12:00 09/24/20 11:59 07/22/20 17:31 Insulin Detemir (Levemir) 10 units Q12HR SUBQ 06/26/20 10:00 09/24/20 09:59 07/23/20 20:08 Levothyroxine Sodium (Synthroid) 75 mcg DAILY@0630 GT 07/08/20 06:30 08/07/20 06:29 07/24/20 05:40 Loperamide HCl (Imodium) 2 mg Q6H PRN NG Diarrhea 06/24/20 10:30 07/24/20 10:29 07/01/20 11:41 Pantoprazole (Protonix) 40 mg EVERY 12 HOURS IVP 07/06/20 21:00 08/05/20 20:59 07/23/20 20:09 Potassium Chloride (K-Dur) 40 meq EVERY 12 HOURS GT 07/04/20 21:00 09/26/20 12:14 07/23/20 20:09 Allergies: Coded Allergies: No Known Allergies (Unverified , 10/16/18) Subjective in PCU, ,on the vent, tracheostomy , awake, responsive, open her eyes, WBC 9.1, Hemoglobin 8.7 Objective Last Vital Signs Date Time Temp Pulse Resp B/P (MAP) Pulse Ox O2 Delivery O2 Flow Rate FiO2 07/24/20 08:00 98.1 53 20 126/64 (84) 99 07/24/20 08:00 30 07/24/20 08:00 Mechanical Ventilator Mechanical Ventilator Mechanical Ventilator Laboratory Tests Test 07/23/20 11:40 07/23/20 17:53 07/23/20 20:04 07/24/20 00:55 POC Whole Blood Glucose Pending 129 MG/DL (74-106) H 106 MG/DL (74-106) 115 MG/DL (74-106) H Test 07/24/20 04:00 07/24/20 05:44 White Blood Count 9.1 K/UL (4.8-10.8) Red Blood Count 2.79 M/UL (4.20-5.40) L Hemoglobin 8.7 G/DL (12.0-16.0) L Hematocrit 25.8 % (37.0-47.0) L Mean Corpuscular Volume 92 FL (80-99) Mean Corpuscular Hemoglobin 31.3 PG (27.0-31.0) H Mean Corpuscular Hemoglobin Concent 33.8 G/DL (32.0-36.0) Red Cell Distribution Width 17.4 % (11.6-14.8) H Platelet Count 106 K/UL (150-450) L Mean Platelet Volume 8.4 FL (6.5-10.1) Neutrophils (%) (Auto) 56.0 % (45.0-75.0) Lymphocytes (%) (Auto) 34.2 % (20.0-45.0) Monocytes (%) (Auto) 7.6 % (1.0-10.0) Eosinophils (%) (Auto) 1.1 % (0.0-3.0) Basophils (%) (Auto) 1.0 % (0.0-2.0) Sodium Level 143 MMOL/L (136-145) Potassium Level 3.8 MMOL/L (3.5-5.1) Chloride Level 111 MMOL/L (98-107) H Carbon Dioxide Level 28 MMOL/L (21-32) Anion Gap 4 mmol/L (5-15) L Blood Urea Nitrogen 16 mg/dL (7-18) Creatinine 0.6 MG/DL (0.55-1.30) Estimat Glomerular Filtration Rate > 60 mL/min (>60) Glucose Level 120 MG/DL (74-106) H Calcium Level 7.4 MG/DL (8.5-10.1) L Total Bilirubin 0.4 MG/DL (0.2-1.0) Aspartate Amino Transf (AST/SGOT) 25 U/L (15-37) Alanine Aminotransferase (ALT/SGPT) 37 U/L (12-78) Alkaline Phosphatase 70 U/L (46-116) Pro-B-Type Natriuretic Peptide 970 pg/mL (0-125) H Total Protein 4.7 G/DL (6.4-8.2) L Albumin 1.3 G/DL (3.4-5.0) L Globulin 3.4 g/dL Albumin/Globulin Ratio 0.4 (1.0-2.7) L POC Whole Blood Glucose 100 MG/DL (74-106) Intake and Output 07/23/20 07/24/20 19:00 07:00 Intake Total 1040 ml 600 ml Output Total 900 ml 950 ml Balance 140 ml -350 ml Free Water 200 ml 100 ml Tube Feeding 600 ml 500 ml Other 240 ml Output Urine Total 900 ml 950 ml # Bowel Movements 1 Objective General: awake, responsive, open eyes, tracking. HEENT: NCAT, sclera anicteric, PERRL, EOMI Neck: Supple, tracheostomy site intact Lungs: mechanical breath sounds decreased air at the bases, no Wheeze, no rhonchi Heart: Regular rate and rhythm, normal S1/S2, no murmurs/gallops Abdomen: soft, not tender, not distended. + bowel sounds, Morbid Obesity, PEG site intact. : Gregorio cath Extremities: No Cyanosis , clubbing, Bilateral upper extremities less edema. left upper extremity PICC line. Neuro: limited secondary to patient status, unable to follow command, bilateral upper and lower extremities contracted. Assessment/Plan Assessment/Plan Problem List: (1) HCAP (healthcare-associated pneumonia) (2) Sepsis (3) Down's syndrome (4) Dysphagia S/P PEG (5) Seizure disorder (6) Hypothyroidism (7) Acute Hypoxemic respiratory failure (8) Persistent, high grade bacteremia- r/o endocarditis (9) LEANN (10) Bilateral pneumothorax status post chest tube placement and removal. Plan: Tolerated tube feeding @ 50 cc/hr Follow-up with laboratory and cultures On Hydrocortisone 25 mg IV daily Continue to monitor off abx DC Planning to subacute unit Guillaume Hawk MD Jul 24, 2020 09:09
[2020-07-24] MEDS: Levemir Flexpen SUBQ SCH ×2 (09:11→20:14)
--- NOTE | 2020-07-24 09:47 | General Progress Note ---
Subjective ROS Limited/Unobtainable: No Allergies: Coded Allergies: No Known Allergies (Unverified , 10/16/18) Objective Last 24 Hour Vital Signs Date Time Temp Pulse Resp B/P (MAP) Pulse Ox O2 Delivery O2 Flow Rate FiO2 07/24/20 08:00 98.1 53 20 126/64 (84) 99 07/24/20 08:00 30 07/24/20 08:00 49 07/24/20 08:00 Mechanical Ventilator Mechanical Ventilator Mechanical Ventilator 07/24/20 07:00 50 20 30 07/24/20 04:00 96.9 55 20 125/70 (88) 97 07/24/20 04:00 40 07/24/20 04:00 Mechanical Ventilator Mechanical Ventilator Mechanical Ventilator 07/24/20 03:49 44 07/24/20 02:16 54 20 40 07/24/20 01:21 137 07/24/20 00:00 Mechanical Ventilator Mechanical Ventilator Mechanical Ventilator 07/24/20 00:00 40 07/24/20 00:00 97.7 48 22 114/68 (83) 97 07/24/20 00:00 41 07/23/20 22:32 50 20 40 07/23/20 20:00 72 07/23/20 20:00 Mechanical Ventilator Mechanical Ventilator Mechanical Ventilator 07/23/20 20:00 96.4 59 20 127/71 (89) 98 07/23/20 20:00 40 07/23/20 19:02 51 20 40 07/23/20 16:00 Mechanical Ventilator Mechanical Ventilator Mechanical Ventilator 07/23/20 16:00 72 07/23/20 16:00 45 07/23/20 16:00 96.1 59 18 118/65 (82) 98 07/23/20 15:20 52 21 40 07/23/20 12:01 Mechanical Ventilator Mechanical Ventilator Mechanical Ventilator 07/23/20 12:00 45 07/23/20 12:00 51 07/23/20 11:41 97.9 51 18 111/50 (70) 96 07/23/20 11:29 49 20 45 Intake and Output 07/23/20 07/24/20 19:00 07:00 Intake Total 1040 ml 600 ml Output Total 900 ml 950 ml Balance 140 ml -350 ml Free Water 200 ml 100 ml Tube Feeding 600 ml 500 ml Other 240 ml Output Urine Total 900 ml 950 ml # Bowel Movements 1 Laboratory Tests 07/23/20 11:40: POC Whole Blood Glucose [Pending] 07/23/20 17:53: POC Whole Blood Glucose 129H 07/23/20 20:04: POC Whole Blood Glucose 106 07/24/20 00:55: POC Whole Blood Glucose 115H 07/24/20 04:00: White Blood Count 9.1, Red Blood Count 2.79L, Hemoglobin 8.7L, Hematocrit 25.8L, Mean Corpuscular Volume 92, Mean Corpuscular Hemoglobin 31.3H, Mean Corpuscular Hemoglobin Concent 33.8, Red Cell Distribution Width 17.4H, Platelet Count 106L , Mean Platelet Volume 8.4, Neutrophils (%) (Auto) 56.0, Lymphocytes (%) (Auto) 34.2, Monocytes (%) (Auto) 7.6, Eosinophils (%) (Auto) 1.1, Basophils (%) (Auto) 1.0, Sodium Level 143, Potassium Level 3.8, Chloride Level 111H, Carbon Dioxide Level 28, Anion Gap 4L, Blood Urea Nitrogen 16, Creatinine 0.6, Estimat Glomerular Filtration Rate > 60, Glucose Level 120H, Calcium Level 7.4L, Total Bilirubin 0.4, Aspartate Amino Transf (AST/SGOT) 25, Alanine Aminotransferase (ALT/SGPT) 37, Alkaline Phosphatase 70, Pro-B-Type Natriuretic Peptide 970H, Total Protein 4.7L, Albumin 1.3L, Globulin 3.4, Albumin/Globulin Ratio 0.4L 07/24/20 05:44: POC Whole Blood Glucose 100 Height (Feet): 5 Height (Inches): 3.00 Weight (Pounds): 173 General Appearance: no apparent distress EENT: normal ENT inspection Neck: supple Cardiovascular: normal rate Respiratory/Chest: decreased breath sounds Abdomen: normal bowel sounds, non tender, soft Extremities: non-tender Assessment/Plan Status: stable, unchanged Assessment/Plan: 1. History of Down syndrome. 2. Dysphagia with G-tube. 3. Seizure disorder. 4. Hypothyroidism. 5. LEANN. 6. Pneumonia. 7. Sepsis. fu H&H prn blood transfusion to keep HGB above 7 s/p blood transfusion ppi GTF hold GI procedures for now Nehemiah Perez MD Jul 24, 2020 09:47
--- NOTE | 2020-07-24 09:49 | NUR ---
CASE MANAGEMENT: REVIEW 07/24/20 SI: RESP FAILURE....NEW TRACH DOWN'S SYNDROME . PNEUMOTHORAX...S/P CHEST TUBE VS: T 96.9 HR 55 RR 20 B/P 125/70 SATS 97% ON MECH VENT FIO2 30 LABS: CL 111 GLU 120 CA 7.4 BNP 970 IS: IV SOLU CORTEF Q12 IV PROTONIX Q12H K-DUR GT Q12H : SDU DCP: PATIENT IS FROM [facility]
--- NOTE | 2020-07-24 10:00 | NUR ---
NURSE NOTES: Dr Allred at bedside,updated re pt's status,discharge orders given.
--- NOTE | 2020-07-24 10:02 | NUR ---
CASE MANAGEMENT: NOTE FIO2 30 DC REQUESTED CLINICALS FAXED TO [facility] @ [place]
--- NOTE | 2020-07-24 10:37 | Pulmonolgy Critical Care Note ---
Critical Care - Asmt/Plan Problems: (1) Acute respiratory failure (2) Pneumothorax (3) Bacteremia (4) Pneumonia (5) Sepsis (6) HCAP (healthcare-associated pneumonia) (7) Seizure disorder (8) Down's syndrome (9) Trisomy 21, Down syndrome Respiratory: monitor respiratory rate, adjust FIO2, CXR, other - saturating Renal: F/U I&O, other - continue lasix 20 qd, watch bun/creatinine, Check BNP and cxr in a few days Infectious Disease: check cultures Gastrointestinal: continue feedings/current rate Endocrine: monitor blood sugar Hematologic: transfuse if hgb<8.5 Neurologic: PRN Ativan, PRN Morphine, keep patient comfortable Prophylaxis: Protonix Time Spent (Minutes): 40 Notes Reviewed: 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, cardio, renal, ID, GI Discussed with: nurses, consultants, 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 - Objective Last 24 Hour Vital Signs Date Time Temp Pulse Resp B/P (MAP) Pulse Ox O2 Delivery O2 Flow Rate FiO2 07/24/20 09:53 40 07/24/20 09:00 30 07/24/20 08:00 98.1 53 20 126/64 (84) 99 07/24/20 08:00 30 07/24/20 08:00 49 07/24/20 08:00 Mechanical Ventilator Mechanical Ventilator Mechanical Ventilator 07/24/20 07:00 50 20 30 07/24/20 04:00 96.9 55 20 125/70 (88) 97 07/24/20 04:00 40 07/24/20 04:00 Mechanical Ventilator Mechanical Ventilator Mechanical Ventilator 07/24/20 03:49 44 07/24/20 02:16 54 20 40 07/24/20 01:21 137 07/24/20 00:00 Mechanical Ventilator Mechanical Ventilator Mechanical Ventilator 07/24/20 00:00 40 07/24/20 00:00 97.7 48 22 114/68 (83) 97 07/24/20 00:00 41 07/23/20 22:32 50 20 40 07/23/20 20:00 72 07/23/20 20:00 Mechanical Ventilator Mechanical Ventilator Mechanical Ventilator 07/23/20 20:00 96.4 59 20 127/71 (89) 98 07/23/20 20:00 40 07/23/20 19:02 51 20 40 07/23/20 16:00 Mechanical Ventilator Mechanical Ventilator Mechanical Ventilator 07/23/20 16:00 72 07/23/20 16:00 45 07/23/20 16:00 96.1 59 18 118/65 (82) 98 07/23/20 15:20 52 21 40 07/23/20 12:01 Mechanical Ventilator Mechanical Ventilator Mechanical Ventilator 07/23/20 12:00 45 07/23/20 12:00 51 07/23/20 11:41 97.9 51 18 111/50 (70) 96 07/23/20 11:29 49 20 45 Status: awake Condition: improving HEENT: atraumatic, normocephalic Neck: trach Lungs: rales, rhonchi Heart: HR/BP stable, edema Abdomen: soft, non-tender Extremities: no C/C/E Accucheck: 100 Critical Care - Subjective ROS Limited/Unobtainable: Yes Condition: improving EKG Rhythm: Sinus Rhythm FI02: 40 Vent Support Breath Rate: 20 Vent Support Mode: AC Vent Tidal Volume: 500 Sputum Amount: Small PEEP: 0.0 PIP: 33 Tube Feeding Amount: 25 I&O: Intake and Output 07/23/20 07/24/20 19:00 07:00 Intake Total 1040 ml 600 ml Output Total 900 ml 950 ml Balance 140 ml -350 ml Free Water 200 ml 100 ml Tube Feeding 600 ml 500 ml Other 240 ml Output Urine Total 900 ml 950 ml # Bowel Movements 1 CXR: 07/23 unchanged infiltrate vs edema ET-Tube: 7.5 ET Position: 23 Labs: Laboratory Tests Test 07/23/20 11:40 07/23/20 17:53 07/23/20 20:04 07/24/20 00:55 POC Whole Blood Glucose Pending 129 MG/DL (74-106) H 106 MG/DL (74-106) 115 MG/DL (74-106) H Test 07/24/20 04:00 07/24/20 05:44 White Blood Count 9.1 K/UL (4.8-10.8) Red Blood Count 2.79 M/UL (4.20-5.40) L Hemoglobin 8.7 G/DL (12.0-16.0) L Hematocrit 25.8 % (37.0-47.0) L Mean Corpuscular Volume 92 FL (80-99) Mean Corpuscular Hemoglobin 31.3 PG (27.0-31.0) H Mean Corpuscular Hemoglobin Concent 33.8 G/DL (32.0-36.0) Red Cell Distribution Width 17.4 % (11.6-14.8) H Platelet Count 106 K/UL (150-450) L Mean Platelet Volume 8.4 FL (6.5-10.1) Neutrophils (%) (Auto) 56.0 % (45.0-75.0) Lymphocytes (%) (Auto) 34.2 % (20.0-45.0) Monocytes (%) (Auto) 7.6 % (1.0-10.0) Eosinophils (%) (Auto) 1.1 % (0.0-3.0) Basophils (%) (Auto) 1.0 % (0.0-2.0) Sodium Level 143 MMOL/L (136-145) Potassium Level 3.8 MMOL/L (3.5-5.1) Chloride Level 111 MMOL/L (98-107) H Carbon Dioxide Level 28 MMOL/L (21-32) Anion Gap 4 mmol/L (5-15) L Blood Urea Nitrogen 16 mg/dL (7-18) Creatinine 0.6 MG/DL (0.55-1.30) Estimat Glomerular Filtration Rate > 60 mL/min (>60) Glucose Level 120 MG/DL (74-106) H Calcium Level 7.4 MG/DL (8.5-10.1) L Total Bilirubin 0.4 MG/DL (0.2-1.0) Aspartate Amino Transf (AST/SGOT) 25 U/L (15-37) Alanine Aminotransferase (ALT/SGPT) 37 U/L (12-78) Alkaline Phosphatase 70 U/L (46-116) Pro-B-Type Natriuretic Peptide 970 pg/mL (0-125) H Total Protein 4.7 G/DL (6.4-8.2) L Albumin 1.3 G/DL (3.4-5.0) L Globulin 3.4 g/dL Albumin/Globulin Ratio 0.4 (1.0-2.7) L POC Whole Blood Glucose 100 MG/DL (74-106) Elayne Allred MD Jul 24, 2020 10:37
--- NOTE | 2020-07-24 12:00 | NUR ---
NURSE NOTES: Oral care done tracheal oral secretions suctioned PRN.
--- NOTE | 2020-07-24 12:23 | Nephrology Progress Note ---
Assessment/Plan Problem List: (1) LEANN (acute kidney injury) (2) Respiratory failure requiring intubation (3) Down's syndrome (4) Seizure disorder (5) Hypothyroidism Assessment Acute renal failure, likely due to hypotension Acute respiratory distress, hypoxia Seizure disorder Hypothyroidism Down syndrome Full code Fluid challenge with IV fluids and albumin Midodrine for BP above 100 systolic Check TSH level Check Correct level Monitor renal parameters Urine studies Per orders Plan July 24: Labs reviewed. Renal parameters are stable. Continue per co nsultants. July 23: Labs reviewed. Renal parameters stable. Hemoglobin higher. Continue her consultants. July 22: Labs reviewed. Electrolyte abnormalities addressed. Hemoglobin lower. I suggest transfusion which I am deferring to PMD. Continue to monitor renal parameters. July 21: Labs reviewed. Magnesium supplement given. Hemoglobin 7.4. Defer transfusion to PMD. Continue to monitor electrolytes and renal parameters July 20: Due discontinuation of chest tube today. Trach to vent. Renal parameters stable. July 19: Trach to vent. Left chest tube to drain. Full code. Labs reviewed. Renal parameters stable. July 18: Trached and vent. Still has left chest tube to drain. No chemistry panel today. Continue per consultants. Patient full code. July 17: Patient now has trach connected to vent. Left chest tube remains in place. Patient full code. Continue per consultants. Labs reviewed. July 16: Discussed with RN. Remains on ventilator. Labs reviewed. Stable from renal standpoint of view. Patient due for tracheostomy when clinically stable. July 15: On ventilator. Left chest tube remains. Full code. Labs reviewed. Electrolyte abnormalities addressed. Continue per consultants. July 14: On ventilator. Tracheostomy postponed because patient is clinically unstable. Still have left chest tube draining. Labs reviewed. Electrolyte abnormalities addressed. Continue per consultants. July 13: Remains intubated on ventilator. Discussed with RN. Unclear if the patient is due for tracheostomy today or not. Apparently the patient was reintubated again yesterday. Patient has left chest tube. Electrolyte abnormalities addressed. July 12: Remains intubated on ventilator. Due for tracheostomy tomorrow. Left chest tube present. Patient is full code. Labs reviewed. Continue as is. July 11: Remains intubated on ventilator. Due for tracheostomy July 13. Has left-sided chest tube. Stable from renal standpoint to view. Continue per consultants. July 2: Remains intubated on ventilator. Electrolyte abnormalities addressed. Supplements ordered. July 09: Intubated on ventilator. Labs reviewed. Potassium supplement given. Remains bradycardic. Continue per consultants. July 08: Labs reviewed. Electrolyte abnormalities addressed. Heart rate remains bradycardic. Continue per cardiology. Continue to monitor renal parameters and electrolytes. July 07: Labs reviewed. Electrolyte abnormalities addressed and replaced. Medication list reviewed. Heart rate remains mid 50s. Continue as is. July 06: On ventilator. Full code. Heart rate low. Will discontinue Midodrin. Continue to rest. Electrolytes within normal limit. Discussed with RN. July 05: Remains intubated. Full code. No plan for tracheostomy yet. Labs reviewed. All acceptable. Continue same management July 04: Labs reviewed. Discussed with RN. Potassium and phosphorus and magnesium replacement ordered. Hemoglobin 9.5. Patient remains full code. Continue per consultants. July 03: Lab reviewed. Renal parameters stable. Full code. Intubated. Electrolyte abnormalities addressed and replacement done. July 02: Lab reviewed. Renal parameters stable. Full code. Intubated. Has right side chest tube. Continue per consultants. July 01: Lab reviewed. Renal parameters stable. Full code. Has right chest tube. Planning process for tracheostomy. Defer to chest and general surgeon. June 30: Labs reviewed. Renal parameters stable. Remains full code. Remains on ventilator. Due for tracheostomy tomorrow. Continue per consultants. Patient has a right chest tube in place at this time. June 29: Labs reviewed. Electrolyte imbalances addressed and supplemented. Remains full code and on ventilator. Continue to monitor renal parameters. Continue per consultants. June 28: Labs reviewed. Serum potassium again low today. Potassium supplement IV and through GT given. Patient remains full code and is on ventilator. Continue per consultants. Continue to monitor electrolytes and renal parameters. June 27: Labs reviewed. Abnormal electrolyte addressed. Remains full code. Remains vented. June 26: Day 27 of hospitalization. Full code. Labs reviewed. Hemoglobin down to 7.5. Electrolyte abnormalities addressed and corrections ordered. Continue to monitor renal parameters. Continue per consultants. Start on Levemir for blood sugar management. Questioning continuation of hydrocortisone? June 25: Labs reviewed. Potassium, phosphorus, hemoglobin, are all low. Potassium and phosphorus IV replacement given. Continue to monitor electrolytes and CBC. Patient remains full code. June 24: Lab reviewed. Low phosphorus low magnesium and low potassium was addressed. Hemoglobin drifting lower. Continue per consultants. Patient remains full code. June 23: Labs reviewed. Patient continues to be on ventilator. D5W for high sodium and also potassium chloride intravenously as supplement given. Hemoglobin 8.4. Continue to monitor electrolytes and renal parameters. June 22: Labs reviewed. Low potassium and high sodium noted. Hemoglobin 8.1 stable. Aim to correct abnormal electrolyte. Continue rest. Will give 2 boluses of D5W 500 cc. June 21: Lab reviewed. Abnormal electrolytes noted and addressed. June 20: Labs reviewed. Potassium supplement given. Patient remains full code. Continue per consultants. June 19: Lab reviewed. Electrolyte abnormalities addressed. Continue per pulmonary and ID. June 18: Lab reviewed. Status unchanged. Serum sodium 151 unchanged. Stable from renal standpoint of view. June 17: Labs reviewed. Status quo. D5W 500 cc IV ordered. Continue to monitor renal parameters. June 16: Status quo. Labs reviewed. Overall condition unchanged. Patient was transfused and hemoglobin higher. Continue current management. Patient remains full code. June 15: Status quo. Overall condition poor. Very low albumin. Edematous. Hypotensive. Hemoglobin lower. Anemia work-up ordered. I favor transfusion 2 units of packed RBCs. Patient remains full code. I favor supportive care only. Will discuss. June 14: Electrolyte abnormalities addressed. Serum creatinine lower. Continue per current management. June 13: Status unchanged. Lab reviewed. Serum potassium 2.7. IV potassium chloride ordered. Serum creatinine low at 1.6 stable. Blood pressure 90s systolic June 12: Status quo. Labs reviewed. Renal parameters stable. Serum creatinine down to 1.6. Medication list reviewed. Continues to be on midodrine. Continue per consultants. June 11: Status quo. Labs reviewed. Electrolytes adjusted. Serum creatinine down to 1.8. Continue per consultants. June 10: Status quo. Labs reviewed. Phosphorus supplement IV given. Serum creatinine 2. Continue per consultants. June 09: Requires less pressors. Albumin bolus given. 1 dose of Lasix IV ordered as the patient severely edematous. Patient serum albumin is very low. Continue per consultants. June 08: Continues to be intubated. Labs reviewed. Serum creatinine 1.9 unchanged. Blood pressure more stable. Off 1 of the pressors. Continue to monitor renal parameters. Continue per consultants. Patient now on hydrocortisone 100 mg every 8 hours. Will decrease IV fluid. Normal saline down to 50 cc an hour. June 07: Intubated. Labs reviewed. Creatinine 1.9 unchanged. Continue same treatment plan. Per consultants. Overall poor prognosis since the patient remains on pressors and her pulmonary status is worsening. June 06: Remains intubated. Labs reviewed. Creatinine 1.9. Blood pressure systolic 90s. Continue per consultants. June 05: Remains intubated. Labs reviewed. Serum creatinine lower to 2. Vancomycin level lower. Remains hypotensive on pressors. Will increase midodrine to 10 mg every 8 hours. Continue per consultants. Continue to monitor renal parameters. June 04: Patient now in ICU. Intubated. On pressors. Labs reviewed. Will increase midodrine. Aim to keep blood pressure over 100 systolic. Will give albumin bolus. Will check vancomycin level which was elevated when checked previously on June 01. Will monitor renal parameters. Continue per consultants. Subjective ROS Limited/Unobtainable: Yes Objective Objective Last 24 Hour Vital Signs Date Time Temp Pulse Resp B/P (MAP) Pulse Ox O2 Delivery O2 Flow Rate FiO2 07/24/20 11:50 98.8 50 20 113/62 (79) 93 07/24/20 11:20 52 20 40 07/24/20 09:53 40 07/24/20 09:00 30 07/24/20 08:00 98.1 53 20 126/64 (84) 99 07/24/20 08:00 30 07/24/20 08:00 49 07/24/20 08:00 Mechanical Ventilator Mechanical Ventilator Mechanical Ventilator 07/24/20 07:00 50 20 30 07/24/20 04:00 96.9 55 20 125/70 (88) 97 07/24/20 04:00 40 07/24/20 04:00 Mechanical Ventilator Mechanical Ventilator Mechanical Ventilator 07/24/20 03:49 44 07/24/20 02:16 54 20 40 07/24/20 01:21 137 07/24/20 00:00 Mechanical Ventilator Mechanical Ventilator Mechanical Ventilator 07/24/20 00:00 40 07/24/20 00:00 97.7 48 22 114/68 (83) 97 07/24/20 00:00 41 07/23/20 22:32 50 20 40 07/23/20 20:00 72 07/23/20 20:00 Mechanical Ventilator Mechanical Ventilator Mechanical Ventilator 07/23/20 20:00 96.4 59 20 127/71 (89) 98 07/23/20 20:00 40 07/23/20 19:02 51 20 40 07/23/20 16:00 Mechanical Ventilator Mechanical Ventilator Mechanical Ventilator 07/23/20 16:00 72 07/23/20 16:00 45 07/23/20 16:00 96.1 59 18 118/65 (82) 98 07/23/20 15:20 52 21 40 Intake and Output 07/23/20 07/24/20 19:00 07:00 Intake Total 1040 ml 600 ml Output Total 900 ml 950 ml Balance 140 ml -350 ml Free Water 200 ml 100 ml Tube Feeding 600 ml 500 ml Other 240 ml Output Urine Total 900 ml 950 ml # Bowel Movements 1 Laboratory Tests 07/23/20 17:53: POC Whole Blood Glucose 129H 07/23/20 20:04: POC Whole Blood Glucose 106 07/24/20 00:55: POC Whole Blood Glucose 115H 07/24/20 04:00: White Blood Count 9.1, Red Blood Count 2.79L, Hemoglobin 8.7L, Hematocrit 25.8L, Mean Corpuscular Volume 92, Mean Corpuscular Hemoglobin 31.3H, Mean Corpuscular Hemoglobin Concent 33.8, Red Cell Distribution Width 17.4H, Platelet Count 106L, Mean Platelet Volume 8.4, Neutrophils (%) (Auto) 56.0, Lymphocytes (%) (Auto) 34.2, Monocytes (%) (Auto) 7.6, Eosinophils (%) (Auto) 1.1, Basophils (%) (Auto) 1.0, Sodium Level 143, Potassium Level 3.8, Chloride Level 111H, Carbon Dioxide Level 28, Anion Gap 4L, Blood Urea Nitrogen 16, Creatinine 0.6, Estimat Glomerular Filtration Rate > 60, Glucose Level 120H, Calcium Level 7.4L, Total Bilirubin 0.4, Aspartate Amino Transf (AST/SGOT) 25, Alanine Aminotransferase (ALT/SGPT) 37, Alkaline Phosphatase 70, Pro-B-Type Natriuretic Peptide 970H, Total Protein 4.7L, Albumin 1.3L, Globulin 3.4, Albumin/Globulin Ratio 0.4L 07/24/20 05:44: POC Whole Blood Glucose 100 10/16/20 11:48: POC Whole Blood Glucose 123H Height (Feet): 5 Height (Inches): 3.00 Weight (Pounds): 173 General Appearance: no apparent distress EENT: other - Trach to vent Cardiovascular: bradycardia Respiratory/Chest: decreased breath sounds Abdomen: distended Keron Pitt MD Jul 24, 2020 12:23
--- NOTE | 2020-07-24 12:47 | Infectious Diseases Prog Note ---
Assessment/Plan ASSESSMENT: sp code blue 06/03 Septic Shock; SP Fever, recurrent- low grade -SP Leukocytosis; recurrent; SP 10/5 u/a -, nit neg, leuk +2; ucx PsA (I Genta); colonizer sp cx P, mirabilsi (R levo); colonzier -06/27 Bcx Neg -06/17 u/a no pyuria -06/16 Bcx Neg(Picc line) -06/14 Bcx Neg ucx Neg sp cx C. parapsilopsis -06/03 u/a no pyuria Pneumonia.- COVID 19 neg x3 Acute hypoxic resp failure on VM> NRB 15l 100%; hypoxic on ABG> now VDRF 06/03- Fio2 80% >100% 06/05> 60% 06/09 >80% 06/10 >95% 06/18 >90% 06/22 >60% 06/23 R tension Pneumothroax sp CT 06/29 07/17 sp trach 07/17 CXR: Diffuse airspace opacities. 07/16 CXR: bilateral infiltrates are all unchanged. 07/13 CXR: Extensive bilateral airspace opacities, right greater than left, consistent with multifocal infiltrate worse pulmonary edema. This is similar in appearance to the prior study. Worsening, small left pleural effusion. This may be secondary to redistribution as the right-sided pleural effusion has mildly improved. -06/30 CXR: Interim complete reexpansion of right lung without evidence of residual pneumothorax. Bilateral diffuse and extensive infiltrates. Markedly improved chest wall subcutaneous emphysema -06/29 CXR: Interim reexpansion of previously demonstrated right pneumothorax, status post large bore chest tube placement. -06/22 CXR: Improved aeration of both lungs. -06/13 CXR:Small bilateral pleural effusions with minor edema. Stable edema with mild worsening in the degree of pleural effusion on the right. -06/09 sp cx Neg 06/08 CXR: Extensive bilateral interstitial and airspace disease appears similar to the prior exam. Moderate to large bilateral pleural effusions appear unchanged. 06/05 CXR: Increasing left upper lobe dense consolidation and likely increasing bilateral pleural fluid. Persistent diffuse dense consolidation elsewhere -06/03 sp cx normal resp marie -06/02 CXR: Increased atelectasis of the right lung, since prior exam of 3 days earlier. New or increased right pleural effusion. Increased left basilar consolidation and/or pleural fluid -COVID Rapid PCR neg 05/31, 05/31, 06/03 -05/30 spc x Group G strep -05/30 CXR: Reduced lung volumes. Patchy bilateral predominantly interstitial pulmonary opacities. Could be from edema and/or pneumonia. There is a broader differential. -legionella ag urine, blasto ab, Histo ab, HIV ab screen, FRANCIS, ANCA neg Persistent, high grade bacteremia- -05/30 Bcx 4/4 sets S. haemolyticus; 05/31 Bcx 3/4 S/ epi; 06/04 Bcx 1.4 S. warnerri; 06/06 Bcx Neg -2d echo: no vegetaions seen ua/ wbc 10-15, nit neg, leuk +1; ucx Neg LEANN; -supratherapeutic vanco levels -Seizure disorder. - Hypothyroidism. - Down syndrome. History of PEG tube placement. [facility] resident PLAN: Monitor off abx unless febrile, increasing WBC and/or HD unstable 06/22 SP Meropenem #18, IV Amikacin #7 06/12/20 SP Daptomycin #11 06/10 SP MIcafungin #7, Linezolid #5 06/05 SP Azithromycin #7/7 06/03 SP Ceftriaxone #2 06/02 SP IV Vancomycin #4, Zosyn #4 05/30 SP Cefepime x1, Flagyl x1 - Monitor CBC, BMP. .f/u cx - COVID neg x3 - Monitor chest x-ray. -PEG/Trach care -aspiration precautions -discharge planning to SNF-needs to be FIO2 30% or below Thank you, Dr. Allred, for allowing me to participate in the care of this patient. I will follow the patient with you at this hospitalization. Discussed with RN Subjective Allergies: Coded Allergies: No Known Allergies (Unverified , 10/16/18) afebrile no leukocytosis discharge planning Objective Last 24 Hour Vital Signs Date Time Temp Pulse Resp B/P (MAP) Pulse Ox O2 Delivery O2 Flow Rate FiO2 07/24/20 12:00 Mechanical Ventilator Mechanical Ventilator Mechanical Ventilator 07/24/20 12:00 40 07/24/20 11:50 98.8 50 20 113/62 (79) 93 07/24/20 11:20 52 20 40 07/24/20 09:53 40 10/16/20 09:00 30 07/24/20 08:00 98.1 53 20 126/64 (84) 99 07/24/20 08:00 30 07/24/20 08:00 49 07/24/20 08:00 Mechanical Ventilator Mechanical Ventilator Mechanical Ventilator 07/24/20 07:00 50 20 30 07/24/20 04:00 96.9 55 20 125/70 (88) 97 07/24/20 04:00 40 07/24/20 04:00 Mechanical Ventilator Mechanical Ventilator Mechanical Ventilator 07/24/20 03:49 44 07/24/20 02:16 54 20 40 07/24/20 01:21 137 07/24/20 00:00 Mechanical Ventilator Mechanical Ventilator Mechanical Ventilator 07/24/20 00:00 40 07/24/20 00:00 97.7 48 22 114/68 (83) 97 07/24/20 00:00 41 07/23/20 22:32 50 20 40 07/23/20 20:00 72 07/23/20 20:00 Mechanical Ventilator Mechanical Ventilator Mechanical Ventilator 07/23/20 20:00 96.4 59 20 127/71 (89) 98 07/23/20 20:00 40 07/23/20 19:02 51 20 40 07/23/20 16:00 Mechanical Ventilator Mechanical Ventilator Mechanical Ventilator 07/23/20 16:00 72 07/23/20 16:00 45 07/23/20 16:00 96.1 59 18 118/65 (82) 98 07/23/20 15:20 52 21 40 Height (Feet): 5 Height (Inches): 3.00 Weight (Pounds): 173 HEENT: . trach in place CHEST: Coarse breathing sounds. HEART: S1 and S2. ABDOMEN: Soft. PEG tube in place. SKIN: no rash Laboratory Tests Test 07/23/20 17:53 07/23/20 20:04 07/24/20 00:55 07/24/20 04:00 POC Whole Blood Glucose 129 MG/DL (74-106) H 106 MG/DL (74-106) 115 MG/DL (74-106) H White Blood Count 9.1 K/UL (4.8-10.8) Red Blood Count 2.79 M/UL (4.20-5.40) L Hemoglobin 8.7 G/DL (12.0-16.0) L Hematocrit 25.8 % (37.0-47.0) L Mean Corpuscular Volume 92 FL (80-99) Mean Corpuscular Hemoglobin 31.3 PG (27.0-31.0) H Mean Corpuscular Hemoglobin Concent 33.8 G/DL (32.0-36.0) Red Cell Distribution Width 17.4 % (11.6-14.8) H Platelet Count 106 K/UL (150-450) L Mean Platelet Volume 8.4 FL (6.5-10.1) Neutrophils (%) (Auto) 56.0 % (45.0-75.0) Lymphocytes (%) (Auto) 34.2 % (20.0-45.0) Monocytes (%) (Auto) 7.6 % (1.0-10.0) Eosinophils (%) (Auto) 1.1 % (0.0-3.0) Basophils (%) (Auto) 1.0 % (0.0-2.0) Sodium Level 143 MMOL/L (136-145) Potassium Level 3.8 MMOL/L (3.5-5.1) Chloride Level 111 MMOL/L (98-107) H Carbon Dioxide Level 28 MMOL/L (21-32) Anion Gap 4 mmol/L (5-15) L Blood Urea Nitrogen 16 mg/dL (7-18) Creatinine 0.6 MG/DL (0.55-1.30) Estimat Glomerular Filtration Rate > 60 mL/min (>60) Glucose Level 120 MG/DL (74-106) H Calcium Level 7.4 MG/DL (8.5-10.1) L Total Bilirubin 0.4 MG/DL (0.2-1.0) Aspartate Amino Transf (AST/SGOT) 25 U/L (15-37) Alanine Aminotransferase (ALT/SGPT) 37 U/L (12-78) Alkaline Phosphatase 70 U/L (46-116) Pro-B-Type Natriuretic Peptide 970 pg/mL (0-125) H Total Protein 4.7 G/DL (6.4-8.2) L Albumin 1.3 G/DL (3.4-5.0) L Globulin 3.4 g/dL Albumin/Globulin Ratio 0.4 (1.0-2.7) L Test 07/24/20 05:44 07/24/20 11:48 POC Whole Blood Glucose 100 MG/DL (74-106) 123 MG/DL (74-106) H Current Medications Medications (Trade) Dose Ordered Sig/Katy Route PRN Reason Start Time Stop Time Status Last Admin Dose Admin Acetaminophen (Tylenol) 650 mg Q4H PRN GT For Pain 07/01/20 17:15 07/31/20 17:14 07/10/20 17:46 Chlorhexidine Gluconate (Alla-Hex 2%) 1 applic DAILY@2000 TOPIC 06/08/20 20:00 09/06/20 19:59 07/23/20 20:08 Clotrimazole (Lotrimin) 1 applic Q12HR TOPIC 06/07/20 13:00 09/05/20 12:59 07/24/20 09:07 Dextrose (Dextrose 50%) 25 ml Q30M PRN IV Hypoglycemia 06/03/20 11:30 08/28/20 11:29 Dextrose (Dextrose 50%) 50 ml Q30M PRN IV Hypoglycemia 06/03/20 11:30 08/28/20 11:29 Furosemide (Lasix) 20 mg DAILY IV 07/24/20 11:00 08/23/20 10:59 07/24/20 11:10 Hydrocortisone (Solu-CORTEF) 25 mg DAILY IV 07/24/20 09:00 10/15/20 08:59 07/24/20 09:06 Insulin Aspart (NovoLOG) Q6HR SUBQ 06/26/20 12:00 09/24/20 11:59 07/22/20 17:31 Insulin Detemir (Levemir) 10 units Q12HR SUBQ 06/26/20 10:00 09/24/20 09:59 07/24/20 09:11 Levothyroxine Sodium (Synthroid) 75 mcg DAILY@0630 GT 07/08/20 06:30 08/07/20 06:29 07/24/20 05:40 Pantoprazole (Protonix) 40 mg EVERY 12 HOURS IVP 07/06/20 21:00 08/05/20 20:59 07/24/20 09:06 Potassium Chloride (K-Dur) 40 meq EVERY 12 HOURS GT 07/04/20 21:00 09/26/20 12:14 07/24/20 09:07 Suki Camejo M.D. Jul 24, 2020 12:47
--- NOTE | 2020-07-24 13:46 | Surgery Progress Note ---
Surgery Progress Note Subjective Procedure Performed removal left chest tube Additional Comments no acute events no n/v labs okay exam stable Objective Last 24 Hour Vital Signs Date Time Temp Pulse Resp B/P (MAP) Pulse Ox O2 Delivery O2 Flow Rate FiO2 07/24/20 12:00 Mechanical Ventilator Mechanical Ventilator Mechanical Ventilator 07/24/20 12:00 40 07/24/20 11:50 98.8 50 20 113/62 (79) 93 07/24/20 11:20 52 20 40 07/24/20 09:53 40 07/24/20 09:00 30 07/24/20 08:00 98.1 53 20 126/64 (84) 99 07/24/20 08:00 30 07/24/20 08:00 49 07/24/20 08:00 Mechanical Ventilator Mechanical Ventilator Mechanical Ventilator 07/24/20 07:00 50 20 30 07/24/20 04:00 96.9 55 20 125/70 (88) 97 07/24/20 04:00 40 07/24/20 04:00 Mechanical Ventilator Mechanical Ventilator Mechanical Ventilator 07/24/20 03:49 44 07/24/20 02:16 54 20 40 07/24/20 01:21 137 07/24/20 00:00 Mechanical Ventilator Mechanical Ventilator Mechanical Ventilator 07/24/20 00:00 40 07/24/20 00:00 97.7 48 22 114/68 (83) 97 07/24/20 00:00 41 07/23/20 22:32 50 20 40 07/23/20 20:00 72 07/23/20 20:00 Mechanical Ventilator Mechanical Ventilator Mechanical Ventilator 07/23/20 20:00 96.4 59 20 127/71 (89) 98 07/23/20 20:00 40 07/23/20 19:02 51 20 40 07/23/20 16:00 Mechanical Ventilator Mechanical Ventilator Mechanical Ventilator 07/23/20 16:00 72 07/23/20 16:00 45 07/23/20 16:00 96.1 59 18 118/65 (82) 98 07/23/20 15:20 52 21 40 I&O Intake and Output 07/23/20 07/24/20 19:00 07:00 Intake Total 1040 ml 600 ml Output Total 900 ml 950 ml Balance 140 ml -350 ml Free Water 200 ml 100 ml Tube Feeding 600 ml 500 ml Other 240 ml Output Urine Total 900 ml 950 ml # Bowel Movements 1 Dressing: saturated Cardiovascular: RSR Respiratory: decreased breath sounds Abdomen: soft, non-tender, present bowel sounds Extremities: no tenderness, no cyanosis Laboratory Tests Test 07/23/20 17:53 07/23/20 20:04 07/24/20 00:55 07/24/20 04:00 POC Whole Blood Glucose 129 MG/DL (74-106) H 106 MG/DL (74-106) 115 MG/DL (74-106) H White Blood Count 9.1 K/UL (4.8-10.8) Red Blood Count 2.79 M/UL (4.20-5.40) L Hemoglobin 8.7 G/DL (12.0-16.0) L Hematocrit 25.8 % (37.0-47.0) L Mean Corpuscular Volume 92 FL (80-99) Mean Corpuscular Hemoglobin 31.3 PG (27.0-31.0) H Mean Corpuscular Hemoglobin Concent 33.8 G/DL (32.0-36.0) Red Cell Distribution Width 17.4 % (11.6-14.8) H Platelet Count 106 K/UL (150-450) L Mean Platelet Volume 8.4 FL (6.5-10.1) Neutrophils (%) (Auto) 56.0 % (45.0-75.0) Lymphocytes (%) (Auto) 34.2 % (20.0-45.0) Monocytes (%) (Auto) 7.6 % (1.0-10.0) Eosinophils (%) (Auto) 1.1 % (0.0-3.0) Basophils (%) (Auto) 1.0 % (0.0-2.0) Sodium Level 143 MMOL/L (136-145) Potassium Level 3.8 MMOL/L (3.5-5.1) Chloride Level 111 MMOL/L (98-107) H Carbon Dioxide Level 28 MMOL/L (21-32) Anion Gap 4 mmol/L (5-15) L Blood Urea Nitrogen 16 mg/dL (7-18) Creatinine 0.6 MG/DL (0.55-1.30) Estimat Glomerular Filtration Rate > 60 mL/min (>60) Glucose Level 120 MG/DL (74-106) H Calcium Level 7.4 MG/DL (8.5-10.1) L Total Bilirubin 0.4 MG/DL (0.2-1.0) Aspartate Amino Transf (AST/SGOT) 25 U/L (15-37) Alanine Aminotransferase (ALT/SGPT) 37 U/L (12-78) Alkaline Phosphatase 70 U/L (46-116) Pro-B-Type Natriuretic Peptide 970 pg/mL (0-125) H Total Protein 4.7 G/DL (6.4-8.2) L Albumin 1.3 G/DL (3.4-5.0) L Globulin 3.4 g/dL Albumin/Globulin Ratio 0.4 (1.0-2.7) L Test 07/24/20 05:44 07/24/20 11:48 POC Whole Blood Glucose 100 MG/DL (74-106) 123 MG/DL (74-106) H Plan Problems: (1) Respiratory distress Assessment & Plan: Respiratory insufficiency requiring prolonged ventilator support. Patient on minimal vent settings right now currently in stable but unfortunately not safe for extubation. Tracheostomy is indicated recommended. I discussed case with pulmonology team ICU team medical teams. Patient unable to make decisions and her current condition and given her history. The care team has been contacted and will be reviewed for evaluation and consideration of the tracheostomy. If consented I think it is reasonable for tracheostomy given patient's current CODE STATUS care plan and goals of care. Extubation his current status is potentially high risk for reintubation emergency complication. We will plan for tracheostomy if consent is obtained. Thank you for let me participate patient's care will follow with recommendations will plan for trach when ready wean fi02 s/p trach 10?8 (2) Encephalopathy chronic (3) Dysphagia (4) Down's syndrome (5) Sepsis Assessment & Plan: DAILY ESTIMATED NEEDS: Needs based on CRITICAL CARE, 50kg 22-28 kcals/kg 8739-9925 total kcals 1.25-2 g protein/kg 63-100 g total protein 25-30 mL/kg 2006-3924 total fluid mLs NUTRITION DIAGNOSIS: Swallowing difficulty r/t dysphagia as evidenced by pt w/ Downs Syndrome, PEG dep for all nutritional needs, now intubated, off pressor support pending trach placement. CURRENT TF:Vital AF 1.2 @ 50ml/hr x 22 hrs (On Synthroid QD)- held for procedure ENTERAL NUTRITION RECOMMENDATIONS: Glucerna 1.2 @ 50ml/hr x 22 hrs to provide 1100ml, 1320 kcal, 66g prot, 886ml free wa ter * Rec TF change to Glucerna 1.2 for carb control formula. Start @30ml/hr, advance as tolerated to goal. * Hold 1 hr before and after Synthroid med * HOB over 30 degrees/ water flush per MD ADDITIONAL RECOMMENDATIONS: 1) Ht of 61 inches per SNF; recalibrate bed scale for accurate CBW 2) Add NISS: BGs elevated on Solucortef-> NOW ON NISS + LEVEMIR 3) Monitor hemodynamic stability: OFF PRESSOR SUPPORT 4) Wound healing: add Vit C 250mg QD + continue [place] BID 5) Monitor lytes, replete as needed (lytes wnl) 6) Probiotics for diarrhea -> none noted . (6) Acute respiratory failure (7) Pneumonia (8) Trisomy 21, Down syndrome (9) LEANN (acute kidney injury) (10) Bacteremia (11) Hypokalemia (12) Anemia (13) Diarrhea (14) Hypernatremia (15) Pneumothorax (16) Pneumothorax, right Assessment & Plan: right ptx. s/p chest tube tube removed 07/11 left ptx tube placed 07/[address] to water seal chest tube removed 07/20 (17) Cardiac arrest (18) ARDS (adult respiratory distress syndrome) (19) Septic shock (20) HCAP (healthcare-associated pneumonia) (21) Respiratory failure requiring intubation (22) Seizure disorder (23) Hypothyroidism Mark Gordon Jul 24, 2020 13:46
--- NOTE | 2020-07-24 15:35 | NUR ---
discharge disposition: please read patient to be discharged to [facility] [address] [facility] room 210 T: [phone]>> CALL FOR REPORT LIFELINE W/ RT ETA 1730 CM S/W JUDY AT [facility] TO MAKE HER AWARE OF DC PLAN TRANSFER REPORT TO BE PROVIDED
--- NOTE | 2020-07-24 17:00 | NUR ---
NURSE NOTES: bed bath given ,Gregorio cath removed,feeding discontinued ,[employer]icket [employer] time for ambulance is at 1700.
--- NOTE | 2020-07-24 17:00 | NUR ---
NURSE NOTES: Called [facility],report given to Radha Bonds,updated re pt's status,,V/S ,medications,diet and BM.Family member Sinai Corwin informed re pt's discharge back to [facility],by leach cell operator Edwina Toledo.
--- NOTE | 2020-07-24 18:00 | NUR ---
NURSE NOTES: Report given to ambulance moises,unable to pick up driver pt since BP was 98/52,they ll come back after 2 hrs.
--- NOTE | 2020-07-24 18:50 | Cardiology Progress Note ---
Assessment/Plan Assessment/Plan sepsis respiratory failure ards renal insuf bacteremia abn cardiac enzyme due to demand sinus rafael stable thrombocytopenia resolved hypernatremia pneumothorax now s/p chest tube on the left now thrombocytopenia vent support tele personally reviewed sinus rafael bp ok watch plt Subjective ROS Limited/Unobtainable: Yes Subjective on a vent not communicative AWAKE Objective Last 24 Hour Vital Signs Date Time Temp Pulse Resp B/P (MAP) Pulse Ox O2 Delivery O2 Flow Rate FiO2 07/24/20 16:00 Mechanical Ventilator Mechanical Ventilator Mechanical Ventilator 07/24/20 16:00 40 07/24/20 16:00 53 07/24/20 16:00 98.6 59 20 98/48 (65) 96 07/24/20 15:20 60 20 40 07/24/20 14:00 30 07/24/20 12:00 Mechanical Ventilator Mechanical Ventilator Mechanical Ventilator 07/24/20 12:00 40 07/24/20 12:00 51 07/24/20 11:50 98.8 50 20 113/62 (79) 93 07/24/20 11:20 52 20 40 07/24/20 09:53 40 07/24/20 09:00 30 07/24/20 08:00 98.1 53 20 126/64 (84) 99 07/24/20 08:00 30 07/24/20 08:00 49 07/24/20 08:00 Mechanical Ventilator Mechanical Ventilator Mechanical Ventilator 07/24/20 07:00 50 20 30 07/24/20 04:00 96.9 55 20 125/70 (88) 97 07/24/20 04:00 40 07/24/20 04:00 Mechanical Ventilator Mechanical Ventilator Mechanical Ventilator 07/24/20 03:49 44 07/24/20 02:16 54 20 40 07/24/20 01:21 137 07/24/20 00:00 Mechanical Ventilator Mechanical Ventilator Mechanical Ventilator 07/24/20 00:00 40 07/24/20 00:00 97.7 48 22 114/68 (83) 97 07/24/20 00:00 41 07/23/20 22:32 50 20 40 07/23/20 20:00 72 07/23/20 20:00 Mechanical Ventilator Mechanical Ventilator Mechanical Ventilator 07/23/20 20:00 96.4 59 20 127/71 (89) 98 07/23/20 20:00 40 07/23/20 19:02 51 20 40 General Appearance: no apparent distress, alert, on vent, patient on isolation Intake and Output 07/23/20 07/24/20 19:00 07:00 Intake Total 1040 ml 600 ml Output Total 900 ml 950 ml Balance 140 ml -350 ml Free Water 200 ml 100 ml Tube Feeding 600 ml 500 ml Other 240 ml Output Urine Total 900 ml 950 ml # Bowel Movements 1 Laboratory Tests Test 07/23/20 20:04 07/24/20 00:55 07/24/20 04:00 07/24/20 05:44 POC Whole Blood Glucose 106 MG/DL (74-106) 115 MG/DL (74-106) H 100 MG/DL (74-106) White Blood Count 9.1 K/UL (4.8-10.8) Red Blood Count 2.79 M/UL (4.20-5.40) L Hemoglobin 8.7 G/DL (12.0-16.0) L Hematocrit 25.8 % (37.0-47.0) L Mean Corpuscular Volume 92 FL (80-99) Mean Corpuscular Hemoglobin 31.3 PG (27.0-31.0) H Mean Corpuscular Hemoglobin Concent 33.8 G/DL (32.0-36.0) Red Cell Distribution Width 17.4 % (11.6-14.8) H Platelet Count 106 K/UL (150-450) L Mean Platelet Volume 8.4 FL (6.5-10.1) Neutrophils (%) (Auto) 56.0 % (45.0-75.0) Lymphocytes (%) (Auto) 34.2 % (20.0-45.0) Monocytes (%) (Auto) 7.6 % (1.0-10.0) Eosinophils (%) (Auto) 1.1 % (0.0-3.0) Basophils (%) (Auto) 1.0 % (0.0-2.0) Sodium Level 143 MMOL/L (136-145) Potassium Level 3.8 MMOL/L (3.5-5.1) Chloride Level 111 MMOL/L (98-107) H Carbon Dioxide Level 28 MMOL/L (21-32) Anion Gap 4 mmol/L (5-15) L Blood Urea Nitrogen 16 mg/dL (7-18) Creatinine 0.6 MG/DL (0.55-1.30) Estimat Glomerular Filtration Rate > 60 mL/min (>60) Glucose Level 120 MG/DL (74-106) H Calcium Level 7.4 MG/DL (8.5-10.1) L Total Bilirubin 0.4 MG/DL (0.2-1.0) Aspartate Amino Transf (AST/SGOT) 25 U/L (15-37) Alanine Aminotransferase (ALT/SGPT) 37 U/L (12-78) Alkaline Phosphatase 70 U/L (46-116) Pro-B-Type Natriuretic Peptide 970 pg/mL (0-125) H Total Protein 4.7 G/DL (6.4-8.2) L Albumin 1.3 G/DL (3.4-5.0) L Globulin 3.4 g/dL Albumin/Globulin Ratio 0.4 (1.0-2.7) L Test 07/24/20 11:48 07/24/20 18:42 POC Whole Blood Glucose 123 MG/DL (74-106) H 108 MG/DL (74-106) H Josue Pantoja MD Jul 24, 2020 18:50
--- NOTE | 2020-07-24 19:10 | NUR ---
NURSE HAND-OFF REPORT: Important Events on Shift:pt for discharge to [facility] Patient Status: stable Diet: Vital AF1.2 at 50 ml/hr GT Pending Orders: N/A Pending Results/Labs:N/A Pending MD notification:N/A Latest Vital Signs: Temperature 98.6 , Pulse 50 , B/P 98 /48 , Respiratory Rate 20 , O2 SAT 96 , Mechanical Ventilator, O2 Flow Rate 15.0 . Vital Sign Comment: stable EKG Rhythm: Sinus Bradycardia Rhythm change?: N Notified?: N -Dr Arlin PRAKASH Response: No New Orders Received Latest Osorio Fall Score: 70 Fall Risk: High Risk Safety Measures: Call light Within Reach, Bed Alarm Zone 1, Side Rails Side Rails x3, Bed position Low and Locked. Fall Precautions: Yellow Socks Report given to Devaughn LUJAN.
--- NOTE | 2020-07-24 19:42 | NUR ---
NURSE NOTES: Received report from Sheyla Davis, pt. in bed awake- with eyes open, no signs or symptoms of acute cardiac or respiratory distress noted, bed alarm on, side rails up x's 3 and safety brakes engaged, bed locked in position, pt. appears to be sating well on current vent settings well- AC 20, TV 500, Fio2 at 45% and peep 5- no distress noted, pt. feeding stopped prior shift as pt. is awaiting to be discharged- no residual noted, Gregorio intact and draining to gravity, side rails padded for seizure precautions- no seizure activity noted- upon assessment, pt. appears clean and dry, JODY PICC intact and patent- TKO, safety measures continued, Aspiration precautions observed, skin precautions observed, will continue with plan of care. per endorsement to remove PICC line prior to discharge. [facility] ambulance will belt picker pt. around 2029.
[2020-07-24] MEDS: Dyna-Hex 2% Top Sol 2oz TOPIC SCH (20:09)
--- NOTE | 2020-07-24 23:01 | NUR ---
NURSE NOTES: report given to Chris with [facility] ambulance- pt. remains stable upon d/c- last BS 82- aware to have Western start feeding- to prevent Hypoglycemia.
[2020-07-24] MEDS ORDERED: NS 275ml ONE ×2 (23:26)
--- NOTE | 2020-07-26 17:00 | Discharge Summary ---
Discharge Summary Discharge Summary _ DATE OF ADMISSION: 05/30/2020 DATE OF DISCHARGE: 07/24/2020 DISCHARGED BY: Dr. Elayne Allred CONSULTANTS: Dr. Josue Perez [facility]SE: Patient is a 59-year-old female with history of Down syndrome, seizure disorder, hypothyroidism, and dysphagia with PEG tube, presented to ED due to complaints of shortness of breath. Patient is a resident of [facility]. According to the staff at the clinic in the left hand, patient began to experience shortness of breath on 05/30/2020. Patient presented to [place] emergency room. She was found to be hypoxic with O2 saturation down in the 80s. Chest x-ray revealed bilateral interstitial opacities consistent with pneumonia. Blood work did not show any leukocytosis. Hemoglobin and hematocrit were stable. Electrolytes were normal. COVID-19 was negative. Patient was admitted for pneumonia. She was placed empirically on vancomycin and ceftriaxone. She was placed on seizure precautions. She was continued on Keppra and Depakote. She was given Synthroid for hypothyroidism. She was resumed on G-tube feeding. She was given supplemental O2. Pathology Transcriptionist and infectious disease specialist were consulted. Antibiotic was changed to vancomycin and Zosyn. She was given Zithromax for atypical coverage. On 06/03/2020, patient had a CODE BLUE due to low blood pressure. Creatinine ruben to 1.8. She was placed on BiPAP support. She was given IV fluids and albumin. She was started on midodrine. Patient was transferred to ICU. The following day, patient was dyspneic with increased work of breathing. She was hypoxic to low 90s percentile on BiPAP. Patient was orally intubated and a central line was inserted to the left femoral vein for IV pressors. Patient has persistent high-grade bacteremia. 4/4 blood culture sets showed growth of staph hemolyticus. Echocardiogram did not show any vegetations. Acute kidney injury was worsening. Antibiotic was changed to daptomycin, meropenem and micafungin. Urine culture did not isolate any growth. Stool OB was positive. Subcutaneous Heparin was discontinued. Patient was g iven SCDs. FINAL DIAGNOSES: DISPOSITION: I have been assigned to complete a discharge summary on this account, I was not involved with the patient's management.--GALE Allen Jacqueline Robles NP Jul 26, 2020 17:00
--- NOTE | 2020-07-26 18:25 | Discharge Summary ---
Discharge Summary Discharge Summary _ DATE OF ADMISSION: 05/30/2020 DATE OF DISCHARGE: 07/24/2020 DISCHARGED BY: Dr. Elayne Allerd CONSULTANTS: Dr. Josue Perez [facility]SE: Patient is a 59-year-old female with history of Down syndrome, seizure disorder, hypothyroidism, and dysphagia with PEG tube, presented to ED due to complaints of shortness of breath. Patient is a resident of [facility]. According to the staff at the clinic in the left hand, patient began to experience shortness of breath on 05/30/2020. Patient presented to [place] emergency room. She was found to be hypoxic with O2 saturation down in the 80s. Chest x-ray revealed bilateral interstitial opacities consistent with pneumonia. Blood work did not show any leukocytosis. Hemoglobin and hematocrit were stable. Electrolytes were normal. COVID-19 was negative. Patient was admitted for pneumonia. She was placed empirically on vancomycin and ceftriaxone. She was placed on seizure precautions. She was continued on Keppra and Depakote. She was given Synthroid for hypothyroidism. She was resumed on G-tube feeding. She was given supplemental O2. Field Crop Farmer and infectious disease specialist were consulted. Antibiotic was changed to vancomycin and Zosyn. She was given Zithromax for atypical coverage. On 06/03/2020, patient had a CODE BLUE due to low blood pressure. Creatinine ruben to 1.8. She was placed on BiPAP support. She was given IV fluids and albumin. She was started on midodrine. Patient was transferred to ICU. The following day, patient was dyspneic with increased work of breathing. She was hypoxic to low 90s percentile on BiPAP. Patient was orally intubated and a central line was inserted to the left femoral vein for IV pressors. Patient has persistent high-grade bacteremia. 4/4 blood culture sets showed growth of staph hemolyticus. Echocardiogram did not show any vegetations. Acute kidney injury was worsening. Antibiotic was changed to daptomycin, meropenem and micafungin. Urine culture did not isolate any growth. Stool OB was positive. Subcutaneous Heparin was discontinued. Patient was g iven SCDs. COVID-19 testing x3 were negative. She was started on IV hydrocortisone. Troponin was elevated to 0.057. EKG showed sinus rhythm with right bundle branch block. Patient did not have any previous history of cardiac disease. Echocardiogram on admission showed normal left ventricular function with EF 65%, no significant valve lesions. Elevated troponin likely due to demand ischemia in the setting of respiratory failure and hypotension. Needle Leader was consulted for fungal infection of bilateral feet. Advised Chlortrimazole cream. There was laceration on the tip of the right second toe. Applied Betadine. Surveillance chest x-ray showed consolidation on the left upper lobe. Patient had moderate to large bilateral pleural effusion. Antibiotics were adjusted. She was continued on meropenem. She was started empirically on amikacin. DC daptomycin and micafungin. DC linezolid. Repeat cultures were done. Patient has anemia with no overt evidence of GI bleed. Stool OB was positive x1. She was given blood transfusion. She was given PPI. Patient remained intubated. She was eventually taken off IV pressors. She was observed off antibiotics. On 06/29/2020, ED physician was called to evaluate ET tube. ET was not achieving good peak pressure. ET was replaced. X-ray postprocedure showed tension pneumothorax on the right side. Thora vent did not help. Chest tube w as inserted to the right midaxillary line. Chest tube was connected to low continuous suction. PEEP was turned down to low setting. Repeat chest x-ray showed complete reexpansion of the right lung without evidence of residual pneumothorax. Hemoglobin dropped to 7.8. She was given blood transfusion. She was continued on proton pump inhibitors. On July 08, patient stented tracheal tube again deflated. ED physician was called. And a new 7.5 endotracheal tube was replaced. A left chest vent was inserted by radiology. On July 10, patient again had cuff leak. Patient was reintubated. Post procedure, x-ray showed left sided pneumothorax. Tracheostomy is indicated. Patient is unable to make decisions. CODE STATUS and tracheostomy consent sent to public guardian. Decision was made to keep the patient full code. Consent was given for tracheostomy. On 07/16/2020, she finally underwent tracheostomy. She tolerated procedure well. Left chest CT was placed to water seal 07/18. Chest x-ray showed diffuse airspace opacities. Left chest tube was eventually removed on July 20. Respiratory parameters were stable. Patient was eventually discharged to [facility]. FINAL DIAGNOSES: Sepsis Status post cardiac arrest on 06/03 Acute hypoxic respiratory failure status post tracheostomy Bilateral pneumothorax status post chest tube placement and removal Persistent high-grade bacteremia Acute kidney injury Drop in hemoglobin requiring blood transfusion Elevated troponin due to demand Sinus bradycardia Thrombocytopenia, resolved Hyponatremia Down syndrome Seizure disorder Hypothyroidism Diabetes mellitus [facility] resident DISPOSITION: Patient was discharged to SNF. I have been assigned to complete a discharge summary on this account, I was not involved with the patient's management.--GALE Allen Jacqueline Robles NP Jul 26, 2020 18:25
== END 2020-07-24 23:27 | DRG 4 ==
LOC: EDBD 11:24 → EDBEDREQ 11:57 → EMR 12:15 → 2W 12:22 → EDBEDREQ 12:37 → 2W 15:20 → ICU 06-03 09:00 → 2W 07-17 23:15
PROC: 06HN33Z Insertion of Infusion Device into Left Femoral Vein, Percutaneous Approach (ICD-10-PCS; principal; 2020-06-04)
PROC: 5A1955Z Respiratory Ventilation, Greater than 96 Consecutive Hours (ICD-10-PCS; principal; 2020-06-04)
PROC: 0BH17EZ Insertion of Endotracheal Airway into Trachea, Via Natural or Artificial Opening (ICD-10-PCS; principal; 2020-06-04)
PROC: 02HV33Z Insertion of Infusion Device into Superior Vena Cava, Percutaneous Approach (ICD-10-PCS; 2020-06-08)
PROC: B548ZZA Ultrasonography of Superior Vena Cava, Guidance (ICD-10-PCS; 2020-06-08)
PROC: 0B21XEZ Change Endotracheal Airway in Trachea, External Approach (ICD-10-PCS; 2020-06-29)
PROC: 0W9930Z Drainage of Right Pleural Cavity with Drainage Device, Percutaneous Approach (ICD-10-PCS; 2020-06-29)
PROC: 0B21XEZ Change Endotracheal Airway in Trachea, External Approach (ICD-10-PCS; 2020-07-08)
PROC: 0B21XEZ Change Endotracheal Airway in Trachea, External Approach (ICD-10-PCS; 2020-07-10)
PROC: 0W9B30Z Drainage of Left Pleural Cavity with Drainage Device, Percutaneous Approach (ICD-10-PCS; 2020-07-10)
PROC: 0B21XEZ Change Endotracheal Airway in Trachea, External Approach (ICD-10-PCS; 2020-07-13)
PROC: 0B110F4 Bypass Trachea to Cutaneous with Tracheostomy Device, Open Approach (ICD-10-PCS; 2020-07-16)
PROC: 0WPBX0Z Removal of Drainage Device from Left Pleural Cavity, External Approach (ICD-10-PCS; 2020-07-20)
DX: A41.9 Sepsis, unspecified organism (principal); J18.9 Pneumonia, unspecified organism; J80 Acute respiratory distress syndrome; I46.9 Cardiac arrest, cause unspecified; R65.21 Severe sepsis with septic shock; J93.0 Spontaneous tension pneumothorax; N17.0 Acute kidney failure with tubular necrosis; G93.49 Other encephalopathy; E87.0 Hyperosmolality and hypernatremia; I24.8 Other forms of acute ischemic heart disease; R71.0 Precipitous drop in hematocrit; Z99.11 Dependence on respirator [ventilator] status; Q90.9 Down syndrome, unspecified; G40.909 Epilepsy, unspecified, not intractable, without status epilepticus; E03.9 Hypothyroidism, unspecified; R13.10 Dysphagia, unspecified; Z93.1 Gastrostomy status; B35.3 Tinea pedis; E87.6 Hypokalemia; R19.7 Diarrhea, unspecified; R00.1 Bradycardia, unspecified; D69.6 Thrombocytopenia, unspecified; Z20.828 Contact with and (suspected) exposure to other viral communicable diseases; Z74.01 Bed confinement status
CPT/HCPCS: 36415; 36569; 36600; 71045; 76770; 76937; 80048; 80053; 80061; 80069; 80076; 80150; 80164; 80202; 81003; 82164; 82270; 82550; 82553; 82607; 82728; 82746; 82803; 82962; 82977; 83036; 83540; 83550; 83605; 83615; 83735; 83880; 84100; 84300; 84439; 84443; 84484; 84550; 85007; 85025; 85060; 85610; 85651; 85730; 86021; 86039; 86140; 86171; 86612; 86635; 86703; 86710; 86713; 86738; 86803; 86850; 86900; 86901; 86920; 87040; 87070; 87081; 87086; 87181; 87205; 87324; 87385; 87449; 87517; 93005; 93306; 93970; 94002; 94003; 94150; 94640; 94660; 94664; 96361; 96365; 96367; 99285; J1815; J2370; J2765; J7030; J7620; J8499; S5561; U0002